=== PATIENT | female | born 1955 | race American Indian/Alaskan Native ===

== ENCOUNTER 2017-02-06 12:57 | Emergency (ER) | payer MEDICARE ==
[2017-02-06 13:29] VITALS: BP 148/95
--- NOTE | 2017-02-06 13:59 | Emergency Department Report ---
Entered by KUMAR ROWE, acting as scribe for ALE PANIAGUA NP. Chief Complaint: Medical Clearance Stated Complaint: NEEDS DIALYSIS - HPI History of Present Illness: 61 y/o female, nontoxic, NAD, well developed, presents to ED to make sure her dialysis port is functioning. She denies fever, chills, drainage, SOB, CP, DRAKE, dizziness, NVD, blurry vision. - Exam Vital Signs: Vital Signs 02/06/17 13:21 Temperature 98.2 F Pulse Rate 86 Respiratory 20 Rate Blood Pressure 148/95 O2 Sat by Pulse 97 Oximetry Physical Exam: GENERAL: The patient is a well-developed, well-nourished male in no apparent distress. Patient is alert and oriented x3. Patient poor historian LUNGS: Clear to auscultation. Non labor breathing. No intercostal retractions. HEART: Regular rate and rhythm without murmur, rubs or gallops. No reproducible MSE screening note: Focused history and physical exam performed. Due to findings the following was ordered: CBC, CMP ED Disposition for MSE Condition: Stable This documentation as recorded by the scribe,KUMAR ROWE,accurately reflects the service I personally performed and the decisions made by me,ALE PANIAGUA, MARIA DOLORES.
[2017-02-06 14:21] LABS: Basophils % (Auto) 0.8 % (0.0-1.8); Hematocrit 35.8 % (30.3-42.9); Hemoglobin 10.6 gm/dl (10.1-14.3); Mean Corpuscular HGB Conc 30 % (30-34); Mean Corpuscular Hemoglobin 26 pg (28-32); Mean Corpuscular Volume 89 fl (79-97); Platelet Count 199 K/mm3 (140-440); Red Blood Count 4.02 M/mm3 (3.65-5.03); Red Cell Distribution Width 20.8 % (13.2-15.2); White Blood Count 3.6 K/mm3 (4.5-11.0)
[2017-02-06 14:41] LABS: Albumin 3.7 g/dL (3.9-5); Albumin/Globulin Ratio 1.2 %; BUN/Creatinine Ratio 6.07; Bilirubin,Total 0.5 mg/dL (0.1-1.2); Calcium 9.8 mg/dL (8.4-10.2); Chloride 107.2 mmol/L (98-107); Potassium 5.8 mmol/L (3.6-5.0); Total Protein 6.8 g/dL (6.3-8.2)
--- NOTE | 2017-02-12 20:37 | ED Elopement Review ---
ED Pt Elopement review - Results review Lab results: Laboratory Tests 02/06/17 02/06/17 13:57 13:57 WBC 3.6 L RBC 4.02 Hgb 10.6 Hct 35.8 MCV 89 MCH 26 L MCHC 30 RDW 20.8 H Plt Count 199 Lymph % (Auto) 34.0 [place] % (Auto) 6.7 Eos % (Auto) 3.0 Baso % (Auto) 0.8 Lymph # 1.2 [place] # 0.2 Eos # 0.1 Baso # 0.0 Seg Neutrophils % 55.5 Seg Neutrophils # 2.0 Sodium 145 Potassium 5.8 H Chloride 107.2 H Carbon Dioxide 22 Anion Gap 22 BUN 48 H Creatinine 7.9 H Estimated GFR 5 BUN/Creatinine Ratio 6.07 Glucose 89 Calcium 9.8 Total Bilirubin 0.50 AST 12 ALT 7 Alkaline Phosphatase 108 Total Protein 6.8 Albumin 3.7 L Albumin/Globulin Ratio 1.2 - Call Back decision Pt Call Back Decision: Pt to F/U with PMD (abnormal lab values)
== END 2017-02-07 03:15 | disposition left against medical advice (07) ==
LOC: ED 12:57
DX: Z46.89 Encounter for fitting and adjustment of other specified devices (principal); Z53.21 Procedure and treatment not carried out due to patient leaving prior to being seen by health care provider
CPT/HCPCS: 36415; 80053; 85025; 93005; 93010

== ENCOUNTER 2019-08-05 17:15 | Inpatient (IN) | payer MEDICARE ==
[2019-08-05] MEDS ORDERED: SODIUM CHLORIDE 0.9% 250ML 250 ML IV ONE (18:35)
--- NOTE | 2019-08-05 18:48 | Emergency Department Report ---
HPI - General Chief Complaint: Extremity Problem,Nontraumatic Time Seen by Provider: 08/05/19 18:28 - HPI HPI: 64-year-old -Citizen Of [place] female presents to the emergency department via EMS from her [facility] facility with complaint of a malfunctioning right chest dialysis permacath. The patient apparently gets dialysis on Sunday, and Sunday and they were unable to do it today due to this clogged or malfunctioning dialysis port. 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 She also has a past medical history of hypertension, drug induced dyskinesia, dystonia, seizures, anemia, anxiety, hyperparathyroidism, schizophrenia, bipolar disorder. Patient has no physical complaints at this time. ED Past Medical Hx - Past Medical History Hx Renal Disease: Yes (renal failure, M, W, F) Hx Arthritis: Yes Hx Psychiatric Treatment: Yes (bipolar,schizophrenia,severe anxiety) Additional medical history: HD - Surgical History Additional Surgical History: hysterectomy, right chest wall permacath - Social History Smoking Status: Never Smoker - Medications Home Medications: Home Medications Medication Instructions Recorded Confirmed Last Taken Type clonazePAM [KlonoPIN] 0.5 mg PO QHS #14 tablet 05/22/19 Unknown Rx oxyCODONE /ACETAMINOPHEN [Percocet 1 tab PO Q6HR PRN #14 tablet 05/22/19 Unknown Rx 5/325] Divalproex ER [Depakote ER] 1,500 mg PO HS 05/29/19 05/29/19 Unknown History Divalproex ER [Depakote ER] 500 mg PO QAM 05/29/19 05/29/19 Unknown History LORazepam [Ativan] 1 mg PO BID 05/29/19 05/29/19 Unknown History Acetaminophen [Acetaminophen TAB] 650 mg PO Q4H PRN tablet 06/03/19 Unknown Rx Capsaicin 0.075% [Zostrix Hp 1 applic TP TID tube 06/03/19 Unknown Rx 0.075%] QUEtiapine [SEROquel] 200 mg PO QHS tablet 06/03/19 Unknown Rx ED Review of Systems ROS: Stated complaint: CLOGGED DIALYSIS PORT Other details as noted in HPI Comment: All other systems reviewed and negative Constitutional: denies: chills, fever Eyes: denies: eye pain, vision change Respiratory: denies: cough, shortness of breath Cardiovascular: denies: chest pain, edema Gastrointestinal: denies: abdominal pain, vomiting Musculoskeletal: denies: back pain, joint swelling Skin: denies: rash, lesions Neurological: denies: headache, weakness Physical Exam - Physical Exam Physical Exam: GENERAL: The patient is well-developed well-nourished. HENT: Normocephalic. Atraumatic. Patient has moist mucous membranes. EYES: Extraocular motions are intact. NECK: Supple. Trachea is midline. CHEST/LUNGS: Clear to auscultation. There is no respiratory distress noted. There is a dialysis catheter in the right chest wall. No surrounding erythema, purulent discharge or signs or symptoms of infection. HEART/CARDIOVASCULAR: Regular. There is no tachycardia. There is no murmur. ABDOMEN: Abdomen is soft, nontender. Patient has normal bowel sounds. There is no abdominal distention. SKIN: Skin is warm and dry. NEURO: The patient is awake, alert, and cooperative. Follows commands. Normal speech. MUSCULOSKELETAL: There is no tenderness or deformity. There is no evidence of acute injury. ED Course - Consultations Consultation #1: 08/06/19 00:03 I spoke to the patient's nephrology service and Dr. Hooper who has agreed to see the patient is a consult. He has recommended giving the patient a dose of vancomycin secondary to her hypotension in case there is some underlying infection. - Central Line Placement Right Femoral Consent Obtained: verbal consent, emergent situation Time Out Performed: Yes Patient Placed on Monitor/Pulse Ox: Yes MD Prep: mask, gown, gloves Central Line Prep: Chlorhexidine scrub Local Anesthesia Used: Lidocaine 1% Amount of Anesthesia Used (mls): 2 Ultrasound Used for Placement: Yes Central Line Lumen Inserted: triple Central Line Position: good blood return, all ports aspirated, flus, sutured in place with nyl Dressing Applied: Tegaderm, sterile gauze/tape Patient Tolerated Procedure: well Complications: none ED Medical Decision Making - Lab Data Result diagrams: 08/05/19 18:51 08/05/19 18:51 - Radiology Data Radiology results: image reviewed interpreted by me: Chest x-ray does not show any acute process. There are no pleural effusions, obvious pneumonia and there is no pneumothorax. - Medical Decision Making This patient was sent in by her [place] [facility] for a malfunctioning dialysis port in her right chest wall. No signs or symptoms of infection. Chest x-ray does not show any pleural effusions or any other acute process. However the patient presents with hypotension. She was given about 750 mL of IV fluid without any improvement and therefore a right femoral central line was placed. She was s tarted on the Levophed. Nephrology was contacted and consult at. The patient will be admitted to the ICU and was accepted for admission by the hospitalist, Dr. Stroud. - Differential Diagnosis sepsis, hypovolemia, pneumonia Critical Care Time: Yes Critical care time in (mins) excluding proc time.: 31 Critical care attestation.: If time is entered above; I have spent that time in minutes in the direct care of this critically ill patient, excluding procedure time. Critical care time was spent on this patient and doing her initial evaluation, multiple re- evaluations, ordering and interpretation of labs and imaging, discussion with the nephrology service. This does not include the time spent doing the central line procedure. Critical Care Time: 31 minutes ED Disposition Clinical Impression: ESRD (end stage renal disease) Hypotension Qualifiers: Hypotension type: unspecified hypotension type Qualified Code(s): I95.9 - Hypotension, unspecified Problem with dialysis access Qualifiers: Encounter type: initial encounter Qualified Code(s): T82.898A - Other specified complication of vascular prosthetic devices, implants and grafts, initial encounter Disposition: OP ADMIT IP TO THIS HOSP Is pt being admited?: Yes Condition: Serious Time of Disposition: 00:05
[2019-08-05 19:05] LABS: Eosinophils % (Auto) 0.2 % (0.0-4.3); Monocytes # (Auto) 0.6 K/mm3 (0.0-0.8); Monocytes % (Auto) 9.4 % (0.0-7.3)
[2019-08-05 19:11] LABS: Hematocrit 40.4 % (30.3-42.9); Hemoglobin 12.2 gm/dl (10.1-14.3); Mean Corpuscular HGB Conc 30 % (30-34); Mean Corpuscular Volume 94 fl (79-97)
[2019-08-05 19:12] LABS: Basophils % (Auto) 0.5 % (0.0-1.8); Lymphocytes # (Auto) 1.5 K/mm3 (1.2-5.4); Lymphocytes % (Auto) 23.2 % (13.4-35.0); Platelet Count 210 K/mm3 (140-440); Red Cell Distribution Width 20.7 % (13.2-15.2)
[2019-08-05 19:21] LABS: Albumin 3.3 g/dL (3.9-5); Calcium 10.4 mg/dL (8.4-10.2)
--- NOTE | 2019-08-05 19:30 | XRay Report ---
CHEST 1 VIEW 08/05/2019 6:40 PM INDICATION / CLINICAL INFORMATION: MAIN: hypotension Pt from [facility], pt was to receive dialysis today, port is clogged per staff a nd needs "cath exchange". COMPARISON: Chest x-ray 2018 FINDINGS: SUPPORT DEVICES: Right internal jugular dialysis catheter has tip in right atrium, unchanged HEART / MEDIASTINUM: No significant abnormality. LUNGS / PLEURA: No significant pulmonary or pleural abnormality. No pneumothorax. ADDITIONAL FINDINGS: No significant additional findings. IMPRESSION: 1. No acute findings. Signer Name: Jay Rosenberg MD Signed: 08/05/2019 7:25 PM Workstation Name: [id number]
[2019-08-05] MEDS ORDERED: SODIUM CHLORIDE 0.9% 500 ML 500 ML IV ONE (20:12)
[2019-08-05] MEDS ORDERED: VANCOMYCIN/NS 1 GM/250 ML 1 GM/250 ML BAG IV ONE (20:54)
--- NOTE | 2019-08-05 23:26 | History and Physical Report ---
History of Present Illness Date of examination: 08/05/19 History of present illness: 64-year-old oriented a history of end-stage renal disease on dialysis, hypertension, bipolar, schizophrenia was sent to the emergency room from dialysis because of nonfunctioning permacath. She was unable to do dialysis today, patient has no complaints. She is hypotensive emergency room, status post IV fluid bolus and vancomycin. Central line was placed and patient was started on levophed review Of Systems: Constitutional: no weight loss, fever, chills Ears, eyes, nose, mouth and throat: no nasal congestion, no nasal discharge, no sinus pressure, blurry vision, diplopia Neck: No neck pain or rigidity. Cardiovascular: No palpitations Respiratory: No cough, shortness of breath Gastrointestinal: No hematochezia, abdominal pain Genitourinary : no dysuria, frequency , hematuria Musculoskeletal: no muscle ache , joint pain Integumentary: no rash, no pruritis Neurological: no parathesias, focal weakness Endocrine: no cold or heat intolerance, no polyuria or polydipsia Hematologic/Lymphatic: no easy bruising, no easy bleeding, no gland swelling Allergic/Immunologic: no urticaria, no angioedema. PAST MEDICAL HISTORY: end-stage renal disease on dialysis, hypertension, bip olar, schizophrenia PAST SURGICAL HISTORY: Hysterectomy FAMILY HISTORY:hypertension, diabetes SOCIAL HISTORY: Denies tobacco, drugs, alcohol Medications and Allergies Allergies Allergy/AdvReac Type Severity Reaction Status Date / Time Penicillins Allergy Rash Verified 02/06/17 13:29 corn AdvReac Unknown Verified 05/14/19 15:01 Home Medications Medication Instructions Recorded Confirmed Last Taken Type clonazePAM [KlonoPIN] 0.5 mg PO QHS #14 tablet 05/22/19 08/06/19 Unknown Rx oxyCODONE /ACETAMINOPHEN [Percocet 1 tab PO Q6HR PRN #14 tablet 05/22/19 Unknown Rx 5/325] Divalproex ER [Depakote ER] 1,500 mg PO HS 05/29/19 08/06/19 Unknown History Divalproex ER [Depakote ER] 500 mg PO QAM 05/29/19 08/06/19 Unknown History LORazepam [Ativan] 1 mg PO BID 05/29/19 08/06/19 Unknown History Acetaminophen [Acetaminophen TAB] 650 mg PO Q4H PRN tablet 06/03/19 08/06/19 Unknown Rx Capsaicin 0.075% [Zostrix Hp 1 applic TP TID tube 06/03/19 Unknown Rx 0.075%] QUEtiapine [SEROquel] 200 mg PO QHS tablet 06/03/19 Unknown Rx Active Meds: Active Medications Norepinephrine 8 mg/ Sodium (Chloride) 250 mls @ 3.75 mls/hr IV TITR CONNOR; Protocol Exam - Physical Exam Narrative exam: General Apperance: The patient sitting in bed no acute distress HEENT: Normocephalic, atraumatic. Pupils equally round and reactive to light, extraocular movement intact, and no sclericterus or JVD or thyromegaly or nodule. Neck supple, no carotid bruit, mucous membranes moist, no exudate or erythema Heart: S1-S2, regular is rhythm Lungs: Clear to auscultation bilaterally, breathing comfortable Abdomen: Positive bowel sounds, soft, nontender, nondistended, no organomegaly Extremities: No edema cyanosis clubbing Skin: sacral decubitus, no rash, nodule, warm and dry Neuro:CN 2 -12 intact, motor/sensory intact, speech is fluent - Constitutional Vitals: Temp Pulse Resp BP Pulse Ox 98.2 F 68 12 96/43 96 08/05/19 21:11 08/05/19 21:11 08/05/19 21:11 08/05/19 21:11 08/05/19 21:11 Results - Labs CBC & Chem 7: 08/05/19 18:51 08/05/19 18:51 Labs: Abnormal lab results 08/05/19 08/05/19 Range/Units 18:51 18:51 RDW 20.7 H (13.2-15.2) % [place] % (Auto) 9.4 H (0.0-7.3) % Potassium 5.1 H (3.6-5.0) mmol/L BUN 65 H (7-17) mg/dL Creatinine 10.0 H (0.7-1.2) mg/dL Calcium 10.4 H (8.4-10.2) mg/dL ALT 5 L (7-56) units/L Albumin 3.3 L (3.9-5) g/dL - Imaging and Cardiology EKG: image reviewed Chest x-ray: report reviewed Assessment and Plan Assessment Malfunctional permacath Hypotensive, rule out sepsis End-stage renal disease on dialysis Bipolar Schizophrenia Plan Admit to medicine Renal was consulted to see the patient, continue levophed drip Start IV Levaquin, status post vancomycin, check cardiac enzymes DVT prophylaxis, consult critical care
[2019-08-06] MEDS: NORepinephrine 8 MG in SODIUM CHLORIDE 0.9% 250ML 242 ML IV SCH ×2 (00:10→06:45)
[2019-08-06] MEDS ORDERED: ONDANSETRON 4 MG/2 ML INJ IV PRN (00:20)
[2019-08-06] MEDS ORDERED: ACETAMINOPHEN 325 MG TAB PO PRN (00:20)
[2019-08-06 01:56] LABS: Creatine Kinase MB 2.8 ng/mL (0.0-4.0)
[2019-08-06 03:48] LABS: Chol/HDL Ratio 5.15 %
[2019-08-06] MEDS ORDERED: ACETAMINOPHEN 325 MG TAB ONE (05:48)
[2019-08-06 05:51] LABS: Basophils # (Auto) 0.1 K/mm3 (0.0-0.1); Basophils % (Auto) 0.4 % (0.0-1.8); Eosinophils # (Auto) 0.1 K/mm3 (0.0-0.4); Eosinophils % (Auto) 0.6 % (0.0-4.3); Lymphocytes # (Auto) 1.5 K/mm3 (1.2-5.4); Lymphocytes % (Auto) 10.9 % (13.4-35.0); Mean Corpuscular HGB Conc 31 % (30-34); Mean Corpuscular Volume 93 fl (79-97); Monocytes # (Auto) 1.3 K/mm3 (0.0-0.8); Monocytes % (Auto) 9.3 % (0.0-7.3); Red Blood Count 3.88 M/mm3 (3.65-5.03)
[2019-08-06 05:53] LABS: Hematocrit 36.2 % (30.3-42.9); Hemoglobin 11.1 gm/dl (10.1-14.3); Red Cell Distribution Width 20.8 % (13.2-15.2)
[2019-08-06 06:07] LABS: Calcium 9.8 mg/dL (8.4-10.2)
[2019-08-06 06:09] LABS: Creatine Kinase MB 3.4 ng/mL (0.0-4.0)
[2019-08-06 06:39] LABS: Platelet Count 226 K/mm3 (140-440)
[2019-08-06] MEDS ORDERED: ENOXAPARIN 30 MG/0.3 ML INJ SUB-Q ONE (09:14)
[2019-08-06] MEDS ORDERED: ONDANSETRON 4 MG/2 ML INJ ONE (09:17)
[2019-08-06] MEDS: ENOXAPARIN 30 MG/0.3 ML INJ SUB-Q SCH (09:30)
--- NOTE | 2019-08-06 14:34 | Progress Note ---
Assessment and Plan Assessment and plan: Malfunctional permacath Hypotensive, to rule out sepsis End-stage renal disease on dialysis Bipolar Schizophrenia Plan Admitted to Tele Nephrology consulted to see the patient, continue levophed drip Started on IV Levaquin, status post vancomycin, check cardiac enzymes Consult ID Consult Vasc Surgeon History Interval history: Patient sent in for malfunctioning permcath, found to be hypotensive Hospitalist Physical - Physical exam Narrative exam: Gen: Not in acute distress, lying in bed, HEENT: Normocephalic, atraumatic Neck: supple, no JVD Heart: S1 and S2 reg, no murmurs, rubs or gallop Lungs: Clear to auscultation bilaterally, Permacath right upper chest wall Abd: soft, non tender, non distended, normal BS, Ext: No edema, no clubbing, no cyanosis Neuro: Awake, alert, oriented X 3, no focal neurological signs - Constitutional Vitals: Temp Pulse Resp BP Pulse Ox 98.3 F 76 16 107/58 100 08/06/19 12:15 08/06/19 12:15 08/06/19 12:15 08/06/19 12:15 08/06/19 12:15 Results - Labs CBC & Chem 7: 08/07/19 05:13 08/07/19 05:13 Labs: Laboratory Last Values WBC 14.0 K/mm3 (4.5-11.0) H 08/06/19 05:42 RBC 3.88 M/mm3 (3.65-5.03) 08/06/19 05:42 Hgb 11.1 gm/dl (10.1-14.3) 08/06/19 05:42 Hct 36.2 % (30.3-42.9) 08/06/19 05:42 MCV 93 fl (79-97) 08/06/19 05:42 MCH 29 pg (28-32) 08/06/19 05:42 MCHC 31 % (30-34) 08/06/19 05:42 RDW 20.8 % (13.2-15.2) H 08/06/19 05:42 Plt Count 226 K/mm3 (140-440) 08/06/19 05:42 Lymph % (Auto) 10.9 % (13.4-35.0) L 08/06/19 05:42 [place] % (Auto) 9.3 % (0.0-7.3) H 08/06/19 05:42 Eos % (Auto) 0.6 % (0.0-4.3) 08/06/19 05:42 Baso % (Auto) 0.4 % (0.0-1.8) 08/06/19 05:42 Lymph # 1.5 K/mm3 (1.2-5.4) 08/06/19 05:42 [place] # 1.3 K/mm3 (0.0-0.8) H 08/06/19 05:42 Eos # 0.1 K/mm3 (0.0-0.4) 08/06/19 05:42 Baso # 0.1 K/mm3 (0.0-0.1) 08/06/19 05:42 Seg Neutrophils % 78.8 % (40.0-70.0) H 08/06/19 05:42 Seg Neutrophils # 11.0 K/mm3 (1.8-7.7) H 08/06/19 05:42 Sodium 139 mmol/L (137-145) 08/06/19 05:42 Potassium 4.1 mmol/L (3.6-5.0) 08/06/19 05:42 Chloride 99.9 mmol/L (98-107) 08/06/19 05:42 Carbon Dioxide 17 mmol/L (22-30) L 08/06/19 05:42 Anion Gap 26 mmol/L 08/06/19 05:42 BUN 65 mg/dL (7-17) H 08/06/19 05:42 Creatinine 9.9 mg/dL (0.7-1.2) H 08/06/19 05:42 Estimated GFR 5 ml/min 08/06/19 05:42 BUN/Creatinine Ratio 7 % 08/06/19 05:42 Glucose 158 mg/dL (65-100) H 08/06/19 05:42 Calcium 9.8 mg/dL (8.4-10.2) 08/06/19 05:42 Total Bilirubin 0.20 mg/dL (0.1-1.2) 08/05/19 18:51 AST 20 units/L (5-40) 08/05/19 18:51 ALT 5 units/L (7-56) L 08/05/19 18:51 Alkaline Phosphatase 62 units/L (35-129) 08/05/19 18:51 Total Creatine Kinase 25 units/L (30-135) L 08/06/19 05:42 CK-MB (CK-2) 3.4 ng/mL (0.0-4.0) 08/06/19 05:42 CK-MB (CK-2) Rel Index 13.6 (0-4) H 08/06/19 05:42 Troponin T 0.048 ng/mL (0.00-0.029) H 08/06/19 05:42 Total Protein 7.0 g/dL (6.3-8.2) 08/05/19 18:51 Albumin 3.3 g/dL (3.9-5) L 08/05/19 18:51 Albumin/Globulin Ratio 0.9 % 08/05/19 18:51 Triglycerides 204 mg/dL (2-149) H 08/06/19 01:08 Cholesterol 170 mg/dL (50-199) 08/06/19 01:08 LDL Cholesterol Direct 99 mg/dL (50-130) 08/06/19 01:08 HDL Cholesterol 33 mg/dL (40-59) L 08/06/19 01:08 Cholesterol/HDL Ratio 5.15 % 08/06/19 01:08 TSH 1.170 mlU/mL (0.270-4.200) 08/05/19 19:18 Active Medications - Current Medications Current Medications: Generic Name Dose Route Start Last Admin Trade Name Freq PRN Reason Stop Dose Admin Acetaminophen 650 mg 08/06/19 00:20 08/06/19 05:51 Tylenol PO 650 mg Q4H PRN Administration Pain MILD(1-3)/Fever >100.5/DRAKE Enoxaparin Sodium 30 mg 08/06/19 10:00 08/06/19 09:30 Enoxaparin SUB-Q 30 mg QDAY CONNOR Administration Norepinephrine 8 mg/ Sodium 250 mls @ 3.75 mls/hr 08/05/19 23:45 08/06/19 11:05 Chloride IV 6 mcg/min TITR CONNOR 11.25 mls/hr Titration Protocol 2 MCG/MIN Levofloxacin/Dextrose 250 mg in 50 mls @ 50 mls/hr 08/06/19 22:00 Levaquin 250mg/50ml IV Q24H [facility] Protocol Ondansetron HCl 4 mg 08/06/19 00:20 08/06/19 09:23 Zofran IV 4 mg Q8H PRN Administration Nausea And Vomiting Sodium Chloride 10 ml 08/06/19 10:00 08/06/19 10:23 Sodium Chloride Flush Syringe 10 Ml IV 10 ml BID CONNOR Administration Sodium Chloride 10 ml 08/06/19 00:20 08/06/19 05:40 Sodium Chloride Flush Syringe 10 Ml IV 10 ml PRN PRN Administration LINE FLUSH
[2019-08-06] MEDS ORDERED: ALTEPLASE 2 MG INJ IV ONE ×2 (14:41)
[2019-08-06] MEDS ORDERED: WATER FOR INJ Sterile (PF) 10 ML ONE (14:47)
--- NOTE | 2019-08-06 14:47 | Consultation ---
History of Present Illness - Reason for Consult end stage renal disease - History of Present Illness 64-year-old with medical history significant for hypertension, end-stage renal disease admitted with complaint of malfunctioning PermCath. Was started on norepinephrine since due to hypotension on arrival she denies any shortness of breath denies any orthopnea PND denies any fevers chills denies any nausea or vomiting denies any abdominal pain she has not been able to have dialysis Medications and Allergies Allergies Allergy/AdvReac Type Severity Reaction Status Date / Time Penicillins Allergy Rash Verified 02/06/17 13:29 corn AdvReac Unknown Verified 05/14/19 15:01 Home Medications Medication Instructions Recorded Confirmed Last Taken Type clonazePAM [KlonoPIN] 0.5 mg PO QHS #14 tablet 05/22/19 08/06/19 Unknown Rx oxyCODONE /ACETAMINOPHEN [Percocet 1 tab PO Q6HR PRN #14 tablet 05/22/19 Unknown Rx 5/325] Divalproex ER [Depakote ER] 1,500 mg PO HS 05/29/19 08/06/19 Unknown History Divalproex ER [Depakote ER] 500 mg PO QAM 05/29/19 08/06/19 Unknown History LORazepam [Ativan] 1 mg PO BID 05/29/19 08/06/19 Unknown History Acetaminophen [Acetaminophen TAB] 650 mg PO Q4H PRN tablet 06/03/19 08/06/19 Unknown Rx Capsaicin 0.075% [Zostrix Hp 1 applic TP TID tube 06/03/19 Unknown Rx 0.075%] QUEtiapine [SEROquel] 200 mg PO QHS tablet 06/03/19 Unknown Rx Active Meds: Active Medications Acetaminophen (Tylenol) 650 mg PO Q4H PRN PRN Reason: Pain MILD(1-3)/Fever >100.5/DRAKE Last Admin: 08/06/19 05:51 Dose: 650 mg Documented by: Enoxaparin Sodium (Enoxaparin) 30 mg SUB-Q QDAY CONNOR Last Admin: 08/06/19 09:30 Dose: 30 mg Documented by: Norepinephrine 8 mg/ Sodium (Chloride) 250 mls @ 3.75 mls/hr IV TITR CONNOR; Protocol Last Titration: 08/06/19 11:05 Dose: 6 mcg/min, 11.25 mls/hr Documented by: Levofloxacin/Dextrose (Levaquin 250mg/50ml) 250 mg in 50 mls @ 50 mls/hr IV Q24H CONNOR; Protocol Ondansetron HCl (Zofran) 4 mg IV Q8H PRN PRN Reason: Nausea And Vomiting Last Admin: 08/06/19 09:23 Dose: 4 mg Documented by: Sodium Chloride (Sodium Chloride Flush Syringe 10 Ml) 10 ml IV BID CONNOR Last Admin: 08/06/19 10:23 Dose: 10 ml Documented by: Sodium Chloride (Sodium Chloride Flush Syringe 10 Ml) 10 ml IV PRN PRN PRN Reason: LINE FLUSH Last Admin: 08/06/19 05:40 Dose: 10 ml Documented by: Review of Systems Constitutional: no weight loss, no weight gain Ears, nose, mouth and throat: no deferred, no ear pain, no ear discharge Breasts: no deferred, no normal Cardiovascular: no chest pain, no orthopnea, no dyspnea on exertion Respiratory: no cough, no cough with sputum Gastrointestinal: no abdominal pain, no nausea, no vomiting Musculoskeletal: no neck stiffness, no neck pain Integumentary: no deferred, no rash Neurological: no head injury, no transient paralysis Psychiatric: no anxiety, no memory loss Endocrine: no cold intolerance, no heat intolerance Exam - Vital Signs Vital signs: Vital Signs Temp Pulse Resp BP Pulse Ox 98.1 F 80 14 88/44 100 08/05/19 18:55 08/05/19 18:55 08/05/19 18:55 08/05/19 18:55 08/05/19 18:55 - General Appearance General appearance: well-developed, well-nourished EENT: ATNC, PERRL, mucous membranes moist Neck: Present: neck supple Respiratory: Decreased Breath Sounds Heart: regular, S1S2 Gastrointestinal: Present: normal, normoactive bowel sounds Integumentary: no rash Neurologic: alert and oriented x3, CN 3-12 intact Musculoskeletal: Present: other (no edema) Psychiatric: mood/affect appropriate Results - Lab Results 08/06/19 05:42 08/06/19 05:42 Most recent lab results Calcium 9.8 mg/dL (8.4-10.2) 08/06/19 05:42 Assessment and Plan - Patient Problems (1) ESRD (end stage renal disease) Current Visit: Yes Status: Acute Plan to address problem: ESRD Has malfunctioning PermCath We will attempt alteplase in line We'll discuss with vascular surgery also requires a graft (2) Hypotension Current Visit: Yes Status: Acute Qualifiers: Hypotension type: unspecified hypotension type Qualified Code(s): I95.9 - Hypotension, unspecified Plan to address problem: Hypotension Currently on Levophed We'll add midodrine (3) Anemia in chronic kidney disease Current Visit: No Status: Acute Plan to address problem: Mild anemia Hemoglobin 11 g/dl Secondary to chronic kidney disease Monitor CBC (4) Metabolic acidosis Current Visit: No Status: Acute Plan to address problem: Metabolic acidosis Secondary to chronic kidney disease
[2019-08-06 15:41] LABS: Hepatitis B Surface Antigen Non-Reactive (Negative); Hepatitis C Virus Antibody Non-Reactive (NonReactive)
[2019-08-06] MEDS: MIDODRINE 5 MG TAB PO SCH (18:03)
[2019-08-07 06:15] LABS: Hematocrit 27.3 % (30.3-42.9); Hemoglobin 8.5 gm/dl (10.1-14.3); Mean Corpuscular HGB Conc 31 % (30-34); Mean Corpuscular Volume 92 fl (79-97); Platelet Count 156 K/mm3 (140-440); Red Blood Count 2.95 M/mm3 (3.65-5.03)
[2019-08-07 06:20] LABS: Red Cell Distribution Width 21.1 % (13.2-15.2)
[2019-08-07 06:46] LABS: Calcium 8.9 mg/dL (8.4-10.2)
[2019-08-07] MEDS ORDERED: HEPARIN 10,000 UNITS/10 ML VIAL ONE (08:13)
[2019-08-07] MEDS ORDERED: HEPARIN/NS 5000 UNIT/500ML 500 ML IR ONE (08:13)
[2019-08-07] MEDS ORDERED: LIDOCAINE (2%) 20 MG/1 ML VIAL 20 ML MDV INFILTRATI ONE (08:13)
[2019-08-07] MEDS ORDERED: fentaNYL 100 MCG/2 ML INJ ONE (08:53)
[2019-08-07] MEDS ORDERED: MIDAZOLAM 2 MG/2 ML INJ ONE (08:53)
[2019-08-07] MEDS ORDERED: SODIUM CHLORIDE 0.9% 250ML 250 ML ONE (08:53)
--- NOTE | 2019-08-07 09:26 | Post Operative Note ---
Pre-op diagnosis: ESRD Post-op diagnosis: same Procedure: Right IJ Permcath Exchange with Fibrin Sheath Disruption Anesthesia: MAC, local Surgeon: MELINDA VILLANUEVA Estimated blood loss: minimal Pathology: none Condition: stable Disposition: floor
--- NOTE | 2019-08-07 09:50 | Operative Report ---
STAFF SURGEON: Dr. Edin Gamez. PREOPERATIVE DIAGNOSIS: End-stage renal disease. POSTOPERATIVE DIAGNOSIS: End-stage renal disease. PROCEDURE PERFORMED: 1. Right IJ PermCath exchange with fibrin sheath disruption. 2. Monitored conscious sedation. COMPLICATIONS: None. ESTIMATED BLOOD LOSS: Less than 10 mL. ANESTHESIA: Local MAC. INDICATIONS FOR PROCEDURE: This is a 64-year-old female with end-stage renal disease, on hemodialysis via right IJ Perm-A-Cath, who is currently hospitalized due to a malfunctioning PermCath that failed a TPA infusion; therefore, vascular consultation was obtained for evaluation and possible intervention. The patient was explained the risks, benefits, alternatives of the procedure, expressed understanding and wished to proceed. DESCRIPTION OF PROCEDURE: After appropriate consent was obtained, the patient was brought back to the shellfish processing laborer, placed on table in supine position. The right neck and chest were prepped and draped in the usual sterile fashion with ChloraPrep. Appropriate timeout was performed indicating correct patient, procedure and site of the procedure. We then began the intervention by freeing up the cuff of the existing PermCath with blunt dissection. This was then retracted several centimeters. Then, a diagnostic venogram was performed through the existing PermCath, which demonstrated the 5-Guamanian sheath on the tip of the catheter. A stiff J-wire was then placed through the catheter into the inferior vena cava. The catheter was removed and discarded. The wire was wiped down with 3 swabs of Betadine-soaked gauze and 3 swabs of saline-soaked gauze. We then proceeded to take a 12 mm x 4 cm balloon, placed it over the wire into the SVC and proceeded to perform balloon angioplasty of the fibrin sheath for an effective disruption. This was then taken down and removed. A new 19 cm straight PermCath was placed over the wire into the SVC. The wire was removed. Both lumens fernando blood appropriately, were flushed heparinized saline and appropriate amount of heparin was placed in each port. The catheter was then sutured in place with a 3-0 nylon. Appropriate dressing was placed. The patient tolerated the procedure well, emerged from the conscious sedation and was sent to recovery in stable condition. JOB# [id number] BERTA/VIVEK MORGAN
[2019-08-07] MEDS: MIDODRINE 5 MG TAB PO SCH ×4 (10:02→17:19)
[2019-08-07] MEDS: ENOXAPARIN 30 MG/0.3 ML INJ SUB-Q SCH ×2 (13:26→13:35)
--- NOTE | 2019-08-07 15:54 | Progress Note ---
Assessment and Plan - Patient Problems (1) ESRD (end stage renal disease) Current Visit: Yes Status: Acute Plan to address problem: ESRD on HD continue HDTTS. Has malfunctioning PermCath now s/p perm cath exchange Appreciate vascular surgery also requires a graft (2) Hypotension Current Visit: Yes Status: Acute Qualifiers: Hypotension type: unspecified hypotension type Qualified Code(s): I95.9 - Hypotension, unspecified Plan to address problem: Hypotension off pressors continue midodrine (3) Anemia in chronic kidney disease Current Visit: No Status: Acute Plan to address problem: Mild anemia Hemoglobin 11 g/dl Secondary to chronic kidney disease Monitor CBC (4) Metabolic acidosis Current Visit: No Status: Acute Plan to address problem: Metabolic acidosis Secondary to chronic kidney disease Subjective Interval history: 64-year-old with medical history significant for hypertension, end-stage renal disease admitted with complaint of malfunctioning PermCath. Was started on norepinephrine since due to hypotension on arrival she denies any shortness of breath denies any orthopnea PND denies any fevers chills denies any nausea or vomiting denies any abdominal pain she has not been able to have dialysis Patient seen today completed dialysis s/p perm cath exchange. Objective - Vital Signs Vital signs: Vital Signs - 12hr 08/07/19 08/07/19 08/07/19 04:02 07:45 09:30 Temperature 98.0 F 97.6 F Pulse Rate 71 65 58 L Pulse Rate [ From Monitor] Respiratory 18 16 Rate Blood Pressure 95/41 90/44 O2 Sat by Pulse 97 Oximetry 08/07/19 08/07/19 08/07/19 09:50 10:00 10:15 Temperature Pulse Rate 58 L 52 L 46 L Pulse Rate [ From Monitor] Respiratory Rate Blood Pressure 90/44 94/44 96/46 O2 Sat by Pulse Oximetry 08/07/19 08/07/19 08/07/19 10:30 10:45 11:00 Temperature Pulse Rate 46 L 49 L 41 L Pulse Rate [ From Monitor] Respiratory Rate Blood Pressure 97/46 102/47 90/39 O2 Sat by Pulse Oximetry 08/07/19 08/07/19 08/07/19 11:15 11:30 11:45 Temperature Pulse Rate 41 L 44 L 41 L Pulse Rate [ From Monitor] Respiratory Rate Blood Pressure 94/40 95/41 100/47 O2 Sat by Pulse Oximetry 08/07/19 08/07/19 08/07/19 12:00 12:15 12:30 Temperature Pulse Rate 49 L 42 L 46 L Pulse Rate [ From Monitor] Respiratory Rate Blood Pressure 93/36 90/40 101/43 O2 Sat by Pulse Oximetry 08/07/19 08/07/19 08/07/19 12:45 13:29 13:32 Temperature 97.4 F L Pulse Rate 50 L 50 L 52 L Pulse Rate [ From Monitor] Respiratory 16 Rate Blood Pressure 99/42 99/42 103/42 O2 Sat by Pulse Oximetry 08/07/19 14:17 Temperature Pulse Rate Pulse Rate [ 56 L From Monitor] Respiratory 18 Rate Blood Pressure O2 Sat by Pulse 97 Oximetry - General Appearance General appearance: well-developed, well-nourished EENT: ATNC, PERRL, mucous membranes moist Neck: no JVD Respiratory: Present: Clear to Ascultation Cardiology: regular, S1S2 Gastrointestinal: normal, normoactive bowel sounds Neurologic: CN 3-12 intact, other (awake and alert. ) Psychiatric: mood/affect appropriate - Lab 08/07/19 05:13 08/07/19 05:13 Most recent lab results Calcium 8.9 mg/dL (8.4-10.2) 08/07/19 05:13 - Imaging Chest x-ray: image reviewed (CXR reviewed no edema. ) Medications & Allergies - Medications Allergies/Adverse Reactions: Allergies Penicillins Allergy (Verified 02/06/17 13:29) Rash corn Adverse Reaction (Verified 05/14/19 15:01) Unknown Home Medications: Home Medications Medication Instructions Recorded Confirmed Last Taken Type clonazePAM [KlonoPIN] 0.5 mg PO QHS #14 tablet 05/22/19 08/06/19 Unknown Rx oxyCODONE /ACETAMINOPHEN [Percocet 1 tab PO Q6HR PRN #14 tablet 05/22/19 08/07/19 Unknown Rx 5/325] Divalproex ER [Depakote ER] 1,500 mg PO HS 05/29/19 08/06/19 Unknown History Divalproex ER [Depakote ER] 500 mg PO QAM 05/29/19 08/06/19 Unknown History LORazepam [Ativan] 1 mg PO BID 05/29/19 08/06/19 Unknown History Acetaminophen [Acetaminophen TAB] 650 mg PO Q4H PRN tablet 06/03/19 08/06/19 Unknown Rx Capsaicin 0.075% [Zostrix Hp 1 applic TP TID tube 06/03/19 08/07/19 Unknown Rx 0.075%] QUEtiapine [SEROquel] 200 mg PO QHS tablet 06/03/19 08/07/19 Unknown Rx Active Medications: Generic Name Dose Route Start Last Admin Trade Name Freq PRN Reason Stop Dose Admin Acetaminophen 650 mg 08/06/19 00:20 08/06/19 05:51 Tylenol PO 650 mg Q4H PRN Administration Pain MILD(1-3)/Fever >100.5/DRAKE Enoxaparin Sodium 30 mg 08/06/19 10:00 08/07/19 13:35 Enoxaparin SUB-Q Not Given QDAY [facility] Levofloxacin/Dextrose 250 mg in 50 mls @ 50 mls/hr 08/08/19 10:00 Levaquin 250mg/50ml IV Q48HR [facility] Protocol Midodrine 10 mg 08/06/19 16:00 08/07/19 13:32 Proamatine PO Not Given TID@0800,1200,1600 [facility] Ondansetron HCl 4 mg 08/06/19 00:20 08/06/19 09:23 Zofran IV 4 mg Q8H PRN Administration Nausea And Vomiting Sodium Chloride 10 ml 08/06/19 10:00 08/07/19 13:36 Sodium Chloride Flush Syringe 10 Ml IV 10 ml BID CONNOR Administration Sodium Chloride 10 ml 08/06/19 00:20 08/06/19 05:40 Sodium Chloride Flush Syringe 10 Ml IV 10 ml PRN PRN Administration LINE FLUSH
--- NOTE | 2019-08-07 16:02 | Progress Note ---
Subjective Date of service: 08/07/19 Interval history: patient able to undergo dialysis after permcath exchange without issue. patient no longer requiring levophed. spoke with patient's Farmworker Rice and would like us to take patient for extremity dialysis creation. will plan for left arm av graft insertion tomorrow. NPO p ELIAZAR. Objective - Constitutional Vitals: Vital Signs - 12hr 08/07/19 08/07/19 08/07/19 04:02 07:45 09:30 Temperature 98.0 F 97.6 F Pulse Rate 71 65 58 L Pulse Rate [ From Monitor] Respiratory 18 16 Rate Blood Pressure 95/41 90/44 O2 Sat by Pulse 97 Oximetry 08/07/19 08/07/19 08/07/19 09:50 10:00 10:15 Temperature Pulse Rate 58 L 52 L 46 L Pulse Rate [ From Monitor] Respiratory Rate Blood Pressure 90/44 94/44 96/46 O2 Sat by Pulse Oximetry 08/07/19 08/07/19 08/07/19 10:30 10:45 11:00 Temperature Pulse Rate 46 L 49 L 41 L Pulse Rate [ From Monitor] Respiratory Rate Blood Pressure 97/46 102/47 90/39 O2 Sat by Pulse Oximetry 08/07/19 08/07/19 08/07/19 11:15 11:30 11:45 Temperature Pulse Rate 41 L 44 L 41 L Pulse Rate [ From Monitor] Respiratory Rate Blood Pressure 94/40 95/41 100/47 O2 Sat by Pulse Oximetry 08/07/19 08/07/19 08/07/19 12:00 12:15 12:30 Temperature Pulse Rate 49 L 42 L 46 L Pulse Rate [ From Monitor] Respiratory Rate Blood Pressure 93/36 90/40 101/43 O2 Sat by Pulse Oximetry 08/07/19 08/07/19 08/07/19 12:45 13:29 13:32 Temperature 97.4 F L Pulse Rate 50 L 50 L 52 L Pulse Rate [ From Monitor] Respiratory 16 Rate Blood Pressure 99/42 99/42 103/42 O2 Sat by Pulse Oximetry 08/07/19 14:17 Temperature Pulse Rate Pulse Rate [ 56 L From Monitor] Respiratory 18 Rate Blood Pressure O2 Sat by Pulse 97 Oximetry - Labs CBC & Chem 7: 08/07/19 05:13 08/07/19 05:13 Labs: Abnormal lab results 08/07/19 08/07/19 Range/Units 05:13 05:13 WBC 3.5 L (4.5-11.0) K/mm3 RBC 2.95 L (3.65-5.03) M/mm3 Hgb 8.5 L (10.1-14.3) gm/dl Hct 27.3 L D (30.3-42.9) % RDW 21.1 H (13.2-15.2) % Carbon Dioxide 21 L (22-30) mmol/L BUN 38 H (7-17) mg/dL Creatinine 7.0 H (0.7-1.2) mg/dL Medications & Allergies - Medications Allergies/Adverse Reactions: Allergies Penicillins Allergy (Verified 02/06/17 13:29) Rash corn Adverse Reaction (Verified 05/14/19 15:01) Unknown Home Medications: Home Medications Medication Instructions Recorded Confirmed Last Taken Type clonazePAM [KlonoPIN] 0.5 mg PO QHS #14 tablet 05/22/19 08/06/19 Unknown Rx oxyCODONE /ACETAMINOPHEN [Percocet 1 tab PO Q6HR PRN #14 tablet 05/22/19 08/07/19 Unknown Rx 5/325] Divalproex ER [Depakote ER] 1,500 mg PO HS 05/29/19 08/06/19 Unknown History Divalproex ER [Depakote ER] 500 mg PO QAM 05/29/19 08/06/19 Unknown History LORazepam [Ativan] 1 mg PO BID 05/29/19 08/06/19 Unknown History Acetaminophen [Acetaminophen TAB] 650 mg PO Q4H PRN tablet 06/03/19 08/06/19 Unknown Rx Capsaicin 0.075% [Zostrix Hp 1 applic TP TID tube 06/03/19 08/07/19 Unknown Rx 0.075%] QUEtiapine [SEROquel] 200 mg PO QHS tablet 06/03/19 08/07/19 Unknown Rx Active Medications: Generic Name Dose Route Start Last Admin Trade Name Freq PRN Reason Stop Dose Admin Acetaminophen 650 mg 08/06/19 00:20 08/06/19 05:51 Tylenol PO 650 mg Q4H PRN Administration Pain MILD(1-3)/Fever >100.5/DRAKE Enoxaparin Sodium 30 mg 08/06/19 10:00 08/07/19 13:35 Enoxaparin SUB-Q Not Given QDAY [facility] Levofloxacin/Dextrose 250 mg in 50 mls @ 50 mls/hr 08/08/19 10:00 Levaquin 250mg/50ml IV Q48HR [facility] Protocol Midodrine 10 mg 08/06/19 16:00 08/07/19 13:32 Proamatine PO Not Given TID@0800,1200,1600 [facility] Ondansetron HCl 4 mg 08/06/19 00:20 08/06/19 09:23 Zofran IV 4 mg Q8H PRN Administration Nausea And Vomiting Sodium Chloride 10 ml 08/06/19 10:00 08/07/19 13:36 Sodium Chloride Flush Syringe 10 Ml IV 10 ml BID CONNOR Administration Sodium Chloride 10 ml 08/06/19 00:20 08/06/19 05:40 Sodium Chloride Flush Syringe 10 Ml IV 10 ml PRN PRN Administration LINE FLUSH
--- NOTE | 2019-08-07 16:15 | Consultation ---
History of Present Illness - Reason for Consult Consult date: 08/07/19 SIRS Requesting physician: LEANA MONDRAGON - History of Present Illness 64 y/o female with ESRD on HD, hypertension and schizophrenia admitted on due to a malfunctional HD access. She has a perm cath and was unable to dialyze today. She denies any fever, chills, N/V/D, cough or other respiratory symptoms. She reports she developed a sacral pressure irritation recently and chinchilla. In the ED, temp 98.1, HR 80, BP 88/44. WBC 6.6. CXR negative. Blood culture 08/05/2019 no growth so far. ID consulted for the management of SIRS r/o sepsis. Review of Systems: Bold if positive, otherwise negative General: fevers, chills, rigors HEENT: visual disturbance, diplopia, eye pain Respiratory: cough, sputum, hemoptysis, shortness of breath Cardiovascular: chest pain, syncope Gastrointestinal: nausea, vomiting, diarrhea, abdominal pain Genitourinary: dysuria, hematuria, flank pain Musculoskeletal: neck pain, back pain, joint pain, edema Neurologic: headaches, seizures Hematologic: easy bruising or bleeding Endocrine: night sweats, acute weight loss Skin: left thigh boil, erythema, tenderness Psychiatric: suicidal, homicidal ideation Medications and Allergies Allergies Allergy/AdvReac Type Severity Reaction Status Date / Time Penicillins Allergy Rash Verified 02/06/17 13:29 corn AdvReac Unknown Verified 05/14/19 15:01 Home Medications Medication Instructions Recorded Confirmed Last Taken Type clonazePAM [KlonoPIN] 0.5 mg PO QHS #14 tablet 05/22/19 08/06/19 Unknown Rx oxyCODONE /ACETAMINOPHEN [Percocet 1 tab PO Q6HR PRN #14 tablet 05/22/19 08/07/19 Unknown Rx 5/325] Divalproex ER [Depakote ER] 1,500 mg PO HS 05/29/19 08/06/19 Unknown History Divalproex ER [Depakote ER] 500 mg PO QAM 05/29/19 08/06/19 Unknown History LORazepam [Ativan] 1 mg PO BID 05/29/19 08/06/19 Unknown History Acetaminophen [Acetaminophen TAB] 650 mg PO Q4H PRN tablet 06/03/19 08/06/19 Unknown Rx Capsaicin 0.075% [Zostrix Hp 1 applic TP TID tube 06/03/19 08/07/19 Unknown Rx 0.075%] QUEtiapine [SEROquel] 200 mg PO QHS tablet 06/03/19 08/07/19 Unknown Rx Active Meds: Active Medications Acetaminophen (Tylenol) 650 mg PO Q4H PRN PRN Reason: Pain MILD(1-3)/Fever >100.5/DRAKE Last Admin: 08/06/19 05:51 Dose: 650 mg Documented by: Enoxaparin Sodium (Enoxaparin) 30 mg SUB-Q QDAY [facility] Last Admin: 08/07/19 13:35 Dose: Not Given Documented by: Levofloxacin/Dextrose (Levaquin 250mg/50ml) 250 mg in 50 mls @ 50 mls/hr IV Q48HR [facility]; Protocol Midodrine (Proamatine) 10 mg PO TID@0800,1200,1600 [facility] Last Admin: 08/07/19 13:32 Dose: Not Given Documented by: Ondansetron HCl (Zofran) 4 mg IV Q8H PRN PRN Reason: Nausea And Vomiting Last Admin: 08/06/19 09:23 Dose: 4 mg Documented by: Sodium Chloride (Sodium Chloride Flush Syringe 10 Ml) 10 ml IV BID [facility] Last Admin: 08/07/19 13:36 Dose: 10 ml Documented by: Sodium Chloride (Sodium Chloride Flush Syringe 10 Ml) 10 ml IV PRN PRN PRN Reason: LINE FLUSH Last Admin: 08/06/19 05:40 Dose: 10 ml Documented by: Physical Examination - Physical Exam Narrative exam: Constitutional: Alert, cooperative. No acute distress Head, Ears, Nose: Normocephalic, atraumatic. External ears, nose normal Eyes: Conjunctivae/corneas clear. No icterus. No ptosis. Neck: Supple, no meningeal signs Oral: dentition fair, no thrush Cardiovascular: S1, S2 normal. Respiratory: Good air entry, clear to auscultation bilaterally GI: Soft, non-tender Musculoskeletal: mild january leg edema Skin: +sacral decubitus stage I-II no grossly infected Hem/Lymphatic: No palpable cervical or supraclavicular nodes. No lymphangitis Psych: no agitated Neurological: Awake, oriented - Constitutional Vitals: Vital Signs Temp Pulse Resp BP Pulse Ox 97.4 F L 56 L 18 103/42 97 08/07/19 13:32 08/07/19 14:17 08/07/19 14:17 08/07/19 13:32 08/07/19 14:17 Temperature -Last 24 Hours Temperature 97.4 F Temperature 97.6 F Temperature 98.0 F Temperature 98 F Temperature 97.8 F Temperature 97.7 F Temperature 98.6 F Temperature 98.6 F Results - Labs CBC & Chem 7: 08/07/19 05:13 08/07/19 05:13 Labs: Abnormal lab results 08/07/19 08/07/19 Range/Units 05:13 05:13 WBC 3.5 L (4.5-11.0) K/mm3 RBC 2.95 L (3.65-5.03) M/mm3 Hgb 8.5 L (10.1-14.3) gm/dl Hct 27.3 L D (30.3-42.9) % RDW 21.1 H (13.2-15.2) % Carbon Dioxide 21 L (22-30) mmol/L BUN 38 H (7-17) mg/dL Creatinine 7.0 H (0.7-1.2) mg/dL Assessment and Plan Cultures: Blood culture 08/04/2019 no growth today Assessment: 64 y/o female with ESRD on HD, hypertension and schizophrenia admitted on due to a malfunctional HD access: 1) SIRS r/o sepsis: noted hypotension/shock on admission initially on pressors, wbc was normal then went up to 14K and then 3.5. BP is now better. Blood culture 08/05/2019 no growth so far. CXR negative. Perm cath was exchange noted fibrin sheath. No purulence. Sacral decubitus does not look infected. Recs: f/u blood culture wound care monitor off antibiotics Will follow. Jolynn Walker MD Infectious Diseases Executor Of [employer] [facility] M [phone] O [phone]
--- NOTE | 2019-08-07 20:28 | Progress Note ---
Assessment and Plan Assessment and plan: Malfunctional permacath Hypotensive, to rule out sepsis End-stage renal disease on dialysis Bipolar Schizophrenia Plan Admitted to [facility] Surgeon, did Permcath exchange today Nephrology consulted , following Was on Levophed, weaned off Started on IV Levaquin, status post vancomycin, Consult ID, I discussed with Dr. Landaverde Likely dc home in 1-2 days History Interval history: Patient sent in for malfunctioning permcath, found to be hypotensive Right IJ Permcath exchange Hospitalist Physical - Physical exam Narrative exam: Gen: Not in acute distress, lying in bed, HEENT: Normocephalic, atraumatic Neck: supple, no JVD. RIJ Permcath Heart: S1 and S2 reg, no murmurs, rubs or gallop Lungs: Clear to auscultation bilaterally, Abd: soft, non tender, non distended, normal BS, Ext: No edema, no clubbing, no cyanosis Neuro: Awake, alert, oriented X 3, no focal neurological signs - Constitutional Vitals: Temp Pulse Resp BP Pulse Ox 99.2 F 75 18 103/44 73 L 08/07/19 19:28 08/07/19 19:28 08/07/19 19:28 08/07/19 19:28 08/07/19 19:28 Results - Labs CBC & Chem 7: 08/07/19 05:13 08/07/19 05:13 Labs: Laboratory Last Values WBC 3.5 K/mm3 (4.5-11.0) L 08/07/19 05:13 RBC 2.95 M/mm3 (3.65-5.03) L 08/07/19 05:13 Hgb 8.5 gm/dl (10.1-14.3) L 08/07/19 05:13 Hct 27.3 % (30.3-42.9) L D 08/07/19 05:13 MCV 92 fl (79-97) 08/07/19 05:13 MCH 29 pg (28-32) 08/07/19 05:13 MCHC 31 % (30-34) 08/07/19 05:13 RDW 21.1 % (13.2-15.2) H 08/07/19 05:13 Plt Count 156 K/mm3 (140-440) 08/07/19 05:13 Lymph % (Auto) 10.9 % (13.4-35.0) L 08/06/19 05:42 [place] % (Auto) 9.3 % (0.0-7.3) H 08/06/19 05:42 Eos % (Auto) 0.6 % (0.0-4.3) 08/06/19 05:42 Baso % (Auto) 0.4 % (0.0-1.8) 08/06/19 05:42 Lymph # 1.5 K/mm3 (1.2-5.4) 08/06/19 05:42 [place] # 1.3 K/mm3 (0.0-0.8) H 08/06/19 05:42 Eos # 0.1 K/mm3 (0.0-0.4) 08/06/19 05:42 Baso # 0.1 K/mm3 (0.0-0.1) 08/06/19 05:42 Seg Neutrophils % 78.8 % (40.0-70.0) H 08/06/19 05:42 Seg Neutrophils # 11.0 K/mm3 (1.8-7.7) H 08/06/19 05:42 Sodium 141 mmol/L (137-145) 08/07/19 05:13 Potassium 3.9 mmol/L (3.6-5.0) 08/07/19 05:13 Chloride 102.6 mmol/L (98-107) 08/07/19 05:13 Carbon Dioxide 21 mmol/L (22-30) L 08/07/19 05:13 Anion Gap 21 mmol/L 08/07/19 05:13 BUN 38 mg/dL (7-17) H 08/07/19 05:13 Creatinine 7.0 mg/dL (0.7-1.2) H 08/07/19 05:13 Estimated GFR 7 ml/min 08/07/19 05:13 BUN/Creatinine Ratio 5 % 08/07/19 05:13 Glucose 84 mg/dL (65-100) 08/07/19 05:13 Calcium 8.9 mg/dL (8.4-10.2) 08/07/19 05:13 Total Bilirubin 0.20 mg/dL (0.1-1.2) 08/05/19 18:51 AST 20 units/L (5-40) 08/05/19 18:51 ALT 5 units/L (7-56) L 08/05/19 18:51 Alkaline Phosphatase 62 units/L (35-129) 08/05/19 18:51 Total Creatine Kinase 25 units/L (30-135) L 08/06/19 05:42 CK-MB (CK-2) 3.4 ng/mL (0.0-4.0) 08/06/19 05:42 CK-MB (CK-2) Rel Index 13.6 (0-4) H 08/06/19 05:42 Troponin T 0.048 ng/mL (0.00-0.029) H 08/06/19 05:42 Total Protein 7.0 g/dL (6.3-8.2) 08/05/19 18:51 Albumin 3.3 g/dL (3.9-5) L 08/05/19 18:51 Albumin/Globulin Ratio 0.9 % 08/05/19 18:51 Triglycerides 204 mg/dL (2-149) H 08/06/19 01:08 Cholesterol 170 mg/dL (50-199) 08/06/19 01:08 LDL Cholesterol Direct 99 mg/dL (50-130) 08/06/19 01:08 HDL Cholesterol 33 mg/dL (40-59) L 08/06/19 01:08 Cholesterol/HDL Ratio 5.15 % 08/06/19 01:08 TSH 1.170 mlU/mL (0.270-4.200) 08/05/19 19:18 Hepatitis A IgM Ab Non-reactive (NonReactive) 08/06/19 15:04 Hep Bs Antigen Non-reactive (Negative) 08/06/19 15:04 Hep B Core IgM Ab Non-reactive (NonReactive) 08/06/19 15:04 Hepatitis C Antibody Non-reactive (NonReactive) 08/06/19 15:04 Active Medications - Current Medications Current Medications: Generic Name Dose Route Start Last Admin Trade Name Freq PRN Reason Stop Dose Admin Acetaminophen 650 mg 08/06/19 00:20 08/06/19 05:51 Tylenol PO 650 mg Q4H PRN Administration Pain MILD(1-3)/Fever >100.5/DRAKE Enoxaparin Sodium 30 mg 08/06/19 10:00 08/07/19 13:35 Enoxaparin SUB-Q Not Given QDAY [facility] Levofloxacin/Dextrose 250 mg in 50 mls @ 50 mls/hr 08/08/19 10:00 Levaquin 250mg/50ml IV Q48HR [facility] Protocol Midodrine 10 mg 08/06/19 16:00 08/07/19 17:19 Proamatine PO Not Given TID@0800,1200,1600 [facility] Ondansetron HCl 4 mg 08/06/19 00:20 08/06/19 09:23 Zofran IV 4 mg Q8H PRN Administration Nausea And Vomiting Sodium Chloride 10 ml 08/06/19 10:00 08/07/19 13:36 Sodium Chloride Flush Syringe 10 Ml IV 10 ml BID [facility] Administration Sodium Chloride 10 ml 08/06/19 00:20 08/06/19 05:40 Sodium Chloride Flush Syringe 10 Ml IV 10 ml PRN PRN Administration LINE FLUSH Nutrition/Malnutrition Assess - Dietary Evaluation Nutrition/Malnutrition Findings: Nutrition Notes Start: 08/07/19 13:51 Freq: Status: Active Protocol: Document 08/07/19 13:51 MOO (Rec: 08/07/19 14:06 MOO [id number]) Co-Sign 08/07/19 13:51 KH Nutrition Notes Need for 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 Weight Status Appropriate Subjective/Other Information RD screen for skin risk assessment per RN. Kale score was 14. Pt seemed slightly confused. Pt stated her appetite was fair. She stated that she has been nauseous. 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 Explained how Josep works and pt denied it. Burn Absent Trauma Absent GI Symptoms Nausea Current % PO Negligible Minimum of two criteria No physical signs of malnutrition #1 Nutrition Diagnosis Increased nutrient needs ( specify in comment below) Comments: Protein Etiology Wound healing As Evidenced by Signs and Symptoms Left buttock skin tear Is patient on ventilator? No Is Patient Ambulatory and/or Out of Bed No REE-(Bullock-St. Jeor-confined to bed) 1391.496 Kcal/Kg value to use for calculation 25 Approximate Energy Requirements Using 1563 kcal/Kg Calculation Used for Recommendations Kcal/kg Additional Notes Protein: 75g/kg (>1.2g/kg) Fluid: 1ml/kcal Nutrition Intervention Change Diet Order: Continue current Add Supplement/Snack (indicate name/kcal Nepro daily /protein ) Provides kCal: 425 Provides Protein (gm) 19 Goal #1 Meet at least 80% of energy and protein needs via PO and ONS intake Goal #2 Wound healing Anticipated Discharge Needs: Renal diet Follow-Up By: 08/12/19 Additional Comments F/U for ONS and PO intake
[2019-08-08 06:25] LABS: Hematocrit 26.3 % (30.3-42.9); Hemoglobin 8.2 gm/dl (10.1-14.3); Mean Corpuscular HGB Conc 31 % (30-34); Mean Corpuscular Volume 92 fl (79-97); Platelet Count 138 K/mm3 (140-440); Red Blood Count 2.86 M/mm3 (3.65-5.03)
[2019-08-08 06:31] LABS: Red Cell Distribution Width 20.8 % (13.2-15.2)
[2019-08-08 06:55] LABS: Calcium 9.3 mg/dL (8.4-10.2)
[2019-08-08 07:32] VITALS: BP 99/47
[2019-08-08] MEDS ORDERED: PROTAMINE SULFATE 50 MG/5 ML INJ ONE (08:03)
[2019-08-08] MEDS ORDERED: SODIUM CHLORIDE 0.9% 250ML 0 ML ONE (08:03)
[2019-08-08] MEDS ORDERED: HEPARIN 10,000 UNITS/10 ML VIAL ONE (08:03)
[2019-08-08] MEDS ORDERED: GELATIN SPONGE SIZE 100 TP ONE (08:04)
[2019-08-08] MEDS ORDERED: THROMBIN (RECOMBINANT) 5,000 UNIT VIAL TP ONE (08:04)
[2019-08-08] MEDS: MIDODRINE 5 MG TAB PO SCH ×2 (09:19→13:27)
[2019-08-08] MEDS: ENOXAPARIN 30 MG/0.3 ML INJ SUB-Q SCH (09:20)
--- NOTE | 2019-08-08 11:07 | Discharge Summary ---
Providers - Providers Date of Admission: 08/05/19 23:24 Date of discharge: 08/08/19 Attending physician: FRANCO SORTO 08/06/19 10:30 Consult to Physician [CONS] Routine Comment: Consulting Provider: NEREYDA GONZÁLES Physician Instructions: Reason For Exam: ESRD-patient known to him-Notified group today. 08/06/19 14:46 Consult to Physician [CONS] Routine Comment: Consulting Provider: MICHEAL JEAN BAPTISTE Physician Instructions: Reason For Exam: Hypotension, sepsis 08/06/19 15:04 Consult to Physician [CONS] Routine Comment: Consulting Provider: MELINDA VILLANUEVA Physician Instructions: Reason For Exam: PERM CATH AND AV GRAFT PLACEMENT Primary care physician: PRESALES SENIOR SPECIALIST Hospitalization Condition: Serious Pertinent studies: CXR Hospital course: 64 y/o female with ESRD on HD, hypertension and schizophrenia admitted on due to a malfunctional HD access. She has a perm cath and was unable to dialyze. She was sent to ER for further Mx. vascular consulted and her permcath was exchanged. She was planned for AV fistulla placement before discharge. On the day of procedure patient declined the procedure. Her BP was low on admission required pressor, her Cx workup was negative. She was then discharged back to SNF in stable condition. Discharge diagnosis: Malfunctional permacath, s/pPermcath exchange - planned for AV fistula placement today but she refused before the procedure- outpt f/u with vascular Hypotensive, ruled out sepsis, blood cx negative - s/p levophed, resolved, off abx per ID End-stage renal disease on dialysis h/o Bipolar disorder and Schizophrenia - outpt f/u Disposition: DC/[place]-03 SNF [facility] CERT Time spent for discharge: 34 minutes Core Measure Documentation - Palliative Care Palliative Care/ Comfort Measures: Not Applicable - Core Measures Any of the following diagnoses?: none Exam - Physical Exam Narrative exam: Gen: Not in acute distress, lying in bed, HEENT: Normocephalic, atraumatic Neck: supple, no JVD. RIJ Permcath Heart: S1 and S2 reg, no murmurs, rubs or gallop Lungs: Clear to auscultation bilaterally, Abd: soft, non tender, non distended, normal BS, Ext: No edema, no clubbing, no cyanosis Neuro: Awake, alert, oriented X 3, no focal neurological signs - Constitutional Vitals: Temp Pulse Resp BP Pulse Ox 98.3 F 72 18 99/47 95 08/08/19 07:29 08/08/19 07:29 08/08/19 08:50 08/08/19 07:29 08/08/19 10:00 Plan Activity: advance as tolerated Weight Bearing Status: Non-Weight Bearing Diet: renal Additional Instructions: f/u at [facility] in one week Follow up with: PRIMARY CAREMD [Primary Care Provider] - 7 Days
--- NOTE | 2019-08-08 14:17 | Progress Note ---
Subjective Date of service: 08/08/19 Interval history: s/p permcath exchange no issues on dialysis attempted to take patient for graft insertion today but she refused surgery today and is asking to be taken to [place] concerned patient having psychotic break due to being off meds patient likely to benefit from psych eval and to re-evaluate for graft placement Objective - Constitutional Vitals: Vital Signs - 12hr 08/08/19 08/08/19 08/08/19 03:39 07:29 08:50 Temperature 98.0 F 98.3 F Pulse Rate 76 72 Respiratory 18 18 18 Rate Blood Pressure 123/39 99/47 O2 Sat by Pulse 97 100 97 Oximetry 08/08/19 10:00 Temperature Pulse Rate 71 Respiratory Rate Blood Pressure O2 Sat by Pulse 95 Oximetry - Labs CBC & Chem 7: 08/08/19 06:04 08/08/19 06:04 Labs: Abnormal lab results 08/08/19 08/08/19 Range/Units 06:04 06:04 WBC 3.7 L (4.5-11.0) K/mm3 RBC 2.86 L (3.65-5.03) M/mm3 Hgb 8.2 L (10.1-14.3) gm/dl Hct 26.3 L (30.3-42.9) % RDW 20.8 H (13.2-15.2) % Plt Count 138 L (140-440) K/mm3 Creatinine 4.6 H (0.7-1.2) mg/dL Medications & Allergies - Medications Allergies/Adverse Reactions: Allergies Penicillins Allergy (Verified 02/06/17 13:29) Rash corn Adverse Reaction (Verified 05/14/19 15:01) Unknown Home Medications: Home Medications Medication Instructions Recorded Confirmed Last Taken Type clonazePAM [KlonoPIN] 0.5 mg PO QHS #14 tablet 05/22/19 08/06/19 Unknown Rx Divalproex ER [Depakote ER] 1,500 mg PO HS 05/29/19 08/06/19 Unknown History Divalproex ER [Depakote ER] 500 mg PO QAM 05/29/19 08/06/19 Unknown History Acetaminophen [Acetaminophen TAB] 650 mg PO Q4H PRN tablet 06/03/19 08/06/19 Unknown Rx Capsaicin 0.075% [Zostrix Hp 1 applic TP TID tube 06/03/19 08/07/19 Unknown Rx 0.075%] QUEtiapine [SEROquel] 200 mg PO QHS tablet 06/03/19 08/07/19 Unknown Rx Midodrine [Proamatine] 10 mg PO TID@0800,1200,1600 #30 08/08/19 Unknown Rx tablet Active Medications: Generic Name Dose Route Start Last Admin Trade Name Freq PRN Reason Stop Dose Admin Acetaminophen 650 mg 08/06/19 00:20 08/06/19 05:51 Tylenol PO 650 mg Q4H PRN Administration Pain MILD(1-3)/Fever >100.5/DRAKE Enoxaparin Sodium 30 mg 08/06/19 10:00 08/08/19 09:20 Enoxaparin SUB-Q Not Given QDAY [facility] Midodrine 10 mg 08/06/19 16:00 08/08/19 13:27 Proamatine PO Not Given TID@0800,1200,1600 [facility] Ondansetron HCl 4 mg 08/06/19 00:20 08/06/19 09:23 Zofran IV 4 mg Q8H PRN Administration Nausea And Vomiting Sodium Chloride 10 ml 08/06/19 10:00 08/08/19 13:27 Sodium Chloride Flush Syringe 10 Ml IV Not Given BID [facility]NOR Sodium Chloride 10 ml 08/06/19 00:20 08/06/19 05:40 Sodium Chloride Flush Syringe 10 Ml IV 10 ml PRN PRN Administration LINE FLUSH
--- NOTE | 2019-08-08 15:30 | Progress Note ---
Assessment and Plan - Patient Problems (1) ESRD (end stage renal disease) Current Visit: Yes Status: Acute Plan to address problem: ESRD on HD continue HDTTS. Has malfunctioning PermCath now s/p perm cath exchange Appreciate vascular surgery also requires a graft Patient refusing all procedures has not received psych meds during his hospitalization (2) Hypotension Current Visit: Yes Status: Acute Qualifiers: Hypotension type: unspecified hypotension type Qualified Code(s): I95.9 - Hypotension, unspecified Plan to address problem: Hypotension off pressors continue midodrine (3) Anemia in chronic kidney disease Current Visit: No Status: Acute Plan to address problem: Mild anemia Hemoglobin 11 g/dl Secondary to chronic kidney disease Monitor CBC (4) Metabolic acidosis Current Visit: No Status: Acute Plan to address problem: Metabolic acidosis Secondary to chronic kidney disease Subjective Interval history: 64-year-old with medical history significant for hypertension, end-stage renal disease admitted with complaint of malfunctioning PermCath. Was started on norepinephrine since due to hypotension on arrival she denies any shortness of breath denies any orthopnea PND denies any fevers chills denies any nausea or vomiting denies any abdominal pain she has not been able to have dialysis Patient seen today Unfortunately she did not receive psychotropic medications during this hospitalization and this has affected her ability to make any reasonable decision Discussed with hospital physician patient psychotropic medications need to be started Per hospital team she is being discharged today Objective - Vital Signs Vital signs: Vital Signs - 12hr 08/08/19 08/08/19 08/08/19 03:39 07:29 08:50 Temperature 98.0 F 98.3 F Pulse Rate 76 72 Respiratory 18 18 18 Rate Blood Pressure 123/39 99/47 O2 Sat by Pulse 97 100 97 Oximetry 08/08/19 10:00 Temperature Pulse Rate 71 Respiratory Rate Blood Pressure O2 Sat by Pulse 95 Oximetry - General Appearance General appearance: well-developed, well-nourished EENT: ATNC, PERRL Neck: no JVD Respiratory: Present: Clear to Ascultation Cardiology: regular, S1S2 Gastrointestinal: normal, normoactive bowel sounds Integumentary: no rash Neurologic: no focal deficit, CN 3-12 intact Psychiatric: mood/affect appropriate - Lab 08/08/19 06:04 08/08/19 06:04 Most recent lab results Calcium 9.3 mg/dL (8.4-10.2) 08/08/19 06:04 - Imaging Chest x-ray: image reviewed (chest x-ray reviewed without edema) Medications & Allergies - Medications Allergies/Adverse Reactions: Allergies Penicillins Allergy (Verified 02/06/17 13:29) Rash corn Adverse Reaction (Verified 05/14/19 15:01) Unknown Home Medications: Home Medications Medication Instructions Recorded Confirmed Last Taken Type clonazePAM [KlonoPIN] 0.5 mg PO QHS #14 tablet 05/22/19 08/06/19 Unknown Rx Divalproex ER [Depakote ER] 1,500 mg PO HS 05/29/19 08/06/19 Unknown History Divalproex ER [Depakote ER] 500 mg PO QAM 05/29/19 08/06/19 Unknown History Acetaminophen [Acetaminophen TAB] 650 mg PO Q4H PRN tablet 06/03/19 08/06/19 Unknown Rx Capsaicin 0.075% [Zostrix Hp 1 applic TP TID tube 06/03/19 08/07/19 Unknown Rx 0.075%] QUEtiapine [SEROquel] 200 mg PO QHS tablet 06/03/19 08/07/19 Unknown Rx Midodrine [Proamatine] 10 mg PO TID@0800,1200,1600 #30 08/08/19 Unknown Rx tablet Active Medications: Generic Name Dose Route Start Last Admin Trade Name Freq PRN Reason Stop Dose Admin Acetaminophen 650 mg 08/06/19 00:20 08/06/19 05:51 Tylenol PO 650 mg Q4H PRN Administration Pain MILD(1-3)/Fever >100.5/DRAKE Enoxaparin Sodium 30 mg 08/06/19 10:00 08/08/19 09:20 Enoxaparin SUB-Q Not Given QDAY [facility] Midodrine 10 mg 08/06/19 16:00 08/08/19 13:27 Proamatine PO Not Given TID@0800,1200,1600 [facility] Ondansetron HCl 4 mg 08/06/19 00:20 08/06/19 09:23 Zofran IV 4 mg Q8H PRN Administration Nausea And Vomiting Sodium Chloride 10 ml 08/06/19 10:00 08/08/19 13:27 Sodium Chloride Flush Syringe 10 Ml IV Not Given BID CONNOR Sodium Chloride 10 ml 08/06/19 00:20 08/06/19 05:40 Sodium Chloride Flush Syringe 10 Ml IV 10 ml PRN PRN Administration LINE FLUSH
== END 2019-08-08 15:45 | DRG 314 ==
LOC: ED 17:15 → CC1 23:24 → 4A 08-06 20:40
PROVIDERS: ADMIT Internal Medicine; ATTEND Internal Medicine
PROC: 06HY33Z Insertion of Infusion Device into Lower Vein, Percutaneous Approach (ICD-10-PCS; 2019-08-05)
PROC: B54BZZA Ultrasonography of Right Lower Extremity Veins, Guidance (ICD-10-PCS; 2019-08-05)
PROC: 5A1D70Z Performance of Urinary Filtration, Intermittent, Less than 6 Hours Per Day (ICD-10-PCS; 2019-08-06)
PROC: 0JPT3XZ Removal of Tunneled Vascular Access Device from Trunk Subcutaneous Tissue and Fascia, Percutaneous Approach (ICD-10-PCS; principal; 2019-08-07)
PROC: 0JH63XZ Insertion of Tunneled Vascular Access Device into Chest Subcutaneous Tissue and Fascia, Percutaneous Approach (ICD-10-PCS; 2019-08-07)
PROC: 06PY33Z Removal of Infusion Device from Lower Vein, Percutaneous Approach (ICD-10-PCS; 2019-08-07)
PROC: 02HV33Z Insertion of Infusion Device into Superior Vena Cava, Percutaneous Approach (ICD-10-PCS; 2019-08-07)
PROC: 5A1D70Z Performance of Urinary Filtration, Intermittent, Less than 6 Hours Per Day (ICD-10-PCS; 2019-08-07)
DX: T82.41XA Breakdown (mechanical) of vascular dialysis catheter, initial encounter (principal); N18.6 End stage renal disease; E87.2 Acidosis; R65.10 Systemic inflammatory response syndrome (SIRS) of non-infectious origin without acute organ dysfunction; N25.81 Secondary hyperparathyroidism of renal origin; I95.9 Hypotension, unspecified; F31.9 Bipolar disorder, unspecified; Y83.8 Other surgical procedures as the cause of abnormal reaction of the patient, or of later complication, without mention of misadventure at the time of the procedure; D63.1 Anemia in chronic kidney disease; F20.9 Schizophrenia, unspecified; D64.9 Anemia, unspecified; F41.9 Anxiety disorder, unspecified; Z90.710 Acquired absence of both cervix and uterus; Z82.49 Family history of ischemic heart disease and other diseases of the circulatory system; Z83.3 Family history of diabetes mellitus; Z88.0 Allergy status to penicillin; Y92.128 Other place in nursing home as the place of occurrence of the external cause
CPT/HCPCS: 36415; 36581; 37248; 71045; 77001; 80048; 80053; 80061; 80074; 82550; 82553; 82962; 84443; 84484; 85025; 85027; 87040; 94760; G0378; A4649; C1725; C1750; J1644; J1650; J1956; J2250; J2405; J2720; J2997; J3010; J3370; J7040; J7050; Q9967

== ENCOUNTER 2019-09-07 12:16 | Inpatient (IN) | payer MEDICARE ==
[2019-09-07] MEDS ORDERED: SODIUM CHLORIDE 0.9% 1000 ML 1,000 ML ONE (12:32)
[2019-09-07] MEDS ORDERED: SODIUM CHLORIDE 0.9% 1000 ML IV SOLN IV ONE (13:02)
[2019-09-07] MEDS ORDERED: VANCOMYCIN 1,250 MG in SODIUM CHLORIDE 0.9% 500 ML 500 ML IV ONE (13:02)
[2019-09-07] MEDS ORDERED: ACETAMINOPHEN 650 MG RECT SUPP PR ONE (13:04)
[2019-09-07] MEDS ORDERED: ACETAMINOPHEN 325 MG RECT SUPP PR ONE (13:19)
[2019-09-07] MEDS ORDERED: VANCOMYCIN 1,250 MG in SODIUM CHLORIDE 0.9% 250ML 250 ML IV ONE (13:30)
--- NOTE | 2019-09-07 13:44 | XRay Report ---
CHEST 1 VIEW INDICATION: fever. COMPARISON: 08/05/2019. FINDINGS: Support devices: Right IJ dialysis catheter unchanged. Heart: Within normal limits. Lungs/Pleura: Linear density left base is likely atelectasis. Additional findings: None. IMPRESSION: Suspect left basilar atelectasis. Signer Name: Vitaliy Lozoya MD Signed: 09/07/2019 1:40 PM Workstation Name: [id number]
--- NOTE | 2019-09-07 13:45 | Emergency Department Report ---
ED Fever HPI - General Chief Complaint: Fever Stated Complaint: SEPTIC Time Seen by Provider: 09/07/19 12:32 Source: EMS, snf records, old records Exam Limitations: clinical condition, physical impairment - History of Present Illness Initial Comments: 64-year-old female with multiple chronic medical conditions including schizophrenia, bipolar, end-stage renal disease on dialysis Sunday, , Sunday, sacral decubitus ulcer, hypertension, drug induced dyskinesia, dystonia, seizures, anemia, anxiety,and hyperparathyroidism disorder presents with fever and hypotension from the snf. long-term reports an temperature of 106.7, BP of 70/50, respiratory rate 20, heart rate 98. Patient is unable to provide any detailed history of present illness able to follow some basic commands and answer some yes and no questions. Patient also name is otherwise not oriented to place or year. No pain reported. EMS EKG reveals a sinus tach at 140 rate. As per medical record review patient was recently admitted here in July for Sirs/sepsis. long-term reports that patient recently had a right sided chest wall dialysis catheter replaced. Market Research Consultant: Dr. Love ED Review of Systems ROS: Stated complaint: SEPTIC Other details as noted in HPI Comment: Unobtainable due to pts medical conditions ED Past Medical Hx - Past Medical History Previous Medical History?: Yes Hx Hypertension: Yes Hx Renal Disease: Yes Hx Arthritis: Yes Hx Seizures: Yes (DAILY MEDS) Hx Psychiatric Treatment: Yes (bipolar,schizophrenia,severe anxiety) Hx Dementia: Yes Hx HIV: No Additional medical history: HD - Surgical History Additional Surgical History: hysterectomy, right chest wall permacath - Social History Smoking Status: Unknown if ever smoked - Medications Home Medications: Home Medications Medication Instructions Recorded Confirmed Last Taken Type clonazePAM [KlonoPIN] 0.5 mg PO QHS #14 tablet 05/22/19 09/07/19 Unknown Rx Divalproex ER [Depakote ER] 1,500 mg PO HS 05/29/19 09/07/19 Unknown History Divalproex ER [Depakote ER] 500 mg PO QAM 05/29/19 09/07/19 Unknown History Acetaminophen [Acetaminophen TAB] 650 mg PO Q4H PRN tablet 06/03/19 09/07/19 Unknown Rx Calcium Acetate [Phoslo] 667 mg PO TID 08/20/19 09/07/19 Unknown History LORazepam [Ativan] 1 mg PO BID 08/20/19 09/07/19 Unknown History Memantine Xr [Namenda Xr] 5 mg PO DAILY 08/20/19 09/07/19 Unknown History Midodrine [Proamatine] 10 mg PO TID 08/20/19 09/07/19 Unknown History QUEtiapine [SEROquel] 400 mg PO QHS 08/20/19 09/07/19 Unknown History ED Physical Exam - General Limitations: Altered Mental Status - Other Other exam information: General: No acute distress Head: Atraumatic Eyes: normal appearance ENT: Dry mucous membranes Neck: Normal appearance, no midline tenderness Chest: Clear to auscultation bilaterally CV: Tachycardic regular rhythm Abdomen: Soft, normal bowel sounds, nontender, nondistended, no rebound or guarding Back: Normal inspection Extremity: Normal inspection infection, full range of motion Neuro: Lethargic but easily arousable oriented to self only, 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 Sensation grossly intact Psych: Appropriate behavior Skin: Sacral decubitus ulcer without obvious signs of infection ED Course Vital Signs 09/07/19 09/07/19 09/07/19 12:24 12:30 12:33 Temperature 101.9 F H Pulse Rate 116 H 113 H Respiratory 46 H 32 H Rate Blood Pressure 74/29 74/29 Blood Pressure [Right] O2 Sat by Pulse 92 99 99 Oximetry 09/07/19 09/07/19 09/07/19 12:46 13:00 13:16 Temperature Pulse Rate 115 H 118 H 109 H Respiratory 31 H 11 L 12 Rate Blood Pressure 74/29 74/41 74/41 Blood Pressure [Right] O2 Sat by Pulse 98 95 100 Oximetry 09/07/19 09/07/19 09/07/19 13:30 14:23 15:53 Temperature 99.1 F Pulse Rate 113 H 104 H 102 H Respiratory 11 L 26 H 15 Rate Blood Pressure 86/38 Blood Pressure 99/40 98/45 [Right] O2 Sat by Pulse 100 98 100 Oximetry - Consultations Consultation #1: 09/07/19 16:35 Dr Pino thurman informed, consult ordered - Central Line Placement Right Femoral Consent Obtained: verbal consent Time Out Performed: Yes Patient Placed on Monitor/Pulse Ox: Yes MD Prep: mask, gown, gloves, other Central Line Prep: Chlorhexidine scrub Local Anesthesia Used: Lidocaine 1% Amount of Anesthesia Used (mls): 5 Ultrasound Used for Placement: No Central Line Lumen Inserted: triple Bloods Obtained for Lab: Yes Central Line Position: good blood return, sutured in place with nyl Dressing Applied: Tegaderm Patient Tolerated Procedure: well Complications: none ED Medical Decision Making - Lab Data Result diagrams: 09/07/19 15:38 09/07/19 12:45 Lab Results 09/07/19 09/07/19 09/07/19 Range/Units 12:45 12:45 12:45 WBC (4.5-11.0) K/mm3 RBC (3.65-5.03) M/mm3 Hgb (10.1-14.3) gm/dl Hct (30.3-42.9) % MCV (79-97) fl MCH (28-32) pg MCHC (30-34) % RDW (13.2-15.2) % Plt Count (140-440) K/mm3 Lymph % (Auto) (13.4-35.0) % [place] % (Auto) (0.0-7.3) % Eos % (Auto) (0.0-4.3) % Baso % (Auto) (0.0-1.8) % Lymph # (1.2-5.4) K/mm3 [place] # (0.0-0.8) K/mm3 Eos # (0.0-0.4) K/mm3 Baso # (0.0-0.1) K/mm3 Seg Neutrophils % (40.0-70.0) % Seg Neutrophils # (1.8-7.7) K/mm3 APTT 28.0 (24.2-36.6) Sec. VBG pH (7.320-7.420) Sodium 139 (137-145) mmol/L Potassium 3.3 L (3.6-5.0) mmol/L Chloride 102.0 (98-107) mmol/L Carbon Dioxide 18 L (22-30) mmol/L Anion Gap 22 mmol/L BUN 25 H (7-17) mg/dL Creatinine 5.6 H (0.7-1.2) mg/dL Estimated GFR 9 ml/min BUN/Creatinine Ratio 4 % Glucose 129 H (65-100) mg/dL Lactic Acid 2.70 H* (0.7-2.0) mmol/L Calcium 8.8 (8.4-10.2) mg/dL Total Bilirubin 0.30 (0.1-1.2) mg/dL AST 27 (5-40) units/L ALT 16 (7-56) units/L Alkaline Phosphatase 90 (35-129) units/L Total Protein 5.1 L (6.3-8.2) g/dL Albumin 2.2 L (3.9-5) g/dL Albumin/Globulin Ratio 0.8 % Urine Color (Yellow) Urine Turbidity (Clear) Urine pH (5.0-7.0) Ur Specific [place] (1.003-1.030) Urine Protein (Negative) mg/dL Urine Glucose (UA) (Negative) mg/dL Urine Ketones (Negative) mg/dL Urine Blood (Negative) Urine Nitrite (Negative) Urine Bilirubin (Negative) Urine Urobilinogen (<2.0) mg/dL Ur Leukocyte Esterase (Negative) Urine WBC (Auto) (0.0-6.0) /HPF Urine RBC (Auto) (0.0-6.0) /HPF U Epithel Cells (Auto) (0-13.0) /HPF Urine Bacteria (Auto) (Negative) /HPF Urine WBC Clumps /HPF Urine Mucus /HPF 09/07/19 09/07/19 09/07/19 Range/Units 12:45 13:45 15:38 WBC 13.2 H (4.5-11.0) K/mm3 RBC 3.07 L (3.65-5.03) M/mm3 Hgb 8.6 L (10.1-14.3) gm/dl Hct 28.8 L (30.3-42.9) % MCV 94 (79-97) fl MCH 28 (28-32) pg MCHC 30 (30-34) % RDW 20.4 H (13.2-15.2) % Plt Count 219 (140-440) K/mm3 Lymph % (Auto) 3.3 L (13.4-35.0) % [place] % (Auto) 15.6 H (0.0-7.3) % Eos % (Auto) 0.0 (0.0-4.3) % Baso % (Auto) 0.3 (0.0-1.8) % Lymph # 0.4 L (1.2-5.4) K/mm3 [place] # 2.1 H (0.0-0.8) K/mm3 Eos # 0.0 (0.0-0.4) K/mm3 Baso # 0.0 (0.0-0.1) K/mm3 Seg Neutrophils % 80.8 H (40.0-70.0) % Seg Neutrophils # 10.7 H (1.8-7.7) K/mm3 APTT (24.2-36.6) Sec. VBG pH 7.333 (7.320-7.420) Sodium (137-145) mmol/L Potassium (3.6-5.0) mmol/L Chloride (98-107) mmol/L Carbon Dioxide (22-30) mmol/L Anion Gap mmol/L BUN (7-17) mg/dL Creatinine (0.7-1.2) mg/dL Estimated GFR ml/min BUN/Creatinine Ratio % Glucose (65-100) mg/dL Lactic Acid (0.7-2.0) mmol/L Calcium (8.4-10.2) mg/dL Total Bilirubin (0.1-1.2) mg/dL AST (5-40) units/L ALT (7-56) units/L Alkaline Phosphatase (35-129) units/L Total Protein (6.3-8.2) g/dL Albumin (3.9-5) g/dL Albumin/Globulin Ratio % Urine Color [place] (Yellow) Urine Turbidity Cloudy (Clear) Urine pH 5.0 (5.0-7.0) Ur Specific [place] 1.019 (1.003-1.030) Urine Protein >500 (Negative) mg/dL Urine Glucose (UA) Neg (Negative) mg/dL Urine Ketones Tr (Negative) mg/dL Urine Blood Sm (Negative) Urine Nitrite Neg (Negative) Urine Bilirubin Neg (Negative) Urine Urobilinogen 2.0 (<2.0) mg/dL Ur Leukocyte Esterase Mod (Negative) Urine WBC (Auto) > 182.0 H (0.0-6.0) /HPF Urine RBC (Auto) 10.0 (0.0-6.0) /HPF U Epithel Cells (Auto) 6.0 (0-13.0) /HPF Urine Bacteria (Auto) 1+ (Negative) /HPF Urine WBC Clumps 3+ /HPF Urine Mucus Few /HPF - EKG Data -: EKG Interpreted by Me EKG shows normal: sinus rhythm, ST-T waves (no stemi) Rate: tachycardia (111) - Radiology Data Radiology results: report reviewed (cxr: left basilar atelectasis) - Medical Decision Making Pt provided 30 mL per KG bolus of normal saline but bp remained labile with sbp fluctuating between the high 70s and 90s. Patient treated empirically with vancomycin and Aztreonam. Central line placed. Levophed ordered for a map greater than 65. HR has improved greatly with IVF and fever reduction. Additional 500ml of NS ordered. Lactic acid is improving with resuscitation - Differential Diagnosis uti, pneumonia, sepsis, Critical Care Time: Yes Critical care time in (mins) excluding proc time.: 35 Critical care attestation.: If time is entered above; I have spent that time in minutes in the direct care of this critically ill patient, excluding procedure time. ED Disposition Clinical Impression: Septic shock, ESRD (end stage renal disease) on dialysis, UTI (urinary tract infection), Sacral decubitus ulcer Disposition: 09 OP ADMIT IP TO THIS HOSP Is pt being admited?: Yes Condition: Stable Referrals: PRIMARY CARE, [Primary Care Provider] - 3-5 Days Time of Disposition: 17:08
[2019-09-07] MEDS ORDERED: AZTREONAM/NS 1 GM/50 ML 1 GM/50 ML VIAL IV ONE (14:00)
[2019-09-07] MEDS ORDERED: AZTREONAM/NS 1 GM/50 ML 1 GM/50 ML VIAL IV SCH (14:00)
[2019-09-07] MEDS ORDERED: VANCOMYCIN PHARMACY TO DOSE IV SCH (14:00)
[2019-09-07 14:15] LABS: Albumin 2.2 g/dL (3.9-5); Calcium 8.8 mg/dL (8.4-10.2)
[2019-09-07 14:21] LABS: Bacteria,Urine 1+ /HPF (Negative); Bilirubin,Urine NEG (Negative); Blood,Urine SM (Negative); Color,Urine Amber (Yellow); Mucus,Urine FEW /HPF
[2019-09-07 14:22] LABS: Protein,Urine >500 mg/dL (Negative); WBC,Urine > 182.0 /HPF (0.0-6.0)
[2019-09-07] MEDS ORDERED: SODIUM CHLORIDE 0.9% 500 ML 500 ML IV ONE (16:24)
[2019-09-07 16:25] LABS: Basophils % (Auto) 0.3 % (0.0-1.8); Lymphocytes # (Auto) 0.4 K/mm3 (1.2-5.4); Lymphocytes % (Auto) 3.3 % (13.4-35.0); Mean Corpuscular HGB Conc 30 % (30-34); Mean Corpuscular Volume 94 fl (79-97); Monocytes # (Auto) 2.1 K/mm3 (0.0-0.8); Monocytes % (Auto) 15.6 % (0.0-7.3); Platelet Count 219 K/mm3 (140-440); Red Blood Count 3.07 M/mm3 (3.65-5.03)
[2019-09-07 16:26] LABS: Hematocrit 28.8 % (30.3-42.9); Hemoglobin 8.6 gm/dl (10.1-14.3); Red Cell Distribution Width 20.4 % (13.2-15.2)
[2019-09-07] MEDS: NORepinephrine/NS 4 MG-250 ML 4 MG/250 ML BAG IV SCH (17:20)
--- NOTE | 2019-09-07 18:20 | History and Physical Report ---
History of Present Illness Date of examination: 09/07/19 Date of admission: 09/07/19 17:09 Chief complaint: Fever and low blood pressure of 1 day duration History of present illness: 64-year-old female with multiple medical problems presents with high temperature of 101.9 and low blood pressure from the detention. Patient also has altered mental status. Lethargic. Patient has end-stage renal disease with dialysis on Sunday, hypertension, drug-induced dyskinesia and dystonia, seizures, anxiety and hyperparathyroidism. In the emergency room patient blood pressure was ranging from 70/50 to 90/60. Central line was placed for possible use of pressors. Source of infection is urine which shows WBCs more than 182. Patient has a heart rate of 140. Patient also has tremors in both hands at rest Medical medical records reviewed. Patient was recently admitted for sepsis and discharged in July 2019. Patient is alert and responsive but lethargic Loan Officer is Dr. Love Past Medical History Previous Medical History?: Yes Hypertension: Yes Renal Disease: Yes Arthritis: Yes Seizures: Yes (DAILY MEDS) Psychiatric Treatment: Yes (bipolar,schizophrenia,severe anxiety) Dementia: Yes Additional medical history: HD Surgical History Additional Surgical History: hysterectomy, right chest wall permacath Social History Smoking Status: Unknown if ever smoked Family History Htn Medications Home Medications: Home Medications Medication Instructions Recorded Confirmed Last Taken Type clonazePAM [KlonoPIN] 0.5 mg PO QHS #14 tablet 05/22/19 09/07/19 Unknown Rx Divalproex ER [Depakote ER] 1,500 mg PO HS 05/29/19 09/07/19 Unknown History Divalproex ER [Depakote ER] 500 mg PO QAM 05/29/19 09/07/19 Unknown History Acetaminophen [Acetaminophen TAB] 650 mg PO Q4H PRN tablet 06/03/19 09/07/19 Unknown Rx Calcium Acetate [Phoslo] 667 mg PO TID 08/20/19 09/07/19 Unknown History LORazepam [Ativan] 1 mg PO BID 08/20/19 09/07/19 Unknown History Memantine Xr [Namenda Xr] 5 mg PO DAILY 08/20/19 09/07/19 Unknown History Midodrine [Proamatine] 10 mg PO TID 08/20/19 09/07/19 Unknown History QUEtiapine [SEROquel] 400 mg PO QHS 08/20/19 09/07/19 Unknown History Review of Systems ROS: Stated complaint: SEPTIC Other details as noted in HPI Comment: Unobtainable due to pts medical conditions Medications and Allergies Allergies Allergy/AdvReac Type Severity Reaction Status Date / Time Penicillins Allergy Rash Verified 02/06/17 13:29 corn AdvReac Unknown Verified 05/14/19 15:01 Home Medications Medication Instructions Recorded Confirmed Last Taken Type clonazePAM [KlonoPIN] 0.5 mg PO QHS #14 tablet 05/22/19 09/07/19 Unknown Rx Divalproex ER [Depakote ER] 1,500 mg PO HS 05/29/19 09/07/19 Unknown History Divalproex ER [Depakote ER] 500 mg PO QAM 05/29/19 09/07/19 Unknown History Acetaminophen [Acetaminophen TAB] 650 mg PO Q4H PRN tablet 06/03/19 09/07/19 Unknown Rx Calcium Acetate [Phoslo] 667 mg PO TID 08/20/19 09/07/19 Unknown History LORazepam [Ativan] 1 mg PO BID 08/20/19 09/07/19 Unknown History Memantine Xr [Namenda Xr] 5 mg PO DAILY 08/20/19 09/07/19 Unknown History Midodrine [Proamatine] 10 mg PO TID 08/20/19 09/07/19 Unknown History QUEtiapine [SEROquel] 400 mg PO QHS 08/20/19 09/07/19 Unknown History Active Meds: Active Medications Aztreonam 500 mg/ Sodium (Chloride) 50 mls @ 50 mls/30 min IV Q8H [facility] Norepinephrine (Levophed Drip 4 Mg/Ns 250 Ml) 4 mg in 250 mls @ 7.5 mls/hr IV TITR CONNOR; Protocol Exam - Constitutional Vitals: Temp Pulse Resp BP Pulse Ox 99.1 F 96 H 14 78/41 96 09/07/19 15:53 09/07/19 17:00 09/07/19 17:00 09/07/19 17:00 09/07/19 17:00 General appearance: Present: no acute distress, well-nourished - EENT Eyes: Present: PERRL ENT: hearing intact, clear oral mucosa - Neck Neck: Present: supple, normal ROM - Respiratory Respiratory effort: normal Respiratory: bilateral: CTA - Cardiovascular Heart rate: 70 Rhythm: regular Heart Sounds: Present: S1 & S2. Absent: rub, click - Extremities Extremities: no ischemia, pulses intact, pulses symmetrical, No edema, abnormal (Decub ulcer) Peripheral Pulses: within normal limits - Abdominal General gastrointestinal: Present: soft, non-tender, non-distended, normal bowel sounds Female genitourinary: Present: normal - Integumentary Integumentary: Present: clear, warm, dry - Musculoskeletal Musculoskeletal: strength equal bilaterally, generalized weakness - Psychiatric Psychiatric: appropriate mood/affect, intact judgment & insight - Neurologic Neurologic: CNII-XII intact, moves all extremities - Allied Health Allied health notes reviewed: nursing, case management Results - Labs CBC & Chem 7: 09/08/19 04:00 09/08/19 04:00 Labs: Laboratory Last Values WBC 13.2 K/mm3 (4.5-11.0) H 09/07/19 15:38 RBC 3.07 M/mm3 (3.65-5.03) L 09/07/19 15:38 Hgb 8.6 gm/dl (10.1-14.3) L 09/07/19 15:38 Hct 28.8 % (30.3-42.9) L 09/07/19 15:38 MCV 94 fl (79-97) 09/07/19 15:38 MCH 28 pg (28-32) 09/07/19 15:38 MCHC 30 % (30-34) 09/07/19 15:38 RDW 20.4 % (13.2-15.2) H 09/07/19 15:38 Plt Count 219 K/mm3 (140-440) 09/07/19 15:38 Lymph % (Auto) 3.3 % (13.4-35.0) L 09/07/19 15:38 [place] % (Auto) 15.6 % (0.0-7.3) H 09/07/19 15:38 Eos % (Auto) 0.0 % (0.0-4.3) 09/07/19 15:38 Baso % (Auto) 0.3 % (0.0-1.8) 09/07/19 15:38 Lymph # 0.4 K/mm3 (1.2-5.4) L 09/07/19 15:38 [place] # 2.1 K/mm3 (0.0-0.8) H 09/07/19 15:38 Eos # 0.0 K/mm3 (0.0-0.4) 09/07/19 15:38 Baso # 0.0 K/mm3 (0.0-0.1) 09/07/19 15:38 Seg Neutrophils % 80.8 % (40.0-70.0) H 09/07/19 15:38 Seg Neutrophils # 10.7 K/mm3 (1.8-7.7) H 09/07/19 15:38 APTT 28.0 Sec. (24.2-36.6) 09/07/19 12:45 VBG pH 7.333 (7.320-7.420) 09/07/19 12:45 Sodium 139 mmol/L (137-145) 09/07/19 12:45 Potassium 3.3 mmol/L (3.6-5.0) L 09/07/19 12:45 Chloride 102.0 mmol/L (98-107) 09/07/19 12:45 Carbon Dioxide 18 mmol/L (22-30) L 09/07/19 12:45 Anion Gap 22 mmol/L 09/07/19 12:45 BUN 25 mg/dL (7-17) H 09/07/19 12:45 Creatinine 5.6 mg/dL (0.7-1.2) H 09/07/19 12:45 Estimated GFR 9 ml/min 09/07/19 12:45 BUN/Creatinine Ratio 4 % 09/07/19 12:45 Glucose 129 mg/dL (65-100) H 09/07/19 12:45 Lactic Acid 1.30 mmol/L (0.7-2.0) 09/07/19 17:03 Calcium 8.8 mg/dL (8.4-10.2) 09/07/19 12:45 Total Bilirubin 0.30 mg/dL (0.1-1.2) 09/07/19 12:45 AST 27 units/L (5-40) 09/07/19 12:45 ALT 16 units/L (7-56) 09/07/19 12:45 Alkaline Phosphatase 90 units/L (35-129) 09/07/19 12:45 Total Protein 5.1 g/dL (6.3-8.2) L 09/07/19 12:45 Albumin 2.2 g/dL (3.9-5) L 09/07/19 12:45 Albumin/Globulin Ratio 0.8 % 09/07/19 12:45 Urine Color Sarah (Yellow) 09/07/19 13:45 Urine Turbidity Cloudy (Clear) 09/07/19 13:45 Urine pH 5.0 (5.0-7.0) 09/07/19 13:45 Ur Specific [place] 1.019 (1.003-1.030) 09/07/19 13:45 Urine Protein >500 mg/dL (Negative) 09/07/19 13:45 Urine Glucose (UA) Neg mg/dL (Negative) 09/07/19 13:45 Urine Ketones Tr mg/dL (Negative) 09/07/19 13:45 Urine Blood Sm (Negative) 09/07/19 13:45 Urine Nitrite Neg (Negative) 09/07/19 13:45 Urine Bilirubin Neg (Negative) 09/07/19 13:45 Urine Urobilinogen 2.0 mg/dL (<2.0) 09/07/19 13:45 Ur Leukocyte Esterase Mod (Negative) 09/07/19 13:45 Urine WBC (Auto) > 182.0 /HPF (0.0-6.0) H 09/07/19 13:45 Urine RBC (Auto) 10.0 /HPF (0.0-6.0) 09/07/19 13:45 U Epithel Cells (Auto) 6.0 /HPF (0-13.0) 09/07/19 13:45 Urine Bacteria (Auto) 1+ /HPF (Negative) 09/07/19 13:45 Urine WBC Clumps 3+ /HPF 09/07/19 13:45 Urine Mucus Few /HPF 09/07/19 13:45 Short CBC 09/07/19 Range/Units 15:38 WBC 13.2 H (4.5-11.0) K/mm3 Hgb 8.6 L (10.1-14.3) gm/dl Hct 28.8 L (30.3-42.9) % Plt Count 219 (140-440) K/mm3 BMP 09/07/19 12:45 Sodium 139 Potassium 3.3 L Chloride 102.0 Carbon Dioxide 18 L BUN 25 H Creatinine 5.6 H Glucose 129 H Calcium 8.8 Liver Function 09/07/19 Range/Units 12:45 Total Bilirubin 0.30 (0.1-1.2) mg/dL AST 27 (5-40) units/L ALT 16 (7-56) units/L Alkaline Phosphatase 90 (35-129) units/L Albumin 2.2 L (3.9-5) g/dL Urine 09/07/19 Range/Units 13:45 Urine Color Sarah (Yellow) Urine pH 5.0 (5.0-7.0) Ur Specific [place] 1.019 (1.003-1.030) Urine Protein >500 (Negative) mg/dL Urine Glucose (UA) Neg (Negative) mg/dL - Imaging and Cardiology EKG: report reviewed (Sinus tachycardia, heart rate of 111, left anterior fascicular block.) Assessment and Plan Assessment and plan: Critical care time 40 minutes Advance Directives: Yes (Full code) VTE prophylaxis?: Chemical Plan of care discussed with patient/family: Yes - Patient Problems (1) Septic shock Current Visit: Yes Status: Acute Plan to address problem: Patient is in septic shock Secondary to urinary tract infection Patient initiated on IV cefepime and vancomycin pending cultures Was given aztreonam in the ER. Patient has penicillin allergy but there should not be be much cross-reactivity with severe cefepime (2) Acute encephalopathy Current Visit: Yes Status: Acute Plan to address problem: Sec to sepsis Uremia and UTi (3) ESRD (end stage renal disease) on dialysis Current Visit: Yes Status: Chronic Plan to address problem: Nephrology consulted (4) UTI (urinary tract infection) Current Visit: Yes Status: Acute Qualifiers: Urinary tract infection type: acute cystitis Plan to address problem: IV cefepime for now (5) Hypotension Current Visit: No Status: Acute Qualifiers: Hypotension type: unspecified hypotension type Qualified Code(s): I95.9 - Hypotension, unspecified Plan to address problem: IV fluids and pressors if necessary (6) Sacral decubitus ulcer Current Visit: Yes Status: Chronic Plan to address problem: Wound care consult requested (7) Seizure disorder Current Visit: Yes Status: Acute Plan to address problem: Continue Depakote Check Depakote level (8) Tremors of nervous system Current Visit: Yes Status: Chronic Plan to address problem: Possible Parkinson's Neurology consulted (9) Schizophrenia Current Visit: Yes Status: Chronic Qualifiers: Schizophrenia type: unspecified Qualified Code(s): F20.9 - Schizophrenia, unspecified Plan to address problem: On Seroquel. Continue Seroquel (10) DVT prophylaxis Current Visit: Yes Status: Acute Plan to address problem: On heparin and GI prophylaxis
[2019-09-07] MEDS ORDERED: ACETAMINOPHEN 325 MG TAB PO PRN ×2 (18:42→18:44)
[2019-09-07] MEDS ORDERED: ONDANSETRON 4 MG/2 ML INJ IV PRN (18:44)
[2019-09-07] MEDS ORDERED: HYDROmorphone 1 MG/1 ML INJ IV PRN (18:44)
[2019-09-07] MEDS: CEFEPIME/NS 1 GM/100 ML 1 GM/100 ML BAG IV SCH (20:19)
[2019-09-07] MEDS ORDERED: AZTREONAM 500 MG in SODIUM CHLORIDE 0.9% 50 ML IV SCH (21:30)
[2019-09-08] MEDS ORDERED: FAMOTIDINE 20 MG TAB ONE (01:04)
[2019-09-08] MEDS ORDERED: DIVALPROEX ER 500 MG TAB PO ONE (01:04)
[2019-09-08] MEDS ORDERED: QUEtiapine 200 MG TAB ONE (01:05)
[2019-09-08] MEDS ORDERED: HEPARIN 5,000 UNIT/1 ML VIAL ONE (01:05)
[2019-09-08] MEDS ORDERED: LORazepam 1 MG TAB ONE (01:06)
[2019-09-08] MEDS ORDERED: NORepinephrine/NS 4 MG-250 ML 4 MG/250 ML BAG IV ONE ×2 (01:08→07:39)
[2019-09-08] MEDS: CALCIUM ACETATE 667 MG CAP PO SCH ×4 (01:22→20:13)
[2019-09-08] MEDS: MIDODRINE 5 MG TAB PO SCH ×4 (01:23→20:12)
[2019-09-08] MEDS: LORazepam 1 MG TAB PO SCH ×3 (01:23→21:14)
[2019-09-08] MEDS: HEPARIN 5,000 UNIT/1 ML VIAL SUB-Q SCH ×3 (01:24→21:14)
[2019-09-08] MEDS: QUEtiapine 200 MG TAB PO SCH ×2 (01:24→21:14)
[2019-09-08] MEDS: FAMOTIDINE 10 MG TAB PO SCH ×2 (01:24→13:41)
[2019-09-08] MEDS: DIVALPROEX ER 500 MG TAB PO SCH ×3 (01:24→21:17)
[2019-09-08 04:34] LABS: Basophils % (Auto) 0.3 % (0.0-1.8); Eosinophils % (Auto) 0.2 % (0.0-4.3); Hematocrit 25.5 % (30.3-42.9); Hemoglobin 8.1 gm/dl (10.1-14.3); Lymphocytes # (Auto) 0.6 K/mm3 (1.2-5.4); Lymphocytes % (Auto) 5.2 % (13.4-35.0); Mean Corpuscular HGB Conc 32 % (30-34); Mean Corpuscular Volume 91 fl (79-97); Monocytes # (Auto) 0.8 K/mm3 (0.0-0.8); Monocytes % (Auto) 7.2 % (0.0-7.3); Platelet Count 234 K/mm3 (140-440); Red Blood Count 2.79 M/mm3 (3.65-5.03)
[2019-09-08 04:39] LABS: Red Cell Distribution Width 20.4 % (13.2-15.2)
[2019-09-08 04:58] LABS: Albumin 2.4 g/dL (3.9-5); Calcium 8.9 mg/dL (8.4-10.2)
[2019-09-08] MEDS ORDERED: HYDROmorphone 1 MG/1 ML INJ ONE (06:17)
[2019-09-08] MEDS: NORepinephrine/NS 4 MG-250 ML 4 MG/250 ML BAG IV SCH ×4 (07:17→23:39)
[2019-09-08] MEDS: CEFEPIME/NS 1 GM/100 ML 1 GM/100 ML BAG IV SCH ×2 (08:11→20:14)
--- NOTE | 2019-09-08 09:46 | Progress Note ---
Assessment and Plan Assessment and plan: Patient is a 64 yo woman with a history of ESRD on HD TTS, Schizoaffective, bipolar disorder, hypertension, seizure disorder and AOCD who presents to [facility] ED with fevers, AMS and low blood pressure. She was admitted to ICU for septic shock from UTI requiring iv Levophed gtt. Septic Shock: treat the UTI, consult ID, follow cultures, try to wean off Levophed, carefully with IVF due to ESRD patient causing fluid overload UTI with sepsis: treat with IV abx, follow urine cultures if sent Acute metabolic encephalopathy, poa due to the above ESRD on HD TTS: consult nephrology Sacral decubitus ulcer: Wound care consult requested Seizure disorder: follow up on Depakote level, she has a history of toxicity Schizoaffective/bipolar: consider mental health consult once she wakes up more DVT prophylaxis On heparin and GI prophylaxis full code Disposition: continue inpatient care, icu care, try to wean off Vasopressors. CCT 36 minutes History Interval history: Patient was seen and examined. Follow-up on current diagnosis uti sepsis. Overnight uneventful. Patient denies any chest pain, shortness breath, nausea/vomiting or severe headaches. Imaging, nursing note, chart, labs and old chart reviewed. Discussed with patient. Hospitalist Physical - Physical exam Narrative exam: Gen: ill appearing, lethargic, difficult to arouse but she will make grimacing faces to stimuli HEENT: NCAT, EOMI, PERRL, OP Clear Neck: supple, no adenopathy, no thyromegaly, no JVD CVS/Heart: Regular tachycardia, normal S1S2, pulses present bilaterally Chest/Lungs: CTA B, Symmetrical chest expansion, good air entry bilaterally GI/Abdomen: soft, NTND, good bowel sounds, no guarding or rebound /Bladder: no suprapubic tenderness, no CVA or paraspinal tenderness Extermity/Skin: no c/c/e, no obvious rash MSK: FROM x 4 Neuro: CN 2-12 grossly intact, no new focal deficits Psych: calm - Constitutional Vitals: Temp Pulse Resp BP Pulse Ox 99.4 F 107 H 11 L 81/36 100 09/07/19 18:59 09/08/19 07:00 09/08/19 07:00 09/08/19 07:00 09/08/19 07:00 General appearance: Present: no acute distress, well-nourished Results - Labs CBC & Chem 7: 09/08/19 04:00 09/08/19 04:00 Labs: Laboratory Last Values WBC 10.9 K/mm3 (4.5-11.0) 09/08/19 04:00 RBC 2.79 M/mm3 (3.65-5.03) L 09/08/19 04:00 Hgb 8.1 gm/dl (10.1-14.3) L 09/08/19 04:00 Hct 25.5 % (30.3-42.9) L 09/08/19 04:00 MCV 91 fl (79-97) 09/08/19 04:00 MCH 29 pg (28-32) 09/08/19 04:00 MCHC 32 % (30-34) 09/08/19 04:00 RDW 20.4 % (13.2-15.2) H 09/08/19 04:00 Plt Count 234 K/mm3 (140-440) 09/08/19 04:00 Lymph % (Auto) 5.2 % (13.4-35.0) L 09/08/19 04:00 [place] % (Auto) 7.2 % (0.0-7.3) 09/08/19 04:00 Eos % (Auto) 0.2 % (0.0-4.3) 09/08/19 04:00 Baso % (Auto) 0.3 % (0.0-1.8) 09/08/19 04:00 Lymph # 0.6 K/mm3 (1.2-5.4) L 09/08/19 04:00 [place] # 0.8 K/mm3 (0.0-0.8) 09/08/19 04:00 Eos # 0.0 K/mm3 (0.0-0.4) 09/08/19 04:00 Baso # 0.0 K/mm3 (0.0-0.1) 09/08/19 04:00 Seg Neutrophils % 87.1 % (40.0-70.0) H 09/08/19 04:00 Seg Neutrophils # 9.5 K/mm3 (1.8-7.7) H 09/08/19 04:00 APTT 28.0 Sec. (24.2-36.6) 09/07/19 12:45 VBG pH 7.333 (7.320-7.420) 09/07/19 12:45 Sodium 142 mmol/L (137-145) 09/08/19 04:00 Potassium 3.6 mmol/L (3.6-5.0) 09/08/19 04:00 Chloride 109.1 mmol/L (98-107) H 09/08/19 04:00 Carbon Dioxide 15 mmol/L (22-30) L 09/08/19 04:00 Anion Gap 22 mmol/L 09/08/19 04:00 BUN 33 mg/dL (7-17) H 09/08/19 04:00 Creatinine 5.5 mg/dL (0.7-1.2) H 09/08/19 04:00 Estimated GFR 9 ml/min 09/08/19 04:00 BUN/Creatinine Ratio 6 % 09/08/19 04:00 Glucose 137 mg/dL (65-100) H 09/08/19 04:00 Hemoglobin A1c 5.3 % (4-6) 09/07/19 20:10 Lactic Acid 1.30 mmol/L (0.7-2.0) 09/07/19 17:03 Calcium 8.9 mg/dL (8.4-10.2) 09/08/19 04:00 Total Bilirubin 0.30 mg/dL (0.1-1.2) 09/08/19 04:00 AST 24 units/L (5-40) 09/08/19 04:00 ALT 18 units/L (7-56) 09/08/19 04:00 Alkaline Phosphatase 96 units/L (35-129) 09/08/19 04:00 Total Protein 5.6 g/dL (6.3-8.2) L 09/08/19 04:00 Albumin 2.4 g/dL (3.9-5) L 09/08/19 04:00 Albumin/Globulin Ratio 0.8 % 09/08/19 04:00 Urine Color Sarah (Yellow) 09/07/19 13:45 Urine Turbidity Cloudy (Clear) 09/07/19 13:45 Urine pH 5.0 (5.0-7.0) 09/07/19 13:45 Ur Specific [place] 1.019 (1.003-1.030) 09/07/19 13:45 Urine Protein >500 mg/dL (Negative) 09/07/19 13:45 Urine Glucose (UA) Neg mg/dL (Negative) 09/07/19 13:45 Urine Ketones Tr mg/dL (Negative) 09/07/19 13:45 Urine Blood Sm (Negative) 09/07/19 13:45 Urine Nitrite Neg (Negative) 09/07/19 13:45 Urine Bilirubin Neg (Negative) 09/07/19 13:45 Urine Urobilinogen 2.0 mg/dL (<2.0) 09/07/19 13:45 Ur Leukocyte Esterase Mod (Negative) 09/07/19 13:45 Urine WBC (Auto) > 182.0 /HPF (0.0-6.0) H 09/07/19 13:45 Urine RBC (Auto) 10.0 /HPF (0.0-6.0) 09/07/19 13:45 U Epithel Cells (Auto) 6.0 /HPF (0-13.0) 09/07/19 13:45 Urine Bacteria (Auto) 1+ /HPF (Negative) 09/07/19 13:45 Urine WBC Clumps 3+ /HPF 09/07/19 13:45 Urine Mucus Few /HPF 09/07/19 13:45 Valproic Acid < 2.8 ug/mL (50-100) L 09/07/19 20:10 Active Medications - Current Medications Current Medications: Generic Name Dose Route Start Last Admin Trade Name Freq PRN Reason Stop Dose Admin Acetaminophen 650 mg 09/07/19 18:42 Tylenol PO Q4H PRN Pain MILD(1-3)/Fever >100.5/DRAKE Calcium Acetate 667 mg 09/07/19 20:00 09/08/19 01:22 Phoslo PO Not Given TID CONNOR Divalproex Sodium 500 mg 09/08/19 10:00 Depakote Er PO QAM CONNOR Divalproex Sodium 1,500 mg 09/07/19 22:00 09/08/19 01:24 Depakote Er PO 1,500 mg HS CONNOR Administration Famotidine 10 mg 09/07/19 22:00 09/08/19 01:24 Pepcid PO 10 mg DAILY CONNOR Administration Heparin Sodium (Porcine) 5,000 unit 09/07/19 22:00 09/08/19 01:24 Heparin SUB-Q 5,000 unit Q12HR CONNOR Administration Hydromorphone HCl 0.25 mg 09/07/19 18:44 09/08/19 06:15 Dilaudid IV 0.25 mg Q3H PRN Administration Pain, Moderate (4-6) Norepinephrine 4 mg in 250 mls @ 7.5 mls/hr 09/07/19 18:00 09/08/19 07:19 Levophed Drip 4 Mg/Ns 250 Ml IV 14 mcg/min TITR CONNOR 52.5 mls/hr Titration Protocol 2 MCG/MIN Cefepime HCl 1 gm in 100 mls @ 200 mls/hr 09/07/19 20:00 09/08/19 08:11 Cefepime/Ns 1 Gm/100 Ml IV 200 mls/hr Q24H [facility]NOR Administration Protocol Lorazepam 1 mg 09/07/19 22:00 09/08/19 01:23 Ativan PO 1 mg BID CONNOR Administration Memantine 5 mg 09/08/19 10:00 Memantine PO DAILY [facility] Midodrine 10 mg 09/07/19 20:00 09/08/19 01:23 Proamatine PO Not Given TID CONNOR Ondansetron HCl 4 mg 09/07/19 18:44 Zofran IV Q8H PRN Nausea And Vomiting Quetiapine Fumarate 400 mg 09/07/19 22:00 09/08/19 01:24 Seroquel PO 400 mg QHS [facility]NOR Administration Sodium Chloride 10 ml 09/07/19 22:00 09/08/19 01:24 Sodium Chloride Flush Syringe 10 Ml IV 10 ml BID [facility]NOR Administration Sodium Chloride 10 ml 09/07/19 18:44 Sodium Chloride Flush Syringe 10 Ml IV PRN PRN LINE FLUSH
[2019-09-08] MEDS ORDERED: MEMANTINE 5 MG PO SCH (10:00)
--- NOTE | 2019-09-08 12:31 | Consultation ---
History of Present Illness - Reason for Consult Consult date: 09/08/19 end stage renal disease - History of Present Illness This is a 64 yea old female with ESRD and other medical problems who presents with fevers, hypotension, and altered mental status. She usually dialyzes on Sunday at [facility]. Last treatment appears to have been on 09/06/19. She was noted to be altered and brought in to ED, where she was found to have blood pressure ranging from 70/50 to 90/60, tachycardic to 140, and high leukocytosis. At time of consult, she is more alert but remains a little altered and cannot provide more history. Past History Past Medical History: ESRD, hypertension Past Surgical History: No surgical history Social history: no significant social history Family history: no significant family history Medications and Allergies Allergies Allergy/AdvReac Type Severity Reaction Status Date / Time Penicillins Allergy Rash Verified 02/06/17 13:29 corn AdvReac Unknown Verified 05/14/19 15:01 Home Medications Medication Instructions Recorded Confirmed Last Taken Type clonazePAM [KlonoPIN] 0.5 mg PO QHS #14 tablet 05/22/19 09/07/19 Unknown Rx Divalproex ER [Depakote ER] 1,500 mg PO HS 05/29/19 09/07/19 Unknown History Divalproex ER [Depakote ER] 500 mg PO QAM 05/29/19 09/07/19 Unknown History Acetaminophen [Acetaminophen TAB] 650 mg PO Q4H PRN tablet 06/03/19 09/07/19 Unknown Rx Calcium Acetate [Phoslo] 667 mg PO TID 08/20/19 09/07/19 Unknown History LORazepam [Ativan] 1 mg PO BID 08/20/19 09/07/19 Unknown History Memantine Xr [Namenda Xr] 5 mg PO DAILY 08/20/19 09/07/19 Unknown History Midodrine [Proamatine] 10 mg PO TID 08/20/19 09/07/19 Unknown History QUEtiapine [SEROquel] 400 mg PO QHS 08/20/19 09/07/19 Unknown History Active Meds: Active Medications Acetaminophen (Tylenol) 650 mg PO Q4H PRN PRN Reason: Pain MILD(1-3)/Fever >100.5/DRAKE Calcium Acetate (Phoslo) 667 mg PO TID [facility] Last Admin: 09/08/19 01:22 Dose: Not Given Documented by: Divalproex Sodium (Depakote Er) 500 mg PO QAM [facility] Divalproex Sodium (Depakote Er) 1,500 mg PO HS [facility] Last Admin: 09/08/19 01:24 Dose: 1,500 mg Documented by: Famotidine (Pepcid) 10 mg PO DAILY [facility] Last Admin: 09/08/19 01:24 Dose: 10 mg Documented by: Heparin Sodium (Porcine) (Heparin) 5,000 unit SUB-Q Q12HR [facility] Last Admin: 09/08/19 01:24 Dose: 5,000 unit Documented by: Hydromorphone HCl (Dilaudid) 0.25 mg IV Q3H PRN PRN Reason: Pain, Moderate (4-6) Last Admin: 09/08/19 06:15 Dose: 0.25 mg Documented by: Norepinephrine (Levophed Drip 4 Mg/Ns 250 Ml) 4 mg in 250 mls @ 7.5 mls/hr IV TITR [facility]; Protocol Last Titration: 09/08/19 09:30 Dose: 16 mcg/min, 60 mls/hr Documented by: Cefepime HCl (Cefepime/Ns 1 Gm/100 Ml) 1 gm in 100 mls @ 200 mls/hr IV Q24H [facility]; Protocol Last Admin: 09/08/19 08:11 Dose: 200 mls/hr Documented by: Lorazepam (Ativan) 1 mg PO BID [facility] Last Admin: 09/08/19 01:23 Dose: 1 mg Documented by: Memantine (Memantine) 5 mg PO DAILY [facility] Midodrine (Proamatine) 10 mg PO TID [facility] Last Admin: 09/08/19 01:23 Dose: Not Given Documented by: Ondansetron HCl (Zofran) 4 mg IV Q8H PRN PRN Reason: Nausea And Vomiting Quetiapine Fumarate (Seroquel) 400 mg PO QHS [facility] Last Admin: 09/08/19 01:24 Dose: 400 mg Documented by: Sodium Chloride (Sodium Chloride Flush Syringe 10 Ml) 10 ml IV BID [facility] Last Admin: 09/08/19 01:24 Dose: 10 ml Documented by: Sodium Chloride (Sodium Chloride Flush Syringe 10 Ml) 10 ml IV PRN PRN PRN Reason: LINE FLUSH Review of Systems ROS unobtainable: due to mental status Exam - Vital Signs Vital signs: Vital Signs Pulse Ox 92 09/07/19 12:24 - Physical Exam Narrative exam: Gen: chronically frail appearing, lethargic, no acute distress HEENT: NCAT, EOMI Neck: supple, no adenopathy; RIJ CVC noted C/D/i CVS/Heart: Regular tachycardia, normal S1S2, pulses present bilaterally Chest/Lungs: CTAB GI/Abdomen: soft, NTND, good bowel sounds, no guarding or rebound Extermity/Skin: intact MSK: FROM x 4 Neuro: CN 2-12 grossly intact, no focal deficits, altered Psych: calm Results - Lab Results 09/08/19 04:00 09/08/19 04:00 Most recent lab results Calcium 8.9 mg/dL (8.4-10.2) 09/08/19 04:00 Assessment and Plan This is a 64 yo woman with a ESRD on HD who presents to [facility] ED with fevers, AMS, low blood pressure who was admitted to ICU for septic shock from UTI requiring Levophed gtt. # ESRD: will plan to continue HD // or prn if stable; no indication for HD today given lytes and volume - avoid nephrotoxins - renal diet - renally dose meds - daily labs # Acidosis: likely ESRD + lactic acidosis, will follow and provide renal r eplacement prn # Anemia: in setting of ESRD and acute illness; will continue ESAs with HD as indicated given hemoglobin <9 # Secondary Hyperparathyroidism: continue vitamin D analogs with HD, binders as indicated # Septic Shock/Hypotension: hold all home BP meds, vasopressors prn, antibiotics per primar. Limit UF with HD, will change dialysis settings to minimize hypotension. # Seizure disorder: depakote level low, no indication for removal with HD
[2019-09-08] MEDS ORDERED: HEPARIN 10,000 UNITS/10 ML VIAL IV PRN (12:32)
[2019-09-08] MEDS ORDERED: PARICALCITOL 2 MCG/1 ML INJ IV PRN (12:32)
[2019-09-08] MEDS ORDERED: SODIUM CHLORIDE 0.9% 100 ML IV PRN (12:32)
[2019-09-08 12:37] LABS: Hepatitis B Surface Antigen Non-Reactive (Negative); Hepatitis C Virus Antibody Non-Reactive (NonReactive)
[2019-09-08] MEDS: MEMANTINE 5 MG TAB PO SCH (13:41)
--- NOTE | 2019-09-09 00:17 | Consultation ---
History of Present Illness Consult date: 09/09/19 Requesting physician: ANA LAURA SANTANA Reason for consult: other (sepsis, SOB) History of present illness: 64 yo NH resident, transferred to ED for high fevers and hypotension. UA dirty in ED, now on Levophed and ABX. Patient awake, alert, and a poor historian. Denies SOB or chest pain. Denies other complaints. Permcath recently placed. Active Medications Acetaminophen (Tylenol) 650 mg PO Q4H PRN PRN Reason: Pain MILD(1-3)/Fever >100.5/DRAKE Calcium Acetate (Phoslo) 667 mg PO TID [facility] Last Admin: 09/09/19 08:29 Dose: 667 mg Documented by: Divalproex Sodium (Depakote Er) 500 mg PO QAM [facility] Last Admin: 09/08/19 13:40 Dose: Not Given Documented by: Divalproex Sodium (Depakote Er) 1,500 mg PO HS [facility] Last Admin: 09/08/19 21:17 Dose: 1,500 mg Documented by: Epoetin Lb (Procrit) 10,000 unit IV BIANCA PRN PRN Reason: hemodialysis Famotidine (Pepcid) 10 mg PO DAILY [facility] Last Admin: 09/08/19 13:41 Dose: Not Given Documented by: Heparin Sodium (Porcine) (Heparin) 5,000 unit SUB-Q Q12HR [facility] Last Admin: 09/08/19 21:14 Dose: 5,000 unit Documented by: Heparin Sodium (Porcine) (Heparin 10,000 Units/10 Ml) 3,000 unit IV BIANCA PRN PRN Reason: hemodialysis Hydromorphone HCl (Dilaudid) 0.25 mg IV Q3H PRN PRN Reason: Pain, Moderate (4-6) Last Admin: 09/08/19 06:15 Dose: 0.25 mg Documented by: Norepinephrine (Levophed Drip 4 Mg/Ns 250 Ml) 4 mg in 250 mls @ 7.5 mls/hr IV TITR [facility]; Protocol Last Admin: 09/09/19 08:30 Dose: 16 mcg/min, 60 mls/hr Documented by: Cefepime HCl (Cefepime/Ns 1 Gm/100 Ml) 1 gm in 100 mls @ 200 mls/hr IV Q24H [facility]; Protocol Last Admin: 09/08/19 20:14 Dose: 200 mls/hr Documented by: Sodium Chloride (Nacl 0.9%) 100 mls @ 999 mls/hr IV BIANCA PRN PRN Reason: Hypotension Lorazepam (Ativan) 1 mg PO BID [facility] Last Admin: 09/08/19 21:14 Dose: 1 mg Documented by: Memantine (Memantine) 5 mg PO DAILY [facility] Last Admin: 09/08/19 13:41 Dose: Not Given Documented by: Midodrine (Proamatine) 10 mg PO TID [facility] Last Admin: 09/09/19 08:29 Dose: 10 mg Documented by: Ondansetron HCl (Zofran) 4 mg IV Q8H PRN PRN Reason: Nausea And Vomiting Paricalcitol (Zemplar) 0.5 mcg IV BIANCA PRN PRN Reason: hemodialysis Quetiapine Fumarate (Seroquel) 400 mg PO QHS [facility] Last Admin: 09/08/19 21:14 Dose: 400 mg Documented by: Sodium Chloride (Sodium Chloride Flush Syringe 10 Ml) 10 ml IV BID [facility] Last Admin: 09/08/19 21:18 Dose: 10 ml Documented by: Sodium Chloride (Sodium Chloride Flush Syringe 10 Ml) 10 ml IV PRN PRN PRN Reason: LINE FLUSH Past History Past Medical History: ESRD, hypertension Past Surgical History: No surgical history Social history: no significant social history, full code. denies: smoking, alcohol abuse, prescription drug abuse, IV drug use Family history: no significant family history Medications and Allergies Allergies Allergy/AdvReac Type Severity Reaction Status Date / Time Penicillins Allergy Rash Verified 02/06/17 13:29 corn AdvReac Unknown Verified 05/14/19 15:01 Home Medications Medication Instructions Recorded Confirmed Last Taken Type clonazePAM [KlonoPIN] 0.5 mg PO QHS #14 tablet 05/22/19 09/07/19 Unknown Rx Divalproex ER [Depakote ER] 1,500 mg PO HS 05/29/19 09/07/19 Unknown History Divalproex ER [Depakote ER] 500 mg PO QAM 05/29/19 09/07/19 Unknown History Acetaminophen [Acetaminophen TAB] 650 mg PO Q4H PRN tablet 06/03/19 09/07/19 Unknown Rx Calcium Acetate [Phoslo] 667 mg PO TID 08/20/19 09/07/19 Unknown History LORazepam [Ativan] 1 mg PO BID 08/20/19 09/07/19 Unknown History Memantine Xr [Namenda Xr] 5 mg PO DAILY 08/20/19 09/07/19 Unknown History Midodrine [Proamatine] 10 mg PO TID 08/20/19 09/07/19 Unknown History QUEtiapine [SEROquel] 400 mg PO QHS 08/20/19 09/07/19 Unknown History Active Meds: Active Medications Acetaminophen (Tylenol) 650 mg PO Q4H PRN PRN Reason: Pain MILD(1-3)/Fever >100.5/DRAKE Calcium Acetate (Phoslo) 667 mg PO TID [facility] Last Admin: 09/08/19 20:13 Dose: 667 mg Documented by: Divalproex Sodium (Depakote Er) 500 mg PO QAM [facility] Last Admin: 09/08/19 13:40 Dose: Not Given Documented by: Divalproex Sodium (Depakote Er) 1,500 mg PO HS [facility] Last Admin: 09/08/19 21:17 Dose: 1,500 mg Documented by: Epoetin Lb (Procrit) 10,000 unit IV BIANCA PRN PRN Reason: hemodialysis Famotidine (Pepcid) 10 mg PO DAILY [facility] Last Admin: 09/08/19 13:41 Dose: Not Given Documented by: Heparin Sodium (Porcine) (Heparin) 5,000 unit SUB-Q Q12HR [facility] Last Admin: 09/08/19 21:14 Dose: 5,000 unit Documented by: Heparin Sodium (Porcine) (Heparin 10,000 Units/10 Ml) 3,000 unit IV BIANCA PRN PRN Reason: hemodialysis Hydromorphone HCl (Dilaudid) 0.25 mg IV Q3H PRN PRN Reason: Pain, Moderate (4-6) Last Admin: 09/08/19 06:15 Dose: 0.25 mg Documented by: Norepinephrine (Levophed Drip 4 Mg/Ns 250 Ml) 4 mg in 250 mls @ 7.5 mls/hr IV TITR [facility]; Protocol Last Titration: 09/09/19 00:00 Dose: 18 mcg/min, 67.5 mls/hr Documented by: Cefepime HCl (Cefepime/Ns 1 Gm/100 Ml) 1 gm in 100 mls @ 200 mls/hr IV Q24H [facility]; Protocol Last Admin: 09/08/19 20:14 Dose: 200 mls/hr Documented by: Sodium Chloride (Nacl 0.9%) 100 mls @ 999 mls/hr IV BIANCA PRN PRN Reason: Hypotension Lorazepam (Ativan) 1 mg PO BID [facility] Last Admin: 09/08/19 21:14 Dose: 1 mg Documented by: Memantine (Memantine) 5 mg PO DAILY [facility] Last Admin: 09/08/19 13:41 Dose: Not Given Documented by: Midodrine (Proamatine) 10 mg PO TID [facility] Last Admin: 09/08/19 20:12 Dose: 10 mg Documented by: Ondansetron HCl (Zofran) 4 mg IV Q8H PRN PRN Reason: Nausea And Vomiting Paricalcitol (Zemplar) 0.5 mcg IV BIANCA PRN PRN Reason: hemodialysis Quetiapine Fumarate (Seroquel) 400 mg PO QHS [facility] Last Admin: 09/08/19 21:14 Dose: 400 mg Documented by: Sodium Chloride (Sodium Chloride Flush Syringe 10 Ml) 10 ml IV BID [facility] Last Admin: 09/08/19 21:18 Dose: 10 ml Documented by: Sodium Chloride (Sodium Chloride Flush Syringe 10 Ml) 10 ml IV PRN PRN PRN Reason: LINE FLUSH Review of Systems All systems: negative Physical Examination Vital signs: Vital Signs Pulse Ox 92 09/07/19 12:24 Vital Signs - 24 hr 09/08/19 09/08/19 09/08/19 00:30 00:45 01:00 Temperature Pulse Rate 81 82 83 Respiratory 17 12 20 Rate Blood Pressure 98/57 91/52 106/53 Blood Pressure [Right] O2 Sat by Pulse 86 100 100 Oximetry 09/08/19 09/08/19 09/08/19 01:16 01:30 01:45 Temperature Pulse Rate 98 H 76 75 Respiratory 10 L 12 22 Rate Blood Pressure 105/44 97/49 87/48 Blood Pressure [Right] O2 Sat by Pulse 98 100 99 Oximetry 09/08/19 09/08/19 09/08/19 02:00 02:15 02:30 Temperature Pulse Rate 81 89 86 Respiratory 17 18 14 Rate Blood Pressure 102/49 103/53 96/55 Blood Pressure [Right] O2 Sat by Pulse 100 100 100 Oximetry 09/08/19 09/08/19 09/08/19 02:45 03:00 03:15 Temperature Pulse Rate 77 84 81 Respiratory 14 19 14 Rate Blood Pressure 100/54 98/54 106/57 Blood Pressure [Right] O2 Sat by Pulse 100 100 100 Oximetry 09/08/19 09/08/19 09/08/19 03:30 03:45 04:00 Temperature Pulse Rate 83 77 98 H Respiratory 16 14 9 L Rate Blood Pressure 111/41 102/51 112/52 Blood Pressure [Right] O2 Sat by Pulse 100 100 99 Oximetry 09/08/19 09/08/19 09/08/19 04:15 04:30 04:45 Temperature Pulse Rate 95 H 88 73 Respiratory 13 16 17 Rate Blood Pressure 95/46 100/50 102/53 Blood Pressure [Right] O2 Sat by Pulse 99 100 100 Oximetry 09/08/19 09/08/19 09/08/19 05:00 05:15 05:30 Temperature Pulse Rate 110 H 125 H 120 H Respiratory 12 11 L 12 Rate Blood Pressure 102/64 82/49 90/51 Blood Pressure [Right] O2 Sat by Pulse 98 97 97 Oximetry 09/08/19 09/08/19 09/08/19 05:45 06:00 06:15 Temperature Pulse Rate 117 H 116 H 114 H Respiratory 11 L 9 L 9 L Rate Blood Pressure 100/46 92/40 95/56 Blood Pressure [Right] O2 Sat by Pulse 98 99 98 Oximetry 09/08/19 09/08/19 09/08/19 06:30 06:45 07:00 Temperature Pulse Rate 116 H 108 H 107 H Respiratory 11 L 16 11 L Rate Blood Pressure 102/52 92/44 81/36 Blood Pressure [Right] O2 Sat by Pulse 100 100 100 Oximetry 09/08/19 09/08/19 09/08/19 07:30 08:00 08:30 Temperature Pulse Rate 97 H 90 89 Respiratory 14 16 14 Rate Blood Pressure 87/38 86/38 86/45 Blood Pressure [Right] O2 Sat by Pulse 100 100 100 Oximetry 09/08/19 09/08/19 09/08/19 09:00 09:30 10:30 Temperature Pulse Rate 88 90 93 H Respiratory 18 15 12 Rate Blood Pressure 96/49 108/55 115/60 Blood Pressure [Right] O2 Sat by Pulse 100 100 100 Oximetry 09/08/19 09/08/19 09/08/19 11:00 11:30 12:00 Temperature Pulse Rate 93 H 88 108 H Respiratory 14 17 14 Rate Blood Pressure 112/55 85/38 Blood Pressure [Right] O2 Sat by Pulse 100 100 94 Oximetry 09/08/19 09/08/19 09/08/19 12:29 14:00 16:00 Temperature 99.4 F Pulse Rate 88 Respiratory 17 14 13 Rate Blood Pressure Blood Pressure 105/41 [Right] O2 Sat by Pulse 100 94 100 Oximetry 09/08/19 09/08/19 09/08/19 18:00 20:00 20:53 Temperature Pulse Rate 88 Respiratory 13 13 Rate Blood Pressure Blood Pressure [Right] O2 Sat by Pulse 100 100 95 Oximetry 09/08/19 09/09/19 22:00 00:00 Temperature Pulse Rate 88 Respiratory 13 13 Rate Blood Pressure Blood Pressure [Right] O2 Sat by Pulse 100 100 Oximetry General appearance: alert, other (critically ill on pressors) Eyes: non-icteric ENT: oropharynx moist Neck: supple Effort: normal Ascultation: Bilateral: clear Cardiovascular: regular rate and rhythm (no mrg) Gastrointestinal: normoactive bowel sounds, soft, non-tender, non-distended, other (benign exam) Extremities: no cyanosis, no edema, pink and warm normal mental status, non-focal exam, pupils equal and round mood appropriate, affect normal Results - Laboratory Findings CBC and BMP: 09/08/19 04:00 09/08/19 04:00 Abnormal lab findings: Abnormal Labs 09/07/19 09/07/19 09/07/19 12:45 12:45 13:45 WBC RBC Hgb Hct RDW Lymph % (Auto) Maries % (Auto) Lymph # Maries # Seg Neutrophils % Seg Neutrophils # Potassium 3.3 L Chloride Carbon Dioxide 18 L BUN 25 H Creatinine 5.6 H Glucose 129 H Lactic Acid 2.70 H* Total Protein 5.1 L Albumin 2.2 L Urine WBC (Auto) > 182.0 H Valproic Acid 09/07/19 09/07/19 09/08/19 15:38 20:10 04:00 WBC 13.2 H RBC 3.07 L 2.79 L Hgb 8.6 L 8.1 L Hct 28.8 L 25.5 L RDW 20.4 H 20.4 H Lymph % (Auto) 3.3 L 5.2 L Maries % (Auto) 15.6 H Lymph # 0.4 L 0.6 L Maries # 2.1 H Seg Neutrophils % 80.8 H 87.1 H Seg Neutrophils # 10.7 H 9.5 H Potassium Chloride Carbon Dioxide BUN Creatinine Glucose Lactic Acid Total Protein Albumin Urine WBC (Auto) Valproic Acid < 2.8 L 09/08/19 04:00 WBC RBC Hgb Hct RDW Lymph % (Auto) Maries % (Auto) Lymph # Maries # Seg Neutrophils % Seg Neutrophils # Potassium Chloride 109.1 H Carbon Dioxide 15 L BUN 33 H Creatinine 5.5 H Glucose 137 H Lactic Acid Total Protein 5.6 L Albumin 2.4 L Urine WBC (Auto) Valproic Acid - Diagnostic Findings Chest x-ray: report reviewed, image reviewed (L basilar atelectasis) Assessment and Plan Imp: 1. Pyuria -> probable UTI 2. Severe sepsis with septic shock 3. ESRD 4. Lactic acidosis 5. Mild L basilar atelectasis Rec: 1. Wean pressors to keep MAP > 65; cont. Midodrine 2. Agree w/ Vanco/Cefipime; f/u blood cultures; send urine culture (d/w RN) 3. HD per renal 4. SubQ heparin 5. Further plans pending clinical course Plan of care reviewed w/ patient, she understands/agrees; no family present CCT 31 minutes
[2019-09-09] MEDS: NORepinephrine/NS 4 MG-250 ML 4 MG/250 ML BAG IV SCH ×3 (04:22→13:05)
[2019-09-09] MEDS: CALCIUM ACETATE 667 MG CAP PO SCH ×4 (08:29→20:56)
[2019-09-09] MEDS: MIDODRINE 5 MG TAB PO SCH ×4 (08:29→20:57)
[2019-09-09] MEDS: LORazepam 1 MG TAB PO SCH ×2 (10:07→21:02)
[2019-09-09] MEDS: FAMOTIDINE 10 MG TAB PO SCH (10:07)
[2019-09-09] MEDS: MEMANTINE 5 MG TAB PO SCH (10:07)
[2019-09-09] MEDS: HEPARIN 5,000 UNIT/1 ML VIAL SUB-Q SCH ×2 (10:08→21:04)
[2019-09-09] MEDS: DIVALPROEX ER 500 MG TAB PO SCH ×2 (10:08→21:03)
--- NOTE | 2019-09-09 10:43 | Progress Note ---
Assessment and Plan # ESRD: will plan to continue HD // or prn if stable - avoid nephrotoxins - renal diet - renally dose meds - daily labs # Acidosis: will follow and provide renal replacement prn # Anemia: in setting of ESRD and acute illness; will continue ESAs with HD as indicated given hemoglobin <9 # Secondary Hyperparathyroidism: continue vitamin D analogs with HD, binders as indicated # Septic Shock/Hypotension: vasopressors prn, antibiotics per primary. Limit UF with HD -continue midodrine tid # Seizure disorder: Subjective Date of service: 09/09/19 Principal diagnosis: esrd Interval history: resting well in bed today Objective - Exam Narrative Exam: Gen: chronically frail appearing, lethargic, no acute distress HEENT: NCAT, EOMI Neck: supple, no adenopathy; RIJ CVC noted C/D/i CVS/Heart: Regular tachycardia, normal S1S2, pulses present bilaterally Chest/Lungs: CTAB GI/Abdomen: soft, NTND, good bowel sounds, no guarding or rebound Extermity/Skin: intact MSK: FROM x 4 Neuro: CN 2-12 grossly intact, no focal deficits, altered Psych: calm - Vital Signs Vital signs: Vital Signs - 12hr 09/09/19 09/09/19 09/09/19 00:00 02:00 04:00 Temperature Pulse Rate 88 88 Respiratory 13 13 13 Rate Blood Pressure O2 Sat by Pulse 100 100 100 Oximetry 09/09/19 09/09/19 09/09/19 06:00 08:00 08:33 Temperature 97.7 F Pulse Rate Respiratory 13 Rate Blood Pressure O2 Sat by Pulse 100 97 Oximetry 09/09/19 09/09/19 09/09/19 08:40 09:00 09:15 Temperature 97.9 F Pulse Rate 96 H 96 H 102 H Respiratory 20 Rate Blood Pressure 116/68 116/68 122/59 O2 Sat by Pulse Oximetry 09/09/19 09/09/19 09/09/19 09:30 09:45 10:03 Temperature Pulse Rate 104 H 103 H 100 H Respiratory Rate Blood Pressure 114/50 103/70 100/70 O2 Sat by Pulse Oximetry - Lab 09/08/19 04:00 09/08/19 04:00 Most recent lab results Calcium 8.9 mg/dL (8.4-10.2) 09/08/19 04:00 Medications & Allergies - Medications Allergies/Adverse Reactions: Allergies Penicillins Allergy (Verified 02/06/17 13:29) Rash corn Adverse Reaction (Verified 05/14/19 15:01) Unknown Home Medications: Home Medications Medication Instructions Recorded Confirmed Last Taken Type clonazePAM [KlonoPIN] 0.5 mg PO QHS #14 tablet 05/22/19 09/07/19 Unknown Rx Divalproex ER [Depakote ER] 1,500 mg PO HS 05/29/19 09/07/19 Unknown History Divalproex ER [Depakote ER] 500 mg PO QAM 05/29/19 09/07/19 Unknown History Acetaminophen [Acetaminophen TAB] 650 mg PO Q4H PRN tablet 06/03/19 09/07/19 Unknown Rx Calcium Acetate [Phoslo] 667 mg PO TID 08/20/19 09/07/19 Unknown History LORazepam [Ativan] 1 mg PO BID 08/20/19 09/07/19 Unknown History Memantine Xr [Namenda Xr] 5 mg PO DAILY 08/20/19 09/07/19 Unknown History Midodrine [Proamatine] 10 mg PO TID 08/20/19 09/07/19 Unknown History QUEtiapine [SEROquel] 400 mg PO QHS 08/20/19 09/07/19 Unknown History Active Medications: Generic Name Dose Route Start Last Admin Trade Name Freq PRN Reason Stop Dose Admin Acetaminophen 650 mg 09/07/19 18:42 Tylenol PO Q4H PRN Pain MILD(1-3)/Fever >100.5/DRAKE Calcium Acetate 667 mg 09/07/19 20:00 09/09/19 08:29 Phoslo PO 667 mg TID [facility] Administration Divalproex Sodium 500 mg 09/08/19 10:00 09/09/19 10:08 Depakote Er PO 500 mg QAM [facility] Administration Divalproex Sodium 1,500 mg 09/07/19 22:00 09/08/19 21:17 Depakote Er PO 1,500 mg HS [facility] Administration Epoetin Lb 10,000 unit 09/08/19 12:32 Procrit IV BIANCA PRN hemodialysis Famotidine 10 mg 09/07/19 22:00 09/09/19 10:07 Pepcid PO 10 mg DAILY [facility] Administration Heparin Sodium (Porcine) 5,000 unit 09/07/19 22:00 09/09/19 10:08 Heparin SUB-Q 5,000 unit Q12HR [facility] Administration Heparin Sodium (Porcine) 3,000 unit 09/08/19 12:32 Heparin 10,000 Units/10 Ml IV BIANCA PRN hemodialysis Hydromorphone HCl 0.25 mg 09/07/19 18:44 09/08/19 06:15 Dilaudid IV 0.25 mg Q3H PRN Administration Pain, Moderate (4-6) Norepinephrine 4 mg in 250 mls @ 7.5 mls/hr 09/07/19 18:00 09/09/19 08:30 Levophed Drip 4 Mg/Ns 250 Ml IV 16 mcg/min TITR [facility] 60 mls/hr Administration Protocol 2 MCG/MIN Cefepime HCl 1 gm in 100 mls @ 200 mls/hr 09/07/19 20:00 09/08/19 20:14 Cefepime/Ns 1 Gm/100 Ml IV 200 mls/hr Q24H [facility] Administration Protocol Sodium Chloride 100 mls @ 999 mls/hr 09/08/19 12:32 Nacl 0.9% IV BIANCA PRN Hypotension Lorazepam 1 mg 09/07/19 22:00 09/09/19 10:07 Ativan PO 1 mg BID [facility] Administration Memantine 5 mg 09/08/19 10:00 09/09/19 10:07 Memantine PO 5 mg DAILY [facility] Administration Midodrine 10 mg 09/07/19 20:00 09/09/19 08:29 Proamatine PO 10 mg TID [facility] Administration Ondansetron HCl 4 mg 09/07/19 18:44 Zofran IV Q8H PRN Nausea And Vomiting Paricalcitol 0.5 mcg 09/08/19 12:32 Zemplar IV BIANCA PRN hemodialysis Quetiapine Fumarate 400 mg 09/07/19 22:00 09/08/19 21:14 Seroquel PO 400 mg QHS [facility] Administration Sodium Chloride 10 ml 09/07/19 22:00 09/08/19 21:18 Sodium Chloride Flush Syringe 10 Ml IV 10 ml BID [facility] Administration Sodium Chloride 10 ml 09/07/19 18:44 Sodium Chloride Flush Syringe 10 Ml IV PRN PRN LINE FLUSH
--- NOTE | 2019-09-09 12:07 | Progress Note ---
Assessment and Plan Critical care time 40 minutes - Patient Problems (1) Septic shock Current Visit: Yes Status: Acute Plan to address problem: Patient is in septic shock Secondary to urinary tract infection Patient initiated on IV cefepime and vancomycin pending cultures Was given aztreonam in the ER. Patient has penicillin allergy but there should not be be much cross-reactivity with cefepime IV vancomycin was initiated (2) Acute encephalopathy Current Visit: Yes Status: Acute Plan to address problem: Sec to sepsis Uremia and UTi Improved (3) ESRD (end stage renal disease) on dialysis Current Visit: Yes Status: Chronic Plan to address problem: Nephrology consulted (4) UTI (urinary tract infection) Current Visit: Yes Status: Acute Qualifiers: Urinary tract infection type: acute cystitis Plan to address problem: IV cefepime for now and vancomycin (5) Hypotension Current Visit: No Status: Acute Qualifiers: Hypotension type: unspecified hypotension type Qualified Code(s): I95.9 - Hypotension, unspecified Plan to address problem: IV fluids and pressors Still on pressors (6) Sacral decubitus ulcer Current Visit: Yes Status: Chronic Plan to address problem: Wound care consult requested (7) Seizure disorder Current Visit: Yes Status: Acute Plan to address problem: Continue Depakote Check Depakote level (8) Tremors of nervous system Current Visit: Yes Status: Chronic Plan to address problem: Possible Parkinson's Neurology consulted (9) Schizophrenia Current Visit: Yes Status: Chronic Qualifiers: Schizophrenia type: unspecified Qualified Code(s): F20.9 - Schizophrenia, unspecified Plan to address problem: On Seroquel. Continue Seroquel (10) DVT prophylaxis Current Visit: Yes Status: Acute Plan to address problem: On heparin and GI prophylaxis Subjective Date of service: 09/09/19 Principal diagnosis: Septic shock, ESRD, sacral decubitus ulcer Interval history: 64-year-old female with multiple medical problems presents with high temperature of 101.9 and low blood pressure from the fpc. Patient also has altered mental status. Lethargic. Patient has end-stage renal disease with dialysis on Sunday, hypertension, drug-induced dyskinesia and dystonia, seizures, anxiety and hyperparathyroidism. In the emergency room patient blood pressure was ranging from 70/50 to 90/60. Central line was placed for possible use of pressors. Source of infection is urine which shows WBCs more than 182. Patient has a heart rate of 140. Patient also has tremors in both hands at rest. Symptomatically better but still on pressors Objective - Constitutional Vitals: Vital Signs - 12hr 09/09/19 09/09/19 09/09/19 00:00 02:00 04:00 Temperature Pulse Rate 88 88 Respiratory 13 13 13 Rate Blood Pressure O2 Sat by Pulse 100 100 100 Oximetry 09/09/19 09/09/19 09/09/19 06:00 08:00 08:33 Temperature 97.7 F Pulse Rate Respiratory 13 Rate Blood Pressure O2 Sat by Pulse 100 97 Oximetry 09/09/19 09/09/19 09/09/19 08:40 09:00 09:15 Temperature 97.9 F Pulse Rate 96 H 96 H 102 H Respiratory 20 Rate Blood Pressure 116/68 116/68 122/59 O2 Sat by Pulse Oximetry 09/09/19 09/09/19 09/09/19 09:30 09:45 10:03 Temperature Pulse Rate 104 H 103 H 100 H Respiratory Rate Blood Pressure 114/50 103/70 100/70 O2 Sat by Pulse Oximetry 09/09/19 09/09/19 09/09/19 10:15 10:30 10:45 Temperature Pulse Rate 100 H 106 H 110 H Respiratory Rate Blood Pressure 99/69 99/71 108/49 O2 Sat by Pulse Oximetry 09/09/19 09/09/19 09/09/19 11:00 11:15 11:30 Temperature Pulse Rate 100 H 101 H 99 H Respiratory Rate Blood Pressure 118/75 119/54 126/52 O2 Sat by Pulse Oximetry 09/09/19 11:45 Temperature Pulse Rate 101 H Respiratory Rate Blood Pressure 134/49 O2 Sat by Pulse Oximetry General appearance: Present: no acute distress, well-nourished - EENT Eyes: PERRL, EOM intact ENT: hearing intact, clear oral mucosa Ears: bilateral: normal - Neck Neck: supple, normal ROM - Respiratory Respiratory effort: normal Respiratory: bilateral: CTA - Breasts Breasts: normal - Cardiovascular Rhythm: regular Heart Sounds: Present: S1 & S2. Absent: gallop, rub Extremities: pulses intact, No edema, normal color, Full ROM, abnormal (Sacral decubitus ulcer) - Gastrointestinal General gastrointestinal: Present: soft, non-tender, non-distended, normal bowel sounds - Genitourinary Female genitourinary: normal - Integumentary Integumentary: clear, warm, dry - Musculoskeletal Musculoskeletal: generalized weakness - Neurologic Neurologic: moves all extremities - Psychiatric Psychiatric: memory intact, appropriate mood/affect, intact judgment & insight - Labs CBC & Chem 7: 09/08/19 04:00 09/08/19 04:00
[2019-09-09] MEDS ORDERED: SODIUM CHLORIDE 0.9% 500 ML 500 ML IV ONE (13:34)
--- NOTE | 2019-09-09 13:37 | Progress Note ---
Assessment and Plan Septic from UTI 1. Continue broad spec abx therapy 2. Follow up cultures 3. Will give 500cc bolus today 4. Wean for MAPS >60, unsure of what baseline BP is but patient is on midodrine at home CCT 31 minutes. Subjective Date of service: 09/09/19 Principal diagnosis: esrd Interval history: Still on pressors but down to 6. Awake. Objective Vital Signs - 12hr 09/09/19 09/09/19 09/09/19 02:00 04:00 06:00 Temperature Pulse Rate 88 Respiratory 13 13 13 Rate Blood Pressure O2 Sat by Pulse 100 100 100 Oximetry 09/09/19 09/09/19 09/09/19 08:00 08:33 08:40 Temperature 97.7 F 97.9 F Pulse Rate 89 96 H Respiratory 16 20 Rate Blood Pressure 116/68 O2 Sat by Pulse 100 97 Oximetry 09/09/19 09/09/19 09/09/19 09:00 09:15 09:30 Temperature Pulse Rate 96 H 102 H 104 H Respiratory Rate Blood Pressure 116/68 122/59 114/50 O2 Sat by Pulse Oximetry 09/09/19 09/09/19 09/09/19 09:45 10:00 10:03 Temperature Pulse Rate 103 H 100 H Respiratory 25 H Rate Blood Pressure 103/70 100/70 O2 Sat by Pulse 96 Oximetry 09/09/19 09/09/19 09/09/19 10:15 10:30 10:45 Temperature Pulse Rate 100 H 106 H 110 H Respiratory Rate Blood Pressure 99/69 99/71 108/49 O2 Sat by Pulse Oximetry 09/09/19 09/09/19 09/09/19 11:00 11:15 11:30 Temperature Pulse Rate 100 H 101 H 99 H Respiratory Rate Blood Pressure 118/75 119/54 126/52 O2 Sat by Pulse Oximetry 09/09/19 09/09/19 09/09/19 11:45 12:00 12:39 Temperature 97.9 F 97.9 F Pulse Rate 101 H 93 H 97 H Respiratory 20 24 Rate Blood Pressure 134/49 102/72 102/72 O2 Sat by Pulse 97 Oximetry Constitutional: alert, other (critically ill on pressors) Eyes: non-icteric ENT: oropharynx moist Neck: supple Effort: normal Ascultation: Bilateral: clear Cardiovascular: regular rate and rhythm (no mrg) Gastrointestinal: normoactive bowel sounds, soft, non-tender, non-distended, other (benign exam) Extremities: no cyanosis, no edema, pink and warm Neurologic: normal mental status, non-focal exam, pupils equal and round Psychiatric: mood appropriate, affect normal CBC and BMP: 09/08/19 04:00 09/08/19 04:00 Abnormal lab findings: Abnormal Labs 09/07/19 09/07/19 09/07/19 12:45 12:45 13:45 WBC RBC Hgb Hct RDW Lymph % (Auto) [place] % (Auto) Lymph # [place] # Seg Neutrophils % Seg Neutrophils # Potassium 3.3 L Chloride Carbon Dioxide 18 L BUN 25 H Creatinine 5.6 H Glucose 129 H Lactic Acid 2.70 H* Total Protein 5.1 L Albumin 2.2 L Urine WBC (Auto) > 182.0 H Valproic Acid 09/07/19 09/07/19 09/08/19 15:38 20:10 04:00 WBC 13.2 H RBC 3.07 L 2.79 L Hgb 8.6 L 8.1 L Hct 28.8 L 25.5 L RDW 20.4 H 20.4 H Lymph % (Auto) 3.3 L 5.2 L [place] % (Auto) 15.6 H Lymph # 0.4 L 0.6 L [place] # 2.1 H Seg Neutrophils % 80.8 H 87.1 H Seg Neutrophils # 10.7 H 9.5 H Potassium Chloride Carbon Dioxide BUN Creatinine Glucose Lactic Acid Total Protein Albumin Urine WBC (Auto) Valproic Acid < 2.8 L 09/08/19 04:00 WBC RBC Hgb Hct RDW Lymph % (Auto) [place] % (Auto) Lymph # [place] # Seg Neutrophils % Seg Neutrophils # Potassium Chloride 109.1 H Carbon Dioxide 15 L BUN 33 H Creatinine 5.5 H Glucose 137 H Lactic Acid Total Protein 5.6 L Albumin 2.4 L Urine WBC (Auto) Valproic Acid
[2019-09-09] MEDS: CEFEPIME/NS 1 GM/100 ML 1 GM/100 ML BAG IV SCH (20:55)
[2019-09-09] MEDS: QUEtiapine 200 MG TAB PO SCH (21:02)
[2019-09-10] MEDS ORDERED: SODIUM CHLORIDE 0.9% 250ML 250 ML IV ONE (00:25)
[2019-09-10] MEDS: NORepinephrine/NS 4 MG-250 ML 4 MG/250 ML BAG IV SCH ×2 (05:05→12:55)
[2019-09-10] MEDS: CALCIUM ACETATE 667 MG CAP PO SCH ×3 (08:26→21:08)
[2019-09-10] MEDS: MIDODRINE 5 MG TAB PO SCH ×3 (08:26→21:08)
--- NOTE | 2019-09-10 10:04 | Progress Note ---
Assessment and Plan # ESRD: will plan to continue HD // or prn if stable - avoid nephrotoxins - renal diet - renally dose meds - daily labs # Acidosis: will follow and provide renal replacement prn # Anemia: in setting of ESRD and acute illness; will continue ESAs with HD as indicated given hemoglobin <9 # Secondary Hyperparathyroidism: continue vitamin D analogs with HD, binders as indicated # Septic Shock/Hypotension: vasopressors prn, antibiotics per primary. Limit UF with HD -continue midodrine tid # Seizure disorder: UTI Subjective Date of service: 09/10/19 Principal diagnosis: esrd Interval history: resting well in bed today Objective - Exam Narrative Exam: Gen: chronically frail appearing, lethargic, no acute distress HEENT: NCAT, EOMI Neck: supple, no adenopathy; RIJ CVC noted C/D/i CVS/Heart: Regular tachycardia, normal S1S2, pulses present bilaterally Chest/Lungs: CTAB GI/Abdomen: soft, NTND, good bowel sounds, no guarding or rebound Extermity/Skin: intact MSK: FROM x 4 Neuro: CN 2-12 grossly intact, no focal deficits, altered Psych: calm - Vital Signs Vital signs: Vital Signs - 12hr 09/10/19 09/10/19 09/10/19 00:00 04:00 08:00 Temperature 97.6 F 97.1 F L 97.9 F Pulse Rate 82 82 63 Pulse Rate [ 63 From Monitor] Respiratory 14 14 15 Rate O2 Sat by Pulse 95 95 92 Oximetry - Lab 09/08/19 04:00 09/08/19 04:00 Most recent lab results Calcium 8.9 mg/dL (8.4-10.2) 09/08/19 04:00 Medications & Allergies - Medications Allergies/Adverse Reactions: Allergies Penicillins Allergy (Verified 02/06/17 13:29) Rash corn Adverse Reaction (Verified 05/14/19 15:01) Unknown Home Medications: Home Medications Medication Instructions Recorded Confirmed Last Taken Type clonazePAM [KlonoPIN] 0.5 mg PO QHS #14 tablet 05/22/19 09/07/19 Unknown Rx Divalproex ER [Depakote ER] 1,500 mg PO HS 05/29/19 09/07/19 Unknown History Divalproex ER [Depakote ER] 500 mg PO QAM 05/29/19 09/07/19 Unknown History Acetaminophen [Acetaminophen TAB] 650 mg PO Q4H PRN tablet 06/03/19 09/07/19 Unknown Rx Calcium Acetate [Phoslo] 667 mg PO TID 08/20/19 09/07/19 Unknown History LORazepam [Ativan] 1 mg PO BID 08/20/19 09/07/19 Unknown History Memantine Xr [Namenda Xr] 5 mg PO DAILY 08/20/19 09/07/19 Unknown History Midodrine [Proamatine] 10 mg PO TID 08/20/19 09/07/19 Unknown History QUEtiapine [SEROquel] 400 mg PO QHS 08/20/19 09/07/19 Unknown History Active Medications: Generic Name Dose Route Start Last Admin Trade Name Freq PRN Reason Stop Dose Admin Acetaminophen 650 mg 09/07/19 18:42 Tylenol PO Q4H PRN Pain MILD(1-3)/Fever >100.5/DRAKE Calcium Acetate 667 mg 09/07/19 20:00 09/10/19 08:26 Phoslo PO 667 mg TID CONNOR Administration Divalproex Sodium 500 mg 09/08/19 10:00 09/09/19 10:08 Depakote Er PO 500 mg QAM CONNOR Administration Divalproex Sodium 1,500 mg 09/07/19 22:00 09/09/19 21:03 Depakote Er PO 1,500 mg HS CONNOR Administration Epoetin Lb 10,000 unit 09/08/19 12:32 Procrit IV BIANCA PRN hemodialysis Famotidine 10 mg 09/07/19 22:00 09/09/19 10:07 Pepcid PO 10 mg DAILY CONNOR Administration Heparin Sodium (Porcine) 5,000 unit 09/07/19 22:00 09/09/19 21:04 Heparin SUB-Q 5,000 unit Q12HR CONNOR Administration Heparin Sodium (Porcine) 3,000 unit 09/08/19 12:32 Heparin 10,000 Units/10 Ml IV BIANCA PRN hemodialysis Hydromorphone HCl 0.25 mg 09/07/19 18:44 09/08/19 06:15 Dilaudid IV 0.25 mg Q3H PRN Administration Pain, Moderate (4-6) Norepinephrine 4 mg in 250 mls @ 7.5 mls/hr 09/07/19 18:00 09/10/19 05:05 Levophed Drip 4 Mg/Ns 250 Ml IV 8 mcg/min TITR CONNOR 30 mls/hr Administration Protocol 2 MCG/MIN Cefepime HCl 1 gm in 100 mls @ 200 mls/hr 09/07/19 20:00 09/09/19 20:55 Cefepime/Ns 1 Gm/100 Ml IV 200 mls/hr Q24H CONNOR Administration Protocol Sodium Chloride 100 mls @ 999 mls/hr 09/08/19 12:32 Nacl 0.9% IV BIANCA PRN Hypotension Lorazepam 1 mg 09/07/19 22:00 09/09/19 21:02 Ativan PO 1 mg BID CONNOR Administration Memantine 5 mg 09/08/19 10:00 09/09/19 10:07 Memantine PO 5 mg DAILY CONNOR Administration Midodrine 10 mg 09/07/19 20:00 09/10/19 08:26 Proamatine PO 10 mg TID CONNOR Administration Ondansetron HCl 4 mg 09/07/19 18:44 Zofran IV Q8H PRN Nausea And Vomiting Paricalcitol 0.5 mcg 09/08/19 12:32 Zemplar IV BIANCA PRN hemodialysis Quetiapine Fumarate 400 mg 09/07/19 22:00 09/09/19 21:02 Seroquel PO 400 mg QHS CONNOR Administration Sodium Chloride 10 ml 09/07/19 22:00 09/09/19 21:04 Sodium Chloride Flush Syringe 10 Ml IV 10 ml BID CONNOR Administration Sodium Chloride 10 ml 09/07/19 18:44 Sodium Chloride Flush Syringe 10 Ml IV PRN PRN LINE FLUSH
[2019-09-10] MEDS: HEPARIN 5,000 UNIT/1 ML VIAL SUB-Q SCH ×2 (10:11→21:09)
[2019-09-10] MEDS: MEMANTINE 5 MG TAB PO SCH (10:11)
[2019-09-10] MEDS: LORazepam 1 MG TAB PO SCH ×2 (10:11→21:08)
[2019-09-10] MEDS: FAMOTIDINE 10 MG TAB PO SCH (10:11)
[2019-09-10] MEDS: DIVALPROEX ER 500 MG TAB PO SCH ×2 (10:11→21:09)
--- NOTE | 2019-09-10 10:48 | Progress Note ---
Assessment and Plan Critical care time 40 minutes - Patient Problems (1) Septic shock Current Visit: Yes Status: Acute Plan to address problem: Patient is in septic shock Secondary to urinary tract infection Patient initiated on IV cefepime and vancomycin pending cultures Was given aztreonam in the ER. Patient has penicillin allergy but there should not be be much cross-reactivity with cefepime IV vancomycin was initiated Continue pressors (2) Acute encephalopathy Current Visit: Yes Status: Acute Plan to address problem: Sec to sepsis Uremia and UTi Improved (3) ESRD (end stage renal disease) on dialysis Current Visit: Yes Status: Chronic Plan to address problem: Nephrology consulted Continue hemodialysis as per schedule Less ultrafiltration because of hyper tension (4) UTI (urinary tract infection) Current Visit: Yes Status: Acute Qualifiers: Urinary tract infection type: acute cystitis Plan to address problem: IV cefepime for now and vancomycin (5) Hypotension Current Visit: No Status: Acute Qualifiers: Hypotension type: unspecified hypotension type Qualified Code(s): I95.9 - Hypotension, unspecified Plan to address problem: IV fluids and pressors Still on pressors (6) Sacral decubitus ulcer Current Visit: Yes Status: Chronic Plan to address problem: Wound care consult requested (7) Seizure disorder Current Visit: Yes Status: Acute Plan to address problem: Continue Depakote Check Depakote level (8) Tremors of nervous system Current Visit: Yes Status: Chronic Plan to address problem: Possible Parkinson's Neurology consulted (9) Schizophrenia Current Visit: Yes Status: Chronic Qualifiers: Schizophrenia type: unspecified Qualified Code(s): F20.9 - Schizophrenia, unspecified Plan to address problem: On Seroquel. Continue Seroquel (10) DVT prophylaxis Current Visit: Yes Status: Acute Plan to address problem: On heparin and GI prophylaxis Subjective Date of service: 09/10/19 Principal diagnosis: Septic shock, ESRD, sacral decubitus ulcer Interval history: 64-year-old female with multiple medical problems presents with high temperature of 101.9 and low blood pressure from the care home. Patient also has altered mental status. Lethargic. Patient has end-stage renal disease with dialysis on Sunday, hypertension, drug-induced dyskinesia and dystonia, seizures, anxiety and hyperparathyroidism. In the emergency room patient blood pressure was ranging from 70/50 to 90/60. Central line was placed for possible use of pressors. Source of infection is urine which shows WBCs more than 182. Patient has a heart rate of 140. Patient also has tremors in both hands at rest. Symptomatically better but still on pressors Objective - Constitutional Vitals: Vital Signs - 12hr 09/10/19 09/10/19 09/10/19 00:00 04:00 08:00 Temperature 97.6 F 97.1 F L 97.9 F Pulse Rate 82 82 63 Pulse Rate [ 63 From Monitor] Respiratory 14 14 15 Rate O2 Sat by Pulse 95 95 92 Oximetry General appearance: Present: no acute distress, well-nourished - EENT Eyes: PERRL, EOM intact ENT: hearing intact, clear oral mucosa Ears: bilateral: normal - Neck Neck: supple, normal ROM - Respiratory Respiratory effort: normal Respiratory: bilateral: CTA - Breasts Breasts: normal - Cardiovascular Rhythm: regular Heart Sounds: Present: S1 & S2. Absent: gallop, rub Extremities: pulses intact, No edema, normal color, Full ROM Extremity abnormal: other (Sacral decubitus ulcers stage IV) - Gastrointestinal General gastrointestinal: Present: soft, non-tender, non-distended, normal bowel sounds Rectal Exam: deferred - Genitourinary Female genitourinary: normal - Integumentary Integumentary: clear, warm, dry - Musculoskeletal Musculoskeletal: strength equal bilaterally, generalized weakness - Neurologic Neurologic: moves all extremities - Psychiatric Psychiatric: memory intact, appropriate mood/affect, intact judgment & insight - Allied health notes Allied health notes reviewed: nursing, case management - Labs CBC & Chem 7: 09/08/19 04:00 09/08/19 04:00 Labs: Abnormal lab results 09/10/19 Range/Units 05:19 POC Glucose 163 H (70-105)
--- NOTE | 2019-09-10 15:32 | Progress Note ---
Assessment and Plan Septic from UTI Hypotension chronic versus related to sepsis Altered mental status possible metabolic encephalopathy vs ICU psychosis. 1. Continue broad spec abx therapy 2. Follow up cultures 3. May require Haldol if psychosis worsened total critical care time 31 minute 4. Wean for MAPS >60, unsure of what baseline BP is but patient is on midodrine at home total critical care time 31 minute Subjective Date of service: 09/10/19 Principal diagnosis: Septic shock, ESRD, sacral decubitus ulcer Interval history: Patient is confused and disoriented. Complain of being cold and some chills but does not have any fever. BP remains low still on levophed Objective Vital Signs - 12hr 09/10/19 09/10/19 09/10/19 03:41 03:51 04:00 Temperature 97.1 F L Pulse Rate 90 93 H 94 H Pulse Rate [ From Monitor] Respiratory 10 L 13 13 Rate Blood Pressure 101/53 109/62 89/46 O2 Sat by Pulse 83 L 86 90 Oximetry 09/10/19 09/10/19 09/10/19 04:11 04:21 04:30 Temperature Pulse Rate 87 99 H 86 Pulse Rate [ From Monitor] Respiratory 12 14 11 L Rate Blood Pressure 109/62 93/48 86/46 O2 Sat by Pulse 98 89 93 Oximetry 09/10/19 09/10/19 09/10/19 04:41 04:51 05:00 Temperature Pulse Rate 88 78 74 Pulse Rate [ From Monitor] Respiratory 14 11 L 13 Rate Blood Pressure 89/46 90/49 92/51 O2 Sat by Pulse 93 99 96 Oximetry 09/10/19 09/10/19 09/10/19 05:11 05:21 05:30 Temperature Pulse Rate 83 77 77 Pulse Rate [ From Monitor] Respiratory 14 9 L 10 L Rate Blood Pressure 92/51 98/53 111/50 O2 Sat by Pulse 89 89 98 Oximetry 09/10/19 09/10/19 09/10/19 05:41 05:51 06:00 Temperature Pulse Rate 71 73 74 Pulse Rate [ From Monitor] Respiratory 11 L 10 L 9 L Rate Blood Pressure 111/50 105/51 102/53 O2 Sat by Pulse 100 96 99 Oximetry 09/10/19 09/10/19 09/10/19 06:11 06:21 06:30 Temperature Pulse Rate 73 72 73 Pulse Rate [ From Monitor] Respiratory 9 L 8 L 12 Rate Blood Pressure 102/53 103/50 112/54 O2 Sat by Pulse 100 100 100 Oximetry 09/10/19 09/10/19 09/10/19 06:41 06:51 07:00 Temperature Pulse Rate 71 89 69 Pulse Rate [ From Monitor] Respiratory 11 L 18 11 L Rate Blood Pressure 112/54 111/49 118/43 O2 Sat by Pulse 100 98 100 Oximetry 09/10/19 09/10/19 09/10/19 07:11 07:21 07:30 Temperature Pulse Rate 70 77 67 Pulse Rate [ From Monitor] Respiratory 12 12 12 Rate Blood Pressure 118/43 100/49 106/44 O2 Sat by Pulse 100 100 100 Oximetry 09/10/19 09/10/19 09/10/19 07:41 07:51 08:00 Temperature 97.9 F Pulse Rate 66 71 67 Pulse Rate [ 63 From Monitor] Respiratory 13 12 13 Rate Blood Pressure 106/44 107/41 98/41 O2 Sat by Pulse 100 100 100 Oximetry 09/10/19 09/10/19 09/10/19 08:11 08:21 08:31 Temperature Pulse Rate 79 91 H 91 H Pulse Rate [ From Monitor] Respiratory 18 15 15 Rate Blood Pressure 98/41 88/48 79/55 O2 Sat by Pulse 100 100 97 Oximetry 09/10/19 09/10/19 09/10/19 08:41 08:51 09:01 Temperature Pulse Rate 90 84 79 Pulse Rate [ From Monitor] Respiratory 13 13 16 Rate Blood Pressure 79/55 96/54 106/38 O2 Sat by Pulse 87 97 100 Oximetry 09/10/19 09/10/19 09/10/19 09:11 09:21 09:31 Temperature Pulse Rate 79 69 88 Pulse Rate [ From Monitor] Respiratory 12 12 16 Rate Blood Pressure 106/38 100/41 93/46 O2 Sat by Pulse 99 100 91 Oximetry 09/10/19 09/10/19 09/10/19 09:41 09:51 10:00 Temperature Pulse Rate 75 68 66 Pulse Rate [ From Monitor] Respiratory 14 14 14 Rate Blood Pressure 93/46 100/44 88/39 O2 Sat by Pulse 96 100 100 Oximetry 09/10/19 09/10/19 09/10/19 10:11 10:21 10:30 Temperature Pulse Rate 92 H 91 H 88 Pulse Rate [ From Monitor] Respiratory 13 13 12 Rate Blood Pressure 102/36 91/66 93/61 O2 Sat by Pulse 97 94 Oximetry 09/10/19 09/10/19 09/10/19 10:41 10:51 11:00 Temperature Pulse Rate 81 76 71 Pulse Rate [ From Monitor] Respiratory 14 16 9 L Rate Blood Pressure 93/61 106/85 90/50 O2 Sat by Pulse 96 90 99 Oximetry 09/10/19 09/10/19 09/10/19 11:11 11:21 11:30 Temperature Pulse Rate 73 65 65 Pulse Rate [ From Monitor] Respiratory 11 L 13 16 Rate Blood Pressure 90/50 104/44 114/53 O2 Sat by Pulse 100 100 100 Oximetry 09/10/19 09/10/19 09/10/19 11:41 11:50 12:00 Temperature 97.9 F Pulse Rate 69 62 60 Pulse Rate [ 60 From Monitor] Respiratory 14 14 15 Rate Blood Pressure 114/53 91/41 93/42 O2 Sat by Pulse 100 100 100 Oximetry 09/10/19 09/10/19 09/10/19 12:11 12:21 12:30 Temperature Pulse Rate 63 60 59 L Pulse Rate [ From Monitor] Respiratory 15 13 14 Rate Blood Pressure 93/42 91/41 80/35 O2 Sat by Pulse 100 100 100 Oximetry 09/10/19 09/10/19 09/10/19 12:41 12:51 13:00 Temperature Pulse Rate 56 L 58 L 72 Pulse Rate [ From Monitor] Respiratory 14 15 16 Rate Blood Pressure 80/35 100/48 107/46 O2 Sat by Pulse 100 100 100 Oximetry 09/10/19 09/10/19 09/10/19 13:11 13:21 13:30 Temperature Pulse Rate 70 69 65 Pulse Rate [ From Monitor] Respiratory 11 L 10 L 10 L Rate Blood Pressure 107/46 114/60 112/71 O2 Sat by Pulse 100 98 100 Oximetry 09/10/19 09/10/19 09/10/19 13:41 13:51 14:00 Temperature Pulse Rate 62 62 63 Pulse Rate [ From Monitor] Respiratory 14 15 14 Rate Blood Pressure 112/71 126/54 120/53 O2 Sat by Pulse 100 100 100 Oximetry 09/10/19 09/10/19 09/10/19 14:11 14:21 14:31 Temperature Pulse Rate 63 83 84 Pulse Rate [ From Monitor] Respiratory 16 12 12 Rate Blood Pressure 120/53 124/64 113/56 O2 Sat by Pulse 100 100 100 Oximetry 09/10/19 09/10/19 14:41 14:51 Temperature Pulse Rate 72 96 H Pulse Rate [ From Monitor] Respiratory 14 12 Rate Blood Pressure 113/56 124/64 O2 Sat by Pulse 97 99 Oximetry Constitutional: alert, other (critically ill on pressors) Eyes: non-icteric ENT: oropharynx moist Neck: supple Effort: normal Ascultation: Bilateral: clear Cardiovascular: regular rate and rhythm (no mrg) Gastrointestinal: normoactive bowel sounds, soft, non-tender, non-distended, other (benign exam) Extremities: no cyanosis, no edema, pink and warm Neurologic: normal mental status, non-focal exam, pupils equal and round Psychiatric: mood appropriate, affect normal CBC and BMP: 09/08/19 04:00 09/08/19 04:00 Abnormal lab findings: Abnormal Labs 09/07/19 09/07/19 09/07/19 12:45 12:45 13:45 WBC RBC Hgb Hct RDW Lymph % (Auto) [place] % (Auto) Lymph # [place] # Seg Neutrophils % Seg Neutrophils # Potassium 3.3 L Chloride Carbon Dioxide 18 L BUN 25 H Creatinine 5.6 H Glucose 129 H POC Glucose Lactic Acid 2.70 H* Total Protein 5.1 L Albumin 2.2 L Urine WBC (Auto) > 182.0 H Valproic Acid 09/07/19 09/07/19 09/08/19 15:38 20:10 04:00 WBC 13.2 H RBC 3.07 L 2.79 L Hgb 8.6 L 8.1 L Hct 28.8 L 25.5 L RDW 20.4 H 20.4 H Lymph % (Auto) 3.3 L 5.2 L [place] % (Auto) 15.6 H Lymph # 0.4 L 0.6 L [place] # 2.1 H Seg Neutrophils % 80.8 H 87.1 H Seg Neutrophils # 10.7 H 9.5 H Potassium Chloride Carbon Dioxide BUN Creatinine Glucose POC Glucose Lactic Acid Total Protein Albumin Urine WBC (Auto) Valproic Acid < 2.8 L 09/08/19 09/10/19 04:00 05:19 WBC RBC Hgb Hct RDW Lymph % (Auto) [place] % (Auto) Lymph # [place] # Seg Neutrophils % Seg Neutrophils # Potassium Chloride 109.1 H Carbon Dioxide 15 L BUN 33 H Creatinine 5.5 H Glucose 137 H POC Glucose 163 H Lactic Acid Total Protein 5.6 L Albumin 2.4 L Urine WBC (Auto) Valproic Acid
[2019-09-10] MEDS: CEFEPIME/NS 1 GM/100 ML 1 GM/100 ML BAG IV SCH (21:07)
[2019-09-10] MEDS: QUEtiapine 200 MG TAB PO SCH (21:09)
[2019-09-11] MEDS: NORepinephrine/NS 4 MG-250 ML 4 MG/250 ML BAG IV SCH ×2 (00:08→07:26)
[2019-09-11 06:18] LABS: Basophils % (Auto) 0.8 % (0.0-1.8); Eosinophils # (Auto) 0.1 K/mm3 (0.0-0.4); Eosinophils % (Auto) 3.2 % (0.0-4.3); Hematocrit 23.5 % (30.3-42.9); Hemoglobin 7.4 gm/dl (10.1-14.3); Lymphocytes # (Auto) 1.3 K/mm3 (1.2-5.4); Lymphocytes % (Auto) 39.7 % (13.4-35.0); Mean Corpuscular HGB Conc 31 % (30-34); Mean Corpuscular Volume 89 fl (79-97); Monocytes # (Auto) 0.2 K/mm3 (0.0-0.8); Monocytes % (Auto) 6.9 % (0.0-7.3); Platelet Count 164 K/mm3 (140-440); Red Blood Count 2.63 M/mm3 (3.65-5.03)
[2019-09-11 06:41] LABS: Calcium 9.1 mg/dL (8.4-10.2)
[2019-09-11] MEDS: CALCIUM ACETATE 667 MG CAP PO SCH ×3 (07:28→19:29)
[2019-09-11] MEDS: MIDODRINE 5 MG TAB PO SCH ×3 (07:28→19:29)
[2019-09-11] MEDS: HEPARIN 5,000 UNIT/1 ML VIAL SUB-Q SCH ×2 (10:01→22:17)
[2019-09-11] MEDS: LORazepam 1 MG TAB PO SCH ×2 (10:02→22:16)
[2019-09-11] MEDS: FAMOTIDINE 10 MG TAB PO SCH (10:02)
[2019-09-11] MEDS: DIVALPROEX ER 500 MG TAB PO SCH ×2 (10:02→22:16)
[2019-09-11] MEDS: MEMANTINE 5 MG TAB PO SCH (10:02)
[2019-09-11] MEDS ORDERED: NORepinephrine/NS 4 MG-250 ML 4 MG/250 ML BAG IV SCH (13:21)
[2019-09-11] MEDS: EPOETIN ALFA 10,000 UNIT/1 ML INJ IV PRN (15:33)
--- NOTE | 2019-09-11 17:05 | Progress Note ---
Assessment and Plan - Patient Problems (1) ESRD (end stage renal disease) on dialysis Current Visit: Yes Status: Chronic Plan to address problem: esrd on dialysis continue HD TTS (2) Anemia in chronic kidney disease Current Visit: No Status: Acute Plan to address problem: moderate anemia Hb: 7.4g/dl continue epogen. (3) Hypotension Current Visit: No Status: Acute Qualifiers: Hypotension type: unspecified hypotension type Qualified Code(s): I95.9 - Hypotension, unspecified Plan to address problem: Hypotension Will increase midodrine to 15mg tid patient has chronically low blood pressures. wean off levophed , goal Map should be around 60 not greater as long as patient is asymptomatic. (4) Hypokalemia Current Visit: Yes Status: Acute Plan to address problem: Will use 3K bath Please do not aggressively replete potassium in this patient who is often non coperative and can refuse dialysis Avoid Iatrogenic Hyperkalemia! Subjective Principal diagnosis: Septic shock, ESRD, sacral decubitus ulcer Interval history: 64 year old with ESRD on hemodialysis on Sun sat at [facility] admitted with AMS and hypotension patient seen today, denies any orthopnea or PND. Denies any edema denies any fever or chills. still confused , agitated asking for clinical resource coordinator and telling everyone to leave her alone Objective - Vital Signs Vital signs: Vital Signs - 12hr 09/11/19 09/11/19 09/11/19 05:11 05:21 05:30 Temperature Pulse Rate 84 85 76 Pulse Rate [ From Monitor] Respiratory 13 14 15 Rate Blood Pressure 101/48 108/48 115/57 O2 Sat by Pulse 95 94 96 Oximetry O2 Sat by Pulse Oximetry [ Anterior Bilateral Throughout] 09/11/19 09/11/19 09/11/19 05:41 05:51 06:00 Temperature Pulse Rate 79 72 84 Pulse Rate [ From Monitor] Respiratory 20 9 L 14 Rate Blood Pressure 115/57 91/44 88/36 O2 Sat by Pulse 93 97 93 Oximetry O2 Sat by Pulse Oximetry [ Anterior Bilateral Throughout] 09/11/19 09/11/19 09/11/19 06:11 06:21 06:31 Temperature Pulse Rate 80 88 90 Pulse Rate [ From Monitor] Respiratory 15 19 19 Rate Blood Pressure 88/36 85/31 108/64 O2 Sat by Pulse 87 96 91 Oximetry O2 Sat by Pulse Oximetry [ Anterior Bilateral Throughout] 09/11/19 09/11/19 09/11/19 06:41 06:51 07:00 Temperature Pulse Rate 108 H 76 71 Pulse Rate [ From Monitor] Respiratory 18 16 14 Rate Blood Pressure 108/64 109/49 92/41 O2 Sat by Pulse 80 L 96 98 Oximetry O2 Sat by Pulse Oximetry [ Anterior Bilateral Throughout] 09/11/19 09/11/19 09/11/19 07:11 07:21 07:30 Temperature Pulse Rate 75 67 70 Pulse Rate [ From Monitor] Respiratory 18 16 17 Rate Blood Pressure 92/41 104/57 118/55 O2 Sat by Pulse 100 98 96 Oximetry O2 Sat by Pulse Oximetry [ Anterior Bilateral Throughout] 09/11/19 09/11/19 09/11/19 07:41 07:51 08:00 Temperature 97.5 F L Pulse Rate 69 72 68 Pulse Rate [ 72 From Monitor] Respiratory 10 L 16 16 Rate Blood Pressure 118/55 118/47 123/58 O2 Sat by Pulse 96 93 94 Oximetry O2 Sat by Pulse Oximetry [ Anterior Bilateral Throughout] 09/11/19 09/11/19 09/11/19 08:11 08:21 08:30 Temperature Pulse Rate 77 74 84 Pulse Rate [ From Monitor] Respiratory 12 18 15 Rate Blood Pressure 123/58 119/63 123/63 O2 Sat by Pulse 99 99 90 Oximetry O2 Sat by Pulse Oximetry [ Anterior Bilateral Throughout] 09/11/19 09/11/19 09/11/19 08:41 08:51 09:00 Temperature Pulse Rate 78 84 86 Pulse Rate [ From Monitor] Respiratory 18 18 16 Rate Blood Pressure 123/63 119/63 108/60 O2 Sat by Pulse 99 88 92 Oximetry O2 Sat by Pulse Oximetry [ Anterior Bilateral Throughout] 09/11/19 09/11/19 09/11/19 09:11 09:21 09:30 Temperature Pulse Rate 87 92 H 94 H Pulse Rate [ From Monitor] Respiratory 12 17 15 Rate Blood Pressure 108/60 104/42 111/45 O2 Sat by Pulse 88 96 91 Oximetry O2 Sat by Pulse Oximetry [ Anterior Bilateral Throughout] 09/11/19 09/11/19 09/11/19 09:41 09:51 10:00 Temperature Pulse Rate 88 74 71 Pulse Rate [ From Monitor] Respiratory 14 17 15 Rate Blood Pressure 111/45 93/41 100/45 O2 Sat by Pulse 98 100 97 Oximetry O2 Sat by Pulse Oximetry [ Anterior Bilateral Throughout] 09/11/19 09/11/19 09/11/19 10:11 10:21 10:30 Temperature Pulse Rate 90 82 74 Pulse Rate [ From Monitor] Respiratory 13 13 16 Rate Blood Pressure 100/45 108/44 104/44 O2 Sat by Pulse 93 94 97 Oximetry O2 Sat by Pulse Oximetry [ Anterior Bilateral Throughout] 09/11/19 09/11/19 09/11/19 10:41 10:51 11:00 Temperature Pulse Rate 72 67 67 Pulse Rate [ From Monitor] Respiratory 16 15 15 Rate Blood Pressure 104/44 93/42 85/39 O2 Sat by Pulse 99 100 100 Oximetry O2 Sat by Pulse Oximetry [ Anterior Bilateral Throughout] 09/11/19 09/11/19 09/11/19 11:11 11:21 11:30 Temperature Pulse Rate 66 82 71 Pulse Rate [ From Monitor] Respiratory 14 12 17 Rate Blood Pressure 85/39 86/38 107/51 O2 Sat by Pulse 100 96 93 Oximetry O2 Sat by Pulse Oximetry [ Anterior Bilateral Throughout] 09/11/19 09/11/19 09/11/19 11:41 11:51 12:00 Temperature 98.5 F Pulse Rate 67 65 66 Pulse Rate [ 67 From Monitor] Respiratory 28 H 16 33 H Rate Blood Pressure 107/51 110/49 108/49 O2 Sat by Pulse 99 98 100 Oximetry O2 Sat by Pulse Oximetry [ Anterior Bilateral Throughout] 09/11/19 09/11/19 09/11/19 12:11 12:21 12:30 Temperature Pulse Rate 65 63 62 Pulse Rate [ From Monitor] Respiratory 33 H 22 16 Rate Blood Pressure 108/49 105/47 107/47 O2 Sat by Pulse 100 100 100 Oximetry O2 Sat by Pulse Oximetry [ Anterior Bilateral Throughout] 09/11/19 09/11/19 09/11/19 12:41 12:51 13:00 Temperature 98.5 F Pulse Rate 62 74 69 Pulse Rate [ From Monitor] Respiratory 16 11 L 17 Rate Blood Pressure 107/47 103/50 107/61 O2 Sat by Pulse 100 100 Oximetry O2 Sat by Pulse 98 Oximetry [ Anterior Bilateral Throughout] 09/11/19 09/11/19 09/11/19 13:01 13:10 13:15 Temperature Pulse Rate 69 68 70 Pulse Rate [ From Monitor] Respiratory 17 17 Rate Blood Pressure 107/61 115/51 116/61 O2 Sat by Pulse 97 98 Oximetry O2 Sat by Pulse Oximetry [ Anterior Bilateral Throughout] 09/11/19 09/11/19 09/11/19 13:21 13:30 13:41 Temperature Pulse Rate 69 72 77 Pulse Rate [ From Monitor] Respiratory 15 14 14 Rate Blood Pressure 116/61 110/46 110/46 O2 Sat by Pulse 98 98 99 Oximetry O2 Sat by Pulse Oximetry [ Anterior Bilateral Throughout] 09/11/19 09/11/19 09/11/19 13:45 13:51 14:00 Temperature Pulse Rate 74 82 82 Pulse Rate [ From Monitor] Respiratory 17 18 Rate Blood Pressure 110/53 110/53 96/49 O2 Sat by Pulse 98 100 Oximetry O2 Sat by Pulse Oximetry [ Anterior Bilateral Throughout] 09/11/19 09/11/19 09/11/19 14:11 14:15 14:21 Temperature Pulse Rate 80 81 81 Pulse Rate [ From Monitor] Respiratory 16 14 Rate Blood Pressure 96/49 92/49 92/49 O2 Sat by Pulse 100 95 Oximetry O2 Sat by Pulse Oximetry [ Anterior Bilateral Throughout] 09/11/19 09/11/19 09/11/19 14:30 14:31 14:41 Temperature Pulse Rate 83 81 82 Pulse Rate [ From Monitor] Respiratory 12 17 Rate Blood Pressure 105/54 105/54 105/54 O2 Sat by Pulse 78 L 100 Oximetry O2 Sat by Pulse Oximetry [ Anterior Bilateral Throughout] 09/11/19 09/11/19 09/11/19 14:46 14:51 15:00 Temperature Pulse Rate 82 90 85 Pulse Rate [ From Monitor] Respiratory 11 L 15 Rate Blood Pressure 94/55 94/55 100/53 O2 Sat by Pulse 95 98 Oximetry O2 Sat by Pulse Oximetry [ Anterior Bilateral Throughout] 09/11/19 09/11/19 09/11/19 15:01 15:11 15:15 Temperature Pulse Rate 84 89 89 Pulse Rate [ From Monitor] Respiratory 13 Rate Blood Pressure 100/53 100/53 95/53 O2 Sat by Pulse 92 Oximetry O2 Sat by Pulse Oximetry [ Anterior Bilateral Throughout] 09/11/19 09/11/19 09/11/19 15:21 15:30 15:41 Temperature Pulse Rate 93 H 91 H 95 H Pulse Rate [ From Monitor] Respiratory 15 9 L 12 Rate Blood Pressure 95/53 91/55 91/55 O2 Sat by Pulse 97 95 Oximetry O2 Sat by Pulse Oximetry [ Anterior Bilateral Throughout] 09/11/19 09/11/19 09/11/19 15:45 15:50 16:00 Temperature Pulse Rate 91 H 93 H 96 H Pulse Rate [ From Monitor] Respiratory 10 L 12 Rate Blood Pressure 97/56 97/56 93/63 O2 Sat by Pulse 96 95 Oximetry O2 Sat by Pulse Oximetry [ Anterior Bilateral Throughout] 09/11/19 09/11/19 09/11/19 16:11 16:21 16:30 Temperature Pulse Rate 86 84 87 Pulse Rate [ From Monitor] Respiratory 10 L 10 L 11 L Rate Blood Pressure 93/63 99/57 99/50 O2 Sat by Pulse 97 93 93 Oximetry O2 Sat by Pulse Oximetry [ Anterior Bilateral Throughout] 09/11/19 16:41 Temperature Pulse Rate 87 Pulse Rate [ From Monitor] Respiratory 23 Rate Blood Pressure 99/50 O2 Sat by Pulse 84 Oximetry O2 Sat by Pulse Oximetry [ Anterior Bilateral Throughout] - General Appearance General appearance: well-developed, well-nourished EENT: ATNC, PERRL Neck: no JVD Respiratory: Present: Clear to Ascultation Cardiology: regular, S1S2 Gastrointestinal: normal, normoactive bowel sounds Integumentary: no rash Neurologic: no focal deficit, confused Psychiatric: agitated, paranoid ideation - Lab 09/11/19 06:00 09/11/19 06:00 Most recent lab results Calcium 9.1 mg/dL (8.4-10.2) 09/11/19 06:00 - Imaging Chest x-ray: image reviewed Medications & Allergies - Medications Allergies/Adverse Reactions: Allergies Penicillins Allergy (Verified 02/06/17 13:29) Rash corn Adverse Reaction (Verified 05/14/19 15:01) Unknown Home Medications: Home Medications Medication Instructions Recorded Confirmed Last Taken Type clonazePAM [KlonoPIN] 0.5 mg PO QHS #14 tablet 05/22/19 09/07/19 Unknown Rx Divalproex ER [Depakote ER] 1,500 mg PO HS 05/29/19 09/07/19 Unknown History Divalproex ER [Depakote ER] 500 mg PO QAM 05/29/19 09/07/19 Unknown History Acetaminophen [Acetaminophen TAB] 650 mg PO Q4H PRN tablet 06/03/19 09/07/19 Unknown Rx Calcium Acetate [Phoslo] 667 mg PO TID 08/20/19 09/07/19 Unknown History LORazepam [Ativan] 1 mg PO BID 08/20/19 09/07/19 Unknown History Memantine Xr [Namenda Xr] 5 mg PO DAILY 08/20/19 09/07/19 Unknown History Midodrine [Proamatine] 10 mg PO TID 08/20/19 09/07/19 Unknown History QUEtiapine [SEROquel] 400 mg PO QHS 08/20/19 09/07/19 Unknown History Active Medications: Generic Name Dose Route Start Last Admin Trade Name Preetq PRN Reason Stop Dose Admin Acetaminophen 650 mg 09/07/19 18:42 Tylenol PO Q4H PRN Pain MILD(1-3)/Fever >100.5/DRAKE Calcium Acetate 667 mg 09/07/19 20:00 09/11/19 07:28 Phoslo PO 667 mg TID [facility] Administration Divalproex Sodium 500 mg 09/08/19 10:00 09/11/19 10:02 Depakote Er PO 500 mg QAM [facility] Administration Divalproex Sodium 1,500 mg 09/07/19 22:00 09/10/19 21:09 Depakote Er PO 1,500 mg HS [facility] Administration Epoetin Lb 10,000 unit 09/08/19 12:32 09/11/19 15:33 Procrit IV 10,000 unit BIANCA PRN Administration hemodialysis Famotidine 10 mg 09/07/19 22:00 09/11/19 10:02 Pepcid PO 10 mg DAILY [facility] Administration Heparin Sodium (Porcine) 5,000 unit 09/07/19 22:00 09/11/19 10:01 Heparin SUB-Q 5,000 unit Q12HR [facility] Administration Heparin Sodium (Porcine) 3,000 unit 09/08/19 12:32 Heparin 10,000 Units/10 Ml IV BIANCA PRN hemodialysis Hydromorphone HCl 0.25 mg 09/07/19 18:44 09/08/19 06:15 Dilaudid IV 0.25 mg Q3H PRN Administration Pain, Moderate (4-6) Cefepime HCl 1 gm in 100 mls @ 200 mls/hr 12/22/19 20:00 09/10/19 21:07 Cefepime/Ns 1 Gm/100 Ml IV 200 mls/hr Q24H [facility] Administration Protocol Sodium Chloride 100 mls @ 999 mls/hr 09/08/19 12:32 Nacl 0.9% IV BIANCA PRN Hypotension Norepinephrine 4 mg in 250 mls @ 7.5 mls/hr 09/11/19 13:21 Levophed Drip 4 Mg/Ns 250 Ml IV TITR [facility] Protocol 2 MCG/MIN Lorazepam 1 mg 09/07/19 22:00 09/11/19 10:02 Ativan PO 1 mg BID [facility] Administration Memantine 5 mg 09/08/19 10:00 09/11/19 10:02 Memantine PO 5 mg DAILY [facility] Administration Midodrine 10 mg 09/07/19 20:00 09/11/19 07:28 Proamatine PO 10 mg TID [facility] Administration Ondansetron HCl 4 mg 09/07/19 18:44 Zofran IV Q8H PRN Nausea And Vomiting Paricalcitol 0.5 mcg 09/08/19 12:32 Zemplar IV BIANCA PRN hemodialysis Quetiapine Fumarate 400 mg 09/07/19 22:00 09/10/19 21:09 Seroquel PO 400 mg QHS [facility] Administration Sodium Chloride 10 ml 09/07/19 22:00 09/11/19 10:04 Sodium Chloride Flush Syringe 10 Ml IV 10 ml BID [facility] Administration Sodium Chloride 10 ml 09/07/19 18:44 09/11/19 10:03 Sodium Chloride Flush Syringe 10 Ml IV 10 ml PRN PRN Administration LINE FLUSH
[2019-09-11] MEDS: CEFEPIME/NS 1 GM/100 ML 1 GM/100 ML BAG IV SCH (19:29)
[2019-09-11] MEDS: QUEtiapine 200 MG TAB PO SCH (22:16)
--- NOTE | 2019-09-11 22:26 | Progress Note ---
Assessment and Plan Imp: 1. Pyuria -> probable UTI 2. Severe sepsis with septic shock 3. ESRD 4. Lactic acidosis 5. Mild L basilar atelectasis Rec: 1. Wean pressors to keep MAP > 65; cont. Midodrine; can tolerate MAP of 55 or > given chronic hypotension 2. Cultures negative; complete a course of Cefipime 3. HD per renal 4. SubQ heparin 5. Further plans pending clinical course 6. No PICC per renal 7. Complex decision-making Plan of care reviewed w/ patient, she understands/agrees; no family present Subjective Date of service: 09/11/19 Principal diagnosis: Septic shock, ESRD, sacral decubitus ulcer Interval history: No events. More alert and appropriate, calm. HD today. No SOB or pain. On low- dose Levophed as of around ~ noon when I saw her. Active Medications Acetaminophen (Tylenol) 650 mg PO Q4H PRN PRN Reason: Pain MILD(1-3)/Fever >100.5/DRAKE Calcium Acetate (Phoslo) 667 mg PO TID [facility] Last Admin: 09/11/19 19:29 Dose: 667 mg Documented by: Divalproex Sodium (Depakote Er) 500 mg PO QAM [facility] Last Admin: 09/11/19 10:02 Dose: 500 mg Documented by: Divalproex Sodium (Depakote Er) 1,500 mg PO HS [facility] Last Admin: 09/11/19 22:16 Dose: 1,500 mg Documented by: Epoetin Lb (Procrit) 10,000 unit IV BIANCA PRN PRN Reason: hemodialysis Last Admin: 09/11/19 15:33 Dose: 10,000 unit Documented by: Famotidine (Pepcid) 10 mg PO DAILY [facility] Last Admin: 09/11/19 10:02 Dose: 10 mg Documented by: Heparin Sodium (Porcine) (Heparin) 5,000 unit SUB-Q Q12HR [facility] Last Admin: 09/11/19 22:17 Dose: 5,000 unit Documented by: Heparin Sodium (Porcine) (Heparin 10,000 Units/10 Ml) 3,000 unit IV BIANCA PRN PRN Reason: hemodialysis Hydromorphone HCl (Dilaudid) 0.25 mg IV Q3H PRN PRN Reason: Pain, Moderate (4-6) Last Admin: 09/08/19 06:15 Dose: 0.25 mg Documented by: Cefepime HCl (Cefepime/Ns 1 Gm/100 Ml) 1 gm in 100 mls @ 200 mls/hr IV Q24H [facility]; Protocol Last Admin: 09/11/19 19:29 Dose: 200 mls/hr Documented by: Sodium Chloride (Nacl 0.9%) 100 mls @ 999 mls/hr IV BIANCA PRN PRN Reason: Hypotension Norepinephrine (Levophed Drip 4 Mg/Ns 250 Ml) 4 mg in 250 mls @ 7.5 mls/hr IV TITR [facility]; Protocol Last Titration: 09/11/19 19:00 Dose: 0 mcg/min, 0 mls/hr Documented by: Lorazepam (Ativan) 1 mg PO BID [facility] Last Admin: 09/11/19 22:16 Dose: 1 mg Documented by: Memantine (Memantine) 5 mg PO DAILY [facility] Last Admin: 09/11/19 10:02 Dose: 5 mg Documented by: Midodrine (Proamatine) 10 mg PO TID [facility] Last Admin: 09/11/19 19:29 Dose: 10 mg Documented by: Ondansetron HCl (Zofran) 4 mg IV Q8H PRN PRN Reason: Nausea And Vomiting Paricalcitol (Zemplar) 0.5 mcg IV BIANCA PRN PRN Reason: hemodialysis Quetiapine Fumarate (Seroquel) 400 mg PO QHS [facility] Last Admin: 09/11/19 22:16 Dose: 400 mg Documented by: Sodium Chloride (Sodium Chloride Flush Syringe 10 Ml) 10 ml IV BID [facility] Last Admin: 09/11/19 22:17 Dose: 10 ml Documented by: Sodium Chloride (Sodium Chloride Flush Syringe 10 Ml) 10 ml IV PRN PRN PRN Reason: LINE FLUSH Last Admin: 09/11/19 10:03 Dose: 10 ml Documented by: Objective Vital Signs - 12hr 09/11/19 09/11/19 09/11/19 10:30 10:41 10:51 Temperature Pulse Rate 74 72 67 Pulse Rate [ From Monitor] Respiratory 16 16 15 Rate Blood Pressure 104/44 104/44 93/42 O2 Sat by Pulse 97 99 100 Oximetry O2 Sat by Pulse Oximetry [ Anterior Bilateral Throughout] 09/11/19 09/11/19 09/11/19 11:00 11:11 11:21 Temperature Pulse Rate 67 66 82 Pulse Rate [ From Monitor] Respiratory 15 14 12 Rate Blood Pressure 85/39 85/39 86/38 O2 Sat by Pulse 100 100 96 Oximetry O2 Sat by Pulse Oximetry [ Anterior Bilateral Throughout] 09/11/19 09/11/19 09/11/19 11:30 11:41 11:51 Temperature Pulse Rate 71 67 65 Pulse Rate [ From Monitor] Respiratory 17 28 H 16 Rate Blood Pressure 107/51 107/51 110/49 O2 Sat by Pulse 93 99 98 Oximetry O2 Sat by Pulse Oximetry [ Anterior Bilateral Throughout] 09/11/19 09/11/19 09/11/19 12:00 12:11 12:21 Temperature 98.5 F Pulse Rate 66 65 63 Pulse Rate [ 67 From Monitor] Respiratory 33 H 33 H 22 Rate Blood Pressure 108/49 108/49 105/47 O2 Sat by Pulse 100 100 100 Oximetry O2 Sat by Pulse Oximetry [ Anterior Bilateral Throughout] 09/11/19 09/11/19 09/11/19 12:30 12:41 12:51 Temperature Pulse Rate 62 62 74 Pulse Rate [ From Monitor] Respiratory 16 16 11 L Rate Blood Pressure 107/47 107/47 103/50 O2 Sat by Pulse 100 100 100 Oximetry O2 Sat by Pulse Oximetry [ Anterior Bilateral Throughout] 09/11/19 09/11/19 09/11/19 13:00 13:01 13:10 Temperature 98.5 F Pulse Rate 69 69 68 Pulse Rate [ From Monitor] Respiratory 17 17 17 Rate Blood Pressure 107/61 107/61 115/51 O2 Sat by Pulse 97 98 Oximetry O2 Sat by Pulse 98 Oximetry [ Anterior Bilateral Throughout] 09/11/19 09/11/19 09/11/19 13:15 13:21 13:30 Temperature Pulse Rate 70 69 72 Pulse Rate [ From Monitor] Respiratory 15 14 Rate Blood Pressure 116/61 116/61 110/46 O2 Sat by Pulse 98 98 Oximetry O2 Sat by Pulse Oximetry [ Anterior Bilateral Throughout] 09/11/19 09/11/19 09/11/19 13:41 13:45 13:51 Temperature Pulse Rate 77 74 82 Pulse Rate [ From Monitor] Respiratory 14 17 Rate Blood Pressure 110/46 110/53 110/53 O2 Sat by Pulse 99 98 Oximetry O2 Sat by Pulse Oximetry [ Anterior Bilateral Throughout] 09/11/19 09/11/19 09/11/19 14:00 14:11 14:15 Temperature Pulse Rate 82 80 81 Pulse Rate [ From Monitor] Respiratory 18 16 Rate Blood Pressure 96/49 96/49 92/49 O2 Sat by Pulse 100 100 Oximetry O2 Sat by Pulse Oximetry [ Anterior Bilateral Throughout] 09/11/19 09/11/19 09/11/19 14:21 14:30 14:31 Temperature Pulse Rate 81 83 81 Pulse Rate [ From Monitor] Respiratory 14 12 Rate Blood Pressure 92/49 105/54 105/54 O2 Sat by Pulse 95 78 L Oximetry O2 Sat by Pulse Oximetry [ Anterior Bilateral Throughout] 09/11/19 09/11/19 09/11/19 14:41 14:46 14:51 Temperature Pulse Rate 82 82 90 Pulse Rate [ From Monitor] Respiratory 17 11 L Rate Blood Pressure 105/54 94/55 94/55 O2 Sat by Pulse 100 95 Oximetry O2 Sat by Pulse Oximetry [ Anterior Bilateral Throughout] 09/11/19 09/11/19 09/11/19 15:00 15:01 15:11 Temperature Pulse Rate 85 84 89 Pulse Rate [ From Monitor] Respiratory 15 13 Rate Blood Pressure 100/53 100/53 100/53 O2 Sat by Pulse 98 92 Oximetry O2 Sat by Pulse Oximetry [ Anterior Bilateral Throughout] 09/11/19 09/11/19 09/11/19 15:15 15:21 15:30 Temperature Pulse Rate 89 93 H 91 H Pulse Rate [ From Monitor] Respiratory 15 9 L Rate Blood Pressure 95/53 95/53 91/55 O2 Sat by Pulse 97 Oximetry O2 Sat by Pulse Oximetry [ Anterior Bilateral Throughout] 09/11/19 09/11/19 09/11/19 15:41 15:45 15:50 Temperature Pulse Rate 95 H 91 H 93 H Pulse Rate [ From Monitor] Respiratory 12 10 L Rate Blood Pressure 91/55 97/56 97/56 O2 Sat by Pulse 95 96 Oximetry O2 Sat by Pulse Oximetry [ Anterior Bilateral Throughout] 09/11/19 09/11/19 09/11/19 16:00 16:11 16:21 Temperature 98.7 F Pulse Rate 84 86 84 Pulse Rate [ 78 From Monitor] Respiratory 14 10 L 10 L Rate Blood Pressure 93/63 93/63 99/57 O2 Sat by Pulse 98 97 93 Oximetry O2 Sat by Pulse Oximetry [ Anterior Bilateral Throughout] 09/11/19 09/11/19 09/11/19 16:30 16:41 16:51 Temperature Pulse Rate 87 87 84 Pulse Rate [ From Monitor] Respiratory 11 L 23 13 Rate Blood Pressure 99/50 99/50 104/56 O2 Sat by Pulse 93 84 83 L Oximetry O2 Sat by Pulse Oximetry [ Anterior Bilateral Throughout] 09/11/19 09/11/19 09/11/19 17:00 17:11 17:21 Temperature Pulse Rate 90 91 H 94 H Pulse Rate [ From Monitor] Respiratory 15 14 12 Rate Blood Pressure 112/51 112/51 100/60 O2 Sat by Pulse 92 87 92 Oximetry O2 Sat by Pulse Oximetry [ Anterior Bilateral Throughout] 09/11/19 09/11/19 09/11/19 17:30 17:41 17:51 Temperature Pulse Rate 98 H 92 H 96 H Pulse Rate [ From Monitor] Respiratory 13 13 10 L Rate Blood Pressure 108/52 108/52 105/51 O2 Sat by Pulse 91 89 95 Oximetry O2 Sat by Pulse Oximetry [ Anterior Bilateral Throughout] 09/11/19 09/11/19 09/11/19 18:00 18:01 18:11 Temperature 98.7 F Pulse Rate 93 H 94 H Pulse Rate [ From Monitor] Respiratory 10 L 15 Rate Blood Pressure 120/97 108/52 O2 Sat by Pulse 95 90 Oximetry O2 Sat by Pulse Oximetry [ Anterior Bilateral Throughout] 09/11/19 09/11/19 09/11/19 18:21 18:30 18:41 Temperature Pulse Rate 95 H 87 85 Pulse Rate [ From Monitor] Respiratory 11 L 13 14 Rate Blood Pressure 110/57 104/55 120/97 O2 Sat by Pulse 99 99 99 Oximetry O2 Sat by Pulse Oximetry [ Anterior Bilateral Throughout] 09/11/19 09/11/19 09/11/19 18:51 19:01 19:11 Temperature Pulse Rate 79 83 83 Pulse Rate [ From Monitor] Respiratory 17 10 L 13 Rate Blood Pressure 98/47 93/46 93/46 O2 Sat by Pulse 100 94 96 Oximetry O2 Sat by Pulse Oximetry [ Anterior Bilateral Throughout] 09/11/19 09/11/19 09/11/19 19:21 19:30 19:41 Temperature Pulse Rate 83 84 80 Pulse Rate [ From Monitor] Respiratory 17 16 11 L Rate Blood Pressure 95/56 90/59 90/59 O2 Sat by Pulse 97 99 97 Oximetry O2 Sat by Pulse Oximetry [ Anterior Bilateral Throughout] 09/11/19 09/11/19 09/11/19 19:51 20:00 21:04 Temperature 98.3 F Pulse Rate 82 78 Pulse Rate [ 80 From Monitor] Respiratory 12 13 Rate Blood Pressure 100/36 109/47 O2 Sat by Pulse 97 97 100 Oximetry O2 Sat by Pulse Oximetry [ Anterior Bilateral Throughout] Constitutional: no acute distress, alert Eyes: non-icteric ENT: oropharynx moist Neck: supple Effort: normal Ascultation: Bilateral: clear Cardiovascular: regular rate and rhythm (no mrg) Gastrointestinal: normoactive bowel sounds, soft, non-tender, non-distended, other (benign exam) Extremities: no cyanosis, no edema, pink and warm Neurologic: normal mental status, non-focal exam, pupils equal and round Psychiatric: mood appropriate, affect normal CBC and BMP: 09/11/19 06:00 09/11/19 06:00 Abnormal lab findings: Abnormal Labs 09/07/19 09/07/19 09/07/19 12:45 12:45 13:45 WBC RBC Hgb Hct RDW Lymph % (Auto) Day % (Auto) Lymph # Day # Seg Neutrophils % Seg Neutrophils # Potassium 3.3 L Chloride Carbon Dioxide 18 L BUN 25 H Creatinine 5.6 H Glucose 129 H POC Glucose Lactic Acid 2.70 H* Total Protein 5.1 L Albumin 2.2 L Urine WBC (Auto) > 182.0 H Valproic Acid 09/07/19 09/07/19 09/08/19 15:38 20:10 04:00 WBC 13.2 H RBC 3.07 L 2.79 L Hgb 8.6 L 8.1 L Hct 28.8 L 25.5 L RDW 20.4 H 20.4 H Lymph % (Auto) 3.3 L 5.2 L Day % (Auto) 15.6 H Lymph # 0.4 L 0.6 L Day # 2.1 H Seg Neutrophils % 80.8 H 87.1 H Seg Neutrophils # 10.7 H 9.5 H Potassium Chloride Carbon Dioxide BUN Creatinine Glucose POC Glucose Lactic Acid Total Protein Albumin Urine WBC (Auto) Valproic Acid < 2.8 L 09/08/19 09/10/19 09/11/19 04:00 05:19 06:00 WBC 3.3 L RBC 2.63 L Hgb 7.4 L Hct 23.5 L RDW 20.0 H Lymph % (Auto) 39.7 H Day % (Auto) Lymph # Day # Seg Neutrophils % Seg Neutrophils # 1.6 L Potassium Chloride 109.1 H Carbon Dioxide 15 L BUN 33 H Creatinine 5.5 H Glucose 137 H POC Glucose 163 H Lactic Acid Total Protein 5.6 L Albumin 2.4 L Urine WBC (Auto) Valproic Acid 09/11/19 06:00 WBC RBC Hgb Hct RDW Lymph % (Auto) Day % (Auto) Lymph # Day # Seg Neutrophils % Seg Neutrophils # Potassium 3.3 L Chloride 109.7 H Carbon Dioxide 20 L BUN 28 H Creatinine 4.1 H Glucose 127 H POC Glucose Lactic Acid Total Protein Albumin Urine WBC (Auto) Valproic Acid Chest x-ray: report reviewed, image reviewed
[2019-09-12 05:37] LABS: Hematocrit 21.9 % (30.3-42.9); Mean Corpuscular HGB Conc 32 % (30-34); Mean Corpuscular Volume 89 fl (79-97); Platelet Count 120 K/mm3 (140-440); Red Blood Count 2.47 M/mm3 (3.65-5.03); Red Cell Distribution Width 19.7 % (13.2-15.2)
[2019-09-12 07:15] LABS: Total Cells Counted 100
[2019-09-12 07:16] LABS: Anisocytosis 2+; Basophils % (Manual) 0 % (0.0-1.8); Hypochromasia 1+; Macrocytosis 1+; Platelet Estimate Consistent w Auto; Target Cells 1+
--- NOTE | 2019-09-12 07:33 | Progress Note ---
Assessment and Plan Critical care time 40 minutes - Patient Problems (1) Septic shock Current Visit: Yes Status: Acute Plan to address problem: Patient is in septic shock Secondary to urinary tract infection Patient initiated on IV cefepime and vancomycin pending cultures Was given aztreonam in the ER. Patient has penicillin allergy but there should not be be much cross-reactivity with cefepime IV vancomycin was initiated Continue pressors (2) Acute encephalopathy Current Visit: Yes Status: Acute Plan to address problem: Sec to sepsis Uremia and UTi Improved (3) ESRD (end stage renal disease) on dialysis Current Visit: Yes Status: Chronic Plan to address problem: Nephrology consulted Continue hemodialysis as per schedule Less ultrafiltration because of hyper tension (4) UTI (urinary tract infection) Current Visit: Yes Status: Acute Qualifiers: Urinary tract infection type: acute cystitis Plan to address problem: IV cefepime for now and vancomycin (5) Hypotension Current Visit: No Status: Acute Qualifiers: Hypotension type: unspecified hypotension type Qualified Code(s): I95.9 - Hypotension, unspecified Plan to address problem: IV fluids and pressors Still on pressors (6) Sacral decubitus ulcer Current Visit: Yes Status: Chronic Plan to address problem: Wound care consult requested (7) Seizure disorder Current Visit: Yes Status: Acute Plan to address problem: Continue Depakote Check Depakote level (8) Tremors of nervous system Current Visit: Yes Status: Chronic Plan to address problem: Possible Parkinson's Neurology consulted (9) Schizophrenia Current Visit: Yes Status: Chronic Qualifiers: Schizophrenia type: unspecified Qualified Code(s): F20.9 - Schizophrenia, unspecified Plan to address problem: On Seroquel. Continue Seroquel (10) DVT prophylaxis Current Visit: Yes Status: Acute Plan to address problem: On heparin and GI prophylaxis Subjective Date of service: 09/11/19 Principal diagnosis: Septic shock, ESRD, sacral decubitus ulcer Interval history: 64-year-old female with multiple medical problems presents with high temperature of 101.9 and low blood pressure from the skilled nursing. Patient also has altered mental status. Lethargic. Patient has end-stage renal disease with dialysis on Sunday, hypertension, drug-induced dyskinesia and dystonia, seizures, anxiety and hyperparathyroidism. In the emergency room patient blood pressure was ranging from 70/50 to 90/60. Central line was placed for possible use of pressors. Source of infection is urine which shows WBCs more than 182. Patient has a heart rate of 140. Patient also has tremors in both hands at rest. Symptomatically better but still on pressors Objective - Constitutional Vitals: Vital Signs - 12hr 09/11/19 09/11/19 09/11/19 19:41 19:51 20:00 Temperature 98.3 F Pulse Rate 80 82 78 Pulse Rate [ 80 From Monitor] Respiratory 11 L 12 13 Rate Blood Pressure 90/59 100/36 109/47 O2 Sat by Pulse 97 97 97 Oximetry 09/11/19 09/11/19 09/11/19 20:11 20:21 20:30 Temperature Pulse Rate 80 75 77 Pulse Rate [ From Monitor] Respiratory 20 17 21 Rate Blood Pressure 95/56 116/41 111/39 O2 Sat by Pulse 100 99 99 Oximetry 09/11/19 09/11/19 09/11/19 20:41 20:51 21:01 Temperature Pulse Rate 72 68 67 Pulse Rate [ From Monitor] Respiratory 20 20 18 Rate Blood Pressure 111/39 103/37 84/35 O2 Sat by Pulse 100 100 100 Oximetry 09/11/19 09/11/19 09/11/19 21:04 21:11 21:21 Temperature Pulse Rate 69 68 Pulse Rate [ From Monitor] Respiratory 18 17 Rate Blood Pressure 103/37 74/35 O2 Sat by Pulse 100 100 100 Oximetry 09/11/19 09/11/19 09/11/19 21:31 21:41 21:51 Temperature Pulse Rate 80 75 74 Pulse Rate [ From Monitor] Respiratory 9 L 12 9 L Rate Blood Pressure 89/55 89/55 105/46 O2 Sat by Pulse 76 L 87 99 Oximetry 09/11/19 09/11/19 09/11/19 22:00 22:11 22:21 Temperature Pulse Rate 73 68 80 Pulse Rate [ From Monitor] Respiratory 18 19 14 Rate Blood Pressure 102/42 102/42 107/35 O2 Sat by Pulse 100 97 88 Oximetry 09/11/19 09/11/19 09/11/19 22:29 22:30 22:41 Temperature Pulse Rate 79 76 76 Pulse Rate [ From Monitor] Respiratory 14 15 14 Rate Blood Pressure 107/35 115/54 115/54 O2 Sat by Pulse 88 97 100 Oximetry 09/11/19 09/11/1909/11/19 22:51 23:00 23:11 Temperature Pulse Rate 81 87 100 H Pulse Rate [ From Monitor] Respiratory 10 L 21 12 Rate Blood Pressure 91/59 101/63 107/35 O2 Sat by Pulse 99 98 98 Oximetry 09/11/19 09/11/19 09/11/19 23:21 23:30 23:32 Temperature 98.3 F Pulse Rate 107 H 113 H Pulse Rate [ From Monitor] Respiratory 13 15 Rate Blood Pressure 97/55 104/50 O2 Sat by Pulse 97 97 Oximetry 09/11/19 09/11/19 09/12/19 23:41 23:51 00:00 Temperature Pulse Rate 128 H 130 H 111 H Pulse Rate [ 113 H From Monitor] Respiratory 16 14 20 Rate Blood Pressure 101/63 80/42 66/29 O2 Sat by Pulse 93 93 94 Oximetry 09/12/19 09/12/19 09/12/19 00:11 00:21 00:30 Temperature Pulse Rate 112 H 103 H 99 H Pulse Rate [ From Monitor] Respiratory 23 27 H 17 Rate Blood Pressure 66/29 71/31 84/33 O2 Sat by Pulse 96 98 99 Oximetry 09/12/19 09/12/19 09/12/19 00:41 00:51 01:00 Temperature Pulse Rate 94 H 90 88 Pulse Rate [ From Monitor] Respiratory 17 18 16 Rate Blood Pressure 84/33 87/41 83/39 O2 Sat by Pulse 100 100 100 Oximetry 09/12/19 09/12/19 09/12/19 01:11 01:21 01:30 Temperature Pulse Rate 83 81 84 Pulse Rate [ From Monitor] Respiratory 16 18 16 Rate Blood Pressure 83/39 93/38 84/36 O2 Sat by Pulse 100 100 100 Oximetry 09/12/19 09/12/19 09/12/19 01:41 01:51 02:00 Temperature Pulse Rate 83 85 75 Pulse Rate [ From Monitor] Respiratory 14 18 18 Rate Blood Pressure 84/36 87/39 88/37 O2 Sat by Pulse 100 100 100 Oximetry 09/12/19 09/12/19 09/12/19 02:11 02:21 02:30 Temperature Pulse Rate 76 77 78 Pulse Rate [ From Monitor] Respiratory 17 19 15 Rate Blood Pressure 88/37 87/38 90/41 O2 Sat by Pulse 100 100 100 Oximetry 09/12/19 09/12/1909/12/19 02:41 02:51 03:00 Temperature 97.7 F Pulse Rate 74 77 77 Pulse Rate [ From Monitor] Respiratory 17 14 16 Rate Blood Pressure 90/41 86/38 84/33 O2 Sat by Pulse 100 100 100 Oximetry 09/12/19 09/12/19 09/12/19 03:11 03:21 03:30 Temperature Pulse Rate 70 80 71 Pulse Rate [ From Monitor] Respiratory 17 21 15 Rate Blood Pressure 84/33 88/36 96/40 O2 Sat by Pulse 100 100 100 Oximetry 09/12/19 09/12/19 09/12/19 03:41 03:51 04:00 Temperature 97.7 F Pulse Rate 71 75 71 Pulse Rate [ 71 From Monitor] Respiratory 13 18 19 Rate Blood Pressure 96/40 77/34 86/35 O2 Sat by Pulse 100 100 100 Oximetry 09/12/19 09/12/19 09/12/19 04:11 04:21 04:30 Temperature Pulse Rate 72 77 67 Pulse Rate [ From Monitor] Respiratory 12 19 17 Rate Blood Pressure 86/35 85/31 93/41 O2 Sat by Pulse 100 100 100 Oximetry 09/12/19 09/12/19 09/12/19 04:41 04:51 05:00 Temperature Pulse Rate 67 72 83 Pulse Rate [ From Monitor] Respiratory 16 16 18 Rate Blood Pressure 93/41 92/43 106/34 O2 Sat by Pulse 100 100 100 Oximetry 09/12/19 09/12/19 09/12/19 05:11 05:21 05:30 Temperature Pulse Rate 77 78 71 Pulse Rate [ From Monitor] Respiratory 18 19 14 Rate Blood Pressure 106/34 106/34 87/35 O2 Sat by Pulse 100 100 100 Oximetry 09/12/19 09/12/19 09/12/19 05:41 05:51 06:00 Temperature Pulse Rate 68 68 70 Pulse Rate [ From Monitor] Respiratory 19 15 15 Rate Blood Pressure 87/35 87/35 99/49 O2 Sat by Pulse 100 100 100 Oximetry 09/12/19 09/12/19 09/12/19 06:10 06:21 06:30 Temperature Pulse Rate 67 68 68 Pulse Rate [ From Monitor] Respiratory 16 18 14 Rate Blood Pressure 99/49 99/49 109/37 O2 Sat by Pulse 100 100 100 Oximetry 09/12/19 09/12/19 09/12/19 06:41 06:51 07:00 Temperature Pulse Rate 68 67 69 Pulse Rate [ From Monitor] Respiratory 16 22 19 Rate Blood Pressure 109/37 109/37 119/38 O2 Sat by Pulse 100 100 100 Oximetry General appearance: Present: no acute distress, well-nourished - EENT Eyes: PERRL, EOM intact ENT: hearing intact, clear oral mucosa Ears: bilateral: normal - Neck Neck: supple, normal ROM - Respiratory Respiratory effort: normal Respiratory: bilateral: CTA - Breasts Breasts: normal - Cardiovascular Rhythm: regular Heart Sounds: Present: S1 & S2. Absent: gallop, rub Extremities: pulses intact, No edema, normal color, Full ROM - Gastrointestinal General gastrointestinal: Present: soft, non-tender, non-distended, normal bowel sounds - Genitourinary Female genitourinary: normal - Integumentary Integumentary: clear, warm, dry - Musculoskeletal Musculoskeletal: 1, strength equal bilaterally - Neurologic Neurologic: moves all extremities - Psychiatric Psychiatric: memory intact, appropriate mood/affect, intact judgment & insight - Labs CBC & Chem 7: 09/12/19 05:00 09/12/19 05:00 Labs: Abnormal lab results 09/12/19 09/12/19 Range/Units 05:00 05:00 WBC 3.4 L (4.5-11.0) K/mm3 RBC 2.47 L (3.65-5.03) M/mm3 Hgb 7.0 L (10.1-14.3) gm/dl Hct 21.9 L (30.3-42.9) % RDW 19.7 H (13.2-15.2) % Plt Count 120 L (140-440) K/mm3 Lymphocytes % (Manual) 36.0 H (13.4-35.0) % Nucleated RBC % 1.0 H (0.0-0.9) % Potassium 3.1 L (3.6-5.0) mmol/L Creatinine 2.8 H (0.7-1.2) mg/dL
[2019-09-12] MEDS ORDERED: SODIUM CHLORIDE 0.9% 500 ML 500 ML IV NR (09:00)
[2019-09-12] MEDS: CALCIUM ACETATE 667 MG CAP PO SCH ×3 (09:30→22:56)
[2019-09-12] MEDS: MIDODRINE 5 MG TAB PO SCH ×3 (09:30→22:56)
[2019-09-12] MEDS: HEPARIN 5,000 UNIT/1 ML VIAL SUB-Q SCH ×2 (09:42→21:08)
[2019-09-12] MEDS: DIVALPROEX ER 500 MG TAB PO SCH ×2 (09:43→22:37)
[2019-09-12] MEDS: LORazepam 1 MG TAB PO SCH ×2 (09:43→21:07)
[2019-09-12] MEDS: FAMOTIDINE 10 MG TAB PO SCH (09:43)
[2019-09-12] MEDS: MEMANTINE 5 MG TAB PO SCH (09:44)
--- NOTE | 2019-09-12 12:35 | Progress Note ---
Assessment and Plan Imp: 1. Pyuria -> probable UTI 2. Severe sepsis with septic shock 3. ESRD 4. Lactic acidosis 5. Mild L basilar atelectasis 6. Pancytopenia, ? due to antibiotics Rec: 1. Wean pressors to keep MAP > 65; cont. Midodrine; can tolerate MAP of 55 or > given chronic hypotension 2. Cultures negative; complete a course of Cefipime; consider ID eval. if persistent hypotension 3. HD per renal 4. SubQ heparin; monitor platelets 5. Further plans pending clinical course 6. No PICC per renal 7. Defer K correction/repletion to renal 8. Complex decision-making Plan of care reviewed w/ patient, she understands/agrees; no family present Subjective Date of service: 09/12/19 Principal diagnosis: Septic shock, ESRD, sacral decubitus ulcer Interval history: No events. More alert and appropriate, calm. Remains on 4mcg of Levophed. No complaints except toe hurts on L foot due to "ingrown toenail". Active Medications Acetaminophen (Tylenol) 650 mg PO Q4H PRN PRN Reason: Pain MILD(1-3)/Fever >100.5/DRAKE Calcium Acetate (Phoslo) 667 mg PO TID [facility] Last Admin: 09/12/19 09:30 Dose: 667 mg Documented by: Divalproex Sodium (Depakote Er) 500 mg PO QAM [facility] Last Admin: 09/12/19 09:43 Dose: 500 mg Documented by: Divalproex Sodium (Depakote Er) 1,500 mg PO HS [facility] Last Admin: 09/11/19 22:16 Dose: 1,500 mg Documented by: Epoetin Lb (Procrit) 10,000 unit IV BIANCA PRN PRN Reason: hemodialysis Last Admin: 09/11/19 15:33 Dose: 10,000 unit Documented by: Famotidine (Pepcid) 10 mg PO DAILY [facility] Last Admin: 09/12/19 09:43 Dose: 10 mg Documented by: Heparin Sodium (Porcine) (Heparin) 5,000 unit SUB-Q Q12HR [facility] Last Admin: 09/12/19 09:42 Dose: 5,000 unit Documented by: Heparin Sodium (Porcine) (Heparin 10,000 Units/10 Ml) 3,000 unit IV BIANCA PRN PRN Reason: hemodialysis Hydromorphone HCl (Dilaudid) 0.25 mg IV Q3H PRN PRN Reason: Pain, Moderate (4-6) Last Admin: 09/08/19 06:15 Dose: 0.25 mg Documented by: Cefepime HCl (Cefepime/Ns 1 Gm/100 Ml) 1 gm in 100 mls @ 200 mls/hr IV Q24H [facility]; Protocol Last Admin: 09/11/19 19:29 Dose: 200 mls/hr Documented by: Sodium Chloride (Nacl 0.9%) 100 mls @ 999 mls/hr IV BIANCA PRN PRN Reason: Hypotension Norepinephrine (Levophed Drip 4 Mg/Ns 250 Ml) 4 mg in 250 mls @ 7.5 mls/hr IV TITR [facility]; Protocol Last Titration: 09/12/19 03:06 Dose: 4 mcg/min, 15 mls/hr Documented by: Sodium Chloride (Nacl 0.9% 500 Ml) 500 mls @ 0 mls/hr IV ONCE NR Stop: 09/12/19 18:00 Lorazepam (Ativan) 1 mg PO BID [facility] Last Admin: 09/12/19 09:43 Dose: 1 mg Documented by: Memantine (Memantine) 5 mg PO DAILY [facility] Last Admin: 09/12/19 09:44 Dose: 5 mg Documented by: Midodrine (Proamatine) 10 mg PO TID [facility] Last Admin: 09/12/19 09:30 Dose: 10 mg Documented by: Ondansetron HCl (Zofran) 4 mg IV Q8H PRN PRN Reason: Nausea And Vomiting Paricalcitol (Zemplar) 0.5 mcg IV BIANCA PRN PRN Reason: hemodialysis Quetiapine Fumarate (Seroquel) 400 mg PO QHS [facility] Last Admin: 09/11/19 22:16 Dose: 400 mg Documented by: Sodium Chloride (Sodium Chloride Flush Syringe 10 Ml) 10 ml IV BID [facility] Last Admin: 09/12/19 09:44 Dose: 10 ml Documented by: Sodium Chloride (Sodium Chloride Flush Syringe 10 Ml) 10 ml IV PRN PRN PRN Reason: LINE FLUSH Last Admin: 09/11/19 10:03 Dose: 10 ml Documented by: Objective Vital Signs - 12hr 09/12/19 09/12/19 09/12/19 00:41 00:51 01:00 Temperature Pulse Rate 94 H 90 88 Pulse Rate [ From Monitor] Respiratory 17 18 16 Rate Blood Pressure 84/33 87/41 83/39 O2 Sat by Pulse 100 100 100 Oximetry 09/12/19 09/12/19 09/12/19 01:11 01:21 01:30 Temperature Pulse Rate 83 81 84 Pulse Rate [ From Monitor] Respiratory 16 18 16 Rate Blood Pressure 83/39 93/38 84/36 O2 Sat by Pulse 100 100 100 Oximetry 09/12/19 09/12/19 09/12/19 01:41 01:51 02:00 Temperature Pulse Rate 83 85 75 Pulse Rate [ From Monitor] Respiratory 14 18 18 Rate Blood Pressure 84/36 87/39 88/37 O2 Sat by Pulse 100 100 100 Oximetry 09/12/19 09/12/19 09/12/19 02:11 02:21 02:30 Temperature Pulse Rate 76 77 78 Pulse Rate [ From Monitor] Respiratory 17 19 15 Rate Blood Pressure 88/37 87/38 90/41 O2 Sat by Pulse 100 100 100 Oximetry 09/12/19 09/12/19 09/12/19 02:41 02:51 03:00 Temperature 97.7 F Pulse Rate 74 77 77 Pulse Rate [ From Monitor] Respiratory 17 14 16 Rate Blood Pressure 90/41 86/38 84/33 O2 Sat by Pulse 100 100 100 Oximetry 09/12/19 09/12/19 09/12/19 03:11 03:21 03:30 Temperature Pulse Rate 70 80 71 Pulse Rate [ From Monitor] Respiratory 17 21 15 Rate Blood Pressure 84/33 88/36 96/40 O2 Sat by Pulse 100 100 100 Oximetry 09/12/19 09/12/19 09/12/19 03:41 03:51 04:00 Temperature 97.7 F Pulse Rate 71 75 71 Pulse Rate [ 71 From Monitor] Respiratory 13 18 19 Rate Blood Pressure 96/40 77/34 86/35 O2 Sat by Pulse 100 100 100 Oximetry 09/12/19 09/12/19 09/12/19 04:11 04:21 04:30 Temperature Pulse Rate 72 77 67 Pulse Rate [ From Monitor] Respiratory 12 19 17 Rate Blood Pressure 86/35 85/31 93/41 O2 Sat by Pulse 100 100 100 Oximetry 09/12/19 09/12/19 09/12/19 04:41 04:51 05:00 Temperature Pulse Rate 67 72 83 Pulse Rate [ From Monitor] Respiratory 16 16 18 Rate Blood Pressure 93/41 92/43 106/34 O2 Sat by Pulse 100 100 100 Oximetry 09/12/19 09/12/19 09/12/19 05:11 05:21 05:30 Temperature Pulse Rate 77 78 71 Pulse Rate [ From Monitor] Respiratory 18 19 14 Rate Blood Pressure 106/34 106/34 87/35 O2 Sat by Pulse 100 100 100 Oximetry 09/12/19 09/12/19 09/12/19 05:41 05:51 06:00 Temperature Pulse Rate 68 68 70 Pulse Rate [ From Monitor] Respiratory 19 15 15 Rate Blood Pressure 87/35 87/35 99/49 O2 Sat by Pulse 100 100 100 Oximetry 09/12/19 09/12/19 09/12/19 06:10 06:21 06:30 Temperature Pulse Rate 67 68 68 Pulse Rate [ From Monitor] Respiratory 16 18 14 Rate Blood Pressure 99/49 99/49 109/37 O2 Sat by Pulse 100 100 100 Oximetry 09/12/19 09/12/19 09/12/19 06:41 06:51 07:00 Temperature Pulse Rate 68 67 69 Pulse Rate [ From Monitor] Respiratory 16 22 19 Rate Blood Pressure 109/37 109/37 119/38 O2 Sat by Pulse 100 100 100 Oximetry 09/12/19 09/12/19 09/12/19 07:11 07:20 07:30 Temperature Pulse Rate 67 87 76 Pulse Rate [ From Monitor] Respiratory 17 14 17 Rate Blood Pressure 119/38 104/41 100/41 O2 Sat by Pulse 100 100 100 Oximetry 09/12/19 09/12/19 09/12/19 07:41 07:50 08:00 Temperature 98.6 F Pulse Rate 76 72 69 Pulse Rate [ From Monitor] Respiratory 17 16 17 Rate Blood Pressure 100/41 96/38 98/46 O2 Sat by Pulse 100 100 100 Oximetry 09/12/19 09/12/19 09/12/19 08:10 08:15 08:21 Temperature Pulse Rate 73 70 Pulse Rate [ From Monitor] Respiratory 12 17 Rate Blood Pressure 98/46 85/37 O2 Sat by Pulse 100 100 100 Oximetry 09/12/19 09/12/19 09/12/19 08:30 08:41 08:51 Temperature Pulse Rate 65 81 74 Pulse Rate [ From Monitor] Respiratory 17 11 L 14 Rate Blood Pressure 90/38 90/38 97/52 O2 Sat by Pulse 100 100 97 Oximetry 09/12/19 09/12/19 09/12/19 09:00 09:11 09:21 Temperature Pulse Rate 82 73 71 Pulse Rate [ From Monitor] Respiratory 13 16 17 Rate Blood Pressure 100/45 100/45 94/40 O2 Sat by Pulse 100 99 100 Oximetry 09/12/19 09/12/19 09/12/19 09:30 09:36 09:41 Temperature Pulse Rate 83 92 H Pulse Rate [ From Monitor] Respiratory 16 23 Rate Blood Pressure 87/53 87/53 O2 Sat by Pulse 99 100 100 Oximetry 09/12/19 09/12/19 09/12/19 09:51 10:00 10:11 Temperature Pulse Rate 95 H 81 83 Pulse Rate [ From Monitor] Respiratory 13 12 13 Rate Blood Pressure 86/52 95/43 95/43 O2 Sat by Pulse 100 99 100 Oximetry 09/12/19 09/12/19 09/12/19 10:21 10:30 10:41 Temperature Pulse Rate 80 78 93 H Pulse Rate [ From Monitor] Respiratory 15 14 17 Rate Blood Pressure 95/43 101/38 101/38 O2 Sat by Pulse 100 100 100 Oximetry 09/12/19 09/12/19 09/12/19 10:51 11:00 11:11 Temperature Pulse Rate 80 74 79 Pulse Rate [ From Monitor] Respiratory 17 15 15 Rate Blood Pressure 101/38 84/54 84/54 O2 Sat by Pulse 100 100 100 Oximetry 09/12/19 09/12/19 09/12/19 11:21 11:30 11:41 Temperature Pulse Rate 70 81 73 Pulse Rate [ From Monitor] Respiratory 18 16 16 Rate Blood Pressure 84/54 98/56 98/56 O2 Sat by Pulse 100 100 100 Oximetry Constitutional: no acute distress, alert Eyes: non-icteric ENT: oropharynx moist Neck: supple Effort: normal Ascultation: Bilateral: clear Cardiovascular: regular rate and rhythm (no mrg) Gastrointestinal: normoactive bowel sounds, soft, non-tender, non-distended, oth er (benign exam) Extremities: no cyanosis, no edema, pink and warm, other (L foot examined -> warm without obvious rashes/cellulitis/lesions, etc.) Neurologic: normal mental status, non-focal exam, pupils equal and round Psychiatric: mood appropriate, affect normal CBC and BMP: 09/12/19 05:00 09/12/19 05:00 Abnormal lab findings: Abnormal Labs 09/07/19 09/07/19 09/07/19 12:45 12:45 13:45 WBC RBC Hgb Hct RDW Plt Count Lymph % (Auto) [place] % (Auto) Lymph # [place] # Seg Neutrophils % Lymphocytes % (Manual) Nucleated RBC % Seg Neutrophils # Potassium 3.3 L Chloride Carbon Dioxide 18 L BUN 25 H Creatinine 5.6 H Glucose 129 H POC Glucose Lactic Acid 2.70 H* Total Protein 5.1 L Albumin 2.2 L Urine WBC (Auto) > 182.0 H Valproic Acid Crossmatch 09/07/19 09/07/19 09/08/19 15:38 20:10 04:00 WBC 13.2 H RBC 3.07 L 2.79 L Hgb 8.6 L 8.1 L Hct 28.8 L 25.5 L RDW 20.4 H 20.4 H Plt Count Lymph % (Auto) 3.3 L 5.2 L [place] % (Auto) 15.6 H Lymph # 0.4 L 0.6 L [place] # 2.1 H Seg Neutrophils % 80.8 H 87.1 H Lymphocytes % (Manual) Nucleated RBC % Seg Neutrophils # 10.7 H 9.5 H Potassium Chloride Carbon Dioxide BUN Creatinine Glucose POC Glucose Lactic Acid Total Protein Albumin Urine WBC (Auto) Valproic Acid < 2.8 L Crossmatch 09/08/19 09/10/19 09/11/19 04:00 05:19 06:00 WBC 3.3 L RBC 2.63 L Hgb 7.4 L Hct 23.5 L RDW 20.0 H Plt Count Lymph % (Auto) 39.7 H [place] % (Auto) Lymph # [place] # Seg Neutrophils % Lymphocytes % (Manual) Nucleated RBC % Seg Neutrophils # 1.6 L Potassium Chloride 109.1 H Carbon Dioxide 15 L BUN 33 H Creatinine 5.5 H Glucose 137 H POC Glucose 163 H Lactic Acid Total Protein 5.6 L Albumin 2.4 L Urine WBC (Auto) Valproic Acid Crossmatch 09/11/19 09/12/19 09/12/19 06:00 05:00 05:00 WBC 3.4 L RBC 2.47 L Hgb 7.0 L Hct 21.9 L RDW 19.7 H Plt Count 120 L Lymph % (Auto) [place] % (Auto) Lymph # [place] # Seg Neutrophils % Lymphocytes % (Manual) 36.0 H Nucleated RBC % 1.0 H Seg Neutrophils # Potassium 3.3 L 3.1 L Chloride 109.7 H Carbon Dioxide 20 L BUN 28 H Creatinine 4.1 H 2.8 H Glucose 127 H POC Glucose Lactic Acid Total Protein Albumin Urine WBC (Auto) Valproic Acid Crossmatch 09/12/19 10:40 WBC RBC Hgb Hct RDW Plt Count Lymph % (Auto) [place] % (Auto) Lymph # [place] # Seg Neutrophils % Lymphocytes % (Manual) Nucleated RBC % Seg Neutrophils # Potassium Chloride Carbon Dioxide BUN Creatinine Glucose POC Glucose Lactic Acid Total Protein Albumin Urine WBC (Auto) Valproic Acid Crossmatch See Detail Chest x-ray: report reviewed, image reviewed
[2019-09-12] MEDS ORDERED: POTASSIUM CHLORIDE ER 20 MEQ TAB PO NR (13:30)
--- NOTE | 2019-09-12 17:44 | Progress Note ---
Assessment and Plan Critical care time 40 minutes - Patient Problems (1) Septic shock Current Visit: Yes Status: Acute Plan to address problem: Patient is in septic shock Secondary to urinary tract infection Patient initiated on IV cefepime and vancomycin pending cultures Was given aztreonam in the ER. Patient has penicillin allergy but there should not be be much cross-reactivity with cefepime IV vancomycin was initiated Continue pressors (2) Acute encephalopathy Current Visit: Yes Status: Acute Plan to address problem: Sec to sepsis Uremia and UTi Improved (3) ESRD (end stage renal disease) on dialysis Current Visit: Yes Status: Chronic Plan to address problem: Nephrology consulted Continue hemodialysis as per schedule Less ultrafiltration because of hyper tension (4) UTI (urinary tract infection) Current Visit: Yes Status: Acute Qualifiers: Urinary tract infection type: acute cystitis Plan to address problem: IV cefepime for now and vancomycin (5) Hypotension Current Visit: No Status: Acute Qualifiers: Hypotension type: unspecified hypotension type Qualified Code(s): I95.9 - Hypotension, unspecified Plan to address problem: IV fluids and pressors Still on pressors (6) Sacral decubitus ulcer Current Visit: Yes Status: Chronic Plan to address problem: Wound care consult requested (7) Seizure disorder Current Visit: Yes Status: Acute Plan to address problem: Continue Depakote Check Depakote level (8) Tremors of nervous system Current Visit: Yes Status: Chronic Plan to address problem: Possible Parkinson's Neurology consulted (9) Schizophrenia Current Visit: Yes Status: Chronic Qualifiers: Schizophrenia type: unspecified Qualified Code(s): F20.9 - Schizophrenia, unspecified Plan to address problem: On Seroquel. Continue Seroquel (10) DVT prophylaxis Current Visit: Yes Status: Acute Plan to address problem: On heparin and GI prophylaxis Subjective Date of service: 09/12/19 Principal diagnosis: Septic shock, ESRD, sacral decubitus ulcer Interval history: 64-year-old female with multiple medical problems presents with high temperature of 101.9 and low blood pressure from the custodial. Patient also has altered mental status. Lethargic. Patient has end-stage renal disease with dialysis on Sunday, hypertension, drug-induced dyskinesia and dystonia, seizures, anxiety and hyperparathyroidism. In the emergency room patient blood pressure was ranging from 70/50 to 90/60. Central line was placed for possible use of pressors. Source of infection is urine which shows WBCs more than 182. Patient has a heart rate of 140. Patient also has tremors in both hands at rest. Symptomatically better --off pressors Objective - Constitutional Vitals: Vital Signs - 12hr 09/12/19 09/12/19 09/12/19 05:51 06:00 06:10 Temperature Pulse Rate 68 70 67 Respiratory 15 15 16 Rate Blood Pressure 87/35 99/49 99/49 O2 Sat by Pulse 100 100 100 Oximetry 09/12/19 09/12/19 09/12/19 06:21 06:30 06:41 Temperature Pulse Rate 68 68 68 Respiratory 18 14 16 Rate Blood Pressure 99/49 109/37 109/37 O2 Sat by Pulse 100 100 100 Oximetry 09/12/19 09/12/19 09/12/19 06:51 07:00 07:11 Temperature Pulse Rate 67 69 67 Respiratory 22 19 17 Rate Blood Pressure 109/37 119/38 119/38 O2 Sat by Pulse 100 100 100 Oximetry 09/12/19 09/12/19 09/12/19 07:20 07:30 07:41 Temperature Pulse Rate 87 76 76 Respiratory 14 17 17 Rate Blood Pressure 104/41 100/41 100/41 O2 Sat by Pulse 100 100 100 Oximetry 09/12/19 09/12/19 09/12/19 07:50 08:00 08:10 Temperature 98.6 F Pulse Rate 72 69 73 Respiratory 16 17 12 Rate Blood Pressure 96/38 98/46 98/46 O2 Sat by Pulse 100 100 100 Oximetry 09/12/19 09/12/19 09/12/19 08:15 08:21 08:30 Temperature Pulse Rate 70 65 Respiratory 17 17 Rate Blood Pressure 85/37 90/38 O2 Sat by Pulse 100 100 100 Oximetry 09/12/19 09/12/19 09/12/19 08:41 08:51 09:00 Temperature Pulse Rate 81 74 82 Respiratory 11 L 14 13 Rate Blood Pressure 90/38 97/52 100/45 O2 Sat by Pulse 100 97 100 Oximetry 09/12/19 09/12/19 09/12/19 09:11 09:21 09:30 Temperature Pulse Rate 73 71 83 Respiratory 16 17 16 Rate Blood Pressure 100/45 94/40 87/53 O2 Sat by Pulse 99 100 99 Oximetry 09/12/19 09/12/19 09/12/19 09:36 09:41 09:51 Temperature Pulse Rate 92 H 95 H Respiratory 23 13 Rate Blood Pressure 87/53 86/52 O2 Sat by Pulse 100 100 100 Oximetry 09/12/19 09/12/19 09/12/19 10:00 10:11 10:21 Temperature Pulse Rate 81 83 80 Respiratory 12 13 15 Rate Blood Pressure 95/43 95/43 95/43 O2 Sat by Pulse 99 100 100 Oximetry 09/12/19 09/12/19 09/12/19 10:30 10:41 10:51 Temperature Pulse Rate 78 93 H 80 Respiratory 14 17 17 Rate Blood Pressure 101/38 101/38 101/38 O2 Sat by Pulse 100 100 100 Oximetry 09/12/19 09/12/19 09/12/19 11:00 11:11 11:21 Temperature Pulse Rate 74 79 70 Respiratory 15 15 18 Rate Blood Pressure 84/54 84/54 84/54 O2 Sat by Pulse 100 100 100 Oximetry 09/12/19 09/12/19 09/12/19 11:30 11:41 11:51 Temperature Pulse Rate 81 73 77 Respiratory 16 16 14 Rate Blood Pressure 98/56 98/56 98/56 O2 Sat by Pulse 100 100 100 Oximetry 09/12/19 09/12/19 09/12/19 12:00 12:11 12:21 Temperature 98.8 F Pulse Rate 68 78 89 Respiratory 19 15 19 Rate Blood Pressure 100/49 100/49 100/49 O2 Sat by Pulse 100 100 98 Oximetry 09/12/19 09/12/19 09/12/19 12:31 12:41 12:51 Temperature Pulse Rate 88 101 H 92 H Respiratory 12 20 11 L Rate Blood Pressure 110/59 110/59 110/59 O2 Sat by Pulse 85 97 100 Oximetry 09/12/19 09/12/19 09/12/19 13:00 13:11 13:21 Temperature Pulse Rate 88 84 76 Respiratory 10 L 10 L 19 Rate Blood Pressure 118/59 118/59 118/59 O2 Sat by Pulse 92 100 100 Oximetry 09/12/19 09/12/19 09/12/19 13:30 13:41 13:50 Temperature Pulse Rate 75 86 89 Respiratory 19 12 17 Rate Blood Pressure 117/54 97/54 97/54 O2 Sat by Pulse 100 100 99 Oximetry 09/12/19 09/12/19 09/12/19 14:00 14:05 14:11 Temperature 98.8 F Pulse Rate 82 87 82 Respiratory 19 17 19 Rate Blood Pressure 103/52 103/52 97/54 O2 Sat by Pulse 99 98 100 Oximetry 09/12/19 09/12/19 09/12/19 14:20 14:21 14:30 Temperature 98.5 F Pulse Rate 72 74 73 Respiratory 18 19 19 Rate Blood Pressure 95/48 97/54 103/52 O2 Sat by Pulse 100 98 100 Oximetry 09/12/19 09/12/19 09/12/19 14:41 14:50 14:51 Temperature 98.8 F Pulse Rate 73 74 81 Respiratory 18 14 14 Rate Blood Pressure 103/57 95/48 O2 Sat by Pulse 100 98 100 Oximetry 09/12/19 09/12/19 09/12/19 15:00 15:11 15:20 Temperature 98.7 F Pulse Rate 74 76 76 Respiratory 16 13 17 Rate Blood Pressure 103/57 103/57 112/55 O2 Sat by Pulse 56 L 81 L 100 Oximetry 09/12/19 09/12/19 09/12/19 15:21 15:30 15:41 Temperature Pulse Rate 72 103 H 70 Respiratory 15 19 18 Rate Blood Pressure 103/57 112/55 112/55 O2 Sat by Pulse 98 100 100 Oximetry 09/12/19 09/12/19 09/12/19 15:50 15:51 16:00 Temperature 98.4 F Pulse Rate 71 71 71 Respiratory 18 18 18 Rate Blood Pressure 88/44 112/55 88/44 O2 Sat by Pulse 98 100 100 Oximetry 09/12/19 09/12/19 09/12/19 16:11 16:21 16:31 Temperature Pulse Rate 71 77 73 Respiratory 18 13 20 Rate Blood Pressure 88/44 88/44 105/54 O2 Sat by Pulse 100 100 98 Oximetry 09/12/19 16:41 Temperature Pulse Rate 71 Respiratory 15 Rate Blood Pressure 105/54 O2 Sat by Pulse 100 Oximetry General appearance: Present: no acute distress, well-nourished - EENT Eyes: PERRL, EOM intact ENT: hearing intact, clear oral mucosa Ears: bilateral: normal - Neck Neck: supple, normal ROM - Respiratory Respiratory effort: normal Respiratory: bilateral: CTA - Breasts Breasts: normal - Cardiovascular Heart rate: 78 Rhythm: regular Heart Sounds: Present: S1 & S2. Absent: gallop, rub Extremities: pulses intact, No edema, normal color, Full ROM - Gastrointestinal General gastrointestinal: Present: soft, non-tender, non-distended, normal bowel sounds - Genitourinary Female genitourinary: normal - Integumentary Integumentary: clear, warm, dry - Musculoskeletal Musculoskeletal: 1, strength equal bilaterally - Neurologic Neurologic: moves all extremities - Psychiatric Psychiatric: memory intact, appropriate mood/affect, intact judgment & insight - Labs CBC & Chem 7: 09/12/19 05:00 09/12/19 05:00 Labs: Abnormal lab results 09/12/19 09/12/19 09/12/19 Range/Units 05:00 05:00 10:40 WBC 3.4 L (4.5-11.0) K/mm3 RBC 2.47 L (3.65-5.03) M/mm3 Hgb 7.0 L (10.1-14.3) gm/dl Hct 21.9 L (30.3-42.9) % RDW 19.7 H (13.2-15.2) % Plt Count 120 L (140-440) K/mm3 Lymphocytes % (Manual) 36.0 H (13.4-35.0) % Nucleated RBC % 1.0 H (0.0-0.9) % Potassium 3.1 L (3.6-5.0) mmol/L Creatinine 2.8 H (0.7-1.2) mg/dL Crossmatch See Detail
--- NOTE | 2019-09-12 17:58 | Progress Note ---
Assessment and Plan - Patient Problems (1) ESRD (end stage renal disease) on dialysis Current Visit: Yes Status: Chronic Plan to address problem: esrd on dialysis continue HD TTS (2) Anemia in chronic kidney disease Current Visit: No Status: Acute Plan to address problem: moderate anemia Hb: 7.4g/dl Status post blood transfusion continue epogen. (3) Hypotension Current Visit: No Status: Acute Qualifiers: Hypotension type: unspecified hypotension type Qualified Code(s): I95.9 - Hypotension, unspecified Plan to address problem: Hypotension Will increase midodrine to 15mg tid patient has chronically low blood pressures. wean off levophed , goal Map should be around 60 not greater as long as patient is asymptomatic. (4) Hypokalemia Current Visit: Yes Status: Acute Plan to address problem: Will use 4K bath Please do not aggressively replete potassium in this patient who is often non coperative and can refuse dialysis Avoid Iatrogenic Hyperkalemia! Subjective Principal diagnosis: Septic shock, ESRD, sacral decubitus ulcer Interval history: 64 year old with ESRD on hemodialysis on Sun sat at [facility] ad mitted with AMS and hypotension patient seen today, denies any orthopnea or PND. Denies any edema denies any fever or chills. Status post blood transfusion Objective - Vital Signs Vital signs: Vital Signs - 12hr 09/12/19 09/12/19 09/12/19 06:00 06:10 06:21 Temperature Pulse Rate 70 67 68 Respiratory 15 16 18 Rate Blood Pressure 99/49 99/49 99/49 O2 Sat by Pulse 100 100 100 Oximetry 09/12/19 09/12/19 09/12/19 06:30 06:41 06:51 Temperature Pulse Rate 68 68 67 Respiratory 14 16 22 Rate Blood Pressure 109/37 109/37 109/37 O2 Sat by Pulse 100 100 100 Oximetry 09/12/19 09/12/19 09/12/19 07:00 07:11 07:20 Temperature Pulse Rate 69 67 87 Respiratory 19 17 14 Rate Blood Pressure 119/38 119/38 104/41 O2 Sat by Pulse 100 100 100 Oximetry 09/12/19 09/12/19 09/12/19 07:30 07:41 07:50 Temperature Pulse Rate 76 76 72 Respiratory 17 17 16 Rate Blood Pressure 100/41 100/41 96/38 O2 Sat by Pulse 100 100 100 Oximetry 09/12/19 09/12/19 09/12/19 08:00 08:10 08:15 Temperature 98.6 F Pulse Rate 69 73 Respiratory 17 12 Rate Blood Pressure 98/46 98/46 O2 Sat by Pulse 100 100 100 Oximetry 09/12/19 09/12/19 09/12/19 08:21 08:30 08:41 Temperature Pulse Rate 70 65 81 Respiratory 17 17 11 L Rate Blood Pressure 85/37 90/38 90/38 O2 Sat by Pulse 100 100 100 Oximetry 09/12/19 09/12/19 09/12/19 08:51 09:00 09:11 Temperature Pulse Rate 74 82 73 Respiratory 14 13 16 Rate Blood Pressure 97/52 100/45 100/45 O2 Sat by Pulse 97 100 99 Oximetry 09/12/19 09/12/19 09/12/19 09:21 09:30 09:36 Temperature Pulse Rate 71 83 Respiratory 17 16 Rate Blood Pressure 94/40 87/53 O2 Sat by Pulse 100 99 100 Oximetry 09/12/19 09/12/19 09/12/19 09:41 09:51 10:00 Temperature Pulse Rate 92 H 95 H 81 Respiratory 23 13 12 Rate Blood Pressure 87/53 86/52 95/43 O2 Sat by Pulse 100 100 99 Oximetry 09/12/19 09/12/19 09/12/19 10:11 10:21 10:30 Temperature Pulse Rate 83 80 78 Respiratory 13 15 14 Rate Blood Pressure 95/43 95/43 101/38 O2 Sat by Pulse 100 100 100 Oximetry 09/12/19 09/12/19 09/12/19 10:41 10:51 11:00 Temperature Pulse Rate 93 H 80 74 Respiratory 17 17 15 Rate Blood Pressure 101/38 101/38 84/54 O2 Sat by Pulse 100 100 100 Oximetry 09/12/19 09/12/19 09/12/19 11:11 11:21 11:30 Temperature Pulse Rate 79 70 81 Respiratory 15 18 16 Rate Blood Pressure 84/54 84/54 98/56 O2 Sat by Pulse 100 100 100 Oximetry 09/12/19 09/12/19 09/12/19 11:41 11:51 12:00 Temperature 98.8 F Pulse Rate 73 77 68 Respiratory 16 14 19 Rate Blood Pressure 98/56 98/56 100/49 O2 Sat by Pulse 100 100 100 Oximetry 09/12/19 09/12/19 09/12/19 12:11 12:21 12:31 Temperature Pulse Rate 78 89 88 Respiratory 15 19 12 Rate Blood Pressure 100/49 100/49 110/59 O2 Sat by Pulse 100 98 85 Oximetry 09/12/19 09/12/19 09/12/19 12:41 12:51 13:00 Temperature Pulse Rate 101 H 92 H 88 Respiratory 20 11 L 10 L Rate Blood Pressure 110/59 110/59 118/59 O2 Sat by Pulse 97 100 92 Oximetry 09/12/19 09/12/19 09/12/19 13:11 13:21 13:30 Temperature Pulse Rate 84 76 75 Respiratory 10 L 19 19 Rate Blood Pressure 118/59 118/59 117/54 O2 Sat by Pulse 100 100 100 Oximetry 09/12/19 09/12/19 09/12/19 13:41 13:50 14:00 Temperature Pulse Rate 86 89 82 Respiratory 12 17 19 Rate Blood Pressure 97/54 97/54 103/52 O2 Sat by Pulse 100 99 99 Oximetry 09/12/19 09/12/19 09/12/19 14:05 14:11 14:20 Temperature 98.8 F 98.5 F Pulse Rate 87 82 72 Respiratory 17 19 18 Rate Blood Pressure 103/52 97/54 95/48 O2 Sat by Pulse 98 100 100 Oximetry 09/12/19 09/12/19 09/12/19 14:21 14:30 14:41 Temperature Pulse Rate 74 73 73 Respiratory 19 19 18 Rate Blood Pressure 97/54 103/52 O2 Sat by Pulse 98 100 100 Oximetry 09/12/19 09/12/19 09/12/19 14:50 14:51 15:00 Temperature 98.8 F Pulse Rate 74 81 74 Respiratory 14 14 16 Rate Blood Pressure 103/57 95/48 103/57 O2 Sat by Pulse 98 100 56 L Oximetry 09/12/19 09/12/19 09/12/19 15:11 15:20 15:21 Temperature 98.7 F Pulse Rate 76 76 72 Respiratory 13 17 15 Rate Blood Pressure 103/57 112/55 103/57 O2 Sat by Pulse 81 L 100 98 Oximetry 09/12/19 09/12/19 09/12/19 15:30 15:41 15:50 Temperature 98.4 F Pulse Rate 103 H 70 71 Respiratory 19 18 18 Rate Blood Pressure 112/55 112/55 88/44 O2 Sat by Pulse 100 100 98 Oximetry 09/12/19 09/12/19 09/12/19 15:51 16:00 16:11 Temperature Pulse Rate 71 71 71 Respiratory 18 18 18 Rate Blood Pressure 112/55 88/44 88/44 O2 Sat by Pulse 100 100 100 Oximetry 09/12/19 09/12/19 09/12/19 16:20 16:21 16:31 Temperature 99 F Pulse Rate 75 77 73 Respiratory 16 13 20 Rate Blood Pressure 101/47 88/44 105/54 O2 Sat by Pulse 100 100 98 Oximetry 09/12/19 16:41 Temperature Pulse Rate 71 Respiratory 15 Rate Blood Pressure 105/54 O2 Sat by Pulse 100 Oximetry - General Appearance General appearance: well-developed, well-nourished EENT: ATNC, PERRL Neck: no JVD Respiratory: Present: Clear to Ascultation Cardiology: regular, S1S2 Gastrointestinal: normal, normoactive bowel sounds Integumentary: no rash Neurologic: alert and oriented x3, CN 3-12 intact Psychiatric: mood/affect appropriate - Lab 09/12/19 05:00 09/12/19 05:00 Most recent lab results Calcium 9.0 mg/dL (8.4-10.2) 09/12/19 05:00 - Imaging Chest x-ray: image reviewed ('s) Medications & Allergies - Medications Allergies/Adverse Reactions: Allergies Penicillins Allergy (Verified 02/06/17 13:29) Rash corn Adverse Reaction (Verified 05/14/19 15:01) Unknown Home Medications: Home Medications Medication Instructions Recorded Confirmed Last Taken Type clonazePAM [KlonoPIN] 0.5 mg PO QHS #14 tablet 05/22/19 09/07/19 Unknown Rx Divalproex ER [Depakote ER] 1,500 mg PO HS 05/29/19 09/07/19 Unknown History Divalproex ER [Depakote ER] 500 mg PO QAM 05/29/19 09/07/19 Unknown History Acetaminophen [Acetaminophen TAB] 650 mg PO Q4H PRN tablet 06/03/19 09/07/19 Unknown Rx Calcium Acetate [Phoslo] 667 mg PO TID 08/20/19 09/07/19 Unknown History LORazepam [Ativan] 1 mg PO BID 08/20/19 09/07/19 Unknown History Memantine Xr [Namenda Xr] 5 mg PO DAILY 08/20/19 09/07/19 Unknown History Midodrine [Proamatine] 10 mg PO TID 08/20/19 09/07/19 Unknown History QUEtiapine [SEROquel] 400 mg PO QHS 08/20/19 09/07/19 Unknown History Active Medications: Generic Name Dose Route Start Last Admin Trade Name Bre PRN Reason Stop Dose Admin Acetaminophen 650 mg 09/07/19 18:42 Tylenol PO Q4H PRN Pain MILD(1-3)/Fever >100.5/DRAKE Calcium Acetate 667 mg 09/07/19 20:00 09/12/19 13:36 Phoslo PO 667 mg TID CONNOR Administration Divalproex Sodium 500 mg 09/08/19 10:00 09/12/19 09:43 Depakote Er PO 500 mg QAM CONNOR Administration Divalproex Sodium 1,500 mg 09/07/19 22:00 09/11/19 22:16 Depakote Er PO 1,500 mg HS CONNOR Administration Epoetin Lb 10,000 unit 09/08/19 12:32 09/11/19 15:33 Procrit IV 10,000 unit BIANCA PRN Administration hemodialysis Famotidine 10 mg 09/07/19 22:00 09/12/19 09:43 Pepcid PO 10 mg DAILY CONNOR Administration Heparin Sodium (Porcine) 5,000 unit 09/07/19 22:00 09/12/19 09:42 Heparin SUB-Q 5,000 unit Q12HR CONNOR Administration Heparin Sodium (Porcine) 3,000 unit 09/08/19 12:32 Heparin 10,000 Units/10 Ml IV BIANCA PRN hemodialysis Hydromorphone HCl 0.25 mg 09/07/19 18:44 09/08/19 06:15 Dilaudid IV 0.25 mg Q3H PRN Administration Pain, Moderate (4-6) Cefepime HCl 1 gm in 100 mls @ 200 mls/hr 09/07/19 20:00 09/11/19 19:29 Cefepime/Ns 1 Gm/100 Ml IV 200 mls/hr Q24H CONNOR Administration Protocol Sodium Chloride 100 mls @ 999 mls/hr 09/08/19 12:32 Nacl 0.9% IV BIANCA PRN Hypotension Norepinephrine 4 mg in 250 mls @ 7.5 mls/hr 09/11/19 13:21 09/12/19 14:00 Levophed Drip 4 Mg/Ns 250 Ml IV 0 mcg/min TITR CONNOR 0 mls/hr Titration Protocol 2 MCG/MIN Sodium Chloride 500 mls @ 0 mls/hr 09/12/19 09:00 Nacl 0.9% 500 Ml IV 09/12/19 18:00 ONCE NR As Directed Lorazepam 1 mg 09/07/19 22:00 09/12/19 09:43 Ativan PO 1 mg BID CONNOR Administration Memantine 5 mg 09/08/19 10:00 09/12/19 09:44 Memantine PO 5 mg DAILY CONNOR Administration Midodrine 10 mg 09/07/19 20:00 09/12/19 13:35 Proamatine PO 10 mg TID CONNOR Administration Ondansetron HCl 4 mg 09/07/19 18:44 Zofran IV Q8H PRN Nausea And Vomiting Paricalcitol 0.5 mcg 09/08/19 12:32 Zemplar IV BIANCA PRN hemodialysis Quetiapine Fumarate 400 mg 09/07/19 22:00 09/11/19 22:16 Seroquel PO 400 mg QHS CONNOR Administration Sodium Chloride 10 ml 09/07/19 22:00 09/12/19 09:44 Sodium Chloride Flush Syringe 10 Ml IV 10 ml BID CONNOR Administration Sodium Chloride 10 ml 09/07/19 18:44 09/11/19 10:03 Sodium Chloride Flush Syringe 10 Ml IV 10 ml PRN PRN Administration LINE FLUSH
[2019-09-12] MEDS: QUEtiapine 200 MG TAB PO SCH (22:00)
[2019-09-12] MEDS: CEFEPIME/NS 1 GM/100 ML 1 GM/100 ML BAG IV SCH (22:27)
[2019-09-13 07:00] LABS: Basophils % (Auto) 0.8 % (0.0-1.8); Eosinophils # (Auto) 0.1 K/mm3 (0.0-0.4); Eosinophils % (Auto) 3.1 % (0.0-4.3); Hematocrit 29.5 % (30.3-42.9); Hemoglobin 9.5 gm/dl (10.1-14.3); Lymphocytes # (Auto) 1.5 K/mm3 (1.2-5.4); Lymphocytes % (Auto) 37.9 % (13.4-35.0); Mean Corpuscular HGB Conc 32 % (30-34); Mean Corpuscular Volume 88 fl (79-97); Monocytes # (Auto) 0.3 K/mm3 (0.0-0.8); Monocytes % (Auto) 6.9 % (0.0-7.3); Platelet Count 144 K/mm3 (140-440); Red Blood Count 3.35 M/mm3 (3.65-5.03)
[2019-09-13 07:19] LABS: Calcium 9.4 mg/dL (8.4-10.2)
[2019-09-13] MEDS: MIDODRINE 5 MG TAB PO SCH ×4 (09:46→20:46)
[2019-09-13] MEDS: DIVALPROEX ER 500 MG TAB PO SCH ×2 (09:46→21:15)
[2019-09-13] MEDS: CALCIUM ACETATE 667 MG CAP PO SCH ×4 (09:46→21:15)
[2019-09-13] MEDS: MEMANTINE 5 MG TAB PO SCH (09:47)
[2019-09-13] MEDS: LORazepam 1 MG TAB PO SCH ×2 (09:47→21:15)
[2019-09-13] MEDS: HEPARIN 5,000 UNIT/1 ML VIAL SUB-Q SCH ×2 (09:47→21:15)
[2019-09-13] MEDS: FAMOTIDINE 10 MG TAB PO SCH (09:47)
[2019-09-13] MEDS: EPOETIN ALFA 10,000 UNIT/1 ML INJ IV PRN (13:15)
[2019-09-13] MEDS ORDERED: SODIUM CHLORIDE*PRIMING MACHINE ONLY FOR DIALYSIS MC ONE ×2 (13:28→23:25)
--- NOTE | 2019-09-13 14:14 | Progress Note ---
Assessment and Plan mp: 1. Pyuria -> probable UTI 2. Severe sepsis with septic shock 3. ESRD 4. Lactic acidosis 5. Mild L basilar atelectasis 6. Pancytopenia, ? due to antibiotics Rec: 1. Wean pressors to keep MAP > 65; cont. Midodrine; can tolerate MAP of 55 or > given chronic hypotension 2. Cultures negative; complete a course of Cefipime; consider ID eval. if persistent hypotension 3. HD per renal 4. SubQ heparin; monitor platelets 5. Further plans pending clinical course 6. No PICC per renal 7. Defer K correction/repletion to renal 8. Complex decision-making Subjective Date of service: 09/13/19 Principal diagnosis: Septic shock, ESRD, sacral decubitus ulcer Interval history: Patient on dialysis. Had no new complaints. No shortness of breath Objective Vital Signs - 12hr 09/13/19 09/13/19 09/13/19 08:17 09:00 10:20 Temperature 98.1 F 98.0 F Pulse Rate 79 94 H Respiratory 18 20 18 Rate Blood Pressure 102/54 109/54 O2 Sat by Pulse 95 95 Oximetry Constitutional: no acute distress, alert Eyes: non-icteric ENT: oropharynx moist Neck: supple Effort: normal Ascultation: Bilateral: clear Cardiovascular: regular rate and rhythm (no mrg) Gastrointestinal: normoactive bowel sounds, soft, non-tender, non-distended, other (benign exam) Extremities: no cyanosis, no edema, pink and warm, other (L foot examined -> warm without obvious rashes/cellulitis/lesions, etc.) Neurologic: normal mental status, non-focal exam, pupils equal and round Psychiatric: mood appropriate, affect normal CBC and BMP: 09/13/19 05:54 09/13/19 05:54 Abnormal lab findings: Abnormal Labs 09/07/19 09/07/19 09/07/19 12:45 12:45 13:45 WBC RBC Hgb Hct RDW Plt Count Lymph % (Auto) Wilkes % (Auto) Lymph # Wilkes # Seg Neutrophils % Lymphocytes % (Manual) Nucleated RBC % Seg Neutrophils # Potassium 3.3 L Chloride Carbon Dioxide 18 L BUN 25 H Creatinine 5.6 H Glucose 129 H POC Glucose Lactic Acid 2.70 H* Total Protein 5.1 L Albumin 2.2 L Urine WBC (Auto) > 182.0 H Valproic Acid Crossmatch 09/07/19 09/07/19 09/08/19 15:38 20:10 04:00 WBC 13.2 H RBC 3.07 L 2.79 L Hgb 8.6 L 8.1 L Hct 28.8 L 25.5 L RDW 20.4 H 20.4 H Plt Count Lymph % (Auto) 3.3 L 5.2 L Wilkes % (Auto) 15.6 H Lymph # 0.4 L 0.6 L Wilkes # 2.1 H Seg Neutrophils % 80.8 H 87.1 H Lymphocytes % (Manual) Nucleated RBC % Seg Neutrophils # 10.7 H 9.5 H Potassium Chloride Carbon Dioxide BUN Creatinine Glucose POC Glucose Lactic Acid Total Protein Albumin Urine WBC (Auto) Valproic Acid < 2.8 L Crossmatch 09/08/19 09/10/19 09/11/19 04:00 05:19 06:00 WBC 3.3 L RBC 2.63 L Hgb 7.4 L Hct 23.5 L RDW 20.0 H Plt Count Lymph % (Auto) 39.7 H Wilkes % (Auto) Lymph # Wilkes # Seg Neutrophils % Lymphocytes % (Manual) Nucleated RBC % Seg Neutrophils # 1.6 L Potassium Chloride 109.1 H Carbon Dioxide 15 L BUN 33 H Creatinine 5.5 H Glucose 137 H POC Glucose 163 H Lactic Acid Total Protein 5.6 L Albumin 2.4 L Urine WBC (Auto) Valproic Acid Crossmatch 09/11/19 09/12/19 09/12/19 06:00 05:00 05:00 WBC 3.4 L RBC 2.47 L Hgb 7.0 L Hct 21.9 L RDW 19.7 H Plt Count 120 L Lymph % (Auto) Wilkes % (Auto) Lymph # Wilkes # Seg Neutrophils % Lymphocytes % (Manual) 36.0 H Nucleated RBC % 1.0 H Seg Neutrophils # Potassium 3.3 L 3.1 L Chloride 109.7 H Carbon Dioxide 20 L BUN 28 H Creatinine 4.1 H 2.8 H Glucose 127 H POC Glucose Lactic Acid Total Protein Albumin Urine WBC (Auto) Valproic Acid Crossmatch 09/12/19 09/13/19 09/13/19 10:40 05:54 05:54 WBC 3.9 L RBC 3.35 L Hgb 9.5 L Hct 29.5 L D RDW 18.0 H Plt Count Lymph % (Auto) 37.9 H Wilkes % (Auto) Lymph # Wilkes # Seg Neutrophils % Lymphocytes % (Manual) Nucleated RBC % Seg Neutrophils # Potassium 3.5 L Chloride Carbon Dioxide 21 L BUN 24 H Creatinine 3.7 H Glucose POC Glucose Lactic Acid Total Protein Albumin Urine WBC (Auto) Valproic Acid Crossmatch See Detail
--- NOTE | 2019-09-13 17:06 | Progress Note ---
Assessment and Plan Critical care time 40 minutes - Patient Problems (1) Septic shock Current Visit: Yes Status: Acute Plan to address problem: Patient is in septic shock Secondary to urinary tract infection Patient initiated on IV cefepime and vancomycin pending cultures Was given aztreonam in the ER. Patient has penicillin allergy but there should not be be much cross-reactivity with cefepime IV vancomycin Off pressors (2) Acute encephalopathy Current Visit: Yes Status: Acute Plan to address problem: Sec to sepsis Uremia and UTi Improved (3) ESRD (end stage renal disease) on dialysis Current Visit: Yes Status: Chronic Plan to address problem: Nephrology consulted Continue hemodialysis as per schedule Less ultrafiltration because of hyper tension (4) UTI (urinary tract infection) Current Visit: Yes Status: Acute Qualifiers: Urinary tract infection type: acute cystitis Plan to address problem: IV cefepime for now and vancomycin (5) Hypotension Current Visit: No Status: Acute Qualifiers: Hypotension type: unspecified hypotension type Qualified Code(s): I95.9 - Hypotension, unspecified Plan to address problem: IV fluids and pressors Still on pressors (6) Sacral decubitus ulcer Current Visit: Yes Status: Chronic Plan to address problem: Wound care consult requested (7) Seizure disorder Current Visit: Yes Status: Acute Plan to address problem: Continue Depakote Check Depakote level (8) Tremors of nervous system Current Visit: Yes Status: Chronic Plan to address problem: Possible Parkinson's Neurology consulted (9) Schizophrenia Current Visit: Yes Status: Chronic Qualifiers: Schizophrenia type: unspecified Qualified Code(s): F20.9 - Schizophrenia, unspecified Plan to address problem: On Seroquel. Continue Seroquel (10) DVT prophylaxis Current Visit: Yes Status: Acute Plan to address problem: On heparin and GI prophylaxis Subjective Date of service: 09/13/19 Principal diagnosis: Septic shock, ESRD, sacral decubitus ulcer Interval history: 64-year-old female with multiple medical problems presents with high temperature of 101.9 and low blood pressure from the correction. Patient also has altered mental status. Lethargic. Patient has end-stage renal disease with dialysis on Sunday, hypertension, drug-induced dyskinesia and dystonia, seizures, anxiety and hyperparathyroidism. In the emergency room patient blood pressure was ranging from 70/50 to 90/60. Central line was placed for possible use of pressors. Source of infection is urine which shows WBCs more than 182. Patient has a h eart rate of 140. Patient also has tremors in both hands at rest. Symptomatically better --off pressors Objective - Constitutional Vitals: Vital Signs - 12hr 09/13/19 09/13/19 09/13/19 08:17 09:00 10:20 Temperature 98.1 F 98.0 F Pulse Rate 79 89 Respiratory 18 20 18 Rate Blood Pressure 102/54 110/48 O2 Sat by Pulse 95 95 Oximetry 09/13/19 09/13/19 09/13/19 10:30 10:45 11:00 Temperature Pulse Rate 82 81 80 Respiratory Rate Blood Pressure 112/53 104/56 110/56 O2 Sat by Pulse Oximetry 09/13/19 09/13/19 09/13/19 11:15 11:30 11:45 Temperature Pulse Rate 83 84 84 Respiratory Rate Blood Pressure 100/56 104/55 107/55 O2 Sat by Pulse Oximetry 09/13/19 09/13/19 09/13/19 12:00 12:15 12:30 Temperature Pulse Rate 90 90 93 H Respiratory Rate Blood Pressure 107/66 112/63 112/63 O2 Sat by Pulse Oximetry 09/13/19 09/13/19 09/13/19 12:45 13:00 13:20 Temperature Pulse Rate 89 80 82 Respiratory Rate Blood Pressure 110/80 100/54 110/56 O2 Sat by Pulse Oximetry 09/13/19 13:30 Temperature 98.5 F Pulse Rate 80 Respiratory 18 Rate Blood Pressure 112/60 O2 Sat by Pulse Oximetry General appearance: Present: no acute distress, well-nourished - EENT Eyes: PERRL, EOM intact ENT: hearing intact, clear oral mucosa Ears: bilateral: normal - Neck Neck: supple, normal ROM - Respiratory Respiratory effort: normal Respiratory: bilateral: CTA - Breasts Breasts: normal - Cardiovascular Rhythm: regular Heart Sounds: Present: S1 & S2. Absent: gallop, rub Extremities: pulses intact, No edema, normal color, Full ROM - Gastrointestinal General gastrointestinal: Present: soft, non-tender, non-distended, normal bowel sounds - Genitourinary Female genitourinary: normal - Integumentary Integumentary: clear, warm, dry - Musculoskeletal Musculoskeletal: 1, strength equal bilaterally - Neurologic Neurologic: moves all extremities - Psychiatric Psychiatric: memory intact, appropriate mood/affect, intact judgment & insight - Labs CBC & Chem 7: 09/13/19 05:54 09/13/19 05:54 Labs: Abnormal lab results 09/12/19 09/13/19 09/13/19 Range/Units 10:40 05:54 05:54 WBC 3.9 L (4.5-11.0) K/mm3 RBC 3.35 L (3.65-5.03) M/mm3 Hgb 9.5 L (10.1-14.3) gm/dl Hct 29.5 L D (30.3-42.9) % RDW 18.0 H (13.2-15.2) % Lymph % (Auto) 37.9 H (13.4-35.0) % Potassium 3.5 L (3.6-5.0) mmol/L Carbon Dioxide 21 L (22-30) mmol/L BUN 24 H (7-17) mg/dL Creatinine 3.7 H (0.7-1.2) mg/dL Crossmatch See Detail
--- NOTE | 2019-09-13 17:14 | Progress Note ---
Assessment and Plan - Patient Problems (1) ESRD (end stage renal disease) on dialysis Current Visit: Yes Status: Chronic Plan to address problem: esrd on dialysis continue HD TTS (2) Anemia in chronic kidney disease Current Visit: No Status: Acute Plan to address problem: moderate anemia Hb: 7.4g/dl Status post blood transfusion continue epogen. (3) Hypotension Current Visit: No Status: Acute Qualifiers: Hypotension type: unspecified hypotension type Qualified Code(s): I95.9 - Hypotension, unspecified Plan to address problem: Hypotension Continue midodrine to 15mg tid patient has chronically low blood pressures. wean off levophed , goal Map should be around 60 not greater as long as patient is asymptomatic. (4) Hypokalemia Current Visit: Yes Status: Acute Plan to address problem: Hyperkalemia improved Will use 4K bath Please do not aggressively replete potassium in this patient who is often non coperative and can refuse dialysis Avoid Iatrogenic Hyperkalemia! Subjective Principal diagnosis: Septic shock, ESRD, sacral decubitus ulcer Interval history: 64 year old with ESRD on hemodialysis on Sun sat at [facility] admitted with AMS and hypotension patient seen today, denies any orthopnea or PND. Patient completed dialysis Objective - Vital Signs Vital signs: Vital Signs - 12hr 09/13/19 09/13/19 09/13/19 08:17 09:00 10:20 Temperature 98.1 F 98.0 F Pulse Rate 79 89 Respiratory 18 20 18 Rate Blood Pressure 102/54 110/48 O2 Sat by Pulse 95 95 Oximetry 09/13/19 09/13/19 09/13/19 10:30 10:45 11:00 Temperature Pulse Rate 82 81 80 Respiratory Rate Blood Pressure 112/53 104/56 110/56 O2 Sat by Pulse Oximetry 09/13/19 09/13/19 09/13/19 11:15 11:30 11:45 Temperature Pulse Rate 83 84 84 Respiratory Rate Blood Pressure 100/56 104/55 107/55 O2 Sat by Pulse Oximetry 09/13/19 09/13/19 09/13/19 12:00 12:15 12:30 Temperature Pulse Rate 90 90 93 H Respiratory Rate Blood Pressure 107/66 112/63 112/63 O2 Sat by Pulse Oximetry 09/13/19 09/13/19 09/13/19 12:45 13:00 13:20 Temperature Pulse Rate 89 80 82 Respiratory Rate Blood Pressure 110/80 100/54 110/56 O2 Sat by Pulse Oximetry 09/13/19 13:30 Temperature 98.5 F Pulse Rate 80 Respiratory 18 Rate Blood Pressure 112/60 O2 Sat by Pulse Oximetry - General Appearance General appearance: well-developed, well-nourished EENT: ATNC, PERRL, mucous membranes moist Neck: no JVD Respiratory: Present: Clear to Ascultation Cardiology: regular, S1S2 Gastrointestinal: normal, normoactive bowel sounds Integumentary: no rash Neurologic: alert and oriented x3, CN 3-12 intact Psychiatric: mood/affect appropriate - Lab 09/13/19 05:54 09/13/19 05:54 Most recent lab results Calcium 9.4 mg/dL (8.4-10.2) 09/13/19 05:54 - Imaging Chest x-ray: image reviewed (reviewed chest x-ray) Medications & Allergies - Medications Allergies/Adverse Reactions: Allergies Penicillins Allergy (Verified 02/06/17 13:29) Rash corn Adverse Reaction (Verified 05/14/19 15:01) Unknown Home Medications: Home Medications Medication Instructions Recorded Confirmed Last Taken Type clonazePAM [KlonoPIN] 0.5 mg PO QHS #14 tablet 05/22/19 09/07/19 Unknown Rx Divalproex ER [Depakote ER] 1,500 mg PO HS 05/29/19 09/07/19 Unknown History Divalproex ER [Depakote ER] 500 mg PO QAM 05/29/19 09/07/19 Unknown History Acetaminophen [Acetaminophen TAB] 650 mg PO Q4H PRN tablet 06/03/19 09/07/19 Unknown Rx Calcium Acetate [Phoslo] 667 mg PO TID 08/20/19 09/07/19 Unknown History LORazepam [Ativan] 1 mg PO BID 08/20/19 09/07/19 Unknown History Memantine Xr [Namenda Xr] 5 mg PO DAILY 08/20/19 09/07/19 Unknown History Midodrine [Proamatine] 10 mg PO TID 08/20/19 09/07/19 Unknown History QUEtiapine [SEROquel] 400 mg PO QHS 08/20/19 09/07/19 Unknown History Active Medications: Generic Name Dose Route Start Last Admin Trade Name Freq PRN Reason Stop Dose Admin Acetaminophen 650 mg 09/07/19 18:42 Tylenol PO Q4H PRN Pain MILD(1-3)/Fever >100.5/DRAKE Calcium Acetate 667 mg 09/07/19 20:00 09/13/19 17:02 Phoslo PO 667 mg TID CONNOR Administration Divalproex Sodium 500 mg 09/08/19 10:00 09/13/19 09:46 Depakote Er PO 500 mg QAM CONNOR Administration Divalproex Sodium 1,500 mg 09/07/19 22:00 09/12/19 22:37 Depakote Er PO 1,500 mg HS CONNOR Administration Epoetin Lb 10,000 unit 09/08/19 12:32 09/13/19 13:15 Procrit IV 10,000 unit BIANCA PRN Administration hemodialysis Famotidine 10 mg 09/07/19 22:00 09/13/19 09:47 Pepcid PO 10 mg DAILY CONNOR Administration Heparin Sodium (Porcine) 5,000 unit 09/07/19 22:00 09/13/19 09:47 Heparin SUB-Q 5,000 unit Q12HR CONNOR Administration Heparin Sodium (Porcine) 3,000 unit 09/08/19 12:32 Heparin 10,000 Units/10 Ml IV BIANCA PRN hemodialysis Hydromorphone HCl 0.25 mg 09/07/19 18:44 09/08/19 06:15 Dilaudid IV 0.25 mg Q3H PRN Administration Pain, Moderate (4-6) Cefepime HCl 1 gm in 100 mls @ 200 mls/hr 09/07/19 20:00 09/12/19 22:27 Cefepime/Ns 1 Gm/100 Ml IV 200 mls/hr Q24H CONNOR Administration Protocol Sodium Chloride 100 mls @ 999 mls/hr 09/08/19 12:32 Nacl 0.9% IV BIANCA PRN Hypotension Norepinephrine 4 mg in 250 mls @ 7.5 mls/hr 09/11/19 13:21 09/12/19 14:00 Levophed Drip 4 Mg/Ns 250 Ml IV 0 mcg/min TITR CONNOR 0 mls/hr Titration Protocol 2 MCG/MIN Lorazepam 1 mg 09/07/19 22:00 09/13/19 09:47 Ativan PO 1 mg BID CONNOR Administration Memantine 5 mg 09/08/19 10:00 09/13/19 09:47 Memantine PO 5 mg DAILY CONNOR Administration Midodrine 10 mg 09/07/19 20:00 09/13/19 17:02 Proamatine PO 10 mg TID CONNOR Administration Ondansetron HCl 4 mg 09/07/19 18:44 Zofran IV Q8H PRN Nausea And Vomiting Paricalcitol 0.5 mcg 09/08/19 12:32 09/13/19 13:30 Zemplar IV 0.5 mcg BIANCA PRN Administration hemodialysis Quetiapine Fumarate 400 mg 09/07/19 22:00 09/12/19 22:00 Seroquel PO Not Given QHS CONNOR Sodium Chloride 10 ml 09/07/19 22:00 09/13/19 17:06 Sodium Chloride Flush Syringe 10 Ml IV 10 ml BID CONNOR Administration Sodium Chloride 10 ml 09/07/19 18:44 09/11/19 10:03 Sodium Chloride Flush Syringe 10 Ml IV 10 ml PRN PRN Administration LINE FLUSH
[2019-09-13] MEDS: QUEtiapine 200 MG TAB PO SCH (21:17)
[2019-09-14 08:15] LABS: Basophils % (Auto) 1.4 % (0.0-1.8); Eosinophils # (Auto) 0.1 K/mm3 (0.0-0.4); Eosinophils % (Auto) 1.9 % (0.0-4.3); Hematocrit 31.6 % (30.3-42.9); Hemoglobin 9.7 gm/dl (10.1-14.3); Lymphocytes # (Auto) 1.1 K/mm3 (1.2-5.4); Lymphocytes % (Auto) 40.4 % (13.4-35.0); Mean Corpuscular HGB Conc 31 % (30-34); Mean Corpuscular Volume 90 fl (79-97); Monocytes # (Auto) 0.3 K/mm3 (0.0-0.8); Platelet Count 155 K/mm3 (140-440); Red Cell Distribution Width 18.8 % (13.2-15.2)
[2019-09-14 08:37] LABS: Calcium 9.1 mg/dL (8.4-10.2)
--- NOTE | 2019-09-14 09:22 | Progress Note ---
Assessment and Plan Assessment and plan: --Septic shock Current Visit: Yes Status: Acute s/p septic shock Secondary to urinary tract infection Patient initiated on IV cefepime and vancomycin pending cultures Was given aztreonam in the ER. Patient has penicillin allergy but there should not be be much cross-reactivity with cefepime IV vancomycin Off pressors --Acute encephalopathy Current Visit: Yes Status: Acute Sec to sepsis Uremia and UTi Improved -- ESRD (end stage renal disease) on dialysis Current Visit: Yes Status: Chronic Nephrology consulted Continue hemodialysis as per schedule Less ultrafiltration because of hyper tension -- UTI (urinary tract infection) Current Visit: Yes Status: Acute IV cefepime for now and vancomycin -- Hypotension Current Visit: No Status: Acute IV fluids and pressors Still on pressors --Sacral decubitus ulcer Current Visit: Yes Status: Chronic Wound care consult requested -- Seizure disorder Current Visit: Yes Status: Acute Plan to address problem: Continue Depakote Check Depakote level -- Tremors of nervous system Current Visit: Yes Status: Chronic Possible Parkinson's Neurology consulted -- Schizophrenia Current Visit: Yes Status: Chronic On Seroquel. Continue Seroquel --DVT prophylaxis Current Visit: Yes Status: Acute On heparin and GI prophylaxis History Interval history: Patient seen and examined medical records reviewed Patient feels slightly better, no new complaints Vital signs noted Hospitalist Physical - Constitutional Vitals: Temp Pulse Resp BP Pulse Ox 98.1 F 73 18 113/50 97 09/14/19 02:56 09/14/19 02:56 09/14/19 02:56 09/14/19 02:56 09/14/19 02:56 General appearance: Present: no acute distress, well-nourished - EENT Eyes: Present: PERRL, EOM intact - Neck Neck: Present: supple, normal ROM - Respiratory Respiratory effort: normal Respiratory: bilateral: diminished, negative: rales, rhonchi, wheezing - Cardiovascular Rhythm: regular Heart Sounds: Present: S1 & S2 - Extremities Extremities: no ischemia, No edema - Abdominal General gastrointestinal: soft, non-tender, non-distended, normal bowel sounds - Integumentary Integumentary: Present: clear, warm - Psychiatric Psychiatric: appropriate mood/affect, cooperative - Neurologic Neurologic: CNII-XII intact, moves all extremities Results - Labs CBC & Chem 7: 09/14/19 07:17 09/14/19 07:17 Labs: Laboratory Last Values WBC 2.8 K/mm3 (4.5-11.0) L 09/14/19 07:17 RBC 3.50 M/mm3 (3.65-5.03) L 09/14/19 07:17 Hgb 9.7 gm/dl (10.1-14.3) L 09/14/19 07:17 Hct 31.6 % (30.3-42.9) 09/14/19 07:17 MCV 90 fl (79-97) 09/14/19 07:17 MCH 28 pg (28-32) 09/14/19 07:17 MCHC 31 % (30-34) 09/14/19 07:17 RDW 18.8 % (13.2-15.2) H 09/14/19 07:17 Plt Count 155 K/mm3 (140-440) 09/14/19 07:17 Lymph % (Auto) 40.4 % (13.4-35.0) H 09/14/19 07:17 [place] % (Auto) 11.0 % (0.0-7.3) H 09/14/19 07:17 Eos % (Auto) 1.9 % (0.0-4.3) 09/14/19 07:17 Baso % (Auto) 1.4 % (0.0-1.8) 09/14/19 07:17 Lymph # 1.1 K/mm3 (1.2-5.4) L 09/14/19 07:17 [place] # 0.3 K/mm3 (0.0-0.8) 09/14/19 07:17 Eos # 0.1 K/mm3 (0.0-0.4) 09/14/19 07:17 Baso # 0.0 K/mm3 (0.0-0.1) 09/14/19 07:17 Add Manual Diff Complete 09/12/19 05:00 Total Counted 100 09/12/19 05:00 Seg Neutrophils % 45.3 % (40.0-70.0) 09/14/19 07:17 Seg Neuts % (Manual) 54.0 % (40.0-70.0) 09/12/19 05:00 Band Neutrophils % 0 % 09/12/19 05:00 Lymphocytes % (Manual) 36.0 % (13.4-35.0) H 09/12/19 05:00 Reactive Lymphs % (Man) 1.0 % 09/12/19 05:00 Monocytes % (Manual) 6.0 % (0.0-7.3) 09/12/19 05:00 Eosinophils % (Manual) 2.0 % (0.0-4.3) 09/12/19 05:00 Basophils % (Manual) 0 % (0.0-1.8) 09/12/19 05:00 Metamyelocytes % 1.0 % 09/12/19 05:00 Myelocytes % 0 % 09/12/19 05:00 Promyelocytes % 0 % 09/12/19 05:00 Blast Cells % 0 % 09/12/19 05:00 Nucleated RBC % 1.0 % (0.0-0.9) H 09/12/19 05:00 Seg Neutrophils # 1.3 K/mm3 (1.8-7.7) L 09/14/19 07:17 Seg Neutrophils # Man 1.8 K/mm3 (1.8-7.7) 09/12/19 05:00 Band Neutrophils # 0.0 K/mm3 09/12/19 05:00 Lymphocytes # (Manual) 1.2 K/mm3 (1.2-5.4) 09/12/19 05:00 Abs React Lymphs (Man) 0.0 K/mm3 09/12/19 05:00 Monocytes # (Manual) 0.2 K/mm3 (0.0-0.8) 09/12/19 05:00 Eosinophils # (Manual) 0.1 K/mm3 (0.0-0.4) 09/12/19 05:00 Basophils # (Manual) 0.0 K/mm3 (0.0-0.1) 09/12/19 05:00 Metamyelocytes # 0.0 K/mm3 09/12/19 05:00 Myelocytes # 0.0 K/mm3 09/12/19 05:00 Promyelocytes # 0.0 K/mm3 09/12/19 05:00 Blast Cells # 0.0 K/mm3 09/12/19 05:00 WBC Morphology Not Reportable 09/12/19 05:00 Hypersegmented Neuts Not Reportable 09/12/19 05:00 Hyposegmented Neuts Not Reportable 09/12/19 05:00 Hypogranular Neuts Not Reportable 09/12/19 05:00 Smudge Cells Not Reportable 09/12/19 05:00 Toxic Granulation Not Reportable 09/12/19 05:00 Toxic Vacuolation Not Reportable 09/12/19 05:00 Dohle Bodies Not Reportable 09/12/19 05:00 Pelger-Huet Anomaly Not Reportable 09/12/19 05:00 Ubaldo Rods Not Reportable 09/12/19 05:00 Platelet Estimate Consistent w auto 09/12/19 05:00 Clumped Platelets Not Reportable 09/12/19 05:00 Plt Clumps, EDTA Not Reportable 09/12/19 05:00 Large Platelets Not Reportable 09/12/19 05:00 Giant Platelets Not Reportable 09/12/19 05:00 Platelet Satelliting Not Reportable 09/12/19 05:00 Plt Morphology Comment Not Reportable 09/12/19 05:00 RBC Morphology Not Reportable 09/12/19 05:00 Dimorphic RBCs Not Reportable 09/12/19 05:00 Polychromasia Not Reportable 09/12/19 05:00 Hypochromasia 1+ 09/12/19 05:00 Poikilocytosis Not Reportable 09/12/19 05:00 Anisocytosis 2+ 09/12/19 05:00 Microcytosis 1+ 09/12/19 05:00 Macrocytosis 1+ 09/12/19 05:00 Spherocytes Not Reportable 09/12/19 05:00 Pappenheimer Bodies Not Reportable 09/12/19 05:00 Sickle Cells Not Reportable 09/12/19 05:00 Target Cells 1+ 09/12/19 05:00 Tear Drop Cells Not Reportable 09/12/19 05:00 Ovalocytes Not Reportable 09/12/19 05:00 Helmet Cells Not Reportable 09/12/19 05:00 Rangel-Bel-Nor Bodies Not Reportable 09/12/19 05:00 [place] Rings Not Reportable 09/12/19 05:00 Sartell Cells Not Reportable 09/12/19 05:00 Bite Cells Not Reportable 09/12/19 05:00 Crenated Cell Not Reportable 09/12/19 05:00 Elliptocytes Not Reportable 09/12/19 05:00 Acanthocytes (Spur) Not Reportable 09/12/19 05:00 Rouleaux Not Reportable 09/12/19 05:00 Hemoglobin C Crystals Not Reportable 09/12/19 05:00 Schistocytes Not Reportable 09/12/19 05:00 Malaria parasites Not Reportable 09/12/19 05:00 Torrey Bodies Not Reportable 09/12/19 05:00 Hem Pathologist Commnt No 09/12/19 05:00 APTT 28.0 Sec. (24.2-36.6) 09/07/19 12:45 VBG pH 7.333 (7.320-7.420) 09/07/19 12:45 Sodium 141 mmol/L (137-145) 09/14/19 07:17 Potassium 3.9 mmol/L (3.6-5.0) 09/14/19 07:17 Chloride 106.2 mmol/L (98-107) 09/14/19 07:17 Carbon Dioxide 21 mmol/L (22-30) L 09/14/19 07:17 Anion Gap 18 mmol/L 09/14/19 07:17 BUN 18 mg/dL (7-17) H 09/14/19 07:17 Creatinine 2.9 mg/dL (0.7-1.2) H 09/14/19 07:17 Estimated GFR 20 ml/min 09/14/19 07:17 BUN/Creatinine Ratio 6 % 09/14/19 07:17 Glucose 75 mg/dL (65-100) 09/14/19 07:17 POC Glucose 163 (70-105) H 09/10/19 05:19 Hemoglobin A1c 5.3 % (4-6) 09/07/19 20:10 Lactic Acid 1.30 mmol/L (0.7-2.0) 09/07/19 17:03 Calcium 9.1 mg/dL (8.4-10.2) 09/14/19 07:17 Total Bilirubin 0.30 mg/dL (0.1-1.2) 09/08/19 04:00 AST 24 units/L (5-40) 09/08/19 04:00 ALT 18 units/L (7-56) 09/08/19 04:00 Alkaline Phosphatase 96 units/L (35-129) 09/08/19 04:00 Total Protein 5.6 g/dL (6.3-8.2) L 09/08/19 04:00 Albumin 2.4 g/dL (3.9-5) L 09/08/19 04:00 Albumin/Globulin Ratio 0.8 % 09/08/19 04:00 Urine Color Sarah (Yellow) 09/07/19 13:45 Urine Turbidity Cloudy (Clear) 09/07/19 13:45 Urine pH 5.0 (5.0-7.0) 09/07/19 13:45 Ur Specific [place] 1.019 (1.003-1.030) 09/07/19 13:45 Urine Protein >500 mg/dL (Negative) 09/07/19 13:45 Urine Glucose (UA) Neg mg/dL (Negative) 09/07/19 13:45 Urine Ketones Tr mg/dL (Negative) 09/07/19 13:45 Urine Blood Sm (Negative) 09/07/19 13:45 Urine Nitrite Neg (Negative) 09/07/19 13:45 Urine Bilirubin Neg (Negative) 09/07/19 13:45 Urine Urobilinogen 2.0 mg/dL (<2.0) 09/07/19 13:45 Ur Leukocyte Esterase Mod (Negative) 09/07/19 13:45 Urine WBC (Auto) > 182.0 /HPF (0.0-6.0) H 09/07/19 13:45 Urine RBC (Auto) 10.0 /HPF (0.0-6.0) 09/07/19 13:45 U Epithel Cells (Auto) 6.0 /HPF (0-13.0) 09/07/19 13:45 Urine Bacteria (Auto) 1+ /HPF (Negative) 09/07/19 13:45 Urine WBC Clumps 3+ /HPF 09/07/19 13:45 Urine Mucus Few /HPF 09/07/19 13:45 Random Vancomycin 10.5 ug/mL (0-40.0) 09/10/19 06:00 Valproic Acid < 2.8 ug/mL (50-100) L 09/07/19 20:10 Hepatitis A IgM Ab Non-reactive (NonReactive) 09/08/19 10:52 Hep Bs Antigen Non-reactive (Negative) 09/08/19 10:52 Hep B Core IgM Ab Non-reactive (NonReactive) 09/08/19 10:52 Hepatitis C Antibody Non-reactive (NonReactive) 09/08/19 10:52 Blood Type A POSITIVE 09/12/19 10:40 Antibody Screen Negative 09/12/19 10:40 Crossmatch See Detail 09/12/19 10:40 Active Medications - Current Medications Current Medications: Generic Name Dose Route Start Last Admin Trade Name Freq PRN Reason Stop Dose Admin Acetaminophen 650 mg 09/07/19 18:42 09/14/19 02:41 Tylenol PO 650 mg Q4H PRN Administration Pain MILD(1-3)/Fever >100.5/DRAKE Calcium Acetate 667 mg 09/14/19 09:00 Phoslo PO TIDWM CONNOR Divalproex Sodium 500 mg 09/08/19 10:00 09/13/19 09:46 Depakote Er PO 500 mg QAM CONNOR Administration Divalproex Sodium 1,500 mg 09/07/19 22:00 09/13/19 21:15 Depakote Er PO Not Given HS CONNOR Epoetin Lb 10,000 unit 09/08/19 12:32 09/13/19 13:15 Procrit IV 10,000 unit BIANCA PRN Administration hemodialysis Famotidine 10 mg 09/07/19 22:00 09/13/19 09:47 Pepcid PO 10 mg DAILY CONNOR Administration Heparin Sodium (Porcine) 5,000 unit 09/07/19 22:00 09/13/19 21:15 Heparin SUB-Q 5,000 unit Q12HR CONNOR Administration Heparin Sodium (Porcine) 3,000 unit 09/08/19 12:32 Heparin 10,000 Units/10 Ml IV BIANCA PRN hemodialysis Hydromorphone HCl 0.25 mg 09/07/19 18:44 09/08/19 06:15 Dilaudid IV 0.25 mg Q3H PRN Administration Pain, Moderate (4-6) Sodium Chloride 100 mls @ 999 mls/hr 09/08/19 12:32 Nacl 0.9% IV BIANCA PRN Hypotension Lorazepam 1 mg 09/07/19 22:00 09/13/19 21:15 Ativan PO Not Given BID CONNOR Memantine 5 mg 09/08/19 10:00 09/13/19 09:47 Memantine PO 5 mg DAILY CONNOR Administration Midodrine 10 mg 09/07/19 20:00 09/13/19 20:34 Proamatine PO Not Given TID CONNOR Ondansetron HCl 4 mg 09/07/19 18:44 Zofran IV Q8H PRN Nausea And Vomiting Paricalcitol 0.5 mcg 09/08/19 12:32 09/13/19 13:30 Zemplar IV 0.5 mcg BIANCA PRN Administration hemodialysis Quetiapine Fumarate 400 mg 09/07/19 22:00 09/13/19 21:17 Seroquel PO Not Given QHS CONNOR Sodium Chloride 10 ml 09/07/19 22:00 09/13/19 21:18 Sodium Chloride Flush Syringe 10 Ml IV 10 ml BID CONNOR Administration Sodium Chloride 10 ml 09/07/19 18:44 09/11/19 10:03 Sodium Chloride Flush Syringe 10 Ml IV 10 ml PRN PRN Administration LINE FLUSH Nutrition/Malnutrition Assess - Dietary Evaluation Nutrition/Malnutrition Findings: Nutrition Notes Start: 09/09/19 12:14 Freq: Status: Active Protocol: Document 09/11/19 11:39 LM (Rec: 09/11/19 11:47 LM [id number]) Nutrition Notes Initial or Follow up Reassessment Current Diagnosis CKD (stage V CKD) Other Pertinent Diagnosis on HD (T,T,S), sacral ulcer, HTN, dementia Current Diet Renal diet with Nepro Labs/Tests BUN 28 Cr 4.1 BG 127 Pertinent Medications levophed Phoslo Height 5 ft 5 in Weight 68 kg [place] Body Weight (kg) 56.81 BMI 24.9 Subjective/Other Information Pt did not eat her breakfast this AM. Pt stated that she does not have appetite. Pt stated she has been drinking Nepro. Will increase Nepro to TID. Percent of energy/protein needs met: 58%/46% Burn Absent Trauma Absent Minimum of two criteria No physical signs of malnutrition #1 Nutrition Diagnosis Inadequate energy intake Diagnosis Progress(for reassessment Continues documentation) Is patient on ventilator? No Is Patient Ambulatory and/or Out of Bed No REE-([place]-St. Jeor-confined to bed) 5006.182 Calculation Used for Recommendations [facility] Additional Notes Pro needs: >82g/day (>1.2g/kg) Fluid needs: 1-1.5 L/day or per MD Nutrition Intervention Change Diet Order: Continue renal diet Add Supplement/Snack (indicate name/kcal Nepro TID /protein ) Provides kCal: 1,275 Provides Protein (gm) 57 Goal #1 Pt to consume at least 80% of estimated protein and energy needs via PO and ONS intakes Anticipated Discharge Needs: Renal diet with ONS PRN Follow-Up By: 09/15/19 Additional Comments F/U for PO/ONS intakes
[2019-09-14] MEDS: LORazepam 1 MG TAB PO SCH ×2 (11:06→22:46)
[2019-09-14] MEDS: CALCIUM ACETATE 667 MG CAP PO SCH ×3 (11:06→17:29)
[2019-09-14] MEDS: FAMOTIDINE 10 MG TAB PO SCH (11:06)
[2019-09-14] MEDS: HEPARIN 5,000 UNIT/1 ML VIAL SUB-Q SCH ×2 (11:08→21:14)
[2019-09-14] MEDS: DIVALPROEX ER 500 MG TAB PO SCH ×3 (11:40→22:47)
[2019-09-14] MEDS: MEMANTINE 5 MG TAB PO SCH (11:40)
[2019-09-14] MEDS: MIDODRINE 5 MG TAB PO SCH ×3 (11:40→21:13)
--- NOTE | 2019-09-14 14:02 | Progress Note ---
Assessment and Plan mp: 1. Pyuria -> probable UTI 2. Severe sepsis with septic shock 3. ESRD 4. Lactic acidosis 5. Mild L basilar atelectasis 6. Bicytopenia, ? due to antibiotics Rec: 1. Wean pressors to keep MAP > 65; cont. Midodrine; can tolerate MAP of 55 or > given chronic hypotension 2. Cultures negative; complete a course of Cefipime; consider ID eval. if persistent hypotension 3. HD per renal 4. SubQ heparin; monitor platelets 5. Further plans pending clinical course 6. No PICC per renal 7. Defer K correction/repletion to renal 8. Complex decision-making Pulmonary conner stable will sign off thank you Subjective Date of service: 09/14/19 Principal diagnosis: Septic shock, ESRD, sacral decubitus ulcer Interval history: Patient sleeping no difficulty breathing Objective Vital Signs - 12hr 09/14/19 09/14/19 09/14/19 02:56 07:40 10:00 Temperature 98.1 F 97.5 F L Pulse Rate 73 78 Respiratory 18 18 Rate Blood Pressure 111/61 Blood Pressure 113/50 [Right] O2 Sat by Pulse 97 96 97 Oximetry Constitutional: no acute distress, alert Eyes: non-icteric ENT: oropharynx moist Neck: supple Effort: normal Ascultation: Bilateral: clear Cardiovascular: regular rate and rhythm (no mrg) Gastrointestinal: normoactive bowel sounds, soft, non-tender, non-distended, other (benign exam) Extremities: no cyanosis, no edema, pink and warm, other (L foot examined -> warm without obvious rashes/cellulitis/lesions, etc.) Neurologic: normal mental status, non-focal exam, pupils equal and round Psychiatric: mood appropriate, affect normal CBC and BMP: 09/14/19 07:17 09/14/19 07:17 Abnormal lab findings: Abnormal Labs 09/07/19 09/07/19 09/07/19 12:45 12:45 13:45 WBC RBC Hgb Hct RDW Plt Count Lymph % (Auto) Motley % (Auto) Lymph # Motley # Seg Neutrophils % Lymphocytes % (Manual) Nucleated RBC % Seg Neutrophils # Potassium 3.3 L Chloride Carbon Dioxide 18 L BUN 25 H Creatinine 5.6 H Glucose 129 H POC Glucose Lactic Acid 2.70 H* Total Protein 5.1 L Albumin 2.2 L Urine WBC (Auto) > 182.0 H Valproic Acid Crossmatch 09/07/19 09/07/19 09/08/19 15:38 20:10 04:00 WBC 13.2 H RBC 3.07 L 2.79 L Hgb 8.6 L 8.1 L Hct 28.8 L 25.5 L RDW 20.4 H 20.4 H Plt Count Lymph % (Auto) 3.3 L 5.2 L Motley % (Auto) 15.6 H Lymph # 0.4 L 0.6 L Motley # 2.1 H Seg Neutrophils % 80.8 H 87.1 H Lymphocytes % (Manual) Nucleated RBC % Seg Neutrophils # 10.7 H 9.5 H Potassium Chloride Carbon Dioxide BUN Creatinine Glucose POC Glucose Lactic Acid Total Protein Albumin Urine WBC (Auto) Valproic Acid < 2.8 L Crossmatch 09/08/19 09/10/19 09/11/19 04:00 05:19 06:00 WBC 3.3 L RBC 2.63 L Hgb 7.4 L Hct 23.5 L RDW 20.0 H Plt Count Lymph % (Auto) 39.7 H Motley % (Auto) Lymph # Motley # Seg Neutrophils % Lymphocytes % (Manual) Nucleated RBC % Seg Neutrophils # 1.6 L Potassium Chloride 109.1 H Carbon Dioxide 15 L BUN 33 H Creatinine 5.5 H Glucose 137 H POC Glucose 163 H Lactic Acid Total Protein 5.6 L Albumin 2.4 L Urine WBC (Auto) Valproic Acid Crossmatch 09/11/19 09/12/19 09/12/19 06:00 05:00 05:00 WBC 3.4 L RBC 2.47 L Hgb 7.0 L Hct 21.9 L RDW 19.7 H Plt Count 120 L Lymph % (Auto) Motley % (Auto) Lymph # Motley # Seg Neutrophils % Lymphocytes % (Manual) 36.0 H Nucleated RBC % 1.0 H Seg Neutrophils # Potassium 3.3 L 3.1 L Chloride 109.7 H Carbon Dioxide 20 L BUN 28 H Creatinine 4.1 H 2.8 H Glucose 127 H POC Glucose Lactic Acid Total Protein Albumin Urine WBC (Auto) Valproic Acid Crossmatch 09/12/19 09/13/19 09/13/19 10:40 05:54 05:54 WBC 3.9 L RBC 3.35 L Hgb 9.5 L Hct 29.5 L D RDW 18.0 H Plt Count Lymph % (Auto) 37.9 H Motley % (Auto) Lymph # Motley # Seg Neutrophils % Lymphocytes % (Manual) Nucleated RBC % Seg Neutrophils # Potassium 3.5 L Chloride Carbon Dioxide 21 L BUN 24 H Creatinine 3.7 H Glucose POC Glucose Lactic Acid Total Protein Albumin Urine WBC (Auto) Valproic Acid Crossmatch See Detail 09/14/19 09/14/19 07:17 07:17 WBC 2.8 L RBC 3.50 L Hgb 9.7 L Hct RDW 18.8 H Plt Count Lymph % (Auto) 40.4 H Motley % (Auto) 11.0 H Lymph # 1.1 L Motley # Seg Neutrophils % Lymphocytes % (Manual) Nucleated RBC % Seg Neutrophils # 1.3 L Potassium Chloride Carbon Dioxide 21 L BUN 18 H Creatinine 2.9 H Glucose POC Glucose Lactic Acid Total Protein Albumin Urine WBC (Auto) Valproic Acid Crossmatch
[2019-09-14] MEDS: QUEtiapine 200 MG TAB PO SCH (21:14)
[2019-09-15 05:58] LABS: Basophils % (Auto) 1.1 % (0.0-1.8); Eosinophils # (Auto) 0.1 K/mm3 (0.0-0.4); Eosinophils % (Auto) 1.7 % (0.0-4.3); Hemoglobin 10.3 gm/dl (10.1-14.3); Lymphocytes # (Auto) 1.2 K/mm3 (1.2-5.4); Lymphocytes % (Auto) 35.4 % (13.4-35.0); Mean Corpuscular HGB Conc 31 % (30-34); Mean Corpuscular Volume 91 fl (79-97); Monocytes # (Auto) 0.3 K/mm3 (0.0-0.8); Monocytes % (Auto) 8.7 % (0.0-7.3); Platelet Count 206 K/mm3 (140-440); Red Blood Count 3.61 M/mm3 (3.65-5.03); Red Cell Distribution Width 18.9 % (13.2-15.2)
[2019-09-15] MEDS: MIDODRINE 5 MG TAB PO SCH ×2 (07:53→13:36)
[2019-09-15] MEDS: CALCIUM ACETATE 667 MG CAP PO SCH ×2 (07:58→12:42)
[2019-09-15] MEDS: MEMANTINE 5 MG TAB PO SCH (09:41)
[2019-09-15] MEDS: DIVALPROEX ER 500 MG TAB PO SCH (09:41)
[2019-09-15] MEDS: HEPARIN 5,000 UNIT/1 ML VIAL SUB-Q SCH (09:41)
[2019-09-15] MEDS: FAMOTIDINE 10 MG TAB PO SCH (09:41)
[2019-09-15] MEDS: LORazepam 1 MG TAB PO SCH (09:41)
--- NOTE | 2019-09-15 09:50 | Progress Note ---
Assessment and Plan This is a 64 yo woman with a ESRD on HD who presents to [facility] ED with fevers, AMS, low blood pressure who was admitted to ICU for septic shock from UTI requiring Levophed gtt. # ESRD: will plan to continue HD // or prn if stable; no indication for HD today given lytes and volume, due for HD tomorrow - avoid nephrotoxins - renal diet - renally dose meds - daily labs # Acidosis: likely ESRD + lactic acidosis, will follow and provide renal replacement prn # Anemia: in setting of ESRD and acute illness; will continue ESAs with HD as indicated for hemoglobin <9; hemoglobin has now improved to 10.3 # Secondary Hyperparathyroidism: continue vitamin D analogs with HD, binders as indicated # Septic Shock/Hypotension: hold all home BP meds, antibiotics per primary. Continue midodrine. Limit UF with HD, will change dialysis settings to minimize hypotension. Subjective Date of service: 09/15/19 Principal diagnosis: Septic shock, ESRD, sacral decubitus ulcer Interval history: No acute events noted overnight. No concerns this AM- eating breakfast. Denies any recent issues with dialysis. Objective - Exam Narrative Exam: Gen: chronically frail appearing, tired appearing, no acute distress HEENT: NCAT, EOMI Neck: supple, RIJ CVC noted C/D/i CVS/Heart: Regular rate, normal S1S2, pulses present bilaterally Chest/Lungs: CTAB GI/Abdomen: soft, NTND, good bowel sounds, no guarding or rebound Extermity/Skin: intact MSK: FROM x 4 Neuro: CN 3-12 grossly intact, no focal deficits, little drowsy Psych: calm - Vital Signs Vital signs: Vital Signs - 12hr 09/15/19 09/15/19 02:02 07:23 Temperature 98.3 F 98.5 F Pulse Rate 80 82 Respiratory 18 20 Rate Blood Pressure 88/61 109/53 O2 Sat by Pulse 94 94 Oximetry - Lab 09/15/19 04:44 09/15/19 04:44 Most recent lab results Calcium 10.0 mg/dL (8.4-10.2) 09/15/19 04:44 Medications & Allergies - Medications Allergies/Adverse Reactions: Allergies Penicillins Allergy (Verified 02/06/17 13:29) Rash corn Adverse Reaction (Verified 05/14/19 15:01) Unknown Home Medications: Home Medications Medication Instructions Recorded Confirmed Last Taken Type clonazePAM [KlonoPIN] 0.5 mg PO QHS #14 tablet 05/22/19 09/07/19 Unknown Rx Divalproex ER [Depakote ER] 1,500 mg PO HS 05/29/19 09/07/19 Unknown History Divalproex ER [Depakote ER] 500 mg PO QAM 05/29/19 09/07/19 Unknown History Acetaminophen [Acetaminophen TAB] 650 mg PO Q4H PRN tablet 06/03/19 09/07/19 Unknown Rx Calcium Acetate [Phoslo] 667 mg PO TID 08/20/19 09/07/19 Unknown History LORazepam [Ativan] 1 mg PO BID 08/20/19 09/07/19 Unknown History Memantine Xr [Namenda Xr] 5 mg PO DAILY 08/20/19 09/07/19 Unknown History Midodrine [Proamatine] 10 mg PO TID 08/20/19 09/07/19 Unknown History QUEtiapine [SEROquel] 400 mg PO QHS 08/20/19 09/07/19 Unknown History Active Medications: Generic Name Dose Route Start Last Admin Trade Name Freq PRN Reason Stop Dose Admin Acetaminophen 650 mg 09/07/19 18:42 09/14/19 02:41 Tylenol PO 650 mg Q4H PRN Administration Pain MILD(1-3)/Fever >100.5/DRAKE Calcium Acetate 667 mg 09/14/19 09:00 09/15/19 07:58 Phoslo PO 667 mg TIDWM CONNOR Administration Divalproex Sodium 500 mg 09/08/19 10:00 09/14/19 11:40 Depakote Er PO 500 mg QAM CONNOR Administration Divalproex Sodium 1,500 mg 09/07/19 22:00 09/14/19 22:47 Depakote Er PO Not Given HS CONNOR Epoetin Lb 10,000 unit 09/08/19 12:32 09/13/19 13:15 Procrit IV 10,000 unit BIANCA PRN Administration hemodialysis Famotidine 10 mg 09/07/19 22:00 09/14/19 11:06 Pepcid PO 10 mg DAILY CONNOR Administration Heparin Sodium (Porcine) 5,000 unit 09/07/19 22:00 09/14/19 21:14 Heparin SUB-Q 5,000 unit Q12HR CONNOR Administration Heparin Sodium (Porcine) 3,000 unit 09/08/19 12:32 Heparin 10,000 Units/10 Ml IV BIANCA PRN hemodialysis Hydromorphone HCl 0.25 mg 09/07/19 18:44 09/08/19 06:15 Dilaudid IV 0.25 mg Q3H PRN Administration Pain, Moderate (4-6) Sodium Chloride 100 mls @ 999 mls/hr 09/08/19 12:32 Nacl 0.9% IV BIANCA PRN Hypotension Lorazepam 1 mg 09/07/19 22:00 09/14/19 22:46 Ativan PO Not Given BID CONNOR Memantine 5 mg 09/08/19 10:00 09/14/19 11:40 Memantine PO 5 mg DAILY CONNOR Administration Midodrine 10 mg 09/07/19 20:00 09/15/19 07:53 Proamatine PO 10 mg TID CONNOR Administration Ondansetron HCl 4 mg 09/07/19 18:44 Zofran IV Q8H PRN Nausea And Vomiting Paricalcitol 0.5 mcg 09/08/19 12:32 09/13/19 13:30 Zemplar IV 0.5 mcg BIANCA PRN Administration hemodialysis Quetiapine Fumarate 400 mg 09/07/19 22:00 09/14/19 21:14 Seroquel PO 400 mg QHS CONNOR Administration Sodium Chloride 10 ml 09/07/19 22:00 09/14/19 21:14 Sodium Chloride Flush Syringe 10 Ml IV 10 ml BID CONNOR Administration Sodium Chloride 10 ml 09/07/19 18:44 09/11/19 10:03 Sodium Chloride Flush Syringe 10 Ml IV 10 ml PRN PRN Administration LINE FLUSH
--- NOTE | 2019-09-15 13:36 | Discharge Summary ---
Providers - Providers Date of Admission: 09/07/19 17:09 Date of discharge: 09/15/19 Attending physician: TRACE ADDISON 09/07/19 16:35 Consult to Physician [CONS] Urgent Comment: Consulting Provider: LORENA ADORNO Physician Instructions: Reason For Exam: esrd, dialysis pt, sepsis 09/07/19 18:48 Consult to Wound/ET Nurse [CONS] Routine Reason For Exam: wound eval Primary care physician: RAILWAY EQUIPMENT OPERATOR Hospitalization Reason for admission: Fever and low blood pressure of 1 day duration Condition: Stable Hospital course: 64-year-old female with multiple medical problems presents with high temperature of 101.9 and low blood pressure from the care home. Patient also has altered mental status. Lethargic. Patient has end-stage renal disease with dialysis on Sunday, hypertension, drug-induced dyskinesia and dystonia, seizures, anxiety and hyperparathyroidism. In the emergency room patient blood pressure was ranging from 70/50 to 90/60. Central line was placed for possible use of pressors. Source of infection is urine which shows WBCs more than 182. Patient has a h eart rate of 140. Patient also has tremors in both hands at rest Medical medical records reviewed. Patient was recently admitted for sepsis and discharged in July 2019. Patient is alert and responsive but lethargic Purchasing Administrative Assistant is Dr. Love --Septic shock Current Visit: Yes Status: Acute s/p septic shock Secondary to urinary tract infection Patient received appropriate antibiotics Off pressors --Acute encephalopathy Current Visit: Yes Status: Acute Sec to sepsis Uremia and UTi Improved -- ESRD (end stage renal disease) on dialysis Current Visit: Yes Status: Chronic Nephrology consulted Continue hemodialysis as per schedule Less ultrafiltration because of hyper tension -- UTI (urinary tract infection) Current Visit: Yes Status: Acute IV cefepime for now and vancomycin -- Hypotension Current Visit: No Status: Acute IV fluids and pressors Still on pressors --Sacral decubitus ulcer Current Visit: Yes Status: Chronic Wound care consult requested -- Seizure disorder Current Visit: Yes Status: Acute Plan to address problem: Continue Depakote Check Depakote level -- Tremors of nervous system Current Visit: Yes Status: Chronic Possible Parkinson's Neurology consulted -- Schizophrenia Current Visit: Yes Status: Chronic On Seroquel. Continue Seroquel --DVT prophylaxis Current Visit: Yes Status: Acute On heparin and GI prophylaxis Disposition: DC/[place]-03 SN[facility] Time spent for discharge: 35 min Core Measure Documentation - Palliative Care Palliative Care/ Comfort Measures: Not Applicable - Core Measures Any of the following diagnoses?: none Exam - Constitutional Vitals: Temp Pulse Resp BP Pulse Ox 98.5 F 82 18 109/53 94 09/15/19 07:23 09/15/19 07:23 09/15/19 10:00 09/15/19 07:23 09/15/19 10:00 General appearance: Present: no acute distress, well-nourished - EENT Eyes: Present: PERRL, EOM intact - Neck Neck: Present: supple, normal ROM - Respiratory Respiratory effort: normal Respiratory: bilateral: diminished, negative: rales, rhonchi, wheezing - Cardiovascular Rhythm: regular Heart Sounds: Present: S1 & S2 - Extremities Extremities: no ischemia, No edema - Abdominal General gastrointestinal: Present: soft, non-tender, non-distended, normal bowel sounds - Integumentary Integumentary: Present: clear, warm - Musculoskeletal Musculoskeletal: generalized weakness - Psychiatric Psychiatric: other (Residual weakness) - Neurologic Neurologic: moves all extremities Plan Activity: advance as tolerated, fall precautions Diet: renal Additional Instructions: Follow hemodialysis/renal per schedule. Fall precautions Follow up with: PRIMARY CARE, [Primary Care Provider] - 3-5 Days MICHAEL FENG MD [Staff Physician] - 7 Days JOSE RAMON CHU MD [Staff Physician] - 7 Days
[2019-09-15 17:08] VITALS: BP 102/52
== END 2019-09-15 16:35 | DRG 871 ==
LOC: ED 12:16 → CC1 17:09 → 2B-ACE 09-12 20:58
PROVIDERS: ADMIT Internal Medicine; ATTEND Internal Medicine
PROC: 06HY33Z Insertion of Infusion Device into Lower Vein, Percutaneous Approach (ICD-10-PCS; 2019-09-07)
PROC: 5A1D70Z Performance of Urinary Filtration, Intermittent, Less than 6 Hours Per Day (ICD-10-PCS; 2019-09-09)
PROC: 5A1D70Z Performance of Urinary Filtration, Intermittent, Less than 6 Hours Per Day (ICD-10-PCS; 2019-09-11)
PROC: 30233N1 Transfusion of Nonautologous Red Blood Cells into Peripheral Vein, Percutaneous Approach (ICD-10-PCS; principal; 2019-09-12)
PROC: 5A1D70Z Performance of Urinary Filtration, Intermittent, Less than 6 Hours Per Day (ICD-10-PCS; 2019-09-13)
DX: A41.9 Sepsis, unspecified organism (principal); N18.6 End stage renal disease; R65.21 Severe sepsis with septic shock; G93.41 Metabolic encephalopathy; I12.0 Hypertensive chronic kidney disease with stage 5 chronic kidney disease or end stage renal disease; N25.81 Secondary hyperparathyroidism of renal origin; N30.00 Acute cystitis without hematuria; L89.159 Pressure ulcer of sacral region, unspecified stage; G40.909 Epilepsy, unspecified, not intractable, without status epilepticus; D63.1 Anemia in chronic kidney disease; F41.9 Anxiety disorder, unspecified; F03.90 Unspecified dementia, unspecified severity, without behavioral disturbance, psychotic disturbance, mood disturbance, and anxiety; E87.6 Hypokalemia; F20.9 Schizophrenia, unspecified; Z99.2 Dependence on renal dialysis; Z90.710 Acquired absence of both cervix and uterus; Z79.899 Other long term (current) drug therapy; Z82.49 Family history of ischemic heart disease and other diseases of the circulatory system; Z88.0 Allergy status to penicillin; Z88.8 Allergy status to other drugs, medicaments and biological substances
CPT/HCPCS: 36415; 71045; 80048; 80053; 80074; 80164; 80202; 81001; 82140; 82805; 82962; 83036; 85007; 85025; 85730; 86850; 86900; 86901; 86920; 87040; 87086; 87116; 93005; 93010; 94760; G0378; J0692; J0885; J1170; J1644; J2501; J3370; J7030; J7040; J7050; P9016

== ENCOUNTER 2019-10-06 06:51 | Day surgery (SDC) | payer MEDICARE ==
[2019-10-06] MEDS ORDERED: BACTERIOSTATIC SODIUM CHLORIDE 0.9% 30 ML VIAL INFILTRATI ONE (07:02)
[2019-10-06] MEDS ORDERED: CLINDAMYCIN 600 MG/50 mL 600 MG/50 ML BAG IV NR (07:20)
[2019-10-06] MEDS ORDERED: SODIUM CHLORIDE 0.9% 1000 ML 1,000 ML IV SCH (07:30)
[2019-10-06] MEDS ORDERED: SODIUM CHLORIDE 0.9% 1000 ML 1,000 ML ONE (07:44)
--- NOTE | 2019-10-06 07:58 | Anesthesia Consultation ---
Anesthesia Consult and Med Hx Date of service: 10/06/19 - Airway Anesthetic Teeth Evaluation: Good ROM Head & Neck: Adequate Mental/Hyoid Distance: Adequate Mallampati Class: Class II Intubation Access Assessment: Good - Pulmonary Exam CTA: Yes - Cardiac Exam Cardiac Exam: RRR - Pre-Operative Health Status ASA Pre-Surgery Classification: ASA3 Proposed Anesthetic Plan: General - Central Nervous System Hx Seizures: Yes (DAILY MEDS) Hx Psychiatric Problems: Yes - Endocrine Hx Renal Disease: Yes Hx End Stage Renal Disease: Yes - Hematic Hx Anemia: Yes - Other Systems Hx Cancer: Yes
--- NOTE | 2019-10-06 07:58 | Anesthesia Day of Surgery ---
Anesthesia Day of Surgery - Day of Surgery Patient Examined: Yes Patient H&P Reviewed: Yes Patient is NPO: Yes
[2019-10-06] MEDS ORDERED: HEPARIN 10,000 UNITS/10 ML VIAL ONE (08:03)
[2019-10-06] MEDS ORDERED: PROTAMINE SULFATE 50 MG/5 ML INJ ONE ×2 (08:04→10:40)
[2019-10-06] MEDS ORDERED: GELATIN SPONGE SIZE 100 TP ONE (08:04)
[2019-10-06] MEDS ORDERED: PAPAVERINE 60 MG/2 ML INJ SDV ONE (08:04)
[2019-10-06] MEDS ORDERED: THROMBIN (RECOMBINANT) 5,000 UNIT VIAL TP ONE ×2 (08:04→09:45)
[2019-10-06] MEDS ORDERED: SODIUM CHLORIDE 0.9% 250ML 250 ML ONE (08:05)
[2019-10-06] MEDS ORDERED: fentaNYL 100 MCG/2 ML INJ ONE (08:30)
[2019-10-06] MEDS ORDERED: LIDOCAINE MPF (2%) 20 MG/1 ML VIAL 5 ML ONE (08:30)
[2019-10-06] MEDS ORDERED: PROPOFOL 200 MG/20 ML VIAL IV ONE (08:31)
[2019-10-06 08:46] LABS: Calcium 10.4 mg/dL (8.4-10.2)
[2019-10-06] MEDS ORDERED: PHENYLEPHRINE/NS 1,000 MCG/10 ML SYRINGE (OR USE) IV ONE ×2 (09:23→10:42)
[2019-10-06] MEDS ORDERED: SODIUM CHLORIDE 0.9% 250 ML IVPB IV ONE (09:45)
[2019-10-06] MEDS ORDERED: HEPARIN 10,000 UNITS/10 ML VIAL IV ONE (09:45)
[2019-10-06] MEDS ORDERED: GELATIN SPONGE 12 X 7 TP ONE (09:45)
[2019-10-06] MEDS ORDERED: ONDANSETRON 4 MG/2 ML INJ ONE (10:42)
[2019-10-06] MEDS ORDERED: oxyCODONE /ACETAMINOPHEN 5-325MG TAB PO PRN (10:58)
--- NOTE | 2019-10-06 10:58 | Post Operative Note ---
Pre-op diagnosis: ESRD Post-op diagnosis: same Procedure: Left Arm AV Graft Insertion Anesthesia: GETA Surgeon: MELINDA VILLANUEVA Estimated blood loss: other (25ml) Pathology: none Condition: stable Disposition: PACU
--- NOTE | 2019-10-06 11:01 | Short Stay Summary ---
Short Stay Documentation Date of service: 10/06/19 - History H&P: obtained from office Past Medical History: ESRD - Allergies and Medications Current Medications: Allergies Penicillins Allergy (Verified 10/02/19 11:28) Rash corn Adverse Reaction (Verified 10/02/19 11:28) Unknown Home Medications Medication Instructions Recorded Confirmed Last Taken Type clonazePAM [KlonoPIN] 0.5 mg PO QHS #14 tablet 05/22/19 10/06/19 10/05/19 21:00 Rx Divalproex ER [Depakote ER] 1,500 mg PO HS 05/29/19 10/06/19 10/05/19 21:00 History Divalproex ER [Depakote ER] 500 mg PO QAM 05/29/19 10/06/19 10/05/19 08:00 History Acetaminophen [Acetaminophen TAB] 650 mg PO Q4H PRN tablet 06/03/19 10/02/19 Unknown Rx Calcium Acetate [Phoslo] 667 mg PO TID 08/20/19 10/06/19 10/05/19 21:00 History LORazepam [Ativan] 1 mg PO BID 08/20/19 10/06/19 10/05/19 21:00 History Memantine Xr [Namenda Xr] 5 mg PO DAILY 08/20/19 10/06/19 10/05/19 08:00 History Midodrine [Proamatine] 10 mg PO TID 08/20/19 10/06/19 10/05/19 21:00 History QUEtiapine [SEROquel] 400 mg PO QHS 08/20/19 10/06/19 10/05/19 21:00 History Famotidine [Pepcid] 10 mg PO DAILY tablet 09/15/19 10/06/19 10/05/19 08:00 Rx Active Medications Clindamycin HCl (Cleocin 600 Mg/50 Ml) 600 mg in 50 mls @ 100 mls/hr IV PREOP NR; Protocol Stop: 10/06/19 13:00 Sodium Chloride (Nacl 0.9% 1000 Ml) 1,000 mls @ 42 mls/hr IV DIRECT CONNOR Last Admin: 10/06/19 07:50 Dose: 42 mls/hr Documented by: Oxycodone/Acetaminophen (Percocet 5/325) 2 tab PO Q4H PRN PRN Reason: Pain, Moderate (4-6) - Physical exam General appearance: no acute distress Lungs: Normal air movement Heart: Regular rate Extremities: no ischemia - Hospital course Hospital course: the patient was taken to the operating room and had a left arm av graft insertion performed. please refer to the operative note concerning details of the procedure. the patient tolerated the procedure well and was discharged back to her facility in stable condition. - Disposition Condition at discharge: Stable Disposition: DC/TX-03 SN[facility] - Discharge Diagnoses (1) ESRD (end stage renal disease) on dialysis Status: Acute Short Stay Discharge Plan Follow up with: PRIMARY CAREMD [Primary Care Provider] - 7 Days
[2019-10-06] MEDS ORDERED: HYDROmorphone 1 MG/1 ML INJ ONE (11:18)
[2019-10-06] MEDS: HYDROmorphone 1 MG/1 ML INJ IV PRN ×2 (11:20→11:35)
--- NOTE | 2019-10-06 11:24 | Operative Report ---
STAFF SURGEON: Dr. Edin Gamez. PREOPERATIVE DIAGNOSIS: End-stage renal disease. POSTOPERATIVE DIAGNOSIS: End-stage renal disease. PROCEDURE PERFORMED: Left arm AV graft insertion. COMPLICATIONS: None. ESTIMATED BLOOD LOSS: 25 mL. ANESTHESIA: General. INDICATIONS FOR PROCEDURE: This is a 64-year-old female with end-stage renal disease, on hemodialysis via right IJ Perm-A-Cath in need of permanent dialysis access. The patient and the patient's family were explained the risks, benefits and alternatives of procedure, expressed understanding and wished to proceed. DESCRIPTION OF PROCEDURE: After appropriate consent was obtained, the patient was brought back to the operating room and placed on the operating table in supine position with left arm extended. The patient was given appropriate medication for general anesthesia, had LMA placed without difficulty. The left arm was prepped and draped in usual sterile fashion with ChloraPrep. Appropriate preoperative antibiotics were administered. Appropriate timeout was performed indicating correct patient, procedure, and site of the procedure. I then began the operation by making a longitudinal incision near the antecubital fossa. This was carried through the subcutaneous tissue with a combination of blunt dissection and electrocautery. Dissection was continued through the bicipital aponeurosis which allowed to expose the brachial artery, which was found to be suitable for arterial inflow. The brachial artery was then mobilized for appropriate distance both proximally and distally, then proceeded to make a transverse incision near the axilla. This was carried through the subcutaneous tissue with a combination of blunt dissection and electrocautery. Dissection was continued through the fascia overlying the axillary neurovascular bundle. Axillary vein was identified and found to be suitable for venous outflow. This was then mobilized for appropriate distance both proximally and distally. We then proceeded to create a subcutaneous tunnel bringing through a 4-7 mm Propaten graft. The patient was given 5000 units of unfractionated heparin. After appropriate timeout elapsed, the graft was appropriately spatulated. Vascular clamps were placed on the brachial artery, both proximally and distally. Longitudinal arteriotomy was made with an 11 blade and extended with Mcclure scissors. We then proceeded to perform an end-to-side anastomosis with a running 6-0 Prolene suture. Once complete, flow was established through the graft, we had a nice pulsatile flow and then proceeded to cut the graft to appropriate length and spatulated. Vascular clamps were placed on the axillary vein, both proximally and distally. Longitudinal venotomy was made with the 11 blade and extended with Mcclure scissors and then proceeded to perform an end-to-side anastomosis with a running 5-0 Prolene suture. Once complete flow was reestablished through the graft we had a nice palpable thrill, which was confirmed by Doppler. We then proceeded to look to obtain hemostasis along the suture line with hemostasis obtained with hemostatic agents. Once we were satisfied with hemostasis, we then proceeded to close the wounds with deep subcutaneous layer with interrupted 3-0 PDS. Skin was approximated with elsa. Appropriate dressing was placed. The patient tolerated the procedure well, emerged from the general anesthesia, the LMA removed and was sent to recovery in stable condition. All the sponges, instrument and needle counts were correct at completion of the operation. JOB# [id number] BERTA/[id number]
[2019-10-06] MEDS ORDERED: HEPARIN 10,000 UNIT/1 ML VIAL ONE (11:59)
[2019-10-06] MEDS ORDERED: HEPARIN 10,000 UNIT/1 ML VIAL IV PRN (12:03)
[2019-10-06 12:12] VITALS: BP 105/52
== END 2019-10-06 12:39 ==
LOC: OR 06:51
PROVIDERS: ATTEND Surgery Vascular Surgery
DX: N18.6 End stage renal disease (principal); G93.41 Metabolic encephalopathy; K21.9 Gastro-esophageal reflux disease without esophagitis; M19.90 Unspecified osteoarthritis, unspecified site; F31.9 Bipolar disorder, unspecified; F41.9 Anxiety disorder, unspecified; Z83.3 Family history of diabetes mellitus; Z98.890 Other specified postprocedural states; Z88.0 Allergy status to penicillin; Z88.8 Allergy status to other drugs, medicaments and biological substances; Z79.899 Other long term (current) drug therapy; Z90.710 Acquired absence of both cervix and uterus; Z85.3 Personal history of malignant neoplasm of breast; Z99.2 Dependence on renal dialysis; Z86.2 Personal history of diseases of the blood and blood-forming organs and certain disorders involving the immune mechanism
CPT/HCPCS: 36415; 36830; 80048; A4649; C1768; J1170; J1644; J2370; J2405; J2704; J2720; J3010; J7030; J7050; J2440

== ENCOUNTER 2020-07-01 13:59 | Emergency (ER) | payer MEDICARE ==
[2020-07-01 15:57] LABS: Albumin 4.1 g/dL (3.9-5); Calcium 10.3 mg/dL (8.4-10.2)
[2020-07-01 16:01] LABS: Basophils % (Auto) 0.5 % (0.0-1.8); Eosinophils # (Auto) 0.3 K/mm3 (0.0-0.4); Eosinophils % (Auto) 7.3 % (0.0-4.3); Hematocrit 29.5 % (30.3-42.9); Hemoglobin 9.5 gm/dl (10.1-14.3); Lymphocytes # (Auto) 1.1 K/mm3 (1.2-5.4); Mean Corpuscular HGB Conc 32 % (30-34); Mean Corpuscular Volume 77 fl (79-97); Monocytes # (Auto) 0.2 K/mm3 (0.0-0.8); Monocytes % (Auto) 4.7 % (0.0-7.3); Platelet Count 337 K/mm3 (140-440); Red Blood Count 3.81 M/mm3 (3.65-5.03); Red Cell Distribution Width 17.3 % (13.2-15.2)
--- NOTE | 2020-07-02 10:54 | Emergency Department Report ---
ED General Adult HPI - General Chief complaint: Medical Clearance Stated complaint: KIDNEY ABD PAINS Time Seen by Provider: 07/02/20 10:44 Source: patient, EMS Mode of arrival: Stretcher Limitations: No Limitations - History of Present Illness Initial comments: Patient is a 59-year-old Afro-Chinese female who is presenting with behavioral issue from her prison. Patient was [place] and got an argument with the nurse. She was cursing he was sent here for evaluation. Patient is now is calm and cooperative. States she has no current issues. Patient states that she was raised to stand up for herself. Patient did miss dialysis yesterday and the session before that. States she missed secondary to some arthritis pain. She is due for dialysis tomorrow. She has no shortness of breath nausea vomiting or diarrhea. - Related Data Home Medications Medication Instructions Recorded Confirmed Last Taken Divalproex ER [Depakote ER] 1,500 mg PO HS 05/29/19 03/29/20 03/28/20 20:00 Divalproex ER [Depakote ER] 500 mg PO QAM 05/29/19 03/29/20 03/29/20 09:40 LORazepam [Ativan] 1 mg PO BID 08/20/19 03/29/20 03/28/20 17:00 Memantine Xr [Namenda Xr] 5 mg PO DAILY 08/20/19 03/29/20 03/28/20 09:00 Midodrine [Proamatine] 10 mg PO TID 08/20/19 03/29/20 03/28/20 17:00 QUEtiapine [SEROquel] 400 mg PO QHS 08/20/19 03/29/20 03/28/20 20:00 Previous Rx's Medication Instructions Recorded Last Taken Type Acetaminophen [Acetaminophen TAB] 650 mg PO Q4H PRN tablet 06/03/19 Unknown Rx Pantoprazole [Protonix TAB] 40 mg PO BID tablet 10/12/19 03/28/20 17:00 Rx HYDROcodone/APAP 5-325 [[place] 1 each PO Q6H PRN #24 tablet 03/29/20 Unknown Rx 5-325 mg TAB] Allergies Allergy/AdvReac Type Severity Reaction Status Date / Time Penicillins Allergy Rash Verified 03/15/20 07:07 corn AdvReac Unknown Verified 03/15/20 07:07 ED Review of Systems ROS: Stated complaint: KIDNEY ABD PAINS Other details as noted in HPI Comment: All other systems reviewed and negative ED Past Medical Hx - Past Medical History Hx Hypertension: Yes Hx GERD: Yes Hx Renal Disease: Yes (ESRD) Hx Arthritis: Yes Hx Seizures: Yes Hx Psychiatric Treatment: Yes (bipolar,schizophrenia,severe anxiety) Hx Dementia: Yes Additional medical history: HD - Surgical History Additional Surgical History: hysterectomy, right chest wall permacath - Social History Smoking Status: Unknown if ever smoked - Medications Home Medications: Home Medications Medication Instructions Recorded Confirmed Last Taken Type Divalproex ER [Depakote ER] 1,500 mg PO HS 05/29/19 03/29/20 03/28/20 20:00 History Divalproex ER [Depakote ER] 500 mg PO QAM 05/29/19 03/29/20 03/29/20 09:40 History Acetaminophen [Acetaminophen TAB] 650 mg PO Q4H PRN tablet 06/03/19 03/15/20 Unknown Rx LORazepam [Ativan] 1 mg PO BID 08/20/19 03/29/20 03/28/20 17:00 History Memantine Xr [Namenda Xr] 5 mg PO DAILY 08/20/19 03/29/20 03/28/20 09:00 History Midodrine [Proamatine] 10 mg PO TID 08/20/19 03/29/20 03/28/20 17:00 History QUEtiapine [SEROquel] 400 mg PO QHS 08/20/19 03/29/20 03/28/20 20:00 History Pantoprazole [Protonix TAB] 40 mg PO BID tablet 10/12/19 03/29/20 03/28/20 17:00 Rx HYDROcodone/APAP 5-325 [[place] 1 each PO Q6H PRN #24 tablet 03/29/20 Unknown Rx 5-325 mg TAB] ED Physical Exam - General Limitations: No Limitations General appearance: alert, in no apparent distress - Head Head exam: Present: atraumatic, normocephalic - Eye Eye exam: Present: normal appearance - ENT ENT exam: Present: mucous membranes moist - Neck Neck exam: Present: normal inspection - Respiratory Respiratory exam: Present: normal lung sounds bilaterally. Absent: respiratory distress, wheezes, rales, rhonchi - Cardiovascular Cardiovascular Exam: Present: regular rate, normal rhythm. Absent: systolic murmur, diastolic murmur, rubs, gallop - GI/Abdominal GI/Abdominal exam: Present: soft, normal bowel sounds. Absent: distended, tenderness, guarding, rebound - Extremities Exam Extremities exam: Present: normal inspection - Back Exam Back exam: Present: normal inspection - Neurological Exam Neurological exam: Present: alert, oriented X3 - Psychiatric Psychiatric exam: Present: normal affect, normal mood - Skin Skin exam: Present: warm, dry, intact, normal color. Absent: rash ED Course Vital Signs 07/01/20 07/02/20 07/02/20 14:57 07:30 09:19 Temperature 97.9 F 98.5 F 97.7 F Pulse Rate 91 H 96 H 78 Respiratory 20 16 18 Rate Blood Pressure 107/60 Blood Pressure 142/84 137/77 [Right] O2 Sat by Pulse 96 96 95 Oximetry 07/02/20 09:20 Temperature Pulse Rate Respiratory 18 Rate Blood Pressure Blood Pressure [Right] O2 Sat by Pulse 95 Oximetry ED Medical Decision Making - Lab Data Result diagrams: 07/01/20 15:23 07/01/20 15:23 Lab Results 07/01/20 07/01/20 Range/Units 15:23 15:23 WBC 4.4 L (4.5-11.0) K/mm3 RBC 3.81 (3.65-5.03) M/mm3 Hgb 9.5 L (10.1-14.3) gm/dl Hct 29.5 L (30.3-42.9) % MCV 77 L (79-97) fl MCH 25 L (28-32) pg MCHC 32 (30-34) % RDW 17.3 H (13.2-15.2) % Plt Count 337 (140-440) K/mm3 Lymph % (Auto) 24.0 (13.4-35.0) % [place] % (Auto) 4.7 (0.0-7.3) % Eos % (Auto) 7.3 H (0.0-4.3) % Baso % (Auto) 0.5 (0.0-1.8) % Lymph # (Auto) 1.1 L (1.2-5.4) K/mm3 [place] # (Auto) 0.2 (0.0-0.8) K/mm3 Eos # (Auto) 0.3 (0.0-0.4) K/mm3 Baso # (Auto) 0.0 (0.0-0.1) K/mm3 Seg Neutrophils % 63.5 (40.0-70.0) % Seg Neutrophils # 2.8 (1.8-7.7) K/mm3 Sodium 141 (137-145) mmol/L Potassium 4.6 (3.6-5.0) mmol/L Chloride 102.8 (98-107) mmol/L Carbon Dioxide 22 (22-30) mmol/L Anion Gap 21 mmol/L BUN 83 H (7-17) mg/dL Creatinine 8.3 H (0.6-1.2) mg/dL Estimated GFR 6 ml/min BUN/Creatinine Ratio 10 % Glucose 147 H (65-100) mg/dL Calcium 10.3 H (8.4-10.2) mg/dL Total Bilirubin 0.30 (0.1-1.2) mg/dL AST 27 (5-40) units/L ALT 30 (7-56) units/L Alkaline Phosphatase 131 H (35-129) units/L Total Protein 7.6 (6.3-8.2) g/dL Albumin 4.1 (3.9-5) g/dL Albumin/Globulin Ratio 1.2 % - Medical Decision Making Patient's potassium is normal and she does not appear to be fluid overloaded. She is stable from a nephrology standpoint. She can do her normal dialysis tomorrow. As far as behavioral issues patient is appears fine at this time. Patient be discharged back to her prison. Critical care attestation.: If time is entered above; I have spent that time in minutes in the direct care of this critically ill patient, excluding procedure time. ED Disposition Clinical Impression: ESRD (end stage renal disease) on dialysis, Behavior concern in adult Disposition: DC-01 TO HOME OR SELFCARE Is pt being admited?: No Does the pt Need Aspirin: No Condition: Stable Referrals: PRIMARY CARE, [Primary Care Provider] - 3-5 Days Time of Disposition: 10:53
[2020-07-02 13:25] VITALS: BP 133/63
== END 2020-07-02 15:37 | disposition home or self-care (01) ==
LOC: ED 13:59
DX: I12.0 Hypertensive chronic kidney disease with stage 5 chronic kidney disease or end stage renal disease (principal); N18.6 End stage renal disease; F69 Unspecified disorder of adult personality and behavior; K21.9 Gastro-esophageal reflux disease without esophagitis; M19.91 Primary osteoarthritis, unspecified site; R56.9 Unspecified convulsions; F31.9 Bipolar disorder, unspecified; F03.90 Unspecified dementia, unspecified severity, without behavioral disturbance, psychotic disturbance, mood disturbance, and anxiety; Z90.710 Acquired absence of both cervix and uterus; Z98.890 Other specified postprocedural states; Z79.899 Other long term (current) drug therapy; Z88.0 Allergy status to penicillin; Z91.018 Allergy to other foods
CPT/HCPCS: 36415; 80053; 85025

== ENCOUNTER 2020-09-02 10:42 | Inpatient (IN) | payer MEDICARE ==
[2020-09-02] MEDS ORDERED: ACETAMINOPHEN 650 MG RECT SUPP PR STA (11:55)
[2020-09-02] MEDS ORDERED: SODIUM CHLORIDE 0.9% 500 ML 500 ML IV ONE ×2 (11:55→13:41)
--- NOTE | 2020-09-02 12:02 | Emergency Department Report ---
ED Altered Mental Status HPI - General Chief Complaint: Altered Mental Status Stated Complaint: AMS/GONZALEZ Time Seen by Provider: 09/02/20 11:52 Source: EMS Mode of arrival: Stretcher Limitations: Altered Mental Status - History of Present Illness Initial Comments: Patient is a 65-year-old female brought from [facility] for evaluation of altered mental status for unknown duration. Patient found to be febrile in route to hospital. Patient presents meeting sepsis criteria, consequently required my immediate attention. Patient history limited by patient condition. - Related Data Home Medications Medication Instructions Recorded Confirmed Last Taken Divalproex ER [Depakote ER] 1,500 mg PO HS 05/29/19 03/29/20 03/28/20 20:00 Divalproex ER [Depakote ER] 500 mg PO QAM 05/29/19 03/29/20 03/29/20 09:40 LORazepam [Ativan] 1 mg PO BID 08/20/19 03/29/20 03/28/20 17:00 Memantine Xr [Namenda Xr] 5 mg PO DAILY 08/20/19 03/29/20 03/28/20 09:00 Midodrine [Proamatine] 10 mg PO TID 08/20/19 03/29/20 03/28/20 17:00 QUEtiapine [SEROquel] 400 mg PO QHS 08/20/19 03/29/20 03/28/20 20:00 Previous Rx's Medication Instructions Recorded Last Taken Type Acetaminophen [Acetaminophen TAB] 650 mg PO Q4H PRN tablet 06/03/19 Unknown Rx Pantoprazole [Protonix TAB] 40 mg PO BID tablet 10/12/19 03/28/20 17:00 Rx HYDROcodone/APAP 5-325 [[place] 1 each PO Q6H PRN #24 tablet 03/29/20 Unknown Rx 5-325 mg TAB] Allergies Allergy/AdvReac Type Severity Reaction Status Date / Time Penicillins Allergy Rash Verified 03/15/20 07:07 corn AdvReac Unknown Verified 03/15/20 07:07 ED Review of Systems ROS: Stated complaint: AMS/GONZALEZ Other details as noted in HPI Comment: All other systems reviewed and negative ED Past Medical Hx - Past Medical History Hx Hypertension: Yes Hx GERD: Yes Hx Renal Disease: Yes (ESRD) Hx Arthritis: Yes Hx Seizures: Yes Hx Psychiatric Treatment: Yes (bipolar,schizophrenia,severe anxiety) Hx Dementia: Yes Additional medical history: HD - Surgical History Additional Surgical History: hysterectomy, right chest wall permacath - Social History Smoking Status: Unknown if ever smoked - Medications Home Medications: Home Medications Medication Instructions Recorded Confirmed Last Taken Type Divalproex ER [Depakote ER] 1,500 mg PO HS 05/29/19 03/29/20 03/28/20 20:00 History Divalproex ER [Depakote ER] 500 mg PO QAM 05/29/19 03/29/20 03/29/20 09:40 History Acetaminophen [Acetaminophen TAB] 650 mg PO Q4H PRN tablet 06/03/19 03/15/20 Unknown Rx LORazepam [Ativan] 1 mg PO BID 08/20/19 03/29/20 03/28/20 17:00 History Memantine Xr [Namenda Xr] 5 mg PO DAILY 08/20/19 03/29/20 03/28/20 09:00 History Midodrine [Proamatine] 10 mg PO TID 08/20/19 03/29/20 03/28/20 17:00 History QUEtiapine [SEROquel] 400 mg PO QHS 08/20/19 03/29/20 03/28/20 20:00 History Pantoprazole [Protonix TAB] 40 mg PO BID tablet 10/12/19 03/29/20 03/28/20 17:00 Rx HYDROcodone/APAP 5-325 [[place] 1 each PO Q6H PRN #24 tablet 03/29/20 Unknown Rx 5-325 mg TAB] ED Physical Exam - General Limitations: Altered Mental Status General appearance: alert, other (In moderate distress) - Head Head exam: Present: atraumatic, normocephalic - Eye Eye exam: Present: normal appearance - ENT ENT exam: Present: mucous membranes moist - Neck Neck exam: Present: normal inspection - Respiratory Respiratory exam: Present: normal lung sounds bilaterally. Absent: respiratory distress - Cardiovascular Cardiovascular Exam: Present: normal rhythm, tachycardia. Absent: systolic murmur, diastolic murmur, rubs, gallop - GI/Abdominal GI/Abdominal exam: Present: soft, normal bowel sounds - Extremities Exam Extremities exam: Present: other (Contractures of lower extremities) - Back Exam Back exam: Present: normal inspection - Neurological Exam Neurological exam: Present: altered, other (Somnolent) - Psychiatric Psychiatric exam: Present: other (Somnolent) - Skin Skin exam: Present: warm, dry, intact, normal color. Absent: rash ED Course Vital Signs 09/02/20 09/02/20 09/02/20 11:41 11:45 11:49 Temperature Pulse Rate 136 H 137 H Respiratory 24 22 Rate Blood Pressure 119/57 121/58 Blood Pressure [Right] O2 Sat by Pulse 99 100 99 Oximetry 09/02/20 09/02/20 09/02/20 12:00 12:04 12:24 Temperature 102.8 F H Pulse Rate 134 H 135 H Respiratory 29 H 24 22 Rate Blood Pressure 119/54 Blood Pressure 130/59 [Right] O2 Sat by Pulse 99 99 100 Oximetry - Reevaluation(s) Reevaluation #1: 09/02/20 14:05 Patient noted to be hypoxic on room air consistently below 90%, given O2 via nasal cannula. Patient treated with IV normal saline 1 L x 1, Tylenol per rectum. Patient treated with aztreonam for possible pneumonia on CXR. Following IV NS and Tylenol, patient more alert, remains mildly tachycardic, however, now able to give full history. - Lab Data Result diagrams: 09/02/20 12:42 09/02/20 12:42 Lab Results 09/02/20 09/02/20 09/02/20 Range/Units 12:25 12:42 12:42 RBC 3.61 L (3.65-5.03) M/mm3 Hgb 9.1 L (10.1-14.3) gm/dl Hct 29.4 L (30.3-42.9) % MCV 81 (79-97) fl MCH 25 L (28-32) pg MCHC 31 (30-34) % RDW 18.2 H (13.2-15.2) % Plt Count 158 (140-440) K/mm3 Lymph % (Auto) 13.9 (13.4-35.0) % [place] % (Auto) 9.1 H (0.0-7.3) % Eos % (Auto) 0.2 (0.0-4.3) % Baso % (Auto) 1.8 (0.0-1.8) % Lymph # (Auto) 0.6 L (1.2-5.4) K/mm3 [place] # (Auto) 0.4 (0.0-0.8) K/mm3 Eos # (Auto) 0.0 (0.0-0.4) K/mm3 Baso # (Auto) 0.1 (0.0-0.1) K/mm3 Add Manual Diff Complete Seg Neutrophils % 75.0 H (40.0-70.0) % Seg Neutrophils # 3.2 (1.8-7.7) K/mm3 PT 14.2 (12.2-14.9) Sec. INR 1.12 (0.87-1.13) VBG pH (7.320-7.420) Sodium (137-145) mmol/L Potassium (3.6-5.0) mmol/L Chloride (98-107) mmol/L Carbon Dioxide (22-30) mmol/L Anion Gap mmol/L BUN (7-17) mg/dL Creatinine (0.6-1.2) mg/dL Estimated GFR ml/min BUN/Creatinine Ratio % Glucose (65-100) mg/dL Lactic Acid (0.7-2.0) mmol/L Calcium (8.4-10.2) mg/dL Total Bilirubin (0.1-1.2) mg/dL AST (5-40) units/L ALT (7-56) units/L Alkaline Phosphatase (35-129) units/L Total Protein (6.3-8.2) g/dL Albumin (3.9-5) g/dL Albumin/Globulin Ratio % Urine Color Yellow (Yellow) Urine Turbidity Clear (Clear) Urine pH 7.0 (5.0-7.0) Ur Specific [place] 1.012 (1.003-1.030) Urine Protein 100 mg/dl (Negative) mg/dL Urine Glucose (UA) Neg (Negative) mg/dL Urine Ketones Tr (Negative) mg/dL Urine Blood Neg (Negative) Urine Nitrite Neg (Negative) Urine Bilirubin Neg (Negative) Urine Urobilinogen 2.0 (<2.0) mg/dL Ur Leukocyte Esterase Tr (Negative) Urine WBC (Auto) 7.0 H (0.0-6.0) /HPF Urine RBC (Auto) 1.0 (0.0-6.0) /HPF U Epithel Cells (Auto) 1.0 (0-13.0) /HPF Urine Mucus Few /HPF 09/02/20 09/02/20 09/02/20 Range/Units 12:42 12:42 12:42 RBC (3.65-5.03) M/mm3 Hgb (10.1-14.3) gm/dl Hct (30.3-42.9) % MCV (79-97) fl MCH (28-32) pg MCHC (30-34) % RDW (13.2-15.2) % Plt Count (140-440) K/mm3 Lymph % (Auto) (13.4-35.0) % [place] % (Auto) (0.0-7.3) % Eos % (Auto) (0.0-4.3) % Baso % (Auto) (0.0-1.8) % Lymph # (Auto) (1.2-5.4) K/mm3 [place] # (Auto) (0.0-0.8) K/mm3 Eos # (Auto) (0.0-0.4) K/mm3 Baso # (Auto) (0.0-0.1) K/mm3 Add Manual Diff Seg Neutrophils % (40.0-70.0) % Seg Neutrophils # (1.8-7.7) K/mm3 PT (12.2-14.9) Sec. INR (0.87-1.13) VBG pH 7.337 (7.320-7.420) Sodium 136 L (137-145) mmol/L Potassium 4.9 (3.6-5.0) mmol/L Chloride 101.6 (98-107) mmol/L Carbon Dioxide 17 L (22-30) mmol/L Anion Gap 22 mmol/L BUN 60 H (7-17) mg/dL Creatinine 6.4 H (0.6-1.2) mg/dL Estimated GFR 8 ml/min BUN/Creatinine Ratio 9 % Glucose 101 H (65-100) mg/dL Lactic Acid 1.80 (0.7-2.0) mmol/L Calcium 9.7 (8.4-10.2) mg/dL Total Bilirubin 0.40 (0.1-1.2) mg/dL AST 227 H (5-40) units/L ALT 114 H (7-56) units/L Alkaline Phosphatase 300 H (35-129) units/L Total Protein 7.1 (6.3-8.2) g/dL Albumin 2.6 L (3.9-5) g/dL Albumin/Globulin Ratio 0.6 % Urine Color (Yellow) Urine Turbidity (Clear) Urine pH (5.0-7.0) Ur Specific [place] (1.003-1.030) Urine Protein (Negative) mg/dL Urine Glucose (UA) (Negative) mg/dL Urine Ketones (Negative) mg/dL Urine Blood (Negative) Urine Nitrite (Negative) Urine Bilirubin (Negative) Urine Urobilinogen (<2.0) mg/dL Ur Leukocyte Esterase (Negative) Urine WBC (Auto) (0.0-6.0) /HPF Urine RBC (Auto) (0.0-6.0) /HPF U Epithel Cells (Auto) (0-13.0) /HPF Urine Mucus /HPF Vital Signs 09/02/20 09/02/20 09/02/20 11:41 11:45 11:49 Temperature Pulse Rate 136 H 137 H Respiratory 24 22 Rate Blood Pressure 119/57 121/58 Blood Pressure [Right] O2 Sat by Pulse 99 100 99 Oximetry 09/02/20 09/02/20 09/02/20 12:00 12:04 12:24 Temperature 102.8 F H Pulse Rate 134 H 135 H Respiratory 29 H 24 22 Rate Blood Pressure 119/54 Blood Pressure 130/59 [Right] O2 Sat by Pulse 99 99 100 Oximetry - EKG Data -: EKG Interpreted by Me (Sinus tachycardia 133, no ST-T changes, normal QRS as read by me) - Radiology Data Radiology results: report reviewed LLL atelectasis per radiology Critical Care Time: Yes Critical care time in (mins) excluding proc time.: 35 Critical care attestation.: If time is entered above; I have spent that time in minutes in the direct care of this critically ill patient, excluding procedure time. ED Disposition Clinical Impression: Sepsis Disposition: DC- OP ADMIT IP TO THIS HOSP Is pt being admited?: Yes Condition: Stable
[2020-09-02] MEDS ORDERED: AZTREONAM/NS 1 GM/50 ML 1 GM/50 ML VIAL IV ONE (12:23)
[2020-09-02 12:48] LABS: Bilirubin,Urine NEG (Negative); Blood,Urine NEG (Negative); Color,Urine Yellow (Yellow); Mucus,Urine FEW /HPF
--- NOTE | 2020-09-02 13:15 | XRay Report ---
CHEST 1 VIEW INDICATION: possible Sepsis. COMPARISON: 01/27/2020 FINDINGS: Support devices: Right IJ permacath remains in good position. Heart: Within normal limits. Lungs/Pleura: No acute air space or interstitial disease. Minor left basilar atelectasis is noted. No evidence for pneumonia, pleural effusion or pneumothorax. Additional findings: None. IMPRESSION: No acute findings. Partial atelectasis in the left lower lobe. Signer Name: Magen Silverio Jr, MD Signed: 09/02/2020 1:11 PM Workstation Name: [id number]
[2020-09-02 13:19] LABS: Albumin 2.6 g/dL (3.9-5); Calcium 9.7 mg/dL (8.4-10.2)
[2020-09-02 13:26] LABS: INR 1.12 (0.87-1.13)
[2020-09-02 13:35] LABS: Hematocrit 29.4 % (30.3-42.9); Hemoglobin 9.1 gm/dl (10.1-14.3); Mean Corpuscular HGB Conc 31 % (30-34); Mean Corpuscular Volume 81 fl (79-97); Platelet Count 158 K/mm3 (140-440); Red Blood Count 3.61 M/mm3 (3.65-5.03); Red Cell Distribution Width 18.2 % (13.2-15.2)
[2020-09-02 13:36] LABS: Basophils % (Auto) 1.8 % (0.0-1.8); Eosinophils % (Auto) 0.2 % (0.0-4.3); Lymphocytes % (Auto) 13.9 % (13.4-35.0); Monocytes % (Auto) 9.1 % (0.0-7.3)
[2020-09-02 13:37] LABS: Basophils # (Auto) 0.1 K/mm3 (0.0-0.1); Lymphocytes # (Auto) 0.6 K/mm3 (1.2-5.4); Monocytes # (Auto) 0.4 K/mm3 (0.0-0.8)
[2020-09-02] MEDS ORDERED: dexAMETHasone 20 MG/5 ML VIAL IV ONE (13:58)
[2020-09-02 16:56] LABS: C-Reactive Protein 32.8 mg/dL (0.00-1.30)
[2020-09-02] MEDS ORDERED: ACETAMINOPHEN 325 MG TAB PO PRN ×2 (19:55→19:59)
[2020-09-02] MEDS ORDERED: HYDROcodone/ACETAMINOPHEN 5-325 MG TAB PO PRN (19:55)
[2020-09-02] MEDS ORDERED: ONDANSETRON 4 MG/2 ML INJ IV PRN (19:59)
[2020-09-02] MEDS ORDERED: HYDROmorphone 1 MG/1 ML INJ IV PRN (19:59)
[2020-09-02] MEDS ORDERED: MEMANTINE 7 MG PO SCH (20:00)
[2020-09-02] MEDS ORDERED: HEPARIN 10,000 UNITS/10 ML VIAL IV ONE (20:23)
[2020-09-02] MEDS ORDERED: HEPARIN 10,000 UNITS/10 ML VIAL IV PRN (20:23)
--- NOTE | 2020-09-02 20:30 | History and Physical Report ---
<HOLLY BARROW - Last Filed: 09/02/20 20:32> History of Present Illness Date of examination: 09/02/20 Date of admission: 09/02/20 14:03 Chief complaint: AMS, fever, GONZALEZ History of present illness: 65-year-old female who is a resident of [facility] with history of end-stage renal disease on dialysis, hypertension, bipolar, anxiety, schizophrenia, and GERD who presents to [facility] ED via EMS with complaints of altered mental status, and difficulty breathing. Patient is unable to provide history. History is provided by medical report and review of records. Per shelter staff patient's mentation was altered and displayed difficulty breathing and so she was sent to the ED for further evaluation and treatment. While in the ED patient was noted to be febrile with T-max 102.8, and hypoxic on room air. At the time of my examination patient is resting comfortably in bed. She is unable to answer questions with occasional incoherent mumbling of words. Past History Past Medical History: diabetes, ESRD, GERD, hypertension, other (Bipolar, schizophrenia, dysphagia, cognitive communication deficit, anxiety, chronic anemia, seizures, generalized weakness ) Past Surgical History: hysterectomy, Other (Right chest permacath, SHAYY AV fistula ) Social history: other (shelter resident ([facility])) Family history: no significant family history Medications and Allergies Allergies Allergy/AdvReac Type Severity Reaction Status Date / Time Penicillins Allergy Rash Verified 03/15/20 07:07 corn AdvReac Unknown Verified 03/15/20 07:07 Home Medications Medication Instructions Recorded Confirmed Last Taken Type Acetaminophen [Acetaminophen TAB] 650 mg PO Q4H PRN tablet 06/03/19 09/02/20 09/02/20 Rx LORazepam [Ativan] 1 mg PO BID 08/20/19 09/02/20 03/28/20 17:00 History Memantine Xr [Namenda Xr] 5 mg PO DAILY 08/20/19 09/02/20 03/28/20 09:00 History Midodrine [Proamatine] 10 mg PO TID 08/20/19 09/02/20 03/28/20 17:00 History QUEtiapine [SEROquel] 400 mg PO BID 08/20/19 09/02/20 03/28/20 20:00 History Pantoprazole [Protonix TAB] 40 mg PO BID tablet 10/12/19 09/02/20 03/28/20 17:00 Rx HYDROcodone/APAP 5-325 [[place] 1 each PO Q6H PRN #24 tablet 03/29/20 09/02/20 Unknown Rx 5-325 mg TAB] Divalproex Sprinkle 1,500 mg PO QHS 09/02/20 09/02/20 Unknown History Divalproex Sprinkle [DepaKOTE 250 mg PO ONCE 09/02/20 09/02/20 Unknown History SPRINKLE] Sevelamer Carbonate [Renvela] 0.8 gram PO TIDWM 09/02/20 09/02/20 Unknown History VALPROIC ACID Liq [DepaKENE Liq] 500 mg PO DAILY 09/02/20 09/02/20 Unknown History Active Meds: Active Medications Acetaminophen (Acetaminophen 325 Mg Tab) 650 mg PO Q4H PRN PRN Reason: Pain MILD(1-3)/Fever >100.5/DRAKE Hydrocodone Bitart/Acetaminophen (Hydrocodone/Acetaminophen 5-325 Mg Tab) 1 each PO Q6H PRN PRN Reason: Pain, Moderate (4-6) Divalproex Sodium (Divalproex Sprinkle 125 Mg Cap) 250 mg PO QDAY@1700 [facility] Famotidine (Famotidine 10 Mg Tab) 10 mg PO BID [facility] Heparin Protocol (Heparin No Bolus) 1 each IV ONCE ONE Stop: 09/02/20 20:24 Heparin Sodium (Porcine) (Heparin 10,000 Units/10 Ml Vial) 2,400 unit 40 unit/kg (2400 unit) IV Q6H PRN PRN Reason: Anti-Xa Assay < 0.1 units/ml Hydromorphone HCl (Hydromorphone 1 Mg/1 Ml Inj) 0.5 mg IV Q3H PRN PRN Reason: Pain , Severe (7-10) Heparin Sodium/Sodium Chloride (Heparin/ 0.45% Nacl-25,000 Unit/500 Ml) 25,000 unit in 500 mls @ 18.371 mls/hr IV TITR [facility]; Protocol Lorazepam (Lorazepam 1 Mg Tab) 1 mg PO BID [facility] Memantine (Memantine 5 Mg Tab) 5 mg PO QDAY [facility] Midodrine (Midodrine 5 Mg Tab) 10 mg PO TID@0800,1200,1600 [facility] Ondansetron HCl (Ondansetron 4 Mg/2 Ml Inj) 4 mg IV Q8H PRN PRN Reason: Nausea And Vomiting Pantoprazole Sodium (Pantoprazole 40 Mg Tab) 40 mg PO BID [facility] Quetiapine Fumarate (Quetiapine 200 Mg Tab) 400 mg PO BID [facility] Sevelamer Carbonate (Sevelamer Carbonate 800 Mg Tab) 800 mg PO TIDWM [facility] Sodium Chloride (Sodium Chloride 0.9% 10 Ml Flush Syringe) 10 ml IV BID [facility] Sodium Chloride (Sodium Chloride 0.9% 10 Ml Flush Syringe) 10 ml IV PRN PRN PRN Reason: LINE FLUSH Valproic Acid (Valproic Acid 250 Mg/5 Ml Oral Liqd) 500 mg PO DAILY [facility] Valproic Acid (Valproic Acid 250 Mg/5 Ml Oral Liqd) 1,500 mg PO QHS [facility] Review of Systems ROS unobtainable: due to mental status Exam - Physical Exam Narrative exam: Physical exam General appearance: Present: No acute distress, awake, unable to determine orientation d/t AMS - EENT Eyes: Present: PERRL, EOM intact ENT: hearing intact, missing teeth - Neck Neck: Present: supple, normal ROM - Respiratory Respiratory effort: Non-labored Respiratory: diminished bases - Cardiovascular Heart rate: 133 (bpm) Rhythm: Sinus tachycardia Heart Sounds: Present: S1 & S2. Absent: rub, click - Extremities Extremities: no ischemia, pulses intact, SHAYY AV fistula, right chest permacath - Peripheral Assessment Peripheral Pulses: within normal limits - Abdominal General gastrointestinal: soft, non-tender, normal bowel sounds - Integumentary Integumentary: Present: warm, dry - Musculoskeletal Musculoskeletal: Able to move all extremities -Neurological Neurological: CN II-XII intact - Psychiatric Psychiatric: calm, flat affect - Constitutional Vitals: Temp Pulse Resp BP Pulse Ox 98.8 F 102 H 20 103/63 93 09/02/20 14:20 09/02/20 18:39 09/02/20 18:39 09/02/20 18:39 09/02/20 18:39 HEART Score - HEART Score EKG: Normal Age: > 65 Results - Labs CBC & Chem 7: 09/02/20 12:42 09/02/20 15:12 Labs: Laboratory Last Values RBC 3.61 M/mm3 (3.65-5.03) L 09/02/20 12:42 Hgb 9.1 gm/dl (10.1-14.3) L 09/02/20 12:42 Hct 29.4 % (30.3-42.9) L 09/02/20 12:42 MCV 81 fl (79-97) 09/02/20 12:42 MCH 25 pg (28-32) L 09/02/20 12:42 MCHC 31 % (30-34) 09/02/20 12:42 RDW 18.2 % (13.2-15.2) H 09/02/20 12:42 Plt Count 158 K/mm3 (140-440) 09/02/20 12:42 Lymph % (Auto) 13.9 % (13.4-35.0) 09/02/20 12:42 Liberty % (Auto) 9.1 % (0.0-7.3) H 09/02/20 12:42 Eos % (Auto) 0.2 % (0.0-4.3) 09/02/20 12:42 Baso % (Auto) 1.8 % (0.0-1.8) 09/02/20 12:42 Lymph # (Auto) 0.6 K/mm3 (1.2-5.4) L 09/02/20 12:42 Liberty # (Auto) 0.4 K/mm3 (0.0-0.8) 09/02/20 12:42 Eos # (Auto) 0.0 K/mm3 (0.0-0.4) 09/02/20 12:42 Baso # (Auto) 0.1 K/mm3 (0.0-0.1) 09/02/20 12:42 Add Manual Diff Complete 09/02/20 12:42 Seg Neutrophils % 75.0 % (40.0-70.0) H 09/02/20 12:42 Seg Neutrophils # 3.2 K/mm3 (1.8-7.7) 09/02/20 12:42 PT 14.2 Sec. (12.2-14.9) 09/02/20 12:42 INR 1.12 (0.87-1.13) 09/02/20 12:42 D-Dimer 2836.58 ng/mlDDU (0-234) H 09/02/20 15:12 VBG pH 7.337 (7.320-7.420) 09/02/20 12:42 Sodium 136 mmol/L (137-145) L 09/02/20 12:42 Potassium 4.9 mmol/L (3.6-5.0) 09/02/20 12:42 Chloride 101.6 mmol/L (98-107) 09/02/20 12:42 Carbon Dioxide 17 mmol/L (22-30) L 09/02/20 12:42 Anion Gap 22 mmol/L 09/02/20 12:42 BUN 60 mg/dL (7-17) H 09/02/20 12:42 Creatinine 6.4 mg/dL (0.6-1.2) H 09/02/20 12:42 Estimated GFR 8 ml/min 09/02/20 12:42 BUN/Creatinine Ratio 9 % 09/02/20 12:42 Glucose 98 mg/dL (65-100) 09/02/20 15:12 Lactic Acid 0.60 mmol/L (0.7-2.0) L 09/02/20 15:12 Calcium 9.7 mg/dL (8.4-10.2) 09/02/20 12:42 Ferritin 3094.0 ng/mL (10.0-200.0) H 09/02/20 15:12 Total Bilirubin 0.40 mg/dL (0.1-1.2) 09/02/20 12:42 AST 227 units/L (5-40) H 09/02/20 12:42 ALT 114 units/L (7-56) H 09/02/20 12:42 Alkaline Phosphatase 300 units/L (35-129) H 09/02/20 12:42 Lactate Dehydrogenase 209 units/L (91-180) H 09/02/20 15:12 C-Reactive Protein 32.80 mg/dL (0.00-1.30) H 09/02/20 15:12 Total Protein 7.1 g/dL (6.3-8.2) 09/02/20 12:42 Albumin 2.6 g/dL (3.9-5) L 09/02/20 12:42 Albumin/Globulin Ratio 0.6 % 09/02/20 12:42 Urine Color Yellow (Yellow) 09/02/20 12:25 Urine Turbidity Clear (Clear) 09/02/20 12:25 Urine pH 7.0 (5.0-7.0) 09/02/20 12:25 Ur Specific Gregory 1.012 (1.003-1.030) 09/02/20 12:25 Urine Protein 100 mg/dl mg/dL (Negative) 09/02/20 12:25 Urine Glucose (UA) Neg mg/dL (Negative) 09/02/20 12:25 Urine Ketones Tr mg/dL (Negative) 09/02/20 12:25 Urine Blood Neg (Negative) 09/02/20 12:25 Urine Nitrite Neg (Negative) 09/02/20 12:25 Urine Bilirubin Neg (Negative) 09/02/20 12:25 Urine Urobilinogen 2.0 mg/dL (<2.0) 09/02/20 12:25 Ur Leukocyte Esterase Tr (Negative) 09/02/20 12:25 Urine WBC (Auto) 7.0 /HPF (0.0-6.0) H 09/02/20 12:25 Urine RBC (Auto) 1.0 /HPF (0.0-6.0) 09/02/20 12:25 U Epithel Cells (Auto) 1.0 /HPF (0-13.0) 09/02/20 12:25 Urine Mucus Few /HPF 09/02/20 12:25 Microbiology: Microbiology 09/02/20 12:42 Peripheral/Venous Blood Culture - Preliminary Culture in Progress 09/02/20 12:42 Peripheral/Venous Blood Culture - Preliminary Culture in Progress - Imaging and Cardiology EKG: image reviewed Chest x-ray: report reviewed, image reviewed, other ( LLL atelectasis per radi ology report) Cleary/IV: IV Catheter Type [Right INT / Saline Lock Subclavian] Assessment and Plan Assessment and plan: 65-year-old female who is a resident of [facility] shelter with history of end-stage renal disease on dialysis, hypertension, bipolar, anxiety, schizophrenia, and GERD who presents to [facility] ED via EMS with complaints of altered mental status, and difficulty breathing. Patient was found to be febrile and tachycardic. Currently patient has been isolated for rule out of Covid 19 virus infection. Suspected COVID-19 virus infection -Hypoxic on RA with O2 sat 86% -ABG pending -Swabbed for COVID -Isolate SIRS -CXR shows LLL atelectasis -Tachycardic with heart rate 133 bpm -T-max 102.8 -Received 1 dose of IV abx in ED -UA shows urine WBC 7, urine culture pending -Will continue to workup hold antibiotics for now -Follow up on labs Hypoxia -No baseline home oxygen requirements -O2 sat 86% on RA -ABG pending -Supplemental O2 prn -Monitor saturation, wean as tolerated Elevated D-dimer -@ 2836.58 -V/Q scan pending -May consider CT Chest will need to coordinate with nephrology for HD schedule -Start on heparin gtt -Heparin protocol initiated ESRD on HD -Last dialyzed ??unknown -Avoid nephrotoxin agents -Renal dose all meds -Nephrology consulted Chronic Anemia -d/t renal failure -Hemoglobin on admission 9.1 -Stable -No s/s of active bleeding -Continue to monitor hemoglobin -Transfuse as needed for hgb <7.0 Transaminitis -Monitor -No documented history of liver disease -If no improvement may need to check hepatitis panel Bipolar -Continue home meds -Psych consult pending Schizophrenia -Continue home meds Anxiety -Continue home meds DVT PPX -On heparing gtt -On Protonix Advance Directives: No VTE prophylaxis?: Chemical <MITCHELL SAMSON S - Last Filed: 09/03/20 15:09> History of Present Illness Date of admission: 09/03/20 07:59 Medications and Allergies Active Meds: Active Medications Acetaminophen (Acetaminophen 325 Mg Tab) 650 mg PO Q4H PRN PRN Reason: Pain MILD(1-3)/Fever >100.5/DRAKE Hydrocodone Bitart/Acetaminophen (Hydrocodone/Acetaminophen 5-325 Mg Tab) 1 each PO Q6H PRN PRN Reason: Pain, Moderate (4-6) Divalproex Sodium (Divalproex Sprinkle 125 Mg Cap) 250 mg PO QDAY@1700 [facility] Divalproex Sodium (Divalproex Sprinkle 125 Mg Cap) 1,500 mg PO QHS [facility] Last Admin: 09/02/20 23:30 Dose: 1,500 mg Documented by: Famotidine (Famotidine 10 Mg Tab) 10 mg PO BID [facility] Last Admin: 09/02/20 23:30 Dose: 10 mg Documented by: Heparin Sodium (Porcine) (Heparin 10,000 Units/10 Ml Vial) 2,400 unit 40 unit/kg (2400 unit) IV Q6H PRN PRN Reason: Anti-Xa Assay < 0.1 units/ml Hydromorphone HCl (Hydromorphone 1 Mg/1 Ml Inj) 0.5 mg IV Q3H PRN PRN Reason: Pain , Severe (7-10) Heparin Sodium/Sodium Chloride (Heparin/ 0.45% Nacl-25,000 Unit/500 Ml) 25,000 unit in 500 mls @ 18 mls/hr IV TITR [facility]; Protocol Last Titration: 09/03/20 06:01 Dose: 839 units/hr, 16.78 mls/hr Documented by: Sodium Chloride (Nacl 0.9%) 100 mls @ 999 mls/hr IV BIANCA PRN PRN Reason: Hypotension Vancomycin HCl 1,250 mg/ (Sodium Chloride) 275 mls @ 166.667 mls/hr IV ONCE ONE Stop: 09/03/20 16:38 Lorazepam (Lorazepam 1 Mg Tab) 1 mg PO BID [facility] Last Admin: 09/02/20 23:27 Dose: 1 mg Documented by: Memantine (Memantine 5 Mg Tab) 5 mg PO QDAY [facility] Midodrine (Midodrine 5 Mg Tab) 10 mg PO TID@0800,1200,1600 [facility] Last Admin: 09/02/20 23:28 Dose: 10 mg Documented by: Ondansetron HCl (Ondansetron 4 Mg/2 Ml Inj) 4 mg IV Q8H PRN PRN Reason: Nausea And Vomiting Pantoprazole Sodium (Pantoprazole 40 Mg Tab) 40 mg PO BID [facility] Last Admin: 09/02/20 23:27 Dose: 40 mg Documented by: Quetiapine Fumarate (Quetiapine 200 Mg Tab) 400 mg PO BID [facility] Last Admin: 09/02/20 23:27 Dose: 400 mg Documented by: Sevelamer Carbonate (Sevelamer Carbonate 800 Mg Tab) 800 mg PO TIDWM [facility] Sodium Chloride (Sodium Chloride 0.9% 10 Ml Flush Syringe) 10 ml IV BID [facility] Last Admin: 09/02/20 23:31 Dose: 10 ml Documented by: Sodium Chloride (Sodium Chloride 0.9% 10 Ml Flush Syringe) 10 ml IV PRN PRN PRN Reason: LINE FLUSH Valproic Acid (Valproic Acid 250 Mg/5 Ml Oral Liqd) 500 mg PO DAILY [facility] Exam - Constitutional Vitals: Temp Pulse Resp BP Pulse Ox 98.8 F 94 H 18 107/56 95 09/02/20 14:20 09/03/20 03:00 09/03/20 03:00 09/03/20 03:00 09/03/20 03:00 Results - Labs CBC & Chem 7: 09/03/20 04:46 09/03/20 04:46 Labs: Laboratory Last Values WBC 4.2 K/mm3 (4.5-11.0) L 09/03/20 04:46 RBC 3.01 M/mm3 (3.65-5.03) L 09/03/20 04:46 Hgb 7.5 gm/dl (10.1-14.3) L 09/03/20 04:46 Hct 24.1 % (30.3-42.9) L 09/03/20 04:46 MCV 80 fl (79-97) 09/03/20 04:46 MCH 25 pg (28-32) L 09/03/20 04:46 MCHC 31 % (30-34) 09/03/20 04:46 RDW 18.4 % (13.2-15.2) H 09/03/20 04:46 Plt Count 160 K/mm3 (140-440) 09/03/20 04:46 Lymph % (Auto) 10.8 % (13.4-35.0) L 09/03/20 04:46 Liberty % (Auto) 5.3 % (0.0-7.3) 09/03/20 04:46 Eos % (Auto) 0.0 % (0.0-4.3) 09/03/20 04:46 Baso % (Auto) 0.3 % (0.0-1.8) 09/03/20 04:46 Lymph # (Auto) 0.5 K/mm3 (1.2-5.4) L 09/03/20 04:46 Liberty # (Auto) 0.2 K/mm3 (0.0-0.8) 09/03/20 04:46 Eos # (Auto) 0.0 K/mm3 (0.0-0.4) 09/03/20 04:46 Baso # (Auto) 0.0 K/mm3 (0.0-0.1) 09/03/20 04:46 Add Manual Diff Complete 09/02/20 12:42 Seg Neutrophils % 83.6 % (40.0-70.0) H 09/03/20 04:46 Seg Neutrophils # 3.5 K/mm3 (1.8-7.7) 09/03/20 04:46 PT 15.2 Sec. (12.2-14.9) H 09/02/20 20:58 INR 1.22 (0.87-1.13) H 09/02/20 20:58 APTT 34.5 Sec. (24.2-36.6) 09/02/20 20:58 D-Dimer 2836.58 ng/mlDDU (0-234) H 09/02/20 15:12 Heparin Anti-Xa Level 0.54 U.I./ml (0.3-0.7) 09/03/20 04:46 VBG pH 7.337 (7.320-7.420) 09/02/20 12:42 Sodium 142 mmol/L (137-145) 09/03/20 04:46 Potassium 5.4 mmol/L (3.6-5.0) H 09/03/20 04:46 Chloride 104.6 mmol/L (98-107) 09/03/20 04:46 Carbon Dioxide 17 mmol/L (22-30) L 09/03/20 04:46 Anion Gap 26 mmol/L 09/03/20 04:46 BUN 80 mg/dL (7-17) H 09/03/20 04:46 Creatinine 6.9 mg/dL (0.6-1.2) H 09/03/20 04:46 Estimated GFR 7 ml/min 09/03/20 04:46 BUN/Creatinine Ratio 12 % 09/03/20 04:46 Glucose 193 mg/dL (65-100) H 09/03/20 04:46 Hemoglobin A1c 5.3 % (4-6) 09/02/20 20:58 Lactic Acid 0.60 mmol/L (0.7-2.0) L 09/02/20 15:12 Calcium 9.8 mg/dL (8.4-10.2) 09/03/20 04:46 Ferritin 3094.0 ng/mL (10.0-200.0) H 09/02/20 15:12 Total Bilirubin 0.20 mg/dL (0.1-1.2) 09/03/20 04:46 AST 201 units/L (5-40) H 09/03/20 04:46 ALT 139 units/L (7-56) H 09/03/20 04:46 Alkaline Phosphatase 270 units/L (35-129) H 09/03/20 04:46 Lactate Dehydrogenase 209 units/L (91-180) H 09/02/20 15:12 C-Reactive Protein 32.80 mg/dL (0.00-1.30) H 09/02/20 15:12 Total Protein 6.1 g/dL (6.3-8.2) L 09/03/20 04:46 Albumin 2.9 g/dL (3.9-5) L 09/03/20 04:46 Albumin/Globulin Ratio 0.9 % 09/03/20 04:46 Procalcitonin 19.18 ng/mL (<0.15) 09/02/20 15:12 Urine Color Yellow (Yellow) 09/02/20 12:25 Urine Turbidity Clear (Clear) 09/02/20 12:25 Urine pH 7.0 (5.0-7.0) 09/02/20 12:25 Ur Specific Gregory 1.012 (1.003-1.030) 09/02/20 12:25 Urine Protein 100 mg/dl mg/dL (Negative) 09/02/20 12:25 Urine Glucose (UA) Neg mg/dL (Negative) 09/02/20 12:25 Urine Ketones Tr mg/dL (Negative) 09/02/20 12:25 Urine Blood Neg (Negative) 09/02/20 12:25 Urine Nitrite Neg (Negative) 09/02/20 12:25 Urine Bilirubin Neg (Negative) 09/02/20 12:25 Urine Urobilinogen 2.0 mg/dL (<2.0) 09/02/20 12:25 Ur Leukocyte Esterase Tr (Negative) 09/02/20 12:25 Urine WBC (Auto) 7.0 /HPF (0.0-6.0) H 09/02/20 12:25 Urine RBC (Auto) 1.0 /HPF (0.0-6.0) 09/02/20 12:25 U Epithel Cells (Auto) 1.0 /HPF (0-13.0) 09/02/20 12:25 Urine Mucus Few /HPF 09/02/20 12:25 Coronavirus (PCR) Negative (Negative) 09/03/20 10:00 Microbiology: Microbiology 09/02/20 12:42 Peripheral/Venous Blood Culture - Preliminary Staphylococcus Aureus 09/02/20 12:42 Peripheral/Venous Blood Culture - Preliminary Staphylococcus Aureus 09/02/20 12:25 Urine,Catheterized - Straight Catheter Urine Culture - Preliminary NO GROWTH AFTER 24 HOURS Cleary/IV: IV Catheter Type [Right INT / Saline Lock Subclavian] Assessment and Plan - Patient Problems (1) Transaminitis Current Visit: Yes Status: Acute Plan to address problem: Possibly sec to Covid
[2020-09-02 21:17] LABS: Hematocrit 25.1 % (30.3-42.9); Hemoglobin 7.6 gm/dl (10.1-14.3)
[2020-09-02 21:28] LABS: INR 1.22 (0.87-1.13)
[2020-09-02 21:29] LABS: Partial Thromboplastin Time 34.5 Sec. (24.2-36.6)
[2020-09-02] MEDS: HEPARIN/ 0.45% NACL DRIP 25,000 UNIT/500 ML BAG IV SCH (21:36)
[2020-09-02] MEDS ORDERED: VALPROIC ACID 250 MG/5 ML ORAL LIQD PO SCH (22:00)
[2020-09-02] MEDS ORDERED: DIVALPROEX PO SCH (22:00)
[2020-09-02] MEDS: LORazepam 1 MG TAB PO SCH (23:27)
[2020-09-02] MEDS: PANTOPRAZOLE 40 MG TAB PO SCH (23:27)
[2020-09-02] MEDS: QUEtiapine 200 MG TAB PO SCH (23:27)
[2020-09-02] MEDS: MIDODRINE 5 MG TAB PO SCH (23:28)
[2020-09-02] MEDS: DIVALPROEX SPRINKLE 125 MG CAP PO SCH (23:30)
[2020-09-02] MEDS: FAMOTIDINE 10 MG TAB PO SCH (23:30)
[2020-09-03 05:25] LABS: Hematocrit 24.1 % (30.3-42.9); Hemoglobin 7.5 gm/dl (10.1-14.3); Mean Corpuscular HGB Conc 31 % (30-34); Mean Corpuscular Volume 80 fl (79-97); Platelet Count 160 K/mm3 (140-440); Red Blood Count 3.01 M/mm3 (3.65-5.03); Red Cell Distribution Width 18.4 % (13.2-15.2)
[2020-09-03 05:28] LABS: Basophils % (Auto) 0.3 % (0.0-1.8); Lymphocytes # (Auto) 0.5 K/mm3 (1.2-5.4); Lymphocytes % (Auto) 10.8 % (13.4-35.0); Monocytes # (Auto) 0.2 K/mm3 (0.0-0.8); Monocytes % (Auto) 5.3 % (0.0-7.3)
[2020-09-03 06:03] LABS: Albumin 2.9 g/dL (3.9-5); Calcium 9.8 mg/dL (8.4-10.2)
--- NOTE | 2020-09-03 08:05 | Nuclear Medicine Report ---
NUCLEAR MEDICINE PERFUSION ONLY LUNG SCAN HISTORY: Hypoxia, elevated d-dimer, shortness of breath TECHNIQUE: 5.2 mCi of technetium 99m MAA was administered intravenously. Multiple perfusion images of the chest were obtained. COMPARISON: AP chest dated 09/02/2020 FINDINGS: The scintigraphic images demonstrate homogeneous distribution of the radiotracer throughout both lung s. No perfusion defect to suggest pulmonary embolus is detected. IMPRESSION: Low probability for pulmonary embolus. Signer Name: Magen Silverio Jr, MD Signed: 09/03/2020 8:01 AM Workstation Name: [id number]
[2020-09-03] MEDS ORDERED: dexAMETHasone 4 MG/ML VIAL IV SCH (10:00)
[2020-09-03] MEDS ORDERED: AZTREONAM 500 MG in SODIUM CHLORIDE 0.9% 50 ML IV ONE (11:51)
[2020-09-03] MEDS ORDERED: SODIUM CHLORIDE 0.9% 100 ML IV PRN (11:55)
--- NOTE | 2020-09-03 14:00 | Consultation ---
History of Present Illness - Reason for Consult Consult date: 09/03/20 end stage renal disease - History of Present Illness This is a 65-year-old woman, a half-way resident, with end-stage renal disease on dialysis, hypertension, psyciatric illness and GERD who presented with altered mental status, and shortness of breath. While in the ED patient was noted to be febrile with T-max 102.8, and hypoxic on room air. Nephrology was consulted for end-stage renal disease management. Review of system and physical exam deferred as patient is Covid PUI, keeping in mind the PPE conservation strategy and in order to prevent spread of infection. Emergency department and primary team review of system and physical exam reviewed. Past History Past Medical History: diabetes, ESRD, GERD, hypertension, other (Bipolar, schizophrenia, dysphagia, cognitive communication deficit, anxiety, chronic anemia, seizures, generalized weakness ) Past Surgical History: hysterectomy, Other (Right chest permacath, SHAYY AV fistula ) Social history: other (half-way resident ([facility])) Family history: no significant family history Medications and Allergies Allergies Allergy/AdvReac Type Severity Reaction Status Date / Time Penicillins Allergy Rash Verified 03/15/20 07:07 corn AdvReac Unknown Verified 03/15/20 07:07 Home Medications Medication Instructions Recorded Confirmed Last Taken Type Acetaminophen [Acetaminophen TAB] 650 mg PO Q4H PRN tablet 06/03/19 09/02/20 09/02/20 Rx LORazepam [Ativan] 1 mg PO BID 08/20/19 09/02/20 03/28/20 17:00 History Memantine Xr [Namenda Xr] 5 mg PO DAILY 08/20/19 09/02/20 03/28/20 09:00 History Midodrine [Proamatine] 10 mg PO TID 08/20/19 09/02/20 03/28/20 17:00 History QUEtiapine [SEROquel] 400 mg PO BID 08/20/19 09/02/20 03/28/20 20:00 History Pantoprazole [Protonix TAB] 40 mg PO BID tablet 10/12/19 09/02/20 03/28/20 17:00 Rx HYDROcodone/APAP 5-325 [[place] 1 each PO Q6H PRN #24 tablet 03/29/20 09/02/20 Unknown Rx 5-325 mg TAB] Divalproex Sprinkle 1,500 mg PO QHS 09/02/20 09/02/20 Unknown History Divalproex Sprinkle [DepaKOTE 250 mg PO ONCE 09/02/20 09/02/20 Unknown History SPRINKLE] Sevelamer Carbonate [Renvela] 0.8 gram PO TIDWM 09/02/20 09/02/20 Unknown History VALPROIC ACID Liq [DepaKENE Liq] 500 mg PO DAILY 09/02/20 09/02/20 Unknown History Active Meds: Active Medications Acetaminophen (Acetaminophen 325 Mg Tab) 650 mg PO Q4H PRN PRN Reason: Pain MILD(1-3)/Fever >100.5/DRAKE Hydrocodone Bitart/Acetaminophen (Hydrocodone/Acetaminophen 5-325 Mg Tab) 1 each PO Q6H PRN PRN Reason: Pain, Moderate (4-6) Dexamethasone (Dexamethasone 4 Mg/Ml Vial) 6 mg IV Q24HR [facility] Divalproex Sodium (Divalproex Sprinkle 125 Mg Cap) 250 mg PO QDAY@1700 [facility] Divalproex Sodium (Divalproex Sprinkle 125 Mg Cap) 1,500 mg PO QHS [facility] Last Admin: 09/02/20 23:30 Dose: 1,500 mg Documented by: Famotidine (Famotidine 10 Mg Tab) 10 mg PO BID [facility] Last Admin: 09/02/20 23:30 Dose: 10 mg Documented by: Heparin Sodium (Porcine) (Heparin 10,000 Units/10 Ml Vial) 2,400 unit 40 unit/kg (2400 unit) IV Q6H PRN PRN Reason: Anti-Xa Assay < 0.1 units/ml Hydromorphone HCl (Hydromorphone 1 Mg/1 Ml Inj) 0.5 mg IV Q3H PRN PRN Reason: Pain , Severe (7-10) Heparin Sodium/Sodium Chloride (Heparin/ 0.45% Nacl-25,000 Unit/500 Ml) 25,000 unit in 500 mls @ 18 mls/hr IV TITR [facility]; Protocol Last Titration: 09/03/20 06:01 Dose: 839 units/hr, 16.78 mls/hr Documented by: Aztreonam 500 mg/ Sodium (Chloride) 50 mls @ 50 mls/30 min IV Q12HR ONE; Protocol Stop: 09/03/20 12:20 Sodium Chloride (Nacl 0.9%) 100 mls @ 999 mls/hr IV BIANCA PRN PRN Reason: Hypotension Lorazepam (Lorazepam 1 Mg Tab) 1 mg PO BID [facility] Last Admin: 09/02/20 23:27 Dose: 1 mg Documented by: Memantine (Memantine 5 Mg Tab) 5 mg PO QDAY [facility] Midodrine (Midodrine 5 Mg Tab) 10 mg PO TID@0800,1200,1600 [facility] Last Admin: 09/02/20 23:28 Dose: 10 mg Documented by: Ondansetron HCl (Ondansetron 4 Mg/2 Ml Inj) 4 mg IV Q8H PRN PRN Reason: Nausea And Vomiting Pantoprazole Sodium (Pantoprazole 40 Mg Tab) 40 mg PO BID [facility] Last Admin: 09/02/20 23:27 Dose: 40 mg Documented by: Quetiapine Fumarate (Quetiapine 200 Mg Tab) 400 mg PO BID [facility] Last Admin: 09/02/20 23:27 Dose: 400 mg Documented by: Sevelamer Carbonate (Sevelamer Carbonate 800 Mg Tab) 800 mg PO TIDWM [facility] Sodium Chloride (Sodium Chloride 0.9% 10 Ml Flush Syringe) 10 ml IV BID [facility] Last Admin: 09/02/20 23:31 Dose: 10 ml Documented by: Sodium Chloride (Sodium Chloride 0.9% 10 Ml Flush Syringe) 10 ml IV PRN PRN PRN Reason: LINE FLUSH Valproic Acid (Valproic Acid 250 Mg/5 Ml Oral Liqd) 500 mg PO DAILY [facility] Exam - Vital Signs Vital signs: Vital Signs Pulse Ox 99 09/02/20 11:41 Results - Lab Results 09/03/20 04:46 09/03/20 04:46 Most recent lab results Calcium 9.8 mg/dL (8.4-10.2) 09/03/20 04:46 Assessment and Plan Assessment - End-stage renal disease on hemodialysis - Acute encephalopathy - Hyperkalemia - SIRS - Hypoxia - Acidosis - Chronic hypotension - Anemia of ESRD - Hyperparathyroidism - Hyperphosphatemia - Transaminitis - COVID PUI Recommendations - HD today for clearance - Continue Midrodrine with HD - Hold epogen during acute illness - Transfuse for hgb < 7 - Continue phosphorus binders - ESRD diet with 1.4 g/kg per day protein - Renally dose medication for creatinine clearance less than 15 cc/min
--- NOTE | 2020-09-03 14:18 | Progress Note ---
Assessment and Plan Assessment and plan: 65-year-old female who is a resident of [facility] with history of end-stage renal disease on dialysis, hypertension, bipolar, anxiety, schizophrenia, and GERD who presents to [facility] ED via EMS with complaints of altered mental status, and difficulty breathing. Patient is unable to provide history. History is provided by medical report and review of records. Per prison staff patient's mentation was altered and displayed difficulty breathing and so she was sent to the ED for further evaluation and treatment. While in the ED patient was noted to be febrile with T-max 102.8, and hypoxic on room air. Here patient had a blood culture. Started on IV antibiotics. Was placed on oxygen supplementation. Coronavirus test ordered and was negative. 09/03. Blood culture growing staph aureus. ID on board. Patient has a permacath on the right chest through which she gets hemodialysis. Vascular surgery consulted for removal of catheter. Echocardiogram ordered to rule out endocarditis Plan Sepsis -Blood culture showed staph pruritus -Source of infection likely permacath. Vascular surgery consulted for permacath removal -Continue IV antibiotics -ID consulted Staph bacteremia Continue antibiotics Blood culture repeat sent Transaminitis As result of ongoing systemic infection Continue to trend Acute metabolic encephalopathy -Resolved Elevated D-dimer V/Q showed probability of PE COVID-19 ruled out ESRD Hemodialysis as scheduled DVT prophylaxis Heparin products History Interval history: Patient seen and examined at bedside this morning Hospitalist Physical - Physical exam Narrative exam: VITAL SIGNS: Reviewed. GENERAL: Awake HEAD: No signs of head trauma. EYES: Pupils are equal. Extraocular motions intact. MOUTH: Oropharynx is normal. NECK: No adenopathy, no JVD. CHEST: Chest with diminished breath sounds bilaterally. No wheezes, rales, or rhonchi. CARDIAC: normal S1 and S2, without murmurs, gallops, or rubs. ABDOMEN: Soft, non tender and non distended. No rebound or guarding, and no masses palpated. Bowel Sounds normal. MUSCULOSKELETAL: Edema NEUROLOGIC EXAM: Alert and oriented x3. No focal neurologic deficits SKIN: No obvious lesions - Constitutional Vitals: Temp Pulse Resp BP Pulse Ox 98.8 F 94 H 18 107/56 95 09/02/20 14:20 09/03/20 03:00 09/03/20 03:00 09/03/20 03:00 09/03/20 03:00 HEART Score - HEART Score EKG: Normal Age: > 65 Results - Labs CBC & Chem 7: 09/04/20 05:19 09/03/20 04:46 Labs: Laboratory Last Values WBC 4.2 K/mm3 (4.5-11.0) L 09/03/20 04:46 RBC 3.01 M/mm3 (3.65-5.03) L 09/03/20 04:46 Hgb 7.5 gm/dl (10.1-14.3) L 09/03/20 04:46 Hct 24.1 % (30.3-42.9) L 09/03/20 04:46 MCV 80 fl (79-97) 09/03/20 04:46 MCH 25 pg (28-32) L 09/03/20 04:46 MCHC 31 % (30-34) 09/03/20 04:46 RDW 18.4 % (13.2-15.2) H 09/03/20 04:46 Plt Count 160 K/mm3 (140-440) 09/03/20 04:46 Lymph % (Auto) 10.8 % (13.4-35.0) L 09/03/20 04:46 [place] % (Auto) 5.3 % (0.0-7.3) 09/03/20 04:46 Eos % (Auto) 0.0 % (0.0-4.3) 09/03/20 04:46 Baso % (Auto) 0.3 % (0.0-1.8) 09/03/20 04:46 Lymph # (Auto) 0.5 K/mm3 (1.2-5.4) L 09/03/20 04:46 [place] # (Auto) 0.2 K/mm3 (0.0-0.8) 09/03/20 04:46 Eos # (Auto) 0.0 K/mm3 (0.0-0.4) 09/03/20 04:46 Baso # (Auto) 0.0 K/mm3 (0.0-0.1) 09/03/20 04:46 Add Manual Diff Complete 09/02/20 12:42 Seg Neutrophils % 83.6 % (40.0-70.0) H 09/03/20 04:46 Seg Neutrophils # 3.5 K/mm3 (1.8-7.7) 09/03/20 04:46 PT 15.2 Sec. (12.2-14.9) H 09/02/20 20:58 INR 1.22 (0.87-1.13) H 09/02/20 20:58 APTT 34.5 Sec. (24.2-36.6) 09/02/20 20:58 D-Dimer 2836.58 ng/mlDDU (0-234) H 09/02/20 15:12 Heparin Anti-Xa Level 0.54 U.I./ml (0.3-0.7) 09/03/20 04:46 VBG pH 7.337 (7.320-7.420) 09/02/20 12:42 Sodium 142 mmol/L (137-145) 09/03/20 04:46 Potassium 5.4 mmol/L (3.6-5.0) H 09/03/20 04:46 Chloride 104.6 mmol/L (98-107) 09/03/20 04:46 Carbon Dioxide 17 mmol/L (22-30) L 09/03/20 04:46 Anion Gap 26 mmol/L 09/03/20 04:46 BUN 80 mg/dL (7-17) H 09/03/20 04:46 Creatinine 6.9 mg/dL (0.6-1.2) H 09/03/20 04:46 Estimated GFR 7 ml/min 09/03/20 04:46 BUN/Creatinine Ratio 12 % 09/03/20 04:46 Glucose 193 mg/dL (65-100) H 09/03/20 04:46 Hemoglobin A1c 5.3 % (4-6) 09/02/20 20:58 Lactic Acid 0.60 mmol/L (0.7-2.0) L 09/02/20 15:12 Calcium 9.8 mg/dL (8.4-10.2) 09/03/20 04:46 Ferritin 3094.0 ng/mL (10.0-200.0) H 09/02/20 15:12 Total Bilirubin 0.20 mg/dL (0.1-1.2) 09/03/20 04:46 AST 201 units/L (5-40) H 09/03/20 04:46 ALT 139 units/L (7-56) H 09/03/20 04:46 Alkaline Phosphatase 270 units/L (35-129) H 09/03/20 04:46 Lactate Dehydrogenase 209 units/L (91-180) H 09/02/20 15:12 C-Reactive Protein 32.80 mg/dL (0.00-1.30) H 09/02/20 15:12 Total Protein 6.1 g/dL (6.3-8.2) L 09/03/20 04:46 Albumin 2.9 g/dL (3.9-5) L 09/03/20 04:46 Albumin/Globulin Ratio 0.9 % 09/03/20 04:46 Procalcitonin 19.18 ng/mL (<0.15) 09/02/20 15:12 Urine Color Yellow (Yellow) 09/02/20 12:25 Urine Turbidity Clear (Clear) 09/02/20 12:25 Urine pH 7.0 (5.0-7.0) 09/02/20 12:25 Ur Specific [place] 1.012 (1.003-1.030) 09/02/20 12:25 Urine Protein 100 mg/dl mg/dL (Negative) 09/02/20 12:25 Urine Glucose (UA) Neg mg/dL (Negative) 09/02/20 12:25 Urine Ketones Tr mg/dL (Negative) 09/02/20 12:25 Urine Blood Neg (Negative) 09/02/20 12:25 Urine Nitrite Neg (Negative) 09/02/20 12:25 Urine Bilirubin Neg (Negative) 09/02/20 12:25 Urine Urobilinogen 2.0 mg/dL (<2.0) 09/02/20 12:25 Ur Leukocyte Esterase Tr (Negative) 09/02/20 12:25 Urine WBC (Auto) 7.0 /HPF (0.0-6.0) H 09/02/20 12:25 Urine RBC (Auto) 1.0 /HPF (0.0-6.0) 09/02/20 12:25 U Epithel Cells (Auto) 1.0 /HPF (0-13.0) 09/02/20 12:25 Urine Mucus Few /HPF 09/02/20 12:25 Microbiology: Microbiology 09/02/20 12:42 Peripheral/Venous Blood Culture - Preliminary Staphylococcus Aureus 09/02/20 12:42 Peripheral/Venous Blood Culture - Preliminary Staphylococcus Aureus 09/02/20 12:25 Urine,Catheterized - Straight Catheter Urine Culture - Preliminary NO GROWTH AFTER 24 HOURS [place]/IV: IV Catheter Type [Right INT / Saline Lock Subclavian] Active Medications - Current Medications Current Medications: Generic Name Dose Route Start Last Admin Trade Name Freq PRN Reason Stop Dose Admin Acetaminophen 650 mg 09/02/20 19:55 Acetaminophen 325 Mg Tab PO Q4H PRN Pain MILD(1-3)/Fever >100.5/DRAKE Hydrocodone Bitart/Acetaminophen 1 each 09/02/20 19:55 Hydrocodone/Acetaminophen 5-325 Mg Tab PO Q6H PRN Pain, Moderate (4-6) Dexamethasone 6 mg 09/03/20 10:00 Dexamethasone 4 Mg/Ml Vial IV Q24HR CON[facility] Divalproex Sodium 250 mg 09/03/20 17:00 Divalproex Sprinkle 125 Mg Cap PO QDAY@1700 [facility] Divalproex Sodium 1,500 mg 09/02/20 22:00 09/02/20 23:30 Divalproex Sprinkle 125 Mg Cap PO 1,500 mg QHS [facility] Administration Famotidine 10 mg 09/02/20 22:00 09/02/20 23:30 Famotidine 10 Mg Tab PO 10 mg BID CONNOR Administration Heparin Sodium (Porcine) 2,400 unit 09/02/20 20:23 Heparin 10,000 Units/10 Ml Vial 40 unit/kg (2400 unit) IV Q6H PRN Anti-Xa Assay < 0.1 units/ml Hydromorphone HCl 0.5 mg 09/02/20 19:59 Hydromorphone 1 Mg/1 Ml Inj IV Q3H PRN Pain , Severe (7-10) Heparin Sodium/Sodium Chloride 25,000 unit in 500 mls @ 18 mls/hr 09/02/20 21:00 09/03/20 06:01 Heparin/ 0.45% Nacl-25,000 Unit/500 Ml IV 839 units/hr TITR [facility] 16.78 mls/hr Titration Protocol 900 UNITS/HR Sodium Chloride 100 mls @ 999 mls/hr 09/03/20 11:55 Nacl 0.9% IV BIANCA PRN Hypotension Vancomycin HCl 1,250 mg/ 275 mls @ 166.667 mls/hr 09/03/20 15:00 Sodium Chloride IV 09/03/20 16:38 ONCE ONE Lorazepam 1 mg 09/02/20 22:00 09/02/20 23:27 Lorazepam 1 Mg Tab PO 1 mg BID [facility] Administration Memantine 5 mg 09/03/20 10:00 Memantine 5 Mg Tab PO QDAY [facility] Midodrine 10 mg 09/02/20 20:00 09/02/20 23:28 Midodrine 5 Mg Tab PO 10 mg TID@0800,1200,1600 [facility] Administration Ondansetron HCl 4 mg 09/02/20 19:59 Ondansetron 4 Mg/2 Ml Inj IV Q8H PRN Nausea And Vomiting Pantoprazole Sodium 40 mg 09/02/20 22:00 09/02/20 23:27 Pantoprazole 40 Mg Tab PO 40 mg BID [facility] Administration Quetiapine Fumarate 400 mg 09/02/20 22:00 09/02/20 23:27 Quetiapine 200 Mg Tab PO 400 mg BID [facility] Administration Sevelamer Carbonate 800 mg 09/03/20 08:00 Sevelamer Carbonate 800 Mg Tab PO TIDWM [facility] Sodium Chloride 10 ml 09/02/20 22:00 09/02/20 23:31 Sodium Chloride 0.9% 10 Ml Flush Syringe IV 10 ml BID [facility] Administration Sodium Chloride 10 ml 09/02/20 19:59 Sodium Chloride 0.9% 10 Ml Flush Syringe IV PRN PRN LINE FLUSH Valproic Acid 500 mg 09/03/20 10:00 Valproic Acid 250 Mg/5 Ml Oral Liqd PO DAILY [facility]
[2020-09-03] MEDS ORDERED: VANCOMYCIN 1,250 MG in SODIUM CHLORIDE 0.9% 250ML 250 ML IV ONE (15:00)
[2020-09-03] MEDS ORDERED: VANCOMYCIN PHARMACY TO DOSE IV SCH (15:00)
--- NOTE | 2020-09-03 16:32 | Consultation ---
History of Present Illness - Reason for Consult Consult date: 09/03/20 Bacteremia Requesting physician: DONNIE MASCORRO - History of Present Illness 65 years old female with history of end-stage renal disease on hemodialysis, hypertension, schizophrenia, previous malfunctional HD access, PermCath exchange in 2019, admitted on 09/02/2020 secondary to altered mental status, confusion and shortness of breath. Patient is not the best historian. She is unable to p rovide history. On arrival, temperature 102.8, HR 130, RR 24, O2 sat 99, BP 118/57. Initial WBC 4.2. Hemoglobin 9.1. AST 227. ALT 114. CRP 32. Ferritin 3094. D-dimer 2886. Procalcitonin 19. Chest x-ray unremarkable. VQ scan low probability for PE. SARS-CoV-2 PCR negative. Blood cultures 09/02/2020 Staph aureus 2 out of 4 bottles. 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[employer])) Family history: no significant family history Medications and Allergies Allergies Allergy/AdvReac Type Severity Reaction Status Date / Time Penicillins Allergy Rash Verified 03/15/20 07:07 corn AdvReac Unknown Verified 03/15/20 07:07 Home Medications Medication Instructions Recorded Confirmed Last Taken Type Acetaminophen [Acetaminophen TAB] 650 mg PO Q4H PRN tablet 06/03/19 09/02/20 09/02/20 Rx LORazepam [Ativan] 1 mg PO BID 08/20/19 09/02/20 03/28/20 17:00 History Memantine Xr [Namenda Xr] 5 mg PO DAILY 08/20/19 09/02/20 03/28/20 09:00 History Midodrine [Proamatine] 10 mg PO TID 08/20/19 09/02/20 03/28/20 17:00 History QUEtiapine [SEROquel] 400 mg PO BID 08/20/19 09/02/20 03/28/20 20:00 History Pantoprazole [Protonix TAB] 40 mg PO BID tablet 10/12/19 09/02/20 03/28/20 17:00 Rx HYDROcodone/APAP 5-325 [[place] 1 each PO Q6H PRN #24 tablet 03/29/20 09/02/20 Unknown Rx 5-325 mg TAB] Divalproex Sprinkle 1,500 mg PO QHS 09/02/20 09/02/20 Unknown History Divalproex Sprinkle [DepaKOTE 250 mg PO ONCE 09/02/20 09/02/20 Unknown History SPRINKLE] Sevelamer Carbonate [Renvela] 0.8 gram PO TIDWM 09/02/20 09/02/20 Unknown History VALPROIC ACID Liq [DepaKENE Liq] 500 mg PO DAILY 09/02/20 09/02/20 Unknown History Active Meds: Active Medications Acetaminophen (Acetaminophen 325 Mg Tab) 650 mg PO Q4H PRN PRN Reason: Pain MILD(1-3)/Fever >100.5/DRAKE Hydrocodone Bitart/Acetaminophen (Hydrocodone/Acetaminophen 5-325 Mg Tab) 1 each PO Q6H PRN PRN Reason: Pain, Moderate (4-6) Divalproex Sodium (Divalproex Sprinkle 125 Mg Cap) 250 mg PO QDAY@1700 [facility] Divalproex Sodium (Divalproex Sprinkle 125 Mg Cap) 1,500 mg PO QHS [facility] Last Admin: 09/02/20 23:30 Dose: 1,500 mg Documented by: Famotidine (Famotidine 10 Mg Tab) 10 mg PO BID [facility] Last Admin: 09/02/20 23:30 Dose: 10 mg Documented by: Heparin Sodium (Porcine) (Heparin 10,000 Units/10 Ml Vial) 2,400 unit 40 unit/kg (2400 unit) IV Q6H PRN PRN Reason: Anti-Xa Assay < 0.1 units/ml Hydromorphone HCl (Hydromorphone 1 Mg/1 Ml Inj) 0.5 mg IV Q3H PRN PRN Reason: Pain , Severe (7-10) Heparin Sodium/Sodium Chloride (Heparin/ 0.45% Nacl-25,000 Unit/500 Ml) 25,000 unit in 500 mls @ 18 mls/hr IV TITR [facility]; Protocol Last Titration: 09/03/20 06:01 Dose: 839 units/hr, 16.78 mls/hr Documented by: Sodium Chloride (Nacl 0.9%) 100 mls @ 999 mls/hr IV BIANCA PRN PRN Reason: Hypotension Vancomycin HCl 1,250 mg/ (Sodium Chloride) 275 mls @ 166.667 mls/hr IV ONCE ONE Stop: 09/03/20 16:38 Lorazepam (Lorazepam 1 Mg Tab) 1 mg PO BID [facility] Last Admin: 09/02/20 23:27 Dose: 1 mg Documented by: Memantine (Memantine 5 Mg Tab) 5 mg PO QDAY [facility] Midodrine (Midodrine 5 Mg Tab) 10 mg PO TID@0800,1200,1600 [facility] Last Admin: 09/02/20 23:28 Dose: 10 mg Documented by: Ondansetron HCl (Ondansetron 4 Mg/2 Ml Inj) 4 mg IV Q8H PRN PRN Reason: Nausea And Vomiting Pantoprazole Sodium (Pantoprazole 40 Mg Tab) 40 mg PO BID [facility] Last Admin: 09/02/20 23:27 Dose: 40 mg Documented by: Quetiapine Fumarate (Quetiapine 200 Mg Tab) 400 mg PO BID [facility] Last Admin: 09/02/20 23:27 Dose: 400 mg Documented by: Sevelamer Carbonate (Sevelamer Carbonate 800 Mg Tab) 800 mg PO TIDWM [facility] Sodium Chloride (Sodium Chloride 0.9% 10 Ml Flush Syringe) 10 ml IV BID [facility] Last Admin: 09/02/20 23:31 Dose: 10 ml Documented by: Sodium Chloride (Sodium Chloride 0.9% 10 Ml Flush Syringe) 10 ml IV PRN PRN PRN Reason: LINE FLUSH Valproic Acid (Valproic Acid 250 Mg/5 Ml Oral Liqd) 500 mg PO DAILY [facility] Physical Examination - Physical Exam Narrative exam: General appearance: Alert in NAD agitated confused Eyes: anicteric sclerae, moist conjunctivae; no lid-lag; PERRLA HENT: Normocephalic, Atraumatic; normal external ears, nares open, oropharynx clear with moist mucous membranes and no oral thrush; normal hard and soft palate. Neck: supple, tracheal midline, no JVD Lungs: CTA, with normal respiratory effort and no intercostal retractions CV: RRR no murmur Abdomen: Soft, non-tender; no masses or hepatosplenomegaly Extremities: no edema, no cyanosis Skin: No rash. Psych: Agitated Neuro: Confused agitated moving all extremities - Constitutional Vitals: Vital Signs Temp Pulse Resp BP Pulse Ox 98.0 F 102 H 22 117/58 98 09/03/20 12:17 09/03/20 12:17 09/03/20 12:17 09/03/20 12:17 09/03/20 12:17 Temperature -Last 24 Hours Temperature 98.0 F Results - Labs CBC & Chem 7: 09/03/20 04:46 09/03/20 04:46 Labs: Abnormal lab results 09/02/20 09/02/20 09/02/20 Range/Units 15:12 15:12 15:12 WBC (4.5-11.0) K/mm3 RBC (3.65-5.03) M/mm3 Hgb (10.1-14.3) gm/dl Hct (30.3-42.9) % MCH (28-32) pg RDW (13.2-15.2) % Lymph % (Auto) (13.4-35.0) % Lymph # (Auto) (1.2-5.4) K/mm3 Seg Neutrophils % (40.0-70.0) % PT (12.2-14.9) Sec. INR (0.87-1.13) D-Dimer 2836.58 H (0-234) ng/mlDDU Heparin Anti-Xa Level (0.3-0.7) U.I./ml Potassium (3.6-5.0) mmol/L Carbon Dioxide (22-30) mmol/L BUN (7-17) mg/dL Creatinine (0.6-1.2) mg/dL Glucose (65-100) mg/dL Lactic Acid 0.60 L (0.7-2.0) mmol/L Ferritin (10.0-200.0) ng/mL AST (5-40) units/L ALT (7-56) units/L Alkaline Phosphatase (35-129) units/L Lactate Dehydrogenase 209 H (91-180) units/L C-Reactive Protein 32.80 H (0.00-1.30) mg/dL Total Protein (6.3-8.2) g/dL Albumin (3.9-5) g/dL 09/02/20 09/02/20 09/02/20 Range/Units 15:12 20:58 20:58 WBC (4.5-11.0) K/mm3 RBC (3.65-5.03) M/mm3 Hgb 7.6 L (10.1-14.3) gm/dl Hct 25.1 L (30.3-42.9) % MCH (28-32) pg RDW (13.2-15.2) % Lymph % (Auto) (13.4-35.0) % Lymph # (Auto) (1.2-5.4) K/mm3 Seg Neutrophils % (40.0-70.0) % PT 15.2 H (12.2-14.9) Sec. INR 1.22 H (0.87-1.13) D-Dimer (0-234) ng/mlDDU Heparin Anti-Xa Level (0.3-0.7) U.I./ml Potassium (3.6-5.0) mmol/L Carbon Dioxide (22-30) mmol/L BUN (7-17) mg/dL Creatinine (0.6-1.2) mg/dL Glucose (65-100) mg/dL Lactic Acid (0.7-2.0) mmol/L Ferritin 3094.0 H (10.0-200.0) ng/mL AST (5-40) units/L ALT (7-56) units/L Alkaline Phosphatase (35-129) units/L Lactate Dehydrogenase (91-180) units/L C-Reactive Protein (0.00-1.30) mg/dL Total Protein (6.3-8.2) g/dL Albumin (3.9-5) g/dL 09/03/20 09/03/20 09/03/20 Range/Units 04:46 04:46 15:31 WBC 4.2 L (4.5-11.0) K/mm3 RBC 3.01 L (3.65-5.03) M/mm3 Hgb 7.5 L (10.1-14.3) gm/dl Hct 24.1 L (30.3-42.9) % MCH 25 L (28-32) pg RDW 18.4 H (13.2-15.2) % Lymph % (Auto) 10.8 L (13.4-35.0) % Lymph # (Auto) 0.5 L (1.2-5.4) K/mm3 Seg Neutrophils % 83.6 H (40.0-70.0) % PT (12.2-14.9) Sec. INR (0.87-1.13) D-Dimer (0-234) ng/mlDDU Heparin Anti-Xa Level 0.14 L (0.3-0.7) U.I./ml Potassium 5.4 H (3.6-5.0) mmol/L Carbon Dioxide 17 L (22-30) mmol/L BUN 80 H (7-17) mg/dL Creatinine 6.9 H (0.6-1.2) mg/dL Glucose 193 H (65-100) mg/dL Lactic Acid (0.7-2.0) mmol/L Ferritin (10.0-200.0) ng/mL AST 201 H (5-40) units/L ALT 139 H (7-56) units/L Alkaline Phosphatase 270 H (35-129) units/L Lactate Dehydrogenase (91-180) units/L C-Reactive Protein (0.00-1.30) mg/dL Total Protein 6.1 L (6.3-8.2) g/dL Albumin 2.9 L (3.9-5) g/dL Assessment and Plan Cultures: Blood cultures 09/02/2020 Staph aureus 2 out of 4 bottles. Assessment: 65 years old female with history of end-stage renal disease on hemodialysis, hypertension, schizophrenia, previous malfunctional HD access, PermCath exchange in 2019, admitted on 09/02/2020 secondary to altered mental status, confusion and shortness of breath: #Severe sepsis: Present on admission with high fever, elevated LFTs, altered mental status; secondary to bacteremia, chest x-ray unremarkable. SARS-CoV-2 PCR negative. #Staph bacteremia: Likely secondary to PermCath infection. No obvious wounds. #End-stage renal disease: On hemodialysis via PermCath. #Transaminitis: Likely secondary to sepsis. #Elevated D-dimer: SARS-CoV-2 PCR negative. Likely reactive. VQ scan low probability for PE. #Acute encephalopathy: Likely secondary to sepsis/bacteremia Recommendations: -PermCath needs to be removed -Start vancomycin IV with PK consult -Recheck blood cultures tomorrow -Obtain transthoracic echocardiogram -Monitor LFTs -Hold off in place a new PermCath until blood cultures negative for [address] Cardenas rounding this weekend Will follow. Jolynn Walker MD Infectious Diseases [employer] In[employer] [facility] M [phone] [id number] [phone]
[2020-09-03 17:12] LABS: Hepatitis B Surface Antigen Non-Reactive (Negative); Hepatitis C Virus Antibody Non-Reactive (NonReactive)
[2020-09-03] MEDS: MIDODRINE 5 MG TAB PO SCH ×2 (20:21→20:22)
[2020-09-03] MEDS: SEVELAMER CARBONATE 800 MG TAB PO SCH (20:22)
[2020-09-03] MEDS: QUEtiapine 200 MG TAB PO SCH ×2 (20:22→23:33)
[2020-09-03] MEDS: VALPROIC ACID 250 MG/5 ML ORAL LIQD PO SCH (20:23)
[2020-09-03] MEDS: LORazepam 1 MG TAB PO SCH ×2 (20:23→23:33)
[2020-09-03] MEDS: PANTOPRAZOLE 40 MG TAB PO SCH ×2 (20:23→23:34)
[2020-09-03] MEDS: FAMOTIDINE 10 MG TAB PO SCH ×2 (20:23→23:43)
[2020-09-03] MEDS: MEMANTINE 5 MG TAB PO SCH (20:23)
[2020-09-03] MEDS: DIVALPROEX SPRINKLE 125 MG CAP PO SCH ×2 (23:33→23:38)
[2020-09-03] MEDS: HEPARIN/ 0.45% NACL DRIP 25,000 UNIT/500 ML BAG IV SCH (23:48)
[2020-09-04 06:28] LABS: Hemoglobin 7.1 gm/dl (10.1-14.3)
[2020-09-04] MEDS: MIDODRINE 5 MG TAB PO SCH ×4 (07:49→17:44)
[2020-09-04] MEDS: SEVELAMER CARBONATE 800 MG TAB PO SCH ×4 (07:50→17:44)
[2020-09-04] MEDS: DIVALPROEX SPRINKLE 125 MG CAP PO SCH (07:50)
[2020-09-04] MEDS: MEMANTINE 5 MG TAB PO SCH (09:56)
[2020-09-04] MEDS: FAMOTIDINE 10 MG TAB PO SCH (09:56)
[2020-09-04] MEDS: VALPROIC ACID 250 MG/5 ML ORAL LIQD PO SCH (09:56)
[2020-09-04] MEDS: LORazepam 1 MG TAB PO SCH ×2 (09:56→21:44)
[2020-09-04] MEDS: PANTOPRAZOLE 40 MG TAB PO SCH ×2 (09:56→21:44)
[2020-09-04] MEDS: QUEtiapine 200 MG TAB PO SCH ×2 (09:56→21:44)
--- NOTE | 2020-09-04 12:43 | Progress Note ---
Assessment and Plan Assessment and plan: 65-year-old female who is a resident of [facility] prison with history of end-stage renal disease on dialysis, hypertension, bipolar, anxiety, schizophrenia, and GERD who presents to [facility] ED via EMS with complaints of altered mental status, and difficulty breathing. Patient is unable to provide history. History is provided by medical report and review of records. Per prison staff patient's mentation was altered and displayed difficulty breathing and so she was sent to the ED for further evaluation and treatment. While in the ED patient was noted to be febrile with T-max 102.8, and hypoxic on room air. Here patient had a blood culture. Started on IV antibiotics. Was placed on oxygen supplementation. Coronavirus test ordered and was negative. 09/03. Blood culture growing staph aureus. ID on board. Patient has a permacath on the right chest through which she gets hemodialysis. Vascular surgery consulted for removal of catheter. Echocardiogram ordered to rule out endocarditis 09/04. More awake today. Has no complaints. Maintained on antibiotics. Echocardiogram pending. Vascular surgery consulted for removal of permacath. Plan Sepsis -Blood culture showed staph pruritus -Source of infection likely permacath. Vascular surgery consulted for permacath removal -Continue IV antibiotics -ID consulted Staph bacteremia Continue antibiotics Blood culture repeat sent Echocardiogram Transaminitis As result of ongoing systemic infection Continue to trend Acute metabolic encephalopathy -Resolved Elevated D-dimer V/Q showed probability of PE COVID-19 ruled out ESRD Hemodialysis as scheduled DVT prophylaxis Heparin products History Interval history: Patient seen and examined at bedside this morning Has no complaints Vascular surgery consulted for permacath removal Hospitalist Physical - Physical exam Narrative exam: VITAL SIGNS: Reviewed. GENERAL: Awake HEAD: No signs of head trauma. EYES: Pupils are equal. Extraocular motions intact. MOUTH: Oropharynx is normal. NECK: No adenopathy, no JVD. CHEST: Chest with diminished breath sounds bilaterally. No wheezes, rales, or rhonchi. CARDIAC: normal S1 and S2, without murmurs, gallops, or rubs. ABDOMEN: Soft, non tender and non distended. No rebound or guarding, and no masses palpated. Bowel Sounds normal. MUSCULOSKELETAL: Edema NEUROLOGIC EXAM: Alert and oriented x3. No focal neurologic deficits SKIN: No obvious lesions - Constitutional Vitals: Temp Pulse Resp BP Pulse Ox 97.8 F 97 H 18 89/45 97 09/04/20 04:37 09/04/20 04:37 09/04/20 04:37 09/04/20 04:37 09/04/20 04:37 HEART Score - HEART Score EKG: Normal Age: > 65 Results - Labs CBC & Chem 7: 09/04/20 05:19 09/03/20 04:46 Labs: Laboratory Last Values WBC 4.2 K/mm3 (4.5-11.0) L 09/03/20 04:46 RBC 3.01 M/mm3 (3.65-5.03) L 09/03/20 04:46 Hgb 7.1 gm/dl (10.1-14.3) L 09/04/20 05:19 Hct 22.0 % (30.3-42.9) L 09/04/20 05:19 MCV 80 fl (79-97) 09/03/20 04:46 MCH 25 pg (28-32) L 09/03/20 04:46 MCHC 31 % (30-34) 09/03/20 04:46 RDW 18.4 % (13.2-15.2) H 09/03/20 04:46 Plt Count 133 K/mm3 (140-440) L 09/04/20 05:19 Lymph % (Auto) 10.8 % (13.4-35.0) L 09/03/20 04:46 [place] % (Auto) 5.3 % (0.0-7.3) 09/03/20 04:46 Eos % (Auto) 0.0 % (0.0-4.3) 09/03/20 04:46 Baso % (Auto) 0.3 % (0.0-1.8) 09/03/20 04:46 Lymph # (Auto) 0.5 K/mm3 (1.2-5.4) L 09/03/20 04:46 [place] # (Auto) 0.2 K/mm3 (0.0-0.8) 09/03/20 04:46 Eos # (Auto) 0.0 K/mm3 (0.0-0.4) 09/03/20 04:46 Baso # (Auto) 0.0 K/mm3 (0.0-0.1) 09/03/20 04:46 Add Manual Diff Complete 09/02/20 12:42 Seg Neutrophils % 83.6 % (40.0-70.0) H 09/03/20 04:46 Seg Neutrophils # 3.5 K/mm3 (1.8-7.7) 09/03/20 04:46 PT 15.2 Sec. (12.2-14.9) H 09/02/20 20:58 INR 1.22 (0.87-1.13) H 09/02/20 20:58 APTT 34.5 Sec. (24.2-36.6) 09/02/20 20:58 D-Dimer 2836.58 ng/mlDDU (0-234) H 09/02/20 15:12 Heparin Anti-Xa Level 0.21 U.I./ml (0.3-0.7) L 09/04/20 07:56 VBG pH 7.337 (7.320-7.420) 09/02/20 12:42 Sodium 142 mmol/L (137-145) 09/03/20 04:46 Potassium 5.4 mmol/L (3.6-5.0) H 09/03/20 04:46 Chloride 104.6 mmol/L (98-107) 09/03/20 04:46 Carbon Dioxide 17 mmol/L (22-30) L 09/03/20 04:46 Anion Gap 26 mmol/L 09/03/20 04:46 BUN 80 mg/dL (7-17) H 09/03/20 04:46 Creatinine 6.9 mg/dL (0.6-1.2) H 09/03/20 04:46 Estimated GFR 7 ml/min 09/03/20 04:46 BUN/Creatinine Ratio 12 % 09/03/20 04:46 Glucose 193 mg/dL (65-100) H 09/03/20 04:46 Hemoglobin A1c 5.3 % (4-6) 09/02/20 20:58 Lactic Acid 0.60 mmol/L (0.7-2.0) L 09/02/20 15:12 Calcium 9.8 mg/dL (8.4-10.2) 09/03/20 04:46 Ferritin 3094.0 ng/mL (10.0-200.0) H 09/02/20 15:12 Total Bilirubin 0.20 mg/dL (0.1-1.2) 09/03/20 04:46 AST 201 units/L (5-40) H 09/03/20 04:46 ALT 139 units/L (7-56) H 09/03/20 04:46 Alkaline Phosphatase 270 units/L (35-129) H 09/03/20 04:46 Lactate Dehydrogenase 209 units/L (91-180) H 09/02/20 15:12 C-Reactive Protein 32.80 mg/dL (0.00-1.30) H 09/02/20 15:12 Total Protein 6.1 g/dL (6.3-8.2) L 09/03/20 04:46 Albumin 2.9 g/dL (3.9-5) L 09/03/20 04:46 Albumin/Globulin Ratio 0.9 % 09/03/20 04:46 Procalcitonin 19.18 ng/mL (<0.15) 09/02/20 15:12 Urine Color Yellow (Yellow) 09/02/20 12:25 Urine Turbidity Clear (Clear) 09/02/20 12:25 Urine pH 7.0 (5.0-7.0) 09/02/20 12:25 Ur Specific [place] 1.012 (1.003-1.030) 09/02/20 12:25 Urine Protein 100 mg/dl mg/dL (Negative) 09/02/20 12:25 Urine Glucose (UA) Neg mg/dL (Negative) 09/02/20 12:25 Urine Ketones Tr mg/dL (Negative) 09/02/20 12:25 Urine Blood Neg (Negative) 09/02/20 12:25 Urine Nitrite Neg (Negative) 09/02/20 12:25 Urine Bilirubin Neg (Negative) 09/02/20 12:25 Urine Urobilinogen 2.0 mg/dL (<2.0) 09/02/20 12:25 Ur Leukocyte Esterase Tr (Negative) 09/02/20 12:25 Urine WBC (Auto) 7.0 /HPF (0.0-6.0) H 09/02/20 12:25 Urine RBC (Auto) 1.0 /HPF (0.0-6.0) 09/02/20 12:25 U Epithel Cells (Auto) 1.0 /HPF (0-13.0) 09/02/20 12:25 Urine Mucus Few /HPF 09/02/20 12:25 Coronavirus (PCR) Negative (Negative) 09/03/20 10:00 Hepatitis A IgM Ab Non-reactive (NonReactive) 09/03/20 15:31 Hep Bs Antigen Non-reactive (Negative) 09/03/20 15:31 Hep B Core IgM Ab Non-reactive (NonReactive) 09/03/20 15:31 Hepatitis C Antibody Non-reactive (NonReactive) 09/03/20 15:31 Microbiology: Microbiology 09/02/20 12:42 Peripheral/Venous Blood Culture - Preliminary Staphylococcus Aureus 09/02/20 12:42 Peripheral/Venous Blood Culture - Preliminary Staphylococcus Aureus 09/02/20 12:25 Urine,Catheterized - Straight Catheter Urine Culture - Preliminary NO GROWTH AFTER 24 HOURS - Diagnostic Impressions Diagnostic Impressions: Echocardiogram 09/03/20 14:14 Transthoracic Echocardiogram Indication: R/O Endocarditis BP: 89/45 Conclusions *Global left ventricular systolic function is normal. *The estimated ejection fraction is 60-65%. *The left atrium is mildly dilated. *There is trace of mitral regurgitation. *There is mild aortic regurgitation. *There is trace tricuspid regurgitation. *The study quality is technically difficult. Findings Procedure Info: The study quality is technically difficult. Left Ventricle: The left ventricular chamber size is normal. There is no left ventricular hypertrophy. Global left ventricular systolic function is normal. The estimated ejection fraction is 60-65%. Left Atrium: The left atrium is mildly dilated. Right Ventricle: The right ventricular cavity size is normal. The right ventricular global systolic function is normal. Right Atrium: The right atrial cavity size is normal. Aortic Valve: The aortic valve is trileaflet. The aortic valve leaflets are mildly thickened. There is mild aortic regurgitation. There is no evidence of aortic stenosis. Mitral Valve: The mitral valve leaflets are moderately thickened. There is trace of mitral regurgitation. There is no evidence of mitral stenosis. Tricuspid Valve: There is trace tricuspid regurgitation. No pulmonary hypertension is noted. Pulmonic Valve: There is trace pulmonic regurgitation. Pericardium: There is no pericardial effusion. A pericardial fat pad is visualized. Aorta: There is no dilatation of the ascending aorta. There is no dilatation of the aortic root. Venous: The inferior vena cava is not visualized. Measurements Chambers 2D Name Value Normal Range IVSd (2D) 0.85 cm (0.6 - 1.1) LVPWd (2D) 0.85 cm (0.6 - 1.1) LVIDd (2D) 4.5 cm (3.7 - 5.6) LVIDs (2D) 3.12 cm (2 - 3.8) LV FS (2D) 30.78 % - EF Teichholz (2D) 58.5 % - Ao root diameter (2D) 2.66 cm (2 - 3.7) Volumes/Mass Name Value Normal Range LA ESV SP 4CH (A/L) 65.15 ml - LA ESV SP 2CH (A/L) 47.42 ml - LA ESV BP (A/L) 57.96 ml - LA ESV SP 4CH (MOD) 60.34 ml - LA ESV SP 2CH (MOD) 45.08 ml - LV EDV SP 4CH (MOD) 54.03 ml - LV ESV SP 4CH (MOD) 14.63 ml - EF SP 4CH (MOD) 72.93 % - LV EDV SP 2CH (MOD) 44.07 ml - LV ESV SP 2CH (MOD) 12.5 ml - EF SP 2CH (MOD) 71.63 % - LV EDV BP 48.54 ml - LV ESV BP 13.43 ml - BP EF (MOD) 72.33 % - Diastolic/Systolic Function Name Value Normal Range MV E-wave Vmax 0.7 m/sec - MV deceleration time 145.64 msec - MV A-wave Vmax 1 m/sec - MV E:A ratio 0.7 ratio - Aortic Valve Name Value Normal Range AV Vmax 1.13 m/sec - AV VTI 18 cm - AV peak gradient 5.15 mmHg - AV mean gradient 2.76 mmHg - LVOT diameter 2 cm - LVOT Vmax 1.12 m/sec - LVOT VTI 20.27 cm - LVOT peak gradient 5.02 mmHg - LVOT mean gradient 2.05 mmHg - SV LVOT 63.77 ml - ZAIRA (continuity Vmax) 3.11 cm2 - ZAIRA (continuity VTI) 3.54 cm2 - AR PHT 506.95 msec - AR peak gradient 29.25 mmHg - Tricuspid Valve Name Value Normal Range TV E-wave Vmax 0.65 m/sec - Pulmonic Valve/Qp:Qs Name Value Normal Range PV Vmax 0.81 m/sec - PV peak gradient 2.65 mmHg - RVOT Vmax 0.66 m/sec - RVOT VTI 11.49 cm - RVOT peak gradient 1.74 mmHg - PV acceleration time 114.18 msec - Cleary/IV: Voiding Method Incontinent IV Catheter Type [Right INT / Saline Lock Subclavian] Active Medications - Current Medications Current Medications: Generic Name Dose Route Start Last Admin Trade Name Freq PRN Reason Stop Dose Admin Acetaminophen 650 mg 09/02/20 19:55 09/03/20 23:53 Acetaminophen 325 Mg Tab PO 650 mg Q4H PRN Administration Pain MILD(1-3)/Fever >100.5/DRAKE Hydrocodone Bitart/Acetaminophen 1 each 09/02/20 19:55 Hydrocodone/Acetaminophen 5-325 Mg Tab PO Q6H PRN Pain, Moderate (4-6) Divalproex Sodium 250 mg 09/04/20 17:[address] 250 Mg Tab PO DAILY@1700 [facility] Divalproex Sodium 1,500 mg 09/04/20 22:[address] 500 Mg Tab PO QHS [facility] Famotidine 10 mg 09/02/20 22:00 09/04/20 09:56 Famotidine 10 Mg Tab PO 10 mg BID [facility] Administration Heparin Sodium (Porcine) 2,400 unit 09/02/20 20:23 Heparin 10,000 Units/10 Ml Vial 40 unit/kg (2400 unit) IV Q6H PRN Anti-Xa Assay < 0.1 units/ml Hydromorphone HCl 0.5 mg 09/02/20 19:59 Hydromorphone 1 Mg/1 Ml Inj IV Q3H PRN Pain , Severe (7-10) Sodium Chloride 100 mls @ 999 mls/hr 09/03/20 11:55 Nacl 0.9% IV BIANCA PRN Hypotension Lorazepam 1 mg 09/02/20 22:00 09/04/20 09:56 Lorazepam 1 Mg Tab PO 1 mg BID [facility] Administration Memantine 5 mg 09/03/20 10:00 09/04/20 09:56 Memantine 5 Mg Tab PO 5 mg QDAY [facility] Administration Midodrine 10 mg 09/02/20 20:00 09/04/20 08:13 Midodrine 5 Mg Tab PO 10 mg TID@0800,1200,1600 [facility] Administration Ondansetron HCl 4 mg 09/02/20 19:59 Ondansetron 4 Mg/2 Ml Inj IV Q8H PRN Nausea And Vomiting Pantoprazole Sodium 40 mg 09/02/20 22:00 09/04/20 09:56 Pantoprazole 40 Mg Tab PO 40 mg BID [facility] Administration Quetiapine Fumarate 400 mg 09/02/20 22:00 09/04/20 09:56 Quetiapine 200 Mg Tab PO 400 mg BID [facility] Administration Sevelamer Carbonate 800 mg 09/03/20 08:00 09/04/20 08:13 Sevelamer Carbonate 800 Mg Tab PO 800 mg TIDWM [facility] Administration Sodium Chloride 10 ml 09/02/20 22:00 09/04/20 09:57 Sodium Chloride 0.9% 10 Ml Flush Syringe IV 10 ml BID [facility] Administration Sodium Chloride 10 ml 09/02/20 19:59 Sodium Chloride 0.9% 10 Ml Flush Syringe IV PRN PRN LINE FLUSH Valproic Acid 500 mg 09/03/20 10:00 09/04/20 09:56 Valproic Acid 250 Mg/5 Ml Oral Liqd PO 500 mg DAILY [facility] Administration
--- NOTE | 2020-09-04 14:26 | Consultation ---
History of Present Illness - Reason for Consult Consult date: 09/04/20 Infected catheter Requesting physician: ODNNIE MASCORRO - History of Present Illness 65-year-old woman, a long-term resident, with end-stage renal disease on dialysis, hypertension, psyciatric illness and GERD who presented with altered mental status, and shortness of breath. While in the ED patient was noted to be febrile with T-max 102.8, and hypoxic on room air. Nephrology was consulted for end-stage renal disease management. Vascular consulted after blood cultures positive for staph aureus. Patient had drainage from the right internal jugular PermCath exit site and has pain along the catheter tract consistent with tunnel infection. Patient also has bacteremia. This site is not salvageable given the tunnel infection. Catheter removed at bedside. Past History Past Medical History: diabetes, ESRD, GERD, hypertension, other (Bipolar, schizophrenia, dysphagia, cognitive communication deficit, anxiety, chronic anemia, seizures, generalized weakness ) Past Surgical History: hysterectomy, Other (Right chest permacath, SHAYY AV fistula ) Social history: other (long-term resident ([place])) Family history: no significant family history Medications and Allergies Allergies Allergy/AdvReac Type Severity Reaction Status Date / Time Penicillins Allergy Rash Verified 03/15/20 07:07 corn AdvReac Unknown Verified 03/15/20 07:07 Home Medications Medication Instructions Recorded Confirmed Last Taken Type Acetaminophen [Acetaminophen TAB] 650 mg PO Q4H PRN tablet 06/03/19 09/02/20 09/02/20 Rx LORazepam [Ativan] 1 mg PO BID 08/20/19 09/02/20 03/28/20 17:00 History Memantine Xr [Namenda Xr] 5 mg PO DAILY 08/20/19 09/02/20 03/28/20 09:00 History Midodrine [Proamatine] 10 mg PO TID 08/20/19 09/02/20 03/28/20 17:00 History QUEtiapine [SEROquel] 400 mg PO BID 08/20/19 09/02/20 03/28/20 20:00 History Pantoprazole [Protonix TAB] 40 mg PO BID tablet 10/12/19 09/02/20 03/28/20 17:00 Rx HYDROcodone/APAP 5-325 [[place] 1 each PO Q6H PRN #24 tablet 03/29/20 09/02/20 Unknown Rx 5-325 mg TAB] Divalproex Sprinkle 1,500 mg PO QHS 09/02/20 09/02/20 Unknown History Divalproex Sprinkle [DepaKOTE 250 mg PO ONCE 09/02/20 09/02/20 Unknown History SPRINKLE] Sevelamer Carbonate [Renvela] 0.8 gram PO TIDWM 09/02/20 09/02/20 Unknown History VALPROIC ACID Liq [DepaKENE Liq] 500 mg PO DAILY 09/02/20 09/02/20 Unknown History Active Meds: Active Medications Acetaminophen (Acetaminophen 325 Mg Tab) 650 mg PO Q4H PRN PRN Reason: Pain MILD(1-3)/Fever >100.5/DRAKE Last Admin: 09/03/20 23:53 Dose: 650 mg Documented by: Hydrocodone Bitart/Acetaminophen (Hydrocodone/Acetaminophen 5-325 Mg Tab) 1 each PO Q6H PRN PRN Reason: Pain, Moderate (4-6) Divalproex Sodium (Divalproex Dr 250 Mg Tab) 250 mg PO DAILY@1700 [facility] Divalproex Sodium (Divalproex Dr 500 Mg Tab) 1,500 mg PO QHS [facility] Famotidine (Famotidine 10 Mg Tab) 10 mg PO BID [facility] Last Admin: 09/04/20 09:56 Dose: 10 mg Documented by: Heparin Sodium (Porcine) (Heparin 10,000 Units/10 Ml Vial) 2,400 unit 40 unit/kg (2400 unit) IV Q6H PRN PRN Reason: Anti-Xa Assay < 0.1 units/ml Hydromorphone HCl (Hydromorphone 1 Mg/1 Ml Inj) 0.5 mg IV Q3H PRN PRN Reason: Pain , Severe (7-10) Sodium Chloride (Nacl 0.9%) 100 mls @ 999 mls/hr IV BIANCA PRN PRN Reason: Hypotension Lorazepam (Lorazepam 1 Mg Tab) 1 mg PO BID [facility] Last Admin: 09/04/20 09:56 Dose: 1 mg Documented by: Memantine (Memantine 5 Mg Tab) 5 mg PO QDAY [facility] Last Admin: 09/04/20 09:56 Dose: 5 mg Documented by: Midodrine (Midodrine 5 Mg Tab) 10 mg PO TID@0800,1200,1600 [facility] Last Admin: 09/04/20 13:36 Dose: 10 mg Documented by: Ondansetron HCl (Ondansetron 4 Mg/2 Ml Inj) 4 mg IV Q8H PRN PRN Reason: Nausea And Vomiting Pantoprazole Sodium (Pantoprazole 40 Mg Tab) 40 mg PO BID [facility] Last Admin: 09/04/20 09:56 Dose: 40 mg Documented by: Quetiapine Fumarate (Quetiapine 200 Mg Tab) 400 mg PO BID [facility] Last Admin: 09/04/20 09:56 Dose: 400 mg Documented by: Sevelamer Carbonate (Sevelamer Carbonate 800 Mg Tab) 800 mg PO TIDWM [facility] Last Admin: 09/04/20 13:36 Dose: 800 mg Documented by: Sodium Chloride (Sodium Chloride 0.9% 10 Ml Flush Syringe) 10 ml IV BID [facility] Last Admin: 09/04/20 09:57 Dose: 10 ml Documented by: Sodium Chloride (Sodium Chloride 0.9% 10 Ml Flush Syringe) 10 ml IV PRN PRN PRN Reason: LINE FLUSH Valproic Acid (Valproic Acid 250 Mg/5 Ml Oral Liqd) 500 mg PO DAILY [facility] Last Admin: 09/04/20 09:56 Dose: 500 mg Documented by: Review of Systems ROS unobtainable: due to mental status Exam - Constitutional Vitals: Temp Pulse Resp BP Pulse Ox 97.4 F L 106 H 18 93/32 96 09/04/20 12:48 09/04/20 12:48 09/04/20 12:48 09/04/20 12:48 09/04/20 12:48 General appearance: Present: mild distress (Right neck pain) - EENT Eyes: Present: EOM intact ENT: hearing intact - Respiratory Respiratory effort: labored - Abdominal General gastrointestinal: Present: soft, non-tender - Psychiatric Psychiatric: no appropriate mood/affect, no intact judgment & insight, other (Confused) Results - Labs CBC & Chem 7: 09/04/20 05:19 09/03/20 04:46 Labs: Abnormal lab results 09/03/20 09/04/20 09/04/20 Range/Units 15:31 05:19 07:56 Hgb 7.1 L (10.1-14.3) gm/dl Hct 22.0 L (30.3-42.9) % Plt Count 133 L (140-440) K/mm3 Heparin Anti-Xa Level 0.14 L 0.21 L (0.3-0.7) U.I./ml Assessment and Plan 65-year-old female presents to the hospital with tunnel infection and bacteremia with right internal jugular PermCath drainage. Given tunnel infection and altered mental status and staph aureus bacteremia, catheters removed at bedside. Once patient afebrile for 48 hours, and blood cultures negative for 48 hours, new PermCath can be placed. New set of blood cultures ordered.
--- NOTE | 2020-09-04 14:26 | Operative Report ---
Operative Report Operative Report: EXAM: Tunneled catheter removal DATE: 09/04/2020 INDICATION: Bacteremia with tunnel infection of right internal jugular PermCath. MEDICATIONS: Please see nursing report for full details. CMM OPERATOR: LEONORA HINOJOSA MD CONTRAST: None PROCEDURE: The risks, benefits, and alternatives were discussed. The patient was positioned with the head towards the contralateral side. The tunneled catheter was prepped and draped in a sterile fashion. Heparin was withdrawn from both lumens. Using a hemostat, blunt dissection was performed and the cuff was extracted. The catheter was extracted and pressure was held at the venotomy and dermatotomy site until hemostasis was achieved. Sterile bandage was then applied. The patient tolerated the procedure without issue. FINDINGS: Successful removal of the tunneled catheter. IMPRESSION: Successful removal of the right internal jugular tunneled catheter.
--- NOTE | 2020-09-04 15:37 | Progress Note ---
Assessment and Plan Impression: * End stage renal disease * Sepsis * Catheter associated bacteremia --Blood cx: MRSA (Sep 02) --Permcath removal (Sep 04) * Acute encephalopathy * Anemia secondary to ESRD * Secondary hyperparathyroidism * Schizophrenia Plan: * Patient is s/p HD yesterday. No acute need for HD today * Resume HD pending reinsertion of permcath * Medical management of electrolytes * Abx per ID * Dose medications for renal function * Epogen TIW prn * Renal diet Subjective Date of service: 09/04/20 Interval history: Patient has no complaints today Objective - Vital Signs Vital signs: Vital Signs - 12hr 09/04/20 09/04/20 04:37 12:48 Temperature 97.8 F 97.4 F L Pulse Rate 97 H 106 H Respiratory 18 18 Rate Blood Pressure 89/45 93/32 O2 Sat by Pulse 97 96 Oximetry - General Appearance General appearance: well-developed, well-nourished EENT: ATNC Respiratory: Present: Clear to Ascultation Cardiology: regular, S1S2 Gastrointestinal: normal, no tenderness, no distended Integumentary: no rash, warm and dry Psychiatric: cooperative - Lab 09/04/20 05:19 09/03/20 04:46 Most recent lab results Calcium 9.8 mg/dL (8.4-10.2) 09/03/20 04:46 Medications & Allergies - Medications Allergies/Adverse Reactions: Allergies Penicillins Allergy (Verified 03/15/20 07:07) Rash corn Adverse Reaction (Verified 03/15/20 07:07) Unknown Home Medications: Home Medications Medication Instructions Recorded Confirmed Last Taken Type Acetaminophen [Acetaminophen TAB] 650 mg PO Q4H PRN tablet 06/03/19 09/02/20 09/02/20 Rx LORazepam [Ativan] 1 mg PO BID 08/20/19 09/02/20 03/28/20 17:00 History Memantine Xr [Namenda Xr] 5 mg PO DAILY 08/20/19 09/02/20 03/28/20 09:00 History Midodrine [Proamatine] 10 mg PO TID 08/20/19 09/02/20 03/28/20 17:00 History QUEtiapine [SEROquel] 400 mg PO BID 08/20/19 09/02/20 03/28/20 20:00 History Pantoprazole [Protonix TAB] 40 mg PO BID tablet 10/12/19 09/02/20 03/28/20 17:00 Rx HYDROcodone/APAP 5-325 [[place] 1 each PO Q6H PRN #24 tablet 03/29/20 09/02/20 Unknown Rx 5-325 mg TAB] Divalproex Sprinkle 1,500 mg PO QHS 09/02/20 09/02/20 Unknown History Divalproex Sprinkle [DepaKOTE 250 mg PO ONCE 09/02/20 09/02/20 Unknown History SPRINKLE] Sevelamer Carbonate [Renvela] 0.8 gram PO TIDWM 09/02/20 09/02/20 Unknown History VALPROIC ACID Liq [DepaKENE Liq] 500 mg PO DAILY 09/02/20 09/02/20 Unknown History Active Medications: Generic Name Dose Route Start Last Admin Trade Name Freq PRN Reason Stop Dose Admin Acetaminophen 650 mg 09/02/20 19:55 09/03/20 23:53 Acetaminophen 325 Mg Tab PO 650 mg Q4H PRN Administration Pain MILD(1-3)/Fever >100.5/DRAKE Hydrocodone Bitart/Acetaminophen 1 each 09/02/20 19:55 Hydrocodone/Acetaminophen 5-325 Mg Tab PO Q6H PRN Pain, Moderate (4-6) Divalproex Sodium 250 mg 09/04/20 17:[address] 250 Mg Tab PO DAILY@1700 [facility] Divalproex Sodium 1,500 mg 09/04/20 22:[address] 500 Mg Tab PO QHS [facility] Famotidine 10 mg 09/02/20 22:00 09/04/20 09:56 Famotidine 10 Mg Tab PO 10 mg BID [facility] Administration Heparin Sodium (Porcine) 2,400 unit 09/02/20 20:23 Heparin 10,000 Units/10 Ml Vial 40 unit/kg (2400 unit) IV Q6H PRN Anti-Xa Assay < 0.1 units/ml Hydromorphone HCl 0.5 mg 09/02/20 19:59 Hydromorphone 1 Mg/1 Ml Inj IV Q3H PRN Pain , Severe (7-10) Sodium Chloride 100 mls @ 999 mls/hr 09/03/20 11:55 Nacl 0.9% IV BIANCA PRN Hypotension Lorazepam 1 mg 09/02/20 22:00 09/04/20 09:56 Lorazepam 1 Mg Tab PO 1 mg BID [facility] Administration Memantine 5 mg 09/03/20 10:00 09/04/20 09:56 Memantine 5 Mg Tab PO 5 mg QDAY [facility] Administration Midodrine 10 mg 09/02/20 20:00 09/04/20 13:36 Midodrine 5 Mg Tab PO 10 mg TID@0800,1200,1600 [facility] Administration Ondansetron HCl 4 mg 09/02/20 19:59 Ondansetron 4 Mg/2 Ml Inj IV Q8H PRN Nausea And Vomiting Pantoprazole Sodium 40 mg 09/02/20 22:00 09/04/20 09:56 Pantoprazole 40 Mg Tab PO 40 mg BID [facility] Administration Quetiapine Fumarate 400 mg 09/02/20 22:00 09/04/20 09:56 Quetiapine 200 Mg Tab PO 400 mg BID [facility] Administration Sevelamer Carbonate 800 mg 09/03/20 08:00 09/04/20 13:36 Sevelamer Carbonate 800 Mg Tab PO 800 mg TIDWM [facility] Administration Sodium Chloride 10 ml 09/02/20 22:00 09/04/20 09:57 Sodium Chloride 0.9% 10 Ml Flush Syringe IV 10 ml BID [facility] Administration Sodium Chloride 10 ml 09/02/20 19:59 Sodium Chloride 0.9% 10 Ml Flush Syringe IV PRN PRN LINE FLUSH Valproic Acid 500 mg 09/03/20 10:00 09/04/20 09:56 Valproic Acid 250 Mg/5 Ml Oral Liqd PO 500 mg DAILY [facility] Administration
[2020-09-04] MEDS: DIVALPROEX DR 250 MG TAB PO SCH (17:44)
[2020-09-04] MEDS: DIVALPROEX DR 500 MG TAB PO SCH (21:44)
[2020-09-04] MEDS: SODIUM BICARBONATE 650 MG TAB PO SCH (21:44)
[2020-09-05] MEDS: SODIUM BICARBONATE 650 MG TAB PO SCH ×3 (08:59→20:14)
[2020-09-05] MEDS: SEVELAMER CARBONATE 800 MG TAB PO SCH ×3 (08:59→17:22)
[2020-09-05] MEDS: LORazepam 1 MG TAB PO SCH ×3 (09:00→22:14)
[2020-09-05] MEDS: MEMANTINE 5 MG TAB PO SCH (09:00)
[2020-09-05] MEDS: VALPROIC ACID 250 MG/5 ML ORAL LIQD PO SCH (09:00)
[2020-09-05] MEDS: PANTOPRAZOLE 40 MG TAB PO SCH ×2 (09:01→22:15)
[2020-09-05] MEDS: QUEtiapine 200 MG TAB PO SCH ×2 (09:17→22:14)
[2020-09-05] MEDS: MIDODRINE 5 MG TAB PO SCH ×3 (09:18→17:24)
--- NOTE | 2020-09-05 11:45 | Progress Note ---
Assessment and Plan Assessment and plan: 65-year-old female who is a resident of [facility] [place] skilled nursing with history of end-stage renal disease on dialysis, hypertension, bipolar, anxiety, schizophrenia, and GERD who presents to [facility] ED via EMS with complaints of altered mental status, and difficulty breathing. Patient is unable to provide history. History is provided by medical report and review of records. Per skilled nursing staff patient's mentation was altered and displayed difficulty breathing and so she was sent to the ED for further evaluation and treatment. While in the ED patient was noted to be febrile with T-max 102.8, and hypoxic on room air. Here patient had a blood culture. Started on IV antibiotics. Was placed on oxygen supplementation. Coronavirus test ordered and was negative. 09/03. Blood culture growing staph aureus. ID on board. Patient has a permacath on the right chest through which she gets hemodialysis. Vascular surgery consulted for removal of catheter. Echocardiogram ordered to rule out endocarditis 09/04. More awake today. Has no complaints. Maintained on antibiotics. Echocardiogram pending. Vascular surgery consulted for removal of permacath. 09/05. Febrile overnight. Catheter removed by vascular. On IV vancomycin. ID following. BC 09/04 remains NTD. Plan for placement of catheter per vascular and ID. Plan Sepsis -Blood culture showed staph aureus. -Repeat BC 09/04 - NTD -Source of infection likely permacath. Vascular surgery consulted for permacath removal and this has been removed. -Continue IV antibiotics -ID recs appreciated Staph bacteremia Continue antibiotics Blood culture repeat sent on 09/04. Echocardiogram pending. Transaminitis As result of ongoing systemic infection Continue to trend Acute metabolic encephalopathy -Resolved Elevated D-dimer V/Q showed probability of PE COVID-19 ruled out ESRD Hemodialysis as scheduled Plan for catheter placement is blood culture is negative for 48 hours. Vascular and nephrology on board. DVT prophylaxis Heparin products History Interval history: Patient seen and examined at bedside this morning Has no complaints Tunneled catheter removed. Febrile overnight Hospitalist Physical - Physical exam Narrative exam: VITAL SIGNS: Reviewed. GENERAL: Awake HEAD: No signs of head trauma. EYES: Pupils are equal. Extraocular motions intact. MOUTH: Oropharynx is normal. NECK: No adenopathy, no JVD. CHEST: Chest with diminished breath sounds bilaterally. No wheezes, rales, or rhonchi. CARDIAC: normal S1 and S2, without murmurs, gallops, or rubs. ABDOMEN: Soft, non tender and non distended. No rebound or guarding, and no masses palpated. Bowel Sounds normal. MUSCULOSKELETAL: Edema NEUROLOGIC EXAM: Alert and oriented x3. No focal neurologic deficits SKIN: No obvious lesions - Constitutional Vitals: Temp Pulse Resp BP Pulse Ox 97.6 F 107 H 20 102/52 95 09/05/20 04:02 09/05/20 04:37 09/05/20 04:02 09/05/20 04:47 09/05/20 10:00 HEART Score - HEART Score EKG: Normal Age: > 65 Results - Labs CBC & Chem 7: 09/04/20 05:19 09/03/20 04:46 Labs: Laboratory Last Values WBC 4.2 K/mm3 (4.5-11.0) L 09/03/20 04:46 RBC 3.01 M/mm3 (3.65-5.03) L 09/03/20 04:46 Hgb 7.1 gm/dl (10.1-14.3) L 09/04/20 05:19 Hct 22.0 % (30.3-42.9) L 09/04/20 05:19 MCV 80 fl (79-97) 09/03/20 04:46 MCH 25 pg (28-32) L 09/03/20 04:46 MCHC 31 % (30-34) 09/03/20 04:46 RDW 18.4 % (13.2-15.2) H 09/03/20 04:46 Plt Count 133 K/mm3 (140-440) L 09/04/20 05:19 Lymph % (Auto) 10.8 % (13.4-35.0) L 09/03/20 04:46 Hardy % (Auto) 5.3 % (0.0-7.3) 09/03/20 04:46 Eos % (Auto) 0.0 % (0.0-4.3) 09/03/20 04:46 Baso % (Auto) 0.3 % (0.0-1.8) 09/03/20 04:46 Lymph # (Auto) 0.5 K/mm3 (1.2-5.4) L 09/03/20 04:46 Hardy # (Auto) 0.2 K/mm3 (0.0-0.8) 09/03/20 04:46 Eos # (Auto) 0.0 K/mm3 (0.0-0.4) 09/03/20 04:46 Baso # (Auto) 0.0 K/mm3 (0.0-0.1) 09/03/20 04:46 Add Manual Diff Complete 09/02/20 12:42 Seg Neutrophils % 83.6 % (40.0-70.0) H 09/03/20 04:46 Seg Neutrophils # 3.5 K/mm3 (1.8-7.7) 09/03/20 04:46 PT 15.2 Sec. (12.2-14.9) H 09/02/20 20:58 INR 1.22 (0.87-1.13) H 09/02/20 20:58 APTT 34.5 Sec. (24.2-36.6) 09/02/20 20:58 D-Dimer 2836.58 ng/mlDDU (0-234) H 09/02/20 15:12 Heparin Anti-Xa Level 0.21 U.I./ml (0.3-0.7) L 09/04/20 07:56 VBG pH 7.337 (7.320-7.420) 09/02/20 12:42 Sodium 142 mmol/L (137-145) 09/03/20 04:46 Potassium 5.4 mmol/L (3.6-5.0) H 09/03/20 04:46 Chloride 104.6 mmol/L (98-107) 09/03/20 04:46 Carbon Dioxide 17 mmol/L (22-30) L 09/03/20 04:46 Anion Gap 26 mmol/L 09/03/20 04:46 BUN 80 mg/dL (7-17) H 09/03/20 04:46 Creatinine 6.9 mg/dL (0.6-1.2) H 09/03/20 04:46 Estimated GFR 7 ml/min 09/03/20 04:46 BUN/Creatinine Ratio 12 % 09/03/20 04:46 Glucose 193 mg/dL (65-100) H 09/03/20 04:46 Hemoglobin A1c 5.3 % (4-6) 09/02/20 20:58 Lactic Acid 0.60 mmol/L (0.7-2.0) L 09/02/20 15:12 Calcium 9.8 mg/dL (8.4-10.2) 09/03/20 04:46 Ferritin 3094.0 ng/mL (10.0-200.0) H 09/02/20 15:12 Total Bilirubin 0.20 mg/dL (0.1-1.2) 09/03/20 04:46 AST 201 units/L (5-40) H 09/03/20 04:46 ALT 139 units/L (7-56) H 09/03/20 04:46 Alkaline Phosphatase 270 units/L (35-129) H 09/03/20 04:46 Lactate Dehydrogenase 209 units/L (91-180) H 09/02/20 15:12 C-Reactive Protein 32.80 mg/dL (0.00-1.30) H 09/02/20 15:12 Total Protein 6.1 g/dL (6.3-8.2) L 09/03/20 04:46 Albumin 2.9 g/dL (3.9-5) L 09/03/20 04:46 Albumin/Globulin Ratio 0.9 % 09/03/20 04:46 Procalcitonin 19.18 ng/mL (<0.15) 09/02/20 15:12 Urine Color Yellow (Yellow) 09/02/20 12:25 Urine Turbidity Clear (Clear) 09/02/20 12:25 Urine pH 7.0 (5.0-7.0) 09/02/20 12:25 Ur Specific [place] 1.012 (1.003-1.030) 09/02/20 12:25 Urine Protein 100 mg/dl mg/dL (Negative) 09/02/20 12:25 Urine Glucose (UA) Neg mg/dL (Negative) 09/02/20 12:25 Urine Ketones Tr mg/dL (Negative) 09/02/20 12:25 Urine Blood Neg (Negative) 09/02/20 12:25 Urine Nitrite Neg (Negative) 09/02/20 12:25 Urine Bilirubin Neg (Negative) 09/02/20 12:25 Urine Urobilinogen 2.0 mg/dL (<2.0) 09/02/20 12:25 Ur Leukocyte Esterase Tr (Negative) 09/02/20 12:25 Urine WBC (Auto) 7.0 /HPF (0.0-6.0) H 09/02/20 12:25 Urine RBC (Auto) 1.0 /HPF (0.0-6.0) 09/02/20 12:25 U Epithel Cells (Auto) 1.0 /HPF (0-13.0) 09/02/20 12:25 Urine Mucus Few /HPF 09/02/20 12:25 Coronavirus (PCR) Negative (Negative) 09/03/20 10:00 Hepatitis A IgM Ab Non-reactive (NonReactive) 09/03/20 15:31 Hep Bs Antigen Non-reactive (Negative) 09/03/20 15:31 Hep B Core IgM Ab Non-reactive (NonReactive) 09/03/20 15:31 Hepatitis C Antibody Non-reactive (NonReactive) 09/03/20 15:31 Microbiology: Microbiology 09/04/20 14:51 Peripheral/Venous Blood Culture - Preliminary 09/04/20 14:51 Peripheral/Venous Blood Culture - Preliminary 09/02/20 12:25 Urine,Catheterized - Straight Catheter Urine Culture - Final NO GROWTH AFTER 48 HOURS 09/02/20 12:42 Peripheral/Venous Blood Culture - Preliminary Methicillin Resist S. Aureus 09/02/20 12:42 Peripheral/Venous Blood Culture - Preliminary Methicillin Resist S. Aureus - Diagnostic Impressions Diagnostic Impressions: Echocardiogram 09/03/20 14:14 Transthoracic Echocardiogram Indication: R/O Endocarditis BP: 89/45 Conclusions *Global left ventricular systolic function is normal. *The estimated ejection fraction is 60-65%. *The left atrium is mildly dilated. *There is trace of mitral regurgitation. *There is mild aortic regurgitation. *There is trace tricuspid regurgitation. *The study quality is technically difficult. Findings Procedure Info: The study quality is technically difficult. Left Ventricle: The left ventricular chamber size is normal. There is no left ventricular hypertrophy. Global left ventricular systolic function is normal. The estimated ejection fraction is 60-65%. Left Atrium: The left atrium is mildly dilated. Right Ventricle: The right ventricular cavity size is normal. The right ventricular global systolic function is normal. Right Atrium: The right atrial cavity size is normal. Aortic Valve: The aortic valve is trileaflet. The aortic valve leaflets are mildly thickened. There is mild aortic regurgitation. There is no evidence of aortic stenosis. Mitral Valve: The mitral valve leaflets are moderately thickened. There is trace of mitral regurgitation. There is no evidence of mitral stenosis. Tricuspid Valve: There is trace tricuspid regurgitation. No pulmonary hypertension is noted. Pulmonic Valve: There is trace pulmonic regurgitation. Pericardium: There is no pericardial effusion. A pericardial fat pad is visualized. Aorta: There is no dilatation of the ascending aorta. There is no dilatation of the aortic root. Venous: The inferior vena cava is not visualized. Measurements Chambers 2D Name Value Normal Range IVSd (2D) 0.85 cm (0.6 - 1.1) LVPWd (2D) 0.85 cm (0.6 - 1.1) LVIDd (2D) 4.5 cm (3.7 - 5.6) LVIDs (2D) 3.12 cm (2 - 3.8) LV FS (2D) 30.78 % - EF Teichholz (2D) 58.5 % - Ao root diameter (2D) 2.66 cm (2 - 3.7) Volumes/Mass Name Value Normal Range LA ESV SP 4CH (A/L) 65.15 ml - LA ESV SP 2CH (A/L) 47.42 ml - LA ESV BP (A/L) 57.96 ml - LA ESV SP 4CH (MOD) 60.34 ml - LA ESV SP 2CH (MOD) 45.08 ml - LV EDV SP 4CH (MOD) 54.03 ml - LV ESV SP 4CH (MOD) 14.63 ml - EF SP 4CH (MOD) 72.93 % - LV EDV SP 2CH (MOD) 44.07 ml - LV ESV SP 2CH (MOD) 12.5 ml - EF SP 2CH (MOD) 71.63 % - LV EDV BP 48.54 ml - LV ESV BP 13.43 ml - BP EF (MOD) 72.33 % - Diastolic/Systolic Function Name Value Normal Range MV E-wave Vmax 0.7 m/sec - MV deceleration time 145.64 msec - MV A-wave Vmax 1 m/sec - MV E:A ratio 0.7 ratio - Aortic Valve Name Value Normal Range AV Vmax 1.13 m/sec - AV VTI 18 cm - AV peak gradient 5.15 mmHg - AV mean gradient 2.76 mmHg - LVOT diameter 2 cm - LVOT Vmax 1.12 m/sec - LVOT VTI 20.27 cm - LVOT peak gradient 5.02 mmHg - LVOT mean gradient 2.05 mmHg - SV LVOT 63.77 ml - ZAIRA (continuity Vmax) 3.11 cm2 - ZAIRA (continuity VTI) 3.54 cm2 - AR PHT 506.95 msec - AR peak gradient 29.25 mmHg - Tricuspid Valve Name Value Normal Range TV E-wave Vmax 0.65 m/sec - Pulmonic Valve/Qp:Qs Name Value Normal Range PV Vmax 0.81 m/sec - PV peak gradient 2.65 mmHg - RVOT Vmax 0.66 m/sec - RVOT VTI 11.49 cm - RVOT peak gradient 1.74 mmHg - PV acceleration time 114.18 msec - Cleary/IV: Voiding Method Incontinent IV Catheter Type [Right VAS Cath Subclavian] Active Medications - Current Medications Current Medications: Generic Name Dose Route Start Last Admin Trade Name Freq PRN Reason Stop Dose Admin Acetaminophen 650 mg 09/02/20 19:55 09/03/20 23:53 Acetaminophen 325 Mg Tab PO 650 mg Q4H PRN Administration Pain MILD(1-3)/Fever >100.5/DRAKE Hydrocodone Bitart/Acetaminophen 1 each 09/02/20 19:55 Hydrocodone/Acetaminophen 5-325 Mg Tab PO Q6H PRN Pain, Moderate (4-6) Divalproex Sodium 250 mg 09/04/20 17:00 09/04/20 17:[address] 250 Mg Tab PO 250 mg DAILY@1700 CONNOR Administration Divalproex Sodium 1,500 mg 09/04/20 22:00 09/04/20 21:[address] 500 Mg Tab PO 1,500 mg QHS CONNOR Administration Heparin Sodium (Porcine) 2,400 unit 09/02/20 20:23 Heparin 10,000 Units/10 Ml Vial 40 unit/kg (2400 unit) IV Q6H PRN Anti-Xa Assay < 0.1 units/ml Hydromorphone HCl 0.5 mg 09/02/20 19:59 Hydromorphone 1 Mg/1 Ml Inj IV Q3H PRN Pain , Severe (7-10) Sodium Chloride 100 mls @ 999 mls/hr 09/03/20 11:55 Nacl 0.9% IV BIANCA PRN Hypotension Lorazepam 1 mg 09/02/20 22:00 09/05/20 09:00 Lorazepam 1 Mg Tab PO 1 mg BID CONNOR Administration Memantine 5 mg 09/03/20 10:00 09/05/20 09:00 Memantine 5 Mg Tab PO 5 mg QDAY CONNOR Administration Midodrine 10 mg 09/02/20 20:00 09/05/20 09:18 Midodrine 5 Mg Tab PO 10 mg TID@0800,1200,1600 CONNOR Administration Ondansetron HCl 4 mg 09/02/20 19:59 Ondansetron 4 Mg/2 Ml Inj IV Q8H PRN Nausea And Vomiting Pantoprazole Sodium 40 mg 09/02/20 22:00 09/05/20 09:01 Pantoprazole 40 Mg Tab PO 40 mg BID CONNOR Administration Quetiapine Fumarate 400 mg 09/02/20 22:00 09/05/20 09:17 Quetiapine 200 Mg Tab PO 400 mg BID CONNOR Administration Sevelamer Carbonate 800 mg 09/03/20 08:00 09/05/20 08:59 Sevelamer Carbonate 800 Mg Tab PO 800 mg TIDWM CONNOR Administration Sodium Bicarbonate 1,300 mg 09/04/20 20:00 09/05/20 08:59 Sodium Bicarbonate 650 Mg Tab PO 1,300 mg TID CONNOR Administration Sodium Chloride 10 ml 09/02/20 22:00 09/05/20 09:02 Sodium Chloride 0.9% 10 Ml Flush Syringe IV 10 ml BID CONNOR Administration Sodium Chloride 10 ml 09/02/20 19:59 Sodium Chloride 0.9% 10 Ml Flush Syringe IV PRN PRN LINE FLUSH Valproic Acid 500 mg 09/03/20 10:00 09/05/20 09:00 Valproic Acid 250 Mg/5 Ml Oral Liqd PO 500 mg DAILY CONNOR Administration
--- NOTE | 2020-09-05 12:29 | Progress Note ---
Assessment and Plan Impression: * End stage renal disease * Sepsis * Catheter associated bacteremia --Blood cx: MRSA (Sep 02), pending (Sep 04) --Permcath removal (Sep 04) * Acute encephalopathy * Anemia secondary to ESRD * Secondary hyperparathyroidism * Schizophrenia Plan: * Patient is s/p HD on Sunday. No acute need for HD today * Resume HD pending reinsertion of permcath * Surveillance cultures are pending * Abx per ID * Medical management of electrolytes * Dose medications for renal function * Epogen TIW prn * Renal diet Subjective Date of service: 09/05/20 Interval history: Patient remains afebrile for >24hours. She has no complaints today. Objective - Vital Signs Vital signs: Vital Signs - 12hr 09/05/20 09/05/20 09/05/20 04:02 04:37 04:47 Temperature 97.6 F Pulse Rate 108 H 107 H Respiratory 20 Rate Blood Pressure 81/43 Blood Pressure 102/52 [Right] O2 Sat by Pulse 94 95 Oximetry 09/05/20 10:00 Temperature Pulse Rate Respiratory Rate Blood Pressure Blood Pressure [Right] O2 Sat by Pulse 95 Oximetry - General Appearance General appearance: well-developed, well-nourished EENT: ATNC Respiratory: Present: Clear to Ascultation Cardiology: regular, S1S2 Gastrointestinal: normal, no tenderness, no distended Integumentary: no rash, warm and dry Neurologic: other (more alert today) Musculoskeletal: other (no edema) Psychiatric: cooperative - Lab 09/04/20 05:19 09/03/20 04:46 Most recent lab results Calcium 9.8 mg/dL (8.4-10.2) 09/03/20 04:46 Medications & Allergies - Medications Allergies/Adverse Reactions: Allergies Penicillins Allergy (Verified 03/15/20 07:07) Rash corn Adverse Reaction (Verified 03/15/20 07:07) Unknown Home Medications: Home Medications Medication Instructions Recorded Confirmed Last Taken Type Acetaminophen [Acetaminophen TAB] 650 mg PO Q4H PRN tablet 06/03/19 09/02/20 09/02/20 Rx LORazepam [Ativan] 1 mg PO BID 08/20/19 09/02/20 03/28/20 17:00 History Memantine Xr [Namenda Xr] 5 mg PO DAILY 12/04/19 12/17/20 07/12/20 09:00 History Midodrine [Proamatine] 10 mg PO TID 08/20/19 09/02/20 03/28/20 17:00 History QUEtiapine [SEROquel] 400 mg PO BID 08/20/19 09/02/20 03/28/20 20:00 History Pantoprazole [Protonix TAB] 40 mg PO BID tablet 10/12/19 09/02/20 03/28/20 17:00 Rx HYDROcodone/APAP 5-325 [[place] 1 each PO Q6H PRN #24 tablet 03/29/20 09/02/20 Unknown Rx 5-325 mg TAB] Divalproex Sprinkle 1,500 mg PO QHS 09/02/20 09/02/20 Unknown History Divalproex Sprinkle [DepaKOTE 250 mg PO ONCE 09/02/20 09/02/20 Unknown History SPRINKLE] Sevelamer Carbonate [Renvela] 0.8 gram PO TIDWM 09/02/20 09/02/20 Unknown History VALPROIC ACID Liq [DepaKENE Liq] 500 mg PO DAILY 09/02/20 09/02/20 Unknown History Active Medications: Generic Name Dose Route Start Last Admin Trade Name Freq PRN Reason Stop Dose Admin Acetaminophen 650 mg 09/02/20 19:55 09/03/20 23:53 Acetaminophen 325 Mg Tab PO 650 mg Q4H PRN Administration Pain MILD(1-3)/Fever >100.5/DRAKE Hydrocodone Bitart/Acetaminophen 1 each 09/02/20 19:55 Hydrocodone/Acetaminophen 5-325 Mg Tab PO Q6H PRN Pain, Moderate (4-6) Divalproex Sodium 250 mg 09/04/20 17:00 09/04/20 17:[address] 250 Mg Tab PO 250 mg DAILY@1700 [facility] Administration Divalproex Sodium 1,500 mg 09/04/20 22:00 09/04/20 21:[address] 500 Mg Tab PO 1,500 mg QHS CONNOR Administration Heparin Sodium (Porcine) 2,400 unit 09/02/20 20:23 Heparin 10,000 Units/10 Ml Vial 40 unit/kg (2400 unit) IV Q6H PRN Anti-Xa Assay < 0.1 units/ml Hydromorphone HCl 0.5 mg 09/02/20 19:59 Hydromorphone 1 Mg/1 Ml Inj IV Q3H PRN Pain , Severe (7-10) Sodium Chloride 100 mls @ 999 mls/hr 09/03/20 11:55 Nacl 0.9% IV BIANCA PRN Hypotension Lorazepam 1 mg 09/02/20 22:00 09/05/20 09:00 Lorazepam 1 Mg Tab PO 1 mg BID CONNOR Administration Memantine 5 mg 09/03/20 10:00 09/05/20 09:00 Memantine 5 Mg Tab PO 5 mg QDAY CONNOR Administration Midodrine 10 mg 09/02/20 20:00 09/05/20 12:20 Midodrine 5 Mg Tab PO Not Given TID@0800,1200,1600 [facility] Ondansetron HCl 4 mg 09/02/20 19:59 Ondansetron 4 Mg/2 Ml Inj IV Q8H PRN Nausea And Vomiting Pantoprazole Sodium 40 mg 09/02/20 22:00 09/05/20 09:01 Pantoprazole 40 Mg Tab PO 40 mg BID CONNOR Administration Quetiapine Fumarate 400 mg 09/02/20 22:00 09/05/20 09:17 Quetiapine 200 Mg Tab PO 400 mg BID CONNOR Administration Sevelamer Carbonate 800 mg 09/03/20 08:00 09/05/20 12:20 Sevelamer Carbonate 800 Mg Tab PO 800 mg TIDWM CONNOR Administration Sodium Bicarbonate 1,300 mg 09/04/20 20:00 09/05/20 08:59 Sodium Bicarbonate 650 Mg Tab PO 1,300 mg TID CONNOR Administration Sodium Chloride 10 ml 09/02/20 22:00 09/05/20 09:02 Sodium Chloride 0.9% 10 Ml Flush Syringe IV 10 ml BID CONNOR Administration Sodium Chloride 10 ml 09/02/20 19:59 Sodium Chloride 0.9% 10 Ml Flush Syringe IV PRN PRN LINE FLUSH Valproic Acid 500 mg 09/03/20 10:00 09/05/20 09:00 Valproic Acid 250 Mg/5 Ml Oral Liqd PO 500 mg DAILY CONNOR Administration
--- NOTE | 2020-09-05 13:55 | Event Note ---
Date: 09/05/20 NPO after MN except sips of water with meds. Plan for possible permcath tomorrow based on cultures.
--- NOTE | 2020-09-05 15:18 | Event Note ---
Date: 09/05/20 Blood cultures from 09/04/2020 have returned positive. Continue with IV vancomycin, repeat blood cultures ordered. Hold off on placing a new PermCath until blood cultures negative for 48 hours. If patient needs dialysis before that, a temporary dialysis catheter may need to be placed.
[2020-09-05 20:09] LABS: Albumin 2.8 g/dL (3.9-5); Calcium 9.3 mg/dL (8.4-10.2)
[2020-09-05] MEDS: DIVALPROEX DR 500 MG TAB PO SCH (22:14)
[2020-09-06 07:24] LABS: Hematocrit 21.6 % (30.3-42.9)
[2020-09-06 08:15] LABS: Albumin 2.4 g/dL (3.9-5); Calcium 9.6 mg/dL (8.4-10.2)
--- NOTE | 2020-09-06 09:16 | Progress Note ---
Assessment and Plan Assessment and plan: 65-year-old female who is a resident of [facility] fpc with history of end-stage renal disease on dialysis, hypertension, bipolar, anxiety, schizophrenia, and GERD who presents to [facility] ED via EMS with complaints of altered mental status, and difficulty breathing. Patient is unable to provide history. History is provided by medical report and review of records. Per fpc staff patient's mentation was altered and displayed difficulty breathing and so she was sent to the ED for further evaluation and treatment. While in the ED patient was noted to be febrile with T-max 102.8, and hypoxic on room air. Here patient had a blood culture. Started on IV antibiotics. Was placed on oxygen supplementation. Coronavirus test ordered and was negative. 09/03. Blood culture growing staph aureus. ID on board. Patient has a permacath on the right chest through which she gets hemodialysis. Vascular surgery consulted for removal of catheter. Echocardiogram ordered to rule out endocarditis 09/04. More awake today. Has no complaints. Maintained on antibiotics. Echocardiogram pending. Vascular surgery consulted for removal of permacath. 09/05. Febrile overnight. Catheter removed by vascular. On IV vancomycin. ID following. BC 09/04 remains NTD. Plan for placement of catheter per vascular and ID. 09/06: No fever in the last 24 hours. If remains afebrile by a.m. we will proceed with placement of permacath per vascular. Continue current management at this time. Plan Sepsis -Blood culture showed staph aureus. -Repeat BC 09/04 - NTD -Source of infection likely permacath. Vascular surgery consulted for permacath removal and this has been removed. -Continue IV antibiotics -ID recs appreciated Staph bacteremia Continue antibiotics Blood culture repeat sent on 09/04. Echocardiogram pending. Transaminitis As result of ongoing systemic infection Continue to trend Acute metabolic encephalopathy -Resolved Elevated D-dimer V/Q showed probability of PE COVID-19 ruled out ESRD Hemodialysis as scheduled Plan for catheter placement is blood culture is negative for 48 hours. Vascular and nephrology on board. DVT prophylaxis Heparin products History Interval history: Patient seen and examined no new complaints at this time. Hospitalist Physical - Physical exam Narrative exam: VITAL SIGNS: Reviewed. GENERAL: Awake HEAD: No signs of head trauma. EYES: Pupils are equal. Extraocular motions intact. MOUTH: Oropharynx is normal. NECK: No adenopathy, no JVD. CHEST: Chest with diminished breath sounds bilaterally. No wheezes, rales, or rhonchi. CARDIAC: normal S1 and S2, without murmurs, gallops, or rubs. ABDOMEN: Soft, non tender and non distended. No rebound or guarding, and no masses palpated. Bowel Sounds normal. MUSCULOSKELETAL: Edema NEUROLOGIC EXAM: Alert and oriented x3. No focal neurologic deficits SKIN: No obvious lesions - Constitutional Vitals: Temp Pulse Resp BP Pulse Ox 97.2 F L 109 H 24 89/45 97 09/06/20 04:18 09/06/20 04:18 09/06/20 04:18 09/06/20 04:18 09/06/20 04:18 General appearance: Present: mild distress (Right neck pain) HEART Score - HEART Score EKG: Normal Age: > 65 Results - Labs CBC & Chem 7: 09/06/20 06:24 09/06/20 06:24 Labs: Laboratory Last Values WBC 4.2 K/mm3 (4.5-11.0) L 09/03/20 04:46 RBC 3.01 M/mm3 (3.65-5.03) L 09/03/20 04:46 Hgb 7.0 gm/dl (10.1-14.3) L 09/06/20 06:24 Hct 21.6 % (30.3-42.9) L 09/06/20 06:24 MCV 80 fl (79-97) 09/03/20 04:46 MCH 25 pg (28-32) L 09/03/20 04:46 MCHC 31 % (30-34) 09/03/20 04:46 RDW 18.4 % (13.2-15.2) H 09/03/20 04:46 Plt Count 150 K/mm3 (140-440) 09/06/20 06:24 Lymph % (Auto) 10.8 % (13.4-35.0) L 09/03/20 04:46 [place] % (Auto) 5.3 % (0.0-7.3) 09/03/20 04:46 Eos % (Auto) 0.0 % (0.0-4.3) 09/03/20 04:46 Baso % (Auto) 0.3 % (0.0-1.8) 09/03/20 04:46 Lymph # (Auto) 0.5 K/mm3 (1.2-5.4) L 09/03/20 04:46 [place] # (Auto) 0.2 K/mm3 (0.0-0.8) 09/03/20 04:46 Eos # (Auto) 0.0 K/mm3 (0.0-0.4) 09/03/20 04:46 Baso # (Auto) 0.0 K/mm3 (0.0-0.1) 09/03/20 04:46 Add Manual Diff Complete 09/02/20 12:42 Seg Neutrophils % 83.6 % (40.0-70.0) H 09/03/20 04:46 Seg Neutrophils # 3.5 K/mm3 (1.8-7.7) 09/03/20 04:46 PT 15.2 Sec. (12.2-14.9) H 09/02/20 20:58 INR 1.22 (0.87-1.13) H 09/02/20 20:58 APTT 34.5 Sec. (24.2-36.6) 09/02/20 20:58 D-Dimer 2836.58 ng/mlDDU (0-234) H 09/02/20 15:12 Heparin Anti-Xa Level 0.21 U.I./ml (0.3-0.7) L 09/04/20 07:56 VBG pH 7.337 (7.320-7.420) 09/02/20 12:42 Sodium 142 mmol/L (137-145) 09/06/20 06:24 Potassium 4.1 mmol/L (3.6-5.0) 09/06/20 06:24 Chloride 103.9 mmol/L (98-107) 09/06/20 06:24 Carbon Dioxide 20 mmol/L (22-30) L 09/06/20 06:24 Anion Gap 22 mmol/L 09/06/20 06:24 BUN 86 mg/dL (7-17) H 09/06/20 06:24 Creatinine 7.2 mg/dL (0.6-1.2) H 09/06/20 06:24 Estimated GFR 7 ml/min 09/06/20 06:24 BUN/Creatinine Ratio 12 % 09/06/20 06:24 Glucose 121 mg/dL (65-100) H 09/06/20 06:24 Hemoglobin A1c 5.3 % (4-6) 09/02/20 20:58 Lactic Acid 0.60 mmol/L (0.7-2.0) L 09/02/20 15:12 Calcium 9.6 mg/dL (8.4-10.2) 09/06/20 06:24 Ferritin 3094.0 ng/mL (10.0-200.0) H 09/02/20 15:12 Total Bilirubin 0.30 mg/dL (0.1-1.2) 09/06/20 06:24 AST 32 units/L (5-40) 09/06/20 06:24 ALT 47 units/L (7-56) 09/06/20 06:24 Alkaline Phosphatase 222 units/L (35-129) H 09/06/20 06:24 Lactate Dehydrogenase 209 units/L (91-180) H 09/02/20 15:12 C-Reactive Protein 32.80 mg/dL (0.00-1.30) H 09/02/20 15:12 Total Protein 6.0 g/dL (6.3-8.2) L 09/06/20 06:24 Albumin 2.4 g/dL (3.9-5) L 09/06/20 06:24 Albumin/Globulin Ratio 0.7 % 09/06/20 06:24 Procalcitonin 19.18 ng/mL (<0.15) 09/02/20 15:12 Urine Color Yellow (Yellow) 09/02/20 12:25 Urine Turbidity Clear (Clear) 09/02/20 12:25 Urine pH 7.0 (5.0-7.0) 09/02/20 12:25 Ur Specific [place] 1.012 (1.003-1.030) 09/02/20 12:25 Urine Protein 100 mg/dl mg/dL (Negative) 09/02/20 12:25 Urine Glucose (UA) Neg mg/dL (Negative) 09/02/20 12:25 Urine Ketones Tr mg/dL (Negative) 09/02/20 12:25 Urine Blood Neg (Negative) 09/02/20 12:25 Urine Nitrite Neg (Negative) 09/02/20 12:25 Urine Bilirubin Neg (Negative) 09/02/20 12:25 Urine Urobilinogen 2.0 mg/dL (<2.0) 09/02/20 12:25 Ur Leukocyte Esterase Tr (Negative) 09/02/20 12:25 Urine WBC (Auto) 7.0 /HPF (0.0-6.0) H 09/02/20 12:25 Urine RBC (Auto) 1.0 /HPF (0.0-6.0) 09/02/20 12:25 U Epithel Cells (Auto) 1.0 /HPF (0-13.0) 09/02/20 12:25 Urine Mucus Few /HPF 09/02/20 12:25 Random Vancomycin 12.9 ug/mL (0-40.0) 09/05/20 18:11 Coronavirus (PCR) Negative (Negative) 09/03/20 10:00 Hepatitis A IgM Ab Non-reactive (NonReactive) 09/03/20 15:31 Hep Bs Antigen Non-reactive (Negative) 09/03/20 15:31 Hep B Core IgM Ab Non-reactive (NonReactive) 09/03/20 15:31 Hepatitis C Antibody Non-reactive (NonReactive) 09/03/20 15:31 Microbiology: Microbiology 09/05/20 18:11 Peripheral/Venous Blood Culture - Preliminary Culture in Progress 09/05/20 18:11 Peripheral/Venous Blood Culture - Preliminary Culture in Progress 09/04/20 14:51 Peripheral/Venous Blood Culture - Preliminary Staphylococcus Aureus 09/04/20 14:51 Peripheral/Venous Blood Culture - Preliminary Staphylococcus Aureus 09/02/20 12:42 Peripheral/Venous Blood Culture - Preliminary Methicillin Resist S. Aureus - Diagnostic Impressions Diagnostic Impressions: Echocardiogram 09/03/20 14:14 Transthoracic Echocardiogram Indication: R/O Endocarditis BP: 89/45 Conclusions *Global left ventricular systolic function is normal. *The estimated ejection fraction is 60-65%. *The left atrium is mildly dilated. *There is trace of mitral regurgitation. *There is mild aortic regurgitation. *There is trace tricuspid regurgitation. *The study quality is technically difficult. Findings Procedure Info: The study quality is technically difficult. Left Ventricle: The left ventricular chamber size is normal. There is no left ventricular hypertrophy. Global left ventricular systolic function is normal. The estimated ejection fraction is 60-65%. Left Atrium: The left atrium is mildly dilated. Right Ventricle: The right ventricular cavity size is normal. The right ventricular global systolic function is normal. Right Atrium: The right atrial cavity size is normal. Aortic Valve: The aortic valve is trileaflet. The aortic valve leaflets are mildly thickened. There is mild aortic regurgitation. There is no evidence of aortic stenosis. Mitral Valve: The mitral valve leaflets are moderately thickened. There is trace of mitral regurgitation. There is no evidence of mitral stenosis. Tricuspid Valve: There is trace tricuspid regurgitation. No pulmonary hypertension is noted. Pulmonic Valve: There is trace pulmonic regurgitation. Pericardium: There is no pericardial effusion. A pericardial fat pad is visualized. Aorta: There is no dilatation of the ascending aorta. There is no dilatation of the aortic root. Venous: The inferior vena cava is not visualized. Measurements Chambers 2D Name Value Normal Range IVSd (2D) 0.85 cm (0.6 - 1.1) LVPWd (2D) 0.85 cm (0.6 - 1.1) LVIDd (2D) 4.5 cm (3.7 - 5.6) LVIDs (2D) 3.12 cm (2 - 3.8) LV FS (2D) 30.78 % - EF Teichholz (2D) 58.5 % - Ao root diameter (2D) 2.66 cm (2 - 3.7) Volumes/Mass Name Value Normal Range LA ESV SP 4CH (A/L) 65.15 ml - LA ESV SP 2CH (A/L) 47.42 ml - LA ESV BP (A/L) 57.96 ml - LA ESV SP 4CH (MOD) 60.34 ml - LA ESV SP 2CH (MOD) 45.08 ml - LV EDV SP 4CH (MOD) 54.03 ml - LV ESV SP 4CH (MOD) 14.63 ml - EF SP 4CH (MOD) 72.93 % - LV EDV SP 2CH (MOD) 44.07 ml - LV ESV SP 2CH (MOD) 12.5 ml - EF SP 2CH (MOD) 71.63 % - LV EDV BP 48.54 ml - LV ESV BP 13.43 ml - BP EF (MOD) 72.33 % - Diastolic/Systolic Function Name Value Normal Range MV E-wave Vmax 0.7 m/sec - MV deceleration time 145.64 msec - MV A-wave Vmax 1 m/sec - MV E:A ratio 0.7 ratio - Aortic Valve Name Value Normal Range AV Vmax 1.13 m/sec - AV VTI 18 cm - AV peak gradient 5.15 mmHg - AV mean gradient 2.76 mmHg - LVOT diameter 2 cm - LVOT Vmax 1.12 m/sec - LVOT VTI 20.27 cm - LVOT peak gradient 5.02 mmHg - LVOT mean gradient 2.05 mmHg - SV LVOT 63.77 ml - ZAIRA (continuity Vmax) 3.11 cm2 - ZAIRA (continuity VTI) 3.54 cm2 - AR PHT 506.95 msec - AR peak gradient 29.25 mmHg - Tricuspid Valve Name Value Normal Range TV E-wave Vmax 0.65 m/sec - Pulmonic Valve/Qp:Qs Name Value Normal Range PV Vmax 0.81 m/sec - PV peak gradient 2.65 mmHg - RVOT Vmax 0.66 m/sec - RVOT VTI 11.49 cm - RVOT peak gradient 1.74 mmHg - PV acceleration time 114.18 msec - Cleary/IV: Voiding Method External Female Catheter IV Catheter Type [Right VAS Cath Subclavian] Active Medications - Current Medications Current Medications: Generic Name Dose Route Start Last Admin Trade Name Freq PRN Reason Stop Dose Admin Acetaminophen 650 mg 09/02/20 19:55 09/03/20 23:53 Acetaminophen 325 Mg Tab PO 650 mg Q4H PRN Administration Pain MILD(1-3)/Fever >100.5/DRAKE Hydrocodone Bitart/Acetaminophen 1 each 09/02/20 19:55 Hydrocodone/Acetaminophen 5-325 Mg Tab PO Q6H PRN Pain, Moderate (4-6) Divalproex Sodium 250 mg 09/04/20 17:00 09/04/20 17:[address] 250 Mg Tab PO 250 mg DAILY@1700 [facility] Administration Divalproex Sodium 1,500 mg 09/04/20 22:00 09/05/20 22:[address] 500 Mg Tab PO 1,500 mg QHS [facility] Administration Heparin Sodium (Porcine) 2,400 unit 09/02/20 20:23 Heparin 10,000 Units/10 Ml Vial 40 unit/kg (2400 unit) IV Q6H PRN Anti-Xa Assay < 0.1 units/ml Hydromorphone HCl 0.5 mg 09/02/20 19:59 Hydromorphone 1 Mg/1 Ml Inj IV Q3H PRN Pain , Severe (7-10) Sodium Chloride 100 mls @ 999 mls/hr 09/03/20 11:55 Nacl 0.9% IV BIANCA PRN Hypotension Lorazepam 1 mg 09/02/20 22:00 09/05/20 21:25 Lorazepam 1 Mg Tab PO Not Given BID [facility] Memantine 5 mg 09/03/20 10:00 09/05/20 09:00 Memantine 5 Mg Tab PO 5 mg QDAY [facility] Administration Midodrine 10 mg 09/02/20 20:00 09/05/20 17:24 Midodrine 5 Mg Tab PO 10 mg TID@0800,1200,1600 [facility] Administration Ondansetron HCl 4 mg 09/02/20 19:59 Ondansetron 4 Mg/2 Ml Inj IV Q8H PRN Nausea And Vomiting Pantoprazole Sodium 40 mg 09/02/20 22:00 09/05/20 22:15 Pantoprazole 40 Mg Tab PO 40 mg BID [facility] Administration Quetiapine Fumarate 400 mg 09/02/20 22:00 09/05/20 22:14 Quetiapine 200 Mg Tab PO 400 mg BID [facility] Administration Sevelamer Carbonate 800 mg 09/03/20 08:00 09/05/20 17:22 Sevelamer Carbonate 800 Mg Tab PO 800 mg TIDWM [facility] Administration Sodium Bicarbonate 1,300 mg 09/04/20 20:00 09/05/20 20:14 Sodium Bicarbonate 650 Mg Tab PO 1,300 mg TID [facility] Administration Sodium Chloride 10 ml 09/02/20 22:00 09/05/20 22:16 Sodium Chloride 0.9% 10 Ml Flush Syringe IV 10 ml BID [facility] Administration Sodium Chloride 10 ml 09/02/20 19:59 Sodium Chloride 0.9% 10 Ml Flush Syringe IV PRN PRN LINE FLUSH Valproic Acid 500 mg 09/03/20 10:00 09/05/20 09:00 Valproic Acid 250 Mg/5 Ml Oral Liqd PO 500 mg DAILY [facility] Administration
[2020-09-06] MEDS: MIDODRINE 5 MG TAB PO SCH ×3 (10:43→18:24)
[2020-09-06] MEDS: LORazepam 1 MG TAB PO SCH ×2 (10:44→21:30)
[2020-09-06] MEDS: QUEtiapine 200 MG TAB PO SCH ×2 (10:44→21:28)
[2020-09-06] MEDS: PANTOPRAZOLE 40 MG TAB PO SCH ×2 (10:44→21:29)
[2020-09-06] MEDS: SEVELAMER CARBONATE 800 MG TAB PO SCH ×3 (10:44→18:24)
[2020-09-06] MEDS: MEMANTINE 5 MG TAB PO SCH (10:44)
[2020-09-06] MEDS: SODIUM BICARBONATE 650 MG TAB PO SCH ×2 (10:44→13:22)
[2020-09-06] MEDS: VALPROIC ACID 250 MG/5 ML ORAL LIQD PO SCH (10:49)
[2020-09-06] MEDS ORDERED: MIDAZOLAM 2 MG/2 ML INJ ONE (11:34)
[2020-09-06] MEDS ORDERED: HEPARIN 10,000 UNITS/10 ML VIAL ONE (11:34)
[2020-09-06] MEDS ORDERED: HEPARIN/NS 5000 UNIT/500ML 500 ML IR ONE (11:34)
[2020-09-06] MEDS ORDERED: LIDOCAINE (2%) 20 MG/1 ML VIAL 20 ML MDV INFILTRATI ONE (11:35)
[2020-09-06] MEDS ORDERED: fentaNYL 100 MCG/2 ML INJ ONE (11:35)
[2020-09-06] MEDS ORDERED: SODIUM CHLORIDE 0.9% 250ML 250 ML ONE (11:41)
--- NOTE | 2020-09-06 12:44 | Event Note ---
Date: 09/06/20 Temporary dialysis catheter placed today. Once bacteremia clears, then can be converted to PermCath.
--- NOTE | 2020-09-06 12:44 | Operative Report ---
Operative Report Operative Report: EXAM: 1. Ultrasound-guided puncture of the left internal jugular vein 2. Fluoroscopic-guided placement of a left internal jugular nontunneled noncuffed hemodialysis catheter. 3. Selection of the IVC with an angled catheter from the left internal jugular vein. DATE: 09/06/2020 INDICATION: End-stage renal disease requiring requiring hemodialysis. MEDICATIONS: Please see nursing report for full details. DEVICES: 20 cm triple lumen hemodialysis catheter HUMAN [employer]OURCES TALENT MANAGER: LEONORA HINOJOSA MD CONTRAST: None PROCEDURE: The risks, benefits, and alternatives were discussed and informed consent was obtained. The patient was transported to the angiography suite in satisfactory/stable condition and was transported onto the angiography table. The patient's left internal jugular vein was assessed with ultrasound and determined to be patent prior to procedure. The patient was prepped and draped in a sterile fashion. The puncture site was anesthetized. The left internal jugular vein was patent on ultrasound. Under sonographic guidance, the left internal jugular vein was punctured with a 21-gauge micropuncture needle and a 0.018 inch wire was advanced through the needle. Needle was exchanged for transitional dilator. The inner dilator and wire was removed and a 0.035 inch wire was advanced through the transitional dilator into the inferior vena cava with the assistance of an angled catheter. Angled catheter was used to select the IVC. Over the 0.035 inch wire, serial dilatation was performed. The catheter was advanced over the wire and positioned centrally under fluoroscopic guidance. 2-0 nylon suture was used to secure the catheter. The dialysis lumens of the catheter was charged with 1000 units of heparin per mL of space. The central PICC portion of the catheter was charged with 10 units of heparin per mL of space. Sterile dressing and Biopatch applied. The patient was transferred from the angiography suite back to the floor in stable condition. FINDINGS: 1. Excellent flow was obtained through the dialysis catheter with 20 mL syringes. 2. The catheter tip is in the right atrium. IMPRESSION: 1. Successful sonographically and fluoroscopically guided placement of a left internal jugular nontunneled noncuffed hemodialysis catheter. 2. Selection of the IVC with an angled catheter.
--- NOTE | 2020-09-06 13:06 | Progress Note ---
Assessment and Plan Cultures: 09/02/2020 blood culture: MRSA 09/04/2020 blood culture: MRSA 09/05/2020 blood culture: In process Assessment: 65 years old female with history of end-stage renal disease on hemodialysis, hypertension, schizophrenia, previous malfunctional HD access, PermCath exchange in 2019, admitted on 09/02/2020 secondary to altered mental status, confusion and shortness of breath: #Severe sepsis: secondary to bacteremia, chest x-ray unremarkable. SARS-CoV-2 PCR negative. #MRSA bacteremia: Likely secondary to PermCath infection. No obvious wounds. PermCath was removed on 09/04/2020. TTE without obvious valvular vegetations. #End-stage renal disease: On hemodialysis. Renally dose antibiotics. #Transaminitis: Likely secondary to sepsis. #Elevated D-dimer: SARS-CoV-2 PCR negative. Likely reactive. VQ scan with low probability for PE. #Acute encephalopathy: Likely secondary to sepsis/bacteremia Recommendations: -Continue IV vancomycin, renally dosed -Follow-up blood cultures to ensure clearance -Got temporary dialysis catheter placed today, once blood cultures negative for 48 hours, okay to proceed with PermCath placement Gloria Cardenas MD, FACP [facility] O: [phone] F: [phone] Subjective Date of service: 09/06/20 Interval history: Sleepy following procedure. No fever. Got temporary HD catheter placed. Objective - Exam Narrative Exam: Physical Exam: Constitutional: Sleepy. No acute distress Head, Ears, Nose: Normocephalic, atraumatic. External ears, nose normal Eyes: Conjunctivae/corneas clear. No icterus. No ptosis. Neck: Supple, no meningeal signs. Left-sided dialysis catheter present Cardiovascular: S1, S2 normal. Respiratory: Good air entry, clear to auscultation bilaterally GI: Soft, non-tender; bowel sounds normal. No peritoneal signs Musculoskeletal: No pedal edema, no cyanosis. Skin: No rash or abscess Hem/Lymphatic: No palpable cervical or supraclavicular nodes. No lymphangitis Psych: Drowsy Neurological: Sleepy but easily awakened - Constitutional Vitals: Vital Signs Temp Pulse Resp BP Pulse Ox 97.9 F 80 20 134/80 96 09/06/20 12:24 09/06/20 12:24 09/06/20 12:24 09/06/20 12:24 09/06/20 12:24 Temperature -Last 24 Hours Temperature 97.9 F Temperature 97.2 F Temperature 97.2 F Temperature 97.3 F - Labs CBC & Chem 7: 09/06/20 06:24 09/06/20 06:24 Labs: Abnormal lab results 09/05/20 09/06/20 09/06/20 Range/Units 18:11 06:24 06:24 Hgb 7.0 L (10.1-14.3) gm/dl Hct 21.6 L (30.3-42.9) % Carbon Dioxide 17 L 20 L (22-30) mmol/L BUN 83 H 86 H (7-17) mg/dL Creatinine 7.0 H 7.2 H (0.6-1.2) mg/dL Glucose 138 H 121 H (65-100) mg/dL ALT 58 H (7-56) units/L Alkaline Phosphatase 250 H 222 H (35-129) units/L Total Protein 5.9 L 6.0 L (6.3-8.2) g/dL Albumin 2.8 L 2.4 L (3.9-5) g/dL
[2020-09-06] MEDS ORDERED: VANCOMYCIN/NS 1 GM/250 ML 1 GM/250 ML BAG IV ONE (20:00)
--- NOTE | 2020-09-06 20:22 | Progress Note ---
Assessment and Plan Impression: * End stage renal disease * Sepsis * Catheter associated bacteremia --Blood cx: MRSA --Permcath removal (Sep 04), s/p vasc-cath placement (09/06) * Acute encephalopathy * Anemia secondary to ESRD * Secondary hyperparathyroidism * Schizophrenia Plan: * Seen during dialysis today. Soft blood pressures and mild tachycardia noted. Decreased BFR and hold UF. * Patient is supposed to be on midodrine but was not given today, reason unclear * Continue midodrine daily * Permacath placement once cultures are negative for 48 hours * Abx per ID * Medical management of electrolytes * Dose medications for renal function * Epogen TIW prn * Renal diet Subjective Date of service: 09/06/20 Principal diagnosis: Bacteremia Interval history: Patient was seen for her renal issues Nursing, interdisciplinary and consult notes were reviewed Vitals, input and output, medications and labs were reviewed Patient was seen during dialysis. No complications noted noted except for soft blood pressures and mild tachycardia Objective - Exam Narrative Exam: Constitutional: No acute distress Head: Normocephalic/atraumatic Neck: Supple Lungs: Clear to auscultation bilaterally Cardiovascular: RRR, no M/R/G Abdomen: Soft, nontender, NABS Back, nontender Extremities: No edema, pulses within normal limits Skin: Intact, no rash Neuro: Alert - Vital Signs Vital signs: Vital Signs - 12hr 09/06/20 09/06/20 09/06/20 09:27 12:24 13:17 Temperature 97.9 F Pulse Rate 80 103 H Respiratory 20 Rate Blood Pressure 115/54 Blood Pressure 134/80 [Right] O2 Sat by Pulse 97 96 99 Oximetry 09/06/20 09/06/20 09/06/20 13:21 13:36 14:22 Temperature 97.6 F Pulse Rate 99 H 98 H Respiratory Rate Blood Pressure 100/51 101/53 Blood Pressure [Right] O2 Sat by Pulse 100 100 Oximetry 09/06/20 09/06/20 14:35 15:44 Temperature Pulse Rate 98 H 106 H Respiratory Rate Blood Pressure 103/48 115/60 Blood Pressure [Right] O2 Sat by Pulse 100 97 Oximetry - Lab 09/06/20 06:24 09/06/20 06:24 Most recent lab results Calcium 9.6 mg/dL (8.4-10.2) 09/06/20 06:24 Medications & Allergies - Medications Allergies/Adverse Reactions: Allergies Penicillins Allergy (Verified 03/15/20 07:07) Rash corn Adverse Reaction (Verified 03/15/20 07:07) Unknown Home Medications: Home Medications Medication Instructions Recorded Confirmed Last Taken Type Acetaminophen [Acetaminophen TAB] 650 mg PO Q4H PRN tablet 06/03/19 09/02/20 09/02/20 Rx LORazepam [Ativan] 1 mg PO BID 08/20/19 09/02/20 03/28/20 17:00 History Memantine Xr [Namenda Xr] 5 mg PO DAILY 08/20/19 09/02/20 03/28/20 09:00 History Midodrine [Proamatine] 10 mg PO TID 08/20/19 09/02/20 03/28/20 17:00 History QUEtiapine [SEROquel] 400 mg PO BID 08/20/19 09/02/20 03/28/20 20:00 History Pantoprazole [Protonix TAB] 40 mg PO BID tablet 10/12/19 09/02/20 03/28/20 17:00 Rx HYDROcodone/APAP 5-325 [[place] 1 each PO Q6H PRN #24 tablet 03/29/20 09/02/20 Unknown Rx 5-325 mg TAB] Divalproex Sprinkle 1,500 mg PO QHS 09/02/20 09/02/20 Unknown History Divalproex Sprinkle [DepaKOTE 250 mg PO ONCE 09/02/20 09/02/20 Unknown History SPRINKLE] Sevelamer Carbonate [Renvela] 0.8 gram PO TIDWM 09/02/20 09/02/20 Unknown History VALPROIC ACID Liq [DepaKENE Liq] 500 mg PO DAILY 09/02/20 09/02/20 Unknown History Active Medications: Generic Name Dose Route Start Last Admin Trade Name Freq PRN Reason Stop Dose Admin Acetaminophen 650 mg 09/02/20 19:55 09/03/20 23:53 Acetaminophen 325 Mg Tab PO 650 mg Q4H PRN Administration Pain MILD(1-3)/Fever >100.5/DRAKE Hydrocodone Bitart/Acetaminophen 1 each 09/02/20 19:55 Hydrocodone/Acetaminophen 5-325 Mg Tab PO Q6H PRN Pain, Moderate (4-6) Divalproex Sodium 250 mg 09/04/20 17:00 09/04/20 17:[address] 250 Mg Tab PO 250 mg DAILY@1700 [facility] Administration Divalproex Sodium 1,500 mg 09/04/20 22:00 09/05/20 22:[address] 500 Mg Tab PO 1,500 mg QHS [facility] Administration Heparin Sodium (Porcine) 2,400 unit 09/02/20 20:23 Heparin 10,000 Units/10 Ml Vial 40 unit/kg (2400 unit) IV Q6H PRN Anti-Xa Assay < 0.1 units/ml Hydromorphone HCl 0.5 mg 09/02/20 19:59 Hydromorphone 1 Mg/1 Ml Inj IV Q3H PRN Pain , Severe (7-10) Sodium Chloride 100 mls @ 999 mls/hr 09/03/20 11:55 Nacl 0.9% IV BIANCA PRN Hypotension Vancomycin HCl 1 gm in 250 mls @ 167.007 mls/hr 09/06/20 20:00 Vancomycin/Ns 1 Gm/250 Ml IV 09/06/20 21:29 ONCE ONE Lorazepam 1 mg 09/02/20 22:00 09/06/20 10:44 Lorazepam 1 Mg Tab PO Not Given BID [facility] Memantine 5 mg 09/03/20 10:00 09/06/20 10:44 Memantine 5 Mg Tab PO Not Given QDAY [facility] Midodrine 10 mg 09/02/20 20:00 09/06/20 18:24 Midodrine 5 Mg Tab PO Not Given TID@0800,1200,1600 [facility] Ondansetron HCl 4 mg 09/02/20 19:59 Ondansetron 4 Mg/2 Ml Inj IV Q8H PRN Nausea And Vomiting Pantoprazole Sodium 40 mg 09/02/20 22:00 09/06/20 10:44 Pantoprazole 40 Mg Tab PO Not Given BID [facility] Quetiapine Fumarate 400 mg 09/02/20 22:00 09/06/20 10:44 Quetiapine 200 Mg Tab PO Not Given BID [facility] Sevelamer Carbonate 800 mg 09/03/20 08:00 09/06/20 18:24 Sevelamer Carbonate 800 Mg Tab PO Not Given TIDWM [facility] Sodium Bicarbonate 1,300 mg 09/04/20 20:00 09/06/20 13:22 Sodium Bicarbonate 650 Mg Tab PO 1,300 mg TID [facility] Administration Sodium Chloride 10 ml 09/02/20 22:00 09/06/20 10:45 Sodium Chloride 0.9% 10 Ml Flush Syringe IV 10 ml BID [facility] Administration Sodium Chloride 10 ml 09/02/20 19:59 Sodium Chloride 0.9% 10 Ml Flush Syringe IV PRN PRN LINE FLUSH Sodium Polystyrene Sulfonate 15 gm 09/07/20 10:00 Sodium Polystyrene 15 Gm/60 Ml Oral Liqd PO QDAY [facility] Valproic Acid 500 mg 09/03/20 10:00 09/06/20 10:49 Valproic Acid 250 Mg/5 Ml Oral Liqd PO 500 mg DAILY [facility] Administration
[2020-09-06] MEDS: DIVALPROEX DR 500 MG TAB PO SCH (21:29)
[2020-09-07 08:07] LABS: Albumin 2.3 g/dL (3.9-5); Calcium 9.2 mg/dL (8.4-10.2)
--- NOTE | 2020-09-07 09:01 | Progress Note ---
Assessment and Plan Impression: * End stage renal disease * Sepsis * Catheter associated bacteremia --Blood cx: MRSA --Permcath removal (Sep 04), s/p vasc-cath placement (09/06) * Acute encephalopathy * Anemia secondary to ESRD * Secondary hyperparathyroidism * Schizophrenia Plan: * Plan for next session of hemodialysis tomorrow * Continue midodrine daily * Hold permacath placement as cultures resulted positive * Abx per ID * ID note/plan reviewed * Medical management of electrolytes * Dose medications for renal function * Epogen TIW prn * Renal diet Subjective Date of service: 09/07/20 Principal diagnosis: Bacteremia Interval history: Patient was seen for her renal issues Nursing, interdisciplinary and consult notes were reviewed Vitals, input and output, medications and labs were reviewed Repeat blood cultures positive Remains altered Objective - Exam Narrative Exam: Constitutional: No acute distress Head: Normocephalic/atraumatic Neck: Supple Lungs: Clear to auscultation bilaterally Cardiovascular: RRR, no M/R/G Abdomen: Soft, nontender, NABS Back, nontender Extremities: No edema, pulses within normal limits Skin: Intact, no rash Neuro: Somnolent - Vital Signs Vital signs: Vital Signs - 12hr 09/06/20 09/06/20 09/06/20 21:14 22:49 23:00 Temperature 102.0 F H 100 F H Pulse Rate 84 Respiratory 16 18 Rate Blood Pressure 101/36 Blood Pressure 102/45 [Right] O2 Sat by Pulse 98 96 Oximetry 09/06/20 09/07/20 23:30 06:17 Temperature 99.8 F H 97.6 F Pulse Rate 105 H Respiratory 20 Rate Blood Pressure 107/73 Blood Pressure [Right] O2 Sat by Pulse 96 Oximetry - Lab 09/06/20 06:24 09/07/20 06:46 Most recent lab results Calcium 9.2 mg/dL (8.4-10.2) 09/07/20 06:46 Medications & Allergies - Medications Allergies/Adverse Reactions: Allergies Penicillins Allergy (Verified 03/15/20 07:07) Rash corn Adverse Reaction (Verified 03/15/20 07:07) Unknown Home Medications: Home Medications Medication Instructions Recorded Confirmed Last Taken Type Acetaminophen [Acetaminophen TAB] 650 mg PO Q4H PRN tablet 06/03/19 09/02/20 09/02/20 Rx LORazepam [Ativan] 1 mg PO BID 08/20/19 09/02/20 03/28/20 17:00 History Memantine Xr [Namenda Xr] 5 mg PO DAILY 08/20/19 09/02/20 03/28/20 09:00 History Midodrine [Proamatine] 10 mg PO TID 08/20/19 09/02/20 03/28/20 17:00 History QUEtiapine [SEROquel] 400 mg PO BID 08/20/19 09/02/20 03/28/20 20:00 History Pantoprazole [Protonix TAB] 40 mg PO BID tablet 10/12/19 09/02/20 03/28/20 17:00 Rx HYDROcodone/APAP 5-325 [[place] 1 each PO Q6H PRN #24 tablet 03/29/20 09/02/20 Unknown Rx 5-325 mg TAB] Divalproex Sprinkle 1,500 mg PO QHS 09/02/20 09/02/20 Unknown History Divalproex Sprinkle [DepaKOTE 250 mg PO ONCE 09/02/20 09/02/20 Unknown History SPRINKLE] Sevelamer Carbonate [Renvela] 0.8 gram PO TIDWM 09/02/20 09/02/20 Unknown History VALPROIC ACID Liq [DepaKENE Liq] 500 mg PO DAILY 09/02/20 09/02/20 Unknown History Active Medications: Generic Name Dose Route Start Last Admin Trade Name Freq PRN Reason Stop Dose Admin Acetaminophen 650 mg 09/02/20 19:55 09/03/20 23:53 Acetaminophen 325 Mg Tab PO 650 mg Q4H PRN Administration Pain MILD(1-3)/Fever >100.5/DRAKE Hydrocodone Bitart/Acetaminophen 1 each 09/02/20 19:55 Hydrocodone/Acetaminophen 5-325 Mg Tab PO Q6H PRN Pain, Moderate (4-6) Divalproex Sodium 250 mg 09/04/20 17:00 09/04/20 17:[address] 250 Mg Tab PO 250 mg DAILY@1700 [facility] Administration Divalproex Sodium 1,500 mg 09/04/20 22:00 09/06/20 21:[address] 500 Mg Tab PO 1,500 mg QHS CONNOR Administration Heparin Sodium (Porcine) 2,400 unit 09/02/20 20:23 Heparin 10,000 Units/10 Ml Vial 40 unit/kg (2400 unit) IV Q6H PRN Anti-Xa Assay < 0.1 units/ml Hydromorphone HCl 0.5 mg 09/02/20 19:59 Hydromorphone 1 Mg/1 Ml Inj IV Q3H PRN Pain , Severe (7-10) Sodium Chloride 100 mls @ 999 mls/hr 09/03/20 11:55 Nacl 0.9% IV BIANCA PRN Hypotension Lorazepam 1 mg 09/02/20 22:00 09/06/20 21:30 Lorazepam 1 Mg Tab PO Not Given BID CONNOR Memantine 5 mg 09/03/20 10:00 09/06/20 10:44 Memantine 5 Mg Tab PO Not Given QDAY CONNOR Midodrine 10 mg 09/02/20 20:00 09/06/20 18:24 Midodrine 5 Mg Tab PO Not Given TID@0800,1200,1600 CON[facility] Ondansetron HCl 4 mg 09/02/20 19:59 Ondansetron 4 Mg/2 Ml Inj IV Q8H PRN Nausea And Vomiting Pantoprazole Sodium 40 mg 09/02/20 22:00 09/06/20 21:29 Pantoprazole 40 Mg Tab PO 40 mg BID CONNOR Administration Quetiapine Fumarate 400 mg 09/02/20 22:00 09/06/20 21:28 Quetiapine 200 Mg Tab PO 400 mg BID CONNOR Administration Sevelamer Carbonate 800 mg 09/03/20 08:00 09/06/20 18:24 Sevelamer Carbonate 800 Mg Tab PO Not Given TIDWM CONNOR Sodium Chloride 10 ml 09/02/20 22:00 09/06/20 21:29 Sodium Chloride 0.9% 10 Ml Flush Syringe IV 10 ml BID CONNOR Administration Sodium Chloride 10 ml 09/02/20 19:59 Sodium Chloride 0.9% 10 Ml Flush Syringe IV PRN PRN LINE FLUSH Valproic Acid 500 mg 09/03/20 10:00 09/06/20 10:49 Valproic Acid 250 Mg/5 Ml Oral Liqd PO 500 mg DAILY CONNOR Administration
[2020-09-07] MEDS: VALPROIC ACID 250 MG/5 ML ORAL LIQD PO SCH (09:12)
[2020-09-07] MEDS: MIDODRINE 5 MG TAB PO SCH ×3 (09:14→18:53)
[2020-09-07] MEDS: PANTOPRAZOLE 40 MG TAB PO SCH ×2 (09:15→21:53)
[2020-09-07] MEDS: LORazepam 1 MG TAB PO SCH ×2 (09:16→21:53)
[2020-09-07] MEDS: MEMANTINE 5 MG TAB PO SCH (09:18)
[2020-09-07] MEDS: QUEtiapine 200 MG TAB PO SCH ×2 (09:19→21:53)
[2020-09-07] MEDS: SEVELAMER CARBONATE 800 MG TAB PO SCH ×3 (09:19→18:53)
[2020-09-07] MEDS ORDERED: SODIUM POLYSTYRENE 15 GM/60 ML ORAL LIQD PO SCH (10:00)
--- NOTE | 2020-09-07 10:36 | Progress Note ---
Assessment and Plan Cultures: 09/02/2020 blood culture: MRSA 09/04/2020 blood culture: MRSA 09/05/2020 blood culture: GPC Assessment: 65 years old female with history of end-stage renal disease on hemodialysis, hypertension, schizophrenia, previous malfunctional HD access, PermCath exchange in 2019, admitted on 09/02/2020 secondary to altered mental status, confusion and shortness of breath: #Severe sepsis: secondary to bacteremia, chest x-ray unremarkable. SARS-CoV-2 PCR negative. #MRSA bacteremia: Likely secondary to PermCath infection. No obvious wounds. PermCath was removed on 09/04/2020. TTE without obvious valvular vegetations. #End-stage renal disease: On hemodialysis. Renally dose antibiotics. #Transaminitis: Likely secondary to sepsis. #Elevated D-dimer: SARS-CoV-2 PCR negative. Likely reactive. VQ scan with low probability for PE. #Acute encephalopathy: Likely secondary to sepsis/bacteremia Recommendations: -Blood cultures positive again, repeat ordered -consider JAYDEN -given encephalopathy, MRI brain without contrast ordered, rule out septic emboli to the brain -Continue IV vancomycin, renally dosed -need blood cultures negative for at least 48 hours before we can proceed with PermCath placement Gloria Cardenas MD, FACP [facility] O: [phone] F: [phone] Subjective Date of service: 09/07/20 Principal diagnosis: Bacteremia Interval history: Ongoing fevers. Blood cultures positive. Still encephalopathic per RN. Objective - Exam Narrative Exam: Physical Exam: Constitutional: Sleepy. No acute distress Head, Ears, Nose: Normocephalic, atraumatic. External ears, nose normal Eyes: Conjunctivae/corneas clear. No icterus. No ptosis. Neck: Supple, no meningeal signs. Left-sided dialysis catheter present Cardiovascular: S1, S2 normal. Respiratory: Good air entry, clear to auscultation bilaterally GI: Soft, non-tender; bowel sounds normal. No peritoneal signs Musculoskeletal: No pedal edema, no cyanosis. Skin: No rash or abscess Hem/Lymphatic: No palpable cervical or supraclavicular nodes. No lymphangitis Psych: Drowsy Neurological: Sleepy but easily awakened - Constitutional Vitals: Vital Signs Temp Pulse Resp BP Pulse Ox 97.6 F 105 H 20 107/73 96 12/22/20 06:17 09/07/20 06:17 09/07/20 06:17 09/07/20 06:17 09/07/20 06:17 Temperature -Last 24 Hours Temperature 97.6 F Temperature 99.8 F Temperature 100 F Temperature 102.0 F Temperature 99.9 F Temperature 98.2 F Temperature 98.3 F Temperature 97.6 F Temperature 97.9 F - Labs CBC & Chem 7: 09/06/20 06:24 09/07/20 06:46 Labs: Abnormal lab results 09/07/20 Range/Units 06:46 BUN 24 H (7-17) mg/dL Creatinine 3.3 H D (0.6-1.2) mg/dL Glucose 111 H (65-100) mg/dL Alkaline Phosphatase 210 H (35-129) units/L Total Protein 6.0 L (6.3-8.2) g/dL Albumin 2.3 L (3.9-5) g/dL
--- NOTE | 2020-09-07 11:17 | Progress Note ---
Assessment and Plan --Sepsis -Blood culture showed staph aureus. -Repeat BC 09/04 - NTD -Source of infection likely permacath. Vascular surgery consulted for permacath removal and this has been removed and replaced with temporary vascath . -Continue IV antibiotics -ID recs appreciated --Staph bacteremia/MRSA Continue antibiotics Blood culture repeat sent on 09/04, 09/05 and positive Resent Cx today Echocardiogram showed no vegetation need JAYDEN as blood cx persistently positive --Transaminitis As result of ongoing systemic infection Continue to trend --Acute metabolic encephalopathy -Resolved --Elevated D-dimer V/Q showed low probability of PE COVID-19 ruled out --ESRD Hemodialysis as scheduled Plan for catheter placement is blood culture is negative for 48 hours. Vascular and nephrology on board. --DVT prophylaxis Heparin products Brief History; 65-year-old female who is a resident of [facility] with history of end-stage renal disease on dialysis, hypertension, bipolar, anxiety, schizophrenia, and GERD who presents to [facility] ED via EMS with complaints of altered mental status, and difficulty breathing. Patient is unable to provide history. History is provided by medical report and review of records. Per long term staff patient's mentation was altered and displayed difficulty breathing and so she was sent to the ED for further evaluation and treatment. While in the ED patient was noted to be febrile with T-max 102.8, and hypoxic on room air. Here patient had a blood culture. Started on IV antibiotics. Was placed on oxygen supplementation. Coronavirus test ordered and was negative. 09/03. Blood culture growing staph aureus. ID on board. Patient has a permacath on the right chest through which she gets hemodialysis. Vascular surgery consulted for removal of catheter. Echocardiogram ordered to rule out endocarditis 09/04. More awake today. Has no complaints. Maintained on antibiotics. Echocardiogram pending. Vascular surgery consulted for removal of permacath. 09/05. Febrile overnight. Catheter removed by vascular. On IV vancomycin. ID following. BC 09/04 remains NTD. Plan for placement of catheter per vascular and ID. 09/06: No fever in the last 24 hours. If remains afebrile by a.m. we will proceed with placement of permacath per vascular. Continue current management at this time. 09/07: s/p perm cath placement yesterday. cont current Mx. -Blood cultures positive again, repeat ordered, ID recommended JAYDEN and given encephalopathy, MRI brain without contrast ordered, rule out septic emboli to the brain. will need abx set up with HD on discharge. CM consulted Subjective Date of service: 09/07/20 Principal diagnosis: Bacteremia Interval history: Patient seen and examined no acute issue o/n denies any SOB or chest pain Objective - Exam Narrative Exam: GENERAL: Awake HEAD: No signs of head trauma. EYES: Pupils are equal. Extraocular motions intact. MOUTH: Oropharynx is normal. NECK: No adenopathy, no JVD. CHEST: Chest with diminished breath sounds bilaterally. No wheezes, rales, or rhonchi. CARDIAC: normal S1 and S2, without murmurs, gallops, or rubs. ABDOMEN: Soft, non tender and non distended. No rebound or guarding, and no masses palpated. Bowel Sounds normal. MUSCULOSKELETAL: Edema NEUROLOGIC EXAM: Alert and oriented. No focal neurologic deficits SKIN: No obvious lesions - Constitutional Vitals: Vital Signs - 12hr 09/06/20 09/07/20 23:30 06:17 Temperature 99.8 F H 97.6 F Pulse Rate 105 H Respiratory 20 Rate Blood Pressure 107/73 O2 Sat by Pulse 96 Oximetry - Labs CBC & Chem 7: 09/10/20 04:17 09/09/20 05:45 Labs: Abnormal lab results 09/07/20 Range/Units 06:46 BUN 24 H (7-17) mg/dL Creatinine 3.3 H D (0.6-1.2) mg/dL Glucose 111 H (65-100) mg/dL Alkaline Phosphatase 210 H (35-129) units/L Total Protein 6.0 L (6.3-8.2) g/dL Albumin 2.3 L (3.9-5) g/dL HEART Score - HEART Score EKG: Normal Age: > 65
--- NOTE | 2020-09-07 15:56 | Magnetic Resonance Report ---
MR brain wo con INDICATION / CLINICAL INFORMATION: 65 years Female; bacteremia, encephalopathy, rule out septic emboli. TECHNIQUE: Multiplanar, multisequence MR images of the brain were obtained. COMPARISON: None available. FINDINGS: BRAIN / INTRACRANIAL CONTENTS: The motion degrades the image quality despite using a fast acquisition sequences. However, there are mild periventricular white matter changes most consistent with microva scular angiopathy. The diffusion imaging reveals no clear evidence of acute infarction. There is advanced cerebral atrophy for age which appears most notably involving temporal lobes at. Th ere is associated mild prominence of the ventricular system. No extra-axial fluid collections or sign ificant mass effect is identified. CRANIOCERVICAL JUNCTION: No significant abnormality. VASCULAR FLOW-VOIDS: No significant abnormality. ORBITS: No significant abnormality of visualized orbits. SINUSES / MASTOIDS: There is minimal mucosal thickening within the ethmoid air cells. ADDITIONAL FINDINGS: None. IMPRESSION: 1. The motion degrades the image quality. However, there is mild microvascular angiopathy without taylro dence of acute infarction. 2. There is advanced to cerebral atrophy for age as described. Signer Name: Janes Hancock MD Signed: 09/07/2020 3:52 PM Workstation Name: [id number]
[2020-09-07] MEDS: DIVALPROEX DR 250 MG TAB PO SCH ×2 (18:55→18:57)
[2020-09-07] MEDS: DIVALPROEX DR 500 MG TAB PO SCH (21:53)
[2020-09-08 06:07] LABS: Hemoglobin 6.2 gm/dl (10.1-14.3)
[2020-09-08 06:12] LABS: Hematocrit 19.8 % (30.3-42.9)
[2020-09-08 06:27] LABS: Albumin 2.1 g/dL (3.9-5); Calcium 9.4 mg/dL (8.4-10.2)
[2020-09-08] MEDS: LORazepam 1 MG TAB PO SCH ×2 (09:39→21:17)
[2020-09-08] MEDS: QUEtiapine 200 MG TAB PO SCH ×2 (09:39→21:17)
[2020-09-08] MEDS: MIDODRINE 5 MG TAB PO SCH ×3 (09:39→16:00)
[2020-09-08] MEDS: PANTOPRAZOLE 40 MG TAB PO SCH ×2 (09:39→21:17)
[2020-09-08] MEDS: VALPROIC ACID 250 MG/5 ML ORAL LIQD PO SCH (09:41)
[2020-09-08] MEDS: SEVELAMER CARBONATE 800 MG TAB PO SCH ×3 (09:41→17:00)
[2020-09-08] MEDS: MEMANTINE 5 MG TAB PO SCH (09:41)
[2020-09-08] MEDS ORDERED: SODIUM CHLORIDE 0.9% 500 ML 500 ML IV SCH (11:00)
[2020-09-08] MEDS ORDERED: LIDOCAINE MPF (2%) 20 MG/1 ML VIAL 5 ML ONE (13:27)
[2020-09-08] MEDS ORDERED: propofoL 200 MG/20 ML VIAL IV ONE (13:27)
--- NOTE | 2020-09-08 13:35 | Consultation ---
History of Present Illness Consult date: 09/08/20 Requesting physician: FRANCO SORTO Consult reason: other (yazmin) History of present illness: The pt is a 65 YO female with a past medical history of ESRD on HD, HTN, schizophrenia, previous malfunctional HD access, PermCath exchange in 2019. She is previously unknown to our practice. She was admitted on 09/02/2020 secondary to altered mental status, confusion and shortness of breath. She was subsequently diagnosed with severe sepsis, bacteremia likely secondary to PerCath infection (catheter removed on 09/04/2020). tte done 09/03/2020 showed EF 60-65%, LA mildly dilated, trace MR, mild AR, trace TR. Cardiology has been consulted for YAZMIN in setting of persistent bacteremia. Past History Past Medical History: diabetes, ESRD, GERD, hypertension, other (Bipolar, schizophrenia, dysphagia, cognitive communication deficit, anxiety, chronic anemia, seizures, generalized weakness ) Past Surgical History: hysterectomy, Other (Right chest permacath, SHAYY AV fistula ) Social history: other (group home resident ([facility])) Family history: no significant family history Medications and Allergies Allergies Allergy/AdvReac Type Severity Reaction Status Date / Time Penicillins Allergy Rash Verified 03/15/20 07:07 corn AdvReac Unknown Verified 03/15/20 07:07 Home Medications Medication Instructions Recorded Confirmed Last Taken Type Acetaminophen [Acetaminophen TAB] 650 mg PO Q4H PRN tablet 06/03/19 09/02/20 09/02/20 Rx LORazepam [Ativan] 1 mg PO BID 08/20/19 09/02/20 03/28/20 17:00 History Memantine Xr [Namenda Xr] 5 mg PO DAILY 08/20/19 09/02/20 03/28/20 09:00 History Midodrine [Proamatine] 10 mg PO TID 08/20/19 09/02/20 03/28/20 17:00 History QUEtiapine [SEROquel] 400 mg PO BID 08/20/19 09/02/20 03/28/20 20:00 History Pantoprazole [Protonix TAB] 40 mg PO BID tablet 10/12/19 09/02/20 03/28/20 17:00 Rx HYDROcodone/APAP 5-325 [[place] 1 each PO Q6H PRN #24 tablet 03/29/20 09/02/20 Un known Rx 5-325 mg TAB] Divalproex Sprinkle 1,500 mg PO QHS 09/02/20 09/02/20 Unknown History Divalproex Sprinkle [DepaKOTE 250 mg PO ONCE 09/02/20 09/02/20 Unknown History SPRINKLE] Sevelamer Carbonate [Renvela] 0.8 gram PO TIDWM 09/02/20 09/02/20 Unknown History VALPROIC ACID Liq [DepaKENE Liq] 500 mg PO DAILY 09/02/20 09/02/20 Unknown History Active Meds: Active Medications Acetaminophen (Acetaminophen 325 Mg Tab) 650 mg PO Q4H PRN PRN Reason: Pain MILD(1-3)/Fever >100.5/DRAKE Last Admin: 09/03/20 23:53 Dose: 650 mg Documented by: Hydrocodone Bitart/Acetaminophen (Hydrocodone/Acetaminophen 5-325 Mg Tab) 1 each PO Q6H PRN PRN Reason: Pain, Moderate (4-6) Divalproex Sodium (Divalproex Dr 250 Mg Tab) 250 mg PO DAILY@1700 [facility] Last Admin: 09/07/20 18:57 Dose: 250 mg Documented by: Divalproex Sodium (Divalproex Dr 500 Mg Tab) 1,500 mg PO QHS [facility] Last Admin: 09/07/20 21:53 Dose: 1,500 mg Documented by: Hydromorphone HCl (Hydromorphone 1 Mg/1 Ml Inj) 0.5 mg IV Q3H PRN PRN Reason: Pain , Severe (7-10) Sodium Chloride (Nacl 0.9%) 100 mls @ 999 mls/hr IV BIANCA PRN PRN Reason: Hypotension Sodium Chloride (Nacl 0.9% 500 Ml) 500 mls @ 0 mls/hr IV ONCE [facility] Stop: 09/08/20 18:00 Lorazepam (Lorazepam 1 Mg Tab) 1 mg PO BID [facility] Last Admin: 09/08/20 09:39 Dose: 1 mg Documented by: Memantine (Memantine 5 Mg Tab) 5 mg PO QDAY [facility] Last Admin: 09/08/20 09:41 Dose: 5 mg Documented by: Midodrine (Midodrine 5 Mg Tab) 10 mg PO TID@0800,1200,1600 [facility] Last Admin: 09/08/20 09:39 Dose: 10 mg Documented by: Ondansetron HCl (Ondansetron 4 Mg/2 Ml Inj) 4 mg IV Q8H PRN PRN Reason: Nausea And Vomiting Pantoprazole Sodium (Pantoprazole 40 Mg Tab) 40 mg PO BID [facility] Last Admin: 09/08/20 09:39 Dose: 40 mg Documented by: Quetiapine Fumarate (Quetiapine 200 Mg Tab) 400 mg PO BID [facility] Last Admin: 09/08/20 09:39 Dose: 400 mg Documented by: Sevelamer Carbonate (Sevelamer Carbonate 800 Mg Tab) 800 mg PO TIDWM [facility] Last Admin: 09/08/20 09:41 Dose: 800 mg Documented by: Sodium Chloride (Sodium Chloride 0.9% 10 Ml Flush Syringe) 10 ml IV BID [facility] Last Admin: 09/08/20 09:41 Dose: 10 ml Documented by: Sodium Chloride (Sodium Chloride 0.9% 10 Ml Flush Syringe) 10 ml IV PRN PRN PRN Reason: LINE FLUSH Valproic Acid (Valproic Acid 250 Mg/5 Ml Oral Liqd) 500 mg PO DAILY [facility] Last Admin: 09/08/20 09:41 Dose: 500 mg Documented by: Review of Systems ROS unobtainable: due to mental status (confused) Physical Examination Vital Signs Pulse Ox 99 09/02/20 11:41 General appearance: other (lethargic) HEENT: Positive: PERRL, Mucus Membranes Moist Cardiac: Positive: Reg Rate and Rhythm, S1/S2 Lungs: Positive: Decreased Breath Sounds Neuro: Positive: Other (lethargic ) Abdomen: Negative: Tender Skin: Negative: Rash Musculoskeletal: No Pain Extremities: Absent: edema Results 09/08/20 04:58 09/08/20 04:58 Cardiac Enzymes 09/08/20 Range/Units 04:58 AST 29 (5-40) units/L CBC 09/08/20 Range/Units 04:58 Hgb 6.2 L (10.1-14.3) gm/dl Hct 19.8 L* (30.3-42.9) % Plt Count 150 (140-440) K/mm3 Comprehensive Metabolic Panel 09/08/20 Range/Units 04:58 Sodium 140 (137-145) mmol/L Potassium 3.4 L (3.6-5.0) mmol/L Chloride 100.4 (98-107) mmol/L Carbon Dioxide 27 (22-30) mmol/L BUN 32 H (7-17) mg/dL Creatinine 4.5 H (0.6-1.2) mg/dL Glucose 93 (65-100) mg/dL Calcium 9.4 (8.4-10.2) mg/dL AST 29 (5-40) units/L ALT 28 (7-56) units/L Alkaline Phosphatase 176 H (35-129) units/L Total Protein 5.5 L (6.3-8.2) g/dL Albumin 2.1 L (3.9-5) g/dL - Imaging and Cardiology EKG: report reviewed, image reviewed EKG interpretations - Telemetry EKG Rhythm: Sinus Rhythm - EKG Sinus rhythms and dysrhythmias: sinus rhythm Assessment and Plan Cardiology consulted for YAZMIN. Due to pt's AMS, indications, potential risks and benefits of YAZMIN reviewed with pt's son via telephone and he agrees to proceed with YAZMIN today. Await findings. The patient has been seen in conjunction with Dr. Garcia who agrees with the a ssessment and plan of care. - Patient Problems (1) Sepsis Current Visit: Yes Status: Acute (2) Bacteremia Current Visit: Yes Status: Acute (3) ESRD (end stage renal disease) on dialysis Current Visit: Yes Status: Chronic (4) Transaminitis Current Visit: Yes Status: Acute (5) Altered mental status Current Visit: Yes Status: Acute (6) Anemia Current Visit: Yes Status: Acute (7) Schizophrenia Current Visit: Yes Status: Chronic Qualifiers: Schizophrenia type: unspecified Qualified Code(s): F20.9 - Schizophrenia, unspecified
--- NOTE | 2020-09-08 13:56 | Progress Note ---
Assessment and Plan Cultures: 09/02/2020 blood culture: MRSA 09/04/2020 blood culture: MRSA 09/05/2020 blood culture: MRSA 09/07/2020 blood culture: In process Assessment: 65 years old female with history of end-stage renal disease on hemodialysis, hypertension, schizophrenia, previous malfunctional HD access, PermCath exchange in 2019, admitted on 09/02/2020 secondary to altered mental status, confusion and shortness of breath: #Severe sepsis: secondary to bacteremia, chest x-ray unremarkable. SARS-CoV-2 PCR negative. #MRSA bacteremia: Likely secondary to PermCath infection. No obvious wounds. PermCath was removed on 09/04/2020. TTE without obvious valvular vegetations. #End-stage renal disease: On hemodialysis. Renally dose antibiotics. #Transaminitis: Likely secondary to sepsis. #Elevated D-dimer: SARS-CoV-2 PCR negative. Likely reactive. VQ scan with low probability for PE. #Acute encephalopathy: Likely secondary to sepsis. MRI brain, showed no acute infarction. Showed cerebral atrophy. Recommendations: -f/u JAYDEN and blood cultures -Continue IV vancomycin, renally dosed -need blood cultures negative for at least 48 hours before we can proceed with PermCath placement Gloria Cardenas MD, FACP [facility] O: [phone] F: [phone] Subjective Date of service: 09/08/20 Principal diagnosis: Bacteremia Interval history: No fever. Poor historian. Had MRI brain, showed no acute infarction. Showed cerebral atrophy Objective - Exam Narrative Exam: Physical Exam: Constitutional: Sleepy. No acute distress Head, Ears, Nose: Normocephalic, atraumatic. External ears, nose normal Eyes: Conjunctivae/corneas clear. No icterus. No ptosis. Neck: Supple, no meningeal signs. Left-sided dialysis catheter present Cardiovascular: S1, S2 normal. Respiratory: Good air entry, clear to auscultation bilaterally GI: Soft, non-tender; bowel sounds normal. No peritoneal signs Musculoskeletal: No pedal edema, no cyanosis. Skin: No rash or abscess Hem/Lymphatic: No palpable cervical or supraclavicular nodes. No lymphangitis Psych: Drowsy Neurological: Sleepy but easily awakened - Constitutional Vitals: Vital Signs Temp Pulse Resp BP Pulse Ox 98.6 F 95 H 17 110/48 96 09/08/20 05:23 09/08/20 05:23 09/08/20 05:23 09/08/20 05:23 09/08/20 05:23 Temperature -Last 24 Hours Temperature 98.6 F Temperature 99.4 F Temperature 99.0 F - Labs CBC & Chem 7: 09/08/20 04:58 09/08/20 04:58 Labs: Abnormal lab results 09/08/20 09/08/20 Range/Units 04:58 04:58 Hgb 6.2 L (10.1-14.3) gm/dl Hct 19.8 L* (30.3-42.9) % Potassium 3.4 L (3.6-5.0) mmol/L BUN 32 H (7-17) mg/dL Creatinine 4.5 H (0.6-1.2) mg/dL Alkaline Phosphatase 176 H (35-129) units/L Total Protein 5.5 L (6.3-8.2) g/dL Albumin 2.1 L (3.9-5) g/dL
[2020-09-08] MEDS ORDERED: BENZOCAINE 20% TOP SPRAY 0.5 ML UNIT DOSE MM NR (14:00)
[2020-09-08] MEDS ORDERED: SODIUM CHLORIDE 0.9% 1000 ML 1,000 ML IV SCH (14:00)
--- NOTE | 2020-09-08 15:06 | Progress Note ---
Assessment and Plan --Sepsis -Blood culture showed staph aureus. -Repeat BC 09/04 - NTD -Source of infection likely permacath. Vascular surgery consulted for permacath removal and this has been removed and replaced with vascath. -Continue IV antibiotics -ID recs appreciated --Staph bacteremia/MRSA Continue antibiotics Blood culture repeat sent on 09/04, 09/05 and positive Resent Cx today Echocardiogram showed no vegetation JAYDEN planned for today --Transaminitis As result of ongoing systemic infection Continue to trend --Acute metabolic encephalopathy -Resolved --Elevated D-dimer V/Q showed low probability of PE COVID-19 ruled out --ESRD Hemodialysis as scheduled Plan for catheter placement is blood culture is negative for 48 hours. Vascular and nephrology on board. --DVT prophylaxis Heparin products Brief History; 65-year-old female who is a resident of [facility] with history of end-stage renal disease on dialysis, hypertension, bipolar, anxiety, schizophrenia, and GERD who presents to [facility] ED via EMS with complaints of altered mental status, and difficulty breathing. Patient is unable to p rovide history. History is provided by medical report and review of records. Per jail staff patient's mentation was altered and displayed difficulty breathing and so she was sent to the ED for further evaluation and treatment. While in the ED patient was noted to be febrile with T-max 102.8, and hypoxic on room air. Here patient had a blood culture. Started on IV antibiotics. Was placed on oxygen supplementation. Coronavirus test ordered and was negative. 09/03. Blood culture growing staph aureus. ID on board. Patient has a permacath on the right chest through which she gets hemodialysis. Vascular surgery consulted for removal of catheter. Echocardiogram ordered to rule out endocarditis 09/04. More awake today. Has no complaints. Maintained on antibiotics. Echocardiogram pending. Vascular surgery consulted for removal of permacath. 09/05. Febrile overnight. Catheter removed by vascular. On IV vancomycin. ID following. BC 09/04 remains NTD. Plan for placement of catheter per vascular and ID. 09/06: No fever in the last 24 hours. If remains afebrile by a.m. we will proceed with placement of permacath per vascular. Continue current management at this time. 09/07: s/p perm cath placement yesterday. cont current Mx. -Blood cultures positive again, repeat ordered, ID recommended JAYDEN and given encephalopathy, MRI brain without contrast ordered, rule out septic emboli to the brain. will need abx set up with HD on discharge. CM consulted 09/08; MRI brain showed no acute process. f/u JAYDEN and repeat blood cultures, Continue IV vancomycin, renally dosed. need blood cultures negative for at least 48 hours before we can proceed with PermCath placement Subjective Date of service: 09/08/20 Principal diagnosis: Bacteremia Interval history: Patient seen and examined no acute issue o/n denies any SOB or chest pain s/p JAYDEN today MRI brain showed no acute changes Objective - Exam Narrative Exam: GENERAL: Awake HEAD: No signs of head trauma. EYES: Pupils are equal. Extraocular motions intact. MOUTH: Oropharynx is normal. NECK: No adenopathy, no JVD. CHEST: Chest with diminished breath sounds bilaterally. No wheezes, rales, or rhonchi. CARDIAC: normal S1 and S2, without murmurs, gallops, or rubs. ABDOMEN: Soft, non tender and non distended. No rebound or guarding, and no masses palpated. Bowel Sounds normal. MUSCULOSKELETAL: Edema NEUROLOGIC EXAM: Alert and oriented. No focal neurologic deficits SKIN: No obvious lesions - Constitutional Vitals: Vital Signs - 12hr 09/08/20 05:23 Temperature 98.6 F Pulse Rate 95 H Respiratory 17 Rate Blood Pressure 110/48 O2 Sat by Pulse 96 Oximetry - Labs CBC & Chem 7: 09/10/20 04:17 09/09/20 05:45 Labs: Abnormal lab results 09/08/20 09/08/20 Range/Units 04:58 04:58 Hgb 6.2 L (10.1-14.3) gm/dl Hct 19.8 L* (30.3-42.9) % Potassium 3.4 L (3.6-5.0) mmol/L BUN 32 H (7-17) mg/dL Creatinine 4.5 H (0.6-1.2) mg/dL Alkaline Phosphatase 176 H (35-129) units/L Total Protein 5.5 L (6.3-8.2) g/dL Albumin 2.1 L (3.9-5) g/dL HEART Score - HEART Score EKG: Normal Age: > 65
--- NOTE | 2020-09-08 15:26 | Anesthesia Consultation ---
Anesthesia Consult and Med Hx Date of service: 09/08/20 - Airway Anesthetic Teeth Evaluation: Poor ROM Head & Neck: Adequate Mental/Hyoid Distance: Inadequate Mallampati Class: Class III Intubation Access Assessment: Possibly Difficult - Pulmonary Exam CTA: Yes - Cardiac Exam Cardiac Exam: RRR - Pre-Operative Health Status ASA Pre-Surgery Classification: ASA3 Proposed Anesthetic Plan: MAC - Pulmonary SOB: Yes ( RA to 2L NC while inpatient) Hx Pneumonia: Yes (2/2 bacteremia. COVID neg this admission) - Cardiovascular System Hx Hypertension: Yes Hx Heart Attack/AMI: No Hx Cardia Arrhythmia: No - Central Nervous System Hx Seizures: Yes CVA: No Hx Psychiatric Problems: Yes (encephalopathy) - Gastrointestinal Hx Gastroesophageal Reflux Disease: Yes - Endocrine Hx End Stage Renal Disease: Yes (last HD today ) - Hematic Hx Anemia: Yes - Additional Comments Anesthesia Medical History Comments: Patient with bacteremia 2/2 infected perm cath. Scheduled for JAYDEN to evaluate for endocarditis. Anesthesia consent obtained from Raymundo Randolph (son).
--- NOTE | 2020-09-08 15:26 | Anesthesia Day of Surgery ---
Anesthesia Day of Surgery - Day of Surgery Patient Examined: Yes Patient H&P Reviewed: Yes Patient is NPO: Yes (last intake (apple sauce) 0800)
[2020-09-08] MEDS: DIVALPROEX DR 250 MG TAB PO SCH (17:00)
--- NOTE | 2020-09-08 18:26 | Progress Note ---
Assessment and Plan Impression: * End stage renal disease * Sepsis * Catheter associated bacteremia --Blood cx: MRSA --Permcath removal (Sep 04), s/p vasc-cath placement (09/06) * Acute encephalopathy * Anemia secondary to ESRD * Secondary hyperparathyroidism * Schizophrenia Plan: * Seen on hemodialysis today * Continue midodrine daily * Hold permacath placement as cultures resulted positive * Cardiology note reviewed and JAYDEN findings noted * Abx per ID * ID note/plan reviewed * Medical management of electrolytes * Dose medications for renal function * Epogen TIW prn * Renal diet Subjective Date of service: 09/08/20 Principal diagnosis: Bacteremia Interval history: Patient was seen for her renal issues Nursing, interdisciplinary and consult notes were reviewed Vitals, input and output, medications and labs were reviewed Seen during hemodialysis Tolerating without any complications Appears more alert today Objective - Exam Narrative Exam: Constitutional: No acute distress Head: Normocephalic/atraumatic Neck: Supple Lungs: Clear to auscultation bilaterally Cardiovascular: RRR, no M/R/G Abdomen: Soft, nontender, NABS Back, nontender Extremities: No edema, pulses within normal limits Skin: Intact, no rash Neuro: Awake and alert - Vital Signs Vital signs: Vital Signs - 12hr 09/08/20 09/08/20 09/08/20 14:40 15:05 15:20 Temperature [ 99.3 F Post-Procedure] Pulse Rate [ 102 H 104 H Post-Procedure] Pulse Rate [Pre 92 H -Procedure] Respiratory 15 24 Rate [Post- Procedure] Respiratory 18 Rate [Pre- Procedure] Blood Pressure 107/58 111/59 [Post-Procedure ] Blood Pressure 133/63 [Pre-Procedure] O2 Sat by Pulse Oximetry O2 Sat by Pulse 100 100 Oximetry [Post -Procedure] O2 Sat by Pulse 99 Oximetry [Pre- Procedure] 09/08/20 09/08/20 09/08/20 15:35 15:50 17:00 Temperature [ Post-Procedure] Pulse Rate [ 81 60 Post-Procedure] Pulse Rate [Pre -Procedure] Respiratory 22 22 Rate [Post- Procedure] Respiratory Rate [Pre- Procedure] Blood Pressure 116/57 112/60 [Post-Procedure ] Blood Pressure [Pre-Procedure] O2 Sat by Pulse 95 Oximetry O2 Sat by Pulse 100 97 Oximetry [Post -Procedure] O2 Sat by Pulse Oximetry [Pre- Procedure] - Lab 09/08/20 04:58 09/08/20 04:58 Most recent lab results Calcium 9.4 mg/dL (8.4-10.2) 09/08/20 04:58 Medications & Allergies - Medications Allergies/Adverse Reactions: Allergies Penicillins Allergy (Verified 03/15/20 07:07) Rash corn Adverse Reaction (Verified 03/15/20 07:07) Unknown Home Medications: Home Medications Medication Instructions Recorded Confirmed Last Taken Type Acetaminophen [Acetaminophen TAB] 650 mg PO Q4H PRN tablet 06/03/19 09/02/20 09/02/20 Rx LORazepam [Ativan] 1 mg PO BID 08/20/19 09/02/20 03/28/20 17:00 History Memantine Xr [Namenda Xr] 5 mg PO DAILY 08/20/19 09/02/20 03/28/20 09:00 History Midodrine [Proamatine] 10 mg PO TID 08/20/19 09/02/20 03/28/20 17:00 History QUEtiapine [SEROquel] 400 mg PO BID 08/20/19 09/02/20 03/28/20 20:00 History Pantoprazole [Protonix TAB] 40 mg PO BID tablet 10/12/19 09/02/20 03/28/20 17:00 Rx HYDROcodone/APAP 5-325 [[place] 1 each PO Q6H PRN #24 tablet 03/29/20 09/02/20 Unknown Rx 5-325 mg TAB] Divalproex Sprinkle 1,500 mg PO QHS 09/02/20 09/02/20 Unknown History Divalproex Sprinkle [DepaKOTE 250 mg PO ONCE 09/02/20 09/02/20 Unknown History SPRINKLE] Sevelamer Carbonate [Renvela] 0.8 gram PO TIDWM 09/02/20 09/02/20 Unknown History VALPROIC ACID Liq [DepaKENE Liq] 500 mg PO DAILY 09/02/20 09/02/20 Unknown History Active Medications: Generic Name Dose Route Start Last Admin Trade Name Freq PRN Reason Stop Dose Admin Acetaminophen 650 mg 09/02/20 19:55 09/03/20 23:53 Acetaminophen 325 Mg Tab PO 650 mg Q4H PRN Administration Pain MILD(1-3)/Fever >100.5/DRAKE Hydrocodone Bitart/Acetaminophen 1 each 09/02/20 19:55 Hydrocodone/Acetaminophen 5-325 Mg Tab PO Q6H PRN Pain, Moderate (4-6) Benzocaine 3 spray 09/08/20 14:00 09/08/20 14:40 Benzocaine 20% [place] 0.5 Ml Unit Dose MM 09/08/20 23:00 3 spray PREOP NR Administration Divalproex Sodium 250 mg 09/04/20 17:00 09/07/20 18:[address] 250 Mg Tab PO 250 mg DAILY@1700 CONNOR Administration Divalproex Sodium 1,500 mg 09/04/20 22:00 09/07/20 21:[address] 500 Mg Tab PO 1,500 mg QHS CONNOR Administration Hydromorphone HCl 0.5 mg 09/02/20 19:59 Hydromorphone 1 Mg/1 Ml Inj IV Q3H PRN Pain , Severe (7-10) Sodium Chloride 100 mls @ 999 mls/hr 09/03/20 11:55 Nacl 0.9% IV BIANCA PRN Hypotension Sodium Chloride 1,000 mls @ 42 mls/hr 09/08/20 14:00 Nacl 0.9% 1000 Ml IV 09/09/20 13:49 DIRECT CONNOR Vancomycin HCl 1 gm in 250 mls @ 167.007 mls/hr 09/08/20 22:00 Vancomycin/Ns 1 Gm/250 Ml IV 09/08/20 23:29 ONCE ONE Lorazepam 1 mg 09/02/20 22:00 09/08/20 09:39 Lorazepam 1 Mg Tab PO 1 mg BID CONNOR Administration Memantine 5 mg 09/03/20 10:00 09/08/20 09:41 Memantine 5 Mg Tab PO 5 mg QDAY CONNOR Administration Midodrine 10 mg 09/02/20 20:00 09/08/20 09:39 Midodrine 5 Mg Tab PO 10 mg TID@0800,1200,1600 CONNOR Administration Ondansetron HCl 4 mg 09/02/20 19:59 Ondansetron 4 Mg/2 Ml Inj IV Q8H PRN Nausea And Vomiting Pantoprazole Sodium 40 mg 09/02/20 22:00 09/08/20 09:39 Pantoprazole 40 Mg Tab PO 40 mg BID CONNOR Administration Quetiapine Fumarate 400 mg 09/02/20 22:00 09/08/20 09:39 Quetiapine 200 Mg Tab PO 400 mg BID CONNOR Administration Sevelamer Carbonate 800 mg 09/03/20 08:00 09/08/20 09:41 Sevelamer Carbonate 800 Mg Tab PO 800 mg TIDWM CONNOR Administration Sodium Chloride 10 ml 09/02/20 22:00 09/08/20 09:41 Sodium Chloride 0.9% 10 Ml Flush Syringe IV 10 ml BID CONNOR Administration Sodium Chloride 10 ml 09/02/20 19:59 Sodium Chloride 0.9% 10 Ml Flush Syringe IV PRN PRN LINE FLUSH Valproic Acid 500 mg 09/03/20 10:00 09/08/20 09:41 Valproic Acid 250 Mg/5 Ml Oral Liqd PO 500 mg DAILY CONNOR Administration
[2020-09-08] MEDS ORDERED: SODIUM CHLORIDE 0.9% 500 ML 500 ML ONE (20:58)
[2020-09-08] MEDS: DIVALPROEX DR 500 MG TAB PO SCH (21:16)
[2020-09-08] MEDS ORDERED: VANCOMYCIN/NS 1 GM/250 ML 1 GM/250 ML BAG IV ONE (22:00)
[2020-09-09 06:36] LABS: Albumin 2.3 g/dL (3.9-5); Calcium 9.1 mg/dL (8.4-10.2)
[2020-09-09] MEDS: SEVELAMER CARBONATE 800 MG TAB PO SCH ×3 (11:58→17:03)
[2020-09-09] MEDS: MIDODRINE 5 MG TAB PO SCH ×3 (11:59→17:02)
[2020-09-09] MEDS: MEMANTINE 5 MG TAB PO SCH (11:59)
[2020-09-09] MEDS: VALPROIC ACID 250 MG/5 ML ORAL LIQD PO SCH (12:00)
[2020-09-09] MEDS: PANTOPRAZOLE 40 MG TAB PO SCH ×2 (12:01→22:45)
[2020-09-09] MEDS: QUEtiapine 200 MG TAB PO SCH ×2 (12:01→22:45)
[2020-09-09] MEDS: LORazepam 1 MG TAB PO SCH ×2 (12:40→22:46)
[2020-09-09 14:04] LABS: Hemoglobin 8.2 gm/dl (10.1-14.3)
--- NOTE | 2020-09-09 14:45 | Progress Note ---
Assessment and Plan Cultures: 09/02/2020 blood culture: MRSA 09/04/2020 blood culture: MRSA 09/05/2020 blood culture: MRSA 09/07/2020 blood culture: no growth thus far Assessment: 65 years old female with history of end-stage renal disease on hemodialysis, hypertension, schizophrenia, previous malfunctional HD access, PermCath exchange in 2019, admitted on 09/02/2020 secondary to altered mental status, confusion and shortness of breath: #Severe sepsis: secondary to bacteremia, chest x-ray unremarkable. SARS-CoV-2 PCR negative. #MRSA bacteremia: Likely secondary to PermCath infection. No obvious wounds. PermCath was removed on 09/04/2020. TTE without obvious valvular vegetations. JAYDEN with normal lv size and function, no vegetation on mitral , aortic or tricuspid or pulmonary, but a echo density in right atrium close to eustachian valve, d/w cardiology. ?old thrombus from previous HD cath. Hence, will treat for 6 weeks from bacteremia clearance. MRI brain negative for septic emboli. #End-stage renal disease: On hemodialysis. Renally dose antibiotics. #Transaminitis: Likely secondary to sepsis. #Elevated D-dimer: SARS-CoV-2 PCR negative. Likely reactive. VQ scan with low probability for PE. #Acute encephalopathy: Likely secondary to sepsis. MRI brain, showed no acute infarction. Showed cerebral atrophy. Recommendations: -Continue IV vancomycin, renally dosed x 6 weeks ending 10/19/2020 -blood cultures are negative for ~ 48 hours, hence from ID standpoint we can proceed with PermCath placement -CM orders placed for abx at dialysis Gloria Cardenas MD, FACP [facility] ([facility]) O: [phone] F: [phone] Subjective Date of service: 09/09/20 Principal diagnosis: Bacteremia Interval history: No fever. Seems more awake today, answering basic questions, states she doesn't want to be bothered. Objective - Exam Narrative Exam: Physical Exam: Constitutional: more awake, responsive, No acute distress Head, Ears, Nose: Normocephalic, atraumatic. External ears, nose normal Eyes: Conjunctivae/corneas clear. No icterus. No ptosis. Neck: Supple, no meningeal signs. Left-sided dialysis catheter present Cardiovascular: S1, S2 normal. Respiratory: Good air entry, clear to auscultation bilaterally GI: Soft, non-tender; bowel sounds normal. No peritoneal signs Musculoskeletal: No pedal edema, no cyanosis. Skin: No rash or abscess Hem/Lymphatic: No palpable cervical or supraclavicular nodes. No lymphangitis Psych: no agitation Neurological: more awake, responsive - Constitutional Vitals: Vital Signs Temp Pulse Resp BP Pulse Ox 98.3 F 85 20 113/63 98 09/09/20 11:00 09/09/20 11:00 09/09/20 11:00 09/09/20 11:00 09/09/20 11:00 Temperature -Last 24 Hours Temperature [Post-Procedure] 99.3 F Temperature 98.3 F Temperature 98 F Temperature 99 F Temperature 99 F Temperature 98.9 F Temperature 98.2 F Temperature 98.2 F Temperature 97.8 F Temperature 98.3 F Temperature 97.8 F Temperature 97.8 F Temperature 97.1 F - Labs CBC & Chem 7: 09/09/20 13:47 09/09/20 05:45 Labs: Abnormal lab results 09/08/20 09/09/20 09/09/20 Range/Units 18:48 05:45 13:47 Hgb 8.2 L (10.1-14.3) gm/dl Hct 26.0 L D (30.3-42.9) % Potassium 3.3 L (3.6-5.0) mmol/L Carbon Dioxide 31 H (22-30) mmol/L Creatinine 3.1 H (0.6-1.2) mg/dL Alkaline Phosphatase 182 H (35-129) units/L Total Protein 5.7 L (6.3-8.2) g/dL Albumin 2.3 L (3.9-5) g/dL Crossmatch See Detail
--- NOTE | 2020-09-09 17:02 | Progress Note ---
Assessment and Plan Impression: * End stage renal disease * Sepsis * Catheter associated bacteremia --Blood cx: MRSA --Permcath removal (Sep 04), s/p vasc-cath placement (09/06) * Acute encephalopathy * Anemia secondary to ESRD * Secondary hyperparathyroidism * Schizophrenia Plan: * Plan for hemodialysis tomorrow * Continue midodrine daily * Ok for permacath placement as cultures resulted positive * Cardiology note reviewed and JAYDEN findings noted * Abx per ID * ID note/plan reviewed * Medical management of electrolytes * Dose medications for renal function * Epogen TIW prn * Renal diet Subjective Date of service: 09/09/20 Principal diagnosis: Bacteremia Interval history: Patient was seen for her renal issues Nursing, interdisciplinary and consult notes were reviewed Vitals, input and output, medications and labs were reviewed Awake, conversant Objective - Exam Narrative Exam: Constitutional: No acute distress Head: Normocephalic/atraumatic Neck: Supple Lungs: Clear to auscultation bilaterally Cardiovascular: RRR, no M/R/G Abdomen: Soft, nontender, NABS Back, nontender Extremities: No edema, pulses within normal limits Skin: Intact, no rash Neuro: Awake and alert - Vital Signs Vital signs: Vital Signs - 12hr 09/09/20 09/09/20 09/09/20 06:36 07:01 07:31 Temperature 98.3 F 98.2 F 98.2 F Pulse Rate 94 H 89 89 Respiratory 18 18 18 Rate Blood Pressure 84/43 101/54 101/54 O2 Sat by Pulse 94 94 Oximetry 09/09/20 09/09/20 09/09/20 08:01 08:29 08:31 Temperature 98.9 F 99 F Pulse Rate 84 87 Respiratory 18 18 Rate Blood Pressure 101/56 113/68 O2 Sat by Pulse 98 100 99 Oximetry 09/09/20 09/09/20 09/09/20 09:01 09:35 11:00 Temperature 99 F 98 F 98.3 F Pulse Rate 85 84 85 Respiratory 18 20 20 Rate Blood Pressure 107/55 94/48 113/63 O2 Sat by Pulse 99 100 98 Oximetry 09/09/20 15:04 Temperature Pulse Rate Respiratory Rate Blood Pressure O2 Sat by Pulse 98 Oximetry - Lab 09/09/20 13:47 09/09/20 05:45 Most recent lab results Calcium 9.1 mg/dL (8.4-10.2) 09/09/20 05:45 Medications & Allergies - Medications Allergies/Adverse Reactions: Allergies Penicillins Allergy (Verified 03/15/20 07:07) Rash corn Adverse Reaction (Verified 03/15/20 07:07) Unknown Home Medications: Home Medications Medication Instructions Recorded Confirmed Last Taken Type Acetaminophen [Acetaminophen TAB] 650 mg PO Q4H PRN tablet 06/03/19 09/02/20 09/02/20 Rx LORazepam [Ativan] 1 mg PO BID 08/20/19 09/02/20 03/28/20 17:00 History Memantine Xr [Namenda Xr] 5 mg PO DAILY 08/20/19 09/02/20 03/28/20 09:00 History Midodrine [Proamatine] 10 mg PO TID 08/20/19 09/02/20 03/28/20 17:00 History QUEtiapine [SEROquel] 400 mg PO BID 08/20/19 09/02/20 03/28/20 20:00 History Pantoprazole [Protonix TAB] 40 mg PO BID tablet 10/12/19 09/02/20 03/28/20 17:00 Rx HYDROcodone/APAP 5-325 [[place] 1 each PO Q6H PRN #24 tablet 03/29/20 09/02/20 Unknown Rx 5-325 mg TAB] Divalproex Sprinkle 1,500 mg PO QHS 09/02/20 09/02/20 Unknown History Divalproex Sprinkle [DepaKOTE 250 mg PO ONCE 09/02/20 09/02/20 Unknown History SPRINKLE] Sevelamer Carbonate [Renvela] 0.8 gram PO TIDWM 09/02/20 09/02/20 Unknown History VALPROIC ACID Liq [DepaKENE Liq] 500 mg PO DAILY 09/02/20 09/02/20 Unknown His tory Active Medications: Generic Name Dose Route Start Last Admin Trade Name Freq PRN Reason Stop Dose Admin Acetaminophen 650 mg 09/02/20 19:55 09/03/20 23:53 Acetaminophen 325 Mg Tab PO 650 mg Q4H PRN Administration Pain MILD(1-3)/Fever >100.5/DRAKE Hydrocodone Bitart/Acetaminophen 1 each 09/02/20 19:55 Hydrocodone/Acetaminophen 5-325 Mg Tab PO Q6H PRN Pain, Moderate (4-6) Divalproex Sodium 250 mg 09/04/20 17:00 09/08/20 17:[address] 250 Mg Tab PO Not Given DAILY@1700 [facility] Divalproex Sodium 1,500 mg 09/04/20 22:00 09/08/20 21:[address] 500 Mg Tab PO 1,500 mg QHS CONNOR Administration Hydromorphone HCl 0.5 mg 09/02/20 19:59 Hydromorphone 1 Mg/1 Ml Inj IV Q3H PRN Pain , Severe (7-10) Sodium Chloride 100 mls @ 999 mls/hr 09/03/20 11:55 Nacl 0.9% IV BIANCA PRN Hypotension Lorazepam 1 mg 09/02/20 22:00 09/09/20 12:40 Lorazepam 1 Mg Tab PO Not Given BID CONNOR Memantine 5 mg 09/03/20 10:00 09/09/20 11:59 Memantine 5 Mg Tab PO 5 mg QDAY [facility] Administration Midodrine 10 mg 09/02/20 20:00 09/09/20 12:39 Midodrine 5 Mg Tab PO Not Given TID@0800,1200,1600 [facility] Ondansetron HCl 4 mg 09/02/20 19:59 Ondansetron 4 Mg/2 Ml Inj IV Q8H PRN Nausea And Vomiting Pantoprazole Sodium 40 mg 09/02/20 22:00 09/09/20 12:01 Pantoprazole 40 Mg Tab PO 40 mg BID CONNOR Administration Quetiapine Fumarate 400 mg 09/02/20 22:00 09/09/20 12:01 Quetiapine 200 Mg Tab PO 400 mg BID CONNOR Administration Sevelamer Carbonate 800 mg 09/03/20 08:00 09/09/20 12:39 Sevelamer Carbonate 800 Mg Tab PO Not Given TIDWM CONNOR Sodium Chloride 10 ml 09/02/20 22:00 09/09/20 12:02 Sodium Chloride 0.9% 10 Ml Flush Syringe IV 10 ml BID CONNOR Administration Sodium Chloride 10 ml 09/02/20 19:59 Sodium Chloride 0.9% 10 Ml Flush Syringe IV PRN PRN LINE FLUSH Valproic Acid 500 mg 09/03/20 10:00 09/09/20 12:00 Valproic Acid 250 Mg/5 Ml Oral Liqd PO 500 mg DAILY CONNOR Administration
[2020-09-09] MEDS: DIVALPROEX DR 250 MG TAB PO SCH (17:03)
--- NOTE | 2020-09-09 17:35 | Progress Note ---
Assessment and Plan --Sepsis -Blood culture showed staph aureus. -Repeat BC 09/04 - NTD -Source of infection likely permacath. Vascular surgery consulted for permacath removal and this has been removed and replaced with vascath. -Continue IV antibiotics -ID recs appreciated --Staph bacteremia/MRSA Continue antibiotics Blood culture repeat sent on 09/04, 09/05 and positive Resent Cx on 09/07 2d Echocardiogram and JAYDEN showed no vegetation --Transaminitis As result of ongoing systemic infection Continue to trend --Acute metabolic encephalopathy -Resolved --Elevated D-dimer V/Q showed low probability of PE COVID-19 ruled out --ESRD Hemodialysis as scheduled Plan for catheter placement is blood culture is negative for 48 hours. Vascular and nephrology on board. --DVT prophylaxis Heparin products Brief History; 65-year-old female who is a resident of [facility] with history of end-stage renal disease on dialysis, hypertension, bipolar, anxiety, schizophrenia, and GERD who presents to [facility] ED via EMS with complaints of altered mental status, and difficulty breathing. Patient is unable to provide history. History is provided by medical report and review of records. Per fdc staff patient's mentation was altered and displayed difficulty breathing and so she was sent to the ED for further evaluation and treatment. While in the ED patient was noted to be febrile with T-max 102.8, and hypoxic on room air. Here patient had a blood culture. Started on IV antibiotics. Was placed on oxygen supplementation. Coronavirus test ordered and was negative. 09/03. Blood culture growing staph aureus. ID on board. Patient has a permacath on the right chest through which she gets hemodialysis. Vascular surgery consulted for removal of catheter. Echocardiogram ordered to rule out endocarditis 09/04. More awake today. Has no complaints. Maintained on antibiotics. Echocardiogram pending. Vascular surgery consulted for removal of permacath. 09/05. Febrile overnight. Catheter removed by vascular. On IV vancomycin. ID following. BC 09/04 remains NTD. Plan for placement of catheter per vascular and ID. 09/06: No fever in the last 24 hours. If remains afebrile by a.m. we will proceed with placement of permacath per vascular. Continue current management at this time. 09/07: s/p perm cath placement yesterday. cont current Mx. -Blood cultures positive again, repeat ordered, ID recommended JAYDEN and given encephalopathy, MRI brain without contrast ordered, rule out septic emboli to the brain. will need abx set up with HD on discharge. CM consulted 09/08; MRI brain showed no acute process. f/u JAYDEN and repeat blood cultures, Continue IV vancomycin, renally dosed. need blood cultures negative for at least 48 hours before we can proceed with PermCath placement 09/09: blood cultures are negative for ~ 48 hours, of for PermCath placement per ID. Continue IV vancomycin, renally dosed x 6 weeks ending 10/19/2020: CM notified. TTE without obvious valvular vegetations, but a echo density in right atrium close to eustachian valve, d/w cardiology. ?old thrombus from previous HD cath. Hence, planned to treat for 6 weeks from bacteremia clearance. Subjective Date of service: 09/09/20 Principal diagnosis: Bacteremia Interval history: Patient seen and examined no acute issue o/n denies any SOB or chest pain Objective - Exam Narrative Exam: GENERAL: Awake HEAD: No signs of head trauma. EYES: Pupils are equal. Extraocular motions intact. MOUTH: Oropharynx is normal. NECK: No adenopathy, no JVD. CHEST: Chest with diminished breath sounds bilaterally. No wheezes, rales, or rhonchi. CARDIAC: normal S1 and S2, without murmurs, gallops, or rubs. ABDOMEN: Soft, non tender and non distended. No rebound or guarding, and no masses palpated. Bowel Sounds normal. MUSCULOSKELETAL: Edema NEUROLOGIC EXAM: Alert and oriented. No focal neurologic deficits SKIN: No obvious lesions - Constitutional Vitals: Vital Signs - 12hr 09/09/20 09/09/20 09/09/20 06:36 07:01 07:31 Temperature 98.3 F 98.2 F 98.2 F Pulse Rate 94 H 89 89 Respiratory 18 18 18 Rate Blood Pressure 84/43 101/54 101/54 O2 Sat by Pulse 94 94 Oximetry 09/09/20 09/09/20 09/09/20 08:01 08:29 08:31 Temperature 98.9 F 99 F Pulse Rate 84 87 Respiratory 18 18 Rate Blood Pressure 101/56 113/68 O2 Sat by Pulse 98 100 99 Oximetry 09/09/20 09/09/20 09/09/20 09:01 09:35 11:00 Temperature 99 F 98 F 98.3 F Pulse Rate 85 84 85 Respiratory 18 20 20 Rate Blood Pressure 107/55 94/48 113/63 O2 Sat by Pulse 99 100 98 Oximetry 09/09/20 15:04 Temperature Pulse Rate Respiratory Rate Blood Pressure O2 Sat by Pulse 98 Oximetry - Labs CBC & Chem 7: 09/10/20 04:17 09/09/20 05:45 Labs: Abnormal lab results 09/08/20 09/09/20 09/09/20 Range/Units 18:48 05:45 13:47 Hgb 8.2 L (10.1-14.3) gm/dl Hct 26.0 L D (30.3-42.9) % Potassium 3.3 L (3.6-5.0) mmol/L Carbon Dioxide 31 H (22-30) mmol/L Creatinine 3.1 H (0.6-1.2) mg/dL Alkaline Phosphatase 182 H (35-129) units/L Total Protein 5.7 L (6.3-8.2) g/dL Albumin 2.3 L (3.9-5) g/dL Crossmatch See Detail HEART Score - HEART Score EKG: Normal Age: > 65
[2020-09-09] MEDS: DIVALPROEX DR 500 MG TAB PO SCH (22:45)
[2020-09-10 05:10] LABS: Hemoglobin 7.5 gm/dl (10.1-14.3)
[2020-09-10] MEDS: MIDODRINE 5 MG TAB PO SCH ×4 (08:46→17:55)
[2020-09-10] MEDS: SEVELAMER CARBONATE 800 MG TAB PO SCH ×4 (08:46→17:56)
[2020-09-10] MEDS: LORazepam 1 MG TAB PO SCH (09:35)
[2020-09-10] MEDS: MEMANTINE 5 MG TAB PO SCH (14:27)
[2020-09-10] MEDS: VALPROIC ACID 250 MG/5 ML ORAL LIQD PO SCH (14:27)
[2020-09-10] MEDS: PANTOPRAZOLE 40 MG TAB PO SCH (14:28)
[2020-09-10] MEDS: QUEtiapine 200 MG TAB PO SCH (14:28)
[2020-09-10] MEDS ORDERED: VANCOMYCIN/NS 1 GM/250 ML 1 GM/250 ML BAG IV ONE (16:00)
--- NOTE | 2020-09-10 16:37 | Progress Note ---
Assessment and Plan Impression: * End stage renal disease * Sepsis * Catheter associated bacteremia --Blood cx: MRSA --Permcath removal (Sep 04), s/p vasc-cath placement (09/06) * Acute encephalopathy * Anemia secondary to ESRD * Secondary hyperparathyroidism * Schizophrenia Plan: * Status post hemodialysis today, tolerated without any complications. * Continue midodrine daily * Ok for permacath placement as cultures resulted positive * Cardiology note reviewed and JAYDEN findings noted * Abx per ID * ID note/plan reviewed * Medical management of electrolytes * Dose medications for renal function * Epogen TIW prn * Renal diet Subjective Date of service: 09/10/20 Principal diagnosis: Bacteremia Interval history: Patient was seen for her renal issues Nursing, interdisciplinary and consult notes were reviewed Vitals, input and output, medications and labs were reviewed Tolerated dialysis today without any complications Objective - Exam Narrative Exam: Constitutional: No acute distress Head: Normocephalic/atraumatic Neck: Supple Lungs: Clear to auscultation bilaterally Cardiovascular: RRR, no M/R/G Abdomen: Soft, nontender, NABS Back, nontender Extremities: No edema, pulses within normal limits Skin: Intact, no rash Neuro: Awake and alert - Vital Signs Vital signs: Vital Signs - 12hr 09/10/20 09/10/20 04:37 10:00 Temperature 98.6 F Pulse Rate 87 Respiratory 20 18 Rate Blood Pressure 124/60 O2 Sat by Pulse 95 97 Oximetry - Lab 09/10/20 04:17 09/09/20 05:45 Most recent lab results Calcium 9.1 mg/dL (8.4-10.2) 09/09/20 05:45 Medications & Allergies - Medications Allergies/Adverse Reactions: Allergies Penicillins Allergy (Verified 03/15/20 07:07) Rash corn Adverse Reaction (Verified 03/15/20 07:07) Unknown Home Medications: Home Medications Medication Instructions Recorded Confirmed Last Taken Type Acetaminophen [Acetaminophen TAB] 650 mg PO Q4H PRN tablet 06/03/19 09/02/20 09/02/20 Rx LORazepam [Ativan] 1 mg PO BID 08/20/19 09/02/20 03/28/20 17:00 History Memantine Xr [Namenda Xr] 5 mg PO DAILY 08/20/19 09/02/20 03/28/20 09:00 History Midodrine [Proamatine] 10 mg PO TID 08/20/19 09/02/20 03/28/20 17:00 History QUEtiapine [SEROquel] 400 mg PO BID 08/20/19 09/02/20 03/28/20 20:00 History Pantoprazole [Protonix TAB] 40 mg PO BID tablet 10/12/19 09/02/20 03/28/20 17:00 Rx HYDROcodone/APAP 5-325 [Hatley 1 each PO Q6H PRN #24 tablet 03/29/20 09/02/20 Unknown Rx 5-325 mg TAB] Divalproex Sprinkle 1,500 mg PO QHS 09/02/20 09/02/20 Unknown History Divalproex Sprinkle [DepaKOTE 250 mg PO ONCE 09/02/20 09/02/20 Unknown History SPRINKLE] Sevelamer Carbonate [Renvela] 0.8 gram PO TIDWM 09/02/20 09/02/20 Unknown History VALPROIC ACID Liq [DepaKENE Liq] 500 mg PO DAILY 09/02/20 09/02/20 Unknown History Active Medications: Generic Name Dose Route Start Last Admin Trade Name Freq PRN Reason Stop Dose Admin Acetaminophen 650 mg 09/02/20 19:55 09/03/20 23:53 Acetaminophen 325 Mg Tab PO 650 mg Q4H PRN Administration Pain MILD(1-3)/Fever >100.5/DRAKE Hydrocodone Bitart/Acetaminophen 1 each 09/02/20 19:55 Hydrocodone/Acetaminophen 5-325 Mg Tab PO Q6H PRN Pain, Moderate (4-6) Divalproex Sodium 250 mg 09/04/20 17:00 09/09/20 17:[address] 250 Mg Tab PO 250 mg DAILY@1700 CONNOR Administration Divalproex Sodium 1,500 mg 09/04/20 22:00 09/09/20 22:[address] 500 Mg Tab PO 1,500 mg QHS CONNOR Administration Hydromorphone HCl 0.5 mg 09/02/20 19:59 Hydromorphone 1 Mg/1 Ml Inj IV Q3H PRN Pain , Severe (7-10) Sodium Chloride 100 mls @ 999 mls/hr 09/03/20 11:55 Nacl 0.9% IV BIANCA PRN Hypotension Vancomycin HCl 1 gm in 250 mls @ 166.667 mls/hr 09/10/20 16:00 Vancomycin/Ns 1 Gm/250 Ml IV 09/10/20 17:29 ONCE ONE Lorazepam 1 mg 09/02/20 22:00 09/10/20 09:35 Lorazepam 1 Mg Tab PO Not Given BID CONNOR Memantine 5 mg 09/03/20 10:00 09/10/20 14:27 Memantine 5 Mg Tab PO 5 mg QDAY CONNOR Administration Midodrine 10 mg 09/02/20 20:00 09/10/20 14:28 Midodrine 5 Mg Tab PO 10 mg TID@0800,1200,1600 CONNOR Administration Ondansetron HCl 4 mg 09/02/20 19:59 Ondansetron 4 Mg/2 Ml Inj IV Q8H PRN Nausea And Vomiting Pantoprazole Sodium 40 mg 09/02/20 22:00 09/10/20 14:28 Pantoprazole 40 Mg Tab PO 40 mg BID CONNOR Administration Quetiapine Fumarate 400 mg 09/02/20 22:00 09/10/20 14:28 Quetiapine 200 Mg Tab PO 400 mg BID CONNOR Administration Sevelamer Carbonate 800 mg 09/03/20 08:00 09/10/20 13:46 Sevelamer Carbonate 800 Mg Tab PO Not Given TIDWM CONNOR Sodium Chloride 10 ml 09/02/20 22:00 09/10/20 14:28 Sodium Chloride 0.9% 10 Ml Flush Syringe IV 10 ml BID CONNOR Administration Sodium Chloride 10 ml 09/02/20 19:59 Sodium Chloride 0.9% 10 Ml Flush Syringe IV PRN PRN LINE FLUSH Valproic Acid 500 mg 09/03/20 10:00 09/10/20 14:27 Valproic Acid 250 Mg/5 Ml Oral Liqd PO 500 mg DAILY CONNOR Administration
[2020-09-10] MEDS: DIVALPROEX DR 250 MG TAB PO SCH (17:55)
--- NOTE | 2020-09-10 22:12 | Progress Note ---
Assessment and Plan --Sepsis -Blood culture showed staph aureus. -Repeat BC 09/04 - NTD -Source of infection likely permacath. Vascular surgery consulted for permacath removal and this has been removed and replaced with vascath. -Continue IV antibiotics -ID recs appreciated --Staph bacteremia/MRSA Continue antibiotics Blood culture repeat sent on 09/04, 09/05 and positive Resent Cx on 09/07 - Cx neg so far neg 2d Echocardiogram and JAYDEN showed no vegetation --Transaminitis As result of ongoing systemic infection Continue to trend --Acute metabolic encephalopathy -Resolved --Elevated D-dimer V/Q showed low probability of PE COVID-19 ruled out --ESRD Hemodialysis as scheduled Plan for catheter placement is blood culture is negative for 48 hours. Vascular and nephrology on board. --DVT prophylaxis Heparin products Brief History; 65-year-old female who is a resident of [facility] with history of end-stage renal disease on dialysis, hypertension, bipolar, anxiety, schizophrenia, and GERD who presents to [facility] ED via EMS with complaints of altered mental status, and difficulty breathing. Patient is unable to provide history. History is provided by medical report and review of records. Per intermediate staff patient's mentation was altered and displayed difficulty breathing and so she was sent to the ED for further evaluation and treatment. While in the ED patient was noted to be febrile with T-max 102.8, and hypoxic on room air. Here patient had a blood culture. Started on IV antibiotics. Was placed on oxygen supplementation. Coronavirus test ordered and was negative. 09/03. Blood culture growing staph aureus. ID on board. Patient has a permacath on the right chest through which she gets hemodialysis. Vascular surgery consulted for removal of catheter. Echocardiogram ordered to rule out endocarditis 09/04. More awake today. Has no complaints. Maintained on antibiotics. Echocardiogram pending. Vascular surgery consulted for removal of permacath. 09/05. Febrile overnight. Catheter removed by vascular. On IV vancomycin. ID following. BC 09/04 remains NTD. Plan for placement of catheter per vascular and ID. 09/06: No fever in the last 24 hours. If remains afebrile by a.m. we will proceed with placement of permacath per vascular. Continue current management at this time. 09/07: s/p perm cath placement yesterday. cont current Mx. -Blood cultures positive again, repeat ordered, ID recommended JAYDEN and given encephalopathy, MRI brain without contrast ordered, rule out septic emboli to the brain. will need abx set up with HD on discharge. CM consulted 09/08; MRI brain showed no acute process. f/u JAYDEN and repeat blood cultures, Continue IV vancomycin, renally dosed. need blood cultures negative for at least 48 hours before we can proceed with PermCath placement 09/09: blood cultures are negative for ~ 48 hours, of for PermCath placement per ID. Continue IV vancomycin, renally dosed x 6 weeks ending 10/19/2020: CM notified. TTE without obvious valvular vegetations, but a echo density in right atrium close to eustachian valve, d/w cardiology. ?old thrombus from previous HD cath. Hence, planned to treat for 6 weeks from bacteremia clearance. 09/10: s/p HD today. blood cx neg for >48H. need to place perm cath. CM consulted for iv abx with HD. Subjective Date of service: 09/10/20 Principal diagnosis: Bacteremia Interval history: Patient seen and examined no acute issue o/n denies any SOB or chest pain Objective - Exam Narrative Exam: GENERAL: Awake HEAD: No signs of head trauma. EYES: Pupils are equal. Extraocular motions intact. MOUTH: Oropharynx is normal. NECK: No adenopathy, no JVD. CHEST: Chest with diminished breath sounds bilaterally. No wheezes, rales, or rhonchi. CARDIAC: normal S1 and S2, without murmurs, gallops, or rubs. ABDOMEN: Soft, non tender and non distended. No rebound or guarding, and no masses palpated. Bowel Sounds normal. MUSCULOSKELETAL: Edema NEUROLOGIC EXAM: Alert and oriented. No focal neurologic deficits SKIN: No obvious lesions - Constitutional Vitals: Vital Signs - 12hr 09/10/20 09/10/20 09/10/20 10:15 10:30 10:45 Temperature Pulse Rate 71 78 73 Respiratory Rate Blood Pressure 126/63 108/20 111/49 O2 Sat by Pulse Oximetry 09/10/20 09/10/20 09/10/20 11:00 11:15 11:30 Temperature Pulse Rate 83 84 74 Respiratory Rate Blood Pressure 155/58 123/60 117/55 O2 Sat by Pulse Oximetry 09/10/20 09/10/20 09/10/20 11:45 12:00 12:15 Temperature Pulse Rate 75 70 75 Respiratory Rate Blood Pressure 174/50 170/54 130/68 O2 Sat by Pulse Oximetry 09/10/20 09/10/20 09/10/20 12:30 12:45 13:00 Temperature Pulse Rate 67 91 H 72 Respiratory Rate Blood Pressure 150/24 158/78 127/18 O2 Sat by Pulse Oximetry 09/10/20 09/10/20 09/10/20 13:10 13:30 16:04 Temperature 98.6 F 99.1 F Pulse Rate 86 82 97 H Respiratory 18 20 Rate Blood Pressure 144/60 126/19 111/51 O2 Sat by Pulse 88 Oximetry 09/10/20 16:05 Temperature 99.1 F Pulse Rate 54 L Respiratory 20 Rate Blood Pressure O2 Sat by Pulse 98 Oximetry - Labs CBC & Chem 7: 09/10/20 04:17 09/09/20 05:45 Labs: Abnormal lab results 09/10/20 Range/Units 04:17 Hgb 7.5 L (10.1-14.3) gm/dl Hct 23.0 L (30.3-42.9) % HEART Score - HEART Score EKG: Normal Age: > 65
[2020-09-11] MEDS: PANTOPRAZOLE 40 MG TAB PO SCH ×3 (00:54→22:00)
[2020-09-11] MEDS: LORazepam 1 MG TAB PO SCH ×3 (00:54→22:00)
[2020-09-11] MEDS: QUEtiapine 200 MG TAB PO SCH ×3 (00:54→22:00)
[2020-09-11] MEDS: DIVALPROEX DR 500 MG TAB PO SCH ×2 (00:57→21:59)
[2020-09-11 07:26] LABS: Calcium 9.4 mg/dL (8.4-10.2)
[2020-09-11] MEDS: MEMANTINE 5 MG TAB PO SCH (11:11)
[2020-09-11] MEDS: MIDODRINE 5 MG TAB PO SCH ×3 (11:11→18:16)
[2020-09-11] MEDS: VALPROIC ACID 250 MG/5 ML ORAL LIQD PO SCH (11:11)
[2020-09-11] MEDS: SEVELAMER CARBONATE 800 MG TAB PO SCH ×3 (11:11→18:16)
[2020-09-11] MEDS: DIVALPROEX DR 250 MG TAB PO SCH (18:17)
--- NOTE | 2020-09-11 18:23 | Progress Note ---
Assessment and Plan --Sepsis -Blood culture showed staph aureus. -Repeat BC 09/04 - NTD -Source of infection likely permacath. Vascular surgery consulted for permacath removal and this has been removed and replaced with vascath. -Continue IV antibiotics -ID recs appreciated --Staph bacteremia/MRSA Continue antibiotics Blood culture repeat sent on 09/04, 09/05 and positive Resent Cx on 09/07 - Cx neg so far neg 2d Echocardiogram and JAYDEN showed no vegetation --Transaminitis As result of ongoing systemic infection Continue to trend --Acute metabolic encephalopathy -Resolved --Elevated D-dimer V/Q showed low probability of PE COVID-19 ruled out --ESRD Hemodialysis as scheduled Plan for catheter placement is blood culture is negative for 48 hours. Vascular and nephrology on board. --DVT prophylaxis Heparin products Brief History; 65-year-old female who is a resident of [facility] with history of end-stage renal disease on dialysis, hypertension, bipolar, anxiety, schizophrenia, and GERD who presents to [facility] ED via EMS with complaints of altered mental status, and difficulty breathing. Patient is unable to provide history. History is provided by medical report and review of records. Per group home staff patient's mentation was altered and displayed difficulty breathing and so she was sent to the ED for further evaluation and treatment. While in the ED patient was noted to be febrile with T-max 102.8, and hypoxic on room air. Here patient had a blood culture. Started on IV antibiotics. Was placed on oxygen supplementation. Coronavirus test ordered and was negative. 09/03. Blood culture growing staph aureus. ID on board. Patient has a permacath on the right chest through which she gets hemodialysis. Vascular surgery consulted for removal of catheter. Echocardiogram ordered to rule out endocarditis 09/04. More awake today. Has no complaints. Maintained on antibiotics. Echocardiogram pending. Vascular surgery consulted for removal of permacath. 09/05. Febrile overnight. Catheter removed by vascular. On IV vancomycin. ID following. BC 09/04 remains NTD. Plan for placement of catheter per vascular and ID. 09/06: No fever in the last 24 hours. If remains afebrile by a.m. we will proceed with placement of permacath per vascular. Continue current management at this time. 09/07: s/p perm cath placement yesterday. cont current Mx. -Blood cultures positive again, repeat ordered, ID recommended JAYDEN and given encephalopathy, MRI brain without contrast ordered, rule out septic emboli to the brain. will need abx set up with HD on discharge. CM consulted 09/08; MRI brain showed no acute process. f/u JAYDEN and repeat blood cultures, Continue IV vancomycin, renally dosed. need blood cultures negative for at least 48 hours before we can proceed with PermCath placement 09/09: blood cultures are negative for ~ 48 hours, of for PermCath placement per ID. Continue IV vancomycin, renally dosed x 6 weeks ending 10/19/2020: CM notified. TTE without obvious valvular vegetations, but a echo density in right atrium close to eustachian valve, d/w cardiology. ?old thrombus from previous HD cath. Hence, planned to treat for 6 weeks from bacteremia clearance. 09/10: s/p HD today. blood cx neg for >48H. need to place perm cath. CM consulted for iv abx with HD. 09/11: wait for perm cath placement for HD - reconsulted vascular. need iv abx with HD on discharge Subjective Date of service: 09/11/20 Principal diagnosis: Bacteremia Interval history: Patient seen and examined no acute issue o/n denies any SOB or chest pain Objective - Exam Narrative Exam: GENERAL: Awake appears generally weak HEAD: No signs of head trauma. EYES: Pupils are equal. Extraocular motions intact. MOUTH: Oropharynx is normal. NECK: No adenopathy, no JVD. CHEST: Chest with diminished breath sounds bilaterally. No wheezes, rales, or rhonchi. CARDIAC: normal S1 and S2, without murmurs, gallops, or rubs. ABDOMEN: Soft, non tender and non distended. No rebound or guarding, and no masses palpated. Bowel Sounds normal. MUSCULOSKELETAL: no Edema NEUROLOGIC EXAM: Alert and oriented. No focal neurologic deficits SKIN: No obvious lesions - Constitutional Vitals: Vital Signs - 12hr 09/11/20 09/11/20 10:00 13:19 Temperature 98.2 F Pulse Rate 86 Respiratory 19 Rate Blood Pressure 106/56 O2 Sat by Pulse 92 92 Oximetry - Labs CBC & Chem 7: 09/12/20 08:13 09/12/20 08:13 Labs: Abnormal lab results 09/11/20 Range/Units 05:38 BUN 18 H (7-17) mg/dL Creatinine 3.5 H (0.6-1.2) mg/dL HEART Score - HEART Score EKG: Normal Age: > 65
--- NOTE | 2020-09-11 20:04 | Progress Note ---
Assessment and Plan Impression: * End stage renal disease * Sepsis * Catheter associated bacteremia --Blood cx: MRSA --Permcath removal (Sep 04), s/p vasc-cath placement (09/06) * Acute encephalopathy * Anemia secondary to ESRD * Secondary hyperparathyroidism * Schizophrenia Plan: * Status post hemodialysis yesterday, tolerated without any complications. Continue MWF * Continue midodrine daily * Ok for permacath placement as cultures resulted positive * Cardiology note reviewed and JAYDEN findings noted * Abx per ID * ID note/plan reviewed * Medical management of electrolytes * Dose medications for renal function * Epogen TIW prn * Renal diet Subjective Date of service: 09/11/20 Principal diagnosis: Bacteremia Interval history: Patient was seen for her renal issues Nursing, interdisciplinary and consult notes were reviewed Vitals, input and output, medications and labs were reviewed Tolerated dialysis yesterday without any complications Objective - Exam Narrative Exam: Constitutional: No acute distress Head: Normocephalic/atraumatic Neck: Supple Lungs: Clear to auscultation bilaterally Cardiovascular: RRR, no M/R/G Abdomen: Soft, nontender, NABS Back, nontender Extremities: No edema, pulses within normal limits Skin: Intact, no rash Neuro: Awake and alert - Vital Signs Vital signs: Vital Signs - 12hr 09/11/20 09/11/20 09/11/20 10:00 13:19 18:39 Temperature 98.2 F 96.0 F L Pulse Rate 86 93 H Respiratory 19 19 Rate Blood Pressure 106/56 107/61 O2 Sat by Pulse 92 92 93 Oximetry - Lab 09/10/20 04:17 09/11/20 05:38 Most recent lab results Calcium 9.4 mg/dL (8.4-10.2) 09/11/20 05:38 Medications & Allergies - Medications Allergies/Adverse Reactions: Allergies Penicillins Allergy (Verified 03/15/20 07:07) Rash corn Adverse Reaction (Verified 03/15/20 07:07) Unknown Home Medications: Home Medications Medication Instructions Recorded Confirmed Last Taken Type Acetaminophen [Acetaminophen TAB] 650 mg PO Q4H PRN tablet 06/03/19 09/02/20 09/02/20 Rx LORazepam [Ativan] 1 mg PO BID 08/20/19 09/02/20 03/28/20 17:00 History Memantine Xr [Namenda Xr] 5 mg PO DAILY 08/20/19 09/02/20 03/28/20 09:00 History Midodrine [Proamatine] 10 mg PO TID 08/20/19 09/02/20 03/28/20 17:00 History QUEtiapine [SEROquel] 400 mg PO BID 08/20/19 09/02/20 03/28/20 20:00 History Pantoprazole [Protonix TAB] 40 mg PO BID tablet 10/12/19 09/02/20 03/28/20 17:00 Rx HYDROcodone/APAP 5-325 [[place] 1 each PO Q6H PRN #24 tablet 03/29/20 09/02/20 Unknown Rx 5-325 mg TAB] Divalproex Sprinkle 1,500 mg PO QHS 09/02/20 09/02/20 Unknown History Divalproex Sprinkle [DepaKOTE 250 mg PO ONCE 09/02/20 09/02/20 Unknown History SPRINKLE] Sevelamer Carbonate [Renvela] 0.8 gram PO TIDWM 09/02/20 09/02/20 Unknown History VALPROIC ACID Liq [DepaKENE Liq] 500 mg PO DAILY 09/02/20 09/02/20 Unknown History Active Medications: Generic Name Dose Route Start Last Admin Trade Name Freq PRN Reason Stop Dose Admin Acetaminophen 650 mg 09/02/20 19:55 09/03/20 23:53 Acetaminophen 325 Mg Tab PO 650 mg Q4H PRN Administration Pain MILD(1-3)/Fever >100.5/DRAKE Hydrocodone Bitart/Acetaminophen 1 each 09/02/20 19:55 Hydrocodone/Acetaminophen 5-325 Mg Tab PO Q6H PRN Pain, Moderate (4-6) Divalproex Sodium 250 mg 09/04/20 17:00 09/11/20 18:[address] 250 Mg Tab PO 250 mg DAILY@1700 CONNOR Administration Divalproex Sodium 1,500 mg 09/04/20 22:00 09/11/20 00:[address] 500 Mg Tab PO 1,500 mg QHS CONNOR Administration Hydromorphone HCl 0.5 mg 09/02/20 19:59 Hydromorphone 1 Mg/1 Ml Inj IV Q3H PRN Pain , Severe (7-10) Sodium Chloride 100 mls @ 999 mls/hr 09/03/20 11:55 Nacl 0.9% IV BIANCA PRN Hypotension Lorazepam 1 mg 09/02/20 22:00 09/11/20 11:11 Lorazepam 1 Mg Tab PO 1 mg BID CONNOR Administration Memantine 5 mg 09/03/20 10:00 09/11/20 11:11 Memantine 5 Mg Tab PO 5 mg QDAY CONNOR Administration Midodrine 10 mg 09/02/20 20:00 09/11/20 18:16 Midodrine 5 Mg Tab PO 10 mg TID@0800,1200,1600 CONNOR Administration Ondansetron HCl 4 mg 09/02/20 19:59 Ondansetron 4 Mg/2 Ml Inj IV Q8H PRN Nausea And Vomiting Pantoprazole Sodium 40 mg 09/02/20 22:00 09/11/20 11:12 Pantoprazole 40 Mg Tab PO 40 mg BID CONNOR Administration Quetiapine Fumarate 400 mg 09/02/20 22:00 09/11/20 11:12 Quetiapine 200 Mg Tab PO 400 mg BID CONNOR Administration Sevelamer Carbonate 800 mg 09/03/20 08:00 09/11/20 18:16 Sevelamer Carbonate 800 Mg Tab PO 800 mg TIDWM CONNOR Administration Sodium Chloride 10 ml 09/02/20 22:00 09/11/20 00:58 Sodium Chloride 0.9% 10 Ml Flush Syringe IV 10 ml BID CONNOR Administration Sodium Chloride 10 ml 09/02/20 19:59 Sodium Chloride 0.9% 10 Ml Flush Syringe IV PRN PRN LINE FLUSH Valproic Acid 500 mg 09/03/20 10:00 09/11/20 11:11 Valproic Acid 250 Mg/5 Ml Oral Liqd PO 500 mg DAILY CONNOR Administration
[2020-09-12] MEDS: LORazepam 1 MG TAB PO SCH ×3 (01:10→21:03)
[2020-09-12] MEDS: MIDODRINE 5 MG TAB PO SCH ×3 (09:04→18:00)
[2020-09-12] MEDS: SEVELAMER CARBONATE 800 MG TAB PO SCH ×3 (09:04→18:00)
[2020-09-12 09:14] LABS: Hematocrit 22.6 % (30.3-42.9); Hemoglobin 7.6 gm/dl (10.1-14.3); Mean Corpuscular HGB Conc 34 % (30-34); Mean Corpuscular Volume 83 fl (79-97); Platelet Count 278 K/mm3 (140-440); Red Blood Count 2.72 M/mm3 (3.65-5.03); Red Cell Distribution Width 18.5 % (13.2-15.2)
[2020-09-12 09:18] LABS: Calcium 8.9 mg/dL (8.4-10.2)
[2020-09-12 10:35] LABS: Total Cells Counted 100
[2020-09-12 10:36] LABS: Band Neutrophils # (Manual) 0.5 K/mm3; Hypochromasia 1+
[2020-09-12 10:37] LABS: Poikilocytosis 1+
--- NOTE | 2020-09-12 12:20 | Progress Note ---
Assessment and Plan --Sepsis -Blood culture showed staph aureus. -Repeat BC 09/04 - NTD -Source of infection likely permacath. Vascular surgery consulted for permacath removal and this has been removed and replaced with vascath. -Continue IV antibiotics -ID recs appreciated --Staph bacteremia/MRSA Continue antibiotics Blood culture repeat sent on 09/04, 09/05 and positive Resent Cx on 09/07 - Cx neg so far neg 2d Echocardiogram and JAYDEN showed no vegetation --Transaminitis As result of ongoing systemic infection Continue to trend --Acute metabolic encephalopathy -Resolved --Elevated D-dimer V/Q showed low probability of PE COVID-19 ruled out --ESRD Hemodialysis as scheduled Plan for catheter placement is blood culture is negative for 48 hours. Vascular and nephrology on board. --DVT prophylaxis Heparin products Brief History; 65-year-old female who is a resident of [facility] with history of end-stage renal disease on dialysis, hypertension, bipolar, anxiety, schizophrenia, and GERD who presents to [facility] ED via EMS with complaints of altered mental status, and difficulty breathing. Patient is unable to provide history. History is provided by medical report and review of records. Per custodial staff patient's mentation was altered and displayed difficulty breathing and so she was sent to the ED for further evaluation and treatment. While in the ED patient was noted to be febrile with T-max 102.8, and hypoxic on room air. Here patient had a blood culture. Started on IV antibiotics. Was placed on oxygen supplementation. Coronavirus test ordered and was negative. 09/03. Blood culture growing staph aureus. ID on board. Patient has a permacath on the right chest through which she gets hemodialysis. Vascular surgery consulted for removal of catheter. Echocardiogram ordered to rule out endocarditis 09/04. More awake today. Has no complaints. Maintained on antibiotics. Echocardiogram pending. Vascular surgery consulted for removal of permacath. 09/05. Febrile overnight. Catheter removed by vascular. On IV vancomycin. ID following. BC 09/04 remains NTD. Plan for placement of catheter per vascular and ID. 09/06: No fever in the last 24 hours. If remains afebrile by a.m. we will proceed with placement of permacath per vascular. Continue current management at this time. 09/07: s/p perm cath placement yesterday. cont current Mx. -Blood cultures positive again, repeat ordered, ID recommended JAYDEN and given encephalopathy, MRI brain without contrast ordered, rule out septic emboli to the brain. will need abx set up with HD on discharge. CM consulted 09/08; MRI brain showed no acute process. f/u JAYDEN and repeat blood cultures, Continue IV vancomycin, renally dosed. need blood cultures negative for at least 48 hours before we can proceed with PermCath placement 09/09: blood cultures are negative for ~ 48 hours, of for PermCath placement per ID. Continue IV vancomycin, renally dosed x 6 weeks ending 10/19/2020: CM notified. TTE without obvious valvular vegetations, but a echo density in right atrium close to eustachian valve, d/w cardiology. ?old thrombus from previous HD cath. Hence, planned to treat for 6 weeks from bacteremia clearance. 09/10: s/p HD today. blood cx neg for >48H. need to place perm cath. CM consulted for iv abx with HD. 09/11: wait for perm cath placement for HD - reconsulted vascular. need iv abx with HD on discharge 09/12: planned to place permcath tomorrow. check depakote level Subjective Date of service: 09/12/20 Principal diagnosis: Bacteremia Interval history: Patient seen and examined no acute issue o/n denies any SOB or chest pain Objective - Exam Narrative Exam: GENERAL: Awake appears generally weak HEAD: No signs of head trauma. EYES: Pupils are equal. Extraocular motions intact. MOUTH: Oropharynx is normal. NECK: No adenopathy, no JVD. CHEST: Chest with diminished breath sounds bilaterally. No wheezes, rales, or rhonchi. CARDIAC: normal S1 and S2, without murmurs, gallops, or rubs. ABDOMEN: Soft, non tender and non distended. No rebound or guarding, and no masses palpated. Bowel Sounds normal. MUSCULOSKELETAL: no Edema NEUROLOGIC EXAM: Alert and oriented. No focal neurologic deficits SKIN: No obvious lesions - Constitutional Vitals: Vital Signs - 12hr 09/12/20 04:41 Temperature 98.7 F Pulse Rate 89 Respiratory 18 Rate Blood Pressure 107/59 O2 Sat by Pulse 92 Oximetry - Labs CBC & Chem 7: 09/12/20 08:13 09/12/20 08:13 Labs: Abnormal lab results 1209/12/20 09/12/20 Range/Units 08:13 08:13 11:05 RBC 2.72 L (3.65-5.03) M/mm3 Hgb 7.6 L (10.1-14.3) gm/dl Hct 22.6 L (30.3-42.9) % RDW 18.5 H (13.2-15.2) % Seg Neuts % (Manual) 77.0 H (40.0-70.0) % Lymphocytes % (Manual) 13.0 L (13.4-35.0) % Lymphocytes # (Manual) 0.9 L (1.2-5.4) K/mm3 BUN 30 H (7-17) mg/dL Creatinine 4.5 H (0.6-1.2) mg/dL Vancomycin Trough 27.3 H (5.0-20.0) ug/mL HEART Score - HEART Score EKG: Normal Age: > 65
[2020-09-12] MEDS: PANTOPRAZOLE 40 MG TAB PO SCH ×2 (13:12→21:02)
[2020-09-12] MEDS: QUEtiapine 200 MG TAB PO SCH ×2 (13:12→21:02)
[2020-09-12] MEDS: MEMANTINE 5 MG TAB PO SCH (13:33)
[2020-09-12] MEDS: VALPROIC ACID 250 MG/5 ML ORAL LIQD PO SCH (13:34)
--- NOTE | 2020-09-12 20:44 | Progress Note ---
Assessment and Plan Impression: * End stage renal disease * Sepsis * Catheter associated bacteremia --Blood cx: MRSA --Permcath removal (Sep 04), s/p vasc-cath placement (09/06) * Acute encephalopathy * Anemia secondary to ESRD * Secondary hyperparathyroidism * Schizophrenia Plan: * Continue HD MWF * Continue midodrine daily * Ok for permacath placement as repeat cultures resulted positive * Cardiology note reviewed and JAYDEN findings noted * Abx per ID * ID note/plan reviewed * Medical management of electrolytes * Dose medications for renal function * Epogen TIW prn * Renal diet Subjective Date of service: 09/12/20 Principal diagnosis: Bacteremia Interval history: Patient was seen for her renal issues Nursing, interdisciplinary and consult notes were reviewed Vitals, input and output, medications and labs were reviewed Notes poor appetite today Objective - Exam Narrative Exam: Constitutional: No acute distress Head: Normocephalic/atraumatic Neck: Supple Lungs: Clear to auscultation bilaterally Cardiovascular: RRR, no M/R/G Abdomen: Soft, nontender, NABS Back, nontender Extremities: No edema, pulses within normal limits Skin: Intact, no rash Neuro: Awake and alert - Vital Signs Vital signs: Vital Signs - 12hr 09/12/20 09/12/20 12:30 16:25 Temperature 97.8 F 98 F Pulse Rate 83 91 H Respiratory 18 18 Rate Blood Pressure 87/56 109/55 [Right] - Lab 09/12/20 08:13 09/12/20 08:13 Most recent lab results Calcium 8.9 mg/dL (8.4-10.2) 09/12/20 08:13 Medications & Allergies - Medications Allergies/Adverse Reactions: Allergies Penicillins Allergy (Verified 03/15/20 07:07) Rash corn Adverse Reaction (Verified 03/15/20 07:07) Unknown Home Medications: Home Medications Medication Instructions Recorded Confirmed Last Taken Type Acetaminophen [Acetaminophen TAB] 650 mg PO Q4H PRN tablet 06/03/19 09/02/20 09/02/20 Rx LORazepam [Ativan] 1 mg PO BID 08/20/19 09/02/20 03/28/20 17:00 History Memantine Xr [Namenda Xr] 5 mg PO DAILY 08/20/19 09/02/20 03/28/20 09:00 History Midodrine [Proamatine] 10 mg PO TID 08/20/19 09/02/20 03/28/20 17:00 History QUEtiapine [SEROquel] 400 mg PO BID 08/20/19 09/02/20 03/28/20 20:00 History Pantoprazole [Protonix TAB] 40 mg PO BID tablet 10/12/19 09/02/20 03/28/20 17:00 Rx HYDROcodone/APAP 5-325 [[place] 1 each PO Q6H PRN #24 tablet 03/29/20 09/02/20 Unknown Rx 5-325 mg TAB] Divalproex Sprinkle 1,500 mg PO QHS 09/02/20 09/02/20 Unknown History Divalproex Sprinkle [DepaKOTE 250 mg PO ONCE 09/02/20 09/02/20 Unknown History SPRINKLE] Sevelamer Carbonate [Renvela] 0.8 gram PO TIDWM 09/02/20 09/02/20 Unknown History VALPROIC ACID Liq [DepaKENE Liq] 500 mg PO DAILY 09/02/20 09/02/20 Unknown History Active Medications: Generic Name Dose Route Start Last Admin Trade Name Freq PRN Reason Stop Dose Admin Acetaminophen 650 mg 09/02/20 19:55 09/03/20 23:53 Acetaminophen 325 Mg Tab PO 650 mg Q4H PRN Administration Pain MILD(1-3)/Fever >100.5/DRAKE Hydrocodone Bitart/Acetaminophen 1 each 09/02/20 19:55 Hydrocodone/Acetaminophen 5-325 Mg Tab PO Q6H PRN Pain, Moderate (4-6) Divalproex Sodium 250 mg 09/04/20 17:00 09/11/20 18:[address] 250 Mg Tab PO 250 mg DAILY@1700 CONNOR Administration Divalproex Sodium 1,500 mg 09/04/20 22:00 09/11/20 21:[address] 500 Mg Tab PO 1,500 mg QHS CONNOR Administration Hydromorphone HCl 0.5 mg 09/02/20 19:59 Hydromorphone 1 Mg/1 Ml Inj IV Q3H PRN Pain , Severe (7-10) Sodium Chloride 100 mls @ 999 mls/hr 09/03/20 11:55 Nacl 0.9% IV BIANCA PRN Hypotension Lorazepam 1 mg 09/02/20 22:00 09/12/20 13:12 Lorazepam 1 Mg Tab PO 1 mg BID CONNOR Administration Memantine 5 mg 09/03/20 10:00 09/12/20 13:33 Memantine 5 Mg Tab PO Not Given QDAY CONNOR Midodrine 10 mg 09/02/20 20:00 09/12/20 18:00 Midodrine 5 Mg Tab PO Not Given TID@0800,1200,1600 CONNOR Ondansetron HCl 4 mg 09/02/20 19:59 Ondansetron 4 Mg/2 Ml Inj IV Q8H PRN Nausea And Vomiting Pantoprazole Sodium 40 mg 09/02/20 22:00 09/12/20 13:12 Pantoprazole 40 Mg Tab PO 40 mg BID CONNOR Administration Quetiapine Fumarate 400 mg 09/02/20 22:00 09/12/20 13:12 Quetiapine 200 Mg Tab PO 400 mg BID CONNOR Administration Sevelamer Carbonate 800 mg 09/03/20 08:00 09/12/20 18:00 Sevelamer Carbonate 800 Mg Tab PO Not Given TIDWM CONNOR Sodium Chloride 10 ml 09/02/20 22:00 09/12/20 13:13 Sodium Chloride 0.9% 10 Ml Flush Syringe IV Not Given BID CONNOR Sodium Chloride 10 ml 09/02/20 19:59 Sodium Chloride 0.9% 10 Ml Flush Syringe IV PRN PRN LINE FLUSH Valproic Acid 500 mg 09/03/20 10:00 09/12/20 13:34 Valproic Acid 250 Mg/5 Ml Oral Liqd PO Not Given DAILY CONNOR
[2020-09-13] MEDS: MIDODRINE 5 MG TAB PO SCH ×3 (07:52→19:54)
[2020-09-13] MEDS: SEVELAMER CARBONATE 800 MG TAB PO SCH ×3 (07:53→19:54)
[2020-09-13] MEDS ORDERED: HEPARIN/NS 5000 UNIT/500ML 500 ML IR ONE (07:58)
[2020-09-13] MEDS ORDERED: SODIUM CHLORIDE 0.9% 250ML 250 ML ONE (07:58)
[2020-09-13] MEDS ORDERED: HEPARIN 10,000 UNITS/10 ML VIAL ONE (07:58)
[2020-09-13] MEDS: fentaNYL 100 MCG/2 ML INJ ONE ×3 (09:31→10:02)
[2020-09-13] MEDS: LIDOCAINE (2%) 20 MG/1 ML VIAL 20 ML MDV INFILTRATI ONE ×2 (09:32→10:00)
[2020-09-13] MEDS: MIDAZOLAM 2 MG/2 ML INJ ONE ×3 (09:32→10:02)
--- NOTE | 2020-09-13 10:51 | Progress Note ---
Assessment and Plan Impression: * End stage renal disease * Sepsis * Catheter associated bacteremia --Blood cx: MRSA --Permcath removal (Sep 04), s/p vasc-cath placement (09/06) * Acute encephalopathy * Anemia secondary to ESRD * Secondary hyperparathyroidism * Schizophrenia Plan: * Continue HD MWF * Continue midodrine daily * Ok for permacath placement today * Cardiology note reviewed and JAYDEN findings noted * Abx per ID * ID note/plan reviewed * Medical management of electrolytes * Dose medications for renal function * Epogen TIW prn * Renal diet * ok to dc home after hd with iv vanco at [facility], already arranged by myself Subjective Date of service: 09/13/20 Principal diagnosis: Bacteremia Interval history: resting in bed today Objective - Exam Narrative Exam: Constitutional: No acute distress Head: Normocephalic/atraumatic Neck: Supple Lungs: Clear to auscultation bilaterally Cardiovascular: RRR, no M/R/G Abdomen: Soft, nontender, NABS Back, nontender Extremities: No edema, pulses within normal limits Skin: Intact, no rash Neuro: Awake and alert - Vital Signs Vital signs: Vital Signs - 12hr 09/13/20 05:31 Temperature 98.5 F Pulse Rate 74 Respiratory 16 Rate Blood Pressure 100/54 O2 Sat by Pulse 93 Oximetry - Lab 09/12/20 08:13 09/12/20 08:13 Most recent lab results Calcium 8.9 mg/dL (8.4-10.2) 09/12/20 08:13 Medications & Allergies - Medications Allergies/Adverse Reactions: Allergies Penicillins Allergy (Verified 03/15/20 07:07) Rash corn Adverse Reaction (Verified 03/15/20 07:07) Unknown Home Medications: Home Medications Medication Instructions Recorded Confirmed Last Taken Type Acetaminophen [Acetaminophen TAB] 650 mg PO Q4H PRN tablet 06/03/19 09/02/20 09/02/20 Rx LORazepam [Ativan] 1 mg PO BID 08/20/19 09/02/20 03/28/20 17:00 History Memantine Xr [Namenda Xr] 5 mg PO DAILY 08/20/19 09/02/20 03/28/20 09:00 History Midodrine [Proamatine] 10 mg PO TID 08/20/19 09/02/20 03/28/20 17:00 History QUEtiapine [SEROquel] 400 mg PO BID 08/20/19 09/02/20 03/28/20 20:00 History Pantoprazole [Protonix TAB] 40 mg PO BID tablet 10/12/19 09/02/20 03/28/20 17:00 Rx HYDROcodone/APAP 5-325 [[place] 1 each PO Q6H PRN #24 tablet 03/29/20 09/02/20 Unknown Rx 5-325 mg TAB] Divalproex Sprinkle 1,500 mg PO QHS 09/02/20 09/02/20 Unknown History Divalproex Sprinkle [DepaKOTE 250 mg PO ONCE 09/02/20 09/02/20 Unknown History SPRINKLE] Sevelamer Carbonate [Renvela] 0.8 gram PO TIDWM 09/02/20 09/02/20 Unknown History VALPROIC ACID Liq [DepaKENE Liq] 500 mg PO DAILY 09/02/20 09/02/20 Unknown History Active Medications: Generic Name Dose Route Start Last Admin Trade Name Freq PRN Reason Stop Dose Admin Acetaminophen 650 mg 09/02/20 19:55 09/03/20 23:53 Acetaminophen 325 Mg Tab PO 650 mg Q4H PRN Administration Pain MILD(1-3)/Fever >100.5/DRAKE Hydrocodone Bitart/Acetaminophen 1 each 09/02/20 19:55 Hydrocodone/Acetaminophen 5-325 Mg Tab PO Q6H PRN Pain, Moderate (4-6) Divalproex Sodium 750 mg 09/13/20 22:[address] 250 Mg Tab PO BID CONNOR Hydromorphone HCl 0.5 mg 09/02/20 19:59 Hydromorphone 1 Mg/1 Ml Inj IV Q3H PRN Pain , Severe (7-10) Sodium Chloride 100 mls @ 999 mls/hr 09/03/20 11:55 Nacl 0.9% IV BIANCA PRN Hypotension Lorazepam 1 mg 09/02/20 22:00 09/12/20 21:03 Lorazepam 1 Mg Tab PO 1 mg BID CONNOR Administration Memantine 5 mg 09/03/20 10:00 09/12/20 13:33 Memantine 5 Mg Tab PO Not Given QDAY CONNOR Midodrine 10 mg 09/02/20 20:00 09/13/20 07:52 Midodrine 5 Mg Tab PO Not Given TID@0800,1200,1600 CONNOR Ondansetron HCl 4 mg 09/02/20 19:59 Ondansetron 4 Mg/2 Ml Inj IV Q8H PRN Nausea And Vomiting Pantoprazole Sodium 40 mg 09/02/20 22:00 09/12/20 21:02 Pantoprazole 40 Mg Tab PO 40 mg BID CONNOR Administration Quetiapine Fumarate 400 mg 09/02/20 22:00 09/12/20 21:02 Quetiapine 200 Mg Tab PO 400 mg BID CONNOR Administration Sevelamer Carbonate 800 mg 09/03/20 08:00 09/13/20 07:53 Sevelamer Carbonate 800 Mg Tab PO Not Given TIDWM CONNOR Sodium Chloride 10 ml 09/02/20 22:00 09/12/20 21:03 Sodium Chloride 0.9% 10 Ml Flush Syringe IV 10 ml BID CONNOR Administration Sodium Chloride 10 ml 09/02/20 19:59 Sodium Chloride 0.9% 10 Ml Flush Syringe IV PRN PRN LINE FLUSH
[2020-09-13] MEDS ORDERED: DIVALPROEX ER 500 MG TAB PO SCH (11:00)
--- NOTE | 2020-09-13 12:39 | Operative Report ---
Operative Report Operative Report: EXAM: 1. Fluoroscopic-guided placement of a left internal jugular tunneled cuffed hemodialysis catheter. DATE: 09/13/2020 INDICATION: End-stage renal disease requiring hemodialysis access. MEDICATIONS: Please see nursing report for full details. DEVICES: 23 cm tip to cuff dual lumen hemodialysis catheter, palindrome GETTERING FILAMENT MACHINE OPERATOR: LEONORA HINOJOSA MD CONTRAST: None PROCEDURE: The risks, benefits, and alternatives were discussed and informed consent was obtained. The patient was transported to the angiography suite in satisfactory/stable condition and was transported onto the angiography table. The patient was prepped and draped in a sterile fashion. The existing vascath was prepped and draped in a sterile fashion. Suture was cut. 0.035 inch wire was advanced through the Vas-Cath into right atrium which was not able to enter the IVC. Vas-Cath was removed. The wire was cleaned with ChloraPrep. Over the 0.035 inch wire, an 11 Wolof sheath was placed in an angled catheter with a 0.035 inch wire was then negotiated into the IVC. The IVC was selected. Then the left common and external iliac vein was selected. 0.035 inch Amplatz wire was then placed into the catheter and the angled catheter and sheath were removed. Serial dilatation was performed with ultimate placement of a peel-away sheath. Reverse tunneled PermCath was inserted to the peel-away sheath and positioned in the right atrium. Peel-away sheath removed. A suitable exit site was identified on the patient's chest inferior and lateral to the venotomy. The site was anesthetized with local anesthetic and the track was anesthetized. Dermatotomy was made. Reverse tunneler was then tunneled from dermatotomy to the venotomy site/catheter. The PermCath was attached to the tunneling device and reverse tunneled between the dermatotomy to the venotomy. The catheter was reassembled. 4-0 Vicryl suture was used to close the venotomy and Dermabond was then applied. 2-0 Ethilon suture was used to secure the catheter at the dermatotomy. The catheter was charged with heparin 1000 units/mL space. The patient was transferred from the angiography suite back to the floor in stable condition. FINDINGS: 1. Excellent flow was obtained through the dialysis catheter with 20 mL syringes. 2. The catheter tip is in the right atrium. IMPRESSION: 1. Fluoroscopic-guided placement of a left internal jugular tunneled cuffed hemodialysis catheter.
--- NOTE | 2020-09-13 13:15 | Discharge Summary ---
Providers - Providers Date of Admission: 09/03/20 07:59 Date of discharge: 09/13/20 Attending physician: FRANCO SORTO 09/02/20 19:59 Consult to Physician [CONS] Routine Comment: Consulting Provider: NEREYDA GONZÁLES Physician Instructions: Reason For Exam: ESRD 09/03/20 11:51 Consult to Physician [CONS] Routine Comment: Consulting Provider: MICHEAL JEAN BAPTISTE Physician Instructions: Reason For Exam: Bacteremia 09/03/20 17:08 Consult to Physician [CONS] Routine Comment: Consulting Provider: LEONORA HINOJOSA Physician Instructions: Reason For Exam: Permacath removal 09/09/20 14:47 Consult to Case Management [CONS] Routine Services Needed at Discharge: Other Notified:: cm notified Comment:: IV abx at dialysis center Additional Physician Instructions: [facility] O: [phone] F: [phone] OUTPATIENT PARENTERAL ANTIBIOTIC THERAPY (OPAT) ORDERS Diagnoses: MRSA bacteremia, HD catheter infection Antimicrobial administration: IV vancomycin 1 g post HD x 6 weeks ending 10/19/2020 Maintain vancomycin predialysis level between 10 to 20 mcg/mL Lab monitoring: - CBC with differential, Creatinine, ALT, AST, Vancomycin predialysis level once a week every Sunday/Sunday while on IV antibiotics. Please fax results to [phone] and call [phone] for critical lab results. MD [facility] 09/10/20 03:32 Speech Therapy Evaluation and Treat [CONS] Routine Reason For Exam: SWALLOWING EVALUATION 09/10/20 09:42 Consult to Physician [CONS] Routine Comment: Consulting Provider: LEONORA HINOJOSA Physician Instructions: Reason For Exam: permcath placement Primary care physician: GWEN PAL Hospitalization Condition: Stable Disposition: DC/[place]-03 [facility] Time spent for discharge: 34 minutes Exam - Constitutional Vitals: Temp Pulse Resp BP Pulse Ox 98.5 F 74 16 100/54 93 09/13/20 05:31 09/13/20 05:31 09/13/20 05:31 09/13/20 05:31 09/13/20 05:31 Plan Activity: fall precautions Weight Bearing Status: Non-Weight Bearing Diet: renal Wound: keep clean and dry Additional Instructions: Continue IV vancomycin, renally dosed x 6 weeks ending 10/19/2020 Follow up with: GWEN PAL MD [Primary Care Provider] - 7 Days
[2020-09-13] MEDS: LORazepam 1 MG TAB PO SCH ×2 (13:22→22:21)
[2020-09-13] MEDS: PANTOPRAZOLE 40 MG TAB PO SCH ×2 (13:27→22:22)
[2020-09-13] MEDS: QUEtiapine 200 MG TAB PO SCH ×2 (13:27→22:23)
--- NOTE | 2020-09-13 14:26 | Progress Note ---
Assessment and Plan --Sepsis -Blood culture showed staph aureus on 09/02, 09/04 and 09/05. -Repeat BC 09/07 - NTD -Source of infection likely permacath. Vascular surgery consulted for permacath removal and this has been removed and replaced with vascath. vascath now replaced with permcath today as blood cx now neg -Continue IV antibiotics -ID recs appreciated --Staph bacteremia/MRSA Continue antibiotics Blood culture sent on 09/02, 09/04, 09/05 and positive Resent Cx on 09/07 - Cx neg so far neg 2d Echocardiogram and JAYDEN showed no vegetation --Transaminitis As result of ongoing systemic infection Continue to trend --Acute metabolic encephalopathy -Resolved --Elevated D-dimer V/Q showed low probability of PE COVID-19 ruled out -- seizure disorder, cont depakote --ESRD Hemodialysis as scheduled Plan for catheter placement is blood culture is negative for 48 hours. Vascular and nephrology on board. --DVT prophylaxis Heparin products Brief History; 65-year-old female who is a resident of [facility] assisted with history of end-stage renal disease on dialysis, hypertension, bipolar, anxiety, schizophrenia, and GERD who presents to [facility] ED via EMS with complaints of altered mental status, and difficulty breathing. Patient is unable to provide history. History is provided by medical report and review of records. Per assisted staff patient's mentation was altered and displayed difficulty breathing and so she was sent to the ED for further evaluation and treatment. While in the ED patient was noted to be febrile with T-max 102.8, and hypoxic on room air. Here patient had a blood culture. Started on IV antibiotics. Was placed on oxygen supplementation. Coronavirus test ordered and was negative. 09/03. Blood culture growing staph aureus. ID on board. Patient has a permacath on the right chest through which she gets hemodialysis. Vascular surgery consulted for removal of catheter. Echocardiogram ordered to rule out endocarditis 09/04. More awake today. Has no complaints. Maintained on antibiotics. Echocardiogram pending. Vascular surgery consulted for removal of permacath. 09/05. Febrile overnight. Catheter removed by vascular. On IV vancomycin. ID following. BC 09/04 remains NTD. Plan for placement of catheter per vascular and ID. 09/06: No fever in the last 24 hours. If remains afebrile by a.m. we will proceed with placement of permacath per vascular. Continue current management at this time. 09/07: s/p perm cath placement yesterday. cont current Mx. -Blood cultures positive again, repeat ordered, ID recommended JAYDEN and given encephalopathy, MRI brain without contrast ordered, rule out septic emboli to the brain. will need abx set up with HD on discharge. CM consulted 09/08; MRI brain showed no acute process. f/u JAYDEN and repeat blood cultures, Con tinue IV vancomycin, renally dosed. need blood cultures negative for at least 48 hours before we can proceed with PermCath placement 09/09: blood cultures are negative for ~ 48 hours, of for PermCath placement per ID. Continue IV vancomycin, renally dosed x 6 weeks ending 10/19/2020: CM notified. TTE without obvious valvular vegetations, but a echo density in right atrium close to eustachian valve, d/w cardiology. ?old thrombus from previous HD cath. Hence, planned to treat for 6 weeks from bacteremia clearance. 09/10: s/p HD today. blood cx neg for >48H. need to place perm cath. CM consulted for iv abx with HD. 09/11: wait for perm cath placement for HD - reconsulted vascular. need iv abx with HD on discharge 09/12: planned to place permcath tomorrow. check depakote level 09/13: s/p permcath placed today. depakote level therapeutic. Continue IV vancomycin, renally dosed x 6 weeks ending 10/19/2020: need repeat JAYDEN in 4 weeks. plan to d/c SNF, need neg covid test - ordered Subjective Date of service: 09/13/20 Principal diagnosis: Bacteremia Interval history: Patient seen and examined no acute issue o/n denies any SOB or chest pain s/p permcath placed today Objective - Exam Narrative Exam: GENERAL: Awake appears generally weak HEAD: No signs of head trauma. EYES: Pupils are equal. Extraocular motions intact. MOUTH: Oropharynx is normal. NECK: No adenopathy, no JVD. CHEST: Chest with diminished breath sounds bilaterally. No wheezes, rales, or rhonchi. CARDIAC: normal S1 and S2, without murmurs, gallops, or rubs. ABDOMEN: Soft, non tender and non distended. No rebound or guarding, and no masses palpated. Bowel Sounds normal. MUSCULOSKELETAL: no Edema NEUROLOGIC EXAM: Alert and oriented. No focal neurologic deficits SKIN: No obvious lesions - Constitutional Vitals: Vital Signs - 12hr 09/13/20 09/13/20 09/13/20 05:31 11:05 14:17 Temperature 98.5 F 98.0 F 98.0 F Pulse Rate 74 91 H 91 H Respiratory 16 22 Rate Blood Pressure 100/54 Blood Pressure 124/76 124/76 [Right] O2 Sat by Pulse 93 97 Oximetry - Labs CBC & Chem 7: 09/12/20 08:13 09/12/20 08:13 HEART Score - HEART Score EKG: Normal Age: > 65
[2020-09-13] MEDS: MEMANTINE 5 MG TAB PO SCH (19:54)
[2020-09-13] MEDS ORDERED: DIVALPROEX DR 250 MG TAB PO SCH (22:00)
[2020-09-13] MEDS: DIVALPROEX DR 250 MG TAB PO SCH (22:22)
--- NOTE | 2020-09-14 08:07 | Progress Note ---
Assessment and Plan Assessment and plan: --Sepsis -Blood culture showed staph aureus on 09/02, 09/04 and 09/05. -Repeat BC 09/07 - NTD -Source of infection likely permacath. Vascular surgery consulted for permacath removal and this has been removed and replaced with vascath. vascath now replaced with permcath today as blood cx now neg -Continue IV antibiotics -ID recs appreciated --Staph bacteremia/MRSA Continue antibiotics Blood culture sent on 09/02, 09/04, 09/05 and positive Resent Cx on 09/07 - Cx neg so far neg 2d Echocardiogram and JAYDEN showed no vegetation --Transaminitis As result of ongoing systemic infection Continue to trend --Acute metabolic encephalopathy -Resolved --Elevated D-dimer V/Q showed low probability of PE COVID-19 ruled out -- seizure disorder, cont depakote --ESRD Hemodialysis as scheduled Plan for catheter placement is blood culture is negative for 48 hours. Vascular and nephrology on board. --DVT prophylaxis Heparin products Brief History; 65-year-old female who is a resident of [facility] jail with history of end-stage renal disease on dialysis, hypertension, bipolar, anxiety, schizophrenia, and GERD who presents to [facility] ED via EMS with complaints of altered mental status, and difficulty breathing. Patient is unable to provide history. History is provided by medical report and review of records. Per jail staff patient's mentation was altered and displayed difficulty breathing and so she was sent to the ED for further evaluation and treatment. While in the ED patient was noted to be febrile with T-max 102.8, and hypoxic on room air. Here patient had a blood culture. Started on IV antibiotics. Was placed on oxygen supplementation. Coronavirus test ordered and was negative. 09/03. Blood culture growing staph aureus. ID on board. Patient has a permacath on the right chest through which she gets hemodialysis. Vascular surgery consulted for removal of catheter. Echocardiogram ordered to rule out endocarditis 09/04. More awake today. Has no complaints. Maintained on antibiotics. Echocardiogram pending. Vascular surgery consulted for removal of permacath. 09/05. Febrile overnight. Catheter removed by vascular. On IV vancomycin. ID following. BC 09/04 remains NTD. Plan for placement of catheter per vascular and ID. 09/06: No fever in the last 24 hours. If remains afebrile by a.m. we will proceed with placement of permacath per vascular. Continue current management at this time. 09/07: s/p perm cath placement yesterday. cont current Mx. -Blood cultures positive again, repeat ordered, ID recommended JAYDEN and given encephalopathy, MRI brain without contrast ordered, rule out septic emboli to the brain. will need abx set up with HD on discharge. CM consulted 09/08; MRI brain showed no acute process. f/u JAYDEN and repeat blood cultures, Continue IV vancomycin, renally dosed. need blood cultures negative for at least 48 hours before we can proceed with PermCath placement 09/09: blood cultures are negative for ~ 48 hours, of for PermCath placement per ID. Continue IV vancomycin, renally dosed x 6 weeks ending 10/19/2020: CM notified. TTE without obvious valvular vegetations, but a echo density in right atrium close to eustachian valve, d/w cardiology. ?old thrombus from previous HD cath. Hence, planned to treat for 6 weeks from bacteremia clearance. 09/10: s/p HD today. blood cx neg for >48H. need to place perm cath. CM consulted for iv abx with HD. 09/11: wait for perm cath placement for HD - reconsulted vascular. need iv abx with HD on discharge 09/12: planned to place permcath tomorrow. check depakote level 09/13: s/p permcath placed today. depakote level therapeutic. Continue IV vancomycin, renally dosed x 6 weeks ending 10/19/2020: need repeat JAYDEN in 4 weeks. plan to d/c SNF, need neg covid test - ordered 09/14/2020; Covid test is negative and culture cultures management, need for SNF is arranged. History Interval history: Patient was seen and evaluated this morning Covid test is negative Patient said she is hungry and she wants to eat Hospitalist Physical - Physical exam Narrative exam: Not in cardiopulmonary distress. The patient appeared well nourished and normally developed. Vital signs as documented. Head exam is unremarkable. No scleral icterus . Neck is without jugular venous distension, thyromegaly, or carotid bruits. Lungs are clear to auscultation. Cardiac exam reveals regular rate and Rhythm. Abdominal exam reveals normal bowel sounds, nontender, no organomegaly. Extremities are nonedematous and both femoral and pedal pulses are normal. CAN STACKER: Alert and oriented 3. No focal weakness. - Constitutional Vitals: Temp Pulse Resp BP Pulse Ox 98.2 F 96 H 18 80/46 93 09/14/20 04:55 09/14/20 04:55 09/14/20 04:55 09/14/20 04:55 09/14/20 04:55 General appearance: Present: other (lethargic) HEART Score - HEART Score EKG: Normal Age: > 65 Results - Labs CBC & Chem 7: 09/12/20 08:13 09/12/20 08:13 Labs: Laboratory Last Values WBC 7.1 K/mm3 (4.5-11.0) 09/12/20 08:13 RBC 2.72 M/mm3 (3.65-5.03) L 09/12/20 08:13 Hgb 7.6 gm/dl (10.1-14.3) L 09/12/20 08:13 Hct 22.6 % (30.3-42.9) L 09/12/20 08:13 MCV 83 fl (79-97) 09/12/20 08:13 MCH 28 pg (28-32) 09/12/20 08:13 MCHC 34 % (30-34) 09/12/20 08:13 RDW 18.5 % (13.2-15.2) H 09/12/20 08:13 Plt Count 278 K/mm3 (140-440) 09/12/20 08:13 Lymph % (Auto) 10.8 % (13.4-35.0) L 09/03/20 04:46 [place]shaw % (Auto) 5.3 % (0.0-7.3) 09/03/20 04:46 Eos % (Auto) 0.0 % (0.0-4.3) 09/03/20 04:46 Baso % (Auto) 0.3 % (0.0-1.8) 09/03/20 04:46 Lymph # (Auto) 0.5 K/mm3 (1.2-5.4) L 09/03/20 04:46 Crenshaw # (Auto) 0.2 K/mm3 (0.0-0.8) 09/03/20 04:46 Eos # (Auto) 0.0 K/mm3 (0.0-0.4) 09/03/20 04:46 Baso # (Auto) 0.0 K/mm3 (0.0-0.1) 09/03/20 04:46 Add Manual Diff Complete 09/12/20 08:13 Total Counted 100 09/12/20 08:13 Seg Neutrophils % 83.6 % (40.0-70.0) H 09/03/20 04:46 Seg Neuts % (Manual) 77.0 % (40.0-70.0) H 09/12/20 08:13 Band Neutrophils % 7.0 % 09/12/20 08:13 Lymphocytes % (Manual) 13.0 % (13.4-35.0) L 09/12/20 08:13 Monocytes % (Manual) 3.0 % (0.0-7.3) 09/12/20 08:13 Nucleated RBC % Not Reportable 09/12/20 08:13 Seg Neutrophils # 3.5 K/mm3 (1.8-7.7) 09/03/20 04:46 Seg Neutrophils # Man 5.5 K/mm3 (1.8-7.7) 09/12/20 08:13 Band Neutrophils # 0.5 K/mm3 09/12/20 08:13 Lymphocytes # (Manual) 0.9 K/mm3 (1.2-5.4) L 09/12/20 08:13 Abs React Lymphs (Man) 0.0 K/mm3 09/12/20 08:13 Monocytes # (Manual) 0.2 K/mm3 (0.0-0.8) 09/12/20 08:13 Eosinophils # (Manual) 0.0 K/mm3 (0.0-0.4) 09/12/20 08:13 Basophils # (Manual) 0.0 K/mm3 (0.0-0.1) 09/12/20 08:13 Metamyelocytes # 0.0 K/mm3 09/12/20 08:13 Myelocytes # 0.0 K/mm3 09/12/20 08:13 Promyelocytes # 0.0 K/mm3 09/12/20 08:13 Blast Cells # 0.0 K/mm3 09/12/20 08:13 WBC Morphology Not Reportable 09/12/20 08:13 WBC Morphology TNR 09/12/20 08:13 Hypersegmented Neuts Not Reportable 09/12/20 08:13 Hyposegmented Neuts Not Reportable 09/12/20 08:13 Hypogranular Neuts Not Reportable 09/12/20 08:13 Smudge Cells Not Reportable 09/12/20 08:13 Toxic Granulation Not Reportable 09/12/20 08:13 Toxic Vacuolation Not Reportable 09/12/20 08:13 Dohle Bodies Not Reportable 09/12/20 08:13 Pelger-Huet Anomaly Not Reportable 09/12/20 08:13 Ubaldo Rods Not Reportable 09/12/20 08:13 Platelet Estimate Not Reportable 09/12/20 08:13 Clumped Platelets Not Reportable 09/12/20 08:13 Plt Clumps, EDTA Not Reportable 09/12/20 08:13 Large Platelets Not Reportable 09/12/20 08:13 Giant Platelets Not Reportable 09/12/20 08:13 Platelet Satelliting Not Reportable 09/12/20 08:13 Plt Morphology Comment Not Reportable 09/12/20 08:13 RBC Morphology Not Reportable 09/12/20 08:13 Dimorphic RBCs Not Reportable 09/12/20 08:13 Polychromasia Not Reportable 09/12/20 08:13 Hypochromasia 1+ 09/12/20 08:13 Poikilocytosis 1+ 09/12/20 08:13 Anisocytosis Not Reportable 09/12/20 08:13 Microcytosis Few 09/12/20 08:13 Macrocytosis Not Reportable 09/12/20 08:13 Spherocytes Not Reportable 09/12/20 08:13 Pappenheimer Bodies Not Reportable 09/12/20 08:13 Sickle Cells Not Reportable 09/12/20 08:13 Target Cells Not Reportable 09/12/20 08:13 Tear Drop Cells Not Reportable 09/12/20 08:13 Ovalocytes Not Reportable 09/12/20 08:13 Helmet Cells Not Reportable 09/12/20 08:13 Rangel-[place] Bodies Not Reportable 09/12/20 08:13 [place] Rings Not Reportable 09/12/20 08:13 Stacey Cells Not Reportable 09/12/20 08:13 Bite Cells Not Reportable 09/12/20 08:13 Crenated Cell Not Reportable 09/12/20 08:13 Elliptocytes Not Reportable 09/12/20 08:13 Acanthocytes (Spur) Not Reportable 09/12/20 08:13 Rouleaux Not Reportable 09/12/20 08:13 Hemoglobin C Crystals Not Reportable 09/12/20 08:13 Schistocytes Not Reportable 09/12/20 08:13 Malaria parasites Not Reportable 09/12/20 08:13 Torrey Bodies Not Reportable 09/12/20 08:13 Hem Pathologist Commnt No 09/12/20 08:13 PT 15.2 Sec. (12.2-14.9) H 09/02/20 20:58 INR 1.22 (0.87-1.13) H 09/02/20 20:58 APTT 34.5 Sec. (24.2-36.6) 09/02/20 20:58 D-Dimer 2836.58 ng/mlDDU (0-234) H 09/02/20 15:12 Heparin Anti-Xa Level 0.21 U.I./ml (0.3-0.7) L 09/04/20 07:56 VBG pH 7.337 (7.320-7.420) 09/02/20 12:42 Sodium 141 mmol/L (137-145) 09/12/20 08:13 Potassium 4.2 mmol/L (3.6-5.0) 09/12/20 08:13 Chloride 104.2 mmol/L (98-107) 09/12/20 08:13 Carbon Dioxide 29 mmol/L (22-30) 09/12/20 08:13 Anion Gap 12 mmol/L 09/12/20 08:13 BUN 30 mg/dL (7-17) H 09/12/20 08:13 Creatinine 4.5 mg/dL (0.6-1.2) H 09/12/20 08:13 Estimated GFR 12 ml/min 09/12/20 08:13 BUN/Creatinine Ratio 7 % 09/12/20 08:13 Glucose 93 mg/dL (65-100) 09/12/20 08:13 Hemoglobin A1c 5.3 % (4-6) 09/02/20 20:58 Lactic Acid 0.60 mmol/L (0.7-2.0) L 09/02/20 15:12 Calcium 8.9 mg/dL (8.4-10.2) 09/12/20 08:13 Ferritin 3094.0 ng/mL (10.0-200.0) H 09/02/20 15:12 Total Bilirubin 0.30 mg/dL (0.1-1.2) 09/09/20 05:45 AST 23 units/L (5-40) 09/09/20 05:45 ALT 22 units/L (7-56) 09/09/20 05:45 Alkaline Phosphatase 182 units/L (35-129) H 09/09/20 05:45 Lactate Dehydrogenase 209 units/L (91-180) H 09/02/20 15:12 C-Reactive Protein 32.80 mg/dL (0.00-1.30) H 09/02/20 15:12 Total Protein 5.7 g/dL (6.3-8.2) L 09/09/20 05:45 Albumin 2.3 g/dL (3.9-5) L 09/09/20 05:45 Albumin/Globulin Ratio 0.7 % 09/09/20 05:45 Procalcitonin 19.18 ng/mL (<0.15) 09/02/20 15:12 Urine Color Yellow (Yellow) 09/02/20 12:25 Urine Turbidity Clear (Clear) 09/02/20 12:25 Urine pH 7.0 (5.0-7.0) 09/02/20 12:25 Ur Specific [place] 1.012 (1.003-1.030) 09/02/20 12:25 Urine Protein 100 mg/dl mg/dL (Negative) 09/02/20 12:25 Urine Glucose (UA) Neg mg/dL (Negative) 09/02/20 12:25 Urine Ketones Tr mg/dL (Negative) 09/02/20 12:25 Urine Blood Neg (Negative) 09/02/20 12:25 Urine Nitrite Neg (Negative) 09/02/20 12:25 Urine Bilirubin Neg (Negative) 09/02/20 12:25 Urine Urobilinogen 2.0 mg/dL (<2.0) 09/02/20 12:25 Ur Leukocyte Esterase Tr (Negative) 09/02/20 12:25 Urine WBC (Auto) 7.0 /HPF (0.0-6.0) H 09/02/20 12:25 Urine RBC (Auto) 1.0 /HPF (0.0-6.0) 09/02/20 12:25 U Epithel Cells (Auto) 1.0 /HPF (0-13.0) 09/02/20 12:25 Urine Mucus Few /HPF 09/02/20 12:25 Vancomycin Trough 27.3 ug/mL (5.0-20.0) H 09/12/20 11:05 Random Vancomycin 19.7 ug/mL (0-40.0) 09/08/20 04:58 Valproic Acid 87.0 ug/mL (50-100) 09/12/20 11:05 Coronavirus (PCR) Negative (Negative) 09/03/20 10:00 Hepatitis A IgM Ab Non-reactive (NonReactive) 09/03/20 15:31 Hep Bs Antigen Non-reactive (Negative) 09/03/20 15:31 Hep B Core IgM Ab Non-reactive (NonReactive) 09/03/20 15:31 Hepatitis C Antibody Non-reactive (NonReactive) 09/03/20 15:31 Blood Type A POSITIVE 09/08/20 18:48 Antibody Screen Negative 09/08/20 18:48 Crossmatch See Detail 09/08/20 18:48 Microbiology: Microbiology 09/04/20 14:51 Peripheral/Venous Blood Culture - Final Methicillin Resist S. Aureus 09/04/20 14:51 Peripheral/Venous Blood Culture - Final Methicillin Resist S. Aureus Cleary/IV: Voiding Method Bedside Commode IV Catheter Type [Right Upper INT / Saline Lock arm] IV Catheter Type [Right Hand] INT / Saline Lock IV Catheter Type [Left Trialysis Internal Jugular] IV Catheter Type [Right VAS Cath Subclavian] Active Medications - Current Medications Current Medications: Generic Name Dose Route Start Last Admin Trade Name Freq PRN Reason Stop Dose Admin Acetaminophen 650 mg 09/02/20 19:55 09/03/20 23:53 Acetaminophen 325 Mg Tab PO 650 mg Q4H PRN Administration Pain MILD(1-3)/Fever >100.5/DRAKE Hydrocodone Bitart/Acetaminophen 1 each 09/02/20 19:55 Hydrocodone/Acetaminophen 5-325 Mg Tab PO Q6H PRN Pain, Moderate (4-6) Divalproex Sodium 750 mg 09/13/20 22:00 09/13/20 22:[address] 250 Mg Tab PO 750 mg BID CONNOR Administration Hydromorphone HCl 0.5 mg 09/02/20 19:59 Hydromorphone 1 Mg/1 Ml Inj IV Q3H PRN Pain , Severe (7-10) Sodium Chloride 100 mls @ 999 mls/hr 09/03/20 11:55 Nacl 0.9% IV BIANCA PRN Hypotension Lorazepam 1 mg 09/02/20 22:00 09/13/20 22:21 Lorazepam 1 Mg Tab PO 1 mg BID CONNOR Administration Memantine 5 mg 09/03/20 10:00 09/13/20 19:54 Memantine 5 Mg Tab PO Not Given QDAY CONNOR Midodrine 10 mg 09/02/20 20:00 09/13/20 19:54 Midodrine 5 Mg Tab PO Not Given TID@0800,1200,1600 [facility] Ondansetron HCl 4 mg 09/02/20 19:59 Ondansetron 4 Mg/2 Ml Inj IV Q8H PRN Nausea And Vomiting Pantoprazole Sodium 40 mg 09/02/20 22:00 09/13/20 22:22 Pantoprazole 40 Mg Tab PO 40 mg BID CONNOR Administration Quetiapine Fumarate 400 mg 09/02/20 22:00 09/13/20 22:23 Quetiapine 200 Mg Tab PO 400 mg BID CONNOR Administration Sevelamer Carbonate 800 mg 09/03/20 08:00 09/13/20 19:54 Sevelamer Carbonate 800 Mg Tab PO Not Given TIDWM CONNOR Sodium Chloride 10 ml 09/02/20 22:00 09/13/20 22:23 Sodium Chloride 0.9% 10 Ml Flush Syringe IV 10 ml BID CONNOR Administration Sodium Chloride 10 ml 09/02/20 19:59 Sodium Chloride 0.9% 10 Ml Flush Syringe IV PRN PRN LINE FLUSH Nutrition/Malnutrition Assess - Dietary Evaluation Nutrition/Malnutrition Findings: Nutrition Notes Start: 09/09/20 13:51 Freq: Status: Active Protocol: Document 09/13/20 12:04 SHILA (Rec: 09/13/20 12:08 NEALL [id number]) Nutrition Notes Initial or Follow up Reassessment Current Diagnosis CKD (stage V CKD),Sepsis Other Pertinent Diagnosis Line infection, acute encephalopathy, schizophrenia Current Diet NPO Labs/Tests Reviewed Pertinent Medications Reviewed Height 5 ft 2 in Weight 62.8 kg [place] Body Weight (kg) 50.00 BMI 25.3 Weight Status Appropriate Subjective/Other Information Pt scheduled for PermCath placement today. She remains confused and has only consumed 38% of two recorded meals. Burn Absent Trauma Absent Minimum of two criteria No #1 Nutrition Diagnosis Inadequate energy intake Diagnosis Progress(for reassessment Continues documentation) Is patient on ventilator? No Is Patient Ambulatory and/or Out of Bed No REE-([place]-St. Jeor-confined to bed) 1351.080 Calculation Used for Recommendations [place]-St Jeor Additional Notes Pro needs >1.2g/kg: >75g/day Fluid needs 1-1.5L/day Nutrition Intervention Change Diet Order: Resume Renal diet when medically feasible Goal #1 Resume PO diet to meet nutrient needs Follow-Up By: 09/14/20 Additional Comments F/U: diet advancement, order ONS
[2020-09-14] MEDS: LORazepam 1 MG TAB PO SCH (09:41)
[2020-09-14] MEDS: PANTOPRAZOLE 40 MG TAB PO SCH (09:41)
[2020-09-14] MEDS: SEVELAMER CARBONATE 800 MG TAB PO SCH ×3 (09:42→18:16)
[2020-09-14] MEDS: MEMANTINE 5 MG TAB PO SCH (09:42)
[2020-09-14] MEDS: DIVALPROEX DR 250 MG TAB PO SCH (09:42)
[2020-09-14] MEDS: MIDODRINE 5 MG TAB PO SCH ×3 (09:42→18:17)
[2020-09-14] MEDS: QUEtiapine 200 MG TAB PO SCH (09:46)
--- NOTE | 2020-09-14 12:14 | Progress Note ---
Assessment and Plan Impression: * End stage renal disease * Sepsis * Catheter associated bacteremia --Blood cx: MRSA --Permcath removal (Sep 04), s/p vasc-cath placement (09/06) * Acute encephalopathy * Anemia secondary to ESRD * Secondary hyperparathyroidism * Schizophrenia Plan: * Continue HD MWF * Continue midodrine daily * Ok for permacath placement today * Cardiology note reviewed and JAYDEN findings noted * Abx per ID * ID note/plan reviewed * Medical management of electrolytes * Dose medications for renal function * Epogen TIW prn * Renal diet * ok to dc home after hd with iv vanco at [facility], already arranged by myself Subjective Date of service: 09/14/20 Principal diagnosis: Bacteremia Interval history: resting in bed today Objective - Exam Narrative Exam: Constitutional: No acute distress Head: Normocephalic/atraumatic Neck: Supple Lungs: Clear to auscultation bilaterally Cardiovascular: RRR, no M/R/G Abdomen: Soft, nontender, NABS Back, nontender Extremities: No edema, pulses within normal limits Skin: Intact, no rash Neuro: Awake and alert - Vital Signs Vital signs: Vital Signs - 12hr 09/14/20 09/14/20 04:55 08:33 Temperature 98.2 F Pulse Rate 96 H Respiratory 18 Rate Blood Pressure 80/46 O2 Sat by Pulse 93 94 Oximetry - Lab 09/12/20 08:13 09/12/20 08:13 Most recent lab results Calcium 8.9 mg/dL (8.4-10.2) 09/12/20 08:13 Medications & Allergies - Medications Allergies/Adverse Reactions: Allergies Penicillins Allergy (Verified 03/15/20 07:07) Rash corn Adverse Reaction (Verified 03/15/20 07:07) Unknown Home Medications: Home Medications Medication Instructions Recorded Confirmed Last Taken Type Acetaminophen [Acetaminophen TAB] 650 mg PO Q4H PRN tablet 06/03/19 09/02/20 09/02/20 Rx LORazepam [Ativan] 1 mg PO BID 08/20/19 09/02/20 03/28/20 17:00 History Memantine Xr [Namenda Xr] 5 mg PO DAILY 08/20/19 09/02/20 03/28/20 09:00 History Midodrine [Proamatine] 10 mg PO TID 12/01/0309/02/20 03/28/20 17:00 History QUEtiapine [SEROquel] 400 mg PO BID 08/20/19 09/02/20 03/28/20 20:00 History Pantoprazole [Protonix TAB] 40 mg PO BID tablet 10/12/19 09/02/20 03/28/20 17:00 Rx HYDROcodone/APAP 5-325 [[place] 1 each PO Q6H PRN #24 tablet 03/29/20 09/02/20 Unknown Rx 5-325 mg TAB] Sevelamer Carbonate [Renvela] 0.8 gram PO TIDWM 09/02/20 09/02/[address] [Sarina Serrano] 750 mg PO BID tablet 09/13/20 Unknown Rx Active Medications: Generic Name Dose Route Start Last Admin Trade Name Freq PRN Reason Stop Dose Admin Acetaminophen 650 mg 09/02/20 19:55 09/03/20 23:53 Acetaminophen 325 Mg Tab PO 650 mg Q4H PRN Administration Pain MILD(1-3)/Fever >100.5/DRAKE Hydrocodone Bitart/Acetaminophen 1 each 09/02/20 19:55 09/14/20 09:52 Hydrocodone/Acetaminophen 5-325 Mg Tab PO 1 each Q6H PRN Administration Pain, Moderate (4-6) Divalproex Sodium 750 mg 09/13/20 22:00 09/14/20 09:[address] 250 Mg Tab PO 750 mg BID CONNOR Administration Hydromorphone HCl 0.5 mg 09/02/20 19:59 Hydromorphone 1 Mg/1 Ml Inj IV Q3H PRN Pain , Severe (7-10) Sodium Chloride 100 mls @ 999 mls/hr 09/03/20 11:55 Nacl 0.9% IV BIANCA PRN Hypotension Vancomycin HCl 750 mg/ Sodium 265 mls @ 166.667 mls/hr 09/15/20 20:00 Chloride IV [id number] CONNOR Lorazepam 1 mg 09/02/20 22:00 09/14/20 09:41 Lorazepam 1 Mg Tab PO 1 mg BID CONNOR Administration Memantine 5 mg 09/03/20 10:00 09/14/20 09:42 Memantine 5 Mg Tab PO 5 mg QDAY CONNOR Administration Midodrine 10 mg 09/02/20 20:00 09/14/20 09:42 Midodrine 5 Mg Tab PO 10 mg TID@0800,1200,1600 CONNOR Administration Ondansetron HCl 4 mg 09/02/20 19:59 Ondansetron 4 Mg/2 Ml Inj IV Q8H PRN Nausea And Vomiting Pantoprazole Sodium 40 mg 09/02/20 22:00 09/14/20 09:41 Pantoprazole 40 Mg Tab PO 40 mg BID CONNOR Administration Quetiapine Fumarate 400 mg 09/02/20 22:00 09/14/20 09:46 Quetiapine 200 Mg Tab PO 400 mg BID CONNOR Administration Sevelamer Carbonate 800 mg 09/03/20 08:00 09/14/20 09:42 Sevelamer Carbonate 800 Mg Tab PO 800 mg TIDWM CONNOR Administration Sodium Chloride 10 ml 09/02/20 22:00 09/14/20 09:43 Sodium Chloride 0.9% 10 Ml Flush Syringe IV 10 ml BID CONNOR Administration Sodium Chloride 10 ml 09/02/20 19:59 Sodium Chloride 0.9% 10 Ml Flush Syringe IV PRN PRN LINE FLUSH
[2020-09-14 17:50] VITALS: BP 75/45
--- NOTE | 2020-09-15 08:36 | Discharge Summary ---
Providers - Providers Date of Admission: 09/03/20 07:59 Date of discharge: 09/14/20 Attending physician: ALICIA SHAH MD 09/02/20 19:59 Consult to Physician [CONS] Routine Comment: Consulting Provider: NEREYDA GONZÁLES Physician Instructions: Reason For Exam: ESRD 09/03/20 11:51 Consult to Physician [CONS] Routine Comment: Consulting Provider: MICHEAL JEAN BAPTISTE Physician Instructions: Reason For Exam: Bacteremia 09/03/20 17:08 Consult to Physician [CONS] Routine Comment: Consulting Provider: LEONORA HINOJOSA Physician Instructions: Reason For Exam: Permacath removal 09/09/20 14:47 Consult to Case Management [CONS] Routine Services Needed at Discharge: Other Notified:: cm notified Comment:: IV abx at dialysis center Additional Physician Instructions: [facility] ([facility]) O: [phone] F: [phone] OUTPATIENT PARENTERAL ANTIBIOTIC THERAPY (OPAT) ORDERS Diagnoses: MRSA bacteremia, HD catheter infection Antimicrobial administration: IV vancomycin 1 g post HD x 6 weeks ending 10/19/2020 Maintain vancomycin predialysis level between 10 to 20 mcg/mL Lab monitoring: - CBC with differential, Creatinine, ALT, AST, Vancomycin predialysis level once a week every Sunday/Sunday while on IV antibiotics. Please fax results to [phone] and call [phone] for critical lab results. MD [facility] 09/10/20 03:32 Speech Therapy Evaluation and Treat [CONS] Routine Reason For Exam: SWALLOWING EVALUATION 09/10/20 09:42 Consult to Physician [CONS] Routine Comment: Consulting Provider: LEONORA IHNOJOSA Physician Instructions: Reason For Exam: permcath placement Primary care physician: GWEN PAL Hospitalization Reason for admission: Sepsis, MRSA bacteremia, altered mental status Condition: Stable Hospital course: 65-year-old female who is a resident of [facility] senior living with history of end-stage renal disease on dialysis, hypertension, bipolar, anxiety, emelyn izophrenia, and GERD who presents to [facility] ED via EMS with complaints of altered mental status, and difficulty breathing. Patient is unable to provide history. History is provided by medical report and review of records. Per senior living staff patient's mentation was altered and displayed difficulty breathing and so she was sent to the ED for further evaluation and treatment. While in the ED patient was noted to be febrile with T-max 102.8, and hypoxic on room air.At the time of my examination patient is resting comfortably in bed. She is unable to answer questions with occasional incoherent mumbling of words. Hospital course --Sepsis -Blood culture showed staph aureus on 09/02, 09/04 and 09/05. -Repeat BC 09/07 - NTD -Source of infection likely permacath. Vascular surgery consulted for permacath removal and this has been removed and replaced with vascath. vascath now replaced with permcath today as blood cx now neg -Continue IV antibiotics -ID recs appreciated --Staph bacteremia/MRSA Continue antibiotics Blood culture sent on 09/02, 09/04, 09/05 and positive Resent Cx on 09/07 - Cx neg so far neg 2d Echocardiogram and JAYDEN showed no vegetation --Transaminitis As result of ongoing systemic infection Continue to trend --Acute metabolic encephalopathy -Resolved --Elevated D-dimer V/Q showed low probability of PE COVID-19 ruled out -- seizure disorder, cont depakote --ESRD Hemodialysis as scheduled Plan for catheter placement is blood culture is negative for 48 hours. Vascular and nephrology on board. --DVT prophylaxis Heparin products 09/03. Blood culture growing staph aureus. ID on board. Patient has a permacath on the right chest through which she gets hemodialysis. Vascular surgery consulted for removal of catheter. Echocardiogram ordered to rule out endocarditis 09/04. More awake today. Has no complaints. Maintained on antibiotics. Echocardiogram pending. Vascular surgery consulted for removal of permacath. 09/05. Febrile overnight. Catheter removed by vascular. On IV vancomycin. ID following. BC 09/04 remains NTD. Plan for placement of catheter per vascular and ID. 09/06: No fever in the last 24 hours. If remains afebrile by a.m. we will proceed with placement of permacath per vascular. Continue current management at this time. 09/07: s/p perm cath placement yesterday. cont current Mx. -Blood cultures positive again, repeat ordered, ID recommended JAYDEN and given encephalopathy, MRI brain without contrast ordered, rule out septic emboli to the brain. will need abx set up with HD on discharge. CM consulted 09/08; MRI brain showed no acute process. f/u JAYDEN and repeat blood cultures, Continue IV vancomycin, renally dosed. need blood cultures negative for at least 48 hours before we can proceed with PermCath placement 09/09: blood cultures are negative for ~ 48 hours, of for PermCath placement per ID. Continue IV vancomycin, renally dosed x 6 weeks ending 10/19/2020: CM notified. TTE without obvious valvular vegetations, but a echo density in right atrium close to eustachian valve, d/w cardiology. ?old thrombus from previous HD cath. Hence, planned to treat for 6 weeks from bacteremia clearance. 09/10: s/p HD today. blood cx neg for >48H. need to place perm cath. CM consulted for iv abx with HD. 09/11: wait for perm cath placement for HD - reconsulted vascular. need iv abx with HD on discharge 09/12: planned to place permcath tomorrow. check depakote level 09/13: s/p permcath placed today. depakote level therapeutic. Continue IV vancomycin, renally dosed x 6 weeks ending 10/19/2020: need repeat JAYDEN in 4 weeks. plan to d/c SNF, need neg covid test - ordered 09/14/2020; Covid test is negative and case management arranged to SNF and discharged. ID arranged outpatient IV antibiotics. Patient is followed with nephrology. I will put ID follow-up in the office in 4 weeks order JAYDEN follow- up with results. Patient was hemodynamically stable at the time of discharge. Disposition: [id number]/[id number] SNF [facility] Time spent for discharge: 34 minutes - Discharge Diagnoses (1) Acute encephalopathy Status: Acute (2) Bacteremia Status: Acute (3) ESRD (end stage renal disease) on dialysis Status: Acute (4) Fever Status: Acute (5) Hypokalemia Status: Acute (6) Hypotension Status: Acute Qualifiers: Hypotension type: unspecified hypotension type Qualified Code(s): I95.9 - Hypotension, unspecified (7) Metabolic acidosis Status: Acute (8) Sepsis Status: Acute (9) Septic shock Status: Acute (10) Transaminitis Status: Acute (11) Uremic encephalopathy Status: Acute (12) Schizophrenia Status: Chronic Qualifiers: Schizophrenia type: unspecified Qualified Code(s): F20.9 - Schizophrenia, unspecified Core Measure Documentation - Palliative Care Palliative Care/ Comfort Measures: Not Applicable - Core Measures Any of the following diagnoses?: none Exam - Physical Exam Narrative exam: Not in cardiopulmonary distress. The patient appeared well nourished and normally developed. Vital signs as documented. Head exam is unremarkable. No scleral icterus . Neck is without jugular venous distension, thyromegaly, or carotid bruits. Lungs are clear to auscultation. Cardiac exam reveals regular rate and Rhythm. Abdominal exam reveals normal bowel sounds, nontender, no organomegaly. Extremities are nonedematous and both femoral and pedal pulses are normal. SET UP MECHANIC AUTOMATIC LINE: Alert and oriented 3. No focal weakness. - Constitutional Vitals: Temp Pulse Resp BP Pulse Ox 98.9 F 91 H 20 75/45 98 09/14/20 13:28 09/14/20 13:28 09/14/20 13:28 09/14/20 13:28 09/14/20 13:28 Plan Weight Bearing Status: Weight Bear as Tolerated Diet: renal Follow up with: GWEN PAL MD [Primary Care Provider] - 7 Days
[2020-09-15] MEDS ORDERED: VANCOMYCIN 750 MG in SODIUM CHLORIDE 0.9% 250ML 250 ML IV SCH (20:00)
== END 2020-09-14 18:55 | DRG 871 ==
LOC: ED 10:42 → 3A 14:03 → OBSVTOIN 09-03 07:59 → 3A 09-03 09:41
PROVIDERS: ADMIT Internal Medicine; ATTEND Internal Medicine
PROC: 0JPT3XZ Removal of Tunneled Vascular Access Device from Trunk Subcutaneous Tissue and Fascia, Percutaneous Approach (ICD-10-PCS; 2020-09-04)
PROC: 02H633Z Insertion of Infusion Device into Right Atrium, Percutaneous Approach (ICD-10-PCS; 2020-09-06)
PROC: B548ZZA Ultrasonography of Superior Vena Cava, Guidance (ICD-10-PCS; 2020-09-06)
PROC: B5181ZA Fluoroscopy of Superior Vena Cava using Low Osmolar Contrast, Guidance (ICD-10-PCS; 2020-09-06)
PROC: 5A1D70Z Performance of Urinary Filtration, Intermittent, Less than 6 Hours Per Day (ICD-10-PCS; principal; 2020-09-08)
PROC: 30233N1 Transfusion of Nonautologous Red Blood Cells into Peripheral Vein, Percutaneous Approach (ICD-10-PCS; 2020-09-09)
PROC: 5A1D70Z Performance of Urinary Filtration, Intermittent, Less than 6 Hours Per Day (ICD-10-PCS; 2020-09-10)
PROC: 5A1D70Z Performance of Urinary Filtration, Intermittent, Less than 6 Hours Per Day (ICD-10-PCS; 2020-09-13)
PROC: 02H633Z Insertion of Infusion Device into Right Atrium, Percutaneous Approach (ICD-10-PCS; 2020-09-13)
PROC: 0JH63XZ Insertion of Tunneled Vascular Access Device into Chest Subcutaneous Tissue and Fascia, Percutaneous Approach (ICD-10-PCS; 2020-09-13)
PROC: B5181ZA Fluoroscopy of Superior Vena Cava using Low Osmolar Contrast, Guidance (ICD-10-PCS; 2020-09-13)
DX: A41.02 Sepsis due to Methicillin resistant Staphylococcus aureus (principal); N18.6 End stage renal disease; G93.41 Metabolic encephalopathy; R65.21 Severe sepsis with septic shock; E87.2 Acidosis; N25.81 Secondary hyperparathyroidism of renal origin; T82.7XXA Infection and inflammatory reaction due to other cardiac and vascular devices, implants and grafts, initial encounter; Z88.0 Allergy status to penicillin; Z91.018 Allergy to other foods; K21.9 Gastro-esophageal reflux disease without esophagitis; M19.90 Unspecified osteoarthritis, unspecified site; F31.9 Bipolar disorder, unspecified; F20.9 Schizophrenia, unspecified; F41.9 Anxiety disorder, unspecified; Z99.2 Dependence on renal dialysis; F03.90 Unspecified dementia, unspecified severity, without behavioral disturbance, psychotic disturbance, mood disturbance, and anxiety; R79.1 Abnormal coagulation profile; R74.01 Elevation of levels of liver transaminase levels; E87.5 Hyperkalemia; I95.9 Hypotension, unspecified; D63.1 Anemia in chronic kidney disease; E83.39 Other disorders of phosphorus metabolism; Y84.1 Kidney dialysis as the cause of abnormal reaction of the patient, or of later complication, without mention of misadventure at the time of the procedure; G40.909 Epilepsy, unspecified, not intractable, without status epilepticus; E87.6 Hypokalemia; Z20.828 Contact with and (suspected) exposure to other viral communicable diseases
CPT/HCPCS: 36415; 36556; 36558; 70551; 71045; 77001; 78580; 80048; 80053; 80074; 80164; 80202; 81001; 82140; 82728; 82805; 82947; 83036; 83615; 84145; 85007; 85014; 85018; 85025; 85049; 85379; 85520; 85610; 85730; 86140; 86850; 86900; 86901; 86920; 87040; 87076; 87086; 87186; 90471; 93005; 93306; 93312; 93320; 93325; 94760; 96361; 96365; 96372; 96375; 96376; G0378; A9540; C1750; C1752; C1769; C1894; J1100; J1644; J2250; J2704; J3010; J3370; J7040; J7050; P9016; U0003

== ENCOUNTER 2021-01-15 18:37 | Inpatient (IN) | payer MEDICARE ==
--- NOTE | 2021-01-15 19:44 | Emergency Department Report ---
ED General Adult HPI - General Chief complaint: Medical Clearance Stated complaint: im fine PUI?: No Time Seen by Provider: 01/15/21 19:39 Source: patient, EMS ( EMS documentation not available at time of chart dictation ), RN notes reviewed Mode of arrival: Stretcher Limitations: Other (Patient is a poor historian) - History of Present Illness Initial comments: The patient was evaluated in the emergency department for symptoms described in the history of present illness. He/she was evaluated in the context of the global COVID-19 pandemic, which necessitated consideration that the patient might be at risk for infection with the virus that causes COVID-19. Institutional protocols and algorithms that pertain to the evaluation of patients at risk for COVID-19 are in a state of rapid change based on information released by regulatory bodies including the CDC and federal and state organizations. These policies and algorithms were followed during the patient's care in the emergency department. Please note that these policies, procedures and recommendations changed on a rapid basis. Primary CARE doctor: Dr. Luis Grider Nephrology: Dr. Louis Past medical history: End-stage renal disease on hemodialysis, Sunday, , Sunday. Last hemodialysis session today. Indwelling Vas-Cath, anemia, MRSA, type 2 diabetes, malnutrition, end-stage renal disease, schizophrenia, bipolar, dementia, GERD, anxiety, hyperparathyroidism. The patient is a 65-year-old female. She is reportedly sent to the emergency room by a local personal detention/detention/[facility] for acquisition of chest x-ray. It is unclear exactly why the chest x-ray is requested. It appears that she was started on Levaquin today. It is not known if she received Levaquin today. The patient herself complains of chronic discoloration to the dorsal aspect of her right foot. However, she denies headache, neck pain, chest pain, abdominal pain, shortness of breath, loss of taste and smell, she is also not homicidal or suicidal. She is not accompanied by friends or family at this time for collateral information or additional information. Contacted [facility], received verbal report from nursing team. They state that they sent the patient to the emergency room, because she was hypoxic to 78% on room air, and reports that an x-ray showed pneumonia, and thus sent the patient to the emergency room for evaluation Improves with: none Worsens with: none Associated Symptoms: denies other symptoms - Related Data Home Medications Medication Instructions Recorded Confirmed Last Taken LORazepam [Ativan] 1 mg PO BID 08/20/19 09/02/20 03/28/20 17:00 Memantine Xr [Namenda Xr] 5 mg PO DAILY 08/20/19 09/02/20 03/28/20 09:00 Midodrine [Proamatine] 10 mg PO TID 08/20/19 09/02/20 03/28/20 17:00 QUEtiapine [SEROquel] 400 mg PO BID 08/20/19 09/02/20 03/28/20 20:00 Sevelamer Carbonate [Renvela] 0.8 gram PO TIDWM 09/02/20 09/02/20 Unknown Previous Rx's Medication Instructions Recorded Last Taken Type Acetaminophen [Acetaminophen TAB] 650 mg PO Q4H PRN tablet 06/03/19 09/02/20 Rx Pantoprazole [Protonix TAB] 40 mg PO BID tablet 10/12/19 03/28/20 17:00 Rx HYDROcodone/APAP 5-325 [[place] 1 each PO Q6H PRN #24 tablet 03/29/20 Unknown Rx 5-325 mg TAB] Divalproex Dr [Depakote Dr] 750 mg PO BID tablet 09/13/20 Unknown Rx Allergies Allergy/AdvReac Type Severity Reaction Status Date / Time Penicillins Allergy Rash Verified 03/15/20 07:07 corn AdvReac Unknown Verified 03/15/20 07:07 ED Review of Systems ROS: Stated complaint: CAME FOR CHEST X RAY Other details as noted in HPI Constitutional: denies: fever Eyes: denies: eye discharge ENT: denies: epistaxis Respiratory: denies: cough Cardiovascular: denies: chest pain Gastrointestinal: denies: abdominal pain Genitourinary: denies: dysuria Skin: rash (Chronic rash of dorsal aspect of the right foot) Psychiatric: denies: homicidal thoughts, suicidal thoughts Hematological/Lymphatic: denies: easy bleeding ED Past Medical Hx - Past Medical History Hx Hypertension: Yes Hx Heart Attack/AMI: No Hx GERD: Yes Hx Renal Disease: Yes (ESRD) Hx Arthritis: Yes Hx Seizures: Yes Hx Psychiatric Treatment: Yes (bipolar,schizophrenia,severe anxiety) Hx Dementia: Yes Additional medical history: HD - Surgical History Additional Surgical History: hysterectomy, right chest wall permacath - Social History Smoking Status: Unknown if ever smoked - Medications Home Medications: Home Medications Medication Instructions Recorded Confirmed Last Taken Type Acetaminophen [Acetaminophen TAB] 650 mg PO Q4H PRN tablet 06/03/19 09/02/20 09/02/20 Rx LORazepam [Ativan] 1 mg PO BID 08/20/19 09/02/20 03/28/20 17:00 History Memantine Xr [Namenda Xr] 5 mg PO DAILY 08/20/19 09/02/20 03/28/20 09:00 History Midodrine [Proamatine] 10 mg PO TID 08/20/19 09/02/20 03/28/20 17:00 History QUEtiapine [SEROquel] 400 mg PO BID 08/20/19 09/02/20 03/28/20 20:00 History Pantoprazole [Protonix TAB] 40 mg PO BID tablet 10/12/19 09/02/20 03/28/20 17:00 Rx HYDROcodone/APAP 5-325 [[place] 1 each PO Q6H PRN #24 tablet 03/29/20 09/02/20 Unknown Rx 5-325 mg TAB] Sevelamer Carbonate [Renvela] 0.8 gram PO TIDWM 09/02/20 09/02/20 Unknown History Divalproex [Sarina Serrano] 750 mg PO BID tablet 09/13/20 Unknown Rx ED Physical Exam - General Limitations: Other (Patient disorganized and is somewhat of a poor historian) General appearance: alert, anxious, obese - Head Head exam: Present: atraumatic, normocephalic - Eye Eye exam: Present: normal appearance, EOMI. Absent: nystagmus - ENT ENT exam: Present: normal exam, normal orophraynx, mucous membranes moist, normal external ear exam - Neck Neck exam: Present: normal inspection, full ROM. Absent: tenderness, meningismus - Respiratory Respiratory exam: Present: rales, rhonchi (Rales noted in the left hemithorax), other (There is a left-sided vascular access catheter noted, without redness, pus or streaking). Absent: respiratory distress, stridor - Cardiovascular Cardiovascular Exam: Present: regular rate, normal rhythm, normal heart sounds. Absent: bradycardia, tachycardia, irregular rhythm, systolic murmur, diastolic murmur, rubs, gallop - GI/Abdominal GI/Abdominal exam: Present: soft. Absent: distended, tenderness, guarding, rebound, rigid, pulsatile mass - Extremities Exam Extremities exam: Present: normal inspection (Hyperpigmentation noted on the dorsal aspect of the right foot. It is nonblanching. It is nontender.), full ROM (There is a failed left upper extremity graft noted, without redness, pus or streaking), pedal edema (1+ edema on the bilateral lower extremities), other (2+ pulses noted in the bilateral upper and lower extremities. There is no palpable cord. negative Homans sign. Muscular compartments are soft. The pelvis is stable.) - Back Exam Back exam: Present: normal inspection, full ROM. Absent: tenderness, CVA tenderness (R), CVA tenderness (L), paraspinal tenderness, vertebral tenderness - Neurological Exam Neurological exam: Present: alert, other (No facial droop. Tongue midline. Extraocular movements intact bilaterally. Facial sensation intact to light touch in V1, V2, V3 distribution bilaterally. 5 and a 5 strength in 4 extremities. Sensation intact to light touch in 4 extremities.) - Psychiatric Psychiatric exam: Absent: homicidal ideation, suicidal ideation - Skin Skin exam: Present: warm, dry, intact, normal color. Absent: rash ED Course Vital Signs 01/15/21 01/15/21 01/15/21 19:30 19:45 20:15 Temperature 97.8 F Pulse Rate 99 H 96 H 98 H Respiratory 18 21 14 Rate Blood Pressure 114/62 114/62 Blood Pressure 107/66 [Left] O2 Sat by Pulse 98 98 98 Oximetry O2 Sat by Pulse Oximetry [ Digit-Finger] 01/15/21 01/15/21 01/15/21 20:30 20:45 21:00 Temperature Pulse Rate 105 H 94 H 95 H Respiratory 18 14 19 Rate Blood Pressure 104/78 113/78 117/78 Blood Pressure [Left] O2 Sat by Pulse 96 98 94 Oximetry O2 Sat by Pulse Oximetry [ Digit-Finger] 01/15/21 01/15/21 01/15/21 21:15 21:30 21:46 Temperature Pulse Rate 89 85 96 H Respiratory 20 20 13 Rate Blood Pressure 115/80 114/86 115/80 Blood Pressure [Left] O2 Sat by Pulse 99 99 97 Oximetry O2 Sat by Pulse Oximetry [ Digit-Finger] 01/15/21 01/15/21 01/15/21 22:00 22:01 22:15 Temperature Pulse Rate 86 84 Respiratory 16 20 Rate Blood Pressure 117/58 112/48 Blood Pressure [Left] O2 Sat by Pulse 98 100 Oximetry O2 Sat by Pulse 92 Oximetry [ Digit-Finger] 01/15/21 01/15/21 01/15/21 22:30 22:45 23:00 Temperature Pulse Rate 87 83 78 Respiratory 18 17 17 Rate Blood Pressure 122/40 116/68 113/59 Blood Pressure [Left] O2 Sat by Pulse 99 100 100 Oximetry O2 Sat by Pulse Oximetry [ Digit-Finger] 01/15/21 01/15/21 01/15/21 23:15 23:18 23:30 Temperature Pulse Rate 81 80 80 Respiratory 18 19 18 Rate Blood Pressure 114/52 114/52 126/51 Blood Pressure [Left] O2 Sat by Pulse 99 99 99 Oximetry O2 Sat by Pulse Oximetry [ Digit-Finger] 01/15/21 01/16/21 01/16/21 23:45 00:00 00:15 Temperature Pulse Rate 87 82 78 Respiratory 17 18 18 Rate Blood Pressure 125/86 124/55 130/49 Blood Pressure [Left] O2 Sat by Pulse 99 99 98 Oximetry O2 Sat by Pulse Oximetry [ Digit-Finger] 01/16/21 01/16/21 01/16/21 00:30 00:45 01:00 Temperature Pulse Rate 74 73 73 Respiratory 18 17 21 Rate Blood Pressure 135/51 111/69 115/65 Blood Pressure [Left] O2 Sat by Pulse 99 100 94 Oximetry O2 Sat by Pulse Oximetry [ Digit-Finger] 01/16/21 01/16/21 01/16/21 01:15 01:30 01:45 Temperature Pulse Rate 80 89 91 H Respiratory 19 13 20 Rate Blood Pressure 126/69 126/69 126/72 Blood Pressure [Left] O2 Sat by Pulse 98 98 97 Oximetry O2 Sat by Pulse Oximetry [ Digit-Finger] 01/16/21 01/16/21 01/16/21 02:00 02:15 02:30 Temperature Pulse Rate 92 H 93 H 87 Respiratory 15 15 11 L Rate Blood Pressure 117/60 120/58 113/64 Blood Pressure [Left] O2 Sat by Pulse 98 97 100 Oximetry O2 Sat by Pulse Oximetry [ Digit-Finger] 01/16/21 01/16/21 01/16/21 02:45 03:00 03:15 Temperature Pulse Rate 84 80 79 Respiratory 21 18 12 Rate Blood Pressure 107/62 107/75 117/52 Blood Pressure [Left] O2 Sat by Pulse 100 100 100 Oximetry O2 Sat by Pulse Oximetry [ Digit-Finger] 01/16/21 01/16/21 01/16/21 03:30 03:45 04:00 Temperature Pulse Rate 79 75 75 Respiratory 15 13 12 Rate Blood Pressure 111/51 106/52 115/54 Blood Pressure [Left] O2 Sat by Pulse 99 99 100 Oximetry O2 Sat by Pulse Oximetry [ Digit-Finger] 01/16/21 01/16/21 01/16/21 04:15 04:45 05:00 Temperature Pulse Rate 76 70 87 Respiratory 13 12 16 Rate Blood Pressure 125/47 108/53 108/53 Blood Pressure [Left] O2 Sat by Pulse 100 100 100 Oximetry O2 Sat by Pulse Oximetry [ Digit-Finger] 01/16/21 01/16/21 01/16/21 05:15 05:30 05:45 Temperature Pulse Rate 74 74 77 Respiratory 14 16 16 Rate Blood Pressure 109/59 114/57 121/64 Blood Pressure [Left] O2 Sat by Pulse 99 100 100 Oximetry O2 Sat by Pulse Oximetry [ Digit-Finger] 01/16/21 01/16/21 01/16/21 06:00 06:15 06:30 Temperature Pulse Rate 86 74 72 Respiratory 13 17 14 Rate Blood Pressure 118/67 116/66 113/56 Blood Pressure [Left] O2 Sat by Pulse 100 100 100 Oximetry O2 Sat by Pulse Oximetry [ Digit-Finger] 01/16/21 01/16/21 01/16/21 07:00 07:15 07:38 Temperature Pulse Rate 74 72 86 Respiratory 19 13 Rate Blood Pressure 108/69 113/62 113/62 Blood Pressure [Left] O2 Sat by Pulse 100 100 33 L Oximetry O2 Sat by Pulse Oximetry [ Digit-Finger] 01/16/21 01/16/21 01/16/21 07:45 08:00 08:15 Temperature Pulse Rate 75 75 73 Respiratory 12 9 L 13 Rate Blood Pressure 107/61 110/68 127/64 Blood Pressure [Left] O2 Sat by Pulse 100 96 99 Oximetry O2 Sat by Pulse Oximetry [ Digit-Finger] - Reevaluation(s) Reevaluation #1: 01/15/21 21:32 Differential diagnosis, including but not limited to: Pleural effusion, pneu monia, end-stage renal disease, COVID-19, end-stage renal disease on hemodialysis, electrolyte derangement Assessment and plan: 65-year-old female who was sent to the emergency room for hypoxia at her detention, saturating at 92% on room air here in this emergency room, with no acute complaints, found to have large left-sided pleural effusion. She denies physical pain to myself. She has chronic discoloration to the dorsal aspect of her right foot, without redness, pus, streaking, or eviden ce of compartment syndrome. Her EKG is nonspecific but she denies chest pain, elevated troponin is likely a type II troponin leak. It is unclear as to whether or not she received her antibiotics at her detention. She will therefore be given antibiotics here in the emergency room. She has had a history of MRSA in the past, so we will cover with Levaquin and vancomycin. We will also cover with steroids empirically. She will be placed on isolation, to rule out Covid. Courtesy consultation will be placed to infectious disease, and I will defer to the inpatient team to further follow this up. Have contacted nephrology on-call, Dr. Pringle. We have discussed the patient's history, physical, pertinent laboratory studies and imaging studies His group will follow in consultation. Courtesy consultation placed to infectious disease, we will defer to the inpatient team to further follow-up. Start supplemental oxygen. Hospital physician, Dr. Celeste Wayne to admit to [facility] 01/15/21 21:38 01/15/21 22:00 - Pulse Oximetry Interpretation Digit-Finger Initial Pulse Oximetry Readin O2 Sat by Pulse Oximetry: 92 Actions Taken: other (Placed on nasal cannula) ED Medical Decision Making - Lab Data Result diagrams: 01/16/21 04:56 01/16/21 04:56 Lab Results 01/15/21 Range/Units 20:19 WBC 4.7 (4.5-11.0) K/mm3 RBC 4.78 (3.65-5.03) M/mm3 Hgb 13.0 (10.1-14.3) gm/dl Hct 41.8 (30.3-42.9) % MCV 88 (79-97) fl MCH 27 L (28-32) pg MCHC 31 (30-34) % RDW 19.1 H (13.2-15.2) % Plt Count 201 (140-440) K/mm3 Lymph % (Auto) 25.3 (13.4-35.0) % [place] % (Auto) 8.6 H (0.0-7.3) % Eos % (Auto) 6.8 H (0.0-4.3) % Baso % (Auto) 1.3 (0.0-1.8) % Lymph # (Auto) 1.2 (1.2-5.4) K/mm3 [place] # (Auto) 0.4 (0.0-0.8) K/mm3 Eos # (Auto) 0.3 (0.0-0.4) K/mm3 Baso # (Auto) 0.1 (0.0-0.1) K/mm3 Seg Neutrophils % 58.0 (40.0-70.0) % Seg Neutrophils # 2.7 (1.8-7.7) K/mm3 Lab Results 01/15/21 01/15/21 01/15/21 Range/Units 20:19 20:19 20:19 WBC 4.7 (4.5-11.0) K/mm3 RBC 4.78 (3.65-5.03) M/mm3 Hgb 13.0 (10.1-14.3) gm/dl Hct 41.8 (30.3-42.9) % MCV 88 (79-97) fl MCH 27 L (28-32) pg MCHC 31 (30-34) % RDW 19.1 H (13.2-15.2) % Plt Count 201 (140-440) K/mm3 Lymph % (Auto) 25.3 (13.4-35.0) % [place] % (Auto) 8.6 H (0.0-7.3) % Eos % (Auto) 6.8 H (0.0-4.3) % Baso % (Auto) 1.3 (0.0-1.8) % Lymph # (Auto) 1.2 (1.2-5.4) K/mm3 [place] # (Auto) 0.4 (0.0-0.8) K/mm3 Eos # (Auto) 0.3 (0.0-0.4) K/mm3 Baso # (Auto) 0.1 (0.0-0.1) K/mm3 Seg Neutrophils % 58.0 (40.0-70.0) % Seg Neutrophils # 2.7 (1.8-7.7) K/mm3 PT 12.4 (12.2-14.9) Sec. INR 0.93 (0.87-1.13) Sodium 137 (137-145) mmol/L Potassium 3.8 (3.6-5.0) mmol/L Chloride 101.7 (98-107) mmol/L Carbon Dioxide 26 (22-30) mmol/L Anion Gap 13 mmol/L BUN 18 H (7-17) mg/dL Creatinine 2.3 H (0.6-1.2) mg/dL Estimated GFR 26 ml/min BUN/Creatinine Ratio 8 % Glucose 123 H (65-100) mg/dL Lactic Acid (0.7-2.0) mmol/L Calcium 9.2 (8.4-10.2) mg/dL Magnesium 2.00 (1.7-2.3) mg/dL Total Bilirubin 0.20 (0.1-1.2) mg/dL AST 15 (5-40) units/L ALT 8 (7-56) units/L Alkaline Phosphatase 106 (35-129) units/L Total Creatine Kinase (30-135) units/L Troponin T 0.069 H (0.00-0.029) ng/mL Total Protein 6.5 (6.3-8.2) g/dL Albumin 3.0 L (3.9-5) g/dL Albumin/Globulin Ratio 0.9 % Salicylates (2.8-20.0) mg/dL Acetaminophen (10.0-30.0) ug/mL Valproic Acid (50-100) ug/mL 01/15/21 01/15/21 01/15/21 Range/Units 20:19 20:19 20:32 WBC (4.5-11.0) K/mm3 RBC (3.65-5.03) M/mm3 Hgb (10.1-14.3) gm/dl Hct (30.3-42.9) % MCV (79-97) fl MCH (28-32) pg MCHC (30-34) % RDW (13.2-15.2) % Plt Count (140-440) K/mm3 Lymph % (Auto) (13.4-35.0) % [place] % (Auto) (0.0-7.3) % Eos % (Auto) (0.0-4.3) % Baso % (Auto) (0.0-1.8) % Lymph # (Auto) (1.2-5.4) K/mm3 [place] # (Auto) (0.0-0.8) K/mm3 Eos # (Auto) (0.0-0.4) K/mm3 Baso # (Auto) (0.0-0.1) K/mm3 Seg Neutrophils % (40.0-70.0) % Seg Neutrophils # (1.8-7.7) K/mm3 PT (12.2-14.9) Sec. INR (0.87-1.13) Sodium (137-145) mmol/L Potassium (3.6-5.0) mmol/L Chloride (98-107) mmol/L Carbon Dioxide (22-30) mmol/L Anion Gap mmol/L BUN (7-17) mg/dL Creatinine (0.6-1.2) mg/dL Estimated GFR ml/min BUN/Creatinine Ratio % Glucose (65-100) mg/dL Lactic Acid 1.60 (0.7-2.0) mmol/L Calcium (8.4-10.2) mg/dL Magnesium (1.7-2.3) mg/dL Total Bilirubin (0.1-1.2) mg/dL AST (5-40) units/L ALT (7-56) units/L Alkaline Phosphatase (35-129) units/L Total Creatine Kinase 24 L (30-135) units/L Troponin T (0.00-0.029) ng/mL Total Protein (6.3-8.2) g/dL Albumin (3.9-5) g/dL Albumin/Globulin Ratio % Salicylates < 0.3 L (2.8-20.0) mg/dL Acetaminophen (10.0-30.0) ug/mL Valproic Acid 41.8 L (50-100) ug/mL 01/15/21 Range/Units 20:32 WBC (4.5-11.0) K/mm3 RBC (3.65-5.03) M/mm3 Hgb (10.1-14.3) gm/dl Hct (30.3-42.9) % MCV (79-97) fl MCH (28-32) pg MCHC (30-34) % RDW (13.2-15.2) % Plt Count (140-440) K/mm3 Lymph % (Auto) (13.4-35.0) % [place] % (Auto) (0.0-7.3) % Eos % (Auto) (0.0-4.3) % Baso % (Auto) (0.0-1.8) % Lymph # (Auto) (1.2-5.4) K/mm3 [place] # (Auto) (0.0-0.8) K/mm3 Eos # (Auto) (0.0-0.4) K/mm3 Baso # (Auto) (0.0-0.1) K/mm3 Seg Neutrophils % (40.0-70.0) % Seg Neutrophils # (1.8-7.7) K/mm3 PT (12.2-14.9) Sec. INR (0.87-1.13) Sodium (137-145) mmol/L Potassium (3.6-5.0) mmol/L Chloride (98-107) mmol/L Carbon Dioxide (22-30) mmol/L Anion Gap mmol/L BUN (7-17) mg/dL Creatinine (0.6-1.2) mg/dL Estimated GFR ml/min BUN/Creatinine Ratio % Glucose (65-100) mg/dL Lactic Acid (0.7-2.0) mmol/L Calcium (8.4-10.2) mg/dL Magnesium (1.7-2.3) mg/dL Total Bilirubin (0.1-1.2) mg/dL AST (5-40) units/L ALT (7-56) units/L Alkaline Phosphatase (35-129) units/L Total Creatine Kinase (30-135) units/L Troponin T (0.00-0.029) ng/mL Total Protein (6.3-8.2) g/dL Albumin (3.9-5) g/dL Albumin/Globulin Ratio % Salicylates (2.8-20.0) mg/dL Acetaminophen 5.0 L (10.0-30.0) ug/mL Valproic Acid (50-100) ug/mL Lab Results 01/15/21 01/15/21 01/15/21 Range/Units 20:19 20:19 20:19 WBC 4.7 (4.5-11.0) K/mm3 RBC 4.78 (3.65-5.03) M/mm3 Hgb 13.0 (10.1-14.3) gm/dl Hct 41.8 (30.3-42.9) % MCV 88 (79-97) fl MCH 27 L (28-32) pg MCHC 31 (30-34) % RDW 19.1 H (13.2-15.2) % Plt Count 201 (140-440) K/mm3 Lymph % (Auto) 25.3 (13.4-35.0) % [place] % (Auto) 8.6 H (0.0-7.3) % Eos % (Auto) 6.8 H (0.0-4.3) % Baso % (Auto) 1.3 (0.0-1.8) % Lymph # (Auto) 1.2 (1.2-5.4) K/mm3 [place] # (Auto) 0.4 (0.0-0.8) K/mm3 Eos # (Auto) 0.3 (0.0-0.4) K/mm3 Baso # (Auto) 0.1 (0.0-0.1) K/mm3 Seg Neutrophils % 58.0 (40.0-70.0) % Seg Neutrophils # 2.7 (1.8-7.7) K/mm3 PT 12.4 (12.2-14.9) Sec. INR 0.93 (0.87-1.13) Sodium 137 (137-145) mmol/L Potassium 3.8 (3.6-5.0) mmol/L Chloride 101.7 (98-107) mmol/L Carbon Dioxide 26 (22-30) mmol/L Anion Gap 13 mmol/L BUN 18 H (7-17) mg/dL Creatinine 2.3 H (0.6-1.2) mg/dL Estimated GFR 26 ml/min BUN/Creatinine Ratio 8 % Glucose 123 H (65-100) mg/dL Lactic Acid (0.7-2.0) mmol/L Calcium 9.2 (8.4-10.2) mg/dL Magnesium 2.00 (1.7-2.3) mg/dL Total Bilirubin 0.20 (0.1-1.2) mg/dL AST 15 (5-40) units/L ALT 8 (7-56) units/L Alkaline Phosphatase 106 (35-129) units/L Total Creatine Kinase (30-135) units/L Troponin T 0.069 H (0.00-0.029) ng/mL Total Protein 6.5 (6.3-8.2) g/dL Albumin 3.0 L (3.9-5) g/dL Albumin/Globulin Ratio 0.9 % Salicylates (2.8-20.0) mg/dL Acetaminophen (10.0-30.0) ug/mL Valproic Acid (50-100) ug/mL 01/15/21 01/15/21 01/15/21 Range/Units 20:19 20:19 20:32 WBC (4.5-11.0) K/mm3 RBC (3.65-5.03) M/mm3 Hgb (10.1-14.3) gm/dl Hct (30.3-42.9) % MCV (79-97) fl MCH (28-32) pg MCHC (30-34) % RDW (13.2-15.2) % Plt Count (140-440) K/mm3 Lymph % (Auto) (13.4-35.0) % [place] % (Auto) (0.0-7.3) % Eos % (Auto) (0.0-4.3) % Baso % (Auto) (0.0-1.8) % Lymph # (Auto) (1.2-5.4) K/mm3 [place] # (Auto) (0.0-0.8) K/mm3 Eos # (Auto) (0.0-0.4) K/mm3 Baso # (Auto) (0.0-0.1) K/mm3 Seg Neutrophils % (40.0-70.0) % Seg Neutrophils # (1.8-7.7) K/mm3 PT (12.2-14.9) Sec. INR (0.87-1.13) Sodium (137-145) mmol/L Potassium (3.6-5.0) mmol/L Chloride (98-107) mmol/L Carbon Dioxide (22-30) mmol/L Anion Gap mmol/L BUN (7-17) mg/dL Creatinine (0.6-1.2) mg/dL Estimated GFR ml/min BUN/Creatinine Ratio % Glucose (65-100) mg/dL Lactic Acid 1.60 (0.7-2.0) mmol/L Calcium (8.4-10.2) mg/dL Magnesium (1.7-2.3) mg/dL Total Bilirubin (0.1-1.2) mg/dL AST (5-40) units/L ALT (7-56) units/L Alkaline Phosphatase (35-129) units/L Total Creatine Kinase 24 L (30-135) units/L Troponin T (0.00-0.029) ng/mL Total Protein (6.3-8.2) g/dL Albumin (3.9-5) g/dL Albumin/Globulin Ratio % Salicylates < 0.3 L (2.8-20.0) mg/dL Acetaminophen (10.0-30.0) ug/mL Valproic Acid 41.8 L (50-100) ug/mL 01/15/21 Range/Units 20:32 WBC (4.5-11.0) K/mm3 RBC (3.65-5.03) M/mm3 Hgb (10.1-14.3) gm/dl Hct (30.3-42.9) % MCV (79-97) fl MCH (28-32) pg MCHC (30-34) % RDW (13.2-15.2) % Plt Count (140-440) K/mm3 Lymph % (Auto) (13.4-35.0) % [place] % (Auto) (0.0-7.3) % Eos % (Auto) (0.0-4.3) % Baso % (Auto) (0.0-1.8) % Lymph # (Auto) (1.2-5.4) K/mm3 [place] # (Auto) (0.0-0.8) K/mm3 Eos # (Auto) (0.0-0.4) K/mm3 Baso # (Auto) (0.0-0.1) K/mm3 Seg Neutrophils % (40.0-70.0) % Seg Neutrophils # (1.8-7.7) K/mm3 PT (12.2-14.9) Sec. INR (0.87-1.13) Sodium (137-145) mmol/L Potassium (3.6-5.0) mmol/L Chloride (98-107) mmol/L Carbon Dioxide (22-30) mmol/L Anion Gap mmol/L BUN (7-17) mg/dL Creatinine (0.6-1.2) mg/dL Estimated GFR ml/min BUN/Creatinine Ratio % Glucose (65-100) mg/dL Lactic Acid (0.7-2.0) mmol/L Calcium (8.4-10.2) mg/dL Magnesium (1.7-2.3) mg/dL Total Bilirubin (0.1-1.2) mg/dL AST (5-40) units/L ALT (7-56) units/L Alkaline Phosphatase (35-129) units/L Total Creatine Kinase (30-135) units/L Troponin T (0.00-0.029) ng/mL Total Protein (6.3-8.2) g/dL Albumin (3.9-5) g/dL Albumin/Globulin Ratio % Salicylates (2.8-20.0) mg/dL Acetaminophen 5.0 L (10.0-30.0) ug/mL Valproic Acid (50-100) ug/mL Vital Signs 01/15/21 19:30 Temperature 97.8 F Pulse Rate 99 H Respiratory 18 Rate Blood Pressure 107/66 [Left] O2 Sat by Pulse 98 Oximetry - EKG Data -: EKG Interpreted by Me EKG shows normal: sinus rhythm Rate: normal - EKG Data Interpretation: unchanged when compared t 01/15/21 20:27 EKG interpreted at 20: 16 Sinus rhythm, 98 bpm. Normal axis, QTC 364 ms. Low voltage, abnormal EKG, not a STEMI. Compared to prior EKG from March 2020, low voltage appears to be new. - Radiology Data Radiology results: pending, report reviewed, image reviewed interpreted by me: [address] [address] XRay Report Signed Patient: LUIS M PATEL MR#: [id number] : 1955 Acct:[id number] Age/Sex: 65 / F ADM Date: 01/15/21 Loc: ED Attending Dr: Ordering Physician: LEANA SANCHEZ MD Date of Service: 01/15/21 Procedure(s): XR chest routine 2V Accession Number(s): [id number] cc: LEANA SANCHEZ MD Fluoro Time In Minutes: CHEST PA AND LATERAL VIEWS INDICATION: Dyspnea. COMPARISON: 09/02/2020 FINDINGS: Support devices: Right perm catheter has been removed, and a left perm catheter placed, with its tip projected over the right atrium. No pneumothorax Heart: Stable. Lungs/Pleura: There has now developed a small to moderate-sized left pleural effusion. Right lung remains clear. IMPRESSION: 1. Interval development of left pleural effusion, etiology of which is uncertain. Signer Name: Edgardo King MD Signed: 01/15/2021 8:30 PM Workstation Name: [id number] Transcribed By: TM Dictated By: Edgardo King MD Electronically Authenticated By: Edgardo King MD Signed Date/Time: 01/15/212029 DD/ 28 CHEST PA AND LATERAL VIEWS INDICATION: Dyspnea. COMPARISON: 09/02/2020 FINDINGS: Support devices: Right perm catheter has been removed, and a left perm catheter placed, with its tip projected over the right atrium. No pneumothorax Heart: Stable. Lungs/Pleura: There has now developed a small to moderate-sized left pleural effusion. Right lung remains clear. IMPRESSION: 1. Interval development of left pleural effusion, etiology of which is uncertain. Signer Name: Edgardo King MD Signed: 01/15/2021 7:30 PM Workstation Name: [id number] [address] [address] Cat Scan Report Signed Patient: LUIS M PATEL MR#: [id number] : 1955 Acct:[id number] Age/Sex: 65 / F ADM Date: 01/15/21 Loc: 3A A351-[address]: MITCHELL SAMSON MD Ordering Physician: LEANA SANCHEZ MD Date of Service: 01/15/21 Procedure(s): CT chest wo con Accession Number(s): [id number] cc: LEANA SANCHEZ MD CT CHEST WITHOUT CONTRAST INDICATION / CLINICAL INFORMATION: abnormal xr chest, pleural effusion, hypoxia. TECHNIQUE: Axial CT images were obtained through the chest without contrast. All CT scans at this location are performed using CT dose reduction for ALARA by means of automated exposure control. COMPARISON: None available. FINDINGS: There is a large left effusion. There is overlying atelectasis/infiltrate with dense opacity noted. Small increased density and opacity seen within the posterior aspect of the right lung since the right upper lung to the lower lung most significant in the right lower lung with atelectasis and smaller effusion noted. No pneumothorax is seen. Heart size appears normal. There are prominent paratracheal nodes largest measuring 1.3 cm. In the upper abdomen there is a left renal cyst measuring 3.3 cm. Degenerative changes seen throughout spine IMPRESSION: 1. Large left effusion. Small right effusion. 2. Increased densities in bilateral lungs suggest atelectasis however underlying infiltrate not excluded. 3. Mildly prominent mediastinal paratracheal nodes measuring up to 1.4 cm. 4. Left renal cyst. Signer Name: Sohial Hastings MD Signed: 01/16/2021 7:58 AM Workstation Name: [id number] Transcribed By: CW Dictated By: KENNEDI HASTINGS MD Electronically Authenticated By: KENNEDI HASTINGS MD Signed Date/Time: 01/16/21 0758 [id number]/ [id number] Critical care attestation.: If time is entered above; I have spent that time in minutes in the direct care of this critically ill patient, excluding procedure time. ED Disposition Clinical Impression: ESRD (end stage renal disease), Schizophrenia, Suspected 2019 novel coronavirus infection, Hypoxia, Pleural effusion Disposition: OP ADMIT IP TO THIS HOSP Is pt being admited?: Yes Does the pt Need Aspirin: No Condition: Good
--- NOTE | 2021-01-15 20:34 | XRay Report ---
CHEST PA AND LATERAL VIEWS INDICATION: Dyspnea. COMPARISON: 09/02/2020 FINDINGS: Support devices: Right perm catheter has been removed, and a left perm catheter placed, with its tip projected over the right atrium. No pneumothorax Heart: Stable. Lungs/Pleura: There has now developed a small to moderate-sized left pleural effusion. Right lung rem ains clear. IMPRESSION: 1. Interval development of left pleural effusion, etiology of which is uncertain. Signer Name: Edgardo King MD Signed: 01/15/2021 8:30 PM Workstation Name: [id number]
[2021-01-15 20:47] LABS: Basophils # (Auto) 0.1 K/mm3 (0.0-0.1); Basophils % (Auto) 1.3 % (0.0-1.8); Eosinophils # (Auto) 0.3 K/mm3 (0.0-0.4); Eosinophils % (Auto) 6.8 % (0.0-4.3); Hematocrit 41.8 % (30.3-42.9); Lymphocytes # (Auto) 1.2 K/mm3 (1.2-5.4); Lymphocytes % (Auto) 25.3 % (13.4-35.0); Mean Corpuscular HGB Conc 31 % (30-34); Mean Corpuscular Volume 88 fl (79-97); Monocytes # (Auto) 0.4 K/mm3 (0.0-0.8); Monocytes % (Auto) 8.6 % (0.0-7.3); Platelet Count 201 K/mm3 (140-440); Red Blood Count 4.78 M/mm3 (3.65-5.03); Red Cell Distribution Width 19.1 % (13.2-15.2)
[2021-01-15 20:58] LABS: INR 0.93 (0.87-1.13)
[2021-01-15 21:16] LABS: Calcium 9.2 mg/dL (8.4-10.2)
[2021-01-15] MEDS ORDERED: dexAMETHasone 4 MG/ML VIAL IV ONE (21:37)
[2021-01-15 21:40] LABS: Chol/HDL Ratio 4.5 %
[2021-01-15] MEDS ORDERED: VANCOMYCIN 1,500 MG in SODIUM CHLORIDE 0.9% 500 ML 500 ML IV ONE (22:15)
[2021-01-15] MEDS ORDERED: MORPHINE 2 MG/1 ML INJ IV PRN (22:49)
[2021-01-15] MEDS ORDERED: ACETAMINOPHEN 325 MG TAB PO PRN (22:49)
[2021-01-15] MEDS ORDERED: ONDANSETRON 4 MG/2 ML INJ IV PRN (22:49)
[2021-01-15] MEDS ORDERED: MAGNESIUM HYDROXIDE (MOM) ORAL LIQD UDC PO PRN (22:49)
[2021-01-15] MEDS ORDERED: DEXTROSE 50% IN WATER (25GM) 50 ML SYRINGE IV PRN (22:54)
--- NOTE | 2021-01-15 23:01 | History and Physical Report ---
History of Present Illness Date of examination: 01/15/21 Date of admission: 01/15/2021 Chief complaint: Abnormal Chest X-ray History of present illness: 65-year-old female with known history of hypertension, seizure disorder, end- stage renal disease on dialysis, schizophrenia and dementia resident of a [facility] sent to the emergency room today because of low oxygen saturation on room air. She was said to have had a chest x-ray which was suspicious for pneumonia and later sent to the emergency room for evaluation. Patient denies any fever or chills, no chest pain, no nausea vomiting, no abdominal pain. She however indicates that she has had some pain in the right foot with discoloration of the skin on the upper part of her right foot. She denies any trauma to the foot. Work-up in the emergency room today reveals interval development of left pleural effusion Patient is being admitted for possible pneumonia and pleural effusion. She has been placed on empiric IV antibiotics and IV steroid. Past History Past Medical History: arthritis, dialysis, ESRD, GERD, hypertension, seizures, other (Bipolar disorder,Dementia.) Past Surgical History: hysterectomy Social history: no significant social history Family history: no significant family history Medications and Allergies Allergies Allergy/AdvReac Type Severity Reaction Status Date / Time Penicillins Allergy Rash Verified 03/15/20 07:07 corn AdvReac Unknown Verified 03/15/20 07:07 Home Medications Medication Instructions Recorded Confirmed Last Taken Type Acetaminophen [Acetaminophen TAB] 650 mg PO Q4H PRN tablet 06/03/19 09/02/20 09/02/20 Rx LORazepam [Ativan] 1 mg PO BID 08/20/19 09/02/20 03/28/20 17:00 History Memantine Xr [Namenda Xr] 5 mg PO DAILY 08/20/19 09/02/20 03/28/20 09:00 History Midodrine [Proamatine] 10 mg PO TID 08/20/19 09/02/20 03/28/20 17:00 History QUEtiapine [SEROquel] 400 mg PO BID 08/20/19 09/02/20 03/28/20 20:00 History Pantoprazole [Protonix TAB] 40 mg PO BID tablet 10/12/19 09/02/20 03/28/20 17:00 Rx HYDROcodone/APAP 5-325 [[place] 1 each PO Q6H PRN #24 tablet 03/29/20 09/02/20 Unknown Rx 5-325 mg TAB] Sevelamer Carbonate [Renvela] 0.8 gram PO TIDWM 09/02/20 09/02/20 Unknown History Divalproex [Sarina Serrano] 750 mg PO BID tablet 09/13/20 Unknown Rx Active Meds: Active Medications Acetaminophen (Acetaminophen 325 Mg Tab) 650 mg PO Q4H PRN PRN Reason: Pain MILD(1-3)/Fever >100.5/DRAKE Dextrose (Dextrose 50% In Water (25gm) 50 Ml Syringe) 50 ml IV Q30MIN PRN; Protocol PRN Reason: Hypoglycemia Heparin Sodium (Porcine) (Heparin 5,000 Unit/1 Ml Vial) 5,000 unit SUB-Q Q8HR CONNOR Levofloxacin/Dextrose (Levaquin 750mg/150ml) 750 mg in 150 mls @ 100 mls/hr IV ONCE ONE; Protocol Stop: 01/15/21 22:58 Last Admin: 01/15/21 22:30 Dose: 100 mls/hr Documented by: Vancomycin HCl 1,500 mg/ (Sodium Chloride) 530 mls @ 333 mls/hr IV ONCE ONE; Protocol Stop: 01/15/21 23:50 Levofloxacin/Dextrose (Levaquin 750mg/150ml) 750 mg in 150 mls @ 100 mls/hr IV Q24H CONNOR; Protocol Insulin Human Lispro (Insulin Lispro 100 Unit/Ml) 0 unit SUB-Q ACHS CONNOR; Protocol Magnesium Hydroxide (Magnesium Hydroxide (Mom) Oral Liqd Udc) 30 ml PO Q4H PRN PRN Reason: Constipation Morphine Sulfate (Morphine 2 Mg/1 Ml Inj) 2 mg IV Q4H PRN PRN Reason: Pain, Moderate (4-6) Ondansetron HCl (Ondansetron 4 Mg/2 Ml Inj) 4 mg IV Q8H PRN PRN Reason: Nausea And Vomiting Sodium Chloride (Sodium Chloride 0.9% 10 Ml Flush Syringe) 10 ml IV BID CONNOR Sodium Chloride (Sodium Chloride 0.9% 10 Ml Flush Syringe) 10 ml IV PRN PRN PRN Reason: LINE FLUSH Review of Systems Constitutional: no fever, no chills Ears, nose, mouth and throat: no nasal congestion, no sore throat Cardiovascular: no chest pain, no palpitations Respiratory: no cough, no shortness of breath Gastrointestinal: no abdominal pain, no nausea, no vomiting, no diarrhea Genitourinary Female: no flank pain, no dysuria, no hematuria Musculoskeletal: no neck pain, no low back pain Integumentary: no rash, no pruritis Neurological: no headaches, no confusion Psychiatric: no anxiety, no depression Endocrine: no polyphagia, no polydipsia, no polyuria, no nocturia Exam - Constitutional Vitals: Temp Pulse Resp BP Pulse Ox 97.8 F 87 18 122/40 99 01/15/21 19:30 01/15/21 22:30 01/15/21 22:30 01/15/21 22:30 01/15/21 22:30 General appearance: Present: no acute distress, well-nourished - EENT Eyes: Present: PERRL, EOM intact, scleral icterus ENT: hearing intact, clear oral mucosa, dentition normal - Neck Neck: Present: supple, normal ROM - Respiratory Respiratory effort: normal Respiratory: bilateral: CTA - Cardiovascular Rhythm: regular Heart Sounds: Present: S1 & S2. Absent: gallop, systolic murmur, diastolic murmur, rub, click - Extremities Extremities: no ischemia, pulses intact, pulses symmetrical, No edema, normal temperature, normal color, Full ROM Peripheral Pulses: within normal limits - Abdominal General gastrointestinal: Present: soft, non-tender, non-distended, normal bowel sounds. Absent: mass - Integumentary Integumentary: Present: clear, warm, dry. Absent: rash - Musculoskeletal Musculoskeletal: strength equal bilaterally - Psychiatric Psychiatric: appropriate mood/affect, intact judgment & insight, memory intact, cooperative - Neurologic Neurologic: CNII-XII intact, no focal deficits, moves all extremities HEART Score - HEART Score Troponin: Troponin T 0.069 ng/mL (0.00-0.029) H 01/15/21 20:19 Results - Labs CBC & Chem 7: 01/16/21 04:56 01/16/21 04:56 Labs: Abnormal lab results 01/15/21 01/15/21 01/15/21 Range/Units 20:19 20:19 20:19 MCH 27 L (28-32) pg RDW 19.1 H (13.2-15.2) % [place] % (Auto) 8.6 H (0.0-7.3) % Eos % (Auto) 6.8 H (0.0-4.3) % BUN 18 H (7-17) mg/dL Creatinine 2.3 H (0.6-1.2) mg/dL Glucose 123 H (65-100) mg/dL Total Creatine Kinase 24 L (30-135) units/L Troponin T 0.069 H (0.00-0.029) ng/mL Albumin 3.0 L (3.9-5) g/dL Triglycerides 176 H (2-149) mg/dL Cholesterol 225 H (50-199) mg/dL LDL Cholesterol Direct 136 H (50-130) mg/dL Salicylates (2.8-20.0) mg/dL Acetaminophen (10.0-30.0) ug/mL Valproic Acid (50-100) ug/mL 01/15/21 01/15/21 Range/Units 20:32 20:32 MCH (28-32) pg RDW (13.2-15.2) % [place] % (Auto) (0.0-7.3) % Eos % (Auto) (0.0-4.3) % BUN (7-17) mg/dL Creatinine (0.6-1.2) mg/dL Glucose (65-100) mg/dL Total Creatine Kinase (30-135) units/L Troponin T (0.00-0.029) ng/mL Albumin (3.9-5) g/dL Triglycerides (2-149) mg/dL Cholesterol (50-199) mg/dL LDL Cholesterol Direct (50-130) mg/dL Salicylates < 0.3 L (2.8-20.0) mg/dL Acetaminophen 5.0 L (10.0-30.0) ug/mL Valproic Acid 41.8 L (50-100) ug/mL Assessment and Plan - Patient Problems (1) Suspected 2019 novel coronavirus infection Current Visit: Yes Status: Acute Plan to address problem: We will place on isolation precautions. Will await COVID-19 testing. Consult placed to infectious disease for evaluation. (2) ESRD (end stage renal disease) Current Visit: Yes Status: Acute Plan to address problem: Consult placed to nephrology for evaluation. (3) Hypoxia Current Visit: Yes Status: Acute Plan to address problem: Possibly secondary to underlying pneumonia and or pleural effusion. Patient placed on oxygen and will keep O2 saturation greater or equal to 94%. (4) DVT prophylaxis Current Visit: No Status: Acute Plan to address problem: Patient placed on subcutaneous heparin. (5) Full code status Current Visit: Yes Status: Acute Plan to address problem: Patient is full code.
[2021-01-16] MEDS: HEPARIN 5,000 UNIT/1 ML VIAL SUB-Q SCH ×3 (05:42→23:05)
[2021-01-16 06:11] LABS: Calcium 9.1 mg/dL (8.4-10.2)
[2021-01-16 06:23] LABS: Mean Corpuscular HGB Conc 30 % (30-34); Mean Corpuscular Volume 87 fl (79-97); Platelet Count 203 K/mm3 (140-440); Red Blood Count 4.48 M/mm3 (3.65-5.03); Red Cell Distribution Width 19.1 % (13.2-15.2)
[2021-01-16 06:28] LABS: Hematocrit 39.1 % (30.3-42.9); Hemoglobin 11.9 gm/dl (10.1-14.3)
[2021-01-16 06:30] LABS: INR 0.97 (0.87-1.13)
[2021-01-16 06:35] LABS: Basophils % (Auto) 1.1 % (0.0-1.8); Eosinophils % (Auto) 0.4 % (0.0-4.3); Lymphocytes # (Auto) 1.1 K/mm3 (1.2-5.4); Lymphocytes % (Auto) 30.6 % (13.4-35.0); Monocytes # (Auto) 0.1 K/mm3 (0.0-0.8); Monocytes % (Auto) 3.2 % (0.0-7.3)
[2021-01-16] MEDS: INSULIN LISPRO 100 UNIT/ML SUB-Q SCH ×4 (07:55→23:06)
[2021-01-16] MEDS ORDERED: VANCOMYCIN PHARMACY TO DOSE IV SCH (08:00)
--- NOTE | 2021-01-16 08:02 | Cat Scan Report ---
CT CHEST WITHOUT CONTRAST INDICATION / CLINICAL INFORMATION: abnormal xr chest, pleural effusion, hypoxia. TECHNIQUE: Axial CT images were obtained through the chest without contrast. All CT scans at this location are p erformed using CT dose reduction for ALARA by means of automated exposure control. COMPARISON: None available. FINDINGS: There is a large left effusion. There is overlying atelectasis/infiltrate with dense opacity noted. S [place] increased density and opacity seen within the posterior aspect of the right lung since the right upper lung to the lower lung most significant in the right lower lung with atelectasis and smaller e ffusion noted. No pneumothorax is seen. Heart size appears normal. There are prominent paratracheal n odes largest measuring 1.3 cm. In the upper abdomen there is a left renal cyst measuring 3.3 cm. Dege nerative changes seen throughout spine IMPRESSION: 1. Large left effusion. Small right effusion. 2. Increased densities in bilateral lungs suggest atelectasis however underlying infiltrate not exclu ded. 3. Mildly prominent mediastinal paratracheal nodes measuring up to 1.4 cm. 4. Left renal cyst. Signer Name: Sohail Hastings MD Signed: 01/16/2021 7:58 AM Workstation Name: [id number]
--- NOTE | 2021-01-16 09:55 | Consultation ---
History of Present Illness - Reason for Consult Consult date: 01/16/21 end stage renal disease Requesting physician: LEANA SANCHEZ - History of Present Illness Past medical history: End-stage renal disease on hemodialysis, Sunday, , Sunday. Last hemodialysis session today. Indwelling Vas-Cath, anemia, MRSA, type 2 diabetes, malnutrition, end-stage renal disease, schizophrenia, bipolar, dementia, GERD, anxiety, hyperparathyroidism. The patient is a 65-year-old female. She is reportedly sent to the emergency room by a local personal senior living/long term/[facility] for acquisition of chest x-ray. It is unclear exactly why the chest x-ray is requested. It appears that she was started on Levaquin today. It is not known if she received Levaquin today. The patient herself complains of chronic discoloration to the dorsal aspect of her right foot. However, she denies headache, neck pain, chest pain, abdominal pain, shortness of breath, loss of taste and smell, she is also not homicidal or suicidal. She is not accompanied by friends or family at this time for collateral information or additional information. Contacted [facility], received verbal report from nursing team. They state that they sent the patient to the emergency room, because she was hypoxic to 78% on room air, and reports that an x-ray showed pneumonia, and thus sent the patient to the emergency room for evaluation ROS: Stated complaint: CAME FOR CHEST X RAY Other details as noted in HPI Constitutional: denies: fever Eyes: denies: eye discharge ENT: denies: epistaxis Respiratory: denies: cough Cardiovascular: denies: chest pain Gastrointestinal: denies: abdominal pain Genitourinary: denies: dysuria Skin: rash (Chronic rash of dorsal aspect of the right foot) Psychiatric: denies: homicidal thoughts, suicidal thoughts Hematological/Lymphatic: denies: easy bleeding = - Past Medical History Hx Hypertension: Yes Hx Heart Attack/AMI: No Hx GERD: Yes Hx Renal Disease: Yes (ESRD) Hx Arthritis: Yes Hx Seizures: Yes Hx Psychiatric Treatment: Yes (bipolar,schizophrenia,severe anxiety) Hx Dementia: Yes Additional medical history: HD - Surgical History Additional Surgical History: hysterectomy, right chest wall permacath - Social History Smoking Status: Unknown if ever smoked - General Limitations: Other (Patient disorganized and is somewhat of a poor historian) General appearance: alert, anxious, obese - Head Head exam: Present: atraumatic, normocephalic - Eye Eye exam: Present: normal appearance, EOMI. Absent: nystagmus - ENT ENT exam: Present: normal exam, normal orophraynx, mucous membranes moist, normal external ear exam - Neck Neck exam: Present: normal inspection, full ROM. Absent: tenderness, meningismus - Respiratory Respiratory exam: Present: rales, rhonchi (Rales noted in the left hemithorax), other (There is a left-sided vascular access catheter noted, without redness, pus or streaking). Absent: respiratory distress, stridor - Cardiovascular Cardiovascular Exam: Present: regular rate, normal rhythm, normal heart sounds. Absent: bradycardia, tachycardia, irregular rhythm, systolic murmur, diastolic murmur, rubs, gallop - GI/Abdominal GI/Abdominal exam: Present: soft. Absent: distended, tenderness, guarding, rebound, rigid, pulsatile mass - Extremities Exam Extremities exam: Present: normal inspection (Hyperpigmentation noted on the dorsal aspect of the right foot. It is nonblanching. It is nontender.), full ROM (There is a failed left upper extremity graft noted, without redness, pus or streaking), pedal edema (1+ edema on the bilateral lower extremities), other (2+ pulses noted in the bilateral upper and lower extremities. There is no palpable cord. negative Homans sign. Muscular compartments are soft. The pelvis is stable.) - Back Exam Back exam: Present: normal inspection, full ROM. Absent: tenderness, CVA tenderness (R), CVA tenderness (L), paraspinal tenderness, vertebral tenderness - Neurological Exam Neurological exam: Present: alert, other (No facial droop. Tongue midline. Extraocular movements intact bilaterally. Facial sensation intact to light touch in V1, V2, V3 distribution bilaterally. 5 and a 5 strength in 4 extremities. Sensation intact to light touch in 4 extremities.) - Psychiatric Psychiatric exam: Absent: homicidal ideation, suicidal ideation - Skin Skin exam: Present: warm, dry, intact, normal color. Absent: rash Past History Past Medical History: arthritis, dialysis, ESRD, GERD, hypertension, seizures, other (Bipolar disorder,Dementia.) Past Surgical History: hysterectomy Social history: no significant social history Family history: no significant family history Medications and Allergies Allergies Allergy/AdvReac Type Severity Reaction Status Date / Time Penicillins Allergy Rash Verified 03/15/20 07:07 corn AdvReac Unknown Verified 03/15/20 07:07 Home Medications Medication Instructions Recorded Confirmed Last Taken Type Acetaminophen [Acetaminophen TAB] 650 mg PO Q4H PRN tablet 06/03/19 09/02/20 09/02/20 Rx LORazepam [Ativan] 1 mg PO BID 08/20/19 09/02/20 03/28/20 17:00 History Memantine Xr [Namenda Xr] 5 mg PO DAILY 08/20/19 09/02/20 03/28/20 09:00 History Midodrine [Proamatine] 10 mg PO TID 08/20/19 09/02/20 03/28/20 17:00 History QUEtiapine [SEROquel] 400 mg PO BID 08/20/19 09/02/20 03/28/20 20:00 History Pantoprazole [Protonix TAB] 40 mg PO BID tablet 10/12/19 09/02/20 03/28/20 17:00 Rx HYDROcodone/APAP 5-325 [[place] 1 each PO Q6H PRN #24 tablet 03/29/20 09/02/20 Unknown Rx 5-325 mg TAB] Sevelamer Carbonate [Renvela] 0.8 gram PO TIDWM 09/02/20 09/02/20 Unknown History Divalproex [Sarina Serrano] 750 mg PO BID tablet 09/13/20 Unknown Rx Active Meds: Active Medications Acetaminophen (Acetaminophen 325 Mg Tab) 650 mg PO Q4H PRN PRN Reason: Pain MILD(1-3)/Fever >100.5/DRAKE Dexamethasone (Dexamethasone 4 Mg/Ml Vial) 6 mg IV Q24HR CONNOR Dextrose (Dextrose 50% In Water (25gm) 50 Ml Syringe) 0 ml IV Q30MIN PRN; Protocol PRN Reason: Hypoglycemia Heparin Sodium (Porcine) (Heparin 5,000 Unit/1 Ml Vial) 5,000 unit SUB-Q Q8HR CONNOR Last Admin: 01/16/21 05:42 Dose: 5,000 unit Documented by: Levofloxacin/Dextrose (Levaquin 750mg/150ml) 750 mg in 150 mls @ 100 mls/hr IV Q48HR CONNOR; Protocol Levofloxacin/Dextrose (Levaquin 500mg/100ml) 500 mg in 100 mls @ 100 mls/hr IV Q48H [facility] Insulin Human Lispro (Insulin Lispro 100 Unit/Ml) 0 unit SUB-Q ACHS CONNOR; Protocol Last Admin: 01/16/21 07:55 Dose: Not Given Documented by: Magnesium Hydroxide (Magnesium Hydroxide (Mom) Oral Liqd Udc) 30 ml PO Q4H PRN PRN Reason: Constipation Morphine Sulfate (Morphine 2 Mg/1 Ml Inj) 2 mg IV Q4H PRN PRN Reason: Pain, Moderate (4-6) Ondansetron HCl (Ondansetron 4 Mg/2 Ml Inj) 4 mg IV Q8H PRN PRN Reason: Nausea And Vomiting Sodium Chloride (Sodium Chloride 0.9% 10 Ml Flush Syringe) 10 ml IV BID CONNOR Sodium Chloride (Sodium Chloride 0.9% 10 Ml Flush Syringe) 10 ml IV PRN PRN PRN Reason: LINE FLUSH Exam - Vital Signs Vital signs: Vital Signs Temp Pulse Resp BP Pulse Ox 97.8 F 99 H 18 107/66 98 01/15/21 19:30 01/15/21 19:30 01/15/21 19:30 01/15/21 19:30 01/15/21 19:30 Results - Lab Results 01/16/21 04:56 01/16/21 04:56 Most recent lab results Calcium 9.1 mg/dL (8.4-10.2) 01/16/21 04:56 Magnesium 2.00 mg/dL (1.7-2.3) 01/15/21 20:19 Assessment and Plan mpression: * End stage renal disease * COVID PUI * Hypoxia * Pleural Effusion--left>right * Anemia secondary to ESRD * Secondary hyperparathyroidism * Schizophrenia Plan: * Continue HD TTHSAT and prn * uf in am to assist in volume removal * Continue midodrine daily * Abx per primary team * uf as tolerated with HD * Medical management of electrolytes * Dose medications for renal function * Epogen TIW prn * Renal diet
[2021-01-16] MEDS ORDERED: dexAMETHasone 4 MG/ML VIAL IV SCH (10:00)
[2021-01-16] MEDS ORDERED: SODIUM CHLORIDE 0.9% 100 ML IV PRN (10:05)
[2021-01-16] MEDS: MIDODRINE 5 MG TAB PO SCH ×2 (11:41→15:52)
--- NOTE | 2021-01-16 13:15 | Progress Note ---
Assessment and Plan - Patient Problems (1) Suspected 2019 novel coronavirus infection Current Visit: Yes Status: Acute Plan to address problem: We will place on isolation precautions. Will await COVID-19 testing. Consult placed to infectious disease for evaluation. (2) ESRD (end stage renal disease) Current Visit: Yes Status: Acute Plan to address problem: Consult placed to nephrology for evaluation. (3) Hypoxia Current Visit: Yes Status: Acute Plan to address problem: Possibly secondary to underlying pneumonia and or pleural effusion. Patient placed on oxygen and will keep O2 saturation greater or equal to 94%. (4) DVT prophylaxis Current Visit: No Status: Acute Plan to address problem: Patient placed on subcutaneous heparin. (5) Full code status Current Visit: Yes Status: Acute Plan to address problem: Patient is full code. Subjective Date of service: 01/16/21 Interval history: 65-year-old female with known history of hypertension, seizure disorder, end- stage renal disease on dialysis, schizophrenia and dementia resident of a residential sent to the emergency room today because of low oxygen saturation on room air. She was said to have had a chest x-ray which was suspicious for pneumonia and later sent to the emergency room for evaluation. Patient denies any fever or chills, no chest pain, no nausea vomiting, no abdominal pain. She however indicates that she has had some pain in the right foot with discoloration of the skin on the upper part of her right foot. She denies any trauma to the foot. Work-up in the emergency room today reveals interval development of left pleural effusion Patient is being admitted for possible pneumonia and pleural effusion. She has been placed on empiric IV antibiotics and IV steroid. Objective - Constitutional Vitals: Vital Signs - 12hr 01/16/21 01/16/21 01/16/21 01:15 01:30 01:45 Pulse Rate 80 89 91 H Respiratory 19 13 20 Rate Blood Pressure 126/69 126/69 126/72 O2 Sat by Pulse 98 98 97 Oximetry 01/16/21 01/16/21 01/16/21 02:00 02:15 02:30 Pulse Rate 92 H 93 H 87 Respiratory 15 15 11 L Rate Blood Pressure 117/60 120/58 113/64 O2 Sat by Pulse 98 97 100 Oximetry 01/16/21 01/16/21 01/16/21 02:45 03:00 03:15 Pulse Rate 84 80 79 Respiratory 21 18 12 Rate Blood Pressure 107/62 107/75 117/52 O2 Sat by Pulse 100 100 100 Oximetry 01/16/21 01/16/21 01/16/21 03:30 03:45 04:00 Pulse Rate 79 75 75 Respiratory 15 13 12 Rate Blood Pressure 111/51 106/52 115/54 O2 Sat by Pulse 99 99 100 Oximetry 01/16/21 01/16/21 01/16/21 04:15 04:45 05:00 Pulse Rate 76 70 87 Respiratory 13 12 16 Rate Blood Pressure 125/47 108/53 108/53 O2 Sat by Pulse 100 100 100 Oximetry 01/16/21 01/16/21 01/16/21 05:15 05:30 05:45 Pulse Rate 74 74 77 Respiratory 14 16 16 Rate Blood Pressure 109/59 114/57 121/64 O2 Sat by Pulse 99 100 100 Oximetry 01/16/21 01/16/21 01/16/21 06:00 06:15 06:30 Pulse Rate 86 74 72 Respiratory 13 17 14 Rate Blood Pressure 118/67 116/66 113/56 O2 Sat by Pulse 100 100 100 Oximetry 01/16/21 01/16/21 01/16/21 07:00 07:15 07:38 Pulse Rate 74 72 86 Respiratory 19 13 Rate Blood Pressure 108/69 113/62 113/62 O2 Sat by Pulse 100 100 33 L Oximetry 01/16/21 01/16/21 01/16/21 07:45 08:00 08:15 Pulse Rate 75 75 73 Respiratory 12 9 L 13 Rate Blood Pressure 107/61 110/68 127/64 O2 Sat by Pulse 100 96 99 Oximetry 01/16/21 08:40 Pulse Rate Respiratory Rate Blood Pressure O2 Sat by Pulse 100 Oximetry General appearance: Present: no acute distress, well-nourished - EENT Eyes: PERRL, EOM intact ENT: hearing intact, clear oral mucosa Ears: bilateral: normal - Neck Neck: supple, normal ROM - Respiratory Respiratory effort: normal Respiratory: bilateral: CTA - Breasts Breasts: normal - Cardiovascular Heart rate: 78 Rhythm: regular Heart Sounds: Present: S1 & S2. Absent: gallop, rub Extremities: pulses intact, No edema, normal color, Full ROM - Gastrointestinal General gastrointestinal: Present: soft, non-tender, non-distended, normal bowel sounds - Genitourinary Female genitourinary: normal - Integumentary Integumentary: clear, warm, dry - Musculoskeletal Musculoskeletal: 1, strength equal bilaterally - Neurologic Neurologic: moves all extremities - Psychiatric Psychiatric: memory intact, appropriate mood/affect, intact judgment & insight - Labs CBC & Chem 7: 01/16/21 04:56 01/16/21 04:56 Labs: Abnormal lab results 01/15/21 01/15/21 01/15/21 Range/Units 20:19 20:19 20:19 WBC (4.5-11.0) K/mm3 MCH 27 L (28-32) pg RDW 19.1 H (13.2-15.2) % [place] % (Auto) 8.6 H (0.0-7.3) % Eos % (Auto) 6.8 H (0.0-4.3) % Lymph # (Auto) (1.2-5.4) K/mm3 Sodium (137-145) mmol/L BUN 18 H (7-17) mg/dL Creatinine 2.3 H (0.6-1.2) mg/dL Glucose 123 H (65-100) mg/dL Total Creatine Kinase 24 L (30-135) units/L Troponin T 0.069 H (0.00-0.029) ng/mL Albumin 3.0 L (3.9-5) g/dL Triglycerides 176 H (2-149) mg/dL Cholesterol 225 H (50-199) mg/dL LDL Cholesterol Direct 136 H (50-130) mg/dL Salicylates (2.8-20.0) mg/dL Acetaminophen (10.0-30.0) ug/mL Valproic Acid (50-100) ug/mL 01/15/21 01/15/21 01/16/21 Range/Units 20:32 20:32 04:56 WBC 3.7 L (4.5-11.0) K/mm3 MCH 27 L (28-32) pg RDW 19.1 H (13.2-15.2) % [place] % (Auto) (0.0-7.3) % Eos % (Auto) (0.0-4.3) % Lymph # (Auto) 1.1 L (1.2-5.4) K/mm3 Sodium (137-145) mmol/L BUN (7-17) mg/dL Creatinine (0.6-1.2) mg/dL Glucose (65-100) mg/dL Total Creatine Kinase (30-135) units/L Troponin T (0.00-0.029) ng/mL Albumin (3.9-5) g/dL Triglycerides (2-149) mg/dL Cholesterol (50-199) mg/dL LDL Cholesterol Direct (50-130) mg/dL Salicylates < 0.3 L (2.8-20.0) mg/dL Acetaminophen 5.0 L (10.0-30.0) ug/mL Valproic Acid 41.8 L (50-100) ug/mL 01/16/21 Range/Units 04:56 WBC (4.5-11.0) K/mm3 MCH (28-32) pg RDW (13.2-15.2) % [place] % (Auto) (0.0-7.3) % Eos % (Auto) (0.0-4.3) % Lymph # (Auto) (1.2-5.4) K/mm3 Sodium 136 L (137-145) mmol/L BUN 24 H (7-17) mg/dL Creatinine 2.8 H (0.6-1.2) mg/dL Glucose 108 H (65-100) mg/dL Total Creatine Kinase (30-135) units/L Troponin T (0.00-0.029) ng/mL Albumin (3.9-5) g/dL Triglycerides (2-149) mg/dL Cholesterol (50-199) mg/dL LDL Cholesterol Direct (50-130) mg/dL Salicylates (2.8-20.0) mg/dL Acetaminophen (10.0-30.0) ug/mL Valproic Acid (50-100) ug/mL HEART Score - HEART Score Troponin: Troponin T 0.069 ng/mL (0.00-0.029) H 01/15/21 20:19
--- NOTE | 2021-01-16 13:43 | Consultation ---
History of Present Illness - Reason for Consult Consult date: 01/16/21 COVID vs pneumonia Requesting physician: LEANA SANCHEZ - History of Present Illness 65-year-old female with history of hypertension, anemia, end-stage renal disease on hemodialysis, known to our service due to MRSA bacteremia in August 2020 secondary to PermCath infection; admitted [facility] 01[facility]15/2021 [facility]. Patient is not the best historian. On arrival, temp erature 97.8, HR 99, RR 18, BP 107/66, O2 sats 98%. Initial WBC 4.7. Blood culture on 01/15/2021 pending. Chest x-ray with left moderate pleural effusion. CT chest shows a large left-sided pleural effusion and bilateral pulmonary densities. Review of Systems: Unable to obtain, patient is not the best historian Past History Past Medical History: arthritis, dialysis, ESRD, GERD, hypertension, seizures, other (Bipolar disorder,Dementia.) Past Surgical History: hysterectomy Social history: no significant social history Family history: no significant family history Medications and Allergies Allergies Allergy/AdvReac Type Severity Reaction Status Date / Time Penicillins Allergy Rash Verified 03/15/20 07:07 corn AdvReac Unknown Verified 03/15/20 07:07 Home Medications Medication Instructions Recorded Confirmed Last Taken Type Acetaminophen [Acetaminophen TAB] 650 mg PO Q4H PRN tablet 06/03/19 09/02/20 09/02/20 Rx LORazepam [Ativan] 1 mg PO BID 08/20/19 09/02/20 03/28/20 17:00 History Memantine Xr [Namenda Xr] 5 mg PO DAILY 08/20/19 09/02/20 03/28/20 09:00 History Midodrine [Proamatine] 10 mg PO TID 08/20/19 09/02/20 03/28/20 17:00 History QUEtiapine [SEROquel] 400 mg PO BID 08/20/19 09/02/20 03/28/20 20:00 History Pantoprazole [Protonix TAB] 40 mg PO BID tablet 10/12/19 09/02/20 03/28/20 17:00 Rx HYDROcodone/APAP 5-325 [[place] 1 each PO Q6H PRN #24 tablet 03/29/20 09/02/20 Unknown Rx 5-325 mg TAB] Sevelamer Carbonate [Renvela] 0.8 gram PO TIDWM 09/02/20 09/02/20 Unknown History Divalproex [Sarina Serrano] 750 mg PO BID tablet 09/13/20 Unknown Rx Active Meds: Active Medications Acetaminophen (Acetaminophen 325 Mg Tab) 650 mg PO Q4H PRN PRN Reason: Pain MILD(1-3)/Fever >100.5/DRAKE Dexamethasone (Dexamethasone 4 Mg/Ml Vial) 6 mg IV Q24HR [facility] Last Admin: 01/16/21 11:41 Dose: 6 mg Documented by: Dextrose (Dextrose 50% In Water (25gm) 50 Ml Syringe) 0 ml IV Q30MIN PRN; Pr otocol PRN Reason: Hypoglycemia Heparin Sodium (Porcine) (Heparin 5,000 Unit/1 Ml Vial) 5,000 unit SUB-Q Q8HR [facility] Last Admin: 01/16/21 05:42 Dose: 5,000 unit Documented by: Levofloxacin/Dextrose (Levaquin 750mg/150ml) 750 mg in 150 mls @ 100 mls/hr IV Q48HR [facility]; Protocol Levofloxacin/Dextrose (Levaquin 500mg/100ml) 500 mg in 100 mls @ 100 mls/hr IV Q48H [facility] Sodium Chloride (Nacl 0.9%) 100 mls @ 999 mls/hr IV BIANCA PRN PRN Reason: Hypotension Insulin Human Lispro (Insulin Lispro 100 Unit/Ml) 0 unit SUB-Q ACHS [facility]; Protocol Last Admin: 01/16/21 11:56 Dose: Not Given Documented by: Midodrine (Midodrine 5 Mg Tab) 10 mg PO TID@0800,1200,1600 [facility] Last Admin: 01/16/21 11:41 Dose: 10 mg Documented by: Morphine Sulfate (Morphine 2 Mg/1 Ml Inj) 2 mg IV Q4H PRN PRN Reason: Pain, Moderate (4-6) Ondansetron HCl (Ondansetron 4 Mg/2 Ml Inj) 4 mg IV Q8H PRN PRN Reason: Nausea And Vomiting Sodium Chloride (Sodium Chloride 0.9% 10 Ml Flush Syringe) 10 ml IV BID [facility] Last Admin: 01/16/21 11:41 Dose: 10 ml Documented by: Sodium Chloride (Sodium Chloride 0.9% 10 Ml Flush Syringe) 10 ml IV PRN PRN PRN Reason: LINE FLUSH Physical Examination - Physical Exam Narrative exam: General appearance: Alert in no acute distress confused Eyes: anicteric sclerae, moist conjunctivae; no lid-lag; PERRLA HENT: Normocephalic, Atraumatic; normal external ears, nares open, oropharynx limited Neck: supple, tracheal midline, no JVD Lungs: Diminished breath sounds bilaterally CV: Tachycardic Abdomen: Soft, non-tender; no masses or hepatosplenomegaly Extremities: Bilateral atrophic lower extremities Skin: No rash. Psych: no agitated Neuro: Alert, confused - Constitutional Vitals: Vital Signs Temp Pulse Resp BP Pulse Ox 97.8 F 73 13 127/64 100 01/15/21 19:30 01/16/21 08:15 01/16/21 08:15 01/16/21 08:15 01/16/21 08:40 Temperature -Last 24 Hours Temperature 97.8 F Results - Labs CBC & Chem 7: 01/16/21 04:56 01/16/21 04:56 Labs: Abnormal lab results 01/15/21 01/15/21 01/15/21 Range/Units 20:19 20:19 20:19 WBC (4.5-11.0) K/mm3 MCH 27 L (28-32) pg RDW 19.1 H (13.2-15.2) % [place] % (Auto) 8.6 H (0.0-7.3) % Eos % (Auto) 6.8 H (0.0-4.3) % Lymph # (Auto) (1.2-5.4) K/mm3 Sodium (137-145) mmol/L BUN 18 H (7-17) mg/dL Creatinine 2.3 H (0.6-1.2) mg/dL Glucose 123 H (65-100) mg/dL Total Creatine Kinase 24 L (30-135) units/L Troponin T 0.069 H (0.00-0.029) ng/mL Albumin 3.0 L (3.9-5) g/dL Triglycerides 176 H (2-149) mg/dL Cholesterol 225 H (50-199) mg/dL LDL Cholesterol Direct 136 H (50-130) mg/dL Salicylates (2.8-20.0) mg/dL Acetaminophen (10.0-30.0) ug/mL Valproic Acid (50-100) ug/mL 01/15/21 01/15/21 01/16/21 Range/Units 20:32 20:32 04:56 WBC 3.7 L (4.5-11.0) K/mm3 MCH 27 L (28-32) pg RDW 19.1 H (13.2-15.2) % [place] % (Auto) (0.0-7.3) % Eos % (Auto) (0.0-4.3) % Lymph # (Auto) 1.1 L (1.2-5.4) K/mm3 Sodium (137-145) mmol/L BUN (7-17) mg/dL Creatinine (0.6-1.2) mg/dL Glucose (65-100) mg/dL Total Creatine Kinase (30-135) units/L Troponin T (0.00-0.029) ng/mL Albumin (3.9-5) g/dL Triglycerides (2-149) mg/dL Cholesterol (50-199) mg/dL LDL Cholesterol Direct (50-130) mg/dL Salicylates < 0.3 L (2.8-20.0) mg/dL Acetaminophen 5.0 L (10.0-30.0) ug/mL Valproic Acid 41.8 L (50-100) ug/mL 01/16/21 Range/Units 04:56 WBC (4.5-11.0) K/mm3 MCH (28-32) pg RDW (13.2-15.2) % [place] % (Auto) (0.0-7.3) % Eos % (Auto) (0.0-4.3) % Lymph # (Auto) (1.2-5.4) K/mm3 Sodium 136 L (137-145) mmol/L BUN 24 H (7-17) mg/dL Creatinine 2.8 H (0.6-1.2) mg/dL Glucose 108 H (65-100) mg/dL Total Creatine Kinase (30-135) units/L Troponin T (0.00-0.029) ng/mL Albumin (3.9-5) g/dL Triglycerides (2-149) mg/dL Cholesterol (50-199) mg/dL LDL Cholesterol Direct (50-130) mg/dL Salicylates (2.8-20.0) mg/dL Acetaminophen (10.0-30.0) ug/mL Valproic Acid (50-100) ug/mL Assessment and Plan Cultures: Blood culture on 01/15/2021 pending. Assessment: 65-year-old female with history of hypertension, anemia, end-stage renal disease on hemodialysis, known to our service due to MRSA bacteremia in August 2020 secondary to PermCath infection; admitted on 01/15/2021 [facility]: #SIRS: Present on admission with tachycardia, hypotension, likely secondary to large left-sided pleural effusion. #Large left-sided pleural effusion: Possibly secondary to volume overload. Less likely empyema. No obvious consolidation. #Transient hypoxia: [facility] patient currently on room air. Likely due to pleural effusion. Should rule out COVID-19 infection. #ESRD: On hemodialysis PermCath #History of MRSA bacteremia in August 2020 secondary to PermCath infection. Recommendations: -Pulmonary consult for pleural effusion evaluation, consider thoracentesis -Follow-up SARS-CoV-2 PCR, doubt COVID19 -SARS-CoV-2 PCR is positive, no indication for dexamethasone patient is not hypoxic at this time -Continue Levaquin renally adjusted for now, will probably stop soon -Follow-up blood cultures Will follow. Jolynn Walker MD Infectious Diseases [employer] [facility] M [phone] O [phone]
--- NOTE | 2021-01-16 15:08 | Consultation ---
History of Present Illness Consult date: 01/16/21 Reason for consult: hypoxemia History of present illness: 65-year-old female with known history of hypertension, seizure disorder, end- stage renal disease on dialysis, schizophrenia and dementia resident of a correction sent to the emergency room today because of low oxygen saturation on room air. She was said to have had a chest x-ray which was suspicious for pneumonia and later sent to the emergency room for evaluation. Patient denies any fever or chills, no chest pain, no nausea vomiting, no abdominal pain. She however indicates that she has had some pain in the right foot with discoloration of the skin on the upper part of her right foot. She denies any trauma to the foot. Work-up in the emergency room reveals interval development of left pleural effusion and hence this consultation Past History Past Medical History: arthritis, dialysis, ESRD, GERD, hypertension, seizures, other (Bipolar disorder,Dementia.) Past Surgical History: hysterectomy Social history: no significant social history Family history: no significant family history Medications and Allergies Allergies Allergy/AdvReac Type Severity Reaction Status Date / Time Penicillins Allergy Rash Verified 03/15/20 07:07 corn AdvReac Unknown Verified 03/15/20 07:07 Home Medications Medication Instructions Recorded Confirmed Last Taken Type Acetaminophen [Acetaminophen TAB] 650 mg PO Q4H PRN tablet 06/03/19 09/02/20 09/02/20 Rx LORazepam [Ativan] 1 mg PO BID 08/20/19 09/02/20 03/28/20 17:00 History Memantine Xr [Namenda Xr] 5 mg PO DAILY 08/20/19 09/02/20 03/28/20 09:00 History Midodrine [Proamatine] 10 mg PO TID 08/20/19 09/02/20 03/28/20 17:00 History QUEtiapine [SEROquel] 400 mg PO BID 08/20/19 09/02/20 03/28/20 20:00 History Pantoprazole [Protonix TAB] 40 mg PO BID tablet 10/12/19 09/02/20 03/28/20 17:00 Rx HYDROcodone/APAP 5-325 [[place] 1 each PO Q6H PRN #24 tablet 03/29/20 09/02/20 Unknown Rx 5-325 mg TAB] Sevelamer Carbonate [Renvela] 0.8 gram PO TIDWM 09/02/20 09/02/20 Unknown History Divalproex [Sarina Serrano] 750 mg PO BID tablet 09/13/20 Unknown Rx Active Meds: Active Medications Acetaminophen (Acetaminophen 325 Mg Tab) 650 mg PO Q4H PRN PRN Reason: Pain MILD(1-3)/Fever >100.5/DRAKE Dexamethasone (Dexamethasone 4 Mg/Ml Vial) 6 mg IV Q24HR [facility] Last Admin: 01/16/21 11:41 Dose: 6 mg Documented by: Dextrose (Dextrose 50% In Water (25gm) 50 Ml Syringe) 0 ml IV Q30MIN PRN; Protocol PRN Reason: Hypoglycemia Heparin Sodium (Porcine) (Heparin 5,000 Unit/1 Ml Vial) 5,000 unit SUB-Q Q8HR [facility] Last Admin: 01/16/21 05:42 Dose: 5,000 unit Documented by: Levofloxacin/Dextrose (Levaquin 750mg/150ml) 750 mg in 150 mls @ 100 mls/hr IV Q48HR [facility]; Protocol Levofloxacin/Dextrose (Levaquin 500mg/100ml) 500 mg in 100 mls @ 100 mls/hr IV Q48H [facility] Sodium Chloride (Nacl 0.9%) 100 mls @ 999 mls/hr IV BIANCA PRN PRN Reason: Hypotension Insulin Human Lispro (Insulin Lispro 100 Unit/Ml) 0 unit SUB-Q ACHS [facility]; Protocol Last Admin: 01/16/21 11:56 Dose: Not Given Documented by: Midodrine (Midodrine 5 Mg Tab) 10 mg PO TID@0800,1200,1600 [facility] Last Admin: 01/16/21 11:41 Dose: 10 mg Documented by: Morphine Sulfate (Morphine 2 Mg/1 Ml Inj) 2 mg IV Q4H PRN PRN Reason: Pain, Moderate (4-6) Ondansetron HCl (Ondansetron 4 Mg/2 Ml Inj) 4 mg IV Q8H PRN PRN Reason: Nausea And Vomiting Sodium Chloride (Sodium Chloride 0.9% 10 Ml Flush Syringe) 10 ml IV BID [facility] Last Admin: 01/16/21 11:41 Dose: 10 ml Documented by: Sodium Chloride (Sodium Chloride 0.9% 10 Ml Flush Syringe) 10 ml IV PRN PRN PRN Reason: LINE FLUSH Review of Systems All systems: negative Physical Examination Vital signs: Vital Signs Temp Pulse Resp BP Pulse Ox 97.8 F 99 H 18 107/66 98 01/15/21 19:30 01/15/21 19:30 01/15/21 19:30 01/15/21 19:30 01/15/21 19:30 General appearance: no acute distress, alert ENT: oropharynx moist Neck: supple, no JVD Effort: normal Ascultation: Left: diminished breath sounds (Left base) Percussion: Left: dull (Left base) Tactile fremitus: Left: diminished (Left base) Cardiovascular: regular rate and rhythm, other (Vas-Cath in left subclavian vein) Gastrointestinal: normoactive bowel sounds, non-tender Integumentary: normal Extremities: no cyanosis, no edema, pink and warm Gait: other (Not tested) normal mental status mood appropriate Results - Laboratory Findings CBC and BMP: 01/16/21 04:56 01/16/21 04:56 PT/INR, D-dimer PT 12.8 Sec. (12.2-14.9) 01/16/21 04:56 INR 0.97 (0.87-1.13) 01/16/21 04:56 Abnormal lab findings: Abnormal Labs 01/15/21 01/15/21 01/15/21 20:19 20:19 20:19 WBC MCH 27 L RDW 19.1 H [place] % (Auto) 8.6 H Eos % (Auto) 6.8 H Lymph # (Auto) Sodium BUN 18 H Creatinine 2.3 H Glucose 123 H Total Creatine Kinase 24 L Troponin T 0.069 H Albumin 3.0 L Triglycerides 176 H Cholesterol 225 H LDL Cholesterol Direct 136 H Salicylates Acetaminophen Valproic Acid 01/15/21 01/15/21 01/16/21 20:32 20:32 04:56 WBC 3.7 L MCH 27 L RDW 19.1 H [place] % (Auto) Eos % (Auto) Lymph # (Auto) 1.1 L Sodium BUN Creatinine Glucose Total Creatine Kinase Troponin T Albumin Triglycerides Cholesterol LDL Cholesterol Direct Salicylates < 0.3 L Acetaminophen 5.0 L Valproic Acid 41.8 L 01/16/21 04:56 WBC MCH RDW [place] % (Auto) Eos % (Auto) Lymph # (Auto) Sodium 136 L BUN 24 H Creatinine 2.8 H Glucose 108 H Total Creatine Kinase Troponin T Albumin Triglycerides Cholesterol LDL Cholesterol Direct Salicylates Acetaminophen Valproic Acid - Diagnostic Findings Chest x-ray: image reviewed (Moderate to large left pleural effusion) CT scan - chest: image reviewed (Large left pleural effusion) Assessment and Plan Impression: Large left pleural effusion likely related to renal failure Hypoxemia secondary to above End-stage renal disease on hemodialysis Hypertension. Recommendation: Will order left thoracentesis for tomorrow Dialysis as per renal
[2021-01-17] MEDS: HEPARIN 5,000 UNIT/1 ML VIAL SUB-Q SCH ×2 (05:11→15:26)
--- NOTE | 2021-01-17 09:26 | Progress Note ---
Assessment and Plan Impression: * End stage renal disease * COVID-19 PUI * Hypoxia * Pleural Effusion--left>right * Anemia secondary to ESRD * Secondary hyperparathyroidism * Schizophrenia Plan: * Continue HD TTHSAT and prn, plan for regular HD tomorrow * UF removal this AM given presence of pleural effusion to assist in volume removal * Continue midodrine daily * Abx per primary team, ID * UF as tolerated with HD * Medical management of electrolytes prn and with HD * Dose medications for renal function * Epogen TIW prn, not currently indicated * Renal diet Subjective Date of service: 01/17/21 Interval history: No acute issues noted from prior Objective - Exam Narrative Exam: Patient not directly examined due to COVID-19 rule out, need to limit PPE. Thorough chart review performed, with review of physical examination of primary team - Vital Signs Vital signs: Vital Signs - 12hr 01/16/21 01/17/21 22:01 05:43 Temperature 98.9 F 98.0 F Pulse Rate 81 83 Respiratory 18 18 Rate Blood Pressure 143/84 125/56 O2 Sat by Pulse 97 95 Oximetry - Lab 01/16/21 04:56 01/16/21 04:56 Most recent lab results Calcium 9.1 mg/dL (8.4-10.2) 01/16/21 04:56 Magnesium 2.00 mg/dL (1.7-2.3) 01/15/21 20:19 Medications & Allergies - Medications Allergies/Adverse Reactions: Allergies Penicillins Allergy (Verified 03/15/20 07:07) Rash corn Adverse Reaction (Verified 03/15/20 07:07) Unknown Home Medications: Home Medications Medication Instructions Recorded Confirmed Last Taken Type Acetaminophen [Acetaminophen TAB] 650 mg PO Q4H PRN tablet 06/03/19 09/02/20 09/02/20 Rx LORazepam [Ativan] 1 mg PO BID 08/20/19 09/02/20 03/28/20 17:00 History Memantine Xr [Namenda Xr] 5 mg PO DAILY 08/20/19 09/02/20 03/28/20 09:00 History Midodrine [Proamatine] 10 mg PO TID 08/20/19 09/02/20 03/28/20 17:00 History QUEtiapine [SEROquel] 400 mg PO BID 08/20/19 09/02/2020 20:00 History Pantoprazole [Protonix TAB] 40 mg PO BID tablet 10/12/19 09/02/20 03/28/20 17:00 Rx HYDROcodone/APAP 5-325 [[place] 1 each PO Q6H PRN #24 tablet 03/29/20 09/02/20 Unknown Rx 5-325 mg TAB] Sevelamer Carbonate [Renvela] 0.8 gram PO TIDWM 09/02/20 09/02/20 Unknown History Divalproex [Sarina Serrano] 750 mg PO BID tablet 09/13/20 Unknown Rx Active Medications: Generic Name Dose Route Start Last Admin Trade Name Freq PRN Reason Stop Dose Admin Acetaminophen 650 mg 01/15/21 22:49 Acetaminophen 325 Mg Tab PO Q4H PRN Pain MILD(1-3)/Fever >100.5/DRAKE Dexamethasone 6 mg 01/16/21 10:00 01/16/21 11:41 Dexamethasone 4 Mg/Ml Vial IV 6 mg Q24HR [facility] Administration Dextrose 0 ml 01/15/21 22:54 Dextrose 50% In Water (25gm) 50 Ml Syringe IV Q30MIN PRN Hypoglycemia Protocol Heparin Sodium (Porcine) 5,000 unit 01/16/21 06:00 01/17/21 05:11 Heparin 5,000 Unit/1 Ml Vial SUB-Q 5,000 unit Q8HR [facility] Administration Sodium Chloride 100 mls @ 999 mls/hr 01/16/21 10:05 Nacl 0.9% IV [facility] PRN Hypotension Levofloxacin/Dextrose 500 mg in 100 mls @ 100 mls/hr 01/17/21 18:00 Levaquin 500mg/100ml IV Q48H [facility] Insulin Human Lispro 0 unit 01/16/21 07:30 01/16/21 23:06 Insulin Lispro 100 Unit/Ml SUB-Q Not Given ACHS [facility] Protocol Midodrine 10 mg 01/16/21 12:00 01/16/21 15:52 Midodrine 5 Mg Tab PO 10 mg TID@0800,1200,1600 [facility] Administration Morphine Sulfate 2 mg 01/15/21 22:49 Morphine 2 Mg/1 Ml Inj IV Q4H PRN Pain, Moderate (4-6) Ondansetron HCl 4 mg 01/15/21 22:49 Ondansetron 4 Mg/2 Ml Inj IV Q8H PRN Nausea And Vomiting Sodium Chloride 10 ml 01/16/21 10:00 01/16/21 23:07 Sodium Chloride 0.9% 10 Ml Flush Syringe IV 10 ml BID [facility] Administration Sodium Chloride 10 ml 01/15/21 22:49 Sodium Chloride 0.9% 10 Ml Flush Syringe IV PRN PRN LINE FLUSH
--- NOTE | 2021-01-17 11:09 | Progress Note ---
Assessment and Plan Impression: Large left pleural effusion likely related to renal failure Hypoxemia secondary to above End-stage renal disease on hemodialysis Hypertension. Recommendation: Thoracentesis has been ordered. Dialysis as per renal Subjective Date of service: 01/17/21 Interval history: No significant change currently in dialysis Objective Vital Signs - 12hr 01/17/21 05:43 Temperature 98.0 F Pulse Rate 83 Respiratory 18 Rate Blood Pressure 125/56 O2 Sat by Pulse 95 Oximetry Constitutional: no acute distress, alert ENT: oropharynx moist Neck: supple, no JVD Effort: normal Ascultation: Left: diminished breath sounds (Left base) Percussion: Left: dull (Left base) Tactile fremitus: Left: diminished (Left base) Cardiovascular: regular rate and rhythm, other (Vas-Cath in left subclavian vein) Gastrointestinal: normoactive bowel sounds, non-tender Integumentary: normal Extremities: no cyanosis, no edema, pink and warm Neurologic: normal mental status Psychiatric: mood appropriate CBC and BMP: 01/16/21 04:56 01/16/21 04:56 ABG, PT/INR, D-dimer: PT/INR, D-dimer PT 12.8 Sec. (12.2-14.9) 01/16/21 04:56 INR 0.97 (0.87-1.13) 01/16/21 04:56 Abnormal lab findings: Abnormal Labs 01/15/21 01/15/21 01/15/21 20:19 20:19 20:19 WBC MCH 27 L RDW 19.1 H [place] % (Auto) 8.6 H Eos % (Auto) 6.8 H Lymph # (Auto) Sodium BUN 18 H Creatinine 2.3 H Glucose 123 H POC Glucose Total Creatine Kinase 24 L Troponin T 0.069 H Albumin 3.0 L Triglycerides 176 H Cholesterol 225 H LDL Cholesterol Direct 136 H Salicylates Acetaminophen Valproic Acid 01/15/21 01/15/21 01/16/21 20:32 20:32 04:56 WBC 3.7 L MCH 27 L RDW 19.1 H [place] % (Auto) Eos % (Auto) Lymph # (Auto) 1.1 L Sodium BUN Creatinine Glucose POC Glucose Total Creatine Kinase Troponin T Albumin Triglycerides Cholesterol LDL Cholesterol Direct Salicylates < 0.3 L Acetaminophen 5.0 L Valproic Acid 41.8 L 01/16/21 01/17/21 04:56 07:36 WBC MCH RDW [place] % (Auto) Eos % (Auto) Lymph # (Auto) Sodium 136 L BUN 24 H Creatinine 2.8 H Glucose 108 H POC Glucose 69 L Total Creatine Kinase Troponin T Albumin Triglycerides Cholesterol LDL Cholesterol Direct Salicylates Acetaminophen Valproic Acid
--- NOTE | 2021-01-17 11:29 | Progress Note ---
Assessment and Plan - Patient Problems (1) Suspected 2019 novel coronavirus infection Current Visit: Yes Status: Acute Plan to address problem: We will place on isolation precautions. Will await COVID-19 testing. Consult placed to infectious disease for evaluation. (2) ESRD (end stage renal disease) Current Visit: Yes Status: Acute Plan to address problem: Consult placed to nephrology for evaluation. (3) Hypoxia Current Visit: Yes Status: Acute Plan to address problem: Possibly secondary to underlying pneumonia and or pleural effusion. Patient placed on oxygen and will keep O2 saturation greater or equal to 94%. (4) DVT prophylaxis Current Visit: No Status: Acute Plan to address problem: Patient placed on subcutaneous heparin. (5) Full code status Current Visit: Yes Status: Acute Plan to address problem: Patient is full code. Subjective Date of service: 01/17/21 Interval history: 65-year-old female with known history of hypertension, seizure disorder, end- stage renal disease on dialysis, schizophrenia and dementia resident of a assisted sent to the emergency room today because of low oxygen saturation on room air. She was said to have had a chest x-ray which was suspicious for pneumonia and later sent to the emergency room for evaluation. Patient denies any fever or chills, no chest pain, no nausea vomiting, no abdominal pain. She however indicates that she has had some pain in the right foot with discoloration of the skin on the upper part of her right foot. She denies any trauma to the foot. Work-up in the emergency room today reveals interval development of left pleural effusion Patient is being admitted for possible pneumonia and pleural effusion. She has been placed on empiric IV antibiotics and IV steroid. Objective - Constitutional Vitals: Vital Signs - 12hr 01/17/21 01/17/21 05:43 11:28 Temperature 98.0 F Pulse Rate 83 Respiratory 18 Rate Blood Pressure 125/56 O2 Sat by Pulse 95 Oximetry O2 Sat by Pulse 92 Oximetry [ Digit-Finger] - Labs CBC & Chem 7: 01/16/21 04:56 01/16/21 04:56 Labs: Abnormal lab results 01/17/21 Range/Units 07:36 POC Glucose 69 L (70-105) mg/dL HEART Score - HEART Score Troponin: Troponin T 0.069 ng/mL (0.00-0.029) H 01/15/21 20:19
--- NOTE | 2021-01-17 12:37 | Progress Note ---
Assessment and Plan Cultures: Blood culture on 01/15/2021: no growth Assessment: 65-year-old female with history of hypertension, anemia, end-stage renal disease on hemodialysis, known to our service due to MRSA bacteremia in August 2020 secondary to PermCath infection; admitted on 01/15/2021 secondary to hypoxia found at the alf: #SIRS: Present on admission with tachycardia, hypotension, likely secondary to large left-sided pleural effusion. #Large left-sided pleural effusion: Possibly secondary to volume overload / renal failure. No obvious consolidation. #Transient hypoxia: Likely due to pleural effusion. Should rule out COVID-19 infection. #ESRD: On hemodialysis PermCath #History of MRSA bacteremia in August 2020 secondary to PermCath infection. Recommendations: -Follow-up COVID-19 PCR -Continue renally adjusted levofloxacin, D3 of 5 -Follow-up thoracentesis Gloria Cardenas MD, FACP [facility] ([facility]) O: [phone] F: [phone] Subjective Date of service: 01/17/21 Interval history: No fever. On supplemental oxygen. Objective - Exam Narrative Exam: Physical Exam (reviewed in chart to minimize risk of transmission) Constitutional: deferred Head, Ears, Nose: deferred Eyes: deferred Neck: deferred Oral: deferred Cardiovascular: deferred Respiratory: deferred GI: deferred Musculoskeletal: deferred Skin: deferred Hem/Lymphatic: deferred Psych: deferred Neurological: deferred - Constitutional Vitals: Vital Signs Temp Pulse Resp BP Pulse Ox 98.0 F 83 18 125/56 92 01/17/21 05:43 01/17/21 05:43 01/17/21 05:43 01/17/21 05:43 01/17/21 11:28 Temperature -Last 24 Hours Temperature 98.0 F Temperature 98.9 F Temperature 98.8 F Temperature 97.5 F Temperature 98.3 F - Labs CBC & Chem 7: 01/16/21 04:56 01/16/21 04:56 Labs: Abnormal lab results 01/17/21 Range/Units 07:36 POC Glucose 69 L (70-105) mg/dL
--- NOTE | 2021-01-17 14:45 | Procedure Note ---
Date of procedure: 01/17/21 Pre-op diagnosis: left pleural effusion Post-op diagnosis: same Procedure: US left thoracentesis Findings: moderate left pleural effusion Anesthesia: local Surgeon: MCKAY BROWNING Estimated blood loss: none Pathology: list (120cc) Specimen disposition: to lab Condition: stable Disposition: floor
[2021-01-17] MEDS: INSULIN LISPRO 100 UNIT/ML SUB-Q SCH ×2 (15:24→18:35)
[2021-01-17] MEDS: MIDODRINE 5 MG TAB PO SCH ×2 (15:25→17:11)
--- NOTE | 2021-01-17 16:22 | Ultrasound Report ---
Ultrasound-guided thoracentesis HISTORY: Left Pleural effusion. COMPARISON: CT chest 01/15/2021 PROCEDURE: The risks (including but not limited to bleeding, infection, and pneumothorax) and benefi ts were explained to the patient and informed consent was obtained. A time out procedure was perform ed. Ultrasound was used to evaluate the left pleural effusion and locate the optimal site for needle entr y. Once the skin was marked, the procedure site was prepped and draped in the usual sterile fashion and lidocaine was used for local anesthesia. A 5 Persian thoracentesis catheter was placed. The alyse ent was monitored closely throughout the procedure, and a total of 850 mL of clear yellow fluid was a spirated. Samples were sent to the lab for further evaluation per the primary clinicians orders. The patient tolerated the procedure well with no complications. A post-procedure chest x-ray was imm ediately ordered. IMPRESSION: Successful ultrasound-guided left thoracentesis. Signer Name: Magen Silverio Jr, MD Signed: 01/17/2021 4:17 PM Workstation Name: [id number]
[2021-01-17 16:50] LABS: Total Cells Counted 100 /mm3
--- NOTE | 2021-01-17 16:54 | Discharge Summary ---
Providers - Providers Date of Admission: 01/17/21 09:50 Date of discharge: 01/17/21 Attending physician: MITCHELL SAMSON 01/15/21 21:30 Consult to Physician [CONS] Urgent Comment: Dr. Montiel spoke with Dr. Pringle @ [id number] Consulting Provider: CHRIS GARDNER Physician Instructions: Reason For Exam: esrd 01/15/21 21:33 Consult to Physician [CONS] Urgent Comment: Consulting Provider: BORIS PEDRO Physician Instructions: Reason For Exam: hypoxia, pna vs covid 01/16/21 07:50 Consult to Physician [CONS] Urgent Comment: Consulting Provider: JOSE RAMON CHU Physician Instructions: Reason For Exam: Hypoxic resp. failure, R/O Covid-19 Pneumonia Hospitalization Condition: Good Disposition: DC-01 TO HOME OR SELFCARE Core Measure Documentation - Palliative Care Palliative Care/ Comfort Measures: Not Applicable - Core Measures Any of the following diagnoses?: none Exam - Constitutional Vitals: Temp Pulse Resp BP Pulse Ox 98.2 F 77 18 118/58 92 01/17/21 13:30 01/17/21 13:30 01/17/21 13:30 01/17/21 13:30 01/17/21 11:28 Plan Follow up with: PRIMARY CARE, [Referring] - 3-5 Days
[2021-01-17 18:58] VITALS: BP 108/47
[2021-01-17 19:04] LABS: Calcium 8.9 mg/dL (8.4-10.2)
[2021-01-17 19:17] LABS: Hemoglobin 12.7 gm/dl (10.1-14.3); Mean Corpuscular HGB Conc 31 % (30-34); Mean Corpuscular Volume 88 fl (79-97); Platelet Count 225 K/mm3 (140-440); Red Blood Count 4.68 M/mm3 (3.65-5.03); Red Cell Distribution Width 19.3 % (13.2-15.2)
[2021-01-17 19:19] LABS: Hepatitis B Surface Antigen Non-Reactive (Negative); Hepatitis C Virus Antibody Non-Reactive (NonReactive)
[2021-01-17 20:12] LABS: Total Cells Counted 100
[2021-01-17 20:13] LABS: RBC Morphology Normal
--- NOTE | 2021-01-18 12:51 | Electrocardiograph Report ---
[facility] Test Date: 2021-01-15 Test Time: 20:16:10 Pat Name: LUIS M PATEL Department: Room: A351 Gender: F Pain Medicine Physician: : [id number] Requested By: LEANA SANCHEZ Order Number: [id number] Reading MD: Gamaliel Molina Measurements Intervals [place] Rate: 98 P: 28 FL: 149 QRS: -3 QRSD: 84 T: 22 QT: 286 QTc: 364 Interpretive Statements Sinus rhythm Low voltage, extremity leads No previous ECG available for comparison Electronically Signed On 01-18-2021 12:51:01 EDT by Gamaliel Molina
== END 2021-01-17 19:15 | DRG 186 ==
LOC: ED 18:37 → 3A 22:02 → OBSVTOIN 01-17 09:50
PROVIDERS: ADMIT Internal Medicine Geriatric Medicine; ATTEND Internal Medicine
PROC: 5A1D70Z Performance of Urinary Filtration, Intermittent, Less than 6 Hours Per Day (ICD-10-PCS; principal; 2021-01-17)
PROC: 0W9B3ZZ Drainage of Left Pleural Cavity, Percutaneous Approach (ICD-10-PCS; 2021-01-17)
DX: J90 Pleural effusion, not elsewhere classified (principal); N18.6 End stage renal disease; I12.0 Hypertensive chronic kidney disease with stage 5 chronic kidney disease or end stage renal disease; R65.10 Systemic inflammatory response syndrome (SIRS) of non-infectious origin without acute organ dysfunction; N25.81 Secondary hyperparathyroidism of renal origin; Z20.822 Contact with and (suspected) exposure to COVID-19; R09.02 Hypoxemia; F20.9 Schizophrenia, unspecified; F03.90 Unspecified dementia, unspecified severity, without behavioral disturbance, psychotic disturbance, mood disturbance, and anxiety; M19.90 Unspecified osteoarthritis, unspecified site; E11.22 Type 2 diabetes mellitus with diabetic chronic kidney disease; F41.9 Anxiety disorder, unspecified; D63.1 Anemia in chronic kidney disease; K21.9 Gastro-esophageal reflux disease without esophagitis; R00.0 Tachycardia, unspecified; I95.9 Hypotension, unspecified; Z90.710 Acquired absence of both cervix and uterus; Z99.2 Dependence on renal dialysis; Z88.0 Allergy status to penicillin; Z79.899 Other long term (current) drug therapy
CPT/HCPCS: 32555; 36415; 71046; 71250; 80048; 80053; 80061; 80074; 80164; 80320; 82140; 82550; 82947; 82962; 83605; 83735; 84160; 84484; 85007; 85025; 85610; 87040; 87116; 89051; 93005; G0378; G0480; J1100; J1644; J1956; J2270; J3370; J7040; U0003

== ENCOUNTER 2021-02-26 12:11 | Emergency (ER) | payer MEDICARE ==
--- NOTE | 2021-02-26 12:52 | Emergency Department Report ---
ED General Adult HPI - General Chief complaint: Medical Clearance Stated complaint: i need a manicure PUI?: No Time Seen by Provider: 02/26/21 12:44 Source: patient, family, EMS (Verbal report received from emergency medical services. EMS documentation not available at time of chart dictation ), RN notes reviewed, old records reviewed Mode of arrival: Stretcher Limitations: Other (Dementia, disorganized behavior) - History of Present Illness Initial comments: The patient was evaluated in the emergency department for symptoms described in the history of present illness. He/she was evaluated in the context of the global COVID-19 pandemic, which necessitated consideration that the patient might be at risk for infection with the virus that causes COVID-19. Institutional protocols and algorithms that pertain to the evaluation of patients at risk for COVID-19 are in a state of rapid change based on information released by regulatory bodies including the CDC and federal and state organizations. These policies and algorithms were followed during the patient's care in the emergency department. Please note that these policies, procedures and recommendations changed on a rapid basis. The patient is a pleasant 65-year-old female. Her past medical history includes hypertension, anemia, end-stage renal disease on hemodialysis, left-sided permacath. She also has a history of pleural effusion. Her primary care doctor is Dr. Luis Grider. History primarily obtained by speaking to patient's son, who is also her medical decision-maker, Mr. Randolph, first name Raymundo; [phone] The patient is brought to the hospital by emergency medical services at the request of her son for hemodialysis. He believes her last hemodialysis session was this past . The patient was due for hemodialysis today, and appar ently refused. The patient's son is of the opinion that the patient does not have decision- making capacity, with ability to make rational decisions regarding her medical care. The patient tells me that her nails are long and that she needs a manicure. She complains of chronic arthritic pains. The patient is not homicidal or suicidal. The patient is a poor historian, disorganized, and therefore, has difficulty describing the qualitative nature of her symptoms, exacerbating factors, relieving factors or aggravating factors. EMS reports normal vital signs in the field. -: This morning Quality: other Consistency: other Improves with: other Worsens with: other - Related Data Home Medications Medication Instructions Recorded Confirmed Last Taken LORazepam [Ativan] 1 mg PO BID 08/20/19 02/26/21 03/28/20 17:00 Memantine Xr [Namenda Xr] 5 mg PO DAILY 08/20/19 02/26/21 03/28/20 09:00 Midodrine [Proamatine] 10 mg PO TID 08/20/19 02/26/21 03/28/20 17:00 QUEtiapine [SEROquel] 400 mg PO BID 08/20/19 02/26/21 03/28/20 20:00 Sevelamer Carbonate [Renvela] 0.8 gram PO TIDWM 09/02/20 02/26/21 Unknown Potassium Chloride [K-Dur] 10 meq PO DAILY 02/26/21 02/26/21 Unknown risperiDONE [RisperDAL] 0.5 mg PO BID 02/26/21 02/26/21 Unknown Previous Rx's Medication Instructions Recorded Last Taken Type Acetaminophen [Acetaminophen TAB] 650 mg PO Q4H PRN tablet 06/03/19 09/02/20 Rx Pantoprazole [Protonix TAB] 40 mg PO BID tablet 10/12/19 03/28/20 17:00 Rx HYDROcodone/APAP 5-325 [Lithia 1 each PO Q6H PRN #24 tablet 03/29/20 Unknown Rx 5-325 mg TAB] Divalproex Dr [Sarina Serrano] 750 mg PO BID tablet 09/13/20 Unknown Rx Allergies Allergy/AdvReac Type Severity Reaction Status Date / Time Penicillins Allergy Rash Verified 02/26/21 12:38 corn AdvReac Unknown Verified 02/26/21 12:38 ED Review of Systems ROS: Stated complaint: FAMILY REQUESTED/REFUSED DIALYSIS Other details as noted in HPI Comment: Unobtainable due to pts medical conditions (Patient is a poor histor mandeep, and disorganized) Constitutional: denies: fever Eyes: denies: eye discharge Respiratory: denies: cough, shortness of breath Cardiovascular: denies: chest pain Gastrointestinal: denies: abdominal pain Musculoskeletal: arthralgia, myalgia Neurological: weakness ED Past Medical Hx - Past Medical History Hx Hypertension: Yes Hx Heart Attack/AMI: No Hx GERD: Yes Hx Renal Disease: Yes (ESRD) Hx Arthritis: Yes Hx Seizures: Yes Hx Psychiatric Treatment: Yes (bipolar,schizophrenia,severe anxiety) Hx Dementia: Yes Additional medical history: HD - Surgical History Additional Surgical History: hysterectomy, right chest wall permacath - Social History Smoking Status: Unknown if ever smoked - Medications Home Medications: Home Medications Medication Instructions Recorded Confirmed Last Taken Type Acetaminophen [Acetaminophen TAB] 650 mg PO Q4H PRN tablet 06/03/19 02/26/21 09/02/20 Rx LORazepam [Ativan] 1 mg PO BID 08/20/19 02/26/21 03/28/20 17:00 History Memantine Xr [Namenda Xr] 5 mg PO DAILY 08/20/19 02/26/21 03/28/20 09:00 History Midodrine [Proamatine] 10 mg PO TID 08/20/19 02/26/21 03/28/20 17:00 History QUEtiapine [SEROquel] 400 mg PO BID 08/20/19 02/26/21 03/28/20 20:00 History Pantoprazole [Protonix TAB] 40 mg PO BID tablet 10/12/19 02/26/21 03/28/20 17:00 Rx HYDROcodone/APAP 5-325 [Lithia 1 each PO Q6H PRN #24 tablet 03/29/20 02/26/21 Unknown Rx 5-325 mg TAB] Sevelamer Carbonate [Renvela] 0.8 gram PO TIDWM 09/02/20 02/26/[address] [Depakote Dr] 750 mg PO BID tablet 09/13/20 02/26/21 Unknown Rx Potassium Chloride [K-Dur] 10 meq PO DAILY 02/26/21 02/26/21 Unknown History risperiDONE [RisperDAL] 0.5 mg PO BID 02/26/21 02/26/21 Unknown History ED Physical Exam - General Limitations: Other (Disorganized behavior. Dementia.) General appearance: in no apparent distress - Head Head exam: Present: atraumatic, normocephalic - Eye Eye exam: Present: normal appearance, EOMI. Absent: nystagmus - ENT ENT exam: Present: normal exam, normal orophraynx, mucous membranes moist, normal external ear exam - Neck Neck exam: Present: normal inspection, full ROM. Absent: tenderness, meningismus - Respiratory Respiratory exam: Present: normal lung sounds bilaterally. Absent: respiratory distress, wheezes, rales, rhonchi, stridor, decreased breath sounds - Cardiovascular Cardiovascular Exam: Present: regular rate, normal rhythm, normal heart sounds. Absent: bradycardia, tachycardia, irregular rhythm, systolic murmur, diastolic murmur, rubs, gallop - GI/Abdominal GI/Abdominal exam: Present: soft. Absent: distended, tenderness, guarding, rebound, rigid, pulsatile mass - Extremities Exam Extremities exam: Present: normal inspection, full ROM, other (2+ pulses noted in the bilateral upper and lower extremities. There is no long bony tenderness. The bilateral knees are minimally tender. Bilateral knee joint effusions noted. Hyperpigmentation noted to the dorsal aspect of the right foot). Absent: calf tenderness - Back Exam Back exam: Present: normal inspection. Absent: tenderness, CVA tenderness (R), CVA tenderness (L), paraspinal tenderness, vertebral tenderness - Neurological Exam Neurological exam: Present: alert (The patient is awake to name. The patient follows commands.), other (No facial droop. Tongue midline. Extraocular movements intact bilaterally. Facial sensation intact to light touch in V1, V2, V3 distribution bilaterally. 5 and a 5 strength in 4 extremities. Sensation intact to light touch in 4 extremities.) - Psychiatric Psychiatric exam: Present: anxious - Skin Skin exam: Present: warm, dry, intact, normal color. Absent: rash ED Course Vital Signs 02/26/21 02/26/21 12:51 13:52 Temperature 98.6 F Pulse Rate 82 78 Respiratory 16 14 Rate Blood Pressure 131/71 120/64 [Right] O2 Sat by Pulse 95 95 Oximetry - Reevaluation(s) Reevaluation #1: 02/26/21 13:04 Differential diagnosis, included but not limited to: Disorganized behavior, de mentia, azotemia, uremia, metabolic acidosis, hyperkalemia, pneumonia, Assessment and plan: 65-year-old female, with dementia, poor decision-making capacity, presenting to the ER essentially for medical clearance, essentially at the request of her son, for hemodialysis. The patient has been apparently refusing hemodialysis, and was thus referred to the emergency room. This patient is awake, protecting airway, moving 4 extremities. However, she does not have a lucid thought process, and does not exhibit decision-making capacity. I have discussed this with the patient's son, who is also his decision-maker. He has provided verbal consent for acquisition of necessary laboratory studies, and physical/chemical restraint if necessary for this patient. EKG, chest x-ray have been requested, in addition to laboratory studies. shelter has indicated that the patient does not make urine 02/26/21 15:04 Reassessed. Laboratory studies do not indicate the need for emergent hemodialysis at this time. Patient resting comfortably in stretcher, in no acute respiratory distress. Chest x-ray shows very small pleural effusion, but much improvement compared to prior. The patient is resting comfortably at this time, and she is not in any acute distress. The patient does not appear to have an emergent medical condition at this time which would necessitate admission and hospitalization. I called up her son at the listed phone number, no answer, left a voicemail for call back. We have also called up [facility], to inform them. Patient should follow-up in 24 to 48 hours for repeat basic metabolic panel. Defer to outpatient primary care doctor, primary care team to manage dementia, and behavioral issues. The patient has been pleasant, calm and cooperative while here in the emergency room, not violent, agitated or combative, and has not required physical or chemical sedation. 02/26/21 15:05 ED Medical Decision Making - Lab Data Result diagrams: 02/26/21 13:27 02/26/21 13:27 Vital Signs 02/26/21 12:51 Temperature 98.6 F Pulse Rate 82 Respiratory 16 Rate Blood Pressure 131/71 [Right] O2 Sat by Pulse 95 Oximetry Vital Signs 02/26/21 02/26/21 12:51 13:52 Temperature 98.6 F Pulse Rate 82 78 Respiratory 16 14 Rate Blood Pressure 131/71 120/64 [Right] O2 Sat by Pulse 95 95 Oximetry Lab Results 02/26/21 02/26/21 02/26/21 Range/Units 13:27 13:27 13:27 WBC 4.5 (4.5-11.0) K/mm3 RBC 4.62 (3.65-5.03) M/mm3 Hgb 11.9 (10.1-14.3) gm/dl Hct 38.6 (30.3-42.9) % MCV 84 (79-97) fl MCH 26 L (28-32) pg MCHC 31 (30-34) % RDW 21.7 H (13.2-15.2) % Plt Count 261 (140-440) K/mm3 Lymph % (Auto) 24.5 (13.4-35.0) % [place] % (Auto) 13.9 H (0.0-7.3) % Eos % (Auto) 8.0 H (0.0-4.3) % Baso % (Auto) 1.7 (0.0-1.8) % Lymph # (Auto) 1.1 L (1.2-5.4) K/mm3 [place] # (Auto) 0.6 (0.0-0.8) K/mm3 Eos # (Auto) 0.4 (0.0-0.4) K/mm3 Baso # (Auto) 0.1 (0.0-0.1) K/mm3 Seg Neutrophils % 51.9 (40.0-70.0) % Seg Neutrophils # 2.3 (1.8-7.7) K/mm3 PT (12.2-14.9) Sec. INR (0.87-1.13) Sodium 141 (137-145) mmol/L Potassium 4.8 (3.6-5.0) mmol/L Chloride 106.6 (98-107) mmol/L Carbon Dioxide 24 (22-30) mmol/L Anion Gap 15 mmol/L BUN 20 H (7-17) mg/dL Creatinine 3.7 H (0.6-1.2) mg/dL Estimated GFR 15 ml/min BUN/Creatinine Ratio 5 % Glucose 79 (65-100) mg/dL Calcium 9.4 (8.4-10.2) mg/dL Magnesium 2.30 (1.7-2.3) mg/dL Total Creatine Kinase 16 L (30-135) units/L NT-Pro-B Natriuret Pep (0-900) pg/mL Salicylates < 0.3 L (2.8-20.0) mg/dL Acetaminophen (10.0-30.0) ug/mL Plasma/Serum Alcohol (0-0.07) % 02/26/21 02/26/21 02/26/21 Range/Units 13:27 13:27 13:27 WBC (4.5-11.0) K/mm3 RBC (3.65-5.03) M/mm3 Hgb (10.1-14.3) gm/dl Hct (30.3-42.9) % MCV (79-97) fl MCH (28-32) pg MCHC (30-34) % RDW (13.2-15.2) % Plt Count (140-440) K/mm3 Lymph % (Auto) (13.4-35.0) % [place] % (Auto) (0.0-7.3) % Eos % (Auto) (0.0-4.3) % Baso % (Auto) (0.0-1.8) % Lymph # (Auto) (1.2-5.4) K/mm3 [place] # (Auto) (0.0-0.8) K/mm3 Eos # (Auto) (0.0-0.4) K/mm3 Baso # (Auto) (0.0-0.1) K/mm3 Seg Neutrophils % (40.0-70.0) % Seg Neutrophils # (1.8-7.7) K/mm3 PT 13.1 (12.2-14.9) Sec. INR 0.93 (0.87-1.13) Sodium (137-145) mmol/L Potassium (3.6-5.0) mmol/L Chloride (98-107) mmol/L Carbon Dioxide (22-30) mmol/L Anion Gap mmol/L BUN (7-17) mg/dL Creatinine (0.6-1.2) mg/dL Estimated GFR ml/min BUN/Creatinine Ratio % Glucose (65-100) mg/dL Calcium (8.4-10.2) mg/dL Magnesium (1.7-2.3) mg/dL Total Creatine Kinase (30-135) units/L NT-Pro-B Natriuret Pep (0-900) pg/mL Salicylates (2.8-20.0) mg/dL Acetaminophen 5.0 L (10.0-30.0) ug/mL Plasma/Serum Alcohol < 0.01 (0-0.07) % 02/26/21 Range/Units 13:27 WBC (4.5-11.0) K/mm3 RBC (3.65-5.03) M/mm3 Hgb (10.1-14.3) gm/dl Hct (30.3-42.9) % MCV (79-97) fl MCH (28-32) pg MCHC (30-34) % RDW (13.2-15.2) % Plt Count (140-440) K/mm3 Lymph % (Auto) (13.4-35.0) % [place] % (Auto) (0.0-7.3) % Eos % (Auto) (0.0-4.3) % Baso % (Auto) (0.0-1.8) % Lymph # (Auto) (1.2-5.4) K/mm3 [place] # (Auto) (0.0-0.8) K/mm3 Eos # (Auto) (0.0-0.4) K/mm3 Baso # (Auto) (0.0-0.1) K/mm3 Seg Neutrophils % (40.0-70.0) % Seg Neutrophils # (1.8-7.7) K/mm3 PT (12.2-14.9) Sec. INR (0.87-1.13) Sodium (137-145) mmol/L Potassium (3.6-5.0) mmol/L Chloride (98-107) mmol/L Carbon Dioxide (22-30) mmol/L Anion Gap mmol/L BUN (7-17) mg/dL Creatinine (0.6-1.2) mg/dL Estimated GFR ml/min BUN/Creatinine Ratio % Glucose (65-100) mg/dL Calcium (8.4-10.2) mg/dL Magnesium (1.7-2.3) mg/dL Total Creatine Kinase (30-135) units/L NT-Pro-B Natriuret Pep 6233 H (0-900) pg/mL Salicylates (2.8-20.0) mg/dL Acetaminophen (10.0-30.0) ug/mL Plasma/Serum Alcohol (0-0.07) % - EKG Data -: EKG Interpreted by Ms EKG shows normal: sinus rhythm Rate: normal - EKG Data 02/26/21 13:49 EKG interpreted at 13: 47 Sinus rhythm, appropriate P wave axis, rate 80 bpm, left axis deviation, low voltage, motion artifact, intervals within normal limits. This is an abnormal EKG. This is not a STEMI. - Radiology Data Radiology results: pending, report reviewed, image reviewed [facility] [address] [place] [address] XRay Report Signed Patient: LUIS M RANDOLPH MR#: [id number] : 1 Acct:[id number] Age/Sex: 65 / F ADM Date: 02/26/21 Loc: ED Attending Dr: Ordering Physician: LEANA SANCHEZ MD Date of Service: 02/26/21 Procedure(s): XR chest 1V ap Accession Number(s): [id number] cc: LEANA SANCHEZ MD Fluoro Time In Minutes: CHEST 1 VIEW 02/26/2021 1:11 PM INDICATION / CLINICAL INFORMATION: ESRD, history of pleural effusion. COMPARISON: 01/15/2021 FINDINGS: SUPPORT DEVICES: Stable, satisfactory device positioning. HEART / MEDIASTINUM: Stable. LUNGS / PLEURA: Small left pleural effusion with associated volume loss. Findings are improved when compared to 01/15/2021. Right lung is unchanged in appearance. No pneumothorax. ADDITIONAL FINDINGS: No significant additional findings. IMPRESSION: 1. Mild left pleural-parenchymal disease, improved when compared to 01/15/2021. Signer Name: Chaparrita Barkley MD Signed: 02/26/2021 1:47 PM Workstation Name: [id number] Transcribed By: Dictated By: CHAPARRITA BARKLEY III Electronically Authenticated By: CHAPARRITA BARKLEY III Signed Date/Time: 02/26/21 1347 DD/ 1346 Critical care attestation.: If time is entered above; I have spent that time in minutes in the direct care of this critically ill patient, excluding procedure time. ED Disposition Clinical Impression: ESRD (end stage renal disease) Disposition: DC/TX-70 ANOTHER TYPE HLTHCARE Is pt being admited?: No Does the pt Need Aspirin: No Condition: Good Instructions: Dialysis Additional Instructions: Please continue current outpatient medications. Please follow-up in 24 hours for repeat evaluation with your primary care doctor, and for repeat laboratory studies to assess basic metabolic panel. Patient was not found to have laboratory studies or physical exam findings that would require admission to the hospital for emergent hemodialysis. We do recommend that your primary care doctor or inspector production plastic parts contact the medical records department, to obtain copies of laboratory studies and radiology studies, to follow-up on nonemergent incidental abnormal findings. Please return to the emergency room right away with new pain, worsened pain, migration of pain, projectile vomiting, change in mental status, confusion, inability to tolerate liquid feeds, new, worsened or different symptoms not present on the initial emergency room evaluation. Referrals: ANDERSON BRYANT MD [Staff Physician] - 3-5 Days Time of Disposition: 15:07 (Discharge back to [facility])
--- NOTE | 2021-02-26 13:52 | XRay Report ---
CHEST 1 VIEW 02/26/2021 1:11 PM INDICATION / CLINICAL INFORMATION: ESRD, history of pleural effusion. COMPARISON: 01/15/2021 FINDINGS: SUPPORT DEVICES: Stable, satisfactory device positioning. HEART / MEDIASTINUM: Stable. LUNGS / PLEURA: Small left pleural effusion with associated volume loss. Findings are improved when c ompared to 01/15/2021. Right lung is unchanged in appearance. No pneumothorax. ADDITIONAL FINDINGS: No significant additional findings. IMPRESSION: 1. Mild left pleural-parenchymal disease, improved when compared to 01/15/2021. Signer Name: Forrest Barkley MD Signed: 02/26/2021 1:47 PM Workstation Name: [id number]
[2021-02-26 14:35] LABS: INR 0.93 (0.87-1.13)
[2021-02-26 14:37] LABS: Basophils # (Auto) 0.1 K/mm3 (0.0-0.1); Basophils % (Auto) 1.7 % (0.0-1.8); Eosinophils # (Auto) 0.4 K/mm3 (0.0-0.4); Hematocrit 38.6 % (30.3-42.9); Hemoglobin 11.9 gm/dl (10.1-14.3); Lymphocytes # (Auto) 1.1 K/mm3 (1.2-5.4); Lymphocytes % (Auto) 24.5 % (13.4-35.0); Mean Corpuscular HGB Conc 31 % (30-34); Mean Corpuscular Volume 84 fl (79-97); Monocytes # (Auto) 0.6 K/mm3 (0.0-0.8); Monocytes % (Auto) 13.9 % (0.0-7.3); Platelet Count 261 K/mm3 (140-440); Red Blood Count 4.62 M/mm3 (3.65-5.03); Red Cell Distribution Width 21.7 % (13.2-15.2)
[2021-02-26 14:46] LABS: Calcium 9.4 mg/dL (8.4-10.2)
[2021-02-26] MEDS ORDERED: ACETAMINOPHEN 325 MG TAB PO PRN (15:12)
[2021-02-26 16:57] VITALS: BP 120/59
[2021-02-26] MEDS ORDERED: SEVELAMER CARBONATE 800 MG TAB PO SCH (17:00)
[2021-02-26] MEDS ORDERED: MIDODRINE 5 MG TAB PO SCH (20:00)
[2021-02-26] MEDS ORDERED: DIVALPROEX DR 250 MG TAB PO SCH (22:00)
[2021-02-26] MEDS ORDERED: LORazepam 1 MG TAB PO SCH (22:00)
[2021-02-26] MEDS ORDERED: PANTOPRAZOLE 40 MG TAB PO SCH (22:00)
[2021-02-27] MEDS ORDERED: MEMANTINE 5 MG TAB PO SCH (10:00)
[2021-02-27] MEDS ORDERED: MEMANTINE 7 MG PO SCH (10:00)
--- NOTE | 2021-03-03 12:52 | Electrocardiograph Report ---
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
== END 2021-02-26 18:21 | disposition other institution (70) ==
LOC: ED 12:11
DX: I12.0 Hypertensive chronic kidney disease with stage 5 chronic kidney disease or end stage renal disease (principal); N18.6 End stage renal disease; K21.9 Gastro-esophageal reflux disease without esophagitis; M19.91 Primary osteoarthritis, unspecified site; R56.9 Unspecified convulsions; Z99.2 Dependence on renal dialysis; Z90.710 Acquired absence of both cervix and uterus; Z98.890 Other specified postprocedural states; Z79.899 Other long term (current) drug therapy; Z88.0 Allergy status to penicillin; Z91.018 Allergy to other foods
CPT/HCPCS: 36415; 71045; 80048; 80320; 82550; 83735; 83880; 85025; 85610; 93005; G0480

== ENCOUNTER 2021-03-17 19:42 | Inpatient (IN) | payer MEDICARE ==
--- NOTE | 2021-03-17 23:09 | Emergency Department Report ---
ED General Adult HPI - General Chief complaint: Medical Clearance Stated complaint: MISSED DIALYSIS PUI?: No Time Seen by Provider: 03/17/21 22:40 Source: patient, EMS Mode of arrival: Stretcher Limitations: Physical Limitation - History of Present Illness Initial comments: Patient is a 65-year-old female who presents emergency room with complaints of missed dialysis. Patient presents emergency room because she missed dialysis 2 times. Patient presents from [facility]. Patient states that her belt weaver is Dr. Love. Patient states Dr. Love wanted her to come to specifically this hospital. Patient denies pain. Patient denies chest pain shortness of breath. Patient denies fever and chills. Patient denies recent travel. Patient denies recent international travel. Patient denies exposure to the novel coronavirus. Patient denies sick contacts. Patient denies fever and chills. Patient denies cough. Patient denies diarrhea. Patient denies coming in contact with anybody with symptoms of the novel coronavirus. Patient is oriented x2. Patient is oriented to self and place. Patient is d isoriented to time. Patient answers questions appropriately. -: Sudden Severity scale (0 -10): 0 - Related Data Home Medications Medication Instructions Recorded Confirmed Last Taken LORazepam [Ativan] 1 mg PO BID 08/20/19 02/26/21 03/28/20 17:00 Memantine Xr [Namenda Xr] 5 mg PO DAILY 08/20/19 02/26/21 03/28/20 09:00 Midodrine [Proamatine] 10 mg PO TID 08/20/19 02/26/21 03/28/20 17:00 QUEtiapine [SEROquel] 400 mg PO BID 08/20/19 02/26/21 03/28/20 20:00 Sevelamer Carbonate [Renvela] 0.8 gram PO TIDWM 09/02/20 02/26/21 Unknown Potassium Chloride [K-Dur] 10 meq PO DAILY 02/26/21 02/26/21 Unknown risperiDONE [RisperDAL] 0.5 mg PO BID 02/26/21 02/26/21 Unknown Previous Rx's Medication Instructions Recorded Last Taken Type Acetaminophen [Acetaminophen TAB] 650 mg PO Q4H PRN tablet 06/03/19 09/02/20 Rx Pantoprazole [Protonix TAB] 40 mg PO BID tablet 10/12/19 03/28/20 17:00 Rx HYDROcodone/APAP 5-325 [[place] 1 each PO Q6H PRN #24 tablet 03/29/20 Unknown Rx 5-325 mg TAB] Divalproex [Sarina Serrano] 750 mg PO BID tablet 09/13/20 Unknown Rx Allergies Allergy/AdvReac Type Severity Reaction Status Date / Time Penicillins Allergy Rash Verified 02/26/21 12:38 corn AdvReac Unknown Verified 02/26/21 12:38 ED Review of Systems ROS: Stated complaint: MISSED DIALYSIS Other details as noted in HPI Constitutional: denies: chills, fever Eyes: denies: eye pain, eye discharge, vision change ENT: denies: ear pain, throat pain Respiratory: denies: cough, shortness of breath, wheezing Cardiovascular: denies: chest pain, palpitations Endocrine: no symptoms reported Gastrointestinal: denies: abdominal pain, nausea, diarrhea Genitourinary: denies: urgency, dysuria, discharge Musculoskeletal: denies: back pain, joint swelling, arthralgia Skin: denies: rash, lesions Neurological: denies: headache, weakness, paresthesias Psychiatric: denies: anxiety, depression Hematological/Lymphatic: denies: easy bleeding, easy bruising ED Past Medical Hx - Past Medical History Previous Medical History?: Yes Hx Hypertension: Yes Hx Heart Attack/AMI: No Hx GERD: Yes Hx Renal Disease: Yes (ESRD) Hx Arthritis: Yes Hx Seizures: Yes Hx Psychiatric Treatment: Yes (bipolar,schizophrenia,severe anxiety) Hx Dementia: Yes Additional medical history: HD - Surgical History Past Surgical History?: Yes Additional Surgical History: hysterectomy, right chest wall permacath - Family History Family history: no significant - Social History Smoking Status: Unknown if ever smoked Substance Use Type: None - Medications Home Medications: Home Medications Medication Instructions Recorded Confirmed Last Taken Type Acetaminophen [Acetaminophen TAB] 650 mg PO Q4H PRN tablet 06/03/19 02/26/21 09/02/20 Rx LORazepam [Ativan] 1 mg PO BID 08/20/19 02/26/21 03/28/20 17:00 History Memantine Xr [Namenda Xr] 5 mg PO DAILY 08/20/19 02/26/21 03/28/20 09:00 History Midodrine [Proamatine] 10 mg PO TID 08/20/19 02/26/21 03/28/20 17:00 History QUEtiapine [SEROquel] 400 mg PO BID 08/20/19 02/26/21 03/28/20 20:00 History Pantoprazole [Protonix TAB] 40 mg PO BID tablet 10/12/19 02/26/21 03/28/20 17:00 Rx HYDROcodone/APAP 5-325 [[place] 1 each PO Q6H PRN #24 tablet 03/29/20 02/26/21 Unknown Rx 5-325 mg TAB] Sevelamer Carbonate [Renvela] 0.8 gram PO TIDWM 09/02/20 02/26/[address] [Sarina Serrano] 750 mg PO BID tablet 09/13/20 02/26/21 Unknown Rx Potassium Chloride [K-Dur] 10 meq PO DAILY 02/26/21 02/26/21 Unknown History risperiDONE [RisperDAL] 0.5 mg PO BID 02/26/21 02/26/21 Unknown History ED Physical Exam - General Limitations: Physical Limitation General appearance: alert, in no apparent distress - Head Head exam: Present: atraumatic, normocephalic - Eye Eye exam: Present: normal appearance - ENT ENT exam: Present: mucous membranes moist - Neck Neck exam: Present: normal inspection - Respiratory Respiratory exam: Present: normal lung sounds bilaterally, other (Patient has a left chest Vas-Cath.). Absent: respiratory distress - Cardiovascular Cardiovascular Exam: Present: regular rate, normal rhythm. Absent: systolic murmur, diastolic murmur, rubs, gallop - GI/Abdominal GI/Abdominal exam: Present: soft, normal bowel sounds - Extremities Exam Extremities exam: Present: normal inspection - Back Exam Back exam: Present: normal inspection - Neurological Exam Neurological exam: Present: alert, altered (Alert and oriented x2.) - Psychiatric Psychiatric exam: Present: normal affect, normal mood - Skin Skin exam: Present: warm, dry, intact, normal color. Absent: rash ED Course Vital Signs 03/17/21 20:15 Temperature 98.8 F Pulse Rate 102 H Respiratory 19 Rate Blood Pressure 139/81 [Left] O2 Sat by Pulse 96 Oximetry - Reevaluation(s) Reevaluation #1: I discussed all results with patient. I discussed plan of care with patient. Patient agrees with plan of care and admission. Patient to be admitted to the hospitalist service. 03/18/21 00:13 - Consultations Consultation #1: I discussed the patient case with the on-call belt weaver for the patient's primary belt weaver, Dr. Louis. Dr. Louis recommends admission to observation and the patient will be dialyzed in the morning. 03/18/21 00:12 Consultation #2: Hospitalist consulted for admission. Hospitalist to admit patient. 03/18/21 00:13 ED Medical Decision Making - Lab Data Result diagrams: 03/17/21 23:12 03/17/21 23:12 - Medical Decision Making Patient is a 65-year-old female who presents emergency room for missed dialysis. [facility] was [facility] to have in hospital service she missed too many outpatient sessions. Patient belt weaver Dr. Love. I discussed the impression on-call with Dr. Love's team and they recommended admission to the hospital service and patient will be dialyzed in the morning. Patient had labs done which were consistent with end-stage renal disease. Patient had a normal potassium. Patient admitted to the hospital service for further evaluation treatment. Critical care time documented due to the multiple reassessments, prolonged time at the bedside, interpretation of diagnostics and labs and discussion with consultants.. - Differential Diagnosis Missed dialysis, needing dialysis, end-stage renal disease Critical Care Time: Yes Critical care time in (mins) excluding proc time.: 35 Critical care attestation.: If time is entered above; I have spent that time in minutes in the direct care of this critically ill patient, excluding procedure time. Critical Care Time: 35 minutes ED Disposition Clinical Impression: Missed dialysis, ESRD (end stage renal disease) Disposition: OP ADMIT IP TO THIS HOSP Is pt being admited?: Yes Does the pt Need Aspirin: No Condition: Critical Time of Disposition: 00:20
[2021-03-17 23:52] LABS: Hematocrit 38.7 % (30.3-42.9); Hemoglobin 11.9 gm/dl (10.1-14.3); Mean Corpuscular HGB Conc 31 % (30-34); Mean Corpuscular Volume 86 fl (79-97); Platelet Count 171 K/mm3 (140-440); Red Blood Count 4.53 M/mm3 (3.65-5.03)
[2021-03-17 23:55] LABS: Calcium 8.9 mg/dL (8.4-10.2)
[2021-03-18 01:04] LABS: Total Cells Counted 100
[2021-03-18 01:05] LABS: Anisocytosis 1+; Hypochromasia 1+; Ovalocytes Few; Poikilocytosis 1+; Tear Drop Cells Few
[2021-03-18 01:06] LABS: Platelet Estimate Consistent w Auto
[2021-03-18] MEDS ORDERED: ALBUTEROL 2.5 MG/3 ML NEBU IH PRN (01:27)
[2021-03-18] MEDS ORDERED: ACETAMINOPHEN 325 MG TAB PO PRN (01:27)
[2021-03-18] MEDS ORDERED: ONDANSETRON 4 MG/2 ML INJ IV PRN (01:27)
[2021-03-18] MEDS ORDERED: HYDROcodone/ACETAMINOPHEN 5-325 MG TAB PO PRN (01:29)
[2021-03-18] MEDS ORDERED: hydrALAZINE 20 MG/1 ML INJ IV PRN (01:31)
--- NOTE | 2021-03-18 01:37 | History and Physical Report ---
History of Present Illness Date of examination: 03/18/21 Date of admission: 03/18/21 Chief complaint: Missed hemodialysis History of present illness: 65-year-old female with history of end-stage renal disease on hemodialysis was brought to the emergency room because of missed dialysis 2 times. Patient presents from [facility]. Patient states that her drop wire hanger is Dr. Love. Patient states Dr. Love wanted her to come to specifically this hospital. Patient denies pain. Patient denies chest pain shortness of breath. Patient denies fever and chills. In the emergency room patient's BUN is 44 and creatinine 5.0 Past History Past Medical History: arthritis, ESRD, GERD, hypertension, seizures, other (Dementia schizophrenia) Medications and Allergies Allergies Allergy/AdvReac Type Severity Reaction Status Date / Time Penicillins Allergy Rash Verified 02/26/21 12:38 corn AdvReac Unknown Verified 02/26/21 12:38 Home Medications Medication Instructions Recorded Confirmed Last Taken Type Acetaminophen [Acetaminophen TAB] 650 mg PO Q4H PRN tablet 06/03/19 02/26/21 09/02/20 Rx LORazepam [Ativan] 1 mg PO BID 08/20/19 02/26/21 03/28/20 17:00 History Memantine Xr [Namenda Xr] 5 mg PO DAILY 08/20/19 02/26/21 03/28/20 09:00 History Midodrine [Proamatine] 10 mg PO TID 08/20/19 02/26/21 03/28/20 17:00 History QUEtiapine [SEROquel] 400 mg PO BID 08/20/19 02/26/21 03/28/20 20:00 History Pantoprazole [Protonix TAB] 40 mg PO BID tablet 10/12/19 02/26/21 03/28/20 17:00 Rx HYDROcodone/APAP 5-325 [[place] 1 each PO Q6H PRN #24 tablet 03/29/20 02/26/21 Unknown Rx 5-325 mg TAB] Sevelamer Carbonate [Renvela] 0.8 gram PO TIDWM 09/02/20 02/26/[address] [Depakote Dr] 750 mg PO BID tablet 09/13/20 02/26/21 Unknown Rx Potassium Chloride [K-Dur] 10 meq PO DAILY 02/26/21 02/26/21 Unknown History risperiDONE [RisperDAL] 0.5 mg PO BID 02/26/21 02/26/21 Unknown History Active Meds: Active Medications Acetaminophen (Acetaminophen 325 Mg Tab) 650 mg PO Q4H PRN PRN Reason: Pain MILD(1-3)/Fever >100.5/DRAKE Albuterol (Albuterol 2.5 Mg/3 Ml Nebu) 2.5 mg IH Q4HRT PRN PRN Reason: Shortness Of Breath Famotidine (Famotidine 20 Mg Tab) 20 mg PO BID [facility] Ondansetron HCl (Ondansetron 4 Mg/2 Ml Inj) 4 mg IV Q8H PRN PRN Reason: Nausea And Vomiting Sodium Chloride (Sodium Chloride 0.9% 10 Ml Flush Syringe) 10 ml IV BID [facility] Sodium Chloride (Sodium Chloride 0.9% 10 Ml Flush Syringe) 10 ml IV PRN PRN PRN Reason: LINE FLUSH Exam - Constitutional Vitals: Temp Pulse Resp BP Pulse Ox 98.8 F 102 H 18 139/81 96 03/17/21 20:15 03/17/21 20:15 03/18/21 00:58 03/17/21 20:15 03/17/21 20:15 General appearance: Present: no acute distress, well-nourished - EENT Eyes: Present: PERRL ENT: hearing intact, clear oral mucosa - Neck Neck: Present: supple, normal ROM - Respiratory Respiratory effort: normal Respiratory: bilateral: CTA - Cardiovascular Heart Sounds: Present: S1 & S2. Absent: rub, click - Extremities Extremities: pulses symmetrical, No edema Peripheral Pulses: within normal limits - Abdominal General gastrointestinal: Present: soft, non-tender, non-distended, normal bowel sounds Female genitourinary: Present: normal - Integumentary Integumentary: Present: clear, warm, dry - Musculoskeletal Musculoskeletal: gait normal, strength equal bilaterally - Psychiatric Psychiatric: appropriate mood/affect, intact judgment & insight - Neurologic Neurologic: CNII-XII intact, moves all extremities Results - Labs CBC & Chem 7: 03/17/21 23:12 03/17/21 23:12 Labs: Laboratory Last Values WBC 3.9 K/mm3 (4.5-11.0) L 03/17/21 23:12 RBC 4.53 M/mm3 (3.65-5.03) 03/17/21 23:12 Hgb 11.9 gm/dl (10.1-14.3) 03/17/21 23:12 Hct 38.7 % (30.3-42.9) 03/17/21 23:12 MCV 86 fl (79-97) 03/17/21 23:12 MCH 26 pg (28-32) L 03/17/21 23:12 MCHC 31 % (30-34) 03/17/21 23:12 RDW 22.0 % (13.2-15.2) H 03/17/21 23:12 Plt Count 171 K/mm3 (140-440) 03/17/21 23:12 Add Manual Diff Complete 03/17/21 23:12 Total Counted 100 03/17/21 23:12 Seg Neuts % (Manual) 32.0 % (40.0-70.0) L 03/17/21 23:12 Lymphocytes % (Manual) 49.0 % (13.4-35.0) H 03/17/21 23:12 Monocytes % (Manual) 5.0 % (0.0-7.3) 03/17/21 23:12 Eosinophils % (Manual) 12.0 % (0.0-4.3) H 03/17/21 23:12 Basophils % (Manual) 2.0 % (0.0-1.8) H 03/17/21 23:12 Nucleated RBC % Not Reportable 03/17/21 23:12 Seg Neutrophils # Man 1.2 K/mm3 (1.8-7.7) L 03/17/21 23:12 Band Neutrophils # 0.0 K/mm3 03/17/21 23:12 Lymphocytes # (Manual) 1.9 K/mm3 (1.2-5.4) 03/17/21 23:12 Abs React Lymphs (Man) 0.0 K/mm3 03/17/21 23:12 Monocytes # (Manual) 0.2 K/mm3 (0.0-0.8) 03/17/21 23:12 Eosinophils # (Manual) 0.5 K/mm3 (0.0-0.4) H 03/17/21 23:12 Basophils # (Manual) 0.1 K/mm3 (0.0-0.1) 03/17/21 23:12 Metamyelocytes # 0.0 K/mm3 03/17/21 23:12 Myelocytes # 0.0 K/mm3 03/17/21 23:12 Promyelocytes # 0.0 K/mm3 03/17/21 23:12 Blast Cells # 0.0 K/mm3 03/17/21 23:12 WBC Morphology Not Reportable 03/17/21 23:12 Hypersegmented Neuts Not Reportable 03/17/21 23:12 Hyposegmented Neuts Not Reportable 03/17/21 23:12 Hypogranular Neuts Not Reportable 03/17/21 23:12 Smudge Cells Not Reportable 03/17/21 23:12 Toxic Granulation Not Reportable 03/17/21 23:12 Toxic Vacuolation Not Reportable 03/17/21 23:12 Dohle Bodies Not Reportable 03/17/21 23:12 Pelger-Huet Anomaly Not Reportable 03/17/21 23:12 Ubaldo Rods Not Reportable 03/17/21 23:12 Platelet Estimate Consistent w auto 03/17/21 23:12 Clumped Platelets Not Reportable 03/17/21 23:12 Plt Clumps, EDTA Not Reportable 03/17/21 23:12 Large Platelets Not Reportable 03/17/21 23:12 Giant Platelets Not Reportable 03/17/21 23:12 Platelet Satelliting Not Reportable 03/17/21 23:12 Plt Morphology Comment Not Reportable 03/17/21 23:12 RBC Morphology Not Reportable 03/17/21 23:12 Dimorphic RBCs Not Reportable 03/17/21 23:12 Polychromasia Not Reportable 03/17/21 23:12 Hypochromasia 1+ 03/17/21 23:12 Poikilocytosis 1+ 03/17/21 23:12 Anisocytosis 1+ 03/17/21 23:12 Microcytosis Not Reportable 03/17/21 23:12 Macrocytosis Not Reportable 03/17/21 23:12 Spherocytes Not Reportable 03/17/21 23:12 Pappenheimer Bodies Not Reportable 03/17/21 23:12 Sickle Cells Not Reportable 03/17/21 23:12 Target Cells Not Reportable 03/17/21 23:12 Tear Drop Cells Few 03/17/21 23:12 Ovalocytes Few 03/17/21 23:12 Helmet Cells Not Reportable 03/17/21 23:12 Rangel-Tangier Bodies Not Reportable 03/17/21 23:12 [place] Rings Not Reportable 03/17/21 23:12 Stacey Cells Not Reportable 03/17/21 23:12 Bite Cells Not Reportable 03/17/21 23:12 Crenated Cell Not Reportable 03/17/21 23:12 Elliptocytes Few 03/17/21 23:12 Acanthocytes (Spur) Not Reportable 03/17/21 23:12 Rouleaux Not Reportable 03/17/21 23:12 Hemoglobin C Crystals Not Reportable 03/17/21 23:12 Schistocytes Not Reportable 03/17/21 23:12 Malaria parasites Not Reportable 03/17/21 23:12 Torrey Bodies Not Reportable 03/17/21 23:12 Hem Pathologist Commnt No 03/17/21 23:12 Sodium 139 mmol/L (137-145) 03/17/21 23:12 Potassium 4.5 mmol/L (3.6-5.0) 03/17/21 23:12 Chloride 105.5 mmol/L (98-107) 03/17/21 23:12 Carbon Dioxide 22 mmol/L (22-30) 03/17/21 23:12 Anion Gap 16 mmol/L 03/17/21 23:12 BUN 44 mg/dL (7-17) H 03/17/21 23:12 Creatinine 5.0 mg/dL (0.6-1.2) H 03/17/21 23:12 Estimated GFR 10 ml/min 03/17/21 23:12 BUN/Creatinine Ratio 9 % 03/17/21 23:12 Glucose 101 mg/dL (65-100) H 03/17/21 23:12 Calcium 8.9 mg/dL (8.4-10.2) 03/17/21 23:12 Total Bilirubin 0.30 mg/dL (0.1-1.2) 03/17/21 23:12 AST 13 units/L (5-40) 03/17/21 23:12 ALT 6 units/L (7-56) L 03/17/21 23:12 Alkaline Phosphatase 84 units/L (35-129) 03/17/21 23:12 Total Protein 6.0 g/dL (6.3-8.2) L 03/17/21 23:12 Albumin 3.0 g/dL (3.9-5) L 03/17/21 23:12 Albumin/Globulin Ratio 1.0 % 03/17/21 23:12 Assessment and Plan VTE prophylaxis?: Chemical Plan of care discussed with patient/family: Yes - Patient Problems (1) ESRD (end stage renal disease) on dialysis Status: Acute Plan to address problem: Admit the patient to the medical floor. Renal diet. Continue home medication. Will consult nephrology for dialysis in the morning. Repeat BMP in the morning (2) GERD (gastroesophageal reflux disease) Status: Acute Plan to address problem: Pepcid 20 mg p.o. twice daily. We will monitor the patient closely (3) Seizure Status: Acute Plan to address problem: Patient is on Depakote 750 mg p.o. twice daily. Seroquel 400 mg p.o. twice daily we will monitor the patient closely (4) Bipolar disorder Status: Acute Plan to address problem: Patient is on risperidone 0.5 mg p.o. twice daily and Seroquel 400 mg p.o. twice daily. Outpatient follow-up with psych (5) DVT prophylaxis Status: Acute Plan to address problem: Heparin 5000 units subcu every 8 hours for DVT prophylaxis. Pepcid 20 mg p.o. twice daily for GI prophylaxis. Patient is a full code
[2021-03-18] MEDS: HEPARIN 5,000 UNIT/1 ML VIAL SUB-Q SCH ×3 (05:37→22:30)
[2021-03-18] MEDS ORDERED: FAMOTIDINE 20 MG TAB PO SCH (10:00)
[2021-03-18] MEDS ORDERED: MEMANTINE 7 MG PO SCH (10:00)
[2021-03-18] MEDS ORDERED: NON-FORMULARY EACH (Risperidone [Risperdal] 0.5 MG Tablet) PO SCH (10:00)
[2021-03-18] MEDS: MIDODRINE 5 MG TAB PO SCH ×3 (11:38→18:27)
[2021-03-18] MEDS: risperiDONE 0.25 MG TAB PO SCH ×2 (11:39→22:28)
[2021-03-18] MEDS: DIVALPROEX DR 250 MG TAB PO SCH ×2 (11:39→22:27)
[2021-03-18] MEDS: LORazepam 1 MG TAB PO SCH ×2 (11:39→22:28)
[2021-03-18] MEDS: QUEtiapine 200 MG TAB PO SCH ×2 (11:39→22:28)
[2021-03-18] MEDS: FAMOTIDINE 10 MG TAB PO SCH ×2 (11:40→22:27)
[2021-03-18] MEDS: SEVELAMER CARBONATE 800 MG TAB PO SCH ×3 (11:40→18:27)
[2021-03-18] MEDS: MEMANTINE 5 MG TAB PO SCH (11:40)
--- NOTE | 2021-03-18 11:49 | Consultation ---
History of Present Illness - Reason for Consult Consult date: 03/18/21 Reason for consult: agitation - History of Present Psychiatric Illness Patient is a 65-year-old female who presents emergency room with complaints of missed dialysis. Patient presents emergency room because she missed dialysis 2 times. Patient presents from [facility] senior living. Patient states that her fermentation scientist is Dr. Love. Patient states Dr. Love wanted her to come to specifically this hospital. Patient denies pain. Patient denies chest pain shortness of breath. Patient denies fever and chills. Oksana Randolph is a 65y/o female patient who presented to the ER for missed dial ysis. During my evaluation of the patient she is slightly irritable. She is a poor historian. She initially says "I don't feel like talking. I'm tired of talking to people." She is a/o x 2. The patient says she has a history of bipolar and takes Depakote. She says "but I already sees Dr. Ervin at [facility] for my psych." She denies SI/HI. She states "never." She also denies hallucinations of any kind. She denies any illicit drug use. Psych History Diagnosis: Bipolar Admits: Denies Suicidal attempts: Denies Medications tried: Depakote REVIEW OF SYSTEMS Constitutional: Negative for weight loss ENT: Negative for stridor Respiratory: Negative for cough or hemoptysis All other systems reviewed and are negative MENTAL STATUS EXAMINATION General Appearance and Behavior: Age appropriate, dressed appropriately, irritable, and cooperative Cooperation: Participating Psychomotor Behavior: psychomotor normal Mood: "I'm fine" Affect and affective range: congruent with states mood Thought Process: goal directed Thought Content: None Speech: Normal volume, Regular rate and rhythm, Intellectual Functioning: Average Suicidal Ideation: Denies Homicidal Ideation: Denies Hallucinations: Denies Delusions: None elicited Impulse Control: Impaired Insight and Judgment: Limited insight and judgment, Memory: Impaired Attention: Undivided Orientation: Alert, oriented Assessment and Plan (1) Bipolar Disorder Treatment Plan Agree with prescribed meds Sitter: Defer to primary Medical: Per [facility] Disposition: Do not recommend acute psychiatric treatment Will sign off. Thank you for this consult Case staffed with Dr. Goodwin. Medications and Allergies Allergies Allergy/AdvReac Type Severity Reaction Status Date / Time Penicillins Allergy Rash Verified 02/26/21 12:38 corn AdvReac Unknown Verified 02/26/21 12:38 Home Medications Medication Instructions Recorded Confirmed Last Taken Type Acetaminophen [Acetaminophen TAB] 650 mg PO Q4H PRN tablet 06/03/19 02/26/21 09/02/20 Rx LORazepam [Ativan] 1 mg PO BID 08/20/19 02/26/21 03/28/20 17:00 History Memantine Xr [Namenda Xr] 5 mg PO DAILY 08/20/19 02/26/21 03/28/20 09:00 History Midodrine [Proamatine] 10 mg PO TID 08/20/19 02/26/21 03/28/20 17:00 History QUEtiapine [SEROquel] 400 mg PO BID 08/20/19 02/26/21 03/28/20 20:00 History Pantoprazole [Protonix TAB] 40 mg PO BID tablet 10/12/19 02/26/21 03/28/20 17:00 Rx HYDROcodone/APAP 5-325 [[place] 1 each PO Q6H PRN #24 tablet 03/29/20 02/26/21 Unknown Rx 5-325 mg TAB] Sevelamer Carbonate [Renvela] 0.8 gram PO TIDWM 09/02/20 02/26/21 Unknown His tory Divalproex [Sarina Serrano] 750 mg PO BID tablet 09/13/20 02/26/21 Unknown Rx Potassium Chloride [K-Dur] 10 meq PO DAILY 02/26/21 02/26/21 Unknown History risperiDONE [RisperDAL] 0.5 mg PO BID 02/26/21 02/26/21 Unknown History Active Meds: Active Medications Acetaminophen (Acetaminophen 325 Mg Tab) 650 mg PO Q4H PRN PRN Reason: Pain MILD(1-3)/Fever >100.5/DRAKE Hydrocodone Bitart/Acetaminophen (Hydrocodone/Acetaminophen 5-325 Mg Tab) 1 each PO Q6H PRN PRN Reason: Pain, Moderate (4-6) Albuterol (Albuterol 2.5 Mg/3 Ml Nebu) 2.5 mg IH Q4HRT PRN PRN Reason: Shortness Of Breath Divalproex Sodium (Divalproex Dr 250 Mg Tab) 750 mg PO BID [facility] Last Admin: 03/18/21 11:39 Dose: 750 mg Documented by: Famotidine (Famotidine 10 Mg Tab) 10 mg PO BID [facility] Last Admin: 03/18/21 11:40 Dose: 10 mg Documented by: Heparin Sodium (Porcine) (Heparin 5,000 Unit/1 Ml Vial) 5,000 unit SUB-Q Q8HR [facility] Last Admin: 03/18/21 05:37 Dose: Not Given Documented by: Hydralazine HCl (Hydralazine 20 Mg/1 Ml Inj) 10 mg IV Q6H PRN PRN Reason: Blood Pressure Lorazepam (Lorazepam 1 Mg Tab) 1 mg PO BID [facility] Last Admin: 03/18/21 11:39 Dose: 1 mg Documented by: Memantine (Memantine 5 Mg Tab) 5 mg PO QDAY [facility] Last Admin: 03/18/21 11:40 Dose: 5 mg Documented by: Midodrine (Midodrine 5 Mg Tab) 10 mg PO TID@0800,1400,1800 [facility] Last Admin: 03/18/21 11:38 Dose: 10 mg Documented by: Ondansetron HCl (Ondansetron 4 Mg/2 Ml Inj) 4 mg IV Q8H PRN PRN Reason: Nausea And Vomiting Quetiapine Fumarate (Quetiapine 200 Mg Tab) 400 mg PO BID [facility] Last Admin: 03/18/21 11:39 Dose: 400 mg Documented by: Risperidone (Risperidone 0.25 Mg Tab) 0.5 mg PO BID [facility] Last Admin: 03/18/21 11:39 Dose: 0.5 mg Documented by: Sevelamer Carbonate (Sevelamer Carbonate 800 Mg Tab) 800 mg PO TIDWM [facility] Last Admin: 03/18/21 11:40 Dose: 800 mg Documented by: Sodium Chloride (Sodium Chloride 0.9% 10 Ml Flush Syringe) 10 ml IV BID [facility] Last Admin: 03/18/21 11:40 Dose: 10 ml Documented by: Sodium Chloride (Sodium Chloride 0.9% 10 Ml Flush Syringe) 10 ml IV PRN PRN PRN Reason: LINE FLUSH Mental Status Exam - Vital signs Last Vital Signs Temp 98.6 F 03/18/21 07:45 Pulse 65 03/18/21 07:45 Resp 18 03/18/21 07:45 BP 145/63 03/18/21 07:45 Pulse Ox 98 03/18/21 07:45 Results Result Diagrams: 03/17/21 23:12 03/17/21 23:12 Abnormal lab results 03/17/21 03/17/21 Range/Units 23:12 23:12 WBC 3.9 L (4.5-11.0) K/mm3 MCH 26 L (28-32) pg RDW 22.0 H (13.2-15.2) % Seg Neuts % (Manual) 32.0 L (40.0-70.0) % Lymphocytes % (Manual) 49.0 H (13.4-35.0) % Eosinophils % (Manual) 12.0 H (0.0-4.3) % Basophils % (Manual) 2.0 H (0.0-1.8) % Seg Neutrophils # Man 1.2 L (1.8-7.7) K/mm3 Eosinophils # (Manual) 0.5 H (0.0-0.4) K/mm3 BUN 44 H (7-17) mg/dL Creatinine 5.0 H (0.6-1.2) mg/dL Glucose 101 H (65-100) mg/dL ALT 6 L (7-56) units/L Total Protein 6.0 L (6.3-8.2) g/dL Albumin 3.0 L (3.9-5) g/dL All other labs normal.
[2021-03-18] MEDS ORDERED: SODIUM CHLORIDE 0.9% 100 ML IV PRN (12:57)
--- NOTE | 2021-03-18 13:49 | Consultation ---
History of Present Illness - Reason for Consult Consult date: 03/18/21 end stage renal disease Requesting physician: AIDEN BUTTERFIELD - History of Present Illness 65-year-old female with history of end-stage renal disease on hemodialysis was brought to the emergency room because of missed dialysis 2 times. Patient presents from [facility]. Patient states that her systems protection technician is Dr. Love. Patient states Dr. Love wanted her to come to specifically this hospital. Patient denies pain. Patient denies chest pain shortness of breath. Patient denies fever and chills. Patient is somewhat confused at this time. Unable to get much information from her Past History Past Medical History: arthritis, ESRD, GERD, hypertension, seizures, other (Dementia schizophrenia) Medications and Allergies Allergies Allergy/AdvReac Type Severity Reaction Status Date / Time Penicillins Allergy Rash Verified 02/26/21 12:38 corn AdvReac Unknown Verified 02/26/21 12:38 Home Medications Medication Instructions Recorded Confirmed Last Taken Type Acetaminophen [Acetaminophen TAB] 650 mg PO Q4H PRN tablet 06/03/19 03/18/21 09/02/20 Rx LORazepam [Ativan] 1 mg PO BID 08/20/19 03/18/21 2 Days Ago History ~03/16/21 Memantine Xr [Namenda Xr] 5 mg PO DAILY 08/20/19 03/18/21 2 Days Ago History ~03/16/21 Midodrine [Proamatine] 10 mg PO TID 08/20/19 03/18/21 2 Days Ago History ~03/16/21 QUEtiapine [SEROquel] 400 mg PO BID 08/20/19 03/18/21 2 Days Ago History ~03/16/21 Pantoprazole [Protonix TAB] 40 mg PO BID tablet 10/12/19 03/18/21 2 Days Ago Rx ~03/16/21 Sevelamer Carbonate [Renvela] 0.8 gram PO TIDWM 09/02/20 03/18/21 2 Days Ago History ~03/16/[address] [Depakote Dr] 750 mg PO BID tablet 09/13/20 03/18/21 2 Days Ago Rx ~03/16/21 Potassium Chloride [K-Dur] 10 meq PO DAILY 02/26/21 03/18/21 2 Days Ago History ~03/16/21 risperiDONE [RisperDAL] 0.5 mg PO BID 02/26/21 03/18/21 2 Days Ago History ~03/16/21 Active Meds: Active Medications Acetaminophen (Acetaminophen 325 Mg Tab) 650 mg PO Q4H PRN PRN Reason: Pain MILD(1-3)/Fever >100.5/DRAKE Hydrocodone Bitart/Acetaminophen (Hydrocodone/Acetaminophen 5-325 Mg Tab) 1 each PO Q6H PRN PRN Reason: Pain, Moderate (4-6) Albuterol (Albuterol 2.5 Mg/3 Ml Nebu) 2.5 mg IH Q4HRT PRN PRN Reason: Shortness Of Breath Divalproex Sodium (Divalproex Dr 250 Mg Tab) 750 mg PO BID [facility] Last Admin: 03/18/21 11:39 Dose: 750 mg Documented by: Famotidine (Famotidine 10 Mg Tab) 10 mg PO BID [facility] Last Admin: 03/18/21 11:40 Dose: 10 mg Documented by: Heparin Sodium (Porcine) (Heparin 5,000 Unit/1 Ml Vial) 5,000 unit SUB-Q Q8HR [facility] Last Admin: 03/18/21 05:37 Dose: Not Given Documented by: Hydralazine HCl (Hydralazine 20 Mg/1 Ml Inj) 10 mg IV Q6H PRN PRN Reason: Blood Pressure Sodium Chloride (Nacl 0.9%) 100 mls @ 999 mls/hr IV BIANCA PRN PRN Reason: Hypotension Lorazepam (Lorazepam 1 Mg Tab) 1 mg PO BID [facility] Last Admin: 03/18/21 11:39 Dose: 1 mg Documented by: Memantine (Memantine 5 Mg Tab) 5 mg PO QDAY [facility] Last Admin: 03/18/21 11:40 Dose: 5 mg Documented by: Midodrine (Midodrine 5 Mg Tab) 10 mg PO TID@0800,1400,1800 [facility] Last Admin: 03/18/21 11:38 Dose: 10 mg Documented by: Ondansetron HCl (Ondansetron 4 Mg/2 Ml Inj) 4 mg IV Q8H PRN PRN Reason: Nausea And Vomiting Quetiapine Fumarate (Quetiapine 200 Mg Tab) 400 mg PO BID [facility] Last Admin: 03/18/21 11:39 Dose: 400 mg Documented by: Risperidone (Risperidone 0.25 Mg Tab) 0.5 mg PO BID [facility] Last Admin: 03/18/21 11:39 Dose: 0.5 mg Documented by: Sevelamer Carbonate (Sevelamer Carbonate 800 Mg Tab) 800 mg PO TIDWM [facility] Last Admin: 03/18/21 11:40 Dose: 800 mg Documented by: Sodium Chloride (Sodium Chloride 0.9% 10 Ml Flush Syringe) 10 ml IV BID [facility] Last Admin: 03/18/21 11:40 Dose: 10 ml Documented by: Sodium Chloride (Sodium Chloride 0.9% 10 Ml Flush Syringe) 10 ml IV PRN PRN PRN Reason: LINE FLUSH Review of Systems All systems: negative (Negative except as noted above) Exam - Vital Signs Vital signs: Vital Signs Temp Pulse Resp BP Pulse Ox 98.8 F 102 H 19 139/81 96 03/17/21 20:15 03/17/21 20:15 03/17/21 20:15 03/17/21 20:15 03/17/21 20:15 - General Appearance General appearance: well-developed, well-nourished, appears stated age EENT: PERRL, mucous membranes moist Neck: Present: neck supple, trachea midline, Other (Left IJ PermCath in place). Absent: JVD/HJR, Masses Respiratory: Clear to Ascultation Heart: regular, normal heart rate, S1S2, no murmurs Gastrointestinal: Present: normal, normoactive bowel sounds Integumentary: no rash, other (Trace edema) Results - Lab Results 03/17/21 23:12 03/17/21 23:12 Most recent lab results Calcium 8.9 mg/dL (8.4-10.2) 03/17/21 23:12 Assessment and Plan Impression * End-stage renal disease on maintenance hemodialysis * Hypertension * Dementia * Bipolar disorder Recommendations * Shall schedule patient for hemodialysis treatment for today * Keep her on MWF schedule for now * She undergoes hemodialysis at [facility] under our care * Adjust diet and meds for ESRD state * Epogen per protocol * Psychiatry consultation appreciated * Avoid nephrotoxins * Thank you very much for the consultation. Shall follow along with you
--- NOTE | 2021-03-18 14:21 | Event Note ---
Date: 03/18/21 Patient seen and examined, patient in the past 2 sessions, brought to [facility] for dialysis. Nephrology has been consulted, patient has Sunday schedule, will dialyze patient today. Agree with assessment and plan as outlined by admitting physician.
[2021-03-18 14:35] LABS: Hepatitis B Surface Antigen Non-Reactive (Negative); Hepatitis C Virus Antibody Non-Reactive (NonReactive)
[2021-03-19 05:54] LABS: Basophils % (Auto) 0.8 % (0.0-1.8); Eosinophils # (Auto) 0.3 K/mm3 (0.0-0.4); Eosinophils % (Auto) 8.2 % (0.0-4.3); Hematocrit 35.9 % (30.3-42.9); Hemoglobin 11.3 gm/dl (10.1-14.3); Lymphocytes # (Auto) 1.7 K/mm3 (1.2-5.4); Lymphocytes % (Auto) 46.1 % (13.4-35.0); Mean Corpuscular HGB Conc 32 % (30-34); Mean Corpuscular Volume 83 fl (79-97); Monocytes # (Auto) 0.3 K/mm3 (0.0-0.8); Platelet Count 129 K/mm3 (140-440); Red Blood Count 4.33 M/mm3 (3.65-5.03)
[2021-03-19 05:59] LABS: Red Cell Distribution Width 21.3 % (13.2-15.2)
[2021-03-19 06:20] LABS: Calcium 8.4 mg/dL (8.4-10.2)
[2021-03-19] MEDS: HEPARIN 5,000 UNIT/1 ML VIAL SUB-Q SCH ×3 (06:43→22:28)
--- NOTE | 2021-03-19 09:57 | Discharge Summary ---
Providers - Providers Date of Admission: 03/18/21 14:52 Date of discharge: 03/19/21 Attending physician: AIDEN BUTTERFIELD MD 03/18/21 00:13 Consult to Physician [CONS] Routine Comment: Dr. Salinas spoke with Dr. Gardner @ 0010 Consulting Provider: CHRIS GARDNER Physician Instructions: Reason For Exam: hd, esrd Primary care physician: [employer]ER Hospitalization Condition: Good Hospital course: 65-year-old -[place] female from [facility] intermediate who presented for dialysis. Patient underwent dialysis x1, nephrology stated patient can continue Sunday schedule. Spoke with son, agreeable to send patient back to intermediate. (1) ESRD (end stage renal disease) on dialysis Status: Acute Plan to address problem: Nephrology consulted Labs normalized for end-stage renal disease, continue Sunday schedule (2) GERD (gastroesophageal reflux disease) Status: Acute Plan to address problem: Pepcid 20 mg p.o. twice daily. (3) Seizure Status: Acute Plan to address problem: Patient is on Depakote 750 mg p.o. twice daily. Seroquel 400 mg p.o. twice daily we will monitor the patient closely No seizure reported (4) Bipolar disorder Status: Acute Plan to address problem: Patient is on risperidone 0.5 mg p.o. twice daily and Seroquel 400 mg p.o. twice daily. Psychiatry consulted, does not meet inpatient psychiatric criteria Continue with medication Disposition: DC/TX-70 ANOTHER TYPE HLTHCARE Final Discharge Diagnosis (Prints w/discharge instructions): End-stage renal disease. GERD. Seizure disorder. Bipolar disorder Time spent for discharge: 35 minutes Core Measure Documentation - Palliative Care Palliative Care/ Comfort Measures: Not Applicable - Core Measures Any of the following diagnoses?: none Exam - Physical Exam Narrative exam: General appearance: no acute distress, well-nourished EENT: PERRL, EOM intact, hearing intact, clear oral mucosa Neck: Present: supple, normal ROM Respiratory: bilateral CTA, negative: rales, rhonchi, wheezing Cardiovascular: Regular rate/rhythm, Normal S1 & S2. No gallop, rub, Permacath in left chest Extremities: no ischemia, No edema, normal temperature, normal color, Full ROM Abdominal: soft, no tenderness, non-distended, normal bowel sounds Integumentary: Present: clear, warm, dry no wounds, no erythema noted Psychiatric: appropriate mood/affect, poor judgment & insight Neurologic: CNII-XII intact, moves all extremities, no sensory or motor abnormalities - Constitutional Vitals: Temp Pulse Resp BP Pulse Ox 97.5 F L 98 H 18 107/58 95 03/19/21 07:23 03/19/21 07:23 03/19/21 07:23 03/19/21 07:23 03/19/21 08:18 Plan Activity: no restrictions Weight Bearing Status: Weight Bear as Tolerated Diet: renal Follow up with: PRIMARY CARE, [Primary Care Provider] - 7 Days
[2021-03-19] MEDS: FAMOTIDINE 10 MG TAB PO SCH ×2 (10:46→21:54)
[2021-03-19] MEDS: QUEtiapine 200 MG TAB PO SCH ×2 (10:46→21:54)
[2021-03-19] MEDS: MEMANTINE 5 MG TAB PO SCH (10:46)
[2021-03-19] MEDS: LORazepam 1 MG TAB PO SCH ×2 (10:47→21:54)
[2021-03-19] MEDS: risperiDONE 0.25 MG TAB PO SCH ×2 (10:47→21:54)
[2021-03-19] MEDS: DIVALPROEX DR 250 MG TAB PO SCH ×2 (10:47→21:54)
[2021-03-19] MEDS: SEVELAMER CARBONATE 800 MG TAB PO SCH ×3 (10:47→17:50)
[2021-03-19] MEDS: MIDODRINE 5 MG TAB PO SCH ×3 (10:47→17:50)
--- NOTE | 2021-03-19 11:43 | Progress Note ---
Assessment and Plan Impression * End-stage renal disease on maintenance hemodialysis * Hypertension * Dementia * Bipolar disorder Recommendations * Uneventful hemodialysis yesterday * Keep her on MWF schedule for now * She undergoes hemodialysis at [facility] under our care * Adjust diet and meds for ESRD state * Epogen per protocol * Psychiatry consultation appreciated * Avoid nephrotoxins * No objection to discharge from renal standpoint Subjective Date of service: 03/19/21 Interval history: Patient is comfortable today. Denies any shortness of breath. No nausea or vomiting. Objective - Vital Signs Vital signs: Vital Signs - 12hr 03/19/21 03/19/21 03/19/21 03:40 07:23 08:18 Temperature 98.3 F 97.5 F L Pulse Rate 97 H 98 H Respiratory 16 18 Rate Blood Pressure 107/64 107/58 O2 Sat by Pulse 96 92 95 Oximetry - General Appearance General appearance: well-developed, well-nourished, appears stated age EENT: PERRL, mucous membranes moist Neck: no JVD, no thyromegaly, no carotid bruit, supple, other (Left IJ PermCath in place) Respiratory: Present: Clear to Ascultation Cardiology: regular, normal heart rate, S1S2, no murmurs Gastrointestinal: normal, normoactive bowel sounds - Lab 03/19/21 04:30 03/19/21 04:30 Most recent lab results Calcium 8.4 mg/dL (8.4-10.2) 03/19/21 04:30 Medications & Allergies - Medications Allergies/Adverse Reactions: Allergies Penicillins Allergy (Verified 02/26/21 12:38) Rash corn Adverse Reaction (Verified 02/26/21 12:38) Unknown Home Medications: Home Medications Medication Instructions Recorded Confirmed Last Taken Type Acetaminophen [Acetaminophen TAB] 650 mg PO Q4H PRN tablet 06/03/19 03/18/21 09/02/20 Rx LORazepam [Ativan] 1 mg PO BID 08/20/19 03/18/21 2 Days Ago History ~03/16/21 Memantine Xr [Namenda Xr] 5 mg PO DAILY 08/20/19 03/18/21 2 Days Ago History ~03/16/21 Midodrine [Proamatine] 10 mg PO TID 08/20/19 03/18/21 2 Days Ago History ~03/16/21 QUEtiapine [SEROquel] 400 mg PO BID 08/20/19 03/18/21 2 Days Ago History ~03/16/21 Pantoprazole [Protonix TAB] 40 mg PO BID tablet 10/12/19 03/18/21 2 Days Ago Rx ~03/16/21 Sevelamer Carbonate [Renvela] 0.8 gram PO TIDWM 09/02/20 03/18/21 2 Days Ago History ~03/16/[address] [Sarina Serrano] 750 mg PO BID tablet 09/13/20 03/18/21 2 Days Ago Rx ~03/16/21 Potassium Chloride [K-Dur] 10 meq PO DAILY 02/26/21 03/18/21 2 Days Ago History ~03/16/21 risperiDONE [RisperDAL] 0.5 mg PO BID 02/26/21 03/18/21 2 Days Ago History ~03/16/21 Active Medications: Generic Name Dose Route Start Last Admin Trade Name Freq PRN Reason Stop Dose Admin Acetaminophen 650 mg 03/18/21 01:27 Acetaminophen 325 Mg Tab PO Q4H PRN Pain MILD(1-3)/Fever >100.5/DRAKE Hydrocodone Bitart/Acetaminophen 1 each 03/18/21 01:29 Hydrocodone/Acetaminophen 5-325 Mg Tab PO Q6H PRN Pain, Moderate (4-6) Albuterol 2.5 mg 03/18/21 01:27 Albuterol 2.5 Mg/3 Ml Nebu IH Q4HRT PRN Shortness Of Breath Divalproex Sodium 750 mg 03/18/21 10:00 03/19/21 10:[address] 250 Mg Tab PO 750 mg BID [facility] Administration Famotidine 10 mg 03/18/21 10:00 03/19/21 10:46 Famotidine 10 Mg Tab PO 10 mg BID [facility] Administration Heparin Sodium (Porcine) 5,000 unit 03/18/21 06:00 03/19/21 06:43 Heparin 5,000 Unit/1 Ml Vial SUB-Q Not Given Q8HR [facility] Hydralazine HCl 10 mg 03/18/21 01:31 Hydralazine 20 Mg/1 Ml Inj IV Q6H PRN SBP >/=160;DBP >/=100 Sodium Chloride 100 mls @ 999 mls/hr 03/18/21 12:57 Nacl 0.9% IV BIANCA PRN Hypotension Lorazepam 1 mg 03/18/21 10:00 03/19/21 10:47 Lorazepam 1 Mg Tab PO 1 mg BID [facility] Administration Memantine 5 mg 03/18/21 10:00 03/19/21 10:46 Memantine 5 Mg Tab PO 5 mg QDAY [facility] Administration Midodrine 10 mg 03/18/21 08:00 03/19/21 10:47 Midodrine 5 Mg Tab PO 10 mg TID@0800,1400,1800 [facility] Administration Ondansetron HCl 4 mg 03/18/21 01:27 Ondansetron 4 Mg/2 Ml Inj IV Q8H PRN Nausea And Vomiting Quetiapine Fumarate 400 mg 03/18/21 10:00 03/19/21 10:46 Quetiapine 200 Mg Tab PO 400 mg BID [facility] Administration Risperidone 0.5 mg 03/18/21 10:00 03/19/21 10:47 Risperidone 0.25 Mg Tab PO 0.5 mg BID [facility] Administration Sevelamer Carbonate 800 mg 03/18/21 08:00 03/19/21 10:47 Sevelamer Carbonate 800 Mg Tab PO 800 mg TIDWM [facility] Administration Sodium Chloride 10 ml 03/18/21 10:00 03/19/21 10:47 Sodium Chloride 0.9% 10 Ml Flush Syringe IV 10 ml BID [facility] Administration Sodium Chloride 10 ml 03/18/21 01:27 Sodium Chloride 0.9% 10 Ml Flush Syringe IV PRN PRN LINE FLUSH
[2021-03-20] MEDS: HEPARIN 5,000 UNIT/1 ML VIAL SUB-Q SCH (05:39)
[2021-03-20] MEDS: MIDODRINE 5 MG TAB PO SCH (09:58)
[2021-03-20] MEDS: QUEtiapine 200 MG TAB PO SCH (09:58)
[2021-03-20] MEDS: LORazepam 1 MG TAB PO SCH (09:58)
[2021-03-20] MEDS: DIVALPROEX DR 250 MG TAB PO SCH (09:58)
[2021-03-20] MEDS: risperiDONE 0.25 MG TAB PO SCH (09:58)
[2021-03-20] MEDS: SEVELAMER CARBONATE 800 MG TAB PO SCH (09:59)
[2021-03-20] MEDS: MEMANTINE 5 MG TAB PO SCH (09:59)
[2021-03-20] MEDS: FAMOTIDINE 10 MG TAB PO SCH (09:59)
[2021-03-20 10:06] VITALS: BP 117/57
--- NOTE | 2021-03-20 11:09 | Discharge Summary ---
Providers - Providers Date of Admission: 03/18/21 14:52 Date of discharge: 03/20/21 Attending physician: AIDEN BUTTERFIELD MD 03/18/21 00:13 Consult to Physician [CONS] Routine Comment: Dr. Salinas spoke with Dr. Gardner @ 0010 Consulting Provider: CHRIS GARDNER Physician Instructions: Reason For Exam: hd, esrd Primary care physician: MEDICAL CLAIMS REPRESENTATIVE Hospitalization Condition: Good Hospital course: 65-year-old -[place] female from [facility] snf who presented for dialysis. Patient underwent dialysis x1, nephrology stated patient can continue Sunday schedule. Spoke with son, agreeable to send patient back to snf. (1) ESRD (end stage renal disease) on dialysis Status: Acute Plan to address problem: Nephrology consulted Labs normalized for end-stage renal disease, continue Sunday schedule (2) GERD (gastroesophageal reflux disease) Status: Acute Plan to address problem: Pepcid 20 mg p.o. twice daily. (3) Seizure Status: Acute Plan to address problem: Patient is on Depakote 750 mg p.o. twice daily. Seroquel 400 mg p.o. twice daily we will monitor the patient closely No seizure reported (4) Bipolar disorder Status: Acute Plan to address problem: Patient is on risperidone 0.5 mg p.o. twice daily and Seroquel 400 mg p.o. twice daily. Psychiatry consulted, does not meet inpatient psychiatric criteria Continue with medication Disposition: DC/TX-70 ANOTHER TYPE HLTHCARE Final Discharge Diagnosis (Prints w/discharge instructions): End-stage renal disease. GERD. Seizure disorder. Bipolar disorder Time spent for discharge: 35 minutes Disposition: DC/TX-70 ANOTHER TYPE HLTHCARE Final Discharge Diagnosis (Prints w/discharge instructions): End-stage renal disease. GERD. Seizure disorder. Bipolar disorder Core Measure Documentation - Palliative Care Palliative Care/ Comfort Measures: Not Applicable - Core Measures Any of the following diagnoses?: none Exam - Physical Exam Narrative exam: General appearance: no acute distress, well-nourished EENT: PERRL, EOM intact, hearing intact, clear oral mucosa Neck: Present: supple, normal ROM Respiratory: bilateral CTA, negative: rales, rhonchi, wheezing Cardiovascular: Regular rate/rhythm, Normal S1 & S2. No gallop, rub, Permacath in left chest Extremities: no ischemia, No edema, normal temperature, normal color, Full ROM Abdominal: soft, no tenderness, non-distended, normal bowel sounds Integumentary: Present: clear, warm, dry no wounds, no erythema noted Psychiatric: appropriate mood/affect, poor judgment & insight Neurologic: CNII-XII intact, moves all extremities, no sensory or motor abnormalities - Constitutional Vitals: Temp Pulse Resp BP Pulse Ox 98.1 F 89 18 117/57 95 03/20/21 08:41 03/20/21 08:41 03/20/21 08:41 03/20/21 08:41 03/20/21 09:23 Plan Follow up with: PRIMARY CARE, [Primary Care Provider] - 7 Days
--- NOTE | 2021-03-20 12:24 | Progress Note ---
Assessment and Plan Impression * End-stage renal disease on maintenance hemodialysis * Hypertension * Dementia * Bipolar disorder Recommendations * Uneventful hemodialysis on Sunday * Keep her on MWF schedule for now * She undergoes hemodialysis at [facility] under our care * Adjust diet and meds for ESRD state * Epogen per protocol * Psychiatry consultation appreciated * Avoid nephrotoxins * No objection to discharge from renal standpoint Subjective Date of service: 03/20/21 Interval history: Patient is comfortable today. Denies any shortness of breath. No nausea or vomiting. Objective - Vital Signs Vital signs: Vital Signs - 12hr 03/20/21 03/20/21 03/20/21 03:00 08:41 09:23 Temperature 98.0 F 98.1 F Pulse Rate 87 89 Respiratory 16 18 Rate Blood Pressure 116/56 117/57 O2 Sat by Pulse 95 96 95 Oximetry - General Appearance General appearance: well-developed, well-nourished, appears stated age EENT: ATNC Neck: no JVD, other (Left IJ PermCath in place) Respiratory: Present: Clear to Ascultation Cardiology: regular, normal heart rate Gastrointestinal: normal, normoactive bowel sounds Integumentary: other (No edema) - Lab 03/19/21 04:30 03/19/21 04:30 Most recent lab results Calcium 8.4 mg/dL (8.4-10.2) 03/19/21 04:30 Medications & Allergies - Medications Allergies/Adverse Reactions: Allergies Penicillins Allergy (Verified 02/26/21 12:38) Rash corn Adverse Reaction (Verified 02/26/21 12:38) Unknown Home Medications: Home Medications Medication Instructions Recorded Confirmed Last Taken Type Acetaminophen [Acetaminophen TAB] 650 mg PO Q4H PRN tablet 06/03/19 03/18/21 09/02/20 Rx LORazepam [Ativan] 1 mg PO BID 08/20/19 03/18/21 2 Days Ago History ~03/16/21 Memantine Xr [Namenda Xr] 5 mg PO DAILY 08/20/19 03/18/21 2 Days Ago History ~03/16/21 Midodrine [Proamatine] 10 mg PO TID 08/20/19 03/18/21 2 Days Ago History ~03/16/21 QUEtiapine [SEROquel] 400 mg PO BID 08/20/19 03/18/21 2 Days Ago History ~03/16/21 Pantoprazole [Protonix TAB] 40 mg PO BID tablet 10/12/19 03/18/21 2 Days Ago Rx ~03/16/21 Sevelamer Carbonate [Renvela] 0.8 gram PO TIDWM 09/02/20 03/18/21 2 Days Ago History ~03/16/[address] [Depakote Dr] 750 mg PO BID tablet 09/13/20 03/18/21 2 Days Ago Rx ~03/16/21 Potassium Chloride [K-Dur] 10 meq PO DAILY 02/26/21 03/18/21 2 Days Ago History ~03/16/21 risperiDONE [RisperDAL] 0.5 mg PO BID 02/26/21 03/18/21 2 Days Ago History ~03/16/21 Active Medications: Generic Name Dose Route Start Last Admin Trade Name Freq PRN Reason Stop Dose Admin Acetaminophen 650 mg 03/18/21 01:27 Acetaminophen 325 Mg Tab PO Q4H PRN Pain MILD(1-3)/Fever >100.5/DRAKE Hydrocodone Bitart/Acetaminophen 1 each 03/18/21 01:29 Hydrocodone/Acetaminophen 5-325 Mg Tab PO Q6H PRN Pain, Moderate (4-6) Albuterol 2.5 mg 03/18/21 01:27 Albuterol 2.5 Mg/3 Ml Nebu IH Q4HRT PRN Shortness Of Breath Divalproex Sodium 750 mg 03/18/21 10:00 03/20/21 09:[address] 250 Mg Tab PO 750 mg BID [facility] Administration Famotidine 10 mg 03/18/21 10:00 03/20/21 09:59 Famotidine 10 Mg Tab PO 10 mg BID [facility] Administration Heparin Sodium (Porcine) 5,000 unit 03/18/21 06:00 03/20/21 05:39 Heparin 5,000 Unit/1 Ml Vial SUB-Q Not Given Q8HR [facility] Hydralazine HCl 10 mg 03/18/21 01:31 Hydralazine 20 Mg/1 Ml Inj IV Q6H PRN SBP >/=160;DBP >/=100 Sodium Chloride 100 mls @ 999 mls/hr 03/18/21 12:57 Nacl 0.9% IV BIANCA PRN Hypotension Lorazepam 1 mg 03/18/21 10:00 03/20/21 09:58 Lorazepam 1 Mg Tab PO 1 mg BID [facility] Administration Memantine 5 mg 03/18/21 10:00 03/20/21 09:59 Memantine 5 Mg Tab PO 5 mg QDAY [facility] Administration Midodrine 10 mg 03/18/21 08:00 03/20/21 09:58 Midodrine 5 Mg Tab PO 10 mg TID@0800,1400,1800 [facility] Administration Ondansetron HCl 4 mg 03/18/21 01:27 Ondansetron 4 Mg/2 Ml Inj IV Q8H PRN Nausea And Vomiting Quetiapine Fumarate 400 mg 03/18/21 10:00 03/20/21 09:58 Quetiapine 200 Mg Tab PO 400 mg BID [facility] Administration Risperidone 0.5 mg 03/18/21 10:00 03/20/21 09:58 Risperidone 0.25 Mg Tab PO 0.5 mg BID [facility] Administration Sevelamer Carbonate 800 mg 03/18/21 08:00 03/20/21 09:59 Sevelamer Carbonate 800 Mg Tab PO 800 mg TIDWM [facility] Administration Sodium Chloride 10 ml 03/18/21 10:00 03/20/21 09:59 Sodium Chloride 0.9% 10 Ml Flush Syringe IV 10 ml BID [facility] Administration Sodium Chloride 10 ml 03/18/21 01:27 Sodium Chloride 0.9% 10 Ml Flush Syringe IV PRN PRN LINE FLUSH
== END 2021-03-20 18:19 | DRG 682 ==
LOC: ED 19:42 → 4A 03-18 00:18 → OBSVTOIN 03-18 14:52
PROVIDERS: ADMIT Hospitalist; ATTEND Family Medicine
PROC: 5A1D70Z Performance of Urinary Filtration, Intermittent, Less than 6 Hours Per Day (ICD-10-PCS; principal; 2021-03-18)
DX: I12.0 Hypertensive chronic kidney disease with stage 5 chronic kidney disease or end stage renal disease (principal); N18.6 End stage renal disease; F41.9 Anxiety disorder, unspecified; F20.9 Schizophrenia, unspecified; F31.9 Bipolar disorder, unspecified; M19.90 Unspecified osteoarthritis, unspecified site; R56.9 Unspecified convulsions; F03.90 Unspecified dementia, unspecified severity, without behavioral disturbance, psychotic disturbance, mood disturbance, and anxiety; K21.9 Gastro-esophageal reflux disease without esophagitis; Z20.822 Contact with and (suspected) exposure to COVID-19; Z79.899 Other long term (current) drug therapy; Z79.891 Long term (current) use of opiate analgesic; Z79.01 Long term (current) use of anticoagulants; Z88.0 Allergy status to penicillin; Z91.018 Allergy to other foods; Z90.710 Acquired absence of both cervix and uterus; Z99.2 Dependence on renal dialysis; Z91.15 Patient's noncompliance with renal dialysis
CPT/HCPCS: 36415; 80048; 80053; 80074; 85007; 85025; G0378; U0003

== ENCOUNTER 2021-05-18 05:59 | Day surgery (SDC) | payer MEDICARE ==
[2021-05-18] MEDS ORDERED: MIDAZOLAM 2 MG/2 ML INJ IV NR (06:00)
[2021-05-18] MEDS ORDERED: fentaNYL 100 MCG/2 ML INJ IV PRN ×2 (06:00→11:59)
[2021-05-18] MEDS ORDERED: SODIUM CHLORIDE 0.9% 1000 ML 1,000 ML IV SCH (06:00)
[2021-05-18] MEDS ORDERED: LIDOCAINE MPF (2%) 20 MG/1 ML VIAL 5 ML ONE (07:14)
[2021-05-18] MEDS ORDERED: fentaNYL 100 MCG/2 ML INJ ONE (07:15)
[2021-05-18] MEDS ORDERED: MIDAZOLAM 2 MG/2 ML INJ ONE (07:15)
[2021-05-18] MEDS ORDERED: propofoL 200 MG/20 ML VIAL IV ONE ×3 (07:16)
[2021-05-18] MEDS ORDERED: ePHEDrine SULFATE 50 MG/1 ML INJ ONE ×2 (07:20→09:31)
[2021-05-18] MEDS ORDERED: HEPARIN 10,000 UNITS/10 ML VIAL ONE (07:37)
[2021-05-18] MEDS ORDERED: BUPIVACAINE/PF (0.5%) 5 MG/1 ML 30 ML VIAL INFILTRATI ONE ×2 (07:37→09:59)
[2021-05-18] MEDS ORDERED: SODIUM CHLORIDE 0.9% 250ML 250 ML ONE (07:38)
[2021-05-18] MEDS ORDERED: SODIUM CHLORIDE 0.9% 500 ML 500 ML ONE (07:38)
[2021-05-18] MEDS ORDERED: rifAMPin 600 MG VIAL ONE (07:39)
[2021-05-18 07:41] LABS: Hematocrit 33.8 % (30.3-42.9); Hemoglobin 10.8 gm/dl (10.1-14.3); Mean Corpuscular HGB Conc 32 % (30-34); Mean Corpuscular Volume 82 fl (79-97); Platelet Count 146 K/mm3 (140-440); Red Blood Count 4.15 M/mm3 (3.65-5.03); Red Cell Distribution Width 17.1 % (13.2-15.2)
--- NOTE | 2021-05-18 07:48 | Anesthesia Consultation ---
Anesthesia Consult and Med Hx Date of service: 05/18/21 - Airway Anesthetic Teeth Evaluation: Poor ROM Head & Neck: Adequate Mental/Hyoid Distance: Adequate Mallampati Class: Class IV (unclear if limited mouth opening 2/2 effort) Intubation Access Assessment: Possibly Difficult (previous LMA 4) - Pre-Operative Health Status ASA Pre-Surgery Classification: ASA3 Proposed Anesthetic Plan: MAC Nerve Block: supraclavicular - Pulmonary Hx Respiratory Symptoms: No - Cardiovascular System Hx Hypertension: Yes Hx Heart Attack/AMI: No (normal LV function on JAYDEN 08/2020) Hx Percutaneous Transluminal Coronary Angioplasty (PTCA): No Hx Cardia Arrhythmia: No - Central Nervous System Hx Seizures: Yes (hx seiures in chart and AEDs on med list but patient and son deny) CVA: No Hx Psychiatric Problems: Yes (dementia) - Gastrointestinal Hx Gastroesophageal Reflux Disease: Yes - Endocrine Hx End Stage Renal Disease: Yes (last HD 05/17/21) Hx Liver Disease: No Hx Insulin Dependent Diabetes: No Hx Non-Insulin Dependent Diabetes: No (noted in chart but patient denies. No DM meds on list.) Hx Thyroid Disease: No - Hematic Hx Anemia: Yes - Other Systems Hx Obesity: No - Additional Comments Anesthesia Medical History Comments: Per son, no hx anesthetic complications. Will give usual morning doses depakote and midodrine in preop.
--- NOTE | 2021-05-18 07:49 | Anesthesia Day of Surgery ---
Anesthesia Day of Surgery - Day of Surgery Patient Examined: Yes Patient H&P Reviewed: Yes Patient is NPO: Yes
[2021-05-18] MEDS ORDERED: DIVALPROEX DR 500 MG TAB PO ONE (07:50)
[2021-05-18] MEDS ORDERED: BUPIVACAINE/PF (0.25%) 2.5 MG/ML 30 ML VIAL INFILTRATI ONE (07:59)
[2021-05-18] MEDS ORDERED: DIVALPROEX DR 500 MG TAB PO SCH (08:00)
[2021-05-18] MEDS ORDERED: DIVALPROEX DR 250 MG TAB PO SCH (08:00)
[2021-05-18] MEDS ORDERED: DEXTROSE 50% IN WATER (25GM) 50 ML SYRINGE IV SCH (08:00)
[2021-05-18] MEDS ORDERED: MIDODRINE 5 MG TAB PO SCH (08:00)
[2021-05-18 08:13] LABS: Calcium 9.7 mg/dL (8.4-10.2)
--- NOTE | 2021-05-18 09:04 | Short Stay Summary ---
Short Stay Documentation Date of service: 05/18/21 Narrative H&P: The patient is a 65-year-old female with a history of end-stage renal disease who has had a previous creation of a left arm arteriovenous graft. The graft failed requiring placement of a left internal jugular permacath. She is in need of creation of long-term access. She had a vein mapping and during the vein mapping it was discovered that she has a pseudoaneurysm of the arterial anastomosis of her previous arteriovenous graft. It was also discovered that she has small arteries so she will require creation of the right arm loop graft followed by repair of her left arm brachial artery pseudoaneurysm during a separate operation. I have discussed this with the patient as well as her son who expressed understanding and agreed to proceed. - History Past Medical History: dialysis, ESRD, GERD, hypertension, hyperlipidemia, seizures, other (Dementia) Past Surgical History: Other (Creation of left arm arteriovenous graft, permacath insertion) - Allergies and Medications Current Medications: Allergies buspirone [From BuSpar] Allergy (Verified 04/28/21 15:16) Unknown Penicillins Allergy (Verified 02/26/21 12:38) Rash corn Adverse Reaction (Verified 02/26/21 12:38) Unknown Home Medications Medication Instructions Recorded Confirmed Last Taken Type Acetaminophen [Acetaminophen TAB] 650 mg PO Q4H PRN tablet 06/03/19 04/29/21 09/02/20 Rx LORazepam [Ativan] 1 mg PO DAILY 08/20/19 04/29/21 2 Days Ago History ~03/16/21 Memantine Xr [Namenda Xr] 5 mg PO DAILY 08/20/19 04/29/21 2 Days Ago History ~03/16/21 Midodrine [Proamatine] 10 mg PO TID 08/20/19 04/29/21 2 Days Ago History ~03/16/21 QUEtiapine [SEROquel] 400 mg PO BID 08/20/19 04/29/21 2 Days Ago History ~03/16/21 Sevelamer Carbonate [Renvela] 0.8 gram PO TIDWM 09/02/20 04/29/21 2 Days Ago History ~03/16/21 Divalproex [Depamanda Serrano] 750 mg PO BID tablet 09/13/20 04/29/21 2 Days Ago Rx ~03/16/21 Potassium Chloride [K-Dur] 10 meq PO DAILY 02/26/21 04/29/21 2 Days Ago History ~03/16/21 risperiDONE [RisperDAL] 0.5 mg PO BID 02/26/21 04/29/21 2 Days Ago History ~03/16/21 Pantoprazole [Protonix TAB] 40 mg PO DAILY 04/29/21 04/29/21 Unknown History Active Medications Dextrose (Dextrose 50% In Water (25gm) 50 Ml Syringe) 25 ml IV ONCE CONNOR; Protocol Stop: 05/18/21 17:00 Divalproex Sodium (Divalproex Dr 250 Mg Tab) 250 mg PO ONCE CONNOR Stop: 05/18/21 17:00 Divalproex Sodium (Divalproex Dr 500 Mg Tab) 500 mg PO ONCE CONNOR Stop: 05/18/21 11:00 Fentanyl (Fentanyl 100 Mcg/2 Ml Inj) 100 mcg IV ONCE PRN PRN Reason: sedation for nerve block Clindamycin HCl (Cleocin 900 Mg/50 Ml) 900 mg in 50 mls @ 100 mls/hr IV PREOP NR; Protocol Stop: 05/18/21 23:59 Sodium Chloride (Nacl 0.9% 1000 Ml) 1,000 mls @ 42 mls/hr IV DIRECT CONNOR Stop: 05/18/21 23:59 Midazolam HCl (Midazolam 2 Mg/2 Ml Inj) 2 mg IV PREOP NR Stop: 05/18/21 23:00 Midodrine (Midodrine 5 Mg Tab) 10 mg PO ONCE CONNOR Stop: 05/18/21 11:00 - Physical exam General appearance: no acute distress Lungs: Clear to auscultation Heart: Regular rate Gastrointestinal: normal Female Genitourinary: deferred Rectal Exam: deferred Extremities: abnormal (Palpable pulsatile mass near left antecubital crease) - Brief post op/procedure progress note Date of procedure: 05/18/21 Pre-op diagnosis: End-Stage Renal Disease Post-op diagnosis: same Procedure: Creation of Right Axillary Artery to Right Axillary Vein Arteriovenous Loop Graft With 5 mm Bovine Artegraft Anesthesia: GETA Findings: Palpable thrill in right arm AV graft and palpable radial pulse at the completion of the case. Surgeon: GWEN BRUCE Estimated blood loss: minimal Pathology: none Condition: stable - Disposition Condition at discharge: Good Disposition: 03 RETIREMENT FACILITY Short Stay Discharge Plan Activity: other (No heavy lifting with right arm for 2 weeks.) Wound: other (Okay to wash the right arm wounds with soap and water but do not soak in water for 2 weeks.) Follow up with: GWEN BRUCE MD [Staff Physician] - 14 Days Prescriptions: HYDROcodone/APAP 5-325 [[place] 5/325] 1 each PO Q4HR PRN #30 tablet PRN Reason: Pain
[2021-05-18] MEDS ORDERED: ONDANSETRON 4 MG/2 ML INJ ONE (09:30)
[2021-05-18] MEDS ORDERED: PHENYLEPHRINE/NS 1,000 MCG/10 ML SYRINGE (OR USE) IV ONE (09:30)
[2021-05-18] MEDS ORDERED: dexAMETHasone 20 MG/5 ML VIAL ONE (09:30)
[2021-05-18] MEDS ORDERED: HEPARIN 10,000 UNITS/10 ML VIAL IR ONE (09:59)
[2021-05-18] MEDS ORDERED: SODIUM CHLORIDE 0.9% 500 ML IVPB IRRIGATION ONE (10:00)
[2021-05-18] MEDS ORDERED: SODIUM CHLORIDE 0.9% 250 ML IVPB IR ONE (10:01)
[2021-05-18] MEDS ORDERED: rifAMPin 600 MG VIAL IV ONE (10:01)
[2021-05-18] MEDS ORDERED: SODIUM CHLORIDE 0.9% IRR 1,500 ML BOTTLE IR ONE (10:02)
--- NOTE | 2021-05-18 11:16 | Operative Report ---
Operative Report Operative Report: Date of Procedure: 05/18/2021 Pre-operative Diagnosis: End-Stage Renal Disease Post-operative Diagnosis: Same Procedure(s): 1. Creation of Right Axillary Artery to Right Axillary Vein Arteriovenous Loop Graft with 5 mm Bovine Artegraft Surgeon: Luis Caraballo M.D. [employer]: None Anesthesia: Gen. Endotracheal Anesthesia EBL: Minimal Counts: Correct Complications: None Condition: Stable Findings: Palpable thrill in right arm AV graft and palpable radial pulse at the completion of the case. Specimen: None Indication: The patient is a 65-year-old female with history of end-stage renal disease who has a failed left arm AV graft. She is in need of long-term dialysis access and requires creation of a right arm AV access. She was given the risk, benefits, and alternative procedures and consented to the procedure. Description of Procedure: The patient was brought to the operating room and laid in supine position. After general endotracheal anesthesia was achieved the right arm was prepped and draped in normal sterile fashion. A longitudinal incision was graded on the medial aspect of the arm and carried down to the axillary vein using sharp dissection. This was dissected out circumferentially and then my attention was turned to the axillary artery. The axillary artery was dissected circumferentially and controlled with 2 vessel loops. I then used a Oxana-Wick tunneler to create a tunnel and pulled the 5 mm Bovine Artegraft through the tunnel. A counterincision was created in the mid arm to assist with pulling the graft through the tunnel. I then put the vessel loops on tension to control flow in the axillary artery and created an arteriotomy using 11 blade and Mcclure scissors. I then created an end-to-side anastomosis using a 6-0 Prolene in running fashion. After completing the anastomosis and released the vessel loops allow flow into the graft which had excellent flow and then I reclamped the graft near the arterial anastomosis. I then cut the venous portion of the graft to length and beveled and then controlled the axillary vein with a Satinsky clamp. I created a anatomy using 11 blade Mcclure scissors and the greater end-to-side anastomosis using a 6-0 Prolene in running fashion. Prior to completing the anastomosis as well as the vein as well as the arterial inflow of the graft and then reclamped the graft vein and flushed venotomy with heparinized saline. I then completed the anastomosis and removed all clamps allow flow into the graft was an excellent thrill. Hemostasis was achieved with a combination of clot and direct pressure. Once hemostasis was achieved both issues were anesthetized with Marcaine and then closed in 2 layers using a 3-0 Vicryl in a running fashion the deep dermal layer and a 4-0 Monocryl in running fashion subcuticular and then dressed with Dermabond. The patient tolerated the procedure well. All sponge, needle, and instrument counts were correct. The patient was taken to recovery in stable condition.
[2021-05-18] MEDS ORDERED: ONDANSETRON 4 MG/2 ML INJ IV PRN (11:59)
[2021-05-18] MEDS ORDERED: HEPARIN 10,000 UNIT/1 ML VIAL IV ONE (13:25)
--- NOTE | 2021-05-18 13:53 | Post Anesthesia Evaluation ---
- Post Anesthesia Evaluation Patient Participated: Yes Airway Patent: Yes Stable Respiratory Function: Yes Nausea/Vomiting: No Temp > 96.8F: Yes Pain Manageable: Yes Adequeate Hydration: Yes Anesthesia Complications: No
[2021-05-18 14:25] VITALS: BP 140/72
== END 2021-05-18 14:20 ==
LOC: OR 05:59
PROVIDERS: ATTEND Surgery Vascular Surgery
DX: I12.0 Hypertensive chronic kidney disease with stage 5 chronic kidney disease or end stage renal disease (principal); N18.6 End stage renal disease; K21.9 Gastro-esophageal reflux disease without esophagitis; E87.2 Acidosis; F41.9 Anxiety disorder, unspecified; F32.9 Major depressive disorder, single episode, unspecified; Z90.710 Acquired absence of both cervix and uterus; Z98.890 Other specified postprocedural states; Z79.899 Other long term (current) drug therapy; Z88.0 Allergy status to penicillin; Z88.8 Allergy status to other drugs, medicaments and biological substances
CPT/HCPCS: 36415; 36830; 80048; 82962; 85027; C1768; J1100; J1644; J2250; J2370; J2405; J2704; J3010; J3490; J7030; J7040; J7050

== ENCOUNTER 2021-06-01 09:05 | Day surgery (SDC) | payer MEDICARE ==
[~2021-06-01 09:05] MED LIST: BUPIVACAINE/PF (0.5%) 5 MG/1 ML 30 ML VIAL INFILTRATI ONE; HEPARIN 10,000 UNITS/10 ML VIAL ONE; LIDOCAINE (1%) 10 MG/1 ML VIAL 20 ML MDV ONE; SODIUM CHLORIDE 0.9% 1000 ML 1,000 ML IV SCH; SODIUM CHLORIDE 0.9% 250ML 250 ML ONE; SODIUM CHLORIDE 0.9% 500 ML 500 ML ONE; SODIUM CHLORIDE P/F VIAL 10 ML 0 ML ONE; rifAMPin 600 MG VIAL ONE
--- NOTE | 2021-06-01 09:47 | Anesthesia Consultation ---
Anesthesia Consult and Med Hx Date of service: 06/01/21 - Airway Anesthetic Teeth Evaluation: Poor (denies loose teeth) ROM Head & Neck: Adequate Mental/Hyoid Distance: Adequate Mallampati Class: Class IV Intubation Access Assessment: Possibly Difficult (poor mouth opening on exam but report of difficult airway in multiple previous anesthetic records) - Pre-Operative Health Status ASA Pre-Surgery Classification: ASA3 Proposed Anesthetic Plan: General - Pulmonary Hx Respiratory Symptoms: No - Cardiovascular System Hx Hypertension: Yes (prior hx) Hx Heart Attack/AMI: No Hx Percutaneous Transluminal Coronary Angioplasty (PTCA): No Hx Cardia Arrhythmia: No - Central Nervous System Hx Seizures: Yes (received depakote this morning) CVA: No Hx Psychiatric Problems: Yes (dementia) - Gastrointestinal Hx Gastroesophageal Reflux Disease: Yes - Endocrine Hx End Stage Renal Disease: Yes (regular HD via permcath) Hx Liver Disease: No Hx Insulin Dependent Diabetes: No Hx Non-Insulin Dependent Diabetes: No Hx Thyroid Disease: No - Hematic Hx Anemia: Yes - Other Systems Hx Obesity: No - Additional Comments Anesthesia Medical History Comments: No hx anesthetic complications. Patient had vascular access placement surgery on 05/18/21 under [facility] without complications. Son/POA was present for that procedure and gave consent for surgery and anesthesia at that time. He has also previously given consent for surgical procedure planned for today. However, he is not present today and has been unreachable via telephone despite multiple attempts. Ms. Randolph is alert however she is not sure why she is here today. Although she does not sign her own consents, she recalls the anesthetic plan from her last surgery and is agreeable to receive general anesthesia again today.
--- NOTE | 2021-06-01 09:49 | Anesthesia Day of Surgery ---
Anesthesia Day of Surgery - Day of Surgery Patient Examined: Yes Patient H&P Reviewed: Yes Patient is NPO: Yes
[2021-06-01 10:14] LABS: Hematocrit 27.2 % (30.3-42.9); Hemoglobin 8.8 gm/dl (10.1-14.3); Mean Corpuscular HGB Conc 32 % (30-34); Mean Corpuscular Volume 83 fl (79-97); Platelet Count 285 K/mm3 (140-440); Red Blood Count 3.29 M/mm3 (3.65-5.03); Red Cell Distribution Width 16.2 % (13.2-15.2)
[2021-06-01 10:27] LABS: Calcium 9.8 mg/dL (8.4-10.2)
[2021-06-01] MEDS ORDERED: propofoL 200 MG/20 ML VIAL IV ONE (10:28)
[2021-06-01] MEDS ORDERED: fentaNYL 100 MCG/2 ML INJ ONE (10:28)
--- NOTE | 2021-06-01 10:49 | Short Stay Summary ---
Short Stay Documentation Date of service: 06/01/21 Narrative H&P: The patient is a 65-year-old female with a history of end-stage renal disease who had a previous creation of a left brachial artery to axillary vein arteriovenous graft. The graft has thrombosed however she has developed a pseudoaneurysm of the brachial anastomosis. It is unlikely that this is due to infection as it appeared that this was iatrogenic and created during a fistulogram with angioplasty of the anastomosis. Given the size of the aneurysm and the risk of embolic phenomenon she is in need of ligation of the brachial artery with a bypass using saphenous vein. Her son was given the risk, benefits, and alternative procedures and consented to the procedure. - History Past Medical History: anemia, diabetes, dialysis, ESRD, hypertension, seizures, other (Bipolar disorder, schizophrenia, dysphagia) Past Surgical History: hysterectomy, Other (Creation of a left brachial artery to axillary vein arteriovenous graft, creation of a right axillary artery to axillary vein loop graft, permacath insertion) Social history: no significant social history, other (Lives in a skilled nursing) - Allergies and Medications Current Medications: Allergies buspirone [From BuSpar] Allergy (Verified 04/28/21 15:16) Unknown Penicillins Allergy (Verified 02/26/21 12:38) Rash corn Adverse Reaction (Verified 02/26/21 12:38) Unknown Home Medications Medication Instructions Recorded Confirmed Last Taken Type Acetaminophen [Acetaminophen TAB] 650 mg PO Q4H PRN tablet 06/03/19 05/18/21 05/31/21 Rx LORazepam [Ativan] 1 mg PO DAILY 08/20/19 06/01/21 06/01/21 06:00 History Memantine Xr [Namenda Xr] 5 mg PO DAILY 08/20/19 05/18/21 05/31/21 History Midodrine [Proamatine] 10 mg PO TID 08/20/19 05/18/21 05/31/21 History QUEtiapine [SEROquel] 400 mg PO BID 08/20/19 05/18/21 05/31/21 History Sevelamer Carbonate [Renvela] 0.8 gram PO TIDWM 09/02/20 05/18/21 05/31/21 History Divalproex [Sarina Serrano] 750 mg PO BID tablet 09/13/20 06/01/21 06/01/21 06:00 Rx Potassium Chloride [K-Dur] 10 meq PO DAILY 02/26/21 05/18/21 05/31/21 History risperiDONE [RisperDAL] 0.5 mg PO BID 02/26/21 05/18/21 05/31/21 History Pantoprazole [Protonix TAB] 40 mg PO DAILY 04/29/21 05/18/21 05/31/21 History HYDROcodone/APAP 5-325 [[place] 1 each PO Q4HR PRN #30 tablet 05/18/21 Unknown Rx 5/325] Active Medications Clindamycin HCl (Cleocin 900 Mg/50 Ml) 900 mg in 50 mls @ 100 mls/hr IV PREOP NR; Protocol Stop: 06/01/21 20:00 Sodium Chloride (Nacl 0.9% 1000 Ml) 1,000 mls @ 42 mls/hr IV DIRECT CONNOR Stop: 06/01/21 23:59 Last Admin: 06/01/21 09:49 Dose: 42 mls/hr Documented by: - Physical exam General appearance: no acute distress Lungs: Normal air movement Breasts: deferred Heart: Regular rate Gastrointestinal: normal Rectal Exam: deferred Extremities: no ischemia, abnormal (Right arm AV graft has a palpable thrill and both incisions are clean, dry, and intact, left arm with prominent brachial pulse, left arm AV graft without pulse or thrill) - Brief post op/procedure progress note Date of procedure: 06/01/21 Pre-op diagnosis: Left Brachial Artery Pseudoaneurysm Post-op diagnosis: same Procedure: Excision of Left Brachial Artery Pseudoaneurysm with Ligation of the Brachial Artery And Repair with Interposition Left Reverse Great Saphenous Vein Graft Anesthesia: GETA Surgeon: GWEN BRUCE Estimated blood loss: 50-100ml Pathology: list (Left brachial artery pseudoaneurysm was sent to pathology) Condition: stable - Disposition Condition at discharge: Good Disposition: 01 HOME / SELF CARE / HOMELESS Short Stay Discharge Plan Activity: other (No heavy lifting with left arm for 2 weeks.) Wound: open to air, keep clean and dry, per your surgeon's advice (Please see cannulation orders page), other (Okay to wash the left leg and left arm wounds with soap and water but do not soak in water for 2 weeks.) Follow up with: GWEN BRUCE MD [Staff Physician] - 14 Days Prescriptions: Clopidogrel [Plavix] 75 mg PO QDAY #90 tablet
[2021-06-01] MEDS ORDERED: LIDOCAINE PF 100 MG/5 ML (CARDIAC SYRINGE) IV ONE (11:00)
[2021-06-01] MEDS ORDERED: HEPARIN 10,000 UNITS/10 ML VIAL IV ONE (11:54)
[2021-06-01] MEDS ORDERED: SODIUM CHLORIDE 0.9% IRR 1,500 ML BOTTLE IR ONE (12:50)
[2021-06-01] MEDS ORDERED: SODIUM CHLORIDE 0.9% IRR 500 ML BOTTLE IR ONE (12:50)
[2021-06-01] MEDS ORDERED: ONDANSETRON 4 MG/2 ML INJ ONE (13:55)
[2021-06-01] MEDS ORDERED: ROCURONIUM 50 MG/5 ML INJ IV ONE (14:27)
[2021-06-01] MEDS ORDERED: PHENYLEPHRINE/NS 1,000 MCG/10 ML SYRINGE (OR USE) IV ONE (14:30)
--- NOTE | 2021-06-01 14:50 | Operative Report ---
Operative Report Operative Report: Date of Procedure: 06/01/2021 Pre-operative Diagnosis: Left Brachial Artery Pseudoaneurysm Post-operative Diagnosis: Same Procedure(s): 1. Excision of Left Brachial Artery Pseudoaneurysm with Ligation of the Brachial Artery And Repair with Interposition Left Reverse Great Saphenous Vein Graft Surgeon: Luis Caraballo M.D. Abrasive Band Winder: None Anesthesia: General Endotracheal Anesthesia EBL: 100 mL Counts: Correct Complications: None Condition: Stable Findings: No evidence of infection and there was a palpable pulse distal to the distal anastomosis at the completion of the case. Specimen: Left brachial artery pseudoaneurysm was sent to pathology. Indication: The patient is a 65-year-old female with history of end-stage renal disease who had a previous creation of a left brachial artery to left axillary vein arteriovenous graft. She developed a pseudoaneurysm after a previous fistulogram with angioplasty of the arterial anastomosis. The pseudoaneurysm has continued to enlarge and there is evidence of thrombus within the pseudoaneurysm and risk of distal emboli. She is in need of ligation of the artery with repair with a vein graft due to the size of the artery and difficulty with vein patch repair. Her son has been given the risk, benefits, and alternative procedures and consented to the procedure. Description of Procedure: The patient was brought to the operating room and laid in supine position. After a timeout was performed her left arm and left leg were prepped and draped in normal sterile fashion. A longitudinal incision was created on the medial aspect of the arm and carried down to the proximal brachial artery by sharp dissection. The artery was dissected circumferentially and controlled the vessel loop. A longitudinal incision was then created just below the antecubital crease and carried down to the distal brachial artery and the bifurcation of the radial artery and ulnar artery were identified. At that time identified that the patient had a brachiocephalic arteriovenous fistula created in the anastomosis was created just proximal to the bifurcation. I decided to dissect the artery more proximal to this anastomosis so I connected the 2 incisions using a 10 blade which would also allow me to dissect the pseudoaneurysm. I dissected out the brachial artery at the level of the antecubital crease and controlled this with a vessel loop. I measured the length required for the bypass and then made a longitudinal incision in the proximal left thigh and carried this down to the cephalic vein using sharp dissection. I dissected the vein circumferentially suture-ligated and divided all side branches. Once I had adequate length I ligated the vein at the proximal and distal and and transected the vein. I prepped the vein on the back table by clamping the outflow into the vein and then infusing heparinized saline gently into the vein to identify any areas of leak. All areas of leak were oversewn with 6-0 Prolene in interrupted fashion. Once all leaks were adequately treated I prepared for the bypass. I systemically heparinized the patient with 3000 as of heparin IV and then clamped the proximal brachial artery. I ligated the vein distal to the clamp and then divided the vein. I beveled the inflow portion of the artery and then beveled the saphenous vein. I created an end-to-end anastomosis using two 6-0 Prolene's in running fashion. I then clamped the saphenous vein and removed the clamp from the brachial artery to ensure there was hemostasis. I then clamped the brachial artery just distal to my planned distal anastomosis and ligated the artery proximal to the anastomosis. I transected the artery and then dissected along the artery until I was able to dissect the pseudoaneurysm free. I continued to dissect along the pseudoaneurysm until I identified the normal portion of the artery and then ligated this and transected the artery as well as the portion of the graft that was connected to the pseudoaneurysm and passed this off as a specimen. I then cut the graft to length and beveled the distal end of the artery as well as the graft and created an end-to-end anastomosis using two 6-0 Prolene's in running fashion. Prior to completing the anastomosis I flashed the graft as well as the artery and reclamped both and then flushed the anastomosis with heparinized saline. I then completed the anastomosis and released all clamps allowing flow into the the brachial artery which had a palpable pulse distal to the graft. Hemostasis within the leg wound was achieved with cautery and direct pressure. Hemostasis within the arm wound was achieved with a combination of cautery, manual pressure, quick clot, and Lorna. Once hemostasis was achieved the wounds were anesthetized with a combination of 0.5% Marcaine and 1% lidocaine. The wounds were then closed in 2 layers using 3-0 Vicryl in running fashion the deep dermal layer and 4-0 Monocryl in running fashion in the subcuticular layer and then dressed with Dermabond. The patient tolerated the procedure well. All sponge, needle, and instrument counts were correct. The patient was taken to the recovery area in stable condition.
[2021-06-01] MEDS ORDERED: HEPARIN 10,000 UNIT/1 ML VIAL IV PRN (14:56)
[2021-06-01] MEDS ORDERED: CLOPIDOGREL 300 MG TAB PO ONE (15:00)
[2021-06-01] MEDS ORDERED: ALBUMIN HUMAN 5% (25 GM/500 ML) INJ IV ONE (15:08)
[2021-06-01] MEDS ORDERED: ALBUMIN HUMAN 25% (25 GM/100 ML) INJ IV ONE (16:00)
[2021-06-01] MEDS ORDERED: HEPARIN 10,000 UNIT/1 ML VIAL IV SCH (16:00)
[2021-06-01] MEDS ORDERED: LIDOCAINE 5% 1 EACH PATCH TD SCH (16:00)
[2021-06-01] MEDS ORDERED: MIDODRINE 5 MG TAB PO ONE (18:06)
[2021-06-01 18:12] VITALS: BP 93/42
== END 2021-06-01 17:45 | disposition home or self-care (01) ==
LOC: OR 09:05
PROVIDERS: ATTEND Surgery Vascular Surgery
DX: I12.0 Hypertensive chronic kidney disease with stage 5 chronic kidney disease or end stage renal disease (principal); N18.6 End stage renal disease; K21.9 Gastro-esophageal reflux disease without esophagitis; M19.90 Unspecified osteoarthritis, unspecified site; F41.9 Anxiety disorder, unspecified; F32.9 Major depressive disorder, single episode, unspecified; Z79.899 Other long term (current) drug therapy; Z98.890 Other specified postprocedural states; Z88.0 Allergy status to penicillin; Z88.8 Allergy status to other drugs, medicaments and biological substances
CPT/HCPCS: 36415; 36830; 80048; 82962; 85027; 86850; 86900; 86901; 88304; J1644; J2001; J2370; J2405; J2704; J3010; J7030; J7040; J7050; P9045; P9047; J3490

== ENCOUNTER 2021-06-09 12:40 | Inpatient (IN) | payer MEDICARE ==
[2021-06-09] MEDS ORDERED: SODIUM CHLORIDE 0.9% 500 ML 500 ML IV ONE (13:01)
--- NOTE | 2021-06-09 13:57 | XRay Report ---
Left knee-3 views INDICATION: knee pain. COMPARISON: None. IMPRESSION: No acute osseous abnormality. Soft tissues are normal. Normal alignment. No significa nt DJD. Signer Name: Dillon Mcfadden MD Signed: 06/09/2021 1:53 PM Workstation Name: [id number]
--- NOTE | 2021-06-09 13:57 | XRay Report ---
CHEST - 1 VIEW INDICATION: possible Sepsis COMPARISON: 02/26/2021 FINDINGS: SUPPORT DEVICES: Stable support device positioning. HEART: Stable cardiomediastinal silhouette. LUNGS/PLEURA: Small left-sided pleural effusion with underlying streaky bibasilar predominant airspa ce disease. No pneumothorax. ADDITIONAL FINDINGS: Left subclavian/axillary vascular stent noted. IMPRESSION: Lung findings as above. Signer Name: Dillon Mcfadden MD Signed: 06/09/2021 1:52 PM Workstation Name: [id number]
--- NOTE | 2021-06-09 14:13 | Emergency Department Report ---
HPI - General Chief Complaint: Fall Time Seen by Provider: 06/09/21 12:49 - HPI HPI: Room 1 Patient is a 65-year-old female present with a chief complaint of left arm swelling. The patient has surgical incision on left arm which included "excision of left brachial artery pseudoaneurysm with ligation of the brachial artery and repair with interposition of left reverse great saphenous vein graft" on 06/01/[address] Caraballo. Patient has a functioning Vas-Cath in the left chest last received dialysis 06/04/2021. The dialysis nurse reports there were conflicting stories on why the patient did not come to dialysis 2 days ago as she normally goes every Sunday. Dialysis nurse states when the patient arrived today she noticed that her left upper extremity was swollen (this is the first time she seen her since the procedure) and she was concerned that the arm was infected. There is no history of fever at hemodialysis. She states the patient has a history of dementia was at her baseline mentally. The patient complains of pain in both upper extremities. History is was obtained from dialysis nurse at [phone]. The dialysis nurse also mentioned the patient was complaining of left knee pain ED Past Medical Hx - Past Medical History Hx Hypertension: Yes (prior hx) Hx Diabetes: Yes Hx GERD: Yes Hx Arthritis: Yes (ARTHROPATHY) Hx Seizures: Yes (received depakote this morning) Hx Psychiatric Treatment: Yes (bipolar,schizophrenia,severe anxiety) Hx Dementia: Yes (LEWY BODIES) Additional medical history: HD - Surgical History Additional Surgical History: hysterectomy, right chest wall permacath - Family History Family history: no significant - Social History Smoking Status: Never Smoker Substance Use Type: None - Medications Home Medications: Home Medications Medication Instructions Recorded Confirmed Last Taken Type Acetaminophen [Acetaminophen TAB] 650 mg PO Q4H PRN tablet 06/03/19 06/09/21 05/31/21 Rx LORazepam [Ativan] 1 mg PO DAILY 08/20/19 06/09/21 06/01/21 06:00 History Memantine Xr [Namenda Xr] 5 mg PO DAILY 08/20/19 06/09/21 05/31/21 History Midodrine [Proamatine] 10 mg PO TID 08/20/19 06/09/21 05/31/21 History QUEtiapine [SEROquel] 400 mg PO BID 08/20/19 06/09/21 05/31/21 History Sevelamer Carbonate [Renvela] 0.8 gram PO TIDWM 09/02/20 06/09/21 05/31/[address] [Depakote Dr] 750 mg PO BID tablet 09/13/20 06/09/21 06/01/21 06:00 Rx Potassium Chloride [K-Dur] 10 meq PO DAILY 02/26/21 06/09/21 05/31/21 History risperiDONE [RisperDAL] 0.5 mg PO BID 02/26/21 06/09/21 05/31/21 History Pantoprazole [Protonix TAB] 40 mg PO DAILY 04/29/21 06/09/21 05/31/21 History HYDROcodone/APAP 5-325 [[place] 1 each PO Q4HR PRN #30 tablet 05/18/21 06/09/21 Unknown Rx 5-325 mg TAB] Clopidogrel [Plavix] 75 mg PO QDAY #90 tablet 06/01/21 06/09/21 Unknown Rx ED Review of Systems ROS: Stated complaint: SEPIC Other details as noted in HPI Constitutional: denies: fever Respiratory: no symptoms reported Endocrine: no symptoms reported Physical Exam - Physical Exam Vital Signs: Vital Signs 06/09/21 06/09/21 06/09/21 12:46 12:51 13:48 Temperature 97.7 F 97.7 F Pulse Rate 75 Respiratory 17 18 Rate Blood Pressure 131/58 [Right] O2 Sat by Pulse 99 95 Oximetry Physical Exam: GENERAL: The patient is well-developed well-nourished female lying on stretcher not appearing to be in acute distress. [] HEENT: Normocephalic. Atraumatic. Extraocular motions are intact. Patient has moist mucous membranes. NECK: Supple. Trachea midline CHEST/LUNGS: Clear to auscultation. There is no respiratory distress noted. HEART/CARDIOVASCULAR: Regular. There is no tachycardia. There is no gallop rub or murmur. ABDOMEN: Abdomen is soft, nontender. Patient has normal bowel sounds. There is no abdominal distention. SKIN: There is swelling to bilateral upper extremities surgical sites. Surgical sites are very tender to palpation. Possible evidence of dried discharge on left upper extremity surgical site. No definite rubor appreciated. No active drainage seen. NEURO: The patient is awake, alert, and oriented. The patient is cooperative. The patient has no focal neurologic deficits. The patient has normal speech. GCS 15 MUSCULOSKELETAL: There is no tenderness or deformity. There is no limitation range of motion. There is no evidence of acute injury. ED Course Vital Signs 06/09/21 06/09/21 06/09/21 12:46 12:51 13:48 Temperature 97.7 F 97.7 F Pulse Rate 75 Respiratory 17 18 Rate Blood Pressure 131/58 [Right] O2 Sat by Pulse 99 95 Oximetry - Reevaluation(s) Reevaluation #1: 06/09/21 18:21 Patient states she does not wish to receive a blood transfusion because she was told by her physician that she should not - Consultations Consultation #1: 06/09/21 14:09 Case discussed with vascular surgery nurse-we will contact Dr. Sharif to have him come evaluate patient. 06/09/21 14:26 Case discussed briefly with vascular surgeon Dr. Trevizo- recommends arterial venous duplex of the left upper extremity. Consultation #2: 06/09/21 16:06 Nephrology paged 06/09/21 16:[address] Louis- treat medically for now will arrange for hemodialysis. Okay to administer Kayexalate 45 g ED Medical Decision Making - Lab Data Result diagrams: 06/09/21 17:29 06/09/21 13:53 Laboratory Tests 06/09/21 06/09/21 06/09/21 13:53 17:10 17:29 WBC 5.2 RBC 2.19 L Hgb 6.1 L Hct 19.0 L* MCV 87 MCH 28 MCHC 32 RDW 20.1 H Plt Count 322 Lymph % (Auto) 26.8 [place] % (Auto) 8.1 H Eos % (Auto) 12.6 H Baso % (Auto) 1.0 Lymph # (Auto) 1.4 [place] # (Auto) 0.4 Eos # (Auto) 0.6 H Baso # (Auto) 0.0 Seg Neutrophils % 51.5 Seg Neutrophils # 2.7 PT INR VBG pH Sodium 138 Potassium 5.7 H Chloride 107.2 H Carbon Dioxide 17 L Anion Gap 20 BUN 52 H Creatinine 6.2 H Estimated GFR 8 BUN/Creatinine Ratio 8 Glucose 146 H POC Glucose 90 Lactic Acid Calcium 8.8 Total Bilirubin 0.20 AST 11 ALT < 5 L Alkaline Phosphatase 81 Total Protein 6.2 L Albumin 3.2 L Albumin/Globulin Ratio 1.1 06/09/21 06/09/21 06/09/21 17:29 17:29 17:29 WBC RBC Hgb Hct MCV MCH MCHC RDW Plt Count Lymph % (Auto) [place] % (Auto) Eos % (Auto) Baso % (Auto) Lymph # (Auto) [place] # (Auto) Eos # (Auto) Baso # (Auto) Seg Neutrophils % Seg Neutrophils # PT 13.0 INR 0.92 VBG pH 7.276 L Sodium Potassium Chloride Carbon Dioxide Anion Gap BUN Creatinine Estimated GFR BUN/Creatinine Ratio Glucose POC Glucose Lactic Acid 0.90 Calcium Total Bilirubin AST ALT Alkaline Phosphatase Total Protein Albumin Albumin/Globulin Ratio - Radiology Data Radiology results: pending (Left upper extremity arterial and venous duplex), report reviewed (Chest x-ray, knee x-ray), image reviewed (Chest x-ray, knee x- ray) interpreted by me: Chest x-ray-left lower lobe atelectasis. No pneumothorax Left knee x-ray-no acute fracture [facility] [address] [place] [address] XRay Report Signed Patient: LUIS M PATEL MR#: [id number] : 1955 Acct:[id number] Age/Sex: 65 / F ADM Date: 06/09/21 Loc: ED Attending Dr: Ordering Physician: HERSON MCKOY MD Date of Service: 06/09/21 Proc edure(s): XR chest 1V ap Accession Number(s): [id number] cc: HERSON MCKOY MD Fluoro Time In Minutes: CHEST - 1 VIEW INDICATION: possible Sepsis COMPARISON: 02/26/2021 FINDINGS: SUPPORT DEVICES: Stable support device positioning. HEART: Stable cardiomediastinal silhouette. LUNGS/PLEURA: Small left-sided pleural effusion with underlying streaky bibasilar predominant airspace disease. No pneumothorax. ADDITIONAL FINDINGS: Left subclavian/axillary vascular stent noted. IMPRESSION: Lung findings as above. Signer Name: Dillon Mcfadden MD Signed: 06/09/2021 1:52 PM Workstation Name: [id number] Transcribed By: BRYANT Dictated By: Dillon Mcfadden MD Electronically Authenticated By: Dillon Mcfadden MD Signed Date/Time: 06/09/21 135 DD/ 51 TD/TT: Print Cancel [facility] [address] [place] [address] XRay Report Signed Patient: LUIS M PATEL MR#: [id number] : 1955 Acct:[id number] Age/Sex: 65 / F ADM Date: 06/09/21 Loc: ED Attending Dr: Ordering Physician: HERSON MCKOY MD Date of Service: 06/09/21 Procedure(s): XR knee 3V LT Accession Number(s): [id number] cc: HERSON MCKOY MD Fluoro Time In Minutes: Left knee-3 views INDICATION: knee pain. COMPARISON: None. IMPRESSION: No acute osseous abnormality. Soft tissues are normal. Normal alignment. No significant DJD. Signer Name: Dillon Mcfadden MD Signed: 06/09/2021 1:53 PM Workstation Name: [id number] Transcribed By: BRYANT Dictated By: Dillon Mcfadden MD Electronically Authenticated By: Dillon Mcfadden MD Signed Date/Time: 06/09/211352 DD/ 51 TD/TT: Print Cancel - Differential Diagnosis Postop pain, postop infection, hyperkalemia Critical care attestation.: If time is entered above; I have spent that time in minutes in the direct care of this critically ill patient, excluding procedure time. ED Disposition Clinical Impression: ESRD (end stage renal disease), Hyperkalemia, Postoperative pain, Anemia Disposition: ADMITTED INPATIENT Is pt being admited?: Yes Does the pt Need Aspirin: No Condition: Fair Referrals: PRIMARY CARE, [Primary Care Provider] - 3-5 Days Time of Disposition: 19:07 (Hospitalist notified (Dr. Barakat))
[2021-06-09 14:35] LABS: Albumin 3.2 g/dL (3.9-5); Blood Urea Nitrogen 52 mg/dL (7-17); Calcium 8.8 mg/dL (8.4-10.2); Hemolysis Index 38
[2021-06-09 14:54] LABS: Alanine Aminotransferase < 5 units/L (7-56); BUN/Creatinine Ratio 8
[2021-06-09] MEDS ORDERED: CALCIUM GLUCONATE 1,000 MG in SODIUM CHLORIDE 0.9% 100 ML IV ONE (16:30)
[2021-06-09] MEDS ORDERED: SODIUM POLYSTYRENE 15 GM/60 ML ORAL LIQD PO ONE (16:34)
[2021-06-09] MEDS ORDERED: DEXTROSE 50% IN WATER (25GM) 50 ML SYRINGE IV ONE (16:36)
[2021-06-09] MEDS ORDERED: INSULIN REGULAR, HUMAN 100 UNITS/1 ML IV ONE (16:36)
[2021-06-09] MEDS ORDERED: SODIUM CHLORIDE 0.9% 100 ML IV PRN ×2 (16:40→17:05)
[2021-06-09 17:38] LABS: Eosinophils # (Auto) 0.6 K/mm3 (0.0-0.4); Eosinophils % (Auto) 12.6 % (0.0-4.3); Hemoglobin 6.1 gm/dl (10.1-14.3); Lymphocytes # (Auto) 1.4 K/mm3 (1.2-5.4); Lymphocytes % (Auto) 26.8 % (13.4-35.0); Mean Corpuscular HGB Conc 32 % (30-34); Mean Corpuscular Volume 87 fl (79-97); Monocytes # (Auto) 0.4 K/mm3 (0.0-0.8); Monocytes % (Auto) 8.1 % (0.0-7.3); Platelet Count 322 K/mm3 (140-440); Red Blood Count 2.19 M/mm3 (3.65-5.03)
[2021-06-09 17:47] LABS: INR 0.92 (0.87-1.13)
[2021-06-09 18:09] LABS: Red Cell Distribution Width 20.1 % (13.2-15.2)
[2021-06-09] MEDS: SODIUM BICARBONATE 650 MG TAB PO SCH (20:33)
--- NOTE | 2021-06-09 21:43 | History and Physical Report ---
History of Present Illness Date of examination: 06/09/21 Date of admission: 06/09/21 19:08 Chief complaint: Left upper extremity swelling after AV access creation History of present illness: 65-year-old female comes in with left upper extremity swelling. Patient had excision of left brachial artery pseudoaneurysm with ligation of the brachial artery and repair with interposition of left reverse graft great saphenous vein graft on 06/01/2021. Patient also had a Vas-Cath placed on the left side of the chest. Patient did not go to dialysis on Sunday. As per the dialysis nurse left upper extremity was swollen and she was concerned that the arm was infected. No history of fever. Left upper extremity is not warm to touch. Patient has mild dementia. No fever or chills. Some pain present in the left upper extremity. No chest pain no shortness of breath. No exacerbating or relieving factors. - Past Medical History --Hypertension: Yes (prior hx) --Diabetes: Yes --GERD: Yes --Arthritis: Yes (ARTHROPATHY) --Seizures: Yes (received depakote this morning) --Psychiatric Treatment: Yes (bipolar,schizophrenia,severe anxiety) --Dementia: Yes (LEWY BODIES) --Additional medical history: HD - Surgical History --Additional Surgical History: hysterectomy, right chest wall permacath - Family History --Family history: no significant - Social History --Smoking Status: Never Smoker --Substance Use Type: None Review of Systems ROS: Constitutional no weight loss or weight gain no fever or chills HEENT no sore throat no post nasal drip no diplopia Neck no neck stiffness no lymph gland enlargement Chest and lungs no shortness of breath cough or wheezing CVS no chest pain no diaphoresis no palpitations GI no nausea no vomiting no diarrhea Genitourinary system no dysuria no flank pain Musculoskeletal system left upper extremity swollen and warm to touch, pulses well felt [employer] no syncope no seizures Skin no rash no itching Psychiatric no depression no homicidal or suicidal tendencies Hematologic no lymphedema or bruising Endocrine no polydipsia no polyuria no cold intolerance no heat intolerance Medications and Allergies Allergies Allergy/AdvReac Type Severity Reaction Status Date / Time buspirone [From BuSpar] Allergy Unknown Verified 04/28/21 15:16 Penicillins Allergy Rash Verified 02/26/21 12:38 corn AdvReac Unknown Verified 02/26/21 12:38 Home Medications Medication Instructions Recorded Confirmed Last Taken Type Acetaminophen [Acetaminophen TAB] 650 mg PO Q4H PRN tablet 06/03/19 06/09/21 05/31/21 Rx LORazepam [Ativan] 1 mg PO DAILY 08/20/19 06/09/21 06/01/21 06:00 History Memantine Xr [Namenda Xr] 5 mg PO DAILY 08/20/19 06/09/21 05/31/21 History Midodrine [Proamatine] 10 mg PO TID 08/20/19 06/09/21 05/31/21 History QUEtiapine [SEROquel] 400 mg PO BID 08/20/19 06/09/21 05/31/21 History Sevelamer Carbonate [Renvela] 0.8 gram PO TIDWM 09/02/20 06/09/21 05/31/[address] [Depakote Dr] 750 mg PO BID tablet 09/13/20 06/09/21 06/01/21 06:00 Rx Potassium Chloride [K-Dur] 10 meq PO DAILY 02/26/21 06/09/21 05/31/21 History risperiDONE [RisperDAL] 0.5 mg PO BID 02/26/21 06/09/21 05/31/21 History Pantoprazole [Protonix TAB] 40 mg PO DAILY 04/29/21 06/09/21 05/31/21 History HYDROcodone/APAP 5-325 [[place] 1 each PO Q4HR PRN #30 tablet 05/18/21 06/09/21 Unknown Rx 5-325 mg TAB] Clopidogrel [Plavix] 75 mg PO QDAY #90 tablet 06/01/21 06/09/21 Unknown Rx Active Meds: Active Medications Sodium Chloride (Nacl 0.9%) 100 mls @ 999 mls/hr IV BIANCA PRN PRN Reason: Hypotension Sodium Chloride (Nacl 0.9%) 100 mls @ 999 mls/hr IV BIANCA PRN PRN Reason: Hypotension Sodium Bicarbonate (Sodium Bicarbonate 650 Mg Tab) 1,300 mg PO TID [facility] Last Admin: 06/09/21 20:33 Dose: 1,300 mg Documented by: Exam - Constitutional Vitals: Temp Pulse Resp BP Pulse Ox 97.7 F 79 10 L 153/81 96 06/09/21 12:51 06/09/21 20:45 06/09/21 20:45 06/09/21 20:45 06/09/21 20:52 General appearance: Present: no acute distress, well-nourished - EENT Eyes: Present: PERRL ENT: hearing intact, clear oral mucosa - Neck Neck: Present: supple, normal ROM - Respiratory Respiratory effort: normal Respiratory: bilateral: CTA - Cardiovascular Heart rate: 78 Rhythm: regular Heart Sounds: Present: S1 & S2. Absent: rub, click - Extremities Extremities: pulses symmetrical, No edema, abnormal (Left upper extremity swollen, no signs of cellulitis, pulses well felt) Peripheral Pulses: within normal limits - Abdominal General gastrointestinal: Present: soft, non-tender, non-distended, normal bowel sounds Female genitourinary: Present: normal - Integumentary Integumentary: Present: clear, warm, dry - Musculoskeletal Musculoskeletal: gait normal, strength equal bilaterally - Psychiatric Psychiatric: appropriate mood/affect, intact judgment & insight - Neurologic Neurologic: CNII-XII intact, moves all extremities HEART Score - HEART Score History: Slightly suspicious Results - Labs CBC & Chem 7: 06/09/21 17:29 06/09/21 13:53 Labs: Laboratory Last Values WBC 5.2 K/mm3 (4.5-11.0) 06/09/21 17:29 RBC 2.19 M/mm3 (3.65-5.03) L 06/09/21 17:29 Hgb 6.1 gm/dl (10.1-14.3) L 06/09/21 17:29 Hct 19.0 % (30.3-42.9) L* 06/09/21 17:29 MCV 87 fl (79-97) 06/09/21 17:29 MCH 28 pg (28-32) 06/09/21 17:29 MCHC 32 % (30-34) 06/09/21 17:29 RDW 20.1 % (13.2-15.2) H 06/09/21 17:29 Plt Count 322 K/mm3 (140-440) 06/09/21 17:29 Lymph % (Auto) 26.8 % (13.4-35.0) 06/09/21 17:29 [place] % (Auto) 8.1 % (0.0-7.3) H 06/09/21 17:29 Eos % (Auto) 12.6 % (0.0-4.3) H 06/09/21 17:29 Baso % (Auto) 1.0 % (0.0-1.8) 06/09/21 17:29 Lymph # (Auto) 1.4 K/mm3 (1.2-5.4) 06/09/21 17: [place] # (Auto) 0.4 K/mm3 (0.0-0.8) 06/09/21 17: Eos # (Auto) 0.6 K/mm3 (0.0-0.4) H 06/09/21 17: Baso # (Auto) 0.0 K/mm3 (0.0-0.1) 06/09/21 17: Seg Neutrophils % 51.5 % (40.0-70.0) 06/09/21 17: Seg Neutrophils # 2.7 K/mm3 (1.8-7.7) 06/09/21 17:29 PT 13.0 Sec. (12.2-14.9) 06/09/21 17: INR 0.92 (0.87-1.13) 06/09/21 17:29 VBG pH 7.276 (7.320-7.420) L 06/09/21 17:29 Sodium 138 mmol/L (137-145) 06/09/21 13:53 Potassium 5.7 mmol/L (3.6-5.0) H 06/09/21 13:53 Chloride 107.2 mmol/L (98-107) H 06/09/21 13:53 Carbon Dioxide 17 mmol/L (22-30) L 06/09/21 13:53 Anion Gap 20 mmol/L 06/09/21 13:53 BUN 52 mg/dL (7-17) H 06/09/21 13:53 Creatinine 6.2 mg/dL (0.6-1.2) H 06/09/21 13:53 Estimated GFR 8 ml/min 06/09/21 13:53 BUN/Creatinine Ratio 8 % 06/09/21 13:53 Glucose 146 mg/dL (65-100) H 06/09/21 13:53 POC Glucose 90 mg/dL (70-105) 06/09/21 17:10 Lactic Acid 0.90 mmol/L (0.7-2.0) 06/09/21 17:29 Calcium 8.8 mg/dL (8.4-10.2) 06/09/21 13:53 Total Bilirubin 0.20 mg/dL (0.1-1.2) 06/09/21 13:53 AST 11 units/L (5-40) 06/09/21 13:53 ALT < 5 units/L (7-56) L 06/09/21 13:53 Alkaline Phosphatase 81 units/L (35-129) 06/09/21 13:53 Total Protein 6.2 g/dL (6.3-8.2) L 06/09/21 13:53 Albumin 3.2 g/dL (3.9-5) L 06/09/21 13:53 Albumin/Globulin Ratio 1.1 % 06/09/21 13:53 Microbiology: Microbiology 06/09/21 13:53 Peripheral/Venous Blood Culture - Preliminary Culture in Progress 06/09/21 13:53 Peripheral/Venous Blood Culture - Preliminary Culture in Progress - Imaging and Cardiology Chest x-ray: report reviewed Imaging and Cardiology: Chest x-ray Small left-sided pleural effusion with underlying streaky bibasilar predominant airspace disease Left subclavian/axillary vascular stent noted Left knee x-ray No acute findings Assessment and Plan Advance Directives: Yes (Full code) VTE prophylaxis?: Chemical Plan of care discussed with patient/family: Yes - Patient Problems (1) Dialysis AV fistula malfunction Current Visit: Yes Status: Acute Qualifiers: Encounter type: initial encounter Qualified Code(s): T82.590A - Other m echanical complication of surgically created arteriovenous fistula, initial encounter Plan to address problem: Patient had recent surgery on May 2015 Postop left arm swollen Patient had pseudoaneurysm of the brachial artery removed Continues to have swelling of the left upper extremity and pain No signs of infection Patient started on empiric Unasyn but may discontinue in the next 24 to 48 hours (2) Symptomatic anemia Current Visit: Yes Status: Acute Plan to address problem: Transfuse 1 unit of packed red blood cells Possible perioperative blood loss (3) ESRD (end stage renal disease) on dialysis Current Visit: No Status: Chronic Plan to address problem: Continue hemodialysis Nephrology consulted (4) Hypotension Current Visit: Yes Status: Chronic Qualifiers: Hypotension type: unspecified hypotension type Qualified Code(s): I95.9 - Hypotension, unspecified Plan to address problem: Patient on midodrine (5) T2DM (type 2 diabetes mellitus) Current Visit: Yes Status: Chronic Qualifiers: Diabetes mellitus fdc insulin use: unspecified 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
[2021-06-09 23:34] LABS: Bilirubin,Urine NEG (Negative); Blood,Urine NEG (Negative); Color,Urine Yellow (Yellow); Mucus,Urine FEW /HPF; Urobilinogen,Urine < 2.0 mg/dL (<2.0)
[2021-06-10] MEDS ORDERED: ACETAMINOPHEN 325 MG TAB PO PRN ×2 (00:09→00:12)
[2021-06-10] MEDS ORDERED: LORazepam 1 MG TAB PO PRN (00:09)
[2021-06-10] MEDS ORDERED: ONDANSETRON 4 MG/2 ML INJ IV PRN (00:12)
[2021-06-10] MEDS ORDERED: HYDROmorphone 1 MG/1 ML INJ IV PRN (00:12)
[2021-06-10] MEDS ORDERED: METOCLOPRAMIDE 10 MG/2 ML INJ IV PRN ×2 (00:12→00:30)
[2021-06-10] MEDS ORDERED: oxyCODONE /ACETAMINOPHEN 5-325MG TAB PO PRN (00:12)
[2021-06-10] MEDS ORDERED: AMPICILLIN/SULBACTA 1.5GM/50ML 1.5 GM/50 ML BAG IV SCH (01:00)
[2021-06-10 06:31] LABS: Hemoglobin 6.2 gm/dl (10.1-14.3); Mean Corpuscular HGB Conc 32 % (30-34); Mean Corpuscular Volume 87 fl (79-97); Platelet Count 272 K/mm3 (140-440); Red Blood Count 2.27 M/mm3 (3.65-5.03)
[2021-06-10 06:38] LABS: Hematocrit 19.6 % (30.3-42.9); Red Cell Distribution Width 20.6 % (13.2-15.2)
[2021-06-10 06:41] LABS: Hepatitis C Virus Antibody Non-Reactive (NonReactive)
[2021-06-10 06:45] LABS: Hepatitis B Surface Antigen Nonreactive (Negative)
[2021-06-10] MEDS ORDERED: SODIUM CHLORIDE 0.9% 500 ML 500 ML IV NR (08:00)
--- NOTE | 2021-06-10 08:49 | Electrocardiograph Report ---
[facility] Test Date: 2021-06-09 Test Time: 16:00:13 Pat Name: LUIS M PATEL Department: Room: [place] [address] Gender: F Brewer Helper: MARLEN : 1955 Requested By: HERSON MCKOY Order Number: [id number] Reading MD: Jose Garcia Measurements Intervals [place] Rate: 78 P: 42 TN: 156 QRS: 22 QRSD: 105 T: 11 QT: 430 QTc: 489 Interpretive Statements Sinus rhythm baseline artifact Compared to ECG 02/26/2021 13:47:25 T-wave abnormality no longer present Electronically Signed On 06-10-2021 8:49:18 EDT by Jose Garcia
[2021-06-10] MEDS: SODIUM BICARBONATE 650 MG TAB PO SCH ×2 (09:03→13:54)
[2021-06-10] MEDS: SEVELAMER CARBONATE 800 MG TAB PO SCH ×3 (09:03→17:14)
[2021-06-10] MEDS: MIDODRINE 5 MG TAB PO SCH ×2 (09:03→13:54)
[2021-06-10 09:13] LABS: Blood Urea Nitrogen 58 mg/dL (7-17); Calcium 8.9 mg/dL (8.4-10.2); Hemolysis Index 243
[2021-06-10 09:18] LABS: BUN/Creatinine Ratio 10
[2021-06-10] MEDS: MEMANTINE 5 MG TAB PO SCH (09:44)
[2021-06-10] MEDS: DIVALPROEX DR 250 MG TAB PO SCH (09:44)
[2021-06-10] MEDS: PANTOPRAZOLE 40 MG TAB PO SCH (09:45)
[2021-06-10] MEDS: risperiDONE 0.25 MG TAB PO SCH (09:45)
[2021-06-10] MEDS: CLOPIDOGREL 75 MG TAB PO SCH (09:45)
[2021-06-10] MEDS ORDERED: NON-FORMULARY EACH (Risperidone [Risperdal] 0.5 MG Tablet) PO SCH (10:00)
[2021-06-10] MEDS ORDERED: POTASSIUM CHLORIDE ER 10 MEQ TAB PO SCH (10:00)
[2021-06-10] MEDS ORDERED: FAMOTIDINE 10 MG TAB PO SCH (10:00)
[2021-06-10] MEDS ORDERED: MEMANTINE 7 MG PO SCH (10:00)
--- NOTE | 2021-06-10 13:31 | Progress Note ---
Assessment and Plan Assessment and plan: #Dialysis AV fistula malfunction #ESRD on dialysis #Possible surgical site infection - recent surgical procedure May 2015 with residual swelling of postoperative swelling - recent pseudoaneurysm of brachial artery removed; however, patient continues to have LUE pain and swelling - s/p Doppler of LUE to assess for possible abscess or hematoma - Continue Unasyn while pending Doppler read. If vitals remain stable and Dopplers negative for abscess and/or hematoma, Unasyn can be discontinued tomorrow. -Nephrology consulted. Appreciate recs. Patient refused dialysis #Hypotension -Blood pressure has resolved after administration of on midodrine #Symptomatic anemia -Hemoglobin 6.2 (baseline unknown -Likely secondary to anemia of chronic disease -Patient refuses transfusion of blood; however patient lacks capacity to make such decisions. Hemodialysis is being held due to the lack of emergent need and concern for patient physically removing dialysis access in an attempt to stop transfusion. Need for transfusion will be assessed on a daily basis. There is no mention of patient being a Oriental orthodox within the chart, and patient does not admit to herself being a Oriental orthodox. #Insulin-dependent type 2 diabetes mellitus -Pending hemoglobin A1c -We will monitor with SSI until patient requires basal insulin #Seizure disorder #Bipolar disorder (type unknown) #Schizophrenia -Patient records reveal Depakote administration at home. We will continue same regimen -Patient endorses being diagnosed with bipolar disorder and schizophrenia; however, no medications have been identified. Concern is that patient has been off of psychiatric medications for an extended period of time. -Consult placed for geriatric psych; pending recs -Current psychiatric state is affecting medical management. Patient will be monitored closely to ensure appropriate management can be administered in a timely fashion. #DVT prophylaxis -Continue subcutaneous heparin 5000 units every 8 Disposition Plan: Pending [facility]azmin-Psych consult. History Interval history: No acute events overnight. Hospitalist Physical - Constitutional Vitals: Temp Pulse Resp BP Pulse Ox 97.7 F 89 16 143/75 97 06/09/21 12:51 06/10/21 13:07 06/10/21 13:07 06/10/21 13:07 06/10/21 13:07 General appearance: Present: mild distress, well-nourished - EENT Eyes: Present: PERRL, EOM intact ENT: hearing intact, clear oral mucosa, dentition normal - Neck Neck: Present: supple, normal ROM Details: EJ in left neck - Respiratory Respiratory effort: normal - Cardiovascular Rhythm: regular Heart Sounds: Present: S1 & S2 - Extremities Extremities: pulses intact, pulses symmetrical, No edema, normal temperature Extremity abnormal: ulceration (Please refer to description listed below), tend erness (Tenderness on bilateral) Peripheral Pulses: within normal limits - Abdominal General gastrointestinal: soft, non-tender, non-distended, normal bowel sounds - Integumentary Integumentary: Present: clear (Incision along the medial upper extremities extending from axilla to mid upper arm with intact stitches. Significant tenderness and dried blood along the incision. Left incision associated with moderate edema and erythema with crusting of skin.), warm, dry - Psychiatric Psychiatric: agitated (Extremely combative and yelling) - Neurologic Neurologic: CNII-XII intact, moves all extremities, other (Alert and oriented x2 (unable to give correct year)) - Allied Health Allied health notes reviewed: nursing HEART Score - HEART Score History: Slightly suspicious EKG: Non-specific Age: > 65 Risk factors: 1-2 risk factors - Critical Actions Critical Actions: 0-3 pts:0.9-1.7%risk of adverse cardiac event.Candidate for discharge Results - Labs CBC & Chem 7: 06/10/21 05:53 06/10/21 08:48 Labs: Laboratory Last Values WBC 5.8 K/mm3 (4.5-11.0) 06/10/21 05:53 RBC 2.27 M/mm3 (3.65-5.03) L 06/10/21 05:53 Hgb 6.2 gm/dl (10.1-14.3) L 06/10/21 05:53 Hct 19.6 % (30.3-42.9) L* 06/10/21 05:53 MCV 87 fl (79-97) 06/10/21 05:53 MCH 27 pg (28-32) L 06/10/21 05:53 MCHC 32 % (30-34) 06/10/21 05:53 RDW 20.6 % (13.2-15.2) H 06/10/21 05:53 Plt Count 272 K/mm3 (140-440) 06/10/21 05:53 Lymph % (Auto) 26.8 % (13.4-35.0) 06/09/21 17:29 [place] % (Auto) 8.1 % (0.0-7.3) H 06/09/21 17:29 Eos % (Auto) 12.6 % (0.0-4.3) H 06/09/21 17:29 Baso % (Auto) 1.0 % (0.0-1.8) 06/09/21 17:29 Lymph # (Auto) 1.4 K/mm3 (1.2-5.4) 06/09/21 17:29 [place] # (Auto) 0.4 K/mm3 (0.0-0.8) 06/09/21 17: Eos # (Auto) 0.6 K/mm3 (0.0-0.4) H 06/09/21 17:29 Baso # (Auto) 0.0 K/mm3 (0.0-0.1) 06/09/21 17: Seg Neutrophils % 51.5 % (40.0-70.0) 06/09/21 17: Seg Neutrophils # 2.7 K/mm3 (1.8-7.7) 06/09/21 17:29 PT 13.0 Sec. (12.2-14.9) 06/09/21 17: INR 0.92 (0.87-1.13) 06/09/21 17:29 VBG pH 7.276 (7.320-7.420) L 06/09/21 17:29 Sodium 137 mmol/L (137-145) 06/10/21 08:48 Potassium TNR 06/10/21 08:48 Chloride 108.4 mmol/L (98-107) H 06/10/21 08:48 Carbon Dioxide 17 mmol/L (22-30) L 06/10/21 08:48 Anion Gap 20 mmol/L 06/10/21 08:48 BUN 58 mg/dL (7-17) H 06/10/21 08:48 Creatinine 5.9 mg/dL (0.6-1.2) H 06/10/21 08:48 Estimated GFR 9 ml/min 06/10/21 08:48 BUN/Creatinine Ratio 10 % 06/10/21 08:48 Glucose 85 mg/dL (65-100) 06/10/21 08:48 POC Glucose 90 mg/dL (70-105) 06/09/21 17:10 Lactic Acid 0.90 mmol/L (0.7-2.0) 06/09/21 17:29 Calcium 8.9 mg/dL (8.4-10.2) 06/10/21 08:48 Total Bilirubin 0.20 mg/dL (0.1-1.2) 06/09/21 13:53 AST 11 units/L (5-40) 06/09/21 13:53 ALT < 5 units/L (7-56) L 06/09/21 13:53 Alkaline Phosphatase 81 units/L (35-129) 06/09/21 13:53 Total Protein 6.2 g/dL (6.3-8.2) L 06/09/21 13:53 Albumin 3.2 g/dL (3.9-5) L 06/09/21 13:53 Albumin/Globulin Ratio 1.1 % 06/09/21 13:53 Urine Color Yellow (Yellow) 06/09/21 17:33 Urine Turbidity Clear (Clear) 06/09/21 17:33 Urine pH 5.0 (5.0-7.0) 06/09/21 17:33 Ur Specific [place] 1.012 (1.003-1.030) 06/09/21 17:33 Urine Protein 30 mg/dl mg/dL (Negative) 06/09/21 17:33 Urine Glucose (UA) Neg mg/dL (Negative) 06/09/21 17:33 Urine Ketones Neg mg/dL (Negative) 06/09/21 17:33 Urine Blood Neg (Negative) 06/09/21 17:33 Urine Nitrite Neg (Negative) 06/09/21 17:33 Urine Bilirubin Neg (Negative) 06/09/21 17:33 Urine Urobilinogen < 2.0 mg/dL (<2.0) 06/09/21 17:33 Ur Leukocyte Esterase Neg (Negative) 06/09/21 17:33 Urine WBC (Auto) 3.0 /HPF (0.0-6.0) 06/09/21 17:33 Urine RBC (Auto) 2.0 /HPF (0.0-6.0) 06/09/21 17:33 Urine Mucus Few /HPF 06/09/21 17:33 Hepatitis A IgM Ab Non-reactive (NonReactive) 06/10/21 05:53 Hep Bs Antigen Nonreactive (Negative) 06/10/21 05:53 Hep B Core IgM Ab Non-reactive (NonReactive) 06/10/21 05:53 Hepatitis C Antibody Non-reactive (NonReactive) 06/10/21 05:53 Blood Type A POSITIVE 06/10/21 08:48 Antibody Screen Negative 06/10/21 08:48 Crossmatch See Detail 06/10/21 07:30 Microbiology: Microbiology 06/09/21 13:53 Peripheral/Venous Blood Culture - Preliminary Culture in Progress 06/09/21 13:53 Peripheral/Venous Blood Culture - Preliminary Culture in Progress Active Medications - Current Medications Current Medications: Generic Name Dose Route Start Last Admin Trade Name Freq PRN Reason Stop Dose Admin Acetaminophen 650 mg 06/10/21 00:09 Acetaminophen 325 Mg Tab PO Q4H PRN Pain MILD(1-3)/Fever >100.5/DRAKE Clopidogrel Bisulfate 75 mg 06/10/21 10:00 06/10/21 09:45 Clopidogrel 75 Mg Tab PO Not Given QDAY CONNOR Divalproex Sodium 750 mg 06/10/21 10:00 06/10/21 09:[address] 250 Mg Tab PO Not Given BID CONNOR Hydromorphone HCl 0.5 mg 06/10/21 00:12 Hydromorphone 1 Mg/1 Ml Inj IV Q3H PRN Pain , Severe (7-10) Sodium Chloride 100 mls @ 999 mls/hr 06/09/21 16:40 Nacl 0.9% IV BIANCA PRN Hypotension Levofloxacin/Dextrose 500 mg in 100 mls @ 100 mls/hr 06/10/21 01:00 06/10/21 01:09 Levaquin 500mg/100ml IV 100 mls/hr Q48H CONNOR Administration Sodium Chloride 500 mls @ 0 mls/hr 06/10/21 08:00 06/10/21 07:33 Nacl 0.9% 500 Ml IV 06/10/21 20:00 Not Given ONCE@0800 NR As Directed Lorazepam 1 mg 06/10/21 00:09 Lorazepam 1 Mg Tab PO Q8H PRN Anxiety Memantine 5 mg 06/10/21 10:00 06/10/21 09:44 Memantine 5 Mg Tab PO Not Given DAILY [facility] Metoclopramide HCl 2.5 mg 06/10/21 00:30 Metoclopramide 10 Mg/2 Ml Inj IV Q6H PRN Nausea And Vomiting Midodrine 10 mg 06/10/21 08:00 06/10/21 09:03 Midodrine 5 Mg Tab PO Not Given TID CONNOR Ondansetron HCl 4 mg 06/10/21 00:12 Ondansetron 4 Mg/2 Ml Inj IV Q8H PRN Nausea And Vomiting Oxycodone/Acetaminophen 1 tab 06/10/21 00:12 Oxycodone /Acetaminophen 5-325mg Tab PO Q6H PRN Pain, Moderate (4-6) Pantoprazole Sodium 40 mg 06/10/21 10:00 06/10/21 09:45 Pantoprazole 40 Mg Tab PO Not Given DAILY [facility] Risperidone 0.5 mg 06/10/21 10:00 06/10/21 09:45 Risperidone 0.25 Mg Tab PO Not Given BID CONNOR Sevelamer Carbonate 800 mg 06/10/21 08:00 06/10/21 11:35 Sevelamer Carbonate 800 Mg Tab PO Not Given TIDWM [facility] Sodium Bicarbonate 1,300 mg 06/09/21 20:00 06/10/21 09:03 Sodium Bicarbonate 650 Mg Tab PO Not Given TID CONNOR Sodium Chloride 10 ml 06/10/21 10:00 06/10/21 09:46 Sodium Chloride 0.9% 10 Ml Flush Syringe IV 10 ml BID CONNOR Administration Sodium Chloride 10 ml 06/10/21 00:12 Sodium Chloride 0.9% 10 Ml Flush Syringe IV PRN PRN LINE FLUSH
--- NOTE | 2021-06-10 16:40 | Consultation ---
History of Present Illness - Reason for Consult Consult date: 06/10/21 end stage renal disease - History of Present Illness This is a 65-year-old woman with end-stage renal disease on hemodialysis, bipolar disorder who presented with left upper extremity swelling. She had her access intervened on 06/01 and since then has been expressing pain and swelling and she presented today for evaluation. She was subsequently admitted for further workup. Nephrology was consulted for ESRD management. Patient is currently agitated and not willing to cooperate and provide much history. Medications and Allergies Allergies Allergy/AdvReac Type Severity Reaction Status Date / Time buspirone [From BuSpar] Allergy Unknown Verified 04/28/21 15:16 Penicillins Allergy Rash Verified 02/26/21 12:38 corn AdvReac Unknown Verified 02/26/21 12:38 Home Medications Medication Instructions Recorded Confirmed Last Taken Type Acetaminophen [Acetaminophen TAB] 650 mg PO Q4H PRN tablet 06/03/19 06/09/21 05/31/21 Rx LORazepam [Ativan] 1 mg PO DAILY 08/20/19 06/09/21 06/01/21 06:00 History Memantine Xr [Namenda Xr] 5 mg PO DAILY 08/20/19 06/09/21 05/31/21 History Midodrine [Proamatine] 10 mg PO TID 08/20/19 06/09/21 05/31/21 History QUEtiapine [SEROquel] 400 mg PO BID 08/20/19 06/09/21 05/31/21 History Sevelamer Carbonate [Renvela] 0.8 gram PO TIDWM 09/02/20 06/09/21 05/31/21 History Divalproex [Sarina Serrano] 750 mg PO BID tablet 09/13/20 06/09/21 06/01/21 06:00 Rx Potassium Chloride [K-Dur] 10 meq PO DAILY 02/26/21 06/09/21 05/31/21 History risperiDONE [RisperDAL] 0.5 mg PO BID 02/26/21 06/09/21 05/31/21 History Pantoprazole [Protonix TAB] 40 mg PO DAILY 04/29/21 06/09/21 05/31/21 History HYDROcodone/APAP 5-325 [[place] 1 each PO Q4HR PRN #30 tablet 05/18/21 06/09/21 Unknown Rx 5-325 mg TAB] Clopidogrel [Plavix] 75 mg PO QDAY #90 tablet 06/01/21 06/09/21 Unknown Rx Active Meds: Active Medications Acetaminophen (Acetaminophen 325 Mg Tab) 650 mg PO Q4H PRN PRN Reason: Pain MILD(1-3)/Fever >100.5/DRAKE Clopidogrel Bisulfate (Clopidogrel 75 Mg Tab) 75 mg PO QDAY [facility] Last Admin: 06/10/21 09:45 Dose: Not Given Documented by: Divalproex Sodium (Divalproex Dr 250 Mg Tab) 750 mg PO BID [facility] Last Admin: 06/10/21 09:44 Dose: Not Given Documented by: Hydromorphone HCl (Hydromorphone 1 Mg/1 Ml Inj) 0.5 mg IV Q3H PRN PRN Reason: Pain , Severe (7-10) Sodium Chloride (Nacl 0.9%) 100 mls @ 999 mls/hr IV BIANCA PRN PRN Reason: Hypotension Levofloxacin/Dextrose (Levaquin 500mg/100ml) 500 mg in 100 mls @ 100 mls/hr IV Q48H [facility] Last Admin: 06/10/21 01:09 Dose: 100 mls/hr Documented by: Sodium Chloride (Nacl 0.9% 500 Ml) 500 mls @ 0 mls/hr IV ONCE@0800 NR Stop: 06/10/21 20:00 Last Admin: 06/10/21 07:33 Dose: Not Given Documented by: Lorazepam (Lorazepam 1 Mg Tab) 1 mg PO Q8H PRN PRN Reason: Anxiety Memantine (Memantine 5 Mg Tab) 5 mg PO DAILY [facility] Last Admin: 06/10/21 09:44 Dose: Not Given Documented by: Metoclopramide HCl (Metoclopramide 10 Mg/2 Ml Inj) 2.5 mg IV Q6H PRN PRN Reason: Nausea And Vomiting Midodrine (Midodrine 5 Mg Tab) 10 mg PO TID [facility] Last Admin: 06/10/21 13:54 Dose: Not Given Documented by: Ondansetron HCl (Ondansetron 4 Mg/2 Ml Inj) 4 mg IV Q8H PRN PRN Reason: Nausea And Vomiting Oxycodone/Acetaminophen (Oxycodone /Acetaminophen 5-325mg Tab) 1 tab PO Q6H PRN PRN Reason: Pain, Moderate (4-6) Pantoprazole Sodium (Pantoprazole 40 Mg Tab) 40 mg PO DAILY [facility] Last Admin: 06/10/21 09:45 Dose: Not Given Documented by: Risperidone (Risperidone 0.25 Mg Tab) 0.5 mg PO BID [facility] Last Admin: 06/10/21 09:45 Dose: Not Given Documented by: Sevelamer Carbonate (Sevelamer Carbonate 800 Mg Tab) 800 mg PO TIDWM [facility] Last Admin: 06/10/21 11:35 Dose: Not Given Documented by: Sodium Bicarbonate (Sodium Bicarbonate 650 Mg Tab) 1,300 mg PO TID [facility] Last Admin: 06/10/21 13:54 Dose: Not Given Documented by: Sodium Chloride (Sodium Chloride 0.9% 10 Ml Flush Syringe) 10 ml IV BID [facility] Last Admin: 06/10/21 09:46 Dose: 10 ml Documented by: Sodium Chloride (Sodium Chloride 0.9% 10 Ml Flush Syringe) 10 ml IV PRN PRN PRN Reason: LINE FLUSH Review of Systems ROS unobtainable: due to mental status Exam - Vital Signs Vital signs: Vital Signs Temp Pulse Resp BP Pulse Ox 97.7 F 75 17 131/58 99 06/09/21 12:46 06/09/21 12:46 06/09/21 12:46 06/09/21 12:46 06/09/21 12:46 - Physical Exam Narrative exam: General: No acute distress HEENT: Oral mucosa moist Neck: Supple, no JVD Chest: Clear to auscultation bilaterally Heart: RRR, S1 and S2, no pericardial rub Abdomen: Soft, nontender, no renal bruit Extremity: No peripheral cyanosis, edema Neurological: Alert, awake Dermatology: No skin rash Psych: Belligerent Musculoskeletal: No joint effusion Results - Lab Results 06/10/21 05:53 06/10/21 08:48 Most recent lab results Calcium 8.9 mg/dL (8.4-10.2) 06/10/21 08:48 Assessment and Plan Assessment - End-stage renal disease on hemodialysis - Hypertension - Anemia of ESRD - Hyperparathyroidism - Hyperphosphatemia Recommendations - Patient is belligerent and it is difficult to converse with her. Despite adequate counseling she is refusing HD and other medications. She was advised that hyperkalemia can result in cardiac arrest but she continues to refuse HD at this time. In addition, when a patient is agitated cannot proceed with HD as sudden movements can cause dislodgement of needles during HD causing excessive bleed. - Plan on HD once patient is cooperative and agreeable - Recommend psych consult and ethic committe review - Continue home antihypertensives - Transfuse for hgb < 7 - Epogen with HD - Continue phosphorus binders - ESRD diet with 1.4 g/kg per day protein - Renally dose medication for creatinine clearance less than 15 cc/min
[2021-06-10] MEDS: SODIUM POLYSTYRENE 15 GM/60 ML ORAL LIQD PO SCH (17:14)
[2021-06-10 20:43] LABS: Band Neutrophils # (Manual) 0.1 K/mm3; Hypochromasia 2+; Platelet Estimate Consistent w Auto; Total Cells Counted 100
[2021-06-11] MEDS: MIDODRINE 5 MG TAB PO SCH ×4 (00:47→22:53)
[2021-06-11] MEDS: SODIUM BICARBONATE 650 MG TAB PO SCH ×4 (00:47→22:51)
[2021-06-11] MEDS: DIVALPROEX DR 250 MG TAB PO SCH ×3 (00:48→22:52)
[2021-06-11] MEDS: risperiDONE 0.25 MG TAB PO SCH ×3 (00:49→22:52)
[2021-06-11 08:43] LABS: Basophils % (Auto) 0.9 % (0.0-1.8); Eosinophils # (Auto) 0.3 K/mm3 (0.0-0.4); Eosinophils % (Auto) 7.6 % (0.0-4.3); Lymphocytes # (Auto) 0.9 K/mm3 (1.2-5.4); Lymphocytes % (Auto) 20.8 % (13.4-35.0); Mean Corpuscular HGB Conc 31 % (30-34); Mean Corpuscular Volume 88 fl (79-97); Monocytes # (Auto) 0.5 K/mm3 (0.0-0.8); Monocytes % (Auto) 12.9 % (0.0-7.3); Platelet Count 269 K/mm3 (140-440); Red Blood Count 2.05 M/mm3 (3.65-5.03)
[2021-06-11 08:45] LABS: Hemoglobin 5.6 gm/dl (10.1-14.3)
[2021-06-11 08:46] LABS: Red Cell Distribution Width 20.6 % (13.2-15.2)
[2021-06-11] MEDS ORDERED: SODIUM CHLORIDE 0.9% 500 ML 500 ML IV ONE (09:08)
[2021-06-11] MEDS ORDERED: SODIUM CHLORIDE 0.9% 250ML 250 ML ONE (09:57)
[2021-06-11] MEDS: SODIUM POLYSTYRENE 15 GM/60 ML ORAL LIQD PO SCH (11:04)
[2021-06-11] MEDS: SEVELAMER CARBONATE 800 MG TAB PO SCH ×3 (11:04→17:46)
[2021-06-11] MEDS ORDERED: SODIUM CHLORIDE 0.9% 100 ML IV PRN (11:52)
[2021-06-11] MEDS: PANTOPRAZOLE 40 MG TAB PO SCH (14:29)
[2021-06-11] MEDS: CLOPIDOGREL 75 MG TAB PO SCH (14:29)
--- NOTE | 2021-06-11 14:38 | Progress Note ---
Assessment and Plan Assessment and plan: #Dialysis AV fistula malfunction #ESRD on dialysis #Possible surgical site infection - recent surgical procedure May 2015 with residual swelling of postoperative swelling - recent pseudoaneurysm of brachial artery removed; however, patient continues to have LUE pain and swelling - s/p Doppler of LUE to assess for possible abscess or hematoma - Continue Unasyn while pending Doppler read. If vitals remain stable and Dopplers negative for abscess and/or hematoma, Unasyn can be discontinued. Still pending read from a Doppler -Nephrology consulted. Appreciate recs. Patient accepted dialysis this morning. #Hypotension-resolved -Blood pressure has resolved after administration of on midodrine #Symptomatic anemia -Hemoglobin 6.2 (baseline unknown)-->5.6. -Likely secondary to anemia of chronic disease -Patient requested transfusion this morning. Patient transfused a total of 2 units PRBC with hemodialysis this morning #Insulin-dependent type 2 diabetes mellitus -Pending hemoglobin A1c -We will monitor with SSI until patient requires basal insulin #Seizure disorder #Bipolar disorder (type unknown) #Schizophrenia -Patient records reveal Depakote administration at home. We will continue same regimen -Patient endorses being diagnosed with bipolar disorder and schizophrenia; however, no medications have been identified. Concern is that patient has been off of psychiatric medications for an extended period of time. -Consult placed for geriatric psych; pending recs -Current psychiatric state is affecting medical management. #DVT prophylaxis -Continue subcutaneous heparin 5000 units every 8 hours Disposition Plan: Pending Yazmin-Psych consult. Disposition Plan: Continue medical manner History Interval history: No acute events overnight Hospitalist Physical - Constitutional Vitals: Temp Pulse Resp BP Pulse Ox 97.7 F 80 18 133/58 100 06/11/21 10:57 06/11/21 10:57 06/11/21 10:57 06/11/21 10:57 06/11/21 10:57 General appearance: Present: mild distress, well-nourished - EENT Eyes: Present: PERRL, EOM intact ENT: hearing intact, clear oral mucosa, dentition normal - Neck Neck: Present: supple, normal ROM - Respiratory Respiratory effort: normal - Cardiovascular Rhythm: regular Heart Sounds: Present: S1 & S2 Peripheral Pulses: within normal limits - Abdominal General gastrointestinal: soft, non-tender, non-distended, normal bowel sounds - Psychiatric Psychiatric: appropriate mood/affect, cooperative - Neurologic Neurologic: CNII-XII intact, moves all extremities - Allied Health Allied health notes reviewed: nursing HEART Score - HEART Score EKG: Non-specific Age: > 65 Risk factors: 1-2 risk factors - Critical Actions Critical Actions: 0-3 pts:0.9-1.7%risk of adverse cardiac event.Candidate for discharge Results - Labs CBC & Chem 7: 06/11/21 06:24 06/10/21 08:48 Labs: Laboratory Last Values WBC 4.2 K/mm3 (4.5-11.0) L 06/11/21 06:24 RBC 2.05 M/mm3 (3.65-5.03) L 06/11/21 06:24 Hgb 5.6 gm/dl (10.1-14.3) L* 06/11/21 06:24 Hct 18.0 % (30.3-42.9) L* 06/11/21 06:24 MCV 88 fl (79-97) 06/11/21 06:24 MCH 27 pg (28-32) L 06/11/21 06:24 MCHC 31 % (30-34) 06/11/21 06:24 RDW 20.6 % (13.2-15.2) H 06/11/21 06:24 Plt Count 269 K/mm3 (140-440) 06/11/21 06:24 Lymph % (Auto) 20.8 % (13.4-35.0) 06/11/21 06:24 [place] % (Auto) 12.9 % (0.0-7.3) H 06/11/21 06:24 Eos % (Auto) 7.6 % (0.0-4.3) H 06/11/21 06:24 Baso % (Auto) 0.9 % (0.0-1.8) 06/11/21 06:24 Lymph # (Auto) 0.9 K/mm3 (1.2-5.4) L 06/11/21 06:24 [place] # (Auto) 0.5 K/mm3 (0.0-0.8) 06/11/21 06:24 Eos # (Auto) 0.3 K/mm3 (0.0-0.4) 06/11/21 06:24 Baso # (Auto) 0.0 K/mm3 (0.0-0.1) 06/11/21 06:24 Add Manual Diff Complete 06/10/21 05:53 Total Counted 100 06/10/21 05:53 Seg Neutrophils % 57.8 % (40.0-70.0) 06/11/21 06:24 Seg Neuts % (Manual) 66.0 % (40.0-70.0) 06/10/21 05:53 Band Neutrophils % 1.0 % 06/10/21 05:53 Lymphocytes % (Manual) 13.0 % (13.4-35.0) L 06/10/21 05:53 Monocytes % (Manual) 17.0 % (0.0-7.3) H 06/10/21 05:53 Eosinophils % (Manual) 3.0 % (0.0-4.3) 06/10/21 05:53 Nucleated RBC % Not Reportable 06/10/21 05:53 Seg Neutrophils # 2.4 K/mm3 (1.8-7.7) 06/11/21 06:24 Seg Neutrophils # Man 3.8 K/mm3 (1.8-7.7) 06/10/21 05:53 Band Neutrophils # 0.1 K/mm3 06/10/21 05:53 Lymphocytes # (Manual) 0.8 K/mm3 (1.2-5.4) L 06/10/21 05:53 Abs React Lymphs (Man) 0.0 K/mm3 06/10/21 05:53 Monocytes # (Manual) 1.0 K/mm3 (0.0-0.8) H 06/10/21 05:53 Eosinophils # (Manual) 0.2 K/mm3 (0.0-0.4) 06/10/21 05:53 Basophils # (Manual) 0.0 K/mm3 (0.0-0.1) 06/10/21 05:53 Metamyelocytes # 0.0 K/mm3 06/10/21 05:53 Myelocytes # 0.0 K/mm3 06/10/21 05:53 Promyelocytes # 0.0 K/mm3 06/10/21 05:53 Blast Cells # 0.0 K/mm3 06/10/21 05:53 WBC Morphology Not Reportable 06/10/21 05:53 Hypersegmented Neuts Not Reportable 06/10/21 05:53 Hyposegmented Neuts Not Reportable 06/10/21 05:53 Hypogranular Neuts Not Reportable 06/10/21 05:53 Smudge Cells Not Reportable 06/10/21 05:53 Toxic Granulation Not Reportable 06/10/21 05:53 Toxic Vacuolation Not Reportable 06/10/21 05:53 Dohle Bodies Not Reportable 06/10/21 05:53 Pelger-Huet Anomaly Not Reportable 06/10/21 05:53 Ubaldo Rods Not Reportable 06/10/21 05:53 Platelet Estimate Consistent w auto 06/10/21 05:53 Clumped Platelets Not Reportable 06/10/21 05:53 Plt Clumps, EDTA Not Reportable 06/10/21 05:53 Large Platelets Not Reportable 06/10/21 05:53 Giant Platelets Not Reportable 06/10/21 05:53 Platelet Satelliting Not Reportable 06/10/21 05:53 Plt Morphology Comment Not Reportable 06/10/21 05:53 RBC Morphology Not Reportable 06/10/21 05:53 Dimorphic RBCs Not Reportable 06/10/21 05:53 Polychromasia Not Reportable 06/10/21 05:53 Hypochromasia 2+ 06/10/21 05:53 Poikilocytosis Not Reportable 06/10/21 05:53 Anisocytosis Not Reportable 06/10/21 05:53 Microcytosis Not Reportable 06/10/21 05:53 Macrocytosis Not Reportable 06/10/21 05:53 Spherocytes Not Reportable 06/10/21 05:53 Pappenheimer Bodies Not Reportable 06/10/21 05:53 Sickle Cells Not Reportable 06/10/21 05:53 Target Cells Not Reportable 06/10/21 05:53 Tear Drop Cells Not Reportable 06/10/21 05:53 Ovalocytes Not Reportable 06/10/21 05:53 Helmet Cells Not Reportable 06/10/21 05:53 [place] Bodies Not Reportable 06/10/21 05:53 [place] Rings Not Reportable 06/10/21 05:53 [place] Cells Not Reportable 06/10/21 05:53 Bite Cells Not Reportable 06/10/21 05:53 Crenated Cell Not Reportable 06/10/21 05:53 Elliptocytes Not Reportable 06/10/21 05:53 Acanthocytes (Spur) Not Reportable 06/10/21 05:53 Rouleaux Not Reportable 06/10/21 05:53 Hemoglobin C Crystals Not Reportable 06/10/21 05:53 Schistocytes Not Reportable 06/10/21 05:53 Malaria parasites Not Reportable 06/10/21 05:53 [place] Bodies Not Reportable 06/10/21 05:53 Hem Pathologist Commnt No 06/10/21 05:53 PT 13.0 Sec. (12.2-14.9) 06/09/21 17:29 INR 0.92 (0.87-1.13) 06/09/21 17:29 VBG pH 7.276 (7.320-7.420) L 06/09/21 17:29 Sodium 137 mmol/L (137-145) 06/10/21 08:48 Potassium TNR 06/10/21 08:48 Chloride 108.4 mmol/L (98-107) H 06/10/21 08:48 Carbon Dioxide 17 mmol/L (22-30) L 06/10/21 08:48 Anion Gap 20 mmol/L 06/10/21 08:48 BUN 58 mg/dL (7-17) H 06/10/21 08:48 Creatinine 5.9 mg/dL (0.6-1.2) H 06/10/21 08:48 Estimated GFR 9 ml/min 06/10/21 08:48 BUN/Creatinine Ratio 10 % 06/10/21 08:48 Glucose 85 mg/dL (65-100) 06/10/21 08:48 POC Glucose 90 mg/dL (70-105) 06/09/21 17:10 Hemoglobin A1c 4.9 % (4-6) 06/11/21 06:24 Lactic Acid 0.90 mmol/L (0.7-2.0) 06/09/21 17:29 Calcium 8.9 mg/dL (8.4-10.2) 06/10/21 08:48 Total Bilirubin 0.20 mg/dL (0.1-1.2) 06/09/21 13:53 AST 11 units/L (5-40) 06/09/21 13:53 ALT < 5 units/L (7-56) L 06/09/21 13:53 Alkaline Phosphatase 81 units/L (35-129) 06/09/21 13:53 Total Protein 6.2 g/dL (6.3-8.2) L 06/09/21 13:53 Albumin 3.2 g/dL (3.9-5) L 06/09/21 13:53 Albumin/Globulin Ratio 1.1 % 06/09/21 13:53 Urine Color Yellow (Yellow) 06/09/21 17:33 Urine Turbidity Clear (Clear) 06/09/21 17:33 Urine pH 5.0 (5.0-7.0) 06/09/21 17:33 Ur Specific [place] 1.012 (1.003-1.030) 06/09/21 17:33 Urine Protein 30 mg/dl mg/dL (Negative) 06/09/21 17:33 Urine Glucose (UA) Neg mg/dL (Negative) 06/09/21 17:33 Urine Ketones Neg mg/dL (Negative) 06/09/21 17:33 Urine Blood Neg (Negative) 06/09/21 17:33 Urine Nitrite Neg (Negative) 06/09/21 17:33 Urine Bilirubin Neg (Negative) 06/09/21 17:33 Urine Urobilinogen < 2.0 mg/dL (<2.0) 06/09/21 17:33 Ur Leukocyte Esterase Neg (Negative) 06/09/21 17:33 Urine WBC (Auto) 3.0 /HPF (0.0-6.0) 06/09/21 17:33 Urine RBC (Auto) 2.0 /HPF (0.0-6.0) 06/09/21 17:33 Urine Mucus Few /HPF 06/09/21 17:33 Hepatitis A IgM Ab Non-reactive (NonReactive) 06/10/21 05:53 Hep Bs Antigen Nonreactive (Negative) 06/10/21 05:53 Hep B Core IgM Ab Non-reactive (NonReactive) 06/10/21 05:53 Hepatitis C Antibody Non-reactive (NonReactive) 06/10/21 05:53 Blood Type A POSITIVE 06/10/21 08:48 Antibody Screen Negative 06/10/21 08:48 Crossmatch See Detail 06/10/21 08:48 Microbiology: Microbiology 06/09/21 13:53 Peripheral/Venous Blood Culture - Preliminary NO GROWTH AFTER 48 HOURS 06/09/21 13:53 Peripheral/Venous Blood Culture - Preliminary NO GROWTH AFTER 48 HOURS 06/09/21 Unknown Urine,[place] Urine Culture - Preliminary NO GROWTH AFTER 24 HOURS Active Medications - Current Medications Current Medications: Generic Name Dose Route Start Last Admin Trade Name Freq PRN Reason Stop Dose Admin Acetaminophen 650 mg 06/10/21 00:09 Acetaminophen 325 Mg Tab PO Q4H PRN Pain MILD(1-3)/Fever >100.5/DRAKE Clopidogrel Bisulfate 75 mg 06/10/21 10:00 06/11/21 14:29 Clopidogrel 75 Mg Tab PO 75 mg QDAY CONNOR Administration Divalproex Sodium 750 mg 06/10/21 10:00 06/11/21 14:[address] 250 Mg Tab PO 750 mg BID CONNOR Administration Hydromorphone HCl 0.5 mg 06/10/21 00:12 Hydromorphone 1 Mg/1 Ml Inj IV Q3H PRN Pain , Severe (7-10) Sodium Chloride 100 mls @ 999 mls/hr 06/09/21 16:40 Nacl 0.9% IV BIANCA PRN Hypotension Levofloxacin/Dextrose 500 mg in 100 mls @ 100 mls/hr 06/10/21 01:00 06/10/21 01:09 Levaquin 500mg/100ml IV 100 mls/hr Q48H CONNOR Administration Sodium Chloride 100 mls @ 999 mls/hr 06/11/21 11:52 Nacl 0.9% IV BIANCA PRN Hypotension Lorazepam 1 mg 06/10/21 00:09 Lorazepam 1 Mg Tab PO Q8H PRN Anxiety Memantine 5 mg 06/10/21 10:00 06/10/21 09:44 Memantine 5 Mg Tab PO Not Given DAILY CONNOR Metoclopramide HCl 2.5 mg 06/10/21 00:30 Metoclopramide 10 Mg/2 Ml Inj IV Q6H PRN Nausea And Vomiting Midodrine 10 mg 06/10/21 08:00 06/11/21 14:28 Midodrine 5 Mg Tab PO 10 mg TID CONNOR Administration Ondansetron HCl 4 mg 06/10/21 00:12 Ondansetron 4 Mg/2 Ml Inj IV Q8H PRN Nausea And Vomiting Oxycodone/Acetaminophen 1 tab 06/10/21 00:12 Oxycodone /Acetaminophen 5-325mg Tab PO Q6H PRN Pain, Moderate (4-6) Pantoprazole Sodium 40 mg 06/10/21 10:00 06/11/21 14:29 Pantoprazole 40 Mg Tab PO 40 mg DAILY CONNOR Administration Risperidone 0.5 mg 06/10/21 10:00 06/11/21 14:29 Risperidone 0.25 Mg Tab PO 0.5 mg BID CONNOR Administration Sevelamer Carbonate 800 mg 06/10/21 08:00 06/11/21 14:28 Sevelamer Carbonate 800 Mg Tab PO 800 mg TIDWM CONNOR Administration Sodium Bicarbonate 1,300 mg 06/09/21 20:00 06/11/21 14:28 Sodium Bicarbonate 650 Mg Tab PO 1,300 mg TID CONNOR Administration Sodium Chloride 10 ml 06/10/21 10:00 06/11/21 14:29 Sodium Chloride 0.9% 10 Ml Flush Syringe IV 10 ml BID CONNOR Administration Sodium Chloride 10 ml 06/10/21 00:12 Sodium Chloride 0.9% 10 Ml Flush Syringe IV PRN PRN LINE FLUSH Sodium Polystyrene Sulfonate 15 gm 06/10/21 17:00 06/11/21 11:04 Sodium Polystyrene 15 Gm/60 Ml Oral Liqd PO Not Given QDAY CONNOR Nutrition/Malnutrition Assess - Dietary Evaluation Nutrition/Malnutrition Findings: Nutrition Notes Start: 06/11/21 10:50 Freq: Status: Active Protocol: Document 06/11/21 10:50 CW (Rec: 06/11/21 11:01 [id number]) Nutrition Notes Current Diagnosis CKD (stage V CKD),Hypertension Other Pertinent Diagnosis anemia, on HD, GERD, Dementia, schizophernia, bipolar Current Diet Renal Labs/Tests BUN 58 Cr 5.9 HgbA1c 4.9 Pertinent Medications reviewed Height 5 ft 5 in Weight 74.843 kg [place] Body Weight (kg) 56.81 BMI 27.4 Weight change and time frame Weight fluctuating x 5 months within UBW range, likely related to fluid status Subjective/Other Information RN screen for skin risk. [place] score 13. Pt consumed 25% of meals this morning and refused previous meals. Pt currently unavailable d/t being in HD. Burn Absent Trauma Absent Current % PO Negligible Minimum of two criteria No Reduced [place] Sk[place] Strength Measurably Reduced (severe) #2 Nutrition Diagnosis Increased nutrient needs ( specify in comment below) Comments: protein Etiology renal insufficency As Evidenced by Signs and Symptoms pt on HD #1 Nutrition Diagnosis Inadequate energy intake As Evidenced by Signs and Symptoms pt refusal of meals Is patient on ventilator? No Is Patient Ambulatory and/or Out of Bed No REE-([facility]-confined to bed) [phone] Calculation Used for Recommendations [facility] Additional Notes protein needs: >90 (>1.2g/kgBW ) Fluid needs: 1000 - 1500 ml/ day or per MD Nutrition Intervention Change Diet Order: Continue current diet Add Supplement/Snack (indicate name/kcal Nepro BID /protein ) Provides kCal: 850 Provides Protein (gm) 38 Goal #1 Meet at least 75% of EER via PO Anticipated Discharge Needs: Renal diet Follow-Up By: 06/13/21 Additional Comments F/U intakes, ONS tolerance, nutritional interview - Attestation Statement I have reviewed and agreed w/ Malnutrition eval & tx plan: Yes
[2021-06-11] MEDS: MEMANTINE 5 MG TAB PO SCH (17:46)
--- NOTE | 2021-06-11 18:35 | Progress Note ---
Assessment and Plan Assessment - End-stage renal disease on hemodialysis - Hypertension - Anemia of ESRD - Hyperparathyroidism - Hyperphosphatemia Recommendations - Patient agreeable to HD today - Continue HD TTS - Assess daily for needs for additional sessions - Continue home antihypertensives - Transfuse for hgb < 7 - Epogen with HD - Continue phosphorus binders - ESRD diet with 1.4 g/kg per day protein - Renally dose medication for creatinine clearance less than 15 cc/min Subjective Date of service: 06/11/21 Principal diagnosis: UE infection Interval history: Patient was seen for her renal issues Nursing, interdisciplinary and consult notes were reviewed Vitals, input and output, medications and labs were reviewed Agreed to dialysis this morning Objective - Exam Narrative Exam: General: No acute distress HEENT: Oral mucosa moist Neck: Supple, no JVD Chest: Clear to auscultation bilaterally Heart: RRR, S1 and S2, no pericardial rub Abdomen: Soft, nontender, no renal bruit Extremity: No peripheral cyanosis, edema Neurological: Alert, awake Dermatology: No skin rash Psych: Calm, cooperative Musculoskeletal: No joint effusion - Vital Signs Vital signs: Vital Signs - 12hr 06/11/21 06/11/21 06/11/21 06:40 06:50 06:51 Temperature Pulse Rate 92 H 91 H Respiratory 30 H 22 Rate Blood Pressure 130/107 130/107 O2 Sat by Pulse 100 100 100 Oximetry O2 Sat by Pulse Oximetry [ Throughout] 06/11/21 06/11/21 06/11/21 07:01 07:10 07:21 Temperature Pulse Rate 92 H 96 H 110 H Respiratory 22 21 20 Rate Blood Pressure 142/63 162/112 162/112 O2 Sat by Pulse 100 100 100 Oximetry O2 Sat by Pulse Oximetry [ Throughout] 06/11/21 06/11/21 06/11/21 07:31 07:41 07:51 Temperature Pulse Rate 94 H 94 H 93 H Respiratory 23 25 H 23 Rate Blood Pressure 127/50 127/50 111/67 O2 Sat by Pulse 100 100 100 Oximetry O2 Sat by Pulse Oximetry [ Throughout] 06/11/21 06/11/21 06/11/21 08:01 08:10 08:37 Temperature Pulse Rate 93 H 93 H 92 H Respiratory 26 H 23 22 Rate Blood Pressure 127/64 127/64 92/37 O2 Sat by Pulse 100 100 100 Oximetry O2 Sat by Pulse Oximetry [ Throughout] 06/11/21 06/11/21 06/11/21 08:41 08:51 09:10 Temperature 98.2 F Pulse Rate 93 H 93 H 81 Respiratory 24 26 H 20 Rate Blood Pressure 92/37 107/31 134/65 O2 Sat by Pulse 100 100 Oximetry O2 Sat by Pulse 100 Oximetry [ Throughout] 06/11/21 06/11/21 06/11/21 09:15 09:30 09:45 Temperature Pulse Rate 81 83 86 Respiratory Rate Blood Pressure 134/65 126/65 133/64 O2 Sat by Pulse Oximetry O2 Sat by Pulse Oximetry [ Throughout] 06/11/21 06/11/21 06/11/21 10:00 10:12 10:15 Temperature 977 F H Pulse Rate 81 82 80 Respiratory 18 Rate Blood Pressure 120/60 122/62 122/62 O2 Sat by Pulse 100 Oximetry O2 Sat by Pulse Oximetry [ Throughout] 06/11/21 06/11/21 06/11/21 10:27 10:30 10:45 Temperature 97.7 F Pulse Rate 80 80 76 Respiratory 18 Rate Blood Pressure 122/60 122/60 125/64 O2 Sat by Pulse 100 Oximetry O2 Sat by Pulse Oximetry [ Throughout] 06/11/21 06/11/21 06/11/21 10:57 11:00 11:15 Temperature 97.7 F Pulse Rate 80 80 76 Respiratory 18 Rate Blood Pressure 133/58 133/58 119/64 O2 Sat by Pulse 100 Oximetry O2 Sat by Pulse Oximetry [ Throughout] 06/11/21 06/11/21 06/11/21 11:30 11:45 12:00 Temperature 97.7 F Pulse Rate 76 74 75 Respiratory 18 Rate Blood Pressure 114/60 123/57 122/63 O2 Sat by Pulse 100 Oximetry O2 Sat by Pulse Oximetry [ Throughout] 06/11/21 06/11/21 06/11/21 12:15 12:30 12:33 Temperature 97.7 F Pulse Rate 75 74 75 Respiratory 18 Rate Blood Pressure 123/65 124/65 124/65 O2 Sat by Pulse 100 Oximetry O2 Sat by Pulse Oximetry [ Throughout] 06/11/21 06/11/21 06/11/21 12:45 12:50 13:00 Temperature 97.7 F 98.2 F Pulse Rate 72 72 72 Respiratory 18 18 Rate Blood Pressure 133/60 133/60 133/60 O2 Sat by Pulse 100 Oximetry O2 Sat by Pulse 100 Oximetry [ Throughout] 06/11/21 06/11/21 15:00 18:18 Temperature Pulse Rate 78 Respiratory 20 Rate Blood Pressure O2 Sat by Pulse 94 Oximetry O2 Sat by Pulse Oximetry [ Throughout] - Lab 06/11/21 06:24 06/10/21 08:48 Most recent lab results Calcium 8.9 mg/dL (8.4-10.2) 06/10/21 08:48 Medications & Allergies - Medications Allergies/Adverse Reactions: Allergies buspirone [From BuSpar] Allergy (Verified 04/28/21 15:16) Unknown Penicillins Allergy (Verified 02/26/21 12:38) Rash corn Adverse Reaction (Verified 02/26/21 12:38) Unknown Home Medications: Home Medications Medication Instructions Recorded Confirmed Last Taken Type Acetaminophen [Acetaminophen TAB] 650 mg PO Q4H PRN tablet 06/03/19 06/09/21 05/31/21 Rx LORazepam [Ativan] 1 mg PO DAILY 08/20/19 06/09/21 06/01/21 06:00 History Memantine Xr [Namenda Xr] 5 mg PO DAILY 08/20/19 06/09/21 05/31/21 History Midodrine [Proamatine] 10 mg PO TID 08/20/19 06/09/21 05/31/21 History QUEtiapine [SEROquel] 400 mg PO BID 08/20/19 06/09/21 05/31/21 History Sevelamer Carbonate [Renvela] 0.8 gram PO TIDWM 09/02/20 06/09/21 05/31/21 History Divalproex [Sarina Serrano] 750 mg PO BID tablet 09/13/20 06/09/21 06/01/21 06: 00 Rx Potassium Chloride [K-Dur] 10 meq PO DAILY 02/26/21 06/09/21 05/31/21 History risperiDONE [RisperDAL] 0.5 mg PO BID 02/26/21 06/09/21 05/31/21 History Pantoprazole [Protonix TAB] 40 mg PO DAILY 04/29/21 06/09/21 05/31/21 History HYDROcodone/APAP 5-325 [[place] 1 each PO Q4HR PRN #30 tablet 05/18/21 06/09/21 Unknown Rx 5-325 mg TAB] Clopidogrel [Plavix] 75 mg PO QDAY #90 tablet 06/01/21 06/09/21 Unknown Rx Active Medications: Generic Name Dose Route Start Last Admin Trade Name Freq PRN Reason Stop Dose Admin Acetaminophen 650 mg 06/10/21 00:09 Acetaminophen 325 Mg Tab PO Q4H PRN Pain MILD(1-3)/Fever >100.5/DRAKE Clopidogrel Bisulfate 75 mg 06/10/21 10:00 06/11/21 14:29 Clopidogrel 75 Mg Tab PO 75 mg QDAY CONNOR Administration Divalproex Sodium 750 mg 06/10/21 10:00 06/11/21 14:[address] 250 Mg Tab PO 750 mg BID CONNOR Administration Hydromorphone HCl 0.5 mg 06/10/21 00:12 Hydromorphone 1 Mg/1 Ml Inj IV Q3H PRN Pain , Severe (7-10) Sodium Chloride 100 mls @ 999 mls/hr 06/09/21 16:40 Nacl 0.9% IV BIANCA PRN Hypotension Levofloxacin/Dextrose 500 mg in 100 mls @ 100 mls/hr 06/10/21 01:00 06/10/21 01:09 Levaquin 500mg/100ml IV 100 mls/hr Q48H CONNOR Administration Sodium Chloride 100 mls @ 999 mls/hr 06/11/21 11:52 Nacl 0.9% IV BIANCA PRN Hypotension Lorazepam 1 mg 06/10/21 00:09 Lorazepam 1 Mg Tab PO Q8H PRN Anxiety Memantine 5 mg 06/10/21 10:00 06/11/21 17:46 Memantine 5 Mg Tab PO Not Given DAILY CONNOR Metoclopramide HCl 2.5 mg 06/10/21 00:30 Metoclopramide 10 Mg/2 Ml Inj IV Q6H PRN Nausea And Vomiting Midodrine 10 mg 06/10/21 08:00 06/11/21 14:28 Midodrine 5 Mg Tab PO 10 mg TID CONNOR Administration Ondansetron HCl 4 mg 06/10/21 00:12 Ondansetron 4 Mg/2 Ml Inj IV Q8H PRN Nausea And Vomiting Oxycodone/Acetaminophen 1 tab 06/10/21 00:12 Oxycodone /Acetaminophen 5-325mg Tab PO Q6H PRN Pain, Moderate (4-6) Pantoprazole Sodium 40 mg 06/10/21 10:00 06/11/21 14:29 Pantoprazole 40 Mg Tab PO 40 mg DAILY CONNOR Administration Risperidone 0.5 mg 06/10/21 10:00 06/11/21 14:29 Risperidone 0.25 Mg Tab PO 0.5 mg BID CONNOR Administration Sevelamer Carbonate 800 mg 06/10/21 08:00 06/11/21 17:46 Sevelamer Carbonate 800 Mg Tab PO Not Given TIDWM CONNOR Sodium Bicarbonate 1,300 mg 06/09/21 20:00 06/11/21 14:28 Sodium Bicarbonate 650 Mg Tab PO 1,300 mg TID CONNOR Administration Sodium Chloride 10 ml 06/10/21 10:00 06/11/21 14:29 Sodium Chloride 0.9% 10 Ml Flush Syringe IV 10 ml BID CONNOR Administration Sodium Chloride 10 ml 06/10/21 00:12 Sodium Chloride 0.9% 10 Ml Flush Syringe IV PRN PRN LINE FLUSH Sodium Polystyrene Sulfonate 15 gm 06/10/21 17:00 06/11/21 11:04 Sodium Polystyrene 15 Gm/60 Ml Oral Liqd PO Not Given QDAY CONNOR
[2021-06-11 23:49] LABS: Calcium 8.6 mg/dL (8.4-10.2)
[2021-06-12 05:59] LABS: Basophils % (Auto) 0.4 % (0.0-1.8); Eosinophils # (Auto) 0.2 K/mm3 (0.0-0.4); Eosinophils % (Auto) 3.6 % (0.0-4.3); Hematocrit 28.6 % (30.3-42.9); Hemoglobin 9.5 gm/dl (10.1-14.3); Lymphocytes # (Auto) 2.2 K/mm3 (1.2-5.4); Lymphocytes % (Auto) 39.1 % (13.4-35.0); Mean Corpuscular HGB Conc 33 % (30-34); Mean Corpuscular Volume 87 fl (79-97); Monocytes # (Auto) 0.8 K/mm3 (0.0-0.8); Monocytes % (Auto) 14.2 % (0.0-7.3); Platelet Count 210 K/mm3 (140-440); Red Blood Count 3.31 M/mm3 (3.65-5.03); Red Cell Distribution Width 17.8 % (13.2-15.2)
[2021-06-12 06:11] LABS: Calcium 9.1 mg/dL (8.4-10.2)
[2021-06-12] MEDS: MIDODRINE 5 MG TAB PO SCH ×3 (09:28→22:14)
[2021-06-12] MEDS: SODIUM BICARBONATE 650 MG TAB PO SCH ×3 (09:28→22:14)
[2021-06-12] MEDS: SEVELAMER CARBONATE 800 MG TAB PO SCH ×3 (09:28→17:09)
[2021-06-12] MEDS: risperiDONE 0.25 MG TAB PO SCH ×2 (09:28→22:14)
[2021-06-12] MEDS: PANTOPRAZOLE 40 MG TAB PO SCH (09:28)
[2021-06-12] MEDS: CLOPIDOGREL 75 MG TAB PO SCH (09:29)
[2021-06-12] MEDS: MEMANTINE 5 MG TAB PO SCH (09:29)
[2021-06-12] MEDS: DIVALPROEX DR 250 MG TAB PO SCH ×2 (09:29→22:14)
[2021-06-12] MEDS: SODIUM POLYSTYRENE 15 GM/60 ML ORAL LIQD PO SCH (09:30)
--- NOTE | 2021-06-12 11:01 | Consultation ---
History of Present Illness - Reason for Consult Consult date: 06/12/21 Reason for consult: hx of schizophrenia - History of Present Psychiatric Illness Per ER Note: Patient is a 65-year-old female present with a chief complaint of left arm swelling. The patient has surgical incision on left arm which included "excision of left brachial artery pseudoaneurysm with ligation of the brachial artery and repair with interposition of left reverse great saphenous vein graft" on 06/01/[address] Caraballo. Patient has a functioning Vas-Cath in the left chest last received dialysis 06/04/2021. The dialysis nurse reports there were conflicting stories on why the patient did not come to dialysis 2 days ago as she normally goes every Sunday. Dialysis nurse states when the patient arrived today she noticed that her left upper extremity was swollen (this is the first time she seen her since the procedure) and she was c oncerned that the arm was infected. There is no history of fever at hemodialysis. She states the patient has a history of dementia was at her baseline mentally. The patient complains of pain in both upper extremities. History is was obtained from dialysis nurse at [phone]. The dialysis nurse also mentioned the patient was complaining of left knee pain Oksana Randolph is a 65y/o female patient I seen today. The patient is a/o x 3. She was slightly confused when asking who was the [place] President. She is calm, cooperative and pleasant. The patient is polite. She says she was admitted because she had surgery on her arms. The patient is a dialysis patient. She says she has a history of bipolar and schizophrenia. She could not remember all of her meds but states she takes depakote. She says she currently resides in a transitional home but is getting ready to move in with her sons. She also mentions something about [facility] and states she doesn't know if they will accept her back. She says she was seeing Dr. Wharton as a psychiatrist at one point. The patient says she's compliant with her medications. She denies SI/HI or ever feeling like this. She also denies hallucinations of any kind. The patient says she feels mentally stable and alert. PAST PSYCHIATRIC HISTORY Diagnoses: bipolar, schizoaffective Suicide attempts or Self-harm behavior: Denies Prior psychiatric hospitalizations: Denies Substance Abuse history: Denies Previous psychiatric medications tried: Depakote Outpatient treatment: Yes PAST MEDICAL HISTORY: ESRD, dialysis Family Psychiatric History: None reported or documented SOCIAL HISTORY Marital Status: Living Arrangements: Transitional home Employment Status: Retired Access to guns/weapons: None reported Education: History of Abuse: None reported Legal History: Yes REVIEW OF SYSTEMS Constitutional: Negative for weight loss ENT: Negative for stridor Respiratory: Negative for cough or hemoptysis All other systems reviewed and are negative MENTAL STATUS EXAMINATION General Appearance and Behavior: Age appropriate, good hygiene, wearing appropriate clothes, good eye contact, calm, polite, pleasant Cooperation: Participating/engaged Psychomotor Behavior: Psychomotor normal Mood: stable Affect and affective range: Congruent with mood Thought Process: goal directed Thought Content: optimistic Speech: Normal rate, volume and rhythm Suicidal Ideation: Denies Homicidal Ideation: Denies Impulse Control: Normal Insight and Judgment: Limited insight and judgment Memory: Normal Attention: Normal Orientation: Alert, oriented Assessment and Plan (1) Hx Bipolar Disorder (2) Hx of schizophrenia Treatment Plan Agree with current home meds Sitter: defer to primary Medical: per primary Disposition: Do not recommend acute psychiatric inpatient treatment Will sign off. Thanks Case staffed with Dr. Goodwin. Medications and Allergies Allergies Allergy/AdvReac Type Severity Reaction Status Date / Time buspirone [From BuSpar] Allergy Unknown Verified 04/28/21 15:16 Penicillins Allergy Rash Verified 02/26/21 12:38 corn AdvReac Unknown Verified 02/26/21 12:38 Home Medications Medication Instructions Recorded Confirmed Last Taken Type Acetaminophen [Acetaminophen TAB] 650 mg PO Q4H PRN tablet 06/03/19 06/09/21 05/31/21 Rx LORazepam [Ativan] 1 mg PO DAILY 08/20/19 06/09/21 06/01/21 06:00 History Memantine Xr [Namenda Xr] 5 mg PO DAILY 08/20/19 06/09/21 05/31/21 History Midodrine [Proamatine] 10 mg PO TID 08/20/19 06/09/21 05/31/21 History QUEtiapine [SEROquel] 400 mg PO BID 08/20/19 06/09/21 05/31/21 History Sevelamer Carbonate [Renvela] 0.8 gram PO TIDWM 09/02/20 06/09/21 05/31/[address] [Depakote Dr] 750 mg PO BID tablet 09/13/20 06/09/21 06/01/21 06:00 Rx Potassium Chloride [K-Dur] 10 meq PO DAILY 02/26/21 06/09/21 05/31/21 History risperiDONE [RisperDAL] 0.5 mg PO BID 02/26/21 06/09/21 05/31/21 History Pantoprazole [Protonix TAB] 40 mg PO DAILY 04/29/21 06/09/21 05/31/21 History HYDROcodone/APAP 5-325 [[place] 1 each PO Q4HR PRN #30 tablet 05/18/21 06/09/21 Unknown Rx 5-325 mg TAB] Clopidogrel [Plavix] 75 mg PO QDAY #90 tablet 06/01/21 06/09/21 Unknown Rx Active Meds: Active Medications Acetaminophen (Acetaminophen 325 Mg Tab) 650 mg PO Q4H PRN PRN Reason: Pain MILD(1-3)/Fever >100.5/DRAKE Clopidogrel Bisulfate (Clopidogrel 75 Mg Tab) 75 mg PO QDAY [facility] [place] Last Admin: 06/12/21 09:29 Dose: 75 mg Documented by: Divalproex Sodium (Divalproex Dr 250 Mg Tab) 750 mg PO BID [facility] [place] Last Admin: 06/12/21 09:29 Dose: 750 mg Documented by: Hydromorphone HCl (Hydromorphone 1 Mg/1 Ml Inj) 0.5 mg IV Q3H PRN PRN Reason: Pain , Severe (7-10) Sodium Chloride (Nacl 0.9%) 100 mls @ 999 mls/hr IV BIANCA PRN PRN Reason: Hypotension Levofloxacin/Dextrose (Levaquin 500mg/100ml) 500 mg in 100 mls @ 100 mls/hr IV Q48H [facility] [place] Last Admin: 06/12/21 00:33 Dose: 100 mls/hr Documented by: Sodium Chloride (Nacl 0.9%) 100 mls @ 999 mls/hr IV BIANCA PRN PRN Reason: Hypotension Lorazepam (Lorazepam 1 Mg Tab) 1 mg PO Q8H PRN PRN Reason: Anxiety Memantine (Memantine 5 Mg Tab) 5 mg PO DAILY [facility] [place] Last Admin: 06/12/21 09:29 Dose: 5 mg Documented by: Metoclopramide HCl (Metoclopramide 10 Mg/2 Ml Inj) 2.5 mg IV Q6H PRN PRN Reason: Nausea And Vomiting Midodrine (Midodrine 5 Mg Tab) 10 mg PO TID [facility] [place] Last Admin: 06/12/21 09:28 Dose: 10 mg Documented by: Ondansetron HCl (Ondansetron 4 Mg/2 Ml Inj) 4 mg IV Q8H PRN PRN Reason: Nausea And Vomiting Oxycodone/Acetaminophen (Oxycodone /Acetaminophen 5-325mg Tab) 1 tab PO Q6H PRN PRN Reason: Pain, Moderate (4-6) Pantoprazole Sodium (Pantoprazole 40 Mg Tab) 40 mg PO DAILY [facility] [place] Last Admin: 06/12/21 09:28 Dose: 40 mg Documented by: Risperidone (Risperidone 0.25 Mg Tab) 0.5 mg PO BID [facility] [place] Last Admin: 06/12/21 09:28 Dose: 0.5 mg Documented by: Sevelamer Carbonate (Sevelamer Carbonate 800 Mg Tab) 800 mg PO TIDWM [facility] [place] Last Admin: 06/12/21 09:28 Dose: 800 mg Documented by: Sodium Bicarbonate (Sodium Bicarbonate 650 Mg Tab) 1,300 mg PO TID [facility] [place] Last Admin: 06/12/21 09:28 Dose: 1,300 mg Documented by: Sodium Chloride (Sodium Chloride 0.9% 10 Ml Flush Syringe) 10 ml IV BID [facility] [place] Last Admin: 06/12/21 09:29 Dose: 10 ml Documented by: Sodium Chloride (Sodium Chloride 0.9% 10 Ml Flush Syringe) 10 ml IV PRN PRN PRN Reason: LINE FLUSH Sodium Polystyrene Sulfonate (Sodium Polystyrene 15 Gm/60 Ml Oral Liqd) 15 gm PO QDAY [facility] [place] Last Admin: 06/12/21 09:30 Dose: 15 gm Documented by: Mental Status Exam - Vital signs Last Vital Signs Temp 97.3 F L 06/12/21 08:39 Pulse 94 H 06/12/21 08:39 Resp 20 06/12/21 08:39 BP 125/56 06/12/21 08:39 Pulse Ox 99 06/12/21 08:39 Results Result Diagrams: 06/12/21 05:38 06/12/21 05:38 Abnormal lab results 06/10/21 06/10/21 06/11/21 Range/Units 07:30 08:48 23:03 RBC (3.65-5.03) M/mm3 Hgb (10.1-14.3) gm/dl Hct (30.3-42.9) % RDW (13.2-15.2) % Lymph % (Auto) (13.4-35.0) % Schle[place] % (Auto) (0.0-7.3) % BUN 21 H (7-17) mg/dL Creatinine 2.9 H D (0.6-1.2) mg/dL Glucose (65-100) mg/dL Phosphorus 2.30 L (2.5-4.5) mg/dL ALT 6 L (7-56) units/L Albumin 3.0 L (3.9-5) g/dL Crossmatch See Detail See Detail 06/12/21 06/12/21 Range/Units 05:38 05:38 RBC 3.31 L (3.65-5.03) M/mm3 Hgb 9.5 L D (10.1-14.3) gm/dl Hct 28.6 L D (30.3-42.9) % RDW 17.8 H (13.2-15.2) % Lymph % (Auto) 39.1 H (13.4-35.0) % Schleicher % (Auto) 14.2 H (0.0-7.3) % BUN 22 H (7-17) mg/dL Creatinine 3.0 H (0.6-1.2) mg/dL Glucose 64 L (65-100) mg/dL Phosphorus (2.5-4.5) mg/dL ALT (7-56) units/L Albumin (3.9-5) g/dL Crossmatch All other labs normal.
--- NOTE | 2021-06-12 12:16 | Progress Note ---
Assessment and Plan Patient with hematoma of left arm after excision of left brachial pseudoaneurysm with proximal brachial artery to distal brachial artery bypass with reversed saphenous vein graft. I have reviewed the ultrasound and there is the fluid collection appears to be a hematoma. Although the graft was not identified, there is mutliphasic flow in the radial artery and the patient has a palpable radial pulse, which would not be possible if the graft was occluded. Recommend elevating the left arm daily as well as warm compresses to the left arm 2-3 time per day for 20-30 minutes at a time to help soften the hematoma as well as for comfort. The patient can be discharged from a vascular surgery standpoint. She should contact the office for a follow up in 1-2 weeks for a wound check as well as giving orders to access her right arm arteriovenous graft for dialysis so that her left chest permacath can be removed. Subjective Date of service: 06/12/21 Principal diagnosis: UE infection Interval history: Patient with complaints of left arm pain. No additional complaints. Objective - Constitutional Vitals: Vital Signs - 12hr 06/12/21 06/12/21 06/12/21 06:29 08:39 11:46 Temperature 98.2 F 97.3 F L 98.3 F Pulse Rate 93 H 94 H 74 Respiratory 18 20 20 Rate Blood Pressure 125/56 108/51 Blood Pressure 122/61 [Right] O2 Sat by Pulse 96 99 100 Oximetry General appearance: Present: no acute distress Extremities: pulses intact (palpable left radial pulse), abnormal (hematoma at left arm incision, incision intact without erythema or other signs of infection, ecchymosis in left forearm) - Labs CBC & Chem 7: 06/12/21 05:38 06/12/21 05:38 Labs: Abnormal lab results 06/10/21 06/10/21 06/11/21 Range/Units 07:30 08:48 23:03 RBC (3.65-5.03) M/mm3 Hgb (10.1-14.3) gm/dl Hct (30.3-42.9) % RDW (13.2-15.2) % Lymph % (Auto) (13.4-35.0) % Alexander % (Auto) (0.0-7.3) % BUN 21 H (7-17) mg/dL Creatinine 2.9 H D (0.6-1.2) mg/dL Glucose (65-100) mg/dL Phosphorus 2.30 L (2.5-4.5) mg/dL ALT 6 L (7-56) units/L Albumin 3.0 L (3.9-5) g/dL Crossmatch See Detail See Detail 06/12/21 06/12/21 Range/Units 05:38 05:38 RBC 3.31 L (3.65-5.03) M/mm3 Hgb 9.5 L D (10.1-14.3) gm/dl Hct 28.6 L D (30.3-42.9) % RDW 17.8 H (13.2-15.2) % Lymph % (Auto) 39.1 H (13.4-35.0) % Alexander % (Auto) 14.2 H (0.0-7.3) % BUN 22 H (7-17) mg/dL Creatinine 3.0 H (0.6-1.2) mg/dL Glucose 64 L (65-100) mg/dL Phosphorus (2.5-4.5) mg/dL ALT (7-56) units/L Albumin (3.9-5) g/dL Crossmatch Medications & Allergies - Medications Allergies/Adverse Reactions: Allergies buspirone [From BuSpar] Allergy (Verified 04/28/21 15:16) Unknown Penicillins Allergy (Verified 02/26/21 12:38) Rash corn Adverse Reaction (Verified 02/26/21 12:38) Unknown Home Medications: Home Medications Medication Instructions Recorded Confirmed Last Taken Type Acetaminophen [Acetaminophen TAB] 650 mg PO Q4H PRN tablet 06/03/19 06/09/21 05/31/21 Rx LORazepam [Ativan] 1 mg PO DAILY 08/20/19 06/09/21 06/01/21 06:00 History Memantine Xr [Namenda Xr] 5 mg PO DAILY 08/20/19 06/09/21 05/31/21 History Midodrine [Proamatine] 10 mg PO TID 08/20/19 06/09/21 05/31/21 History QUEtiapine [SEROquel] 400 mg PO BID 08/20/19 06/09/21 05/31/21 History Sevelamer Carbonate [Renvela] 0.8 gram PO TIDWM 09/02/20 06/09/21 05/31/[address] [Sarina Serrano] 750 mg PO BID tablet 09/13/20 06/09/21 06/01/21 06:00 Rx Potassium Chloride [K-Dur] 10 meq PO DAILY 02/26/21 06/09/21 05/31/21 History risperiDONE [RisperDAL] 0.5 mg PO BID 02/26/21 06/09/21 05/31/21 History Pantoprazole [Protonix TAB] 40 mg PO DAILY 04/29/21 06/09/21 05/31/21 History HYDROcodone/APAP 5-325 [[place] 1 each PO Q4HR PRN #30 tablet 05/18/21 06/09/21 Unknown Rx 5-325 mg TAB] Clopidogrel [Plavix] 75 mg PO QDAY #90 tablet 06/01/21 06/09/21 Unknown Rx Active Medications: Generic Name Dose Route Start Last Admin Trade Name Preetq PRN Reason Stop Dose Admin Acetaminophen 650 mg 06/10/21 00:09 Acetaminophen 325 Mg Tab PO Q4H PRN Pain MILD(1-3)/Fever >100.5/DRAKE Clopidogrel Bisulfate 75 mg 06/10/21 10:00 06/12/21 09:29 Clopidogrel 75 Mg Tab PO 75 mg QDAY [facility] Administration Divalproex Sodium 750 mg 06/10/21 10:00 06/12/21 09:[address] 250 Mg Tab PO 750 mg BID [facility] Administration Hydromorphone HCl 0.5 mg 06/10/21 00:12 Hydromorphone 1 Mg/1 Ml Inj IV Q3H PRN Pain , Severe (7-10) Sodium Chloride 100 mls @ 999 mls/hr 06/09/21 16:40 Nacl 0.9% IV BIANCA PRN Hypotension Levofloxacin/Dextrose 500 mg in 100 mls @ 100 mls/hr 06/10/21 01:00 06/12/21 00:33 Levaquin 500mg/100ml IV 100 mls/hr Q48H [facility] Administration Sodium Chloride 100 mls @ 999 mls/hr 06/11/21 11:52 Nacl 0.9% IV BIANCA PRN Hypotension Lorazepam 1 mg 06/10/21 00:09 Lorazepam 1 Mg Tab PO Q8H PRN Anxiety Memantine 5 mg 06/10/21 10:00 06/12/21 09:29 Memantine 5 Mg Tab PO 5 mg DAILY [facility] Administration Metoclopramide HCl 2.5 mg 06/10/21 00:30 Metoclopramide 10 Mg/2 Ml Inj IV Q6H PRN Nausea And Vomiting Midodrine 10 mg 06/10/21 08:00 06/12/21 09:28 Midodrine 5 Mg Tab PO 10 mg TID [facility] Administration Ondansetron HCl 4 mg 06/10/21 00:12 Ondansetron 4 Mg/2 Ml Inj IV Q8H PRN Nausea And Vomiting Oxycodone/Acetaminophen 1 tab 06/10/21 00:12 Oxycodone /Acetaminophen 5-325mg Tab PO Q6H PRN Pain, Moderate (4-6) Pantoprazole Sodium 40 mg 06/10/21 10:00 06/12/21 09:28 Pantoprazole 40 Mg Tab PO 40 mg DAILY [facility] Administration Risperidone 0.5 mg 06/10/21 10:00 06/12/21 09:28 Risperidone 0.25 Mg Tab PO 0.5 mg BID [facility] Administration Sevelamer Carbonate 800 mg 06/10/21 08:00 06/12/21 09:28 Sevelamer Carbonate 800 Mg Tab PO 800 mg TIDWM [facility] Administration Sodium Bicarbonate 1,300 mg 06/09/21 20:00 06/12/21 09:28 Sodium Bicarbonate 650 Mg Tab PO 1,300 mg TID [facility] Administration Sodium Chloride 10 ml 06/10/21 10:00 06/12/21 09:29 Sodium Chloride 0.9% 10 Ml Flush Syringe IV 10 ml BID [facility] Administration Sodium Chloride 10 ml 06/10/21 00:12 Sodium Chloride 0.9% 10 Ml Flush Syringe IV PRN PRN LINE FLUSH Sodium Polystyrene Sulfonate 15 gm 06/10/21 17:00 06/12/21 09:30 Sodium Polystyrene 15 Gm/60 Ml Oral Liqd PO 15 gm QDAY [facility] Administration HEART Score - HEART Score EKG: Non-specific Age: > 65 Risk factors: 1-2 risk factors - Critical Actions Critical Actions: 0-3 pts:0.9-1.7%risk of adverse cardiac event.Candidate for discharge
--- NOTE | 2021-06-12 15:33 | Progress Note ---
Assessment and Plan Assessment and plan: #Dialysis AV fistula malfunction #ESRD on dialysis #Possible surgical site infection-resolved - recent surgical procedure May 2015 with residual swelling of postoperative swelling - recent pseudoaneurysm of brachial artery removed; however, patient continues to have LUE pain and swelling - s/p Doppler of LUE to assess for possible abscess or hematoma -Discontinuing Unasyn. Vascular surgery evaluated patient and endorses no clinical sign of infection. Patient can be seen in vascular clinic in 1 to 2 weeks. -Nephrology consulted. Appreciate recs. Status post hemodialysis on 06/11/2021 #Hypotension-resolved -Blood pressure has resolved after administration of on midodrine #Symptomatic anemia-resolved -Hemoglobin 6.2 (baseline unknown)-->5.6-->9.5 -Likely secondary to anemia of chronic disease -Patient requested transfusion on 06/11/2021. Patient transfused a total of 2 units PRBC with hemodialysis on 06/11/2021 #Insulin-dependent type 2 diabetes mellitus -Pending hemoglobin A1c -We will monitor with SSI until patient requires basal insulin #Seizure disorder #Bipolar disorder (type unknown) #Schizophrenia -Patient records reveal Depakote administration at home. We will continue same regimen -Patient endorses being diagnosed with bipolar disorder and schizophrenia; however, no medications have been identified. Concern is that patient has been off of psychiatric medications for an extended period of time. -Consult placed for geriatric psych; appreciate recs. Currently cooperative and psychiatry has signed off. #DVT prophylaxis -Continue subcutaneous heparin 5000 units every 8 hours #Discharge planning -Patient is cleared medically and ready for discharge. -Patient will be returning back to [facility] and rehab given the fact that she requires total care and does not ambulate. The patient's son (Raymundo) is a truck driver helper and would not be able to provide her the adequate care at this point in time. He also requested the patient return back to [facility] and rehab. -Planning for return to [facility] and rehab on 06/13/2021. Ordering coron avirus PCR to be performed in the morning. Disposition Plan: Pending discharge to [facility] and rehab tomorrow Total Time Spent with Patient (Minutes): 35 History Interval history: No acute events overnight. Hospitalist Physical - Constitutional Vitals: Temp Pulse Resp BP Pulse Ox 98.3 F 74 20 108/51 100 06/12/21 11:46 06/12/21 11:46 06/12/21 11:46 06/12/21 11:46 06/12/21 11:46 General appearance: Present: no acute distress - EENT Eyes: Present: PERRL, EOM intact ENT: hearing intact, clear oral mucosa, dentition normal - Neck Neck: Present: supple, normal ROM, other (Vas-Cath in left upper chest. Clean site without purulence or sign of infection) - Respiratory Respiratory effort: normal - Cardiovascular Rhythm: regular Heart Sounds: Present: S1 & S2 - Extremities Extremities: no ischemia, pulses intact, pulses symmetrical, normal temperature, normal color Extremity abnormal: edema (Mild edema and erythema of medial left upper extremity at site of incision), erythema, tenderness (Bilateral tenderness at medial upper arm at site of incision. Appropriate tenderness given recent operation.) Peripheral Pulses: within normal limits - Abdominal General gastrointestinal: soft, non-tender, non-distended, normal bowel sounds - Integumentary Integumentary: Present: warm, dry - Psychiatric Psychiatric: appropriate mood/affect, intact judgment & insight, memory intact, cooperative - Neurologic Neurologic: CNII-XII intact, moves all extremities - Allied Health Allied health notes reviewed: nursing HEART Score - HEART Score EKG: Non-specific Age: > 65 Risk factors: 1-2 risk factors - Critical Actions Critical Actions: 0-3 pts:0.9-1.7%risk of adverse cardiac event.Candidate for discharge Results - Labs CBC & Chem 7: 06/12/21 05:38 06/12/21 05:38 Labs: Laboratory Last Values WBC 5.7 K/mm3 (4.5-11.0) 06/12/21 05:38 RBC 3.31 M/mm3 (3.65-5.03) L 06/12/21 05:38 Hgb 9.5 gm/dl (10.1-14.3) L D 06/12/21 05:38 Hct 28.6 % (30.3-42.9) L D 06/12/21 05:38 MCV 87 fl (79-97) 06/12/21 05:38 MCH 29 pg (28-32) 06/12/21 05:38 MCHC 33 % (30-34) 06/12/21 05:38 RDW 17.8 % (13.2-15.2) H 06/12/21 05:38 Plt Count 210 K/mm3 (140-440) 06/12/21 05:38 Lymph % (Auto) 39.1 % (13.4-35.0) H 06/12/21 05:38 [place] % (Auto) 14.2 % (0.0-7.3) H 06/12/21 05:38 Eos % (Auto) 3.6 % (0.0-4.3) 06/12/21 05:38 Baso % (Auto) 0.4 % (0.0-1.8) 06/12/21 05:38 Lymph # (Auto) 2.2 K/mm3 (1.2-5.4) 06/12/21 05:38 [place] # (Auto) 0.8 K/mm3 (0.0-0.8) 06/12/21 05:38 Eos # (Auto) 0.2 K/mm3 (0.0-0.4) 06/12/21 05:38 Baso # (Auto) 0.0 K/mm3 (0.0-0.1) 06/12/21 05:38 Add Manual Diff Complete 06/10/21 05:53 Total Counted 100 06/10/21 05:53 Seg Neutrophils % 42.7 % (40.0-70.0) 06/12/21 05:38 Seg Neuts % (Manual) 66.0 % (40.0-70.0) 06/10/21 05:53 Band Neutrophils % 1.0 % 06/10/21 05:53 Lymphocytes % (Manual) 13.0 % (13.4-35.0) L 06/10/21 05:53 Monocytes % (Manual) 17.0 % (0.0-7.3) H 06/10/21 05:53 Eosinophils % (Manual) 3.0 % (0.0-4.3) 06/10/21 05:53 Nucleated RBC % Not Reportable 06/10/21 05:53 Seg Neutrophils # 2.4 K/mm3 (1.8-7.7) 06/12/21 05:38 Seg Neutrophils # Man 3.8 K/mm3 (1.8-7.7) 06/10/21 05:53 Band Neutrophils # 0.1 K/mm3 06/10/21 05:53 Lymphocytes # (Manual) 0.8 K/mm3 (1.2-5.4) L 06/10/21 05:53 Abs React Lymphs (Man) 0.0 K/mm3 06/10/21 05:53 Monocytes # (Manual) 1.0 K/mm3 (0.0-0.8) H 06/10/21 05:53 Eosinophils # (Manual) 0.2 K/mm3 (0.0-0.4) 06/10/21 05:53 Basophils # (Manual) 0.0 K/mm3 (0.0-0.1) 06/10/21 05:53 Metamyelocytes # 0.0 K/mm3 06/10/21 05:53 Myelocytes # 0.0 K/mm3 06/10/21 05:53 Promyelocytes # 0.0 K/mm3 06/10/21 05:53 Blast Cells # 0.0 K/mm3 06/10/21 05:53 WBC Morphology Not Reportable 06/10/21 05:53 Hypersegmented Neuts Not Reportable 06/10/21 05:53 Hyposegmented Neuts Not Reportable 06/10/21 05:53 Hypogranular Neuts Not Reportable 06/10/21 05:53 Smudge Cells Not Reportable 06/10/21 05:53 Toxic Granulation Not Reportable 06/10/21 05:53 Toxic Vacuolation Not Reportable 06/10/21 05:53 Dohle Bodies Not Reportable 06/10/21 05:53 Pelger-Huet Anomaly Not Reportable 06/10/21 05:53 Ubaldo Rods Not Reportable 06/10/21 05:53 Platelet Estimate Consistent w auto 06/10/21 05:53 Clumped Platelets Not Reportable 06/10/21 05:53 Plt Clumps, EDTA Not Reportable 06/10/21 05:53 Large Platelets Not Reportable 06/10/21 05:53 Giant Platelets Not Reportable 06/10/21 05:53 Platelet Satelliting Not Reportable 06/10/21 05:53 Plt Morphology Comment Not Reportable 06/10/21 05:53 RBC Morphology Not Reportable 06/10/21 05:53 Dimorphic RBCs Not Reportable 06/10/21 05:53 Polychromasia Not Reportable 06/10/21 05:53 Hypochromasia 2+ 06/10/21 05:53 Poikilocytosis Not Reportable 06/10/21 05:53 Anisocytosis Not Reportable 06/10/21 05:53 Microcytosis Not Reportable 06/10/21 05:53 Macrocytosis Not Reportable 06/10/21 05:53 Spherocytes Not Reportable 06/10/21 05:53 Pappenheimer Bodies Not Reportable 06/10/21 05:53 Sickle Cells Not Reportable 06/10/21 05:53 Target Cells Not Reportable 06/10/21 05:53 Tear Drop Cells Not Reportable 06/10/21 05:53 Ovalocytes Not Reportable 06/10/21 05:53 Helmet Cells Not Reportable 06/10/21 05:53 Rangel-Ranshaw Bodies Not Reportable 06/10/21 05:53 [place] Rings Not Reportable 06/10/21 05:53 Stacey Cells Not Reportable 06/10/21 05:53 Bite Cells Not Reportable 06/10/21 05:53 Crenated Cell Not Reportable 06/10/21 05:53 Elliptocytes Not Reportable 06/10/21 05:53 Acanthocytes (Spur) Not Reportable 06/10/21 05:53 Rouleaux Not Reportable 06/10/21 05:53 Hemoglobin C Crystals Not Reportable 06/10/21 05:53 Schistocytes Not Reportable 06/10/21 05:53 Malaria parasites Not Reportable 06/10/21 05:53 Torrey Bodies Not Reportable 06/10/21 05:53 Hem Pathologist Commnt No 06/10/21 05:53 PT 13.0 Sec. (12.2-14.9) 06/09/21 17:29 INR 0.92 (0.87-1.13) 06/09/21 17:29 VBG pH 7.276 (7.320-7.420) L 06/09/21 17:29 Sodium 144 mmol/L (137-145) 06/12/21 05:38 Potassium 3.8 mmol/L (3.6-5.0) 06/12/21 05:38 Chloride 103.3 mmol/L (98-107) 06/12/21 05:38 Carbon Dioxide 30 mmol/L (22-30) 06/12/21 05:38 Anion Gap 15 mmol/L 06/12/21 05:38 BUN 22 mg/dL (7-17) H 06/12/21 05:38 Creatinine 3.0 mg/dL (0.6-1.2) H 06/12/21 05:38 Estimated GFR 19 ml/min 06/12/21 05:38 BUN/Creatinine Ratio 7 % 06/12/21 05:38 Glucose 64 mg/dL (65-100) L 06/12/21 05:38 POC Glucose 90 mg/dL (70-105) 06/09/21 17:10 Hemoglobin A1c 4.9 % (4-6) 06/11/21 06:24 Lactic Acid 0.90 mmol/L (0.7-2.0) 06/09/21 17:29 Calcium 9.1 mg/dL (8.4-10.2) 06/12/21 05:38 Phosphorus 2.50 mg/dL (2.5-4.5) 06/12/21 05:38 Magnesium 2.00 mg/dL (1.7-2.3) 06/12/21 05:38 Total Bilirubin 0.30 mg/dL (0.1-1.2) 06/11/21 23:03 AST 8 units/L (5-40) 06/11/21 23:03 ALT 6 units/L (7-56) L 06/11/21 23:03 Alkaline Phosphatase 79 units/L (35-129) 06/11/21 23:03 Total Protein 6.4 g/dL (6.3-8.2) 06/11/21 23:03 Albumin 3.0 g/dL (3.9-5) L 06/11/21 23:03 Albumin/Globulin Ratio 0.9 % 06/11/21 23:03 Urine Color Yellow (Yellow) 06/09/21 17:33 Urine Turbidity Clear (Clear) 06/09/21 17:33 Urine pH 5.0 (5.0-7.0) 06/09/21 17:33 Ur Specific [place] 1.012 (1.003-1.030) 06/09/21 17:33 Urine Protein 30 mg/dl mg/dL (Negative) 06/09/21 17:33 Urine Glucose (UA) Neg mg/dL (Negative) 06/09/21 17:33 Urine Ketones Neg mg/dL (Negative) 06/09/21 17:33 Urine Blood Neg (Negative) 06/09/21 17:33 Urine Nitrite Neg (Negative) 06/09/21 17:33 Urine Bilirubin Neg (Negative) 06/09/21 17:33 Urine Urobilinogen < 2.0 mg/dL (<2.0) 06/09/21 17:33 Ur Leukocyte Esterase Neg (Negative) 06/09/21 17:33 Urine WBC (Auto) 3.0 /HPF (0.0-6.0) 06/09/21 17:33 Urine RBC (Auto) 2.0 /HPF (0.0-6.0) 06/09/21 17:33 Urine Mucus Few /HPF 06/09/21 17:33 Hepatitis A IgM Ab Non-reactive (NonReactive) 06/10/21 05:53 Hep Bs Antigen Nonreactive (Negative) 06/10/21 05:53 Hep B Core IgM Ab Non-reactive (NonReactive) 06/10/21 05:53 Hepatitis C Antibody Non-reactive (NonReactive) 06/10/21 05:53 Blood Type A POSITIVE 06/10/21 08:48 Antibody Screen Negative 06/10/21 08:48 Crossmatch See Detail 06/10/21 08:48 Microbiology: Microbiology 06/09/21 13:53 Peripheral/Venous Blood Culture - Preliminary NO GROWTH AFTER 72 HOURS 06/09/21 13:53 Peripheral/Venous Blood Culture - Preliminary NO GROWTH AFTER 72 HOURS 06/09/21 Unknown Urine,[place] Urine Culture - Final NO GROWTH AFTER 48 HOURS [place]/IV: Voiding Method External Female Catheter Active Medications - Current Medications Current Medications: Generic Name Dose Route Start Last Admin Trade Name Freq PRN Reason Stop Dose Admin Acetaminophen 650 mg 06/10/21 00:09 Acetaminophen 325 Mg Tab PO Q4H PRN Pain MILD(1-3)/Fever >100.5/DRAKE Clopidogrel Bisulfate 75 mg 06/10/21 10:00 06/12/21 09:29 Clopidogrel 75 Mg Tab PO 75 mg QDAY CONNOR Administration Divalproex Sodium 750 mg 06/10/21 10:00 06/12/21 09:[address] 250 Mg Tab PO 750 mg BID CONNOR Administration Hydromorphone HCl 0.5 mg 06/10/21 00:12 Hydromorphone 1 Mg/1 Ml Inj IV Q3H PRN Pain , Severe (7-10) Sodium Chloride 100 mls @ 999 mls/hr 06/09/21 16:40 Nacl 0.9% IV BIANCA PRN Hypotension Levofloxacin/Dextrose 500 mg in 100 mls @ 100 mls/hr 06/10/21 01:00 06/12/21 00:33 Levaquin 500mg/100ml IV 100 mls/hr Q48H CONNOR Administration Sodium Chloride 100 mls @ 999 mls/hr 06/11/21 11:52 Nacl 0.9% IV BIANCA PRN Hypotension Lorazepam 1 mg 06/10/21 00:09 Lorazepam 1 Mg Tab PO Q8H PRN Anxiety Memantine 5 mg 06/10/21 10:00 06/12/21 09:29 Memantine 5 Mg Tab PO 5 mg DAILY CONNOR Administration Metoclopramide HCl 2.5 mg 06/10/21 00:30 Metoclopramide 10 Mg/2 Ml Inj IV Q6H PRN Nausea And Vomiting Midodrine 10 mg 06/10/21 08:00 06/12/21 13:53 Midodrine 5 Mg Tab PO Not Given TID CONNOR Ondansetron HCl 4 mg 06/10/21 00:12 Ondansetron 4 Mg/2 Ml Inj IV Q8H PRN Nausea And Vomiting Oxycodone/Acetaminophen 1 tab 06/10/21 00:12 Oxycodone /Acetaminophen 5-325mg Tab PO Q6H PRN Pain, Moderate (4-6) Pantoprazole Sodium 40 mg 06/10/21 10:00 06/12/21 09:28 Pantoprazole 40 Mg Tab PO 40 mg DAILY CONNOR Administration Risperidone 0.5 mg 06/10/21 10:00 06/12/21 09:28 Risperidone 0.25 Mg Tab PO 0.5 mg BID CONNOR Administration Sevelamer Carbonate 800 mg 06/10/21 08:00 06/12/21 13:53 Sevelamer Carbonate 800 Mg Tab PO Not Given TIDWM CONNOR Sodium Bicarbonate 1,300 mg 06/09/21 20:00 06/12/21 13:53 Sodium Bicarbonate 650 Mg Tab PO Not Given TID CONNOR Sodium Chloride 10 ml 06/10/21 10:00 06/12/21 09:29 Sodium Chloride 0.9% 10 Ml Flush Syringe IV 10 ml BID CONNOR Administration Sodium Chloride 10 ml 06/10/21 00:12 Sodium Chloride 0.9% 10 Ml Flush Syringe IV PRN PRN LINE FLUSH Sodium Polystyrene Sulfonate 15 gm 06/10/21 17:00 06/12/21 09:30 Sodium Polystyrene 15 Gm/60 Ml Oral Liqd PO 15 gm QDAY CONNOR Administration Nutrition/Malnutrition Assess - Dietary Evaluation Nutrition/Malnutrition Findings: Nutrition Notes Start: 06/11/21 10:50 Freq: Status: Active Protocol: Document 06/11/21 10:50 CW (Rec: 06/11/21 11:01 CW [id number]) Nutrition Notes Current Diagnosis CKD (stage V CKD),Hypertension Other Pertinent Diagnosis anemia, on HD, GERD, Dementia, schizophernia, bipolar Current Diet Renal Labs/Tests BUN 58 Cr 5.9 HgbA1c 4.9 Pertinent Medications reviewed Height 5 ft 5 in Weight 74.843 kg [place] Body Weight (kg) 56.81 BMI 27.4 Weight change and time frame Weight fluctuating x 5 months within UBW range, likely related to fluid status Subjective/Other Information RN screen for skin risk. Kale score 13. Pt consumed 25% of meals this morning and refused previous meals. Pt currently unavailable d/t being in HD. Burn Absent Trauma Absent Current % PO Negligible Minimum of two criteria No Reduced Mis Manager Strength Measurably Reduced (severe) #2 Nutrition Diagnosis Increased nutrient needs ( specify in comment below) Comments: protein Etiology renal insufficency As Evidenced by Signs and Symptoms pt on HD #1 Nutrition Diagnosis Inadequate energy intake As Evidenced by Signs and Symptoms pt refusal of meals Is patient on ventilator? No Is Patient Ambulatory and/or Out of Bed No REE-([facility]-confined to bed) [phone] Calculation Used for Recommendations [facility] Additional Notes protein needs: >90 (>1.2g/kgBW ) Fluid needs: 1000 - 1500 ml/ day or per MD Nutrition Intervention Change Diet Order: Continue current diet Add Supplement/Snack (indicate name/kcal Nepro BID /protein ) Provides kCal: 850 Provides Protein (gm) 38 Goal #1 Meet at least 75% of EER via PO Anticipated Discharge Needs: Renal diet Follow-Up By: 06/13/21 Additional Comments F/U intakes, ONS tolerance, nutritional interview - Attestation Statement I have reviewed and agreed w/ Malnutrition eval & tx plan: Yes
--- NOTE | 2021-06-12 17:19 | Progress Note ---
Assessment and Plan Assessment - End-stage renal disease on hemodialysis - Hypertension - Anemia of ESRD - Hyperparathyroidism - Hyperphosphatemia - LUE swelling Recommendations - Continue HD TTS - Assess daily for needs for additional sessions - Continue home antihypertensives - Transfuse for hgb < 7 - Epogen with HD - Continue phosphorus binders - ESRD diet with 1.4 g/kg per day protein - Renally dose medication for creatinine clearance less than 15 cc/min - Needs to be evaluated by vascular within 2 weeks of discharge to assess appropriateness for resuming graft access and removal of permcath Subjective Date of service: 06/12/21 Principal diagnosis: Graft malfunction Interval history: Patient was seen for her renal issues Nursing, interdisciplinary and consult notes were reviewed Vitals, input and output, medications and labs were reviewed In a pleasant mood this morning Objective - Exam Narrative Exam: General: No acute distress HEENT: Oral mucosa moist Neck: Supple, no JVD Chest: Clear to auscultation bilaterally Heart: RRR, S1 and S2, no pericardial rub Abdomen: Soft, nontender, no renal bruit Extremity: No peripheral cyanosis, edema Neurological: Alert, awake Dermatology: No skin rash Psych: Calm, cooperative Musculoskeletal: No joint effusion - Vital Signs Vital signs: Vital Signs - 12hr 06/12/21 06/12/21 06/12/21 06:29 08:39 08:50 Temperature 98.2 F 97.3 F L Pulse Rate 93 H 94 H 89 Pulse Rate [ From Monitor] Respiratory 18 20 Rate Blood Pressure 125/56 Blood Pressure 122/61 [Right] O2 Sat by Pulse 96 99 Oximetry 06/12/21 06/12/21 09:00 11:46 Temperature 98.3 F Pulse Rate 74 Pulse Rate [ 89 From Monitor] Respiratory 20 20 Rate Blood Pressure 108/51 Blood Pressure [Right] O2 Sat by Pulse 94 100 Oximetry - Lab 06/12/21 05:38 06/12/21 05:38 Most recent lab results Calcium 9.1 mg/dL (8.4-10.2) 06/12/21 05:38 Phosphorus 2.50 mg/dL (2.5-4.5) 06/12/21 05:38 Magnesium 2.00 mg/dL (1.7-2.3) 06/12/21 05:38 Medications & Allergies - Medications Allergies/Adverse Reactions: Allergies buspirone [From BuSpar] Allergy (Verified 04/28/21 15:16) Unknown Penicillins Allergy (Verified 02/26/21 12:38) Rash corn Adverse Reaction (Verified 02/26/21 12:38) Unknown Home Medications: Home Medications Medication Instructions Recorded Confirmed Last Taken Type Acetaminophen [Acetaminophen TAB] 650 mg PO Q4H PRN tablet 06/03/19 06/09/21 05/31/21 Rx LORazepam [Ativan] 1 mg PO DAILY 08/20/19 06/09/21 06/01/21 06:00 History Memantine Xr [Namenda Xr] 5 mg PO DAILY 08/20/19 06/09/21 05/31/21 History Midodrine [Proamatine] 10 mg PO TID 08/20/19 06/09/21 05/31/21 History QUEtiapine [SEROquel] 400 mg PO BID 08/20/19 06/09/21 05/31/21 History Sevelamer Carbonate [Renvela] 0.8 gram PO TIDWM 09/02/20 06/09/21 05/31/21 History Divalproex [Depakote Dr] 750 mg PO BID tablet 09/13/20 06/09/21 06/01/21 06:00 Rx Potassium Chloride [K-Dur] 10 meq PO DAILY 02/26/21 06/09/21 05/31/21 History risperiDONE [RisperDAL] 0.5 mg PO BID 02/26/21 06/09/21 05/31/21 History Pantoprazole [Protonix TAB] 40 mg PO DAILY 04/29/21 06/09/21 05/31/21 History HYDROcodone/APAP 5-325 [[place] 1 each PO Q4HR PRN #30 tablet 05/18/21 06/09/21 Unknown Rx 5-325 mg TAB] Clopidogrel [Plavix] 75 mg PO QDAY #90 tablet 06/01/21 06/09/21 Unknown Rx Active Medications: Generic Name Dose Route Start Last Admin Trade Name Freq PRN Reason Stop Dose Admin Acetaminophen 650 mg 06/10/21 00:09 Acetaminophen 325 Mg Tab PO Q4H PRN Pain MILD(1-3)/Fever >100.5/DRAKE Clopidogrel Bisulfate 75 mg 06/10/21 10:00 06/12/21 09:29 Clopidogrel 75 Mg Tab PO 75 mg QDAY CONNOR Administration Divalproex Sodium 750 mg 06/10/21 10:00 06/12/21 09:[address] 250 Mg Tab PO 750 mg BID CONNOR Administration Hydromorphone HCl 0.5 mg 06/10/21 00:12 Hydromorphone 1 Mg/1 Ml Inj IV Q3H PRN Pain , Severe (7-10) Sodium Chloride 100 mls @ 999 mls/hr 06/09/21 16:40 Nacl 0.9% IV BIANCA PRN Hypotension Levofloxacin/Dextrose 500 mg in 100 mls @ 100 mls/hr 06/10/21 01:00 06/12/21 00:33 Levaquin 500mg/100ml IV 100 mls/hr Q48H CONNOR Administration Sodium Chloride 100 mls @ 999 mls/hr 06/11/21 11:52 Nacl 0.9% IV BIANCA PRN Hypotension Lorazepam 1 mg 06/10/21 00:09 Lorazepam 1 Mg Tab PO Q8H PRN Anxiety Memantine 5 mg 06/10/21 10:00 06/12/21 09:29 Memantine 5 Mg Tab PO 5 mg DAILY CONNOR Administration Metoclopramide HCl 2.5 mg 06/10/21 00:30 Metoclopramide 10 Mg/2 Ml Inj IV Q6H PRN Nausea And Vomiting Midodrine 10 mg 06/10/21 08:00 06/12/21 13:53 Midodrine 5 Mg Tab PO Not Given TID CONNOR Ondansetron HCl 4 mg 06/10/21 00:12 Ondansetron 4 Mg/2 Ml Inj IV Q8H PRN Nausea And Vomiting Oxycodone/Acetaminophen 1 tab 06/10/21 00:12 Oxycodone /Acetaminophen 5-325mg Tab PO Q6H PRN Pain, Moderate (4-6) Pantoprazole Sodium 40 mg 06/10/21 10:00 06/12/21 09:28 Pantoprazole 40 Mg Tab PO 40 mg DAILY CONNOR Administration Risperidone 0.5 mg 06/10/21 10:00 06/12/21 09:28 Risperidone 0.25 Mg Tab PO 0.5 mg BID CONNOR Administration Sevelamer Carbonate 800 mg 06/10/21 08:00 06/12/21 17:09 Sevelamer Carbonate 800 Mg Tab PO Not Given TIDWM CONNOR Sodium Bicarbonate 1,300 mg 06/09/21 20:00 06/12/21 13:53 Sodium Bicarbonate 650 Mg Tab PO Not Given TID CONNOR Sodium Chloride 10 ml 06/10/21 10:00 06/12/21 09:29 Sodium Chloride 0.9% 10 Ml Flush Syringe IV 10 ml BID CONNOR Administration Sodium Chloride 10 ml 06/10/21 00:12 Sodium Chloride 0.9% 10 Ml Flush Syringe IV PRN PRN LINE FLUSH Sodium Polystyrene Sulfonate 15 gm 06/10/21 17:00 06/12/21 09:30 Sodium Polystyrene 15 Gm/60 Ml Oral Liqd PO 15 gm QDAY CONNOR Administration
[2021-06-13 06:24] LABS: Basophils # (Auto) 0.1 K/mm3 (0.0-0.1); Basophils % (Auto) 1.1 % (0.0-1.8); Eosinophils # (Auto) 0.2 K/mm3 (0.0-0.4); Eosinophils % (Auto) 4.1 % (0.0-4.3); Hemoglobin 9.1 gm/dl (10.1-14.3); Lymphocytes # (Auto) 1.6 K/mm3 (1.2-5.4); Lymphocytes % (Auto) 29.9 % (13.4-35.0); Mean Corpuscular HGB Conc 33 % (30-34); Mean Corpuscular Volume 86 fl (79-97); Monocytes # (Auto) 0.7 K/mm3 (0.0-0.8); Monocytes % (Auto) 12.3 % (0.0-7.3); Platelet Count 184 K/mm3 (140-440); Red Blood Count 3.25 M/mm3 (3.65-5.03); Red Cell Distribution Width 17.7 % (13.2-15.2)
[2021-06-13 06:42] LABS: Calcium 9.6 mg/dL (8.4-10.2)
--- NOTE | 2021-06-13 09:34 | Vascular Lab Report ---
VL ARTERIAL DUPLEX UE LT INDICATION / CLINICAL INFORMATION: Recent bypass. Left arm pain/swelling COMPARISON: None available. FINDINGS: The study is technically difficult due to patient positioning, swelling and pain. Only a limited exam ination could be performed. There is a 6.1 cm ovoid hypoechoic solid or complex cystic mass in the left mid upper arm. No interna l blood flow is seen on Doppler exam and the findings are probably related to hematoma. There is a biphasic arterial waveform in the left radial artery. The left ulnar artery is not visuali zed. The left brachial interposition graft is not seen. Signer Name: Forrest Patel MD Signed: 06/09/2021 8:31 PM Workstation Name: [id number]
--- NOTE | 2021-06-13 10:39 | Progress Note ---
Subjective Date of service: 06/13/21 Principal diagnosis: Graft malfunction Interval history: Assessment - End-stage renal disease on hemodialysis - Hypertension - Anemia of ESRD - Hyperparathyroidism - Hyperphosphatemia - LUE swelling Recommendations - Continue HD TTS - Assess daily for needs for additional sessions - Continue home antihypertensives - Transfuse for hgb < 7 - Epogen with HD - Continue phosphorus binders - ESRD diet with 1.4 g/kg per day protein - Renally dose medication for creatinine clearance less than 15 cc/min - Needs to be evaluated by vascular within 2 weeks of discharge to assess appropriateness for resuming graft access and removal of permcath Subjective Principal diagnosis: Graft malfunction Interval history: Patient was seen for her renal issues Nursing, interdisciplinary and consult notes were reviewed Vitals, input and output, medications and labs were reviewed Objective - Exam Narrative Exam: General: No acute distress HEENT: Oral mucosa moist Neck: Supple, no JVD Chest: Clear to auscultation bilaterally Heart: RRR, S1 and S2, no pericardial rub Abdomen: Soft, nontender, no renal bruit Extremity: No peripheral cyanosis, edema Neurological: Alert, awake Dermatology: No skin rash Psych: Calm, cooperative Objective - Vital Signs Vital signs: Vital Signs - 12hr 06/12/21 06/13/21 06/13/21 23:00 00:10 03:24 Temperature 98.4 F 97.4 F L Pulse Rate 82 62 Respiratory 16 18 Rate Blood Pressure 126/63 120/59 O2 Sat by Pulse 79 L 94 63 L Oximetry 06/13/21 03:25 Temperature Pulse Rate Respiratory Rate Blood Pressure O2 Sat by Pulse 96 Oximetry - Lab 06/13/21 06:08 06/13/21 06:08 Most recent lab results Calcium 9.6 mg/dL (8.4-10.2) 06/13/21 06:08 Phosphorus 3.40 mg/dL (2.5-4.5) D 06/13/21 06:08 Magnesium 2.00 mg/dL (1.7-2.3) 06/13/21 06:08 Medications & Allergies - Medications Allergies/Adverse Reactions: Allergies buspirone [From BuSpar] Allergy (Verified 04/28/21 15:16) Unknown Penicillins Allergy (Verified 02/26/21 12:38) Rash corn Adverse Reaction (Verified 02/26/21 12:38) Unknown Home Medications: Home Medications Medication Instructions Recorded Confirmed Last Taken Type LORazepam [Ativan] 1 mg PO DAILY 08/20/19 06/09/21 06/01/21 06:00 History Memantine Xr [Namenda Xr] 5 mg PO DAILY 08/20/19 06/09/21 05/31/21 History Midodrine [Proamatine] 10 mg PO TID 08/20/19 06/09/21 05/31/21 History QUEtiapine [SEROquel] 400 mg PO BID 08/20/19 06/09/21 05/31/21 History Sevelamer Carbonate [Renvela] 0.8 gram PO TIDWM 09/02/20 06/09/21 05/31/[address] [Sarina Serrano] 750 mg PO BID tablet 09/13/20 06/09/21 06/01/21 06:00 Rx risperiDONE [RisperDAL] 0.5 mg PO BID 02/26/21 06/09/21 05/31/21 History Pantoprazole [Protonix TAB] 40 mg PO DAILY 04/29/21 06/09/21 05/31/21 History HYDROcodone/APAP 5-325 [[place] 1 each PO Q4HR PRN #30 tablet 05/18/21 06/09/21 Unknown Rx 5-325 mg TAB] Clopidogrel [Plavix] 75 mg PO QDAY #90 tablet 06/01/21 06/09/21 Unknown Rx Active Medications: Generic Name Dose Route Start Last Admin Trade Name Bre PRN Reason Stop Dose Admin Acetaminophen 650 mg 06/10/21 00:09 Acetaminophen 325 Mg Tab PO Q4H PRN Pain MILD(1-3)/Fever >100.5/DRAKE Clopidogrel Bisulfate 75 mg 06/10/21 10:00 06/12/21 09:29 Clopidogrel 75 Mg Tab PO 75 mg QDAY CONNOR Administration Divalproex Sodium 750 mg 06/10/21 10:00 06/12/21 22:[address] 250 Mg Tab PO Not Given BID CONNOR Hydromorphone HCl 0.5 mg 06/10/21 00:12 Hydromorphone 1 Mg/1 Ml Inj IV Q3H PRN Pain , Severe (7-10) Sodium Chloride 100 mls @ 999 mls/hr 06/09/21 16:40 Nacl 0.9% IV BIANCA PRN Hypotension Sodium Chloride 100 mls @ 999 mls/hr 06/11/21 11:52 Nacl 0.9% IV BIANCA PRN Hypotension Lorazepam 1 mg 06/10/21 00:09 Lorazepam 1 Mg Tab PO Q8H PRN Anxiety Memantine 5 mg 06/10/21 10:00 06/12/21 09:29 Memantine 5 Mg Tab PO 5 mg DAILY CONNOR Administration Metoclopramide HCl 2.5 mg 06/10/21 00:30 Metoclopramide 10 Mg/2 Ml Inj IV Q6H PRN Nausea And Vomiting Midodrine 10 mg 06/10/21 08:00 06/12/21 22:14 Midodrine 5 Mg Tab PO Not Given TID CONNOR Ondansetron HCl 4 mg 06/10/21 00:12 Ondansetron 4 Mg/2 Ml Inj IV Q8H PRN Nausea And Vomiting Oxycodone/Acetaminophen 1 tab 06/10/21 00:12 Oxycodone /Acetaminophen 5-325mg Tab PO Q6H PRN Pain, Moderate (4-6) Pantoprazole Sodium 40 mg 06/10/21 10:00 06/12/21 09:28 Pantoprazole 40 Mg Tab PO 40 mg DAILY CONNOR Administration Risperidone 0.5 mg 06/10/21 10:00 06/12/21 22:14 Risperidone 0.25 Mg Tab PO Not Given BID CONNOR Sevelamer Carbonate 800 mg 06/10/21 08:00 06/12/21 17:09 Sevelamer Carbonate 800 Mg Tab PO Not Given TIDWM CONNOR Sodium Bicarbonate 1,300 mg 06/09/21 20:00 06/12/21 22:14 Sodium Bicarbonate 650 Mg Tab PO Not Given TID CONNOR Sodium Chloride 10 ml 06/10/21 10:00 06/12/21 09:29 Sodium Chloride 0.9% 10 Ml Flush Syringe IV 10 ml BID CONNOR Administration Sodium Chloride 10 ml 06/10/21 00:12 Sodium Chloride 0.9% 10 Ml Flush Syringe IV PRN PRN LINE FLUSH Sodium Polystyrene Sulfonate 15 gm 06/10/21 17:00 06/12/21 09:30 Sodium Polystyrene 15 Gm/60 Ml Oral Liqd PO 15 gm QDAY CONNOR Administration
[2021-06-13] MEDS: SEVELAMER CARBONATE 800 MG TAB PO SCH ×3 (11:13→18:00)
[2021-06-13] MEDS: MIDODRINE 5 MG TAB PO SCH ×3 (11:13→23:02)
[2021-06-13] MEDS: SODIUM BICARBONATE 650 MG TAB PO SCH ×3 (11:15→20:12)
[2021-06-13] MEDS: CLOPIDOGREL 75 MG TAB PO SCH (11:15)
[2021-06-13] MEDS: MEMANTINE 5 MG TAB PO SCH (11:15)
[2021-06-13] MEDS: PANTOPRAZOLE 40 MG TAB PO SCH (11:15)
[2021-06-13] MEDS: DIVALPROEX DR 250 MG TAB PO SCH ×2 (11:15→23:07)
[2021-06-13] MEDS: SODIUM POLYSTYRENE 15 GM/60 ML ORAL LIQD PO SCH (11:15)
[2021-06-13] MEDS: risperiDONE 0.25 MG TAB PO SCH ×2 (11:16→23:02)
--- NOTE | 2021-06-13 12:44 | Progress Note ---
Assessment and Plan Assessment and plan: #Dialysis AV fistula malfunction-resolved #ESRD on dialysis #Possible surgical site infection-resolved - recent surgical procedure May 2015 with residual swelling of postope rative swelling - recent pseudoaneurysm of brachial artery removed; however, patient continues to have LUE pain and swelling - s/p Doppler of LUE to assess for possible abscess or hematoma -Discontinuing Unasyn. Vascular surgery evaluated patient and endorses no clinical sign of infection. Patient can be seen in vascular clinic in 1 to 2 weeks. -Nephrology consulted. Appreciate recs. Status post hemodialysis on 06/11/2021 #Hypotension-resolved -Blood pressure has resolved after administration of on midodrine #Symptomatic anemia-resolved -Hemoglobin 6.2 (baseline unknown)-->5.6-->9.5 -Likely secondary to anemia of chronic disease -Patient requested transfusion on 06/11/2021. Patient transfused a total of 2 units PRBC with hemodialysis on 06/11/2021 #Insulin-dependent type 2 diabetes mellitus-stable -Pending hemoglobin A1c -We will monitor with SSI until patient requires basal insulin #Seizure disorder-stable #Bipolar disorder (type unknown)-stable #Schizophrenia-stable -Patient records reveal Depakote administration at home. We will continue same regimen -Patient endorses being diagnosed with bipolar disorder and schizophrenia; however, no medications have been identified. Concern is that patient has been off of psychiatric medications for an extended period of time. -Consult placed for geriatric psych; appreciate recs. Currently cooperative and psychiatry has signed off. #DVT prophylaxis -Continue subcutaneous heparin 5000 units every 8 hours #Discharge planning -Patient is cleared medically and ready for discharge. -Patient will be returning back to [facility] and rehab given the fact that she requires total care and does not ambulate. The patient's son (Raymundo) is a heavy duty truck mechanic and would not be able to provide her the adequate care at this point in time. He also requested the patient return back to [facility] and rehab. -Planning for return to [facility] and rehab on 06/13/2021. Ordering coronavirus PCR to be performed in the morning. Disposition Plan: Pending discharge to [facility] rehab as soon as today Disposition Plan: Pending discharge to rehab Total Time Spent with Patient (Minutes): 25 History Interval history: No acute events overnight Hospitalist Physical - Constitutional Vitals: Temp Pulse Resp BP Pulse Ox 97.4 F L 62 18 120/59 96 06/13/21 03:24 06/13/21 03:24 06/13/21 03:24 06/13/21 03:24 06/13/21 03:25 General appearance: Present: no acute distress - EENT Eyes: Present: PERRL, EOM intact ENT: hearing intact, clear oral mucosa, dentition normal - Neck Neck: Present: supple, normal ROM - Respiratory Respiratory effort: normal - Cardiovascular Rhythm: regular Heart Sounds: Present: S1 & S2 - Extremities Extremities: no ischemia, pulses intact, pulses symmetrical, normal temperature Extremity abnormal: edema (Edema of left upper arm at site of aneurysm repair with clean, mildly tender, incision site without dehiscence, purulence, or ischemia present) Peripheral Pulses: within normal limits - Abdominal General gastrointestinal: soft, non-tender, non-distended, normal bowel sounds - Integumentary Integumentary: Present: warm, dry, normal turgor - Psychiatric Psychiatric: appropriate mood/affect, intact judgment & insight, cooperative - Neurologic Neurologic: CNII-XII intact, moves all extremities - Allied Health Allied health notes reviewed: nursing HEART Score - HEART Score EKG: Non-specific Age: > 65 Risk factors: 1-2 risk factors - Critical Actions Critical Actions: 0-3 pts:0.9-1.7%risk of adverse cardiac event.Candidate for discharge Results - Labs CBC & Chem 7: 06/13/21 06:08 06/13/21 06:08 Labs: Laboratory Last Values WBC 5.4 K/mm3 (4.5-11.0) 06/13/21 06:08 RBC 3.25 M/mm3 (3.65-5.03) L 06/13/21 06:08 Hgb 9.1 gm/dl (10.1-14.3) L 06/13/21 06:08 Hct 28.0 % (30.3-42.9) L 06/13/21 06:08 MCV 86 fl (79-97) 06/13/21 06:08 MCH 28 pg (28-32) 06/13/21 06:08 MCHC 33 % (30-34) 06/13/21 06:08 RDW 17.7 % (13.2-15.2) H 06/13/21 06:08 Plt Count 184 K/mm3 (140-440) 06/13/21 06:08 Lymph % (Auto) 29.9 % (13.4-35.0) 06/13/21 06:08 [place] % (Auto) 12.3 % (0.0-7.3) H 06/13/21 06:08 Eos % (Auto) 4.1 % (0.0-4.3) 06/13/21 06:08 Baso % (Auto) 1.1 % (0.0-1.8) 06/13/21 06:08 Lymph # (Auto) 1.6 K/mm3 (1.2-5.4) 06/13/21 06:08 [place] # (Auto) 0.7 K/mm3 (0.0-0.8) 06/13/21 06:08 Eos # (Auto) 0.2 K/mm3 (0.0-0.4) 06/13/21 06:08 Baso # (Auto) 0.1 K/mm3 (0.0-0.1) 06/13/21 06:08 Add Manual Diff Complete 06/10/21 05:53 Total Counted 100 06/10/21 05:53 Seg Neutrophils % 52.6 % (40.0-70.0) 06/13/21 06:08 Seg Neuts % (Manual) 66.0 % (40.0-70.0) 06/10/21 05:53 Band Neutrophils % 1.0 % 06/10/21 05:53 Lymphocytes % (Manual) 13.0 % (13.4-35.0) L 06/10/21 05:53 Monocytes % (Manual) 17.0 % (0.0-7.3) H 06/10/21 05:53 Eosinophils % (Manual) 3.0 % (0.0-4.3) 06/10/21 05:53 Nucleated RBC % Not Reportable 06/10/21 05:53 Seg Neutrophils # 2.8 K/mm3 (1.8-7.7) 06/13/21 06:08 Seg Neutrophils # Man 3.8 K/mm3 (1.8-7.7) 06/10/21 05:53 Band Neutrophils # 0.1 K/mm3 06/10/21 05:53 Lymphocytes # (Manual) 0.8 K/mm3 (1.2-5.4) L 06/10/21 05:53 Abs React Lymphs (Man) 0.0 K/mm3 06/10/21 05:53 Monocytes # (Manual) 1.0 K/mm3 (0.0-0.8) H 06/10/21 05:53 Eosinophils # (Manual) 0.2 K/mm3 (0.0-0.4) 06/10/21 05:53 Basophils # (Manual) 0.0 K/mm3 (0.0-0.1) 06/10/21 05:53 Metamyelocytes # 0.0 K/mm3 06/10/21 05:53 Myelocytes # 0.0 K/mm3 06/10/21 05:53 Promyelocytes # 0.0 K/mm3 06/10/21 05:53 Blast Cells # 0.0 K/mm3 06/10/21 05:53 WBC Morphology Not Reportable 06/10/21 05:53 Hypersegmented Neuts Not Reportable 06/10/21 05:53 Hyposegmented Neuts Not Reportable 06/10/21 05:53 Hypogranular Neuts Not Reportable 06/10/21 05:53 Smudge Cells Not Reportable 06/10/21 05:53 Toxic Granulation Not Reportable 06/10/21 05:53 Toxic Vacuolation Not Reportable 06/10/21 05:53 Dohle Bodies Not Reportable 06/10/21 05:53 Pelger-Huet Anomaly Not Reportable 06/10/21 05:53 Ubaldo Rods Not Reportable 06/10/21 05:53 Platelet Estimate Consistent w auto 06/10/21 05:53 Clumped Platelets Not Reportable 06/10/21 05:53 Plt Clumps, EDTA Not Reportable 06/10/21 05:53 Large Platelets Not Reportable 06/10/21 05:53 Giant Platelets Not Reportable 06/10/21 05:53 Platelet Satelliting Not Reportable 06/10/21 05:53 Plt Morphology Comment Not Reportable 06/10/21 05:53 RBC Morphology Not Reportable 06/10/21 05:53 Dimorphic RBCs Not Reportable 06/10/21 05:53 Polychromasia Not Reportable 06/10/21 05:53 Hypochromasia 2+ 06/10/21 05:53 Poikilocytosis Not Reportable 06/10/21 05:53 Anisocytosis Not Reportable 06/10/21 05:53 Microcytosis Not Reportable 06/10/21 05:53 Macrocytosis Not Reportable 06/10/21 05:53 Spherocytes Not Reportable 06/10/21 05:53 Pappenheimer Bodies Not Reportable 06/10/21 05:53 Sickle Cells Not Reportable 06/10/21 05:53 Target Cells Not Reportable 06/10/21 05:53 Tear Drop Cells Not Reportable 06/10/21 05:53 Ovalocytes Not Reportable 06/10/21 05:53 Helmet Cells Not Reportable 06/10/21 05:53 [place] Bodies Not Reportable 06/10/21 05:53 [place] Rings Not Reportable 06/10/21 05:53 [place] Cells Not Reportable 06/10/21 05:53 Bite Cells Not Reportable 06/10/21 05:53 Crenated Cell Not Reportable 06/10/21 05:53 Elliptocytes Not Reportable 06/10/21 05:53 Acanthocytes (Spur) Not Reportable 06/10/21 05:53 Rouleaux Not Reportable 06/10/21 05:53 Hemoglobin C Crystals Not Reportable 06/10/21 05:53 Schistocytes Not Reportable 06/10/21 05:53 Malaria parasites Not Reportable 06/10/21 05:53 [place] Bodies Not Reportable 06/10/21 05:53 Hem Pathologist Commnt No 06/10/21 05:53 PT 13.0 Sec. (12.2-14.9) 06/09/21 17:29 INR 0.92 (0.87-1.13) 06/09/21 17:29 VBG pH 7.276 (7.320-7.420) L 06/09/21 17:29 Sodium 143 mmol/L (137-145) 06/13/21 06:08 Potassium 3.6 mmol/L (3.6-5.0) 06/13/21 06:08 Chloride 102.6 mmol/L (98-107) 06/13/21 06:08 Carbon Dioxide 31 mmol/L (22-30) H 06/13/21 06:08 Anion Gap 13 mmol/L 06/13/21 06:08 BUN 32 mg/dL (7-17) H 06/13/21 06:08 Creatinine 4.1 mg/dL (0.6-1.2) H 06/13/21 06:08 Estimated GFR 13 ml/min 06/13/21 06:08 BUN/Creatinine Ratio 8 % 06/13/21 06:08 Glucose 89 mg/dL (65-100) 06/13/21 06:08 POC Glucose 90 mg/dL (70-105) 06/09/21 17:10 Hemoglobin A1c 4.9 % (4-6) 06/11/21 06:24 Lactic Acid 0.90 mmol/L (0.7-2.0) 06/09/21 17:29 Calcium 9.6 mg/dL (8.4-10.2) 06/13/21 06:08 Phosphorus 3.40 mg/dL (2.5-4.5) D 06/13/21 06:08 Magnesium 2.00 mg/dL (1.7-2.3) 06/13/21 06:08 Total Bilirubin 0.30 mg/dL (0.1-1.2) 06/11/21 23:03 AST 8 units/L (5-40) 06/11/21 23:03 ALT 6 units/L (7-56) L 06/11/21 23:03 Alkaline Phosphatase 79 units/L (35-129) 06/11/21 23:03 Total Protein 6.4 g/dL (6.3-8.2) 06/11/21 23:03 Albumin 3.0 g/dL (3.9-5) L 06/11/21 23:03 Albumin/Globulin Ratio 0.9 % 06/11/21 23:03 Urine Color Yellow (Yellow) 06/09/21 17:33 Urine Turbidity Clear (Clear) 06/09/21 17:33 Urine pH 5.0 (5.0-7.0) 06/09/21 17:33 Ur Specific [place] 1.012 (1.003-1.030) 06/09/21 17:33 Urine Protein 30 mg/dl mg/dL (Negative) 06/09/21 17:33 Urine Glucose (UA) Neg mg/dL (Negative) 06/09/21 17:33 Urine Ketones Neg mg/dL (Negative) 06/09/21 17:33 Urine Blood Neg (Negative) 06/09/21 17:33 Urine Nitrite Neg (Negative) 06/09/21 17:33 Urine Bilirubin Neg (Negative) 06/09/21 17:33 Urine Urobilinogen < 2.0 mg/dL (<2.0) 06/09/21 17:33 Ur Leukocyte Esterase Neg (Negative) 06/09/21 17:33 Urine WBC (Auto) 3.0 /HPF (0.0-6.0) 06/09/21 17:33 Urine RBC (Auto) 2.0 /HPF (0.0-6.0) 06/09/21 17:33 Urine Mucus Few /HPF 06/09/21 17:33 Hepatitis A IgM Ab Non-reactive (NonReactive) 06/10/21 05:53 Hep Bs Antigen Nonreactive (Negative) 06/10/21 05:53 Hep B Core IgM Ab Non-reactive (NonReactive) 06/10/21 05:53 Hepatitis C Antibody Non-reactive (NonReactive) 06/10/21 05:53 Blood Type A POSITIVE 06/10/21 08:48 Antibody Screen Negative 06/10/21 08:48 Crossmatch See Detail 06/10/21 08:48 Microbiology: Microbiology 06/09/21 13:53 Peripheral/Venous Blood Culture - Preliminary NO GROWTH AFTER 72 HOURS 06/09/21 13:53 Peripheral/Venous Blood Culture - Preliminary NO GROWTH AFTER 72 HOURS 06/09/21 Unknown Urine,[place] Urine Culture - Final NO GROWTH AFTER 48 HOURS [place]/IV: Voiding Method External Female Catheter Active Medications - Current Medications Current Medications: Generic Name Dose Route Start Last Admin Trade Name Freq PRN Reason Stop Dose Admin Acetaminophen 650 mg 06/10/21 00:09 Acetaminophen 325 Mg Tab PO Q4H PRN Pain MILD(1-3)/Fever >100.5/DRAKE Clopidogrel Bisulfate 75 mg 06/10/21 10:00 06/13/21 11:15 Clopidogrel 75 Mg Tab PO Not Given QDAY CONNOR Divalproex Sodium 750 mg 06/10/21 10:00 06/13/21 11:[address] 250 Mg Tab PO Not Given BID CONNOR Hydromorphone HCl 0.5 mg 06/10/21 00:12 Hydromorphone 1 Mg/1 Ml Inj IV Q3H PRN Pain , Severe (7-10) Sodium Chloride 100 mls @ 999 mls/hr 06/09/21 16:40 Nacl 0.9% IV BIANCA PRN Hypotension Sodium Chloride 100 mls @ 999 mls/hr 06/11/21 11:52 Nacl 0.9% IV BIANCA PRN Hypotension Lorazepam 1 mg 06/10/21 00:09 Lorazepam 1 Mg Tab PO Q8H PRN Anxiety Memantine 5 mg 06/10/21 10:00 06/13/21 11:15 Memantine 5 Mg Tab PO Not Given DAILY CONNOR Metoclopramide HCl 2.5 mg 06/10/21 00:30 Metoclopramide 10 Mg/2 Ml Inj IV Q6H PRN Nausea And Vomiting Midodrine 10 mg 06/10/21 08:00 06/13/21 11:13 Midodrine 5 Mg Tab PO Not Given TID CONNOR Ondansetron HCl 4 mg 06/10/21 00:12 Ondansetron 4 Mg/2 Ml Inj IV Q8H PRN Nausea And Vomiting Oxycodone/Acetaminophen 1 tab 06/10/21 00:12 Oxycodone /Acetaminophen 5-325mg Tab PO Q6H PRN Pain, Moderate (4-6) Pantoprazole Sodium 40 mg 06/10/21 10:00 06/13/21 11:15 Pantoprazole 40 Mg Tab PO Not Given DAILY CONNOR Risperidone 0.5 mg 06/10/21 10:00 06/13/21 11:16 Risperidone 0.25 Mg Tab PO Not Given BID CONNOR Sevelamer Carbonate 800 mg 06/10/21 08:00 06/13/21 11:13 Sevelamer Carbonate 800 Mg Tab PO Not Given TIDWM CONNOR Sodium Bicarbonate 1,300 mg 06/09/21 20:00 06/13/21 11:15 Sodium Bicarbonate 650 Mg Tab PO Not Given TID CONNOR Sodium Chloride 10 ml 06/10/21 10:00 06/13/21 11:12 Sodium Chloride 0.9% 10 Ml Flush Syringe IV Not Given BID CONNOR Sodium Chloride 10 ml 06/10/21 00:12 Sodium Chloride 0.9% 10 Ml Flush Syringe IV PRN PRN LINE FLUSH Nutrition/Malnutrition Assess - Dietary Evaluation Nutrition/Malnutrition Findings: Nutrition Notes Start: 06/11/21 10:50 Freq: Status: Active Protocol: Document 06/11/21 10:50 CW (Rec: 06/11/21 11:01 CW [id number]) Nutrition Notes Current Diagnosis CKD (stage V CKD),Hypertension Other Pertinent Diagnosis anemia, on HD, GERD, Dementia, schizophernia, bipolar Current Diet Renal Labs/Tests BUN 58 Cr 5.9 HgbA1c 4.9 Pertinent Medications reviewed Height 5 ft 5 in Weight 74.843 kg [place] Body Weight (kg) 56.81 BMI 27.4 Weight change and time frame Weight fluctuating x 5 months within UBW range, likely related to fluid status Subjective/Other Information RN screen for skin risk. Kale score 13. Pt consumed 25% of meals this morning and refused previous meals. Pt currently unavailable d/t being in HD. Burn Absent Trauma Absent Current % PO Negligible Minimum of two criteria No Reduced Dietetic Aide Strength Measurably Reduced (severe) #2 Nutrition Diagnosis Increased nutrient needs ( specify in comment below) Comments: protein Etiology renal insufficency As Evidenced by Signs and Symptoms pt on HD #1 Nutrition Diagnosis Inadequate energy intake As Evidenced by Signs and Symptoms pt refusal of meals Is patient on ventilator? No Is Patient Ambulatory and/or Out of Bed No REE-(Hurley-St. Jeor-confined to bed) 1552.596 Calculation Used for Recommendations Hurley-St or Additional Notes protein needs: >90 (>1.2g/kgBW ) Fluid needs: 1000 - 1500 ml/ day or per MD Nutrition Intervention Change Diet Order: Continue current diet Add Supplement/Snack (indicate name/kcal Nepro BID /protein ) Provides kCal: 850 Provides Protein (gm) 38 Goal #1 Meet at least 75% of EER via PO Anticipated Discharge Needs: Renal diet Follow-Up By: 06/13/21 Additional Comments F/U intakes, ONS tolerance, nutritional interview - Attestation Statement I have reviewed and agreed w/ Malnutrition eval & tx plan: Yes
--- NOTE | 2021-06-13 14:07 | Progress Note ---
Assessment and Plan 65-year-old end-stage renal disease demented female status post interposition graft of the disrupted brachial artery. Patient is demented making care quite complicated. Her dementia and agitation is likely why she developed a hematoma of her left arm. Recommend applying Betadine to the incision line. Follow-up with Dr. Caraballo in 1 to 2 weeks. Subjective Date of service: 06/13/21 Principal diagnosis: Graft malfunction Interval history: Demented, telling me about how she was involved with [employer] and her work life, told sonographers earlier today that she was going to have the Gravity Meter Operator tommy them because she did not want to have an ultrasound performed, and told me she has plans to go out with her son today for lunch and that is why she is not going to eat the rest of her food. Palpable left radial pulse. Bruising is from hematoma of the left forearm and upper arm. Patient is moving her arms wildly and immediately postoperative did the same which is why she has a left arm hematoma. Recommend applying Betadine to the incision line to prevent infection. Objective - Constitutional Vitals: Vital Signs - 12hr 06/13/21 06/13/21 06/13/21 03:24 03:25 11:43 Temperature 97.4 F L 98.3 F Pulse Rate 62 87 Respiratory 18 20 Rate Blood Pressure 120/59 112/63 O2 Sat by Pulse 63 L 96 96 Oximetry General appearance: Present: other (Demented, wide movements with her arms) - EENT Eyes: EOM intact ENT: hearing intact - Respiratory Respiratory effort: normal Extremities: pulses intact (Left upper extremity), abnormal (see subjective) Extremity abnormal: edema (1-2+ edema of the left upper extremity) - Psychiatric Psychiatric: agitated (Demented) - Labs CBC & Chem 7: 06/13/21 06:08 06/13/21 06:08 Labs: Abnormal lab results 06/13/21 06/13/21 Range/Units 06:08 06:08 RBC 3.25 L (3.65-5.03) M/mm3 Hgb 9.1 L (10.1-14.3) gm/dl Hct 28.0 L (30.3-42.9) % RDW 17.7 H (13.2-15.2) % [place] % (Auto) 12.3 H (0.0-7.3) % Carbon Dioxide 31 H (22-30) mmol/L BUN 32 H (7-17) mg/dL Creatinine 4.1 H (0.6-1.2) mg/dL Medications & Allergies - Medications Allergies/Adverse Reactions: Allergies buspirone [From BuSpar] Allergy (Verified 04/28/21 15:16) Unknown Penicillins Allergy (Verified 02/26/21 12:38) Rash corn Adverse Reaction (Verified 02/26/21 12:38) Unknown Home Medications: Home Medications Medication Instructions Recorded Confirmed Last Taken Type LORazepam [Ativan] 1 mg PO DAILY 08/20/19 06/09/21 06/01/21 06:00 History Memantine Xr [Namenda Xr] 5 mg PO DAILY 08/20/19 06/09/21 05/31/21 History Midodrine [Proamatine] 10 mg PO TID 08/20/19 06/09/21 05/31/21 History QUEtiapine [SEROquel] 400 mg PO BID 08/20/19 06/09/21 05/31/21 History Sevelamer Carbonate [Renvela] 0.8 gram PO TIDWM 09/02/20 06/09/21 05/31/[address] [Sarina Serrano] 750 mg PO BID tablet 09/13/20 06/09/21 06/01/21 06:00 Rx risperiDONE [RisperDAL] 0.5 mg PO BID 02/26/21 06/09/21 05/31/21 History Pantoprazole [Protonix TAB] 40 mg PO DAILY 04/29/21 06/09/21 05/31/21 History HYDROcodone/APAP 5-325 [[place] 1 each PO Q4HR PRN #30 tablet 05/18/21 06/09/21 Unknown Rx 5-325 mg TAB] Clopidogrel [Plavix] 75 mg PO QDAY #90 tablet 06/01/21 06/09/21 Unknown Rx Active Medications: Generic Name Dose Route Start Last Admin Trade Name Freq PRN Reason Stop Dose Admin Acetaminophen 650 mg 06/10/21 00:09 Acetaminophen 325 Mg Tab PO Q4H PRN Pain MILD(1-3)/Fever >100.5/DRAKE Clopidogrel Bisulfate 75 mg 06/10/21 10:00 06/13/21 11:15 Clopidogrel 75 Mg Tab PO Not Given QDAY CONNOR Divalproex Sodium 750 mg 06/10/21 10:00 06/13/21 11:[address] 250 Mg Tab PO Not Given BID CONNOR Hydromorphone HCl 0.5 mg 06/10/21 00:12 Hydromorphone 1 Mg/1 Ml Inj IV Q3H PRN Pain , Severe (7-10) Sodium Chloride 100 mls @ 999 mls/hr 06/09/21 16:40 Nacl 0.9% IV BIANCA PRN Hypotension Sodium Chloride 100 mls @ 999 mls/hr 06/11/21 11:52 Nacl 0.9% IV BIANCA PRN Hypotension Lorazepam 1 mg 06/10/21 00:09 Lorazepam 1 Mg Tab PO Q8H PRN Anxiety Memantine 5 mg 06/10/21 10:00 06/13/21 11:15 Memantine 5 Mg Tab PO Not Given DAILY [facility] Metoclopramide HCl 2.5 mg 06/10/21 00:30 Metoclopramide 10 Mg/2 Ml Inj IV Q6H PRN Nausea And Vomiting Midodrine 10 mg 06/10/21 08:00 06/13/21 11:13 Midodrine 5 Mg Tab PO Not Given TID [facility] Ondansetron HCl 4 mg 06/10/21 00:12 Ondansetron 4 Mg/2 Ml Inj IV Q8H PRN Nausea And Vomiting Oxycodone/Acetaminophen 1 tab 06/10/21 00:12 Oxycodone /Acetaminophen 5-325mg Tab PO Q6H PRN Pain, Moderate (4-6) Pantoprazole Sodium 40 mg 06/10/21 10:00 06/13/21 11:15 Pantoprazole 40 Mg Tab PO Not Given DAILY [facility] Risperidone 0.5 mg 06/10/21 10:00 06/13/21 11:16 Risperidone 0.25 Mg Tab PO Not Given BID CONNOR Sevelamer Carbonate 800 mg 06/10/21 08:00 06/13/21 11:13 Sevelamer Carbonate 800 Mg Tab PO Not Given TIDWM [facility]NOR Sodium Bicarbonate 1,300 mg 06/09/21 20:00 06/13/21 11:15 Sodium Bicarbonate 650 Mg Tab PO Not Given TID [facility]NOR Sodium Chloride 10 ml 06/10/21 10:00 06/13/21 11:12 Sodium Chloride 0.9% 10 Ml Flush Syringe IV Not Given BID CONNOR Sodium Chloride 10 ml 06/10/21 00:12 Sodium Chloride 0.9% 10 Ml Flush Syringe IV PRN PRN LINE FLUSH HEART Score - HEART Score EKG: Non-specific Age: > 65 Risk factors: 1-2 risk factors - Critical Actions Critical Actions: 0-3 pts:0.9-1.7%risk of adverse cardiac event.Candidate for discharge
[2021-06-13 23:39] VITALS: BP 106/64
[2021-06-14 05:21] LABS: Calcium 9.5 mg/dL (8.4-10.2)
--- NOTE | 2021-06-14 16:04 | Discharge Summary ---
Providers - Providers Date of Admission: 06/09/21 19:08 Date of discharge: 06/14/21 Attending physician: MIGUEL BOLAND MD 06/09/21 14:07 Consult to Physician [CONS] Urgent Comment: Consulting Provider: LEONORA SOTOMAYOR Physician Instructions: Reason For Exam: Postop evaluation/left arm pain 06/09/21 16:56 Consult to Physician [CONS] Urgent Comment: Consulting Provider: CHRIS GARDNER Physician Instructions: Reason For Exam: Hyperkalemia, needs dialysis 06/10/21 11:33 Consult Geriatric-Psych [CONS] Routine Consulting Provider: Reason For Exam: Schizophrenia and bipolar +/- dementia 06/11/21 07:26 Consult to Ethics Committee [CONS] Urgent Reason For Exam: Psych patient declining HD + blood transfusion. Primary care physician: PARA PROFESSIONAL Hospitalization Condition: Fair Hospital course: 55-year-old female who presented with left upper extremity swelling after AV fistula creation on 06/01. She was admitted for symptomatic anemia and AV fistula malfunction. She was started on empiric antibiotics. Patient was dialyzed by nephrology. Psychiatry was consulted for history of schizophrenia and bipolar disorder. She was transfused 1 unit of packed cells for symptomatic anemia. She refused various studies including ultrasound of her left upper extremity. She was discharged back to [facility] facility in stable condition. Disposition: 03 ALF FACILITY Final Discharge Diagnosis (Prints w/discharge instructions): AV fistula mal function. Acute on chronic anemia. Sepsis. Hypotension Time spent for discharge: 10 minutes Core Measure Documentation - Palliative Care Palliative Care/ Comfort Measures: Not Applicable - Core Measures Any of the following diagnoses?: none Exam - Physical Exam Narrative exam: GENERAL: Well-developed well-nourished. Lying in bed in no acute distress. CHEST/LUNGS: CTAB on room air HEART/CARDIOVASCULAR: RRR. No murmur, rubs or gallops appreciated. ABDOMEN: +BS. NT/ND. NEURO: No focal motor deficit. MUSCULOSKELETAL: No joint effusion EXTREMITIES:Left upper extremity edema at site of aneurysm repair, clean dry with drainage - Constitutional Vitals: Temp Pulse Resp BP Pulse Ox 98.2 F 97 H 18 106/64 94 06/13/21 23:04 06/13/21 23:04 06/13/21 23:04 06/13/21 23:04 06/14/21 00:00 Plan Health Concerns: Return to emergency room if you experience high fevers, chills, chest pain/chest pressure, worsening shortness of breath, confusion, extreme weakness, or bleeding or purulent drainage from surgical site. Assessment: Patient will be discharged to rehab. Do not discharge until Covid results are back. Follow up with: PRIMARY MD SONYA [Primary Care Provider] - 3-5 Days GWEN BRUCE MD [Staff Physician] - 14 Days
== END 2021-06-14 09:00 | DRG 314 ==
LOC: ED 12:40 → 4A 19:08
PROVIDERS: ADMIT Internal Medicine; ATTEND Student in an Organized Health Care Education/Training Program
PROC: 30233N1 Transfusion of Nonautologous Red Blood Cells into Peripheral Vein, Percutaneous Approach (ICD-10-PCS; principal; 2021-06-11)
PROC: 5A1D70Z Performance of Urinary Filtration, Intermittent, Less than 6 Hours Per Day (ICD-10-PCS; 2021-06-11)
DX: T82.590A Other mechanical complication of surgically created arteriovenous fistula, initial encounter (principal); N18.6 End stage renal disease; A41.9 Sepsis, unspecified organism; L03.114 Cellulitis of left upper limb; I12.0 Hypertensive chronic kidney disease with stage 5 chronic kidney disease or end stage renal disease; L76.31 Postprocedural hematoma of skin and subcutaneous tissue following a dermatologic procedure; T82.898A Other specified complication of vascular prosthetic devices, implants and grafts, initial encounter; E87.5 Hyperkalemia; Z20.822 Contact with and (suspected) exposure to COVID-19; E11.22 Type 2 diabetes mellitus with diabetic chronic kidney disease; K21.9 Gastro-esophageal reflux disease without esophagitis; M19.90 Unspecified osteoarthritis, unspecified site; F03.90 Unspecified dementia, unspecified severity, without behavioral disturbance, psychotic disturbance, mood disturbance, and anxiety; F31.9 Bipolar disorder, unspecified; F20.9 Schizophrenia, unspecified; F41.9 Anxiety disorder, unspecified; G40.909 Epilepsy, unspecified, not intractable, without status epilepticus; D63.1 Anemia in chronic kidney disease; E21.3 Hyperparathyroidism, unspecified; Z99.2 Dependence on renal dialysis; Y83.2 Surgical operation with anastomosis, bypass or graft as the cause of abnormal reaction of the patient, or of later complication, without mention of misadventure at the time of the procedure; Z90.710 Acquired absence of both cervix and uterus; Z88.8 Allergy status to other drugs, medicaments and biological substances; Z88.0 Allergy status to penicillin; Z91.018 Allergy to other foods; Y92.89 Other specified places as the place of occurrence of the external cause; Z79.4 Long term (current) use of insulin
CPT/HCPCS: 36415; 71045; 80048; 80053; 80074; 81001; 82140; 82805; 82962; 83036; 83735; 84100; 85007; 85025; 85610; 86850; 86900; 86901; 86920; 87040; 87086; 93005; G0378; J0610; J1815; J1956; J7040; J7050; P9016; U0003

== ENCOUNTER 2022-04-18 12:15 | Emergency (ER) | payer MEDICARE ==
--- NOTE | 2022-04-18 14:12 | XRay Report ---
CHEST 1 VIEW 04/18/2022 12:55 PM INDICATION / CLINICAL INFORMATION: Altered Mental Status. COMPARISON: 02/28/2022 FINDINGS: SUPPORT DEVICES: None. HEART / MEDIASTINUM: Unchanged LUNGS / PLEURA: There is a small left pleural effusion. There is increased perihilar parenchymal opac ity and compared to the prior study. No pneumothorax. ADDITIONAL FINDINGS: Vascular stents are noted in the left upper arm/axilla. IMPRESSION: 1. There is increased parenchymal opacity in left perihilar location. There is pleural disease on the left which appears unchanged. Signer Name: Joel Escamilla MD Signed: 04/18/2022 2:08 PM Workstation Name: [id number]
[2022-04-18 14:45] LABS: INR 0.93 (0.87-1.13)
[2022-04-18 15:30] LABS: Chol/HDL Ratio 3.26 %
[2022-04-18] MEDS ORDERED: SODIUM CHLORIDE 0.9% 1000 ML 500 ML IV ONE (15:36)
[2022-04-18 16:20] LABS: Amphetamine Screen,Urine Negative; Benzodiazepines Screen,Urine Negative; Cannabinoid Screen,Urine Negative; Cocaine Screen,Urine Negative; Methadone Screen,Urine Negative; Opiate Screen,Urine Negative
[2022-04-18 16:50] LABS: Color,Urine Yellow (Yellow)
[2022-04-18 16:51] LABS: Bilirubin,Urine Negative (Negative); Blood,Urine Negative (Negative)
[2022-04-18 16:53] LABS: Calcium Oxalate Crystals,Urine 1+
[2022-04-18 16:54] LABS: Bacteria,Urine 1+ /HPF (Negative); Hyaline Casts,Urine 1+ /LPF; Renal Epithelial Cells,Urine 5 /LPF
[2022-04-18 16:55] LABS: RBC,Urine < 1.0 /HPF (0.0-6.0)
--- NOTE | 2022-04-18 17:25 | Emergency Department Report ---
ED General Adult HPI - General Chief complaint: Altered Mental Status Stated complaint: ALTERED MENTAL STATUS PUI?: No Time Seen by Provider: 04/18/22 13:43 Source: EMS Mode of arrival: Stretcher Limitations: Altered Mental Status, Physical Limitation - History of Present Illness Initial comments: weakness altered mental status from ursing home for few days , pt is on dialsyis, wasn;t not able to get dilaysis today cos of weakness, no fever. no head injuryno localsed weakness -: Gradual, days(s) Radiation: non-radiation Severity scale (0 -10): 0 Associated Symptoms: denies: denies other symptoms, confusion, chest pain Treatments Prior to Arrival: none - Related Data Home Medications Medication Instructions Recorded Confirmed Last Taken Sevelamer Carbonate [Renvela] 0.8 gram PO TIDWM 09/02/20 02/02/22 05/31/21 Previous Rx's Medication Instructions Recorded Last Taken Type HYDROcodone/APAP 5-325 [[place] 1 each PO Q4HR PRN #30 tablet 05/18/21 Unknown Rx 5-325 mg TAB] ALBUTEROL NEB's [Proventil 0.083% 2.5 mg IH Q3HRT PRN #1 nebu 03/03/22 Unknown Rx NEBS] Clopidogrel [Plavix] 75 mg PO QDAY #90 tablet 03/03/[address] [Depakocrow Dr] 750 mg PO BID #60 tablet 03/03/22 Unknown Rx LORazepam [Ativan] 1 mg PO DAILY #30 tab 03/03/22 Unknown Rx Memantine Xr [Namenda Xr] 5 mg PO DAILY #30 cap 03/03/22 Unknown Rx Midodrine [Proamatine] 10 mg PO TID #90 tab 03/03/22 Unknown Rx Pantoprazole [Protonix TAB] 40 mg PO DAILY #30 tab 03/03/22 Unknown Rx QUEtiapine [SEROquel] 400 mg PO BID #60 tab 03/03/22 Unknown Rx risperiDONE [RisperDAL] 0.5 mg PO BID #60 tab 03/03/22 Unknown Rx Allergies Allergy/AdvReac Type Severity Reaction Status Date / Time buspirone [From BuSpar] Allergy Unknown Verified 04/18/22 12:22 Penicillins Allergy Rash Verified 04/18/22 12:22 corn AdvReac Unknown Verified 04/18/22 12:22 ED Review of Systems ROS: Stated complaint: ALTERED MENTAL STATUS Other details as noted in HPI Comment: Unobtainable due to pts medical conditions ED Past Medical Hx - Past Medical History Previous Medical History?: Yes Hx Hypertension: Yes Hx Heart Attack/AMI: No (normal LV function on JAYDEN 08/2020) Hx Diabetes: Yes Hx GERD: Yes Hx Liver Disease: No Hx Arthritis: Yes (ARTHROPATHY) Hx Seizures: Yes Hx Psychiatric Treatment: Yes (bipolar,schizophrenia,severe anxiety) Hx Dementia: Yes Additional medical history: HD - Surgical History Additional Surgical History: hysterectomy, right chest wall permacath - Social History Smoking Status: Never Smoker - Medications Home Medications: Home Medications Medication Instructions Recorded Confirmed Last Taken Type Sevelamer Carbonate [Renvela] 0.8 gram PO TIDWM 09/02/20 02/02/22 05/31/21 History HYDROcodone/APAP 5-325 [[place] 1 each PO Q4HR PRN #30 tablet 05/18/21 02/02/22 Unknown Rx 5-325 mg TAB] ALBUTEROL NEB's [Proventil 0.083% 2.5 mg IH Q3HRT PRN #1 nebu 03/03/22 Unknown Rx NEBS] Clopidogrel [Plavix] 75 mg PO QDAY #90 tablet 03/03/[address] [Depamanda Dr] 750 mg PO BID #60 tablet 03/03/22 Unknown Rx LORazepam [Ativan] 1 mg PO DAILY #30 tab 03/03/22 Unknown Rx Memantine Xr [Namenda Xr] 5 mg PO DAILY #30 cap 03/03/22 Unknown Rx Midodrine [Proamatine] 10 mg PO TID #90 tab 03/03/22 Unknown Rx Pantoprazole [Protonix TAB] 40 mg PO DAILY #30 tab 03/03/22 Unknown Rx QUEtiapine [SEROquel] 400 mg PO BID #60 tab 03/03/22 Unknown Rx risperiDONE [RisperDAL] 0.5 mg PO BID #60 tab 03/03/22 Unknown Rx ED Physical Exam - General Limitations: Altered Mental Status, Physical Limitation General appearance: alert, other (weak) - Head Head exam: Present: atraumatic, normocephalic - Eye Eye exam: Present: normal appearance - ENT ENT exam: Present: mucous membranes moist - Neck Neck exam: Present: normal inspection - Respiratory Respiratory exam: Present: normal lung sounds bilaterally. Absent: respiratory distress - Cardiovascular Cardiovascular Exam: Present: regular rate, normal rhythm. Absent: systolic murmur, diastolic murmur, rubs, gallop - GI/Abdominal GI/Abdominal exam: Present: soft, normal bowel sounds - Extremities Exam Extremities exam: Present: normal inspection - Back Exam Back exam: Present: normal inspection - Neurological Exam Neurological exam: Present: alert - Skin Skin exam: Present: normal color. Absent: rash ED Course Vital Signs 04/18/22 04/18/22 04/18/22 12:17 12:41 12:48 Temperature Pulse Rate 118 H 114 H Respiratory 21 Rate Blood Pressure Blood Pressure 70/40 [Left] O2 Sat by Pulse 95 96 Oximetry 04/18/22 04/18/22 04/18/22 12:50 12:52 12:54 Temperature Pulse Rate 111 H 113 H 118 H Respiratory 31 H 18 19 Rate Blood Pressure Blood Pressure [Left] O2 Sat by Pulse 96 95 96 Oximetry 04/18/22 04/18/22 04/18/22 12:56 12:58 13:00 Temperature Pulse Rate 115 H 114 H 113 H Respiratory 19 16 27 H Rate Blood Pressure 102/45 Blood Pressure [Left] O2 Sat by Pulse 89 92 94 Oximetry 04/18/22 04/18/22 04/18/22 13:02 13:04 13:06 Temperature Pulse Rate 110 H 108 H 107 H Respiratory 36 H 27 H 27 H Rate Blood Pressure 102/45 102/45 102/45 Blood Pressure [Left] O2 Sat by Pulse 93 91 89 Oximetry 04/18/22 04/18/22 04/18/22 13:08 13:10 13:12 Temperature Pulse Rate 105 H 104 H 104 H Respiratory 30 H 29 H 29 H Rate Blood Pressure 102/45 102/45 102/45 Blood Pressure [Left] O2 Sat by Pulse 88 88 90 Oximetry 04/18/22 04/18/22 04/18/22 13:14 13:16 13:18 Temperature Pulse Rate 104 H 105 H 104 H Respiratory 31 H 33 H 29 H Rate Blood Pressure 102/45 92/36 92/36 Blood Pressure [Left] O2 Sat by Pulse 92 91 93 Oximetry 04/18/22 04/18/22 04/18/22 13:20 13:22 13:24 Temperature Pulse Rate 104 H 102 H 103 H Respiratory 30 H 29 H 31 H Rate Blood Pressure 92/36 92/36 92/36 Blood Pressure [Left] O2 Sat by Pulse 91 94 94 Oximetry 04/18/22 04/18/22 04/18/22 13:26 13:27 13:28 Temperature 98.3 F Pulse Rate 102 H 104 H Respiratory 29 H 22 Rate Blood Pressure 92/36 92/36 Blood Pressure [Left] O2 Sat by Pulse 95 94 Oximetry 04/18/22 04/18/22 04/18/22 13:30 13:32 13:34 Temperature Pulse Rate 105 H 105 H 102 H Respiratory 29 H 29 H 27 H Rate Blood Pressure 101/44 101/44 101/44 Blood Pressure [Left] O2 Sat by Pulse 88 96 92 Oximetry 04/18/22 04/18/22 04/18/22 13:36 13:38 13:40 Temperature Pulse Rate 102 H 101 H 102 H Respiratory 26 H 29 H 26 H Rate Blood Pressure 101/44 101/44 101/44 Blood Pressure [Left] O2 Sat by Pulse 90 93 96 Oximetry 04/18/22 04/18/22 04/18/22 13:42 13:44 13:46 Temperature Pulse Rate 104 H 104 H 103 H Respiratory 29 H 29 H 30 H Rate Blood Pressure 101/44 101/44 97/43 Blood Pressure [Left] O2 Sat by Pulse 96 96 95 Oximetry 04/18/22 04/18/22 04/18/22 13:48 13:50 13:52 Temperature Pulse Rate 104 H 104 H 111 H Respiratory 30 H 36 H 20 Rate Blood Pressure 97/43 97/43 97/43 Blood Pressure [Left] O2 Sat by Pulse 96 96 98 Oximetry 04/18/22 04/18/22 04/18/22 13:54 13:56 13:58 Temperature Pulse Rate 110 H 110 H 114 H Respiratory 18 16 16 Rate Blood Pressure 97/43 97/43 97/43 Blood Pressure [Left] O2 Sat by Pulse 92 96 84 Oximetry 04/18/22 04/18/22 04/18/22 14:00 14:02 14:04 Temperature Pulse Rate 116 H 111 H 107 H Respiratory 11 L 19 18 Rate Blood Pressure 112/68 112/68 112/68 Blood Pressure [Left] O2 Sat by Pulse 71 L 83 L 92 Oximetry 04/18/22 04/18/22 04/18/22 14:06 14:08 14:10 Temperature Pulse Rate 102 H 102 H 107 H Respiratory 25 H 28 H 24 Rate Blood Pressure 112/68 112/68 112/68 Blood Pressure [Left] O2 Sat by Pulse 86 84 99 Oximetry 04/18/22 04/18/22 04/18/22 14:12 14:14 14:16 Temperature Pulse Rate 114 H 116 H 113 H Respiratory 31 H 20 16 Rate Blood Pressure 112/68 112/68 112/68 Blood Pressure [Left] O2 Sat by Pulse 98 86 97 Oximetry 04/18/22 04/18/22 04/18/22 14:18 14:20 14:22 Temperature Pulse Rate 112 H 112 H 112 H Respiratory 13 15 14 Rate Blood Pressure 112/68 112/68 112/68 Blood Pressure [Left] O2 Sat by Pulse 96 94 95 Oximetry 04/18/22 04/18/22 04/18/22 14:24 14:26 14:28 Temperature Pulse Rate 111 H 108 H 112 H Respiratory 16 26 H 14 Rate Blood Pressure 112/68 112/68 112/68 Blood Pressure [Left] O2 Sat by Pulse 96 96 Oximetry 04/18/22 04/18/22 04/18/22 14:30 14:32 14:34 Temperature Pulse Rate 115 H 111 H 109 H Respiratory 12 10 L 15 Rate Blood Pressure 100/40 100/40 100/40 Blood Pressure [Left] O2 Sat by Pulse 90 97 Oximetry 04/18/22 04/18/22 04/18/22 14:36 14:38 14:40 Temperature Pulse Rate 109 H 108 H 107 H Respiratory 13 15 22 Rate Blood Pressure 100/40 100/40 100/40 Blood Pressure [Left] O2 Sat by Pulse 97 84 93 Oximetry 04/18/22 04/18/22 04/18/22 14:42 14:44 14:46 Temperature Pulse Rate 108 H 108 H 107 H Respiratory 20 26 H 21 Rate Blood Pressure 100/40 100/40 101/51 Blood Pressure [Left] O2 Sat by Pulse 100 99 95 Oximetry 04/18/22 04/18/22 04/18/22 14:48 14:50 14:52 Temperature Pulse Rate 108 H 107 H 106 H Respiratory 24 15 19 Rate Blood Pressure 101/51 101/51 101/51 Blood Pressure [Left] O2 Sat by Pulse 93 96 91 Oximetry 04/18/22 04/18/22 04/18/22 14:54 14:56 14:58 Temperature Pulse Rate 106 H 105 H 104 H Respiratory 14 15 15 Rate Blood Pressure 101/51 101/51 101/51 Blood Pressure [Left] O2 Sat by Pulse 95 97 92 Oximetry 04/18/22 04/18/22 04/18/22 15:00 15:02 15:04 Temperature Pulse Rate 105 H 106 H 106 H Respiratory 19 18 21 Rate Blood Pressure 101/51 92/57 92/57 Blood Pressure [Left] O2 Sat by Pulse 93 96 95 Oximetry 04/18/22 04/18/22 04/18/22 15:06 15:08 15:10 Temperature Pulse Rate 106 H 105 H 104 H Respiratory 20 19 17 Rate Blood Pressure 92/57 92/57 92/57 Blood Pressure [Left] O2 Sat by Pulse 93 92 93 Oximetry 04/18/22 04/18/22 04/18/22 15:12 15:14 15:16 Temperature Pulse Rate 104 H 104 H 103 H Respiratory 22 18 14 Rate Blood Pressure 92/57 92/57 100/48 Blood Pressure [Left] O2 Sat by Pulse 95 94 95 Oximetry 04/18/22 04/18/22 04/18/22 15:18 15:20 15:22 Temperature Pulse Rate 102 H 102 H 101 H Respiratory 22 22 19 Rate Blood Pressure 100/48 100/48 100/48 Blood Pressure [Left] O2 Sat by Pulse 93 94 100 Oximetry 04/18/22 04/18/22 04/18/22 15:24 15:26 15:28 Temperature Pulse Rate 102 H 104 H 104 H Respiratory 18 27 H 20 Rate Blood Pressure 100/48 100/48 100/48 Blood Pressure [Left] O2 Sat by Pulse 99 100 97 Oximetry 04/18/22 04/18/22 04/18/22 15:30 15:32 15:34 Temperature Pulse Rate 104 H 104 H 103 H Respiratory 22 15 15 Rate Blood Pressure 87/46 87/46 87/45 Blood Pressure [Left] O2 Sat by Pulse 94 97 97 Oximetry 04/18/22 04/18/22 04/18/22 15:36 15:38 15:40 Temperature Pulse Rate 101 H 99 H 101 H Respiratory 23 24 24 Rate Blood Pressure 87/45 87/45 87/45 Blood Pressure [Left] O2 Sat by Pulse 99 99 98 Oximetry 04/18/22 04/18/22 04/18/22 15:42 15:44 15:46 Temperature Pulse Rate 99 H 100 H 99 H Respiratory 19 21 22 Rate Blood Pressure 87/45 87/45 84/43 Blood Pressure [Left] O2 Sat by Pulse 97 97 97 Oximetry 04/18/22 04/18/22 04/18/22 15:48 15:50 15:52 Temperature Pulse Rate 99 H 101 H 100 H Respiratory 22 17 21 Rate Blood Pressure 84/43 84/43 84/43 Blood Pressure [Left] O2 Sat by Pulse 97 97 97 Oximetry 04/18/22 04/18/22 04/18/22 15:54 15:56 15:58 Temperature Pulse Rate 102 H 103 H 101 H Respiratory 22 11 L 20 Rate Blood Pressure 84/43 84/43 84/43 Blood Pressure [Left] O2 Sat by Pulse 97 97 97 Oximetry 04/18/22 04/18/22 04/18/22 16:00 16:02 16:04 Temperature Pulse Rate 102 H 102 H 99 H Respiratory 17 14 22 Rate Blood Pressure 93/46 93/46 93/46 Blood Pressure [Left] O2 Sat by Pulse 98 97 97 Oximetry 04/18/22 04/18/22 04/18/22 16:06 16:08 16:10 Temperature Pulse Rate 98 H 97 H 99 H Respiratory 21 24 26 H Rate Blood Pressure 93/46 93/46 93/46 Blood Pressure [Left] O2 Sat by Pulse 98 97 96 Oximetry ED Medical Decision Making - Lab Data Result diagrams: 04/18/22 14:23 - EKG Data EKG shows normal: sinus rhythm Rate: tachycardia - EKG Data Interpretation: nonspecific ST-T wave idris - Radiology Data Radiology results: report reviewed, image reviewed - Medical Decision Making work up unremarkable , showed CKD and elevated trop, x ray clear fluids given and BP imrpoved Critical care attestation.: If time is entered above; I have spent that time in minutes in the direct care of this critically ill patient, excluding procedure time. ED Disposition Clinical Impression: ESRD (end stage renal disease), Altered mental status, Hypotension, ESRD (end stage renal disease) on dialysis Disposition: 01 HOME / SELF CARE / HOMELESS Is pt being admited?: No Does the pt Need Aspirin: No Condition: Stable Instructions: Dialysis, Hypotension Referrals: VIRGINIE HARO MD [Primary Care Provider] - 3-5 Days
[2022-04-18 18:37] VITALS: BP 91/50
[2022-04-18 18:58] LABS: Hematocrit 25.9 % (30.3-42.9); Hemoglobin 8.1 gm/dl (10.1-14.3); Mean Corpuscular HGB Conc 32 % (30-34); Mean Corpuscular Volume 90 fl (79-97); Platelet Count 228 K/mm3 (140-440); Red Blood Count 2.89 M/mm3 (3.65-5.03); Red Cell Distribution Width 16.9 % (13.2-15.2)
[2022-04-18 18:59] LABS: Basophils % (Auto) 1.7 % (0.0-1.8); Lymphocytes % (Auto) 15.1 % (13.4-35.0)
[2022-04-18 19:00] LABS: Basophils # (Auto) 0.2 K/mm3 (0.0-0.1); Eosinophils # (Auto) 0.1 K/mm3 (0.0-0.4); Lymphocytes # (Auto) 1.5 K/mm3 (1.2-5.4); Monocytes # (Auto) 1.6 K/mm3 (0.0-0.8)
--- NOTE | 2022-04-20 18:16 | Electrocardiograph Report ---
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
== END 2022-04-18 17:22 | disposition home or self-care (01) ==
LOC: ED 12:15
DX: I12.0 Hypertensive chronic kidney disease with stage 5 chronic kidney disease or end stage renal disease (principal); E11.22 Type 2 diabetes mellitus with diabetic chronic kidney disease; N18.6 End stage renal disease; M19.90 Unspecified osteoarthritis, unspecified site; F31.9 Bipolar disorder, unspecified; F20.9 Schizophrenia, unspecified; F41.9 Anxiety disorder, unspecified; I95.9 Hypotension, unspecified; Z99.2 Dependence on renal dialysis; Z88.0 Allergy status to penicillin; Z91.018 Allergy to other foods; Z88.8 Allergy status to other drugs, medicaments and biological substances; Z79.899 Other long term (current) drug therapy
CPT/HCPCS: 36415; 71045; 80053; 80061; 80307; 81001; 82140; 82550; 84484; 85025; 85610; 93005; 99284; J7030; 80320; G0480

== ENCOUNTER 2022-04-19 03:58 | Inpatient (IN) | payer MEDICARE ==
[2022-04-19] MEDS ORDERED: SODIUM CHLORIDE 0.9% 250ML 250 ML IV ONE ×2 (04:24→06:01)
--- NOTE | 2022-04-19 04:43 | Emergency Department Report ---
<JUAQUIN PALACIO - Last Filed: 04/19/22 05:58> ED Altered Mental Status HPI - General Stated Complaint: AMS Time Seen by Provider: 04/19/22 04:17 Source: patient, EMS, old records reviewed Mode of arrival: Stretcher Limitations: Altered Mental Status, Physical Limitation - History of Present Illness Initial Comments: 66-year-old female past medical history of hypertension, GERD, seizure disorder, vascular dementia, ESRD on hemodialysis (TTS), osteoarthritis, bipolar disorder, schizophrenia, anxiety disorder, and limited mobility presents from [facility] with alteration mental status. Patient apparently was seen here yesterday for the same by another ED provider. As per medical chart review patient had alteration in mental status and weakness for several days and did not receive dialysis yesterday due to her symptoms. Patient presented with mild hypotension that improved with IV fluids and had labs and chest x-ray was subsequently discharged back to the [facility] yesterday evening. EMS reports that nurse noted that patient had a room air saturation in the 70s with continued diminished mental status and therefore was sent to the hospital for reevaluation. Apparently at her baseline she is "more lively" than she is to day. Accu-Chek reported to be 97. Patient is oriented to self and place but cannot express why she is here today or provide detailed history of present illness. - Related Data Home Medications Medication Instructions Recorded Confirmed Last Taken Sevelamer Carbonate [Renvela] 0.8 gram PO TIDWM 09/02/20 02/02/22 05/31/21 Previous Rx's Medication Instructions Recorded Last Taken Type HYDROcodone/APAP 5-325 [[place] 1 each PO Q4HR PRN #30 tablet 05/18/21 Unknown Rx 5-325 mg TAB] ALBUTEROL NEB's [Proventil 0.083% 2.5 mg IH Q3HRT PRN #1 nebu 03/03/22 Unknown Rx NEBS] Clopidogrel [Plavix] 75 mg PO QDAY #90 tablet 03/03/22 Unknown Rx Divalproex [Sarina Serrano] 750 mg PO BID #60 tablet 03/03/22 Unknown Rx LORazepam [Ativan] 1 mg PO DAILY #30 tab 03/03/22 Unknown Rx Memantine Xr [Namenda Xr] 5 mg PO DAILY #30 cap 03/03/22 Unknown Rx Midodrine [Proamatine] 10 mg PO TID #90 tab 03/03/22 Unknown Rx Pantoprazole [Protonix TAB] 40 mg PO DAILY #30 tab 03/03/22 Unknown Rx QUEtiapine [SEROquel] 400 mg PO BID #60 tab 03/03/22 Unknown Rx risperiDONE [RisperDAL] 0.5 mg PO BID #60 tab 03/03/22 Unknown Rx Allergies Allergy/AdvReac Type Severity Reaction Status Date / Time buspirone [From BuSpar] Allergy Unknown Verified 04/18/22 12:22 Penicillins Allergy Rash Verified 04/18/22 12:22 corn AdvReac Unknown Verified 04/18/22 12:22 ED Review of Systems Comment: Unobtainable due to pts medical conditions ED Past Medical Hx - Past Medical History Hx Hypertension: Yes Hx Heart Attack/AMI: No (normal LV function on JAYDEN 08/2020) Hx Diabetes: Yes Hx GERD: Yes Hx Liver Disease: No Hx Arthritis: Yes (ARTHROPATHY) Hx Seizures: Yes Hx Psychiatric Treatment: Yes (bipolar,schizophrenia,severe anxiety) Hx Dementia: Yes Additional medical history: HD - Surgical History Additional Surgical History: hysterectomy, right chest wall permacath - Social History Smoking Status: Never Smoker - Medications Home Medications: Home Medications Medication Instructions Recorded Confirmed Last Taken Type Sevelamer Carbonate [Renvela] 0.8 gram PO TIDWM 09/02/20 02/02/22 05/31/21 History HYDROcodone/APAP 5-325 [[place] 1 each PO Q4HR PRN #30 tablet 05/18/21 02/02/22 Unknown Rx 5-325 mg TAB] ALBUTEROL NEB's [Proventil 0.083% 2.5 mg IH Q3HRT PRN #1 nebu 03/03/22 Unknown Rx NEBS] Clopidogrel [Plavix] 75 mg PO QDAY #90 tablet 03/03/22 Unknown Rx Divalproex [Sarina Serrano] 750 mg PO BID #60 tablet 03/03/22 Unknown Rx LORazepam [Ativan] 1 mg PO DAILY #30 tab 03/03/22 Unknown Rx Memantine Xr [Namenda Xr] 5 mg PO DAILY #30 cap 03/03/22 Unknown Rx Midodrine [Proamatine] 10 mg PO TID #90 tab 03/03/22 Unknown Rx Pantoprazole [Protonix TAB] 40 mg PO DAILY #30 tab 03/03/22 Unknown Rx QUEtiapine [SEROquel] 400 mg PO BID #60 tab 03/03/22 Unknown Rx risperiDONE [RisperDAL] 0.5 mg PO BID #60 tab 03/03/22 Unknown Rx ED Physical Exam - Other Other exam information: General: No acute distress Head: Atraumatic Eyes: normal appearance ENT: Dry mucous Neck: Normal appearance Chest: Clear to auscultation bilaterally CV: Regular rate and rhythm, right arm dialysis access Abdomen: Soft, normal bowel sounds, nontender, nondistended, no rebound or guarding Extremity: Normal inspection, full range of motion Neuro: Lethargic, answer some questions. Oriented to self and place but not to year. Mild tremor noted to left upper and lower extremity with movement. 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 5/5 right hand gin pole operator. Equal foot dorsiflexion. ED Course - Reevaluation(s) Reevaluation #1: 04/19/22 04:45 Initial room air saturation 93% - Lab Data Result diagrams: 04/19/22 04:53 04/19/22 04:53 - EKG Data -: EKG Interpreted by Me (Low voltage EKG) EKG shows normal: sinus rhythm, ST-T waves (No STEMI) Rate: normal When compared to previous EKG there are: no significant change - Radiology Data Radiology results: report reviewed CT HEAD WITHOUT CONTRAST INDICATION / CLINICAL INFORMATION: decreased mental status. TECHNIQUE: All CT scans at this location are performed using CT dose reduction for ALARA by means of automated exposure control. COMPARISON: CT head without contrast from 02/28/2022. FINDINGS: BRAIN PARENCHYMA: No acute intracranial hemorrhage. No evidence of recent infarct. No mass effect or midline shift. There is similar generalized atrophy. Probable mild chronic microvascular ischemic changes are again seen. VENTRICULAR SYSTEM/EXTRA-AXIAL SPACES: Ventricles are normal for age. No extra- axial fluid collection. ORBITS: Normal as visualized. SKELETAL SYSTEM/SOFT TISSUES: Normal bones and soft tissues. PARANASAL SINUSES/MASTOID AIR CELLS: No significant abnormality. ADDITIONAL FINDINGS: None. IMPRESSION: 1. No acute intracranial abnormality. No significant interval changes. - Medical Decision Making Patient was sent back to the ER for continued diminished mental status. No signs of hypoxia during ED stay. Patient does have mild hypotension and received IV fluids. Sepsis protocol initiated. CT head unremarkable. Critical Care Time: No ED Disposition Clinical Impression: Elevated troponin, Uremic encephalopathy, Altered mental status, Hypotension, ESRD (end stage renal disease) on dialysis Disposition: ADMITTED INPATIENT Condition: Fair <KEKE GARRISON - Last Filed: 04/19/22 09:27> ED Altered Mental Status HPI - General PUI?: No ED Review of Systems ROS: Stated complaint: AMS Other details as noted in HPI ED Course Vital Signs 04/19/22 04/19/22 04/19/22 04:36 04:46 05:00 Pulse Rate 106 H 103 H 85 Respiratory 19 14 13 Rate Blood Pressure 84/41 O2 Sat by Pulse 94 93 94 Oximetry 04/19/22 04/19/22 04/19/22 05:15 05:30 05:45 Pulse Rate 85 82 85 Respiratory 18 19 20 Rate Blood Pressure 90/50 90/50 84/46 O2 Sat by Pulse 93 92 94 Oximetry 04/19/22 04/19/22 04/19/22 06:00 06:15 06:30 Pulse Rate 86 86 87 Respiratory 21 23 19 Rate Blood Pressure 88/49 81/45 78/44 O2 Sat by Pulse 95 95 96 Oximetry 04/19/22 04/19/22 04/19/22 06:45 07:00 07:15 Pulse Rate 85 83 82 Respiratory 21 20 20 Rate Blood Pressure 93/49 82/46 91/55 O2 Sat by Pulse 96 96 93 Oximetry 04/19/22 07:30 Pulse Rate 80 Respiratory 18 Rate Blood Pressure 87/50 O2 Sat by Pulse 92 Oximetry - Lab Data Result diagrams: 04/19/22 04:53 04/19/22 04:53 Lab Results 04/19/22 04/19/22 04/19/22 Range/Units 04:53 04:53 04:53 WBC 5.2 (4.5-11.0) K/mm3 RBC 3.06 L (3.65-5.03) M/mm3 Hgb 8.6 L (10.1-14.3) gm/dl Hct 28.0 L (30.3-42.9) % MCV 91 (79-97) fl MCH 28 (28-32) pg MCHC 31 (30-34) % RDW 16.3 H (13.2-15.2) % Plt Count 321 (140-440) K/mm3 Lymph % (Auto) 27.3 (13.4-35.0) % Cotton % (Auto) 11.3 H (0.0-7.3) % Eos % (Auto) 3.2 (0.0-4.3) % Baso % (Auto) 0.6 (0.0-1.8) % Lymph # (Auto) 1.4 (1.2-5.4) K/mm3 Cotton # (Auto) 0.6 (0.0-0.8) K/mm3 Eos # (Auto) 0.2 (0.0-0.4) K/mm3 Baso # (Auto) 0.0 (0.0-0.1) K/mm3 Seg Neutrophils % 57.6 (40.0-70.0) % Seg Neutrophils # 3.0 (1.8-7.7) K/mm3 Sodium 142 (137-145) mmol/L Potassium 5.1 H (3.6-5.0) mmol/L Chloride 98.8 (98-107) mmol/L Carbon Dioxide 21 L (22-30) mmol/L Anion Gap 27 mmol/L BUN 94 H (7-17) mg/dL Creatinine 6.3 H (0.6-1.2) mg/dL Estimated GFR 8 ml/min BUN/Creatinine Ratio 15 % Glucose 80 (65-100) mg/dL Lactic Acid 1.30 (0.7-2.0) mmol/L Calcium 9.9 (8.4-10.2) mg/dL Total Bilirubin 0.50 (0.1-1.2) mg/dL AST 15 (5-40) units/L ALT 8 (7-56) units/L Alkaline Phosphatase 112 (35-129) units/L Ammonia (25-60) umol/L Troponin T 0.415 H* (0.00-0.029) ng/mL Total Protein 7.5 (6.3-8.2) g/dL Albumin 2.7 L (3.9-5) g/dL Albumin/Globulin Ratio 0.6 % TSH (0.270-4.200) mlU/mL Free T4 (0.76-1.46) ng/dL 04/19/22 04/19/22 04/19/22 Range/Units 04:53 04:53 07:14 WBC (4.5-11.0) K/mm3 RBC (3.65-5.03) M/mm3 Hgb (10.1-14.3) gm/dl Hct (30.3-42.9) % MCV (79-97) fl MCH (28-32) pg MCHC (30-34) % RDW (13.2-15.2) % Plt Count (140-440) K/mm3 Lymph % (Auto) (13.4-35.0) % Cotton % (Auto) (0.0-7.3) % Eos % (Auto) (0.0-4.3) % Baso % (Auto) (0.0-1.8) % Lymph # (Auto) (1.2-5.4) K/mm3 Cotton # (Auto) (0.0-0.8) K/mm3 Eos # (Auto) (0.0-0.4) K/mm3 Baso # (Auto) (0.0-0.1) K/mm3 Seg Neutrophils % (40.0-70.0) % Seg Neutrophils # (1.8-7.7) K/mm3 Sodium (137-145) mmol/L Potassium (3.6-5.0) mmol/L Chloride (98-107) mmol/L Carbon Dioxide (22-30) mmol/L Anion Gap mmol/L BUN (7-17) mg/dL Creatinine (0.6-1.2) mg/dL Estimated GFR ml/min BUN/Creatinine Ratio % Glucose (65-100) mg/dL Lactic Acid 1.60 (0.7-2.0) mmol/L Calcium (8.4-10.2) mg/dL Total Bilirubin (0.1-1.2) mg/dL AST (5-40) units/L ALT (7-56) units/L Alkaline Phosphatase (35-129) units/L Ammonia 25.0 (25-60) umol/L Troponin T (0.00-0.029) ng/mL Total Protein (6.3-8.2) g/dL Albumin (3.9-5) g/dL Albumin/Globulin Ratio % TSH 1.700 (0.270-4.200) mlU/mL Free T4 0.28 L (0.76-1.46) ng/dL - Medical Decision Making spoke with dr Pringle nephrology on calll for dr lira , , we will admit patient to hospitalist then dialyze her when she is vitally stable awaiting admission, pt developped SVT HR of 190, adenosine 6,12 tried with no effects pt was cardioverted using 100KJ once and converted back to sinus with concious sedation Critical care attestation.: If time is entered above; I have spent that time in minutes in the direct care of this critically ill patient, excluding procedure time. ED Disposition Is pt being admited?: Yes Does the pt Need Aspirin: No
[2022-04-19 05:31] LABS: Basophils % (Auto) 0.6 % (0.0-1.8); Eosinophils # (Auto) 0.2 K/mm3 (0.0-0.4); Eosinophils % (Auto) 3.2 % (0.0-4.3); Hemoglobin 8.6 gm/dl (10.1-14.3); Lymphocytes # (Auto) 1.4 K/mm3 (1.2-5.4); Lymphocytes % (Auto) 27.3 % (13.4-35.0); Mean Corpuscular HGB Conc 31 % (30-34); Mean Corpuscular Volume 91 fl (79-97); Monocytes # (Auto) 0.6 K/mm3 (0.0-0.8); Monocytes % (Auto) 11.3 % (0.0-7.3); Platelet Count 321 K/mm3 (140-440); Red Blood Count 3.06 M/mm3 (3.65-5.03); Red Cell Distribution Width 16.3 % (13.2-15.2)
--- NOTE | 2022-04-19 05:42 | Cat Scan Report ---
CT HEAD WITHOUT CONTRAST INDICATION / CLINICAL INFORMATION: decreased mental status. TECHNIQUE: All CT scans at this location are performed using CT dose reduction for ALARA by means of automated exposure control. COMPARISON: CT head without contrast from 02/28/2022. FINDINGS: BRAIN PARENCHYMA: No acute intracranial hemorrhage. No evidence of recent infarct. No mass effect or midline shift. There is similar generalized atrophy. Probable mild chronic microvascular ischemic idris nges are again seen. VENTRICULAR SYSTEM/EXTRA-AXIAL SPACES: Ventricles are normal for age. No extra-axial fluid collection . ORBITS: Normal as visualized. SKELETAL SYSTEM/SOFT TISSUES: Normal bones and soft tissues. PARANASAL SINUSES/MASTOID AIR CELLS: No significant abnormality. ADDITIONAL FINDINGS: None. IMPRESSION: 1. No acute intracranial abnormality. No significant interval changes. Signer Name: Brandon Brid MD Signed: 04/19/2022 5:37 AM Workstation Name: [id number]
[2022-04-19 05:45] LABS: Albumin 2.7 g/dL (3.9-5); Calcium 9.9 mg/dL (8.4-10.2)
[2022-04-19 05:55] LABS: Free T4 (Free Thyroxine) 0.28 ng/dL (0.76-1.46)
[2022-04-19] MEDS ORDERED: ADENOSINE 6 MG/2 ML INJ ONE (09:09)
[2022-04-19] MEDS ORDERED: SODIUM CHLORIDE 0.9% 1000 ML 1,000 ML ONE (09:11)
[2022-04-19] MEDS ORDERED: ETOMIDATE 20 MG/10 ML INJ IV ONE ×2 (09:17→09:33)
[2022-04-19] MEDS ORDERED: NORepinephrine/NS 8 MG-250 ML 8 MG/250 ML INFUS..BTL IV ONE (09:21)
[2022-04-19] MEDS ORDERED: ADENOSINE 6 MG/2 ML INJ IV ONE ×2 (09:31)
[2022-04-19] MEDS ORDERED: SODIUM CHLORIDE 0.9% 500 ML 500 ML IV ONE (09:31)
--- NOTE | 2022-04-19 09:54 | History and Physical Report ---
History of Present Illness Date of examination: 04/19/22 Date of admission: 04/19/22 Chief complaint: SVT History of present illness: Patient is a 66-year-old female medical history of hypertension, GERD, seizure disorder, vascular dementia, ESRD on hemodialysis (TTS), osteoarthritis, bipolar disorder, schizophrenia, anxiety disorder, and limited mobility currently a resident of [facility] and presented with altered mental status. Patient was initially seen here in the ED the day prior and was discharged but documentation on the chart as patient is currently with altered mental status and unable to provide information shows that the patient was refused by the facility stating that she had been combative and has missed several days of dialysis as a result of behavioral disturbance. On presentation patient was noted to be hypotensive more than normal and was noted with room air oxygen saturation in the 70s and unfortunately went into SVT in the 150s requiring cardiac shock being delivered under conscious sedation. And you are being recommended or requested for admission. Patient remains very lethargic and sedated although easily arousable unable to provide information. Review of her charts from prior shows that her systolic blood pressure runs in the 80s and she is on midodrine outpatient. She is however not on home oxygen. She is currently in the ED on pressors and again unfortunately unable to provide any information. She is oriented to self and place per documentation prior to defibrillation. During one of her last hospitalization she was recommended to have a cholecystectomy which does not appear that he was done at the time. She does not endorse any abdominal pain at this time. During that last admission also she had acute hypoxic respiratory failure but was weaned down to room air prior to discharge Past History Past Medical History: arthritis, diabetes, hypertension, liver disease, renal failure, other (bipolar,schizophrenia,severe anxiet) Past Surgical History: hysterectomy, Other (Right upper extremity fistula for dialysis) Social history: full code, other (Lives in long term). denies: smoking, alcohol abuse, prescription drug abuse Family history: no significant family history Medications and Allergies Allergies Allergy/AdvReac Type Severity Reaction Status Date / Time buspirone [From BuSpar] Allergy Unknown Verified 04/18/22 12:22 Penicillins Allergy Rash Verified 04/18/22 12:22 corn AdvReac Unknown Verified 04/18/22 12:22 Home Medications Medication Instructions Recorded Confirmed Last Taken Type Sevelamer Carbonate [Renvela] 0.8 gram PO TIDWM 09/02/20 02/02/22 05/31/21 History HYDROcodone/APAP 5-325 [[place] 1 each PO Q4HR PRN #30 tablet 05/18/21 02/02/22 Unknown Rx 5-325 mg TAB] ALBUTEROL NEB's [Proventil 0.083% 2.5 mg IH Q3HRT PRN #1 nebu 03/03/22 Unknown Rx NEBS] Clopidogrel [Plavix] 75 mg PO QDAY #90 tablet 03/03/[address] [Depakote Dr] 750 mg PO BID #60 tablet 03/03/22 Unknown Rx LORazepam [Ativan] 1 mg PO DAILY #30 tab 03/03/22 Unknown Rx Memantine Xr [Namenda Xr] 5 mg PO DAILY #30 cap 03/03/22 Unknown Rx Midodrine [Proamatine] 10 mg PO TID #90 tab 03/03/22 Unknown Rx Pantoprazole [Protonix TAB] 40 mg PO DAILY #30 tab 03/03/22 Unknown Rx QUEtiapine [SEROquel] 400 mg PO BID #60 tab 03/03/22 Unknown Rx risperiDONE [RisperDAL] 0.5 mg PO BID #60 tab 03/03/22 Unknown Rx Active Meds: Active Medications Albuterol (Albuterol 2.5 Mg/3 Ml Nebu) 2.5 mg IH Q3HRT PRN PRN Reason: Shortness Of Breath Clopidogrel Bisulfate (Clopidogrel 75 Mg Tab) 75 mg PO QDAY CONNOR Divalproex Sodium (Divalproex Dr 250 Mg Tab) 750 mg PO BID CONNOR Sodium Chloride (Nacl 0.9% 500 Ml) 500 mls @ 999 mls/hr IV ONCE ONE Stop: 04/19/22 10:01 Last Admin: 04/19/22 09:33 Dose: 999 mls/hr NORepinephrine/NS 8 MG-250 ML (Norepinephrine/Ns 8 Mg-250 Ml (Double Conc)) 8 mg in 250 mls @ 3.75 mls/hr IV TITRATE CONNOR; Protocol Lorazepam (Lorazepam 1 Mg Tab) 1 mg PO DAILY CONNOR Midodrine (Midodrine 5 Mg Tab) 10 mg PO TID CONNOR Miscellaneous Medication (Memantine Xr) 5 mg PO DAILY CONNOR Miscellaneous Medication (Risperidone [Risperdal]) 0.5 mg PO BID CONNOR Pantoprazole Sodium (Pantoprazole 40 Mg Tab) 40 mg PO DAILY CONNOR Quetiapine Fumarate (Quetiapine 200 Mg Tab) 400 mg PO BID CONNOR Sevelamer Carbonate (Sevelamer Carbonate 800 Mg Tab) 800 mg PO TIDWM CONNOR Review of Systems ROS unobtainable: due to mental status Exam - Physical Exam Narrative exam: VITAL SIGNS: Reviewed. GENERAL: The patient appears normally developed, sedated, Vital signs as documented. HEAD: No signs of head trauma. EYES: Pupils are equal. Extraocular motions intact. EARS: Hearing grossly intact. MOUTH: Oropharynx is normal. NECK: No adenopathy, no JVD. CHEST: Chest with clear breath sounds bilaterally. No wheezes, rales, or rhonchi. CARDIAC: Regular rate and rhythm. S1 and S2, without murmurs, gallops, or rubs. VASCULAR: Right upper ext av graft. No Edema. Peripheral pulses normal and equal in all extremities. ABDOMEN: Soft, non tender and non distended. No rebound or guarding, and no masses palpated. Bowel Sounds normal. MUSCULOSKELETAL: Good range of motion of all major joints. Extremities without clubbing, cyanosis or edema. NEUROLOGIC EXAM: sedated PSYCHIATRIC: sedated SKIN: detail exam as documented in skin assessment - Constitutional Vitals: Temp Pulse Resp BP Pulse Ox 80 18 87/50 92 04/19/22 07:30 04/19/22 07:30 04/19/22 07:30 04/19/22 07:30 HEART Score - HEART Score Troponin: Troponin T 0.415 ng/mL (0.00-0.029) H* 04/19/22 04:53 Results - Labs CBC & Chem 7: 04/19/22 04:53 04/19/22 04:53 Labs: Laboratory Last Values WBC 5.2 K/mm3 (4.5-11.0) 04/19/22 04:53 RBC 3.06 M/mm3 (3.65-5.03) L 04/19/22 04:53 Hgb 8.6 gm/dl (10.1-14.3) L 04/19/22 04:53 Hct 28.0 % (30.3-42.9) L 04/19/22 04:53 MCV 91 fl (79-97) 04/19/22 04:53 MCH 28 pg (28-32) 04/19/22 04:53 MCHC 31 % (30-34) 04/19/22 04:53 RDW 16.3 % (13.2-15.2) H 04/19/22 04:53 Plt Count 321 K/mm3 (140-440) 04/19/22 04:53 Lymph % (Auto) 27.3 % (13.4-35.0) 04/19/22 04:53 [place] % (Auto) 11.3 % (0.0-7.3) H 04/19/22 04:53 Eos % (Auto) 3.2 % (0.0-4.3) 04/19/22 04:53 Baso % (Auto) 0.6 % (0.0-1.8) 04/19/22 04:53 Lymph # (Auto) 1.4 K/mm3 (1.2-5.4) 04/19/22 04:53 [place] # (Auto) 0.6 K/mm3 (0.0-0.8) 04/19/22 04:53 Eos # (Auto) 0.2 K/mm3 (0.0-0.4) 04/19/22 04:53 Baso # (Auto) 0.0 K/mm3 (0.0-0.1) 04/19/22 04:53 Seg Neutrophils % 57.6 % (40.0-70.0) 04/19/22 04:53 Seg Neutrophils # 3.0 K/mm3 (1.8-7.7) 04/19/22 04:53 Sodium 142 mmol/L (137-145) 04/19/22 04:53 Potassium 5.1 mmol/L (3.6-5.0) H 04/19/22 04:53 Chloride 98.8 mmol/L (98-107) 04/19/22 04:53 Carbon Dioxide 21 mmol/L (22-30) L 04/19/22 04:53 Anion Gap 27 mmol/L 04/19/22 04:53 BUN 94 mg/dL (7-17) H 04/19/22 04:53 Creatinine 6.3 mg/dL (0.6-1.2) H 04/19/22 04:53 Estimated GFR 8 ml/min 04/19/22 04:53 BUN/Creatinine Ratio 15 % 04/19/22 04:53 Glucose 80 mg/dL (65-100) 04/19/22 04:53 Lactic Acid 1.60 mmol/L (0.7-2.0) 04/19/22 07:14 Calcium 9.9 mg/dL (8.4-10.2) 04/19/22 04:53 Total Bilirubin 0.50 mg/dL (0.1-1.2) 04/19/22 04:53 AST 15 units/L (5-40) 04/19/22 04:53 ALT 8 units/L (7-56) 04/19/22 04:53 Alkaline Phosphatase 112 units/L (35-129) 04/19/22 04:53 Ammonia 25.0 umol/L (25-60) 04/19/22 04:53 Troponin T 0.415 ng/mL (0.00-0.029) H* 04/19/22 04:53 Total Protein 7.5 g/dL (6.3-8.2) 04/19/22 04:53 Albumin 2.7 g/dL (3.9-5) L 04/19/22 04:53 Albumin/Globulin Ratio 0.6 % 04/19/22 04:53 TSH 1.700 mlU/mL (0.270-4.200) 04/19/22 04:53 Free T4 0.28 ng/dL (0.76-1.46) L 04/19/22 04:53 Microbiology: Microbiology 04/19/22 04:53 Peripheral/Venous Blood Culture - Preliminary Culture in Progress 04/19/22 05:43 Peripheral/Venous Blood Culture - Preliminary Culture in Progress - Imaging and Cardiology CT Scan - head: other (No acute pathology noted) Assessment and Plan Assessment and plan: Patient is a 66-year-old female medical history of hypertension, GERD, seizure disorder, vascular dementia, ESRD on hemodialysis (TTS), osteoarthritis, bipolar disorder, schizophrenia, anxiety disorder, and limited mobility currently a resident of [facility] and presented with altered mental status. Patient was initially seen here in the ED the day prior and was discharged but documentation on the chart as patient is currently with altered mental status and unable to provide information shows that the patient was refused by the facility stating that she had been combative and has missed several days of dialysis as a result of behavioral disturbance. On presentation patient was noted to be hypotensive more than normal and was noted with room air oxygen saturation in the 70s and unfortunately went into SVT in the 150s requiring cardiac shock being delivered under conscious sedation. And you are being recommended or requested for admission. Patient remains very lethargic and sedated although easily arousable unable to provide information. Review of her charts from prior shows that her systolic blood pressure runs in the 80s and she is on midodrine outpatient. She is however not on home oxygen. She is currently in the ED on pressors and again unfortunately unable to provide any information. She is oriented to self and place per documentation prior to defibrillation. During one of her last hospitalization she was recommended to have a cholecystectomy which does not appear that he was done at the time. She does not endorse any abdominal pain at this time. During that last admission also she had acute hypoxic respiratory failure but was weaned down to room air prior to discharge Acute hypoxic respiratory failure, Acute on Chronic Hypotension Acute on Chronic Metabolic Encephalopathy Possible Shock Syndrome SVT Elevated troponin, Bipolar disorder, Schizophrenia, Hyperkalemia ESRD on hemodialysis, Anemia of chronic disease, Type 2 NSTEMI GERD Subclinical Hypothyroidism Moderate protein caloric malnutrition PLAN Admit to ICU Spa Coordinator Consult Assistant Hall Director consult Cardiology consult Will defer to milieu therapist about Echo Replace electrolytes Psych Consult for medication management Patient was started on Pressors in the ED, will wean off as tolerated keeping MAP >65. Resume Midodrine Advance Care planning 35 mins. The high probability of a clinically significant, sudden or life threatening deterioration of the [MULTIPLE SYSTEM] system(s) required my full and direct attention, intervention and personal management. The aggregate critical care time was [90] minutes. This time is in addition to time spent performing reported procedures but includes the following: [X] Data Review and interpretation [X] Patient assessment and monitoring of vital signs [X] Documentation [X] Medication orders and management Advance Directives: Yes Plan of care discussed with patient/family: Yes
[2022-04-19] MEDS ORDERED: METOCLOPRAMIDE 10 MG/2 ML INJ IV PRN (09:55)
[2022-04-19] MEDS ORDERED: NALOXONE 0.4 MG/1 ML INJ IV PRN (09:55)
[2022-04-19] MEDS ORDERED: ACETAMINOPHEN 325 MG TAB PO PRN (09:55)
[2022-04-19] MEDS ORDERED: MORPHINE 2 MG/1 ML INJ IV PRN (09:55)
[2022-04-19] MEDS ORDERED: ALBUTEROL 2.5 MG/3 ML NEBU IH PRN (11:16)
--- NOTE | 2022-04-19 11:57 | Progress Note ---
Subjective Date of service: 04/19/22 Interval history: Impression: * End stage renal disease * Syncope * Hypotension * Anemia secondary to ESRD * Secondary hyperparathyroidism Plan: * HD today - UF as tolerated * Will continue TTS schedule * Dose medications for renal function * Avoid potential nephrotoxins * Epogen TIW prn * Renal/HD diet Subjective Principal diagnosis: Syncope Interval history: Patient has no complaints Objective - General Appearance General appearance: well-developed, well-nourished EENT: ATNC Cardiology: regular, S1S2 Gastrointestinal: normal Integumentary: warm and dry Psychiatric: cooperative Objective - Vital Signs Vital signs: Vital Signs - 12hr 04/19/22 04/19/22 04/19/22 04:36 04:46 05:00 Pulse Rate 106 H 103 H 85 Respiratory 19 14 13 Rate Blood Pressure 84/41 O2 Sat by Pulse 94 93 94 Oximetry 04/19/22 04/19/22 04/19/22 05:15 05:30 05:45 Pulse Rate 85 82 85 Respiratory 18 19 20 Rate Blood Pressure 90/50 90/50 84/46 O2 Sat by Pulse 93 92 94 Oximetry 04/19/22 04/19/22 04/19/22 06:00 06:15 06:30 Pulse Rate 86 86 87 Respiratory 21 23 19 Rate Blood Pressure 88/49 81/45 78/44 O2 Sat by Pulse 95 95 96 Oximetry 04/19/22 04/19/22 04/19/22 06:45 07:00 07:15 Pulse Rate 85 83 82 Respiratory 21 20 20 Rate Blood Pressure 93/49 82/46 91/55 O2 Sat by Pulse 96 96 93 Oximetry 04/19/22 04/19/22 04/19/22 07:30 07:45 08:00 Pulse Rate 80 82 81 Respiratory 18 19 18 Rate Blood Pressure 87/50 81/48 84/45 O2 Sat by Pulse 92 95 95 Oximetry 04/19/22 04/19/22 04/19/22 08:15 08:30 08:45 Pulse Rate 84 125 H 142 H Respiratory 20 20 18 Rate Blood Pressure 94/58 89/50 74/53 O2 Sat by Pulse 95 96 95 Oximetry 04/19/22 04/19/22 04/19/22 09:00 09:16 09:30 Pulse Rate 155 H 144 H 104 H Respiratory 21 14 21 Rate Blood Pressure 74/53 82/47 68/37 O2 Sat by Pulse 95 93 100 Oximetry 04/19/22 04/19/22 04/19/22 09:45 10:00 10:15 Pulse Rate 97 H 99 H 93 H Respiratory 19 18 18 Rate Blood Pressure 89/47 92/55 88/46 O2 Sat by Pulse 100 100 100 Oximetry 04/19/22 04/19/22 04/19/22 10:30 10:45 11:00 Pulse Rate 91 H 98 H 93 H Respiratory 17 19 21 Rate Blood Pressure 94/47 109/51 105/60 O2 Sat by Pulse 100 100 100 Oximetry 04/19/22 11:16 Pulse Rate 90 Respiratory 18 Rate Blood Pressure 113/79 O2 Sat by Pulse 100 Oximetry - Lab 04/19/22 04:53 04/19/22 04:53 Most recent lab results Calcium 9.9 mg/dL (8.4-10.2) 04/19/22 04:53 Medications & Allergies - Medications Allergies/Adverse Reactions: Allergies buspirone [From BuSpar] Allergy (Verified 04/18/22 12:22) Unknown Penicillins Allergy (Verified 04/18/22 12:22) Rash corn Adverse Reaction (Verified 04/18/22 12:22) Unknown Home Medications: Home Medications Medication Instructions Recorded Confirmed Last Taken Type Sevelamer Carbonate [Renvela] 0.8 gram PO TIDWM 09/02/20 02/02/22 05/31/21 History HYDROcodone/APAP 5-325 [[facility] 1 each PO Q4HR PRN #30 tablet 05/18/21 02/02/22 Unknown Rx 5-325 mg TAB] ALBUTEROL NEB's [Proventil 0.083% 2.5 mg IH Q3HRT PRN #1 nebu 03/03/22 Unknown Rx NEBS] Clopidogrel [Plavix] 75 mg PO QDAY #90 tablet 03/03/22 Unknown Rx Divalproex [Sarina Serrano] 750 mg PO BID #60 tablet 03/03/22 Unknown Rx LORazepam [Ativan] 1 mg PO DAILY #30 tab 03/03/22 Unknown Rx Memantine Xr [Namenda Xr] 5 mg PO DAILY #30 cap 03/03/22 Unknown Rx Midodrine [Proamatine] 10 mg PO TID #90 tab 03/03/22 Unknown Rx Pantoprazole [Protonix TAB] 40 mg PO DAILY #30 tab 03/03/22 Unknown Rx QUEtiapine [SEROquel] 400 mg PO BID #60 tab 03/03/22 Unknown Rx risperiDONE [RisperDAL] 0.5 mg PO BID #60 tab 03/03/22 Unknown Rx Active Medications: Generic Name Dose Route Start Last Admin Trade Name Freq PRN Reason Stop Dose Admin Acetaminophen 650 mg 04/19/22 09:55 Acetaminophen 325 Mg Tab PO Q6H PRN Pain MILD(1-3)/Fever >100.5/DRAKE Albuterol 2.5 mg 04/19/22 11:16 Albuterol 2.5 Mg/3 Ml Nebu IH Q3HRT PRN Shortness Of Breath Albuterol/Ipratropium 1 ampul 04/19/22 14:00 Ipratropium/Albuterol Sulfate 3 Ml Ampul.Neb IH Q6HRT [facility] Clopidogrel Bisulfate 75 mg 04/19/22 12:00 Clopidogrel 75 Mg Tab PO QDAY [facility] Divalproex Sodium 750 mg 04/19/22 12:[address] 250 Mg Tab PO BID [facility] Heparin Sodium (Porcine) 5,000 unit 04/19/22 14:00 Heparin 5,000 Unit/1 Ml Vial SUB-Q Q8HR [facility] NORepinephrine/NS 8 MG-250 ML 8 mg in 250 mls @ 3.75 mls/hr 04/19/22 09:00 Norepinephrine/Ns 8 Mg-250 Ml (Double Conc) IV TITRATE [facility] Protocol 2 MCG/MIN Lorazepam 1 mg 04/19/22 12:00 Lorazepam 1 Mg Tab PO DAILY [facility] Metoclopramide HCl 5 mg 04/19/22 09:55 Metoclopramide 10 Mg/2 Ml Inj IV Q6H PRN Nausea And Vomiting Midodrine 10 mg 04/19/22 14:00 Midodrine 10 Mg Tab PO TID [facility] Miscellaneous Medication 5 mg 04/19/22 10:00 Memantine Xr PO DAILY [facility] Morphine Sulfate 2 mg 04/19/22 09:55 Morphine 2 Mg/1 Ml Inj IV Q4H PRN Pain, Moderate (4-6) Naloxone HCl 0.1 mg 04/19/22 09:55 Naloxone 0.4 Mg/1 Ml Inj IV Q2MIN PRN Res Rate </= 8 or 02 SAT < 92% Pantoprazole Sodium 40 mg 04/19/22 12:00 Pantoprazole 40 Mg Tab PO QDAC [facility] Quetiapine Fumarate 400 mg 04/19/22 12:00 Quetiapine 200 Mg Tab PO BID [facility] Risperidone 0.5 mg 04/19/22 12:00 Risperidone 1 Mg Tab PO BID [facility] Senna 8.6 mg 04/19/22 12:00 Sennosides 8.6 Mg Tab PO BID [facility] Sevelamer Carbonate 800 mg 04/19/22 12:00 Sevelamer Carbonate 800 Mg Tab PO TIDWM [facility] Sodium Chloride 10 ml 04/19/22 12:00 Sodium Chloride 0.9% 10 Ml Flush Syringe IV BID [facility] Sodium Chloride 10 ml 04/19/22 11:19 Sodium Chloride 0.9% 10 Ml Flush Syringe IV PRN PRN LINE FLUSH
[2022-04-19] MEDS: NORepinephrine/NS 8 MG-250 ML 8 MG/250 ML INFUS..BTL IV SCH (12:00)
--- NOTE | 2022-04-19 12:21 | Consultation ---
History of Present Illness Consult date: 04/19/22 Requesting physician: MELINDA BOWEN Reason for consult: other (Hypotesnion, SVT, ESRD) History of present illness: Patient is a 66-year-old female medical history of hypertension, GERD, seizure disorder, vascular dementia, ESRD on hemodialysis (TTS), osteoarthritis, bipolar disorder, schizophrenia, anxiety disorder, and limited mobility currently a resident of [facility] ([place]) and presented with altered mental status. On presentation patient was noted to be hypotensive and in SVT in the 150s requiring cardiac shock being delivered under conscious sedation. She is currently in the ED on pressors and a critical care consult was placed. Thank you. As per medical chart review patient had alteration in mental status and weakness for several days and did not receive dialysis yesterday due to her symptoms. Patient presented with mild hypotension that improved with IV fluids and had labs and chest x-ray was subsequently discharged back to the assisted yesterday evening. EMS reports that nurse noted that patient had a room air saturation in the 70s with continued diminished mental status and therefore was sent to the hospital for reevaluation. Apparently at her baseline she is "more lively" than she is today. Accu-Chek reported to be 97. Patient is oriented to self and place but cannot express why she is here today or provide detailed history of present illness. Patient seen and examined in the ED Vitals, labs, medications, chart and imaging reviewed. She is on Norepinphrine for vasopressor support and 3L oxygen via NC Medications and Allergies Allergies Allergy/AdvReac Type Severity Reaction Status Date / Time buspirone [From BuSpar] Allergy Unknown Verified 04/18/22 12:22 Penicillins Allergy Rash Verified 04/18/22 12:22 corn AdvReac Unknown Verified 04/18/22 12:22 Home Medications Medication Instructions Recorded Confirmed Last Taken Type Sevelamer Carbonate [Renvela] 0.8 gram PO TIDWM 09/02/20 02/02/22 05/31/21 History HYDROcodone/APAP 5-325 [[place] 1 each PO Q4HR PRN #30 tablet 05/18/21 02/02/22 Unknown Rx 5-325 mg TAB] ALBUTEROL NEB's [Proventil 0.083% 2.5 mg IH Q3HRT PRN #1 nebu 03/03/22 Unknown Rx NEBS] Clopidogrel [Plavix] 75 mg PO QDAY #90 tablet 03/03/[address] [Depakote Dr] 750 mg PO BID #60 tablet 03/03/22 Unknown Rx LORazepam [Ativan] 1 mg PO DAILY #30 tab 03/03/22 Unknown Rx Memantine Xr [Namenda Xr] 5 mg PO DAILY #30 cap 03/03/22 Unknown Rx Midodrine [Proamatine] 10 mg PO TID #90 tab 03/03/22 Unknown Rx Pantoprazole [Protonix TAB] 40 mg PO DAILY #30 tab 03/03/22 Unknown Rx QUEtiapine [SEROquel] 400 mg PO BID #60 tab 03/03/22 Unknown Rx risperiDONE [RisperDAL] 0.5 mg PO BID #60 tab 03/03/22 Unknown Rx Active Meds: Active Medications Acetaminophen (Acetaminophen 325 Mg Tab) 650 mg PO Q6H PRN PRN Reason: Pain MILD(1-3)/Fever >100.5/DRAKE Albuterol (Albuterol 2.5 Mg/3 Ml Nebu) 2.5 mg IH Q3HRT PRN PRN Reason: Shortness Of Breath Albuterol/Ipratropium (Ipratropium/Albuterol Sulfate 3 Ml Ampul.Neb) 1 ampul IH Q6HRT [facility] Clopidogrel Bisulfate (Clopidogrel 75 Mg Tab) 75 mg PO QDAY [facility] Divalproex Sodium (Divalproex Dr 250 Mg Tab) 750 mg PO BID [facility] Heparin Sodium (Porcine) (Heparin 5,000 Unit/1 Ml Vial) 5,000 unit SUB-Q Q8HR [facility] NORepinephrine/NS 8 MG-250 ML (Norepinephrine/Ns 8 Mg-250 Ml (Double Conc)) 8 mg in 250 mls @ 3.75 mls/hr IV TITRATE [facility]; Protocol Lorazepam (Lorazepam 1 Mg Tab) 1 mg PO DAILY [facility] Metoclopramide HCl (Metoclopramide 10 Mg/2 Ml Inj) 5 mg IV Q6H PRN PRN Reason: Nausea And Vomiting Midodrine (Midodrine 10 Mg Tab) 10 mg PO TID [facility] Miscellaneous Medication (Memantine Xr) 5 mg PO DAILY [facility] Morphine Sulfate (Morphine 2 Mg/1 Ml Inj) 2 mg IV Q4H PRN PRN Reason: Pain, Moderate (4-6) Naloxone HCl (Naloxone 0.4 Mg/1 Ml Inj) 0.1 mg IV Q2MIN PRN PRN Reason: Res Rate </= 8 or 02 SAT < 92% Pantoprazole Sodium (Pantoprazole 40 Mg Tab) 40 mg PO QDAC [facility] Quetiapine Fumarate (Quetiapine 200 Mg Tab) 400 mg PO BID [facility] Risperidone (Risperidone 1 Mg Tab) 0.5 mg PO BID [facility] Senna (Sennosides 8.6 Mg Tab) 8.6 mg PO BID [facility] Sevelamer Carbonate (Sevelamer Carbonate 800 Mg Tab) 800 mg PO TIDWM [facility] Sodium Chloride (Sodium Chloride 0.9% 10 Ml Flush Syringe) 10 ml IV BID [facility] Sodium Chloride (Sodium Chloride 0.9% 10 Ml Flush Syringe) 10 ml IV PRN PRN PRN Reason: LINE FLUSH Review of Systems ROS unobtainable: due to mental status Physical Examination Vital signs: Vital Signs Pulse Resp Pulse Ox 106 H 19 94 04/19/22 04:36 04/19/22 04:36 04/19/22 04:36 General appearance: lethargic, appears uncomfortable, other (chronically ill looking) Eyes: non-icteric ENT: oropharynx dry Neck: supple, no lymphadenopathy, no JVD Effort: mildly labored Ascultation: Bilateral: diminished breath sounds Cardiovascular: other (tachycardia,S1,S2) Gastrointestinal: normoactive bowel sounds, soft, non-tender Extremities: no cyanosis, no edema, pulses normal, cool, other (RUExt graft) non-focal exam (moves all extreemites), pupils equal and round other (unable to assess secondary to mental status) Results - Laboratory Findings CBC and BMP: 04/20/22 05:30 04/20/22 05:30 Abnormal lab findings: Abnormal Labs 04/19/22 04/19/22 04/19/22 04:53 04:53 04:53 RBC 3.06 L Hgb 8.6 L Hct 28.0 L RDW 16.3 H [place] % (Auto) 11.3 H Potassium 5.1 H Carbon Dioxide 21 L BUN 94 H Creatinine 6.3 H Troponin T 0.415 H* Albumin 2.7 L Free T4 0.28 L - Diagnostic Findings Additional studies: CT Head- no acute changes Assessment and Plan Acute on Chronic Hypotension Acute on Chronic Metabolic Encephalopathy SVT Elevated troponin, possibly demand ischemia Bipolar disorder/Schizophrenia, Hyperkalemia ESRD on hemodialysis, Anemia of chronic disease -wean vasopressor support for MAP>65 -Resume home midodrine, prior to administering her any oral medication- get bedside swallow evaluation to ensure she is not aspirating -Titrate supplemental oxygen to keep SpO2 90-92% -Serial troponins, EKG- this appears to be demand ischemia -Supportive HD per Renal service -Get cultures, r/o infection as a reason for her hypotension -Monitor temperature curve and WCC trend -Resume home medications as clinically indicated -Supportive HD - avoid nephrotoxins, dose all medications for GFR/CrCL - void benzodiazepines, reduce the possibility of delirium -Maintain sleep-wake cycle -Mobility, off loading, frequent turning per facility protocol to prevent pressure ulcers - prn analgesia per pain score - VTE prophylaxis - Monitor hemodynamics closely -Nutrition support to be addressed -Supportive trasnfusions as clinically indicated t keep HgB >7g/dL CONDITION: CRITICAL PROGNOSIS: GUARDED CODE STATUS: FULL CODE The high probability of a clinically significant, sudden or life threatening deterioration of the multiple systems required my full and direct attention, intervention and personal management. The aggregate critical care time was [35] minutes. This time is in addition to time spent performing reported procedures but includes the following: [X] Data Review and interpretation [X] Patient assessment and monitoring of vital signs [X] Documentation [X] Medication orders and management
--- NOTE | 2022-04-19 12:27 | Consultation ---
History of Present Illness Consult reason: other (SVT) History of present illness: Patient is a 66-year-old female with a past medical history of end-stage renal disease on hemodialysis, hypertension, seizure disorder, bipolar disorder, schizophrenia, anxiety, limited mobility, and vascular dementia who presented to the ED from [facility] with report of altered mental status for several days. History is taken from documentation and discussion with staff due to mental status. Per Per documentation patient has had AMS and weakness for several days per documentation patient has had AMS and weakness for several days and has not received dialysis due to her symptoms. Patient was found to have O2 sats in the 70s on room air by EMS. Per conversation with staff patient was to get hemodialysis however was held due to patient having low BPs. Patient was receiving fluids and apparently went into SVT. Patient given adenosine x2 and cardioverted with return to normal sinus rhythm. Patient also found to have elevated troponin. Of note Patient was brought to the ED yesterday for similar complaints however patient was given IV fluids and discharged home. Patient also has chronically low BP uses midodrine as an outpatient. Patient has been seen by our practice during previous admissions however has not followed up as an outpatient. Cardiology was consulted for SVT Past History Past Medical History: ESRD, hypertension, other (See HPI) Past Surgical History: hysterectomy Family history: other (unable to obtain due to mental status) Medications and Allergies Allergies Allergy/AdvReac Type Severity Reaction Status Date / Time buspirone [From BuSpar] Allergy Unknown Verified 04/18/22 12:22 Penicillins Allergy Rash Verified 04/18/22 12:22 corn AdvReac Unknown Verified 04/18/22 12:22 Home Medications Medication Instructions Recorded Confirmed Last Taken Type Sevelamer Carbonate [Renvela] 0.8 gram PO TIDWM 09/02/20 02/02/22 05/31/21 History HYDROcodone/APAP 5-325 [[place] 1 each PO Q4HR PRN #30 tablet 05/18/21 02/02/22 Unknown Rx 5-325 mg TAB] ALBUTEROL NEB's [Proventil 0.083% 2.5 mg IH Q3HRT PRN #1 nebu 03/03/22 Unknown Rx NEBS] Clopidogrel [Plavix] 75 mg PO QDAY #90 tablet 03/03/22 Unknown Rx Divalproex [Depakote Dr] 750 mg PO BID #60 tablet 03/03/22 Unknown Rx LORazepam [Ativan] 1 mg PO DAILY #30 tab 03/03/22 Unknown Rx Memantine Xr [Namenda Xr] 5 mg PO DAILY #30 cap 03/03/22 Unknown Rx Midodrine [Proamatine] 10 mg PO TID #90 tab 03/03/22 Unknown Rx Pantoprazole [Protonix TAB] 40 mg PO DAILY #30 tab 03/03/22 Unknown Rx QUEtiapine [SEROquel] 400 mg PO BID #60 tab 03/03/22 Unknown Rx risperiDONE [RisperDAL] 0.5 mg PO BID #60 tab 03/03/22 Unknown Rx Active Meds: Active Medications Acetaminophen (Acetaminophen 325 Mg Tab) 650 mg PO Q6H PRN PRN Reason: Pain MILD(1-3)/Fever >100.5/DRAKE Albuterol (Albuterol 2.5 Mg/3 Ml Nebu) 2.5 mg IH Q3HRT PRN PRN Reason: Shortness Of Breath Albuterol/Ipratropium (Ipratropium/Albuterol Sulfate 3 Ml Ampul.Neb) 1 ampul IH Q6HRT [facility] Clopidogrel Bisulfate (Clopidogrel 75 Mg Tab) 75 mg PO QDAY [facility] Divalproex Sodium (Divalproex Dr 250 Mg Tab) 750 mg PO BID [facility] Heparin Sodium (Porcine) (Heparin 5,000 Unit/1 Ml Vial) 5,000 unit SUB-Q Q8HR [facility] NORepinephrine/NS 8 MG-250 ML (Norepinephrine/Ns 8 Mg-250 Ml (Double Conc)) 8 mg in 250 mls @ 3.75 mls/hr IV TITRATE [facility]; Protocol Lorazepam (Lorazepam 1 Mg Tab) 1 mg PO DAILY [facility] Metoclopramide HCl (Metoclopramide 10 Mg/2 Ml Inj) 5 mg IV Q6H PRN PRN Reason: Nausea And Vomiting Midodrine (Midodrine 10 Mg Tab) 10 mg PO TID [facility] Miscellaneous Medication (Memantine Xr) 5 mg PO DAILY [facility] Morphine Sulfate (Morphine 2 Mg/1 Ml Inj) 2 mg IV Q4H PRN PRN Reason: Pain, Moderate (4-6) Naloxone HCl (Naloxone 0.4 Mg/1 Ml Inj) 0.1 mg IV Q2MIN PRN PRN Reason: Res Rate </= 8 or 02 SAT < 92% Pantoprazole Sodium (Pantoprazole 40 Mg Tab) 40 mg PO QDAC [facility] Quetiapine Fumarate (Quetiapine 200 Mg Tab) 400 mg PO BID [facility] Risperidone (Risperidone 1 Mg Tab) 0.5 mg PO BID [facility] Senna (Sennosides 8.6 Mg Tab) 8.6 mg PO BID [facility] Sevelamer Carbonate (Sevelamer Carbonate 800 Mg Tab) 800 mg PO TIDWM [facility] Sodium Chloride (Sodium Chloride 0.9% 10 Ml Flush Syringe) 10 ml IV BID [facility] Sodium Chloride (Sodium Chloride 0.9% 10 Ml Flush Syringe) 10 ml IV PRN PRN PRN Reason: LINE FLUSH Review of Systems ROS unobtainable: due to mental status Physical Examination Vital Signs Pulse Resp Pulse Ox 106 H 19 94 04/19/22 04:36 04/19/22 04:36 04/19/22 04:36 General appearance: other (AMS) HEENT: Positive: Mucus Membranes Dry Neck: Positive: trachea midline Cardiac: Positive: Reg Rate and Rhythm Lungs: Positive: Normal Breath Sounds Neuro: Positive: Other (unable to assess) Abdomen: Positive: Soft Skin: Negative: Rash, Suspicious Lesions, Ulceration Extremities: Present: upper extr. pulses, Cool Results 04/19/22 04:53 04/19/22 04:53 Cardiac Enzymes 04/19/22 04/19/22 04/19/22 Range/Units 04:53 04:53 04:53 WBC 5.2 (4.5-11.0) K/mm3 RBC 3.06 L (3.65-5.03) M/mm3 Hgb 8.6 L (10.1-14.3) gm/dl Hct 28.0 L (30.3-42.9) % MCV 91 (79-97) fl MCH 28 (28-32) pg MCHC 31 (30-34) % RDW 16.3 H (13.2-15.2) % Plt Count 321 (140-440) K/mm3 Lymph % (Auto) 27.3 (13.4-35.0) % [place] % (Auto) 11.3 H (0.0-7.3) % Eos % (Auto) 3.2 (0.0-4.3) % Baso % (Auto) 0.6 (0.0-1.8) % Lymph # (Auto) 1.4 (1.2-5.4) K/mm3 [place] # (Auto) 0.6 (0.0-0.8) K/mm3 Eos # (Auto) 0.2 (0.0-0.4) K/mm3 Baso # (Auto) 0.0 (0.0-0.1) K/mm3 Seg Neutrophils % 57.6 (40.0-70.0) % Seg Neutrophils # 3.0 (1.8-7.7) K/mm3 Sodium 142 (137-145) mmol/L Potassium 5.1 H (3.6-5.0) mmol/L Chloride 98.8 (98-107) mmol/L Carbon Dioxide 21 L (22-30) mmol/L Anion Gap 27 mmol/L BUN 94 H (7-17) mg/dL Creatinine 6.3 H (0.6-1.2) mg/dL Estimated GFR 8 ml/min BUN/Creatinine Ratio 15 % Glucose 80 (65-100) mg/dL Lactic Acid 1.30 (0.7-2.0) mmol/L Calcium 9.9 (8.4-10.2) mg/dL Total Bilirubin 0.50 (0.1-1.2) mg/dL AST 15 (5-40) units/L ALT 8 (7-56) units/L Alkaline Phosphatase 112 (35-129) units/L Ammonia (25-60) umol/L Troponin T 0.415 H* (0.00-0.029) ng/mL Total Protein 7.5 (6.3-8.2) g/dL Albumin 2.7 L (3.9-5) g/dL Albumin/Globulin Ratio 0.6 % TSH (0.270-4.200) mlU/mL Free T4 (0.76-1.46) ng/dL 04/19/22 04/19/22 04/19/22 Range/Units 04:53 04:53 07:14 WBC (4.5-11.0) K/mm3 RBC (3.65-5.03) M/mm3 Hgb (10.1-14.3) gm/dl Hct (30.3-42.9) % MCV (79-97) fl MCH (28-32) pg MCHC (30-34) % RDW (13.2-15.2) % Plt Count (140-440) K/mm3 Lymph % (Auto) (13.4-35.0) % [place] % (Auto) (0.0-7.3) % Eos % (Auto) (0.0-4.3) % Baso % (Auto) (0.0-1.8) % Lymph # (Auto) (1.2-5.4) K/mm3 [place] # (Auto) (0.0-0.8) K/mm3 Eos # (Auto) (0.0-0.4) K/mm3 Baso # (Auto) (0.0-0.1) K/mm3 Seg Neutrophils % (40.0-70.0) % Seg Neutrophils # (1.8-7.7) K/mm3 Sodium (137-145) mmol/L Potassium (3.6-5.0) mmol/L Chloride (98-107) mmol/L Carbon Dioxide (22-30) mmol/L Anion Gap mmol/L BUN (7-17) mg/dL Creatinine (0.6-1.2) mg/dL Estimated GFR ml/min BUN/Creatinine Ratio % Glucose (65-100) mg/dL Lactic Acid 1.60 (0.7-2.0) mmol/L Calcium (8.4-10.2) mg/dL Total Bilirubin (0.1-1.2) mg/dL AST (5-40) units/L ALT (7-56) units/L Alkaline Phosphatase (35-129) units/L Ammonia 25.0 (25-60) umol/L Troponin T (0.00-0.029) ng/mL Total Protein (6.3-8.2) g/dL Albumin (3.9-5) g/dL Albumin/Globulin Ratio % TSH 1.700 (0.270-4.200) mlU/mL Free T4 0.28 L (0.76-1.46) ng/dL CBC 04/19/22 Range/Units 04:53 WBC 5.2 (4.5-11.0) K/mm3 RBC 3.06 L (3.65-5.03) M/mm3 Hgb 8.6 L (10.1-14.3) gm/dl Hct 28.0 L (30.3-42.9) % Plt Count 321 (140-440) K/mm3 Lymph # (Auto) 1.4 (1.2-5.4) K/mm3 [place] # (Auto) 0.6 (0.0-0.8) K/mm3 Eos # (Auto) 0.2 (0.0-0.4) K/mm3 Baso # (Auto) 0.0 (0.0-0.1) K/mm3 Comprehensive Metabolic Panel 04/19/22 Range/Units 04:53 Sodium 142 (137-145) mmol/L Potassium 5.1 H (3.6-5.0) mmol/L Chloride 98.8 (98-107) mmol/L Carbon Dioxide 21 L (22-30) mmol/L BUN 94 H (7-17) mg/dL Creatinine 6.3 H (0.6-1.2) mg/dL Glucose 80 (65-100) mg/dL Calcium 9.9 (8.4-10.2) mg/dL AST 15 (5-40) units/L ALT 8 (7-56) units/L Alkaline Phosphatase 112 (35-129) units/L Total Protein 7.5 (6.3-8.2) g/dL Albumin 2.7 L (3.9-5) g/dL - Imaging and Cardiology Echo: report reviewed EKG interpretations - Telemetry EKG Rhythm: Sinus Tachycardia - EKG Sinus rhythms and dysrhythmias: sinus tachycardia Assessment and Plan Patient is a 66-year-old female with a past medical history of end-stage renal disease on hemodialysis, hypertension, seizure disorder, bipolar disorder, schizophrenia, anxiety, limited mobility, and vascular dementia who presented to the ED from [facility] with report of altered mental status for several days AMS End-stage renal disease on hemodialysis-nephrology following SVT Hypotension-currently on pressors Schizophrenia Vascular dementia Bipolar disorder Hypotension Echo 01/31/2022-EF 60 to 65%. Doppler flow pattern suggests impaired LV relaxation. Right ventricle systolic function is normal trace aortic regurgitation. Trace mitral regurgitation. Plan: EKG shows sinus tach 106 nonspecific T abnormalities. No acute ischemic changes Troponins noted to be elevated but have downtrended Suspect NSTEMI type II in setting of end-stage renal disease with missed hemodialysis and following cardioversion Patient currently on Lipitor and Plavix Due to patient's mental status and comorbidities currently recommend conservative management No MARGOTH, ARB, beta-hernan due to hypotension and currently requiring pressors Recieved call lated in the [facility] that patient went into afib wwith RVR. will initiate amio bolus and gtt Initiate heparin gtt for anticoagulation with close monitoring of H&H Defer volume management to nephrology due to patient renal function Continue to monitor Patient seen in conjunction with Dr. Dumont who agrees with this plan of care 30 minutes of critical care time spent in care and coordination of patient - Patient Problems (1) Altered mental status Current Visit: Yes Status: Acute (2) Elevated troponin Current Visit: Yes Status: Acute (3) Uremic encephalopathy Current Visit: Yes Status: Acute (4) ESRD (end stage renal disease) on dialysis Current Visit: Yes Status: Chronic (5) Hypotension Current Visit: Yes Status: Chronic Qualifiers: (6) Schizophrenia Current Visit: Yes Status: Chronic Qualifiers: (7) Acute encephalopathy Current Visit: No Status: Acute (8) Bipolar disorder Current Visit: No Status: Acute (9) Cerebral atherosclerosis Current Visit: No Status: Acute
--- NOTE | 2022-04-19 12:35 | Consultation ---
History of Present Illness - Reason for Consult end stage renal disease - History of Present Illness 66-year-old female past medical history of hypertension, GERD, seizure disorder, vascular dementia, ESRD on hemodialysis (TTS), osteoarthritis, bipolar disorder, schizophrenia, anxiety disorder, and limited mobility presents from [facility] with alteration mental status. Patient apparently was seen here yesterday for the same by another ED provider. As per medical chart review patient had alteration in mental status and weakness for several days and did not receive dialysis yesterday due to her symptoms. Patient presented with mild hypotension that improved with IV fluids and had labs and chest x-ray was subsequently discharged back to the shelter yesterday evening. EMS reports that nurse noted that patient had a room air saturation in the 70s with continued diminished mental status and therefore was sent to the hospital for reevaluation. Apparently at her baseline she is "more lively" than she is today. Accu-Chek reported to be 97. Patient is oriented to self and place but cannot express why she is here today or provide detailed history of present illness. Comment: Unobtainable due to pts medical conditions - Past Medical History Hx Hypertension: Yes Hx Heart Attack/AMI: No (normal LV function on JAYDEN 08/2020) Hx Diabetes: Yes Hx GERD: Yes Hx Liver Disease: No Hx Arthritis: Yes (ARTHROPATHY) Hx Seizures: Yes Hx Psychiatric Treatment: Yes (bipolar,schizophrenia,severe anxiety) Hx Dementia: Yes Additional medical history: HD - Surgical History Additional Surgical History: hysterectomy, right chest wall permacath - Social History Smoking Status: Never Smoker Past History Past Medical History: ESRD, hypertension, other (See HPI) Past Surgical History: hysterectomy Family history: other (unable to obtain due to mental status) Medications and Allergies Allergies Allergy/AdvReac Type Severity Reaction Status Date / Time buspirone [From BuSpar] Allergy Unknown Verified 04/18/22 12:22 Penicillins Allergy Rash Verified 04/18/22 12:22 corn AdvReac Unknown Verified 04/18/22 12:22 Home Medications Medication Instructions Recorded Confirmed Last Taken Type Sevelamer Carbonate [Renvela] 0.8 gram PO TIDWM 09/02/20 02/02/22 05/31/21 History HYDROcodone/APAP 5-325 [[place] 1 each PO Q4HR PRN #30 tablet 05/18/21 02/02/22 Unknown Rx 5-325 mg TAB] ALBUTEROL NEB's [Proventil 0.083% 2.5 mg IH Q3HRT PRN #1 nebu 03/03/22 Unknown Rx NEBS] Clopidogrel [Plavix] 75 mg PO QDAY #90 tablet 03/03/[address] [Depakote Dr] 750 mg PO BID #60 tablet 03/03/22 Unknown Rx LORazepam [Ativan] 1 mg PO DAILY #30 tab 03/03/22 Unknown Rx Memantine Xr [Namenda Xr] 5 mg PO DAILY #30 cap 03/03/22 Unknown Rx Midodrine [Proamatine] 10 mg PO TID #90 tab 03/03/22 Unknown Rx Pantoprazole [Protonix TAB] 40 mg PO DAILY #30 tab 03/03/22 Unknown Rx QUEtiapine [SEROquel] 400 mg PO BID #60 tab 03/03/22 Unknown Rx risperiDONE [RisperDAL] 0.5 mg PO BID #60 tab 03/03/22 Unknown Rx Active Meds: Active Medications Acetaminophen (Acetaminophen 325 Mg Tab) 650 mg PO Q6H PRN PRN Reason: Pain MILD(1-3)/Fever >100.5/DRAKE Albuterol (Albuterol 2.5 Mg/3 Ml Nebu) 2.5 mg IH Q3HRT PRN PRN Reason: Shortness Of Breath Albuterol/Ipratropium (Ipratropium/Albuterol Sulfate 3 Ml Ampul.Neb) 1 ampul IH Q6HRT [facility] Clopidogrel Bisulfate (Clopidogrel 75 Mg Tab) 75 mg PO QDAY [facility] Divalproex Sodium (Divalproex Dr 250 Mg Tab) 750 mg PO BID [facility] Heparin Sodium (Porcine) (Heparin 5,000 Unit/1 Ml Vial) 5,000 unit SUB-Q Q8HR [facility] NORepinephrine/NS 8 MG-250 ML (Norepinephrine/Ns 8 Mg-250 Ml (Double Conc)) 8 mg in 250 mls @ 3.75 mls/hr IV TITRATE [facility]; Protocol Lorazepam (Lorazepam 1 Mg Tab) 1 mg PO DAILY [facility] Metoclopramide HCl (Metoclopramide 10 Mg/2 Ml Inj) 5 mg IV Q6H PRN PRN Reason: Nausea And Vomiting Midodrine (Midodrine 10 Mg Tab) 10 mg PO TID [facility] Miscellaneous Medication (Memantine Xr) 5 mg PO DAILY [facility] Morphine Sulfate (Morphine 2 Mg/1 Ml Inj) 2 mg IV Q4H PRN PRN Reason: Pain, Moderate (4-6) Naloxone HCl (Naloxone 0.4 Mg/1 Ml Inj) 0.1 mg IV Q2MIN PRN PRN Reason: Res Rate </= 8 or 02 SAT < 92% Pantoprazole Sodium (Pantoprazole 40 Mg Tab) 40 mg PO QDAC [facility] Quetiapine Fumarate (Quetiapine 200 Mg Tab) 400 mg PO BID [facility] Risperidone (Risperidone 1 Mg Tab) 0.5 mg PO BID [facility] Senna (Sennosides 8.6 Mg Tab) 8.6 mg PO BID [facility] Sevelamer Carbonate (Sevelamer Carbonate 800 Mg Tab) 800 mg PO TIDWM [facility] Sodium Chloride (Sodium Chloride 0.9% 10 Ml Flush Syringe) 10 ml IV BID [facility] Sodium Chloride (Sodium Chloride 0.9% 10 Ml Flush Syringe) 10 ml IV PRN PRN PRN Reason: LINE FLUSH Exam - Vital Signs Vital signs: Vital Signs Pulse Resp Pulse Ox 106 H 19 94 04/19/22 04:36 04/19/22 04:36 04/19/22 04:36 - Physical Exam Narrative exam: General: No acute distress Head: Atraumatic Eyes: normal appearance ENT: Dry mucous Neck: Normal appearance Chest: Clear to auscultation bilaterally CV: Regular rate and rhythm, right arm dialysis access Abdomen: Soft, normal bowel sounds, nontender, nondistended, no rebound or guarding Extremity: Normal inspection, full range of motion Neuro: Lethargic, answer some questions. Oriented to self and place but not to year. Mild tremor noted to left upper and lower extremity with movement. 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 5/5 right hand stucco mason. Equal foot dorsiflexion. Results - Lab Results 04/19/22 04:53 04/19/22 04:53 Most recent lab results Calcium 9.9 mg/dL (8.4-10.2) 04/19/22 04:53 Assessment and Plan Impression: * End stage renal disease * AMS * SIRS * Hypotension * Anemia secondary to ESRD * Secondary hyperparathyroidism Plan: * Will continue TTS schedule if hemodynamically stable * Dose medications for renal function * cards notes reviewed * add midodrine if ok with cards * keep MAP>65, vasopressors prn * Avoid potential nephrotoxins * Epogen TIW prn * Renal/HD diet
[2022-04-19] MEDS ORDERED: SODIUM POLYSTYRENE 15 GM/60 ML ORAL LIQD PO SCH (13:00)
[2022-04-19] MEDS ORDERED: HEPARIN 5,000 UNIT/1 ML VIAL SUB-Q SCH (14:00)
[2022-04-19] MEDS: MIDODRINE 10 MG TAB PO SCH ×2 (14:30→21:04)
--- NOTE | 2022-04-19 14:45 | Procedure Note ---
Date of procedure: 04/19/22 Pre-op diagnosis: COVID-19 positive test (U07.1, COVID-19) with Acute Respiratory Failure Post-op diagnosis: same Procedure: Right femoral vein triple-lumen catheter placement under ultrasound guidance The patient was prepped and draped in the usual sterile fashion. Informed consent was obtained. A timeout was taken with the patient and nurse at bedside to verify the correct patient, correct procedure, and correct operative site. Local anesthesia obtained with 1% lidocaine. The Seldinger technique was utilized under ultrasound guidance to introduce a seeker needle into the right femoral vein under ultrasound guidance without difficulty. A guidewire was then advanced via the seeker needle into the right femoral vein and the seeker needle subsequently removed over the guidewire. A scalpel was used to incise the skin at the insertion site. A dilator was then passed over the guidewire into the right femoral vein and subsequently removed. A preflush triple-lumen catheter was then advanced over the guidewire into the right right femoral vein and the guidewire subsequently removed. All 3 ports flush and drawl with ease. 3-0 silk suture was utilized to secure the triple-lumen catheter in place. A Biopatch was placed at the insertion site. A sterile dressing was utilized to cover the triple-lumen catheter. Estimated blood loss minimal. Complications none. Specimens none. Anesthesia: local Surgeon: LYN MARCIAL Estimated blood loss: minimal Pathology: none Condition: critical Disposition: ICU
[2022-04-19] MEDS: risperiDONE 1 MG TAB PO SCH ×2 (15:38→21:50)
[2022-04-19] MEDS: DIVALPROEX DR 250 MG TAB PO SCH ×2 (15:38→21:51)
[2022-04-19] MEDS: SENNOSIDES 8.6 MG TAB PO SCH (15:39)
[2022-04-19] MEDS: PANTOPRAZOLE 40 MG TAB PO SCH (15:39)
[2022-04-19] MEDS: CLOPIDOGREL 75 MG TAB PO SCH (15:39)
[2022-04-19] MEDS: QUEtiapine 200 MG TAB PO SCH ×2 (15:39→21:51)
[2022-04-19] MEDS: LORazepam 1 MG TAB PO SCH (15:39)
[2022-04-19] MEDS: SEVELAMER CARBONATE 800 MG TAB PO SCH ×2 (15:40→17:57)
--- NOTE | 2022-04-19 16:02 | Consultation ---
History of Present Illness - Reason for Consult Consult date: 04/19/22 Reason for consult: hx of schizophrenia - History of Present Psychiatric Illness HPI: 66-year-old female past medical history of hypertension, GERD, seizure disorder, vascular dementia, ESRD on hemodialysis (TTS), osteoarthritis, bipolar disorder, schizophrenia, anxiety disorder, and limited mobility presents from [facility] with alteration mental status. Patient apparently was seen here yesterday for the same by another ED provider. As per medical chart review patient had alteration in mental status and weakness for several days and did not receive dialysis yesterday due to her symptoms. Patient presented with mild hypotension that improved with IV fluids and had labs and chest x-ray was subsequently discharged back to the long term yesterday evening. EMS reports that nurse noted that patient had a room air saturation in the 70s with continued diminished mental status and therefore was sent to the hospital for reevaluation. Apparently at her baseline she is "more lively" than she is today. Accu-Chek reported to be 97. Patient is oriented to self and place but cannot express why she is here today or provide detailed history of present. The patient was seen today. She is lying in bed awake. She has poor insight. She is calm, cooperative and pleasant. She is confused. She does know who she is and that she is in the hospital. But she doesn't remember why she was brought. The patient says she lives in a local long term. She denies any major psych history outside of depression, but it is documented that the patient has a history of schizophrenia and bipolar. The patient denies being suicidal or having any thoughts of and dying. She also denies any homicidal thoughts or hallucinations. She denies any illicit drug use. PAST PSYCHIATRIC HISTORY: Could not obtain PAST MEDICAL HISTORY: None reported Family Psychiatric History: None reported or documented SOCIAL HISTORY could not adequately obtain REVIEW OF SYSTEMS Constitutional: Negative for weight loss ENT: Negative for stridor Respiratory: Negative for cough or hemoptysis All other systems reviewed and are negative MENTAL STATUS EXAMINATION General Appearance and Behavior: Age appropriate, good hygiene, wearing amanda ropriate clothes, calm, cooperative, pleasant Cooperation: cooperative Psychomotor Behavior: Normal Mood: okay Affect and affective range: congruent Thought Process: circumstantial Thought Content: Denies Speech: Normal tone and pace Suicidal Ideation: Denies Homicidal Ideation: Denies Hallucination: Denies Impulse Control: Normal Insight and Judgment: limited insight and poor judgment Memory: Poor Attention: Attentive Orientation: confused Diagnoses: (1) Hx of Schizophrenia Treatment Plan: Agree with continuation of home meds MEDICAL: Per primary team DELIRIUM PRECAUTIONS: Please re-orient patient frequently, keep lights on during the day, and minimize benzodiazepines and opiates as these medications could worsen patient's confusion. 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 Thanks. Thank you for the consult. Please contact with any questions and/or concerns. Case staffed with Dr. Goodiwn Medications and Allergies Allergies Allergy/AdvReac Type Severity Reaction Status Date / Time buspirone [From BuSpar] Allergy Unknown Verified 04/18/22 12: Penicillins Allergy Rash Verified 04/18/22 12: corn AdvReac Unknown Verified 04/18/22 12:22 Home Medications Medication Instructions Recorded Confirmed Last Taken Type Sevelamer Carbonate [Renvela] 0.8 gram PO TIDWM 09/02/20 02/02/22 05/31/21 History HYDROcodone/APAP 5-325 [[place] 1 each PO Q4HR PRN #30 tablet 05/18/21 02/02/22 Unknown Rx 5-325 mg TAB] ALBUTEROL NEB's [Proventil 0.083% 2.5 mg IH Q3HRT PRN #1 nebu 03/03/22 Unknown Rx NEBS] Clopidogrel [Plavix] 75 mg PO QDAY #90 tablet 03/03/22 Unknown Rx Divalproex [Sarina Serrano] 750 mg PO BID #60 tablet 03/03/22 Unknown Rx LORazepam [Ativan] 1 mg PO DAILY #30 tab 03/03/22 Unknown Rx Memantine Xr [Namenda Xr] 5 mg PO DAILY #30 cap 03/03/22 Unknown Rx Midodrine [Proamatine] 10 mg PO TID #90 tab 03/03/22 Unknown Rx Pantoprazole [Protonix TAB] 40 mg PO DAILY #30 tab 03/03/22 Unknown Rx QUEtiapine [SEROquel] 400 mg PO BID #60 tab 03/03/22 Unknown Rx risperiDONE [RisperDAL] 0.5 mg PO BID #60 tab 03/03/22 Unknown Rx Active Meds: Active Medications Acetaminophen (Acetaminophen 325 Mg Tab) 650 mg PO Q6H PRN PRN Reason: Pain MILD(1-3)/Fever >100.5/DRAKE Albuterol (Albuterol 2.5 Mg/3 Ml Nebu) 2.5 mg IH Q3HRT PRN PRN Reason: Shortness Of Breath Albuterol/Ipratropium (Ipratropium/Albuterol Sulfate 3 Ml Ampul.Neb) 1 ampul IH Q6HRT [facility] Clopidogrel Bisulfate (Clopidogrel 75 Mg Tab) 75 mg PO QDAY [facility] Divalproex Sodium (Divalproex Dr 250 Mg Tab) 750 mg PO BID [facility] Heparin Sodium (Porcine) (Heparin 5,000 Unit/1 Ml Vial) 5,000 unit SUB-Q Q8HR [facility] NORepinephrine/NS 8 MG-250 ML (Norepinephrine/Ns 8 Mg-250 Ml (Double Conc)) 8 mg in 250 mls @ 3.75 mls/hr IV TITRATE [facility]; Protocol Lorazepam (Lorazepam 1 Mg Tab) 1 mg PO DAILY [facility] Metoclopramide HCl (Metoclopramide 10 Mg/2 Ml Inj) 5 mg IV Q6H PRN PRN Reason: Nausea And Vomiting Midodrine (Midodrine 10 Mg Tab) 10 mg PO TID [facility] Miscellaneous Medication (Memantine Xr) 5 mg PO DAILY [facility] Morphine Sulfate (Morphine 2 Mg/1 Ml Inj) 2 mg IV Q4H PRN PRN Reason: Pain, Moderate (4-6) Naloxone HCl (Naloxone 0.4 Mg/1 Ml Inj) 0.1 mg IV Q2MIN PRN PRN Reason: Res Rate </= 8 or 02 SAT < 92% Pantoprazole Sodium (Pantoprazole 40 Mg Tab) 40 mg PO QDAC [facility] Quetiapine Fumarate (Quetiapine 200 Mg Tab) 400 mg PO BID [facility] Risperidone (Risperidone 1 Mg Tab) 0.5 mg PO BID [facility] Senna (Sennosides 8.6 Mg Tab) 8.6 mg PO BID [facility] Sevelamer Carbonate (Sevelamer Carbonate 800 Mg Tab) 800 mg PO TIDWM [facility] Sodium Chloride (Sodium Chloride 0.9% 10 Ml Flush Syringe) 10 ml IV BID [facility] Sodium Chloride (Sodium Chloride 0.9% 10 Ml Flush Syringe) 10 ml IV PRN PRN PRN Reason: LINE FLUSH Sodium Polystyrene Sulfonate (Sodium Polystyrene 15 Gm/60 Ml Oral Liqd) 30 gm PO ONCE@1300 [facility] Stop: 04/19/22 17:00 Mental Status Exam - Vital signs Last Vital Signs Temp Pulse 80 04/19/22 11:50 Resp 14 04/19/22 11:50 BP 98/36 04/19/22 11:50 Pulse Ox 100 04/19/22 11:50 Results Result Diagrams: 04/19/22 04:53 04/19/22 04:53 Abnormal lab results 04/19/22 04/19/22 04/19/22 Range/Units 04:53 04:53 04:53 RBC 3.06 L (3.65-5.03) M/mm3 Hgb 8.6 L (10.1-14.3) gm/dl Hct 28.0 L (30.3-42.9) % RDW 16.3 H (13.2-15.2) % [place] % (Auto) 11.3 H (0.0-7.3) % Potassium 5.1 H (3.6-5.0) mmol/L Carbon Dioxide 21 L (22-30) mmol/L BUN 94 H (7-17) mg/dL Creatinine 6.3 H (0.6-1.2) mg/dL Troponin T 0.415 H* (0.00-0.029) ng/mL Albumin 2.7 L (3.9-5) g/dL Free T4 0.28 L (0.76-1.46) ng/dL All other labs normal.
[2022-04-19] MEDS: IPRATROPIUM/ALBUTEROL SULFATE 3 ML AMPUL.NEB IH SCH ×2 (16:11→21:00)
[2022-04-19] MEDS ORDERED: HEPARIN 10,000 UNITS/10 ML VIAL IV PRN (16:58)
[2022-04-19] MEDS: AMIODARONE 900 MG in DEXTROSE 5% IN WATER 482 ML IV SCH (17:37)
[2022-04-19 17:57] LABS: Hepatitis B Surface Antigen Non-Reactive (Negative); Hepatitis C Virus Antibody Non-Reactive (NonReactive)
[2022-04-19] MEDS: HEPARIN/ 0.45% NACL DRIP 25,000 UNIT/500 ML BAG IV SCH (17:58)
[2022-04-19] MEDS ORDERED: HEPARIN 10,000 UNITS/10 ML VIAL IV ONE (18:00)
[2022-04-19] MEDS ORDERED: AMIODARONE 150 MG in DEXTROSE 5% IN WATER 97 ML IV ONE (18:00)
[2022-04-19 20:01] LABS: Hematocrit 27.8 % (30.3-42.9); Hemoglobin 8.5 gm/dl (10.1-14.3)
[2022-04-19 20:10] LABS: INR 1.28 (0.87-1.13)
[2022-04-19 20:16] LABS: Partial Thromboplastin Time 199.1 Sec. (24.2-36.6)
[2022-04-20] MEDS: SENNOSIDES 8.6 MG TAB PO SCH ×2 (01:26→09:50)
[2022-04-20] MEDS: IPRATROPIUM/ALBUTEROL SULFATE 3 ML AMPUL.NEB IH SCH ×5 (04:58→20:30)
[2022-04-20] MEDS: NORepinephrine/NS 8 MG-250 ML 8 MG/250 ML INFUS..BTL IV SCH ×2 (05:38→20:12)
[2022-04-20 05:41] LABS: Basophils % (Auto) 1.2 % (0.0-1.8); Eosinophils # (Auto) 0.2 K/mm3 (0.0-0.4); Eosinophils % (Auto) 3.8 % (0.0-4.3); Hematocrit 27.1 % (30.3-42.9); Hemoglobin 8.2 gm/dl (10.1-14.3); Lymphocytes # (Auto) 1.1 K/mm3 (1.2-5.4); Lymphocytes % (Auto) 26.7 % (13.4-35.0); Mean Corpuscular HGB Conc 30 % (30-34); Mean Corpuscular Volume 91 fl (79-97); Monocytes # (Auto) 0.6 K/mm3 (0.0-0.8); Monocytes % (Auto) 15.2 % (0.0-7.3); Platelet Count 314 K/mm3 (140-440); Red Blood Count 2.97 M/mm3 (3.65-5.03)
[2022-04-20 06:08] LABS: Albumin 2.4 g/dL (3.9-5); Calcium 9.3 mg/dL (8.4-10.2)
[2022-04-20] MEDS: MIDODRINE 10 MG TAB PO SCH (09:00)
[2022-04-20] MEDS: SEVELAMER CARBONATE 800 MG TAB PO SCH ×3 (09:50→18:07)
[2022-04-20] MEDS: QUEtiapine 200 MG TAB PO SCH (09:50)
[2022-04-20] MEDS: DIVALPROEX DR 250 MG TAB PO SCH (09:50)
[2022-04-20] MEDS: CLOPIDOGREL 75 MG TAB PO SCH (09:50)
[2022-04-20] MEDS: LORazepam 1 MG TAB PO SCH (09:50)
[2022-04-20] MEDS: risperiDONE 1 MG TAB PO SCH (09:50)
--- NOTE | 2022-04-20 11:09 | Progress Note ---
Assessment and Plan Acute hypoxemic respiratory failure, Acute on Chronic Hypotension Acute on Chronic Metabolic Encephalopathy Possible Shock Syndrome SVT Elevated troponin, Bipolar disorder, Schizophrenia, Hyperkalemia ESRD on hemodialysis, Anemia of chronic disease, Type 2 NSTEMI GERD Subclinical Hypothyroidism Moderate protein caloric malnutrition - continue Midodrine but increase to 15 mg p.o. tid for BP support - wean Levophed for target MAP > 65 mmHg - continue accuchecks with glycemic control per SSI (While critically ill target blood glucose of 140-180 mg/dL; avoid hypoglycemia) - continue supplemental oxygen for target O2 sat's > 90% acutely - aspiration precautions - prn bronchodilators with pulmonary hygiene per RT - avoid nephrotoxins, renally dose all medications - continue to avoid benzodiazepine's, reduce the possibility of delirium - AB's per ID rec's - prn analgesia per pain score - Maintenance of sleep-wake cycle, avoid delirium - G.I. & VTE prophylaxis - PT/OT/ROM exercises - continue mobility protocols for pressure ulcer prophylaxis - Monitor hemodynamics closely - continue other care per attending / other consultants - discharge planning ongoing concurrently .... Re-evaluate in am & prn CONDITION: CRITICAL PROGNOSIS: GUARDED CODE STATUS: FULL CODE The high probability of a clinically significant, sudden or life-threatening deterioration of the [respiratory, cardiovascular, renal & neurologic] system(s) required my full and direct attention, intervention and personal management. The aggregate critical care time was [34] minutes without overlap. Time includes spent on; [x] Data Review and interpretation [x] Patient assessment and monitoring of vital signs [x] Documentation [x] Medication orders and management Subjective Date of service: 04/20/22 Principal diagnosis: AHRF; Shock; AMS; SVT; NSTEMI; ESRD; Protein calorie malnutrition Interval history: Patient is seen today for: Acute hypoxemic respiratory failure; Shock / Hypotension; AMS; SVT; NSTEMI; Schizophrenia; ESRD on Dialysis; Moderate protein caloric malnutrition Seen and examined at bedside; 24hour events reviewed; nursing and respiratory care staff consulted; no adverse overnight events reported to me; resting in bed; remains on Levophed drip; complains of a sore throat and cough; no N/V/F/C Objective Vital Signs - 12hr 04/19/22 04/19/22 04/19/22 23:16 23:22 23:30 Temperature Pulse Rate 124 H 73 131 H Pulse Rate [ Anterior] Pulse Rate [ From Monitor] Respiratory 18 17 16 Rate Respiratory Rate [Anterior] Blood Pressure 105/69 105/69 97/68 O2 Sat by Pulse Oximetry 04/19/22 04/19/22 04/20/22 23:45 23:50 00:00 Temperature 97.6 F Pulse Rate 75 74 121 H Pulse Rate [ Anterior] Pulse Rate [ 134 H From Monitor] Respiratory 20 14 Rate Respiratory Rate [Anterior] Blood Pressure 94/56 94/56 O2 Sat by Pulse 93 Oximetry 04/20/22 04/20/22 04/20/22 00:16 00:30 00:46 Temperature Pulse Rate 136 H 121 H 87 Pulse Rate [ Anterior] Pulse Rate [ From Monitor] Respiratory 19 15 17 Rate Respiratory Rate [Anterior] Blood Pressure 88/55 93/57 86/53 O2 Sat by Pulse Oximetry 04/20/22 04/20/22 04/20/22 01:00 01:15 01:30 Temperature Pulse Rate 119 H 120 H 117 H Pulse Rate [ Anterior] Pulse Rate [ From Monitor] Respiratory 19 17 18 Rate Respiratory Rate [Anterior] Blood Pressure 98/58 89/53 93/60 O2 Sat by Pulse 100 Oximetry 04/20/22 04/20/22 04/20/22 01:45 02:00 02:15 Temperature Pulse Rate 122 H 119 H 121 H Pulse Rate [ 116 H Anterior] Pulse Rate [ From Monitor] Respiratory 19 19 21 Rate Respiratory 21 Rate [Anterior] Blood Pressure 95/61 97/52 99/52 O2 Sat by Pulse 100 100 100 Oximetry 04/20/22 04/20/22 04/20/22 02:30 02:45 03:00 Temperature Pulse Rate 119 H 120 H 115 H Pulse Rate [ Anterior] Pulse Rate [ From Monitor] Respiratory 19 20 20 Rate Respiratory Rate [Anterior] Blood Pressure 99/52 90/63 95/55 O2 Sat by Pulse 100 100 100 Oximetry 04/20/22 04/20/22 04/20/22 03:15 03:30 03:45 Temperature Pulse Rate 75 81 125 H Pulse Rate [ Anterior] Pulse Rate [ From Monitor] Respiratory 16 19 14 Rate Respiratory Rate [Anterior] Blood Pressure 96/51 86/44 94/52 O2 Sat by Pulse 99 99 100 Oximetry 04/20/22 04/20/22 04/20/22 03:59 04:00 04:15 Temperature 97.7 F Pulse Rate 123 H 120 H Pulse Rate [ Anterior] Pulse Rate [ 134 H From Monitor] Respiratory 19 19 Rate Respiratory Rate [Anterior] Blood Pressure 97/62 99/56 O2 Sat by Pulse 100 100 100 Oximetry 04/20/22 04/20/22 04/20/22 04:30 04:45 05:00 Temperature Pulse Rate 115 H 116 H 128 H Pulse Rate [ Anterior] Pulse Rate [ From Monitor] Respiratory 16 22 21 Rate Respiratory Rate [Anterior] Blood Pressure 97/62 108/63 110/57 O2 Sat by Pulse 100 100 100 Oximetry 04/20/22 04/20/22 04/20/22 05:16 05:30 05:45 Temperature Pulse Rate 125 H 135 H 78 Pulse Rate [ Anterior] Pulse Rate [ From Monitor] Respiratory 20 20 20 Rate Respiratory Rate [Anterior] Blood Pressure 101/44 101/44 85/49 O2 Sat by Pulse 100 96 100 Oximetry 04/20/22 04/20/22 04/20/22 06:00 06:15 06:30 Temperature Pulse Rate 121 H 130 H 124 H Pulse Rate [ Anterior] Pulse Rate [ From Monitor] Respiratory 15 24 16 Rate Respiratory Rate [Anterior] Blood Pressure 85/49 89/53 89/55 O2 Sat by Pulse 100 92 99 Oximetry 04/20/22 04/20/22 04/20/22 06:45 07:00 07:16 Temperature Pulse Rate 118 H 124 H 117 H Pulse Rate [ Anterior] Pulse Rate [ From Monitor] Respiratory 20 17 18 Rate Respiratory Rate [Anterior] Blood Pressure 91/55 91/55 81/52 O2 Sat by Pulse 97 96 99 Oximetry 04/20/22 04/20/22 04/20/22 07:30 07:46 08:00 Temperature Pulse Rate 120 H 119 H 120 H Pulse Rate [ Anterior] Pulse Rate [ From Monitor] Respiratory 14 18 19 Rate Respiratory Rate [Anterior] Blood Pressure 83/53 86/52 85/46 O2 Sat by Pulse 99 100 100 Oximetry 04/20/22 04/20/22 04/20/22 08:16 08:21 08:22 Temperature Pulse Rate 119 H Pulse Rate [ 115 H Anterior] Pulse Rate [ From Monitor] Respiratory 18 Rate Respiratory 20 Rate [Anterior] Blood Pressure 91/56 O2 Sat by Pulse 100 99 Oximetry 04/20/22 04/20/22 04/20/22 08:30 08:45 09:00 Temperature Pulse Rate 120 H 123 H 121 H Pulse Rate [ Anterior] Pulse Rate [ From Monitor] Respiratory 21 20 21 Rate Respiratory Rate [Anterior] Blood Pressure 91/56 87/55 92/51 O2 Sat by Pulse 100 100 98 Oximetry 04/20/22 04/20/22 04/20/22 09:15 09:30 09:45 Temperature Pulse Rate 122 H 132 H 124 H Pulse Rate [ Anterior] Pulse Rate [ From Monitor] Respiratory 21 16 17 Rate Respiratory Rate [Anterior] Blood Pressure 89/54 90/51 85/52 O2 Sat by Pulse 97 96 96 Oximetry 04/20/22 10:00 Temperature Pulse Rate 123 H Pulse Rate [ Anterior] Pulse Rate [ From Monitor] Respiratory 22 Rate Respiratory Rate [Anterior] Blood Pressure 89/60 O2 Sat by Pulse 95 Oximetry Constitutional: no acute distress Eyes: non-icteric ENT: oropharynx moist Neck: supple, no lymphadenopathy, no JVD Effort: mildly labored Ascultation: Bilateral: clear Percussion: Bilateral: not dull Cardiovascular: regular rate and rhythm Gastrointestinal: normoactive bowel sounds, soft, non-tender, non-distended Integumentary: normal Extremities: no cyanosis, no edema, pulses normal, no ischemia or petechiae Neurologic: non-focal exam (grossly), pupils equal and round, CN II-XII normal, motor strength normal and Psychiatric: mood appropriate, affect normal CBC and BMP: 04/20/22 05:30 04/20/22 05:30 ABG, PT/INR, D-dimer: PT/INR, D-dimer PT 17.9 Sec. (12.2-14.9) H 04/19/22 19:40 INR 1.28 (0.87-1.13) H 04/19/22 19:40 Abnormal lab findings: Abnormal Labs 04/19/22 04/19/22 04/19/22 04:53 04:53 04:53 WBC RBC 3.06 L Hgb 8.6 L Hct 28.0 L RDW 16.3 H [place] % (Auto) 11.3 H Lymph # (Auto) PT INR APTT Potassium 5.1 H Carbon Dioxide 21 L BUN 94 H Creatinine 6.3 H Glucose Troponin T 0.415 H* Albumin 2.7 L Free T4 0.28 L 04/19/22 04/19/22 04/20/22 19:40 19:40 05:30 WBC 4.1 L RBC 2.97 L Hgb 8.5 L 8.2 L Hct 27.8 L 27.1 L RDW 17.0 H [place] % (Auto) 15.2 H Lymph # (Auto) 1.1 L PT 17.9 H INR 1.28 H APTT 199.1 H* Potassium Carbon Dioxide BUN Creatinine Glucose Troponin T Albumin Free T4 04/20/22 05:30 WBC RBC Hgb Hct RDW [place] % (Auto) Lymph # (Auto) PT INR APTT Potassium Carbon Dioxide 21 L BUN 95 H Creatinine 6.6 H Glucose 139 H Troponin T Albumin 2.4 L Free T4 Allied health notes reviewed: nursing
--- NOTE | 2022-04-20 11:27 | Progress Note ---
<COLLETTE HANNA - Last Filed: 04/20/22 18:18> Assessment and Plan Assessment and plan: This is a 66-year-old female with known past medical history of HTN, GERD, Seizure disorder, vascular dementia, ESRD on HD(TTS), OA, bipolar disorder, schizophrenia, anxiety disorder, and limited mobility admitted for Acute hypxic respiratory, hypotension, and SVT s/p X2 doses adenosine and cardioversion. Hospital Course to Date: 04/20: Patient went into Afib with RVR overnight, now on amiodarone gtt per c cuate. Patient remains in AFib with RVR this am, HR in the 120-140s. BP marginal on Levophed gtt, currently not a candidate for BB. Midodrine increased to 15mg TID. 2D Echo pending. On heparin gtt per protocol. No HD today per nephro due to hypotension and tachycardia. Assessement and Plan #Atrial Fibrillation with RVR #Supraventricular Tachycardia s/p Cardioversion #Acute on Chronic Hypotension #NSTEMI Type 2 - Presented with AMS, Tachycardia, and hypotension requiring pressors - was found in SVT in the ED s/p unsuccessful X2 doses of adenosine then ca rdioversion. - Patient initially converted to SR post cardioversion, then went into afib RVR in the ICU - Elevated troponin most likely related to ESRD - Cardiology consulted, appreciate recommendations - patient is now on amiodarone gtt per cardio - Remains in Afib RVR, HR in the 120-140s with marginal BP on Levophed gtt - Per patient's son, patient is hypotensive at baseline - Home Midodrine increased to 15mg TID - 2D Echo pending - on Lipitor and Plavix - Not a candidate for MARGOTH, ARB, and BB due to hypotension - Continue blood pressure monitor per protocol - Titrate pressors for MAP goal of 65 - On heparin gtt per protocol - CCM also following #Acute Hypoxic Respiratory Failure - Presented with low SPO2, in the 70s on RA - probably related to above - Patient currently stable on 2L NC, no respiratory distress noted - Rate control per cardiology - Continue O2 supplementation and wean as tolerated - Continue SPO2 monitoring for SPO2 goal above 92% #Acute Metabolic Encephalopathy #H/o Vascular Dementia #Severe Anxiety #Bipolar Disorder & Schizophrenia - Presented with AMS, probably due to above - Mentation approved- Drowsy but AAO, following commands - Resume home meds - PRN Analgesia for pain control - Maintenance of sleep-wake cycle - Mental Health/Psych on consult #End-Stage Renal Disease(ESRD) on HD - Nephrology on consult, appreciated recommendation - No HD today pe Nephro due to hypotension and tachycardia - Strict intake and output - Avoid nephrotoxic medications; Renally dose medications - Monitor and replace electrolytes as needed #Anemia of Chronic Disease - most likely secondary to ESRD - H&H stable, no s/s of any active bleeding - Epogen with HD per Nephro - Continue to trend H&H - Transfuse for hgb less than 7 #H/o Seizure Disorder - Resume home meds #Moderate Protein Caloric Malnutrition - Patient noted with poor dentition, diet switched to pureed - Encourage PO intake and nutrition supplement - Nutrition consulted #GI/DVT Prophylaxis - PPI- Protonix - Heparin gtt - SCDs to bilateral lower extremities while in bed The high probability of a clinically significant, sudden or life threatening deterioration of the [multiple] system(s) required my full and direct attention, intervention and personal management. The aggregate critical care time was [60] minutes. This time is in addition to time spent performing reported procedures but includes the following: [x] Data Review and interpretation [x] Patient assessment and monitoring of vital signs [x] Documentation [x] Medication orders and management Disposition Plan: ICU Total Time Spent with Patient (Minutes): 60 History Interval history: Patient seen and examined at the bedside. Drowsy but AAO, following commands, on 2L NC. Denied any pain nor any discomfort at this time. Patient is in Afib with RVR on the monitor, HR in the 120-140s, on amiodarone gtt per Cardio. BP is marginal on Levophed gtt. Also on heparin gtt per protocol. GUERRERO overnight Hospitalist Physical - Constitutional Vitals: Temp Pulse Resp BP Pulse Ox 97.7 F 134 H 25 H 89/53 96 04/20/22 03:59 04/20/22 11:15 04/20/22 11:15 04/20/22 11:15 04/20/22 11:15 General appearance: Present: no acute distress, well-nourished, obese, other - EENT Eyes: Present: PERRL ENT: hearing intact, poor dentition - Neck Neck: Present: normal ROM - Respiratory Respiratory effort: normal Respiratory: bilateral: diminished - Cardiovascular Rhythm: irregularly irregular Heart Sounds: Present: S1 & S2 - Extremities Extremities: no ischemia, pulses intact, pulses symmetrical Extremity abnormal: edema - Peripheral Assessment Generalized Edema Type: Non-pitting Edema Degree: 2+ Capillary Refill: < 3 seconds Skin Temperature: Warm Peripheral Pulses: within normal limits - Abdominal General gastrointestinal: soft, non-distended, normal bowel sounds - Integumentary Integumentary: Present: warm, dry - Psychiatric Psychiatric: appropriate mood/affect, cooperative, other (Drowsy) - Neurologic Neurologic: moves all extremities, other (Drowsy) - Allied Health Allied health notes reviewed: nursing, case management HEART Score - HEART Score Troponin: Troponin T 0.415 ng/mL (0.00-0.029) H* 04/19/22 04:53 Results - Labs CBC & Chem 7: 04/20/22 05:30 04/20/22 05:30 Labs: Laboratory Last Values WBC 4.1 K/mm3 (4.5-11.0) L 04/20/22 05:30 RBC 2.97 M/mm3 (3.65-5.03) L 04/20/22 05:30 Hgb 8.2 gm/dl (10.1-14.3) L 04/20/22 05:30 Hct 27.1 % (30.3-42.9) L 04/20/22 05:30 MCV 91 fl (79-97) 04/20/22 05:30 MCH 28 pg (28-32) 04/20/22 05:30 MCHC 30 % (30-34) 04/20/22 05:30 RDW 17.0 % (13.2-15.2) H 04/20/22 05:30 Plt Count 314 K/mm3 (140-440) 04/20/22 05:30 Lymph % (Auto) 26.7 % (13.4-35.0) 04/20/22 05:30 [place] % (Auto) 15.2 % (0.0-7.3) H 04/20/22 05:30 Eos % (Auto) 3.8 % (0.0-4.3) 04/20/22 05:30 Baso % (Auto) 1.2 % (0.0-1.8) 04/20/22 05:30 Lymph # (Auto) 1.1 K/mm3 (1.2-5.4) L 04/20/22 05:30 [place] # (Auto) 0.6 K/mm3 (0.0-0.8) 04/20/22 05:30 Eos # (Auto) 0.2 K/mm3 (0.0-0.4) 04/20/22 05:30 Baso # (Auto) 0.0 K/mm3 (0.0-0.1) 04/20/22 05:30 Seg Neutrophils % 53.1 % (40.0-70.0) 04/20/22 05:30 Seg Neutrophils # 2.2 K/mm3 (1.8-7.7) 04/20/22 05:30 PT 17.9 Sec. (12.2-14.9) H 04/19/22 19:40 INR 1.28 (0.87-1.13) H 04/19/22 19:40 APTT 199.1 Sec. (24.2-36.6) H* 04/19/22 19:40 Heparin Anti-Xa Level 0.33 U.I./ml (0.3-0.7) 04/20/22 00:09 Sodium 140 mmol/L (137-145) 04/20/22 05:30 Potassium 4.7 mmol/L (3.6-5.0) 04/20/22 05:30 Chloride 100.2 mmol/L (98-107) 04/20/22 05:30 Carbon Dioxide 21 mmol/L (22-30) L 04/20/22 05:30 Anion Gap 24 mmol/L 04/20/22 05:30 BUN 95 mg/dL (7-17) H 04/20/22 05:30 Creatinine 6.6 mg/dL (0.6-1.2) H 04/20/22 05:30 Estimated GFR 8 ml/min 04/20/22 05:30 BUN/Creatinine Ratio 14 % 04/20/22 05:30 Glucose 139 mg/dL (65-100) H 04/20/22 05:30 Lactic Acid 1.60 mmol/L (0.7-2.0) 04/19/22 07:14 Calcium 9.3 mg/dL (8.4-10.2) 04/20/22 05:30 Total Bilirubin 0.30 mg/dL (0.1-1.2) 04/20/22 05:30 AST 11 units/L (5-40) 04/20/22 05:30 ALT 7 units/L (7-56) 04/20/22 05:30 Alkaline Phosphatase 101 units/L (35-129) 04/20/22 05:30 Ammonia 25.0 umol/L (25-60) 04/19/22 04:53 Troponin T 0.415 ng/mL (0.00-0.029) H* 04/19/22 04:53 Total Protein 6.4 g/dL (6.3-8.2) 04/20/22 05:30 Albumin 2.4 g/dL (3.9-5) L 04/20/22 05:30 Albumin/Globulin Ratio 0.6 % 04/20/22 05:30 TSH 1.700 mlU/mL (0.270-4.200) 04/19/22 04:53 Free T4 0.28 ng/dL (0.76-1.46) L 04/19/22 04:53 Hepatitis A IgM Ab Non-reactive (NonReactive) 04/19/22 04:53 Hep Bs Antigen Non-reactive (Negative) 04/19/22 04:53 Hep B Core IgM Ab Non-reactive (NonReactive) 04/19/22 04:53 Hepatitis C Antibody Non-reactive (NonReactive) 04/19/22 04:53 Microbiology: Microbiology 04/19/22 04:53 Peripheral/Venous Blood Culture - Preliminary NO GROWTH AFTER 24 HOURS 04/19/22 05:43 Peripheral/Venous Blood Culture - Preliminary NO GROWTH AFTER 24 HOURS Cleary/IV: Voiding Method Incontinent Active Medications - Current Medications Current Medications: Generic Name Dose Route Start Last Admin Trade Name Freq PRN Reason Stop Dose Admin Acetaminophen 650 mg 04/19/22 09:55 Acetaminophen 325 Mg Tab PO Q6H PRN Pain MILD(1-3)/Fever >100.5/DRAKE Albuterol 2.5 mg 04/19/22 11:16 Albuterol 2.5 Mg/3 Ml Nebu IH Q3HRT PRN Shortness Of Breath Albuterol/Ipratropium 1 ampul 04/19/22 14:00 04/20/22 08:22 Ipratropium/Albuterol Sulfate 3 Ml Ampul.Neb IH 1 ampul Q6HRT CONNOR Administration Clopidogrel Bisulfate 75 mg 04/19/22 12:00 04/19/22 15:39 Clopidogrel 75 Mg Tab PO 75 mg QDAY CONNOR Administration Divalproex Sodium 750 mg 04/19/22 12:00 04/19/22 21:[address] 250 Mg Tab PO 750 mg BID CONNOR Administration NORepinephrine/NS 8 MG-250 ML 8 mg in 250 mls @ 3.75 mls/hr 04/19/22 09:00 04/20/22 08:00 Norepinephrine/Ns 8 Mg-250 Ml (Double Conc) IV 8 mcg/min TITRATE CONNOR 15 mls/hr Titration Protocol 2 MCG/MIN Heparin Sodium/Sodium Chloride 25,000 unit in 500 mls @ 15 mls/hr 04/19/22 18:00 04/20/22 01:32 Heparin/ 0.45% Nacl-25,000 Unit/500 Ml IV 750 units/hr TITR CONNOR 15 mls/hr Titration Protocol 750 UNITS/HR Amiodarone HCl 900 mg/ 500 mls @ 33.333 mls/hr 04/19/22 18:00 04/20/22 01:28 Dextrose IV 0.5 mg/min DIRECT CONNOR 16.667 mls/hr Infusion Protocol 1 MG/MIN Amiodarone HCl 75 mg/ Dextrose 98.5 mls @ 600 mls/hr 04/20/22 11:01 IV 04/20/22 11:10 ONCE ONE Lorazepam 1 mg 04/19/22 12:00 04/19/22 15:39 Lorazepam 1 Mg Tab PO 1 mg DAILY CONNOR Administration Metoclopramide HCl 5 mg 04/19/22 09:55 Metoclopramide 10 Mg/2 Ml Inj IV Q6H PRN Nausea And Vomiting Midodrine 10 mg 04/19/22 14:00 04/19/22 21:04 Midodrine 10 Mg Tab PO 10 mg TID CONNOR Administration Miscellaneous Medication 5 mg 04/19/22 10:00 Memantine Xr PO DAILY [facility] Morphine Sulfate 2 mg 04/19/22 09:55 04/19/22 14:30 Morphine 2 Mg/1 Ml Inj IV 2 mg Q4H PRN Administration Pain, Moderate (4-6) Naloxone HCl 0.1 mg 04/19/22 09:55 Naloxone 0.4 Mg/1 Ml Inj IV Q2MIN PRN Res Rate </= 8 or 02 SAT < 92% Pantoprazole Sodium 40 mg 04/19/22 12:00 04/19/22 15:39 Pantoprazole 40 Mg Tab PO 40 mg QDAC CONNOR Administration Quetiapine Fumarate 400 mg 04/19/22 12:00 04/19/22 21:51 Quetiapine 200 Mg Tab PO 400 mg BID CONNOR Administration Risperidone 0.5 mg 04/19/22 12:00 04/19/22 21:50 Risperidone 1 Mg Tab PO 0.5 mg BID CONNOR Administration Senna 8.6 mg 04/19/22 12:00 04/20/22 01:26 Sennosides 8.6 Mg Tab PO Not Given BID CONNOR Sevelamer Carbonate 800 mg 04/19/22 12:00 04/19/22 17:57 Sevelamer Carbonate 800 Mg Tab PO 800 mg TIDWM CONNOR Administration Sodium Chloride 10 ml 04/19/22 12:00 04/20/22 01:27 Sodium Chloride 0.9% 10 Ml Flush Syringe IV 10 ml BID CONNOR Administration Sodium Chloride 10 ml 04/19/22 11:19 Sodium Chloride 0.9% 10 Ml Flush Syringe IV PRN PRN LINE FLUSH Nutrition/Malnutrition Assess - Dietary Evaluation Nutrition/Malnutrition Findings: Nutrition Notes Start: 04/19/22 17:39 Freq: Status: Active Protocol: Document 04/19/22 17:39 MIRIAN (Rec: 04/19/22 17:59 MIRIAN [id number]) Nutrition Notes Need for Assessment generated from: MD Order Initial or Follow up Assessment Current Diagnosis CKD (stage V CKD),Hypertension ,Respiratory Failure, Malnutrition Other Pertinent Diagnosis Metabolic Encephalopathy, ESRD +HD, COVID-19, Anemia, NSTEMI II, ... Current Diet Renal Diet (since L 04/19). Labs/Tests 04/19: K 5.1, CO2 21, BUN 94, Crea 6.3. Pertinent Medications 04/19: Nutritionally unremarkable. Height 5 ft 2 in Weight 54.431 kg [place] Body Weight (kg) 50.00 BMI 21.9 Weight change and time frame None provided at admission. Weight Status Appropriate Subjective/Other Information RD consult for malnutrition assessment. No reports available on Pt's PO intake of meals at the time , will assess at F/U. Pt is on Nasal Cannula, O2 saturation @ 100%, according to Physical Assessment History notes. Pt has missing teeth, according to Physical Assessment History notes. Pt has limited mobility, according to History & Physical notes. Procedure on 04/19: R-FV triple-lumen HD Catheter placemnt, well tolerated, according to Procedure notes. Pt presents a healing sacral wound, intact and no further signs of concern for skin risk at the time, according to Physical Assessment History notes. Pt shows no signs of concern for malnutrition at the time with the information available on chert, will reassess at F/ U. Percent of energy/protein needs met: Prescribed Renal Diet provides for energy/protein needs (2, 072 Kcal/77 g) during LOS. Burn Absent Trauma Absent GI Symptoms None Food Allergy Yes Skin Integrity/Comment Healing Sacral wound, intact. #1 Nutrition Diagnosis No nutrition diagnosis at this time Is patient on ventilator? No Is Patient Ambulatory and/or Out of Bed No REE-([facility]-confined to bed) 1244.856 Calculation Used for Recommendations [facility] Additional Notes Protein: >1.2 g/Kg ABW; >65 g/ day. Fluids: 1 ml/Kcal, or as per MD. Nutrition Intervention Change Diet Order: Continue Renal Diet as tolerated. Follow-Up By: 04/26/22 Additional Comments Continue monitoring food tolerance, %PO intake of meals , and BM. <MELINDA BOWEN - Last Filed: 04/21/22 07:50> Assessment and Plan Assessment and plan: I saw and evaluated the patient. I agree with the findings and the plan of care as documented in the Nurse Practitioner's~note, with the following corrections and additions. Hospitalist Physical - Constitutional Vitals: Temp Pulse Resp BP Pulse Ox 97.6 F 76 16 83/53 100 04/21/22 03:27 04/21/22 07:33 04/21/22 07:33 04/21/22 06:30 04/21/22 07:37 HEART Score - HEART Score Troponin: Troponin T 0.415 ng/mL (0.00-0.029) H* 04/19/22 04:53 Results - Labs CBC & Chem 7: 04/21/22 04:00 04/21/22 04:00 Labs: Laboratory Last Values WBC 5.1 K/mm3 (4.5-11.0) 04/21/22 04:00 RBC 2.74 M/mm3 (3.65-5.03) L 04/21/22 04:00 Hgb 7.7 gm/dl (10.1-14.3) L 04/21/22 04:00 Hct 24.7 % (30.3-42.9) L 04/21/22 04:00 MCV 90 fl (79-97) 04/21/22 04:00 MCH 28 pg (28-32) 04/21/22 04:00 MCHC 31 % (30-34) 04/21/22 04:00 RDW 16.6 % (13.2-15.2) H 04/21/22 04:00 Plt Count 334 K/mm3 (140-440) 04/21/22 04:00 Lymph % (Auto) 26.7 % (13.4-35.0) 04/20/22 05:30 [place] % (Auto) 15.2 % (0.0-7.3) H 04/20/22 05:30 Eos % (Auto) 3.8 % (0.0-4.3) 04/20/22 05:30 Baso % (Auto) 1.2 % (0.0-1.8) 04/20/22 05:30 Lymph # (Auto) 1.1 K/mm3 (1.2-5.4) L 04/20/22 05:30 [place] # (Auto) 0.6 K/mm3 (0.0-0.8) 04/20/22 05:30 Eos # (Auto) 0.2 K/mm3 (0.0-0.4) 04/20/22 05:30 Baso # (Auto) 0.0 K/mm3 (0.0-0.1) 04/20/22 05:30 Seg Neutrophils % 53.1 % (40.0-70.0) 04/20/22 05:30 Seg Neutrophils # 2.2 K/mm3 (1.8-7.7) 04/20/22 05:30 PT 17.9 Sec. (12.2-14.9) H 04/19/22 19:40 INR 1.28 (0.87-1.13) H 04/19/22 19:40 APTT 199.1 Sec. (24.2-36.6) H* 04/19/22 19:40 Heparin Anti-Xa Level 0.17 U.I./ml (0.3-0.7) L 04/21/22 00:29 Sodium 133 mmol/L (137-145) L 04/21/22 04:00 Potassium 4.7 mmol/L (3.6-5.0) 04/21/22 04:00 Chloride 98.5 mmol/L (98-107) 04/21/22 04:00 Carbon Dioxide 20 mmol/L (22-30) L 04/21/22 04:00 Anion Gap 19 mmol/L 04/21/22 04:00 BUN 89 mg/dL (7-17) H 04/21/22 04:00 Creatinine 6.6 mg/dL (0.6-1.2) H 04/21/22 04:00 Estimated GFR 8 ml/min 04/21/22 04:00 BUN/Creatinine Ratio 13 % 04/21/22 04:00 Glucose 131 mg/dL (65-100) H 04/21/22 04:00 Lactic Acid 1.60 mmol/L (0.7-2.0) 04/19/22 07:14 Calcium 9.1 mg/dL (8.4-10.2) 04/21/22 04:00 Phosphorus 6.40 mg/dL (2.5-4.5) H 04/21/22 04:00 Magnesium 2.50 mg/dL (1.7-2.3) H 04/21/22 04:00 Total Bilirubin 0.30 mg/dL (0.1-1.2) 04/20/22 05:30 AST 11 units/L (5-40) 04/20/22 05:30 ALT 7 units/L (7-56) 04/20/22 05:30 Alkaline Phosphatase 101 units/L (35-129) 04/20/22 05:30 Ammonia 25.0 umol/L (25-60) 04/19/22 04:53 Troponin T 0.415 ng/mL (0.00-0.029) H* 04/19/22 04:53 Total Protein 6.4 g/dL (6.3-8.2) 04/20/22 05:30 Albumin 2.4 g/dL (3.9-5) L 04/20/22 05:30 Albumin/Globulin Ratio 0.6 % 04/20/22 05:30 TSH 1.700 mlU/mL (0.270-4.200) 04/19/22 04:53 Free T4 0.28 ng/dL (0.76-1.46) L 04/19/22 04:53 Hepatitis A IgM Ab Non-reactive (NonReactive) 04/19/22 04:53 Hep Bs Antigen Non-reactive (Negative) 04/19/22 04:53 Hep B Core IgM Ab Non-reactive (NonReactive) 04/19/22 04:53 Hepatitis C Antibody Non-reactive (NonReactive) 04/19/22 04:53 Microbiology: Microbiology 04/19/22 05:43 Peripheral/Venous Blood Culture - Preliminary NO GROWTH AFTER 48 HOURS 04/19/22 04:53 Peripheral/Venous Blood Culture - Preliminary NO GROWTH AFTER 48 HOURS Cleary/IV: Voiding Method Incontinent Active Medications - Current Medications Current Medications: Generic Name Dose Route Start Last Admin Trade Name Freq PRN Reason Stop Dose Admin Acetaminophen 650 mg 04/19/22 09:55 Acetaminophen 325 Mg Tab PO Q6H PRN Pain MILD(1-3)/Fever >100.5/DRAKE Albuterol 2.5 mg 04/21/22 07:39 Albuterol 2.5 Mg/3 Ml Nebu IH Q3HRT PRN Shortness Of Breath Albuterol/Ipratropium 1 ampul 04/21/22 14:00 Ipratropium/Albuterol Sulfate 3 Ml Ampul.Neb IH TIDRT CONNOR Clopidogrel Bisulfate 75 mg 04/19/22 12:00 04/20/22 09:50 Clopidogrel 75 Mg Tab PO 75 mg QDAY CONNOR Administration Divalproex Sodium 750 mg 04/20/22 22:00 04/21/22 00:[address] 250 Mg Tab PO Not Given BID CONNOR NORepinephrine/NS 8 MG-250 ML 8 mg in 250 mls @ 3.75 mls/hr 04/19/22 09:00 04/21/22 06:05 Norepinephrine/Ns 8 Mg-250 Ml (Double Conc) IV 10 mcg/min TITRATE CONNOR 18.75 mls/hr Titration Protocol 2 MCG/MIN Heparin Sodium/Sodium Chloride 25,000 unit in 500 mls @ 15 mls/hr 04/19/22 18:00 04/21/22 03:11 Heparin/ 0.45% Nacl-25,000 Unit/500 Ml IV 750 units/hr TITR CONNOR 15 mls/hr Administration Protocol 750 UNITS/HR Amiodarone HCl 900 mg/ 500 mls @ 33.333 mls/hr 04/19/22 18:00 04/20/22 20:19 Dextrose IV 0.5 mg/min DIRECT CONNOR 16.667 mls/hr Infusion Protocol 1 MG/MIN Lorazepam 1 mg 04/19/22 12:00 04/20/22 09:50 Lorazepam 1 Mg Tab PO 1 mg DAILY CONNOR Administration Metoclopramide HCl 5 mg 04/19/22 09:55 Metoclopramide 10 Mg/2 Ml Inj IV Q6H PRN Nausea And Vomiting Midodrine 15 mg 04/20/22 13:00 04/20/22 18:07 Midodrine 5 Mg Tab PO 15 mg 0800,1300,1800 CONNOR Administration Miscellaneous Medication 5 mg 04/19/22 10:00 Memantine Xr PO DAILY [facility] Morphine Sulfate 2 mg 04/19/22 09:55 04/19/22 14:30 Morphine 2 Mg/1 Ml Inj IV 2 mg Q4H PRN Administration Pain, Moderate (4-6) Naloxone HCl 0.1 mg 04/19/22 09:55 Naloxone 0.4 Mg/1 Ml Inj IV Q2MIN PRN Res Rate </= 8 or 02 SAT < 92% Pantoprazole Sodium 40 mg 04/19/22 12:00 04/20/22 12:04 Pantoprazole 40 Mg Tab PO 40 mg QDAC CONNOR Administration Quetiapine Fumarate 400 mg 04/19/22 12:00 04/21/22 00:54 Quetiapine 200 Mg Tab PO Not Given BID CONNOR Risperidone 0.5 mg 04/19/22 12:00 04/21/22 00:53 Risperidone 1 Mg Tab PO Not Given BID CONNOR Senna 8.6 mg 04/19/22 12:00 04/21/22 00:53 Sennosides 8.6 Mg Tab PO Not Given BID CONNOR Sevelamer Carbonate 800 mg 04/19/22 12:00 04/20/22 18:07 Sevelamer Carbonate 800 Mg Tab PO 800 mg TIDWM CONNOR Administration Sodium Chloride 10 ml 04/19/22 12:00 04/21/22 00:54 Sodium Chloride 0.9% 10 Ml Flush Syringe IV 10 ml BID CONNOR Administration Sodium Chloride 10 ml 04/19/22 11:19 Sodium Chloride 0.9% 10 Ml Flush Syringe IV PRN PRN LINE FLUSH Nutrition/Malnutrition Assess - Dietary Evaluation Nutrition/Malnutrition Findings: Nutrition Notes Start: 04/19/22 17:39 Freq: Status: Active Protocol: Document 04/19/22 17:39 MIRIAN (Rec: 04/19/22 17:59 MIRIAN [id number]) Nutrition Notes Need for Assessment generated from: MD Order Initial or Follow up Assessment Current Diagnosis CKD (stage V CKD),Hypertension ,Respiratory Failure, Malnutrition Other Pertinent Diagnosis Metabolic Encephalopathy, ESRD +HD, COVID-19, Anemia, NSTEMI II, ... Current Diet Renal Diet (since L 04/19). Labs/Tests 04/19: K 5.1, CO2 21, BUN 94, Crea 6.3. Pertinent Medications 04/19: Nutritionally unremarkable. Height 5 ft 2 in Weight 54.431 kg [place] Body Weight (kg) 50.00 BMI 21.9 Weight change and time frame None provided at admission. Weight Status Appropriate Subjective/Other Information RD consult for malnutrition assessment. No reports available on Pt's PO intake of meals at the time , will assess at F/U. Pt is on Nasal Cannula, O2 saturation @ 100%, according to Physical Assessment History notes. Pt has missing teeth, according to Physical Assessment History notes. Pt has limited mobility, according to History & Physical notes. Procedure on 04/19: R-FV triple-lumen HD Catheter placemnt, well tolerated, according to Procedure notes. Pt presents a healing sacral wound, intact and no further signs of concern for skin risk at the time, according to Physical Assessment History notes. Pt shows no signs of concern for malnutrition at the time with the information available on chert, will reassess at F/ U. Percent of energy/protein needs met: Prescribed Renal Diet provides for energy/protein needs (2, 072 Kcal/77 g) during LOS. Burn Absent Trauma Absent GI Symptoms None Food Allergy Yes Skin Integrity/Comment Healing Sacral wound, intact. #1 Nutrition Diagnosis No nutrition diagnosis at this time Is patient on ventilator? No Is Patient Ambulatory and/or Out of Bed No REE-([place]-confined to bed) 1244.856 Calculation Used for Recommendations [place] Additional Notes Protein: >1.2 g/Kg ABW; >65 g/ day. Fluids: 1 ml/Kcal, or as per MD. Nutrition Intervention Change Diet Order: Continue Renal Diet as tolerated. Follow-Up By: 04/26/22 Additional Comments Continue monitoring food tolerance, %PO intake of meals , and BM.
[2022-04-20] MEDS ORDERED: MIDODRINE 10 MG TAB PO SCH (11:58)
[2022-04-20] MEDS: PANTOPRAZOLE 40 MG TAB PO SCH (12:04)
--- NOTE | 2022-04-20 12:07 | Progress Note ---
Assessment and Plan Impression: * End stage renal disease * AMS * SVT s/p cardioversion * SIRS * Hypotension * Anemia secondary to ESRD * Secondary hyperparathyroidism Plan: * Will continue TTS schedule if hemodynamically stable, she is hypotensive and and tachycardic today, will hold HD today * Dose medications for renal function * cards notes reviewed * add midodrine if ok with cards * keep MAP>65, vasopressors prn * Avoid potential nephrotoxins * Epogen TIW prn * Renal/HD diet Subjective Date of service: 04/20/22 Principal diagnosis: AHRF; Shock; AMS; SVT; NSTEMI; ESRD; Protein calorie malnutrition Interval history: resting in bed events noted labs and chart reviewed Objective - Exam Narrative Exam: General: No acute distress Head: Atraumatic Eyes: normal appearance ENT: Dry mucous Neck: Normal appearance Chest: Clear to auscultation bilaterally CV: Regular rate and rhythm, right arm dialysis access Abdomen: Soft, normal bowel sounds, nontender, nondistended, no rebound or guarding Extremity: Normal inspection, full range of motion Neuro: Lethargic, answer some questions. Oriented to self and place but not to year. Mild tremor noted to left upper and lower extremity with movement. Limit ed left hand press set up with limited ability to flex fingers of left hand. 5/5 right hand press set up. Equal foot dorsiflexion. - Vital Signs Vital signs: Vital Signs - 12hr 04/20/22 04/20/22 04/20/22 00:16 00:30 00:46 Temperature Pulse Rate 136 H 121 H 87 Pulse Rate [ Anterior] Pulse Rate [ From Monitor] Respiratory 19 15 17 Rate Respiratory Rate [Anterior] Blood Pressure 88/55 93/57 86/53 O2 Sat by Pulse Oximetry 04/20/22 04/20/22 04/20/22 01:00 01:15 01:30 Temperature Pulse Rate 119 H 120 H 117 H Pulse Rate [ Anterior] Pulse Rate [ From Monitor] Respiratory 19 17 18 Rate Respiratory Rate [Anterior] Blood Pressure 98/58 89/53 93/60 O2 Sat by Pulse 100 Oximetry 04/20/22 04/20/22 04/20/22 01:45 02:00 02:15 Temperature Pulse Rate 122 H 119 H 121 H Pulse Rate [ 116 H Anterior] Pulse Rate [ From Monitor] Respiratory 19 19 21 Rate Respiratory 21 Rate [Anterior] Blood Pressure 95/61 97/52 99/52 O2 Sat by Pulse 100 100 100 Oximetry 04/20/22 04/20/22 04/20/22 02:30 02:45 03:00 Temperature Pulse Rate 119 H 120 H 115 H Pulse Rate [ Anterior] Pulse Rate [ From Monitor] Respiratory 19 20 20 Rate Respiratory Rate [Anterior] Blood Pressure 99/52 90/63 95/55 O2 Sat by Pulse 100 100 100 Oximetry 04/20/22 04/20/22 04/20/22 03:15 03:30 03:45 Temperature Pulse Rate 75 81 125 H Pulse Rate [ Anterior] Pulse Rate [ From Monitor] Respiratory 16 19 14 Rate Respiratory Rate [Anterior] Blood Pressure 96/51 86/44 94/52 O2 Sat by Pulse 99 99 100 Oximetry 04/20/22 04/20/22 04/20/22 03:59 04:00 04:15 Temperature 97.7 F Pulse Rate 123 H 120 H Pulse Rate [ Anterior] Pulse Rate [ 134 H From Monitor] Respiratory 19 19 Rate Respiratory Rate [Anterior] Blood Pressure 97/62 99/56 O2 Sat by Pulse 100 100 100 Oximetry 04/20/22 04/20/22 04/20/22 04:30 04:45 05:00 Temperature Pulse Rate 115 H 116 H 128 H Pulse Rate [ Anterior] Pulse Rate [ From Monitor] Respiratory 16 22 21 Rate Respiratory Rate [Anterior] Blood Pressure 97/62 108/63 110/57 O2 Sat by Pulse 100 100 100 Oximetry 04/20/22 04/20/22 04/20/22 05:16 05:30 05:45 Temperature Pulse Rate 125 H 135 H 78 Pulse Rate [ Anterior] Pulse Rate [ From Monitor] Respiratory 20 20 20 Rate Respiratory Rate [Anterior] Blood Pressure 101/44 101/44 85/49 O2 Sat by Pulse 100 96 100 Oximetry 04/20/22 04/20/22 04/20/22 06:00 06:15 06:30 Temperature Pulse Rate 121 H 130 H 124 H Pulse Rate [ Anterior] Pulse Rate [ From Monitor] Respiratory 15 24 16 Rate Respiratory Rate [Anterior] Blood Pressure 85/49 89/53 89/55 O2 Sat by Pulse 100 92 99 Oximetry 04/20/22 04/20/22 04/20/22 06:45 07:00 07:16 Temperature Pulse Rate 118 H 124 H 117 H Pulse Rate [ Anterior] Pulse Rate [ From Monitor] Respiratory 20 17 18 Rate Respiratory Rate [Anterior] Blood Pressure 91/55 91/55 81/52 O2 Sat by Pulse 97 96 99 Oximetry 04/20/22 04/20/22 04/20/22 07:30 07:46 08:00 Temperature Pulse Rate 120 H 119 H 120 H Pulse Rate [ Anterior] Pulse Rate [ 120 H From Monitor] Respiratory 14 18 19 Rate Respiratory Rate [Anterior] Blood Pressure 83/53 86/52 85/46 O2 Sat by Pulse 99 100 100 Oximetry 04/20/22 04/20/22 04/20/22 08:16 08:21 08:22 Temperature Pulse Rate 119 H Pulse Rate [ 115 H Anterior] Pulse Rate [ From Monitor] Respiratory 18 Rate Respiratory 20 Rate [Anterior] Blood Pressure 91/56 O2 Sat by Pulse 100 99 Oximetry 04/20/22 04/20/22 04/20/22 08:30 08:45 09:00 Temperature Pulse Rate 120 H 123 H 121 H Pulse Rate [ Anterior] Pulse Rate [ From Monitor] Respiratory 21 20 21 Rate Respiratory Rate [Anterior] Blood Pressure 91/56 87/55 92/51 O2 Sat by Pulse 100 100 98 Oximetry 04/20/22 04/20/22 04/20/22 09:15 09:30 09:45 Temperature Pulse Rate 122 H 132 H 124 H Pulse Rate [ Anterior] Pulse Rate [ From Monitor] Respiratory 21 16 17 Rate Respiratory Rate [Anterior] Blood Pressure 89/54 90/51 85/52 O2 Sat by Pulse 97 96 96 Oximetry 04/20/22 04/20/22 04/20/22 10:00 10:16 10:30 Temperature Pulse Rate 123 H 123 H 123 H Pulse Rate [ Anterior] Pulse Rate [ From Monitor] Respiratory 22 18 21 Rate Respiratory Rate [Anterior] Blood Pressure 89/60 86/50 81/55 O2 Sat by Pulse 95 96 98 Oximetry 04/20/22 04/20/22 04/20/22 10:46 11:00 11:15 Temperature Pulse Rate 136 H 120 H 134 H Pulse Rate [ Anterior] Pulse Rate [ From Monitor] Respiratory 25 H 23 25 H Rate Respiratory Rate [Anterior] Blood Pressure 87/49 90/46 89/53 O2 Sat by Pulse 99 97 96 Oximetry - Lab 04/20/22 05:30 04/20/22 05:30 Most recent lab results Calcium 9.3 mg/dL (8.4-10.2) 08/04/22 05:30 Medications & Allergies - Medications Allergies/Adverse Reactions: Allergies buspirone [From BuSpar] Allergy (Verified 04/18/22 12:22) Unknown Penicillins Allergy (Verified 04/18/22 12:22) Rash corn Adverse Reaction (Verified 04/18/22 12:22) Unknown Home Medications: Home Medications Medication Instructions Recorded Confirmed Last Taken Type Sevelamer Carbonate [Renvela] 0.8 gram PO TIDWM 09/02/20 02/02/22 05/31/21 History HYDROcodone/APAP 5-325 [[place] 1 each PO Q4HR PRN #30 tablet 05/18/21 02/02/22 Unknown Rx 5-325 mg TAB] ALBUTEROL NEB's [Proventil 0.083% 2.5 mg IH Q3HRT PRN #1 nebu 03/03/22 Unknown Rx NEBS] Clopidogrel [Plavix] 75 mg PO QDAY #90 tablet 03/03/22 Unknown Rx Divalproex [Sarina Serrano] 750 mg PO BID #60 tablet 03/03/22 Unknown Rx LORazepam [Ativan] 1 mg PO DAILY #30 tab 03/03/22 Unknown Rx Memantine Xr [Namenda Xr] 5 mg PO DAILY #30 cap 03/03/22 Unknown Rx Midodrine [Proamatine] 10 mg PO TID #90 tab 03/03/22 Unknown Rx Pantoprazole [Protonix TAB] 40 mg PO DAILY #30 tab 03/03/22 Unknown Rx QUEtiapine [SEROquel] 400 mg PO BID #60 tab 03/03/22 Unknown Rx risperiDONE [RisperDAL] 0.5 mg PO BID #60 tab 03/03/22 Unknown Rx Active Medications: Generic Name Dose Route Start Last Admin Trade Name Freq PRN Reason Stop Dose Admin Acetaminophen 650 mg 04/19/22 09:55 Acetaminophen 325 Mg Tab PO Q6H PRN Pain MILD(1-3)/Fever >100.5/DRAKE Albuterol 2.5 mg 04/19/22 11:16 Albuterol 2.5 Mg/3 Ml Nebu IH Q3HRT PRN Shortness Of Breath Albuterol/Ipratropium 1 ampul 04/19/22 14:00 04/20/22 08:22 Ipratropium/Albuterol Sulfate 3 Ml Ampul.Neb IH 1 ampul Q6HRT CONNOR Administration Clopidogrel Bisulfate 75 mg 04/19/22 12:00 04/19/22 15:39 Clopidogrel 75 Mg Tab PO 75 mg QDAY CONNOR Administration Divalproex Sodium 750 mg 04/19/22 12:00 04/19/22 21:[address] 250 Mg Tab PO 750 mg BID CONONR Administration NORepinephrine/NS 8 MG-250 ML 8 mg in 250 mls @ 3.75 mls/hr 04/19/22 09:00 04/20/22 08:00 Norepinephrine/Ns 8 Mg-250 Ml (Double Conc) IV 8 mcg/min TITRATE CONNOR 15 mls/hr Titration Protocol 2 MCG/MIN Heparin Sodium/Sodium Chloride 25,000 unit in 500 mls @ 15 mls/hr 04/19/22 18:00 04/20/22 01:32 Heparin/ 0.45% Nacl-25,000 Unit/500 Ml IV 750 units/hr TITR CONNOR 15 mls/hr Titration Protocol 750 UNITS/HR Amiodarone HCl 900 mg/ 500 mls @ 33.333 mls/hr 04/19/22 18:00 04/20/22 01:28 Dextrose IV 0.5 mg/min DIRECT CONNOR 16.667 mls/hr Infusion Protocol 1 MG/MIN Amiodarone HCl 75 mg/ Dextrose 98.5 mls @ 600 mls/hr 04/20/22 11:01 IV 04/20/22 11:10 ONCE ONE Lorazepam 1 mg 04/19/22 12:00 04/19/22 15:39 Lorazepam 1 Mg Tab PO 1 mg DAILY [facility] Administration Metoclopramide HCl 5 mg 04/19/22 09:55 Metoclopramide 10 Mg/2 Ml Inj IV Q6H PRN Nausea And Vomiting Midodrine 15 mg 04/20/22 11:58 Midodrine 10 Mg Tab PO TID [facility] Miscellaneous Medication 5 mg 04/19/22 10:00 Memantine Xr PO DAILY [facility] Morphine Sulfate 2 mg 04/19/22 09:55 04/19/22 14:30 Morphine 2 Mg/1 Ml Inj IV 2 mg Q4H PRN Administration Pain, Moderate (4-6) Naloxone HCl 0.1 mg 04/19/22 09:55 Naloxone 0.4 Mg/1 Ml Inj IV Q2MIN PRN Res Rate </= 8 or 02 SAT < 92% Pantoprazole Sodium 40 mg 04/19/22 12:00 04/19/22 15:39 Pantoprazole 40 Mg Tab PO 40 mg QDAC CONNOR Administration Quetiapine Fumarate 400 mg 04/19/22 12:00 04/19/22 21:51 Quetiapine 200 Mg Tab PO 400 mg BID CONNOR Administration Risperidone 0.5 mg 04/19/22 12:00 04/19/22 21:50 Risperidone 1 Mg Tab PO 0.5 mg BID CONNOR Administration Senna 8.6 mg 04/19/22 12:00 04/20/22 01:26 Sennosides 8.6 Mg Tab PO Not Given BID CONNOR Sevelamer Carbonate 800 mg 04/19/22 12:00 04/19/22 17:57 Sevelamer Carbonate 800 Mg Tab PO 800 mg TIDWM CONNOR Administration Sodium Chloride 10 ml 04/19/22 12:00 04/20/22 01:27 Sodium Chloride 0.9% 10 Ml Flush Syringe IV 10 ml BID CONNOR Administration Sodium Chloride 10 ml 04/19/22 11:19 Sodium Chloride 0.9% 10 Ml Flush Syringe IV PRN PRN LINE FLUSH
--- NOTE | 2022-04-20 12:22 | Progress Note ---
Assessment and Plan Patient is a 66-year-old female with a past medical history of end-stage renal disease on hemodialysis, hypertension, seizure disorder, bipolar disorder, schizophrenia, anxiety, limited mobility, and vascular dementia who presented to the ED from [facility] half-way with report of altered mental status for several days AMS End-stage renal disease on hemodialysis-nephrology following SVT Hypotension-currently on pressors Schizophrenia Vascular dementia Bipolar disorder Hypotension Echo 01/31/2022-EF 60 to 65%. Doppler flow pattern suggests impaired LV relaxation. Right ventricle systolic function is normal trace aortic regurgitation. Trace mitral regurgitation. Plan: Telemetry reviewed patient remains in A. fib with RVR. Initiate half bolus of amiodarone and continue amiodarone drip Anticoagulation with heparin drip Troponins noted to be elevated but have downtrended Suspect NSTEMI type II in setting of end-stage renal disease with missed hemodialysis and following cardioversion Patient currently on Lipitor and Plavix Due to patient's mental status and comorbidities recommend conservative management No MARGOTH, ARB, beta-hernan due to hypotension and currently requiring pressors Agree with midodrine Defer volume management to nephrology due to patient renal function Continue to monitor Patient seen in conjunction with Dr. Dumont who agrees with this plan of care 30 minutes of critical care time spent in care and coordination of patient - Patient Problems (1) Altered mental status Current Visit: Yes Status: Acute (2) Elevated troponin Current Visit: Yes Status: Acute (3) Uremic encephalopathy Current Visit: Yes Status: Acute (4) ESRD (end stage renal disease) on dialysis Current Visit: Yes Status: Chronic (5) Hypotension Current Visit: Yes Status: Chronic Qualifiers: (6) Schizophrenia Current Visit: Yes Status: Chronic Qualifiers: (7) Acute encephalopathy Current Visit: No Status: Acute (8) Bipolar disorder Current Visit: No Status: Acute (9) Cerebral atherosclerosis Current Visit: No Status: Acute Subjective Date of service: 04/20/22 Principal diagnosis: AHRF; Shock; AMS; SVT; NSTEMI; ESRD; Protein calorie malnutrition Interval history: Patient resting in bed in no acute distress. Patient appears with altered mental status A. fib 120s to 130 Objective Vital Signs Temp Pulse Pulse Pulse Resp Resp BP 04/20/22 11:15 134 H 25 H 89/53 04/20/22 11:00 120 H 23 90/46 04/20/22 10:46 136 H 25 H 87/49 04/20/22 10:30 123 H 21 81/55 04/20/22 10:16 123 H 18 86/50 04/20/22 10:00 123 H 22 89/60 04/20/22 09:45 124 H 17 85/52 04/20/22 09:30 132 H 16 90/51 04/20/22 09:15 122 H 21 89/54 04/20/22 09:00 121 H 21 92/51 04/20/22 08:45 123 H 20 87/55 04/20/22 08:30 120 H 21 91/56 04/20/22 08:22 115 H 20 04/20/22 08:21 04/20/22 08:16 119 H 18 91/56 04/20/22 08:00 120 H 120 H 19 85/46 04/20/22 07:46 119 H 18 86/52 04/20/22 07:30 120 H 14 83/53 04/20/22 07:16 117 H 18 81/52 04/20/22 07:00 124 H 17 91/55 04/20/22 06:45 118 H 20 91/55 04/20/22 06:30 124 H 16 89/55 04/20/22 06:15 130 H 24 89/53 04/20/22 06:00 121 H 15 85/49 04/20/22 05:45 78 20 85/49 04/20/22 05:30 135 H 20 101/44 04/20/22 05:16 125 H 20 101/44 04/20/22 05:00 128 H 21 110/57 04/20/22 04:45 116 H 22 108/63 04/20/22 04:30 115 H 16 97/62 04/20/22 04:15 120 H 19 99/56 04/20/22 04:00 123 H 134 H 19 97/62 04/20/22 03:59 97.7 F 04/20/22 03:45 125 H 14 94/52 04/20/22 03:30 81 19 86/44 04/20/22 03:15 75 16 96/51 04/20/22 03:00 115 H 20 95/55 04/20/22 02:45 120 H 20 90/63 04/20/22 02:30 119 H 19 99/52 04/20/22 02:15 121 H 21 99/52 04/20/22 02:00 119 H 116 H 19 21 97/52 04/20/22 01:45 122 H 19 95/61 04/20/22 01:30 117 H 18 93/60 04/20/22 01:15 120 H 17 89/53 04/20/22 01:00 119 H 19 98/58 04/20/22 00:46 87 17 86/53 04/20/22 00:30 121 H 15 93/57 04/20/22 00:16 136 H 19 88/55 04/20/22 00:00 97.6 F 121 H 134 H 14 94/56 04/19/22 23:50 74 04/19/22 23:45 75 20 94/56 04/19/22 23:30 131 H 16 97/68 04/19/22 23:22 73 17 105/69 04/19/22 23:16 124 H 18 105/69 04/19/22 23:05 126 H 15 103/58 04/19/22 23:00 127 H 15 103/58 04/19/22 22:57 129 H 12 92/62 04/19/22 22:45 127 H 13 92/62 04/19/22 22:30 144 H 18 87/48 04/19/22 22:15 122 H 16 91/45 04/19/22 22:00 147 H 18 96/57 04/19/22 21:45 128 H 15 96/57 04/19/22 21:30 148 H 17 94/55 04/19/22 21:17 94/55 04/19/22 21:09 04/19/22 21:07 118 H 18 04/19/22 21:00 132 H 16 91/65 04/19/22 20:45 126 H 14 102/57 04/19/22 20:30 115 H 17 110/68 04/19/22 20:15 120 H 16 110/68 04/19/22 20:00 97.4 F L 125 H 134 H 14 99/56 04/19/22 19:45 121 H 19 99/56 04/19/22 19:30 127 H 17 94/53 04/19/22 19:20 129 H 14 94/53 04/19/22 19:10 154 H 16 95/56 08/03/22 19:00 128 H 14 96/48 04/19/22 18:50 122 H 15 96/48 04/19/22 18:40 124 H 15 85/50 04/19/22 18:30 129 H 17 81/54 04/19/22 18:20 135 H 19 81/54 04/19/22 18:10 124 H 18 74/46 04/19/22 18:00 111 H 17 72/42 04/19/22 17:50 117 H 17 78/48 04/19/22 17:40 153 H 16 83/43 04/19/22 17:30 139 H 14 83/43 04/19/22 17:20 145 H 15 04/19/22 17:10 153 H 17 83/48 04/19/22 17:00 156 H 15 98/58 04/19/22 16:50 155 H 15 98/58 04/19/22 16:40 153 H 19 96/50 04/19/22 16:30 121 H 13 100/52 04/19/22 16:20 132 H 14 100/52 04/19/22 16:12 121 H 22 04/19/22 16:10 153 H 11 L 97/60 04/19/22 16:00 123 H 123 H 15 114/61 04/19/22 15:50 76 12 114/61 04/19/22 15:40 139 H 13 105/63 04/19/22 15:30 79 17 96/41 04/19/22 15:20 77 12 96/41 04/19/22 15:10 68 11 L 98/51 04/19/22 15:00 74 12 98/51 04/19/22 14:50 73 14 101/47 04/19/22 14:40 78 11 L 110/41 04/19/22 14:30 79 16 102/50 04/19/22 14:20 79 13 102/50 04/19/22 14:10 81 14 110/53 04/19/22 14:00 74 14 110/53 04/19/22 13:50 78 18 112/50 04/19/22 13:40 76 17 106/63 04/19/22 13:30 75 17 106/63 04/19/22 13:20 76 14 92/55 04/19/22 13:10 81 11 L 100/41 0803/22 13:00 77 16 100/41 04/19/22 12:50 82 10 L 100/41 04/19/22 12:40 89 17 106/27 04/19/22 12:30 99 H 11 L 04/19/22 12:24 98 H 14 104/43 Pulse Ox 04/20/22 11:15 96 04/20/22 11:00 97 04/20/22 10:46 99 04/20/22 10:30 98 04/20/22 10:16 96 04/20/22 10:00 95 04/20/22 09:45 96 04/20/22 09:30 96 04/20/22 09:15 97 04/20/22 09:00 98 04/20/22 08:45 100 04/20/22 08:30 100 04/20/22 08:22 04/20/22 08:21 99 04/20/22 08:16 100 04/20/22 08:00 100 04/20/22 07:46 100 04/20/22 07:30 99 04/20/22 07:16 99 04/20/22 07:00 96 04/20/22 06:45 97 04/20/22 06:30 99 04/20/22 06:15 92 04/20/22 06:00 100 04/20/22 05:45 100 04/20/22 05:30 96 04/20/22 05:16 100 04/20/22 05:00 100 04/20/22 04:45 100 04/20/22 04:30 100 04/20/22 04:15 100 04/20/22 04:00 100 04/20/22 03:59 100 04/20/22 03:45 100 04/20/22 03:30 99 04/20/22 03:15 99 04/20/22 03:00 100 04/20/22 02:45 100 04/20/22 02:30 100 04/20/22 02:15 100 04/20/22 02:00 100 04/20/22 01:45 100 04/20/22 01:30 100 04/20/22 01:15 04/20/22 01:00 04/20/22 00:46 04/20/22 00:30 04/20/22 00:16 04/20/22 00:00 93 04/19/22 23:50 04/19/22 23:45 04/19/22 23:30 04/19/22 23:22 04/19/22 23:16 04/19/22 23:05 04/19/22 23:00 04/19/22 22:57 04/19/22 22:45 04/19/22 22:30 04/19/22 22:15 04/19/22 22:00 04/19/22 21:45 04/19/22 21:30 04/19/22 21:17 04/19/22 21:09 93 04/19/22 21:07 04/19/22 21:00 04/19/22 20:45 04/19/22 20:30 04/19/22 20:15 04/19/22 20:00 93 04/19/22 19:45 04/19/22 19:30 97 04/19/22 19:20 04/19/22 19:10 04/19/22 19:00 04/19/22 18:50 04/19/22 18:40 04/19/22 18:30 04/19/22 18:20 04/19/22 18:10 04/19/22 18:00 04/19/22 17:50 04/19/22 17:40 04/19/22 17:30 04/19/22 17:20 04/19/22 17:10 04/19/22 17:00 04/19/22 16:50 04/19/22 16:40 04/19/22 16:30 04/19/22 16:20 04/19/22 16:12 04/19/22 16:10 04/19/22 16:00 100 04/19/22 15:50 04/19/22 15:40 04/19/22 15:30 04/19/22 15:20 04/19/22 15:10 100 04/19/22 15:00 100 04/19/22 14:50 100 04/19/22 14:40 100 04/19/22 14:30 100 04/19/22 14:20 100 04/19/22 14:10 100 04/19/22 14:00 100 04/19/22 13:50 100 08/03/22 13:40 04/19/22 13:30 04/19/22 13:20 100 04/19/22 13:10 100 04/19/22 13:00 04/19/22 12:50 04/19/22 12:40 98 04/19/22 12:30 97 04/19/22 12:24 - Physical Examination General: No Apparent Distress HEENT: Positive: Mucus Membranes Dry Neck: Positive: trachea midline Cardiac: Positive: irregularly irregular, Tachycardia Lungs: Positive: Normal Breath Sounds Neuro: Positive: Other (unable to assess) Abdomen: Positive: Soft Skin: Negative: Rash, Suspicious Lesions, Ulceration Extremities: Present: upper extr. pulses, Cool - Labs and Meds Cardiac Enzymes 04/20/22 Range/Units 05:30 AST 11 (5-40) units/L Coagulation 04/19/22 Range/Units 19:40 PT 17.9 H (12.2-14.9) Sec. INR 1.28 H (0.87-1.13) APTT 199.1 H* (24.2-36.6) Sec. CBC 04/19/22 04/20/22 Range/Units 19:40 05:30 WBC 4.1 L (4.5-11.0) K/mm3 RBC 2.97 L (3.65-5.03) M/mm3 Hgb 8.5 L 8.2 L (10.1-14.3) gm/dl Hct 27.8 L 27.1 L (30.3-42.9) % Plt Count 376 314 (140-440) K/mm3 Lymph # (Auto) 1.1 L (1.2-5.4) K/mm3 [place] # (Auto) 0.6 (0.0-0.8) K/mm3 Eos # (Auto) 0.2 (0.0-0.4) K/mm3 Baso # (Auto) 0.0 (0.0-0.1) K/mm3 Comprehensive Metabolic Panel 04/20/22 Range/Units 05:30 Sodium 140 (137-145) mmol/L Potassium 4.7 (3.6-5.0) mmol/L Chloride 100.2 (98-107) mmol/L Carbon Dioxide 21 L (22-30) mmol/L BUN 95 H (7-17) mg/dL Creatinine 6.6 H (0.6-1.2) mg/dL Glucose 139 H (65-100) mg/dL Calcium 9.3 (8.4-10.2) mg/dL AST 11 (5-40) units/L ALT 7 (7-56) units/L Alkaline Phosphatase 101 (35-129) units/L Total Protein 6.4 (6.3-8.2) g/dL Albumin 2.4 L (3.9-5) g/dL - Imaging and Cardiology Echo: report reviewed - Telemetry EKG Rhythm: Atrial Fibrillation - EKG Supraventricular dysrhythmia: atrial fibrillation
[2022-04-20] MEDS ORDERED: AMIODARONE 75 MG in DEXTROSE 5% IN WATER 97 ML IV ONE (12:30)
[2022-04-20] MEDS: MIDODRINE 5 MG TAB PO SCH ×2 (12:41→18:07)
[2022-04-20] MEDS: AMIODARONE 900 MG in DEXTROSE 5% IN WATER 482 ML IV SCH (15:25)
--- NOTE | 2022-04-20 18:22 | Electrocardiograph Report ---
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
--- NOTE | 2022-04-20 18:27 | Electrocardiograph Report ---
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
--- NOTE | 2022-04-20 18:28 | Electrocardiograph Report ---
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
[2022-04-20] MEDS ORDERED: DIVALPROEX DR 250 MG TAB PO SCH (22:00)
[2022-04-20] MEDS ORDERED: DIVALPROEX DR 500 MG TAB PO SCH (22:00)
[2022-04-21] MEDS: DIVALPROEX DR 250 MG TAB PO SCH ×3 (00:53→23:23)
[2022-04-21] MEDS: SENNOSIDES 8.6 MG TAB PO SCH ×3 (00:53→23:29)
[2022-04-21] MEDS: risperiDONE 1 MG TAB PO SCH ×3 (00:53→23:29)
[2022-04-21] MEDS: QUEtiapine 200 MG TAB PO SCH ×3 (00:54→23:30)
[2022-04-21] MEDS: HEPARIN/ 0.45% NACL DRIP 25,000 UNIT/500 ML BAG IV SCH (03:11)
[2022-04-21 04:09] LABS: Hematocrit 24.7 % (30.3-42.9); Hemoglobin 7.7 gm/dl (10.1-14.3); Mean Corpuscular HGB Conc 31 % (30-34); Mean Corpuscular Volume 90 fl (79-97); Platelet Count 334 K/mm3 (140-440); Red Blood Count 2.74 M/mm3 (3.65-5.03); Red Cell Distribution Width 16.6 % (13.2-15.2)
[2022-04-21] MEDS: IPRATROPIUM/ALBUTEROL SULFATE 3 ML AMPUL.NEB IH SCH ×4 (04:17→20:37)
[2022-04-21 04:44] LABS: Calcium 9.1 mg/dL (8.4-10.2)
[2022-04-21] MEDS: PANTOPRAZOLE 40 MG TAB PO SCH (07:51)
[2022-04-21] MEDS ORDERED: ALBUTEROL 2.5 MG/3 ML NEBU IH PRN (08:30)
[2022-04-21] MEDS: MIDODRINE 5 MG TAB PO SCH ×3 (08:52→17:46)
[2022-04-21] MEDS: SEVELAMER CARBONATE 800 MG TAB PO SCH ×3 (08:52→17:26)
[2022-04-21] MEDS: NORepinephrine/NS 8 MG-250 ML 8 MG/250 ML INFUS..BTL IV SCH (10:20)
--- NOTE | 2022-04-21 11:49 | Progress Note ---
<COLLETTE HANNA - Last Filed: 04/21/22 19:19> Assessment and Plan Assessment and plan: This is a 66-year-old female with known past medical history of HTN, GERD, Seizure disorder, vascular dementia, ESRD on HD(TTS), OA, bipolar disorder, schizophrenia, anxiety disorder, and limited mobility admitted for Acute hypxic respiratory, hypotension, and SVT s/p X2 doses adenosine and cardioversion. Hospital Course to Date: 04/20: Patient went into Afib with RVR overnight, now on amiodarone gtt per yan culelo. Patient remains in AFib with RVR this am, HR in the 120-140s. BP marginal on Levophed gtt, currently not a candidate for BB. Midodrine increased to 15mg TID. 2D Echo pending. On heparin gtt per protocol. No HD today per nephro due to hypotension and tachycardia. 04/21: Converted to SR this am, remains on Amiodarone and heparin. Awaiting cardio final recommendations. Still on Levophed gtt for low BP, given patient history of chronic hypotension, Wean pressor for MAP goal of 60s. Patient is pocketing foods, currently NPO, awaiting speech eval and treat. Assessement and Plan #Atrial Fibrillation with RVR #Supraventricular Tachycardia s/p Cardioversion #Acute on Chronic Hypotension #NSTEMI Type 2 - Presented with AMS, Tachycardia, and hypotension requiring pressors - was found in SVT in the ED s/p unsuccessful X2 doses of adenosine then cardioversion. - Patient initially converted to SR post cardioversion, then went into afib RVR in the ICU - Elevated troponin most likely related to ESRD - Cardiology consulted, appreciate recommendations - Converted to SR this am, HR in the 70-80s - Patient remains on Amiodarone and heparin gtts per cardio - Per patient's son, patient is hypotensive at baseline - Continue blood pressure monitor per protocol - Titrate pressors for MAP goal of 60 - Continue Midodrine TID - Not a candidate for MARGOTH, ARB, and BB due to hypotension - 2D Echo EF 60-65% - on Lipitor and Plavix - CCM also following #Acute Hypoxic Respiratory Failure - Presented with low SPO2, in the 70s on RA - probably related to above - Patient currently stable on 2L NC, no respiratory distress noted - Rate control per cardiology - Continue O2 supplementation and wean as tolerated - Continue SPO2 monitoring for SPO2 goal above 92% #Acute Metabolic Encephalopathy #H/o Vascular Dementia #Severe Anxiety #Bipolar Disorder & Schizophrenia - Presented with AMS, probably due to above - Mentation approved- Drowsy but AAO, following commands - Resume home meds - PRN Analgesia for pain control - Maintenance of sleep-wake cycle - Mental Health/Psych on consult #End-Stage Renal Disease(ESRD) on HD - Nephrology on consult, appreciated recommendation - No HD yesterday per Nephro due to hypotension and tachycardia - Strict intake and output - Avoid nephrotoxic medications; Renally dose medications - Monitor and replace electrolytes as needed #Anemia of Chronic Disease - most likely secondary to ESRD - H&H stable, no s/s of any active bleeding - Epogen with HD per Nephro - Continue to trend H&H - Transfuse for hgb less than 7 #H/o Seizure Disorder - Resume home meds #Moderate Protein Caloric Malnutrition - Patient noted with poor dentition, diet switched to pureed - Encourage PO intake and nutrition supplement - Nutrition consulted #GI/DVT Prophylaxis - PPI- Protonix - Heparin gtt - SCDs to bilateral lower extremities while in bed The high probability of a clinically significant, sudden or life threatening deterioration of the [multiple] system(s) required my full and direct attention, intervention and personal management. The aggregate critical care time was [60] minutes. This time is in addition to time spent performing reported procedures but includes the following: [x] Data Review and interpretation [x] Patient assessment and monitoring of vital signs [x] Documentation [x] Medication orders and management Disposition Plan: ICU Total Time Spent with Patient (Minutes): 60 History Interval history: Patient seen and examined at the bedside. Drowsy but AAO, following commands, on 3L NC. Denied any pain nor any discomfort at this time. Patient converted to SR this am, remains on amiodarone and heparin gtt. Patient pocketing foods overnight, pending speech eval and treat. Hospitalist Physical - Physical exam Narrative exam: General appearance: Present: no acute distress, well-nourished, obese - EENT Eyes: Present: PERRL ENT: hearing intact, poor dentition - Neck Neck: Present: normal ROM - Respiratory Respiratory effort: normal Respiratory: bilateral: diminished - Cardiovascular Rhythm: irregularly irregular Heart Sounds: Present: S1 & S2 - Extremities Extremities: no ischemia, pulses intact, pulses symmetrical Extremity abnormal: edema - Peripheral Assessment Generalized Edema Type: Non-pitting Edema Degree: 2+ Capillary Refill: < 3 seconds Skin Temperature: Warm Peripheral Pulses: within normal limits - Abdominal General gastrointestinal: soft, non-distended, normal bowel sounds - Integumentary Integumentary: Present: warm, dry - Psychiatric Psychiatric: appropriate mood/affect, cooperative, other (Drowsy) - Neurologic Neurologic: moves all extremities, other (Drowsy) - Allied Health Allied health notes reviewed: nursing, case management - Constitutional Vitals: Temp Pulse Resp BP Pulse Ox 97.6 F 70 17 95/49 100 04/21/22 03:27 04/21/22 09:45 04/21/22 09:45 04/21/22 09:45 04/21/22 09:45 HEART Score - HEART Score Troponin: Troponin T 0.415 ng/mL (0.00-0.029) H* 04/19/22 04:53 Results - Labs CBC & Chem 7: 04/21/22 04:00 04/21/22 04:00 Labs: Laboratory Last Values WBC 5.1 K/mm3 (4.5-11.0) 04/21/22 04:00 RBC 2.74 M/mm3 (3.65-5.03) L 04/21/22 04:00 Hgb 7.7 gm/dl (10.1-14.3) L 04/21/22 04:00 Hct 24.7 % (30.3-42.9) L 04/21/22 04:00 MCV 90 fl (79-97) 04/21/22 04:00 MCH 28 pg (28-32) 04/21/22 04:00 MCHC 31 % (30-34) 04/21/22 04:00 RDW 16.6 % (13.2-15.2) H 04/21/22 04:00 Plt Count 334 K/mm3 (140-440) 04/21/22 04:00 Lymph % (Auto) 26.7 % (13.4-35.0) 04/20/22 05:30 [place] % (Auto) 15.2 % (0.0-7.3) H 04/20/22 05:30 Eos % (Auto) 3.8 % (0.0-4.3) 04/20/22 05:30 Baso % (Auto) 1.2 % (0.0-1.8) 04/20/22 05:30 Lymph # (Auto) 1.1 K/mm3 (1.2-5.4) L 04/20/22 05:30 [place] # (Auto) 0.6 K/mm3 (0.0-0.8) 04/20/22 05:30 Eos # (Auto) 0.2 K/mm3 (0.0-0.4) 04/20/22 05:30 Baso # (Auto) 0.0 K/mm3 (0.0-0.1) 04/20/22 05:30 Seg Neutrophils % 53.1 % (40.0-70.0) 04/20/22 05:30 Seg Neutrophils # 2.2 K/mm3 (1.8-7.7) 04/20/22 05:30 PT 17.9 Sec. (12.2-14.9) H 04/19/22 19:40 INR 1.28 (0.87-1.13) H 04/19/22 19:40 APTT 199.1 Sec. (24.2-36.6) H* 04/19/22 19:40 Heparin Anti-Xa Level 0.17 U.I./ml (0.3-0.7) L 04/21/22 00:29 Sodium 133 mmol/L (137-145) L 04/21/22 04:00 Potassium 4.7 mmol/L (3.6-5.0) 04/21/22 04:00 Chloride 98.5 mmol/L (98-107) 04/21/22 04:00 Carbon Dioxide 20 mmol/L (22-30) L 04/21/22 04:00 Anion Gap 19 mmol/L 04/21/22 04:00 BUN 89 mg/dL (7-17) H 04/21/22 04:00 Creatinine 6.6 mg/dL (0.6-1.2) H 04/21/22 04:00 Estimated GFR 8 ml/min 04/21/22 04:00 BUN/Creatinine Ratio 13 % 04/21/22 04:00 Glucose 131 mg/dL (65-100) H 04/21/22 04:00 Lactic Acid 1.60 mmol/L (0.7-2.0) 04/19/22 07:14 Calcium 9.1 mg/dL (8.4-10.2) 04/21/22 04:00 Phosphorus 6.40 mg/dL (2.5-4.5) H 04/21/22 04:00 Magnesium 2.50 mg/dL (1.7-2.3) H 04/21/22 04:00 Total Bilirubin 0.30 mg/dL (0.1-1.2) 04/20/22 05:30 AST 11 units/L (5-40) 04/20/22 05:30 ALT 7 units/L (7-56) 04/20/22 05:30 Alkaline Phosphatase 101 units/L (35-129) 04/20/22 05:30 Ammonia 25.0 umol/L (25-60) 04/19/22 04:53 Troponin T 0.415 ng/mL (0.00-0.029) H* 04/19/22 04:53 Total Protein 6.4 g/dL (6.3-8.2) 04/20/22 05:30 Albumin 2.4 g/dL (3.9-5) L 04/20/22 05:30 Albumin/Globulin Ratio 0.6 % 04/20/22 05:30 TSH 1.700 mlU/mL (0.270-4.200) 04/19/22 04:53 Free T4 0.28 ng/dL (0.76-1.46) L 04/19/22 04:53 Hepatitis A IgM Ab Non-reactive (NonReactive) 04/19/22 04:53 Hep Bs Antigen Non-reactive (Negative) 04/19/22 04:53 Hep B Core IgM Ab Non-reactive (NonReactive) 04/19/22 04:53 Hepatitis C Antibody Non-reactive (NonReactive) 04/19/22 04:53 Microbiology: Microbiology 04/19/22 05:43 Peripheral/Venous Blood Culture - Preliminary NO GROWTH AFTER 48 HOURS 04/19/22 04:53 Peripheral/Venous Blood Culture - Preliminary NO GROWTH AFTER 48 HOURS Cleary/IV: Voiding Method Incontinent Active Medications - Current Medications Current Medications: Generic Name Dose Route Start Last Admin Trade Name Freq PRN Reason Stop Dose Admin Acetaminophen 650 mg 04/19/22 09:55 Acetaminophen 325 Mg Tab PO Q6H PRN Pain MILD(1-3)/Fever >100.5/DRAKE Albuterol 2.5 mg 04/21/22 08:30 Albuterol 2.5 Mg/3 Ml Nebu IH Q3HRT PRN Shortness Of Breath Albuterol/Ipratropium 1 ampul 04/21/22 14:00 Ipratropium/Albuterol Sulfate 3 Ml Ampul.Neb IH TIDRT CONNOR Clopidogrel Bisulfate 75 mg 04/19/22 12:00 04/20/22 09:50 Clopidogrel 75 Mg Tab PO 75 mg QDAY CONNOR Administration Divalproex Sodium 750 mg 04/20/22 22:00 04/21/22 00:[address] 250 Mg Tab PO Not Given BID CONNOR NORepinephrine/NS 8 MG-250 ML 8 mg in 250 mls @ 3.75 mls/hr 04/19/22 09:00 04/21/22 10:20 Norepinephrine/Ns 8 Mg-250 Ml (Double Conc) IV 8 mcg/min TITRATE CONNOR 15 mls/hr Administration Protocol 2 MCG/MIN Heparin Sodium/Sodium Chloride 25,000 unit in 500 mls @ 15 mls/hr 04/19/22 18:00 04/21/22 03:11 Heparin/ 0.45% Nacl-25,000 Unit/500 Ml IV 750 units/hr TITR CONNOR 15 mls/hr Administration Protocol 750 UNITS/HR Amiodarone HCl 900 mg/ 500 mls @ 33.333 mls/hr 04/19/22 18:00 04/20/22 20:19 Dextrose IV 0.5 mg/min DIRECT CONNOR 16.667 mls/hr Infusion Protocol 1 MG/MIN Lorazepam 1 mg 04/19/22 12:00 04/20/22 09:50 Lorazepam 1 Mg Tab PO 1 mg DAILY [facility] Administration Metoclopramide HCl 5 mg 04/19/22 09:55 Metoclopramide 10 Mg/2 Ml Inj IV Q6H PRN Nausea And Vomiting Midodrine 15 mg 04/20/22 13:00 04/21/22 08:52 Midodrine 5 Mg Tab PO Not Given 0800,1300,1800 [facility] Miscellaneous Medication 5 mg 04/19/22 10:00 Memantine Xr PO DAILY [facility] Morphine Sulfate 2 mg 04/19/22 09:55 04/19/22 14:30 Morphine 2 Mg/1 Ml Inj IV 2 mg Q4H PRN Administration Pain, Moderate (4-6) Naloxone HCl 0.1 mg 04/19/22 09:55 Naloxone 0.4 Mg/1 Ml Inj IV Q2MIN PRN Res Rate </= 8 or 02 SAT < 92% Pantoprazole Sodium 40 mg 04/19/22 12:00 04/21/22 07:51 Pantoprazole 40 Mg Tab PO Not Given QDAC CONNOR Quetiapine Fumarate 400 mg 04/19/22 12:00 04/21/22 00:54 Quetiapine 200 Mg Tab PO Not Given BID CONNOR Risperidone 0.5 mg 04/19/22 12:00 04/21/22 00:53 Risperidone 1 Mg Tab PO Not Given BID CONNOR Senna 8.6 mg 04/19/22 12:00 04/21/22 00:53 Sennosides 8.6 Mg Tab PO Not Given BID CONNOR Sevelamer Carbonate 800 mg 04/19/22 12:00 04/21/22 08:52 Sevelamer Carbonate 800 Mg Tab PO Not Given TIDWM CONNOR Sodium Chloride 10 ml 04/19/22 12:00 04/21/22 00:54 Sodium Chloride 0.9% 10 Ml Flush Syringe IV 10 ml BID CONNOR Administration Sodium Chloride 10 ml 04/19/22 11:19 Sodium Chloride 0.9% 10 Ml Flush Syringe IV PRN PRN LINE FLUSH Nutrition/Malnutrition Assess - Dietary Evaluation Nutrition/Malnutrition Findings: Nutrition Notes Start: 04/19/22 17:39 Freq: Status: Active Protocol: Document 04/19/22 17:39 MIRIAN (Rec: 04/19/22 17:59 MIRIAN [id number]) Nutrition Notes Need for Assessment generated from: MD Order Initial or Follow up Assessment Current Diagnosis CKD (stage V CKD),Hypertension ,Respiratory Failure, Malnutrition Other Pertinent Diagnosis Metabolic Encephalopathy, ESRD +HD, COVID-19, Anemia, NSTEMI II, ... Current Diet Renal Diet (since L 04/19). Labs/Tests 04/19: K 5.1, CO2 21, BUN 94, Crea 6.3. Pertinent Medications 04/19: Nutritionally unremarkable. Height 5 ft 2 in Weight 54.431 kg [place] Body Weight (kg) 50.00 BMI 21.9 Weight change and time frame None provided at admission. Weight Status Appropriate Subjective/Other Information RD consult for malnutrition assessment. No reports available on Pt's PO intake of meals at the time , will assess at F/U. Pt is on Nasal Cannula, O2 saturation @ 100%, according to Physical Assessment History notes. Pt has missing teeth, according to Physical Assessment History notes. Pt has limited mobility, according to History & Physical notes. Procedure on 04/19: R-FV triple-lumen HD Catheter placemnt, well tolerated, according to Procedure notes. Pt presents a healing sacral wound, intact and no further signs of concern for skin risk at the time, according to Physical Assessment History notes. Pt shows no signs of concern for malnutrition at the time with the information available on chert, will reassess at F/ U. Percent of energy/protein needs met: Prescribed Renal Diet provides for energy/protein needs (2, 072 Kcal/77 g) during LOS. Burn Absent Trauma Absent GI Symptoms None Food Allergy Yes Skin Integrity/Comment Healing Sacral wound, intact. #1 Nutrition Diagnosis No nutrition diagnosis at this time Is patient on ventilator? No Is Patient Ambulatory and/or Out of Bed No REE-(Organ-St. Jeor-confined to bed) 1244.856 Calculation Used for Recommendations Organ-St or Additional Notes Protein: >1.2 g/Kg ABW; >65 g/ day. Fluids: 1 ml/Kcal, or as per MD. Nutrition Intervention Change Diet Order: Continue Renal Diet as tolerated. Follow-Up By: 04/26/22 Additional Comments Continue monitoring food tolerance, %PO intake of meals , and BM. <MELINDA BOWEN - Last Filed: 04/22/22 07:27> Assessment and Plan Assessment and plan: I saw and evaluated the patient. I agree with the findings and the plan of care as documented in the Nurse Practitioner's~note, with the following corrections and additions. Hospitalist Physical - Constitutional Vitals: Temp Pulse Resp BP Pulse Ox 96.1 F L 73 21 94/43 100 04/22/22 04:00 04/22/22 07:00 04/22/22 07:00 04/22/22 07:00 04/22/22 07:00 HEART Score - HEART Score Troponin: Troponin T 0.415 ng/mL (0.00-0.029) H* 04/19/22 04:53 Results - Labs CBC & Chem 7: 04/21/22 04:00 04/22/22 03:45 Labs: Laboratory Last Values WBC 5.1 K/mm3 (4.5-11.0) 04/21/22 04:00 RBC 2.74 M/mm3 (3.65-5.03) L 04/21/22 04:00 Hgb 7.7 gm/dl (10.1-14.3) L 04/21/22 04:00 Hct 24.7 % (30.3-42.9) L 04/21/22 04:00 MCV 90 fl (79-97) 04/21/22 04:00 MCH 28 pg (28-32) 04/21/22 04:00 MCHC 31 % (30-34) 04/21/22 04:00 RDW 16.6 % (13.2-15.2) H 04/21/22 04:00 Plt Count 334 K/mm3 (140-440) 04/21/22 04:00 Lymph % (Auto) 26.7 % (13.4-35.0) 04/20/22 05:30 [place] % (Auto) 15.2 % (0.0-7.3) H 04/20/22 05:30 Eos % (Auto) 3.8 % (0.0-4.3) 04/20/22 05:30 Baso % (Auto) 1.2 % (0.0-1.8) 04/20/22 05:30 Lymph # (Auto) 1.1 K/mm3 (1.2-5.4) L 04/20/22 05:30 [place] # (Auto) 0.6 K/mm3 (0.0-0.8) 04/20/22 05:30 Eos # (Auto) 0.2 K/mm3 (0.0-0.4) 04/20/22 05:30 Baso # (Auto) 0.0 K/mm3 (0.0-0.1) 04/20/22 05:30 Seg Neutrophils % 53.1 % (40.0-70.0) 04/20/22 05:30 Seg Neutrophils # 2.2 K/mm3 (1.8-7.7) 04/20/22 05:30 PT 17.9 Sec. (12.2-14.9) H 04/19/22 19:40 INR 1.28 (0.87-1.13) H 04/19/22 19:40 APTT 199.1 Sec. (24.2-36.6) H* 04/19/22 19:40 Heparin Anti-Xa Level < 0.10 U.I./ml (0.3-0.7) L 04/22/22 03:45 Sodium 136 mmol/L (137-145) L 04/22/22 03:45 Potassium 4.4 mmol/L (3.6-5.0) 04/22/22 03:45 Chloride 99.6 mmol/L (98-107) 04/22/22 03:45 Carbon Dioxide 18 mmol/L (22-30) L 04/22/22 03:45 Anion Gap 23 mmol/L 04/22/22 03:45 BUN 90 mg/dL (7-17) H 04/22/22 03:45 Creatinine 6.3 mg/dL (0.6-1.2) H 04/22/22 03:45 Estimated GFR 8 ml/min 04/22/22 03:45 BUN/Creatinine Ratio 14 % 04/22/22 03:45 Glucose 121 mg/dL (65-100) H 04/22/22 03:45 Lactic Acid 1.60 mmol/L (0.7-2.0) 04/19/22 07:14 Calcium 9.1 mg/dL (8.4-10.2) 04/22/22 03:45 Phosphorus 6.50 mg/dL (2.5-4.5) H 04/22/22 03:45 Magnesium 2.30 mg/dL (1.7-2.3) 04/22/22 03:45 Total Bilirubin 0.30 mg/dL (0.1-1.2) 04/20/22 05:30 AST 11 units/L (5-40) 04/20/22 05:30 ALT 7 units/L (7-56) 04/20/22 05:30 Alkaline Phosphatase 101 units/L (35-129) 04/20/22 05:30 Ammonia 25.0 umol/L (25-60) 04/19/22 04:53 Troponin T 0.415 ng/mL (0.00-0.029) H* 04/19/22 04:53 Total Protein 6.4 g/dL (6.3-8.2) 04/20/22 05:30 Albumin 2.4 g/dL (3.9-5) L 04/20/22 05:30 Albumin/Globulin Ratio 0.6 % 04/20/22 05:30 TSH 1.700 mlU/mL (0.270-4.200) 04/19/22 04:53 Free T4 0.28 ng/dL (0.76-1.46) L 04/19/22 04:53 Hepatitis A IgM Ab Non-reactive (NonReactive) 04/19/22 04:53 Hep Bs Antigen Non-reactive (Negative) 04/19/22 04:53 Hep B Core IgM Ab Non-reactive (NonReactive) 04/19/22 04:53 Hepatitis C Antibody Non-reactive (NonReactive) 04/19/22 04:53 Microbiology: Microbiology 04/19/22 04:53 Peripheral/Venous Blood Culture - Preliminary NO GROWTH AFTER 72 HOURS 04/19/22 05:43 Peripheral/Venous Blood Culture - Preliminary NO GROWTH AFTER 72 HOURS Cleary/IV: Voiding Method Incontinent Active Medications - Current Medications Current Medications: Generic Name Dose Route Start Last Admin Trade Name Freq PRN Reason Stop Dose Admin Acetaminophen 650 mg 04/19/22 09:55 Acetaminophen 325 Mg Tab PO Q6H PRN Pain MILD(1-3)/Fever >100.5/DRAKE Albumin Human 25 gm 04/21/22 13:00 Albumin Human 25% (25 Gm/100 Ml) Inj IV BIANCA PRN Hypotension Albuterol 2.5 mg 04/21/22 08:30 Albuterol 2.5 Mg/3 Ml Nebu IH Q3HRT PRN Shortness Of Breath Albuterol/Ipratropium 1 ampul 04/21/22 14:00 04/21/22 20:37 Ipratropium/Albuterol Sulfate 3 Ml Ampul.Neb IH 1 ampul TIDRT CONNOR Administration Clopidogrel Bisulfate 75 mg 04/19/22 12:00 04/21/22 12:04 Clopidogrel 75 Mg Tab PO Not Given QDAY CONNOR Divalproex Sodium 750 mg 04/20/22 22:00 04/21/22 23:[address] 250 Mg Tab PO 750 mg BID CONNOR Administration Epoetin Lb-epbx 10,000 unit 04/21/22 13:00 Epoetin Lb-Epbx 10,000 Unit/1 Ml Vial IV BIANCA PRN hemodialysis NORepinephrine/NS 8 MG-250 ML 8 mg in 250 mls @ 3.75 mls/hr 04/19/22 09:00 04/22/22 03:24 Norepinephrine/Ns 8 Mg-250 Ml (Double Conc) IV 8 mcg/min TITRATE CONNOR 15 mls/hr Administration Protocol 2 MCG/MIN Heparin Sodium/Sodium Chloride 25,000 unit in 500 mls @ 15 mls/hr 04/19/22 18:00 04/22/22 06:33 Heparin/ 0.45% Nacl-25,000 Unit/500 Ml IV 850 units/hr TITR CONNOR 17 mls/hr Titration Protocol 750 UNITS/HR Sodium Chloride 100 mls @ 999 mls/hr 04/21/22 13:02 Nacl 0.9% IV BIANCA PRN Hypotension Lorazepam 1 mg 04/19/22 12:00 04/21/22 12:05 Lorazepam 1 Mg Tab PO Not Given DAILY CONNOR Metoclopramide HCl 5 mg 04/19/22 09:55 Metoclopramide 10 Mg/2 Ml Inj IV Q6H PRN Nausea And Vomiting Midodrine 15 mg 04/20/22 13:00 04/21/22 17:46 Midodrine 5 Mg Tab PO 15 mg 0800,1300,1800 [facility] Administration Miscellaneous Medication 5 mg 04/19/22 10:00 Memantine Xr PO DAILY [facility] Morphine Sulfate 2 mg 04/19/22 09:55 04/19/22 14:30 Morphine 2 Mg/1 Ml Inj IV 2 mg Q4H PRN Administration Pain, Moderate (4-6) Naloxone HCl 0.1 mg 04/19/22 09:55 Naloxone 0.4 Mg/1 Ml Inj IV Q2MIN PRN Res Rate </= 8 or 02 SAT < 92% Pantoprazole Sodium 40 mg 04/19/22 12:00 04/21/22 07:51 Pantoprazole 40 Mg Tab PO Not Given QDAC CONNOR Quetiapine Fumarate 400 mg 04/19/22 12:00 04/21/22 23:30 Quetiapine 200 Mg Tab PO 400 mg BID CONNOR Administration Risperidone 0.5 mg 04/19/22 12:00 04/21/22 23:29 Risperidone 1 Mg Tab PO 0.5 mg BID CONNOR Administration Senna 8.6 mg 04/19/22 12:00 04/21/22 23:29 Sennosides 8.6 Mg Tab PO 8.6 mg BID CONNOR Administration Sevelamer Carbonate 800 mg 04/19/22 12:00 04/21/22 17:26 Sevelamer Carbonate 800 Mg Tab PO Not Given TIDWM CONNOR Sodium Chloride 10 ml 04/19/22 12:00 04/22/22 00:55 Sodium Chloride 0.9% 10 Ml Flush Syringe IV 10 ml BID CONNOR Administration Sodium Chloride 10 ml 04/19/22 11:19 Sodium Chloride 0.9% 10 Ml Flush Syringe IV PRN PRN LINE FLUSH Nutrition/Malnutrition Assess - Dietary Evaluation Nutrition/Malnutrition Findings: Nutrition Notes Start: 04/19/22 17:39 Freq: Status: Active Protocol: Document 04/19/22 17:39 MIRIAN (Rec: 04/19/22 17:59 MIRIAN [id number]) Nutrition Notes Need for Assessment generated from: MD Order Initial or Follow up Assessment Current Diagnosis CKD (stage V CKD),Hypertension ,Respiratory Failure, Malnutrition Other Pertinent Diagnosis Metabolic Encephalopathy, ESRD +HD, COVID-19, Anemia, NSTEMI II, ... Current Diet Renal Diet (since L 04/19). Labs/Tests 04/19: K 5.1, CO2 21, BUN 94, Crea 6.3. Pertinent Medications 04/19: Nutritionally unremarkable. Height 5 ft 2 in Weight 54.431 kg [place] Body Weight (kg) 50.00 BMI 21.9 Weight change and time frame None provided at admission. Weight Status Appropriate Subjective/Other Information RD consult for malnutrition assessment. No reports available on Pt's PO intake of meals at the time , will assess at F/U. Pt is on Nasal Cannula, O2 saturation @ 100%, according to Physical Assessment History notes. Pt has missing teeth, according to Physical Assessment History notes. Pt has limited mobility, according to History & Physical notes. Procedure on 04/19: R-FV triple-lumen HD Catheter placemnt, well tolerated, according to Procedure notes. Pt presents a healing sacral wound, intact and no further signs of concern for skin risk at the time, according to Physical Assessment History notes. Pt shows no signs of concern for malnutrition at the time with the information available on chert, will reassess at F/ U. Percent of energy/protein needs met: Prescribed Renal Diet provides for energy/protein needs (2, 072 Kcal/77 g) during LOS. Burn Absent Trauma Absent GI Symptoms None Food Allergy Yes Skin Integrity/Comment Healing Sacral wound, intact. #1 Nutrition Diagnosis No nutrition diagnosis at this time Is patient on ventilator? No Is Patient Ambulatory and/or Out of Bed No REE-(Organ-St. Jeor-confined to bed) 1244.856 [facility]culation [facility] Additional Notes Protein: >1.2 g/Kg ABW; >65 g/ day. Fluids: 1 ml/Kcal, or as per MD. Nutrition Intervention Change Diet Order: Continue Renal Diet as tolerated. Follow-Up By: 04/26/22 Additional Comments Continue monitoring food tolerance, %PO intake of meals , and BM.
--- NOTE | 2022-04-21 11:53 | Progress Note ---
Assessment and Plan Acute hypoxemic respiratory failure, Acute on Chronic Hypotension Acute on Chronic Metabolic Encephalopathy Possible Shock Syndrome SVT Elevated troponin, Bipolar disorder, Schizophrenia, Hyperkalemia ESRD on hemodialysis, Anemia of chronic disease, Type 2 NSTEMI GERD Subclinical Hypothyroidism Moderate protein caloric malnutrition - NPO till swallow evaluation done - continue Midodrine but at 15 mg p.o. tid for BP support - wean Levophed for target MAP > 65 mmHg - continue care as below otherwise; - continue accuchecks with glycemic control per SSI (While critically ill target blood glucose of 140-180 mg/dL; avoid hypoglycemia) - continue supplemental oxygen for target O2 sat's > 90% acutely - aspiration precautions - prn bronchodilators with pulmonary hygiene per RT - avoid nephrotoxins, renally dose all medications - continue to avoid benzodiazepine's, reduce the possibility of delirium - AB's per ID rec's - prn analgesia per pain score - Maintenance of sleep-wake cycle, avoid delirium - G.I. & VTE prophylaxis - PT/OT/ROM exercises - continue mobility protocols for pressure ulcer prophylaxis - Monitor hemodynamics closely - continue other care per attending / other consultants - discharge planning ongoing concurrently .... Re-evaluate in am & prn CONDITION: CRITICAL PROGNOSIS: GUARDED CODE STATUS: FULL CODE The high probability of a clinically significant, sudden or life-threatening deterioration of the [respiratory, cardiovascular, renal & neurologic] system(s) required my full and direct attention, intervention and personal management. The aggregate critical care time was [32] minutes without overlap. Time includes spent on; [x] Data Review and interpretation [x] Patient assessment and monitoring of vital signs [x] Documentation [x] Medication orders and management Subjective Date of service: 04/21/22 Principal diagnosis: AHRF; Shock; AMS; SVT; NSTEMI; ESRD; Protein calorie malnutrition Interval history: Patient is seen today for: Acute hypoxemic respiratory failure; Shock / Hypotension; AMS; SVT; NSTEMI; Schizophrenia; ESRD on Dialysis; Moderate protein caloric malnutrition Seen and examined at bedside; 24hour events reviewed; nursing and respiratory care staff consulted; no adverse overnight events reported to me; resting in bed; remains on Levophed drip; denies acute chest pains or palpitations; awaiting swallow evaluation; no N/V/F/C Objective Vital Signs - 12hr 04/21/22 04/21/22 04/21/22 00:00 00:15 00:31 Temperature Pulse Rate 142 H 133 H 148 H Pulse Rate [ Anterior] Pulse Rate [ 142 H From Monitor] Respiratory 20 20 13 Rate Respiratory Rate [Anterior] Blood Pressure 87/57 96/52 96/52 O2 Sat by Pulse 98 99 97 Oximetry 04/21/22 04/21/22 04/21/22 00:45 01:00 01:15 Temperature Pulse Rate 132 H 128 H 126 H Pulse Rate [ Anterior] Pulse Rate [ From Monitor] Respiratory 23 21 20 Rate Respiratory Rate [Anterior] Blood Pressure 97/58 91/56 92/63 O2 Sat by Pulse 99 100 100 Oximetry 04/21/22 04/21/22 04/21/22 01:31 01:45 02:01 Temperature Pulse Rate 132 H 133 H 149 H Pulse Rate [ Anterior] Pulse Rate [ From Monitor] Respiratory 21 27 H 14 Rate Respiratory Rate [Anterior] Blood Pressure 95/65 95/65 98/52 O2 Sat by Pulse 100 100 98 Oximetry 04/21/22 04/21/22 04/21/22 02:15 02:31 02:45 Temperature Pulse Rate 130 H 124 H 134 H Pulse Rate [ Anterior] Pulse Rate [ From Monitor] Respiratory 21 22 21 Rate Respiratory Rate [Anterior] Blood Pressure 103/54 103/61 104/69 O2 Sat by Pulse 100 100 100 Oximetry 04/21/22 04/21/22 04/21/22 03:00 03:15 03:27 Temperature 97.6 F Pulse Rate 128 H 130 H Pulse Rate [ Anterior] Pulse Rate [ From Monitor] Respiratory 19 26 H Rate Respiratory Rate [Anterior] Blood Pressure 107/64 98/57 O2 Sat by Pulse 100 100 Oximetry 04/21/22 04/21/22 04/21/22 03:30 03:45 04:00 Temperature Pulse Rate 80 76 82 Pulse Rate [ Anterior] Pulse Rate [ 80 From Monitor] Respiratory 23 24 24 Rate Respiratory Rate [Anterior] Blood Pressure 105/56 96/54 88/45 O2 Sat by Pulse 98 99 98 Oximetry 04/21/22 04/21/22 04/21/22 04:15 04:18 04:30 Temperature Pulse Rate 93 H 79 Pulse Rate [ 80 Anterior] Pulse Rate [ From Monitor] Respiratory 13 16 Rate Respiratory 19 Rate [Anterior] Blood Pressure 94/49 98/54 O2 Sat by Pulse 97 99 Oximetry 04/21/22 04/21/22 04/21/22 04:45 05:00 05:15 Temperature Pulse Rate 77 77 75 Pulse Rate [ Anterior] Pulse Rate [ From Monitor] Respiratory 21 15 14 Rate Respiratory Rate [Anterior] Blood Pressure 96/50 100/59 95/50 O2 Sat by Pulse 99 100 100 Oximetry 04/21/22 04/21/22 04/21/22 05:30 05:45 06:00 Temperature Pulse Rate 75 76 75 Pulse Rate [ Anterior] Pulse Rate [ From Monitor] Respiratory 19 17 18 Rate Respiratory Rate [Anterior] Blood Pressure 92/42 106/28 90/44 O2 Sat by Pulse 100 100 100 Oximetry 04/21/22 04/21/22 04/21/22 06:15 06:17 06:30 Temperature Pulse Rate 76 75 Pulse Rate [ Anterior] Pulse Rate [ From Monitor] Respiratory 19 16 Rate Respiratory Rate [Anterior] Blood Pressure 91/53 83/53 O2 Sat by Pulse 100 98 100 Oximetry 04/21/22 04/21/22 04/21/22 06:45 07:00 07:15 Temperature Pulse Rate 75 74 75 Pulse Rate [ Anterior] Pulse Rate [ From Monitor] Respiratory 11 L 19 20 Rate Respiratory Rate [Anterior] Blood Pressure 84/54 93/59 95/52 O2 Sat by Pulse 100 100 100 Oximetry 04/21/22 04/21/22 04/21/22 07:31 07:32 07:33 Temperature Pulse Rate 74 Pulse Rate [ 76 Anterior] Pulse Rate [ From Monitor] Respiratory 18 Rate Respiratory 16 Rate [Anterior] Blood Pressure 99/42 O2 Sat by Pulse 100 100 Oximetry 04/21/22 04/21/22 04/21/22 07:37 07:45 08:00 Temperature Pulse Rate 74 Pulse Rate [ Anterior] Pulse Rate [ 76 From Monitor] Respiratory 22 22 Rate Respiratory Rate [Anterior] Blood Pressure 94/53 O2 Sat by Pulse 100 100 100 Oximetry 04/21/22 04/21/22 04/21/22 08:01 08:15 08:30 Temperature Pulse Rate 76 75 75 Pulse Rate [ Anterior] Pulse Rate [ From Monitor] Respiratory 22 18 20 Rate Respiratory Rate [Anterior] Blood Pressure 92/49 88/56 96/50 O2 Sat by Pulse 100 100 100 Oximetry 04/21/22 04/21/22 04/21/22 08:45 09:00 09:15 Temperature Pulse Rate 76 76 76 Pulse Rate [ Anterior] Pulse Rate [ From Monitor] Respiratory 16 14 17 Rate Respiratory Rate [Anterior] Blood Pressure 96/50 95/48 99/53 O2 Sat by Pulse 100 99 100 Oximetry 04/21/22 04/21/22 09:30 09:45 Temperature Pulse Rate 71 70 Pulse Rate [ Anterior] Pulse Rate [ From Monitor] Respiratory 18 17 Rate Respiratory Rate [Anterior] Blood Pressure 93/46 95/49 O2 Sat by Pulse 100 100 Oximetry Constitutional: no acute distress Eyes: non-icteric ENT: oropharynx moist Neck: supple, no lymphadenopathy, no JVD Effort: mildly labored Ascultation: Bilateral: clear, diminished breath sounds Percussion: Bilateral: not dull Cardiovascular: regular rate and rhythm Gastrointestinal: normoactive bowel sounds, soft, non-tender, non-distended Integumentary: normal Extremities: no cyanosis, no edema, pulses normal, no ischemia or petechiae Neurologic: non-focal exam (grossly), pupils equal and round, CN II-XII normal, motor strength normal and Psychiatric: mood appropriate, affect normal CBC and BMP: 04/24/22 04:00 04/24/22 04:00 ABG, PT/INR, D-dimer: PT/INR, D-dimer PT 17.9 Sec. (12.2-14.9) H 04/19/22 19:40 INR 1.28 (0.87-1.13) H 04/19/22 19:40 Abnormal lab findings: Abnormal Labs 04/19/22 04/19/22 04/19/22 04:53 04:53 04:53 WBC RBC 3.06 L Hgb 8.6 L Hct 28.0 L RDW 16.3 H [place] % (Auto) 11.3 H Lymph # (Auto) PT INR APTT Heparin Anti-Xa Level Sodium Potassium 5.1 H Carbon Dioxide 21 L BUN 94 H Creatinine 6.3 H Glucose Phosphorus Magnesium Troponin T 0.415 H* Albumin 2.7 L Free T4 0.28 L 04/19/22 04/19/22 04/20/22 19:40 19:40 05:30 WBC 4.1 L RBC 2.97 L Hgb 8.5 L 8.2 L Hct 27.8 L 27.1 L RDW 17.0 H [place] % (Auto) 15.2 H Lymph # (Auto) 1.1 L PT 17.9 H INR 1.28 H APTT 199.1 H* Heparin Anti-Xa Level Sodium Potassium Carbon Dioxide BUN Creatinine Glucose Phosphorus Magnesium Troponin T Albumin Free T4 04/20/22 04/20/22 04/21/22 05:30 18:23 00:29 WBC RBC Hgb Hct RDW [place] % (Auto) Lymph # (Auto) PT INR APTT Heparin Anti-Xa Level 0.17 L Sodium Potassium Carbon Dioxide 21 L BUN 95 H Creatinine 6.6 H Glucose 139 H Phosphorus Magnesium 2.60 H Troponin T Albumin 2.4 L Free T4 04/21/22 04/21/22 04:00 04:00 WBC RBC 2.74 L Hgb 7.7 L Hct 24.7 L RDW 16.6 H [place] % (Auto) Lymph # (Auto) PT INR APTT Heparin Anti-Xa Level Sodium 133 L Potassium Carbon Dioxide 20 L BUN 89 H Creatinine 6.6 H Glucose 131 H Phosphorus 6.40 H Magnesium 2.50 H Troponin T Albumin Free T4 Allied health notes reviewed: nursing
[2022-04-21] MEDS: CLOPIDOGREL 75 MG TAB PO SCH (12:04)
[2022-04-21] MEDS: LORazepam 1 MG TAB PO SCH (12:05)
--- NOTE | 2022-04-21 12:44 | Progress Note ---
Assessment and Plan Impression: * End stage renal disease * AMS * SVT s/p cardioversion * SIRS * NSTEMI * Hypotension * Anemia secondary to ESRD * Secondary hyperparathyroidism Plan: * Will continue hemodialysis schedule if hemodynamically stable, she is hypotensive and today, but improved, attempt hd, no uf * Dose medications for renal function * cards notes reviewed * added midodrine, cards following * keep MAP>65, vasopressors prn * Avoid potential nephrotoxins * Epogen TIW prn * Renal/HD diet Subjective Date of service: 04/28/22 Principal diagnosis: AHRF; Shock; AMS; SVT; NSTEMI; ESRD; Protein calorie malnutrition Interval history: resting in bed events noted labs and chart reviewed Objective - Exam Narrative Exam: General: No acute distress Head: Atraumatic Eyes: normal appearance ENT: Dry mucous Neck: Normal appearance Chest: Clear to auscultation bilaterally CV: Regular rate and rhythm, right arm dialysis access Abdomen: Soft, normal bowel sounds, nontender, nondistended, no rebound or guard ing Extremity: Normal inspection, full range of motion Neuro: Lethargic, answer some questions. Oriented to self and place but not to year. Mild tremor noted to left upper and lower extremity with movement. 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 Equal foot dorsiflexion. - Vital Signs Vital signs: Vital Signs - 12hr 04/21/22 04/21/22 04/21/22 00:45 01:00 01:15 Temperature Pulse Rate 132 H 128 H 126 H Pulse Rate [ Anterior] Pulse Rate [ From Monitor] Respiratory 23 21 20 Rate Respiratory Rate [Anterior] Blood Pressure 97/58 91/56 92/63 O2 Sat by Pulse 99 100 100 Oximetry 04/21/22 04/21/22 04/21/22 01:31 01:45 02:01 Temperature Pulse Rate 132 H 133 H 149 H Pulse Rate [ Anterior] Pulse Rate [ From Monitor] Respiratory 21 27 H 14 Rate Respiratory Rate [Anterior] Blood Pressure 95/65 95/65 98/52 O2 Sat by Pulse 100 100 98 Oximetry 04/21/22 04/21/22 04/21/22 02:15 02:31 02:45 Temperature Pulse Rate 130 H 124 H 134 H Pulse Rate [ Anterior] Pulse Rate [ From Monitor] Respiratory 21 22 21 Rate Respiratory Rate [Anterior] Blood Pressure 103/54 103/61 104/69 O2 Sat by Pulse 100 100 100 Oximetry 04/21/22 04/21/22 04/21/22 03:00 03:15 03:27 Temperature 97.6 F Pulse Rate 128 H 130 H Pulse Rate [ Anterior] Pulse Rate [ From Monitor] Respiratory 19 26 H Rate Respiratory Rate [Anterior] Blood Pressure 107/64 98/57 O2 Sat by Pulse 100 100 Oximetry 04/21/22 04/21/22 04/21/22 03:30 03:45 04:00 Temperature Pulse Rate 80 76 82 Pulse Rate [ Anterior] Pulse Rate [ 80 From Monitor] Respiratory 23 24 24 Rate Respiratory Rate [Anterior] Blood Pressure 105/56 96/54 88/45 O2 Sat by Pulse 98 99 98 Oximetry 04/21/22 04/21/22 04/21/22 04:15 04:18 04:30 Temperature Pulse Rate 93 H 79 Pulse Rate [ 80 Anterior] Pulse Rate [ From Monitor] Respiratory 13 16 Rate Respiratory 19 Rate [Anterior] Blood Pressure 94/49 98/54 O2 Sat by Pulse 97 99 Oximetry 04/21/22 04/21/22 04/21/22 04:45 05:00 05:15 Temperature Pulse Rate 77 77 75 Pulse Rate [ Anterior] Pulse Rate [ From Monitor] Respiratory 21 15 14 Rate Respiratory Rate [Anterior] Blood Pressure 96/50 100/59 95/50 O2 Sat by Pulse 99 100 100 Oximetry 04/21/22 04/21/22 04/21/22 05:30 05:45 06:00 Temperature Pulse Rate 75 76 75 Pulse Rate [ Anterior] Pulse Rate [ From Monitor] Respiratory 19 17 18 Rate Respiratory Rate [Anterior] Blood Pressure 92/42 106/28 90/44 O2 Sat by Pulse 100 100 100 Oximetry 04/21/22 04/21/22 04/21/22 06:15 06:17 06:30 Temperature Pulse Rate 76 75 Pulse Rate [ Anterior] Pulse Rate [ From Monitor] Respiratory 19 16 Rate Respiratory Rate [Anterior] Blood Pressure 91/53 83/53 O2 Sat by Pulse 100 98 100 Oximetry 04/21/22 04/21/22 04/21/22 06:45 07:00 07:15 Temperature Pulse Rate 75 74 75 Pulse Rate [ Anterior] Pulse Rate [ From Monitor] Respiratory 11 L 19 20 Rate Respiratory Rate [Anterior] Blood Pressure 84/54 93/59 95/52 O2 Sat by Pulse 100 100 100 Oximetry 04/21/22 04/21/22 04/21/22 07:31 07:32 07:33 Temperature Pulse Rate 74 Pulse Rate [ 76 Anterior] Pulse Rate [ From Monitor] Respiratory 18 Rate Respiratory 16 Rate [Anterior] Blood Pressure 99/42 O2 Sat by Pulse 100 100 Oximetry 04/21/22 04/21/22 04/21/22 07:37 07:45 08:00 Temperature Pulse Rate 74 Pulse Rate [ Anterior] Pulse Rate [ 76 From Monitor] Respiratory 22 22 Rate Respiratory Rate [Anterior] Blood Pressure 94/53 O2 Sat by Pulse 100 100 100 Oximetry 04/21/22 04/21/22 04/21/22 08:01 08:15 08:30 Temperature Pulse Rate 76 75 75 Pulse Rate [ Anterior] Pulse Rate [ From Monitor] Respiratory 22 18 20 Rate Respiratory Rate [Anterior] Blood Pressure 92/49 88/56 96/50 O2 Sat by Pulse 100 100 100 Oximetry 04/21/22 04/21/22 04/21/22 08:45 09:00 09:15 Temperature Pulse Rate 76 76 76 Pulse Rate [ Anterior] Pulse Rate [ From Monitor] Respiratory 16 14 17 Rate Respiratory Rate [Anterior] Blood Pressure 96/50 95/48 99/53 O2 Sat by Pulse 100 99 100 Oximetry 04/21/22 04/21/22 04/21/22 09:30 09:45 10:00 Temperature Pulse Rate 71 70 70 Pulse Rate [ Anterior] Pulse Rate [ From Monitor] Respiratory 18 17 20 Rate Respiratory Rate [Anterior] Blood Pressure 93/46 95/49 103/54 O2 Sat by Pulse 100 100 100 Oximetry 04/21/22 04/21/22 04/21/22 10:15 10:30 10:45 Temperature Pulse Rate 72 73 73 Pulse Rate [ Anterior] Pulse Rate [ From Monitor] Respiratory 19 17 15 Rate Respiratory Rate [Anterior] Blood Pressure 93/44 87/45 79/42 O2 Sat by Pulse 100 100 100 Oximetry 04/21/22 04/21/22 04/21/22 11:00 11:15 11:30 Temperature Pulse Rate 69 68 68 Pulse Rate [ Anterior] Pulse Rate [ From Monitor] Respiratory 16 17 17 Rate Respiratory Rate [Anterior] Blood Pressure 84/45 89/47 89/47 O2 Sat by Pulse 100 100 100 Oximetry 04/21/22 04/21/22 11:45 12:00 Temperature Pulse Rate 67 68 Pulse Rate [ Anterior] Pulse Rate [ From Monitor] Respiratory 17 13 Rate Respiratory Rate [Anterior] Blood Pressure 93/45 95/47 O2 Sat by Pulse 100 100 Oximetry - Lab 04/21/22 04:00 04/21/22 04:00 Most recent lab results Calcium 9.1 mg/dL (8.4-10.2) 04/21/22 04:00 Phosphorus 6.40 mg/dL (2.5-4.5) H 04/21/22 04:00 Magnesium 2.50 mg/dL (1.7-2.3) H 04/21/22 04:00 Medications & Allergies - Medications Allergies/Adverse Reactions: Allergies buspirone [From BuSpar] Allergy (Verified 04/18/22 12:22) Unknown Penicillins Allergy (Verified 04/18/22 12:22) Rash corn Adverse Reaction (Verified 04/18/22 12:22) Unknown Home Medications: Home Medications Medication Instructions Recorded Confirmed Last Taken Type Sevelamer Carbonate [Renvela] 0.8 gram PO TIDWM 09/02/20 02/02/22 05/31/21 History HYDROcodone/APAP 5-325 [Pegram 1 each PO Q4HR PRN #30 tablet 05/18/21 02/02/22 U nknown Rx 5-325 mg TAB] ALBUTEROL NEB's [Proventil 0.083% 2.5 mg IH Q3HRT PRN #1 nebu 03/03/22 Unknown Rx NEBS] Clopidogrel [Plavix] 75 mg PO QDAY #90 tablet 03/03/22 Unknown Rx Divalproex [Sarina Serrano] 750 mg PO BID #60 tablet 03/03/22 Unknown Rx LORazepam [Ativan] 1 mg PO DAILY #30 tab 03/03/22 Unknown Rx Memantine Xr [Namenda Xr] 5 mg PO DAILY #30 cap 03/03/22 Unknown Rx Midodrine [Proamatine] 10 mg PO TID #90 tab 03/03/22 Unknown Rx Pantoprazole [Protonix TAB] 40 mg PO DAILY #30 tab 03/03/22 Unknown Rx QUEtiapine [SEROquel] 400 mg PO BID #60 tab 03/03/22 Unknown Rx risperiDONE [RisperDAL] 0.5 mg PO BID #60 tab 03/03/22 Unknown Rx Active Medications: Generic Name Dose Route Start Last Admin Trade Name Freq PRN Reason Stop Dose Admin Acetaminophen 650 mg 04/19/22 09:55 Acetaminophen 325 Mg Tab PO Q6H PRN Pain MILD(1-3)/Fever >100.5/DRAKE Albuterol 2.5 mg 04/21/22 08:30 Albuterol 2.5 Mg/3 Ml Nebu IH Q3HRT PRN Shortness Of Breath Albuterol/Ipratropium 1 ampul 04/21/22 14:00 Ipratropium/Albuterol Sulfate 3 Ml Ampul.Neb IH TIDRT [facility] Clopidogrel Bisulfate 75 mg 04/19/22 12:00 04/21/22 12:04 Clopidogrel 75 Mg Tab PO Not Given QDAY [facility] Divalproex Sodium 750 mg 04/20/22 22:00 04/21/22 12:[address] 250 Mg Tab PO Not Given BID [facility] NORepinephrine/NS 8 MG-250 ML 8 mg in 250 mls @ 3.75 mls/hr 04/19/22 09:00 04/21/22 12:13 Norepinephrine/Ns 8 Mg-250 Ml (Double Conc) IV 6 mcg/min TITRATE [facility] 11.25 mls/hr Titration Protocol 2 MCG/MIN Heparin Sodium/Sodium Chloride 25,000 unit in 500 mls @ 15 mls/hr 04/19/22 18:00 04/21/22 03:11 Heparin/ 0.45% Nacl-25,000 Unit/500 Ml IV 750 units/hr TITR [facility] 15 mls/hr Administration Protocol 750 UNITS/HR Lorazepam 1 mg 04/19/22 12:00 04/21/22 12:05 Lorazepam 1 Mg Tab PO Not Given DAILY [facility] Metoclopramide HCl 5 mg 04/19/22 09:55 Metoclopramide 10 Mg/2 Ml Inj IV Q6H PRN Nausea And Vomiting Midodrine 15 mg 04/20/22 13:00 04/21/22 08:52 Midodrine 5 Mg Tab PO Not Given 0800,1300,1800 [facility] Miscellaneous Medication 5 mg 04/19/22 10:00 Memantine Xr PO DAILY [facility] Morphine Sulfate 2 mg 04/19/22 09:55 04/19/22 14:30 Morphine 2 Mg/1 Ml Inj IV 2 mg Q4H PRN Administration Pain, Moderate (4-6) Naloxone HCl 0.1 mg 04/19/22 09:55 Naloxone 0.4 Mg/1 Ml Inj IV Q2MIN PRN Res Rate </= 8 or 02 SAT < 92% Pantoprazole Sodium 40 mg 04/19/22 12:00 04/21/22 07:51 Pantoprazole 40 Mg Tab PO Not Given QDAC [facility] Quetiapine Fumarate 400 mg 04/19/22 12:00 04/21/22 12:04 Quetiapine 200 Mg Tab PO Not Given BID [facility] Risperidone 0.5 mg 04/19/22 12:00 04/21/22 12:04 Risperidone 1 Mg Tab PO Not Given BID [facility] Senna 8.6 mg 04/19/22 12:00 04/21/22 12:04 Sennosides 8.6 Mg Tab PO Not Given BID [facility] Sevelamer Carbonate 800 mg 04/19/22 12:00 04/21/22 08:52 Sevelamer Carbonate 800 Mg Tab PO Not Given TIDWM [facility] Sodium Chloride 10 ml 04/19/22 12:00 04/21/22 00:54 Sodium Chloride 0.9% 10 Ml Flush Syringe IV 10 ml BID [facility] Administration Sodium Chloride 10 ml 04/19/22 11:19 Sodium Chloride 0.9% 10 Ml Flush Syringe IV PRN PRN LINE FLUSH
[2022-04-21] MEDS ORDERED: EPOETIN ALFA-EPBX 10,000 UNIT/1 ML VIAL IV PRN (13:00)
[2022-04-21] MEDS ORDERED: ALBUMIN HUMAN 25% (25 GM/100 ML) INJ IV PRN (13:00)
[2022-04-21] MEDS ORDERED: SODIUM CHLORIDE 0.9% 100 ML IV PRN (13:02)
--- NOTE | 2022-04-21 13:43 | Progress Note ---
Assessment and Plan Patient is a 66-year-old female with a past medical history of end-stage renal disease on hemodialysis, hypertension, seizure disorder, bipolar disorder, schizophrenia, anxiety, limited mobility, and vascular dementia who presented to the ED from [facility] with report of altered mental status for several days AMS End-stage renal disease on hemodialysis-nephrology following SVT Hypotension -currently on pressors Schizophrenia Vascular dementia Bipolar disorder Hypotension Echo 01/31/2022-EF 60 to 65%. Doppler flow pattern suggests impaired LV relaxation. Right ventricle systolic function is normal trace aortic regurgitation. Trace mitral regurgitation. Plan: Telemetry reviewed converted to sinus rhythm overnight Will stop amiodarone drip at this time Will continue anticoagulation with heparin drip Troponins noted to be elevated but have downtrended Suspect NSTEMI type II in setting of end-stage renal disease with missed hemodialysis and following cardioversion Patient currently on Lipitor and Plavix Due to patient's mental status and comorbidities recommend conservative management No MARGOTH, ARB, beta-hernan due to hypotension and currently requiring pressors Patient currently in sinus rhythm and has history of hypotension. Suspect hypotension is not of cardiac origin Agree with midodrine Defer volume management to nephrology due to patient renal function Continue to monitor Patient seen in conjunction with Dr. Dumont who agrees with this plan of care 30 minutes of critical care time spent in care and coordination of patient - Patient Problems (1) Altered mental status Current Visit: Yes Status: Acute (2) Elevated troponin Current Visit: Yes Status: Acute (3) Uremic encephalopathy Current Visit: Yes Status: Acute (4) ESRD (end stage renal disease) on dialysis Current Visit: Yes Status: Chronic (5) Hypotension Current Visit: Yes Status: Chronic Qualifiers: (6) Schizophrenia Current Visit: Yes Status: Chronic Qualifiers: (7) Acute encephalopathy Current Visit: No Status: Acute (8) Bipolar disorder Current Visit: No Status: Acute (9) Cerebral atherosclerosis Current Visit: No Status: Acute Subjective Date of service: 04/21/22 Principal diagnosis: AHRF; Shock; AMS; SVT; NSTEMI; ESRD; Protein calorie malnutrition Interval history: Patient resting in bed in no acute distress. Patient remains with altered mental status Patient converted to normal sinus rhythm overnight rate currently sinus 70s Objective Vital Signs Temp Pulse Pulse Pulse Resp Resp BP 04/21/22 13:15 69 18 89/48 08/05/22 13:00 69 18 93/48 08/05 12:45 74 22 87/51 08/05 12:31 74 19 92/48 05 12:15 77 13 99/54 04/21/22 12:00 68 13 95/47 04/21/22 11:45 67 17 93/45 04/21/22 11:30 68 17 89/47 05 11:15 68 17 89/47 /05 11:00 69 16 84/45 05 10:45 73 15 79/42 08/0522 10:30 73 17 87/45 /05 10:15 72 19 93/44 05 10:00 70 20 103/54 05 09:45 70 17 95/49 04/21/22 09:30 71 18 93/46 04/21/22 09:15 76 17 99/53 04/21/22 09:00 76 14 95/48 04/21/22 08:45 76 16 96/50 05 08:30 75 20 96/50 05 08:15 75 18 88/56 04/21/22 08:01 76 22 92/49 04/21/22 08:00 76 22 04/21/22 07:45 74 22 94/53 04/21/22 07:37 04/21/22 07:33 76 16 04/21/22 07:32 04/21/22 07:31 74 18 99/42 05 07:15 75 20 95/52 05 07:00 74 19 93/59 05 06:45 75 11 L 84/54 05 06:30 75 16 83/53 05 06:17 05 06:15 76 19 91/53 05 06:00 75 18 90/44 080522 05:45 76 17 106/28 05 05:30 75 19 92/42 0522 05:15 75 14 95/50 05 05:00 77 15 100/59 080522 04:45 77 21 96/50 080522 04:30 79 16 98/54 05/22 04:18 80 19 08/05/22 04:15 93 H 13 94/49 04/21/22 04:00 82 80 24 88/45 04/21/22 03:45 76 24 96/54 04/21/22 03:30 80 23 105/56 04/21/22 03:27 97.6 F 04/21/22 03:15 130 H 26 H 98/57 04/21/22 03:00 128 H 19 107/64 04/21/22 02:45 134 H 21 104/69 04/21/22 02:31 124 H 22 103/61 04/21/22 02:15 130 H 21 103/54 04/21/22 02:01 149 H 14 98/52 04/21/22 01:45 133 H 27 H 95/65 04/21/22 01:31 132 H 21 95/65 04/21/22 01:15 126 H 20 92/63 04/21/22 01:00 128 H 21 91/56 04/21/22 00:45 132 H 23 97/58 04/21/22 00:31 148 H 13 96/52 04/21/22 00:15 133 H 20 96/52 04/21/22 00:00 142 H 142 H 20 87/57 04/20/22 23:45 141 H 21 93/58 04/20/22 23:42 98.4 F 04/20/22 23:30 140 H 23 103/64 04/20/22 23:15 135 H 24 102/66 04/20/22 23:01 131 H 36 H 96/55 04/20/22 22:45 138 H 24 107/42 04/20/22 22:30 139 H 24 95/65 04/20/22 22:15 132 H 25 H 98/48 04/20/22 22:00 137 H 20 107/42 04/20/22 21:45 134 H 24 97/49 04/20/22 21:30 141 H 22 96/58 04/20/22 21:15 143 H 23 93/57 04/20/22 21:00 147 H 24 99/63 04/20/22 20:45 137 H 22 90/66 04/20/22 20:36 04/20/22 20:31 150 H 12 100/65 04/20/22 20:15 147 H 16 101/70 04/20/22 20:00 137 H 121 H 24 101/70 04/20/22 19:45 148 H 22 93/60 04/20/22 19:36 98.8 F 04/20/22 19:31 135 H 24 93/61 04/20/22 19:15 144 H 28 H 95/59 04/20/22 19:01 149 H 26 H 88/48 04/20/22 18:45 146 H 26 H 94/46 04/20/22 18:41 149 H 27 H 94/46 04/20/22 18:30 145 H 20 94/46 04/20/22 18:15 135 H 24 89/56 04/20/22 18:00 150 H 25 H 101/75 04/20/22 17:45 149 H 25 H 91/43 04/20/22 17:31 143 H 23 83/54 04/20/22 17:16 132 H 26 H 93/59 04/20/22 17:00 142 H 28 H 93/58 04/20/22 16:45 136 H 25 H 88/56 04/20/22 16:30 132 H 18 93/58 04/20/22 16:16 133 H 25 H 88/56 04/20/22 16:00 138 H 138 H 21 88/56 04/20/22 15:45 143 H 29 H 95/56 04/20/22 15:30 149 H 22 93/56 04/20/22 15:16 133 H 25 H 86/53 04/20/22 15:00 131 H 20 86/49 04/20/22 14:46 134 H 25 H 86/49 04/20/22 14:30 123 H 24 79/55 04/20/22 14:16 136 H 22 79/55 04/20/22 14:00 124 H 24 85/44 04/20/22 13:46 137 H 22 88/47 Pulse Ox 04/21/22 13:15 100 04/21/22 13:00 100 04/21/22 12:45 99 04/21/22 12:31 100 04/21/22 12:15 99 04/21/22 12:00 100 04/21/22 11:45 100 04/21/22 11:30 100 04/21/22 11:15 100 04/21/22 11:00 100 04/21/22 10:45 100 04/21/22 10:30 100 04/21/22 10:15 100 04/21/22 10:00 100 04/21/22 09:45 100 04/21/22 09:30 100 04/21/22 09:15 100 04/21/22 09:00 99 04/21/22 08:45 100 04/21/22 08:30 100 04/21/22 08:15 100 04/21/22 08:01 100 04/21/22 08:00 100 04/21/22 07:45 100 04/21/22 07:37 100 04/21/22 07:33 04/21/22 07:32 100 04/21/22 07:31 100 04/21/22 07:15 100 04/21/22 07:00 100 04/21/22 06:45 100 04/21/22 06:30 100 04/21/22 06:17 98 04/21/22 06:15 100 04/21/22 06:00 100 04/21/22 05:45 100 04/21/22 05:30 100 04/21/22 05:15 100 04/21/22 05:00 100 04/21/22 04:45 99 04/21/22 04:30 99 04/21/22 04:18 04/21/22 04:15 97 04/21/22 04:00 98 04/21/22 03:45 99 04/21/22 03:30 98 04/21/22 03:27 04/21/22 03:15 100 04/21/22 03:00 100 04/21/22 02:45 100 04/21/22 02:31 100 04/21/22 02:15 100 04/21/22 02:01 98 04/21/22 01:45 100 04/21/22 01:31 100 04/21/22 01:15 100 04/21/22 01:00 100 04/21/22 00:45 99 04/21/22 00:31 97 04/21/22 00:15 99 04/21/22 00:00 98 04/20/22 23:45 100 04/20/22 23:42 08 23:30 100 04/20/22 23:15 100 04/20/22 23:01 99 04/20/22 22:45 100 04/20/22 22:30 100 04/20/22 22:15 100 04/20/22 22:00 99 04/20/22 21:45 98 04/20/22 21:30 99 04/20/22 21:15 99 04/20/22 21:00 98 04/20/22 20:45 97 04/20/22 20:36 100 04/20/22 20:31 100 04/20/22 20:15 99 04/20/22 20:00 80 L 04/20/22 19:45 79 L 04/20/22 19:36 04/20/22 19:31 89 04/20/22 19:15 91 04/20/22 19:01 95 04/20/22 18:45 97 04/20/22 18:41 98 04/20/22 18:30 100 04/20/22 18:15 83 L 04/20/22 18:00 86 04/20/22 17:45 87 04/20/22 17:31 89 04/20/22 17:16 87 04/20/22 17:00 90 04/20/22 16:45 90 04/20/22 16:30 89 04/20/22 16:16 89 04/20/22 16:00 89 04/20/22 15:45 89 04/20/22 15:30 89 04/20/22 15:16 90 04/20/22 15:00 82 L 04/20/22 14:46 90 04/20/22 14:30 88 04/20/22 14:16 89 04/20/22 14:00 89 04/20/22 13:46 89 - Physical Examination General: No Apparent Distress HEENT: Positive: Mucus Membranes Dry Neck: Positive: trachea midline Cardiac: Positive: Reg Rate and Rhythm Lungs: Positive: Normal Breath Sounds Neuro: Positive: Other (unable to assess) Abdomen: Positive: Soft Skin: Negative: Rash, Suspicious Lesions, Ulceration Extremities: Present: upper extr. pulses, Cool - Labs and Meds CBC 04/21/22 Range/Units 04:00 WBC 5.1 (4.5-11.0) K/mm3 RBC 2.74 L (3.65-5.03) M/mm3 Hgb 7.7 L (10.1-14.3) gm/dl Hct 24.7 L (30.3-42.9) % Plt Count 334 (140-440) K/mm3 Comprehensive Metabolic Panel 04/21/22 Range/Units 04:00 Sodium 133 L (137-145) mmol/L Potassium 4.7 (3.6-5.0) mmol/L Chloride 98.5 (98-107) mmol/L Carbon Dioxide 20 L (22-30) mmol/L BUN 89 H (7-17) mg/dL Creatinine 6.6 H (0.6-1.2) mg/dL Glucose 131 H (65-100) mg/dL Calcium 9.1 (8.4-10.2) mg/dL - Imaging and Cardiology Echo: report reviewed - Telemetry EKG Rhythm: Sinus Rhythm - EKG Sinus rhythms and dysrhythmias: sinus tachycardia - Allied health notes Allied health notes reviewed: nursing
[2022-04-22] MEDS: NORepinephrine/NS 8 MG-250 ML 8 MG/250 ML INFUS..BTL IV SCH ×2 (03:24→20:24)
[2022-04-22 04:18] LABS: Calcium 9.1 mg/dL (8.4-10.2)
--- NOTE | 2022-04-22 07:22 | Progress Note ---
Assessment and Plan Patient is a 66-year-old female medical history of hypertension, GERD, seizure disorder, vascular dementia, ESRD on hemodialysis (TTS), osteoarthritis, bipolar disorder, schizophrenia, anxiety disorder, Liver disease and limited mobility currently a resident of [facility] and presented with altered mental status. Patient was initially seen here in the ED the day prior and was discharged but documentation on the chart as patient is currently with altered mental status and unable to provide information shows that the patient was refused by the facility stating that she had been combative and has missed several days of dialysis as a result of behavioral disturbance. On presentation patient was noted to be hypotensive more than normal and was noted with room air oxygen saturation in the 70s and unfortunately went into SVT in the 150s requiring cardiac shock being delivered under conscious sedation. Patient remains very lethargic and sedated although easily arousable unable to provide information. Review of her charts from prior shows that her systolic blood pressure runs in the 80s and she is on midodrine outpatient. She is however not on home oxygen. She is currently in the ED on pressors and again unfortunately unable to provide any information. She is oriented to self and place per documentation prior to defibrillation. During one of her last hospitalization she was recommended to have a cholecystectomy which does not appear that was done at the time. She does not endorse any abdominal pain at this time. During that last admission also she had acute hypoxic respiratory failure but was weaned down to room air prior to discharge Patients past surgical history Hysterectomy and right upper extrmity Fistula. According to the chart, no hstory of smoking, alcohol or drug abuse. Patient awake, weak. On room air and O2 saturation running 96%. No acute respiratory distress. Patient afebrile. No leukocytosis. Blood pressure 105/57 , Pulse 92 , respirations 12. Patient HGB 04/21/22 7.7. Continue Monitor HGB, If HGB drops below 7.0. Recommend blood transfusion. Chest xray 04/22/22 reported New moderate right and trace left pleural effusions with minimal streaky airspace disease in the right midlung. Recommend ultrasound of chest. Patient is on I/V Heparin, I/V Norepinephrine, Albuterol/atrovent aerosol treatments, Protonix. I spent critical care time of 40 minutes reviewing the chart, examine the patient, review chest xray, lab results, talking to the nursing staff and work up plan of treatment in this critically ill patient with multiple medical problems. - Patient Problems (1) Acute respiratory failure with hypoxia Current Visit: No Status: Acute Plan to address problem: Improved. Patient presently on room air. O2 saturation 96%. Albuterol/atrovent aerosol treatments q 6 hours. (2) Altered mental status Current Visit: Yes Status: Acute Plan to address problem: Likely from metabolic encephalopathy and senile dementia. Management as per primary care and neurology. (3) Uremic encephalopathy Current Visit: Yes Status: Acute Plan to address problem: Patient missed dialysis. Patient back on dialysis. (4) ESRD (end stage renal disease) on dialysis Current Visit: Yes Status: Chronic Plan to address problem: Patient is on dialysis. Management as per Nephrology. (5) Hypotension Current Visit: Yes Status: Chronic Qualifiers: Plan to address problem: Patient is on Nor epinephrine. (6) Bipolar disorder Current Visit: No Status: Acute Plan to address problem: Recommend to consult psychiatry. Management as per primary care and Psychiatry. (7) GERD (gastroesophageal reflux disease) Current Visit: No Status: Acute Plan to address problem: Patient is on Protonix. (8) Hypertension Current Visit: No Status: Acute Qualifiers: Plan to address problem: Management as per primary care. (9) Seizure disorder Current Visit: No Status: Chronic Plan to address problem: Management as per primary care and neurology. 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 (11) Pleural effusion Current Visit: No Status: Acute Plan to address problem: Chest xray reported bilateral pleural effusions, Moderate on the right, small effusion on the left. Obtaining ultrasound of chest. Subjective Date of service: 04/22/22 Principal diagnosis: AHRF; Shock; AMS; SVT; NSTEMI; ESRD; Protein calorie malnutrition Interval history: Patient is a 66-year-old female medical history of hypertension, GERD, seizure disorder, vascular dementia, ESRD on hemodialysis (TTS), osteoarthritis, bipolar disorder, schizophrenia, anxiety disorder, Liver disease and limited mobility currently a resident of [facility] and presented with altered mental status. Patient was initially seen here in the ED the day prior and was discharged but documentation on the chart as patient is currently with altered mental status and unable to provide information shows that the patient was refused by the facility stating that she had been combative and has missed several days of dialysis as a result of behavioral disturbance. On presentation patient was noted to be hypotensive more than normal and was noted with room air oxygen saturation in the 70s and unfortunately went into SVT in the 150s requiring cardiac shock being delivered under conscious sedation. Patient remains very lethargic and sedated although easily arousable unable to provide information. Review of her charts from prior shows that her systolic blood pressure runs in the 80s and she is on midodrine outpatient. She is however not on home oxygen. She is currently in the ED on pressors and again unfortunately unable to provide any information. She is oriented to self and place per documentation prior to defibrillation. During one of her last hospitalization she was recommended to have a cholecystectomy which does not appear that was done at the time. She does not endorse any abdominal pain at this time. During that last admission also she had acute hypoxic respiratory failure but was weaned down to room air prior to discharge Patients past surgical history Hysterectomy and right upper extrmity Fistula. According to the chart, no hstory of smoking, alcohol or drug abuse. Patient awake, weak. On room air and O2 saturation running 96%. No acute respiratory distress. Patient afebrile. No leukocytosis. Blood pressure 105/57 , Pulse 92 , respirations 12. Patient HGB 04/21/22 7.7. Continue Monitor HGB, If HGB drops below 7.0. Recommend blood transfusion. Chest xray 04/22/22 reported New moderate right and trace left pleural effusions with minimal streaky airspace disease in the right midlung. Recommend ultrasound of chest. Patient is on I/V Heparin, I/V Norepinephrine, Albuterol/atrovent aerosol treatments, Protonix Objective Vital Signs - 12hr 04/21/22 04/21/22 04/21/22 19:30 19:45 20:00 Temperature 98.2 F Pulse Rate 85 66 Pulse Rate [ 78 Anterior] Pulse Rate [ 88 From Monitor] Respiratory 17 20 18 Rate Respiratory 16 Rate [Anterior] Blood Pressure 118/52 110/42 O2 Sat by Pulse 99 98 100 Oximetry 04/21/22 04/21/22 04/21/22 20:01 20:15 20:31 Temperature Pulse Rate 64 65 67 Pulse Rate [ Anterior] Pulse Rate [ From Monitor] Respiratory 18 16 13 Rate Respiratory Rate [Anterior] Blood Pressure 102/36 103/44 96/42 O2 Sat by Pulse 100 100 99 Oximetry 04/21/22 04/21/22 04/21/22 20:37 20:45 21:00 Temperature Pulse Rate 84 80 Pulse Rate [ Anterior] Pulse Rate [ From Monitor] Respiratory 11 L 14 Rate Respiratory Rate [Anterior] Blood Pressure 96/42 103/46 O2 Sat by Pulse 100 100 99 Oximetry 04/21/22 04/21/22 04/21/22 21:11 21:15 21:30 Temperature Pulse Rate 77 72 68 Pulse Rate [ Anterior] Pulse Rate [ From Monitor] Respiratory 15 16 17 Rate Respiratory Rate [Anterior] Blood Pressure 96/42 94/47 103/40 O2 Sat by Pulse 99 98 99 Oximetry 04/21/22 04/21/22 04/21/22 21:45 22:00 22:01 Temperature Pulse Rate 68 88 77 Pulse Rate [ Anterior] Pulse Rate [ From Monitor] Respiratory 18 16 Rate Respiratory Rate [Anterior] Blood Pressure 113/47 102/43 O2 Sat by Pulse 99 100 Oximetry 04/21/22 04/21/22 04/21/22 22:15 22:30 22:45 Temperature Pulse Rate 70 69 68 Pulse Rate [ Anterior] Pulse Rate [ From Monitor] Respiratory 15 15 17 Rate Respiratory Rate [Anterior] Blood Pressure 105/48 102/42 100/45 O2 Sat by Pulse 100 99 100 Oximetry 04/21/22 04/21/22 04/21/22 23:00 23:15 23:30 Temperature Pulse Rate 67 68 85 Pulse Rate [ Anterior] Pulse Rate [ From Monitor] Respiratory 14 18 12 Rate Respiratory Rate [Anterior] Blood Pressure 102/45 98/41 103/44 O2 Sat by Pulse 99 100 99 Oximetry 04/21/22 04/22/22 04/22/22 23:45 00:00 00:15 Temperature 98.9 F Pulse Rate 100 H 89 94 H Pulse Rate [ Anterior] Pulse Rate [ 89 From Monitor] Respiratory 11 L 13 13 Rate Respiratory Rate [Anterior] Blood Pressure 101/36 94/34 100/44 O2 Sat by Pulse 97 98 99 Oximetry 04/22/22 04/22/22 04/22/22 00:30 00:45 01:00 Temperature Pulse Rate 102 H 89 88 Pulse Rate [ Anterior] Pulse Rate [ From Monitor] Respiratory 19 14 12 Rate Respiratory Rate [Anterior] Blood Pressure 89/52 96/49 98/50 O2 Sat by Pulse 98 100 97 Oximetry 04/22/22 04/22/22 04/22/22 01:15 01:30 01:45 Temperature Pulse Rate 83 81 78 Pulse Rate [ Anterior] Pulse Rate [ From Monitor] Respiratory 16 16 16 Rate Respiratory Rate [Anterior] Blood Pressure 105/46 88/49 88/56 O2 Sat by Pulse 96 100 100 Oximetry 04/22/22 04/22/22 04/22/22 02:00 02:15 02:30 Temperature Pulse Rate 75 83 75 Pulse Rate [ Anterior] Pulse Rate [ From Monitor] Respiratory 16 17 17 Rate Respiratory Rate [Anterior] Blood Pressure 78/51 92/44 93/48 O2 Sat by Pulse 100 100 100 Oximetry 04/22/22 04/22/22 04/22/22 02:45 03:00 03:15 Temperature Pulse Rate 77 71 75 Pulse Rate [ Anterior] Pulse Rate [ From Monitor] Respiratory 15 20 16 Rate Respiratory Rate [Anterior] Blood Pressure 96/47 99/48 88/42 O2 Sat by Pulse 100 100 100 Oximetry 04/22/22 04/22/22 04/22/22 03:30 03:45 04:00 Temperature 96.1 F L Pulse Rate 73 72 72 Pulse Rate [ Anterior] Pulse Rate [ 89 From Monitor] Respiratory 17 16 16 Rate Respiratory Rate [Anterior] Blood Pressure 82/46 100/49 91/37 O2 Sat by Pulse 100 100 100 Oximetry 04/22/22 04/22/22 04/22/22 04:15 04:30 04:45 Temperature Pulse Rate 71 69 71 Pulse Rate [ Anterior] Pulse Rate [ From Monitor] Respiratory 17 16 18 Rate Respiratory Rate [Anterior] Blood Pressure 81/34 87/43 98/47 O2 Sat by Pulse 100 100 100 Oximetry 04/22/22 04/22/22 04/22/22 05:00 05:15 05:30 Temperature Pulse Rate 73 74 74 Pulse Rate [ Anterior] Pulse Rate [ From Monitor] Respiratory 17 16 18 Rate Respiratory Rate [Anterior] Blood Pressure 92/50 83/47 82/41 O2 Sat by Pulse 100 99 100 Oximetry 04/22/22 04/22/22 04/22/22 05:45 06:00 06:15 Temperature Pulse Rate 71 67 68 Pulse Rate [ Anterior] Pulse Rate [ From Monitor] Respiratory 15 16 16 Rate Respiratory Rate [Anterior] Blood Pressure 85/39 84/40 79/43 O2 Sat by Pulse 100 100 100 Oximetry 04/22/22 04/22/22 04/22/22 06:30 06:45 07:00 Temperature Pulse Rate 65 66 73 Pulse Rate [ Anterior] Pulse Rate [ From Monitor] Respiratory 16 22 21 Rate Respiratory Rate [Anterior] Blood Pressure 88/42 85/46 94/43 O2 Sat by Pulse 100 100 100 Oximetry Constitutional: no acute distress, alert, other (undernourished,) Eyes: non-icteric ENT: oropharynx moist Neck: supple, no lymphadenopathy, no JVD Effort: mildly labored Ascultation: Bilateral: diminished breath sounds Percussion: Bilateral: not dull Cardiovascular: regular rate and rhythm Gastrointestinal: normoactive bowel sounds, soft, non-tender, non-distended Integumentary: normal Extremities: no cyanosis, no edema, pulses normal, no ischemia or petechiae Neurologic: non-focal exam (grossly), pupils equal and round, CN II-XII normal, motor strength normal and Psychiatric: mood appropriate, affect normal CBC and BMP: 04/21/22 04:00 04/22/22 03:45 ABG, PT/INR, D-dimer: PT/INR, D-dimer PT 17.9 Sec. (12.2-14.9) H 04/19/22 19:40 INR 1.28 (0.87-1.13) H 04/19/22 19:40 Abnormal lab findings: Abnormal Labs 04/19/22 04/19/22 04/19/22 04:53 04:53 04:53 WBC RBC 3.06 L Hgb 8.6 L Hct 28.0 L RDW 16.3 H Rabun % (Auto) 11.3 H Lymph # (Auto) PT INR APTT Heparin Anti-Xa Level Sodium Potassium 5.1 H Carbon Dioxide 21 L BUN 94 H Creatinine 6.3 H Glucose Phosphorus Magnesium Troponin T 0.415 H* Albumin 2.7 L Free T4 0.28 L 04/19/22 04/19/22 04/20/22 19:40 19:40 05:30 WBC 4.1 L RBC 2.97 L Hgb 8.5 L 8.2 L Hct 27.8 L 27.1 L RDW 17.0 H Rabun % (Auto) 15.2 H Lymph # (Auto) 1.1 L PT 17.9 H INR 1.28 H APTT 199.1 H* Heparin Anti-Xa Level Sodium Potassium Carbon Dioxide BUN Creatinine Glucose Phosphorus Magnesium Troponin T Albumin Free T4 04/20/22 04/20/22 04/21/22 05:30 18:23 00:29 WBC RBC Hgb Hct RDW Rabun % (Auto) Lymph # (Auto) PT INR APTT Heparin Anti-Xa Level 0.17 L Sodium Potassium Carbon Dioxide 21 L BUN 95 H Creatinine 6.6 H Glucose 139 H Phosphorus Magnesium 2.60 H Troponin T Albumin 2.4 L Free T4 04/21/22 04/21/22 04/22/22 04:00 04:00 03:45 WBC RBC 2.74 L Hgb 7.7 L Hct 24.7 L RDW 16.6 H Rabun % (Auto) Lymph # (Auto) PT INR APTT Heparin Anti-Xa Level < 0.10 L Sodium 133 L Potassium Carbon Dioxide 20 L BUN 89 H Creatinine 6.6 H Glucose 131 H Phosphorus 6.40 H Magnesium 2.50 H Troponin T Albumin Free T4 04/22/22 03:45 WBC RBC Hgb Hct RDW Rabun % (Auto) Lymph # (Auto) PT INR APTT Heparin Anti-Xa Level Sodium 136 L Potassium Carbon Dioxide 18 L BUN 90 H Creatinine 6.3 H Glucose 121 H Phosphorus 6.50 H Magnesium Troponin T Albumin Free T4 Chest x-ray: report reviewed, image reviewed Additional Studies: CHEST 1 VIEW 04/22/22 INDICATION: possible aspiration. COMPARISON: 04/18/2022 FINDINGS: SUPPORT DEVICES: None. HEART: Within normal limits. LUNGS/PLEURA: New moderate right and trace left pleural effusions with minimal streaky airspace disease in the right midlung. ADDITIONAL FINDINGS: None. IMPRESSION: 1. Worsened exam as above. Allied health notes reviewed: nursing
[2022-04-22] MEDS: IPRATROPIUM/ALBUTEROL SULFATE 3 ML AMPUL.NEB IH SCH ×3 (08:03→20:57)
[2022-04-22] MEDS ORDERED: SODIUM CHLORIDE 0.9% 100 ML IV PRN (09:12)
[2022-04-22] MEDS: PANTOPRAZOLE 40 MG TAB PO SCH (09:29)
[2022-04-22] MEDS: MIDODRINE 5 MG TAB PO SCH ×3 (09:29→18:21)
--- NOTE | 2022-04-22 10:12 | Progress Note ---
Assessment and Plan If any recurrent tachyarrhythmias, may restart IV Amiodarone drip. Otherwise continue conservative cardiac management as previously outlined. Ischemic evaluation deferred due to mental status. Pt seen in conjunction with Dr. Mojica, who agrees with the assessment and plan of care. - Patient Problems (1) Altered mental status Current Visit: Yes Status: Acute (2) SVT (supraventricular tachycardia) Current Visit: Yes Status: Acute (3) Atrial fibrillation with RVR Current Visit: Yes Status: Acute (4) Type 2 myocardial infarction Current Visit: Yes Status: Acute (5) Hypotension Current Visit: Yes Status: Chronic Qualifiers: Qualified Code(s): I95.9 - Hypotension, unspecified (6) ESRD (end stage renal disease) on dialysis Current Visit: Yes Status: Chronic (7) Schizophrenia Current Visit: Yes Status: Chronic (8) Seizure disorder Current Visit: Yes Status: Chronic (9) Cerebral atherosclerosis Current Visit: Yes Status: Chronic (10) Vascular dementia Current Visit: Yes Status: Chronic Subjective Date of service: 04/22/22 Principal diagnosis: SVT Interval history: No events overnight. Remains in SR 70-80s with PACs on tele, mild sinus tach in the 100-110s range with agitation. Pt noted to be pocketing meds in mouth, refusing to swallow meds and refusing NGT. Attempts being made by RN at bedside. Cleared for pureed diet by Speech Therapy. Remains on Levo gtt @ 6mcg/min this AM (not consistently taking Midodrine). Objective Vital Signs Temp Pulse Pulse Pulse Resp Resp BP 04/22/22 10:01 120 H 15 126/76 04/22/22 09:45 104 H 18 98/57 04/22/22 09:30 94 H 15 102/60 04/22/22 09:15 85 18 88/65 04/22/22 09:00 72 18 84/42 04/22/22 08:45 75 17 88/45 04/22/22 08:30 78 22 95/51 04/22/22 08:15 76 22 104/52 04/22/22 08:04 04/22/22 08:03 90 16 04/22/22 08:00 77 18 96/51 04/22/22 07:45 90 10 L 95/47 04/22/22 07:38 90 18 04/22/22 07:30 91 H 21 90/48 04/22/22 07:28 97.7 F 04/22/22 07:15 68 18 97/44 04/22/22 07:00 73 21 94/43 04/22/22 06:45 66 22 85/46 04/22/22 06:30 65 16 88/42 04/22/22 06:15 68 16 79/43 04/22/22 06:00 67 16 84/40 04/22/22 05:45 71 15 85/39 04/22/22 05:30 74 18 82/41 04/22/22 05:15 74 16 83/47 04/22/22 05:00 73 17 92/50 04/22/22 04:45 71 18 98/47 04/22/22 04:30 69 16 87/43 04/22/22 04:15 71 17 81/34 04/22/22 04:00 96.1 F L 72 89 16 91/37 04/22/22 03:45 72 16 100/49 04/22/22 03:30 73 17 82/46 04/22/22 03:15 75 16 88/42 04/22/22 03:00 71 20 99/48 04/22/22 02:45 77 15 96/47 04/22/22 02:30 75 17 93/48 04/22/22 02:15 83 17 92/44 04/22/22 02:00 75 16 78/51 04/22/22 01:45 78 16 88/56 04/22/22 01:30 81 16 88/49 04/22/22 01:15 83 16 105/46 04/22/22 01:00 88 12 98/50 04/22/22 00:45 89 14 96/49 04/22/22 00:30 102 H 19 89/52 04/22/22 00:15 94 H 13 100/44 04/22/22 00:00 98.9 F 89 89 13 94/34 04/21/22 23:45 100 H 11 L 101/36 04/21/22 23:30 85 12 103/44 04/21/22 23:15 68 18 98/41 04/21/22 23:00 67 14 102/45 04/21/22 22:45 68 17 100/45 08/05/22 22:30 69 15 102/42 04/21/22 22:15 70 15 105/48 04/21/22 22:01 77 16 102/43 04/21/22 22:00 88 04/21/22 21:45 68 18 113/47 04/21/22 21:30 68 17 103/40 04/21/22 21:15 72 16 94/47 04/21/22 21:11 77 15 96/42 04/21/22 21:00 80 14 103/46 04/21/22 20:45 84 11 L 96/42 04/21/22 20:37 04/21/22 20:31 67 13 96/42 04/21/22 20:15 65 16 103/44 04/21/22 20:01 64 18 102/36 04/21/22 20:00 98.2 F 78 88 18 16 04/21/22 19:45 66 20 110/42 04/21/22 19:30 85 17 118/52 04/21/22 19:15 76 18 107/52 04/21/22 19:00 69 17 97/43 04/21/22 18:45 56 L 15 94/34 04/21/22 18:30 58 L 16 101/37 04/21/22 18:15 61 18 107/42 04/21/22 18:00 71 21 105/42 04/21/22 17:45 66 19 104/44 04/21/22 17:30 69 26 H 105/50 04/21/22 17:15 62 19 105/41 04/21/22 17:00 59 L 19 100/42 04/21/22 16:45 63 22 104/38 04/21/22 16:40 97.6 F 04/21/22 16:31 62 20 102/42 04/21/22 16:15 56 L 17 84/39 04/21/22 16:14 58 L 17 04/21/22 16:00 62 16 77/37 04/21/22 15:45 63 17 83/39 04/21/22 15:31 73 24 88/43 04/21/22 15:15 65 17 81/42 04/21/22 15:01 82 19 92/56 04/21/22 14:45 72 20 92/44 04/21/22 14:30 72 20 92/44 04/21/22 14:15 78 16 96/54 04/21/22 14:00 70 18 92/45 04/21/22 13:45 72 21 83/49 04/21/22 13:30 76 15 93/55 04/21/22 13:15 69 18 89/48 04/21/22 13:00 69 18 93/48 04/21/22 12:45 74 22 87/51 04/21/22 12:31 74 19 92/48 04/21/22 12:15 77 13 99/54 04/21/22 12:00 68 78 21 95/47 04/21/22 11:45 67 17 93/45 04/21/22 11:30 68 17 89/47 04/21/22 11:15 68 17 89/47 04/21/22 11:00 69 16 84/45 04/21/22 10:45 73 15 79/42 04/21/22 10:30 73 17 87/45 04/21/22 10:15 72 19 93/44 - Physical Examination General: No Apparent Distress HEENT: Positive: Normocephaly, Mucus Membranes Dry Neck: Positive: trachea midline. Negative: JVD/HJR Cardiac: Positive: Reg Rate and Rhythm Lungs: Positive: Normal Breath Sounds Neuro: Positive: Other (unable to assess) Abdomen: Positive: Soft Skin: Negative: Rash Extremities: Present: upper extr. pulses, Cool. Absent: edema - Labs and Meds Comprehensive Metabolic Panel 04/22/22 Range/Units 03:45 Sodium 136 L (137-145) mmol/L Potassium 4.4 (3.6-5.0) mmol/L Chloride 99.6 (98-107) mmol/L Carbon Dioxide 18 L (22-30) mmol/L BUN 90 H (7-17) mg/dL Creatinine 6.3 H (0.6-1.2) mg/dL Glucose 121 H (65-100) mg/dL Calcium 9.1 (8.4-10.2) mg/dL - Imaging and Cardiology EKG: report reviewed, image reviewed Echo: report reviewed (TTE 01/31/2022 - EF 60 to 65%. Doppler flow pattern suggests impaired LV relaxation. Right ventricle systolic function is normal. Trace aortic regurgitation. Trace mitral regurgitation.) - Telemetry EKG Rhythm: Sinus Rhythm - EKG Sinus rhythms and dysrhythmias: sinus tachycardia Repolarization changes or abnormalities: nonspecific abnormality, ST segment, and/or T wave - Allied health notes Allied health notes reviewed: nursing
--- NOTE | 2022-04-22 10:25 | XRay Report ---
CHEST 1 VIEW INDICATION: possible aspiration. COMPARISON: 04/18/2022 FINDINGS: SUPPORT DEVICES: None. HEART: Within normal limits. LUNGS/PLEURA: New moderate right and trace left pleural effusions with minimal streaky airspace disea se in the right midlung. ADDITIONAL FINDINGS: None. IMPRESSION: 1. Worsened exam as above. Signer Name: Dillon Mcfadden MD Signed: 04/22/2022 10:21 AM Workstation Name: [id number]
--- NOTE | 2022-04-22 10:43 | Progress Note ---
<COLLETTE HANNA - Last Filed: 04/22/22 19:04> Assessment and Plan Assessment and plan: This is a 66-year-old female with known past medical history of HTN, GERD, Seizure disorder, vascular dementia, ESRD on HD(TTS), OA, bipolar disorder, schizophrenia, anxiety disorder, and limited mobility admitted for Acute hypxic respiratory, hypotension, and SVT s/p X2 doses adenosine and cardioversion. Hospital Course to Date: 04/20: Patient went into Afib with RVR overnight, now on amiodarone gtt per yan cuello. Patient remains in AFib with RVR this am, HR in the 120-140s. BP marginal on Levophed gtt, currently not a candidate for BB. Midodrine increased to 15mg TID. 2D Echo pending. On heparin gtt per protocol. No HD today per nephro due to hypotension and tachycardia. 04/21: Converted to SR this am, remains on Amiodarone and heparin. Awaiting cardio final recommendations. Still on Levophed gtt for low BP, given patient history of chronic hypotension, Wean pressor for MAP goal of 60s. Patient is pocketing foods, currently NPO, awaiting speech eval and treat. 04/22: Patient passed speech swallow eval yesterday, however, patient is refusing PO intakes including meds. Will insert DHT for nutrition and meds administration. Patient remains in SR this am, amiodaron gtt transitioned to PO per cardio. Patient remains on heparin and Levophed gtt. Patient has not received PO midrodrine for 24hrs, resume meds once DHT is inserted. Keep femoral CVC for another 24hrs, anticipating will be able to wean off pressor once patient receive midodrine. Will reassess in the morning. No HD overnight, unable to cannulate AVF, plan to attempt again today per Nephro. Possible IR/Vascular surgery consult if unsuccessful again today. Assessement and Plan #Atrial Fibrillation with RVR #Supraventricular Tachycardia s/p Cardioversion #Acute on Chronic Hypotension #NSTEMI Type 2 - Presented with AMS, Tachycardia, and hypotension requiring pressors - was found in SVT in the ED s/p unsuccessful X2 doses of adenosine then cardioversion. - Patient initially converted to SR post cardioversion, then went into afib RVR in the ICU - Elevated troponin most likely related to ESRD - Cardiology consulted, appreciate recommendations - Converted to SR this am, HR in the 70-80s - Amio gtt transitioned to PO per Cardio - Per patient's son, patient is hypotensive at baseline - Patient remains on Levophed gtt, howere patient has been refusing PO meds, has not received PO midrodrine - Insert DHT and continue Midodrine TID - Continue blood pressure monitor per protocol - Titrate pressors for MAP goal of 60 - Not a candidate for MARGOTH, ARB, and BB due to hypotension - 2D Echo EF 60-65% - on Lipitor and Plavix - CCM also following #Acute Hypoxic Respiratory Failure - Presented with low SPO2, in the 70s on RA - probably related to above - Patient currently stable on 2L NC, no respiratory distress noted - Rate control per cardiology - Continue O2 supplementation and wean as tolerated - Continue SPO2 monitoring for SPO2 goal above 92% #Acute Metabolic Encephalopathy #H/o Vascular Dementia #Severe Anxiety #Bipolar Disorder & Schizophrenia - Presented with AMS, probably due to above - More awake and alert today, but confused - Resume home meds - PRN Analgesia for pain control - Maintenance of sleep-wake cycle - Mental Health/Psych on consult #End-Stage Renal Disease(ESRD) on HD - Nephrology on consult, appreciated recommendation - No HD yesterday per Nephro due to hypotension and tachycardia - Strict intake and output - Avoid nephrotoxic medications; Renally dose medications - Monitor and replace electrolytes as needed #Anemia of Chronic Disease - most likely secondary to ESRD - H&H stable, no s/s of any active bleeding - Epogen with HD per Nephro - Continue to trend H&H - Transfuse for hgb less than 7 #H/o Seizure Disorder - Resume home meds #Moderate Protein Caloric Malnutrition - Patient noted with poor dentition, diet switched to pureed - Encourage PO intake and nutrition supplement - Nutrition consulted #GI/DVT Prophylaxis - PPI- Protonix - Heparin gtt - SCDs to bilateral lower extremities while in bed #Advance Care Planning - Disease education data, care plan, diagnoses, and prognosis were discussed with patient's son at the bedside. Patient is a FULL code. Patient acknowledged understanding and agreed with current care plan. The high probability of a clinically significant, sudden or life threatening deterioration of the [multiple] system(s) required my full and direct attention, intervention and personal management. The aggregate critical care time was [60] minutes. This time is in addition to time spent performing reported procedures but includes the following: [x] Data Review and interpretation [x] Patient assessment and monitoring of vital signs [x] Documentation [x] Medication orders and management Disposition Plan: ICU Total Time Spent with Patient (Minutes): 60 History Interval history: Patient seen and examined at the bedside. More awake and alert this am, but confused. Pass speech swallow wval, however, patient is refusing PO intakes including meds. Patient remains on Heparin and Levophed gtts. Patient has not received PO midodrine for over 24hrs. HD aborted overnight, RN was unable to access AVF. Plan to attempt again today. Hospitalist Physical - Physical exam Narrative exam: General appearance: Present: no acute distress, well-nourished, obese - EENT Eyes: Present: PERRL ENT: hearing intact, poor dentition - Neck Neck: Present: normal ROM - Respiratory Respiratory effort: normal Respiratory: bilateral: diminished - Cardiovascular Rhythm: irregularly irregular Heart Sounds: Present: S1 & S2 - Extremities Extremities: no ischemia, pulses intact, pulses symmetrical Extremity abnormal: edema - Peripheral Assessment Generalized Edema Type: Non-pitting Edema Degree: 2+ Capillary Refill: < 3 seconds Skin Temperature: Warm Peripheral Pulses: within normal limits - Abdominal General gastrointestinal: soft, non-distended, normal bowel sounds - Integumentary Integumentary: Present: warm, dry - Psychiatric Psychiatric: appropriate mood/affect, cooperative, other (Awake and alert, but confused) - Neurologic Neurologic: moves all extremities, other (Awake and alert, but confused) - Allied Health Allied health notes reviewed: nursing, case management - Constitutional Vitals: Temp Pulse Resp BP Pulse Ox 97.7 F 120 H 15 126/76 93 04/22/22 07:28 04/22/22 10:01 04/22/22 10:01 04/22/22 10:01 04/22/22 10:01 HEART Score - HEART Score Troponin: Troponin T 0.415 ng/mL (0.00-0.029) H* 04/19/22 04:53 Results - Labs CBC & Chem 7: 04/21/22 04:00 04/22/22 03:45 Labs: Laboratory Last Values WBC 5.1 K/mm3 (4.5-11.0) 04/21/22 04:00 RBC 2.74 M/mm3 (3.65-5.03) L 04/21/22 04:00 Hgb 7.7 gm/dl (10.1-14.3) L 04/21/22 04:00 Hct 24.7 % (30.3-42.9) L 04/21/22 04:00 MCV 90 fl (79-97) 04/21/22 04:00 MCH 28 pg (28-32) 04/21/22 04:00 MCHC 31 % (30-34) 04/21/22 04:00 RDW 16.6 % (13.2-15.2) H 04/21/22 04:00 Plt Count 334 K/mm3 (140-440) 04/21/22 04:00 Lymph % (Auto) 26.7 % (13.4-35.0) 04/20/22 05:30 [place] % (Auto) 15.2 % (0.0-7.3) H 04/20/22 05:30 Eos % (Auto) 3.8 % (0.0-4.3) 04/20/22 05:30 Baso % (Auto) 1.2 % (0.0-1.8) 04/20/22 05:30 Lymph # (Auto) 1.1 K/mm3 (1.2-5.4) L 04/20/22 05:30 [place] # (Auto) 0.6 K/mm3 (0.0-0.8) 04/20/22 05:30 Eos # (Auto) 0.2 K/mm3 (0.0-0.4) 04/20/22 05:30 Baso # (Auto) 0.0 K/mm3 (0.0-0.1) 04/20/22 05:30 Seg Neutrophils % 53.1 % (40.0-70.0) 04/20/22 05:30 Seg Neutrophils # 2.2 K/mm3 (1.8-7.7) 04/20/22 05:30 PT 17.9 Sec. (12.2-14.9) H 04/19/22 19:40 INR 1.28 (0.87-1.13) H 04/19/22 19:40 APTT 199.1 Sec. (24.2-36.6) H* 04/19/22 19:40 Heparin Anti-Xa Level < 0.10 U.I./ml (0.3-0.7) L 04/22/22 03:45 Sodium 136 mmol/L (137-145) L 04/22/22 03:45 Potassium 4.4 mmol/L (3.6-5.0) 04/22/22 03:45 Chloride 99.6 mmol/L (98-107) 04/22/22 03:45 Carbon Dioxide 18 mmol/L (22-30) L 04/22/22 03:45 Anion Gap 23 mmol/L 04/22/22 03:45 BUN 90 mg/dL (7-17) H 04/22/22 03:45 Creatinine 6.3 mg/dL (0.6-1.2) H 04/22/22 03:45 Estimated GFR 8 ml/min 04/22/22 03:45 BUN/Creatinine Ratio 14 % 04/22/22 03:45 Glucose 121 mg/dL (65-100) H 04/22/22 03:45 Lactic Acid 1.60 mmol/L (0.7-2.0) 04/19/22 07:14 Calcium 9.1 mg/dL (8.4-10.2) 04/22/22 03:45 Phosphorus 6.50 mg/dL (2.5-4.5) H 04/22/22 03:45 Magnesium 2.30 mg/dL (1.7-2.3) 04/22/22 03:45 Total Bilirubin 0.30 mg/dL (0.1-1.2) 04/20/22 05:30 AST 11 units/L (5-40) 04/20/22 05:30 ALT 7 units/L (7-56) 04/20/22 05:30 Alkaline Phosphatase 101 units/L (35-129) 04/20/22 05:30 Ammonia 25.0 umol/L (25-60) 04/19/22 04:53 Troponin T 0.415 ng/mL (0.00-0.029) H* 04/19/22 04:53 Total Protein 6.4 g/dL (6.3-8.2) 04/20/22 05:30 Albumin 2.4 g/dL (3.9-5) L 04/20/22 05:30 Albumin/Globulin Ratio 0.6 % 04/20/22 05:30 TSH 1.700 mlU/mL (0.270-4.200) 04/19/22 04:53 Free T4 0.28 ng/dL (0.76-1.46) L 04/19/22 04:53 Hepatitis A IgM Ab Non-reactive (NonReactive) 04/19/22 04:53 Hep Bs Antigen Non-reactive (Negative) 04/19/22 04:53 Hep B Core IgM Ab Non-reactive (NonReactive) 04/19/22 04:53 Hepatitis C Antibody Non-reactive (NonReactive) 04/19/22 04:53 Microbiology: Microbiology 04/19/22 04:53 Peripheral/Venous Blood Culture - Preliminary NO GROWTH AFTER 72 HOURS 04/19/22 05:43 Peripheral/Venous Blood Culture - Preliminary NO GROWTH AFTER 72 HOURS Cleary/IV: Voiding Method Incontinent Active Medications - Current Medications Current Medications: Generic Name Dose Route Start Last Admin Trade Name Freq PRN Reason Stop Dose Admin Acetaminophen 650 mg 04/19/22 09:55 Acetaminophen 325 Mg Tab PO Q6H PRN Pain MILD(1-3)/Fever >100.5/DRAKE Albumin Human 25 gm 04/21/22 13:00 Albumin Human 25% (25 Gm/100 Ml) Inj IV BIANCA PRN Hypotension Albuterol 2.5 mg 04/21/22 08:30 Albuterol 2.5 Mg/3 Ml Nebu IH Q3HRT PRN Shortness Of Breath Albuterol/Ipratropium 1 ampul 04/21/22 14:00 04/22/22 08:03 Ipratropium/Albuterol Sulfate 3 Ml Ampul.Neb IH 1 ampul TIDRT CONNOR Administration Clopidogrel Bisulfate 75 mg 04/19/22 12:00 04/21/22 12:04 Clopidogrel 75 Mg Tab PO Not Given QDAY CONNOR Divalproex Sodium 750 mg 04/20/22 22:00 04/21/22 23:[address] 250 Mg Tab PO 750 mg BID CONNOR Administration Epoetin Lb-epbx 10,000 unit 04/21/22 13:00 Epoetin Lb-Epbx 10,000 Unit/1 Ml Vial IV BIANCA PRN hemodialysis NORepinephrine/NS 8 MG-250 ML 8 mg in 250 mls @ 3.75 mls/hr 04/19/22 09:00 04/22/22 09:52 Norepinephrine/Ns 8 Mg-250 Ml (Double Conc) IV 6 mcg/min TITRATE CONNOR 11.25 mls/hr Titration Protocol 2 MCG/MIN Heparin Sodium/Sodium Chloride 25,000 unit in 500 mls @ 15 mls/hr 04/19/22 18:00 04/22/22 06:33 Heparin/ 0.45% Nacl-25,000 Unit/500 Ml IV 850 units/hr TITR CONNOR 17 mls/hr Titration Protocol 750 UNITS/HR Sodium Chloride 100 mls @ 999 mls/hr 04/21/22 13:02 Nacl 0.9% IV BIANCA PRN Hypotension Sodium Chloride 100 mls @ 999 mls/hr 04/22/22 09:12 Nacl 0.9% IV BIANCA PRN Hypotension Lorazepam 1 mg 04/19/22 12:00 04/21/22 12:05 Lorazepam 1 Mg Tab PO Not Given DAILY [facility] Metoclopramide HCl 5 mg 04/19/22 09:55 Metoclopramide 10 Mg/2 Ml Inj IV Q6H PRN Nausea And Vomiting Midodrine 15 mg 04/20/22 13:00 04/22/22 09:29 Midodrine 5 Mg Tab PO 15 mg 0800,1300,1800 [facility] Administration Miscellaneous Medication 5 mg 04/19/22 10:00 Memantine Xr PO DAILY [facility] Morphine Sulfate 2 mg 04/19/22 09:55 04/19/22 14:30 Morphine 2 Mg/1 Ml Inj IV 2 mg Q4H PRN Administration Pain, Moderate (4-6) Naloxone HCl 0.1 mg 04/19/22 09:55 Naloxone 0.4 Mg/1 Ml Inj IV Q2MIN PRN Res Rate </= 8 or 02 SAT < 92% Pantoprazole Sodium 40 mg 04/19/22 12:00 04/22/22 09:29 Pantoprazole 40 Mg Tab PO 40 mg QDAC CONNOR Administration Quetiapine Fumarate 400 mg 04/19/22 12:00 04/21/22 23:30 Quetiapine 200 Mg Tab PO 400 mg BID CONNOR Administration Risperidone 0.5 mg 04/19/22 12:00 04/21/22 23:29 Risperidone 1 Mg Tab PO 0.5 mg BID CONNOR Administration Senna 8.6 mg 04/19/22 12:00 04/21/22 23:29 Sennosides 8.6 Mg Tab PO 8.6 mg BID CONNOR Administration Sevelamer Carbonate 800 mg 04/19/22 12:00 04/21/22 17:26 Sevelamer Carbonate 800 Mg Tab PO Not Given TIDWM CONNOR Sodium Chloride 10 ml 04/19/22 12:00 04/22/22 00:55 Sodium Chloride 0.9% 10 Ml Flush Syringe IV 10 ml BID CONNOR Administration Sodium Chloride 10 ml 04/19/22 11:19 Sodium Chloride 0.9% 10 Ml Flush Syringe IV PRN PRN LINE FLUSH Nutrition/Malnutrition Assess - Dietary Evaluation Nutrition/Malnutrition Findings: Nutrition Notes Start: 04/19/22 17:39 Freq: Status: Active Protocol: Document 04/19/22 17:39 MIRIAN (Rec: 04/19/22 17:59 MIRIAN [id number]) Nutrition Notes Need for Assessment generated from: MD Order Initial or Follow up Assessment Current Diagnosis CKD (stage V CKD),Hypertension ,Respiratory Failure, Malnutrition Other Pertinent Diagnosis Metabolic Encephalopathy, ESRD +HD, COVID-19, Anemia, NSTEMI II, ... Current Diet Renal Diet (since L 04/19). Labs/Tests 04/19: K 5.1, CO2 21, BUN 94, Crea 6.3. Pertinent Medications 04/19: Nutritionally unremarkable. Height 5 ft 2 in Weight 54.431 kg [place] Body Weight (kg) 50.00 BMI 21.9 Weight change and time frame None provided at admission. Weight Status Appropriate Subjective/Other Information RD consult for malnutrition assessment. No reports available on Pt's PO intake of meals at the time , will assess at F/U. Pt is on Nasal Cannula, O2 saturation @ 100%, according to Physical Assessment History notes. Pt has missing teeth, according to Physical Assessment History notes. Pt has limited mobility, according to History & Physical notes. Procedure on 04/19: R-FV triple-lumen HD Catheter placemnt, well tolerated, according to Procedure notes. Pt presents a healing sacral wound, intact and no further signs of concern for skin risk at the time, according to Physical Assessment History notes. Pt shows no signs of concern for malnutrition at the time with the information available on chert, will reassess at F/ U. Percent of energy/protein needs met: Prescribed Renal Diet provides for energy/protein needs (2, 072 Kcal/77 g) during LOS. Burn Absent Trauma Absent GI Symptoms None Food Allergy Yes Skin Integrity/Comment Healing Sacral wound, intact. #1 Nutrition Diagnosis No nutrition diagnosis at this time Is patient on ventilator? No Is Patient Ambulatory and/or Out of Bed No REE-([facility] Jeor-confined to bed) 1244.856 Calculation Used for Recommendations [facility] Additional Notes Protein: >1.2 g/Kg ABW; >65 g/ day. Fluids: 1 ml/Kcal, or as per MD. Nutrition Intervention Change Diet Order: Continue Renal Diet as tolerated. Follow-Up By: 04/26/22 Additional Comments Continue monitoring food tolerance, %PO intake of meals , and BM. <MELINDA BOWEN E - Last Filed: 04/23/22 07:13> Assessment and Plan Assessment and plan: I saw and evaluated the patient. I agree with the findings and the plan of care as documented in the Nurse Practitioner's~note, with the following corrections and additions. Hospitalist Physical - Constitutional Vitals: Temp Pulse Resp BP Pulse Ox 98.3 F 95 H 22 103/42 95 04/23/22 04:00 04/23/22 07:00 04/23/22 07:00 04/23/22 07:00 04/23/22 07:00 HEART Score - HEART Score Troponin: Troponin T 0.415 ng/mL (0.00-0.029) H* 04/19/22 04:53 Results - Labs CBC & Chem 7: 04/23/22 04:10 04/23/22 04:10 Labs: Laboratory Last Values WBC 5.1 K/mm3 (4.5-11.0) 04/21/22 04:00 RBC 2.74 M/mm3 (3.65-5.03) L 04/21/22 04:00 Hgb 7.3 gm/dl (10.1-14.3) L 04/23/22 04:10 Hct 23.3 % (30.3-42.9) L 04/23/22 04:10 MCV 90 fl (79-97) 04/21/22 04:00 MCH 28 pg (28-32) 04/21/22 04:00 MCHC 31 % (30-34) 04/21/22 04:00 RDW 16.6 % (13.2-15.2) H 04/21/22 04:00 Plt Count 291 K/mm3 (140-440) 04/23/22 04:10 Lymph % (Auto) 26.7 % (13.4-35.0) 04/20/22 05:30 [place] % (Auto) 15.2 % (0.0-7.3) H 04/20/22 05:30 Eos % (Auto) 3.8 % (0.0-4.3) 04/20/22 05:30 Baso % (Auto) 1.2 % (0.0-1.8) 04/20/22 05:30 Lymph # (Auto) 1.1 K/mm3 (1.2-5.4) L 04/20/22 05:30 [place] # (Auto) 0.6 K/mm3 (0.0-0.8) 04/20/22 05:30 Eos # (Auto) 0.2 K/mm3 (0.0-0.4) 04/20/22 05:30 Baso # (Auto) 0.0 K/mm3 (0.0-0.1) 04/20/22 05:30 Seg Neutrophils % 53.1 % (40.0-70.0) 04/20/22 05:30 Seg Neutrophils # 2.2 K/mm3 (1.8-7.7) 04/20/22 05:30 PT 17.9 Sec. (12.2-14.9) H 04/19/22 19:40 INR 1.28 (0.87-1.13) H 04/19/22 19:40 APTT 199.1 Sec. (24.2-36.6) H* 04/19/22 19:40 Heparin Anti-Xa Level 0.14 U.I./ml (0.3-0.7) L 04/23/22 02:17 Sodium 139 mmol/L (137-145) 04/23/22 04:10 Potassium 3.7 mmol/L (3.6-5.0) 04/23/22 04:10 Chloride 102.0 mmol/L (98-107) 04/23/22 04:10 Carbon Dioxide 23 mmol/L (22-30) 04/23/22 04:10 Anion Gap 18 mmol/L 04/23/22 04:10 BUN 36 mg/dL (7-17) H 04/23/22 04:10 Creatinine 3.4 mg/dL (0.6-1.2) H 04/23/22 04:10 Estimated GFR 16 ml/min 04/23/22 04:10 BUN/Creatinine Ratio 11 % 04/23/22 04:10 Glucose 131 mg/dL (65-100) H 04/23/22 04:10 POC Glucose 141 mg/dL (70-105) H 04/23/22 06:09 Lactic Acid 1.60 mmol/L (0.7-2.0) 04/19/22 07:14 Calcium 8.6 mg/dL (8.4-10.2) 04/23/22 04:10 Phosphorus 3.10 mg/dL (2.5-4.5) D 04/23/22 04:10 Magnesium 1.90 mg/dL (1.7-2.3) 04/23/22 04:10 Total Bilirubin 0.30 mg/dL (0.1-1.2) 04/20/22 05:30 AST 11 units/L (5-40) 04/20/22 05:30 ALT 7 units/L (7-56) 04/20/22 05:30 Alkaline Phosphatase 101 units/L (35-129) 04/20/22 05:30 Ammonia 25.0 umol/L (25-60) 04/19/22 04:53 Troponin T 0.415 ng/mL (0.00-0.029) H* 04/19/22 04:53 Total Protein 6.4 g/dL (6.3-8.2) 04/20/22 05:30 Albumin 2.4 g/dL (3.9-5) L 04/20/22 05:30 Albumin/Globulin Ratio 0.6 % 04/20/22 05:30 TSH 1.700 mlU/mL (0.270-4.200) 04/19/22 04:53 Free T4 0.28 ng/dL (0.76-1.46) L 04/19/22 04:53 Hepatitis A IgM Ab Non-reactive (NonReactive) 04/19/22 04:53 Hep Bs Antigen Non-reactive (Negative) 04/19/22 04:53 Hep B Core IgM Ab Non-reactive (NonReactive) 04/19/22 04:53 Hepatitis C Antibody Non-reactive (NonReactive) 04/19/22 04:53 Microbiology: Microbiology 04/19/22 04:53 Peripheral/Venous Blood Culture - Preliminary NO GROWTH AFTER 72 HOURS 04/19/22 05:43 Peripheral/Venous Blood Culture - Preliminary NO GROWTH AFTER 72 HOURS Cleary/IV: Voiding Method Incontinent Active Medications - Current Medications Current Medications: Generic Name Dose Route Start Last Admin Trade Name Freq PRN Reason Stop Dose Admin Acetaminophen 650 mg 04/22/22 20:12 Acetaminophen 325 Mg/10.15 Ml Oral Liqd Unit Dose PO Q6H PRN Pain MILD(1-3)/Fever >100.5/DRAKE Albumin Human 25 gm 04/21/22 13:00 04/22/22 16:31 Albumin Human 25% (25 Gm/100 Ml) Inj IV 25 gm BIANCA PRN Administration Hypotension Albuterol 2.5 mg 04/21/22 08:30 Albuterol 2.5 Mg/3 Ml Nebu IH Q3HRT PRN Shortness Of Breath Albuterol/Ipratropium 1 ampul 04/21/22 14:00 04/22/22 20:57 Ipratropium/Albuterol Sulfate 3 Ml Ampul.Neb IH Not Given TIDRT CONNOR Clopidogrel Bisulfate 75 mg 04/23/22 10:00 Clopidogrel 75 Mg Tab FEEDTUBE QDAY CONNOR Epoetin Lb-epbx 10,000 unit 04/21/22 13:00 04/22/22 18:57 Epoetin Lb-Epbx 10,000 Unit/1 Ml Vial IV 10,000 unit BIANCA PRN Administration hemodialysis NORepinephrine/NS 8 MG-250 ML 8 mg in 250 mls @ 3.75 mls/hr 04/19/22 09:00 04/23/22 05:20 Norepinephrine/Ns 8 Mg-250 Ml (Double Conc) IV 12 mcg/min TITRATE CONNOR 22.5 mls/hr Titration Protocol 2 MCG/MIN Heparin Sodium/Sodium Chloride 25,000 unit in 500 mls @ 15 mls/hr 04/19/22 18:00 04/23/22 02:42 Heparin/ 0.45% Nacl-25,000 Unit/500 Ml IV 850 units/hr TITR CONNOR 17 mls/hr Titration Protocol 750 UNITS/HR Sodium Chloride 100 mls @ 999 mls/hr 04/21/22 13:02 Nacl 0.9% IV BIANCA PRN Hypotension Sodium Chloride 100 mls @ 999 mls/hr 04/22/22 09:12 Nacl 0.9% IV BIANCA PRN Hypotension Lansoprazole 30 mg 04/23/22 10:00 Lansoprazole 30 Mg Solutab FEEDTUBE QDAY CONNOR Lorazepam 0.5 mg 04/22/22 19:07 Lorazepam 0.5 Mg Tab PO QDAY PRN Anxiety Metoclopramide HCl 5 mg 04/19/22 09:55 Metoclopramide 10 Mg/2 Ml Inj IV Q6H PRN Nausea And Vomiting Midodrine 15 mg 04/20/22 13:00 04/22/22 18:21 Midodrine 5 Mg Tab PO 15 mg 0800,1300,1800 CONNOR Administration Miscellaneous Medication 5 mg 04/19/22 10:00 Memantine Xr PO DAILY CONNOR Naloxone HCl 0.1 mg 04/19/22 09:55 Naloxone 0.4 Mg/1 Ml Inj IV Q2MIN PRN Res Rate </= 8 or 02 SAT < 92% Quetiapine Fumarate 200 mg 04/22/22 19:07 04/22/22 21:08 Quetiapine 200 Mg Tab PO 200 mg BID CONNOR Administration Risperidone 0.5 mg 04/19/22 12:00 04/22/22 21:08 Risperidone 1 Mg Tab PO 0.5 mg BID CONNOR Administration Senna 8.6 mg 04/22/22 22:00 04/22/22 21:08 Sennosides 8.6 Mg Tab FEEDTUBE 8.6 mg BID CONNOR Administration Sevelamer Carbonate 800 mg 04/19/22 12:00 04/22/22 17:25 Sevelamer Carbonate 800 Mg Tab PO Not Given TIDWM CONNOR Sodium Chloride 10 ml 04/19/22 12:00 04/22/22 21:09 Sodium Chloride 0.9% 10 Ml Flush Syringe IV 10 ml BID CONNOR Administration Sodium Chloride 10 ml 04/19/22 11:19 Sodium Chloride 0.9% 10 Ml Flush Syringe IV PRN PRN LINE FLUSH Valproic Acid 750 mg 04/22/22 22:00 04/22/22 21:08 Valproic Acid 250 Mg/5 Ml Oral Liqd FEEDTUBE 750 mg BID CONNOR Administration Nutrition/Malnutrition Assess - Dietary Evaluation Nutrition/Malnutrition Findings: Nutrition Notes Start: 04/19/22 17:39 Freq: Status: Active Protocol: Document 04/22/22 11:04 TW (Rec: 04/22/22 11:32 TW [id number]) Nutrition Notes Need for Assessment generated from: MD Order Initial or Follow up Reassessment Current Diagnosis CKD (stage V CKD),Hypertension ,Respiratory Failure Other Pertinent Diagnosis GERD, Vascula Dementia, Seizures, Hypotension Current Diet Renal Diet Labs/Tests BUN 90, Creatinine 6.3, Phosphorus 6.5 Pertinent Medications Levophed, Renvela Height 5 ft 2 in Weight 54.43 kg [place] Body Weight (kg) 50.00 BMI 21.9 Weight Status Appropriate Subjective/Other Information RD consult for TF. Pt pocketing food per Speech Therapist. Burn Absent Trauma Absent #1 Nutrition Diagnosis Inadequate oral intake Etiology altered mental status As Evidenced by Signs and Symptoms Pt. refusing and pocketing food Is patient on ventilator? No Is Patient Ambulatory and/or Out of Bed No REE-(Mccormick-St. Jeor-confined to bed) [phone] Calculation Used for Recommendations Mccormick-St Jeor Additional Notes Protein: 65 g/day (1.2g/kg) Fluid: 1-1.5 L/day Nutrition Intervention Change Diet Order: d/c renal diet Nutrition Support: Nepro @ 30 ml/hr with 130 ml free water flush q4h Kcal 1,296 Protein (gm) 58 Carbohydrates (gm) 116 Fat (gm) 58 Fluid (mL) 523 Fiber (gm) 9 Goal #1 TF tolerance Goal #2 TF to meet at least 75% nutrition needs Follow-Up By: 04/24/22 Additional Comments F/U new TF, pressor support
--- NOTE | 2022-04-22 11:02 | XRay Report ---
ABDOMEN 2 VIEW(S) INDICATION / CLINICAL INFORMATION: s/p dht. COMPARISON: Chest x-ray from earlier today FINDINGS: TUBES / LINES: Dobbhoff tube tip is in the proximal to mid stomach and should be advanced another 10 cm into the duodenum. Right femoral line is in place with tip overlying the SI joint. BOWEL GAS PATTERN: Moderate colonic stool burden may be seen with constipation. No obstruction. FREE AIR / EXTRALUMINAL GAS: None seen. ADDITIONAL FINDINGS: No significant additional findings. IMPRESSION: 1. Support devices as above. Signer Name: Dillon Mcfadden MD Signed: 04/22/2022 10:58 AM Workstation Name: [id number]
--- NOTE | 2022-04-22 11:45 | Progress Note ---
Assessment and Plan Impression: * End stage renal disease * AMS * SVT s/p cardioversion * SIRS * NSTEMI * Hypotension * Anemia secondary to ESRD * Secondary hyperparathyroidism Plan: * Will continue hemodialysis prn schedule if hemodynamically stable, attempt hd today no uf, unable to cannulate yesterday, may need IR/Vasc consultation * Dose medications for renal function * cards notes reviewed * added midodrine, cards following * keep MAP>65, vasopressors prn * Avoid potential nephrotoxins * Epogen TIW prn * Renal/HD diet Subjective Date of service: 04/22/22 Principal diagnosis: SVT Interval history: resting in bed events noted labs and chart reviewed Objective - Exam Narrative Exam: General: No acute distress Head: Atraumatic Eyes: normal appearance ENT: Dry mucous Neck: Normal appearance Chest: Clear to auscultation bilaterally CV: Regular rate and rhythm, right arm dialysis access Abdomen: Soft, normal bowel sounds, nontender, nondistended, no rebound or guarding Extremity: Normal inspection, full range of motion Neuro: Lethargic, answer some questions. Oriented to self and place but not to year. Mild tremor noted to left upper and lower extremity with movement. Limited left hand crusher tender with limited ability to flex fingers of left hand. 5/5 right hand crusher tender. Equal foot dorsiflexion. - Vital Signs Vital signs: Vital Signs - 12hr 04/21/22 04/22/22 04/22/22 23:45 00:00 00:15 Temperature 98.9 F Pulse Rate 100 H 89 94 H Pulse Rate [ Anterior] Pulse Rate [ 89 From Monitor] Respiratory 11 L 13 13 Rate Respiratory Rate [Anterior] Blood Pressure 101/36 94/34 100/44 O2 Sat by Pulse 97 98 99 Oximetry 04/22/22 04/22/22 04/22/22 00:30 00:45 01:00 Temperature Pulse Rate 102 H 89 88 Pulse Rate [ Anterior] Pulse Rate [ From Monitor] Respiratory 19 14 12 Rate Respiratory Rate [Anterior] Blood Pressure 89/52 96/49 98/50 O2 Sat by Pulse 98 100 97 Oximetry 04/22/22 04/22/22 04/22/22 01:15 01:30 01:45 Temperature Pulse Rate 83 81 78 Pulse Rate [ Anterior] Pulse Rate [ From Monitor] Respiratory 16 16 16 Rate Respiratory Rate [Anterior] Blood Pressure 105/46 88/49 88/56 O2 Sat by Pulse 96 100 100 Oximetry 04/22/22 04/22/22 04/22/22 02:00 02:15 02:30 Temperature Pulse Rate 75 83 75 Pulse Rate [ Anterior] Pulse Rate [ From Monitor] Respiratory 16 17 17 Rate Respiratory Rate [Anterior] Blood Pressure 78/51 92/44 93/48 O2 Sat by Pulse 100 100 100 Oximetry 04/22/22 04/22/22 04/22/22 02:45 03:00 03:15 Temperature Pulse Rate 77 71 75 Pulse Rate [ Anterior] Pulse Rate [ From Monitor] Respiratory 15 20 16 Rate Respiratory Rate [Anterior] Blood Pressure 96/47 99/48 88/42 O2 Sat by Pulse 100 100 100 Oximetry 04/22/22 04/22/22 04/22/22 03:30 03:45 04:00 Temperature 96.1 F L Pulse Rate 73 72 72 Pulse Rate [ Anterior] Pulse Rate [ 89 From Monitor] Respiratory 17 16 16 Rate Respiratory Rate [Anterior] Blood Pressure 82/46 100/49 91/37 O2 Sat by Pulse 100 100 100 Oximetry 04/22/22 04/22/22 04/22/22 04:15 04:30 04:45 Temperature Pulse Rate 71 69 71 Pulse Rate [ Anterior] Pulse Rate [ From Monitor] Respiratory 17 16 18 Rate Respiratory Rate [Anterior] Blood Pressure 81/34 87/43 98/47 O2 Sat by Pulse 100 100 100 Oximetry 04/22/22 04/22/22 04/22/22 05:00 05:15 05:30 Temperature Pulse Rate 73 74 74 Pulse Rate [ Anterior] Pulse Rate [ From Monitor] Respiratory 17 16 18 Rate Respiratory Rate [Anterior] Blood Pressure 92/50 83/47 82/41 O2 Sat by Pulse 100 99 100 Oximetry 04/22/22 04/22/22 04/22/22 05:45 06:00 06:15 Temperature Pulse Rate 71 67 68 Pulse Rate [ Anterior] Pulse Rate [ From Monitor] Respiratory 15 16 16 Rate Respiratory Rate [Anterior] Blood Pressure 85/39 84/40 79/43 O2 Sat by Pulse 100 100 100 Oximetry 04/22/22 04/22/22 04/22/22 06:30 06:45 07:00 Temperature Pulse Rate 65 66 73 Pulse Rate [ Anterior] Pulse Rate [ From Monitor] Respiratory 16 22 21 Rate Respiratory Rate [Anterior] Blood Pressure 88/42 85/46 94/43 O2 Sat by Pulse 100 100 100 Oximetry 04/22/22 04/22/22 04/22/22 07:15 07:28 07:30 Temperature 97.7 F Pulse Rate 68 91 H Pulse Rate [ Anterior] Pulse Rate [ From Monitor] Respiratory 18 21 Rate Respiratory Rate [Anterior] Blood Pressure 97/44 90/48 O2 Sat by Pulse 100 98 Oximetry 04/22/22 04/22/22 04/22/22 07:38 07:45 08:00 Temperature Pulse Rate 90 77 Pulse Rate [ Anterior] Pulse Rate [ 90 From Monitor] Respiratory 18 10 L 18 Rate Respiratory Rate [Anterior] Blood Pressure 95/47 96/51 O2 Sat by Pulse 98 98 98 Oximetry 04/22/22 04/22/22 04/22/22 08:03 08:04 08:15 Temperature Pulse Rate 76 Pulse Rate [ 90 Anterior] Pulse Rate [ From Monitor] Respiratory 22 Rate Respiratory 16 Rate [Anterior] Blood Pressure 104/52 O2 Sat by Pulse 100 99 Oximetry 04/22/22 04/22/22 04/22/22 08:30 08:45 09:00 Temperature Pulse Rate 78 75 72 Pulse Rate [ Anterior] Pulse Rate [ From Monitor] Respiratory 22 17 18 Rate Respiratory Rate [Anterior] Blood Pressure 95/51 88/45 84/42 O2 Sat by Pulse 96 95 95 Oximetry 04/22/22 04/22/22 04/22/22 09:15 09:30 09:45 Temperature Pulse Rate 85 94 H 104 H Pulse Rate [ Anterior] Pulse Rate [ From Monitor] Respiratory 18 15 18 Rate Respiratory Rate [Anterior] Blood Pressure 88/65 102/60 98/57 O2 Sat by Pulse 95 95 93 Oximetry 04/22/22 04/22/22 04/22/22 10:01 10:15 10:31 Temperature Pulse Rate 120 H 98 H 104 H Pulse Rate [ Anterior] Pulse Rate [ From Monitor] Respiratory 15 11 L 15 Rate Respiratory Rate [Anterior] Blood Pressure 126/76 105/56 114/62 O2 Sat by Pulse 93 94 93 Oximetry 04/22/22 04/22/22 04/22/22 10:45 11:00 11:15 Temperature Pulse Rate 96 H 92 H 113 H Pulse Rate [ Anterior] Pulse Rate [ From Monitor] Respiratory 12 12 16 Rate Respiratory Rate [Anterior] Blood Pressure 111/60 105/57 130/74 O2 Sat by Pulse 96 96 94 Oximetry 04/22/22 11:28 Temperature Pulse Rate 96 H Pulse Rate [ Anterior] Pulse Rate [ From Monitor] Respiratory Rate Respiratory Rate [Anterior] Blood Pressure O2 Sat by Pulse Oximetry - Lab 04/21/22 04:00 04/22/22 03:45 Most recent lab results Calcium 9.1 mg/dL (8.4-10.2) 04/22/22 03:45 Phosphorus 6.50 mg/dL (2.5-4.5) H 04/22/22 03:45 Magnesium 2.30 mg/dL (1.7-2.3) 04/22/22 03:45 Medications & Allergies - Medications Allergies/Adverse Reactions: Allergies buspirone [From BuSpar] Allergy (Verified 04/18/22 12:22) Unknown Penicillins Allergy (Verified 04/18/22 12:22) Rash corn Adverse Reaction (Verified 04/18/22 12:22) Unknown Home Medications: Home Medications Medication Instructions Recorded Confirmed Last Taken Type Sevelamer Carbonate [Renvela] 0.8 gram PO TIDWM 09/02/20 02/02/22 05/31/21 History HYDROcodone/APAP 5-325 [Nixon 1 each PO Q4HR PRN #30 tablet 05/18/21 02/02/22 Unknown Rx 5-325 mg TAB] ALBUTEROL NEB's [Proventil 0.083% 2.5 mg IH Q3HRT PRN #1 nebu 03/03/22 Unknown Rx NEBS] Clopidogrel [Plavix] 75 mg PO QDAY #90 tablet 03/03/22 Unknown Rx Divalproex [Sarina Serrano] 750 mg PO BID #60 tablet 03/03/22 Unknown Rx LORazepam [Ativan] 1 mg PO DAILY #30 tab 03/03/22 Unknown Rx Memantine Xr [Namenda Xr] 5 mg PO DAILY #30 cap 03/03/22 Unknown Rx Midodrine [Proamatine] 10 mg PO TID #90 tab 03/03/22 Unknown Rx Pantoprazole [Protonix TAB] 40 mg PO DAILY #30 tab 03/03/22 Unknown Rx QUEtiapine [SEROquel] 400 mg PO BID #60 tab 03/03/22 Unknown Rx risperiDONE [RisperDAL] 0.5 mg PO BID #60 tab 03/03/22 Unknown Rx Active Medications: Generic Name Dose Route Start Last Admin Trade Name Freq PRN Reason Stop Dose Admin Acetaminophen 650 mg 04/19/22 09:55 Acetaminophen 325 Mg Tab PO Q6H PRN Pain MILD(1-3)/Fever >100.5/DRAKE Albumin Human 25 gm 04/21/22 13:00 Albumin Human 25% (25 Gm/100 Ml) Inj IV BIANCA PRN Hypotension Albuterol 2.5 mg 04/21/22 08:30 Albuterol 2.5 Mg/3 Ml Nebu IH Q3HRT PRN Shortness Of Breath Albuterol/Ipratropium 1 ampul 04/21/22 14:00 04/22/22 08:03 Ipratropium/Albuterol Sulfate 3 Ml Ampul.Neb IH 1 ampul TIDRT CONNOR Administration Clopidogrel Bisulfate 75 mg 04/19/22 12:00 04/21/22 12:04 Clopidogrel 75 Mg Tab PO Not Given QDAY CONNOR Divalproex Sodium 750 mg 04/20/22 22:00 04/21/22 23:[address] 250 Mg Tab PO 750 mg BID CONNOR Administration Epoetin Lb-epbx 10,000 unit 04/21/22 13:00 Epoetin Lb-Epbx 10,000 Unit/1 Ml Vial IV BIANCA PRN hemodialysis NORepinephrine/NS 8 MG-250 ML 8 mg in 250 mls @ 3.75 mls/hr 04/19/22 09:00 04/22/22 11:20 Norepinephrine/Ns 8 Mg-250 Ml (Double Conc) IV 4 mcg/min TITRATE CONNOR 7.5 mls/hr Titration Protocol 2 MCG/MIN Heparin Sodium/Sodium Chloride 25,000 unit in 500 mls @ 15 mls/hr 04/19/22 18:00 04/22/22 06:33 Heparin/ 0.45% Nacl-25,000 Unit/500 Ml IV 850 units/hr TITR CONNOR 17 mls/hr Titration Protocol 750 UNITS/HR Sodium Chloride 100 mls @ 999 mls/hr 04/21/22 13:02 Nacl 0.9% IV BIANCA PRN Hypotension Sodium Chloride 100 mls @ 999 mls/hr 04/22/22 09:12 Nacl 0.9% IV BIANCA PRN Hypotension Lorazepam 1 mg 04/19/22 12:00 04/21/22 12:05 Lorazepam 1 Mg Tab PO Not Given DAILY CONNOR Metoclopramide HCl 5 mg 04/19/22 09:55 Metoclopramide 10 Mg/2 Ml Inj IV Q6H PRN Nausea And Vomiting Midodrine 15 mg 04/20/22 13:00 04/22/22 09:29 Midodrine 5 Mg Tab PO 15 mg 0800,1300,1800 CONNOR Administration Miscellaneous Medication 5 mg 04/19/22 10:00 Memantine Xr PO DAILY CONNOR Morphine Sulfate 2 mg 04/19/22 09:55 04/19/22 14:30 Morphine 2 Mg/1 Ml Inj IV 2 mg Q4H PRN Administration Pain, Moderate (4-6) Naloxone HCl 0.1 mg 04/19/22 09:55 Naloxone 0.4 Mg/1 Ml Inj IV Q2MIN PRN Res Rate </= 8 or 02 SAT < 92% Pantoprazole Sodium 40 mg 04/19/22 12:00 04/22/22 09:29 Pantoprazole 40 Mg Tab PO 40 mg QDAC CONNOR Administration Quetiapine Fumarate 400 mg 04/19/22 12:00 04/21/22 23:30 Quetiapine 200 Mg Tab PO 400 mg BID CONNOR Administration Risperidone 0.5 mg 04/19/22 12:00 04/21/22 23:29 Risperidone 1 Mg Tab PO 0.5 mg BID CONNOR Administration Senna 8.6 mg 04/19/22 12:00 04/21/22 23:29 Sennosides 8.6 Mg Tab PO 8.6 mg BID CONNOR Administration Sevelamer Carbonate 800 mg 04/19/22 12:00 04/21/22 17:26 Sevelamer Carbonate 800 Mg Tab PO Not Given TIDWM CONNOR Sodium Chloride 10 ml 04/19/22 12:00 04/22/22 00:55 Sodium Chloride 0.9% 10 Ml Flush Syringe IV 10 ml BID CONNOR Administration Sodium Chloride 10 ml 04/19/22 11:19 Sodium Chloride 0.9% 10 Ml Flush Syringe IV PRN PRN LINE FLUSH
[2022-04-22] MEDS: QUEtiapine 200 MG TAB PO SCH (11:54)
[2022-04-22] MEDS: SEVELAMER CARBONATE 800 MG TAB PO SCH ×2 (11:54→17:25)
[2022-04-22] MEDS: LORazepam 1 MG TAB PO SCH (11:55)
[2022-04-22] MEDS: SENNOSIDES 8.6 MG TAB PO SCH (11:55)
[2022-04-22] MEDS: CLOPIDOGREL 75 MG TAB PO SCH (11:55)
[2022-04-22] MEDS: risperiDONE 1 MG TAB PO SCH ×2 (11:55→21:08)
[2022-04-22] MEDS: DIVALPROEX DR 250 MG TAB PO SCH (11:56)
[2022-04-22] MEDS: HEPARIN/ 0.45% NACL DRIP 25,000 UNIT/500 ML BAG IV SCH (12:08)
[2022-04-22] MEDS ORDERED: LORazepam 0.5 MG TAB PO PRN (19:07)
[2022-04-22] MEDS ORDERED: QUEtiapine 200 MG TAB PO SCH (19:07)
[2022-04-22] MEDS: VALPROIC ACID 250 MG/5 ML ORAL LIQD FEEDTUBE SCH (21:08)
[2022-04-22] MEDS ORDERED: SENNOSIDES 8.6 MG TAB FEEDTUBE SCH (22:00)
[2022-04-23 04:39] LABS: Hematocrit 23.3 % (30.3-42.9); Hemoglobin 7.3 gm/dl (10.1-14.3)
[2022-04-23 04:43] LABS: Calcium 8.6 mg/dL (8.4-10.2)
[2022-04-23] MEDS ORDERED: PANTOPRAZOLE 40 MG TAB PO SCH (07:30)
[2022-04-23] MEDS: IPRATROPIUM/ALBUTEROL SULFATE 3 ML AMPUL.NEB IH SCH ×2 (07:40→17:31)
[2022-04-23] MEDS: MIDODRINE 5 MG TAB PO SCH ×3 (08:14→17:51)
[2022-04-23] MEDS: NORepinephrine/NS 8 MG-250 ML 8 MG/250 ML INFUS..BTL IV SCH (08:15)
[2022-04-23] MEDS: SEVELAMER CARBONATE 800 MG TAB PO SCH ×3 (09:31→17:13)
[2022-04-23] MEDS: VALPROIC ACID 250 MG/5 ML ORAL LIQD FEEDTUBE SCH ×2 (10:46→21:04)
[2022-04-23] MEDS: SENNOSIDES 8.6 MG TAB FEEDTUBE SCH ×2 (10:46→21:05)
[2022-04-23] MEDS: LANSOPRAZOLE 30 MG SOLUTAB FEEDTUBE SCH (10:46)
[2022-04-23] MEDS: risperiDONE 1 MG TAB PO SCH ×2 (10:46→21:04)
[2022-04-23] MEDS: CLOPIDOGREL 75 MG TAB FEEDTUBE SCH (10:46)
--- NOTE | 2022-04-23 11:42 | Progress Note ---
Assessment and Plan Patient is a 66-year-old female medical history of hypertension, GERD, seizure disorder, vascular dementia, ESRD on hemodialysis (TTS), osteoarthritis, bipolar disorder, schizophrenia, anxiety disorder, Liver disease and limited mobility currently a resident of [facility] and presented with altered mental status. Patient was initially seen here in the ED the day prior and was discharged but documentation on the chart as patient is currently with altered mental status and unable to provide information shows that the patient was refused by the facility stating that she had been combative and has missed several days of dialysis as a result of behavioral disturbance. On presentation patient was noted to be hypotensive more than normal and was noted with room air oxygen saturation in the 70s and unfortunately went into SVT in the 150s requiring cardiac shock being delivered under conscious sedation. Patient remains very lethargic and sedated although easily arousable unable to provide information. Review of her charts from prior shows that her systolic blood pressure runs in the 80s and she is on midodrine outpatient. She is however not on home oxygen. She is currently in the ED on pressors and again unfortunately unable to provide any information. She is oriented to self and place per documentation prior to defibrillation. During one of her last hospitalization she was recommended to have a cholecystectomy which does not appear that was done at the time. She does not endorse any abdominal pain at this time. During that last admission also she had acute hypoxic respiratory failure but was weaned down to room air prior to discharge Patients past surgical history Hysterectomy and right upper extrmity Fistula. According to the chart, no hstory of smoking, alcohol or drug abuse. Patient awake, Resting On room air and O2 saturation running 96%. No acute respiratory distress. Patient afebrile. No leukocytosis. Blood pressure 108/60 , Pulse 100, respirations 26. Patient HGB 04/23/22 7.3. Continue Monitor HGB, If HGB drops below 7.0. Recommend blood transfusion. Chest xray 04/22/22 reported New moderate right and trace left pleural effusions with minimal streaky airspace disease in the right midlung. Recommend ultrasound of chest. Patient is on I/V Heparin, I/V Norepinephrine, Albuterol/atrovent aerosol treatments, Protonix I spent critical care time of 35 minutes reviewing the chart, examine the patient, review chest xray, lab results, talking to the nursing staff and work up plan of treatment in this critically ill patient with multiple medical problems. - Patient Problems (1) Acute respiratory failure with hypoxia Current Visit: No Status: Acute Plan to address problem: Improved. Patient presently on room air. O2 saturation 96%. Albuterol/atrovent aerosol treatments q 6 hours. (2) Altered mental status Current Visit: Yes Status: Acute Plan to address problem: Likely from metabolic encephalopathy and senile dementia. Management as per primary care and neurology. (3) Uremic encephalopathy Current Visit: Yes Status: Acute Plan to address problem: Patient missed dialysis. Patient back on dialysis. (4) ESRD (end stage renal disease) on dialysis Current Visit: Yes Status: Chronic Plan to address problem: Patient is on dialysis. Management as per Nephrology. (5) Hypotension Current Visit: Yes Status: Chronic Qualifiers: Plan to address problem: Patient is on Nor epinephrine. (6) Bipolar disorder Current Visit: No Status: Acute Plan to address problem: Recommend to consult psychiatry. Management as per primary care and Psychiatry. (7) GERD (gastroesophageal reflux disease) Current Visit: No Status: Acute Plan to address problem: Patient is on Protonix. (8) Seizure disorder Current Visit: No Status: Chronic Plan to address problem: Management as per primary care and neurology. (9) T2DM (type 2 diabetes mellitus) Current Visit: No Status: Chronic Qualifiers: Diabetes mellitus prison insulin use: unspecified prison insulin use status Plan to address problem: Management as per primary care. (10) Pleural effusion Current Visit: No Status: Acute Plan to address problem: Chest xray reported bilateral pleural effusions, Moderate on the right, small effusion on the left. Obtaining ultrasound of chest. Subjective Date of service: 04/23/22 Principal diagnosis: AHRF; Shock; AMS; SVT; NSTEMI; ESRD; Protein calorie malnutrition Interval history: Patient is a 66-year-old female medical history of hypertension, GERD, seizure disorder, vascular dementia, ESRD on hemodialysis (TTS), osteoarthritis, bipolar disorder, schizophrenia, anxiety disorder, Liver disease and limited mobility currently a resident of [facility] and presented with altered mental status. Patient was initially seen here in the ED the day prior and was discharged but documentation on the chart as patient is currently with altered mental status and unable to provide information shows that the patient was refused by the facility stating that she had been combative and has missed several days of dialysis as a result of behavioral disturbance. On presentation patient was noted to be hypotensive more than normal and was noted with room air oxygen saturation in the 70s and unfortunately went into SVT in the 150s requiring cardiac shock being delivered under conscious sedation. Patient remains very lethargic and sedated although easily arousable unable to provide information. Review of her charts from prior shows that her systolic blood pressure runs in the 80s and she is on midodrine outpatient. She is however not on home oxygen. She is currently in the ED on pressors and again unfortunately unable to provide any information. She is oriented to self and place per documentation prior to defibrillation. During one of her last hospitalization she was recommended to have a cholecystectomy which does not appear that was done at the time. She does not endorse any abdominal pain at this time. During that last admission also she had acute hypoxic respiratory failure but was weaned down to room air prior to discharge Patients past surgical history Hysterectomy and right upper extrmity Fistula. According to the chart, no hstory of smoking, alcohol or drug abuse. Patient awake, Resting On room air and O2 saturation running 96%. No acute respiratory distress. Patient afebrile. No leukocytosis. Blood pressure 108/60 , Pulse 100, respirations 26. Patient HGB 04/23/22 7.3. Continue Monitor HGB, If HGB drops below 7.0. Recommend blood transfusion. Chest xray 04/22/22 reported New moderate right and trace left pleural effusions with minimal streaky airspace disease in the right midlung. Recommend ultrasound of chest. Patient is on I/V Heparin, I/V Norepinephrine, Albuterol/atrovent aerosol treatments, Protonix Objective Vital Signs - 12hr 04/22/22 04/23/22 04/23/22 23:45 00:00 00:15 Temperature Pulse Rate 81 74 73 Pulse Rate [ Anterior Bilateral Throughout] Pulse Rate [ 74 From Monitor] Respiratory 19 20 22 Rate Respiratory Rate [Anterior Bilateral Throughout] Blood Pressure 106/53 112/53 113/51 O2 Sat by Pulse 98 98 99 Oximetry 04/23/22 04/23/22 04/23/22 00:30 00:45 01:00 Temperature Pulse Rate 73 76 73 Pulse Rate [ Anterior Bilateral Throughout] Pulse Rate [ From Monitor] Respiratory 19 22 21 Rate Respiratory Rate [Anterior Bilateral Throughout] Blood Pressure 118/59 104/50 113/53 O2 Sat by Pulse 98 97 97 Oximetry 04/23/22 04/23/22 04/23/22 01:15 01:30 01:45 Temperature Pulse Rate 75 96 H 83 Pulse Rate [ Anterior Bilateral Throughout] Pulse Rate [ From Monitor] Respiratory 22 22 22 Rate Respiratory Rate [Anterior Bilateral Throughout] Blood Pressure 105/47 94/55 106/49 O2 Sat by Pulse 97 98 98 Oximetry 04/23/22 04/23/22 04/23/22 02:00 02:15 02:30 Temperature Pulse Rate 77 91 H 77 Pulse Rate [ Anterior Bilateral Throughout] Pulse Rate [ From Monitor] Respiratory 20 27 H 20 Rate Respiratory Rate [Anterior Bilateral Throughout] Blood Pressure 111/42 109/44 108/47 O2 Sat by Pulse 96 95 97 Oximetry 04/23/22 04/23/22 04/23/22 02:45 03:00 03:16 Temperature Pulse Rate 81 78 95 H Pulse Rate [ Anterior Bilateral Throughout] Pulse Rate [ From Monitor] Respiratory 21 21 25 H Rate Respiratory Rate [Anterior Bilateral Throughout] Blood Pressure 117/49 115/40 O2 Sat by Pulse 96 96 98 Oximetry 04/23/22 04/23/22 04/23/22 03:30 03:45 04:00 Temperature 98.3 F Pulse Rate 78 83 81 Pulse Rate [ Anterior Bilateral Throughout] Pulse Rate [ 72 From Monitor] Respiratory 20 21 20 Rate Respiratory Rate [Anterior Bilateral Throughout] Blood Pressure 114/46 113/47 111/58 O2 Sat by Pulse 97 96 100 Oximetry 04/23/22 04/23/22 04/23/22 04:15 04:30 04:45 Temperature Pulse Rate 94 H 92 H 103 H Pulse Rate [ Anterior Bilateral Throughout] Pulse Rate [ From Monitor] Respiratory 23 21 15 Rate Respiratory Rate [Anterior Bilateral Throughout] Blood Pressure 111/58 114/49 114/49 O2 Sat by Pulse 95 96 93 Oximetry 04/23/22 04/23/22 04/23/22 05:00 05:15 05:30 Temperature Pulse Rate 105 H 86 78 Pulse Rate [ Anterior Bilateral Throughout] Pulse Rate [ From Monitor] Respiratory 15 22 22 Rate Respiratory Rate [Anterior Bilateral Throughout] Blood Pressure 67/36 102/49 112/46 O2 Sat by Pulse 93 96 97 Oximetry 04/23/22 04/23/22 04/23/22 05:45 06:00 06:15 Temperature Pulse Rate 79 82 97 H Pulse Rate [ Anterior Bilateral Throughout] Pulse Rate [ From Monitor] Respiratory 22 18 24 Rate Respiratory Rate [Anterior Bilateral Throughout] Blood Pressure 121/48 113/54 110/44 O2 Sat by Pulse 97 96 95 Oximetry 04/23/22 04/23/22 04/23/22 06:30 06:45 07:00 Temperature Pulse Rate 83 94 H 95 H Pulse Rate [ Anterior Bilateral Throughout] Pulse Rate [ From Monitor] Respiratory 24 19 22 Rate Respiratory Rate [Anterior Bilateral Throughout] Blood Pressure 115/37 106/40 103/42 O2 Sat by Pulse 94 94 95 Oximetry 04/23/22 04/23/22 04/23/22 07:15 07:30 07:41 Temperature Pulse Rate 95 H 99 H Pulse Rate [ 101 H Anterior Bilateral Throughout] Pulse Rate [ From Monitor] Respiratory 20 13 Rate Respiratory 15 Rate [Anterior Bilateral Throughout] Blood Pressure 105/49 110/52 O2 Sat by Pulse 95 95 Oximetry 04/23/22 04/23/22 04/23/22 07:45 08:00 08:03 Temperature Pulse Rate 97 H 101 H Pulse Rate [ Anterior Bilateral Throughout] Pulse Rate [ 99 H From Monitor] Respiratory 16 11 L 21 Rate Respiratory Rate [Anterior Bilateral Throughout] Blood Pressure 110/47 101/43 O2 Sat by Pulse 100 100 100 Oximetry 04/23/22 04/23/22 04/23/22 08:07 08:15 08:30 Temperature 99.6 F Pulse Rate 97 H 102 H Pulse Rate [ Anterior Bilateral Throughout] Pulse Rate [ From Monitor] Respiratory 21 21 Rate Respiratory Rate [Anterior Bilateral Throughout] Blood Pressure 91/42 89/42 O2 Sat by Pulse 100 94 Oximetry 04/23/22 04/23/22 04/23/22 08:45 09:00 09:15 Temperature Pulse Rate 107 H 98 H 96 H Pulse Rate [ Anterior Bilateral Throughout] Pulse Rate [ From Monitor] Respiratory 15 19 19 Rate Respiratory Rate [Anterior Bilateral Throughout] Blood Pressure 99/51 99/48 102/51 O2 Sat by Pulse 93 95 95 Oximetry Constitutional: no acute distress, alert Eyes: non-icteric ENT: oropharynx moist Neck: supple, no lymphadenopathy, no JVD Effort: mildly labored Ascultation: Bilateral: diminished breath sounds Percussion: Bilateral: not dull Cardiovascular: regular rate and rhythm Gastrointestinal: normoactive bowel sounds, soft, non-tender, non-distended Integumentary: normal Extremities: no cyanosis, no edema, pulses normal, no ischemia or petechiae Neurologic: non-focal exam (grossly), pupils equal and round, CN II-XII normal, motor strength normal and Psychiatric: mood appropriate, affect normal CBC and BMP: 04/24/22 04:00 04/24/22 04:00 ABG, PT/INR, D-dimer: PT/INR, D-dimer PT 17.9 Sec. (12.2-14.9) H 04/19/22 19:40 INR 1.28 (0.87-1.13) H 04/19/22 19:40 Abnormal lab findings: Abnormal Labs 04/19/22 04/19/22 04/19/22 04:53 04:53 04:53 WBC RBC 3.06 L Hgb 8.6 L Hct 28.0 L RDW 16.3 H Camp % (Auto) 11.3 H Lymph # (Auto) PT INR APTT Heparin Anti-Xa Level Sodium Potassium 5.1 H Carbon Dioxide 21 L BUN 94 H Creatinine 6.3 H Glucose POC Glucose Phosphorus Magnesium Troponin T 0.415 H* Albumin 2.7 L Free T4 0.28 L 04/19/22 04/19/22 04/20/22 19:40 19:40 05:30 WBC 4.1 L RBC 2.97 L Hgb 8.5 L 8.2 L Hct 27.8 L 27.1 L RDW 17.0 H Camp % (Auto) 15.2 H Lymph # (Auto) 1.1 L PT 17.9 H INR 1.28 H APTT 199.1 H* Heparin Anti-Xa Level Sodium Potassium Carbon Dioxide BUN Creatinine Glucose POC Glucose Phosphorus Magnesium Troponin T Albumin Free T4 04/20/22 04/20/22 04/21/22 05:30 18:23 00:29 WBC RBC Hgb Hct RDW [place] % (Auto) Lymph # (Auto) PT INR APTT Heparin Anti-Xa Level 0.17 L Sodium Potassium Carbon Dioxide 21 L BUN 95 H Creatinine 6.6 H Glucose 139 H POC Glucose Phosphorus Magnesium 2.60 H Troponin T Albumin 2.4 L Free T4 04/21/22 04/21/22 04/22/22 04:00 04:00 03:45 WBC RBC 2.74 L Hgb 7.7 L Hct 24.7 L RDW 16.6 H Camp % (Auto) Lymph # (Auto) PT INR APTT Heparin Anti-Xa Level < 0.10 L Sodium 133 L Potassium Carbon Dioxide 20 L BUN 89 H Creatinine 6.6 H Glucose 131 H POC Glucose Phosphorus 6.40 H Magnesium 2.50 H Troponin T Albumin Free T4 04/22/22 04/22/22 04/22/22 03:45 12:13 14:30 WBC RBC Hgb Hct RDW [place] % (Auto) Lymph # (Auto) PT INR APTT Heparin Anti-Xa Level 0.11 L 0.11 L Sodium 136 L Potassium Carbon Dioxide 18 L BUN 90 H Creatinine 6.3 H Glucose 121 H POC Glucose Phosphorus 6.50 H Magnesium Troponin T Albumin Free T4 04/22/22 04/23/22 04/23/22 23:08 02:17 04:10 WBC RBC Hgb 7.3 L Hct 23.3 L RDW [place] % (Auto) Lymph # (Auto) PT INR APTT Heparin Anti-Xa Level 0.14 L Sodium Potassium Carbon Dioxide BUN Creatinine Glucose POC Glucose 153 H Phosphorus Magnesium Troponin T Albumin Free T4 04/23/22 04/23/22 04:10 06:09 WBC RBC Hgb Hct RDW [place] % (Auto) Lymph # (Auto) PT INR APTT Heparin Anti-Xa Level Sodium Potassium Carbon Dioxide BUN 36 H Creatinine 3.4 H Glucose 131 H POC Glucose 141 H Phosphorus Magnesium Troponin T Albumin Free T4 Allied health notes reviewed: nursing
--- NOTE | 2022-04-23 13:44 | Progress Note ---
<COLLETTE HANNA - Last Filed: 04/23/22 19:19> Assessment and Plan Assessment and plan: This is a 66-year-old female with known past medical history of HTN, GERD, Seizure disorder, vascular dementia, ESRD on HD(TTS), OA, bipolar disorder, schizophrenia, anxiety disorder, and limited mobility admitted for Acute hypxic respiratory, hypotension, and SVT s/p X2 doses adenosine and cardioversion. Hospital Course to Date: 04/20: Patient went into Afib with RVR overnight, now on amiodarone gtt per yan cuello. Patient remains in AFib with RVR this am, HR in the 120-140s. BP marginal on Levophed gtt, currently not a candidate for BB. Midodrine increased to 15mg TID. 2D Echo pending. On heparin gtt per protocol. No HD today per nephro due to hypotension and tachycardia. 04/21: Converted to SR this am, remains on Amiodarone and heparin. Awaiting cardio final recommendations. Still on Levophed gtt for low BP, given patient history of chronic hypotension, Wean pressor for MAP goal of 60s. Patient is pocketing foods, currently NPO, awaiting speech eval and treat. 04/22: Patient passed speech swallow eval yesterday, however, patient is refusing PO intakes including meds. Will insert DHT for nutrition and meds administration. Patient remains in SR this am, amiodaron gtt transitioned to PO per cardio. Patient remains on heparin and Levophed gtt. Patient has not received PO midrodrine for 24hrs, resume meds once DHT is inserted. Keep femoral CVC for another 24hrs, anticipating will be able to wean off pressor once patient receive midodrine. Will reassess in the morning. No HD overnight, unable to cannulate AVF, plan to attempt again today per Nephro. Possible IR/Vascular surgery consult if unsuccessful again today. 04/23: Mentation a lot better this am. DHT was inserted, meds resumed and TF initiated. Levophed gtt increased overnight due to worsen hypotension, suspected it is due to sedative agents. Seroquel decreased to 200mg BID and scheduled ativan switched to PRN. Continue midodrine TID and wean off levophed gtt for MAP goal of 60. Patient tolerated HD yesterday, continue iHD per Nephrology. CCM recommendations noted, Chest US ordered for pleural effusion. Assessement and Plan #Atrial Fibrillation with RVR #Supraventricular Tachycardia s/p Cardioversion #Acute on Chronic Hypotension #NSTEMI Type 2 - Presented with AMS, Tachycardia, and hypotension requiring pressors - was found in SVT in the ED s/p unsuccessful X2 doses of adenosine then cardioversion. - Patient initially converted to SR post cardioversion, then went into afib RVR in the ICU - Elevated troponin most likely related to ESRD - Cardiology consulted, appreciate recommendations - Converted to SR this am, HR in the 70-80s - Amio gtt transitioned to PO per Cardio - Per patient's son, patient is hypotensive at baseline - Patient remains on Levophed gtt, howere patient has been refusing PO meds, has not received PO midrodrine - Insert DHT and continue Midodrine TID - Continue blood pressure monitor per protocol - Titrate pressors for MAP goal of 60 - Not a candidate for MARGOTH, ARB, and BB due to hypotension - 2D Echo EF 60-65% - on Lipitor and Plavix - CCM also following #Acute Hypoxic Respiratory Failure #Moderate Pleural Effusion - Presented with low SPO2, in the 70s on RA - probably related to above - Patient currently stable on 2L NC, no respiratory distress noted - Rate control per cardiology - Continue O2 supplementation and wean as tolerated - Continue SPO2 monitoring for SPO2 goal above 92% - Chest US ordered #Acute Metabolic Encephalopathy #H/o Vascular Dementia #Severe Anxiety #Bipolar Disorder & Schizophrenia - Presented with AMS, probably due to above - More awake and alert today, but confused - Resume home meds - Seroquel reduced to 200mg BID and ativan switched to PRN - PRN Analgesia for pain control - Maintenance of sleep-wake cycle - Mental Health/Psych on consult #End-Stage Renal Disease(ESRD) on HD - Nephrology on consult, appreciated recommendation - No HD yesterday per Nephro due to hypotension and tachycardia - Strict intake and output - Avoid nephrotoxic medications; Renally dose medications - Monitor and replace electrolytes as needed #Anemia of Chronic Disease - most likely secondary to ESRD - H&H stable, no s/s of any active bleeding - Epogen with HD per Nephro - Continue to trend H&H - Transfuse for hgb less than 7 #H/o Seizure Disorder - Resume home meds #Moderate Protein Caloric Malnutrition - Patient noted with poor dentition, diet switched to pureed - Encourage PO intake and nutrition supplement - Nutrition consulted #GI/DVT Prophylaxis - PPI- Protonix - Heparin gtt - SCDs to bilateral lower extremities while in bed #Advance Care Planning - Disease education data, care plan, diagnoses, and prognosis were discussed with patient's son at the bedside. Patient is a FULL code. Patient acknowledged understanding and agreed with current care plan. The high probability of a clinically significant, sudden or life threatening deterioration of the [multiple] system(s) required my full and direct attention, intervention and personal management. The aggregate critical care time was [60] minutes. This time is in addition to time spent performing reported procedures but includes the following: [x] Data Review and interpretation [x] Patient assessment and monitoring of vital signs [x] Documentation [x] Medication orders and management Disposition Plan: ICU Total Time Spent with Patient (Minutes): 60 History Interval history: Patient seen and examined at the bedside. Awake and pleasant this am, following simple commands. Remains on 2L NC, denied any pain nor any discomfort at this time. Tolerated HD yesterday. Remains on Levophed. GUERRERO overnight Hospitalist Physical - Physical exam Narrative exam: General appearance: Present: no acute distress, well-nourished, obese - EENT Eyes: Present: PERRL ENT: hearing intact, poor dentition - Neck Neck: Present: normal ROM - Respiratory Respiratory effort: normal Respiratory: bilateral: diminished - Cardiovascular Rhythm: irregularly irregular Heart Sounds: Present: S1 & S2 - Extremities Extremities: no ischemia, pulses intact, pulses symmetrical Extremity abnormal: edema - Peripheral Assessment Generalized Edema Type: Non-pitting Edema Degree: 2+ Capillary Refill: < 3 seconds Skin Temperature: Warm Peripheral Pulses: within normal limits - Abdominal General gastrointestinal: soft, non-distended, normal bowel sounds - Integumentary Integumentary: Present: warm, dry - Psychiatric Psychiatric: appropriate mood/affect, cooperative, other (Awake and alert) - Neurologic Neurologic: moves all extremities, other (Awake and alert) - Allied Health Allied health notes reviewed: nursing, case management - Constitutional Vitals: Temp Pulse Resp BP Pulse Ox 99.6 F 96 H 19 102/51 95 04/23/22 08:07 04/23/22 09:15 04/23/22 09:15 04/23/22 09:15 04/23/22 09:15 HEART Score - HEART Score Troponin: Troponin T 0.415 ng/mL (0.00-0.029) H* 04/19/22 04:53 Results - Labs CBC & Chem 7: 04/23/22 04:10 04/23/22 04:10 Labs: Laboratory Last Values WBC 5.1 K/mm3 (4.5-11.0) 04/21/22 04:00 RBC 2.74 M/mm3 (3.65-5.03) L 04/21/22 04:00 Hgb 7.3 gm/dl (10.1-14.3) L 04/23/22 04:10 Hct 23.3 % (30.3-42.9) L 04/23/22 04:10 MCV 90 fl (79-97) 04/21/22 04:00 MCH 28 pg (28-32) 04/21/22 04:00 MCHC 31 % (30-34) 04/21/22 04:00 RDW 16.6 % (13.2-15.2) H 04/21/22 04:00 Plt Count 291 K/mm3 (140-440) 04/23/22 04:10 Lymph % (Auto) 26.7 % (13.4-35.0) 04/20/22 05:30 [place] % (Auto) 15.2 % (0.0-7.3) H 04/20/22 05:30 Eos % (Auto) 3.8 % (0.0-4.3) 04/20/22 05:30 Baso % (Auto) 1.2 % (0.0-1.8) 04/20/22 05:30 Lymph # (Auto) 1.1 K/mm3 (1.2-5.4) L 04/20/22 05:30 [place] # (Auto) 0.6 K/mm3 (0.0-0.8) 04/20/22 05:30 Eos # (Auto) 0.2 K/mm3 (0.0-0.4) 04/20/22 05:30 Baso # (Auto) 0.0 K/mm3 (0.0-0.1) 04/20/22 05:30 Seg Neutrophils % 53.1 % (40.0-70.0) 04/20/22 05:30 Seg Neutrophils # 2.2 K/mm3 (1.8-7.7) 04/20/22 05:30 PT 17.9 Sec. (12.2-14.9) H 04/19/22 19:40 INR 1.28 (0.87-1.13) H 04/19/22 19:40 APTT 199.1 Sec. (24.2-36.6) H* 04/19/22 19:40 Heparin Anti-Xa Level 0.14 U.I./ml (0.3-0.7) L 04/23/22 02:17 Sodium 139 mmol/L (137-145) 04/23/22 04:10 Potassium 3.7 mmol/L (3.6-5.0) 04/23/22 04:10 Chloride 102.0 mmol/L (98-107) 04/23/22 04:10 Carbon Dioxide 23 mmol/L (22-30) 04/23/22 04:10 Anion Gap 18 mmol/L 04/23/22 04:10 BUN 36 mg/dL (7-17) H 04/23/22 04:10 Creatinine 3.4 mg/dL (0.6-1.2) H 04/23/22 04:10 Estimated GFR 16 ml/min 04/23/22 04:10 BUN/Creatinine Ratio 11 % 04/23/22 04:10 Glucose 131 mg/dL (65-100) H 04/23/22 04:10 POC Glucose 141 mg/dL (70-105) H 04/23/22 06:09 Lactic Acid 1.60 mmol/L (0.7-2.0) 04/19/22 07:14 Calcium 8.6 mg/dL (8.4-10.2) 04/23/22 04:10 Phosphorus 3.10 mg/dL (2.5-4.5) D 04/23/22 04:10 Magnesium 1.90 mg/dL (1.7-2.3) 04/23/22 04:10 Total Bilirubin 0.30 mg/dL (0.1-1.2) 04/20/22 05:30 AST 11 units/L (5-40) 04/20/22 05:30 ALT 7 units/L (7-56) 04/20/22 05:30 Alkaline Phosphatase 101 units/L (35-129) 04/20/22 05:30 Ammonia 25.0 umol/L (25-60) 04/19/22 04:53 Troponin T 0.415 ng/mL (0.00-0.029) H* 04/19/22 04:53 Total Protein 6.4 g/dL (6.3-8.2) 04/20/22 05:30 Albumin 2.4 g/dL (3.9-5) L 04/20/22 05:30 Albumin/Globulin Ratio 0.6 % 04/20/22 05:30 TSH 1.700 mlU/mL (0.270-4.200) 04/19/22 04:53 Free T4 0.28 ng/dL (0.76-1.46) L 04/19/22 04:53 Hepatitis A IgM Ab Non-reactive (NonReactive) 04/19/22 04:53 Hep Bs Antigen Non-reactive (Negative) 04/19/22 04:53 Hep B Core IgM Ab Non-reactive (NonReactive) 04/19/22 04:53 Hepatitis C Antibody Non-reactive (NonReactive) 04/19/22 04:53 Microbiology: Microbiology 04/19/22 04:53 Peripheral/Venous Blood Culture - Preliminary NO GROWTH AFTER 4 DAYS 04/19/22 05:43 Peripheral/Venous Blood Culture - Preliminary NO GROWTH AFTER 4 DAYS Cleary/IV: Voiding Method Incontinent Active Medications - Current Medications Current Medications: Generic Name Dose Route Start Last Admin Trade Name Freq PRN Reason Stop Dose Admin Acetaminophen 650 mg 04/22/22 20:12 Acetaminophen 325 Mg/10.15 Ml Oral Liqd Unit Dose PO Q6H PRN Pain MILD(1-3)/Fever >100.5/DRAKE Albumin Human 25 gm 04/21/22 13:00 04/22/22 16:31 Albumin Human 25% (25 Gm/100 Ml) Inj IV 25 gm BIANCA PRN Administration Hypotension Albuterol 2.5 mg 04/21/22 08:30 Albuterol 2.5 Mg/3 Ml Nebu IH Q3HRT PRN Shortness Of Breath Albuterol/Ipratropium 1 ampul 04/21/22 14:00 04/23/22 07:40 Ipratropium/Albuterol Sulfate 3 Ml Ampul.Neb IH 1 ampul TIDRT CONNOR Administration Clopidogrel Bisulfate 75 mg 04/23/22 10:00 04/23/22 10:46 Clopidogrel 75 Mg Tab FEEDTUBE 75 mg QDAY CONNOR Administration Epoetin Lb-epbx 20,000 unit 04/23/22 12:00 Epoetin Lb-Epbx 20,000 Unit/1 Ml Vial IV BIANCA PRN HEMODIALYSIS NORepinephrine/NS 8 MG-250 ML 8 mg in 250 mls @ 3.75 mls/hr 04/19/22 09:00 04/23/22 12:10 Norepinephrine/Ns 8 Mg-250 Ml (Double Conc) IV 0 mcg/min TITRATE CONNOR 0 mls/hr Titration Protocol 2 MCG/MIN Heparin Sodium/Sodium Chloride 25,000 unit in 500 mls @ 15 mls/hr 04/19/22 18:00 04/23/22 02:42 Heparin/ 0.45% Nacl-25,000 Unit/500 Ml IV 850 units/hr TITR CONNOR 17 mls/hr Titration Protocol 750 UNITS/HR Sodium Chloride 100 mls @ 999 mls/hr 04/21/22 13:02 Nacl 0.9% IV BIANCA PRN Hypotension Sodium Chloride 100 mls @ 999 mls/hr 04/22/22 09:12 Nacl 0.9% IV BIANCA PRN Hypotension Lansoprazole 30 mg 04/23/22 10:00 04/23/22 10:46 Lansoprazole 30 Mg Solutab FEEDTUBE 30 mg QDAY CONNOR Administration Lorazepam 0.5 mg 04/22/22 19:07 Lorazepam 0.5 Mg Tab PO QDAY PRN Anxiety Metoclopramide HCl 5 mg 04/19/22 09:55 Metoclopramide 10 Mg/2 Ml Inj IV Q6H PRN Nausea And Vomiting Midodrine 15 mg 04/20/22 13:00 04/23/22 13:01 Midodrine 5 Mg Tab PO 15 mg 0800,1300,1800 CONNOR Administration Miscellaneous Medication 5 mg 04/19/22 10:00 Memantine Xr PO DAILY CONNOR Naloxone HCl 0.1 mg 04/19/22 09:55 Naloxone 0.4 Mg/1 Ml Inj IV Q2MIN PRN Res Rate </= 8 or 02 SAT < 92% Quetiapine Fumarate 200 mg 04/23/22 22:00 Quetiapine 200 Mg Tab PO BID CONNOR Risperidone 0.5 mg 04/19/22 12:00 04/23/22 10:46 Risperidone 1 Mg Tab PO 0.5 mg BID CONNOR Administration Senna 17.2 mg 04/23/22 10:00 04/23/22 10:46 Sennosides 8.6 Mg Tab FEEDTUBE 17.2 mg BID CONNOR Administration Sevelamer Carbonate 800 mg 04/19/22 12:00 04/23/22 13:01 Sevelamer Carbonate 800 Mg Tab PO Not Given TIDWM CONNOR Sodium Chloride 10 ml 04/19/22 12:00 04/23/22 10:47 Sodium Chloride 0.9% 10 Ml Flush Syringe IV 10 ml BID CONNOR Administration Sodium Chloride 10 ml 04/19/22 11:19 Sodium Chloride 0.9% 10 Ml Flush Syringe IV PRN PRN LINE FLUSH Valproic Acid 750 mg 04/22/22 22:00 04/23/22 10:46 Valproic Acid 250 Mg/5 Ml Oral Liqd FEEDTUBE 750 mg BID CONNOR Administration Nutrition/Malnutrition Assess - Dietary Evaluation Nutrition/Malnutrition Findings: Nutrition Notes Start: 04/19/22 17:39 Freq: Status: Active Protocol: Document 04/22/22 11:04 TW (Rec: 04/22/22 11:32 TW [id number]) Nutrition Notes Need for Assessment generated from: MD Order Initial or Follow up Reassessment Current Diagnosis CKD (stage V CKD),Hypertension ,Respiratory Failure Other Pertinent Diagnosis GERD, Vascula Dementia, Seizures, Hypotension Current Diet Renal Diet Labs/Tests BUN 90, Creatinine 6.3, Phosphorus 6.5 Pertinent Medications Levophed, Renvela Height 5 ft 2 in Weight 54.43 kg Edwards Body Weight (kg) 50.00 BMI 21.9 Weight Status Appropriate Subjective/Other Information RD consult for TF. Pt pocketing food per Speech Therapist. Burn Absent Trauma Absent #1 Nutrition Diagnosis Inadequate oral intake Etiology altered mental status As Evidenced by Signs and Symptoms Pt. refusing and pocketing food Is patient on ventilator? No Is Patient Ambulatory and/or Out of Bed No REE-([facility]-confined to bed) [phone] Calculation Used for Recommendations [facility] Additional Notes Protein: 65 g/day (1.2g/kg) Fluid: 1-1.5 L/day Nutrition Intervention Change Diet Order: d/c renal diet Nutrition Support: Nepro @ 30 ml/hr with 130 ml free water flush q4h Kcal 1,296 Protein (gm) 58 Carbohydrates (gm) 116 Fat (gm) 58 Fluid (mL) 523 Fiber (gm) 9 Goal #1 TF tolerance Goal #2 TF to meet at least 75% nutrition needs Follow-Up By: 04/24/22 Additional Comments F/U new TF, pressor support <MELINDA BOWEN - Last Filed: 04/24/22 07:26> Assessment and Plan Assessment and plan: I saw and evaluated the patient. I agree with the findings and the plan of care as documented in the Nurse Practitioner's~note, with the following corrections and additions. Hospitalist Physical - Constitutional Vitals: Temp Pulse Resp BP Pulse Ox 99 F 77 24 125/53 91 04/24/22 04:00 04/24/22 07:00 04/24/22 07:00 04/24/22 07:00 04/24/22 07:00 HEART Score - HEART Score Troponin: Troponin T 0.415 ng/mL (0.00-0.029) H* 04/19/22 04:53 Results - Labs CBC & Chem 7: 04/24/22 04:00 04/24/22 04:00 Labs: Laboratory Last Values WBC 5.8 K/mm3 (4.5-11.0) 04/24/22 04:00 RBC 2.48 M/mm3 (3.65-5.03) L 04/24/22 04:00 Hgb 7.1 gm/dl (10.1-14.3) L 04/24/22 04:00 Hct 22.6 % (30.3-42.9) L 04/24/22 04:00 MCV 91 fl (79-97) 04/24/22 04:00 MCH 29 pg (28-32) 04/24/22 04:00 MCHC 32 % (30-34) 04/24/22 04:00 RDW 16.9 % (13.2-15.2) H 04/24/22 04:00 Plt Count 331 K/mm3 (140-440) 04/24/22 04:00 Lymph % (Auto) 26.7 % (13.4-35.0) 04/20/22 05:30 [place] % (Auto) 15.2 % (0.0-7.3) H 04/20/22 05:30 Eos % (Auto) 3.8 % (0.0-4.3) 04/20/22 05:30 Baso % (Auto) 1.2 % (0.0-1.8) 04/20/22 05:30 Lymph # (Auto) 1.1 K/mm3 (1.2-5.4) L 04/20/22 05:30 [place] # (Auto) 0.6 K/mm3 (0.0-0.8) 04/20/22 05:30 Eos # (Auto) 0.2 K/mm3 (0.0-0.4) 04/20/22 05:30 Baso # (Auto) 0.0 K/mm3 (0.0-0.1) 04/20/22 05:30 Seg Neutrophils % 53.1 % (40.0-70.0) 04/20/22 05:30 Seg Neutrophils # 2.2 K/mm3 (1.8-7.7) 04/20/22 05:30 PT 17.9 Sec. (12.2-14.9) H 04/19/22 19:40 INR 1.28 (0.87-1.13) H 04/19/22 19:40 APTT 199.1 Sec. (24.2-36.6) H* 04/19/22 19:40 Heparin Anti-Xa Level 0.12 U.I./ml (0.3-0.7) L 04/24/22 02:10 Sodium 134 mmol/L (137-145) L 04/24/22 04:00 Potassium 3.6 mmol/L (3.6-5.0) 04/24/22 04:00 Chloride 98.0 mmol/L (98-107) 04/24/22 04:00 Carbon Dioxide 24 mmol/L (22-30) 04/24/22 04:00 Anion Gap 16 mmol/L 04/24/22 04:00 BUN 42 mg/dL (7-17) H 04/24/22 04:00 Creatinine 3.9 mg/dL (0.6-1.2) H 04/24/22 04:00 Estimated GFR 14 ml/min 04/24/22 04:00 BUN/Creatinine Ratio 11 % 04/24/22 04:00 Glucose 141 mg/dL (65-100) H 04/24/22 04:00 POC Glucose 142 mg/dL (70-105) H 04/24/22 05:03 Lactic Acid 1.60 mmol/L (0.7-2.0) 04/19/22 07:14 Calcium 9.1 mg/dL (8.4-10.2) 04/24/22 04:00 Phosphorus 2.50 mg/dL (2.5-4.5) 04/24/22 04:00 Magnesium 1.80 mg/dL (1.7-2.3) 04/24/22 04:00 Total Bilirubin 0.30 mg/dL (0.1-1.2) 04/20/22 05:30 AST 11 units/L (5-40) 04/20/22 05:30 ALT 7 units/L (7-56) 04/20/22 05:30 Alkaline Phosphatase 101 units/L (35-129) 04/20/22 05:30 Ammonia 25.0 umol/L (25-60) 04/19/22 04:53 Troponin T 0.415 ng/mL (0.00-0.029) H* 04/19/22 04:53 Total Protein 6.4 g/dL (6.3-8.2) 04/20/22 05:30 Albumin 2.4 g/dL (3.9-5) L 04/20/22 05:30 Albumin/Globulin Ratio 0.6 % 04/20/22 05:30 TSH 1.700 mlU/mL (0.270-4.200) 04/19/22 04:53 Free T4 0.28 ng/dL (0.76-1.46) L 04/19/22 04:53 Hepatitis A IgM Ab Non-reactive (NonReactive) 04/19/22 04:53 Hep Bs Antigen Non-reactive (Negative) 04/19/22 04:53 Hep B Core IgM Ab Non-reactive (NonReactive) 04/19/22 04:53 Hepatitis C Antibody Non-reactive (NonReactive) 04/19/22 04:53 Microbiology: Microbiology 04/19/22 04:53 Peripheral/Venous Blood Culture - Final NO GROWTH AFTER 5 DAYS 04/19/22 05:43 Peripheral/Venous Blood Culture - Final NO GROWTH AFTER 5 DAYS Cleary/IV: Voiding Method Incontinent Active Medications - Current Medications Current Medications: Generic Name Dose Route Start Last Admin Trade Name Freq PRN Reason Stop Dose Admin Acetaminophen 650 mg 04/22/22 20:12 Acetaminophen 325 Mg/10.15 Ml Oral Liqd Unit Dose PO Q6H PRN Pain MILD(1-3)/Fever >100.5/DRAKE Albumin Human 25 gm 04/21/22 13:00 04/22/22 16:31 Albumin Human 25% (25 Gm/100 Ml) Inj IV 25 gm BIANCA PRN Administration Hypotension Albuterol 2.5 mg 04/21/22 08:30 Albuterol 2.5 Mg/3 Ml Nebu IH Q3HRT PRN Shortness Of Breath Albuterol/Ipratropium 1 ampul 04/21/22 14:00 04/24/22 03:18 Ipratropium/Albuterol Sulfate 3 Ml Ampul.Neb IH Not Given TIDRT [facility] Clopidogrel Bisulfate 75 mg 04/23/22 10:00 04/23/22 10:46 Clopidogrel 75 Mg Tab FEEDTUBE 75 mg QDAY CONNOR Administration Epoetin Lb-epbx 20,000 unit 04/23/22 12:00 Epoetin Lb-Epbx 20,000 Unit/1 Ml Vial IV BIANCA PRN HEMODIALYSIS NORepinephrine/NS 8 MG-250 ML 8 mg in 250 mls @ 3.75 mls/hr 04/19/22 09:00 04/24/22 07:15 Norepinephrine/Ns 8 Mg-250 Ml (Double Conc) IV 6 mcg/min TITRATE CONNOR 11.25 mls/hr Titration Protocol 2 MCG/MIN Heparin Sodium/Sodium Chloride 25,000 unit in 500 mls @ 15 mls/hr 04/19/22 18:00 04/24/22 02:38 Heparin/ 0.45% Nacl-25,000 Unit/500 Ml IV 900 units/hr TITR CONNOR 18 mls/hr Titration Protocol 750 UNITS/HR Sodium Chloride 100 mls @ 999 mls/hr 04/21/22 13:02 Nacl 0.9% IV BIANCA PRN Hypotension Sodium Chloride 100 mls @ 999 mls/hr 04/22/22 09:12 Nacl 0.9% IV BIANCA PRN Hypotension Lansoprazole 30 mg 04/23/22 10:00 04/23/22 10:46 Lansoprazole 30 Mg Solutab FEEDTUBE 30 mg QDAY CONNOR Administration Lorazepam 0.5 mg 04/22/22 19:07 Lorazepam 0.5 Mg Tab PO QDAY PRN Anxiety Metoclopramide HCl 5 mg 04/19/22 09:55 Metoclopramide 10 Mg/2 Ml Inj IV Q6H PRN Nausea And Vomiting Midodrine 15 mg 04/20/22 13:00 04/23/22 17:51 Midodrine 5 Mg Tab PO 15 mg 0800,1300,1800 CONNOR Administration Miscellaneous Medication 5 mg 04/19/22 10:00 Memantine Xr PO DAILY CONNOR Naloxone HCl 0.1 mg 04/19/22 09:55 Naloxone 0.4 Mg/1 Ml Inj IV Q2MIN PRN Res Rate </= 8 or 02 SAT < 92% Quetiapine Fumarate 200 mg 04/23/22 22:00 04/23/22 21:05 Quetiapine 200 Mg Tab PO 200 mg BID CONNOR Administration Risperidone 0.5 mg 04/19/22 12:00 04/23/22 21:04 Risperidone 1 Mg Tab PO 0.5 mg BID CONNOR Administration Senna 17.2 mg 04/23/22 10:00 04/23/22 21:05 Sennosides 8.6 Mg Tab FEEDTUBE Not Given BID CONNOR Sevelamer Carbonate 800 mg 04/19/22 12:00 04/23/22 17:13 Sevelamer Carbonate 800 Mg Tab PO Not Given TIDWM CONNOR Sodium Chloride 10 ml 04/19/22 12:00 04/23/22 21:05 Sodium Chloride 0.9% 10 Ml Flush Syringe IV 10 ml BID CONNOR Administration Sodium Chloride 10 ml 04/19/22 11:19 Sodium Chloride 0.9% 10 Ml Flush Syringe IV PRN PRN LINE FLUSH Valproic Acid 750 mg 04/22/22 22:00 04/23/22 21:04 Valproic Acid 250 Mg/5 Ml Oral Liqd FEEDTUBE 750 mg BID CONNOR Administration Nutrition/Malnutrition Assess - Dietary Evaluation Nutrition/Malnutrition Findings: Nutrition Notes Start: 04/19/22 17:39 Freq: Status: Active Protocol: Document 04/22/22 11:04 TW (Rec: 04/22/22 11:32 TW [id number]) Nutrition Notes Need for Assessment generated from: MD Order Initial or Follow up Reassessment Current Diagnosis CKD (stage V CKD),Hypertension ,Respiratory Failure Other Pertinent Diagnosis GERD, Vascula Dementia, Seizures, Hypotension Current Diet Renal Diet Labs/Tests BUN 90, Creatinine 6.3, Phosphorus 6.5 Pertinent Medications Levophed, Renvela Height 5 ft 2 in Weight 54.43 kg Edwards Body Weight (kg) 50.00 BMI 21.9 Weight Status Appropriate Subjective/Other Information RD consult for TF. Pt pocketing food per Speech Therapist. Burn Absent Trauma Absent #1 Nutrition Diagnosis Inadequate oral intake Etiology altered mental status As Evidenced by Signs and Symptoms Pt. refusing and pocketing food Is patient on ventilator? No Is Patient Ambulatory and/or Out of Bed No REE-([facility]-confined to bed) [phone] Calculation Used for Recommendations [facility] Additional Notes Protein: 65 g/day (1.2g/kg) Fluid: 1-1.5 L/day Nutrition Intervention Change Diet Order: d/c renal diet Nutrition Support: Nepro @ 30 ml/hr with 130 ml free water flush q4h Kcal 1,296 Protein (gm) 58 Carbohydrates (gm) 116 Fat (gm) 58 Fluid (mL) 523 Fiber (gm) 9 Goal #1 TF tolerance Goal #2 TF to meet at least 75% nutrition needs Follow-Up By: 04/24/22 Additional Comments F/U new TF, pressor support
--- NOTE | 2022-04-23 15:46 | Progress Note ---
Assessment and Plan If any recurrent tachyarrhythmias, may restart IV Amiodarone drip. Otherwise continue conservative cardiac management as previously outlined. Ischemic evaluation deferred due to mental status. Volume mgmt via HD. Possible thora for R pleural effusion. Pt seen in conjunction with Dr. Mojica, who agrees with the assessment and plan of care. - Patient Problems (1) Altered mental status Current Visit: Yes Status: Acute (2) SVT (supraventricular tachycardia) Current Visit: Yes Status: Acute (3) Atrial fibrillation with RVR Current Visit: Yes Status: Acute (4) Type 2 myocardial infarction Current Visit: Yes Status: Acute (5) Hypotension Current Visit: Yes Status: Chronic Qualifiers: Qualified Code(s): I95.9 - Hypotension, unspecified (6) Anemia Current Visit: Yes Status: Acute (7) ESRD (end stage renal disease) on dialysis Current Visit: Yes Status: Chronic (8) Schizophrenia Current Visit: Yes Status: Chronic (9) Seizure disorder Current Visit: Yes Status: Chronic (10) Cerebral atherosclerosis Current Visit: Yes Status: Chronic (11) Vascular dementia Current Visit: Yes Status: Chronic Subjective Date of service: 04/23/22 Principal diagnosis: SVT Interval history: Mental status improving. Weaned off pressors briefly but may need to restart. Maintaining SR 90s on tele. Objective Vital Signs Temp Pulse Pulse Pulse Resp Resp BP 04/23/22 15:00 94 H 24 89/60 04/23/22 14:45 97 H 21 87/50 04/23/22 14:30 87 22 87/50 04/23/22 14:15 86 23 111/48 04/23/22 14:00 87 23 111/48 04/23/22 13:47 98.0 F 04/23/22 13:45 94 H 25 H 105/56 04/23/22 13:30 94 H 26 H 103/50 04/23/22 13:15 102 H 18 93/44 04/23/22 13:00 88 22 93/44 04/23/22 12:45 92 H 23 89/51 04/23/22 12:30 99 H 26 H 100/53 04/23/22 12:15 101 H 92 H 20 95/55 04/23/22 12:00 100 H 26 H 108/60 04/23/22 11:45 101 H 15 99/54 04/23/22 11:30 87 23 108/48 04/23/22 11:15 83 20 105/51 04/23/22 11:00 87 21 106/51 04/23/22 10:45 85 20 117/55 04/23/22 10:30 81 19 114/57 04/23/22 10:15 88 16 118/57 04/23/22 10:00 88 19 112/57 04/23/22 09:45 89 22 110/54 04/23/22 09:30 93 H 18 110/50 04/23/22 09:15 96 H 19 102/51 04/23/22 09:00 98 H 19 99/48 04/23/22 08:45 107 H 15 99/51 04/23/22 08:30 102 H 21 89/42 04/23/22 08:15 97 H 21 91/42 04/23/22 08:07 99.6 F 04/23/22 08:03 99 H 21 04/23/22 08:00 101 H 11 L 101/43 04/23/22 07:45 97 H 16 110/47 04/23/22 07:41 101 H 15 04/23/22 07:30 99 H 13 110/52 04/23/22 07:15 95 H 20 105/49 04/23/22 07:00 95 H 22 103/42 04/23/22 06:45 94 H 19 106/40 04/23/22 06:30 83 24 115/37 04/23/22 06:15 97 H 24 110/44 04/23/22 06:00 82 18 113/54 04/23/22 05:45 79 22 121/48 04/23/22 05:30 78 22 112/46 04/23/22 05:15 86 22 102/49 04/23/22 05:00 105 H 15 67/36 04/23/22 04:45 103 H 15 114/49 04/23/22 04:30 92 H 21 114/49 04/23/22 04:15 94 H 23 111/58 04/23/22 04:00 98.3 F 81 72 20 111/58 04/23/22 03:45 83 21 113/47 04/23/22 03:30 78 20 114/46 04/23/22 03:16 95 H 25 H 04/23/22 03:00 78 21 115/40 04/23/22 02:45 81 21 117/49 04/23/22 02:30 77 20 108/47 04/23/22 02:15 91 H 27 H 109/44 04/23/22 02:00 77 20 111/42 04/23/22 01:45 83 22 106/49 04/23/22 01:30 96 H 22 94/55 04/23/22 01:15 75 22 105/47 04/23/22 01:00 73 21 113/53 04/23/22 00:45 76 22 104/50 04/23/22 00:30 73 19 118/59 04/23/22 00:15 73 22 113/51 04/23/22 00:00 74 74 20 112/53 04/22/22 23:45 81 19 106/53 04/22/22 23:30 78 21 109/48 04/22/22 23:15 86 21 100/52 04/22/22 23:13 96.6 F L 88 24 111/49 04/22/22 23:00 74 19 111/49 04/22/22 22:45 81 21 107/51 04/22/22 22:30 88 21 104/49 04/22/22 22:15 88 22 113/53 04/22/22 22:00 89 22 111/51 04/22/22 21:45 92 H 23 106/55 04/22/22 21:30 97 H 22 84/41 04/22/22 21:15 75 19 114/45 04/22/22 21:00 72 42 H 110/52 04/22/22 20:56 04/22/22 20:45 68 19 87/41 04/22/22 20:30 84 22 87/41 04/22/22 20:15 132 H 21 88/40 04/22/22 20:00 127 H 67 22 86/43 04/22/22 19:45 121 H 18 94/50 04/22/22 19:43 96.3 F L 04/22/22 19:30 125 H 24 120/55 04/22/22 19:15 62 20 115/52 04/22/22 19:01 67 19 110/45 04/22/22 18:45 88 25 H 90/42 04/22/22 18:30 100 H 18 86/52 04/22/22 18:15 101 H 15 89/58 04/22/22 18:00 97.5 F L 73 22 112/55 04/22/22 17:45 81 21 94/47 04/22/22 17:30 82 20 98/48 04/22/22 17:15 88 21 89/46 04/22/22 17:00 89 23 111/54 04/22/22 16:47 97.8 F 04/22/22 16:45 80 25 H 111/50 04/22/22 16:30 95 H 27 H 107/55 04/22/22 16:25 78 21 04/22/22 16:15 88 22 96/50 04/22/22 16:00 88 22 91/50 Pulse Ox Pulse Ox 04/23/22 15:00 95 04/23/22 14:45 96 04/23/22 14:30 95 04/23/22 14:15 95 04/23/22 14:00 96 04/23/22 13:47 04/23/22 13:45 96 04/23/22 13:30 96 04/23/22 13:15 96 04/23/22 13:00 96 04/23/22 12:45 96 04/23/22 12:30 96 04/23/22 12:15 96 04/23/22 12:00 95 04/23/22 11:45 96 04/23/22 11:30 96 04/23/22 11:15 97 04/23/22 11:00 97 04/23/22 10:45 96 04/23/22 10:30 96 04/23/22 10:15 96 04/23/22 10:00 95 04/23/22 09:45 95 04/23/22 09:30 97 04/23/22 09:15 95 04/23/22 09:00 95 04/23/22 08:45 93 04/23/22 08:30 94 04/23/22 08:15 100 04/23/22 08:07 04/23/22 08:03 100 04/23/22 08:00 100 04/23/22 07:45 100 04/23/22 07:41 04/23/22 07:30 95 04/23/22 07:15 95 04/23/22 07:00 95 04/23/22 06:45 94 04/23/22 06:30 94 04/23/22 06:15 95 04/23/22 06:00 96 04/23/22 05:45 97 04/23/22 05:30 97 04/23/22 05:15 96 04/23/22 05:00 93 04/23/22 04:45 93 04/23/22 04:30 96 04/23/22 04:15 95 04/23/22 04:00 100 04/23/22 03:45 96 04/23/22 03:30 97 04/23/22 03:16 98 04/23/22 03:00 96 04/23/22 02:45 96 04/23/22 02:30 97 04/23/22 02:15 95 04/23/22 02:00 96 04/23/22 01:45 98 04/23/22 01:30 98 04/23/22 01:15 97 04/23/22 01:00 97 04/23/22 00:45 97 04/23/22 00:30 98 04/23/22 00:15 99 04/23/22 00:00 98 04/22/22 23:45 98 04/22/22 23:30 97 04/22/22 23:15 99 04/22/22 23:13 99 04/22/22 23:00 97 04/22/22 22:45 97 04/22/22 22:30 96 04/22/22 22:15 97 04/22/22 22:00 97 04/22/22 21:45 98 04/22/22 21:30 96 04/22/22 21:15 98 04/22/22 21:00 98 04/22/22 20:56 98 04/22/22 20:45 99 04/22/22 20:30 98 04/22/22 20:15 98 04/22/22 20:00 98 04/22/22 19:45 99 04/22/22 19:43 04/22/22 19:30 99 04/22/22 19:15 100 04/22/22 19:01 100 04/22/22 18:45 98 04/22/22 18:30 96 04/22/22 18:15 99 04/22/22 18:00 100 100 04/22/22 17:45 100 04/22/22 17:30 100 04/22/22 17:15 100 04/22/22 17:00 100 04/22/22 16:47 04/22/22 16:45 100 04/22/22 16:30 97 04/22/22 16:25 98 04/22/22 16:15 98 04/22/22 16:00 98 - Physical Examination General: No Apparent Distress HEENT: Positive: Normocephaly, Mucus Membranes Dry Neck: Positive: trachea midline. Negative: JVD/HJR Cardiac: Positive: Reg Rate and Rhythm, S1/S2 Lungs: Positive: Decreased Breath Sounds (bases) Neuro: Positive: Other (unable to assess) Abdomen: Positive: Soft Skin: Negative: Rash Extremities: Present: upper extr. pulses, Cool. Absent: edema - Labs and Meds CBC 04/23/22 Range/Units 04:10 Hgb 7.3 L (10.1-14.3) gm/dl Hct 23.3 L (30.3-42.9) % Plt Count 291 (140-440) K/mm3 Comprehensive Metabolic Panel 04/23/22 Range/Units 04:10 Sodium 139 (137-145) mmol/L Potassium 3.7 (3.6-5.0) mmol/L Chloride 102.0 (98-107) mmol/L Carbon Dioxide 23 (22-30) mmol/L BUN 36 H (7-17) mg/dL Creatinine 3.4 H (0.6-1.2) mg/dL Glucose 131 H (65-100) mg/dL Calcium 8.6 (8.4-10.2) mg/dL - Imaging and Cardiology EKG: report reviewed, image reviewed Echo: report reviewed (TTE 01/31/2022 - EF 60 to 65%. Doppler flow pattern suggests impaired LV relaxation. Right ventricle systolic function is normal. Trace aortic regurgitation. Trace mitral regurgitation.) - Telemetry EKG Rhythm: Sinus Rhythm - EKG Sinus rhythms and dysrhythmias: sinus tachycardia Repolarization changes or abnormalities: nonspecific abnormality, ST segment, and/or T wave - Allied health notes Allied health notes reviewed: nursing
[2022-04-23] MEDS: HEPARIN/ 0.45% NACL DRIP 25,000 UNIT/500 ML BAG IV SCH ×2 (17:51→21:04)
[2022-04-23] MEDS: QUEtiapine 200 MG TAB PO SCH (21:05)
[2022-04-24] MEDS: IPRATROPIUM/ALBUTEROL SULFATE 3 ML AMPUL.NEB IH SCH ×4 (03:18→20:40)
[2022-04-24 04:28] LABS: Hematocrit 22.6 % (30.3-42.9); Hemoglobin 7.1 gm/dl (10.1-14.3); Mean Corpuscular HGB Conc 32 % (30-34); Mean Corpuscular Volume 91 fl (79-97); Platelet Count 331 K/mm3 (140-440); Red Blood Count 2.48 M/mm3 (3.65-5.03); Red Cell Distribution Width 16.9 % (13.2-15.2)
[2022-04-24 04:43] LABS: Calcium 9.1 mg/dL (8.4-10.2)
[2022-04-24] MEDS: SEVELAMER CARBONATE 800 MG TAB PO SCH ×3 (08:50→17:16)
[2022-04-24] MEDS: MIDODRINE 5 MG TAB PO SCH ×3 (08:50→17:16)
[2022-04-24] MEDS: CLOPIDOGREL 75 MG TAB FEEDTUBE SCH (09:03)
[2022-04-24] MEDS: SENNOSIDES 8.6 MG TAB FEEDTUBE SCH ×2 (09:03→21:10)
[2022-04-24] MEDS: VALPROIC ACID 250 MG/5 ML ORAL LIQD FEEDTUBE SCH ×2 (09:03→21:08)
[2022-04-24] MEDS: QUEtiapine 200 MG TAB PO SCH ×2 (09:03→21:09)
[2022-04-24] MEDS: LANSOPRAZOLE 30 MG SOLUTAB FEEDTUBE SCH (09:03)
[2022-04-24] MEDS: risperiDONE 1 MG TAB PO SCH ×2 (09:07→21:09)
[2022-04-24] MEDS: ACETAMINOPHEN 325 MG/10.15 ML ORAL LIQD UNIT DOSE PO PRN ×2 (09:27→17:55)
[2022-04-24] MEDS ORDERED: MEMANTINE 5 MG TAB FEEDTUBE SCH (10:00)
--- NOTE | 2022-04-24 10:01 | Progress Note ---
Assessment and Plan Impression: * End stage renal disease * AMS * SVT s/p cardioversion * SIRS * NSTEMI * Hypotension * Anemia secondary to ESRD * Secondary hyperparathyroidism Plan: * Will continue hemodialysis prn, last 04/22- plan to continue // if hemodynamically stable * Hold UF removal given soft BP- adjust salt baths and temp prn as well * No need for HD today per labs, clinical assessment * Dose medications for renal function * cardiology/pulmonary notes reviewed, appreciated * continue midodrine given soft BP * keep MAP>65, vasopressors prn * Avoid potential nephrotoxins * Epogen TIW prn * Renal/HD diet * Continue binders prn Subjective Date of service: 04/24/22 Principal diagnosis: AHRF; Shock; AMS; SVT; NSTEMI; ESRD; Protein calorie malnutrition Interval history: Seen in ICU, remains on pressor support (Levophed). Denies any concerning symptoms Objective - Exam Narrative Exam: General: No acute distress Head: NC/AT Eyes: normal appearance Neck: Normal appearance Chest: Clear to auscultation bilaterally CV: Regular rate and rhythm, right arm dialysis access Abdomen: Soft, normal bowel sounds, nontender, nondistended Neuro: alert, oriented, no focal deficits - Vital Signs Vital signs: Vital Signs - 12hr 04/23/22 04/23/22 04/23/22 22:15 22:30 22:45 Temperature Pulse Rate 77 81 81 Pulse Rate [ Anterior Bilateral Throughout] Pulse Rate [ From Monitor] Respiratory 22 22 23 Rate Respiratory Rate [Anterior Bilateral Throughout] Blood Pressure 98/48 98/48 O2 Sat by Pulse 97 96 95 Oximetry 04/23/22 04/23/22 04/23/22 23:00 23:13 23:15 Temperature Pulse Rate 86 80 82 Pulse Rate [ Anterior Bilateral Throughout] Pulse Rate [ From Monitor] Respiratory 23 22 22 Rate Respiratory Rate [Anterior Bilateral Throughout] Blood Pressure 98/53 98/53 98/53 O2 Sat by Pulse 95 96 96 Oximetry 04/23/22 04/23/22 04/24/22 23:30 23:45 00:00 Temperature 98.3 F Pulse Rate 93 H 83 83 Pulse Rate [ Anterior Bilateral Throughout] Pulse Rate [ 95 H From Monitor] Respiratory 18 24 46 H Rate Respiratory Rate [Anterior Bilateral Throughout] Blood Pressure 105/57 105/57 91/41 O2 Sat by Pulse 94 96 96 Oximetry 08/08/22 08/08/22 08/08/22 00:15 00:30 00:45 Temperature Pulse Rate 78 71 72 Pulse Rate [ Anterior Bilateral Throughout] Pulse Rate [ From Monitor] Respiratory 44 H 22 21 Rate Respiratory Rate [Anterior Bilateral Throughout] Blood Pressure 84/42 98/39 107/44 O2 Sat by Pulse 97 98 98 Oximetry 04/24/22 04/24/22 04/24/22 01:00 01:15 01:30 Temperature Pulse Rate 73 84 82 Pulse Rate [ Anterior Bilateral Throughout] Pulse Rate [ From Monitor] Respiratory 47 H 28 H 25 H Rate Respiratory Rate [Anterior Bilateral Throughout] Blood Pressure 105/48 111/52 103/45 O2 Sat by Pulse 96 97 95 Oximetry 04/24/22 04/24/22 04/24/22 01:45 02:00 02:15 Temperature Pulse Rate 77 74 96 H Pulse Rate [ Anterior Bilateral Throughout] Pulse Rate [ From Monitor] Respiratory 25 H 23 22 Rate Respiratory Rate [Anterior Bilateral Throughout] Blood Pressure 95/41 90/40 107/60 O2 Sat by Pulse 91 92 92 Oximetry 04/24/22 04/24/22 04/24/22 02:30 02:45 03:00 Temperature Pulse Rate 92 H 90 92 H Pulse Rate [ Anterior Bilateral Throughout] Pulse Rate [ From Monitor] Respiratory 25 H 25 H 16 Rate Respiratory Rate [Anterior Bilateral Throughout] Blood Pressure 110/56 114/54 114/56 O2 Sat by Pulse 95 94 96 Oximetry 04/24/22 04/24/22 04/24/22 03:15 03:30 03:45 Temperature Pulse Rate 88 76 74 Pulse Rate [ Anterior Bilateral Throughout] Pulse Rate [ From Monitor] Respiratory 24 22 23 Rate Respiratory Rate [Anterior Bilateral Throughout] Blood Pressure 115/54 103/51 110/48 O2 Sat by Pulse 96 96 96 Oximetry 04/24/22 04/24/22 04/24/22 04:00 04:15 04:31 Temperature 99 F Pulse Rate 76 86 91 H Pulse Rate [ Anterior Bilateral Throughout] Pulse Rate [ 96 H From Monitor] Respiratory 23 23 21 Rate Respiratory Rate [Anterior Bilateral Throughout] Blood Pressure 100/45 119/56 113/47 O2 Sat by Pulse 96 90 97 Oximetry 04/24/22 04/24/22 04/24/22 04:45 05:00 05:15 Temperature Pulse Rate 83 78 93 H Pulse Rate [ Anterior Bilateral Throughout] Pulse Rate [ From Monitor] Respiratory 25 H 24 20 Rate Respiratory Rate [Anterior Bilateral Throughout] Blood Pressure 114/53 102/45 91/55 O2 Sat by Pulse 95 95 95 Oximetry 04/24/22 04/24/22 04/24/22 05:30 05:45 06:00 Temperature Pulse Rate 90 94 H 89 Pulse Rate [ Anterior Bilateral Throughout] Pulse Rate [ From Monitor] Respiratory 11 L 18 21 Rate Respiratory Rate [Anterior Bilateral Throughout] Blood Pressure 111/58 118/59 110/58 O2 Sat by Pulse 96 95 96 Oximetry 04/24/22 04/24/22 04/24/22 06:15 06:30 06:45 Temperature Pulse Rate 91 H 72 72 Pulse Rate [ Anterior Bilateral Throughout] Pulse Rate [ From Monitor] Respiratory 17 23 24 Rate Respiratory Rate [Anterior Bilateral Throughout] Blood Pressure 112/63 112/52 115/56 O2 Sat by Pulse 95 96 95 Oximetry 04/24/22 04/24/22 04/24/22 07:00 07:34 09:27 Temperature Pulse Rate 77 Pulse Rate [ 94 H Anterior Bilateral Throughout] Pulse Rate [ From Monitor] Respiratory 24 23 Rate Respiratory 18 Rate [Anterior Bilateral Throughout] Blood Pressure 125/53 O2 Sat by Pulse 91 Oximetry - Lab 04/24/22 04:00 04/24/22 04:00 Most recent lab results Calcium 9.1 mg/dL (8.4-10.2) 04/24/22 04:00 Phosphorus 2.50 mg/dL (2.5-4.5) 04/24/22 04:00 Magnesium 1.80 mg/dL (1.7-2.3) 04/24/22 04:00 Medications & Allergies - Medications Allergies/Adverse Reactions: Allergies buspirone [From BuSpar] Allergy (Verified 04/18/22 12:22) Unknown Penicillins Allergy (Verified 04/18/22 12:22) Rash corn Adverse Reaction (Verified 04/18/22 12:22) Unknown Home Medications: Home Medications Medication Instructions Recorded Confirmed Last Taken Type Sevelamer Carbonate [Renvela] 0.8 gram PO TIDWM 09/02/20 02/02/22 05/31/21 History HYDROcodone/APAP 5-325 [Baxter 1 each PO Q4HR PRN #30 tablet 05/18/21 02/02/22 Unknown Rx 5-325 mg TAB] ALBUTEROL NEB's [Proventil 0.083% 2.5 mg IH Q3HRT PRN #1 nebu 03/03/22 Unknown Rx NEBS] Clopidogrel [Plavix] 75 mg PO QDAY #90 tablet 03/03/[address] [Depakote Dr] 750 mg PO BID #60 tablet 03/03/22 Unknown Rx LORazepam [Ativan] 1 mg PO DAILY #30 tab 03/03/22 Unknown Rx Memantine Xr [Namenda Xr] 5 mg PO DAILY #30 cap 03/03/22 Unknown Rx Midodrine [Proamatine] 10 mg PO TID #90 tab 03/03/22 Unknown Rx Pantoprazole [Protonix TAB] 40 mg PO DAILY #30 tab 03/03/22 Unknown Rx QUEtiapine [SEROquel] 400 mg PO BID #60 tab 03/03/22 Unknown Rx risperiDONE [RisperDAL] 0.5 mg PO BID #60 tab 03/03/22 Unknown Rx Active Medications: Generic Name Dose Route Start Last Admin Trade Name Freq PRN Reason Stop Dose Admin Acetaminophen 650 mg 04/22/22 20:12 04/24/22 09:27 Acetaminophen 325 Mg/10.15 Ml Oral Liqd Unit Dose PO 650 mg Q6H PRN Administration Pain MILD(1-3)/Fever >100.5/DRAKE Albumin Human 25 gm 04/21/22 13:00 04/22/22 16:31 Albumin Human 25% (25 Gm/100 Ml) Inj IV 25 gm BIANCA PRN Administration Hypotension Albuterol 2.5 mg 04/21/22 08:30 Albuterol 2.5 Mg/3 Ml Nebu IH Q3HRT PRN Shortness Of Breath Albuterol/Ipratropium 1 ampul 04/21/22 14:00 04/24/22 07:31 Ipratropium/Albuterol Sulfate 3 Ml Ampul.Neb IH 1 ampul TIDRT CONNOR Administration Clopidogrel Bisulfate 75 mg 04/23/22 10:00 04/24/22 09:03 Clopidogrel 75 Mg Tab FEEDTUBE 75 mg QDAY CONNOR Administration Epoetin Lb-epbx 20,000 unit 04/23/22 12:00 Epoetin Lb-Epbx 20,000 Unit/1 Ml Vial IV BIANCA PRN HEMODIALYSIS NORepinephrine/NS 8 MG-250 ML 8 mg in 250 mls @ 3.75 mls/hr 04/19/22 09:00 04/24/22 09:30 Norepinephrine/Ns 8 Mg-250 Ml (Double Conc) IV 4 mcg/min TITRATE CONNOR 7.5 mls/hr Titration Protocol 2 MCG/MIN Heparin Sodium/Sodium Chloride 25,000 unit in 500 mls @ 15 mls/hr 04/19/22 18:00 04/24/22 02:38 Heparin/ 0.45% Nacl-25,000 Unit/500 Ml IV 900 units/hr TITR CONNOR 18 mls/hr Titration Protocol 750 UNITS/HR Sodium Chloride 100 mls @ 999 mls/hr 04/22/22 09:12 Nacl 0.9% IV BIANCA PRN Hypotension Lansoprazole 30 mg 04/23/22 10:00 04/24/22 09:03 Lansoprazole 30 Mg Solutab FEEDTUBE 30 mg QDAY CONNOR Administration Lorazepam 0.5 mg 04/22/22 19:07 Lorazepam 0.5 Mg Tab PO QDAY PRN Anxiety Memantine 5 mg 04/24/22 10:00 Memantine 10 Mg Tab FEEDTUBE 04/24/22 22:01 BID CONNOR Memantine 5 mg 04/25/22 10:00 Memantine 5 Mg Tab FEEDTUBE BID CONNOR Metoclopramide HCl 5 mg 04/19/22 09:55 Metoclopramide 10 Mg/2 Ml Inj IV Q6H PRN Nausea And Vomiting Midodrine 15 mg 04/20/22 13:00 04/24/22 08:50 Midodrine 5 Mg Tab PO 15 mg 0800,1300,1800 CONNOR Administration Naloxone HCl 0.1 mg 04/19/22 09:55 Naloxone 0.4 Mg/1 Ml Inj IV Q2MIN PRN Res Rate </= 8 or 02 SAT < 92% Quetiapine Fumarate 200 mg 04/23/22 22:00 04/24/22 09:03 Quetiapine 200 Mg Tab PO 200 mg BID CONNOR Administration Risperidone 0.5 mg 04/19/22 12:00 04/24/22 09:07 Risperidone 1 Mg Tab PO 0.5 mg BID CONNOR Administration Senna 17.2 mg 04/23/22 10:00 04/24/22 09:03 Sennosides 8.6 Mg Tab FEEDTUBE 17.2 mg BID CONNOR Administration Sevelamer Carbonate 800 mg 04/19/22 12:00 04/24/22 08:50 Sevelamer Carbonate 800 Mg Tab PO 800 mg TIDWM CONNOR Administration Sodium Chloride 10 ml 04/19/22 12:00 04/24/22 09:08 Sodium Chloride 0.9% 10 Ml Flush Syringe IV 10 ml BID CONNOR Administration Sodium Chloride 10 ml 04/19/22 11:19 Sodium Chloride 0.9% 10 Ml Flush Syringe IV PRN PRN LINE FLUSH Valproic Acid 750 mg 04/22/22 22:00 04/24/22 09:03 Valproic Acid 250 Mg/5 Ml Oral Liqd FEEDTUBE 750 mg BID CONNOR Administration
[2022-04-24] MEDS: MEMANTINE 10 MG TAB FEEDTUBE SCH ×2 (10:08→21:08)
--- NOTE | 2022-04-24 12:18 | Progress Note ---
Assessment and Plan Acute hypoxemic respiratory failure, Acute on Chronic Hypotension Acute on Chronic Metabolic Encephalopathy Possible Shock Syndrome SVT Elevated troponin, Bipolar disorder, Schizophrenia, Hyperkalemia ESRD on hemodialysis, Anemia of chronic disease, Type 2 NSTEMI GERD Subclinical Hypothyroidism Moderate protein caloric malnutrition - continue enteral nutrition at goal rate as tolerated - she may need a PEG (states she was having swallowing difficulties pre- admission) - RN to stop Levophed - target MAP >/= 60 mmHg and follow clinically - Albumin 25 gms of 25% solution prn MAP < 60 mmHg - continue HD/UF per nephrology prescription for toxin and volume clearance - continue Midodrine but at 15 mg p.o. tid for BP support - wean Levophed for target MAP > 65 mmHg - continue care as below otherwise; - continue accuchecks with glycemic control per SSI (While critically ill target blood glucose of 140-180 mg/dL; avoid hypoglycemia) - continue supplemental oxygen for target O2 sat's > 90% acutely - aspiration precautions - prn bronchodilators with pulmonary hygiene per RT - avoid nephrotoxins, renally dose all medications - continue to avoid benzodiazepine's, reduce the possibility of delirium - AB's per ID rec's - prn analgesia per pain score - Maintenance of sleep-wake cycle, avoid delirium - G.I. & VTE prophylaxis - PT/OT/ROM exercises - continue mobility protocols for pressure ulcer prophylaxis - Monitor hemodynamics closely - continue other care per attending / other consultants - discharge planning ongoing concurrently .... Re-evaluate in am & prn CONDITION: CRITICAL PROGNOSIS: GUARDED CODE STATUS: FULL CODE The high probability of a clinically significant, sudden or life-threatening deterioration of the [respiratory, cardiovascular, renal & neurologic] system(s) required my full and direct attention, intervention and personal management. The aggregate critical care time was [35] minutes without overlap. Time includes spent on; [x] Data Review and interpretation [x] Patient assessment and monitoring of vital signs [x] Documentation [x] Medication orders and management Subjective Date of service: 04/24/22 Principal diagnosis: AHRF; Shock; AMS; SVT; NSTEMI; ESRD; Protein calorie malnutrition Interval history: Patient is seen today for: Acute hypoxemic respiratory failure; Shock / Hypotension; AMS; SVT; NSTEMI; Schizophrenia; ESRD on Dialysis; Moderate protein caloric malnutrition Seen and examined at bedside; 24hour events reviewed; nursing and respiratory care staff consulted; no adverse overnight events reported to me; resting in bed; remains on Levophed drip but at 2 artem's/min; she denies chest pains or SOB; she is alert and oriented; no N/V/F/C; failed [employer] evaluation and now on tube feeds Objective Vital Signs - 12hr 04/24/22 04/24/22 04/24/22 00:30 00:45 01:00 Temperature Pulse Rate 71 72 73 Pulse Rate [ Anterior Bilateral Throughout] Pulse Rate [ From Monitor] Respiratory 22 21 47 H Rate Respiratory Rate [Anterior Bilateral Throughout] Blood Pressure 98/39 107/44 105/48 O2 Sat by Pulse 98 98 96 Oximetry 04/24/22 04/24/22 04/24/22 01:15 01:30 01:45 Temperature Pulse Rate 84 82 77 Pulse Rate [ Anterior Bilateral Throughout] Pulse Rate [ From Monitor] Respiratory 28 H 25 H 25 H Rate Respiratory Rate [Anterior Bilateral Throughout] Blood Pressure 111/52 103/45 95/41 O2 Sat by Pulse 97 95 91 Oximetry 04/24/22 04/24/22 04/24/22 02:00 02:15 02:30 Temperature Pulse Rate 74 96 H 92 H Pulse Rate [ Anterior Bilateral Throughout] Pulse Rate [ From Monitor] Respiratory 23 22 25 H Rate Respiratory Rate [Anterior Bilateral Throughout] Blood Pressure 90/40 107/60 110/56 O2 Sat by Pulse 92 92 95 Oximetry 04/24/22 04/24/22 04/24/22 02:45 03:00 03:15 Temperature Pulse Rate 90 92 H 88 Pulse Rate [ Anterior Bilateral Throughout] Pulse Rate [ From Monitor] Respiratory 25 H 16 24 Rate Respiratory Rate [Anterior Bilateral Throughout] Blood Pressure 114/54 114/56 115/54 O2 Sat by Pulse 94 96 96 Oximetry 04/24/22 04/24/22 04/24/22 03:30 03:45 04:00 Temperature 99 F Pulse Rate 76 74 76 Pulse Rate [ Anterior Bilateral Throughout] Pulse Rate [ 96 H From Monitor] Respiratory 22 23 23 Rate Respiratory Rate [Anterior Bilateral Throughout] Blood Pressure 103/51 110/48 100/45 O2 Sat by Pulse 96 96 96 Oximetry 04/24/22 04/24/22 04/24/22 04:15 04:31 04:45 Temperature Pulse Rate 86 91 H 83 Pulse Rate [ Anterior Bilateral Throughout] Pulse Rate [ From Monitor] Respiratory 23 21 25 H Rate Respiratory Rate [Anterior Bilateral Throughout] Blood Pressure 119/56 113/47 114/53 O2 Sat by Pulse 90 97 95 Oximetry 04/24/22 04/24/22 04/24/22 05:00 05:15 05:30 Temperature Pulse Rate 78 93 H 90 Pulse Rate [ Anterior Bilateral Throughout] Pulse Rate [ From Monitor] Respiratory 24 20 11 L Rate Respiratory Rate [Anterior Bilateral Throughout] Blood Pressure 102/45 91/55 111/58 O2 Sat by Pulse 95 95 96 Oximetry 04/24/22 04/24/22 04/24/22 05:45 06:00 06:15 Temperature Pulse Rate 94 H 89 91 H Pulse Rate [ Anterior Bilateral Throughout] Pulse Rate [ From Monitor] Respiratory 18 21 17 Rate Respiratory Rate [Anterior Bilateral Throughout] Blood Pressure 118/59 110/58 112/63 O2 Sat by Pulse 95 96 95 Oximetry 04/24/22 04/24/22 04/24/22 06:30 06:45 07:00 Temperature Pulse Rate 72 72 77 Pulse Rate [ Anterior Bilateral Throughout] Pulse Rate [ From Monitor] Respiratory 23 24 24 Rate Respiratory Rate [Anterior Bilateral Throughout] Blood Pressure 112/52 115/56 125/53 O2 Sat by Pulse 96 95 91 Oximetry 04/24/22 04/24/22 04/24/22 07:15 07:30 07:34 Temperature Pulse Rate 101 H 96 H Pulse Rate [ 94 H Anterior Bilateral Throughout] Pulse Rate [ From Monitor] Respiratory 14 18 Rate Respiratory 18 Rate [Anterior Bilateral Throughout] Blood Pressure 112/57 105/55 O2 Sat by Pulse 95 100 Oximetry 04/24/22 04/24/22 04/24/22 07:45 08:00 08:15 Temperature 99.2 F Pulse Rate 95 H 98 H 96 H Pulse Rate [ Anterior Bilateral Throughout] Pulse Rate [ 92 H From Monitor] Respiratory 16 20 23 Rate Respiratory Rate [Anterior Bilateral Throughout] Blood Pressure 99/45 94/52 101/55 O2 Sat by Pulse 96 95 95 Oximetry 04/24/22 04/24/22 04/24/22 08:30 08:45 09:00 Temperature Pulse Rate 92 H 95 H 93 H Pulse Rate [ Anterior Bilateral Throughout] Pulse Rate [ From Monitor] Respiratory 17 18 20 Rate Respiratory Rate [Anterior Bilateral Throughout] Blood Pressure 103/49 104/56 104/52 O2 Sat by Pulse 95 96 96 Oximetry 04/24/22 04/24/22 04/24/22 09:15 09:27 09:30 Temperature Pulse Rate 94 H 98 H Pulse Rate [ Anterior Bilateral Throughout] Pulse Rate [ From Monitor] Respiratory 14 23 19 Rate Respiratory Rate [Anterior Bilateral Throughout] Blood Pressure 104/52 105/54 O2 Sat by Pulse 94 94 Oximetry 04/24/22 04/24/22 04/24/22 09:45 10:00 10:15 Temperature Pulse Rate 90 92 H 96 H Pulse Rate [ Anterior Bilateral Throughout] Pulse Rate [ From Monitor] Respiratory 24 22 22 Rate Respiratory Rate [Anterior Bilateral Throughout] Blood Pressure 118/51 100/55 103/54 O2 Sat by Pulse 96 96 92 Oximetry 04/24/22 10:30 Temperature Pulse Rate 97 H Pulse Rate [ Anterior Bilateral Throughout] Pulse Rate [ From Monitor] Respiratory 24 Rate Respiratory Rate [Anterior Bilateral Throughout] Blood Pressure 108/53 O2 Sat by Pulse 97 Oximetry Constitutional: no acute distress Eyes: non-icteric ENT: oropharynx moist Neck: supple, no lymphadenopathy, no JVD Effort: normal Ascultation: Bilateral: clear, diminished breath sounds Percussion: Bilateral: not dull Cardiovascular: regular rate and rhythm Gastrointestinal: normoactive bowel sounds, soft, non-tender, non-distended Integumentary: normal Extremities: no cyanosis, no edema, pulses normal, no ischemia or petechiae Neurologic: non-focal exam (grossly), pupils equal and round, CN II-XII normal, motor strength normal and Psychiatric: mood appropriate, affect normal CBC and BMP: 04/24/22 04:00 04/24/22 04:00 ABG, PT/INR, D-dimer: PT/INR, D-dimer PT 17.9 Sec. (12.2-14.9) H 04/19/22 19:40 INR 1.28 (0.87-1.13) H 04/19/22 19:40 Abnormal lab findings: Abnormal Labs 04/19/22 04/19/22 04/19/22 04:53 04:53 04:53 WBC RBC 3.06 L Hgb 8.6 L Hct 28.0 L RDW 16.3 H Crane % (Auto) 11.3 H Lymph # (Auto) PT INR APTT Heparin Anti-Xa Level Sodium Potassium 5.1 H Carbon Dioxide 21 L BUN 94 H Creatinine 6.3 H Glucose POC Glucose Phosphorus Magnesium Troponin T 0.415 H* Albumin 2.7 L Free T4 0.28 L 04/19/22 04/19/22 04/20/22 19:40 19:40 05:30 WBC 4.1 L RBC 2.97 L Hgb 8.5 L 8.2 L Hct 27.8 L 27.1 L RDW 17.0 H Crane % (Auto) 15.2 H Lymph # (Auto) 1.1 L PT 17.9 H INR 1.28 H APTT 199.1 H* Heparin Anti-Xa Level Sodium Potassium Carbon Dioxide BUN Creatinine Glucose POC Glucose Phosphorus Magnesium Troponin T Albumin Free T4 04/20/22 04/20/22 04/21/22 05:30 18:23 00:29 WBC RBC Hgb Hct RDW Crane % (Auto) Lymph # (Auto) PT INR APTT Heparin Anti-Xa Level 0.17 L Sodium Potassium Carbon Dioxide 21 L BUN 95 H Creatinine 6.6 H Glucose 139 H POC Glucose Phosphorus Magnesium 2.60 H Troponin T Albumin 2.4 L Free T4 04/21/22 04/21/22 04/22/22 04:00 04:00 03:45 WBC RBC 2.74 L Hgb 7.7 L Hct 24.7 L RDW 16.6 H Crane % (Auto) Lymph # (Auto) PT INR APTT Heparin Anti-Xa Level < 0.10 L Sodium 133 L Potassium Carbon Dioxide 20 L BUN 89 H Creatinine 6.6 H Glucose 131 H POC Glucose Phosphorus 6.40 H Magnesium 2.50 H Troponin T Albumin Free T4 04/22/22 04/22/22 04/22/22 03:45 12:13 14:30 WBC RBC Hgb Hct RDW Crane % (Auto) Lymph # (Auto) PT INR APTT Heparin Anti-Xa Level 0.11 L 0.11 L Sodium 136 L Potassium Carbon Dioxide 18 L BUN 90 H Creatinine 6.3 H Glucose 121 H POC Glucose Phosphorus 6.50 H Magnesium Troponin T Albumin Free T4 04/22/22 04/23/22 04/23/22 23:08 02:17 04:10 WBC RBC Hgb 7.3 L Hct 23.3 L RDW Crane % (Auto) Lymph # (Auto) PT INR APTT Heparin Anti-Xa Level 0.14 L Sodium Potassium Carbon Dioxide BUN Creatinine Glucose POC Glucose 153 H Phosphorus Magnesium Troponin T Albumin Free T4 04/23/22 04/23/22 04/23/22 04:10 06:09 23:22 WBC RBC Hgb Hct RDW Crane % (Auto) Lymph # (Auto) PT INR APTT Heparin Anti-Xa Level Sodium Potassium Carbon Dioxide BUN 36 H Creatinine 3.4 H Glucose 131 H POC Glucose 141 H 114 H Phosphorus Magnesium Troponin T Albumin Free T4 04/24/22 04/24/22 04/24/22 02:10 04:00 04:00 WBC RBC 2.48 L Hgb 7.1 L Hct 22.6 L RDW 16.9 H Crane % (Auto) Lymph # (Auto) PT INR APTT Heparin Anti-Xa Level 0.12 L Sodium 134 L Potassium Carbon Dioxide BUN 42 H Creatinine 3.9 H Glucose 141 H POC Glucose Phosphorus Magnesium Troponin T Albumin Free T4 04/24/22 04/24/22 04/24/22 05:03 10:20 11:24 WBC RBC Hgb Hct RDW Crane % (Auto) Lymph # (Auto) PT INR APTT Heparin Anti-Xa Level < 0.10 L Sodium Potassium Carbon Dioxide BUN Creatinine Glucose POC Glucose 142 H 144 H Phosphorus Magnesium Troponin T Albumin Free T4 Allied health notes reviewed: nursing
--- NOTE | 2022-04-24 13:37 | Progress Note ---
Assessment and Plan Patient is a 66-year-old female with a past medical history of end-stage renal disease on hemodialysis, hypertension, seizure disorder, bipolar disorder, schizophrenia, anxiety, limited mobility, and vascular dementia who presented to the ED from [facility] with report of altered mental status for several days AMS End-stage renal disease on hemodialysis-nephrology following SVT Hypotension -currently on pressors Schizophrenia Vascular dementia Bipolar disorder Hypotension Echo 01/31/2022-EF 60 to 65%. Doppler flow pattern suggests impaired LV relaxation. Right ventricle systolic function is normal trace aortic regurgitation. Trace mitral regurgitation. Plan: Telemetry reviewed patient remains in sinus rhythm Patient's hemoglobin noted to drop will stop anticoagulation with heparin at this and continue to monitor H&H closely Due to patient's mental status and comorbidities recommend conservative management No MARGOTH, ARB, beta-hernan due to hypotension and currently requiring pressors. Wean pressors as tolerated Patient currently in sinus rhythm and has history of hypotension. Suspect hypotension is not of cardiac origin Agree with midodrine Defer volume management to nephrology due to patient renal function Pt seen in conjunction with Dr. Mojica, who agrees with the assessment and plan of care. - Patient Problems (1) Altered mental status Current Visit: Yes Status: Acute (2) Elevated troponin Current Visit: Yes Status: Acute (3) Uremic encephalopathy Current Visit: Yes Status: Acute (4) ESRD (end stage renal disease) on dialysis Current Visit: Yes Status: Chronic (5) Hypotension Current Visit: Yes Status: Chronic Qualifiers: (6) Schizophrenia Current Visit: Yes Status: Chronic Qualifiers: (7) Acute encephalopathy Current Visit: No Status: Acute (8) Bipolar disorder Current Visit: No Status: Acute (9) Cerebral atherosclerosis Current Visit: Yes Status: Chronic (10) Atrial fibrillation with RVR Current Visit: Yes Status: Acute (11) SVT (supraventricular tachycardia) Current Visit: Yes Status: Acute (12) Type 2 myocardial infarction Current Visit: Yes Status: Acute Subjective Date of service: 04/24/22 Principal diagnosis: AHRF; Shock; AMS; SVT; NSTEMI; ESRD; Protein calorie malnutrition Interval history: Patient resting in bed in no acute distress. Patients mental status seems imporved Patient in sinus rhythm 80s to 90s Objective Vital Signs Temp Pulse Pulse Pulse Resp Resp BP 04/24/22 10:30 97 H 24 108/53 04/24/22 10:27 15 04/24/22 10:15 96 H 22 103/54 04/24/22 10:00 92 H 22 100/55 04/24/22 09:45 90 24 118/51 04/24/22 09:30 98 H 19 105/54 04/24/22 09:27 23 04/24/22 09:15 94 H 14 104/52 04/24/22 09:00 93 H 20 104/52 04/24/22 08:45 95 H 18 104/56 04/24/22 08:30 92 H 17 103/49 04/24/22 08:15 96 H 23 101/55 04/24/22 08:00 99.2 F 98 H 92 H 20 94/52 04/24/22 07:45 95 H 16 99/45 04/24/22 07:34 94 H 18 04/24/22 07:30 96 H 18 105/55 04/24/22 07:15 101 H 14 112/57 04/24/22 07:00 77 24 125/53 04/24/22 06:45 72 24 115/56 04/24/22 06:30 72 23 112/52 04/24/22 06:15 91 H 17 112/63 04/24/22 06:00 89 21 110/58 04/24/22 05:45 94 H 18 118/59 04/24/22 05:30 90 11 L 111/58 04/24/22 05:15 93 H 20 91/55 04/24/22 05:00 78 24 102/45 04/24/22 04:45 83 25 H 114/53 04/24/22 04:31 91 H 21 113/47 04/24/22 04:15 86 23 119/56 04/24/22 04:00 99 F 76 96 H 23 100/45 04/24/22 03:45 74 23 110/48 04/24/22 03:30 76 22 103/51 04/24/22 03:15 88 24 115/54 04/24/22 03:00 92 H 16 114/56 04/24/22 02:45 90 25 H 114/54 04/24/22 02:30 92 H 25 H 110/56 04/24/22 02:15 96 H 22 107/60 04/24/22 02:00 74 23 90/40 04/24/22 01:45 77 25 H 95/41 04/24/22 01:30 82 25 H 103/45 04/24/22 01:15 84 28 H 111/52 04/24/22 01:00 73 47 H 105/48 04/24/22 00:45 72 21 107/44 04/24/22 00:30 71 22 98/39 04/24/22 00:15 78 44 H 84/42 04/24/22 00:00 98.3 F 83 95 H 46 H 91/41 04/23/22 23:45 83 24 105/57 04/23/22 23:30 93 H 18 105/57 04/23/22 23:15 82 22 98/53 04/23/22 23:13 80 22 98/53 04/23/22 23:00 86 23 98/53 04/23/22 22:45 81 23 98/48 04/23/22 22:30 81 22 98/48 04/23/22 22:15 77 22 04/23/22 22:00 77 23 84/42 04/23/22 21:45 94 H 18 84/42 04/23/22 21:30 79 19 88/42 04/23/22 21:15 79 24 106/51 04/23/22 21:00 84 26 H 106/51 04/23/22 20:45 97 H 20 101/47 04/23/22 20:30 89 25 H 101/47 04/23/22 20:15 89 22 95/49 04/23/22 20:00 89 19 95/49 04/23/22 19:45 89 23 107/53 04/23/22 19:30 91 H 22 107/53 04/23/22 19:29 93 H 20 04/23/22 19:17 99.1 F 04/23/22 19:15 94 H 25 H 103/43 04/23/22 19:00 91 H 19 103/43 04/23/22 18:45 89 21 107/50 04/23/22 18:30 90 21 107/50 04/23/22 18:15 98 H 22 99/53 04/23/22 18:00 93 H 24 90/41 04/23/22 17:45 86 22 90/41 04/23/22 17:31 85 24 90/41 04/23/22 17:15 90 18 93/49 04/23/22 17:00 88 17 93/49 04/23/22 16:45 88 20 93/50 04/23/22 16:40 99.4 F 04/23/22 16:30 95 H 90 12 93/50 04/23/22 16:15 89 19 97/51 04/23/22 16:00 90 21 97/51 04/23/22 15:45 84 21 90/46 04/23/22 15:30 85 23 90/46 04/23/22 15:15 92 H 25 H 89/60 04/23/22 15:00 94 H 24 89/60 04/23/22 14:45 97 H 21 87/50 04/23/22 14:30 87 22 87/50 04/23/22 14:15 86 23 111/48 04/23/22 14:00 87 23 111/48 04/23/22 13:47 98.0 F 04/23/22 13:45 94 H 25 H 105/56 Pulse Ox 04/24/22 10:30 97 04/24/22 10:27 04/24/22 10:15 92 04/24/22 10:00 97 04/24/22 09:45 96 04/24/22 09:30 94 04/24/22 09:27 04/24/22 09:15 94 04/24/22 09:00 96 04/24/22 08:45 96 04/24/22 08:30 95 04/24/22 08:15 95 04/24/22 08:00 95 04/24/22 07:45 96 04/24/22 07:34 04/24/22 07:30 100 04/24/22 07:15 95 04/24/22 07:00 91 04/24/22 06:45 95 04/24/22 06:30 96 04/24/22 06:15 95 04/24/22 06:00 96 04/24/22 05:45 95 04/24/22 05:30 96 04/24/22 05:15 95 04/24/22 05:00 95 04/24/22 04:45 95 04/24/22 04:31 97 04/24/22 04:15 90 04/24/22 04:00 96 04/24/22 03:45 96 04/24/22 03:30 96 04/24/22 03:15 96 04/24/22 03:00 96 04/24/22 02:45 94 04/24/22 02:30 95 04/24/22 02:15 92 04/24/22 02:00 92 04/24/22 01:45 91 04/24/22 01:30 95 04/24/22 01:15 97 04/24/22 01:00 96 04/24/22 00:45 98 04/24/22 00:30 98 04/24/22 00:15 97 04/24/22 00:00 96 04/23/22 23:45 96 04/23/22 23:30 94 04/23/22 23:15 96 04/23/22 23:13 96 04/23/22 23:00 95 04/23/22 22:45 95 04/23/22 22:30 96 04/23/22 22:15 97 04/23/22 22:00 99 04/23/22 21:45 99 04/23/22 21:30 96 04/23/22 21:15 97 04/23/22 21:00 94 04/23/22 20:45 94 04/23/22 20:30 96 04/23/22 20:15 96 04/23/22 20:00 98 04/23/22 19:45 96 04/23/22 19:30 96 04/23/22 19:29 97 04/23/22 19:17 04/23/22 19:15 98 04/23/22 19:00 97 04/23/22 18:45 97 04/23/22 18:30 97 04/23/22 18:15 96 04/23/22 18:00 92 04/23/22 17:45 93 04/23/22 17:31 93 04/23/22 17:15 97 04/23/22 17:00 96 04/23/22 16:45 98 04/23/22 16:40 04/23/22 16:30 96 04/23/22 16:15 98 04/23/22 16:00 96 04/23/22 15:45 96 04/23/22 15:30 95 04/23/22 15:15 94 04/23/22 15:00 95 04/23/22 14:45 96 04/23/22 14:30 95 04/23/22 14:15 95 04/23/22 14:00 96 04/23/22 13:47 04/23/22 13:45 96 - Physical Examination General: No Apparent Distress HEENT: Positive: Normocephaly, Mucus Membranes Dry Neck: Positive: trachea midline. Negative: JVD/HJR Cardiac: Positive: Reg Rate and Rhythm Lungs: Positive: Normal Breath Sounds Neuro: Positive: Other (unable to assess) Abdomen: Positive: Soft Skin: Negative: Rash Extremities: Present: upper extr. pulses, Cool. Absent: edema - Labs and Meds CBC 04/24/22 Range/Units 04:00 WBC 5.8 (4.5-11.0) K/mm3 RBC 2.48 L (3.65-5.03) M/mm3 Hgb 7.1 L (10.1-14.3) gm/dl Hct 22.6 L (30.3-42.9) % Plt Count 331 (140-440) K/mm3 Comprehensive Metabolic Panel 04/24/22 Range/Units 04:00 Sodium 134 L (137-145) mmol/L Potassium 3.6 (3.6-5.0) mmol/L Chloride 98.0 (98-107) mmol/L Carbon Dioxide 24 (22-30) mmol/L BUN 42 H (7-17) mg/dL Creatinine 3.9 H (0.6-1.2) mg/dL Glucose 141 H (65-100) mg/dL Calcium 9.1 (8.4-10.2) mg/dL - Imaging and Cardiology EKG: report reviewed, image reviewed Echo: report reviewed (TTE 01/31/2022 - EF 60 to 65%. Doppler flow pattern suggests impaired LV relaxation. Right ventricle systolic function is normal. Trace aortic regurgitation. Trace mitral regurgitation.) - Telemetry EKG Rhythm: Sinus Rhythm - EKG Sinus rhythms and dysrhythmias: sinus tachycardia Repolarization changes or abnormalities: nonspecific abnormality, ST segment, and/or T wave - Allied health notes Allied health notes reviewed: nursing
--- NOTE | 2022-04-24 16:51 | Ultrasound Report ---
US chest INDICATION / CLINICAL INFORMATION: Moderate Right Pleural Effusion. COMPARISON: Chest radiograph 04/22/2022. TECHNIQUE: Limited grayscale imaging of the chest to evaluate pleural effusion. FINDINGS: Moderate pleural effusions are visualized bilaterally measuring approximately 207 mL on the left and 244 mL on the right. IMPRESSION: 1. Bilateral pleural effusions, right greater than left. Scribed by: Gwendolyn Chambers RDMS, JAG, ALEXANDRA Scribed: 04/24/2022 1:32 PM I have reviewed the images, agree with this report, and edited this report as needed. Signer Name: Forrest Aguilar MD Signed: 04/24/2022 4:47 PM Workstation Name: [id number]
--- NOTE | 2022-04-24 17:12 | Progress Note ---
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, SVT Neuro: h/o vascular dementia, schizophrenia, bipolar, anxiety disorder -Continue home Seroquel -As needed Ativan -Reorientation as needed -Maintain sleep-wake cycle -aspiration/seizure precautions -As needed analgesia -Continue home memantine, Seroquel, respiratory, valproic acid -CT head showed no acute intracranial normalities, no significant interval changes -psych consulted, appreciate recommendations Cardiac: SVT s/p cardioversion, chronic hypotension, NSTEMI type II -Cardiology consulted, appreciate recommendations -Blood pressure monitoring per protocol -Vasopressor support with Levophed -MAP goal 60 -Continue home midodrine -Echo 01/31/2022-EF 60 to 65%. Doppler flow pattern suggests impaired LV relaxation. Right ventricle systolic function is normal trace aortic regurgitation. Trace mitral regurgitation. -Echocardiogram pending -Lipitor, Plavix Respiratory: Acute hypoxic respiratory failure -CCM consulted, appreciate recommendations -Chest ultrasound shows bilateral pleural effusions, right greater than left -Supplemental oxygen as needed -Pulmonary hygiene -SPO2 monitor per protocol GI: Moderate protein calorie malnutrition -24 hours +875 -PPI -Renal diet -BR: Senokot : ESRD on HD, hyperkalemia -Nephrology consulted, appreciate recommendations -HD per nephrology -Strict intake and output -Renally dose medications -Avoid nephrotoxic medications -Epogen 3 times daily -Trend BMP ID: NAD -f/u blood culture -04/19 blood cultures x2 NGTD -Monitor WBC and temperature curve Endo: NAD -Avoid hypoglycemia Heme: Anemia of chronic disease -Trend CBC -Transfuse hemoglobin less than 7 -Epogen 3 times daily -SCDs to BLE while in bed The high probability of a clinically significant, sudden or life threatening deterioration of the [multiple] system(s) required my full and direct attention, intervention and personal management. The aggregate critical care time was [60] minutes. This time is in addition to time spent performing reported procedures but includes the following: [x] Data Review and interpretation [x] Patient assessment and monitoring of vital signs [x] Documentation [x] Medication orders and management Disposition Plan: icu Total Time Spent with Patient (Minutes): 60 History Interval history: This is a 66-year-old female with HTN, GERD, seizure disorder, vascular dementia, ESRD on HD (TTS), OA, chronic hypotension, bipolar, schizophrenia, anxiety examined mobility with a resident of [facility] present to the emergency department on 04/19 with altered mental status and for being combative causing her to miss several days of hemodialysis. On presentation patient was found to be more hypertensive than usual and on room air with oxygen saturations in the 90s and she subsequently went into SVT into the 150s requiring cardioversion under conscious sedation. Patient was admitted to the hospital service with acute hypoxic respiratory failure, acute on chronic hypotension, acute on chronic metabolic encephalopathy, SVT, hyperkalemia, NSTEMI type II to the ICU with consults to CCM, nephrology cardiology and psych. Hospital Course to Date: 04/20: Patient went into Afib with RVR overnight, now on amiodarone gtt per cardio. Patient remains in AFib with RVR this am, HR in the 120-140s. BP marginal on Levophed gtt, currently not a candidate for BB. Midodrine increased to 15mg TID. 2D Echo pending. On heparin gtt per protocol. No HD today per nephro due to hypotension and tachycardia. 04/21: Converted to SR this am, remains on Amiodarone and heparin. Awaiting cardio final recommendations. Still on Levophed gtt for low BP, given patient history of chronic hypotension, Wean pressor for MAP goal of 60s. Patient is pocketing foods, currently NPO, awaiting speech eval and treat. 04/22: Patient passed speech swallow eval yesterday, however, patient is refusing PO intakes including meds. Will insert DHT for nutrition and meds administration. Patient remains in SR this am, amiodaron gtt transitioned to PO per cardio. Patient remains on heparin and Levophed gtt. Patient has not received PO midrodrine for 24hrs, resume meds once DHT is inserted. Keep femoral CVC for another 24hrs, anticipating will be able to wean off pressor once patient receive midodrine. Will reassess in the morning. No HD overnight, unable to cannulate AVF, plan to attempt again today per Nephro. Possible IR/Vascular surgery consult if unsuccessful again today. 04/23: Mentation a lot better this am. DHT was inserted, meds resumed and TF initiated. Levophed gtt increased overnight due to worsen hypotension, suspected it is due to sedative agents. Seroquel decreased to 200mg BID and scheduled ativan switched to PRN. Continue midodrine TID and wean off levophed gtt for MAP goal of 60. Patient tolerated HD yesterday, continue iHD per Nephrology. CCM recommendations noted, Chest US ordered for pleural effusion. 04/24: RN instructed to wean Levophed off, goal MAP of 60. Heparin drip stopped due to decreasing hemoglobin. Hospitalist Physical - Constitutional Vitals: Temp Pulse Resp BP Pulse Ox 99.2 F 101 H 18 109/65 97 04/24/22 08:00 04/24/22 16:53 04/24/22 16:53 04/24/22 15:01 04/24/22 16:53 General appearance: Present: well-nourished, obese, other HEART Score - HEART Score Troponin: Troponin T 0.415 ng/mL (0.00-0.029) H* 04/19/22 04:53 Results - Labs CBC & Chem 7: 04/24/22 04:00 04/24/22 04:00 Labs: Laboratory Last Values WBC 5.8 K/mm3 (4.5-11.0) 04/24/22 04:00 RBC 2.48 M/mm3 (3.65-5.03) L 04/24/22 04:00 Hgb 7.1 gm/dl (10.1-14.3) L 04/24/22 04:00 Hct 22.6 % (30.3-42.9) L 04/24/22 04:00 MCV 91 fl (79-97) 04/24/22 04:00 MCH 29 pg (28-32) 04/24/22 04:00 MCHC 32 % (30-34) 04/24/22 04:00 RDW 16.9 % (13.2-15.2) H 04/24/22 04:00 Plt Count 331 K/mm3 (140-440) 04/24/22 04:00 Lymph % (Auto) 26.7 % (13.4-35.0) 04/20/22 05:30 Spalding % (Auto) 15.2 % (0.0-7.3) H 04/20/22 05:30 Eos % (Auto) 3.8 % (0.0-4.3) 04/20/22 05:30 Baso % (Auto) 1.2 % (0.0-1.8) 04/20/22 05:30 Lymph # (Auto) 1.1 K/mm3 (1.2-5.4) L 04/20/22 05:30 Spalding # (Auto) 0.6 K/mm3 (0.0-0.8) 04/20/22 05:30 Eos # (Auto) 0.2 K/mm3 (0.0-0.4) 04/20/22 05:30 Baso # (Auto) 0.0 K/mm3 (0.0-0.1) 04/20/22 05:30 Seg Neutrophils % 53.1 % (40.0-70.0) 04/20/22 05:30 Seg Neutrophils # 2.2 K/mm3 (1.8-7.7) 04/20/22 05:30 PT 17.9 Sec. (12.2-14.9) H 04/19/22 19:40 INR 1.28 (0.87-1.13) H 04/19/22 19:40 APTT 199.1 Sec. (24.2-36.6) H* 04/19/22 19:40 Heparin Anti-Xa Level < 0.10 U.I./ml (0.3-0.7) L 04/24/22 10:20 Sodium 134 mmol/L (137-145) L 04/24/22 04:00 Potassium 3.6 mmol/L (3.6-5.0) 04/24/22 04:00 Chloride 98.0 mmol/L (98-107) 04/24/22 04:00 Carbon Dioxide 24 mmol/L (22-30) 04/24/22 04:00 Anion Gap 16 mmol/L 04/24/22 04:00 BUN 42 mg/dL (7-17) H 04/24/22 04:00 Creatinine 3.9 mg/dL (0.6-1.2) H 04/24/22 04:00 Estimated GFR 14 ml/min 04/24/22 04:00 BUN/Creatinine Ratio 11 % 04/24/22 04:00 Glucose 141 mg/dL (65-100) H 04/24/22 04:00 POC Glucose 144 mg/dL (70-105) H 04/24/22 11:24 Lactic Acid 1.60 mmol/L (0.7-2.0) 04/19/22 07:14 Calcium 9.1 mg/dL (8.4-10.2) 04/24/22 04:00 Phosphorus 2.50 mg/dL (2.5-4.5) 04/24/22 04:00 Magnesium 1.80 mg/dL (1.7-2.3) 04/24/22 04:00 Total Bilirubin 0.30 mg/dL (0.1-1.2) 04/20/22 05:30 AST 11 units/L (5-40) 04/20/22 05:30 ALT 7 units/L (7-56) 04/20/22 05:30 Alkaline Phosphatase 101 units/L (35-129) 04/20/22 05:30 Ammonia 25.0 umol/L (25-60) 04/19/22 04:53 Troponin T 0.415 ng/mL (0.00-0.029) H* 04/19/22 04:53 Total Protein 6.4 g/dL (6.3-8.2) 04/20/22 05:30 Albumin 2.4 g/dL (3.9-5) L 04/20/22 05:30 Albumin/Globulin Ratio 0.6 % 04/20/22 05:30 TSH 1.700 mlU/mL (0.270-4.200) 04/19/22 04:53 Free T4 0.28 ng/dL (0.76-1.46) L 04/19/22 04:53 Hepatitis A IgM Ab Non-reactive (NonReactive) 04/19/22 04:53 Hep Bs Antigen Non-reactive (Negative) 04/19/22 04:53 Hep B Core IgM Ab Non-reactive (NonReactive) 04/19/22 04:53 Hepatitis C Antibody Non-reactive (NonReactive) 04/19/22 04:53 Microbiology: Microbiology 04/19/22 04:53 Peripheral/Venous Blood Culture - Final NO GROWTH AFTER 5 DAYS 04/19/22 05:43 Peripheral/Venous Blood Culture - Final NO GROWTH AFTER 5 DAYS Cleary/IV: Voiding Method Incontinent Active Medications - Current Medications Current Medications: Generic Name Dose Route Start Last Admin Trade Name Freq PRN Reason Stop Dose Admin Acetaminophen 650 mg 04/22/22 20:12 04/24/22 09:27 Acetaminophen 325 Mg/10.15 Ml Oral Liqd Unit Dose PO 650 mg Q6H PRN Administration Pain MILD(1-3)/Fever >100.5/DRAKE Albumin Human 25 gm 04/21/22 13:00 04/22/22 16:31 Albumin Human 25% (25 Gm/100 Ml) Inj IV 25 gm BIANCA PRN Administration Hypotension Albuterol 2.5 mg 04/21/22 08:30 04/24/22 16:51 Albuterol 2.5 Mg/3 Ml Nebu IH 2.5 mg Q3HRT PRN Administration Shortness Of Breath Albuterol/Ipratropium 1 ampul 04/21/22 14:00 04/24/22 16:51 Ipratropium/Albuterol Sulfate 3 Ml Ampul.Neb IH 1 ampul TIDRT CONNOR Administration Clopidogrel Bisulfate 75 mg 04/23/22 10:00 04/24/22 09:03 Clopidogrel 75 Mg Tab FEEDTUBE 75 mg QDAY CONNOR Administration Epoetin Lb-epbx 20,000 unit 04/23/22 12:00 Epoetin Lb-Epbx 20,000 Unit/1 Ml Vial IV BIANCA PRN HEMODIALYSIS NORepinephrine/NS 8 MG-250 ML 8 mg in 250 mls @ 3.75 mls/hr 04/19/22 09:00 04/24/22 12:45 Norepinephrine/Ns 8 Mg-250 Ml (Double Conc) IV 0 mcg/min TITRATE CONNOR 0 mls/hr Titration Protocol 2 MCG/MIN Sodium Chloride 100 mls @ 999 mls/hr 04/22/22 09:12 Nacl 0.9% IV BIANCA PRN Hypotension Lansoprazole 30 mg 04/23/22 10:00 04/24/22 09:03 Lansoprazole 30 Mg Solutab FEEDTUBE 30 mg QDAY CONNOR Administration Lorazepam 0.5 mg 04/22/22 19:07 Lorazepam 0.5 Mg Tab PO QDAY PRN Anxiety Memantine 5 mg 04/24/22 10:00 04/24/22 10:08 Memantine 10 Mg Tab FEEDTUBE 04/24/22 22:01 5 mg BID CONNOR Administration Memantine 5 mg 04/25/22 10:00 Memantine 5 Mg Tab FEEDTUBE BID CONNOR Metoclopramide HCl 5 mg 04/19/22 09:55 Metoclopramide 10 Mg/2 Ml Inj IV Q6H PRN Nausea And Vomiting Midodrine 15 mg 04/20/22 13:00 04/24/22 12:33 Midodrine 5 Mg Tab PO 15 mg 0800,1300,1800 CONNOR Administration Naloxone HCl 0.1 mg 04/19/22 09:55 Naloxone 0.4 Mg/1 Ml Inj IV Q2MIN PRN Res Rate </= 8 or 02 SAT < 92% Quetiapine Fumarate 200 mg 04/23/22 22:00 04/24/22 09:03 Quetiapine 200 Mg Tab PO 200 mg BID CONNOR Administration Risperidone 0.5 mg 04/19/22 12:00 04/24/22 09:07 Risperidone 1 Mg Tab PO 0.5 mg BID CONNOR Administration Senna 17.2 mg 04/23/22 10:00 04/24/22 09:03 Sennosides 8.6 Mg Tab FEEDTUBE 17.2 mg BID CONNOR Administration Sevelamer Carbonate 800 mg 04/19/22 12:00 04/24/22 12:33 Sevelamer Carbonate 800 Mg Tab PO 800 mg TIDWM CONNOR Administration Sodium Chloride 10 ml 04/19/22 12:00 04/24/22 09:08 Sodium Chloride 0.9% 10 Ml Flush Syringe IV 10 ml BID CONNOR Administration Sodium Chloride 10 ml 04/19/22 11:19 Sodium Chloride 0.9% 10 Ml Flush Syringe IV PRN PRN LINE FLUSH Valproic Acid 750 mg 04/22/22 22:00 04/24/22 09:03 Valproic Acid 250 Mg/5 Ml Oral Liqd FEEDTUBE 750 mg BID CONNOR Administration Nutrition/Malnutrition Assess - Dietary Evaluation Nutrition/Malnutrition Findings: Nutrition Notes Start: 04/19/22 17:39 Freq: Status: Active Protocol: Document 04/24/22 14:13 MIRIAN (Rec: 04/24/22 14:54 MIRIAN [id number]) Nutrition Notes Initial or Follow up Reassessment Current Diagnosis CKD (stage V CKD),Hypertension ,Malnutrition Other Pertinent Diagnosis Metabolic Encephalopathy, ESRD +HD, Anemia, NSTEMI II, Hypotension, SIRS,... Current Diet Nepro w/CARBSTEADY @ 30 ml/hr (since D 04/22). Labs/Tests 04/24: Na 134, BUN 42, Crea 3. 9, Glu 141. Pertinent Medications 04/24: Renvela, others nutritionally unremarkable. Height 5 ft 2 in Weight 54.43 kg Julian Body Weight (kg) 50.00 BMI 21.9 Intake Prior to Admission Good Weight change and time frame Pt denies having loss body weight [employer]. No body weight change reported in 5 days. Weight Status Appropriate Subjective/Other Information RD consult for TF tolerance/ continuation assessment. TF continues as prescribed, No further information available at the time. VEGETABLE PACKER notes on 04/21/22 13:28: Swallowing function has been assessed. Patient holds the bolus in the oral cavity for an extended period of time prior to initiating a swallow. This is attributed to her diminished mental acuity. Recommend a pureed diet with thins. However, intake must be monitored closely to ensure she eats a sufficient amount to maintain adequate nutritional support. Will continue to follow to determine if the diet may be upgraded pending her mental status. - END OF NOTE. Pt is on Room Air, O2 saturation @ 95%, according to Physical Assessment History notes. Percent of energy/protein needs met: Prescribed Nepro w/CARBSTEADY @ 30 ml/hr provides for energy /protein needs (1,269 Kcal/58 g) during LOS, 102% Kcal; 89% AA. GI Symptoms None Food Allergy Yes Skin Integrity/Comment Healing Sacral wound, intact. Current % PO Other Minimum of two criteria No Fluid Accumulation N/A Reduced I[employer] Programmer Strength N/A (non-severe) Protein-Calorie Malnutrition N\A #1 Nutrition Diagnosis Inadequate oral intake Comments: VEGETABLE PACKER notes on 04/21/22 13:28: Swallowing function has been assessed. Patient holds the bolus in the oral cavity for an extended period of time prior to initiating a swallow. This is attributed to her diminished mental acuity. Recommend a pureed diet with thins. However, intake must be monitored closely to ensure she eats a sufficient amount to maintain adequate nutritional support. Will continue to follow to determine if the diet may be upgraded pending her mental status. - END OF NOTE. Diagnosis Progress(for reassessment Continues documentation) Is patient on ventilator? No Is Patient Ambulatory and/or Out of Bed No [facility] [phone] Calculation Used for Recommendations [facility] Additional Notes Protein: >1.2 g/Kg ABW; >65 g/ day. Fluids: 1-1.5 L/day, or as per MD. Nutrition Intervention Nutrition Support: Continue Nepro w/CARBSTEADY @ 30 ml/hr. Flush: 130 ml water Q 4 hr, or as per MD. Kcal 1,269 Protein (gm) 58 Carbohydrates (gm) 116 Fat (gm) 58 Fluid (mL) 523 Fiber (gm) 9 % RDI: 102% Kcal; 89% AA. Goal #1 Provide at least 75% of energy /protein needs through Enteral Feeding during LOS. Follow-Up By: 05/01/22 Additional Comments Continue monitoring TF tolerance, vasopressors, and BM. <MELINDA BOWEN - Last Filed: 04/25/22 11:48> Assessment and Plan Assessment and plan: I saw and evaluated the patient. I agree with the findings and the plan of care as documented in the Nurse Practitioner's~note, with the following corrections and additions. Hospitalist Physical - Constitutional Vitals: Temp Pulse Resp BP Pulse Ox 98.9 F 110 H 24 99/54 92 04/25/22 08:00 04/25/22 11:00 04/25/22 11:00 04/25/22 11:00 04/25/22 11:00 HEART Score - HEART Score Troponin: Troponin T 0.415 ng/mL (0.00-0.029) H* 04/19/22 04:53 Results - Labs CBC & Chem 7: 04/25/22 04:11 04/25/22 04:11 Labs: Laboratory Last Values WBC 4.4 K/mm3 (4.5-11.0) L 04/25/22 04:11 RBC 2.38 M/mm3 (3.65-5.03) L 04/25/22 04:11 Hgb 6.7 gm/dl (10.1-14.3) L 04/25/22 04:11 Hct 21.7 % (30.3-42.9) L 04/25/22 04:11 MCV 92 fl (79-97) 04/25/22 04:11 MCH 28 pg (28-32) 04/25/22 04:11 MCHC 31 % (30-34) 04/25/22 04:11 RDW 17.2 % (13.2-15.2) H 04/25/22 04:11 Plt Count 262 K/mm3 (140-440) 04/25/22 04:11 Lymph % (Auto) 26.7 % (13.4-35.0) 04/20/22 05:30 [place]al[place] % (Auto) 15.2 % (0.0-7.3) H 04/20/22 05:30 Eos % (Auto) 3.8 % (0.0-4.3) 04/20/22 05:30 Baso % (Auto) 1.2 % (0.0-1.8) 04/20/22 05:30 Lymph # (Auto) 1.1 K/mm3 (1.2-5.4) L 04/20/22 05:30 [place] # (Auto) 0.6 K/mm3 (0.0-0.8) 04/20/22 05:30 Eos # (Auto) 0.2 K/mm3 (0.0-0.4) 04/20/22 05:30 Baso # (Auto) 0.0 K/mm3 (0.0-0.1) 04/20/22 05:30 Seg Neutrophils % 53.1 % (40.0-70.0) 04/20/22 05:30 Seg Neutrophils # 2.2 K/mm3 (1.8-7.7) 04/20/22 05:30 PT 17.9 Sec. (12.2-14.9) H 04/19/22 19:40 INR 1.28 (0.87-1.13) H 04/19/22 19:40 APTT 199.1 Sec. (24.2-36.6) H* 04/19/22 19:40 Heparin Anti-Xa Level < 0.10 U.I./ml (0.3-0.7) L 04/24/22 10:20 Sodium 134 mmol/L (137-145) L 04/25/22 04:11 Potassium 3.9 mmol/L (3.6-5.0) 04/25/22 04:11 Chloride 97.1 mmol/L (98-107) L 04/25/22 04:11 Carbon Dioxide 23 mmol/L (22-30) 04/25/22 04:11 Anion Gap 18 mmol/L 04/25/22 04:11 BUN 47 mg/dL (7-17) H 04/25/22 04:11 Creatinine 4.3 mg/dL (0.6-1.2) H 04/25/22 04:11 Estimated GFR 12 ml/min 04/25/22 04:11 BUN/Creatinine Ratio 11 % 04/25/22 04:11 Glucose 106 mg/dL (65-100) H 04/25/22 04:11 POC Glucose 137 mg/dL (70-105) H 04/25/22 06:01 Lactic Acid 1.60 mmol/L (0.7-2.0) 04/19/22 07:14 Calcium 9.3 mg/dL (8.4-10.2) 04/25/22 04:11 Phosphorus 2.50 mg/dL (2.5-4.5) 04/24/22 04:00 Magnesium 1.80 mg/dL (1.7-2.3) 04/24/22 04:00 Total Bilirubin 0.30 mg/dL (0.1-1.2) 04/20/22 05:30 AST 11 units/L (5-40) 04/20/22 05:30 ALT 7 units/L (7-56) 04/20/22 05:30 Alkaline Phosphatase 101 units/L (35-129) 04/20/22 05:30 Ammonia 25.0 umol/L (25-60) 04/19/22 04:53 Troponin T 0.415 ng/mL (0.00-0.029) H* 04/19/22 04:53 Total Protein 6.4 g/dL (6.3-8.2) 04/20/22 05:30 Albumin 2.4 g/dL (3.9-5) L 04/20/22 05:30 Albumin/Globulin Ratio 0.6 % 04/20/22 05:30 TSH 1.700 mlU/mL (0.270-4.200) 04/19/22 04:53 Free T4 0.28 ng/dL (0.76-1.46) L 04/19/22 04:53 Hepatitis A IgM Ab Non-reactive (NonReactive) 04/19/22 04:53 Hep Bs Antigen Non-reactive (Negative) 04/19/22 04:53 Hep B Core IgM Ab Non-reactive (NonReactive) 04/19/22 04:53 Hepatitis C Antibody Non-reactive (NonReactive) 04/19/22 04:53 Cleary/IV: Voiding Method Incontinent Active Medications - Current Medications Current Medications: Generic Name Dose Route Start Last Admin Trade Name Freq PRN Reason Stop Dose Admin Acetaminophen 650 mg 04/22/22 20:12 04/24/22 17:55 Acetaminophen 325 Mg/10.15 Ml Oral Liqd Unit Dose PO 650 mg Q6H PRN Administration Pain MILD(1-3)/Fever >100.5/DRAKE Albumin Human 25 gm 04/21/22 13:00 04/22/22 16:31 Albumin Human 25% (25 Gm/100 Ml) Inj IV 25 gm BIANCA PRN Administration Hypotension Albuterol 2.5 mg 04/21/22 08:30 04/24/22 16:51 Albuterol 2.5 Mg/3 Ml Nebu IH 2.5 mg Q3HRT PRN Administration Shortness Of Breath Albuterol/Ipratropium 1 ampul 04/21/22 14:00 04/25/22 08:51 Ipratropium/Albuterol Sulfate 3 Ml Ampul.Neb IH 1 ampul TIDRT CONNOR Administration Clopidogrel Bisulfate 75 mg 04/23/22 10:00 04/25/22 09:43 Clopidogrel 75 Mg Tab FEEDTUBE 75 mg QDAY CONNOR Administration Epoetin Lb-epbx 20,000 unit 04/23/22 12:00 Epoetin Lb-Epbx 20,000 Unit/1 Ml Vial IV BIANCA PRN HEMODIALYSIS NORepinephrine/NS 8 MG-250 ML 8 mg in 250 mls @ 3.75 mls/hr 04/19/22 09:00 04/24/22 12:45 Norepinephrine/Ns 8 Mg-250 Ml (Double Conc) IV 0 mcg/min TITRATE CONNOR 0 mls/hr Titration Protocol 2 MCG/MIN Sodium Chloride 100 mls @ 999 mls/hr 04/22/22 09:12 Nacl 0.9% IV BIANCA PRN Hypotension Sodium Chloride 500 mls @ 0 mls/hr 04/25/22 10:00 Nacl 0.9% 500 Ml IV 04/25/22 23:59 ONCE NR As Directed Lansoprazole 30 mg 04/23/22 10:00 04/25/22 09:43 Lansoprazole 30 Mg Solutab FEEDTUBE 30 mg QDAY CONNOR Administration Lorazepam 0.5 mg 04/25/22 09:59 Lorazepam 0.5 Mg Tab FEEDTUBE QDAY PRN Anxiety Memantine 5 mg 04/25/22 10:00 Memantine 5 Mg Tab FEEDTUBE BID CONNOR Metoclopramide HCl 5 mg 04/19/22 09:55 Metoclopramide 10 Mg/2 Ml Inj IV Q6H PRN Nausea And Vomiting Midodrine 15 mg 04/25/22 10:00 04/25/22 10:50 Midodrine 5 Mg Tab FEEDTUBE Not Given 0800,1300,1800 CONNOR Naloxone HCl 0.1 mg 04/19/22 09:55 Naloxone 0.4 Mg/1 Ml Inj IV Q2MIN PRN Res Rate </= 8 or 02 SAT < 92% Quetiapine Fumarate 200 mg 04/25/22 22:00 Quetiapine 200 Mg Tab FEEDTUBE QHS CONNOR Quetiapine Fumarate 100 mg 04/26/22 10:00 Quetiapine 100 Mg Tab FEEDTUBE QAM CONNOR Risperidone 0.5 mg 04/25/22 11:00 04/25/22 11:29 Risperidone 1 Mg Tab FEEDTUBE Not Given BID CONNOR Senna 17.2 mg 04/23/22 10:00 04/25/22 09:43 Sennosides 8.6 Mg Tab FEEDTUBE 17.2 mg BID CONNOR Administration Sevelamer Carbonate 800 mg 04/19/22 12:00 04/25/22 08:55 Sevelamer Carbonate 800 Mg Tab PO 800 mg TIDWM CONNOR Administration Sodium Chloride 10 ml 04/19/22 12:00 04/25/22 09:43 Sodium Chloride 0.9% 10 Ml Flush Syringe IV 10 ml BID CONNOR Administration Sodium Chloride 10 ml 04/19/22 11:19 Sodium Chloride 0.9% 10 Ml Flush Syringe IV PRN PRN LINE FLUSH Valproic Acid 750 mg 04/22/22 22:00 04/25/22 09:43 Valproic Acid 250 Mg/5 Ml Oral Liqd FEEDTUBE 750 mg BID CONNOR Administration Nutrition/Malnutrition Assess - Dietary Evaluation Nutrition/Malnutrition Findings: Nutrition Notes Start: 04/19/22 17:39 Freq: Status: Active Protocol: Document 04/24/22 14:13 MIRIAN (Rec: 04/24/22 14:54 MIRIAN [id number]) Nutrition Notes Initial or Follow up Reassessment Current Diagnosis CKD (stage V CKD),Hypertension ,Malnutrition Other Pertinent Diagnosis Metabolic Encephalopathy, ESRD +HD, Anemia, NSTEMI II, Hypotension, SIRS,... Current Diet Nepro w/CARBSTEADY @ 30 ml/hr (since D 04/22). Labs/Tests 04/24: Na 134, BUN 42, Crea 3. 9, Glu 141. Pertinent Medications 04/24: Renvela, others nutritionally unremarkable. Height 5 ft 2 in Weight 54.43 kg Julian Body Weight (kg) 50.00 BMI 21.9 Intake Prior to Admission Good Weight change and time frame Pt denies having loss body weight [employer]. No body weight change reported in 5 days. Weight Status Appropriate Subjective/Other Information RD consult for TF tolerance/ continuation assessment. TF continues as prescribed, No further information available at the time. VEGETABLE PACKER notes on 04/21/22 13:28: Swallowing function has been assessed. Patient holds the bolus in the oral cavity for an extended period of time prior to initiating a swallow. This is attributed to her diminished mental acuity. Recommend a pureed diet with thins. However, intake must be monitored closely to ensure she eats a sufficient amount to maintain adequate nutritional support. Will continue to follow to determine if the diet may be upgraded pending her mental status. - END OF NOTE. Pt is on Room Air, O2 saturation @ 95%, according to Physical Assessment History notes. Percent of energy/protein needs met: Prescribed Nepro w/CARBSTEADY @ 30 ml/hr provides for energy /protein needs (1,269 Kcal/58 g) during LOS, 102% Kcal; 89% AA. GI Symptoms None Food Allergy Yes Skin Integrity/Comment Healing Sacral wound, intact. Current % PO Other Minimum of two criteria No Fluid Accumulation N/A Reduced [employer] Programmer Strength N/A (non-severe) Protein-Calorie Malnutrition N\A #1 Nutrition Diagnosis Inadequate oral intake Comments: VEGETABLE PACKER notes on 04/21/22 13:28: Swallowing function has been assessed. Patient holds the bolus in the oral cavity for an extended period of time prior to initiating a swallow. This is attributed to her diminished mental acuity. Recommend a pureed diet with thins. However, intake must be monitored closely to ensure she eats a sufficient amount to maintain adequate nutritional support. Will continue to follow to determine if the diet may be upgraded pending her mental status. - END OF NOTE. Diagnosis Progress(for reassessment Continues documentation) Is patient on ventilator? No Is Patient Ambulatory and/or Out of Bed No REE-([facility]-confined to bed) [phone] Calculation Used for Recommendations [facility] Additional Notes Protein: >1.2 g/Kg ABW; >65 g/ day. Fluids: 1-1.5 L/day, or as per MD. Nutrition Intervention Nutrition Support: Continue Nepro w/CARBSTEADY @ 30 ml/hr. Flush: 130 ml water Q 4 hr, or as per MD. Kcal 1,269 Protein (gm) 58 Carbohydrates (gm) 116 Fat (gm) 58 Fluid (mL) 523 Fiber (gm) 9 % RDI: 102% Kcal; 89% AA. Goal #1 Provide at least 75% of energy /protein needs through Enteral Feeding during LOS. Follow-Up By: 05/01/22 Additional Comments Continue monitoring TF tolerance, vasopressors, and BM.
[2022-04-25 04:30] LABS: Hematocrit 21.7 % (30.3-42.9); Hemoglobin 6.7 gm/dl (10.1-14.3); Mean Corpuscular HGB Conc 31 % (30-34); Mean Corpuscular Volume 92 fl (79-97); Platelet Count 262 K/mm3 (140-440); Red Blood Count 2.38 M/mm3 (3.65-5.03); Red Cell Distribution Width 17.2 % (13.2-15.2)
[2022-04-25 04:53] LABS: Calcium 9.3 mg/dL (8.4-10.2)
[2022-04-25] MEDS: IPRATROPIUM/ALBUTEROL SULFATE 3 ML AMPUL.NEB IH SCH ×3 (08:51→20:08)
[2022-04-25] MEDS: SEVELAMER CARBONATE 800 MG TAB PO SCH ×3 (08:55→18:00)
[2022-04-25] MEDS: MIDODRINE 5 MG TAB PO SCH (08:55)
[2022-04-25] MEDS: SENNOSIDES 8.6 MG TAB FEEDTUBE SCH ×2 (09:43→21:50)
[2022-04-25] MEDS: QUEtiapine 200 MG TAB PO SCH (09:43)
[2022-04-25] MEDS: VALPROIC ACID 250 MG/5 ML ORAL LIQD FEEDTUBE SCH ×2 (09:43→21:50)
[2022-04-25] MEDS: LANSOPRAZOLE 30 MG SOLUTAB FEEDTUBE SCH (09:43)
[2022-04-25] MEDS: risperiDONE 1 MG TAB PO SCH (09:43)
[2022-04-25] MEDS: CLOPIDOGREL 75 MG TAB FEEDTUBE SCH (09:43)
[2022-04-25] MEDS ORDERED: LORazepam 0.5 MG TAB FEEDTUBE PRN (09:59)
[2022-04-25] MEDS ORDERED: SODIUM CHLORIDE 0.9% 500 ML 500 ML IV NR (10:00)
[2022-04-25] MEDS: MIDODRINE 5 MG TAB FEEDTUBE SCH ×3 (10:50→18:17)
[2022-04-25] MEDS: MEMANTINE 5 MG TAB FEEDTUBE SCH ×2 (10:55→21:50)
[2022-04-25] MEDS: risperiDONE 1 MG TAB FEEDTUBE SCH ×2 (11:29→21:50)
--- NOTE | 2022-04-25 11:43 | Progress Note ---
Assessment and Plan Acute hypoxemic respiratory failure, Acute on Chronic Hypotension Acute on Chronic Metabolic Encephalopathy Possible Shock Syndrome SVT Elevated troponin, Bipolar disorder, Schizophrenia, Hyperkalemia ESRD on hemodialysis, Anemia of chronic disease, Type 2 NSTEMI GERD Subclinical Hypothyroidism Moderate protein caloric malnutrition - per [employer] she is cleared for a pureed diet but she may not be able to meet her caloric needs - continue enteral nutrition at goal rate as tolerated - she may need a PEG (if she does not meet caloric needs) - prn Levophed for target MAP >/= 60 mmHg and follow clinically - Albumin 25 gms of 25% solution prn MAP < 60 mmHg - continue HD/UF per nephrology prescription for toxin and volume clearance - continue Midodrine but at 15 mg p.o. tid for BP support (increase to 20 mg po tid if she becomes hypotensive during dialysis) - continue care as below otherwise; - continue accuchecks with glycemic control per SSI (While critically ill target blood glucose of 140-180 mg/dL; avoid hypoglycemia) - continue supplemental oxygen for target O2 sat's > 90% acutely - aspiration precautions - prn bronchodilators with pulmonary hygiene per RT - avoid nephrotoxins, renally dose all medications - continue to avoid benzodiazepine's, reduce the possibility of delirium - AB's per ID rec's - prn analgesia per pain score - Maintenance of sleep-wake cycle, avoid delirium - G.I. & VTE prophylaxis - PT/OT/ROM exercises - continue mobility protocols for pressure ulcer prophylaxis - Monitor hemodynamics closely - continue other care per attending / other consultants - discharge planning ongoing concurrently .... Re-evaluate in am & prn CONDITION: CRITICAL PROGNOSIS: GUARDED CODE STATUS: FULL CODE The high probability of a clinically significant, sudden or life-threatening d eterioration of the [respiratory, cardiovascular, renal & neurologic] system(s) required my full and direct attention, intervention and personal management. The aggregate critical care time was [32] minutes without overlap. Time includes spent on; [x] Data Review and interpretation [x] Patient assessment and monitoring of vital signs [x] Documentation [x] Medication orders and management Subjective Date of service: 04/25/22 Principal diagnosis: AHRF; Shock; AMS; SVT; NSTEMI; ESRD; Protein calorie malnutrition Interval history: Patient is seen today for: Acute hypoxemic respiratory failure; Shock / Hypotension; AMS; SVT; NSTEMI; Schizophrenia; ESRD on Dialysis; Moderate protein caloric malnutrition Seen and examined at bedside; 24hour events reviewed; nursing and respiratory care staff consulted; no adverse overnight events reported to me; resting in bed; remains off Levophed but for Hemodialysis today and will see if she needs during procedure; denies chest pains or acute SOB; No N/V/F/C; serum Hb 6.7 Objective Vital Signs - 12hr 04/24/22 04/24/22 04/25/22 23:45 23:47 00:00 Temperature 99.2 F Pulse Rate 98 H 95 H 101 H Pulse Rate [ Anterior Bilateral Throughout] Pulse Rate [ 100 H From Monitor] Respiratory 25 H 24 24 Rate Respiratory Rate [Anterior Bilateral Throughout] Blood Pressure 95/50 95/50 99/59 O2 Sat by Pulse 93 93 93 Oximetry 04/25/22 04/25/22 04/25/22 00:15 01:00 01:15 Temperature Pulse Rate 103 H 94 H 93 H Pulse Rate [ Anterior Bilateral Throughout] Pulse Rate [ From Monitor] Respiratory 25 H 23 23 Rate Respiratory Rate [Anterior Bilateral Throughout] Blood Pressure 93/63 85/38 96/42 O2 Sat by Pulse 94 93 94 Oximetry 04/25/22 04/25/22 04/25/22 01:30 01:45 02:00 Temperature Pulse Rate 98 H 99 H 98 H Pulse Rate [ Anterior Bilateral Throughout] Pulse Rate [ From Monitor] Respiratory 29 H 28 H 23 Rate Respiratory Rate [Anterior Bilateral Throughout] Blood Pressure 107/57 101/50 106/52 O2 Sat by Pulse 93 94 93 Oximetry 04/25/22 04/25/22 04/25/22 03:00 03:45 04:00 Temperature 99.2 F Pulse Rate 98 H 88 94 H Pulse Rate [ Anterior Bilateral Throughout] Pulse Rate [ 86 From Monitor] Respiratory 25 H 24 28 H Rate Respiratory Rate [Anterior Bilateral Throughout] Blood Pressure 99/49 91/41 107/57 O2 Sat by Pulse 94 93 94 Oximetry 04/25/22 04/25/22 04/25/22 04:15 04:30 04:45 Temperature Pulse Rate 98 H 96 H 96 H Pulse Rate [ Anterior Bilateral Throughout] Pulse Rate [ From Monitor] Respiratory 22 24 21 Rate Respiratory Rate [Anterior Bilateral Throughout] Blood Pressure 114/47 100/53 100/49 O2 Sat by Pulse 94 93 93 Oximetry 04/25/22 04/25/22 04/25/22 05:01 05:15 05:30 Temperature Pulse Rate 97 H 96 H 90 Pulse Rate [ Anterior Bilateral Throughout] Pulse Rate [ From Monitor] Respiratory 15 27 H 22 Rate Respiratory Rate [Anterior Bilateral Throughout] Blood Pressure 97/50 99/54 93/46 O2 Sat by Pulse 94 93 93 Oximetry 04/25/22 04/25/22 04/25/22 05:45 06:00 06:15 Temperature Pulse Rate 93 H 97 H 96 H Pulse Rate [ Anterior Bilateral Throughout] Pulse Rate [ From Monitor] Respiratory 24 20 26 H Rate Respiratory Rate [Anterior Bilateral Throughout] Blood Pressure 100/45 105/55 104/54 O2 Sat by Pulse 94 93 92 Oximetry 04/25/22 04/25/22 04/25/22 06:30 06:45 07:00 Temperature Pulse Rate 86 92 H 96 H Pulse Rate [ Anterior Bilateral Throughout] Pulse Rate [ From Monitor] Respiratory 21 27 H 24 Rate Respiratory Rate [Anterior Bilateral Throughout] Blood Pressure 97/46 97/46 100/52 O2 Sat by Pulse 94 96 93 Oximetry 04/25/22 04/25/22 04/25/22 07:15 07:30 07:45 Temperature Pulse Rate 99 H 96 H 98 H Pulse Rate [ Anterior Bilateral Throughout] Pulse Rate [ From Monitor] Respiratory 26 H 29 H 25 H Rate Respiratory Rate [Anterior Bilateral Throughout] Blood Pressure 97/71 106/52 103/61 O2 Sat by Pulse 93 92 94 Oximetry 04/25/22 04/25/22 04/25/22 08:00 08:15 08:30 Temperature 98.9 F Pulse Rate 97 H 98 H 95 H Pulse Rate [ Anterior Bilateral Throughout] Pulse Rate [ 97 H From Monitor] Respiratory 27 H 31 H 28 H Rate Respiratory Rate [Anterior Bilateral Throughout] Blood Pressure 106/52 109/55 90/54 O2 Sat by Pulse 93 94 93 Oximetry 04/25/22 04/25/22 04/25/22 08:45 08:51 09:00 Temperature Pulse Rate 93 H 91 H Pulse Rate [ 92 H Anterior Bilateral Throughout] Pulse Rate [ From Monitor] Respiratory 24 24 Rate Respiratory 18 Rate [Anterior Bilateral Throughout] Blood Pressure 100/55 100/58 O2 Sat by Pulse 94 100 Oximetry 04/25/22 04/25/22 04/25/22 09:15 09:30 09:45 Temperature Pulse Rate 107 H 105 H 105 H Pulse Rate [ Anterior Bilateral Throughout] Pulse Rate [ From Monitor] Respiratory 28 H 18 20 Rate Respiratory Rate [Anterior Bilateral Throughout] Blood Pressure 97/58 117/63 105/60 O2 Sat by Pulse 91 91 90 Oximetry 04/25/22 04/25/22 04/25/22 09:59 10:00 10:15 Temperature Pulse Rate 103 H 105 H Pulse Rate [ Anterior Bilateral Throughout] Pulse Rate [ From Monitor] Respiratory 29 H 27 H Rate Respiratory Rate [Anterior Bilateral Throughout] Blood Pressure 112/51 102/53 O2 Sat by Pulse 99 92 91 Oximetry 04/25/22 04/25/22 04/25/22 10:30 10:45 11:00 Temperature Pulse Rate 102 H 106 H 110 H Pulse Rate [ Anterior Bilateral Throughout] Pulse Rate [ From Monitor] Respiratory 28 H 26 H 24 Rate Respiratory Rate [Anterior Bilateral Throughout] Blood Pressure 109/42 103/52 99/54 O2 Sat by Pulse 93 91 92 Oximetry Constitutional: no acute distress Eyes: non-icteric ENT: oropharynx moist Neck: supple, no lymphadenopathy, no JVD Effort: normal Ascultation: Bilateral: clear, rhonchi (scant posterior basilar ) Percussion: Bilateral: not dull Cardiovascular: regular rate and rhythm Gastrointestinal: normoactive bowel sounds, soft, non-tender, non-distended Integumentary: normal Extremities: no cyanosis, no edema, pulses normal, no ischemia or petechiae Neurologic: non-focal exam (grossly), pupils equal and round, CN II-XII normal, motor strength normal and Psychiatric: mood appropriate, affect normal CBC and BMP: 04/25/22 04:11 04/25/22 04:11 ABG, PT/INR, D-dimer: PT/INR, D-dimer PT 17.9 Sec. (12.2-14.9) H 04/19/22 19:40 INR 1.28 (0.87-1.13) H 04/19/22 19:40 Abnormal lab findings: Abnormal Labs 04/19/22 04/19/22 04/19/22 04:53 04:53 04:53 WBC RBC 3.06 L Hgb 8.6 L Hct 28.0 L RDW 16.3 H [place] % (Auto) 11.3 H Lymph # (Auto) PT INR APTT Heparin Anti-Xa Level Sodium Potassium 5.1 H Chloride Carbon Dioxide 21 L BUN 94 H Creatinine 6.3 H Glucose POC Glucose Phosphorus Magnesium Troponin T 0.415 H* Albumin 2.7 L Free T4 0.28 L 04/19/22 04/19/22 04/20/22 19:40 19:40 05:30 WBC 4.1 L RBC 2.97 L Hgb 8.5 L 8.2 L Hct 27.8 L 27.1 L RDW 17.0 H [place] % (Auto) 15.2 H Lymph # (Auto) 1.1 L PT 17.9 H INR 1.28 H APTT 199.1 H* Heparin Anti-Xa Level Sodium Potassium Chloride Carbon Dioxide BUN Creatinine Glucose POC Glucose Phosphorus Magnesium Troponin T Albumin Free T4 04/20/22 04/20/22 04/21/22 05:30 18:23 00:29 WBC RBC Hgb Hct RDW [place] % (Auto) Lymph # (Auto) PT INR APTT Heparin Anti-Xa Level 0.17 L Sodium Potassium Chloride Carbon Dioxide 21 L BUN 95 H Creatinine 6.6 H Glucose 139 H POC Glucose Phosphorus Magnesium 2.60 H Troponin T Albumin 2.4 L Free T4 04/21/22 04/21/22 04/22/22 04:00 04:00 03:45 WBC RBC 2.74 L Hgb 7.7 L Hct 24.7 L RDW 16.6 H [place] % (Auto) Lymph # (Auto) PT INR APTT Heparin Anti-Xa Level < 0.10 L Sodium 133 L Potassium Chloride Carbon Dioxide 20 L BUN 89 H Creatinine 6.6 H Glucose 131 H POC Glucose Phosphorus 6.40 H Magnesium 2.50 H Troponin T Albumin Free T4 04/22/22 04/22/22 04/22/22 03:45 12:13 14:30 WBC RBC Hgb Hct RDW [place] % (Auto) Lymph # (Auto) PT INR APTT Heparin Anti-Xa Level 0.11 L 0.11 L Sodium 136 L Potassium Chloride Carbon Dioxide 18 L BUN 90 H Creatinine 6.3 H Glucose 121 H POC Glucose Phosphorus 6.50 H Magnesium Troponin T Albumin Free T4 04/22/22 04/23/22 04/23/22 23:08 02:17 04:10 WBC RBC Hgb 7.3 L Hct 23.3 L RDW [place] % (Auto) Lymph # (Auto) PT INR APTT Heparin Anti-Xa Level 0.14 L Sodium Potassium Chloride Carbon Dioxide BUN Creatinine Glucose POC Glucose 153 H Phosphorus Magnesium Troponin T Albumin Free T4 04/23/22 04/23/22 04/23/22 04:10 06:09 23:22 WBC RBC Hgb Hct RDW [place] % (Auto) Lymph # (Auto) PT INR APTT Heparin Anti-Xa Level Sodium Potassium Chloride Carbon Dioxide BUN 36 H Creatinine 3.4 H Glucose 131 H POC Glucose 141 H 114 H Phosphorus Magnesium Troponin T Albumin Free T4 04/24/22 04/24/22 04/24/22 02:10 04:00 04:00 WBC RBC 2.48 L Hgb 7.1 L Hct 22.6 L RDW 16.9 H [place] % (Auto) Lymph # (Auto) PT INR APTT Heparin Anti-Xa Level 0.12 L Sodium 134 L Potassium Chloride Carbon Dioxide BUN 42 H Creatinine 3.9 H Glucose 141 H POC Glucose Phosphorus Magnesium Troponin T Albumin Free T4 04/24/22 04/24/22 04/24/22 05:03 10:20 11:24 WBC RBC Hgb Hct RDW [place] % (Auto) Lymph # (Auto) PT INR APTT Heparin Anti-Xa Level < 0.10 L Sodium Potassium Chloride Carbon Dioxide BUN Creatinine Glucose POC Glucose 142 H 144 H Phosphorus Magnesium Troponin T Albumin Free T4 04/25/22 04/25/22 04/25/22 00:15 04:11 04:11 WBC 4.4 L RBC 2.38 L Hgb 6.7 L Hct 21.7 L RDW 17.2 H [place] % (Auto) Lymph # (Auto) PT INR APTT Heparin Anti-Xa Level Sodium 134 L Potassium Chloride 97.1 L Carbon Dioxide BUN 47 H Creatinine 4.3 H Glucose 106 H POC Glucose 136 H Phosphorus Magnesium Troponin T Albumin Free T4 04/25/22 06:01 WBC RBC Hgb Hct RDW [place] % (Auto) Lymph # (Auto) PT INR APTT Heparin Anti-Xa Level Sodium Potassium Chloride Carbon Dioxide BUN Creatinine Glucose POC Glucose 137 H Phosphorus Magnesium Troponin T Albumin Free T4 Allied health notes reviewed: nursing
--- NOTE | 2022-04-25 12:42 | Progress Note ---
Assessment and Plan Impression: * End stage renal disease * AMS * SVT s/p cardioversion * SIRS * NSTEMI * Hypotension * Anemia secondary to ESRD * Secondary hyperparathyroidism Plan: * Will continue hemodialysis prn, last 04/22- plan to continue // if hemodynamically stable, plan for HD today for toxin clearance * Minimal UF removal given soft BP- adjust salt baths and temp prn as well- will attempt gentle UF as lungs are coarse * Dose medications for renal function * cardiology/pulmonary notes reviewed, appreciated * continue midodrine given soft BP * keep MAP>65, vasopressors prn * Avoid potential nephrotoxins * Epogen TIW prn * Renal/HD diet * Continue binders prn Subjective Date of service: 04/25/22 Principal diagnosis: AHRF; Shock; AMS; SVT; NSTEMI; ESRD; Protein calorie malnutrition Interval history: Seen in ICU, off pressor support (Levophed). Denies any concerning symptoms Objective - Exam Narrative Exam: General: No acute distress Head: NC/AT Eyes: normal appearance Neck: Normal appearance Chest: coarse lung sounds CV: Regular rate and rhythm, right arm dialysis access Abdomen: Soft, normal bowel sounds, nontender, nondistended Neuro: alert, oriented, no focal deficits - Vital Signs Vital signs: Vital Signs - 12hr 04/25/22 04/25/22 04/25/22 01:00 01:15 01:30 Temperature Pulse Rate 94 H 93 H 98 H Pulse Rate [ Anterior Bilateral Throughout] Pulse Rate [ From Monitor] Respiratory 23 23 29 H Rate Respiratory Rate [Anterior Bilateral Throughout] Blood Pressure 85/38 96/42 107/57 O2 Sat by Pulse 93 94 93 Oximetry 04/25/22 04/25/22 04/25/22 01:45 02:00 03:00 Temperature Pulse Rate 99 H 98 H 98 H Pulse Rate [ Anterior Bilateral Throughout] Pulse Rate [ From Monitor] Respiratory 28 H 23 25 H Rate Respiratory Rate [Anterior Bilateral Throughout] Blood Pressure 101/50 106/52 99/49 O2 Sat by Pulse 94 93 94 Oximetry 04/25/22 04/25/22 04/25/22 03:45 04:00 04:15 Temperature 99.2 F Pulse Rate 88 94 H 98 H Pulse Rate [ Anterior Bilateral Throughout] Pulse Rate [ 86 From Monitor] Respiratory 24 28 H 22 Rate Respiratory Rate [Anterior Bilateral Throughout] Blood Pressure 91/41 107/57 114/47 O2 Sat by Pulse 93 94 94 Oximetry 04/25/22 04/25/22 04/25/22 04:30 04:45 05:01 Temperature Pulse Rate 96 H 96 H 97 H Pulse Rate [ Anterior Bilateral Throughout] Pulse Rate [ From Monitor] Respiratory 24 21 15 Rate Respiratory Rate [Anterior Bilateral Throughout] Blood Pressure 100/53 100/49 97/50 O2 Sat by Pulse 93 93 94 Oximetry 04/25/22 04/25/22 04/25/22 05:15 05:30 05:45 Temperature Pulse Rate 96 H 90 93 H Pulse Rate [ Anterior Bilateral Throughout] Pulse Rate [ From Monitor] Respiratory 27 H 22 24 Rate Respiratory Rate [Anterior Bilateral Throughout] Blood Pressure 99/54 93/46 100/45 O2 Sat by Pulse 93 93 94 Oximetry 04/25/22 04/25/22 04/25/22 06:00 06:15 06:30 Temperature Pulse Rate 97 H 96 H 86 Pulse Rate [ Anterior Bilateral Throughout] Pulse Rate [ From Monitor] Respiratory 20 26 H 21 Rate Respiratory Rate [Anterior Bilateral Throughout] Blood Pressure 105/55 104/54 97/46 O2 Sat by Pulse 93 92 94 Oximetry 04/25/22 04/25/22 04/25/22 06:45 07:00 07:15 Temperature Pulse Rate 92 H 96 H 99 H Pulse Rate [ Anterior Bilateral Throughout] Pulse Rate [ From Monitor] Respiratory 27 H 24 26 H Rate Respiratory Rate [Anterior Bilateral Throughout] Blood Pressure 97/46 100/52 97/71 O2 Sat by Pulse 96 93 93 Oximetry 04/25/22 04/25/22 04/25/22 07:30 07:45 08:00 Temperature 98.9 F Pulse Rate 96 H 98 H 97 H Pulse Rate [ Anterior Bilateral Throughout] Pulse Rate [ 97 H From Monitor] Respiratory 29 H 25 H 27 H Rate Respiratory Rate [Anterior Bilateral Throughout] Blood Pressure 106/52 103/61 106/52 O2 Sat by Pulse 92 94 93 Oximetry 04/25/22 04/25/22 04/25/22 08:15 08:30 08:45 Temperature Pulse Rate 98 H 95 H 93 H Pulse Rate [ Anterior Bilateral Throughout] Pulse Rate [ From Monitor] Respiratory 31 H 28 H 24 Rate Respiratory Rate [Anterior Bilateral Throughout] Blood Pressure 109/55 90/54 100/55 O2 Sat by Pulse 94 93 94 Oximetry 04/25/22 04/25/22 04/25/22 08:51 09:00 09:15 Temperature Pulse Rate 91 H 107 H Pulse Rate [ 92 H Anterior Bilateral Throughout] Pulse Rate [ From Monitor] Respiratory 24 28 H Rate Respiratory 18 Rate [Anterior Bilateral Throughout] Blood Pressure 100/58 97/58 O2 Sat by Pulse 100 91 Oximetry 04/25/22 04/25/22 04/25/22 09:30 09:45 09:59 Temperature Pulse Rate 105 H 105 H Pulse Rate [ Anterior Bilateral Throughout] Pulse Rate [ From Monitor] Respiratory 18 20 Rate Respiratory Rate [Anterior Bilateral Throughout] Blood Pressure 117/63 105/60 O2 Sat by Pulse 91 90 99 Oximetry 04/25/22 04/25/22 04/25/22 10:00 10:15 10:30 Temperature Pulse Rate 103 H 105 H 102 H Pulse Rate [ Anterior Bilateral Throughout] Pulse Rate [ From Monitor] Respiratory 29 H 27 H 28 H Rate Respiratory Rate [Anterior Bilateral Throughout] Blood Pressure 112/51 102/53 109/42 O2 Sat by Pulse 92 91 93 Oximetry 04/25/22 04/25/22 10:45 11:00 Temperature Pulse Rate 106 H 110 H Pulse Rate [ Anterior Bilateral Throughout] Pulse Rate [ From Monitor] Respiratory 26 H 24 Rate Respiratory Rate [Anterior Bilateral Throughout] Blood Pressure 103/52 99/54 O2 Sat by Pulse 91 92 Oximetry - Lab 04/25/22 04:11 04/25/22 04:11 Most recent lab results Calcium 9.3 mg/dL (8.4-10.2) 04/25/22 04:11 Phosphorus 2.50 mg/dL (2.5-4.5) 04/24/22 04:00 Magnesium 1.80 mg/dL (1.7-2.3) 04/24/22 04:00 Medications & Allergies - Medications Allergies/Adverse Reactions: Allergies buspirone [From BuSpar] Allergy (Verified 04/18/22 12:22) Unknown Penicillins Allergy (Verified 04/18/22 12:22) Rash corn Adverse Reaction (Verified 04/18/22 12:22) Unknown Home Medications: Home Medications Medication Instructions Recorded Confirmed Last Taken Type Sevelamer Carbonate [Renvela] 0.8 gram PO TIDWM 09/02/20 02/02/22 05/31/21 History HYDROcodone/APAP 5-325 [[place] 1 each PO Q4HR PRN #30 tablet 05/18/21 02/02/22 Unknown Rx 5-325 mg TAB] ALBUTEROL NEB's [Proventil 0.083% 2.5 mg IH Q3HRT PRN #1 nebu 03/03/22 Unknown Rx NEBS] Clopidogrel [Plavix] 75 mg PO QDAY #90 tablet 03/03/[address] [Depakote Dr] 750 mg PO BID #60 tablet 03/03/22 Unknown Rx LORazepam [Ativan] 1 mg PO DAILY #30 tab 03/03/22 Unknown Rx Memantine Xr [Namenda Xr] 5 mg PO DAILY #30 cap 03/03/22 Unknown Rx Midodrine [Proamatine] 10 mg PO TID #90 tab 03/03/22 Unknown Rx Pantoprazole [Protonix TAB] 40 mg PO DAILY #30 tab 03/03/22 Unknown Rx QUEtiapine [SEROquel] 400 mg PO BID #60 tab 03/03/22 Unknown Rx risperiDONE [RisperDAL] 0.5 mg PO BID #60 tab 03/03/22 Unknown Rx Active Medications: Generic Name Dose Route Start Last Admin Trade Name Freq PRN Reason Stop Dose Admin Acetaminophen 650 mg 04/22/22 20:12 04/24/22 17:55 Acetaminophen 325 Mg/10.15 Ml Oral Liqd Unit Dose PO 650 mg Q6H PRN Administration Pain MILD(1-3)/Fever >100.5/DRAKE Albumin Human 25 gm 04/21/22 13:00 04/22/22 16:31 Albumin Human 25% (25 Gm/100 Ml) Inj IV 25 gm BIANCA PRN Administration Hypotension Albuterol 2.5 mg 04/21/22 08:30 04/24/22 16:51 Albuterol 2.5 Mg/3 Ml Nebu IH 2.5 mg Q3HRT PRN Administration Shortness Of Breath Albuterol/Ipratropium 1 ampul 04/21/22 14:00 04/25/22 08:51 Ipratropium/Albuterol Sulfate 3 Ml Ampul.Neb IH 1 ampul TIDRT CONNOR Administration Clopidogrel Bisulfate 75 mg 04/23/22 10:00 04/25/22 09:43 Clopidogrel 75 Mg Tab FEEDTUBE 75 mg QDAY CONNOR Administration Epoetin Lb-epbx 20,000 unit 04/23/22 12:00 Epoetin Lb-Epbx 20,000 Unit/1 Ml Vial IV BIANCA PRN HEMODIALYSIS NORepinephrine/NS 8 MG-250 ML 8 mg in 250 mls @ 3.75 mls/hr 04/19/22 09:00 04/24/22 12:45 Norepinephrine/Ns 8 Mg-250 Ml (Double Conc) IV 0 mcg/min TITRATE CONNOR 0 mls/hr Titration Protocol 2 MCG/MIN Sodium Chloride 100 mls @ 999 mls/hr 04/22/22 09:12 Nacl 0.9% IV BIANCA PRN Hypotension Sodium Chloride 500 mls @ 0 mls/hr 04/25/22 10:00 Nacl 0.9% 500 Ml IV 04/25/22 23:59 ONCE NR As Directed Lansoprazole 30 mg 04/23/22 10:00 04/25/22 09:43 Lansoprazole 30 Mg Solutab FEEDTUBE 30 mg QDAY CONNOR Administration Lorazepam 0.5 mg 04/25/22 09:59 Lorazepam 0.5 Mg Tab FEEDTUBE QDAY PRN Anxiety Memantine 5 mg 04/25/22 10:00 Memantine 5 Mg Tab FEEDTUBE BID CONNOR Metoclopramide HCl 5 mg 04/19/22 09:55 Metoclopramide 10 Mg/2 Ml Inj IV Q6H PRN Nausea And Vomiting Midodrine 15 mg 04/25/22 10:00 04/25/22 10:50 Midodrine 5 Mg Tab FEEDTUBE Not Given 0800,1300,1800 CONNOR Naloxone HCl 0.1 mg 04/19/22 09:55 Naloxone 0.4 Mg/1 Ml Inj IV Q2MIN PRN Res Rate </= 8 or 02 SAT < 92% Quetiapine Fumarate 200 mg 04/25/22 22:00 Quetiapine 200 Mg Tab FEEDTUBE QHS CONNOR Quetiapine Fumarate 100 mg 04/26/22 10:00 Quetiapine 100 Mg Tab FEEDTUBE QAM CONNOR Risperidone 0.5 mg 04/25/22 11:00 04/25/22 11:29 Risperidone 1 Mg Tab FEEDTUBE Not Given BID CONNOR Senna 17.2 mg 04/23/22 10:00 04/25/22 09:43 Sennosides 8.6 Mg Tab FEEDTUBE 17.2 mg BID CONNOR Administration Sevelamer Carbonate 800 mg 04/19/22 12:00 04/25/22 08:55 Sevelamer Carbonate 800 Mg Tab PO 800 mg TIDWM CONNOR Administration Sodium Chloride 10 ml 04/19/22 12:00 04/25/22 09:43 Sodium Chloride 0.9% 10 Ml Flush Syringe IV 10 ml BID CONNOR Administration Sodium Chloride 10 ml 04/19/22 11:19 Sodium Chloride 0.9% 10 Ml Flush Syringe IV PRN PRN LINE FLUSH Valproic Acid 750 mg 04/22/22 22:00 04/25/22 09:43 Valproic Acid 250 Mg/5 Ml Oral Liqd FEEDTUBE 750 mg BID CONNOR Administration
--- NOTE | 2022-04-25 14:05 | Progress Note ---
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, SVT Neuro: h/o vascular dementia, schizophrenia, bipolar, anxiety disorder -Continue home Seroquel at reduced dose -As needed Ativan -Reorientation as needed -Maintain sleep-wake cycle -As needed analgesia -Continue home memantine, Seroquel, respiradol, valproic acid -CT head showed no acute intracranial abnormalities, no significant interval changes -psych consulted, appreciate recommendations Cardiac: SVT s/p cardioversion, chronic hypotension, NSTEMI type II -Cardiology consulted, appreciate recommendations -Blood pressure monitoring per protocol -s/p vasopressor support with Levophed -MAP goal 60 -Continue home midodrine -Echo 01/31/2022-EF 60 to 65%. Doppler flow pattern suggests impaired LV relax ation. Right ventricle systolic function is normal trace aortic regurgitation. Trace mitral regurgitation. -Lipitor, Plavix Respiratory: Acute hypoxic respiratory failure -CCM consulted, appreciate recommendations -Chest ultrasound shows bilateral pleural effusions, right greater than left -Supplemental oxygen as needed -Pulmonary hygiene -SPO2 monitor per protocol GI: Moderate protein calorie malnutrition -24 hours +1428 mL -PPI -Renal diet -BR: Senokot : ESRD on HD, hyperkalemia -Nephrology consulted, appreciate recommendations -HD per nephrology -Strict intake and output -Renally dose medications -Avoid nephrotoxic medications -Epogen 3 times daily -Trend BMP ID: NAD -f/u blood culture -04/19 blood cultures x2 NGTD -Monitor WBC and temperature curve Endo: NAD -Avoid hypoglycemia Heme: Anemia of chronic disease -Trend CBC -Transfuse hemoglobin less than 7 -hgb 6.7 -1 unit prbc with HD today -Epogen 3 times daily -SCDs to BLE while in bed The high probability of a clinically significant, sudden or life threatening deterioration of the [multiple] system(s) required my full and direct attention, intervention and personal management. The aggregate critical care time was [60] minutes. This time is in addition to time spent performing reported procedures but includes the following: [x] Data Review and interpretation [x] Patient assessment and monitoring of vital signs [x] Documentation [x] Medication orders and management Disposition Plan: icu Total Time Spent with Patient (Minutes): 60 History Interval history: This is a 66-year-old female with HTN, GERD, seizure disorder, vascular dementia, ESRD on HD (TTS), OA, chronic hypotension, bipolar, schizophrenia, anxiety examined mobility with a resident of [facility] present to the emergency department on 04/19 with altered mental status and for being c ombative causing her to miss several days of hemodialysis. On presentation patient was found to be more hypertensive than usual and on room air with oxygen saturations in the 90s and she subsequently went into SVT into the 150s requiring cardioversion under conscious sedation. Patient was admitted to the hospital service with acute hypoxic respiratory failure, acute on chronic hypotension, acute on chronic metabolic encephalopathy, SVT, hyperkalemia, NSTEMI type II to the ICU with consults to CCM, nephrology cardiology and psych. Hospital Course to Date: 04/20: Patient went into Afib with RVR overnight, now on amiodarone gtt per cardio. Patient remains in AFib with RVR this am, HR in the 120-140s. BP marginal on Levophed gtt, currently not a candidate for BB. Midodrine increased to 15mg TID. 2D Echo pending. On heparin gtt per protocol. No HD today per nephro due to hypotension and tachycardia. 04/21: Converted to SR this am, remains on Amiodarone and heparin. Awaiting cardio final recommendations. Still on Levophed gtt for low BP, given patient history of chronic hypotension, Wean pressor for MAP goal of 60s. Patient is pocketing foods, currently NPO, awaiting speech eval and treat. 04/22: Patient passed speech swallow eval yesterday, however, patient is refusing PO intakes including meds. Will insert DHT for nutrition and meds administration. Patient remains in SR this am, amiodaron gtt transitioned to PO per cardio. Patient remains on heparin and Levophed gtt. Patient has not received PO midrodrine for 24hrs, resume meds once DHT is inserted. Keep femoral CVC for another 24hrs, anticipating will be able to wean off pressor once patient receive midodrine. Will reassess in the morning. No HD overnight, unable to cannulate AVF, plan to attempt again today per Nephro. Possible IR/Vascular surgery consult if unsuccessful again today. 04/23: Mentation a lot better this am. DHT was inserted, meds resumed and TF initiated. Levophed gtt increased overnight due to worsen hypotension, suspected it is due to sedative agents. Seroquel decreased to 200mg BID and scheduled ativan switched to PRN. Continue midodrine TID and wean off levophed gtt for MAP goal of 60. Patient tolerated HD yesterday, continue iHD per Nephrology. CCM recommendations noted, Chest US ordered for pleural effusion. 04/24: RN instructed to wean Levophed off, goal MAP of 60. Heparin drip stopped due to decreasing hemoglobin. 04/25: ST had cleared the patient for pured diet which will be started today, hemodialysis planned for today, patient was to be anemic and will receive 1 unit PRBC with HD. We will increase midodrine to 20 mg 3 times daily if patient becomes hypotensive during dialysis. Per CCM. Decrease in seroqoul but will increase if needed Hospitalist Physical - Constitutional Vitals: Temp Pulse Resp BP Pulse Ox 98.9 F 110 H 24 99/54 92 04/25/22 08:00 04/25/22 11:00 04/25/22 11:00 04/25/22 11:00 04/25/22 11:00 General appearance: Present: no acute distress, well-nourished - EENT Eyes: Present: PERRL, EOM intact ENT: hearing intact - Neck Neck: Present: normal ROM - Respiratory Respiratory effort: normal Respiratory: bilateral: CTA - Cardiovascular Rhythm: regular Heart Sounds: Present: S1 & S2. Absent: systolic murmur, diastolic murmur - Extremities Extremities: no ischemia, pulses intact, pulses symmetrical, No edema, normal temperature, normal color Peripheral Pulses: within normal limits - Abdominal General gastrointestinal: soft, non-tender, non-distended, normal bowel sounds - Integumentary Integumentary: Present: warm, dry - Psychiatric Psychiatric: appropriate mood/affect, cooperative - Neurologic Neurologic: CNII-XII intact, no focal deficits, moves all extremities - Allied Health Allied health notes reviewed: nursing, social work HEART Score - HEART Score Troponin: Troponin T 0.415 ng/mL (0.00-0.029) H* 04/19/22 04:53 Results - Labs CBC & Chem 7: 04/25/22 04:11 04/25/22 04:11 Labs: Laboratory Last Values WBC 4.4 K/mm3 (4.5-11.0) L 04/25/22 04:11 RBC 2.38 M/mm3 (3.65-5.03) L 04/25/22 04:11 Hgb 6.7 gm/dl (10.1-14.3) L 04/25/22 04:11 Hct 21.7 % (30.3-42.9) L 04/25/22 04:11 MCV 92 fl (79-97) 04/25/22 04:11 MCH 28 pg (28-32) 04/25/22 04:11 MCHC 31 % (30-34) 04/25/22 04:11 RDW 17.2 % (13.2-15.2) H 04/25/22 04:11 Plt Count 262 K/mm3 (140-440) 04/25/22 04:11 Lymph % (Auto) 26.7 % (13.4-35.0) 04/20/22 05:30 Potter % (Auto) 15.2 % (0.0-7.3) H 04/20/22 05:30 Eos % (Auto) 3.8 % (0.0-4.3) 04/20/22 05:30 Baso % (Auto) 1.2 % (0.0-1.8) 04/20/22 05:30 Lymph # (Auto) 1.1 K/mm3 (1.2-5.4) L 04/20/22 05:30 Potter # (Auto) 0.6 K/mm3 (0.0-0.8) 04/20/22 05:30 Eos # (Auto) 0.2 K/mm3 (0.0-0.4) 04/20/22 05:30 Baso # (Auto) 0.0 K/mm3 (0.0-0.1) 04/20/22 05:30 Seg Neutrophils % 53.1 % (40.0-70.0) 04/20/22 05:30 Seg Neutrophils # 2.2 K/mm3 (1.8-7.7) 04/20/22 05:30 PT 17.9 Sec. (12.2-14.9) H 04/19/22 19:40 INR 1.28 (0.87-1.13) H 04/19/22 19:40 APTT 199.1 Sec. (24.2-36.6) H* 04/19/22 19:40 Heparin Anti-Xa Level < 0.10 U.I./ml (0.3-0.7) L 04/24/22 10:20 Sodium 134 mmol/L (137-145) L 04/25/22 04:11 Potassium 3.9 mmol/L (3.6-5.0) 04/25/22 04:11 Chloride 97.1 mmol/L (98-107) L 04/25/22 04:11 Carbon Dioxide 23 mmol/L (22-30) 04/25/22 04:11 Anion Gap 18 mmol/L 04/25/22 04:11 BUN 47 mg/dL (7-17) H 04/25/22 04:11 Creatinine 4.3 mg/dL (0.6-1.2) H 04/25/22 04:11 Estimated GFR 12 ml/min 04/25/22 04:11 BUN/Creatinine Ratio 11 % 04/25/22 04:11 Glucose 106 mg/dL (65-100) H 04/25/22 04:11 POC Glucose 137 mg/dL (70-105) H 04/25/22 06:01 Lactic Acid 1.60 mmol/L (0.7-2.0) 04/19/22 07:14 Calcium 9.3 mg/dL (8.4-10.2) 04/25/22 04:11 Phosphorus 2.50 mg/dL (2.5-4.5) 04/24/22 04:00 Magnesium 1.80 mg/dL (1.7-2.3) 04/24/22 04:00 Total Bilirubin 0.30 mg/dL (0.1-1.2) 04/20/22 05:30 AST 11 units/L (5-40) 04/20/22 05:30 ALT 7 units/L (7-56) 04/20/22 05:30 Alkaline Phosphatase 101 units/L (35-129) 04/20/22 05:30 Ammonia 25.0 umol/L (25-60) 04/19/22 04:53 Troponin T 0.415 ng/mL (0.00-0.029) H* 04/19/22 04:53 Total Protein 6.4 g/dL (6.3-8.2) 04/20/22 05:30 Albumin 2.4 g/dL (3.9-5) L 04/20/22 05:30 Albumin/Globulin Ratio 0.6 % 04/20/22 05:30 TSH 1.700 mlU/mL (0.270-4.200) 04/19/22 04:53 Free T4 0.28 ng/dL (0.76-1.46) L 04/19/22 04:53 Hepatitis A IgM Ab Non-reactive (NonReactive) 04/19/22 04:53 Hep Bs Antigen Non-reactive (Negative) 04/19/22 04:53 Hep B Core IgM Ab Non-reactive (NonReactive) 04/19/22 04:53 Hepatitis C Antibody Non-reactive (NonReactive) 04/19/22 04:53 Cleary/IV: Voiding Method Incontinent Active Medications - Current Medications Current Medications: Generic Name Dose Route Start Last Admin Trade Name Freq PRN Reason Stop Dose Admin Acetaminophen 650 mg 04/22/22 20:12 04/24/22 17:55 Acetaminophen 325 Mg/10.15 Ml Oral Liqd Unit Dose PO 650 mg Q6H PRN Administration Pain MILD(1-3)/Fever >100.5/DRAKE Albumin Human 25 gm 04/21/22 13:00 04/22/22 16:31 Albumin Human 25% (25 Gm/100 Ml) Inj IV 25 gm BIANCA PRN Administration Hypotension Albuterol 2.5 mg 04/21/22 08:30 04/24/22 16:51 Albuterol 2.5 Mg/3 Ml Nebu IH 2.5 mg Q3HRT PRN Administration Shortness Of Breath Albuterol/Ipratropium 1 ampul 04/21/22 14:00 04/25/22 08:51 Ipratropium/Albuterol Sulfate 3 Ml Ampul.Neb IH 1 ampul TIDRT CONNOR Administration Clopidogrel Bisulfate 75 mg 04/23/22 10:00 04/25/22 09:43 Clopidogrel 75 Mg Tab FEEDTUBE 75 mg QDAY CONNOR Administration Epoetin Lb-epbx 20,000 unit 04/23/22 12:00 Epoetin Lb-Epbx 20,000 Unit/1 Ml Vial IV BIANCA PRN HEMODIALYSIS NORepinephrine/NS 8 MG-250 ML 8 mg in 250 mls @ 3.75 mls/hr 04/19/22 09:00 04/24/22 12:45 Norepinephrine/Ns 8 Mg-250 Ml (Double Conc) IV 0 mcg/min TITRATE CONNOR 0 mls/hr Titration Protocol 2 MCG/MIN Sodium Chloride 100 mls @ 999 mls/hr 04/22/22 09:12 Nacl 0.9% IV BIANCA PRN Hypotension Sodium Chloride 500 mls @ 0 mls/hr 04/25/22 10:00 Nacl 0.9% 500 Ml IV 04/25/22 23:59 ONCE NR As Directed Lansoprazole 30 mg 04/23/22 10:00 04/25/22 09:43 Lansoprazole 30 Mg Solutab FEEDTUBE 30 mg QDAY CONNOR Administration Lorazepam 0.5 mg 04/25/22 09:59 Lorazepam 0.5 Mg Tab FEEDTUBE QDAY PRN Anxiety Memantine 5 mg 04/25/22 10:00 Memantine 5 Mg Tab FEEDTUBE BID CONNOR Metoclopramide HCl 5 mg 04/19/22 09:55 Metoclopramide 10 Mg/2 Ml Inj IV Q6H PRN Nausea And Vomiting Midodrine 15 mg 04/25/22 10:00 04/25/22 10:50 Midodrine 5 Mg Tab FEEDTUBE Not Given 0800,1300,1800 CONNOR Naloxone HCl 0.1 mg 04/19/22 09:55 Naloxone 0.4 Mg/1 Ml Inj IV Q2MIN PRN Res Rate </= 8 or 02 SAT < 92% Quetiapine Fumarate 200 mg 04/25/22 22:00 Quetiapine 200 Mg Tab FEEDTUBE QHS CONNOR Quetiapine Fumarate 100 mg 04/26/22 10:00 Quetiapine 100 Mg Tab FEEDTUBE QAM CONNOR Risperidone 0.5 mg 04/25/22 11:00 04/25/22 11:29 Risperidone 1 Mg Tab FEEDTUBE Not Given BID CONNOR Senna 17.2 mg 04/23/22 10:00 04/25/22 09:43 Sennosides 8.6 Mg Tab FEEDTUBE 17.2 mg BID CONNOR Administration Sevelamer Carbonate 800 mg 04/19/22 12:00 04/25/22 08:55 Sevelamer Carbonate 800 Mg Tab PO 800 mg TIDWM CONNOR Administration Sodium Chloride 10 ml 04/19/22 12:00 04/25/22 09:43 Sodium Chloride 0.9% 10 Ml Flush Syringe IV 10 ml BID CONNOR Administration Sodium Chloride 10 ml 04/19/22 11:19 Sodium Chloride 0.9% 10 Ml Flush Syringe IV PRN PRN LINE FLUSH Valproic Acid 750 mg 04/22/22 22:00 04/25/22 09:43 Valproic Acid 250 Mg/5 Ml Oral Liqd FEEDTUBE 750 mg BID CONNOR Administration Nutrition/Malnutrition Assess - Dietary Evaluation Nutrition/Malnutrition Findings: Nutrition Notes Start: 04/19/22 17:39 Freq: Status: Active Protocol: Document 04/24/22 14:13 MIRIAN (Rec: 04/24/22 14:54 MIRIAN [id number]) Nutrition Notes Initial or Follow up Reassessment Current Diagnosis CKD (stage V CKD),Hypertension ,Malnutrition Other Pertinent Diagnosis Metabolic Encephalopathy, ESRD +HD, Anemia, NSTEMI II, Hypotension, SIRS,... Current Diet Nepro w/CARBSTEADY @ 30 ml/hr (since D 04/22). Labs/Tests 04/24: Na 134, BUN 42, Crea 3. 9, Glu 141. Pertinent Medications 04/24: Renvela, others nutritionally unremarkable. 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 No body weight change reported in 5 days. Weight Status Appropriate Subjective/Other Information RD consult for TF tolerance/ continuation assessment. TF continues as prescribed, No further information available at the time. SHOT FIREMAN notes on 04/21/22 13:28: Swallowing function has been assessed. Patient holds the bolus in the oral cavity for an extended period of time prior to initiating a swallow. This is attributed to her diminished mental acuity. Recommend a pureed diet with thins. However, intake must be monitored closely to ensure she eats a sufficient amount to maintain adequate nutritional support. Will continue to follow to determine if the diet may be upgraded pending her mental status. - END OF NOTE. Pt is on Room Air, O2 saturation @ 95%, according to Physical Assessment History notes. Percent of energy/protein needs met: Prescribed Nepro w/CARBSTEADY @ 30 ml/hr provides for energy /protein needs (1,269 Kcal/58 g) during LOS, 102% Kcal; 89% AA. GI Symptoms None Food Allergy Yes Skin Integrity/Comment Healing Sacral wound, intact. 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 Patient holds the bolus in the oral cavity for an extended period of time prior to initiating a swallow. This is attributed to her diminished mental acuity. Recommend a pureed diet with thins. However, intake must be monitored closely to ensure she eats a sufficient amount to maintain adequate nutritional support. Will continue to follow to determine if the diet may be upgraded pending her mental status. - END OF NOTE. Diagnosis Progress(for reassessment Continues documentation) Is patient on ventilator? No Is Patient Ambulatory and/or Out of Bed No REE-([place]or-confined to bed) [phone] [facility] Additional Notes Protein: >1.2 g/Kg ABW; >65 g/ day. Fluids: 1-1.5 L/day, or as per MD. Nutrition Intervention Nutrition Support: Continue Nepro w/CARBSTEADY @ 30 ml/hr. Flush: 130 ml water Q 4 hr, or as per MD. Kcal 1,269 Protein (gm) 58 Carbohydrates (gm) 116 Fat (gm) 58 Fluid (mL) 523 Fiber (gm) 9 % RDI: 102% Kcal; 89% AA. Goal #1 Provide at least 75% of energy /protein needs through Enteral Feeding during LOS. Follow-Up By: 05/01/22 Additional Comments Continue monitoring TF tolerance, vasopressors, and BM. <AMAURY KIM - Last Filed: 05/08/22 11:43> History Interval history: I saw and evaluated the patient. I agree with the findings and the plan of care as documented in the Nurse Practitioner's~note, with the following corrections and additions. Hospitalist Physical - Constitutional Vitals: Temp Pulse Resp BP Pulse Ox 97.8 F 104 H 12 114/44 99 05/08/22 07:16 05/08/22 11:15 05/08/22 11:15 05/08/22 11:15 05/08/22 11:15 HEART Score - HEART Score Troponin: Troponin T 0.415 ng/mL (0.00-0.029) H* 04/19/22 04:53 Results - Labs CBC & Chem 7: 05/08/22 04:06 05/08/22 04:06 Labs: Laboratory Last Values WBC 6.6 K/mm3 (4.5-11.0) 05/08/22 04:06 RBC 2.87 M/mm3 (3.65-5.03) L 05/08/22 04:06 Hgb 8.2 gm/dl (10.1-14.3) L 05/08/22 04:06 Hct 25.8 % (30.3-42.9) L 05/08/22 04:06 MCV 90 fl (79-97) 05/08/22 04:06 MCH 29 pg (28-32) 05/08/22 04:06 MCHC 32 % (30-34) 05/08/22 04:06 RDW 16.2 % (13.2-15.2) H 05/08/22 04:06 Plt Count 118 K/mm3 (140-440) L 05/08/22 04:06 Lymph % (Auto) 26.7 % (13.4-35.0) 04/20/22 05:30 Potter % (Auto) 15.2 % (0.0-7.3) H 04/20/22 05:30 Eos % (Auto) 3.8 % (0.0-4.3) 04/20/22 05:30 Baso % (Auto) 1.2 % (0.0-1.8) 04/20/22 05:30 Lymph # (Auto) 1.1 K/mm3 (1.2-5.4) L 04/20/22 05:30 Potter # (Auto) 0.6 K/mm3 (0.0-0.8) 04/20/22 05:30 Eos # (Auto) 0.2 K/mm3 (0.0-0.4) 04/20/22 05:30 Baso # (Auto) 0.0 K/mm3 (0.0-0.1) 04/20/22 05:30 Add Manual Diff Complete 05/05/22 04:20 Total Counted 100 05/05/22 04:20 Seg Neutrophils % 53.1 % (40.0-70.0) 04/20/22 05:30 Seg Neuts % (Manual) 86.0 % (40.0-70.0) H 05/05/22 04:20 Band Neutrophils % 3.0 % 05/05/22 04:20 Lymphocytes % (Manual) 4.0 % (13.4-35.0) L 05/05/22 04:20 Reactive Lymphs % (Man) 0 % 05/05/22 04:20 Monocytes % (Manual) 6.0 % (0.0-7.3) 05/05/22 04:20 Eosinophils % (Manual) 1.0 % (0.0-4.3) 05/05/22 04:20 Basophils % (Manual) 0 % (0.0-1.8) 05/05/22 04:20 Metamyelocytes % 0 % 05/05/22 04:20 Myelocytes % 0 % 05/05/22 04:20 Promyelocytes % 0 % 05/05/22 04:20 Blast Cells % 0 % 05/05/22 04:20 Nucleated RBC % 1.0 % (0.0-0.9) H 05/05/22 04:20 Seg Neutrophils # 2.2 K/mm3 (1.8-7.7) 04/20/22 05:30 Seg Neutrophils # Man 11.0 K/mm3 (1.8-7.7) H 05/05/22 04:20 Band Neutrophils # 0.4 K/mm3 05/05/22 04:20 Lymphocytes # (Manual) 0.5 K/mm3 (1.2-5.4) L 05/05/22 04:20 Abs React Lymphs (Man) 0.0 K/mm3 05/05/22 04:20 Monocytes # (Manual) 0.8 K/mm3 (0.0-0.8) 05/05/22 04:20 Eosinophils # (Manual) 0.1 K/mm3 (0.0-0.4) 05/05/22 04:20 Basophils # (Manual) 0.0 K/mm3 (0.0-0.1) 05/05/22 04:20 Metamyelocytes # 0.0 K/mm3 05/05/22 04:20 Myelocytes # 0.0 K/mm3 05/05/22 04:20 Promyelocytes # 0.0 K/mm3 05/05/22 04:20 Blast Cells # 0.0 K/mm3 05/05/22 04:20 WBC Morphology Not Reportable 05/05/22 04:20 Hypersegmented Neuts Not Reportable 05/05/22 04:20 Hyposegmented Neuts Not Reportable 05/05/22 04:20 Hypogranular Neuts Not Reportable 05/05/22 04:20 Smudge Cells Not Reportable 05/05/22 04:20 Toxic Granulation Not Reportable 05/05/22 04:20 Toxic Vacuolation Not Reportable 05/05/22 04:20 Dohle Bodies Not Reportable 05/05/22 04:20 Pelger-Huet Anomaly Not Reportable 05/05/22 04:20 Ubaldo Rods Not Reportable 05/05/22 04:20 Platelet Estimate Consistent w auto 05/05/22 04:20 Clumped Platelets Not Reportable 05/05/22 04:20 Plt Clumps, EDTA Not Reportable 05/05/22 04:20 Large Platelets Not Reportable 05/05/22 04:20 Giant Platelets Not Reportable 05/05/22 04:20 Platelet Satelliting Not Reportable 05/05/22 04:20 Plt Morphology Comment Not Reportable 05/05/22 04:20 RBC Morphology Not Reportable 05/05/22 04:20 Dimorphic RBCs Not Reportable 05/05/22 04:20 Polychromasia Not Reportable 05/05/22 04:20 Hypochromasia 2+ 05/05/22 04:20 Poikilocytosis Not Reportable 05/05/22 04:20 Anisocytosis 1+ 05/05/22 04:20 Microcytosis Not Reportable 05/05/22 04:20 Macrocytosis Not Reportable 05/05/22 04:20 Spherocytes Not Reportable 05/05/22 04:20 Pappenheimer Bodies Not Reportable 05/05/22 04:20 Sickle Cells Not Reportable 05/05/22 04:20 Target Cells Not Reportable 05/05/22 04:20 Tear Drop Cells Not Reportable 05/05/22 04:20 Ovalocytes Not Reportable 05/05/22 04:20 Helmet Cells Not Reportable 05/05/22 04:20 [place] Bodies Not Reportable 05/05/22 04:20 [place] Rings Not Reportable 05/05/22 04:20 [place] Cells Not Reportable 05/05/22 04:20 Bite Cells Not Reportable 05/05/22 04:20 Crenated Cell Not Reportable 05/05/22 04:20 Elliptocytes Not Reportable 05/05/22 04:20 Acanthocytes (Spur) Not Reportable 05/05/22 04:20 Rouleaux Not Reportable 05/05/22 04:20 Hemoglobin C Crystals Not Reportable 05/05/22 04:20 Schistocytes Not Reportable 05/05/22 04:20 Malaria parasites Not Reportable 05/05/22 04:20 Torrey Bodies Not Reportable 05/05/22 04:20 Hem Pathologist Commnt No 05/05/22 04:20 PT 17.6 Sec. (12.2-14.9) H 05/04/22 04:26 INR 1.29 (0.87-1.13) H 05/04/22 04:26 APTT 39.4 Sec. (24.2-36.6) H 05/03/22 04:24 Heparin Anti-Xa Level < 0.10 U.I./ml (0.3-0.7) L 04/24/22 10:20 ABG pH 7.482 pH Units (7.350-7.450) H 05/08/22 04:40 ABG pCO2 35.2 mm Hg 05/08/22 04:40 ABG pO2 103.9 mm Hg (80.0-90.0) H 05/08/22 04:40 ABG HCO3 25.8 mmol/L (20.0-26.0) 05/08/22 04:40 ABG O2 Saturation 98.0 % (95.0-99.0) 05/08/22 04:40 ABG O2 Content 11.1 (0.0-44) 05/08/22 04:40 ABG Base Excess 2.3 mmol/L (-2.0-3.0) 05/08/22 04:40 ABG Hemoglobin 8.1 gm/dl (12.0-16.0) L 05/08/22 04:40 ABG Carboxyhemoglobin 1.8 % (0.0-5.0) 05/08/22 04:40 ABG Methemoglobin 0.2 % (0.0-1.5) 05/08/22 04:40 Oxyhemoglobin 96.0 % (95.0-99.0) 05/08/22 04:40 FiO2 30 % 05/08/22 04:40 Sodium 132 mmol/L (137-145) L 05/08/22 04:06 Potassium 3.3 mmol/L (3.6-5.0) L 05/08/22 04:06 Chloride 93.2 mmol/L (98-107) L 05/08/22 04:06 Carbon Dioxide 28 mmol/L (22-30) 05/08/22 04:06 Anion Gap 14 mmol/L 05/08/22 04:06 BUN 36 mg/dL (7-17) H 05/08/22 04:06 Creatinine 2.9 mg/dL (0.6-1.2) H 05/08/22 04:06 Estimated GFR 20 ml/min 05/08/22 04:06 BUN/Creatinine Ratio 12 % 05/08/22 04:06 Glucose 145 mg/dL (65-100) H 05/08/22 04:06 POC Glucose 123 mg/dL (70-105) H 05/07/22 23:23 Lactic Acid 1.60 mmol/L (0.7-2.0) 04/19/22 07:14 Calcium 8.9 mg/dL (8.4-10.2) 05/08/22 04:06 Phosphorus 2.00 mg/dL (2.5-4.5) L D 05/08/22 04:06 Magnesium 1.80 mg/dL (1.7-2.3) 05/08/22 04:06 Total Bilirubin 0.30 mg/dL (0.1-1.2) 04/20/22 05:30 AST 11 units/L (5-40) 04/20/22 05:30 ALT 7 units/L (7-56) 04/20/22 05:30 Alkaline Phosphatase 101 units/L (35-129) 04/20/22 05:30 Ammonia 25.0 umol/L (25-60) 04/19/22 04:53 Troponin T 0.415 ng/mL (0.00-0.029) H* 04/19/22 04:53 Total Protein 6.4 g/dL (6.3-8.2) 04/20/22 05:30 Albumin 2.4 g/dL (3.9-5) L 04/20/22 05:30 Albumin/Globulin Ratio 0.6 % 04/20/22 05:30 Procalcitonin 42.42 ng/mL (<0.15) 05/05/22 04:20 TSH 1.700 mlU/mL (0.270-4.200) 04/19/22 04:53 Free T4 0.28 ng/dL (0.76-1.46) L 04/19/22 04:53 Total Cortisol 24.4 mcg/dL () 04/27/22 04:45 Random Vancomycin 9.6 ug/mL (0-40.0) 05/07/22 04:15 Coronavirus (PCR) Negative (Negative) 05/03/22 11:30 Hepatitis A IgM Ab Non-reactive (NonReactive) 04/19/22 04:53 Hep Bs Antigen Non-reactive (Negative) 04/19/22 04:53 Hep B Core IgM Ab Non-reactive (NonReactive) 04/19/22 04:53 Hepatitis C Antibody Non-reactive (NonReactive) 04/19/22 04:53 Blood Type A POSITIVE 05/04/22 05:30 Antibody Screen Negative 05/04/22 05:30 Crossmatch See Detail 05/04/22 05:30 Microbiology: Microbiology 05/04/22 16:30 Peripheral/Venous Blood Culture - Preliminary NO GROWTH AFTER 72 HOURS 05/03/22 10:30 Bronchial Washings - Right Lower Lobe Respiratory Culture - Final Methicillin Resist S. Aureus 05/04/22 16:30 Peripheral/Venous Blood Culture - Preliminary Coag Negative Staphylococcus Cleary/IV: Voiding Method Incontinent Active Medications - Current Medications Current Medications: Generic Name Dose Route Start Last Admin Trade Name Freq PRN Reason Stop Dose Admin Acetaminophen 650 mg 04/22/22 20:12 05/03/22 23:41 Acetaminophen 325 Mg/10.15 Ml Oral Liqd Unit Dose PO 650 mg Q6H PRN Administration Pain MILD(1-3)/Fever >100.5/DRAKE Acetylcysteine 200 mg 05/05/22 14:00 05/08/22 09:15 Acetylcysteine 20% 200 Mg/1 Ml *For Inhalation Use* INHALATION 05/10/22 13:59 200 mg TID CONNOR Administration Albumin Human 25 gm 04/21/22 13:00 04/22/22 16:31 Albumin Human 25% (25 Gm/100 Ml) Inj IV 25 gm BIANCA PRN Administration Hypotension Albuterol 2.5 mg 04/21/22 08:30 04/24/22 16:51 Albuterol 2.5 Mg/3 Ml Nebu IH 2.5 mg Q3HRT PRN Administration Shortness Of Breath Albuterol/Ipratropium 1 ampul 04/21/22 14:00 05/08/22 09:15 Ipratropium/Albuterol Sulfate 3 Ml Ampul.Neb IH 1 ampul TIDRT CONNOR Administration Docusate Sodium 100 mg 05/01/22 22:00 05/08/22 11:27 Docusate Sodium 100 Mg/10 Ml Oral Liqd FEEDTUBE Not Given BID CONNOR Epoetin Lb-epbx 20,000 unit 04/23/22 12:00 05/06/22 19:23 Epoetin Lb-Epbx 20,000 Unit/1 Ml Vial IV 20,000 unit BIANCA PRN Administration HEMODIALYSIS Fentanyl 50 mcg 05/03/22 10:29 05/05/22 12:23 Fentanyl 100 Mcg/2 Ml Inj IV 25 mcg Q10MIN PRN Administration ANALGESIA Sodium Chloride 100 mls @ 999 mls/hr 04/22/22 09:12 Nacl 0.9% IV BIANCA PRN Hypotension Fentanyl Citrate 2,000 mcg in 100 mls @ 2.722 mls/hr 05/03/22 11:00 Fentanyl Drip Premix IV TITR CONNOR Protocol 1 MCG/KG/HR NORepinephrine/NS 8 MG-250 ML 8 mg in 250 mls @ 3.75 mls/hr 05/03/22 13:15 05/06/22 10:06 Norepinephrine/Ns 8 Mg-250 Ml (Double Conc) IV 0 mcg/min TITRATE CONNOR 0 mls/hr Titration Protocol 2 MCG/MIN Vasopressin 20 unit/ Sodium 101 mls @ 9.09 mls/hr 05/04/22 00:30 05/06/22 11:21 Chloride IV 0 units/min TITR CONNOR 0 mls/hr Infusion 0.03 UNITS/MIN Cefepime HCl 1 gm in 100 mls @ 200 mls/hr 05/04/22 18:00 05/07/22 17:11 Cefepime/Ns 1 Gm/100 Ml IV 200 mls/hr QPM CONNOR Administration Protocol Lansoprazole 30 mg 04/23/22 10:00 05/08/22 10:59 Lansoprazole 30 Mg Solutab FEEDTUBE 30 mg QDAY CONNOR Administration Lorazepam 0.5 mg 04/25/22 09:59 Lorazepam 0.5 Mg Tab FEEDTUBE QDAY PRN Anxiety Memantine 5 mg 04/25/22 10:00 05/08/22 10:57 Memantine 5 Mg Tab FEEDTUBE 5 mg BID CONNOR Administration Metoclopramide HCl 5 mg 04/19/22 09:55 Metoclopramide 10 Mg/2 Ml Inj IV Q6H PRN Nausea And Vomiting Midodrine 20 mg 04/26/22 14:00 05/08/22 10:59 Midodrine 10 Mg Tab FEEDTUBE 20 mg TID CONNOR Administration Naloxone HCl 0.1 mg 04/19/22 09:55 Naloxone 0.4 Mg/1 Ml Inj IV Q2MIN PRN Res Rate </= 8 or 02 SAT < 92% Polyethylene Glycol 17 gm 05/03/22 10:00 05/08/22 11:27 Polyethylene Glycol 3350 17 Gm Powder FEEDTUBE Not Given QDAY CONNOR Risperidone 0.5 mg 04/25/22 11:00 05/08/22 11:00 Risperidone 1 Mg Tab FEEDTUBE 0.5 mg BID CONNOR Administration Scopolamine 1 each 05/02/22 10:00 05/08/22 11:01 Scopolamine Transdermal Patch 72 Hr TD 1 each Q3D CONNOR Administration Senna 17.2 mg 04/23/22 10:00 05/08/22 11:27 Sennosides 8.6 Mg Tab FEEDTUBE Not Given BID CONNOR Sodium Chloride 10 ml 04/19/22 12:00 05/08/22 11:00 Sodium Chloride 0.9% 10 Ml Flush Syringe IV 10 ml BID CONNOR Administration Sodium Chloride 10 ml 04/19/22 11:19 Sodium Chloride 0.9% 10 Ml Flush Syringe IV PRN PRN LINE FLUSH Sodium Phosphate 250 mg 05/08/22 10:00 05/08/22 10:57 K-Phos Neutral 250 Mg Tab FEEDTUBE 05/09/22 09:59 250 mg QID CONNOR Administration Valproic Acid 750 mg 04/22/22 22:00 05/08/22 10:59 Valproic Acid 250 Mg/5 Ml Oral Liqd FEEDTUBE 750 mg BID CONNOR Administration Nutrition/Malnutrition Assess - Dietary Evaluation Nutrition/Malnutrition Findings: Nutrition Notes Start: 04/19/22 17:39 Freq: Status: Active Protocol: Document 05/05/22 14:44 SHILA (Rec: 05/05/22 14:55 SHILA [id number]) Nutrition Notes Initial or Follow up Reassessment Current Diagnosis CKD (stage V CKD),Sepsis, Respiratory Failure Other Pertinent Diagnosis Neurogenic dysphagia, metabolic encephalopathy, vascular dementia Current Diet No diet order in chart Labs/Tests Na 130 K 3.3 BUN 24 Cr 2.3 BG 163 Phos 1.5 Pertinent Medications Colace, Senokot, Miralax, Levophed gtt, Vasopressin gtt Height 5 ft 2 in Weight 54.43 kg [place] Body Weight (kg) 50.00 BMI 21.9 Weight Status Appropriate Subjective/Other Information PEG placed yesterday. Pt remains on vent and HD support . Observed Nepro infusing at 30ml/hr. No BM documented today. Bronchoscopy performed today. Percent of energy/protein needs met: 104% energy 90% pro Burn Absent Trauma Absent #1 Nutrition Diagnosis Inadequate oral intake, Swallowing difficulty Diagnosis Progress(for reassessment Continues documentation) Is patient on ventilator? Yes Is Patient Ambulatory and/or Out of Bed No REE-([facility]-confined to bed) [phone] Calculation Used for Recommendations [facility] Additional Notes Pro needs >1.2g/kg: >65g/day Fluid needs 1-1.5L/day Nutrition Intervention Nutrition Support: Continue Nepro at 30ml/hr with 130ml water flush q4h. Kcal 1,296 Protein (gm) 58 Carbohydrates (gm) 116 Fat (gm) 69 Fluid (mL) 523 Fiber (gm) 9 Goal #1 TF tolerance Goal #2 TF to meet at least 75% energy and pro needs Follow-Up By: 05/12/22 Additional Comments F/U: stable TF, vent status, wt, BM
--- NOTE | 2022-04-25 15:12 | Progress Note ---
Assessment and Plan Patient is a 66-year-old female with a past medical history of end-stage renal disease on hemodialysis, hypertension, seizure disorder, bipolar disorder, schizophrenia, anxiety, limited mobility, and vascular dementia who presented to the ED from [facility] assisted with report of altered mental status for several days AMS End-stage renal disease on hemodialysis-nephrology following SVT Hypotension Schizophrenia Vascular dementia Bipolar disorder Hypotension Echo 01/31/2022-EF 60 to 65%. Doppler flow pattern suggests impaired LV relaxation. Right ventricle systolic function is normal trace aortic regurgitation. Trace mitral regurgitation. Plan: Telemetry reviewed patient remains in sinus to sinus tach Due to anemia requiring PRBC transfusion will continue to hold anticoagulation Due to patient's mental status and comorbidities recommend conservative management No MARGOTH, ARB, beta-hernan due to hypotension Patient currently in sinus rhythm and has history of hypotension. Suspect hypotension is not of cardiac origin Agree with midodrine Defer volume management to nephrology due to patient renal function Pt seen in conjunction with Dr. Mojica, who agrees with the assessment and plan of care. - Patient Problems (1) Altered mental status Current Visit: Yes Status: Acute (2) Elevated troponin Current Visit: Yes Status: Acute (3) Uremic encephalopathy Current Visit: Yes Status: Acute (4) ESRD (end stage renal disease) on dialysis Current Visit: Yes Status: Chronic (5) Hypotension Current Visit: Yes Status: Chronic Qualifiers: (6) Schizophrenia Current Visit: Yes Status: Chronic Qualifiers: (7) Acute encephalopathy Current Visit: No Status: Acute (8) Bipolar disorder Current Visit: No Status: Acute (9) Cerebral atherosclerosis Current Visit: Yes Status: Chronic (10) Atrial fibrillation with RVR Current Visit: Yes Status: Acute (11) SVT (supraventricular tachycardia) Current Visit: Yes Status: Acute (12) Type 2 myocardial infarction Current Visit: Yes Status: Acute Subjective Date of service: 04/25/22 Principal diagnosis: AHRF; Shock; AMS; SVT; NSTEMI; ESRD; Protein calorie malnutrition Interval history: Patient resting in bed in no acute distress. Patients no longer on pressors Patient in sinus rhythm 90s to 100s Objective Vital Signs Temp Pulse Pulse Pulse Resp Resp BP 04/25/22 14:50 87 18 04/25/22 14:45 102 H 30 H 107/56 04/25/22 14:30 104 H 32 H 104/62 04/25/22 14:15 104 H 28 H 102/51 04/25/22 14:00 103 H 32 H 102/51 04/25/22 13:45 104 H 31 H 105/54 04/25/22 13:30 100 H 30 H 96/48 04/25/22 13:15 97 H 29 H 93/46 04/25/22 13:00 104 H 34 H 106/55 04/25/22 12:45 103 H 25 H 88/62 04/25/22 12:30 107 H 32 H 105/55 04/25/22 12:15 102 H 28 H 89/46 04/25/22 12:00 99.1 F 102 H 36 H 105/55 04/25/22 11:45 103 H 28 H 95/46 04/25/22 11:30 103 H 27 H 103/46 04/25/22 11:15 103 H 22 109/52 04/25/22 11:00 110 H 24 99/54 04/25/22 10:45 106 H 26 H 103/52 04/25/22 10:30 102 H 28 H 109/42 04/25/22 10:15 105 H 27 H 102/53 04/25/22 10:00 103 H 29 H 112/51 04/25/22 09:59 04/25/22 09:45 105 H 20 105/60 04/25/22 09:30 105 H 18 117/63 04/25/22 09:15 107 H 28 H 97/58 04/25/22 09:00 91 H 24 100/58 04/25/22 08:51 92 H 18 04/25/22 08:45 93 H 24 100/55 04/25/22 08:30 95 H 28 H 90/54 04/25/22 08:15 98 H 31 H 109/55 04/25/22 08:00 98.9 F 97 H 97 H 27 H 106/52 04/25/22 07:45 98 H 25 H 103/61 04/25/22 07:30 96 H 29 H 106/52 04/25/22 07:15 99 H 26 H 97/71 04/25/22 07:00 96 H 24 100/52 04/25/22 06:45 92 H 27 H 97/46 04/25/22 06:30 86 21 97/46 04/25/22 06:15 96 H 26 H 104/54 04/25/22 06:00 97 H 20 105/55 04/25/22 05:45 93 H 24 100/45 04/25/22 05:30 90 22 93/46 04/25/22 05:15 96 H 27 H 99/54 04/25/22 05:01 97 H 15 97/50 04/25/22 04:45 96 H 21 100/49 04/25/22 04:30 96 H 24 100/53 04/25/22 04:15 98 H 22 114/47 04/25/22 04:00 99.2 F 94 H 86 28 H 107/57 04/25/22 03:45 88 24 91/41 04/25/22 03:00 98 H 25 H 99/49 04/25/22 02:00 98 H 23 106/52 04/25/22 01:45 99 H 28 H 101/50 04/25/22 01:30 98 H 29 H 107/57 04/25/22 01:15 93 H 23 96/42 04/25/22 01:00 94 H 23 85/38 04/25/22 00:15 103 H 25 H 93/63 04/25/22 00:00 99.2 F 101 H 100 H 24 99/59 04/24/22 23:47 95 H 24 95/50 04/24/22 23:45 98 H 25 H 95/50 04/24/22 23:00 96 H 23 91/46 04/24/22 22:45 94 H 22 88/44 04/24/22 22:30 89 24 106/58 04/24/22 22:15 85 22 110/54 04/24/22 22:00 87 20 102/50 04/24/22 21:45 96 H 22 100/58 04/24/22 21:30 98 H 25 H 105/61 04/24/22 21:15 93 H 24 115/59 04/24/22 21:00 89 22 105/55 04/24/22 20:45 91 H 21 108/57 04/24/22 20:43 04/24/22 20:41 92 H 20 04/24/22 20:30 81 19 88/42 04/24/22 20:15 80 19 94/45 04/24/22 20:01 86 22 101/40 04/24/22 20:00 98.6 F 78 19 04/24/22 19:45 78 20 118/58 04/24/22 19:31 81 22 101/43 04/24/22 19:15 80 19 94/43 04/24/22 19:00 77 19 101/51 04/24/22 18:45 89 22 104/55 04/24/22 18:30 92 H 17 124/58 04/24/22 18:15 98 H 24 115/75 04/24/22 18:00 100 H 21 115/75 04/24/22 17:55 17 04/24/22 17:45 89 24 107/53 04/24/22 17:31 109 H 22 117/57 04/24/22 17:15 90 24 104/50 04/24/22 17:00 102 H 18 110/71 04/24/22 16:53 101 H 18 04/24/22 16:45 90 21 111/52 04/24/22 16:30 90 24 107/54 04/24/22 16:15 88 22 116/64 04/24/22 16:00 98.3 F 76 18 102/47 04/24/22 15:45 85 22 105/56 04/24/22 15:30 80 21 96/51 04/24/22 15:15 86 21 100/53 Pulse Ox 04/25/22 14:50 04/25/22 14:45 93 04/25/22 14:30 93 04/25/22 14:15 92 04/25/22 14:00 93 04/25/22 13:45 94 04/25/22 13:30 94 04/25/22 13:15 93 04/25/22 13:00 94 04/25/22 12:45 95 04/25/22 12:30 93 04/25/22 12:15 94 04/25/22 12:00 91 04/25/22 11:45 94 04/25/22 11:30 93 04/25/22 11:15 94 04/25/22 11:00 92 04/25/22 10:45 91 04/25/22 10:30 93 04/25/22 10:15 91 04/25/22 10:00 92 04/25/22 09:59 99 04/25/22 09:45 90 04/25/22 09:30 91 04/25/22 09:15 91 04/25/22 09:00 100 04/25/22 08:51 04/25/22 08:45 94 04/25/22 08:30 93 04/25/22 08:15 94 04/25/22 08:00 93 04/25/22 07:45 94 04/25/22 07:30 92 04/25/22 07:15 93 04/25/22 07:00 93 04/25/22 06:45 96 04/25/22 06:30 94 04/25/22 06:15 92 04/25/22 06:00 93 04/25/22 05:45 94 04/25/22 05:30 93 04/25/22 05:15 93 04/25/22 05:01 94 04/25/22 04:45 93 04/25/22 04:30 93 04/25/22 04:15 94 04/25/22 04:00 94 04/25/22 03:45 93 04/25/22 03:00 94 04/25/22 02:00 93 04/25/22 01:45 94 04/25/22 01:30 93 04/25/22 01:15 94 04/25/22 01:00 93 04/25/22 00:15 94 04/25/22 00:00 93 04/24/22 23:47 93 04/24/22 23:45 93 04/24/22 23:00 93 04/24/22 22:45 93 04/24/22 22:30 93 04/24/22 22:15 94 04/24/22 22:00 93 04/24/22 21:45 93 04/24/22 21:30 93 04/24/22 21:15 91 04/24/22 21:00 94 04/24/22 20:45 100 04/24/22 20:43 96 04/24/22 20:41 04/24/22 20:30 94 04/24/22 20:15 94 04/24/22 20:01 95 04/24/22 20:00 98 04/24/22 19:45 97 04/24/22 19:31 97 04/24/22 19:15 95 04/24/22 19:00 97 04/24/22 18:45 97 04/24/22 18:30 91 04/24/22 18:15 94 04/24/22 18:00 90 04/24/22 17:55 04/24/22 17:45 94 04/24/22 17:31 91 04/24/22 17:15 93 04/24/22 17:00 93 04/24/22 16:53 97 04/24/22 16:45 93 04/24/22 16:30 94 04/24/22 16:15 96 04/24/22 16:00 95 04/24/22 15:45 95 04/24/22 15:30 94 04/24/22 15:15 94 - Physical Examination General: No Apparent Distress HEENT: Positive: Normocephaly, Mucus Membranes Dry Neck: Positive: trachea midline. Negative: JVD/HJR Cardiac: Positive: Reg Rate and Rhythm Lungs: Positive: Rales Neuro: Positive: Other (unable to assess) Abdomen: Positive: Soft Skin: Negative: Rash Extremities: Present: upper extr. pulses, Cool. Absent: edema - Labs and Meds CBC 04/25/22 Range/Units 04:11 WBC 4.4 L (4.5-11.0) K/mm3 RBC 2.38 L (3.65-5.03) M/mm3 Hgb 6.7 L (10.1-14.3) gm/dl Hct 21.7 L (30.3-42.9) % Plt Count 262 (140-440) K/mm3 Comprehensive Metabolic Panel 04/25/22 Range/Units 04:11 Sodium 134 L (137-145) mmol/L Potassium 3.9 (3.6-5.0) mmol/L Chloride 97.1 L (98-107) mmol/L Carbon Dioxide 23 (22-30) mmol/L BUN 47 H (7-17) mg/dL Creatinine 4.3 H (0.6-1.2) mg/dL Glucose 106 H (65-100) mg/dL Calcium 9.3 (8.4-10.2) mg/dL - Imaging and Cardiology EKG: report reviewed, image reviewed Echo: report reviewed (TTE 01/31/2022 - EF 60 to 65%. Doppler flow pattern suggests impaired LV relaxation. Right ventricle systolic function is normal. Trace aortic regurgitation. Trace mitral regurgitation.) - Telemetry EKG Rhythm: Sinus Rhythm - EKG Sinus rhythms and dysrhythmias: sinus tachycardia Repolarization changes or abnormalities: nonspecific abnormality, ST segment, and/or T wave - Allied health notes Allied health notes reviewed: nursing
[2022-04-25] MEDS: EPOETIN ALFA-EPBX 20,000 UNIT/1 ML VIAL IV PRN (20:00)
[2022-04-25] MEDS: QUEtiapine 200 MG TAB FEEDTUBE SCH (21:50)
[2022-04-25 23:20] LABS: Hematocrit 28.1 % (30.3-42.9); Hemoglobin 8.8 gm/dl (10.1-14.3)
[2022-04-26 04:38] LABS: Hematocrit 25.4 % (30.3-42.9); Mean Corpuscular HGB Conc 32 % (30-34); Mean Corpuscular Volume 90 fl (79-97); Platelet Count 211 K/mm3 (140-440); Red Blood Count 2.81 M/mm3 (3.65-5.03); Red Cell Distribution Width 16.2 % (13.2-15.2)
[2022-04-26] MEDS: MIDODRINE 5 MG TAB FEEDTUBE SCH ×2 (08:02→18:49)
[2022-04-26] MEDS: SEVELAMER CARBONATE 800 MG TAB PO SCH (08:03)
[2022-04-26] MEDS: IPRATROPIUM/ALBUTEROL SULFATE 3 ML AMPUL.NEB IH SCH ×3 (08:56→20:10)
--- NOTE | 2022-04-26 09:14 | Progress Note ---
Assessment and Plan Impression: * End stage renal disease * AMS * SVT s/p cardioversion * SIRS * NSTEMI * Hypotension * Anemia secondary to ESRD * Secondary hyperparathyroidism Plan: * Will continue hemodialysis prn, last 04/22- plan to continue // if hemodynamically stable, s/p yesterday, no need for HD today per clinical assessment * Minimal UF removal given soft BP- adjust salt baths and temp prn * Dose medications for renal function * cardiology/pulmonary notes reviewed, appreciated * continue midodrine given soft BP * keep MAP>65, vasopressors prn * Avoid potential nephrotoxins * Epogen TIW prn * Renal/HD diet * Continue binders prn Subjective Date of service: 04/26/22 Principal diagnosis: AHRF; Shock; AMS; SVT; NSTEMI; ESRD; Protein calorie malnutrition Interval history: Seen in ICU, off pressor support (Levophed). Denies any concerning symptoms, resting in bed. HD yesterday without noted issues. Objective - Exam Narrative Exam: General: No acute distress Head: NC/AT Eyes: normal appearance Neck: Normal appearance Chest: coarse lung sounds CV: Regular rate and rhythm, right arm dialysis access Abdomen: Soft, normal bowel sounds, nontender, nondistended Neuro: alert, oriented, no focal deficits - Vital Signs Vital signs: Vital Signs - 12hr 04/25/22 04/25/22 04/25/22 21:15 21:30 21:45 Temperature Pulse Rate 108 H 108 H 112 H Pulse Rate [ Anterior Bilateral Throughout] Pulse Rate [ From Monitor] Respiratory 30 H 22 30 H Rate Respiratory Rate [Anterior Bilateral Throughout] Blood Pressure 110/56 115/50 114/69 O2 Sat by Pulse 96 94 94 Oximetry O2 Sat by Pulse Oximetry [ Anterior Bilateral Throughout] 04/25/22 04/25/22 04/25/22 21:48 21:50 22:00 Temperature 98.7 F Pulse Rate 114 H 115 H Pulse Rate [ Anterior Bilateral Throughout] Pulse Rate [ From Monitor] Respiratory 32 H 21 Rate Respiratory Rate [Anterior Bilateral Throughout] Blood Pressure 114/69 120/63 O2 Sat by Pulse 96 93 Oximetry O2 Sat by Pulse 98 Oximetry [ Anterior Bilateral Throughout] 04/25/22 04/25/22 04/25/22 22:15 22:31 22:37 Temperature Pulse Rate 114 H 127 H 113 H Pulse Rate [ Anterior Bilateral Throughout] Pulse Rate [ From Monitor] Respiratory 28 H 22 26 H Rate Respiratory Rate [Anterior Bilateral Throughout] Blood Pressure 110/56 114/90 114/90 O2 Sat by Pulse 94 95 99 Oximetry O2 Sat by Pulse Oximetry [ Anterior Bilateral Throughout] 04/25/22 04/25/22 04/25/22 22:45 23:00 23:15 Temperature Pulse Rate 118 H 115 H 113 H Pulse Rate [ Anterior Bilateral Throughout] Pulse Rate [ From Monitor] Respiratory 21 27 H 24 Rate Respiratory Rate [Anterior Bilateral Throughout] Blood Pressure 114/90 104/54 108/51 O2 Sat by Pulse 99 99 99 Oximetry O2 Sat by Pulse Oximetry [ Anterior Bilateral Throughout] 04/25/22 04/25/22 04/26/22 23:30 23:45 00:00 Temperature 99.2 F Pulse Rate 112 H 112 H 111 H Pulse Rate [ Anterior Bilateral Throughout] Pulse Rate [ 110 H From Monitor] Respiratory 29 H 26 H 26 H Rate Respiratory Rate [Anterior Bilateral Throughout] Blood Pressure 111/61 108/54 120/54 O2 Sat by Pulse 100 100 100 Oximetry O2 Sat by Pulse Oximetry [ Anterior Bilateral Throughout] 04/26/22 04/26/22 04/26/22 00:15 00:30 00:45 Temperature Pulse Rate 116 H 111 H 114 H Pulse Rate [ Anterior Bilateral Throughout] Pulse Rate [ From Monitor] Respiratory 32 H 26 H 27 H Rate Respiratory Rate [Anterior Bilateral Throughout] Blood Pressure 124/67 107/43 129/62 O2 Sat by Pulse 99 100 99 Oximetry O2 Sat by Pulse Oximetry [ Anterior Bilateral Throughout] 04/26/22 04/26/22 04/26/22 01:00 01:15 01:30 Temperature Pulse Rate 106 H 107 H 108 H Pulse Rate [ Anterior Bilateral Throughout] Pulse Rate [ From Monitor] Respiratory 26 H 26 H 31 H Rate Respiratory Rate [Anterior Bilateral Throughout] Blood Pressure 105/53 104/53 114/63 O2 Sat by Pulse 100 100 99 Oximetry O2 Sat by Pulse Oximetry [ Anterior Bilateral Throughout] 04/26/22 04/26/22 04/26/22 01:45 02:00 02:15 Temperature Pulse Rate 113 H 114 H 110 H Pulse Rate [ Anterior Bilateral Throughout] Pulse Rate [ From Monitor] Respiratory 31 H 27 H 29 H Rate Respiratory Rate [Anterior Bilateral Throughout] Blood Pressure 121/67 118/66 107/60 O2 Sat by Pulse 99 98 99 Oximetry O2 Sat by Pulse Oximetry [ Anterior Bilateral Throughout] 04/26/22 04/26/22 04/26/22 02:30 02:45 03:00 Temperature Pulse Rate 113 H 114 H 114 H Pulse Rate [ Anterior Bilateral Throughout] Pulse Rate [ From Monitor] Respiratory 27 H 31 H 32 H Rate Respiratory Rate [Anterior Bilateral Throughout] Blood Pressure 119/70 110/66 115/73 O2 Sat by Pulse 98 97 97 Oximetry O2 Sat by Pulse Oximetry [ Anterior Bilateral Throughout] 04/26/22 04/26/22 04/26/22 03:15 03:31 03:45 Temperature Pulse Rate 104 H 105 H 100 H Pulse Rate [ Anterior Bilateral Throughout] Pulse Rate [ From Monitor] Respiratory 24 25 H 26 H Rate Respiratory Rate [Anterior Bilateral Throughout] Blood Pressure 96/53 109/55 96/57 O2 Sat by Pulse 96 99 99 Oximetry O2 Sat by Pulse Oximetry [ Anterior Bilateral Throughout] 04/26/22 04/26/22 04/26/22 04:00 04:15 04:30 Temperature 99.2 F Pulse Rate 102 H 110 H 106 H Pulse Rate [ Anterior Bilateral Throughout] Pulse Rate [ 105 H From Monitor] Respiratory 25 H 20 26 H Rate Respiratory Rate [Anterior Bilateral Throughout] Blood Pressure 104/56 119/67 95/66 O2 Sat by Pulse 99 99 99 Oximetry O2 Sat by Pulse Oximetry [ Anterior Bilateral Throughout] 04/26/22 04/26/22 04/26/22 04:45 05:00 05:15 Temperature Pulse Rate 98 H 98 H 99 H Pulse Rate [ Anterior Bilateral Throughout] Pulse Rate [ From Monitor] Respiratory 22 24 25 H Rate Respiratory Rate [Anterior Bilateral Throughout] Blood Pressure 104/59 102/54 94/52 O2 Sat by Pulse 100 98 99 Oximetry O2 Sat by Pulse Oximetry [ Anterior Bilateral Throughout] 04/26/22 04/26/22 04/26/22 05:30 05:45 06:00 Temperature Pulse Rate 98 H 107 H 99 H Pulse Rate [ Anterior Bilateral Throughout] Pulse Rate [ From Monitor] Respiratory 25 H 22 22 Rate Respiratory Rate [Anterior Bilateral Throughout] Blood Pressure 102/50 109/61 99/47 O2 Sat by Pulse 98 99 100 Oximetry O2 Sat by Pulse Oximetry [ Anterior Bilateral Throughout] 04/26/22 04/26/22 04/26/22 06:15 06:30 06:45 Temperature Pulse Rate 99 H 97 H 99 H Pulse Rate [ Anterior Bilateral Throughout] Pulse Rate [ From Monitor] Respiratory 20 25 H 22 Rate Respiratory Rate [Anterior Bilateral Throughout] Blood Pressure 96/45 103/52 92/45 O2 Sat by Pulse 100 94 94 Oximetry O2 Sat by Pulse Oximetry [ Anterior Bilateral Throughout] 04/26/22 04/26/22 04/26/22 07:00 07:15 07:30 Temperature Pulse Rate 101 H 100 H 111 H Pulse Rate [ Anterior Bilateral Throughout] Pulse Rate [ From Monitor] Respiratory 29 H 23 29 H Rate Respiratory Rate [Anterior Bilateral Throughout] Blood Pressure 91/51 95/49 106/52 O2 Sat by Pulse 95 94 92 Oximetry O2 Sat by Pulse Oximetry [ Anterior Bilateral Throughout] 04/26/22 04/26/22 04/26/22 07:45 08:00 08:15 Temperature Pulse Rate 100 H 100 H 109 H Pulse Rate [ Anterior Bilateral Throughout] Pulse Rate [ From Monitor] Respiratory 24 23 28 H Rate Respiratory Rate [Anterior Bilateral Throughout] Blood Pressure 94/44 94/54 100/49 O2 Sat by Pulse 95 95 94 Oximetry O2 Sat by Pulse Oximetry [ Anterior Bilateral Throughout] 04/26/22 04/26/22 04/26/22 08:20 08:26 08:56 Temperature 97.5 F L Pulse Rate Pulse Rate [ 104 H Anterior Bilateral Throughout] Pulse Rate [ 109 H From Monitor] Respiratory 28 H Rate Respiratory 20 Rate [Anterior Bilateral Throughout] Blood Pressure O2 Sat by Pulse 100 Oximetry O2 Sat by Pulse Oximetry [ Anterior Bilateral Throughout] 04/26/22 08:57 Temperature Pulse Rate Pulse Rate [ Anterior Bilateral Throughout] Pulse Rate [ From Monitor] Respiratory Rate Respiratory Rate [Anterior Bilateral Throughout] Blood Pressure O2 Sat by Pulse 94 Oximetry O2 Sat by Pulse Oximetry [ Anterior Bilateral Throughout] - Lab 04/26/22 04:20 04/25/22 04:11 Most recent lab results Calcium 9.3 mg/dL (8.4-10.2) 04/25/22 04:11 Phosphorus 2.50 mg/dL (2.5-4.5) 04/24/22 04:00 Magnesium 1.80 mg/dL (1.7-2.3) 04/24/22 04:00 Medications & Allergies - Medications Allergies/Adverse Reactions: Allergies buspirone [From BuSpar] Allergy (Verified 04/18/22 12:22) Unknown Penicillins Allergy (Verified 04/18/22 12:22) Rash corn Adverse Reaction (Verified 04/18/22 12:22) Unknown Home Medications: Home Medications Medication Instructions Recorded Confirmed Last Taken Type Sevelamer Carbonate [Renvela] 0.8 gram PO TIDWM 09/02/20 02/02/22 05/31/21 Hist ory HYDROcodone/APAP 5-325 [[place] 1 each PO Q4HR PRN #30 tablet 05/18/21 02/02/22 Unknown Rx 5-325 mg TAB] ALBUTEROL NEB's [Proventil 0.083% 2.5 mg IH Q3HRT PRN #1 nebu 03/03/22 Unknown Rx NEBS] Clopidogrel [Plavix] 75 mg PO QDAY #90 tablet 03/03/[address] [Depakote Dr] 750 mg PO BID #60 tablet 03/03/22 Unknown Rx LORazepam [Ativan] 1 mg PO DAILY #30 tab 03/03/22 Unknown Rx Memantine Xr [Namenda Xr] 5 mg PO DAILY #30 cap 03/03/22 Unknown Rx Midodrine [Proamatine] 10 mg PO TID #90 tab 03/03/22 Unknown Rx Pantoprazole [Protonix TAB] 40 mg PO DAILY #30 tab 03/03/22 Unknown Rx QUEtiapine [SEROquel] 400 mg PO BID #60 tab 03/03/22 Unknown Rx risperiDONE [RisperDAL] 0.5 mg PO BID #60 tab 03/03/22 Unknown Rx Active Medications: Generic Name Dose Route Start Last Admin Trade Name Freq PRN Reason Stop Dose Admin Acetaminophen 650 mg 04/22/22 20:12 04/24/22 17:55 Acetaminophen 325 Mg/10.15 Ml Oral Liqd Unit Dose PO 650 mg Q6H PRN Administration Pain MILD(1-3)/Fever >100.5/DRAKE Albumin Human 25 gm 04/21/22 13:00 04/22/22 16:31 Albumin Human 25% (25 Gm/100 Ml) Inj IV 25 gm BIANCA PRN Administration Hypotension Albuterol 2.5 mg 04/21/22 08:30 04/24/22 16:51 Albuterol 2.5 Mg/3 Ml Nebu IH 2.5 mg Q3HRT PRN Administration Shortness Of Breath Albuterol/Ipratropium 1 ampul 04/21/22 14:00 04/26/22 08:56 Ipratropium/Albuterol Sulfate 3 Ml Ampul.Neb IH 1 ampul TIDRT CONNOR Administration Clopidogrel Bisulfate 75 mg 04/23/22 10:00 04/25/22 09:43 Clopidogrel 75 Mg Tab FEEDTUBE 75 mg QDAY CONNOR Administration Epoetin Lb-epbx 20,000 unit 04/23/22 12:00 04/25/22 20:00 Epoetin Lb-Epbx 20,000 Unit/1 Ml Vial IV 20,000 unit BIANCA PRN Administration HEMODIALYSIS NORepinephrine/NS 8 MG-250 ML 8 mg in 250 mls @ 3.75 mls/hr 04/19/22 09:00 04/24/22 12:45 Norepinephrine/Ns 8 Mg-250 Ml (Double Conc) IV 0 mcg/min TITRATE CONNOR 0 mls/hr Titration Protocol 2 MCG/MIN Sodium Chloride 100 mls @ 999 mls/hr 04/22/22 09:12 Nacl 0.9% IV BIANCA PRN Hypotension Lansoprazole 30 mg 04/23/22 10:00 04/25/22 09:43 Lansoprazole 30 Mg Solutab FEEDTUBE 30 mg QDAY CONNOR Administration Lorazepam 0.5 mg 04/25/22 09:59 Lorazepam 0.5 Mg Tab FEEDTUBE QDAY PRN Anxiety Memantine 5 mg 04/25/22 10:00 04/25/22 21:50 Memantine 5 Mg Tab FEEDTUBE 5 mg BID CONNOR Administration Metoclopramide HCl 5 mg 04/19/22 09:55 Metoclopramide 10 Mg/2 Ml Inj IV Q6H PRN Nausea And Vomiting Midodrine 15 mg 04/25/22 10:00 04/26/22 08:02 Midodrine 5 Mg Tab FEEDTUBE 15 mg 0800,1300,1800 CONNOR Administration Naloxone HCl 0.1 mg 04/19/22 09:55 Naloxone 0.4 Mg/1 Ml Inj IV Q2MIN PRN Res Rate </= 8 or 02 SAT < 92% Quetiapine Fumarate 200 mg 04/25/22 22:00 04/25/22 21:50 Quetiapine 200 Mg Tab FEEDTUBE 200 mg QHS CONNOR Administration Quetiapine Fumarate 100 mg 04/26/22 10:00 Quetiapine 100 Mg Tab FEEDTUBE QAM CONNOR Risperidone 0.5 mg 04/25/22 11:00 04/25/22 21:50 Risperidone 1 Mg Tab FEEDTUBE 0.5 mg BID CONNOR Administration Senna 17.2 mg 04/23/22 10:00 04/25/22 21:50 Sennosides 8.6 Mg Tab FEEDTUBE 17.2 mg BID CONNOR Administration Sevelamer Carbonate 800 mg 04/19/22 12:00 04/26/22 08:03 Sevelamer Carbonate 800 Mg Tab PO Not Given TIDWM CONNOR Sodium Chloride 10 ml 04/19/22 12:00 04/25/22 21:50 Sodium Chloride 0.9% 10 Ml Flush Syringe IV 10 ml BID CONNOR Administration Sodium Chloride 10 ml 04/19/22 11:19 Sodium Chloride 0.9% 10 Ml Flush Syringe IV PRN PRN LINE FLUSH Valproic Acid 750 mg 04/22/22 22:00 04/25/22 21:50 Valproic Acid 250 Mg/5 Ml Oral Liqd FEEDTUBE 750 mg BID CONNOR Administration
[2022-04-26] MEDS: QUEtiapine 100 MG TAB FEEDTUBE SCH (10:57)
[2022-04-26] MEDS: risperiDONE 1 MG TAB FEEDTUBE SCH ×2 (10:57→21:03)
[2022-04-26] MEDS: VALPROIC ACID 250 MG/5 ML ORAL LIQD FEEDTUBE SCH ×2 (10:57→21:03)
[2022-04-26] MEDS: CLOPIDOGREL 75 MG TAB FEEDTUBE SCH (10:57)
[2022-04-26] MEDS: SENNOSIDES 8.6 MG TAB FEEDTUBE SCH ×2 (10:57→21:03)
[2022-04-26] MEDS: LANSOPRAZOLE 30 MG SOLUTAB FEEDTUBE SCH (10:57)
[2022-04-26] MEDS: MEMANTINE 5 MG TAB FEEDTUBE SCH ×2 (12:22→21:03)
[2022-04-26] MEDS: MIDODRINE 10 MG TAB FEEDTUBE SCH ×2 (13:19→19:55)
--- NOTE | 2022-04-26 13:39 | Progress Note ---
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, SVT Neuro: h/o vascular dementia, schizophrenia, bipolar, anxiety disorder -Continue home Seroquel at reduced dose -As needed Ativan -Reorientation as needed -Maintain sleep-wake cycle -As needed analgesia -Continue home memantine, respiradol, valproic acid -CT head showed no acute intracranial abnormalities, no significant interval idris nges -psych consulted, appreciate recommendations Cardiac: SVT s/p cardioversion, chronic hypotension, NSTEMI type II -Cardiology consulted, appreciate recommendations -Blood pressure monitoring per protocol -s/p vasopressor support with Levophed -MAP goal 60 -Continue home midodrine -Echo 01/31/2022-EF 60 to 65%. Doppler flow pattern suggests impaired LV relaxation. Right ventricle systolic function is normal trace aortic regurgitation. Trace mitral regurgitation. -Lipitor, Plavix Respiratory: Acute hypoxic respiratory failure -CCM consulted, appreciate recommendations -Chest ultrasound shows bilateral pleural effusions, right greater than left -Supplemental oxygen as needed -Pulmonary hygiene -SPO2 monitor per protocol GI: Moderate protein calorie malnutrition -24 hours +1565 mL -PPI -Renal diet, pureed -TF -GI consulted for PEG tube placement -BR: Senokot : ESRD on HD, hyperkalemia -Nephrology consulted, appreciate recommendations -HD per nephrology -HD 05/05 with no fluid removal -Monitor intake and output -Renally dose medications -Avoid nephrotoxic medications -Epogen 3 times daily -Trend BMP ID: NAD -f/u blood culture -04/19 blood cultures x2 NGTD -Monitor WBC and temperature curve Endo: NAD -Avoid hypoglycemia Heme: Anemia of chronic disease -Trend CBC -Transfuse hemoglobin less than 7 -s/p 1 unit PRBC -Epogen 3 times daily -SCDs to BLE while in bed The high probability of a clinically significant, sudden or life threatening deterioration of the [multiple] system(s) required my full and direct attention, intervention and personal management. The aggregate critical care time was [60] minutes. This time is in addition to time spent performing reported procedures but includes the following: [x] Data Review and interpretation [x] Patient assessment and monitoring of vital signs [x] Documentation [x] Medication orders and management Disposition Plan: icu Total Time Spent with Patient (Minutes): 60 History Interval history: This is a 66-year-old female with HTN, GERD, seizure disorder, vascular dementia, ESRD on HD (TTS), OA, chronic hypotension, bipolar, schizophrenia, an xiety examined mobility with a resident of [facility] present to the emergency department on 04/19 with altered mental status and for being combative causing her to miss several days of hemodialysis. On presentation patient was found to be more hypertensive than usual and on room air with oxygen saturations in the 90s and she subsequently went into SVT into the 150s requiring cardioversion under conscious sedation. Patient was admitted to the hospital service with acute hypoxic respiratory failure, acute on chronic hypotension, acute on chronic metabolic encephalopathy, SVT, hyperkalemia, NSTEMI type II to the ICU with consults to CCM, nephrology cardiology and psych. Hospital Course to Date: 04/20: Patient went into Afib with RVR overnight, now on amiodarone gtt per cardio. Patient remains in AFib with RVR this am, HR in the 120-140s. BP marginal on Levophed gtt, currently not a candidate for BB. Midodrine increased to 15mg TID. 2D Echo pending. On heparin gtt per protocol. No HD today per nephro due to hypotension and tachycardia. 04/21: Converted to SR this am, remains on Amiodarone and heparin. Awaiting cardio final recommendations. Still on Levophed gtt for low BP, given patient history of chronic hypotension, Wean pressor for MAP goal of 60s. Patient is pocketing foods, currently NPO, awaiting speech eval and treat. 04/22: Patient passed speech swallow eval yesterday, however, patient is refusing PO intakes including meds. Will insert DHT for nutrition and meds administration. Patient remains in SR this am, amiodaron gtt transitioned to PO per cardio. Patient remains on heparin and Levophed gtt. Patient has not received PO midrodrine for 24hrs, resume meds once DHT is inserted. Keep femoral CVC for another 24hrs, anticipating will be able to wean off pressor once patient receive midodrine. Will reassess in the morning. No HD overnight, unable to cannulate AVF, plan to attempt again today per Nephro. Possible IR/Vascular surgery consult if unsuccessful again today. 04/23: Mentation a lot better this am. DHT was inserted, meds resumed and TF initiated. Levophed gtt increased overnight due to worsen hypotension, suspected it is due to sedative agents. Seroquel decreased to 200mg BID and scheduled ativan switched to PRN. Continue midodrine TID and wean off levophed gtt for MAP goal of 60. Patient tolerated HD yesterday, continue iHD per Nephrology. CCM recommendations noted, Chest US ordered for pleural effusion. 04/24: RN instructed to wean Levophed off, goal MAP of 60. Heparin drip stopped due to decreasing hemoglobin. 04/25: ST had cleared the patient for pured diet which will be started today, hemodialysis planned for today, patient was to be anemic and will receive 1 unit PRBC with HD. We will increase midodrine to 20 mg 3 times daily if patient becomes hypotensive during dialysis. Per CCM. Decrease in seroqoul but will increase if needed 04/26: Patient agreeable to PEG, GI consulted for placement. Femoral line removed Hospitalist Physical - Constitutional Vitals: Temp Pulse Resp BP Pulse Ox 97.5 F L 109 H 26 H 96/47 100 04/26/22 08:26 04/26/22 12:03 04/26/22 12:03 04/26/22 12:00 04/26/22 12:03 General appearance: Present: no acute distress, well-nourished - EENT Eyes: Present: PERRL, EOM intact ENT: dentition normal - Neck Neck: Present: normal ROM - Respiratory Respiratory effort: normal Respiratory: bilateral: CTA, diminished - Cardiovascular Rhythm: regular Heart Sounds: Present: S1 & S2. Absent: systolic murmur, diastolic murmur - Extremities Extremities: no ischemia, pulses intact, pulses symmetrical, normal temperature, normal color Extremity abnormal: edema Peripheral Pulses: within normal limits - Abdominal General gastrointestinal: soft, non-tender, non-distended, normal bowel sounds - Integumentary Integumentary: Present: warm, dry - Psychiatric Psychiatric: cooperative - Neurologic Neurologic: CNII-XII intact, no focal deficits, moves all extremities - Allied Health Allied health notes reviewed: nursing, social work HEART Score - HEART Score Troponin: Troponin T 0.415 ng/mL (0.00-0.029) H* 04/19/22 04:53 Results - Labs CBC & Chem 7: 04/26/22 04:20 04/25/22 04:11 Labs: Laboratory Last Values WBC 7.0 K/mm3 (4.5-11.0) 04/26/22 04:20 RBC 2.81 M/mm3 (3.65-5.03) L 04/26/22 04:20 Hgb 8.0 gm/dl (10.1-14.3) L 04/26/22 04:20 Hct 25.4 % (30.3-42.9) L 04/26/22 04:20 MCV 90 fl (79-97) 04/26/22 04:20 MCH 29 pg (28-32) 04/26/22 04:20 MCHC 32 % (30-34) 04/26/22 04:20 RDW 16.2 % (13.2-15.2) H 04/26/22 04:20 Plt Count 211 K/mm3 (140-440) 04/26/22 04:20 Lymph % (Auto) 26.7 % (13.4-35.0) 04/20/22 05:30 Warren % (Auto) 15.2 % (0.0-7.3) H 04/20/22 05:30 Eos % (Auto) 3.8 % (0.0-4.3) 04/20/22 05:30 Baso % (Auto) 1.2 % (0.0-1.8) 04/20/22 05:30 Lymph # (Auto) 1.1 K/mm3 (1.2-5.4) L 04/20/22 05:30 Warren # (Auto) 0.6 K/mm3 (0.0-0.8) 04/20/22 05:30 Eos # (Auto) 0.2 K/mm3 (0.0-0.4) 04/20/22 05:30 Baso # (Auto) 0.0 K/mm3 (0.0-0.1) 04/20/22 05:30 Seg Neutrophils % 53.1 % (40.0-70.0) 04/20/22 05:30 Seg Neutrophils # 2.2 K/mm3 (1.8-7.7) 04/20/22 05:30 PT 17.9 Sec. (12.2-14.9) H 04/19/22 19:40 INR 1.28 (0.87-1.13) H 04/19/22 19:40 APTT 199.1 Sec. (24.2-36.6) H* 04/19/22 19:40 Heparin Anti-Xa Level < 0.10 U.I./ml (0.3-0.7) L 04/24/22 10:20 Sodium 134 mmol/L (137-145) L 04/25/22 04:11 Potassium 3.9 mmol/L (3.6-5.0) 04/25/22 04:11 Chloride 97.1 mmol/L (98-107) L 04/25/22 04:11 Carbon Dioxide 23 mmol/L (22-30) 04/25/22 04:11 Anion Gap 18 mmol/L 04/25/22 04:11 BUN 47 mg/dL (7-17) H 04/25/22 04:11 Creatinine 4.3 mg/dL (0.6-1.2) H 04/25/22 04:11 Estimated GFR 12 ml/min 04/25/22 04:11 BUN/Creatinine Ratio 11 % 04/25/22 04:11 Glucose 106 mg/dL (65-100) H 04/25/22 04:11 POC Glucose 137 mg/dL (70-105) H 04/25/22 06:01 Lactic Acid 1.60 mmol/L (0.7-2.0) 04/19/22 07:14 Calcium 9.3 mg/dL (8.4-10.2) 04/25/22 04:11 Phosphorus 2.50 mg/dL (2.5-4.5) 04/24/22 04:00 Magnesium 1.80 mg/dL (1.7-2.3) 04/24/22 04:00 Total Bilirubin 0.30 mg/dL (0.1-1.2) 04/20/22 05:30 AST 11 units/L (5-40) 04/20/22 05:30 ALT 7 units/L (7-56) 04/20/22 05:30 Alkaline Phosphatase 101 units/L (35-129) 04/20/22 05:30 Ammonia 25.0 umol/L (25-60) 04/19/22 04:53 Troponin T 0.415 ng/mL (0.00-0.029) H* 04/19/22 04:53 Total Protein 6.4 g/dL (6.3-8.2) 04/20/22 05:30 Albumin 2.4 g/dL (3.9-5) L 04/20/22 05:30 Albumin/Globulin Ratio 0.6 % 04/20/22 05:30 TSH 1.700 mlU/mL (0.270-4.200) 04/19/22 04:53 Free T4 0.28 ng/dL (0.76-1.46) L 04/19/22 04:53 Hepatitis A IgM Ab Non-reactive (NonReactive) 04/19/22 04:53 Hep Bs Antigen Non-reactive (Negative) 04/19/22 04:53 Hep B Core IgM Ab Non-reactive (NonReactive) 04/19/22 04:53 Hepatitis C Antibody Non-reactive (NonReactive) 04/19/22 04:53 Blood Type A POSITIVE 04/25/22 15:30 Antibody Screen Negative 04/25/22 15:30 Crossmatch See Detail 04/25/22 15:30 Cleary/IV: Voiding Method External Female Catheter Active Medications - Current Medications Current Medications: Generic Name Dose Route Start Last Admin Trade Name Freq PRN Reason Stop Dose Admin Acetaminophen 650 mg 04/22/22 20:12 04/24/22 17:55 Acetaminophen 325 Mg/10.15 Ml Oral Liqd Unit Dose PO 650 mg Q6H PRN Administration Pain MILD(1-3)/Fever >100.5/DRAKE Albumin Human 25 gm 04/21/22 13:00 04/22/22 16:31 Albumin Human 25% (25 Gm/100 Ml) Inj IV 25 gm BIANCA PRN Administration Hypotension Albuterol 2.5 mg 04/21/22 08:30 04/24/22 16:51 Albuterol 2.5 Mg/3 Ml Nebu IH 2.5 mg Q3HRT PRN Administration Shortness Of Breath Albuterol/Ipratropium 1 ampul 04/21/22 14:00 04/26/22 08:56 Ipratropium/Albuterol Sulfate 3 Ml Ampul.Neb IH 1 ampul TIDRT CONNOR Administration Clopidogrel Bisulfate 75 mg 04/23/22 10:00 04/26/22 10:57 Clopidogrel 75 Mg Tab FEEDTUBE 75 mg QDAY CONNOR Administration Epoetin Lb-epbx 20,000 unit 04/23/22 12:00 04/25/22 20:00 Epoetin Lb-Epbx 20,000 Unit/1 Ml Vial IV 20,000 unit BIANCA PRN Administration HEMODIALYSIS NORepinephrine/NS 8 MG-250 ML 8 mg in 250 mls @ 3.75 mls/hr 04/19/22 09:00 04/24/22 12:45 Norepinephrine/Ns 8 Mg-250 Ml (Double Conc) IV 0 mcg/min TITRATE CONNOR 0 mls/hr Titration Protocol 2 MCG/MIN Sodium Chloride 100 mls @ 999 mls/hr 04/22/22 09:12 Nacl 0.9% IV BIANCA PRN Hypotension Lansoprazole 30 mg 04/23/22 10:00 04/26/22 10:57 Lansoprazole 30 Mg Solutab FEEDTUBE 30 mg QDAY CONNOR Administration Lorazepam 0.5 mg 04/25/22 09:59 Lorazepam 0.5 Mg Tab FEEDTUBE QDAY PRN Anxiety Memantine 5 mg 04/25/22 10:00 04/26/22 12:22 Memantine 5 Mg Tab FEEDTUBE 5 mg BID CONNOR Administration Metoclopramide HCl 5 mg 04/19/22 09:55 Metoclopramide 10 Mg/2 Ml Inj IV Q6H PRN Nausea And Vomiting Midodrine 20 mg 04/26/22 14:00 04/26/22 13:19 Midodrine 10 Mg Tab FEEDTUBE 20 mg TID CONNOR Administration Naloxone HCl 0.1 mg 04/19/22 09:55 Naloxone 0.4 Mg/1 Ml Inj IV Q2MIN PRN Res Rate </= 8 or 02 SAT < 92% Quetiapine Fumarate 200 mg 04/25/22 22:00 04/25/22 21:50 Quetiapine 200 Mg Tab FEEDTUBE 200 mg QHS CONNOR Administration Quetiapine Fumarate 100 mg 04/26/22 10:00 04/26/22 10:57 Quetiapine 100 Mg Tab FEEDTUBE 100 mg QAM CONNOR Administration Risperidone 0.5 mg 04/25/22 11:00 04/26/22 10:57 Risperidone 1 Mg Tab FEEDTUBE 0.5 mg BID CONNOR Administration Senna 17.2 mg 04/23/22 10:00 04/26/22 10:57 Sennosides 8.6 Mg Tab FEEDTUBE 17.2 mg BID CONNOR Administration Sodium Chloride 10 ml 04/19/22 12:00 04/26/22 10:57 Sodium Chloride 0.9% 10 Ml Flush Syringe IV 10 ml BID CONNOR Administration Sodium Chloride 10 ml 04/19/22 11:19 Sodium Chloride 0.9% 10 Ml Flush Syringe IV PRN PRN LINE FLUSH Valproic Acid 750 mg 04/22/22 22:00 04/26/22 10:57 Valproic Acid 250 Mg/5 Ml Oral Liqd FEEDTUBE 750 mg BID CONNOR Administration Nutrition/Malnutrition Assess - Dietary Evaluation Nutrition/Malnutrition Findings: Nutrition Notes Start: 04/19/22 17:39 Freq: Status: Active Protocol: Document 04/24/22 14:13 MIRIAN (Rec: 04/24/22 14:54 MIRIAN [id number]) Nutrition Notes Initial or Follow up Reassessment Current Diagnosis CKD (stage V CKD),Hypertension ,Malnutrition Other Pertinent Diagnosis Metabolic Encephalopathy, ESRD +HD, Anemia, NSTEMI II, Hypotension, SIRS,... Current Diet Nepro w/CARBSTEADY @ 30 ml/hr (since D 04/22). Labs/Tests 04/24: Na 134, BUN 42, Crea 3. 9, Glu 141. Pertinent Medications 04/24: Renvela, others nutritionally unremarkable. Height 5 ft 2 in Weight 54.43 kg Gordon Body Weight (kg) 50.00 BMI 21.9 Intake Prior to Admission Good Weight change and time frame Pt denies having loss body weight [employer]. No body weight change reported in 5 days. Weight Status Appropriate Subjective/Other Information RD consult for TF tolerance/ continuation assessment. TF continues as prescribed, No further information available at the time. STORAGE CONSULTANT notes on 04/21/22 13:28: Swallowing function has been assessed. Patient holds the bolus in the oral cavity for an extended period of time prior to initiating a swallow. This is attributed to her diminished mental acuity. Recommend a pureed diet with thins. However, intake must be monitored closely to ensure she eats a sufficient amount to maintain adequate nutritional support. Will continue to follow to determine if the diet may be upgraded pending her mental status. - END OF NOTE. Pt is on Room Air, O2 saturation @ 95%, according to Physical Assessment History notes. Percent of energy/protein needs met: Prescribed Nepro w/CARBSTEADY @ 30 ml/hr provides for energy /protein needs (1,269 Kcal/58 g) during LOS, 102% Kcal; 89% AA. GI Symptoms None Food Allergy Yes Skin Integrity/Comment Healing Sacral wound, intact. Current % PO Other Minimum of two criteria No Fluid Accumulation N/A Reduced Custom Bow Maker Strength N/A (non-severe) Protein-Calorie Malnutrition N\A #1 Nutrition Diagnosis Inadequate oral intake Comments: STORAGE CONSULTANT notes on 04/21/22 13:28: Swallowing function has been assessed. Patient holds the bolus in the oral cavity for an extended period of time prior to initiating a swallow. This is attributed to her diminished mental acuity. Recommend a pureed diet with thins. However, intake must be monitored closely to ensure she eats a sufficient amount to maintain adequate nutritional support. Will continue to follow to determine if the diet may be upgraded pending her mental status. - END OF NOTE. Diagnosis Progress(for reassessment Continues documentation) Is patient on ventilator? No Is Patient Ambulatory and/or Out of Bed No REE-([facility]-confined to bed) [phone] Calculation Used for Recommendations [facility] Additional Notes Protein: >1.2 g/Kg ABW; >65 g/ day. Fluids: 1-1.5 L/day, or as per MD. Nutrition Intervention Nutrition Support: Continue Nepro w/CARBSTEADY @ 30 ml/hr. Flush: 130 ml water Q 4 hr, or as per MD. Kcal 1,269 Protein (gm) 58 Carbohydrates (gm) 116 Fat (gm) 58 Fluid (mL) 523 Fiber (gm) 9 % RDI: 102% Kcal; 89% AA. Goal #1 Provide at least 75% of energy /protein needs through Enteral Feeding during LOS. Follow-Up By: 05/01/22 Additional Comments Continue monitoring TF tolerance, vasopressors, and BM. <AMAURY KIM - Last Filed: 05/08/22 11:40> History Interval history: I saw and evaluated the patient. I agree with the findings and the plan of care as documented in the Nurse Practitioner's~note, with the following corrections and additions. Hospitalist Physical - Constitutional Vitals: Temp Pulse Resp BP Pulse Ox 97.8 F 104 H 12 114/44 99 05/08/22 07:16 05/08/22 11:15 05/08/22 11:15 05/08/22 11:15 05/08/22 11:15 HEART Score - HEART Score Troponin: Troponin T 0.415 ng/mL (0.00-0.029) H* 04/19/22 04:53 Results - Labs CBC & Chem 7: 05/08/22 04:06 05/08/22 04:06 Labs: Laboratory Last Values WBC 6.6 K/mm3 (4.5-11.0) 05/08/22 04:06 RBC 2.87 M/mm3 (3.65-5.03) L 05/08/22 04:06 Hgb 8.2 gm/dl (10.1-14.3) L 05/08/22 04:06 Hct 25.8 % (30.3-42.9) L 05/08/22 04:06 MCV 90 fl (79-97) 05/08/22 04:06 MCH 29 pg (28-32) 05/08/22 04:06 MCHC 32 % (30-34) 05/08/22 04:06 RDW 16.2 % (13.2-15.2) H 05/08/22 04:06 Plt Count 118 K/mm3 (140-440) L 05/08/22 04:06 Lymph % (Auto) 26.7 % (13.4-35.0) 04/20/22 05:30 Warren % (Auto) 15.2 % (0.0-7.3) H 04/20/22 05:30 Eos % (Auto) 3.8 % (0.0-4.3) 04/20/22 05:30 Baso % (Auto) 1.2 % (0.0-1.8) 04/20/22 05:30 Lymph # (Auto) 1.1 K/mm3 (1.2-5.4) L 04/20/22 05:30 Warren # (Auto) 0.6 K/mm3 (0.0-0.8) 04/20/22 05:30 Eos # (Auto) 0.2 K/mm3 (0.0-0.4) 04/20/22 05:30 Baso # (Auto) 0.0 K/mm3 (0.0-0.1) 04/20/22 05:30 Add Manual Diff Complete 05/05/22 04:20 Total Counted 100 05/05/22 04:20 Seg Neutrophils % 53.1 % (40.0-70.0) 04/20/22 05:30 Seg Neuts % (Manual) 86.0 % (40.0-70.0) H 05/05/22 04:20 Band Neutrophils % 3.0 % 05/05/22 04:20 Lymphocytes % (Manual) 4.0 % (13.4-35.0) L 05/05/22 04:20 Reactive Lymphs % (Man) 0 % 05/05/22 04:20 Monocytes % (Manual) 6.0 % (0.0-7.3) 05/05/22 04:20 Eosinophils % (Manual) 1.0 % (0.0-4.3) 05/05/22 04:20 Basophils % (Manual) 0 % (0.0-1.8) 05/05/22 04:20 Metamyelocytes % 0 % 05/05/22 04:20 Myelocytes % 0 % 05/05/22 04:20 Promyelocytes % 0 % 05/05/22 04:20 Blast Cells % 0 % 05/05/22 04:20 Nucleated RBC % 1.0 % (0.0-0.9) H 05/05/22 04:20 Seg Neutrophils # 2.2 K/mm3 (1.8-7.7) 04/20/22 05:30 Seg Neutrophils # Man 11.0 K/mm3 (1.8-7.7) H 05/05/22 04:20 Band Neutrophils # 0.4 K/mm3 05/05/22 04:20 Lymphocytes # (Manual) 0.5 K/mm3 (1.2-5.4) L 05/05/22 04:20 Abs React Lymphs (Man) 0.0 K/mm3 05/05/22 04:20 Monocytes # (Manual) 0.8 K/mm3 (0.0-0.8) 05/05/22 04:20 Eosinophils # (Manual) 0.1 K/mm3 (0.0-0.4) 05/05/22 04:20 Basophils # (Manual) 0.0 K/mm3 (0.0-0.1) 05/05/22 04:20 Metamyelocytes # 0.0 K/mm3 05/05/22 04:20 Myelocytes # 0.0 K/mm3 05/05/22 04:20 Promyelocytes # 0.0 K/mm3 05/05/22 04:20 Blast Cells # 0.0 K/mm3 05/05/22 04:20 WBC Morphology Not Reportable 05/05/22 04:20 Hypersegmented Neuts Not Reportable 05/05/22 04:20 Hyposegmented Neuts Not Reportable 05/05/22 04:20 Hypogranular Neuts Not Reportable 05/05/22 04:20 Smudge Cells Not Reportable 05/05/22 04:20 Toxic Granulation Not Reportable 05/05/22 04:20 Toxic Vacuolation Not Reportable 05/05/22 04:20 Dohle Bodies Not Reportable 05/05/22 04:20 Pelger-Huet Anomaly Not Reportable 05/05/22 04:20 Ubaldo Rods Not Reportable 05/05/22 04:20 Platelet Estimate Consistent w auto 05/05/22 04:20 Clumped Platelets Not Reportable 05/05/22 04:20 Plt Clumps, EDTA Not Reportable 05/05/22 04:20 Large Platelets Not Reportable 05/05/22 04:20 Giant Platelets Not Reportable 05/05/22 04:20 Platelet Satelliting Not Reportable 05/05/22 04:20 Plt Morphology Comment Not Reportable 05/05/22 04:20 RBC Morphology Not Reportable 05/05/22 04:20 Dimorphic RBCs Not Reportable 05/05/22 04:20 Polychromasia Not Reportable 05/05/22 04:20 Hypochromasia 2+ 05/05/22 04:20 Poikilocytosis Not Reportable 05/05/22 04:20 Anisocytosis 1+ 05/05/22 04:20 Microcytosis Not Reportable 05/05/22 04:20 Macrocytosis Not Reportable 05/05/22 04:20 Spherocytes Not Reportable 05/05/22 04:20 Pappenheimer Bodies Not Reportable 05/05/22 04:20 Sickle Cells Not Reportable 05/05/22 04:20 Target Cells Not Reportable 05/05/22 04:20 Tear Drop Cells Not Reportable 05/05/22 04:20 Ovalocytes Not Reportable 05/05/22 04:20 Helmet Cells Not Reportable 05/05/22 04:20 Rangel-[place] Bodies Not Reportable 05/05/22 04:20 [place] Rings Not Reportable 05/05/22 04:20 [place] Cells Not Reportable 05/05/22 04:20 Bite Cells Not Reportable 05/05/22 04:20 Crenated Cell Not Reportable 05/05/22 04:20 Elliptocytes Not Reportable 05/05/22 04:20 Acanthocytes (Spur) Not Reportable 05/05/22 04:20 Rouleaux Not Reportable 05/05/22 04:20 Hemoglobin C Crystals Not Reportable 05/05/22 04:20 Schistocytes Not Reportable 05/05/22 04:20 Malaria parasites Not Reportable 05/05/22 04:20 Torrey Bodies Not Reportable 05/05/22 04:20 Hem Pathologist Commnt No 05/05/22 04:20 PT 17.6 Sec. (12.2-14.9) H 05/04/22 04:26 INR 1.29 (0.87-1.13) H 05/04/22 04:26 APTT 39.4 Sec. (24.2-36.6) H 05/03/22 04:24 Heparin Anti-Xa Level < 0.10 U.I./ml (0.3-0.7) L 04/24/22 10:20 ABG pH 7.482 pH Units (7.350-7.450) H 05/08/22 04:40 ABG pCO2 35.2 mm Hg 05/08/22 04:40 ABG pO2 103.9 mm Hg (80.0-90.0) H 05/08/22 04:40 ABG HCO3 25.8 mmol/L (20.0-26.0) 05/08/22 04:40 ABG O2 Saturation 98.0 % (95.0-99.0) 05/08/22 04:40 ABG O2 Content 11.1 (0.0-44) 05/08/22 04:40 ABG Base Excess 2.3 mmol/L (-2.0-3.0) 05/08/22 04:40 ABG Hemoglobin 8.1 gm/dl (12.0-16.0) L 05/08/22 04:40 ABG Carboxyhemoglobin 1.8 % (0.0-5.0) 05/08/22 04:40 ABG Methemoglobin 0.2 % (0.0-1.5) 05/08/22 04:40 Oxyhemoglobin 96.0 % (95.0-99.0) 05/08/22 04:40 FiO2 30 % 05/08/22 04:40 Sodium 132 mmol/L (137-145) L 05/08/22 04:06 Potassium 3.3 mmol/L (3.6-5.0) L 05/08/22 04:06 Chloride 93.2 mmol/L (98-107) L 05/08/22 04:06 Carbon Dioxide 28 mmol/L (22-30) 05/08/22 04:06 Anion Gap 14 mmol/L 05/08/22 04:06 BUN 36 mg/dL (7-17) H 05/08/22 04:06 Creatinine 2.9 mg/dL (0.6-1.2) H 05/08/22 04:06 Estimated GFR 20 ml/min 05/08/22 04:06 BUN/Creatinine Ratio 12 % 05/08/22 04:06 Glucose 145 mg/dL (65-100) H 05/08/22 04:06 POC Glucose 123 mg/dL (70-105) H 05/07/22 23:23 Lactic Acid 1.60 mmol/L (0.7-2.0) 04/19/22 07:14 Calcium 8.9 mg/dL (8.4-10.2) 05/08/22 04:06 Phosphorus 2.00 mg/dL (2.5-4.5) L D 05/08/22 04:06 Magnesium 1.80 mg/dL (1.7-2.3) 05/08/22 04:06 Total Bilirubin 0.30 mg/dL (0.1-1.2) 04/20/22 05:30 AST 11 units/L (5-40) 04/20/22 05:30 ALT 7 units/L (7-56) 04/20/22 05:30 Alkaline Phosphatase 101 units/L (35-129) 04/20/22 05:30 Ammonia 25.0 umol/L (25-60) 04/19/22 04:53 Troponin T 0.415 ng/mL (0.00-0.029) H* 04/19/22 04:53 Total Protein 6.4 g/dL (6.3-8.2) 04/20/22 05:30 Albumin 2.4 g/dL (3.9-5) L 04/20/22 05:30 Albumin/Globulin Ratio 0.6 % 04/20/22 05:30 Procalcitonin 42.42 ng/mL (<0.15) 05/05/22 04:20 TSH 1.700 mlU/mL (0.270-4.200) 04/19/22 04:53 Free T4 0.28 ng/dL (0.76-1.46) L 04/19/22 04:53 Total Cortisol 24.4 mcg/dL () 04/27/22 04:45 Random Vancomycin 9.6 ug/mL (0-40.0) 05/07/22 04:15 Coronavirus (PCR) Negative (Negative) 05/03/22 11:30 Hepatitis A IgM Ab Non-reactive (NonReactive) 04/19/22 04:53 Hep Bs Antigen Non-reactive (Negative) 04/19/22 04:53 Hep B Core IgM Ab Non-reactive (NonReactive) 04/19/22 04:53 Hepatitis C Antibody Non-reactive (NonReactive) 04/19/22 04:53 Blood Type A POSITIVE 05/04/22 05:30 Antibody Screen Negative 05/04/22 05:30 Crossmatch See Detail 05/04/22 05:30 Microbiology: Microbiology 05/04/22 16:30 Peripheral/Venous Blood Culture - Preliminary NO GROWTH AFTER 72 HOURS 05/03/22 10:30 Bronchial Washings - Right Lower Lobe Respiratory Culture - Final Methicillin Resist S. Aureus 05/04/22 16:30 Peripheral/Venous Blood Culture - Preliminary Coag Negative Staphylococcus Cleary/IV: Voiding Method Incontinent Active Medications - Current Medications Current Medications: Generic Name Dose Route Start Last Admin Trade Name Freq PRN Reason Stop Dose Admin Acetaminophen 650 mg 04/22/22 20:12 05/03/22 23:41 Acetaminophen 325 Mg/10.15 Ml Oral Liqd Unit Dose PO 650 mg Q6H PRN Administration Pain MILD(1-3)/Fever >100.5/DRAKE Acetylcysteine 200 mg 05/05/22 14:00 05/08/22 09:15 Acetylcysteine 20% 200 Mg/1 Ml *For Inhalation Use* INHALATION 05/10/22 13:59 200 mg TID CONNOR Administration Albumin Human 25 gm 04/21/22 13:00 04/22/22 16:31 Albumin Human 25% (25 Gm/100 Ml) Inj IV 25 gm BIANCA PRN Administration Hypotension Albuterol 2.5 mg 04/21/22 08:30 04/24/22 16:51 Albuterol 2.5 Mg/3 Ml Nebu IH 2.5 mg Q3HRT PRN Administration Shortness Of Breath Albuterol/Ipratropium 1 ampul 04/21/22 14:00 05/08/22 09:15 Ipratropium/Albuterol Sulfate 3 Ml Ampul.Neb IH 1 ampul TIDRT CONNOR Administration Docusate Sodium 100 mg 05/01/22 22:00 05/08/22 11:27 Docusate Sodium 100 Mg/10 Ml Oral Liqd FEEDTUBE Not Given BID [facility] Epoetin Lb-epbx 20,000 unit 04/23/22 12:00 05/06/22 19:23 Epoetin Lb-Epbx 20,000 Unit/1 Ml Vial IV 20,000 unit BIANCA PRN Administration HEMODIALYSIS Fentanyl 50 mcg 05/03/22 10:29 05/05/22 12:23 Fentanyl 100 Mcg/2 Ml Inj IV 25 mcg Q10MIN PRN Administration ANALGESIA Sodium Chloride 100 mls @ 999 mls/hr 04/22/22 09:12 Nacl 0.9% IV BIANCA PRN Hypotension Fentanyl Citrate 2,000 mcg in 100 mls @ 2.722 mls/hr 05/03/22 11:00 Fentanyl Drip Premix IV TITR CONNOR Protocol 1 MCG/KG/HR NORepinephrine/NS 8 MG-250 ML 8 mg in 250 mls @ 3.75 mls/hr 05/03/22 13:15 05/06/22 10:06 Norepinephrine/Ns 8 Mg-250 Ml (Double Conc) IV 0 mcg/min TITRATE CONNOR 0 mls/hr Titration Protocol 2 MCG/MIN Vasopressin 20 unit/ Sodium 101 mls @ 9.09 mls/hr 05/04/22 00:30 05/06/22 11:21 Chloride IV 0 units/min TITR CONNOR 0 mls/hr Infusion 0.03 UNITS/MIN Cefepime HCl 1 gm in 100 mls @ 200 mls/hr 05/04/22 18:00 05/07/22 17:11 Cefepime/Ns 1 Gm/100 Ml IV 200 mls/hr QPM CONNOR Administration Protocol Lansoprazole 30 mg 04/23/22 10:00 05/08/22 10:59 Lansoprazole 30 Mg Solutab FEEDTUBE 30 mg QDAY [facility] Administration Lorazepam 0.5 mg 04/25/22 09:59 Lorazepam 0.5 Mg Tab FEEDTUBE QDAY PRN Anxiety Memantine 5 mg 04/25/22 10:00 05/08/22 10:57 Memantine 5 Mg Tab FEEDTUBE 5 mg BID [facility] Administration Metoclopramide HCl 5 mg 04/19/22 09:55 Metoclopramide 10 Mg/2 Ml Inj IV Q6H PRN Nausea And Vomiting Midodrine 20 mg 04/26/22 14:00 05/08/22 10:59 Midodrine 10 Mg Tab FEEDTUBE 20 mg TID [facility] Administration Naloxone HCl 0.1 mg 04/19/22 09:55 Naloxone 0.4 Mg/1 Ml Inj IV Q2MIN PRN Res Rate </= 8 or 02 SAT < 92% Polyethylene Glycol 17 gm 05/03/22 10:00 05/08/22 11:27 Polyethylene Glycol 3350 17 Gm Powder FEEDTUBE Not Given QDAY CONNOR Risperidone 0.5 mg 04/25/22 11:00 05/08/22 11:00 Risperidone 1 Mg Tab FEEDTUBE 0.5 mg BID CON[facility] Administration Scopolamine 1 each 05/02/22 10:00 05/08/22 11:01 Scopolamine Transdermal Patch 72 Hr TD 1 each Q3D [facility] Administration Senna 17.2 mg 04/23/22 10:00 05/08/22 11:27 Sennosides 8.6 Mg Tab FEEDTUBE Not Given BID CONNOR Sodium Chloride 10 ml 04/19/22 12:00 05/08/22 11:00 Sodium Chloride 0.9% 10 Ml Flush Syringe IV 10 ml BID CONNOR Administration Sodium Chloride 10 ml 04/19/22 11:19 Sodium Chloride 0.9% 10 Ml Flush Syringe IV PRN PRN LINE FLUSH Sodium Phosphate 250 mg 05/08/22 10:00 05/08/22 10:57 K-Phos Neutral 250 Mg Tab FEEDTUBE 05/09/22 09:59 250 mg QID [facility] Administration Valproic Acid 750 mg 04/22/22 22:00 05/08/22 10:59 Valproic Acid 250 Mg/5 Ml Oral Liqd FEEDTUBE 750 mg BID CONNOR Administration Nutrition/Malnutrition Assess - Dietary Evaluation Nutrition/Malnutrition Findings: Nutrition Notes Start: 04/19/22 17:39 Freq: Status: Active Protocol: Document 05/05/22 14:44 SHILA (Rec: 05/05/22 14:55 NHALL [id number]) Nutrition Notes Initial or Follow up Reassessment Current Diagnosis CKD (stage V CKD),Sepsis, Respiratory Failure Other Pertinent Diagnosis Neurogenic dysphagia, metabolic encephalopathy, vascular dementia Current Diet No diet order in chart Labs/Tests Na 130 K 3.3 BUN 24 Cr 2.3 BG 163 Phos 1.5 Pertinent Medications Colace, Senokot, Miralax, Levophed gtt, Vasopressin gtt Height 5 ft 2 in Weight 54.43 kg Gordon Body Weight (kg) 50.00 BMI 21.9 Weight Status Appropriate Subjective/Other Information PEG placed yesterday. Pt remains on vent and HD support . Observed Nepro infusing at 30ml/hr. No BM documented today. Bronchoscopy performed today. Percent of energy/protein needs met: 104% energy 90% pro Burn Absent Trauma Absent #1 Nutrition Diagnosis Inadequate oral intake, Swallowing difficulty Diagnosis Progress(for reassessment Continues documentation) Is patient on ventilator? Yes Is Patient Ambulatory and/or Out of Bed No REE-([facility]-confined to bed) [phone] Calculation Used for Recommendations [facility] Additional Notes Pro needs >1.2g/kg: >65g/day Fluid needs 1-1.5L/day Nutrition Intervention Nutrition Support: Continue Nepro at 30ml/hr with 130ml water flush q4h. Kcal 1,296 Protein (gm) 58 Carbohydrates (gm) 116 Fat (gm) 69 Fluid (mL) 523 Fiber (gm) 9 Goal #1 TF tolerance Goal #2 TF to meet at least 75% energy and pro needs Follow-Up By: 05/12/22 Additional Comments F/U: stable TF, vent status, wt, BM
--- NOTE | 2022-04-26 13:42 | Progress Note ---
Assessment and Plan Acute hypoxemic respiratory failure, Acute on Chronic Hypotension Acute on Chronic Metabolic Encephalopathy Possible Shock Syndrome SVT Elevated troponin, Bipolar disorder, Schizophrenia, Hyperkalemia ESRD on hemodialysis, Anemia of chronic disease, Type 2 NSTEMI GERD Subclinical Hypothyroidism Moderate protein caloric malnutrition - continue enteral nutrition at goal rate as tolerated - GI consult for PEG - increased Midodrine to 20 mg po q8h - femoral CVL discontinued - prn Levophed for target MAP >/= 60 mmHg and follow clinically - Albumin 25 gms of 25% solution prn MAP < 60 mmHg - continue HD/UF per nephrology prescription for toxin and volume clearance - continue care as below otherwise; - continue accuchecks with glycemic control per SSI (While critically ill target blood glucose of 140-180 mg/dL; avoid hypoglycemia) - continue supplemental oxygen for target O2 sat's > 90% acutely - aspiration precautions - prn bronchodilators with pulmonary hygiene per RT - avoid nephrotoxins, renally dose all medications - continue to avoid benzodiazepine's, reduce the possibility of delirium - AB's per ID rec's - prn analgesia per pain score - Maintenance of sleep-wake cycle, avoid delirium - G.I. & VTE prophylaxis - PT/OT/ROM exercises - continue mobility protocols for pressure ulcer prophylaxis - Monitor hemodynamics closely - continue other care per attending / other consultants - discharge planning ongoing concurrently .... Re-evaluate in am & prn CONDITION: CRITICAL PROGNOSIS: GUARDED CODE STATUS: FULL CODE The high probability of a clinically significant, sudden or life-threatening deterioration of the [respiratory, cardiovascular, renal & neurologic] system(s) required my full and direct attention, intervention and personal management. The aggregate critical care time was [33] minutes without overlap. Time includes spent on; [x] Data Review and interpretation [x] Patient assessment and monitoring of vital signs [x] Documentation [x] Medication orders and management Subjective Date of service: 04/26/22 Principal diagnosis: AHRF; Shock; AMS; SVT; NSTEMI; ESRD; Protein calorie malnutrition Interval history: Patient is seen today for: Acute hypoxemic respiratory failure; Shock / Hypotension; AMS; SVT; NSTEMI; Schizophrenia; ESRD on Dialysis; Moderate protein caloric malnutrition Seen and examined at bedside; 24hour events reviewed; nursing and respiratory care staff consulted; no adverse overnight events reported to me; resting in bed; remains off Levophed but MAP's in 50's intermittently; failed [employer] re- evaluation and will likely need a PEG tube; denies chest pains or increased SOB; no N/V/F/C Objective Vital Signs - 12hr 04/26/22 04/26/22 04/26/22 01:45 02:00 02:15 Temperature Pulse Rate 113 H 114 H 110 H Pulse Rate [ Anterior Bilateral Throughout] Pulse Rate [ From Monitor] Respiratory 31 H 27 H 29 H Rate Respiratory Rate [Anterior Bilateral Throughout] Blood Pressure 121/67 118/66 107/60 O2 Sat by Pulse 99 98 99 Oximetry 04/26/22 04/26/22 04/26/22 02:30 02:45 03:00 Temperature Pulse Rate 113 H 114 H 114 H Pulse Rate [ Anterior Bilateral Throughout] Pulse Rate [ From Monitor] Respiratory 27 H 31 H 32 H Rate Respiratory Rate [Anterior Bilateral Throughout] Blood Pressure 119/70 110/66 115/73 O2 Sat by Pulse 98 97 97 Oximetry 04/26/22 04/26/22 04/26/22 03:15 03:31 03:45 Temperature Pulse Rate 104 H 105 H 100 H Pulse Rate [ Anterior Bilateral Throughout] Pulse Rate [ From Monitor] Respiratory 24 25 H 26 H Rate Respiratory Rate [Anterior Bilateral Throughout] Blood Pressure 96/53 109/55 96/57 O2 Sat by Pulse 96 99 99 Oximetry 04/26/22 04/26/22 04/26/22 04:00 04:15 04:30 Temperature 99.2 F Pulse Rate 102 H 110 H 106 H Pulse Rate [ Anterior Bilateral Throughout] Pulse Rate [ 105 H From Monitor] Respiratory 25 H 20 26 H Rate Respiratory Rate [Anterior Bilateral Throughout] Blood Pressure 104/56 119/67 95/66 O2 Sat by Pulse 99 99 99 Oximetry 04/26/22 04/26/22 04/26/22 04:45 05:00 05:15 Temperature Pulse Rate 98 H 98 H 99 H Pulse Rate [ Anterior Bilateral Throughout] Pulse Rate [ From Monitor] Respiratory 22 24 25 H Rate Respiratory Rate [Anterior Bilateral Throughout] Blood Pressure 104/59 102/54 94/52 O2 Sat by Pulse 100 98 99 Oximetry 04/26/22 04/26/22 04/26/22 05:30 05:45 06:00 Temperature Pulse Rate 98 H 107 H 99 H Pulse Rate [ Anterior Bilateral Throughout] Pulse Rate [ From Monitor] Respiratory 25 H 22 22 Rate Respiratory Rate [Anterior Bilateral Throughout] Blood Pressure 102/50 109/61 99/47 O2 Sat by Pulse 98 99 100 Oximetry 04/26/22 04/26/22 04/26/22 06:15 06:30 06:45 Temperature Pulse Rate 99 H 97 H 99 H Pulse Rate [ Anterior Bilateral Throughout] Pulse Rate [ From Monitor] Respiratory 20 25 H 22 Rate Respiratory Rate [Anterior Bilateral Throughout] Blood Pressure 96/45 103/52 92/45 O2 Sat by Pulse 100 94 94 Oximetry 04/26/22 04/26/22 04/26/22 07:00 07:15 07:30 Temperature Pulse Rate 101 H 100 H 111 H Pulse Rate [ Anterior Bilateral Throughout] Pulse Rate [ From Monitor] Respiratory 29 H 23 29 H Rate Respiratory Rate [Anterior Bilateral Throughout] Blood Pressure 91/51 95/49 106/52 O2 Sat by Pulse 95 94 92 Oximetry 04/26/22 04/26/22 04/26/22 07:45 08:00 08:15 Temperature Pulse Rate 100 H 100 H 109 H Pulse Rate [ Anterior Bilateral Throughout] Pulse Rate [ From Monitor] Respiratory 24 23 28 H Rate Respiratory Rate [Anterior Bilateral Throughout] Blood Pressure 94/44 94/54 100/49 O2 Sat by Pulse 95 95 94 Oximetry 04/26/22 04/26/22 04/26/22 08:20 08:26 08:31 Temperature 97.5 F L Pulse Rate 114 H Pulse Rate [ Anterior Bilateral Throughout] Pulse Rate [ 109 H From Monitor] Respiratory 28 H 20 Rate Respiratory Rate [Anterior Bilateral Throughout] Blood Pressure 79/61 O2 Sat by Pulse 100 92 Oximetry 04/26/22 04/26/22 04/26/22 08:45 08:56 08:57 Temperature Pulse Rate 109 H Pulse Rate [ 104 H Anterior Bilateral Throughout] Pulse Rate [ From Monitor] Respiratory 30 H Rate Respiratory 20 Rate [Anterior Bilateral Throughout] Blood Pressure 79/61 O2 Sat by Pulse 94 94 Oximetry 04/26/22 04/26/22 04/26/22 09:01 09:15 09:31 Temperature Pulse Rate 101 H 100 H 102 H Pulse Rate [ Anterior Bilateral Throughout] Pulse Rate [ From Monitor] Respiratory 23 23 22 Rate Respiratory Rate [Anterior Bilateral Throughout] Blood Pressure 101/38 101/38 110/35 O2 Sat by Pulse 100 100 100 Oximetry 04/26/22 04/26/22 04/26/22 09:45 10:00 10:01 Temperature Pulse Rate 118 H 109 H 112 H Pulse Rate [ Anterior Bilateral Throughout] Pulse Rate [ From Monitor] Respiratory 27 H 32 H Rate Respiratory Rate [Anterior Bilateral Throughout] Blood Pressure 101/38 101/48 O2 Sat by Pulse 93 92 Oximetry 04/26/22 04/26/22 04/26/22 10:15 10:30 10:45 Temperature Pulse Rate 107 H 110 H 109 H Pulse Rate [ Anterior Bilateral Throughout] Pulse Rate [ From Monitor] Respiratory 27 H 24 20 Rate Respiratory Rate [Anterior Bilateral Throughout] Blood Pressure 101/48 96/64 96/64 O2 Sat by Pulse 94 93 97 Oximetry 04/26/22 04/26/22 04/26/22 11:00 11:15 11:31 Temperature Pulse Rate 100 H 108 H 104 H Pulse Rate [ Anterior Bilateral Throughout] Pulse Rate [ From Monitor] Respiratory 22 28 H 27 H Rate Respiratory Rate [Anterior Bilateral Throughout] Blood Pressure 93/46 93/46 98/48 O2 Sat by Pulse 100 99 99 Oximetry 04/26/22 04/26/22 04/26/22 11:45 12:00 12:03 Temperature Pulse Rate 103 H 109 H Pulse Rate [ Anterior Bilateral Throughout] Pulse Rate [ 109 H From Monitor] Respiratory 21 25 H 26 H Rate Respiratory Rate [Anterior Bilateral Throughout] Blood Pressure 98/48 96/47 O2 Sat by Pulse 100 98 100 Oximetry Constitutional: no acute distress Eyes: non-icteric ENT: oropharynx moist Neck: supple, no lymphadenopathy, no JVD Effort: normal Ascultation: Bilateral: diminished breath sounds, rhonchi Percussion: Bilateral: not dull Cardiovascular: regular rate and rhythm Gastrointestinal: normoactive bowel sounds, soft, non-tender, non-distended Integumentary: normal Extremities: no cyanosis, no edema, pulses normal, no ischemia or petechiae Neurologic: non-focal exam (grossly), pupils equal and round, CN II-XII normal, motor strength normal and Psychiatric: mood appropriate, affect normal CBC and BMP: 04/26/22 04:20 04/25/22 04:11 ABG, PT/INR, D-dimer: PT/INR, D-dimer PT 17.9 Sec. (12.2-14.9) H 04/19/22 19:40 INR 1.28 (0.87-1.13) H 04/19/22 19:40 Abnormal lab findings: Abnormal Labs 04/19/22 04/19/22 04/19/22 04:53 04:53 04:53 WBC RBC 3.06 L Hgb 8.6 L Hct 28.0 L RDW 16.3 H [place] % (Auto) 11.3 H Lymph # (Auto) PT INR APTT Heparin Anti-Xa Level Sodium Potassium 5.1 H Chloride Carbon Dioxide 21 L BUN 94 H Creatinine 6.3 H Glucose POC Glucose Phosphorus Magnesium Troponin T 0.415 H* Albumin 2.7 L Free T4 0.28 L Crossmatch 04/19/22 04/19/22 04/20/22 19:40 19:40 05:30 WBC 4.1 L RBC 2.97 L Hgb 8.5 L 8.2 L Hct 27.8 L 27.1 L RDW 17.0 H [place] % (Auto) 15.2 H Lymph # (Auto) 1.1 L PT 17.9 H INR 1.28 H APTT 199.1 H* Heparin Anti-Xa Level Sodium Potassium Chloride Carbon Dioxide BUN Creatinine Glucose POC Glucose Phosphorus Magnesium Troponin T Albumin Free T4 Crossmatch 04/20/22 04/20/22 04/21/22 05:30 18:23 00:29 WBC RBC Hgb Hct RDW [place] % (Auto) Lymph # (Auto) PT INR APTT Heparin Anti-Xa Level 0.17 L Sodium Potassium Chloride Carbon Dioxide 21 L BUN 95 H Creatinine 6.6 H Glucose 139 H POC Glucose Phosphorus Magnesium 2.60 H Troponin T Albumin 2.4 L Free T4 Crossmatch 04/21/22 04/21/22 04/22/22 04:00 04:00 03:45 WBC RBC 2.74 L Hgb 7.7 L Hct 24.7 L RDW 16.6 H [place] % (Auto) Lymph # (Auto) PT INR APTT Heparin Anti-Xa Level < 0.10 L Sodium 133 L Potassium Chloride Carbon Dioxide 20 L BUN 89 H Creatinine 6.6 H Glucose 131 H POC Glucose Phosphorus 6.40 H Magnesium 2.50 H Troponin T Albumin Free T4 Crossmatch 04/22/22 04/22/22 04/22/22 03:45 12:13 14:30 WBC RBC Hgb Hct RDW [place] % (Auto) Lymph # (Auto) PT INR APTT Heparin Anti-Xa Level 0.11 L 0.11 L Sodium 136 L Potassium Chloride Carbon Dioxide 18 L BUN 90 H Creatinine 6.3 H Glucose 121 H POC Glucose Phosphorus 6.50 H Magnesium Troponin T Albumin Free T4 Crossmatch 04/22/22 04/23/22 04/23/22 23:08 02:17 04:10 WBC RBC Hgb 7.3 L Hct 23.3 L RDW [place] % (Auto) Lymph # (Auto) PT INR APTT Heparin Anti-Xa Level 0.14 L Sodium Potassium Chloride Carbon Dioxide BUN Creatinine Glucose POC Glucose 153 H Phosphorus Magnesium Troponin T Albumin Free T4 Crossmatch 04/23/22 04/23/22 04/23/22 04:10 06:09 23:22 WBC RBC Hgb Hct RDW [place] % (Auto) Lymph # (Auto) PT INR APTT Heparin Anti-Xa Level Sodium Potassium Chloride Carbon Dioxide BUN 36 H Creatinine 3.4 H Glucose 131 H POC Glucose 141 H 114 H Phosphorus Magnesium Troponin T Albumin Free T4 Crossmatch 04/24/22 04/24/22 04/24/22 02:10 04:00 04:00 WBC RBC 2.48 L Hgb 7.1 L Hct 22.6 L RDW 16.9 H [place] % (Auto) Lymph # (Auto) PT INR APTT Heparin Anti-Xa Level 0.12 L Sodium 134 L Potassium Chloride Carbon Dioxide BUN 42 H Creatinine 3.9 H Glucose 141 H POC Glucose Phosphorus Magnesium Troponin T Albumin Free T4 Crossmatch 04/24/22 04/24/22 04/24/22 05:03 10:20 11:24 WBC RBC Hgb Hct RDW [place] % (Auto) Lymph # (Auto) PT INR APTT Heparin Anti-Xa Level < 0.10 L Sodium Potassium Chloride Carbon Dioxide BUN Creatinine Glucose POC Glucose 142 H 144 H Phosphorus Magnesium Troponin T Albumin Free T4 Crossmatch 04/25/22 04/25/22 04/25/22 00:15 04:11 04:11 WBC 4.4 L RBC 2.38 L Hgb 6.7 L Hct 21.7 L RDW 17.2 H [place] % (Auto) Lymph # (Auto) PT INR APTT Heparin Anti-Xa Level Sodium 134 L Potassium Chloride 97.1 L Carbon Dioxide BUN 47 H Creatinine 4.3 H Glucose 106 H POC Glucose 136 H Phosphorus Magnesium Troponin T Albumin Free T4 Crossmatch 04/25/22 04/25/22 04/25/22 06:01 15:30 22:44 WBC RBC Hgb 8.8 L Hct 28.1 L D RDW [place] % (Auto) Lymph # (Auto) PT INR APTT Heparin Anti-Xa Level Sodium Potassium Chloride Carbon Dioxide BUN Creatinine Glucose POC Glucose 137 H Phosphorus Magnesium Troponin T Albumin Free T4 Crossmatch See Detail 04/26/22 04:20 WBC RBC 2.81 L Hgb 8.0 L Hct 25.4 L RDW 16.2 H [place] % (Auto) Lymph # (Auto) PT INR APTT Heparin Anti-Xa Level Sodium Potassium Chloride Carbon Dioxide BUN Creatinine Glucose POC Glucose Phosphorus Magnesium Troponin T Albumin Free T4 Crossmatch Allied health notes reviewed: nursing
--- NOTE | 2022-04-26 15:12 | Progress Note ---
Assessment and Plan Patient is a 66-year-old female with a past medical history of end-stage renal disease on hemodialysis, hypertension, seizure disorder, bipolar disorder, schizophrenia, anxiety, limited mobility, and vascular dementia who presented to the ED from [facility] with report of altered mental status for several days AMS End-stage renal disease on hemodialysis-nephrology following SVT Hypotension Schizophrenia Vascular dementia Bipolar disorder Hypotension Echo 01/31/2022-EF 60 to 65%. Doppler flow pattern suggests impaired LV relaxation. Right ventricle systolic function is normal trace aortic regurgitation. Trace mitral regurgitation. Plan: Telemetry reviewed patient remains in sinus to sinus tach Due to anemia requiring PRBC transfusion will continue to hold anticoagulation Due to patient's mental status and comorbidities recommend conservative management No MARGOTH, ARB, beta-hernan due to hypotension Patient currently in sinus rhythm and has history of hypotension. Suspect hypotension is not of cardiac origin Agree with midodrine Defer volume management to nephrology due to patient renal function Pt seen in conjunction with Dr. Mojica, who agrees with the assessment and plan of care. - Patient Problems (1) Altered mental status Current Visit: Yes Status: Acute (2) Elevated troponin Current Visit: Yes Status: Acute (3) Uremic encephalopathy Current Visit: Yes Status: Acute (4) ESRD (end stage renal disease) on dialysis Current Visit: Yes Status: Chronic (5) Hypotension Current Visit: Yes Status: Chronic Qualifiers: (6) Schizophrenia Current Visit: Yes Status: Chronic Qualifiers: (7) Acute encephalopathy Current Visit: No Status: Acute (8) Bipolar disorder Current Visit: No Status: Acute (9) Cerebral atherosclerosis Current Visit: Yes Status: Chronic (10) Atrial fibrillation with RVR Current Visit: Yes Status: Acute (11) SVT (supraventricular tachycardia) Current Visit: Yes Status: Acute (12) Type 2 myocardial infarction Current Visit: Yes Status: Acute Subjective Date of service: 04/26/22 Principal diagnosis: AHRF; Shock; AMS; SVT; NSTEMI; ESRD; Protein calorie malnutrition Interval history: Patient resting in bed in no acute distress. Patient appears more lethargic this AM Patient in sinus rhythm 100s-110s Objective Vital Signs Temp Pulse Pulse Pulse Resp Resp BP 04/26/22 12:03 109 H 26 H 04/26/22 12:00 109 H 25 H 96/47 04/26/22 11:45 103 H 21 98/48 04/26/22 11:31 104 H 27 H 98/48 04/26/22 11:15 108 H 28 H 93/46 04/26/22 11:00 100 H 22 93/46 04/26/22 10:45 109 H 20 96/64 04/26/22 10:30 110 H 24 96/64 04/26/22 10:15 107 H 27 H 101/48 04/26/22 10:01 112 H 32 H 101/48 04/26/22 10:00 109 H 04/26/22 09:45 118 H 27 H 101/38 04/26/22 09:31 102 H 22 110/35 04/26/22 09:15 100 H 23 101/38 04/26/22 09:01 101 H 23 101/38 04/26/22 08:57 04/26/22 08:56 104 H 20 04/26/22 08:45 109 H 30 H 79/61 04/26/22 08:31 114 H 20 79/61 04/26/22 08:26 97.5 F L 04/26/22 08:20 109 H 28 H 04/26/22 08:15 109 H 28 H 100/49 04/26/22 08:00 100 H 23 94/54 04/26/22 07:45 100 H 24 94/44 04/26/22 07:30 111 H 29 H 106/52 04/26/22 07:15 100 H 23 95/49 04/26/22 07:00 101 H 29 H 91/51 04/26/22 06:45 99 H 22 92/45 04/26/22 06:30 97 H 25 H 103/52 04/26/22 06:15 99 H 20 96/45 04/26/22 06:00 99 H 22 99/47 04/26/22 05:45 107 H 22 109/61 04/26/22 05:30 98 H 25 H 102/50 04/26/22 05:15 99 H 25 H 94/52 04/26/22 05:00 98 H 24 102/54 04/26/22 04:45 98 H 22 104/59 04/26/22 04:30 106 H 26 H 95/66 04/26/22 04:15 110 H 20 119/67 04/26/22 04:00 99.2 F 102 H 105 H 25 H 104/56 04/26/22 03:45 100 H 26 H 96/57 04/26/22 03:31 105 H 25 H 109/55 04/26/22 03:15 104 H 24 96/53 04/26/22 03:00 114 H 32 H 115/73 04/26/22 02:45 114 H 31 H 110/66 04/26/22 02:30 113 H 27 H 119/70 04/26/22 02:15 110 H 29 H 107/60 04/26/22 02:00 114 H 27 H 118/66 04/26/22 01:45 113 H 31 H 121/67 04/26/22 01:30 108 H 31 H 114/63 04/26/22 01:15 107 H 26 H 104/53 04/26/22 01:00 106 H 26 H 105/53 04/26/22 00:45 114 H 27 H 129/62 04/26/22 00:30 111 H 26 H 107/43 04/26/22 00:15 116 H 32 H 124/67 04/26/22 00:00 99.2 F 111 H 110 H 26 H 120/54 04/25/22 23:45 112 H 26 H 108/54 04/25/22 23:30 112 H 29 H 111/61 04/25/22 23:15 113 H 24 108/51 04/25/22 23:00 115 H 27 H 104/54 04/25/22 22:45 118 H 21 114/90 04/25/22 22:37 113 H 26 H 114/90 04/25/22 22:31 127 H 22 114/90 04/25/22 22:15 114 H 28 H 110/56 04/25/22 22:00 115 H 21 120/63 04/25/22 21:50 04/25/22 21:48 98.7 F 114 H 32 H 114/69 04/25/22 21:45 112 H 30 H 114/69 04/25/22 21:30 108 H 22 115/50 04/25/22 21:15 108 H 30 H 110/56 04/25/22 21:00 107 H 37 H 125/68 04/25/22 20:45 111 H 32 H 115/59 04/25/22 20:30 103 H 27 H 115/59 04/25/22 20:15 104 H 28 H 130/61 04/25/22 20:08 103 H 26 H 04/25/22 20:00 99.6 F 109 H 111 H 29 H 130/61 04/25/22 19:45 101 H 29 H 108/62 04/25/22 19:30 98 H 29 H 113/65 04/25/22 19:15 99 H 25 H 117/59 04/25/22 19:00 105 H 26 H 122/65 04/25/22 18:50 98.7 F 106 H 28 H 125/59 04/25/22 18:45 107 H 34 H 125/59 04/25/22 18:30 106 H 26 H 109/61 04/25/22 18:15 109 H 29 H 114/58 04/25/22 18:10 99.2 F 110 H 23 111/54 04/25/22 18:00 113 H 30 H 111/54 04/25/22 17:55 99 F 109 H 24 119/74 04/25/22 17:45 116 H 27 H 119/74 04/25/22 17:30 111 H 16 124/61 04/25/22 17:15 107 H 24 105/57 04/25/22 17:00 110 H 22 120/67 04/25/22 16:45 107 H 29 H 111/55 04/25/22 16:30 109 H 26 H 116/51 04/25/22 16:15 111 H 24 125/58 04/25/22 16:00 99 F 110 H 110 H 24 113/47 04/25/22 15:45 109 H 23 125/62 04/25/22 15:31 109 H 42 H 107/56 04/25/22 15:15 103 H 26 H 109/50 Pulse Ox Pulse Ox 04/26/22 12:03 100 04/26/22 12:00 98 04/26/22 11:45 100 04/26/22 11:31 99 04/26/22 11:15 99 04/26/22 11:00 100 04/26/22 10:45 97 04/26/22 10:30 93 04/26/22 10:15 94 04/26/22 10:01 92 04/26/22 10:00 04/26/22 09:45 93 04/26/22 09:31 100 04/26/22 09:15 100 04/26/22 09:01 100 04/26/22 08:57 94 04/26/22 08:56 04/26/22 08:45 94 04/26/22 08:31 92 04/26/22 08:26 04/26/22 08:20 100 04/26/22 08:15 94 04/26/22 08:00 95 04/26/22 07:45 95 04/26/22 07:30 92 04/26/22 07:15 94 04/26/22 07:00 95 04/26/22 06:45 94 04/26/22 06:30 94 04/26/22 06:15 100 04/26/22 06:00 100 04/26/22 05:45 99 04/26/22 05:30 98 04/26/22 05:15 99 04/26/22 05:00 98 04/26/22 04:45 100 04/26/22 04:30 99 04/26/22 04:15 99 04/26/22 04:00 99 04/26/22 03:45 99 04/26/22 03:31 99 04/26/22 03:15 96 04/26/22 03:00 97 04/26/22 02:45 97 04/26/22 02:30 98 04/26/22 02:15 99 04/26/22 02:00 98 04/26/22 01:45 99 04/26/22 01:30 99 04/26/22 01:15 100 04/26/22 01:00 100 04/26/22 00:45 99 04/26/22 00:30 100 04/26/22 00:15 99 04/26/22 00:00 100 04/25/22 23:45 100 04/25/22 23:30 100 04/25/22 23:15 99 04/25/22 23:00 99 04/25/22 22:45 99 04/25/22 22:37 99 04/25/22 22:31 95 04/25/22 22:15 94 04/25/22 22:00 93 04/25/22 21:50 96 04/25/22 21:48 98 04/25/22 21:45 94 04/25/22 21:30 94 04/25/22 21:15 96 04/25/22 21:00 94 04/25/22 20:45 94 04/25/22 20:30 100 04/25/22 20:15 100 04/25/22 20:08 04/25/22 20:00 97 04/25/22 19:45 97 04/25/22 19:30 97 04/25/22 19:15 96 04/25/22 19:00 94 04/25/22 18:50 98 04/25/22 18:45 94 04/25/22 18:30 95 04/25/22 18:15 92 04/25/22 18:10 95 04/25/22 18:00 93 04/25/22 17:55 94 04/25/22 17:45 93 04/25/22 17:30 93 04/25/22 17:15 92 04/25/22 17:00 93 04/25/22 16:45 94 04/25/22 16:30 90 04/25/22 16:15 93 04/25/22 16:00 92 04/25/22 15:45 92 04/25/22 15:31 89 04/25/22 15:15 100 - Physical Examination General: No Apparent Distress HEENT: Positive: Normocephaly, Mucus Membranes Dry Neck: Positive: trachea midline. Negative: JVD/HJR Cardiac: Positive: Regular Rhythm, Tachycardia Lungs: Positive: Rales Neuro: Positive: Other (unable to assess) Abdomen: Positive: Soft Skin: Negative: Rash Extremities: Present: upper extr. pulses, Cool. Absent: edema - Labs and Meds CBC 04/25/22 04/26/22 Range/Units 22:44 04:20 WBC 7.0 (4.5-11.0) K/mm3 RBC 2.81 L (3.65-5.03) M/mm3 Hgb 8.8 L 8.0 L (10.1-14.3) gm/dl Hct 28.1 L D 25.4 L (30.3-42.9) % Plt Count 211 (140-440) K/mm3 - Imaging and Cardiology EKG: report reviewed, image reviewed Echo: report reviewed (TTE 01/31/2022 - EF 60 to 65%. Doppler flow pattern suggests impaired LV relaxation. Right ventricle systolic function is normal. Trace aortic regurgitation. Trace mitral regurgitation.) - Telemetry EKG Rhythm: Sinus Tachycardia - EKG Sinus rhythms and dysrhythmias: sinus tachycardia Repolarization changes or abnormalities: nonspecific abnormality, ST segment, and/or T wave - Allied health notes Allied health notes reviewed: nursing
[2022-04-26] MEDS: QUEtiapine 200 MG TAB FEEDTUBE SCH (21:03)
--- NOTE | 2022-04-27 02:17 | Consultation ---
DATE OF CONSULTATION: 04/26/2022 REFERRING PHYSICIAN: Jimmy Pinto M.D. INDICATION: 1. Weight loss. 2. Feeding tube placement. HISTORY OF PRESENT ILLNESS: The patient is a 66-year-old female with a history of hypertension, seizure disorder, vascular dementia as well as ____ dialysis. The patient also has a history of bipolar and schizophrenia. The patient presented from our clinic, being combative. The patient subsequently was admitted and treated for acute respiratory failure as well as shock. The patient has been stabilized. The patient has had poor p.o. intake and is now being seen by GI for possible PEG tube placement. The patient denies any other specific complaints at this time. PAST MEDICAL HISTORY: 1. Hypertension. 2. Seizure disorder. 3. Dementia. 4. End-stage renal disease. 5. Bipolar disorder. 6. Schizophrenia. MEDICATIONS: Reviewed and updated in chart. ALLERGIES: PENICILLIN AND BUSPIRONE. SOCIAL HISTORY: No alcohol, tobacco. FAMILY HISTORY: Negative for colon cancer. REVIEW OF SYSTEMS: GENERAL: Some weakness. HEENT: Denies visual complaints or tinnitus. PULMONARY: Rhonchi. CARDIOVASCULAR: Regular rate and rhythm. ABDOMEN: Soft. SKIN: No obvious rashes. LABORATORY DATA: Pertinent for white count of 7, hemoglobin and hematocrit of 8 and 25.4, platelet count of 211. Chem-7: Sodium of 134, potassium 3.9, chloride 97, CO2 of 23, BUN and creatinine 47 and 4.3. ASSESSMENT: A 66-year-old female with multiple medical problems, now being seen by GI for possible PEG tube placement. The patient with multiple active medical issues, but will require long-term nutrition support. PLAN: 1. We will review the chart. 3. Await clearance from Cardiology and other consultants. 4. Consider PEG tube, may be as early as 04/28/2022 if cleared by Cardiology and other consultants. 5. We will follow. TID: [id number] RECEIPT: [id number] CAB/PUN
[2022-04-27 05:08] LABS: Hematocrit 29.1 % (30.3-42.9); Mean Corpuscular HGB Conc 31 % (30-34); Mean Corpuscular Volume 93 fl (79-97); Platelet Count 235 K/mm3 (140-440); Red Blood Count 3.13 M/mm3 (3.65-5.03); Red Cell Distribution Width 17.4 % (13.2-15.2)
[2022-04-27 05:48] LABS: Calcium 9.7 mg/dL (8.4-10.2)
--- NOTE | 2022-04-27 09:15 | Progress Note ---
Assessment and Plan This is a 66-year-old female with HTN, GERD, seizure disorder, vascular dementia, ESRD on HD, chronic hypertension, bipolar, schizophrenia, anxiety admitted with acute hypoxic respiratory failure, acute on chronic hypotension, acute on chronic metabolic encephalopathy and SVT Acute on Chronic Hypotension Acute on Chronic Metabolic Encephalopathy SVT Elevated troponin, possibly demand ischemia Bipolar disorder/Schizophrenia, Hyperkalemia ESRD on hemodialysis, Anemia of chronic disease Get RUExt USS r/o DVT Midodrine increased to 20mg yesterday Get cortisol level to r/o adrenal insufficiency -Vasopressor support to keep MAP>60 as needed -Titrate supplemental oxygen to keep SpO2 90-92% -Supportive HD per Renal service -Monitor temperature curve and WCC trend -Supportive HD - avoid nephrotoxins, dose all medications for GFR/CrCL - avoid benzodiazepines, reduce the possibility of delirium -Maintain sleep-wake cycle -Mobility, off loading, frequent turning per facility protocol to prevent pressure ulcers -prn analgesia per pain score - VTE prophylaxis - Monitor hemodynamics closely -Nutrition support- SBFT in nares, patient is to get PEG placement -Supportive transfusions as clinically indicated t keep HgB >7g/dL CONDITION: CRITICAL PROGNOSIS: GUARDED CODE STATUS: FULL CODE The high probability of a clinically significant, sudden or life threatening deterioration of the multiple systems required my full and direct attention, intervention and personal management. The aggregate critical care time was [35] minutes. 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 and will likely need a PEG tube; denies chest pains or increased SOB; no N/V/F/C- mumbling, no fevers Objective Vital Signs - 12hr 04/26/22 04/26/22 04/26/22 21:31 21:45 22:00 Temperature Pulse Rate 96 H 99 H 100 H Pulse Rate [ From Monitor] Respiratory 24 25 H 24 Rate Blood Pressure 95/54 95/54 99/53 O2 Sat by Pulse 96 97 96 Oximetry 04/26/22 04/26/22 04/26/22 22:15 22:30 22:45 Temperature Pulse Rate 100 H 104 H 101 H Pulse Rate [ From Monitor] Respiratory 23 26 H 24 Rate Blood Pressure 99/53 95/51 95/51 O2 Sat by Pulse 97 96 97 Oximetry 04/26/22 04/26/22 04/26/22 23:00 23:15 23:30 Temperature Pulse Rate 101 H 102 H 101 H Pulse Rate [ From Monitor] Respiratory 23 27 H 26 H Rate Blood Pressure 97/56 97/56 93/52 O2 Sat by Pulse 96 97 97 Oximetry 04/26/22 04/26/22 04/27/22 23:41 23:45 00:00 Temperature 98.3 F Pulse Rate 105 H 105 H 102 H Pulse Rate [ 102 H From Monitor] Respiratory 27 H 28 H 28 H Rate Blood Pressure 93/52 93/52 97/53 O2 Sat by Pulse 96 96 97 Oximetry 04/27/22 04/27/22 04/27/22 00:15 00:30 00:45 Temperature Pulse Rate 100 H 101 H 102 H Pulse Rate [ From Monitor] Respiratory 24 27 H 29 H Rate Blood Pressure 97/53 94/48 94/48 O2 Sat by Pulse 96 96 97 Oximetry 04/27/22 04/27/22 04/27/22 01:01 01:15 01:30 Temperature Pulse Rate 103 H 101 H 99 H Pulse Rate [ From Monitor] Respiratory 27 H 26 H 24 Rate Blood Pressure 101/52 101/52 94/48 O2 Sat by Pulse 97 97 97 Oximetry 04/27/22 04/27/22 04/27/22 01:45 02:01 02:15 Temperature Pulse Rate 100 H 105 H 104 H Pulse Rate [ From Monitor] Respiratory 20 27 H 35 H Rate Blood Pressure 94/48 113/61 113/61 O2 Sat by Pulse 99 97 95 Oximetry 04/27/22 04/27/22 04/27/22 02:30 02:45 03:01 Temperature Pulse Rate 115 H 109 H 102 H Pulse Rate [ From Monitor] Respiratory 14 25 H 24 Rate Blood Pressure 120/71 120/71 85/36 O2 Sat by Pulse 95 97 99 Oximetry 04/27/22 04/27/22 04/27/22 03:15 03:30 03:45 Temperature Pulse Rate 107 H 103 H 102 H Pulse Rate [ From Monitor] Respiratory 21 24 22 Rate Blood Pressure 95/41 87/40 87/40 O2 Sat by Pulse 95 96 96 Oximetry 04/27/22 04/27/22 04/27/22 04:00 04:15 04:30 Temperature 99.0 F Pulse Rate 101 H 110 H 115 H Pulse Rate [ 101 H From Monitor] Respiratory 28 H 23 17 Rate Blood Pressure 83/43 83/43 104/68 O2 Sat by Pulse 99 96 93 Oximetry 04/27/22 04/27/22 04/27/22 04:45 05:00 05:15 Temperature Pulse Rate 108 H 104 H 104 H Pulse Rate [ From Monitor] Respiratory 29 H 20 26 H Rate Blood Pressure 104/68 90/47 90/47 O2 Sat by Pulse 95 96 97 Oximetry 04/27/22 04/27/22 04/27/22 05:30 06:00 06:30 Temperature Pulse Rate 110 H 100 H 99 H Pulse Rate [ From Monitor] Respiratory 27 H 25 H 29 H Rate Blood Pressure 86/43 84/40 86/39 O2 Sat by Pulse 97 99 98 Oximetry 04/27/22 04/27/22 04/27/22 07:00 07:30 08:00 Temperature Pulse Rate 111 H 104 H 109 H Pulse Rate [ From Monitor] Respiratory 39 H 27 H 25 H Rate Blood Pressure 94/49 87/52 96/51 O2 Sat by Pulse 91 94 92 Oximetry 04/27/22 08:15 Temperature Pulse Rate Pulse Rate [ From Monitor] Respiratory 24 Rate Blood Pressure O2 Sat by Pulse 95 Oximetry Constitutional: no acute distress, other (mumbling on and off) Eyes: non-icteric ENT: oropharynx moist, other (Small bowel feeding tube in nares) Neck: supple, no lymphadenopathy, no JVD Effort: normal Ascultation: Bilateral: clear, diminished breath sounds, rhonchi Percussion: Bilateral: not dull Cardiovascular: regular rate and rhythm, other (S1,S2) Gastrointestinal: normoactive bowel sounds, soft, non-tender, non-distended Integumentary: normal Extremities: no cyanosis, pulses normal, no ischemia or petechiae, edema (RUExt edema) Neurologic: non-focal exam (grossly), pupils equal and round, CN II-XII normal, motor strength normal and CBC and BMP: 04/27/22 04:45 04/27/22 04:45 ABG, PT/INR, D-dimer: PT/INR, D-dimer PT 17.9 Sec. (12.2-14.9) H 04/19/22 19:40 INR 1.28 (0.87-1.13) H 04/19/22 19:40 Abnormal lab findings: Abnormal Labs 04/19/22 04/19/22 04/19/22 04:53 04:53 04:53 WBC RBC 3.06 L Hgb 8.6 L Hct 28.0 L RDW 16.3 H [place] % (Auto) 11.3 H Lymph # (Auto) PT INR APTT Heparin Anti-Xa Level Sodium Potassium 5.1 H Chloride Carbon Dioxide 21 L BUN 94 H Creatinine 6.3 H Glucose POC Glucose Phosphorus Magnesium Troponin T 0.415 H* Albumin 2.7 L Free T4 0.28 L Crossmatch 04/19/22 04/19/22 04/20/22 19:40 19:40 05:30 WBC 4.1 L RBC 2.97 L Hgb 8.5 L 8.2 L Hct 27.8 L 27.1 L RDW 17.0 H [place] % (Auto) 15.2 H Lymph # (Auto) 1.1 L PT 17.9 H INR 1.28 H APTT 199.1 H* Heparin Anti-Xa Level Sodium Potassium Chloride Carbon Dioxide BUN Creatinine Glucose POC Glucose Phosphorus Magnesium Troponin T Albumin Free T4 Crossmatch 04/20/22 04/20/22 04/21/22 05:30 18:23 00:29 WBC RBC Hgb Hct RDW [place] % (Auto) Lymph # (Auto) PT INR APTT Heparin Anti-Xa Level 0.17 L Sodium Potassium Chloride Carbon Dioxide 21 L BUN 95 H Creatinine 6.6 H Glucose 139 H POC Glucose Phosphorus Magnesium 2.60 H Troponin T Albumin 2.4 L Free T4 Crossmatch 04/21/22 04/21/22 04/22/22 04:00 04:00 03:45 WBC RBC 2.74 L Hgb 7.7 L Hct 24.7 L RDW 16.6 H [place] % (Auto) Lymph # (Auto) PT INR APTT Heparin Anti-Xa Level < 0.10 L Sodium 133 L Potassium Chloride Carbon Dioxide 20 L BUN 89 H Creatinine 6.6 H Glucose 131 H POC Glucose Phosphorus 6.40 H Magnesium 2.50 H Troponin T Albumin Free T4 Crossmatch 04/22/22 04/22/22 04/22/22 03:45 12:13 14:30 WBC RBC Hgb Hct RDW [place] % (Auto) Lymph # (Auto) PT INR APTT Heparin Anti-Xa Level 0.11 L 0.11 L Sodium 136 L Potassium Chloride Carbon Dioxide 18 L BUN 90 H Creatinine 6.3 H Glucose 121 H POC Glucose Phosphorus 6.50 H Magnesium Troponin T Albumin Free T4 Crossmatch 04/22/22 04/23/22 04/23/22 23:08 02:17 04:10 WBC RBC Hgb 7.3 L Hct 23.3 L RDW [place] % (Auto) Lymph # (Auto) PT INR APTT Heparin Anti-Xa Level 0.14 L Sodium Potassium Chloride Carbon Dioxide BUN Creatinine Glucose POC Glucose 153 H Phosphorus Magnesium Troponin T Albumin Free T4 Crossmatch 04/23/22 04/23/22 04/23/22 04:10 06:09 23:22 WBC RBC Hgb Hct RDW [place] % (Auto) Lymph # (Auto) PT INR APTT Heparin Anti-Xa Level Sodium Potassium Chloride Carbon Dioxide BUN 36 H Creatinine 3.4 H Glucose 131 H POC Glucose 141 H 114 H Phosphorus Magnesium Troponin T Albumin Free T4 Crossmatch 04/24/22 04/24/22 04/24/22 02:10 04:00 04:00 WBC RBC 2.48 L Hgb 7.1 L Hct 22.6 L RDW 16.9 H [place] % (Auto) Lymph # (Auto) PT INR APTT Heparin Anti-Xa Level 0.12 L Sodium 134 L Potassium Chloride Carbon Dioxide BUN 42 H Creatinine 3.9 H Glucose 141 H POC Glucose Phosphorus Magnesium Troponin T Albumin Free T4 Crossmatch 04/24/22 04/24/22 04/24/22 05:03 10:20 11:24 WBC RBC Hgb Hct RDW [place] % (Auto) Lymph # (Auto) PT INR APTT Heparin Anti-Xa Level < 0.10 L Sodium Potassium Chloride Carbon Dioxide BUN Creatinine Glucose POC Glucose 142 H 144 H Phosphorus Magnesium Troponin T Albumin Free T4 Crossmatch 04/25/22 04/25/22 04/25/22 00:15 04:11 04:11 WBC 4.4 L RBC 2.38 L Hgb 6.7 L Hct 21.7 L RDW 17.2 H [place] % (Auto) Lymph # (Auto) PT INR APTT Heparin Anti-Xa Level Sodium 134 L Potassium Chloride 97.1 L Carbon Dioxide BUN 47 H Creatinine 4.3 H Glucose 106 H POC Glucose 136 H Phosphorus Magnesium Troponin T Albumin Free T4 Crossmatch 04/25/22 04/25/22 04/25/22 06:01 15:30 22:44 WBC RBC Hgb 8.8 L Hct 28.1 L D RDW [place] % (Auto) Lymph # (Auto) PT INR APTT Heparin Anti-Xa Level Sodium Potassium Chloride Carbon Dioxide BUN Creatinine Glucose POC Glucose 137 H Phosphorus Magnesium Troponin T Albumin Free T4 Crossmatch See Detail 04/26/22 04/27/22 04/27/22 04:20 04:45 04:45 WBC RBC 2.81 L 3.13 L Hgb 8.0 L 9.0 L Hct 25.4 L 29.1 L RDW 16.2 H 17.4 H [place] % (Auto) Lymph # (Auto) PT INR APTT Heparin Anti-Xa Level Sodium 131 L Potassium Chloride 93.5 L Carbon Dioxide BUN 44 H Creatinine 3.9 H Glucose 135 H POC Glucose Phosphorus Magnesium Troponin T Albumin Free T4 Crossmatch Allied health notes reviewed: nursing
--- NOTE | 2022-04-27 09:16 | Progress Note ---
Assessment and Plan Impression: * End stage renal disease * AMS * SVT s/p cardioversion * SIRS * NSTEMI * Hypotension * Anemia secondary to ESRD * Secondary hyperparathyroidism Plan: * Will continue hemodialysis prn, last 04/25- plan to continue // if hemodynamically stable, plan today * Note plans for potential PEG placement * Minimal UF removal given soft BP- adjust salt baths and temp prn * Dose medications for renal function * cardiology/pulmonary notes reviewed, appreciated * continue midodrine given soft BP * keep MAP>65, vasopressors prn * Avoid potential nephrotoxins * Epogen TIW prn * Renal/HD diet * Continue binders prn Subjective Date of service: 04/27/22 Principal diagnosis: AHRF; Shock; AMS; SVT; NSTEMI; ESRD; Protein calorie malnutrition Interval history: Seen in ICU, off pressor support (Levophed). Denies any concerning symptoms, resting in bed. Objective - Exam Narrative Exam: General: No acute distress Head: NC/AT Eyes: normal appearance Neck: Normal appearance Chest: coarse lung sounds CV: Regular rate and rhythm, right arm dialysis access Abdomen: Soft, normal bowel sounds, nontender, nondistended Neuro: alert, oriented, no focal deficits - Vital Signs Vital signs: Vital Signs - 12hr 04/26/22 04/26/22 04/26/22 21:15 21:31 21:45 Temperature Pulse Rate 96 H 96 H 99 H Pulse Rate [ From Monitor] Respiratory 25 H 24 25 H Rate Blood Pressure 94/60 95/54 95/54 O2 Sat by Pulse 96 96 97 Oximetry 04/26/22 04/26/22 04/26/22 22:00 22:15 22:30 Temperature Pulse Rate 100 H 100 H 104 H Pulse Rate [ From Monitor] Respiratory 24 23 26 H Rate Blood Pressure 99/53 99/53 95/51 O2 Sat by Pulse 96 97 96 Oximetry 04/26/22 04/26/22 04/26/22 22:45 23:00 23:15 Temperature Pulse Rate 101 H 101 H 102 H Pulse Rate [ From Monitor] Respiratory 24 23 27 H Rate Blood Pressure 95/51 97/56 97/56 O2 Sat by Pulse 97 96 97 Oximetry 04/26/22 04/26/22 04/26/22 23:30 23:41 23:45 Temperature Pulse Rate 101 H 105 H 105 H Pulse Rate [ From Monitor] Respiratory 26 H 27 H 28 H Rate Blood Pressure 93/52 93/52 93/52 O2 Sat by Pulse 97 96 96 Oximetry 04/27/22 04/27/22 04/27/22 00:00 00:15 00:30 Temperature 98.3 F Pulse Rate 102 H 100 H 101 H Pulse Rate [ 102 H From Monitor] Respiratory 28 H 24 27 H Rate Blood Pressure 97/53 97/53 94/48 O2 Sat by Pulse 97 96 96 Oximetry 04/27/22 04/27/22 04/27/22 00:45 01:01 01:15 Temperature Pulse Rate 102 H 103 H 101 H Pulse Rate [ From Monitor] Respiratory 29 H 27 H 26 H Rate Blood Pressure 94/48 101/52 101/52 O2 Sat by Pulse 97 97 97 Oximetry 04/27/22 04/27/22 04/27/22 01:30 01:45 02:01 Temperature Pulse Rate 99 H 100 H 105 H Pulse Rate [ From Monitor] Respiratory 24 20 27 H Rate Blood Pressure 94/48 94/48 113/61 O2 Sat by Pulse 97 99 97 Oximetry 04/27/22 04/27/22 04/27/22 02:15 02:30 02:45 Temperature Pulse Rate 104 H 115 H 109 H Pulse Rate [ From Monitor] Respiratory 35 H 14 25 H Rate Blood Pressure 113/61 120/71 120/71 O2 Sat by Pulse 95 95 97 Oximetry 04/27/22 04/27/22 04/27/22 03:01 03:15 03:30 Temperature Pulse Rate 102 H 107 H 103 H Pulse Rate [ From Monitor] Respiratory 24 21 24 Rate Blood Pressure 85/36 95/41 87/40 O2 Sat by Pulse 99 95 96 Oximetry 04/27/22 04/27/22 04/27/22 03:45 04:00 04:15 Temperature 99.0 F Pulse Rate 102 H 101 H 110 H Pulse Rate [ 101 H From Monitor] Respiratory 22 28 H 23 Rate Blood Pressure 87/40 83/43 83/43 O2 Sat by Pulse 96 99 96 Oximetry 04/27/22 04/27/22 04/27/22 04:30 04:45 05:00 Temperature Pulse Rate 115 H 108 H 104 H Pulse Rate [ From Monitor] Respiratory 17 29 H 20 Rate Blood Pressure 104/68 104/68 90/47 O2 Sat by Pulse 93 95 96 Oximetry 04/27/22 04/27/22 04/27/22 05:15 05:30 06:00 Temperature Pulse Rate 104 H 110 H 100 H Pulse Rate [ From Monitor] Respiratory 26 H 27 H 25 H Rate Blood Pressure 90/47 86/43 84/40 O2 Sat by Pulse 97 97 99 Oximetry 04/27/22 04/27/22 04/27/22 06:30 07:00 07:30 Temperature Pulse Rate 99 H 111 H 104 H Pulse Rate [ From Monitor] Respiratory 29 H 39 H 27 H Rate Blood Pressure 86/39 94/49 87/52 O2 Sat by Pulse 98 91 94 Oximetry 04/27/22 04/27/22 08:00 08:15 Temperature Pulse Rate 109 H Pulse Rate [ From Monitor] Respiratory 25 H 24 Rate Blood Pressure 96/51 O2 Sat by Pulse 92 95 Oximetry - Lab 04/27/22 04:45 04/27/22 04:45 Most recent lab results Calcium 9.7 mg/dL (8.4-10.2) 04/27/22 04:45 Phosphorus 2.50 mg/dL (2.5-4.5) 04/24/22 04:00 Magnesium 1.80 mg/dL (1.7-2.3) 04/24/22 04:00 Medications & Allergies - Medications Allergies/Adverse Reactions: Allergies buspirone [From BuSpar] Allergy (Verified 04/18/22 12:22) Unknown Penicillins Allergy (Verified 04/18/22 12:22) Rash corn Adverse Reaction (Verified 04/18/22 12:22) Unknown Home Medications: Home Medications Medication Instructions Recorded Confirmed Last Taken Type Sevelamer Carbonate [Renvela] 0.8 gram PO TIDWM 09/02/20 02/02/22 05/31/21 History HYDROcodone/APAP 5-325 [[place] 1 each PO Q4HR PRN #30 tablet 05/18/21 02/02/22 Unknown Rx 5-325 mg TAB] ALBUTEROL NEB's [Proventil 0.083% 2.5 mg IH Q3HRT PRN #1 nebu 03/03/22 Unknown Rx NEBS] Clopidogrel [Plavix] 75 mg PO QDAY #90 tablet 03/03/22 Unknown Rx Divalproex [Sarina Serrano] 750 mg PO BID #60 tablet 03/03/22 Unknown Rx LORazepam [Ativan] 1 mg PO DAILY #30 tab 03/03/22 Unknown Rx Memantine Xr [Namenda Xr] 5 mg PO DAILY #30 cap 03/03/22 Unknown Rx Midodrine [Proamatine] 10 mg PO TID #90 tab 03/03/22 Unknown Rx Pantoprazole [Protonix TAB] 40 mg PO DAILY #30 tab 03/03/22 Unknown Rx QUEtiapine [SEROquel] 400 mg PO BID #60 tab 03/03/22 Unknown Rx risperiDONE [RisperDAL] 0.5 mg PO BID #60 tab 03/03/22 Unknown Rx Active Medications: Generic Name Dose Route Start Last Admin Trade Name Freq PRN Reason Stop Dose Admin Acetaminophen 650 mg 04/22/22 20:12 04/24/22 17:55 Acetaminophen 325 Mg/10.15 Ml Oral Liqd Unit Dose PO 650 mg Q6H PRN Administration Pain MILD(1-3)/Fever >100.5/DRAKE Albumin Human 25 gm 04/21/22 13:00 04/22/22 16:31 Albumin Human 25% (25 Gm/100 Ml) Inj IV 25 gm BIANCA PRN Administration Hypotension Albuterol 2.5 mg 04/21/22 08:30 04/24/22 16:51 Albuterol 2.5 Mg/3 Ml Nebu IH 2.5 mg Q3HRT PRN Administration Shortness Of Breath Albuterol/Ipratropium 1 ampul 04/21/22 14:00 04/26/22 20:10 Ipratropium/Albuterol Sulfate 3 Ml Ampul.Neb IH 1 ampul TIDRT CONNOR Administration Clopidogrel Bisulfate 75 mg 04/23/22 10:00 04/26/22 10:57 Clopidogrel 75 Mg Tab FEEDTUBE 75 mg QDAY CONNOR Administration Epoetin Lb-epbx 20,000 unit 04/23/22 12:00 04/25/22 20:00 Epoetin Lb-Epbx 20,000 Unit/1 Ml Vial IV 20,000 unit BIANCA PRN Administration HEMODIALYSIS NORepinephrine/NS 8 MG-250 ML 8 mg in 250 mls @ 3.75 mls/hr 04/19/22 09:00 04/24/22 12:45 Norepinephrine/Ns 8 Mg-250 Ml (Double Conc) IV 0 mcg/min TITRATE CONNOR 0 mls/hr Titration Protocol 2 MCG/MIN Sodium Chloride 100 mls @ 999 mls/hr 04/22/22 09:12 Nacl 0.9% IV BIANCA PRN Hypotension Lansoprazole 30 mg 04/23/22 10:00 04/26/22 10:57 Lansoprazole 30 Mg Solutab FEEDTUBE 30 mg QDAY CONNOR Administration Lorazepam 0.5 mg 04/25/22 09:59 Lorazepam 0.5 Mg Tab FEEDTUBE QDAY PRN Anxiety Memantine 5 mg 04/25/22 10:00 04/26/22 21:03 Memantine 5 Mg Tab FEEDTUBE 5 mg BID CONNOR Administration Metoclopramide HCl 5 mg 04/19/22 09:55 Metoclopramide 10 Mg/2 Ml Inj IV Q6H PRN Nausea And Vomiting Midodrine 20 mg 04/26/22 14:00 04/26/22 19:55 Midodrine 10 Mg Tab FEEDTUBE 20 mg TID CONNOR Administration Naloxone HCl 0.1 mg 04/19/22 09:55 Naloxone 0.4 Mg/1 Ml Inj IV Q2MIN PRN Res Rate </= 8 or 02 SAT < 92% Quetiapine Fumarate 200 mg 04/25/22 22:00 04/26/22 21:03 Quetiapine 200 Mg Tab FEEDTUBE 200 mg QHS CONNOR Administration Quetiapine Fumarate 100 mg 04/26/22 10:00 04/26/22 10:57 Quetiapine 100 Mg Tab FEEDTUBE 100 mg QAM CONNOR Administration Risperidone 0.5 mg 04/25/22 11:00 04/26/22 21:03 Risperidone 1 Mg Tab FEEDTUBE 0.5 mg BID CONNOR Administration Senna 17.2 mg 04/23/22 10:00 04/26/22 21:03 Sennosides 8.6 Mg Tab FEEDTUBE 17.2 mg BID CONNOR Administration Sodium Chloride 10 ml 04/19/22 12:00 04/26/22 21:03 Sodium Chloride 0.9% 10 Ml Flush Syringe IV 10 ml BID CONNOR Administration Sodium Chloride 10 ml 04/19/22 11:19 Sodium Chloride 0.9% 10 Ml Flush Syringe IV PRN PRN LINE FLUSH Valproic Acid 750 mg 04/22/22 22:00 04/26/22 21:03 Valproic Acid 250 Mg/5 Ml Oral Liqd FEEDTUBE 750 mg BID CONNOR Administration
[2022-04-27] MEDS: IPRATROPIUM/ALBUTEROL SULFATE 3 ML AMPUL.NEB IH SCH ×3 (09:35→20:26)
[2022-04-27] MEDS: MEMANTINE 5 MG TAB FEEDTUBE SCH ×2 (09:40→21:50)
[2022-04-27] MEDS: MIDODRINE 10 MG TAB FEEDTUBE SCH ×3 (09:40→21:49)
[2022-04-27] MEDS: LANSOPRAZOLE 30 MG SOLUTAB FEEDTUBE SCH (09:41)
[2022-04-27] MEDS: VALPROIC ACID 250 MG/5 ML ORAL LIQD FEEDTUBE SCH ×2 (09:41→21:49)
[2022-04-27] MEDS: CLOPIDOGREL 75 MG TAB FEEDTUBE SCH (09:41)
[2022-04-27] MEDS: QUEtiapine 100 MG TAB FEEDTUBE SCH (09:41)
[2022-04-27] MEDS: risperiDONE 1 MG TAB FEEDTUBE SCH ×2 (09:41→21:49)
[2022-04-27] MEDS: SENNOSIDES 8.6 MG TAB FEEDTUBE SCH ×2 (09:50→21:49)
--- NOTE | 2022-04-27 13:07 | Gastroenterology Progress Note ---
Assessment and Plan 1. gi: No GI issues overnight - Sppech note reviewed, recommend peg - will need cardiac clearance - possible peg in am if ok with consultants - will follow Subjective Date of service: 04/27/22 Principal diagnosis: AHRF; Shock; AMS; SVT; NSTEMI; ESRD; Protein calorie malnutrition Interval history: - no GI issues overnight Objective - Constitutional Vitals: Temp Pulse Resp BP Pulse Ox 98.7 F 106 H 26 H 75/38 98 04/27/22 08:00 04/27/22 11:00 04/27/22 11:58 04/27/22 11:00 04/27/22 11:58 General appearance: no acute distress - EENT Eyes: PERRL - Respiratory Respiratory: bilateral: CTA - Cardiovascular Rhythm: regular Heart Sounds: Present: S1 & S2 - Gastrointestinal General gastrointestinal: Present: soft, non-tender, non-distended - Labs CBC & Chem 7: 04/27/22 04:45 04/27/22 04:45 Labs: Laboratory Results - last 24 hr 04/27/22 04/27/22 04:45 04:45 WBC 10.0 RBC 3.13 L Hgb 9.0 L Hct 29.1 L MCV 93 MCH 29 MCHC 31 RDW 17.4 H Plt Count 235 Sodium 131 L Potassium 4.1 Chloride 93.5 L Carbon Dioxide 26 Anion Gap 16 BUN 44 H Creatinine 3.9 H Estimated GFR 14 BUN/Creatinine Ratio 11 Glucose 135 H Calcium 9.7
--- NOTE | 2022-04-27 13:52 | Progress Note ---
Assessment and Plan Patient is a 66-year-old female with a past medical history of end-stage renal disease on hemodialysis, hypertension, seizure disorder, bipolar disorder, schizophrenia, anxiety, limited mobility, and vascular dementia who presented to the ED from [facility] with report of altered mental status for several days AMS End-stage renal disease on hemodialysis-nephrology following SVT Hypotension Schizophrenia Vascular dementia Bipolar disorder Hypotension Echo 01/31/2022-EF 60 to 65%. Doppler flow pattern suggests impaired LV relaxation. Right ventricle systolic function is normal trace aortic regurgitation. Trace mitral regurgitation. Plan: Telemetry reviewed patient remains in sinus to sinus tach Due to anemia requiring PRBC transfusion will continue to hold anticoagulation Due to patient's mental status and comorbidities recommend conservative management No MARGOTH, ARB, beta-hernan due to hypotension Patient currently in sinus rhythm and has history of hypotension. Suspect hypotension is not of cardiac origin Agree with midodrine Defer volume management to nephrology due to patient renal function Per documentation and discussion with staff patient is pending placement of PEG Pt is a non-modifiable risk CV pt awaiting intervention for PEG. RCRI class is IV (3 points, 15% risk of MACE). In the absence however of ischemic cardiac symptoms or acutely decompensated HF, there are no contraindications to intervention at this time from a CV standpoint. Pt seen in conjunction with Dr. Garcia, who agrees with the assessment and plan of care. - Patient Problems (1) Altered mental status Current Visit: Yes Status: Acute (2) Elevated troponin Current Visit: Yes Status: Acute (3) Uremic encephalopathy Current Visit: Yes Status: Acute (4) ESRD (end stage renal disease) on dialysis Current Visit: Yes Status: Chronic (5) Hypotension Current Visit: Yes Status: Chronic Qualifiers: (6) Schizophrenia Current Visit: Yes Status: Chronic Qualifiers: (7) Acute encephalopathy Current Visit: No Status: Acute (8) Bipolar disorder Current Visit: No Status: Acute (9) Cerebral atherosclerosis Current Visit: Yes Status: Chronic (10) Atrial fibrillation with RVR Current Visit: Yes Status: Acute (11) SVT (supraventricular tachycardia) Current Visit: Yes Status: Acute (12) Type 2 myocardial infarction Current Visit: Yes Status: Acute Subjective Date of service: 04/27/22 Principal diagnosis: AHRF; Shock; AMS; SVT; NSTEMI; ESRD; Protein calorie malnutrition Interval history: Patient resting in bed in no acute distress. Patient in sinus rhythm 110s-120s Objective Vital Signs Temp Pulse Pulse Pulse Resp Resp BP 04/27/22 11:58 26 H 04/27/22 11:00 106 H 38 H 75/38 04/27/22 10:30 121 H 37 H 99/39 04/27/22 10:00 115 H 18 79/56 04/27/22 09:31 105 H 29 H 81/39 04/27/22 09:01 112 H 30 H 102/36 04/27/22 08:30 105 H 29 H 85/39 04/27/22 08:15 24 04/27/22 08:00 98.7 F 109 H 104 H 25 H 22 96/51 04/27/22 07:30 104 H 27 H 87/52 04/27/22 07:00 111 H 39 H 94/49 04/27/22 06:30 99 H 29 H 86/39 04/27/22 06:00 100 H 25 H 84/40 04/27/22 05:30 110 H 27 H 86/43 04/27/22 05:15 104 H 26 H 90/47 04/27/22 05:00 104 H 20 90/47 04/27/22 04:45 108 H 29 H 104/68 04/27/22 04:30 115 H 17 104/68 04/27/22 04:15 110 H 23 83/43 04/27/22 04:00 99.0 F 101 H 101 H 28 H 83/43 04/27/22 03:45 102 H 22 87/40 04/27/22 03:30 103 H 24 87/40 04/27/22 03:15 107 H 21 95/41 04/27/22 03:01 102 H 24 85/36 04/27/22 02:45 109 H 25 H 120/71 04/27/22 02:30 115 H 14 120/71 04/27/22 02:15 104 H 35 H 113/61 04/27/22 02:01 105 H 27 H 113/61 04/27/22 01:45 100 H 20 94/48 04/27/22 01:30 99 H 24 94/48 04/27/22 01:15 101 H 26 H 101/52 04/27/22 01:01 103 H 27 H 101/52 04/27/22 00:45 102 H 29 H 94/48 04/27/22 00:30 101 H 27 H 94/48 04/27/22 00:15 100 H 24 97/53 04/27/22 00:00 98.3 F 102 H 102 H 28 H 97/53 04/26/22 23:45 105 H 28 H 93/52 04/26/22 23:41 105 H 27 H 93/52 04/26/22 23:30 101 H 26 H 93/52 04/26/22 23:15 102 H 27 H 97/56 04/26/22 23:00 101 H 23 97/56 04/26/22 22:45 101 H 24 95/51 04/26/22 22:30 104 H 26 H 95/51 04/26/22 22:15 100 H 23 99/53 04/26/22 22:00 100 H 24 99/53 04/26/22 21:45 99 H 25 H 95/54 04/26/22 21:31 96 H 24 95/54 04/26/22 21:15 96 H 25 H 94/60 04/26/22 21:00 103 H 27 H 94/60 04/26/22 20:45 99 H 25 H 104/56 04/26/22 20:30 97 H 25 H 104/56 04/26/22 20:15 99 H 20 107/51 04/26/22 20:00 98.2 F 94 H 101 H 97 H 22 21 99/48 04/26/22 19:46 97 H 25 H 107/51 04/26/22 19:31 103 H 27 H 107/51 04/26/22 19:15 103 H 13 103/51 04/26/22 19:00 99 H 21 86/44 04/26/22 18:45 100 H 26 H 106/61 04/26/22 18:31 103 H 20 106/61 04/26/22 18:15 99 H 30 H 81/39 04/26/22 18:00 97 H 22 74/35 04/26/22 17:45 95 H 22 96/41 04/26/22 17:30 95 H 20 90/41 04/26/22 17:15 95 H 20 95/48 04/26/22 17:00 96 H 20 77/35 04/26/22 16:45 94 H 23 93/44 04/26/22 16:39 98 H 18 04/26/22 16:30 94 H 21 93/44 04/26/22 16:15 107 H 26 H 95/49 04/26/22 16:01 101 H 22 95/49 04/26/22 15:55 98.2 F 98 H 26 H 04/26/22 15:45 100 H 28 H 95/49 04/26/22 15:30 93 H 21 95/49 04/26/22 15:15 97 H 26 H 97/50 04/26/22 15:00 94 H 22 97/50 04/26/22 14:45 97 H 25 H 104/63 04/26/22 14:30 101 H 28 H 104/63 04/26/22 14:15 95 H 22 94/52 04/26/22 14:00 95 H 21 94/52 Pulse Ox 04/27/22 11:58 98 04/27/22 11:00 96 04/27/22 10:30 100 04/27/22 10:00 96 04/27/22 09:31 99 04/27/22 09:01 91 04/27/22 08:30 93 04/27/22 08:15 95 04/27/22 08:00 92 04/27/22 07:30 94 04/27/22 07:00 91 04/27/22 06:30 98 04/27/22 06:00 99 04/27/22 05:30 97 04/27/22 05:15 97 04/27/22 05:00 96 04/27/22 04:45 95 04/27/22 04:30 93 04/27/22 04:15 96 04/27/22 04:00 99 04/27/22 03:45 96 04/27/22 03:30 96 04/27/22 03:15 95 04/27/22 03:01 99 04/27/22 02:45 97 04/27/22 02:30 95 04/27/22 02:15 95 04/27/22 02:01 97 04/27/22 01:45 99 04/27/22 01:30 97 04/27/22 01:15 97 04/27/22 01:01 97 04/27/22 00:45 97 04/27/22 00:30 96 04/27/22 00:15 96 04/27/22 00:00 97 04/26/22 23:45 96 04/26/22 23:41 96 04/26/22 23:30 97 04/26/22 23:15 97 04/26/22 23:00 96 04/26/22 22:45 97 04/26/22 22:30 96 04/26/22 22:15 97 04/26/22 22:00 96 04/26/22 21:45 97 04/26/22 21:31 96 04/26/22 21:15 96 04/26/22 21:00 97 04/26/22 20:45 99 04/26/22 20:30 100 04/26/22 20:15 100 04/26/22 20:00 99 04/26/22 19:46 99 04/26/22 19:31 98 04/26/22 19:15 94 04/26/22 19:00 93 04/26/22 18:45 93 04/26/22 18:31 92 04/26/22 18:15 93 04/26/22 18:00 94 04/26/22 17:45 94 04/26/22 17:30 95 04/26/22 17:15 100 04/26/22 17:00 100 04/26/22 16:45 100 04/26/22 16:39 04/26/22 16:30 99 04/26/22 16:15 96 04/26/22 16:01 92 04/26/22 15:55 92 04/26/22 15:45 92 04/26/22 15:30 100 04/26/22 15:15 100 04/26/22 15:00 100 04/26/22 14:45 100 04/26/22 14:30 100 04/26/22 14:15 100 04/26/22 14:00 100 - Physical Examination General: No Apparent Distress HEENT: Positive: Normocephaly, Mucus Membranes Dry Neck: Positive: trachea midline. Negative: JVD/HJR Cardiac: Positive: Regular Rhythm, Tachycardia Neuro: Positive: Other (unable to assess) Abdomen: Positive: Soft Skin: Negative: Rash Extremities: Present: upper extr. pulses, Cool. Absent: edema - Labs and Meds CBC 04/27/22 Range/Units 04:45 WBC 10.0 (4.5-11.0) K/mm3 RBC 3.13 L (3.65-5.03) M/mm3 Hgb 9.0 L (10.1-14.3) gm/dl Hct 29.1 L (30.3-42.9) % Plt Count 235 (140-440) K/mm3 Comprehensive Metabolic Panel 04/27/22 Range/Units 04:45 Sodium 131 L (137-145) mmol/L Potassium 4.1 (3.6-5.0) mmol/L Chloride 93.5 L (98-107) mmol/L Carbon Dioxide 26 (22-30) mmol/L BUN 44 H (7-17) mg/dL Creatinine 3.9 H (0.6-1.2) mg/dL Glucose 135 H (65-100) mg/dL Calcium 9.7 (8.4-10.2) mg/dL - Imaging and Cardiology EKG: report reviewed, image reviewed Echo: report reviewed (TTE 01/31/2022 - EF 60 to 65%. Doppler flow pattern suggests impaired LV relaxation. Right ventricle systolic function is normal. Trace aortic regurgitation. Trace mitral regurgitation.) - Telemetry EKG Rhythm: Sinus Tachycardia - EKG Sinus rhythms and dysrhythmias: sinus tachycardia Repolarization changes or abnormalities: nonspecific abnormality, ST segment, and/or T wave - Allied health notes Allied health notes reviewed: nursing
[2022-04-27] MEDS ORDERED: PHENYLEPHRINE 100 MG in SODIUM CHLORIDE 0.9% 90 ML IV SCH (14:00)
[2022-04-27] MEDS: NORepinephrine/NS 8 MG-250 ML 8 MG/250 ML INFUS..BTL IV SCH (14:30)
--- NOTE | 2022-04-27 14:52 | Progress Note ---
<NONALORRAINE WintersSue - Last Filed: 04/27/22 14:52> Assessment and Plan Assessment and plan: This is a 66-year-old female with HTN, GERD, seizure disorder, vascular dementia, ESRD on HD, chronic hypertension, bipolar, schizophrenia, anxiety admitted with acute hypoxic respiratory failure, acute on chronic hypotension, acute on chronic metabolic encephalopathy and SVT Neuro: h/o vascular dementia, schizophrenia, bipolar, anxiety disorder -Continue home Seroquel at reduced dose -As needed Ativan -Reorientation as needed -Maintain sleep-wake cycle -As needed analgesia -Continue home memantine, respiradol, valproic acid -CT head showed no acute intracranial abnormalities, no significant interval changes -psych consulted, appreciate recommendations Cardiac: SVT s/p cardioversion, chronic hypotension, NSTEMI type II -Cardiology consulted, appreciate recommendations -Blood pressure monitoring per protocol -s/p vasopressor support with Levophed -MAP goal 60 -Restarted on levpophed 04/27 -Midodrine increased to 20mg TID -Echo 01/31/2022-EF 60 to 65%. Doppler flow pattern suggests impaired LV relaxation. Right ventricle systolic function is normal trace aortic re gurgitation. Trace mitral regurgitation. -Lipitor, Plavix Respiratory: Acute hypoxic respiratory failure -CCM consulted, appreciate recommendations -Chest ultrasound shows bilateral pleural effusions, right greater than left -Supplemental oxygen as needed -Pulmonary hygiene -SPO2 monitor per protocol GI: Moderate protein calorie malnutrition -24 hours +190 mL -PPI -TF -GI consulted for PEG tube placement -BR: Senokot : ESRD on HD -Nephrology consulted, appreciate recommendations -HD per nephrology -HD 05/05 with no fluid removal -Monitor intake and output -Renally dose medications -Avoid nephrotoxic medications -Epogen 3 times daily -Trend BMP ID: NAD -f/u blood culture -04/19 blood cultures x2 NGTD -Monitor WBC and temperature curve Endo: NAD -Avoid hypoglycemia Heme: Anemia of chronic disease -Trend CBC -Transfuse hemoglobin less than 7 -s/p 1 unit PRBC -Epogen 3 times daily -SCDs to BLE while in bed The high probability of a clinically significant, sudden or life threatening deterioration of the [multiple] system(s) required my full and direct attention, intervention and personal management. The aggregate critical care time was [60] minutes. This time is in addition to time spent performing reported procedures but includes the following: [x] Data Review and interpretation [x] Patient assessment and monitoring of vital signs [x] Documentation [x] Medication orders and management Disposition Plan: icu Total Time Spent with Patient (Minutes): 60 History Interval history: This is a 66-year-old female with HTN, GERD, seizure disorder, vascular dementia, ESRD on HD (TTS), OA, chronic hypotension, bipolar, schizophrenia, anxiety examined mobility with a resident of [facility] present to the emergency department on 04/19 with altered mental status and for being combative causing her to miss several days of hemodialysis. On presentation patient was found to be more hypertensive than usual and on room air with oxygen saturations in the 90s and she subsequently went into SVT into the 150s requiring cardioversion under conscious sedation. Patient was admitted to the hospital service with acute hypoxic respiratory failure, acute on chronic hypotension, acute on chronic metabolic encephalopathy, SVT, hyperkalemia, NSTEMI type II to the ICU with consults to CCM, nephrology cardiology and psych. Hospital Course to Date: 04/20: Patient went into Afib with RVR overnight, now on amiodarone gtt per cardio. Patient remains in AFib with RVR this am, HR in the 120-140s. BP dakota inal on Levophed gtt, currently not a candidate for BB. Midodrine increased to 15mg TID. 2D Echo pending. On heparin gtt per protocol. No HD today per nephro due to hypotension and tachycardia. 04/21: Converted to SR this am, remains on Amiodarone and heparin. Awaiting cardio final recommendations. Still on Levophed gtt for low BP, given patient history of chronic hypotension, Wean pressor for MAP goal of 60s. Patient is pocketing foods, currently NPO, awaiting speech eval and treat. 04/22: Patient passed speech swallow eval yesterday, however, patient is refusing PO intakes including meds. Will insert DHT for nutrition and meds administration. Patient remains in SR this am, amiodaron gtt transitioned to PO per cardio. Patient remains on heparin and Levophed gtt. Patient has not received PO midrodrine for 24hrs, resume meds once DHT is inserted. Keep femoral CVC for another 24hrs, anticipating will be able to wean off pressor once patient receive midodrine. Will reassess in the morning. No HD overnight, unable to cannulate AVF, plan to attempt again today per Nephro. Possible IR/Vascular surgery consult if unsuccessful again today. 04/23: Mentation a lot better this am. DHT was inserted, meds resumed and TF initiated. Levophed gtt increased overnight due to worsen hypotension, suspected it is due to sedative agents. Seroquel decreased to 200mg BID and scheduled ativan switched to PRN. Continue midodrine TID and wean off levophed gtt for MAP goal of 60. Patient tolerated HD yesterday, continue iHD per Nephrology. CCM recommendations noted, Chest US ordered for pleural effusion. 04/24: RN instructed to wean Levophed off, goal MAP of 60. Heparin drip stopped due to decreasing hemoglobin. 04/25: ST had cleared the patient for pured diet which will be started today, hemodialysis planned for today, patient was to be anemic and will receive 1 unit PRBC with HD. We will increase midodrine to 20 mg 3 times daily if patient becomes hypotensive during dialysis. Per CCM. Decrease in seroqoul but will increase if needed 04/26: Patient agreeable to PEG, GI consulted for placement. Femoral line removed 04/27: No acute events reported overnight, patient has been cardiac cleared for PEG tube placement. Possible PEG in the a.m. This afternoon attempted to place IJ CVL which was unsuccessful and Dr. Mcguire ultimately placed femoral CVL for the initiation of Levophed. HD scheduled for today. Hospitalist Physical - Constitutional Vitals: Temp Pulse Resp BP Pulse Ox 98.7 F 106 H 26 H 75/38 98 04/27/22 08:00 04/27/22 11:00 04/27/22 11:58 04/27/22 11:00 04/27/22 11:58 General appearance: Present: no acute distress, well-nourished - EENT Eyes: Present: EOM intact ENT: poor dentition - Neck Neck: Present: normal ROM - Respiratory Respiratory effort: normal Respiratory: bilateral: diminished, rhonchi - Cardiovascular Rhythm: regular Heart Sounds: Present: S1 & S2. Absent: systolic murmur, diastolic murmur - Extremities Extremities: no ischemia, pulses intact, pulses symmetrical Extremity abnormal: edema Peripheral Pulses: within normal limits - Abdominal General gastrointestinal: soft, non-tender, normal bowel sounds - Integumentary Integumentary: Present: warm, dry - Psychiatric Psychiatric: other - Neurologic Neurologic: other (intact cough/gag, able to answer questions this AM) - Allied Health Allied health notes reviewed: nursing, RT, social work HEART Score - HEART Score Troponin: Troponin T 0.415 ng/mL (0.00-0.029) H* 04/19/22 04:53 Results - Labs CBC & Chem 7: 04/27/22 04:45 04/27/22 04:45 Labs: Laboratory Last Values WBC 10.0 K/mm3 (4.5-11.0) 04/27/22 04:45 RBC 3.13 M/mm3 (3.65-5.03) L 04/27/22 04:45 Hgb 9.0 gm/dl (10.1-14.3) L 04/27/22 04:45 Hct 29.1 % (30.3-42.9) L 04/27/22 04:45 MCV 93 fl (79-97) 04/27/22 04:45 MCH 29 pg (28-32) 04/27/22 04:45 MCHC 31 % (30-34) 04/27/22 04:45 RDW 17.4 % (13.2-15.2) H 04/27/22 04:45 Plt Count 235 K/mm3 (140-440) 04/27/22 04:45 Lymph % (Auto) 26.7 % (13.4-35.0) 04/20/22 05:30 Imperial % (Auto) 15.2 % (0.0-7.3) H 04/20/22 05:30 Eos % (Auto) 3.8 % (0.0-4.3) 04/20/22 05:30 Baso % (Auto) 1.2 % (0.0-1.8) 04/20/22 05:30 Lymph # (Auto) 1.1 K/mm3 (1.2-5.4) L 04/20/22 05:30 Imperial # (Auto) 0.6 K/mm3 (0.0-0.8) 04/20/22 05:30 Eos # (Auto) 0.2 K/mm3 (0.0-0.4) 04/20/22 05:30 Baso # (Auto) 0.0 K/mm3 (0.0-0.1) 04/20/22 05:30 Seg Neutrophils % 53.1 % (40.0-70.0) 04/20/22 05:30 Seg Neutrophils # 2.2 K/mm3 (1.8-7.7) 04/20/22 05:30 PT 17.9 Sec. (12.2-14.9) H 04/19/22 19:40 INR 1.28 (0.87-1.13) H 04/19/22 19:40 APTT 199.1 Sec. (24.2-36.6) H* 04/19/22 19:40 Heparin Anti-Xa Level < 0.10 U.I./ml (0.3-0.7) L 04/24/22 10:20 Sodium 131 mmol/L (137-145) L 04/27/22 04:45 Potassium 4.1 mmol/L (3.6-5.0) 04/27/22 04:45 Chloride 93.5 mmol/L (98-107) L 04/27/22 04:45 Carbon Dioxide 26 mmol/L (22-30) 04/27/22 04:45 Anion Gap 16 mmol/L 04/27/22 04:45 BUN 44 mg/dL (7-17) H 04/27/22 04:45 Creatinine 3.9 mg/dL (0.6-1.2) H 04/27/22 04:45 Estimated GFR 14 ml/min 04/27/22 04:45 BUN/Creatinine Ratio 11 % 04/27/22 04:45 Glucose 135 mg/dL (65-100) H 04/27/22 04:45 POC Glucose 137 mg/dL (70-105) H 04/25/22 06:01 Lactic Acid 1.60 mmol/L (0.7-2.0) 04/19/22 07:14 Calcium 9.7 mg/dL (8.4-10.2) 04/27/22 04:45 Phosphorus 2.50 mg/dL (2.5-4.5) 04/24/22 04:00 Magnesium 1.80 mg/dL (1.7-2.3) 04/24/22 04:00 Total Bilirubin 0.30 mg/dL (0.1-1.2) 04/20/22 05:30 AST 11 units/L (5-40) 04/20/22 05:30 ALT 7 units/L (7-56) 04/20/22 05:30 Alkaline Phosphatase 101 units/L (35-129) 04/20/22 05:30 Ammonia 25.0 umol/L (25-60) 04/19/22 04:53 Troponin T 0.415 ng/mL (0.00-0.029) H* 04/19/22 04:53 Total Protein 6.4 g/dL (6.3-8.2) 04/20/22 05:30 Albumin 2.4 g/dL (3.9-5) L 04/20/22 05:30 Albumin/Globulin Ratio 0.6 % 04/20/22 05:30 TSH 1.700 mlU/mL (0.270-4.200) 04/19/22 04:53 Free T4 0.28 ng/dL (0.76-1.46) L 04/19/22 04:53 Hepatitis A IgM Ab Non-reactive (NonReactive) 04/19/22 04:53 Hep Bs Antigen Non-reactive (Negative) 04/19/22 04:53 Hep B Core IgM Ab Non-reactive (NonReactive) 04/19/22 04:53 Hepatitis C Antibody Non-reactive (NonReactive) 04/19/22 04:53 Blood Type A POSITIVE 04/25/22 15:30 Antibody Screen Negative 04/25/22 15:30 Crossmatch See Detail 04/25/22 15:30 Cleary/IV: Voiding Method External Female Catheter Active Medications - Current Medications Current Medications: Generic Name Dose Route Start Last Admin Trade Name Freq PRN Reason Stop Dose Admin Acetaminophen 650 mg 04/22/22 20:12 04/24/22 17:55 Acetaminophen 325 Mg/10.15 Ml Oral Liqd Unit Dose PO 650 mg Q6H PRN Administration Pain MILD(1-3)/Fever >100.5/DRAKE Albumin Human 25 gm 04/21/22 13:00 04/22/22 16:31 Albumin Human 25% (25 Gm/100 Ml) Inj IV 25 gm BIANCA PRN Administration Hypotension Albuterol 2.5 mg 04/21/22 08:30 04/24/22 16:51 Albuterol 2.5 Mg/3 Ml Nebu IH 2.5 mg Q3HRT PRN Administration Shortness Of Breath Albuterol/Ipratropium 1 ampul 04/21/22 14:00 04/27/22 09:35 Ipratropium/Albuterol Sulfate 3 Ml Ampul.Neb IH 1 ampul TIDRT CONNOR Administration Clopidogrel Bisulfate 75 mg 04/23/22 10:00 04/27/22 09:41 Clopidogrel 75 Mg Tab FEEDTUBE 75 mg QDAY CONNOR Administration Epoetin Lb-epbx 20,000 unit 04/23/22 12:00 04/25/22 20:00 Epoetin Lb-Epbx 20,000 Unit/1 Ml Vial IV 20,000 unit BIANCA PRN Administration HEMODIALYSIS NORepinephrine/NS 8 MG-250 ML 8 mg in 250 mls @ 3.75 mls/hr 04/19/22 09:00 04/24/22 12:45 Norepinephrine/Ns 8 Mg-250 Ml (Double Conc) IV 0 mcg/min TITRATE CONNOR 0 mls/hr Titration Protocol 2 MCG/MIN Sodium Chloride 100 mls @ 999 mls/hr 04/22/22 09:12 Nacl 0.9% IV BIANCA PRN Hypotension Phenylephrine HCl 100 mg/ 100 mls @ 3 mls/hr 04/27/22 14:00 Sodium Chloride IV TITR CONNOR Protocol 50 MCG/MIN Lansoprazole 30 mg 04/23/22 10:00 04/27/22 09:41 Lansoprazole 30 Mg Solutab FEEDTUBE 30 mg QDAY CONNOR Administration Lorazepam 0.5 mg 04/25/22 09:59 Lorazepam 0.5 Mg Tab FEEDTUBE QDAY PRN Anxiety Memantine 5 mg 04/25/22 10:00 04/27/22 09:40 Memantine 5 Mg Tab FEEDTUBE 5 mg BID CONNOR Administration Metoclopramide HCl 5 mg 04/19/22 09:55 Metoclopramide 10 Mg/2 Ml Inj IV Q6H PRN Nausea And Vomiting Midodrine 20 mg 04/26/22 14:00 04/27/22 13:17 Midodrine 10 Mg Tab FEEDTUBE 20 mg TID CONNOR Administration Naloxone HCl 0.1 mg 04/19/22 09:55 Naloxone 0.4 Mg/1 Ml Inj IV Q2MIN PRN Res Rate </= 8 or 02 SAT < 92% Quetiapine Fumarate 200 mg 04/25/22 22:00 04/26/22 21:03 Quetiapine 200 Mg Tab FEEDTUBE 200 mg QHS CONNOR Administration Quetiapine Fumarate 100 mg 04/26/22 10:00 04/27/22 09:41 Quetiapine 100 Mg Tab FEEDTUBE 100 mg QAM CONNOR Administration Risperidone 0.5 mg 04/25/22 11:00 04/27/22 09:41 Risperidone 1 Mg Tab FEEDTUBE 0.5 mg BID CONNOR Administration Senna 17.2 mg 04/23/22 10:00 04/27/22 09:50 Sennosides 8.6 Mg Tab FEEDTUBE 17.2 mg BID CONNOR Administration Sodium Chloride 10 ml 04/19/22 12:00 04/27/22 09:48 Sodium Chloride 0.9% 10 Ml Flush Syringe IV 10 ml BID CONNOR Administration Sodium Chloride 10 ml 04/19/22 11:19 Sodium Chloride 0.9% 10 Ml Flush Syringe IV PRN PRN LINE FLUSH Valproic Acid 750 mg 04/22/22 22:00 04/27/22 09:41 Valproic Acid 250 Mg/5 Ml Oral Liqd FEEDTUBE 750 mg BID CONNOR Administration Nutrition/Malnutrition Assess - Dietary Evaluation Nutrition/Malnutrition Findings: Nutrition Notes Start: 04/19/22 17:39 Freq: Status: Active Protocol: Document 04/24/22 14:13 MIRIAN (Rec: 04/24/22 14:54 MIRIAN [id number]) Nutrition Notes Initial or Follow up Reassessment Current Diagnosis CKD (stage V CKD),Hypertension ,Malnutrition Other Pertinent Diagnosis Metabolic Encephalopathy, ESRD +HD, Anemia, NSTEMI II, Hypotension, SIRS,... Current Diet Nepro w/CARBSTEADY @ 30 ml/hr (since D 04/22). Labs/Tests 04/24: Na 134, BUN 42, Crea 3. 9, Glu 141. Pertinent Medications 04/24: Renvela, others nutritionally unremarkable. 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 No body weight change reported in 5 days. Weight Status Appropriate Subjective/Other Information RD consult for TF tolerance/ continuation assessment. TF continues as prescribed, No further information available at the time. TRAVELING CONSTRUCTION SUPERINTENDENT notes on 04/21/22 13:28: Swallowing function has been assessed. Patient holds the bolus in the oral cavity for an extended period of time prior to initiating a swallow. This is attributed to her diminished mental acuity. Recommend a pureed diet with thins. However, intake must be monitored closely to ensure she eats a sufficient amount to maintain adequate nutritional support. Will continue to follow to determine if the diet may be upgraded pending her mental status. - END OF NOTE. Pt is on Room Air, O2 saturation @ 95%, according to Physical Assessment History notes. Percent of energy/protein needs met: Prescribed Nepro w/CARBSTEADY @ 30 ml/hr provides for energy /protein needs (1,269 Kcal/58 g) during LOS, 102% Kcal; 89% AA. GI Symptoms None Food Allergy Yes Skin Integrity/Comment Healing Sacral wound, intact. 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 Patient holds the bolus in the oral cavity for an extended period of time prior to initiating a swallow. This is attributed to her diminished mental acuity. Recommend a pureed diet with thins. However, intake must be monitored closely to ensure she eats a sufficient amount to maintain adequate nutritional support. Will continue to follow to determine if the diet may be upgraded pending her mental status. - END OF NOTE. Diagnosis Progress(for reassessment Continues documentation) Is patient on ventilator? No Is Patient Ambulatory and/or Out of Bed No [facility] [phone] Calculation Used for Recommendations [facility] Additional Notes Protein: >1.2 g/Kg ABW; >65 g/ day. Fluids: 1-1.5 L/day, or as per MD. Nutrition Intervention Nutrition Support: Continue Nepro w/CARBSTEADY @ 30 ml/hr. Flush: 130 ml water Q 4 hr, or as per MD. Kcal 1,269 Protein (gm) 58 Carbohydrates (gm) 116 Fat (gm) 58 Fluid (mL) 523 Fiber (gm) 9 % RDI: 102% Kcal; 89% AA. Goal #1 Provide at least 75% of energy /protein needs through Enteral Feeding during LOS. Follow-Up By: 05/01/22 Additional Comments Continue monitoring TF tolerance, vasopressors, and BM. <AMAURY KIM - Last Filed: 05/08/22 11:38> History Interval history: I saw and evaluated the patient. I agree with the findings and the plan of care as documented in the Nurse Practitioner's~note, with the following corrections and additions. Hospitalist Physical - Constitutional Vitals: Temp Pulse Resp BP Pulse Ox 97.8 F 104 H 12 114/44 99 05/08/22 07:16 05/08/22 11:15 05/08/22 11:15 05/08/22 11:15 05/08/22 11:15 HEART Score - HEART Score Troponin: Troponin T 0.415 ng/mL (0.00-0.029) H* 04/19/22 04:53 Results - Labs CBC & Chem 7: 05/08/22 04:06 05/08/22 04:06 Labs: Laboratory Last Values WBC 6.6 K/mm3 (4.5-11.0) 05/08/22 04:06 RBC 2.87 M/mm3 (3.65-5.03) L 05/08/22 04:06 Hgb 8.2 gm/dl (10.1-14.3) L 05/08/22 04:06 Hct 25.8 % (30.3-42.9) L 05/08/22 04:06 MCV 90 fl (79-97) 05/08/22 04:06 MCH 29 pg (28-32) 05/08/22 04:06 MCHC 32 % (30-34) 05/08/22 04:06 RDW 16.2 % (13.2-15.2) H 05/08/22 04:06 Plt Count 118 K/mm3 (140-440) L 05/08/22 04:06 Lymph % (Auto) 26.7 % (13.4-35.0) 04/20/22 05:30 Imperial % (Auto) 15.2 % (0.0-7.3) H 04/20/22 05:30 Eos % (Auto) 3.8 % (0.0-4.3) 04/20/22 05:30 Baso % (Auto) 1.2 % (0.0-1.8) 04/20/22 05:30 Lymph # (Auto) 1.1 K/mm3 (1.2-5.4) L 04/20/22 05:30 Imperial # (Auto) 0.6 K/mm3 (0.0-0.8) 04/20/22 05:30 Eos # (Auto) 0.2 K/mm3 (0.0-0.4) 04/20/22 05:30 Baso # (Auto) 0.0 K/mm3 (0.0-0.1) 04/20/22 05:30 Add Manual Diff Complete 05/05/22 04:20 Total Counted 100 05/05/22 04:20 Seg Neutrophils % 53.1 % (40.0-70.0) 04/20/22 05:30 Seg Neuts % (Manual) 86.0 % (40.0-70.0) H 05/05/22 04:20 Band Neutrophils % 3.0 % 05/05/22 04:20 Lymphocytes % (Manual) 4.0 % (13.4-35.0) L 05/05/22 04:20 Reactive Lymphs % (Man) 0 % 05/05/22 04:20 Monocytes % (Manual) 6.0 % (0.0-7.3) 05/05/22 04:20 Eosinophils % (Manual) 1.0 % (0.0-4.3) 05/05/22 04:20 Basophils % (Manual) 0 % (0.0-1.8) 05/05/22 04:20 Metamyelocytes % 0 % 05/05/22 04:20 Myelocytes % 0 % 05/05/22 04:20 Promyelocytes % 0 % 05/05/22 04:20 Blast Cells % 0 % 05/05/22 04:20 Nucleated RBC % 1.0 % (0.0-0.9) H 05/05/22 04:20 Seg Neutrophils # 2.2 K/mm3 (1.8-7.7) 04/20/22 05:30 Seg Neutrophils # Man 11.0 K/mm3 (1.8-7.7) H 05/05/22 04:20 Band Neutrophils # 0.4 K/mm3 05/05/22 04:20 Lymphocytes # (Manual) 0.5 K/mm3 (1.2-5.4) L 05/05/22 04:20 Abs React Lymphs (Man) 0.0 K/mm3 05/05/22 04:20 Monocytes # (Manual) 0.8 K/mm3 (0.0-0.8) 05/05/22 04:20 Eosinophils # (Manual) 0.1 K/mm3 (0.0-0.4) 05/05/22 04:20 Basophils # (Manual) 0.0 K/mm3 (0.0-0.1) 05/05/22 04:20 Metamyelocytes # 0.0 K/mm3 05/05/22 04:20 Myelocytes # 0.0 K/mm3 05/05/22 04:20 Promyelocytes # 0.0 K/mm3 05/05/22 04:20 Blast Cells # 0.0 K/mm3 05/05/22 04:20 WBC Morphology Not Reportable 05/05/22 04:20 Hypersegmented Neuts Not Reportable 05/05/22 04:20 Hyposegmented Neuts Not Reportable 05/05/22 04:20 Hypogranular Neuts Not Reportable 05/05/22 04:20 Smudge Cells Not Reportable 05/05/22 04:20 Toxic Granulation Not Reportable 05/05/22 04:20 Toxic Vacuolation Not Reportable 05/05/22 04:20 Dohle Bodies Not Reportable 05/05/22 04:20 Pelger-Huet Anomaly Not Reportable 05/05/22 04:20 Ubaldo Rods Not Reportable 05/05/22 04:20 Platelet Estimate Consistent w auto 05/05/22 04:20 Clumped Platelets Not Reportable 05/05/22 04:20 Plt Clumps, EDTA Not Reportable 05/05/22 04:20 Large Platelets Not Reportable 05/05/22 04:20 Giant Platelets Not Reportable 05/05/22 04:20 Platelet Satelliting Not Reportable 05/05/22 04:20 Plt Morphology Comment Not Reportable 05/05/22 04:20 RBC Morphology Not Reportable 05/05/22 04:20 Dimorphic RBCs Not Reportable 05/05/22 04:20 Polychromasia Not Reportable 05/05/22 04:20 Hypochromasia 2+ 05/05/22 04:20 Poikilocytosis Not Reportable 05/05/22 04:20 Anisocytosis 1+ 05/05/22 04:20 Microcytosis Not Reportable 05/05/22 04:20 Macrocytosis Not Reportable 05/05/22 04:20 Spherocytes Not Reportable 05/05/22 04:20 Pappenheimer Bodies Not Reportable 05/05/22 04:20 Sickle Cells Not Reportable 05/05/22 04:20 Target Cells Not Reportable 05/05/22 04:20 Tear Drop Cells Not Reportable 05/05/22 04:20 Ovalocytes Not Reportable 05/05/22 04:20 Helmet Cells Not Reportable 05/05/22 04:20 Rangel[place] Bodies Not Reportable 05/05/22 04:20 [place] Rings Not Reportable 05/05/22 04:20 Stacey Cells Not Reportable 05/05/22 04:20 Bite Cells Not Reportable 05/05/22 04:20 Crenated Cell Not Reportable 05/05/22 04:20 Elliptocytes Not Reportable 05/05/22 04:20 Acanthocytes (Spur) Not Reportable 05/05/22 04:20 Rouleaux Not Reportable 05/05/22 04:20 Hemoglobin C Crystals Not Reportable 05/05/22 04:20 Schistocytes Not Reportable 05/05/22 04:20 Malaria parasites Not Reportable 05/05/22 04:20 Torrey Bodies Not Reportable 05/05/22 04:20 Hem Pathologist Commnt No 05/05/22 04:20 PT 17.6 Sec. (12.2-14.9) H 05/04/22 04:26 INR 1.29 (0.87-1.13) H 05/04/22 04:26 APTT 39.4 Sec. (24.2-36.6) H 05/03/22 04:24 Heparin Anti-Xa Level < 0.10 U.I./ml (0.3-0.7) L 04/24/22 10:20 ABG pH 7.482 pH Units (7.350-7.450) H 05/08/22 04:40 ABG pCO2 35.2 mm Hg 05/08/22 04:40 ABG pO2 103.9 mm Hg (80.0-90.0) H 05/08/22 04:40 ABG HCO3 25.8 mmol/L (20.0-26.0) 05/08/22 04:40 ABG O2 Saturation 98.0 % (95.0-99.0) 05/08/22 04:40 ABG O2 Content 11.1 (0.0-44) 05/08/22 04:40 ABG Base Excess 2.3 mmol/L (-2.0-3.0) 05/08/22 04:40 ABG Hemoglobin 8.1 gm/dl (12.0-16.0) L 05/08/22 04:40 ABG Carboxyhemoglobin 1.8 % (0.0-5.0) 05/08/22 04:40 ABG Methemoglobin 0.2 % (0.0-1.5) 05/08/22 04:40 Oxyhemoglobin 96.0 % (95.0-99.0) 05/08/22 04:40 FiO2 30 % 05/08/22 04:40 Sodium 132 mmol/L (137-145) L 05/08/22 04:06 Potassium 3.3 mmol/L (3.6-5.0) L 05/08/22 04:06 Chloride 93.2 mmol/L (98-107) L 05/08/22 04:06 Carbon Dioxide 28 mmol/L (22-30) 05/08/22 04:06 Anion Gap 14 mmol/L 05/08/22 04:06 BUN 36 mg/dL (7-17) H 05/08/22 04:06 Creatinine 2.9 mg/dL (0.6-1.2) H 05/08/22 04:06 Estimated GFR 20 ml/min 05/08/22 04:06 BUN/Creatinine Ratio 12 % 05/08/22 04:06 Glucose 145 mg/dL (65-100) H 05/08/22 04:06 POC Glucose 123 mg/dL (70-105) H 05/07/22 23:23 Lactic Acid 1.60 mmol/L (0.7-2.0) 04/19/22 07:14 Calcium 8.9 mg/dL (8.4-10.2) 05/08/22 04:06 Phosphorus 2.00 mg/dL (2.5-4.5) L D 05/08/22 04:06 Magnesium 1.80 mg/dL (1.7-2.3) 05/08/22 04:06 Total Bilirubin 0.30 mg/dL (0.1-1.2) 04/20/22 05:30 AST 11 units/L (5-40) 04/20/22 05:30 ALT 7 units/L (7-56) 04/20/22 05:30 Alkaline Phosphatase 101 units/L (35-129) 04/20/22 05:30 Ammonia 25.0 umol/L (25-60) 04/19/22 04:53 Troponin T 0.415 ng/mL (0.00-0.029) H* 04/19/22 04:53 Total Protein 6.4 g/dL (6.3-8.2) 04/20/22 05:30 Albumin 2.4 g/dL (3.9-5) L 04/20/22 05:30 Albumin/Globulin Ratio 0.6 % 04/20/22 05:30 Procalcitonin 42.42 ng/mL (<0.15) 05/05/22 04:20 TSH 1.700 mlU/mL (0.270-4.200) 04/19/22 04:53 Free T4 0.28 ng/dL (0.76-1.46) L 04/19/22 04:53 Total Cortisol 24.4 mcg/dL () 04/27/22 04:45 Random Vancomycin 9.6 ug/mL (0-40.0) 05/07/22 04:15 Coronavirus (PCR) Negative (Negative) 05/03/22 11:30 Hepatitis A IgM Ab Non-reactive (NonReactive) 04/19/22 04:53 Hep Bs Antigen Non-reactive (Negative) 04/19/22 04:53 Hep B Core IgM Ab Non-reactive (NonReactive) 04/19/22 04:53 Hepatitis C Antibody Non-reactive (NonReactive) 04/19/22 04:53 Blood Type A POSITIVE 05/04/22 05:30 Antibody Screen Negative 05/04/22 05:30 Crossmatch See Detail 05/04/22 05:30 Microbiology: Microbiology 05/04/22 16:30 Peripheral/Venous Blood Culture - Preliminary NO GROWTH AFTER 72 HOURS 05/03/22 10:30 Bronchial Washings - Right Lower Lobe Respiratory Culture - Final Methicillin Resist S. Aureus 05/04/22 16:30 Peripheral/Venous Blood Culture - Preliminary Coag Negative Staphylococcus Cleary/IV: Voiding Method Incontinent Active Medications - Current Medications Current Medications: Generic Name Dose Route Start Last Admin Trade Name Freq PRN Reason Stop Dose Admin Acetaminophen 650 mg 04/22/22 20:12 05/03/22 23:41 Acetaminophen 325 Mg/10.15 Ml Oral Liqd Unit Dose PO 650 mg Q6H PRN Administration Pain MILD(1-3)/Fever >100.5/DRAKE Acetylcysteine 200 mg 05/05/22 14:00 05/08/22 09:15 Acetylcysteine 20% 200 Mg/1 Ml *For Inhalation Use* INHALATION 05/10/22 13:59 200 mg TID CONNOR Administration Albumin Human 25 gm 04/21/22 13:00 04/22/22 16:31 Albumin Human 25% (25 Gm/100 Ml) Inj IV 25 gm BIANCA PRN Administration Hypotension Albuterol 2.5 mg 04/21/22 08:30 04/24/22 16:51 Albuterol 2.5 Mg/3 Ml Nebu IH 2.5 mg Q3HRT PRN Administration Shortness Of Breath Albuterol/Ipratropium 1 ampul 04/21/22 14:00 05/08/22 09:15 Ipratropium/Albuterol Sulfate 3 Ml Ampul.Neb IH 1 ampul TIDRT CONNOR Administration Docusate Sodium 100 mg 05/01/22 22:00 05/08/22 11:27 Docusate Sodium 100 Mg/10 Ml Oral Liqd FEEDTUBE Not Given BID CONNOR Epoetin Lb-epbx 20,000 unit 04/23/22 12:00 05/06/22 19:23 Epoetin Lb-Epbx 20,000 Unit/1 Ml Vial IV 20,000 unit BIANCA PRN Administration HEMODIALYSIS Fentanyl 50 mcg 05/03/22 10:29 05/05/22 12:23 Fentanyl 100 Mcg/2 Ml Inj IV 25 mcg Q10MIN PRN Administration ANALGESIA Sodium Chloride 100 mls @ 999 mls/hr 04/22/22 09:12 Nacl 0.9% IV BIANCA PRN Hypotension Fentanyl Citrate 2,000 mcg in 100 mls @ 2.722 mls/hr 05/03/22 11:00 Fentanyl Drip Premix IV TITR CONNOR Protocol 1 MCG/KG/HR NORepinephrine/NS 8 MG-250 ML 8 mg in 250 mls @ 3.75 mls/hr 05/03/22 13:15 05/06/22 10:06 Norepinephrine/Ns 8 Mg-250 Ml (Double Conc) IV 0 mcg/min TITRATE CONNOR 0 mls/hr Titration Protocol 2 MCG/MIN Vasopressin 20 unit/ Sodium 101 mls @ 9.09 mls/hr 05/04/22 00:30 05/06/22 11:21 Chloride IV 0 units/min TITR CONNOR 0 mls/hr Infusion 0.03 UNITS/MIN Cefepime HCl 1 gm in 100 mls @ 200 mls/hr 05/04/22 18:00 05/07/22 17:11 Cefepime/Ns 1 Gm/100 Ml IV 200 mls/hr QPM CONNOR Administration Protocol Lansoprazole 30 mg 04/23/22 10:00 05/08/22 10:59 Lansoprazole 30 Mg Solutab FEEDTUBE 30 mg QDAY CONNOR Administration Lorazepam 0.5 mg 04/25/22 09:59 Lorazepam 0.5 Mg Tab FEEDTUBE QDAY PRN Anxiety Memantine 5 mg 04/25/22 10:00 05/08/22 10:57 Memantine 5 Mg Tab FEEDTUBE 5 mg BID CONNOR Administration Metoclopramide HCl 5 mg 04/19/22 09:55 Metoclopramide 10 Mg/2 Ml Inj IV Q6H PRN Nausea And Vomiting Midodrine 20 mg 04/26/22 14:00 05/08/22 10:59 Midodrine 10 Mg Tab FEEDTUBE 20 mg TID CONNOR Administration Naloxone HCl 0.1 mg 04/19/22 09:55 Naloxone 0.4 Mg/1 Ml Inj IV Q2MIN PRN Res Rate </= 8 or 02 SAT < 92% Polyethylene Glycol 17 gm 05/03/22 10:00 05/08/22 11:27 Polyethylene Glycol 3350 17 Gm Powder FEEDTUBE Not Given QDAY CONNOR Risperidone 0.5 mg 04/25/22 11:00 05/08/22 11:00 Risperidone 1 Mg Tab FEEDTUBE 0.5 mg BID CONNOR Administration Scopolamine 1 each 05/02/22 10:00 05/08/22 11:01 Scopolamine Transdermal Patch 72 Hr TD 1 each Q3D CONNOR Administration Senna 17.2 mg 04/23/22 10:00 05/08/22 11:27 Sennosides 8.6 Mg Tab FEEDTUBE Not Given BID CONNOR Sodium Chloride 10 ml 04/19/22 12:00 05/08/22 11:00 Sodium Chloride 0.9% 10 Ml Flush Syringe IV 10 ml BID CONNOR Administration Sodium Chloride 10 ml 04/19/22 11:19 Sodium Chloride 0.9% 10 Ml Flush Syringe IV PRN PRN LINE FLUSH Sodium Phosphate 250 mg 05/08/22 10:00 05/08/22 10:57 K-Phos Neutral 250 Mg Tab FEEDTUBE 05/09/22 09:59 250 mg QID CONNOR Administration Valproic Acid 750 mg 04/22/22 22:00 05/08/22 10:59 Valproic Acid 250 Mg/5 Ml Oral Liqd FEEDTUBE 750 mg BID CONNOR Administration Nutrition/Malnutrition Assess - Dietary Evaluation Nutrition/Malnutrition Findings: Nutrition Notes Start: 04/19/22 17:39 Freq: Status: Active Protocol: Document 05/05/22 14:44 SHILA (Rec: 05/05/22 14:55 SHILA [id number]) Nutrition Notes Initial or Follow up Reassessment Current Diagnosis CKD (stage V CKD),Sepsis, Respiratory Failure Other Pertinent Diagnosis Neurogenic dysphagia, metabolic encephalopathy, vascular dementia Current Diet No diet order in chart Labs/Tests Na 130 K 3.3 BUN 24 Cr 2.3 BG 163 Phos 1.5 Pertinent Medications Colace, Senokot, Miralax, Levophed gtt, Vasopressin gtt Height 5 ft 2 in Weight 54.43 kg [place] Body Weight (kg) 50.00 BMI 21.9 Weight Status Appropriate Subjective/Other Information PEG placed yesterday. Pt remains on vent and HD support . Observed Nepro infusing at 30ml/hr. No BM documented today. Bronchoscopy performed today. Percent of energy/protein needs met: 104% energy 90% pro Burn Absent Trauma Absent #1 Nutrition Diagnosis Inadequate oral intake, Swallowing difficulty Diagnosis Progress(for reassessment Continues documentation) Is patient on ventilator? Yes Is Patient Ambulatory and/or Out of Bed No REE-([facility] Jeor-confined to bed) [phone] Calculation Used for Recommendations [facility] Additional Notes Pro needs >1.2g/kg: >65g/day Fluid needs 1-1.5L/day Nutrition Intervention Nutrition Support: Continue Nepro at 30ml/hr with 130ml water flush q4h. Kcal 1,296 Protein (gm) 58 Carbohydrates (gm) 116 Fat (gm) 69 Fluid (mL) 523 Fiber (gm) 9 Goal #1 TF tolerance Goal #2 TF to meet at least 75% energy and pro needs Follow-Up By: 05/12/22 Additional Comments F/U: stable TF, vent status, wt, BM
--- NOTE | 2022-04-27 15:13 | XRay Report ---
CHEST 1 VIEW INDICATION: r/o pneumothorax. COMPARISON: 5 days prior FINDINGS: Support devices: Esophagogastric tube extends below the diaphragm, below the edge of the image. Heart: Stable. Lungs/Pleura: Pleural effusions and pulmonary opacities persist. No pneumothorax. IMPRESSION: 1. No significant change. Signer Name: Steve Alfaro MD Signed: 04/27/2022 3:08 PM Workstation Name: [email or web address]
--- NOTE | 2022-04-27 15:58 | Event Note ---
Date: 04/27/22 Spoke with TRAFFIC LIEUTENANT, as I am not following this patient, in regards to need for IV access. Right IJ was attempted but unsuccessful. Used US to look at left IJ, sluggish blood flow but visible and appeared to be a reasonable target. Unfortunately, after multiple attempts, unable to thread the wire so aborted. Given the current low blood pressure and critical state of patient, elected to place line in right femoral vein, once again using ultrasound guidance and seldinger technique, successful placement of triple lumen catheter with good return of blood from all three ports as well as easy flushing. Sutured in and biopatch placed. Given multiple sticks from the neck, ordered CXR of chest, no PTX seen on either side.
[2022-04-27] MEDS ORDERED: PHYTONADIONE 10 MG/1 ML (ADULT ONLY)*INJECTION SUB-Q ONE (17:49)
[2022-04-27] MEDS: QUEtiapine 200 MG TAB FEEDTUBE SCH (21:50)
[2022-04-28] MEDS: NORepinephrine/NS 8 MG-250 ML 8 MG/250 ML INFUS..BTL IV SCH ×3 (00:16→19:37)
[2022-04-28] MEDS: IPRATROPIUM/ALBUTEROL SULFATE 3 ML AMPUL.NEB IH SCH ×3 (07:41→20:24)
[2022-04-28] MEDS ORDERED: SODIUM CHLORIDE 0.9% 500 ML 500 ML IV SCH (08:00)
[2022-04-28] MEDS: MIDODRINE 10 MG TAB FEEDTUBE SCH ×3 (08:28→23:08)
--- NOTE | 2022-04-28 09:53 | Progress Note ---
Assessment and Plan This is a 66-year-old female with HTN, GERD, seizure disorder, vascular dementia, ESRD on HD, chronic hypertension, bipolar, schizophrenia, anxiety admitted with acute hypoxic respiratory failure, acute on chronic hypotension, acute on chronic metabolic encephalopathy and SVT Acute on Chronic Hypotension Acute on Chronic Metabolic Encephalopathy SVT Elevated troponin, possibly demand ischemia Bipolar disorder/Schizophrenia, Hyperkalemia ESRD on hemodialysis, Anemia of chronic disease Get RUExt USS r/o DVT- for today Get cortisol level to r/o adrenal insufficiency- pending results Start Fludrocortisone Titrate Norepinephrine to keep MAP>60 -Titrate supplemental oxygen to keep SpO2 90-92% -Supportive HD per Renal service -Monitor temperature curve and WCC trend -Supportive HD - avoid nephrotoxins, dose all medications for GFR/CrCL - avoid benzodiazepines, reduce the possibility of delirium -Maintain sleep-wake cycle -Mobility, off loading, frequent turning per facility protocol to prevent pressu re ulcers -prn analgesia per pain score - VTE prophylaxis - Monitor hemodynamics closely -Nutrition support- SBFT in nares, patient is to get PEG placement -Supportive transfusions as clinically indicated t keep HgB >7g/dL CONDITION: CRITICAL PROGNOSIS: GUARDED CODE STATUS: FULL CODE The high probability of a clinically significant, sudden or life threatening deterioration of the multiple systems required my full and direct attention, intervention and personal management. The aggregate critical care time was [35] minutes. This time is in addition to time spent performing reported procedures but includes the following: [X] Data Review and interpretation [X] Patient assessment and monitoring of vital signs [X] Documentation [X] Medication orders and management Subjective Date of service: 04/28/22 Principal diagnosis: AHRF; Shock; AMS; SVT; NSTEMI; ESRD; Protein calorie malnutrition Interval history: Seen and examined at bedside; 24hour events reviewed; nursing and respiratory care staff consulted; no adverse overnight events reported to me; resting in bed;on Levophed at 14mcg, scheduled fro PEG placement today. RUExt US pending. Right femoral CVL for vasopressor support. Denies chest pains or increased SOB; no N/V/F/C On supplemental oxygen at 2L Objective Vital Signs - 12hr 04/27/22 04/27/22 04/27/22 22:00 22:30 23:00 Temperature Pulse Rate 120 H 129 H 123 H Pulse Rate [ Anterior Bilateral Throughout] Pulse Rate [ From Monitor] Respiratory 24 17 17 Rate Respiratory Rate [Anterior Bilateral Throughout] Blood Pressure 106/58 87/57 105/55 O2 Sat by Pulse 97 95 98 Oximetry 04/27/22 04/28/22 04/28/22 23:30 00:00 00:30 Temperature 97.6 F Pulse Rate 119 H 109 H 113 H Pulse Rate [ Anterior Bilateral Throughout] Pulse Rate [ 111 H From Monitor] Respiratory 23 25 H 27 H Rate Respiratory Rate [Anterior Bilateral Throughout] Blood Pressure 115/56 112/54 122/65 O2 Sat by Pulse 99 100 98 Oximetry 04/28/22 04/28/22 04/28/22 01:00 01:30 02:00 Temperature Pulse Rate 111 H 100 H 97 H Pulse Rate [ Anterior Bilateral Throughout] Pulse Rate [ From Monitor] Respiratory 24 24 24 Rate Respiratory Rate [Anterior Bilateral Throughout] Blood Pressure 102/66 112/56 105/54 O2 Sat by Pulse 99 100 100 Oximetry 04/28/22 04/28/22 04/28/22 02:31 03:00 03:30 Temperature Pulse Rate 96 H 94 H 93 H Pulse Rate [ Anterior Bilateral Throughout] Pulse Rate [ From Monitor] Respiratory 22 23 22 Rate Respiratory Rate [Anterior Bilateral Throughout] Blood Pressure 98/57 100/51 114/54 O2 Sat by Pulse 100 100 100 Oximetry 04/28/22 04/28/22 04/28/22 04:00 04:30 05:00 Temperature 98.8 F Pulse Rate 90 92 H 93 H Pulse Rate [ Anterior Bilateral Throughout] Pulse Rate [ 98 H From Monitor] Respiratory 21 25 H 21 Rate Respiratory Rate [Anterior Bilateral Throughout] Blood Pressure 103/53 109/55 99/51 O2 Sat by Pulse 100 100 100 Oximetry 04/28/22 04/28/22 04/28/22 05:30 06:00 06:31 Temperature Pulse Rate 100 H 98 H 102 H Pulse Rate [ Anterior Bilateral Throughout] Pulse Rate [ From Monitor] Respiratory 20 26 H 14 Rate Respiratory Rate [Anterior Bilateral Throughout] Blood Pressure 94/57 116/61 115/64 O2 Sat by Pulse 100 99 97 Oximetry 04/28/22 04/28/22 04/28/22 07:00 07:30 07:41 Temperature Pulse Rate 96 H 102 H Pulse Rate [ 101 H Anterior Bilateral Throughout] Pulse Rate [ From Monitor] Respiratory 17 22 Rate Respiratory 18 Rate [Anterior Bilateral Throughout] Blood Pressure 106/53 110/67 O2 Sat by Pulse 100 100 100 Oximetry 04/28/22 04/28/22 04/28/22 08:00 08:31 09:00 Temperature 97.9 F Pulse Rate 99 H 97 H 111 H Pulse Rate [ Anterior Bilateral Throughout] Pulse Rate [ 98 H From Monitor] Respiratory 21 21 25 H Rate Respiratory Rate [Anterior Bilateral Throughout] Blood Pressure 92/56 96/52 115/65 O2 Sat by Pulse 100 100 95 Oximetry Constitutional: no acute distress, other (mumbling on and off) Eyes: non-icteric ENT: oropharynx moist, other (Small bowel feeding tube in nares) Neck: supple, no lymphadenopathy, no JVD Effort: normal Ascultation: Bilateral: clear, diminished breath sounds, rhonchi Percussion: Bilateral: not dull Cardiovascular: regular rate and rhythm, other (S1,S2) Gastrointestinal: normoactive bowel sounds, soft, non-tender, non-distended Integumentary: normal Extremities: no cyanosis, pulses normal, no ischemia or petechiae, edema (RUExt edema), other (Right femoral CVL) Neurologic: non-focal exam (grossly), pupils equal and round, CN II-XII normal, motor strength normal and Psychiatric: mood appropriate, affect normal CBC and BMP: 04/27/22 04:45 04/27/22 04:45 ABG, PT/INR, D-dimer: PT/INR, D-dimer PT 17.9 Sec. (12.2-14.9) H 04/19/22 19:40 INR 1.28 (0.87-1.13) H 04/19/22 19:40 Abnormal lab findings: Abnormal Labs 04/19/22 04/19/22 04/19/22 04:53 04:53 04:53 WBC RBC 3.06 L Hgb 8.6 L Hct 28.0 L RDW 16.3 H [place] % (Auto) 11.3 H Lymph # (Auto) PT INR APTT Heparin Anti-Xa Level Sodium Potassium 5.1 H Chloride Carbon Dioxide 21 L BUN 94 H Creatinine 6.3 H Glucose POC Glucose Phosphorus Magnesium Troponin T 0.415 H* Albumin 2.7 L Free T4 0.28 L Crossmatch 04/19/22 04/19/22 04/20/22 19:40 19:40 05:30 WBC 4.1 L RBC 2.97 L Hgb 8.5 L 8.2 L Hct 27.8 L 27.1 L RDW 17.0 H [place] % (Auto) 15.2 H Lymph # (Auto) 1.1 L PT 17.9 H INR 1.28 H APTT 199.1 H* Heparin Anti-Xa Level Sodium Potassium Chloride Carbon Dioxide BUN Creatinine Glucose POC Glucose Phosphorus Magnesium Troponin T Albumin Free T4 Crossmatch 04/20/22 04/20/22 04/21/22 05:30 18:23 00:29 WBC RBC Hgb Hct RDW [place] % (Auto) Lymph # (Auto) PT INR APTT Heparin Anti-Xa Level 0.17 L Sodium Potassium Chloride Carbon Dioxide 21 L BUN 95 H Creatinine 6.6 H Glucose 139 H POC Glucose Phosphorus Magnesium 2.60 H Troponin T Albumin 2.4 L Free T4 Crossmatch 04/21/22 04/21/22 04/22/22 04:00 04:00 03:45 WBC RBC 2.74 L Hgb 7.7 L Hct 24.7 L RDW 16.6 H [place] % (Auto) Lymph # (Auto) PT INR APTT Heparin Anti-Xa Level < 0.10 L Sodium 133 L Potassium Chloride Carbon Dioxide 20 L BUN 89 H Creatinine 6.6 H Glucose 131 H POC Glucose Phosphorus 6.40 H Magnesium 2.50 H Troponin T Albumin Free T4 Crossmatch 04/22/22 04/22/22 04/22/22 03:45 12:13 14:30 WBC RBC Hgb Hct RDW [place] % (Auto) Lymph # (Auto) PT INR APTT Heparin Anti-Xa Level 0.11 L 0.11 L Sodium 136 L Potassium Chloride Carbon Dioxide 18 L BUN 90 H Creatinine 6.3 H Glucose 121 H POC Glucose Phosphorus 6.50 H Magnesium Troponin T Albumin Free T4 Crossmatch 04/22/22 04/23/22 04/23/22 23:08 02:17 04:10 WBC RBC Hgb 7.3 L Hct 23.3 L RDW [place] % (Auto) Lymph # (Auto) PT INR APTT Heparin Anti-Xa Level 0.14 L Sodium Potassium Chloride Carbon Dioxide BUN Creatinine Glucose POC Glucose 153 H Phosphorus Magnesium Troponin T Albumin Free T4 Crossmatch 04/23/22 04/23/22 04/23/22 04:10 06:09 23:22 WBC RBC Hgb Hct RDW [place] % (Auto) Lymph # (Auto) PT INR APTT Heparin Anti-Xa Level Sodium Potassium Chloride Carbon Dioxide BUN 36 H Creatinine 3.4 H Glucose 131 H POC Glucose 141 H 114 H Phosphorus Magnesium Troponin T Albumin Free T4 Crossmatch 04/24/22 04/24/22 04/24/22 02:10 04:00 04:00 WBC RBC 2.48 L Hgb 7.1 L Hct 22.6 L RDW 16.9 H [place] % (Auto) Lymph # (Auto) PT INR APTT Heparin Anti-Xa Level 0.12 L Sodium 134 L Potassium Chloride Carbon Dioxide BUN 42 H Creatinine 3.9 H Glucose 141 H POC Glucose Phosphorus Magnesium Troponin T Albumin Free T4 Crossmatch 04/24/22 04/24/22 04/24/22 05:03 10:20 11:24 WBC RBC Hgb Hct RDW [place] % (Auto) Lymph # (Auto) PT INR APTT Heparin Anti-Xa Level < 0.10 L Sodium Potassium Chloride Carbon Dioxide BUN Creatinine Glucose POC Glucose 142 H 144 H Phosphorus Magnesium Troponin T Albumin Free T4 Crossmatch 04/25/22 04/25/22 04/25/22 00:15 04:11 04:11 WBC 4.4 L RBC 2.38 L Hgb 6.7 L Hct 21.7 L RDW 17.2 H [place] % (Auto) Lymph # (Auto) PT INR APTT Heparin Anti-Xa Level Sodium 134 L Potassium Chloride 97.1 L Carbon Dioxide BUN 47 H Creatinine 4.3 H Glucose 106 H POC Glucose 136 H Phosphorus Magnesium Troponin T Albumin Free T4 Crossmatch 04/25/22 04/25/22 04/25/22 06:01 15:30 22:44 WBC RBC Hgb 8.8 L Hct 28.1 L D RDW [place] % (Auto) Lymph # (Auto) PT INR APTT Heparin Anti-Xa Level Sodium Potassium Chloride Carbon Dioxide BUN Creatinine Glucose POC Glucose 137 H Phosphorus Magnesium Troponin T Albumin Free T4 Crossmatch See Detail 04/26/22 04/27/22 04/27/22 04:20 04:45 04:45 WBC RBC 2.81 L 3.13 L Hgb 8.0 L 9.0 L Hct 25.4 L 29.1 L RDW 16.2 H 17.4 H [place] % (Auto) Lymph # (Auto) PT INR APTT Heparin Anti-Xa Level Sodium 131 L Potassium Chloride 93.5 L Carbon Dioxide BUN 44 H Creatinine 3.9 H Glucose 135 H POC Glucose Phosphorus Magnesium Troponin T Albumin Free T4 Crossmatch 04/27/22 04/28/22 23:38 05:26 WBC RBC Hgb Hct RDW [place] % (Auto) Lymph # (Auto) PT INR APTT Heparin Anti-Xa Level Sodium Potassium Chloride Carbon Dioxide BUN Creatinine Glucose POC Glucose 229 H 169 H Phosphorus Magnesium Troponin T Albumin Free T4 Crossmatch Allied health notes reviewed: nursing
--- NOTE | 2022-04-28 10:26 | Vascular Lab Report ---
DUPLEX DOPPLER UPPER EXTREMITY VENOUS, RIGHT INDICATION / CLINICAL INFORMATION: swelling. TECHNIQUE: Duplex doppler imaging was performed through the veins of the right upper extremity using venous compression and other maneuvers. COMPARISON: None available. FINDINGS: RIGHT INTERNAL JUGULAR VEIN: Occluded. RIGHT SUBCLAVIAN VEIN: Negative. RIGHT AXILLARY VEIN: Negative. RIGHT BRACHIAL VEIN: Negative. RIGHT FOREARM VEINS: Negative. RIGHT BASILIC VEIN (SUPERFICIAL): Negative. ADDITIONAL FINDINGS: None. IMPRESSION: 1. Left IJ is occluded. The vein is attenuated/small suggesting this occlusion may be chronic. 2. Otherwise, no sonographic evidence of DVT within the right upper extremity. Signer Name: Steve Alfaro MD Signed: 04/28/2022 10:21 AM Workstation Name: [id number]
[2022-04-28] MEDS: LANSOPRAZOLE 30 MG SOLUTAB FEEDTUBE SCH (10:45)
[2022-04-28] MEDS: MEMANTINE 5 MG TAB FEEDTUBE SCH ×2 (10:45→23:07)
[2022-04-28] MEDS: QUEtiapine 100 MG TAB FEEDTUBE SCH (10:46)
[2022-04-28] MEDS: POLYETHYLENE GLYCOL 3350 17 GM POWDER PO SCH (10:46)
[2022-04-28] MEDS: SENNOSIDES 8.6 MG TAB FEEDTUBE SCH ×2 (10:46→23:08)
[2022-04-28] MEDS: risperiDONE 1 MG TAB FEEDTUBE SCH ×2 (10:46→23:07)
[2022-04-28] MEDS: FLUDROCORTISONE 0.1 MG TAB PO SCH (10:47)
[2022-04-28] MEDS: VALPROIC ACID 250 MG/5 ML ORAL LIQD FEEDTUBE SCH (10:52)
[2022-04-28] MEDS ORDERED: SODIUM CHLORIDE 0.9% 500 ML 500 ML ONE (11:08)
--- NOTE | 2022-04-28 12:40 | Gastroenterology Progress Note ---
Assessment and Plan 1. GI: pt discussed w/ Anaramos, given low BP and on Levophed procedure deferred - continue current management per consultants - when stable can recall for possible PEG placement Subjective Date of service: 04/28/22 Principal diagnosis: AHRF; Shock; AMS; SVT; NSTEMI; ESRD; Protein calorie malnutrition Interval history: - no GI issues overnight. Pt on Levophed with low BP Objective - Constitutional Vitals: Temp Pulse Resp BP Pulse Ox 98 F 98 H 19 88/49 100 04/28/22 12:00 04/28/22 12:00 04/28/22 12:00 04/28/22 12:00 04/28/22 12:00 General appearance: no acute distress - EENT Eyes: PERRL - Respiratory Respiratory: bilateral: CTA - Cardiovascular Rhythm: regular Heart Sounds: Present: S1 & S2 - Gastrointestinal General gastrointestinal: Present: soft, non-tender, non-distended - Labs CBC & Chem 7: 04/27/22 04:45 04/27/22 04:45 Labs: Laboratory Results - last 24 hr 04/27/22 04/28/22 04/28/22 23:38 05:26 12:31 POC Glucose 229 H 169 H 132 H
--- NOTE | 2022-04-28 12:42 | Consultation ---
History of Present Illness - Reason for Consult Consult date: 04/28/22 Right Internal Jugular Thrombus Requesting physician: LORRAINE CASTELLANO - History of Present Illness The patient is a 66-year-old female with history of end-stage renal disease who is on hemodialysis through a right arm arteriovenous graft. She was brought to the hospital secondary to mental status changes associated with weakness and hypotension. She was admitted to the intensive care unit where she was initially on pressure support however this has been weaned off. She also had SVT which was converted with adenosine. She was started on a Heparin gtt for the SVT however it was stopped secondary to acute blood loss anemia, without an identified source. She was noted to have right upper extremity swelling and a right IJ thrombus was noted. Unable to get any additional history from the patient, secondary to mental status changes, so the history was obtained from the hospital records. Past History Past Medical History: arrhythmia (SVT), dialysis, DVT, ESRD, hypertension, other (See HPI) Past Surgical History: hysterectomy, Other (creation of left arm AVG, repair of left brachial artery pseudoaneurysm with reversed interposition saphenous vein graft, creation of right axillary artery to axillary vein AVG, multiple permacaths) Social history: full code, other (Lives in intermediate). denies: smoking, alcohol abuse, prescription drug abuse Family history: other (unable to obtain due to mental status) Medications and Allergies Allergies Allergy/AdvReac Type Severity Reaction Status Date / Time buspirone [From BuSpar] Allergy Unknown Verified 04/18/22 12:22 Penicillins Allergy Rash Verified 04/18/22 12:22 corn AdvReac Unknown Verified 04/18/22 12:22 Home Medications Medication Instructions Recorded Confirmed Last Taken Type Sevelamer Carbonate [Renvela] 0.8 gram PO TIDWM 09/02/20 02/02/22 05/31/21 History HYDROcodone/APAP 5-325 [Axtell 1 each PO Q4HR PRN #30 tablet 05/18/21 02/02/22 Unknown Rx 5-325 mg TAB] ALBUTEROL NEB's [Proventil 0.083% 2.5 mg IH Q3HRT PRN #1 nebu 03/03/22 Unknown Rx NEBS] Clopidogrel [Plavix] 75 mg PO QDAY #90 tablet 03/03/22 Unknown Rx Divalproex [Sarina Serrano] 750 mg PO BID #60 tablet 03/03/22 Unknown Rx LORazepam [Ativan] 1 mg PO DAILY #30 tab 03/03/22 Unknown Rx Memantine Xr [Namenda Xr] 5 mg PO DAILY #30 cap 03/03/22 Unknown Rx Midodrine [Proamatine] 10 mg PO TID #90 tab 03/03/22 Unknown Rx Pantoprazole [Protonix TAB] 40 mg PO DAILY #30 tab 03/03/22 Unknown Rx QUEtiapine [SEROquel] 400 mg PO BID #60 tab 03/03/22 Unknown Rx risperiDONE [RisperDAL] 0.5 mg PO BID #60 tab 03/03/22 Unknown Rx Active Meds: Active Medications Acetaminophen (Acetaminophen 325 Mg/10.15 Ml Oral Liqd Unit Dose) 650 mg PO Q6H PRN PRN Reason: Pain MILD(1-3)/Fever >100.5/DRAKE Last Admin: 04/24/22 17:55 Dose: 650 mg Albumin Human (Albumin Human 25% (25 Gm/100 Ml) Inj) 25 gm IV BIANCA PRN PRN Reason: Hypotension Last Admin: 04/22/22 16:31 Dose: 25 gm Albuterol (Albuterol 2.5 Mg/3 Ml Nebu) 2.5 mg IH Q3HRT PRN PRN Reason: Shortness Of Breath Last Admin: 04/24/22 16:51 Dose: 2.5 mg Albuterol/Ipratropium (Ipratropium/Albuterol Sulfate 3 Ml Ampul.Neb) 1 ampul IH TIDRT [facility] Last Admin: 04/28/22 07:41 Dose: 1 ampul Epoetin Lb-epbx (Epoetin Lb-Epbx 20,000 Unit/1 Ml Vial) 20,000 unit IV BIANCA PRN PRN Reason: HEMODIALYSIS Last Admin: 04/25/22 20:00 Dose: 20,000 unit Fludrocortisone Acetate (Fludrocortisone 0.1 Mg Tab) 0.05 mg PO QDAY [facility] Stop: 05/01/22 10:01 Last Admin: 04/28/22 10:47 Dose: 0.05 mg NORepinephrine/NS 8 MG-250 ML (Norepinephrine/Ns 8 Mg-250 Ml (Double Conc)) 8 mg in 250 mls @ 3.75 mls/hr IV TITRATE [facility]; Protocol Last Titration: 04/28/22 11:05 Dose: Infused Sodium Chloride (Nacl 0.9%) 100 mls @ 999 mls/hr IV BIANCA PRN PRN Reason: Hypotension Phenylephrine HCl 100 mg/ (Sodium Chloride) 100 mls @ 3 mls/hr IV TITR [facility]; Protocol Lansoprazole (Lansoprazole 30 Mg Solutab) 30 mg FEEDTUBE QDAY [facility] Last Admin: 04/28/22 10:45 Dose: 30 mg Lorazepam (Lorazepam 0.5 Mg Tab) 0.5 mg FEEDTUBE QDAY PRN PRN Reason: Anxiety Memantine (Memantine 5 Mg Tab) 5 mg FEEDTUBE BID [facility] Last Admin: 04/28/22 10:45 Dose: 5 mg Metoclopramide HCl (Metoclopramide 10 Mg/2 Ml Inj) 5 mg IV Q6H PRN PRN Reason: Nausea And Vomiting Midodrine (Midodrine 10 Mg Tab) 20 mg FEEDTUBE TID [facility] Last Admin: 04/28/22 08:28 Dose: 20 mg Naloxone HCl (Naloxone 0.4 Mg/1 Ml Inj) 0.1 mg IV Q2MIN PRN PRN Reason: Res Rate </= 8 or 02 SAT < 92% Polyethylene Glycol (Polyethylene Glycol 3350 17 Gm Powder) 17 gm PO QDAY [facility] Last Admin: 04/28/22 10:46 Dose: 17 gm Quetiapine Fumarate (Quetiapine 200 Mg Tab) 200 mg FEEDTUBE QHS [facility] Last Admin: 04/27/22 21:50 Dose: 200 mg Quetiapine Fumarate (Quetiapine 100 Mg Tab) 100 mg FEEDTUBE QAM [facility] Last Admin: 04/28/22 10:46 Dose: 100 mg Risperidone (Risperidone 1 Mg Tab) 0.5 mg FEEDTUBE BID [facility] Last Admin: 04/28/22 10:46 Dose: 0.5 mg Senna (Sennosides 8.6 Mg Tab) 17.2 mg FEEDTUBE BID [facility] Last Admin: 04/28/22 10:46 Dose: 17.2 mg Sodium Chloride (Sodium Chloride 0.9% 10 Ml Flush Syringe) 10 ml IV BID [facility] Last Admin: 04/28/22 11:04 Dose: 10 ml Sodium Chloride (Sodium Chloride 0.9% 10 Ml Flush Syringe) 10 ml IV PRN PRN PRN Reason: LINE FLUSH Valproic Acid (Valproic Acid 250 Mg/5 Ml Oral Liqd) 750 mg FEEDTUBE BID [facility] Last Admin: 04/28/22 10:52 Dose: 750 mg Review of Systems ROS unobtainable: due to mental status Exam - Constitutional Vitals: Temp Pulse Resp BP Pulse Ox 98 F 98 H 19 88/49 100 04/28/22 12:00 04/28/22 12:00 04/28/22 12:00 04/28/22 12:00 04/28/22 12:00 General appearance: Present: no acute distress - EENT ENT: other (dobbhoff in place) - Respiratory Respiratory effort: normal - Cardiovascular Rhythm: regular - Extremities Extremity abnormal: other (right arm AVG with slight pulsatility, no pseudoaneurym formation, left arm edema) - Abdominal General gastrointestinal: Present: soft Results - Labs CBC & Chem 7: 04/27/22 04:45 04/27/22 04:45 Labs: Abnormal lab results 04/27/22 04/28/22 04/28/22 Range/Units 23:38 05:26 12:31 POC Glucose 229 H 169 H 132 H (70-105) mg/dL - Imaging and Cardiology Venous US: image reviewed Assessment and Plan The patient is a 66-year-old female with end-stage renal disease who is on hemodialysis through a right axillary BX revealing arteriovenous loop graft. She was noted to have swelling of the right upper extremity and a venous duplex demonstrated an atretic right internal jugular vein with thrombus. 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 The patient's right arm arteriovenous graft has slight pulsatility, consistent with a venous outflow stenosis which is the most likely cause for her right arm swelling. The patient is in need of a diagnostic fistulogram with possible intervention. This will resolve her right arm swelling. The patient is schedu led for PEG tube placement today so this will likely be performed next week if the patient remains in the hospital in a stable condition.
[2022-04-28 13:55] LABS: Hematocrit 22.1 % (30.3-42.9); Hemoglobin 6.9 gm/dl (10.1-14.3); Mean Corpuscular HGB Conc 31 % (30-34); Mean Corpuscular Volume 92 fl (79-97); Platelet Count 219 K/mm3 (140-440); Red Cell Distribution Width 17.2 % (13.2-15.2)
--- NOTE | 2022-04-28 14:02 | Progress Note ---
Assessment and Plan Patient is a 66-year-old female with a past medical history of end-stage renal disease on hemodialysis, hypertension, seizure disorder, bipolar disorder, schizophrenia, anxiety, limited mobility, and vascular dementia who presented to the ED from [facility] detention with report of altered mental status for several days AMS End-stage renal disease on hemodialysis-nephrology following SVT Hypotension Schizophrenia Vascular dementia Bipolar disorder Hypotension Echo 01/31/2022-EF 60 to 65%. Doppler flow pattern suggests impaired LV relaxation. Right ventricle systolic function is normal trace aortic regurgitation. Trace mitral regurgitation. Plan: Patient found to have right IJ thrombus. Vascualr following Telemetry reviewed patient remains in sinus to sinus tach Due to anemia requiring PRBC transfusion will continue to hold anticoagulation Due to patient's mental status and comorbidities recommend conservative management No MARGOTH, ARB, beta-hernan due to hypotension Patient currently in sinus rhythm and has history of hypotension and has been restarted on pressors. Suspect hypotension is not of cardiac origin Agree with midodrine Defer volume management to nephrology due to patient renal function Per documentation and discussion with staff patient is pending placement of PEG Pt is a non-modifiable risk CV pt awaiting intervention for PEG. RCRI class is IV (3 points, 15% risk of MACE). In the absence however of ischemic cardiac symptoms or acutely decompensated HF, there are no contraindications to intervention at this time from a CV standpoint. Will see as needed over weekend Pt seen in conjunction with Dr. Garcia, who agrees with the assessment and plan of care. - Patient Problems (1) Altered mental status Current Visit: Yes Status: Acute (2) Elevated troponin Current Visit: Yes Status: Acute (3) Uremic encephalopathy Current Visit: Yes Status: Acute (4) ESRD (end stage renal disease) on dialysis Current Visit: Yes Status: Chronic (5) Hypotension Current Visit: Yes Status: Chronic Qualifiers: (6) Schizophrenia Current Visit: Yes Status: Chronic Qualifiers: (7) Acute encephalopathy Current Visit: No Status: Acute (8) Bipolar disorder Current Visit: No Status: Acute (9) Cerebral atherosclerosis Current Visit: Yes Status: Chronic (10) Atrial fibrillation with RVR Current Visit: Yes Status: Acute (11) SVT (supraventricular tachycardia) Current Visit: Yes Status: Acute (12) Type 2 myocardial infarction Current Visit: Yes Status: Acute Subjective Date of service: 04/28/22 Principal diagnosis: AHRF; Shock; AMS; SVT; NSTEMI; ESRD; Protein calorie malnutrition Interval history: Patient resting in bed in no acute distress. Remains with altered mental statuss Patient in sinus rhythm 100s-110s Objective Vital Signs Temp Pulse Pulse Pulse Resp Resp BP 04/28/22 13:36 85 22 04/28/22 13:01 89 21 87/45 04/28/22 12:30 95 H 21 96/45 04/28/22 12:00 98 F 98 H 98 H 22 88/49 04/28/22 11:30 110 H 21 96/51 04/28/22 11:00 84 22 94/43 04/28/22 10:30 83 19 108/55 04/28/22 10:00 90 22 92/48 04/28/22 09:30 100 H 32 H 114/61 04/28/22 09:00 111 H 25 H 115/65 04/28/22 08:31 97 H 21 96/52 04/28/22 08:00 97.9 F 99 H 98 H 21 92/56 04/28/22 07:41 101 H 18 04/28/22 07:30 102 H 22 110/67 04/28/22 07:00 96 H 17 106/53 04/28/22 06:31 102 H 14 115/64 04/28/22 06:00 98 H 26 H 116/61 04/28/22 05:30 100 H 20 94/57 04/28/22 05:00 93 H 21 99/51 04/28/22 04:30 92 H 25 H 109/55 04/28/22 04:00 98.8 F 90 98 H 21 103/53 04/28/22 03:30 93 H 22 114/54 04/28/22 03:00 94 H 23 100/51 04/28/22 02:31 96 H 22 98/57 04/28/22 02:00 97 H 24 105/54 04/28/22 01:30 100 H 24 112/56 04/28/22 01:00 111 H 24 102/66 04/28/22 00:30 113 H 27 H 122/65 04/28/22 00:00 97.6 F 109 H 111 H 25 H 112/54 04/27/22 23:30 119 H 23 115/56 08/11/22 23:00 123 H 17 105/55 04/27/22 22:30 129 H 17 87/57 04/27/22 22:00 120 H 24 106/58 04/27/22 21:30 114 H 25 H 110/53 04/27/22 21:12 04/27/22 21:00 111 H 24 109/59 04/27/22 20:30 109 H 30 H 112/49 04/27/22 20:29 111 H 25 H 04/27/22 20:00 97.5 F L 105 H 109 H 25 H 91/44 04/27/22 19:30 103 H 26 H 95/56 04/27/22 19:21 107 H 37 H 93/52 04/27/22 19:00 108 H 31 H 104/62 04/27/22 18:50 97.1 F L 108 H 28 H 115/42 04/27/22 18:30 103 H 28 H 118/52 04/27/22 18:22 107 H 27 H 118/52 04/27/22 18:20 104 H 98/50 04/27/22 18:15 105 H 118/52 04/27/22 18:00 109 H 27 H 118/51 04/27/22 17:45 109 H 118/51 04/27/22 17:31 107 H 113/54 04/27/22 17:30 107 H 22 119/60 04/27/22 17:15 110 H 119/60 04/27/22 17:00 111 H 26 H 93/52 04/27/22 16:45 110 H 93/52 04/27/22 16:31 112 H 27 H 92/65 04/27/22 16:30 109 H 92/65 04/27/22 16:15 113 H 89/62 04/27/22 16:10 24 04/27/22 16:00 99 F 113 H 27 H 106/52 04/27/22 15:45 112 H 96/48 04/27/22 15:30 109 H 28 H 93/37 04/27/22 15:20 107 H 101/58 04/27/22 15:00 97.1 F L 120 H 14 101/58 04/27/22 14:30 115 H 31 H 79/44 Pulse Ox Pulse Ox 04/28/22 13:36 04/28/22 13:01 98 04/28/22 12:30 100 04/28/22 12:00 98 04/28/22 11:30 96 04/28/22 11:00 99 04/28/22 10:30 100 04/28/22 10:00 100 04/28/22 09:30 97 04/28/22 09:00 95 04/28/22 08:31 100 04/28/22 08:00 100 04/28/22 07:41 100 04/28/22 07:30 100 04/28/22 07:00 100 04/28/22 06:31 97 04/28/22 06:00 99 04/28/22 05:30 100 04/28/22 05:00 100 04/28/22 04:30 100 04/28/22 04:00 100 04/28/22 03:30 100 04/28/22 03:00 100 04/28/22 02:31 100 04/28/22 02:00 100 04/28/22 01:30 100 04/28/22 01:00 99 04/28/22 00:30 98 04/28/22 00:00 100 04/27/22 23:30 99 04/27/22 23:00 98 04/27/22 22:30 95 04/27/22 22:00 97 04/27/22 21:30 96 04/27/22 21:12 98 04/27/22 21:00 97 04/27/22 20:30 100 04/27/22 20:29 04/27/22 20:00 100 04/27/22 19:30 100 04/27/22 19:21 99 04/27/22 19:00 100 04/27/22 18:50 100 04/27/22 18:30 100 04/27/22 18:22 100 04/27/22 18:20 04/27/22 18:15 04/27/22 18:00 100 04/27/22 17:45 04/27/22 17:31 04/27/22 17:30 100 04/27/22 17:15 04/27/22 17:00 100 04/27/22 16:45 04/27/22 16:31 100 04/27/22 16:30 04/27/22 16:15 04/27/22 16:10 96 04/27/22 16:00 100 04/27/22 15:45 04/27/22 15:30 100 04/27/22 15:20 04/27/22 15:00 98 100 04/27/22 14:30 97 - Physical Examination General: No Apparent Distress HEENT: Positive: Normocephaly, Mucus Membranes Dry Neck: Positive: trachea midline. Negative: JVD/HJR Cardiac: Positive: Regular Rhythm, Tachycardia Lungs: Positive: Rales Neuro: Positive: Other (unable to assess) Abdomen: Positive: Soft Skin: Negative: Rash Extremities: Present: edema (RUE) - Labs and Meds CBC 04/28/22 Range/Units 07:54 WBC 11.1 H (4.5-11.0) K/mm3 RBC 2.40 L (3.65-5.03) M/mm3 Hgb 6.9 L (10.1-14.3) gm/dl Hct 22.1 L D (30.3-42.9) % Plt Count 219 (140-440) K/mm3 - Imaging and Cardiology EKG: report reviewed, image reviewed Echo: report reviewed (TTE 01/31/2022 - EF 60 to 65%. Doppler flow pattern suggests impaired LV relaxation. Right ventricle systolic function is normal. Trace aortic regurgitation. Trace mitral regurgitation.) - Telemetry EKG Rhythm: Sinus Tachycardia - EKG Sinus rhythms and dysrhythmias: sinus tachycardia Repolarization changes or abnormalities: nonspecific abnormality, ST segment, and/or T wave - Allied health notes Allied health notes reviewed: nursing
[2022-04-28] MEDS ORDERED: SODIUM CHLORIDE 0.9% 500 ML 500 ML IV ONE (14:03)
--- NOTE | 2022-04-28 14:15 | Progress Note ---
<NONALORRAINE VianeySue - Last Filed: 04/28/22 14:12> Assessment and Plan Assessment and plan: This is a 66-year-old female with HTN, GERD, seizure disorder, vascular dementia, ESRD on HD, chronic hypertension, bipolar, schizophrenia, anxiety admitted with acute hypoxic respiratory failure, acute on chronic hypotension, acute on chronic metabolic encephalopathy and SVT Neuro: h/o vascular dementia, schizophrenia, bipolar, anxiety disorder -Continue home Seroquel at reduced dose -As needed Ativan -Reorientation as needed -Maintain sleep-wake cycle -As needed analgesia -Continue home memantine, respiradol, valproic acid -CT head showed no acute intracranial abnormalities, no significant interval changes -Psych consulted, appreciate recommendations Cardiac: SVT s/p cardioversion, chronic hypotension, NSTEMI type II -Cardiology consulted, appreciate recommendations -Blood pressure monitoring per protocol -vasopressor support with Levophed -MAP goal 60 -Midodrine 20mg TID -Echo 01/31/2022-EF 60 to 65%. Doppler flow pattern suggests impaired LV relaxation. Right ventricle systolic function is normal trace aortic regurgitation. Trace mitral regurgitation. -Lipitor, Plavix Respiratory: Acute hypoxic respiratory failure -[facility] consulted, appreciate recommendations -Chest ultrasound shows bilateral pleural effusions, right greater than left -Supplemental oxygen as needed -Pulmonary hygiene -SPO2 monitor per protocol GI: Moderate protein calorie malnutrition -24 hours + 929 mL -PPI -TF -GI consulted for PEG tube placement -BR: Senokot : ESRD on HD -Nephrology consulted, appreciate recommendations -HD per nephrology -Monitor intake and output -Renally dose medications -Avoid nephrotoxic medications -Epogen 3 times daily -Trend BMP ID: NAD -f/u blood culture -04/19 blood cultures x2 NGTD -Monitor WBC and temperature curve Endo: NAD -Avoid hypoglycemia Heme: Anemia of chronic disease, RIJ thrombus -Vascular surgery consulted, appreciate recommendations -Trend CBC -Transfuse hemoglobin less than 7 -Hemoglobin 6.9 -Transfuse 1 unit PRBC -s/p 1 unit PRBC -Epogen 3 times daily -SCDs to BLE while in bed The high probability of a clinically significant, sudden or life threatening deterioration of the [multiple] system(s) required my full and direct attention, intervention and personal management. The aggregate critical care time was [60] minutes. This time is in addition to time spent performing reported procedures but includes the following: [x] Data Review and interpretation [x] Patient assessment and monitoring of vital signs [x] Documentation [x] Medication orders and management Disposition Plan: icu Total Time Spent with Patient (Minutes): 60 History Interval history: This is a 66-year-old female with HTN, GERD, seizure disorder, vascular dementia, ESRD on HD (TTS), OA, chronic hypotension, bipolar, schizophrenia, anxiety examined mobility with a resident of [facility] present to the emergency department on 04/19 with altered mental status and for being combative causing her to miss several days of hemodialysis. On presentation patient was found to be more hypertensive than usual and on room air with oxygen saturations in the 90s and she subsequently went into SVT into the 150s requiring cardioversion under conscious sedation. Patient was admitted to the hospital service with acute hypoxic respiratory failure, acute on chronic hypotension, acute on chronic metabolic encephalopathy, SVT, hyperkalemia, NSTEMI type II to the ICU with consults to CCM, nephrology cardiology and psych. Hospital Course to Date: 04/20: Patient went into Afib with RVR overnight, now on amiodarone gtt per cardio. Patient remains in AFib with RVR this am, HR in the 120-140s. BP marginal on Levophed gtt, currently not a candidate for BB. Midodrine increased to 15mg TID. 2D Echo pending. On heparin gtt per protocol. No HD today per nephro due to hypotension and tachycardia. 04/21: Converted to SR this am, remains on Amiodarone and heparin. Awaiting cardio final recommendations. Still on Levophed gtt for low BP, given patient history of chronic hypotension, Wean pressor for MAP goal of 60s. Patient is pocketing foods, currently NPO, awaiting speech eval and treat. 04/22: Patient passed speech swallow eval yesterday, however, patient is refusing PO intakes including meds. Will insert DHT for nutrition and meds administration. Patient remains in SR this am, amiodaron gtt transitioned to PO per cardio. Patient remains on heparin and Levophed gtt. Patient has not received PO midrodrine for 24hrs, resume meds once DHT is inserted. Keep femoral CVC for another 24hrs, anticipating will be able to wean off pressor once patient receive midodrine. Will reassess in the morning. No HD overnight, unable to cannulate AVF, plan to attempt again today per Nephro. Possible IR/Vascular surgery consult if unsuccessful again today. 04/23: Mentation a lot better this am. DHT was inserted, meds resumed and TF initiated. Levophed gtt increased overnight due to worsen hypotension, suspected it is due to sedative agents. Seroquel decreased to 200mg BID and scheduled ativan switched to PRN. Continue midodrine TID and wean off levophed gtt for MAP goal of 60. Patient tolerated HD yesterday, continue iHD per Nephrology. [facility] recommendations noted, Chest US ordered for pleural effusion. 04/24: RN instructed to wean Levophed off, goal MAP of 60. Heparin drip stopped due to decreasing hemoglobin. 04/25: ST had cleared the patient for pured diet which will be started today, hemodialysis planned for today, patient was to be anemic and will receive 1 unit PRBC with HD. We will increase midodrine to 20 mg 3 times daily if patient becomes hypotensive during dialysis. Per CCM. Decrease in seroqoul but will increase if needed 04/26: Patient agreeable to PEG, GI consulted for placement. Femoral line removed 04/27: No acute events reported overnight, patient has been cardiac cleared for PEG tube placement. Possible PEG in the a.m. This afternoon attempted to place IJ CVL which was unsuccessful and Dr. Mcguire ultimately placed femoral CVL for the initiation of Levophed. HD scheduled for today. 04/28: Patient initially started on Levophed yesterday and she received a femoral CVL. 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 Vascular surgery was consulted. Patient also noted to be anemic and received 1 unit PRBC today. Hospitalist Physical - Constitutional Vitals: Temp Pulse Resp BP Pulse Ox 98 F 85 22 87/45 98 04/28/22 12:00 04/28/22 13:36 04/28/22 13:36 04/28/22 13:01 04/28/22 13:01 General appearance: Present: no acute distress - EENT Eyes: Present: PERRL, EOM intact ENT: poor dentition - Neck Neck: Present: normal ROM - Respiratory Respiratory effort: normal Respiratory: bilateral: diminished - Cardiovascular Rhythm: regular Heart Sounds: Present: S1 & S2. Absent: systolic murmur, diastolic murmur - Extremities Extremities: no ischemia, pulses intact, pulses symmetrical Extremity abnormal: edema Peripheral Pulses: within normal limits - Abdominal General gastrointestinal: soft, non-tender, non-distended, normal bowel sounds - Integumentary Integumentary: Present: warm, dry - Psychiatric Psychiatric: cooperative - Neurologic Neurologic: CNII-XII intact, no focal deficits, moves all extremities - Allied Health Allied health notes reviewed: nursing, RT, social work HEART Score - HEART Score Troponin: Troponin T 0.415 ng/mL (0.00-0.029) H* 04/19/22 04:53 Results - Labs CBC & Chem 7: 04/28/22 07:54 04/27/22 04:45 Labs: Laboratory Last Values WBC 11.1 K/mm3 (4.5-11.0) H 04/28/22 07:54 RBC 2.40 M/mm3 (3.65-5.03) L 04/28/22 07:54 Hgb 6.9 gm/dl (10.1-14.3) L 04/28/22 07:54 Hct 22.1 % (30.3-42.9) L D 04/28/22 07:54 MCV 92 fl (79-97) 04/28/22 07:54 MCH 29 pg (28-32) 04/28/22 07:54 MCHC 31 % (30-34) 04/28/22 07:54 RDW 17.2 % (13.2-15.2) H 04/28/22 07:54 Plt Count 219 K/mm3 (140-440) 04/28/22 07:54 Lymph % (Auto) 26.7 % (13.4-35.0) 04/20/22 05:30 [place] % (Auto) 15.2 % (0.0-7.3) H 04/20/22 05:30 Eos % (Auto) 3.8 % (0.0-4.3) 04/20/22 05:30 Baso % (Auto) 1.2 % (0.0-1.8) 04/20/22 05:30 Lymph # (Auto) 1.1 K/mm3 (1.2-5.4) L 04/20/22 05:30 [place] # (Auto) 0.6 K/mm3 (0.0-0.8) 04/20/22 05:30 Eos # (Auto) 0.2 K/mm3 (0.0-0.4) 04/20/22 05:30 Baso # (Auto) 0.0 K/mm3 (0.0-0.1) 04/20/22 05:30 Seg Neutrophils % 53.1 % (40.0-70.0) 04/20/22 05:30 Seg Neutrophils # 2.2 K/mm3 (1.8-7.7) 04/20/22 05:30 PT 17.9 Sec. (12.2-14.9) H 04/19/22 19:40 INR 1.28 (0.87-1.13) H 04/19/22 19:40 APTT 199.1 Sec. (24.2-36.6) H* 04/19/22 19:40 Heparin Anti-Xa Level < 0.10 U.I./ml (0.3-0.7) L 04/24/22 10:20 Sodium 131 mmol/L (137-145) L 04/27/22 04:45 Potassium 4.1 mmol/L (3.6-5.0) 04/27/22 04:45 Chloride 93.5 mmol/L (98-107) L 04/27/22 04:45 Carbon Dioxide 26 mmol/L (22-30) 04/27/22 04:45 Anion Gap 16 mmol/L 04/27/22 04:45 BUN 44 mg/dL (7-17) H 04/27/22 04:45 Creatinine 3.9 mg/dL (0.6-1.2) H 04/27/22 04:45 Estimated GFR 14 ml/min 04/27/22 04:45 BUN/Creatinine Ratio 11 % 04/27/22 04:45 Glucose 135 mg/dL (65-100) H 04/27/22 04:45 POC Glucose 132 mg/dL (70-105) H 04/28/22 12:31 Lactic Acid 1.60 mmol/L (0.7-2.0) 04/19/22 07:14 Calcium 9.7 mg/dL (8.4-10.2) 04/27/22 04:45 Phosphorus 2.50 mg/dL (2.5-4.5) 04/24/22 04:00 Magnesium 1.80 mg/dL (1.7-2.3) 04/24/22 04:00 Total Bilirubin 0.30 mg/dL (0.1-1.2) 04/20/22 05:30 AST 11 units/L (5-40) 04/20/22 05:30 ALT 7 units/L (7-56) 04/20/22 05:30 Alkaline Phosphatase 101 units/L (35-129) 04/20/22 05:30 Ammonia 25.0 umol/L (25-60) 04/19/22 04:53 Troponin T 0.415 ng/mL (0.00-0.029) H* 04/19/22 04:53 Total Protein 6.4 g/dL (6.3-8.2) 04/20/22 05:30 Albumin 2.4 g/dL (3.9-5) L 04/20/22 05:30 Albumin/Globulin Ratio 0.6 % 04/20/22 05:30 TSH 1.700 mlU/mL (0.270-4.200) 04/19/22 04:53 Free T4 0.28 ng/dL (0.76-1.46) L 04/19/22 04:53 Hepatitis A IgM Ab Non-reactive (NonReactive) 04/19/22 04:53 Hep Bs Antigen Non-reactive (Negative) 04/19/22 04:53 Hep B Core IgM Ab Non-reactive (NonReactive) 04/19/22 04:53 Hepatitis C Antibody Non-reactive (NonReactive) 04/19/22 04:53 Blood Type A POSITIVE 04/25/22 15:30 Antibody Screen Negative 04/25/22 15:30 Crossmatch See Detail 04/25/22 15:30 Cleary/IV: Voiding Method External Female Catheter Active Medications - Current Medications Current Medications: Generic Name Dose Route Start Last Admin Trade Name Freq PRN Reason Stop Dose Admin Acetaminophen 650 mg 04/22/22 20:12 04/24/22 17:55 Acetaminophen 325 Mg/10.15 Ml Oral Liqd Unit Dose PO 650 mg Q6H PRN Administration Pain MILD(1-3)/Fever >100.5/DRAKE Albumin Human 25 gm 04/21/22 13:00 04/22/22 16:31 Albumin Human 25% (25 Gm/100 Ml) Inj IV 25 gm BIANCA PRN Administration Hypotension Albuterol 2.5 mg 04/21/22 08:30 04/24/22 16:51 Albuterol 2.5 Mg/3 Ml Nebu IH 2.5 mg Q3HRT PRN Administration Shortness Of Breath Albuterol/Ipratropium 1 ampul 04/21/22 14:00 04/28/22 13:36 Ipratropium/Albuterol Sulfate 3 Ml Ampul.Neb IH 1 ampul TIDRT CONNOR Administration Epoetin Lb-epbx 20,000 unit 04/23/22 12:00 04/25/22 20:00 Epoetin Lb-Epbx 20,000 Unit/1 Ml Vial IV 20,000 unit BIANCA PRN Administration HEMODIALYSIS Fludrocortisone Acetate 0.05 mg 04/28/22 10:00 04/28/22 10:47 Fludrocortisone 0.1 Mg Tab PO 05/01/22 10:01 0.05 mg QDAY CONNOR Administration NORepinephrine/NS 8 MG-250 ML 8 mg in 250 mls @ 3.75 mls/hr 04/19/22 09:00 04/28/22 11:05 Norepinephrine/Ns 8 Mg-250 Ml (Double Conc) IV Infused TITRATE CONNOR Titration Protocol 2 MCG/MIN Sodium Chloride 100 mls @ 999 mls/hr 04/22/22 09:12 Nacl 0.9% IV BIANCA PRN Hypotension Phenylephrine HCl 100 mg/ 100 mls @ 3 mls/hr 04/27/22 14:00 Sodium Chloride IV TITR CONNOR Protocol 50 MCG/MIN Sodium Chloride 500 mls @ 0 mls/hr 04/28/22 14:03 Nacl 0.9% 500 Ml IV 04/28/22 14:04 ONCE ONE As Directed Lansoprazole 30 mg 04/23/22 10:00 04/28/22 10:45 Lansoprazole 30 Mg Solutab FEEDTUBE 30 mg QDAY CONNOR Administration Lorazepam 0.5 mg 04/25/22 09:59 Lorazepam 0.5 Mg Tab FEEDTUBE QDAY PRN Anxiety Memantine 5 mg 04/25/22 10:00 04/28/22 10:45 Memantine 5 Mg Tab FEEDTUBE 5 mg BID CONNOR Administration Metoclopramide HCl 5 mg 04/19/22 09:55 Metoclopramide 10 Mg/2 Ml Inj IV Q6H PRN Nausea And Vomiting Midodrine 20 mg 04/26/22 14:00 04/28/22 08:28 Midodrine 10 Mg Tab FEEDTUBE 20 mg TID CONNOR Administration Naloxone HCl 0.1 mg 04/19/22 09:55 Naloxone 0.4 Mg/1 Ml Inj IV Q2MIN PRN Res Rate </= 8 or 02 SAT < 92% Polyethylene Glycol 17 gm 04/28/22 10:00 04/28/22 10:46 Polyethylene Glycol 3350 17 Gm Powder PO 17 gm QDAY CONNOR Administration Quetiapine Fumarate 200 mg 04/25/22 22:00 04/27/22 21:50 Quetiapine 200 Mg Tab FEEDTUBE 200 mg QHS CONNOR Administration Quetiapine Fumarate 100 mg 04/26/22 10:00 04/28/22 10:46 Quetiapine 100 Mg Tab FEEDTUBE 100 mg QAM CONNOR Administration Risperidone 0.5 mg 04/25/22 11:00 04/28/22 10:46 Risperidone 1 Mg Tab FEEDTUBE 0.5 mg BID CONNOR Administration Senna 17.2 mg 04/23/22 10:00 04/28/22 10:46 Sennosides 8.6 Mg Tab FEEDTUBE 17.2 mg BID CONNOR Administration Sodium Chloride 10 ml 04/19/22 12:00 04/28/22 11:04 Sodium Chloride 0.9% 10 Ml Flush Syringe IV 10 ml BID CONNOR Administration Sodium Chloride 10 ml 04/19/22 11:19 Sodium Chloride 0.9% 10 Ml Flush Syringe IV PRN PRN LINE FLUSH Valproic Acid 750 mg 04/22/22 22:00 04/28/22 10:52 Valproic Acid 250 Mg/5 Ml Oral Liqd FEEDTUBE 750 mg BID CONNOR Administration Nutrition/Malnutrition Assess - Dietary Evaluation Nutrition/Malnutrition Findings: Nutrition Notes Start: 04/19/22 17:39 Freq: Status: Active Protocol: Document 04/24/22 14:13 MIRIAN (Rec: 04/24/22 14:54 MIRIAN [id number]) Nutrition Notes Initial or Follow up Reassessment Current Diagnosis CKD (stage V CKD),Hypertension ,Malnutrition Other Pertinent Diagnosis Metabolic Encephalopathy, ESRD +HD, Anemia, NSTEMI II, Hypotension, SIRS,... Current Diet Nepro w/CARBSTEADY @ 30 ml/hr (since D 04/22). Labs/Tests 04/24: Na 134, BUN 42, Crea 3. 9, Glu 141. Pertinent Medications 04/24: Renvela, others nutritionally unremarkable. 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 No body weight change reported in 5 days. Weight Status Appropriate Subjective/Other Information RD consult for TF tolerance/ continuation assessment. TF continues as prescribed, No further information available at the time. FASHION ADVISER notes on 04/21/22 13:28: Swallowing function has been assessed. Patient holds the bolus in the oral cavity for an extended period of time prior to initiating a swallow. This is attributed to her diminished mental acuity. Recommend a pureed diet with thins. However, intake must be monitored closely to ensure she eats a sufficient amount to maintain adequate nutritional support. Will continue to follow to determine if the diet may be upgraded pending her mental status. - END OF NOTE. Pt is on Room Air, O2 saturation @ 95%, according to Physical Assessment History notes. Percent of energy/protein needs met: Prescribed Nepro w/CARBSTEADY @ 30 ml/hr provides for energy /protein needs (1,269 Kcal/58 g) during LOS, 102% Kcal; 89% AA. GI Symptoms None Food Allergy Yes Skin Integrity/Comment Healing Sacral wound, intact. 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 Patient holds the bolus in the oral cavity for an extended period of time prior to initiating a swallow. This is attributed to her diminished mental acuity. Recommend a pureed diet with thins. However, intake must be monitored closely to ensure she eats a sufficient amount to maintain adequate nutritional support. Will continue to follow to determine if the diet may be upgraded pending her mental status. - END OF NOTE. Diagnosis Progress(for reassessment Continues documentation) Is patient on ventilator? No Is Patient Ambulatory and/or Out of Bed No [facility] [phone] Calculation Used for Recommendations [facility] Additional Notes Protein: >1.2 g/Kg ABW; >65 g/ day. Fluids: 1-1.5 L/day, or as per MD. Nutrition Intervention Nutrition Support: Continue Nepro w/CARBSTEADY @ 30 ml/hr. Flush: 130 ml water Q 4 hr, or as per MD. Kcal 1,269 Protein (gm) 58 Carbohydrates (gm) 116 Fat (gm) 58 Fluid (mL) 523 Fiber (gm) 9 % RDI: 102% Kcal; 89% AA. Goal #1 Provide at least 75% of energy /protein needs through Enteral Feeding during LOS. Follow-Up By: 05/01/22 Additional Comments Continue monitoring TF tolerance, vasopressors, and BM. <AMAURY KIM - Last Filed: 05/08/22 11:35> History Interval history: I saw and evaluated the patient. I agree with the findings and the plan of care as documented in the Nurse Practitioner's~note, with the following corrections and additions. Hospitalist Physical - Constitutional Vitals: Temp Pulse Resp BP Pulse Ox 97.8 F 104 H 12 114/44 99 05/08/22 07:16 05/08/22 11:15 05/08/22 11:15 05/08/22 11:15 05/08/22 11:15 HEART Score - HEART Score Troponin: Troponin T 0.415 ng/mL (0.00-0.029) H* 04/19/22 04:53 Results - Labs CBC & Chem 7: 05/08/22 04:06 05/08/22 04:06 Labs: Laboratory Last Values WBC 6.6 K/mm3 (4.5-11.0) 05/08/22 04:06 RBC 2.87 M/mm3 (3.65-5.03) L 05/08/22 04:06 Hgb 8.2 gm/dl (10.1-14.3) L 05/08/22 04:06 Hct 25.8 % (30.3-42.9) L 05/08/22 04:06 MCV 90 fl (79-97) 05/08/22 04:06 MCH 29 pg (28-32) 05/08/22 04:06 MCHC 32 % (30-34) 05/08/22 04:06 RDW 16.2 % (13.2-15.2) H 05/08/22 04:06 Plt Count 118 K/mm3 (140-440) L 05/08/22 04:06 Lymph % (Auto) 26.7 % (13.4-35.0) 04/20/22 05:30 [place] % (Auto) 15.2 % (0.0-7.3) H 04/20/22 05:30 Eos % (Auto) 3.8 % (0.0-4.3) 04/20/22 05:30 Baso % (Auto) 1.2 % (0.0-1.8) 04/20/22 05:30 Lymph # (Auto) 1.1 K/mm3 (1.2-5.4) L 04/20/22 05:30 [place] # (Auto) 0.6 K/mm3 (0.0-0.8) 04/20/22 05:30 Eos # (Auto) 0.2 K/mm3 (0.0-0.4) 04/20/22 05:30 Baso # (Auto) 0.0 K/mm3 (0.0-0.1) 04/20/22 05:30 Add Manual Diff Complete 05/05/22 04:20 Total Counted 100 05/05/22 04:20 Seg Neutrophils % 53.1 % (40.0-70.0) 04/20/22 05:30 Seg Neuts % (Manual) 86.0 % (40.0-70.0) H 05/05/22 04:20 Band Neutrophils % 3.0 % 05/05/22 04:20 Lymphocytes % (Manual) 4.0 % (13.4-35.0) L 05/05/22 04:20 Reactive Lymphs % (Man) 0 % 05/05/22 04:20 Monocytes % (Manual) 6.0 % (0.0-7.3) 05/05/22 04:20 Eosinophils % (Manual) 1.0 % (0.0-4.3) 05/05/22 04:20 Basophils % (Manual) 0 % (0.0-1.8) 05/05/22 04:20 Metamyelocytes % 0 % 05/05/22 04:20 Myelocytes % 0 % 05/05/22 04:20 Promyelocytes % 0 % 05/05/22 04:20 Blast Cells % 0 % 05/05/22 04:20 Nucleated RBC % 1.0 % (0.0-0.9) H 05/05/22 04:20 Seg Neutrophils # 2.2 K/mm3 (1.8-7.7) 04/20/22 05:30 Seg Neutrophils # Man 11.0 K/mm3 (1.8-7.7) H 05/05/22 04:20 Band Neutrophils # 0.4 K/mm3 05/05/22 04:20 Lymphocytes # (Manual) 0.5 K/mm3 (1.2-5.4) L 05/05/22 04:20 Abs React Lymphs (Man) 0.0 K/mm3 05/05/22 04:20 Monocytes # (Manual) 0.8 K/mm3 (0.0-0.8) 05/05/22 04:20 Eosinophils # (Manual) 0.1 K/mm3 (0.0-0.4) 05/05/22 04:20 Basophils # (Manual) 0.0 K/mm3 (0.0-0.1) 05/05/22 04:20 Metamyelocytes # 0.0 K/mm3 05/05/22 04:20 Myelocytes # 0.0 K/mm3 05/05/22 04:20 Promyelocytes # 0.0 K/mm3 05/05/22 04:20 Blast Cells # 0.0 K/mm3 05/05/22 04:20 WBC Morphology Not Reportable 05/05/22 04:20 Hypersegmented Neuts Not Reportable 05/05/22 04:20 Hyposegmented Neuts Not Reportable 05/05/22 04:20 Hypogranular Neuts Not Reportable 05/05/22 04:20 Smudge Cells Not Reportable 05/05/22 04:20 Toxic Granulation Not Reportable 05/05/22 04:20 Toxic Vacuolation Not Reportable 05/05/22 04:20 Dohle Bodies Not Reportable 05/05/22 04:20 Pel[place]-Huet Anomaly Not Reportable 05/05/22 04:20 Ubaldo Rods Not Reportable 05/05/22 04:20 Platelet Estimate Consistent w auto 05/05/22 04:20 Clumped Platelets Not Reportable 05/05/22 04:20 Plt Clumps, EDTA Not Reportable 05/05/22 04:20 Large Platelets Not Reportable 05/05/22 04:20 Giant Platelets Not Reportable 05/05/22 04:20 Platelet Satelliting Not Reportable 05/05/22 04:20 Plt Morphology Comment Not Reportable 05/05/22 04:20 RBC Morphology Not Reportable 05/05/22 04:20 Dimorphic RBCs Not Reportable 05/05/22 04:20 Polychromasia Not Reportable 05/05/22 04:20 Hypochromasia 2+ 05/05/22 04:20 Poikilocytosis Not Reportable 05/05/22 04:20 Anisocytosis 1+ 05/05/22 04:20 Microcytosis Not Reportable 05/05/22 04:20 Macrocytosis Not Reportable 05/05/22 04:20 Spherocytes Not Reportable 05/05/22 04:20 Pappenheimer Bodies Not Reportable 05/05/22 04:20 Sickle Cells Not Reportable 05/05/22 04:20 Target Cells Not Reportable 05/05/22 04:20 Tear Drop Cells Not Reportable 05/05/22 04:20 Ovalocytes Not Reportable 05/05/22 04:20 Helmet Cells Not Reportable 05/05/22 04:20 [place] Bodies Not Reportable 05/05/22 04:20 [place] Rings Not Reportable 05/05/22 04:20 [place] Cells Not Reportable 05/05/22 04:20 Bite Cells Not Reportable 05/05/22 04:20 Crenated Cell Not Reportable 05/05/22 04:20 Elliptocytes Not Reportable 05/05/22 04:20 Acanthocytes (Spur) Not Reportable 05/05/22 04:20 Rouleaux Not Reportable 05/05/22 04:20 Hemoglobin C Crystals Not Reportable 05/05/22 04:20 Schistocytes Not Reportable 05/05/22 04:20 Malaria parasites Not Reportable 05/05/22 04:20 [place] Bodies Not Reportable 05/05/22 04:20 Hem Pathologist Commnt No 05/05/22 04:20 PT 17.6 Sec. (12.2-14.9) H 05/04/22 04:26 INR 1.29 (0.87-1.13) H 05/04/22 04:26 APTT 39.4 Sec. (24.2-36.6) H 05/03/22 04:24 Heparin Anti-Xa Level < 0.10 U.I./ml (0.3-0.7) L 04/24/22 10:20 ABG pH 7.482 pH Units (7.350-7.450) H 05/08/22 04:40 ABG pCO2 35.2 mm Hg 05/08/22 04:40 ABG pO2 103.9 mm Hg (80.0-90.0) H 05/08/22 04:40 ABG HCO3 25.8 mmol/L (20.0-26.0) 05/08/22 04:40 ABG O2 Saturation 98.0 % (95.0-99.0) 05/08/22 04:40 ABG O2 Content 11.1 (0.0-44) 05/08/22 04:40 ABG Base Excess 2.3 mmol/L (-2.0-3.0) 05/08/22 04:40 ABG Hemoglobin 8.1 gm/dl (12.0-16.0) L 05/08/22 04:40 ABG Carboxyhemoglobin 1.8 % (0.0-5.0) 05/08/22 04:40 ABG Methemoglobin 0.2 % (0.0-1.5) 05/08/22 04:40 Oxyhemoglobin 96.0 % (95.0-99.0) 05/08/22 04:40 FiO2 30 % 05/08/22 04:40 Sodium 132 mmol/L (137-145) L 05/08/22 04:06 Potassium 3.3 mmol/L (3.6-5.0) L 05/08/22 04:06 Chloride 93.2 mmol/L (98-107) L 05/08/22 04:06 Carbon Dioxide 28 mmol/L (22-30) 05/08/22 04:06 Anion Gap 14 mmol/L 05/08/22 04:06 BUN 36 mg/dL (7-17) H 05/08/22 04:06 Creatinine 2.9 mg/dL (0.6-1.2) H 05/08/22 04:06 Estimated GFR 20 ml/min 05/08/22 04:06 BUN/Creatinine Ratio 12 % 05/08/22 04:06 Glucose 145 mg/dL (65-100) H 05/08/22 04:06 POC Glucose 123 mg/dL (70-105) H 05/07/22 23:23 Lactic Acid 1.60 mmol/L (0.7-2.0) 04/19/22 07:14 Calcium 8.9 mg/dL (8.4-10.2) 05/08/22 04:06 Phosphorus 2.00 mg/dL (2.5-4.5) L D 05/08/22 04:06 Magnesium 1.80 mg/dL (1.7-2.3) 05/08/22 04:06 Total Bilirubin 0.30 mg/dL (0.1-1.2) 04/20/22 05:30 AST 11 units/L (5-40) 04/20/22 05:30 ALT 7 units/L (7-56) 04/20/22 05:30 Alkaline Phosphatase 101 units/L (35-129) 04/20/22 05:30 Ammonia 25.0 umol/L (25-60) 04/19/22 04:53 Troponin T 0.415 ng/mL (0.00-0.029) H* 04/19/22 04:53 Total Protein 6.4 g/dL (6.3-8.2) 04/20/22 05:30 Albumin 2.4 g/dL (3.9-5) L 04/20/22 05:30 Albumin/Globulin Ratio 0.6 % 04/20/22 05:30 Procalcitonin 42.42 ng/mL (<0.15) 05/05/22 04:20 TSH 1.700 mlU/mL (0.270-4.200) 04/19/22 04:53 Free T4 0.28 ng/dL (0.76-1.46) L 04/19/22 04:53 Total Cortisol 24.4 mcg/dL () 04/27/22 04:45 Random Vancomycin 9.6 ug/mL (0-40.0) 05/07/22 04:15 Coronavirus (PCR) Negative (Negative) 05/03/22 11:30 Hepatitis A IgM Ab Non-reactive (NonReactive) 04/19/22 04:53 Hep Bs Antigen Non-reactive (Negative) 04/19/22 04:53 Hep B Core IgM Ab Non-reactive (NonReactive) 04/19/22 04:53 Hepatitis C Antibody Non-reactive (NonReactive) 04/19/22 04:53 Blood Type A POSITIVE 05/04/22 05:30 Antibody Screen Negative 05/04/22 05:30 Crossmatch See Detail 05/04/22 05:30 Microbiology: Microbiology 05/04/22 16:30 Peripheral/Venous Blood Culture - Preliminary NO GROWTH AFTER 72 HOURS 05/03/22 10:30 Bronchial Washings - Right Lower Lobe Respiratory Culture - Final Methicillin Resist S. Aureus 05/04/22 16:30 Peripheral/Venous Blood Culture - Preliminary Coag Negative Staphylococcus Cleary/IV: Voiding Method Incontinent Active Medications - Current Medications Current Medications: Generic Name Dose Route Start Last Admin Trade Name Freq PRN Reason Stop Dose Admin Acetaminophen 650 mg 04/22/22 20:12 05/03/22 23:41 Acetaminophen 325 Mg/10.15 Ml Oral Liqd Unit Dose PO 650 mg Q6H PRN Administration Pain MILD(1-3)/Fever >100.5/DRAKE Acetylcysteine 200 mg 05/05/22 14:00 05/08/22 09:15 Acetylcysteine 20% 200 Mg/1 Ml *For Inhalation Use* INHALATION 05/10/22 13:59 200 mg TID CONNOR Administration Albumin Human 25 gm 04/21/22 13:00 04/22/22 16:31 Albumin Human 25% (25 Gm/100 Ml) Inj IV 25 gm BIANCA PRN Administration Hypotension Albuterol 2.5 mg 04/21/22 08:30 04/24/22 16:51 Albuterol 2.5 Mg/3 Ml Nebu IH 2.5 mg Q3HRT PRN Administration Shortness Of Breath Albuterol/Ipratropium 1 ampul 04/21/22 14:00 05/08/22 09:15 Ipratropium/Albuterol Sulfate 3 Ml Ampul.Neb IH 1 ampul TIDRT CONNOR Administration Docusate Sodium 100 mg 05/01/22 22:00 05/08/22 11:27 Docusate Sodium 100 Mg/10 Ml Oral Liqd FEEDTUBE Not Given BID CONNOR Epoetin Lb-epbx 20,000 unit 04/23/22 12:00 05/06/22 19:23 Epoetin Lb-Epbx 20,000 Unit/1 Ml Vial IV 20,000 unit BIANCA PRN Administration HEMODIALYSIS Fentanyl 50 mcg 05/03/22 10:29 05/05/22 12:23 Fentanyl 100 Mcg/2 Ml Inj IV 25 mcg Q10MIN PRN Administration ANALGESIA Sodium Chloride 100 mls @ 999 mls/hr 04/22/22 09:12 Nacl 0.9% IV BIANCA PRN Hypotension Fentanyl Citrate 2,000 mcg in 100 mls @ 2.722 mls/hr 05/03/22 11:00 Fentanyl Drip Premix IV TITR CONNOR Protocol 1 MCG/KG/HR NORepinephrine/NS 8 MG-250 ML 8 mg in 250 mls @ 3.75 mls/hr 05/03/22 13:15 05/06/22 10:06 Norepinephrine/Ns 8 Mg-250 Ml (Double Conc) IV 0 mcg/min TITRATE CONNOR 0 mls/hr Titration Protocol 2 MCG/MIN Vasopressin 20 unit/ Sodium 101 mls @ 9.09 mls/hr 05/04/22 00:30 05/06/22 11:21 Chloride IV 0 units/min TITR CONNOR 0 mls/hr Infusion 0.03 UNITS/MIN Cefepime HCl 1 gm in 100 mls @ 200 mls/hr 05/04/22 18:00 05/07/22 17:11 Cefepime/Ns 1 Gm/100 Ml IV 200 mls/hr QPM CONNOR Administration Protocol Lansoprazole 30 mg 04/23/22 10:00 05/08/22 10:59 Lansoprazole 30 Mg Solutab FEEDTUBE 30 mg QDAY CONNOR Administration Lorazepam 0.5 mg 04/25/22 09:59 Lorazepam 0.5 Mg Tab FEEDTUBE QDAY PRN Anxiety Memantine 5 mg 04/25/22 10:00 05/08/22 10:57 Memantine 5 Mg Tab FEEDTUBE 5 mg BID CONNOR Administration Metoclopramide HCl 5 mg 04/19/22 09:55 Metoclopramide 10 Mg/2 Ml Inj IV Q6H PRN Nausea And Vomiting Midodrine 20 mg 04/26/22 14:00 05/08/22 10:59 Midodrine 10 Mg Tab FEEDTUBE 20 mg TID CONNOR Administration Naloxone HCl 0.1 mg 04/19/22 09:55 Naloxone 0.4 Mg/1 Ml Inj IV Q2MIN PRN Res Rate </= 8 or 02 SAT < 92% Polyethylene Glycol 17 gm 05/03/22 10:00 05/08/22 11:27 Polyethylene Glycol 3350 17 Gm Powder FEEDTUBE Not Given QDAY OCNNOR Risperidone 0.5 mg 04/25/22 11:00 05/08/22 11:00 Risperidone 1 Mg Tab FEEDTUBE 0.5 mg BID CONNOR Administration Scopolamine 1 each 05/02/22 10:00 05/08/22 11:01 Scopolamine Transdermal Patch 72 Hr TD 1 each Q3D CONNOR Administration Senna 17.2 mg 04/23/22 10:00 05/08/22 11:27 Sennosides 8.6 Mg Tab FEEDTUBE Not Given BID CONNOR Sodium Chloride 10 ml 04/19/22 12:00 05/08/22 11:00 Sodium Chloride 0.9% 10 Ml Flush Syringe IV 10 ml BID CONNOR Administration Sodium Chloride 10 ml 04/19/22 11:19 Sodium Chloride 0.9% 10 Ml Flush Syringe IV PRN PRN LINE FLUSH Sodium Phosphate 250 mg 05/08/22 10:00 05/08/22 10:57 K-Phos Neutral 250 Mg Tab FEEDTUBE 05/09/22 09:59 250 mg QID CONNOR Administration Valproic Acid 750 mg 04/22/22 22:00 05/08/22 10:59 Valproic Acid 250 Mg/5 Ml Oral Liqd FEEDTUBE 750 mg BID CONNOR Administration Nutrition/Malnutrition Assess - Dietary Evaluation Nutrition/Malnutrition Findings: Nutrition Notes Start: 04/19/22 17:39 Freq: Status: Active Protocol: Document 05/05/22 14:44 SHILA (Rec: 05/05/22 14:55 SHILA [id number]) Nutrition Notes Initial or Follow up Reassessment Current Diagnosis CKD (stage V CKD),Sepsis, Respiratory Failure Other Pertinent Diagnosis Neurogenic dysphagia, metabolic encephalopathy, vascular dementia Current Diet No diet order in chart Labs/Tests Na 130 K 3.3 BUN 24 Cr 2.3 BG 163 Phos 1.5 Pertinent Medications Colace, Senokot, Miralax, Levophed gtt, Vasopressin gtt Height 5 ft 2 in Weight 54.43 kg [place] Body Weight (kg) 50.00 BMI 21.9 Weight Status Appropriate Subjective/Other Information PEG placed yesterday. Pt remains on vent and HD support . Observed Nepro infusing at 30ml/hr. No BM documented today. Bronchoscopy performed today. Percent of energy/protein needs met: 104% energy 90% pro Burn Absent Trauma Absent #1 Nutrition Diagnosis Inadequate oral intake, Swallowing difficulty Diagnosis Progress(for reassessment Continues documentation) Is patient on ventilator? Yes Is Patient Ambulatory and/or Out of Bed No REE-([facility]-confined to bed) [phone] Calculation Used for Recommendations [facility] Additional Notes Pro needs >1.2g/kg: >65g/day Fluid needs 1-1.5L/day Nutrition Intervention Nutrition Support: Continue Nepro at 30ml/hr with 130ml water flush q4h. Kcal 1,296 Protein (gm) 58 Carbohydrates (gm) 116 Fat (gm) 69 Fluid (mL) 523 Fiber (gm) 9 Goal #1 TF tolerance Goal #2 TF to meet at least 75% energy and pro needs Follow-Up By: 05/12/22 Additional Comments F/U: stable TF, vent status, wt, BM
--- NOTE | 2022-04-28 16:24 | Progress Note ---
Assessment and Plan Impression: * End stage renal disease * AMS * SVT s/p cardioversion * SIRS * NSTEMI * Hypotension * Anemia secondary to ESRD * Secondary hyperparathyroidism * IJ thrombus Plan: * Will continue hemodialysis prn, last 04/27- plan to continue // if hemodynamically stable * Note plans for potential PEG placement * Minimal UF removal given soft BP- adjust salt baths and temp prn * Dose medications for renal function * cardiology/pulmonary notes reviewed, appreciated * appreciate vascular regarding AVG * continue midodrine given soft BP * keep MAP>65, vasopressors prn * Avoid potential nephrotoxins * Epogen TIW prn * Renal/HD diet * Continue binders prn Subjective Date of service: 04/28/22 Principal diagnosis: AHRF; Shock; AMS; SVT; NSTEMI; ESRD; Protein calorie malnutrition Interval history: Seen in ICU, back on pressor support (Levophed). Resting in bed. Objective - Exam Narrative Exam: General: No acute distress Head: NC/AT Eyes: normal appearance Neck: Normal appearance Chest: coarse lung sounds CV: Regular rate and rhythm, right arm dialysis access Abdomen: Soft, normal bowel sounds, nontender, nondistended Neuro: alert, oriented, no focal deficits - Vital Signs Vital signs: Vital Signs - 12hr 04/28/22 04/28/22 04/28/22 04:30 05:00 05:30 Temperature Pulse Rate 92 H 93 H 100 H Pulse Rate [ Anterior Bilateral Throughout] Pulse Rate [ From Monitor] Respiratory 25 H 21 20 Rate Respiratory Rate [Anterior Bilateral Throughout] Blood Pressure 109/55 99/51 94/57 O2 Sat by Pulse 100 100 100 Oximetry 04/28/22 04/28/22 04/28/22 06:00 06:31 07:00 Temperature Pulse Rate 98 H 102 H 96 H Pulse Rate [ Anterior Bilateral Throughout] Pulse Rate [ From Monitor] Respiratory 26 H 14 17 Rate Respiratory Rate [Anterior Bilateral Throughout] Blood Pressure 116/61 115/64 106/53 O2 Sat by Pulse 99 97 100 Oximetry 04/28/22 04/28/22 04/28/22 07:30 07:41 08:00 Temperature 97.9 F Pulse Rate 102 H 99 H Pulse Rate [ 101 H Anterior Bilateral Throughout] Pulse Rate [ 98 H From Monitor] Respiratory 22 21 Rate Respiratory 18 Rate [Anterior Bilateral Throughout] Blood Pressure 110/67 92/56 O2 Sat by Pulse 100 100 100 Oximetry 04/28/22 04/28/22 04/28/22 08:31 09:00 09:30 Temperature Pulse Rate 97 H 111 H 100 H Pulse Rate [ Anterior Bilateral Throughout] Pulse Rate [ From Monitor] Respiratory 21 25 H 32 H Rate Respiratory Rate [Anterior Bilateral Throughout] Blood Pressure 96/52 115/65 114/61 O2 Sat by Pulse 100 95 97 Oximetry 04/28/22 04/28/22 04/28/22 10:00 10:30 11:00 Temperature Pulse Rate 90 83 84 Pulse Rate [ Anterior Bilateral Throughout] Pulse Rate [ From Monitor] Respiratory 22 19 22 Rate Respiratory Rate [Anterior Bilateral Throughout] Blood Pressure 92/48 108/55 94/43 O2 Sat by Pulse 100 100 99 Oximetry 04/28/22 04/28/22 04/28/22 11:30 12:00 12:30 Temperature 98 F Pulse Rate 110 H 98 H 95 H Pulse Rate [ Anterior Bilateral Throughout] Pulse Rate [ 98 H From Monitor] Respiratory 21 22 21 Rate Respiratory Rate [Anterior Bilateral Throughout] Blood Pressure 96/51 88/49 96/45 O2 Sat by Pulse 96 98 100 Oximetry 04/28/22 04/28/22 04/28/22 13:01 13:30 13:36 Temperature Pulse Rate 89 84 Pulse Rate [ 85 Anterior Bilateral Throughout] Pulse Rate [ From Monitor] Respiratory 21 20 Rate Respiratory 22 Rate [Anterior Bilateral Throughout] Blood Pressure 87/45 79/47 O2 Sat by Pulse 98 100 Oximetry 04/28/22 04/28/22 04/28/22 14:00 14:30 15:00 Temperature Pulse Rate 100 H 93 H 90 Pulse Rate [ Anterior Bilateral Throughout] Pulse Rate [ From Monitor] Respiratory 27 H 22 20 Rate Respiratory Rate [Anterior Bilateral Throughout] Blood Pressure 118/55 94/45 94/50 O2 Sat by Pulse 96 99 100 Oximetry 04/28/22 04/28/22 04/28/22 15:11 15:21 15:30 Temperature Pulse Rate 90 90 91 H Pulse Rate [ Anterior Bilateral Throughout] Pulse Rate [ From Monitor] Respiratory 20 21 20 Rate Respiratory Rate [Anterior Bilateral Throughout] Blood Pressure 94/50 103/51 100/55 O2 Sat by Pulse 100 100 99 Oximetry - Lab 04/28/22 07:54 04/27/22 04:45 Most recent lab results Calcium 9.7 mg/dL (8.4-10.2) 04/27/22 04:45 Phosphorus 2.50 mg/dL (2.5-4.5) 04/24/22 04:00 Magnesium 1.80 mg/dL (1.7-2.3) 04/24/22 04:00 Medications & Allergies - Medications Allergies/Adverse Reactions: Allergies buspirone [From BuSpar] Allergy (Verified 04/18/22 12:22) Unknown Penicillins Allergy (Verified 04/18/22 12:22) Rash corn Adverse Reaction (Verified 04/18/22 12:22) Unknown Home Medications: Home Medications Medication Instructions Recorded Confirmed Last Taken Type Sevelamer Carbonate [Renvela] 0.8 gram PO TIDWM 09/02/20 02/02/22 05/31/21 History HYDROcodone/APAP 5-325 [Shirley 1 each PO Q4HR PRN #30 tablet 05/18/21 02/02/22 U nknown Rx 5-325 mg TAB] ALBUTEROL NEB's [Proventil 0.083% 2.5 mg IH Q3HRT PRN #1 nebu 03/03/22 Unknown Rx NEBS] Clopidogrel [Plavix] 75 mg PO QDAY #90 tablet 03/03/22 Unknown Rx Divalproex [Sarina Serrano] 750 mg PO BID #60 tablet 03/03/22 Unknown Rx LORazepam [Ativan] 1 mg PO DAILY #30 tab 03/03/22 Unknown Rx Memantine Xr [Namenda Xr] 5 mg PO DAILY #30 cap 03/03/22 Unknown Rx Midodrine [Proamatine] 10 mg PO TID #90 tab 03/03/22 Unknown Rx Pantoprazole [Protonix TAB] 40 mg PO DAILY #30 tab 03/03/22 Unknown Rx QUEtiapine [SEROquel] 400 mg PO BID #60 tab 03/03/22 Unknown Rx risperiDONE [RisperDAL] 0.5 mg PO BID #60 tab 03/03/22 Unknown Rx Active Medications: Generic Name Dose Route Start Last Admin Trade Name Freq PRN Reason Stop Dose Admin Acetaminophen 650 mg 04/22/22 20:12 04/24/22 17:55 Acetaminophen 325 Mg/10.15 Ml Oral Liqd Unit Dose PO 650 mg Q6H PRN Administration Pain MILD(1-3)/Fever >100.5/DRAKE Albumin Human 25 gm 04/21/22 13:00 04/22/22 16:31 Albumin Human 25% (25 Gm/100 Ml) Inj IV 25 gm BIANCA PRN Administration Hypotension Albuterol 2.5 mg 04/21/22 08:30 04/24/22 16:51 Albuterol 2.5 Mg/3 Ml Nebu IH 2.5 mg Q3HRT PRN Administration Shortness Of Breath Albuterol/Ipratropium 1 ampul 04/21/22 14:00 04/28/22 13:36 Ipratropium/Albuterol Sulfate 3 Ml Ampul.Neb IH 1 ampul TIDRT CONNOR Administration Epoetin Lb-epbx 20,000 unit 04/23/22 12:00 04/25/22 20:00 Epoetin Lb-Epbx 20,000 Unit/1 Ml Vial IV 20,000 unit BIANCA PRN Administration HEMODIALYSIS Fludrocortisone Acetate 0.05 mg 04/28/22 10:00 04/28/22 10:47 Fludrocortisone 0.1 Mg Tab PO 05/01/22 10:01 0.05 mg QDAY CONNOR Administration NORepinephrine/NS 8 MG-250 ML 8 mg in 250 mls @ 3.75 mls/hr 04/19/22 09:00 04/28/22 11:05 Norepinephrine/Ns 8 Mg-250 Ml (Double Conc) IV Infused TITRATE CONNOR Titration Protocol 2 MCG/MIN Sodium Chloride 100 mls @ 999 mls/hr 04/22/22 09:12 Nacl 0.9% IV BIANCA PRN Hypotension Phenylephrine HCl 100 mg/ 100 mls @ 3 mls/hr 04/27/22 14:00 Sodium Chloride IV TITR CONNOR Protocol 50 MCG/MIN Lansoprazole 30 mg 04/23/22 10:00 04/28/22 10:45 Lansoprazole 30 Mg Solutab FEEDTUBE 30 mg QDAY CONNOR Administration Lorazepam 0.5 mg 04/25/22 09:59 Lorazepam 0.5 Mg Tab FEEDTUBE QDAY PRN Anxiety Memantine 5 mg 04/25/22 10:00 04/28/22 10:45 Memantine 5 Mg Tab FEEDTUBE 5 mg BID CONNOR Administration Metoclopramide HCl 5 mg 04/19/22 09:55 Metoclopramide 10 Mg/2 Ml Inj IV Q6H PRN Nausea And Vomiting Midodrine 20 mg 04/26/22 14:00 04/28/22 14:26 Midodrine 10 Mg Tab FEEDTUBE 20 mg TID CONNOR Administration Naloxone HCl 0.1 mg 04/19/22 09:55 Naloxone 0.4 Mg/1 Ml Inj IV Q2MIN PRN Res Rate </= 8 or 02 SAT < 92% Polyethylene Glycol 17 gm 04/28/22 10:00 04/28/22 10:46 Polyethylene Glycol 3350 17 Gm Powder PO 17 gm QDAY CONNOR Administration Quetiapine Fumarate 200 mg 04/25/22 22:00 04/27/22 21:50 Quetiapine 200 Mg Tab FEEDTUBE 200 mg QHS CONNOR Administration Quetiapine Fumarate 100 mg 04/26/22 10:00 04/28/22 10:46 Quetiapine 100 Mg Tab FEEDTUBE 100 mg QAM CONNOR Administration Risperidone 0.5 mg 04/25/22 11:00 04/28/22 10:46 Risperidone 1 Mg Tab FEEDTUBE 0.5 mg BID CONNOR Administration Senna 17.2 mg 04/23/22 10:00 04/28/22 10:46 Sennosides 8.6 Mg Tab FEEDTUBE 17.2 mg BID CONNOR Administration Sodium Chloride 10 ml 04/19/22 12:00 04/28/22 11:04 Sodium Chloride 0.9% 10 Ml Flush Syringe IV 10 ml BID CONNOR Administration Sodium Chloride 10 ml 04/19/22 11:19 Sodium Chloride 0.9% 10 Ml Flush Syringe IV PRN PRN LINE FLUSH Valproic Acid 750 mg 04/22/22 22:00 04/28/22 10:52 Valproic Acid 250 Mg/5 Ml Oral Liqd FEEDTUBE 750 mg BID CONNOR Administration
[2022-04-28] MEDS: QUEtiapine 200 MG TAB FEEDTUBE SCH (23:08)
[2022-04-29] MEDS: NORepinephrine/NS 8 MG-250 ML 8 MG/250 ML INFUS..BTL IV SCH (04:45)
[2022-04-29] MEDS: MIDODRINE 10 MG TAB FEEDTUBE SCH ×3 (08:06→19:50)
[2022-04-29] MEDS: IPRATROPIUM/ALBUTEROL SULFATE 3 ML AMPUL.NEB IH SCH ×3 (08:34→20:50)
[2022-04-29] MEDS: QUEtiapine 100 MG TAB FEEDTUBE SCH (09:36)
[2022-04-29] MEDS: VALPROIC ACID 250 MG/5 ML ORAL LIQD FEEDTUBE SCH ×2 (09:36→23:39)
[2022-04-29] MEDS: LANSOPRAZOLE 30 MG SOLUTAB FEEDTUBE SCH (09:36)
[2022-04-29] MEDS: POLYETHYLENE GLYCOL 3350 17 GM POWDER PO SCH (09:36)
[2022-04-29] MEDS: risperiDONE 1 MG TAB FEEDTUBE SCH ×2 (09:36→23:39)
[2022-04-29] MEDS: SENNOSIDES 8.6 MG TAB FEEDTUBE SCH ×2 (09:36→23:38)
[2022-04-29] MEDS: FLUDROCORTISONE 0.1 MG TAB PO SCH (09:37)
[2022-04-29] MEDS: MEMANTINE 5 MG TAB FEEDTUBE SCH ×2 (09:38→23:40)
[2022-04-29] MEDS: ACETAMINOPHEN 325 MG/10.15 ML ORAL LIQD UNIT DOSE PO PRN (09:43)
[2022-04-29 12:08] LABS: Hematocrit 26.2 % (30.3-42.9); Hemoglobin 8.6 gm/dl (10.1-14.3); Mean Corpuscular HGB Conc 33 % (30-34); Mean Corpuscular Volume 89 fl (79-97); Platelet Count 187 K/mm3 (140-440); Red Blood Count 2.93 M/mm3 (3.65-5.03); Red Cell Distribution Width 16.8 % (13.2-15.2)
--- NOTE | 2022-04-29 13:36 | Progress Note ---
Assessment and Plan Acute hypoxemic respiratory failure, Acute on Chronic Hypotension Acute on Chronic Metabolic Encephalopathy Possible Shock Syndrome SVT Elevated troponin, Bipolar disorder, Schizophrenia, Hyperkalemia ESRD on hemodialysis, Anemia of chronic disease, Type 2 NSTEMI GERD Subclinical Hypothyroidism Moderate protein caloric malnutrition - continue Fludrocortisone - resume Levophed for target MAP > 60 mmHg - continue enteral nutrition at goal rate as tolerated - awaiting PEG - continue Midodrine at 20 mg po q8h - femoral CVL replaced as no other viable site for access - Albumin 25 gms of 25% solution prn MAP < 60 mmHg - continue HD/UF per nephrology prescription for toxin and volume clearance - continue care as below otherwise; - continue accuchecks with glycemic control per SSI (While critically ill target blood glucose of 140-180 mg/dL; avoid hypoglycemia) - continue supplemental oxygen for target O2 sat's > 90% acutely - aspiration precautions - prn bronchodilators with pulmonary hygiene per RT - avoid nephrotoxins, renally dose all medications - continue to avoid benzodiazepine's, reduce the possibility of delirium - AB's per ID rec's - prn analgesia per pain score - Maintenance of sleep-wake cycle, avoid delirium - G.I. & VTE prophylaxis - PT/OT/ROM exercises - continue mobility protocols for pressure ulcer prophylaxis - Monitor hemodynamics closely - continue other care per attending / other consultants - discharge planning ongoing concurrently .... Re-evaluate in am & prn CONDITION: CRITICAL PROGNOSIS: GUARDED CODE STATUS: FULL CODE The high probability of a clinically significant, sudden or life-threatening deterioration of the [respiratory, cardiovascular, renal & neurologic] system(s) required my full and direct attention, intervention and personal management. The aggregate critical care time was [35] minutes without overlap. Time includes spent on; [x] Data Review and interpretation [x] Patient assessment and monitoring of vital signs [x] Documentation [x] Medication orders and management Subjective Date of service: 04/29/22 Principal diagnosis: AHRF; Shock; AMS; SVT; NSTEMI; ESRD; Protein calorie malnutrition Interval history: Patient is seen today for: Acute hypoxemic respiratory failure; Shock / Hypotension; AMS; SVT; NSTEMI; Schizophrenia; ESRD on Dialysis; Moderate protein caloric malnutrition Seen and examined at bedside; 24hour events reviewed; nursing and respiratory care staff consulted; no adverse overnight events reported to me; resting in bed; Levophed held at 11 am but MAP's trending lower now; started on Fludrocortisone and await AM Cortisol level; remains on tube feeds; somnolent to lethargic at times; denies chesty pain; no N/V/F/C Objective Vital Signs - 12hr 04/29/22 04/29/22 04/29/22 02:00 02:30 03:00 Temperature Pulse Rate 102 H 103 H 106 H Pulse Rate [ Anterior Bilateral Throughout] Pulse Rate [ From Monitor] Respiratory 21 27 H 25 H Rate Respiratory Rate [Anterior Bilateral Throughout] Blood Pressure 101/59 114/61 133/67 O2 Sat by Pulse 99 97 98 Oximetry 04/29/22 04/29/22 04/29/22 03:30 04:00 04:30 Temperature 97.2 F L Pulse Rate 105 H 115 H 105 H Pulse Rate [ Anterior Bilateral Throughout] Pulse Rate [ 102 H From Monitor] Respiratory 25 H 13 47 H Rate Respiratory Rate [Anterior Bilateral Throughout] Blood Pressure 113/73 115/75 104/53 O2 Sat by Pulse 97 94 97 Oximetry 04/29/22 04/29/22 04/29/22 05:00 05:30 06:00 Temperature Pulse Rate 114 H 113 H 107 H Pulse Rate [ Anterior Bilateral Throughout] Pulse Rate [ From Monitor] Respiratory 20 25 H 22 Rate Respiratory Rate [Anterior Bilateral Throughout] Blood Pressure 115/63 117/61 105/49 O2 Sat by Pulse 95 97 99 Oximetry 04/29/22 04/29/22 04/29/22 06:30 07:00 07:30 Temperature Pulse Rate 114 H 116 H 108 H Pulse Rate [ Anterior Bilateral Throughout] Pulse Rate [ From Monitor] Respiratory 24 32 H 40 H Rate Respiratory Rate [Anterior Bilateral Throughout] Blood Pressure 109/76 119/59 103/58 O2 Sat by Pulse 92 94 98 Oximetry 04/29/22 04/29/22 04/29/22 07:45 08:00 08:15 Temperature 99.4 F Pulse Rate 114 H 116 H 121 H Pulse Rate [ Anterior Bilateral Throughout] Pulse Rate [ 115 H From Monitor] Respiratory 28 H 19 15 Rate Respiratory Rate [Anterior Bilateral Throughout] Blood Pressure 120/72 102/58 102/58 O2 Sat by Pulse 96 97 95 Oximetry 04/29/22 04/29/22 04/29/22 08:31 08:34 08:37 Temperature Pulse Rate 129 H Pulse Rate [ 127 H Anterior Bilateral Throughout] Pulse Rate [ From Monitor] Respiratory 34 H Rate Respiratory 20 Rate [Anterior Bilateral Throughout] Blood Pressure 132/84 O2 Sat by Pulse 93 95 Oximetry 04/29/22 04/29/22 04/29/22 08:45 09:00 09:15 Temperature Pulse Rate 115 H 119 H 115 H Pulse Rate [ Anterior Bilateral Throughout] Pulse Rate [ From Monitor] Respiratory 35 H 30 H 28 H Rate Respiratory Rate [Anterior Bilateral Throughout] Blood Pressure 111/67 105/68 119/55 O2 Sat by Pulse 100 95 98 Oximetry 04/29/22 04/29/22 04/29/22 09:30 09:43 09:45 Temperature Pulse Rate 119 H 120 H Pulse Rate [ Anterior Bilateral Throughout] Pulse Rate [ From Monitor] Respiratory 33 H 26 H 29 H Rate Respiratory Rate [Anterior Bilateral Throughout] Blood Pressure 114/70 109/59 O2 Sat by Pulse 95 97 Oximetry 04/29/22 04/29/22 04/29/22 10:00 10:15 10:30 Temperature Pulse Rate 117 H 116 H 115 H Pulse Rate [ Anterior Bilateral Throughout] Pulse Rate [ From Monitor] Respiratory 29 H 30 H 28 H Rate Respiratory Rate [Anterior Bilateral Throughout] Blood Pressure 104/58 101/54 98/52 O2 Sat by Pulse 97 95 97 Oximetry 04/29/22 04/29/22 04/29/22 10:43 10:45 11:00 Temperature Pulse Rate 117 H 120 H Pulse Rate [ Anterior Bilateral Throughout] Pulse Rate [ From Monitor] Respiratory 25 H 27 H 26 H Rate Respiratory Rate [Anterior Bilateral Throughout] Blood Pressure 110/55 109/62 O2 Sat by Pulse 97 95 Oximetry 04/29/22 04/29/22 04/29/22 11:15 11:30 11:45 Temperature Pulse Rate 116 H 115 H 113 H Pulse Rate [ Anterior Bilateral Throughout] Pulse Rate [ From Monitor] Respiratory 26 H 27 H 26 H Rate Respiratory Rate [Anterior Bilateral Throughout] Blood Pressure 104/58 100/46 94/42 O2 Sat by Pulse 96 95 96 Oximetry 04/29/22 04/29/22 04/29/22 12:00 12:15 12:30 Temperature 98.2 F Pulse Rate 113 H 115 H 115 H Pulse Rate [ Anterior Bilateral Throughout] Pulse Rate [ From Monitor] Respiratory 27 H 30 H 20 Rate Respiratory Rate [Anterior Bilateral Throughout] Blood Pressure 95/48 90/50 102/54 O2 Sat by Pulse 92 96 95 Oximetry 04/29/22 04/29/22 04/29/22 12:45 13:00 13:15 Temperature Pulse Rate 111 H 109 H 113 H Pulse Rate [ Anterior Bilateral Throughout] Pulse Rate [ From Monitor] Respiratory 27 H 28 H 31 H Rate Respiratory Rate [Anterior Bilateral Throughout] Blood Pressure 89/49 94/49 99/51 O2 Sat by Pulse 91 96 96 Oximetry 04/29/22 13:30 Temperature Pulse Rate 112 H Pulse Rate [ Anterior Bilateral Throughout] Pulse Rate [ From Monitor] Respiratory 32 H Rate Respiratory Rate [Anterior Bilateral Throughout] Blood Pressure 97/58 O2 Sat by Pulse 94 Oximetry Constitutional: no acute distress Eyes: non-icteric ENT: oropharynx moist Neck: supple, no lymphadenopathy, no JVD Effort: normal Ascultation: Bilateral: diminished breath sounds, rhonchi (scant) Percussion: Bilateral: not dull Cardiovascular: regular rate and rhythm Gastrointestinal: normoactive bowel sounds, soft, non-tender, non-distended Integumentary: normal Extremities: no cyanosis, no edema, pulses normal, no ischemia or petechiae Neurologic: non-focal exam (grossly), pupils equal and round, CN II-XII normal, motor strength normal and Psychiatric: other (flat affect) CBC and BMP: 04/29/22 10:54 04/29/22 10:54 ABG, PT/INR, D-dimer: PT/INR, D-dimer PT 17.9 Sec. (12.2-14.9) H 04/19/22 19:40 INR 1.28 (0.87-1.13) H 04/19/22 19:40 Abnormal lab findings: Abnormal Labs 04/19/22 04/19/22 04/19/22 04:53 04:53 04:53 WBC RBC 3.06 L Hgb 8.6 L Hct 28.0 L RDW 16.3 H Marshall % (Auto) 11.3 H Lymph # (Auto) PT INR APTT Heparin Anti-Xa Level Sodium Potassium 5.1 H Chloride Carbon Dioxide 21 L BUN 94 H Creatinine 6.3 H Glucose POC Glucose Phosphorus Magnesium Troponin T 0.415 H* Albumin 2.7 L Free T4 0.28 L Crossmatch 08/12/0604/19/22 04/20/22 19:40 19:40 05:30 WBC 4.1 L RBC 2.97 L Hgb 8.5 L 8.2 L Hct 27.8 L 27.1 L RDW 17.0 H Marshall % (Auto) 15.2 H Lymph # (Auto) 1.1 L PT 17.9 H INR 1.28 H APTT 199.1 H* Heparin Anti-Xa Level Sodium Potassium Chloride Carbon Dioxide BUN Creatinine Glucose POC Glucose Phosphorus Magnesium Troponin T Albumin Free T4 Crossmatch 04/20/22 04/20/22 04/21/22 05:30 18:23 00:29 WBC RBC Hgb Hct RDW Marshall % (Auto) Lymph # (Auto) PT INR APTT Heparin Anti-Xa Level 0.17 L Sodium Potassium Chloride Carbon Dioxide 21 L BUN 95 H Creatinine 6.6 H Glucose 139 H POC Glucose Phosphorus Magnesium 2.60 H Troponin T Albumin 2.4 L Free T4 Crossmatch 04/21/22 04/21/22 04/22/22 04:00 04:00 03:45 WBC RBC 2.74 L Hgb 7.7 L Hct 24.7 L RDW 16.6 H Marshall % (Auto) Lymph # (Auto) PT INR APTT Heparin Anti-Xa Level < 0.10 L Sodium 133 L Potassium Chloride Carbon Dioxide 20 L BUN 89 H Creatinine 6.6 H Glucose 131 H POC Glucose Phosphorus 6.40 H Magnesium 2.50 H Troponin T Albumin Free T4 Crossmatch 04/22/22 04/22/22 04/22/22 03:45 12:13 14:30 WBC RBC Hgb Hct RDW Marshall % (Auto) Lymph # (Auto) PT INR APTT Heparin Anti-Xa Level 0.11 L 0.11 L Sodium 136 L Potassium Chloride Carbon Dioxide 18 L BUN 90 H Creatinine 6.3 H Glucose 121 H POC Glucose Phosphorus 6.50 H Magnesium Troponin T Albumin Free T4 Crossmatch 04/22/22 04/23/22 04/23/22 23:08 02:17 04:10 WBC RBC Hgb 7.3 L Hct 23.3 L RDW Marshall % (Auto) Lymph # (Auto) PT INR APTT Heparin Anti-Xa Level 0.14 L Sodium Potassium Chloride Carbon Dioxide BUN Creatinine Glucose POC Glucose 153 H Phosphorus Magnesium Troponin T Albumin Free T4 Crossmatch 08/04/0704/23/22 04/23/22 04:10 06:09 23:22 WBC RBC Hgb Hct RDW Marshall % (Auto) Lymph # (Auto) PT INR APTT Heparin Anti-Xa Level Sodium Potassium Chloride Carbon Dioxide BUN 36 H Creatinine 3.4 H Glucose 131 H POC Glucose 141 H 114 H Phosphorus Magnesium Troponin T Albumin Free T4 Crossmatch 04/24/22 04/24/22 04/24/22 02:10 04:00 04:00 WBC RBC 2.48 L Hgb 7.1 L Hct 22.6 L RDW 16.9 H Marshall % (Auto) Lymph # (Auto) PT INR APTT Heparin Anti-Xa Level 0.12 L Sodium 134 L Potassium Chloride Carbon Dioxide BUN 42 H Creatinine 3.9 H Glucose 141 H POC Glucose Phosphorus Magnesium Troponin T Albumin Free T4 Crossmatch 04/24/22 04/24/22 04/24/22 05:03 10:20 11:24 WBC RBC Hgb Hct RDW Marshall % (Auto) Lymph # (Auto) PT INR APTT Heparin Anti-Xa Level < 0.10 L Sodium Potassium Chloride Carbon Dioxide BUN Creatinine Glucose POC Glucose 142 H 144 H Phosphorus Magnesium Troponin T Albumin Free T4 Crossmatch 04/25/22 04/25/22 04/25/22 00:15 04:11 04:11 WBC 4.4 L RBC 2.38 L Hgb 6.7 L Hct 21.7 L RDW 17.2 H Marshall % (Auto) Lymph # (Auto) PT INR APTT Heparin Anti-Xa Level Sodium 134 L Potassium Chloride 97.1 L Carbon Dioxide BUN 47 H Creatinine 4.3 H Glucose 106 H POC Glucose 136 H Phosphorus Magnesium Troponin T Albumin Free T4 Crossmatch 04/25/22 04/25/22 04/25/22 06:01 15:30 22:44 WBC RBC Hgb 8.8 L Hct 28.1 L D RDW Marshall % (Auto) Lymph # (Auto) PT INR APTT Heparin Anti-Xa Level Sodium Potassium Chloride Carbon Dioxide BUN Creatinine Glucose POC Glucose 137 H Phosphorus Magnesium Troponin T Albumin Free T4 Crossmatch See Detail 04/26/22 04/27/22 04/27/22 04:20 04:45 04:45 WBC RBC 2.81 L 3.13 L Hgb 8.0 L 9.0 L Hct 25.4 L 29.1 L RDW 16.2 H 17.4 H Marshall % (Auto) Lymph # (Auto) PT INR APTT Heparin Anti-Xa Level Sodium 131 L Potassium Chloride 93.5 L Carbon Dioxide BUN 44 H Creatinine 3.9 H Glucose 135 H POC Glucose Phosphorus Magnesium Troponin T Albumin Free T4 Crossmatch 04/27/22 04/28/22 04/28/22 23:38 05:26 07:54 WBC 11.1 H RBC 2.40 L Hgb 6.9 L Hct 22.1 L D RDW 17.2 H Marshall % (Auto) Lymph # (Auto) PT INR APTT Heparin Anti-Xa Level Sodium Potassium Chloride Carbon Dioxide BUN Creatinine Glucose POC Glucose 229 H 169 H Phosphorus Magnesium Troponin T Albumin Free T4 Crossmatch 04/28/22 04/28/22 04/29/22 12:31 17:54 00:49 WBC RBC Hgb Hct RDW Marshall % (Auto) Lymph # (Auto) PT INR APTT Heparin Anti-Xa Level Sodium Potassium Chloride Carbon Dioxide BUN Creatinine Glucose POC Glucose 132 H 138 H 189 H Phosphorus Magnesium Troponin T Albumin Free T4 Crossmatch 04/29/22 04/29/22 04/29/22 06:42 10:54 10:54 WBC 11.8 H RBC 2.93 L Hgb 8.6 L Hct 26.2 L RDW 16.8 H Marshall % (Auto) Lymph # (Auto) PT INR APTT Heparin Anti-Xa Level Sodium 129 L Potassium Chloride 91.5 L Carbon Dioxide BUN 46 H Creatinine 3.1 H Glucose 180 H POC Glucose 196 H Phosphorus Magnesium Troponin T Albumin Free T4 Crossmatch 04/29/22 12:03 WBC RBC Hgb Hct RDW Marshall % (Auto) Lymph # (Auto) PT INR APTT Heparin Anti-Xa Level Sodium Potassium Chloride Carbon Dioxide BUN Creatinine Glucose POC Glucose 169 H Phosphorus Magnesium Troponin T Albumin Free T4 Crossmatch Prior PFT's, U/S of legs: other (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
--- NOTE | 2022-04-29 13:50 | Progress Note ---
<NONALORRAINESue - Last Filed: 04/29/22 18:01> Assessment and Plan Assessment and plan: This is a 66-year-old female with HTN, GERD, seizure disorder, vascular dementia, ESRD on HD, chronic hypertension, bipolar, schizophrenia, anxiety admitted with acute hypoxic respiratory failure, acute on chronic hypotension, acute on chronic metabolic encephalopathy and SVT Neuro: h/o vascular dementia, schizophrenia, bipolar, anxiety disorder -Continue home Seroquel at reduced dose -As needed Ativan -Reorientation as needed -Maintain sleep-wake cycle -As needed analgesia -Continue home memantine, respiradol, valproic acid -CT head showed no acute intracranial abnormalities, no significant interval changes -Psych consulted, appreciate recommendations Cardiac: SVT s/p cardioversion, chronic hypotension, NSTEMI type II -Cardiology consulted, appreciate recommendations -Blood pressure monitoring per protocol -vasopressor support with Levophed -MAP goal 60 -OFF this am -Midodrine 20mg TID -Echo 01/31/2022-EF 60 to 65%. Doppler flow pattern suggests impaired LV rela xation. Right ventricle systolic function is normal trace aortic regurgitation. Trace mitral regurgitation. -Lipitor, Plavix Respiratory: Acute hypoxic respiratory failure -CCM consulted, appreciate recommendations -Chest ultrasound shows bilateral pleural effusions, right greater than left -Supplemental oxygen as needed -Pulmonary hygiene -SPO2 monitor per protocol GI: Moderate protein calorie malnutrition -24 hours + 1741 mL -PPI -TF -GI consulted for PEG tube placement -BR: Senokot : ESRD on HD -Nephrology consulted, appreciate recommendations -HD per nephrology -Monitor intake and output -Renally dose medications -Avoid nephrotoxic medications -Epogen 3 times daily -Trend BMP ID: NAD -f/u blood culture -04/19 blood cultures x2 NGTD -Monitor WBC and temperature curve Endo: NAD -Avoid hypoglycemia Heme: Anemia of chronic disease, RIJ thrombus -Vascular surgery consulted, appreciate recommendations -no need for heparin gtt per vascular surgery -Trend CBC -Transfuse hemoglobin less than 7 -s/p 2 unit PRBC -Epogen 3 times daily -SCDs to BLE while in bed The high probability of a clinically significant, sudden or life threatening deterioration of the [multiple] system(s) required my full and direct attention, intervention and personal management. The aggregate critical care time was [60] minutes. This time is in addition to time spent performing reported procedures but includes the following: [x] Data Review and interpretation [x] Patient assessment and monitoring of vital signs [x] Documentation [x] Medication orders and management Disposition Plan: icu Total Time Spent with Patient (Minutes): 60 History Interval history: This is a 66-year-old female with HTN, GERD, seizure disorder, vascular dementia, ESRD on HD (TTS), OA, chronic hypotension, bipolar, schizophrenia, anxiety examined mobility with a resident of [facility] present to the emergency department on 04/19 with altered mental status and for being combative causing her to miss several days of hemodialysis. On presentation patient was found to be more hypertensive than usual and on room air with oxygen saturations in the 90s and she subsequently went into SVT into the 150s requiring cardioversion under conscious sedation. Patient was admitted to the hospital service with acute hypoxic respiratory failure, acute on chronic hypo tension, acute on chronic metabolic encephalopathy, SVT, hyperkalemia, NSTEMI type II to the ICU with consults to CCM, nephrology cardiology and psych. Hospital Course to Date: 04/20: Patient went into Afib with RVR overnight, now on amiodarone gtt per cardio. Patient remains in AFib with RVR this am, HR in the 120-140s. BP marginal on Levophed gtt, currently not a candidate for BB. Midodrine increased to 15mg TID. 2D Echo pending. On heparin gtt per protocol. No HD today per nephro due to hypotension and tachycardia. 04/21: Converted to SR this am, remains on Amiodarone and heparin. Awaiting cardio final recommendations. Still on Levophed gtt for low BP, given patient history of chronic hypotension, Wean pressor for MAP goal of 60s. Patient is pocketing foods, currently NPO, awaiting speech eval and treat. 04/22: Patient passed speech swallow eval yesterday, however, patient is refusing PO intakes including meds. Will insert DHT for nutrition and meds administra tion. Patient remains in SR this am, amiodaron gtt transitioned to PO per cardio. Patient remains on heparin and Levophed gtt. Patient has not received PO midrodrine for 24hrs, resume meds once DHT is inserted. Keep femoral CVC for another 24hrs, anticipating will be able to wean off pressor once patient receive midodrine. Will reassess in the morning. No HD overnight, unable to cannulate AVF, plan to attempt again today per Nephro. Possible IR/Vascular surgery consult if unsuccessful again today. 04/23: Mentation a lot better this am. DHT was inserted, meds resumed and TF initiated. Levophed gtt increased overnight due to worsen hypotension, suspected it is due to sedative agents. Seroquel decreased to 200mg BID and scheduled ativan switched to PRN. Continue midodrine TID and wean off levophed gtt for MAP goal of 60. Patient tolerated HD yesterday, continue iHD per Nephrology. CCM recommendations noted, Chest US ordered for pleural effusion. 04/24: RN instructed to wean Levophed off, goal MAP of 60. Heparin drip stopped due to decreasing hemoglobin. 04/25: had cleared the patient for pured diet which will be started today, hemodialysis planned for today, patient was to be anemic and will receive 1 unit PRBC with HD. We will increase midodrine to 20 mg 3 times daily if patient becomes hypotensive during dialysis. Per CCM. Decrease in seroqoul but will increase if needed 04/26: Patient agreeable to PEG, GI consulted for placement. Femoral line removed 04/27: No acute events reported overnight, patient has been cardiac cleared for PEG tube placement. Possible PEG in the a.m. This afternoon attempted to place IJ CVL which was unsuccessful and Dr. Mcguire ultimately placed femoral CVL for the initiation of Levophed. HD scheduled for today. 04/28: Patient initially started on Levophed yesterday and she received a femoral CVL. 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 Vascular surgery was consulted. Patient also noted to be anemic and received 1 unit PRBC today. 04/29: Possible hemodialysis today, patient was able to be weaned off of Levophed today. Hemoglobin responded well to 1 unit PRBC. Awaiting trach/PEG placement. Patient will not need to be started on heparin drip per vascular surgery. No acute events reported overnight. Hospitalist Physical - Constitutional Vitals: Temp Pulse Resp BP Pulse Ox 98.2 F 112 H 32 H 97/58 94 04/29/22 12:00 04/29/22 13:30 04/29/22 13:30 04/29/22 13:30 04/29/22 13:30 General appearance: Present: no acute distress - EENT Eyes: Present: PERRL, EOM intact ENT: clear oral mucosa - Neck Neck: Present: normal ROM - Respiratory Respiratory effort: normal Respiratory: bilateral: diminished - Cardiovascular Rhythm: regular Heart Sounds: Present: S1 & S2. Absent: systolic murmur, diastolic murmur - Extremities Extremities: no ischemia, pulses intact, pulses symmetrical, normal temperature, normal color Extremity abnormal: edema Peripheral Pulses: within normal limits - Abdominal General gastrointestinal: soft, non-tender, normal bowel sounds - Integumentary Integumentary: Present: warm, dry - Psychiatric Psychiatric: appropriate mood/affect - Neurologic Neurologic: no focal deficits, moves all extremities - Allied Health Allied health notes reviewed: nursing HEART Score - HEART Score Troponin: Troponin T 0.415 ng/mL (0.00-0.029) H* 04/19/22 04:53 Results - Labs CBC & Chem 7: 04/29/22 10:54 04/29/22 10:54 Labs: Laboratory Last Values WBC 11.8 K/mm3 (4.5-11.0) H 04/29/22 10:54 RBC 2.93 M/mm3 (3.65-5.03) L 04/29/22 10:54 Hgb 8.6 gm/dl (10.1-14.3) L 04/29/22 10:54 Hct 26.2 % (30.3-42.9) L 04/29/22 10:54 MCV 89 fl (79-97) 04/29/22 10:54 MCH 29 pg (28-32) 04/29/22 10:54 MCHC 33 % (30-34) 04/29/22 10:54 RDW 16.8 % (13.2-15.2) H 04/29/22 10:54 Plt Count 187 K/mm3 (140-440) 04/29/22 10:54 Lymph % (Auto) 26.7 % (13.4-35.0) 04/20/22 05:30 [place] % (Auto) 15.2 % (0.0-7.3) H 04/20/22 05:30 Eos % (Auto) 3.8 % (0.0-4.3) 04/20/22 05:30 Baso % (Auto) 1.2 % (0.0-1.8) 04/20/22 05:30 Lymph # (Auto) 1.1 K/mm3 (1.2-5.4) L 04/20/22 05:30 [place] # (Auto) 0.6 K/mm3 (0.0-0.8) 04/20/22 05:30 Eos # (Auto) 0.2 K/mm3 (0.0-0.4) 04/20/22 05:30 Baso # (Auto) 0.0 K/mm3 (0.0-0.1) 04/20/22 05:30 Seg Neutrophils % 53.1 % (40.0-70.0) 04/20/22 05:30 Seg Neutrophils # 2.2 K/mm3 (1.8-7.7) 04/20/22 05:30 PT 17.9 Sec. (12.2-14.9) H 04/19/22 19:40 INR 1.28 (0.87-1.13) H 04/19/22 19:40 APTT 199.1 Sec. (24.2-36.6) H* 04/19/22 19:40 Heparin Anti-Xa Level < 0.10 U.I./ml (0.3-0.7) L 04/24/22 10:20 Sodium 129 mmol/L (137-145) L 04/29/22 10:54 Potassium 3.8 mmol/L (3.6-5.0) 04/29/22 10:54 Chloride 91.5 mmol/L (98-107) L 04/29/22 10:54 Carbon Dioxide 26 mmol/L (22-30) 04/29/22 10:54 Anion Gap 15 mmol/L 04/29/22 10:54 BUN 46 mg/dL (7-17) H 04/29/22 10:54 Creatinine 3.1 mg/dL (0.6-1.2) H 04/29/22 10:54 Estimated GFR 18 ml/min 04/29/22 10:54 BUN/Creatinine Ratio 15 % 04/29/22 10:54 Glucose 180 mg/dL (65-100) H 04/29/22 10:54 POC Glucose 169 mg/dL (70-105) H 04/29/22 12:03 Lactic Acid 1.60 mmol/L (0.7-2.0) 04/19/22 07:14 Calcium 9.0 mg/dL (8.4-10.2) 04/29/22 10:54 Phosphorus 2.50 mg/dL (2.5-4.5) 04/24/22 04:00 Magnesium 1.80 mg/dL (1.7-2.3) 04/24/22 04:00 Total Bilirubin 0.30 mg/dL (0.1-1.2) 04/20/22 05:30 AST 11 units/L (5-40) 04/20/22 05:30 ALT 7 units/L (7-56) 04/20/22 05:30 Alkaline Phosphatase 101 units/L (35-129) 04/20/22 05:30 Ammonia 25.0 umol/L (25-60) 04/19/22 04:53 Troponin T 0.415 ng/mL (0.00-0.029) H* 04/19/22 04:53 Total Protein 6.4 g/dL (6.3-8.2) 04/20/22 05:30 Albumin 2.4 g/dL (3.9-5) L 04/20/22 05:30 Albumin/Globulin Ratio 0.6 % 04/20/22 05:30 TSH 1.700 mlU/mL (0.270-4.200) 04/19/22 04:53 Free T4 0.28 ng/dL (0.76-1.46) L 04/19/22 04:53 Hepatitis A IgM Ab Non-reactive (NonReactive) 04/19/22 04:53 Hep Bs Antigen Non-reactive (Negative) 04/19/22 04:53 Hep B Core IgM Ab Non-reactive (NonReactive) 04/19/22 04:53 Hepatitis C Antibody Non-reactive (NonReactive) 04/19/22 04:53 Blood Type A POSITIVE 04/25/22 15:30 Antibody Screen Negative 04/25/22 15:30 Crossmatch See Detail 04/25/22 15:30 Cleary/IV: Voiding Method Incontinent Active Medications - Current Medications Current Medications: Generic Name Dose Route Start Last Admin Trade Name Freq PRN Reason Stop Dose Admin Acetaminophen 650 mg 04/22/22 20:12 04/29/22 09:43 Acetaminophen 325 Mg/10.15 Ml Oral Liqd Unit Dose PO 650 mg Q6H PRN Administration Pain MILD(1-3)/Fever >100.5/DRAKE Albumin Human 25 gm 04/21/22 13:00 04/22/22 16:31 Albumin Human 25% (25 Gm/100 Ml) Inj IV 25 gm BIANCA PRN Administration Hypotension Albuterol 2.5 mg 04/21/22 08:30 04/24/22 16:51 Albuterol 2.5 Mg/3 Ml Nebu IH 2.5 mg Q3HRT PRN Administration Shortness Of Breath Albuterol/Ipratropium 1 ampul 04/21/22 14:00 04/29/22 08:34 Ipratropium/Albuterol Sulfate 3 Ml Ampul.Neb IH 1 ampul TIDRT CONNOR Administration Epoetin Lb-epbx 20,000 unit 04/23/22 12:00 04/25/22 20:00 Epoetin Lb-Epbx 20,000 Unit/1 Ml Vial IV 20,000 unit BIANCA PRN Administration HEMODIALYSIS Fludrocortisone Acetate 0.05 mg 04/28/22 10:00 04/29/22 09:37 Fludrocortisone 0.1 Mg Tab PO 05/01/22 10:01 0.05 mg QDAY CONNOR Administration NORepinephrine/NS 8 MG-250 ML 8 mg in 250 mls @ 3.75 mls/hr 04/19/22 09:00 04/29/22 09:30 Norepinephrine/Ns 8 Mg-250 Ml (Double Conc) IV 2 mcg/min TITRATE CONNOR 3.75 mls/hr Titration Protocol 2 MCG/MIN Sodium Chloride 100 mls @ 999 mls/hr 04/22/22 09:12 Nacl 0.9% IV BIANCA PRN Hypotension Phenylephrine HCl 100 mg/ 100 mls @ 3 mls/hr 04/27/22 14:00 Sodium Chloride IV TITR CONNOR Protocol 50 MCG/MIN Lansoprazole 30 mg 04/23/22 10:00 04/29/22 09:36 Lansoprazole 30 Mg Solutab FEEDTUBE 30 mg QDAY CONNOR Administration Lorazepam 0.5 mg 04/25/22 09:59 Lorazepam 0.5 Mg Tab FEEDTUBE QDAY PRN Anxiety Memantine 5 mg 04/25/22 10:00 04/29/22 09:38 Memantine 5 Mg Tab FEEDTUBE 5 mg BID CONNOR Administration Metoclopramide HCl 5 mg 04/19/22 09:55 Metoclopramide 10 Mg/2 Ml Inj IV Q6H PRN Nausea And Vomiting Midodrine 20 mg 04/26/22 14:00 04/29/22 08:06 Midodrine 10 Mg Tab FEEDTUBE 20 mg TID CONNOR Administration Naloxone HCl 0.1 mg 04/19/22 09:55 Naloxone 0.4 Mg/1 Ml Inj IV Q2MIN PRN Res Rate </= 8 or 02 SAT < 92% Polyethylene Glycol 17 gm 04/28/22 10:00 04/29/22 09:36 Polyethylene Glycol 3350 17 Gm Powder PO 17 gm QDAY CONNOR Administration Quetiapine Fumarate 200 mg 04/25/22 22:00 04/28/22 23:08 Quetiapine 200 Mg Tab FEEDTUBE 200 mg QHS CONNOR Administration Quetiapine Fumarate 100 mg 04/26/22 10:00 04/29/22 09:36 Quetiapine 100 Mg Tab FEEDTUBE 100 mg QAM CONNOR Administration Risperidone 0.5 mg 04/25/22 11:00 04/29/22 09:36 Risperidone 1 Mg Tab FEEDTUBE 0.5 mg BID CONNOR Administration Senna 17.2 mg 04/23/22 10:00 04/29/22 09:36 Sennosides 8.6 Mg Tab FEEDTUBE 17.2 mg BID CONNOR Administration Sodium Chloride 10 ml 04/19/22 12:00 04/29/22 09:38 Sodium Chloride 0.9% 10 Ml Flush Syringe IV 10 ml BID CONNOR Administration Sodium Chloride 10 ml 04/19/22 11:19 Sodium Chloride 0.9% 10 Ml Flush Syringe IV PRN PRN LINE FLUSH Valproic Acid 750 mg 04/22/22 22:00 04/29/22 09:36 Valproic Acid 250 Mg/5 Ml Oral Liqd FEEDTUBE 750 mg BID CONNOR Administration Nutrition/Malnutrition Assess - Dietary Evaluation Nutrition/Malnutrition Findings: Nutrition Notes Start: 04/19/22 17:39 Freq: Status: Active Protocol: Document 04/24/22 14:13 MIRIAN (Rec: 04/24/22 14:54 MIRIAN [id number]) Nutrition Notes Initial or Follow up Reassessment Current Diagnosis CKD (stage V CKD),Hypertension ,Malnutrition Other Pertinent Diagnosis Metabolic Encephalopathy, ESRD +HD, Anemia, NSTEMI II, Hypotension, SIRS,... Current Diet Nepro w/CARBSTEADY @ 30 ml/hr (since D 04/22). Labs/Tests 04/24: Na 134, BUN 42, Crea 3. 9, Glu 141. Pertinent Medications 04/24: Renvela, others nutritionally unremarkable. 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 No body weight change reported in 5 days. Weight Status Appropriate Subjective/Other Information RD consult for TF tolerance/ continuation assessment. TF continues as prescribed, No further information available at the time. WILDLAND FIREFIGHTER notes on 04/21/22 13:28: Swallowing function has been assessed. Patient holds the bolus in the oral cavity for an extended period of time prior to initiating a swallow. This is attributed to her diminished mental acuity. Recommend a pureed diet with thins. However, intake must be monitored closely to ensure she eats a sufficient amount to maintain adequate nutritional support. Will continue to follow to determine if the diet may be upgraded pending her mental status. - END OF NOTE. Pt is on Room Air, O2 saturation @ 95%, according to Physical Assessment History notes. Percent of energy/protein needs met: Prescribed Nepro w/CARBSTEADY @ 30 ml/hr provides for energy /protein needs (1,269 Kcal/58 g) during LOS, 102% Kcal; 89% AA. GI Symptoms None Food Allergy Yes Skin Integrity/Comment Healing Sacral wound, intact. Current % PO Other Minimum of two criteria No Fluid Accumulation N/A Reduced Wrist Liner Strength N/A (non-severe) Protein-Calorie Malnutrition N\A #1 Nutrition Diagnosis Inadequate oral intake Comments: WILDLAND FIREFIGHTER notes on 04/21/22 13:28: Swallowing function has been assessed. Patient holds the bolus in the oral cavity for an extended period of time prior to initiating a swallow. This is attributed to her diminished mental acuity. Recommend a pureed diet with thins. However, intake must be monitored closely to ensure she eats a sufficient amount to maintain adequate nutritional support. Will continue to follow to determine if the diet may be upgraded pending her mental status. - END OF NOTE. Diagnosis Progress(for reassessment Continues documentation) Is patient on ventilator? No Is Patient Ambulatory and/or Out of Bed No REE-([facility]-confined to bed) [phone] Calculation Used for Recommendations [facility] Additional Notes Protein: >1.2 g/Kg ABW; >65 g/ day. Fluids: 1-1.5 L/day, or as per MD. Nutrition Intervention Nutrition Support: Continue Nepro w/CARBSTEADY @ 30 ml/hr. Flush: 130 ml water Q 4 hr, or as per MD. Kcal 1,269 Protein (gm) 58 Carbohydrates (gm) 116 Fat (gm) 58 Fluid (mL) 523 Fiber (gm) 9 % RDI: 102% Kcal; 89% AA. Goal #1 Provide at least 75% of energy /protein needs through Enteral Feeding during LOS. Follow-Up By: 05/01/22 Additional Comments Continue monitoring TF tolerance, vasopressors, and BM. <AMAURY KIM - Last Filed: 05/08/22 11:31> History Interval history: I saw and evaluated the patient. I agree with the findings and the plan of care as documented in the Nurse Practitioner's~note, with the following corrections and additions. Hospitalist Physical - Constitutional Vitals: Temp Pulse Resp BP Pulse Ox 97.8 F 104 H 12 114/44 99 05/08/22 07:16 05/08/22 11:15 05/08/22 11:15 05/08/22 11:15 05/08/22 11:15 HEART Score - HEART Score Troponin: Troponin T 0.415 ng/mL (0.00-0.029) H* 04/19/22 04:53 Results - Labs CBC & Chem 7: 05/08/22 04:06 05/08/22 04:06 Labs: Laboratory Last Values WBC 6.6 K/mm3 (4.5-11.0) 05/08/22 04:06 RBC 2.87 M/mm3 (3.65-5.03) L 05/08/22 04:06 Hgb 8.2 gm/dl (10.1-14.3) L 05/08/22 04:06 Hct 25.8 % (30.3-42.9) L 05/08/22 04:06 MCV 90 fl (79-97) 05/08/22 04:06 MCH 29 pg (28-32) 05/08/22 04:06 MCHC 32 % (30-34) 05/08/22 04:06 RDW 16.2 % (13.2-15.2) H 05/08/22 04:06 Plt Count 118 K/mm3 (140-440) L 05/08/22 04:06 Lymph % (Auto) 26.7 % (13.4-35.0) 04/20/22 05:30 [place] % (Auto) 15.2 % (0.0-7.3) H 04/20/22 05:30 Eos % (Auto) 3.8 % (0.0-4.3) 04/20/22 05:30 Baso % (Auto) 1.2 % (0.0-1.8) 04/20/22 05:30 Lymph # (Auto) 1.1 K/mm3 (1.2-5.4) L 04/20/22 05:30 [place] # (Auto) 0.6 K/mm3 (0.0-0.8) 04/20/22 05:30 Eos # (Auto) 0.2 K/mm3 (0.0-0.4) 04/20/22 05:30 Baso # (Auto) 0.0 K/mm3 (0.0-0.1) 04/20/22 05:30 Add Manual Diff Complete 05/05/22 04:20 Total Counted 100 05/05/22 04:20 Seg Neutrophils % 53.1 % (40.0-70.0) 04/20/22 05:30 Seg Neuts % (Manual) 86.0 % (40.0-70.0) H 05/05/22 04:20 Band Neutrophils % 3.0 % 05/05/22 04:20 Lymphocytes % (Manual) 4.0 % (13.4-35.0) L 05/05/22 04:20 Reactive Lymphs % (Man) 0 % 05/05/22 04:20 Monocytes % (Manual) 6.0 % (0.0-7.3) 05/05/22 04:20 Eosinophils % (Manual) 1.0 % (0.0-4.3) 05/05/22 04:20 Basophils % (Manual) 0 % (0.0-1.8) 05/05/22 04:20 Metamyelocytes % 0 % 05/05/22 04:20 Myelocytes % 0 % 05/05/22 04:20 Promyelocytes % 0 % 05/05/22 04:20 Blast Cells % 0 % 05/05/22 04:20 Nucleated RBC % 1.0 % (0.0-0.9) H 05/05/22 04:20 Seg Neutrophils # 2.2 K/mm3 (1.8-7.7) 04/20/22 05:30 Seg Neutrophils # Man 11.0 K/mm3 (1.8-7.7) H 05/05/22 04:20 Band Neutrophils # 0.4 K/mm3 05/05/22 04:20 Lymphocytes # (Manual) 0.5 K/mm3 (1.2-5.4) L 05/05/22 04:20 Abs React Lymphs (Man) 0.0 K/mm3 05/05/22 04:20 Monocytes # (Manual) 0.8 K/mm3 (0.0-0.8) 05/05/22 04:20 Eosinophils # (Manual) 0.1 K/mm3 (0.0-0.4) 05/05/22 04:20 Basophils # (Manual) 0.0 K/mm3 (0.0-0.1) 05/05/22 04:20 Metamyelocytes # 0.0 K/mm3 05/05/22 04:20 Myelocytes # 0.0 K/mm3 05/05/22 04:20 Promyelocytes # 0.0 K/mm3 05/05/22 04:20 Blast Cells # 0.0 K/mm3 05/05/22 04:20 WBC Morphology Not Reportable 05/05/22 04:20 Hypersegmented Neuts Not Reportable 05/05/22 04:20 Hyposegmented Neuts Not Reportable 05/05/22 04:20 Hypogranular Neuts Not Reportable 05/05/22 04:20 Smudge Cells Not Reportable 05/05/22 04:20 Toxic Granulation Not Reportable 05/05/22 04:20 Toxic Vacuolation Not Reportable 05/05/22 04:20 Dohle Bodies Not Reportable 05/05/22 04:20 Pelger-Huet Anomaly Not Reportable 05/05/22 04:20 Ubaldo Rods Not Reportable 05/05/22 04:20 Platelet Estimate Consistent w auto 05/05/22 04:20 Clumped Platelets Not Reportable 05/05/22 04:20 Plt Clumps, EDTA Not Reportable 05/05/22 04:20 Large Platelets Not Reportable 05/05/22 04:20 Giant Platelets Not Reportable 05/05/22 04:20 Platelet Satelliting Not Reportable 05/05/22 04:20 Plt Morphology Comment Not Reportable 05/05/22 04:20 RBC Morphology Not Reportable 05/05/22 04:20 Dimorphic RBCs Not Reportable 05/05/22 04:20 Polychromasia Not Reportable 05/05/22 04:20 Hypochromasia 2+ 05/05/22 04:20 Poikilocytosis Not Reportable 05/05/22 04:20 Anisocytosis 1+ 05/05/22 04:20 Microcytosis Not Reportable 05/05/22 04:20 Macrocytosis Not Reportable 05/05/22 04:20 Spherocytes Not Reportable 05/05/22 04:20 Pappenheimer Bodies Not Reportable 05/05/22 04:20 Sickle Cells Not Reportable 05/05/22 04:20 Target Cells Not Reportable 05/05/22 04:20 Tear Drop Cells Not Reportable 05/05/22 04:20 Ovalocytes Not Reportable 05/05/22 04:20 Helmet Cells Not Reportable 05/05/22 04:20 Rangel-Phenix Bodies Not Reportable 05/05/22 04:20 [place] Rings Not Reportable 05/05/22 04:20 Stacey Cells Not Reportable 05/05/22 04:20 Bite Cells Not Reportable 05/05/22 04:20 Crenated Cell Not Reportable 05/05/22 04:20 Elliptocytes Not Reportable 05/05/22 04:20 Acanthocytes (Spur) Not Reportable 05/05/22 04:20 Rouleaux Not Reportable 05/05/22 04:20 Hemoglobin C Crystals Not Reportable 05/05/22 04:20 Schistocytes Not Reportable 05/05/22 04:20 Malaria parasites Not Reportable 05/05/22 04:20 [place]rey Bodies Not Reportable 05/05/22 04:20 Hem Pathologist Commnt No 05/05/22 04:20 PT 17.6 Sec. (12.2-14.9) H 05/04/22 04:26 INR 1.29 (0.87-1.13) H 05/04/22 04:26 APTT 39.4 Sec. (24.2-36.6) H 05/03/22 04:24 Heparin Anti-Xa Level < 0.10 U.I./ml (0.3-0.7) L 04/24/22 10:20 ABG pH 7.482 pH Units (7.350-7.450) H 05/08/22 04:40 ABG pCO2 35.2 mm Hg 05/08/22 04:40 ABG pO2 103.9 mm Hg (80.0-90.0) H 05/08/22 04:40 ABG HCO3 25.8 mmol/L (20.0-26.0) 05/08/22 04:40 ABG O2 Saturation 98.0 % (95.0-99.0) 05/08/22 04:40 ABG O2 Content 11.1 (0.0-44) 05/08/22 04:40 ABG Base Excess 2.3 mmol/L (-2.0-3.0) 05/08/22 04:40 ABG Hemoglobin 8.1 gm/dl (12.0-16.0) L 05/08/22 04:40 ABG Carboxyhemoglobin 1.8 % (0.0-5.0) 05/08/22 04:40 ABG Methemoglobin 0.2 % (0.0-1.5) 05/08/22 04:40 Oxyhemoglobin 96.0 % (95.0-99.0) 05/08/22 04:40 FiO2 30 % 05/08/22 04:40 Sodium 132 mmol/L (137-145) L 05/08/22 04:06 Potassium 3.3 mmol/L (3.6-5.0) L 05/08/22 04:06 Chloride 93.2 mmol/L (98-107) L 05/08/22 04:06 Carbon Dioxide 28 mmol/L (22-30) 05/08/22 04:06 Anion Gap 14 mmol/L 05/08/22 04:06 BUN 36 mg/dL (7-17) H 05/08/22 04:06 Creatinine 2.9 mg/dL (0.6-1.2) H 05/08/22 04:06 Estimated GFR 20 ml/min 05/08/22 04:06 BUN/Creatinine Ratio 12 % 05/08/22 04:06 Glucose 145 mg/dL (65-100) H 05/08/22 04:06 POC Glucose 123 mg/dL (70-105) H 05/07/22 23:23 Lactic Acid 1.60 mmol/L (0.7-2.0) 04/19/22 07:14 Calcium 8.9 mg/dL (8.4-10.2) 05/08/22 04:06 Phosphorus 2.00 mg/dL (2.5-4.5) L D 05/08/22 04:06 Magnesium 1.80 mg/dL (1.7-2.3) 05/08/22 04:06 Total Bilirubin 0.30 mg/dL (0.1-1.2) 04/20/22 05:30 AST 11 units/L (5-40) 04/20/22 05:30 ALT 7 units/L (7-56) 04/20/22 05:30 Alkaline Phosphatase 101 units/L (35-129) 04/20/22 05:30 Ammonia 25.0 umol/L (25-60) 04/19/22 04:53 Troponin T 0.415 ng/mL (0.00-0.029) H* 04/19/22 04:53 Total Protein 6.4 g/dL (6.3-8.2) 04/20/22 05:30 Albumin 2.4 g/dL (3.9-5) L 04/20/22 05:30 Albumin/Globulin Ratio 0.6 % 04/20/22 05:30 Procalcitonin 42.42 ng/mL (<0.15) 05/05/22 04:20 TSH 1.700 mlU/mL (0.270-4.200) 04/19/22 04:53 Free T4 0.28 ng/dL (0.76-1.46) L 04/19/22 04:53 Total Cortisol 24.4 mcg/dL () 04/27/22 04:45 Random Vancomycin 9.6 ug/mL (0-40.0) 05/07/22 04:15 Coronavirus (PCR) Negative (Negative) 05/03/22 11:30 Hepatitis A IgM Ab Non-reactive (NonReactive) 04/19/22 04:53 Hep Bs Antigen Non-reactive (Negative) 04/19/22 04:53 Hep B Core IgM Ab Non-reactive (NonReactive) 04/19/22 04:53 Hepatitis C Antibody Non-reactive (NonReactive) 04/19/22 04:53 Blood Type A POSITIVE 05/04/22 05:30 Antibody Screen Negative 05/04/22 05:30 Crossmatch See Detail 05/04/22 05:30 Microbiology: Microbiology 05/04/22 16:30 Peripheral/Venous Blood Culture - Preliminary NO GROWTH AFTER 72 HOURS 05/03/22 10:30 Bronchial Washings - Right Lower Lobe Respiratory Culture - Final Methicillin Resist S. Aureus 05/04/22 16:30 Peripheral/Venous Blood Culture - Preliminary Coag Negative Staphylococcus Cleary/IV: Voiding Method Incontinent Active Medications - Current Medications Current Medications: Generic Name Dose Route Start Last Admin Trade Name Freq PRN Reason Stop Dose Admin Acetaminophen 650 mg 04/22/22 20:12 05/03/22 23:41 Acetaminophen 325 Mg/10.15 Ml Oral Liqd Unit Dose PO 650 mg Q6H PRN Administration Pain MILD(1-3)/Fever >100.5/DRAKE Acetylcysteine 200 mg 05/05/22 14:00 05/08/22 09:15 Acetylcysteine 20% 200 Mg/1 Ml *For Inhalation Use* INHALATION 05/10/22 13:59 200 mg TID CONNOR Administration Albumin Human 25 gm 04/21/22 13:00 04/22/22 16:31 Albumin Human 25% (25 Gm/100 Ml) Inj IV 25 gm BIANCA PRN Administration Hypotension Albuterol 2.5 mg 04/21/22 08:30 04/24/22 16:51 Albuterol 2.5 Mg/3 Ml Nebu IH 2.5 mg Q3HRT PRN Administration Shortness Of Breath Albuterol/Ipratropium 1 ampul 04/21/22 14:00 05/08/22 09:15 Ipratropium/Albuterol Sulfate 3 Ml Ampul.Neb IH 1 ampul TIDRT CONNOR Administration Docusate Sodium 100 mg 05/01/22 22:00 05/08/22 11:27 Docusate Sodium 100 Mg/10 Ml Oral Liqd FEEDTUBE Not Given BID CONNOR Epoetin Lb-epbx 20,000 unit 04/23/22 12:00 05/06/22 19:23 Epoetin Lb-Epbx 20,000 Unit/1 Ml Vial IV 20,000 unit BIANCA PRN Administration HEMODIALYSIS Fentanyl 50 mcg 05/03/22 10:29 05/05/22 12:23 Fentanyl 100 Mcg/2 Ml Inj IV 25 mcg Q10MIN PRN Administration ANALGESIA Sodium Chloride 100 mls @ 999 mls/hr 04/22/22 09:12 Nacl 0.9% IV BIANCA PRN Hypotension Fentanyl Citrate 2,000 mcg in 100 mls @ 2.722 mls/hr 05/03/22 11:00 Fentanyl Drip Premix IV TITR CONNOR Protocol 1 MCG/KG/HR NORepinephrine/NS 8 MG-250 ML 8 mg in 250 mls @ 3.75 mls/hr 05/03/22 13:15 05/06/22 10:06 Norepinephrine/Ns 8 Mg-250 Ml (Double Conc) IV 0 mcg/min TITRATE CONNOR 0 mls/hr Titration Protocol 2 MCG/MIN Vasopressin 20 unit/ Sodium 101 mls @ 9.09 mls/hr 05/04/22 00:30 05/06/22 11:21 Chloride IV 0 units/min TITR CONNOR 0 mls/hr Infusion 0.03 UNITS/MIN Cefepime HCl 1 gm in 100 mls @ 200 mls/hr 05/04/22 18:00 05/07/22 17:11 Cefepime/Ns 1 Gm/100 Ml IV 200 mls/hr QPM CONNOR Administration Protocol Lansoprazole 30 mg 04/23/22 10:00 05/08/22 10:59 Lansoprazole 30 Mg Solutab FEEDTUBE 30 mg QDAY CONNOR Administration Lorazepam 0.5 mg 04/25/22 09:59 Lorazepam 0.5 Mg Tab FEEDTUBE QDAY PRN Anxiety Memantine 5 mg 04/25/22 10:00 05/08/22 10:57 Memantine 5 Mg Tab FEEDTUBE 5 mg BID CONNOR Administration Metoclopramide HCl 5 mg 04/19/22 09:55 Metoclopramide 10 Mg/2 Ml Inj IV Q6H PRN Nausea And Vomiting Midodrine 20 mg 04/26/22 14:00 05/08/22 10:59 Midodrine 10 Mg Tab FEEDTUBE 20 mg TID CONNOR Administration Naloxone HCl 0.1 mg 04/19/22 09:55 Naloxone 0.4 Mg/1 Ml Inj IV Q2MIN PRN Res Rate </= 8 or 02 SAT < 92% Polyethylene Glycol 17 gm 05/03/22 10:00 05/08/22 11:27 Polyethylene Glycol 3350 17 Gm Powder FEEDTUBE Not Given QDAY CONNOR Risperidone 0.5 mg 04/25/22 11:00 05/08/22 11:00 Risperidone 1 Mg Tab FEEDTUBE 0.5 mg BID CONNOR Administration Scopolamine 1 each 05/02/22 10:00 05/08/22 11:01 Scopolamine Transdermal Patch 72 Hr TD 1 each Q3D CONNOR Administration Senna 17.2 mg 04/23/22 10:00 05/08/22 11:27 Sennosides 8.6 Mg Tab FEEDTUBE Not Given BID CONNOR Sodium Chloride 10 ml 04/19/22 12:00 05/08/22 11:00 Sodium Chloride 0.9% 10 Ml Flush Syringe IV 10 ml BID CONNOR Administration Sodium Chloride 10 ml 04/19/22 11:19 Sodium Chloride 0.9% 10 Ml Flush Syringe IV PRN PRN LINE FLUSH Sodium Phosphate 250 mg 05/08/22 10:00 05/08/22 10:57 K-Phos Neutral 250 Mg Tab FEEDTUBE 05/09/22 09:59 250 mg QID CONNOR Administration Valproic Acid 750 mg 04/22/22 22:00 05/08/22 10:59 Valproic Acid 250 Mg/5 Ml Oral Liqd FEEDTUBE 750 mg BID CONNOR Administration Nutrition/Malnutrition Assess - Dietary Evaluation Nutrition/Malnutrition Findings: Nutrition Notes Start: 04/19/22 17:39 Freq: Status: Active Protocol: Document 05/05/22 14:44 NHALL (Rec: 05/05/22 14:55 NHALL [id number]) Nutrition Notes Initial or Follow up Reassessment Current Diagnosis CKD (stage V CKD),Sepsis, Respiratory Failure Other Pertinent Diagnosis Neurogenic dysphagia, metabolic encephalopathy, vascular dementia Current Diet No diet order in chart Labs/Tests Na 130 K 3.3 BUN 24 Cr 2.3 BG 163 Phos 1.5 Pertinent Medications Colace, Senokot, Miralax, Levophed gtt, Vasopressin gtt Height 5 ft 2 in Weight 54.43 kg Keavy Body Weight (kg) 50.00 BMI 21.9 Weight Status Appropriate Subjective/Other Information PEG placed yesterday. Pt remains on vent and HD support . Observed Nepro infusing at 30ml/hr. No BM documented today. Bronchoscopy performed today. Percent of energy/protein needs met: 104% energy 90% pro Burn Absent Trauma Absent #1 Nutrition Diagnosis Inadequate oral intake, Swallowing difficulty Diagnosis Progress(for reassessment Continues documentation) Is patient on ventilator? Yes Is Patient Ambulatory and/or Out of Bed No REE-([facility]-confined to bed) [phone] Calculation Used for Recommendations [facility] Additional Notes Pro needs >1.2g/kg: >65g/day Fluid needs 1-1.5L/day Nutrition Intervention Nutrition Support: Continue Nepro at 30ml/hr with 130ml water flush q4h. Kcal 1,296 Protein (gm) 58 Carbohydrates (gm) 116 Fat (gm) 69 Fluid (mL) 523 Fiber (gm) 9 Goal #1 TF tolerance Goal #2 TF to meet at least 75% energy and pro needs Follow-Up By: 05/12/22 Additional Comments F/U: stable TF, vent status, wt, BM
--- NOTE | 2022-04-29 14:31 | Progress Note ---
Assessment and Plan Impression: * End stage renal disease * AMS * SVT s/p cardioversion * SIRS * NSTEMI * Hypotension * Anemia secondary to ESRD * Secondary hyperparathyroidism * IJ thrombus Plan: * Will continue hemodialysis prn, last 04/27- plan to continue // if hemodynamically stable, attempt today * Note plans for potential PEG placement * Minimal UF removal given soft BP- adjust salt baths and temp prn, note sodium 129 * Dose medications for renal function * cardiology/pulmonary notes reviewed, appreciated * appreciate vascular regarding AVG * continue midodrine given soft BP * keep MAP>65, vasopressors prn * Avoid potential nephrotoxins * Epogen TIW prn * Renal/HD diet * Continue binders prn Subjective Date of service: 04/29/22 Principal diagnosis: AHRF; Shock; AMS; SVT; NSTEMI; ESRD; Protein calorie malnutrition Interval history: Seen in ICU, remains on pressor support (Levophed). Resting in bed, lethargic Objective - Exam Narrative Exam: General: No acute distress Head: NC/AT Eyes: normal appearance Neck: Normal appearance Chest: coarse lung sounds CV: Regular rate and rhythm, right arm dialysis access Abdomen: Soft, normal bowel sounds, nontender, nondistended Neuro: alert, oriented, no focal deficits - Vital Signs Vital signs: Vital Signs - 12hr 04/29/22 04/29/22 04/29/22 03:00 03:30 04:00 Temperature 97.2 F L Pulse Rate 106 H 105 H 115 H Pulse Rate [ Anterior Bilateral Throughout] Pulse Rate [ 102 H From Monitor] Respiratory 25 H 25 H 13 Rate Respiratory Rate [Anterior Bilateral Throughout] Blood Pressure 133/67 113/73 115/75 O2 Sat by Pulse 98 97 94 Oximetry 04/29/22 04/29/22 04/29/22 04:30 05:00 05:30 Temperature Pulse Rate 105 H 114 H 113 H Pulse Rate [ Anterior Bilateral Throughout] Pulse Rate [ From Monitor] Respiratory 47 H 20 25 H Rate Respiratory Rate [Anterior Bilateral Throughout] Blood Pressure 104/53 115/63 117/61 O2 Sat by Pulse 97 95 97 Oximetry 04/29/22 04/29/22 04/29/22 06:00 06:30 07:00 Temperature Pulse Rate 107 H 114 H 116 H Pulse Rate [ Anterior Bilateral Throughout] Pulse Rate [ From Monitor] Respiratory 22 24 32 H Rate Respiratory Rate [Anterior Bilateral Throughout] Blood Pressure 105/49 109/76 119/59 O2 Sat by Pulse 99 92 94 Oximetry 04/29/22 04/29/22 04/29/22 07:30 07:45 08:00 Temperature 99.4 F Pulse Rate 108 H 114 H 116 H Pulse Rate [ Anterior Bilateral Throughout] Pulse Rate [ 115 H From Monitor] Respiratory 40 H 28 H 19 Rate Respiratory Rate [Anterior Bilateral Throughout] Blood Pressure 103/58 120/72 102/58 O2 Sat by Pulse 98 96 97 Oximetry 04/29/22 04/29/22 04/29/22 08:15 08:31 08:34 Temperature Pulse Rate 121 H 129 H Pulse Rate [ 127 H Anterior Bilateral Throughout] Pulse Rate [ From Monitor] Respiratory 15 34 H Rate Respiratory 20 Rate [Anterior Bilateral Throughout] Blood Pressure 102/58 132/84 O2 Sat by Pulse 95 93 Oximetry 04/29/22 04/29/22 04/29/22 08:37 08:45 09:00 Temperature Pulse Rate 115 H 119 H Pulse Rate [ Anterior Bilateral Throughout] Pulse Rate [ From Monitor] Respiratory 35 H 30 H Rate Respiratory Rate [Anterior Bilateral Throughout] Blood Pressure 111/67 105/68 O2 Sat by Pulse 95 100 95 Oximetry 04/29/22 04/29/22 04/29/22 09:15 09:30 09:43 Temperature Pulse Rate 115 H 119 H Pulse Rate [ Anterior Bilateral Throughout] Pulse Rate [ From Monitor] Respiratory 28 H 33 H 26 H Rate Respiratory Rate [Anterior Bilateral Throughout] Blood Pressure 119/55 114/70 O2 Sat by Pulse 98 95 Oximetry 04/29/22 04/29/22 04/29/22 09:45 10:00 10:15 Temperature Pulse Rate 120 H 117 H 116 H Pulse Rate [ Anterior Bilateral Throughout] Pulse Rate [ From Monitor] Respiratory 29 H 29 H 30 H Rate Respiratory Rate [Anterior Bilateral Throughout] Blood Pressure 109/59 104/58 101/54 O2 Sat by Pulse 97 97 95 Oximetry 04/29/22 04/29/22 04/29/22 10:30 10:43 10:45 Temperature Pulse Rate 115 H 117 H Pulse Rate [ Anterior Bilateral Throughout] Pulse Rate [ From Monitor] Respiratory 28 H 25 H 27 H Rate Respiratory Rate [Anterior Bilateral Throughout] Blood Pressure 98/52 110/55 O2 Sat by Pulse 97 97 Oximetry 0804/29/22 04/29/22 11:00 11:15 11:30 Temperature Pulse Rate 120 H 116 H 115 H Pulse Rate [ Anterior Bilateral Throughout] Pulse Rate [ From Monitor] Respiratory 26 H 26 H 27 H Rate Respiratory Rate [Anterior Bilateral Throughout] Blood Pressure 109/62 104/58 100/46 O2 Sat by Pulse 95 96 95 Oximetry 04/29/22 04/29/22 04/29/22 11:45 12:00 12:15 Temperature 98.2 F Pulse Rate 113 H 113 H 115 H Pulse Rate [ Anterior Bilateral Throughout] Pulse Rate [ 114 H From Monitor] Respiratory 26 H 27 H 30 H Rate Respiratory Rate [Anterior Bilateral Throughout] Blood Pressure 94/42 95/48 90/50 O2 Sat by Pulse 96 92 96 Oximetry 04/29/22 04/29/22 04/29/22 12:30 12:45 13:00 Temperature Pulse Rate 115 H 111 H 109 H Pulse Rate [ Anterior Bilateral Throughout] Pulse Rate [ From Monitor] Respiratory 20 27 H 28 H Rate Respiratory Rate [Anterior Bilateral Throughout] Blood Pressure 102/54 89/49 94/49 O2 Sat by Pulse 95 91 96 Oximetry 04/29/22 04/29/22 04/29/22 13:15 13:30 14:07 Temperature Pulse Rate 113 H 112 H Pulse Rate [ 110 H Anterior Bilateral Throughout] Pulse Rate [ From Monitor] Respiratory 31 H 32 H Rate Respiratory 20 Rate [Anterior Bilateral Throughout] Blood Pressure 99/51 97/58 O2 Sat by Pulse 96 94 Oximetry - Lab 04/29/22 10:54 04/29/22 10:54 Most recent lab results Calcium 9.0 mg/dL (8.4-10.2) 04/29/22 10:54 Phosphorus 2.50 mg/dL (2.5-4.5) 04/24/22 04:00 Magnesium 1.80 mg/dL (1.7-2.3) 04/24/22 04:00 Medications & Allergies - Medications Allergies/Adverse Reactions: Allergies buspirone [From BuSpar] Allergy (Verified 04/18/22 12:22) Unknown Penicillins Allergy (Verified 04/18/22 12:22) Rash corn Adverse Reaction (Verified 04/18/22 12:22) Unknown Home Medications: Home Medications Medication Instructions Recorded Confirmed Last Taken Type Sevelamer Carbonate [Renvela] 0.8 gram PO TIDWM 09/02/20 02/02/22 05/31/21 History HYDROcodone/APAP 5-325 [[place] 1 each PO Q4HR PRN #30 tablet 05/18/21 02/02/22 Unknown Rx 5-325 mg TAB] ALBUTEROL NEB's [Proventil 0.083% 2.5 mg IH Q3HRT PRN #1 nebu 03/03/22 Unknown Rx NEBS] Clopidogrel [Plavix] 75 mg PO QDAY #90 tablet 03/03/[address] [Depakote Dr] 750 mg PO BID #60 tablet 03/03/22 Unknown Rx LORazepam [Ativan] 1 mg PO DAILY #30 tab 03/03/22 Unknown Rx Memantine Xr [Namenda Xr] 5 mg PO DAILY #30 cap 03/03/22 Unknown Rx Midodrine [Proamatine] 10 mg PO TID #90 tab 03/03/22 Unknown Rx Pantoprazole [Protonix TAB] 40 mg PO DAILY #30 tab 03/03/22 Unknown Rx QUEtiapine [SEROquel] 400 mg PO BID #60 tab 03/03/22 Unknown Rx risperiDONE [RisperDAL] 0.5 mg PO BID #60 tab 03/03/22 Unknown Rx Active Medications: Generic Name Dose Route Start Last Admin Trade Name Freq PRN Reason Stop Dose Admin Acetaminophen 650 mg 04/22/22 20:12 04/29/22 09:43 Acetaminophen 325 Mg/10.15 Ml Oral Liqd Unit Dose PO 650 mg Q6H PRN Administration Pain MILD(1-3)/Fever >100.5/DRAKE Albumin Human 25 gm 04/21/22 13:00 04/22/22 16:31 Albumin Human 25% (25 Gm/100 Ml) Inj IV 25 gm BIANCA PRN Administration Hypotension Albuterol 2.5 mg 04/21/22 08:30 04/24/22 16:51 Albuterol 2.5 Mg/3 Ml Nebu IH 2.5 mg Q3HRT PRN Administration Shortness Of Breath Albuterol/Ipratropium 1 ampul 04/21/22 14:00 04/29/22 14:07 Ipratropium/Albuterol Sulfate 3 Ml Ampul.Neb IH 1 ampul TIDRT CONNOR Administration Epoetin Lb-epbx 20,000 unit 04/23/22 12:00 04/25/22 20:00 Epoetin Lb-Epbx 20,000 Unit/1 Ml Vial IV 20,000 unit BIANCA PRN Administration HEMODIALYSIS Fludrocortisone Acetate 0.05 mg 04/28/22 10:00 04/29/22 09:37 Fludrocortisone 0.1 Mg Tab PO 05/01/22 10:01 0.05 mg QDAY CONNOR Administration NORepinephrine/NS 8 MG-250 ML 8 mg in 250 mls @ 3.75 mls/hr 04/19/22 09:00 04/29/22 09:30 Norepinephrine/Ns 8 Mg-250 Ml (Double Conc) IV 2 mcg/min TITRATE CONNOR 3.75 mls/hr Titration Protocol 2 MCG/MIN Sodium Chloride 100 mls @ 999 mls/hr 04/22/22 09:12 Nacl 0.9% IV BIANCA PRN Hypotension Phenylephrine HCl 100 mg/ 100 mls @ 3 mls/hr 04/27/22 14:00 Sodium Chloride IV TITR CONNOR Protocol 50 MCG/MIN Lansoprazole 30 mg 04/23/22 10:00 04/29/22 09:36 Lansoprazole 30 Mg Solutab FEEDTUBE 30 mg QDAY CONNOR Administration Lorazepam 0.5 mg 04/25/22 09:59 Lorazepam 0.5 Mg Tab FEEDTUBE QDAY PRN Anxiety Memantine 5 mg 04/25/22 10:00 04/29/22 09:38 Memantine 5 Mg Tab FEEDTUBE 5 mg BID CONNOR Administration Metoclopramide HCl 5 mg 04/19/22 09:55 Metoclopramide 10 Mg/2 Ml Inj IV Q6H PRN Nausea And Vomiting Midodrine 20 mg 04/26/22 14:00 04/29/22 08:06 Midodrine 10 Mg Tab FEEDTUBE 20 mg TID CONNOR Administration Naloxone HCl 0.1 mg 04/19/22 09:55 Naloxone 0.4 Mg/1 Ml Inj IV Q2MIN PRN Res Rate </= 8 or 02 SAT < 92% Polyethylene Glycol 17 gm 04/28/22 10:00 04/29/22 09:36 Polyethylene Glycol 3350 17 Gm Powder PO 17 gm QDAY CONNOR Administration Quetiapine Fumarate 200 mg 04/25/22 22:00 04/28/22 23:08 Quetiapine 200 Mg Tab FEEDTUBE 200 mg QHS CONNOR Administration Quetiapine Fumarate 100 mg 04/26/22 10:00 04/29/22 09:36 Quetiapine 100 Mg Tab FEEDTUBE 100 mg QAM CONNOR Administration Risperidone 0.5 mg 04/25/22 11:00 04/29/22 09:36 Risperidone 1 Mg Tab FEEDTUBE 0.5 mg BID CONNOR Administration Senna 17.2 mg 04/23/22 10:00 04/29/22 09:36 Sennosides 8.6 Mg Tab FEEDTUBE 17.2 mg BID CONNOR Administration Sodium Chloride 10 ml 04/19/22 12:00 04/29/22 09:38 Sodium Chloride 0.9% 10 Ml Flush Syringe IV 10 ml BID CONNOR Administration Sodium Chloride 10 ml 04/19/22 11:19 Sodium Chloride 0.9% 10 Ml Flush Syringe IV PRN PRN LINE FLUSH Valproic Acid 750 mg 04/22/22 22:00 04/29/22 09:36 Valproic Acid 250 Mg/5 Ml Oral Liqd FEEDTUBE 750 mg BID CONNOR Administration
[2022-04-29] MEDS: QUEtiapine 200 MG TAB FEEDTUBE SCH (23:39)
[2022-04-30] MEDS: IPRATROPIUM/ALBUTEROL SULFATE 3 ML AMPUL.NEB IH SCH ×3 (08:06→19:47)
[2022-04-30] MEDS: MIDODRINE 10 MG TAB FEEDTUBE SCH ×3 (08:25→21:29)
[2022-04-30] MEDS: QUEtiapine 100 MG TAB FEEDTUBE SCH (09:38)
[2022-04-30] MEDS: POLYETHYLENE GLYCOL 3350 17 GM POWDER PO SCH (09:38)
[2022-04-30] MEDS: SENNOSIDES 8.6 MG TAB FEEDTUBE SCH ×2 (09:38→21:42)
[2022-04-30] MEDS: LANSOPRAZOLE 30 MG SOLUTAB FEEDTUBE SCH (09:38)
[2022-04-30] MEDS: risperiDONE 1 MG TAB FEEDTUBE SCH ×2 (09:38→21:28)
[2022-04-30] MEDS: VALPROIC ACID 250 MG/5 ML ORAL LIQD FEEDTUBE SCH ×2 (09:38→21:29)
[2022-04-30] MEDS: FLUDROCORTISONE 0.1 MG TAB PO SCH (10:10)
[2022-04-30] MEDS: MEMANTINE 5 MG TAB FEEDTUBE SCH ×2 (10:10→21:28)
--- NOTE | 2022-04-30 12:41 | Progress Note ---
<NONALORRAINE - Last Filed: 04/30/22 12:35> Assessment and Plan Assessment and plan: This is a 66-year-old female with HTN, GERD, seizure disorder, vascular dementia, ESRD on HD, chronic hypertension, bipolar, schizophrenia, anxiety admitted with acute hypoxic respiratory failure, acute on chronic hypotension, acute on chronic metabolic encephalopathy and SVT Neuro: h/o vascular dementia, schizophrenia, bipolar, anxiety disorder -Continue home Seroquel at reduced dose -As needed Ativan -Reorientation as needed -Maintain sleep-wake cycle -As needed analgesia -Continue home memantine, respiradol, valproic acid -CT head showed no acute intracranial abnormalities, no significant interval changes -Psych consulted, appreciate recommendations Cardiac: SVT s/p cardioversion, chronic hypotension, NSTEMI type II -Cardiology consulted, appreciate recommendations -Blood pressure monitoring per protocol -s/p vasopressor support with Levophed -f/u cortisol -Fludrocortisone for 4 doses -Midodrine 20mg TID -Echo 01/31/2022-EF 60 to 65%. Doppler flow pattern suggests impaired LV relaxation. Right ventricle systolic function is normal trace aortic regurgitation. Trace mitral regurgitation. -Lipitor, Plavix Respiratory: Acute hypoxic respiratory failure -CCM consulted, appreciate recommendations -Chest ultrasound shows bilateral pleural effusions, right greater than left -Supplemental oxygen as needed -Pulmonary hygiene -SPO2 monitor per protocol GI: Moderate protein calorie malnutrition -24 hours + 1768 mL -PPI -TF -GI consulted for PEG tube placement -BR: Senokot : ESRD on HD -Nephrology consulted, appreciate recommendations -HD per nephrology (TThSat) -Monitor intake and output -Renally dose medications -Avoid nephrotoxic medications -Epogen 3 times daily -Trend BMP ID: NAD -f/u blood culture -04/19 blood cultures x2 NGTD -Monitor WBC and temperature curve Endo: NAD -Avoid hypoglycemia Heme: Anemia of chronic disease, RIJ thrombus (chronic), leukocytosis -Vascular surgery consulted, appreciate recommendations -no need for heparin gtt per vascular surgery -Trend CBC -Transfuse hemoglobin less than 7 -s/p 2 unit PRBC -Epogen 3 times daily -SCDs to BLE while in bed The high probability of a clinically significant, sudden or life threatening deterioration of the [multiple] system(s) required my full and direct attention, intervention and personal management. The aggregate critical care time was [60] minutes. This time is in addition to time spent performing reported procedures but includes the following: [x] Data Review and interpretation [x] Patient assessment and monitoring of vital signs [x] Documentation [x] Medication orders and management Disposition Plan: icu Total Time Spent with Patient (Minutes): 60 History Interval history: This is a 66-year-old female with HTN, GERD, seizure disorder, vascular dementia, ESRD on HD (TTS), OA, chronic hypotension, bipolar, schizophrenia, anxiety examined mobility with a resident of [facility] present to the emergency department on 04/19 with altered mental status and for being combative causing her to miss several days of hemodialysis. On presentation patient was found to be more hypertensive than usual and on room air with oxygen saturations in the 90s and she subsequently went into SVT into the 150s requi ring cardioversion under conscious sedation. Patient was admitted to the hospital service with acute hypoxic respiratory failure, acute on chronic hypotension, acute on chronic metabolic encephalopathy, SVT, hyperkalemia, NSTEMI type II to the ICU with consults to [facility], nephrology cardiology and psych. Hospital Course to Date: 04/20: Patient went into Afib with RVR overnight, now on amiodarone gtt per cardio. Patient remains in AFib with RVR this am, HR in the 120-140s. BP marginal on Levophed gtt, currently not a candidate for BB. Midodrine increased to 15mg TID. 2D Echo pending. On heparin gtt per protocol. No HD today per nephro due to hypotension and tachycardia. 04/21: Converted to SR this am, remains on Amiodarone and heparin. Awaiting cardio final recommendations. Still on Levophed gtt for low BP, given patient history of chronic hypotension, Wean pressor for MAP goal of 60s. Patient is pocketing foods, currently NPO, awaiting speech eval and treat. 04/22: Patient passed speech swallow eval yesterday, however, patient is refusing PO intakes including meds. Will insert DHT for nutrition and meds administration. Patient remains in SR this am, amiodaron gtt transitioned to PO per cardio. Patient remains on heparin and Levophed gtt. Patient has not recei kiara PO midrodrine for 24hrs, resume meds once DHT is inserted. Keep femoral CVC for another 24hrs, anticipating will be able to wean off pressor once patient receive midodrine. Will reassess in the morning. No HD overnight, unable to cannulate AVF, plan to attempt again today per Nephro. Possible IR/Vascular surgery consult if unsuccessful again today. 04/23: Mentation a lot better this am. DHT was inserted, meds resumed and TF initiated. Levophed gtt increased overnight due to worsen hypotension, suspected it is due to sedative agents. Seroquel decreased to 200mg BID and scheduled ativan switched to PRN. Continue midodrine TID and wean off levophed gtt for MAP goal of 60. Patient tolerated HD yesterday, continue iHD per Nephrology. CCM recommendations noted, Chest US ordered for pleural effusion. 04/24: RN instructed to wean Levophed off, goal MAP of 60. Heparin drip stopped due to decreasing hemoglobin. 04/25: ST had cleared the patient for pured diet which will be started today, hem odialysis planned for today, patient was to be anemic and will receive 1 unit PRBC with HD. We will increase midodrine to 20 mg 3 times daily if patient becomes hypotensive during dialysis. Per CCM. Decrease in seroqoul but will increase if needed 04/26: Patient agreeable to PEG, GI consulted for placement. Femoral line removed 04/27: No acute events reported overnight, patient has been cardiac cleared for PEG tube placement. Possible PEG in the a.m. This afternoon attempted to place IJ CVL which was unsuccessful and Dr. Mcguire ultimately placed femoral CVL for the initiation of Levophed. HD scheduled for today. 04/28: Patient initially started on Levophed yesterday and she received a femoral CVL. 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 Vascular surgery was consulted. Patient also noted to be anemic and received 1 unit PRBC today. 04/29: Possible hemodialysis today, patient was able to be weaned off of Levophed today. Hemoglobin responded well to 1 unit PRBC. Awaiting trach/PEG placem ent. Patient will not need to be started on heparin drip per vascular surgery. No acute events reported overnight. 04/30: HD yesterday without removal of fluids, patient needs NT suctioning. Updated son today. Hospitalist Physical - Constitutional Vitals: Temp Pulse Resp BP Pulse Ox 99.6 F 111 H 33 H 113/52 97 04/30/22 08:00 04/30/22 09:15 04/30/22 09:15 04/30/22 09:15 04/30/22 09:15 General appearance: Present: no acute distress - EENT Eyes: Present: PERRL, EOM intact ENT: hearing intact - Neck Neck: Present: normal ROM - Respiratory Respiratory effort: normal Respiratory: bilateral: rhonchi - Cardiovascular Rhythm: regular Heart Sounds: Present: S1 & S2. Absent: systolic murmur, diastolic murmur - Extremities Extremities: no ischemia, pulses intact, pulses symmetrical Extremity abnormal: edema Peripheral Pulses: within normal limits - Abdominal General gastrointestinal: soft, non-tender, non-distended, normal bowel sounds - Integumentary Integumentary: Present: warm, dry - Psychiatric Psychiatric: cooperative - Neurologic Neurologic: moves all extremities - Allied Health Allied health notes reviewed: nursing, RT HEART Score - HEART Score Troponin: Troponin T 0.415 ng/mL (0.00-0.029) H* 04/19/22 04:53 Results - Labs CBC & Chem 7: 04/29/22 10:54 04/29/22 10:54 Labs: Laboratory Last Values WBC 11.8 K/mm3 (4.5-11.0) H 04/29/22 10:54 RBC 2.93 M/mm3 (3.65-5.03) L 04/29/22 10:54 Hgb 8.6 gm/dl (10.1-14.3) L 04/29/22 10:54 Hct 26.2 % (30.3-42.9) L 04/29/22 10:54 MCV 89 fl (79-97) 04/29/22 10:54 MCH 29 pg (28-32) 04/29/22 10:54 MCHC 33 % (30-34) 04/29/22 10:54 RDW 16.8 % (13.2-15.2) H 04/29/22 10:54 Plt Count 187 K/mm3 (140-440) 04/29/22 10:54 Lymph % (Auto) 26.7 % (13.4-35.0) 04/20/22 05:30 [place] % (Auto) 15.2 % (0.0-7.3) H 04/20/22 05:30 Eos % (Auto) 3.8 % (0.0-4.3) 04/20/22 05:30 Baso % (Auto) 1.2 % (0.0-1.8) 04/20/22 05:30 Lymph # (Auto) 1.1 K/mm3 (1.2-5.4) L 04/20/22 05:30 [place] # (Auto) 0.6 K/mm3 (0.0-0.8) 04/20/22 05:30 Eos # (Auto) 0.2 K/mm3 (0.0-0.4) 04/20/22 05:30 Baso # (Auto) 0.0 K/mm3 (0.0-0.1) 04/20/22 05:30 Seg Neutrophils % 53.1 % (40.0-70.0) 04/20/22 05:30 Seg Neutrophils # 2.2 K/mm3 (1.8-7.7) 04/20/22 05:30 PT 17.9 Sec. (12.2-14.9) H 04/19/22 19:40 INR 1.28 (0.87-1.13) H 04/19/22 19:40 APTT 199.1 Sec. (24.2-36.6) H* 04/19/22 19:40 Heparin Anti-Xa Level < 0.10 U.I./ml (0.3-0.7) L 04/24/22 10:20 Sodium 129 mmol/L (137-145) L 04/29/22 10:54 Potassium 3.8 mmol/L (3.6-5.0) 04/29/22 10:54 Chloride 91.5 mmol/L (98-107) L 04/29/22 10:54 Carbon Dioxide 26 mmol/L (22-30) 04/29/22 10:54 Anion Gap 15 mmol/L 04/29/22 10:54 BUN 46 mg/dL (7-17) H 04/29/22 10:54 Creatinine 3.1 mg/dL (0.6-1.2) H 04/29/22 10:54 Estimated GFR 18 ml/min 04/29/22 10:54 BUN/Creatinine Ratio 15 % 04/29/22 10:54 Glucose 180 mg/dL (65-100) H 04/29/22 10:54 POC Glucose 159 mg/dL (70-105) H 04/30/22 11:28 Lactic Acid 1.60 mmol/L (0.7-2.0) 04/19/22 07:14 Calcium 9.0 mg/dL (8.4-10.2) 04/29/22 10:54 Phosphorus 2.50 mg/dL (2.5-4.5) 04/24/22 04:00 Magnesium 1.80 mg/dL (1.7-2.3) 04/24/22 04:00 Total Bilirubin 0.30 mg/dL (0.1-1.2) 04/20/22 05:30 AST 11 units/L (5-40) 04/20/22 05:30 ALT 7 units/L (7-56) 04/20/22 05:30 Alkaline Phosphatase 101 units/L (35-129) 04/20/22 05:30 Ammonia 25.0 umol/L (25-60) 04/19/22 04:53 Troponin T 0.415 ng/mL (0.00-0.029) H* 04/19/22 04:53 Total Protein 6.4 g/dL (6.3-8.2) 04/20/22 05:30 Albumin 2.4 g/dL (3.9-5) L 04/20/22 05:30 Albumin/Globulin Ratio 0.6 % 04/20/22 05:30 TSH 1.700 mlU/mL (0.270-4.200) 04/19/22 04:53 Free T4 0.28 ng/dL (0.76-1.46) L 04/19/22 04:53 Total Cortisol 24.4 mcg/dL () 04/27/22 04:45 Hepatitis A IgM Ab Non-reactive (NonReactive) 04/19/22 04:53 Hep Bs Antigen Non-reactive (Negative) 04/19/22 04:53 Hep B Core IgM Ab Non-reactive (NonReactive) 04/19/22 04:53 Hepatitis C Antibody Non-reactive (NonReactive) 04/19/22 04:53 Blood Type A POSITIVE 04/25/22 15:30 Antibody Screen Negative 04/25/22 15:30 Crossmatch See Detail 04/25/22 15:30 Cleary/IV: Voiding Method Incontinent Active Medications - Current Medications Current Medications: Generic Name Dose Route Start Last Admin Trade Name Freq PRN Reason Stop Dose Admin Acetaminophen 650 mg 04/22/22 20:12 04/29/22 09:43 Acetaminophen 325 Mg/10.15 Ml Oral Liqd Unit Dose PO 650 mg Q6H PRN Administration Pain MILD(1-3)/Fever >100.5/DRAKE Albumin Human 25 gm 04/21/22 13:00 04/22/22 16:31 Albumin Human 25% (25 Gm/100 Ml) Inj IV 25 gm BIANCA PRN Administration Hypotension Albuterol 2.5 mg 04/21/22 08:30 04/24/22 16:51 Albuterol 2.5 Mg/3 Ml Nebu IH 2.5 mg Q3HRT PRN Administration Shortness Of Breath Albuterol/Ipratropium 1 ampul 04/21/22 14:00 04/30/22 08:06 Ipratropium/Albuterol Sulfate 3 Ml Ampul.Neb IH 1 ampul TIDRT CONNOR Administration Epoetin Lb-epbx 20,000 unit 04/23/22 12:00 04/25/22 20:00 Epoetin Lb-Epbx 20,000 Unit/1 Ml Vial IV 20,000 unit BIANCA PRN Administration HEMODIALYSIS Fludrocortisone Acetate 0.05 mg 04/28/22 10:00 04/29/22 09:37 Fludrocortisone 0.1 Mg Tab PO 05/01/22 10:01 0.05 mg QDAY CONNOR Administration NORepinephrine/NS 8 MG-250 ML 8 mg in 250 mls @ 3.75 mls/hr 04/19/22 09:00 04/29/22 09:30 Norepinephrine/Ns 8 Mg-250 Ml (Double Conc) IV 2 mcg/min TITRATE CONNOR 3.75 mls/hr Titration Protocol 2 MCG/MIN Sodium Chloride 100 mls @ 999 mls/hr 04/22/22 09:12 Nacl 0.9% IV BIANCA PRN Hypotension Phenylephrine HCl 100 mg/ 100 mls @ 3 mls/hr 04/27/22 14:00 Sodium Chloride IV TITR CONNOR Protocol 50 MCG/MIN Lansoprazole 30 mg 04/23/22 10:00 04/30/22 09:38 Lansoprazole 30 Mg Solutab FEEDTUBE 30 mg QDAY CONNOR Administration Lorazepam 0.5 mg 04/25/22 09:59 Lorazepam 0.5 Mg Tab FEEDTUBE QDAY PRN Anxiety Memantine 5 mg 04/25/22 10:00 04/29/22 23:40 Memantine 5 Mg Tab FEEDTUBE 5 mg BID CONNOR Administration Metoclopramide HCl 5 mg 04/19/22 09:55 Metoclopramide 10 Mg/2 Ml Inj IV Q6H PRN Nausea And Vomiting Midodrine 20 mg 04/26/22 14:00 04/30/22 08:25 Midodrine 10 Mg Tab FEEDTUBE 20 mg TID CONNOR Administration Naloxone HCl 0.1 mg 04/19/22 09:55 Naloxone 0.4 Mg/1 Ml Inj IV Q2MIN PRN Res Rate </= 8 or 02 SAT < 92% Polyethylene Glycol 17 gm 04/28/22 10:00 04/30/22 09:38 Polyethylene Glycol 3350 17 Gm Powder PO 17 gm QDAY CONNOR Administration Quetiapine Fumarate 200 mg 04/25/22 22:00 04/29/22 23:39 Quetiapine 200 Mg Tab FEEDTUBE 200 mg QHS CONNOR Administration Quetiapine Fumarate 100 mg 04/26/22 10:00 04/30/22 09:38 Quetiapine 100 Mg Tab FEEDTUBE 100 mg QAM CONNOR Administration Risperidone 0.5 mg 04/25/22 11:00 04/30/22 09:38 Risperidone 1 Mg Tab FEEDTUBE 0.5 mg BID CONNOR Administration Senna 17.2 mg 04/23/22 10:00 04/30/22 09:38 Sennosides 8.6 Mg Tab FEEDTUBE 17.2 mg BID CONNOR Administration Sodium Chloride 10 ml 04/19/22 12:00 04/30/22 09:39 Sodium Chloride 0.9% 10 Ml Flush Syringe IV 10 ml BID CONNOR Administration Sodium Chloride 10 ml 04/19/22 11:19 Sodium Chloride 0.9% 10 Ml Flush Syringe IV PRN PRN LINE FLUSH Valproic Acid 750 mg 04/22/22 22:00 04/30/22 09:38 Valproic Acid 250 Mg/5 Ml Oral Liqd FEEDTUBE 750 mg BID CONNOR Administration Nutrition/Malnutrition Assess - Dietary Evaluation Nutrition/Malnutrition Findings: Nutrition Notes Start: 04/19/22 17 :39 Freq: Status: Active Protocol: Document 04/24/22 14:13 MIRIAN (Rec: 04/24/22 14:54 MIRIAN [id number]) Nutrition Notes Initial or Follow up Reassessment Current Diagnosis CKD (stage V CKD),Hypertension ,Malnutrition Other Pertinent Diagnosis Metabolic Encephalopathy, ESRD +HD, Anemia, NSTEMI II, Hypotension, SIRS,... Current Diet Nepro w/CARBSTEADY @ 30 ml/hr (since D 04/22). Labs/Tests 04/24: Na 134, BUN 42, Crea 3. 9, Glu 141. Pertinent Medications 04/24: Renvela, others nutritionally unremarkable. 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 No body weight change reported in 5 days. Weight Status Appropriate Subjective/Other Information RD consult for TF tolerance/ continuation assessment. TF continues as prescribed, No further information available at the time. ENDS BREAKAGE CLERK notes on 04/21/22 13:28: Swallowing function has been assessed. Patient holds the bolus in the oral cavity for an extended period of time prior to initiating a swallow. This is attributed to her diminished mental acuity. Recommend a pureed diet with thins. However, intake must be monitored closely to ensure she eats a sufficient amount to maintain adequate nutritional support. Will continue to follow to determine if the diet may be upgraded pending her mental status. - END OF NOTE. Pt is on Room Air, O2 saturation @ 95%, according to Physical Assessment History notes. Percent of energy/protein needs met: Prescribed Nepro w/CARBSTEADY @ 30 ml/hr provides for energy /protein needs (1,269 Kcal/58 g) during LOS, 102% Kcal; 89% AA. GI Symptoms None Food Allergy Yes Skin Integrity/Comment Healing Sacral wound, intact. 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 Patient holds the bolus in the oral cavity for an extended period of time prior to initiating a swallow. This is attributed to her diminished mental acuity. Recommend a pureed diet with thins. However, intake must be monitored closely to ensure she eats a sufficient amount to maintain adequate nutritional support. Will continue to follow to determine if the diet may be upgraded pending her mental status. - END OF NOTE. Diagnosis Progress(for reassessment Continues documentation) Is patient on ventilator? No Is Patient Ambulatory and/or Out of Bed No REE-([facility] Jeor-confined to bed) [phone] Calculation Used for Recommendations [facility] Additional Notes Protein: >1.2 g/Kg ABW; >65 g/ day. Fluids: 1-1.5 L/day, or as per MD. Nutrition Intervention Nutrition Support: Continue Nepro w/CARBSTEADY @ 30 ml/hr. Flush: 130 ml water Q 4 hr, or as per MD. Kcal 1,269 Protein (gm) 58 Carbohydrates (gm) 116 Fat (gm) 58 Fluid (mL) 523 Fiber (gm) 9 % RDI: 102% Kcal; 89% AA. Goal #1 Provide at least 75% of energy /protein needs through Enteral Feeding during LOS. Follow-Up By: 05/01/22 Additional Comments Continue monitoring TF tolerance, vasopressors, and BM. <AMAURY KIM - Last Filed: 05/08/22 11:27> History Interval history: I saw and evaluated the patient. I agree with the findings and the plan of care as documented in the Nurse Practitioner's~note, with the following corrections and additions. Hospitalist Physical - Constitutional Vitals: Temp Pulse Resp BP Pulse Ox 97.8 F 104 H 12 114/44 99 05/08/22 07:16 05/08/22 11:15 05/08/22 11:15 05/08/22 11:15 05/08/22 11:15 HEART Score - HEART Score Troponin: Troponin T 0.415 ng/mL (0.00-0.029) H* 04/19/22 04:53 Results - Labs CBC & Chem 7: 05/08/22 04:06 05/08/22 04:06 Labs: Laboratory Last Values WBC 6.6 K/mm3 (4.5-11.0) 05/08/22 04:06 RBC 2.87 M/mm3 (3.65-5.03) L 05/08/22 04:06 Hgb 8.2 gm/dl (10.1-14.3) L 05/08/22 04:06 Hct 25.8 % (30.3-42.9) L 05/08/22 04:06 MCV 90 fl (79-97) 05/08/22 04:06 MCH 29 pg (28-32) 05/08/22 04:06 MCHC 32 % (30-34) 05/08/22 04:06 RDW 16.2 % (13.2-15.2) H 05/08/22 04:06 Plt Count 118 K/mm3 (140-440) L 05/08/22 04:06 Lymph % (Auto) 26.7 % (13.4-35.0) 04/20/22 05:30 [place] % (Auto) 15.2 % (0.0-7.3) H 04/20/22 05:30 Eos % (Auto) 3.8 % (0.0-4.3) 04/20/22 05:30 Baso % (Auto) 1.2 % (0.0-1.8) 04/20/22 05:30 Lymph # (Auto) 1.1 K/mm3 (1.2-5.4) L 04/20/22 05:30 [place] # (Auto) 0.6 K/mm3 (0.0-0.8) 04/20/22 05:30 Eos # (Auto) 0.2 K/mm3 (0.0-0.4) 04/20/22 05:30 Baso # (Auto) 0.0 K/mm3 (0.0-0.1) 04/20/22 05:30 Add Manual Diff Complete 05/05/22 04:20 Total Counted 100 05/05/22 04:20 Seg Neutrophils % 53.1 % (40.0-70.0) 04/20/22 05:30 Seg Neuts % (Manual) 86.0 % (40.0-70.0) H 05/05/22 04:20 Band Neutrophils % 3.0 % 05/05/22 04:20 Lymphocytes % (Manual) 4.0 % (13.4-35.0) L 05/05/22 04:20 Reactive Lymphs % (Man) 0 % 05/05/22 04:20 Monocytes % (Manual) 6.0 % (0.0-7.3) 05/05/22 04:20 Eosinophils % (Manual) 1.0 % (0.0-4.3) 05/05/22 04:20 Basophils % (Manual) 0 % (0.0-1.8) 05/05/22 04:20 Metamyelocytes % 0 % 05/05/22 04:20 Myelocytes % 0 % 05/05/22 04:20 Promyelocytes % 0 % 05/05/22 04:20 Blast Cells % 0 % 05/05/22 04:20 Nucleated RBC % 1.0 % (0.0-0.9) H 05/05/22 04:20 Seg Neutrophils # 2.2 K/mm3 (1.8-7.7) 04/20/22 05:30 Seg Neutrophils # Man 11.0 K/mm3 (1.8-7.7) H 05/05/22 04:20 Band Neutrophils # 0.4 K/mm3 05/05/22 04:20 Lymphocytes # (Manual) 0.5 K/mm3 (1.2-5.4) L 05/05/22 04:20 Abs React Lymphs (Man) 0.0 K/mm3 05/05/22 04:20 Monocytes # (Manual) 0.8 K/mm3 (0.0-0.8) 05/05/22 04:20 Eosinophils # (Manual) 0.1 K/mm3 (0.0-0.4) 05/05/22 04:20 Basophils # (Manual) 0.0 K/mm3 (0.0-0.1) 05/05/22 04:20 Metamyelocytes # 0.0 K/mm3 05/05/22 04:20 Myelocytes # 0.0 K/mm3 05/05/22 04:20 Promyelocytes # 0.0 K/mm3 05/05/22 04:20 Blast Cells # 0.0 K/mm3 05/05/22 04:20 WBC Morphology Not Reportable 05/05/22 04:20 Hypersegmented Neuts Not Reportable 05/05/22 04:20 Hyposegmented Neuts Not Reportable 05/05/22 04:20 Hypogranular Neuts Not Reportable 05/05/22 04:20 Smudge Cells Not Reportable 05/05/22 04:20 Toxic Granulation Not Reportable 05/05/22 04:20 Toxic Vacuolation Not Reportable 05/05/22 04:20 Dohle Bodies Not Reportable 05/05/22 04:20 Pelger-Huet Anomaly Not Reportable 05/05/22 04:20 Ubaldo Rods Not Reportable 05/05/22 04:20 Platelet Estimate Consistent w auto 05/05/22 04:20 Clumped Platelets Not Reportable 05/05/22 04:20 Plt Clumps, EDTA Not Reportable 05/05/22 04:20 Large Platelets Not Reportable 05/05/22 04:20 Giant Platelets Not Reportable 05/05/22 04:20 Platelet Satelliting Not Reportable 05/05/22 04:20 Plt Morphology Comment Not Reportable 05/05/22 04:20 RBC Morphology Not Reportable 05/05/22 04:20 Dimorphic RBCs Not Reportable 05/05/22 04:20 Polychromasia Not Reportable 05/05/22 04:20 Hypochromasia 2+ 05/05/22 04:20 Poikilocytosis Not Reportable 05/05/22 04:20 Anisocytosis 1+ 05/05/22 04:20 Microcytosis Not Reportable 05/05/22 04:20 Macrocytosis Not Reportable 05/05/22 04:20 Spherocytes Not Reportable 05/05/22 04:20 Pappenheimer Bodies Not Reportable 05/05/22 04:20 Sickle Cells Not Reportable 05/05/22 04:20 Target Cells Not Reportable 05/05/22 04:20 Tear Drop Cells Not Reportable 05/05/22 04:20 Ovalocytes Not Reportable 05/05/22 04:20 Helmet Cells Not Reportable 05/05/22 04:20 [place] Bodies Not Reportable 05/05/22 04:20 [place] Rings Not Reportable 05/05/22 04:20 [place] Cells Not Reportable 05/05/22 04:20 Bite Cells Not Reportable 05/05/22 04:20 Crenated Cell Not Reportable 05/05/22 04:20 Elliptocytes Not Reportable 05/05/22 04:20 Acanthocytes (Spur) Not Reportable 05/05/22 04:20 Rouleaux Not Reportable 05/05/22 04:20 Hemoglobin C Crystals Not Reportable 05/05/22 04:20 Schistocytes Not Reportable 05/05/22 04:20 Malaria parasites Not Reportable 05/05/22 04:20 [place] Bodies Not Reportable 05/05/22 04:20 Hem Pathologist Commnt No 05/05/22 04:20 PT 17.6 Sec. (12.2-14.9) H 05/04/22 04:26 INR 1.29 (0.87-1.13) H 05/04/22 04:26 APTT 39.4 Sec. (24.2-36.6) H 05/03/22 04:24 Heparin Anti-Xa Level < 0.10 U.I./ml (0.3-0.7) L 04/24/22 10:20 ABG pH 7.482 pH Units (7.350-7.450) H 05/08/22 04:40 ABG pCO2 35.2 mm Hg 05/08/22 04:40 ABG pO2 103.9 mm Hg (80.0-90.0) H 05/08/22 04:40 ABG HCO3 25.8 mmol/L (20.0-26.0) 05/08/22 04:40 ABG O2 Saturation 98.0 % (95.0-99.0) 05/08/22 04:40 ABG O2 Content 11.1 (0.0-44) 05/08/22 04:40 ABG Base Excess 2.3 mmol/L (-2.0-3.0) 05/08/22 04:40 ABG Hemoglobin 8.1 gm/dl (12.0-16.0) L 05/08/22 04:40 ABG Carboxyhemoglobin 1.8 % (0.0-5.0) 05/08/22 04:40 ABG Methemoglobin 0.2 % (0.0-1.5) 05/08/22 04:40 Oxyhemoglobin 96.0 % (95.0-99.0) 05/08/22 04:40 FiO2 30 % 05/08/22 04:40 Sodium 132 mmol/L (137-145) L 05/08/22 04:06 Potassium 3.3 mmol/L (3.6-5.0) L 05/08/22 04:06 Chloride 93.2 mmol/L (98-107) L 05/08/22 04:06 Carbon Dioxide 28 mmol/L (22-30) 05/08/22 04:06 Anion Gap 14 mmol/L 05/08/22 04:06 BUN 36 mg/dL (7-17) H 05/08/22 04:06 Creatinine 2.9 mg/dL (0.6-1.2) H 05/08/22 04:06 Estimated GFR 20 ml/min 05/08/22 04:06 BUN/Creatinine Ratio 12 % 05/08/22 04:06 Glucose 145 mg/dL (65-100) H 05/08/22 04:06 POC Glucose 123 mg/dL (70-105) H 05/07/22 23:23 Lactic Acid 1.60 mmol/L (0.7-2.0) 04/19/22 07:14 Calcium 8.9 mg/dL (8.4-10.2) 05/08/22 04:06 Phosphorus 2.00 mg/dL (2.5-4.5) L D 05/08/22 04:06 Magnesium 1.80 mg/dL (1.7-2.3) 05/08/22 04:06 Total Bilirubin 0.30 mg/dL (0.1-1.2) 04/20/22 05:30 AST 11 units/L (5-40) 04/20/22 05:30 ALT 7 units/L (7-56) 04/20/22 05:30 Alkaline Phosphatase 101 units/L (35-129) 04/20/22 05:30 Ammonia 25.0 umol/L (25-60) 04/19/22 04:53 Troponin T 0.415 ng/mL (0.00-0.029) H* 04/19/22 04:53 Total Protein 6.4 g/dL (6.3-8.2) 04/20/22 05:30 Albumin 2.4 g/dL (3.9-5) L 04/20/22 05:30 Albumin/Globulin Ratio 0.6 % 04/20/22 05:30 Procalcitonin 42.42 ng/mL (<0.15) 05/05/22 04:20 TSH 1.700 mlU/mL (0.270-4.200) 04/19/22 04:53 Free T4 0.28 ng/dL (0.76-1.46) L 04/19/22 04:53 Total Cortisol 24.4 mcg/dL () 04/27/22 04:45 Random Vancomycin 9.6 ug/mL (0-40.0) 05/07/22 04:15 Coronavirus (PCR) Negative (Negative) 05/03/22 11:30 Hepatitis A IgM Ab Non-reactive (NonReactive) 04/19/22 04:53 Hep Bs Antigen Non-reactive (Negative) 04/19/22 04:53 Hep B Core IgM Ab Non-reactive (NonReactive) 04/19/22 04:53 Hepatitis C Antibody Non-reactive (NonReactive) 04/19/22 04:53 Blood Type A POSITIVE 05/04/22 05:30 Antibody Screen Negative 05/04/22 05:30 Crossmatch See Detail 05/04/22 05:30 Microbiology: Microbiology 05/04/22 16:30 Peripheral/Venous Blood Culture - Preliminary NO GROWTH AFTER 72 HOURS 05/03/22 10:30 Bronchial Washings - Right Lower Lobe Respiratory Culture - Final Methicillin Resist S. Aureus 05/04/22 16:30 Peripheral/Venous Blood Culture - Preliminary Coag Negative Staphylococcus Cleary/IV: Voiding Method Incontinent Active Medications - Current Medications Current Medications: Generic Name Dose Route Start Last Admin Trade Name Freq PRN Reason Stop Dose Admin Acetaminophen 650 mg 04/22/22 20:12 05/03/22 23:41 Acetaminophen 325 Mg/10.15 Ml Oral Liqd Unit Dose PO 650 mg Q6H PRN Administration Pain MILD(1-3)/Fever >100.5/DRAKE Acetylcysteine 200 mg 05/05/22 14:00 05/08/22 09:15 Acetylcysteine 20% 200 Mg/1 Ml *For Inhalation Use* INHALATION 05/10/22 13:59 200 mg TID CONNOR Administration Albumin Human 25 gm 04/21/22 13:00 04/22/22 16:31 Albumin Human 25% (25 Gm/100 Ml) Inj IV 25 gm BIANCA PRN Administration Hypotension Albuterol 2.5 mg 04/21/22 08:30 04/24/22 16:51 Albuterol 2.5 Mg/3 Ml Nebu IH 2.5 mg Q3HRT PRN Administration Shortness Of Breath Albuterol/Ipratropium 1 ampul 04/21/22 14:00 05/08/22 09:15 Ipratropium/Albuterol Sulfate 3 Ml Ampul.Neb IH 1 ampul TIDRT CONNOR Administration Docusate Sodium 100 mg 05/01/22 22:00 05/07/22 21:01 Docusate Sodium 100 Mg/10 Ml Oral Liqd FEEDTUBE Not Given BID CONNOR Epoetin Lb-epbx 20,000 unit 04/23/22 12:00 05/06/22 19:23 Epoetin Lb-Epbx 20,000 Unit/1 Ml Vial IV 20,000 unit BIANCA PRN Administration HEMODIALYSIS Fentanyl 50 mcg 05/03/22 10:29 05/05/22 12:23 Fentanyl 100 Mcg/2 Ml Inj IV 25 mcg Q10MIN PRN Administration ANALGESIA Sodium Chloride 100 mls @ 999 mls/hr 04/22/22 09:12 Nacl 0.9% IV BIANCA PRN Hypotension Fentanyl Citrate 2,000 mcg in 100 mls @ 2.722 mls/hr 05/03/22 11:00 Fentanyl Drip Premix IV TITR CONNOR Protocol 1 MCG/KG/HR NORepinephrine/NS 8 MG-250 ML 8 mg in 250 mls @ 3.75 mls/hr 05/03/22 13:15 05/06/22 10:06 Norepinephrine/Ns 8 Mg-250 Ml (Double Conc) IV 0 mcg/min TITRATE CONNOR 0 mls/hr Titration Protocol 2 MCG/MIN Vasopressin 20 unit/ Sodium 101 mls @ 9.09 mls/hr 05/04/22 00:30 05/06/22 11:21 Chloride IV 0 units/min TITR CONNOR 0 mls/hr Infusion 0.03 UNITS/MIN Cefepime HCl 1 gm in 100 mls @ 200 mls/hr 05/04/22 18:00 05/07/22 17:11 Cefepime/Ns 1 Gm/100 Ml IV 200 mls/hr QPM CONNOR Administration Protocol Lansoprazole 30 mg 04/23/22 10:00 05/08/22 10:59 Lansoprazole 30 Mg Solutab FEEDTUBE 30 mg QDAY CONNOR Administration Lorazepam 0.5 mg 04/25/22 09:59 Lorazepam 0.5 Mg Tab FEEDTUBE QDAY PRN Anxiety Memantine 5 mg 04/25/22 10:00 05/08/22 10:57 Memantine 5 Mg Tab FEEDTUBE 5 mg BID CONNOR Administration Metoclopramide HCl 5 mg 04/19/22 09:55 Metoclopramide 10 Mg/2 Ml Inj IV Q6H PRN Nausea And Vomiting Midodrine 20 mg 04/26/22 14:00 05/08/22 10:59 Midodrine 10 Mg Tab FEEDTUBE 20 mg TID CONNOR Administration Naloxone HCl 0.1 mg 04/19/22 09:55 Naloxone 0.4 Mg/1 Ml Inj IV Q2MIN PRN Res Rate </= 8 or 02 SAT < 92% Polyethylene Glycol 17 gm 05/03/22 10:00 05/07/22 09:43 Polyethylene Glycol 3350 17 Gm Powder FEEDTUBE 17 gm QDAY CONNOR Administration Risperidone 0.5 mg 04/25/22 11:00 05/08/22 11:00 Risperidone 1 Mg Tab FEEDTUBE 0.5 mg BID CONNOR Administration Scopolamine 1 each 05/02/22 10:00 05/08/22 11:01 Scopolamine Transdermal Patch 72 Hr TD 1 each Q3D CONNOR Administration Senna 17.2 mg 04/23/22 10:00 05/07/22 21:01 Sennosides 8.6 Mg Tab FEEDTUBE Not Given BID CONNOR Sodium Chloride 10 ml 04/19/22 12:00 05/08/22 11:00 Sodium Chloride 0.9% 10 Ml Flush Syringe IV 10 ml BID CONNOR Administration Sodium Chloride 10 ml 04/19/22 11:19 Sodium Chloride 0.9% 10 Ml Flush Syringe IV PRN PRN LINE FLUSH Sodium Phosphate 250 mg 05/08/22 10:00 05/08/22 10:57 K-Phos Neutral 250 Mg Tab FEEDTUBE 05/09/22 09:59 250 mg QID CONNOR Administration Valproic Acid 750 mg 04/22/22 22:00 05/08/22 10:59 Valproic Acid 250 Mg/5 Ml Oral Liqd FEEDTUBE 750 mg BID CONNOR Administration Nutrition/Malnutrition Assess - Dietary Evaluation Nutrition/Malnutrition Findings: Nutrition Notes Start: 04/19/22 17:39 Freq: Status: Active Protocol: Document 05/05/22 14:44 SHILA (Rec: 05/05/22 14:55 SHILA [id number]) Nutrition Notes Initial or Follow up Reassessment Current Diagnosis CKD (stage V CKD),Sepsis, Respiratory Failure Other Pertinent Diagnosis Neurogenic dysphagia, metabolic encephalopathy, vascular dementia Current Diet No diet order in chart Labs/Tests Na 130 K 3.3 BUN 24 Cr 2.3 BG 163 Phos 1.5 Pertinent Medications Colace, Senokot, Miralax, Levophed gtt, Vasopressin gtt Height 5 ft 2 in Weight 54.43 kg [place] Body Weight (kg) 50.00 BMI 21.9 Weight Status Appropriate Subjective/Other Information PEG placed yesterday. Pt remains on vent and HD support . Observed Nepro infusing at 30ml/hr. No BM documented today. Bronchoscopy performed today. Percent of energy/protein needs met: 104% energy 90% pro Burn Absent Trauma Absent #1 Nutrition Diagnosis Inadequate oral intake, Swallowing difficulty Diagnosis Progress(for reassessment Continues documentation) Is patient on ventilator? Yes Is Patient Ambulatory and/or Out of Bed No REE-([place]-confined to bed) [phone] Calculation Used for Recommendations [facility] Additional Notes Pro needs >1.2g/kg: >65g/day Fluid needs 1-1.5L/day Nutrition Intervention Nutrition Support: Continue Nepro at 30ml/hr with 130ml water flush q4h. Kcal 1,296 Protein (gm) 58 Carbohydrates (gm) 116 Fat (gm) 69 Fluid (mL) 523 Fiber (gm) 9 Goal #1 TF tolerance Goal #2 TF to meet at least 75% energy and pro needs Follow-Up By: 05/12/22 Additional Comments F/U: stable TF, vent status, wt, BM
--- NOTE | 2022-04-30 14:30 | Progress Note ---
Assessment and Plan Acute hypoxemic respiratory failure, Acute on Chronic Hypotension Acute on Chronic Metabolic Encephalopathy Possible Shock Syndrome SVT Elevated troponin, Bipolar disorder, Schizophrenia, Hyperkalemia ESRD on hemodialysis, Anemia of chronic disease, Type 2 NSTEMI GERD Subclinical Hypothyroidism Moderate protein caloric malnutrition - oral suction done at bedside; NT suction ordered - HOB >/= 40 degrees - prn BIPAP - repeat CXR in am re: pleural effusions +/- thoracentesis - goals of care discussion appropriate as she is slowly dwindling - hopefully oxygenates better post next UF session - LTAC evaluation is appropriate - continue care as below otherwise; - prn Levophed for target MAP > 60 mmHg - continue enteral nutrition at goal rate as tolerated - awaiting PEG - continue Midodrine at 20 mg po q8h - femoral CVL replaced as no other viable site for access - Albumin 25 gms of 25% solution prn MAP < 60 mmHg - continue HD/UF per nephrology prescription for toxin and volume clearance - continue Fludrocortisone - continue accuchecks with glycemic control per SSI (While critically ill target blood glucose of 140-180 mg/dL; avoid hypoglycemia) - continue supplemental oxygen for target O2 sat's > 90% acutely - aspiration precautions - prn bronchodilators with pulmonary hygiene per RT - avoid nephrotoxins, renally dose all medications - continue to avoid benzodiazepine's, reduce the possibility of delirium - AB's per ID rec's - prn analgesia per pain score - Maintenance of sleep-wake cycle, avoid delirium - G.I. & VTE prophylaxis - PT/OT/ROM exercises - continue mobility protocols for pressure ulcer prophylaxis - Monitor hemodynamics closely - continue other care per attending / other consultants - discharge planning ongoing concurrently .... Re-evaluate in am & prn CONDITION: CRITICAL PROGNOSIS: GUARDED CODE STATUS: FULL CODE The high probability of a clinically significant, sudden or life-threatening deterioration of the [respiratory, cardiovascular, renal & neurologic] system(s) required my full and direct attention, intervention and personal management. The aggregate critical care time was [34] minutes without overlap. Time includes spent on; [x] Data Review and interpretation [x] Patient assessment and monitoring of vital signs [x] Documentation [x] Medication orders and management Subjective Date of service: 04/30/22 Principal diagnosis: AHRF; Shock; AMS; SVT; NSTEMI; ESRD; Protein calorie malnutrition Interval history: Patient is seen today for: Acute hypoxemic respiratory failure; Shock / Hypotension; AMS; SVT; NSTEMI; Schizophrenia; ESRD on Dialysis; Moderate protein caloric malnutrition Seen and examined at bedside; 24hour events reviewed; nursing and respiratory care staff consulted; no adverse overnight events reported to me; resting in bed; remains off Levophed since yesterday but MAP's soft; some gurgling sounds noted but no N/V reported; somnolent to lethargic; afebrile Objective Vital Signs - 12hr 04/30/22 04/30/22 04/30/22 02:30 02:45 03:00 Temperature Pulse Rate 132 H 131 H 128 H Pulse Rate [ Anterior Bilateral Throughout] Pulse Rate [ From Monitor] Respiratory 32 H 29 H 22 Rate Respiratory Rate [Anterior Bilateral Throughout] Blood Pressure 116/44 100/47 102/45 O2 Sat by Pulse 94 95 95 Oximetry 04/30/22 04/30/22 04/30/22 03:15 03:30 03:45 Temperature Pulse Rate 127 H 127 H 125 H Pulse Rate [ Anterior Bilateral Throughout] Pulse Rate [ From Monitor] Respiratory 25 H 29 H 30 H Rate Respiratory Rate [Anterior Bilateral Throughout] Blood Pressure 88/39 89/40 85/39 O2 Sat by Pulse 96 95 96 Oximetry 04/30/22 04/30/22 04/30/22 04:00 04:16 04:30 Temperature 99.2 F Pulse Rate 125 H 124 H 124 H Pulse Rate [ Anterior Bilateral Throughout] Pulse Rate [ From Monitor] Respiratory 35 H 36 H 32 H Rate Respiratory Rate [Anterior Bilateral Throughout] Blood Pressure 85/39 89/47 97/52 O2 Sat by Pulse 96 93 94 Oximetry 04/30/22 04/30/22 04/30/22 04:45 05:00 05:16 Temperature Pulse Rate 125 H 121 H 122 H Pulse Rate [ Anterior Bilateral Throughout] Pulse Rate [ From Monitor] Respiratory 26 H 19 30 H Rate Respiratory Rate [Anterior Bilateral Throughout] Blood Pressure 95/55 95/55 102/48 O2 Sat by Pulse 95 95 94 Oximetry 04/30/22 04/30/22 04/30/22 05:30 05:45 06:00 Temperature Pulse Rate 124 H 126 H 120 H Pulse Rate [ Anterior Bilateral Throughout] Pulse Rate [ From Monitor] Respiratory 21 32 H 32 H Rate Respiratory Rate [Anterior Bilateral Throughout] Blood Pressure 102/48 72/46 97/46 O2 Sat by Pulse 94 86 96 Oximetry 04/30/22 04/30/22 04/30/22 06:15 06:30 06:45 Temperature Pulse Rate 115 H 113 H 113 H Pulse Rate [ Anterior Bilateral Throughout] Pulse Rate [ From Monitor] Respiratory 25 H 27 H 26 H Rate Respiratory Rate [Anterior Bilateral Throughout] Blood Pressure 101/52 93/39 97/49 O2 Sat by Pulse 91 92 92 Oximetry 04/30/22 04/30/22 04/30/22 07:00 07:15 07:30 Temperature 99.6 F Pulse Rate 112 H 110 H 112 H Pulse Rate [ Anterior Bilateral Throughout] Pulse Rate [ From Monitor] Respiratory 27 H 28 H 29 H Rate Respiratory Rate [Anterior Bilateral Throughout] Blood Pressure 90/49 94/49 104/48 O2 Sat by Pulse 92 94 93 Oximetry 04/30/22 04/30/22 04/30/22 07:45 08:00 08:06 Temperature 99.6 F Pulse Rate 115 H 115 H Pulse Rate [ 114 H Anterior Bilateral Throughout] Pulse Rate [ 115 H From Monitor] Respiratory 25 H 27 H Rate Respiratory 18 Rate [Anterior Bilateral Throughout] Blood Pressure 102/52 102/52 O2 Sat by Pulse 98 97 Oximetry 04/30/22 04/30/22 04/30/22 08:09 08:16 08:30 Temperature Pulse Rate 111 H 109 H Pulse Rate [ Anterior Bilateral Throughout] Pulse Rate [ From Monitor] Respiratory 26 H 26 H Rate Respiratory Rate [Anterior Bilateral Throughout] Blood Pressure 84/56 97/47 O2 Sat by Pulse 96 100 94 Oximetry 04/30/22 04/30/22 04/30/22 08:45 09:00 09:15 Temperature Pulse Rate 108 H 110 H 111 H Pulse Rate [ Anterior Bilateral Throughout] Pulse Rate [ From Monitor] Respiratory 27 H 29 H 33 H Rate Respiratory Rate [Anterior Bilateral Throughout] Blood Pressure 92/41 99/57 113/52 O2 Sat by Pulse 92 93 97 Oximetry 04/30/22 04/30/22 04/30/22 09:30 09:45 10:00 Temperature Pulse Rate 113 H 114 H 111 H Pulse Rate [ Anterior Bilateral Throughout] Pulse Rate [ From Monitor] Respiratory 25 H 33 H 29 H Rate Respiratory Rate [Anterior Bilateral Throughout] Blood Pressure 113/75 114/41 104/51 O2 Sat by Pulse 96 96 98 Oximetry 04/30/22 04/30/22 04/30/22 10:15 10:30 10:45 Temperature Pulse Rate 108 H 109 H 109 H Pulse Rate [ Anterior Bilateral Throughout] Pulse Rate [ From Monitor] Respiratory 28 H 33 H 36 H Rate Respiratory Rate [Anterior Bilateral Throughout] Blood Pressure 96/48 93/51 103/58 O2 Sat by Pulse 91 90 89 Oximetry 04/30/22 04/30/22 04/30/22 11:00 11:15 11:30 Temperature Pulse Rate 110 H 111 H 109 H Pulse Rate [ Anterior Bilateral Throughout] Pulse Rate [ From Monitor] Respiratory 31 H 34 H 33 H Rate Respiratory Rate [Anterior Bilateral Throughout] Blood Pressure 103/58 115/54 97/52 O2 Sat by Pulse 90 88 88 Oximetry 04/30/22 04/30/22 04/30/22 11:45 12:00 12:15 Temperature Pulse Rate 108 H 111 H 112 H Pulse Rate [ Anterior Bilateral Throughout] Pulse Rate [ From Monitor] Respiratory 29 H 37 H 35 H Rate Respiratory Rate [Anterior Bilateral Throughout] Blood Pressure 92/52 99/57 103/61 O2 Sat by Pulse 88 91 96 Oximetry 04/30/22 04/30/22 04/30/22 12:30 12:38 12:45 Temperature 97.6 F Pulse Rate 113 H 109 H Pulse Rate [ Anterior Bilateral Throughout] Pulse Rate [ From Monitor] Respiratory 41 H 26 H Rate Respiratory Rate [Anterior Bilateral Throughout] Blood Pressure 110/55 92/40 O2 Sat by Pulse 87 95 Oximetry 04/30/22 04/30/22 04/30/22 13:00 13:15 13:30 Temperature Pulse Rate 111 H 111 H 111 H Pulse Rate [ Anterior Bilateral Throughout] Pulse Rate [ From Monitor] Respiratory 36 H 39 H 29 H Rate Respiratory Rate [Anterior Bilateral Throughout] Blood Pressure 102/48 97/57 102/56 O2 Sat by Pulse 97 93 95 Oximetry 04/30/22 04/30/22 04/30/22 13:45 13:58 14:00 Temperature Pulse Rate 113 H 113 H Pulse Rate [ 114 H Anterior Bilateral Throughout] Pulse Rate [ From Monitor] Respiratory 35 H 37 H Rate Respiratory 25 H Rate [Anterior Bilateral Throughout] Blood Pressure 104/63 98/52 O2 Sat by Pulse 95 94 Oximetry 04/30/22 14:15 Temperature Pulse Rate 118 H Pulse Rate [ Anterior Bilateral Throughout] Pulse Rate [ From Monitor] Respiratory 34 H Rate Respiratory Rate [Anterior Bilateral Throughout] Blood Pressure 103/61 O2 Sat by Pulse 99 Oximetry Constitutional: appears uncomfortable, other (eldely female with mildly increased respiratory effort at rest) Eyes: non-icteric ENT: oropharynx moist, oropharyngeal exudate pre (clear frothy) Neck: supple, no lymphadenopathy, no JVD Effort: mildly labored Ascultation: Bilateral: diminished breath sounds, rhonchi, other (referred upper airway sounds) Percussion: Bilateral: not dull Cardiovascular: regular rate and rhythm Gastrointestinal: normoactive bowel sounds, soft, non-tender, non-distended Integumentary: normal Extremities: no cyanosis, no edema, pulses normal, no ischemia or petechiae Neurologic: non-focal exam (grossly), pupils equal and round, CN II-XII normal, motor strength normal and Psychiatric: other (flat affect) CBC and BMP: 04/29/22 10:54 04/29/22 10:54 ABG, PT/INR, D-dimer: PT/INR, D-dimer PT 17.9 Sec. (12.2-14.9) H 04/19/22 19:40 INR 1.28 (0.87-1.13) H 04/19/22 19:40 Abnormal lab findings: Abnormal Labs 04/19/22 04/19/22 04/19/22 04:53 04:53 04:53 WBC RBC 3.06 L Hgb 8.6 L Hct 28.0 L RDW 16.3 H [place] % (Auto) 11.3 H Lymph # (Auto) PT INR APTT Heparin Anti-Xa Level Sodium Potassium 5.1 H Chloride Carbon Dioxide 21 L BUN 94 H Creatinine 6.3 H Glucose POC Glucose Phosphorus Magnesium Troponin T 0.415 H* Albumin 2.7 L Free T4 0.28 L Crossmatch 04/19/22 04/19/22 04/20/22 19:40 19:40 05:30 WBC 4.1 L RBC 2.97 L Hgb 8.5 L 8.2 L Hct 27.8 L 27.1 L RDW 17.0 H [place] % (Auto) 15.2 H Lymph # (Auto) 1.1 L PT 17.9 H INR 1.28 H APTT 199.1 H* Heparin Anti-Xa Level Sodium Potassium Chloride Carbon Dioxide BUN Creatinine Glucose POC Glucose Phosphorus Magnesium Troponin T Albumin Free T4 Crossmatch 04/20/22 04/20/22 04/21/22 05:30 18:23 00:29 WBC RBC Hgb Hct RDW [place] % (Auto) Lymph # (Auto) PT INR APTT Heparin Anti-Xa Level 0.17 L Sodium Potassium Chloride Carbon Dioxide 21 L BUN 95 H Creatinine 6.6 H Glucose 139 H POC Glucose Phosphorus Magnesium 2.60 H Troponin T Albumin 2.4 L Free T4 Crossmatch 04/21/22 04/21/22 04/22/22 04:00 04:00 03:45 WBC RBC 2.74 L Hgb 7.7 L Hct 24.7 L RDW 16.6 H [place] % (Auto) Lymph # (Auto) PT INR APTT Heparin Anti-Xa Level < 0.10 L Sodium 133 L Potassium Chloride Carbon Dioxide 20 L BUN 89 H Creatinine 6.6 H Glucose 131 H POC Glucose Phosphorus 6.40 H Magnesium 2.50 H Troponin T Albumin Free T4 Crossmatch 04/22/22 04/22/22 04/22/22 03:45 12:13 14:30 WBC RBC Hgb Hct RDW [place] % (Auto) Lymph # (Auto) PT INR APTT Heparin Anti-Xa Level 0.11 L 0.11 L Sodium 136 L Potassium Chloride Carbon Dioxide 18 L BUN 90 H Creatinine 6.3 H Glucose 121 H POC Glucose Phosphorus 6.50 H Magnesium Troponin T Albumin Free T4 Crossmatch 04/22/22 04/23/22 04/23/22 23:08 02:17 04:10 WBC RBC Hgb 7.3 L Hct 23.3 L RDW [place] % (Auto) Lymph # (Auto) PT INR APTT Heparin Anti-Xa Level 0.14 L Sodium Potassium Chloride Carbon Dioxide BUN Creatinine Glucose POC Glucose 153 H Phosphorus Magnesium Troponin T Albumin Free T4 Crossmatch 04/23/22 04/23/22 04/23/22 04:10 06:09 23:22 WBC RBC Hgb Hct RDW [place] % (Auto) Lymph # (Auto) PT INR APTT Heparin Anti-Xa Level Sodium Potassium Chloride Carbon Dioxide BUN 36 H Creatinine 3.4 H Glucose 131 H POC Glucose 141 H 114 H Phosphorus Magnesium Troponin T Albumin Free T4 Crossmatch 04/24/22 04/24/22 04/24/22 02:10 04:00 04:00 WBC RBC 2.48 L Hgb 7.1 L Hct 22.6 L RDW 16.9 H [place] % (Auto) Lymph # (Auto) PT INR APTT Heparin Anti-Xa Level 0.12 L Sodium 134 L Potassium Chloride Carbon Dioxide BUN 42 H Creatinine 3.9 H Glucose 141 H POC Glucose Phosphorus Magnesium Troponin T Albumin Free T4 Crossmatch 04/24/22 04/24/22 04/24/22 05:03 10:20 11:24 WBC RBC Hgb Hct RDW [place] % (Auto) Lymph # (Auto) PT INR APTT Heparin Anti-Xa Level < 0.10 L Sodium Potassium Chloride Carbon Dioxide BUN Creatinine Glucose POC Glucose 142 H 144 H Phosphorus Magnesium Troponin T Albumin Free T4 Crossmatch 04/25/22 04/25/22 04/25/22 00:15 04:11 04:11 WBC 4.4 L RBC 2.38 L Hgb 6.7 L Hct 21.7 L RDW 17.2 H [place] % (Auto) Lymph # (Auto) PT INR APTT Heparin Anti-Xa Level Sodium 134 L Potassium Chloride 97.1 L Carbon Dioxide BUN 47 H Creatinine 4.3 H Glucose 106 H POC Glucose 136 H Phosphorus Magnesium Troponin T Albumin Free T4 Crossmatch 04/25/22 04/25/22 04/25/22 06:01 15:30 22:44 WBC RBC Hgb 8.8 L Hct 28.1 L D RDW [place] % (Auto) Lymph # (Auto) PT INR APTT Heparin Anti-Xa Level Sodium Potassium Chloride Carbon Dioxide BUN Creatinine Glucose POC Glucose 137 H Phosphorus Magnesium Troponin T Albumin Free T4 Crossmatch See Detail 04/26/22 04/27/22 04/27/22 04:20 04:45 04:45 WBC RBC 2.81 L 3.13 L Hgb 8.0 L 9.0 L Hct 25.4 L 29.1 L RDW 16.2 H 17.4 H [place] % (Auto) Lymph # (Auto) PT INR APTT Heparin Anti-Xa Level Sodium 131 L Potassium Chloride 93.5 L Carbon Dioxide BUN 44 H Creatinine 3.9 H Glucose 135 H POC Glucose Phosphorus Magnesium Troponin T Albumin Free T4 Crossmatch 04/27/22 04/28/22 04/28/22 23:38 05:26 07:54 WBC 11.1 H RBC 2.40 L Hgb 6.9 L Hct 22.1 L D RDW 17.2 H [place] % (Auto) Lymph # (Auto) PT INR APTT Heparin Anti-Xa Level Sodium Potassium Chloride Carbon Dioxide BUN Creatinine Glucose POC Glucose 229 H 169 H Phosphorus Magnesium Troponin T Albumin Free T4 Crossmatch 04/28/22 04/28/22 04/29/22 12:31 17:54 00:49 WBC RBC Hgb Hct RDW [place] % (Auto) Lymph # (Auto) PT INR APTT Heparin Anti-Xa Level Sodium Potassium Chloride Carbon Dioxide BUN Creatinine Glucose POC Glucose 132 H 138 H 189 H Phosphorus Magnesium Troponin T Albumin Free T4 Crossmatch 04/29/22 04/29/22 04/29/22 06:42 10:54 10:54 WBC 11.8 H RBC 2.93 L Hgb 8.6 L Hct 26.2 L RDW 16.8 H [place] % (Auto) Lymph # (Auto) PT INR APTT Heparin Anti-Xa Level Sodium 129 L Potassium Chloride 91.5 L Carbon Dioxide BUN 46 H Creatinine 3.1 H Glucose 180 H POC Glucose 196 H Phosphorus Magnesium Troponin T Albumin Free T4 Crossmatch 04/29/22 04/29/22 04/30/22 12:03 23:32 05:57 WBC RBC Hgb Hct RDW [place] % (Auto) Lymph # (Auto) PT INR APTT Heparin Anti-Xa Level Sodium Potassium Chloride Carbon Dioxide BUN Creatinine Glucose POC Glucose 169 H 170 H 151 H Phosphorus Magnesium Troponin T Albumin Free T4 Crossmatch 04/30/22 11:28 WBC RBC Hgb Hct RDW [place] % (Auto) Lymph # (Auto) PT INR APTT Heparin Anti-Xa Level Sodium Potassium Chloride Carbon Dioxide BUN Creatinine Glucose POC Glucose 159 H Phosphorus Magnesium Troponin T Albumin Free T4 Crossmatch Allied health notes reviewed: nursing
--- NOTE | 2022-04-30 15:34 | Progress Note ---
Assessment and Plan Impression: * End stage renal disease * AMS * SVT s/p cardioversion * SIRS * NSTEMI * Hypotension * Anemia secondary to ESRD * Secondary hyperparathyroidism * IJ thrombus Plan: * Will continue hemodialysis prn, last 04/29- plan to continue // if hemodynamically stable * Note plans for potential PEG placement * Minimal UF removal given soft BP- adjust salt baths and temp prn, note sodium 129 * Dose medications for renal function * cardiology/pulmonary notes reviewed, appreciated * appreciate vascular regarding AVG * continue midodrine given soft BP * keep MAP>65, vasopressors prn * Avoid potential nephrotoxins * Epogen TIW prn * Renal/HD diet * Continue binders prn Subjective Date of service: 04/30/22 Principal diagnosis: AHRF; Shock; AMS; SVT; NSTEMI; ESRD; Protein calorie maln utrition Interval history: Seen in ICU, off pressor support (Levophed). Resting in bed, lethargic Objective - Exam Narrative Exam: General: No acute distress Head: NC/AT Eyes: normal appearance Neck: Normal appearance Chest: coarse lung sounds CV: Regular rate and rhythm, right arm dialysis access Abdomen: Soft, normal bowel sounds, nontender, nondistended Neuro: alert, oriented, no focal deficits - Vital Signs Vital signs: Vital Signs - 12hr 04/30/22 04/30/22 04/30/22 03:45 04:00 04:16 Temperature 99.2 F Pulse Rate 125 H 125 H 124 H Pulse Rate [ Anterior Bilateral Throughout] Pulse Rate [ From Monitor] Respiratory 30 H 35 H 36 H Rate Respiratory Rate [Anterior Bilateral Throughout] Blood Pressure 85/39 85/39 89/47 O2 Sat by Pulse 96 96 93 Oximetry 04/30/22 04/30/22 04/30/22 04:30 04:45 05:00 Temperature Pulse Rate 124 H 125 H 121 H Pulse Rate [ Anterior Bilateral Throughout] Pulse Rate [ From Monitor] Respiratory 32 H 26 H 19 Rate Respiratory Rate [Anterior Bilateral Throughout] Blood Pressure 97/52 95/55 95/55 O2 Sat by Pulse 94 95 95 Oximetry 04/30/22 04/30/22 04/30/22 05:16 05:30 05:45 Temperature Pulse Rate 122 H 124 H 126 H Pulse Rate [ Anterior Bilateral Throughout] Pulse Rate [ From Monitor] Respiratory 30 H 21 32 H Rate Respiratory Rate [Anterior Bilateral Throughout] Blood Pressure 102/48 102/48 72/46 O2 Sat by Pulse 94 94 86 Oximetry 04/30/22 04/30/22 04/30/22 06:00 06:15 06:30 Temperature Pulse Rate 120 H 115 H 113 H Pulse Rate [ Anterior Bilateral Throughout] Pulse Rate [ From Monitor] Respiratory 32 H 25 H 27 H Rate Respiratory Rate [Anterior Bilateral Throughout] Blood Pressure 97/46 101/52 93/39 O2 Sat by Pulse 96 91 92 Oximetry 04/30/22 04/30/22 04/30/22 06:45 07:00 07:15 Temperature Pulse Rate 113 H 112 H 110 H Pulse Rate [ Anterior Bilateral Throughout] Pulse Rate [ From Monitor] Respiratory 26 H 27 H 28 H Rate Respiratory Rate [Anterior Bilateral Throughout] Blood Pressure 97/49 90/49 94/49 O2 Sat by Pulse 92 92 94 Oximetry 04/30/22 04/30/22 04/30/22 07:30 07:45 08:00 Temperature 99.6 F 99.6 F Pulse Rate 112 H 115 H 115 H Pulse Rate [ Anterior Bilateral Throughout] Pulse Rate [ From Monitor] Respiratory 29 H 25 H 27 H Rate Respiratory Rate [Anterior Bilateral Throughout] Blood Pressure 104/48 102/52 102/52 O2 Sat by Pulse 93 98 98 Oximetry 04/30/22 04/30/22 04/30/22 08:03 08:06 08:09 Temperature Pulse Rate 115 H Pulse Rate [ 114 H Anterior Bilateral Throughout] Pulse Rate [ 115 H From Monitor] Respiratory 27 H Rate Respiratory 18 Rate [Anterior Bilateral Throughout] Blood Pressure O2 Sat by Pulse 97 96 Oximetry 04/30/22 04/30/22 04/30/22 08:16 08:30 08:45 Temperature Pulse Rate 111 H 109 H 108 H Pulse Rate [ Anterior Bilateral Throughout] Pulse Rate [ From Monitor] Respiratory 26 H 26 H 27 H Rate Respiratory Rate [Anterior Bilateral Throughout] Blood Pressure 84/56 97/47 92/41 O2 Sat by Pulse 100 94 92 Oximetry 04/30/22 04/30/22 04/30/22 09:00 09:15 09:30 Temperature Pulse Rate 110 H 111 H 113 H Pulse Rate [ Anterior Bilateral Throughout] Pulse Rate [ From Monitor] Respiratory 29 H 33 H 25 H Rate Respiratory Rate [Anterior Bilateral Throughout] Blood Pressure 99/57 113/52 113/75 O2 Sat by Pulse 93 97 96 Oximetry 04/30/22 04/30/22 04/30/22 09:45 10:00 10:15 Temperature Pulse Rate 114 H 111 H 108 H Pulse Rate [ Anterior Bilateral Throughout] Pulse Rate [ From Monitor] Respiratory 33 H 29 H 28 H Rate Respiratory Rate [Anterior Bilateral Throughout] Blood Pressure 114/41 104/51 96/48 O2 Sat by Pulse 96 98 91 Oximetry 04/30/22 04/30/22 04/30/22 10:30 10:45 11:00 Temperature Pulse Rate 109 H 109 H 110 H Pulse Rate [ Anterior Bilateral Throughout] Pulse Rate [ From Monitor] Respiratory 33 H 36 H 31 H Rate Respiratory Rate [Anterior Bilateral Throughout] Blood Pressure 93/51 103/58 103/58 O2 Sat by Pulse 90 89 90 Oximetry 04/30/22 04/30/22 04/30/22 11:15 11:30 11:45 Temperature Pulse Rate 111 H 109 H 108 H Pulse Rate [ Anterior Bilateral Throughout] Pulse Rate [ From Monitor] Respiratory 34 H 33 H 29 H Rate Respiratory Rate [Anterior Bilateral Throughout] Blood Pressure 115/54 97/52 92/52 O2 Sat by Pulse 88 88 88 Oximetry 04/30/22 04/30/22 04/30/22 12:00 12:11 12:15 Temperature Pulse Rate 111 H 112 H 112 H Pulse Rate [ Anterior Bilateral Throughout] Pulse Rate [ 112 H From Monitor] Respiratory 37 H 32 H 35 H Rate Respiratory Rate [Anterior Bilateral Throughout] Blood Pressure 99/57 103/61 O2 Sat by Pulse 91 96 96 Oximetry 04/30/22 04/30/22 04/30/22 12:30 12:38 12:45 Temperature 97.6 F Pulse Rate 113 H 109 H Pulse Rate [ Anterior Bilateral Throughout] Pulse Rate [ From Monitor] Respiratory 41 H 26 H Rate Respiratory Rate [Anterior Bilateral Throughout] Blood Pressure 110/55 92/40 O2 Sat by Pulse 87 95 Oximetry 04/30/22 04/30/22 04/30/22 13:00 13:15 13:30 Temperature Pulse Rate 111 H 111 H 111 H Pulse Rate [ Anterior Bilateral Throughout] Pulse Rate [ From Monitor] Respiratory 36 H 39 H 29 H Rate Respiratory Rate [Anterior Bilateral Throughout] Blood Pressure 102/48 97/57 102/56 O2 Sat by Pulse 97 93 95 Oximetry 04/30/22 04/30/22 04/30/22 13:45 13:58 14:00 Temperature Pulse Rate 113 H 113 H Pulse Rate [ 114 H Anterior Bilateral Throughout] Pulse Rate [ From Monitor] Respiratory 35 H 37 H Rate Respiratory 25 H Rate [Anterior Bilateral Throughout] Blood Pressure 104/63 98/52 O2 Sat by Pulse 95 94 Oximetry 04/30/22 14:15 Temperature Pulse Rate 118 H Pulse Rate [ Anterior Bilateral Throughout] Pulse Rate [ From Monitor] Respiratory 34 H Rate Respiratory Rate [Anterior Bilateral Throughout] Blood Pressure 103/61 O2 Sat by Pulse 99 Oximetry - Lab 04/29/22 10:54 04/29/22 10:54 Most recent lab results Calcium 9.0 mg/dL (8.4-10.2) 04/29/22 10:54 Phosphorus 2.50 mg/dL (2.5-4.5) 04/24/22 04:00 Magnesium 1.80 mg/dL (1.7-2.3) 04/24/22 04:00 Medications & Allergies - Medications Allergies/Adverse Reactions: Allergies buspirone [From BuSpar] Allergy (Verified 04/18/22 12:22) Unknown Penicillins Allergy (Verified 04/18/22 12:22) Rash corn Adverse Reaction (Verified 04/18/22 12:22) Unknown Home Medications: Home Medications Medication Instructions Recorded Confirmed Last Taken Type Sevelamer Carbonate [Renvela] 0.8 gram PO TIDWM 09/02/20 02/02/22 05/31/21 History HYDROcodone/APAP 5-325 [[place] 1 each PO Q4HR PRN #30 tablet 05/18/21 02/02/22 Unknown Rx 5-325 mg TAB] ALBUTEROL NEB's [Proventil 0.083% 2.5 mg IH Q3HRT PRN #1 nebu 03/03/22 Unknown Rx NEBS] Clopidogrel [Plavix] 75 mg PO QDAY #90 tablet 03/03/22 Unknown Rx Divalproex [Sarina Serrano] 750 mg PO BID #60 tablet 03/03/22 Unknown Rx LORazepam [Ativan] 1 mg PO DAILY #30 tab 03/03/22 Unknown Rx Memantine Xr [Namenda Xr] 5 mg PO DAILY #30 cap 03/03/22 Unknown Rx Midodrine [Proamatine] 10 mg PO TID #90 tab 03/03/22 Unknown Rx Pantoprazole [Protonix TAB] 40 mg PO DAILY #30 tab 03/03/22 Unknown Rx QUEtiapine [SEROquel] 400 mg PO BID #60 tab 03/03/22 Unknown Rx risperiDONE [RisperDAL] 0.5 mg PO BID #60 tab 03/03/22 Unknown Rx Active Medications: Generic Name Dose Route Start Last Admin Trade Name Freq PRN Reason Stop Dose Admin Acetaminophen 650 mg 04/22/22 20:12 04/29/22 09:43 Acetaminophen 325 Mg/10.15 Ml Oral Liqd Unit Dose PO 650 mg Q6H PRN Administration Pain MILD(1-3)/Fever >100.5/DRAKE Albumin Human 25 gm 04/21/22 13:00 04/22/22 16:31 Albumin Human 25% (25 Gm/100 Ml) Inj IV 25 gm BIANCA PRN Administration Hypotension Albuterol 2.5 mg 04/21/22 08:30 04/24/22 16:51 Albuterol 2.5 Mg/3 Ml Nebu IH 2.5 mg Q3HRT PRN Administration Shortness Of Breath Albuterol/Ipratropium 1 ampul 04/21/22 14:00 04/30/22 13:57 Ipratropium/Albuterol Sulfate 3 Ml Ampul.Neb IH 1 ampul TIDRT CONNOR Administration Epoetin Lb-epbx 20,000 unit 04/23/22 12:00 04/25/22 20:00 Epoetin Lb-Epbx 20,000 Unit/1 Ml Vial IV 20,000 unit BIANCA PRN Administration HEMODIALYSIS Fludrocortisone Acetate 0.05 mg 04/28/22 10:00 04/30/22 10:10 Fludrocortisone 0.1 Mg Tab PO 05/01/22 10:01 0.05 mg QDAY CONNOR Administration NORepinephrine/NS 8 MG-250 ML 8 mg in 250 mls @ 3.75 mls/hr 04/19/22 09:00 04/29/22 09:30 Norepinephrine/Ns 8 Mg-250 Ml (Double Conc) IV 2 mcg/min TITRATE CONNOR 3.75 mls/hr Titration Protocol 2 MCG/MIN Sodium Chloride 100 mls @ 999 mls/hr 04/22/22 09:12 Nacl 0.9% IV BIANCA PRN Hypotension Phenylephrine HCl 100 mg/ 100 mls @ 3 mls/hr 04/27/22 14:00 Sodium Chloride IV TITR CONNOR Protocol 50 MCG/MIN Lansoprazole 30 mg 04/23/22 10:00 04/30/22 09:38 Lansoprazole 30 Mg Solutab FEEDTUBE 30 mg QDAY CONNOR Administration Lorazepam 0.5 mg 04/25/22 09:59 Lorazepam 0.5 Mg Tab FEEDTUBE QDAY PRN Anxiety Memantine 5 mg 04/25/22 10:00 04/30/22 10:10 Memantine 5 Mg Tab FEEDTUBE 5 mg BID CONNOR Administration Metoclopramide HCl 5 mg 04/19/22 09:55 Metoclopramide 10 Mg/2 Ml Inj IV Q6H PRN Nausea And Vomiting Midodrine 20 mg 04/26/22 14:00 04/30/22 14:50 Midodrine 10 Mg Tab FEEDTUBE 20 mg TID CONNOR Administration Naloxone HCl 0.1 mg 04/19/22 09:55 Naloxone 0.4 Mg/1 Ml Inj IV Q2MIN PRN Res Rate </= 8 or 02 SAT < 92% Polyethylene Glycol 17 gm 04/28/22 10:00 04/30/22 09:38 Polyethylene Glycol 3350 17 Gm Powder PO 17 gm QDAY CONNOR Administration Quetiapine Fumarate 200 mg 04/25/22 22:00 04/29/22 23:39 Quetiapine 200 Mg Tab FEEDTUBE 200 mg QHS CONNOR Administration Quetiapine Fumarate 100 mg 04/26/22 10:00 04/30/22 09:38 Quetiapine 100 Mg Tab FEEDTUBE 100 mg QAM CONNOR Administration Risperidone 0.5 mg 04/25/22 11:00 04/30/22 09:38 Risperidone 1 Mg Tab FEEDTUBE 0.5 mg BID CONNOR Administration Senna 17.2 mg 04/23/22 10:00 04/30/22 09:38 Sennosides 8.6 Mg Tab FEEDTUBE 17.2 mg BID CONNOR Administration Sodium Chloride 10 ml 04/19/22 12:00 04/30/22 09:39 Sodium Chloride 0.9% 10 Ml Flush Syringe IV 10 ml BID CONNOR Administration Sodium Chloride 10 ml 04/19/22 11:19 Sodium Chloride 0.9% 10 Ml Flush Syringe IV PRN PRN LINE FLUSH Valproic Acid 750 mg 04/22/22 22:00 04/30/22 09:38 Valproic Acid 250 Mg/5 Ml Oral Liqd FEEDTUBE 750 mg BID CONNOR Administration
[2022-04-30] MEDS: QUEtiapine 200 MG TAB FEEDTUBE SCH (21:28)
[2022-05-01 05:33] LABS: Hematocrit 26.7 % (30.3-42.9); Hemoglobin 8.4 gm/dl (10.1-14.3); Mean Corpuscular HGB Conc 31 % (30-34); Mean Corpuscular Volume 91 fl (79-97); Platelet Count 194 K/mm3 (140-440); Red Blood Count 2.92 M/mm3 (3.65-5.03); Red Cell Distribution Width 16.6 % (13.2-15.2)
[2022-05-01] MEDS: NORepinephrine/NS 8 MG-250 ML 8 MG/250 ML INFUS..BTL IV SCH (06:02)
[2022-05-01] MEDS: MIDODRINE 10 MG TAB FEEDTUBE SCH ×4 (08:16→21:32)
[2022-05-01] MEDS: IPRATROPIUM/ALBUTEROL SULFATE 3 ML AMPUL.NEB IH SCH ×3 (08:42→23:22)
--- NOTE | 2022-05-01 08:46 | Progress Note ---
Assessment and Plan Patient will need a fistulogram at some point in time to decrease the swelling in her right arm. Currently able to successfully receive dialysis. Patient also awaiting placement of gastrostomy tube. We will plan on fistulogram when patient is more stable hopefully sometime later this week. 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 Patient nonverbal. Significant amount of gurgling, unable to clear respiratory secretions. Patient successfully underwent dialysis on Sunday through her right upper arm fistula. Objective - Constitutional Vitals: Vital Signs - 12hr 04/30/22 04/30/22 04/30/22 21:00 22:00 22:59 Temperature Pulse Rate 124 H 119 H 117 H Respiratory 15 33 H 30 H Rate Blood Pressure 118/65 107/45 93/54 O2 Sat by Pulse 95 94 96 Oximetry 04/30/22 04/30/22 04/30/22 23:00 23:10 23:48 Temperature 100.5 F H Pulse Rate 117 H 118 H Respiratory 29 H 33 H Rate Blood Pressure 93/54 O2 Sat by Pulse 96 94 Oximetry 04/30/22 05/01/22 05/01/22 23:58 00:00 01:00 Temperature Pulse Rate 116 H 116 H Respiratory 21 34 H Rate Blood Pressure 92/50 91/49 O2 Sat by Pulse 88 93 95 Oximetry 05/01/22 05/01/22 05/01/22 02:00 02:45 03:00 Temperature Pulse Rate 114 H 112 H 109 H Respiratory 30 H 26 H 26 H Rate Blood Pressure 95/52 95/47 71/35 O2 Sat by Pulse 95 97 97 Oximetry 05/01/22 05/01/22 05/01/22 03:16 03:30 03:39 Temperature 98.9 F Pulse Rate 116 H 112 H Respiratory 27 H 30 H Rate Blood Pressure 112/63 103/54 O2 Sat by Pulse 96 99 Oximetry 05/01/22 05/01/22 05/01/22 03:45 04:00 04:15 Temperature Pulse Rate 111 H 122 H Respiratory 22 35 H 24 Rate Blood Pressure 93/48 75/38 122/73 O2 Sat by Pulse 99 100 97 Oximetry 05/01/22 05/01/2205/01/22 04:30 04:46 05:00 Temperature Pulse Rate 120 H 121 H 125 H Respiratory 28 H 36 H 17 Rate Blood Pressure 127/75 75/38 137/74 O2 Sat by Pulse 96 95 96 Oximetry 05/01/22 05/01/22 05/01/22 05:16 05:30 05:46 Temperature Pulse Rate 125 H 125 H 117 H Respiratory 15 13 26 H Rate Blood Pressure 144/81 141/64 103/47 O2 Sat by Pulse 97 95 97 Oximetry 05/01/22 05/01/22 06:00 07:26 Temperature 98.1 F Pulse Rate 111 H Respiratory 22 Rate Blood Pressure 89/35 O2 Sat by Pulse 95 Oximetry General appearance: Present: mild distress Extremity abnormal: edema (Right arm) - Labs CBC & Chem 7: 05/01/22 04:00 04/29/22 10:54 Labs: Abnormal lab results 04/30/22 04/30/22 04/30/22 Range/Units 11:28 16:39 23:22 RBC (3.65-5.03) M/mm3 Hgb (10.1-14.3) gm/dl Hct (30.3-42.9) % RDW (13.2-15.2) % POC Glucose 159 H 147 H 170 H (70-105) mg/dL 05/01/22 05/01/22 Range/Units 04:00 05:34 RBC 2.92 L (3.65-5.03) M/mm3 Hgb 8.4 L (10.1-14.3) gm/dl Hct 26.7 L (30.3-42.9) % RDW 16.6 H (13.2-15.2) % POC Glucose 140 H (70-105) mg/dL Medications & Allergies - Medications Allergies/Adverse Reactions: Allergies buspirone [From BuSpar] Allergy (Verified 04/18/22 12:22) Unknown Penicillins Allergy (Verified 04/18/22 12:22) Rash corn Adverse Reaction (Verified 04/18/22 12:22) Unknown Home Medications: Home Medications Medication Instructions Recorded Confirmed Last Taken Type Sevelamer Carbonate [Renvela] 0.8 gram PO TIDWM 09/02/20 02/02/22 05/31/21 History HYDROcodone/APAP 5-325 [[place] 1 each PO Q4HR PRN #30 tablet 05/18/21 02/02/22 Unknown Rx 5-325 mg TAB] ALBUTEROL NEB's [Proventil 0.083% 2.5 mg IH Q3HRT PRN #1 nebu 03/03/22 Unknown Rx NEBS] Clopidogrel [Plavix] 75 mg PO QDAY #90 tablet 03/03/[address] [Depakote Dr] 750 mg PO BID #60 tablet 03/03/22 Unknown Rx LORazepam [Ativan] 1 mg PO DAILY #30 tab 03/03/22 Unknown Rx Memantine Xr [Namenda Xr] 5 mg PO DAILY #30 cap 03/03/22 Unknown Rx Midodrine [Proamatine] 10 mg PO TID #90 tab 03/03/22 Unknown Rx Pantoprazole [Protonix TAB] 40 mg PO DAILY #30 tab 03/03/22 Unknown Rx QUEtiapine [SEROquel] 400 mg PO BID #60 tab 03/03/22 Unknown Rx risperiDONE [RisperDAL] 0.5 mg PO BID #60 tab 03/03/22 Unknown Rx Active Medications: Generic Name Dose Route Start Last Admin Trade Name Freq PRN Reason Stop Dose Admin Acetaminophen 650 mg 04/22/22 20:12 04/29/22 09:43 Acetaminophen 325 Mg/10.15 Ml Oral Liqd Unit Dose PO 650 mg Q6H PRN Administration Pain MILD(1-3)/Fever >100.5/DRAKE Albumin Human 25 gm 04/21/22 13:00 04/22/22 16:31 Albumin Human 25% (25 Gm/100 Ml) Inj IV 25 gm BIANCA PRN Administration Hypotension Albuterol 2.5 mg 04/21/22 08:30 04/24/22 16:51 Albuterol 2.5 Mg/3 Ml Nebu IH 2.5 mg Q3HRT PRN Administration Shortness Of Breath Albuterol/Ipratropium 1 ampul 04/21/22 14:00 04/30/22 19:47 Ipratropium/Albuterol Sulfate 3 Ml Ampul.Neb IH 1 ampul TIDRT CONNOR Administration Epoetin Lb-epbx 20,000 unit 04/23/22 12:00 04/25/22 20:00 Epoetin Lb-Epbx 20,000 Unit/1 Ml Vial IV 20,000 unit BIANCA PRN Administration HEMODIALYSIS Fludrocortisone Acetate 0.05 mg 04/28/22 10:00 04/30/22 10:10 Fludrocortisone 0.1 Mg Tab PO 05/01/22 10:01 0.05 mg QDAY CONNOR Administration NORepinephrine/NS 8 MG-250 ML 8 mg in 250 mls @ 3.75 mls/hr 04/19/22 09:00 05/01/22 06:02 Norepinephrine/Ns 8 Mg-250 Ml (Double Conc) IV 2 mcg/min TITRATE CONNOR 3.75 mls/hr Administration Protocol 2 MCG/MIN Sodium Chloride 100 mls @ 999 mls/hr 04/22/22 09:12 Nacl 0.9% IV BIANCA PRN Hypotension Phenylephrine HCl 100 mg/ 100 mls @ 3 mls/hr 04/27/22 14:00 Sodium Chloride IV TITR CONNOR Protocol 50 MCG/MIN Lansoprazole 30 mg 04/23/22 10:00 04/30/22 09:38 Lansoprazole 30 Mg Solutab FEEDTUBE 30 mg QDAY CONNOR Administration Lorazepam 0.5 mg 04/25/22 09:59 Lorazepam 0.5 Mg Tab FEEDTUBE QDAY PRN Anxiety Memantine 5 mg 04/25/22 10:00 04/30/22 21:28 Memantine 5 Mg Tab FEEDTUBE 5 mg BID CONNOR Administration Metoclopramide HCl 5 mg 04/19/22 09:55 Metoclopramide 10 Mg/2 Ml Inj IV Q6H PRN Nausea And Vomiting Midodrine 20 mg 04/26/22 14:00 05/01/22 08:16 Midodrine 10 Mg Tab FEEDTUBE 20 mg TID CONNOR Administration Naloxone HCl 0.1 mg 04/19/22 09:55 Naloxone 0.4 Mg/1 Ml Inj IV Q2MIN PRN Res Rate </= 8 or 02 SAT < 92% Polyethylene Glycol 17 gm 04/28/22 10:00 04/30/22 09:38 Polyethylene Glycol 3350 17 Gm Powder PO 17 gm QDAY CONNOR Administration Quetiapine Fumarate 200 mg 04/25/22 22:00 04/30/22 21:28 Quetiapine 200 Mg Tab FEEDTUBE 200 mg QHS CONNOR Administration Quetiapine Fumarate 100 mg 05/02/22 10:00 Quetiapine 100 Mg Tab FEEDTUBE QAM CONNOR Risperidone 0.5 mg 04/25/22 11:00 04/30/22 21:28 Risperidone 1 Mg Tab FEEDTUBE 0.5 mg BID CONNOR Administration Senna 17.2 mg 04/23/22 10:00 04/30/22 21:42 Sennosides 8.6 Mg Tab FEEDTUBE Not Given BID CONNOR Sodium Chloride 10 ml 04/19/22 12:00 04/30/22 21:42 Sodium Chloride 0.9% 10 Ml Flush Syringe IV 10 ml BID CONNOR Administration Sodium Chloride 10 ml 04/19/22 11:19 Sodium Chloride 0.9% 10 Ml Flush Syringe IV PRN PRN LINE FLUSH Valproic Acid 750 mg 04/22/22 22:00 04/30/22 21:29 Valproic Acid 250 Mg/5 Ml Oral Liqd FEEDTUBE 750 mg BID CONNOR Administration HEART Score - HEART Score Troponin: Troponin T 0.415 ng/mL (0.00-0.029) H* 04/19/22 04:53
[2022-05-01] MEDS: POLYETHYLENE GLYCOL 3350 17 GM POWDER PO SCH (09:49)
[2022-05-01] MEDS: VALPROIC ACID 250 MG/5 ML ORAL LIQD FEEDTUBE SCH ×2 (09:50→21:30)
[2022-05-01] MEDS: MEMANTINE 5 MG TAB FEEDTUBE SCH ×2 (09:50→21:32)
[2022-05-01] MEDS: risperiDONE 1 MG TAB FEEDTUBE SCH ×2 (09:50→21:31)
[2022-05-01] MEDS: FLUDROCORTISONE 0.1 MG TAB PO SCH (09:50)
[2022-05-01] MEDS: LANSOPRAZOLE 30 MG SOLUTAB FEEDTUBE SCH (09:51)
[2022-05-01] MEDS: SENNOSIDES 8.6 MG TAB FEEDTUBE SCH ×2 (09:51→21:31)
--- NOTE | 2022-05-01 10:42 | Progress Note ---
Assessment and Plan Patient is a 66-year-old female with a past medical history of end-stage renal disease on hemodialysis, hypertension, seizure disorder, bipolar disorder, schizophrenia, anxiety, limited mobility, and vascular dementia who presented to the ED from [facility] with report of altered mental status for several days AMS End-stage renal disease on hemodialysis-nephrology following SVT Hypotension Schizophrenia Vascular dementia Bipolar disorder Hypotension Echo 01/31/2022-EF 60 to 65%. Doppler flow pattern suggests impaired LV relaxation. Right ventricle systolic function is normal trace aortic regurgitation. Trace mitral regurgitation. Plan: Patient found to have right IJ thrombus. Vascualr following Telemetry reviewed patient remains in sinus tach Due to anemia requiring PRBC transfusion will continue to hold anticoagulation Due to patient's mental status and comorbidities recommend conservative management No MARGOTH, ARB, beta-hernan due to hypotension Patient currently in sinus rhythm and has history of hypotension and has been restarted on pressors. Suspect hypotension is not of cardiac origin Agree with midodrine Defer volume management to nephrology due to patient renal function Per documentation and discussion with staff patient is pending placement of PEG Pt is a non-modifiable risk CV pt awaiting intervention for PEG. RCRI class is IV (3 points, 15% risk of MACE). In the absence however of ischemic cardiac symptoms or acutely decompensated HF, there are no contraindications to intervention at this time from a CV standpoint. Will see as needed Pt seen in conjunction with Dr. Garcia, who agrees with the assessment and plan of care. - Patient Problems (1) Altered mental status Current Visit: Yes Status: Acute (2) Elevated troponin Current Visit: Yes Status: Acute (3) Uremic encephalopathy Current Visit: Yes Status: Acute (4) ESRD (end stage renal disease) on dialysis Current Visit: Yes Status: Chronic (5) Hypotension Current Visit: Yes Status: Chronic Qualifiers: (6) Schizophrenia Current Visit: Yes Status: Chronic Qualifiers: (7) Acute encephalopathy Current Visit: No Status: Acute (8) Bipolar disorder Current Visit: No Status: Acute (9) Cerebral atherosclerosis Current Visit: Yes Status: Chronic (10) Atrial fibrillation with RVR Current Visit: Yes Status: Acute (11) SVT (supraventricular tachycardia) Current Visit: Yes Status: Acute (12) Type 2 myocardial infarction Current Visit: Yes Status: Acute Subjective Date of service: 05/01/22 Principal diagnosis: AHRF; Shock; AMS; SVT; NSTEMI; ESRD; Protein calorie malnutrition Interval history: Patient resting in bed in no acute distress. Remains with altered mental status. Patient awaiting PEG placement Patient in sinus tach 110s Objective Vital Signs Temp Pulse Pulse Pulse Resp Resp BP 05/01/22 07:26 98.1 F 05/01/22 06:00 111 H 22 89/35 05/01/22 05:46 117 H 26 H 103/47 05/01/22 05:30 125 H 13 141/64 05/01/22 05:16 125 H 15 144/81 05/01/22 05:00 125 H 17 137/74 05/01/22 04:46 121 H 36 H 75/38 05/01/22 04:30 120 H 28 H 127/75 05/01/22 04:15 24 122/73 05/01/22 04:00 122 H 35 H 75/38 05/01/22 03:45 111 H 22 93/48 05/01/22 03:39 98.9 F 05/01/22 03:30 112 H 30 H 103/54 05/01/22 03:16 116 H 27 H 112/63 05/01/22 03:00 109 H 26 H 71/35 05/01/22 02:45 112 H 26 H 95/47 05/01/22 02:00 114 H 30 H 95/52 05/01/22 01:00 116 H 34 H 91/49 05/01/22 00:00 116 H 21 92/50 04/30/22 23:58 04/30/22 23:48 100.5 F H 04/30/22 23:10 118 H 33 H 04/30/22 23:00 117 H 29 H 93/54 04/30/22 22:59 117 H 30 H 93/54 04/30/22 22:00 119 H 33 H 107/45 04/30/22 21:00 124 H 15 118/65 04/30/22 20:00 115 H 34 H 113/72 04/30/22 19:48 119 H 29 H 04/30/22 19:47 04/30/22 19:45 99.3 F 04/30/22 19:00 114 H 28 H 154/82 04/30/22 18:00 108 H 33 H 98/59 04/30/22 17:46 108 H 31 H 98/59 04/30/22 17:43 97.9 F 04/30/22 17:30 106 H 31 H 98/61 04/30/22 17:15 107 H 31 H 106/55 04/30/22 17:00 108 H 30 H 92/51 04/30/22 16:45 113 H 41 H 102/54 04/30/22 16:30 109 H 28 H 91/48 04/30/22 16:15 112 H 37 H 103/63 04/30/22 16:09 111 H 111 H 29 H 04/30/22 16:00 113 H 37 H 106/57 04/30/22 15:45 115 H 38 H 110/71 04/30/22 15:30 111 H 35 H 100/52 04/30/22 15:15 114 H 32 H 107/50 04/30/22 15:00 111 H 32 H 93/47 04/30/22 14:46 115 H 35 H 100/54 04/30/22 14:30 117 H 33 H 100/60 04/30/22 14:15 118 H 34 H 103/61 04/30/22 14:00 113 H 37 H 98/52 04/30/22 13:58 114 H 25 H 04/30/22 13:45 113 H 35 H 104/63 04/30/22 13:30 111 H 29 H 102/56 04/30/22 13:15 111 H 39 H 97/57 04/30/22 13:00 111 H 36 H 102/48 04/30/22 12:45 109 H 26 H 92/40 04/30/22 12:38 97.6 F 04/30/22 12:30 113 H 41 H 110/55 04/30/22 12:15 112 H 35 H 103/61 04/30/22 12:11 112 H 112 H 32 H 04/30/22 12:00 111 H 37 H 99/57 04/30/22 11:45 108 H 29 H 92/52 04/30/22 11:30 109 H 33 H 97/52 04/30/22 11:15 111 H 34 H 115/54 04/30/22 11:00 110 H 31 H 103/58 04/30/22 10:45 109 H 36 H 103/58 Pulse Ox 05/01/22 07:26 05/01/22 06:00 95 05/01/22 05:46 97 05/01/22 05:30 95 05/01/22 05:16 97 05/01/22 05:00 96 05/01/22 04:46 95 05/01/22 04:30 96 05/01/22 04:15 97 05/01/22 04:00 100 05/01/22 03:45 99 05/01/22 03:39 05/01/22 03:30 99 05/01/22 03:16 96 05/01/22 03:00 97 05/01/22 02:45 97 05/01/22 02:00 95 05/01/22 01:00 95 05/01/22 00:00 93 04/30/22 23:58 88 04/30/22 23:48 04/30/22 23:10 94 04/30/22 23:00 96 04/30/22 22:59 96 04/30/22 22:00 94 04/30/22 21:00 95 04/30/22 20:00 100 04/30/22 19:48 04/30/22 19:47 96 04/30/22 19:45 04/30/22 19:00 96 04/30/22 18:00 98 04/30/22 17:46 95 04/30/22 17:43 04/30/22 17:30 97 04/30/22 17:15 97 04/30/22 17:00 98 04/30/22 16:45 97 04/30/22 16:30 98 04/30/22 16:15 92 04/30/22 16:09 97 04/30/22 16:00 96 04/30/22 15:45 94 04/30/22 15:30 89 04/30/22 15:15 93 04/30/22 15:00 92 04/30/22 14:46 93 04/30/22 14:30 93 04/30/22 14:15 99 04/30/22 14:00 94 04/30/22 13:58 04/30/22 13:45 95 04/30/22 13:30 95 04/30/22 13:15 93 04/30/22 13:00 97 04/30/22 12:45 95 04/30/22 12:38 04/30/22 12:30 87 04/30/22 12:15 96 04/30/22 12:11 96 04/30/22 12:00 91 04/30/22 11:45 88 04/30/22 11:30 88 04/30/22 11:15 88 04/30/22 11:00 90 04/30/22 10:45 89 - Physical Examination General: No Apparent Distress HEENT: Positive: Normocephaly, Mucus Membranes Dry Neck: Positive: trachea midline. Negative: JVD/HJR Cardiac: Positive: Regular Rhythm, Tachycardia Lungs: Positive: Rales Neuro: Positive: Other (unable to assess) Abdomen: Positive: Soft Skin: Negative: Rash Extremities: Present: edema (RUE) - Labs and Meds CBC 05/01/22 Range/Units 04:00 WBC 11.0 (4.5-11.0) K/mm3 RBC 2.92 L (3.65-5.03) M/mm3 Hgb 8.4 L (10.1-14.3) gm/dl Hct 26.7 L (30.3-42.9) % Plt Count 194 (140-440) K/mm3 - Imaging and Cardiology EKG: report reviewed, image reviewed Echo: report reviewed (TTE 01/31/2022 - EF 60 to 65%. Doppler flow pattern suggests impaired LV relaxation. Right ventricle systolic function is normal. Trace aortic regurgitation. Trace mitral regurgitation.) - Telemetry EKG Rhythm: Sinus Tachycardia - EKG Sinus rhythms and dysrhythmias: sinus tachycardia Repolarization changes or abnormalities: nonspecific abnormality, ST segment, and/or T wave - Allied health notes Allied health notes reviewed: nursing
--- NOTE | 2022-05-01 10:47 | Progress Note ---
Assessment and Plan Impression: * End stage renal disease * Acute hypoxic respiratory failure * AMS * SVT s/p cardioversion * SIRS * NSTEMI * Hypotension * Anemia secondary to ESRD * Secondary hyperparathyroidism * IJ thrombus Plan: * Will continue hemodialysis prn, last 04/29- plan to continue // if hemodynamically stable * Note plans for potential PEG placement * Minimal UF removal given soft BP- adjust salt baths and temp prn * Dose medications for renal function * cardiology/pulmonary notes reviewed, appreciated * appreciate vascular regarding AVG * continue midodrine given soft BP * keep MAP>65, vasopressors prn * Avoid potential nephrotoxins * Epogen TIW prn * Renal/HD diet * Continue binders prn Subjective Date of service: 05/01/22 Principal diagnosis: AHRF; Shock; AMS; SVT; NSTEMI; ESRD; Protein calorie malnutrition Interval history: Seen in ICU. On high flow. Objective - Exam Narrative Exam: General: No acute distress Head: NC/AT Eyes: normal appearance Neck: Normal appearance Chest: coarse lung sounds CV: Regular rate and rhythm, right arm dialysis access Abdomen: Soft, normal bowel sounds, nontender, nondistended Neuro: alert, oriented, no focal deficits - Vital Signs Vital signs: Vital Signs - 12hr 04/30/22 04/30/22 04/30/22 22:59 23:00 23:10 Temperature Pulse Rate 117 H 117 H 118 H Respiratory 30 H 29 H 33 H Rate Blood Pressure 93/54 93/54 O2 Sat by Pulse 96 96 94 Oximetry 04/30/22 04/30/22 05/01/22 23:48 23:58 00:00 Temperature 100.5 F H Pulse Rate 116 H Respiratory 21 Rate Blood Pressure 92/50 O2 Sat by Pulse 88 93 Oximetry 05/01/22 05/01/22 05/01/22 01:00 02:00 02:45 Temperature Pulse Rate 116 H 114 H 112 H Respiratory 34 H 30 H 26 H Rate Blood Pressure 91/49 95/52 95/47 O2 Sat by Pulse 95 95 97 Oximetry 05/01/22 05/01/22 05/01/22 03:00 03:16 03:30 Temperature Pulse Rate 109 H 116 H 112 H Respiratory 26 H 27 H 30 H Rate Blood Pressure 71/35 112/63 103/54 O2 Sat by Pulse 97 96 99 Oximetry 05/01/22 05/01/22 05/01/22 03:39 03:45 04:00 Temperature 98.9 F Pulse Rate 111 H 122 H Respiratory 22 35 H Rate Blood Pressure 93/48 75/38 O2 Sat by Pulse 99 100 Oximetry 05/01/22 05/01/22 05/01/22 04:15 04:30 04:46 Temperature Pulse Rate 120 H 121 H Respiratory 24 28 H 36 H Rate Blood Pressure 122/73 127/75 75/38 O2 Sat by Pulse 97 96 95 Oximetry 05/01/22 05/01/22 05/01/22 05:00 05:16 05:30 Temperature Pulse Rate 125 H 125 H 125 H Respiratory 17 15 13 Rate Blood Pressure 137/74 144/81 141/64 O2 Sat by Pulse 96 97 95 Oximetry 05/01/22 05/01/22 05/01/22 05:46 06:00 07:26 Temperature 98.1 F Pulse Rate 117 H 111 H Respiratory 26 H 22 Rate Blood Pressure 103/47 89/35 O2 Sat by Pulse 97 95 Oximetry - Lab 05/01/22 04:00 04/29/22 10:54 Most recent lab results Calcium 9.0 mg/dL (8.4-10.2) 04/29/22 10:54 Phosphorus 2.50 mg/dL (2.5-4.5) 04/24/22 04:00 Magnesium 1.80 mg/dL (1.7-2.3) 04/24/22 04:00 Medications & Allergies - Medications Allergies/Adverse Reactions: Allergies buspirone [From BuSpar] Allergy (Verified 04/18/22 12:22) Unknown Penicillins Allergy (Verified 04/18/22 12:22) Rash corn Adverse Reaction (Verified 04/18/22 12:22) Unknown Home Medications: Home Medications Medication Instructions Recorded Confirmed Last Taken Type Sevelamer Carbonate [Renvela] 0.8 gram PO TIDWM 09/02/20 02/02/22 05/31/21 History HYDROcodone/APAP 5-325 [Dolliver 1 each PO Q4HR PRN #30 tablet 05/18/21 02/02/22 Unknown Rx 5-325 mg TAB] ALBUTEROL NEB's [Proventil 0.083% 2.5 mg IH Q3HRT PRN #1 nebu 03/03/22 Unknown Rx NEBS] Clopidogrel [Plavix] 75 mg PO QDAY #90 tablet 03/03/[address] [Sarina Serrano] 750 mg PO BID #60 tablet 03/03/22 Unknown Rx LORazepam [Ativan] 1 mg PO DAILY #30 tab 03/03/22 Unknown Rx Memantine Xr [Namenda Xr] 5 mg PO DAILY #30 cap 03/03/22 Unknown Rx Midodrine [Proamatine] 10 mg PO TID #90 tab 03/03/22 Unknown Rx Pantoprazole [Protonix TAB] 40 mg PO DAILY #30 tab 03/03/22 Unknown Rx QUEtiapine [SEROquel] 400 mg PO BID #60 tab 03/03/22 Unknown Rx risperiDONE [RisperDAL] 0.5 mg PO BID #60 tab 03/03/22 Unknown Rx Active Medications: Generic Name Dose Route Start Last Admin Trade Name Freq PRN Reason Stop Dose Admin Acetaminophen 650 mg 04/22/22 20:12 04/29/22 09:43 Acetaminophen 325 Mg/10.15 Ml Oral Liqd Unit Dose PO 650 mg Q6H PRN Administration Pain MILD(1-3)/Fever >100.5/DRAKE Albumin Human 25 gm 04/21/22 13:00 04/22/22 16:31 Albumin Human 25% (25 Gm/100 Ml) Inj IV 25 gm BIANCA PRN Administration Hypotension Albuterol 2.5 mg 04/21/22 08:30 04/24/22 16:51 Albuterol 2.5 Mg/3 Ml Nebu IH 2.5 mg Q3HRT PRN Administration Shortness Of Breath Albuterol/Ipratropium 1 ampul 04/21/22 14:00 04/30/22 19:47 Ipratropium/Albuterol Sulfate 3 Ml Ampul.Neb IH 1 ampul TIDRT CONNOR Administration Epoetin Lb-epbx 20,000 unit 04/23/22 12:00 04/25/22 20:00 Epoetin Lb-Epbx 20,000 Unit/1 Ml Vial IV 20,000 unit BIANCA PRN Administration HEMODIALYSIS NORepinephrine/NS 8 MG-250 ML 8 mg in 250 mls @ 3.75 mls/hr 04/19/22 09:00 05/01/22 06:02 Norepinephrine/Ns 8 Mg-250 Ml (Double Conc) IV 2 mcg/min TITRATE CONNOR 3.75 mls/hr Administration Protocol 2 MCG/MIN Sodium Chloride 100 mls @ 999 mls/hr 04/22/22 09:12 Nacl 0.9% IV BIANCA PRN Hypotension Phenylephrine HCl 100 mg/ 100 mls @ 3 mls/hr 04/27/22 14:00 Sodium Chloride IV TITR CONNOR Protocol 50 MCG/MIN Lansoprazole 30 mg 04/23/22 10:00 05/01/22 09:51 Lansoprazole 30 Mg Solutab FEEDTUBE 30 mg QDAY CONNOR Administration Lorazepam 0.5 mg 04/25/22 09:59 Lorazepam 0.5 Mg Tab FEEDTUBE QDAY PRN Anxiety Memantine 5 mg 04/25/22 10:00 05/01/22 09:50 Memantine 5 Mg Tab FEEDTUBE 5 mg BID CONNOR Administration Metoclopramide HCl 5 mg 04/19/22 09:55 Metoclopramide 10 Mg/2 Ml Inj IV Q6H PRN Nausea And Vomiting Midodrine 20 mg 04/26/22 14:00 05/01/22 08:16 Midodrine 10 Mg Tab FEEDTUBE 20 mg TID CONNOR Administration Naloxone HCl 0.1 mg 04/19/22 09:55 Naloxone 0.4 Mg/1 Ml Inj IV Q2MIN PRN Res Rate </= 8 or 02 SAT < 92% Polyethylene Glycol 17 gm 04/28/22 10:00 05/01/22 09:49 Polyethylene Glycol 3350 17 Gm Powder PO 17 gm QDAY CONNOR Administration Risperidone 0.5 mg 04/25/22 11:00 05/01/22 09:50 Risperidone 1 Mg Tab FEEDTUBE 0.5 mg BID CONNOR Administration Senna 17.2 mg 04/23/22 10:00 05/01/22 09:51 Sennosides 8.6 Mg Tab FEEDTUBE 17.2 mg BID CONNOR Administration Sodium Chloride 10 ml 04/19/22 12:00 05/01/22 09:52 Sodium Chloride 0.9% 10 Ml Flush Syringe IV 10 ml BID CONNOR Administration Sodium Chloride 10 ml 04/19/22 11:19 Sodium Chloride 0.9% 10 Ml Flush Syringe IV PRN PRN LINE FLUSH Valproic Acid 750 mg 04/22/22 22:00 05/01/22 09:50 Valproic Acid 250 Mg/5 Ml Oral Liqd FEEDTUBE 750 mg BID CONNOR Administration
--- NOTE | 2022-05-01 10:48 | Progress Note ---
Assessment and Plan This is a 66-year-old female with HTN, GERD, seizure disorder, vascular dementia, ESRD on HD, chronic hypertension, bipolar, schizophrenia, anxiety admitted with acute hypoxic respiratory failure, acute on chronic hypotension, acute on chronic metabolic encephalopathy and SVT Acute on Chronic Hypotension Acute on Chronic Metabolic Encephalopathy SVT Elevated troponin, possibly demand ischemia Bipolar disorder/Schizophrenia, Hyperkalemia ESRD on hemodialysis, Anemia of chronic disease RIJ DVT Get CXR, for worsening respiratory status Vapotherm, high flow oxygen therapy- avoid BIPAP, high aspiration risk Secretion management Stop Seroquel, hypotension appears to be sedation related. Hopefully blood pressure will improve to allow for fluid removal during HD s/p 2 units PRBC, therapeutic heparin on hold. Hold off on VTE prophylaxis dosing of heparin for the next 48 hours PEG pending Discussed in IDT, family to be updated re change of clinical status Patient if she does not improve with Vapotherm, may need intubation with MVS -Titrate supplemental oxygen to keep SpO2 90-92% -Supportive HD per Renal service -Monitor temperature curve and WCC trend - avoid nephrotoxins, dose all medications for GFR/CrCL - avoid benzodiazepines, reduce the possibility of delirium -Maintain sleep-wake cycle -Mobility, off loading, frequent turning per facility protocol to prevent pressu re ulcers -prn analgesia per pain score - VTE prophylaxis-SCDs - Monitor hemodynamics closely -Nutrition support- SBFT in nares, patient is to get PEG placement -Supportive transfusions as clinically indicated t keep HgB >7g/dL CONDITION: CRITICAL PROGNOSIS: GUARDED CODE STATUS: FULL CODE The high probability of a clinically significant, sudden or life threatening deterioration of the multiple systems required my full and direct attention, intervention and personal management. The aggregate critical care time was [35] minutes. This time is in addition to time spent performing reported procedures but includes the following: [X] Data Review and interpretation [X] Patient assessment and monitoring of vital signs [X] Documentation [X] Medication orders and management Subjective Date of service: 05/01/22 Principal diagnosis: AHRF; Shock; AMS; SVT; NSTEMI; ESRD; Protein calorie malnutrition Interval history: Seen and examined at bedside; 24hour events reviewed; nursing and respiratory care staff consulted; no adverse overnight events reported to me; resting in bed;on Levophed at 2mcg, No fevers, no vomiting, no diarrhea Right femoral CVL for vasopressor support. Upper airway sounds unable to clear secretions, lethargic. Objective Vital Signs - 12hr 04/30/22 04/30/22 04/30/22 22:59 23:00 23:10 Temperature Pulse Rate 117 H 117 H 118 H Respiratory 30 H 29 H 33 H Rate Blood Pressure 93/54 93/54 O2 Sat by Pulse 96 96 94 Oximetry 04/30/22 04/30/22 05/01/22 23:48 23:58 00:00 Temperature 100.5 F H Pulse Rate 116 H Respiratory 21 Rate Blood Pressure 92/50 O2 Sat by Pulse 88 93 Oximetry 05/01/22 05/01/22 05/01/22 01:00 02:00 02:45 Temperature Pulse Rate 116 H 114 H 112 H Respiratory 34 H 30 H 26 H Rate Blood Pressure 91/49 95/52 95/47 O2 Sat by Pulse 95 95 97 Oximetry 05/01/22 05/01/22 05/01/22 03:00 03:16 03:30 Temperature Pulse Rate 109 H 116 H 112 H Respiratory 26 H 27 H 30 H Rate Blood Pressure 71/35 112/63 103/54 O2 Sat by Pulse 97 96 99 Oximetry 05/01/22 05/01/22 05/01/22 03:39 03:45 04:00 Temperature 98.9 F Pulse Rate 111 H 122 H Respiratory 22 35 H Rate Blood Pressure 93/48 75/38 O2 Sat by Pulse 99 100 Oximetry 05/01/22 05/01/22 05/01/22 04:15 04:30 04:46 Temperature Pulse Rate 120 H 121 H Respiratory 24 28 H 36 H Rate Blood Pressure 122/73 127/75 75/38 O2 Sat by Pulse 97 96 95 Oximetry 05/01/22 05/01/22 05/01/22 05:00 05:16 05:30 Temperature Pulse Rate 125 H 125 H 125 H Respiratory 17 15 13 Rate Blood Pressure 137/74 144/81 141/64 O2 Sat by Pulse 96 97 95 Oximetry 05/01/22 05/01/22 05/01/22 05:46 06:00 07:26 Temperature 98.1 F Pulse Rate 117 H 111 H Respiratory 26 H 22 Rate Blood Pressure 103/47 89/35 O2 Sat by Pulse 97 95 Oximetry Constitutional: lethargic, appears uncomfortable, other (eldely female with mildly increased respiratory effort at rest) Eyes: non-icteric ENT: oropharynx moist, oropharyngeal exudate pre (clear frothy) Neck: supple, no lymphadenopathy, no JVD Effort: mildly labored Ascultation: Bilateral: clear, diminished breath sounds, rhonchi, other (referred upper airway sounds) Percussion: Bilateral: not dull Cardiovascular: regular rate and rhythm, other (S1,S2) Gastrointestinal: normoactive bowel sounds, soft, non-tender, non-distended Integumentary: normal Extremities: no cyanosis, no edema, pulses normal, no ischemia or petechiae Neurologic: non-focal exam (grossly), pupils equal and round, other (lethargic, moaning and groaning) Psychiatric: other (flat affect) CBC and BMP: 05/02/22 05:54 05/02/22 05:54 ABG, PT/INR, D-dimer: PT/INR, D-dimer PT 17.9 Sec. (12.2-14.9) H 04/19/22 19:40 INR 1.28 (0.87-1.13) H 04/19/22 19:40 Abnormal lab findings: Abnormal Labs 04/19/22 04/19/22 04/19/22 04:53 04:53 04:53 WBC RBC 3.06 L Hgb 8.6 L Hct 28.0 L RDW 16.3 H Rhea % (Auto) 11.3 H Lymph # (Auto) PT INR APTT Heparin Anti-Xa Level Sodium Potassium 5.1 H Chloride Carbon Dioxide 21 L BUN 94 H Creatinine 6.3 H Glucose POC Glucose Phosphorus Magnesium Troponin T 0.415 H* Albumin 2.7 L Free T4 0.28 L Crossmatch 04/19/22 04/19/22 04/20/22 19:40 19:40 05:30 WBC 4.1 L RBC 2.97 L Hgb 8.5 L 8.2 L Hct 27.8 L 27.1 L RDW 17.0 H Rhea % (Auto) 15.2 H Lymph # (Auto) 1.1 L PT 17.9 H INR 1.28 H APTT 199.1 H* Heparin Anti-Xa Level Sodium Potassium Chloride Carbon Dioxide BUN Creatinine Glucose POC Glucose Phosphorus Magnesium Troponin T Albumin Free T4 Crossmatch 04/20/22 04/20/22 04/21/22 05:30 18:23 00:29 WBC RBC Hgb Hct RDW Rhea % (Auto) Lymph # (Auto) PT INR APTT Heparin Anti-Xa Level 0.17 L Sodium Potassium Chloride Carbon Dioxide 21 L BUN 95 H Creatinine 6.6 H Glucose 139 H POC Glucose Phosphorus Magnesium 2.60 H Troponin T Albumin 2.4 L Free T4 Crossmatch 04/21/22 04/21/22 04/22/22 04:00 04:00 03:45 WBC RBC 2.74 L Hgb 7.7 L Hct 24.7 L RDW 16.6 H Rhea % (Auto) Lymph # (Auto) PT INR APTT Heparin Anti-Xa Level < 0.10 L Sodium 133 L Potassium Chloride Carbon Dioxide 20 L BUN 89 H Creatinine 6.6 H Glucose 131 H POC Glucose Phosphorus 6.40 H Magnesium 2.50 H Troponin T Albumin Free T4 Crossmatch 04/22/22 04/22/22 04/22/22 03:45 12:13 14:30 WBC RBC Hgb Hct RDW Rhea % (Auto) Lymph # (Auto) PT INR APTT Heparin Anti-Xa Level 0.11 L 0.11 L Sodium 136 L Potassium Chloride Carbon Dioxide 18 L BUN 90 H Creatinine 6.3 H Glucose 121 H POC Glucose Phosphorus 6.50 H Magnesium Troponin T Albumin Free T4 Crossmatch 04/22/22 04/23/22 04/23/22 23:08 02:17 04:10 WBC RBC Hgb 7.3 L Hct 23.3 L RDW Rhea % (Auto) Lymph # (Auto) PT INR APTT Heparin Anti-Xa Level 0.14 L Sodium Potassium Chloride Carbon Dioxide BUN Creatinine Glucose POC Glucose 153 H Phosphorus Magnesium Troponin T Albumin Free T4 Crossmatch 04/23/22 04/23/22 04/23/22 04:10 06:09 23:22 WBC RBC Hgb Hct RDW Rhea % (Auto) Lymph # (Auto) PT INR APTT Heparin Anti-Xa Level Sodium Potassium Chloride Carbon Dioxide BUN 36 H Creatinine 3.4 H Glucose 131 H POC Glucose 141 H 114 H Phosphorus Magnesium Troponin T Albumin Free T4 Crossmatch 04/24/22 04/24/22 04/24/22 02:10 04:00 04:00 WBC RBC 2.48 L Hgb 7.1 L Hct 22.6 L RDW 16.9 H Rhea % (Auto) Lymph # (Auto) PT INR APTT Heparin Anti-Xa Level 0.12 L Sodium 134 L Potassium Chloride Carbon Dioxide BUN 42 H Creatinine 3.9 H Glucose 141 H POC Glucose Phosphorus Magnesium Troponin T Albumin Free T4 Crossmatch 04/24/22 04/24/22 04/24/22 05:03 10:20 11:24 WBC RBC Hgb Hct RDW Rhea % (Auto) Lymph # (Auto) PT INR APTT Heparin Anti-Xa Level < 0.10 L Sodium Potassium Chloride Carbon Dioxide BUN Creatinine Glucose POC Glucose 142 H 144 H Phosphorus Magnesium Troponin T Albumin Free T4 Crossmatch 04/25/22 04/25/22 04/25/22 00:15 04:11 04:11 WBC 4.4 L RBC 2.38 L Hgb 6.7 L Hct 21.7 L RDW 17.2 H Rhea % (Auto) Lymph # (Auto) PT INR APTT Heparin Anti-Xa Level Sodium 134 L Potassium Chloride 97.1 L Carbon Dioxide BUN 47 H Creatinine 4.3 H Glucose 106 H POC Glucose 136 H Phosphorus Magnesium Troponin T Albumin Free T4 Crossmatch 04/25/22 04/25/22 04/25/22 06:01 15:30 22:44 WBC RBC Hgb 8.8 L Hct 28.1 L D RDW Rhea % (Auto) Lymph # (Auto) PT INR APTT Heparin Anti-Xa Level Sodium Potassium Chloride Carbon Dioxide BUN Creatinine Glucose POC Glucose 137 H Phosphorus Magnesium Troponin T Albumin Free T4 Crossmatch See Detail 04/26/22 04/27/22 04/27/22 04:20 04:45 04:45 WBC RBC 2.81 L 3.13 L Hgb 8.0 L 9.0 L Hct 25.4 L 29.1 L RDW 16.2 H 17.4 H Rhea % (Auto) Lymph # (Auto) PT INR APTT Heparin Anti-Xa Level Sodium 131 L Potassium Chloride 93.5 L Carbon Dioxide BUN 44 H Creatinine 3.9 H Glucose 135 H POC Glucose Phosphorus Magnesium Troponin T Albumin Free T4 Crossmatch 04/27/22 04/28/22 04/28/22 23:38 05:26 07:54 WBC 11.1 H RBC 2.40 L Hgb 6.9 L Hct 22.1 L D RDW 17.2 H Rhea % (Auto) Lymph # (Auto) PT INR APTT Heparin Anti-Xa Level Sodium Potassium Chloride Carbon Dioxide BUN Creatinine Glucose POC Glucose 229 H 169 H Phosphorus Magnesium Troponin T Albumin Free T4 Crossmatch 04/28/22 04/28/22 04/29/22 12:31 17:54 00:49 WBC RBC Hgb Hct RDW Rhea % (Auto) Lymph # (Auto) PT INR APTT Heparin Anti-Xa Level Sodium Potassium Chloride Carbon Dioxide BUN Creatinine Glucose POC Glucose 132 H 138 H 189 H Phosphorus Magnesium Troponin T Albumin Free T4 Crossmatch 04/29/22 04/29/22 04/29/22 06:42 10:54 10:54 WBC 11.8 H RBC 2.93 L Hgb 8.6 L Hct 26.2 L RDW 16.8 H Rhea % (Auto) Lymph # (Auto) PT INR APTT Heparin Anti-Xa Level Sodium 129 L Potassium Chloride 91.5 L Carbon Dioxide BUN 46 H Creatinine 3.1 H Glucose 180 H POC Glucose 196 H Phosphorus Magnesium Troponin T Albumin Free T4 Crossmatch 04/29/22 04/29/22 04/30/22 12:03 23:32 05:57 WBC RBC Hgb Hct RDW Rhea % (Auto) Lymph # (Auto) PT INR APTT Heparin Anti-Xa Level Sodium Potassium Chloride Carbon Dioxide BUN Creatinine Glucose POC Glucose 169 H 170 H 151 H Phosphorus Magnesium Troponin T Albumin Free T4 Crossmatch 04/30/22 04/30/22 04/30/22 11:28 16:39 23:22 WBC RBC Hgb Hct RDW Rhea % (Auto) Lymph # (Auto) PT INR APTT Heparin Anti-Xa Level Sodium Potassium Chloride Carbon Dioxide BUN Creatinine Glucose POC Glucose 159 H 147 H 170 H Phosphorus Magnesium Troponin T Albumin Free T4 Crossmatch 05/01/22 05/01/22 04:00 05:34 WBC RBC 2.92 L Hgb 8.4 L Hct 26.7 L RDW 16.6 H Rhea % (Auto) Lymph # (Auto) PT INR APTT Heparin Anti-Xa Level Sodium Potassium Chloride Carbon Dioxide BUN Creatinine Glucose POC Glucose 140 H Phosphorus Magnesium Troponin T Albumin Free T4 Crossmatch Allied health notes reviewed: nursing
--- NOTE | 2022-05-01 11:20 | XRay Report ---
CHEST 1 VIEW 05/01/2022 10:13 AM INDICATION / CLINICAL INFORMATION: resp joel;ure, pleural effusion. COMPARISON: 04/27/2022 FINDINGS: SUPPORT DEVICES: GI tube terminates in the mid stomach HEART / MEDIASTINUM: Mild cardiomegaly LUNGS / PLEURA: Mild pulmonary venous congestion, moderate right pleural effusion and trace left pleu ral effusion are identified. Atelectatic changes are noted in both lower lung zones. No pneumothorax. ADDITIONAL FINDINGS: No significant additional findings. IMPRESSION: 1. Mild CHF. No overwhelming change since 1121. Signer Name: Magen Silverio Jr, MD Signed: 05/01/2022 11:16 AM Workstation Name: [id number]
--- NOTE | 2022-05-01 13:14 | Progress Note ---
<COLLETTE HANNA - Last Filed: 05/02/22 23:08> Assessment and Plan Assessment and plan: This is a 66-year-old female with known past medical history of HTN, GERD, Seizure disorder, vascular dementia, ESRD on HD(TTS), OA, bipolar disorder, schizophrenia, anxiety disorder, and limited mobility admitted for Acute hypxic respiratory, hypotension, and SVT s/p X2 doses adenosine and cardioversion. Hospital Course to Date: 04/20: Patient went into Afib with RVR overnight, now on amiodarone gtt per yan cuello. Patient remains in AFib with RVR this am, HR in the 120-140s. BP marginal on Levophed gtt, currently not a candidate for BB. Midodrine increased to 15mg TID. 2D Echo pending. On heparin gtt per protocol. No HD today per nephro due to hypotension and tachycardia. 04/21: Converted to SR this am, remains on Amiodarone and heparin. Awaiting cardio final recommendations. Still on Levophed gtt for low BP, given patient history of chronic hypotension, Wean pressor for MAP goal of 60s. Patient is pocketing foods, currently NPO, awaiting speech eval and treat. 04/22: Patient passed speech swallow eval yesterday, however, patient is refusing PO intakes including meds. Will insert DHT for nutrition and meds administration. Patient remains in SR this am, amiodaron gtt transitioned to PO per cardio. Patient remains on heparin and Levophed gtt. Patient has not received PO midrodrine for 24hrs, resume meds once DHT is inserted. Keep femoral CVC for another 24hrs, anticipating will be able to wean off pressor once patient receive midodrine. Will reassess in the morning. No HD overnight, unable to cannulate AVF, plan to attempt again today per Nephro. Possible IR/Vascular surgery consult if unsuccessful again today. 04/23: Mentation a lot better this am. DHT was inserted, meds resumed and TF initiated. Levophed gtt increased overnight due to worsen hypotension, suspected it is due to sedative agents. Seroquel decreased to 200mg BID and scheduled ativan switched to PRN. Continue midodrine TID and wean off levophed gtt for MAP goal of 60. Patient tolerated HD yesterday, continue iHD per Nephrology. CCM recommendations noted, Chest US ordered for pleural effusion. 04/24: RN instructed to wean Levophed off, goal MAP of 60. Heparin drip stopped due to decreasing hemoglobin. 04/25: had cleared the patient for pured diet which will be started today, hemodialysis planned for today, patient was to be anemic and will receive 1 unit PRBC with HD. We will increase midodrine to 20 mg 3 times daily if patient becomes hypotensive during dialysis. Per CCM. Decrease in seroqoul but will increase if needed 04/26: Patient agreeable to PEG, GI consulted for placement. Femoral line removed 04/27: No acute events reported overnight, patient has been cardiac cleared for PEG tube placement. Possible PEG in the a.m. This afternoon attempted to place IJ CVL which was unsuccessful and Dr. Mcguire ultimately placed femoral CVL for the initiation of Levophed. HD scheduled for today. 04/28: Patient initially started on Levophed yesterday and she received a femoral CVL. 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 Vascular surgery was consulted. Patient also noted to be anemic and received 1 unit PRBC today. 04/29: Possible hemodialysis today, patient was able to be weaned off of Levophed today. Hemoglobin responded well to 1 unit PRBC. Awaiting trach/PEG placement. Patient will not need to be started on heparin drip per vascular surgery. No acute events reported overnight. 04/30: HD yesterday without removal of fluids, patient needs NT suctioning. Updated son today. 05/01: Patient with increase mucous production and is unable to fully clear her airway, Rhonchi auscultated throughout her lungs this am. SPO2 at 90 to 94% on 3L NC. D/W CCM, patient is high risk for aspiration will placed patient on heated HF at 40L for now instead of Bipap. Nasal bleeding also noted, mostly due to NT suctioning. Refrain from NT suctioning for now due to bleeding, only oral suctioning. PO seroquel held this amP atient is AAO, appropriate, and following commands. Levophed gtt weaned off, patient remains hemodynamically stable. Will discuss Nephro for possible fluid removal tonight or early tomorrow. Very low threshold for intubation. Patient's condition and plan of care, including possible intubation, thoroughly discussed with patient's son-Raymundo Randolph at . Patient's son verbalized understanding of the info provided and agreed with intubation if necessary. Assessement and Plan #Atrial Fibrillation with RVR #Supraventricular Tachycardia s/p Cardioversion #Acute on Chronic Hypotension #NSTEMI Type 2 - Presented with AMS, Tachycardia, and hypotension requiring pressors - was found in SVT in the ED s/p unsuccessful X2 doses of adenosine then cardioversion. - Patient initially converted to SR post cardioversion, then went into afib RVR in the ICU - Elevated troponin most likely related to ESRD - Cardiology consulted, appreciate recommendations - s/p Amio gtt now on PO per Cardio - Levophed gtt weaned off this am - Continue Midodrine TID - Continue blood pressure monitor per protocol - Titrate pressors for MAP goal of 60 - Not a candidate for MARGOTH, ARB, and BB due to hypotension - 2D Echo EF 60-65% - on Lipitor and Plavix - CCM also following #Acute Hypoxic Respiratory Failure #Moderate Pleural Effusion - with worsening respiratory status this am - Patient with increase mucous production and is unable to fully clear her airway - Rhonchi auscultated throughout her lungs this am. SPO2 at 90 to 94% on 3L NC. - D/W CCM, patient is high risk for aspiration will placed patient on heated HF at 40L for now instead of Bipap. - With mild nasal bleeding today. Refrain from NT suctioning for now due to bleeding, Oral suctioning only - Continue O2 supplementation and wean as tolerated - Continue SPO2 monitoring for SPO2 goal above 92% - Low threshold for intubion - Stat ABG pending #Acute Metabolic Encephalopathy #H/o Vascular Dementia #Severe Anxiety #Bipolar Disorder & Schizophrenia - Presented with AMS, probably due to above - More AAO, appropriate, following commands - Continue home meds - Seroquel held due to increase sedation - PRN Analgesia for pain control - Maintenance of sleep-wake cycle - Mental Health/Psych on consult #End-Stage Renal Disease(ESRD) on HD - Nephrology on consult, appreciated recommendation - HD on 04/29 without removal of fluids - Patient now with worsening respiratory status, c/f worsening fluid overload - Will discuss Nephro for possible fluid removal tonight or early tomorrow - Strict intake and output - Avoid nephrotoxic medications; Renally dose medications - Monitor and replace electrolytes as needed #Anemia of Chronic Disease #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 Plan for possible vascular intervention sometimes this week - AC on hold due to worsen anemia #H/o Seizure Disorder - Resume home meds #Dysphagia #Moderate Protein Caloric Malnutrition - Failed speech swallow- they recommended PEG-Tube - GI consulted, appreciate recommendation - Plan for PEG-Tube placed on Sunday - On enteral nutrition - Nutrition consulted #GI/DVT Prophylaxis - PPI- Protonix - SCDs to bilateral lower extremities while in bed #Advance Care Planning - Disease education data, care plan, diagnoses, and prognosis were discussed with patient's son at the bedside. Patient is a FULL code. Patient acknowledged understanding and agreed with current care plan. The high probability of a clinically significant, sudden or life threatening deterioration of the [multiple] system(s) required my full and direct attention, intervention and personal management. The aggregate critical care time was [90] minutes. This time is in addition to time spent performing reported procedures but includes the following: [x] Data Review and interpretation [x] Patient assessment and monitoring of vital signs [x] Documentation [x] Medication orders and management Disposition Plan: ICU Total Time Spent with Patient (Minutes): 90 History Interval history: Patient seen and examined at the bedside. AAO, appropriate,a nd following commands. However, appears to be in mild respiratory distress. Patient with increase mucous production and is unable to fully clear her airway, Rhonchi auscultated throughout her lungs this am. SPO2 at 90 to 94% on 3L NC. Nasal ble eding also noted, mostly due to NT suctioning. Off pressors this am, VSS. Hospitalist Physical - Physical exam Narrative exam: General appearance: Present: mild distress, well-nourished, obese - EENT Eyes: Present: PERRL ENT: hearing intact, poor dentition - Neck Neck: Present: normal ROM - Respiratory Respiratory effort: normal Respiratory: bilateral: diminished - Cardiovascular Rhythm: irregularly irregular Heart Sounds: Present: S1 & S2 - Extremities Extremities: no ischemia, pulses intact, pulses symmetrical Extremity abnormal: edema - Peripheral Assessment Generalized Edema Type: pitting Edema Degree: 2+ Capillary Refill: < 3 seconds Skin Temperature: Warm Peripheral Pulses: within normal limits Right Upper Extremity Edema Type: pitting Edema Degree: 3+ Capillary Refill: < 3 seconds Skin Temperature: Warm Peripheral Pulses: within normal limits - Abdominal General gastrointestinal: soft, non-distended, normal bowel sounds - Integumentary Integumentary: Present: warm, dry - Psychiatric Psychiatric: appropriate mood/affect, cooperative, other (Awake and alert) - Neurologic Neurologic: moves all extremities, other (Awake and alert) - Allied Health Allied health notes reviewed: nursing, case management - Constitutional Vitals: Temp Pulse Resp BP Pulse Ox 98.6 F 108 H 22 108/43 96 05/01/22 12:00 05/01/22 12:15 05/01/22 12:15 05/01/22 12:15 05/01/22 12:15 HEART Score - HEART Score Troponin: Troponin T 0.415 ng/mL (0.00-0.029) H* 04/19/22 04:53 Results - Labs CBC & Chem 7: 05/02/22 05:54 05/02/22 05:54 Labs: Laboratory Last Values WBC 11.0 K/mm3 (4.5-11.0) 05/01/22 04:00 RBC 2.92 M/mm3 (3.65-5.03) L 05/01/22 04:00 Hgb 8.4 gm/dl (10.1-14.3) L 05/01/22 04:00 Hct 26.7 % (30.3-42.9) L 05/01/22 04:00 MCV 91 fl (79-97) 05/01/22 04:00 MCH 29 pg (28-32) 05/01/22 04:00 MCHC 31 % (30-34) 05/01/22 04:00 RDW 16.6 % (13.2-15.2) H 05/01/22 04:00 Plt Count 194 K/mm3 (140-440) 05/01/22 04:00 Lymph % (Auto) 26.7 % (13.4-35.0) 04/20/22 05:30 Clarke % (Auto) 15.2 % (0.0-7.3) H 04/20/22 05:30 Eos % (Auto) 3.8 % (0.0-4.3) 04/20/22 05:30 Baso % (Auto) 1.2 % (0.0-1.8) 04/20/22 05:30 Lymph # (Auto) 1.1 K/mm3 (1.2-5.4) L 04/20/22 05:30 Clarke # (Auto) 0.6 K/mm3 (0.0-0.8) 04/20/22 05:30 Eos # (Auto) 0.2 K/mm3 (0.0-0.4) 04/20/22 05:30 Baso # (Auto) 0.0 K/mm3 (0.0-0.1) 04/20/22 05:30 Seg Neutrophils % 53.1 % (40.0-70.0) 04/20/22 05:30 Seg Neutrophils # 2.2 K/mm3 (1.8-7.7) 04/20/22 05:30 PT 17.9 Sec. (12.2-14.9) H 04/19/22 19:40 INR 1.28 (0.87-1.13) H 04/19/22 19:40 APTT 199.1 Sec. (24.2-36.6) H* 04/19/22 19:40 Heparin Anti-Xa Level < 0.10 U.I./ml (0.3-0.7) L 04/24/22 10:20 Sodium 129 mmol/L (137-145) L 04/29/22 10:54 Potassium 3.8 mmol/L (3.6-5.0) 04/29/22 10:54 Chloride 91.5 mmol/L (98-107) L 04/29/22 10:54 Carbon Dioxide 26 mmol/L (22-30) 04/29/22 10:54 Anion Gap 15 mmol/L 04/29/22 10:54 BUN 46 mg/dL (7-17) H 04/29/22 10:54 Creatinine 3.1 mg/dL (0.6-1.2) H 04/29/22 10:54 Estimated GFR 18 ml/min 04/29/22 10:54 BUN/Creatinine Ratio 15 % 04/29/22 10:54 Glucose 180 mg/dL (65-100) H 04/29/22 10:54 POC Glucose 140 mg/dL (70-105) H 05/01/22 05:34 Lactic Acid 1.60 mmol/L (0.7-2.0) 04/19/22 07:14 Calcium 9.0 mg/dL (8.4-10.2) 04/29/22 10:54 Phosphorus 2.50 mg/dL (2.5-4.5) 04/24/22 04:00 Magnesium 1.80 mg/dL (1.7-2.3) 04/24/22 04:00 Total Bilirubin 0.30 mg/dL (0.1-1.2) 04/20/22 05:30 AST 11 units/L (5-40) 04/20/22 05:30 ALT 7 units/L (7-56) 04/20/22 05:30 Alkaline Phosphatase 101 units/L (35-129) 04/20/22 05:30 Ammonia 25.0 umol/L (25-60) 04/19/22 04:53 Troponin T 0.415 ng/mL (0.00-0.029) H* 04/19/22 04:53 Total Protein 6.4 g/dL (6.3-8.2) 04/20/22 05:30 Albumin 2.4 g/dL (3.9-5) L 04/20/22 05:30 Albumin/Globulin Ratio 0.6 % 04/20/22 05:30 TSH 1.700 mlU/mL (0.270-4.200) 04/19/22 04:53 Free T4 0.28 ng/dL (0.76-1.46) L 04/19/22 04:53 Total Cortisol 24.4 mcg/dL () 04/27/22 04:45 Hepatitis A IgM Ab Non-reactive (NonReactive) 04/19/22 04:53 Hep Bs Antigen Non-reactive (Negative) 04/19/22 04:53 Hep B Core IgM Ab Non-reactive (NonReactive) 04/19/22 04:53 Hepatitis C Antibody Non-reactive (NonReactive) 04/19/22 04:53 Blood Type A POSITIVE 04/25/22 15:30 Antibody Screen Negative 04/25/22 15:30 Crossmatch See Detail 04/25/22 15:30 Cleary/IV: Voiding Method External Female Catheter Active Medications - Current Medications Current Medications: Generic Name Dose Route Start Last Admin Trade Name Freq PRN Reason Stop Dose Admin Acetaminophen 650 mg 04/22/22 20:12 04/29/22 09:43 Acetaminophen 325 Mg/10.15 Ml Oral Liqd Unit Dose PO 650 mg Q6H PRN Administration Pain MILD(1-3)/Fever >100.5/DRAKE Albumin Human 25 gm 04/21/22 13:00 04/22/22 16:31 Albumin Human 25% (25 Gm/100 Ml) Inj IV 25 gm BIANCA PRN Administration Hypotension Albuterol 2.5 mg 04/21/22 08:30 04/24/22 16:51 Albuterol 2.5 Mg/3 Ml Nebu IH 2.5 mg Q3HRT PRN Administration Shortness Of Breath Albuterol/Ipratropium 1 ampul 04/21/22 14:00 04/30/22 19:47 Ipratropium/Albuterol Sulfate 3 Ml Ampul.Neb IH 1 ampul TIDRT CONNOR Administration Epoetin Lb-epbx 20,000 unit 04/23/22 12:00 04/25/22 20:00 Epoetin Lb-Epbx 20,000 Unit/1 Ml Vial IV 20,000 unit BIANCA PRN Administration HEMODIALYSIS NORepinephrine/NS 8 MG-250 ML 8 mg in 250 mls @ 3.75 mls/hr 04/19/22 09:00 05/01/22 12:45 Norepinephrine/Ns 8 Mg-250 Ml (Double Conc) IV 0 mcg/min TITRATE CONNOR 0 mls/hr Titration Protocol 2 MCG/MIN Sodium Chloride 100 mls @ 999 mls/hr 04/22/22 09:12 Nacl 0.9% IV BIANCA PRN Hypotension Phenylephrine HCl 100 mg/ 100 mls @ 3 mls/hr 04/27/22 14:00 Sodium Chloride IV TITR CONNOR Protocol 50 MCG/MIN Lansoprazole 30 mg 04/23/22 10:00 05/01/22 09:51 Lansoprazole 30 Mg Solutab FEEDTUBE 30 mg QDAY CONNOR Administration Lorazepam 0.5 mg 04/25/22 09:59 Lorazepam 0.5 Mg Tab FEEDTUBE QDAY PRN Anxiety Memantine 5 mg 04/25/22 10:00 05/01/22 09:50 Memantine 5 Mg Tab FEEDTUBE 5 mg BID CONNOR Administration Metoclopramide HCl 5 mg 04/19/22 09:55 Metoclopramide 10 Mg/2 Ml Inj IV Q6H PRN Nausea And Vomiting Midodrine 20 mg 04/26/22 14:00 05/01/22 08:16 Midodrine 10 Mg Tab FEEDTUBE 20 mg TID CONNOR Administration Naloxone HCl 0.1 mg 04/19/22 09:55 Naloxone 0.4 Mg/1 Ml Inj IV Q2MIN PRN Res Rate </= 8 or 02 SAT < 92% Polyethylene Glycol 17 gm 04/28/22 10:00 05/01/22 09:49 Polyethylene Glycol 3350 17 Gm Powder PO 17 gm QDAY CONNOR Administration Risperidone 0.5 mg 04/25/22 11:00 05/01/22 09:50 Risperidone 1 Mg Tab FEEDTUBE 0.5 mg BID CONNOR Administration Senna 17.2 mg 04/23/22 10:00 05/01/22 09:51 Sennosides 8.6 Mg Tab FEEDTUBE 17.2 mg BID CONNOR Administration Sodium Chloride 10 ml 04/19/22 12:00 05/01/22 09:52 Sodium Chloride 0.9% 10 Ml Flush Syringe IV 10 ml BID CONNOR Administration Sodium Chloride 10 ml 04/19/22 11:19 Sodium Chloride 0.9% 10 Ml Flush Syringe IV PRN PRN LINE FLUSH Valproic Acid 750 mg 04/22/22 22:00 05/01/22 09:50 Valproic Acid 250 Mg/5 Ml Oral Liqd FEEDTUBE 750 mg BID CONNOR Administration Nutrition/Malnutrition Assess - Dietary Evaluation Nutrition/Malnutrition Findings: Nutrition Notes Start: 04/19/22 17:39 Freq: Status: Active Protocol: Document 05/01/22 12:29 MIRIAN (Rec: 05/01/22 13:08 MIRIAN [email or web address]) Nutrition Notes Initial or Follow up Reassessment Current Diagnosis CKD (stage V CKD),Hypertension ,Respiratory Failure, Malnutrition Other Pertinent Diagnosis Metabolic Encephalopathy, ESRD +HD, Anemia, NSTEMI II, SIRS, Dysphagia... Current Diet NPO (since 04/28 07:18). Labs/Tests 05/01: Na 129, Cl 91.5, BUN 46 , Crea 3.1, Glu 180. Pertinent Medications 05/01: Nutritionally unremarkable. Height 5 ft 2 in Weight 54.43 kg [place] Body Weight (kg) 50.00 BMI 21.9 Weight change and time frame No body weight change reported in 12 days. Weight Status Appropriate Subjective/Other Information RD consult for routine F/U on TF tolerance/continuation. TF is on Hold, Pt has been on NPO for 3 days. Pt was scheduled for PEG-tube placement on 04/28; however, today Pt is still waiting for procedure, apparently has been rescheduled for 05/03. I spoke with RN over the phone and will ask MD if TF can be resumed mean while; will check later again. Pt is on Nasal Cannula, O2 saturation @ 94%, according to Physical Assessment History notes. Pt has missing teeth and caries, according to Physical Assessment History notes. Pt presents bilateral-UE pitting edema 3+, according to Physical Assessment History notes. Percent of energy/protein needs met: Pt currently on NPO. Prescribed Nepro w/CARBSTEADY @ 30 ml/hr provides for energy /protein needs (1,269 Kcal/58 g) during LOS, 102% Kcal; 89% AA. Burn Absent Trauma Absent GI Symptoms None Difficulty In Swallowing,Chewing Food Allergy Yes Skin Integrity/Comment Healing Sacral wound, intact. Current % PO Other Minimum of two criteria No Fluid Accumulation N/A Reduced Developmental Therapist Strength N/A (non-severe) Protein-Calorie Malnutrition N\A #1 Nutrition Diagnosis Swallowing difficulty Diagnosis Progress(for reassessment Continues documentation) Is patient on ventilator? No Is Patient Ambulatory and/or Out of Bed No REE-([facility]-confined to bed) [phone] Calculation Used for Recommendations [facility] Additional Notes Protein: >1.2 g/Kg ABW; >65 g/ day. Fluids: 1-1.5 L/day, or as per MD. Nutrition Intervention Nutrition Support: On Hold. Goal #1 Provide at least 75% of energy /protein needs through Enteral Feeding during LOS. Follow-Up By: 05/03/22 Additional Comments Continue monitoring TF tolerance, PEG-tube placement, and BM. <AMAURY KIM - Last Filed: 05/08/22 11:23> History Interval history: I saw and evaluated the patient. I agree with the findings and the plan of care as documented in the Nurse Practitioner's~note, with the following corrections and additions. Hospitalist Physical - Constitutional Vitals: Temp Pulse Resp BP Pulse Ox 97.8 F 106 H 12 113/60 97 05/08/22 07:16 05/08/22 09:01 05/08/22 09:01 05/08/22 09:01 05/08/22 09:01 HEART Score - HEART Score Troponin: Troponin T 0.415 ng/mL (0.00-0.029) H* 04/19/22 04:53 Results - Labs CBC & Chem 7: 05/08/22 04:06 05/08/22 04:06 Labs: Laboratory Last Values WBC 6.6 K/mm3 (4.5-11.0) 05/08/22 04:06 RBC 2.87 M/mm3 (3.65-5.03) L 05/08/22 04:06 Hgb 8.2 gm/dl (10.1-14.3) L 05/08/22 04:06 Hct 25.8 % (30.3-42.9) L 05/08/22 04:06 MCV 90 fl (79-97) 05/08/22 04:06 MCH 29 pg (28-32) 05/08/22 04:06 MCHC 32 % (30-34) 05/08/22 04:06 RDW 16.2 % (13.2-15.2) H 05/08/22 04:06 Plt Count 118 K/mm3 (140-440) L 05/08/22 04:06 Lymph % (Auto) 26.7 % (13.4-35.0) 04/20/22 05:30 Clarke % (Auto) 15.2 % (0.0-7.3) H 04/20/22 05:30 Eos % (Auto) 3.8 % (0.0-4.3) 04/20/22 05:30 Baso % (Auto) 1.2 % (0.0-1.8) 04/20/22 05:30 Lymph # (Auto) 1.1 K/mm3 (1.2-5.4) L 04/20/22 05:30 Clarke # (Auto) 0.6 K/mm3 (0.0-0.8) 04/20/22 05:30 Eos # (Auto) 0.2 K/mm3 (0.0-0.4) 04/20/22 05:30 Baso # (Auto) 0.0 K/mm3 (0.0-0.1) 04/20/22 05:30 Add Manual Diff Complete 05/05/22 04:20 Total Counted 100 05/05/22 04:20 Seg Neutrophils % 53.1 % (40.0-70.0) 04/20/22 05:30 Seg Neuts % (Manual) 86.0 % (40.0-70.0) H 05/05/22 04:20 Band Neutrophils % 3.0 % 05/05/22 04:20 Lymphocytes % (Manual) 4.0 % (13.4-35.0) L 05/05/22 04:20 Reactive Lymphs % (Man) 0 % 05/05/22 04:20 Monocytes % (Manual) 6.0 % (0.0-7.3) 05/05/22 04:20 Eosinophils % (Manual) 1.0 % (0.0-4.3) 05/05/22 04:20 Basophils % (Manual) 0 % (0.0-1.8) 05/05/22 04:20 Metamyelocytes % 0 % 05/05/22 04:20 Myelocytes % 0 % 05/05/22 04:20 Promyelocytes % 0 % 05/05/22 04:20 Blast Cells % 0 % 05/05/22 04:20 Nucleated RBC % 1.0 % (0.0-0.9) H 05/05/22 04:20 Seg Neutrophils # 2.2 K/mm3 (1.8-7.7) 04/20/22 05:30 Seg Neutrophils # Man 11.0 K/mm3 (1.8-7.7) H 05/05/22 04:20 Band Neutrophils # 0.4 K/mm3 05/05/22 04:20 Lymphocytes # (Manual) 0.5 K/mm3 (1.2-5.4) L 05/05/22 04:20 Abs React Lymphs (Man) 0.0 K/mm3 05/05/22 04:20 Monocytes # (Manual) 0.8 K/mm3 (0.0-0.8) 05/05/22 04:20 Eosinophils # (Manual) 0.1 K/mm3 (0.0-0.4) 05/05/22 04:20 Basophils # (Manual) 0.0 K/mm3 (0.0-0.1) 05/05/22 04:20 Metamyelocytes # 0.0 K/mm3 05/05/22 04:20 Myelocytes # 0.0 K/mm3 05/05/22 04:20 Promyelocytes # 0.0 K/mm3 05/05/22 04:20 Blast Cells # 0.0 K/mm3 05/05/22 04:20 WBC Morphology Not Reportable 05/05/22 04:20 Hypersegmented Neuts Not Reportable 05/05/22 04:20 Hyposegmented Neuts Not Reportable 05/05/22 04:20 Hypogranular Neuts Not Reportable 05/05/22 04:20 Smudge Cells Not Reportable 05/05/22 04:20 Toxic Granulation Not Reportable 05/05/22 04:20 Toxic Vacuolation Not Reportable 05/05/22 04:20 Dohle Bodies Not Reportable 05/05/22 04:20 Pelger-Huet Anomaly Not Reportable 05/05/22 04:20 Ubaldo Rods Not Reportable 05/05/22 04:20 Platelet Estimate Consistent w auto 05/05/22 04:20 Clumped Platelets Not Reportable 05/05/22 04:20 Plt Clumps, EDTA Not Reportable 05/05/22 04:20 Large Platelets Not Reportable 05/05/22 04:20 Giant Platelets Not Reportable 05/05/22 04:20 Platelet Satelliting Not Reportable 05/05/22 04:20 Plt Morphology Comment Not Reportable 05/05/22 04:20 RBC Morphology Not Reportable 05/05/22 04:20 Dimorphic RBCs Not Reportable 05/05/22 04:20 Polychromasia Not Reportable 05/05/22 04:20 Hypochromasia 2+ 05/05/22 04:20 Poikilocytosis Not Reportable 05/05/22 04:20 Anisocytosis 1+ 08/19/22 04:20 Microcytosis Not Reportable 05/05/22 04:20 Macrocytosis Not Reportable 05/05/22 04:20 Spherocytes Not Reportable 05/05/22 04:20 Pappenheimer Bodies Not Reportable 05/05/22 04:20 Sickle Cells Not Reportable 05/05/22 04:20 Target Cells Not Reportable 05/05/22 04:20 Tear Drop Cells Not Reportable 05/05/22 04:20 Ovalocytes Not Reportable 05/05/22 04:20 Helmet Cells Not Reportable 05/05/22 04:20 [place] Bodies Not Reportable 05/05/22 04:20 [place] Rings Not Reportable 05/05/22 04:20 [place] Cells Not Reportable 05/05/22 04:20 Bite Cells Not Reportable 05/05/22 04:20 Crenated Cell Not Reportable 05/05/22 04:20 Elliptocytes Not Reportable 05/05/22 04:20 Acanthocytes (Spur) Not Reportable 05/05/22 04:20 Rouleaux Not Reportable 05/05/22 04:20 Hemoglobin C Crystals Not Reportable 05/05/22 04:20 Schistocytes Not Reportable 05/05/22 04:20 Malaria parasites Not Reportable 05/05/22 04:20 [place]rey Bodies Not Reportable 05/05/22 04:20 Hem Pathologist Commnt No 05/05/22 04:20 PT 17.6 Sec. (12.2-14.9) H 05/04/22 04:26 INR 1.29 (0.87-1.13) H 05/04/22 04:26 APTT 39.4 Sec. (24.2-36.6) H 05/03/22 04:24 Heparin Anti-Xa Level < 0.10 U.I./ml (0.3-0.7) L 04/24/22 10:20 ABG pH 7.482 pH Units (7.350-7.450) H 05/08/22 04:40 ABG pCO2 35.2 mm Hg 05/08/22 04:40 ABG pO2 103.9 mm Hg (80.0-90.0) H 05/08/22 04:40 ABG HCO3 25.8 mmol/L (20.0-26.0) 05/08/22 04:40 ABG O2 Saturation 98.0 % (95.0-99.0) 05/08/22 04:40 ABG O2 Content 11.1 (0.0-44) 05/08/22 04:40 ABG Base Excess 2.3 mmol/L (-2.0-3.0) 05/08/22 04:40 ABG Hemoglobin 8.1 gm/dl (12.0-16.0) L 05/08/22 04:40 ABG Carboxyhemoglobin 1.8 % (0.0-5.0) 05/08/22 04:40 ABG Methemoglobin 0.2 % (0.0-1.5) 05/08/22 04:40 Oxyhemoglobin 96.0 % (95.0-99.0) 05/08/22 04:40 FiO2 30 % 05/08/22 04:40 Sodium 132 mmol/L (137-145) L 05/08/22 04:06 Potassium 3.3 mmol/L (3.6-5.0) L 05/08/22 04:06 Chloride 93.2 mmol/L (98-107) L 05/08/22 04:06 Carbon Dioxide 28 mmol/L (22-30) 05/08/22 04:06 Anion Gap 14 mmol/L 05/08/22 04:06 BUN 36 mg/dL (7-17) H 05/08/22 04:06 Creatinine 2.9 mg/dL (0.6-1.2) H 05/08/22 04:06 Estimated GFR 20 ml/min 05/08/22 04:06 BUN/Creatinine Ratio 12 % 05/08/22 04:06 Glucose 145 mg/dL (65-100) H 05/08/22 04:06 POC Glucose 123 mg/dL (70-105) H 05/07/22 23:23 Lactic Acid 1.60 mmol/L (0.7-2.0) 04/19/22 07:14 Calcium 8.9 mg/dL (8.4-10.2) 05/08/22 04:06 Phosphorus 2.00 mg/dL (2.5-4.5) L D 05/08/22 04:06 Magnesium 1.80 mg/dL (1.7-2.3) 05/08/22 04:06 Total Bilirubin 0.30 mg/dL (0.1-1.2) 04/20/22 05:30 AST 11 units/L (5-40) 04/20/22 05:30 ALT 7 units/L (7-56) 04/20/22 05:30 Alkaline Phosphatase 101 units/L (35-129) 04/20/22 05:30 Ammonia 25.0 umol/L (25-60) 04/19/22 04:53 Troponin T 0.415 ng/mL (0.00-0.029) H* 04/19/22 04:53 Total Protein 6.4 g/dL (6.3-8.2) 04/20/22 05:30 Albumin 2.4 g/dL (3.9-5) L 04/20/22 05:30 Albumin/Globulin Ratio 0.6 % 04/20/22 05:30 Procalcitonin 42.42 ng/mL (<0.15) 05/05/22 04:20 TSH 1.700 mlU/mL (0.270-4.200) 04/19/22 04:53 Free T4 0.28 ng/dL (0.76-1.46) L 04/19/22 04:53 Total Cortisol 24.4 mcg/dL () 04/27/22 04:45 Random Vancomycin 9.6 ug/mL (0-40.0) 05/07/22 04:15 Coronavirus (PCR) Negative (Negative) 05/03/22 11:30 Hepatitis A IgM Ab Non-reactive (NonReactive) 04/19/22 04:53 Hep Bs Antigen Non-reactive (Negative) 04/19/22 04:53 Hep B Core IgM Ab Non-reactive (NonReactive) 04/19/22 04:53 Hepatitis C Antibody Non-reactive (NonReactive) 04/19/22 04:53 Blood Type A POSITIVE 05/04/22 05:30 Antibody Screen Negative 05/04/22 05:30 Crossmatch See Detail 05/04/22 05:30 Microbiology: Microbiology 05/04/22 16:30 Peripheral/Venous Blood Culture - Preliminary NO GROWTH AFTER 72 HOURS 05/03/22 10:30 Bronchial Washings - Right Lower Lobe Respiratory Culture - Final Methicillin Resist S. Aureus 05/04/22 16:30 Peripheral/Venous Blood Culture - Preliminary Coag Negative Staphylococcus Claery/IV: Voiding Method Incontinent Active Medications - Current Medications Current Medications: Generic Name Dose Route Start Last Admin Trade Name Freq PRN Reason Stop Dose Admin Acetaminophen 650 mg 04/22/22 20:12 05/03/22 23:41 Acetaminophen 325 Mg/10.15 Ml Oral Liqd Unit Dose PO 650 mg Q6H PRN Administration Pain MILD(1-3)/Fever >100.5/DRAKE Acetylcysteine 200 mg 05/05/22 14:00 05/08/22 09:15 Acetylcysteine 20% 200 Mg/1 Ml *For Inhalation Use* INHALATION 05/10/22 13:59 200 mg TID CONNOR Administration Albumin Human 25 gm 04/21/22 13:00 04/22/22 16:31 Albumin Human 25% (25 Gm/100 Ml) Inj IV 25 gm BIANCA PRN Administration Hypotension Albuterol 2.5 mg 04/21/22 08:30 04/24/22 16:51 Albuterol 2.5 Mg/3 Ml Nebu IH 2.5 mg Q3HRT PRN Administration Shortness Of Breath Albuterol/Ipratropium 1 ampul 04/21/22 14:00 05/08/22 09:15 Ipratropium/Albuterol Sulfate 3 Ml Ampul.Neb IH 1 ampul TIDRT CONNOR Administration Docusate Sodium 100 mg 05/01/22 22:00 05/07/22 21:01 Docusate Sodium 100 Mg/10 Ml Oral Liqd FEEDTUBE Not Given BID [facility] Epoetin Lb-epbx 20,000 unit 04/23/22 12:00 05/06/22 19:23 Epoetin Lb-Epbx 20,000 Unit/1 Ml Vial IV 20,000 unit BIANCA PRN Administration HEMODIALYSIS Fentanyl 50 mcg 05/03/22 10:29 05/05/22 12:23 Fentanyl 100 Mcg/2 Ml Inj IV 25 mcg Q10MIN PRN Administration ANALGESIA Sodium Chloride 100 mls @ 999 mls/hr 04/22/22 09:12 Nacl 0.9% IV BIANCA PRN Hypotension Fentanyl Citrate 2,000 mcg in 100 mls @ 2.722 mls/hr 05/03/22 11:00 Fentanyl Drip Premix IV TITR CONNOR Protocol 1 MCG/KG/HR NORepinephrine/NS 8 MG-250 ML 8 mg in 250 mls @ 3.75 mls/hr 05/03/22 13:15 05/06/22 10:06 Norepinephrine/Ns 8 Mg-250 Ml (Double Conc) IV 0 mcg/min TITRATE CONNOR 0 mls/hr Titration Protocol 2 MCG/MIN Vasopressin 20 unit/ Sodium 101 mls @ 9.09 mls/hr 05/04/22 00:30 05/06/22 11:21 Chloride IV 0 units/min TITR CONNOR 0 mls/hr Infusion 0.03 UNITS/MIN Cefepime HCl 1 gm in 100 mls @ 200 mls/hr 05/04/22 18:00 05/07/22 17:11 Cefepime/Ns 1 Gm/100 Ml IV 200 mls/hr QPM CONNOR Administration Protocol Lansoprazole 30 mg 04/23/22 10:00 05/08/22 10:59 Lansoprazole 30 Mg Solutab FEEDTUBE 30 mg QDAY CONNOR Administration Lorazepam 0.5 mg 04/25/22 09:59 Lorazepam 0.5 Mg Tab FEEDTUBE QDAY PRN Anxiety Memantine 5 mg 04/25/22 10:00 05/08/22 10:57 Memantine 5 Mg Tab FEEDTUBE 5 mg BID CONNOR Administration Metoclopramide HCl 5 mg 04/19/22 09:55 Metoclopramide 10 Mg/2 Ml Inj IV Q6H PRN Nausea And Vomiting Midodrine 20 mg 04/26/22 14:00 05/08/22 10:59 Midodrine 10 Mg Tab FEEDTUBE 20 mg TID CONNOR Administration Naloxone HCl 0.1 mg 04/19/22 09:55 Naloxone 0.4 Mg/1 Ml Inj IV Q2MIN PRN Res Rate </= 8 or 02 SAT < 92% Polyethylene Glycol 17 gm 05/03/22 10:00 05/07/22 09:43 Polyethylene Glycol 3350 17 Gm Powder FEEDTUBE 17 gm QDAY CONNOR Administration Risperidone 0.5 mg 04/25/22 11:00 05/08/22 11:00 Risperidone 1 Mg Tab FEEDTUBE 0.5 mg BID CONNOR Administration Scopolamine 1 each 05/02/22 10:00 05/05/22 09:45 Scopolamine Transdermal Patch 72 Hr TD 1 each Q3D CONNOR Administration Senna 17.2 mg 04/23/22 10:00 05/07/22 21:01 Sennosides 8.6 Mg Tab FEEDTUBE Not Given BID CONNOR Sodium Chloride 10 ml 04/19/22 12:00 05/08/22 11:00 Sodium Chloride 0.9% 10 Ml Flush Syringe IV 10 ml BID CONNOR Administration Sodium Chloride 10 ml 04/19/22 11:19 Sodium Chloride 0.9% 10 Ml Flush Syringe IV PRN PRN LINE FLUSH Sodium Phosphate 250 mg 05/08/22 10:00 05/08/22 10:57 K-Phos Neutral 250 Mg Tab FEEDTUBE 05/09/22 09:59 250 mg QID CONNOR Administration Valproic Acid 750 mg 04/22/22 22:00 05/08/22 10:59 Valproic Acid 250 Mg/5 Ml Oral Liqd FEEDTUBE 750 mg BID CONNOR Administration Nutrition/Malnutrition Assess - Dietary Evaluation Nutrition/Malnutrition Findings: Nutrition Notes Start: 04/19/22 17:39 Freq: Status: Active Protocol: Document 05/05/22 14:44 SHILA (Rec: 05/05/22 14:55 [facility] [id number]) Nutrition Notes Initial or Follow up Reassessment Current Diagnosis CKD (stage V CKD),Sepsis, Respiratory Failure Other Pertinent Diagnosis Neurogenic dysphagia, metabolic encephalopathy, vascular dementia Current Diet No diet order in chart Labs/Tests Na 130 K 3.3 BUN 24 Cr 2.3 BG 163 Phos 1.5 Pertinent Medications Colace, Senokot, Miralax, Levophed gtt, Vasopressin gtt Height 5 ft 2 in Weight 54.43 kg [place] Body Weight (kg) 50.00 BMI 21.9 Weight Status Appropriate Subjective/Other Information PEG placed yesterday. Pt remains on vent and HD support . Observed Nepro infusing at 30ml/hr. No BM documented today. Bronchoscopy performed today. Percent of energy/protein needs met: 104% energy 90% pro Burn Absent Trauma Absent #1 Nutrition Diagnosis Inadequate oral intake, Swallowing difficulty Diagnosis Progress(for reassessment Continues documentation) Is patient on ventilator? Yes Is Patient Ambulatory and/or Out of Bed No REE-([facility]-confined to bed) [phone] Calculation Used for Recommendations [facility] Additional Notes Pro needs >1.2g/kg: >65g/day Fluid needs 1-1.5L/day Nutrition Intervention Nutrition Support: Continue Nepro at 30ml/hr with 130ml water flush q4h. Kcal 1,296 Protein (gm) 58 Carbohydrates (gm) 116 Fat (gm) 69 Fluid (mL) 523 Fiber (gm) 9 Goal #1 TF tolerance Goal #2 TF to meet at least 75% energy and pro needs Follow-Up By: 05/12/22 Additional Comments F/U: stable TF, vent status, wt, BM
--- NOTE | 2022-05-01 13:18 | Gastroenterology Progress Note ---
Assessment and Plan - Patient Problems (1) Neurogenic dysphagia Current Visit: Yes Status: Acute Plan to address problem: - The patient appears stable for a PEG tube at present if no change in condition after HD tomorrow (will plan PEG Wed). - Continue tube feeds for now. Subjective Date of service: 05/01/22 Principal diagnosis: Neurogenic Dysphagia Interval history: We were reconsulted for a possible PEG tube. This was not done last week due to hypotension and hypoxia. The patient is on minimal pressors at present, and tolerating HD (due tomorrow). No issues with tube feeds. Objective - Constitutional Vitals: Temp Pulse Resp BP Pulse Ox 98.6 F 108 H 22 108/43 96 05/01/22 12:00 05/01/22 12:15 05/01/22 12:15 05/01/22 12:15 05/01/22 12:15 General appearance: no acute distress - EENT ENT: other (Dobhoff present) - Respiratory Respiratory effort: normal Respiratory: bilateral: CTA - Cardiovascular Rhythm: irregularly irregular Heart Sounds: Present: S1 & S2 - Gastrointestinal General gastrointestinal: Present: soft, non-tender, non-distended - Labs CBC & Chem 7: 05/01/22 04:00 04/29/22 10:54 Labs: Laboratory Results - last 24 hr 04/30/22 04/30/22 05/01/22 16:39 23:22 04:00 WBC 11.0 RBC 2.92 L Hgb 8.4 L Hct 26.7 L MCV 91 MCH 29 MCHC 31 RDW 16.6 H Plt Count 194 POC Glucose 147 H 170 H 05/01/22 05:34 WBC RBC Hgb Hct MCV MCH MCHC RDW Plt Count POC Glucose 140 H
[2022-05-01] MEDS ORDERED: SCOPOLAMINE TRANSDERMAL PATCH 72 HR TD ONE (15:01)
[2022-05-01] MEDS ORDERED: OXYMETAZOLINE 0.05% NASAL SPRAY NS PRN (15:05)
[2022-05-01] MEDS ORDERED: SCOPOLAMINE TRANSDERMAL PATCH 72 HR TD SCH (15:07)
[2022-05-01 15:46] LABS: ABG Base Excess 2.2 mmol/L (-2.0-3.0); ABG HCO3 27.8 mmol/L (20.0-26.0); ABG PCO2 46.9 mm Hg; ABG PH 7.391 pH Units (7.350-7.450); ABG PO2 74.2 mm Hg (80.0-90.0)
[2022-05-01 15:53] LABS: ABG Methemoglobin 0.4 % (0.0-1.5); ABG Oxygen Saturation 96.9 % (95.0-99.0)
[2022-05-01] MEDS ORDERED: GLYCOPYRROLATE 0.4 MG/2 ML INJ IV SCH (16:00)
[2022-05-01] MEDS: DOCUSATE SODIUM 100 MG/10 ML ORAL LIQD FEEDTUBE SCH (21:30)
[2022-05-02 06:45] LABS: Hematocrit 25.9 % (30.3-42.9); Hemoglobin 8.3 gm/dl (10.1-14.3); Mean Corpuscular HGB Conc 32 % (30-34); Mean Corpuscular Volume 91 fl (79-97); Platelet Count 180 K/mm3 (140-440); Red Blood Count 2.85 M/mm3 (3.65-5.03); Red Cell Distribution Width 16.5 % (13.2-15.2)
[2022-05-02 07:33] LABS: Calcium 9.5 mg/dL (8.4-10.2)
[2022-05-02] MEDS: IPRATROPIUM/ALBUTEROL SULFATE 3 ML AMPUL.NEB IH SCH ×3 (08:34→21:08)
[2022-05-02 08:43] LABS: Calcium 9.6 mg/dL (8.4-10.2)
[2022-05-02] MEDS: MIDODRINE 10 MG TAB FEEDTUBE SCH ×3 (08:43→21:19)
--- NOTE | 2022-05-02 08:44 | Progress Note ---
Assessment and Plan Acute hypoxemic respiratory failure on High flow oxygen therapy s/p Bronchoscopy Acute on Chronic Hypotension- possibly secondary to sepsis Acute on Chronic Metabolic Encephalopathy Possible Shock Syndrome SVT Elevated troponin Bipolar disorder Schizophrenia, Hyperkalemia ESRD on hemodialysis Anemia of chronic disease, Type 2 NSTEMI GERD Subclinical Hypothyroidism Moderate protein caloric malnutrition -Titrate supplemental oxygen to keep SpO2 90-92% -CXR, ABG as clinically indicated - Aspiration precautions, HOB >40 - continue bronchodilators with pulmonary hygiene per RT - wean per pulmonary driven protocols otherwise - enteral nutrition at goal rate as tolerated - femoral CVL replaced as no other viable site for access - Albumin 25 gms of 25% solution prn with dialysis - continue HD/UF per nephrology prescription for toxin and volume clearance - continue accuchecks with glycemic control per SSI (While critically ill target blood glucose of 140-180 mg/dL; avoid hypoglycemia) - avoid nephrotoxins, renally dose all medications - continue to avoid benzodiazepines, reduce the possibility of delirium - prn analgesia per CPOT score - Maintenance of sleep-wake cycle, avoid delirium - Stress ulcer (Lansoprazole) - mobility protocol, off loading and frequent turning per facility protocol to prevent pressure ulcers - Monitor hemodynamics closely - continue other care per attending / other consultants CONDITION: CRITICAL PROGNOSIS: GUARDED CODE STATUS: FULL CODE The high probability of a clinically significant, sudden or life-threatening deterioration of the [respiratory, cardiovascular, renal & neurologic] system(s) required my full and direct attention, intervention and personal management. The aggregate critical care time was [35] minutes without overlap. Time includes spent on; [x] Data Review and interpretation [x] Patient assessment and monitoring of vital signs [x] Documentation [x] Medication orders and management Subjective Date of service: 05/02/22 Principal diagnosis: AHRF; Shock; AMS; SVT; NSTEMI; ESRD; Protein calorie malnutrition Interval history: Seen and examined at bedside; 24hour events reviewed; nursing and respiratory care staff consulted; no adverse overnight events reported to me; resting in bed;off vasopressors; No fevers, no vomiting, no diarrhea Right femoral CVL for access Upper airway sounds unable to clear secretions, lethargic. Remains on HHFL at 40% and 40L, mentation is unchanged. HD at the bedside, plan for possible UF Plan for possible PEG-tube placement by GI tomorrow, NPO after MN. Possible fistulogram for RIJ thrombus on or sunday per Vascular Surgery. Objective Vital Signs - 12hr 05/01/22 05/01/22 05/01/22 20:45 21:00 21:15 Temperature Pulse Rate 101 H 101 H 102 H Respiratory 20 20 20 Rate Respiratory Rate [ generalized] Blood Pressure 153/74 128/62 127/60 O2 Sat by Pulse 97 97 97 Oximetry 05/01/22 05/01/22 05/01/22 21:30 21:45 22:00 Temperature Pulse Rate 103 H 106 H 102 H Respiratory 18 20 19 Rate Respiratory Rate [ generalized] Blood Pressure 117/71 176/84 103/61 O2 Sat by Pulse 98 92 95 Oximetry 05/01/22 05/01/22 05/01/22 22:15 22:30 22:46 Temperature Pulse Rate 99 H 98 H 112 H Respiratory 19 17 19 Rate Respiratory Rate [ generalized] Blood Pressure 110/57 87/43 104/56 O2 Sat by Pulse 97 97 93 Oximetry 05/01/22 05/01/22 05/01/22 23:00 23:05 23:15 Temperature Pulse Rate 106 H 99 H Respiratory 16 18 18 Rate Respiratory 24 Rate [ generalized] Blood Pressure 143/61 109/49 O2 Sat by Pulse 95 98 98 Oximetry 05/01/22 05/01/22 05/01/22 23:20 23:23 23:30 Temperature 97.6 F Pulse Rate 99 H Respiratory 20 Rate Respiratory Rate [ generalized] Blood Pressure 116/44 O2 Sat by Pulse 97 98 Oximetry 05/01/22 05/02/22 05/02/22 23:45 00:00 00:04 Temperature Pulse Rate 101 H 103 H 100 H Respiratory 21 16 18 Rate Respiratory Rate [ generalized] Blood Pressure 161/64 146/71 146/71 O2 Sat by Pulse 97 94 95 Oximetry 05/02/22 05/02/22 05/02/22 00:15 00:30 00:45 Temperature Pulse Rate 104 H 101 H 103 H Respiratory 19 18 20 Rate Respiratory Rate [ generalized] Blood Pressure 130/64 151/60 161/59 O2 Sat by Pulse 97 96 92 Oximetry 05/02/22 05/02/22 05/02/22 01:00 01:15 01:30 Temperature Pulse Rate 102 H 101 H 98 H Respiratory 19 24 18 Rate Respiratory Rate [ generalized] Blood Pressure 137/59 164/64 132/53 O2 Sat by Pulse 95 95 96 Oximetry 05/02/22 05/02/22 05/02/22 01:45 02:00 02:15 Temperature Pulse Rate 102 H 104 H 107 H Respiratory 17 24 19 Rate Respiratory Rate [ generalized] Blood Pressure 150/70 168/78 164/62 O2 Sat by Pulse 96 96 95 Oximetry 05/02/22 05/02/22 05/02/22 02:30 02:34 02:45 Temperature Pulse Rate 114 H 114 H 115 H Respiratory 21 18 17 Rate Respiratory Rate [ generalized] Blood Pressure 170/83 178/88 O2 Sat by Pulse 94 98 94 Oximetry 05/02/22 05/02/22 05/02/22 03:00 03:15 03:30 Temperature 98.0 F Pulse Rate 112 H 113 H 112 H Respiratory 19 20 22 Rate Respiratory Rate [ generalized] Blood Pressure 145/85 156/73 160/73 O2 Sat by Pulse 94 95 95 Oximetry 05/02/22 05/02/22 05/02/22 03:45 04:00 04:15 Temperature Pulse Rate 112 H 113 H 113 H Respiratory 24 24 22 Rate Respiratory Rate [ generalized] Blood Pressure 142/77 129/67 138/69 O2 Sat by Pulse 95 94 93 Oximetry 05/02/22 05/02/22 05/02/22 04:25 04:30 04:45 Temperature Pulse Rate 114 H 110 H Respiratory 24 27 H Rate Respiratory Rate [ generalized] Blood Pressure 149/79 120/64 O2 Sat by Pulse 94 93 93 Oximetry 05/02/22 05/02/22 05/02/22 05:00 05:15 05:27 Temperature Pulse Rate 113 H 111 H 111 H Respiratory 22 24 Rate Respiratory Rate [ generalized] Blood Pressure 124/73 149/77 O2 Sat by Pulse 93 94 98 Oximetry 05/02/22 05/02/22 05/02/22 05:30 05:45 06:00 Temperature Pulse Rate 108 H 108 H 112 H Respiratory 22 28 H 29 H Rate Respiratory Rate [ generalized] Blood Pressure 117/59 128/72 147/76 O2 Sat by Pulse 95 96 94 Oximetry 05/02/22 05/02/22 05/02/22 06:16 06:30 06:36 Temperature Pulse Rate 115 H 106 H Respiratory 21 22 Rate Respiratory Rate [ generalized] Blood Pressure 155/75 118/54 O2 Sat by Pulse 94 96 98 Oximetry 05/02/22 07:21 Temperature 99.8 F H Pulse Rate Respiratory Rate Respiratory Rate [ generalized] Blood Pressure O2 Sat by Pulse Oximetry Constitutional: lethargic, appears uncomfortable, other (eldely female with mildly increased respiratory effort at rest) Eyes: non-icteric ENT: oropharynx moist, oropharyngeal exudate pre (clear frothy) Neck: supple, no lymphadenopathy, no JVD Effort: mildly labored Ascultation: Bilateral: clear, diminished breath sounds, rhonchi, other (referred upper airway sounds) Percussion: Bilateral: not dull Cardiovascular: regular rate and rhythm, other (S1,S2) Gastrointestinal: normoactive bowel sounds, soft, non-tender, non-distended Integumentary: normal Extremities: no cyanosis, no edema, pulses normal, no ischemia or petechiae Neurologic: non-focal exam (grossly), pupils equal and round, other (lethargic, moaning and groaning) Psychiatric: other (flat affect) CBC and BMP: 05/09/22 04:25 05/09/22 04:25 ABG, PT/INR, D-dimer: ABG ABG pH 7.391 pH Units (7.350-7.450) 05/01/22 15:23 ABG pCO2 46.9 mm Hg 05/01/22 15:23 ABG pO2 74.2 mm Hg (80.0-90.0) L 05/01/22 15:23 ABG O2 Saturation 96.9 % (95.0-99.0) 05/01/22 15:23 PT/INR, D-dimer PT 17.9 Sec. (12.2-14.9) H 04/19/22 19:40 INR 1.28 (0.87-1.13) H 04/19/22 19:40 Abnormal lab findings: Abnormal Labs 04/19/22 04/19/22 04/19/22 04:53 04:53 04:53 WBC RBC 3.06 L Hgb 8.6 L Hct 28.0 L RDW 16.3 H [place] % (Auto) 11.3 H Lymph # (Auto) PT INR APTT Heparin Anti-Xa Level ABG pO2 ABG HCO3 ABG Hemoglobin Oxyhemoglobin Sodium Potassium 5.1 H Chloride Carbon Dioxide 21 L BUN 94 H Creatinine 6.3 H Glucose POC Glucose Phosphorus Magnesium Troponin T 0.415 H* Albumin 2.7 L Free T4 0.28 L Crossmatch 04/19/22 04/19/22 04/20/22 19:40 19:40 05:30 WBC 4.1 L RBC 2.97 L Hgb 8.5 L 8.2 L Hct 27.8 L 27.1 L RDW 17.0 H [place] % (Auto) 15.2 H Lymph # (Auto) 1.1 L PT 17.9 H INR 1.28 H APTT 199.1 H* Heparin Anti-Xa Level ABG pO2 ABG HCO3 ABG Hemoglobin Oxyhemoglobin Sodium Potassium Chloride Carbon Dioxide BUN Creatinine Glucose POC Glucose Phosphorus Magnesium Troponin T Albumin Free T4 Crossmatch 04/20/22 04/20/22 04/21/22 05:30 18:23 00:29 WBC RBC Hgb Hct RDW [place] % (Auto) Lymph # (Auto) PT INR APTT Heparin Anti-Xa Level 0.17 L ABG pO2 ABG HCO3 ABG Hemoglobin Oxyhemoglobin Sodium Potassium Chloride Carbon Dioxide 21 L BUN 95 H Creatinine 6.6 H Glucose 139 H POC Glucose Phosphorus Magnesium 2.60 H Troponin T Albumin 2.4 L Free T4 Crossmatch 04/21/22 04/21/22 04/22/22 04:00 04:00 03:45 WBC RBC 2.74 L Hgb 7.7 L Hct 24.7 L RDW 16.6 H [place] % (Auto) Lymph # (Auto) PT INR APTT Heparin Anti-Xa Level < 0.10 L ABG pO2 ABG HCO3 ABG Hemoglobin Oxyhemoglobin Sodium 133 L Potassium Chloride Carbon Dioxide 20 L BUN 89 H Creatinine 6.6 H Glucose 131 H POC Glucose Phosphorus 6.40 H Magnesium 2.50 H Troponin T Albumin Free T4 Crossmatch 04/22/22 04/22/22 04/22/22 03:45 12:13 14:30 WBC RBC Hgb Hct RDW [place] % (Auto) Lymph # (Auto) PT INR APTT Heparin Anti-Xa Level 0.11 L 0.11 L ABG pO2 ABG HCO3 ABG Hemoglobin Oxyhemoglobin Sodium 136 L Potassium Chloride Carbon Dioxide 18 L BUN 90 H Creatinine 6.3 H Glucose 121 H POC Glucose Phosphorus 6.50 H Magnesium Troponin T Albumin Free T4 Crossmatch 04/22/22 04/23/22 04/23/22 23:08 02:17 04:10 WBC RBC Hgb 7.3 L Hct 23.3 L RDW [place] % (Auto) Lymph # (Auto) PT INR APTT Heparin Anti-Xa Level 0.14 L ABG pO2 ABG HCO3 ABG Hemoglobin Oxyhemoglobin Sodium Potassium Chloride Carbon Dioxide BUN Creatinine Glucose POC Glucose 153 H Phosphorus Magnesium Troponin T Albumin Free T4 Crossmatch 04/23/22 04/23/22 04/23/22 04:10 06:09 23:22 WBC RBC Hgb Hct RDW [place] % (Auto) Lymph # (Auto) PT INR APTT Heparin Anti-Xa Level ABG pO2 ABG HCO3 ABG Hemoglobin Oxyhemoglobin Sodium Potassium Chloride Carbon Dioxide BUN 36 H Creatinine 3.4 H Glucose 131 H POC Glucose 141 H 114 H Phosphorus Magnesium Troponin T Albumin Free T4 Crossmatch 04/24/22 04/24/22 04/24/22 02:10 04:00 04:00 WBC RBC 2.48 L Hgb 7.1 L Hct 22.6 L RDW 16.9 H [place] % (Auto) Lymph # (Auto) PT INR APTT Heparin Anti-Xa Level 0.12 L ABG pO2 ABG HCO3 ABG Hemoglobin Oxyhemoglobin Sodium 134 L Potassium Chloride Carbon Dioxide BUN 42 H Creatinine 3.9 H Glucose 141 H POC Glucose Phosphorus Magnesium Troponin T Albumin Free T4 Crossmatch 04/24/22 04/24/22 04/24/22 05:03 10:20 11:24 WBC RBC Hgb Hct RDW [place] % (Auto) Lymph # (Auto) PT INR APTT Heparin Anti-Xa Level < 0.10 L ABG pO2 ABG HCO3 ABG Hemoglobin Oxyhemoglobin Sodium Potassium Chloride Carbon Dioxide BUN Creatinine Glucose POC Glucose 142 H 144 H Phosphorus Magnesium Troponin T Albumin Free T4 Crossmatch 04/25/22 04/25/22 04/25/22 00:15 04:11 04:11 WBC 4.4 L RBC 2.38 L Hgb 6.7 L Hct 21.7 L RDW 17.2 H [place] % (Auto) Lymph # (Auto) PT INR APTT Heparin Anti-Xa Level ABG pO2 ABG HCO3 ABG Hemoglobin Oxyhemoglobin Sodium 134 L Potassium Chloride 97.1 L Carbon Dioxide BUN 47 H Creatinine 4.3 H Glucose 106 H POC Glucose 136 H Phosphorus Magnesium Troponin T Albumin Free T4 Crossmatch 04/25/22 04/25/22 04/25/22 06:01 15:30 22:44 WBC RBC Hgb 8.8 L Hct 28.1 L D RDW [place] % (Auto) Lymph # (Auto) PT INR APTT Heparin Anti-Xa Level ABG pO2 ABG HCO3 ABG Hemoglobin Oxyhemoglobin Sodium Potassium Chloride Carbon Dioxide BUN Creatinine Glucose POC Glucose 137 H Phosphorus Magnesium Troponin T Albumin Free T4 Crossmatch See Detail 04/26/22 04/27/22 04/27/22 04:20 04:45 04:45 WBC RBC 2.81 L 3.13 L Hgb 8.0 L 9.0 L Hct 25.4 L 29.1 L RDW 16.2 H 17.4 H [place] % (Auto) Lymph # (Auto) PT INR APTT Heparin Anti-Xa Level ABG pO2 ABG HCO3 ABG Hemoglobin Oxyhemoglobin Sodium 131 L Potassium Chloride 93.5 L Carbon Dioxide BUN 44 H Creatinine 3.9 H Glucose 135 H POC Glucose Phosphorus Magnesium Troponin T Albumin Free T4 Crossmatch 04/27/22 04/28/22 04/28/22 23:38 05:26 07:54 WBC 11.1 H RBC 2.40 L Hgb 6.9 L Hct 22.1 L D RDW 17.2 H [place] % (Auto) Lymph # (Auto) PT INR APTT Heparin Anti-Xa Level ABG pO2 ABG HCO3 ABG Hemoglobin Oxyhemoglobin Sodium Potassium Chloride Carbon Dioxide BUN Creatinine Glucose POC Glucose 229 H 169 H Phosphorus Magnesium Troponin T Albumin Free T4 Crossmatch 04/28/22 04/28/22 04/29/22 12:31 17:54 00:49 WBC RBC Hgb Hct RDW [place] % (Auto) Lymph # (Auto) PT INR APTT Heparin Anti-Xa Level ABG pO2 ABG HCO3 ABG Hemoglobin Oxyhemoglobin Sodium Potassium Chloride Carbon Dioxide BUN Creatinine Glucose POC Glucose 132 H 138 H 189 H Phosphorus Magnesium Troponin T Albumin Free T4 Crossmatch 04/29/22 04/29/22 04/29/22 06:42 10:54 10:54 WBC 11.8 H RBC 2.93 L Hgb 8.6 L Hct 26.2 L RDW 16.8 H [place] % (Auto) Lymph # (Auto) PT INR APTT Heparin Anti-Xa Level ABG pO2 ABG HCO3 ABG Hemoglobin Oxyhemoglobin Sodium 129 L Potassium Chloride 91.5 L Carbon Dioxide BUN 46 H Creatinine 3.1 H Glucose 180 H POC Glucose 196 H Phosphorus Magnesium Troponin T Albumin Free T4 Crossmatch 04/29/22 04/29/22 04/30/22 12:03 23:32 05:57 WBC RBC Hgb Hct RDW [place] % (Auto) Lymph # (Auto) PT INR APTT Heparin Anti-Xa Level ABG pO2 ABG HCO3 ABG Hemoglobin Oxyhemoglobin Sodium Potassium Chloride Carbon Dioxide BUN Creatinine Glucose POC Glucose 169 H 170 H 151 H Phosphorus Magnesium Troponin T Albumin Free T4 Crossmatch 04/30/22 04/30/22 04/30/22 11:28 16:39 23:22 WBC RBC Hgb Hct RDW [place] % (Auto) Lymph # (Auto) PT INR APTT Heparin Anti-Xa Level ABG pO2 ABG HCO3 ABG Hemoglobin Oxyhemoglobin Sodium Potassium Chloride Carbon Dioxide BUN Creatinine Glucose POC Glucose 159 H 147 H 170 H Phosphorus Magnesium Troponin T Albumin Free T4 Crossmatch 05/01/22 05/01/22 05/01/22 04:00 05:34 15:23 WBC RBC 2.92 L Hgb 8.4 L Hct 26.7 L RDW 16.6 H [place] % (Auto) Lymph # (Auto) PT INR APTT Heparin Anti-Xa Level ABG pO2 74.2 L ABG HCO3 27.8 H ABG Hemoglobin 8.7 L Oxyhemoglobin 94.5 L Sodium Potassium Chloride Carbon Dioxide BUN Creatinine Glucose POC Glucose 140 H Phosphorus Magnesium Troponin T Albumin Free T4 Crossmatch 05/02/22 05/02/22 05/02/22 05:54 05:54 05:54 WBC RBC 2.85 L Hgb 8.3 L Hct 25.9 L RDW 16.5 H [place] % (Auto) Lymph # (Auto) PT INR APTT Heparin Anti-Xa Level ABG pO2 ABG HCO3 ABG Hemoglobin Oxyhemoglobin Sodium 130 L 128 L Potassium Chloride 90.9 L 90.0 L Carbon Dioxide BUN 49 H 49 H Creatinine 3.7 H Glucose 191 H 184 H POC Glucose Phosphorus Magnesium Troponin T Albumin Free T4 Crossmatch Chest x-ray: image reviewed Allied health notes reviewed: RT
[2022-05-02] MEDS: SENNOSIDES 8.6 MG TAB FEEDTUBE SCH ×2 (09:49→21:15)
[2022-05-02] MEDS: SCOPOLAMINE TRANSDERMAL PATCH 72 HR TD SCH (09:50)
[2022-05-02] MEDS: risperiDONE 1 MG TAB FEEDTUBE SCH ×2 (09:51→21:20)
[2022-05-02] MEDS: MEMANTINE 5 MG TAB FEEDTUBE SCH ×2 (09:51→21:20)
[2022-05-02] MEDS: POLYETHYLENE GLYCOL 3350 17 GM POWDER PO SCH (09:51)
[2022-05-02] MEDS ORDERED: QUEtiapine 100 MG TAB FEEDTUBE SCH (10:00)
--- NOTE | 2022-05-02 10:10 | Event Note ---
Date: 05/02/22 Will consider fistulogram on or sunday. Plan for PEG on sunday.
[2022-05-02] MEDS: LANSOPRAZOLE 30 MG SOLUTAB FEEDTUBE SCH (10:11)
[2022-05-02] MEDS: VALPROIC ACID 250 MG/5 ML ORAL LIQD FEEDTUBE SCH ×2 (10:11→21:23)
[2022-05-02] MEDS: DOCUSATE SODIUM 100 MG/10 ML ORAL LIQD FEEDTUBE SCH ×2 (10:11→21:15)
[2022-05-02] MEDS: EPOETIN ALFA-EPBX 20,000 UNIT/1 ML VIAL IV PRN (12:30)
--- NOTE | 2022-05-02 13:04 | Progress Note ---
<COLLETTE HANNA - Last Filed: 05/02/22 23:18> Assessment and Plan Assessment and plan: This is a 66-year-old female with known past medical history of HTN, GERD, Seizure disorder, vascular dementia, ESRD on HD(TTS), OA, bipolar disorder, schizophrenia, anxiety disorder, and limited mobility admitted for Acute hypxic respiratory, hypotension, and SVT s/p X2 doses adenosine and cardioversion. Hospital Course to Date: 04/20: Patient went into Afib with RVR overnight, now on amiodarone gtt per yan cuello. Patient remains in AFib with RVR this am, HR in the 120-140s. BP marginal on Levophed gtt, currently not a candidate for BB. Midodrine increased to 15mg TID. 2D Echo pending. On heparin gtt per protocol. No HD today per nephro due to hypotension and tachycardia. 04/21: Converted to SR this am, remains on Amiodarone and heparin. Awaiting cardio final recommendations. Still on Levophed gtt for low BP, given patient history of chronic hypotension, Wean pressor for MAP goal of 60s. Patient is pocketing foods, currently NPO, awaiting speech eval and treat. 04/22: Patient passed speech swallow eval yesterday, however, patient is refusing PO intakes including meds. Will insert DHT for nutrition and meds administration. Patient remains in SR this am, amiodaron gtt transitioned to PO per cardio. Patient remains on heparin and Levophed gtt. Patient has not received PO midrodrine for 24hrs, resume meds once DHT is inserted. Keep femoral CVC for another 24hrs, anticipating will be able to wean off pressor once patient receive midodrine. Will reassess in the morning. No HD overnight, unable to cannulate AVF, plan to attempt again today per Nephro. Possible IR/Vascular surgery consult if unsuccessful again today. 04/23: Mentation a lot better this am. DHT was inserted, meds resumed and TF initiated. Levophed gtt increased overnight due to worsen hypotension, suspected it is due to sedative agents. Seroquel decreased to 200mg BID and scheduled ativan switched to PRN. Continue midodrine TID and wean off levophed gtt for MAP goal of 60. Patient tolerated HD yesterday, continue iHD per Nephrology. CCM recommendations noted, Chest US ordered for pleural effusion. 04/24: RN instructed to wean Levophed off, goal MAP of 60. Heparin drip stopped due to decreasing hemoglobin. 04/25: had cleared the patient for pured diet which will be started today, hemodialysis planned for today, patient was to be anemic and will receive 1 unit PRBC with HD. We will increase midodrine to 20 mg 3 times daily if patient becomes hypotensive during dialysis. Per CCM. Decrease in seroqoul but will increase if needed 04/26: Patient agreeable to PEG, GI consulted for placement. Femoral line removed 04/27: No acute events reported overnight, patient has been cardiac cleared for PEG tube placement. Possible PEG in the a.m. This afternoon attempted to place IJ CVL which was unsuccessful and Dr. Mcguire ultimately placed femoral CVL for the initiation of Levophed. HD scheduled for today. 04/28: Patient initially started on Levophed yesterday and she received a femoral CVL. 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 Vascular surgery was consulted. Patient also noted to be anemic and received 1 unit PRBC today. 04/29: Possible hemodialysis today, patient was able to be weaned off of Levophed today. Hemoglobin responded well to 1 unit PRBC. Awaiting trach/PEG placement. Patient will not need to be started on heparin drip per vascular surgery. No acute events reported overnight. 04/30: HD yesterday without removal of fluids, patient needs NT suctioning. Updated son today. 05/01: Patient with increase mucous production and is unable to fully clear her airway, Rhonchi auscultated throughout her lungs this am. SPO2 at 90 to 94% on 3L NC. D/W CCM, patient is high risk for aspiration will placed patient on heated HF at 40L for now instead of Bipap. Nasal bleeding also noted, mostly due to NT suctioning. Refrain from NT suctioning for now due to bleeding, only oral suctioning. PO seroquel held this amP atient is AAO, appropriate, and following commands. Levophed gtt weaned off, patient remains hemodynamically stable. Will discuss Nephro for possible fluid removal tonight or early tomorrow. Very low threshold for intubation. Patient's condition and plan of care, including possible intubation, thoroughly discussed with patient's son-Raymundo Randolph at . Patient's son verbalized understanding of the info provided and agreed with intubation if necessary. 05/02: Remains on HHFL at 40% and 40L, mentation is unchanged. HD at the bedside, plan for possible UF with fluid removal today. Continue O2 supplementation and wean as tolerated, for SPO2 above 92%. Repeat CXR in the am. Patient vital signs remains stable, still off pressors. Plan for possible PEG-tube placement by GI tomorrow, NPO after MN. Possible fistulogram for RIJ thrombus on or sunday per Vascular Surgery. Assessement and Plan #Atrial Fibrillation with RVR #Supraventricular Tachycardia s/p Cardioversion #Acute on Chronic Hypotension #NSTEMI Type 2 - Presented with AMS, Tachycardia, and hypotension requiring pressors - was found in SVT in the ED s/p unsuccessful X2 doses of adenosine then cardioversion. - Patient initially converted to SR post cardioversion, then went into afib RVR in the ICU - Elevated troponin most likely related to ESRD - Cardiology consulted, appreciate recommendations - s/p Amio gtt now on PO per Cardio - Levophed gtt weaned off this am - Continue Midodrine TID - Continue blood pressure monitor per protocol - Titrate pressors for MAP goal of 60 - Not a candidate for MARGOTH, ARB, and BB due to hypotension - 2D Echo EF 60-65% - on Lipitor and Plavix - CCM also following #Acute Hypoxic Respiratory Failure #Moderate Pleural Effusion - with worsening respiratory status this am - Patient with increase mucous production and is unable to fully clear her airway - Rhonchi auscultated throughout her lungs this am. SPO2 at 90 to 94% on 3L NC. - D/W CCM, patient is high risk for aspiration will placed patient on heated HF at 40L for now instead of Bipap. - With mild nasal bleeding today. Refrain from NT suctioning for now due to bleeding, Oral suctioning only - Continue O2 supplementation and wean as tolerated - Continue SPO2 monitoring for SPO2 goal above 92% - Low threshold for intubion #Acute Metabolic Encephalopathy #H/o Vascular Dementia #Severe Anxiety #Bipolar Disorder & Schizophrenia - Presented with AMS, probably due to above - More AAO, appropriate, following commands - Continue home meds - Seroquel held due to increase sedation - PRN Analgesia for pain control - Maintenance of sleep-wake cycle - Mental Health/Psych on consult #End-Stage Renal Disease(ESRD) on HD - Nephrology on consult, appreciated recommendation - HD on 04/29 without removal of fluids - Patient now with worsening respiratory status, c/f worsening fluid overload - Will discuss Nephro for possible fluid removal tonight or early tomorrow - Strict intake and output - Avoid nephrotoxic medications; Renally dose medications - Monitor and replace electrolytes as needed #Anemia of Chronic Disease #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 Plan for possible vascular intervention sometimes this week - AC on hold due to worsen anemia #H/o Seizure Disorder - Resume home meds #Dysphagia #Moderate Protein Caloric Malnutrition - Failed speech swallow- they recommended PEG-Tube - GI consulted, appreciate recommendation - Plan for PEG-Tube placed on Sunday - On enteral nutrition - Nutrition consulted #GI/DVT Prophylaxis - PPI- Protonix - SCDs to bilateral lower extremities while in bed #Advance Care Planning - Disease education data, care plan, diagnoses, and prognosis were discussed with patient's son at the bedside. Patient is a FULL code. Patient acknowledged understanding and agreed with current care plan. The high probability of a clinically significant, sudden or life threatening deterioration of the [multiple] system(s) required my full and direct attention, intervention and personal management. The aggregate critical care time was [60] minutes. This time is in addition to time spent performing reported procedures but includes the following: [x] Data Review and interpretation [x] Patient assessment and monitoring of vital signs [x] Documentation [x] Medication orders and management Disposition Plan: ICU Total Time Spent with Patient (Minutes): 60 History Interval history: Patient seen and examined at the bedside. Remains AAO this am. Still on heated HF at 40% and 40L. Remains off pressors. HD at the bedside. GUERRERO overnight Hospitalist Physical - Physical exam Narrative exam: General appearance: Present: mild distress, well-nourished, obese - EENT Eyes: Present: PERRL ENT: hearing intact, poor dentition - Neck Neck: Present: normal ROM - Respiratory Respiratory effort: normal Respiratory: bilateral: diminished - Cardiovascular Rhythm: irregularly irregular Heart Sounds: Present: S1 & S2 - Extremities Extremities: no ischemia, pulses intact, pulses symmetrical Extremity abnormal: edema - Peripheral Assessment Generalized Edema Type: pitting Edema Degree: 2+ Capillary Refill: < 3 seconds Skin Temperature: Warm Peripheral Pulses: within normal limits Right Upper Extremity Edema Type: pitting Edema Degree: 3+ Capillary Refill: < 3 seconds Skin Temperature: Warm Peripheral Pulses: within normal limits - Abdominal General gastrointestinal: soft, non-distended, normal bowel sounds - Integumentary Integumentary: Present: warm, dry - Psychiatric Psychiatric: appropriate mood/affect, cooperative, other (Awake and alert) - Neurologic Neurologic: moves all extremities, other (Awake and alert) - Allied Health Allied health notes reviewed: nursing, case management - Constitutional Vitals: Temp Pulse Resp BP Pulse Ox 99.3 F 114 H 24 129/61 96 05/02/22 12:02 05/02/22 12:15 05/02/22 12:00 05/02/22 12:15 05/02/22 12:00 HEART Score - HEART Score Troponin: Troponin T 0.415 ng/mL (0.00-0.029) H* 04/19/22 04:53 Results - Labs CBC & Chem 7: 05/02/22 05:54 05/02/22 05:54 Labs: Laboratory Last Values WBC 8.7 K/mm3 (4.5-11.0) 05/02/22 05:54 RBC 2.85 M/mm3 (3.65-5.03) L 05/02/22 05:54 Hgb 8.3 gm/dl (10.1-14.3) L 05/02/22 05:54 Hct 25.9 % (30.3-42.9) L 05/02/22 05:54 MCV 91 fl (79-97) 05/02/22 05:54 MCH 29 pg (28-32) 05/02/22 05:54 MCHC 32 % (30-34) 05/02/22 05:54 RDW 16.5 % (13.2-15.2) H 05/02/22 05:54 Plt Count 180 K/mm3 (140-440) 05/02/22 05:54 Lymph % (Auto) 26.7 % (13.4-35.0) 04/20/22 05:30 Island % (Auto) 15.2 % (0.0-7.3) H 04/20/22 05:30 Eos % (Auto) 3.8 % (0.0-4.3) 04/20/22 05:30 Baso % (Auto) 1.2 % (0.0-1.8) 04/20/22 05:30 Lymph # (Auto) 1.1 K/mm3 (1.2-5.4) L 04/20/22 05:30 Island # (Auto) 0.6 K/mm3 (0.0-0.8) 04/20/22 05:30 Eos # (Auto) 0.2 K/mm3 (0.0-0.4) 04/20/22 05:30 Baso # (Auto) 0.0 K/mm3 (0.0-0.1) 04/20/22 05:30 Seg Neutrophils % 53.1 % (40.0-70.0) 04/20/22 05:30 Seg Neutrophils # 2.2 K/mm3 (1.8-7.7) 04/20/22 05:30 PT 17.9 Sec. (12.2-14.9) H 04/19/22 19:40 INR 1.28 (0.87-1.13) H 04/19/22 19:40 APTT 199.1 Sec. (24.2-36.6) H* 04/19/22 19:40 Heparin Anti-Xa Level < 0.10 U.I./ml (0.3-0.7) L 04/24/22 10:20 ABG pH 7.391 pH Units (7.350-7.450) 05/01/22 15:23 ABG pCO2 46.9 mm Hg 05/01/22 15:23 ABG pO2 74.2 mm Hg (80.0-90.0) L 05/01/22 15: ABG HCO3 27.8 mmol/L (20.0-26.0) H 05/01/22 15:23 ABG O2 Saturation 96.9 % (95.0-99.0) 05/01/22 15: ABG O2 Content 20.0 (0.0-44) 05/01/22 15: ABG Base Excess 2.2 mmol/L (-2.0-3.0) 05/01/22 15: ABG Hemoglobin 8.7 gm/dl (12.0-16.0) L 05/01/22 15: ABG Carboxyhemoglobin 2.1 % (0.0-5.0) 05/01/22: ABG Methemoglobin 0.4 % (0.0-1.5) 05/01/22: Oxyhemoglobin 94.5 % (95.0-99.0) L 05/01/22 15: FiO2 40 % 05/01/22 15: Sodium 128 mmol/L (137-145) L 05/02/22 05:54 Sodium 130 mmol/L (137-145) L 05/02/22 05:54 Potassium 3.9 mmol/L (3.6-5.0) 05/02/22 05:54 Potassium 4.0 mmol/L (3.6-5.0) 05/02/22 05:54 Chloride 90.0 mmol/L (98-107) L 05/02/22 05:54 Chloride 90.9 mmol/L (98-107) L 05/02/22 05:54 Carbon Dioxide 25 mmol/L (22-30) 05/02/22 05:54 Carbon Dioxide 26 mmol/L (22-30) 05/02/22 05:54 Anion Gap 17 mmol/L 05/02/22 05:54 Anion Gap 17 mmol/L 05/02/22 05:54 BUN 49 mg/dL (7-17) H 05/02/22 05:54 BUN 49 mg/dL (7-17) H 05/02/22 05:54 Creatinine 3.7 mg/dL (0.6-1.2) H 05/02/22 05:54 Creatinine 3.8 mg/dL (0.6-1.2) H 05/02/22 05:54 Estimated GFR 14 ml/min 05/02/22 05:54 Estimated GFR 15 ml/min 05/02/22 05:54 BUN/Creatinine Ratio 13 % 05/02/22 05:54 BUN/Creatinine Ratio 13 % 05/02/22 05:54 Glucose 184 mg/dL (65-100) H 05/02/22 05:54 Glucose 191 mg/dL (65-100) H 05/02/22 05:54 POC Glucose 140 mg/dL (70-105) H 05/01/22 05:34 Lactic Acid 1.60 mmol/L (0.7-2.0) 04/19/22 07:14 Calcium 9.5 mg/dL (8.4-10.2) 05/02/22 05:54 Calcium 9.6 mg/dL (8.4-10.2) 05/02/22 05:54 Phosphorus 2.50 mg/dL (2.5-4.5) 04/24/22 04:00 Magnesium 1.80 mg/dL (1.7-2.3) 04/24/22 04:00 Total Bilirubin 0.30 mg/dL (0.1-1.2) 04/20/22 05:30 AST 11 units/L (5-40) 04/20/22 05:30 ALT 7 units/L (7-56) 04/20/22 05:30 Alkaline Phosphatase 101 units/L (35-129) 04/20/22 05:30 Ammonia 25.0 umol/L (25-60) 04/19/22 04:53 Troponin T 0.415 ng/mL (0.00-0.029) H* 04/19/22 04:53 Total Protein 6.4 g/dL (6.3-8.2) 04/20/22 05:30 Albumin 2.4 g/dL (3.9-5) L 04/20/22 05:30 Albumin/Globulin Ratio 0.6 % 04/20/22 05:30 TSH 1.700 mlU/mL (0.270-4.200) 04/19/22 04:53 Free T4 0.28 ng/dL (0.76-1.46) L 04/19/22 04:53 Total Cortisol 24.4 mcg/dL () 04/27/22 04:45 Hepatitis A IgM Ab Non-reactive (NonReactive) 04/19/22 04:53 Hep Bs Antigen Non-reactive (Negative) 04/19/22 04:53 Hep B Core IgM Ab Non-reactive (NonReactive) 04/19/22 04:53 Hepatitis C Antibody Non-reactive (NonReactive) 04/19/22 04:53 Blood Type A POSITIVE 04/25/22 15:30 Antibody Screen Negative 04/25/22 15:30 Crossmatch See Detail 04/25/22 15:30 Cleary/IV: Voiding Method Incontinent Active Medications - Current Medications Current Medications: Generic Name Dose Route Start Last Admin Trade Name Freq PRN Reason Stop Dose Admin Acetaminophen 650 mg 04/22/22 20:12 04/29/22 09:43 Acetaminophen 325 Mg/10.15 Ml Oral Liqd Unit Dose PO 650 mg Q6H PRN Administration Pain MILD(1-3)/Fever >100.5/DRAKE Albumin Human 25 gm 04/21/22 13:00 04/22/22 16:31 Albumin Human 25% (25 Gm/100 Ml) Inj IV 25 gm BIANCA PRN Administration Hypotension Albuterol 2.5 mg 04/21/22 08:30 04/24/22 16:51 Albuterol 2.5 Mg/3 Ml Nebu IH 2.5 mg Q3HRT PRN Administration Shortness Of Breath Albuterol/Ipratropium 1 ampul 04/21/22 14:00 05/02/22 08:34 Ipratropium/Albuterol Sulfate 3 Ml Ampul.Neb IH 1 ampul TIDRT CONNOR Administration Docusate Sodium 100 mg 05/01/22 22:00 05/02/22 10:11 Docusate Sodium 100 Mg/10 Ml Oral Liqd FEEDTUBE 100 mg BID CONNOR Administration Epoetin Lb-epbx 20,000 unit 04/23/22 12:00 04/25/22 20:00 Epoetin Lb-Epbx 20,000 Unit/1 Ml Vial IV 20,000 unit BIANCA PRN Administration HEMODIALYSIS Sodium Chloride 100 mls @ 999 mls/hr 04/22/22 09:12 Nacl 0.9% IV BIANCA PRN Hypotension Lansoprazole 30 mg 04/23/22 10:00 05/02/22 10:11 Lansoprazole 30 Mg Solutab FEEDTUBE 30 mg QDAY CONNOR Administration Lorazepam 0.5 mg 04/25/22 09:59 Lorazepam 0.5 Mg Tab FEEDTUBE QDAY PRN Anxiety Memantine 5 mg 04/25/22 10:00 05/02/22 09:51 Memantine 5 Mg Tab FEEDTUBE 5 mg BID CONNOR Administration Metoclopramide HCl 5 mg 04/19/22 09:55 Metoclopramide 10 Mg/2 Ml Inj IV Q6H PRN Nausea And Vomiting Midodrine 20 mg 04/26/22 14:00 05/02/22 08:43 Midodrine 10 Mg Tab FEEDTUBE 20 mg TID CONNOR Administration Naloxone HCl 0.1 mg 04/19/22 09:55 Naloxone 0.4 Mg/1 Ml Inj IV Q2MIN PRN Res Rate </= 8 or 02 SAT < 92% Oxymetazoline HCl 2 spray 05/01/22 15:05 Oxymetazoline 0.05% Nasal [place] NS 05/04/22 15:04 Q12H PRN Nasal Congestion Polyethylene Glycol 17 gm 04/28/22 10:00 05/02/22 09:51 Polyethylene Glycol 3350 17 Gm Powder PO 17 gm QDAY CONNOR Administration Risperidone 0.5 mg 04/25/22 11:00 05/02/22 09:51 Risperidone 1 Mg Tab FEEDTUBE 0.5 mg BID CONNOR Administration Scopolamine 1 each 05/02/22 10:00 05/02/22 09:50 Scopolamine Transdermal Patch 72 Hr TD 1 each Q3D CONNOR Administration Senna 17.2 mg 04/23/22 10:00 05/02/22 09:49 Sennosides 8.6 Mg Tab FEEDTUBE 17.2 mg BID CONNOR Administration Sodium Chloride 10 ml 04/19/22 12:00 05/02/22 09:52 Sodium Chloride 0.9% 10 Ml Flush Syringe IV 10 ml BID CONNOR Administration Sodium Chloride 10 ml 04/19/22 11:19 Sodium Chloride 0.9% 10 Ml Flush Syringe IV PRN PRN LINE FLUSH Valproic Acid 750 mg 04/22/22 22:00 05/02/22 10:11 Valproic Acid 250 Mg/5 Ml Oral Liqd FEEDTUBE 750 mg BID CONNOR Administration Nutrition/Malnutrition Assess - Dietary Evaluation Nutrition/Malnutrition Findings: Nutrition Notes Start: 04/19/22 17:39 Freq: Status: Active Protocol: Document 05/01/22 12:29 MIRIAN (Rec: 05/01/22 13:08 MIRIAN [id number]) Nutrition Notes Initial or Follow up Reassessment Current Diagnosis CKD (stage V CKD),Hypertension ,Respiratory Failure, Malnutrition Other Pertinent Diagnosis Metabolic Encephalopathy, ESRD +HD, Anemia, NSTEMI II, SIRS, Dysphagia... Current Diet NPO (since 04/28 07:18), TF- Nepro w/CARBSTEADY @ 30 ml/hr (from D 05/01). Labs/Tests 05/01: Na 129, Cl 91.5, BUN 46 , Crea 3.1, Glu 180. Pertinent Medications 05/01: Nutritionally unremarkable. Height 5 ft 2 in Weight 54.43 kg [place] Body Weight (kg) 50.00 BMI 21.9 Weight change and time frame No body weight change reported in 12 days. Weight Status Appropriate Subjective/Other Information RD consult for routine F/U on TF tolerance/continuation. TF is on Hold, Pt has been on NPO for 3 days. Pt was scheduled for PEG-tube placement on 04/28; however, today Pt is still waiting for procedure, apparently has been rescheduled for 05/03. I spoke with RN over the phone and will ask MD if TF can be resumed mean while; will check later again. ---13:17, TF order received, I will place it on the chart. Pt is on Nasal Cannula, O2 saturation @ 94%, according to Physical Assessment History notes. Pt has missing teeth and caries, according to Physical Assessment History notes. Pt presents bilateral-UE pitting edema 3+, according to Physical Assessment History notes. Percent of energy/protein needs met: Pt currently on NPO. Prescribed TF-Nepro w/ CARBSTEADY @ 30 ml/hr provides for energy/protein needs (1, 269 Kcal/58 g) during LOS, 102 % Kcal; 89% AA. Burn Absent Trauma Absent GI Symptoms None Difficulty In Swallowing,Chewing Food Allergy Yes Skin Integrity/Comment Healing Sacral wound, intact. Current % PO Other Minimum of two criteria No Fluid Accumulation N/A Reduced Director Of Informatics Strength N/A (non-severe) Protein-Calorie Malnutrition N\A #1 Nutrition Diagnosis Swallowing difficulty Diagnosis Progress(for reassessment Continues documentation) Is patient on ventilator? No Is Patient Ambulatory and/or Out of Bed No REE-([facility] [place]-confined to bed) [phone] Calculation Used for Recommendations [facility] Additional Notes Protein: >1.2 g/Kg ABW; >65 g/ day. Fluids: 1-1.5 L/day, or as per MD. Nutrition Intervention Nutrition Support: Resume Nepro w/CARBSTEADY @ 30 ml/hr. Flush: 130 ml water Q 4 hr, or as per MD. Kcal 1,269 Protein (gm) 58 Carbohydrates (gm) 116 Fat (gm) 58 Fluid (mL) 523 Fiber (gm) 9 % RDI: 102% Kcal; 89% AA. Goal #1 Provide at least 75% of energy /protein needs through Enteral Feeding during LOS. Follow-Up By: 05/03/22 Additional Comments Continue monitoring TF tolerance, PEG-tube placement, and BM. <MELINDA BOWEN - Last Filed: 05/03/22 07:41> Assessment and Plan Assessment and plan: I saw and evaluated the patient. I agree with the findings and the plan of care as documented in the Nurse Practitioner's~note, with the following corrections and additions. Hospitalist Physical - Constitutional Vitals: Temp Pulse Resp BP Pulse Ox 97.9 F 113 H 14 134/57 95 05/03/22 04:45 05/03/22 06:45 05/03/22 06:45 05/03/22 06:45 05/03/22 06:45 HEART Score - HEART Score Troponin: Troponin T 0.415 ng/mL (0.00-0.029) H* 04/19/22 04:53 Results - Labs CBC & Chem 7: 05/03/22 04:24 05/03/22 04:24 Labs: Laboratory Last Values WBC 7.9 K/mm3 (4.5-11.0) 05/03/22 04:24 RBC 2.71 M/mm3 (3.65-5.03) L 05/03/22 04:24 Hgb 7.8 gm/dl (10.1-14.3) L 05/03/22 04:24 Hct 24.8 % (30.3-42.9) L 05/03/22 04:24 MCV 91 fl (79-97) 05/03/22 04:24 MCH 29 pg (28-32) 05/03/22 04:24 MCHC 31 % (30-34) 05/03/22 04:24 RDW 16.6 % (13.2-15.2) H 05/03/22 04:24 Plt Count 160 K/mm3 (140-440) 05/03/22 04:24 Lymph % (Auto) 26.7 % (13.4-35.0) 04/20/22 05:30 Island % (Auto) 15.2 % (0.0-7.3) H 04/20/22 05:30 Eos % (Auto) 3.8 % (0.0-4.3) 04/20/22 05:30 Baso % (Auto) 1.2 % (0.0-1.8) 04/20/22 05:30 Lymph # (Auto) 1.1 K/mm3 (1.2-5.4) L 04/20/22 05:30 Island # (Auto) 0.6 K/mm3 (0.0-0.8) 04/20/22 05:30 Eos # (Auto) 0.2 K/mm3 (0.0-0.4) 04/20/22 05:30 Baso # (Auto) 0.0 K/mm3 (0.0-0.1) 04/20/22 05:30 Seg Neutrophils % 53.1 % (40.0-70.0) 04/20/22 05:30 Seg Neutrophils # 2.2 K/mm3 (1.8-7.7) 04/20/22 05:30 PT 13.8 Sec. (12.2-14.9) 05/03/22 04:24 INR 0.96 (0.87-1.13) 05/03/22 04:24 APTT 39.4 Sec. (24.2-36.6) H 05/03/22 04:24 Heparin Anti-Xa Level < 0.10 U.I./ml (0.3-0.7) L 04/24/22 10:20 ABG pH 7.434 pH Units (7.350-7.450) 05/02/22 14:15 ABG pCO2 44.4 mm Hg 05/02/22 14:15 ABG pO2 84.3 mm Hg (80.0-90.0) 05/02/22 14:15 ABG HCO3 29.1 mmol/L (20.0-26.0) H 05/02/22 14:15 ABG O2 Saturation 97.0 % (95.0-99.0) 05/02/22 14:15 ABG O2 Content 11.4 (0.0-44) 05/02/22 14:15 ABG Base Excess 4.3 mmol/L (-2.0-3.0) H 05/02/22 14:15 ABG Hemoglobin 8.4 gm/dl (12.0-16.0) L 05/02/22 14:15 ABG Carboxyhemoglobin 1.8 % (0.0-5.0) 05/02/22 14:15 ABG Methemoglobin 0.5 % (0.0-1.5) 05/02/22 14:15 Oxyhemoglobin 94.8 % (95.0-99.0) L 05/02/22 14:15 FiO2 100 % 05/02/22 14:15 Sodium 132 mmol/L (137-145) L 05/03/22 04:24 Potassium 3.7 mmol/L (3.6-5.0) 05/03/22 04:24 Chloride 93.0 mmol/L (98-107) L 05/03/22 04:24 Carbon Dioxide 26 mmol/L (22-30) 05/03/22 04:24 Anion Gap 17 mmol/L 05/03/22 04:24 BUN 31 mg/dL (7-17) H 05/03/22 04:24 Creatinine 2.8 mg/dL (0.6-1.2) H 05/03/22 04:24 Estimated GFR 20 ml/min 05/03/22 04:24 BUN/Creatinine Ratio 11 % 05/03/22 04:24 Glucose 119 mg/dL (65-100) H 05/03/22 04:24 POC Glucose 140 mg/dL (70-105) H 05/01/22 05:34 Lactic Acid 1.60 mmol/L (0.7-2.0) 04/19/22 07:14 Calcium 9.3 mg/dL (8.4-10.2) 05/03/22 04:24 Phosphorus 2.10 mg/dL (2.5-4.5) L 05/03/22 04:24 Magnesium 2.20 mg/dL (1.7-2.3) 05/03/22 04:24 Total Bilirubin 0.30 mg/dL (0.1-1.2) 04/20/22 05:30 AST 11 units/L (5-40) 04/20/22 05:30 ALT 7 units/L (7-56) 04/20/22 05:30 Alkaline Phosphatase 101 units/L (35-129) 04/20/22 05:30 Ammonia 25.0 umol/L (25-60) 04/19/22 04:53 Troponin T 0.415 ng/mL (0.00-0.029) H* 04/19/22 04:53 Total Protein 6.4 g/dL (6.3-8.2) 04/20/22 05:30 Albumin 2.4 g/dL (3.9-5) L 04/20/22 05:30 Albumin/Globulin Ratio 0.6 % 04/20/22 05:30 TSH 1.700 mlU/mL (0.270-4.200) 04/19/22 04:53 Free T4 0.28 ng/dL (0.76-1.46) L 04/19/22 04:53 Total Cortisol 24.4 mcg/dL () 04/27/22 04:45 Hepatitis A IgM Ab Non-reactive (NonReactive) 04/19/22 04:53 Hep Bs Antigen Non-reactive (Negative) 04/19/22 04:53 Hep B Core IgM Ab Non-reactive (NonReactive) 04/19/22 04:53 Hepatitis C Antibody Non-reactive (NonReactive) 04/19/22 04:53 Blood Type A POSITIVE 04/25/22 15:30 Antibody Screen Negative 04/25/22 15:30 Crossmatch See Detail 04/25/22 15:30 Cleary/IV: Voiding Method Incontinent Active Medications - Current Medications Current Medications: Generic Name Dose Route Start Last Admin Trade Name Freq PRN Reason Stop Dose Admin Acetaminophen 650 mg 04/22/22 20:12 04/29/22 09:43 Acetaminophen 325 Mg/10.15 Ml Oral Liqd Unit Dose PO 650 mg Q6H PRN Administration Pain MILD(1-3)/Fever >100.5/DRAKE Albumin Human 25 gm 04/21/22 13:00 04/22/22 16:31 Albumin Human 25% (25 Gm/100 Ml) Inj IV 25 gm BIANCA PRN Administration Hypotension Albuterol 2.5 mg 04/21/22 08:30 04/24/22 16:51 Albuterol 2.5 Mg/3 Ml Nebu IH 2.5 mg Q3HRT PRN Administration Shortness Of Breath Albuterol/Ipratropium 1 ampul 04/21/22 14:00 05/02/22 21:08 Ipratropium/Albuterol Sulfate 3 Ml Ampul.Neb IH 1 ampul TIDRT CONNOR Administration Docusate Sodium 100 mg 05/01/22 22:00 05/02/22 21:15 Docusate Sodium 100 Mg/10 Ml Oral Liqd FEEDTUBE Not Given BID CONNOR Epoetin Lb-epbx 20,000 unit 04/23/22 12:00 05/02/22 12:30 Epoetin Lb-Epbx 20,000 Unit/1 Ml Vial IV 20,000 unit BIANCA PRN Administration HEMODIALYSIS Sodium Chloride 100 mls @ 999 mls/hr 04/22/22 09:12 Nacl 0.9% IV BIANCA PRN Hypotension Lansoprazole 30 mg 04/23/22 10:00 05/02/22 10:11 Lansoprazole 30 Mg Solutab FEEDTUBE 30 mg QDAY CONNOR Administration Lorazepam 0.5 mg 04/25/22 09:59 Lorazepam 0.5 Mg Tab FEEDTUBE QDAY PRN Anxiety Memantine 5 mg 04/25/22 10:00 05/02/22 21:20 Memantine 5 Mg Tab FEEDTUBE 5 mg BID CONNOR Administration Metoclopramide HCl 5 mg 04/19/22 09:55 Metoclopramide 10 Mg/2 Ml Inj IV Q6H PRN Nausea And Vomiting Midodrine 20 mg 04/26/22 14:00 05/02/22 21:19 Midodrine 10 Mg Tab FEEDTUBE 20 mg TID CONNOR Administration Naloxone HCl 0.1 mg 04/19/22 09:55 Naloxone 0.4 Mg/1 Ml Inj IV Q2MIN PRN Res Rate </= 8 or 02 SAT < 92% Oxymetazoline HCl 2 spray 05/01/22 15:05 Oxymetazoline 0.05% Nasal [place] NS 05/04/22 15:04 Q12H PRN Nasal Congestion Polyethylene Glycol 17 gm 04/28/22 10:00 05/02/22 09:51 Polyethylene Glycol 3350 17 Gm Powder PO 17 gm QDAY CONNOR Administration Risperidone 0.5 mg 04/25/22 11:00 05/02/22 21:20 Risperidone 1 Mg Tab FEEDTUBE 0.5 mg BID CONNOR Administration Scopolamine 1 each 05/02/22 10:00 05/02/22 09:50 Scopolamine Transdermal Patch 72 Hr TD 1 each Q3D CONNOR Administration Senna 17.2 mg 04/23/22 10:00 05/02/22 21:15 Sennosides 8.6 Mg Tab FEEDTUBE Not Given BID CONNOR Sodium Chloride 10 ml 04/19/22 12:00 05/02/22 21:24 Sodium Chloride 0.9% 10 Ml Flush Syringe IV 10 ml BID CONNOR Administration Sodium Chloride 10 ml 04/19/22 11:19 Sodium Chloride 0.9% 10 Ml Flush Syringe IV PRN PRN LINE FLUSH Valproic Acid 750 mg 04/22/22 22:00 05/02/22 21:23 Valproic Acid 250 Mg/5 Ml Oral Liqd FEEDTUBE 750 mg BID CONNOR Administration Nutrition/Malnutrition Assess - Dietary Evaluation Nutrition/Malnutrition Findings: Nutrition Notes Start: 04/19/22 17:39 Freq: Status: Active Protocol: Document 05/01/22 12:29 MIRIAN (Rec: 05/01/22 13:08 MIRIAN [email or web address]) Nutrition Notes Initial or Follow up Reassessment Current Diagnosis CKD (stage V CKD),Hypertension ,Respiratory Failure, Malnutrition Other Pertinent Diagnosis Metabolic Encephalopathy, ESRD +HD, Anemia, NSTEMI II, SIRS, Dysphagia... Current Diet NPO (since 04/28 07:18), TF- Nepro w/CARBSTEADY @ 30 ml/hr (from D 05/01). Labs/Tests 05/01: Na 129, Cl 91.5, BUN 46 , Crea 3.1, Glu 180. Pertinent Medications 05/01: Nutritionally unremarkable. Height 5 ft 2 in Weight 54.43 kg [place] Body Weight (kg) 50.00 BMI 21.9 Weight change and time frame No body weight change reported in 12 days. Weight Status Appropriate Subjective/Other Information RD consult for routine F/U on TF tolerance/continuation. TF is on Hold, Pt has been on NPO for 3 days. Pt was scheduled for PEG-tube placement on 04/28; however, today Pt is still waiting for procedure, apparently has been rescheduled for 05/03. I spoke with RN over the phone and will ask MD if TF can be resumed mean while; will check later again. ---13:17, TF order received, I will place it on the chart. Pt is on Nasal Cannula, O2 saturation @ 94%, according to Physical Assessment History notes. Pt has missing teeth and caries, according to Physical Assessment History notes. Pt presents bilateral-UE pitting edema 3+, according to Physical Assessment History notes. Percent of energy/protein needs met: Pt currently on NPO. Prescribed TF-Nepro w/ CARBSTEADY @ 30 ml/hr provides for energy/protein needs (1, 269 Kcal/58 g) during LOS, 102 % Kcal; 89% AA. Burn Absent Trauma Absent GI Symptoms None Difficulty In Swallowing,Chewing Food Allergy Yes Skin Integrity/Comment Healing Sacral wound, intact. Current % PO Other Minimum of two criteria No Fluid Accumulation N/A Reduced Director Of Informatics Strength N/A (non-severe) Protein-Calorie Malnutrition N\A #1 Nutrition Diagnosis Swallowing difficulty Diagnosis Progress(for reassessment Continues documentation) Is patient on ventilator? No Is Patient Ambulatory and/or Out of Bed No REE-([facility]-confined to bed) [phone] Calculation Used for Recommendations [facility] Additional Notes Protein: >1.2 g/Kg ABW; >65 g/ day. Fluids: 1-1.5 L/day, or as per MD. Nutrition Intervention Nutrition Support: Resume Nepro w/CARBSTEADY @ 30 ml/hr. Flush: 130 ml water Q 4 hr, or as per MD. Kcal 1,269 Protein (gm) 58 Carbohydrates (gm) 116 Fat (gm) 58 Fluid (mL) 523 Fiber (gm) 9 % RDI: 102% Kcal; 89% AA. Goal #1 Provide at least 75% of energy /protein needs through Enteral Feeding during LOS. Follow-Up By: 05/03/22 Additional Comments Continue monitoring TF tolerance, PEG-tube placement, and BM.
[2022-05-02 14:36] LABS: ABG Base Excess 4.3 mmol/L (-2.0-3.0); ABG HCO3 29.1 mmol/L (20.0-26.0); ABG Methemoglobin 0.5 % (0.0-1.5); ABG PCO2 44.4 mm Hg; ABG PH 7.434 pH Units (7.350-7.450); ABG PO2 84.3 mm Hg (80.0-90.0)
--- NOTE | 2022-05-02 16:43 | Event Note ---
Date: 05/02/22 Episodes of desaturations, however ABG is appropriate. Patient seen this afternoon, hemodynamics appropriate Protecting her airway at this time. UF 500ml No acute indication for endotracheal intubation. Continue to monitor closely.
--- NOTE | 2022-05-02 18:36 | Gastroenterology Progress Note ---
Assessment and Plan - Patient Problems (1) Neurogenic dysphagia Current Visit: Yes Status: Acute Plan to address problem: - The patient appears stable for a PEG tube at present if no change in condition (will plan PEG Wed). - Continue tube feeds for now. Subjective Date of service: 05/02/22 Principal diagnosis: Neurogenic Dysphagia Interval history: The patient remains stable; she tolerated HD today and has weaned off pressors. She has had intermittent desats but remains off O2 other than NC. She has tolerated tube feeds via NC. Objective - Constitutional Vitals: Temp Pulse Resp BP Pulse Ox 98.2 F 110 H 25 H 144/65 98 05/02/22 17:02 05/02/22 15:47 05/02/22 15:47 05/02/22 13:30 05/02/22 15:49 General appearance: no acute distress - Respiratory Respiratory effort: labored (Mildly) Respiratory: bilateral: CTA (On O2) - Cardiovascular Rhythm: regular Heart Sounds: Present: S1 & S2 - Gastrointestinal General gastrointestinal: Present: soft, non-tender, non-distended - Labs CBC & Chem 7: 05/02/22 05:54 05/02/22 05:54 Labs: Laboratory Results - last 24 hr 05/02/22 05/02/22 05/02/22 05:54 05:54 05:54 WBC 8.7 RBC 2.85 L Hgb 8.3 L Hct 25.9 L MCV 91 MCH 29 MCHC 32 RDW 16.5 H Plt Count 180 ABG pH ABG pCO2 ABG pO2 ABG HCO3 ABG O2 Saturation ABG O2 Content ABG Base Excess ABG Hemoglobin ABG Carboxyhemoglobin ABG Methemoglobin Oxyhemoglobin FiO2 Sodium 130 L 128 L Potassium 3.9 4.0 Chloride 90.9 L 90.0 L Carbon Dioxide 26 25 Anion Gap 17 17 BUN 49 H 49 H Creatinine 3.7 H 3.8 H Estimated GFR 15 14 BUN/Creatinine Ratio 13 13 Glucose 191 H 184 H Calcium 9.5 9.6 05/02/22 14:15 WBC RBC Hgb Hct MCV MCH MCHC RDW Plt Count ABG pH 7.434 ABG pCO2 44.4 ABG pO2 84.3 ABG HCO3 29.1 H ABG O2 Saturation 97.0 ABG O2 Content 11.4 ABG Base Excess 4.3 H ABG Hemoglobin 8.4 L ABG Carboxyhemoglobin 1.8 ABG Methemoglobin 0.5 Oxyhemoglobin 94.8 L FiO2 100 Sodium Potassium Chloride Carbon Dioxide Anion Gap BUN Creatinine Estimated GFR BUN/Creatinine Ratio Glucose Calcium
--- NOTE | 2022-05-02 20:41 | Progress Note ---
Assessment and Plan Impression: * End stage renal disease * Acute hypoxic respiratory failure * AMS * SVT s/p cardioversion * SIRS * NSTEMI * Hypotension * Anemia secondary to ESRD * Secondary hyperparathyroidism * IJ thrombus Plan: * Will continue hemodialysis prn, last 04/29- plan to continue // provided patient is hemodynamically stable * Minimal UF removal given soft BP- adjust salt baths and temp prn * Dose medications for renal function * cardiology/pulmonary notes reviewed, appreciated * appreciate vascular regarding AVG * continue midodrine given soft BP * keep MAP>65, vasopressors prn * Avoid potential nephrotoxins * Epogen TIW prn * Renal/HD diet * Continue binders prn Subjective Date of service: 05/02/22 Principal diagnosis: Neurogenic Dysphagia Interval history: Seen in ICU. Remains on high flow. Objective - Exam Narrative Exam: General: No acute distress Head: NC/AT Eyes: normal appearance Neck: Normal appearance Chest: coarse lung sounds CV: Regular rate and rhythm, right arm dialysis access Abdomen: Soft, normal bowel sounds, nontender, nondistended Neuro: alert, oriented, no focal deficits - Vital Signs Vital signs: Vital Signs - 12hr 05/02/22 05/02/22 05/02/22 09:00 09:30 09:31 Temperature 99.5 F Pulse Rate 106 H 108 H 106 H Pulse Rate [ Anterior Bilateral Throughout] Pulse Rate [ From Monitor] Respiratory 22 22 Rate Respiratory Rate [Anterior Bilateral Throughout] Respiratory Rate [ generalized] Blood Pressure 112/53 122/60 119/54 O2 Sat by Pulse 97 94 Oximetry O2 Sat by Pulse 93 Oximetry [ Anterior Bilateral Throughout] 05/02/22 05/02/22 05/02/22 09:45 10:00 10:15 Temperature Pulse Rate 109 H 114 H 110 H Pulse Rate [ Anterior Bilateral Throughout] Pulse Rate [ From Monitor] Respiratory 19 Rate Respiratory Rate [Anterior Bilateral Throughout] Respiratory 25 H Rate [ generalized] Blood Pressure 127/57 127/67 117/58 O2 Sat by Pulse 95 Oximetry O2 Sat by Pulse Oximetry [ Anterior Bilateral Throughout] 05/02/22 05/02/22 05/02/22 10:30 10:45 11:00 Temperature Pulse Rate 111 H 109 H 112 H Pulse Rate [ Anterior Bilateral Throughout] Pulse Rate [ From Monitor] Respiratory 27 H 22 Rate Respiratory Rate [Anterior Bilateral Throughout] Respiratory Rate [ generalized] Blood Pressure 112/53 104/61 117/58 O2 Sat by Pulse 96 96 Oximetry O2 Sat by Pulse Oximetry [ Anterior Bilateral Throughout] 05/02/22 05/02/22 05/02/22 11:15 11:30 11:45 Temperature Pulse Rate 110 H 110 H 113 H Pulse Rate [ Anterior Bilateral Throughout] Pulse Rate [ From Monitor] Respiratory 26 H Rate Respiratory Rate [Anterior Bilateral Throughout] Respiratory Rate [ generalized] Blood Pressure 134/56 141/61 138/65 O2 Sat by Pulse 97 Oximetry O2 Sat by Pulse Oximetry [ Anterior Bilateral Throughout] 05/02/22 05/02/22 05/02/22 12:00 12:02 12:15 Temperature 99.3 F Pulse Rate 114 H 114 H Pulse Rate [ Anterior Bilateral Throughout] Pulse Rate [ 116 H From Monitor] Respiratory 14 Rate Respiratory Rate [Anterior Bilateral Throughout] Respiratory Rate [ generalized] Blood Pressure 138/65 129/61 O2 Sat by Pulse 97 Oximetry O2 Sat by Pulse Oximetry [ Anterior Bilateral Throughout] 05/02/22 05/02/22 05/02/22 12:30 12:31 13:00 Temperature 99.3 F Pulse Rate 116 H 116 H 114 H Pulse Rate [ Anterior Bilateral Throughout] Pulse Rate [ From Monitor] Respiratory 21 29 H Rate Respiratory Rate [Anterior Bilateral Throughout] Respiratory Rate [ generalized] Blood Pressure 116/53 116/53 146/58 O2 Sat by Pulse 98 90 Oximetry O2 Sat by Pulse 90 Oximetry [ Anterior Bilateral Throughout] 05/02/22 05/02/22 05/02/22 13:30 14:00 14:15 Temperature Pulse Rate 116 H 112 H 112 H Pulse Rate [ Anterior Bilateral Throughout] Pulse Rate [ From Monitor] Respiratory 34 H 26 H 22 Rate Respiratory Rate [Anterior Bilateral Throughout] Respiratory Rate [ generalized] Blood Pressure 144/65 117/62 128/52 O2 Sat by Pulse 84 98 99 Oximetry O2 Sat by Pulse Oximetry [ Anterior Bilateral Throughout] 05/02/22 05/02/22 05/02/22 14:30 14:45 15:00 Temperature Pulse Rate 121 H 113 H 114 H Pulse Rate [ Anterior Bilateral Throughout] Pulse Rate [ From Monitor] Respiratory 18 20 24 Rate Respiratory Rate [Anterior Bilateral Throughout] Respiratory Rate [ generalized] Blood Pressure 146/81 145/67 140/65 O2 Sat by Pulse 91 100 99 Oximetry O2 Sat by Pulse Oximetry [ Anterior Bilateral Throughout] 05/02/22 05/02/22 05/02/22 15:15 15:30 15:45 Temperature Pulse Rate 112 H 111 H 110 H Pulse Rate [ Anterior Bilateral Throughout] Pulse Rate [ From Monitor] Respiratory 25 H 26 H 29 H Rate Respiratory Rate [Anterior Bilateral Throughout] Respiratory Rate [ generalized] Blood Pressure 111/63 133/61 117/66 O2 Sat by Pulse 98 95 97 Oximetry O2 Sat by Pulse Oximetry [ Anterior Bilateral Throughout] 05/02/22 05/02/22 05/02/22 15:47 15:49 16:00 Temperature Pulse Rate 108 H Pulse Rate [ 110 H Anterior Bilateral Throughout] Pulse Rate [ 114 H From Monitor] Respiratory 25 H Rate Respiratory 25 H Rate [Anterior Bilateral Throughout] Respiratory Rate [ generalized] Blood Pressure 127/57 O2 Sat by Pulse 98 98 Oximetry O2 Sat by Pulse Oximetry [ Anterior Bilateral Throughout] 05/02/22 05/02/22 05/02/22 16:15 16:30 16:45 Temperature Pulse Rate 105 H 107 H 108 H Pulse Rate [ Anterior Bilateral Throughout] Pulse Rate [ From Monitor] Respiratory 24 34 H 35 H Rate Respiratory Rate [Anterior Bilateral Throughout] Respiratory Rate [ generalized] Blood Pressure 129/58 108/59 114/57 O2 Sat by Pulse 98 98 99 Oximetry O2 Sat by Pulse Oximetry [ Anterior Bilateral Throughout] 05/02/22 05/02/22 05/02/22 17:00 17:02 17:15 Temperature 98.2 F Pulse Rate 115 H 110 H Pulse Rate [ Anterior Bilateral Throughout] Pulse Rate [ From Monitor] Respiratory 36 H 18 Rate Respiratory Rate [Anterior Bilateral Throughout] Respiratory Rate [ generalized] Blood Pressure 118/57 121/70 O2 Sat by Pulse 97 92 Oximetry O2 Sat by Pulse Oximetry [ Anterior Bilateral Throughout] 05/02/22 05/02/22 05/02/22 17:30 17:45 18:00 Temperature Pulse Rate 109 H 107 H 113 H Pulse Rate [ Anterior Bilateral Throughout] Pulse Rate [ From Monitor] Respiratory 35 H 35 H 15 Rate Respiratory Rate [Anterior Bilateral Throughout] Respiratory Rate [ generalized] Blood Pressure 117/56 127/53 126/69 O2 Sat by Pulse 96 99 90 Oximetry O2 Sat by Pulse Oximetry [ Anterior Bilateral Throughout] 05/02/22 05/02/22 05/02/22 18:15 18:30 18:45 Temperature Pulse Rate 111 H 112 H 111 H Pulse Rate [ Anterior Bilateral Throughout] Pulse Rate [ From Monitor] Respiratory 22 29 H 19 Rate Respiratory Rate [Anterior Bilateral Throughout] Respiratory Rate [ generalized] Blood Pressure 111/41 118/57 105/57 O2 Sat by Pulse 94 96 94 Oximetry O2 Sat by Pulse Oximetry [ Anterior Bilateral Throughout] 05/02/22 19:00 Temperature Pulse Rate 115 H Pulse Rate [ Anterior Bilateral Throughout] Pulse Rate [ From Monitor] Respiratory 28 H Rate Respiratory Rate [Anterior Bilateral Throughout] Respiratory Rate [ generalized] Blood Pressure 140/72 O2 Sat by Pulse 89 Oximetry O2 Sat by Pulse Oximetry [ Anterior Bilateral Throughout] - Lab 05/02/22 05:54 05/02/22 05:54 Most recent lab results ABG pH 7.434 pH Units (7.350-7.450) 05/02/22 14:15 ABG pCO2 44.4 mm Hg 05/02/22 14:15 ABG pO2 84.3 mm Hg (80.0-90.0) 05/02/22 14:15 ABG HCO3 29.1 mmol/L (20.0-26.0) H 05/02/22 14:15 ABG O2 Saturation 97.0 % (95.0-99.0) 05/02/22 14:15 Calcium 9.5 mg/dL (8.4-10.2) 05/02/22 05:54 Calcium 9.6 mg/dL (8.4-10.2) 05/02/22 05:54 Phosphorus 2.50 mg/dL (2.5-4.5) 04/24/22 04:00 Magnesium 1.80 mg/dL (1.7-2.3) 04/24/22 04:00 Medications & Allergies - Medications Allergies/Adverse Reactions: Allergies buspirone [From BuSpar] Allergy (Verified 04/18/22 12:22) Unknown Penicillins Allergy (Verified 04/18/22 12:22) Rash corn Adverse Reaction (Verified 04/18/22 12:22) Unknown Home Medications: Home Medications Medication Instructions Recorded Confirmed Last Taken Type Sevelamer Carbonate [Renvela] 0.8 gram PO TIDWM 09/02/20 02/02/22 05/31/21 His tory HYDROcodone/APAP 5-325 [[place] 1 each PO Q4HR PRN #30 tablet 05/18/21 02/02/22 Unknown Rx 5-325 mg TAB] ALBUTEROL NEB's [Proventil 0.083% 2.5 mg IH Q3HRT PRN #1 nebu 03/03/22 Unknown Rx NEBS] Clopidogrel [Plavix] 75 mg PO QDAY #90 tablet 03/03/[address] [Depakote Dr] 750 mg PO BID #60 tablet 03/03/22 Unknown Rx LORazepam [Ativan] 1 mg PO DAILY #30 tab 03/03/22 Unknown Rx Memantine Xr [Namenda Xr] 5 mg PO DAILY #30 cap 03/03/22 Unknown Rx Midodrine [Proamatine] 10 mg PO TID #90 tab 03/03/22 Unknown Rx Pantoprazole [Protonix TAB] 40 mg PO DAILY #30 tab 03/03/22 Unknown Rx QUEtiapine [SEROquel] 400 mg PO BID #60 tab 03/03/22 Unknown Rx risperiDONE [RisperDAL] 0.5 mg PO BID #60 tab 03/03/22 Unknown Rx Active Medications: Generic Name Dose Route Start Last Admin Trade Name Freq PRN Reason Stop Dose Admin Acetaminophen 650 mg 04/22/22 20:12 04/29/22 09:43 Acetaminophen 325 Mg/10.15 Ml Oral Liqd Unit Dose PO 650 mg Q6H PRN Administration Pain MILD(1-3)/Fever >100.5/DRAKE Albumin Human 25 gm 04/21/22 13:00 04/22/22 16:31 Albumin Human 25% (25 Gm/100 Ml) Inj IV 25 gm BIANCA PRN Administration Hypotension Albuterol 2.5 mg 04/21/22 08:30 04/24/22 16:51 Albuterol 2.5 Mg/3 Ml Nebu IH 2.5 mg Q3HRT PRN Administration Shortness Of Breath Albuterol/Ipratropium 1 ampul 04/21/22 14:00 05/02/22 15:47 Ipratropium/Albuterol Sulfate 3 Ml Ampul.Neb IH 1 ampul TIDRT CONNOR Administration Docusate Sodium 100 mg 05/01/22 22:00 05/02/22 10:11 Docusate Sodium 100 Mg/10 Ml Oral Liqd FEEDTUBE 100 mg BID CONNOR Administration Epoetin Lb-epbx 20,000 unit 04/23/22 12:00 05/02/22 12:30 Epoetin Lb-Epbx 20,000 Unit/1 Ml Vial IV 20,000 unit BIANCA PRN Administration HEMODIALYSIS Sodium Chloride 100 mls @ 999 mls/hr 04/22/22 09:12 Nacl 0.9% IV BIANCA PRN Hypotension Lansoprazole 30 mg 04/23/22 10:00 05/02/22 10:11 Lansoprazole 30 Mg Solutab FEEDTUBE 30 mg QDAY CONNOR Administration Lorazepam 0.5 mg 04/25/22 09:59 Lorazepam 0.5 Mg Tab FEEDTUBE QDAY PRN Anxiety Memantine 5 mg 04/25/22 10:00 05/02/22 09:51 Memantine 5 Mg Tab FEEDTUBE 5 mg BID CONNOR Administration Metoclopramide HCl 5 mg 04/19/22 09:55 Metoclopramide 10 Mg/2 Ml Inj IV Q6H PRN Nausea And Vomiting Midodrine 20 mg 04/26/22 14:00 05/02/22 14:54 Midodrine 10 Mg Tab FEEDTUBE 20 mg TID CONNOR Administration Naloxone HCl 0.1 mg 04/19/22 09:55 Naloxone 0.4 Mg/1 Ml Inj IV Q2MIN PRN Res Rate </= 8 or 02 SAT < 92% Oxymetazoline HCl 2 spray 05/01/22 15:05 Oxymetazoline 0.05% Nasal [place] NS 05/04/22 15:04 Q12H PRN Nasal Congestion Polyethylene Glycol 17 gm 04/28/22 10:00 05/02/22 09:51 Polyethylene Glycol 3350 17 Gm Powder PO 17 gm QDAY CONNOR Administration Risperidone 0.5 mg 04/25/22 11:00 05/02/22 09:51 Risperidone 1 Mg Tab FEEDTUBE 0.5 mg BID CONNOR Administration Scopolamine 1 each 05/02/22 10:00 05/02/22 09:50 Scopolamine Transdermal Patch 72 Hr TD 1 each Q3D CONNOR Administration Senna 17.2 mg 04/23/22 10:00 05/02/22 09:49 Sennosides 8.6 Mg Tab FEEDTUBE 17.2 mg BID CONNOR Administration Sodium Chloride 10 ml 04/19/22 12:00 05/02/22 09:52 Sodium Chloride 0.9% 10 Ml Flush Syringe IV 10 ml BID CONNOR Administration Sodium Chloride 10 ml 04/19/22 11:19 Sodium Chloride 0.9% 10 Ml Flush Syringe IV PRN PRN LINE FLUSH Valproic Acid 750 mg 04/22/22 22:00 05/02/22 10:11 Valproic Acid 250 Mg/5 Ml Oral Liqd FEEDTUBE 750 mg BID CONNOR Administration
--- NOTE | 2022-05-03 04:48 | XRay Report ---
CHEST 1 VIEW 05/03/2022 3:37 AM INDICATION / CLINICAL INFORMATION: follow up respiratory failure. COMPARISON: 05/01/2022 FINDINGS: Complete opacification of the right lung new since prior examination. Left mid and lower lung opacity with left effusion persists. Tube extends within the stomach. Signer Name: Sohail Hastings MD Signed: 05/03/2022 4:44 AM Workstation Name: [id number]
[2022-05-03 05:24] LABS: Hematocrit 24.8 % (30.3-42.9); Hemoglobin 7.8 gm/dl (10.1-14.3); Mean Corpuscular HGB Conc 31 % (30-34); Mean Corpuscular Volume 91 fl (79-97); Platelet Count 160 K/mm3 (140-440); Red Blood Count 2.71 M/mm3 (3.65-5.03); Red Cell Distribution Width 16.6 % (13.2-15.2)
[2022-05-03 05:31] LABS: INR 0.96 (0.87-1.13)
[2022-05-03 05:32] LABS: Partial Thromboplastin Time 39.4 Sec. (24.2-36.6)
[2022-05-03 05:45] LABS: Calcium 9.3 mg/dL (8.4-10.2)
[2022-05-03] MEDS: IPRATROPIUM/ALBUTEROL SULFATE 3 ML AMPUL.NEB IH SCH ×3 (08:20→20:58)
[2022-05-03] MEDS: MIDODRINE 10 MG TAB FEEDTUBE SCH ×3 (08:31→21:14)
[2022-05-03] MEDS ORDERED: WATER FOR IRRIG STERILE 1,000 ML BOTTLE ONE (08:34)
[2022-05-03] MEDS ORDERED: WATER FOR IRRIG STERILE 250 ML BOTTLE IR ONE (08:34)
[2022-05-03] MEDS: NORepinephrine/NS 8 MG-250 ML 8 MG/250 ML INFUS..BTL IV SCH ×2 (10:00→21:48)
[2022-05-03] MEDS ORDERED: ROCURONIUM 50 MG/5 ML INJ IV ONE (10:00)
[2022-05-03] MEDS ORDERED: ACETYLCYSTEINE 20% 200 MG/1 ML *FOR INHALATION USE INHALATION SCH (10:00)
[2022-05-03] MEDS ORDERED: ETOMIDATE 20 MG/10 ML INJ IV ONE (10:00)
[2022-05-03] MEDS ORDERED: SODIUM CHLORIDE IRRI 1000 ML 1,000 ML IR ONE (10:11)
[2022-05-03] MEDS: risperiDONE 1 MG TAB FEEDTUBE SCH ×2 (10:12→21:13)
[2022-05-03] MEDS: DOCUSATE SODIUM 100 MG/10 ML ORAL LIQD FEEDTUBE SCH ×2 (10:13→21:13)
[2022-05-03] MEDS: MEMANTINE 5 MG TAB FEEDTUBE SCH ×2 (10:13→21:14)
[2022-05-03] MEDS: SENNOSIDES 8.6 MG TAB FEEDTUBE SCH ×2 (10:14→21:13)
[2022-05-03] MEDS: POLYETHYLENE GLYCOL 3350 17 GM POWDER FEEDTUBE SCH (10:14)
[2022-05-03] MEDS: LANSOPRAZOLE 30 MG SOLUTAB FEEDTUBE SCH (10:15)
[2022-05-03] MEDS: VALPROIC ACID 250 MG/5 ML ORAL LIQD FEEDTUBE SCH ×2 (10:20→21:13)
[2022-05-03] MEDS ORDERED: SODIUM CHLORIDE 0.9% IRR 1,000 ML BOTTLE IR ONE (10:30)
--- NOTE | 2022-05-03 10:56 | Progress Note ---
Assessment and Plan Acute hypoxemic respiratory failure on High flow oxygen therapy Atelectasis with mediastinal shift Acute on Chronic Hypotension- possibly secondary to sepsis Acute on Chronic Metabolic Encephalopathy Possible Shock Syndrome SVT Elevated troponin Bipolar disorder Schizophrenia, Hyperkalemia ESRD on hemodialysis Anemia of chronic disease, Type 2 NSTEMI GERD Subclinical Hypothyroidism Moderate protein caloric malnutrition Plan to intubate and bronch -Titrate supplemental oxygen to keep SpO2 90-92% -CXR, ABG as clinically indicated - Aspiration precautions, HOB >40 - continue bronchodilators with pulmonary hygiene per RT - wean per pulmonary driven protocols otherwise - enteral nutrition at goal rate as tolerated - femoral CVL replaced as no other viable site for access - Albumin 25 gms of 25% solution prn with dialysis - continue HD/UF per nephrology prescription for toxin and volume clearance - continue accuchecks with glycemic control per SSI (While critically ill target blood glucose of 140-180 mg/dL; avoid hypoglycemia) - avoid nephrotoxins, renally dose all medications - continue to avoid benzodiazepines, reduce the possibility of delirium - prn analgesia per CPOT score - Maintenance of sleep-wake cycle, avoid delirium - Stress ulcer (Lansoprazole) - mobility protocol, off loading and frequent turning per facility protocol to prevent pressure ulcers - Monitor hemodynamics closely - continue other care per attending / other consultants CONDITION: CRITICAL PROGNOSIS: GUARDED CODE STATUS: FULL CODE The high probability of a clinically significant, sudden or life-threatening deterioration of the [respiratory, cardiovascular, renal & neurologic] system(s) required my full and direct attention, intervention and personal management. The aggregate critical care time was [35] minutes without overlap. Time includes spent on; [x] Data Review and interpretation [x] Patient assessment and monitoring of vital signs [x] Documentation [x] Medication orders and management Subjective Date of service: 05/03/22 Principal diagnosis: Neurogenic Dysphagia Interval history: Seen and examined at bedside; 24hour events reviewed; nursing and respiratory care staff consulted; no adverse overnight events reported to me; resting in bed;off vasopressors; No fevers, no vomiting, no diarrhea Right femoral CVL for access Upper airway sounds unable to clear secretions, lethargic. Remains on HHFL at 100% and 40L, mentation is unchanged. CXR shows right hemiopacification Objective Vital Signs - 12hr 05/02/22 05/02/22 05/02/22 23:00 23:02 23:15 Temperature Pulse Rate 113 H 114 H 115 H Pulse Rate [ Anterior Bilateral Throughout] Pulse Rate [ From Monitor] Respiratory 28 H 29 H 37 H Rate Respiratory Rate [Anterior Bilateral Throughout] Respiratory Rate [ generalized] Blood Pressure 111/61 111/61 123/59 O2 Sat by Pulse 92 91 91 Oximetry 05/02/22 05/02/22 05/03/22 23:30 23:45 00:00 Temperature 98.0 F Pulse Rate 113 H 114 H 114 H Pulse Rate [ Anterior Bilateral Throughout] Pulse Rate [ 115 H From Monitor] Respiratory 30 H 30 H 25 H Rate Respiratory Rate [Anterior Bilateral Throughout] Respiratory Rate [ generalized] Blood Pressure 116/63 135/57 140/58 O2 Sat by Pulse 92 93 92 Oximetry 05/03/22 05/03/22 05/03/22 00:15 00:30 00:45 Temperature Pulse Rate 114 H 114 H 115 H Pulse Rate [ Anterior Bilateral Throughout] Pulse Rate [ From Monitor] Respiratory 32 H 35 H 28 H Rate Respiratory Rate [Anterior Bilateral Throughout] Respiratory Rate [ generalized] Blood Pressure 122/62 118/63 141/63 O2 Sat by Pulse 92 92 94 Oximetry 05/03/22 05/03/22 05/03/22 01:00 01:15 01:30 Temperature Pulse Rate 114 H 115 H 117 H Pulse Rate [ Anterior Bilateral Throughout] Pulse Rate [ From Monitor] Respiratory 32 H 32 H 22 Rate Respiratory Rate [Anterior Bilateral Throughout] Respiratory Rate [ generalized] Blood Pressure 131/62 133/61 120/63 O2 Sat by Pulse 95 91 91 Oximetry 05/03/22 05/03/22 05/03/22 01:45 01:50 02:00 Temperature Pulse Rate 118 H 115 H 115 H Pulse Rate [ Anterior Bilateral Throughout] Pulse Rate [ 117 H From Monitor] Respiratory 29 H 32 H 31 H Rate Respiratory Rate [Anterior Bilateral Throughout] Respiratory Rate [ generalized] Blood Pressure 120/53 120/49 O2 Sat by Pulse 91 92 97 Oximetry 05/03/22 05/03/22 05/03/22 02:15 02:30 02:45 Temperature Pulse Rate 117 H 116 H 116 H Pulse Rate [ Anterior Bilateral Throughout] Pulse Rate [ From Monitor] Respiratory 30 H 24 24 Rate Respiratory Rate [Anterior Bilateral Throughout] Respiratory Rate [ generalized] Blood Pressure 118/52 123/55 122/51 O2 Sat by Pulse 92 92 93 Oximetry 05/03/22 05/03/22 05/03/22 03:00 03:15 03:30 Temperature Pulse Rate 117 H 117 H 116 H Pulse Rate [ Anterior Bilateral Throughout] Pulse Rate [ From Monitor] Respiratory 29 H 24 16 Rate Respiratory Rate [Anterior Bilateral Throughout] Respiratory Rate [ generalized] Blood Pressure 120/53 125/52 136/66 O2 Sat by Pulse 93 93 94 Oximetry 05/03/22 05/03/22 05/03/22 03:45 04:00 04:15 Temperature Pulse Rate 116 H 113 H 112 H Pulse Rate [ Anterior Bilateral Throughout] Pulse Rate [ From Monitor] Respiratory 28 H 29 H 22 Rate Respiratory Rate [Anterior Bilateral Throughout] Respiratory Rate [ generalized] Blood Pressure 130/65 116/55 116/59 O2 Sat by Pulse 93 97 98 Oximetry 05/03/22 05/03/22 05/03/22 04:30 04:45 05:00 Temperature 97.9 F Pulse Rate 113 H 116 H 112 H Pulse Rate [ Anterior Bilateral Throughout] Pulse Rate [ From Monitor] Respiratory 28 H 29 H 31 H Rate Respiratory Rate [Anterior Bilateral Throughout] Respiratory Rate [ generalized] Blood Pressure 113/53 137/68 112/54 O2 Sat by Pulse 95 95 96 Oximetry 05/03/22 05/03/22 05/03/22 05:15 05:30 05:45 Temperature Pulse Rate 110 H 109 H 109 H Pulse Rate [ Anterior Bilateral Throughout] Pulse Rate [ From Monitor] Respiratory 29 H 30 H 30 H Rate Respiratory Rate [Anterior Bilateral Throughout] Respiratory Rate [ generalized] Blood Pressure 110/58 110/56 113/58 O2 Sat by Pulse 97 97 96 Oximetry 05/03/22 05/03/22 05/03/22 06:00 06:15 06:30 Temperature Pulse Rate 111 H 119 H 115 H Pulse Rate [ Anterior Bilateral Throughout] Pulse Rate [ From Monitor] Respiratory 28 H 12 21 Rate Respiratory Rate [Anterior Bilateral Throughout] Respiratory Rate [ generalized] Blood Pressure 128/61 149/70 132/62 O2 Sat by Pulse 97 94 92 Oximetry 05/03/22 05/03/22 05/03/22 06:45 07:00 07:15 Temperature Pulse Rate 113 H 114 H 116 H Pulse Rate [ Anterior Bilateral Throughout] Pulse Rate [ From Monitor] Respiratory 14 14 30 H Rate Respiratory Rate [Anterior Bilateral Throughout] Respiratory Rate [ generalized] Blood Pressure 134/57 142/70 156/77 O2 Sat by Pulse 95 93 90 Oximetry 05/03/22 05/03/22 05/03/22 07:30 07:45 08:00 Temperature 99.8 F H Pulse Rate 117 H 115 H 110 H Pulse Rate [ Anterior Bilateral Throughout] Pulse Rate [ 115 H From Monitor] Respiratory 18 16 30 H Rate Respiratory Rate [Anterior Bilateral Throughout] Respiratory Rate [ generalized] Blood Pressure 146/75 131/72 119/53 O2 Sat by Pulse 87 87 96 Oximetry 05/03/22 05/03/22 05/03/22 08:15 08:20 08:30 Temperature Pulse Rate 109 H 110 H Pulse Rate [ 110 H Anterior Bilateral Throughout] Pulse Rate [ From Monitor] Respiratory 32 H 35 H Rate Respiratory 21 Rate [Anterior Bilateral Throughout] Respiratory Rate [ generalized] Blood Pressure 110/49 106/49 O2 Sat by Pulse 95 97 Oximetry 05/03/22 05/03/22 05/03/22 08:45 09:00 09:15 Temperature Pulse Rate 111 H 106 H 108 H Pulse Rate [ Anterior Bilateral Throughout] Pulse Rate [ From Monitor] Respiratory 25 H 32 H 30 H Rate Respiratory Rate [Anterior Bilateral Throughout] Respiratory Rate [ generalized] Blood Pressure 128/63 98/43 120/61 O2 Sat by Pulse 95 97 94 Oximetry 05/03/22 05/03/22 09:30 09:38 Temperature Pulse Rate 107 H Pulse Rate [ Anterior Bilateral Throughout] Pulse Rate [ From Monitor] Respiratory 26 H Rate Respiratory Rate [Anterior Bilateral Throughout] Respiratory 22 Rate [ generalized] Blood Pressure 129/67 O2 Sat by Pulse 93 Oximetry Constitutional: lethargic, appears uncomfortable, other (eldely female with mildly increased respiratory effort at rest) Eyes: non-icteric ENT: oropharynx moist, oropharyngeal exudate pre (clear frothy) Neck: supple, no lymphadenopathy, no JVD Effort: mildly labored Ascultation: Bilateral: clear, diminished breath sounds, rhonchi, other (ref erred upper airway sounds) Percussion: Bilateral: not dull Cardiovascular: regular rate and rhythm, other (S1,S2) Gastrointestinal: normoactive bowel sounds, soft, non-tender, non-distended Integumentary: normal Extremities: no cyanosis, no edema, pulses normal, no ischemia or petechiae Neurologic: non-focal exam (grossly), pupils equal and round, other (lethargic, moaning and groaning) Psychiatric: other (flat affect) CBC and BMP: 05/09/22 04:25 05/09/22 04:25 ABG, PT/INR, D-dimer: ABG ABG pH 7.434 pH Units (7.350-7.450) 05/02/22 14:15 ABG pCO2 44.4 mm Hg 05/02/22 14:15 ABG pO2 84.3 mm Hg (80.0-90.0) 05/02/22 14:15 ABG O2 Saturation 97.0 % (95.0-99.0) 05/02/22 14:15 PT/INR, D-dimer PT 13.8 Sec. (12.2-14.9) 05/03/22 04:24 INR 0.96 (0.87-1.13) 05/03/22 04:24 Abnormal lab findings: Abnormal Labs 04/19/22 04/19/22 04/19/22 04:53 04:53 04:53 WBC RBC 3.06 L Hgb 8.6 L Hct 28.0 L RDW 16.3 H [place] % (Auto) 11.3 H Lymph # (Auto) PT INR APTT Heparin Anti-Xa Level ABG pO2 ABG HCO3 ABG Base Excess ABG Hemoglobin Oxyhemoglobin Sodium Potassium 5.1 H Chloride Carbon Dioxide 21 L BUN 94 H Creatinine 6.3 H Glucose POC Glucose Phosphorus Magnesium Troponin T 0.415 H* Albumin 2.7 L Free T4 0.28 L Crossmatch 04/19/22 04/19/22 04/20/22 19:40 19:40 05:30 WBC 4.1 L RBC 2.97 L Hgb 8.5 L 8.2 L Hct 27.8 L 27.1 L RDW 17.0 H [place] % (Auto) 15.2 H Lymph # (Auto) 1.1 L PT 17.9 H INR 1.28 H APTT 199.1 H* Heparin Anti-Xa Level ABG pO2 ABG HCO3 ABG Base Excess ABG Hemoglobin Oxyhemoglobin Sodium Potassium Chloride Carbon Dioxide BUN Creatinine Glucose POC Glucose Phosphorus Magnesium Troponin T Albumin Free T4 Crossmatch 04/20/22 04/20/22 04/21/22 05:30 18:23 00:29 WBC RBC Hgb Hct RDW [place] % (Auto) Lymph # (Auto) PT INR APTT Heparin Anti-Xa Level 0.17 L ABG pO2 ABG HCO3 ABG Base Excess ABG Hemoglobin Oxyhemoglobin Sodium Potassium Chloride Carbon Dioxide 21 L BUN 95 H Creatinine 6.6 H Glucose 139 H POC Glucose Phosphorus Magnesium 2.60 H Troponin T Albumin 2.4 L Free T4 Crossmatch 04/21/22 04/21/22 04/22/22 04:00 04:00 03:45 WBC RBC 2.74 L Hgb 7.7 L Hct 24.7 L RDW 16.6 H [place] % (Auto) Lymph # (Auto) PT INR APTT Heparin Anti-Xa Level < 0.10 L ABG pO2 ABG HCO3 ABG Base Excess ABG Hemoglobin Oxyhemoglobin Sodium 133 L Potassium Chloride Carbon Dioxide 20 L BUN 89 H Creatinine 6.6 H Glucose 131 H POC Glucose Phosphorus 6.40 H Magnesium 2.50 H Troponin T Albumin Free T4 Crossmatch 04/22/22 04/22/22 04/22/22 03:45 12:13 14:30 WBC RBC Hgb Hct RDW [place] % (Auto) Lymph # (Auto) PT INR APTT Heparin Anti-Xa Level 0.11 L 0.11 L ABG pO2 ABG HCO3 ABG Base Excess ABG Hemoglobin Oxyhemoglobin Sodium 136 L Potassium Chloride Carbon Dioxide 18 L BUN 90 H Creatinine 6.3 H Glucose 121 H POC Glucose Phosphorus 6.50 H Magnesium Troponin T Albumin Free T4 Crossmatch 04/22/22 04/23/22 04/23/22 23:08 02:17 04:10 WBC RBC Hgb 7.3 L Hct 23.3 L RDW [place] % (Auto) Lymph # (Auto) PT INR APTT Heparin Anti-Xa Level 0.14 L ABG pO2 ABG HCO3 ABG Base Excess ABG Hemoglobin Oxyhemoglobin Sodium Potassium Chloride Carbon Dioxide BUN Creatinine Glucose POC Glucose 153 H Phosphorus Magnesium Troponin T Albumin Free T4 Crossmatch 04/23/22 04/23/22 04/23/22 04:10 06:09 23:22 WBC RBC Hgb Hct RDW [place] % (Auto) Lymph # (Auto) PT INR APTT Heparin Anti-Xa Level ABG pO2 ABG HCO3 ABG Base Excess ABG Hemoglobin Oxyhemoglobin Sodium Potassium Chloride Carbon Dioxide BUN 36 H Creatinine 3.4 H Glucose 131 H POC Glucose 141 H 114 H Phosphorus Magnesium Troponin T Albumin Free T4 Crossmatch 04/24/22 04/24/22 04/24/22 02:10 04:00 04:00 WBC RBC 2.48 L Hgb 7.1 L Hct 22.6 L RDW 16.9 H [place] % (Auto) Lymph # (Auto) PT INR APTT Heparin Anti-Xa Level 0.12 L ABG pO2 ABG HCO3 ABG Base Excess ABG Hemoglobin Oxyhemoglobin Sodium 134 L Potassium Chloride Carbon Dioxide BUN 42 H Creatinine 3.9 H Glucose 141 H POC Glucose Phosphorus Magnesium Troponin T Albumin Free T4 Crossmatch 04/24/22 04/24/22 04/24/22 05:03 10:20 11:24 WBC RBC Hgb Hct RDW [place] % (Auto) Lymph # (Auto) PT INR APTT Heparin Anti-Xa Level < 0.10 L ABG pO2 ABG HCO3 ABG Base Excess ABG Hemoglobin Oxyhemoglobin Sodium Potassium Chloride Carbon Dioxide BUN Creatinine Glucose POC Glucose 142 H 144 H Phosphorus Magnesium Troponin T Albumin Free T4 Crossmatch 04/25/22 04/25/22 04/25/22 00:15 04:11 04:11 WBC 4.4 L RBC 2.38 L Hgb 6.7 L Hct 21.7 L RDW 17.2 H [place] % (Auto) Lymph # (Auto) PT INR APTT Heparin Anti-Xa Level ABG pO2 ABG HCO3 ABG Base Excess ABG Hemoglobin Oxyhemoglobin Sodium 134 L Potassium Chloride 97.1 L Carbon Dioxide BUN 47 H Creatinine 4.3 H Glucose 106 H POC Glucose 136 H Phosphorus Magnesium Troponin T Albumin Free T4 Crossmatch 04/25/22 04/25/22 04/25/22 06:01 15:30 22:44 WBC RBC Hgb 8.8 L Hct 28.1 L D RDW [place] % (Auto) Lymph # (Auto) PT INR APTT Heparin Anti-Xa Level ABG pO2 ABG HCO3 ABG Base Excess ABG Hemoglobin Oxyhemoglobin Sodium Potassium Chloride Carbon Dioxide BUN Creatinine Glucose POC Glucose 137 H Phosphorus Magnesium Troponin T Albumin Free T4 Crossmatch See Detail 04/26/22 04/27/22 04/27/22 04:20 04:45 04:45 WBC RBC 2.81 L 3.13 L Hgb 8.0 L 9.0 L Hct 25.4 L 29.1 L RDW 16.2 H 17.4 H [place] % (Auto) Lymph # (Auto) PT INR APTT Heparin Anti-Xa Level ABG pO2 ABG HCO3 ABG Base Excess ABG Hemoglobin Oxyhemoglobin Sodium 131 L Potassium Chloride 93.5 L Carbon Dioxide BUN 44 H Creatinine 3.9 H Glucose 135 H POC Glucose Phosphorus Magnesium Troponin T Albumin Free T4 Crossmatch 04/27/22 04/28/22 04/28/22 23:38 05:26 07:54 WBC 11.1 H RBC 2.40 L Hgb 6.9 L Hct 22.1 L D RDW 17.2 H [place] % (Auto) Lymph # (Auto) PT INR APTT Heparin Anti-Xa Level ABG pO2 ABG HCO3 ABG Base Excess ABG Hemoglobin Oxyhemoglobin Sodium Potassium Chloride Carbon Dioxide BUN Creatinine Glucose POC Glucose 229 H 169 H Phosphorus Magnesium Troponin T Albumin Free T4 Crossmatch 04/28/22 04/28/22 04/29/22 12:31 17:54 00:49 WBC RBC Hgb Hct RDW [place] % (Auto) Lymph # (Auto) PT INR APTT Heparin Anti-Xa Level ABG pO2 ABG HCO3 ABG Base Excess ABG Hemoglobin Oxyhemoglobin Sodium Potassium Chloride Carbon Dioxide BUN Creatinine Glucose POC Glucose 132 H 138 H 189 H Phosphorus Magnesium Troponin T Albumin Free T4 Crossmatch 04/29/22 04/29/22 04/29/22 06:42 10:54 10:54 WBC 11.8 H RBC 2.93 L Hgb 8.6 L Hct 26.2 L RDW 16.8 H [place] % (Auto) Lymph # (Auto) PT INR APTT Heparin Anti-Xa Level ABG pO2 ABG HCO3 ABG Base Excess ABG Hemoglobin Oxyhemoglobin Sodium 129 L Potassium Chloride 91.5 L Carbon Dioxide BUN 46 H Creatinine 3.1 H Glucose 180 H POC Glucose 196 H Phosphorus Magnesium Troponin T Albumin Free T4 Crossmatch 04/29/22 04/29/22 04/30/22 12:03 23:32 05:57 WBC RBC Hgb Hct RDW [place] % (Auto) Lymph # (Auto) PT INR APTT Heparin Anti-Xa Level ABG pO2 ABG HCO3 ABG Base Excess ABG Hemoglobin Oxyhemoglobin Sodium Potassium Chloride Carbon Dioxide BUN Creatinine Glucose POC Glucose 169 H 170 H 151 H Phosphorus Magnesium Troponin T Albumin Free T4 Crossmatch 04/30/22 04/30/22 04/30/22 11:28 16:39 23:22 WBC RBC Hgb Hct RDW [place] % (Auto) Lymph # (Auto) PT INR APTT Heparin Anti-Xa Level ABG pO2 ABG HCO3 ABG Base Excess ABG Hemoglobin Oxyhemoglobin Sodium Potassium Chloride Carbon Dioxide BUN Creatinine Glucose POC Glucose 159 H 147 H 170 H Phosphorus Magnesium Troponin T Albumin Free T4 Crossmatch 05/01/22 05/01/22 05/01/22 04:00 05:34 15:23 WBC RBC 2.92 L Hgb 8.4 L Hct 26.7 L RDW 16.6 H [place] % (Auto) Lymph # (Auto) PT INR APTT Heparin Anti-Xa Level ABG pO2 74.2 L ABG HCO3 27.8 H ABG Base Excess ABG Hemoglobin 8.7 L Oxyhemoglobin 94.5 L Sodium Potassium Chloride Carbon Dioxide BUN Creatinine Glucose POC Glucose 140 H Phosphorus Magnesium Troponin T Albumin Free T4 Crossmatch 05/02/22 05/02/22 05/02/22 05:54 05:54 05:54 WBC RBC 2.85 L Hgb 8.3 L Hct 25.9 L RDW 16.5 H [place] % (Auto) Lymph # (Auto) PT INR APTT Heparin Anti-Xa Level ABG pO2 ABG HCO3 ABG Base Excess ABG Hemoglobin Oxyhemoglobin Sodium 130 L 128 L Potassium Chloride 90.9 L 90.0 L Carbon Dioxide BUN 49 H 49 H Creatinine 3.7 H 3.8 H Glucose 191 H 184 H POC Glucose Phosphorus Magnesium Troponin T Albumin Free T4 Crossmatch 05/02/22 05/03/22 05/03/22 14:15 04:24 04:24 WBC RBC 2.71 L Hgb 7.8 L Hct 24.8 L RDW 16.6 H [place] % (Auto) Lymph # (Auto) PT INR APTT 39.4 H Heparin Anti-Xa Level ABG pO2 ABG HCO3 29.1 H ABG Base Excess 4.3 H ABG Hemoglobin 8.4 L Oxyhemoglobin 94.8 L Sodium Potassium Chloride Carbon Dioxide BUN Creatinine Glucose POC Glucose Phosphorus Magnesium Troponin T Albumin Free T4 Crossmatch 05/03/22 04:24 WBC RBC Hgb Hct RDW [place] % (Auto) Lymph # (Auto) PT INR APTT Heparin Anti-Xa Level ABG pO2 ABG HCO3 ABG Base Excess ABG Hemoglobin Oxyhemoglobin Sodium 132 L Potassium Chloride 93.0 L Carbon Dioxide BUN 31 H Creatinine 2.8 H Glucose 119 H POC Glucose Phosphorus 2.10 L Magnesium Troponin T Albumin Free T4 Crossmatch Chest x-ray: image reviewed Allied health notes reviewed: RT
--- NOTE | 2022-05-03 10:57 | Procedure Note ---
Date of procedure: 05/03/22 Pre-op diagnosis: Resp failure, right lung atelectasis with mediastinal shift Post-op diagnosis: same Procedure: Endotracheal intubation -RSI IV Etomidate 20mg x1. Rocuronium 50mg Using glidescope a size 7.5 tube was placed wihtout difficulty. Copious posterior pharyngeal secretions. One attempt, secured at the lip at 22cm. Good air entry bilaterally, with god color change. Position will be confirmed with bronchoscopy Anesthesia: other (RSI) Surgeon: QUINTON HALE Estimated blood loss: none Pathology: none Condition: critical Disposition: ICU
--- NOTE | 2022-05-03 10:57 | Procedure Note ---
Date of procedure: 05/03/22 Pre-op diagnosis: Right lung atelectasis with medioastinal shift, acute hypoxemic resp failur Post-op diagnosis: same Procedure: Fiberoptic bronchoscopy, airway inspection and therapeutic suctioning Previously intubated. Time out and universal precautions addressed. Patient pre-oxygenated to 100%, elbow connector placed. Bronchoscope inserted through ETT Mucous pug competed occluded the right main stem bronchus. Therapeutic suctioning with saline and diluted mucomyst with good results. Bronchial washings obtained from the right lung. Anesthesia: MAC Estimated blood loss: none Specimen disposition: to lab Condition: critical Disposition: ICU
--- NOTE | 2022-05-03 10:57 | Gastroenterology Progress Note ---
Assessment and Plan - Patient Problems (1) Neurogenic dysphagia Current Visit: Yes Status: Acute Plan to address problem: - We will defer PEG for now; plan tomorrow morning if continues stable on vent. - OK to give tube feeds today, and NPO after midnight. Subjective Date of service: 05/03/22 Principal diagnosis: Neurogenic Dysphagia Interval history: The patient was intubated and bronch done for mucus plugging this AM. She has been relatively stable since then. She has been tolerating tube feeds up until this point. Objective - Constitutional Vitals: Temp Pulse Resp BP Pulse Ox 99.8 F H 107 H 22 129/67 93 05/03/22 08:00 05/03/22 09:30 05/03/22 09:38 05/03/22 09:30 05/03/22 09:30 General appearance: no acute distress, other (Now intubated/sedated) - Respiratory Respiratory effort: normal Respiratory: bilateral: CTA (Vent) - Cardiovascular Rhythm: regular Heart Sounds: Present: S1 & S2 - Gastrointestinal General gastrointestinal: Present: soft, non-tender, non-distended - Labs CBC & Chem 7: 05/03/22 04:24 05/03/22 04:24 Labs: Laboratory Results - last 24 hr 05/02/22 05/03/22 05/03/22 14:15 04:24 04:24 WBC 7.9 RBC 2.71 L Hgb 7.8 L Hct 24.8 L MCV 91 MCH 29 MCHC 31 RDW 16.6 H Plt Count 160 PT 13.8 INR 0.96 APTT 39.4 H ABG pH 7.434 ABG pCO2 44.4 ABG pO2 84.3 ABG HCO3 29.1 H ABG O2 Saturation 97.0 ABG O2 Content 11.4 ABG Base Excess 4.3 H ABG Hemoglobin 8.4 L ABG Carboxyhemoglobin 1.8 ABG Methemoglobin 0.5 Oxyhemoglobin 94.8 L FiO2 100 Sodium Potassium Chloride Carbon Dioxide Anion Gap BUN Creatinine Estimated GFR BUN/Creatinine Ratio Glucose Calcium Phosphorus Magnesium 05/03/22 04:24 WBC RBC Hgb Hct MCV MCH MCHC RDW Plt Count PT INR APTT ABG pH ABG pCO2 ABG pO2 ABG HCO3 ABG O2 Saturation ABG O2 Content ABG Base Excess ABG Hemoglobin ABG Carboxyhemoglobin ABG Methemoglobin Oxyhemoglobin FiO2 Sodium 132 L Potassium 3.7 Chloride 93.0 L Carbon Dioxide 26 Anion Gap 17 BUN 31 H Creatinine 2.8 H Estimated GFR 20 BUN/Creatinine Ratio 11 Glucose 119 H Calcium 9.3 Phosphorus 2.10 L Magnesium 2.20
[2022-05-03] MEDS ORDERED: fentaNYL DRIP Premix 2,000 MCG/100 ML BAG IV SCH (11:00)
--- NOTE | 2022-05-03 11:26 | XRay Report ---
XR chest 1V ap INDICATION / CLINICAL INFORMATION: intubation. COMPARISON: Radiograph from earlier same day. FINDINGS: SUPPORT DEVICES: Endotracheal tube terminates appropriately over the midtrachea. Enteric catheter det alexandru separately. HEART /PULMONARY VASCULATURE: Heart size is nonenlarged. LUNGS / PLEURA: Significant improvement in previously complete opacification of the right hemithorax. Small bilateral pleural effusions appear improved from 05/01/2022 exam. Patchy bibasilar airspace opa cities remain. No pneumothorax. IMPRESSION: 1. Satisfactory position of endotracheal tube. 2. Improved opacification of the right hemithorax. Signer Name: Harris Stiles MD Signed: 05/03/2022 11:21 AM Workstation Name: [email or web address]
--- NOTE | 2022-05-03 11:29 | XRay Report ---
ABDOMEN 1 VIEW INDICATION / CLINICAL INFORMATION: feeding tube placement.. COMPARISON: KUB from 04/22/2022. FINDINGS: TUBES / LINES: An esophagogastric tube terminates appropriately over the gastric antrum. Unchanged ri ght common femoral CVL. BOWEL GAS PATTERN: There is generalized mild gaseous distention of the small bowel and colon. FREE AIR / EXTRALUMINAL GAS: None seen. ADDITIONAL FINDINGS: No significant additional findings. IMPRESSION: Satisfactory positioning of the esophagogastric tube with a nonspecific, nonobstructive bowel gas pat tern, possibly representing an ileus. Signer Name: Brandon Bird MD Signed: 05/03/2022 11:24 AM Workstation Name: [email or web address]
--- NOTE | 2022-05-03 14:19 | Anesthesia Consultation ---
Anesthesia Consult and Med Hx Date of service: 05/03/22 - Airway Anesthetic Teeth Evaluation: Poor (missing teeth) ROM Head & Neck: Adequate Mental/Hyoid Distance: Adequate Mallampati Class: Class III Intubation Access Assessment: Possibly Difficult - Pre-Operative Health Status ASA Pre-Surgery Classification: ASA4 Proposed Anesthetic Plan: MAC - Pulmonary Hx Respiratory Symptoms: Yes (respiratory failure, intubated) SOB: Yes - Cardiovascular System Hx Hypertension: Yes Hx Heart Attack/AMI: No (Type 2 NH) Hx Percutaneous Transluminal Coronary Angioplasty (PTCA): No Hx Cardia Arrhythmia: Yes (a-fib, SVT) - Central Nervous System Hx Seizures: Yes CVA: No Hx Psychiatric Problems: Yes (bipolar disorder, schizophrenia,vascular dementia, metabolic encephalopathy) - Gastrointestinal Hx Gastroesophageal Reflux Disease: Yes (neurogenic dysphagea) - Endocrine Hx End Stage Renal Disease: Yes (on dyalysis) Hx Liver Disease: No Hx Insulin Dependent Diabetes: No Hx Non-Insulin Dependent Diabetes: No Hx Thyroid Disease: No - Hematic Hx Anemia: Yes - Other Systems Hx Cancer: Yes Hx Obesity: No
--- NOTE | 2022-05-03 14:19 | Progress Note ---
<COLLETTE HANNA - Last Filed: 05/03/22 18:10> Assessment and Plan Assessment and plan: This is a 66-year-old female with known past medical history of HTN, GERD, Seizure disorder, vascular dementia, ESRD on HD(TTS), OA, bipolar disorder, schizophrenia, anxiety disorder, and limited mobility admitted for Acute hypxic respiratory, hypotension, and SVT s/p X2 doses adenosine and cardioversion. Hospital Course to Date: 04/20: Patient went into Afib with RVR overnight, now on amiodarone gtt per yan cuello. Patient remains in AFib with RVR this am, HR in the 120-140s. BP marginal on Levophed gtt, currently not a candidate for BB. Midodrine increased to 15mg TID. 2D Echo pending. On heparin gtt per protocol. No HD today per nephro due to hypotension and tachycardia. 04/21: Converted to SR this am, remains on Amiodarone and heparin. Awaiting cardio final recommendations. Still on Levophed gtt for low BP, given patient history of chronic hypotension, Wean pressor for MAP goal of 60s. Patient is pocketing foods, currently NPO, awaiting speech eval and treat. 04/22: Patient passed speech swallow eval yesterday, however, patient is refusing PO intakes including meds. Will insert DHT for nutrition and meds administration. Patient remains in SR this am, amiodaron gtt transitioned to PO per cardio. Patient remains on heparin and Levophed gtt. Patient has not received PO midrodrine for 24hrs, resume meds once DHT is inserted. Keep femoral CVC for another 24hrs, anticipating will be able to wean off pressor once patient receive midodrine. Will reassess in the morning. No HD overnight, unable to cannulate AVF, plan to attempt again today per Nephro. Possible IR/Vascular surgery consult if unsuccessful again today. 04/23: Mentation a lot better this am. DHT was inserted, meds resumed and TF initiated. Levophed gtt increased overnight due to worsen hypotension, suspected it is due to sedative agents. Seroquel decreased to 200mg BID and scheduled ativan switched to PRN. Continue midodrine TID and wean off levophed gtt for MAP goal of 60. Patient tolerated HD yesterday, continue iHD per Nephrology. CCM recommendations noted, Chest US ordered for pleural effusion. 04/24: RN instructed to wean Levophed off, goal MAP of 60. Heparin drip stopped due to decreasing hemoglobin. 04/25: had cleared the patient for pured diet which will be started today, hemodialysis planned for today, patient was to be anemic and will receive 1 unit PRBC with HD. We will increase midodrine to 20 mg 3 times daily if patient becomes hypotensive during dialysis. Per CCM. Decrease in seroqoul but will increase if needed 04/26: Patient agreeable to PEG, GI consulted for placement. Femoral line removed 04/27: No acute events reported overnight, patient has been cardiac cleared for PEG tube placement. Possible PEG in the a.m. This afternoon attempted to place IJ CVL which was unsuccessful and Dr. Mcguire ultimately placed femoral CVL for the initiation of Levophed. HD scheduled for today. 04/28: Patient initially started on Levophed yesterday and she received a femoral CVL. 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 Vascular surgery was consulted. Patient also noted to be anemic and received 1 unit PRBC today. 04/29: Possible hemodialysis today, patient was able to be weaned off of Levophed today. Hemoglobin responded well to 1 unit PRBC. Awaiting trach/PEG placement. Patient will not need to be started on heparin drip per vascular surgery. No acute events reported overnight. 04/30: HD yesterday without removal of fluids, patient needs NT suctioning. Updated son today. 05/01: Patient with increase mucous production and is unable to fully clear her airway, Rhonchi auscultated throughout her lungs this am. SPO2 at 90 to 94% on 3L NC. D/W CCM, patient is high risk for aspiration will placed patient on heated HF at 40L for now instead of Bipap. Nasal bleeding also noted, mostly due to NT suctioning. Refrain from NT suctioning for now due to bleeding, only oral suctioning. PO seroquel held this amP atient is AAO, appropriate, and following commands. Levophed gtt weaned off, patient remains hemodynamically stable. Will discuss Nephro for possible fluid removal tonight or early tomorrow. Very low threshold for intubation. Patient's condition and plan of care, including possible intubation, thoroughly discussed with patient's son-Raymundo Randolph at . Patient's son verbalized understanding of the info provided and agreed with intubation if necessary. 05/02: Remains on HHFL at 40% and 40L, mentation is unchanged. HD at the bedside, plan for possible UF with fluid removal today. Continue O2 supplementation and wean as tolerated, for SPO2 above 92%. Repeat CXR in the am. Patient vital signs remains stable, still off pressors. Plan for possible PEG-tube placement by GI tomorrow, NPO after MN. Possible fistulogram for RIJ thrombus on or sunday per Vascular Surgery. 05/03: Complete white-out of right side from this am CXR, probable mucus plug. S/p intubation and bronch at the bedside by [facility]. Patient remains sedated and required short duration of Levophed gtt during the procedure. Pressor was wean off, VSS. Plan for CPT and mucomyst Q12hrs. Repeat CXR in the am. PEG-Tube placement postpone for possibly tomorrow if patient remains stable. Possible fistulogram for RIJ thrombus on or Sunday per Vascular Surgery. Assessement and Plan #Atrial Fibrillation with RVR #Supraventricular Tachycardia s/p Cardioversion #Acute on Chronic Hypotension #NSTEMI Type 2 - Presented with AMS, Tachycardia, and hypotension requiring pressors - was found in SVT in the ED s/p unsuccessful X2 doses of adenosine then cardioversion. - Patient initially converted to SR post cardioversion, then went into afib RVR in the ICU - Elevated troponin most likely related to ESRD - Cardiology consulted, appreciate recommendations - s/p Amio gtt now on PO per Cardio - Patient remains in SR - Levophed gtt weaned off - Continue Midodrine TID - Continue blood pressure monitor per protocol - Titrate pressors for MAP goal of 60 - Not a candidate for MARGOTH, ARB, and BB due to hypotension - 2D Echo EF 60-65% - on Lipitor and Plavix - CCM also following #Acute Hypoxic Respiratory Failure #Moderate Pleural Effusion - with worsening respiratory status this am - Complete white-out of right side from this am CXR, probable mucus plug - 05/01 s/p Intubation and bronch at the bedside by CCM - Vent setting: PRVC-100%,10,20,450 - Post intubation ABG pending - [facility] consulted, appreciate recommendations - Plan for CPT at least 4 to 6 times a day, and Mucomyst q12hrs - VAP bundle addressed - Aspiration precaution HOB above 30 - Daily SBT and SAT trials as tolerated - Daily ABG and CXR - Continue SPO2 monitoring for SPO2 goal above 92% #Acute Metabolic Encephalopathy #H/o Vascular Dementia #Severe Anxiety #Bipolar Disorder & Schizophrenia - Presented with AMS, probably due to above - s/p intubated, now sedated post procedure - Now continue sedation gtt warranted at this time - Continue home meds - PRN Analgesia for pain control/vent synchrony - Maintenance of sleep-wake cycle - Mental Health/Psych on consult #End-Stage Renal Disease(ESRD) on HD - Nephrology on consult, appreciated recommendation - HD yesterday, 500cc removed - Continue iHD per Nephro - Strict intake and output - Avoid nephrotoxic medications; Renally dose medications - Monitor and replace electrolytes as needed #Anemia of Chronic Disease #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 Plan for possible vascular intervention sometimes this week - AC on hold due to worsen anemia #H/o Seizure Disorder - Resume home meds #Dysphagia #Moderate Protein Caloric Malnutrition - Failed speech swallow- they recommended PEG-Tube - GI consulted, appreciate recommendation - Plan for PEG-Tube placed on Sunday - On enteral nutrition - Nutrition consulted #GI/DVT Prophylaxis - PPI- Protonix - SCDs to bilateral lower extremities while in bed #Advance Care Planning - Disease education data, care plan, diagnoses, and prognosis were discussed with patient's son at the bedside. Patient is a FULL code. Patient acknowledged understanding and agreed with current care plan. The high probability of a clinically significant, sudden or life threatening deterioration of the [multiple] system(s) required my full and direct attention, intervention and personal management. The aggregate critical care time was [60] minutes. This time is in addition to time spent performing reported procedures but includes the following: [x] Data Review and interpretation [x] Patient assessment and monitoring of vital signs [x] Documentation [x] Medication orders and management Disposition Plan: ICU Total Time Spent with Patient (Minutes): 60 History Interval history: Patient seen and examined at the bedside. Complete White-out of right side from this am CXR, s/p Intubation and bronch at the bedside. Patient remains sedated and required short duration of Levophed gtt during the procedure. Levophed gtt is off now, VSS. Hospitalist Physical - Physical exam Narrative exam: General appearance: Present: No acute distress, well-nourished, obese, Other (Intubated and sedated) - EENT Eyes: Present: PERRL ENT: hearing intact, poor dentition - Neck Neck: Present: normal ROM - Respiratory Respiratory effort: normal Respiratory: bilateral: diminished - Cardiovascular Rhythm: irregularly irregular Heart Sounds: Present: S1 & S2 - Extremities Extremities: no ischemia, pulses intact, pulses symmetrical Extremity abnormal: edema - Peripheral Assessment Generalized Edema Type: pitting Edema Degree: 2+ Capillary Refill: < 3 seconds Skin Temperature: Warm Peripheral Pulses: within normal limits Right Upper Extremity Edema Type: pitting Edema Degree: 3+ Capillary Refill: < 3 seconds Skin Temperature: Warm Peripheral Pulses: within normal limits - Abdominal General gastrointestinal: soft, non-distended, normal bowel sounds - Integumentary Integumentary: Present: warm, dry - Psychiatric Psychiatric: appropriate mood/affect, cooperative, other (Intubated and sedated) - Neurologic Neurologic: moves all extremities, other (Intubated and sedated) - Allied Health Allied health notes reviewed: nursing, case management - Constitutional Vitals: Temp Pulse Resp BP Pulse Ox 99.8 F H 114 H 20 96/48 100 05/03/22 08:00 05/03/22 13:00 05/03/22 13:00 05/03/22 13:00 05/03/22 13:00 HEART Score - HEART Score Troponin: Troponin T 0.415 ng/mL (0.00-0.029) H* 04/19/22 04:53 Results - Labs CBC & Chem 7: 05/03/22 04:24 05/03/22 04:24 Labs: Laboratory Last Values WBC 7.9 K/mm3 (4.5-11.0) 05/03/22 04:24 RBC 2.71 M/mm3 (3.65-5.03) L 05/03/22 04:24 Hgb 7.8 gm/dl (10.1-14.3) L 05/03/22 04:24 Hct 24.8 % (30.3-42.9) L 05/03/22 04:24 MCV 91 fl (79-97) 05/03/22 04:24 MCH 29 pg (28-32) 05/03/22 04:24 MCHC 31 % (30-34) 05/03/22 04:24 RDW 16.6 % (13.2-15.2) H 05/03/22 04:24 Plt Count 160 K/mm3 (140-440) 05/03/22 04:24 Lymph % (Auto) 26.7 % (13.4-35.0) 04/20/22 05:30 [place] % (Auto) 15.2 % (0.0-7.3) H 04/20/22 05:30 Eos % (Auto) 3.8 % (0.0-4.3) 04/20/22 05:30 Baso % (Auto) 1.2 % (0.0-1.8) 04/20/22 05:30 Lymph # (Auto) 1.1 K/mm3 (1.2-5.4) L 04/20/22 05:30 [place] # (Auto) 0.6 K/mm3 (0.0-0.8) 04/20/22 05:30 Eos # (Auto) 0.2 K/mm3 (0.0-0.4) 04/20/22 05:30 Baso # (Auto) 0.0 K/mm3 (0.0-0.1) 04/20/22 05:30 Seg Neutrophils % 53.1 % (40.0-70.0) 04/20/22 05:30 Seg Neutrophils # 2.2 K/mm3 (1.8-7.7) 04/20/22 05:30 PT 13.8 Sec. (12.2-14.9) 05/03/22 04:24 INR 0.96 (0.87-1.13) 05/03/22 04:24 APTT 39.4 Sec. (24.2-36.6) H 05/03/22 04:24 Heparin Anti-Xa Level < 0.10 U.I./ml (0.3-0.7) L 04/24/22 10:20 ABG pH 7.434 pH Units (7.350-7.450) 05/02/22 14:15 ABG pCO2 44.4 mm Hg 05/02/22 14:15 ABG pO2 84.3 mm Hg (80.0-90.0) 05/02/22 14:15 ABG HCO3 29.1 mmol/L (20.0-26.0) H 05/02/22 14:15 ABG O2 Saturation 97.0 % (95.0-99.0) 05/02/22 14:15 ABG O2 Content 11.4 (0.0-44) 05/02/22 14:15 ABG Base Excess 4.3 mmol/L (-2.0-3.0) H 05/02/22 14:15 ABG Hemoglobin 8.4 gm/dl (12.0-16.0) L 05/02/22 14:15 ABG Carboxyhemoglobin 1.8 % (0.0-5.0) 05/02/22 14:15 ABG Methemoglobin 0.5 % (0.0-1.5) 05/02/22 14:15 Oxyhemoglobin 94.8 % (95.0-99.0) L 05/02/22 14:15 FiO2 100 % 05/02/22 14:15 Sodium 132 mmol/L (137-145) L 05/03/22 04:24 Potassium 3.7 mmol/L (3.6-5.0) 05/03/22 04:24 Chloride 93.0 mmol/L (98-107) L 05/03/22 04:24 Carbon Dioxide 26 mmol/L (22-30) 05/03/22 04:24 Anion Gap 17 mmol/L 05/03/22 04:24 BUN 31 mg/dL (7-17) H 05/03/22 04:24 Creatinine 2.8 mg/dL (0.6-1.2) H 05/03/22 04:24 Estimated GFR 20 ml/min 05/03/22 04:24 BUN/Creatinine Ratio 11 % 05/03/22 04:24 Glucose 119 mg/dL (65-100) H 05/03/22 04:24 POC Glucose 140 mg/dL (70-105) H 05/01/22 05:34 Lactic Acid 1.60 mmol/L (0.7-2.0) 04/19/22 07:14 Calcium 9.3 mg/dL (8.4-10.2) 05/03/22 04:24 Phosphorus 2.10 mg/dL (2.5-4.5) L 05/03/22 04:24 Magnesium 2.20 mg/dL (1.7-2.3) 05/03/22 04:24 Total Bilirubin 0.30 mg/dL (0.1-1.2) 04/20/22 05:30 AST 11 units/L (5-40) 04/20/22 05:30 ALT 7 units/L (7-56) 04/20/22 05:30 Alkaline Phosphatase 101 units/L (35-129) 04/20/22 05:30 Ammonia 25.0 umol/L (25-60) 04/19/22 04:53 Troponin T 0.415 ng/mL (0.00-0.029) H* 04/19/22 04:53 Total Protein 6.4 g/dL (6.3-8.2) 04/20/22 05:30 Albumin 2.4 g/dL (3.9-5) L 04/20/22 05:30 Albumin/Globulin Ratio 0.6 % 04/20/22 05:30 TSH 1.700 mlU/mL (0.270-4.200) 04/19/22 04:53 Free T4 0.28 ng/dL (0.76-1.46) L 04/19/22 04:53 Total Cortisol 24.4 mcg/dL () 04/27/22 04:45 Hepatitis A IgM Ab Non-reactive (NonReactive) 04/19/22 04:53 Hep Bs Antigen Non-reactive (Negative) 04/19/22 04:53 Hep B Core IgM Ab Non-reactive (NonReactive) 04/19/22 04:53 Hepatitis C Antibody Non-reactive (NonReactive) 04/19/22 04:53 Blood Type A POSITIVE 04/25/22 15:30 Antibody Screen Negative 04/25/22 15:30 Crossmatch See Detail 04/25/22 15:30 Cleary/IV: Voiding Method Incontinent Active Medications - Current Medications Current Medications: Generic Name Dose Route Start Last Admin Trade Name Freq PRN Reason Stop Dose Admin Acetaminophen 650 mg 04/22/22 20:12 04/29/22 09:43 Acetaminophen 325 Mg/10.15 Ml Oral Liqd Unit Dose PO 650 mg Q6H PRN Administration Pain MILD(1-3)/Fever >100.5/DRAKE Acetylcysteine 200 mg 05/03/22 10:00 05/03/22 10:20 Acetylcysteine 20% 200 Mg/1 Ml *For Inhalation Use* INHALATION 200 mg Q12HRT CONNOR Administration Albumin Human 25 gm 04/21/22 13:00 04/22/22 16:31 Albumin Human 25% (25 Gm/100 Ml) Inj IV 25 gm BIANCA PRN Administration Hypotension Albuterol 2.5 mg 04/21/22 08:30 04/24/22 16:51 Albuterol 2.5 Mg/3 Ml Nebu IH 2.5 mg Q3HRT PRN Administration Shortness Of Breath Albuterol/Ipratropium 1 ampul 04/21/22 14:00 05/03/22 08:20 Ipratropium/Albuterol Sulfate 3 Ml Ampul.Neb IH 1 ampul TIDRT CONNOR Administration Docusate Sodium 100 mg 05/01/22 22:00 05/03/22 10:13 Docusate Sodium 100 Mg/10 Ml Oral Liqd FEEDTUBE Not Given BID [facility] Epoetin Lb-epbx 20,000 unit 04/23/22 12:00 05/02/22 12:30 Epoetin Lb-Epbx 20,000 Unit/1 Ml Vial IV 20,000 unit BIANCA PRN Administration HEMODIALYSIS Fentanyl 50 mcg 05/03/22 10:29 Fentanyl 100 Mcg/2 Ml Inj IV Q10MIN PRN ANALGESIA Sodium Chloride 100 mls @ 999 mls/hr 04/22/22 09:12 Nacl 0.9% IV BIANCA PRN Hypotension Fentanyl Citrate 2,000 mcg in 100 mls @ 2.722 mls/hr 05/03/22 11:00 Fentanyl Drip Premix IV TITR CONNOR Protocol 1 MCG/KG/HR NORepinephrine/NS 8 MG-250 ML 8 mg in 250 mls @ 3.75 mls/hr 05/03/22 13:15 05/03/22 13:31 Norepinephrine/Ns 8 Mg-250 Ml (Double Conc) IV 4 mcg/min TITRATE CONNOR 7.5 mls/hr Titration Protocol 2 MCG/MIN Lansoprazole 30 mg 04/23/22 10:00 05/03/22 10:15 Lansoprazole 30 Mg Solutab FEEDTUBE 30 mg QDAY CONNOR Administration Lorazepam 0.5 mg 04/25/22 09:59 Lorazepam 0.5 Mg Tab FEEDTUBE QDAY PRN Anxiety Memantine 5 mg 04/25/22 10:00 05/03/22 10:13 Memantine 5 Mg Tab FEEDTUBE 5 mg BID CONNOR Administration Metoclopramide HCl 5 mg 04/19/22 09:55 Metoclopramide 10 Mg/2 Ml Inj IV Q6H PRN Nausea And Vomiting Midodrine 20 mg 04/26/22 14:00 05/03/22 13:21 Midodrine 10 Mg Tab FEEDTUBE 20 mg TID CONNOR Administration Naloxone HCl 0.1 mg 04/19/22 09:55 Naloxone 0.4 Mg/1 Ml Inj IV Q2MIN PRN Res Rate </= 8 or 02 SAT < 92% Oxymetazoline HCl 2 spray 05/01/22 15:05 Oxymetazoline 0.05% Nasal [place] NS 05/04/22 15:04 Q12H PRN Nasal Congestion Polyethylene Glycol 17 gm 05/03/22 10:00 05/03/22 10:14 Polyethylene Glycol 3350 17 Gm Powder FEEDTUBE Not Given QDAY CONNOR Risperidone 0.5 mg 04/25/22 11:00 05/03/22 10:12 Risperidone 1 Mg Tab FEEDTUBE 0.5 mg BID CONNOR Administration Scopolamine 1 each 05/02/22 10:00 05/02/22 09:50 Scopolamine Transdermal Patch 72 Hr TD 1 each Q3D CONNOR Administration Senna 17.2 mg 04/23/22 10:00 05/03/22 10:14 Sennosides 8.6 Mg Tab FEEDTUBE Not Given BID CONNOR Sodium Chloride 10 ml 04/19/22 12:00 05/03/22 10:13 Sodium Chloride 0.9% 10 Ml Flush Syringe IV 10 ml BID CONNOR Administration Sodium Chloride 10 ml 04/19/22 11:19 Sodium Chloride 0.9% 10 Ml Flush Syringe IV PRN PRN LINE FLUSH Valproic Acid 750 mg 04/22/22 22:00 05/03/22 10:20 Valproic Acid 250 Mg/5 Ml Oral Liqd FEEDTUBE 750 mg BID CONNOR Administration Nutrition/Malnutrition Assess - Dietary Evaluation Nutrition/Malnutrition Findings: Nutrition Notes Start: 04/19/22 17:39 Freq: Status: Active Protocol: Document 05/03/22 11:10 MIRIAN (Rec: 05/03/22 11:27 MIRIAN [id number]) Nutrition Notes Initial or Follow up Brief Note Current Diagnosis CKD (stage V CKD),Hypertension ,Respiratory Failure, Malnutrition Other Pertinent Diagnosis Metabolic Encephalopathy, ESRD +HD, Anemia, NSTEMI II, SIRS, Dysphagia... Current Diet NPO (since 05/03 00:01). Height 5 ft 2 in Weight 54.43 kg [place] Body Weight (kg) 50.00 BMI 21.9 Weight change and time frame No body weight change reported in 2 weeks. Weight Status Appropriate Subjective/Other Information RD consult for routine F/U on TF tolerance/continuation assessment. Pt continues on NPO. Pt has been intubated few minutes ago, PEG placement has been deferred for 05/04 if Pt remains stable on the vent, according to Gastroenterology notes. TF will be resumed today and Pt will be NPO from 05/04 00: 01, according to Gastroenterology notes. Percent of energy/protein needs met: Pt temporarily on NPO. Prescribed TF-Nepro w/ CARBSTEADY @ 30 ml/hr provides for energy/protein needs (1, 269 Kcal/58 g) during LOS, 102 % Kcal; 89% AA. #1 Nutrition Diagnosis Swallowing difficulty Diagnosis Progress(for reassessment Continues documentation) Is patient on ventilator? No Is Patient Ambulatory and/or Out of Bed No REE-([facility]-confined to bed) [phone] Calculation Used for Recommendations [facility] Additional Notes Protein: >1.2 g/Kg ABW; >65 g/ day. Fluids: 1-1.5 L/day, or as per MD. Nutrition Intervention Nutrition Support: Resume Nepro w/CARBSTEADY @ 30 ml/hr. Flush: 130 ml water Q 4 hr, or as per MD. Kcal 1,269 Protein (gm) 58 Carbohydrates (gm) 116 Fat (gm) 58 Fluid (mL) 523 Fiber (gm) 9 % RDI: 102% Kcal; 89% AA. Goal #1 Provide at least 75% of energy /protein needs through Enteral Feeding during LOS. Follow-Up By: 05/05/22 Additional Comments Continue monitoring TF tolerance, PEG-tube placement, and BM. <MELINDA BOWEN - Last Filed: 05/04/22 07:21> Assessment and Plan Assessment and plan: I saw and evaluated the patient. I agree with the findings and the plan of care as documented in the Nurse Practitioner's~note, with the following corrections a nd additions. Hospitalist Physical - Constitutional Vitals: Temp Pulse Resp BP Pulse Ox 98.8 F 88 15 100/45 100 05/04/22 04:00 05/04/22 06:00 05/04/22 06:00 05/04/22 06:00 05/04/22 06:00 HEART Score - HEART Score Troponin: Troponin T 0.415 ng/mL (0.00-0.029) H* 04/19/22 04:53 Results - Labs CBC & Chem 7: 05/04/22 04:26 05/04/22 04:26 Labs: Laboratory Last Values WBC 16.0 K/mm3 (4.5-11.0) H 05/04/22 04:26 RBC 2.39 M/mm3 (3.65-5.03) L 05/04/22 04:26 Hgb 6.9 gm/dl (10.1-14.3) L 05/04/22 04:26 Hct 21.4 % (30.3-42.9) L 05/04/22 04:26 MCV 90 fl (79-97) 05/04/22 04:26 MCH 29 pg (28-32) 05/04/22 04:26 MCHC 32 % (30-34) 05/04/22 04:26 RDW 15.8 % (13.2-15.2) H 05/04/22 04:26 Plt Count 197 K/mm3 (140-440) 05/04/22 04:26 Lymph % (Auto) 26.7 % (13.4-35.0) 04/20/22 05:30 [place] % (Auto) 15.2 % (0.0-7.3) H 04/20/22 05:30 Eos % (Auto) 3.8 % (0.0-4.3) 04/20/22 05:30 Baso % (Auto) 1.2 % (0.0-1.8) 04/20/22 05:30 Lymph # (Auto) 1.1 K/mm3 (1.2-5.4) L 04/20/22 05:30 [place] # (Auto) 0.6 K/mm3 (0.0-0.8) 04/20/22 05:30 Eos # (Auto) 0.2 K/mm3 (0.0-0.4) 04/20/22 05:30 Baso # (Auto) 0.0 K/mm3 (0.0-0.1) 04/20/22 05:30 Seg Neutrophils % 53.1 % (40.0-70.0) 04/20/22 05:30 Seg Neutrophils # 2.2 K/mm3 (1.8-7.7) 04/20/22 05:30 PT 17.6 Sec. (12.2-14.9) H 05/04/22 04:26 INR 1.29 (0.87-1.13) H 05/04/22 04:26 APTT 39.4 Sec. (24.2-36.6) H 05/03/22 04:24 Heparin Anti-Xa Level < 0.10 U.I./ml (0.3-0.7) L 04/24/22 10:20 ABG pH 7.547 pH Units (7.350-7.450) H 05/04/22 05:40 ABG pCO2 32.0 mm Hg 05/04/22 05:40 ABG pO2 141.7 mm Hg (80.0-90.0) H 05/04/22 05:40 ABG HCO3 27.2 mmol/L (20.0-26.0) H 05/04/22 05:40 ABG O2 Saturation 99.0 % (95.0-99.0) 05/04/22 05:40 ABG O2 Content 21.2 (0.0-44) 05/04/22 05:40 ABG Base Excess 5.3 mmol/L (-2.0-3.0) H 05/04/22 05:40 ABG Hemoglobin 6.9 gm/dl (12.0-16.0) L 05/04/22 05:40 ABG Carboxyhemoglobin 1.3 % (0.0-5.0) 05/04/22 05:40 ABG Methemoglobin 0.5 % (0.0-1.5) 05/04/22 05:40 Oxyhemoglobin 97.1 % (95.0-99.0) 05/04/22 05:40 FiO2 60 % 05/04/22 05:40 Sodium 133 mmol/L (137-145) L 05/04/22 04:26 Potassium 3.6 mmol/L (3.6-5.0) 05/04/22 04:26 Chloride 94.8 mmol/L (98-107) L 05/04/22 04:26 Carbon Dioxide 28 mmol/L (22-30) 05/04/22 04:26 Anion Gap 14 mmol/L 05/04/22 04:26 BUN 34 mg/dL (7-17) H 05/04/22 04:26 Creatinine 3.5 mg/dL (0.6-1.2) H 05/04/22 04:26 Estimated GFR 16 ml/min 05/04/22 04:26 BUN/Creatinine Ratio 10 % 05/04/22 04:26 Glucose 175 mg/dL (65-100) H 05/04/22 04:26 POC Glucose 177 mg/dL (70-105) H 05/04/22 05:41 Lactic Acid 1.60 mmol/L (0.7-2.0) 04/19/22 07:14 Calcium 9.1 mg/dL (8.4-10.2) 05/04/22 04:26 Phosphorus 2.10 mg/dL (2.5-4.5) L 05/03/22 04:24 Magnesium 2.20 mg/dL (1.7-2.3) 05/03/22 04:24 Total Bilirubin 0.30 mg/dL (0.1-1.2) 04/20/22 05:30 AST 11 units/L (5-40) 04/20/22 05:30 ALT 7 units/L (7-56) 04/20/22 05:30 Alkaline Phosphatase 101 units/L (35-129) 04/20/22 05:30 Ammonia 25.0 umol/L (25-60) 04/19/22 04:53 Troponin T 0.415 ng/mL (0.00-0.029) H* 04/19/22 04:53 Total Protein 6.4 g/dL (6.3-8.2) 04/20/22 05:30 Albumin 2.4 g/dL (3.9-5) L 04/20/22 05:30 Albumin/Globulin Ratio 0.6 % 04/20/22 05:30 TSH 1.700 mlU/mL (0.270-4.200) 04/19/22 04:53 Free T4 0.28 ng/dL (0.76-1.46) L 04/19/22 04:53 Total Cortisol 24.4 mcg/dL () 04/27/22 04:45 Coronavirus (PCR) Negative (Negative) 05/03/22 11:30 Hepatitis A IgM Ab Non-reactive (NonReactive) 04/19/22 04:53 Hep Bs Antigen Non-reactive (Negative) 04/19/22 04:53 Hep B Core IgM Ab Non-reactive (NonReactive) 04/19/22 04:53 Hepatitis C Antibody Non-reactive (NonReactive) 04/19/22 04:53 Blood Type A POSITIVE 05/04/22 05:30 Antibody Screen Negative 05/04/22 05:30 Crossmatch See Detail 05/04/22 05:30 Microbiology: Microbiology 05/03/22 10:30 Bronchial Washings - Right Lower Lobe Respiratory Culture - Preliminary Cleary/IV: Voiding Method Incontinent Active Medications - Current Medications Current Medications: Generic Name Dose Route Start Last Admin Trade Name Freq PRN Reason Stop Dose Admin Acetaminophen 650 mg 04/22/22 20:12 05/03/22 23:41 Acetaminophen 325 Mg/10.15 Ml Oral Liqd Unit Dose PO 650 mg Q6H PRN Administration Pain MILD(1-3)/Fever >100.5/DRAKE Acetylcysteine 100 mg 05/03/22 20:00 05/03/22 20:56 Acetylcysteine 10% 100 Mg/1 Ml *For Inhalation Use* INHALATION Not Given Q12HRT CONNOR Albumin Human 25 gm 04/21/22 13:00 08/06/22 16:31 Albumin Human 25% (25 Gm/100 Ml) Inj IV 25 gm BIANCA PRN Administration Hypotension Albuterol 2.5 mg 04/21/22 08:30 04/24/22 16:51 Albuterol 2.5 Mg/3 Ml Nebu IH 2.5 mg Q3HRT PRN Administration Shortness Of Breath Albuterol/Ipratropium 1 ampul 04/21/22 14:00 05/03/22 20:58 Ipratropium/Albuterol Sulfate 3 Ml Ampul.Neb IH 1 ampul TIDRT CONNOR Administration Bisacodyl 10 mg 05/04/22 10:00 Bisacodyl 10 Mg Rect Supp OK 05/06/22 09:59 QDAY CONNOR Docusate Sodium 100 mg 05/01/22 22:00 05/03/22 21:13 Docusate Sodium 100 Mg/10 Ml Oral Liqd FEEDTUBE 100 mg BID CONNOR Administration Epoetin Lb-epbx 20,000 unit 04/23/22 12:00 05/02/22 12:30 Epoetin Lb-Epbx 20,000 Unit/1 Ml Vial IV 20,000 unit BIANCA PRN Administration HEMODIALYSIS Fentanyl 50 mcg 05/03/22 10:29 Fentanyl 100 Mcg/2 Ml Inj IV Q10MIN PRN ANALGESIA Sodium Chloride 100 mls @ 999 mls/hr 04/22/22 09:12 Nacl 0.9% IV BIANCA PRN Hypotension Fentanyl Citrate 2,000 mcg in 100 mls @ 2.722 mls/hr 05/03/22 11:00 Fentanyl Drip Premix IV TITR CONNOR Protocol 1 MCG/KG/HR NORepinephrine/NS 8 MG-250 ML 8 mg in 250 mls @ 3.75 mls/hr 05/03/22 13:15 05/04/22 03:54 Norepinephrine/Ns 8 Mg-250 Ml (Double Conc) IV 18 mcg/min TITRATE CONNOR 33.75 mls/hr Titration Protocol 2 MCG/MIN Vasopressin 20 unit/ Sodium 101 mls @ 9.09 mls/hr 05/04/22 00:30 05/04/22 00:39 Chloride IV 0.03 units/min TITR CONNOR 9.09 mls/hr Administration 0.03 UNITS/MIN Lansoprazole 30 mg 04/23/22 10:00 05/03/22 10:15 Lansoprazole 30 Mg Solutab FEEDTUBE 30 mg QDAY CONNOR Administration Lorazepam 0.5 mg 04/25/22 09:59 Lorazepam 0.5 Mg Tab FEEDTUBE QDAY PRN Anxiety Memantine 5 mg 04/25/22 10:00 05/03/22 21:14 Memantine 5 Mg Tab FEEDTUBE 5 mg BID CONNOR Administration Metoclopramide HCl 5 mg 04/19/22 09:55 Metoclopramide 10 Mg/2 Ml Inj IV Q6H PRN Nausea And Vomiting Midodrine 20 mg 04/26/22 14:00 05/03/22 21:14 Midodrine 10 Mg Tab FEEDTUBE 20 mg TID CONNOR Administration Naloxone HCl 0.1 mg 04/19/22 09:55 Naloxone 0.4 Mg/1 Ml Inj IV Q2MIN PRN Res Rate </= 8 or 02 SAT < 92% Oxymetazoline HCl 2 spray 05/01/22 15:05 Oxymetazoline 0.05% Nasal [place] NS 05/04/22 15:04 Q12H PRN Nasal Congestion Polyethylene Glycol 17 gm 05/03/22 10:00 05/03/22 10:14 Polyethylene Glycol 3350 17 Gm Powder FEEDTUBE Not Given QDAY CONNOR Risperidone 0.5 mg 04/25/22 11:00 05/03/22 21:13 Risperidone 1 Mg Tab FEEDTUBE 0.5 mg BID CONNOR Administration Scopolamine 1 each 05/02/22 10:00 05/02/22 09:50 Scopolamine Transdermal Patch 72 Hr TD 1 each Q3D CONNOR Administration Senna 17.2 mg 04/23/22 10:00 05/03/22 21:13 Sennosides 8.6 Mg Tab FEEDTUBE 17.2 mg BID CONNOR Administration Sodium Chloride 10 ml 04/19/22 12:00 05/03/22 21:20 Sodium Chloride 0.9% 10 Ml Flush Syringe IV 10 ml BID CONNOR Administration Sodium Chloride 10 ml 04/19/22 11:19 Sodium Chloride 0.9% 10 Ml Flush Syringe IV PRN PRN LINE FLUSH Valproic Acid 750 mg 04/22/22 22:00 05/03/22 21:13 Valproic Acid 250 Mg/5 Ml Oral Liqd FEEDTUBE 750 mg BID CONNOR Administration Nutrition/Malnutrition Assess - Dietary Evaluation Nutrition/Malnutrition Findings: Nutrition Notes Start: 04/19/22 17:39 Freq: Status: Active Protocol: Document 05/03/22 11:10 MIRIAN (Rec: 05/03/22 11:27 MIRIAN [id number]) Nutrition Notes Initial or Follow up Brief Note Current Diagnosis CKD (stage V CKD),Hypertension ,Respiratory Failure, Malnutrition Other Pertinent Diagnosis Metabolic Encephalopathy, ESRD +HD, Anemia, NSTEMI II, SIRS, Dysphagia... Current Diet NPO (since 05/03 00:01). Height 5 ft 2 in Weight 54.43 kg [place] Body Weight (kg) 50.00 BMI 21.9 Weight change and time frame No body weight change reported in 2 weeks. Weight Status Appropriate Subjective/Other Information RD consult for routine F/U on TF tolerance/continuation assessment. Pt continues on NPO. Pt has been intubated few minutes ago, PEG placement has been deferred for 05/04 if Pt remains stable on the vent, according to Gastroenterology notes. TF will be resumed today and Pt will be NPO from 05/04 00: 01, according to Gastroenterology notes. Percent of energy/protein needs met: Pt temporarily on NPO. Prescribed TF-Nepro w/ CARBSTEADY @ 30 ml/hr provides for energy/protein needs (1, 269 Kcal/58 g) during LOS, 102 % Kcal; 89% AA. #1 Nutrition Diagnosis Swallowing difficulty Diagnosis Progress(for reassessment Continues documentation) Is patient on ventilator? No Is Patient Ambulatory and/or Out of Bed No REE-([facility]-confined to bed) [phone] Calculation Used for Recommendations [facility] Additional Notes Protein: >1.2 g/Kg ABW; >65 g/ day. Fluids: 1-1.5 L/day, or as per MD. Nutrition Intervention Nutrition Support: Resume Nepro w/CARBSTEADY @ 30 ml/hr. Flush: 130 ml water Q 4 hr, or as per MD. Kcal 1,269 Protein (gm) 58 Carbohydrates (gm) 116 Fat (gm) 58 Fluid (mL) 523 Fiber (gm) 9 % RDI: 102% Kcal; 89% AA. Goal #1 Provide at least 75% of energy /protein needs through Enteral Feeding during LOS. Follow-Up By: 05/05/22 Additional Comments Continue monitoring TF tolerance, PEG-tube placement, and BM.
[2022-05-03 15:41] LABS: ABG HCO3 26.4 mmol/L (20.0-26.0); ABG Methemoglobin 0.3 % (0.0-1.5); ABG PH 7.577 pH Units (7.350-7.450); ABG PO2 140.4 mm Hg (80.0-90.0)
--- NOTE | 2022-05-03 19:31 | Progress Note ---
Assessment and Plan Impression: * End stage renal disease * Acute hypoxic respiratory failure * AMS * SVT s/p cardioversion * SIRS * NSTEMI * Hypotension * Anemia secondary to ESRD * Secondary hyperparathyroidism * IJ thrombus Plan: * Will continue hemodialysis // provided patient is hemodynamically stable * Minimal UF removal given soft BP- adjust salt baths and temp prn * Dose medications for renal function * cardiology/pulmonary notes reviewed, appreciated * appreciate vascular regarding AVG * continue midodrine given soft BP * keep MAP>65, vasopressors prn * Avoid potential nephrotoxins * Epogen TIW prn * Renal/HD diet * Continue binders prn Subjective Date of service: 05/03/22 Principal diagnosis: Neurogenic Dysphagia Interval history: Seen in ICU. Now intubated. Objective - Exam Narrative Exam: General: No acute distress Head: NC/AT Eyes: normal appearance Neck: Normal appearance Chest: Intubated CV: Regular rate and rhythm, right arm dialysis access Abdomen: Soft, normal bowel sounds, nontender, nondistended Neuro: alert, oriented, no focal deficits - Vital Signs Vital signs: Vital Signs - 12hr 05/03/22 05/03/22 05/03/22 07:30 07:45 08:00 Temperature 99.8 F H Pulse Rate 117 H 115 H 110 H Pulse Rate [ Anterior Bilateral Throughout] Pulse Rate [ 115 H From Monitor] Respiratory 18 16 30 H Rate Respiratory Rate [Anterior Bilateral Throughout] Respiratory Rate [ generalized] Blood Pressure 146/75 131/72 119/53 O2 Sat by Pulse 87 87 96 Oximetry 05/03/22 05/03/22 05/03/22 08:15 08:20 08:30 Temperature Pulse Rate 109 H 110 H Pulse Rate [ 110 H Anterior Bilateral Throughout] Pulse Rate [ From Monitor] Respiratory 32 H 35 H Rate Respiratory 21 Rate [Anterior Bilateral Throughout] Respiratory Rate [ generalized] Blood Pressure 110/49 106/49 O2 Sat by Pulse 95 97 Oximetry 05/03/22 05/03/22 05/03/22 08:45 09:00 09:15 Temperature Pulse Rate 111 H 106 H 108 H Pulse Rate [ Anterior Bilateral Throughout] Pulse Rate [ From Monitor] Respiratory 25 H 32 H 30 H Rate Respiratory Rate [Anterior Bilateral Throughout] Respiratory Rate [ generalized] Blood Pressure 128/63 98/43 120/61 O2 Sat by Pulse 95 97 94 Oximetry 05/03/22 05/03/2205/03/22 09:30 09:38 09:45 Temperature Pulse Rate 107 H 106 H Pulse Rate [ Anterior Bilateral Throughout] Pulse Rate [ From Monitor] Respiratory 26 H 35 H Rate Respiratory Rate [Anterior Bilateral Throughout] Respiratory 22 Rate [ generalized] Blood Pressure 129/67 119/52 O2 Sat by Pulse 93 95 Oximetry 05/03/22 05/03/22 05/03/22 10:00 10:15 10:30 Temperature Pulse Rate 89 110 H 118 H Pulse Rate [ Anterior Bilateral Throughout] Pulse Rate [ From Monitor] Respiratory 28 H 12 20 Rate Respiratory Rate [Anterior Bilateral Throughout] Respiratory Rate [ generalized] Blood Pressure 68/25 186/79 119/55 O2 Sat by Pulse 100 100 100 Oximetry 05/03/22 05/03/22 05/03/22 10:45 11:00 11:15 Temperature Pulse Rate 117 H 116 H 115 H Pulse Rate [ Anterior Bilateral Throughout] Pulse Rate [ From Monitor] Respiratory 20 20 20 Rate Respiratory Rate [Anterior Bilateral Throughout] Respiratory Rate [ generalized] Blood Pressure 141/78 124/58 115/61 O2 Sat by Pulse 100 100 100 Oximetry 05/03/22 05/03/22 05/03/22 11:30 11:45 12:00 Temperature 99.6 F Pulse Rate 115 H 114 H 115 H Pulse Rate [ Anterior Bilateral Throughout] Pulse Rate [ 114 H From Monitor] Respiratory 19 20 20 Rate Respiratory Rate [Anterior Bilateral Throughout] Respiratory Rate [ generalized] Blood Pressure 113/59 112/59 88/35 O2 Sat by Pulse 100 100 100 Oximetry 05/03/22 05/03/22 05/03/22 12:15 12:30 12:38 Temperature Pulse Rate 112 H 112 H Pulse Rate [ Anterior Bilateral Throughout] Pulse Rate [ From Monitor] Respiratory 20 20 Rate Respiratory Rate [Anterior Bilateral Throughout] Respiratory Rate [ generalized] Blood Pressure 85/36 87/35 O2 Sat by Pulse 100 100 100 Oximetry 05/03/22 05/03/22 05/03/22 12:45 13:00 13:15 Temperature Pulse Rate 114 H 114 H 116 H Pulse Rate [ Anterior Bilateral Throughout] Pulse Rate [ From Monitor] Respiratory 20 20 20 Rate Respiratory Rate [Anterior Bilateral Throughout] Respiratory Rate [ generalized] Blood Pressure 77/44 96/48 105/53 O2 Sat by Pulse 100 100 100 Oximetry 05/03/22 05/03/22 05/03/22 13:30 13:45 14:00 Temperature Pulse Rate 116 H 115 H 115 H Pulse Rate [ Anterior Bilateral Throughout] Pulse Rate [ From Monitor] Respiratory 19 21 20 Rate Respiratory Rate [Anterior Bilateral Throughout] Respiratory Rate [ generalized] Blood Pressure 104/53 89/38 98/40 O2 Sat by Pulse 100 100 100 Oximetry 05/03/22 05/03/22 05/03/22 14:15 14:30 14:45 Temperature Pulse Rate 112 H 111 H 111 H Pulse Rate [ Anterior Bilateral Throughout] Pulse Rate [ From Monitor] Respiratory 20 20 20 Rate Respiratory Rate [Anterior Bilateral Throughout] Respiratory Rate [ generalized] Blood Pressure 93/51 92/53 90/45 O2 Sat by Pulse 100 100 100 Oximetry 05/03/22 05/03/22 05/03/22 15:00 15:16 15:30 Temperature Pulse Rate 112 H 115 H 114 H Pulse Rate [ Anterior Bilateral Throughout] Pulse Rate [ From Monitor] Respiratory 20 20 20 Rate Respiratory Rate [Anterior Bilateral Throughout] Respiratory Rate [ generalized] Blood Pressure 100/45 175/139 92/42 O2 Sat by Pulse 100 100 100 Oximetry 05/03/22 05/03/22 05/03/22 15:45 16:00 16:12 Temperature 100.4 F H Pulse Rate 115 H 115 H Pulse Rate [ 117 H Anterior Bilateral Throughout] Pulse Rate [ 117 H From Monitor] Respiratory 20 20 Rate Respiratory 14 Rate [Anterior Bilateral Throughout] Respiratory Rate [ generalized] Blood Pressure 113/52 121/42 O2 Sat by Pulse 100 100 100 Oximetry 05/03/22 05/03/22 05/03/22 16:15 16:30 16:45 Temperature Pulse Rate 115 H 119 H 119 H Pulse Rate [ Anterior Bilateral Throughout] Pulse Rate [ From Monitor] Respiratory 14 14 14 Rate Respiratory Rate [Anterior Bilateral Throughout] Respiratory Rate [ generalized] Blood Pressure 117/54 95/41 92/48 O2 Sat by Pulse 100 100 98 Oximetry 05/03/22 05/03/22 17:00 17:15 Temperature Pulse Rate 118 H 116 H Pulse Rate [ Anterior Bilateral Throughout] Pulse Rate [ From Monitor] Respiratory 16 14 Rate Respiratory Rate [Anterior Bilateral Throughout] Respiratory Rate [ generalized] Blood Pressure 92/48 110/47 O2 Sat by Pulse 100 100 Oximetry - Lab 05/03/22 04:24 05/03/22 04:24 Most recent lab results ABG pH 7.577 pH Units (7.350-7.450) H 05/03/22 15:17 ABG pCO2 29.0 mm Hg 05/03/22 15:17 ABG pO2 140.4 mm Hg (80.0-90.0) H 05/03/22 15:17 ABG HCO3 26.4 mmol/L (20.0-26.0) H 05/03/22 15:17 ABG O2 Saturation 99.0 % (95.0-99.0) 05/03/22 15:17 Calcium 9.3 mg/dL (8.4-10.2) 05/03/22 04:24 Phosphorus 2.10 mg/dL (2.5-4.5) L 05/03/22 04:24 Magnesium 2.20 mg/dL (1.7-2.3) 05/03/22 04:24 Medications & Allergies - Medications Allergies/Adverse Reactions: Allergies buspirone [From BuSpar] Allergy (Verified 04/18/22 12:22) Unknown Penicillins Allergy (Verified 04/18/22 12:22) Rash corn Adverse Reaction (Verified 04/18/22 12:22) Unknown Home Medications: Home Medications Medication Instructions Recorded Confirmed Last Taken Type Sevelamer Carbonate [Renvela] 0.8 gram PO TIDWM 09/02/20 02/02/22 05/31/21 History HYDROcodone/APAP 5-325 [Clarence 1 each PO Q4HR PRN #30 tablet 05/18/21 02/02/22 U nknown Rx 5-325 mg TAB] ALBUTEROL NEB's [Proventil 0.083% 2.5 mg IH Q3HRT PRN #1 nebu 03/03/22 Unknown Rx NEBS] Clopidogrel [Plavix] 75 mg PO QDAY #90 tablet 03/03/22 Unknown Rx Divalproex [Sarina Serrano] 750 mg PO BID #60 tablet 03/03/22 Unknown Rx LORazepam [Ativan] 1 mg PO DAILY #30 tab 03/03/22 Unknown Rx Memantine Xr [Namenda Xr] 5 mg PO DAILY #30 cap 03/03/22 Unknown Rx Midodrine [Proamatine] 10 mg PO TID #90 tab 03/03/22 Unknown Rx Pantoprazole [Protonix TAB] 40 mg PO DAILY #30 tab 03/03/22 Unknown Rx QUEtiapine [SEROquel] 400 mg PO BID #60 tab 03/03/22 Unknown Rx risperiDONE [RisperDAL] 0.5 mg PO BID #60 tab 03/03/22 Unknown Rx Active Medications: Generic Name Dose Route Start Last Admin Trade Name Freq PRN Reason Stop Dose Admin Acetaminophen 650 mg 04/22/22 20:12 04/29/22 09:43 Acetaminophen 325 Mg/10.15 Ml Oral Liqd Unit Dose PO 650 mg Q6H PRN Administration Pain MILD(1-3)/Fever >100.5/DRAKE Acetylcysteine 100 mg 05/03/22 20:00 Acetylcysteine 10% 100 Mg/1 Ml *For Inhalation Use* INHALATION Q12HRT CONNOR Albumin Human 25 gm 04/21/22 13:00 04/22/22 16:31 Albumin Human 25% (25 Gm/100 Ml) Inj IV 25 gm BIANCA PRN Administration Hypotension Albuterol 2.5 mg 04/21/22 08:30 04/24/22 16:51 Albuterol 2.5 Mg/3 Ml Nebu IH 2.5 mg Q3HRT PRN Administration Shortness Of Breath Albuterol/Ipratropium 1 ampul 04/21/22 14:00 05/03/22 16:12 Ipratropium/Albuterol Sulfate 3 Ml Ampul.Neb IH 1 ampul TIDRT CONNOR Administration Bisacodyl 10 mg 05/03/22 15:00 05/03/22 15:02 Bisacodyl 10 Mg Rect Supp MD 05/03/22 23:59 10 mg ONCE CONNOR Administration Bisacodyl 10 mg 05/04/22 10:00 Bisacodyl 10 Mg Rect Supp MD 05/06/22 09:59 QDAY CONNOR Docusate Sodium 100 mg 05/01/22 22:00 05/03/22 10:13 Docusate Sodium 100 Mg/10 Ml Oral Liqd FEEDTUBE Not Given BID CONNOR Epoetin Lb-epbx 20,000 unit 04/23/22 12:00 05/02/22 12:30 Epoetin Lb-Epbx 20,000 Unit/1 Ml Vial IV 20,000 unit BIANCA PRN Administration HEMODIALYSIS Fentanyl 50 mcg 05/03/22 10:29 Fentanyl 100 Mcg/2 Ml Inj IV Q10MIN PRN ANALGESIA Sodium Chloride 100 mls @ 999 mls/hr 04/22/22 09:12 Nacl 0.9% IV BIANCA PRN Hypotension Fentanyl Citrate 2,000 mcg in 100 mls @ 2.722 mls/hr 05/03/22 11:00 Fentanyl Drip Premix IV TITR CONNOR Protocol 1 MCG/KG/HR NORepinephrine/NS 8 MG-250 ML 8 mg in 250 mls @ 3.75 mls/hr 05/03/22 13:15 05/03/22 17:00 Norepinephrine/Ns 8 Mg-250 Ml (Double Conc) IV 10 mcg/min TITRATE CONNOR 18.75 mls/hr Titration Protocol 2 MCG/MIN Lansoprazole 30 mg 04/23/22 10:00 05/03/22 10:15 Lansoprazole 30 Mg Solutab FEEDTUBE 30 mg QDAY CONNOR Administration Lorazepam 0.5 mg 04/25/22 09:59 Lorazepam 0.5 Mg Tab FEEDTUBE QDAY PRN Anxiety Memantine 5 mg 04/25/22 10:00 05/03/22 10:13 Memantine 5 Mg Tab FEEDTUBE 5 mg BID CONNOR Administration Metoclopramide HCl 5 mg 04/19/22 09:55 Metoclopramide 10 Mg/2 Ml Inj IV Q6H PRN Nausea And Vomiting Midodrine 20 mg 04/26/22 14:00 05/03/22 13:21 Midodrine 10 Mg Tab FEEDTUBE 20 mg TID CONNOR Administration Naloxone HCl 0.1 mg 04/19/22 09:55 Naloxone 0.4 Mg/1 Ml Inj IV Q2MIN PRN Res Rate </= 8 or 02 SAT < 92% Oxymetazoline HCl 2 spray 05/01/22 15:05 Oxymetazoline 0.05% Nasal [place] NS 05/04/22 15:04 Q12H PRN Nasal Congestion Polyethylene Glycol 17 gm 05/03/22 10:00 05/03/22 10:14 Polyethylene Glycol 3350 17 Gm Powder FEEDTUBE Not Given QDAY CONNOR Risperidone 0.5 mg 04/25/22 11:00 05/03/22 10:12 Risperidone 1 Mg Tab FEEDTUBE 0.5 mg BID CONNOR Administration Scopolamine 1 each 05/02/22 10:00 05/02/22 09:50 Scopolamine Transdermal Patch 72 Hr TD 1 each Q3D CONNOR Administration Senna 17.2 mg 04/23/22 10:00 05/03/22 10:14 Sennosides 8.6 Mg Tab FEEDTUBE Not Given BID CONNOR Sodium Chloride 10 ml 04/19/22 12:00 05/03/22 10:13 Sodium Chloride 0.9% 10 Ml Flush Syringe IV 10 ml BID CONNOR Administration Sodium Chloride 10 ml 04/19/22 11:19 Sodium Chloride 0.9% 10 Ml Flush Syringe IV PRN PRN LINE FLUSH Valproic Acid 750 mg 04/22/22 22:00 05/03/22 10:20 Valproic Acid 250 Mg/5 Ml Oral Liqd FEEDTUBE 750 mg BID CONNOR Administration
[2022-05-03] MEDS: ACETYLCYSTEINE 10% 100 MG/1 ML *FOR INHALATION USE INHALATION SCH (20:56)
[2022-05-03] MEDS: ACETAMINOPHEN 325 MG/10.15 ML ORAL LIQD UNIT DOSE PO PRN (23:41)
[2022-05-04] MEDS: VASOPRESSIN 20 UNIT in SODIUM CHLORIDE 0.9% 100 ML IV SCH ×3 (00:39→21:07)
[2022-05-04] MEDS: NORepinephrine/NS 8 MG-250 ML 8 MG/250 ML INFUS..BTL IV SCH ×2 (03:32→13:15)
[2022-05-04 05:07] LABS: Hematocrit 21.4 % (30.3-42.9); Hemoglobin 6.9 gm/dl (10.1-14.3); Mean Corpuscular HGB Conc 32 % (30-34); Mean Corpuscular Volume 90 fl (79-97); Platelet Count 197 K/mm3 (140-440); Red Blood Count 2.39 M/mm3 (3.65-5.03); Red Cell Distribution Width 15.8 % (13.2-15.2)
[2022-05-04 05:13] LABS: INR 1.29 (0.87-1.13)
[2022-05-04 05:36] LABS: Calcium 9.1 mg/dL (8.4-10.2)
[2022-05-04 05:59] LABS: ABG Base Excess 5.3 mmol/L (-2.0-3.0); ABG HCO3 27.2 mmol/L (20.0-26.0); ABG PH 7.547 pH Units (7.350-7.450); ABG PO2 141.7 mm Hg (80.0-90.0)
[2022-05-04] MEDS ORDERED: SODIUM CHLORIDE 0.9% 500 ML 500 ML IV ONE (06:07)
[2022-05-04 06:08] LABS: ABG Methemoglobin 0.5 % (0.0-1.5)
[2022-05-04] MEDS ORDERED: propofoL 200 MG/20 ML VIAL IV ONE (07:37)
[2022-05-04] MEDS ORDERED: LIDOCAINE MPF (2%) 20 MG/1 ML VIAL 5 ML ONE (07:37)
[2022-05-04] MEDS ORDERED: ceFAZolin/Water 2 GM/20 ML 2 GM/20 ML SYRINGE IV ONE (07:37)
[2022-05-04] MEDS: ACETYLCYSTEINE 10% 100 MG/1 ML *FOR INHALATION USE INHALATION SCH ×2 (07:41→19:53)
[2022-05-04] MEDS: IPRATROPIUM/ALBUTEROL SULFATE 3 ML AMPUL.NEB IH SCH ×3 (07:42→19:53)
[2022-05-04] MEDS: MIDODRINE 10 MG TAB FEEDTUBE SCH ×3 (08:00→21:09)
--- NOTE | 2022-05-04 08:37 | Anesthesia Day of Surgery ---
Anesthesia Day of Surgery - Day of Surgery Patient Examined: Yes Patient H&P Reviewed: Yes Patient is NPO: Yes
--- NOTE | 2022-05-04 08:37 | Post Operative Note ---
Pre-op diagnosis: Neurogenic Dysphagia Post-op diagnosis: other (Same, s/p PEG) Findings: 1. Normal UGI -PEG placed 3 cm below LSB - Bumper at 3.5cm Procedure: EGD with PEG placement Anesthesia: MAC Surgeon: ESAU SMITH Estimated blood loss: minimal Pathology: none Specimen disposition: other (N/A) Condition: stable Disposition: ICU (Recs: 1. Patient may use PEG in 4 hours for feeds/meds. 2. Will loosen in 24 hours. 3. OK to resume all blood thinners including DVT PPY or daily ASA.)
--- NOTE | 2022-05-04 09:21 | XRay Report ---
CHEST 1 VIEW 05/04/2022 8:41 AM INDICATION / CLINICAL INFORMATION: follow up respiratory failure. COMPARISON: One view of the chest from 05/03/2022. FINDINGS: SUPPORT DEVICES: Unchanged positioning of the ET tube. HEART / MEDIASTINUM: Stable. LUNGS / PLEURA: Left pleural-parenchymal opacities are slightly improved. Right pleural-parenchymal o pacities have worsened. No pneumothorax. ADDITIONAL FINDINGS: Stents are again seen along the left shoulder/axilla. IMPRESSION: Evolving bilateral pleural parenchymal opacities as above without other significant interval changes. Signer Name: Brandon Bird MD Signed: 05/04/2022 9:16 AM Workstation Name: [id number]
--- NOTE | 2022-05-04 09:36 | Operative Report ---
DATE OF SURGERY: 05/04/2022 PROCEDURE PERFORMED: Esophagogastroduodenoscopy with percutaneous gastrostomy tube insertion. PREOPERATIVE DIAGNOSIS: Neurogenic dysphagia. POSTOPERATIVE DIAGNOSES: Neurogenic dysphagia. ENDOSCOPIST: Abdulaziz Bravo M.D. INSTRUMENT: The Olympus video endoscope. MEDICATIONS: MAC anesthesia by anesthesia services. COMPLICATIONS: No apparent complications. ESTIMATED BLOOD LOSS: Minimal. SPECIMENS: None. IMPLANTS: 20-British pull-type Cook gastrostomy tube placed in the stomach during this procedure. ASSISTANTS: None. CONDITION AT COMPLETION: Stable. TECHNIQUE: The patient's son was informed of the risks and benefits of the procedure. He gave phone consent to proceed. The patient was unable to provide consent due to recent intubation as well as underlying neurologic disease. After consent was obtained, the patient was placed in the supine position. The above sedative medications were given. Her vital signs remained stable throughout the procedure. The instrument was advanced from the mouth to the second portion of the duodenum under direct visualization and was slowly withdrawn into the stomach. There was a good red light reflex and the indentation in an area 3 cm below the left sternal border. This area was sterilely draped and prepped. Local anesthesia was provided by dilute lidocaine, there was no aspiration of air bubbles in the hub of the syringe until entry of the needle into the lumen of the stomach. We then placed a 20-British pull-type gastrostomy tube over a guidewire in the usual fashion. The bumper was fixed at 3.5 cm and the procedure was terminated. FINDINGS: 1. Normal duodenum, stomach, and esophagus. A. A 20-British gastrostomy tube placed 3 cm below the left sternal border. B. The bumper was fixed at 3.5 cm. RECOMMENDATIONS: 1. The patient may use the gastrostomy tube in 4 hours for feedings and medications. 2. We will loosen the bumper in 24 hours. 3. Okay to resume all blood thinners including DVT prophylaxis or daily aspirin. TID: [id number] RECEIPT: [id number] CHRISTOPHER/SHAUN
[2022-05-04] MEDS ORDERED: ceFAZolin/Water 2 GM/20 ML 2 GM/20 ML SYRINGE IV SCH (10:00)
--- NOTE | 2022-05-04 11:04 | Post Anesthesia Evaluation ---
- Post Anesthesia Evaluation Patient Participated: No Airway Patent: Yes Stable Respiratory Function: Yes Nausea/Vomiting: No Temp > 96.8F: Yes Pain Manageable: Yes Adequeate Hydration: Yes Anesthesia Complications: No Patient on Ventilator: Yes
--- NOTE | 2022-05-04 11:16 | Progress Note ---
<COLLETTE HANNA - Last Filed: 05/04/22 18:29> Assessment and Plan Assessment and plan: This is a 66-year-old female with known past medical history of HTN, GERD, Seizure disorder, vascular dementia, ESRD on HD(TTS), OA, bipolar disorder, schizophrenia, anxiety disorder, and limited mobility admitted for Acute hypxic respiratory, hypotension, and SVT s/p X2 doses adenosine and cardioversion. Hospital Course to Date: 04/20: Patient went into Afib with RVR overnight, now on amiodarone gtt per yan cuello. Patient remains in AFib with RVR this am, HR in the 120-140s. BP marginal on Levophed gtt, currently not a candidate for BB. Midodrine increased to 15mg TID. 2D Echo pending. On heparin gtt per protocol. No HD today per nephro due to hypotension and tachycardia. 04/21: Converted to SR this am, remains on Amiodarone and heparin. Awaiting cardio final recommendations. Still on Levophed gtt for low BP, given patient history of chronic hypotension, Wean pressor for MAP goal of 60s. Patient is pocketing foods, currently NPO, awaiting speech eval and treat. 04/22: Patient passed speech swallow eval yesterday, however, patient is refusing PO intakes including meds. Will insert DHT for nutrition and meds administration. Patient remains in SR this am, amiodaron gtt transitioned to PO per cardio. Patient remains on heparin and Levophed gtt. Patient has not received PO midrodrine for 24hrs, resume meds once DHT is inserted. Keep femoral CVC for another 24hrs, anticipating will be able to wean off pressor once patient receive midodrine. Will reassess in the morning. No HD overnight, unable to cannulate AVF, plan to attempt again today per Nephro. Possible IR/Vascular surgery consult if unsuccessful again today. 04/23: Mentation a lot better this am. DHT was inserted, meds resumed and TF initiated. Levophed gtt increased overnight due to worsen hypotension, suspected it is due to sedative agents. Seroquel decreased to 200mg BID and scheduled ativan switched to PRN. Continue midodrine TID and wean off levophed gtt for MAP goal of 60. Patient tolerated HD yesterday, continue iHD per Nephrology. CCM recommendations noted, Chest US ordered for pleural effusion. 04/24: RN instructed to wean Levophed off, goal MAP of 60. Heparin drip stopped due to decreasing hemoglobin. 04/25: had cleared the patient for pured diet which will be started today, hemodialysis planned for today, patient was to be anemic and will receive 1 unit PRBC with HD. We will increase midodrine to 20 mg 3 times daily if patient becomes hypotensive during dialysis. Per CCM. Decrease in seroqoul but will increase if needed 04/26: Patient agreeable to PEG, GI consulted for placement. Femoral line removed 04/27: No acute events reported overnight, patient has been cardiac cleared for PEG tube placement. Possible PEG in the a.m. This afternoon attempted to place IJ CVL which was unsuccessful and Dr. Mcguire ultimately placed femoral CVL for the initiation of Levophed. HD scheduled for today. 04/28: Patient initially started on Levophed yesterday and she received a femoral CVL. 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 Vascular surgery was consulted. Patient also noted to be anemic and received 1 unit PRBC today. 04/29: Possible hemodialysis today, patient was able to be weaned off of Levophed today. Hemoglobin responded well to 1 unit PRBC. Awaiting trach/PEG placement. Patient will not need to be started on heparin drip per vascular surgery. No acute events reported overnight. 04/30: HD yesterday without removal of fluids, patient needs NT suctioning. Updated son today. 05/01: Patient with increase mucous production and is unable to fully clear her airway, Rhonchi auscultated throughout her lungs this am. SPO2 at 90 to 94% on 3L NC. D/W CCM, patient is high risk for aspiration will placed patient on heated HF at 40L for now instead of Bipap. Nasal bleeding also noted, mostly due to NT suctioning. Refrain from NT suctioning for now due to bleeding, only oral suctioning. PO seroquel held this amP atient is AAO, appropriate, and following commands. Levophed gtt weaned off, patient remains hemodynamically stable. Will discuss Nephro for possible fluid removal tonight or early tomorrow. Very low threshold for intubation. Patient's condition and plan of care, including possible intubation, thoroughly discussed with patient's son-Raymundo Randolph at . Patient's son verbalized understanding of the info provided and agreed with intubation if necessary. 05/02: Remains on HHFL at 40% and 40L, mentation is unchanged. HD at the bedside, plan for possible UF with fluid removal today. Continue O2 supplementation and wean as tolerated, for SPO2 above 92%. Repeat CXR in the am. Patient vital signs remains stable, still off pressors. Plan for possible PEG-tube placement by GI tomorrow, NPO after MN. Possible fistulogram for RIJ thrombus on or sunday per Vascular Surgery. 05/03: Complete white-out of right side from this am CXR, probable mucus plug. S/p intubation and bronch at the bedside by [facility]. Patient remains sedated and required short duration of Levophed gtt during the procedure. Pressor was wean off, VSS. Plan for CPT and mucomyst Q12hrs. Repeat CXR in the am. PEG-Tube placement postpone for possibly tomorrow if patient remains stable. Possible fistulogram for RIJ thrombus on or Sunday per Vascular Surgery. 05/04: Remains on the vent, easily arousable. High fevers overnight with spike in leukocytosis, now on 2 pressors. [facility] d/w ID, recommendations to repeat blood cultures and empiric IV abx- Cefepine and Vanco. low H&H this am, no s/s of any active bleeding, 1units of PRBCs during iHD today. S/p PEG-tube placement at this bedside this am by GI, no complications noted. Resume TF once clear by GI. Assessement and Plan #C/F Sepsis #Atrial Fibrillation with RVR #Supraventricular Tachycardia s/p Cardioversion #Acute on Chronic Hypotension #NSTEMI Type 2 - Presented with AMS, Tachycardia, and hypotension requiring pressors - was found in SVT in the ED s/p unsuccessful X2 doses of adenosine then cardioversion. - Patient initially converted to SR post cardioversion, then went into afib RVR in the ICU - Elevated troponin most likely related to ESRD - Cardiology consulted, appreciate recommendations - s/p Amio gtt now on PO per Cardio. Patient remains in SR - On 2 pressors this am, with fevers and leukocytosis - Continue Midodrine TID - Continue blood pressure monitor per protocol - Titrate pressors for MAP goal of 60 - Not a candidate for MARGOTH, ARB, and BB due to hypotension - 2D Echo EF 60-65% - on Lipitor and Plavix - CCM also following #Acute Hypoxic Respiratory Failure #Moderate Pleural Effusion - with worsening respiratory status this am - Complete white-out of right side from this am CXR, probable mucus plug - 05/01 s/p Intubation and bronch at the bedside by CCM - Vent setting: PRVC-100%,10,20,450 - This am ABG noted - CCM consulted, appreciate recommendations - Plan for CPT at least 4 to 6 times a day, and Mucomyst q12hrs - VAP bundle addressed - Aspiration precaution HOB above 30 - Daily SBT and SAT trials as tolerated - Daily ABG and CXR - Continue SPO2 monitoring for SPO2 goal above 92% #Acute Metabolic Encephalopathy #H/o Vascular Dementia #Severe Anxiety #Bipolar Disorder & Schizophrenia - Presented with AMS, probably due to above - s/p intubation, arousable, not on any sedations - Now continue sedation gtt warranted at this time - Continue home meds - PRN Analgesia for pain control/vent synchrony - Maintenance of sleep-wake cycle - Mental Health/Psych on consult #End-Stage Renal Disease(ESRD) on HD - Nephrology on consult, appreciated recommendations - Continue iHD per Nephro - Strict intake and output - Avoid nephrotoxic medications; Renally dose medications - Monitor and replace electrolytes as needed #Anemia of Chronic Disease #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 Plan for possible vascular intervention sometimes this week - AC on hold due to worsen anemia #H/o Seizure Disorder - Resume home meds #Dysphagia #Moderate Protein Caloric Malnutrition - Failed speech swallow- they recommended PEG-Tube - GI consulted, appreciate recommendation - 05/04 s/p PEG-tube placement at this bedside this am by GI - Resume TF once cleared by GI - Nutrition consulted #GI/DVT Prophylaxis - PPI- Protonix - SCDs to bilateral lower extremities while in bed #Advance Care Planning - Disease education data, care plan, diagnoses, and prognosis were discussed with patient's son at the bedside. Patient is a FULL code. Patient acknowledged understanding and agreed with current care plan. The high probability of a clinically significant, sudden or life threatening deterioration of the [multiple] system(s) required my full and direct attention, intervention and personal management. The aggregate critical care time was [60] minutes. This time is in addition to time spent performing reported procedures but includes the following: [x] Data Review and interpretation [x] Patient assessment and monitoring of vital signs [x] Documentation [x] Medication orders and management Disposition Plan: ICU Total Time Spent with Patient (Minutes): 60 History Interval history: Patient seen and examined at the bedside. Remains on the vent, lethargic but easily arousable, not on any sedation. Febrile overnight and now on 2 pressors. S/p PEG-TUbe placement this morning. Hospitalist Physical - Physical exam Narrative exam: General appearance: Present: No acute distress, well-nourished, obese, Other (Intubated, not on any sedation. Drowsy but easily arousable) - EENT Eyes: Present: PERRL ENT: hearing intact, poor dentition - Neck Neck: Present: normal ROM - Respiratory Respiratory effort: normal Respiratory: bilateral: diminished - Cardiovascular Rhythm: irregularly irregular Heart Sounds: Present: S1 & S2 - Extremities Extremities: no ischemia, pulses intact, pulses symmetrical Extremity abnormal: edema - Peripheral Assessment Generalized Edema Type: pitting Edema Degree: 2+ Capillary Refill: < 3 seconds Skin Temperature: Warm Peripheral Pulses: within normal limits Right Upper Extremity Edema Type: pitting Edema Degree: 3+ Capillary Refill: < 3 seconds Skin Temperature: Warm Peripheral Pulses: within normal limits - Abdominal General gastrointestinal: soft, non-distended, normal bowel sounds - Integumentary Integumentary: Present: warm, dry - Psychiatric Psychiatric: appropriate mood/affect, cooperative, other (Intubated, not on any sedation. Drowsy but easily arousable) - Neurologic Neurologic: moves all extremities, other (Intubated, not on any sedation. Drowsy but easily arousable) - Allied Health Allied health notes reviewed: nursing, case management - Constitutional Vitals: Temp Pulse Resp BP Pulse Ox 99.0 F 81 14 125/48 100 05/04/22 11:00 05/04/22 11:00 05/04/22 11:00 05/04/22 11:00 05/04/22 11:00 HEART Score - HEART Score Troponin: Troponin T 0.415 ng/mL (0.00-0.029) H* 04/19/22 04:53 Results - Labs CBC & Chem 7: 05/04/22 04:26 05/04/22 04:26 Labs: Laboratory Last Values WBC 16.0 K/mm3 (4.5-11.0) H 05/04/22 04:26 RBC 2.39 M/mm3 (3.65-5.03) L 05/04/22 04:26 Hgb 6.9 gm/dl (10.1-14.3) L 05/04/22 04:26 Hct 21.4 % (30.3-42.9) L 05/04/22 04:26 MCV 90 fl (79-97) 05/04/22 04:26 MCH 29 pg (28-32) 05/04/22 04:26 MCHC 32 % (30-34) 05/04/22 04:26 RDW 15.8 % (13.2-15.2) H 05/04/22 04:26 Plt Count 197 K/mm3 (140-440) 05/04/22 04:26 Lymph % (Auto) 26.7 % (13.4-35.0) 04/20/22 05:30 [place] % (Auto) 15.2 % (0.0-7.3) H 04/20/22 05:30 Eos % (Auto) 3.8 % (0.0-4.3) 04/20/22 05:30 Baso % (Auto) 1.2 % (0.0-1.8) 04/20/22 05:30 Lymph # (Auto) 1.1 K/mm3 (1.2-5.4) L 04/20/22 05:30 [place] # (Auto) 0.6 K/mm3 (0.0-0.8) 04/20/22 05:30 Eos # (Auto) 0.2 K/mm3 (0.0-0.4) 04/20/22 05:30 Baso # (Auto) 0.0 K/mm3 (0.0-0.1) 04/20/22 05:30 Seg Neutrophils % 53.1 % (40.0-70.0) 04/20/22 05:30 Seg Neutrophils # 2.2 K/mm3 (1.8-7.7) 04/20/22 05:30 PT 17.6 Sec. (12.2-14.9) H 05/04/22 04:26 INR 1.29 (0.87-1.13) H 05/04/22 04:26 APTT 39.4 Sec. (24.2-36.6) H 05/03/22 04:24 Heparin Anti-Xa Level < 0.10 U.I./ml (0.3-0.7) L 04/24/22 10:20 ABG pH 7.547 pH Units (7.350-7.450) H 05/04/22 05:40 ABG pCO2 32.0 mm Hg 05/04/22 05:40 ABG pO2 141.7 mm Hg (80.0-90.0) H 05/04/22 05:40 ABG HCO3 27.2 mmol/L (20.0-26.0) H 05/04/22 05:40 ABG O2 Saturation 99.0 % (95.0-99.0) 05/04/22 05:40 ABG O2 Content 21.2 (0.0-44) 05/04/22 05:40 ABG Base Excess 5.3 mmol/L (-2.0-3.0) H 05/04/22 05:40 ABG Hemoglobin 6.9 gm/dl (12.0-16.0) L 05/04/22 05:40 ABG Carboxyhemoglobin 1.3 % (0.0-5.0) 05/04/22 05:40 ABG Methemoglobin 0.5 % (0.0-1.5) 05/04/22 05:40 Oxyhemoglobin 97.1 % (95.0-99.0) 05/04/22 05:40 FiO2 60 % 05/04/22 05:40 Sodium 133 mmol/L (137-145) L 05/04/22 04:26 Potassium 3.6 mmol/L (3.6-5.0) 05/04/22 04:26 Chloride 94.8 mmol/L (98-107) L 05/04/22 04:26 Carbon Dioxide 28 mmol/L (22-30) 05/04/22 04:26 Anion Gap 14 mmol/L 05/04/22 04:26 BUN 34 mg/dL (7-17) H 05/04/22 04:26 Creatinine 3.5 mg/dL (0.6-1.2) H 05/04/22 04:26 Estimated GFR 16 ml/min 05/04/22 04:26 BUN/Creatinine Ratio 10 % 05/04/22 04:26 Glucose 175 mg/dL (65-100) H 05/04/22 04:26 POC Glucose 177 mg/dL (70-105) H 05/04/22 05:41 Lactic Acid 1.60 mmol/L (0.7-2.0) 04/19/22 07:14 Calcium 9.1 mg/dL (8.4-10.2) 05/04/22 04:26 Phosphorus 2.10 mg/dL (2.5-4.5) L 05/03/22 04:24 Magnesium 2.20 mg/dL (1.7-2.3) 05/03/22 04:24 Total Bilirubin 0.30 mg/dL (0.1-1.2) 04/20/22 05:30 AST 11 units/L (5-40) 04/20/22 05:30 ALT 7 units/L (7-56) 04/20/22 05:30 Alkaline Phosphatase 101 units/L (35-129) 04/20/22 05:30 Ammonia 25.0 umol/L (25-60) 04/19/22 04:53 Troponin T 0.415 ng/mL (0.00-0.029) H* 04/19/22 04:53 Total Protein 6.4 g/dL (6.3-8.2) 04/20/22 05:30 Albumin 2.4 g/dL (3.9-5) L 04/20/22 05:30 Albumin/Globulin Ratio 0.6 % 04/20/22 05:30 TSH 1.700 mlU/mL (0.270-4.200) 04/19/22 04:53 Free T4 0.28 ng/dL (0.76-1.46) L 04/19/22 04:53 Total Cortisol 24.4 mcg/dL () 04/27/22 04:45 Coronavirus (PCR) Negative (Negative) 05/03/22 11:30 Hepatitis A IgM Ab Non-reactive (NonReactive) 04/19/22 04:53 Hep Bs Antigen Non-reactive (Negative) 04/19/22 04:53 Hep B Core IgM Ab Non-reactive (NonReactive) 04/19/22 04:53 Hepatitis C Antibody Non-reactive (NonReactive) 04/19/22 04:53 Blood Type A POSITIVE 05/04/22 05:30 Antibody Screen Negative 05/04/22 05:30 Crossmatch See Detail 05/04/22 05:30 Microbiology: Microbiology 05/03/22 10:30 Bronchial Washings - Right Lower Lobe Respiratory Culture - Preliminary [place]/IV: Voiding Method Incontinent Active Medications - Current Medications Current Medications: Generic Name Dose Route Start Last Admin Trade Name Freq PRN Reason Stop Dose Admin Acetaminophen 650 mg 04/22/22 20:12 05/03/22 23:41 Acetaminophen 325 Mg/10.15 Ml Oral Liqd Unit Dose PO 650 mg Q6H PRN Administration Pain MILD(1-3)/Fever >100.5/DRAKE Acetylcysteine 100 mg 05/03/22 20:00 05/04/22 07:41 Acetylcysteine 10% 100 Mg/1 Ml *For Inhalation Use* INHALATION Not Given Q12HRT CONNOR Albumin Human 25 gm 04/21/22 13:00 04/22/22 16:31 Albumin Human 25% (25 Gm/100 Ml) Inj IV 25 gm BIANCA PRN Administration Hypotension Albuterol 2.5 mg 04/21/22 08:30 04/24/22 16:51 Albuterol 2.5 Mg/3 Ml Nebu IH 2.5 mg Q3HRT PRN Administration Shortness Of Breath Albuterol/Ipratropium 1 ampul 04/21/22 14:00 05/03/22 20:58 Ipratropium/Albuterol Sulfate 3 Ml Ampul.Neb IH 1 ampul TIDRT CONNOR Administration Bisacodyl 10 mg 05/04/22 10:00 Bisacodyl 10 Mg Rect Supp TN 05/06/22 09:59 QDAY CONNOR Docusate Sodium 100 mg 05/01/22 22:00 05/03/22 21:13 Docusate Sodium 100 Mg/10 Ml Oral Liqd FEEDTUBE 100 mg BID CONNOR Administration Epoetin Lb-epbx 20,000 unit 04/23/22 12:00 05/02/22 12:30 Epoetin Lb-Epbx 20,000 Unit/1 Ml Vial IV 20,000 unit BIANCA PRN Administration HEMODIALYSIS Fentanyl 50 mcg 05/03/22 10:29 Fentanyl 100 Mcg/2 Ml Inj IV Q10MIN PRN ANALGESIA Sodium Chloride 100 mls @ 999 mls/hr 04/22/22 09:12 Nacl 0.9% IV BIANCA PRN Hypotension Fentanyl Citrate 2,000 mcg in 100 mls @ 2.722 mls/hr 05/03/22 11:00 Fentanyl Drip Premix IV TITR CONNOR Protocol 1 MCG/KG/HR NORepinephrine/NS 8 MG-250 ML 8 mg in 250 mls @ 3.75 mls/hr 05/03/22 13:15 05/04/22 10:15 Norepinephrine/Ns 8 Mg-250 Ml (Double Conc) IV 10 mcg/min TITRATE CONNOR 18.75 mls/hr Titration Protocol 2 MCG/MIN Vasopressin 20 unit/ Sodium 101 mls @ 9.09 mls/hr 05/04/22 00:30 05/04/22 10:12 Chloride IV 0.03 units/min TITR CONNOR 9.09 mls/hr Administration 0.03 UNITS/MIN Lansoprazole 30 mg 04/23/22 10:00 05/03/22 10:15 Lansoprazole 30 Mg Solutab FEEDTUBE 30 mg QDAY CONNOR Administration Lorazepam 0.5 mg 04/25/22 09:59 Lorazepam 0.5 Mg Tab FEEDTUBE QDAY PRN Anxiety Memantine 5 mg 04/25/22 10:00 05/03/22 21:14 Memantine 5 Mg Tab FEEDTUBE 5 mg BID CONNOR Administration Metoclopramide HCl 5 mg 04/19/22 09:55 Metoclopramide 10 Mg/2 Ml Inj IV Q6H PRN Nausea And Vomiting Midodrine 20 mg 04/26/22 14:00 05/04/22 08:00 Midodrine 10 Mg Tab FEEDTUBE Not Given TID CONNOR Naloxone HCl 0.1 mg 04/19/22 09:55 Naloxone 0.4 Mg/1 Ml Inj IV Q2MIN PRN Res Rate </= 8 or 02 SAT < 92% Oxymetazoline HCl 2 spray 05/01/22 15:05 Oxymetazoline 0.05% Nasal [place] 05/04/22 15:04 Q12H PRN Nasal Congestion Polyethylene Glycol 17 gm 05/03/22 10:00 05/03/22 10:14 Polyethylene Glycol 3350 17 Gm Powder FEEDTUBE Not Given QDAY CONNOR Risperidone 0.5 mg 04/25/22 11:00 05/03/22 21:13 Risperidone 1 Mg Tab FEEDTUBE 0.5 mg BID CONNOR Administration Scopolamine 1 each 05/02/22 10:00 05/02/22 09:50 Scopolamine Transdermal Patch 72 Hr TD 1 each Q3D CONNOR Administration Senna 17.2 mg 04/23/22 10:00 05/03/22 21:13 Sennosides 8.6 Mg Tab FEEDTUBE 17.2 mg BID CONNOR Administration Sodium Chloride 10 ml 04/19/22 12:00 05/03/22 21:20 Sodium Chloride 0.9% 10 Ml Flush Syringe IV 10 ml BID CONNOR Administration Sodium Chloride 10 ml 04/19/22 11:19 Sodium Chloride 0.9% 10 Ml Flush Syringe IV PRN PRN LINE FLUSH Valproic Acid 750 mg 04/22/22 22:00 05/03/22 21:13 Valproic Acid 250 Mg/5 Ml Oral Liqd FEEDTUBE 750 mg BID CONNOR Administration Nutrition/Malnutrition Assess - Dietary Evaluation Nutrition/Malnutrition Findings: Nutrition Notes Start: 04/19/22 17:39 Freq: Status: Active Protocol: Document 05/03/22 11:10 MIRIAN (Rec: 05/03/22 11:27 MIRIAN [id number]) Nutrition Notes Initial or Follow up Brief Note Current Diagnosis CKD (stage V CKD),Hypertension ,Respiratory Failure, Malnutrition Other Pertinent Diagnosis Metabolic Encephalopathy, ESRD +HD, Anemia, NSTEMI II, SIRS, Dysphagia... Current Diet NPO (since 05/03 00:01). Height 5 ft 2 in Weight 54.43 kg [place] Body Weight (kg) 50.00 BMI 21.9 Weight change and time frame No body weight change reported in 2 weeks. Weight Status Appropriate Subjective/Other Information RD consult for routine F/U on TF tolerance/continuation assessment. Pt continues on NPO. Pt has been intubated few minutes ago, PEG placement has been deferred for 05/04 if Pt remains stable on the vent, according to Gastroenterology notes. TF will be resumed today and Pt will be NPO from 05/04 00: 01, according to Gastroenterology notes. Percent of energy/protein needs met: Pt temporarily on NPO. Prescribed TF-Nepro w/ CARBSTEADY @ 30 ml/hr provides for energy/protein needs (1, 269 Kcal/58 g) during LOS, 102 % Kcal; 89% AA. #1 Nutrition Diagnosis Swallowing difficulty Diagnosis Progress(for reassessment Continues documentation) Is patient on ventilator? No Is Patient Ambulatory and/or Out of Bed No REE-([place]-confined to bed) [phone] Calculation Used for Recommendations [facility] Additional Notes Protein: >1.2 g/Kg ABW; >65 g/ day. Fluids: 1-1.5 L/day, or as per MD. Nutrition Intervention Nutrition Support: Resume Nepro w/CARBSTEADY @ 30 ml/hr. Flush: 130 ml water Q 4 hr, or as per MD. Kcal 1,269 Protein (gm) 58 Carbohydrates (gm) 116 Fat (gm) 58 Fluid (mL) 523 Fiber (gm) 9 % RDI: 102% Kcal; 89% AA. Goal #1 Provide at least 75% of energy /protein needs through Enteral Feeding during LOS. Follow-Up By: 05/05/22 Additional Comments Continue monitoring TF tolerance, PEG-tube placement, and BM. <MELINDA BOWEN - Last Filed: 05/04/22 20:11> Assessment and Plan Assessment and plan: I saw and evaluated the patient. I agree with the findings and the plan of care as documented in the Nurse Practitioner's~note, with the following corrections and additions. Hospitalist Physical - Constitutional Vitals: Temp Pulse Resp BP Pulse Ox 100.5 F H 88 14 103/40 100 05/04/22 19:32 05/04/22 19:59 05/04/22 19:59 05/04/22 19:53 05/04/22 19:53 HEART Score - HEART Score Troponin: Troponin T 0.415 ng/mL (0.00-0.029) H* 04/19/22 04:53 Results - Labs CBC & Chem 7: 05/04/22 04:26 05/04/22 04:26 Labs: Laboratory Last Values WBC 16.0 K/mm3 (4.5-11.0) H 05/04/22 04:26 RBC 2.39 M/mm3 (3.65-5.03) L 05/04/22 04:26 Hgb 6.9 gm/dl (10.1-14.3) L 05/04/22 04:26 Hct 21.4 % (30.3-42.9) L 05/04/22 04:26 MCV 90 fl (79-97) 05/04/22 04:26 MCH 29 pg (28-32) 05/04/22 04:26 MCHC 32 % (30-34) 05/04/22 04:26 RDW 15.8 % (13.2-15.2) H 05/04/22 04:26 Plt Count 197 K/mm3 (140-440) 05/04/22 04:26 Lymph % (Auto) 26.7 % (13.4-35.0) 04/20/22 05:30 [place] % (Auto) 15.2 % (0.0-7.3) H 04/20/22 05:30 Eos % (Auto) 3.8 % (0.0-4.3) 04/20/22 05:30 Baso % (Auto) 1.2 % (0.0-1.8) 04/20/22 05:30 Lymph # (Auto) 1.1 K/mm3 (1.2-5.4) L 04/20/22 05:30 [place] # (Auto) 0.6 K/mm3 (0.0-0.8) 04/20/22 05:30 Eos # (Auto) 0.2 K/mm3 (0.0-0.4) 04/20/22 05:30 Baso # (Auto) 0.0 K/mm3 (0.0-0.1) 04/20/22 05:30 Seg Neutrophils % 53.1 % (40.0-70.0) 04/20/22 05:30 Seg Neutrophils # 2.2 K/mm3 (1.8-7.7) 04/20/22 05:30 PT 17.6 Sec. (12.2-14.9) H 05/04/22 04:26 INR 1.29 (0.87-1.13) H 05/04/22 04:26 APTT 39.4 Sec. (24.2-36.6) H 05/03/22 04:24 Heparin Anti-Xa Level < 0.10 U.I./ml (0.3-0.7) L 04/24/22 10:20 ABG pH 7.547 pH Units (7.350-7.450) H 05/04/22 05:40 ABG pCO2 32.0 mm Hg 05/04/22 05:40 ABG pO2 141.7 mm Hg (80.0-90.0) H 05/04/22 05:40 ABG HCO3 27.2 mmol/L (20.0-26.0) H 05/04/22 05:40 ABG O2 Saturation 99.0 % (95.0-99.0) 05/04/22 05:40 ABG O2 Content 21.2 (0.0-44) 05/04/22 05:40 ABG Base Excess 5.3 mmol/L (-2.0-3.0) H 05/04/22 05:40 ABG Hemoglobin 6.9 gm/dl (12.0-16.0) L 05/04/22 05:40 ABG Carboxyhemoglobin 1.3 % (0.0-5.0) 05/04/22 05:40 ABG Methemoglobin 0.5 % (0.0-1.5) 05/04/22 05:40 Oxyhemoglobin 97.1 % (95.0-99.0) 05/04/22 05:40 FiO2 60 % 05/04/22 05:40 Sodium 133 mmol/L (137-145) L 05/04/22 04:26 Potassium 3.6 mmol/L (3.6-5.0) 05/04/22 04:26 Chloride 94.8 mmol/L (98-107) L 05/04/22 04:26 Carbon Dioxide 28 mmol/L (22-30) 05/04/22 04:26 Anion Gap 14 mmol/L 05/04/22 04:26 BUN 34 mg/dL (7-17) H 05/04/22 04:26 Creatinine 3.5 mg/dL (0.6-1.2) H 05/04/22 04:26 Estimated GFR 16 ml/min 05/04/22 04:26 BUN/Creatinine Ratio 10 % 05/04/22 04:26 Glucose 175 mg/dL (65-100) H 05/04/22 04:26 POC Glucose 143 mg/dL (70-105) H 05/04/22 18:10 Lactic Acid 1.60 mmol/L (0.7-2.0) 04/19/22 07:14 Calcium 9.1 mg/dL (8.4-10.2) 05/04/22 04:26 Phosphorus 2.10 mg/dL (2.5-4.5) L 05/03/22 04:24 Magnesium 2.20 mg/dL (1.7-2.3) 05/03/22 04:24 Total Bilirubin 0.30 mg/dL (0.1-1.2) 04/20/22 05:30 AST 11 units/L (5-40) 04/20/22 05:30 ALT 7 units/L (7-56) 04/20/22 05:30 Alkaline Phosphatase 101 units/L (35-129) 04/20/22 05:30 Ammonia 25.0 umol/L (25-60) 04/19/22 04:53 Troponin T 0.415 ng/mL (0.00-0.029) H* 04/19/22 04:53 Total Protein 6.4 g/dL (6.3-8.2) 04/20/22 05:30 Albumin 2.4 g/dL (3.9-5) L 04/20/22 05:30 Albumin/Globulin Ratio 0.6 % 04/20/22 05:30 TSH 1.700 mlU/mL (0.270-4.200) 04/19/22 04:53 Free T4 0.28 ng/dL (0.76-1.46) L 04/19/22 04:53 Total Cortisol 24.4 mcg/dL () 04/27/22 04:45 Coronavirus (PCR) Negative (Negative) 05/03/22 11:30 Hepatitis A IgM Ab Non-reactive (NonReactive) 04/19/22 04:53 Hep Bs Antigen Non-reactive (Negative) 04/19/22 04:53 Hep B Core IgM Ab Non-reactive (NonReactive) 04/19/22 04:53 Hepatitis C Antibody Non-reactive (NonReactive) 04/19/22 04:53 Blood Type A POSITIVE 05/04/22 05:30 Antibody Screen Negative 05/04/22 05:30 Crossmatch See Detail 05/04/22 05:30 Microbiology: Microbiology 05/03/22 10:30 Bronchial Washings - Right Lower Lobe Respiratory Culture - Preliminary Staphylococcus Aureus Cleary/IV: Voiding Method Incontinent Active Medications - Current Medications Current Medications: Generic Name Dose Route Start Last Admin Trade Name Freq PRN Reason Stop Dose Admin Acetaminophen 650 mg 04/22/22 20:12 05/03/22 23:41 Acetaminophen 325 Mg/10.15 Ml Oral Liqd Unit Dose PO 650 mg Q6H PRN Administration Pain MILD(1-3)/Fever >100.5/DRAKE Acetylcysteine 100 mg 05/03/22 20:00 05/04/22 19:53 Acetylcysteine 10% 100 Mg/1 Ml *For Inhalation Use* INHALATION 100 mg Q12HRT CONNOR Administration Albumin Human 25 gm 04/21/22 13:00 04/22/22 16:31 Albumin Human 25% (25 Gm/100 Ml) Inj IV 25 gm BIANCA PRN Administration Hypotension Albuterol 2.5 mg 04/21/22 08:30 04/24/22 16:51 Albuterol 2.5 Mg/3 Ml Nebu IH 2.5 mg Q3HRT PRN Administration Shortness Of Breath Albuterol/Ipratropium 1 ampul 04/21/22 14:00 05/04/22 19:53 Ipratropium/Albuterol Sulfate 3 Ml Ampul.Neb IH 1 ampul TIDRT CONNOR Administration Bisacodyl 10 mg 05/04/22 10:00 05/04/22 10:15 Bisacodyl 10 Mg Rect Supp TN 05/06/22 09:59 10 mg QDAY CONNOR Administration Docusate Sodium 100 mg 05/01/22 22:00 05/04/22 13:35 Docusate Sodium 100 Mg/10 Ml Oral Liqd FEEDTUBE 100 mg BID CONNOR Administration Epoetin Lb-epbx 20,000 unit 04/23/22 12:00 05/04/22 13:19 Epoetin Lb-Epbx 20,000 Unit/1 Ml Vial IV 20,000 unit BIANCA PRN Administration HEMODIALYSIS Fentanyl 50 mcg 05/03/22 10:29 05/04/22 16:14 Fentanyl 100 Mcg/2 Ml Inj IV 50 mcg Q10MIN PRN Administration ANALGESIA Sodium Chloride 100 mls @ 999 mls/hr 04/22/22 09:12 Nacl 0.9% IV BIANCA PRN Hypotension Fentanyl Citrate 2,000 mcg in 100 mls @ 2.722 mls/hr 05/03/22 11:00 Fentanyl Drip Premix IV TITR CONNOR Protocol 1 MCG/KG/HR NORepinephrine/NS 8 MG-250 ML 8 mg in 250 mls @ 3.75 mls/hr 05/03/22 13:15 05/04/22 19:19 Norepinephrine/Ns 8 Mg-250 Ml (Double Conc) IV 10 mcg/min TITRATE CONNOR 18.75 mls/hr Titration Protocol 2 MCG/MIN Vasopressin 20 unit/ Sodium 101 mls @ 9.09 mls/hr 05/04/22 00:30 05/04/22 19:19 Chloride IV 0.03 units/min TITR CONNOR 9.09 mls/hr Infusion 0.03 UNITS/MIN Cefepime HCl 1 gm in 100 mls @ 200 mls/hr 05/04/22 18:00 05/04/22 19:19 Cefepime/Ns 1 Gm/100 Ml IV Infused QPM CONNOR Infusion Protocol Vancomycin HCl 1 gm in 250 mls @ 167.007 mls/hr 05/04/22 22:00 Vancomycin/Ns 1 Gm/250 Ml IV 05/05/22 02:00 ONCE@2200 CONNOR Lansoprazole 30 mg 04/23/22 10:00 05/04/22 13:29 Lansoprazole 30 Mg Solutab FEEDTUBE 30 mg QDAY CONNOR Administration Lorazepam 0.5 mg 04/25/22 09:59 Lorazepam 0.5 Mg Tab FEEDTUBE QDAY PRN Anxiety Memantine 5 mg 04/25/22 10:00 05/04/22 13:29 Memantine 5 Mg Tab FEEDTUBE 5 mg BID CONNOR Administration Metoclopramide HCl 5 mg 04/19/22 09:55 Metoclopramide 10 Mg/2 Ml Inj IV Q6H PRN Nausea And Vomiting Midodrine 20 mg 04/26/22 14:00 05/04/22 13:28 Midodrine 10 Mg Tab FEEDTUBE 20 mg TID CONNOR Administration Naloxone HCl 0.1 mg 04/19/22 09:55 Naloxone 0.4 Mg/1 Ml Inj IV Q2MIN PRN Res Rate </= 8 or 02 SAT < 92% Polyethylene Glycol 17 gm 05/03/22 10:00 05/04/22 13:30 Polyethylene Glycol 3350 17 Gm Powder FEEDTUBE 17 gm QDAY CONNOR Administration Risperidone 0.5 mg 04/25/22 11:00 05/04/22 13:29 Risperidone 1 Mg Tab FEEDTUBE 0.5 mg BID CONNOR Administration Scopolamine 1 each 05/02/22 10:00 05/02/22 09:50 Scopolamine Transdermal Patch 72 Hr TD 1 each Q3D CONNOR Administration Senna 17.2 mg 04/23/22 10:00 05/04/22 13:29 Sennosides 8.6 Mg Tab FEEDTUBE 17.2 mg BID CONNOR Administration Sodium Chloride 10 ml 04/19/22 12:00 05/04/22 10:15 Sodium Chloride 0.9% 10 Ml Flush Syringe IV 10 ml BID CONNOR Administration Sodium Chloride 10 ml 04/19/22 11:19 Sodium Chloride 0.9% 10 Ml Flush Syringe IV PRN PRN LINE FLUSH Valproic Acid 750 mg 04/22/22 22:00 05/04/22 13:35 Valproic Acid 250 Mg/5 Ml Oral Liqd FEEDTUBE 750 mg BID CONNOR Administration Nutrition/Malnutrition Assess - Dietary Evaluation Nutrition/Malnutrition Findings: Nutrition Notes Start: 04/19/22 17:39 Freq: Status: Active Protocol: Document 05/03/22 11:10 MIRIAN (Rec: 05/03/22 11:27 MIRIAN [id number]) Nutrition Notes Initial or Follow up Brief Note Current Diagnosis CKD (stage V CKD),Hypertension ,Respiratory Failure, Malnutrition Other Pertinent Diagnosis Metabolic Encephalopathy, ESRD +HD, Anemia, NSTEMI II, SIRS, Dysphagia... Current Diet NPO (since 05/03 00:01). Height 5 ft 2 in Weight 54.43 kg [place] Body Weight (kg) 50.00 BMI 21.9 Weight change and time frame No body weight change reported in 2 weeks. Weight Status Appropriate Subjective/Other Information RD consult for routine F/U on TF tolerance/continuation assessment. Pt continues on NPO. Pt has been intubated few minutes ago, PEG placement has been deferred for 05/04 if Pt remains stable on the vent, according to Gastroenterology notes. TF will be resumed today and Pt will be NPO from 05/04 00: 01, according to Gastroenterology notes. Percent of energy/protein needs met: Pt temporarily on NPO. Prescribed TF-Nepro w/ CARBSTEADY @ 30 ml/hr provides for energy/protein needs (1, 269 Kcal/58 g) during LOS, 102 % Kcal; 89% AA. #1 Nutrition Diagnosis Swallowing difficulty Diagnosis Progress(for reassessment Continues documentation) Is patient on ventilator? No Is Patient Ambulatory and/or Out of Bed No REE-([place]-[facility] [facility]-confined to bed) [phone] Calculation Used for Recommendations [facility] Additional Notes Protein: >1.2 g/Kg ABW; >65 g/ day. Fluids: 1-1.5 L/day, or as per MD. Nutrition Intervention Nutrition Support: Resume Nepro w/CARBSTEADY @ 30 ml/hr. Flush: 130 ml water Q 4 hr, or as per MD. Kcal 1,269 Protein (gm) 58 Carbohydrates (gm) 116 Fat (gm) 58 Fluid (mL) 523 Fiber (gm) 9 % RDI: 102% Kcal; 89% AA. Goal #1 Provide at least 75% of energy /protein needs through Enteral Feeding during LOS. Follow-Up By: 05/05/22 Additional Comments Continue monitoring TF tolerance, PEG-tube placement, and BM.
--- NOTE | 2022-05-04 12:27 | Progress Note ---
Assessment and Plan Acute hypoxemic respiratory failure, Acute on Chronic Hypotension Acute on Chronic Metabolic Encephalopathy Possible Shock Syndrome SVT Elevated troponin, Bipolar disorder, Schizophrenia, Hyperkalemia ESRD on hemodialysis, Anemia of chronic disease, Type 2 NSTEMI GERD Subclinical Hypothyroidism Moderate protein caloric malnutrition - S/P PEG today - begin empiric Vancomycin and Cefepime for HAP / Aspiration Pneumonia - ID consult - send blood cultures for fever > 101F - wean Levophed for target MAP > 65 mmHg while septic - may ultimately need a tracheostomy if AMS is persistent - LTAC evaluation is appropriate - continue care as below otherwise; - continue Daily SAT and SBT assessment as tolerated - sedation prn for target RASS 0 to -1 - VAP bundle addressed - continue lung protective strategies - continue bronchodilators with pulmonary hygiene per RT - wean per pulmonary driven protocols otherwise - enteral nutrition at goal rate as tolerated - continue Midodrine for BP support - femoral CVL replaced as no other viable site for access - Albumin 25 gms of 25% solution prn with dialysis - continue HD/UF per nephrology prescription for toxin and volume clearance - continue accuchecks with glycemic control per SSI (While critically ill target blood glucose of 140-180 mg/dL; avoid hypoglycemia) - continue supplemental oxygen for target O2 sat's > 90% acutely - avoid nephrotoxins, renally dose all medications - continue to avoid benzodiazepine's, reduce the possibility of delirium - prn analgesia per CPOT score - Maintenance of sleep-wake cycle, avoid delirium - G.I. & VTE prophylaxis - PT/OT/ROM exercises - continue mobility protocols for pressure ulcer prophylaxis - Monitor hemodynamics closely - continue other care per attending / other consultants - discharge planning ongoing concurrently .... Re-evaluate in am & prn CONDITION: CRITICAL PROGNOSIS: GUARDED CODE STATUS: FULL CODE The high probability of a clinically significant, sudden or life-threatening deterioration of the [respiratory, cardiovascular, renal & neurologic] system(s) required my full and direct attention, intervention and personal management. The aggregate critical care time was [34] minutes without overlap. Time includes spent on; [x] Data Review and interpretation [x] Patient assessment and monitoring of vital signs [x] Documentation [x] Medication orders and management Subjective Date of service: 05/04/22 Principal diagnosis: AHRF; Shock; AMS; SVT; NSTEMI; ESRD; Protein calorie malnutrition Interval history: Patient is seen today for: Acute hypoxemic respiratory failure; Shock / Hypotension; AMS; SVT; NSTEMI; Schizophrenia; ESRD on Dialysis; Moderate protein caloric malnutrition Seen and examined at bedside; 24hour events reviewed; nursing and respiratory c are staff consulted; no adverse overnight events reported to me; resting in bed; back on Levophed now at 8 artem's/min; now intubated; dialysis ongoing and targeting 1500 ml's UF; has been running fevers up t0 > 101F; remains lethargic; no emesis or overt aspiration; for PEG today Objective Vital Signs - 12hr 05/04/22 05/04/22 05/04/22 00:30 00:45 01:00 Temperature Pulse Rate 102 H 94 H 84 Pulse Rate [ Anterior Bilateral Throughout] Pulse Rate [ From Monitor] Respiratory 14 14 14 Rate Respiratory Rate [Anterior Bilateral Throughout] Blood Pressure 80/21 89/24 84/24 O2 Sat by Pulse 100 100 100 Oximetry O2 Sat by Pulse Oximetry [ Anterior Bilateral Throughout] 05/04/22 05/04/22 05/04/22 01:15 01:30 01:45 Temperature Pulse Rate 85 89 99 H Pulse Rate [ Anterior Bilateral Throughout] Pulse Rate [ From Monitor] Respiratory 14 14 14 Rate Respiratory Rate [Anterior Bilateral Throughout] Blood Pressure 106/46 105/47 106/53 O2 Sat by Pulse 100 100 100 Oximetry O2 Sat by Pulse Oximetry [ Anterior Bilateral Throughout] 05/04/22 05/04/22 05/04/22 02:00 02:15 02:30 Temperature Pulse Rate 100 H 96 H Pulse Rate [ Anterior Bilateral Throughout] Pulse Rate [ From Monitor] Respiratory 14 14 Rate Respiratory Rate [Anterior Bilateral Throughout] Blood Pressure 105/52 104/52 104/52 O2 Sat by Pulse 100 100 100 Oximetry O2 Sat by Pulse Oximetry [ Anterior Bilateral Throughout] 05/04/22 05/04/22 05/04/22 02:45 03:00 03:16 Temperature Pulse Rate 103 H 97 H 109 H Pulse Rate [ Anterior Bilateral Throughout] Pulse Rate [ From Monitor] Respiratory 14 14 18 Rate Respiratory Rate [Anterior Bilateral Throughout] Blood Pressure 114/54 106/50 107/69 O2 Sat by Pulse 100 100 100 Oximetry O2 Sat by Pulse Oximetry [ Anterior Bilateral Throughout] 05/04/22 05/04/22 05/04/22 03:30 03:45 04:00 Temperature 98.8 F Pulse Rate 102 H 93 H 94 H Pulse Rate [ Anterior Bilateral Throughout] Pulse Rate [ From Monitor] Respiratory 15 14 14 Rate Respiratory Rate [Anterior Bilateral Throughout] Blood Pressure 118/61 118/51 109/49 O2 Sat by Pulse 100 100 100 Oximetry O2 Sat by Pulse Oximetry [ Anterior Bilateral Throughout] 05/04/22 05/04/22 05/04/22 04:15 04:30 04:45 Temperature Pulse Rate 87 85 84 Pulse Rate [ Anterior Bilateral Throughout] Pulse Rate [ From Monitor] Respiratory 14 14 14 Rate Respiratory Rate [Anterior Bilateral Throughout] Blood Pressure 112/49 100/48 105/54 O2 Sat by Pulse 100 100 100 Oximetry O2 Sat by Pulse Oximetry [ Anterior Bilateral Throughout] 05/04/22 05/04/22 05/04/22 05:00 05:15 05:30 Temperature Pulse Rate 81 85 88 Pulse Rate [ Anterior Bilateral Throughout] Pulse Rate [ From Monitor] Respiratory 14 14 14 Rate Respiratory Rate [Anterior Bilateral Throughout] Blood Pressure 118/52 116/56 116/56 O2 Sat by Pulse 100 100 100 Oximetry O2 Sat by Pulse Oximetry [ Anterior Bilateral Throughout] 05/04/22 05/04/22 05/04/22 05:42 05:45 06:00 Temperature Pulse Rate 85 86 88 Pulse Rate [ Anterior Bilateral Throughout] Pulse Rate [ From Monitor] Respiratory 14 15 Rate Respiratory Rate [Anterior Bilateral Throughout] Blood Pressure 75/48 119/59 100/45 O2 Sat by Pulse 100 100 100 Oximetry O2 Sat by Pulse Oximetry [ Anterior Bilateral Throughout] 05/04/22 05/04/22 05/04/22 06:15 06:20 06:26 Temperature Pulse Rate 92 H 89 96 H Pulse Rate [ Anterior Bilateral Throughout] Pulse Rate [ From Monitor] Respiratory 18 11 L 18 Rate Respiratory Rate [Anterior Bilateral Throughout] Blood Pressure 118/51 118/51 118/51 O2 Sat by Pulse 100 100 100 Oximetry O2 Sat by Pulse Oximetry [ Anterior Bilateral Throughout] 05/04/22 05/04/22 05/04/22 06:30 06:36 06:40 Temperature Pulse Rate 86 86 82 Pulse Rate [ Anterior Bilateral Throughout] Pulse Rate [ From Monitor] Respiratory 14 14 14 Rate Respiratory Rate [Anterior Bilateral Throughout] Blood Pressure 115/43 115/43 118/51 O2 Sat by Pulse 100 100 100 Oximetry O2 Sat by Pulse Oximetry [ Anterior Bilateral Throughout] 05/04/22 05/04/22 05/04/22 06:45 06:50 06:56 Temperature Pulse Rate 82 80 81 Pulse Rate [ Anterior Bilateral Throughout] Pulse Rate [ From Monitor] Respiratory 14 14 14 Rate Respiratory Rate [Anterior Bilateral Throughout] Blood Pressure 116/46 116/46 116/46 O2 Sat by Pulse 100 100 100 Oximetry O2 Sat by Pulse Oximetry [ Anterior Bilateral Throughout] 05/04/22 05/04/22 05/04/22 07:00 07:06 07:10 Temperature Pulse Rate 82 81 82 Pulse Rate [ Anterior Bilateral Throughout] Pulse Rate [ From Monitor] Respiratory 14 14 14 Rate Respiratory Rate [Anterior Bilateral Throughout] Blood Pressure 112/39 112/39 115/43 O2 Sat by Pulse 100 100 100 Oximetry O2 Sat by Pulse Oximetry [ Anterior Bilateral Throughout] 05/04/22 05/04/22 05/04/22 07:15 07:20 07:26 Temperature Pulse Rate 80 84 83 Pulse Rate [ Anterior Bilateral Throughout] Pulse Rate [ From Monitor] Respiratory 14 14 14 Rate Respiratory Rate [Anterior Bilateral Throughout] Blood Pressure 114/46 114/46 114/46 O2 Sat by Pulse 100 100 100 Oximetry O2 Sat by Pulse Oximetry [ Anterior Bilateral Throughout] 05/04/22 05/04/22 05/04/22 07:30 07:36 07:40 Temperature Pulse Rate 84 81 84 Pulse Rate [ Anterior Bilateral Throughout] Pulse Rate [ From Monitor] Respiratory 14 14 14 Rate Respiratory Rate [Anterior Bilateral Throughout] Blood Pressure 118/44 118/44 114/46 O2 Sat by Pulse 100 100 100 Oximetry O2 Sat by Pulse Oximetry [ Anterior Bilateral Throughout] 05/04/22 05/04/22 05/04/22 07:42 07:46 07:50 Temperature 98.8 F Pulse Rate 86 93 H 92 H Pulse Rate [ 84 Anterior Bilateral Throughout] Pulse Rate [ From Monitor] Respiratory 12 14 Rate Respiratory 14 Rate [Anterior Bilateral Throughout] Blood Pressure 118/44 107/46 107/46 O2 Sat by Pulse 100 100 100 Oximetry O2 Sat by Pulse Oximetry [ Anterior Bilateral Throughout] 05/04/22 05/04/22 05/04/22 07:56 08:00 08:06 Temperature 98.8 F Pulse Rate 86 87 88 Pulse Rate [ Anterior Bilateral Throughout] Pulse Rate [ 83 From Monitor] Respiratory 14 14 14 Rate Respiratory Rate [Anterior Bilateral Throughout] Blood Pressure 107/46 117/48 117/48 O2 Sat by Pulse 100 100 100 Oximetry O2 Sat by Pulse Oximetry [ Anterior Bilateral Throughout] 05/04/22 05/04/22 05/04/22 08:10 08:16 08:20 Temperature Pulse Rate 87 97 H 94 H Pulse Rate [ Anterior Bilateral Throughout] Pulse Rate [ From Monitor] Respiratory 14 14 14 Rate Respiratory Rate [Anterior Bilateral Throughout] Blood Pressure 117/48 112/56 112/54 O2 Sat by Pulse 100 100 100 Oximetry O2 Sat by Pulse Oximetry [ Anterior Bilateral Throughout] 05/04/22 05/04/22 05/04/22 08:25 08:26 08:30 Temperature 98.6 F Pulse Rate 87 86 86 Pulse Rate [ Anterior Bilateral Throughout] Pulse Rate [ From Monitor] Respiratory 14 17 14 Rate Respiratory Rate [Anterior Bilateral Throughout] Blood Pressure 113/51 113/51 121/53 O2 Sat by Pulse 100 100 100 Oximetry O2 Sat by Pulse Oximetry [ Anterior Bilateral Throughout] 05/04/22 05/04/22 05/04/22 08:35 08:40 08:45 Temperature Pulse Rate 85 85 82 Pulse Rate [ Anterior Bilateral Throughout] Pulse Rate [ From Monitor] Respiratory 14 14 14 Rate Respiratory Rate [Anterior Bilateral Throughout] Blood Pressure 112/36 116/39 125/42 O2 Sat by Pulse 100 100 100 Oximetry O2 Sat by Pulse Oximetry [ Anterior Bilateral Throughout] 05/04/22 05/04/22 05/04/22 08:50 09:45 10:15 Temperature 98.2 F Pulse Rate 86 83 82 Pulse Rate [ Anterior Bilateral Throughout] Pulse Rate [ From Monitor] Respiratory 14 15 Rate Respiratory Rate [Anterior Bilateral Throughout] Blood Pressure 121/39 126/43 138/45 O2 Sat by Pulse 100 Oximetry O2 Sat by Pulse 100 Oximetry [ Anterior Bilateral Throughout] 05/04/22 05/04/22 05/04/22 10:30 10:45 11:00 Temperature 98.2 F 98.2 F 99.0 F Pulse Rate 101 H 96 H 81 Pulse Rate [ Anterior Bilateral Throughout] Pulse Rate [ From Monitor] Respiratory 15 15 14 Rate Respiratory Rate [Anterior Bilateral Throughout] Blood Pressure 106/52 104/50 125/48 O2 Sat by Pulse 100 100 100 Oximetry O2 Sat by Pulse Oximetry [ Anterior Bilateral Throughout] 05/04/22 05/04/22 05/04/22 11:15 11:30 11:45 Temperature 99.1 F Pulse Rate 84 88 100 H Pulse Rate [ Anterior Bilateral Throughout] Pulse Rate [ From Monitor] Respiratory 14 Rate Respiratory Rate [Anterior Bilateral Throughout] Blood Pressure 119/39 106/53 113/59 O2 Sat by Pulse 100 Oximetry O2 Sat by Pulse Oximetry [ Anterior Bilateral Throughout] 05/04/22 05/04/22 12:00 12:15 Temperature Pulse Rate 99 H 91 H Pulse Rate [ Anterior Bilateral Throughout] Pulse Rate [ From Monitor] Respiratory Rate Respiratory Rate [Anterior Bilateral Throughout] Blood Pressure 132/76 98/47 O2 Sat by Pulse Oximetry O2 Sat by Pulse Oximetry [ Anterior Bilateral Throughout] Constitutional: appears uncomfortable, other (eldely female with mildly increased respiratory effort at rest on MVS) Eyes: non-icteric ENT: oropharynx moist, oropharyngeal exudate pre (mild) Neck: supple, no lymphadenopathy, no JVD Effort: mildly labored Ascultation: Bilateral: diminished breath sounds, rhonchi Percussion: Bilateral: not dull Cardiovascular: regular rate and rhythm, other (S1,S2) Gastrointestinal: normoactive bowel sounds, soft, non-tender, non-distended Integumentary: normal Extremities: no cyanosis, pulses normal, no ischemia or petechiae, edema (2+ bilaterally) Neurologic: non-focal exam (grossly), pupils equal and round, other (lethargic ) Psychiatric: other (flat affect) CBC and BMP: 05/04/22 04:26 05/04/22 04:26 ABG, PT/INR, D-dimer: ABG ABG pH 7.547 pH Units (7.350-7.450) H 05/04/22 05:40 ABG pCO2 32.0 mm Hg 05/04/22 05:40 ABG pO2 141.7 mm Hg (80.0-90.0) H 05/04/22 05:40 ABG O2 Saturation 99.0 % (95.0-99.0) 05/04/22 05:40 PT/INR, D-dimer PT 17.6 Sec. (12.2-14.9) H 05/04/22 04:26 INR 1.29 (0.87-1.13) H 05/04/22 04:26 Abnormal lab findings: Abnormal Labs 04/19/22 04/19/22 04/19/22 04:53 04:53 04:53 WBC RBC 3.06 L Hgb 8.6 L Hct 28.0 L RDW 16.3 H Elliott % (Auto) 11.3 H Lymph # (Auto) PT INR APTT Heparin Anti-Xa Level ABG pH ABG pO2 ABG HCO3 ABG Base Excess ABG Hemoglobin Oxyhemoglobin Sodium Potassium 5.1 H Chloride Carbon Dioxide 21 L BUN 94 H Creatinine 6.3 H Glucose POC Glucose Phosphorus Magnesium Troponin T 0.415 H* Albumin 2.7 L Free T4 0.28 L Crossmatch 04/19/22 04/19/22 04/20/22 19:40 19:40 05:30 WBC 4.1 L RBC 2.97 L Hgb 8.5 L 8.2 L Hct 27.8 L 27.1 L RDW 17.0 H Elliott % (Auto) 15.2 H Lymph # (Auto) 1.1 L PT 17.9 H INR 1.28 H APTT 199.1 H* Heparin Anti-Xa Level ABG pH ABG pO2 ABG HCO3 ABG Base Excess ABG Hemoglobin Oxyhemoglobin Sodium Potassium Chloride Carbon Dioxide BUN Creatinine Glucose POC Glucose Phosphorus Magnesium Troponin T Albumin Free T4 Crossmatch 04/20/22 04/20/22 04/21/22 05:30 18:23 00:29 WBC RBC Hgb Hct RDW Elliott % (Auto) Lymph # (Auto) PT INR APTT Heparin Anti-Xa Level 0.17 L ABG pH ABG pO2 ABG HCO3 ABG Base Excess ABG Hemoglobin Oxyhemoglobin Sodium Potassium Chloride Carbon Dioxide 21 L BUN 95 H Creatinine 6.6 H Glucose 139 H POC Glucose Phosphorus Magnesium 2.60 H Troponin T Albumin 2.4 L Free T4 Crossmatch 04/21/22 04/21/22 04/22/22 04:00 04:00 03:45 WBC RBC 2.74 L Hgb 7.7 L Hct 24.7 L RDW 16.6 H Elliott % (Auto) Lymph # (Auto) PT INR APTT Heparin Anti-Xa Level < 0.10 L ABG pH ABG pO2 ABG HCO3 ABG Base Excess ABG Hemoglobin Oxyhemoglobin Sodium 133 L Potassium Chloride Carbon Dioxide 20 L BUN 89 H Creatinine 6.6 H Glucose 131 H POC Glucose Phosphorus 6.40 H Magnesium 2.50 H Troponin T Albumin Free T4 Crossmatch 04/22/22 04/22/22 04/22/22 03:45 12:13 14:30 WBC RBC Hgb Hct RDW Elliott % (Auto) Lymph # (Auto) PT INR APTT Heparin Anti-Xa Level 0.11 L 0.11 L ABG pH ABG pO2 ABG HCO3 ABG Base Excess ABG Hemoglobin Oxyhemoglobin Sodium 136 L Potassium Chloride Carbon Dioxide 18 L BUN 90 H Creatinine 6.3 H Glucose 121 H POC Glucose Phosphorus 6.50 H Magnesium Troponin T Albumin Free T4 Crossmatch 04/22/22 04/23/22 04/23/22 23:08 02:17 04:10 WBC RBC Hgb 7.3 L Hct 23.3 L RDW Elliott % (Auto) Lymph # (Auto) PT INR APTT Heparin Anti-Xa Level 0.14 L ABG pH ABG pO2 ABG HCO3 ABG Base Excess ABG Hemoglobin Oxyhemoglobin Sodium Potassium Chloride Carbon Dioxide BUN Creatinine Glucose POC Glucose 153 H Phosphorus Magnesium Troponin T Albumin Free T4 Crossmatch 04/23/22 04/23/22 04/23/22 04:10 06:09 23:22 WBC RBC Hgb Hct RDW Elliott % (Auto) Lymph # (Auto) PT INR APTT Heparin Anti-Xa Level ABG pH ABG pO2 ABG HCO3 ABG Base Excess ABG Hemoglobin Oxyhemoglobin Sodium Potassium Chloride Carbon Dioxide BUN 36 H Creatinine 3.4 H Glucose 131 H POC Glucose 141 H 114 H Phosphorus Magnesium Troponin T Albumin Free T4 Crossmatch 04/24/22 04/24/22 04/24/22 02:10 04:00 04:00 WBC RBC 2.48 L Hgb 7.1 L Hct 22.6 L RDW 16.9 H Elliott % (Auto) Lymph # (Auto) PT INR APTT Heparin Anti-Xa Level 0.12 L ABG pH ABG pO2 ABG HCO3 ABG Base Excess ABG Hemoglobin Oxyhemoglobin Sodium 134 L Potassium Chloride Carbon Dioxide BUN 42 H Creatinine 3.9 H Glucose 141 H POC Glucose Phosphorus Magnesium Troponin T Albumin Free T4 Crossmatch 04/24/22 04/24/22 04/24/22 05:03 10:20 11:24 WBC RBC Hgb Hct RDW Elliott % (Auto) Lymph # (Auto) PT INR APTT Heparin Anti-Xa Level < 0.10 L ABG pH ABG pO2 ABG HCO3 ABG Base Excess ABG Hemoglobin Oxyhemoglobin Sodium Potassium Chloride Carbon Dioxide BUN Creatinine Glucose POC Glucose 142 H 144 H Phosphorus Magnesium Troponin T Albumin Free T4 Crossmatch 04/25/22 04/25/22 04/25/22 00:15 04:11 04:11 WBC 4.4 L RBC 2.38 L Hgb 6.7 L Hct 21.7 L RDW 17.2 H Elliott % (Auto) Lymph # (Auto) PT INR APTT Heparin Anti-Xa Level ABG pH ABG pO2 ABG HCO3 ABG Base Excess ABG Hemoglobin Oxyhemoglobin Sodium 134 L Potassium Chloride 97.1 L Carbon Dioxide BUN 47 H Creatinine 4.3 H Glucose 106 H POC Glucose 136 H Phosphorus Magnesium Troponin T Albumin Free T4 Crossmatch 04/25/22 04/25/22 04/25/22 06:01 15:30 22:44 WBC RBC Hgb 8.8 L Hct 28.1 L D RDW Elliott % (Auto) Lymph # (Auto) PT INR APTT Heparin Anti-Xa Level ABG pH ABG pO2 ABG HCO3 ABG Base Excess ABG Hemoglobin Oxyhemoglobin Sodium Potassium Chloride Carbon Dioxide BUN Creatinine Glucose POC Glucose 137 H Phosphorus Magnesium Troponin T Albumin Free T4 Crossmatch See Detail 04/26/22 04/27/22 04/27/22 04:20 04:45 04:45 WBC RBC 2.81 L 3.13 L Hgb 8.0 L 9.0 L Hct 25.4 L 29.1 L RDW 16.2 H 17.4 H Elliott % (Auto) Lymph # (Auto) PT INR APTT Heparin Anti-Xa Level ABG pH ABG pO2 ABG HCO3 ABG Base Excess ABG Hemoglobin Oxyhemoglobin Sodium 131 L Potassium Chloride 93.5 L Carbon Dioxide BUN 44 H Creatinine 3.9 H Glucose 135 H POC Glucose Phosphorus Magnesium Troponin T Albumin Free T4 Crossmatch 04/27/22 04/28/22 04/28/22 23:38 05:26 07:54 WBC 11.1 H RBC 2.40 L Hgb 6.9 L Hct 22.1 L D RDW 17.2 H Elliott % (Auto) Lymph # (Auto) PT INR APTT Heparin Anti-Xa Level ABG pH ABG pO2 ABG HCO3 ABG Base Excess ABG Hemoglobin Oxyhemoglobin Sodium Potassium Chloride Carbon Dioxide BUN Creatinine Glucose POC Glucose 229 H 169 H Phosphorus Magnesium Troponin T Albumin Free T4 Crossmatch 04/28/22 04/28/22 04/29/22 12:31 17:54 00:49 WBC RBC Hgb Hct RDW Elliott % (Auto) Lymph # (Auto) PT INR APTT Heparin Anti-Xa Level ABG pH ABG pO2 ABG HCO3 ABG Base Excess ABG Hemoglobin Oxyhemoglobin Sodium Potassium Chloride Carbon Dioxide BUN Creatinine Glucose POC Glucose 132 H 138 H 189 H Phosphorus Magnesium Troponin T Albumin Free T4 Crossmatch 04/29/22 04/29/22 04/29/22 06:42 10:54 10:54 WBC 11.8 H RBC 2.93 L Hgb 8.6 L Hct 26.2 L RDW 16.8 H Elliott % (Auto) Lymph # (Auto) PT INR APTT Heparin Anti-Xa Level ABG pH ABG pO2 ABG HCO3 ABG Base Excess ABG Hemoglobin Oxyhemoglobin Sodium 129 L Potassium Chloride 91.5 L Carbon Dioxide BUN 46 H Creatinine 3.1 H Glucose 180 H POC Glucose 196 H Phosphorus Magnesium Troponin T Albumin Free T4 Crossmatch 04/29/22 04/29/22 04/30/22 12:03 23:32 05:57 WBC RBC Hgb Hct RDW Elliott % (Auto) Lymph # (Auto) PT INR APTT Heparin Anti-Xa Level ABG pH ABG pO2 ABG HCO3 ABG Base Excess ABG Hemoglobin Oxyhemoglobin Sodium Potassium Chloride Carbon Dioxide BUN Creatinine Glucose POC Glucose 169 H 170 H 151 H Phosphorus Magnesium Troponin T Albumin Free T4 Crossmatch 04/30/22 04/30/22 04/30/22 11:28 16:39 23:22 WBC RBC Hgb Hct RDW Elliott % (Auto) Lymph # (Auto) PT INR APTT Heparin Anti-Xa Level ABG pH ABG pO2 ABG HCO3 ABG Base Excess ABG Hemoglobin Oxyhemoglobin Sodium Potassium Chloride Carbon Dioxide BUN Creatinine Glucose POC Glucose 159 H 147 H 170 H Phosphorus Magnesium Troponin T Albumin Free T4 Crossmatch 05/01/22 05/01/22 05/01/22 04:00 05:34 15:23 WBC RBC 2.92 L Hgb 8.4 L Hct 26.7 L RDW 16.6 H Elliott % (Auto) Lymph # (Auto) PT INR APTT Heparin Anti-Xa Level ABG pH ABG pO2 74.2 L ABG HCO3 27.8 H ABG Base Excess ABG Hemoglobin 8.7 L Oxyhemoglobin 94.5 L Sodium Potassium Chloride Carbon Dioxide BUN Creatinine Glucose POC Glucose 140 H Phosphorus Magnesium Troponin T Albumin Free T4 Crossmatch 05/02/22 05/02/22 05/02/22 05:54 05:54 05:54 WBC RBC 2.85 L Hgb 8.3 L Hct 25.9 L RDW 16.5 H Elliott % (Auto) Lymph # (Auto) PT INR APTT Heparin Anti-Xa Level ABG pH ABG pO2 ABG HCO3 ABG Base Excess ABG Hemoglobin Oxyhemoglobin Sodium 130 L 128 L Potassium Chloride 90.9 L 90.0 L Carbon Dioxide BUN 49 H 49 H Creatinine 3.7 H 3.8 H Glucose 191 H 184 H POC Glucose Phosphorus Magnesium Troponin T Albumin Free T4 Crossmatch 05/02/22 05/03/22 05/03/22 14:15 04:24 04:24 WBC RBC 2.71 L Hgb 7.8 L Hct 24.8 L RDW 16.6 H Elliott % (Auto) Lymph # (Auto) PT INR APTT 39.4 H Heparin Anti-Xa Level ABG pH ABG pO2 ABG HCO3 29.1 H ABG Base Excess 4.3 H ABG Hemoglobin 8.4 L Oxyhemoglobin 94.8 L Sodium Potassium Chloride Carbon Dioxide BUN Creatinine Glucose POC Glucose Phosphorus Magnesium Troponin T Albumin Free T4 Crossmatch 05/03/22 05/03/22 05/03/22 04:24 15:17 17:30 WBC RBC Hgb Hct RDW Elliott % (Auto) Lymph # (Auto) PT INR APTT Heparin Anti-Xa Level ABG pH 7.577 H ABG pO2 140.4 H ABG HCO3 26.4 H ABG Base Excess 4.0 H ABG Hemoglobin 5.4 L Oxyhemoglobin Sodium 132 L Potassium Chloride 93.0 L Carbon Dioxide BUN 31 H Creatinine 2.8 H Glucose 119 H POC Glucose 60 L Phosphorus 2.10 L Magnesium Troponin T Albumin Free T4 Crossmatch 05/03/22 05/04/22 05/04/22 23:33 04:26 04:26 WBC 16.0 H RBC 2.39 L Hgb 6.9 L Hct 21.4 L RDW 15.8 H Elliott % (Auto) Lymph # (Auto) PT INR APTT Heparin Anti-Xa Level ABG pH ABG pO2 ABG HCO3 ABG Base Excess ABG Hemoglobin Oxyhemoglobin Sodium 133 L Potassium Chloride 94.8 L Carbon Dioxide BUN 34 H Creatinine 3.5 H Glucose 175 H POC Glucose 106 H Phosphorus Magnesium Troponin T Albumin Free T4 Crossmatch 05/04/22 05/04/22 05/04/22 04:26 05:30 05:40 WBC RBC Hgb Hct RDW Elliott % (Auto) Lymph # (Auto) PT 17.6 H INR 1.29 H APTT Heparin Anti-Xa Level ABG pH 7.547 H ABG pO2 141.7 H ABG HCO3 27.2 H ABG Base Excess 5.3 H ABG Hemoglobin 6.9 L Oxyhemoglobin Sodium Potassium Chloride Carbon Dioxide BUN Creatinine Glucose POC Glucose Phosphorus Magnesium Troponin T Albumin Free T4 Crossmatch See Detail 05/04/22 05:41 WBC RBC Hgb Hct RDW Elliott % (Auto) Lymph # (Auto) PT INR APTT Heparin Anti-Xa Level ABG pH ABG pO2 ABG HCO3 ABG Base Excess ABG Hemoglobin Oxyhemoglobin Sodium Potassium Chloride Carbon Dioxide BUN Creatinine Glucose POC Glucose 177 H Phosphorus Magnesium Troponin T Albumin Free T4 Crossmatch Chest x-ray: image reviewed (bibasilar predominant infiltrates) Allied health notes reviewed: nursing
--- NOTE | 2022-05-04 13:17 | Progress Note ---
Assessment and Plan Impression: * End stage renal disease * Acute hypoxic respiratory failure * AMS * SVT s/p cardioversion * SIRS * NSTEMI * Hypotension * Anemia secondary to ESRD * Secondary hyperparathyroidism * IJ thrombus Plan: * Continue hemodialysis // provided patient is hemodynamically stable. BP within acceptable range today. Will attempt UF with next session if bp permits. * Dose medications for renal function * cardiology/pulmonary notes reviewed, appreciated * appreciate vascular regarding AVG * continue midodrine given soft BP * keep MAP>65, vasopressors prn * Avoid potential nephrotoxins * Epogen TIW prn * Renal/HD diet * Continue binders prn Subjective Date of service: 05/04/22 Principal diagnosis: AHRF; Shock; AMS; SVT; NSTEMI; ESRD; Protein calorie malnutrition Interval history: Seen in ICU. Remains intubated. Seen during HD. Objective - Exam Narrative Exam: General: Sedated. Intubated. Head: NC/AT Eyes: normal appearance Neck: Normal appearance Chest: Intubated CV: Regular rate and rhythm, right arm dialysis access Abdomen: Soft, normal bowel sounds, nontender, nondistended Neuro: Sedated - Vital Signs Vital signs: Vital Signs - 12hr 05/04/22 05/04/22 05/04/22 01:30 01:45 02:00 Temperature Pulse Rate 89 99 H 100 H Pulse Rate [ Anterior Bilateral Throughout] Pulse Rate [ From Monitor] Respiratory 14 14 14 Rate Respiratory Rate [Anterior Bilateral Throughout] Blood Pressure 105/47 106/53 105/52 O2 Sat by Pulse 100 100 100 Oximetry O2 Sat by Pulse Oximetry [ Anterior Bilateral Throughout] 05/04/22 05/04/22 05/04/22 02:15 02:30 02:45 Temperature Pulse Rate 96 H 103 H Pulse Rate [ Anterior Bilateral Throughout] Pulse Rate [ From Monitor] Respiratory 14 14 Rate Respiratory Rate [Anterior Bilateral Throughout] Blood Pressure 104/52 104/52 114/54 O2 Sat by Pulse 100 100 100 Oximetry O2 Sat by Pulse Oximetry [ Anterior Bilateral Throughout] 05/04/22 05/04/22 05/04/22 03:00 03:16 03:30 Temperature Pulse Rate 97 H 109 H 102 H Pulse Rate [ Anterior Bilateral Throughout] Pulse Rate [ From Monitor] Respiratory 14 18 15 Rate Respiratory Rate [Anterior Bilateral Throughout] Blood Pressure 106/50 107/69 118/61 O2 Sat by Pulse 100 100 100 Oximetry O2 Sat by Pulse Oximetry [ Anterior Bilateral Throughout] 05/04/22 05/04/22 05/04/22 03:45 04:00 04:15 Temperature 98.8 F Pulse Rate 93 H 94 H 87 Pulse Rate [ Anterior Bilateral Throughout] Pulse Rate [ From Monitor] Respiratory 14 14 14 Rate Respiratory Rate [Anterior Bilateral Throughout] Blood Pressure 118/51 109/49 112/49 O2 Sat by Pulse 100 100 100 Oximetry O2 Sat by Pulse Oximetry [ Anterior Bilateral Throughout] 05/04/22 05/04/22 05/04/22 04:30 04:45 05:00 Temperature Pulse Rate 85 84 81 Pulse Rate [ Anterior Bilateral Throughout] Pulse Rate [ From Monitor] Respiratory 14 14 14 Rate Respiratory Rate [Anterior Bilateral Throughout] Blood Pressure 100/48 105/54 118/52 O2 Sat by Pulse 100 100 100 Oximetry O2 Sat by Pulse Oximetry [ Anterior Bilateral Throughout] 05/04/22 05/04/22 05/04/22 05:15 05:30 05:42 Temperature Pulse Rate 85 88 85 Pulse Rate [ Anterior Bilateral Throughout] Pulse Rate [ From Monitor] Respiratory 14 14 Rate Respiratory Rate [Anterior Bilateral Throughout] Blood Pressure 116/56 116/56 75/48 O2 Sat by Pulse 100 100 100 Oximetry O2 Sat by Pulse Oximetry [ Anterior Bilateral Throughout] 05/04/22 05/04/22 05/04/22 05:45 06:00 06:15 Temperature Pulse Rate 86 88 92 H Pulse Rate [ Anterior Bilateral Throughout] Pulse Rate [ From Monitor] Respiratory 14 15 18 Rate Respiratory Rate [Anterior Bilateral Throughout] Blood Pressure 119/59 100/45 118/51 O2 Sat by Pulse 100 100 100 Oximetry O2 Sat by Pulse Oximetry [ Anterior Bilateral Throughout] 05/04/22 05/04/22 05/04/22 06:20 06:26 06:30 Temperature Pulse Rate 89 96 H 86 Pulse Rate [ Anterior Bilateral Throughout] Pulse Rate [ From Monitor] Respiratory 11 L 18 14 Rate Respiratory Rate [Anterior Bilateral Throughout] Blood Pressure 118/51 118/51 115/43 O2 Sat by Pulse 100 100 100 Oximetry O2 Sat by Pulse Oximetry [ Anterior Bilateral Throughout] 05/04/22 05/04/22 05/04/22 06:36 06:40 06:45 Temperature Pulse Rate 86 82 82 Pulse Rate [ Anterior Bilateral Throughout] Pulse Rate [ From Monitor] Respiratory 14 14 14 Rate Respiratory Rate [Anterior Bilateral Throughout] Blood Pressure 115/43 118/51 116/46 O2 Sat by Pulse 100 100 100 Oximetry O2 Sat by Pulse Oximetry [ Anterior Bilateral Throughout] 05/04/22 05/04/22 05/04/22 06:50 06:56 07:00 Temperature Pulse Rate 80 81 82 Pulse Rate [ Anterior Bilateral Throughout] Pulse Rate [ From Monitor] Respiratory 14 14 14 Rate Respiratory Rate [Anterior Bilateral Throughout] Blood Pressure 116/46 116/46 112/39 O2 Sat by Pulse 100 100 100 Oximetry O2 Sat by Pulse Oximetry [ Anterior Bilateral Throughout] 05/04/22 05/04/22 05/04/22 07:06 07:10 07:15 Temperature Pulse Rate 81 82 80 Pulse Rate [ Anterior Bilateral Throughout] Pulse Rate [ From Monitor] Respiratory 14 14 14 Rate Respiratory Rate [Anterior Bilateral Throughout] Blood Pressure 112/39 115/43 114/46 O2 Sat by Pulse 100 100 100 Oximetry O2 Sat by Pulse Oximetry [ Anterior Bilateral Throughout] 05/04/22 05/04/22 05/04/22 07:20 07:26 07:30 Temperature Pulse Rate 84 83 84 Pulse Rate [ Anterior Bilateral Throughout] Pulse Rate [ From Monitor] Respiratory 14 14 14 Rate Respiratory Rate [Anterior Bilateral Throughout] Blood Pressure 114/46 114/46 118/44 O2 Sat by Pulse 100 100 100 Oximetry O2 Sat by Pulse Oximetry [ Anterior Bilateral Throughout] 05/04/22 05/04/22 05/04/22 07:36 07:40 07:42 Temperature Pulse Rate 81 84 86 Pulse Rate [ Anterior Bilateral Throughout] Pulse Rate [ From Monitor] Respiratory 14 14 Rate Respiratory Rate [Anterior Bilateral Throughout] Blood Pressure 118/44 114/46 118/44 O2 Sat by Pulse 100 100 100 Oximetry O2 Sat by Pulse Oximetry [ Anterior Bilateral Throughout] 05/04/22 05/04/22 05/04/22 07:46 07:50 07:56 Temperature 98.8 F Pulse Rate 93 H 92 H 86 Pulse Rate [ 84 Anterior Bilateral Throughout] Pulse Rate [ From Monitor] Respiratory 12 14 14 Rate Respiratory 14 Rate [Anterior Bilateral Throughout] Blood Pressure 107/46 107/46 107/46 O2 Sat by Pulse 100 100 100 Oximetry O2 Sat by Pulse Oximetry [ Anterior Bilateral Throughout] 05/04/22 05/04/22 05/04/22 08:00 08:06 08:10 Temperature 98.8 F Pulse Rate 87 88 87 Pulse Rate [ Anterior Bilateral Throughout] Pulse Rate [ 83 From Monitor] Respiratory 14 14 14 Rate Respiratory Rate [Anterior Bilateral Throughout] Blood Pressure 117/48 117/48 117/48 O2 Sat by Pulse 100 100 100 Oximetry O2 Sat by Pulse Oximetry [ Anterior Bilateral Throughout] 05/04/22 05/04/22 05/04/22 08:16 08:20 08:25 Temperature Pulse Rate 97 H 94 H 87 Pulse Rate [ Anterior Bilateral Throughout] Pulse Rate [ From Monitor] Respiratory 14 14 14 Rate Respiratory Rate [Anterior Bilateral Throughout] Blood Pressure 112/56 112/54 113/51 O2 Sat by Pulse 100 100 100 Oximetry O2 Sat by Pulse Oximetry [ Anterior Bilateral Throughout] 05/04/22 05/04/22 05/04/22 08:26 08:30 08:35 Temperature 98.6 F Pulse Rate 86 86 85 Pulse Rate [ Anterior Bilateral Throughout] Pulse Rate [ From Monitor] Respiratory 17 14 14 Rate Respiratory Rate [Anterior Bilateral Throughout] Blood Pressure 113/51 121/53 112/36 O2 Sat by Pulse 100 100 100 Oximetry O2 Sat by Pulse Oximetry [ Anterior Bilateral Throughout] 05/04/22 05/04/22 05/04/22 08:40 08:45 08:50 Temperature Pulse Rate 85 82 86 Pulse Rate [ Anterior Bilateral Throughout] Pulse Rate [ From Monitor] Respiratory 14 14 14 Rate Respiratory Rate [Anterior Bilateral Throughout] Blood Pressure 116/39 125/42 121/39 O2 Sat by Pulse 100 100 100 Oximetry O2 Sat by Pulse Oximetry [ Anterior Bilateral Throughout] 05/04/22 05/04/22 05/04/22 09:00 09:15 09:30 Temperature Pulse Rate 88 87 86 Pulse Rate [ Anterior Bilateral Throughout] Pulse Rate [ From Monitor] Respiratory 14 14 14 Rate Respiratory Rate [Anterior Bilateral Throughout] Blood Pressure 117/46 123/40 115/41 O2 Sat by Pulse 100 100 100 Oximetry O2 Sat by Pulse Oximetry [ Anterior Bilateral Throughout] 05/04/22 05/04/22 05/04/22 09:45 10:00 10:15 Temperature 98.2 F Pulse Rate 85 84 82 Pulse Rate [ Anterior Bilateral Throughout] Pulse Rate [ From Monitor] Respiratory 14 14 Rate Respiratory Rate [Anterior Bilateral Throughout] Blood Pressure 126/43 141/39 138/45 O2 Sat by Pulse 100 100 Oximetry O2 Sat by Pulse 100 Oximetry [ Anterior Bilateral Throughout] 05/04/22 05/04/22 05/04/22 10:16 10:30 10:45 Temperature 98.2 F 98.2 F Pulse Rate 85 111 H 98 H Pulse Rate [ Anterior Bilateral Throughout] Pulse Rate [ From Monitor] Respiratory 14 14 14 Rate Respiratory Rate [Anterior Bilateral Throughout] Blood Pressure 138/45 138/45 104/50 O2 Sat by Pulse 100 98 100 Oximetry O2 Sat by Pulse Oximetry [ Anterior Bilateral Throughout] 05/04/22 05/04/22 05/04/22 11:00 11:15 11:30 Temperature 99.0 F 99.1 F Pulse Rate 81 86 90 Pulse Rate [ Anterior Bilateral Throughout] Pulse Rate [ From Monitor] Respiratory 14 14 14 Rate Respiratory Rate [Anterior Bilateral Throughout] Blood Pressure 125/48 119/39 106/53 O2 Sat by Pulse 100 100 100 Oximetry O2 Sat by Pulse Oximetry [ Anterior Bilateral Throughout] 05/04/22 05/04/22 05/04/22 11:45 11:46 12:00 Temperature Pulse Rate 100 H 98 H 106 H Pulse Rate [ Anterior Bilateral Throughout] Pulse Rate [ From Monitor] Respiratory 13 16 Rate Respiratory Rate [Anterior Bilateral Throughout] Blood Pressure 113/59 113/59 113/59 O2 Sat by Pulse 100 100 Oximetry O2 Sat by Pulse Oximetry [ Anterior Bilateral Throughout] 05/04/22 05/04/22 05/04/22 12:15 12:30 12:45 Temperature Pulse Rate 93 H 105 H 96 H Pulse Rate [ Anterior Bilateral Throughout] Pulse Rate [ From Monitor] Respiratory 14 14 14 Rate Respiratory Rate [Anterior Bilateral Throughout] Blood Pressure 98/47 132/76 102/46 O2 Sat by Pulse 100 100 100 Oximetry O2 Sat by Pulse Oximetry [ Anterior Bilateral Throughout] 05/04/22 13:00 Temperature Pulse Rate 92 H Pulse Rate [ Anterior Bilateral Throughout] Pulse Rate [ From Monitor] Respiratory Rate Respiratory Rate [Anterior Bilateral Throughout] Blood Pressure 111/57 O2 Sat by Pulse Oximetry O2 Sat by Pulse Oximetry [ Anterior Bilateral Throughout] - Lab 05/04/22 04:26 05/04/22 04:26 Most recent lab results ABG pH 7.547 pH Units (7.350-7.450) H 05/04/22 05:40 ABG pCO2 32.0 mm Hg 05/04/22 05:40 ABG pO2 141.7 mm Hg (80.0-90.0) H 05/04/22 05:40 ABG HCO3 27.2 mmol/L (20.0-26.0) H 05/04/22 05:40 ABG O2 Saturation 99.0 % (95.0-99.0) 05/04/22 05:40 Calcium 9.1 mg/dL (8.4-10.2) 05/04/22 04:26 Phosphorus 2.10 mg/dL (2.5-4.5) L 05/03/22 04:24 Magnesium 2.20 mg/dL (1.7-2.3) 05/03/22 04:24 Medications & Allergies - Medications Allergies/Adverse Reactions: Allergies buspirone [From BuSpar] Allergy (Verified 04/18/22 12:22) Unknown Penicillins Allergy (Verified 04/18/22 12:22) Rash corn Adverse Reaction (Verified 04/18/22 12:22) Unknown Home Medications: Home Medications Medication Instructions Recorded Confirmed Last Taken Type Sevelamer Carbonate [Renvela] 0.8 gram PO TIDWM 09/02/20 02/02/22 05/31/21 History HYDROcodone/APAP 5-325 [[place] 1 each PO Q4HR PRN #30 tablet 05/18/21 02/02/22 Unknown Rx 5-325 mg TAB] ALBUTEROL NEB's [Proventil 0.083% 2.5 mg IH Q3HRT PRN #1 nebu 03/03/22 Unknown Rx NEBS] Clopidogrel [Plavix] 75 mg PO QDAY #90 tablet 03/03/22 Unknown Rx Divalproex [Sarina Serrano] 750 mg PO BID #60 tablet 03/03/22 Unknown Rx LORazepam [Ativan] 1 mg PO DAILY #30 tab 03/03/22 Unknown Rx Memantine Xr [Namenda Xr] 5 mg PO DAILY #30 cap 03/03/22 Unknown Rx Midodrine [Proamatine] 10 mg PO TID #90 tab 03/03/22 Unknown Rx Pantoprazole [Protonix TAB] 40 mg PO DAILY #30 tab 03/03/22 Unknown Rx QUEtiapine [SEROquel] 400 mg PO BID #60 tab 03/03/22 Unknown Rx risperiDONE [RisperDAL] 0.5 mg PO BID #60 tab 03/03/22 Unknown Rx Active Medications: Generic Name Dose Route Start Last Admin Trade Name Freq PRN Reason Stop Dose Admin Acetaminophen 650 mg 04/22/22 20:12 05/03/22 23:41 Acetaminophen 325 Mg/10.15 Ml Oral Liqd Unit Dose PO 650 mg Q6H PRN Administration Pain MILD(1-3)/Fever >100.5/DRAKE Acetylcysteine 100 mg 05/03/22 20:00 05/04/22 07:41 Acetylcysteine 10% 100 Mg/1 Ml *For Inhalation Use* INHALATION Not Given Q12HRT CONNOR Albumin Human 25 gm 04/21/22 13:00 04/22/22 16:31 Albumin Human 25% (25 Gm/100 Ml) Inj IV 25 gm BIANCA PRN Administration Hypotension Albuterol 2.5 mg 04/21/22 08:30 04/24/22 16:51 Albuterol 2.5 Mg/3 Ml Nebu IH 2.5 mg Q3HRT PRN Administration Shortness Of Breath Albuterol/Ipratropium 1 ampul 04/21/22 14:00 05/04/22 07:42 Ipratropium/Albuterol Sulfate 3 Ml Ampul.Neb IH 1 ampul TIDRT CONNOR Administration Bisacodyl 10 mg 05/04/22 10:00 Bisacodyl 10 Mg Rect Supp MO 05/06/22 09:59 QDAY CONNOR Docusate Sodium 100 mg 05/01/22 22:00 05/03/22 21:13 Docusate Sodium 100 Mg/10 Ml Oral Liqd FEEDTUBE 100 mg BID CONNOR Administration Epoetin Lb-epbx 20,000 unit 04/23/22 12:00 05/02/22 12:30 Epoetin Lb-Epbx 20,000 Unit/1 Ml Vial IV 20,000 unit BIANCA PRN Administration HEMODIALYSIS Fentanyl 50 mcg 05/03/22 10:29 Fentanyl 100 Mcg/2 Ml Inj IV Q10MIN PRN ANALGESIA Sodium Chloride 100 mls @ 999 mls/hr 04/22/22 09:12 Nacl 0.9% IV BIANCA PRN Hypotension Fentanyl Citrate 2,000 mcg in 100 mls @ 2.722 mls/hr 05/03/22 11:00 Fentanyl Drip Premix IV TITR CONNOR Protocol 1 MCG/KG/HR NORepinephrine/NS 8 MG-250 ML 8 mg in 250 mls @ 3.75 mls/hr 05/03/22 13:15 05/04/22 10:15 Norepinephrine/Ns 8 Mg-250 Ml (Double Conc) IV 10 mcg/min TITRATE CONNOR 18.75 mls/hr Titration Protocol 2 MCG/MIN Vasopressin 20 unit/ Sodium 101 mls @ 9.09 mls/hr 05/04/22 00:30 05/04/22 10:12 Chloride IV 0.03 units/min TITR CONNOR 9.09 mls/hr Administration 0.03 UNITS/MIN Lansoprazole 30 mg 04/23/22 10:00 05/03/22 10:15 Lansoprazole 30 Mg Solutab FEEDTUBE 30 mg QDAY CONNOR Administration Lorazepam 0.5 mg 04/25/22 09:59 Lorazepam 0.5 Mg Tab FEEDTUBE QDAY PRN Anxiety Memantine 5 mg 04/25/22 10:00 05/03/22 21:14 Memantine 5 Mg Tab FEEDTUBE 5 mg BID CONNOR Administration Metoclopramide HCl 5 mg 04/19/22 09:55 Metoclopramide 10 Mg/2 Ml Inj IV Q6H PRN Nausea And Vomiting Midodrine 20 mg 04/26/22 14:00 05/04/22 08:00 Midodrine 10 Mg Tab FEEDTUBE Not Given TID CONNOR Naloxone HCl 0.1 mg 04/19/22 09:55 Naloxone 0.4 Mg/1 Ml Inj IV Q2MIN PRN Res Rate </= 8 or 02 SAT < 92% Oxymetazoline HCl 2 spray 05/01/22 15:05 Oxymetazoline 0.05% Nasal [place] NS 05/04/22 15:04 Q12H PRN Nasal Congestion Polyethylene Glycol 17 gm 05/03/22 10:00 05/03/22 10:14 Polyethylene Glycol 3350 17 Gm Powder FEEDTUBE Not Given QDAY CONNOR Risperidone 0.5 mg 04/25/22 11:00 05/03/22 21:13 Risperidone 1 Mg Tab FEEDTUBE 0.5 mg BID CONNOR Administration Scopolamine 1 each 05/02/22 10:00 05/02/22 09:50 Scopolamine Transdermal Patch 72 Hr TD 1 each Q3D CONNOR Administration Senna 17.2 mg 04/23/22 10:00 05/03/22 21:13 Sennosides 8.6 Mg Tab FEEDTUBE 17.2 mg BID CONNOR Administration Sodium Chloride 10 ml 04/19/22 12:00 05/03/22 21:20 Sodium Chloride 0.9% 10 Ml Flush Syringe IV 10 ml BID CONNOR Administration Sodium Chloride 10 ml 04/19/22 11:19 Sodium Chloride 0.9% 10 Ml Flush Syringe IV PRN PRN LINE FLUSH Valproic Acid 750 mg 04/22/22 22:00 05/03/22 21:13 Valproic Acid 250 Mg/5 Ml Oral Liqd FEEDTUBE 750 mg BID CONNOR Administration
[2022-05-04] MEDS: EPOETIN ALFA-EPBX 20,000 UNIT/1 ML VIAL IV PRN (13:19)
[2022-05-04] MEDS: LANSOPRAZOLE 30 MG SOLUTAB FEEDTUBE SCH (13:29)
[2022-05-04] MEDS: risperiDONE 1 MG TAB FEEDTUBE SCH ×2 (13:29→21:10)
[2022-05-04] MEDS: MEMANTINE 5 MG TAB FEEDTUBE SCH ×2 (13:29→21:10)
[2022-05-04] MEDS: SENNOSIDES 8.6 MG TAB FEEDTUBE SCH ×2 (13:29→21:09)
[2022-05-04] MEDS: POLYETHYLENE GLYCOL 3350 17 GM POWDER FEEDTUBE SCH (13:30)
--- NOTE | 2022-05-04 13:33 | Progress Note ---
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 Will plan on her fistulogram when the patient is more stable. Subjective Date of service: 05/04/22 Principal diagnosis: AHRF; Shock; AMS; SVT; NSTEMI; ESRD; Protein calorie malnutrition Interval history: Patient intubated, nonresponsive, receiving dialysis through right upper arm fistula. Objective - Constitutional Vitals: Vital Signs - 12hr 05/04/22 05/04/22 05/04/22 01:45 02:00 02:15 Temperature Pulse Rate 99 H 100 H 96 H Pulse Rate [ Anterior Bilateral Throughout] Pulse Rate [ From Monitor] Respiratory 14 14 14 Rate Respiratory Rate [Anterior Bilateral Throughout] Blood Pressure 106/53 105/52 104/52 O2 Sat by Pulse 100 100 100 Oximetry O2 Sat by Pulse Oximetry [ Anterior Bilateral Throughout] 05/04/22 05/04/22 05/04/22 02:30 02:45 03:00 Temperature Pulse Rate 103 H 97 H Pulse Rate [ Anterior Bilateral Throughout] Pulse Rate [ From Monitor] Respiratory 14 14 Rate Respiratory Rate [Anterior Bilateral Throughout] Blood Pressure 104/52 114/54 106/50 O2 Sat by Pulse 100 100 100 Oximetry O2 Sat by Pulse Oximetry [ Anterior Bilateral Throughout] 05/04/22 05/04/22 05/04/22 03:16 03:30 03:45 Temperature Pulse Rate 109 H 102 H 93 H Pulse Rate [ Anterior Bilateral Throughout] Pulse Rate [ From Monitor] Respiratory 18 15 14 Rate Respiratory Rate [Anterior Bilateral Throughout] Blood Pressure 107/69 118/61 118/51 O2 Sat by Pulse 100 100 100 Oximetry O2 Sat by Pulse Oximetry [ Anterior Bilateral Throughout] 05/04/22 05/04/22 05/04/22 04:00 04:15 04:30 Temperature 98.8 F Pulse Rate 94 H 87 85 Pulse Rate [ Anterior Bilateral Throughout] Pulse Rate [ From Monitor] Respiratory 14 14 14 Rate Respiratory Rate [Anterior Bilateral Throughout] Blood Pressure 109/49 112/49 100/48 O2 Sat by Pulse 100 100 100 Oximetry O2 Sat by Pulse Oximetry [ Anterior Bilateral Throughout] 05/04/22 05/04/22 05/04/22 04:45 05:00 05:15 Temperature Pulse Rate 84 81 85 Pulse Rate [ Anterior Bilateral Throughout] Pulse Rate [ From Monitor] Respiratory 14 14 14 Rate Respiratory Rate [Anterior Bilateral Throughout] Blood Pressure 105/54 118/52 116/56 O2 Sat by Pulse 100 100 100 Oximetry O2 Sat by Pulse Oximetry [ Anterior Bilateral Throughout] 05/04/22 05/04/22 05/04/22 05:30 05:42 05:45 Temperature Pulse Rate 88 85 86 Pulse Rate [ Anterior Bilateral Throughout] Pulse Rate [ From Monitor] Respiratory 14 14 Rate Respiratory Rate [Anterior Bilateral Throughout] Blood Pressure 116/56 75/48 119/59 O2 Sat by Pulse 100 100 100 Oximetry O2 Sat by Pulse Oximetry [ Anterior Bilateral Throughout] 05/04/22 05/04/22 05/04/22 06:00 06:15 06:20 Temperature Pulse Rate 88 92 H 89 Pulse Rate [ Anterior Bilateral Throughout] Pulse Rate [ From Monitor] Respiratory 15 18 11 L Rate Respiratory Rate [Anterior Bilateral Throughout] Blood Pressure 100/45 118/51 118/51 O2 Sat by Pulse 100 100 100 Oximetry O2 Sat by Pulse Oximetry [ Anterior Bilateral Throughout] 05/04/22 05/04/22 05/04/22 06:26 06:30 06:36 Temperature Pulse Rate 96 H 86 86 Pulse Rate [ Anterior Bilateral Throughout] Pulse Rate [ From Monitor] Respiratory 18 14 14 Rate Respiratory Rate [Anterior Bilateral Throughout] Blood Pressure 118/51 115/43 115/43 O2 Sat by Pulse 100 100 100 Oximetry O2 Sat by Pulse Oximetry [ Anterior Bilateral Throughout] 05/04/22 05/04/22 05/04/22 06:40 06:45 06:50 Temperature Pulse Rate 82 82 80 Pulse Rate [ Anterior Bilateral Throughout] Pulse Rate [ From Monitor] Respiratory 14 14 14 Rate Respiratory Rate [Anterior Bilateral Throughout] Blood Pressure 118/51 116/46 116/46 O2 Sat by Pulse 100 100 100 Oximetry O2 Sat by Pulse Oximetry [ Anterior Bilateral Throughout] 05/04/22 05/04/22 05/04/22 06:56 07:00 07:06 Temperature Pulse Rate 81 82 81 Pulse Rate [ Anterior Bilateral Throughout] Pulse Rate [ From Monitor] Respiratory 14 14 14 Rate Respiratory Rate [Anterior Bilateral Throughout] Blood Pressure 116/46 112/39 112/39 O2 Sat by Pulse 100 100 100 Oximetry O2 Sat by Pulse Oximetry [ Anterior Bilateral Throughout] 05/04/22 05/04/2222 07:10 07:15 07:20 Temperature Pulse Rate 82 80 84 Pulse Rate [ Anterior Bilateral Throughout] Pulse Rate [ From Monitor] Respiratory 14 14 14 Rate Respiratory Rate [Anterior Bilateral Throughout] Blood Pressure 115/43 114/46 114/46 O2 Sat by Pulse 100 100 100 Oximetry O2 Sat by Pulse Oximetry [ Anterior Bilateral Throughout] 05/04/22 05/04/22 05/04/22 07:26 07:30 07:36 Temperature Pulse Rate 83 84 81 Pulse Rate [ Anterior Bilateral Throughout] Pulse Rate [ From Monitor] Respiratory 14 14 14 Rate Respiratory Rate [Anterior Bilateral Throughout] Blood Pressure 114/46 118/44 118/44 O2 Sat by Pulse 100 100 100 Oximetry O2 Sat by Pulse Oximetry [ Anterior Bilateral Throughout] 05/04/22 05/04/22 05/04/22 07:40 07:42 07:46 Temperature Pulse Rate 84 86 93 H Pulse Rate [ Anterior Bilateral Throughout] Pulse Rate [ From Monitor] Respiratory 14 12 Rate Respiratory Rate [Anterior Bilateral Throughout] Blood Pressure 114/46 118/44 107/46 O2 Sat by Pulse 100 100 100 Oximetry O2 Sat by Pulse Oximetry [ Anterior Bilateral Throughout] 05/04/22 05/04/22 05/04/22 07:50 07:56 08:00 Temperature 98.8 F 98.8 F Pulse Rate 92 H 86 87 Pulse Rate [ 84 Anterior Bilateral Throughout] Pulse Rate [ 83 From Monitor] Respiratory 14 14 14 Rate Respiratory 14 Rate [Anterior Bilateral Throughout] Blood Pressure 107/46 107/46 117/48 O2 Sat by Pulse 100 100 100 Oximetry O2 Sat by Pulse Oximetry [ Anterior Bilateral Throughout] 05/04/22 05/04/22 05/04/22 08:06 08:10 08:16 Temperature Pulse Rate 88 87 97 H Pulse Rate [ Anterior Bilateral Throughout] Pulse Rate [ From Monitor] Respiratory 14 14 14 Rate Respiratory Rate [Anterior Bilateral Throughout] Blood Pressure 117/48 117/48 112/56 O2 Sat by Pulse 100 100 100 Oximetry O2 Sat by Pulse Oximetry [ Anterior Bilateral Throughout] 05/04/22 05/04/22 05/04/22 08:20 08:25 08:26 Temperature 98.6 F Pulse Rate 94 H 87 86 Pulse Rate [ Anterior Bilateral Throughout] Pulse Rate [ From Monitor] Respiratory 14 14 17 Rate Respiratory Rate [Anterior Bilateral Throughout] Blood Pressure 112/54 113/51 113/51 O2 Sat by Pulse 100 100 100 Oximetry O2 Sat by Pulse Oximetry [ Anterior Bilateral Throughout] 05/04/22 05/04/22 05/04/22 08:30 08:35 08:40 Temperature Pulse Rate 86 85 85 Pulse Rate [ Anterior Bilateral Throughout] Pulse Rate [ From Monitor] Respiratory 14 14 14 Rate Respiratory Rate [Anterior Bilateral Throughout] Blood Pressure 121/53 112/36 116/39 O2 Sat by Pulse 100 100 100 Oximetry O2 Sat by Pulse Oximetry [ Anterior Bilateral Throughout] 05/04/22 05/04/22 05/04/22 08:45 08:50 09:00 Temperature Pulse Rate 82 86 88 Pulse Rate [ Anterior Bilateral Throughout] Pulse Rate [ From Monitor] Respiratory 14 14 14 Rate Respiratory Rate [Anterior Bilateral Throughout] Blood Pressure 125/42 121/39 117/46 O2 Sat by Pulse 100 100 100 Oximetry O2 Sat by Pulse Oximetry [ Anterior Bilateral Throughout] 05/04/22 05/04/22 05/04/22 09:15 09:30 09:45 Temperature 98.2 F Pulse Rate 87 86 85 Pulse Rate [ Anterior Bilateral Throughout] Pulse Rate [ From Monitor] Respiratory 14 14 14 Rate Respiratory Rate [Anterior Bilateral Throughout] Blood Pressure 123/40 115/41 126/43 O2 Sat by Pulse 100 100 100 Oximetry O2 Sat by Pulse 100 Oximetry [ Anterior Bilateral Throughout] 05/04/22 05/04/22 05/04/22 10:00 10:15 10:16 Temperature Pulse Rate 84 82 85 Pulse Rate [ Anterior Bilateral Throughout] Pulse Rate [ From Monitor] Respiratory 14 14 Rate Respiratory Rate [Anterior Bilateral Throughout] Blood Pressure 141/39 138/45 138/45 O2 Sat by Pulse 100 100 Oximetry O2 Sat by Pulse Oximetry [ Anterior Bilateral Throughout] 05/04/22 05/04/22 05/04/22 10:30 10:45 11:00 Temperature 98.2 F 98.2 F 99.0 F Pulse Rate 111 H 98 H 81 Pulse Rate [ Anterior Bilateral Throughout] Pulse Rate [ From Monitor] Respiratory 14 14 14 Rate Respiratory Rate [Anterior Bilateral Throughout] Blood Pressure 138/45 104/50 125/48 O2 Sat by Pulse 98 100 100 Oximetry O2 Sat by Pulse Oximetry [ Anterior Bilateral Throughout] 05/04/22 05/04/22 05/04/22 11:15 11:30 11:45 Temperature 99.1 F Pulse Rate 86 90 100 H Pulse Rate [ Anterior Bilateral Throughout] Pulse Rate [ From Monitor] Respiratory 14 14 Rate Respiratory Rate [Anterior Bilateral Throughout] Blood Pressure 119/39 106/53 113/59 O2 Sat by Pulse 100 100 Oximetry O2 Sat by Pulse Oximetry [ Anterior Bilateral Throughout] 05/04/22 05/04/22 05/04/22 11:46 12:00 12:15 Temperature Pulse Rate 98 H 106 H 93 H Pulse Rate [ Anterior Bilateral Throughout] Pulse Rate [ From Monitor] Respiratory 13 16 14 Rate Respiratory Rate [Anterior Bilateral Throughout] Blood Pressure 113/59 113/59 98/47 O2 Sat by Pulse 100 100 100 Oximetry O2 Sat by Pulse Oximetry [ Anterior Bilateral Throughout] 05/04/22 05/04/22 05/04/22 12:30 12:45 13:00 Temperature Pulse Rate 105 H 96 H 92 H Pulse Rate [ Anterior Bilateral Throughout] Pulse Rate [ From Monitor] Respiratory 14 14 Rate Respiratory Rate [Anterior Bilateral Throughout] Blood Pressure 132/76 102/46 111/57 O2 Sat by Pulse 100 100 Oximetry O2 Sat by Pulse Oximetry [ Anterior Bilateral Throughout] 05/04/22 13:15 Temperature Pulse Rate 106 H Pulse Rate [ Anterior Bilateral Throughout] Pulse Rate [ From Monitor] Respiratory Rate Respiratory Rate [Anterior Bilateral Throughout] Blood Pressure 102/76 O2 Sat by Pulse Oximetry O2 Sat by Pulse Oximetry [ Anterior Bilateral Throughout] General appearance: Present: other (Nonresponsive on vent) - Labs CBC & Chem 7: 05/04/22 04:26 05/04/22 04:26 Labs: Abnormal lab results 05/03/22 05/03/22 05/03/22 Range/Units 15:17 17:30 23:33 WBC (4.5-11.0) K/mm3 RBC (3.65-5.03) M/mm3 Hgb (10.1-14.3) gm/dl Hct (30.3-42.9) % RDW (13.2-15.2) % PT (12.2-14.9) Sec. INR (0.87-1.13) ABG pH 7.577 H (7.350-7.450) pH Units ABG pO2 140.4 H (80.0-90.0) mm Hg ABG HCO3 26.4 H (20.0-26.0) mmol/L ABG Base Excess 4.0 H (-2.0-3.0) mmol/L ABG Hemoglobin 5.4 L (12.0-16.0) gm/dl Sodium (137-145) mmol/L Chloride (98-107) mmol/L BUN (7-17) mg/dL Creatinine (0.6-1.2) mg/dL Glucose (65-100) mg/dL POC Glucose 60 L 106 H (70-105) mg/dL Crossmatch 05/04/22 05/04/22 05/04/22 Range/Units 04:26 04:26 04:26 WBC 16.0 H (4.5-11.0) K/mm3 RBC 2.39 L (3.65-5.03) M/mm3 Hgb 6.9 L (10.1-14.3) gm/dl Hct 21.4 L (30.3-42.9) % RDW 15.8 H (13.2-15.2) % PT 17.6 H (12.2-14.9) Sec. INR 1.29 H (0.87-1.13) ABG pH (7.350-7.450) pH Units ABG pO2 (80.0-90.0) mm Hg ABG HCO3 (20.0-26.0) mmol/L ABG Base Excess (-2.0-3.0) mmol/L ABG Hemoglobin (12.0-16.0) gm/dl Sodium 133 L (137-145) mmol/L Chloride 94.8 L (98-107) mmol/L BUN 34 H (7-17) mg/dL Creatinine 3.5 H (0.6-1.2) mg/dL Glucose 175 H (65-100) mg/dL POC Glucose (70-105) mg/dL Crossmatch 05/04/22 05/04/22 05/04/22 Range/Units 05:30 05:40 05:41 WBC (4.5-11.0) K/mm3 RBC (3.65-5.03) M/mm3 Hgb (10.1-14.3) gm/dl Hct (30.3-42.9) % RDW (13.2-15.2) % PT (12.2-14.9) Sec. INR (0.87-1.13) ABG pH 7.547 H (7.350-7.450) pH Units ABG pO2 141.7 H (80.0-90.0) mm Hg ABG HCO3 27.2 H (20.0-26.0) mmol/L ABG Base Excess 5.3 H (-2.0-3.0) mmol/L ABG Hemoglobin 6.9 L (12.0-16.0) gm/dl Sodium (137-145) mmol/L Chloride (98-107) mmol/L BUN (7-17) mg/dL Creatinine (0.6-1.2) mg/dL Glucose (65-100) mg/dL POC Glucose 177 H (70-105) mg/dL Crossmatch See Detail 05/04/22 Range/Units 12:55 WBC (4.5-11.0) K/mm3 RBC (3.65-5.03) M/mm3 Hgb (10.1-14.3) gm/dl Hct (30.3-42.9) % RDW (13.2-15.2) % PT (12.2-14.9) Sec. INR (0.87-1.13) ABG pH (7.350-7.450) pH Units ABG pO2 (80.0-90.0) mm Hg ABG HCO3 (20.0-26.0) mmol/L ABG Base Excess (-2.0-3.0) mmol/L ABG Hemoglobin (12.0-16.0) gm/dl Sodium (137-145) mmol/L Chloride (98-107) mmol/L BUN (7-17) mg/dL Creatinine (0.6-1.2) mg/dL Glucose (65-100) mg/dL POC Glucose 141 H (70-105) mg/dL Crossmatch Medications & Allergies - Medications Allergies/Adverse Reactions: Allergies buspirone [From BuSpar] Allergy (Verified 04/18/22 12:22) Unknown Penicillins Allergy (Verified 04/18/22 12:22) Rash corn Adverse Reaction (Verified 04/18/22 12:22) Unknown Home Medications: Home Medications Medication Instructions Recorded Confirmed Last Taken Type Sevelamer Carbonate [Renvela] 0.8 gram PO TIDWM 09/02/20 02/02/22 05/31/21 History HYDROcodone/APAP 5-325 [[place] 1 each PO Q4HR PRN #30 tablet 05/18/21 02/02/22 Unknown Rx 5-325 mg TAB] ALBUTEROL NEB's [Proventil 0.083% 2.5 mg IH Q3HRT PRN #1 nebu 03/03/22 Unknown Rx NEBS] Clopidogrel [Plavix] 75 mg PO QDAY #90 tablet 03/03/[address] [Depakote Dr] 750 mg PO BID #60 tablet 03/03/22 Unknown Rx LORazepam [Ativan] 1 mg PO DAILY #30 tab 03/03/22 Unknown Rx Memantine Xr [Namenda Xr] 5 mg PO DAILY #30 cap 03/03/22 Unknown Rx Midodrine [Proamatine] 10 mg PO TID #90 tab 03/03/22 Unknown Rx Pantoprazole [Protonix TAB] 40 mg PO DAILY #30 tab 03/03/22 Unknown Rx QUEtiapine [SEROquel] 400 mg PO BID #60 tab 03/03/22 Unknown Rx risperiDONE [RisperDAL] 0.5 mg PO BID #60 tab 03/03/22 Unknown Rx Active Medications: Generic Name Dose Route Start Last Admin Trade Name Freq PRN Reason Stop Dose Admin Acetaminophen 650 mg 04/22/22 20:12 05/03/22 23:41 Acetaminophen 325 Mg/10.15 Ml Oral Liqd Unit Dose PO 650 mg Q6H PRN Administration Pain MILD(1-3)/Fever >100.5/DRAKE Acetylcysteine 100 mg 05/03/22 20:00 05/04/22 07:41 Acetylcysteine 10% 100 Mg/1 Ml *For Inhalation Use* INHALATION Not Given Q12HRT CONNOR Albumin Human 25 gm 04/21/22 13:00 04/22/22 16:31 Albumin Human 25% (25 Gm/100 Ml) Inj IV 25 gm BIANCA PRN Administration Hypotension Albuterol 2.5 mg 04/21/22 08:30 04/24/22 16:51 Albuterol 2.5 Mg/3 Ml Nebu IH 2.5 mg Q3HRT PRN Administration Shortness Of Breath Albuterol/Ipratropium 1 ampul 04/21/22 14:00 08/18/22 07:42 Ipratropium/Albuterol Sulfate 3 Ml Ampul.Neb IH 1 ampul TIDRT CONNOR Administration Bisacodyl 10 mg 05/04/22 10:00 05/04/22 10:15 Bisacodyl 10 Mg Rect Supp FL 05/06/22 09:59 10 mg QDAY CONNOR Administration Docusate Sodium 100 mg 05/01/22 22:00 05/03/22 21:13 Docusate Sodium 100 Mg/10 Ml Oral Liqd FEEDTUBE 100 mg BID CONNOR Administration Epoetin Lb-epbx 20,000 unit 04/23/22 12:00 05/04/22 13:19 Epoetin Lb-Epbx 20,000 Unit/1 Ml Vial IV 20,000 unit BIANCA PRN Administration HEMODIALYSIS Fentanyl 50 mcg 05/03/22 10:29 Fentanyl 100 Mcg/2 Ml Inj IV Q10MIN PRN ANALGESIA Sodium Chloride 100 mls @ 999 mls/hr 04/22/22 09:12 Nacl 0.9% IV BIANCA PRN Hypotension Fentanyl Citrate 2,000 mcg in 100 mls @ 2.722 mls/hr 05/03/22 11:00 Fentanyl Drip Premix IV TITR CONNOR Protocol 1 MCG/KG/HR NORepinephrine/NS 8 MG-250 ML 8 mg in 250 mls @ 3.75 mls/hr 05/03/22 13:15 05/04/22 13:15 Norepinephrine/Ns 8 Mg-250 Ml (Double Conc) IV 6 mcg/min TITRATE CONNOR 11.25 mls/hr Administration Protocol 2 MCG/MIN Vasopressin 20 unit/ Sodium 101 mls @ 9.09 mls/hr 05/04/22 00:30 05/04/22 10:12 Chloride IV 0.03 units/min TITR CONNOR 9.09 mls/hr Administration 0.03 UNITS/MIN Cefepime HCl 1 gm in 100 mls @ 200 mls/hr 05/04/22 18:00 Cefepime/Ns 1 Gm/100 Ml IV QPM [facility] Protocol Vancomycin HCl 1 gm in 250 mls @ 167.007 mls/hr 05/04/22 22:00 Vancomycin/Ns 1 Gm/250 Ml IV 05/05/22 02:00 ONCE@2200 [facility] Lansoprazole 30 mg 04/23/22 10:00 05/04/22 13:29 Lansoprazole 30 Mg Solutab FEEDTUBE 30 mg QDAY CONNOR Administration Lorazepam 0.5 mg 04/25/22 09:59 Lorazepam 0.5 Mg Tab FEEDTUBE QDAY PRN Anxiety Memantine 5 mg 04/25/22 10:00 05/04/22 13:29 Memantine 5 Mg Tab FEEDTUBE 5 mg BID CONNOR Administration Metoclopramide HCl 5 mg 04/19/22 09:55 Metoclopramide 10 Mg/2 Ml Inj IV Q6H PRN Nausea And Vomiting Midodrine 20 mg 04/26/22 14:00 05/04/22 13:28 Midodrine 10 Mg Tab FEEDTUBE 20 mg TID CONNOR Administration Naloxone HCl 0.1 mg 04/19/22 09:55 Naloxone 0.4 Mg/1 Ml Inj IV Q2MIN PRN Res Rate </= 8 or 02 SAT < 92% Oxymetazoline HCl 2 spray 05/01/22 15:05 Oxymetazoline 0.05% Nasal [place] NS 05/04/22 15:04 Q12H PRN Nasal Congestion Polyethylene Glycol 17 gm 05/03/22 10:00 05/04/22 13:30 Polyethylene Glycol 3350 17 Gm Powder FEEDTUBE 17 gm QDAY CONNOR Administration Risperidone 0.5 mg 04/25/22 11:00 05/04/22 13:29 Risperidone 1 Mg Tab FEEDTUBE 0.5 mg BID CONNOR Administration Scopolamine 1 each 05/02/22 10:00 05/02/22 09:50 Scopolamine Transdermal Patch 72 Hr TD 1 each Q3D CONNOR Administration Senna 17.2 mg 04/23/22 10:00 05/04/22 13:29 Sennosides 8.6 Mg Tab FEEDTUBE 17.2 mg BID CONNOR Administration Sodium Chloride 10 ml 04/19/22 12:00 05/04/22 10:15 Sodium Chloride 0.9% 10 Ml Flush Syringe IV 10 ml BID CONNOR Administration Sodium Chloride 10 ml 04/19/22 11:19 Sodium Chloride 0.9% 10 Ml Flush Syringe IV PRN PRN LINE FLUSH Valproic Acid 750 mg 04/22/22 22:00 05/03/22 21:13 Valproic Acid 250 Mg/5 Ml Oral Liqd FEEDTUBE 750 mg BID CONNOR Administration HEART Score - HEART Score Troponin: Troponin T 0.415 ng/mL (0.00-0.029) H* 04/19/22 04:53
[2022-05-04] MEDS: VALPROIC ACID 250 MG/5 ML ORAL LIQD FEEDTUBE SCH ×2 (13:35→21:09)
[2022-05-04] MEDS: DOCUSATE SODIUM 100 MG/10 ML ORAL LIQD FEEDTUBE SCH ×2 (13:35→21:09)
[2022-05-04] MEDS: fentaNYL 100 MCG/2 ML INJ IV PRN ×2 (16:14→22:57)
[2022-05-04] MEDS: CEFEPIME/NS 1 GM/100 ML 1 GM/100 ML BAG IV SCH (17:16)
[2022-05-04] MEDS ORDERED: VANCOMYCIN/NS 1 GM/250 ML 1 GM/250 ML BAG IV SCH (22:00)
[2022-05-04] MEDS ORDERED: VANCOMYCIN 1,000 MG in SODIUM CHLORIDE 0.9% 250ML 250 ML IV SCH (22:00)
[2022-05-05] MEDS: NORepinephrine/NS 8 MG-250 ML 8 MG/250 ML INFUS..BTL IV SCH ×2 (01:35→12:45)
[2022-05-05] MEDS ORDERED: WATER FOR INJ Sterile (PF) 10 ML ONE (02:51)
[2022-05-05] MEDS ORDERED: ALTEPLASE 2 MG INJ IV ONE (03:44)
[2022-05-05 04:52] LABS: Hematocrit 24.8 % (30.3-42.9); Mean Corpuscular HGB Conc 33 % (30-34); Mean Corpuscular Volume 88 fl (79-97); Platelet Count 156 K/mm3 (140-440); Red Blood Count 2.81 M/mm3 (3.65-5.03); Red Cell Distribution Width 16.8 % (13.2-15.2)
[2022-05-05 05:07] LABS: Calcium 8.9 mg/dL (8.4-10.2)
[2022-05-05] MEDS: fentaNYL 100 MCG/2 ML INJ IV PRN ×2 (05:29→12:23)
[2022-05-05 05:46] LABS: Band Neutrophils # (Manual) 0.4 K/mm3; Basophils % (Manual) 0 % (0.0-1.8); Total Cells Counted 100
[2022-05-05 05:47] LABS: Hypochromasia 2+
[2022-05-05 05:48] LABS: Anisocytosis 1+; Platelet Estimate Consistent w Auto
--- NOTE | 2022-05-05 06:46 | XRay Report ---
CHEST 1 VIEW 05/05/2022 5:38 AM INDICATION / CLINICAL INFORMATION: follow up respiratory failure. COMPARISON: 05/04/2022 FINDINGS: SUPPORT DEVICES: ET tube is 3.7 cm above the tena HEART / MEDIASTINUM: No significant abnormality. LUNGS / PLEURA: Diffuse bilateral pulmonary opacities right greater than left. Opacities have signifi cantly increased in the right lung since prior exam ADDITIONAL FINDINGS: No significant additional fi ndings. Signer Name: Sohail Hastings MD Signed: 05/05/2022 6:41 AM Workstation Name: [id number]
[2022-05-05] MEDS: IPRATROPIUM/ALBUTEROL SULFATE 3 ML AMPUL.NEB IH SCH ×3 (07:53→21:01)
[2022-05-05] MEDS: ACETYLCYSTEINE 10% 100 MG/1 ML *FOR INHALATION USE INHALATION SCH (07:54)
[2022-05-05] MEDS: VALPROIC ACID 250 MG/5 ML ORAL LIQD FEEDTUBE SCH ×2 (09:43→23:18)
[2022-05-05] MEDS: POLYETHYLENE GLYCOL 3350 17 GM POWDER FEEDTUBE SCH ×2 (09:44→09:55)
[2022-05-05] MEDS: MIDODRINE 10 MG TAB FEEDTUBE SCH ×3 (09:44→23:20)
[2022-05-05] MEDS: risperiDONE 1 MG TAB FEEDTUBE SCH ×2 (09:44→23:18)
[2022-05-05] MEDS: LANSOPRAZOLE 30 MG SOLUTAB FEEDTUBE SCH (09:44)
[2022-05-05] MEDS: SCOPOLAMINE TRANSDERMAL PATCH 72 HR TD SCH (09:45)
[2022-05-05] MEDS: SENNOSIDES 8.6 MG TAB FEEDTUBE SCH ×3 (09:45→23:19)
[2022-05-05] MEDS: VASOPRESSIN 20 UNIT in SODIUM CHLORIDE 0.9% 100 ML IV SCH (09:46)
[2022-05-05] MEDS: DOCUSATE SODIUM 100 MG/10 ML ORAL LIQD FEEDTUBE SCH ×2 (09:56→23:18)
[2022-05-05] MEDS: MEMANTINE 5 MG TAB FEEDTUBE SCH ×2 (09:57→23:19)
--- NOTE | 2022-05-05 10:19 | Progress Note ---
Assessment and Plan Acute hypoxemic respiratory failure, Acute on Chronic Hypotension Acute on Chronic Metabolic Encephalopathy Possible Shock Syndrome SVT Elevated troponin, Bipolar disorder, Schizophrenia, Hyperkalemia ESRD on hemodialysis, Anemia of chronic disease, Type 2 NSTEMI GERD Subclinical Hypothyroidism Moderate protein caloric malnutrition - stressed chest PT to RT - begin Mucomyst - will do a therapeutic bronchoscopy to clear larger airway secretions - continue empiric Vancomycin and Cefepime (de-escalate per ID recommendations) - wean Levophed for target MAP > 65 mmHg while septic - may ultimately need a tracheostomy if AMS is persistent - LTAC evaluation is appropriate - continue care as below otherwise; - continue Daily SAT and SBT assessment as tolerated - sedation prn for target RASS 0 to -1 - VAP bundle addressed - continue lung protective strategies - continue bronchodilators with pulmonary hygiene per RT - wean per pulmonary driven protocols otherwise - enteral nutrition at goal rate as tolerated - continue Midodrine for BP support - femoral CVL replaced as no other viable site for access - Albumin 25 gms of 25% solution prn with dialysis - continue HD/UF per nephrology prescription for toxin and volume clearance - continue accuchecks with glycemic control per SSI (While critically ill target blood glucose of 140-180 mg/dL; avoid hypoglycemia) - continue supplemental oxygen for target O2 sat's > 90% acutely - avoid nephrotoxins, renally dose all medications - continue to avoid benzodiazepine's, reduce the possibility of delirium - prn analgesia per CPOT score - Maintenance of sleep-wake cycle, avoid delirium - G.I. & VTE prophylaxis - PT/OT/ROM exercises - continue mobility protocols for pressure ulcer prophylaxis - Monitor hemodynamics closely - continue other care per attending / other consultants - discharge planning ongoing concurrently .... Re-evaluate in am & prn CONDITION: CRITICAL PROGNOSIS: GUARDED CODE STATUS: FULL CODE The high probability of a clinically significant, sudden or life-threatening deterioration of the [respiratory, cardiovascular, renal & neurologic] system(s) required my full and direct attention, intervention and personal management. The aggregate critical care time was [35] minutes without overlap. Time includes spent on; [x] Data Review and interpretation [x] Patient assessment and monitoring of vital signs [x] Documentation [x] Medication orders and management Subjective Date of service: 05/05/22 Principal diagnosis: AHRF; Shock; AMS; SVT; NSTEMI; ESRD; Protein calorie malnutrition Interval history: Patient is seen today for: Acute hypoxemic respiratory failure; Shock / Hypotension; AMS; SVT; NSTEMI; Schizophrenia; ESRD on Dialysis; Moderate protein caloric malnutrition Seen and examined at bedside; 24hour events reviewed; nursing and respiratory care staff consulted; no adverse overnight events reported to me; resting in bed; remains on MVS; remains on Levophed drip @ 10 artem's/min; CXR with increasing right lung infiltrates / atelectasis; secretions are moderate; no N/V/F/C Objective Vital Signs - 12hr 05/04/22 05/04/22 05/04/22 22:30 22:45 23:00 Temperature Pulse Rate 87 86 78 Pulse Rate [ Anterior Bilateral Throughout] Respiratory 14 15 14 Rate Respiratory Rate [Anterior Bilateral Throughout] Blood Pressure 87/38 113/61 113/61 O2 Sat by Pulse 99 98 99 Oximetry 05/04/22 05/04/22 05/04/22 23:15 23:30 23:33 Temperature Pulse Rate 75 75 73 Pulse Rate [ Anterior Bilateral Throughout] Respiratory 14 14 Rate Respiratory Rate [Anterior Bilateral Throughout] Blood Pressure 74/35 90/36 80/33 O2 Sat by Pulse 99 99 99 Oximetry 05/04/22 05/05/22 05/05/22 23:45 00:00 00:15 Temperature 99.8 F H Pulse Rate 76 79 77 Pulse Rate [ Anterior Bilateral Throughout] Respiratory 14 15 14 Rate Respiratory Rate [Anterior Bilateral Throughout] Blood Pressure 97/43 100/43 102/37 O2 Sat by Pulse 100 100 99 Oximetry 05/05/22 05/05/22 05/05/22 00:30 00:45 01:00 Temperature Pulse Rate 102 H 79 Pulse Rate [ Anterior Bilateral Throughout] Respiratory 14 Rate Respiratory Rate [Anterior Bilateral Throughout] Blood Pressure 98/44 128/63 110/46 O2 Sat by Pulse 99 99 100 Oximetry 05/05/22 05/05/22 05/05/22 01:15 01:30 01:45 Temperature Pulse Rate 76 75 76 Pulse Rate [ Anterior Bilateral Throughout] Respiratory 14 14 14 Rate Respiratory Rate [Anterior Bilateral Throughout] Blood Pressure 107/51 111/42 121/41 O2 Sat by Pulse 100 100 100 Oximetry 05/05/22 05/05/22 05/05/22 02:00 02:15 02:30 Temperature Pulse Rate 75 73 76 Pulse Rate [ Anterior Bilateral Throughout] Respiratory 14 14 14 Rate Respiratory Rate [Anterior Bilateral Throughout] Blood Pressure 104/42 107/49 115/49 O2 Sat by Pulse 100 100 100 Oximetry 05/05/22 05/05/22 05/05/22 02:45 03:01 03:15 Temperature Pulse Rate 75 91 H 96 H Pulse Rate [ Anterior Bilateral Throughout] Respiratory 14 14 14 Rate Respiratory Rate [Anterior Bilateral Throughout] Blood Pressure 122/44 92/36 92/36 O2 Sat by Pulse 100 99 98 Oximetry 05/05/22 05/05/22 05/05/22 03:21 03:30 03:45 Temperature 99 F Pulse Rate 77 74 Pulse Rate [ Anterior Bilateral Throughout] Respiratory 14 14 Rate Respiratory Rate [Anterior Bilateral Throughout] Blood Pressure 105/51 96/54 O2 Sat by Pulse 100 100 Oximetry 05/05/22 05/05/22 05/05/22 04:00 04:15 04:31 Temperature Pulse Rate 72 76 90 Pulse Rate [ Anterior Bilateral Throughout] Respiratory 14 14 14 Rate Respiratory Rate [Anterior Bilateral Throughout] Blood Pressure 114/35 111/41 118/43 O2 Sat by Pulse 100 100 98 Oximetry 05/05/22 05/05/22 05/05/22 04:45 04:59 05:01 Temperature Pulse Rate 73 97 H 94 H Pulse Rate [ Anterior Bilateral Throughout] Respiratory 14 15 Rate Respiratory Rate [Anterior Bilateral Throughout] Blood Pressure 106/39 106/39 106/39 O2 Sat by Pulse 100 98 97 Oximetry 05/05/22 05/05/22 05/05/22 05:15 05:30 05:45 Temperature Pulse Rate 78 88 70 Pulse Rate [ Anterior Bilateral Throughout] Respiratory 14 14 14 Rate Respiratory Rate [Anterior Bilateral Throughout] Blood Pressure 95/46 104/58 84/39 O2 Sat by Pulse 100 99 99 Oximetry 05/05/22 05/05/22 05/05/22 06:01 07:54 07:57 Temperature Pulse Rate 78 75 Pulse Rate [ 77 Anterior Bilateral Throughout] Respiratory 14 Rate Respiratory 15 Rate [Anterior Bilateral Throughout] Blood Pressure 95/40 106/40 O2 Sat by Pulse 99 100 Oximetry Constitutional: appears uncomfortable, other (eldely female with mildly increased respiratory effort at rest on MVS) Eyes: non-icteric ENT: oropharynx moist, oropharyngeal exudate pre (mild) Neck: supple, no lymphadenopathy, no JVD Effort: mildly labored Ascultation: Bilateral: diminished breath sounds, rales (R>L), other (referred upper airway sounds) Percussion: Bilateral: not dull Cardiovascular: regular rate and rhythm, other (S1,S2) Gastrointestinal: normoactive bowel sounds, soft, non-tender, non-distended, other (+ PEG) Integumentary: normal Extremities: no cyanosis, pulses normal, no ischemia or petechiae, edema (2+ bilaterally) Neurologic: non-focal exam (grossly), pupils equal and round, other (lethargic ) Psychiatric: anxious CBC and BMP: 05/05/22 04:20 05/05/22 04:20 ABG, PT/INR, D-dimer: ABG ABG pH 7.547 pH Units (7.350-7.450) H 05/04/22 05:40 ABG pCO2 32.0 mm Hg 05/04/22 05:40 ABG pO2 141.7 mm Hg (80.0-90.0) H 05/04/22 05:40 ABG O2 Saturation 99.0 % (95.0-99.0) 05/04/22 05:40 PT/INR, D-dimer PT 17.6 Sec. (12.2-14.9) H 05/04/22 04:26 INR 1.29 (0.87-1.13) H 05/04/22 04:26 Abnormal lab findings: Abnormal Labs 04/19/22 04/19/22 04/19/22 04:53 04:53 04:53 WBC RBC 3.06 L Hgb 8.6 L Hct 28.0 L RDW 16.3 H [place] % (Auto) 11.3 H Lymph # (Auto) Seg Neuts % (Manual) Lymphocytes % (Manual) Nucleated RBC % Seg Neutrophils # Man Lymphocytes # (Manual) PT INR APTT Heparin Anti-Xa Level ABG pH ABG pO2 ABG HCO3 ABG Base Excess ABG Hemoglobin Oxyhemoglobin Sodium Potassium 5.1 H Chloride Carbon Dioxide 21 L BUN 94 H Creatinine 6.3 H Glucose POC Glucose Phosphorus Magnesium Troponin T 0.415 H* Albumin 2.7 L Free T4 0.28 L Crossmatch 04/19/22 04/19/22 04/20/22 19:40 19:40 05:30 WBC 4.1 L RBC 2.97 L Hgb 8.5 L 8.2 L Hct 27.8 L 27.1 L RDW 17.0 H [place] % (Auto) 15.2 H Lymph # (Auto) 1.1 L Seg Neuts % (Manual) Lymphocytes % (Manual) Nucleated RBC % Seg Neutrophils # Man Lymphocytes # (Manual) PT 17.9 H INR 1.28 H APTT 199.1 H* Heparin Anti-Xa Level ABG pH ABG pO2 ABG HCO3 ABG Base Excess ABG Hemoglobin Oxyhemoglobin Sodium Potassium Chloride Carbon Dioxide BUN Creatinine Glucose POC Glucose Phosphorus Magnesium Troponin T Albumin Free T4 Crossmatch 04/20/22 04/20/22 04/21/22 05:30 18:23 00:29 WBC RBC Hgb Hct RDW [place] % (Auto) Lymph # (Auto) Seg Neuts % (Manual) Lymphocytes % (Manual) Nucleated RBC % Seg Neutrophils # Man Lymphocytes # (Manual) PT INR APTT Heparin Anti-Xa Level 0.17 L ABG pH ABG pO2 ABG HCO3 ABG Base Excess ABG Hemoglobin Oxyhemoglobin Sodium Potassium Chloride Carbon Dioxide 21 L BUN 95 H Creatinine 6.6 H Glucose 139 H POC Glucose Phosphorus Magnesium 2.60 H Troponin T Albumin 2.4 L Free T4 Crossmatch 04/21/22 04/21/22 04/22/22 04:00 04:00 03:45 WBC RBC 2.74 L Hgb 7.7 L Hct 24.7 L RDW 16.6 H [place] % (Auto) Lymph # (Auto) Seg Neuts % (Manual) Lymphocytes % (Manual) Nucleated RBC % Seg Neutrophils # Man Lymphocytes # (Manual) PT INR APTT Heparin Anti-Xa Level < 0.10 L ABG pH ABG pO2 ABG HCO3 ABG Base Excess ABG Hemoglobin Oxyhemoglobin Sodium 133 L Potassium Chloride Carbon Dioxide 20 L BUN 89 H Creatinine 6.6 H Glucose 131 H POC Glucose Phosphorus 6.40 H Magnesium 2.50 H Troponin T Albumin Free T4 Crossmatch 04/22/22 04/22/22 04/22/22 03:45 12:13 14:30 WBC RBC Hgb Hct RDW [place] % (Auto) Lymph # (Auto) Seg Neuts % (Manual) Lymphocytes % (Manual) Nucleated RBC % Seg Neutrophils # Man Lymphocytes # (Manual) PT INR APTT Heparin Anti-Xa Level 0.11 L 0.11 L ABG pH ABG pO2 ABG HCO3 ABG Base Excess ABG Hemoglobin Oxyhemoglobin Sodium 136 L Potassium Chloride Carbon Dioxide 18 L BUN 90 H Creatinine 6.3 H Glucose 121 H POC Glucose Phosphorus 6.50 H Magnesium Troponin T Albumin Free T4 Crossmatch 04/22/22 04/23/22 04/23/22 23:08 02:17 04:10 WBC RBC Hgb 7.3 L Hct 23.3 L RDW [place] % (Auto) Lymph # (Auto) Seg Neuts % (Manual) Lymphocytes % (Manual) Nucleated RBC % Seg Neutrophils # Man Lymphocytes # (Manual) PT INR APTT Heparin Anti-Xa Level 0.14 L ABG pH ABG pO2 ABG HCO3 ABG Base Excess ABG Hemoglobin Oxyhemoglobin Sodium Potassium Chloride Carbon Dioxide BUN Creatinine Glucose POC Glucose 153 H Phosphorus Magnesium Troponin T Albumin Free T4 Crossmatch 04/23/22 04/23/22 04/23/22 04:10 06:09 23:22 WBC RBC Hgb Hct RDW [place] % (Auto) Lymph # (Auto) Seg Neuts % (Manual) Lymphocytes % (Manual) Nucleated RBC % Seg Neutrophils # Man Lymphocytes # (Manual) PT INR APTT Heparin Anti-Xa Level ABG pH ABG pO2 ABG HCO3 ABG Base Excess ABG Hemoglobin Oxyhemoglobin Sodium Potassium Chloride Carbon Dioxide BUN 36 H Creatinine 3.4 H Glucose 131 H POC Glucose 141 H 114 H Phosphorus Magnesium Troponin T Albumin Free T4 Crossmatch 04/24/22 04/24/22 04/24/22 02:10 04:00 04:00 WBC RBC 2.48 L Hgb 7.1 L Hct 22.6 L RDW 16.9 H [place] % (Auto) Lymph # (Auto) Seg Neuts % (Manual) Lymphocytes % (Manual) Nucleated RBC % Seg Neutrophils # Man Lymphocytes # (Manual) PT INR APTT Heparin Anti-Xa Level 0.12 L ABG pH ABG pO2 ABG HCO3 ABG Base Excess ABG Hemoglobin Oxyhemoglobin Sodium 134 L Potassium Chloride Carbon Dioxide BUN 42 H Creatinine 3.9 H Glucose 141 H POC Glucose Phosphorus Magnesium Troponin T Albumin Free T4 Crossmatch 04/24/22 04/24/22 04/24/22 05:03 10:20 11:24 WBC RBC Hgb Hct RDW [place] % (Auto) Lymph # (Auto) Seg Neuts % (Manual) Lymphocytes % (Manual) Nucleated RBC % Seg Neutrophils # Man Lymphocytes # (Manual) PT INR APTT Heparin Anti-Xa Level < 0.10 L ABG pH ABG pO2 ABG HCO3 ABG Base Excess ABG Hemoglobin Oxyhemoglobin Sodium Potassium Chloride Carbon Dioxide BUN Creatinine Glucose POC Glucose 142 H 144 H Phosphorus Magnesium Troponin T Albumin Free T4 Crossmatch 04/25/22 04/25/22 04/25/22 00:15 04:11 04:11 WBC 4.4 L RBC 2.38 L Hgb 6.7 L Hct 21.7 L RDW 17.2 H [place] % (Auto) Lymph # (Auto) Seg Neuts % (Manual) Lymphocytes % (Manual) Nucleated RBC % Seg Neutrophils # Man Lymphocytes # (Manual) PT INR APTT Heparin Anti-Xa Level ABG pH ABG pO2 ABG HCO3 ABG Base Excess ABG Hemoglobin Oxyhemoglobin Sodium 134 L Potassium Chloride 97.1 L Carbon Dioxide BUN 47 H Creatinine 4.3 H Glucose 106 H POC Glucose 136 H Phosphorus Magnesium Troponin T Albumin Free T4 Crossmatch 04/25/22 04/25/22 04/25/22 06:01 15:30 22:44 WBC RBC Hgb 8.8 L Hct 28.1 L D RDW [place] % (Auto) Lymph # (Auto) Seg Neuts % (Manual) Lymphocytes % (Manual) Nucleated RBC % Seg Neutrophils # Man Lymphocytes # (Manual) PT INR APTT Heparin Anti-Xa Level ABG pH ABG pO2 ABG HCO3 ABG Base Excess ABG Hemoglobin Oxyhemoglobin Sodium Potassium Chloride Carbon Dioxide BUN Creatinine Glucose POC Glucose 137 H Phosphorus Magnesium Troponin T Albumin Free T4 Crossmatch See Detail 04/26/22 04/27/22 04/27/22 04:20 04:45 04:45 WBC RBC 2.81 L 3.13 L Hgb 8.0 L 9.0 L Hct 25.4 L 29.1 L RDW 16.2 H 17.4 H [place] % (Auto) Lymph # (Auto) Seg Neuts % (Manual) Lymphocytes % (Manual) Nucleated RBC % Seg Neutrophils # Man Lymphocytes # (Manual) PT INR APTT Heparin Anti-Xa Level ABG pH ABG pO2 ABG HCO3 ABG Base Excess ABG Hemoglobin Oxyhemoglobin Sodium 131 L Potassium Chloride 93.5 L Carbon Dioxide BUN 44 H Creatinine 3.9 H Glucose 135 H POC Glucose Phosphorus Magnesium Troponin T Albumin Free T4 Crossmatch 04/27/22 04/28/22 04/28/22 23:38 05:26 07:54 WBC 11.1 H RBC 2.40 L Hgb 6.9 L Hct 22.1 L D RDW 17.2 H [place] % (Auto) Lymph # (Auto) Seg Neuts % (Manual) Lymphocytes % (Manual) Nucleated RBC % Seg Neutrophils # Man Lymphocytes # (Manual) PT INR APTT Heparin Anti-Xa Level ABG pH ABG pO2 ABG HCO3 ABG Base Excess ABG Hemoglobin Oxyhemoglobin Sodium Potassium Chloride Carbon Dioxide BUN Creatinine Glucose POC Glucose 229 H 169 H Phosphorus Magnesium Troponin T Albumin Free T4 Crossmatch 04/28/22 04/28/22 04/29/22 12:31 17:54 00:49 WBC RBC Hgb Hct RDW [place] % (Auto) Lymph # (Auto) Seg Neuts % (Manual) Lymphocytes % (Manual) Nucleated RBC % Seg Neutrophils # Man Lymphocytes # (Manual) PT INR APTT Heparin Anti-Xa Level ABG pH ABG pO2 ABG HCO3 ABG Base Excess ABG Hemoglobin Oxyhemoglobin Sodium Potassium Chloride Carbon Dioxide BUN Creatinine Glucose POC Glucose 132 H 138 H 189 H Phosphorus Magnesium Troponin T Albumin Free T4 Crossmatch 04/29/22 04/29/22 04/29/22 06:42 10:54 10:54 WBC 11.8 H RBC 2.93 L Hgb 8.6 L Hct 26.2 L RDW 16.8 H [place] % (Auto) Lymph # (Auto) Seg Neuts % (Manual) Lymphocytes % (Manual) Nucleated RBC % Seg Neutrophils # Man Lymphocytes # (Manual) PT INR APTT Heparin Anti-Xa Level ABG pH ABG pO2 ABG HCO3 ABG Base Excess ABG Hemoglobin Oxyhemoglobin Sodium 129 L Potassium Chloride 91.5 L Carbon Dioxide BUN 46 H Creatinine 3.1 H Glucose 180 H POC Glucose 196 H Phosphorus Magnesium Troponin T Albumin Free T4 Crossmatch 04/29/22 04/29/22 04/30/22 12:03 23:32 05:57 WBC RBC Hgb Hct RDW [place] % (Auto) Lymph # (Auto) Seg Neuts % (Manual) Lymphocytes % (Manual) Nucleated RBC % Seg Neutrophils # Man Lymphocytes # (Manual) PT INR APTT Heparin Anti-Xa Level ABG pH ABG pO2 ABG HCO3 ABG Base Excess ABG Hemoglobin Oxyhemoglobin Sodium Potassium Chloride Carbon Dioxide BUN Creatinine Glucose POC Glucose 169 H 170 H 151 H Phosphorus Magnesium Troponin T Albumin Free T4 Crossmatch 04/30/22 04/30/22 04/30/22 11:28 16:39 23:22 WBC RBC Hgb Hct RDW [place] % (Auto) Lymph # (Auto) Seg [place]uts % (Manual) Lymphocytes % (Manual) Nucleated RBC % Seg Neutrophils # Man Lymphocytes # (Manual) PT INR APTT Heparin Anti-Xa Level ABG pH ABG pO2 ABG HCO3 ABG Base Excess ABG Hemoglobin Oxyhemoglobin Sodium Potassium Chloride Carbon Dioxide BUN Creatinine Glucose POC Glucose 159 H 147 H 170 H Phosphorus Magnesium Troponin T Albumin Free T4 Crossmatch 05/01/22 05/01/22 05/01/22 04:00 05:34 15:23 WBC RBC 2.92 L Hgb 8.4 L Hct 26.7 L RDW 16.6 H [place] % (Auto) Lymph # (Auto) Seg Neuts % (Manual) Lymphocytes % (Manual) Nucleated RBC % Seg Neutrophils # Man Lymphocytes # (Manual) PT INR APTT Heparin Anti-Xa Level ABG pH ABG pO2 74.2 L ABG HCO3 27.8 H ABG Base Excess ABG Hemoglobin 8.7 L Oxyhemoglobin 94.5 L Sodium Potassium Chloride Carbon Dioxide BUN Creatinine Glucose POC Glucose 140 H Phosphorus Magnesium Troponin T Albumin Free T4 Crossmatch 05/02/22 05/02/22 05/02/22 05:54 05:54 05:54 WBC RBC 2.85 L Hgb 8.3 L Hct 25.9 L RDW 16.5 H [place] % (Auto) Lymph # (Auto) Seg Neuts % (Manual) Lymphocytes % (Manual) Nucleated RBC % Seg Neutrophils # Man Lymphocytes # (Manual) PT INR APTT Heparin Anti-Xa Level ABG pH ABG pO2 ABG HCO3 ABG Base Excess ABG Hemoglobin Oxyhemoglobin Sodium 130 L 128 L Potassium Chloride 90.9 L 90.0 L Carbon Dioxide BUN 49 H 49 H Creatinine 3.7 H 3.8 H Glucose 191 H 184 H POC Glucose Phosphorus Magnesium Troponin T Albumin Free T4 Crossmatch 05/02/22 05/03/22 05/03/22 14:15 04:24 04:24 WBC RBC 2.71 L Hgb 7.8 L Hct 24.8 L RDW 16.6 H [place] % (Auto) Lymph # (Auto) Seg Neuts % (Manual) Lymphocytes % (Manual) Nucleated RBC % Seg Neutrophils # Man Lymphocytes # (Manual) PT INR APTT 39.4 H Heparin Anti-Xa Level ABG pH ABG pO2 ABG HCO3 29.1 H ABG Base Excess 4.3 H ABG Hemoglobin 8.4 L Oxyhemoglobin 94.8 L Sodium Potassium Chloride Carbon Dioxide BUN Creatinine Glucose POC Glucose Phosphorus Magnesium Troponin T Albumin Free T4 Crossmatch 05/03/22 05/03/22 05/03/22 04:24 15:17 17:30 WBC RBC Hgb Hct RDW [place] % (Auto) Lymph # (Auto) Seg Neuts % (Manual) Lymphocytes % (Manual) Nucleated RBC % Seg Neutrophils # Man Lymphocytes # (Manual) PT INR APTT Heparin Anti-Xa Level ABG pH 7.577 H ABG pO2 140.4 H ABG HCO3 26.4 H ABG Base Excess 4.0 H ABG Hemoglobin 5.4 L Oxyhemoglobin Sodium 132 L Potassium Chloride 93.0 L Carbon Dioxide BUN 31 H Creatinine 2.8 H Glucose 119 H POC Glucose 60 L Phosphorus 2.10 L Magnesium Troponin T Albumin Free T4 Crossmatch 05/03/22 05/04/22 05/04/22 23:33 04:26 04:26 WBC 16.0 H RBC 2.39 L Hgb 6.9 L Hct 21.4 L RDW 15.8 H [place] % (Auto) Lymph # (Auto) Seg Neuts % (Manual) Lymphocytes % (Manual) Nucleated RBC % Seg Neutrophils # Man Lymphocytes # (Manual) PT INR APTT Heparin Anti-Xa Level ABG pH ABG pO2 ABG HCO3 ABG Base Excess ABG Hemoglobin Oxyhemoglobin Sodium 133 L Potassium Chloride 94.8 L Carbon Dioxide BUN 34 H Creatinine 3.5 H Glucose 175 H POC Glucose 106 H Phosphorus Magnesium Troponin T Albumin Free T4 Crossmatch 05/04/22 05/04/22 05/04/22 04:26 05:30 05:40 WBC RBC Hgb Hct RDW [place] % (Auto) Lymph # (Auto) Seg Neuts % (Manual) Lymphocytes % (Manual) Nucleated RBC % Seg Neutrophils # Man Lymphocytes # (Manual) PT 17.6 H INR 1.29 H APTT Heparin Anti-Xa Level ABG pH 7.547 H ABG pO2 141.7 H ABG HCO3 27.2 H ABG Base Excess 5.3 H ABG Hemoglobin 6.9 L Oxyhemoglobin Sodium Potassium Chloride Carbon Dioxide BUN Creatinine Glucose POC Glucose Phosphorus Magnesium Troponin T Albumin Free T4 Crossmatch See Detail 05/04/22 05/04/22 05/04/22 05:41 12:55 18:10 WBC RBC Hgb Hct RDW [place] % (Auto) Lymph # (Auto) Seg Neuts % (Manual) Lymphocytes % (Manual) Nucleated RBC % Seg Neutrophils # Man Lymphocytes # (Manual) PT INR APTT Heparin Anti-Xa Level ABG pH ABG pO2 ABG HCO3 ABG Base Excess ABG Hemoglobin Oxyhemoglobin Sodium Potassium Chloride Carbon Dioxide BUN Creatinine Glucose POC Glucose 177 H 141 H 143 H Phosphorus Magnesium Troponin T Albumin Free T4 Crossmatch 05/05/22 05/05/22 05/05/22 00:05 04:20 04:20 WBC 12.8 H RBC 2.81 L Hgb 8.0 L Hct 24.8 L RDW 16.8 H [place] % (Auto) Lymph # (Auto) Seg Neuts % (Manual) 86.0 H Lymphocytes % (Manual) 4.0 L Nucleated RBC % 1.0 H Seg Neutrophils # Man 11.0 H Lymphocytes # (Manual) 0.5 L PT INR APTT Heparin Anti-Xa Level ABG pH ABG pO2 ABG HCO3 ABG Base Excess ABG Hemoglobin Oxyhemoglobin Sodium 130 L Potassium 3.3 L Chloride 94.0 L Carbon Dioxide BUN 24 H Creatinine 2.3 H Glucose 163 H POC Glucose 163 H Phosphorus 1.50 L Magnesium Troponin T Albumin Free T4 Crossmatch 05/05/22 05:18 WBC RBC Hgb Hct RDW [place] % (Auto) Lymph # (Auto) Seg Neuts % (Manual) Lymphocytes % (Manual) Nucleated RBC % Seg Neutrophils # Man Lymphocytes # (Manual) PT INR APTT Heparin Anti-Xa Level ABG pH ABG pO2 ABG HCO3 ABG Base Excess ABG Hemoglobin Oxyhemoglobin Sodium Potassium Chloride Carbon Dioxide BUN Creatinine Glucose POC Glucose 163 H Phosphorus Magnesium Troponin T Albumin Free T4 Crossmatch Chest x-ray: image reviewed (increasing right lung infiltrates) Allied health notes reviewed: nursing
[2022-05-05 11:16] LABS: ABG Base Excess 2.1 mmol/L (-2.0-3.0); ABG HCO3 27.4 mmol/L (20.0-26.0); ABG Methemoglobin 0.5 % (0.0-1.5); ABG Oxygen Saturation 97.2 % (95.0-99.0); ABG PCO2 45.8 mm Hg; ABG PH 7.395 pH Units (7.350-7.450); ABG PO2 91.7 mm Hg (80.0-90.0)
--- NOTE | 2022-05-05 11:51 | Consultation ---
History of Present Illness - Reason for Consult Consult date: 05/05/22 sepsis Requesting physician: COLLETTE HANNA - History of Present Illness The patient is a 66-year-old female with hypertension, GERD, seizure disorder, ESRD on HD, bipolar disorder, schizophrenia, anxiety was admitted on 04/19/2022 with altered mental status. Upon presentation, noted to be hypoxic, hypotensive, went into supraventricular tachycardia requiring cardioversion. Mentation was slowly improving, gradually was weaned off pressors. Due to inability to cannulate her AV fistula, got a Vas-Cath placed. Due to lack of access, she had a femoral line. On 05/03/2022, patient spiked a fever of 101 F. She was started on empiric antibiotics. Chest x-ray shows bilateral pneumonia, right worse than left. She is currently on 2 pressors. Review of Systems: Limited due to vent Past History Past Medical History: arrhythmia (SVT), dialysis, DVT, ESRD, hypertension, other (See HPI) Past Surgical History: hysterectomy, Other (creation of left arm AVG, repair of left brachial artery pseudoaneurysm with reversed interposition saphenous vein graft, creation of right axillary artery to axillary vein AVG, multiple permacaths) Social history: full code, other (Lives in senior living). denies: smoking, alcohol abuse, prescription drug abuse Family history: other (unable to obtain due to mental status) Medications and Allergies Allergies Allergy/AdvReac Type Severity Reaction Status Date / Time buspirone [From BuSpar] Allergy Unknown Verified 04/18/22 12:22 Penicillins Allergy Rash Verified 04/18/22 12:22 corn AdvReac Unknown Verified 04/18/22 12:22 Home Medications Medication Instructions Recorded Confirmed Last Taken Type Sevelamer Carbonate [Renvela] 0.8 gram PO TIDWM 09/02/20 02/02/22 05/31/21 History HYDROcodone/APAP 5-325 [[place] 1 each PO Q4HR PRN #30 tablet 05/18/21 02/02/22 Unknown Rx 5-325 mg TAB] ALBUTEROL NEB's [Proventil 0.083% 2.5 mg IH Q3HRT PRN #1 nebu 03/03/22 Unknown Rx NEBS] Clopidogrel [Plavix] 75 mg PO QDAY #90 tablet 03/03/[address] [Depakote Dr] 750 mg PO BID #60 tablet 03/03/22 Unknown Rx LORazepam [Ativan] 1 mg PO DAILY #30 tab 03/03/22 Unknown Rx Memantine Xr [Namenda Xr] 5 mg PO DAILY #30 cap 03/03/22 Unknown Rx Midodrine [Proamatine] 10 mg PO TID #90 tab 03/03/22 Unknown Rx Pantoprazole [Protonix TAB] 40 mg PO DAILY #30 tab 03/03/22 Unknown Rx QUEtiapine [SEROquel] 400 mg PO BID #60 tab 03/03/22 Unknown Rx risperiDONE [RisperDAL] 0.5 mg PO BID #60 tab 03/03/22 Unknown Rx Active Meds: Active Medications Acetaminophen (Acetaminophen 325 Mg/10.15 Ml Oral Liqd Unit Dose) 650 mg PO Q6H PRN PRN Reason: Pain MILD(1-3)/Fever >100.5/DRAKE Last Admin: 05/03/22 23:41 Dose: 650 mg Acetylcysteine (Acetylcysteine 10% 100 Mg/1 Ml *For Inhalation Use*) 100 mg INHALATION Q12HRT [facility] Last Admin: 05/05/22 07:54 Dose: Not Given Albumin Human (Albumin Human 25% (25 Gm/100 Ml) Inj) 25 gm IV BIANCA PRN PRN Reason: Hypotension Last Admin: 04/22/22 16:31 Dose: 25 gm Albuterol (Albuterol 2.5 Mg/3 Ml Nebu) 2.5 mg IH Q3HRT PRN PRN Reason: Shortness Of Breath Last Admin: 04/24/22 16:51 Dose: 2.5 mg Albuterol/Ipratropium (Ipratropium/Albuterol Sulfate 3 Ml Ampul.Neb) 1 ampul IH TIDRT [facility] Last Admin: 05/05/22 07:53 Dose: 1 ampul Bisacodyl (Bisacodyl 10 Mg Rect Supp) 10 mg ND QDAY [facility] Stop: 05/06/22 09:59 Last Admin: 05/05/22 09:44 Dose: Not Given Docusate Sodium (Docusate Sodium 100 Mg/10 Ml Oral Liqd) 100 mg FEEDTUBE BID [facility] Last Admin: 05/05/22 09:56 Dose: 100 mg Epoetin Lb-epbx (Epoetin Lb-Epbx 20,000 Unit/1 Ml Vial) 20,000 unit IV BIANCA PRN PRN Reason: HEMODIALYSIS Last Admin: 05/04/22 13:19 Dose: 20,000 unit Fentanyl (Fentanyl 100 Mcg/2 Ml Inj) 50 mcg IV Q10MIN PRN PRN Reason: ANALGESIA Last Admin: 05/05/22 05:29 Dose: 50 mcg Sodium Chloride (Nacl 0.9%) 100 mls @ 999 mls/hr IV BIANCA PRN PRN Reason: Hypotension Fentanyl Citrate (Fentanyl Drip Premix) 2,000 mcg in 100 mls @ 2.722 mls/hr IV TITR [facility]; Protocol NORepinephrine/NS 8 MG-250 ML (Norepinephrine/Ns 8 Mg-250 Ml (Double Conc)) 8 mg in 250 mls @ 3.75 mls/hr IV TITRATE [facility]; Protocol Last Titration: 05/05/22 10:26 Dose: 10 mcg/min, 18.75 mls/hr Vasopressin 20 unit/ Sodium (Chloride) 101 mls @ 9.09 mls/hr IV TITR [facility] Last Admin: 05/05/22 09:46 Dose: 0.03 units/min, 9.09 mls/hr Cefepime HCl (Cefepime/Ns 1 Gm/100 Ml) 1 gm in 100 mls @ 200 mls/hr IV QPM [facility]; Protocol Last Infusion: 05/04/22 19:19 Dose: Infused Lansoprazole (Lansoprazole 30 Mg Solutab) 30 mg FEEDTUBE QDAY [facility] Last Admin: 05/05/22 09:44 Dose: 30 mg Lorazepam (Lorazepam 0.5 Mg Tab) 0.5 mg FEEDTUBE QDAY PRN PRN Reason: Anxiety Memantine (Memantine 5 Mg Tab) 5 mg FEEDTUBE BID [facility] Last Admin: 05/05/22 09:57 Dose: 5 mg Metoclopramide HCl (Metoclopramide 10 Mg/2 Ml Inj) 5 mg IV Q6H PRN PRN Reason: Nausea And Vomiting Midodrine (Midodrine 10 Mg Tab) 20 mg FEEDTUBE TID [facility] Last Admin: 05/05/22 09:44 Dose: 20 mg Naloxone HCl (Naloxone 0.4 Mg/1 Ml Inj) 0.1 mg IV Q2MIN PRN PRN Reason: Res Rate </= 8 or 02 SAT < 92% Polyethylene Glycol (Polyethylene Glycol 3350 17 Gm Powder) 17 gm FEEDTUBE QDAY [facility] Last Admin: 05/05/22 09:55 Dose: 17 gm Risperidone (Risperidone 1 Mg Tab) 0.5 mg FEEDTUBE BID [facility] Last Admin: 05/05/22 09:44 Dose: 0.5 mg Scopolamine (Scopolamine Transdermal Patch 72 Hr) 1 each TD Q3D [facility] Last Admin: 05/05/22 09:45 Dose: 1 each Senna (Sennosides 8.6 Mg Tab) 17.2 mg FEEDTUBE BID [facility] Last Admin: 05/05/22 09:55 Dose: 17.2 mg Sodium Chloride (Sodium Chloride 0.9% 10 Ml Flush Syringe) 10 ml IV BID [facility] Last Admin: 05/05/22 09:45 Dose: 10 ml Sodium Chloride (Sodium Chloride 0.9% 10 Ml Flush Syringe) 10 ml IV PRN PRN PRN Reason: LINE FLUSH Valproic Acid (Valproic Acid 250 Mg/5 Ml Oral Liqd) 750 mg FEEDTUBE BID [facility] Last Admin: 05/05/22 09:43 Dose: 750 mg Physical Examination - Physical Exam Narrative exam: Physical Exam: Constitutional: sedated, intubated, on the vent Head, Ears, Nose: Normocephalic, atraumatic. External ears, nose normal Eyes: Conjunctivae/corneas clear. No icterus. No ptosis. Neck: intubated Oral: intubated Cardiovascular: S1, S2 + Respiratory: AE fair bilaterally and equal GI: Soft, bowel sounds hypo-, G-tube present Musculoskeletal: Edematous upper extremities. Right femoral line present Skin: No rash or abscess Hem/Lymphatic: No palpable cervical or supraclavicular nodes. No lymphangitis Psych: no agitation Neurological: sedated, intubated, on the vent, exam limited - Constitutional Vitals: Vital Signs Temp Pulse Resp BP Pulse Ox 99 F 105 H 15 100/40 100 05/05/22 08:00 05/05/22 11:25 05/05/22 11:00 05/05/22 11:25 05/05/22 11:25 Temperature -Last 24 Hours Temperature 99 F Temperature 99 F Temperature 99.8 F Temperature 100.5 F Temperature 98.8 F Temperature 99.0 F Temperature 98.0 F Results - Labs CBC & Chem 7: 05/05/22 04:20 05/05/22 04:20 Labs: Abnormal lab results 05/04/22 05/04/22 05/05/22 Range/Units 12:55 18:10 00:05 WBC (4.5-11.0) K/mm3 RBC (3.65-5.03) M/mm3 Hgb (10.1-14.3) gm/dl Hct (30.3-42.9) % RDW (13.2-15.2) % Seg Neuts % (Manual) (40.0-70.0) % Lymphocytes % (Manual) (13.4-35.0) % Nucleated RBC % (0.0-0.9) % Seg Neutrophils # Man (1.8-7.7) K/mm3 Lymphocytes # (Manual) (1.2-5.4) K/mm3 ABG pO2 (80.0-90.0) mm Hg ABG HCO3 (20.0-26.0) mmol/L ABG Hemoglobin (12.0-16.0) gm/dl Sodium (137-145) mmol/L Potassium (3.6-5.0) mmol/L Chloride (98-107) mmol/L BUN (7-17) mg/dL Creatinine (0.6-1.2) mg/dL Glucose (65-100) mg/dL POC Glucose 141 H 143 H 163 H (70-105) mg/dL Phosphorus (2.5-4.5) mg/dL 05/05/22 05/05/22 05/05/22 Range/Units 04:20 04:20 05:18 WBC 12.8 H (4.5-11.0) K/mm3 RBC 2.81 L (3.65-5.03) M/mm3 Hgb 8.0 L (10.1-14.3) gm/dl Hct 24.8 L (30.3-42.9) % RDW 16.8 H (13.2-15.2) % Seg Neuts % (Manual) 86.0 H (40.0-70.0) % Lymphocytes % (Manual) 4.0 L (13.4-35.0) % Nucleated RBC % 1.0 H (0.0-0.9) % Seg Neutrophils # Man 11.0 H (1.8-7.7) K/mm3 Lymphocytes # (Manual) 0.5 L (1.2-5.4) K/mm3 ABG pO2 (80.0-90.0) mm Hg ABG HCO3 (20.0-26.0) mmol/L ABG Hemoglobin (12.0-16.0) gm/dl Sodium 130 L (137-145) mmol/L Potassium 3.3 L (3.6-5.0) mmol/L Chloride 94.0 L (98-107) mmol/L BUN 24 H (7-17) mg/dL Creatinine 2.3 H (0.6-1.2) mg/dL Glucose 163 H (65-100) mg/dL POC Glucose 163 H (70-105) mg/dL Phosphorus 1.50 L (2.5-4.5) mg/dL 05/05/22 Range/Units 10:06 WBC (4.5-11.0) K/mm3 RBC (3.65-5.03) M/mm3 Hgb (10.1-14.3) gm/dl Hct (30.3-42.9) % RDW (13.2-15.2) % Seg Neuts % (Manual) (40.0-70.0) % Lymphocytes % (Manual) (13.4-35.0) % Nucleated RBC % (0.0-0.9) % Seg Neutrophils # Man (1.8-7.7) K/mm3 Lymphocytes # (Manual) (1.2-5.4) K/mm3 ABG pO2 91.7 H (80.0-90.0) mm Hg ABG HCO3 27.4 H (20.0-26.0) mmol/L ABG Hemoglobin 11.4 L (12.0-16.0) gm/dl Sodium (137-145) mmol/L Potassium (3.6-5.0) mmol/L Chloride (98-107) mmol/L BUN (7-17) mg/dL Creatinine (0.6-1.2) mg/dL Glucose (65-100) mg/dL POC Glucose (70-105) mg/dL Phosphorus (2.5-4.5) mg/dL - Imaging and Cardiology Chest x-ray: report reviewed, image reviewed (R sided pneumonia) Assessment and Plan Cultures: 04/19/2022 blood culture: No growth 05/03/2022 respiratory culture: Staph aureus 05/04/2022 blood culture: In process A/P: 66-year-old female with hypertension, GERD, seizure disorder, ESRD on HD, bipolar disorder, schizophrenia, anxiety was admitted on 04/19/2022 with altered mental status: #Septic shock: On 2 pressors. Remains on the vent. #Bilateral pneumonia: Right worse than left. Sputum growing Staph aureus. #ESRD on HD: Renally adjust antibiotics. #Acute hypoxic respiratory failure: On mechanical ventilation. #SVT s/p cardioversion Recs: -Continue cefepime, vancomycin, renally adjusted -Follow-up blood and sputum cultures Gloria Cardenas MD, FACP, [facility] O: [phone] F: [phone] C: [phone]
--- NOTE | 2022-05-05 11:54 | Progress Note ---
<COLLETTE HANNA - Last Filed: 05/05/22 18:55> Assessment and Plan Assessment and plan: This is a 66-year-old female with known past medical history of HTN, GERD, Seizure disorder, vascular dementia, ESRD on HD(TTS), OA, bipolar disorder, schizophrenia, anxiety disorder, and limited mobility admitted for Acute hypxic respiratory, hypotension, and SVT s/p X2 doses adenosine and cardioversion. Hospital Course to Date: 04/20: Patient went into Afib with RVR overnight, now on amiodarone gtt per yan cuello. Patient remains in AFib with RVR this am, HR in the 120-140s. BP marginal on Levophed gtt, currently not a candidate for BB. Midodrine increased to 15mg TID. 2D Echo pending. On heparin gtt per protocol. No HD today per nephro due to hypotension and tachycardia. 04/21: Converted to SR this am, remains on Amiodarone and heparin. Awaiting cardio final recommendations. Still on Levophed gtt for low BP, given patient history of chronic hypotension, Wean pressor for MAP goal of 60s. Patient is pocketing foods, currently NPO, awaiting speech eval and treat. 04/22: Patient passed speech swallow eval yesterday, however, patient is refusing PO intakes including meds. Will insert DHT for nutrition and meds administration. Patient remains in SR this am, amiodaron gtt transitioned to PO per cardio. Patient remains on heparin and Levophed gtt. Patient has not received PO midrodrine for 24hrs, resume meds once DHT is inserted. Keep femoral CVC for another 24hrs, anticipating will be able to wean off pressor once patient receive midodrine. Will reassess in the morning. No HD overnight, unable to cannulate AVF, plan to attempt again today per Nephro. Possible IR/Vascular surgery consult if unsuccessful again today. 04/23: Mentation a lot better this am. DHT was inserted, meds resumed and TF initiated. Levophed gtt increased overnight due to worsen hypotension, suspected it is due to sedative agents. Seroquel decreased to 200mg BID and scheduled ativan switched to PRN. Continue midodrine TID and wean off levophed gtt for MAP goal of 60. Patient tolerated HD yesterday, continue iHD per Nephrology. CCM recommendations noted, Chest US ordered for pleural effusion. 04/24: RN instructed to wean Levophed off, goal MAP of 60. Heparin drip stopped due to decreasing hemoglobin. 04/25: had cleared the patient for pured diet which will be started today, hemodialysis planned for today, patient was to be anemic and will receive 1 unit PRBC with HD. We will increase midodrine to 20 mg 3 times daily if patient becomes hypotensive during dialysis. Per CCM. Decrease in seroqoul but will increase if needed 04/26: Patient agreeable to PEG, GI consulted for placement. Femoral line removed 04/27: No acute events reported overnight, patient has been cardiac cleared for PEG tube placement. Possible PEG in the a.m. This afternoon attempted to place IJ CVL which was unsuccessful and Dr. Mcguire ultimately placed femoral CVL for the initiation of Levophed. HD scheduled for today. 04/28: Patient initially started on Levophed yesterday and she received a femoral CVL. 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 Vascular surgery was consulted. Patient also noted to be anemic and received 1 unit PRBC today. 04/29: Possible hemodialysis today, patient was able to be weaned off of Levophed today. Hemoglobin responded well to 1 unit PRBC. Awaiting trach/PEG placement. Patient will not need to be started on heparin drip per vascular surgery. No acute events reported overnight. 04/30: HD yesterday without removal of fluids, patient needs NT suctioning. Updated son today. 05/01: Patient with increase mucous production and is unable to fully clear her airway, Rhonchi auscultated throughout her lungs this am. SPO2 at 90 to 94% on 3L NC. D/W CCM, patient is high risk for aspiration will placed patient on heated HF at 40L for now instead of Bipap. Nasal bleeding also noted, mostly due to NT suctioning. Refrain from NT suctioning for now due to bleeding, only oral suctioning. PO seroquel held this amP atient is AAO, appropriate, and following commands. Levophed gtt weaned off, patient remains hemodynamically stable. Will discuss Nephro for possible fluid removal tonight or early tomorrow. Very low threshold for intubation. Patient's condition and plan of care, including possible intubation, thoroughly discussed with patient's son-Raymundo Randolph at . Patient's son verbalized understanding of the info provided and agreed with intubation if necessary. 05/02: Remains on HHFL at 40% and 40L, mentation is unchanged. HD at the bedside, plan for possible UF with fluid removal today. Continue O2 supplementation and wean as tolerated, for SPO2 above 92%. Repeat CXR in the am. Patient vital signs remains stable, still off pressors. Plan for possible PEG-tube placement by GI tomorrow, NPO after MN. Possible fistulogram for RIJ thrombus on or sunday per Vascular Surgery. 05/03: Complete white-out of right side from this am CXR, probable mucus plug. S/p intubation and bronch at the bedside by [facility]. Patient remains sedated and required short duration of Levophed gtt during the procedure. Pressor was wean off, VSS. Plan for CPT and mucomyst Q12hrs. Repeat CXR in the am. PEG-Tube placement postpone for possibly tomorrow if patient remains stable. Possible fistulogram for RIJ thrombus on or Sunday per Vascular Surgery. 05/04: Remains on the vent, easily arousable. High fevers overnight with spike in leukocytosis, now on 2 pressors. CCM d/w ID, recommendations to repeat blood cultures and empiric IV abx- Cefepine and Vanco. low H&H this am, no s/s of any active bleeding, 1units of PRBCs during iHD today. S/p PEG-tube placement at this bedside this am by GI, no complications noted. Resume TF once clear by GI. 05/05: Remains on low vent setting. This am CXR with increase opacities on the right side again today, s/p therapeutic bronch at the bedside today by [facility]. Repeat CXR in the am. Remains with low grade fevers and on 2 pressors. Bronchial wash with Staph A. and blood cultures pending. Continue current IV Abx per ID. Assessement and Plan #Atrial Fibrillation with RVR #Supraventricular Tachycardia s/p Cardioversion #Acute on Chronic Hypotension #NSTEMI Type 2 - Presented with AMS, Tachycardia, and hypotension requiring pressors - was found in SVT in the ED s/p unsuccessful X2 doses of adenosine then cardioversion. - Patient initially converted to SR post cardioversion, then went into afib RVR in the ICU - Elevated troponin most likely related to ESRD - Cardiology consulted, appreciate recommendations - s/p Amio gtt now on PO per Cardio. Patient remains in SR - On 2 pressors this am, with fevers and leukocytosis - Continue Midodrine TID - Continue blood pressure monitor per protocol - Titrate pressors for MAP goal of 60 - Not a candidate for MARGOTH, ARB, and BB due to hypotension - 2D Echo EF 60-65% - on Lipitor and Plavix - CCM also following #Septic Shock #Bilateral Pneumonia - With fevers, worsen leukocytosis, and now on 2 pressors - Imaging with bilateral opacities, Rt>Lt - Bronch wash with staph A., blood cultures pending - ID consulted, appreciated recommendation - Continue empiric IV Abx- Cefepine and Vanco - F/U on cultures - Daily CBC monitor #Acute Hypoxic Respiratory Failure #Moderate Pleural Effusion - with worsening respiratory status this am - Complete white-out of right side from this am CXR, probable mucus plug - 05/01 s/p Intubation and bronch at the bedside by [facility] - This am CXR with increase opacities on the right side again today - 05/05 s/p therapeutic bronch at the bedside today by [facility] - Vent setting: PRVC-35%,10,14,450 - This am ABG noted - CCM consulted, appreciate recommendations - Plan for CPT at least 4 to 6 times a day, and Mucomyst TID - VAP bundle addressed - Aspiration precaution HOB above 30 - Daily SBT and SAT trials as tolerated - Daily ABG and CXR - Continue SPO2 monitoring for SPO2 goal above 92% #Acute Metabolic Encephalopathy #H/o Vascular Dementia #Severe Anxiety #Bipolar Disorder & Schizophrenia - Presented with AMS, probably due to above - s/p intubation, arousable, not on any sedations - No continue sedation gtt warranted at this time - Continue home meds - PRN Analgesia for pain control/vent synchrony - Maintenance of sleep-wake cycle - Mental Health/Psych on consult #End-Stage Renal Disease(ESRD) on HD - Nephrology on consult, appreciated recommendations - Continue iHD per Nephro - Strict intake and output - Avoid nephrotoxic medications; Renally dose medications - Monitor and replace electrolytes as needed #Anemia of Chronic Disease #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 Plan for possible vascular intervention sometimes this week - AC on hold due to worsen anemia #H/o Seizure Disorder - Resume home meds #Dysphagia #Moderate Protein Caloric Malnutrition - Failed speech swallow- they recommended PEG-Tube - GI consulted, appreciate recommendation - 05/04 s/p PEG-tube placement at this bedside this am by GI - Resume TF once cleared by GI - Nutrition consulted #GI/DVT Prophylaxis - PPI- Protonix - SCDs to bilateral lower extremities while in bed #Advance Care Planning - Disease education data, care plan, diagnoses, and prognosis were discussed with patient's son at the bedside. Patient is a FULL code. Patient acknowledged understanding and agreed with current care plan. The high probability of a clinically significant, sudden or life threatening deterioration of the [multiple] system(s) required my full and direct attention, intervention and personal management. The aggregate critical care time was [60] minutes. This time is in addition to time spent performing reported procedures but includes the following: [x] Data Review and interpretation [x] Patient assessment and monitoring of vital signs [x] Documentation [x] Medication orders and management Disposition Plan: ICU Total Time Spent with Patient (Minutes): 60 History Interval history: Patient seen and examined at the bedside. Remains on the vent, s/p therapeutic bronch at the bedside by [facility]. Patient is lethargic but easily arousable, not on any sedation. Still with low grade fevers this am. Remains on 2 pressors. GUERRERO overnight Hospitalist Physical - Physical exam Narrative exam: General appearance: Present: No acute distress, well-nourished, obese, Other (Intubated, not on any sedation. Drowsy but easily arousable) - EENT Eyes: Present: PERRL ENT: hearing intact, poor dentition - Neck Neck: Present: normal ROM - Respiratory Respiratory effort: normal Respiratory: bilateral: diminished - Cardiovascular Rhythm: irregularly irregular Heart Sounds: Present: S1 & S2 - Extremities Extremities: no ischemia, pulses intact, pulses symmetrical Extremity abnormal: edema - Peripheral Assessment Generalized Edema Type: pitting Edema Degree: 2+ Capillary Refill: < 3 seconds Skin Temperature: Warm Peripheral Pulses: within normal limits Right Upper Extremity Edema Type: pitting Edema Degree: 3+ Capillary Refill: < 3 seconds Skin Temperature: Warm Peripheral Pulses: within normal limits - Abdominal General gastrointestinal: soft, non-distended, normal bowel sounds - Integumentary Integumentary: Present: warm, dry - Psychiatric Psychiatric: appropriate mood/affect, cooperative, other (Intubated, not on any sedation. Drowsy but easily arousable) - Neurologic Neurologic: moves all extremities, other (Intubated, not on any sedation. Drowsy but easily arousable) - Allied Health Allied health notes reviewed: nursing, case management - Constitutional Vitals: Temp Pulse Resp BP Pulse Ox 99 F 105 H 15 100/40 100 05/05/22 08:00 05/05/22 11:25 05/05/22 11:00 05/05/22 11:25 05/05/22 11:25 HEART Score - HEART Score Troponin: Troponin T 0.415 ng/mL (0.00-0.029) H* 04/19/22 04:53 Results - Labs CBC & Chem 7: 05/05/22 04:20 05/05/22 04:20 Labs: Laboratory Last Values WBC 12.8 K/mm3 (4.5-11.0) H 05/05/22 04:20 RBC 2.81 M/mm3 (3.65-5.03) L 05/05/22 04:20 Hgb 8.0 gm/dl (10.1-14.3) L 05/05/22 04:20 Hct 24.8 % (30.3-42.9) L 05/05/22 04:20 MCV 88 fl (79-97) 05/05/22 04:20 MCH 29 pg (28-32) 05/05/22 04:20 MCHC 33 % (30-34) 05/05/22 04:20 RDW 16.8 % (13.2-15.2) H 05/05/22 04:20 Plt Count 156 K/mm3 (140-440) 05/05/22 04:20 Lymph % (Auto) 26.7 % (13.4-35.0) 04/20/22 05:30 [place] % (Auto) 15.2 % (0.0-7.3) H 04/20/22 05:30 Eos % (Auto) 3.8 % (0.0-4.3) 04/20/22 05:30 Baso % (Auto) 1.2 % (0.0-1.8) 04/20/22 05:30 Lymph # (Auto) 1.1 K/mm3 (1.2-5.4) L 04/20/22 05:30 [place] # (Auto) 0.6 K/mm3 (0.0-0.8) 04/20/22 05:30 Eos # (Auto) 0.2 K/mm3 (0.0-0.4) 04/20/22 05:30 Baso # (Auto) 0.0 K/mm3 (0.0-0.1) 04/20/22 05:30 Add Manual Diff Complete 05/05/22 04:20 Total Counted 100 05/05/22 04:20 Seg Neutrophils % 53.1 % (40.0-70.0) 04/20/22 05:30 Seg Neuts % (Manual) 86.0 % (40.0-70.0) H 05/05/22 04:20 Band Neutrophils % 3.0 % 05/05/22 04:20 Lymphocytes % (Manual) 4.0 % (13.4-35.0) L 05/05/22 04:20 Reactive Lymphs % (Man) 0 % 05/05/22 04:20 Monocytes % (Manual) 6.0 % (0.0-7.3) 05/05/22 04:20 Eosinophils % (Manual) 1.0 % (0.0-4.3) 05/05/22 04:20 Basophils % (Manual) 0 % (0.0-1.8) 05/05/22 04:20 Metamyelocytes % 0 % 05/05/22 04:20 Myelocytes % 0 % 05/05/22 04:20 Promyelocytes % 0 % 05/05/22 04:20 Blast Cells % 0 % 05/05/22 04:20 Nucleated RBC % 1.0 % (0.0-0.9) H 05/05/22 04:20 Seg Neutrophils # 2.2 K/mm3 (1.8-7.7) 04/20/22 05:30 Seg Neutrophils # Man 11.0 K/mm3 (1.8-7.7) H 05/05/22 04:20 Band Neutrophils # 0.4 K/mm3 05/05/22 04:20 Lymphocytes # (Manual) 0.5 K/mm3 (1.2-5.4) L 05/05/22 04:20 Abs React Lymphs (Man) 0.0 K/mm3 05/05/22 04:20 Monocytes # (Manual) 0.8 K/mm3 (0.0-0.8) 05/05/22 04:20 Eosinophils # (Manual) 0.1 K/mm3 (0.0-0.4) 05/05/22 04:20 Basophils # (Manual) 0.0 K/mm3 (0.0-0.1) 05/05/22 04:20 Metamyelocytes # 0.0 K/mm3 05/05/22 04:20 Myelocytes # 0.0 K/mm3 05/05/22 04:20 Promyelocytes # 0.0 K/mm3 05/05/22 04:20 Blast Cells # 0.0 K/mm3 05/05/22 04:20 WBC Morphology Not Reportable 05/05/22 04:20 Hypersegmented Neuts Not Reportable 05/05/22 04:20 Hyposegmented Neuts Not Reportable 05/05/22 04:20 Hypogranular Neuts Not Reportable 05/05/22 04:20 Smudge Cells Not Reportable 05/05/22 04:20 Toxic Granulation Not Reportable 05/05/22 04:20 Toxic Vacuolation Not Reportable 05/05/22 04:20 Dohle Bodies Not Reportable 05/05/22 04:20 Pelger-Huet Anomaly Not Reportable 05/05/22 04:20 Ubaldo Rods Not Reportable 05/05/22 04:20 Platelet Estimate Consistent w auto 05/05/22 04:20 Clumped Platelets Not Reportable 05/05/22 04:20 Plt Clumps, EDTA Not Reportable 05/05/22 04:20 Large Platelets Not Reportable 05/05/22 04:20 Giant Platelets Not Reportable 05/05/22 04:20 Platelet Satelliting Not Reportable 05/05/22 04:20 Plt Morphology Comment Not Reportable 05/05/22 04:20 RBC Morphology Not Reportable 05/05/22 04:20 Dimorphic RBCs Not Reportable 05/05/22 04:20 Polychromasia Not Reportable 05/05/22 04:20 Hypochromasia 2+ 05/05/22 04:20 Poikilocytosis Not Reportable 05/05/22 04:20 Anisocytosis 1+ 05/05/22 04:20 Microcytosis Not Reportable 05/05/22 04:20 Macrocytosis Not Reportable 05/05/22 04:20 Spherocytes Not Reportable 05/05/22 04:20 Pappenheimer Bodies Not Reportable 05/05/22 04:20 Sickle Cells Not Reportable 05/05/22 04:20 Target Cells Not Reportable 05/05/22 04:20 Tear Drop Cells Not Reportable 05/05/22 04:20 Ovalocytes Not Reportable 05/05/22 04:20 Helmet Cells Not Reportable 05/05/22 04:20 [place] Bodies Not Reportable 05/05/22 04:20 [place] Rings Not Reportable 05/05/22 04:20 [place] Cells Not Reportable 05/05/22 04:20 Bite Cells Not Reportable 05/05/22 04:20 Crenated Cell Not Reportable 05/05/22 04:20 Elliptocytes Not Reportable 05/05/22 04:20 Acanthocytes (Spur) Not Reportable 05/05/22 04:20 Rouleaux Not Reportable 05/05/22 04:20 Hemoglobin C Crystals Not Reportable 05/05/22 04:20 Schistocytes Not Reportable 05/05/22 04:20 Malaria parasites Not Reportable 05/05/22 04:20 [place] Bodies Not Reportable 05/05/22 04:20 Hem Pathologist Commnt No 05/05/22 04:20 PT 17.6 Sec. (12.2-14.9) H 05/04/22 04:26 INR 1.29 (0.87-1.13) H 05/04/22 04:26 APTT 39.4 Sec. (24.2-36.6) H 05/03/22 04:24 Heparin Anti-Xa Level < 0.10 U.I./ml (0.3-0.7) L 04/24/22 10:20 ABG pH 7.395 pH Units (7.350-7.450) 05/05/22 10:06 ABG pCO2 45.8 mm Hg 05/05/22 10:06 ABG pO2 91.7 mm Hg (80.0-90.0) H 05/05/22 10:06 ABG HCO3 27.4 mmol/L (20.0-26.0) H 05/05/22 10:06 ABG O2 Saturation 97.2 % (95.0-99.0) 05/05/22 10:06 ABG O2 Content 15.4 (0.0-44) 05/05/22 10:06 ABG Base Excess 2.1 mmol/L (-2.0-3.0) 05/05/22 10:06 ABG Hemoglobin 11.4 gm/dl (12.0-16.0) L 05/05/22 10:06 ABG Carboxyhemoglobin 1.6 % (0.0-5.0) 05/05/22 10:06 ABG Methemoglobin 0.5 % (0.0-1.5) 05/05/22 10:06 Oxyhemoglobin 95.1 % (95.0-99.0) 05/05/22 10:06 FiO2 35 % 05/05/22 10:06 Sodium 130 mmol/L (137-145) L 05/05/22 04:20 Potassium 3.3 mmol/L (3.6-5.0) L 05/05/22 04:20 Chloride 94.0 mmol/L (98-107) L 05/05/22 04:20 Carbon Dioxide 26 mmol/L (22-30) 05/05/22 04:20 Anion Gap 13 mmol/L 05/05/22 04:20 BUN 24 mg/dL (7-17) H 05/05/22 04:20 Creatinine 2.3 mg/dL (0.6-1.2) H 05/05/22 04:20 Estimated GFR 26 ml/min 05/05/22 04:20 BUN/Creatinine Ratio 10 % 05/05/22 04:20 Glucose 163 mg/dL (65-100) H 05/05/22 04:20 POC Glucose 163 mg/dL (70-105) H 05/05/22 05:18 Lactic Acid 1.60 mmol/L (0.7-2.0) 04/19/22 07:14 Calcium 8.9 mg/dL (8.4-10.2) 05/05/22 04:20 Phosphorus 1.50 mg/dL (2.5-4.5) L 05/05/22 04:20 Magnesium 1.90 mg/dL (1.7-2.3) 05/05/22 04:20 Total Bilirubin 0.30 mg/dL (0.1-1.2) 04/20/22 05:30 AST 11 units/L (5-40) 04/20/22 05:30 ALT 7 units/L (7-56) 04/20/22 05:30 Alkaline Phosphatase 101 units/L (35-129) 04/20/22 05:30 Ammonia 25.0 umol/L (25-60) 04/19/22 04:53 Troponin T 0.415 ng/mL (0.00-0.029) H* 04/19/22 04:53 Total Protein 6.4 g/dL (6.3-8.2) 04/20/22 05:30 Albumin 2.4 g/dL (3.9-5) L 04/20/22 05:30 Albumin/Globulin Ratio 0.6 % 04/20/22 05:30 Procalcitonin 42.42 ng/mL (<0.15) 05/05/22 04:20 TSH 1.700 mlU/mL (0.270-4.200) 04/19/22 04:53 Free T4 0.28 ng/dL (0.76-1.46) L 04/19/22 04:53 Total Cortisol 24.4 mcg/dL () 04/27/22 04:45 Coronavirus (PCR) Negative (Negative) 05/03/22 11:30 Hepatitis A IgM Ab Non-reactive (NonReactive) 04/19/22 04:53 Hep Bs Antigen Non-reactive (Negative) 04/19/22 04:53 Hep B Core IgM Ab Non-reactive (NonReactive) 04/19/22 04:53 Hepatitis C Antibody Non-reactive (NonReactive) 04/19/22 04:53 Blood Type A POSITIVE 05/04/22 05:30 Antibody Screen Negative 05/04/22 05:30 Crossmatch See Detail 05/04/22 05:30 Microbiology: Microbiology 05/04/22 16:30 Peripheral/Venous Blood Culture - Preliminary Culture in Progress 05/04/22 16:30 Peripheral/Venous Blood Culture - Preliminary Culture in Progress 05/03/22 10:30 Bronchial Washings - Right Lower Lobe Respiratory Culture - Preliminary Staphylococcus Aureus Cleary/IV: Voiding Method Incontinent Active Medications - Current Medications Current Medications: Generic Name Dose Route Start Last Admin Trade Name Freq PRN Reason Stop Dose Admin Acetaminophen 650 mg 04/22/22 20:12 05/03/22 23:41 Acetaminophen 325 Mg/10.15 Ml Oral Liqd Unit Dose PO 650 mg Q6H PRN Administration Pain MILD(1-3)/Fever >100.5/DRAKE Acetylcysteine 100 mg 05/03/22 20:00 05/05/22 07:54 Acetylcysteine 10% 100 Mg/1 Ml *For Inhalation Use* INHALATION Not Given Q12HRT CONNOR Albumin Human 25 gm 04/21/22 13:00 04/22/22 16:31 Albumin Human 25% (25 Gm/100 Ml) Inj IV 25 gm BIANCA PRN Administration Hypotension Albuterol 2.5 mg 04/21/22 08:30 04/24/22 16:51 Albuterol 2.5 Mg/3 Ml Nebu IH 2.5 mg Q3HRT PRN Administration Shortness Of Breath Albuterol/Ipratropium 1 ampul 04/21/22 14:00 05/05/22 07:53 Ipratropium/Albuterol Sulfate 3 Ml Ampul.Neb IH 1 ampul TIDRT CONNOR Administration Bisacodyl 10 mg 05/04/22 10:00 05/05/22 09:44 Bisacodyl 10 Mg Rect Supp NC 05/06/22 09:59 Not Given QDAY CONNOR Docusate Sodium 100 mg 05/01/22 22:00 05/05/22 09:56 Docusate Sodium 100 Mg/10 Ml Oral Liqd FEEDTUBE 100 mg BID CONNOR Administration Epoetin Lb-epbx 20,000 unit 04/23/22 12:00 05/04/22 13:19 Epoetin Lb-Epbx 20,000 Unit/1 Ml Vial IV 20,000 unit BIANCA PRN Administration HEMODIALYSIS Fentanyl 50 mcg 05/03/22 10:29 05/05/22 05:29 Fentanyl 100 Mcg/2 Ml Inj IV 50 mcg Q10MIN PRN Administration ANALGESIA Sodium Chloride 100 mls @ 999 mls/hr 04/22/22 09:12 Nacl 0.9% IV BIANCA PRN Hypotension Fentanyl Citrate 2,000 mcg in 100 mls @ 2.722 mls/hr 05/03/22 11:00 Fentanyl Drip Premix IV TITR CONNOR Protocol 1 MCG/KG/HR NORepinephrine/NS 8 MG-250 ML 8 mg in 250 mls @ 3.75 mls/hr 05/03/22 13:15 05/05/22 10:26 Norepinephrine/Ns 8 Mg-250 Ml (Double Conc) IV 10 mcg/min TITRATE CONNOR 18.75 mls/hr Titration Protocol 2 MCG/MIN Vasopressin 20 unit/ Sodium 101 mls @ 9.09 mls/hr 05/04/22 00:30 05/05/22 09:46 Chloride IV 0.03 units/min TITR CONNOR 9.09 mls/hr Administration 0.03 UNITS/MIN Cefepime HCl 1 gm in 100 mls @ 200 mls/hr 05/04/22 18:00 05/04/22 19:19 Cefepime/Ns 1 Gm/100 Ml IV Infused QPM CONNOR Infusion Protocol Lansoprazole 30 mg 04/23/22 10:00 05/05/22 09:44 Lansoprazole 30 Mg Solutab FEEDTUBE 30 mg QDAY CONNOR Administration Lorazepam 0.5 mg 04/25/22 09:59 Lorazepam 0.5 Mg Tab FEEDTUBE QDAY PRN Anxiety Memantine 5 mg 04/25/22 10:00 05/05/22 09:57 Memantine 5 Mg Tab FEEDTUBE 5 mg BID CONNOR Administration Metoclopramide HCl 5 mg 04/19/22 09:55 Metoclopramide 10 Mg/2 Ml Inj IV Q6H PRN Nausea And Vomiting Midodrine 20 mg 04/26/22 14:00 05/05/22 09:44 Midodrine 10 Mg Tab FEEDTUBE 20 mg TID CONNOR Administration Naloxone HCl 0.1 mg 04/19/22 09:55 Naloxone 0.4 Mg/1 Ml Inj IV Q2MIN PRN Res Rate </= 8 or 02 SAT < 92% Polyethylene Glycol 17 gm 05/03/22 10:00 05/05/22 09:55 Polyethylene Glycol 3350 17 Gm Powder FEEDTUBE 17 gm QDAY CONNOR Administration Risperidone 0.5 mg 04/25/22 11:00 05/05/22 09:44 Risperidone 1 Mg Tab FEEDTUBE 0.5 mg BID CONNOR Administration Scopolamine 1 each 05/02/22 10:00 05/05/22 09:45 Scopolamine Transdermal Patch 72 Hr TD 1 each Q3D CONNOR Administration Senna 17.2 mg 04/23/22 10:00 05/05/22 09:55 Sennosides 8.6 Mg Tab FEEDTUBE 17.2 mg BID CONNOR Administration Sodium Chloride 10 ml 04/19/22 12:00 05/05/22 09:45 Sodium Chloride 0.9% 10 Ml Flush Syringe IV 10 ml BID CONNOR Administration Sodium Chloride 10 ml 04/19/22 11:19 Sodium Chloride 0.9% 10 Ml Flush Syringe IV PRN PRN LINE FLUSH Valproic Acid 750 mg 04/22/22 22:00 05/05/22 09:43 Valproic Acid 250 Mg/5 Ml Oral Liqd FEEDTUBE 750 mg BID CONNOR Administration Nutrition/Malnutrition Assess - Dietary Evaluation Nutrition/Malnutrition Findings: Nutrition Notes Start: 04/19/22 1 7:39 Freq: Status: Active Protocol: Document 05/03/22 11:10 MIRIAN (Rec: 05/03/22 11:27 MIRIAN [id number]) Nutrition Notes Initial or Follow up Brief Note Current Diagnosis CKD (stage V CKD),Hypertension ,Respiratory Failure, Malnutrition Other Pertinent Diagnosis Metabolic Encephalopathy, ESRD +HD, Anemia, NSTEMI II, SIRS, Dysphagia... Current Diet NPO (since 05/03 00:01). Height 5 ft 2 in Weight 54.43 kg [place] Body Weight (kg) 50.00 BMI 21.9 Weight change and time frame No body weight change reported in 2 weeks. Weight Status Appropriate Subjective/Other Information RD consult for routine F/U on TF tolerance/continuation assessment. Pt continues on NPO. Pt has been intubated few minutes ago, PEG placement has been deferred for 05/04 if Pt remains stable on the vent, according to Gastroenterology notes. TF will be resumed today and Pt will be NPO from 05/04 00: 01, according to Gastroenterology notes. Percent of energy/protein needs met: Pt temporarily on NPO. Prescribed TF-Nepro w/ CARBSTEADY @ 30 ml/hr provides for energy/protein needs (1, 269 Kcal/58 g) during LOS, 102 % Kcal; 89% AA. #1 Nutrition Diagnosis Swallowing difficulty Diagnosis Progress(for reassessment Continues documentation) Is patient on ventilator? No Is Patient Ambulatory and/or Out of Bed No REE-([facility]-confined to bed) [phone] Calculation Used for Recommendations [facility] Additional Notes Protein: >1.2 g/Kg ABW; >65 g/ day. Fluids: 1-1.5 L/day, or as per MD. Nutrition Intervention Nutrition Support: Resume Nepro w/CARBSTEADY @ 30 ml/hr. Flush: 130 ml water Q 4 hr, or as per MD. Kcal 1,269 Protein (gm) 58 Carbohydrates (gm) 116 Fat (gm) 58 Fluid (mL) 523 Fiber (gm) 9 % RDI: 102% Kcal; 89% AA. Goal #1 Provide at least 75% of energy /protein needs through Enteral Feeding during LOS. Follow-Up By: 05/05/22 Additional Comments Continue monitoring TF tolerance, PEG-tube placement, and BM. <MELINDA BOWEN - Last Filed: 05/06/22 07:38> Assessment and Plan Assessment and plan: I saw and evaluated the patient. I agree with the findings and the plan of care as documented in the Nurse Practitioner's~note, with the following corrections and additions. Hospitalist Physical - Constitutional Vitals: Temp Pulse Resp BP Pulse Ox 98.3 F 64 14 119/57 100 05/06/22 03:08 05/06/22 06:00 05/06/22 06:00 05/06/22 06:00 05/06/22 06:00 HEART Score - HEART Score Troponin: Troponin T 0.415 ng/mL (0.00-0.029) H* 04/19/22 04:53 Results - Labs CBC & Chem 7: 05/06/22 05:02 05/06/22 05:02 Labs: Laboratory Last Values WBC 9.6 K/mm3 (4.5-11.0) 05/06/22 05:02 RBC 2.78 M/mm3 (3.65-5.03) L 05/06/22 05:02 Hgb 7.9 gm/dl (10.1-14.3) L 05/06/22 05:02 Hct 25.1 % (30.3-42.9) L 05/06/22 05:02 MCV 90 fl (79-97) 05/06/22 05:02 MCH 28 pg (28-32) 05/06/22 05:02 MCHC 32 % (30-34) 05/06/22 05:02 RDW 16.7 % (13.2-15.2) H 05/06/22 05:02 Plt Count 119 K/mm3 (140-440) L 05/06/22 05:02 Lymph % (Auto) 26.7 % (13.4-35.0) 04/20/22 05:30 [place] % (Auto) 15.2 % (0.0-7.3) H 04/20/22 05:30 Eos % (Auto) 3.8 % (0.0-4.3) 04/20/22 05:30 Baso % (Auto) 1.2 % (0.0-1.8) 04/20/22 05:30 Lymph # (Auto) 1.1 K/mm3 (1.2-5.4) L 04/20/22 05:30 [place] # (Auto) 0.6 K/mm3 (0.0-0.8) 04/20/22 05:30 Eos # (Auto) 0.2 K/mm3 (0.0-0.4) 04/20/22 05:30 Baso # (Auto) 0.0 K/mm3 (0.0-0.1) 04/20/22 05:30 Add Manual Diff Complete 05/05/22 04:20 Total Counted 100 05/05/22 04:20 Seg Neutrophils % 53.1 % (40.0-70.0) 04/20/22 05:30 Seg Neuts % (Manual) 86.0 % (40.0-70.0) H 05/05/22 04:20 Band Neutrophils % 3.0 % 05/05/22 04:20 Lymphocytes % (Manual) 4.0 % (13.4-35.0) L 05/05/22 04:20 Reactive Lymphs % (Man) 0 % 05/05/22 04:20 Monocytes % (Manual) 6.0 % (0.0-7.3) 05/05/22 04:20 Eosinophils % (Manual) 1.0 % (0.0-4.3) 05/05/22 04:20 Basophils % (Manual) 0 % (0.0-1.8) 05/05/22 04:20 Metamyelocytes % 0 % 05/05/22 04:20 Myelocytes % 0 % 05/05/22 04:20 Promyelocytes % 0 % 05/05/22 04:20 Blast Cells % 0 % 05/05/22 04:20 Nucleated RBC % 1.0 % (0.0-0.9) H 05/05/22 04:20 Seg Neutrophils # 2.2 K/mm3 (1.8-7.7) 04/20/22 05:30 Seg Neutrophils # Man 11.0 K/mm3 (1.8-7.7) H 05/05/22 04:20 Band Neutrophils # 0.4 K/mm3 05/05/22 04:20 Lymphocytes # (Manual) 0.5 K/mm3 (1.2-5.4) L 05/05/22 04:20 Abs React Lymphs (Man) 0.0 K/mm3 05/05/22 04:20 Monocytes # (Manual) 0.8 K/mm3 (0.0-0.8) 05/05/22 04:20 Eosinophils # (Manual) 0.1 K/mm3 (0.0-0.4) 05/05/22 04:20 Basophils # (Manual) 0.0 K/mm3 (0.0-0.1) 05/05/22 04:20 Metamyelocytes # 0.0 K/mm3 05/05/22 04:20 Myelocytes # 0.0 K/mm3 05/05/22 04:20 Promyelocytes # 0.0 K/mm3 05/05/22 04:20 Blast Cells # 0.0 K/mm3 05/05/22 04:20 WBC Morphology Not Reportable 05/05/22 04:20 Hypersegmented Neuts Not Reportable 05/05/22 04:20 Hyposegmented Neuts Not Reportable 05/05/22 04:20 Hypogranular Neuts Not Reportable 05/05/22 04:20 Smudge Cells Not Reportable 05/05/22 04:20 Toxic Granulation Not Reportable 05/05/22 04:20 Toxic Vacuolation Not Reportable 05/05/22 04:20 Dohle Bodies Not Reportable 05/05/22 04:20 Pelger-Huet Anomaly Not Reportable 05/05/22 04:20 Ubaldo Rods Not Reportable 05/05/22 04:20 Platelet Estimate Consistent w auto 05/05/22 04:20 Clumped Platelets Not Reportable 05/05/22 04:20 Plt Clumps, EDTA Not Reportable 05/05/22 04:20 Large Platelets Not Reportable 05/05/22 04:20 Giant Platelets Not Reportable 05/05/22 04:20 Platelet Satelliting Not Reportable 05/05/22 04:20 Plt Morphology Comment Not Reportable 05/05/22 04:20 RBC Morphology Not Reportable 05/05/22 04:20 Dimorphic RBCs Not Reportable 05/05/22 04:20 Polychromasia Not Reportable 05/05/22 04:20 Hypochromasia 2+ 05/05/22 04:20 Poikilocytosis Not Reportable 05/05/22 04:20 Anisocytosis 1+ 05/05/22 04:20 Microcytosis Not Reportable 05/05/22 04:20 Macrocytosis Not Reportable 05/05/22 04:20 Spherocytes Not Reportable 05/05/22 04:20 Pappenheimer Bodies Not Reportable 05/05/22 04:20 Sickle Cells Not Reportable 05/05/22 04:20 Target Cells Not Reportable 05/05/22 04:20 Tear Drop Cells Not Reportable 05/05/22 04:20 Ovalocytes Not Reportable 05/05/22 04:20 Helmet Cells Not Reportable 05/05/22 04:20 [place] Bodies Not Reportable 05/05/22 04:20 [place] Rings Not Reportable 05/05/22 04:20 [place] Cells Not Reportable 05/05/22 04:20 Bite Cells Not Reportable 05/05/22 04:20 Crenated Cell Not Reportable 05/05/22 04:20 Elliptocytes Not Reportable 05/05/22 04:20 Acanthocytes (Spur) Not Reportable 05/05/22 04:20 Rouleaux Not Reportable 05/05/22 04:20 Hemoglobin C Crystals Not Reportable 05/05/22 04:20 Schistocytes Not Reportable 05/05/22 04:20 Malaria parasites Not Reportable 05/05/22 04:20 [place] Bodies Not Reportable 05/05/22 04:20 Hem Pathologist Commnt No 05/05/22 04:20 PT 17.6 Sec. (12.2-14.9) H 05/04/22 04:26 INR 1.29 (0.87-1.13) H 05/04/22 04:26 APTT 39.4 Sec. (24.2-36.6) H 05/03/22 04:24 Heparin Anti-Xa Level < 0.10 U.I./ml (0.3-0.7) L 04/24/22 10:20 ABG pH 7.417 pH Units (7.350-7.450) 05/06/22 04:45 ABG pCO2 41.1 mm Hg 05/06/22 04:45 ABG pO2 112.7 mm Hg (80.0-90.0) H 05/06/22 04:45 ABG HCO3 25.9 mmol/L (20.0-26.0) 05/06/22 04:45 ABG O2 Saturation 98.1 % (95.0-99.0) 05/06/22 04:45 ABG O2 Content 10.8 (0.0-44) 05/06/22 04:45 ABG Base Excess 1.2 mmol/L (-2.0-3.0) 05/06/22 04:45 ABG Hemoglobin 7.8 gm/dl (12.0-16.0) L 05/06/22 04:45 ABG Carboxyhemoglobin 1.6 % (0.0-5.0) 05/06/22 04:45 ABG Methemoglobin 0.5 % (0.0-1.5) 05/06/22 04:45 Oxyhemoglobin 96.1 % (95.0-99.0) 05/06/22 04:45 FiO2 40 % 05/06/22 04:45 Sodium 135 mmol/L (137-145) L 05/06/22 05:02 Potassium 3.3 mmol/L (3.6-5.0) L 05/06/22 05:02 Chloride 97.9 mmol/L (98-107) L 05/06/22 05:02 Carbon Dioxide 24 mmol/L (22-30) 05/06/22 05:02 Anion Gap 16 mmol/L 05/06/22 05:02 BUN 30 mg/dL (7-17) H 05/06/22 05:02 Creatinine 2.7 mg/dL (0.6-1.2) H 05/06/22 05:02 Estimated GFR 21 ml/min 05/06/22 05:02 BUN/Creatinine Ratio 11 % 05/06/22 05:02 Glucose 148 mg/dL (65-100) H 05/06/22 05:02 POC Glucose 146 mg/dL (70-105) H 05/06/22 04:59 Lactic Acid 1.60 mmol/L (0.7-2.0) 04/19/22 07:14 Calcium 9.1 mg/dL (8.4-10.2) 05/06/22 05:02 Phosphorus 1.50 mg/dL (2.5-4.5) L 05/06/22 05:02 Magnesium 1.90 mg/dL (1.7-2.3) 05/06/22 05:02 Total Bilirubin 0.30 mg/dL (0.1-1.2) 04/20/22 05:30 AST 11 units/L (5-40) 04/20/22 05:30 ALT 7 units/L (7-56) 04/20/22 05:30 Alkaline Phosphatase 101 units/L (35-129) 04/20/22 05:30 Ammonia 25.0 umol/L (25-60) 04/19/22 04:53 Troponin T 0.415 ng/mL (0.00-0.029) H* 04/19/22 04:53 Total Protein 6.4 g/dL (6.3-8.2) 04/20/22 05:30 Albumin 2.4 g/dL (3.9-5) L 04/20/22 05:30 Albumin/Globulin Ratio 0.6 % 04/20/22 05:30 Procalcitonin 42.42 ng/mL (<0.15) 05/05/22 04:20 TSH 1.700 mlU/mL (0.270-4.200) 04/19/22 04:53 Free T4 0.28 ng/dL (0.76-1.46) L 04/19/22 04:53 Total Cortisol 24.4 mcg/dL () 04/27/22 04:45 Coronavirus (PCR) Negative (Negative) 05/03/22 11:30 Hepatitis A IgM Ab Non-reactive (NonReactive) 04/19/22 04:53 Hep Bs Antigen Non-reactive (Negative) 04/19/22 04:53 Hep B Core IgM Ab Non-reactive (NonReactive) 04/19/22 04:53 Hepatitis C Antibody Non-reactive (NonReactive) 04/19/22 04:53 Blood Type A POSITIVE 05/04/22 05:30 Antibody Screen Negative 05/04/22 05:30 Crossmatch See Detail 05/04/22 05:30 Microbiology: Microbiology 05/04/22 16:30 Peripheral/Venous Blood Culture - Preliminary NO GROWTH AFTER 24 HOURS 05/04/22 16:30 Peripheral/Venous Blood Culture - Preliminary NO GROWTH AFTER 24 HOURS [place]/IV: Voiding Method Incontinent Active Medications - Current Medications Current Medications: Generic Name Dose Route Start Last Admin Trade Name Freq PRN Reason Stop Dose Admin Acetaminophen 650 mg 04/22/22 20:12 05/03/22 23:41 Acetaminophen 325 Mg/10.15 Ml Oral Liqd Unit Dose PO 650 mg Q6H PRN Administration Pain MILD(1-3)/Fever >100.5/DRAKE Acetylcysteine 200 mg 05/05/22 14:00 05/05/22 21:02 Acetylcysteine 20% 200 Mg/1 Ml *For Inhalation Use* INHALATION 05/10/22 13:59 Not Given TID CONNOR Albumin Human 25 gm 04/21/22 13:00 04/22/22 16:31 Albumin Human 25% (25 Gm/100 Ml) Inj IV 25 gm BIANCA PRN Administration Hypotension Albuterol 2.5 mg 04/21/22 08:30 04/24/22 16:51 Albuterol 2.5 Mg/3 Ml Nebu IH 2.5 mg Q3HRT PRN Administration Shortness Of Breath Albuterol/Ipratropium 1 ampul 04/21/22 14:00 05/05/22 21:01 Ipratropium/Albuterol Sulfate 3 Ml Ampul.Neb IH 1 ampul TIDRT CONNOR Administration Bisacodyl 10 mg 05/04/22 10:00 05/05/22 09:44 Bisacodyl 10 Mg Rect Supp NC 05/06/22 09:59 Not Given QDAY CONNOR Docusate Sodium 100 mg 05/01/22 22:00 05/05/22 23:18 Docusate Sodium 100 Mg/10 Ml Oral Liqd FEEDTUBE 100 mg BID CONNOR Administration Epoetin Lb-epbx 20,000 unit 04/23/22 12:00 05/04/22 13:19 Epoetin Lb-Epbx 20,000 Unit/1 Ml Vial IV 20,000 unit BIANCA PRN Administration HEMODIALYSIS Fentanyl 50 mcg 05/03/22 10:29 05/05/22 12:23 Fentanyl 100 Mcg/2 Ml Inj IV 25 mcg Q10MIN PRN Administration ANALGESIA Sodium Chloride 100 mls @ 999 mls/hr 04/22/22 09:12 Nacl 0.9% IV BIANCA PRN Hypotension Fentanyl Citrate 2,000 mcg in 100 mls @ 2.722 mls/hr 05/03/22 11:00 Fentanyl Drip Premix IV TITR CONNOR Protocol 1 MCG/KG/HR NORepinephrine/NS 8 MG-250 ML 8 mg in 250 mls @ 3.75 mls/hr 05/03/22 13:15 05/06/22 06:25 Norepinephrine/Ns 8 Mg-250 Ml (Double Conc) IV 4 mcg/min TITRATE CONNOR 7.5 mls/hr Titration Protocol 2 MCG/MIN Vasopressin 20 unit/ Sodium 101 mls @ 9.09 mls/hr 05/04/22 00:30 05/06/22 07:32 Chloride IV 0.03 units/min TITR CONNOR 9.09 mls/hr Administration 0.03 UNITS/MIN Cefepime HCl 1 gm in 100 mls @ 200 mls/hr 05/04/22 18:00 05/05/22 17:37 Cefepime/Ns 1 Gm/100 Ml IV 200 mls/hr QPM CONNOR Administration Protocol Lansoprazole 30 mg 04/23/22 10:00 05/05/22 09:44 Lansoprazole 30 Mg Solutab FEEDTUBE 30 mg QDAY CONNOR Administration Lorazepam 0.5 mg 04/25/22 09:59 Lorazepam 0.5 Mg Tab FEEDTUBE QDAY PRN Anxiety Memantine 5 mg 04/25/22 10:00 05/05/22 23:19 Memantine 5 Mg Tab FEEDTUBE 5 mg BID CONNOR Administration Metoclopramide HCl 5 mg 04/19/22 09:55 Metoclopramide 10 Mg/2 Ml Inj IV Q6H PRN Nausea And Vomiting Midodrine 20 mg 04/26/22 14:00 05/05/22 23:20 Midodrine 10 Mg Tab FEEDTUBE 20 mg TID CONNOR Administration Naloxone HCl 0.1 mg 04/19/22 09:55 Naloxone 0.4 Mg/1 Ml Inj IV Q2MIN PRN Res Rate </= 8 or 02 SAT < 92% Polyethylene Glycol 17 gm 05/03/22 10:00 05/05/22 09:55 Polyethylene Glycol 3350 17 Gm Powder FEEDTUBE 17 gm QDAY CONNOR Administration Risperidone 0.5 mg 04/25/22 11:00 05/05/22 23:18 Risperidone 1 Mg Tab FEEDTUBE 0.5 mg BID CONNOR Administration Scopolamine 1 each 05/02/22 10:00 05/05/22 09:45 Scopolamine Transdermal Patch 72 Hr TD 1 each Q3D CONNOR Administration Senna 17.2 mg 04/23/22 10:00 05/05/22 23:19 Sennosides 8.6 Mg Tab FEEDTUBE 17.2 mg BID CONNOR Administration Sodium Chloride 10 ml 04/19/22 12:00 05/05/22 09:45 Sodium Chloride 0.9% 10 Ml Flush Syringe IV 10 ml BID CONNOR Administration Sodium Chloride 10 ml 04/19/22 11:19 Sodium Chloride 0.9% 10 Ml Flush Syringe IV PRN PRN LINE FLUSH Valproic Acid 750 mg 04/22/22 22:00 05/05/22 23:18 Valproic Acid 250 Mg/5 Ml Oral Liqd FEEDTUBE 750 mg BID CONNOR Administration Nutrition/Malnutrition Assess - Dietary Evaluation Nutrition/Malnutrition Findings: Nutrition Notes Start: 04/19/22 17:39 Freq: Status: Active Protocol: Document 05/05/22 14:44 NHALL (Rec: 05/05/22 14:55 NHALL [id number]) Nutrition Notes Initial or Follow up Reassessment Current Diagnosis CKD (stage V CKD),Sepsis, Respiratory Failure Other Pertinent Diagnosis Neurogenic dysphagia, metabolic encephalopathy, vascular dementia Current Diet No diet order in chart Labs/Tests Na 130 K 3.3 BUN 24 Cr 2.3 BG 163 Phos 1.5 Pertinent Medications Colace, Senokot, Miralax, Levophed gtt, Vasopressin gtt Height 5 ft 2 in Weight 54.43 kg [place] Body Weight (kg) 50.00 BMI 21.9 Weight Status Appropriate Subjective/Other Information PEG placed yesterday. Pt remains on vent and HD support . Observed Nepro infusing at 30ml/hr. No BM documented today. Bronchoscopy performed today. Percent of energy/protein needs met: 104% energy 90% pro Burn Absent Trauma Absent #1 Nutrition Diagnosis Inadequate oral intake, Swallowing difficulty Diagnosis Progress(for reassessment Continues documentation) Is patient on ventilator? Yes Is Patient Ambulatory and/or Out of Bed No REE-([facility]-confined to bed) 1244.844 Calculation Used for Recommendations [facility] Additional Notes Pro needs >1.2g/kg: >65g/day Fluid needs 1-1.5L/day Nutrition Intervention Nutrition Support: Continue Nepro at 30ml/hr with 130ml water flush q4h. Kcal 1,296 Protein (gm) 58 Carbohydrates (gm) 116 Fat (gm) 69 Fluid (mL) 523 Fiber (gm) 9 Goal #1 TF tolerance Goal #2 TF to meet at least 75% energy and pro needs Follow-Up By: 05/12/22 Additional Comments F/U: stable TF, vent status, wt, BM
[2022-05-05] MEDS ORDERED: SODIUM CHLORIDE 0.9% IRR 1,000 ML BOTTLE IR ONE (11:56)
[2022-05-05] MEDS ORDERED: LIDOCAINE (1%) 10 MG/1 ML VIAL 20 ML MDV INFILTRATI NR (12:00)
--- NOTE | 2022-05-05 12:27 | Procedure Note ---
Date of procedure: 05/05/22 Pre-op diagnosis: Right lung partial atelectasis Post-op diagnosis: same Procedure: FIBEROPTIC BRONCHOSCOPY WITH AIRWAY LAVAGE (Full dictation # [id number]) Please see dictated notes for full details
[2022-05-05] MEDS ORDERED: ACETYLCYSTEINE 10% 100 MG/1 ML *FOR INHALATION USE INHALATION SCH (14:00)
[2022-05-05] MEDS: ACETYLCYSTEINE 20% 200 MG/1 ML *FOR INHALATION USE INHALATION SCH ×2 (14:09→21:02)
--- NOTE | 2022-05-05 16:32 | Operative Report ---
DATE OF SURGERY: 05/05/2022 PULMONARY PROCEDURE NOTE PROCEDURE: Fiberoptic bronchoscopy with lavage of the airways. INDICATIONS: Partial right lung atelectasis. CONSENT: Informed and witnessed obtained from her son, Raymundo Randolph, who was called at #[phone]. COMPLICATIONS: No immediate procedural complications. DESCRIPTION OF PROCEDURE: After informed and witnessed consent, fiberoptic bronchoscope was passed through the Bodai valve and directed into the distal trachea. From the tip of the endotracheal tube, I could see some thick mucoid secretions around the orifice to the right main-stem bronchus. Topical lidocaine 3 mL of 1% was applied at the tena. Fiberoptic bronchoscope was then directed to the secretions around the area of the right mainstem and suctioned out of the airway. There were minimal secretions also in the opening to the right upper lobe airway as well as the right middle lobe and basilar segments; however, there was no complete occlusion of the airway. After I cleared out the secretions, the fiberoptic bronchoscope was directed to the left lung. A quick survey in the superior areas did reveal edematous looking mucosa and really in the whole airway. There was minimal bleeding noticed during the inspection of the left bronchial tree, but there were no secretions and so I did not advance into the basilar segments for fear of causing further bleeding. Fiberoptic bronchoscope was then pulled up to the opening of the left main-stem and observed for about a minute to ensure that there was no gross bleeding going on. So, a quick secondary survey was then done of the right main-stem bronchus. The fiberoptic bronchoscope was then pulled out of the airway through the Bodai valve. The patient tolerated the procedure well. No immediate procedural complications. RECOMMENDATIONS: 1. Continue chest physiotherapy. 2. Mucomyst will be ordered 3 times daily for about 5 days to help clear the secretions. 3. We will continue other aspiration precautions. TID: [id number] RECEIPT: [id number] CHELSI/AIDE
[2022-05-05] MEDS: CEFEPIME/NS 1 GM/100 ML 1 GM/100 ML BAG IV SCH (17:37)
--- NOTE | 2022-05-05 17:52 | Gastroenterology Progress Note ---
Assessment and Plan - Patient Problems (1) Neurogenic dysphagia Current Visit: Yes Status: Acute Plan to address problem: - EGD/PEG 05/04 without obvious complication, and loosened today. - We will sign off; please call if needed. Subjective Date of service: 05/05/22 Principal diagnosis: Neurogenic dysphagia Interval history: The PEG tube has been functioning well overnight, and no significant bleeding has been noted. She has had no N/V nor blood in her stools. Objective - Constitutional Vitals: Temp Pulse Resp BP Pulse Ox 98.9 F 76 14 104/59 100 05/05/22 12:00 05/05/22 16:33 05/05/22 15:45 05/05/22 16:33 05/05/22 16:33 General appearance: no acute distress - Respiratory Respiratory effort: normal Respiratory: bilateral: CTA (Vent) - Cardiovascular Rhythm: regular Heart Sounds: Present: S1 & S2 - Gastrointestinal General gastrointestinal: Present: soft, non-tender, non-distended, other (PEG tube bumper loosened to 4.5cm from 3.5cm; no bleeding noted) - Labs CBC & Chem 7: 05/05/22 04:20 05/05/22 04:20 Labs: Laboratory Results - last 24 hr 05/04/22 05/05/22 05/05/22 18:10 00:05 04:20 WBC 12.8 H RBC 2.81 L Hgb 8.0 L Hct 24.8 L MCV 88 MCH 29 MCHC 33 RDW 16.8 H Plt Count 156 Add Manual Diff Complete Total Counted 100 Seg Neuts % (Manual) 86.0 H Band Neutrophils % 3.0 Lymphocytes % (Manual) 4.0 L Reactive Lymphs % (Man) 0 Monocytes % (Manual) 6.0 Eosinophils % (Manual) 1.0 Basophils % (Manual) 0 Metamyelocytes % 0 Myelocytes % 0 Promyelocytes % 0 Blast Cells % 0 Nucleated RBC % 1.0 H Seg Neutrophils # Man 11.0 H Band Neutrophils # 0.4 Lymphocytes # (Manual) 0.5 L Abs React Lymphs (Man) 0.0 Monocytes # (Manual) 0.8 Eosinophils # (Manual) 0.1 Basophils # (Manual) 0.0 Metamyelocytes # 0.0 Myelocytes # 0.0 Promyelocytes # 0.0 Blast Cells # 0.0 WBC Morphology Not Reportable Hypersegmented Neuts Not Reportable Hyposegmented Neuts Not Reportable Hypogranular Neuts Not Reportable Smudge Cells Not Reportable Toxic Granulation Not Reportable Toxic Vacuolation Not Reportable Dohle Bodies Not Reportable Pelger-Huet Anomaly Not Reportable Ubaldo Rods Not Reportable Platelet Estimate Consistent w auto Clumped Platelets Not Reportable Plt Clumps, EDTA Not Reportable Large Platelets Not Reportable Giant Platelets Not Reportable Platelet Satelliting Not Reportable Plt Morphology Comment Not Reportable RBC Morphology Not Reportable Dimorphic RBCs Not Reportable Polychromasia Not Reportable Hypochromasia 2+ Poikilocytosis Not Reportable Anisocytosis 1+ Microcytosis Not Reportable Macrocytosis Not Reportable Spherocytes Not Reportable Pappenheimer Bodies Not Reportable Sickle Cells Not Reportable Target Cells Not Reportable Tear Drop Cells Not Reportable Ovalocytes Not Reportable Helmet Cells Not Reportable [place]angel-[place] Bodies Not Reportable [place] Rings Not Reportable [place] Cells Not Reportable Bite Cells Not Reportable Crenated Cell Not Reportable Elliptocytes Not Reportable Acanthocytes (Spur) Not Reportable Rouleaux Not Reportable Hemoglobin C Crystals Not Reportable Schistocytes Not Reportable Malaria parasites Not Reportable [place] Bodies Not Reportable Hem Pathologist Commnt No ABG pH ABG pCO2 ABG pO2 ABG HCO3 ABG O2 Saturation ABG O2 Content ABG Base Excess ABG Hemoglobin ABG Carboxyhemoglobin ABG Methemoglobin Oxyhemoglobin FiO2 Sodium Potassium Chloride Carbon Dioxide Anion Gap BUN Creatinine Estimated GFR BUN/Creatinine Ratio Glucose POC Glucose 143 H 163 H Calcium Phosphorus Magnesium Procalcitonin 05/05/22 05/05/22 05/05/22 04:20 04:20 05:18 WBC RBC Hgb Hct MCV MCH MCHC RDW Plt Count Add Manual Diff Total Counted Seg Neuts % (Manual) Band Neutrophils % Lymphocytes % (Manual) Reactive Lymphs % (Man) Monocytes % (Manual) Eosinophils % (Manual) Basophils % (Manual) Metamyelocytes % Myelocytes % Promyelocytes % Blast Cells % Nucleated RBC % Seg Neutrophils # Man Band Neutrophils # Lymphocytes # (Manual) Abs React Lymphs (Man) Monocytes # (Manual) Eosinophils # (Manual) Basophils # (Manual) Metamyelocytes # Myelocytes # Promyelocytes # Blast Cells # WBC Morphology Hypersegmented Neuts Hyposegmented Neuts Hypogranular Neuts Smudge Cells Toxic Granulation Toxic Vacuolation Dohle Bodies Pelger-Huet Anomaly Ubaldo Rods Platelet Estimate Clumped Platelets Plt Clumps, EDTA Large Platelets Giant Platelets Platelet Satelliting Plt Morphology Comment RBC Morphology Dimorphic RBCs Polychromasia Hypochromasia Poikilocytosis Anisocytosis Microcytosis Macrocytosis Spherocytes Pappenheimer Bodies Sickle Cells Target Cells Tear Drop Cells Ovalocytes Helmet Cells [place]angel-[place] Bodies [place] Rings Stacey Cells Bite Cells Crenated Cell Elliptocytes Acanthocytes (Spur) Rouleaux Hemoglobin C Crystals Schistocytes Malaria parasites [place] Bodies Hem Pathologist Commnt ABG pH ABG pCO2 ABG pO2 ABG HCO3 ABG O2 Saturation ABG O2 Content ABG Base Excess ABG Hemoglobin ABG Carboxyhemoglobin ABG Methemoglobin Oxyhemoglobin FiO2 Sodium 130 L Potassium 3.3 L Chloride 94.0 L Carbon Dioxide 26 Anion Gap 13 BUN 24 H Creatinine 2.3 H Estimated GFR 26 BUN/Creatinine Ratio 10 Glucose 163 H POC Glucose 163 H Calcium 8.9 Phosphorus 1.50 L Magnesium 1.90 Procalcitonin 42.42 05/05/22 05/05/22 05/05/22 10:06 12:11 16:29 WBC RBC Hgb Hct MCV MCH MCHC RDW Plt Count Add Manual Diff Total Counted Seg Neuts % (Manual) Band Neutrophils % Lymphocytes % (Manual) Reactive Lymphs % (Man) Monocytes % (Manual) Eosinophils % (Manual) Basophils % (Manual) Metamyelocytes % Myelocytes % Promyelocytes % Blast Cells % Nucleated RBC % Seg Neutrophils # Man Band Neutrophils # Lymphocytes # (Manual) Abs React Lymphs (Man) Monocytes # (Manual) Eosinophils # (Manual) Basophils # (Manual) Metamyelocytes # Myelocytes # Promyelocytes # Blast Cells # WBC Morphology Hypersegmented Neuts Hyposegmented Neuts Hypogranular Neuts Smudge Cells Toxic Granulation Toxic Vacuolation Dohle Bodies Pelger-Huet Anomaly Ubaldo Rods Platelet Estimate Clumped Platelets Plt Clumps, EDTA Large Platelets Giant Platelets Platelet Satelliting Plt Morphology Comment RBC Morphology Dimorphic RBCs Polychromasia Hypochromasia Poikilocytosis Anisocytosis Microcytosis Macrocytosis Spherocytes Pappenheimer Bodies Sickle Cells Target Cells Tear Drop Cells Ovalocytes Helmet Cells [place]angel-[place] Bodies [place] Rings Stacey Cells Bite Cells Crenated Cell Elliptocytes Acanthocytes (Spur) Rouleaux Hemoglobin C Crystals Schistocytes Malaria parasites [place] Bodies Hem Pathologist Commnt ABG pH 7.395 ABG pCO2 45.8 ABG pO2 91.7 H ABG HCO3 27.4 H ABG O2 Saturation 97.2 ABG O2 Content 15.4 ABG Base Excess 2.1 ABG Hemoglobin 11.4 L ABG Carboxyhemoglobin 1.6 ABG Methemoglobin 0.5 Oxyhemoglobin 95.1 FiO2 35 Sodium Potassium Chloride Carbon Dioxide Anion Gap BUN Creatinine Estimated GFR BUN/Creatinine Ratio Glucose POC Glucose 186 H 170 H Calcium Phosphorus Magnesium Procalcitonin
--- NOTE | 2022-05-05 19:00 | Progress Note ---
Assessment and Plan Impression: * End stage renal disease * Acute hypoxic respiratory failure * AMS * SVT s/p cardioversion * SIRS * NSTEMI * Shock * Anemia secondary to ESRD * Secondary hyperparathyroidism * IJ thrombus Plan: * Continue hemodialysis // provided patient is hemodynamically stable. * Vasopressors prn to maintaina MAP > 65 * Dose medications for renal function * cardiology/pulmonary notes reviewed, appreciated * appreciate vascular regarding AVG * continue midodrine given soft BP * keep MAP>65, vasopressors prn * Avoid potential nephrotoxins * Epogen TIW prn * Renal/HD diet * Continue binders prn * Thank you for involving us in the care of this patient. We will follow along and make recommendation from renal standpoint. Total critical care time 32 minutes. Patient is critically ill and prognosis is guarded. Subjective Date of service: 05/05/22 Principal diagnosis: Neurogenic dysphagia Interval history: Seen in ICU. Remains intubated. On vasopressors. Objective - Exam Narrative Exam: General: Sedated. Intubated. Head: NC/AT Eyes: normal appearance Neck: Normal appearance Chest: Intubated CV: Regular rate and rhythm, right arm dialysis access Abdomen: Soft, normal bowel sounds, nontender, nondistended Neuro: Sedated - Vital Signs Vital signs: Vital Signs - 12hr 05/05/22 05/05/22 05/05/22 07:00 07:15 07:30 Temperature Pulse Rate 84 76 74 Pulse Rate [ Anterior Bilateral Throughout] Respiratory 14 14 14 Rate Respiratory Rate [Anterior Bilateral Throughout] Blood Pressure 111/47 103/46 118/56 O2 Sat by Pulse 100 100 100 Oximetry 05/05/22 05/05/22 05/05/22 07:45 07:54 07:57 Temperature Pulse Rate 73 75 Pulse Rate [ 77 Anterior Bilateral Throughout] Respiratory 15 Rate Respiratory 15 Rate [Anterior Bilateral Throughout] Blood Pressure 106/40 106/40 O2 Sat by Pulse 100 100 Oximetry 05/05/22 05/05/22 05/05/22 08:00 08:15 08:30 Temperature 99 F Pulse Rate 76 92 H 80 Pulse Rate [ Anterior Bilateral Throughout] Respiratory 14 15 13 Rate Respiratory Rate [Anterior Bilateral Throughout] Blood Pressure 102/45 102/45 105/45 O2 Sat by Pulse 99 97 100 Oximetry 05/05/22 05/05/22 05/05/22 08:45 09:00 09:15 Temperature Pulse Rate 80 78 94 H Pulse Rate [ Anterior Bilateral Throughout] Respiratory 14 15 16 Rate Respiratory Rate [Anterior Bilateral Throughout] Blood Pressure 102/50 108/47 123/58 O2 Sat by Pulse 99 100 96 Oximetry 05/05/22 05/05/22 05/05/22 09:30 09:45 10:01 Temperature Pulse Rate 97 H 91 H 94 H Pulse Rate [ Anterior Bilateral Throughout] Respiratory 22 15 14 Rate Respiratory Rate [Anterior Bilateral Throughout] Blood Pressure 128/62 112/55 104/42 O2 Sat by Pulse 96 97 99 Oximetry 05/05/22 05/05/22 05/05/22 10:15 10:31 10:45 Temperature Pulse Rate 84 104 H 97 H Pulse Rate [ Anterior Bilateral Throughout] Respiratory 14 13 16 Rate Respiratory Rate [Anterior Bilateral Throughout] Blood Pressure 107/48 130/64 122/54 O2 Sat by Pulse 99 94 95 Oximetry 05/05/22 05/05/22 05/05/22 11:00 11:15 11:25 Temperature Pulse Rate 89 75 105 H Pulse Rate [ Anterior Bilateral Throughout] Respiratory 15 14 Rate Respiratory Rate [Anterior Bilateral Throughout] Blood Pressure 109/63 100/40 100/40 O2 Sat by Pulse 97 99 100 Oximetry 05/05/22 05/05/22 05/05/22 11:30 11:45 12:00 Temperature 98.9 F Pulse Rate 98 H 81 77 Pulse Rate [ Anterior Bilateral Throughout] Respiratory 16 14 Rate Respiratory Rate [Anterior Bilateral Throughout] Blood Pressure 117/65 89/44 O2 Sat by Pulse 98 99 100 Oximetry 05/05/22 05/05/22 05/05/22 12:01 12:15 12:30 Temperature Pulse Rate 79 73 93 H Pulse Rate [ Anterior Bilateral Throughout] Respiratory 14 14 15 Rate Respiratory Rate [Anterior Bilateral Throughout] Blood Pressure 103/49 101/57 117/60 O2 Sat by Pulse 100 99 96 Oximetry 05/05/22 05/05/22 05/05/22 12:45 13:00 13:15 Temperature Pulse Rate 107 H 85 78 Pulse Rate [ Anterior Bilateral Throughout] Respiratory 16 14 14 Rate Respiratory Rate [Anterior Bilateral Throughout] Blood Pressure 117/78 103/44 98/43 O2 Sat by Pulse 96 99 100 Oximetry 05/05/22 05/05/22 05/05/22 13:30 13:45 14:01 Temperature Pulse Rate 77 72 73 Pulse Rate [ Anterior Bilateral Throughout] Respiratory 14 14 14 Rate Respiratory Rate [Anterior Bilateral Throughout] Blood Pressure 93/42 95/39 94/42 O2 Sat by Pulse 100 100 100 Oximetry 05/05/22 05/05/22 05/05/22 14:15 14:16 14:30 Temperature Pulse Rate 95 H 80 Pulse Rate [ 99 H Anterior Bilateral Throughout] Respiratory 13 14 Rate Respiratory 16 Rate [Anterior Bilateral Throughout] Blood Pressure 106/55 108/52 O2 Sat by Pulse 100 100 Oximetry 05/05/22 05/05/22 05/05/22 14:45 15:00 15:15 Temperature Pulse Rate 86 77 83 Pulse Rate [ Anterior Bilateral Throughout] Respiratory 17 14 14 Rate Respiratory Rate [Anterior Bilateral Throughout] Blood Pressure 97/59 112/52 117/60 O2 Sat by Pulse 100 100 100 Oximetry 05/05/22 05/05/22 05/05/22 15:30 15:45 16:00 Temperature 98.9 F Pulse Rate 72 69 69 Pulse Rate [ Anterior Bilateral Throughout] Respiratory 14 14 14 Rate Respiratory Rate [Anterior Bilateral Throughout] Blood Pressure 101/46 107/49 120/45 O2 Sat by Pulse 100 100 100 Oximetry 05/05/22 05/05/22 05/05/22 16:16 16:30 16:33 Temperature Pulse Rate 69 82 76 Pulse Rate [ Anterior Bilateral Throughout] Respiratory 14 Rate Respiratory Rate [Anterior Bilateral Throughout] Blood Pressure 110/43 104/59 104/59 O2 Sat by Pulse 100 100 100 Oximetry 05/05/22 05/05/22 05/05/22 16:46 17:00 17:15 Temperature Pulse Rate 76 74 74 Pulse Rate [ Anterior Bilateral Throughout] Respiratory 16 14 14 Rate Respiratory Rate [Anterior Bilateral Throughout] Blood Pressure 106/47 116/44 123/46 O2 Sat by Pulse 100 100 100 Oximetry 05/05/22 05/05/22 05/05/22 17:30 17:45 18:00 Temperature Pulse Rate 74 71 71 Pulse Rate [ Anterior Bilateral Throughout] Respiratory 17 14 14 Rate Respiratory Rate [Anterior Bilateral Throughout] Blood Pressure 111/37 123/51 117/37 O2 Sat by Pulse 100 100 100 Oximetry - Lab 05/05/22 04:20 05/05/22 04:20 Most recent lab results ABG pH 7.395 pH Units (7.350-7.450) 05/05/22 10:06 ABG pCO2 45.8 mm Hg 05/05/22 10:06 ABG pO2 91.7 mm Hg (80.0-90.0) H 05/05/22 10:06 ABG HCO3 27.4 mmol/L (20.0-26.0) H 05/05/22 10:06 ABG O2 Saturation 97.2 % (95.0-99.0) 05/05/22 10:06 Calcium 8.9 mg/dL (8.4-10.2) 05/05/22 04:20 Phosphorus 1.50 mg/dL (2.5-4.5) L 05/05/22 04:20 Magnesium 1.90 mg/dL (1.7-2.3) 05/05/22 04:20 Medications & Allergies - Medications Allergies/Adverse Reactions: Allergies buspirone [From BuSpar] Allergy (Verified 04/18/22 12:22) Unknown Penicillins Allergy (Verified 04/18/22 12:22) Rash corn Adverse Reaction (Verified 04/18/22 12:22) Unknown Home Medications: Home Medications Medication Instructions Recorded Confirmed Last Taken Type Sevelamer Carbonate [Renvela] 0.8 gram PO TIDWM 09/02/20 02/02/22 05/31/21 History HYDROcodone/APAP 5-325 [Mason 1 each PO Q4HR PRN #30 tablet 05/18/21 02/02/22 Unknown Rx 5-325 mg TAB] ALBUTEROL NEB's [Proventil 0.083% 2.5 mg IH Q3HRT PRN #1 nebu 03/03/22 Unknown Rx NEBS] Clopidogrel [Plavix] 75 mg PO QDAY #90 tablet 03/03/22 Unknown Rx Divalproex [Sarina Serrano] 750 mg PO BID #60 tablet 03/03/22 Unknown Rx LORazepam [Ativan] 1 mg PO DAILY #30 tab 03/03/22 Unknown Rx Memantine Xr [Namenda Xr] 5 mg PO DAILY #30 cap 03/03/22 Unknown Rx Midodrine [Proamatine] 10 mg PO TID #90 tab 03/03/22 Unknown Rx Pantoprazole [Protonix TAB] 40 mg PO DAILY #30 tab 03/03/22 Unknown Rx QUEtiapine [SEROquel] 400 mg PO BID #60 tab 03/03/22 Unknown Rx risperiDONE [RisperDAL] 0.5 mg PO BID #60 tab 03/03/22 Unknown Rx Active Medications: Generic Name Dose Route Start Last Admin Trade Name Freq PRN Reason Stop Dose Admin Acetaminophen 650 mg 04/22/22 20:12 05/03/22 23:41 Acetaminophen 325 Mg/10.15 Ml Oral Liqd Unit Dose PO 650 mg Q6H PRN Administration Pain MILD(1-3)/Fever >100.5/DRAKE Acetylcysteine 200 mg 05/05/22 14:00 05/05/22 14:09 Acetylcysteine 20% 200 Mg/1 Ml *For Inhalation Use* INHALATION 05/10/22 13:59 200 mg TID CONNOR Administration Albumin Human 25 gm 04/21/22 13:00 04/22/22 16:31 Albumin Human 25% (25 Gm/100 Ml) Inj IV 25 gm BIANCA PRN Administration Hypotension Albuterol 2.5 mg 04/21/22 08:30 04/24/22 16:51 Albuterol 2.5 Mg/3 Ml Nebu IH 2.5 mg Q3HRT PRN Administration Shortness Of Breath Albuterol/Ipratropium 1 ampul 04/21/22 14:00 05/05/22 14:09 Ipratropium/Albuterol Sulfate 3 Ml Ampul.Neb IH 1 ampul TIDRT CONNOR Administration Bisacodyl 10 mg 05/04/22 10:00 05/05/22 09:44 Bisacodyl 10 Mg Rect Supp MS 05/06/22 09:59 Not Given QDAY CONNOR Docusate Sodium 100 mg 05/01/22 22:00 05/05/22 09:56 Docusate Sodium 100 Mg/10 Ml Oral Liqd FEEDTUBE 100 mg BID CONNOR Administration Epoetin Lb-epbx 20,000 unit 04/23/22 12:00 05/04/22 13:19 Epoetin Lb-Epbx 20,000 Unit/1 Ml Vial IV 20,000 unit BIANCA PRN Administration HEMODIALYSIS Fentanyl 50 mcg 05/03/22 10:29 05/05/22 12:23 Fentanyl 100 Mcg/2 Ml Inj IV 25 mcg Q10MIN PRN Administration ANALGESIA Sodium Chloride 100 mls @ 999 mls/hr 04/22/22 09:12 Nacl 0.9% IV BIANCA PRN Hypotension Fentanyl Citrate 2,000 mcg in 100 mls @ 2.722 mls/hr 05/03/22 11:00 Fentanyl Drip Premix IV TITR CONNOR Protocol 1 MCG/KG/HR NORepinephrine/NS 8 MG-250 ML 8 mg in 250 mls @ 3.75 mls/hr 05/03/22 13:15 05/05/22 18:45 Norepinephrine/Ns 8 Mg-250 Ml (Double Conc) IV 8 mcg/min TITRATE CONNOR 15 mls/hr Titration Protocol 2 MCG/MIN Vasopressin 20 unit/ Sodium 101 mls @ 9.09 mls/hr 05/04/22 00:30 05/05/22 09:46 Chloride IV 0.03 units/min TITR CONNOR 9.09 mls/hr Administration 0.03 UNITS/MIN Cefepime HCl 1 gm in 100 mls @ 200 mls/hr 05/04/22 18:00 05/05/22 17:37 Cefepime/Ns 1 Gm/100 Ml IV 200 mls/hr QPM CONNOR Administration Protocol Lansoprazole 30 mg 04/23/22 10:00 05/05/22 09:44 Lansoprazole 30 Mg Solutab FEEDTUBE 30 mg QDAY CONNOR Administration Lidocaine 10 ml 05/05/22 12:00 05/05/22 12:46 Lidocaine (1%) 10 Mg/1 Ml Vial 20 Ml Mdv INFILTRATI 05/05/22 20:00 10 ml PREOP NR Administration Lorazepam 0.5 mg 04/25/22 09:59 Lorazepam 0.5 Mg Tab FEEDTUBE QDAY PRN Anxiety Memantine 5 mg 04/25/22 10:00 05/05/22 09:57 Memantine 5 Mg Tab FEEDTUBE 5 mg BID CONNOR Administration Metoclopramide HCl 5 mg 04/19/22 09:55 Metoclopramide 10 Mg/2 Ml Inj IV Q6H PRN Nausea And Vomiting Midodrine 20 mg 04/26/22 14:00 05/05/22 15:00 Midodrine 10 Mg Tab FEEDTUBE 20 mg TID CONNOR Administration Naloxone HCl 0.1 mg 04/19/22 09:55 Naloxone 0.4 Mg/1 Ml Inj IV Q2MIN PRN Res Rate </= 8 or 02 SAT < 92% Polyethylene Glycol 17 gm 05/03/22 10:00 05/05/22 09:55 Polyethylene Glycol 3350 17 Gm Powder FEEDTUBE 17 gm QDAY CONNOR Administration Risperidone 0.5 mg 04/25/22 11:00 05/05/22 09:44 Risperidone 1 Mg Tab FEEDTUBE 0.5 mg BID CONNOR Administration Scopolamine 1 each 05/02/22 10:00 05/05/22 09:45 Scopolamine Transdermal Patch 72 Hr TD 1 each Q3D CONNOR Administration Senna 17.2 mg 04/23/22 10:00 05/05/22 09:55 Sennosides 8.6 Mg Tab FEEDTUBE 17.2 mg BID CONNOR Administration Sodium Chloride 10 ml 04/19/22 12:00 05/05/22 09:45 Sodium Chloride 0.9% 10 Ml Flush Syringe IV 10 ml BID CONNOR Administration Sodium Chloride 10 ml 04/19/22 11:19 Sodium Chloride 0.9% 10 Ml Flush Syringe IV PRN PRN LINE FLUSH Valproic Acid 750 mg 04/22/22 22:00 05/05/22 09:43 Valproic Acid 250 Mg/5 Ml Oral Liqd FEEDTUBE 750 mg BID CONNOR Administration
[2022-05-06] MEDS: NORepinephrine/NS 8 MG-250 ML 8 MG/250 ML INFUS..BTL IV SCH (02:26)
[2022-05-06 05:08] LABS: Hematocrit 25.1 % (30.3-42.9); Hemoglobin 7.9 gm/dl (10.1-14.3); Mean Corpuscular HGB Conc 32 % (30-34); Mean Corpuscular Volume 90 fl (79-97); Platelet Count 119 K/mm3 (140-440); Red Blood Count 2.78 M/mm3 (3.65-5.03); Red Cell Distribution Width 16.7 % (13.2-15.2)
[2022-05-06 05:17] LABS: ABG Base Excess 1.2 mmol/L (-2.0-3.0); ABG HCO3 25.9 mmol/L (20.0-26.0); ABG Methemoglobin 0.5 % (0.0-1.5); ABG Oxygen Saturation 98.1 % (95.0-99.0); ABG PCO2 41.1 mm Hg; ABG PH 7.417 pH Units (7.350-7.450); ABG PO2 112.7 mm Hg (80.0-90.0)
[2022-05-06 05:30] LABS: Calcium 9.1 mg/dL (8.4-10.2)
[2022-05-06] MEDS: VASOPRESSIN 20 UNIT in SODIUM CHLORIDE 0.9% 100 ML IV SCH (07:32)
[2022-05-06] MEDS: MIDODRINE 10 MG TAB FEEDTUBE SCH ×3 (08:24→22:49)
[2022-05-06] MEDS: ACETYLCYSTEINE 20% 200 MG/1 ML *FOR INHALATION USE INHALATION SCH ×3 (08:42→21:21)
[2022-05-06] MEDS: IPRATROPIUM/ALBUTEROL SULFATE 3 ML AMPUL.NEB IH SCH ×3 (08:42→21:21)
[2022-05-06] MEDS: SENNOSIDES 8.6 MG TAB FEEDTUBE SCH ×2 (09:32→22:49)
[2022-05-06] MEDS: LANSOPRAZOLE 30 MG SOLUTAB FEEDTUBE SCH (09:32)
[2022-05-06] MEDS: POLYETHYLENE GLYCOL 3350 17 GM POWDER FEEDTUBE SCH (09:32)
[2022-05-06] MEDS: VALPROIC ACID 250 MG/5 ML ORAL LIQD FEEDTUBE SCH ×2 (09:32→22:49)
[2022-05-06] MEDS: MEMANTINE 5 MG TAB FEEDTUBE SCH ×2 (09:33→22:49)
[2022-05-06] MEDS: DOCUSATE SODIUM 100 MG/10 ML ORAL LIQD FEEDTUBE SCH ×2 (09:33→22:48)
[2022-05-06] MEDS: risperiDONE 1 MG TAB FEEDTUBE SCH ×2 (09:34→22:48)
--- NOTE | 2022-05-06 09:36 | XRay Report ---
CHEST 1 VIEW 05/06/2022 8:19 AM INDICATION / CLINICAL INFORMATION: follow up respiratory failure. COMPARISON: 05/05/2022 FINDINGS: SUPPORT DEVICES: Unchanged. HEART / MEDIASTINUM: Stable. LUNGS / PLEURA: Improving opacities in the right lung. Similar loculated right pleural effusion. Trac e left pleural effusion with similar left basilar opacities. No pneumothorax. ADDITIONAL FINDINGS: No significant additional findings. IMPRESSION: 1. Improving right lung opacities with similar loculated right pleural effusion. 2. Unchanged streaky opacities in the left lung base with trace effusion. Signer Name: Buddy Rosado MD Signed: 05/06/2022 9:31 AM Workstation Name: [id number]
[2022-05-06] MEDS ORDERED: K-PHOS NEUTRAL 250 MG TAB FEEDTUBE SCH (10:00)
[2022-05-06] MEDS ORDERED: POTASSIUM CHLORIDE 20 MEQ 20 MEQ/100 ML BAG IV ONE (10:00)
[2022-05-06] MEDS ORDERED: VANCOMYCIN PHARMACY TO DOSE IV SCH (11:00)
--- NOTE | 2022-05-06 11:00 | Progress Note ---
Assessment and Plan Acute hypoxemic respiratory failure on MVS s/p Bronchoscopy Acute on Chronic Hypotension- possibly secondary to sepsis Acute on Chronic Metabolic Encephalopathy Possible Shock Syndrome SVT Elevated troponin Bipolar disorder Schizophrenia, Hyperkalemia ESRD on hemodialysis Anemia of chronic disease, Type 2 NSTEMI GERD Subclinical Hypothyroidism Moderate protein caloric malnutrition -Wean vasopressor support to keep MAP>65 -Titrate supplemental oxygen to keep SpO2 90-925, decrease PEEP to 8 -CXR, ABG as clinically indicated - continue Daily assessment for readiness to wean. - sedation prn for target RASS 0 to -1 - VAP bundle addressed, aspiration precautions, HOB >40 - continue lung protective strategies - continue bronchodilators with pulmonary hygiene per RT -Chest PT, bronchodilators and mucolytics. -On Cefepime and Vancomycin, follow bronchial washings respiratory culture. Adjust antibiotics/de-escalate based on clinical response and culture data ID following - wean per pulmonary driven protocols otherwise - enteral nutrition at goal rate as tolerated - continue Midodrine for BP support - femoral CVL replaced as no other viable site for access - Albumin 25 gms of 25% solution prn with dialysis - continue HD/UF per nephrology prescription for toxin and volume clearance - continue accuchecks with glycemic control per SSI (While critically ill target blood glucose of 140-180 mg/dL; avoid hypoglycemia) - avoid nephrotoxins, renally dose all medications - continue to avoid benzodiazepines, reduce the possibility of delirium - prn analgesia per CPOT score - Maintenance of sleep-wake cycle, avoid delirium - Stress ulcer and VTE prophylaxis (Lansoprazole) - mobility protocol, off loading and frequent turning per facility protocol to prevent pressure ulcers - Monitor hemodynamics closely - continue other care per attending / other consultants CONDITION: CRITICAL PROGNOSIS: GUARDED CODE STATUS: FULL CODE The high probability of a clinically significant, sudden or life-threatening deterioration of the [respiratory, cardiovascular, renal & neurologic] system(s) required my full and direct attention, intervention and personal management. The aggregate critical care time was [35] minutes without overlap. Time includes spent on; [x] Data Review and interpretation [x] Patient assessment and monitoring of vital signs [x] Documentation [x] Medication orders and management Subjective Date of service: 05/06/22 Principal diagnosis: Neurogenic dysphagia Interval history: Seen and examined at bedside; 24hour events reviewed; nursing and respiratory care staff consulted; no adverse overnight events reported to me; resting in bed; resting in bed; remains on MVS; remains on Levophed infusion; CXR improved aeration but persitent right lung infiltrates; no vomiting fever, or chills; Right femoral CVL for vasopressor support. HD today Objective Vital Signs - 12hr 05/05/22 05/05/22 05/05/22 23:16 23:30 23:45 Temperature Pulse Rate 64 66 63 Pulse Rate [ Anterior Bilateral Throughout] Pulse Rate [ Bilateral Dorsalis Pedis] Pulse Rate [ From Monitor] Pulse Rate [ Left Dorsalis Pedis] Pulse Rate [ Left Radial] Pulse Rate [ Right Dorsalis Pedis] Pulse Rate [ Right Radial] Respiratory 14 14 14 Rate Respiratory Rate [Anterior Bilateral Throughout] Blood Pressure 113/42 113/42 128/43 O2 Sat by Pulse 100 100 100 Oximetry 05/06/22 05/06/22 05/06/22 00:00 00:15 00:30 Temperature 97.5 F L Pulse Rate 64 67 61 Pulse Rate [ Anterior Bilateral Throughout] Pulse Rate [ Bilateral Dorsalis Pedis] Pulse Rate [ From Monitor] Pulse Rate [ Left Dorsalis Pedis] Pulse Rate [ Left Radial] Pulse Rate [ Right Dorsalis Pedis] Pulse Rate [ Right Radial] Respiratory 14 14 14 Rate Respiratory Rate [Anterior Bilateral Throughout] Blood Pressure 127/36 120/36 113/35 O2 Sat by Pulse 100 100 100 Oximetry 05/06/22 05/06/22 05/06/22 00:45 01:00 01:16 Temperature Pulse Rate 65 65 62 Pulse Rate [ Anterior Bilateral Throughout] Pulse Rate [ Bilateral Dorsalis Pedis] Pulse Rate [ From Monitor] Pulse Rate [ Left Dorsalis Pedis] Pulse Rate [ Left Radial] Pulse Rate [ Right Dorsalis Pedis] Pulse Rate [ Right Radial] Respiratory 13 16 13 Rate Respiratory Rate [Anterior Bilateral Throughout] Blood Pressure 103/40 123/42 128/51 O2 Sat by Pulse 100 100 100 Oximetry 05/06/22 05/06/22 05/06/22 01:30 01:45 02:00 Temperature Pulse Rate 77 63 65 Pulse Rate [ Anterior Bilateral Throughout] Pulse Rate [ Bilateral Dorsalis Pedis] Pulse Rate [ From Monitor] Pulse Rate [ Left Dorsalis Pedis] Pulse Rate [ Left Radial] Pulse Rate [ Right Dorsalis Pedis] Pulse Rate [ Right Radial] Respiratory 14 14 14 Rate Respiratory Rate [Anterior Bilateral Throughout] Blood Pressure 128/51 117/38 132/44 O2 Sat by Pulse 99 100 100 Oximetry 05/06/22 05/06/22 05/06/22 02:16 02:30 02:45 Temperature Pulse Rate 115 H 93 H 99 H Pulse Rate [ Anterior Bilateral Throughout] Pulse Rate [ Bilateral Dorsalis Pedis] Pulse Rate [ From Monitor] Pulse Rate [ Left Dorsalis Pedis] Pulse Rate [ Left Radial] Pulse Rate [ Right Dorsalis Pedis] Pulse Rate [ Right Radial] Respiratory 17 14 14 Rate Respiratory Rate [Anterior Bilateral Throughout] Blood Pressure 134/112 126/75 143/65 O2 Sat by Pulse 93 99 99 Oximetry 05/06/22 05/06/22 05/06/22 03:00 03:08 03:15 Temperature 98.3 F Pulse Rate 79 81 Pulse Rate [ Anterior Bilateral Throughout] Pulse Rate [ Bilateral Dorsalis Pedis] Pulse Rate [ From Monitor] Pulse Rate [ Left Dorsalis Pedis] Pulse Rate [ Left Radial] Pulse Rate [ Right Dorsalis Pedis] Pulse Rate [ Right Radial] Respiratory 14 13 Rate Respiratory Rate [Anterior Bilateral Throughout] Blood Pressure 143/65 119/59 O2 Sat by Pulse 99 100 Oximetry 05/06/22 05/06/22 05/06/22 03:30 03:45 04:00 Temperature Pulse Rate 65 65 62 Pulse Rate [ Anterior Bilateral Throughout] Pulse Rate [ Bilateral Dorsalis Pedis] Pulse Rate [ From Monitor] Pulse Rate [ Left Dorsalis Pedis] Pulse Rate [ Left Radial] Pulse Rate [ Right Dorsalis Pedis] Pulse Rate [ Right Radial] Respiratory 14 14 14 Rate Respiratory Rate [Anterior Bilateral Throughout] Blood Pressure 121/50 130/50 127/47 O2 Sat by Pulse 100 100 100 Oximetry 05/06/22 05/06/22 05/06/22 04:15 04:30 04:45 Temperature Pulse Rate 61 68 82 Pulse Rate [ Anterior Bilateral Throughout] Pulse Rate [ Bilateral Dorsalis Pedis] Pulse Rate [ From Monitor] Pulse Rate [ Left Dorsalis Pedis] Pulse Rate [ Left Radial] Pulse Rate [ Right Dorsalis Pedis] Pulse Rate [ Right Radial] Respiratory 15 14 14 Rate Respiratory Rate [Anterior Bilateral Throughout] Blood Pressure 125/38 123/40 113/42 O2 Sat by Pulse 100 100 100 Oximetry 05/06/22 05/06/22 05/06/22 05:00 05:15 05:30 Temperature Pulse Rate 73 64 64 Pulse Rate [ Anterior Bilateral Throughout] Pulse Rate [ Bilateral Dorsalis Pedis] Pulse Rate [ From Monitor] Pulse Rate [ Left Dorsalis Pedis] Pulse Rate [ Left Radial] Pulse Rate [ Right Dorsalis Pedis] Pulse Rate [ Right Radial] Respiratory 14 14 14 Rate Respiratory Rate [Anterior Bilateral Throughout] Blood Pressure 120/49 123/46 125/40 O2 Sat by Pulse 100 100 100 Oximetry 05/06/22 05/06/22 05/06/22 05:45 06:00 06:15 Temperature Pulse Rate 67 64 78 Pulse Rate [ Anterior Bilateral Throughout] Pulse Rate [ Bilateral Dorsalis Pedis] Pulse Rate [ From Monitor] Pulse Rate [ Left Dorsalis Pedis] Pulse Rate [ Left Radial] Pulse Rate [ Right Dorsalis Pedis] Pulse Rate [ Right Radial] Respiratory 13 14 13 Rate Respiratory Rate [Anterior Bilateral Throughout] Blood Pressure 126/40 119/57 130/52 O2 Sat by Pulse 100 100 100 Oximetry 05/06/22 05/06/22 05/06/22 06:30 06:46 07:00 Temperature Pulse Rate 99 H 117 H 91 H Pulse Rate [ Anterior Bilateral Throughout] Pulse Rate [ Bilateral Dorsalis Pedis] Pulse Rate [ From Monitor] Pulse Rate [ Left Dorsalis Pedis] Pulse Rate [ Left Radial] Pulse Rate [ Right Dorsalis Pedis] Pulse Rate [ Right Radial] Respiratory 13 16 14 Rate Respiratory Rate [Anterior Bilateral Throughout] Blood Pressure 132/55 136/90 136/90 O2 Sat by Pulse 99 96 100 Oximetry 05/06/22 05/06/22 05/06/22 07:15 07:30 07:46 Temperature 97.8 F Pulse Rate 83 78 85 Pulse Rate [ Anterior Bilateral Throughout] Pulse Rate [ 82 Bilateral Dorsalis Pedis] Pulse Rate [ 85 From Monitor] Pulse Rate [ 82 Left Dorsalis Pedis] Pulse Rate [ 77 Left Radial] Pulse Rate [ 82 Right Dorsalis Pedis] Pulse Rate [ 80 Right Radial] Respiratory 14 14 10 L Rate Respiratory Rate [Anterior Bilateral Throughout] Blood Pressure 113/50 106/50 130/52 O2 Sat by Pulse 100 100 100 Oximetry 05/06/22 05/06/22 05/06/22 08:00 08:15 08:30 Temperature Pulse Rate 85 69 80 Pulse Rate [ Anterior Bilateral Throughout] Pulse Rate [ Bilateral Dorsalis Pedis] Pulse Rate [ From Monitor] Pulse Rate [ Left Dorsalis Pedis] Pulse Rate [ Left Radial] Pulse Rate [ Right Dorsalis Pedis] Pulse Rate [ Right Radial] Respiratory 14 14 13 Rate Respiratory Rate [Anterior Bilateral Throughout] Blood Pressure 130/52 141/48 125/66 O2 Sat by Pulse 100 100 100 Oximetry 05/06/22 05/06/22 08:35 08:42 Temperature Pulse Rate 68 Pulse Rate [ 70 Anterior Bilateral Throughout] Pulse Rate [ Bilateral Dorsalis Pedis] Pulse Rate [ From Monitor] Pulse Rate [ Left Dorsalis Pedis] Pulse Rate [ Left Radial] Pulse Rate [ Right Dorsalis Pedis] Pulse Rate [ Right Radial] Respiratory Rate Respiratory 14 Rate [Anterior Bilateral Throughout] Blood Pressure 125/66 O2 Sat by Pulse 100 Oximetry Constitutional: no acute distress, other (eldely female with mildly increased respiratory effort at rest on MVS) Eyes: non-icteric ENT: oropharynx moist, oropharyngeal exudate pre (mild) Neck: supple, no lymphadenopathy, no JVD Effort: mildly labored Ascultation: Bilateral: clear, diminished breath sounds, rales (R>L), rhonchi Percussion: Bilateral: not dull Cardiovascular: regular rate and rhythm, other (S1,S2) Gastrointestinal: normoactive bowel sounds, soft, non-tender, non-distended, other (+ PEG) Integumentary: normal Extremities: no cyanosis, pulses normal, no ischemia or petechiae, edema (2+ january aterally) Neurologic: non-focal exam (grossly), pupils equal and round, other (lethargic ) CBC and BMP: 05/07/22 04:15 05/07/22 04:15 ABG, PT/INR, D-dimer: ABG ABG pH 7.417 pH Units (7.350-7.450) 05/06/22 04:45 ABG pCO2 41.1 mm Hg 05/06/22 04:45 ABG pO2 112.7 mm Hg (80.0-90.0) H 05/06/22 04:45 ABG O2 Saturation 98.1 % (95.0-99.0) 05/06/22 04:45 PT/INR, D-dimer PT 17.6 Sec. (12.2-14.9) H 05/04/22 04:26 INR 1.29 (0.87-1.13) H 05/04/22 04:26 Abnormal lab findings: Abnormal Labs 04/19/22 04/19/22 04/19/22 04:53 04:53 04:53 WBC RBC 3.06 L Hgb 8.6 L Hct 28.0 L RDW 16.3 H Plt Count [place] % (Auto) 11.3 H Lymph # (Auto) Seg Neuts % (Manual) Lymphocytes % (Manual) Nucleated RBC % Seg Neutrophils # Man Lymphocytes # (Manual) PT INR APTT Heparin Anti-Xa Level ABG pH ABG pO2 ABG HCO3 ABG Base Excess ABG Hemoglobin Oxyhemoglobin Sodium Potassium 5.1 H Chloride Carbon Dioxide 21 L BUN 94 H Creatinine 6.3 H Glucose POC Glucose Phosphorus Magnesium Troponin T 0.415 H* Albumin 2.7 L Free T4 0.28 L Crossmatch 04/19/22 04/19/22 04/20/22 19:40 19:40 05:30 WBC 4.1 L RBC 2.97 L Hgb 8.5 L 8.2 L Hct 27.8 L 27.1 L RDW 17.0 H Plt Count [place] % (Auto) 15.2 H Lymph # (Auto) 1.1 L Seg Neuts % (Manual) Lymphocytes % (Manual) Nucleated RBC % Seg Neutrophils # Man Lymphocytes # (Manual) PT 17.9 H INR 1.28 H APTT 199.1 H* Heparin Anti-Xa Level ABG pH ABG pO2 ABG HCO3 ABG Base Excess ABG Hemoglobin Oxyhemoglobin Sodium Potassium Chloride Carbon Dioxide BUN Creatinine Glucose POC Glucose Phosphorus Magnesium Troponin T Albumin Free T4 Crossmatch 04/20/22 04/20/22 04/21/22 05:30 18:23 00:29 WBC RBC Hgb Hct RDW Plt Count [place] % (Auto) Lymph # (Auto) Seg Neuts % (Manual) Lymphocytes % (Manual) Nucleated RBC % Seg Neutrophils # Man Lymphocytes # (Manual) PT INR APTT Heparin Anti-Xa Level 0.17 L ABG pH ABG pO2 ABG HCO3 ABG Base Excess ABG Hemoglobin Oxyhemoglobin Sodium Potassium Chloride Carbon Dioxide 21 L BUN 95 H Creatinine 6.6 H Glucose 139 H POC Glucose Phosphorus Magnesium 2.60 H Troponin T Albumin 2.4 L Free T4 Crossmatch 04/21/22 04/21/22 04/22/22 04:00 04:00 03:45 WBC RBC 2.74 L Hgb 7.7 L Hct 24.7 L RDW 16.6 H Plt Count [place] % (Auto) Lymph # (Auto) Seg Neuts % (Manual) Lymphocytes % (Manual) Nucleated RBC % Seg Neutrophils # Man Lymphocytes # (Manual) PT INR APTT Heparin Anti-Xa Level < 0.10 L ABG pH ABG pO2 ABG HCO3 ABG Base Excess ABG Hemoglobin Oxyhemoglobin Sodium 133 L Potassium Chloride Carbon Dioxide 20 L BUN 89 H Creatinine 6.6 H Glucose 131 H POC Glucose Phosphorus 6.40 H Magnesium 2.50 H Troponin T Albumin Free T4 Crossmatch 04/22/22 04/22/22 04/22/22 03:45 12:13 14:30 WBC RBC Hgb Hct RDW Plt Count [place] % (Auto) Lymph # (Auto) Seg Neuts % (Manual) Lymphocytes % (Manual) Nucleated RBC % Seg Neutrophils # Man Lymphocytes # (Manual) PT INR APTT Heparin Anti-Xa Level 0.11 L 0.11 L ABG pH ABG pO2 ABG HCO3 ABG Base Excess ABG Hemoglobin Oxyhemoglobin Sodium 136 L Potassium Chloride Carbon Dioxide 18 L BUN 90 H Creatinine 6.3 H Glucose 121 H POC Glucose Phosphorus 6.50 H Magnesium Troponin T Albumin Free T4 Crossmatch 04/22/22 04/23/22 04/23/22 23:08 02:17 04:10 WBC RBC Hgb 7.3 L Hct 23.3 L RDW Plt Count [place] % (Auto) Lymph # (Auto) Seg Neuts % (Manual) Lymphocytes % (Manual) Nucleated RBC % Seg Neutrophils # Man Lymphocytes # (Manual) PT INR APTT Heparin Anti-Xa Level 0.14 L ABG pH ABG pO2 ABG HCO3 ABG Base Excess ABG Hemoglobin Oxyhemoglobin Sodium Potassium Chloride Carbon Dioxide BUN Creatinine Glucose POC Glucose 153 H Phosphorus Magnesium Troponin T Albumin Free T4 Crossmatch 04/23/22 04/23/22 04/23/22 04:10 06:09 23:22 WBC RBC Hgb Hct RDW Plt Count [place] % (Auto) Lymph # (Auto) Seg Neuts % (Manual) Lymphocytes % (Manual) Nucleated RBC % Seg Neutrophils # Man Lymphocytes # (Manual) PT INR APTT Heparin Anti-Xa Level ABG pH ABG pO2 ABG HCO3 ABG Base Excess ABG Hemoglobin Oxyhemoglobin Sodium Potassium Chloride Carbon Dioxide BUN 36 H Creatinine 3.4 H Glucose 131 H POC Glucose 141 H 114 H Phosphorus Magnesium Troponin T Albumin Free T4 Crossmatch 04/24/22 04/24/22 04/24/22 02:10 04:00 04:00 WBC RBC 2.48 L Hgb 7.1 L Hct 22.6 L RDW 16.9 H Plt Count [place] % (Auto) Lymph # (Auto) Seg Neuts % (Manual) Lymphocytes % (Manual) Nucleated RBC % Seg Neutrophils # Man Lymphocytes # (Manual) PT INR APTT Heparin Anti-Xa Level 0.12 L ABG pH ABG pO2 ABG HCO3 ABG Base Excess ABG Hemoglobin Oxyhemoglobin Sodium 134 L Potassium Chloride Carbon Dioxide BUN 42 H Creatinine 3.9 H Glucose 141 H POC Glucose Phosphorus Magnesium Troponin T Albumin Free T4 Crossmatch 04/24/22 04/24/22 04/24/22 05:03 10:20 11:24 WBC RBC Hgb Hct RDW Plt Count [place] % (Auto) Lymph # (Auto) Seg Neuts % (Manual) Lymphocytes % (Manual) Nucleated RBC % Seg Neutrophils # Man Lymphocytes # (Manual) PT INR APTT Heparin Anti-Xa Level < 0.10 L ABG pH ABG pO2 ABG HCO3 ABG Base Excess ABG Hemoglobin Oxyhemoglobin Sodium Potassium Chloride Carbon Dioxide BUN Creatinine Glucose POC Glucose 142 H 144 H Phosphorus Magnesium Troponin T Albumin Free T4 Crossmatch 04/25/22 04/25/22 04/25/22 00:15 04:11 04:11 WBC 4.4 L RBC 2.38 L Hgb 6.7 L Hct 21.7 L RDW 17.2 H Plt Count [place] % (Auto) Lymph # (Auto) Seg Neuts % (Manual) Lymphocytes % (Manual) Nucleated RBC % Seg Neutrophils # Man Lymphocytes # (Manual) PT INR APTT Heparin Anti-Xa Level ABG pH ABG pO2 ABG HCO3 ABG Base Excess ABG Hemoglobin Oxyhemoglobin Sodium 134 L Potassium Chloride 97.1 L Carbon Dioxide BUN 47 H Creatinine 4.3 H Glucose 106 H POC Glucose 136 H Phosphorus Magnesium Troponin T Albumin Free T4 Crossmatch 04/25/22 04/25/22 04/25/22 06:01 15:30 22:44 WBC RBC Hgb 8.8 L Hct 28.1 L D RDW Plt Count [place] % (Auto) Lymph # (Auto) Seg Neuts % (Manual) Lymphocytes % (Manual) Nucleated RBC % Seg Neutrophils # Man Lymphocytes # (Manual) PT INR APTT Heparin Anti-Xa Level ABG pH ABG pO2 ABG HCO3 ABG Base Excess ABG Hemoglobin Oxyhemoglobin Sodium Potassium Chloride Carbon Dioxide BUN Creatinine Glucose POC Glucose 137 H Phosphorus Magnesium Troponin T Albumin Free T4 Crossmatch See Detail 04/26/22 04/27/22 04/27/22 04:20 04:45 04:45 WBC RBC 2.81 L 3.13 L Hgb 8.0 L 9.0 L Hct 25.4 L 29.1 L RDW 16.2 H 17.4 H Plt Count [place] % (Auto) Lymph # (Auto) Seg Neuts % (Manual) Lymphocytes % (Manual) Nucleated RBC % Seg Neutrophils # Man Lymphocytes # (Manual) PT INR APTT Heparin Anti-Xa Level ABG pH ABG pO2 ABG HCO3 ABG Base Excess ABG Hemoglobin Oxyhemoglobin Sodium 131 L Potassium Chloride 93.5 L Carbon Dioxide BUN 44 H Creatinine 3.9 H Glucose 135 H POC Glucose Phosphorus Magnesium Troponin T Albumin Free T4 Crossmatch 04/27/22 04/28/22 04/28/22 23:38 05:26 07:54 WBC 11.1 H RBC 2.40 L Hgb 6.9 L Hct 22.1 L D RDW 17.2 H Plt Count [place] % (Auto) Lymph # (Auto) Seg Neuts % (Manual) Lymphocytes % (Manual) Nucleated RBC % Seg Neutrophils # Man Lymphocytes # (Manual) PT INR APTT Heparin Anti-Xa Level ABG pH ABG pO2 ABG HCO3 ABG Base Excess ABG Hemoglobin Oxyhemoglobin Sodium Potassium Chloride Carbon Dioxide BUN Creatinine Glucose POC Glucose 229 H 169 H Phosphorus Magnesium Troponin T Albumin Free T4 Crossmatch 04/28/22 04/28/22 04/29/22 12:31 17:54 00:49 WBC RBC Hgb Hct RDW Plt Count [place] % (Auto) Lymph # (Auto) Seg Neuts % (Manual) Lymphocytes % (Manual) Nucleated RBC % Seg Neutrophils # Man Lymphocytes # (Manual) PT INR APTT Heparin Anti-Xa Level ABG pH ABG pO2 ABG HCO3 ABG Base Excess ABG Hemoglobin Oxyhemoglobin Sodium Potassium Chloride Carbon Dioxide BUN Creatinine Glucose POC Glucose 132 H 138 H 189 H Phosphorus Magnesium Troponin T Albumin Free T4 Crossmatch 0804/29/22 04/29/22 06:42 10:54 10:54 WBC 11.8 H RBC 2.93 L Hgb 8.6 L Hct 26.2 L RDW 16.8 H Plt Count [place] % (Auto) Lymph # (Auto) Seg Neuts % (Manual) Lymphocytes % (Manual) Nucleated RBC % Seg Neutrophils # Man Lymphocytes # (Manual) PT INR APTT Heparin Anti-Xa Level ABG pH ABG pO2 ABG HCO3 ABG Base Excess ABG Hemoglobin Oxyhemoglobin Sodium 129 L Potassium Chloride 91.5 L Carbon Dioxide BUN 46 H Creatinine 3.1 H Glucose 180 H POC Glucose 196 H Phosphorus Magnesium Troponin T Albumin Free T4 Crossmatch 04/29/22 04/29/22 04/30/22 12:03 23:32 05:57 WBC RBC Hgb Hct RDW Plt Count [place] % (Auto) Lymph # (Auto) Seg Neuts % (Manual) Lymphocytes % (Manual) Nucleated RBC % Seg Neutrophils # Man Lymphocytes # (Manual) PT INR APTT Heparin Anti-Xa Level ABG pH ABG pO2 ABG HCO3 ABG Base Excess ABG Hemoglobin Oxyhemoglobin Sodium Potassium Chloride Carbon Dioxide BUN Creatinine Glucose POC Glucose 169 H 170 H 151 H Phosphorus Magnesium Troponin T Albumin Free T4 Crossmatch 04/30/22 04/30/22 04/30/22 11:28 16:39 23:22 WBC RBC Hgb Hct RDW Plt Count [place] % (Auto) Lymph # (Auto) Seg Neuts % (Manual) Lymphocytes % (Manual) Nucleated RBC % Seg Neutrophils # Man Lymphocytes # (Manual) PT INR APTT Heparin Anti-Xa Level ABG pH ABG pO2 ABG HCO3 ABG Base Excess ABG Hemoglobin Oxyhemoglobin Sodium Potassium Chloride Carbon Dioxide BUN Creatinine Glucose POC Glucose 159 H 147 H 170 H Phosphorus Magnesium Troponin T Albumin Free T4 Crossmatch 05/01/22 05/01/22 05/01/22 04:00 05:34 15:23 WBC RBC 2.92 L Hgb 8.4 L Hct 26.7 L RDW 16.6 H Plt Count [place] % (Auto) Lymph # (Auto) Seg Neuts % (Manual) Lymphocytes % (Manual) Nucleated RBC % Seg Neutrophils # Man Lymphocytes # (Manual) PT INR APTT Heparin Anti-Xa Level ABG pH ABG pO2 74.2 L ABG HCO3 27.8 H ABG Base Excess ABG Hemoglobin 8.7 L Oxyhemoglobin 94.5 L Sodium Potassium Chloride Carbon Dioxide BUN Creatinine Glucose POC Glucose 140 H Phosphorus Magnesium Troponin T Albumin Free T4 Crossmatch 05/02/22 05/02/22 05/02/22 05:54 05:54 05:54 WBC RBC 2.85 L Hgb 8.3 L Hct 25.9 L RDW 16.5 H Plt Count [place] % (Auto) Lymph # (Auto) Seg Neuts % (Manual) Lymphocytes % (Manual) Nucleated RBC % Seg Neutrophils # Man Lymphocytes # (Manual) PT INR APTT Heparin Anti-Xa Level ABG pH ABG pO2 ABG HCO3 ABG Base Excess ABG Hemoglobin Oxyhemoglobin Sodium 130 L 128 L Potassium Chloride 90.9 L 90.0 L Carbon Dioxide BUN 49 H 49 H Creatinine 3.7 H 3.8 H Glucose 191 H 184 H POC Glucose Phosphorus Magnesium Troponin T Albumin Free T4 Crossmatch 05/02/22 05/03/22 05/03/22 14:15 04:24 04:24 WBC RBC 2.71 L Hgb 7.8 L Hct 24.8 L RDW 16.6 H Plt Count [place] % (Auto) Lymph # (Auto) Seg Neuts % (Manual) Lymphocytes % (Manual) Nucleated RBC % Seg Neutrophils # Man Lymphocytes # (Manual) PT INR APTT 39.4 H Heparin Anti-Xa Level ABG pH ABG pO2 ABG HCO3 29.1 H ABG Base Excess 4.3 H ABG Hemoglobin 8.4 L Oxyhemoglobin 94.8 L Sodium Potassium Chloride Carbon Dioxide BUN Creatinine Glucose POC Glucose Phosphorus Magnesium Troponin T Albumin Free T4 Crossmatch 05/03/22 05/03/22 05/03/22 04:24 15:17 17:30 WBC RBC Hgb Hct RDW Plt Count [place] % (Auto) Lymph # (Auto) Seg Neuts % (Manual) Lymphocytes % (Manual) Nucleated RBC % Seg Neutrophils # Man Lymphocytes # (Manual) PT INR APTT Heparin Anti-Xa Level ABG pH 7.577 H ABG pO2 140.4 H ABG HCO3 26.4 H ABG Base Excess 4.0 H ABG Hemoglobin 5.4 L Oxyhemoglobin Sodium 132 L Potassium Chloride 93.0 L Carbon Dioxide BUN 31 H Creatinine 2.8 H Glucose 119 H POC Glucose 60 L Phosphorus 2.10 L Magnesium Troponin T Albumin Free T4 Crossmatch 05/03/22 05/04/22 05/04/22 23:33 04:26 04:26 WBC 16.0 H RBC 2.39 L Hgb 6.9 L Hct 21.4 L RDW 15.8 H Plt Count [place] % (Auto) Lymph # (Auto) Seg Neuts % (Manual) Lymphocytes % (Manual) Nucleated RBC % Seg Neutrophils # Man Lymphocytes # (Manual) PT INR APTT Heparin Anti-Xa Level ABG pH ABG pO2 ABG HCO3 ABG Base Excess ABG Hemoglobin Oxyhemoglobin Sodium 133 L Potassium Chloride 94.8 L Carbon Dioxide BUN 34 H Creatinine 3.5 H Glucose 175 H POC Glucose 106 H Phosphorus Magnesium Troponin T Albumin Free T4 Crossmatch 05/04/22 05/04/22 05/04/22 04:26 05:30 05:40 WBC RBC Hgb Hct RDW Plt Count [place] % (Auto) Lymph # (Auto) Seg Neuts % (Manual) Lymphocytes % (Manual) Nucleated RBC % Seg Neutrophils # Man Lymphocytes # (Manual) PT 17.6 H INR 1.29 H APTT Heparin Anti-Xa Level ABG pH 7.547 H ABG pO2 141.7 H ABG HCO3 27.2 H ABG Base Excess 5.3 H ABG Hemoglobin 6.9 L Oxyhemoglobin Sodium Potassium Chloride Carbon Dioxide BUN Creatinine Glucose POC Glucose Phosphorus Magnesium Troponin T Albumin Free T4 Crossmatch See Detail 05/04/22 05/04/22 05/04/22 05:41 12:55 18:10 WBC RBC Hgb Hct RDW Plt Count [place] % (Auto) Lymph # (Auto) Seg Neuts % (Manual) Lymphocytes % (Manual) Nucleated RBC % Seg Neutrophils # Man Lymphocytes # (Manual) PT INR APTT Heparin Anti-Xa Level ABG pH ABG pO2 ABG HCO3 ABG Base Excess ABG Hemoglobin Oxyhemoglobin Sodium Potassium Chloride Carbon Dioxide BUN Creatinine Glucose POC Glucose 177 H 141 H 143 H Phosphorus Magnesium Troponin T Albumin Free T4 Crossmatch 05/05/22 05/05/22 05/05/22 00:05 04:20 04:20 WBC 12.8 H RBC 2.81 L Hgb 8.0 L Hct 24.8 L RDW 16.8 H Plt Count [place] % (Auto) Lymph # (Auto) Seg Neuts % (Manual) 86.0 H Lymphocytes % (Manual) 4.0 L Nucleated RBC % 1.0 H Seg Neutrophils # Man 11.0 H Lymphocytes # (Manual) 0.5 L PT INR APTT Heparin Anti-Xa Level ABG pH ABG pO2 ABG HCO3 ABG Base Excess ABG Hemoglobin Oxyhemoglobin Sodium 130 L Potassium 3.3 L Chloride 94.0 L Carbon Dioxide BUN 24 H Creatinine 2.3 H Glucose 163 H POC Glucose 163 H Phosphorus 1.50 L Magnesium Troponin T Albumin Free T4 Crossmatch 05/05/22 05/05/22 05/05/22 05:18 10:06 12:11 WBC RBC Hgb Hct RDW Plt Count [place] % (Auto) Lymph # (Auto) Seg Neuts % (Manual) Lymphocytes % (Manual) Nucleated RBC % Seg Neutrophils # Man Lymphocytes # (Manual) PT INR APTT Heparin Anti-Xa Level ABG pH ABG pO2 91.7 H ABG HCO3 27.4 H ABG Base Excess ABG Hemoglobin 11.4 L Oxyhemoglobin Sodium Potassium Chloride Carbon Dioxide BUN Creatinine Glucose POC Glucose 163 H 186 H Phosphorus Magnesium Troponin T Albumin Free T4 Crossmatch 05/05/22 05/06/22 05/06/22 16:29 04:45 04:59 WBC RBC Hgb Hct RDW Plt Count [place] % (Auto) Lymph # (Auto) Seg Neuts % (Manual) Lymphocytes % (Manual) Nucleated RBC % Seg Neutrophils # Man Lymphocytes # (Manual) PT INR APTT Heparin Anti-Xa Level ABG pH ABG pO2 112.7 H ABG HCO3 ABG Base Excess ABG Hemoglobin 7.8 L Oxyhemoglobin Sodium Potassium Chloride Carbon Dioxide BUN Creatinine Glucose POC Glucose 170 H 146 H Phosphorus Magnesium Troponin T Albumin Free T4 Crossmatch 05/06/22 05/06/22 05:02 05:02 WBC RBC 2.78 L Hgb 7.9 L Hct 25.1 L RDW 16.7 H Plt Count 119 L [place] % (Auto) Lymph # (Auto) Seg Neuts % (Manual) Lymphocytes % (Manual) Nucleated RBC % Seg Neutrophils # Man Lymphocytes # (Manual) PT INR APTT Heparin Anti-Xa Level ABG pH ABG pO2 ABG HCO3 ABG Base Excess ABG Hemoglobin Oxyhemoglobin Sodium 135 L Potassium 3.3 L Chloride 97.9 L Carbon Dioxide BUN 30 H Creatinine 2.7 H Glucose 148 H POC Glucose Phosphorus 1.50 L Magnesium Troponin T Albumin Free T4 Crossmatch Chest x-ray: image reviewed Allied health notes reviewed: RT
--- NOTE | 2022-05-06 11:23 | Progress Note ---
<COLLETTE HANNA - Last Filed: 05/06/22 16:53> Assessment and Plan Assessment and plan: This is a 66-year-old female with known past medical history of HTN, GERD, Seizure disorder, vascular dementia, ESRD on HD(TTS), OA, bipolar disorder, schizophrenia, anxiety disorder, and limited mobility admitted for Acute hypxic respiratory, hypotension, and SVT s/p X2 doses adenosine and cardioversion. Hospital Course to Date: 04/20: Patient went into Afib with RVR overnight, now on amiodarone gtt per yan cuello. Patient remains in AFib with RVR this am, HR in the 120-140s. BP marginal on Levophed gtt, currently not a candidate for BB. Midodrine increased to 15mg TID. 2D Echo pending. On heparin gtt per protocol. No HD today per nephro due to hypotension and tachycardia. 04/21: Converted to SR this am, remains on Amiodarone and heparin. Awaiting cardio final recommendations. Still on Levophed gtt for low BP, given patient history of chronic hypotension, Wean pressor for MAP goal of 60s. Patient is pocketing foods, currently NPO, awaiting speech eval and treat. 04/22: Patient passed speech swallow eval yesterday, however, patient is refusing PO intakes including meds. Will insert DHT for nutrition and meds administration. Patient remains in SR this am, amiodaron gtt transitioned to PO per cardio. Patient remains on heparin and Levophed gtt. Patient has not received PO midrodrine for 24hrs, resume meds once DHT is inserted. Keep femoral CVC for another 24hrs, anticipating will be able to wean off pressor once patient receive midodrine. Will reassess in the morning. No HD overnight, unable to cannulate AVF, plan to attempt again today per Nephro. Possible IR/Vascular surgery consult if unsuccessful again today. 04/23: Mentation a lot better this am. DHT was inserted, meds resumed and TF initiated. Levophed gtt increased overnight due to worsen hypotension, suspected it is due to sedative agents. Seroquel decreased to 200mg BID and scheduled ativan switched to PRN. Continue midodrine TID and wean off levophed gtt for MAP goal of 60. Patient tolerated HD yesterday, continue iHD per Nephrology. CCM recommendations noted, Chest US ordered for pleural effusion. 04/24: RN instructed to wean Levophed off, goal MAP of 60. Heparin drip stopped due to decreasing hemoglobin. 04/25: had cleared the patient for pured diet which will be started today, hemodialysis planned for today, patient was to be anemic and will receive 1 unit PRBC with HD. We will increase midodrine to 20 mg 3 times daily if patient becomes hypotensive during dialysis. Per CCM. Decrease in seroqoul but will increase if needed 04/26: Patient agreeable to PEG, GI consulted for placement. Femoral line removed 04/27: No acute events reported overnight, patient has been cardiac cleared for PEG tube placement. Possible PEG in the a.m. This afternoon attempted to place IJ CVL which was unsuccessful and Dr. Mcguire ultimately placed femoral CVL for the initiation of Levophed. HD scheduled for today. 04/28: Patient initially started on Levophed yesterday and she received a femoral CVL. 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 Vascular surgery was consulted. Patient also noted to be anemic and received 1 unit PRBC today. 04/29: Possible hemodialysis today, patient was able to be weaned off of Levophed today. Hemoglobin responded well to 1 unit PRBC. Awaiting trach/PEG placement. Patient will not need to be started on heparin drip per vascular surgery. No acute events reported overnight. 04/30: HD yesterday without removal of fluids, patient needs NT suctioning. Updated son today. 05/01: Patient with increase mucous production and is unable to fully clear her airway, Rhonchi auscultated throughout her lungs this am. SPO2 at 90 to 94% on 3L NC. D/W CCM, patient is high risk for aspiration will placed patient on heated HF at 40L for now instead of Bipap. Nasal bleeding also noted, mostly due to NT suctioning. Refrain from NT suctioning for now due to bleeding, only oral suctioning. PO seroquel held this amP atient is AAO, appropriate, and following commands. Levophed gtt weaned off, patient remains hemodynamically stable. Will discuss Nephro for possible fluid removal tonight or early tomorrow. Very low threshold for intubation. Patient's condition and plan of care, including possible intubation, thoroughly discussed with patient's son-Raymundo Randolph at . Patient's son verbalized understanding of the info provided and agreed with intubation if necessary. 05/02: Remains on HHFL at 40% and 40L, mentation is unchanged. HD at the bedside, plan for possible UF with fluid removal today. Continue O2 supplementation and wean as tolerated, for SPO2 above 92%. Repeat CXR in the am. Patient vital signs remains stable, still off pressors. Plan for possible PEG-tube placement by GI tomorrow, NPO after MN. Possible fistulogram for RIJ thrombus on or sunday per Vascular Surgery. 05/03: Complete white-out of right side from this am CXR, probable mucus plug. S/p intubation and bronch at the bedside by [facility]. Patient remains sedated and required short duration of Levophed gtt during the procedure. Pressor was wean off, VSS. Plan for CPT and mucomyst Q12hrs. Repeat CXR in the am. PEG-Tube placement postpone for possibly tomorrow if patient remains stable. Possible fistulogram for RIJ thrombus on or Sunday per Vascular Surgery. 05/04: Remains on the vent, easily arousable. High fevers overnight with spike in leukocytosis, now on 2 pressors. [facility] d/w ID, recommendations to repeat blood cultures and empiric IV abx- Cefepine and Vanco. low H&H this am, no s/s of any active bleeding, 1units of PRBCs during iHD today. S/p PEG-tube placement at this bedside this am by , no complications noted. Resume TF once clear by GI. 05/05: Remains on low vent setting. This am CXR with increase opacities on the right side again today, s/p therapeutic bronch at the bedside today by [facility]. Repeat CXR in the am. Remains with low grade fevers and on 2 pressors. Bronchial wash with Staph A. and blood cultures pending. Continue current IV Abx per ID. 05/06: Stable on the vent this am. Only on low dose pressors, MAP above 65. CXR with some improvement, peep dropped to 8 per CCM. Continue CPT and Mucomyst TID. If patient remains stable overnight, possible PSV trial in the am. Fevers and leukocytosis improved. Continue current IV Abx per ID. Continue iHD per Nephro Assessement and Plan #Atrial Fibrillation with RVR #Supraventricular Tachycardia s/p Cardioversion #Acute on Chronic Hypotension #NSTEMI Type 2 - Presented with AMS, Tachycardia, and hypotension requiring pressors - was found in SVT in the ED s/p unsuccessful X2 doses of adenosine then cardioversion. - Patient initially converted to SR post cardioversion, then went into afib RVR in the ICU - Elevated troponin most likely related to ESRD - Cardiology consulted, appreciate recommendations - s/p Amio gtt now on PO per Cardio. Patient remains in SR - On 2 pressors this am, with fevers and leukocytosis - Continue Midodrine TID - Continue blood pressure monitor per protocol - Titrate pressors for MAP goal of 60 - Not a candidate for MARGOTH, ARB, and BB due to hypotension - 2D Echo EF 60-65% - on Lipitor and Plavix - CCM also following #Septic Shock #Bilateral Pneumonia - With fevers, worsen leukocytosis, and now on 2 pressors - Imaging with bilateral opacities, Rt>Lt - Bronch wash with staph A., blood cultures pending - ID consulted, appreciated recommendation - Continue empiric IV Abx- Cefepine and Vanco - F/U on cultures - Daily CBC monitor #Acute Hypoxic Respiratory Failure #Moderate Pleural Effusion - with worsening respiratory status this am - Complete white-out of right side from this am CXR, probable mucus plug - 05/01 s/p Intubation and bronch at the bedside by [facility] - This am CXR with increase opacities on the right side again today - 05/05 s/p therapeutic bronch at the bedside today by [facility] - Vent setting: PRVC-40%,8,14,450 - This am ABG noted - CCM consulted, appreciate recommendations - Plan for CPT at least 4 to 6 times a day, and Mucomyst TID - VAP bundle addressed - Aspiration precaution HOB above 30 - Daily SBT and SAT trials as tolerated - Daily ABG and CXR - Continue SPO2 monitoring for SPO2 goal above 92% #Acute Metabolic Encephalopathy #H/o Vascular Dementia #Severe Anxiety #Bipolar Disorder & Schizophrenia - Presented with AMS, probably due to above - s/p intubation, arousable, not on any sedations - No continue sedation gtt warranted at this time - Continue home meds - PRN Analgesia for pain control/vent synchrony - Maintenance of sleep-wake cycle - Mental Health/Psych on consult #End-Stage Renal Disease(ESRD) on HD - Nephrology on consult, appreciated recommendations - Continue iHD per Nephro - Strict intake and output - Avoid nephrotoxic medications; Renally dose medications - Monitor and replace electrolytes as needed #Anemia of Chronic Disease #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 Plan for possible vascular intervention sometimes this week - AC on hold due to worsen anemia #H/o Seizure Disorder - Resume home meds #Dysphagia #Moderate Protein Caloric Malnutrition - Failed speech swallow- they recommended PEG-Tube - GI consulted, appreciate recommendation - 05/04 s/p PEG-tube placement at this bedside this am by GI - Resume TF once cleared by GI - Nutrition consulted #GI/DVT Prophylaxis - PPI- Protonix - SCDs to bilateral lower extremities while in bed #Advance Care Planning - Disease education data, care plan, diagnoses, and prognosis were discussed wi th patient's son at the bedside. Patient is a FULL code. Patient acknowledged understanding and agreed with current care plan. The high probability of a clinically significant, sudden or life threatening deterioration of the [multiple] system(s) required my full and direct attention, intervention and personal management. The aggregate critical care time was [60] minutes. This time is in addition to time spent performing reported procedures but includes the following: [x] Data Review and interpretation [x] Patient assessment and monitoring of vital signs [x] Documentation [x] Medication orders and management Disposition Plan: ICU Total Time Spent with Patient (Minutes): 60 History Interval history: Patient seen and examined at the bedside. Remains stable on the vent. Awake and alert, following simple commands. Not on any sedation. Only on vaso this am, Levophed gtt is off. GUERRERO overnight Hospitalist Physical - Physical exam Narrative exam: General appearance: Present: No acute distress, well-nourished, obese, Other (Intubated, not on any sedation) - EENT Eyes: Present: PERRL ENT: hearing intact, poor dentition - Neck Neck: Present: normal ROM - Respiratory Respiratory effort: normal Respiratory: bilateral: diminished - Cardiovascular Rhythm: irregularly irregular Heart Sounds: Present: S1 & S2 - Extremities Extremities: no ischemia, pulses intact, pulses symmetrical Extremity abnormal: edema - Peripheral Assessment Generalized Edema Type: pitting Edema Degree: 2+ Capillary Refill: < 3 seconds Skin Temperature: Warm Peripheral Pulses: within normal limits Right Upper Extremity Edema Type: pitting Edema Degree: 3+ Capillary Refill: < 3 seconds Skin Temperature: Warm Peripheral Pulses: within normal limits - Abdominal General gastrointestinal: soft, non-distended, normal bowel sounds - Integumentary Integumentary: Present: warm, dry - Psychiatric Psychiatric: appropriate mood/affect, cooperative, other (Intubated, not on any sedation. Awake and alert, following commands) - Neurologic Neurologic: moves all extremities, other (Intubated, not on any sedation. Awake and alert, following commands) - Allied Health Allied health notes reviewed: nursing, case management - Constitutional Vitals: Temp Pulse Resp BP Pulse Ox 97.8 F 70 14 125/66 100 05/06/22 07:30 05/06/22 08:42 05/06/22 08:42 05/06/22 08:35 05/06/22 08:35 HEART Score - HEART Score Troponin: Troponin T 0.415 ng/mL (0.00-0.029) H* 04/19/22 04:53 Results - Labs CBC & Chem 7: 05/06/22 05:02 05/06/22 05:02 Labs: Laboratory Last Values WBC 9.6 K/mm3 (4.5-11.0) 05/06/22 05:02 RBC 2.78 M/mm3 (3.65-5.03) L 05/06/22 05:02 Hgb 7.9 gm/dl (10.1-14.3) L 05/06/22 05:02 Hct 25.1 % (30.3-42.9) L 05/06/22 05:02 MCV 90 fl (79-97) 05/06/22 05:02 MCH 28 pg (28-32) 05/06/22 05:02 MCHC 32 % (30-34) 05/06/22 05:02 RDW 16.7 % (13.2-15.2) H 05/06/22 05:02 Plt Count 119 K/mm3 (140-440) L 05/06/22 05:02 Lymph % (Auto) 26.7 % (13.4-35.0) 04/20/22 05:30 Stoddard % (Auto) 15.2 % (0.0-7.3) H 04/20/22 05:30 Eos % (Auto) 3.8 % (0.0-4.3) 04/20/22 05:30 Baso % (Auto) 1.2 % (0.0-1.8) 04/20/22 05:30 Lymph # (Auto) 1.1 K/mm3 (1.2-5.4) L 04/20/22 05:30 Stoddard # (Auto) 0.6 K/mm3 (0.0-0.8) 04/20/22 05:30 Eos # (Auto) 0.2 K/mm3 (0.0-0.4) 04/20/22 05:30 Baso # (Auto) 0.0 K/mm3 (0.0-0.1) 04/20/22 05:30 Add Manual Diff Complete 05/05/22 04:20 Total Counted 100 05/05/22 04:20 Seg Neutrophils % 53.1 % (40.0-70.0) 04/20/22 05:30 Seg Neuts % (Manual) 86.0 % (40.0-70.0) H 05/05/22 04:20 Band Neutrophils % 3.0 % 05/05/22 04:20 Lymphocytes % (Manual) 4.0 % (13.4-35.0) L 05/05/22 04:20 Reactive Lymphs % (Man) 0 % 05/05/22 04:20 Monocytes % (Manual) 6.0 % (0.0-7.3) 05/05/22 04:20 Eosinophils % (Manual) 1.0 % (0.0-4.3) 05/05/22 04:20 Basophils % (Manual) 0 % (0.0-1.8) 05/05/22 04:20 Metamyelocytes % 0 % 05/05/22 04:20 Myelocytes % 0 % 05/05/22 04:20 Promyelocytes % 0 % 05/05/22 04:20 Blast Cells % 0 % 05/05/22 04:20 Nucleated RBC % 1.0 % (0.0-0.9) H 05/05/22 04:20 Seg Neutrophils # 2.2 K/mm3 (1.8-7.7) 04/20/22 05:30 Seg Neutrophils # Man 11.0 K/mm3 (1.8-7.7) H 05/05/22 04:20 Band Neutrophils # 0.4 K/mm3 05/05/22 04:20 Lymphocytes # (Manual) 0.5 K/mm3 (1.2-5.4) L 05/05/22 04:20 Abs React Lymphs (Man) 0.0 K/mm3 05/05/22 04:20 Monocytes # (Manual) 0.8 K/mm3 (0.0-0.8) 05/05/22 04:20 Eosinophils # (Manual) 0.1 K/mm3 (0.0-0.4) 05/05/22 04:20 Basophils # (Manual) 0.0 K/mm3 (0.0-0.1) 05/05/22 04:20 Metamyelocytes # 0.0 K/mm3 05/05/22 04:20 Myelocytes # 0.0 K/mm3 05/05/22 04:20 Promyelocytes # 0.0 K/mm3 05/05/22 04:20 Blast Cells # 0.0 K/mm3 05/05/22 04:20 WBC Morphology Not Reportable 05/05/22 04:20 Hypersegmented Neuts Not Reportable 05/05/22 04:20 Hyposegmented Neuts Not Reportable 05/05/22 04:20 Hypogranular Neuts Not Reportable 05/05/22 04:20 Smudge Cells Not Reportable 05/05/22 04:20 Toxic Granulation Not Reportable 05/05/22 04:20 Toxic Vacuolation Not Reportable 05/05/22 04:20 Dohle Bodies Not Reportable 05/05/22 04:20 Pelger-Huet Anomaly Not Reportable 05/05/22 04:20 Ubaldo Rods Not Reportable 05/05/22 04:20 Platelet Estimate Consistent w auto 05/05/22 04:20 Clumped Platelets Not Reportable 05/05/22 04:20 Plt Clumps, EDTA Not Reportable 05/05/22 04:20 Large Platelets Not Reportable 05/05/22 04:20 Giant Platelets Not Reportable 05/05/22 04:20 Platelet Satelliting Not Reportable 05/05/22 04:20 Plt Morphology Comment Not Reportable 05/05/22 04:20 RBC Morphology Not Reportable 05/05/22 04:20 Dimorphic RBCs Not Reportable 05/05/22 04:20 Polychromasia Not Reportable 05/05/22 04:20 Hypochromasia 2+ 05/05/22 04:20 Poikilocytosis Not Reportable 05/05/22 04:20 Anisocytosis 1+ 05/05/22 04:20 Microcytosis Not Reportable 05/05/22 04:20 Macrocytosis Not Reportable 05/05/22 04:20 Spherocytes Not Reportable 05/05/22 04:20 Pappenheimer Bodies Not Reportable 05/05/22 04:20 Sickle Cells Not Reportable 05/05/22 04:20 Target Cells Not Reportable 05/05/22 04:20 Tear Drop Cells Not Reportable 05/05/22 04:20 Ovalocytes Not Reportable 05/05/22 04:20 Helmet Cells Not Reportable 05/05/22 04:20 Rangel-Ramireno Bodies Not Reportable 05/05/22 04:20 Ponderosa Rings Not Reportable 05/05/22 04:20 [place] Cells Not Reportable 05/05/22 04:20 Bite Cells Not Reportable 05/05/22 04:20 Crenated Cell Not Reportable 05/05/22 04:20 Elliptocytes Not Reportable 05/05/22 04:20 Acanthocytes (Spur) Not Reportable 05/05/22 04:20 Rouleaux Not Reportable 05/05/22 04:20 Hemoglobin C Crystals Not Reportable 05/05/22 04:20 Schistocytes Not Reportable 05/05/22 04:20 Malaria parasites Not Reportable 05/05/22 04:20 Torrey Bodies Not Reportable 05/05/22 04:20 Hem Pathologist Commnt No 05/05/22 04:20 PT 17.6 Sec. (12.2-14.9) H 05/04/22 04:26 INR 1.29 (0.87-1.13) H 05/04/22 04:26 APTT 39.4 Sec. (24.2-36.6) H 05/03/22 04:24 Heparin Anti-Xa Level < 0.10 U.I./ml (0.3-0.7) L 04/24/22 10:20 ABG pH 7.417 pH Units (7.350-7.450) 05/06/22 04:45 ABG pCO2 41.1 mm Hg 05/06/22 04:45 ABG pO2 112.7 mm Hg (80.0-90.0) H 05/06/22 04:45 ABG HCO3 25.9 mmol/L (20.0-26.0) 05/06/22 04:45 ABG O2 Saturation 98.1 % (95.0-99.0) 05/06/22 04:45 ABG O2 Content 10.8 (0.0-44) 05/06/22 04:45 ABG Base Excess 1.2 mmol/L (-2.0-3.0) 05/06/22 04:45 ABG Hemoglobin 7.8 gm/dl (12.0-16.0) L 05/06/22 04:45 ABG Carboxyhemoglobin 1.6 % (0.0-5.0) 05/06/22 04:45 ABG Methemoglobin 0.5 % (0.0-1.5) 05/06/22 04:45 Oxyhemoglobin 96.1 % (95.0-99.0) 05/06/22 04:45 FiO2 40 % 05/06/22 04:45 Sodium 135 mmol/L (137-145) L 05/06/22 05:02 Potassium 3.3 mmol/L (3.6-5.0) L 05/06/22 05:02 Chloride 97.9 mmol/L (98-107) L 05/06/22 05:02 Carbon Dioxide 24 mmol/L (22-30) 05/06/22 05:02 Anion Gap 16 mmol/L 05/06/22 05:02 BUN 30 mg/dL (7-17) H 05/06/22 05:02 Creatinine 2.7 mg/dL (0.6-1.2) H 05/06/22 05:02 Estimated GFR 21 ml/min 05/06/22 05:02 BUN/Creatinine Ratio 11 % 05/06/22 05:02 Glucose 148 mg/dL (65-100) H 05/06/22 05:02 POC Glucose 146 mg/dL (70-105) H 05/06/22 04:59 Lactic Acid 1.60 mmol/L (0.7-2.0) 04/19/22 07:14 Calcium 9.1 mg/dL (8.4-10.2) 05/06/22 05:02 Phosphorus 1.50 mg/dL (2.5-4.5) L 05/06/22 05:02 Magnesium 1.90 mg/dL (1.7-2.3) 05/06/22 05:02 Total Bilirubin 0.30 mg/dL (0.1-1.2) 04/20/22 05:30 AST 11 units/L (5-40) 04/20/22 05:30 ALT 7 units/L (7-56) 04/20/22 05:30 Alkaline Phosphatase 101 units/L (35-129) 04/20/22 05:30 Ammonia 25.0 umol/L (25-60) 04/19/22 04:53 Troponin T 0.415 ng/mL (0.00-0.029) H* 04/19/22 04:53 Total Protein 6.4 g/dL (6.3-8.2) 04/20/22 05:30 Albumin 2.4 g/dL (3.9-5) L 04/20/22 05:30 Albumin/Globulin Ratio 0.6 % 04/20/22 05:30 Procalcitonin 42.42 ng/mL (<0.15) 05/05/22 04:20 TSH 1.700 mlU/mL (0.270-4.200) 04/19/22 04:53 Free T4 0.28 ng/dL (0.76-1.46) L 04/19/22 04:53 Total Cortisol 24.4 mcg/dL () 04/27/22 04:45 Coronavirus (PCR) Negative (Negative) 05/03/22 11:30 Hepatitis A IgM Ab Non-reactive (NonReactive) 04/19/22 04:53 Hep Bs Antigen Non-reactive (Negative) 04/19/22 04:53 Hep B Core IgM Ab Non-reactive (NonReactive) 04/19/22 04:53 Hepatitis C Antibody Non-reactive (NonReactive) 04/19/22 04:53 Blood Type A POSITIVE 05/04/22 05:30 Antibody Screen Negative 05/04/22 05:30 Crossmatch See Detail 05/04/22 05:30 Microbiology: Microbiology 05/04/22 16:30 Peripheral/Venous Blood Culture - Preliminary NO GROWTH AFTER 24 HOURS 05/04/22 16:30 Peripheral/Venous Blood Culture - Preliminary NO GROWTH AFTER 24 HOURS Cleary/IV: Voiding Method Incontinent Active Medications - Current Medications Current Medications: Generic Name Dose Route Start Last Admin Trade Name Freq PRN Reason Stop Dose Admin Acetaminophen 650 mg 04/22/22 20:12 05/03/22 23:41 Acetaminophen 325 Mg/10.15 Ml Oral Liqd Unit Dose PO 650 mg Q6H PRN Administration Pain MILD(1-3)/Fever >100.5/DRAKE Acetylcysteine 200 mg 05/05/22 14:00 05/06/22 08:42 Acetylcysteine 20% 200 Mg/1 Ml *For Inhalation Use* INHALATION 05/10/22 13:59 200 mg TID CONNOR Administration Albumin Human 25 gm 04/21/22 13:00 04/22/22 16:31 Albumin Human 25% (25 Gm/100 Ml) Inj IV 25 gm BIANCA PRN Administration Hypotension Albuterol 2.5 mg 04/21/22 08:30 04/24/22 16:51 Albuterol 2.5 Mg/3 Ml Nebu IH 2.5 mg Q3HRT PRN Administration Shortness Of Breath Albuterol/Ipratropium 1 ampul 04/21/22 14:00 05/06/22 08:42 Ipratropium/Albuterol Sulfate 3 Ml Ampul.Neb IH 1 ampul TIDRT CONNOR Administration Docusate Sodium 100 mg 05/01/22 22:00 05/06/22 09:33 Docusate Sodium 100 Mg/10 Ml Oral Liqd FEEDTUBE 100 mg BID CONNOR Administration Epoetin Lb-epbx 20,000 unit 04/23/22 12:00 05/04/22 13:19 Epoetin Lb-Epbx 20,000 Unit/1 Ml Vial IV 20,000 unit BIANCA PRN Administration HEMODIALYSIS Fentanyl 50 mcg 05/03/22 10:29 05/05/22 12:23 Fentanyl 100 Mcg/2 Ml Inj IV 25 mcg Q10MIN PRN Administration ANALGESIA Sodium Chloride 100 mls @ 999 mls/hr 04/22/22 09:12 Nacl 0.9% IV BIANCA PRN Hypotension Fentanyl Citrate 2,000 mcg in 100 mls @ 2.722 mls/hr 05/03/22 11:00 Fentanyl Drip Premix IV TITR CONNOR Protocol 1 MCG/KG/HR NORepinephrine/NS 8 MG-250 ML 8 mg in 250 mls @ 3.75 mls/hr 05/03/22 13:15 05/06/22 10:06 Norepinephrine/Ns 8 Mg-250 Ml (Double Conc) IV 0 mcg/min TITRATE CONNOR 0 mls/hr Titration Protocol 2 MCG/MIN Vasopressin 20 unit/ Sodium 101 mls @ 9.09 mls/hr 05/04/22 00:30 05/06/22 11:21 Chloride IV 0 units/min TITR CONNOR 0 mls/hr Infusion 0.03 UNITS/MIN Cefepime HCl 1 gm in 100 mls @ 200 mls/hr 05/04/22 18:00 05/05/22 17:37 Cefepime/Ns 1 Gm/100 Ml IV 200 mls/hr QPM CONNOR Administration Protocol Lansoprazole 30 mg 04/23/22 10:00 05/06/22 09:32 Lansoprazole 30 Mg Solutab FEEDTUBE 30 mg QDAY CONNOR Administration Lorazepam 0.5 mg 04/25/22 09:59 Lorazepam 0.5 Mg Tab FEEDTUBE QDAY PRN Anxiety Memantine 5 mg 04/25/22 10:00 05/06/22 09:33 Memantine 5 Mg Tab FEEDTUBE 5 mg BID CONNOR Administration Metoclopramide HCl 5 mg 04/19/22 09:55 Metoclopramide 10 Mg/2 Ml Inj IV Q6H PRN Nausea And Vomiting Midodrine 20 mg 04/26/22 14:00 05/06/22 08:24 Midodrine 10 Mg Tab FEEDTUBE 20 mg TID CONNOR Administration Naloxone HCl 0.1 mg 04/19/22 09:55 Naloxone 0.4 Mg/1 Ml Inj IV Q2MIN PRN Res Rate </= 8 or 02 SAT < 92% Polyethylene Glycol 17 gm 05/03/22 10:00 05/06/22 09:32 Polyethylene Glycol 3350 17 Gm Powder FEEDTUBE 17 gm QDAY CONNOR Administration Risperidone 0.5 mg 04/25/22 11:00 05/06/22 09:34 Risperidone 1 Mg Tab FEEDTUBE 0.5 mg BID CONNOR Administration Scopolamine 1 each 05/02/22 10:00 05/05/22 09:45 Scopolamine Transdermal Patch 72 Hr TD 1 each Q3D CONNOR Administration Senna 17.2 mg 04/23/22 10:00 05/06/22 09:32 Sennosides 8.6 Mg Tab FEEDTUBE 17.2 mg BID CONNOR Administration Sodium Chloride 10 ml 04/19/22 12:00 05/06/22 09:33 Sodium Chloride 0.9% 10 Ml Flush Syringe IV 10 ml BID CONNOR Administration Sodium Chloride 10 ml 04/19/22 11:19 Sodium Chloride 0.9% 10 Ml Flush Syringe IV PRN PRN LINE FLUSH Sodium Phosphate 250 mg 05/06/22 10:00 05/06/22 09:53 K-Phos Neutral 250 Mg Tab FEEDTUBE 05/06/22 18:01 250 mg QID CONNOR Administration Valproic Acid 750 mg 04/22/22 22:00 05/06/22 09:32 Valproic Acid 250 Mg/5 Ml Oral Liqd FEEDTUBE 750 mg BID CONNOR Administration Nutrition/Malnutrition Assess - Dietary Evaluation Nutrition/Malnutrition Findings: Nutrition Notes Start: 04/19/22 17:39 Freq: Status: Active Protocol: Document 05/05/22 14:44 SHILA (Rec: 05/05/22 14:55 SHILA [id number]) Nutrition Notes Initial or Follow up Reassessment Current Diagnosis CKD (stage V CKD),Sepsis, Respiratory Failure Other Pertinent Diagnosis Neurogenic dysphagia, metabolic encephalopathy, vascular dementia Current Diet No diet order in chart Labs/Tests Na 130 K 3.3 BUN 24 Cr 2.3 BG 163 Phos 1.5 Pertinent Medications Colace, Senokot, Miralax, Levophed gtt, Vasopressin gtt Height 5 ft 2 in Weight 54.43 kg [place] Body Weight (kg) 50.00 BMI 21.9 Weight Status Appropriate Subjective/Other Information PEG placed yesterday. Pt remains on vent and HD support . Observed Nepro infusing at 30ml/hr. No BM documented today. Bronchoscopy performed today. Percent of energy/protein needs met: 104% energy 90% pro Burn Absent Trauma Absent #1 Nutrition Diagnosis Inadequate oral intake, Swallowing difficulty Diagnosis Progress(for reassessment Continues documentation) Is patient on ventilator? Yes Is Patient Ambulatory and/or Out of Bed No REE-([facility]-confined to bed) [phone] Calculation Used for Recommendations [facility] Additional Notes Pro needs >1.2g/kg: >65g/day Fluid needs 1-1.5L/day Nutrition Intervention Nutrition Support: Continue Nepro at 30ml/hr with 130ml water flush q4h. Kcal 1,296 Protein (gm) 58 Carbohydrates (gm) 116 Fat (gm) 69 Fluid (mL) 523 Fiber (gm) 9 Goal #1 TF tolerance Goal #2 TF to meet at least 75% energy and pro needs Follow-Up By: 05/12/22 Additional Comments F/U: stable TF, vent status, wt, BM <MELINDA BOWEN - Last Filed: 05/07/22 07:21> Assessment and Plan Assessment and plan: I saw and evaluated the patient. I agree with the findings and the plan of care as documented in the Nurse Practitioner's~note, with the following corrections and additions. Hospitalist Physical - Constitutional Vitals: Temp Pulse Resp BP Pulse Ox 98.3 F 106 H 18 134/66 97 05/07/22 07:19 05/07/22 06:30 05/07/22 06:30 05/07/22 06:30 05/07/22 06:30 HEART Score - HEART Score Troponin: Troponin T 0.415 ng/mL (0.00-0.029) H* 04/19/22 04:53 Results - Labs CBC & Chem 7: 05/07/22 04:15 05/07/22 04:15 Labs: Laboratory Last Values WBC 7.5 K/mm3 (4.5-11.0) 05/07/22 04:15 RBC 2.95 M/mm3 (3.65-5.03) L 05/07/22 04:15 Hgb 8.4 gm/dl (10.1-14.3) L 05/07/22 04:15 Hct 26.7 % (30.3-42.9) L 05/07/22 04:15 MCV 91 fl (79-97) 05/07/22 04:15 MCH 28 pg (28-32) 05/07/22 04:15 MCHC 31 % (30-34) 05/07/22 04:15 RDW 16.7 % (13.2-15.2) H 05/07/22 04:15 Plt Count 112 K/mm3 (140-440) L 05/07/22 04:15 Lymph % (Auto) 26.7 % (13.4-35.0) 04/20/22 05:30 Stoddard % (Auto) 15.2 % (0.0-7.3) H 04/20/22 05:30 Eos % (Auto) 3.8 % (0.0-4.3) 04/20/22 05:30 Baso % (Auto) 1.2 % (0.0-1.8) 04/20/22 05:30 Lymph # (Auto) 1.1 K/mm3 (1.2-5.4) L 04/20/22 05:30 Stoddard # (Auto) 0.6 K/mm3 (0.0-0.8) 04/20/22 05:30 Eos # (Auto) 0.2 K/mm3 (0.0-0.4) 04/20/22 05:30 Baso # (Auto) 0.0 K/mm3 (0.0-0.1) 04/20/22 05:30 Add Manual Diff Complete 05/05/22 04:20 Total Counted 100 05/05/22 04:20 Seg Neutrophils % 53.1 % (40.0-70.0) 04/20/22 05:30 Seg Neuts % (Manual) 86.0 % (40.0-70.0) H 05/05/22 04:20 Band Neutrophils % 3.0 % 05/05/22 04:20 Lymphocytes % (Manual) 4.0 % (13.4-35.0) L 05/05/22 04:20 Reactive Lymphs % (Man) 0 % 05/05/22 04:20 Monocytes % (Manual) 6.0 % (0.0-7.3) 05/05/22 04:20 Eosinophils % (Manual) 1.0 % (0.0-4.3) 05/05/22 04:20 Basophils % (Manual) 0 % (0.0-1.8) 05/05/22 04:20 Metamyelocytes % 0 % 05/05/22 04:20 Myelocytes % 0 % 05/05/22 04:20 Promyelocytes % 0 % 05/05/22 04:20 Blast Cells % 0 % 05/05/22 04:20 Nucleated RBC % 1.0 % (0.0-0.9) H 05/05/22 04:20 Seg Neutrophils # 2.2 K/mm3 (1.8-7.7) 04/20/22 05:30 Seg Neutrophils # Man 11.0 K/mm3 (1.8-7.7) H 05/05/22 04:20 Band Neutrophils # 0.4 K/mm3 05/05/22 04:20 Lymphocytes # (Manual) 0.5 K/mm3 (1.2-5.4) L 05/05/22 04:20 Abs React Lymphs (Man) 0.0 K/mm3 05/05/22 04:20 Monocytes # (Manual) 0.8 K/mm3 (0.0-0.8) 05/05/22 04:20 Eosinophils # (Manual) 0.1 K/mm3 (0.0-0.4) 05/05/22 04:20 Basophils # (Manual) 0.0 K/mm3 (0.0-0.1) 05/05/22 04:20 Metamyelocytes # 0.0 K/mm3 05/05/22 04:20 Myelocytes # 0.0 K/mm3 05/05/22 04:20 Promyelocytes # 0.0 K/mm3 05/05/22 04:20 Blast Cells # 0.0 K/mm3 05/05/22 04:20 WBC Morphology Not Reportable 05/05/22 04:20 Hypersegmented Neuts Not Reportable 05/05/22 04:20 Hyposegmented Neuts Not Reportable 05/05/22 04:20 Hypogranular Neuts Not Reportable 05/05/22 04:20 Smudge Cells Not Reportable 05/05/22 04:20 Toxic Granulation Not Reportable 05/05/22 04:20 Toxic Vacuolation Not Reportable 05/05/22 04:20 Dohle Bodies Not Reportable 05/05/22 04:20 Pelger-Huet Anomaly Not Reportable 05/05/22 04:20 Ubaldo Rods Not Reportable 05/05/22 04:20 Platelet Estimate Consistent w auto 05/05/22 04:20 Clumped Platelets Not Reportable 05/05/22 04:20 Plt Clumps, EDTA Not Reportable 05/05/22 04:20 Large Platelets Not Reportable 05/05/22 04:20 Giant Platelets Not Reportable 05/05/22 04:20 Platelet Satelliting Not Reportable 05/05/22 04:20 Plt Morphology Comment Not Reportable 05/05/22 04:20 RBC Morphology Not Reportable 05/05/22 04:20 Dimorphic RBCs Not Reportable 05/05/22 04:20 Polychromasia Not Reportable 05/05/22 04:20 Hypochromasia 2+ 05/05/22 04:20 Poikilocytosis Not Reportable 05/05/22 04:20 Anisocytosis 1+ 05/05/22 04:20 Microcytosis Not Reportable 05/05/22 04:20 Macrocytosis Not Reportable 05/05/22 04:20 Spherocytes Not Reportable 05/05/22 04:20 Pappenheimer Bodies Not Reportable 05/05/22 04:20 Sickle Cells Not Reportable 05/05/22 04:20 Target Cells Not Reportable 05/05/22 04:20 Tear Drop Cells Not Reportable 05/05/22 04:20 Ovalocytes Not Reportable 05/05/22 04:20 Helmet Cells Not Reportable 05/05/22 04:20 Rangel-Ramireno Bodies Not Reportable 05/05/22 04:20 [place] Rings Not Reportable 05/05/22 04:20 [place] Cells Not Reportable 05/05/22 04:20 Bite Cells Not Reportable 05/05/22 04:20 Crenated Cell Not Reportable 05/05/22 04:20 Elliptocytes Not Reportable 05/05/22 04:20 Acanthocytes (Spur) Not Reportable 05/05/22 04:20 Rouleaux Not Reportable 05/05/22 04:20 Hemoglobin C Crystals Not Reportable 05/05/22 04:20 Schistocytes Not Reportable 05/05/22 04:20 Malaria parasites Not Reportable 05/05/22 04:20 Torrey Bodies Not Reportable 05/05/22 04:20 Hem Pathologist Commnt No 05/05/22 04:20 PT 17.6 Sec. (12.2-14.9) H 05/04/22 04:26 INR 1.29 (0.87-1.13) H 05/04/22 04:26 APTT 39.4 Sec. (24.2-36.6) H 05/03/22 04:24 Heparin Anti-Xa Level < 0.10 U.I./ml (0.3-0.7) L 04/24/22 10:20 ABG pH 7.417 pH Units (7.350-7.450) 05/06/22 04:45 ABG pCO2 41.1 mm Hg 05/06/22 04:45 ABG pO2 112.7 mm Hg (80.0-90.0) H 05/06/22 04:45 ABG HCO3 25.9 mmol/L (20.0-26.0) 05/06/22 04:45 ABG O2 Saturation 98.1 % (95.0-99.0) 05/06/22 04:45 ABG O2 Content 10.8 (0.0-44) 05/06/22 04:45 ABG Base Excess 1.2 mmol/L (-2.0-3.0) 05/06/22 04:45 ABG Hemoglobin 7.8 gm/dl (12.0-16.0) L 05/06/22 04:45 ABG Carboxyhemoglobin 1.6 % (0.0-5.0) 05/06/22 04:45 ABG Methemoglobin 0.5 % (0.0-1.5) 05/06/22 04:45 Oxyhemoglobin 96.1 % (95.0-99.0) 05/06/22 04:45 FiO2 40 % 05/06/22 04:45 Sodium 131 mmol/L (137-145) L 05/07/22 04:15 Potassium 3.4 mmol/L (3.6-5.0) L 05/07/22 04:15 Chloride 95.3 mmol/L (98-107) L 05/07/22 04:15 Carbon Dioxide 28 mmol/L (22-30) 05/07/22 04:15 Anion Gap 11 mmol/L 05/07/22 04:15 BUN 28 mg/dL (7-17) H 05/07/22 04:15 Creatinine 2.5 mg/dL (0.6-1.2) H 05/07/22 04:15 Estimated GFR 23 ml/min 05/07/22 04:15 BUN/Creatinine Ratio 11 % 05/07/22 04:15 Glucose 140 mg/dL (65-100) H 05/07/22 04:15 POC Glucose 145 mg/dL (70-105) H 05/06/22 23:34 Lactic Acid 1.60 mmol/L (0.7-2.0) 04/19/22 07:14 Calcium 8.9 mg/dL (8.4-10.2) 05/07/22 04:15 Phosphorus 1.20 mg/dL (2.5-4.5) L 05/07/22 04:15 Magnesium 1.70 mg/dL (1.7-2.3) 05/07/22 04:15 Total Bilirubin 0.30 mg/dL (0.1-1.2) 04/20/22 05:30 AST 11 units/L (5-40) 04/20/22 05:30 ALT 7 units/L (7-56) 04/20/22 05:30 Alkaline Phosphatase 101 units/L (35-129) 04/20/22 05:30 Ammonia 25.0 umol/L (25-60) 04/19/22 04:53 Troponin T 0.415 ng/mL (0.00-0.029) H* 04/19/22 04:53 Total Protein 6.4 g/dL (6.3-8.2) 04/20/22 05:30 Albumin 2.4 g/dL (3.9-5) L 04/20/22 05:30 Albumin/Globulin Ratio 0.6 % 04/20/22 05:30 Procalcitonin 42.42 ng/mL (<0.15) 05/05/22 04:20 TSH 1.700 mlU/mL (0.270-4.200) 04/19/22 04:53 Free T4 0.28 ng/dL (0.76-1.46) L 04/19/22 04:53 Total Cortisol 24.4 mcg/dL () 04/27/22 04:45 Random Vancomycin 9.6 ug/mL (0-40.0) 05/07/22 04:15 Coronavirus (PCR) Negative (Negative) 05/03/22 11:30 Hepatitis A IgM Ab Non-reactive (NonReactive) 04/19/22 04:53 Hep Bs Antigen Non-reactive (Negative) 04/19/22 04:53 Hep B Core IgM Ab Non-reactive (NonReactive) 04/19/22 04:53 Hepatitis C Antibody Non-reactive (NonReactive) 04/19/22 04:53 Blood Type A POSITIVE 05/04/22 05:30 Antibody Screen Negative 05/04/22 05:30 Crossmatch See Detail 05/04/22 05:30 Microbiology: Microbiology 05/04/22 16:30 Peripheral/Venous Blood Culture - Preliminary 05/04/22 16:30 Peripheral/Venous Blood Culture - Preliminary NO GROWTH AFTER 48 HOURS Cleary/IV: Voiding Method Incontinent Active Medications - Current Medications Current Medications: Generic Name Dose Route Start Last Admin Trade Name Freq PRN Reason Stop Dose Admin Acetaminophen 650 mg 04/22/22 20:12 05/03/22 23:41 Acetaminophen 325 Mg/10.15 Ml Oral Liqd Unit Dose PO 650 mg Q6H PRN Administration Pain MILD(1-3)/Fever >100.5/DRAKE Acetylcysteine 200 mg 05/05/22 14:00 05/06/22 21:21 Acetylcysteine 20% 200 Mg/1 Ml *For Inhalation Use* INHALATION 05/10/22 13:59 200 mg TID CONNOR Administration Albumin Human 25 gm 04/21/22 13:00 04/22/22 16:31 Albumin Human 25% (25 Gm/100 Ml) Inj IV 25 gm BIANCA PRN Administration Hypotension Albuterol 2.5 mg 04/21/22 08:30 04/24/22 16:51 Albuterol 2.5 Mg/3 Ml Nebu IH 2.5 mg Q3HRT PRN Administration Shortness Of Breath Albuterol/Ipratropium 1 ampul 04/21/22 14:00 05/06/22 21:21 Ipratropium/Albuterol Sulfate 3 Ml Ampul.Neb IH 1 ampul TIDRT CONNOR Administration Docusate Sodium 100 mg 05/01/22 22:00 05/06/22 22:48 Docusate Sodium 100 Mg/10 Ml Oral Liqd FEEDTUBE 100 mg BID CONNOR Administration Epoetin Lb-epbx 20,000 unit 04/23/22 12:00 05/06/22 19:23 Epoetin Lb-Epbx 20,000 Unit/1 Ml Vial IV 20,000 unit BIANCA PRN Administration HEMODIALYSIS Fentanyl 50 mcg 05/03/22 10:29 05/05/22 12:23 Fentanyl 100 Mcg/2 Ml Inj IV 25 mcg Q10MIN PRN Administration ANALGESIA Sodium Chloride 100 mls @ 999 mls/hr 04/22/22 09:12 Nacl 0.9% IV BIANCA PRN Hypotension Fentanyl Citrate 2,000 mcg in 100 mls @ 2.722 mls/hr 05/03/22 11:00 Fentanyl Drip Premix IV TITR CONNOR Protocol 1 MCG/KG/HR NORepinephrine/NS 8 MG-250 ML 8 mg in 250 mls @ 3.75 mls/hr 05/03/22 13:15 05/06/22 10:06 Norepinephrine/Ns 8 Mg-250 Ml (Double Conc) IV 0 mcg/min TITRATE CONNOR 0 mls/hr Titration Protocol 2 MCG/MIN Vasopressin 20 unit/ Sodium 101 mls @ 9.09 mls/hr 05/04/22 00:30 05/06/22 11:21 Chloride IV 0 units/min TITR CONNOR 0 mls/hr Infusion 0.03 UNITS/MIN Cefepime HCl 1 gm in 100 mls @ 200 mls/hr 05/04/22 18:00 05/05/22 17:37 Cefepime/Ns 1 Gm/100 Ml IV 200 mls/hr QPM CONNOR Administration Protocol Lansoprazole 30 mg 04/23/22 10:00 05/06/22 09:32 Lansoprazole 30 Mg Solutab FEEDTUBE 30 mg QDAY CONNOR Administration Lorazepam 0.5 mg 04/25/22 09:59 Lorazepam 0.5 Mg Tab FEEDTUBE QDAY PRN Anxiety Memantine 5 mg 04/25/22 10:00 05/06/22 22:49 Memantine 5 Mg Tab FEEDTUBE 5 mg BID CONNOR Administration Metoclopramide HCl 5 mg 04/19/22 09:55 Metoclopramide 10 Mg/2 Ml Inj IV Q6H PRN Nausea And Vomiting Midodrine 20 mg 04/26/22 14:00 05/06/22 22:49 Midodrine 10 Mg Tab FEEDTUBE 20 mg TID CONNOR Administration Naloxone HCl 0.1 mg 04/19/22 09:55 Naloxone 0.4 Mg/1 Ml Inj IV Q2MIN PRN Res Rate </= 8 or 02 SAT < 92% Polyethylene Glycol 17 gm 05/03/22 10:00 05/06/22 09:32 Polyethylene Glycol 3350 17 Gm Powder FEEDTUBE 17 gm QDAY CONNOR Administration Risperidone 0.5 mg 04/25/22 11:00 05/06/22 22:48 Risperidone 1 Mg Tab FEEDTUBE 0.5 mg BID CONNOR Administration Scopolamine 1 each 05/02/22 10:00 05/05/22 09:45 Scopolamine Transdermal Patch 72 Hr TD 1 each Q3D CONNOR Administration Senna 17.2 mg 04/23/22 10:00 05/06/22 22:49 Sennosides 8.6 Mg Tab FEEDTUBE 17.2 mg BID CONNOR Administration Sodium Chloride 10 ml 04/19/22 12:00 05/06/22 09:33 Sodium Chloride 0.9% 10 Ml Flush Syringe IV 10 ml BID CONNOR Administration Sodium Chloride 10 ml 04/19/22 11:19 Sodium Chloride 0.9% 10 Ml Flush Syringe IV PRN PRN LINE FLUSH Valproic Acid 750 mg 04/22/22 22:00 05/06/22 22:49 Valproic Acid 250 Mg/5 Ml Oral Liqd FEEDTUBE 750 mg BID CONNOR Administration Nutrition/Malnutrition Assess - Dietary Evaluation Nutrition/Malnutrition Findings: Nutrition Notes Start: 04/19/22 17:39 Freq: Status: Active Protocol: Document 05/05/22 14:44 SHILA (Rec: 05/05/22 14:55 SHILA [id number]) Nutrition Notes Initial or Follow up Reassessment Current Diagnosis CKD (stage V CKD),Sepsis, Respiratory Failure Other Pertinent Diagnosis Neurogenic dysphagia, metabolic encephalopathy, vascular dementia Current Diet No diet order in chart Labs/Tests Na 130 K 3.3 BUN 24 Cr 2.3 BG 163 Phos 1.5 Pertinent Medications Colace, Senokot, Miralax, Levophed gtt, Vasopressin gtt Height 5 ft 2 in Weight 54.43 kg Card[place] Body Weight (kg) 50.00 BMI 21.9 Weight Status Appropriate Subjective/Other Information PEG placed yesterday. Pt remains on vent and HD support . Observed Nepro infusing at 30ml/hr. No BM documented today. Bronchoscopy performed today. Percent of energy/protein needs met: 104% energy 90% pro Burn Absent Trauma Absent #1 Nutrition Diagnosis Inadequate oral intake, Swallowing difficulty Diagnosis Progress(for reassessment Continues documentation) Is patient on ventilator? Yes Is Patient Ambulatory and/or Out of Bed No REE-([facility]-confined to bed) [phone] Calculation Used for Recommendations [facility] Additional Notes Pro needs >1.2g/kg: >65g/day Fluid needs 1-1.5L/day Nutrition Intervention Nutrition Support: Continue Nepro at 30ml/hr with 130ml water flush q4h. Kcal 1,296 Protein (gm) 58 Carbohydrates (gm) 116 Fat (gm) 69 Fluid (mL) 523 Fiber (gm) 9 Goal #1 TF tolerance Goal #2 TF to meet at least 75% energy and pro needs Follow-Up By: 05/12/22 Additional Comments F/U: stable TF, vent status, wt, BM
[2022-05-06] MEDS: CEFEPIME/NS 1 GM/100 ML 1 GM/100 ML BAG IV SCH (18:11)
[2022-05-06] MEDS: EPOETIN ALFA-EPBX 20,000 UNIT/1 ML VIAL IV PRN (19:23)
--- NOTE | 2022-05-06 22:23 | Progress Note ---
Assessment and Plan Impression: * End stage renal disease * Acute hypoxic respiratory failure * AMS * SVT s/p cardioversion * SIRS * NSTEMI * Shock * Anemia secondary to ESRD * Secondary hyperparathyroidism * IJ thrombus Plan: * Continue hemodialysis // provided patient is hemodynamically stable. * Assess daily for needs for additional sessions * Vasopressors prn to maintaina MAP > 65 * Dose medications for renal function * cardiology/pulmonary notes reviewed, appreciated * appreciate vascular regarding AVG * continue midodrine given soft BP * keep MAP>65, vasopressors prn * Avoid potential nephrotoxins * Epogen TIW prn * Renal/HD diet * Continue binders prn * Thank you for involving us in the care of this patient. We will follow along and make recommendation from renal standpoint. Patient is critically ill and prognosis is guarded. Subjective Date of service: 05/06/22 Principal diagnosis: Neurogenic dysphagia Interval history: Seen in ICU. Remains intubated. On vasopressors but with decreased dosing. Objective - Exam Narrative Exam: General: Sedated. Intubated. Head: NC/AT Eyes: normal appearance Neck: Normal appearance Chest: Intubated CV: Regular rate and rhythm, right arm dialysis access Abdomen: Soft, normal bowel sounds, nontender, nondistended Neuro: Sedated - Vital Signs Vital signs: Vital Signs - 12hr 05/06/22 05/06/22 05/06/22 10:30 10:45 11:00 Temperature Pulse Rate 79 64 65 Pulse Rate [ Anterior Bilateral Throughout] Pulse Rate [ Bilateral Dorsalis Pedis] Pulse Rate [ From Monitor] Respiratory 14 14 14 Rate Respiratory Rate [Anterior Bilateral Throughout] Blood Pressure 143/54 132/54 132/54 Blood Pressure [Left] O2 Sat by Pulse 100 100 100 Oximetry O2 Sat by Pulse Oximetry [ Anterior Bilateral Throughout] 05/06/22 05/06/22 05/06/22 11:15 11:30 11:45 Temperature Pulse Rate 64 70 85 Pulse Rate [ Anterior Bilateral Throughout] Pulse Rate [ Bilateral Dorsalis Pedis] Pulse Rate [ From Monitor] Respiratory 14 14 14 Rate Respiratory Rate [Anterior Bilateral Throughout] Blood Pressure 126/43 124/53 125/56 Blood Pressure [Left] O2 Sat by Pulse 100 100 100 Oximetry O2 Sat by Pulse Oximetry [ Anterior Bilateral Throughout] 05/06/22 05/06/22 05/06/22 12:00 12:15 12:30 Temperature 98 F Pulse Rate 94 H 99 H 101 H Pulse Rate [ Anterior Bilateral Throughout] Pulse Rate [ 94 H Bilateral Dorsalis Pedis] Pulse Rate [ 94 H From Monitor] Respiratory 18 15 13 Rate Respiratory Rate [Anterior Bilateral Throughout] Blood Pressure 114/60 115/62 132/73 Blood Pressure [Left] O2 Sat by Pulse 100 100 98 Oximetry O2 Sat by Pulse Oximetry [ Anterior Bilateral Throughout] 05/06/22 05/06/22 05/06/22 12:46 13:00 13:15 Temperature Pulse Rate 110 H 101 H 91 H Pulse Rate [ Anterior Bilateral Throughout] Pulse Rate [ Bilateral Dorsalis Pedis] Pulse Rate [ From Monitor] Respiratory 16 14 14 Rate Respiratory Rate [Anterior Bilateral Throughout] Blood Pressure 138/84 133/63 110/48 Blood Pressure [Left] O2 Sat by Pulse 98 98 99 Oximetry O2 Sat by Pulse Oximetry [ Anterior Bilateral Throughout] 05/06/22 05/06/22 05/06/22 13:30 13:45 14:00 Temperature Pulse Rate 86 90 86 Pulse Rate [ Anterior Bilateral Throughout] Pulse Rate [ Bilateral Dorsalis Pedis] Pulse Rate [ From Monitor] Respiratory 14 14 14 Rate Respiratory Rate [Anterior Bilateral Throughout] Blood Pressure 108/54 116/63 108/56 Blood Pressure [Left] O2 Sat by Pulse 99 98 99 Oximetry O2 Sat by Pulse Oximetry [ Anterior Bilateral Throughout] 05/06/22 05/06/22 05/06/22 14:15 14:30 14:43 Temperature Pulse Rate 85 79 Pulse Rate [ 84 Anterior Bilateral Throughout] Pulse Rate [ Bilateral Dorsalis Pedis] Pulse Rate [ From Monitor] Respiratory 14 14 Rate Respiratory 14 Rate [Anterior Bilateral Throughout] Blood Pressure 105/54 111/53 Blood Pressure [Left] O2 Sat by Pulse 100 100 Oximetry O2 Sat by Pulse Oximetry [ Anterior Bilateral Throughout] 05/06/22 05/06/22 05/06/22 15:00 15:15 15:30 Temperature Pulse Rate 87 84 87 Pulse Rate [ Anterior Bilateral Throughout] Pulse Rate [ Bilateral Dorsalis Pedis] Pulse Rate [ From Monitor] Respiratory 14 14 13 Rate Respiratory Rate [Anterior Bilateral Throughout] Blood Pressure Blood Pressure 123/60 114/56 111/53 [Left] O2 Sat by Pulse 100 100 100 Oximetry O2 Sat by Pulse Oximetry [ Anterior Bilateral Throughout] 05/06/22 05/06/22 05/06/22 15:45 16:00 16:15 Temperature 98.8 F Pulse Rate 84 86 90 Pulse Rate [ Anterior Bilateral Throughout] Pulse Rate [ 91 H Bilateral Dorsalis Pedis] Pulse Rate [ 91 H From Monitor] Respiratory 14 14 14 Rate Respiratory Rate [Anterior Bilateral Throughout] Blood Pressure 132/68 Blood Pressure 116/53 110/55 [Left] O2 Sat by Pulse 100 100 100 Oximetry O2 Sat by Pulse Oximetry [ Anterior Bilateral Throughout] 05/06/22 05/06/22 05/06/22 16:30 16:40 16:45 Temperature Pulse Rate 90 91 H 88 Pulse Rate [ Anterior Bilateral Throughout] Pulse Rate [ Bilateral Dorsalis Pedis] Pulse Rate [ From Monitor] Respiratory 13 14 13 Rate Respiratory Rate [Anterior Bilateral Throughout] Blood Pressure 111/53 Blood Pressure 119/56 105/55 [Left] O2 Sat by Pulse 100 100 100 Oximetry O2 Sat by Pulse Oximetry [ Anterior Bilateral Throughout] 05/06/22 05/06/22 05/06/22 17:00 17:15 17:30 Temperature Pulse Rate 85 88 87 Pulse Rate [ Anterior Bilateral Throughout] Pulse Rate [ Bilateral Dorsalis Pedis] Pulse Rate [ From Monitor] Respiratory 14 14 13 Rate Respiratory Rate [Anterior Bilateral Throughout] Blood Pressure Blood Pressure 115/55 113/60 110/56 [Left] O2 Sat by Pulse 100 100 100 Oximetry O2 Sat by Pulse Oximetry [ Anterior Bilateral Throughout] 05/06/22 05/06/22 05/06/22 17:45 18:00 18:15 Temperature 97.8 F Pulse Rate 89 103 H 95 H Pulse Rate [ Anterior Bilateral Throughout] Pulse Rate [ Bilateral Dorsalis Pedis] Pulse Rate [ From Monitor] Respiratory 20 14 Rate Respiratory Rate [Anterior Bilateral Throughout] Blood Pressure 119/55 132/69 132/70 Blood Pressure 119/55 132/69 [Left] O2 Sat by Pulse 100 98 Oximetry O2 Sat by Pulse 99 Oximetry [ Anterior Bilateral Throughout] 05/06/22 05/06/22 05/06/22 18:30 18:45 19:00 Temperature Pulse Rate 105 H 108 H 99 H Pulse Rate [ Anterior Bilateral Throughout] Pulse Rate [ Bilateral Dorsalis Pedis] Pulse Rate [ From Monitor] Respiratory Rate Respiratory Rate [Anterior Bilateral Throughout] Blood Pressure 139/95 150/75 127/69 Blood Pressure [Left] O2 Sat by Pulse Oximetry O2 Sat by Pulse Oximetry [ Anterior Bilateral Throughout] 05/06/22 05/06/22 05/06/22 19:15 19:30 19:45 Temperature Pulse Rate 106 H 99 H 95 H Pulse Rate [ Anterior Bilateral Throughout] Pulse Rate [ Bilateral Dorsalis Pedis] Pulse Rate [ From Monitor] Respiratory Rate Respiratory Rate [Anterior Bilateral Throughout] Blood Pressure 120/64 120/69 128/59 Blood Pressure [Left] O2 Sat by Pulse Oximetry O2 Sat by Pulse Oximetry [ Anterior Bilateral Throughout] 05/06/22 05/06/22 05/06/22 20:00 20:15 20:30 Temperature Pulse Rate 97 H 99 H 100 H Pulse Rate [ 96 H Anterior Bilateral Throughout] Pulse Rate [ Bilateral Dorsalis Pedis] Pulse Rate [ From Monitor] Respiratory Rate Respiratory 14 Rate [Anterior Bilateral Throughout] Blood Pressure 127/61 115/66 127/70 Blood Pressure [Left] O2 Sat by Pulse 96 Oximetry O2 Sat by Pulse Oximetry [ Anterior Bilateral Throughout] 05/06/22 05/06/22 20:45 20:50 Temperature 98.8 F Pulse Rate 94 H 94 H Pulse Rate [ Anterior Bilateral Throughout] Pulse Rate [ Bilateral Dorsalis Pedis] Pulse Rate [ From Monitor] Respiratory 15 Rate Respiratory Rate [Anterior Bilateral Throughout] Blood Pressure 135/58 140/62 Blood Pressure [Left] O2 Sat by Pulse Oximetry O2 Sat by Pulse 100 Oximetry [ Anterior Bilateral Throughout] - Lab 05/06/22 05:02 05/06/22 05:02 Most recent lab results ABG pH 7.417 pH Units (7.350-7.450) 05/06/22 04:45 ABG pCO2 41.1 mm Hg 05/06/22 04:45 ABG pO2 112.7 mm Hg (80.0-90.0) H 05/06/22 04:45 ABG HCO3 25.9 mmol/L (20.0-26.0) 05/06/22 04:45 ABG O2 Saturation 98.1 % (95.0-99.0) 05/06/22 04:45 Calcium 9.1 mg/dL (8.4-10.2) 05/06/22 05:02 Phosphorus 1.50 mg/dL (2.5-4.5) L 05/06/22 05:02 Magnesium 1.90 mg/dL (1.7-2.3) 05/06/22 05:02 Medications & Allergies - Medications Allergies/Adverse Reactions: Allergies buspirone [From BuSpar] Allergy (Verified 04/18/22 12:22) Unknown Penicillins Allergy (Verified 04/18/22 12:22) Rash corn Adverse Reaction (Verified 04/18/22 12:22) Unknown Home Medications: Home Medications Medication Instructions Recorded Confirmed Last Taken Type Sevelamer Carbonate [Renvela] 0.8 gram PO TIDWM 09/02/20 02/02/22 05/31/21 History HYDROcodone/APAP 5-325 [[place] 1 each PO Q4HR PRN #30 tablet 05/18/21 02/02/22 Unknown Rx 5-325 mg TAB] ALBUTEROL NEB's [Proventil 0.083% 2.5 mg IH Q3HRT PRN #1 nebu 03/03/22 Unknown Rx NEBS] Clopidogrel [Plavix] 75 mg PO QDAY #90 tablet 03/03/[address] [Depamanda Dr] 750 mg PO BID #60 tablet 03/03/22 Unknown Rx LORazepam [Ativan] 1 mg PO DAILY #30 tab 03/03/22 Unknown Rx Memantine Xr [Namenda Xr] 5 mg PO DAILY #30 cap 03/03/22 Unknown Rx Midodrine [Proamatine] 10 mg PO TID #90 tab 03/03/22 Unknown Rx Pantoprazole [Protonix TAB] 40 mg PO DAILY #30 tab 03/03/22 Unknown Rx QUEtiapine [SEROquel] 400 mg PO BID #60 tab 03/03/22 Unknown Rx risperiDONE [RisperDAL] 0.5 mg PO BID #60 tab 03/03/22 Unknown Rx Active Medications: Generic Name Dose Route Start Last Admin Trade Name Freq PRN Reason Stop Dose Admin Acetaminophen 650 mg 04/22/22 20:12 05/03/22 23:41 Acetaminophen 325 Mg/10.15 Ml Oral Liqd Unit Dose PO 650 mg Q6H PRN Administration Pain MILD(1-3)/Fever >100.5/DRAKE Acetylcysteine 200 mg 05/05/22 14:00 05/06/22 21:21 Acetylcysteine 20% 200 Mg/1 Ml *For Inhalation Use* INHALATION 05/10/22 13:59 200 mg TID CONNOR Administration Albumin Human 25 gm 04/21/22 13:00 04/22/22 16:31 Albumin Human 25% (25 Gm/100 Ml) Inj IV 25 gm BIANCA PRN Administration Hypotension Albuterol 2.5 mg 04/21/22 08:30 04/24/22 16:51 Albuterol 2.5 Mg/3 Ml Nebu IH 2.5 mg Q3HRT PRN Administration Shortness Of Breath Albuterol/Ipratropium 1 ampul 04/21/22 14:00 05/06/22 21:21 Ipratropium/Albuterol Sulfate 3 Ml Ampul.Neb IH 1 ampul TIDRT CONNOR Administration Docusate Sodium 100 mg 05/01/22 22:00 05/06/22 09:33 Docusate Sodium 100 Mg/10 Ml Oral Liqd FEEDTUBE 100 mg BID CONNOR Administration Epoetin Lb-epbx 20,000 unit 04/23/22 12:00 05/06/22 19:23 Epoetin Lb-Epbx 20,000 Unit/1 Ml Vial IV 20,000 unit BIANCA PRN Administration HEMODIALYSIS Fentanyl 50 mcg 05/03/22 10:29 05/05/22 12:23 Fentanyl 100 Mcg/2 Ml Inj IV 25 mcg Q10MIN PRN Administration ANALGESIA Sodium Chloride 100 mls @ 999 mls/hr 04/22/22 09:12 Nacl 0.9% IV BIANCA PRN Hypotension Fentanyl Citrate 2,000 mcg in 100 mls @ 2.722 mls/hr 05/03/22 11:00 Fentanyl Drip Premix IV TITR CONNOR Protocol 1 MCG/KG/HR NORepinephrine/NS 8 MG-250 ML 8 mg in 250 mls @ 3.75 mls/hr 05/03/22 13:15 05/06/22 10:06 Norepinephrine/Ns 8 Mg-250 Ml (Double Conc) IV 0 mcg/min TITRATE CONNOR 0 mls/hr Titration Protocol 2 MCG/MIN Vasopressin 20 unit/ Sodium 101 mls @ 9.09 mls/hr 05/04/22 00:30 05/06/22 11:21 Chloride IV 0 units/min TITR CONNOR 0 mls/hr Infusion 0.03 UNITS/MIN Cefepime HCl 1 gm in 100 mls @ 200 mls/hr 05/04/22 18:00 05/05/22 17:37 Cefepime/Ns 1 Gm/100 Ml IV 200 mls/hr QPM CONNOR Administration Protocol Lansoprazole 30 mg 04/23/22 10:00 05/06/22 09:32 Lansoprazole 30 Mg Solutab FEEDTUBE 30 mg QDAY CONNOR Administration Lorazepam 0.5 mg 04/25/22 09:59 Lorazepam 0.5 Mg Tab FEEDTUBE QDAY PRN Anxiety Memantine 5 mg 04/25/22 10:00 05/06/22 09:33 Memantine 5 Mg Tab FEEDTUBE 5 mg BID CONNOR Administration Metoclopramide HCl 5 mg 04/19/22 09:55 Metoclopramide 10 Mg/2 Ml Inj IV Q6H PRN Nausea And Vomiting Midodrine 20 mg 04/26/22 14:00 05/06/22 13:10 Midodrine 10 Mg Tab FEEDTUBE 20 mg TID CONNOR Administration Naloxone HCl 0.1 mg 04/19/22 09:55 Naloxone 0.4 Mg/1 Ml Inj IV Q2MIN PRN Res Rate </= 8 or 02 SAT < 92% Polyethylene Glycol 17 gm 05/03/22 10:00 05/06/22 09:32 Polyethylene Glycol 3350 17 Gm Powder FEEDTUBE 17 gm QDAY CONNOR Administration Risperidone 0.5 mg 04/25/22 11:00 05/06/22 09:34 Risperidone 1 Mg Tab FEEDTUBE 0.5 mg BID CONNOR Administration Scopolamine 1 each 05/02/22 10:00 05/05/22 09:45 Scopolamine Transdermal Patch 72 Hr TD 1 each Q3D CONNOR Administration Senna 17.2 mg 04/23/22 10:00 05/06/22 09:32 Sennosides 8.6 Mg Tab FEEDTUBE 17.2 mg BID CONNOR Administration Sodium Chloride 10 ml 04/19/22 12:00 05/06/22 09:33 Sodium Chloride 0.9% 10 Ml Flush Syringe IV 10 ml BID CONNOR Administration Sodium Chloride 10 ml 04/19/22 11:19 Sodium Chloride 0.9% 10 Ml Flush Syringe IV PRN PRN LINE FLUSH Valproic Acid 750 mg 04/22/22 22:00 05/06/22 09:32 Valproic Acid 250 Mg/5 Ml Oral Liqd FEEDTUBE 750 mg BID CONNOR Administration
--- NOTE | 2022-05-07 03:12 | XRay Report ---
CHEST 1 VIEW INDICATION / CLINICAL INFORMATION: follow up respiratory failure. COMPARISON: Chest x-ray 05/06/2022 FINDINGS: SUPPORT DEVICES: Endotracheal tube is in satisfactory position. HEART / MEDIASTINUM: Stable interval appearance of the cardiomediastinal silhouette. LUNGS / PLEURA: Bilateral lung opacities demonstrate no significant interval change. Small dependent bilateral pleural effusions appear stable. BONES: No significant osseous abnormality. ADDITIONAL FINDINGS: No significant additional findings. IMPRESSION: 1. Stable positioning of endotracheal tube. No adverse interval change in bilateral lower lung opacit ies or small dependent pleural effusions. Signer Name: Darshan Mancilla II, MD Signed: 05/07/2022 3:07 AM Workstation Name: [id number]
[2022-05-07 05:13] LABS: Hematocrit 26.7 % (30.3-42.9); Hemoglobin 8.4 gm/dl (10.1-14.3); Mean Corpuscular HGB Conc 31 % (30-34); Mean Corpuscular Volume 91 fl (79-97); Platelet Count 112 K/mm3 (140-440); Red Blood Count 2.95 M/mm3 (3.65-5.03); Red Cell Distribution Width 16.7 % (13.2-15.2)
[2022-05-07 06:06] LABS: Calcium 8.9 mg/dL (8.4-10.2)
[2022-05-07] MEDS: MIDODRINE 10 MG TAB FEEDTUBE SCH ×5 (08:11→21:03)
[2022-05-07] MEDS: ACETYLCYSTEINE 20% 200 MG/1 ML *FOR INHALATION USE INHALATION SCH ×3 (08:14→20:56)
[2022-05-07] MEDS: IPRATROPIUM/ALBUTEROL SULFATE 3 ML AMPUL.NEB IH SCH ×3 (08:14→20:56)
[2022-05-07] MEDS ORDERED: POTASSIUM CHLORIDE 20 MEQ PACKET FEEDTUBE ONE (09:00)
[2022-05-07] MEDS: risperiDONE 1 MG TAB FEEDTUBE SCH ×2 (09:43→21:05)
[2022-05-07] MEDS: LANSOPRAZOLE 30 MG SOLUTAB FEEDTUBE SCH (09:43)
[2022-05-07] MEDS: DOCUSATE SODIUM 100 MG/10 ML ORAL LIQD FEEDTUBE SCH ×2 (09:43→21:01)
[2022-05-07] MEDS: K-PHOS NEUTRAL 250 MG TAB PO SCH ×4 (09:43→21:04)
[2022-05-07] MEDS: VALPROIC ACID 250 MG/5 ML ORAL LIQD FEEDTUBE SCH ×2 (09:43→21:04)
[2022-05-07] MEDS: POLYETHYLENE GLYCOL 3350 17 GM POWDER FEEDTUBE SCH (09:43)
[2022-05-07] MEDS: SENNOSIDES 8.6 MG TAB FEEDTUBE SCH ×2 (09:43→21:01)
--- NOTE | 2022-05-07 09:52 | Progress Note ---
<COLLETTE HANNA - Last Filed: 05/07/22 16:09> Assessment and Plan Assessment and plan: This is a 66-year-old female with known past medical history of HTN, GERD, Seizure disorder, vascular dementia, ESRD on HD(TTS), OA, bipolar disorder, schizophrenia, anxiety disorder, and limited mobility admitted for Acute hypxic respiratory, hypotension, and SVT s/p X2 doses adenosine and cardioversion. Hospital Course to Date: 04/20: Patient went into Afib with RVR overnight, now on amiodarone gtt per yan cuello. Patient remains in AFib with RVR this am, HR in the 120-140s. BP marginal on Levophed gtt, currently not a candidate for BB. Midodrine increased to 15mg TID. 2D Echo pending. On heparin gtt per protocol. No HD today per nephro due to hypotension and tachycardia. 04/21: Converted to SR this am, remains on Amiodarone and heparin. Awaiting cardio final recommendations. Still on Levophed gtt for low BP, given patient history of chronic hypotension, Wean pressor for MAP goal of 60s. Patient is pocketing foods, currently NPO, awaiting speech eval and treat. 04/22: Patient passed speech swallow eval yesterday, however, patient is refusing PO intakes including meds. Will insert DHT for nutrition and meds administration. Patient remains in SR this am, amiodaron gtt transitioned to PO per cardio. Patient remains on heparin and Levophed gtt. Patient has not received PO midrodrine for 24hrs, resume meds once DHT is inserted. Keep femoral CVC for another 24hrs, anticipating will be able to wean off pressor once patient receive midodrine. Will reassess in the morning. No HD overnight, unable to cannulate AVF, plan to attempt again today per Nephro. Possible IR/Vascular surgery consult if unsuccessful again today. 04/23: Mentation a lot better this am. DHT was inserted, meds resumed and TF initiated. Levophed gtt increased overnight due to worsen hypotension, suspected it is due to sedative agents. Seroquel decreased to 200mg BID and scheduled ativan switched to PRN. Continue midodrine TID and wean off levophed gtt for MAP goal of 60. Patient tolerated HD yesterday, continue iHD per Nephrology. CCM recommendations noted, Chest US ordered for pleural effusion. 04/24: RN instructed to wean Levophed off, goal MAP of 60. Heparin drip stopped due to decreasing hemoglobin. 04/25: had cleared the patient for pured diet which will be started today, hemodialysis planned for today, patient was to be anemic and will receive 1 unit PRBC with HD. We will increase midodrine to 20 mg 3 times daily if patient becomes hypotensive during dialysis. Per CCM. Decrease in seroqoul but will increase if needed 04/26: Patient agreeable to PEG, GI consulted for placement. Femoral line removed 04/27: No acute events reported overnight, patient has been cardiac cleared for PEG tube placement. Possible PEG in the a.m. This afternoon attempted to place IJ CVL which was unsuccessful and Dr. Mcguire ultimately placed femoral CVL for the initiation of Levophed. HD scheduled for today. 04/28: Patient initially started on Levophed yesterday and she received a femoral CVL. 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 Vascular surgery was consulted. Patient also noted to be anemic and received 1 unit PRBC today. 04/29: Possible hemodialysis today, patient was able to be weaned off of Levophed today. Hemoglobin responded well to 1 unit PRBC. Awaiting trach/PEG placement. Patient will not need to be started on heparin drip per vascular surgery. No acute events reported overnight. 04/30: HD yesterday without removal of fluids, patient needs NT suctioning. Updated son today. 05/01: Patient with increase mucous production and is unable to fully clear her airway, Rhonchi auscultated throughout her lungs this am. SPO2 at 90 to 94% on 3L NC. D/W CCM, patient is high risk for aspiration will placed patient on heated HF at 40L for now instead of Bipap. Nasal bleeding also noted, mostly due to NT suctioning. Refrain from NT suctioning for now due to bleeding, only oral suctioning. PO seroquel held this amP atient is AAO, appropriate, and following commands. Levophed gtt weaned off, patient remains hemodynamically stable. Will discuss Nephro for possible fluid removal tonight or early tomorrow. Very low threshold for intubation. Patient's condition and plan of care, including possible intubation, thoroughly discussed with patient's son-Raymundo Randolph at . Patient's son verbalized understanding of the info provided and agreed with intubation if necessary. 05/02: Remains on HHFL at 40% and 40L, mentation is unchanged. HD at the bedside, plan for possible UF with fluid removal today. Continue O2 supplementation and wean as tolerated, for SPO2 above 92%. Repeat CXR in the am. Patient vital signs remains stable, still off pressors. Plan for possible PEG-tube placement by GI tomorrow, NPO after MN. Possible fistulogram for RIJ thrombus on or sunday per Vascular Surgery. 05/03: Complete white-out of right side from this am CXR, probable mucus plug. S/p intubation and bronch at the bedside by [facility]. Patient remains sedated and required short duration of Levophed gtt during the procedure. Pressor was wean off, VSS. Plan for CPT and mucomyst Q12hrs. Repeat CXR in the am. PEG-Tube placement postpone for possibly tomorrow if patient remains stable. Possible fistulogram for RIJ thrombus on or Sunday per Vascular Surgery. 05/04: Remains on the vent, easily arousable. High fevers overnight with spike in leukocytosis, now on [address] [facility] d/w ID, recommendations to repeat blood cultures and empiric IV abx- Cefepine and Vanco. low H&H this am, no s/s of any active bleeding, 1units of PRBCs during iHD today. S/p PEG-tube placement at this bedside this am by , no complications noted. Resume TF once clear by GI. 05/05: Remains on low vent setting. This am CXR with increase opacities on the right side again today, s/p therapeutic bronch at the bedside today by [facility]. Repeat CXR in the am. Remains with low grade fevers and on 2 pressors. Bronchial wash with Staph A. and blood cultures pending. Continue current IV Abx per ID. 05/06: Stable on the vent this am. Only on low dose pressors, MAP above 65. CXR with some improvement, peep dropped to 8 per CCM. Continue CPT and Mucomyst TID. If patient remains stable overnight, possible PSV trial in the am. Fevers and leukocytosis improved. Continue current IV Abx per ID. Continue iHD per Nephro 05/07: Remains stable on the vent, afebrile and off pressors this am VSS. This am CXR reviewed, increased opacities on the right side. Patient remains on low vent settings. Further management per CCM, continue CPT and Mucomyst TID. Bronch wash with MRSA, blood cultures pending. Continue current IV Abx per ID. Assessement and Plan #Atrial Fibrillation with RVR #Supraventricular Tachycardia s/p Cardioversion #Acute on Chronic Hypotension #NSTEMI Type 2 - Presented with AMS, Tachycardia, and hypotension requiring pressors - was found in SVT in the ED s/p unsuccessful X2 doses of adenosine then cardioversion. - Patient initially converted to SR post cardioversion, then went into afib RVR in the ICU - Elevated troponin most likely related to ESRD - Cardiology consulted, appreciate recommendations - s/p Amio gtt now on PO per Cardio. Patient remains in SR - On 2 pressors this am, with fevers and leukocytosis - Continue Midodrine TID - Continue blood pressure monitor per protocol - Titrate pressors for MAP goal of 60 - Not a candidate for MARGOTH, ARB, and BB due to hypotension - 2D Echo EF 60-65% - on Lipitor and Plavix - CCM also following #Septic Shock #Bilateral Pneumonia - With fevers, worsen leukocytosis, and now on 2 pressors - Imaging with bilateral opacities, Rt>Lt - Bronch wash with MRSA, blood cultures pending - ID consulted, appreciated recommendation - Continue empiric IV Abx- Cefepine and Vanco - F/U on cultures - Daily CBC monitor #Acute Hypoxic Respiratory Failure #Moderate Pleural Effusion - with worsening respiratory status this am - Complete white-out of right side from this am CXR, probable mucus plug - 05/01 s/p Intubation and bronch at the bedside by [facility] - This am CXR with increase opacities on the right side again today - 05/05 s/p therapeutic bronch at the bedside today by [facility] - Vent setting: PRVC-30%,6,14,450 - This am ABG noted - CCM consulted, appreciate recommendations - Plan for CPT at least 4 to 6 times a day, and Mucomyst TID - VAP bundle addressed - Aspiration precaution HOB above 30 - Daily SBT and SAT trials as tolerated - Daily ABG and CXR - Continue SPO2 monitoring for SPO2 goal above 92% #Acute Metabolic Encephalopathy #H/o Vascular Dementia #Severe Anxiety #Bipolar Disorder & Schizophrenia - Presented with AMS, probably due to above - s/p intubation, arousable, not on any sedations - No continue sedation gtt warranted at this time - Continue home meds - PRN Analgesia for pain control/vent synchrony - Maintenance of sleep-wake cycle - Mental Health/Psych on consult #End-Stage Renal Disease(ESRD) on HD - Nephrology on consult, appreciated recommendations - Continue iHD per Nephro - Strict intake and output - Avoid nephrotoxic medications; Renally dose medications - Monitor and replace electrolytes as needed #Anemia of Chronic Disease #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 Plan for possible vascular intervention sometimes this week - AC on hold due to worsen anemia #H/o Seizure Disorder - Resume home meds #Dysphagia #Moderate Protein Caloric Malnutrition - Failed speech swallow- they recommended PEG-Tube - GI consulted, appreciate recommendation - 05/04 s/p PEG-tube placement at this bedside this am by GI - Resume TF once cleared by GI - Nutrition consulted #GI/DVT Prophylaxis - PPI- Protonix - SCDs to bilateral lower extremities while in bed #Advance Care Planning - Disease education data, care plan, diagnoses, and prognosis were discussed with patient's son at the bedside. Patient is a FULL code. Patient acknowledged understanding and agreed with current care plan. The high probability of a clinically significant, sudden or life threatening deterioration of the [multiple] system(s) required my full and direct attention, intervention and personal management. The aggregate critical care time was [60] minutes. This time is in addition to time spent performing reported procedures but includes the following: [x] Data Review and interpretation [x] Patient assessment and monitoring of vital signs [x] Documentation [x] Medication orders and management Disposition Plan: ICU Total Time Spent with Patient (Minutes): 60 History Interval history: Patient seen and examined at the bedside. Remains stable on the vent. Awake and alert, following simple commands. Not on any sedation. off pressors this am. GUERRERO overnight Hospitalist Physical - Physical exam Narrative exam: General appearance: Present: No acute distress, well-nourished, obese, Other (Intubated, not on any sedation) - EENT Eyes: Present: PERRL ENT: hearing intact, poor dentition - Neck Neck: Present: normal ROM - Respiratory Respiratory effort: normal Respiratory: bilateral: diminished - Cardiovascular Rhythm: irregularly irregular Heart Sounds: Present: S1 & S2 - Extremities Extremities: no ischemia, pulses intact, pulses symmetrical Extremity abnormal: edema - Peripheral Assessment Generalized Edema Type: pitting Edema Degree: 2+ Capillary Refill: < 3 seconds Skin Temperature: Warm Peripheral Pulses: within normal limits Right Upper Extremity Edema Type: pitting Edema Degree: 3+ Capillary Refill: < 3 seconds Skin Temperature: Warm Peripheral Pulses: within normal limits - Abdominal General gastrointestinal: soft, non-distended, normal bowel sounds - Integumentary Integumentary: Present: warm, dry - Psychiatric Psychiatric: appropriate mood/affect, cooperative, other (Intubated, not on any sedation. Awake and alert, following commands) - Neurologic Neurologic: moves all extremities, other (Intubated, not on any sedation. Awake and alert, following commands) - Allied Health Allied health notes reviewed: nursing, case management - Constitutional Vitals: Temp Pulse Resp BP Pulse Ox 100.1 F H 114 H 17 161/83 93 05/07/22 08:00 05/07/22 08:15 05/07/22 08:15 05/07/22 08:15 05/07/22 08:15 HEART Score - HEART Score Troponin: Troponin T 0.415 ng/mL (0.00-0.029) H* 04/19/22 04:53 Results - Labs CBC & Chem 7: 05/07/22 04:15 05/07/22 04:15 Labs: Laboratory Last Values WBC 7.5 K/mm3 (4.5-11.0) 05/07/22 04:15 RBC 2.95 M/mm3 (3.65-5.03) L 05/07/22 04:15 Hgb 8.4 gm/dl (10.1-14.3) L 05/07/22 04:15 Hct 26.7 % (30.3-42.9) L 05/07/22 04:15 MCV 91 fl (79-97) 05/07/22 04:15 MCH 28 pg (28-32) 05/07/22 04:15 MCHC 31 % (30-34) 05/07/22 04:15 RDW 16.7 % (13.2-15.2) H 05/07/22 04:15 Plt Count 112 K/mm3 (140-440) L 05/07/22 04:15 Lymph % (Auto) 26.7 % (13.4-35.0) 04/20/22 05:30 [place] % (Auto) 15.2 % (0.0-7.3) H 04/20/22 05:30 Eos % (Auto) 3.8 % (0.0-4.3) 04/20/22 05:30 Baso % (Auto) 1.2 % (0.0-1.8) 04/20/22 05:30 Lymph # (Auto) 1.1 K/mm3 (1.2-5.4) L 04/20/22 05:30 [place] # (Auto) 0.6 K/mm3 (0.0-0.8) 04/20/22 05:30 Eos # (Auto) 0.2 K/mm3 (0.0-0.4) 04/20/22 05:30 Baso # (Auto) 0.0 K/mm3 (0.0-0.1) 04/20/22 05:30 Add Manual Diff Complete 05/05/22 04:20 Total Counted 100 05/05/22 04:20 Seg Neutrophils % 53.1 % (40.0-70.0) 04/20/22 05:30 Seg Neuts % (Manual) 86.0 % (40.0-70.0) H 05/05/22 04:20 Band Neutrophils % 3.0 % 05/05/22 04:20 Lymphocytes % (Manual) 4.0 % (13.4-35.0) L 05/05/22 04:20 Reactive Lymphs % (Man) 0 % 05/05/22 04:20 Monocytes % (Manual) 6.0 % (0.0-7.3) 05/05/22 04:20 Eosinophils % (Manual) 1.0 % (0.0-4.3) 05/05/22 04:20 Basophils % (Manual) 0 % (0.0-1.8) 05/05/22 04:20 Metamyelocytes % 0 % 05/05/22 04:20 Myelocytes % 0 % 05/05/22 04:20 Promyelocytes % 0 % 05/05/22 04:20 Blast Cells % 0 % 05/05/22 04:20 Nucleated RBC % 1.0 % (0.0-0.9) H 05/05/22 04:20 Seg Neutrophils # 2.2 K/mm3 (1.8-7.7) 04/20/22 05:30 Seg Neutrophils # Man 11.0 K/mm3 (1.8-7.7) H 05/05/22 04:20 Band Neutrophils # 0.4 K/mm3 05/05/22 04:20 Lymphocytes # (Manual) 0.5 K/mm3 (1.2-5.4) L 05/05/22 04:20 Abs React Lymphs (Man) 0.0 K/mm3 05/05/22 04:20 Monocytes # (Manual) 0.8 K/mm3 (0.0-0.8) 05/05/22 04:20 Eosinophils # (Manual) 0.1 K/mm3 (0.0-0.4) 05/05/22 04:20 Basophils # (Manual) 0.0 K/mm3 (0.0-0.1) 05/05/22 04:20 Metamyelocytes # 0.0 K/mm3 05/05/22 04:20 Myelocytes # 0.0 K/mm3 05/05/22 04:20 Promyelocytes # 0.0 K/mm3 05/05/22 04:20 Blast Cells # 0.0 K/mm3 05/05/22 04:20 WBC Morphology Not Reportable 05/05/22 04:20 Hypersegmented Neuts Not Reportable 05/05/22 04:20 Hyposegmented Neuts Not Reportable 05/05/22 04:20 Hypogranular Neuts Not Reportable 05/05/22 04:20 Smudge Cells Not Reportable 05/05/22 04:20 Toxic Granulation Not Reportable 05/05/22 04:20 Toxic Vacuolation Not Reportable 05/05/22 04:20 Dohle Bodies Not Reportable 05/05/22 04:20 Pelger-Huet Anomaly Not Reportable 05/05/22 04:20 Ubaldo Rods Not Reportable 05/05/22 04:20 Platelet Estimate Consistent w auto 05/05/22 04:20 Clumped Platelets Not Reportable 05/05/22 04:20 Plt Clumps, EDTA Not Reportable 05/05/22 04:20 Large Platelets Not Reportable 05/05/22 04:20 Giant Platelets Not Reportable 05/05/22 04:20 Platelet Satelliting Not Reportable 05/05/22 04:20 Plt Morphology Comment Not Reportable 05/05/22 04:20 RBC Morphology Not Reportable 05/05/22 04:20 Dimorphic RBCs Not Reportable 05/05/22 04:20 Polychromasia Not Reportable 05/05/22 04:20 Hypochromasia 2+ 05/05/22 04:20 Poikilocytosis Not Reportable 05/05/22 04:20 Anisocytosis 1+ 05/05/22 04:20 Microcytosis Not Reportable 05/05/22 04:20 Macrocytosis Not Reportable 05/05/22 04:20 Spherocytes Not Reportable 05/05/22 04:20 Pappenheimer Bodies Not Reportable 05/05/22 04:20 Sickle Cells Not Reportable 05/05/22 04:20 Target Cells Not Reportable 05/05/22 04:20 Tear Drop Cells Not Reportable 05/05/22 04:20 Ovalocytes Not Reportable 05/05/22 04:20 Helmet Cells Not Reportable 05/05/22 04:20 Rangel-[place] Bodies Not Reportable 05/05/22 04:20 [place] Rings Not Reportable 05/05/22 04:20 [place] Cells Not Reportable 05/05/22 04:20 Bite Cells Not Reportable 05/05/22 04:20 Crenated Cell Not Reportable 05/05/22 04:20 Elliptocytes Not Reportable 05/05/22 04:20 Acanthocytes (Spur) Not Reportable 05/05/22 04:20 Rouleaux Not Reportable 05/05/22 04:20 Hemoglobin C Crystals Not Reportable 05/05/22 04:20 Schistocytes Not Reportable 05/05/22 04:20 Malaria parasites Not Reportable 05/05/22 04:20 Torrey Bodies Not Reportable 05/05/22 04:20 Hem Pathologist Commnt No 05/05/22 04:20 PT 17.6 Sec. (12.2-14.9) H 05/04/22 04:26 INR 1.29 (0.87-1.13) H 05/04/22 04:26 APTT 39.4 Sec. (24.2-36.6) H 05/03/22 04:24 Heparin Anti-Xa Level < 0.10 U.I./ml (0.3-0.7) L 04/24/22 10:20 ABG pH 7.417 pH Units (7.350-7.450) 05/06/22 04:45 ABG pCO2 41.1 mm Hg 05/06/22 04:45 ABG pO2 112.7 mm Hg (80.0-90.0) H 05/06/22 04:45 ABG HCO3 25.9 mmol/L (20.0-26.0) 05/06/22 04:45 ABG O2 Saturation 98.1 % (95.0-99.0) 05/06/22 04:45 ABG O2 Content 10.8 (0.0-44) 05/06/22 04:45 ABG Base Excess 1.2 mmol/L (-2.0-3.0) 05/06/22 04:45 ABG Hemoglobin 7.8 gm/dl (12.0-16.0) L 05/06/22 04:45 ABG Carboxyhemoglobin 1.6 % (0.0-5.0) 05/06/22 04:45 ABG Methemoglobin 0.5 % (0.0-1.5) 05/06/22 04:45 Oxyhemoglobin 96.1 % (95.0-99.0) 05/06/22 04:45 FiO2 40 % 05/06/22 04:45 Sodium 131 mmol/L (137-145) L 05/07/22 04:15 Potassium 3.4 mmol/L (3.6-5.0) L 05/07/22 04:15 Chloride 95.3 mmol/L (98-107) L 05/07/22 04:15 Carbon Dioxide 28 mmol/L (22-30) 05/07/22 04:15 Anion Gap 11 mmol/L 05/07/22 04:15 BUN 28 mg/dL (7-17) H 05/07/22 04:15 Creatinine 2.5 mg/dL (0.6-1.2) H 05/07/22 04:15 Estimated GFR 23 ml/min 05/07/22 04:15 BUN/Creatinine Ratio 11 % 05/07/22 04:15 Glucose 140 mg/dL (65-100) H 05/07/22 04:15 POC Glucose 136 mg/dL (70-105) H 05/07/22 05:26 Lactic Acid 1.60 mmol/L (0.7-2.0) 04/19/22 07:14 Calcium 8.9 mg/dL (8.4-10.2) 05/07/22 04:15 Phosphorus 1.20 mg/dL (2.5-4.5) L 05/07/22 04:15 Magnesium 1.70 mg/dL (1.7-2.3) 05/07/22 04:15 Total Bilirubin 0.30 mg/dL (0.1-1.2) 04/20/22 05:30 AST 11 units/L (5-40) 04/20/22 05:30 ALT 7 units/L (7-56) 04/20/22 05:30 Alkaline Phosphatase 101 units/L (35-129) 04/20/22 05:30 Ammonia 25.0 umol/L (25-60) 04/19/22 04:53 Troponin T 0.415 ng/mL (0.00-0.029) H* 04/19/22 04:53 Total Protein 6.4 g/dL (6.3-8.2) 04/20/22 05:30 Albumin 2.4 g/dL (3.9-5) L 04/20/22 05:30 Albumin/Globulin Ratio 0.6 % 04/20/22 05:30 Procalcitonin 42.42 ng/mL (<0.15) 05/05/22 04:20 TSH 1.700 mlU/mL (0.270-4.200) 04/19/22 04:53 Free T4 0.28 ng/dL (0.76-1.46) L 04/19/22 04:53 Total Cortisol 24.4 mcg/dL () 04/27/22 04:45 Random Vancomycin 9.6 ug/mL (0-40.0) 05/07/22 04:15 Coronavirus (PCR) Negative (Negative) 05/03/22 11:30 Hepatitis A IgM Ab Non-reactive (NonReactive) 04/19/22 04:53 Hep Bs Antigen Non-reactive (Negative) 04/19/22 04:53 Hep B Core IgM Ab Non-reactive (NonReactive) 04/19/22 04:53 Hepatitis C Antibody Non-reactive (NonReactive) 04/19/22 04:53 Blood Type A POSITIVE 05/04/22 05:30 Antibody Screen Negative 05/04/22 05:30 Crossmatch See Detail 05/04/22 05:30 Microbiology: Microbiology 05/04/22 16:30 Peripheral/Venous Blood Culture - Preliminary 05/04/22 16:30 Peripheral/Venous Blood Culture - Preliminary NO GROWTH AFTER 48 HOURS Cleary/IV: Voiding Method Incontinent Active Medications - Current Medications Current Medications: Generic Name Dose Route Start Last Admin Trade Name Freq PRN Reason Stop Dose Admin Acetaminophen 650 mg 04/22/22 20:12 05/03/22 23:41 Acetaminophen 325 Mg/10.15 Ml Oral Liqd Unit Dose PO 650 mg Q6H PRN Administration Pain MILD(1-3)/Fever >100.5/DRAKE Acetylcysteine 200 mg 05/05/22 14:00 05/07/22 08:14 Acetylcysteine 20% 200 Mg/1 Ml *For Inhalation Use* INHALATION 05/10/22 13:59 200 mg TID CONNOR Administration Albumin Human 25 gm 04/21/22 13:00 04/22/22 16:31 Albumin Human 25% (25 Gm/100 Ml) Inj IV 25 gm BIANCA PRN Administration Hypotension Albuterol 2.5 mg 04/21/22 08:30 04/24/22 16:51 Albuterol 2.5 Mg/3 Ml Nebu IH 2.5 mg Q3HRT PRN Administration Shortness Of Breath Albuterol/Ipratropium 1 ampul 04/21/22 14:00 05/07/22 08:14 Ipratropium/Albuterol Sulfate 3 Ml Ampul.Neb IH 1 ampul TIDRT CONNOR Administration Docusate Sodium 100 mg 05/01/22 22:00 05/07/22 09:43 Docusate Sodium 100 Mg/10 Ml Oral Liqd FEEDTUBE 100 mg BID CONNOR Administration Epoetin Lb-epbx 20,000 unit 04/23/22 12:00 05/06/22 19:23 Epoetin Lb-Epbx 20,000 Unit/1 Ml Vial IV 20,000 unit BIANCA PRN Administration HEMODIALYSIS Fentanyl 50 mcg 05/03/22 10:29 05/05/22 12:23 Fentanyl 100 Mcg/2 Ml Inj IV 25 mcg Q10MIN PRN Administration ANALGESIA Sodium Chloride 100 mls @ 999 mls/hr 04/22/22 09:12 Nacl 0.9% IV BIANCA PRN Hypotension Fentanyl Citrate 2,000 mcg in 100 mls @ 2.722 mls/hr 05/03/22 11:00 Fentanyl Drip Premix IV TITR CONNOR Protocol 1 MCG/KG/HR NORepinephrine/NS 8 MG-250 ML 8 mg in 250 mls @ 3.75 mls/hr 05/03/22 13:15 05/06/22 10:06 Norepinephrine/Ns 8 Mg-250 Ml (Double Conc) IV 0 mcg/min TITRATE CONNOR 0 mls/hr Titration Protocol 2 MCG/MIN Vasopressin 20 unit/ Sodium 101 mls @ 9.09 mls/hr 05/04/22 00:30 05/06/22 11:21 Chloride IV 0 units/min TITR CONNOR 0 mls/hr Infusion 0.03 UNITS/MIN Cefepime HCl 1 gm in 100 mls @ 200 mls/hr 05/04/22 18:00 05/05/22 17:37 Cefepime/Ns 1 Gm/100 Ml IV 200 mls/hr QPM CONNOR Administration Protocol Lansoprazole 30 mg 04/23/22 10:00 05/07/22 09:43 Lansoprazole 30 Mg Solutab FEEDTUBE 30 mg QDAY CONNOR Administration Lorazepam 0.5 mg 04/25/22 09:59 Lorazepam 0.5 Mg Tab FEEDTUBE QDAY PRN Anxiety Memantine 5 mg 04/25/22 10:00 05/06/22 22:49 Memantine 5 Mg Tab FEEDTUBE 5 mg BID CONNOR Administration Metoclopramide HCl 5 mg 04/19/22 09:55 Metoclopramide 10 Mg/2 Ml Inj IV Q6H PRN Nausea And Vomiting Midodrine 20 mg 04/26/22 14:00 05/07/22 08:13 Midodrine 10 Mg Tab FEEDTUBE 20 mg TID CONNOR Administration Naloxone HCl 0.1 mg 04/19/22 09:55 Naloxone 0.4 Mg/1 Ml Inj IV Q2MIN PRN Res Rate </= 8 or 02 SAT < 92% Polyethylene Glycol 17 gm 05/03/22 10:00 05/07/22 09:43 Polyethylene Glycol 3350 17 Gm Powder FEEDTUBE 17 gm QDAY CONNOR Administration Risperidone 0.5 mg 04/25/22 11:00 05/07/22 09:43 Risperidone 1 Mg Tab FEEDTUBE 0.5 mg BID CONNOR Administration Scopolamine 1 each 05/02/22 10:00 05/05/22 09:45 Scopolamine Transdermal Patch 72 Hr TD 1 each Q3D CONNOR Administration Senna 17.2 mg 04/23/22 10:00 05/07/22 09:43 Sennosides 8.6 Mg Tab FEEDTUBE 17.2 mg BID CONNOR Administration Sodium Chloride 10 ml 04/19/22 12:00 05/07/22 09:43 Sodium Chloride 0.9% 10 Ml Flush Syringe IV 10 ml BID CONNOR Administration Sodium Chloride 10 ml 04/19/22 11:19 Sodium Chloride 0.9% 10 Ml Flush Syringe IV PRN PRN LINE FLUSH Sodium Phosphate 250 mg 05/07/22 10:00 05/07/22 09:43 K-Phos Neutral 250 Mg Tab PO 05/07/22 22:01 250 mg QID CONNOR Administration Valproic Acid 750 mg 04/22/22 22:00 05/07/22 09:43 Valproic Acid 250 Mg/5 Ml Oral Liqd FEEDTUBE 750 mg BID CONNOR Administration Nutrition/Malnutrition Assess - Dietary Evaluation Nutrition/Malnutrition Findings: Nutrition Notes Start: 04/19/22 17:39 Freq: Status: Active Protocol: Document 05/05/22 14:44 NHALL (Rec: 05/05/22 14:55 NHALL [id number]) Nutrition Notes Initial or Follow up Reassessment Current Diagnosis CKD (stage V CKD),Sepsis, Respiratory Failure Other Pertinent Diagnosis Neurogenic dysphagia, metabolic encephalopathy, vascular dementia Current Diet No diet order in chart Labs/Tests Na 130 K 3.3 BUN 24 Cr 2.3 BG 163 Phos 1.5 Pertinent Medications Colace, Senokot, Miralax, Levophed gtt, Vasopressin gtt Height 5 ft 2 in Weight 54.43 kg [place] Body Weight (kg) 50.00 BMI 21.9 Weight Status Appropriate Subjective/Other Information PEG placed yesterday. Pt remains on vent and HD support . Observed Nepro infusing at 30ml/hr. No BM documented today. Bronchoscopy performed today. Percent of energy/protein needs met: 104% energy 90% pro Burn Absent Trauma Absent #1 Nutrition Diagnosis Inadequate oral intake, Swallowing difficulty Diagnosis Progress(for reassessment Continues documentation) Is patient on ventilator? Yes Is Patient Ambulatory and/or Out of Bed No REE-([facility]-confined to bed) [phone] Calculation Used for Recommendations [facility] Additional Notes Pro needs >1.2g/kg: >65g/day Fluid needs 1-1.5L/day Nutrition Intervention Nutrition Support: Continue Nepro at 30ml/hr with 130ml water flush q4h. Kcal 1,296 Protein (gm) 58 Carbohydrates (gm) 116 Fat (gm) 69 Fluid (mL) 523 Fiber (gm) 9 Goal #1 TF tolerance Goal #2 TF to meet at least 75% energy and pro needs Follow-Up By: 05/12/22 Additional Comments F/U: stable TF, vent status, wt, BM <MELINDA BOWEN - Last Filed: 05/07/22 21:16> Assessment and Plan Assessment and plan: I saw and evaluated the patient. I agree with the findings and the plan of care as documented in the Nurse Practitioner's~note, with the following corrections and additions. Hospitalist Physical - Constitutional Vitals: Temp Pulse Resp BP Pulse Ox 98.2 F 103 H 25 H 112/58 95 05/07/22 20:43 05/07/22 20:14 05/07/22 20:00 05/07/22 20:00 05/07/22 20:00 HEART Score - HEART Score Troponin: Troponin T 0.415 ng/mL (0.00-0.029) H* 04/19/22 04:53 Results - Labs CBC & Chem 7: 05/07/22 04:15 05/07/22 04:15 Labs: Laboratory Last Values WBC 7.5 K/mm3 (4.5-11.0) 05/07/22 04:15 RBC 2.95 M/mm3 (3.65-5.03) L 05/07/22 04:15 Hgb 8.4 gm/dl (10.1-14.3) L 05/07/22 04:15 Hct 26.7 % (30.3-42.9) L 05/07/22 04:15 MCV 91 fl (79-97) 05/07/22 04:15 MCH 28 pg (28-32) 05/07/22 04:15 MCHC 31 % (30-34) 05/07/22 04:15 RDW 16.7 % (13.2-15.2) H 05/07/22 04:15 Plt Count 112 K/mm3 (140-440) L 05/07/22 04:15 Lymph % (Auto) 26.7 % (13.4-35.0) 04/20/22 05:30 [place] % (Auto) 15.2 % (0.0-7.3) H 04/20/22 05:30 Eos % (Auto) 3.8 % (0.0-4.3) 04/20/22 05:30 Baso % (Auto) 1.2 % (0.0-1.8) 04/20/22 05:30 Lymph # (Auto) 1.1 K/mm3 (1.2-5.4) L 04/20/22 05:30 [place] # (Auto) 0.6 K/mm3 (0.0-0.8) 04/20/22 05:30 Eos # (Auto) 0.2 K/mm3 (0.0-0.4) 04/20/22 05:30 Baso # (Auto) 0.0 K/mm3 (0.0-0.1) 04/20/22 05:30 Add Manual Diff Complete 05/05/22 04:20 Total Counted 100 05/05/22 04:20 Seg Neutrophils % 53.1 % (40.0-70.0) 04/20/22 05:30 Seg Neuts % (Manual) 86.0 % (40.0-70.0) H 05/05/22 04:20 Band Neutrophils % 3.0 % 05/05/22 04:20 Lymphocytes % (Manual) 4.0 % (13.4-35.0) L 05/05/22 04:20 Reactive Lymphs % (Man) 0 % 05/05/22 04:20 Monocytes % (Manual) 6.0 % (0.0-7.3) 05/05/22 04:20 Eosinophils % (Manual) 1.0 % (0.0-4.3) 05/05/22 04:20 Basophils % (Manual) 0 % (0.0-1.8) 05/05/22 04:20 Metamyelocytes % 0 % 05/05/22 04:20 Myelocytes % 0 % 05/05/22 04:20 Promyelocytes % 0 % 05/05/22 04:20 Blast Cells % 0 % 05/05/22 04:20 Nucleated RBC % 1.0 % (0.0-0.9) H 05/05/22 04:20 Seg Neutrophils # 2.2 K/mm3 (1.8-7.7) 04/20/22 05:30 Seg Neutrophils # Man 11.0 K/mm3 (1.8-7.7) H 05/05/22 04:20 Band Neutrophils # 0.4 K/mm3 05/05/22 04:20 Lymphocytes # (Manual) 0.5 K/mm3 (1.2-5.4) L 05/05/22 04:20 Abs React Lymphs (Man) 0.0 K/mm3 05/05/22 04:20 Monocytes # (Manual) 0.8 K/mm3 (0.0-0.8) 05/05/22 04:20 Eosinophils # (Manual) 0.1 K/mm3 (0.0-0.4) 05/05/22 04:20 Basophils # (Manual) 0.0 K/mm3 (0.0-0.1) 05/05/22 04:20 Metamyelocytes # 0.0 K/mm3 05/05/22 04:20 Myelocytes # 0.0 K/mm3 05/05/22 04:20 Promyelocytes # 0.0 K/mm3 05/05/22 04:20 Blast Cells # 0.0 K/mm3 05/05/22 04:20 WBC Morphology Not Reportable 05/05/22 04:20 Hypersegmented Neuts Not Reportable 05/05/22 04:20 Hyposegmented Neuts Not Reportable 05/05/22 04:20 Hypogranular Neuts Not Reportable 05/05/22 04:20 Smudge Cells Not Reportable 05/05/22 04:20 Toxic Granulation Not Reportable 05/05/22 04:20 Toxic Vacuolation Not Reportable 05/05/22 04:20 Dohle Bodies Not Reportable 05/05/22 04:20 Pelger-Huet Anomaly Not Reportable 05/05/22 04:20 Ubaldo Rods Not Reportable 05/05/22 04:20 Platelet Estimate Consistent w auto 05/05/22 04:20 Clumped Platelets Not Reportable 05/05/22 04:20 Plt Clumps, EDTA Not Reportable 05/05/22 04:20 Large Platelets Not Reportable 05/05/22 04:20 Giant Platelets Not Reportable 05/05/22 04:20 Platelet Satelliting Not Reportable 05/05/22 04:20 Plt Morphology Comment Not Reportable 05/05/22 04:20 RBC Morphology Not Reportable 05/05/22 04:20 Dimorphic RBCs Not Reportable 05/05/22 04:20 Polychromasia Not Reportable 05/05/22 04:20 Hypochromasia 2+ 05/05/22 04:20 Poikilocytosis Not Reportable 05/05/22 04:20 Anisocytosis 1+ 05/05/22 04:20 Microcytosis Not Reportable 05/05/22 04:20 Macrocytosis Not Reportable 05/05/22 04:20 Spherocytes Not Reportable 05/05/22 04:20 Pappenheimer Bodies Not Reportable 05/05/22 04:20 Sickle Cells Not Reportable 05/05/22 04:20 Target Cells Not Reportable 05/05/22 04:20 Tear Drop Cells Not Reportable 05/05/22 04:20 Ovalocytes Not Reportable 05/05/22 04:20 Helmet Cells Not Reportable 05/05/22 04:20 Rangel-G[place] Bodies Not Reportable 05/05/22 04:20 [place] Rings Not Reportable 05/05/22 04:20 Stacey Cells Not Reportable 05/05/22 04:20 Bite Cells Not Reportable 05/05/22 04:20 Crenated Cell Not Reportable 05/05/22 04:20 Elliptocytes Not Reportable 05/05/22 04:20 Acanthocytes (Spur) Not Reportable 05/05/22 04:20 Rouleaux Not Reportable 05/05/22 04:20 Hemoglobin C Crystals Not Reportable 05/05/22 04:20 Schistocytes Not Reportable 05/05/22 04:20 Malaria parasites Not Reportable 05/05/22 04:20 Torrey Bodies Not Reportable 05/05/22 04:20 Hem Pathologist Commnt No 05/05/22 04:20 PT 17.6 Sec. (12.2-14.9) H 05/04/22 04:26 INR 1.29 (0.87-1.13) H 05/04/22 04:26 APTT 39.4 Sec. (24.2-36.6) H 05/03/22 04:24 Heparin Anti-Xa Level < 0.10 U.I./ml (0.3-0.7) L 04/24/22 10:20 ABG pH 7.417 pH Units (7.350-7.450) 05/06/22 04:45 ABG pCO2 41.1 mm Hg 05/06/22 04:45 ABG pO2 112.7 mm Hg (80.0-90.0) H 05/06/22 04:45 ABG HCO3 25.9 mmol/L (20.0-26.0) 05/06/22 04:45 ABG O2 Saturation 98.1 % (95.0-99.0) 05/06/22 04:45 ABG O2 Content 10.8 (0.0-44) 05/06/22 04:45 ABG Base Excess 1.2 mmol/L (-2.0-3.0) 05/06/22 04:45 ABG Hemoglobin 7.8 gm/dl (12.0-16.0) L 05/06/22 04:45 ABG Carboxyhemoglobin 1.6 % (0.0-5.0) 05/06/22 04:45 ABG Methemoglobin 0.5 % (0.0-1.5) 05/06/22 04:45 Oxyhemoglobin 96.1 % (95.0-99.0) 05/06/22 04:45 FiO2 40 % 05/06/22 04:45 Sodium 131 mmol/L (137-145) L 05/07/22 04:15 Potassium 3.4 mmol/L (3.6-5.0) L 05/07/22 04:15 Chloride 95.3 mmol/L (98-107) L 05/07/22 04:15 Carbon Dioxide 28 mmol/L (22-30) 05/07/22 04:15 Anion Gap 11 mmol/L 05/07/22 04:15 BUN 28 mg/dL (7-17) H 05/07/22 04:15 Creatinine 2.5 mg/dL (0.6-1.2) H 05/07/22 04:15 Estimated GFR 23 ml/min 05/07/22 04:15 BUN/Creatinine Ratio 11 % 05/07/22 04:15 Glucose 140 mg/dL (65-100) H 05/07/22 04:15 POC Glucose 136 mg/dL (70-105) H 05/07/22 11:08 Lactic Acid 1.60 mmol/L (0.7-2.0) 04/19/22 07:14 Calcium 8.9 mg/dL (8.4-10.2) 05/07/22 04:15 Phosphorus 1.20 mg/dL (2.5-4.5) L 05/07/22 04:15 Magnesium 1.70 mg/dL (1.7-2.3) 05/07/22 04:15 Total Bilirubin 0.30 mg/dL (0.1-1.2) 04/20/22 05:30 AST 11 units/L (5-40) 04/20/22 05:30 ALT 7 units/L (7-56) 04/20/22 05:30 Alkaline Phosphatase 101 units/L (35-129) 04/20/22 05:30 Ammonia 25.0 umol/L (25-60) 04/19/22 04:53 Troponin T 0.415 ng/mL (0.00-0.029) H* 04/19/22 04:53 Total Protein 6.4 g/dL (6.3-8.2) 04/20/22 05:30 Albumin 2.4 g/dL (3.9-5) L 04/20/22 05:30 Albumin/Globulin Ratio 0.6 % 04/20/22 05:30 Procalcitonin 42.42 ng/mL (<0.15) 05/05/22 04:20 TSH 1.700 mlU/mL (0.270-4.200) 04/19/22 04:53 Free T4 0.28 ng/dL (0.76-1.46) L 04/19/22 04:53 Total Cortisol 24.4 mcg/dL () 04/27/22 04:45 Random Vancomycin 9.6 ug/mL (0-40.0) 05/07/22 04:15 Coronavirus (PCR) Negative (Negative) 05/03/22 11:30 Hepatitis A IgM Ab Non-reactive (NonReactive) 04/19/22 04:53 Hep Bs Antigen Non-reactive (Negative) 04/19/22 04:53 Hep B Core IgM Ab Non-reactive (NonReactive) 04/19/22 04:53 Hepatitis C Antibody Non-reactive (NonReactive) 04/19/22 04:53 Blood Type A POSITIVE 05/04/22 05:30 Antibody Screen Negative 05/04/22 05:30 Crossmatch See Detail 05/04/22 05:30 Microbiology: Microbiology 05/03/22 10:30 Bronchial Washings - Right Lower Lobe Respiratory Culture - Final Methicillin Resist S. Aureus 05/04/22 16:30 Peripheral/Venous Blood Culture - Preliminary Coag Negative Staphylococcus 05/04/22 16:30 Peripheral/Venous Blood Culture - Preliminary NO GROWTH AFTER 48 HOURS Cleary/IV: Voiding Method Incontinent Active Medications - Current Medications Current Medications: Generic Name Dose Route Start Last Admin Trade Name Freq PRN Reason Stop Dose Admin Acetaminophen 650 mg 04/22/22 20:12 05/03/22 23:41 Acetaminophen 325 Mg/10.15 Ml Oral Liqd Unit Dose PO 650 mg Q6H PRN Administration Pain MILD(1-3)/Fever >100.5/DRAKE Acetylcysteine 200 mg 05/05/22 14:00 05/07/22 20:56 Acetylcysteine 20% 200 Mg/1 Ml *For Inhalation Use* INHALATION 05/10/22 13:59 200 mg TID CONNOR Administration Albumin Human 25 gm 04/21/22 13:00 04/22/22 16:31 Albumin Human 25% (25 Gm/100 Ml) Inj IV 25 gm BIANCA PRN Administration Hypotension Albuterol 2.5 mg 04/21/22 08:30 04/24/22 16:51 Albuterol 2.5 Mg/3 Ml Nebu IH 2.5 mg Q3HRT PRN Administration Shortness Of Breath Albuterol/Ipratropium 1 ampul 04/21/22 14:00 05/07/22 20:56 Ipratropium/Albuterol Sulfate 3 Ml Ampul.Neb IH 1 ampul TIDRT CONNOR Administration Docusate Sodium 100 mg 05/01/22 22:00 05/07/22 21:01 Docusate Sodium 100 Mg/10 Ml Oral Liqd FEEDTUBE Not Given BID CONNOR Epoetin Lb-epbx 20,000 unit 04/23/22 12:00 05/06/22 19:23 Epoetin Lb-Epbx 20,000 Unit/1 Ml Vial IV 20,000 unit BIANCA PRN Administration HEMODIALYSIS Fentanyl 50 mcg 05/03/22 10:29 05/05/22 12:23 Fentanyl 100 Mcg/2 Ml Inj IV 25 mcg Q10MIN PRN Administration ANALGESIA Sodium Chloride 100 mls @ 999 mls/hr 04/22/22 09:12 Nacl 0.9% IV BIANCA PRN Hypotension Fentanyl Citrate 2,000 mcg in 100 mls @ 2.722 mls/hr 05/03/22 11:00 Fentanyl Drip Premix IV TITR CONNOR Protocol 1 MCG/KG/HR NORepinephrine/NS 8 MG-250 ML 8 mg in 250 mls @ 3.75 mls/hr 05/03/22 13:15 05/06/22 10:06 Norepinephrine/Ns 8 Mg-250 Ml (Double Conc) IV 0 mcg/min TITRATE CONNOR 0 mls/hr Titration Protocol 2 MCG/MIN Vasopressin 20 unit/ Sodium 101 mls @ 9.09 mls/hr 05/04/22 00:30 05/06/22 11:21 Chloride IV 0 units/min TITR CONNOR 0 mls/hr Infusion 0.03 UNITS/MIN Cefepime HCl 1 gm in 100 mls @ 200 mls/hr 05/04/22 18:00 05/07/22 17:11 Cefepime/Ns 1 Gm/100 Ml IV 200 mls/hr QPM CONNOR Administration Protocol Lansoprazole 30 mg 04/23/22 10:00 05/07/22 09:43 Lansoprazole 30 Mg Solutab FEEDTUBE 30 mg QDAY CONNOR Administration Lorazepam 0.5 mg 04/25/22 09:59 Lorazepam 0.5 Mg Tab FEEDTUBE QDAY PRN Anxiety Memantine 5 mg 04/25/22 10:00 05/07/22 21:04 Memantine 5 Mg Tab FEEDTUBE 5 mg BID CONNOR Administration Metoclopramide HCl 5 mg 04/19/22 09:55 Metoclopramide 10 Mg/2 Ml Inj IV Q6H PRN Nausea And Vomiting Midodrine 20 mg 04/26/22 14:00 05/07/22 21:03 Midodrine 10 Mg Tab FEEDTUBE 20 mg TID CONNOR Administration Naloxone HCl 0.1 mg 04/19/22 09:55 Naloxone 0.4 Mg/1 Ml Inj IV Q2MIN PRN Res Rate </= 8 or 02 SAT < 92% Polyethylene Glycol 17 gm 05/03/22 10:00 05/07/22 09:43 Polyethylene Glycol 3350 17 Gm Powder FEEDTUBE 17 gm QDAY CONNOR Administration Risperidone 0.5 mg 04/25/22 11:00 05/07/22 21:05 Risperidone 1 Mg Tab FEEDTUBE 0.5 mg BID CONNOR Administration Scopolamine 1 each 05/02/22 10:00 05/05/22 09:45 Scopolamine Transdermal Patch 72 Hr TD 1 each Q3D CONNOR Administration Senna 17.2 mg 04/23/22 10:00 05/07/22 21:01 Sennosides 8.6 Mg Tab FEEDTUBE Not Given BID CONNOR Sodium Chloride 10 ml 04/19/22 12:00 05/07/22 21:05 Sodium Chloride 0.9% 10 Ml Flush Syringe IV 10 ml BID CONNOR Administration Sodium Chloride 10 ml 04/19/22 11:19 Sodium Chloride 0.9% 10 Ml Flush Syringe IV PRN PRN LINE FLUSH Sodium Phosphate 250 mg 05/07/22 10:00 05/07/22 21:04 K-Phos Neutral 250 Mg Tab PO 05/07/22 22:01 250 mg QID CONNOR Administration Valproic Acid 750 mg 04/22/22 22:00 05/07/22 21:04 Valproic Acid 250 Mg/5 Ml Oral Liqd FEEDTUBE 750 mg BID CONNOR Administration Nutrition/Malnutrition Assess - Dietary Evaluation Nutrition/Malnutrition Findings: Nutrition Notes Start: 04/19/22 17:39 Freq: Status: Active Protocol: Document 05/05/22 14:44 SHILA (Rec: 05/05/22 14:55 SHILA [id number]) Nutrition Notes Initial or Follow up Reassessment Current Diagnosis CKD (stage V CKD),Sepsis, Respiratory Failure Other Pertinent Diagnosis Neurogenic dysphagia, metabolic encephalopathy, vascular dementia Current Diet No diet order in chart Labs/Tests Na 130 K 3.3 BUN 24 Cr 2.3 BG 163 Phos 1.5 Pertinent Medications Colace, Senokot, Miralax, Levophed gtt, Vasopressin gtt Height 5 ft 2 in Weight 54.43 kg [place] Body Weight (kg) 50.00 BMI 21.9 Weight Status Appropriate Subjective/Other Information PEG placed yesterday. Pt remains on vent and HD support . Observed Nepro infusing at 30ml/hr. No BM documented today. Bronchoscopy performed today. Percent of energy/protein needs met: 104% energy 90% pro Burn Absent Trauma Absent #1 Nutrition Diagnosis Inadequate oral intake, Swallowing difficulty Diagnosis Progress(for reassessment Continues documentation) Is patient on ventilator? Yes Is Patient Ambulatory and/or Out of Bed No REE-([facility]-confined to bed) 1244.844 Calculation Used for Recommendations [facility] Additional Notes Pro needs >1.2g/kg: >65g/day Fluid needs 1-1.5L/day Nutrition Intervention Nutrition Support: Continue Nepro at 30ml/hr with 130ml water flush q4h. Kcal 1,296 Protein (gm) 58 Carbohydrates (gm) 116 Fat (gm) 69 Fluid (mL) 523 Fiber (gm) 9 Goal #1 TF tolerance Goal #2 TF to meet at least 75% energy and pro needs Follow-Up By: 05/12/22 Additional Comments F/U: stable TF, vent status, wt, BM
[2022-05-07] MEDS ORDERED: VANCOMYCIN 750 MG in SODIUM CHLORIDE 0.9% 250ML 250 ML IV ONE (10:30)
[2022-05-07] MEDS: MEMANTINE 5 MG TAB FEEDTUBE SCH ×2 (10:41→21:04)
--- NOTE | 2022-05-07 13:31 | Progress Note ---
Assessment and Plan Acute hypoxemic respiratory failure on MVS s/p Bronchoscopy Acute on Chronic Hypotension- possibly secondary to sepsis Acute on Chronic Metabolic Encephalopathy Possible Shock Syndrome SVT Elevated troponin Bipolar disorder Schizophrenia, Hyperkalemia ESRD on hemodialysis Anemia of chronic disease, Type 2 NSTEMI GERD Subclinical Hypothyroidism Moderate protein caloric malnutrition -SBT today- Psupp- titrate pressure support to generte tidal volumes >300 -Decrease Midodrine to 15mg TID -VTE prophylaxis- on hold secondary to anemia requiring supportive blood transfusions. May re-challenge at a later date -Optimize UF prior to liberation from MVS -Discussed care plan with the son at the bedside answered all his questions- I discussed the possibility of tracheosotomy if she is unable to be liberated from MVS in a timely manner -Titrate supplemental oxygen to keep SpO2 90-92% -CXR, ABG as clinically indicated - sedation prn for target RASS 0 to -1 - VAP bundle addressed, aspiration precautions, HOB >40 - continue lung protective strategies - continue bronchodilators with pulmonary hygiene per RT -Chest PT, bronchodilators and mucolytics. -On Cefepime and Vancomycin, bronchial washings respiratory culture positive MRSA Adjust antibiotics/de-escalate based on clinical response and culture data- stop Cefepime ID following - wean per pulmonary driven protocols otherwise - enteral nutrition at goal rate as tolerated - femoral CVL replaced as no other viable site for access - Albumin 25 gms of 25% solution prn with dialysis - continue HD/UF per nephrology prescription for toxin and volume clearance - continue accuchecks with glycemic control per SSI (While critically ill target blood glucose of 140-180 mg/dL; avoid hypoglycemia) - avoid nephrotoxins, renally dose all medications - continue to avoid benzodiazepines, reduce the possibility of delirium - prn analgesia per CPOT score - Maintenance of sleep-wake cycle, avoid delirium - Stress ulcer (Lansoprazole) - mobility protocol, off loading and frequent turning per facility protocol to prevent pressure ulcers - Monitor hemodynamics closely - continue other care per attending / other consultants CONDITION: CRITICAL PROGNOSIS: GUARDED CODE STATUS: FULL CODE The high probability of a clinically significant, sudden or life-threatening deterioration of the [respiratory, cardiovascular, renal & neurologic] system(s) required my full and direct attention, intervention and personal management. The aggregate critical care time was [35] minutes without overlap. Time includes spent on; [x] Data Review and interpretation [x] Patient assessment and monitoring of vital signs [x] Documentation [x] Medication orders and management Subjective Date of service: 05/07/22 Principal diagnosis: Neurogenic dysphagia Interval history: Seen and examined at bedside; 24hour events reviewed; nursing and respiratory care staff consulted; no adverse overnight events reported to me; resting in bed; resting in bed; remains on MVS; off Levophed infusion; CXR improved aeration but persistent right lung infiltrates; no vomiting fever, or chills; Right femoral CVL for vasopressor support. Hypertensive today Son is visiting at the bedside Bronchial washings positive fro mRSA Objective Vital Signs - 12hr 05/07/22 05/07/22 05/07/22 01:49 02:00 02:15 Temperature Pulse Rate 104 H 101 H 101 H Pulse Rate [ Anterior Bilateral Throughout] Pulse Rate [ Bilateral Dorsalis Pedis] Pulse Rate [ From Monitor] Pulse Rate [ Left Dorsalis Pedis] Pulse Rate [ Left Radial] Pulse Rate [ Right Dorsalis Pedis] Pulse Rate [ Right Radial] Respiratory 15 15 15 Rate Respiratory Rate [Anterior Bilateral Throughout] Blood Pressure 116/65 116/65 108/52 O2 Sat by Pulse 97 96 96 Oximetry 05/07/22 05/07/22 05/07/22 02:30 02:45 03:00 Temperature Pulse Rate 105 H 106 H 106 H Pulse Rate [ Anterior Bilateral Throughout] Pulse Rate [ Bilateral Dorsalis Pedis] Pulse Rate [ From Monitor] Pulse Rate [ Left Dorsalis Pedis] Pulse Rate [ Left Radial] Pulse Rate [ Right Dorsalis Pedis] Pulse Rate [ Right Radial] Respiratory 16 16 15 Rate Respiratory Rate [Anterior Bilateral Throughout] Blood Pressure 108/52 140/65 140/65 O2 Sat by Pulse 96 96 95 Oximetry 05/07/22 05/07/22 05/07/22 03:16 03:30 03:45 Temperature Pulse Rate 101 H 103 H 105 H Pulse Rate [ Anterior Bilateral Throughout] Pulse Rate [ Bilateral Dorsalis Pedis] Pulse Rate [ From Monitor] Pulse Rate [ Left Dorsalis Pedis] Pulse Rate [ Left Radial] Pulse Rate [ Right Dorsalis Pedis] Pulse Rate [ Right Radial] Respiratory 14 14 14 Rate Respiratory Rate [Anterior Bilateral Throughout] Blood Pressure 111/54 94/42 112/75 O2 Sat by Pulse 97 97 97 Oximetry 05/07/22 05/07/22 05/07/22 04:00 04:15 04:30 Temperature 98.8 F Pulse Rate 102 H 101 H 99 H Pulse Rate [ Anterior Bilateral Throughout] Pulse Rate [ Bilateral Dorsalis Pedis] Pulse Rate [ 99 H From Monitor] Pulse Rate [ Left Dorsalis Pedis] Pulse Rate [ Left Radial] Pulse Rate [ Right Dorsalis Pedis] Pulse Rate [ Right Radial] Respiratory 14 16 14 Rate Respiratory Rate [Anterior Bilateral Throughout] Blood Pressure 112/75 117/59 117/59 O2 Sat by Pulse 97 97 97 Oximetry 05/07/22 05/07/22 05/07/22 04:46 05:00 05:15 Temperature Pulse Rate 104 H 108 H 110 H Pulse Rate [ Anterior Bilateral Throughout] Pulse Rate [ Bilateral Dorsalis Pedis] Pulse Rate [ From Monitor] Pulse Rate [ Left Dorsalis Pedis] Pulse Rate [ Left Radial] Pulse Rate [ Right Dorsalis Pedis] Pulse Rate [ Right Radial] Respiratory 15 13 16 Rate Respiratory Rate [Anterior Bilateral Throughout] Blood Pressure 98/48 125/59 148/72 O2 Sat by Pulse 97 95 96 Oximetry 05/07/22 05/07/22 05/07/22 05:30 05:45 06:00 Temperature Pulse Rate 108 H 108 H 107 H Pulse Rate [ Anterior Bilateral Throughout] Pulse Rate [ Bilateral Dorsalis Pedis] Pulse Rate [ From Monitor] Pulse Rate [ Left Dorsalis Pedis] Pulse Rate [ Left Radial] Pulse Rate [ Right Dorsalis Pedis] Pulse Rate [ Right Radial] Respiratory 14 14 15 Rate Respiratory Rate [Anterior Bilateral Throughout] Blood Pressure 148/72 107/51 109/56 O2 Sat by Pulse 96 97 97 Oximetry 05/07/22 05/07/22 05/07/22 06:15 06:30 06:45 Temperature Pulse Rate 107 H 106 H 108 H Pulse Rate [ Anterior Bilateral Throughout] Pulse Rate [ Bilateral Dorsalis Pedis] Pulse Rate [ From Monitor] Pulse Rate [ Left Dorsalis Pedis] Pulse Rate [ Left Radial] Pulse Rate [ Right Dorsalis Pedis] Pulse Rate [ Right Radial] Respiratory 15 18 15 Rate Respiratory Rate [Anterior Bilateral Throughout] Blood Pressure 134/63 134/66 144/67 O2 Sat by Pulse 96 97 96 Oximetry 05/07/22 05/07/22 05/07/22 07:00 07:15 07:19 Temperature 98.3 F Pulse Rate 104 H 104 H Pulse Rate [ Anterior Bilateral Throughout] Pulse Rate [ Bilateral Dorsalis Pedis] Pulse Rate [ From Monitor] Pulse Rate [ Left Dorsalis Pedis] Pulse Rate [ Left Radial] Pulse Rate [ Right Dorsalis Pedis] Pulse Rate [ Right Radial] Respiratory 14 14 Rate Respiratory Rate [Anterior Bilateral Throughout] Blood Pressure 109/53 114/57 O2 Sat by Pulse 97 97 Oximetry 05/07/22 05/07/22 05/07/22 07:30 07:45 08:00 Temperature 100.1 F H Pulse Rate 101 H 104 H 118 H Pulse Rate [ Anterior Bilateral Throughout] Pulse Rate [ 108 H Bilateral Dorsalis Pedis] Pulse Rate [ 109 H From Monitor] Pulse Rate [ 108 H Left Dorsalis Pedis] Pulse Rate [ 110 H Left Radial] Pulse Rate [ 108 H Right Dorsalis Pedis] Pulse Rate [ 110 H Right Radial] Respiratory 14 14 18 Rate Respiratory Rate [Anterior Bilateral Throughout] Blood Pressure 99/51 160/70 178/67 O2 Sat by Pulse 96 97 90 Oximetry 05/07/22 05/07/22 05/07/22 08:06 08:15 08:30 Temperature Pulse Rate 110 H 112 H 113 H Pulse Rate [ 114 H Anterior Bilateral Throughout] Pulse Rate [ Bilateral Dorsalis Pedis] Pulse Rate [ From Monitor] Pulse Rate [ Left Dorsalis Pedis] Pulse Rate [ Left Radial] Pulse Rate [ Right Dorsalis Pedis] Pulse Rate [ Right Radial] Respiratory 16 15 Rate Respiratory 17 Rate [Anterior Bilateral Throughout] Blood Pressure 178/67 161/83 147/70 O2 Sat by Pulse 96 93 97 Oximetry 05/07/22 05/07/22 05/07/22 08:45 09:00 09:15 Temperature Pulse Rate 110 H 109 H 110 H Pulse Rate [ Anterior Bilateral Throughout] Pulse Rate [ Bilateral Dorsalis Pedis] Pulse Rate [ From Monitor] Pulse Rate [ Left Dorsalis Pedis] Pulse Rate [ Left Radial] Pulse Rate [ Right Dorsalis Pedis] Pulse Rate [ Right Radial] Respiratory 19 15 17 Rate Respiratory Rate [Anterior Bilateral Throughout] Blood Pressure 140/65 136/66 151/67 O2 Sat by Pulse 97 95 94 Oximetry 05/07/22 05/07/22 05/07/22 09:30 09:45 10:01 Temperature Pulse Rate 112 H 112 H 109 H Pulse Rate [ Anterior Bilateral Throughout] Pulse Rate [ Bilateral Dorsalis Pedis] Pulse Rate [ From Monitor] Pulse Rate [ Left Dorsalis Pedis] Pulse Rate [ Left Radial] Pulse Rate [ Right Dorsalis Pedis] Pulse Rate [ Right Radial] Respiratory 23 14 18 Rate Respiratory Rate [Anterior Bilateral Throughout] Blood Pressure 136/73 151/59 150/85 O2 Sat by Pulse 93 93 96 Oximetry 05/07/22 05/07/22 05/07/22 10:15 10:30 10:45 Temperature Pulse Rate 112 H 110 H 117 H Pulse Rate [ Anterior Bilateral Throughout] Pulse Rate [ Bilateral Dorsalis Pedis] Pulse Rate [ From Monitor] Pulse Rate [ Left Dorsalis Pedis] Pulse Rate [ Left Radial] Pulse Rate [ Right Dorsalis Pedis] Pulse Rate [ Right Radial] Respiratory 22 17 17 Rate Respiratory Rate [Anterior Bilateral Throughout] Blood Pressure 132/63 133/64 133/64 O2 Sat by Pulse 95 96 92 Oximetry 05/07/22 05/07/22 05/07/22 11:00 11:15 11:31 Temperature Pulse Rate 104 H 103 H 102 H Pulse Rate [ Anterior Bilateral Throughout] Pulse Rate [ Bilateral Dorsalis Pedis] Pulse Rate [ From Monitor] Pulse Rate [ Left Dorsalis Pedis] Pulse Rate [ Left Radial] Pulse Rate [ Right Dorsalis Pedis] Pulse Rate [ Right Radial] Respiratory 12 32 H 19 Rate Respiratory Rate [Anterior Bilateral Throughout] Blood Pressure 128/62 134/65 137/39 O2 Sat by Pulse 96 96 94 Oximetry 05/07/22 05/07/22 05/07/22 11:37 11:45 12:00 Temperature 98.5 F 99.3 F Pulse Rate 102 H 103 H Pulse Rate [ Anterior Bilateral Throughout] Pulse Rate [ 102 H Bilateral Dorsalis Pedis] Pulse Rate [ 103 H From Monitor] Pulse Rate [ Left Dorsalis Pedis] Pulse Rate [ Left Radial] Pulse Rate [ Right Dorsalis Pedis] Pulse Rate [ Right Radial] Respiratory 20 14 Rate Respiratory Rate [Anterior Bilateral Throughout] Blood Pressure 141/57 158/82 O2 Sat by Pulse 97 96 Oximetry 05/07/22 05/07/22 05/07/22 12:01 12:15 12:43 Temperature Pulse Rate 104 H 107 H 114 H Pulse Rate [ Anterior Bilateral Throughout] Pulse Rate [ Bilateral Dorsalis Pedis] Pulse Rate [ From Monitor] Pulse Rate [ Left Dorsalis Pedis] Pulse Rate [ Left Radial] Pulse Rate [ Right Dorsalis Pedis] Pulse Rate [ Right Radial] Respiratory 18 17 21 Rate Respiratory Rate [Anterior Bilateral Throughout] Blood Pressure 131/56 156/68 132/55 O2 Sat by Pulse 96 95 94 Oximetry Constitutional: no acute distress, alert, other (eldely female with mildly increased respiratory effort at rest on MVS) Eyes: non-icteric ENT: oropharynx moist, oropharyngeal exudate pre (mild) Neck: supple, no lymphadenopathy, no JVD Effort: mildly labored Ascultation: Bilateral: clear, diminished breath sounds, rales (R>L), rhonchi, other (referred upper airway sounds) Percussion: Bilateral: not dull Cardiovascular: regular rate and rhythm, other (S1,S2) Gastrointestinal: normoactive bowel sounds, soft, non-tender, non-distended, other (+ PEG) Integumentary: normal Extremities: no cyanosis, pulses normal, no ischemia or petechiae, edema (2+ bilateral upper extremities) Neurologic: normal mental status, non-focal exam (grossly), pupils equal and round, other (appropriate non verbal responses to questions) Psychiatric: anxious CBC and BMP: 05/07/22 04:15 05/07/22 04:15 ABG, PT/INR, D-dimer: ABG ABG pH 7.417 pH Units (7.350-7.450) 05/06/22 04:45 ABG pCO2 41.1 mm Hg 05/06/22 04:45 ABG pO2 112.7 mm Hg (80.0-90.0) H 05/06/22 04:45 ABG O2 Saturation 98.1 % (95.0-99.0) 05/06/22 04:45 PT/INR, D-dimer PT 17.6 Sec. (12.2-14.9) H 05/04/22 04:26 INR 1.29 (0.87-1.13) H 05/04/22 04:26 Abnormal lab findings: Abnormal Labs 04/19/22 04/19/22 04/19/22 04:53 04:53 04:53 WBC RBC 3.06 L Hgb 8.6 L Hct 28.0 L RDW 16.3 H Plt Count [place] % (Auto) 11.3 H Lymph # (Auto) Seg Neuts % (Manual) Lymphocytes % (Manual) Nucleated RBC % Seg Neutrophils # Man Lymphocytes # (Manual) PT INR APTT Heparin Anti-Xa Level ABG pH ABG pO2 ABG HCO3 ABG Base Excess ABG Hemoglobin Oxyhemoglobin Sodium Potassium 5.1 H Chloride Carbon Dioxide 21 L BUN 94 H Creatinine 6.3 H Glucose POC Glucose Phosphorus Magnesium Troponin T 0.415 H* Albumin 2.7 L Free T4 0.28 L Crossmatch 04/19/22 04/19/22 04/20/22 19:40 19:40 05:30 WBC 4.1 L RBC 2.97 L Hgb 8.5 L 8.2 L Hct 27.8 L 27.1 L RDW 17.0 H Plt Count [place] % (Auto) 15.2 H Lymph # (Auto) 1.1 L Seg Neuts % (Manual) Lymphocytes % (Manual) Nucleated RBC % Seg Neutrophils # Man Lymphocytes # (Manual) PT 17.9 H INR 1.28 H APTT 199.1 H* Heparin Anti-Xa Level ABG pH ABG pO2 ABG HCO3 ABG Base Excess ABG Hemoglobin Oxyhemoglobin Sodium Potassium Chloride Carbon Dioxide BUN Creatinine Glucose POC Glucose Phosphorus Magnesium Troponin T Albumin Free T4 Crossmatch 04/20/22 04/20/22 04/21/22 05:30 18:23 00:29 WBC RBC Hgb Hct RDW Plt Count [place] % (Auto) Lymph # (Auto) Seg Neuts % (Manual) Lymphocytes % (Manual) Nucleated RBC % Seg Neutrophils # Man Lymphocytes # (Manual) PT INR APTT Heparin Anti-Xa Level 0.17 L ABG pH ABG pO2 ABG HCO3 ABG Base Excess ABG Hemoglobin Oxyhemoglobin Sodium Potassium Chloride Carbon Dioxide 21 L BUN 95 H Creatinine 6.6 H Glucose 139 H POC Glucose Phosphorus Magnesium 2.60 H Troponin T Albumin 2.4 L Free T4 Crossmatch 04/21/22 04/21/22 04/22/22 04:00 04:00 03:45 WBC RBC 2.74 L Hgb 7.7 L Hct 24.7 L RDW 16.6 H Plt Count [place] % (Auto) Lymph # (Auto) Seg Neuts % (Manual) Lymphocytes % (Manual) Nucleated RBC % Seg Neutrophils # Man Lymphocytes # (Manual) PT INR APTT Heparin Anti-Xa Level < 0.10 L ABG pH ABG pO2 ABG HCO3 ABG Base Excess ABG Hemoglobin Oxyhemoglobin Sodium 133 L Potassium Chloride Carbon Dioxide 20 L BUN 89 H Creatinine 6.6 H Glucose 131 H POC Glucose Phosphorus 6.40 H Magnesium 2.50 H Troponin T Albumin Free T4 Crossmatch 04/22/22 04/22/22 04/22/22 03:45 12:13 14:30 WBC RBC Hgb Hct RDW Plt Count [place] % (Auto) Lymph # (Auto) Seg Neuts % (Manual) Lymphocytes % (Manual) Nucleated RBC % Seg Neutrophils # Man Lymphocytes # (Manual) PT INR APTT Heparin Anti-Xa Level 0.11 L 0.11 L ABG pH ABG pO2 ABG HCO3 ABG Base Excess ABG Hemoglobin Oxyhemoglobin Sodium 136 L Potassium Chloride Carbon Dioxide 18 L BUN 90 H Creatinine 6.3 H Glucose 121 H POC Glucose Phosphorus 6.50 H Magnesium Troponin T Albumin Free T4 Crossmatch 04/22/22 04/23/22 04/23/22 23:08 02:17 04:10 WBC RBC Hgb 7.3 L Hct 23.3 L RDW Plt Count [place] % (Auto) Lymph # (Auto) Seg Neuts % (Manual) Lymphocytes % (Manual) Nucleated RBC % Seg Neutrophils # Man Lymphocytes # (Manual) PT INR APTT Heparin Anti-Xa Level 0.14 L ABG pH ABG pO2 ABG HCO3 ABG Base Excess ABG Hemoglobin Oxyhemoglobin Sodium Potassium Chloride Carbon Dioxide BUN Creatinine Glucose POC Glucose 153 H Phosphorus Magnesium Troponin T Albumin Free T4 Crossmatch 04/23/22 04/23/22 04/23/22 04:10 06:09 23:22 WBC RBC Hgb Hct RDW Plt Count [place] % (Auto) Lymph # (Auto) Seg Neuts % (Manual) Lymphocytes % (Manual) Nucleated RBC % Seg Neutrophils # Man Lymphocytes # (Manual) PT INR APTT Heparin Anti-Xa Level ABG pH ABG pO2 ABG HCO3 ABG Base Excess ABG Hemoglobin Oxyhemoglobin Sodium Potassium Chloride Carbon Dioxide BUN 36 H Creatinine 3.4 H Glucose 131 H POC Glucose 141 H 114 H Phosphorus Magnesium Troponin T Albumin Free T4 Crossmatch 04/24/22 04/24/22 04/24/22 02:10 04:00 04:00 WBC RBC 2.48 L Hgb 7.1 L Hct 22.6 L RDW 16.9 H Plt Count [place] % (Auto) Lymph # (Auto) Seg Neuts % (Manual) Lymphocytes % (Manual) Nucleated RBC % Seg Neutrophils # Man Lymphocytes # (Manual) PT INR APTT Heparin Anti-Xa Level 0.12 L ABG pH ABG pO2 ABG HCO3 ABG Base Excess ABG Hemoglobin Oxyhemoglobin Sodium 134 L Potassium Chloride Carbon Dioxide BUN 42 H Creatinine 3.9 H Glucose 141 H POC Glucose Phosphorus Magnesium Troponin T Albumin Free T4 Crossmatch 04/24/22 04/24/22 04/24/22 05:03 10:20 11:24 WBC RBC Hgb Hct RDW Plt Count [place] % (Auto) Lymph # (Auto) Seg Neuts % (Manual) Lymphocytes % (Manual) Nucleated RBC % Seg Neutrophils # Man Lymphocytes # (Manual) PT INR APTT Heparin Anti-Xa Level < 0.10 L ABG pH ABG pO2 ABG HCO3 ABG Base Excess ABG Hemoglobin Oxyhemoglobin Sodium Potassium Chloride Carbon Dioxide BUN Creatinine Glucose POC Glucose 142 H 144 H Phosphorus Magnesium Troponin T Albumin Free T4 Crossmatch 04/25/22 04/25/22 04/25/22 00:15 04:11 04:11 WBC 4.4 L RBC 2.38 L Hgb 6.7 L Hct 21.7 L RDW 17.2 H Plt Count [place] % (Auto) Lymph # (Auto) Seg Neuts % (Manual) Lymphocytes % (Manual) Nucleated RBC % Seg Neutrophils # Man Lymphocytes # (Manual) PT INR APTT Heparin Anti-Xa Level ABG pH ABG pO2 ABG HCO3 ABG Base Excess ABG Hemoglobin Oxyhemoglobin Sodium 134 L Potassium Chloride 97.1 L Carbon Dioxide BUN 47 H Creatinine 4.3 H Glucose 106 H POC Glucose 136 H Phosphorus Magnesium Troponin T Albumin Free T4 Crossmatch 04/25/22 04/25/22 04/25/22 06:01 15:30 22:44 WBC RBC Hgb 8.8 L Hct 28.1 L D RDW Plt Count [place] % (Auto) Lymph # (Auto) Seg Neuts % (Manual) Lymphocytes % (Manual) Nucleated RBC % Seg Neutrophils # Man Lymphocytes # (Manual) PT INR APTT Heparin Anti-Xa Level ABG pH ABG pO2 ABG HCO3 ABG Base Excess ABG Hemoglobin Oxyhemoglobin Sodium Potassium Chloride Carbon Dioxide BUN Creatinine Glucose POC Glucose 137 H Phosphorus Magnesium Troponin T Albumin Free T4 Crossmatch See Detail 04/26/22 04/27/22 04/27/22 04:20 04:45 04:45 WBC RBC 2.81 L 3.13 L Hgb 8.0 L 9.0 L Hct 25.4 L 29.1 L RDW 16.2 H 17.4 H Plt Count [place] % (Auto) Lymph # (Auto) Seg Neuts % (Manual) Lymphocytes % (Manual) Nucleated RBC % Seg Neutrophils # Man Lymphocytes # (Manual) PT INR APTT Heparin Anti-Xa Level ABG pH ABG pO2 ABG HCO3 ABG Base Excess ABG Hemoglobin Oxyhemoglobin Sodium 131 L Potassium Chloride 93.5 L Carbon Dioxide BUN 44 H Creatinine 3.9 H Glucose 135 H POC Glucose Phosphorus Magnesium Troponin T Albumin Free T4 Crossmatch 04/27/22 04/28/22 04/28/22 23:38 05:26 07:54 WBC 11.1 H RBC 2.40 L Hgb 6.9 L Hct 22.1 L D RDW 17.2 H Plt Count [place] % (Auto) Lymph # (Auto) Seg Neuts % (Manual) Lymphocytes % (Manual) Nucleated RBC % Seg Neutrophils # Man Lymphocytes # (Manual) PT INR APTT Heparin Anti-Xa Level ABG pH ABG pO2 ABG HCO3 ABG Base Excess ABG Hemoglobin Oxyhemoglobin Sodium Potassium Chloride Carbon Dioxide BUN Creatinine Glucose POC Glucose 229 H 169 H Phosphorus Magnesium Troponin T Albumin Free T4 Crossmatch 04/28/22 04/28/22 04/29/22 12:31 17:54 00:49 WBC RBC Hgb Hct RDW Plt Count [place] % (Auto) Lymph # (Auto) Seg Neuts % (Manual) Lymphocytes % (Manual) Nucleated RBC % Seg Neutrophils # Man Lymphocytes # (Manual) PT INR APTT Heparin Anti-Xa Level ABG pH ABG pO2 ABG HCO3 ABG Base Excess ABG Hemoglobin Oxyhemoglobin Sodium Potassium Chloride Carbon Dioxide BUN Creatinine Glucose POC Glucose 132 H 138 H 189 H Phosphorus Magnesium Troponin T Albumin Free T4 Crossmatch 04/29/22 04/29/22 04/29/22 06:42 10:54 10:54 WBC 11.8 H RBC 2.93 L Hgb 8.6 L Hct 26.2 L RDW 16.8 H Plt Count [place] % (Auto) Lymph # (Auto) Seg Neuts % (Manual) Lymphocytes % (Manual) Nucleated RBC % Seg Neutrophils # Man Lymphocytes # (Manual) PT INR APTT Heparin Anti-Xa Level ABG pH ABG pO2 ABG HCO3 ABG Base Excess ABG Hemoglobin Oxyhemoglobin Sodium 129 L Potassium Chloride 91.5 L Carbon Dioxide BUN 46 H Creatinine 3.1 H Glucose 180 H POC Glucose 196 H Phosphorus Magnesium Troponin T Albumin Free T4 Crossmatch 04/29/22 04/29/22 04/30/22 12:03 23:32 05:57 WBC RBC Hgb Hct RDW Plt Count [place] % (Auto) Lymph # (Auto) Seg Neuts % (Manual) Lymphocytes % (Manual) Nucleated RBC % Seg Neutrophils # Man Lymphocytes # (Manual) PT INR APTT Heparin Anti-Xa Level ABG pH ABG pO2 ABG HCO3 ABG Base Excess ABG Hemoglobin Oxyhemoglobin Sodium Potassium Chloride Carbon Dioxide BUN Creatinine Glucose POC Glucose 169 H 170 H 151 H Phosphorus Magnesium Troponin T Albumin Free T4 Crossmatch 04/30/22 04/30/22 04/30/22 11:28 16:39 23:22 WBC RBC Hgb Hct RDW Plt Count [place] % (Auto) Lymph # (Auto) Seg Neuts % (Manual) Lymphocytes % (Manual) Nucleated RBC % Seg Neutrophils # Man Lymphocytes # (Manual) PT INR APTT Heparin Anti-Xa Level ABG pH ABG pO2 ABG HCO3 ABG Base Excess ABG Hemoglobin Oxyhemoglobin Sodium Potassium Chloride Carbon Dioxide BUN Creatinine Glucose POC Glucose 159 H 147 H 170 H Phosphorus Magnesium Troponin T Albumin Free T4 Crossmatch 05/01/22 05/01/22 05/01/22 04:00 05:34 15:23 WBC RBC 2.92 L Hgb 8.4 L Hct 26.7 L RDW 16.6 H Plt Count [place] % (Auto) Lymph # (Auto) Seg Neuts % (Manual) Lymphocytes % (Manual) Nucleated RBC % Seg Neutrophils # Man Lymphocytes # (Manual) PT INR APTT Heparin Anti-Xa Level ABG pH ABG pO2 74.2 L ABG HCO3 27.8 H ABG Base Excess ABG Hemoglobin 8.7 L Oxyhemoglobin 94.5 L Sodium Potassium Chloride Carbon Dioxide BUN Creatinine Glucose POC Glucose 140 H Phosphorus Magnesium Troponin T Albumin Free T4 Crossmatch 05/02/22 05/02/22 05/02/22 05:54 05:54 05:54 WBC RBC 2.85 L Hgb 8.3 L Hct 25.9 L RDW 16.5 H Plt Count [place] % (Auto) Lymph # (Auto) Seg Neuts % (Manual) Lymphocytes % (Manual) Nucleated RBC % Seg Neutrophils # Man Lymphocytes # (Manual) PT INR APTT Heparin Anti-Xa Level ABG pH ABG pO2 ABG HCO3 ABG Base Excess ABG Hemoglobin Oxyhemoglobin Sodium 130 L 128 L Potassium Chloride 90.9 L 90.0 L Carbon Dioxide BUN 49 H 49 H Creatinine 3.7 H 3.8 H Glucose 191 H 184 H POC Glucose Phosphorus Magnesium Troponin T Albumin Free T4 Crossmatch 05/02/22 05/03/22 05/03/22 14:15 04:24 04:24 WBC RBC 2.71 L Hgb 7.8 L Hct 24.8 L RDW 16.6 H Plt Count [place] % (Auto) Lymph # (Auto) Seg Neuts % (Manual) Lymphocytes % (Manual) Nucleated RBC % Seg Neutrophils # Man Lymphocytes # (Manual) PT INR APTT 39.4 H Heparin Anti-Xa Level ABG pH ABG pO2 ABG HCO3 29.1 H ABG Base Excess 4.3 H ABG Hemoglobin 8.4 L Oxyhemoglobin 94.8 L Sodium Potassium Chloride Carbon Dioxide BUN Creatinine Glucose POC Glucose Phosphorus Magnesium Troponin T Albumin Free T4 Crossmatch 05/03/22 05/03/22 05/03/22 04:24 15:17 17:30 WBC RBC Hgb Hct RDW Plt Count [place] % (Auto) Lymph # (Auto) Seg Neuts % (Manual) Lymphocytes % (Manual) Nucleated RBC % Seg Neutrophils # Man Lymphocytes # (Manual) PT INR APTT Heparin Anti-Xa Level ABG pH 7.577 H ABG pO2 140.4 H ABG HCO3 26.4 H ABG Base Excess 4.0 H ABG Hemoglobin 5.4 L Oxyhemoglobin Sodium 132 L Potassium Chloride 93.0 L Carbon Dioxide BUN 31 H Creatinine 2.8 H Glucose 119 H POC Glucose 60 L Phosphorus 2.10 L Magnesium Troponin T Albumin Free T4 Crossmatch 05/03/22 05/04/22 05/04/22 23:33 04:26 04:26 WBC 16.0 H RBC 2.39 L Hgb 6.9 L Hct 21.4 L RDW 15.8 H Plt Count [place] % (Auto) Lymph # (Auto) Seg Neuts % (Manual) Lymphocytes % (Manual) Nucleated RBC % Seg Neutrophils # Man Lymphocytes # (Manual) PT INR APTT Heparin Anti-Xa Level ABG pH ABG pO2 ABG HCO3 ABG Base Excess ABG Hemoglobin Oxyhemoglobin Sodium 133 L Potassium Chloride 94.8 L Carbon Dioxide BUN 34 H Creatinine 3.5 H Glucose 175 H POC Glucose 106 H Phosphorus Magnesium Troponin T Albumin Free T4 Crossmatch 05/04/22 05/04/22 05/04/22 04:26 05:30 05:40 WBC RBC Hgb Hct RDW Plt Count [place] % (Auto) Lymph # (Auto) Seg Neuts % (Manual) Lymphocytes % (Manual) Nucleated RBC % Seg Neutrophils # Man Lymphocytes # (Manual) PT 17.6 H INR 1.29 H APTT Heparin Anti-Xa Level ABG pH 7.547 H ABG pO2 141.7 H ABG HCO3 27.2 H ABG Base Excess 5.3 H ABG Hemoglobin 6.9 L Oxyhemoglobin Sodium Potassium Chloride Carbon Dioxide BUN Creatinine Glucose POC Glucose Phosphorus Magnesium Troponin T Albumin Free T4 Crossmatch See Detail 05/04/22 05/04/22 05/04/22 05:41 12:55 18:10 WBC RBC Hgb Hct RDW Plt Count [place] % (Auto) Lymph # (Auto) Seg Neuts % (Manual) Lymphocytes % (Manual) Nucleated RBC % Seg Neutrophils # Man Lymphocytes # (Manual) PT INR APTT Heparin Anti-Xa Level ABG pH ABG pO2 ABG HCO3 ABG Base Excess ABG Hemoglobin Oxyhemoglobin Sodium Potassium Chloride Carbon Dioxide BUN Creatinine Glucose POC Glucose 177 H 141 H 143 H Phosphorus Magnesium Troponin T Albumin Free T4 Crossmatch 05/05/22 05/05/22 05/05/22 00:05 04:20 04:20 WBC 12.8 H RBC 2.81 L Hgb 8.0 L Hct 24.8 L RDW 16.8 H Plt Count [place] % (Auto) Lymph # (Auto) Seg Neuts % (Manual) 86.0 H Lymphocytes % (Manual) 4.0 L Nucleated RBC % 1.0 H Seg Neutrophils # Man 11.0 H Lymphocytes # (Manual) 0.5 L PT INR APTT Heparin Anti-Xa Level ABG pH ABG pO2 ABG HCO3 ABG Base Excess ABG Hemoglobin Oxyhemoglobin Sodium 130 L Potassium 3.3 L Chloride 94.0 L Carbon Dioxide BUN 24 H Creatinine 2.3 H Glucose 163 H POC Glucose 163 H Phosphorus 1.50 L Magnesium Troponin T Albumin Free T4 Crossmatch 05/05/22 05/05/22 05/05/22 05:18 10:06 12:11 WBC RBC Hgb Hct RDW Plt Count [place] % (Auto) Lymph # (Auto) Seg Neuts % (Manual) Lymphocytes % (Manual) Nucleated RBC % Seg Neutrophils # Man Lymphocytes # (Manual) PT INR APTT Heparin Anti-Xa Level ABG pH ABG pO2 91.7 H ABG HCO3 27.4 H ABG Base Excess ABG Hemoglobin 11.4 L Oxyhemoglobin Sodium Potassium Chloride Carbon Dioxide BUN Creatinine Glucose POC Glucose 163 H 186 H Phosphorus Magnesium Troponin T Albumin Free T4 Crossmatch 05/05/22 05/06/22 05/06/22 16:29 04:45 04:59 WBC RBC Hgb Hct RDW Plt Count [place] % (Auto) Lymph # (Auto) Seg Neuts % (Manual) Lymphocytes % (Manual) Nucleated RBC % Seg Neutrophils # Man Lymphocytes # (Manual) PT INR APTT Heparin Anti-Xa Level ABG pH ABG pO2 112.7 H ABG HCO3 ABG Base Excess ABG Hemoglobin 7.8 L Oxyhemoglobin Sodium Potassium Chloride Carbon Dioxide BUN Creatinine Glucose POC Glucose 170 H 146 H Phosphorus Magnesium Troponin T Albumin Free T4 Crossmatch 05/06/22 05/06/22 05/06/22 05:02 05:02 11:34 WBC RBC 2.78 L Hgb 7.9 L Hct 25.1 L RDW 16.7 H Plt Count 119 L [place] % (Auto) Lymph # (Auto) Seg Neuts % (Manual) Lymphocytes % (Manual) Nucleated RBC % Seg Neutrophils # Man Lymphocytes # (Manual) PT INR APTT Heparin Anti-Xa Level ABG pH ABG pO2 ABG HCO3 ABG Base Excess ABG Hemoglobin Oxyhemoglobin Sodium 135 L Potassium 3.3 L Chloride 97.9 L Carbon Dioxide BUN 30 H Creatinine 2.7 H Glucose 148 H POC Glucose 130 H Phosphorus 1.50 L Magnesium Troponin T Albumin Free T4 Crossmatch 05/06/22 05/06/22 05/07/22 16:48 23:34 04:15 WBC RBC 2.95 L Hgb 8.4 L Hct 26.7 L RDW 16.7 H Plt Count 112 L [place] % (Auto) Lymph # (Auto) Seg Neuts % (Manual) Lymphocytes % (Manual) Nucleated RBC % Seg Neutrophils # Man Lymphocytes # (Manual) PT INR APTT Heparin Anti-Xa Level ABG pH ABG pO2 ABG HCO3 ABG Base Excess ABG Hemoglobin Oxyhemoglobin Sodium Potassium Chloride Carbon Dioxide BUN Creatinine Glucose POC Glucose 121 H 145 H Phosphorus Magnesium Troponin T Albumin Free T4 Crossmatch 05/07/22 05/07/22 04:15 05:26 WBC RBC Hgb Hct RDW Plt Count [place] % (Auto) Lymph # (Auto) Seg Neuts % (Manual) Lymphocytes % (Manual) Nucleated RBC % Seg Neutrophils # Man Lymphocytes # (Manual) PT INR APTT Heparin Anti-Xa Level ABG pH ABG pO2 ABG HCO3 ABG Base Excess ABG Hemoglobin Oxyhemoglobin Sodium 131 L Potassium 3.4 L Chloride 95.3 L Carbon Dioxide BUN 28 H Creatinine 2.5 H Glucose 140 H POC Glucose 136 H Phosphorus 1.20 L Magnesium Troponin T Albumin Free T4 Crossmatch Chest x-ray: image reviewed Allied health notes reviewed: RT
[2022-05-07] MEDS: CEFEPIME/NS 1 GM/100 ML 1 GM/100 ML BAG IV SCH ×2 (16:52→17:11)
--- NOTE | 2022-05-07 19:01 | Progress Note ---
Assessment and Plan Impression: * End stage renal disease * Acute hypoxic respiratory failure * AMS * SVT s/p cardioversion * SIRS * NSTEMI * Shock * Anemia secondary to ESRD * Secondary hyperparathyroidism * IJ thrombus Plan: * Continue hemodialysis // provided patient is hemodynamically stable. * Assess daily for needs for additional sessions * Recommend removal of femoral central line, discussed with nurse at bedside * Vasopressors prn to maintain MAP > 65 * Dose medications for renal function * cardiology/pulmonary notes reviewed, appreciated * appreciate vascular regarding AVG * continue midodrine given soft BP * keep MAP>65, vasopressors prn * Avoid potential nephrotoxins * Epogen TIW prn * Renal/HD diet * Continue binders prn * Thank you for involving us in the care of this patient. We will follow along and make recommendation from renal standpoint. Patient is critically ill and prognosis is guarded. Subjective Date of service: 05/07/22 Principal diagnosis: Neurogenic dysphagia Interval history: Seen in ICU. Remains intubated. On vasopressors. Objective - Exam Narrative Exam: General: Sedated. Intubated. Head: NC/AT Eyes: normal appearance Neck: Normal appearance Chest: Intubated CV: Regular rate and rhythm, right arm dialysis access Abdomen: Soft, normal bowel sounds, nontender, nondistended Neuro: Sedated - Vital Signs Vital signs: Vital Signs - 12hr 05/07/22 05/07/22 05/07/22 07:00 07:15 07:19 Temperature 98.3 F Pulse Rate 104 H 104 H Pulse Rate [ Anterior Bilateral Throughout] Pulse Rate [ Bilateral Dorsalis Pedis] Pulse Rate [ From Monitor] Pulse Rate [ Left Dorsalis Pedis] Pulse Rate [ Left Radial] Pulse Rate [ Right Dorsalis Pedis] Pulse Rate [ Right Radial] Respiratory 14 14 Rate Respiratory Rate [Anterior Bilateral Throughout] Blood Pressure 109/53 114/57 O2 Sat by Pulse 97 97 Oximetry 05/07/22 05/07/22 05/07/22 07:30 07:45 08:00 Temperature 100.1 F H Pulse Rate 101 H 104 H 118 H Pulse Rate [ Anterior Bilateral Throughout] Pulse Rate [ 108 H Bilateral Dorsalis Pedis] Pulse Rate [ 109 H From Monitor] Pulse Rate [ 108 H Left Dorsalis Pedis] Pulse Rate [ 110 H Left Radial] Pulse Rate [ 108 H Right Dorsalis Pedis] Pulse Rate [ 110 H Right Radial] Respiratory 14 14 18 Rate Respiratory Rate [Anterior Bilateral Throughout] Blood Pressure 99/51 160/70 178/67 O2 Sat by Pulse 96 97 90 Oximetry 05/07/22 05/07/22 05/07/22 08:06 08:15 08:30 Temperature Pulse Rate 110 H 112 H 113 H Pulse Rate [ 105 H Anterior Bilateral Throughout] Pulse Rate [ Bilateral Dorsalis Pedis] Pulse Rate [ From Monitor] Pulse Rate [ Left Dorsalis Pedis] Pulse Rate [ Left Radial] Pulse Rate [ Right Dorsalis Pedis] Pulse Rate [ Right Radial] Respiratory 16 15 Rate Respiratory 16 Rate [Anterior Bilateral Throughout] Blood Pressure 178/67 161/83 147/70 O2 Sat by Pulse 96 93 97 Oximetry 05/07/22 05/07/22 05/07/22 08:45 09:00 09:15 Temperature Pulse Rate 110 H 109 H 110 H Pulse Rate [ Anterior Bilateral Throughout] Pulse Rate [ Bilateral Dorsalis Pedis] Pulse Rate [ From Monitor] Pulse Rate [ Left Dorsalis Pedis] Pulse Rate [ Left Radial] Pulse Rate [ Right Dorsalis Pedis] Pulse Rate [ Right Radial] Respiratory 19 15 17 Rate Respiratory Rate [Anterior Bilateral Throughout] Blood Pressure 140/65 136/66 151/67 O2 Sat by Pulse 97 95 94 Oximetry 05/07/22 05/07/22 05/07/22 09:30 09:45 10:01 Temperature Pulse Rate 112 H 112 H 109 H Pulse Rate [ Anterior Bilateral Throughout] Pulse Rate [ Bilateral Dorsalis Pedis] Pulse Rate [ From Monitor] Pulse Rate [ Left Dorsalis Pedis] Pulse Rate [ Left Radial] Pulse Rate [ Right Dorsalis Pedis] Pulse Rate [ Right Radial] Respiratory 23 14 18 Rate Respiratory Rate [Anterior Bilateral Throughout] Blood Pressure 136/73 151/59 150/85 O2 Sat by Pulse 93 93 96 Oximetry 05/07/22 05/07/22 05/07/22 10:15 10:30 10:45 Temperature Pulse Rate 112 H 110 H 117 H Pulse Rate [ Anterior Bilateral Throughout] Pulse Rate [ Bilateral Dorsalis Pedis] Pulse Rate [ From Monitor] Pulse Rate [ Left Dorsalis Pedis] Pulse Rate [ Left Radial] Pulse Rate [ Right Dorsalis Pedis] Pulse Rate [ Right Radial] Respiratory 22 17 17 Rate Respiratory Rate [Anterior Bilateral Throughout] Blood Pressure 132/63 133/64 133/64 O2 Sat by Pulse 95 96 92 Oximetry 08/21/22 08/21/22 08/21/22 11:00 11:15 11:31 Temperature Pulse Rate 104 H 103 H 102 H Pulse Rate [ Anterior Bilateral Throughout] Pulse Rate [ Bilateral Dorsalis Pedis] Pulse Rate [ From Monitor] Pulse Rate [ Left Dorsalis Pedis] Pulse Rate [ Left Radial] Pulse Rate [ Right Dorsalis Pedis] Pulse Rate [ Right Radial] Respiratory 12 32 H 19 Rate Respiratory Rate [Anterior Bilateral Throughout] Blood Pressure 128/62 134/65 137/39 O2 Sat by Pulse 96 96 94 Oximetry 05/07/22 05/07/22 05/07/22 11:37 11:45 12:00 Temperature 98.5 F 99.3 F Pulse Rate 102 H 103 H Pulse Rate [ Anterior Bilateral Throughout] Pulse Rate [ 102 H Bilateral Dorsalis Pedis] Pulse Rate [ 103 H From Monitor] Pulse Rate [ Left Dorsalis Pedis] Pulse Rate [ Left Radial] Pulse Rate [ Right Dorsalis Pedis] Pulse Rate [ Right Radial] Respiratory 20 14 Rate Respiratory Rate [Anterior Bilateral Throughout] Blood Pressure 141/57 158/82 O2 Sat by Pulse 97 96 Oximetry 05/07/22 05/07/22 05/07/22 12:01 12:15 12:30 Temperature Pulse Rate 104 H 107 H 103 H Pulse Rate [ Anterior Bilateral Throughout] Pulse Rate [ Bilateral Dorsalis Pedis] Pulse Rate [ From Monitor] Pulse Rate [ Left Dorsalis Pedis] Pulse Rate [ Left Radial] Pulse Rate [ Right Dorsalis Pedis] Pulse Rate [ Right Radial] Respiratory 18 17 13 Rate Respiratory Rate [Anterior Bilateral Throughout] Blood Pressure 131/56 156/68 132/55 O2 Sat by Pulse 96 95 96 Oximetry 05/07/22 05/07/22 05/07/22 12:43 12:45 13:01 Temperature Pulse Rate 114 H 112 H 115 H Pulse Rate [ Anterior Bilateral Throughout] Pulse Rate [ Bilateral Dorsalis Pedis] Pulse Rate [ From Monitor] Pulse Rate [ Left Dorsalis Pedis] Pulse Rate [ Left Radial] Pulse Rate [ Right Dorsalis Pedis] Pulse Rate [ Right Radial] Respiratory 21 14 26 H Rate Respiratory Rate [Anterior Bilateral Throughout] Blood Pressure 132/55 159/89 158/82 O2 Sat by Pulse 94 94 93 Oximetry 05/07/22 05/07/22 05/07/22 13:15 13:30 13:45 Temperature Pulse Rate 119 H 115 H 114 H Pulse Rate [ Anterior Bilateral Throughout] Pulse Rate [ Bilateral Dorsalis Pedis] Pulse Rate [ From Monitor] Pulse Rate [ Left Dorsalis Pedis] Pulse Rate [ Left Radial] Pulse Rate [ Right Dorsalis Pedis] Pulse Rate [ Right Radial] Respiratory 21 24 14 Rate Respiratory Rate [Anterior Bilateral Throughout] Blood Pressure 161/81 133/73 151/76 O2 Sat by Pulse 92 92 90 Oximetry 05/07/22 05/07/22 05/07/22 14:00 14:15 14:30 Temperature Pulse Rate 111 H 112 H 114 H Pulse Rate [ Anterior Bilateral Throughout] Pulse Rate [ Bilateral Dorsalis Pedis] Pulse Rate [ From Monitor] Pulse Rate [ Left Dorsalis Pedis] Pulse Rate [ Left Radial] Pulse Rate [ Right Dorsalis Pedis] Pulse Rate [ Right Radial] Respiratory 27 H 19 29 H Rate Respiratory Rate [Anterior Bilateral Throughout] Blood Pressure 148/67 152/74 173/69 O2 Sat by Pulse 93 92 94 Oximetry 05/07/22 05/07/22 05/07/22 14:35 14:45 15:00 Temperature Pulse Rate 113 H 115 H Pulse Rate [ 112 H Anterior Bilateral Throughout] Pulse Rate [ Bilateral Dorsalis Pedis] Pulse Rate [ From Monitor] Pulse Rate [ Left Dorsalis Pedis] Pulse Rate [ Left Radial] Pulse Rate [ Right Dorsalis Pedis] Pulse Rate [ Right Radial] Respiratory 20 20 Rate Respiratory 25 H Rate [Anterior Bilateral Throughout] Blood Pressure 139/51 158/69 O2 Sat by Pulse 95 94 Oximetry 05/07/22 05/07/22 05/07/22 15:15 15:30 15:45 Temperature Pulse Rate 110 H 107 H 107 H Pulse Rate [ Anterior Bilateral Throughout] Pulse Rate [ Bilateral Dorsalis Pedis] Pulse Rate [ From Monitor] Pulse Rate [ Left Dorsalis Pedis] Pulse Rate [ Left Radial] Pulse Rate [ Right Dorsalis Pedis] Pulse Rate [ Right Radial] Respiratory 25 H 24 22 Rate Respiratory Rate [Anterior Bilateral Throughout] Blood Pressure 137/55 157/72 157/66 O2 Sat by Pulse 93 94 93 Oximetry 05/07/22 05/07/22 05/07/22 16:00 16:15 16:20 Temperature 98.5 F Pulse Rate 106 H 105 H 111 H Pulse Rate [ Anterior Bilateral Throughout] Pulse Rate [ 106 H Bilateral Dorsalis Pedis] Pulse Rate [ 106 H From Monitor] Pulse Rate [ Left Dorsalis Pedis] Pulse Rate [ Left Radial] Pulse Rate [ Right Dorsalis Pedis] Pulse Rate [ Right Radial] Respiratory 25 H 28 H Rate Respiratory Rate [Anterior Bilateral Throughout] Blood Pressure 168/68 147/62 147/62 O2 Sat by Pulse 95 93 94 Oximetry 05/07/22 05/07/22 16:30 18:15 Temperature 98.0 F Pulse Rate 110 H Pulse Rate [ Anterior Bilateral Throughout] Pulse Rate [ Bilateral Dorsalis Pedis] Pulse Rate [ From Monitor] Pulse Rate [ Left Dorsalis Pedis] Pulse Rate [ Left Radial] Pulse Rate [ Right Dorsalis Pedis] Pulse Rate [ Right Radial] Respiratory 24 Rate Respiratory Rate [Anterior Bilateral Throughout] Blood Pressure 131/71 O2 Sat by Pulse 95 Oximetry - Lab 05/07/22 04:15 05/07/22 04:15 Most recent lab results ABG pH 7.417 pH Units (7.350-7.450) 05/06/22 04:45 ABG pCO2 41.1 mm Hg 05/06/22 04:45 ABG pO2 112.7 mm Hg (80.0-90.0) H 05/06/22 04:45 ABG HCO3 25.9 mmol/L (20.0-26.0) 05/06/22 04:45 ABG O2 Saturation 98.1 % (95.0-99.0) 05/06/22 04:45 Calcium 8.9 mg/dL (8.4-10.2) 05/07/22 04:15 Phosphorus 1.20 mg/dL (2.5-4.5) L 05/07/22 04:15 Magnesium 1.70 mg/dL (1.7-2.3) 05/07/22 04:15 Medications & Allergies - Medications Allergies/Adverse Reactions: Allergies buspirone [From BuSpar] Allergy (Verified 04/18/22 12:22) Unknown Penicillins Allergy (Verified 04/18/22 12:22) Rash corn Adverse Reaction (Verified 04/18/22 12:22) Unknown Home Medications: Home Medications Medication Instructions Recorded Confirmed Last Taken Type Sevelamer Carbonate [Renvela] 0.8 gram PO TIDWM 09/02/20 02/02/22 05/31/21 History HYDROcodone/APAP 5-325 [[place] 1 each PO Q4HR PRN #30 tablet 05/18/21 02/02/22 Unknown Rx 5-325 mg TAB] ALBUTEROL NEB's [Proventil 0.083% 2.5 mg IH Q3HRT PRN #1 nebu 03/03/22 Unknown Rx NEBS] Clopidogrel [Plavix] 75 mg PO QDAY #90 tablet 03/03/[address] [Depakote Dr] 750 mg PO BID #60 tablet 03/03/22 Unknown Rx LORazepam [Ativan] 1 mg PO DAILY #30 tab 03/03/22 Unknown Rx Memantine Xr [Namenda Xr] 5 mg PO DAILY #30 cap 03/03/22 Unknown Rx Midodrine [Proamatine] 10 mg PO TID #90 tab 03/03/22 Unknown Rx Pantoprazole [Protonix TAB] 40 mg PO DAILY #30 tab 03/03/22 Unknown Rx QUEtiapine [SEROquel] 400 mg PO BID #60 tab 03/03/22 Unknown Rx risperiDONE [RisperDAL] 0.5 mg PO BID #60 tab 03/03/22 Unknown Rx Active Medications: Generic Name Dose Route Start Last Admin Trade Name Freq PRN Reason Stop Dose Admin Acetaminophen 650 mg 04/22/22 20:12 05/03/22 23:41 Acetaminophen 325 Mg/10.15 Ml Oral Liqd Unit Dose PO 650 mg Q6H PRN Administration Pain MILD(1-3)/Fever >100.5/DRAKE Acetylcysteine 200 mg 05/05/22 14:00 05/07/22 14:35 Acetylcysteine 20% 200 Mg/1 Ml *For Inhalation Use* INHALATION 05/10/22 13:59 200 mg TID CONNOR Administration Albumin Human 25 gm 04/21/22 13:00 04/22/22 16:31 Albumin Human 25% (25 Gm/100 Ml) Inj IV 25 gm BIANCA PRN Administration Hypotension Albuterol 2.5 mg 04/21/22 08:30 04/24/22 16:51 Albuterol 2.5 Mg/3 Ml Nebu IH 2.5 mg Q3HRT PRN Administration Shortness Of Breath Albuterol/Ipratropium 1 ampul 04/21/22 14:00 05/07/22 14:35 Ipratropium/Albuterol Sulfate 3 Ml Ampul.Neb IH 1 ampul TIDRT CONNOR Administration Docusate Sodium 100 mg 05/01/22 22:00 05/07/22 09:43 Docusate Sodium 100 Mg/10 Ml Oral Liqd FEEDTUBE 100 mg BID CONNOR Administration Epoetin Lb-epbx 20,000 unit 04/23/22 12:00 05/06/22 19:23 Epoetin Lb-Epbx 20,000 Unit/1 Ml Vial IV 20,000 unit BIANCA PRN Administration HEMODIALYSIS Fentanyl 50 mcg 05/03/22 10:29 05/05/22 12:23 Fentanyl 100 Mcg/2 Ml Inj IV 25 mcg Q10MIN PRN Administration ANALGESIA Sodium Chloride 100 mls @ 999 mls/hr 04/22/22 09:12 Nacl 0.9% IV BIANCA PRN Hypotension Fentanyl Citrate 2,000 mcg in 100 mls @ 2.722 mls/hr 05/03/22 11:00 Fentanyl Drip Premix IV TITR CONNOR Protocol 1 MCG/KG/HR NORepinephrine/NS 8 MG-250 ML 8 mg in 250 mls @ 3.75 mls/hr 05/03/22 13:15 05/06/22 10:06 Norepinephrine/Ns 8 Mg-250 Ml (Double Conc) IV 0 mcg/min TITRATE CONNOR 0 mls/hr Titration Protocol 2 MCG/MIN Vasopressin 20 unit/ Sodium 101 mls @ 9.09 mls/hr 05/04/22 00:30 05/06/22 11:21 Chloride IV 0 units/min TITR CONNOR 0 mls/hr Infusion 0.03 UNITS/MIN Cefepime HCl 1 gm in 100 mls @ 200 mls/hr 05/04/22 18:00 05/07/22 17:11 Cefepime/Ns 1 Gm/100 Ml IV 200 mls/hr QPM CONNOR Administration Protocol Lansoprazole 30 mg 04/23/22 10:00 05/07/22 09:43 Lansoprazole 30 Mg Solutab FEEDTUBE 30 mg QDAY CONNOR Administration Lorazepam 0.5 mg 04/25/22 09:59 Lorazepam 0.5 Mg Tab FEEDTUBE QDAY PRN Anxiety Memantine 5 mg 04/25/22 10:00 05/07/22 10:41 Memantine 5 Mg Tab FEEDTUBE 5 mg BID CONNOR Administration Metoclopramide HCl 5 mg 04/19/22 09:55 Metoclopramide 10 Mg/2 Ml Inj IV Q6H PRN Nausea And Vomiting Midodrine 20 mg 04/26/22 14:00 05/07/22 14:00 Midodrine 10 Mg Tab FEEDTUBE Not Given TID CONNOR Naloxone HCl 0.1 mg 04/19/22 09:55 Naloxone 0.4 Mg/1 Ml Inj IV Q2MIN PRN Res Rate </= 8 or 02 SAT < 92% Polyethylene Glycol 17 gm 05/03/22 10:00 05/07/22 09:43 Polyethylene Glycol 3350 17 Gm Powder FEEDTUBE 17 gm QDAY CONNOR Administration Risperidone 0.5 mg 04/25/22 11:00 05/07/22 09:43 Risperidone 1 Mg Tab FEEDTUBE 0.5 mg BID CONNOR Administration Scopolamine 1 each 05/02/22 10:00 05/05/22 09:45 Scopolamine Transdermal Patch 72 Hr TD 1 each Q3D CONNOR Administration Senna 17.2 mg 04/23/22 10:00 05/07/22 09:43 Sennosides 8.6 Mg Tab FEEDTUBE 17.2 mg BID CONNOR Administration Sodium Chloride 10 ml 04/19/22 12:00 05/07/22 16:52 Sodium Chloride 0.9% 10 Ml Flush Syringe IV Not Given BID CONNOR Sodium Chloride 10 ml 04/19/22 11:19 Sodium Chloride 0.9% 10 Ml Flush Syringe IV PRN PRN LINE FLUSH Sodium Phosphate 250 mg 05/07/22 10:00 05/07/22 18:03 K-Phos Neutral 250 Mg Tab PO 05/07/22 22:01 250 mg QID CONNOR Administration Valproic Acid 750 mg 04/22/22 22:00 05/07/22 09:43 Valproic Acid 250 Mg/5 Ml Oral Liqd FEEDTUBE 750 mg BID CONNOR Administration
--- NOTE | 2022-05-08 04:07 | XRay Report ---
CHEST 1 VIEW INDICATION / CLINICAL INFORMATION: follow up respiratory failure. COMPARISON: Chest x-ray 05/07/2022 FINDINGS: SUPPORT DEVICES: Stable, satisfactory device positioning. HEART / MEDIASTINUM: Heart size is within normal limits. Mediastinal contour demonstrates no signific ant abnormality. LUNGS / PLEURA: Small right pleural effusion stable. Bilateral mid and lower lung opacities remain mo re prevalent on the right, stable. Blunting left costophrenic angle minimally improved. BONES: No significant osseous abnormality. ADDITIONAL FINDINGS: No significant additional findings. IMPRESSION: 1. Stable small right pleural effusion. 2. Minimal interval change in bilateral lung opacities. Signer Name: Darshan Mancilla II, MD Signed: 05/08/2022 4:02 AM Workstation Name: [id number]
[2022-05-08 04:59] LABS: Hematocrit 25.8 % (30.3-42.9); Hemoglobin 8.2 gm/dl (10.1-14.3); Mean Corpuscular HGB Conc 32 % (30-34); Mean Corpuscular Volume 90 fl (79-97); Platelet Count 118 K/mm3 (140-440); Red Blood Count 2.87 M/mm3 (3.65-5.03); Red Cell Distribution Width 16.2 % (13.2-15.2)
[2022-05-08 05:29] LABS: Calcium 8.9 mg/dL (8.4-10.2)
[2022-05-08 05:44] LABS: ABG Base Excess 2.3 mmol/L (-2.0-3.0); ABG HCO3 25.8 mmol/L (20.0-26.0); ABG Methemoglobin 0.2 % (0.0-1.5); ABG PCO2 35.2 mm Hg; ABG PH 7.482 pH Units (7.350-7.450); ABG PO2 103.9 mm Hg (80.0-90.0)
[2022-05-08] MEDS: ACETYLCYSTEINE 20% 200 MG/1 ML *FOR INHALATION USE INHALATION SCH ×3 (09:15→19:30)
[2022-05-08] MEDS: IPRATROPIUM/ALBUTEROL SULFATE 3 ML AMPUL.NEB IH SCH ×3 (09:15→19:30)
--- NOTE | 2022-05-08 09:46 | Progress Note ---
Assessment and Plan Impression: * End stage renal disease * AMS * SVT s/p cardioversion * IJ thrombus * NSTEMI * SIRS * Hypotension * Anemia secondary to ESRD * Secondary hyperparathyroidism Plan: * No acute need for HD today * Continue HD TTS schedule * UF as tolerated * Midodrine TID * Maintain MAP>65, vasopressors prn * Avoid potential nephrotoxins * Epogen TIW prn * Nutrition via PEG * Dose medications for renal function Subjective Date of service: 05/08/22 Principal diagnosis: Neurogenic dysphagia Interval history: No acute events overnight. Objective - Vital Signs Vital signs: Vital Signs - 12hr 05/07/22 05/07/22 05/07/22 22:01 22:13 22:15 Temperature Pulse Rate 101 H 98 H 96 H Pulse Rate [ From Monitor] Respiratory 14 14 14 Rate Blood Pressure 111/44 111/44 131/50 O2 Sat by Pulse 96 98 97 Oximetry 05/07/22 05/07/22 05/07/22 22:30 22:45 23:00 Temperature Pulse Rate 96 H 95 H 92 H Pulse Rate [ From Monitor] Respiratory 14 14 14 Rate Blood Pressure 146/44 103/45 92/44 O2 Sat by Pulse 98 98 99 Oximetry 05/07/22 05/07/22 05/07/22 23:15 23:30 23:45 Temperature Pulse Rate 104 H 95 H 95 H Pulse Rate [ From Monitor] Respiratory 15 14 14 Rate Blood Pressure 135/59 118/48 123/43 O2 Sat by Pulse 97 99 99 Oximetry 05/08/22 05/08/22 05/08/22 00:00 00:09 00:15 Temperature 99 F Pulse Rate 96 H 96 H 101 H Pulse Rate [ From Monitor] Respiratory 15 17 Rate Blood Pressure 128/54 146/50 O2 Sat by Pulse 98 96 Oximetry 05/08/22 05/08/22 05/08/22 00:30 00:45 01:00 Temperature Pulse Rate 98 H 96 H 98 H Pulse Rate [ From Monitor] Respiratory 14 14 14 Rate Blood Pressure 119/46 128/54 118/46 O2 Sat by Pulse 99 99 98 Oximetry 05/08/22 05/08/22 05/08/22 01:15 01:30 01:45 Temperature Pulse Rate 97 H 95 H 95 H Pulse Rate [ From Monitor] Respiratory 14 14 14 Rate Blood Pressure 121/47 134/56 119/56 O2 Sat by Pulse 99 98 97 Oximetry 05/08/22 05/08/22 05/08/22 02:00 02:15 02:31 Temperature Pulse Rate 93 H 95 H 94 H Pulse Rate [ From Monitor] Respiratory 14 14 17 Rate Blood Pressure 124/43 121/44 130/46 O2 Sat by Pulse 98 98 97 Oximetry 05/08/22 05/08/22 05/08/22 02:45 03:01 03:15 Temperature Pulse Rate 94 H 102 H 107 H Pulse Rate [ From Monitor] Respiratory 14 18 15 Rate Blood Pressure 122/45 133/49 125/54 O2 Sat by Pulse 97 98 96 Oximetry 05/08/22 05/08/22 05/08/22 03:28 03:30 03:33 Temperature 99.4 F Pulse Rate 108 H 110 H Pulse Rate [ From Monitor] Respiratory 18 Rate Blood Pressure 133/62 O2 Sat by Pulse 95 97 Oximetry 05/08/22 05/08/22 05/08/22 03:45 04:00 04:15 Temperature Pulse Rate 113 H 109 H 110 H Pulse Rate [ From Monitor] Respiratory 18 14 16 Rate Blood Pressure 137/53 132/57 124/62 O2 Sat by Pulse 95 96 96 Oximetry 05/08/22 05/08/22 05/08/22 04:30 04:45 05:00 Temperature Pulse Rate 105 H 106 H 102 H Pulse Rate [ From Monitor] Respiratory 14 15 14 Rate Blood Pressure 122/52 117/58 106/52 O2 Sat by Pulse 96 97 98 Oximetry 05/08/22 05/08/22 05/08/22 05:15 05:30 05:45 Temperature Pulse Rate 108 H 107 H 102 H Pulse Rate [ From Monitor] Respiratory 14 15 14 Rate Blood Pressure 119/59 119/59 98/54 O2 Sat by Pulse 96 99 99 Oximetry 05/08/22 05/08/22 05/08/22 06:00 06:15 06:30 Temperature Pulse Rate 99 H 94 H 96 H Pulse Rate [ From Monitor] Respiratory 14 14 14 Rate Blood Pressure 99/45 117/63 110/50 O2 Sat by Pulse 100 99 99 Oximetry 05/08/22 05/08/22 05/08/22 06:45 07:00 07:15 Temperature Pulse Rate 95 H 97 H 90 Pulse Rate [ From Monitor] Respiratory 14 14 14 Rate Blood Pressure 104/43 94/52 99/48 O2 Sat by Pulse 100 100 100 Oximetry 05/08/22 05/08/22 05/08/22 07:16 07:30 07:45 Temperature 97.8 F Pulse Rate 94 H 100 H Pulse Rate [ From Monitor] Respiratory 14 14 Rate Blood Pressure 107/50 114/83 O2 Sat by Pulse 99 99 Oximetry 05/08/22 05/08/22 05/08/22 07:56 07:58 08:01 Temperature Pulse Rate 101 H 103 H Pulse Rate [ 103 H From Monitor] Respiratory 13 Rate Blood Pressure 109/56 O2 Sat by Pulse 98 98 Oximetry 05/08/22 05/08/22 05/08/22 08:15 08:30 08:45 Temperature Pulse Rate 104 H 106 H 107 H Pulse Rate [ From Monitor] Respiratory 13 12 17 Rate Blood Pressure 101/65 103/77 124/59 O2 Sat by Pulse 98 98 97 Oximetry 05/08/22 09:01 Temperature Pulse Rate 106 H Pulse Rate [ From Monitor] Respiratory 12 Rate Blood Pressure 113/60 O2 Sat by Pulse 97 Oximetry - General Appearance General appearance: well-developed, well-nourished, intubated EENT: other (ETT in place) Respiratory: Present: Other (coarse breath sounds) Cardiology: regular, S1S2 Gastrointestinal: no distended Integumentary: warm and dry Neurologic: other (alert, awake) Musculoskeletal: other (bilateral upper extremity edema) Psychiatric: cooperative - Lab 05/09/22 04:25 05/09/22 04:25 Most recent lab results ABG pH 7.482 pH Units (7.350-7.450) H 05/08/22 04:40 ABG pCO2 35.2 mm Hg 05/08/22 04:40 ABG pO2 103.9 mm Hg (80.0-90.0) H 05/08/22 04:40 ABG HCO3 25.8 mmol/L (20.0-26.0) 05/08/22 04:40 ABG O2 Saturation 98.0 % (95.0-99.0) 05/08/22 04:40 Calcium 8.9 mg/dL (8.4-10.2) 05/08/22 04:06 Phosphorus 2.00 mg/dL (2.5-4.5) L D 05/08/22 04:06 Magnesium 1.80 mg/dL (1.7-2.3) 05/08/22 04:06 Medications & Allergies - Medications Allergies/Adverse Reactions: Allergies buspirone [From BuSpar] Allergy (Verified 04/18/22 12:22) Unknown Penicillins Allergy (Verified 04/18/22 12:22) Rash corn Adverse Reaction (Verified 04/18/22 12:22) Unknown Home Medications: Home Medications Medication Instructions Recorded Confirmed Last Taken Type Sevelamer Carbonate [Renvela] 0.8 gram PO TIDWM 09/02/20 02/02/22 05/31/21 History HYDROcodone/APAP 5-325 [[place] 1 each PO Q4HR PRN #30 tablet 05/18/21 02/02/22 Unknown Rx 5-325 mg TAB] ALBUTEROL NEB's [Proventil 0.083% 2.5 mg IH Q3HRT PRN #1 nebu 03/03/22 Unknown Rx NEBS] Clopidogrel [Plavix] 75 mg PO QDAY #90 tablet 03/03/22 Unknown Rx Divalproex [Sarina Serrano] 750 mg PO BID #60 tablet 03/03/22 Unknown Rx LORazepam [Ativan] 1 mg PO DAILY #30 tab 03/03/22 Unknown Rx Memantine Xr [Namenda Xr] 5 mg PO DAILY #30 cap 03/03/22 Unknown Rx Midodrine [Proamatine] 10 mg PO TID #90 tab 03/03/22 Unknown Rx Pantoprazole [Protonix TAB] 40 mg PO DAILY #30 tab 03/03/22 Unknown Rx QUEtiapine [SEROquel] 400 mg PO BID #60 tab 03/03/22 Unknown Rx risperiDONE [RisperDAL] 0.5 mg PO BID #60 tab 03/03/22 Unknown Rx Active Medications: Generic Name Dose Route Start Last Admin Trade Name Freq PRN Reason Stop Dose Admin Acetaminophen 650 mg 04/22/22 20:12 05/03/22 23:41 Acetaminophen 325 Mg/10.15 Ml Oral Liqd Unit Dose PO 650 mg Q6H PRN Administration Pain MILD(1-3)/Fever >100.5/DRAKE Acetylcysteine 200 mg 05/05/22 14:00 05/08/22 09:15 Acetylcysteine 20% 200 Mg/1 Ml *For Inhalation Use* INHALATION 05/10/22 13:59 200 mg TID CONNOR Administration Albumin Human 25 gm 04/21/22 13:00 04/22/22 16:31 Albumin Human 25% (25 Gm/100 Ml) Inj IV 25 gm BIANCA PRN Administration Hypotension Albuterol 2.5 mg 04/21/22 08:30 04/24/22 16:51 Albuterol 2.5 Mg/3 Ml Nebu IH 2.5 mg Q3HRT PRN Administration Shortness Of Breath Albuterol/Ipratropium 1 ampul 04/21/22 14:00 05/08/22 09:15 Ipratropium/Albuterol Sulfate 3 Ml Ampul.Neb IH 1 ampul TIDRT CONNOR Administration Docusate Sodium 100 mg 05/01/22 22:00 05/07/22 21:01 Docusate Sodium 100 Mg/10 Ml Oral Liqd FEEDTUBE Not Given BID CONNOR Epoetin Bl-epbx 20,000 unit 04/23/22 12:00 05/06/22 19:23 Epoetin Lb-Epbx 20,000 Unit/1 Ml Vial IV 20,000 unit BIANCA PRN Administration HEMODIALYSIS Fentanyl 50 mcg 05/03/22 10:29 05/05/22 12:23 Fentanyl 100 Mcg/2 Ml Inj IV 25 mcg Q10MIN PRN Administration ANALGESIA Sodium Chloride 100 mls @ 999 mls/hr 04/22/22 09:12 Nacl 0.9% IV BIANCA PRN Hypotension Fentanyl Citrate 2,000 mcg in 100 mls @ 2.722 mls/hr 05/03/22 11:00 Fentanyl Drip Premix IV TITR CONNOR Protocol 1 MCG/KG/HR NORepinephrine/NS 8 MG-250 ML 8 mg in 250 mls @ 3.75 mls/hr 05/03/22 13:15 05/06/22 10:06 Norepinephrine/Ns 8 Mg-250 Ml (Double Conc) IV 0 mcg/min TITRATE CONNOR 0 mls/hr Titration Protocol 2 MCG/MIN Vasopressin 20 unit/ Sodium 101 mls @ 9.09 mls/hr 05/04/22 00:30 05/06/22 11:21 Chloride IV 0 units/min TITR CONNOR 0 mls/hr Infusion 0.03 UNITS/MIN Cefepime HCl 1 gm in 100 mls @ 200 mls/hr 05/04/22 18:00 05/07/22 17:11 Cefepime/Ns 1 Gm/100 Ml IV 200 mls/hr QPM CONNOR Administration Protocol Lansoprazole 30 mg 04/23/22 10:00 05/07/22 09:43 Lansoprazole 30 Mg Solutab FEEDTUBE 30 mg QDAY CONNOR Administration Lorazepam 0.5 mg 04/25/22 09:59 Lorazepam 0.5 Mg Tab FEEDTUBE QDAY PRN Anxiety Memantine 5 mg 04/25/22 10:00 05/07/22 21:04 Memantine 5 Mg Tab FEEDTUBE 5 mg BID CONNOR Administration Metoclopramide HCl 5 mg 04/19/22 09:55 Metoclopramide 10 Mg/2 Ml Inj IV Q6H PRN Nausea And Vomiting Midodrine 20 mg 04/26/22 14:00 05/07/22 21:03 Midodrine 10 Mg Tab FEEDTUBE 20 mg TID CONNOR Administration Naloxone HCl 0.1 mg 04/19/22 09:55 Naloxone 0.4 Mg/1 Ml Inj IV Q2MIN PRN Res Rate </= 8 or 02 SAT < 92% Polyethylene Glycol 17 gm 05/03/22 10:00 05/07/22 09:43 Polyethylene Glycol 3350 17 Gm Powder FEEDTUBE 17 gm QDAY CONNOR Administration Risperidone 0.5 mg 04/25/22 11:00 05/07/22 21:05 Risperidone 1 Mg Tab FEEDTUBE 0.5 mg BID CONNOR Administration Scopolamine 1 each 05/02/22 10:00 05/05/22 09:45 Scopolamine Transdermal Patch 72 Hr TD 1 each Q3D CONNOR Administration Senna 17.2 mg 04/23/22 10:00 05/07/22 21:01 Sennosides 8.6 Mg Tab FEEDTUBE Not Given BID CONNOR Sodium Chloride 10 ml 04/19/22 12:00 05/07/22 21:05 Sodium Chloride 0.9% 10 Ml Flush Syringe IV 10 ml BID CONNOR Administration Sodium Chloride 10 ml 04/19/22 11:19 Sodium Chloride 0.9% 10 Ml Flush Syringe IV PRN PRN LINE FLUSH Sodium Phosphate 250 mg 05/08/22 10:00 K-Phos Neutral 250 Mg Tab FEEDTUBE 05/09/22 09:59 QID CONNOR Valproic Acid 750 mg 04/22/22 22:00 05/07/22 21:04 Valproic Acid 250 Mg/5 Ml Oral Liqd FEEDTUBE 750 mg BID CONNOR Administration
[2022-05-08] MEDS: K-PHOS NEUTRAL 250 MG TAB PO SCH (10:55)
[2022-05-08] MEDS: MEMANTINE 5 MG TAB FEEDTUBE SCH ×2 (10:57→20:59)
[2022-05-08] MEDS: K-PHOS NEUTRAL 250 MG TAB FEEDTUBE SCH ×4 (10:57→20:59)
[2022-05-08] MEDS: MIDODRINE 10 MG TAB FEEDTUBE SCH ×3 (10:59→20:58)
[2022-05-08] MEDS: VALPROIC ACID 250 MG/5 ML ORAL LIQD FEEDTUBE SCH ×2 (10:59→20:59)
[2022-05-08] MEDS: LANSOPRAZOLE 30 MG SOLUTAB FEEDTUBE SCH (10:59)
[2022-05-08] MEDS: risperiDONE 1 MG TAB FEEDTUBE SCH ×2 (11:00→20:59)
[2022-05-08] MEDS: SCOPOLAMINE TRANSDERMAL PATCH 72 HR TD SCH (11:01)
[2022-05-08] MEDS: SENNOSIDES 8.6 MG TAB FEEDTUBE SCH ×2 (11:27→20:59)
[2022-05-08] MEDS: DOCUSATE SODIUM 100 MG/10 ML ORAL LIQD FEEDTUBE SCH ×2 (11:27→20:59)
[2022-05-08] MEDS: POLYETHYLENE GLYCOL 3350 17 GM POWDER FEEDTUBE SCH (11:27)
--- NOTE | 2022-05-08 11:29 | Progress Note ---
Assessment and Plan Acute hypoxemic respiratory failure, Acute on Chronic Hypotension Acute on Chronic Metabolic Encephalopathy Possible Shock Syndrome SVT Elevated troponin, Bipolar disorder, Schizophrenia, Hyperkalemia ESRD on hemodialysis, Anemia of chronic disease, Type 2 NSTEMI GERD Subclinical Hypothyroidism Moderate protein caloric malnutrition - KCL 20 meq p.o. X 1 - LTAC evaluation - get CT chest to bettter evaluate for atelectasis / consolidation / effusions and address - RT to reduce set rate to 12/min and begin SBT (P-supp of 18 tolerated) - ABG at 9 pm tonight - continue chest PT by RT - complete Mucomyst course - continue Vancomycin (de-escalate per ID recommendations) - prn Levophed for target MAP > 65 mmHg while septic - may ultimately need a tracheostomy if fails weaning trials - LTAC evaluation is appropriate - continue care as below otherwise; - continue Daily SAT and SBT assessment as tolerated - sedation prn for target RASS 0 to -1 - VAP bundle addressed - continue lung protective strategies - continue bronchodilators with pulmonary hygiene per RT - wean per pulmonary driven protocols otherwise - enteral nutrition at goal rate as tolerated - continue Midodrine for BP support - femoral CVL in place as no other viable site for access - Albumin 25 gms of 25% solution prn with dialysis - continue HD/UF per nephrology prescription for toxin and volume clearance - continue accuchecks with glycemic control per SSI (While critically ill target blood glucose of 140-180 mg/dL; avoid hypoglycemia) - continue supplemental oxygen for target O2 sat's > 90% acutely - avoid nephrotoxins, renally dose all medications - continue to avoid benzodiazepine's, reduce the possibility of delirium - prn analgesia per CPOT score - Maintenance of sleep-wake cycle, avoid delirium - G.I. & VTE prophylaxis - PT/OT/ROM exercises - continue mobility protocols for pressure ulcer prophylaxis - Monitor hemodynamics closely - continue other care per attending / other consultants - discharge planning ongoing concurrently .... Re-evaluate in am & prn CONDITION: CRITICAL PROGNOSIS: GUARDED CODE STATUS: FULL CODE The high probability of a clinically significant, sudden or life-threatening deterioration of the [respiratory, cardiovascular, renal & neurologic] system(s) required my full and direct attention, intervention and personal management. The aggregate critical care time was [33] minutes without overlap. Time includes spent on; [x] Data Review and interpretation [x] Patient assessment and monitoring of vital signs [x] Documentation [x] Medication orders and management Subjective Date of service: 05/08/22 Principal diagnosis: AHRF; Shock; AMS; SVT; NSTEMI; ESRD; Protein calorie malnutrition Interval history: Patient is seen today for: Acute hypoxemic respiratory failure; Shock / Hypotension; AMS; SVT; NSTEMI; Schizophrenia; ESRD on Dialysis; Moderate protein caloric malnutrition Seen and examined at bedside; 24hour events reviewed; nursing and respiratory care staff consulted; no adverse overnight events reported to me; resting in bed; remains on MVS but off vasopressors X > 48 hours; denies acute chest pain; No N/V/F/C; on Vancomycin for MRSA pneumonia / Sepsis Objective Vital Signs - 12hr 05/07/22 05/07/22 05/08/22 23:30 23:45 00:00 Temperature 99 F Pulse Rate 95 H 95 H 96 H Pulse Rate [ Anterior Bilateral Throughout] Pulse Rate [ From Monitor] Respiratory 14 14 15 Rate Respiratory Rate [Anterior Bilateral Throughout] Blood Pressure 118/48 123/43 128/54 O2 Sat by Pulse 99 99 98 Oximetry 05/08/22 05/08/22 05/08/22 00:09 00:15 00:30 Temperature Pulse Rate 96 H 101 H 98 H Pulse Rate [ Anterior Bilateral Throughout] Pulse Rate [ From Monitor] Respiratory 17 14 Rate Respiratory Rate [Anterior Bilateral Throughout] Blood Pressure 146/50 119/46 O2 Sat by Pulse 96 99 Oximetry 05/08/22 05/08/22 05/08/22 00:45 01:00 01:15 Temperature Pulse Rate 96 H 98 H 97 H Pulse Rate [ Anterior Bilateral Throughout] Pulse Rate [ From Monitor] Respiratory 14 14 14 Rate Respiratory Rate [Anterior Bilateral Throughout] Blood Pressure 128/54 118/46 121/47 O2 Sat by Pulse 99 98 99 Oximetry 05/08/22 05/08/22 05/08/22 01:30 01:45 02:00 Temperature Pulse Rate 95 H 95 H 93 H Pulse Rate [ Anterior Bilateral Throughout] Pulse Rate [ From Monitor] Respiratory 14 14 14 Rate Respiratory Rate [Anterior Bilateral Throughout] Blood Pressure 134/56 119/56 124/43 O2 Sat by Pulse 98 97 98 Oximetry 05/08/22 05/08/22 05/08/22 02:15 02:31 02:45 Temperature Pulse Rate 95 H 94 H 94 H Pulse Rate [ Anterior Bilateral Throughout] Pulse Rate [ From Monitor] Respiratory 14 17 14 Rate Respiratory Rate [Anterior Bilateral Throughout] Blood Pressure 121/44 130/46 122/45 O2 Sat by Pulse 98 97 97 Oximetry 05/08/22 05/08/22 05/08/22 03:01 03:15 03:28 Temperature Pulse Rate 102 H 107 H 108 H Pulse Rate [ Anterior Bilateral Throughout] Pulse Rate [ From Monitor] Respiratory 18 15 Rate Respiratory Rate [Anterior Bilateral Throughout] Blood Pressure 133/49 125/54 O2 Sat by Pulse 98 96 95 Oximetry 05/08/22 05/08/22 05/08/22 03:30 03:33 03:45 Temperature 99.4 F Pulse Rate 110 H 113 H Pulse Rate [ Anterior Bilateral Throughout] Pulse Rate [ From Monitor] Respiratory 18 18 Rate Respiratory Rate [Anterior Bilateral Throughout] Blood Pressure 133/62 137/53 O2 Sat by Pulse 97 95 Oximetry 05/08/22 05/08/22 05/08/22 04:00 04:15 04:30 Temperature Pulse Rate 109 H 110 H 105 H Pulse Rate [ Anterior Bilateral Throughout] Pulse Rate [ From Monitor] Respiratory 14 16 14 Rate Respiratory Rate [Anterior Bilateral Throughout] Blood Pressure 132/57 124/62 122/52 O2 Sat by Pulse 96 96 96 Oximetry 05/08/22 05/08/22 05/08/22 04:45 05:00 05:15 Temperature Pulse Rate 106 H 102 H 108 H Pulse Rate [ Anterior Bilateral Throughout] Pulse Rate [ From Monitor] Respiratory 15 14 14 Rate Respiratory Rate [Anterior Bilateral Throughout] Blood Pressure 117/58 106/52 119/59 O2 Sat by Pulse 97 98 96 Oximetry 05/08/22 05/08/22 05/08/22 05:30 05:45 06:00 Temperature Pulse Rate 107 H 102 H 99 H Pulse Rate [ Anterior Bilateral Throughout] Pulse Rate [ From Monitor] Respiratory 15 14 14 Rate Respiratory Rate [Anterior Bilateral Throughout] Blood Pressure 119/59 98/54 99/45 O2 Sat by Pulse 99 99 100 Oximetry 05/08/22 05/08/22 05/08/22 06:15 06:30 06:45 Temperature Pulse Rate 94 H 96 H 95 H Pulse Rate [ Anterior Bilateral Throughout] Pulse Rate [ From Monitor] Respiratory 14 14 14 Rate Respiratory Rate [Anterior Bilateral Throughout] Blood Pressure 117/63 110/50 104/43 O2 Sat by Pulse 99 99 100 Oximetry 05/08/22 05/08/22 05/08/22 07:00 07:15 07:16 Temperature 97.8 F Pulse Rate 97 H 90 Pulse Rate [ Anterior Bilateral Throughout] Pulse Rate [ From Monitor] Respiratory 14 14 Rate Respiratory Rate [Anterior Bilateral Throughout] Blood Pressure 94/52 99/48 O2 Sat by Pulse 100 100 Oximetry 05/08/22 05/08/22 05/08/22 07:30 07:45 07:56 Temperature Pulse Rate 94 H 100 H 101 H Pulse Rate [ Anterior Bilateral Throughout] Pulse Rate [ From Monitor] Respiratory 14 14 Rate Respiratory Rate [Anterior Bilateral Throughout] Blood Pressure 107/50 114/83 O2 Sat by Pulse 99 99 Oximetry 05/08/22 05/08/22 05/08/22 07:58 08:01 08:15 Temperature Pulse Rate 103 H 104 H Pulse Rate [ Anterior Bilateral Throughout] Pulse Rate [ 103 H From Monitor] Respiratory 13 13 Rate Respiratory Rate [Anterior Bilateral Throughout] Blood Pressure 109/56 101/65 O2 Sat by Pulse 98 98 98 Oximetry 05/08/22 05/08/22 05/08/22 08:30 08:45 09:00 Temperature Pulse Rate 106 H 107 H 102 H Pulse Rate [ 108 H Anterior Bilateral Throughout] Pulse Rate [ From Monitor] Respiratory 12 17 Rate Respiratory 16 Rate [Anterior Bilateral Throughout] Blood Pressure 103/77 124/59 110/50 O2 Sat by Pulse 98 97 97 Oximetry 05/08/22 05/08/22 05/08/22 09:01 09:15 09:31 Temperature Pulse Rate 106 H 102 H 103 H Pulse Rate [ Anterior Bilateral Throughout] Pulse Rate [ From Monitor] Respiratory 12 13 19 Rate Respiratory Rate [Anterior Bilateral Throughout] Blood Pressure 113/60 110/50 119/59 O2 Sat by Pulse 97 97 99 Oximetry 05/08/22 05/08/22 05/08/22 09:45 10:01 10:15 Temperature Pulse Rate 101 H 101 H 103 H Pulse Rate [ Anterior Bilateral Throughout] Pulse Rate [ From Monitor] Respiratory 14 11 L 11 L Rate Respiratory Rate [Anterior Bilateral Throughout] Blood Pressure 126/45 123/54 121/52 O2 Sat by Pulse 98 98 97 Oximetry 05/08/22 05/08/22 05/08/22 10:30 10:45 11:00 Temperature Pulse Rate 102 H 101 H 103 H Pulse Rate [ Anterior Bilateral Throughout] Pulse Rate [ From Monitor] Respiratory 15 11 L 11 L Rate Respiratory Rate [Anterior Bilateral Throughout] Blood Pressure 117/61 126/57 138/57 O2 Sat by Pulse 98 97 97 Oximetry 05/08/22 11:15 Temperature Pulse Rate 104 H Pulse Rate [ Anterior Bilateral Throughout] Pulse Rate [ From Monitor] Respiratory 12 Rate Respiratory Rate [Anterior Bilateral Throughout] Blood Pressure 114/44 O2 Sat by Pulse 99 Oximetry Constitutional: no acute distress, alert, other (eldely female with mildly increased respiratory effort at rest on MVS) Eyes: non-icteric ENT: oropharynx moist, other (ETT 24 cm LAURA) Neck: supple, no lymphadenopathy, no JVD Effort: mildly labored Ascultation: Bilateral: diminished breath sounds, rales, other (referred upper airway sounds) Percussion: Bilateral: not dull Cardiovascular: regular rate and rhythm, other (S1,S2) Gastrointestinal: normoactive bowel sounds, soft, non-tender, non-distended, other (+ PEG) Integumentary: normal Extremities: no cyanosis, pulses normal, no ischemia or petechiae, edema (1+ bilaterally) Neurologic: normal mental status, non-focal exam (grossly), pupils equal and round, other (appropriate non verbal responses to questions) Psychiatric: mood appropriate, affect normal CBC and BMP: 05/08/22 04:06 05/08/22 04:06 ABG, PT/INR, D-dimer: ABG ABG pH 7.482 pH Units (7.350-7.450) H 05/08/22 04:40 ABG pCO2 35.2 mm Hg 05/08/22 04:40 ABG pO2 103.9 mm Hg (80.0-90.0) H 05/08/22 04:40 ABG O2 Saturation 98.0 % (95.0-99.0) 05/08/22 04:40 PT/INR, D-dimer PT 17.6 Sec. (12.2-14.9) H 05/04/22 04:26 INR 1.29 (0.87-1.13) H 05/04/22 04:26 Abnormal lab findings: Abnormal Labs 04/19/22 04/19/22 04/19/22 04:53 04:53 04:53 WBC RBC 3.06 L Hgb 8.6 L Hct 28.0 L RDW 16.3 H Plt Count [place] % (Auto) 11.3 H Lymph # (Auto) Seg Neuts % (Manual) Lymphocytes % (Manual) Nucleated RBC % Seg Neutrophils # Man Lymphocytes # (Manual) PT INR APTT Heparin Anti-Xa Level ABG pH ABG pO2 ABG HCO3 ABG Base Excess ABG Hemoglobin Oxyhemoglobin Sodium Potassium 5.1 H Chloride Carbon Dioxide 21 L BUN 94 H Creatinine 6.3 H Glucose POC Glucose Phosphorus Magnesium Troponin T 0.415 H* Albumin 2.7 L Free T4 0.28 L Crossmatch 04/19/22 04/19/22 04/20/22 19:40 19:40 05:30 WBC 4.1 L RBC 2.97 L Hgb 8.5 L 8.2 L Hct 27.8 L 27.1 L RDW 17.0 H Plt Count [place] % (Auto) 15.2 H Lymph # (Auto) 1.1 L Seg Neuts % (Manual) Lymphocytes % (Manual) Nucleated RBC % Seg Neutrophils # Man Lymphocytes # (Manual) PT 17.9 H INR 1.28 H APTT 199.1 H* Heparin Anti-Xa Level ABG pH ABG pO2 ABG HCO3 ABG Base Excess ABG Hemoglobin Oxyhemoglobin Sodium Potassium Chloride Carbon Dioxide BUN Creatinine Glucose POC Glucose Phosphorus Magnesium Troponin T Albumin Free T4 Crossmatch 04/20/22 04/20/22 04/21/22 05:30 18:23 00:29 WBC RBC Hgb Hct RDW Plt Count [place] % (Auto) Lymph # (Auto) Seg Neuts % (Manual) Lymphocytes % (Manual) Nucleated RBC % Seg Neutrophils # Man Lymphocytes # (Manual) PT INR APTT Heparin Anti-Xa Level 0.17 L ABG pH ABG pO2 ABG HCO3 ABG Base Excess ABG Hemoglobin Oxyhemoglobin Sodium Potassium Chloride Carbon Dioxide 21 L BUN 95 H Creatinine 6.6 H Glucose 139 H POC Glucose Phosphorus Magnesium 2.60 H Troponin T Albumin 2.4 L Free T4 Crossmatch 04/21/22 04/21/22 04/22/22 04:00 04:00 03:45 WBC RBC 2.74 L Hgb 7.7 L Hct 24.7 L RDW 16.6 H Plt Count [place] % (Auto) Lymph # (Auto) Seg Neuts % (Manual) Lymphocytes % (Manual) Nucleated RBC % Seg Neutrophils # Man Lymphocytes # (Manual) PT INR APTT Heparin Anti-Xa Level < 0.10 L ABG pH ABG pO2 ABG HCO3 ABG Base Excess ABG Hemoglobin Oxyhemoglobin Sodium 133 L Potassium Chloride Carbon Dioxide 20 L BUN 89 H Creatinine 6.6 H Glucose 131 H POC Glucose Phosphorus 6.40 H Magnesium 2.50 H Troponin T Albumin Free T4 Crossmatch 04/22/22 04/22/22 04/22/22 03:45 12:13 14:30 WBC RBC Hgb Hct RDW Plt Count [place] % (Auto) Lymph # (Auto) Seg Neuts % (Manual) Lymphocytes % (Manual) Nucleated RBC % Seg Neutrophils # Man Lymphocytes # (Manual) PT INR APTT Heparin Anti-Xa Level 0.11 L 0.11 L ABG pH ABG pO2 ABG HCO3 ABG Base Excess ABG Hemoglobin Oxyhemoglobin Sodium 136 L Potassium Chloride Carbon Dioxide 18 L BUN 90 H Creatinine 6.3 H Glucose 121 H POC Glucose Phosphorus 6.50 H Magnesium Troponin T Albumin Free T4 Crossmatch 04/22/22 04/23/22 04/23/22 23:08 02:17 04:10 WBC RBC Hgb 7.3 L Hct 23.3 L RDW Plt Count [place] % (Auto) Lymph # (Auto) Seg Neuts % (Manual) Lymphocytes % (Manual) Nucleated RBC % Seg Neutrophils # Man Lymphocytes # (Manual) PT INR APTT Heparin Anti-Xa Level 0.14 L ABG pH ABG pO2 ABG HCO3 ABG Base Excess ABG Hemoglobin Oxyhemoglobin Sodium Potassium Chloride Carbon Dioxide BUN Creatinine Glucose POC Glucose 153 H Phosphorus Magnesium Troponin T Albumin Free T4 Crossmatch 04/23/22 04/23/22 04/23/22 04:10 06:09 23:22 WBC RBC Hgb Hct RDW Plt Count [place] % (Auto) Lymph # (Auto) Seg Neuts % (Manual) Lymphocytes % (Manual) Nucleated RBC % Seg Neutrophils # Man Lymphocytes # (Manual) PT INR APTT Heparin Anti-Xa Level ABG pH ABG pO2 ABG HCO3 ABG Base Excess ABG Hemoglobin Oxyhemoglobin Sodium Potassium Chloride Carbon Dioxide BUN 36 H Creatinine 3.4 H Glucose 131 H POC Glucose 141 H 114 H Phosphorus Magnesium Troponin T Albumin Free T4 Crossmatch 04/24/22 04/24/22 04/24/22 02:10 04:00 04:00 WBC RBC 2.48 L Hgb 7.1 L Hct 22.6 L RDW 16.9 H Plt Count [place] % (Auto) Lymph # (Auto) Seg Neuts % (Manual) Lymphocytes % (Manual) Nucleated RBC % Seg Neutrophils # Man Lymphocytes # (Manual) PT INR APTT Heparin Anti-Xa Level 0.12 L ABG pH ABG pO2 ABG HCO3 ABG Base Excess ABG Hemoglobin Oxyhemoglobin Sodium 134 L Potassium Chloride Carbon Dioxide BUN 42 H Creatinine 3.9 H Glucose 141 H POC Glucose Phosphorus Magnesium Troponin T Albumin Free T4 Crossmatch 04/24/22 04/24/22 04/24/22 05:03 10:20 11:24 WBC RBC Hgb Hct RDW Plt Count [place] % (Auto) Lymph # (Auto) Seg Neuts % (Manual) Lymphocytes % (Manual) Nucleated RBC % Seg Neutrophils # Man Lymphocytes # (Manual) PT INR APTT Heparin Anti-Xa Level < 0.10 L ABG pH ABG pO2 ABG HCO3 ABG Base Excess ABG Hemoglobin Oxyhemoglobin Sodium Potassium Chloride Carbon Dioxide BUN Creatinine Glucose POC Glucose 142 H 144 H Phosphorus Magnesium Troponin T Albumin Free T4 Crossmatch 04/25/22 04/25/22 04/25/22 00:15 04:11 04:11 WBC 4.4 L RBC 2.38 L Hgb 6.7 L Hct 21.7 L RDW 17.2 H Plt Count [place] % (Auto) Lymph # (Auto) Seg Neuts % (Manual) Lymphocytes % (Manual) Nucleated RBC % Seg Neutrophils # Man Lymphocytes # (Manual) PT INR APTT Heparin Anti-Xa Level ABG pH ABG pO2 ABG HCO3 ABG Base Excess ABG Hemoglobin Oxyhemoglobin Sodium 134 L Potassium Chloride 97.1 L Carbon Dioxide BUN 47 H Creatinine 4.3 H Glucose 106 H POC Glucose 136 H Phosphorus Magnesium Troponin T Albumin Free T4 Crossmatch 04/25/22 04/25/22 04/25/22 06:01 15:30 22:44 WBC RBC Hgb 8.8 L Hct 28.1 L D RDW Plt Count [place] % (Auto) Lymph # (Auto) Seg Neuts % (Manual) Lymphocytes % (Manual) Nucleated RBC % Seg Neutrophils # Man Lymphocytes # (Manual) PT INR APTT Heparin Anti-Xa Level ABG pH ABG pO2 ABG HCO3 ABG Base Excess ABG Hemoglobin Oxyhemoglobin Sodium Potassium Chloride Carbon Dioxide BUN Creatinine Glucose POC Glucose 137 H Phosphorus Magnesium Troponin T Albumin Free T4 Crossmatch See Detail 04/26/22 04/27/22 04/27/22 04:20 04:45 04:45 WBC RBC 2.81 L 3.13 L Hgb 8.0 L 9.0 L Hct 25.4 L 29.1 L RDW 16.2 H 17.4 H Plt Count [place] % (Auto) Lymph # (Auto) Seg Neuts % (Manual) Lymphocytes % (Manual) Nucleated RBC % Seg Neutrophils # Man Lymphocytes # (Manual) PT INR APTT Heparin Anti-Xa Level ABG pH ABG pO2 ABG HCO3 ABG Base Excess ABG Hemoglobin Oxyhemoglobin Sodium 131 L Potassium Chloride 93.5 L Carbon Dioxide BUN 44 H Creatinine 3.9 H Glucose 135 H POC Glucose Phosphorus Magnesium Troponin T Albumin Free T4 Crossmatch 04/27/22 04/28/22 04/28/22 23:38 05:26 07:54 WBC 11.1 H RBC 2.40 L Hgb 6.9 L Hct 22.1 L D RDW 17.2 H Plt Count [place] % (Auto) Lymph # (Auto) Seg Neuts % (Manual) Lymphocytes % (Manual) Nucleated RBC % Seg Neutrophils # Man Lymphocytes # (Manual) PT INR APTT Heparin Anti-Xa Level ABG pH ABG pO2 ABG HCO3 ABG Base Excess ABG Hemoglobin Oxyhemoglobin Sodium Potassium Chloride Carbon Dioxide BUN Creatinine Glucose POC Glucose 229 H 169 H Phosphorus Magnesium Troponin T Albumin Free T4 Crossmatch 04/28/22 04/28/22 04/29/22 12:31 17:54 00:49 WBC RBC Hgb Hct RDW Plt Count [place] % (Auto) Lymph # (Auto) Seg Neuts % (Manual) Lymphocytes % (Manual) Nucleated RBC % Seg Neutrophils # Man Lymphocytes # (Manual) PT INR APTT Heparin Anti-Xa Level ABG pH ABG pO2 ABG HCO3 ABG Base Excess ABG Hemoglobin Oxyhemoglobin Sodium Potassium Chloride Carbon Dioxide BUN Creatinine Glucose POC Glucose 132 H 138 H 189 H Phosphorus Magnesium Troponin T Albumin Free T4 Crossmatch 04/29/22 04/29/22 04/29/22 06:42 10:54 10:54 WBC 11.8 H RBC 2.93 L Hgb 8.6 L Hct 26.2 L RDW 16.8 H Plt Count [place] % (Auto) Lymph # (Auto) Seg Neuts % (Manual) Lymphocytes % (Manual) Nucleated RBC % Seg Neutrophils # Man Lymphocytes # (Manual) PT INR APTT Heparin Anti-Xa Level ABG pH ABG pO2 ABG HCO3 ABG Base Excess ABG Hemoglobin Oxyhemoglobin Sodium 129 L Potassium Chloride 91.5 L Carbon Dioxide BUN 46 H Creatinine 3.1 H Glucose 180 H POC Glucose 196 H Phosphorus Magnesium Troponin T Albumin Free T4 Crossmatch 04/29/22 04/29/22 04/30/22 12:03 23:32 05:57 WBC RBC Hgb Hct RDW Plt Count [place] % (Auto) Lymph # (Auto) Seg Neuts % (Manual) Lymphocytes % (Manual) Nucleated RBC % Seg Neutrophils # Man Lymphocytes # (Manual) PT INR APTT Heparin Anti-Xa Level ABG pH ABG pO2 ABG HCO3 ABG Base Excess ABG Hemoglobin Oxyhemoglobin Sodium Potassium Chloride Carbon Dioxide BUN Creatinine Glucose POC Glucose 169 H 170 H 151 H Phosphorus Magnesium Troponin T Albumin Free T4 Crossmatch 04/30/22 04/30/22 04/30/22 11:28 16:39 23:22 WBC RBC Hgb Hct RDW Plt Count [place] % (Auto) Lymph # (Auto) Seg Neuts % (Manual) Lymphocytes % (Manual) Nucleated RBC % Seg Neutrophils # Man Lymphocytes # (Manual) PT INR APTT Heparin Anti-Xa Level ABG pH ABG pO2 ABG HCO3 ABG Base Excess ABG Hemoglobin Oxyhemoglobin Sodium Potassium Chloride Carbon Dioxide BUN Creatinine Glucose POC Glucose 159 H 147 H 170 H Phosphorus Magnesium Troponin T Albumin Free T4 Crossmatch 05/01/22 05/01/22 05/01/22 04:00 05:34 15:23 WBC RBC 2.92 L Hgb 8.4 L Hct 26.7 L RDW 16.6 H Plt Count [place] % (Auto) Lymph # (Auto) Seg Neuts % (Manual) Lymphocytes % (Manual) Nucleated RBC % Seg Neutrophils # Man Lymphocytes # (Manual) PT INR APTT Heparin Anti-Xa Level ABG pH ABG pO2 74.2 L ABG HCO3 27.8 H ABG Base Excess ABG Hemoglobin 8.7 L Oxyhemoglobin 94.5 L Sodium Potassium Chloride Carbon Dioxide BUN Creatinine Glucose POC Glucose 140 H Phosphorus Magnesium Troponin T Albumin Free T4 Crossmatch 05/02/22 05/02/2222 05:54 05:54 05:54 WBC RBC 2.85 L Hgb 8.3 L Hct 25.9 L RDW 16.5 H Plt Count [place] % (Auto) Lymph # (Auto) Seg Neuts % (Manual) Lymphocytes % (Manual) Nucleated RBC % Seg Neutrophils # Man Lymphocytes # (Manual) PT INR APTT Heparin Anti-Xa Level ABG pH ABG pO2 ABG HCO3 ABG Base Excess ABG Hemoglobin Oxyhemoglobin Sodium 130 L 128 L Potassium Chloride 90.9 L 90.0 L Carbon Dioxide BUN 49 H 49 H Creatinine 3.7 H 3.8 H Glucose 191 H 184 H POC Glucose Phosphorus Magnesium Troponin T Albumin Free T4 Crossmatch 05/02/22 05/03/22 05/03/22 14:15 04:24 04:24 WBC RBC 2.71 L Hgb 7.8 L Hct 24.8 L RDW 16.6 H Plt Count [place] % (Auto) Lymph # (Auto) Seg Neuts % (Manual) Lymphocytes % (Manual) Nucleated RBC % Seg Neutrophils # Man Lymphocytes # (Manual) PT INR APTT 39.4 H Heparin Anti-Xa Level ABG pH ABG pO2 ABG HCO3 29.1 H ABG Base Excess 4.3 H ABG Hemoglobin 8.4 L Oxyhemoglobin 94.8 L Sodium Potassium Chloride Carbon Dioxide BUN Creatinine Glucose POC Glucose Phosphorus Magnesium Troponin T Albumin Free T4 Crossmatch 05/03/22 05/03/22 05/03/22 04:24 15:17 17:30 WBC RBC Hgb Hct RDW Plt Count [place] % (Auto) Lymph # (Auto) Seg Neuts % (Manual) Lymphocytes % (Manual) Nucleated RBC % Seg Neutrophils # Man Lymphocytes # (Manual) PT INR APTT Heparin Anti-Xa Level ABG pH 7.577 H ABG pO2 140.4 H ABG HCO3 26.4 H ABG Base Excess 4.0 H ABG Hemoglobin 5.4 L Oxyhemoglobin Sodium 132 L Potassium Chloride 93.0 L Carbon Dioxide BUN 31 H Creatinine 2.8 H Glucose 119 H POC Glucose 60 L Phosphorus 2.10 L Magnesium Troponin T Albumin Free T4 Crossmatch 05/03/22 05/04/22 05/04/22 23:33 04:26 04:26 WBC 16.0 H RBC 2.39 L Hgb 6.9 L Hct 21.4 L RDW 15.8 H Plt Count [place] % (Auto) Lymph # (Auto) Seg Neuts % (Manual) Lymphocytes % (Manual) Nucleated RBC % Seg Neutrophils # Man Lymphocytes # (Manual) PT INR APTT Heparin Anti-Xa Level ABG pH ABG pO2 ABG HCO3 ABG Base Excess ABG Hemoglobin Oxyhemoglobin Sodium 133 L Potassium Chloride 94.8 L Carbon Dioxide BUN 34 H Creatinine 3.5 H Glucose 175 H POC Glucose 106 H Phosphorus Magnesium Troponin T Albumin Free T4 Crossmatch 05/04/22 05/04/22 05/04/22 04:26 05:30 05:40 WBC RBC Hgb Hct RDW Plt Count [place] % (Auto) Lymph # (Auto) Seg Neuts % (Manual) Lymphocytes % (Manual) Nucleated RBC % Seg Neutrophils # Man Lymphocytes # (Manual) PT 17.6 H INR 1.29 H APTT Heparin Anti-Xa Level ABG pH 7.547 H ABG pO2 141.7 H ABG HCO3 27.2 H ABG Base Excess 5.3 H ABG Hemoglobin 6.9 L Oxyhemoglobin Sodium Potassium Chloride Carbon Dioxide BUN Creatinine Glucose POC Glucose Phosphorus Magnesium Troponin T Albumin Free T4 Crossmatch See Detail 05/04/22 05/04/22 05/04/22 05:41 12:55 18:10 WBC RBC Hgb Hct RDW Plt Count [place] % (Auto) Lymph # (Auto) Seg Neuts % (Manual) Lymphocytes % (Manual) Nucleated RBC % Seg Neutrophils # Man Lymphocytes # (Manual) PT INR APTT Heparin Anti-Xa Level ABG pH ABG pO2 ABG HCO3 ABG Base Excess ABG Hemoglobin Oxyhemoglobin Sodium Potassium Chloride Carbon Dioxide BUN Creatinine Glucose POC Glucose 177 H 141 H 143 H Phosphorus Magnesium Troponin T Albumin Free T4 Crossmatch 05/05/22 05/05/22 05/05/22 00:05 04:20 04:20 WBC 12.8 H RBC 2.81 L Hgb 8.0 L Hct 24.8 L RDW 16.8 H Plt Count [place] % (Auto) Lymph # (Auto) Seg Neuts % (Manual) 86.0 H Lymphocytes % (Manual) 4.0 L Nucleated RBC % 1.0 H Seg Neutrophils # Man 11.0 H Lymphocytes # (Manual) 0.5 L PT INR APTT Heparin Anti-Xa Level ABG pH ABG pO2 ABG HCO3 ABG Base Excess ABG Hemoglobin Oxyhemoglobin Sodium 130 L Potassium 3.3 L Chloride 94.0 L Carbon Dioxide BUN 24 H Creatinine 2.3 H Glucose 163 H POC Glucose 163 H Phosphorus 1.50 L Magnesium Troponin T Albumin Free T4 Crossmatch 05/05/22 05/05/22 05/05/22 05:18 10:06 12:11 WBC RBC Hgb Hct RDW Plt Count [place] % (Auto) Lymph # (Auto) Seg Neuts % (Manual) Lymphocytes % (Manual) Nucleated RBC % Seg Neutrophils # Man Lymphocytes # (Manual) PT INR APTT Heparin Anti-Xa Level ABG pH ABG pO2 91.7 H ABG HCO3 27.4 H ABG Base Excess ABG Hemoglobin 11.4 L Oxyhemoglobin Sodium Potassium Chloride Carbon Dioxide BUN Creatinine Glucose POC Glucose 163 H 186 H Phosphorus Magnesium Troponin T Albumin Free T4 Crossmatch 05/05/22 05/06/22 05/06/22 16:29 04:45 04:59 WBC RBC Hgb Hct RDW Plt Count [place] % (Auto) Lymph # (Auto) Seg Neuts % (Manual) Lymphocytes % (Manual) Nucleated RBC % Seg Neutrophils # Man Lymphocytes # (Manual) PT INR APTT Heparin Anti-Xa Level ABG pH ABG pO2 112.7 H ABG HCO3 ABG Base Excess ABG Hemoglobin 7.8 L Oxyhemoglobin Sodium Potassium Chloride Carbon Dioxide BUN Creatinine Glucose POC Glucose 170 H 146 H Phosphorus Magnesium Troponin T Albumin Free T4 Crossmatch 05/06/22 05/06/22 05/06/22 05:02 05:02 11:34 WBC RBC 2.78 L Hgb 7.9 L Hct 25.1 L RDW 16.7 H Plt Count 119 L [place] % (Auto) Lymph # (Auto) Seg Neuts % (Manual) Lymphocytes % (Manual) Nucleated RBC % Seg Neutrophils # Man Lymphocytes # (Manual) PT INR APTT Heparin Anti-Xa Level ABG pH ABG pO2 ABG HCO3 ABG Base Excess ABG Hemoglobin Oxyhemoglobin Sodium 135 L Potassium 3.3 L Chloride 97.9 L Carbon Dioxide BUN 30 H Creatinine 2.7 H Glucose 148 H POC Glucose 130 H Phosphorus 1.50 L Magnesium Troponin T Albumin Free T4 Crossmatch 05/06/22 05/06/22 05/07/22 16:48 23:34 04:15 WBC RBC 2.95 L Hgb 8.4 L Hct 26.7 L RDW 16.7 H Plt Count 112 L [place] % (Auto) Lymph # (Auto) Seg Neuts % (Manual) Lymphocytes % (Manual) Nucleated RBC % Seg Neutrophils # Man Lymphocytes # (Manual) PT INR APTT Heparin Anti-Xa Level ABG pH ABG pO2 ABG HCO3 ABG Base Excess ABG Hemoglobin Oxyhemoglobin Sodium Potassium Chloride Carbon Dioxide BUN Creatinine Glucose POC Glucose 121 H 145 H Phosphorus Magnesium Troponin T Albumin Free T4 Crossmatch 05/07/22 05/07/22 05/07/22 04:15 05:26 11:08 WBC RBC Hgb Hct RDW Plt Count [place] % (Auto) Lymph # (Auto) Seg Neuts % (Manual) Lymphocytes % (Manual) Nucleated RBC % Seg Neutrophils # Man Lymphocytes # (Manual) PT INR APTT Heparin Anti-Xa Level ABG pH ABG pO2 ABG HCO3 ABG Base Excess ABG Hemoglobin Oxyhemoglobin Sodium 131 L Potassium 3.4 L Chloride 95.3 L Carbon Dioxide BUN 28 H Creatinine 2.5 H Glucose 140 H POC Glucose 136 H 136 H Phosphorus 1.20 L Magnesium Troponin T Albumin Free T4 Crossmatch 05/07/22 05/07/22 05/08/22 17:26 23:23 04:06 WBC RBC 2.87 L Hgb 8.2 L Hct 25.8 L RDW 16.2 H Plt Count 118 L [place] % (Auto) Lymph # (Auto) Seg Neuts % (Manual) Lymphocytes % (Manual) Nucleated RBC % Seg Neutrophils # Man Lymphocytes # (Manual) PT INR APTT Heparin Anti-Xa Level ABG pH ABG pO2 ABG HCO3 ABG Base Excess ABG Hemoglobin Oxyhemoglobin Sodium Potassium Chloride Carbon Dioxide BUN Creatinine Glucose POC Glucose 135 H 123 H Phosphorus Magnesium Troponin T Albumin Free T4 Crossmatch 05/08/22 05/08/22 04:06 04:40 WBC RBC Hgb Hct RDW Plt Count [place] % (Auto) Lymph # (Auto) Seg Neuts % (Manual) Lymphocytes % (Manual) Nucleated RBC % Seg Neutrophils # Man Lymphocytes # (Manual) PT INR APTT Heparin Anti-Xa Level ABG pH 7.482 H ABG pO2 103.9 H ABG HCO3 ABG Base Excess ABG Hemoglobin 8.1 L Oxyhemoglobin Sodium 132 L Potassium 3.3 L Chloride 93.2 L Carbon Dioxide BUN 36 H Creatinine 2.9 H Glucose 145 H POC Glucose Phosphorus 2.00 L D Magnesium Troponin T Albumin Free T4 Crossmatch Chest x-ray: image reviewed (persistent but improved RLL patchy atelectasis / infiltartes) Allied health notes reviewed: nursing
--- NOTE | 2022-05-08 15:32 | Progress Note ---
<NONALORRAINE VianeySue - Last Filed: 05/08/22 15:23> Assessment and Plan Assessment and plan: This is a 66-year-old female with HTN, GERD, seizure disorder, vascular dementia, ESRD on HD, chronic hypertension, bipolar, schizophrenia, anxiety admitted with acute hypoxic respiratory failure, acute on chronic hypotension, acute on chronic metabolic encephalopathy and SVT Neuro: h/o vascular dementia, schizophrenia, bipolar, anxiety disorder -Continue home Seroquel at reduced dose -As needed Ativan -Reorientation as needed -Maintain sleep-wake cycle -As needed analgesia -Continue home memantine, respiradol, valproic acid -CT head showed no acute intracranial abnormalities, no significant interval changes -Psych consulted, appreciate recommendations Cardiac: SVT s/p cardioversion, chronic hypotension, NSTEMI type II -Cardiology consulted, appreciate recommendations -Blood pressure monitoring per protocol -s/p vasopressor support with Levophed -Cortisol 24.4 -s/p Fludrocortisone for 4 doses -Midodrine 20mg TID -Echo 01/31/2022-EF 60 to 65%. Doppler flow pattern suggests impaired LV relaxation. Right ventricle systolic function is normal trace aortic regurgitat ion. Trace mitral regurgitation. -Lipitor, Plavix Respiratory: Acute hypoxic respiratory failure -CCM consulted, appreciate recommendations -Chest ultrasound showed bilateral pleural effusions, right greater than left -05/05 s/p therapeutic bronch at the bedside -Intubated 05/01 for bronch with 7.5 oett at 22 at the lips -ABG abg and CXR noted -AM vent settings: AC Rate 14, TV 450, Peep 6, FiO2 30% -See RT notes for titration -Pulmonary hygiene -SPO2 monitor per protocol GI: Moderate protein calorie malnutrition, dysphagia s/p PEG -GI consulted -s/p peg 05/04 -24 hours + 1768 mL -PPI -TF -BR: Senokot : ESRD on HD, hypophosphatemia, hypokalemia -Nephrology consulted, appreciate recommendations -HD per nephrology (TThSat) -Monitor intake and output -Renally dose medications -Avoid nephrotoxic medications -Epogen 3 times daily -Trend BMP -Replete with K-Phos ID: Septic Shock, MRSA PNA -ID consulted, appreciate recommendations -f/u blood culture -04/19 blood cultures x2 NGTD, bronch wash with MRSA -ABX therapy with cefepime, vanco -Monitor WBC and temperature curve Endo: NAD -Avoid hypoglycemia Heme: Anemia of chronic disease, RIJ thrombus (chronic), leukocytosis -Vascular surgery consulted, appreciate recommendations -no need for heparin gtt per vascular surgery -Trend CBC -Transfuse hemoglobin less than 7 -s/p 3 unit PRBC -Epogen 3 times daily -SCDs to BLE while in bed The high probability of a clinically significant, sudden or life threatening deterioration of the [multiple] system(s) required my full and direct attention, intervention and personal management. The aggregate critical care time was [60] minutes. This time is in addition to time spent performing reported procedures but includes the following: [x] Data Review and interpretation [x] Patient assessment and monitoring of vital signs [x] Documentation [x] Medication orders and management Disposition Plan: icu Total Time Spent with Patient (Minutes): 60 History Interval history: This is a 66-year-old female with HTN, GERD, seizure disorder, vascular dementia, ESRD on HD (TTS), OA, chronic hypotension, bipolar, schizophrenia, anxiety examined mobility with a resident of [facility] present to the emergency department on 04/19 with altered mental status and for being combative causing her to miss several days of hemodialysis. On presentation patient was found to be more hypertensive than usual and on room air with oxygen saturations in the 90s and she subsequently went into SVT into the 150s requiring cardioversion under conscious sedation. Patient was admitted to the hospital service with acute hypoxic respiratory failure, acute on chronic hypotension, acute on chronic metabolic encephalopathy, SVT, hyperkalemia, NSTEMI type II to the ICU with consults to [facility], nephrology cardiology and psych. Hospital Course to Date: 04/20: Patient went into Afib with RVR overnight, now on amiodarone gtt per car jane. Patient remains in AFib with RVR this am, HR in the 120-140s. BP marginal on Levophed gtt, currently not a candidate for BB. Midodrine increased to 15mg TID. 2D Echo pending. On heparin gtt per protocol. No HD today per nephro due to hypotension and tachycardia. 04/21: Converted to SR this am, remains on Amiodarone and heparin. Awaiting cardio final recommendations. Still on Levophed gtt for low BP, given patient history of chronic hypotension, Wean pressor for MAP goal of 60s. Patient is pocketing foods, currently NPO, awaiting speech eval and treat. 04/22: Patient passed speech swallow eval yesterday, however, patient is refusing PO intakes including meds. Will insert DHT for nutrition and meds administration. Patient remains in SR this am, amiodaron gtt transitioned to PO per cardio. Patient remains on heparin and Levophed gtt. Patient has not received PO midrodrine for 24hrs, resume meds once DHT is inserted. Keep femoral CVC for another 24hrs, anticipating will be able to wean off pressor once patient receive midodrine. Will reassess in the morning. No HD overnight, unable to cannulate AVF, plan to attempt again today per Nephro. Possible IR/Vascular surgery consult if unsuccessful again today. 04/23: Mentation a lot better this am. DHT was inserted, meds resumed and TF in itiated. Levophed gtt increased overnight due to worsen hypotension, suspected it is due to sedative agents. Seroquel decreased to 200mg BID and scheduled ativan switched to PRN. Continue midodrine TID and wean off levophed gtt for MAP goal of 60. Patient tolerated HD yesterday, continue iHD per Nephrology. CCM recommendations noted, Chest US ordered for pleural effusion. 04/24: RN instructed to wean Levophed off, goal MAP of 60. Heparin drip stopped due to decreasing hemoglobin. 04/25: ST had cleared the patient for pured diet which will be started today, hemodialysis planned for today, patient was to be anemic and will receive 1 unit PRBC with HD. We will increase midodrine to 20 mg 3 times daily if patient becomes hypotensive during dialysis. Per CCM. Decrease in seroqoul but will in crease if needed 04/26: Patient agreeable to PEG, GI consulted for placement. Femoral line removed 04/27: No acute events reported overnight, patient has been cardiac cleared for PEG tube placement. Possible PEG in the a.m. This afternoon attempted to place IJ CVL which was unsuccessful and Dr. Mcguier ultimately placed femoral CVL for the initiation of Levophed. HD scheduled for today. 04/28: Patient initially started on Levophed yesterday and she received a femoral CVL. 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 Vascular surgery was consulted. Patient also noted to be anemic and received 1 unit PRBC today. 04/29: Possible hemodialysis today, patient was able to be weaned off of Levophed today. Hemoglobin responded well to 1 unit PRBC. Awaiting trach/PEG placement. Patient will not need to be started on heparin drip per vascular surgery. No acute events reported overnight. 04/30: HD yesterday without removal of fluids, patient needs NT suctioning. Updated son today. 05/01: Patient with increase mucous production and is unable to fully clear her airway, Rhonchi auscultated throughout her lungs this am. SPO2 at 90 to 94% on 3L NC. D/W CCM, patient is high risk for aspiration will placed patient on heated HF at 40L for now instead of Bipap. Nasal bleeding also noted, mostly due to NT suctioning. Refrain from NT suctioning for now due to bleeding, only oral suctioning. PO seroquel held this amP atient is AAO, appropriate, and following commands. Levophed gtt weaned off, patient remains hemodynamically stable. Will discuss Nephro for possible fluid removal tonight or early tomorrow. Very low threshold for intubation. Patient's condition and plan of care, including poss ible intubation, thoroughly discussed with patient's son-Raymundo Randolph at . Patient's son verbalized understanding of the info provided and agreed with intubation if necessary. 05/02: Remains on HHFL at 40% and 40L, mentation is unchanged. HD at the bedside, plan for possible UF with fluid removal today. Continue O2 supplementation and wean as tolerated, for SPO2 above 92%. Repeat CXR in the am. Patient vital signs remains stable, still off pressors. Plan for possible PEG-tube placement by GI tomorrow, NPO after MN. Possible fistulogram for RIJ thrombus on or sunday per Vascular Surgery. 05/03: Complete white-out of right side from this am CXR, probable mucus plug. S/ p intubation and bronch at the bedside by [facility]. Patient remains sedated and required short duration of Levophed gtt during the procedure. Pressor was wean off, VSS. Plan for CPT and mucomyst Q12hrs. Repeat CXR in the am. PEG-Tube placement postpone for possibly tomorrow if patient remains stable. Possible fistulogram for RIJ thrombus on or Sunday per Vascular Surgery. 05/04: Remains on the vent, easily arousable. High fevers overnight with spike in leukocytosis, now on 2 pressors. [facility] d/w ID, recommendations to repeat blood cultures and empiric IV abx- Cefepine and Vanco. low H&H this am, no s/s of any active bleeding, 1units of PRBCs during iHD today. S/p PEG-tube placement at this bedside this am by GI, no complications noted. Resume TF once clear by GI. 05/05: Remains on low vent setting. This am CXR with increase opacities on the right side again today, s/p therapeutic bronch at the bedside today by [facility]. Repeat CXR in the am. Remains with low grade fevers and on 2 pressors. Bronchial wash with Staph A. and blood cultures pending. Continue current IV Abx per ID. 05/06: Stable on the vent this am. Only on low dose pressors, MAP above 65. CXR with some improvement, peep dropped to 8 per [facility]. Continue CPT and Mucomyst TID. If patient remains stable overnight, possible PSV trial in the am. Fevers and leukocytosis improved. Continue current IV Abx per ID. Continue iHD per Nephro 05/07: Remains stable on the vent, afebrile and off pressors this am VSS. This am CXR reviewed, increased opacities on the right side. Patient remains on low vent settings. Further management per [facility], continue CPT and Mucomyst TID. Bronch wash with MRSA, blood cultures pending. Continue current IV Abx per ID. 05/08: We will replete potassium, [facility] would like a CT chest tube but evaluate atelectasis/consolidation/effusions. LTAC evaluation Hospitalist Physical - Constitutional Vitals: Temp Pulse Resp BP Pulse Ox 98.4 F 102 H 14 132/68 98 05/08/22 12:04 05/08/22 15:15 05/08/22 15:15 05/08/22 15:15 05/08/22 15:15 General appearance: Present: no acute distress, other (Nonresponsive on vent) - EENT Eyes: Present: PERRL, EOM intact ENT: dentition normal - Neck Neck: Present: normal ROM - Respiratory Respiratory effort: normal Respiratory: bilateral: diminished - Cardiovascular Rhythm: regular Heart Sounds: Present: S1 & S2. Absent: systolic murmur, diastolic murmur - Extremities Extremities: no ischemia, pulses intact, pulses symmetrical, normal color Extremity abnormal: edema, pulses diminished Peripheral Pulses: within normal limits - Abdominal General gastrointestinal: soft, non-tender, non-distended, normal bowel sounds - Integumentary Integumentary: Present: warm, dry - Psychiatric Psychiatric: cooperative - Neurologic Neurologic: CNII-XII intact, no focal deficits, moves all extremities - Allied Health Allied health notes reviewed: nursing, social work HEART Score - HEART Score Troponin: Troponin T 0.415 ng/mL (0.00-0.029) H* 04/19/22 04:53 Results - Labs CBC & Chem 7: 05/08/22 04:06 05/08/22 04:06 Labs: Laboratory Last Values WBC 6.6 K/mm3 (4.5-11.0) 05/08/22 04:06 RBC 2.87 M/mm3 (3.65-5.03) L 05/08/22 04:06 Hgb 8.2 gm/dl (10.1-14.3) L 05/08/22 04:06 Hct 25.8 % (30.3-42.9) L 05/08/22 04:06 MCV 90 fl (79-97) 05/08/22 04:06 MCH 29 pg (28-32) 05/08/22 04:06 MCHC 32 % (30-34) 05/08/22 04:06 RDW 16.2 % (13.2-15.2) H 05/08/22 04:06 Plt Count 118 K/mm3 (140-440) L 05/08/22 04:06 Lymph % (Auto) 26.7 % (13.4-35.0) 04/20/22 05:30 Gila % (Auto) 15.2 % (0.0-7.3) H 04/20/22 05:30 Eos % (Auto) 3.8 % (0.0-4.3) 04/20/22 05:30 Baso % (Auto) 1.2 % (0.0-1.8) 04/20/22 05:30 Lymph # (Auto) 1.1 K/mm3 (1.2-5.4) L 04/20/22 05:30 Gila # (Auto) 0.6 K/mm3 (0.0-0.8) 04/20/22 05:30 Eos # (Auto) 0.2 K/mm3 (0.0-0.4) 04/20/22 05:30 Baso # (Auto) 0.0 K/mm3 (0.0-0.1) 04/20/22 05:30 Add Manual Diff Complete 05/05/22 04:20 Total Counted 100 05/05/22 04:20 Seg Neutrophils % 53.1 % (40.0-70.0) 04/20/22 05:30 Seg Neuts % (Manual) 86.0 % (40.0-70.0) H 05/05/22 04:20 Band Neutrophils % 3.0 % 05/05/22 04:20 Lymphocytes % (Manual) 4.0 % (13.4-35.0) L 05/05/22 04:20 Reactive Lymphs % (Man) 0 % 05/05/22 04:20 Monocytes % (Manual) 6.0 % (0.0-7.3) 05/05/22 04:20 Eosinophils % (Manual) 1.0 % (0.0-4.3) 05/05/22 04:20 Basophils % (Manual) 0 % (0.0-1.8) 05/05/22 04:20 Metamyelocytes % 0 % 05/05/22 04:20 Myelocytes % 0 % 05/05/22 04:20 Promyelocytes % 0 % 05/05/22 04:20 Blast Cells % 0 % 05/05/22 04:20 Nucleated RBC % 1.0 % (0.0-0.9) H 05/05/22 04:20 Seg Neutrophils # 2.2 K/mm3 (1.8-7.7) 04/20/22 05:30 Seg Neutrophils # Man 11.0 K/mm3 (1.8-7.7) H 05/05/22 04:20 Band Neutrophils # 0.4 K/mm3 05/05/22 04:20 Lymphocytes # (Manual) 0.5 K/mm3 (1.2-5.4) L 05/05/22 04:20 Abs React Lymphs (Man) 0.0 K/mm3 05/05/22 04:20 Monocytes # (Manual) 0.8 K/mm3 (0.0-0.8) 05/05/22 04:20 Eosinophils # (Manual) 0.1 K/mm3 (0.0-0.4) 05/05/22 04:20 Basophils # (Manual) 0.0 K/mm3 (0.0-0.1) 05/05/22 04:20 Metamyelocytes # 0.0 K/mm3 05/05/22 04:20 Myelocytes # 0.0 K/mm3 05/05/22 04:20 Promyelocytes # 0.0 K/mm3 05/05/22 04:20 Blast Cells # 0.0 K/mm3 05/05/22 04:20 WBC Morphology Not Reportable 05/05/22 04:20 Hypersegmented Neuts Not Reportable 05/05/22 04:20 Hyposegmented Neuts Not Reportable 05/05/22 04:20 Hypogranular Neuts Not Reportable 05/05/22 04:20 Smudge Cells Not Reportable 05/05/22 04:20 Toxic Granulation Not Reportable 05/05/22 04:20 Toxic Vacuolation Not Reportable 05/05/22 04:20 Dohle Bodies Not Reportable 05/05/22 04:20 Pelger-Huet Anomaly Not Reportable 05/05/22 04:20 Ubaldo Rods Not Reportable 05/05/22 04:20 Platelet Estimate Consistent w auto 05/05/22 04:20 Clumped Platelets Not Reportable 05/05/22 04:20 Plt Clumps, EDTA Not Reportable 05/05/22 04:20 Large Platelets Not Reportable 05/05/22 04:20 Giant Platelets Not Reportable 05/05/22 04:20 Platelet Satelliting Not Reportable 05/05/22 04:20 Plt Morphology Comment Not Reportable 05/05/22 04:20 RBC Morphology Not Reportable 05/05/22 04:20 Dimorphic RBCs Not Reportable 05/05/22 04:20 Polychromasia Not Reportable 05/05/22 04:20 Hypochromasia 2+ 05/05/22 04:20 Poikilocytosis Not Reportable 05/05/22 04:20 Anisocytosis 1+ 05/05/22 04:20 Microcytosis Not Reportable 05/05/22 04:20 Macrocytosis Not Reportable 05/05/22 04:20 Spherocytes Not Reportable 05/05/22 04:20 Pappenheimer Bodies Not Reportable 05/05/22 04:20 Sickle Cells Not Reportable 05/05/22 04:20 Target Cells Not Reportable 05/05/22 04:20 Tear Drop Cells Not Reportable 05/05/22 04:20 Ovalocytes Not Reportable 05/05/22 04:20 Helmet Cells Not Reportable 05/05/22 04:20 Rangel-Ebony Bodies Not Reportable 05/05/22 04:20 Chauncey Rings Not Reportable 05/05/22 04:20 [place] Cells Not Reportable 05/05/22 04:20 Bite Cells Not Reportable 05/05/22 04:20 Crenated Cell Not Reportable 05/05/22 04:20 Elliptocytes Not Reportable 05/05/22 04:20 Acanthocytes (Spur) Not Reportable 05/05/22 04:20 Rouleaux Not Reportable 05/05/22 04:20 Hemoglobin C Crystals Not Reportable 05/05/22 04:20 Schistocytes Not Reportable 05/05/22 04:20 Malaria parasites Not Reportable 05/05/22 04:20 Torrey Bodies Not Reportable 05/05/22 04:20 Hem Pathologist Commnt No 05/05/22 04:20 PT 17.6 Sec. (12.2-14.9) H 05/04/22 04:26 INR 1.29 (0.87-1.13) H 05/04/22 04:26 APTT 39.4 Sec. (24.2-36.6) H 05/03/22 04:24 Heparin Anti-Xa Level < 0.10 U.I./ml (0.3-0.7) L 04/24/22 10:20 ABG pH 7.482 pH Units (7.350-7.450) H 05/08/22 04:40 ABG pCO2 35.2 mm Hg 05/08/22 04:40 ABG pO2 103.9 mm Hg (80.0-90.0) H 05/08/22 04:40 ABG HCO3 25.8 mmol/L (20.0-26.0) 05/08/22 04:40 ABG O2 Saturation 98.0 % (95.0-99.0) 05/08/22 04:40 ABG O2 Content 11.1 (0.0-44) 05/08/22 04:40 ABG Base Excess 2.3 mmol/L (-2.0-3.0) 05/08/22 04:40 ABG Hemoglobin 8.1 gm/dl (12.0-16.0) L 05/08/22 04:40 ABG Carboxyhemoglobin 1.8 % (0.0-5.0) 05/08/22 04:40 ABG Methemoglobin 0.2 % (0.0-1.5) 05/08/22 04:40 Oxyhemoglobin 96.0 % (95.0-99.0) 05/08/22 04:40 FiO2 30 % 05/08/22 04:40 Sodium 132 mmol/L (137-145) L 05/08/22 04:06 Potassium 3.3 mmol/L (3.6-5.0) L 05/08/22 04:06 Chloride 93.2 mmol/L (98-107) L 05/08/22 04:06 Carbon Dioxide 28 mmol/L (22-30) 05/08/22 04:06 Anion Gap 14 mmol/L 05/08/22 04:06 BUN 36 mg/dL (7-17) H 05/08/22 04:06 Creatinine 2.9 mg/dL (0.6-1.2) H 05/08/22 04:06 Estimated GFR 20 ml/min 05/08/22 04:06 BUN/Creatinine Ratio 12 % 05/08/22 04:06 Glucose 145 mg/dL (65-100) H 05/08/22 04:06 POC Glucose 123 mg/dL (70-105) H 05/07/22 23:23 Lactic Acid 1.60 mmol/L (0.7-2.0) 04/19/22 07:14 Calcium 8.9 mg/dL (8.4-10.2) 05/08/22 04:06 Phosphorus 2.00 mg/dL (2.5-4.5) L D 05/08/22 04:06 Magnesium 1.80 mg/dL (1.7-2.3) 05/08/22 04:06 Total Bilirubin 0.30 mg/dL (0.1-1.2) 04/20/22 05:30 AST 11 units/L (5-40) 04/20/22 05:30 ALT 7 units/L (7-56) 04/20/22 05:30 Alkaline Phosphatase 101 units/L (35-129) 04/20/22 05:30 Ammonia 25.0 umol/L (25-60) 04/19/22 04:53 Troponin T 0.415 ng/mL (0.00-0.029) H* 04/19/22 04:53 Total Protein 6.4 g/dL (6.3-8.2) 04/20/22 05:30 Albumin 2.4 g/dL (3.9-5) L 04/20/22 05:30 Albumin/Globulin Ratio 0.6 % 04/20/22 05:30 Procalcitonin 42.42 ng/mL (<0.15) 05/05/22 04:20 TSH 1.700 mlU/mL (0.270-4.200) 04/19/22 04:53 Free T4 0.28 ng/dL (0.76-1.46) L 04/19/22 04:53 Total Cortisol 24.4 mcg/dL () 04/27/22 04:45 Random Vancomycin 9.6 ug/mL (0-40.0) 05/07/22 04:15 Coronavirus (PCR) Negative (Negative) 05/03/22 11:30 Hepatitis A IgM Ab Non-reactive (NonReactive) 04/19/22 04:53 Hep Bs Antigen Non-reactive (Negative) 04/19/22 04:53 Hep B Core IgM Ab Non-reactive (NonReactive) 04/19/22 04:53 Hepatitis C Antibody Non-reactive (NonReactive) 04/19/22 04:53 Blood Type A POSITIVE 05/04/22 05:30 Antibody Screen Negative 05/04/22 05:30 Crossmatch See Detail 05/04/22 05:30 Microbiology: Microbiology 05/04/22 16:30 Peripheral/Venous Blood Culture - Preliminary NO GROWTH AFTER 72 HOURS 05/03/22 10:30 Bronchial Washings - Right Lower Lobe Respiratory Culture - Final Methicillin Resist S. Aureus 05/04/22 16:30 Peripheral/Venous Blood Culture - Preliminary Coag Negative Staphylococcus Cleary/IV: Voiding Method Incontinent Active Medications - Current Medications Current Medications: Generic Name Dose Route Start Last Admin Trade Name Freq PRN Reason Stop Dose Admin Acetaminophen 650 mg 04/22/22 20:12 05/03/22 23:41 Acetaminophen 325 Mg/10.15 Ml Oral Liqd Unit Dose PO 650 mg Q6H PRN Administration Pain MILD(1-3)/Fever >100.5/DRAKE Acetylcysteine 200 mg 05/05/22 14:00 05/08/22 13:26 Acetylcysteine 20% 200 Mg/1 Ml *For Inhalation Use* INHALATION 05/10/22 13:59 200 mg TID CONNOR Administration Albumin Human 25 gm 04/21/22 13:00 04/22/22 16:31 Albumin Human 25% (25 Gm/100 Ml) Inj IV 25 gm BIANCA PRN Administration Hypotension Albuterol 2.5 mg 04/21/22 08:30 04/24/22 16:51 Albuterol 2.5 Mg/3 Ml Nebu IH 2.5 mg Q3HRT PRN Administration Shortness Of Breath Albuterol/Ipratropium 1 ampul 04/21/22 14:00 05/08/22 13:26 Ipratropium/Albuterol Sulfate 3 Ml Ampul.Neb IH 1 ampul TIDRT CONNOR Administration Docusate Sodium 100 mg 05/01/22 22:00 05/08/22 11:27 Docusate Sodium 100 Mg/10 Ml Oral Liqd FEEDTUBE Not Given BID [facility] Epoetin Lb-epbx 20,000 unit 04/23/22 12:00 05/06/22 19:23 Epoetin Lb-Epbx 20,000 Unit/1 Ml Vial IV 20,000 unit BIANCA PRN Administration HEMODIALYSIS Fentanyl 50 mcg 05/03/22 10:29 05/05/22 12:23 Fentanyl 100 Mcg/2 Ml Inj IV 25 mcg Q10MIN PRN Administration ANALGESIA Sodium Chloride 100 mls @ 999 mls/hr 04/22/22 09:12 Nacl 0.9% IV BIANCA PRN Hypotension Fentanyl Citrate 2,000 mcg in 100 mls @ 2.722 mls/hr 05/03/22 11:00 Fentanyl Drip Premix IV TITR CONNOR Protocol 1 MCG/KG/HR NORepinephrine/NS 8 MG-250 ML 8 mg in 250 mls @ 3.75 mls/hr 05/03/22 13:15 05/06/22 10:06 Norepinephrine/Ns 8 Mg-250 Ml (Double Conc) IV 0 mcg/min TITRATE CONNOR 0 mls/hr Titration Protocol 2 MCG/MIN Vasopressin 20 unit/ Sodium 101 mls @ 9.09 mls/hr 05/04/22 00:30 05/06/22 11:21 Chloride IV 0 units/min TITR CONNOR 0 mls/hr Infusion 0.03 UNITS/MIN Cefepime HCl 1 gm in 100 mls @ 200 mls/hr 05/04/22 18:00 05/07/22 17:11 Cefepime/Ns 1 Gm/100 Ml IV 200 mls/hr QPM CONNOR Administration Protocol Lansoprazole 30 mg 04/23/22 10:00 05/08/22 10:59 Lansoprazole 30 Mg Solutab FEEDTUBE 30 mg QDAY CONNOR Administration Lorazepam 0.5 mg 04/25/22 09:59 Lorazepam 0.5 Mg Tab FEEDTUBE QDAY PRN Anxiety Memantine 5 mg 04/25/22 10:00 05/08/22 10:57 Memantine 5 Mg Tab FEEDTUBE 5 mg BID CONNOR Administration Metoclopramide HCl 5 mg 04/19/22 09:55 Metoclopramide 10 Mg/2 Ml Inj IV Q6H PRN Nausea And Vomiting Midodrine 20 mg 04/26/22 14:00 05/08/22 14:10 Midodrine 10 Mg Tab FEEDTUBE 20 mg TID CONNOR Administration Naloxone HCl 0.1 mg 04/19/22 09:55 Naloxone 0.4 Mg/1 Ml Inj IV Q2MIN PRN Res Rate </= 8 or 02 SAT < 92% Polyethylene Glycol 17 gm 05/03/22 10:00 05/08/22 11:27 Polyethylene Glycol 3350 17 Gm Powder FEEDTUBE Not Given QDAY CONNOR Risperidone 0.5 mg 04/25/22 11:00 05/08/22 11:00 Risperidone 1 Mg Tab FEEDTUBE 0.5 mg BID CONNOR Administration Scopolamine 1 each 05/02/22 10:00 05/08/22 11:01 Scopolamine Transdermal Patch 72 Hr TD 1 each Q3D CONNOR Administration Senna 17.2 mg 04/23/22 10:00 05/08/22 11:27 Sennosides 8.6 Mg Tab FEEDTUBE Not Given BID CONNOR Sodium Chloride 10 ml 04/19/22 12:00 05/08/22 11:00 Sodium Chloride 0.9% 10 Ml Flush Syringe IV 10 ml BID CONNOR Administration Sodium Chloride 10 ml 04/19/22 11:19 Sodium Chloride 0.9% 10 Ml Flush Syringe IV PRN PRN LINE FLUSH Sodium Phosphate 250 mg 05/08/22 10:00 05/08/22 14:11 K-Phos Neutral 250 Mg Tab FEEDTUBE 05/09/22 09:59 250 mg QID CONNOR Administration Valproic Acid 750 mg 04/22/22 22:00 05/08/22 10:59 Valproic Acid 250 Mg/5 Ml Oral Liqd FEEDTUBE 750 mg BID CONNOR Administration Nutrition/Malnutrition Assess - Dietary Evaluation Nutrition/Malnutrition Findings: Nutrition Notes Start: 04/19/22 17:39 Freq: Status: Active Protocol: Document 05/05/22 14:44 SHILA (Rec: 05/05/22 14:55 [facility] [id number]) Nutrition Notes Initial or Follow up Reassessment Current Diagnosis CKD (stage V CKD),Sepsis, Respiratory Failure Other Pertinent Diagnosis Neurogenic dysphagia, metabolic encephalopathy, vascular dementia Current Diet No diet order in chart Labs/Tests Na 130 K 3.3 BUN 24 Cr 2.3 BG 163 Phos 1.5 Pertinent Medications Colace, Senokot, Miralax, Levophed gtt, Vasopressin gtt Height 5 ft 2 in Weight 54.43 kg [place] Body Weight (kg) 50.00 BMI 21.9 Weight Status Appropriate Subjective/Other Information PEG placed yesterday. Pt remains on vent and HD support . Observed Nepro infusing at 30ml/hr. No BM documented today. Bronchoscopy performed today. Percent of energy/protein needs met: 104% energy 90% pro Burn Absent Trauma Absent #1 Nutrition Diagnosis Inadequate oral intake, Swallowing difficulty Diagnosis Progress(for reassessment Continues documentation) Is patient on ventilator? Yes Is Patient Ambulatory and/or Out of Bed No [facility] [phone] Calculation Used for Recommendations Denise Dick Additional Notes Pro needs >1.2g/kg: >65g/day Fluid needs 1-1.5L/day Nutrition Intervention Nutrition Support: Continue Nepro at 30ml/hr with 130ml water flush q4h. Kcal 1,296 Protein (gm) 58 Carbohydrates (gm) 116 Fat (gm) 69 Fluid (mL) 523 Fiber (gm) 9 Goal #1 TF tolerance Goal #2 TF to meet at least 75% energy and pro needs Follow-Up By: 05/12/22 Additional Comments F/U: stable TF, vent status, wt, BM <MELINDA BOWEN - Last Filed: 05/08/22 19:11> Assessment and Plan Assessment and plan: I saw and evaluated the patient. I agree with the findings and the plan of care as documented in the Nurse Practitioner's~note, with the following corrections and additions. Hospitalist Physical - Constitutional Vitals: Temp Pulse Resp BP Pulse Ox 99.2 F 95 H 14 131/53 97 05/08/22 16:39 05/08/22 19:07 05/08/22 19:00 05/08/22 19:00 05/08/22 19:07 HEART Score - HEART Score Troponin: Troponin T 0.415 ng/mL (0.00-0.029) H* 04/19/22 04:53 Results - Labs CBC & Chem 7: 05/08/22 04:06 05/08/22 04:06 Labs: Laboratory Last Values WBC 6.6 K/mm3 (4.5-11.0) 05/08/22 04:06 RBC 2.87 M/mm3 (3.65-5.03) L 05/08/22 04:06 Hgb 8.2 gm/dl (10.1-14.3) L 05/08/22 04:06 Hct 25.8 % (30.3-42.9) L 05/08/22 04:06 MCV 90 fl (79-97) 05/08/22 04:06 MCH 29 pg (28-32) 05/08/22 04:06 MCHC 32 % (30-34) 05/08/22 04:06 RDW 16.2 % (13.2-15.2) H 05/08/22 04:06 Plt Count 118 K/mm3 (140-440) L 05/08/22 04:06 Lymph % (Auto) 26.7 % (13.4-35.0) 04/20/22 05:30 Gila % (Auto) 15.2 % (0.0-7.3) H 04/20/22 05:30 Eos % (Auto) 3.8 % (0.0-4.3) 04/20/22 05:30 Baso % (Auto) 1.2 % (0.0-1.8) 04/20/22 05:30 Lymph # (Auto) 1.1 K/mm3 (1.2-5.4) L 04/20/22 05:30 Gila # (Auto) 0.6 K/mm3 (0.0-0.8) 04/20/22 05:30 Eos # (Auto) 0.2 K/mm3 (0.0-0.4) 04/20/22 05:30 Baso # (Auto) 0.0 K/mm3 (0.0-0.1) 04/20/22 05:30 Add Manual Diff Complete 05/05/22 04:20 Total Counted 100 05/05/22 04:20 Seg Neutrophils % 53.1 % (40.0-70.0) 04/20/22 05:30 Seg Neuts % (Manual) 86.0 % (40.0-70.0) H 05/05/22 04:20 Band Neutrophils % 3.0 % 05/05/22 04:20 Lymphocytes % (Manual) 4.0 % (13.4-35.0) L 05/05/22 04:20 Reactive Lymphs % (Man) 0 % 05/05/22 04:20 Monocytes % (Manual) 6.0 % (0.0-7.3) 05/05/22 04:20 Eosinophils % (Manual) 1.0 % (0.0-4.3) 05/05/22 04:20 Basophils % (Manual) 0 % (0.0-1.8) 05/05/22 04:20 Metamyelocytes % 0 % 05/05/22 04:20 Myelocytes % 0 % 05/05/22 04:20 Promyelocytes % 0 % 05/05/22 04:20 Blast Cells % 0 % 05/05/22 04:20 Nucleated RBC % 1.0 % (0.0-0.9) H 05/05/22 04:20 Seg Neutrophils # 2.2 K/mm3 (1.8-7.7) 04/20/22 05:30 Seg Neutrophils # Man 11.0 K/mm3 (1.8-7.7) H 05/05/22 04:20 Band Neutrophils # 0.4 K/mm3 05/05/22 04:20 Lymphocytes # (Manual) 0.5 K/mm3 (1.2-5.4) L 05/05/22 04:20 Abs React Lymphs (Man) 0.0 K/mm3 05/05/22 04:20 Monocytes # (Manual) 0.8 K/mm3 (0.0-0.8) 05/05/22 04:20 Eosinophils # (Manual) 0.1 K/mm3 (0.0-0.4) 05/05/22 04:20 Basophils # (Manual) 0.0 K/mm3 (0.0-0.1) 05/05/22 04:20 Metamyelocytes # 0.0 K/mm3 05/05/22 04:20 Myelocytes # 0.0 K/mm3 05/05/22 04:20 Promyelocytes # 0.0 K/mm3 05/05/22 04:20 Blast Cells # 0.0 K/mm3 05/05/22 04:20 WBC Morphology Not Reportable 05/05/22 04:20 Hypersegmented Neuts Not Reportable 05/05/22 04:20 Hyposegmented Neuts Not Reportable 05/05/22 04:20 Hypogranular Neuts Not Reportable 05/05/22 04:20 Smudge Cells Not Reportable 05/05/22 04:20 Toxic Granulation Not Reportable 05/05/22 04:20 Toxic Vacuolation Not Reportable 05/05/22 04:20 Dohle Bodies Not Reportable 05/05/22 04:20 Pelger-Huet Anomaly Not Reportable 05/05/22 04:20 Ubaldo Rods Not Reportable 05/05/22 04:20 Platelet Estimate Consistent w auto 05/05/22 04:20 Clumped Platelets Not Reportable 05/05/22 04:20 Plt Clumps, EDTA Not Reportable 05/05/22 04:20 Large Platelets Not Reportable 05/05/22 04:20 Giant Platelets Not Reportable 05/05/22 04:20 Platelet Satelliting Not Reportable 05/05/22 04:20 Plt Morphology Comment Not Reportable 05/05/22 04:20 RBC Morphology Not Reportable 05/05/22 04:20 Dimorphic RBCs Not Reportable 05/05/22 04:20 Polychromasia Not Reportable 05/05/22 04:20 Hypochromasia 2+ 05/05/22 04:20 Poikilocytosis Not Reportable 05/05/22 04:20 Anisocytosis 1+ 05/05/22 04:20 Microcytosis Not Reportable 05/05/22 04:20 Macrocytosis Not Reportable 05/05/22 04:20 Spherocytes Not Reportable 05/05/22 04:20 Pappenheimer Bodies Not Reportable 05/05/22 04:20 Sickle Cells Not Reportable 05/05/22 04:20 Target Cells Not Reportable 05/05/22 04:20 Tear Drop Cells Not Reportable 05/05/22 04:20 Ovalocytes Not Reportable 05/05/22 04:20 Helmet Cells Not Reportable 05/05/22 04:20 Rangel-Ebony Bodies Not Reportable 05/05/22 04:20 Chauncey Rings Not Reportable 05/05/22 04:20 Stacey Cells Not Reportable 05/05/22 04:20 Bite Cells Not Reportable 05/05/22 04:20 Crenated Cell Not Reportable 05/05/22 04:20 Elliptocytes Not Reportable 05/05/22 04:20 Acanthocytes (Spur) Not Reportable 05/05/22 04:20 Rouleaux Not Reportable 05/05/22 04:20 Hemoglobin C Crystals Not Reportable 05/05/22 04:20 Schistocytes Not Reportable 05/05/22 04:20 Malaria parasites Not Reportable 05/05/22 04:20 Torrey Bodies Not Reportable 05/05/22 04:20 Hem Pathologist Commnt No 05/05/22 04:20 PT 17.6 Sec. (12.2-14.9) H 05/04/22 04:26 INR 1.29 (0.87-1.13) H 05/04/22 04:26 APTT 39.4 Sec. (24.2-36.6) H 05/03/22 04:24 Heparin Anti-Xa Level < 0.10 U.I./ml (0.3-0.7) L 04/24/22 10:20 ABG pH 7.482 pH Units (7.350-7.450) H 05/08/22 04:40 ABG pCO2 35.2 mm Hg 05/08/22 04:40 ABG pO2 103.9 mm Hg (80.0-90.0) H 05/08/22 04:40 ABG HCO3 25.8 mmol/L (20.0-26.0) 05/08/22 04:40 ABG O2 Saturation 98.0 % (95.0-99.0) 05/08/22 04:40 ABG O2 Content 11.1 (0.0-44) 05/08/22 04:40 ABG Base Excess 2.3 mmol/L (-2.0-3.0) 05/08/22 04:40 ABG Hemoglobin 8.1 gm/dl (12.0-16.0) L 05/08/22 04:40 ABG Carboxyhemoglobin 1.8 % (0.0-5.0) 05/08/22 04:40 ABG Methemoglobin 0.2 % (0.0-1.5) 05/08/22 04:40 Oxyhemoglobin 96.0 % (95.0-99.0) 05/08/22 04:40 FiO2 30 % 05/08/22 04:40 Sodium 132 mmol/L (137-145) L 05/08/22 04:06 Potassium 3.3 mmol/L (3.6-5.0) L 05/08/22 04:06 Chloride 93.2 mmol/L (98-107) L 05/08/22 04:06 Carbon Dioxide 28 mmol/L (22-30) 05/08/22 04:06 Anion Gap 14 mmol/L 05/08/22 04:06 BUN 36 mg/dL (7-17) H 05/08/22 04:06 Creatinine 2.9 mg/dL (0.6-1.2) H 05/08/22 04:06 Estimated GFR 20 ml/min 05/08/22 04:06 BUN/Creatinine Ratio 12 % 05/08/22 04:06 Glucose 145 mg/dL (65-100) H 05/08/22 04:06 POC Glucose 134 mg/dL (70-105) H 05/08/22 16:11 Lactic Acid 1.60 mmol/L (0.7-2.0) 04/19/22 07:14 Calcium 8.9 mg/dL (8.4-10.2) 05/08/22 04:06 Phosphorus 2.00 mg/dL (2.5-4.5) L D 05/08/22 04:06 Magnesium 1.80 mg/dL (1.7-2.3) 05/08/22 04:06 Total Bilirubin 0.30 mg/dL (0.1-1.2) 04/20/22 05:30 AST 11 units/L (5-40) 04/20/22 05:30 ALT 7 units/L (7-56) 04/20/22 05:30 Alkaline Phosphatase 101 units/L (35-129) 04/20/22 05:30 Ammonia 25.0 umol/L (25-60) 04/19/22 04:53 Troponin T 0.415 ng/mL (0.00-0.029) H* 04/19/22 04:53 Total Protein 6.4 g/dL (6.3-8.2) 04/20/22 05:30 Albumin 2.4 g/dL (3.9-5) L 04/20/22 05:30 Albumin/Globulin Ratio 0.6 % 04/20/22 05:30 Procalcitonin 42.42 ng/mL (<0.15) 05/05/22 04:20 TSH 1.700 mlU/mL (0.270-4.200) 04/19/22 04:53 Free T4 0.28 ng/dL (0.76-1.46) L 04/19/22 04:53 Total Cortisol 24.4 mcg/dL () 04/27/22 04:45 Random Vancomycin 9.6 ug/mL (0-40.0) 05/07/22 04:15 Coronavirus (PCR) Negative (Negative) 05/03/22 11:30 Hepatitis A IgM Ab Non-reactive (NonReactive) 04/19/22 04:53 Hep Bs Antigen Non-reactive (Negative) 04/19/22 04:53 Hep B Core IgM Ab Non-reactive (NonReactive) 04/19/22 04:53 Hepatitis C Antibody Non-reactive (NonReactive) 04/19/22 04:53 Blood Type A POSITIVE 05/04/22 05:30 Antibody Screen Negative 05/04/22 05:30 Crossmatch See Detail 05/04/22 05:30 Microbiology: Microbiology 05/04/22 16:30 Peripheral/Venous Blood Culture - Preliminary NO GROWTH AFTER 72 HOURS Cleary/IV: Voiding Method Incontinent Active Medications - Current Medications Current Medications: Generic Name Dose Route Start Last Admin Trade Name Freq PRN Reason Stop Dose Admin Acetaminophen 650 mg 04/22/22 20:12 05/03/22 23:41 Acetaminophen 325 Mg/10.15 Ml Oral Liqd Unit Dose PO 650 mg Q6H PRN Administration Pain MILD(1-3)/Fever >100.5/DRAKE Acetylcysteine 200 mg 05/05/22 14:00 05/08/22 13:26 Acetylcysteine 20% 200 Mg/1 Ml *For Inhalation Use* INHALATION 05/10/22 13:59 200 mg TID CONNOR Administration Albumin Human 25 gm 04/21/22 13:00 04/22/22 16:31 Albumin Human 25% (25 Gm/100 Ml) Inj IV 25 gm BIANCA PRN Administration Hypotension Albuterol 2.5 mg 04/21/22 08:30 04/24/22 16:51 Albuterol 2.5 Mg/3 Ml Nebu IH 2.5 mg Q3HRT PRN Administration Shortness Of Breath Albuterol/Ipratropium 1 ampul 04/21/22 14:00 05/08/22 13:26 Ipratropium/Albuterol Sulfate 3 Ml Ampul.Neb IH 1 ampul TIDRT CONNOR Administration Docusate Sodium 100 mg 05/01/22 22:00 05/08/22 11:27 Docusate Sodium 100 Mg/10 Ml Oral Liqd FEEDTUBE Not Given BID CONNOR Epoetin Lb-epbx 20,000 unit 04/23/22 12:00 05/06/22 19:23 Epoetin Lb-Epbx 20,000 Unit/1 Ml Vial IV 20,000 unit BIANCA PRN Administration HEMODIALYSIS Fentanyl 50 mcg 05/03/22 10:29 05/05/22 12:23 Fentanyl 100 Mcg/2 Ml Inj IV 25 mcg Q10MIN PRN Administration ANALGESIA Sodium Chloride 100 mls @ 999 mls/hr 04/22/22 09:12 Nacl 0.9% IV BIANCA PRN Hypotension Fentanyl Citrate 2,000 mcg in 100 mls @ 2.722 mls/hr 05/03/22 11:00 Fentanyl Drip Premix IV TITR CONNOR Protocol 1 MCG/KG/HR NORepinephrine/NS 8 MG-250 ML 8 mg in 250 mls @ 3.75 mls/hr 05/03/22 13:15 05/06/22 10:06 Norepinephrine/Ns 8 Mg-250 Ml (Double Conc) IV 0 mcg/min TITRATE CONNOR 0 mls/hr Titration Protocol 2 MCG/MIN Vasopressin 20 unit/ Sodium 101 mls @ 9.09 mls/hr 05/04/22 00:30 05/06/22 11:21 Chloride IV 0 units/min TITR CONNOR 0 mls/hr Infusion 0.03 UNITS/MIN Cefepime HCl 1 gm in 100 mls @ 200 mls/hr 05/04/22 18:00 05/08/22 17:36 Cefepime/Ns 1 Gm/100 Ml IV 100 mls/hr QPM CONNOR Administration Protocol Lansoprazole 30 mg 04/23/22 10:00 05/08/22 10:59 Lansoprazole 30 Mg Solutab FEEDTUBE 30 mg QDAY CONNOR Administration Lorazepam 0.5 mg 04/25/22 09:59 Lorazepam 0.5 Mg Tab FEEDTUBE QDAY PRN Anxiety Memantine 5 mg 04/25/22 10:00 05/08/22 10:57 Memantine 5 Mg Tab FEEDTUBE 5 mg BID CONNOR Administration Metoclopramide HCl 5 mg 04/19/22 09:55 Metoclopramide 10 Mg/2 Ml Inj IV Q6H PRN Nausea And Vomiting Midodrine 20 mg 04/26/22 14:00 05/08/22 14:10 Midodrine 10 Mg Tab FEEDTUBE 20 mg TID CONNOR Administration Naloxone HCl 0.1 mg 04/19/22 09:55 Naloxone 0.4 Mg/1 Ml Inj IV Q2MIN PRN Res Rate </= 8 or 02 SAT < 92% Polyethylene Glycol 17 gm 05/03/22 10:00 05/08/22 11:27 Polyethylene Glycol 3350 17 Gm Powder FEEDTUBE Not Given QDAY CONNOR Risperidone 0.5 mg 04/25/22 11:00 05/08/22 11:00 Risperidone 1 Mg Tab FEEDTUBE 0.5 mg BID CONNOR Administration Scopolamine 1 each 05/02/22 10:00 05/08/22 11:01 Scopolamine Transdermal Patch 72 Hr TD 1 each Q3D CONNOR Administration Senna 17.2 mg 04/23/22 10:00 05/08/22 11:27 Sennosides 8.6 Mg Tab FEEDTUBE Not Given BID CONNOR Sodium Chloride 10 ml 04/19/22 12:00 05/08/22 11:00 Sodium Chloride 0.9% 10 Ml Flush Syringe IV 10 ml BID CONNOR Administration Sodium Chloride 10 ml 04/19/22 11:19 Sodium Chloride 0.9% 10 Ml Flush Syringe IV PRN PRN LINE FLUSH Sodium Phosphate 250 mg 05/08/22 10:00 05/08/22 17:37 K-Phos Neutral 250 Mg Tab FEEDTUBE 05/09/22 09:59 250 mg QID CONNOR Administration Valproic Acid 750 mg 04/22/22 22:00 05/08/22 10:59 Valproic Acid 250 Mg/5 Ml Oral Liqd FEEDTUBE 750 mg BID CONNOR Administration Nutrition/Malnutrition Assess - Dietary Evaluation Nutrition/Malnutrition Findings: Nutrition Notes Start: 04/19/22 17:39 Freq: Status: Active Protocol: Document 05/05/22 14:44 WVALL (Rec: 05/05/22 14:55 WVALL [id number]) Nutrition Notes Initial or Follow up Reassessment Current Diagnosis CKD (stage V CKD),Sepsis, Respiratory Failure Other Pertinent Diagnosis Neurogenic dysphagia, metabolic encephalopathy, vascular dementia Current Diet No diet order in chart Labs/Tests Na 130 K 3.3 BUN 24 Cr 2.3 BG 163 Phos 1.5 Pertinent Medications Colace, Senokot, Miralax, Levophed gtt, Vasopressin gtt Height 5 ft 2 in Weight 54.43 kg [place] Body Weight (kg) 50.00 BMI 21.9 Weight Status Appropriate Subjective/Other Information PEG placed yesterday. Pt remains on vent and HD support . Observed Nepro infusing at 30ml/hr. No BM documented today. Bronchoscopy performed today. Percent of energy/protein needs met: 104% energy 90% pro Burn Absent Trauma Absent #1 Nutrition Diagnosis Inadequate oral intake, Swallowing difficulty Diagnosis Progress(for reassessment Continues documentation) Is patient on ventilator? Yes Is Patient Ambulatory and/or Out of Bed No REE-([facility]-confined to bed) [phone] Calculation Used for Recommendations [facility] Additional Notes Pro needs >1.2g/kg: >65g/day Fluid needs 1-1.5L/day Nutrition Intervention Nutrition Support: Continue Nepro at 30ml/hr with 130ml water flush q4h. Kcal 1,296 Protein (gm) 58 Carbohydrates (gm) 116 Fat (gm) 69 Fluid (mL) 523 Fiber (gm) 9 Goal #1 TF tolerance Goal #2 TF to meet at least 75% energy and pro needs Follow-Up By: 05/12/22 Additional Comments F/U: stable TF, vent status, wt, BM
[2022-05-08] MEDS: CEFEPIME/NS 1 GM/100 ML 1 GM/100 ML BAG IV SCH (17:36)
[2022-05-08 22:34] LABS: ABG Base Excess 2.3 mmol/L (-2.0-3.0); ABG Methemoglobin 0.5 % (0.0-1.5); ABG Oxygen Saturation 95.7 % (95.0-99.0); ABG PCO2 42.4 mm Hg; ABG PH 7.421 pH Units (7.350-7.450); ABG PO2 68.8 mm Hg (80.0-90.0)
--- NOTE | 2022-05-09 01:52 | XRay Report ---
CHEST 1 VIEW INDICATION / CLINICAL INFORMATION: follow up respiratory failure. COMPARISON: Chest x-ray 05/08/2022 FINDINGS: SUPPORT DEVICES: Endotracheal tube is in satisfactory position tip approximately 4 cm above the princess a. HEART / MEDIASTINUM: Heart size appears within normal limits. LUNGS / PLEURA: Opacities in the left mid and lower lung unchanged. Additional opacities lower right lung are stable. Right-sided pleural effusion slightly larger. BONES: No significant osseous abnormality. ADDITIONAL FINDINGS: No significant additional findings. IMPRESSION: 1. Right pleural effusion has slightly increased in size. 2. Bilateral lung opacities are unchanged. Signer Name: Darshan Mancilla II, MD Signed: 05/09/2022 1:47 AM Workstation Name: [id number]
[2022-05-09 05:03] LABS: Hematocrit 25.7 % (30.3-42.9); Mean Corpuscular HGB Conc 31 % (30-34); Mean Corpuscular Volume 90 fl (79-97); Platelet Count 101 K/mm3 (140-440); Red Blood Count 2.86 M/mm3 (3.65-5.03); Red Cell Distribution Width 16.2 % (13.2-15.2)
[2022-05-09 05:08] LABS: Calcium 8.7 mg/dL (8.4-10.2)
[2022-05-09] MEDS: ACETYLCYSTEINE 20% 200 MG/1 ML *FOR INHALATION USE INHALATION SCH ×3 (08:00→20:37)
[2022-05-09] MEDS: IPRATROPIUM/ALBUTEROL SULFATE 3 ML AMPUL.NEB IH SCH ×3 (08:00→20:37)
[2022-05-09] MEDS: MIDODRINE 10 MG TAB FEEDTUBE SCH ×3 (08:25→20:40)
--- NOTE | 2022-05-09 09:14 | Progress Note ---
Assessment and Plan Impression: * End stage renal disease * AMS * SVT s/p cardioversion * IJ thrombus * NSTEMI * SIRS * Hypotension * Anemia secondary to ESRD * Secondary hyperparathyroidism Plan: * HD today following CT w/ contrast * Continue HD TTS schedule * UF as tolerated * Midodrine TID * Maintain MAP>65, vasopressors prn * Avoid potential nephrotoxins * Epogen TIW prn * Nutrition via PEG * Dose medications for renal function Subjective Date of service: 05/09/22 Principal diagnosis: Neurogenic dysphagia Interval history: No acute events overnight. Objective - Vital Signs Vital signs: Vital Signs - 12hr 05/08/22 05/08/22 05/08/22 21:15 21:30 21:45 Temperature Pulse Rate 103 H 96 H 96 H Pulse Rate [ From Monitor] Respiratory 26 H 37 H 27 H Rate Blood Pressure 150/65 118/47 107/44 O2 Sat by Pulse 95 97 98 Oximetry 05/08/22 05/08/22 05/08/22 22:00 22:15 22:30 Temperature Pulse Rate 98 H 98 H 99 H Pulse Rate [ From Monitor] Respiratory 36 H 32 H 37 H Rate Blood Pressure 123/47 128/53 95/55 O2 Sat by Pulse 97 97 98 Oximetry 05/08/22 05/08/22 05/08/22 22:45 23:00 23:15 Temperature Pulse Rate 97 H 101 H 96 H Pulse Rate [ From Monitor] Respiratory 37 H 32 H 28 H Rate Blood Pressure 117/50 142/56 121/51 O2 Sat by Pulse 97 97 98 Oximetry 05/08/22 05/08/22 05/08/22 23:17 23:30 23:35 Temperature 98.8 F Pulse Rate 97 H 98 H Pulse Rate [ From Monitor] Respiratory 36 H 37 H Rate Blood Pressure 121/51 139/48 O2 Sat by Pulse 99 97 Oximetry 05/08/22 05/08/22 05/08/22 23:36 23:45 23:59 Temperature Pulse Rate 97 H 99 H 103 H Pulse Rate [ From Monitor] Respiratory 37 H 4 L Rate Blood Pressure 121/50 109/40 O2 Sat by Pulse 97 98 96 Oximetry 05/09/22 05/09/22 05/09/22 00:00 00:15 00:30 Temperature Pulse Rate 96 H 102 H 99 H Pulse Rate [ From Monitor] Respiratory 14 15 17 Rate Blood Pressure 109/40 102/42 112/48 O2 Sat by Pulse 98 98 98 Oximetry 05/09/22 05/09/22 05/09/22 00:45 01:00 01:15 Temperature Pulse Rate 94 H 96 H 101 H Pulse Rate [ From Monitor] Respiratory 17 15 15 Rate Blood Pressure 95/44 103/49 101/55 O2 Sat by Pulse 99 98 99 Oximetry 05/09/22 05/09/22 05/09/22 01:30 01:45 02:00 Temperature Pulse Rate 95 H 96 H 97 H Pulse Rate [ From Monitor] Respiratory 16 16 17 Rate Blood Pressure 103/44 102/47 102/47 O2 Sat by Pulse 100 99 100 Oximetry 05/09/22 05/09/22 05/09/22 02:15 02:30 02:45 Temperature Pulse Rate 96 H 99 H 100 H Pulse Rate [ From Monitor] Respiratory 17 15 18 Rate Blood Pressure 110/45 113/50 127/53 O2 Sat by Pulse 99 99 98 Oximetry 05/09/22 05/09/22 05/09/22 03:01 03:15 03:30 Temperature Pulse Rate 102 H 98 H 101 H Pulse Rate [ From Monitor] Respiratory 18 16 17 Rate Blood Pressure 128/51 120/45 108/50 O2 Sat by Pulse 98 99 98 Oximetry 05/09/22 05/09/22 05/09/22 03:34 03:45 03:55 Temperature 99 F Pulse Rate 102 H 96 H 101 H Pulse Rate [ From Monitor] Respiratory 16 7 L Rate Blood Pressure 109/45 115/49 O2 Sat by Pulse 97 98 97 Oximetry 05/09/22 05/09/22 05/09/22 04:00 04:15 04:30 Temperature Pulse Rate 99 H 102 H 97 H Pulse Rate [ From Monitor] Respiratory 18 22 16 Rate Blood Pressure 111/54 107/62 115/49 O2 Sat by Pulse 97 97 97 Oximetry 05/09/22 05/09/22 05/09/22 04:45 05:00 05:15 Temperature Pulse Rate 103 H 100 H 104 H Pulse Rate [ From Monitor] Respiratory 19 17 24 Rate Blood Pressure 114/67 127/38 127/38 O2 Sat by Pulse 97 97 97 Oximetry 05/09/22 05/09/22 05/09/22 05:30 05:45 06:00 Temperature Pulse Rate 100 H 99 H 101 H Pulse Rate [ From Monitor] Respiratory 21 18 20 Rate Blood Pressure 121/49 130/57 138/66 O2 Sat by Pulse 98 97 97 Oximetry 05/09/22 05/09/22 05/09/22 06:15 06:30 06:45 Temperature Pulse Rate 95 H 99 H 105 H Pulse Rate [ From Monitor] Respiratory 15 18 23 Rate Blood Pressure 111/45 132/64 130/67 O2 Sat by Pulse 98 96 97 Oximetry 05/09/22 05/09/22 05/09/22 07:00 07:07 07:15 Temperature 97.5 F L Pulse Rate 104 H 103 H Pulse Rate [ From Monitor] Respiratory 21 18 Rate Blood Pressure 137/61 127/67 O2 Sat by Pulse 97 100 97 Oximetry 05/09/22 05/09/22 05/09/22 07:30 07:40 07:45 Temperature Pulse Rate 103 H 104 H Pulse Rate [ 103 H From Monitor] Respiratory 17 15 16 Rate Blood Pressure 120/60 128/62 O2 Sat by Pulse 97 97 97 Oximetry 05/09/22 05/09/22 07:46 08:00 Temperature Pulse Rate 103 H 102 H Pulse Rate [ From Monitor] Respiratory 15 Rate Blood Pressure 124/62 O2 Sat by Pulse 98 Oximetry - General Appearance General appearance: well-developed, well-nourished, intubated EENT: ATNC, other (ETT in place) Respiratory: Present: Other (coarse breath sounds) Cardiology: regular, S1S2 Gastrointestinal: no tenderness, no distended Integumentary: warm and dry Neurologic: other (awake, alert) Musculoskeletal: other (+ edema upper/lower extremities) - Lab 05/09/22 04:25 05/09/22 04:25 Most recent lab results ABG pH 7.421 pH Units (7.350-7.450) 05/08/22 21:00 ABG pCO2 42.4 mm Hg 05/08/22 21:00 ABG pO2 68.8 mm Hg (80.0-90.0) L 05/08/22 21:00 ABG HCO3 27.0 mmol/L (20.0-26.0) H 05/08/22 21:00 ABG O2 Saturation 95.7 % (95.0-99.0) 05/08/22 21:00 Calcium 8.7 mg/dL (8.4-10.2) 05/09/22 04:25 Phosphorus 3.00 mg/dL (2.5-4.5) D 05/09/22 04:25 Magnesium 1.80 mg/dL (1.7-2.3) 05/09/22 04:25 Medications & Allergies - Medications Allergies/Adverse Reactions: Allergies buspirone [From BuSpar] Allergy (Verified 04/18/22 12:22) Unknown Penicillins Allergy (Verified 04/18/22 12:22) Rash corn Adverse Reaction (Verified 04/18/22 12:22) Unknown Home Medications: Home Medications Medication Instructions Recorded Confirmed Last Taken Type Sevelamer Carbonate [Renvela] 0.8 gram PO TIDWM 09/02/20 02/02/22 05/31/21 History HYDROcodone/APAP 5-325 [[place] 1 each PO Q4HR PRN #30 tablet 05/18/21 02/02/22 Unknown Rx 5-325 mg TAB] ALBUTEROL NEB's [Proventil 0.083% 2.5 mg IH Q3HRT PRN #1 nebu 03/03/22 Unknown Rx NEBS] Clopidogrel [Plavix] 75 mg PO QDAY #90 tablet 03/03/[address] [Sarina Serrano] 750 mg PO BID #60 tablet 03/03/22 Unknown Rx LORazepam [Ativan] 1 mg PO DAILY #30 tab 03/03/22 Unknown Rx Memantine Xr [Namenda Xr] 5 mg PO DAILY #30 cap 03/03/22 Unknown Rx Midodrine [Proamatine] 10 mg PO TID #90 tab 03/03/22 Unknown Rx Pantoprazole [Protonix TAB] 40 mg PO DAILY #30 tab 03/03/22 Unknown Rx QUEtiapine [SEROquel] 400 mg PO BID #60 tab 03/03/22 Unknown Rx risperiDONE [RisperDAL] 0.5 mg PO BID #60 tab 03/03/22 Unknown Rx Active Medications: Generic Name Dose Route Start Last Admin Trade Name Freq PRN Reason Stop Dose Admin Acetaminophen 650 mg 04/22/22 20:12 05/03/22 23:41 Acetaminophen 325 Mg/10.15 Ml Oral Liqd Unit Dose PO 650 mg Q6H PRN Administration Pain MILD(1-3)/Fever >100.5/DRAKE Acetylcysteine 200 mg 08/19/22 14:00 05/08/22 19:30 Acetylcysteine 20% 200 Mg/1 Ml *For Inhalation Use* INHALATION 05/10/22 13:59 200 mg TID CONNOR Administration Albumin Human 25 gm 04/21/22 13:00 04/22/22 16:31 Albumin Human 25% (25 Gm/100 Ml) Inj IV 25 gm BIANCA PRN Administration Hypotension Albuterol 2.5 mg 04/21/22 08:30 04/24/22 16:51 Albuterol 2.5 Mg/3 Ml Nebu IH 2.5 mg Q3HRT PRN Administration Shortness Of Breath Albuterol/Ipratropium 1 ampul 04/21/22 14:00 05/08/22 19:30 Ipratropium/Albuterol Sulfate 3 Ml Ampul.Neb IH 1 ampul TIDRT CONNOR Administration Docusate Sodium 100 mg 05/01/22 22:00 05/08/22 20:59 Docusate Sodium 100 Mg/10 Ml Oral Liqd FEEDTUBE Not Given BID [facility] Epoetin Lb-epbx 20,000 unit 04/23/22 12:00 05/06/22 19:23 Epoetin Lb-Epbx 20,000 Unit/1 Ml Vial IV 20,000 unit BIANCA PRN Administration HEMODIALYSIS Fentanyl 50 mcg 05/03/22 10:29 05/05/22 12:23 Fentanyl 100 Mcg/2 Ml Inj IV 25 mcg Q10MIN PRN Administration ANALGESIA Sodium Chloride 100 mls @ 999 mls/hr 04/22/22 09:12 Nacl 0.9% IV BIANCA PRN Hypotension Fentanyl Citrate 2,000 mcg in 100 mls @ 2.722 mls/hr 05/03/22 11:00 Fentanyl Drip Premix IV TITR CONNOR Protocol 1 MCG/KG/HR NORepinephrine/NS 8 MG-250 ML 8 mg in 250 mls @ 3.75 mls/hr 05/03/22 13:15 05/06/22 10:06 Norepinephrine/Ns 8 Mg-250 Ml (Double Conc) IV 0 mcg/min TITRATE CONNOR 0 mls/hr Titration Protocol 2 MCG/MIN Vasopressin 20 unit/ Sodium 101 mls @ 9.09 mls/hr 05/04/22 00:30 05/06/22 11:21 Chloride IV 0 units/min TITR CONNOR 0 mls/hr Infusion 0.03 UNITS/MIN Lansoprazole 30 mg 04/23/22 10:00 05/08/22 10:59 Lansoprazole 30 Mg Solutab FEEDTUBE 30 mg QDAY CONNOR Administration Lorazepam 0.5 mg 04/25/22 09:59 Lorazepam 0.5 Mg Tab FEEDTUBE QDAY PRN Anxiety Memantine 5 mg 04/25/22 10:00 05/08/22 20:59 Memantine 5 Mg Tab FEEDTUBE 5 mg BID CONNOR Administration Metoclopramide HCl 5 mg 04/19/22 09:55 Metoclopramide 10 Mg/2 Ml Inj IV Q6H PRN Nausea And Vomiting Midodrine 20 mg 04/26/22 14:00 05/09/22 08:25 Midodrine 10 Mg Tab FEEDTUBE 20 mg TID CONNOR Administration Naloxone HCl 0.1 mg 04/19/22 09:55 Naloxone 0.4 Mg/1 Ml Inj IV Q2MIN PRN Res Rate </= 8 or 02 SAT < 92% Polyethylene Glycol 17 gm 05/03/22 10:00 05/08/22 11:27 Polyethylene Glycol 3350 17 Gm Powder FEEDTUBE Not Given QDAY CONNOR Risperidone 0.5 mg 04/25/22 11:00 05/08/22 20:59 Risperidone 1 Mg Tab FEEDTUBE 0.5 mg BID CONNOR Administration Scopolamine 1 each 05/02/22 10:00 05/08/22 11:01 Scopolamine Transdermal Patch 72 Hr TD 1 each Q3D CONNOR Administration Senna 17.2 mg 04/23/22 10:00 05/08/22 20:59 Sennosides 8.6 Mg Tab FEEDTUBE Not Given BID CONNOR Sodium Chloride 10 ml 04/19/22 12:00 05/08/22 20:59 Sodium Chloride 0.9% 10 Ml Flush Syringe IV 10 ml BID CONNOR Administration Sodium Chloride 10 ml 04/19/22 11:19 Sodium Chloride 0.9% 10 Ml Flush Syringe IV PRN PRN LINE FLUSH Sodium Phosphate 250 mg 05/08/22 10:00 05/08/22 20:59 K-Phos Neutral 250 Mg Tab FEEDTUBE 05/09/22 09:59 250 mg QID CONNOR Administration Valproic Acid 750 mg 04/22/22 22:00 05/08/22 20:59 Valproic Acid 250 Mg/5 Ml Oral Liqd FEEDTUBE 750 mg BID CONNOR Administration
[2022-05-09] MEDS: risperiDONE 1 MG TAB FEEDTUBE SCH ×2 (09:26→21:26)
[2022-05-09] MEDS: LANSOPRAZOLE 30 MG SOLUTAB FEEDTUBE SCH (09:26)
[2022-05-09] MEDS: VALPROIC ACID 250 MG/5 ML ORAL LIQD FEEDTUBE SCH ×2 (09:26→21:26)
[2022-05-09] MEDS: MEMANTINE 5 MG TAB FEEDTUBE SCH ×2 (09:26→21:26)
[2022-05-09] MEDS: POLYETHYLENE GLYCOL 3350 17 GM POWDER FEEDTUBE SCH (09:40)
[2022-05-09] MEDS: DOCUSATE SODIUM 100 MG/10 ML ORAL LIQD FEEDTUBE SCH ×2 (09:40→21:26)
[2022-05-09] MEDS: SENNOSIDES 8.6 MG TAB FEEDTUBE SCH ×2 (09:40→21:26)
--- NOTE | 2022-05-09 11:56 | Cat Scan Report ---
CTA CHEST WITH CONTRAST INDICATION / CLINICAL INFORMATION: Hypoxemic Respiratory Failure; MRSA Pneumonia. TECHNIQUE: Axial CT images were obtained through the chest after injection of 100 mL Omnipaque 350 IV contrast. 3 plane MIP and/or 3D reconstructions were produced. All CT scans at this location are per formed using CT dose reduction for ALARA by means of automated exposure control. COMPARISON: CT dated 01/26/21 FINDINGS: PULMONARY EMBOLUS: None. THORACIC AORTA: No significant abnormality. HEART: No significant abnormality. CORONARY ARTERY CALCIFICATION: Absent -- None. MEDIASTINUM / PAT: No significant abnormality. PLEURA: Large right and moderate-sized left pleural effusions. No pneumothorax. LUNGS: Passive atelectasis of the lower lungs. Patchy groundglass opacities in the upper lobes. Endot brandon tube in expected position. ADDITIONAL FINDINGS: Moderate body wall edema. Patent right upper arm AV graft. UPPER ABDOMEN: No acute findings. SKELETAL STRUCTURES: No significant osseous abnormality. IMPRESSION: 1. No CT evidence for pulmonary embolism. 2. Large right and moderate-sized left pleural effusions with moderate body wall edema. 3. Groundglass pulmonary opacities in the upper lobes likely representing atypical pneumonia. Signer Name: Dominique Courtney MD Signed: 05/09/2022 11:52 AM Workstation Name: [id number]
--- NOTE | 2022-05-09 12:57 | Progress Note ---
Assessment and Plan Assessment and plan: This is a 66-year-old female with HTN, GERD, seizure disorder, vascular dementia, ESRD on HD, chronic hypertension, bipolar, schizophrenia, anxiety admitted with acute hypoxic respiratory failure, acute on chronic hypotension, acute on chronic metabolic encephalopathy and SVT Neuro: h/o vascular dementia, schizophrenia, bipolar, anxiety disorder -Continue home Seroquel at reduced dose -As needed Ativan -Reorientation as needed -Maintain sleep-wake cycle -As needed analgesia -Continue home memantine, respiradol, valproic acid -CT head showed no acute intracranial abnormalities, no significant interval changes -Psych consulted, appreciate recommendations Cardiac: SVT s/p cardioversion, chronic hypotension, NSTEMI type II -Cardiology consulted, appreciate recommendations -Blood pressure monitoring per protocol -s/p vasopressor support with Levophed -Cortisol 24.4 -s/p Fludrocortisone for 4 doses -Midodrine 20mg TID -Echo 01/31/2022-EF 60 to 65%. Doppler flow pattern suggests impaired LV relaxation. Right ventricle systolic function is normal trace aortic regurgitation. Trace mitral regurgitation. -Lipitor, Plavix Respiratory: Acute hypoxic respiratory failure -CCM consulted, appreciate recommendations -Chest ultrasound showed bilateral pleural effusions, right greater than left -05/05 s/p therapeutic bronch at the bedside -Intubated 05/01 for bronch with 7.5 oett at 22 at the lips -ABG abg and CXR noted -AM vent settings: AC Rate 14, TV 450, Peep 6, FiO2 30% -See RT notes for titration -Pulmonary hygiene -SPO2 monitor per protocol -CTA chest with contrast shows large right and moderate-sized left pleural effusions with moderate body wall edema, groundglass pulmonary opacities in the upper lobes likely representing atypical pneumonia, no CT evidence of pulmonary embolism. -Chest US pending GI: Moderate protein calorie malnutrition, dysphagia s/p PEG -GI consulted -s/p peg 05/04 -24 hours + 1454 mL -PPI -TF -BR: Senokot : ESRD on HD, hypophosphatemia, hypokalemia -Nephrology consulted, appreciate recommendations -HD per nephrology (TThSat) -Monitor intake and output -Renally dose medications -Avoid nephrotoxic medications -Epogen 3 times daily -Trend BMP ID: Septic Shock, MRSA PNA -ID consulted, appreciate recommendations -f/u blood culture -04/19 blood cultures x2 NGTD, bronch wash with MRSA -ABX therapy with vanco -Monitor WBC and temperature curve Endo: NAD -Avoid hypoglycemia Heme: Anemia of chronic disease, RIJ thrombus (chronic), leukocytosis -Vascular surgery consulted, appreciate recommendations -no need for heparin gtt per vascular surgery -Trend CBC -Transfuse hemoglobin less than 7 -s/p 3 unit PRBC -Epogen 3 times daily -SCDs to BLE while in bed The high probability of a clinically significant, sudden or life threatening deterioration of the [multiple] system(s) required my full and direct attention, intervention and personal management. The aggregate critical care time was [60] minutes. This time is in addition to time spent performing reported procedures but includes the following: [x] Data Review and interpretation [x] Patient assessment and monitoring of vital signs [x] Documentation [x] Medication orders and management Disposition Plan: icu Total Time Spent with Patient (Minutes): 60 History Interval history: This is a 66-year-old female with HTN, GERD, seizure disorder, vascular dementia, ESRD on HD (TTS), OA, chronic hypotension, bipolar, schizophrenia, anxiety examined mobility with a resident of [facility] present to the emergency department on 04/19 with altered mental status and for being combative causing her to miss several days of hemodialysis. On presentation patient was found to be more hypertensive than usual and on room air with oxygen saturations in the 90s and she subsequently went into SVT into the 150s requiring cardioversion under conscious sedation. Patient was admitted to the hospital service with acute hypoxic respiratory failure, acute on chronic hypotension, acute on chronic metabolic encephalopathy, SVT, hyperkalemia, NSTEMI type II to the ICU with consults to CCM, nephrology cardiology and psych. Hospital Course to Date: 04/20: Patient went into Afib with RVR overnight, now on amiodarone gtt per cardio. Patient remains in AFib with RVR this am, HR in the 120-140s. BP marginal on Levophed gtt, currently not a candidate for BB. Midodrine increased to 15mg TID. 2D Echo pending. On heparin gtt per protocol. No HD today per nephro due to hypotension and tachycardia. 04/21: Converted to SR this am, remains on Amiodarone and heparin. Awaiting cardio final recommendations. Still on Levophed gtt for low BP, given patient history of chronic hypotension, Wean pressor for MAP goal of 60s. Patient is pocketing foods, currently NPO, awaiting speech eval and treat. 04/22: Patient passed speech swallow eval yesterday, however, patient is refusing PO intakes including meds. Will insert DHT for nutrition and meds administration. Patient remains in SR this am, amiodaron gtt transitioned to PO per cardio. Patient remains on heparin and Levophed gtt. Patient has not received PO midrodrine for 24hrs, resume meds once DHT is inserted. Keep femoral CVC for another 24hrs, anticipating will be able to wean off pressor once patient receive midodrine. Will reassess in the morning. No HD overnight, unable to cannulate AVF, plan to attempt again today per Nephro. Possible IR/Vascular surgery consult if unsuccessful again today. 04/23: Mentation a lot better this am. DHT was inserted, meds resumed and TF initiated. Levophed gtt increased overnight due to worsen hypotension, suspected it is due to sedative agents. Seroquel decreased to 200mg BID and scheduled ativan switched to PRN. Continue midodrine TID and wean off levophed gtt for MAP goal of 60. Patient tolerated HD yesterday, continue iHD per Nephrology. CCM recommendations noted, Chest US ordered for pleural effusion. 04/24: RN instructed to wean Levophed off, goal MAP of 60. Heparin drip stopped due to decreasing hemoglobin. 04/25: ST had cleared the patient for pured diet which will be started today, hemodialysis planned for today, patient was to be anemic and will receive 1 unit PRBC with HD. We will increase midodrine to 20 mg 3 times daily if patient becomes hypotensive during dialysis. Per CCM. Decrease in seroqoul but will increase if needed 04/26: Patient agreeable to PEG, GI consulted for placement. Femoral line removed 04/27: No acute events reported overnight, patient has been cardiac cleared for PEG tube placement. Possible PEG in the a.m. This afternoon attempted to place IJ CVL which was unsuccessful and Dr. Mcguire ultimately placed femoral CVL for the initiation of Levophed. HD scheduled for today. 04/28: Patient initially started on Levophed yesterday and she received a femoral CVL. 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 Vascular surgery was consulted. Patient also noted to be anemic and received 1 unit PRBC today. 04/29: Possible hemodialysis today, patient was able to be weaned off of Levophed today. Hemoglobin responded well to 1 unit PRBC. Awaiting trach/PEG placement. Patient will not need to be started on heparin drip per vascular surg curry. No acute events reported overnight. 04/30: HD yesterday without removal of fluids, patient needs NT suctioning. Updated son today. 05/01: Patient with increase mucous production and is unable to fully clear her airway, Rhonchi auscultated throughout her lungs this am. SPO2 at 90 to 94% on 3L NC. D/W CCM, patient is high risk for aspiration will placed patient on heated HF at 40L for now instead of Bipap. Nasal bleeding also noted, mostly due to NT suctioning. Refrain from NT suctioning for now due to bleeding, only oral suctioning. PO seroquel held this amP atient is AAO, appropriate, and following commands. Levophed gtt weaned off, patient remains hemodynamically stable. Will discuss Nephro for possible fluid removal tonight or early tomorrow. Very low threshold for intubation. Patient's condition and plan of care, including possible intubation, thoroughly discussed with patient's son-Raymundo Randolph at . Patient's son verbalized understanding of the info provided and agreed with intubation if necessary. 05/02: Remains on HHFL at 40% and 40L, mentation is unchanged. HD at the bedside, plan for possible UF with fluid removal today. Continue O2 supplementation and wean as tolerated, for SPO2 above 92%. Repeat CXR in the am. Patient vital signs remains stable, still off pressors. Plan for possible PEG-tube placement by GI tomorrow, NPO after MN. Possible fistulogram for RIJ thrombus on or sunday per Vascular Surgery. 05/03: Complete white-out of right side from this am CXR, probable mucus plug. S/p intubation and bronch at the bedside by [facility]. Patient remains sedated and required short duration of Levophed gtt during the procedure. Pressor was wean off, VSS. Plan for CPT and mucomyst Q12hrs. Repeat CXR in the am. PEG-Tube placement postpone for possibly tomorrow if patient remains stable. Possible fistulogram for RIJ thrombus on or Sunday per Vascular Surgery. 05/04: Remains on the vent, easily arousable. High fevers overnight with spike in leukocytosis, now on 2 pressors. [facility] d/w ID, recommendations to repeat blood cultures and empiric IV abx- Cefepine and Vanco. low H&H this am, no s/s of any active bleeding, 1units of PRBCs during iHD today. S/p PEG-tube placement at this bedside this am by GI, no complications noted. Resume TF once clear by GI. 05/05: Remains on low vent setting. This am CXR with increase opacities on the right side again today, s/p therapeutic bronch at the bedside today by [facility]. Repeat CXR in the am. Remains with low grade fevers and on 2 pressors. Bronchial wash with Staph A. and blood cultures pending. Continue current IV Abx per ID. 05/06: Stable on the vent this am. Only on low dose pressors, MAP above 65. CXR with some improvement, peep dropped to 8 per [facility]. Continue CPT and Mucomyst TID. If patient remains stable overnight, possible PSV trial in the am. Fevers and leukocytosis improved. Continue current IV Abx per ID. Continue iHD per Nephro 05/07: Remains stable on the vent, afebrile and off pressors this am VSS. This am CXR reviewed, increased opacities on the right side. Patient remains on low vent settings. Further management per [facility], continue CPT and Mucomyst TID. Bronch wash with MRSA, blood cultures pending. Continue current IV Abx per ID. 05/08: We will replete potassium, [facility] would like a CTA chest but evaluate atelectasis/consolidation/effusions. LTAC evaluation 05/09: HD today, CTA chest completed. CPAP yesterday but rested on AC overnight. Hospitalist Physical - Constitutional Vitals: Temp Pulse Resp BP Pulse Ox 98.0 F 96 H 15 121/52 100 05/09/22 11:36 05/09/22 11:45 05/09/22 11:15 05/09/22 11:45 05/09/22 11:15 General appearance: Present: no acute distress, other (intubated) - EENT Eyes: Present: PERRL, EOM intact ENT: hearing intact, clear oral mucosa - Neck Neck: Present: normal ROM - Respiratory Respiratory effort: normal Respiratory: bilateral: diminished - Cardiovascular Rhythm: regular Heart Sounds: Present: S1 & S2. Absent: systolic murmur, diastolic murmur - Extremities Extremities: no ischemia, pulses intact, pulses symmetrical Extremity abnormal: edema Peripheral Pulses: within normal limits - Abdominal General gastrointestinal: soft, non-tender, non-distended, normal bowel sounds - Integumentary Integumentary: Present: warm, dry - Psychiatric Psychiatric: cooperative - Neurologic Neurologic: CNII-XII intact, moves all extremities - Allied Health Allied health notes reviewed: nursing, RT, social work HEART Score - HEART Score Troponin: Troponin T 0.415 ng/mL (0.00-0.029) H* 04/19/22 04:53 Results - Labs CBC & Chem 7: 05/09/22 04:25 05/09/22 04:25 Labs: Laboratory Last Values WBC 6.3 K/mm3 (4.5-11.0) 05/09/22 04:25 RBC 2.86 M/mm3 (3.65-5.03) L 05/09/22 04:25 Hgb 8.0 gm/dl (10.1-14.3) L 05/09/22 04:25 Hct 25.7 % (30.3-42.9) L 05/09/22 04:25 MCV 90 fl (79-97) 05/09/22 04:25 MCH 28 pg (28-32) 05/09/22 04:25 MCHC 31 % (30-34) 05/09/22 04:25 RDW 16.2 % (13.2-15.2) H 05/09/22 04:25 Plt Count 101 K/mm3 (140-440) L 05/09/22 04:25 Lymph % (Auto) 26.7 % (13.4-35.0) 04/20/22 05:30 [place] % (Auto) 15.2 % (0.0-7.3) H 04/20/22 05:30 Eos % (Auto) 3.8 % (0.0-4.3) 04/20/22 05:30 Baso % (Auto) 1.2 % (0.0-1.8) 04/20/22 05:30 Lymph # (Auto) 1.1 K/mm3 (1.2-5.4) L 04/20/22 05:30 [place] # (Auto) 0.6 K/mm3 (0.0-0.8) 04/20/22 05:30 Eos # (Auto) 0.2 K/mm3 (0.0-0.4) 04/20/22 05:30 Baso # (Auto) 0.0 K/mm3 (0.0-0.1) 04/20/22 05:30 Add Manual Diff Complete 05/05/22 04:20 Total Counted 100 05/05/22 04:20 Seg Neutrophils % 53.1 % (40.0-70.0) 04/20/22 05:30 Seg Neuts % (Manual) 86.0 % (40.0-70.0) H 05/05/22 04:20 Band Neutrophils % 3.0 % 05/05/22 04:20 Lymphocytes % (Manual) 4.0 % (13.4-35.0) L 05/05/22 04:20 Reactive Lymphs % (Man) 0 % 05/05/22 04:20 Monocytes % (Manual) 6.0 % (0.0-7.3) 05/05/22 04:20 Eosinophils % (Manual) 1.0 % (0.0-4.3) 05/05/22 04:20 Basophils % (Manual) 0 % (0.0-1.8) 05/05/22 04:20 Metamyelocytes % 0 % 05/05/22 04:20 Myelocytes % 0 % 05/05/22 04:20 Promyelocytes % 0 % 05/05/22 04:20 Blast Cells % 0 % 05/05/22 04:20 Nucleated RBC % 1.0 % (0.0-0.9) H 05/05/22 04:20 Seg Neutrophils # 2.2 K/mm3 (1.8-7.7) 04/20/22 05:30 Seg Neutrophils # Man 11.0 K/mm3 (1.8-7.7) H 05/05/22 04:20 Band Neutrophils # 0.4 K/mm3 05/05/22 04:20 Lymphocytes # (Manual) 0.5 K/mm3 (1.2-5.4) L 05/05/22 04:20 Abs React Lymphs (Man) 0.0 K/mm3 05/05/22 04:20 Monocytes # (Manual) 0.8 K/mm3 (0.0-0.8) 05/05/22 04:20 Eosinophils # (Manual) 0.1 K/mm3 (0.0-0.4) 05/05/22 04:20 Basophils # (Manual) 0.0 K/mm3 (0.0-0.1) 05/05/22 04:20 Metamyelocytes # 0.0 K/mm3 05/05/22 04:20 Myelocytes # 0.0 K/mm3 05/05/22 04:20 Promyelocytes # 0.0 K/mm3 05/05/22 04:20 Blast Cells # 0.0 K/mm3 05/05/22 04:20 WBC Morphology Not Reportable 05/05/22 04:20 Hypersegmented Neuts Not Reportable 05/05/22 04:20 Hyposegmented Neuts Not Reportable 05/05/22 04:20 Hypogranular Neuts Not Reportable 05/05/22 04:20 Smudge Cells Not Reportable 05/05/22 04:20 Toxic Granulation Not Reportable 05/05/22 04:20 Toxic Vacuolation Not Reportable 05/05/22 04:20 Dohle Bodies Not Reportable 05/05/22 04:20 Pelger-Huet Anomaly Not Reportable 05/05/22 04:20 Ubaldo Rods Not Reportable 05/05/22 04:20 Platelet Estimate Consistent w auto 05/05/22 04:20 Clumped Platelets Not Reportable 05/05/22 04:20 Plt Clumps, EDTA Not Reportable 05/05/22 04:20 Large Platelets Not Reportable 05/05/22 04:20 Giant Platelets Not Reportable 05/05/22 04:20 Platelet Satelliting Not Reportable 05/05/22 04:20 Plt Morphology Comment Not Reportable 05/05/22 04:20 RBC Morphology Not Reportable 05/05/22 04:20 Dimorphic RBCs Not Reportable 05/05/22 04:20 Polychromasia Not Reportable 05/05/22 04:20 Hypochromasia 2+ 05/05/22 04:20 Poikilocytosis Not Reportable 05/05/22 04:20 Anisocytosis 1+ 05/05/22 04:20 Microcytosis Not Reportable 05/05/22 04:20 Macrocytosis Not Reportable 05/05/22 04:20 Spherocytes Not Reportable 05/05/22 04:20 Pappenheimer Bodies Not Reportable 05/05/22 04:20 Sickle Cells Not Reportable 05/05/22 04:20 Target Cells Not Reportable 05/05/22 04:20 Tear Drop Cells Not Reportable 05/05/22 04:20 Ovalocytes Not Reportable 05/05/22 04:20 Helmet Cells Not Reportable 05/05/22 04:20 [place] Bodies Not Reportable 05/05/22 04:20 Morning Sun Rings Not Reportable 05/05/22 04:20 [place] Cells Not Reportable 05/05/22 04:20 Bite Cells Not Reportable 05/05/22 04:20 Crenated Cell Not Reportable 05/05/22 04:20 Elliptocytes Not Reportable 05/05/22 04:20 Acanthocytes (Spur) Not Reportable 05/05/22 04:20 Rouleaux Not Reportable 05/05/22 04:20 Hemoglobin C Crystals Not Reportable 05/05/22 04:20 Schistocytes Not Reportable 05/05/22 04:20 Malaria parasites Not Reportable 05/05/22 04:20 [place]rey Bodies Not Reportable 05/05/22 04:20 Hem Pathologist Commnt No 05/05/22 04:20 PT 17.6 Sec. (12.2-14.9) H 05/04/22 04:26 INR 1.29 (0.87-1.13) H 05/04/22 04:26 APTT 39.4 Sec. (24.2-36.6) H 05/03/22 04:24 Heparin Anti-Xa Level < 0.10 U.I./ml (0.3-0.7) L 04/24/22 10:20 ABG pH 7.421 pH Units (7.350-7.450) 05/08/22 21:00 ABG pCO2 42.4 mm Hg 05/08/22 21:00 ABG pO2 68.8 mm Hg (80.0-90.0) L 05/08/22 21:00 ABG HCO3 27.0 mmol/L (20.0-26.0) H 05/08/22 21:00 ABG O2 Saturation 95.7 % (95.0-99.0) 05/08/22 21:00 ABG O2 Content 11.1 (0.0-44) 05/08/22 21:00 ABG Base Excess 2.3 mmol/L (-2.0-3.0) 05/08/22 21:00 ABG Hemoglobin 8.4 gm/dl (12.0-16.0) L 05/08/22 21:00 ABG Carboxyhemoglobin 1.8 % (0.0-5.0) 05/08/22 21:00 ABG Methemoglobin 0.5 % (0.0-1.5) 05/08/22 21:00 Oxyhemoglobin 93.4 % (95.0-99.0) L 05/08/22 21:00 FiO2 30 % 05/08/22 21:00 Sodium 132 mmol/L (137-145) L 05/09/22 04:25 Potassium 3.5 mmol/L (3.6-5.0) L 05/09/22 04:25 Chloride 93.7 mmol/L (98-107) L 05/09/22 04:25 Carbon Dioxide 25 mmol/L (22-30) 05/09/22 04:25 Anion Gap 17 mmol/L 05/09/22 04:25 BUN 42 mg/dL (7-17) H 05/09/22 04:25 Creatinine 3.0 mg/dL (0.6-1.2) H 05/09/22 04:25 Estimated GFR 19 ml/min 05/09/22 04:25 BUN/Creatinine Ratio 14 % 05/09/22 04:25 Glucose 145 mg/dL (65-100) H 05/09/22 04:25 POC Glucose 142 mg/dL (70-105) H 05/08/22 23:46 Lactic Acid 1.60 mmol/L (0.7-2.0) 04/19/22 07:14 Calcium 8.7 mg/dL (8.4-10.2) 05/09/22 04:25 Phosphorus 3.00 mg/dL (2.5-4.5) D 05/09/22 04:25 Magnesium 1.80 mg/dL (1.7-2.3) 05/09/22 04:25 Total Bilirubin 0.30 mg/dL (0.1-1.2) 04/20/22 05:30 AST 11 units/L (5-40) 04/20/22 05:30 ALT 7 units/L (7-56) 04/20/22 05:30 Alkaline Phosphatase 101 units/L (35-129) 04/20/22 05:30 Ammonia 25.0 umol/L (25-60) 04/19/22 04:53 Troponin T 0.415 ng/mL (0.00-0.029) H* 04/19/22 04:53 Total Protein 6.4 g/dL (6.3-8.2) 04/20/22 05:30 Albumin 2.4 g/dL (3.9-5) L 04/20/22 05:30 Albumin/Globulin Ratio 0.6 % 04/20/22 05:30 Procalcitonin 42.42 ng/mL (<0.15) 05/05/22 04:20 TSH 1.700 mlU/mL (0.270-4.200) 04/19/22 04:53 Free T4 0.28 ng/dL (0.76-1.46) L 04/19/22 04:53 Total Cortisol 24.4 mcg/dL () 04/27/22 04:45 Random Vancomycin 9.6 ug/mL (0-40.0) 05/07/22 04:15 Coronavirus (PCR) Negative (Negative) 05/03/22 11:30 Hepatitis A IgM Ab Non-reactive (NonReactive) 04/19/22 04:53 Hep Bs Antigen Non-reactive (Negative) 04/19/22 04:53 Hep B Core IgM Ab Non-reactive (NonReactive) 04/19/22 04:53 Hepatitis C Antibody Non-reactive (NonReactive) 04/19/22 04:53 Blood Type A POSITIVE 05/04/22 05:30 Antibody Screen Negative 05/04/22 05:30 Crossmatch See Detail 05/04/22 05:30 Microbiology: Microbiology 05/04/22 16:30 Peripheral/Venous Blood Culture - Preliminary NO GROWTH AFTER 4 DAYS Cleary/IV: Voiding Method Diaper Active Medications - Current Medications Current Medications: Generic Name Dose Route Start Last Admin Trade Name Freq PRN Reason Stop Dose Admin Acetaminophen 650 mg 04/22/22 20:12 05/03/22 23:41 Acetaminophen 325 Mg/10.15 Ml Oral Liqd Unit Dose PO 650 mg Q6H PRN Administration Pain MILD(1-3)/Fever >100.5/DRAKE Acetylcysteine 200 mg 05/05/22 14:00 05/09/22 08:00 Acetylcysteine 20% 200 Mg/1 Ml *For Inhalation Use* INHALATION 05/10/22 13 :59 200 mg TID CONNOR Administration Albumin Human 25 gm 04/21/22 13:00 04/22/22 16:31 Albumin Human 25% (25 Gm/100 Ml) Inj IV 25 gm BIANCA PRN Administration Hypotension Albuterol 2.5 mg 04/21/22 08:30 04/24/22 16:51 Albuterol 2.5 Mg/3 Ml Nebu IH 2.5 mg Q3HRT PRN Administration Shortness Of Breath Albuterol/Ipratropium 1 ampul 04/21/22 14:00 05/09/22 08:00 Ipratropium/Albuterol Sulfate 3 Ml Ampul.Neb IH 1 ampul TIDRT CONNOR Administration Docusate Sodium 100 mg 05/01/22 22:00 05/09/22 09:40 Docusate Sodium 100 Mg/10 Ml Oral Liqd FEEDTUBE Not Given BID [facility] Epoetin Lb-epbx 20,000 unit 04/23/22 12:00 05/06/22 19:23 Epoetin Lb-Epbx 20,000 Unit/1 Ml Vial IV 20,000 unit BIANCA PRN Administration HEMODIALYSIS Fentanyl 50 mcg 05/03/22 10:29 05/05/22 12:23 Fentanyl 100 Mcg/2 Ml Inj IV 25 mcg Q10MIN PRN Administration ANALGESIA Sodium Chloride 100 mls @ 999 mls/hr 04/22/22 09:12 Nacl 0.9% IV BIANCA PRN Hypotension Fentanyl Citrate 2,000 mcg in 100 mls @ 2.722 mls/hr 05/03/22 11:00 Fentanyl Drip Premix IV TITR CONNOR Protocol 1 MCG/KG/HR NORepinephrine/NS 8 MG-250 ML 8 mg in 250 mls @ 3.75 mls/hr 05/03/22 13:15 05/06/22 10:06 Norepinephrine/Ns 8 Mg-250 Ml (Double Conc) IV 0 mcg/min TITRATE CONNOR 0 mls/hr Titration Protocol 2 MCG/MIN Vasopressin 20 unit/ Sodium 101 mls @ 9.09 mls/hr 05/04/22 00:30 05/06/22 11:21 Chloride IV 0 units/min TITR CONNOR 0 mls/hr Infusion 0.03 UNITS/MIN Vancomycin HCl 750 mg/ Sodium 265 mls @ 166.667 mls/hr 05/09/22 22:00 Chloride IV TuThSa CONNOR Lansoprazole 30 mg 04/23/22 10:00 05/09/22 09:26 Lansoprazole 30 Mg Solutab FEEDTUBE 30 mg QDAY CONNOR Administration Lorazepam 0.5 mg 04/25/22 09:59 Lorazepam 0.5 Mg Tab FEEDTUBE QDAY PRN Anxiety Memantine 5 mg 04/25/22 10:00 05/09/22 09:26 Memantine 5 Mg Tab FEEDTUBE 5 mg BID CONNOR Administration Metoclopramide HCl 5 mg 04/19/22 09:55 Metoclopramide 10 Mg/2 Ml Inj IV Q6H PRN Nausea And Vomiting Midodrine 20 mg 04/26/22 14:00 05/09/22 08:25 Midodrine 10 Mg Tab FEEDTUBE 20 mg TID CONNOR Administration Naloxone HCl 0.1 mg 04/19/22 09:55 Naloxone 0.4 Mg/1 Ml Inj IV Q2MIN PRN Res Rate </= 8 or 02 SAT < 92% Polyethylene Glycol 17 gm 05/03/22 10:00 05/09/22 09:40 Polyethylene Glycol 3350 17 Gm Powder FEEDTUBE Not Given QDAY CONNOR Risperidone 0.5 mg 04/25/22 11:00 05/09/22 09:26 Risperidone 1 Mg Tab FEEDTUBE 0.5 mg BID CONNOR Administration Scopolamine 1 each 05/02/22 10:00 05/08/22 11:01 Scopolamine Transdermal Patch 72 Hr TD 1 each Q3D CONNOR Administration Senna 17.2 mg 04/23/22 10:00 05/09/22 09:40 Sennosides 8.6 Mg Tab FEEDTUBE Not Given BID CONNOR Sodium Chloride 10 ml 04/19/22 12:00 05/08/22 20:59 Sodium Chloride 0.9% 10 Ml Flush Syringe IV 10 ml BID CONNOR Administration Sodium Chloride 10 ml 04/19/22 11:19 Sodium Chloride 0.9% 10 Ml Flush Syringe IV PRN PRN LINE FLUSH Valproic Acid 750 mg 04/22/22 22:00 05/09/22 09:26 Valproic Acid 250 Mg/5 Ml Oral Liqd FEEDTUBE 750 mg BID CONNOR Administration Nutrition/Malnutrition Assess - Dietary Evaluation Nutrition/Malnutrition Findings: Nutrition Notes Start: 04/19/22 17:39 Freq: Status: Active Protocol: Document 05/05/22 14:44 SHILA (Rec: 05/05/22 14:55 SHILA [id number]) Nutrition Notes Initial or Follow up Reassessment Current Diagnosis CKD (stage V CKD),Sepsis, Respiratory Failure Other Pertinent Diagnosis Neurogenic dysphagia, metabolic encephalopathy, vascular dementia Current Diet No diet order in chart Labs/Tests Na 130 K 3.3 BUN 24 Cr 2.3 BG 163 Phos 1.5 Pertinent Medications Colace, Senokot, Miralax, Levophed gtt, Vasopressin gtt Height 5 ft 2 in Weight 54.43 kg [place] Body Weight (kg) 50.00 BMI 21.9 Weight Status Appropriate Subjective/Other Information PEG placed yesterday. Pt remains on vent and HD support . Observed Nepro infusing at 30ml/hr. No BM documented today. Bronchoscopy performed today. Percent of energy/protein needs met: 104% energy 90% pro Burn Absent Trauma Absent #1 Nutrition Diagnosis Inadequate oral intake, Swallowing difficulty Diagnosis Progress(for reassessment Continues documentation) Is patient on ventilator? Yes Is Patient Ambulatory and/or Out of Bed No REE-([facility]-confined to bed) [phone] Calculation Used for Recommendations [facility] Additional Notes Pro needs >1.2g/kg: >65g/day Fluid needs 1-1.5L/day Nutrition Intervention Nutrition Support: Continue Nepro at 30ml/hr with 130ml water flush q4h. Kcal 1,296 Protein (gm) 58 Carbohydrates (gm) 116 Fat (gm) 69 Fluid (mL) 523 Fiber (gm) 9 Goal #1 TF tolerance Goal #2 TF to meet at least 75% energy and pro needs Follow-Up By: 05/12/22 Additional Comments F/U: stable TF, vent status, wt, BM
--- NOTE | 2022-05-09 12:58 | Progress Note ---
Assessment and Plan Acute hypoxemic respiratory failure, Acute on Chronic Hypotension Acute on Chronic Metabolic Encephalopathy Possible Shock Syndrome SVT Elevated troponin, Bipolar disorder, Schizophrenia, Hyperkalemia ESRD on hemodialysis, Anemia of chronic disease, Type 2 NSTEMI GERD Subclinical Hypothyroidism Moderate protein caloric malnutrition - thoracentesis of right pleural effusion - resume SBT's in am - LTAC transfer post thoracentesis - continue chest PT by RT - complete Mucomyst course - continue Vancomycin (de-escalate per ID recommendations) - prn Levophed for target MAP > 65 mmHg while septic - continue care as below otherwise; - continue Daily SAT and SBT assessment as tolerated - sedation prn for target RASS 0 to -1 - VAP bundle addressed - continue lung protective strategies - continue bronchodilators with pulmonary hygiene per RT - wean per pulmonary driven protocols otherwise - enteral nutrition at goal rate as tolerated - continue Midodrine for BP support - femoral CVL in place as no other viable site for access - Albumin 25 gms of 25% solution prn with dialysis - continue HD/UF per nephrology prescription for toxin and volume clearance - continue accuchecks with glycemic control per SSI (While critically ill target blood glucose of 140-180 mg/dL; avoid hypoglycemia) - continue supplemental oxygen for target O2 sat's > 90% acutely - avoid nephrotoxins, renally dose all medications - continue to avoid benzodiazepine's, reduce the possibility of delirium - prn analgesia per CPOT score - Maintenance of sleep-wake cycle, avoid delirium - G.I. & VTE prophylaxis - PT/OT/ROM exercises - continue mobility protocols for pressure ulcer prophylaxis - Monitor hemodynamics closely - continue other care per attending / other consultants - discharge planning ongoing concurrently .... Re-evaluate in am & prn CONDITION: CRITICAL PROGNOSIS: GUARDED CODE STATUS: FULL CODE The high probability of a clinically significant, sudden or life-threatening deterioration of the [respiratory, cardiovascular, renal & neurologic] system(s) required my full and direct attention, intervention and personal management. The aggregate critical care time was [32] minutes without overlap. Time includes spent on; [x] Data Review and interpretation [x] Patient assessment and monitoring of vital signs [x] Documentation [x] Medication orders and management Subjective Date of service: 05/09/22 Principal diagnosis: AHRF; Shock; AMS; SVT; NSTEMI; ESRD; Protein calorie malnutrition Interval history: Patient is seen today for: Acute hypoxemic respiratory failure; Shock / Hypotension; AMS; SVT; NSTEMI; Schizophrenia; ESRD on Dialysis; Moderate protein caloric malnutrition Seen and examined at bedside; 24hour events reviewed; nursing and respiratory care staff consulted; no adverse overnight events reported to me; resting in bed; remains on MVS; tenuously tolerating SBT and back on full MVS; Dialysis ongoing; no emesis or overt aspiration; afebrile Objective Vital Signs - 12hr 05/09/22 05/09/22 05/09/22 01:00 01:15 01:30 Temperature Pulse Rate 96 H 101 H 95 H Pulse Rate [ Anterior Bilateral Throughout] Pulse Rate [ From Monitor] Respiratory 15 15 16 Rate Respiratory Rate [Anterior Bilateral Throughout] Blood Pressure 103/49 101/55 103/44 O2 Sat by Pulse 98 99 100 Oximetry O2 Sat by Pulse Oximetry [ Anterior Bilateral Throughout] 05/09/22 05/09/22 05/09/22 01:45 02:00 02:15 Temperature Pulse Rate 96 H 97 H 96 H Pulse Rate [ Anterior Bilateral Throughout] Pulse Rate [ From Monitor] Respiratory 16 17 17 Rate Respiratory Rate [Anterior Bilateral Throughout] Blood Pressure 102/47 102/47 110/45 O2 Sat by Pulse 99 100 99 Oximetry O2 Sat by Pulse Oximetry [ Anterior Bilateral Throughout] 05/09/22 05/09/22 05/09/22 02:30 02:45 03:01 Temperature Pulse Rate 99 H 100 H 102 H Pulse Rate [ Anterior Bilateral Throughout] Pulse Rate [ From Monitor] Respiratory 15 18 18 Rate Respiratory Rate [Anterior Bilateral Throughout] Blood Pressure 113/50 127/53 128/51 O2 Sat by Pulse 99 98 98 Oximetry O2 Sat by Pulse Oximetry [ Anterior Bilateral Throughout] 05/09/22 05/09/22 05/09/22 03:15 03:30 03:34 Temperature 99 F Pulse Rate 98 H 101 H 102 H Pulse Rate [ Anterior Bilateral Throughout] Pulse Rate [ From Monitor] Respiratory 16 17 Rate Respiratory Rate [Anterior Bilateral Throughout] Blood Pressure 120/45 108/50 O2 Sat by Pulse 99 98 97 Oximetry O2 Sat by Pulse Oximetry [ Anterior Bilateral Throughout] 05/09/22 05/09/22 05/09/22 03:45 03:55 04:00 Temperature Pulse Rate 96 H 101 H 99 H Pulse Rate [ Anterior Bilateral Throughout] Pulse Rate [ From Monitor] Respiratory 16 7 L 18 Rate Respiratory Rate [Anterior Bilateral Throughout] Blood Pressure 109/45 115/49 111/54 O2 Sat by Pulse 98 97 97 Oximetry O2 Sat by Pulse Oximetry [ Anterior Bilateral Throughout] 05/09/22 05/09/22 05/09/22 04:15 04:30 04:45 Temperature Pulse Rate 102 H 97 H 103 H Pulse Rate [ Anterior Bilateral Throughout] Pulse Rate [ From Monitor] Respiratory 22 16 19 Rate Respiratory Rate [Anterior Bilateral Throughout] Blood Pressure 107/62 115/49 114/67 O2 Sat by Pulse 97 97 97 Oximetry O2 Sat by Pulse Oximetry [ Anterior Bilateral Throughout] 05/09/22 05/09/22 05/09/22 05:00 05:15 05:30 Temperature Pulse Rate 100 H 104 H 100 H Pulse Rate [ Anterior Bilateral Throughout] Pulse Rate [ From Monitor] Respiratory 17 24 21 Rate Respiratory Rate [Anterior Bilateral Throughout] Blood Pressure 127/38 127/38 121/49 O2 Sat by Pulse 97 97 98 Oximetry O2 Sat by Pulse Oximetry [ Anterior Bilateral Throughout] 05/09/22 05/09/22 05/09/22 05:45 06:00 06:15 Temperature Pulse Rate 99 H 101 H 95 H Pulse Rate [ Anterior Bilateral Throughout] Pulse Rate [ From Monitor] Respiratory 18 20 15 Rate Respiratory Rate [Anterior Bilateral Throughout] Blood Pressure 130/57 138/66 111/45 O2 Sat by Pulse 97 97 98 Oximetry O2 Sat by Pulse Oximetry [ Anterior Bilateral Throughout] 05/09/22 05/09/22 05/09/22 06:30 06:45 07:00 Temperature Pulse Rate 99 H 105 H 104 H Pulse Rate [ Anterior Bilateral Throughout] Pulse Rate [ From Monitor] Respiratory 18 23 21 Rate Respiratory Rate [Anterior Bilateral Throughout] Blood Pressure 132/64 130/67 137/61 O2 Sat by Pulse 96 97 97 Oximetry O2 Sat by Pulse Oximetry [ Anterior Bilateral Throughout] 05/09/22 05/09/22 05/09/22 07:07 07:15 07:30 Temperature 97.5 F L Pulse Rate 103 H 103 H Pulse Rate [ Anterior Bilateral Throughout] Pulse Rate [ From Monitor] Respiratory 18 17 Rate Respiratory Rate [Anterior Bilateral Throughout] Blood Pressure 127/67 120/60 O2 Sat by Pulse 100 97 97 Oximetry O2 Sat by Pulse Oximetry [ Anterior Bilateral Throughout] 05/09/22 05/09/22 05/09/22 07:40 07:45 07:46 Temperature Pulse Rate 104 H 103 H Pulse Rate [ Anterior Bilateral Throughout] Pulse Rate [ 103 H From Monitor] Respiratory 15 16 Rate Respiratory Rate [Anterior Bilateral Throughout] Blood Pressure 128/62 O2 Sat by Pulse 97 97 Oximetry O2 Sat by Pulse Oximetry [ Anterior Bilateral Throughout] 05/09/22 05/09/22 05/09/22 08:00 08:15 08:30 Temperature Pulse Rate 95 H 97 H 97 H Pulse Rate [ 100 H Anterior Bilateral Throughout] Pulse Rate [ From Monitor] Respiratory 15 14 14 Rate Respiratory 15 Rate [Anterior Bilateral Throughout] Blood Pressure 118/53 118/53 109/59 O2 Sat by Pulse 99 99 99 Oximetry O2 Sat by Pulse Oximetry [ Anterior Bilateral Throughout] 05/09/22 05/09/22 05/09/22 08:45 09:00 09:15 Temperature Pulse Rate 104 H 103 H 95 H Pulse Rate [ Anterior Bilateral Throughout] Pulse Rate [ From Monitor] Respiratory 14 15 14 Rate Respiratory Rate [Anterior Bilateral Throughout] Blood Pressure 136/76 122/59 136/52 O2 Sat by Pulse 100 99 98 Oximetry O2 Sat by Pulse Oximetry [ Anterior Bilateral Throughout] 05/09/22 05/09/22 05/09/22 09:30 09:45 10:28 Temperature Pulse Rate 96 H 96 H 93 H Pulse Rate [ Anterior Bilateral Throughout] Pulse Rate [ From Monitor] Respiratory 14 18 14 Rate Respiratory Rate [Anterior Bilateral Throughout] Blood Pressure 136/52 122/48 122/48 O2 Sat by Pulse 99 99 99 Oximetry O2 Sat by Pulse Oximetry [ Anterior Bilateral Throughout] 05/09/22 05/09/22 05/09/22 10:30 10:45 11:00 Temperature Pulse Rate 88 97 H 93 H Pulse Rate [ Anterior Bilateral Throughout] Pulse Rate [ From Monitor] Respiratory 13 15 15 Rate Respiratory Rate [Anterior Bilateral Throughout] Blood Pressure 143/40 133/55 119/50 O2 Sat by Pulse 100 98 100 Oximetry O2 Sat by Pulse Oximetry [ Anterior Bilateral Throughout] 05/09/22 05/09/22 05/09/22 11:15 11:27 11:30 Temperature 98.0 F Pulse Rate 95 H 93 H 93 H Pulse Rate [ Anterior Bilateral Throughout] Pulse Rate [ From Monitor] Respiratory 15 16 Rate Respiratory Rate [Anterior Bilateral Throughout] Blood Pressure 121/46 117/48 105/48 O2 Sat by Pulse 99 100 Oximetry O2 Sat by Pulse 100 Oximetry [ Anterior Bilateral Throughout] 05/09/22 05/09/22 05/09/22 11:36 11:45 12:00 Temperature 98.0 F Pulse Rate 96 H 99 H Pulse Rate [ Anterior Bilateral Throughout] Pulse Rate [ 105 H From Monitor] Respiratory 17 17 Rate Respiratory Rate [Anterior Bilateral Throughout] Blood Pressure 121/52 119/44 O2 Sat by Pulse 99 100 Oximetry O2 Sat by Pulse Oximetry [ Anterior Bilateral Throughout] 05/09/22 05/09/22 05/09/22 12:15 12:30 12:45 Temperature Pulse Rate 100 H 97 H 98 H Pulse Rate [ Anterior Bilateral Throughout] Pulse Rate [ From Monitor] Respiratory 15 17 15 Rate Respiratory Rate [Anterior Bilateral Throughout] Blood Pressure 125/46 116/41 113/42 O2 Sat by Pulse 100 100 100 Oximetry O2 Sat by Pulse Oximetry [ Anterior Bilateral Throughout] Constitutional: no acute distress, alert, other (eldely female with mildly increased respiratory effort at rest on MVS) Eyes: non-icteric ENT: oropharynx moist, other (ETT 24 cm LAURA) Neck: supple, no lymphadenopathy, no JVD Effort: mildly labored Ascultation: Bilateral: diminished breath sounds (bases R>L), rhonchi, other (referred upper airway sounds) Percussion: Bilateral: not dull Cardiovascular: regular rate and rhythm, other (S1,S2) Gastrointestinal: normoactive bowel sounds, soft, non-tender, non-distended, other (+ PEG) Integumentary: normal Extremities: no cyanosis, pulses normal, no ischemia or petechiae, edema (1+ bilaterally) Neurologic: normal mental status, non-focal exam (grossly), pupils equal and round, other (appropriate non verbal responses to questions) Psychiatric: other (sedate) CBC and BMP: 05/09/22 04:25 05/09/22 04:25 ABG, PT/INR, D-dimer: ABG ABG pH 7.421 pH Units (7.350-7.450) 05/08/22 21:00 ABG pCO2 42.4 mm Hg 05/08/22 21:00 ABG pO2 68.8 mm Hg (80.0-90.0) L 05/08/22 21:00 ABG O2 Saturation 95.7 % (95.0-99.0) 05/08/22 21:00 PT/INR, D-dimer PT 17.6 Sec. (12.2-14.9) H 05/04/22 04:26 INR 1.29 (0.87-1.13) H 05/04/22 04:26 Abnormal lab findings: Abnormal Labs 04/19/22 04/19/22 04/19/22 04:53 04:53 04:53 WBC RBC 3.06 L Hgb 8.6 L Hct 28.0 L RDW 16.3 H Plt Count [place] % (Auto) 11.3 H Lymph # (Auto) Seg Neuts % (Manual) Lymphocytes % (Manual) Nucleated RBC % Seg Neutrophils # Man Lymphocytes # (Manual) PT INR APTT Heparin Anti-Xa Level ABG pH ABG pO2 ABG HCO3 ABG Base Excess ABG Hemoglobin Oxyhemoglobin Sodium Potassium 5.1 H Chloride Carbon Dioxide 21 L BUN 94 H Creatinine 6.3 H Glucose POC Glucose Phosphorus Magnesium Troponin T 0.415 H* Albumin 2.7 L Free T4 0.28 L Crossmatch 04/19/22 04/19/22 04/20/22 19:40 19:40 05:30 WBC 4.1 L RBC 2.97 L Hgb 8.5 L 8.2 L Hct 27.8 L 27.1 L RDW 17.0 H Plt Count [place] % (Auto) 15.2 H Lymph # (Auto) 1.1 L Seg Neuts % (Manual) Lymphocytes % (Manual) Nucleated RBC % Seg Neutrophils # Man Lymphocytes # (Manual) PT 17.9 H INR 1.28 H APTT 199.1 H* Heparin Anti-Xa Level ABG pH ABG pO2 ABG HCO3 ABG Base Excess ABG Hemoglobin Oxyhemoglobin Sodium Potassium Chloride Carbon Dioxide BUN Creatinine Glucose POC Glucose Phosphorus Magnesium Troponin T Albumin Free T4 Crossmatch 04/20/22 04/20/22 04/21/22 05:30 18:23 00:29 WBC RBC Hgb Hct RDW Plt Count [place] % (Auto) Lymph # (Auto) Seg Neuts % (Manual) Lymphocytes % (Manual) Nucleated RBC % Seg Neutrophils # Man Lymphocytes # (Manual) PT INR APTT Heparin Anti-Xa Level 0.17 L ABG pH ABG pO2 ABG HCO3 ABG Base Excess ABG Hemoglobin Oxyhemoglobin Sodium Potassium Chloride Carbon Dioxide 21 L BUN 95 H Creatinine 6.6 H Glucose 139 H POC Glucose Phosphorus Magnesium 2.60 H Troponin T Albumin 2.4 L Free T4 Crossmatch 04/21/22 04/21/22 04/22/22 04:00 04:00 03:45 WBC RBC 2.74 L Hgb 7.7 L Hct 24.7 L RDW 16.6 H Plt Count [place] % (Auto) Lymph # (Auto) Seg Neuts % (Manual) Lymphocytes % (Manual) Nucleated RBC % Seg Neutrophils # Man Lymphocytes # (Manual) PT INR APTT Heparin Anti-Xa Level < 0.10 L ABG pH ABG pO2 ABG HCO3 ABG Base Excess ABG Hemoglobin Oxyhemoglobin Sodium 133 L Potassium Chloride Carbon Dioxide 20 L BUN 89 H Creatinine 6.6 H Glucose 131 H POC Glucose Phosphorus 6.40 H Magnesium 2.50 H Troponin T Albumin Free T4 Crossmatch 04/22/22 04/22/22 04/22/22 03:45 12:13 14:30 WBC RBC Hgb Hct RDW Plt Count [place] % (Auto) Lymph # (Auto) Seg Neuts % (Manual) Lymphocytes % (Manual) Nucleated RBC % Seg Neutrophils # Man Lymphocytes # (Manual) PT INR APTT Heparin Anti-Xa Level 0.11 L 0.11 L ABG pH ABG pO2 ABG HCO3 ABG Base Excess ABG Hemoglobin Oxyhemoglobin Sodium 136 L Potassium Chloride Carbon Dioxide 18 L BUN 90 H Creatinine 6.3 H Glucose 121 H POC Glucose Phosphorus 6.50 H Magnesium Troponin T Albumin Free T4 Crossmatch 04/22/22 04/23/22 04/23/22 23:08 02:17 04:10 WBC RBC Hgb 7.3 L Hct 23.3 L RDW Plt Count [place] % (Auto) Lymph # (Auto) Seg Neuts % (Manual) Lymphocytes % (Manual) Nucleated RBC % Seg Neutrophils # Man Lymphocytes # (Manual) PT INR APTT Heparin Anti-Xa Level 0.14 L ABG pH ABG pO2 ABG HCO3 ABG Base Excess ABG Hemoglobin Oxyhemoglobin Sodium Potassium Chloride Carbon Dioxide BUN Creatinine Glucose POC Glucose 153 H Phosphorus Magnesium Troponin T Albumin Free T4 Crossmatch 04/23/22 04/23/22 04/23/22 04:10 06:09 23:22 WBC RBC Hgb Hct RDW Plt Count [place] % (Auto) Lymph # (Auto) Seg Neuts % (Manual) Lymphocytes % (Manual) Nucleated RBC % Seg Neutrophils # Man Lymphocytes # (Manual) PT INR APTT Heparin Anti-Xa Level ABG pH ABG pO2 ABG HCO3 ABG Base Excess ABG Hemoglobin Oxyhemoglobin Sodium Potassium Chloride Carbon Dioxide BUN 36 H Creatinine 3.4 H Glucose 131 H POC Glucose 141 H 114 H Phosphorus Magnesium Troponin T Albumin Free T4 Crossmatch 04/24/22 04/24/22 04/24/22 02:10 04:00 04:00 WBC RBC 2.48 L Hgb 7.1 L Hct 22.6 L RDW 16.9 H Plt Count [place] % (Auto) Lymph # (Auto) Seg Neuts % (Manual) Lymphocytes % (Manual) Nucleated RBC % Seg Neutrophils # Man Lymphocytes # (Manual) PT INR APTT Heparin Anti-Xa Level 0.12 L ABG pH ABG pO2 ABG HCO3 ABG Base Excess ABG Hemoglobin Oxyhemoglobin Sodium 134 L Potassium Chloride Carbon Dioxide BUN 42 H Creatinine 3.9 H Glucose 141 H POC Glucose Phosphorus Magnesium Troponin T Albumin Free T4 Crossmatch 04/24/22 04/24/22 04/24/22 05:03 10:20 11:24 WBC RBC Hgb Hct RDW Plt Count [place] % (Auto) Lymph # (Auto) Seg Neuts % (Manual) Lymphocytes % (Manual) Nucleated RBC % Seg Neutrophils # Man Lymphocytes # (Manual) PT INR APTT Heparin Anti-Xa Level < 0.10 L ABG pH ABG pO2 ABG HCO3 ABG Base Excess ABG Hemoglobin Oxyhemoglobin Sodium Potassium Chloride Carbon Dioxide BUN Creatinine Glucose POC Glucose 142 H 144 H Phosphorus Magnesium Troponin T Albumin Free T4 Crossmatch 04/25/22 04/25/22 04/25/22 00:15 04:11 04:11 WBC 4.4 L RBC 2.38 L Hgb 6.7 L Hct 21.7 L RDW 17.2 H Plt Count [place] % (Auto) Lymph # (Auto) Seg Neuts % (Manual) Lymphocytes % (Manual) Nucleated RBC % Seg Neutrophils # Man Lymphocytes # (Manual) PT INR APTT Heparin Anti-Xa Level ABG pH ABG pO2 ABG HCO3 ABG Base Excess ABG Hemoglobin Oxyhemoglobin Sodium 134 L Potassium Chloride 97.1 L Carbon Dioxide BUN 47 H Creatinine 4.3 H Glucose 106 H POC Glucose 136 H Phosphorus Magnesium Troponin T Albumin Free T4 Crossmatch 04/25/22 04/25/22 04/25/22 06:01 15:30 22:44 WBC RBC Hgb 8.8 L Hct 28.1 L D RDW Plt Count [place] % (Auto) Lymph # (Auto) Seg Neuts % (Manual) Lymphocytes % (Manual) Nucleated RBC % Seg Neutrophils # Man Lymphocytes # (Manual) PT INR APTT Heparin Anti-Xa Level ABG pH ABG pO2 ABG HCO3 ABG Base Excess ABG Hemoglobin Oxyhemoglobin Sodium Potassium Chloride Carbon Dioxide BUN Creatinine Glucose POC Glucose 137 H Phosphorus Magnesium Troponin T Albumin Free T4 Crossmatch See Detail 04/26/22 04/27/22 04/27/22 04:20 04:45 04:45 WBC RBC 2.81 L 3.13 L Hgb 8.0 L 9.0 L Hct 25.4 L 29.1 L RDW 16.2 H 17.4 H Plt Count [place] % (Auto) Lymph # (Auto) Seg Neuts % (Manual) Lymphocytes % (Manual) Nucleated RBC % Seg Neutrophils # Man Lymphocytes # (Manual) PT INR APTT Heparin Anti-Xa Level ABG pH ABG pO2 ABG HCO3 ABG Base Excess ABG Hemoglobin Oxyhemoglobin Sodium 131 L Potassium Chloride 93.5 L Carbon Dioxide BUN 44 H Creatinine 3.9 H Glucose 135 H POC Glucose Phosphorus Magnesium Troponin T Albumin Free T4 Crossmatch 04/27/22 04/28/22 04/28/22 23:38 05:26 07:54 WBC 11.1 H RBC 2.40 L Hgb 6.9 L Hct 22.1 L D RDW 17.2 H Plt Count [place] % (Auto) Lymph # (Auto) Seg Neuts % (Manual) Lymphocytes % (Manual) Nucleated RBC % Seg Neutrophils # Man Lymphocytes # (Manual) PT INR APTT Heparin Anti-Xa Level ABG pH ABG pO2 ABG HCO3 ABG Base Excess ABG Hemoglobin Oxyhemoglobin Sodium Potassium Chloride Carbon Dioxide BUN Creatinine Glucose POC Glucose 229 H 169 H Phosphorus Magnesium Troponin T Albumin Free T4 Crossmatch 04/28/22 04/28/22 04/29/22 12:31 17:54 00:49 WBC RBC Hgb Hct RDW Plt Count [place] % (Auto) Lymph # (Auto) Seg Neuts % (Manual) Lymphocytes % (Manual) Nucleated RBC % Seg Neutrophils # Man Lymphocytes # (Manual) PT INR APTT Heparin Anti-Xa Level ABG pH ABG pO2 ABG HCO3 ABG Base Excess ABG Hemoglobin Oxyhemoglobin Sodium Potassium Chloride Carbon Dioxide BUN Creatinine Glucose POC Glucose 132 H 138 H 189 H Phosphorus Magnesium Troponin T Albumin Free T4 Crossmatch 04/29/22 04/29/22 04/29/22 06:42 10:54 10:54 WBC 11.8 H RBC 2.93 L Hgb 8.6 L Hct 26.2 L RDW 16.8 H Plt Count [place] % (Auto) Lymph # (Auto) Seg Neuts % (Manual) Lymphocytes % (Manual) Nucleated RBC % Seg Neutrophils # Man Lymphocytes # (Manual) PT INR APTT Heparin Anti-Xa Level ABG pH ABG pO2 ABG HCO3 ABG Base Excess ABG Hemoglobin Oxyhemoglobin Sodium 129 L Potassium Chloride 91.5 L Carbon Dioxide BUN 46 H Creatinine 3.1 H Glucose 180 H POC Glucose 196 H Phosphorus Magnesium Troponin T Albumin Free T4 Crossmatch 04/29/22 04/29/22 04/30/22 12:03 23:32 05:57 WBC RBC Hgb Hct RDW Plt Count [place] % (Auto) Lymph # (Auto) Seg Neuts % (Manual) Lymphocytes % (Manual) Nucleated RBC % Seg Neutrophils # Man Lymphocytes # (Manual) PT INR APTT Heparin Anti-Xa Level ABG pH ABG pO2 ABG HCO3 ABG Base Excess ABG Hemoglobin Oxyhemoglobin Sodium Potassium Chloride Carbon Dioxide BUN Creatinine Glucose POC Glucose 169 H 170 H 151 H Phosphorus Magnesium Troponin T Albumin Free T4 Crossmatch 04/30/22 04/30/22 04/30/22 11:28 16:39 23:22 WBC RBC Hgb Hct RDW Plt Count [place] % (Auto) Lymph # (Auto) Seg Neuts % (Manual) Lymphocytes % (Manual) Nucleated RBC % Seg Neutrophils # Man Lymphocytes # (Manual) PT INR APTT Heparin Anti-Xa Level ABG pH ABG pO2 ABG HCO3 ABG Base Excess ABG Hemoglobin Oxyhemoglobin Sodium Potassium Chloride Carbon Dioxide BUN Creatinine Glucose POC Glucose 159 H 147 H 170 H Phosphorus Magnesium Troponin T Albumin Free T4 Crossmatch 05/01/22 05/01/22 05/01/22 04:00 05:34 15:23 WBC RBC 2.92 L Hgb 8.4 L Hct 26.7 L RDW 16.6 H Plt Count [place] % (Auto) Lymph # (Auto) Seg Neuts % (Manual) Lymphocytes % (Manual) Nucleated RBC % Seg Neutrophils # Man Lymphocytes # (Manual) PT INR APTT Heparin Anti-Xa Level ABG pH ABG pO2 74.2 L ABG HCO3 27.8 H ABG Base Excess ABG Hemoglobin 8.7 L Oxyhemoglobin 94.5 L Sodium Potassium Chloride Carbon Dioxide BUN Creatinine Glucose POC Glucose 140 H Phosphorus Magnesium Troponin T Albumin Free T4 Crossmatch 05/02/22 05/02/22 05/02/22 05:54 05:54 05:54 WBC RBC 2.85 L Hgb 8.3 L Hct 25.9 L RDW 16.5 H Plt Count [place] % (Auto) Lymph # (Auto) Seg Neuts % (Manual) Lymphocytes % (Manual) Nucleated RBC % Seg Neutrophils # Man Lymphocytes # (Manual) PT INR APTT Heparin Anti-Xa Level ABG pH ABG pO2 ABG HCO3 ABG Base Excess ABG Hemoglobin Oxyhemoglobin Sodium 130 L 128 L Potassium Chloride 90.9 L 90.0 L Carbon Dioxide BUN 49 H 49 H Creatinine 3.7 H 3.8 H Glucose 191 H 184 H POC Glucose Phosphorus Magnesium Troponin T Albumin Free T4 Crossmatch 05/02/22 05/03/22 05/03/22 14:15 04:24 04:24 WBC RBC 2.71 L Hgb 7.8 L Hct 24.8 L RDW 16.6 H Plt Count [place] % (Auto) Lymph # (Auto) Seg Neuts % (Manual) Lymphocytes % (Manual) Nucleated RBC % Seg Neutrophils # Man Lymphocytes # (Manual) PT INR APTT 39.4 H Heparin Anti-Xa Level ABG pH ABG pO2 ABG HCO3 29.1 H ABG Base Excess 4.3 H ABG Hemoglobin 8.4 L Oxyhemoglobin 94.8 L Sodium Potassium Chloride Carbon Dioxide BUN Creatinine Glucose POC Glucose Phosphorus Magnesium Troponin T Albumin Free T4 Crossmatch 05/03/22 05/03/22 05/03/22 04:24 15:17 17:30 WBC RBC Hgb Hct RDW Plt Count [place] % (Auto) Lymph # (Auto) Seg Neuts % (Manual) Lymphocytes % (Manual) Nucleated RBC % Seg Neutrophils # Man Lymphocytes # (Manual) PT INR APTT Heparin Anti-Xa Level ABG pH 7.577 H ABG pO2 140.4 H ABG HCO3 26.4 H ABG Base Excess 4.0 H ABG Hemoglobin 5.4 L Oxyhemoglobin Sodium 132 L Potassium Chloride 93.0 L Carbon Dioxide BUN 31 H Creatinine 2.8 H Glucose 119 H POC Glucose 60 L Phosphorus 2.10 L Magnesium Troponin T Albumin Free T4 Crossmatch 05/03/22 05/04/22 05/04/22 23:33 04:26 04:26 WBC 16.0 H RBC 2.39 L Hgb 6.9 L Hct 21.4 L RDW 15.8 H Plt Count [place] % (Auto) Lymph # (Auto) Seg Neuts % (Manual) Lymphocytes % (Manual) Nucleated RBC % Seg Neutrophils # Man Lymphocytes # (Manual) PT INR APTT Heparin Anti-Xa Level ABG pH ABG pO2 ABG HCO3 ABG Base Excess ABG Hemoglobin Oxyhemoglobin Sodium 133 L Potassium Chloride 94.8 L Carbon Dioxide BUN 34 H Creatinine 3.5 H Glucose 175 H POC Glucose 106 H Phosphorus Magnesium Troponin T Albumin Free T4 Crossmatch 05/04/22 05/04/22 05/04/22 04:26 05:30 05:40 WBC RBC Hgb Hct RDW Plt Count [place] % (Auto) Lymph # (Auto) Seg Neuts % (Manual) Lymphocytes % (Manual) Nucleated RBC % Seg Neutrophils # Man Lymphocytes # (Manual) PT 17.6 H INR 1.29 H APTT Heparin Anti-Xa Level ABG pH 7.547 H ABG pO2 141.7 H ABG HCO3 27.2 H ABG Base Excess 5.3 H ABG Hemoglobin 6.9 L Oxyhemoglobin Sodium Potassium Chloride Carbon Dioxide BUN Creatinine Glucose POC Glucose Phosphorus Magnesium Troponin T Albumin Free T4 Crossmatch See Detail 05/04/22 05/04/22 05/04/22 05:41 12:55 18:10 WBC RBC Hgb Hct RDW Plt Count [place] % (Auto) Lymph # (Auto) Seg Neuts % (Manual) Lymphocytes % (Manual) Nucleated RBC % Seg Neutrophils # Man Lymphocytes # (Manual) PT INR APTT Heparin Anti-Xa Level ABG pH ABG pO2 ABG HCO3 ABG Base Excess ABG Hemoglobin Oxyhemoglobin Sodium Potassium Chloride Carbon Dioxide BUN Creatinine Glucose POC Glucose 177 H 141 H 143 H Phosphorus Magnesium Troponin T Albumin Free T4 Crossmatch 08/19/22 08/19/22 08/19/22 00:05 04:20 04:20 WBC 12.8 H RBC 2.81 L Hgb 8.0 L Hct 24.8 L RDW 16.8 H Plt Count [place] % (Auto) Lymph # (Auto) Seg Neuts % (Manual) 86.0 H Lymphocytes % (Manual) 4.0 L Nucleated RBC % 1.0 H Seg Neutrophils # Man 11.0 H Lymphocytes # (Manual) 0.5 L PT INR APTT Heparin Anti-Xa Level ABG pH ABG pO2 ABG HCO3 ABG Base Excess ABG Hemoglobin Oxyhemoglobin Sodium 130 L Potassium 3.3 L Chloride 94.0 L Carbon Dioxide BUN 24 H Creatinine 2.3 H Glucose 163 H POC Glucose 163 H Phosphorus 1.50 L Magnesium Troponin T Albumin Free T4 Crossmatch 05/05/22 05/05/22 05/05/22 05:18 10:06 12:11 WBC RBC Hgb Hct RDW Plt Count [place] % (Auto) Lymph # (Auto) Seg Neuts % (Manual) Lymphocytes % (Manual) Nucleated RBC % Seg Neutrophils # Man Lymphocytes # (Manual) PT INR APTT Heparin Anti-Xa Level ABG pH ABG pO2 91.7 H ABG HCO3 27.4 H ABG Base Excess ABG Hemoglobin 11.4 L Oxyhemoglobin Sodium Potassium Chloride Carbon Dioxide BUN Creatinine Glucose POC Glucose 163 H 186 H Phosphorus Magnesium Troponin T Albumin Free T4 Crossmatch 05/05/22 05/06/22 05/06/22 16:29 04:45 04:59 WBC RBC Hgb Hct RDW Plt Count [place] % (Auto) Lymph # (Auto) Seg Neuts % (Manual) Lymphocytes % (Manual) Nucleated RBC % Seg Neutrophils # Man Lymphocytes # (Manual) PT INR APTT Heparin Anti-Xa Level ABG pH ABG pO2 112.7 H ABG HCO3 ABG Base Excess ABG Hemoglobin 7.8 L Oxyhemoglobin Sodium Potassium Chloride Carbon Dioxide BUN Creatinine Glucose POC Glucose 170 H 146 H Phosphorus Magnesium Troponin T Albumin Free T4 Crossmatch 05/06/22 05/06/22 05/06/22 05:02 05:02 11:34 WBC RBC 2.78 L Hgb 7.9 L Hct 25.1 L RDW 16.7 H Plt Count 119 L [place] % (Auto) Lymph # (Auto) Seg Neuts % (Manual) Lymphocytes % (Manual) Nucleated RBC % Seg Neutrophils # Man Lymphocytes # (Manual) PT INR APTT Heparin Anti-Xa Level ABG pH ABG pO2 ABG HCO3 ABG Base Excess ABG Hemoglobin Oxyhemoglobin Sodium 135 L Potassium 3.3 L Chloride 97.9 L Carbon Dioxide BUN 30 H Creatinine 2.7 H Glucose 148 H POC Glucose 130 H Phosphorus 1.50 L Magnesium Troponin T Albumin Free T4 Crossmatch 05/06/22 05/06/22 05/07/22 16:48 23:34 04:15 WBC RBC 2.95 L Hgb 8.4 L Hct 26.7 L RDW 16.7 H Plt Count 112 L [place] % (Auto) Lymph # (Auto) Seg Neuts % (Manual) Lymphocytes % (Manual) Nucleated RBC % Seg Neutrophils # Man Lymphocytes # (Manual) PT INR APTT Heparin Anti-Xa Level ABG pH ABG pO2 ABG HCO3 ABG Base Excess ABG Hemoglobin Oxyhemoglobin Sodium Potassium Chloride Carbon Dioxide BUN Creatinine Glucose POC Glucose 121 H 145 H Phosphorus Magnesium Troponin T Albumin Free T4 Crossmatch 05/07/22 05/07/22 05/07/22 04:15 05:26 11:08 WBC RBC Hgb Hct RDW Plt Count [place] % (Auto) Lymph # (Auto) Seg Neuts % (Manual) Lymphocytes % (Manual) Nucleated RBC % Seg Neutrophils # Man Lymphocytes # (Manual) PT INR APTT Heparin Anti-Xa Level ABG pH ABG pO2 ABG HCO3 ABG Base Excess ABG Hemoglobin Oxyhemoglobin Sodium 131 L Potassium 3.4 L Chloride 95.3 L Carbon Dioxide BUN 28 H Creatinine 2.5 H Glucose 140 H POC Glucose 136 H 136 H Phosphorus 1.20 L Magnesium Troponin T Albumin Free T4 Crossmatch 05/07/22 05/07/22 05/08/22 17:26 23:23 04:06 WBC RBC 2.87 L Hgb 8.2 L Hct 25.8 L RDW 16.2 H Plt Count 118 L [place] % (Auto) Lymph # (Auto) Seg Neuts % (Manual) Lymphocytes % (Manual) Nucleated RBC % Seg Neutrophils # Man Lymphocytes # (Manual) PT INR APTT Heparin Anti-Xa Level ABG pH ABG pO2 ABG HCO3 ABG Base Excess ABG Hemoglobin Oxyhemoglobin Sodium Potassium Chloride Carbon Dioxide BUN Creatinine Glucose POC Glucose 135 H 123 H Phosphorus Magnesium Troponin T Albumin Free T4 Crossmatch 05/08/22 05/08/22 05/08/22 04:06 04:40 11:31 WBC RBC Hgb Hct RDW Plt Count [place] % (Auto) Lymph # (Auto) Seg Neuts % (Manual) Lymphocytes % (Manual) Nucleated RBC % Seg Neutrophils # Man Lymphocytes # (Manual) PT INR APTT Heparin Anti-Xa Level ABG pH 7.482 H ABG pO2 103.9 H ABG HCO3 ABG Base Excess ABG Hemoglobin 8.1 L Oxyhemoglobin Sodium 132 L Potassium 3.3 L Chloride 93.2 L Carbon Dioxide BUN 36 H Creatinine 2.9 H Glucose 145 H POC Glucose 138 H Phosphorus 2.00 L D Magnesium Troponin T Albumin Free T4 Crossmatch 05/08/22 05/08/22 05/08/22 16:11 21:00 23:46 WBC RBC Hgb Hct RDW Plt Count [place] % (Auto) Lymph # (Auto) Seg Neuts % (Manual) Lymphocytes % (Manual) Nucleated RBC % Seg Neutrophils # Man Lymphocytes # (Manual) PT INR APTT Heparin Anti-Xa Level ABG pH ABG pO2 68.8 L ABG HCO3 27.0 H ABG Base Excess ABG Hemoglobin 8.4 L Oxyhemoglobin 93.4 L Sodium Potassium Chloride Carbon Dioxide BUN Creatinine Glucose POC Glucose 134 H 142 H Phosphorus Magnesium Troponin T Albumin Free T4 Crossmatch 05/09/22 05/09/22 04:25 04:25 WBC RBC 2.86 L Hgb 8.0 L Hct 25.7 L RDW 16.2 H Plt Count 101 L [place] % (Auto) Lymph # (Auto) Seg Neuts % (Manual) Lymphocytes % (Manual) Nucleated RBC % Seg Neutrophils # Man Lymphocytes # (Manual) PT INR APTT Heparin Anti-Xa Level ABG pH ABG pO2 ABG HCO3 ABG Base Excess ABG Hemoglobin Oxyhemoglobin Sodium 132 L Potassium 3.5 L Chloride 93.7 L Carbon Dioxide BUN 42 H Creatinine 3.0 H Glucose 145 H POC Glucose Phosphorus Magnesium Troponin T Albumin Free T4 Crossmatch CT scan - chest: image reviewed (large right pleural effusion > left) Allied health notes reviewed: nursing
--- NOTE | 2022-05-09 13:59 | Discharge Summary ---
Providers - Providers Date of Admission: 04/19/22 09:55 Date of discharge: 05/10/22 Attending physician: AMAURY KIM MD 04/19/22 09:51 Consult to Mental Health [CONS] Routine Reason For Exam: BIPOLAR WITH BEHAVIORAL DISTURBANCE Consult to Physician [CONS] Routine Comment: Consulting Provider: LORENA ADORNO Physician Instructions: Reason For Exam: ESRD Consult to Physician [CONS] Routine Comment: Consulting Provider: MICHELLE MADDOX Physician Instructions: Reason For Exam: SVT 04/19/22 09:55 Consult to Dietitian/Nutrition [CONS] Routine Physician Instructions: Reason For Exam: Reason for Consult: Malnutrition Consult to Physician [CONS] Routine Comment: Consulting Provider: QUINTON HALE Physician Instructions: Reason For Exam: SHOCK/SVT 04/19/22 09:59 Consult to Case Management [CONS] Routine Services Needed at Discharge: Hoop Expander Notified:: NO Additional Physician Instructions: PLACEMENT 04/21/22 10:37 Speech Therapy Evaluation and Treat [CONS] Urgent Reason For Exam: speech eval 04/22/22 10:41 Consult to Dietitian/Nutrition [CONS] Routine Physician Instructions: Reason For Exam: Reason for Consult: Write/Manage Tube Feeding 04/26/22 12:10 Consult to Physician [CONS] Routine Comment: called office/ ashwin Consulting Provider: JOSH CABAN Physician Instructions: Reason For Exam: peg tube placement 04/28/22 09:35 Consult to Physician [CONS] Routine Comment: Consulting Provider: LEONORA SOTOMAYOR Physician Instructions: Reason For Exam: RIJ thrombus 05/01/22 13:17 Consult to Dietitian/Nutrition [CONS] Routine Physician Instructions: Reason For Exam: Reason for Consult: Write/Manage Tube Feeding 05/04/22 13:14 Consult to Physician [CONS] Routine Comment: Consulting Provider: GUI ANTONIO Physician Instructions: Reason For Exam: Sepsis Primary care physician: INDER BAEZ Hospitalization Condition: Fair Hospital course: Assessment and Plan Assessment and plan: This is a 66-year-old female with HTN, GERD, seizure disorder, vascular dementia, ESRD on HD, chronic hypertension, bipolar, schizophrenia, anxiety admitted with acute hypoxic respiratory failure, acute on chronic hypotension, acute on chronic metabolic encephalopathy and SVT Neuro: h/o vascular dementia, schizophrenia, bipolar, anxiety disorder -Continue home Seroquel at reduced dose -As needed Ativan -Reorientation as needed -Maintain sleep-wake cycle -As needed analgesia -Continue home memantine, respiradol, valproic acid -CT head showed no acute intracranial abnormalities, no significant interval changes -Psych consulted, appreciate recommendations Cardiac: SVT s/p cardioversion, chronic hypotension, NSTEMI type II -Cardiology consulted, appreciate recommendations -Blood pressure monitoring per protocol -s/p vasopressor support with Levophed -Cortisol 24.4 -s/p Fludrocortisone for 4 doses -Midodrine 20mg TID -Echo 01/31/2022-EF 60 to 65%. Doppler flow pattern suggests impaired LV relaxation. Right ventricle systolic function is normal trace aortic regurgitation. Trace mitral regurgitation. -Lipitor, Plavix Respiratory: Acute hypoxic respiratory failure -CCM consulted, appreciate recommendations -Chest ultrasound showed bilateral pleural effusions, right greater than left -05/05 s/p therapeutic bronch at the bedside -Intubated 05/01 for bronch with 7.5 oett at 22 at the lips -ABG abg and CXR noted -AM vent settings: AC Rate 14, TV 450, Peep 6, FiO2 30% -See RT notes for titration -Pulmonary hygiene -SPO2 monitor per protocol -CTA chest with contrast shows large right and moderate-sized left pleural ef fusions with moderate body wall edema, groundglass pulmonary opacities in the upper lobes likely representing atypical pneumonia, no CT evidence of pulmonary embolism. -Chest US pending GI: Moderate protein calorie malnutrition, dysphagia s/p PEG -GI consulted -s/p peg 05/04 -24 hours + 1454 mL -PPI -TF -BR: Senokot : ESRD on HD, hypophosphatemia, hypokalemia -Nephrology consulted, appreciate recommendations -HD per nephrology (TThSat) -Monitor intake and output -Renally dose medications -Avoid nephrotoxic medications -Epogen 3 times daily -Trend BMP ID: Septic Shock, MRSA PNA -ID consulted, appreciate recommendations -f/u blood culture -04/19 blood cultures x2 NGTD, bronch wash with MRSA -ABX therapy with vanco -Monitor WBC and temperature curve Endo: NAD -Avoid hypoglycemia Heme: Anemia of chronic disease, RIJ thrombus (chronic), leukocytosis -Vascular surgery consulted, appreciate recommendations -no need for heparin gtt per vascular surgery -Trend CBC -Transfuse hemoglobin less than 7 -s/p 3 unit PRBC -Epogen 3 times daily -SCDs to BLE while in bed The high probability of a clinically significant, sudden or life threatening deterioration of the [multiple] system(s) required my full and direct attention, intervention and personal management. The aggregate critical care time was [60] minutes. This time is in addition to time spent performing reported procedures but includes the following: [x] Data Review and interpretation [x] Patient assessment and monitoring of vital signs [x] Documentation [x] Medication orders and management Disposition Plan: icu Total Time Spent with Patient (Minutes): 60 History Interval history: This is a 66-year-old female with HTN, GERD, seizure disorder, vascular dementia, ESRD on HD (TTS), OA, chronic hypotension, bipolar, schizophrenia, anxiety examined mobility with a resident of [facility] senior living present to the emergency department on 04/19 with altered mental status and for being combative causing her to miss several days of hemodialysis. On presentation patient was found to be more hypertensive than usual and on room air with oxygen saturations in the 90s and she subsequently went into SVT into the 150s requiring cardioversion under conscious sedation. Patient was admitted to the hospital service with acute hypoxic respiratory failure, acute on chronic hypotension, acute on chronic metabolic encephalopathy, SVT, hyperkalemia, NSTEMI type II to the ICU with consults to [facility], nephrology cardiology and psych. Hospital Course to Date: 04/20: Patient went into Afib with RVR overnight, now on amiodarone gtt per cardio. Patient remains in AFib with RVR this am, HR in the 120-140s. BP marginal on Levophed gtt, currently not a candidate for BB. Midodrine increased to 15mg TID. 2D Echo pending. On heparin gtt per protocol. No HD today per nephro due to hypotension and tachycardia. 04/21: Converted to SR this am, remains on Amiodarone and heparin. Awaiting cardio final recommendations. Still on Levophed gtt for low BP, given patient history of chronic hypotension, Wean pressor for MAP goal of 60s. Patient is pocketing foods, currently NPO, awaiting speech eval and treat. 04/22: Patient passed speech swallow eval yesterday, however, patient is refusing PO intakes including meds. Will insert DHT for nutrition and meds administration. Patient remains in SR this am, amiodaron gtt transitioned to PO per cardio. Patient remains on heparin and Levophed gtt. Patient has not received PO midrodrine for 24hrs, resume meds once DHT is inserted. Keep femoral CVC for another 24hrs, anticipating will be able to wean off pressor once patient receive midodrine. Will reassess in the morning. No HD overnight, unable to cannulate AVF, plan to attempt again today per Nephro. Possible IR/Vascular surgery consult if unsuccessful again today. 04/23: Mentation a lot better this am. DHT was inserted, meds resumed and TF initiated. Levophed gtt increased overnight due to worsen hypotension, suspected it is due to sedative agents. Seroquel decreased to 200mg BID and scheduled ativan switched to PRN. Continue midodrine TID and wean off levophed gtt for MAP goal of 60. Patient tolerated HD yesterday, continue iHD per Nephrology. CCM recommendations noted, Chest US ordered for pleural effusion. 04/24: RN instructed to wean Levophed off, goal MAP of 60. Heparin drip stopped due to decreasing hemoglobin. 04/25: ST had cleared the patient for pured diet which will be started today, hemodialysis planned for today, patient was to be anemic and will receive 1 unit PRBC with HD. We will increase midodrine to 20 mg 3 times daily if patient becomes hypotensive during dialysis. Per CCM. Decrease in seroqoul but will increase if needed 04/26: Patient agreeable to PEG, GI consulted for placement. Femoral line removed 04/27: No acute events reported overnight, patient has been cardiac cleared for PEG tube placement. Possible PEG in the a.m. This afternoon attempted to place IJ CVL which was unsuccessful and Dr. Mcguire ultimately placed femoral CVL for the initiation of Levophed. HD scheduled for today. 04/28: Patient initially started on Levophed yesterday and she received a femoral CVL. 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 Vascular surgery was consulted. Patient also noted to be anemic and received 1 unit PRBC today. 04/29: Possible hemodialysis today, patient was able to be weaned off of Levophed today. Hemoglobin responded well to 1 unit PRBC. Awaiting trach/PEG placement. Patient will not need to be started on heparin drip per vascular surgery. No acute events reported overnight. 04/30: HD yesterday without removal of fluids, patient needs NT suctioning. Updated son today. 05/01: Patient with increase mucous production and is unable to fully clear her airway, Rhonchi auscultated throughout her lungs this am. SPO2 at 90 to 94% on 3L NC. D/W CCM, patient is high risk for aspiration will placed patient on heated HF at 40L for now instead of Bipap. Nasal bleeding also noted, mostly due to NT suctioning. Refrain from NT suctioning for now due to bleeding, only oral suctioning. PO seroquel held this amP atient is AAO, appropriate, and following commands. Levophed gtt weaned off, patient remains hemodynamically stable. Will discuss Nephro for possible fluid removal tonight or early tomorrow. Very low threshold for intubation. Patient's condition and plan of care, including possible intubation, thoroughly discussed with patient's son-Raymundo Randolph at . Patient's son verbalized understanding of the info provided and agreed with intubation if necessary. 05/02: Remains on HHFL at 40% and 40L, mentation is unchanged. HD at the bedside, plan for possible UF with fluid removal today. Continue O2 supplementation and wean as tolerated, for SPO2 above 92%. Repeat CXR in the am. Patient vital signs remains stable, still off pressors. Plan for possible PEG-tube placement by GI tomorrow, NPO after MN. Possible fistulogram for RIJ thrombus on or sunday per Vascular Surgery. 05/03: Complete white-out of right side from this am CXR, probable mucus plug. S/p intubation and bronch at the bedside by [facility]. Patient remains sedated and required short duration of Levophed gtt during the procedure. Pressor was wean off, VSS. Plan for CPT and mucomyst Q12hrs. Repeat CXR in the am. PEG-Tube placement postpone for possibly tomorrow if patient remains stable. Possible fistulogram for RIJ thrombus on or Sunday per Vascular Surgery. 05/04: Remains on the vent, easily arousable. High fevers overnight with spike in leukocytosis, now on 2 pressors. [facility] d/w ID, recommendations to repeat blood cultures and empiric IV abx- Cefepine and Vanco. low H&H this am, no s/s of any active bleeding, 1units of PRBCs during iHD today. S/p PEG-tube placement at this bedside this am by GI, no complications noted. Resume TF once clear by GI. 05/05: Remains on low vent setting. This am CXR with increase opacities on the ri ght side again today, s/p therapeutic bronch at the bedside today by [facility]. Repeat CXR in the am. Remains with low grade fevers and on 2 pressors. Bronchial wash with Staph A. and blood cultures pending. Continue current IV Abx per ID. 05/06: Stable on the vent this am. Only on low dose pressors, MAP above 65. CXR with some improvement, peep dropped to 8 per [facility]. Continue CPT and Mucomyst TID. If patient remains stable overnight, possible PSV trial in the am. Fevers and leukocytosis improved. Continue current IV Abx per ID. Continue iHD per Nephro 05/07: Remains stable on the vent, afebrile and off pressors this am VSS. This am CXR reviewed, increased opacities on the right side. Patient remains on low vent settings. Further management per [facility], continue CPT and Mucomyst TID. Bronch wash with MRSA, blood cultures pending. Continue current IV Abx per ID. 05/08: We will replete potassium, [facility] would like a CTA chest but evaluate atelectasis/consolidation/effusions. LTAC evaluation 05/09: HD today, CTA chest completed. CPAP yesterday but rested on AC overnight. Patient had thoracentesis today with removal of 1L pleural fluid. Discharge was delayed but she will be discharged to LTAC today. Follow up with nephrology, psychology, pulmonary and infectious disease for ongoing care. Disposition: 30 STILL A PATIENT Exam - Constitutional Vitals: Temp Pulse Resp BP Pulse Ox 98.0 F 104 H 15 118/46 100 05/09/22 11:36 05/09/22 13:30 05/09/22 13:15 05/09/22 13:30 05/09/22 13:15 Plan Follow up with: INDER BAEZ MD [Primary Care Provider] - 7 Days
[2022-05-09] MEDS: EPOETIN ALFA-EPBX 20,000 UNIT/1 ML VIAL IV PRN (14:58)
[2022-05-09] MEDS ORDERED: ALBUMIN HUMAN 25% (25 GM/100 ML) INJ IV ONE (15:16)
--- NOTE | 2022-05-09 15:34 | Procedure Note ---
Date of procedure: 05/09/22 Pre-op diagnosis: right pleural effusion Post-op diagnosis: same Procedure: US thoracentesis, right Findings: moderate right pleural efffusion Anesthesia: local Surgeon: MCKAY BROWNING Estimated blood loss: none Pathology: list (120cc) Specimen disposition: to lab Condition: stable Disposition: floor
--- NOTE | 2022-05-09 16:12 | Ultrasound Report ---
ULTRASOUND-GUIDED THORACENTESIS HISTORY: large right pleural effusion. COMPARISON: CTA chest performed earlier today PROCEDURE: The risks (including but not limited to bleeding, infection, and pneumothorax) and benefi ts were explained to the patient and informed consent was obtained. A time out procedure was perform ed. Ultrasound was used to evaluate the right pleural effusion and locate the optimal site for needle ent ry. Once the skin was marked, the procedure site was prepped and draped in the usual sterile fashion and lidocaine was used for local anesthesia. A 5-Slovak thoracentesis catheter was placed. The pat ient was monitored closely throughout the procedure, and a total of 1000 mL of clear yellow fluid was aspirated. Samples were sent to the lab for further evaluation per the primary clinicians orders. The patient tolerated the procedure well with no complications. A post-procedure chest x-ray was imm ediately ordered. IMPRESSION: Successful ultrasound-guided right thoracentesis. Signer Name: Magen Silverio Jr, MD Signed: 05/09/2022 4:08 PM Workstation Name: [id number]
--- NOTE | 2022-05-09 16:35 | XRay Report ---
XR chest 1V ap INDICATION / CLINICAL INFORMATION: recent thora, right pl eff. COMPARISON: CTA from same day. FINDINGS: SUPPORT DEVICES: Endotracheal tube terminates in the midtrachea. HEART /PULMONARY VASCULATURE: Unchanged. LUNGS / PLEURA: Significant improvement in right pleural effusion status post thoracentesis. Small le ft pleural effusion remains with basilar predominant airspace opacities. No discrete pneumothorax. IMPRESSION: Significant improvement in right pleural effusion status post thoracentesis. No discrete pneumothorax . Signer Name: Harris Stiles MD Signed: 05/09/2022 4:31 PM Workstation Name: [email or web address]
--- NOTE | 2022-05-09 17:18 | Progress Note ---
Assessment and Plan Cultures: 04/21/2022 blood culture: No growth 04/21/2022 tracheal aspirate culture: Usual respiratory wyatt 04/22/2022 urine culture: No growth 04/30/2022 blood culture: No growth 04/30/2022 urine culture: No growth 05/02/2022 sputum culture: In process 05/02/2022 urine culture: No growth 05/03/2022 COVID-19 PCR: Positive A/P: 63-year-old male with obesity, hypertension, diabetes, atrial fibrillation was admitted to the hospital on 04/21/2022 with out of hospital cardiac arrest/V. fib arrest with ROSC. He was severely acidotic, placed on pressors, intubated, on mechanical ventilation: #Severe sepsis: Ruled out bacteremia, catheter associated UTI so far. COVID-19 positive. #COVID-19: #S/p [id number] cardiac arrest/V. fib arrest, cardiogenic shock, non- ischemic cardiomyopathy #CINDY: Renally adjust antibiotics. Creatinine gradually better. #Aspiration pneumonia #Acute hypoxic respiratory failure: On mechanical ventilation. #Acute urinary retention: Has Cleary catheter in place. #Elevated LFTs: RUQ ultrasound showed fatty liver. Recs: -continue steroids for COVID-19 -Completed Remdesivir -given fevers and possibility of bacterial infection, not a candidate for Actemra -Continue empiric IV cefepime plan 8 days. Guero Templeton MD [facility] O: [phone] F: [phone] Subjective Date of service: 05/09/22 Principal diagnosis: AHRF; Shock; AMS; SVT; NSTEMI; ESRD; Protein calorie malnutrition Interval history: Afebrile, normal white count now. Imaging personally reviewed: Chest CTA: No pulmonary embolism. Bilateral pleural effusions. Objective - Exam Narrative Exam: Physical Exam: Constitutional: Alert, cooperative. No acute distress Head, Ears, Nose: Normocephalic, atraumatic. External ears, nose normal Eyes: Conjunctivae/corneas clear. No icterus. No ptosis. Neck: Supple, no meningeal signs Oral: dentition fair, no thrush Cardiovascular: S1, S2 normal. Respiratory: Good air entry, clear to auscultation bilaterally GI: Soft, non-tender; bowel sounds normal. No peritoneal signs. Musculoskeletal: No pedal edema, no cyanosis. Skin: No rash or abscess Hem/Lymphatic: No palpable cervical or supraclavicular nodes. No lymphangitis Psych: Mood ok. Affect normal Neurological: Awake, alert, oriented. No gross abnormality - Constitutional Vitals: Vital Signs Temp Pulse Resp BP Pulse Ox 97.9 F 101 H 19 118/47 100 05/09/22 16:52 05/09/22 17:00 05/09/22 17:00 05/09/22 17:00 05/09/22 17:00 Temperature -Last 24 Hours Temperature 97.9 F Temperature 98.0 F Temperature 98.0 F Temperature 98.0 F Temperature 97.5 F Temperature 99 F Temperature 98.8 F Temperature 98.6 F - Labs CBC & Chem 7: 05/09/22 04:25 05/09/22 04:25 Labs: Abnormal lab results 05/08/22 05/08/22 05/08/22 Range/Units 11:31 16:11 21:00 RBC (3.65-5.03) M/mm3 Hgb (10.1-14.3) gm/dl Hct (30.3-42.9) % RDW (13.2-15.2) % Plt Count (140-440) K/mm3 ABG pO2 68.8 L (80.0-90.0) mm Hg ABG HCO3 27.0 H (20.0-26.0) mmol/L ABG Hemoglobin 8.4 L (12.0-16.0) gm/dl Oxyhemoglobin 93.4 L (95.0-99.0) % Sodium (137-145) mmol/L Potassium (3.6-5.0) mmol/L Chloride (98-107) mmol/L BUN (7-17) mg/dL Creatinine (0.6-1.2) mg/dL Glucose (65-100) mg/dL POC Glucose 138 H 134 H (70-105) mg/dL 05/08/22 05/09/22 05/09/22 Range/Units 23:46 04:25 04:25 RBC 2.86 L (3.65-5.03) M/mm3 Hgb 8.0 L (10.1-14.3) gm/dl Hct 25.7 L (30.3-42.9) % RDW 16.2 H (13.2-15.2) % Plt Count 101 L (140-440) K/mm3 ABG pO2 (80.0-90.0) mm Hg ABG HCO3 (20.0-26.0) mmol/L ABG Hemoglobin (12.0-16.0) gm/dl Oxyhemoglobin (95.0-99.0) % Sodium 132 L (137-145) mmol/L Potassium 3.5 L (3.6-5.0) mmol/L Chloride 93.7 L (98-107) mmol/L BUN 42 H (7-17) mg/dL Creatinine 3.0 H (0.6-1.2) mg/dL Glucose 145 H (65-100) mg/dL POC Glucose 142 H (70-105) mg/dL
[2022-05-09 20:11] LABS: Total Cells Counted 100 /mm3
[2022-05-09] MEDS: VANCOMYCIN 750 MG in SODIUM CHLORIDE 0.9% 250ML 250 ML IV SCH (21:27)
--- NOTE | 2022-05-10 03:13 | XRay Report ---
CHEST 1 VIEW INDICATION / CLINICAL INFORMATION: follow up respiratory failure. COMPARISON: Chest x-ray 05/09/2022 FINDINGS: SUPPORT DEVICES: Endotracheal tube satisfactory position 5 cm above tena. Underpenetrated study. HEART / MEDIASTINUM: Stable interval appearance of the cardiomediastinal silhouette. LUNGS / PLEURA: Bilateral lung opacities demonstrate no significant interval change. Nodular density left mid chest unchanged. BONES: No significant osseous abnormality. ADDITIONAL FINDINGS: No significant additional findings. IMPRESSION: 1. No adverse interval change in the chest given the difference in technique. Nodular density possibl y calcified left midlung is stable. Satisfactory positioning of endotracheal tube. Signer Name: Darshan Mancilla II, MD Signed: 05/10/2022 3:09 AM Workstation Name: [id number]
[2022-05-10] MEDS: ACETYLCYSTEINE 20% 200 MG/1 ML *FOR INHALATION USE INHALATION SCH (09:00)
[2022-05-10] MEDS: IPRATROPIUM/ALBUTEROL SULFATE 3 ML AMPUL.NEB IH SCH ×3 (09:00→19:34)
[2022-05-10] MEDS: LANSOPRAZOLE 30 MG SOLUTAB FEEDTUBE SCH (09:40)
[2022-05-10] MEDS: MIDODRINE 10 MG TAB FEEDTUBE SCH ×3 (09:41→20:40)
[2022-05-10] MEDS: risperiDONE 1 MG TAB FEEDTUBE SCH ×2 (09:41→21:48)
[2022-05-10] MEDS: MEMANTINE 5 MG TAB FEEDTUBE SCH ×2 (09:41→21:48)
[2022-05-10] MEDS: VALPROIC ACID 250 MG/5 ML ORAL LIQD FEEDTUBE SCH ×2 (09:43→21:48)
[2022-05-10] MEDS: POLYETHYLENE GLYCOL 3350 17 GM POWDER FEEDTUBE SCH (09:44)
[2022-05-10] MEDS: DOCUSATE SODIUM 100 MG/10 ML ORAL LIQD FEEDTUBE SCH ×2 (09:44→21:48)
--- NOTE | 2022-05-10 09:55 | Progress Note ---
Assessment and Plan Impression: * End stage renal disease * AMS * SVT s/p cardioversion * IJ thrombus * NSTEMI * SIRS * Hypotension * Anemia secondary to ESRD * Secondary hyperparathyroidism Plan: * Continue HD TTS schedule * UF as tolerated * Midodrine TID * Maintain MAP>65, vasopressors prn * Avoid potential nephrotoxins * Epogen TIW prn * Nutrition via PEG * Dose medications for renal function Subjective Date of service: 05/10/22 Principal diagnosis: Neurogenic dysphagia Interval history: No acute events overnight. Objective - Vital Signs Vital signs: Vital Signs - 12hr 05/09/22 05/09/22 05/09/22 22:00 22:15 22:30 Temperature Pulse Rate 100 H 100 H 101 H Pulse Rate [ Anterior Bilateral Throughout] Pulse Rate [ From Monitor] Respiratory 15 15 15 Rate Respiratory Rate [Anterior Bilateral Throughout] Blood Pressure 107/33 98/42 121/37 O2 Sat by Pulse 100 100 100 Oximetry 05/09/22 05/09/22 05/09/22 22:45 23:00 23:15 Temperature Pulse Rate 104 H 107 H 103 H Pulse Rate [ Anterior Bilateral Throughout] Pulse Rate [ From Monitor] Respiratory 14 15 14 Rate Respiratory Rate [Anterior Bilateral Throughout] Blood Pressure 113/42 126/32 114/33 O2 Sat by Pulse 99 100 100 Oximetry 05/09/22 05/09/22 05/09/22 23:26 23:30 23:36 Temperature Pulse Rate 102 H 103 H 97 H Pulse Rate [ Anterior Bilateral Throughout] Pulse Rate [ From Monitor] Respiratory 14 13 14 Rate Respiratory Rate [Anterior Bilateral Throughout] Blood Pressure 114/33 99/40 114/33 O2 Sat by Pulse 100 100 100 Oximetry 05/09/22 05/10/22 05/10/22 23:45 00:00 00:15 Temperature 98.9 F Pulse Rate 98 H 102 H 107 H Pulse Rate [ Anterior Bilateral Throughout] Pulse Rate [ 102 H From Monitor] Respiratory 14 16 14 Rate Respiratory Rate [Anterior Bilateral Throughout] Blood Pressure 108/36 100/32 115/50 O2 Sat by Pulse 100 100 99 Oximetry 05/10/22 05/10/22 05/10/22 00:30 00:45 01:00 Temperature Pulse Rate 107 H 101 H 100 H Pulse Rate [ Anterior Bilateral Throughout] Pulse Rate [ From Monitor] Respiratory 14 14 14 Rate Respiratory Rate [Anterior Bilateral Throughout] Blood Pressure 111/51 103/37 104/35 O2 Sat by Pulse 98 99 99 Oximetry 05/10/22 05/10/22 05/10/22 01:15 01:30 01:45 Temperature Pulse Rate 99 H 107 H 109 H Pulse Rate [ Anterior Bilateral Throughout] Pulse Rate [ From Monitor] Respiratory 14 20 17 Rate Respiratory Rate [Anterior Bilateral Throughout] Blood Pressure 99/29 121/48 129/56 O2 Sat by Pulse 99 99 98 Oximetry 05/10/22 05/10/22 05/10/22 02:00 02:15 02:30 Temperature Pulse Rate 104 H 99 H 99 H Pulse Rate [ Anterior Bilateral Throughout] Pulse Rate [ From Monitor] Respiratory 16 14 14 Rate Respiratory Rate [Anterior Bilateral Throughout] Blood Pressure 115/51 100/38 95/38 O2 Sat by Pulse 98 99 99 Oximetry 05/10/22 05/10/22 05/10/22 02:45 03:00 03:16 Temperature Pulse Rate 105 H 109 H 110 H Pulse Rate [ Anterior Bilateral Throughout] Pulse Rate [ From Monitor] Respiratory 14 18 14 Rate Respiratory Rate [Anterior Bilateral Throughout] Blood Pressure 118/55 117/58 120/44 O2 Sat by Pulse 100 98 97 Oximetry 05/10/22 05/10/22 05/10/22 03:30 03:45 04:00 Temperature 99.1 F Pulse Rate 109 H 107 H 105 H Pulse Rate [ Anterior Bilateral Throughout] Pulse Rate [ 105 H From Monitor] Respiratory 15 15 3 L Rate Respiratory Rate [Anterior Bilateral Throughout] Blood Pressure 126/63 113/53 114/59 O2 Sat by Pulse 97 99 99 Oximetry 05/10/22 05/10/22 05/10/22 04:16 04:30 04:45 Temperature Pulse Rate 107 H 106 H 109 H Pulse Rate [ Anterior Bilateral Throughout] Pulse Rate [ From Monitor] Respiratory 14 18 17 Rate Respiratory Rate [Anterior Bilateral Throughout] Blood Pressure 105/45 117/50 117/55 O2 Sat by Pulse 99 99 98 Oximetry 05/10/22 05/10/22 05/10/22 05:00 05:15 05:30 Temperature Pulse Rate 108 H 104 H 103 H Pulse Rate [ Anterior Bilateral Throughout] Pulse Rate [ From Monitor] Respiratory 19 14 16 Rate Respiratory Rate [Anterior Bilateral Throughout] Blood Pressure 114/59 118/53 100/46 O2 Sat by Pulse 98 99 99 Oximetry 05/10/22 05/10/22 05/10/22 05:45 06:00 06:16 Temperature Pulse Rate 99 H 99 H 106 H Pulse Rate [ Anterior Bilateral Throughout] Pulse Rate [ From Monitor] Respiratory 15 15 15 Rate Respiratory Rate [Anterior Bilateral Throughout] Blood Pressure 97/47 96/50 105/58 O2 Sat by Pulse 99 100 98 Oximetry 05/10/22 05/10/22 05/10/22 06:30 06:45 07:00 Temperature Pulse Rate 106 H 103 H 99 H Pulse Rate [ Anterior Bilateral Throughout] Pulse Rate [ From Monitor] Respiratory 17 16 14 Rate Respiratory Rate [Anterior Bilateral Throughout] Blood Pressure 110/64 104/54 96/48 O2 Sat by Pulse 99 97 99 Oximetry 05/10/22 05/10/22 05/10/22 07:15 07:30 07:45 Temperature Pulse Rate 98 H 96 H 101 H Pulse Rate [ Anterior Bilateral Throughout] Pulse Rate [ From Monitor] Respiratory 14 15 16 Rate Respiratory Rate [Anterior Bilateral Throughout] Blood Pressure 95/48 90/48 112/53 O2 Sat by Pulse 100 100 100 Oximetry 05/10/22 05/10/22 05/10/22 08:00 08:10 08:15 Temperature 98.7 F Pulse Rate 94 H 107 H Pulse Rate [ Anterior Bilateral Throughout] Pulse Rate [ From Monitor] Respiratory 14 22 Rate Respiratory Rate [Anterior Bilateral Throughout] Blood Pressure 104/47 120/47 O2 Sat by Pulse 100 100 100 Oximetry 05/10/22 05/10/22 05/10/22 08:17 08:30 09:00 Temperature Pulse Rate 101 H 106 H Pulse Rate [ 102 H Anterior Bilateral Throughout] Pulse Rate [ From Monitor] Respiratory 18 Rate Respiratory 20 Rate [Anterior Bilateral Throughout] Blood Pressure 120/47 119/85 O2 Sat by Pulse 100 100 Oximetry - General Appearance General appearance: well-developed, well-nourished EENT: ATNC Cardiology: regular, S1S2 Gastrointestinal: normal, no tenderness, no distended Integumentary: warm and dry Psychiatric: cooperative - Lab 05/14/22 05:36 05/13/22 04:00 Most recent lab results ABG pH 7.421 pH Units (7.350-7.450) 05/08/22 21:00 ABG pCO2 42.4 mm Hg 05/08/22 21:00 ABG pO2 68.8 mm Hg (80.0-90.0) L 05/08/22 21:00 ABG HCO3 27.0 mmol/L (20.0-26.0) H 05/08/22 21:00 ABG O2 Saturation 95.7 % (95.0-99.0) 05/08/22 21:00 Calcium 8.7 mg/dL (8.4-10.2) 05/09/22 04:25 Phosphorus 3.00 mg/dL (2.5-4.5) D 05/09/22 04:25 Magnesium 1.80 mg/dL (1.7-2.3) 05/09/22 04:25 Medications & Allergies - Medications Allergies/Adverse Reactions: Allergies buspirone [From BuSpar] Allergy (Verified 04/18/22 12:22) Unknown Penicillins Allergy (Verified 04/18/22 12:22) Rash corn Adverse Reaction (Verified 04/18/22 12:22) Unknown Home Medications: Home Medications Medication Instructions Recorded Confirmed Last Taken Type Sevelamer Carbonate [Renvela] 0.8 gram PO TIDWM 09/02/20 02/02/22 05/31/21 History HYDROcodone/APAP 5-325 [Como 1 each PO Q4HR PRN #30 tablet 05/18/21 02/02/22 Unknown Rx 5-325 mg TAB] ALBUTEROL NEB's [Proventil 0.083% 2.5 mg IH Q3HRT PRN #1 nebu 03/03/22 Unknown Rx NEBS] Clopidogrel [Plavix] 75 mg PO QDAY #90 tablet 03/03/22 Unknown Rx Divalproex [Sarina Serrano] 750 mg PO BID #60 tablet 03/03/22 Unknown Rx LORazepam [Ativan] 1 mg PO DAILY #30 tab 03/03/22 Unknown Rx Memantine Xr [Namenda Xr] 5 mg PO DAILY #30 cap 03/03/22 Unknown Rx Midodrine [Proamatine] 10 mg PO TID #90 tab 03/03/22 Unknown Rx Pantoprazole [Protonix TAB] 40 mg PO DAILY #30 tab 03/03/22 Unknown Rx QUEtiapine [SEROquel] 400 mg PO BID #60 tab 03/03/22 Unknown Rx risperiDONE [RisperDAL] 0.5 mg PO BID #60 tab 03/03/22 Unknown Rx Active Medications: Generic Name Dose Route Start Last Admin Trade Name Freq PRN Reason Stop Dose Admin Acetaminophen 650 mg 04/22/22 20:12 05/03/22 23:41 Acetaminophen 325 Mg/10.15 Ml Oral Liqd Unit Dose PO 650 mg Q6H PRN Administration Pain MILD(1-3)/Fever >100.5/DRAKE Acetylcysteine 200 mg 05/05/22 14:00 05/10/22 09:00 Acetylcysteine 20% 200 Mg/1 Ml *For Inhalation Use* INHALATION 05/10/22 13:59 200 mg TID CONNOR Administration Albumin Human 25 gm 04/21/22 13:00 04/22/22 16:31 Albumin Human 25% (25 Gm/100 Ml) Inj IV 25 gm BIANCA PRN Administration Hypotension Albuterol 2.5 mg 04/21/22 08:30 04/24/22 16:51 Albuterol 2.5 Mg/3 Ml Nebu IH 2.5 mg Q3HRT PRN Administration Shortness Of Breath Albuterol/Ipratropium 1 ampul 04/21/22 14:00 05/10/22 09:00 Ipratropium/Albuterol Sulfate 3 Ml Ampul.Neb IH 1 ampul TIDRT CONNOR Administration Docusate Sodium 100 mg 05/01/22 22:00 05/10/22 09:44 Docusate Sodium 100 Mg/10 Ml Oral Liqd FEEDTUBE Not Given BID [facility] Epoetin Lb-epbx 20,000 unit 04/23/22 12:00 05/09/22 14:58 Epoetin Lb-Epbx 20,000 Unit/1 Ml Vial IV 20,000 unit BIANCA PRN Administration HEMODIALYSIS Fentanyl 50 mcg 05/03/22 10:29 05/05/22 12:23 Fentanyl 100 Mcg/2 Ml Inj IV 25 mcg Q10MIN PRN Administration ANALGESIA Sodium Chloride 100 mls @ 999 mls/hr 04/22/22 09:12 Nacl 0.9% IV BIANCA PRN Hypotension Fentanyl Citrate 2,000 mcg in 100 mls @ 2.722 mls/hr 05/03/22 11:00 Fentanyl Drip Premix IV TITR CONNOR Protocol 1 MCG/KG/HR NORepinephrine/NS 8 MG-250 ML 8 mg in 250 mls @ 3.75 mls/hr 05/03/22 13:15 05/06/22 10:06 Norepinephrine/Ns 8 Mg-250 Ml (Double Conc) IV 0 mcg/min TITRATE CONNOR 0 mls/hr Titration Protocol 2 MCG/MIN Vasopressin 20 unit/ Sodium 101 mls @ 9.09 mls/hr 05/04/22 00:30 05/06/22 11:21 Chloride IV 0 units/min TITR CONNOR 0 mls/hr Infusion 0.03 UNITS/MIN Vancomycin HCl 750 mg/ Sodium 265 mls @ 166.667 mls/hr 05/09/22 22:00 05/09/22 21:27 Chloride IV 166.667 mls/hr TuThSa CONNOR Administration Lansoprazole 30 mg 04/23/22 10:00 05/10/22 09:40 Lansoprazole 30 Mg Solutab FEEDTUBE 30 mg QDAY CONNOR Administration Lorazepam 0.5 mg 04/25/22 09:59 Lorazepam 0.5 Mg Tab FEEDTUBE QDAY PRN Anxiety Memantine 5 mg 04/25/22 10:00 05/10/22 09:41 Memantine 5 Mg Tab FEEDTUBE 5 mg BID CONNOR Administration Metoclopramide HCl 5 mg 04/19/22 09:55 Metoclopramide 10 Mg/2 Ml Inj IV Q6H PRN Nausea And Vomiting Midodrine 20 mg 04/26/22 14:00 05/10/22 09:41 Midodrine 10 Mg Tab FEEDTUBE 20 mg TID CONNOR Administration Naloxone HCl 0.1 mg 04/19/22 09:55 Naloxone 0.4 Mg/1 Ml Inj IV Q2MIN PRN Res Rate </= 8 or 02 SAT < 92% Polyethylene Glycol 17 gm 05/03/22 10:00 05/10/22 09:44 Polyethylene Glycol 3350 17 Gm Powder FEEDTUBE Not Given QDAY CONNOR Risperidone 0.5 mg 04/25/22 11:00 05/10/22 09:41 Risperidone 1 Mg Tab FEEDTUBE 0.5 mg BID CONNOR Administration Scopolamine 1 each 05/02/22 10:00 05/08/22 11:01 Scopolamine Transdermal Patch 72 Hr TD 1 each Q3D CONNOR Administration Senna 17.2 mg 04/23/22 10:00 05/09/22 21:26 Sennosides 8.6 Mg Tab FEEDTUBE Not Given BID CONNOR Sodium Chloride 10 ml 04/19/22 12:00 05/10/22 09:46 Sodium Chloride 0.9% 10 Ml Flush Syringe IV 10 ml BID CONNOR Administration Sodium Chloride 10 ml 04/19/22 11:19 Sodium Chloride 0.9% 10 Ml Flush Syringe IV PRN PRN LINE FLUSH Valproic Acid 750 mg 04/22/22 22:00 05/10/22 09:43 Valproic Acid 250 Mg/5 Ml Oral Liqd FEEDTUBE 750 mg BID CONNOR Administration
[2022-05-10] MEDS: SENNOSIDES 8.6 MG TAB FEEDTUBE SCH ×2 (13:12→21:48)
--- NOTE | 2022-05-10 13:48 | Progress Note ---
Assessment and Plan Acute hypoxemic respiratory failure, Acute on Chronic Hypotension Acute on Chronic Metabolic Encephalopathy Possible Shock Syndrome SVT Elevated troponin, Bipolar disorder, Schizophrenia, Hyperkalemia ESRD on hemodialysis, Anemia of chronic disease, Type 2 NSTEMI GERD Subclinical Hypothyroidism Moderate protein caloric malnutrition - placed on SBT via PSV with p-supp @ 20 cm H2O - follow pleural fluid studies - LTAC transfer today tentatively - continue chest PT by RT - prn Levophed for target MAP > 65 mmHg - continue care as below otherwise; - continue Daily SAT and SBT assessment as tolerated - sedation prn for target RASS 0 to -1 - VAP bundle addressed - continue lung protective strategies - continue bronchodilators with pulmonary hygiene per RT - wean per pulmonary driven protocols otherwise - enteral nutrition at goal rate as tolerated - continue Midodrine for BP support - AB's per ID rec's (Vancomycin) - Albumin 25 gms of 25% solution prn with dialysis - continue HD/UF per nephrology prescription for toxin and volume clearance - continue accuchecks with glycemic control per SSI (While critically ill target blood glucose of 140-180 mg/dL; avoid hypoglycemia) - continue supplemental oxygen for target O2 sat's > 90% acutely - avoid nephrotoxins, renally dose all medications - continue to avoid benzodiazepine's, reduce the possibility of delirium - prn analgesia per CPOT score - Maintenance of sleep-wake cycle, avoid delirium - G.I. & VTE prophylaxis - PT/OT/ROM exercises - continue mobility protocols for pressure ulcer prophylaxis - Monitor hemodynamics closely - continue other care per attending / other consultants - discharge planning ongoing concurrently .... Re-evaluate in am & prn CONDITION: CRITICAL PROGNOSIS: GUARDED CODE STATUS: FULL CODE The high probability of a clinically significant, sudden or life-threatening deterioration of the [respiratory, cardiovascular, renal & neurologic] system(s) required my full and direct attention, intervention and personal management. The aggregate critical care time was [34] minutes without overlap. Time includes spent on; [x] Data Review and interpretation [x] Patient assessment and monitoring of vital signs [x] Documentation [x] Medication orders and management Subjective Date of service: 05/10/22 Principal diagnosis: Neurogenic dysphagia Interval history: Patient is seen today for: Acute hypoxemic respiratory failure; Shock / Hypotension; AMS; SVT; NSTEMI; Schizophrenia; ESRD on Dialysis; Moderate protein caloric malnutrition Seen and examined at bedside; 24hour events reviewed; nursing and respiratory care staff consulted; no adverse overnight events reported to me; resting in bed; remains on MVS; s/p thoracentesis and 1 liter pulled yesterday; not weaned yet today; denies N/V/F/C Objective Vital Signs - 12hr 05/10/22 05/10/22 05/10/22 01:45 02:00 02:15 Temperature Pulse Rate 109 H 104 H 99 H Pulse Rate [ Anterior Bilateral Throughout] Pulse Rate [ From Monitor] Respiratory 17 16 14 Rate Respiratory Rate [Anterior Bilateral Throughout] Blood Pressure 129/56 115/51 100/38 O2 Sat by Pulse 98 98 99 Oximetry 05/10/22 05/10/22 05/10/22 02:30 02:45 03:00 Temperature Pulse Rate 99 H 105 H 109 H Pulse Rate [ Anterior Bilateral Throughout] Pulse Rate [ From Monitor] Respiratory 14 14 18 Rate Respiratory Rate [Anterior Bilateral Throughout] Blood Pressure 95/38 118/55 117/58 O2 Sat by Pulse 99 100 98 Oximetry 05/10/22 05/10/22 05/10/22 03:16 03:30 03:45 Temperature Pulse Rate 110 H 109 H 107 H Pulse Rate [ Anterior Bilateral Throughout] Pulse Rate [ From Monitor] Respiratory 14 15 15 Rate Respiratory Rate [Anterior Bilateral Throughout] Blood Pressure 120/44 126/63 113/53 O2 Sat by Pulse 97 97 99 Oximetry 05/10/22 05/10/22 05/10/22 04:00 04:16 04:30 Temperature 99.1 F Pulse Rate 105 H 107 H 106 H Pulse Rate [ Anterior Bilateral Throughout] Pulse Rate [ 105 H From Monitor] Respiratory 3 L 14 18 Rate Respiratory Rate [Anterior Bilateral Throughout] Blood Pressure 114/59 105/45 117/50 O2 Sat by Pulse 99 99 99 Oximetry 05/10/22 05/10/22 05/10/22 04:45 05:00 05:15 Temperature Pulse Rate 109 H 108 H 104 H Pulse Rate [ Anterior Bilateral Throughout] Pulse Rate [ From Monitor] Respiratory 17 19 14 Rate Respiratory Rate [Anterior Bilateral Throughout] Blood Pressure 117/55 114/59 118/53 O2 Sat by Pulse 98 98 99 Oximetry 05/10/22 05/10/22 05/10/22 05:30 05:45 06:00 Temperature Pulse Rate 103 H 99 H 99 H Pulse Rate [ Anterior Bilateral Throughout] Pulse Rate [ From Monitor] Respiratory 16 15 15 Rate Respiratory Rate [Anterior Bilateral Throughout] Blood Pressure 100/46 97/47 96/50 O2 Sat by Pulse 99 99 100 Oximetry 05/10/22 05/10/22 05/10/22 06:16 06:30 06:45 Temperature Pulse Rate 106 H 106 H 103 H Pulse Rate [ Anterior Bilateral Throughout] Pulse Rate [ From Monitor] Respiratory 15 17 16 Rate Respiratory Rate [Anterior Bilateral Throughout] Blood Pressure 105/58 110/64 104/54 O2 Sat by Pulse 98 99 97 Oximetry 05/10/22 05/10/22 05/10/22 07:00 07:15 07:30 Temperature Pulse Rate 99 H 98 H 96 H Pulse Rate [ Anterior Bilateral Throughout] Pulse Rate [ From Monitor] Respiratory 14 14 15 Rate Respiratory Rate [Anterior Bilateral Throughout] Blood Pressure 96/48 95/48 90/48 O2 Sat by Pulse 99 100 100 Oximetry 05/10/22 05/10/22 05/10/22 07:45 08:00 08:10 Temperature 98.7 F Pulse Rate 101 H 94 H Pulse Rate [ Anterior Bilateral Throughout] Pulse Rate [ From Monitor] Respiratory 16 14 Rate Respiratory Rate [Anterior Bilateral Throughout] Blood Pressure 112/53 104/47 O2 Sat by Pulse 100 100 100 Oximetry 05/10/22 05/10/22 05/10/22 08:15 08:17 08:30 Temperature Pulse Rate 107 H 101 H 106 H Pulse Rate [ Anterior Bilateral Throughout] Pulse Rate [ From Monitor] Respiratory 22 18 Rate Respiratory Rate [Anterior Bilateral Throughout] Blood Pressure 120/47 120/47 119/85 O2 Sat by Pulse 100 100 100 Oximetry 05/10/22 05/10/22 05/10/22 09:00 12:54 13:20 Temperature Pulse Rate 109 H 100 H Pulse Rate [ 102 H Anterior Bilateral Throughout] Pulse Rate [ From Monitor] Respiratory 25 H Rate Respiratory 20 Rate [Anterior Bilateral Throughout] Blood Pressure 112/58 107/41 O2 Sat by Pulse 99 100 Oximetry Constitutional: no acute distress, asleep, other (eldely female with mildly increased respiratory effort at rest on MVS) Eyes: non-icteric ENT: oropharynx moist, other (ETT 24 cm LAURA) Neck: supple, no lymphadenopathy, no JVD Effort: mildly labored Ascultation: Bilateral: diminished breath sounds (bases ), rhonchi (scant), other (referred upper airway sounds) Percussion: Bilateral: not dull Cardiovascular: regular rate and rhythm, other (S1,S2) Gastrointestinal: normoactive bowel sounds, soft, non-tender, non-distended, oth er (+ PEG) Integumentary: normal Extremities: no cyanosis, pulses normal, no ischemia or petechiae, edema (1+ bilaterally) Neurologic: normal mental status, non-focal exam (grossly), pupils equal and round, other (appropriate non verbal responses to questions) Psychiatric: mood appropriate, affect normal CBC and BMP: 05/09/22 04:25 05/09/22 04:25 ABG, PT/INR, D-dimer: ABG ABG pH 7.421 pH Units (7.350-7.450) 05/08/22 21:00 ABG pCO2 42.4 mm Hg 05/08/22 21:00 ABG pO2 68.8 mm Hg (80.0-90.0) L 05/08/22 21:00 ABG O2 Saturation 95.7 % (95.0-99.0) 05/08/22 21:00 PT/INR, D-dimer PT 17.6 Sec. (12.2-14.9) H 05/04/22 04:26 INR 1.29 (0.87-1.13) H 05/04/22 04:26 Abnormal lab findings: Abnormal Labs 04/19/22 04/19/22 04/19/22 04:53 04:53 04:53 WBC RBC 3.06 L Hgb 8.6 L Hct 28.0 L RDW 16.3 H Plt Count [place] % (Auto) 11.3 H Lymph # (Auto) Seg Neuts % (Manual) Lymphocytes % (Manual) Nucleated RBC % Seg Neutrophils # Man Lymphocytes # (Manual) PT INR APTT Heparin Anti-Xa Level ABG pH ABG pO2 ABG HCO3 ABG Base Excess ABG Hemoglobin Oxyhemoglobin Sodium Potassium 5.1 H Chloride Carbon Dioxide 21 L BUN 94 H Creatinine 6.3 H Glucose POC Glucose Phosphorus Magnesium Troponin T 0.415 H* Albumin 2.7 L Free T4 0.28 L Crossmatch 04/19/22 04/19/22 04/20/22 19:40 19:40 05:30 WBC 4.1 L RBC 2.97 L Hgb 8.5 L 8.2 L Hct 27.8 L 27.1 L RDW 17.0 H Plt Count [place] % (Auto) 15.2 H Lymph # (Auto) 1.1 L Seg Neuts % (Manual) Lymphocytes % (Manual) Nucleated RBC % Seg Neutrophils # Man Lymphocytes # (Manual) PT 17.9 H INR 1.28 H APTT 199.1 H* Heparin Anti-Xa Level ABG pH ABG pO2 ABG HCO3 ABG Base Excess ABG Hemoglobin Oxyhemoglobin Sodium Potassium Chloride Carbon Dioxide BUN Creatinine Glucose POC Glucose Phosphorus Magnesium Troponin T Albumin Free T4 Crossmatch 04/20/22 04/20/22 04/21/22 05:30 18:23 00:29 WBC RBC Hgb Hct RDW Plt Count [place] % (Auto) Lymph # (Auto) Seg Neuts % (Manual) Lymphocytes % (Manual) Nucleated RBC % Seg Neutrophils # Man Lymphocytes # (Manual) PT INR APTT Heparin Anti-Xa Level 0.17 L ABG pH ABG pO2 ABG HCO3 ABG Base Excess ABG Hemoglobin Oxyhemoglobin Sodium Potassium Chloride Carbon Dioxide 21 L BUN 95 H Creatinine 6.6 H Glucose 139 H POC Glucose Phosphorus Magnesium 2.60 H Troponin T Albumin 2.4 L Free T4 Crossmatch 04/21/22 04/21/22 04/22/22 04:00 04:00 03:45 WBC RBC 2.74 L Hgb 7.7 L Hct 24.7 L RDW 16.6 H Plt Count [place] % (Auto) Lymph # (Auto) Seg Neuts % (Manual) Lymphocytes % (Manual) Nucleated RBC % Seg Neutrophils # Man Lymphocytes # (Manual) PT INR APTT Heparin Anti-Xa Level < 0.10 L ABG pH ABG pO2 ABG HCO3 ABG Base Excess ABG Hemoglobin Oxyhemoglobin Sodium 133 L Potassium Chloride Carbon Dioxide 20 L BUN 89 H Creatinine 6.6 H Glucose 131 H POC Glucose Phosphorus 6.40 H Magnesium 2.50 H Troponin T Albumin Free T4 Crossmatch 04/22/22 04/22/22 04/22/22 03:45 12:13 14:30 WBC RBC Hgb Hct RDW Plt Count [place] % (Auto) Lymph # (Auto) Seg Neuts % (Manual) Lymphocytes % (Manual) Nucleated RBC % Seg Neutrophils # Man Lymphocytes # (Manual) PT INR APTT Heparin Anti-Xa Level 0.11 L 0.11 L ABG pH ABG pO2 ABG HCO3 ABG Base Excess ABG Hemoglobin Oxyhemoglobin Sodium 136 L Potassium Chloride Carbon Dioxide 18 L BUN 90 H Creatinine 6.3 H Glucose 121 H POC Glucose Phosphorus 6.50 H Magnesium Troponin T Albumin Free T4 Crossmatch 04/22/22 04/23/22 04/23/22 23:08 02:17 04:10 WBC RBC Hgb 7.3 L Hct 23.3 L RDW Plt Count [place] % (Auto) Lymph # (Auto) Seg Neuts % (Manual) Lymphocytes % (Manual) Nucleated RBC % Seg Neutrophils # Man Lymphocytes # (Manual) PT INR APTT Heparin Anti-Xa Level 0.14 L ABG pH ABG pO2 ABG HCO3 ABG Base Excess ABG Hemoglobin Oxyhemoglobin Sodium Potassium Chloride Carbon Dioxide BUN Creatinine Glucose POC Glucose 153 H Phosphorus Magnesium Troponin T Albumin Free T4 Crossmatch 04/23/22 04/23/22 04/23/22 04:10 06:09 23:22 WBC RBC Hgb Hct RDW Plt Count [place] % (Auto) Lymph # (Auto) Seg Neuts % (Manual) Lymphocytes % (Manual) Nucleated RBC % Seg Neutrophils # Man Lymphocytes # (Manual) PT INR APTT Heparin Anti-Xa Level ABG pH ABG pO2 ABG HCO3 ABG Base Excess ABG Hemoglobin Oxyhemoglobin Sodium Potassium Chloride Carbon Dioxide BUN 36 H Creatinine 3.4 H Glucose 131 H POC Glucose 141 H 114 H Phosphorus Magnesium Troponin T Albumin Free T4 Crossmatch 04/24/22 04/24/22 04/24/22 02:10 04:00 04:00 WBC RBC 2.48 L Hgb 7.1 L Hct 22.6 L RDW 16.9 H Plt Count [place] % (Auto) Lymph # (Auto) Seg Neuts % (Manual) Lymphocytes % (Manual) Nucleated RBC % Seg Neutrophils # Man Lymphocytes # (Manual) PT INR APTT Heparin Anti-Xa Level 0.12 L ABG pH ABG pO2 ABG HCO3 ABG Base Excess ABG Hemoglobin Oxyhemoglobin Sodium 134 L Potassium Chloride Carbon Dioxide BUN 42 H Creatinine 3.9 H Glucose 141 H POC Glucose Phosphorus Magnesium Troponin T Albumin Free T4 Crossmatch 04/24/22 04/24/22 04/24/22 05:03 10:20 11:24 WBC RBC Hgb Hct RDW Plt Count [place] % (Auto) Lymph # (Auto) Seg Neuts % (Manual) Lymphocytes % (Manual) Nucleated RBC % Seg Neutrophils # Man Lymphocytes # (Manual) PT INR APTT Heparin Anti-Xa Level < 0.10 L ABG pH ABG pO2 ABG HCO3 ABG Base Excess ABG Hemoglobin Oxyhemoglobin Sodium Potassium Chloride Carbon Dioxide BUN Creatinine Glucose POC Glucose 142 H 144 H Phosphorus Magnesium Troponin T Albumin Free T4 Crossmatch 04/25/22 04/25/22 04/25/22 00:15 04:11 04:11 WBC 4.4 L RBC 2.38 L Hgb 6.7 L Hct 21.7 L RDW 17.2 H Plt Count [place] % (Auto) Lymph # (Auto) Seg Neuts % (Manual) Lymphocytes % (Manual) Nucleated RBC % Seg Neutrophils # Man Lymphocytes # (Manual) PT INR APTT Heparin Anti-Xa Level ABG pH ABG pO2 ABG HCO3 ABG Base Excess ABG Hemoglobin Oxyhemoglobin Sodium 134 L Potassium Chloride 97.1 L Carbon Dioxide BUN 47 H Creatinine 4.3 H Glucose 106 H POC Glucose 136 H Phosphorus Magnesium Troponin T Albumin Free T4 Crossmatch 04/25/22 04/25/22 04/25/22 06:01 15:30 22:44 WBC RBC Hgb 8.8 L Hct 28.1 L D RDW Plt Count [place] % (Auto) Lymph # (Auto) Seg Neuts % (Manual) Lymphocytes % (Manual) Nucleated RBC % Seg Neutrophils # Man Lymphocytes # (Manual) PT INR APTT Heparin Anti-Xa Level ABG pH ABG pO2 ABG HCO3 ABG Base Excess ABG Hemoglobin Oxyhemoglobin Sodium Potassium Chloride Carbon Dioxide BUN Creatinine Glucose POC Glucose 137 H Phosphorus Magnesium Troponin T Albumin Free T4 Crossmatch See Detail 04/26/22 04/27/22 04/27/22 04:20 04:45 04:45 WBC RBC 2.81 L 3.13 L Hgb 8.0 L 9.0 L Hct 25.4 L 29.1 L RDW 16.2 H 17.4 H Plt Count [place] % (Auto) Lymph # (Auto) Seg Neuts % (Manual) Lymphocytes % (Manual) Nucleated RBC % Seg Neutrophils # Man Lymphocytes # (Manual) PT INR APTT Heparin Anti-Xa Level ABG pH ABG pO2 ABG HCO3 ABG Base Excess ABG Hemoglobin Oxyhemoglobin Sodium 131 L Potassium Chloride 93.5 L Carbon Dioxide BUN 44 H Creatinine 3.9 H Glucose 135 H POC Glucose Phosphorus Magnesium Troponin T Albumin Free T4 Crossmatch 04/27/22 04/28/22 04/28/22 23:38 05:26 07:54 WBC 11.1 H RBC 2.40 L Hgb 6.9 L Hct 22.1 L D RDW 17.2 H Plt Count [place] % (Auto) Lymph # (Auto) Seg Neuts % (Manual) Lymphocytes % (Manual) Nucleated RBC % Seg Neutrophils # Man Lymphocytes # (Manual) PT INR APTT Heparin Anti-Xa Level ABG pH ABG pO2 ABG HCO3 ABG Base Excess ABG Hemoglobin Oxyhemoglobin Sodium Potassium Chloride Carbon Dioxide BUN Creatinine Glucose POC Glucose 229 H 169 H Phosphorus Magnesium Troponin T Albumin Free T4 Crossmatch 04/28/22 04/28/22 04/29/22 12:31 17:54 00:49 WBC RBC Hgb Hct RDW Plt Count [place] % (Auto) Lymph # (Auto) Seg Neuts % (Manual) Lymphocytes % (Manual) Nucleated RBC % Seg Neutrophils # Man Lymphocytes # (Manual) PT INR APTT Heparin Anti-Xa Level ABG pH ABG pO2 ABG HCO3 ABG Base Excess ABG Hemoglobin Oxyhemoglobin Sodium Potassium Chloride Carbon Dioxide BUN Creatinine Glucose POC Glucose 132 H 138 H 189 H Phosphorus Magnesium Troponin T Albumin Free T4 Crossmatch 04/29/22 04/29/22 04/29/22 06:42 10:54 10:54 WBC 11.8 H RBC 2.93 L Hgb 8.6 L Hct 26.2 L RDW 16.8 H Plt Count [place] % (Auto) Lymph # (Auto) Seg Neuts % (Manual) Lymphocytes % (Manual) Nucleated RBC % Seg Neutrophils # Man Lymphocytes # (Manual) PT INR APTT Heparin Anti-Xa Level ABG pH ABG pO2 ABG HCO3 ABG Base Excess ABG Hemoglobin Oxyhemoglobin Sodium 129 L Potassium Chloride 91.5 L Carbon Dioxide BUN 46 H Creatinine 3.1 H Glucose 180 H POC Glucose 196 H Phosphorus Magnesium Troponin T Albumin Free T4 Crossmatch 04/29/22 04/29/22 04/30/22 12:03 23:32 05:57 WBC RBC Hgb Hct RDW Plt Count [place] % (Auto) Lymph # (Auto) Seg Neuts % (Manual) Lymphocytes % (Manual) Nucleated RBC % Seg Neutrophils # Man Lymphocytes # (Manual) PT INR APTT Heparin Anti-Xa Level ABG pH ABG pO2 ABG HCO3 ABG Base Excess ABG Hemoglobin Oxyhemoglobin Sodium Potassium Chloride Carbon Dioxide BUN Creatinine Glucose POC Glucose 169 H 170 H 151 H Phosphorus Magnesium Troponin T Albumin Free T4 Crossmatch 04/30/22 04/30/22 04/30/22 11:28 16:39 23:22 WBC RBC Hgb Hct RDW Plt Count [place] % (Auto) Lymph # (Auto) Seg Neuts % (Manual) Lymphocytes % (Manual) Nucleated RBC % Seg Neutrophils # Man Lymphocytes # (Manual) PT INR APTT Heparin Anti-Xa Level ABG pH ABG pO2 ABG HCO3 ABG Base Excess ABG Hemoglobin Oxyhemoglobin Sodium Potassium Chloride Carbon Dioxide BUN Creatinine Glucose POC Glucose 159 H 147 H 170 H Phosphorus Magnesium Troponin T Albumin Free T4 Crossmatch 05/01/22 05/01/22 05/01/22 04:00 05:34 15:23 WBC RBC 2.92 L Hgb 8.4 L Hct 26.7 L RDW 16.6 H Plt Count [place] % (Auto) Lymph # (Auto) Seg Neuts % (Manual) Lymphocytes % (Manual) Nucleated RBC % Seg Neutrophils # Man Lymphocytes # (Manual) PT INR APTT Heparin Anti-Xa Level ABG pH ABG pO2 74.2 L ABG HCO3 27.8 H ABG Base Excess ABG Hemoglobin 8.7 L Oxyhemoglobin 94.5 L Sodium Potassium Chloride Carbon Dioxide BUN Creatinine Glucose POC Glucose 140 H Phosphorus Magnesium Troponin T Albumin Free T4 Crossmatch 05/02/22 05/02/22 05/02/22 05:54 05:54 05:54 WBC RBC 2.85 L Hgb 8.3 L Hct 25.9 L RDW 16.5 H Plt Count [place] % (Auto) Lymph # (Auto) Seg Neuts % (Manual) Lymphocytes % (Manual) Nucleated RBC % Seg Neutrophils # Man Lymphocytes # (Manual) PT INR APTT Heparin Anti-Xa Level ABG pH ABG pO2 ABG HCO3 ABG Base Excess ABG Hemoglobin Oxyhemoglobin Sodium 130 L 128 L Potassium Chloride 90.9 L 90.0 L Carbon Dioxide BUN 49 H 49 H Creatinine 3.7 H 3.8 H Glucose 191 H 184 H POC Glucose Phosphorus Magnesium Troponin T Albumin Free T4 Crossmatch 05/02/22 05/03/22 05/03/22 14:15 04:24 04:24 WBC RBC 2.71 L Hgb 7.8 L Hct 24.8 L RDW 16.6 H Plt Count [place] % (Auto) Lymph # (Auto) Seg Neuts % (Manual) Lymphocytes % (Manual) Nucleated RBC % Seg Neutrophils # Man Lymphocytes # (Manual) PT INR APTT 39.4 H Heparin Anti-Xa Level ABG pH ABG pO2 ABG HCO3 29.1 H ABG Base Excess 4.3 H ABG Hemoglobin 8.4 L Oxyhemoglobin 94.8 L Sodium Potassium Chloride Carbon Dioxide BUN Creatinine Glucose POC Glucose Phosphorus Magnesium Troponin T Albumin Free T4 Crossmatch 05/03/22 05/03/22 05/03/22 04:24 15:17 17:30 WBC RBC Hgb Hct RDW Plt Count [place] % (Auto) Lymph # (Auto) Seg Neuts % (Manual) Lymphocytes % (Manual) Nucleated RBC % Seg Neutrophils # Man Lymphocytes # (Manual) PT INR APTT Heparin Anti-Xa Level ABG pH 7.577 H ABG pO2 140.4 H ABG HCO3 26.4 H ABG Base Excess 4.0 H ABG Hemoglobin 5.4 L Oxyhemoglobin Sodium 132 L Potassium Chloride 93.0 L Carbon Dioxide BUN 31 H Creatinine 2.8 H Glucose 119 H POC Glucose 60 L Phosphorus 2.10 L Magnesium Troponin T Albumin Free T4 Crossmatch 05/03/22 05/04/22 05/04/22 23:33 04:26 04:26 WBC 16.0 H RBC 2.39 L Hgb 6.9 L Hct 21.4 L RDW 15.8 H Plt Count [place] % (Auto) Lymph # (Auto) Seg Neuts % (Manual) Lymphocytes % (Manual) Nucleated RBC % Seg Neutrophils # Man Lymphocytes # (Manual) PT INR APTT Heparin Anti-Xa Level ABG pH ABG pO2 ABG HCO3 ABG Base Excess ABG Hemoglobin Oxyhemoglobin Sodium 133 L Potassium Chloride 94.8 L Carbon Dioxide BUN 34 H Creatinine 3.5 H Glucose 175 H POC Glucose 106 H Phosphorus Magnesium Troponin T Albumin Free T4 Crossmatch 05/04/22 05/04/22 05/04/22 04:26 05:30 05:40 WBC RBC Hgb Hct RDW Plt Count [place] % (Auto) Lymph # (Auto) Seg Neuts % (Manual) Lymphocytes % (Manual) Nucleated RBC % Seg Neutrophils # Man Lymphocytes # (Manual) PT 17.6 H INR 1.29 H APTT Heparin Anti-Xa Level ABG pH 7.547 H ABG pO2 141.7 H ABG HCO3 27.2 H ABG Base Excess 5.3 H ABG Hemoglobin 6.9 L Oxyhemoglobin Sodium Potassium Chloride Carbon Dioxide BUN Creatinine Glucose POC Glucose Phosphorus Magnesium Troponin T Albumin Free T4 Crossmatch See Detail 05/04/22 05/04/22 05/04/22 05:41 12:55 18:10 WBC RBC Hgb Hct RDW Plt Count [place] % (Auto) Lymph # (Auto) Seg Neuts % (Manual) Lymphocytes % (Manual) Nucleated RBC % Seg Neutrophils # Man Lymphocytes # (Manual) PT INR APTT Heparin Anti-Xa Level ABG pH ABG pO2 ABG HCO3 ABG Base Excess ABG Hemoglobin Oxyhemoglobin Sodium Potassium Chloride Carbon Dioxide BUN Creatinine Glucose POC Glucose 177 H 141 H 143 H Phosphorus Magnesium Troponin T Albumin Free T4 Crossmatch 05/05/22 05/05/22 05/05/22 00:05 04:20 04:20 WBC 12.8 H RBC 2.81 L Hgb 8.0 L Hct 24.8 L RDW 16.8 H Plt Count [place] % (Auto) Lymph # (Auto) Seg Neuts % (Manual) 86.0 H Lymphocytes % (Manual) 4.0 L Nucleated RBC % 1.0 H Seg Neutrophils # Man 11.0 H Lymphocytes # (Manual) 0.5 L PT INR APTT Heparin Anti-Xa Level ABG pH ABG pO2 ABG HCO3 ABG Base Excess ABG Hemoglobin Oxyhemoglobin Sodium 130 L Potassium 3.3 L Chloride 94.0 L Carbon Dioxide BUN 24 H Creatinine 2.3 H Glucose 163 H POC Glucose 163 H Phosphorus 1.50 L Magnesium Troponin T Albumin Free T4 Crossmatch 05/05/22 05/05/22 05/05/22 05:18 10:06 12:11 WBC RBC Hgb Hct RDW Plt Count [place] % (Auto) Lymph # (Auto) Seg Neuts % (Manual) Lymphocytes % (Manual) Nucleated RBC % Seg Neutrophils # Man Lymphocytes # (Manual) PT INR APTT Heparin Anti-Xa Level ABG pH ABG pO2 91.7 H ABG HCO3 27.4 H ABG Base Excess ABG Hemoglobin 11.4 L Oxyhemoglobin Sodium Potassium Chloride Carbon Dioxide BUN Creatinine Glucose POC Glucose 163 H 186 H Phosphorus Magnesium Troponin T Albumin Free T4 Crossmatch 05/05/22 05/06/22 05/06/22 16:29 04:45 04:59 WBC RBC Hgb Hct RDW Plt Count [place] % (Auto) Lymph # (Auto) Seg Neuts % (Manual) Lymphocytes % (Manual) Nucleated RBC % Seg Neutrophils # Man Lymphocytes # (Manual) PT INR APTT Heparin Anti-Xa Level ABG pH ABG pO2 112.7 H ABG HCO3 ABG Base Excess ABG Hemoglobin 7.8 L Oxyhemoglobin Sodium Potassium Chloride Carbon Dioxide BUN Creatinine Glucose POC Glucose 170 H 146 H Phosphorus Magnesium Troponin T Albumin Free T4 Crossmatch 05/06/22 05/06/22 05/06/22 05:02 05:02 11:34 WBC RBC 2.78 L Hgb 7.9 L Hct 25.1 L RDW 16.7 H Plt Count 119 L [place] % (Auto) Lymph # (Auto) Seg Neuts % (Manual) Lymphocytes % (Manual) Nucleated RBC % Seg Neutrophils # Man Lymphocytes # (Manual) PT INR APTT Heparin Anti-Xa Level ABG pH ABG pO2 ABG HCO3 ABG Base Excess ABG Hemoglobin Oxyhemoglobin Sodium 135 L Potassium 3.3 L Chloride 97.9 L Carbon Dioxide BUN 30 H Creatinine 2.7 H Glucose 148 H POC Glucose 130 H Phosphorus 1.50 L Magnesium Troponin T Albumin Free T4 Crossmatch 05/06/22 05/06/22 05/07/22 16:48 23:34 04:15 WBC RBC 2.95 L Hgb 8.4 L Hct 26.7 L RDW 16.7 H Plt Count 112 L [place] % (Auto) Lymph # (Auto) Seg Neuts % (Manual) Lymphocytes % (Manual) Nucleated RBC % Seg Neutrophils # Man Lymphocytes # (Manual) PT INR APTT Heparin Anti-Xa Level ABG pH ABG pO2 ABG HCO3 ABG Base Excess ABG Hemoglobin Oxyhemoglobin Sodium Potassium Chloride Carbon Dioxide BUN Creatinine Glucose POC Glucose 121 H 145 H Phosphorus Magnesium Troponin T Albumin Free T4 Crossmatch 05/07/22 05/07/22 05/07/22 04:15 05:26 11:08 WBC RBC Hgb Hct RDW Plt Count [place] % (Auto) Lymph # (Auto) Seg Neuts % (Manual) Lymphocytes % (Manual) Nucleated RBC % Seg Neutrophils # Man Lymphocytes # (Manual) PT INR APTT Heparin Anti-Xa Level ABG pH ABG pO2 ABG HCO3 ABG Base Excess ABG Hemoglobin Oxyhemoglobin Sodium 131 L Potassium 3.4 L Chloride 95.3 L Carbon Dioxide BUN 28 H Creatinine 2.5 H Glucose 140 H POC Glucose 136 H 136 H Phosphorus 1.20 L Magnesium Troponin T Albumin Free T4 Crossmatch 05/07/22 05/07/22 05/08/22 17:26 23:23 04:06 WBC RBC 2.87 L Hgb 8.2 L Hct 25.8 L RDW 16.2 H Plt Count 118 L [place] % (Auto) Lymph # (Auto) Seg Neuts % (Manual) Lymphocytes % (Manual) Nucleated RBC % Seg Neutrophils # Man Lymphocytes # (Manual) PT INR APTT Heparin Anti-Xa Level ABG pH ABG pO2 ABG HCO3 ABG Base Excess ABG Hemoglobin Oxyhemoglobin Sodium Potassium Chloride Carbon Dioxide BUN Creatinine Glucose POC Glucose 135 H 123 H Phosphorus Magnesium Troponin T Albumin Free T4 Crossmatch 05/08/22 05/08/22 05/08/22 04:06 04:40 11:31 WBC RBC Hgb Hct RDW Plt Count [place] % (Auto) Lymph # (Auto) Seg Neuts % (Manual) Lymphocytes % (Manual) Nucleated RBC % Seg Neutrophils # Man Lymphocytes # (Manual) PT INR APTT Heparin Anti-Xa Level ABG pH 7.482 H ABG pO2 103.9 H ABG HCO3 ABG Base Excess ABG Hemoglobin 8.1 L Oxyhemoglobin Sodium 132 L Potassium 3.3 L Chloride 93.2 L Carbon Dioxide BUN 36 H Creatinine 2.9 H Glucose 145 H POC Glucose 138 H Phosphorus 2.00 L D Magnesium Troponin T Albumin Free T4 Crossmatch 05/08/22 05/08/22 05/08/22 16:11 21:00 23:46 WBC RBC Hgb Hct RDW Plt Count [place] % (Auto) Lymph # (Auto) Seg Neuts % (Manual) Lymphocytes % (Manual) Nucleated RBC % Seg Neutrophils # Man Lymphocytes # (Manual) PT INR APTT Heparin Anti-Xa Level ABG pH ABG pO2 68.8 L ABG HCO3 27.0 H ABG Base Excess ABG Hemoglobin 8.4 L Oxyhemoglobin 93.4 L Sodium Potassium Chloride Carbon Dioxide BUN Creatinine Glucose POC Glucose 134 H 142 H Phosphorus Magnesium Troponin T Albumin Free T4 Crossmatch 05/09/22 05/09/22 05/09/22 04:25 04:25 11:29 WBC RBC 2.86 L Hgb 8.0 L Hct 25.7 L RDW 16.2 H Plt Count 101 L Steele % (Auto) Lymph # (Auto) Seg Neuts % (Manual) Lymphocytes % (Manual) Nucleated RBC % Seg Neutrophils # Man Lymphocytes # (Manual) PT INR APTT Heparin Anti-Xa Level ABG pH ABG pO2 ABG HCO3 ABG Base Excess ABG Hemoglobin Oxyhemoglobin Sodium 132 L Potassium 3.5 L Chloride 93.7 L Carbon Dioxide BUN 42 H Creatinine 3.0 H Glucose 145 H POC Glucose 180 H Phosphorus Magnesium Troponin T Albumin Free T4 Crossmatch 05/09/22 05/10/22 16:19 05:55 WBC RBC Hgb Hct RDW Plt Count Steele % (Auto) Lymph # (Auto) Seg Neuts % (Manual) Lymphocytes % (Manual) Nucleated RBC % Seg Neutrophils # Man Lymphocytes # (Manual) PT INR APTT Heparin Anti-Xa Level ABG pH ABG pO2 ABG HCO3 ABG Base Excess ABG Hemoglobin Oxyhemoglobin Sodium Potassium Chloride Carbon Dioxide BUN Creatinine Glucose POC Glucose 143 H 164 H Phosphorus Magnesium Troponin T Albumin Free T4 Crossmatch Chest x-ray: image reviewed (marked improvement in lung volumes on right without pneumothorax) Allied health notes reviewed: nursing
--- NOTE | 2022-05-10 17:09 | Progress Note ---
<NONALORRAINE WintersSue - Last Filed: 05/10/22 17:10> Assessment and Plan Assessment and plan: This is a 66-year-old female with HTN, GERD, seizure disorder, vascular dementia, ESRD on HD, chronic hypertension, bipolar, schizophrenia, anxiety admitted with acute hypoxic respiratory failure, acute on chronic hypotension, acute on chronic metabolic encephalopathy and SVT Neuro: h/o vascular dementia, schizophrenia, bipolar, anxiety disorder -Continue home Seroquel at reduced dose -As needed Ativan -Reorientation as needed -Maintain sleep-wake cycle -As needed analgesia -Continue home memantine, respiradol, valproic acid -CT head showed no acute intracranial abnormalities, no significant interval changes -Psych consulted, appreciate recommendations Cardiac: SVT s/p cardioversion, chronic hypotension, NSTEMI type II -Cardiology consulted, appreciate recommendations -Blood pressure monitoring per protocol -s/p vasopressor support with Levophed -Cortisol 24.4 -s/p Fludrocortisone for 4 doses -Midodrine 20mg TID -Echo 01/31/2022-EF 60 to 65%. Doppler flow pattern suggests impaired LV relaxation. Right ventricle systolic function is normal trace aortic regurgitat ion. Trace mitral regurgitation. -Lipitor, Plavix Respiratory: Acute hypoxic respiratory failure -CCM consulted, appreciate recommendations -Chest ultrasound showed bilateral pleural effusions, right greater than left -05/05 s/p therapeutic bronch at the bedside -Intubated 05/01 for bronch with 7.5 oett at 22 at the lips -ABG abg and CXR noted -AM vent settings: AC Rate 14, TV 450, Peep 6, FiO2 30% -See RT notes for titration -Pulmonary hygiene -SPO2 monitor per protocol -CTA chest with contrast shows large right and moderate-sized left pleural effusions with moderate body wall edema, groundglass pulmonary opacities in the upper lobes likely representing atypical pneumonia, no CT evidence of pulmonary embolism. -Chest US pending GI: Moderate protein calorie malnutrition, dysphagia s/p PEG -GI consulted -s/p peg 05/04 -24 hours + 1454 mL -PPI -TF -BR: Senokot : ESRD on HD, hypophosphatemia, hypokalemia -Nephrology consulted, appreciate recommendations -HD per nephrology (TThSat) -Monitor intake and output -Renally dose medications -Avoid nephrotoxic medications -Epogen 3 times daily -Trend BMP ID: Septic Shock (unable to determine status), MRSA PNA -ID consulted, appreciate recommendations -f/u blood culture -04/19 blood cultures x2 NGTD, bronch wash with MRSA -ABX therapy with vanco -Monitor WBC and temperature curve Endo: NAD -Avoid hypoglycemia Heme: Anemia of chronic disease, RIJ thrombus (chronic), leukocytosis -Vascular surgery consulted, appreciate recommendations -no need for heparin gtt per vascular surgery -Trend CBC -Transfuse hemoglobin less than 7 -s/p 3 unit PRBC -Epogen 3 times daily -SCDs to BLE while in bed The high probability of a clinically significant, sudden or life threatening deterioration of the [multiple] system(s) required my full and direct attention, intervention and personal management. The aggregate critical care time was [60] minutes. This time is in addition to time spent performing reported procedures but includes the following: [x] Data Review and interpretation [x] Patient assessment and monitoring of vital signs [x] Documentation [x] Medication orders and management Disposition Plan: icu Total Time Spent with Patient (Minutes): 60 History Interval history: This is a 66-year-old female with HTN, GERD, seizure disorder, vascular dementia, ESRD on HD (TTS), OA, chronic hypotension, bipolar, schizophrenia, anxiety examined mobility with a resident of [facility] present to the emergency department on 04/19 with altered mental status and for being combati ve causing her to miss several days of hemodialysis. On presentation patient was found to be more hypertensive than usual and on room air with oxygen saturations in the 90s and she subsequently went into SVT into the 150s requiring cardioversion under conscious sedation. Patient was admitted to the hospital service with acute hypoxic respiratory failure, acute on chronic hypotension, acute on chronic metabolic encephalopathy, SVT, hyperkalemia, NSTEMI type II to the ICU with consults to CCM, nephrology cardiology and psych. Hospital Course to Date: 04/20: Patient went into Afib with RVR overnight, now on amiodarone gtt per cardio. Patient remains in AFib with RVR this am, HR in the 120-140s. BP marginal on Levophed gtt, currently not a candidate for BB. Midodrine increased to 15mg TID. 2D Echo pending. On heparin gtt per protocol. No HD today per nephro due to hypotension and tachycardia. 04/21: Converted to SR this am, remains on Amiodarone and heparin. Awaiting cardio final recommendations. Still on Levophed gtt for low BP, given patient history of chronic hypotension, Wean pressor for MAP goal of 60s. Patient is pocketing foods, currently NPO, awaiting speech eval and treat. 04/22: Patient passed speech swallow eval yesterday, however, patient is refusing PO intakes including meds. Will insert DHT for nutrition and meds administration. Patient remains in SR this am, amiodaron gtt transitioned to PO per cardio. Patient remains on heparin and Levophed gtt. Patient has not received PO midrodrine for 24hrs, resume meds once DHT is inserted. Keep femoral CVC for another 24hrs, anticipating will be able to wean off pressor once patient receive midodrine. Will reassess in the morning. No HD overnight, unable to cannulate AVF, plan to attempt again today per Nephro. Possible IR/Vascular surgery consult if unsuccessful again today. 04/23: Mentation a lot better this am. DHT was inserted, meds resumed and TF initiated. Levophed gtt increased overnight due to worsen hypotension, suspected it is due to sedative agents. Seroquel decreased to 200mg BID and scheduled ativan switched to PRN. Continue midodrine TID and wean off levophed gtt for MAP goal of 60. Patient tolerated HD yesterday, continue iHD per Nephrology. CCM recommendations noted, Chest US ordered for pleural effusion. 04/24: RN instructed to wean Levophed off, goal MAP of 60. Heparin drip stopped due to decreasing hemoglobin. 04/25: ST had cleared the patient for pured diet which will be started today, hemodialysis planned for today, patient was to be anemic and will receive 1 unit PRBC with HD. We will increase midodrine to 20 mg 3 times daily if patient becomes hypotensive during dialysis. Per CCM. Decrease in seroqoul but will increase if needed 04/26: Patient agreeable to PEG, GI consulted for placement. Femoral line removed 04/27: No acute events reported overnight, patient has been cardiac cleared for PEG tube placement. Possible PEG in the a.m. This afternoon attempted to place IJ CVL which was unsuccessful and Dr. Mcguire ultimately placed femoral CVL for the initiation of Levophed. HD scheduled for today. 04/28: Patient initially started on Levophed yesterday and she received a femoral CVL. 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 Vascular surgery was consulted. Patient also noted to be anemic and received 1 unit PRBC today. 04/29: Possible hemodialysis today, patient was able to be weaned off of Levophed today. Hemoglobin responded well to 1 unit PRBC. Awaiting trach/PEG placement. Patient will not need to be started on heparin drip per vascular cano rgery. No acute events reported overnight. 04/30: HD yesterday without removal of fluids, patient needs NT suctioning. Updated son today. 05/01: Patient with increase mucous production and is unable to fully clear her airway, Rhonchi auscultated throughout her lungs this am. SPO2 at 90 to 94% on 3 L NC. D/W CCM, patient is high risk for aspiration will placed patient on heated HF at 40L for now instead of Bipap. Nasal bleeding also noted, mostly due to NT suctioning. Refrain from NT suctioning for now due to bleeding, only oral suctioning. PO seroquel held this amP atient is AAO, appropriate, and following commands. Levophed gtt weaned off, patient remains hemodynamically stable. Will discuss Nephro for possible fluid removal tonight or early tomorrow. Very low threshold for intubation. Patient's condition and plan of care, including possible intubation, thoroughly discussed with patient's son-Raymundo Randolph at . Patient's son verbalized understanding of the info provided and agreed with intubation if necessary. 05/02: Remains on HHFL at 40% and 40L, mentation is unchanged. HD at the bedside, plan for possible UF with fluid removal today. Continue O2 supplementation and wean as tolerated, for SPO2 above 92%. Repeat CXR in the am. Patient vital signs remains stable, still off pressors. Plan for possible PEG-tube placement by GI tomorrow, NPO after MN. Possible fistulogram for RIJ thrombus on or sunday per Vascular Surgery. 05/03: Complete white-out of right side from this am CXR, probable mucus plug. S/p intubation and bronch at the bedside by CCM. Patient remains sedated and required short duration of Levophed gtt during the procedure. Pressor was wean off, VSS. Plan for CPT and mucomyst Q12hrs. Repeat CXR in the am. PEG-Tube placement postpone for possibly tomorrow if patient remains stable. Possible fistulogram for RIJ thrombus on or Sunday per Vascular Surgery. 05/04: Remains on the vent, easily arousable. High fevers overnight with spike in leukocytosis, now on 2 pressors. CCM d/w ID, recommendations to repeat blood cultures and empiric IV abx- Cefepine and Vanco. low H&H this am, no s/s of any active bleeding, 1units of PRBCs during iHD today. S/p PEG-tube placement at this bedside this am by GI, no complications noted. Resume TF once clear by GI. 05/05: Remains on low vent setting. This am CXR with increase opacities on the right side again today, s/p therapeutic bronch at the bedside today by CCM. Repeat CXR in the am. Remains with low grade fevers and on 2 pressors. Bronchial wash with Staph A. and blood cultures pending. Continue current IV Abx per ID. 05/06: Stable on the vent this am. Only on low dose pressors, MAP above 65. CXR with some improvement, peep dropped to 8 per CCM. Continue CPT and Mucomyst TID. If patient remains stable overnight, possible PSV trial in the am. Fevers and leukocytosis improved. Continue current IV Abx per ID. Continue iHD per Nephro 05/07: Remains stable on the vent, afebrile and off pressors this am VSS. This am CXR reviewed, increased opacities on the right side. Patient remains on low vent settings. Further management per CCM, continue CPT and Mucomyst TID. Bronch wash with MRSA, blood cultures pending. Continue current IV Abx per ID. 05/08: We will replete potassium, CCM would like a CTA chest but evaluate atelectasis/consolidation/effusions. LTAC evaluation 05/09: HD today, CTA chest completed. CPAP yesterday but rested on AC overnight. 05/10: Patient discharge will be delayed till tomorrow due to bed unavailability at LTAC facility, no acute distress overnight. Patient placed on PSV but failed. Hospitalist Physical - Constitutional Vitals: Temp Pulse Resp BP Pulse Ox 99 F 100 H 14 117/41 100 05/10/22 12:00 05/10/22 14:32 05/10/22 14:32 05/10/22 14:00 05/10/22 14:20 General appearance: Present: no acute distress, other (intubated) - EENT Eyes: Present: PERRL, EOM intact ENT: dentition normal - Neck Neck: Present: normal ROM - Respiratory Respiratory effort: normal Respiratory: bilateral: diminished, rhonchi - Cardiovascular Rhythm: regular Heart Sounds: Present: S1 & S2. Absent: systolic murmur, diastolic murmur - Extremities Extremities: no ischemia, pulses intact, pulses symmetrical, normal temperature, normal color Extremity abnormal: edema Peripheral Pulses: within normal limits - Abdominal General gastrointestinal: soft, non-tender, non-distended, normal bowel sounds - Integumentary Integumentary: Present: warm, dry - Psychiatric Psychiatric: cooperative - Neurologic Neurologic: moves all extremities - Allied Health Allied health notes reviewed: nursing, RT, social work HEART Score - HEART Score Troponin: Troponin T 0.415 ng/mL (0.00-0.029) H* 04/19/22 04:53 Results - Labs CBC & Chem 7: 05/09/22 04:25 05/09/22 04:25 Labs: Laboratory Last Values WBC 6.3 K/mm3 (4.5-11.0) 05/09/22 04:25 RBC 2.86 M/mm3 (3.65-5.03) L 05/09/22 04:25 Hgb 8.0 gm/dl (10.1-14.3) L 05/09/22 04:25 Hct 25.7 % (30.3-42.9) L 05/09/22 04:25 MCV 90 fl (79-97) 05/09/22 04:25 MCH 28 pg (28-32) 05/09/22 04:25 MCHC 31 % (30-34) 05/09/22 04:25 RDW 16.2 % (13.2-15.2) H 05/09/22 04:25 Plt Count 101 K/mm3 (140-440) L 05/09/22 04:25 Lymph % (Auto) 26.7 % (13.4-35.0) 04/20/22 05:30 Rabun % (Auto) 15.2 % (0.0-7.3) H 04/20/22 05:30 Eos % (Auto) 3.8 % (0.0-4.3) 04/20/22 05:30 Baso % (Auto) 1.2 % (0.0-1.8) 04/20/22 05:30 Lymph # (Auto) 1.1 K/mm3 (1.2-5.4) L 04/20/22 05:30 Rabun # (Auto) 0.6 K/mm3 (0.0-0.8) 04/20/22 05:30 Eos # (Auto) 0.2 K/mm3 (0.0-0.4) 04/20/22 05:30 Baso # (Auto) 0.0 K/mm3 (0.0-0.1) 04/20/22 05:30 Add Manual Diff Complete 05/05/22 04:20 Total Counted 100 05/05/22 04:20 Seg Neutrophils % 53.1 % (40.0-70.0) 04/20/22 05:30 Seg Neuts % (Manual) 86.0 % (40.0-70.0) H 05/05/22 04:20 Band Neutrophils % 3.0 % 05/05/22 04:20 Lymphocytes % (Manual) 4.0 % (13.4-35.0) L 05/05/22 04:20 Reactive Lymphs % (Man) 0 % 05/05/22 04:20 Monocytes % (Manual) 6.0 % (0.0-7.3) 05/05/22 04:20 Eosinophils % (Manual) 1.0 % (0.0-4.3) 05/05/22 04:20 Basophils % (Manual) 0 % (0.0-1.8) 05/05/22 04:20 Metamyelocytes % 0 % 05/05/22 04:20 Myelocytes % 0 % 05/05/22 04:20 Promyelocytes % 0 % 05/05/22 04:20 Blast Cells % 0 % 05/05/22 04:20 Nucleated RBC % 1.0 % (0.0-0.9) H 05/05/22 04:20 Seg Neutrophils # 2.2 K/mm3 (1.8-7.7) 04/20/22 05:30 Seg Neutrophils # Man 11.0 K/mm3 (1.8-7.7) H 05/05/22 04:20 Band Neutrophils # 0.4 K/mm3 05/05/22 04:20 Lymphocytes # (Manual) 0.5 K/mm3 (1.2-5.4) L 05/05/22 04:20 Abs React Lymphs (Man) 0.0 K/mm3 05/05/22 04:20 Monocytes # (Manual) 0.8 K/mm3 (0.0-0.8) 05/05/22 04:20 Eosinophils # (Manual) 0.1 K/mm3 (0.0-0.4) 05/05/22 04:20 Basophils # (Manual) 0.0 K/mm3 (0.0-0.1) 05/05/22 04:20 Metamyelocytes # 0.0 K/mm3 05/05/22 04:20 Myelocytes # 0.0 K/mm3 05/05/22 04:20 Promyelocytes # 0.0 K/mm3 05/05/22 04:20 Blast Cells # 0.0 K/mm3 05/05/22 04:20 WBC Morphology Not Reportable 05/05/22 04:20 Hypersegmented Neuts Not Reportable 05/05/22 04:20 Hyposegmented Neuts Not Reportable 05/05/22 04:20 Hypogranular Neuts Not Reportable 05/05/22 04:20 Smudge Cells Not Reportable 05/05/22 04:20 Toxic Granulation Not Reportable 05/05/22 04:20 Toxic Vacuolation Not Reportable 05/05/22 04:20 Dohle Bodies Not Reportable 05/05/22 04:20 Pelger-Huet Anomaly Not Reportable 05/05/22 04:20 Ubaldo Rods Not Reportable 05/05/22 04:20 Platelet Estimate Consistent w auto 05/05/22 04:20 Clumped Platelets Not Reportable 05/05/22 04:20 Plt Clumps, EDTA Not Reportable 05/05/22 04:20 Large Platelets Not Reportable 05/05/22 04:20 Giant Platelets Not Reportable 05/05/22 04:20 Platelet Satelliting Not Reportable 05/05/22 04:20 Plt Morphology Comment Not Reportable 05/05/22 04:20 RBC Morphology Not Reportable 05/05/22 04:20 Dimorphic RBCs Not Reportable 05/05/22 04:20 Polychromasia Not Reportable 05/05/22 04:20 Hypochromasia 2+ 05/05/22 04:20 Poikilocytosis Not Reportable 05/05/22 04:20 Anisocytosis 1+ 05/05/22 04:20 Microcytosis Not Reportable 05/05/22 04:20 Macrocytosis Not Reportable 05/05/22 04:20 Spherocytes Not Reportable 05/05/22 04:20 Pappenheimer Bodies Not Reportable 05/05/22 04:20 Sickle Cells Not Reportable 05/05/22 04:20 Target Cells Not Reportable 05/05/22 04:20 Tear Drop Cells Not Reportable 05/05/22 04:20 Ovalocytes Not Reportable 05/05/22 04:20 Helmet Cells Not Reportable 05/05/22 04:20 Rangel-Tracy Bodies Not Reportable 05/05/22 04:20 [place] Rings Not Reportable 05/05/22 04:20 [place] Cells Not Reportable 05/05/22 04:20 Bite Cells Not Reportable 05/05/22 04:20 Crenated Cell Not Reportable 05/05/22 04:20 Elliptocytes Not Reportable 05/05/22 04:20 Acanthocytes (Spur) Not Reportable 05/05/22 04:20 Rouleaux Not Reportable 05/05/22 04:20 Hemoglobin C Crystals Not Reportable 05/05/22 04:20 Schistocytes Not Reportable 05/05/22 04:20 Malaria parasites Not Reportable 05/05/22 04:20 Torrey Bodies Not Reportable 05/05/22 04:20 Hem Pathologist Commnt No 05/05/22 04:20 PT 17.6 Sec. (12.2-14.9) H 05/04/22 04:26 INR 1.29 (0.87-1.13) H 05/04/22 04:26 APTT 39.4 Sec. (24.2-36.6) H 05/03/22 04:24 Heparin Anti-Xa Level < 0.10 U.I./ml (0.3-0.7) L 04/24/22 10:20 ABG pH 7.421 pH Units (7.350-7.450) 05/08/22 21:00 ABG pCO2 42.4 mm Hg 05/08/22 21:00 ABG pO2 68.8 mm Hg (80.0-90.0) L 05/08/22 21:00 ABG HCO3 27.0 mmol/L (20.0-26.0) H 05/08/22 21:00 ABG O2 Saturation 95.7 % (95.0-99.0) 05/08/22 21:00 ABG O2 Content 11.1 (0.0-44) 05/08/22 21:00 ABG Base Excess 2.3 mmol/L (-2.0-3.0) 05/08/22 21:00 ABG Hemoglobin 8.4 gm/dl (12.0-16.0) L 05/08/22 21:00 ABG Carboxyhemoglobin 1.8 % (0.0-5.0) 05/08/22 21:00 ABG Methemoglobin 0.5 % (0.0-1.5) 05/08/22 21:00 Oxyhemoglobin 93.4 % (95.0-99.0) L 05/08/22 21:00 FiO2 30 % 05/08/22 21:00 Sodium 132 mmol/L (137-145) L 05/09/22 04:25 Potassium 3.5 mmol/L (3.6-5.0) L 05/09/22 04:25 Chloride 93.7 mmol/L (98-107) L 05/09/22 04:25 Carbon Dioxide 25 mmol/L (22-30) 05/09/22 04:25 Anion Gap 17 mmol/L 05/09/22 04:25 BUN 42 mg/dL (7-17) H 05/09/22 04:25 Creatinine 3.0 mg/dL (0.6-1.2) H 05/09/22 04:25 Estimated GFR 19 ml/min 05/09/22 04:25 BUN/Creatinine Ratio 14 % 05/09/22 04:25 Glucose 145 mg/dL (65-100) H 05/09/22 04:25 POC Glucose 130 mg/dL (70-105) H 05/10/22 16:37 Lactic Acid 1.60 mmol/L (0.7-2.0) 04/19/22 07:14 Calcium 8.7 mg/dL (8.4-10.2) 05/09/22 04:25 Phosphorus 3.00 mg/dL (2.5-4.5) D 05/09/22 04:25 Magnesium 1.80 mg/dL (1.7-2.3) 05/09/22 04:25 Total Bilirubin 0.30 mg/dL (0.1-1.2) 04/20/22 05:30 AST 11 units/L (5-40) 04/20/22 05:30 ALT 7 units/L (7-56) 04/20/22 05:30 Alkaline Phosphatase 101 units/L (35-129) 04/20/22 05:30 Ammonia 25.0 umol/L (25-60) 04/19/22 04:53 Lactate Dehydrogenase 142 units/L (91-180) 05/09/22 04:25 Troponin T 0.415 ng/mL (0.00-0.029) H* 04/19/22 04:53 Total Protein 6.4 g/dL (6.3-8.2) 04/20/22 05:30 Albumin 2.4 g/dL (3.9-5) L 04/20/22 05:30 Albumin/Globulin Ratio 0.6 % 04/20/22 05:30 Procalcitonin 42.42 ng/mL (<0.15) 05/05/22 04:20 TSH 1.700 mlU/mL (0.270-4.200) 04/19/22 04:53 Free T4 0.28 ng/dL (0.76-1.46) L 04/19/22 04:53 Total Cortisol 24.4 mcg/dL () 04/27/22 04:45 Fluid Type Pleural 05/09/22 Unknown Fluid Color Yellow 05/09/22 Unknown Fluid Appearance Clear 05/09/22 Unknown Fluid WBC 21 /mm3 05/09/22 Unknown Fluid RBC 12 /mm3 05/09/22 Unknown Fluid Seg Neutrophils 60.0 % 05/09/22 Unknown Fluid Lymphocytes 11.0 % 05/09/22 Unknown Fluid Monocytes 29.0 % 05/09/22 Unknown Random Vancomycin 9.6 ug/mL (0-40.0) 05/07/22 04:15 Coronavirus (PCR) Negative (Negative) 05/03/22 11:30 Hepatitis A IgM Ab Non-reactive (NonReactive) 04/19/22 04:53 Hep Bs Antigen Non-reactive (Negative) 04/19/22 04:53 Hep B Core IgM Ab Non-reactive (NonReactive) 04/19/22 04:53 Hepatitis C Antibody Non-reactive (NonReactive) 04/19/22 04:53 Blood Type A POSITIVE 05/04/22 05:30 Antibody Screen Negative 05/04/22 05:30 Crossmatch See Detail 05/04/22 05:30 Microbiology: Microbiology 05/04/22 16:30 Peripheral/Venous Blood Culture - Final NO GROWTH AFTER 5 DAYS Cleary/IV: Voiding Method Diaper Active Medications - Current Medications Current Medications: Generic Name Dose Route Start Last Admin Trade Name Freq PRN Reason Stop Dose Admin Acetaminophen 650 mg 04/22/22 20:12 05/03/22 23:41 Acetaminophen 325 Mg/10.15 Ml Oral Liqd Unit Dose PO 650 mg Q6H PRN Administration Pain MILD(1-3)/Fever >100.5/DRAKE Albumin Human 25 gm 04/21/22 13:00 04/22/22 16:31 Albumin Human 25% (25 Gm/100 Ml) Inj IV 25 gm BIANCA PRN Administration Hypotension Albuterol 2.5 mg 04/21/22 08:30 04/24/22 16:51 Albuterol 2.5 Mg/3 Ml Nebu IH 2.5 mg Q3HRT PRN Administration Shortness Of Breath Albuterol/Ipratropium 1 ampul 04/21/22 14:00 05/10/22 14:32 Ipratropium/Albuterol Sulfate 3 Ml Ampul.Neb IH 1 ampul TIDRT CONNOR Administration Docusate Sodium 100 mg 05/01/22 22:00 05/10/22 09:44 Docusate Sodium 100 Mg/10 Ml Oral Liqd FEEDTUBE Not Given BID CONNOR Epoetin Lb-epbx 20,000 unit 04/23/22 12:00 05/09/22 14:58 Epoetin Lb-Epbx 20,000 Unit/1 Ml Vial IV 20,000 unit BIANCA PRN Administration HEMODIALYSIS Fentanyl 50 mcg 05/03/22 10:29 05/05/22 12:23 Fentanyl 100 Mcg/2 Ml Inj IV 25 mcg Q10MIN PRN Administration ANALGESIA Sodium Chloride 100 mls @ 999 mls/hr 04/22/22 09:12 Nacl 0.9% IV BIANCA PRN Hypotension Fentanyl Citrate 2,000 mcg in 100 mls @ 2.722 mls/hr 05/03/22 11:00 Fentanyl Drip Premix IV TITR CONNOR Protocol 1 MCG/KG/HR NORepinephrine/NS 8 MG-250 ML 8 mg in 250 mls @ 3.75 mls/hr 05/03/22 13:15 05/06/22 10:06 Norepinephrine/Ns 8 Mg-250 Ml (Double Conc) IV 0 mcg/min TITRATE CONNOR 0 mls/hr Titration Protocol 2 MCG/MIN Vasopressin 20 unit/ Sodium 101 mls @ 9.09 mls/hr 05/04/22 00:30 05/06/22 11:21 Chloride IV 0 units/min TITR CONNOR 0 mls/hr Infusion 0.03 UNITS/MIN Vancomycin HCl 750 mg/ Sodium 265 mls @ 166.667 mls/hr 05/09/22 22:00 05/09/22 21:27 Chloride IV 166.667 mls/hr TuThSa CONNOR Administration Lansoprazole 30 mg 04/23/22 10:00 05/10/22 09:40 Lansoprazole 30 Mg Solutab FEEDTUBE 30 mg QDAY CONNOR Administration Lorazepam 0.5 mg 04/25/22 09:59 Lorazepam 0.5 Mg Tab FEEDTUBE QDAY PRN Anxiety Memantine 5 mg 04/25/22 10:00 05/10/22 09:41 Memantine 5 Mg Tab FEEDTUBE 5 mg BID CONNOR Administration Metoclopramide HCl 5 mg 04/19/22 09:55 Metoclopramide 10 Mg/2 Ml Inj IV Q6H PRN Nausea And Vomiting Midodrine 20 mg 04/26/22 14:00 05/10/22 13:12 Midodrine 10 Mg Tab FEEDTUBE 20 mg TID CONNOR Administration Naloxone HCl 0.1 mg 04/19/22 09:55 Naloxone 0.4 Mg/1 Ml Inj IV Q2MIN PRN Res Rate </= 8 or 02 SAT < 92% Polyethylene Glycol 17 gm 05/03/22 10:00 05/10/22 09:44 Polyethylene Glycol 3350 17 Gm Powder FEEDTUBE Not Given QDAY CONNOR Risperidone 0.5 mg 04/25/22 11:00 05/10/22 09:41 Risperidone 1 Mg Tab FEEDTUBE 0.5 mg BID CONNOR Administration Scopolamine 1 each 05/02/22 10:00 05/08/22 11:01 Scopolamine Transdermal Patch 72 Hr TD 1 each Q3D CONNOR Administration Senna 17.2 mg 04/23/22 10:00 05/10/22 13:12 Sennosides 8.6 Mg Tab FEEDTUBE Not Given BID CONNOR Sodium Chloride 10 ml 04/19/22 12:00 05/10/22 09:46 Sodium Chloride 0.9% 10 Ml Flush Syringe IV 10 ml BID CONNOR Administration Sodium Chloride 10 ml 04/19/22 11:19 Sodium Chloride 0.9% 10 Ml Flush Syringe IV PRN PRN LINE FLUSH Valproic Acid 750 mg 04/22/22 22:00 05/10/22 09:43 Valproic Acid 250 Mg/5 Ml Oral Liqd FEEDTUBE 750 mg BID CONNOR Administration Nutrition/Malnutrition Assess - Dietary Evaluation Nutrition/Malnutrition Findings: Nutrition Notes Start: 04/19/22 17:39 Freq: Status: Active Protocol: Document 05/05/22 14:44 [facility] (Rec: 05/05/22 14:55 [facility] [id number]) Nutrition Notes Initial or Follow up Reassessment Current Diagnosis CKD (stage V CKD),Sepsis, Respiratory Failure Other Pertinent Diagnosis Neurogenic dysphagia, metabolic encephalopathy, vascular dementia Current Diet No diet order in chart Labs/Tests Na 130 K 3.3 BUN 24 Cr 2.3 BG 163 Phos 1.5 Pertinent Medications Colace, Senokot, Miralax, Levophed gtt, Vasopressin gtt Height 5 ft 2 in Weight 54.43 kg [place] Body Weight (kg) 50.00 BMI 21.9 Weight Status Appropriate Subjective/Other Information PEG placed yesterday. Pt remains on vent and HD support . Observed Nepro infusing at 30ml/hr. No BM documented today. Bronchoscopy performed today. Percent of energy/protein needs met: 104% energy 90% pro Burn Absent Trauma Absent #1 Nutrition Diagnosis Inadequate oral intake, Swallowing difficulty Diagnosis Progress(for reassessment Continues documentation) Is patient on ventilator? Yes Is Patient Ambulatory and/or Out of Bed No [facility] 0521.84 Calculation Used for Recommendations [facility] Additional Notes Pro needs >1.2g/kg: >65g/day Fluid needs 1-1.5L/day Nutrition Intervention Nutrition Support: Continue Nepro at 30ml/hr with 130ml water flush q4h. Kcal 1,296 Protein (gm) 58 Carbohydrates (gm) 116 Fat (gm) 69 Fluid (mL) 523 Fiber (gm) 9 Goal #1 TF tolerance Goal #2 TF to meet at least 75% energy and pro needs Follow-Up By: 05/12/22 Additional Comments F/U: stable TF, vent status, wt, BM <AMAURY KIM - Last Filed: 05/12/22 14:30> History Interval history: I saw and evaluated the patient. Discussed with the nurse practitioner and agree with their findings and plan as documented in this note. Hospitalist Physical - Constitutional Vitals: Temp Pulse Resp BP Pulse Ox 99.2 F 85 14 123/52 100 05/12/22 11:38 05/12/22 14:01 05/12/22 14:01 05/12/22 14:01 05/12/22 14:01 HEART Score - HEART Score Troponin: Troponin T 0.415 ng/mL (0.00-0.029) H* 04/19/22 04:53 Results - Labs CBC & Chem 7: 05/12/22 04:11 05/12/22 06:00 Labs: Laboratory Last Values WBC 18.0 K/mm3 (4.5-11.0) H 05/12/22 04:11 RBC 2.56 M/mm3 (3.65-5.03) L 05/12/22 04:11 Hgb 7.2 gm/dl (10.1-14.3) L 05/12/22 04:11 Hct 23.2 % (30.3-42.9) L 05/12/22 04:11 MCV 90 fl (79-97) 05/12/22 04:11 MCH 28 pg (28-32) 05/12/22 04:11 MCHC 31 % (30-34) 05/12/22 04:11 RDW 16.4 % (13.2-15.2) H 05/12/22 04:11 Plt Count 196 K/mm3 (140-440) 05/12/22 04:11 Lymph % (Auto) 7.8 % (13.4-35.0) L 05/12/22 04:11 Rabun % (Auto) 14.2 % (0.0-7.3) H 05/12/22 04:11 Eos % (Auto) 0.5 % (0.0-4.3) 05/12/22 04:11 Baso % (Auto) 0.4 % (0.0-1.8) 05/12/22 04:11 Lymph # (Auto) 1.4 K/mm3 (1.2-5.4) 05/12/22 04:11 Rabun # (Auto) 2.5 K/mm3 (0.0-0.8) H 05/12/22 04:11 Eos # (Auto) 0.1 K/mm3 (0.0-0.4) 05/12/22 04:11 Baso # (Auto) 0.1 K/mm3 (0.0-0.1) 05/12/22 04:11 Add Manual Diff Complete 05/05/22 04:20 Total Counted 100 05/05/22 04:20 Seg Neutrophils % 77.1 % (40.0-70.0) H 05/12/22 04:11 Seg Neuts % (Manual) 86.0 % (40.0-70.0) H 05/05/22 04:20 Band Neutrophils % 3.0 % 05/05/22 04:20 Lymphocytes % (Manual) 4.0 % (13.4-35.0) L 05/05/22 04:20 Reactive Lymphs % (Man) 0 % 05/05/22 04:20 Monocytes % (Manual) 6.0 % (0.0-7.3) 05/05/22 04:20 Eosinophils % (Manual) 1.0 % (0.0-4.3) 05/05/22 04:20 Basophils % (Manual) 0 % (0.0-1.8) 05/05/22 04:20 Metamyelocytes % 0 % 05/05/22 04:20 Myelocytes % 0 % 08/19/22 04:20 Promyelocytes % 0 % 05/05/22 04:20 Blast Cells % 0 % 05/05/22 04:20 Nucleated RBC % 1.0 % (0.0-0.9) H 05/05/22 04:20 Seg Neutrophils # 13.9 K/mm3 (1.8-7.7) H 05/12/22 04:11 Seg Neutrophils # Man 11.0 K/mm3 (1.8-7.7) H 05/05/22 04:20 Band Neutrophils # 0.4 K/mm3 05/05/22 04:20 Lymphocytes # (Manual) 0.5 K/mm3 (1.2-5.4) L 05/05/22 04:20 Abs React Lymphs (Man) 0.0 K/mm3 05/05/22 04:20 Monocytes # (Manual) 0.8 K/mm3 (0.0-0.8) 05/05/22 04:20 Eosinophils # (Manual) 0.1 K/mm3 (0.0-0.4) 05/05/22 04:20 Basophils # (Manual) 0.0 K/mm3 (0.0-0.1) 05/05/22 04:20 Metamyelocytes # 0.0 K/mm3 05/05/22 04:20 Myelocytes # 0.0 K/mm3 05/05/22 04:20 Promyelocytes # 0.0 K/mm3 05/05/22 04:20 Blast Cells # 0.0 K/mm3 05/05/22 04:20 WBC Morphology Not Reportable 05/05/22 04:20 Hypersegmented Neuts Not Reportable 05/05/22 04:20 Hyposegmented Neuts Not Reportable 05/05/22 04:20 Hypogranular Neuts Not Reportable 05/05/22 04:20 Smudge Cells Not Reportable 05/05/22 04:20 Toxic Granulation Not Reportable 05/05/22 04:20 Toxic Vacuolation Not Reportable 05/05/22 04:20 Dohle Bodies Not Reportable 05/05/22 04:20 Pelger-Huet Anomaly Not Reportable 05/05/22 04:20 Ubaldo Rods Not Reportable 05/05/22 04:20 Platelet Estimate Consistent w auto 05/05/22 04:20 Clumped Platelets Not Reportable 05/05/22 04:20 Plt Clumps, EDTA Not Reportable 05/05/22 04:20 Large Platelets Not Reportable 05/05/22 04:20 Giant Platelets Not Reportable 05/05/22 04:20 Platelet Satelliting Not Reportable 05/05/22 04:20 Plt Morphology Comment Not Reportable 05/05/22 04:20 RBC Morphology Not Reportable 05/05/22 04:20 Dimorphic RBCs Not Reportable 05/05/22 04:20 Polychromasia Not Reportable 05/05/22 04:20 Hypochromasia 2+ 05/05/22 04:20 Poikilocytosis Not Reportable 05/05/22 04:20 Anisocytosis 1+ 05/05/22 04:20 Microcytosis Not Reportable 05/05/22 04:20 Macrocytosis Not Reportable 05/05/22 04:20 Spherocytes Not Reportable 05/05/22 04:20 Pappenheimer Bodies Not Reportable 05/05/22 04:20 Sickle Cells Not Reportable 05/05/22 04:20 Target Cells Not Reportable 05/05/22 04:20 Tear Drop Cells Not Reportable 05/05/22 04:20 Ovalocytes Not Reportable 05/05/22 04:20 Helmet Cells Not Reportable 05/05/22 04:20 Rangel-Tracy Bodies Not Reportable 05/05/22 04:20 [place] Rings Not Reportable 05/05/22 04:20 [place] Cells Not Reportable 05/05/22 04:20 Bite Cells Not Reportable 05/05/22 04:20 Crenated Cell Not Reportable 05/05/22 04:20 Elliptocytes Not Reportable 05/05/22 04:20 Acanthocytes (Spur) Not Reportable 05/05/22 04:20 Rouleaux Not Reportable 05/05/22 04:20 Hemoglobin C Crystals Not Reportable 05/05/22 04:20 Schistocytes Not Reportable 05/05/22 04:20 Malaria parasites Not Reportable 05/05/22 04:20 Torrey Bodies Not Reportable 05/05/22 04:20 Hem Pathologist Commnt No 05/05/22 04:20 PT 15.4 Sec. (12.2-14.9) H 05/12/22 04:11 INR 1.09 (0.87-1.13) 05/12/22 04:11 APTT 39.4 Sec. (24.2-36.6) H 05/03/22 04:24 Heparin Anti-Xa Level < 0.10 U.I./ml (0.3-0.7) L 04/24/22 10:20 ABG pH 7.421 pH Units (7.350-7.450) 05/08/22 21:00 ABG pCO2 42.4 mm Hg 05/08/22 21:00 ABG pO2 68.8 mm Hg (80.0-90.0) L 05/08/22 21:00 ABG HCO3 27.0 mmol/L (20.0-26.0) H 05/08/22 21:00 ABG O2 Saturation 95.7 % (95.0-99.0) 05/08/22 21:00 ABG O2 Content 11.1 (0.0-44) 05/08/22 21:00 ABG Base Excess 2.3 mmol/L (-2.0-3.0) 05/08/22 21:00 ABG Hemoglobin 8.4 gm/dl (12.0-16.0) L 05/08/22 21:00 ABG Carboxyhemoglobin 1.8 % (0.0-5.0) 05/08/22 21:00 ABG Methemoglobin 0.5 % (0.0-1.5) 05/08/22 21:00 Oxyhemoglobin 93.4 % (95.0-99.0) L 05/08/22 21:00 FiO2 30 % 05/08/22 21:00 Sodium 133 mmol/L (137-145) L 05/12/22 06:00 Potassium 4.2 mmol/L (3.6-5.0) 05/12/22 06:00 Chloride 94.1 mmol/L (98-107) L 05/12/22 06:00 Carbon Dioxide 27 mmol/L (22-30) 05/12/22 06:00 Anion Gap 16 mmol/L 05/12/22 06:00 BUN 29 mg/dL (7-17) H 05/12/22 06:00 Creatinine 2.4 mg/dL (0.6-1.2) H 05/12/22 06:00 Estimated GFR 24 ml/min 05/12/22 06:00 BUN/Creatinine Ratio 12 % 05/12/22 06:00 Glucose 145 mg/dL (65-100) H 05/12/22 06:00 POC Glucose 122 mg/dL (70-105) H 05/12/22 05:03 Lactic Acid 1.60 mmol/L (0.7-2.0) 04/19/22 07:14 Calcium 8.7 mg/dL (8.4-10.2) 05/12/22 06:00 Phosphorus 3.00 mg/dL (2.5-4.5) D 05/09/22 04:25 Magnesium 1.80 mg/dL (1.7-2.3) 05/09/22 04:25 Total Bilirubin 0.30 mg/dL (0.1-1.2) 05/12/22 06:00 AST 24 units/L (5-40) 05/12/22 06:00 ALT 7 units/L (7-56) 05/12/22 06:00 Alkaline Phosphatase 332 units/L (35-129) H 05/12/22 06:00 Ammonia 25.0 umol/L (25-60) 04/19/22 04:53 Lactate Dehydrogenase 142 units/L (91-180) 05/09/22 04:25 Troponin T 0.415 ng/mL (0.00-0.029) H* 04/19/22 04:53 Total Protein 4.8 g/dL (6.3-8.2) L 05/12/22 06:00 Albumin 2.0 g/dL (3.9-5) L 05/12/22 06:00 Albumin/Globulin Ratio 0.7 % 05/12/22 06:00 Procalcitonin 42.42 ng/mL (<0.15) 05/05/22 04:20 TSH 1.700 mlU/mL (0.270-4.200) 04/19/22 04:53 Free T4 0.28 ng/dL (0.76-1.46) L 04/19/22 04:53 Total Cortisol 24.4 mcg/dL () 04/27/22 04:45 Fluid Type Pleural 05/09/22 Unknown Fluid Color Yellow 05/09/22 Unknown Fluid Appearance Clear 05/09/22 Unknown Fluid WBC 21 /mm3 05/09/22 Unknown Fluid RBC 12 /mm3 05/09/22 Unknown Fluid Seg Neutrophils 60.0 % 05/09/22 Unknown Fluid Lymphocytes 11.0 % 05/09/22 Unknown Fluid Monocytes 29.0 % 05/09/22 Unknown Random Vancomycin 20.0 ug/mL (0-40.0) 05/11/22 03:56 Coronavirus (PCR) Negative (Negative) 05/03/22 11:30 Hepatitis A IgM Ab Non-reactive (NonReactive) 04/19/22 04:53 Hep Bs Antigen Non-reactive (Negative) 04/19/22 04:53 Hep B Core IgM Ab Non-reactive (NonReactive) 04/19/22 04:53 Hepatitis C Antibody Non-reactive (NonReactive) 04/19/22 04:53 Blood Type A POSITIVE 05/12/22 06:07 Antibody Screen Negative 05/12/22 06:07 Crossmatch See Detail 05/12/22 06:07 Microbiology: Microbiology 05/09/22 Unknown Other (Please Specify:) - Pleura Body Fluid Culture - Preliminary Cleary/IV: Voiding Method Diaper Active Medications - Current Medications Current Medications: Generic Name Dose Route Start Last Admin Trade Name Freq PRN Reason Stop Dose Admin Acetaminophen 650 mg 04/22/22 20:12 05/12/22 09:39 Acetaminophen 325 Mg/10.15 Ml Oral Liqd Unit Dose PO 650 mg Q6H PRN Administration Pain MILD(1-3)/Fever >100.5/DRAKE Albumin Human 25 gm 04/21/22 13:00 04/22/22 16:31 Albumin Human 25% (25 Gm/100 Ml) Inj IV 25 gm BIANCA PRN Administration Hypotension Albuterol 2.5 mg 04/21/22 08:30 04/24/22 16:51 Albuterol 2.5 Mg/3 Ml Nebu IH 2.5 mg Q3HRT PRN Administration Shortness Of Breath Albuterol/Ipratropium 1 ampul 04/21/22 14:00 05/12/22 14:25 Ipratropium/Albuterol Sulfate 3 Ml Ampul.Neb IH 1 ampul TIDRT CONNOR Administration Docusate Sodium 100 mg 05/01/22 22:00 05/12/22 09:25 Docusate Sodium 100 Mg/10 Ml Oral Liqd FEEDTUBE Not Given BID CONNOR Epoetin Lb-epbx 20,000 unit 04/23/22 12:00 05/09/22 14:58 Epoetin Lb-Epbx 20,000 Unit/1 Ml Vial IV 20,000 unit BIANCA PRN Administration HEMODIALYSIS Fentanyl 50 mcg 05/03/22 10:29 05/05/22 12:23 Fentanyl 100 Mcg/2 Ml Inj IV 25 mcg Q10MIN PRN Administration ANALGESIA Sodium Chloride 100 mls @ 999 mls/hr 04/22/22 09:12 Nacl 0.9% IV BIANCA PRN Hypotension Fentanyl Citrate 2,000 mcg in 100 mls @ 2.722 mls/hr 05/03/22 11:00 Fentanyl Drip Premix IV TITR CONNOR Protocol 1 MCG/KG/HR Vasopressin 20 unit/ Sodium 101 mls @ 9.09 mls/hr 05/04/22 00:30 05/06/22 11:21 Chloride IV 0 units/min TITR CONNOR 0 mls/hr Infusion 0.03 UNITS/MIN Vancomycin HCl 750 mg/ Sodium 265 mls @ 166.667 mls/hr 05/09/22 22:00 05/12/22 00:34 Chloride IV 05/13/22 21:59 166.667 mls/hr TuThSa CONNOR Administration NORepinephrine/NS 8 MG-250 ML 8 mg in 250 mls @ 3.75 mls/hr 05/11/22 21:23 05/12/22 12:21 Norepinephrine/Ns 8 Mg-250 Ml (Double Conc) IV 10 mcg/min TITRATE CONNOR 18.75 mls/hr Administration Protocol 2 MCG/MIN Cefepime HCl 1 gm in 100 mls @ 200 mls/hr 05/12/22 18:00 Cefepime/Ns 1 Gm/100 Ml IV 05/14/22 18:29 Q24H CONNOR Protocol Lansoprazole 30 mg 04/23/22 10:00 05/12/22 09:35 Lansoprazole 30 Mg Solutab FEEDTUBE 30 mg QDAY CONNOR Administration Lorazepam 0.5 mg 04/25/22 09:59 Lorazepam 0.5 Mg Tab FEEDTUBE QDAY PRN Anxiety Memantine 5 mg 04/25/22 10:00 05/12/22 09:36 Memantine 5 Mg Tab FEEDTUBE 5 mg BID CONNOR Administration Metoclopramide HCl 5 mg 04/19/22 09:55 Metoclopramide 10 Mg/2 Ml Inj IV Q6H PRN Nausea And Vomiting Midodrine 20 mg 04/26/22 14:00 05/12/22 13:46 Midodrine 10 Mg Tab FEEDTUBE 20 mg TID CONNOR Administration Naloxone HCl 0.1 mg 04/19/22 09:55 Naloxone 0.4 Mg/1 Ml Inj IV Q2MIN PRN Res Rate </= 8 or 02 SAT < 92% Polyethylene Glycol 17 gm 05/03/22 10:00 05/12/22 09:25 Polyethylene Glycol 3350 17 Gm Powder FEEDTUBE Not Given QDAY CONNOR Risperidone 0.5 mg 04/25/22 11:00 05/12/22 09:35 Risperidone 1 Mg Tab FEEDTUBE 0.5 mg BID CONNOR Administration Scopolamine 1 each 05/02/22 10:00 05/11/22 09:13 Scopolamine Transdermal Patch 72 Hr TD 1 each Q3D CONNOR Administration Senna 17.2 mg 04/23/22 10:00 05/12/22 09:26 Sennosides 8.6 Mg Tab FEEDTUBE Not Given BID CONNOR Sodium Chloride 10 ml 04/19/22 12:00 05/12/22 09:35 Sodium Chloride 0.9% 10 Ml Flush Syringe IV 10 ml BID CONNOR Administration Sodium Chloride 10 ml 04/19/22 11:19 Sodium Chloride 0.9% 10 Ml Flush Syringe IV PRN PRN LINE FLUSH Valproic Acid 750 mg 04/22/22 22:00 05/12/22 09:36 Valproic Acid 250 Mg/5 Ml Oral Liqd FEEDTUBE 750 mg BID CONNOR Administration Nutrition/Malnutrition Assess - Dietary Evaluation Nutrition/Malnutrition Findings: Nutrition Notes Start: 04/19/22 17:39 Freq: Status: Active Protocol: Document 05/05/22 14:44 SHILA (Rec: 05/05/22 14:55 SHILA [id number]) Nutrition Notes Initial or Follow up Reassessment Current Diagnosis CKD (stage V CKD),Sepsis, Respiratory Failure Other Pertinent Diagnosis Neurogenic dysphagia, metabolic encephalopathy, vascular dementia Current Diet No diet order in chart Labs/Tests Na 130 K 3.3 BUN 24 Cr 2.3 BG 163 Phos 1.5 Pertinent Medications Colace, Senokot, Miralax, Levophed gtt, Vasopressin gtt Height 5 ft 2 in Weight 54.43 kg [place] Body Weight (kg) 50.00 BMI 21.9 Weight Status Appropriate Subjective/Other Information PEG placed yesterday. Pt remains on vent and HD support . Observed Nepro infusing at 30ml/hr. No BM documented today. Bronchoscopy performed today. Percent of energy/protein needs met: 104% energy 90% pro Burn Absent Trauma Absent #1 Nutrition Diagnosis Inadequate oral intake, Swallowing difficulty Diagnosis Progress(for reassessment Continues documentation) Is patient on ventilator? Yes Is Patient Ambulatory and/or Out of Bed No REE-([facility]-confined to bed) [phone] Calculation Used for Recommendations [facility] Additional Notes Pro needs >1.2g/kg: >65g/day Fluid needs 1-1.5L/day Nutrition Intervention Nutrition Support: Continue Nepro at 30ml/hr with 130ml water flush q4h. Kcal 1,296 Protein (gm) 58 Carbohydrates (gm) 116 Fat (gm) 69 Fluid (mL) 523 Fiber (gm) 9 Goal #1 TF tolerance Goal #2 TF to meet at least 75% energy and pro needs Follow-Up By: 05/12/22 Additional Comments F/U: stable TF, vent status, wt, BM
--- NOTE | 2022-05-10 19:17 | Progress Note ---
Assessment and Plan Cultures: 04/21/2022 blood culture: No growth 04/21/2022 tracheal aspirate culture: Usual respiratory wyatt 04/22/2022 urine culture: No growth 04/30/2022 blood culture: No growth 04/30/2022 urine culture: No growth 05/02/2022 sputum culture: MRSA 05/02/2022 urine culture: No growth 05/03/2022 COVID-19 PCR: Positive A/P: 63-year-old male with obesity, hypertension, diabetes, atrial fibrillation was admitted to the hospital on 04/21/2022 with out of hospital cardiac arrest/V. fib arrest with ROSC. He was severely acidotic, placed on pressors, intubated, on mechanical ventilation: #Severe sepsis: Ruled out bacteremia, catheter associated UTI so far. COVID-19 positive. #COVID-19: #S/p [id number] cardiac arrest/V. 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 Creatinine gradually better. #Aspiration pneumonia #Acute hypoxic respiratory failure: On mechanical ventilation. #Acute urinary retention: Has Cleary catheter in place. #Elevated LFTs: RUQ ultrasound showed fatty liver. Recs: -continue steroids for COVID-19. Complete 10 days. -Completed Remdesivir -given fevers and possibility of bacterial infection, not a candidate for Actemra -Continue empiric IV cefepime plan 8 days. -Complete 10 days vancomycin for MRSA in sputum Guero Templeton MD [facility] ([facility]) O: [phone] F: [phone] Subjective Date of service: 05/10/22 Principal diagnosis: Neurogenic dysphagia Interval history: Afebrile, normal white count. No acute change. Objective - Exam Narrative Exam: Physical Exam: Constitutional: Alert, cooperative. No acute distress Head, Ears, Nose: Normocephalic, atraumatic. External ears, nose normal Eyes: Conjunctivae/corneas clear. No icterus. No ptosis. Neck: Supple, no meningeal signs Oral: dentition fair, no thrush Cardiovascular: S1, S2 normal. Respiratory: Good air entry, clear to auscultation bilaterally GI: Soft, non-tender; bowel sounds normal. No peritoneal signs. Musculoskeletal: No pedal edema, no cyanosis. Skin: No rash or abscess Hem/Lymphatic: No palpable cervical or supraclavicular nodes. No lymphangitis Psych: Mood ok. Affect normal Neurological: Awake, alert, oriented. No gross abnormality - Constitutional Vitals: Vital Signs Temp Pulse Resp BP Pulse Ox 99.5 F 105 H 13 125/50 100 05/10/22 16:00 05/10/22 18:00 05/10/22 18:00 05/10/22 18:00 05/10/22 18:00 Temperature -Last 24 Hours Temperature 99.5 F Temperature 99 F Temperature 98.7 F Temperature 99.1 F Temperature 98.9 F Temperature 99 F - Labs CBC & Chem 7: 05/09/22 04:25 05/09/22 04:25 Labs: Abnormal lab results 05/10/22 05/10/22 Range/Units 05:55 16:37 POC Glucose 164 H 130 H (70-105) mg/dL
[2022-05-11] MEDS: IPRATROPIUM/ALBUTEROL SULFATE 3 ML AMPUL.NEB IH SCH ×3 (08:38→20:11)
[2022-05-11] MEDS: VALPROIC ACID 250 MG/5 ML ORAL LIQD FEEDTUBE SCH ×2 (09:11→21:13)
[2022-05-11] MEDS: MIDODRINE 10 MG TAB FEEDTUBE SCH ×3 (09:11→21:10)
[2022-05-11] MEDS: risperiDONE 1 MG TAB FEEDTUBE SCH ×2 (09:12→21:13)
[2022-05-11] MEDS: MEMANTINE 5 MG TAB FEEDTUBE SCH ×2 (09:12→21:13)
[2022-05-11] MEDS: LANSOPRAZOLE 30 MG SOLUTAB FEEDTUBE SCH (09:12)
[2022-05-11] MEDS: SCOPOLAMINE TRANSDERMAL PATCH 72 HR TD SCH (09:13)
[2022-05-11] MEDS: DOCUSATE SODIUM 100 MG/10 ML ORAL LIQD FEEDTUBE SCH ×2 (09:28→22:00)
[2022-05-11] MEDS: SENNOSIDES 8.6 MG TAB FEEDTUBE SCH ×2 (09:28→22:00)
[2022-05-11] MEDS: POLYETHYLENE GLYCOL 3350 17 GM POWDER FEEDTUBE SCH (09:28)
--- NOTE | 2022-05-11 09:53 | Progress Note ---
Assessment and Plan Impression: * End stage renal disease * AMS * SVT s/p cardioversion * IJ thrombus * NSTEMI * SIRS * Hypotension * Anemia secondary to ESRD * Secondary hyperparathyroidism Plan: * HD today. Continue HD TTS schedule * UF as tolerated * Midodrine TID * Maintain MAP>65, vasopressors prn * Avoid potential nephrotoxins * Epogen TIW prn * Nutrition via PEG * Dose medications for renal function Subjective Date of service: 05/11/22 Principal diagnosis: Neurogenic dysphagia Interval history: No acute events overnight. Objective - Vital Signs Vital signs: Vital Signs - 12hr 05/10/22 05/10/22 05/10/22 22:00 22:15 22:30 Temperature Pulse Rate 104 H 107 H 107 H Pulse Rate [ Anterior Bilateral Throughout] Respiratory 14 15 14 Rate Respiratory Rate [Anterior Bilateral Throughout] Blood Pressure 112/53 114/60 114/57 O2 Sat by Pulse 100 100 100 Oximetry O2 Sat by Pulse Oximetry [ Anterior Bilateral Throughout] 05/10/22 05/10/22 05/10/22 22:45 23:00 23:15 Temperature Pulse Rate 105 H 103 H 104 H Pulse Rate [ Anterior Bilateral Throughout] Respiratory 15 17 14 Rate Respiratory Rate [Anterior Bilateral Throughout] Blood Pressure 122/49 118/48 110/50 O2 Sat by Pulse 100 100 100 Oximetry O2 Sat by Pulse Oximetry [ Anterior Bilateral Throughout] 05/10/22 05/10/22 05/10/22 23:24 23:30 23:45 Temperature Pulse Rate 103 H 103 H 103 H Pulse Rate [ Anterior Bilateral Throughout] Respiratory 15 15 14 Rate Respiratory Rate [Anterior Bilateral Throughout] Blood Pressure 110/50 98/50 117/50 O2 Sat by Pulse 100 100 100 Oximetry O2 Sat by Pulse Oximetry [ Anterior Bilateral Throughout] 05/11/22 05/11/22 05/11/22 00:00 00:08 00:15 Temperature 99.1 F Pulse Rate 104 H 101 H 103 H Pulse Rate [ Anterior Bilateral Throughout] Respiratory 16 18 Rate Respiratory Rate [Anterior Bilateral Throughout] Blood Pressure 110/55 117/50 104/56 O2 Sat by Pulse 100 100 100 Oximetry O2 Sat by Pulse Oximetry [ Anterior Bilateral Throughout] 05/11/22 05/11/22 05/11/22 00:30 00:45 01:00 Temperature Pulse Rate 106 H 101 H 102 H Pulse Rate [ Anterior Bilateral Throughout] Respiratory 16 14 14 Rate Respiratory Rate [Anterior Bilateral Throughout] Blood Pressure 122/53 131/50 112/49 O2 Sat by Pulse 99 99 99 Oximetry O2 Sat by Pulse Oximetry [ Anterior Bilateral Throughout] 05/11/22 05/11/22 05/11/22 01:16 01:30 01:45 Temperature Pulse Rate 98 H 101 H 101 H Pulse Rate [ Anterior Bilateral Throughout] Respiratory 14 15 14 Rate Respiratory Rate [Anterior Bilateral Throughout] Blood Pressure 98/41 107/47 116/50 O2 Sat by Pulse 100 100 100 Oximetry O2 Sat by Pulse Oximetry [ Anterior Bilateral Throughout] 05/11/22 05/11/22 05/11/22 02:00 02:15 02:30 Temperature Pulse Rate 99 H 102 H 101 H Pulse Rate [ Anterior Bilateral Throughout] Respiratory 17 15 16 Rate Respiratory Rate [Anterior Bilateral Throughout] Blood Pressure 107/48 117/48 132/51 O2 Sat by Pulse 100 100 99 Oximetry O2 Sat by Pulse Oximetry [ Anterior Bilateral Throughout] 05/11/22 05/11/22 05/11/22 02:45 03:01 03:15 Temperature Pulse Rate 102 H 106 H 99 H Pulse Rate [ Anterior Bilateral Throughout] Respiratory 15 13 14 Rate Respiratory Rate [Anterior Bilateral Throughout] Blood Pressure 126/42 99/43 117/45 O2 Sat by Pulse 100 99 100 Oximetry O2 Sat by Pulse Oximetry [ Anterior Bilateral Throughout] 05/11/22 05/11/22 05/11/22 03:30 03:45 04:00 Temperature 99.6 F Pulse Rate 105 H 108 H 111 H Pulse Rate [ Anterior Bilateral Throughout] Respiratory 15 16 14 Rate Respiratory Rate [Anterior Bilateral Throughout] Blood Pressure 112/49 133/52 137/54 O2 Sat by Pulse 100 100 99 Oximetry O2 Sat by Pulse Oximetry [ Anterior Bilateral Throughout] 05/11/22 05/11/22 05/11/22 04:12 04:15 04:30 Temperature Pulse Rate 111 H 115 H 101 H Pulse Rate [ Anterior Bilateral Throughout] Respiratory 14 15 Rate Respiratory Rate [Anterior Bilateral Throughout] Blood Pressure 137/54 140/56 96/42 O2 Sat by Pulse 99 99 100 Oximetry O2 Sat by Pulse Oximetry [ Anterior Bilateral Throughout] 05/11/22 05/11/22 05/11/22 04:45 05:00 05:15 Temperature Pulse Rate 100 H 100 H 102 H Pulse Rate [ Anterior Bilateral Throughout] Respiratory 14 14 15 Rate Respiratory Rate [Anterior Bilateral Throughout] Blood Pressure 95/44 111/44 110/47 O2 Sat by Pulse 100 100 100 Oximetry O2 Sat by Pulse Oximetry [ Anterior Bilateral Throughout] 05/11/22 05/11/22 05/11/22 05:30 05:45 06:00 Temperature Pulse Rate 100 H 99 H 103 H Pulse Rate [ Anterior Bilateral Throughout] Respiratory 14 14 14 Rate Respiratory Rate [Anterior Bilateral Throughout] Blood Pressure 112/46 110/49 109/54 O2 Sat by Pulse 100 100 100 Oximetry O2 Sat by Pulse Oximetry [ Anterior Bilateral Throughout] 05/11/22 05/11/22 05/11/22 06:15 06:30 06:45 Temperature Pulse Rate 98 H 94 H 97 H Pulse Rate [ Anterior Bilateral Throughout] Respiratory 14 14 14 Rate Respiratory Rate [Anterior Bilateral Throughout] Blood Pressure 112/48 105/41 112/46 O2 Sat by Pulse 100 99 99 Oximetry O2 Sat by Pulse Oximetry [ Anterior Bilateral Throughout] 05/11/22 05/11/22 05/11/22 07:01 07:15 07:19 Temperature Pulse Rate 99 H 93 H 95 H Pulse Rate [ Anterior Bilateral Throughout] Respiratory 19 14 Rate Respiratory Rate [Anterior Bilateral Throughout] Blood Pressure 109/40 110/44 O2 Sat by Pulse 100 99 Oximetry O2 Sat by Pulse Oximetry [ Anterior Bilateral Throughout] 05/11/22 05/11/22 05/11/22 07:30 07:43 07:44 Temperature 100.1 F H Pulse Rate 98 H Pulse Rate [ Anterior Bilateral Throughout] Respiratory 14 Rate Respiratory Rate [Anterior Bilateral Throughout] Blood Pressure 123/48 O2 Sat by Pulse 99 99 Oximetry O2 Sat by Pulse Oximetry [ Anterior Bilateral Throughout] 05/11/22 05/11/22 05/11/22 07:45 08:00 08:15 Temperature Pulse Rate 100 H 110 H 113 H Pulse Rate [ Anterior Bilateral Throughout] Respiratory 14 16 16 Rate Respiratory Rate [Anterior Bilateral Throughout] Blood Pressure 124/54 132/58 141/61 O2 Sat by Pulse 98 98 98 Oximetry O2 Sat by Pulse Oximetry [ Anterior Bilateral Throughout] 05/11/22 05/11/22 05/11/22 08:28 08:30 08:32 Temperature Pulse Rate 113 H 112 H 113 H Pulse Rate [ Anterior Bilateral Throughout] Respiratory 37 H 41 H Rate Respiratory Rate [Anterior Bilateral Throughout] Blood Pressure 138/66 138/66 138/66 O2 Sat by Pulse 97 97 99 Oximetry O2 Sat by Pulse Oximetry [ Anterior Bilateral Throughout] 05/11/22 05/11/22 05/11/22 08:39 08:45 09:00 Temperature 98.3 F Pulse Rate 106 H 106 H Pulse Rate [ 108 H Anterior Bilateral Throughout] Respiratory 21 Rate Respiratory 14 Rate [Anterior Bilateral Throughout] Blood Pressure 116/60 116/60 O2 Sat by Pulse 99 Oximetry O2 Sat by Pulse 97 Oximetry [ Anterior Bilateral Throughout] 05/11/22 05/11/22 05/11/22 09:01 09:15 09:30 Temperature Pulse Rate 107 H 114 H 115 H Pulse Rate [ Anterior Bilateral Throughout] Respiratory 14 13 Rate Respiratory Rate [Anterior Bilateral Throughout] Blood Pressure 116/60 131/75 114/53 O2 Sat by Pulse 99 99 Oximetry O2 Sat by Pulse Oximetry [ Anterior Bilateral Throughout] 05/11/22 09:45 Temperature Pulse Rate 115 H Pulse Rate [ Anterior Bilateral Throughout] Respiratory Rate Respiratory Rate [Anterior Bilateral Throughout] Blood Pressure 121/53 O2 Sat by Pulse Oximetry O2 Sat by Pulse Oximetry [ Anterior Bilateral Throughout] - General Appearance General appearance: well-developed, well-nourished, intubated EENT: ATNC, other (ETT in place) Integumentary: warm and dry Musculoskeletal: other (+bilateral upper/lower extremity edema) - Lab 05/09/22 04:25 05/09/22 04:25 Most recent lab results ABG pH 7.421 pH Units (7.350-7.450) 05/08/22 21:00 ABG pCO2 42.4 mm Hg 05/08/22 21:00 ABG pO2 68.8 mm Hg (80.0-90.0) L 05/08/22 21:00 ABG HCO3 27.0 mmol/L (20.0-26.0) H 05/08/22 21:00 ABG O2 Saturation 95.7 % (95.0-99.0) 05/08/22 21:00 Calcium 8.7 mg/dL (8.4-10.2) 05/09/22 04:25 Phosphorus 3.00 mg/dL (2.5-4.5) D 05/09/22 04:25 Magnesium 1.80 mg/dL (1.7-2.3) 05/09/22 04:25 Medications & Allergies - Medications Allergies/Adverse Reactions: Allergies buspirone [From BuSpar] Allergy (Verified 04/18/22 12:22) Unknown Penicillins Allergy (Verified 04/18/22 12:22) Rash corn Adverse Reaction (Verified 04/18/22 12:22) Unknown Home Medications: Home Medications Medication Instructions Recorded Confirmed Last Taken Type Sevelamer Carbonate [Renvela] 0.8 gram PO TIDWM 09/02/20 02/02/22 05/31/21 History HYDROcodone/APAP 5-325 [Eighty Four 1 each PO Q4HR PRN #30 tablet 05/18/21 02/02/22 Unknown Rx 5-325 mg TAB] ALBUTEROL NEB's [Proventil 0.083% 2.5 mg IH Q3HRT PRN #1 nebu 03/03/22 Unknown Rx NEBS] Clopidogrel [Plavix] 75 mg PO QDAY #90 tablet 03/03/[address] [Sarina Serrano] 750 mg PO BID #60 tablet 03/03/22 Unknown Rx LORazepam [Ativan] 1 mg PO DAILY #30 tab 03/03/22 Unknown Rx Memantine Xr [Namenda Xr] 5 mg PO DAILY #30 cap 03/03/22 Unknown Rx Midodrine [Proamatine] 10 mg PO TID #90 tab 03/03/22 Unknown Rx Pantoprazole [Protonix TAB] 40 mg PO DAILY #30 tab 03/03/22 Unknown Rx QUEtiapine [SEROquel] 400 mg PO BID #60 tab 03/03/22 Unknown Rx risperiDONE [RisperDAL] 0.5 mg PO BID #60 tab 03/03/22 Unknown Rx Active Medications: Generic Name Dose Route Start Last Admin Trade Name Freq PRN Reason Stop Dose Admin Acetaminophen 650 mg 04/22/22 20:12 05/03/22 23:41 Acetaminophen 325 Mg/10.15 Ml Oral Liqd Unit Dose PO 650 mg Q6H PRN Administration Pain MILD(1-3)/Fever >100.5/DRAKE Albumin Human 25 gm 04/21/22 13:00 04/22/22 16:31 Albumin Human 25% (25 Gm/100 Ml) Inj IV 25 gm BIANCA PRN Administration Hypotension Albuterol 2.5 mg 04/21/22 08:30 04/24/22 16:51 Albuterol 2.5 Mg/3 Ml Nebu IH 2.5 mg Q3HRT PRN Administration Shortness Of Breath Albuterol/Ipratropium 1 ampul 04/21/22 14:00 05/11/22 08:38 Ipratropium/Albuterol Sulfate 3 Ml Ampul.Neb IH 1 ampul TIDRT CONNOR Administration Docusate Sodium 100 mg 05/01/22 22:00 05/11/22 09:28 Docusate Sodium 100 Mg/10 Ml Oral Liqd FEEDTUBE Not Given BID CONNOR Epoetin Lb-epbx 20,000 unit 04/23/22 12:00 05/09/22 14:58 Epoetin Lb-Epbx 20,000 Unit/1 Ml Vial IV 20,000 unit BIANCA PRN Administration HEMODIALYSIS Fentanyl 50 mcg 05/03/22 10:29 05/05/22 12:23 Fentanyl 100 Mcg/2 Ml Inj IV 25 mcg Q10MIN PRN Administration ANALGESIA Sodium Chloride 100 mls @ 999 mls/hr 04/22/22 09:12 Nacl 0.9% IV BIACNA PRN Hypotension Fentanyl Citrate 2,000 mcg in 100 mls @ 2.722 mls/hr 05/03/22 11:00 Fentanyl Drip Premix IV TITR CONNOR Protocol 1 MCG/KG/HR NORepinephrine/NS 8 MG-250 ML 8 mg in 250 mls @ 3.75 mls/hr 05/03/22 13:15 05/06/22 10:06 Norepinephrine/Ns 8 Mg-250 Ml (Double Conc) IV 0 mcg/min TITRATE CONNOR 0 mls/hr Titration Protocol 2 MCG/MIN Vasopressin 20 unit/ Sodium 101 mls @ 9.09 mls/hr 05/04/22 00:30 05/06/22 11:21 Chloride IV 0 units/min TITR CONNOR 0 mls/hr Infusion 0.03 UNITS/MIN Vancomycin HCl 750 mg/ Sodium 265 mls @ 166.667 mls/hr 05/09/22 22:00 05/09/22 21:27 Chloride IV 05/15/22 21:59 166.667 mls/hr TuThSa CONNOR Administration Lansoprazole 30 mg 04/23/22 10:00 05/11/22 09:12 Lansoprazole 30 Mg Solutab FEEDTUBE 30 mg QDAY CONNOR Administration Lorazepam 0.5 mg 04/25/22 09:59 Lorazepam 0.5 Mg Tab FEEDTUBE QDAY PRN Anxiety Memantine 5 mg 04/25/22 10:00 05/11/22 09:12 Memantine 5 Mg Tab FEEDTUBE 5 mg BID CONNOR Administration Metoclopramide HCl 5 mg 04/19/22 09:55 Metoclopramide 10 Mg/2 Ml Inj IV Q6H PRN Nausea And Vomiting Midodrine 20 mg 04/26/22 14:00 05/11/22 09:11 Midodrine 10 Mg Tab FEEDTUBE 20 mg TID CONNOR Administration Naloxone HCl 0.1 mg 04/19/22 09:55 Naloxone 0.4 Mg/1 Ml Inj IV Q2MIN PRN Res Rate </= 8 or 02 SAT < 92% Polyethylene Glycol 17 gm 05/03/22 10:00 05/11/22 09:28 Polyethylene Glycol 3350 17 Gm Powder FEEDTUBE Not Given QDAY CONNOR Risperidone 0.5 mg 04/25/22 11:00 05/11/22 09:12 Risperidone 1 Mg Tab FEEDTUBE 0.5 mg BID CONNOR Administration Scopolamine 1 each 05/02/22 10:00 05/11/22 09:13 Scopolamine Transdermal Patch 72 Hr TD 1 each Q3D CONNOR Administration Senna 17.2 mg 04/23/22 10:00 05/11/22 09:28 Sennosides 8.6 Mg Tab FEEDTUBE Not Given BID CONNOR Sodium Chloride 10 ml 04/19/22 12:00 05/11/22 09:11 Sodium Chloride 0.9% 10 Ml Flush Syringe IV 10 ml BID CONNOR Administration Sodium Chloride 10 ml 04/19/22 11:19 Sodium Chloride 0.9% 10 Ml Flush Syringe IV PRN PRN LINE FLUSH Valproic Acid 750 mg 04/22/22 22:00 05/11/22 09:11 Valproic Acid 250 Mg/5 Ml Oral Liqd FEEDTUBE 750 mg BID CONNOR Administration
--- NOTE | 2022-05-11 14:04 | Progress Note ---
Assessment and Plan Acute hypoxemic respiratory failure on High flow oxygen therapy Atelectasis with mediastinal shift Acute on Chronic Hypotension- possibly secondary to sepsis Acute on Chronic Metabolic Encephalopathy Possible Shock Syndrome SVT Elevated troponin Bipolar disorder Schizophrenia, Hyperkalemia ESRD on hemodialysis Anemia of chronic disease, Type 2 NSTEMI GERD Subclinical Hypothyroidism Moderate protein caloric malnutrition Inconsistently tolerating PSV, failed today Plan for tracheostomy VAP bundle addressed, Continue with HD, optimize UF Complete antibiotics per ID Daily SBT -Titrate supplemental oxygen to keep SpO2 90-92% -CXR, ABG as clinically indicated - Aspiration precautions, HOB >40 - continue bronchodilators with pulmonary hygiene per RT - wean per pulmonary driven protocols otherwise - enteral nutrition at goal rate as tolerated - femoral CVL - Albumin 25 gms of 25% solution prn with dialysis - continue HD/UF per nephrology prescription for toxin and volume clearance - continue accuchecks with glycemic control per SSI (While critically ill target blood glucose of 140-180 mg/dL; avoid hypoglycemia) - avoid nephrotoxins, renally dose all medications - continue to avoid benzodiazepines, reduce the possibility of delirium - prn analgesia per CPOT score - Maintenance of sleep-wake cycle, avoid delirium - Stress ulcer (Lansoprazole) -VTE prophylaxis - mobility protocol, off loading and frequent turning per facility protocol to prevent pressure ulcers - Monitor hemodynamics closely - continue other care per attending / other consultants CONDITION: CRITICAL PROGNOSIS: GUARDED CODE STATUS: FULL CODE The high probability of a clinically significant, sudden or life-threatening deterioration of the [respiratory, cardiovascular, renal & neurologic] system(s) required my full and direct attention, intervention and personal management. The aggregate critical care time was [35] minutes without overlap. Time includes spent on; [x] Data Review and interpretation [x] Patient assessment and monitoring of vital signs [x] Documentation [x] Medication orders and management Subjective Date of service: 05/11/22 Principal diagnosis: Neurogenic Dysphagia Interval history: Seen and examined at bedside; 24hour events reviewed; nursing and respiratory care staff consulted; no adverse overnight events reported to me; resting in bed;off vasopressors; No fevers, no vomiting, no diarrhea Remains on MVS, orally intubated. s/p HD Failed PSV trials- secondary to tachypnea and tachycardia. Objective Vital Signs - 12hr 05/11/22 05/11/22 05/11/22 02:15 02:30 02:45 Temperature Pulse Rate 102 H 101 H 102 H Pulse Rate [ Anterior Bilateral Throughout] Respiratory 15 16 15 Rate Respiratory Rate [Anterior Bilateral Throughout] Blood Pressure 117/48 132/51 126/42 O2 Sat by Pulse 100 99 100 Oximetry O2 Sat by Pulse Oximetry [ Anterior Bilateral Throughout] 05/11/22 05/11/22 05/11/22 03:01 03:15 03:30 Temperature Pulse Rate 106 H 99 H 105 H Pulse Rate [ Anterior Bilateral Throughout] Respiratory 13 14 15 Rate Respiratory Rate [Anterior Bilateral Throughout] Blood Pressure 99/43 117/45 112/49 O2 Sat by Pulse 99 100 100 Oximetry O2 Sat by Pulse Oximetry [ Anterior Bilateral Throughout] 05/11/22 05/11/22 05/11/22 03:45 04:00 04:12 Temperature 99.6 F Pulse Rate 108 H 111 H 111 H Pulse Rate [ Anterior Bilateral Throughout] Respiratory 16 14 Rate Respiratory Rate [Anterior Bilateral Throughout] Blood Pressure 133/52 137/54 137/54 O2 Sat by Pulse 100 99 99 Oximetry O2 Sat by Pulse Oximetry [ Anterior Bilateral Throughout] 05/11/22 05/11/22 05/11/22 04:15 04:30 04:45 Temperature Pulse Rate 115 H 101 H 100 H Pulse Rate [ Anterior Bilateral Throughout] Respiratory 14 15 14 Rate Respiratory Rate [Anterior Bilateral Throughout] Blood Pressure 140/56 96/42 95/44 O2 Sat by Pulse 99 100 100 Oximetry O2 Sat by Pulse Oximetry [ Anterior Bilateral Throughout] 05/11/22 05/11/22 05/11/22 05:00 05:15 05:30 Temperature Pulse Rate 100 H 102 H 100 H Pulse Rate [ Anterior Bilateral Throughout] Respiratory 14 15 14 Rate Respiratory Rate [Anterior Bilateral Throughout] Blood Pressure 111/44 110/47 112/46 O2 Sat by Pulse 100 100 100 Oximetry O2 Sat by Pulse Oximetry [ Anterior Bilateral Throughout] 05/11/22 05/11/22 05/11/22 05:45 06:00 06:15 Temperature Pulse Rate 99 H 103 H 98 H Pulse Rate [ Anterior Bilateral Throughout] Respiratory 14 14 14 Rate Respiratory Rate [Anterior Bilateral Throughout] Blood Pressure 110/49 109/54 112/48 O2 Sat by Pulse 100 100 100 Oximetry O2 Sat by Pulse Oximetry [ Anterior Bilateral Throughout] 05/11/22 05/11/22 05/11/22 06:30 06:45 07:01 Temperature Pulse Rate 94 H 97 H 99 H Pulse Rate [ Anterior Bilateral Throughout] Respiratory 14 14 19 Rate Respiratory Rate [Anterior Bilateral Throughout] Blood Pressure 105/41 112/46 109/40 O2 Sat by Pulse 99 99 100 Oximetry O2 Sat by Pulse Oximetry [ Anterior Bilateral Throughout] 05/11/22 05/11/22 05/11/22 07:15 07:19 07:30 Temperature Pulse Rate 93 H 95 H 98 H Pulse Rate [ Anterior Bilateral Throughout] Respiratory 14 14 Rate Respiratory Rate [Anterior Bilateral Throughout] Blood Pressure 110/44 123/48 O2 Sat by Pulse 99 99 Oximetry O2 Sat by Pulse Oximetry [ Anterior Bilateral Throughout] 05/11/22 05/11/22 05/11/22 07:43 07:44 07:45 Temperature 100.1 F H Pulse Rate 100 H Pulse Rate [ Anterior Bilateral Throughout] Respiratory 14 Rate Respiratory Rate [Anterior Bilateral Throughout] Blood Pressure 124/54 O2 Sat by Pulse 99 98 Oximetry O2 Sat by Pulse Oximetry [ Anterior Bilateral Throughout] 05/11/22 05/11/22 05/11/22 08:00 08:15 08:28 Temperature Pulse Rate 110 H 113 H 113 H Pulse Rate [ Anterior Bilateral Throughout] Respiratory 16 16 37 H Rate Respiratory Rate [Anterior Bilateral Throughout] Blood Pressure 132/58 141/61 138/66 O2 Sat by Pulse 98 98 97 Oximetry O2 Sat by Pulse Oximetry [ Anterior Bilateral Throughout] 05/11/22 05/11/22 05/11/22 08:30 08:32 08:39 Temperature Pulse Rate 112 H 113 H Pulse Rate [ 108 H Anterior Bilateral Throughout] Respiratory 41 H Rate Respiratory 14 Rate [Anterior Bilateral Throughout] Blood Pressure 138/66 138/66 O2 Sat by Pulse 97 99 Oximetry O2 Sat by Pulse Oximetry [ Anterior Bilateral Throughout] 05/11/22 05/11/22 05/11/22 08:45 09:00 09:01 Temperature 98.3 F Pulse Rate 106 H 106 H 107 H Pulse Rate [ Anterior Bilateral Throughout] Respiratory 21 14 Rate Respiratory Rate [Anterior Bilateral Throughout] Blood Pressure 116/60 116/60 116/60 O2 Sat by Pulse 99 99 Oximetry O2 Sat by Pulse 97 Oximetry [ Anterior Bilateral Throughout] 05/11/22 05/11/22 05/11/22 09:15 09:30 09:45 Temperature Pulse Rate 114 H 120 H 116 H Pulse Rate [ Anterior Bilateral Throughout] Respiratory 13 23 14 Rate Respiratory Rate [Anterior Bilateral Throughout] Blood Pressure 131/75 114/53 121/53 O2 Sat by Pulse 99 95 96 Oximetry O2 Sat by Pulse Oximetry [ Anterior Bilateral Throughout] 05/11/22 05/11/22 05/11/22 10:00 10:15 10:30 Temperature Pulse Rate 117 H 111 H 112 H Pulse Rate [ Anterior Bilateral Throughout] Respiratory 20 17 18 Rate Respiratory Rate [Anterior Bilateral Throughout] Blood Pressure 118/58 111/53 111/55 O2 Sat by Pulse 98 100 99 Oximetry O2 Sat by Pulse Oximetry [ Anterior Bilateral Throughout] 05/11/22 05/11/22 05/11/22 10:45 11:00 11:15 Temperature Pulse Rate 110 H 108 H 108 H Pulse Rate [ Anterior Bilateral Throughout] Respiratory 18 19 15 Rate Respiratory Rate [Anterior Bilateral Throughout] Blood Pressure 121/56 107/41 108/55 O2 Sat by Pulse 100 100 100 Oximetry O2 Sat by Pulse Oximetry [ Anterior Bilateral Throughout] 05/11/22 05/11/22 05/11/22 11:30 11:45 12:00 Temperature 99.5 F Pulse Rate 105 H 104 H 103 H Pulse Rate [ Anterior Bilateral Throughout] Respiratory 21 18 18 Rate Respiratory Rate [Anterior Bilateral Throughout] Blood Pressure 94/39 104/47 112/51 O2 Sat by Pulse 100 100 100 Oximetry O2 Sat by Pulse Oximetry [ Anterior Bilateral Throughout] 05/11/22 05/11/22 05/11/22 12:15 12:25 12:30 Temperature Pulse Rate 106 H 107 H 100 H Pulse Rate [ Anterior Bilateral Throughout] Respiratory 18 14 Rate Respiratory Rate [Anterior Bilateral Throughout] Blood Pressure 115/49 115/49 112/45 O2 Sat by Pulse 100 100 100 Oximetry O2 Sat by Pulse Oximetry [ Anterior Bilateral Throughout] 05/11/22 05/11/22 05/11/22 12:45 12:58 13:00 Temperature 99.3 F Pulse Rate 103 H 103 H 101 H Pulse Rate [ Anterior Bilateral Throughout] Respiratory 16 18 15 Rate Respiratory Rate [Anterior Bilateral Throughout] Blood Pressure 102/50 112/48 117/47 O2 Sat by Pulse 100 100 Oximetry O2 Sat by Pulse 100 Oximetry [ Anterior Bilateral Throughout] Constitutional: lethargic, appears uncomfortable, other (eldely female with mildly increased respiratory effort at rest, orally intubated) Eyes: non-icteric ENT: oropharynx moist, oropharyngeal exudate pre (clear frothy) Neck: supple, no lymphadenopathy, no JVD Effort: mildly labored Ascultation: Bilateral: diminished breath sounds, rhonchi Cardiovascular: regular rate and rhythm, other (S1,S2) Gastrointestinal: normoactive bowel sounds, soft, non-tender, non-distended, other (PEG) Integumentary: normal Extremities: no cyanosis, no edema, pulses normal, no ischemia or petechiae Neurologic: non-focal exam (grossly), pupils equal and round, other (lethargic, moaning and groaning) Psychiatric: other (flat affect) CBC and BMP: 05/12/22 04:11 05/12/22 06:00 ABG, PT/INR, D-dimer: ABG ABG pH 7.421 pH Units (7.350-7.450) 05/08/22 21:00 ABG pCO2 42.4 mm Hg 05/08/22 21:00 ABG pO2 68.8 mm Hg (80.0-90.0) L 05/08/22 21:00 ABG O2 Saturation 95.7 % (95.0-99.0) 05/08/22 21:00 PT/INR, D-dimer PT 17.6 Sec. (12.2-14.9) H 05/04/22 04:26 INR 1.29 (0.87-1.13) H 05/04/22 04:26 Abnormal lab findings: Abnormal Labs 04/19/22 04/19/22 04/19/22 04:53 04:53 04:53 WBC RBC 3.06 L Hgb 8.6 L Hct 28.0 L RDW 16.3 H Plt Count Barnes % (Auto) 11.3 H Lymph # (Auto) Seg Neuts % (Manual) Lymphocytes % (Manual) Nucleated RBC % Seg Neutrophils # Man Lymphocytes # (Manual) PT INR APTT Heparin Anti-Xa Level ABG pH ABG pO2 ABG HCO3 ABG Base Excess ABG Hemoglobin Oxyhemoglobin Sodium Potassium 5.1 H Chloride Carbon Dioxide 21 L BUN 94 H Creatinine 6.3 H Glucose POC Glucose Phosphorus Magnesium Troponin T 0.415 H* Albumin 2.7 L Free T4 0.28 L Crossmatch 04/19/22 04/19/22 04/20/22 19:40 19:40 05:30 WBC 4.1 L RBC 2.97 L Hgb 8.5 L 8.2 L Hct 27.8 L 27.1 L RDW 17.0 H Plt Count Barnes % (Auto) 15.2 H Lymph # (Auto) 1.1 L Seg Neuts % (Manual) Lymphocytes % (Manual) Nucleated RBC % Seg Neutrophils # Man Lymphocytes # (Manual) PT 17.9 H INR 1.28 H APTT 199.1 H* Heparin Anti-Xa Level ABG pH ABG pO2 ABG HCO3 ABG Base Excess ABG Hemoglobin Oxyhemoglobin Sodium Potassium Chloride Carbon Dioxide BUN Creatinine Glucose POC Glucose Phosphorus Magnesium Troponin T Albumin Free T4 Crossmatch 04/20/22 04/20/22 04/21/22 05:30 18:23 00:29 WBC RBC Hgb Hct RDW Plt Count Barnes % (Auto) Lymph # (Auto) Seg Neuts % (Manual) Lymphocytes % (Manual) Nucleated RBC % Seg Neutrophils # Man Lymphocytes # (Manual) PT INR APTT Heparin Anti-Xa Level 0.17 L ABG pH ABG pO2 ABG HCO3 ABG Base Excess ABG Hemoglobin Oxyhemoglobin Sodium Potassium Chloride Carbon Dioxide 21 L BUN 95 H Creatinine 6.6 H Glucose 139 H POC Glucose Phosphorus Magnesium 2.60 H Troponin T Albumin 2.4 L Free T4 Crossmatch 04/21/22 04/21/22 04/22/22 04:00 04:00 03:45 WBC RBC 2.74 L Hgb 7.7 L Hct 24.7 L RDW 16.6 H Plt Count Barnes % (Auto) Lymph # (Auto) Seg Neuts % (Manual) Lymphocytes % (Manual) Nucleated RBC % Seg Neutrophils # Man Lymphocytes # (Manual) PT INR APTT Heparin Anti-Xa Level < 0.10 L ABG pH ABG pO2 ABG HCO3 ABG Base Excess ABG Hemoglobin Oxyhemoglobin Sodium 133 L Potassium Chloride Carbon Dioxide 20 L BUN 89 H Creatinine 6.6 H Glucose 131 H POC Glucose Phosphorus 6.40 H Magnesium 2.50 H Troponin T Albumin Free T4 Crossmatch 04/22/22 04/22/22 04/22/22 03:45 12:13 14:30 WBC RBC Hgb Hct RDW Plt Count Barnes % (Auto) Lymph # (Auto) Seg Neuts % (Manual) Lymphocytes % (Manual) Nucleated RBC % Seg Neutrophils # Man Lymphocytes # (Manual) PT INR APTT Heparin Anti-Xa Level 0.11 L 0.11 L ABG pH ABG pO2 ABG HCO3 ABG Base Excess ABG Hemoglobin Oxyhemoglobin Sodium 136 L Potassium Chloride Carbon Dioxide 18 L BUN 90 H Creatinine 6.3 H Glucose 121 H POC Glucose Phosphorus 6.50 H Magnesium Troponin T Albumin Free T4 Crossmatch 04/22/22 04/23/22 04/23/22 23:08 02:17 04:10 WBC RBC Hgb 7.3 L Hct 23.3 L RDW Plt Count Barnes % (Auto) Lymph # (Auto) Seg Neuts % (Manual) Lymphocytes % (Manual) Nucleated RBC % Seg Neutrophils # Man Lymphocytes # (Manual) PT INR APTT Heparin Anti-Xa Level 0.14 L ABG pH ABG pO2 ABG HCO3 ABG Base Excess ABG Hemoglobin Oxyhemoglobin Sodium Potassium Chloride Carbon Dioxide BUN Creatinine Glucose POC Glucose 153 H Phosphorus Magnesium Troponin T Albumin Free T4 Crossmatch 04/23/22 04/23/22 04/23/22 04:10 06:09 23:22 WBC RBC Hgb Hct RDW Plt Count Barnes % (Auto) Lymph # (Auto) Seg Neuts % (Manual) Lymphocytes % (Manual) Nucleated RBC % Seg Neutrophils # Man Lymphocytes # (Manual) PT INR APTT Heparin Anti-Xa Level ABG pH ABG pO2 ABG HCO3 ABG Base Excess ABG Hemoglobin Oxyhemoglobin Sodium Potassium Chloride Carbon Dioxide BUN 36 H Creatinine 3.4 H Glucose 131 H POC Glucose 141 H 114 H Phosphorus Magnesium Troponin T Albumin Free T4 Crossmatch 04/24/22 04/24/22 04/24/22 02:10 04:00 04:00 WBC RBC 2.48 L Hgb 7.1 L Hct 22.6 L RDW 16.9 H Plt Count Barnes % (Auto) Lymph # (Auto) Seg Neuts % (Manual) Lymphocytes % (Manual) Nucleated RBC % Seg Neutrophils # Man Lymphocytes # (Manual) PT INR APTT Heparin Anti-Xa Level 0.12 L ABG pH ABG pO2 ABG HCO3 ABG Base Excess ABG Hemoglobin Oxyhemoglobin Sodium 134 L Potassium Chloride Carbon Dioxide BUN 42 H Creatinine 3.9 H Glucose 141 H POC Glucose Phosphorus Magnesium Troponin T Albumin Free T4 Crossmatch 04/24/22 04/24/22 04/24/22 05:03 10:20 11:24 WBC RBC Hgb Hct RDW Plt Count Barnes % (Auto) Lymph # (Auto) Seg Neuts % (Manual) Lymphocytes % (Manual) Nucleated RBC % Seg Neutrophils # Man Lymphocytes # (Manual) PT INR APTT Heparin Anti-Xa Level < 0.10 L ABG pH ABG pO2 ABG HCO3 ABG Base Excess ABG Hemoglobin Oxyhemoglobin Sodium Potassium Chloride Carbon Dioxide BUN Creatinine Glucose POC Glucose 142 H 144 H Phosphorus Magnesium Troponin T Albumin Free T4 Crossmatch 04/25/22 04/25/22 04/25/22 00:15 04:11 04:11 WBC 4.4 L RBC 2.38 L Hgb 6.7 L Hct 21.7 L RDW 17.2 H Plt Count Barnes % (Auto) Lymph # (Auto) Seg Neuts % (Manual) Lymphocytes % (Manual) Nucleated RBC % Seg Neutrophils # Man Lymphocytes # (Manual) PT INR APTT Heparin Anti-Xa Level ABG pH ABG pO2 ABG HCO3 ABG Base Excess ABG Hemoglobin Oxyhemoglobin Sodium 134 L Potassium Chloride 97.1 L Carbon Dioxide BUN 47 H Creatinine 4.3 H Glucose 106 H POC Glucose 136 H Phosphorus Magnesium Troponin T Albumin Free T4 Crossmatch 04/25/22 04/25/22 04/25/22 06:01 15:30 22:44 WBC RBC Hgb 8.8 L Hct 28.1 L D RDW Plt Count Barnes % (Auto) Lymph # (Auto) Seg Neuts % (Manual) Lymphocytes % (Manual) Nucleated RBC % Seg Neutrophils # Man Lymphocytes # (Manual) PT INR APTT Heparin Anti-Xa Level ABG pH ABG pO2 ABG HCO3 ABG Base Excess ABG Hemoglobin Oxyhemoglobin Sodium Potassium Chloride Carbon Dioxide BUN Creatinine Glucose POC Glucose 137 H Phosphorus Magnesium Troponin T Albumin Free T4 Crossmatch See Detail 04/26/22 04/27/22 04/27/22 04:20 04:45 04:45 WBC RBC 2.81 L 3.13 L Hgb 8.0 L 9.0 L Hct 25.4 L 29.1 L RDW 16.2 H 17.4 H Plt Count Barnes % (Auto) Lymph # (Auto) Seg Neuts % (Manual) Lymphocytes % (Manual) Nucleated RBC % Seg Neutrophils # Man Lymphocytes # (Manual) PT INR APTT Heparin Anti-Xa Level ABG pH ABG pO2 ABG HCO3 ABG Base Excess ABG Hemoglobin Oxyhemoglobin Sodium 131 L Potassium Chloride 93.5 L Carbon Dioxide BUN 44 H Creatinine 3.9 H Glucose 135 H POC Glucose Phosphorus Magnesium Troponin T Albumin Free T4 Crossmatch 04/27/22 04/28/22 04/28/22 23:38 05:26 07:54 WBC 11.1 H RBC 2.40 L Hgb 6.9 L Hct 22.1 L D RDW 17.2 H Plt Count Barnes % (Auto) Lymph # (Auto) Seg Neuts % (Manual) Lymphocytes % (Manual) Nucleated RBC % Seg Neutrophils # Man Lymphocytes # (Manual) PT INR APTT Heparin Anti-Xa Level ABG pH ABG pO2 ABG HCO3 ABG Base Excess ABG Hemoglobin Oxyhemoglobin Sodium Potassium Chloride Carbon Dioxide BUN Creatinine Glucose POC Glucose 229 H 169 H Phosphorus Magnesium Troponin T Albumin Free T4 Crossmatch 04/28/22 04/28/22 04/29/22 12:31 17:54 00:49 WBC RBC Hgb Hct RDW Plt Count Barnes % (Auto) Lymph # (Auto) Seg Neuts % (Manual) Lymphocytes % (Manual) Nucleated RBC % Seg Neutrophils # Man Lymphocytes # (Manual) PT INR APTT Heparin Anti-Xa Level ABG pH ABG pO2 ABG HCO3 ABG Base Excess ABG Hemoglobin Oxyhemoglobin Sodium Potassium Chloride Carbon Dioxide BUN Creatinine Glucose POC Glucose 132 H 138 H 189 H Phosphorus Magnesium Troponin T Albumin Free T4 Crossmatch 04/29/22 04/29/22 04/29/22 06:42 10:54 10:54 WBC 11.8 H RBC 2.93 L Hgb 8.6 L Hct 26.2 L RDW 16.8 H Plt Count Barnes % (Auto) Lymph # (Auto) Seg Neuts % (Manual) Lymphocytes % (Manual) Nucleated RBC % Seg Neutrophils # Man Lymphocytes # (Manual) PT INR APTT Heparin Anti-Xa Level ABG pH ABG pO2 ABG HCO3 ABG Base Excess ABG Hemoglobin Oxyhemoglobin Sodium 129 L Potassium Chloride 91.5 L Carbon Dioxide BUN 46 H Creatinine 3.1 H Glucose 180 H POC Glucose 196 H Phosphorus Magnesium Troponin T Albumin Free T4 Crossmatch 04/29/22 04/29/22 04/30/22 12:03 23:32 05:57 WBC RBC Hgb Hct RDW Plt Count Barnes % (Auto) Lymph # (Auto) Seg Neuts % (Manual) Lymphocytes % (Manual) Nucleated RBC % Seg Neutrophils # Man Lymphocytes # (Manual) PT INR APTT Heparin Anti-Xa Level ABG pH ABG pO2 ABG HCO3 ABG Base Excess ABG Hemoglobin Oxyhemoglobin Sodium Potassium Chloride Carbon Dioxide BUN Creatinine Glucose POC Glucose 169 H 170 H 151 H Phosphorus Magnesium Troponin T Albumin Free T4 Crossmatch 04/30/22 04/30/22 04/30/22 11:28 16:39 23:22 WBC RBC Hgb Hct RDW Plt Count Barnes % (Auto) Lymph # (Auto) Seg Neuts % (Manual) Lymphocytes % (Manual) Nucleated RBC % Seg Neutrophils # Man Lymphocytes # (Manual) PT INR APTT Heparin Anti-Xa Level ABG pH ABG pO2 ABG HCO3 ABG Base Excess ABG Hemoglobin Oxyhemoglobin Sodium Potassium Chloride Carbon Dioxide BUN Creatinine Glucose POC Glucose 159 H 147 H 170 H Phosphorus Magnesium Troponin T Albumin Free T4 Crossmatch 05/01/22 05/01/22 05/01/22 04:00 05:34 15:23 WBC RBC 2.92 L Hgb 8.4 L Hct 26.7 L RDW 16.6 H Plt Count Barnes % (Auto) Lymph # (Auto) Seg Neuts % (Manual) Lymphocytes % (Manual) Nucleated RBC % Seg Neutrophils # Man Lymphocytes # (Manual) PT INR APTT Heparin Anti-Xa Level ABG pH ABG pO2 74.2 L ABG HCO3 27.8 H ABG Base Excess ABG Hemoglobin 8.7 L Oxyhemoglobin 94.5 L Sodium Potassium Chloride Carbon Dioxide BUN Creatinine Glucose POC Glucose 140 H Phosphorus Magnesium Troponin T Albumin Free T4 Crossmatch 05/02/22 05/02/22 05/02/22 05:54 05:54 05:54 WBC RBC 2.85 L Hgb 8.3 L Hct 25.9 L RDW 16.5 H Plt Count Barnes % (Auto) Lymph # (Auto) Seg Neuts % (Manual) Lymphocytes % (Manual) Nucleated RBC % Seg Neutrophils # Man Lymphocytes # (Manual) PT INR APTT Heparin Anti-Xa Level ABG pH ABG pO2 ABG HCO3 ABG Base Excess ABG Hemoglobin Oxyhemoglobin Sodium 130 L 128 L Potassium Chloride 90.9 L 90.0 L Carbon Dioxide BUN 49 H 49 H Creatinine 3.7 H 3.8 H Glucose 191 H 184 H POC Glucose Phosphorus Magnesium Troponin T Albumin Free T4 Crossmatch 05/02/22 05/03/22 05/03/22 14:15 04:24 04:24 WBC RBC 2.71 L Hgb 7.8 L Hct 24.8 L RDW 16.6 H Plt Count Barnes % (Auto) Lymph # (Auto) Seg Neuts % (Manual) Lymphocytes % (Manual) Nucleated RBC % Seg Neutrophils # Man Lymphocytes # (Manual) PT INR APTT 39.4 H Heparin Anti-Xa Level ABG pH ABG pO2 ABG HCO3 29.1 H ABG Base Excess 4.3 H ABG Hemoglobin 8.4 L Oxyhemoglobin 94.8 L Sodium Potassium Chloride Carbon Dioxide BUN Creatinine Glucose POC Glucose Phosphorus Magnesium Troponin T Albumin Free T4 Crossmatch 05/03/22 05/03/22 05/03/22 04:24 15:17 17:30 WBC RBC Hgb Hct RDW Plt Count Barnes % (Auto) Lymph # (Auto) Seg Neuts % (Manual) Lymphocytes % (Manual) Nucleated RBC % Seg Neutrophils # Man Lymphocytes # (Manual) PT INR APTT Heparin Anti-Xa Level ABG pH 7.577 H ABG pO2 140.4 H ABG HCO3 26.4 H ABG Base Excess 4.0 H ABG Hemoglobin 5.4 L Oxyhemoglobin Sodium 132 L Potassium Chloride 93.0 L Carbon Dioxide BUN 31 H Creatinine 2.8 H Glucose 119 H POC Glucose 60 L Phosphorus 2.10 L Magnesium Troponin T Albumin Free T4 Crossmatch 05/03/22 05/04/22 05/04/22 23:33 04:26 04:26 WBC 16.0 H RBC 2.39 L Hgb 6.9 L Hct 21.4 L RDW 15.8 H Plt Count Barnes % (Auto) Lymph # (Auto) Seg Neuts % (Manual) Lymphocytes % (Manual) Nucleated RBC % Seg Neutrophils # Man Lymphocytes # (Manual) PT INR APTT Heparin Anti-Xa Level ABG pH ABG pO2 ABG HCO3 ABG Base Excess ABG Hemoglobin Oxyhemoglobin Sodium 133 L Potassium Chloride 94.8 L Carbon Dioxide BUN 34 H Creatinine 3.5 H Glucose 175 H POC Glucose 106 H Phosphorus Magnesium Troponin T Albumin Free T4 Crossmatch 05/04/22 05/04/22 05/04/22 04:26 05:30 05:40 WBC RBC Hgb Hct RDW Plt Count Barnes % (Auto) Lymph # (Auto) Seg Neuts % (Manual) Lymphocytes % (Manual) Nucleated RBC % Seg Neutrophils # Man Lymphocytes # (Manual) PT 17.6 H INR 1.29 H APTT Heparin Anti-Xa Level ABG pH 7.547 H ABG pO2 141.7 H ABG HCO3 27.2 H ABG Base Excess 5.3 H ABG Hemoglobin 6.9 L Oxyhemoglobin Sodium Potassium Chloride Carbon Dioxide BUN Creatinine Glucose POC Glucose Phosphorus Magnesium Troponin T Albumin Free T4 Crossmatch See Detail 05/04/22 05/04/22 05/04/22 05:41 12:55 18:10 WBC RBC Hgb Hct RDW Plt Count Barnes % (Auto) Lymph # (Auto) Seg Neuts % (Manual) Lymphocytes % (Manual) Nucleated RBC % Seg Neutrophils # Man Lymphocytes # (Manual) PT INR APTT Heparin Anti-Xa Level ABG pH ABG pO2 ABG HCO3 ABG Base Excess ABG Hemoglobin Oxyhemoglobin Sodium Potassium Chloride Carbon Dioxide BUN Creatinine Glucose POC Glucose 177 H 141 H 143 H Phosphorus Magnesium Troponin T Albumin Free T4 Crossmatch 05/05/22 05/05/22 05/05/22 00:05 04:20 04:20 WBC 12.8 H RBC 2.81 L Hgb 8.0 L Hct 24.8 L RDW 16.8 H Plt Count Barnes % (Auto) Lymph # (Auto) Seg Neuts % (Manual) 86.0 H Lymphocytes % (Manual) 4.0 L Nucleated RBC % 1.0 H Seg Neutrophils # Man 11.0 H Lymphocytes # (Manual) 0.5 L PT INR APTT Heparin Anti-Xa Level ABG pH ABG pO2 ABG HCO3 ABG Base Excess ABG Hemoglobin Oxyhemoglobin Sodium 130 L Potassium 3.3 L Chloride 94.0 L Carbon Dioxide BUN 24 H Creatinine 2.3 H Glucose 163 H POC Glucose 163 H Phosphorus 1.50 L Magnesium Troponin T Albumin Free T4 Crossmatch 05/05/22 05/05/22 05/05/22 05:18 10:06 12:11 WBC RBC Hgb Hct RDW Plt Count Barnes % (Auto) Lymph # (Auto) Seg Neuts % (Manual) Lymphocytes % (Manual) Nucleated RBC % Seg Neutrophils # Man Lymphocytes # (Manual) PT INR APTT Heparin Anti-Xa Level ABG pH ABG pO2 91.7 H ABG HCO3 27.4 H ABG Base Excess ABG Hemoglobin 11.4 L Oxyhemoglobin Sodium Potassium Chloride Carbon Dioxide BUN Creatinine Glucose POC Glucose 163 H 186 H Phosphorus Magnesium Troponin T Albumin Free T4 Crossmatch 05/05/22 05/06/22 05/06/22 16:29 04:45 04:59 WBC RBC Hgb Hct RDW Plt Count Barnes % (Auto) Lymph # (Auto) Seg Neuts % (Manual) Lymphocytes % (Manual) Nucleated RBC % Seg Neutrophils # Man Lymphocytes # (Manual) PT INR APTT Heparin Anti-Xa Level ABG pH ABG pO2 112.7 H ABG HCO3 ABG Base Excess ABG Hemoglobin 7.8 L Oxyhemoglobin Sodium Potassium Chloride Carbon Dioxide BUN Creatinine Glucose POC Glucose 170 H 146 H Phosphorus Magnesium Troponin T Albumin Free T4 Crossmatch 05/06/22 05/06/22 05/06/22 05:02 05:02 11:34 WBC RBC 2.78 L Hgb 7.9 L Hct 25.1 L RDW 16.7 H Plt Count 119 L Barnes % (Auto) Lymph # (Auto) Seg Neuts % (Manual) Lymphocytes % (Manual) Nucleated RBC % Seg Neutrophils # Man Lymphocytes # (Manual) PT INR APTT Heparin Anti-Xa Level ABG pH ABG pO2 ABG HCO3 ABG Base Excess ABG Hemoglobin Oxyhemoglobin Sodium 135 L Potassium 3.3 L Chloride 97.9 L Carbon Dioxide BUN 30 H Creatinine 2.7 H Glucose 148 H POC Glucose 130 H Phosphorus 1.50 L Magnesium Troponin T Albumin Free T4 Crossmatch 05/06/22 05/06/22 05/07/22 16:48 23:34 04:15 WBC RBC 2.95 L Hgb 8.4 L Hct 26.7 L RDW 16.7 H Plt Count 112 L Barnes % (Auto) Lymph # (Auto) Seg Neuts % (Manual) Lymphocytes % (Manual) Nucleated RBC % Seg Neutrophils # Man Lymphocytes # (Manual) PT INR APTT Heparin Anti-Xa Level ABG pH ABG pO2 ABG HCO3 ABG Base Excess ABG Hemoglobin Oxyhemoglobin Sodium Potassium Chloride Carbon Dioxide BUN Creatinine Glucose POC Glucose 121 H 145 H Phosphorus Magnesium Troponin T Albumin Free T4 Crossmatch 05/07/22 05/07/22 05/07/22 04:15 05:26 11:08 WBC RBC Hgb Hct RDW Plt Count Barnes % (Auto) Lymph # (Auto) Seg Neuts % (Manual) Lymphocytes % (Manual) Nucleated RBC % Seg Neutrophils # Man Lymphocytes # (Manual) PT INR APTT Heparin Anti-Xa Level ABG pH ABG pO2 ABG HCO3 ABG Base Excess ABG Hemoglobin Oxyhemoglobin Sodium 131 L Potassium 3.4 L Chloride 95.3 L Carbon Dioxide BUN 28 H Creatinine 2.5 H Glucose 140 H POC Glucose 136 H 136 H Phosphorus 1.20 L Magnesium Troponin T Albumin Free T4 Crossmatch 05/07/22 05/07/22 05/08/22 17:26 23:23 04:06 WBC RBC 2.87 L Hgb 8.2 L Hct 25.8 L RDW 16.2 H Plt Count 118 L Barnes % (Auto) Lymph # (Auto) Seg Neuts % (Manual) Lymphocytes % (Manual) Nucleated RBC % Seg Neutrophils # Man Lymphocytes # (Manual) PT INR APTT Heparin Anti-Xa Level ABG pH ABG pO2 ABG HCO3 ABG Base Excess ABG Hemoglobin Oxyhemoglobin Sodium Potassium Chloride Carbon Dioxide BUN Creatinine Glucose POC Glucose 135 H 123 H Phosphorus Magnesium Troponin T Albumin Free T4 Crossmatch 05/08/22 05/08/22 05/08/22 04:06 04:40 11:31 WBC RBC Hgb Hct RDW Plt Count Barnes % (Auto) Lymph # (Auto) Seg Neuts % (Manual) Lymphocytes % (Manual) Nucleated RBC % Seg Neutrophils # Man Lymphocytes # (Manual) PT INR APTT Heparin Anti-Xa Level ABG pH 7.482 H ABG pO2 103.9 H ABG HCO3 ABG Base Excess ABG Hemoglobin 8.1 L Oxyhemoglobin Sodium 132 L Potassium 3.3 L Chloride 93.2 L Carbon Dioxide BUN 36 H Creatinine 2.9 H Glucose 145 H POC Glucose 138 H Phosphorus 2.00 L D Magnesium Troponin T Albumin Free T4 Crossmatch 05/08/22 05/08/22 05/08/22 16:11 21:00 23:46 WBC RBC Hgb Hct RDW Plt Count Barnes % (Auto) Lymph # (Auto) Seg Neuts % (Manual) Lymphocytes % (Manual) Nucleated RBC % Seg Neutrophils # Man Lymphocytes # (Manual) PT INR APTT Heparin Anti-Xa Level ABG pH ABG pO2 68.8 L ABG HCO3 27.0 H ABG Base Excess ABG Hemoglobin 8.4 L Oxyhemoglobin 93.4 L Sodium Potassium Chloride Carbon Dioxide BUN Creatinine Glucose POC Glucose 134 H 142 H Phosphorus Magnesium Troponin T Albumin Free T4 Crossmatch 05/09/22 05/09/22 05/09/22 04:25 04:25 11:29 WBC RBC 2.86 L Hgb 8.0 L Hct 25.7 L RDW 16.2 H Plt Count 101 L Barnes % (Auto) Lymph # (Auto) Seg Neuts % (Manual) Lymphocytes % (Manual) Nucleated RBC % Seg Neutrophils # Man Lymphocytes # (Manual) PT INR APTT Heparin Anti-Xa Level ABG pH ABG pO2 ABG HCO3 ABG Base Excess ABG Hemoglobin Oxyhemoglobin Sodium 132 L Potassium 3.5 L Chloride 93.7 L Carbon Dioxide BUN 42 H Creatinine 3.0 H Glucose 145 H POC Glucose 180 H Phosphorus Magnesium Troponin T Albumin Free T4 Crossmatch 05/09/22 05/10/22 05/10/22 16:19 05:55 16:37 WBC RBC Hgb Hct RDW Plt Count Barnes % (Auto) Lymph # (Auto) Seg Neuts % (Manual) Lymphocytes % (Manual) Nucleated RBC % Seg Neutrophils # Man Lymphocytes # (Manual) PT INR APTT Heparin Anti-Xa Level ABG pH ABG pO2 ABG HCO3 ABG Base Excess ABG Hemoglobin Oxyhemoglobin Sodium Potassium Chloride Carbon Dioxide BUN Creatinine Glucose POC Glucose 143 H 164 H 130 H Phosphorus Magnesium Troponin T Albumin Free T4 Crossmatch 05/11/22 05/11/22 00:56 05:13 WBC RBC Hgb Hct RDW Plt Count Barnes % (Auto) Lymph # (Auto) Seg Neuts % (Manual) Lymphocytes % (Manual) Nucleated RBC % Seg Neutrophils # Man Lymphocytes # (Manual) PT INR APTT Heparin Anti-Xa Level ABG pH ABG pO2 ABG HCO3 ABG Base Excess ABG Hemoglobin Oxyhemoglobin Sodium Potassium Chloride Carbon Dioxide BUN Creatinine Glucose POC Glucose 179 H 139 H Phosphorus Magnesium Troponin T Albumin Free T4 Crossmatch Chest x-ray: image reviewed Allied health notes reviewed: RT
--- NOTE | 2022-05-11 14:10 | Progress Note ---
<NONALORRAINE WintersSue - Last Filed: 05/11/22 14:07> Assessment and Plan Assessment and plan: This is a 66-year-old female with HTN, GERD, seizure disorder, vascular dementia, ESRD on HD, chronic hypertension, bipolar, schizophrenia, anxiety admitted with acute hypoxic respiratory failure, acute on chronic hypotension, acute on chronic metabolic encephalopathy and SVT Neuro: h/o vascular dementia, schizophrenia, bipolar, anxiety disorder -Continue home Seroquel at reduced dose -As needed Ativan -Reorientation as needed -Maintain sleep-wake cycle -As needed analgesia -Continue home memantine, respiradol, valproic acid -CT head showed no acute intracranial abnormalities, no significant interval changes -Psych consulted, appreciate recommendations Cardiac: SVT s/p cardioversion, chronic hypotension, NSTEMI type II -Cardiology consulted, appreciate recommendations -Blood pressure monitoring per protocol -s/p vasopressor support with Levophed -Cortisol 24.4 -s/p Fludrocortisone for 4 doses -Midodrine 20mg TID -Echo 01/31/2022-EF 60 to 65%. Doppler flow pattern suggests impaired LV relaxation. Right ventricle systolic function is normal trace aortic regurgitat ion. Trace mitral regurgitation. -Lipitor, Plavix Respiratory: Acute hypoxic respiratory failure -CCM consulted, appreciate recommendations -Chest ultrasound showed bilateral pleural effusions, right greater than left -05/05 s/p therapeutic bronch at the bedside -Intubated 05/01 for bronch with 7.5 oett at 22 at the lips -ABG abg and CXR noted -AM vent settings: AC Rate 14, TV 450, Peep 6, FiO2 30% -See RT notes for titration -Pulmonary hygiene -SPO2 monitor per protocol -CTA chest with contrast shows large right and moderate-sized left pleural effusions with moderate body wall edema, groundglass pulmonary opacities in the upper lobes likely representing atypical pneumonia, no CT evidence of pulmonary embolism. -Chest US pending GI: Moderate protein calorie malnutrition, dysphagia s/p PEG -GI consulted -s/p peg 05/04 -24 hours + 1305 mL -PPI -TF -BR: Senokot : ESRD on HD, hypophosphatemia, hypokalemia -Nephrology consulted, appreciate recommendations -HD per nephrology (TThSat) -Monitor intake and output -Renally dose medications -Avoid nephrotoxic medications -Epogen 3 times daily -Trend BMP ID: Septic Shock (unable to determine status), MRSA PNA -ID consulted, appreciate recommendations -f/u blood culture -04/19 blood cultures x2 NGTD, bronch wash with MRSA -ABX therapy with vanco -Monitor WBC and temperature curve Endo: NAD -Avoid hypoglycemia Heme: Anemia of chronic disease, RIJ thrombus (chronic), leukocytosis -Vascular surgery consulted, appreciate recommendations -no need for heparin gtt per vascular surgery -Trend CBC -Transfuse hemoglobin less than 7 -s/p 3 unit PRBC -Epogen 3 times daily -SCDs to BLE while in bed The high probability of a clinically significant, sudden or life threatening deterioration of the [multiple] system(s) required my full and direct attention, intervention and personal management. The aggregate critical care time was [60] minutes. This time is in addition to time spent performing reported procedures but includes the following: [x] Data Review and interpretation [x] Patient assessment and monitoring of vital signs [x] Documentation [x] Medication orders and management Disposition Plan: ICU Total Time Spent with Patient (Minutes): 60 History Interval history: This is a 66-year-old female with HTN, GERD, seizure disorder, vascular dementia, ESRD on HD (TTS), OA, chronic hypotension, bipolar, schizophrenia, anxiety examined mobility with a resident of [facility] present to the emergency department on 04/19 with altered mental status and for being combati ve causing her to miss several days of hemodialysis. On presentation patient was found to be more hypertensive than usual and on room air with oxygen saturations in the 90s and she subsequently went into SVT into the 150s requiring cardioversion under conscious sedation. Patient was admitted to the hospital service with acute hypoxic respiratory failure, acute on chronic hypotension, acute on chronic metabolic encephalopathy, SVT, hyperkalemia, NSTEMI type II to the ICU with consults to CCM, nephrology cardiology and psych. Hospital Course to Date: 04/20: Patient went into Afib with RVR overnight, now on amiodarone gtt per cardio. Patient remains in AFib with RVR this am, HR in the 120-140s. BP marginal on Levophed gtt, currently not a candidate for BB. Midodrine increased to 15mg TID. 2D Echo pending. On heparin gtt per protocol. No HD today per nephro due to hypotension and tachycardia. 04/21: Converted to SR this am, remains on Amiodarone and heparin. Awaiting cardio final recommendations. Still on Levophed gtt for low BP, given patient history of chronic hypotension, Wean pressor for MAP goal of 60s. Patient is pocketing foods, currently NPO, awaiting speech eval and treat. 04/22: Patient passed speech swallow eval yesterday, however, patient is refusing PO intakes including meds. Will insert DHT for nutrition and meds administration. Patient remains in SR this am, amiodaron gtt transitioned to PO per cardio. Patient remains on heparin and Levophed gtt. Patient has not received PO midrodrine for 24hrs, resume meds once DHT is inserted. Keep femoral CVC for another 24hrs, anticipating will be able to wean off pressor once patient receive midodrine. Will reassess in the morning. No HD overnight, unable to cannulate AVF, plan to attempt again today per Nephro. Possible IR/Vascular surgery consult if unsuccessful again today. 04/23: Mentation a lot better this am. DHT was inserted, meds resumed and TF initiated. Levophed gtt increased overnight due to worsen hypotension, suspected it is due to sedative agents. Seroquel decreased to 200mg BID and scheduled ativan switched to PRN. Continue midodrine TID and wean off levophed gtt for MAP goal of 60. Patient tolerated HD yesterday, continue iHD per Nephrology. CCM recommendations noted, Chest US ordered for pleural effusion. 04/24: RN instructed to wean Levophed off, goal MAP of 60. Heparin drip stopped due to decreasing hemoglobin. 04/25: ST had cleared the patient for pured diet which will be started today, hemodialysis planned for today, patient was to be anemic and will receive 1 unit PRBC with HD. We will increase midodrine to 20 mg 3 times daily if patient becomes hypotensive during dialysis. Per CCM. Decrease in seroqoul but will increase if needed 04/26: Patient agreeable to PEG, GI consulted for placement. Femoral line removed 04/27: No acute events reported overnight, patient has been cardiac cleared for PEG tube placement. Possible PEG in the a.m. This afternoon attempted to place IJ CVL which was unsuccessful and Dr. Mcguire ultimately placed femoral CVL for the initiation of Levophed. HD scheduled for today. 04/28: Patient initially started on Levophed yesterday and she received a femoral CVL. 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 Vascular surgery was consulted. Patient also noted to be anemic and received 1 unit PRBC today. 04/29: Possible hemodialysis today, patient was able to be weaned off of Levophed today. Hemoglobin responded well to 1 unit PRBC. Awaiting trach/PEG placement. Patient will not need to be started on heparin drip per vascular cano rgery. No acute events reported overnight. 04/30: HD yesterday without removal of fluids, patient needs NT suctioning. Updated son today. 05/01: Patient with increase mucous production and is unable to fully clear her airway, Rhonchi auscultated throughout her lungs this am. SPO2 at 90 to 94% on 3 L NC. D/W CCM, patient is high risk for aspiration will placed patient on heated HF at 40L for now instead of Bipap. Nasal bleeding also noted, mostly due to NT suctioning. Refrain from NT suctioning for now due to bleeding, only oral suctioning. PO seroquel held this amP atient is AAO, appropriate, and following commands. Levophed gtt weaned off, patient remains hemodynamically stable. Will discuss Nephro for possible fluid removal tonight or early tomorrow. Very low threshold for intubation. Patient's condition and plan of care, including possible intubation, thoroughly discussed with patient's son-Raymundo Randolph at . Patient's son verbalized understanding of the info provided and agreed with intubation if necessary. 05/02: Remains on HHFL at 40% and 40L, mentation is unchanged. HD at the bedside, plan for possible UF with fluid removal today. Continue O2 supplementation and wean as tolerated, for SPO2 above 92%. Repeat CXR in the am. Patient vital signs remains stable, still off pressors. Plan for possible PEG-tube placement by GI tomorrow, NPO after MN. Possible fistulogram for RIJ thrombus on or sunday per Vascular Surgery. 05/03: Complete white-out of right side from this am CXR, probable mucus plug. S/p intubation and bronch at the bedside by CCM. Patient remains sedated and required short duration of Levophed gtt during the procedure. Pressor was wean off, VSS. Plan for CPT and mucomyst Q12hrs. Repeat CXR in the am. PEG-Tube placement postpone for possibly tomorrow if patient remains stable. Possible fistulogram for RIJ thrombus on or Sunday per Vascular Surgery. 05/04: Remains on the vent, easily arousable. High fevers overnight with spike in leukocytosis, now on 2 pressors. CCM d/w ID, recommendations to repeat blood cultures and empiric IV abx- Cefepine and Vanco. low H&H this am, no s/s of any active bleeding, 1units of PRBCs during iHD today. S/p PEG-tube placement at this bedside this am by GI, no complications noted. Resume TF once clear by GI. 05/05: Remains on low vent setting. This am CXR with increase opacities on the right side again today, s/p therapeutic bronch at the bedside today by CCM. Repeat CXR in the am. Remains with low grade fevers and on 2 pressors. Bronchial wash with Staph A. and blood cultures pending. Continue current IV Abx per ID. 05/06: Stable on the vent this am. Only on low dose pressors, MAP above 65. CXR with some improvement, peep dropped to 8 per CCM. Continue CPT and Mucomyst TID. If patient remains stable overnight, possible PSV trial in the am. Fevers and leukocytosis improved. Continue current IV Abx per ID. Continue iHD per Nephro 05/07: Remains stable on the vent, afebrile and off pressors this am VSS. This am CXR reviewed, increased opacities on the right side. Patient remains on low vent settings. Further management per CCM, continue CPT and Mucomyst TID. Bronch wash with MRSA, blood cultures pending. Continue current IV Abx per ID. 05/08: We will replete potassium, CCM would like a CTA chest but evaluate atelectasis/consolidation/effusions. LTAC evaluation 05/09: HD today, CTA chest completed. CPAP yesterday but rested on AC overnight. 05/10: Patient discharge will be delayed till tomorrow due to bed unavailability at LTAC facility, no acute distress overnight. Patient placed on PSV but failed. 05/11: Transferred to LTAC has been delayed. Patient received hemodialysis today. Patient CPAP trial and she fell today. No acute events reported overnig ht. Hospitalist Physical - Constitutional Vitals: Temp Pulse Resp BP Pulse Ox 99.3 F 101 H 15 117/47 100 05/11/22 12:58 05/11/22 13:00 05/11/22 13:00 05/11/22 13:00 05/11/22 13:00 General appearance: Present: no acute distress, other (intubated) - EENT Eyes: Present: PERRL, EOM intact ENT: poor dentition - Neck Neck: Present: normal ROM - Respiratory Respiratory effort: normal Respiratory: bilateral: diminished, rhonchi - Cardiovascular Rhythm: regular Heart Sounds: Present: S1 & S2. Absent: systolic murmur, diastolic murmur - Extremities Extremities: pulses intact, pulses symmetrical Extremity abnormal: edema Peripheral Pulses: within normal limits - Abdominal General gastrointestinal: soft, non-tender, non-distended, normal bowel sounds - Integumentary Integumentary: Present: warm, dry - Psychiatric Psychiatric: cooperative - Neurologic Neurologic: CNII-XII intact - Allied Health Allied health notes reviewed: nursing, RT, social work HEART Score - HEART Score Troponin: Troponin T 0.415 ng/mL (0.00-0.029) H* 04/19/22 04:53 Results - Labs CBC & Chem 7: 05/09/22 04:25 05/09/22 04:25 Labs: Laboratory Last Values WBC 6.3 K/mm3 (4.5-11.0) 05/09/22 04:25 RBC 2.86 M/mm3 (3.65-5.03) L 05/09/22 04:25 Hgb 8.0 gm/dl (10.1-14.3) L 05/09/22 04:25 Hct 25.7 % (30.3-42.9) L 05/09/22 04:25 MCV 90 fl (79-97) 05/09/22 04:25 MCH 28 pg (28-32) 05/09/22 04:25 MCHC 31 % (30-34) 05/09/22 04:25 RDW 16.2 % (13.2-15.2) H 05/09/22 04:25 Plt Count 101 K/mm3 (140-440) L 05/09/22 04:25 Lymph % (Auto) 26.7 % (13.4-35.0) 04/20/22 05:30 [place] % (Auto) 15.2 % (0.0-7.3) H 04/20/22 05:30 Eos % (Auto) 3.8 % (0.0-4.3) 04/20/22 05:30 Baso % (Auto) 1.2 % (0.0-1.8) 04/20/22 05:30 Lymph # (Auto) 1.1 K/mm3 (1.2-5.4) L 04/20/22 05:30 [place] # (Auto) 0.6 K/mm3 (0.0-0.8) 04/20/22 05:30 Eos # (Auto) 0.2 K/mm3 (0.0-0.4) 04/20/22 05:30 Baso # (Auto) 0.0 K/mm3 (0.0-0.1) 04/20/22 05:30 Add Manual Diff Complete 05/05/22 04:20 Total Counted 100 05/05/22 04:20 Seg Neutrophils % 53.1 % (40.0-70.0) 04/20/22 05:30 Seg Neuts % (Manual) 86.0 % (40.0-70.0) H 05/05/22 04:20 Band Neutrophils % 3.0 % 05/05/22 04:20 Lymphocytes % (Manual) 4.0 % (13.4-35.0) L 05/05/22 04:20 Reactive Lymphs % (Man) 0 % 05/05/22 04:20 Monocytes % (Manual) 6.0 % (0.0-7.3) 05/05/22 04:20 Eosinophils % (Manual) 1.0 % (0.0-4.3) 05/05/22 04:20 Basophils % (Manual) 0 % (0.0-1.8) 05/05/22 04:20 Metamyelocytes % 0 % 05/05/22 04:20 Myelocytes % 0 % 05/05/22 04:20 Promyelocytes % 0 % 05/05/22 04:20 Blast Cells % 0 % 05/05/22 04:20 Nucleated RBC % 1.0 % (0.0-0.9) H 05/05/22 04:20 Seg Neutrophils # 2.2 K/mm3 (1.8-7.7) 04/20/22 05:30 Seg Neutrophils # Man 11.0 K/mm3 (1.8-7.7) H 05/05/22 04:20 Band Neutrophils # 0.4 K/mm3 05/05/22 04:20 Lymphocytes # (Manual) 0.5 K/mm3 (1.2-5.4) L 05/05/22 04:20 Abs React Lymphs (Man) 0.0 K/mm3 05/05/22 04:20 Monocytes # (Manual) 0.8 K/mm3 (0.0-0.8) 05/05/22 04:20 Eosinophils # (Manual) 0.1 K/mm3 (0.0-0.4) 05/05/22 04:20 Basophils # (Manual) 0.0 K/mm3 (0.0-0.1) 05/05/22 04:20 Metamyelocytes # 0.0 K/mm3 05/05/22 04:20 Myelocytes # 0.0 K/mm3 05/05/22 04:20 Promyelocytes # 0.0 K/mm3 05/05/22 04:20 Blast Cells # 0.0 K/mm3 05/05/22 04:20 WBC Morphology Not Reportable 05/05/22 04:20 Hypersegmented Neuts Not Reportable 05/05/22 04:20 Hyposegmented Neuts Not Reportable 05/05/22 04:20 Hypogranular Neuts Not Reportable 05/05/22 04:20 Smudge Cells Not Reportable 05/05/22 04:20 Toxic Granulation Not Reportable 05/05/22 04:20 Toxic Vacuolation Not Reportable 05/05/22 04:20 Dohle Bodies Not Reportable 05/05/22 04:20 Pelger-Huet Anomaly Not Reportable 05/05/22 04:20 Ubaldo Rods Not Reportable 05/05/22 04:20 Platelet Estimate Consistent w auto 05/05/22 04:20 Clumped Platelets Not Reportable 05/05/22 04:20 Plt Clumps, EDTA Not Reportable 05/05/22 04:20 Large Platelets Not Reportable 05/05/22 04:20 Giant Platelets Not Reportable 05/05/22 04:20 Platelet Satelliting Not Reportable 05/05/22 04:20 Plt Morphology Comment Not Reportable 05/05/22 04:20 RBC Morphology Not Reportable 05/05/22 04:20 Dimorphic RBCs Not Reportable 05/05/22 04:20 Polychromasia Not Reportable 05/05/22 04:20 Hypochromasia 2+ 05/05/22 04:20 Poikilocytosis Not Reportable 05/05/22 04:20 Anisocytosis 1+ 05/05/22 04:20 Microcytosis Not Reportable 05/05/22 04:20 Macrocytosis Not Reportable 05/05/22 04:20 Spherocytes Not Reportable 05/05/22 04:20 Pappenheimer Bodies Not Reportable 05/05/22 04:20 Sickle Cells Not Reportable 05/05/22 04:20 Target Cells Not Reportable 05/05/22 04:20 Tear Drop Cells Not Reportable 05/05/22 04:20 Ovalocytes Not Reportable 05/05/22 04:20 Helmet Cells Not Reportable 05/05/22 04:20 Rangel-Lastrup Bodies Not Reportable 05/05/22 04:20 [place] Rings Not Reportable 05/05/22 04:20 Stacey Cells Not Reportable 05/05/22 04:20 Bite Cells Not Reportable 05/05/22 04:20 Crenated Cell Not Reportable 05/05/22 04:20 Elliptocytes Not Reportable 05/05/22 04:20 Acanthocytes (Spur) Not Reportable 05/05/22 04:20 Rouleaux Not Reportable 05/05/22 04:20 Hemoglobin C Crystals Not Reportable 05/05/22 04:20 Schistocytes Not Reportable 05/05/22 04:20 Malaria parasites Not Reportable 05/05/22 04:20 Torrey Bodies Not Reportable 05/05/22 04:20 Hem Pathologist Commnt No 05/05/22 04:20 PT 17.6 Sec. (12.2-14.9) H 05/04/22 04:26 INR 1.29 (0.87-1.13) H 05/04/22 04:26 APTT 39.4 Sec. (24.2-36.6) H 05/03/22 04:24 Heparin Anti-Xa Level < 0.10 U.I./ml (0.3-0.7) L 04/24/22 10:20 ABG pH 7.421 pH Units (7.350-7.450) 05/08/22 21:00 ABG pCO2 42.4 mm Hg 05/08/22 21:00 ABG pO2 68.8 mm Hg (80.0-90.0) L 05/08/22 21:00 ABG HCO3 27.0 mmol/L (20.0-26.0) H 05/08/22 21:00 ABG O2 Saturation 95.7 % (95.0-99.0) 05/08/22 21:00 ABG O2 Content 11.1 (0.0-44) 05/08/22 21:00 ABG Base Excess 2.3 mmol/L (-2.0-3.0) 05/08/22 21:00 ABG Hemoglobin 8.4 gm/dl (12.0-16.0) L 05/08/22 21:00 ABG Carboxyhemoglobin 1.8 % (0.0-5.0) 05/08/22 21:00 ABG Methemoglobin 0.5 % (0.0-1.5) 05/08/22 21:00 Oxyhemoglobin 93.4 % (95.0-99.0) L 05/08/22 21:00 FiO2 30 % 05/08/22 21:00 Sodium 132 mmol/L (137-145) L 05/09/22 04:25 Potassium 3.5 mmol/L (3.6-5.0) L 05/09/22 04:25 Chloride 93.7 mmol/L (98-107) L 05/09/22 04:25 Carbon Dioxide 25 mmol/L (22-30) 05/09/22 04:25 Anion Gap 17 mmol/L 05/09/22 04:25 BUN 42 mg/dL (7-17) H 05/09/22 04:25 Creatinine 3.0 mg/dL (0.6-1.2) H 05/09/22 04:25 Estimated GFR 19 ml/min 05/09/22 04:25 BUN/Creatinine Ratio 14 % 05/09/22 04:25 Glucose 145 mg/dL (65-100) H 05/09/22 04:25 POC Glucose 139 mg/dL (70-105) H 05/11/22 05:13 Lactic Acid 1.60 mmol/L (0.7-2.0) 04/19/22 07:14 Calcium 8.7 mg/dL (8.4-10.2) 05/09/22 04:25 Phosphorus 3.00 mg/dL (2.5-4.5) D 05/09/22 04:25 Magnesium 1.80 mg/dL (1.7-2.3) 05/09/22 04:25 Total Bilirubin 0.30 mg/dL (0.1-1.2) 04/20/22 05:30 AST 11 units/L (5-40) 04/20/22 05:30 ALT 7 units/L (7-56) 04/20/22 05:30 Alkaline Phosphatase 101 units/L (35-129) 04/20/22 05:30 Ammonia 25.0 umol/L (25-60) 04/19/22 04:53 Lactate Dehydrogenase 142 units/L (91-180) 05/09/22 04:25 Troponin T 0.415 ng/mL (0.00-0.029) H* 04/19/22 04:53 Total Protein 6.4 g/dL (6.3-8.2) 04/20/22 05:30 Albumin 2.4 g/dL (3.9-5) L 04/20/22 05:30 Albumin/Globulin Ratio 0.6 % 04/20/22 05:30 Procalcitonin 42.42 ng/mL (<0.15) 05/05/22 04:20 TSH 1.700 mlU/mL (0.270-4.200) 04/19/22 04:53 Free T4 0.28 ng/dL (0.76-1.46) L 04/19/22 04:53 Total Cortisol 24.4 mcg/dL () 04/27/22 04:45 Fluid Type Pleural 05/09/22 Unknown Fluid Color Yellow 05/09/22 Unknown Fluid Appearance Clear 05/09/22 Unknown Fluid WBC 21 /mm3 05/09/22 Unknown Fluid RBC 12 /mm3 05/09/22 Unknown Fluid Seg Neutrophils 60.0 % 05/09/22 Unknown Fluid Lymphocytes 11.0 % 05/09/22 Unknown Fluid Monocytes 29.0 % 05/09/22 Unknown Random Vancomycin 20.0 ug/mL (0-40.0) 05/11/22 03:56 Coronavirus (PCR) Negative (Negative) 05/03/22 11:30 Hepatitis A IgM Ab Non-reactive (NonReactive) 04/19/22 04:53 Hep Bs Antigen Non-reactive (Negative) 04/19/22 04:53 Hep B Core IgM Ab Non-reactive (NonReactive) 04/19/22 04:53 Hepatitis C Antibody Non-reactive (NonReactive) 04/19/22 04:53 Blood Type A POSITIVE 05/04/22 05:30 Antibody Screen Negative 05/04/22 05:30 Crossmatch See Detail 05/04/22 05:30 Cleary/IV: Voiding Method Diaper Active Medications - Current Medications Current Medications: Generic Name Dose Route Start Last Admin Trade Name Freq PRN Reason Stop Dose Admin Acetaminophen 650 mg 04/22/22 20:12 05/03/22 23:41 Acetaminophen 325 Mg/10.15 Ml Oral Liqd Unit Dose PO 650 mg Q6H PRN Administration Pain MILD(1-3)/Fever >100.5/DRAKE Albumin Human 25 gm 04/21/22 13:00 04/22/22 16:31 Albumin Human 25% (25 Gm/100 Ml) Inj IV 25 gm BIANCA PRN Administration Hypotension Albuterol 2.5 mg 04/21/22 08:30 04/24/22 16:51 Albuterol 2.5 Mg/3 Ml Nebu IH 2.5 mg Q3HRT PRN Administration Shortness Of Breath Albuterol/Ipratropium 1 ampul 04/21/22 14:00 05/11/22 08:38 Ipratropium/Albuterol Sulfate 3 Ml Ampul.Neb IH 1 ampul TIDRT CONNOR Administration Docusate Sodium 100 mg 05/01/22 22:00 05/11/22 09:28 Docusate Sodium 100 Mg/10 Ml Oral Liqd FEEDTUBE Not Given BID CONNOR Epoetin Lb-epbx 20,000 unit 04/23/22 12:00 05/09/22 14:58 Epoetin Lb-Epbx 20,000 Unit/1 Ml Vial IV 20,000 unit BIANCA PRN Administration HEMODIALYSIS Fentanyl 50 mcg 05/03/22 10:29 05/05/22 12:23 Fentanyl 100 Mcg/2 Ml Inj IV 25 mcg Q10MIN PRN Administration ANALGESIA Sodium Chloride 100 mls @ 999 mls/hr 04/22/22 09:12 Nacl 0.9% IV BIANCA PRN Hypotension Fentanyl Citrate 2,000 mcg in 100 mls @ 2.722 mls/hr 05/03/22 11:00 Fentanyl Drip Premix IV TITR CONNOR Protocol 1 MCG/KG/HR NORepinephrine/NS 8 MG-250 ML 8 mg in 250 mls @ 3.75 mls/hr 05/03/22 13:15 05/06/22 10:06 Norepinephrine/Ns 8 Mg-250 Ml (Double Conc) IV 0 mcg/min TITRATE CONNOR 0 mls/hr Titration Protocol 2 MCG/MIN Vasopressin 20 unit/ Sodium 101 mls @ 9.09 mls/hr 05/04/22 00:30 05/06/22 11:21 Chloride IV 0 units/min TITR CONNOR 0 mls/hr Infusion 0.03 UNITS/MIN Vancomycin HCl 750 mg/ Sodium 265 mls @ 166.667 mls/hr 05/09/22 22:00 05/09/22 21:27 Chloride IV 05/15/22 21:59 166.667 mls/hr TuThSa CONNOR Administration Lansoprazole 30 mg 04/23/22 10:00 05/11/22 09:12 Lansoprazole 30 Mg Solutab FEEDTUBE 30 mg QDAY CONNOR Administration Lorazepam 0.5 mg 04/25/22 09:59 Lorazepam 0.5 Mg Tab FEEDTUBE QDAY PRN Anxiety Memantine 5 mg 04/25/22 10:00 05/11/22 09:12 Memantine 5 Mg Tab FEEDTUBE 5 mg BID CONNOR Administration Metoclopramide HCl 5 mg 04/19/22 09:55 Metoclopramide 10 Mg/2 Ml Inj IV Q6H PRN Nausea And Vomiting Midodrine 20 mg 04/26/22 14:00 05/11/22 09:11 Midodrine 10 Mg Tab FEEDTUBE 20 mg TID CONNOR Administration Naloxone HCl 0.1 mg 04/19/22 09:55 Naloxone 0.4 Mg/1 Ml Inj IV Q2MIN PRN Res Rate </= 8 or 02 SAT < 92% Polyethylene Glycol 17 gm 05/03/22 10:00 05/11/22 09:28 Polyethylene Glycol 3350 17 Gm Powder FEEDTUBE Not Given QDAY CONNOR Risperidone 0.5 mg 04/25/22 11:00 05/11/22 09:12 Risperidone 1 Mg Tab FEEDTUBE 0.5 mg BID CONNOR Administration Scopolamine 1 each 05/02/22 10:00 05/11/22 09:13 Scopolamine Transdermal Patch 72 Hr TD 1 each Q3D CONNOR Administration Senna 17.2 mg 04/23/22 10:00 05/11/22 09:28 Sennosides 8.6 Mg Tab FEEDTUBE Not Given BID CONNOR Sodium Chloride 10 ml 04/19/22 12:00 05/11/22 09:11 Sodium Chloride 0.9% 10 Ml Flush Syringe IV 10 ml BID CONNOR Administration Sodium Chloride 10 ml 04/19/22 11:19 Sodium Chloride 0.9% 10 Ml Flush Syringe IV PRN PRN LINE FLUSH Valproic Acid 750 mg 04/22/22 22:00 05/11/22 09:11 Valproic Acid 250 Mg/5 Ml Oral Liqd FEEDTUBE 750 mg BID CONNOR Administration Nutrition/Malnutrition Assess - Dietary Evaluation Nutrition/Malnutrition Findings: Nutrition Notes Start: 04/19/22 17:39 Freq: Status: Active Protocol: Document 05/05/22 14:44 [facility] (Rec: 05/05/22 14:55 [facility] [id number]) Nutrition Notes Initial or Follow up Reassessment Current Diagnosis CKD (stage V CKD),Sepsis, Respiratory Failure Other Pertinent Diagnosis Neurogenic dysphagia, metabolic encephalopathy, vascular dementia Current Diet No diet order in chart Labs/Tests Na 130 K 3.3 BUN 24 Cr 2.3 BG 163 Phos 1.5 Pertinent Medications Colace, Senokot, Miralax, Levophed gtt, Vasopressin gtt Height 5 ft 2 in Weight 54.43 kg [place] Body Weight (kg) 50.00 BMI 21.9 Weight Status Appropriate Subjective/Other Information PEG placed yesterday. Pt remains on vent and HD support . Observed Nepro infusing at 30ml/hr. No BM documented today. Bronchoscopy performed today. Percent of energy/protein needs met: 104% energy 90% pro Burn Absent Trauma Absent #1 Nutrition Diagnosis Inadequate oral intake, Swallowing difficulty Diagnosis Progress(for reassessment Continues documentation) Is patient on ventilator? Yes Is Patient Ambulatory and/or Out of Bed No REE-([facility]-confined to bed) [phone] Calculation Used for Recommendations [facility] Additional Notes Pro needs >1.2g/kg: >65g/day Fluid needs 1-1.5L/day Nutrition Intervention Nutrition Support: Continue Nepro at 30ml/hr with 130ml water flush q4h. Kcal 1,296 Protein (gm) 58 Carbohydrates (gm) 116 Fat (gm) 69 Fluid (mL) 523 Fiber (gm) 9 Goal #1 TF tolerance Goal #2 TF to meet at least 75% energy and pro needs Follow-Up By: 05/12/22 Additional Comments F/U: stable TF, vent status, wt, BM <AMAURY KIM - Last Filed: 05/12/22 14:26> History Interval history: I saw and evaluated the patient. Discussed with the nurse practitioner and agree with their findings and plan as documented in this note. Hospitalist Physical - Constitutional Vitals: Temp Pulse Resp BP Pulse Ox 99.2 F 85 14 123/52 100 05/12/22 11:38 05/12/22 14:01 05/12/22 14:01 05/12/22 14:01 05/12/22 14:01 HEART Score - HEART Score Troponin: Troponin T 0.415 ng/mL (0.00-0.029) H* 04/19/22 04:53 Results - Labs CBC & Chem 7: 05/12/22 04:11 05/12/22 06:00 Labs: Laboratory Last Values WBC 18.0 K/mm3 (4.5-11.0) H 05/12/22 04:11 RBC 2.56 M/mm3 (3.65-5.03) L 05/12/22 04:11 Hgb 7.2 gm/dl (10.1-14.3) L 05/12/22 04:11 Hct 23.2 % (30.3-42.9) L 05/12/22 04:11 MCV 90 fl (79-97) 05/12/22 04:11 MCH 28 pg (28-32) 05/12/22 04:11 MCHC 31 % (30-34) 05/12/22 04:11 RDW 16.4 % (13.2-15.2) H 05/12/22 04:11 Plt Count 196 K/mm3 (140-440) 05/12/22 04:11 Lymph % (Auto) 7.8 % (13.4-35.0) L 05/12/22 04:11 [place] % (Auto) 14.2 % (0.0-7.3) H 05/12/22 04:11 Eos % (Auto) 0.5 % (0.0-4.3) 05/12/22 04:11 Baso % (Auto) 0.4 % (0.0-1.8) 05/12/22 04:11 Lymph # (Auto) 1.4 K/mm3 (1.2-5.4) 05/12/22 04:11 [place] # (Auto) 2.5 K/mm3 (0.0-0.8) H 05/12/22 04:11 Eos # (Auto) 0.1 K/mm3 (0.0-0.4) 05/12/22 04:11 Baso # (Auto) 0.1 K/mm3 (0.0-0.1) 05/12/22 04:11 Add Manual Diff Complete 05/05/22 04:20 Total Counted 100 05/05/22 04:20 Seg Neutrophils % 77.1 % (40.0-70.0) H 05/12/22 04:11 Seg Neuts % (Manual) 86.0 % (40.0-70.0) H 05/05/22 04:20 Band Neutrophils % 3.0 % 05/05/22 04:20 Lymphocytes % (Manual) 4.0 % (13.4-35.0) L 05/05/22 04:20 Reactive Lymphs % (Man) 0 % 05/05/22 04:20 Monocytes % (Manual) 6.0 % (0.0-7.3) 05/05/22 04:20 Eosinophils % (Manual) 1.0 % (0.0-4.3) 05/05/22 04:20 Basophils % (Manual) 0 % (0.0-1.8) 05/05/22 04:20 Metamyelocytes % 0 % 05/05/22 04:20 Myelocytes % 0 % 05/05/22 04:20 Promyelocytes % 0 % 05/05/22 04:20 Blast Cells % 0 % 05/05/22 04:20 Nucleated RBC % 1.0 % (0.0-0.9) H 05/05/22 04:20 Seg Neutrophils # 13.9 K/mm3 (1.8-7.7) H 05/12/22 04:11 Seg Neutrophils # Man 11.0 K/mm3 (1.8-7.7) H 05/05/22 04:20 Band Neutrophils # 0.4 K/mm3 05/05/22 04:20 Lymphocytes # (Manual) 0.5 K/mm3 (1.2-5.4) L 05/05/22 04:20 Abs React Lymphs (Man) 0.0 K/mm3 05/05/22 04:20 Monocytes # (Manual) 0.8 K/mm3 (0.0-0.8) 05/05/22 04:20 Eosinophils # (Manual) 0.1 K/mm3 (0.0-0.4) 05/05/22 04:20 Basophils # (Manual) 0.0 K/mm3 (0.0-0.1) 05/05/22 04:20 Metamyelocytes # 0.0 K/mm3 05/05/22 04:20 Myelocytes # 0.0 K/mm3 05/05/22 04:20 Promyelocytes # 0.0 K/mm3 05/05/22 04:20 Blast Cells # 0.0 K/mm3 05/05/22 04:20 WBC Morphology Not Reportable 05/05/22 04:20 Hypersegmented Neuts Not Reportable 05/05/22 04:20 Hyposegmented Neuts Not Reportable 05/05/22 04:20 Hypogranular Neuts Not Reportable 05/05/22 04:20 Smudge Cells Not Reportable 05/05/22 04:20 Toxic Granulation Not Reportable 05/05/22 04:20 Toxic Vacuolation Not Reportable 05/05/22 04:20 Dohle Bodies Not Reportable 05/05/22 04:20 Pelger-Huet Anomaly Not Reportable 05/05/22 04:20 Ubaldo Rods Not Reportable 05/05/22 04:20 Platelet Estimate Consistent w auto 05/05/22 04:20 Clumped Platelets Not Reportable 05/05/22 04:20 Plt Clumps, EDTA Not Reportable 05/05/22 04:20 Large Platelets Not Reportable 05/05/22 04:20 Giant Platelets Not Reportable 05/05/22 04:20 Platelet Satelliting Not Reportable 05/05/22 04:20 Plt Morphology Comment Not Reportable 05/05/22 04:20 RBC Morphology Not Reportable 05/05/22 04:20 Dimorphic RBCs Not Reportable 05/05/22 04:20 Polychromasia Not Reportable 05/05/22 04:20 Hypochromasia 2+ 05/05/22 04:20 Poikilocytosis Not Reportable 05/05/22 04:20 Anisocytosis 1+ 05/05/22 04:20 Microcytosis Not Reportable 05/05/22 04:20 Macrocytosis Not Reportable 05/05/22 04:20 Spherocytes Not Reportable 05/05/22 04:20 Pappenheimer Bodies Not Reportable 05/05/22 04:20 Sickle Cells Not Reportable 05/05/22 04:20 Target Cells Not Reportable 05/05/22 04:20 Tear Drop Cells Not Reportable 05/05/22 04:20 Ovalocytes Not Reportable 05/05/22 04:20 Helmet Cells Not Reportable 05/05/22 04:20 Rangel-Lastrup Bodies Not Reportable 05/05/22 04:20 [place] Rings Not Reportable 05/05/22 04:20 Mason Cells Not Reportable 05/05/22 04:20 Bite Cells Not Reportable 05/05/22 04:20 Crenated Cell Not Reportable 05/05/22 04:20 Elliptocytes Not Reportable 05/05/22 04:20 Acanthocytes (Spur) Not Reportable 05/05/22 04:20 Rouleaux Not Reportable 05/05/22 04:20 Hemoglobin C Crystals Not Reportable 05/05/22 04:20 Schistocytes Not Reportable 05/05/22 04:20 Malaria parasites Not Reportable 05/05/22 04:20 Torrey Bodies Not Reportable 05/05/22 04:20 Hem Pathologist Commnt No 05/05/22 04:20 PT 15.4 Sec. (12.2-14.9) H 05/12/22 04:11 INR 1.09 (0.87-1.13) 05/12/22 04:11 APTT 39.4 Sec. (24.2-36.6) H 05/03/22 04:24 Heparin Anti-Xa Level < 0.10 U.I./ml (0.3-0.7) L 04/24/22 10:20 ABG pH 7.421 pH Units (7.350-7.450) 05/08/22 21:00 ABG pCO2 42.4 mm Hg 05/08/22 21:00 ABG pO2 68.8 mm Hg (80.0-90.0) L 05/08/22 21:00 ABG HCO3 27.0 mmol/L (20.0-26.0) H 05/08/22 21:00 ABG O2 Saturation 95.7 % (95.0-99.0) 05/08/22 21:00 ABG O2 Content 11.1 (0.0-44) 05/08/22 21:00 ABG Base Excess 2.3 mmol/L (-2.0-3.0) 05/08/22 21:00 ABG Hemoglobin 8.4 gm/dl (12.0-16.0) L 05/08/22 21:00 ABG Carboxyhemoglobin 1.8 % (0.0-5.0) 05/08/22 21:00 ABG Methemoglobin 0.5 % (0.0-1.5) 05/08/22 21:00 Oxyhemoglobin 93.4 % (95.0-99.0) L 05/08/22 21:00 FiO2 30 % 05/08/22 21:00 Sodium 133 mmol/L (137-145) L 05/12/22 06:00 Potassium 4.2 mmol/L (3.6-5.0) 05/12/22 06:00 Chloride 94.1 mmol/L (98-107) L 05/12/22 06:00 Carbon Dioxide 27 mmol/L (22-30) 05/12/22 06:00 Anion Gap 16 mmol/L 05/12/22 06:00 BUN 29 mg/dL (7-17) H 05/12/22 06:00 Creatinine 2.4 mg/dL (0.6-1.2) H 05/12/22 06:00 Estimated GFR 24 ml/min 05/12/22 06:00 BUN/Creatinine Ratio 12 % 05/12/22 06:00 Glucose 145 mg/dL (65-100) H 05/12/22 06:00 POC Glucose 122 mg/dL (70-105) H 05/12/22 05:03 Lactic Acid 1.60 mmol/L (0.7-2.0) 04/19/22 07:14 Calcium 8.7 mg/dL (8.4-10.2) 05/12/22 06:00 Phosphorus 3.00 mg/dL (2.5-4.5) D 05/09/22 04:25 Magnesium 1.80 mg/dL (1.7-2.3) 05/09/22 04:25 Total Bilirubin 0.30 mg/dL (0.1-1.2) 05/12/22 06:00 AST 24 units/L (5-40) 05/12/22 06:00 ALT 7 units/L (7-56) 05/12/22 06:00 Alkaline Phosphatase 332 units/L (35-129) H 05/12/22 06:00 Ammonia 25.0 umol/L (25-60) 04/19/22 04:53 Lactate Dehydrogenase 142 units/L (91-180) 05/09/22 04:25 Troponin T 0.415 ng/mL (0.00-0.029) H* 04/19/22 04:53 Total Protein 4.8 g/dL (6.3-8.2) L 05/12/22 06:00 Albumin 2.0 g/dL (3.9-5) L 05/12/22 06:00 Albumin/Globulin Ratio 0.7 % 05/12/22 06:00 Procalcitonin 42.42 ng/mL (<0.15) 05/05/22 04:20 TSH 1.700 mlU/mL (0.270-4.200) 04/19/22 04:53 Free T4 0.28 ng/dL (0.76-1.46) L 04/19/22 04:53 Total Cortisol 24.4 mcg/dL () 04/27/22 04:45 Fluid Type Pleural 05/09/22 Unknown Fluid Color Yellow 05/09/22 Unknown Fluid Appearance Clear 05/09/22 Unknown Fluid WBC 21 /mm3 05/09/22 Unknown Fluid RBC 12 /mm3 05/09/22 Unknown Fluid Seg Neutrophils 60.0 % 05/09/22 Unknown Fluid Lymphocytes 11.0 % 05/09/22 Unknown Fluid Monocytes 29.0 % 05/09/22 Unknown Random Vancomycin 20.0 ug/mL (0-40.0) 05/11/22 03:56 Coronavirus (PCR) Negative (Negative) 05/03/22 11:30 Hepatitis A IgM Ab Non-reactive (NonReactive) 04/19/22 04:53 Hep Bs Antigen Non-reactive (Negative) 04/19/22 04:53 Hep B Core IgM Ab Non-reactive (NonReactive) 04/19/22 04:53 Hepatitis C Antibody Non-reactive (NonReactive) 04/19/22 04:53 Blood Type A POSITIVE 05/12/22 06:07 Antibody Screen Negative 05/12/22 06:07 Crossmatch See Detail 05/12/22 06:07 Microbiology: Microbiology 05/09/22 Unknown Other (Please Specify:) - Pleura Body Fluid Culture - Preliminary Cleary/IV: Voiding Method Diaper Active Medications - Current Medications Current Medications: Generic Name Dose Route Start Last Admin Trade Name Freq PRN Reason Stop Dose Admin Acetaminophen 650 mg 04/22/22 20:12 05/12/22 09:39 Acetaminophen 325 Mg/10.15 Ml Oral Liqd Unit Dose PO 650 mg Q6H PRN Administration Pain MILD(1-3)/Fever >100.5/DRAKE Albumin Human 25 gm 04/21/22 13:00 04/22/22 16:31 Albumin Human 25% (25 Gm/100 Ml) Inj IV 25 gm BIANCA PRN Administration Hypotension Albuterol 2.5 mg 04/21/22 08:30 04/24/22 16:51 Albuterol 2.5 Mg/3 Ml Nebu IH 2.5 mg Q3HRT PRN Administration Shortness Of Breath Albuterol/Ipratropium 1 ampul 04/21/22 14:00 05/12/22 08:36 Ipratropium/Albuterol Sulfate 3 Ml Ampul.Neb IH 1 ampul TIDRT CONNOR Administration Docusate Sodium 100 mg 05/01/22 22:00 05/12/22 09:25 Docusate Sodium 100 Mg/10 Ml Oral Liqd FEEDTUBE Not Given BID CONNOR Epoetin Lb-epbx 20,000 unit 04/23/22 12:00 05/09/22 14:58 Epoetin Lb-Epbx 20,000 Unit/1 Ml Vial IV 20,000 unit BIANCA PRN Administration HEMODIALYSIS Fentanyl 50 mcg 05/03/22 10:29 05/05/22 12:23 Fentanyl 100 Mcg/2 Ml Inj IV 25 mcg Q10MIN PRN Administration ANALGESIA Sodium Chloride 100 mls @ 999 mls/hr 04/22/22 09:12 Nacl 0.9% IV BIANCA PRN Hypotension Fentanyl Citrate 2,000 mcg in 100 mls @ 2.722 mls/hr 05/03/22 11:00 Fentanyl Drip Premix IV TITR [facility] Protocol 1 MCG/KG/HR Vasopressin 20 unit/ Sodium 101 mls @ 9.09 mls/hr 05/04/22 00:30 05/06/22 11:21 Chloride IV 0 units/min TITR CONNOR 0 mls/hr Infusion 0.03 UNITS/MIN Vancomycin HCl 750 mg/ Sodium 265 mls @ 166.667 mls/hr 05/09/22 22:00 05/12/22 00:34 Chloride IV 05/13/22 21:59 166.667 mls/hr TuThSa CON[facility] Administration NORepinephrine/NS 8 MG-250 ML 8 mg in 250 mls @ 3.75 mls/hr 05/11/22 21:23 05/12/22 12:21 Norepinephrine/Ns 8 Mg-250 Ml (Double Conc) IV 10 mcg/min TITRATE [facility] 18.75 mls/hr Administration Protocol 2 MCG/MIN Cefepime HCl 1 gm in 100 mls @ 200 mls/hr 05/12/22 18:00 Cefepime/Ns 1 Gm/100 Ml IV 05/14/22 18:29 Q24H [facility] Protocol Lansoprazole 30 mg 04/23/22 10:00 05/12/22 09:35 Lansoprazole 30 Mg Solutab FEEDTUBE 30 mg QDAY [facility] Administration Lorazepam 0.5 mg 04/25/22 09:59 Lorazepam 0.5 Mg Tab FEEDTUBE QDAY PRN Anxiety Memantine 5 mg 04/25/22 10:00 05/12/22 09:36 Memantine 5 Mg Tab FEEDTUBE 5 mg BID CONNOR Administration Metoclopramide HCl 5 mg 04/19/22 09:55 Metoclopramide 10 Mg/2 Ml Inj IV Q6H PRN Nausea And Vomiting Midodrine 20 mg 04/26/22 14:00 05/12/22 13:46 Midodrine 10 Mg Tab FEEDTUBE 20 mg TID CONNOR Administration Naloxone HCl 0.1 mg 04/19/22 09:55 Naloxone 0.4 Mg/1 Ml Inj IV Q2MIN PRN Res Rate </= 8 or 02 SAT < 92% Polyethylene Glycol 17 gm 05/03/22 10:00 05/12/22 09:25 Polyethylene Glycol 3350 17 Gm Powder FEEDTUBE Not Given QDAY [facility] Risperidone 0.5 mg 04/25/22 11:00 05/12/22 09:35 Risperidone 1 Mg Tab FEEDTUBE 0.5 mg BID CONNOR Administration Scopolamine 1 each 05/02/22 10:00 05/11/22 09:13 Scopolamine Transdermal Patch 72 Hr TD 1 each Q3D [facility] Administration Senna 17.2 mg 04/23/22 10:00 05/12/22 09:26 Sennosides 8.6 Mg Tab FEEDTUBE Not Given BID [facility] Sodium Chloride 10 ml 04/19/22 12:00 05/12/22 09:35 Sodium Chloride 0.9% 10 Ml Flush Syringe IV 10 ml BID CONNOR Administration Sodium Chloride 10 ml 04/19/22 11:19 Sodium Chloride 0.9% 10 Ml Flush Syringe IV PRN PRN LINE FLUSH Valproic Acid 750 mg 04/22/22 22:00 05/12/22 09:36 Valproic Acid 250 Mg/5 Ml Oral Liqd FEEDTUBE 750 mg BID CONNOR Administration Nutrition/Malnutrition Assess - Dietary Evaluation Nutrition/Malnutrition Findings: Nutrition Notes Start: 04/19/22 17:39 Freq: Status: Active Protocol: Document 05/05/22 14:44 SHILA (Rec: 05/05/22 14:55 SHILA [id number]) Nutrition Notes Initial or Follow up Reassessment Current Diagnosis CKD (stage V CKD),Sepsis, Respiratory Failure Other Pertinent Diagnosis Neurogenic dysphagia, metabolic encephalopathy, vascular dementia Current Diet No diet order in chart Labs/Tests Na 130 K 3.3 BUN 24 Cr 2.3 BG 163 Phos 1.5 Pertinent Medications Colace, Senokot, Miralax, Levophed gtt, Vasopressin gtt Height 5 ft 2 in Weight 54.43 kg [place] Body Weight (kg) 50.00 BMI 21.9 Weight Status Appropriate Subjective/Other Information PEG placed yesterday. Pt remains on vent and HD support . Observed Nepro infusing at 30ml/hr. No BM documented today. Bronchoscopy performed today. Percent of energy/protein needs met: 104% energy 90% pro Burn Absent Trauma Absent #1 Nutrition Diagnosis Inadequate oral intake, Swallowing difficulty Diagnosis Progress(for reassessment Continues documentation) Is patient on ventilator? Yes Is Patient Ambulatory and/or Out of Bed No REE-([facility]-confined to bed) 1244.842 Calculation Used for Recommendations [facility] Additional Notes Pro needs >1.2g/kg: >65g/day Fluid needs 1-1.5L/day Nutrition Intervention Nutrition Support: Continue Nepro at 30ml/hr with 130ml water flush q4h. Kcal 1,296 Protein (gm) 58 Carbohydrates (gm) 116 Fat (gm) 69 Fluid (mL) 523 Fiber (gm) 9 Goal #1 TF tolerance Goal #2 TF to meet at least 75% energy and pro needs Follow-Up By: 05/12/22 Additional Comments F/U: stable TF, vent status, wt, BM
[2022-05-11] MEDS: ACETAMINOPHEN 325 MG/10.15 ML ORAL LIQD UNIT DOSE PO PRN (16:49)
--- NOTE | 2022-05-11 17:11 | Consultation ---
History of Present Illness Consult date: 05/11/22 Reason for consult: other (vent) Chief complaint: vent dependence - History of present illness History of present illness: 66-year-old female with past medical history of hypertension, seizure disorder, end-stage renal disease on hemodialysis who was brought to [facility] on 04/19/2022 from [facility] halfway with altered mental status. Patient started experiencing episodes of desaturation on 05/02/2022 and subsequently was intubated on 05/03/2022 for respiratory failure. Per notes patient unable to clear secretions and unable to be extubated safely. The patient was scheduled to go to LTAC for prolonged vent weaning but no bed available. Therefore tracheostomy is being requested by primary service. Past History Past Medical History: arrhythmia (SVT), dialysis, DVT, ESRD, hypertension, other (See HPI) Past Surgical History: hysterectomy, Other (creation of left arm AVG, repair of left brachial artery pseudoaneurysm with reversed interposition saphenous vein graft, creation of right axillary artery to axillary vein AVG, multiple permacaths) Social history: full code, other (Lives in halfway). denies: smoking, alcohol abuse, prescription drug abuse Family history: other (unable to obtain due to mental status) Medications and Allergies Allergies Allergy/AdvReac Type Severity Reaction Status Date / Time buspirone [From BuSpar] Allergy Unknown Verified 04/18/22 12:22 Penicillins Allergy Rash Verified 04/18/22 12:22 corn AdvReac Unknown Verified 04/18/22 12:22 Home Medications Medication Instructions Recorded Confirmed Last Taken Type Sevelamer Carbonate [Renvela] 0.8 gram PO TIDWM 09/02/20 02/02/22 05/31/21 History HYDROcodone/APAP 5-325 [Howe 1 each PO Q4HR PRN #30 tablet 05/18/21 02/02/22 Unknown Rx 5-325 mg TAB] ALBUTEROL NEB's [Proventil 0.083% 2.5 mg IH Q3HRT PRN #1 nebu 03/03/22 Unknown Rx NEBS] Clopidogrel [Plavix] 75 mg PO QDAY #90 tablet 03/03/22 Unknown Rx Divalproex [Sarina Dr] 750 mg PO BID #60 tablet 03/03/22 Unknown Rx LORazepam [Ativan] 1 mg PO DAILY #30 tab 03/03/22 Unknown Rx Memantine Xr [Namenda Xr] 5 mg PO DAILY #30 cap 03/03/22 Unknown Rx Midodrine [Proamatine] 10 mg PO TID #90 tab 03/03/22 Unknown Rx Pantoprazole [Protonix TAB] 40 mg PO DAILY #30 tab 03/03/22 Unknown Rx QUEtiapine [SEROquel] 400 mg PO BID #60 tab 03/03/22 Unknown Rx risperiDONE [RisperDAL] 0.5 mg PO BID #60 tab 03/03/22 Unknown Rx Active Meds: Active Medications Acetaminophen (Acetaminophen 325 Mg/10.15 Ml Oral Liqd Unit Dose) 650 mg PO Q6H PRN PRN Reason: Pain MILD(1-3)/Fever >100.5/DRAKE Last Admin: 05/11/22 16:49 Dose: 650 mg Albumin Human (Albumin Human 25% (25 Gm/100 Ml) Inj) 25 gm IV BIANCA PRN PRN Reason: Hypotension Last Admin: 04/22/22 16:31 Dose: 25 gm Albuterol (Albuterol 2.5 Mg/3 Ml Nebu) 2.5 mg IH Q3HRT PRN PRN Reason: Shortness Of Breath Last Admin: 04/24/22 16:51 Dose: 2.5 mg Albuterol/Ipratropium (Ipratropium/Albuterol Sulfate 3 Ml Ampul.Neb) 1 ampul IH TIDRT [facility] Last Admin: 05/11/22 14:30 Dose: 1 ampul Docusate Sodium (Docusate Sodium 100 Mg/10 Ml Oral Liqd) 100 mg FEEDTUBE BID [facility] Last Admin: 05/11/22 09:28 Dose: Not Given Epoetin Lb-epbx (Epoetin Lb-Epbx 20,000 Unit/1 Ml Vial) 20,000 unit IV BIANCA PRN PRN Reason: HEMODIALYSIS Last Admin: 05/09/22 14:58 Dose: 20,000 unit Fentanyl (Fentanyl 100 Mcg/2 Ml Inj) 50 mcg IV Q10MIN PRN PRN Reason: ANALGESIA Last Admin: 05/05/22 12:23 Dose: 25 mcg Sodium Chloride (Nacl 0.9%) 100 mls @ 999 mls/hr IV BIANCA PRN PRN Reason: Hypotension Fentanyl Citrate (Fentanyl Drip Premix) 2,000 mcg in 100 mls @ 2.722 mls/hr IV TITR CONNOR; Protocol NORepinephrine/NS 8 MG-250 ML (Norepinephrine/Ns 8 Mg-250 Ml (Double Conc)) 8 mg in 250 mls @ 3.75 mls/hr IV TITRATE CONNOR; Protocol Last Titration: 05/06/22 10:06 Dose: 0 mcg/min, 0 mls/hr Vasopressin 20 unit/ Sodium (Chloride) 101 mls @ 9.09 mls/hr IV TITR CONNOR Last Infusion: 05/06/22 11:21 Dose: 0 units/min, 0 mls/hr Vancomycin HCl 750 mg/ Sodium (Chloride) 265 mls @ 166.667 mls/hr IV TuThSa [facility] Stop: 05/15/22 21:59 Last Admin: 05/09/22 21:27 Dose: 166.667 mls/hr Lansoprazole (Lansoprazole 30 Mg Solutab) 30 mg FEEDTUBE QDAY [facility] Last Admin: 05/11/22 09:12 Dose: 30 mg Lorazepam (Lorazepam 0.5 Mg Tab) 0.5 mg FEEDTUBE QDAY PRN PRN Reason: Anxiety Memantine (Memantine 5 Mg Tab) 5 mg FEEDTUBE BID [facility] Last Admin: 05/11/22 09:12 Dose: 5 mg Metoclopramide HCl (Metoclopramide 10 Mg/2 Ml Inj) 5 mg IV Q6H PRN PRN Reason: Nausea And Vomiting Midodrine (Midodrine 10 Mg Tab) 20 mg FEEDTUBE TID [facility] Last Admin: 05/11/22 14:25 Dose: 20 mg Naloxone HCl (Naloxone 0.4 Mg/1 Ml Inj) 0.1 mg IV Q2MIN PRN PRN Reason: Res Rate </= 8 or 02 SAT < 92% Polyethylene Glycol (Polyethylene Glycol 3350 17 Gm Powder) 17 gm FEEDTUBE QDAY [facility] Last Admin: 05/11/22 09:28 Dose: Not Given Risperidone (Risperidone 1 Mg Tab) 0.5 mg FEEDTUBE BID [facility] Last Admin: 05/11/22 09:12 Dose: 0.5 mg Scopolamine (Scopolamine Transdermal Patch 72 Hr) 1 each TD Q3D [facility] Last Admin: 05/11/22 09:13 Dose: 1 each Senna (Sennosides 8.6 Mg Tab) 17.2 mg FEEDTUBE BID [facility] Last Admin: 05/11/22 09:28 Dose: Not Given Sodium Chloride (Sodium Chloride 0.9% 10 Ml Flush Syringe) 10 ml IV BID [facility] Last Admin: 05/11/22 09:11 Dose: 10 ml Sodium Chloride (Sodium Chloride 0.9% 10 Ml Flush Syringe) 10 ml IV PRN PRN PRN Reason: LINE FLUSH Valproic Acid (Valproic Acid 250 Mg/5 Ml Oral Liqd) 750 mg FEEDTUBE BID [facility] Last Admin: 05/11/22 09:11 Dose: 750 mg Review of Systems ROS unobtainable: due to endotracheal tube, due to mental status Exam Vital Signs Pulse Resp Pulse Ox 106 H 19 94 04/19/22 04:36 04/19/22 04:36 04/19/22 04:36 Narrative exam: Gen.: On ventilator. opens eyes to verbal and tactile stimulus. ENT: ET tube in place. trachea midline. No lymphadenopathy. No scleral icterus or conjunctival pallor CV: S1, S2 present Respiratory: No audible wheezes Abdomen: Soft, nondistended, nontender. PEG. No rebound, rigidity, guarding Extremities: No clubbing, cyanosis, edema Results - Labs 05/09/22 04:25 05/09/22 04:25 Abnormal lab results 05/11/22 05/11/22 Range/Units 00:56 05:13 POC Glucose 179 H 139 H (70-105) mg/dL - Imaging Chest x-ray: report reviewed, image reviewed Assessment and Plan 66 yo F with VDRF Vent: Fio2: 30%, PEEP 6 COVID-negative Plan: 1. Vent management per ICU team 2. Hold tube feeds after midnight tonight 3. Discussed tracheostomy procedure with the patient's son Raymundo Randolph over the telephone. All risks, benefits, alternatives to surgery discussed and qu estions answered. He is agreeable to proceed. Consent obtained. Patient added to the OR for tomorrow morning. Thank you for this consultation. Please call with any questions or concerns. Evaluation and treatment of this patient was during the time of the national and state emergency arising from COVID19 coronavirus pandemic. Treatment and procedures performed meet the current and available best practice and guidelines for patient during the COVID pandemic.
--- NOTE | 2022-05-11 18:27 | Progress Note ---
Assessment and Plan Cultures: 04/21/2022 blood culture: No growth 04/21/2022 tracheal aspirate culture: Usual respiratory wyatt 04/22/2022 urine culture: No growth 04/30/2022 blood culture: No growth 04/30/2022 urine culture: No growth 05/02/2022 sputum culture: MRSA 05/02/2022 urine culture: No growth 05/03/2022 COVID-19 PCR: Positive A/P: 63-year-old male with obesity, hypertension, diabetes, atrial fibrillation was admitted to the hospital on 04/21/2022 with out of hospital cardiac arrest/V. fib arrest with ROSC. He was severely acidotic, placed on pressors, intubated, on mechanical ventilation: #Severe sepsis: Ruled out bacteremia, catheter associated UTI so far. COVID-19 positive. #COVID-19: #S/p [id number] cardiac arrest/V. 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 Creatinine gradually better. #Aspiration pneumonia #Acute hypoxic respiratory failure: On mechanical ventilation. #Acute urinary retention: Has Cleary catheter in place. #Elevated LFTs: RUQ ultrasound showed fatty liver. Recs: -continue steroids for COVID-19. Complete 10 days. -Completed Remdesivir -given fevers and possibility of bacterial infection, not a candidate for Actemra -Continue empiric IV cefepime plan 8 days. -Complete 10 days vancomycin for MRSA in sputum Guero Templeton MD [facility] ([facility]) O: [phone] F: [phone] Subjective Date of service: 05/11/22 Principal diagnosis: Neurogenic Dysphagia Interval history: Febrile to 101.1, no other acute changes. Body fluid culture remains negative. Objective - Exam Narrative Exam: Physical Exam: Constitutional: Alert, cooperative. No acute distress Head, Ears, Nose: Normocephalic, atraumatic. External ears, nose normal Eyes: Conjunctivae/corneas clear. No icterus. No ptosis. Neck: Supple, no meningeal signs Oral: dentition fair, no thrush Cardiovascular: S1, S2 normal. Respiratory: Good air entry, clear to auscultation bilaterally GI: Soft, non-tender; bowel sounds normal. No peritoneal signs. Musculoskeletal: No pedal edema, no cyanosis. Skin: No rash or abscess Hem/Lymphatic: No palpable cervical or supraclavicular nodes. No lymphangitis Psych: Mood ok. Affect normal Neurological: Awake, alert, oriented. No gross abnormality - Constitutional Vitals: Vital Signs Temp Pulse Resp BP Pulse Ox 101.1 F H 109 H 13 103/46 98 05/11/22 16:00 05/11/22 18:00 05/11/22 18:00 05/11/22 18:00 05/11/22 18:00 Temperature -Last 24 Hours Temperature 101.1 F Temperature 99.3 F Temperature 99.5 F Temperature 98.3 F Temperature 100.1 F Temperature 99.6 F Temperature 99.1 F Temperature 99 F - Labs CBC & Chem 7: 05/09/22 04:25 05/09/22 04:25 Labs: Abnormal lab results 05/11/22 05/11/22 Range/Units 00:56 05:13 POC Glucose 179 H 139 H (70-105) mg/dL
[2022-05-11] MEDS: NORepinephrine/NS 8 MG-250 ML 8 MG/250 ML INFUS..BTL IV SCH (21:36)
[2022-05-12] MEDS: VANCOMYCIN 750 MG in SODIUM CHLORIDE 0.9% 250ML 250 ML IV SCH (00:34)
[2022-05-12 04:43] LABS: Basophils # (Auto) 0.1 K/mm3 (0.0-0.1); Basophils % (Auto) 0.4 % (0.0-1.8); Eosinophils # (Auto) 0.1 K/mm3 (0.0-0.4); Eosinophils % (Auto) 0.5 % (0.0-4.3); Hematocrit 23.2 % (30.3-42.9); Hemoglobin 7.2 gm/dl (10.1-14.3); Lymphocytes # (Auto) 1.4 K/mm3 (1.2-5.4); Lymphocytes % (Auto) 7.8 % (13.4-35.0); Mean Corpuscular HGB Conc 31 % (30-34); Mean Corpuscular Volume 90 fl (79-97); Monocytes # (Auto) 2.5 K/mm3 (0.0-0.8); Monocytes % (Auto) 14.2 % (0.0-7.3); Platelet Count 196 K/mm3 (140-440); Red Blood Count 2.56 M/mm3 (3.65-5.03); Red Cell Distribution Width 16.4 % (13.2-15.2)
[2022-05-12 04:49] LABS: INR 1.09 (0.87-1.13)
[2022-05-12] MEDS ORDERED: SODIUM CHLORIDE 0.9% 500 ML 500 ML IV ONE (05:24)
[2022-05-12 06:31] LABS: Calcium 8.7 mg/dL (8.4-10.2)
[2022-05-12] MEDS: IPRATROPIUM/ALBUTEROL SULFATE 3 ML AMPUL.NEB IH SCH ×3 (08:36→20:10)
[2022-05-12] MEDS: DOCUSATE SODIUM 100 MG/10 ML ORAL LIQD FEEDTUBE SCH ×2 (09:25→21:06)
[2022-05-12] MEDS: POLYETHYLENE GLYCOL 3350 17 GM POWDER FEEDTUBE SCH (09:25)
[2022-05-12] MEDS: SENNOSIDES 8.6 MG TAB FEEDTUBE SCH ×2 (09:26→21:06)
[2022-05-12] MEDS: MIDODRINE 10 MG TAB FEEDTUBE SCH ×3 (09:35→21:00)
[2022-05-12] MEDS: LANSOPRAZOLE 30 MG SOLUTAB FEEDTUBE SCH (09:35)
[2022-05-12] MEDS: risperiDONE 1 MG TAB FEEDTUBE SCH ×2 (09:35→21:05)
[2022-05-12] MEDS: VALPROIC ACID 250 MG/5 ML ORAL LIQD FEEDTUBE SCH ×2 (09:36→21:00)
[2022-05-12] MEDS: MEMANTINE 5 MG TAB FEEDTUBE SCH ×2 (09:36→21:00)
[2022-05-12] MEDS: ACETAMINOPHEN 325 MG/10.15 ML ORAL LIQD UNIT DOSE PO PRN ×2 (09:39→23:29)
--- NOTE | 2022-05-12 10:19 | Progress Note ---
Assessment and Plan 66 yo F with VDRF Vent: Fio2: 30%, PEEP 6 COVID-negative Plan: 1. Vent management per ICU team 2. May resume TF 3. Wean pressors as josé miguel 4. transfuse as needed 5. Will place procedure on hold as patient currently not hemodynamically stable enough to undergo anesthesia for elective trach. Discussed with anesthesia and notified Carloz Moya NP. 6. Will reassess patient over next 48 hours, if BP stabilized, will plan for trach on Sunday. Call placed to patient's son Raymundo Randolph @ but goes to - left Thank you. Please call with any questions or concerns. Evaluation and treatment of this patient was during the time of the national and state emergency arising from COVID19 coronavirus pandemic. Treatment and procedures performed meet the current and available best practice and guidelines for patient during the COVID pandemic. Subjective Date of service: 05/12/22 Narrative: Pt seen and examined. Became hypotensive overnight and pressors initiated. Tm 101. Objective Vital Signs - 12hr 05/11/22 05/12/22 05/12/22 23:00 00:00 00:05 Temperature 98.8 F Pulse Rate 88 83 88 Pulse Rate [ Anterior Bilateral Throughout] Pulse Rate [ From Monitor] Respiratory 14 14 15 Rate Respiratory Rate [Anterior Bilateral Throughout] Blood Pressure 92/35 95/31 O2 Sat by Pulse 100 100 100 Oximetry 05/12/22 05/12/22 05/12/22 00:08 01:00 02:49 Temperature Pulse Rate 95 H 96 H 94 H Pulse Rate [ Anterior Bilateral Throughout] Pulse Rate [ From Monitor] Respiratory 14 14 Rate Respiratory Rate [Anterior Bilateral Throughout] Blood Pressure 106/44 116/52 89/38 O2 Sat by Pulse 99 100 100 Oximetry 05/12/22 05/12/22 05/12/22 03:00 03:20 04:00 Temperature 98.6 F Pulse Rate 93 H 88 111 H Pulse Rate [ Anterior Bilateral Throughout] Pulse Rate [ From Monitor] Respiratory 14 15 20 Rate Respiratory Rate [Anterior Bilateral Throughout] Blood Pressure 106/37 119/50 O2 Sat by Pulse 99 100 97 Oximetry 05/12/22 05/12/22 05/12/22 04:25 05:00 06:00 Temperature Pulse Rate 107 H 102 H 114 H Pulse Rate [ Anterior Bilateral Throughout] Pulse Rate [ From Monitor] Respiratory 3 L 14 14 Rate Respiratory Rate [Anterior Bilateral Throughout] Blood Pressure 104/49 114/45 115/52 O2 Sat by Pulse 97 98 97 Oximetry 05/12/22 05/12/22 05/12/22 06:10 07:01 08:00 Temperature 100.2 F H Pulse Rate 88 101 H 101 H Pulse Rate [ Anterior Bilateral Throughout] Pulse Rate [ 101 H From Monitor] Respiratory 15 14 15 Rate Respiratory Rate [Anterior Bilateral Throughout] Blood Pressure 113/43 113/44 O2 Sat by Pulse 100 98 100 Oximetry 05/12/22 05/12/22 05/12/22 08:11 08:27 08:35 Temperature Pulse Rate 101 H 103 H Pulse Rate [ 113 H Anterior Bilateral Throughout] Pulse Rate [ From Monitor] Respiratory Rate Respiratory 20 Rate [Anterior Bilateral Throughout] Blood Pressure 113/44 O2 Sat by Pulse 99 Oximetry 05/12/22 05/12/22 09:00 10:00 Temperature Pulse Rate 109 H 98 H Pulse Rate [ Anterior Bilateral Throughout] Pulse Rate [ From Monitor] Respiratory 16 14 Rate Respiratory Rate [Anterior Bilateral Throughout] Blood Pressure 116/51 92/33 O2 Sat by Pulse 100 100 Oximetry - General physical appearance Narrative Exam: Gen.: On ventilator. NAD ENT: ET tube in place. trachea midline. No lymphadenopathy. No scleral icterus or conjunctival pallor CV: S1, S2 present Respiratory: No audible wheezes Abdomen: Soft, nondistended, nontender. PEG. No rebound, rigidity, guarding Extremities: No clubbing, cyanosis, edema - Labs 05/12/22 04:11 05/12/22 06:00 Diabetes panel 05/12/22 Range/Units 06:00 Sodium 133 L (137-145) mmol/L Potassium 4.2 (3.6-5.0) mmol/L Chloride 94.1 L (98-107) mmol/L Carbon Dioxide 27 (22-30) mmol/L BUN 29 H (7-17) mg/dL Creatinine 2.4 H (0.6-1.2) mg/dL Glucose 145 H (65-100) mg/dL Calcium 8.7 (8.4-10.2) mg/dL AST 24 (5-40) units/L ALT 7 (7-56) units/L Alkaline Phosphatase 332 H (35-129) units/L Total Protein 4.8 L (6.3-8.2) g/dL Albumin 2.0 L (3.9-5) g/dL Calcium panel 05/12/22 Range/Units 06:00 Calcium 8.7 (8.4-10.2) mg/dL Albumin 2.0 L (3.9-5) g/dL Pituitary panel 05/12/22 Range/Units 06:00 Sodium 133 L (137-145) mmol/L Potassium 4.2 (3.6-5.0) mmol/L Chloride 94.1 L (98-107) mmol/L Carbon Dioxide 27 (22-30) mmol/L BUN 29 H (7-17) mg/dL Creatinine 2.4 H (0.6-1.2) mg/dL Glucose 145 H (65-100) mg/dL Calcium 8.7 (8.4-10.2) mg/dL Adrenal panel 05/12/22 Range/Units 06:00 Sodium 133 L (137-145) mmol/L Potassium 4.2 (3.6-5.0) mmol/L Chloride 94.1 L (98-107) mmol/L Carbon Dioxide 27 (22-30) mmol/L BUN 29 H (7-17) mg/dL Creatinine 2.4 H (0.6-1.2) mg/dL Glucose 145 H (65-100) mg/dL Calcium 8.7 (8.4-10.2) mg/dL Total Bilirubin 0.30 (0.1-1.2) mg/dL AST 24 (5-40) units/L ALT 7 (7-56) units/L Alkaline Phosphatase 332 H (35-129) units/L Total Protein 4.8 L (6.3-8.2) g/dL Albumin 2.0 L (3.9-5) g/dL
[2022-05-12] MEDS: NORepinephrine/NS 8 MG-250 ML 8 MG/250 ML INFUS..BTL IV SCH (12:21)
[2022-05-12] MEDS ORDERED: SODIUM CHLORIDE 0.9% 500 ML 500 ML ONE (12:30)
--- NOTE | 2022-05-12 15:07 | Procedure Note ---
Date of procedure: 05/12/22 Pre-op diagnosis: Acute respiratory failure Post-op diagnosis: same Procedure: Statement of consent: Emergent procedure due to the use of Levophed through peripheral IV, 2 MD consent. See chart for details Triple-lumen catheter was placed in left femoral vein. Sterile technique was utilized. Patient prepped and placed in trendelenburg position. Area prepped with chlorhexidine/ full body drape utilized. Target vessel visualized with ultrasound. Using seldinger technique, a finder needle was used to puncture target vessel. Wire was threaded through the needle, skin was nicked and needle was withdrawn over wire. A dilator was passed over the wire and tract was dilated. A central venous line catheter was threaded over a wire. All three ports withdrew blood and flushed without difficulty with saline. Line sutured in place, biopatch placed and dressed with tegaderm. Pt tolerated procedure well. VS remained stable throughout procedure. (time spent placing line not included in daily critical care time) CCT: 60 mins Anesthesia: local Surgeon: LORRAINE CASTELLANO Estimated blood loss: minimal Pathology: none Condition: critical Disposition: ICU
--- NOTE | 2022-05-12 15:13 | Progress Note ---
Assessment and Plan Assessment and plan: This is a 66-year-old female with HTN, GERD, seizure disorder, vascular dementia, ESRD on HD, chronic hypertension, bipolar, schizophrenia, anxiety admitted with acute hypoxic respiratory failure, acute on chronic hypotension, acute on chronic metabolic encephalopathy and SVT Neuro: h/o vascular dementia, schizophrenia, bipolar, anxiety disorder -Continue home Seroquel at reduced dose -As needed Ativan -Reorientation as needed -Maintain sleep-wake cycle -As needed analgesia -Continue home memantine, respiradol, valproic acid -CT head showed no acute intracranial abnormalities, no significant interval changes -Psych consulted, appreciate recommendations Cardiac: SVT s/p cardioversion, chronic hypotension, NSTEMI type II -Cardiology consulted, appreciate recommendations -Blood pressure monitoring per protocol -vasopressor support with Levophed -Cortisol 24.4 -s/p Fludrocortisone for 4 doses -Midodrine 20mg TID -Echo 01/31/2022-EF 60 to 65%. Doppler flow pattern suggests impaired LV relaxation. Right ventricle systolic function is normal trace aortic regurgitation. Trace mitral regurgitation. -Lipitor, Plavix Respiratory: Acute hypoxic respiratory failure -CCM consulted, appreciate recommendations -Chest ultrasound showed bilateral pleural effusions, right greater than left -05/05 s/p therapeutic bronch at the bedside -Intubated 05/01 for bronch with 7.5 oett at 22 at the lips -ABG abg and CXR noted -AM vent settings: AC Rate 14, TV 450, Peep 6, FiO2 30% -See RT notes for titration -Pulmonary hygiene -SPO2 monitor per protocol -CTA chest with contrast shows large right and moderate-sized left pleural effusions with moderate body wall edema, groundglass pulmonary opacities in the upper lobes likely representing atypical pneumonia, no CT evidence of pulmonary embolism. -Chest US pending GI: Moderate protein calorie malnutrition, dysphagia s/p PEG -GI consulted -s/p peg 05/04 -24 hours + 1131 mL -PPI -TF -BR: Senokot : ESRD on HD -Nephrology consulted, appreciate recommendations -HD per nephrology (TThSat) -Monitor intake and output -Renally dose medications -Avoid nephrotoxic medications -Epogen 3 times daily -Trend BMP ID: Septic Shock (unable to determine status), MRSA PNA -ID consulted, appreciate recommendations -f/u blood culture -8/3 blood cultures x2 NGTD, bronch wash with MRSA -ABX therapy with vanco -Monitor WBC and temperature curve Endo: NAD -Avoid hypoglycemia Heme: Anemia of chronic disease, RIJ thrombus (chronic), leukocytosis -Vascular surgery consulted, appreciate recommendations -no need for heparin gtt per vascular surgery -Trend CBC -Transfuse hemoglobin less than 7 -s/p 3 unit PRBC -h/h 7.2/28 -1 unit prbc -Epogen 3 times daily -SCDs to BLE while in bed The high probability of a clinically significant, sudden or life threatening deterioration of the [multiple] system(s) required my full and direct attention, intervention and personal management. The aggregate critical care time was [60] minutes. This time is in addition to time spent performing reported procedures but includes the following: [x] Data Review and interpretation [x] Patient assessment and monitoring of vital signs [x] Documentation [x] Medication orders and management Disposition Plan: icu Total Time Spent with Patient (Minutes): 60 History Interval history: This is a 66-year-old female with HTN, GERD, seizure disorder, vascular dementia, ESRD on HD (TTS), OA, chronic hypotension, bipolar, schizophrenia, anxiety examined mobility with a resident of [facility] present to the emergency department on 04/19 with altered mental status and for being combative causing her to miss several days of hemodialysis. On presentation patient was found to be more hypertensive than usual and on room air with oxygen saturations in the 90s and she subsequently went into SVT into the 150s requiring cardioversion under conscious sedation. Patient was admitted to the hospital service with acute hypoxic respiratory failure, acute on chronic hypo tension, acute on chronic metabolic encephalopathy, SVT, hyperkalemia, NSTEMI type II to the ICU with consults to [facility], nephrology cardiology and psych. Hospital Course to Date: 04/20: Patient went into Afib with RVR overnight, now on amiodarone gtt per cardio. Patient remains in AFib with RVR this am, HR in the 120-140s. BP marginal on Levophed gtt, currently not a candidate for BB. Midodrine increased to 15mg TID. 2D Echo pending. On heparin gtt per protocol. No HD today per nephro due to hypotension and tachycardia. 04/21: Converted to SR this am, remains on Amiodarone and heparin. Awaiting cardio final recommendations. Still on Levophed gtt for low BP, given patient history of chronic hypotension, Wean pressor for MAP goal of 60s. Patient is pocketing foods, currently NPO, awaiting speech eval and treat. 04/22: Patient passed speech swallow eval yesterday, however, patient is refusing PO intakes including meds. Will insert DHT for nutrition and meds administra tion. Patient remains in SR this am, amiodaron gtt transitioned to PO per cardio. Patient remains on heparin and Levophed gtt. Patient has not received PO midrodrine for 24hrs, resume meds once DHT is inserted. Keep femoral CVC for another 24hrs, anticipating will be able to wean off pressor once patient receive midodrine. Will reassess in the morning. No HD overnight, unable to cannulate AVF, plan to attempt again today per Nephro. Possible IR/Vascular surgery consult if unsuccessful again today. 04/23: Mentation a lot better this am. DHT was inserted, meds resumed and TF initiated. Levophed gtt increased overnight due to worsen hypotension, suspected it is due to sedative agents. Seroquel decreased to 200mg BID and scheduled ativan switched to PRN. Continue midodrine TID and wean off levophed gtt for MAP goal of 60. Patient tolerated HD yesterday, continue iHD per Nephrology. CCM recommendations noted, Chest US ordered for pleural effusion. 04/24: RN instructed to wean Levophed off, goal MAP of 60. Heparin drip stopped due to decreasing hemoglobin. 04/25: ST had cleared the patient for pured diet which will be started today, hemodialysis planned for today, patient was to be anemic and will receive 1 unit PRBC with HD. We will increase midodrine to 20 mg 3 times daily if patient becomes hypotensive during dialysis. Per CCM. Decrease in seroqoul but will increase if needed 04/26: Patient agreeable to PEG, GI consulted for placement. Femoral line removed 04/27: No acute events reported overnight, patient has been cardiac cleared for PEG tube placement. Possible PEG in the a.m. This afternoon attempted to place IJ CVL which was unsuccessful and Dr. Mcguire ultimately placed femoral CVL for the initiation of Levophed. HD scheduled for today. 04/28: Patient initially started on Levophed yesterday and she received a femoral CVL. 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 Vascular surgery was consulted. Patient also noted to be anemic and received 1 unit PRBC today. 04/29: Possible hemodialysis today, patient was able to be weaned off of Levophed today. Hemoglobin responded well to 1 unit PRBC. Awaiting trach/PEG placement. Patient will not need to be started on heparin drip per vascular surgery. No acute events reported overnight. 04/30: HD yesterday without removal of fluids, patient needs NT suctioning. Updated son today. 05/01: Patient with increase mucous production and is unable to fully clear her airway, Rhonchi auscultated throughout her lungs this am. SPO2 at 90 to 94% on 3L NC. D/W CCM, patient is high risk for aspiration will placed patient on heated HF at 40L for now instead of Bipap. Nasal bleeding also noted, mostly due to NT suctioning. Refrain from NT suctioning for now due to bleeding, only oral suctioning. PO seroquel held this amP atient is AAO, appropriate, and following commands. Levophed gtt weaned off, patient remains hemodynamically stable. Will discuss Nephro for possible fluid removal tonight or early tomorrow. Very low threshold for intubation. Patient's condition and plan of care, including possible intubation, thoroughly discussed with patient's son-Raymundo Randolph at . Patient's son verbalized understanding of the info provided and agreed with intubation if necessary. 05/02: Remains on HHFL at 40% and 40L, mentation is unchanged. HD at the bedside, plan for possible UF with fluid removal today. Continue O2 supplementation and wean as tolerated, for SPO2 above 92%. Repeat CXR in the am. Patient vital signs remains stable, still off pressors. Plan for possible PEG-tube placement by GI tomorrow, NPO after MN. Possible fistulogram for RIJ thrombus on or sunday per Vascular Surgery. 05/03: Complete white-out of right side from this am CXR, probable mucus plug. S/p intubation and bronch at the bedside by [facility]. Patient remains sedated and required short duration of Levophed gtt during the procedure. Pressor was wean off, VSS. Plan for CPT and mucomyst Q12hrs. Repeat CXR in the am. PEG-Tube placement postpone for possibly tomorrow if patient remains stable. Possible fistulogram for RIJ thrombus on or Sunday per Vascular Surgery. 05/04: Remains on the vent, easily arousable. High fevers overnight with spike in leukocytosis, now on 2 pressors. [facility] d/w ID, recommendations to repeat blood cultures and empiric IV abx- Cefepine and Vanco. low H&H this am, no s/s of any active bleeding, 1units of PRBCs during iHD today. S/p PEG-tube placement at this bedside this am by GI, no complications noted. Resume TF once clear by GI. 05/05: Remains on low vent setting. This am CXR with increase opacities on the right side again today, s/p therapeutic bronch at the bedside today by [facility]. Repeat CXR in the am. Remains with low grade fevers and on 2 pressors. Bronchial wash with Staph A. and blood cultures pending. Continue current IV Abx per ID. 05/06: Stable on the vent this am. Only on low dose pressors, MAP above 65. CXR with some improvement, peep dropped to 8 per [facility]. Continue CPT and Mucomyst TID. If patient remains stable overnight, possible PSV trial in the am. Fevers and leukocytosis improved. Continue current IV Abx per ID. Continue iHD per Nephro 05/07: Remains stable on the vent, afebrile and off pressors this am VSS. This am CXR reviewed, increased opacities on the right side. Patient remains on low vent settings. Further management per [facility], continue CPT and Mucomyst TID. Bronch wash with MRSA, blood cultures pending. Continue current IV Abx per ID. 05/08: We will replete potassium, [facility] would like a CTA chest but evaluate atelectasis/consolidation/effusions. LTAC evaluation 05/09: HD today, CTA chest completed. CPAP yesterday but rested on AC overnight. 05/10: Patient discharge will be delayed till tomorrow due to bed unavailability at LTAC facility, no acute distress overnight. Patient placed on PSV but failed. 05/11: Transferred to LTAC has been delayed. Patient received hemodialysis today. Patient CPAP trial and she fell today. No acute events reported overnight. 05/12: Overnight patient was restarted on Levophed, patient was scheduled for tracheostomy and noted drop in hemoglobin therefore patient was ordered to be transfused for 1 unit. Patient did receive dialysis yesterday. Due to the use of vasopressors surgery was canceled. Patient did have 1 spike in temperature to 101 and given increase in WBC patient was started on IV cefepime for 3 days to complete her 8-day therapy as recommended by infectious disease. Hospitalist Physical - Constitutional Vitals: Temp Pulse Resp BP Pulse Ox 99.2 F 98 H 15 134/32 99 05/12/22 11:38 05/12/22 15:00 05/12/22 15:00 05/12/22 15:00 05/12/22 15:00 General appearance: Present: no acute distress, other (intubated) - EENT Eyes: Present: PERRL, EOM intact ENT: hearing intact, clear oral mucosa, dentition normal - Neck Neck: Present: normal ROM - Respiratory Respiratory effort: normal Respiratory: bilateral: rhonchi - Cardiovascular Rhythm: regular Heart Sounds: Present: S1 & S2. Absent: systolic murmur, diastolic murmur - Extremities Extremities: no ischemia, pulses intact, pulses symmetrical, normal color Extremity abnormal: edema Peripheral Pulses: within normal limits - Abdominal General gastrointestinal: soft, non-tender, non-distended, normal bowel sounds - Integumentary Integumentary: Present: warm, dry - Psychiatric Psychiatric: cooperative - Neurologic Neurologic: CNII-XII intact, no focal deficits - Allied Health Allied health notes reviewed: nursing, RT, social work HEART Score - HEART Score Troponin: Troponin T 0.415 ng/mL (0.00-0.029) H* 04/19/22 04:53 Results - Labs CBC & Chem 7: 05/12/22 04:11 05/12/22 06:00 Labs: Laboratory Last Values WBC 18.0 K/mm3 (4.5-11.0) H 05/12/22 04:11 RBC 2.56 M/mm3 (3.65-5.03) L 05/12/22 04:11 Hgb 7.2 gm/dl (10.1-14.3) L 05/12/22 04:11 Hct 23.2 % (30.3-42.9) L 05/12/22 04:11 MCV 90 fl (79-97) 05/12/22 04:11 MCH 28 pg (28-32) 05/12/22 04:11 MCHC 31 % (30-34) 05/12/22 04:11 RDW 16.4 % (13.2-15.2) H 05/12/22 04:11 Plt Count 196 K/mm3 (140-440) 05/12/22 04:11 Lymph % (Auto) 7.8 % (13.4-35.0) L 05/12/22 04:11 [place] % (Auto) 14.2 % (0.0-7.3) H 05/12/22 04:11 Eos % (Auto) 0.5 % (0.0-4.3) 05/12/22 04:11 Baso % (Auto) 0.4 % (0.0-1.8) 05/12/22 04:11 Lymph # (Auto) 1.4 K/mm3 (1.2-5.4) 05/12/22 04:11 [place] # (Auto) 2.5 K/mm3 (0.0-0.8) H 05/12/22 04:11 Eos # (Auto) 0.1 K/mm3 (0.0-0.4) 05/12/22 04:11 Baso # (Auto) 0.1 K/mm3 (0.0-0.1) 05/12/22 04:11 Add Manual Diff Complete 05/05/22 04:20 Total Counted 100 05/05/22 04:20 Seg Neutrophils % 77.1 % (40.0-70.0) H 05/12/22 04:11 Seg Neuts % (Manual) 86.0 % (40.0-70.0) H 05/05/22 04:20 Band Neutrophils % 3.0 % 05/05/22 04:20 Lymphocytes % (Manual) 4.0 % (13.4-35.0) L 05/05/22 04:20 Reactive Lymphs % (Man) 0 % 05/05/22 04:20 Monocytes % (Manual) 6.0 % (0.0-7.3) 05/05/22 04:20 Eosinophils % (Manual) 1.0 % (0.0-4.3) 05/05/22 04:20 Basophils % (Manual) 0 % (0.0-1.8) 05/05/22 04:20 Metamyelocytes % 0 % 05/05/22 04:20 Myelocytes % 0 % 05/05/22 04:20 Promyelocytes % 0 % 05/05/22 04:20 Blast Cells % 0 % 05/05/22 04:20 Nucleated RBC % 1.0 % (0.0-0.9) H 05/05/22 04:20 Seg Neutrophils # 13.9 K/mm3 (1.8-7.7) H 05/12/22 04:11 Seg Neutrophils # Man 11.0 K/mm3 (1.8-7.7) H 05/05/22 04:20 Band Neutrophils # 0.4 K/mm3 05/05/22 04:20 Lymphocytes # (Manual) 0.5 K/mm3 (1.2-5.4) L 05/05/22 04:20 Abs React Lymphs (Man) 0.0 K/mm3 05/05/22 04:20 Monocytes # (Manual) 0.8 K/mm3 (0.0-0.8) 05/05/22 04:20 Eosinophils # (Manual) 0.1 K/mm3 (0.0-0.4) 05/05/22 04:20 Basophils # (Manual) 0.0 K/mm3 (0.0-0.1) 05/05/22 04:20 Metamyelocytes # 0.0 K/mm3 05/05/22 04:20 Myelocytes # 0.0 K/mm3 05/05/22 04:20 Promyelocytes # 0.0 K/mm3 05/05/22 04:20 Blast Cells # 0.0 K/mm3 05/05/22 04:20 WBC Morphology Not Reportable 05/05/22 04:20 Hypersegmented Neuts Not Reportable 05/05/22 04:20 Hyposegmented Neuts Not Reportable 05/05/22 04:20 Hypogranular Neuts Not Reportable 05/05/22 04:20 Smudge Cells Not Reportable 05/05/22 04:20 Toxic Granulation Not Reportable 05/05/22 04:20 Toxic Vacuolation Not Reportable 05/05/22 04:20 Dohle Bodies Not Reportable 05/05/22 04:20 Pelger-Huet Anomaly Not Reportable 05/05/22 04:20 Ubaldo Rods Not Reportable 05/05/22 04:20 Platelet Estimate Consistent w auto 05/05/22 04:20 Clumped Platelets Not Reportable 05/05/22 04:20 Plt Clumps, EDTA Not Reportable 05/05/22 04:20 Large Platelets Not Reportable 05/05/22 04:20 Giant Platelets Not Reportable 05/05/22 04:20 Platelet Satelliting Not Reportable 05/05/22 04:20 Plt Morphology Comment Not Reportable 05/05/22 04:20 RBC Morphology Not Reportable 05/05/22 04:20 Dimorphic RBCs Not Reportable 05/05/22 04:20 Polychromasia Not Reportable 05/05/22 04:20 Hypochromasia 2+ 05/05/22 04:20 Poikilocytosis Not Reportable 05/05/22 04:20 Anisocytosis 1+ 05/05/22 04:20 Microcytosis Not Reportable 05/05/22 04:20 Macrocytosis Not Reportable 05/05/22 04:20 Spherocytes Not Reportable 05/05/22 04:20 Pappenheimer Bodies Not Reportable 05/05/22 04:20 Sickle Cells Not Reportable 05/05/22 04:20 Target Cells Not Reportable 05/05/22 04:20 Tear Drop Cells Not Reportable 05/05/22 04:20 Ovalocytes Not Reportable 05/05/22 04:20 Helmet Cells Not Reportable 05/05/22 04:20 [place] Bodies Not Reportable 05/05/22 04:20 [place] Rings Not Reportable 05/05/22 04:20 Stacey Cells Not Reportable 05/05/22 04:20 Bite Cells Not Reportable 05/05/22 04:20 Crenated Cell Not Reportable 05/05/22 04:20 Elliptocytes Not Reportable 05/05/22 04:20 Acanthocytes (Spur) Not Reportable 05/05/22 04:20 Rouleaux Not Reportable 05/05/22 04:20 Hemoglobin C Crystals Not Reportable 05/05/22 04:20 Schistocytes Not Reportable 05/05/22 04:20 Malaria parasites Not Reportable 05/05/22 04:20 Torrey Bodies Not Reportable 05/05/22 04:20 Hem Pathologist Commnt No 05/05/22 04:20 PT 15.4 Sec. (12.2-14.9) H 05/12/22 04:11 INR 1.09 (0.87-1.13) 05/12/22 04:11 APTT 39.4 Sec. (24.2-36.6) H 05/03/22 04:24 Heparin Anti-Xa Level < 0.10 U.I./ml (0.3-0.7) L 04/24/22 10:20 ABG pH 7.421 pH Units (7.350-7.450) 05/08/22 21:00 ABG pCO2 42.4 mm Hg 05/08/22 21:00 ABG pO2 68.8 mm Hg (80.0-90.0) L 05/08/22 21:00 ABG HCO3 27.0 mmol/L (20.0-26.0) H 05/08/22 21:00 ABG O2 Saturation 95.7 % (95.0-99.0) 05/08/22 21:00 ABG O2 Content 11.1 (0.0-44) 05/08/22 21:00 ABG Base Excess 2.3 mmol/L (-2.0-3.0) 05/08/22 21:00 ABG Hemoglobin 8.4 gm/dl (12.0-16.0) L 05/08/22 21:00 ABG Carboxyhemoglobin 1.8 % (0.0-5.0) 05/08/22 21:00 ABG Methemoglobin 0.5 % (0.0-1.5) 05/08/22 21:00 Oxyhemoglobin 93.4 % (95.0-99.0) L 05/08/22 21:00 FiO2 30 % 05/08/22 21:00 Sodium 133 mmol/L (137-145) L 05/12/22 06:00 Potassium 4.2 mmol/L (3.6-5.0) 05/12/22 06:00 Chloride 94.1 mmol/L (98-107) L 05/12/22 06:00 Carbon Dioxide 27 mmol/L (22-30) 05/12/22 06:00 Anion Gap 16 mmol/L 05/12/22 06:00 BUN 29 mg/dL (7-17) H 05/12/22 06:00 Creatinine 2.4 mg/dL (0.6-1.2) H 05/12/22 06:00 Estimated GFR 24 ml/min 05/12/22 06:00 BUN/Creatinine Ratio 12 % 05/12/22 06:00 Glucose 145 mg/dL (65-100) H 05/12/22 06:00 POC Glucose 122 mg/dL (70-105) H 05/12/22 05:03 Lactic Acid 1.60 mmol/L (0.7-2.0) 04/19/22 07:14 Calcium 8.7 mg/dL (8.4-10.2) 05/12/22 06:00 Phosphorus 3.00 mg/dL (2.5-4.5) D 05/09/22 04:25 Magnesium 1.80 mg/dL (1.7-2.3) 05/09/22 04:25 Total Bilirubin 0.30 mg/dL (0.1-1.2) 05/12/22 06:00 AST 24 units/L (5-40) 05/12/22 06:00 ALT 7 units/L (7-56) 05/12/22 06:00 Alkaline Phosphatase 332 units/L (35-129) H 05/12/22 06:00 Ammonia 25.0 umol/L (25-60) 04/19/22 04:53 Lactate Dehydrogenase 142 units/L (91-180) 05/09/22 04:25 Troponin T 0.415 ng/mL (0.00-0.029) H* 04/19/22 04:53 Total Protein 4.8 g/dL (6.3-8.2) L 05/12/22 06:00 Albumin 2.0 g/dL (3.9-5) L 05/12/22 06:00 Albumin/Globulin Ratio 0.7 % 05/12/22 06:00 Procalcitonin 42.42 ng/mL (<0.15) 05/05/22 04:20 TSH 1.700 mlU/mL (0.270-4.200) 04/19/22 04:53 Free T4 0.28 ng/dL (0.76-1.46) L 04/19/22 04:53 Total Cortisol 24.4 mcg/dL () 04/27/22 04:45 Fluid Type Pleural 05/09/22 Unknown Fluid Color Yellow 05/09/22 Unknown Fluid Appearance Clear 05/09/22 Unknown Fluid WBC 21 /mm3 05/09/22 Unknown Fluid RBC 12 /mm3 05/09/22 Unknown Fluid Seg Neutrophils 60.0 % 05/09/22 Unknown Fluid Lymphocytes 11.0 % 05/09/22 Unknown Fluid Monocytes 29.0 % 05/09/22 Unknown Random Vancomycin 20.0 ug/mL (0-40.0) 05/11/22 03:56 Coronavirus (PCR) Negative (Negative) 05/03/22 11:30 Hepatitis A IgM Ab Non-reactive (NonReactive) 04/19/22 04:53 Hep Bs Antigen Non-reactive (Negative) 04/19/22 04:53 Hep B Core IgM Ab Non-reactive (NonReactive) 04/19/22 04:53 Hepatitis C Antibody Non-reactive (NonReactive) 04/19/22 04:53 Blood Type A POSITIVE 05/12/22 06:07 Antibody Screen Negative 05/12/22 06:07 Crossmatch See Detail 05/12/22 06:07 Microbiology: Microbiology 05/09/22 Unknown Other (Please Specify:) - Pleura Body Fluid Culture - Preliminary Cleary/IV: Voiding Method Diaper Active Medications - Current Medications Current Medications: Generic Name Dose Route Start Last Admin Trade Name Freq PRN Reason Stop Dose Admin Acetaminophen 650 mg 04/22/22 20:12 05/12/22 09:39 Acetaminophen 325 Mg/10.15 Ml Oral Liqd Unit Dose PO 650 mg Q6H PRN Administration Pain MILD(1-3)/Fever >100.5/DRAKE Albumin Human 25 gm 04/21/22 13:00 04/22/22 16:31 Albumin Human 25% (25 Gm/100 Ml) Inj IV 25 gm BIANCA PRN Administration Hypotension Albuterol 2.5 mg 04/21/22 08:30 04/24/22 16:51 Albuterol 2.5 Mg/3 Ml Nebu IH 2.5 mg Q3HRT PRN Administration Shortness Of Breath Albuterol/Ipratropium 1 ampul 04/21/22 14:00 05/12/22 14:25 Ipratropium/Albuterol Sulfate 3 Ml Ampul.Neb IH 1 ampul TIDRT CONNOR Administration Docusate Sodium 100 mg 05/01/22 22:00 05/12/22 09:25 Docusate Sodium 100 Mg/10 Ml Oral Liqd FEEDTUBE Not Given BID CONNOR Epoetin Lb-epbx 20,000 unit 04/23/22 12:00 05/09/22 14:58 Epoetin Lb-Epbx 20,000 Unit/1 Ml Vial IV 20,000 unit BIANCA PRN Administration HEMODIALYSIS Fentanyl 50 mcg 05/03/22 10:29 05/05/22 12:23 Fentanyl 100 Mcg/2 Ml Inj IV 25 mcg Q10MIN PRN Administration ANALGESIA Sodium Chloride 100 mls @ 999 mls/hr 04/22/22 09:12 Nacl 0.9% IV BIANCA PRN Hypotension Fentanyl Citrate 2,000 mcg in 100 mls @ 2.722 mls/hr 05/03/22 11:00 Fentanyl Drip Premix IV TITR CONNOR Protocol 1 MCG/KG/HR Vasopressin 20 unit/ Sodium 101 mls @ 9.09 mls/hr 05/04/22 00:30 05/06/22 11:21 Chloride IV 0 units/min TITR CONNOR 0 mls/hr Infusion 0.03 UNITS/MIN Vancomycin HCl 750 mg/ Sodium 265 mls @ 166.667 mls/hr 05/09/22 22:00 05/12/22 00:34 Chloride IV 05/13/22 21:59 166.667 mls/hr TuThSa CONNOR Administration NORepinephrine/NS 8 MG-250 ML 8 mg in 250 mls @ 3.75 mls/hr 05/11/22 21:23 05/12/22 12:21 Norepinephrine/Ns 8 Mg-250 Ml (Double Conc) IV 10 mcg/min TITRATE CONNOR 18.75 mls/hr Administration Protocol 2 MCG/MIN Cefepime HCl 1 gm in 100 mls @ 200 mls/hr 05/12/22 18:00 Cefepime/Ns 1 Gm/100 Ml IV 05/14/22 18:29 Q24H CONNOR Protocol Lansoprazole 30 mg 04/23/22 10:00 05/12/22 09:35 Lansoprazole 30 Mg Solutab FEEDTUBE 30 mg QDAY CONNOR Administration Lorazepam 0.5 mg 04/25/22 09:59 Lorazepam 0.5 Mg Tab FEEDTUBE QDAY PRN Anxiety Memantine 5 mg 04/25/22 10:00 05/12/22 09:36 Memantine 5 Mg Tab FEEDTUBE 5 mg BID CONNOR Administration Metoclopramide HCl 5 mg 04/19/22 09:55 Metoclopramide 10 Mg/2 Ml Inj IV Q6H PRN Nausea And Vomiting Midodrine 20 mg 04/26/22 14:00 05/12/22 13:46 Midodrine 10 Mg Tab FEEDTUBE 20 mg TID CONNOR Administration Naloxone HCl 0.1 mg 04/19/22 09:55 Naloxone 0.4 Mg/1 Ml Inj IV Q2MIN PRN Res Rate </= 8 or 02 SAT < 92% Polyethylene Glycol 17 gm 05/03/22 10:00 05/12/22 09:25 Polyethylene Glycol 3350 17 Gm Powder FEEDTUBE Not Given QDAY CONNOR Risperidone 0.5 mg 04/25/22 11:00 05/12/22 09:35 Risperidone 1 Mg Tab FEEDTUBE 0.5 mg BID CONNOR Administration Scopolamine 1 each 05/02/22 10:00 05/11/22 09:13 Scopolamine Transdermal Patch 72 Hr TD 1 each Q3D CONNOR Administration Senna 17.2 mg 04/23/22 10:00 05/12/22 09:26 Sennosides 8.6 Mg Tab FEEDTUBE Not Given BID CONNOR Sodium Chloride 10 ml 04/19/22 12:00 05/12/22 09:35 Sodium Chloride 0.9% 10 Ml Flush Syringe IV 10 ml BID CONNOR Administration Sodium Chloride 10 ml 04/19/22 11:19 Sodium Chloride 0.9% 10 Ml Flush Syringe IV PRN PRN LINE FLUSH Valproic Acid 750 mg 04/22/22 22:00 05/12/22 09:36 Valproic Acid 250 Mg/5 Ml Oral Liqd FEEDTUBE 750 mg BID CONNOR Administration Nutrition/Malnutrition Assess - Dietary Evaluation Nutrition/Malnutrition Findings: Nutrition Notes Start: 04/19/22 17:39 Freq: Status: Active Protocol: Document 05/12/22 14:43 SHILA (Rec: 05/12/22 14:47 SHILA [id number]) Nutrition Notes Initial or Follow up Reassessment Current Diagnosis CKD (stage V CKD),Sepsis, Respiratory Failure Other Pertinent Diagnosis Neurogenic dysphagia, metabolic encephalopathy, vascular dementia Current Diet NPO Labs/Tests Na 133 BUN 29 Cr 2.4 Pertinent Medications Reviewed Height 5 ft 2 in Weight 54.43 kg [place] Body Weight (kg) 50.00 BMI 21.9 Weight Status Appropriate Subjective/Other Information Pt NPO for planned procedure today (trach placement), however, pt not hemodynamically stable enough for anesthesia. Trach may be placed on 05/15. Last BM documented on 05/07. Pt remains on vent support. Burn Absent Trauma Absent #1 Nutrition Diagnosis Swallowing difficulty Diagnosis Progress(for reassessment Continues documentation) Is patient on ventilator? Yes Is Patient Ambulatory and/or Out of Bed No REE-([place] [facility]-confined to bed) 1244.844 Calculation Used for Recommendations [place] [facility] Additional Notes Pro needs >1.2g/kg: >65g/day Fluid needs 1-1.5L/day Nutrition Intervention Nutrition Support: Resume Nepro at 30ml/hr with 130ml water flush q4h. Kcal 1,296 Protein (gm) 58 Carbohydrates (gm) 116 Fat (gm) 69 Fluid (mL) 523 Fiber (gm) 9 Goal #1 Resume TF to meet nutrient needs Follow-Up By: 05/15/22 Additional Comments F/U: Trach placement, TF re- start, vent status, BM
[2022-05-12] MEDS: CEFEPIME/NS 1 GM/100 ML 1 GM/100 ML BAG IV SCH (17:34)
--- NOTE | 2022-05-12 18:40 | Progress Note ---
Assessment and Plan Cultures: 04/19/2022 blood culture: No growth 05/03/2022 respiratory culture: Staph aureus 05/04/2022 blood culture: In process A/P: 66-year-old female with hypertension, GERD, seizure disorder, ESRD on HD, bipolar disorder, schizophrenia, anxiety was admitted on 04/19/2022 with altered mental status: #Septic shock: On pressors. Remains on the vent. #Bilateral pneumonia: Right worse than left. Sputum growing Staph aureus. #ESRD on HD: Renally adjust antibiotics. #Acute hypoxic respiratory failure: On mechanical ventilation. #SVT s/p cardioversion Recs: -Continue cefepime, vancomycin, renally adjusted. Planned 10 days, though no currently hemodynamically unstable. -Follow-up pleural fluid cultures Guero Templeton MD [facility] ([facility]) O: [phone] F: [phone] Subjective Date of service: 05/12/22 Principal diagnosis: Neurogenic Dysphagia Interval history: Afebrile, T-max 100.2. Remains on vancomycin and cefepime. White count 18. This is a big jump from her most recent 1 which was normal. Trach was placed on hold for now. Objective - Exam Narrative Exam: Physical Exam: Constitutional: sedated, intubated, on the vent Head, Ears, Nose: Normocephalic, atraumatic. External ears, nose normal Eyes: Conjunctivae/corneas clear. No icterus. No ptosis. Neck: intubated Oral: intubated Cardiovascular: S1, S2 + Respiratory: AE fair bilaterally and equal GI: Soft, bowel sounds hypo-, G-tube present Musculoskeletal: Edematous upper extremities. Right femoral line present Skin: No rash or abscess Hem/Lymphatic: No palpable cervical or supraclavicular nodes. No lymphangitis Psych: no agitation Neurological: sedated, intubated, on the vent, exam limited - Constitutional Vitals: Vital Signs Temp Pulse Resp BP Pulse Ox 99.4 F 105 H 14 129/47 99 05/12/22 16:00 05/12/22 18:00 05/12/22 18:00 05/12/22 18:00 05/12/22 18:00 Temperature -Last 24 Hours Temperature 99.4 F Temperature 99.2 F Temperature 100.2 F Temperature 98.6 F Temperature 98.8 F Temperature 99.2 F - Labs CBC & Chem 7: 05/12/22 04:11 05/12/22 06:00 Labs: Abnormal lab results 05/11/22 05/11/22 05/12/22 Range/Units 18:11 23:53 04:11 WBC 18.0 H (4.5-11.0) K/mm3 RBC 2.56 L (3.65-5.03) M/mm3 Hgb 7.2 L (10.1-14.3) gm/dl Hct 23.2 L (30.3-42.9) % RDW 16.4 H (13.2-15.2) % Lymph % (Auto) 7.8 L (13.4-35.0) % [place] % (Auto) 14.2 H (0.0-7.3) % [place] # (Auto) 2.5 H (0.0-0.8) K/mm3 Seg Neutrophils % 77.1 H (40.0-70.0) % Seg Neutrophils # 13.9 H (1.8-7.7) K/mm3 PT (12.2-14.9) Sec. Sodium (137-145) mmol/L Chloride (98-107) mmol/L BUN (7-17) mg/dL Creatinine (0.6-1.2) mg/dL Glucose (65-100) mg/dL POC Glucose 166 H 115 H (70-105) mg/dL Alkaline Phosphatase (35-129) units/L Total Protein (6.3-8.2) g/dL Albumin (3.9-5) g/dL Crossmatch 05/12/22 05/12/22 05/12/22 Range/Units 04:11 05:03 06:00 WBC (4.5-11.0) K/mm3 RBC (3.65-5.03) M/mm3 Hgb (10.1-14.3) gm/dl Hct (30.3-42.9) % RDW (13.2-15.2) % Lymph % (Auto) (13.4-35.0) % [place] % (Auto) (0.0-7.3) % [place] # (Auto) (0.0-0.8) K/mm3 Seg Neutrophils % (40.0-70.0) % Seg Neutrophils # (1.8-7.7) K/mm3 PT 15.4 H (12.2-14.9) Sec. Sodium 133 L (137-145) mmol/L Chloride 94.1 L (98-107) mmol/L BUN 29 H (7-17) mg/dL Creatinine 2.4 H (0.6-1.2) mg/dL Glucose 145 H (65-100) mg/dL POC Glucose 122 H (70-105) mg/dL Alkaline Phosphatase 332 H (35-129) units/L Total Protein 4.8 L (6.3-8.2) g/dL Albumin 2.0 L (3.9-5) g/dL Crossmatch 05/12/22 05/12/22 05/12/22 Range/Units 06:07 11:36 16:44 WBC (4.5-11.0) K/mm3 RBC (3.65-5.03) M/mm3 Hgb (10.1-14.3) gm/dl Hct (30.3-42.9) % RDW (13.2-15.2) % Lymph % (Auto) (13.4-35.0) % [place] % (Auto) (0.0-7.3) % [place] # (Auto) (0.0-0.8) K/mm3 Seg Neutrophils % (40.0-70.0) % Seg Neutrophils # (1.8-7.7) K/mm3 PT (12.2-14.9) Sec. Sodium (137-145) mmol/L Chloride (98-107) mmol/L BUN (7-17) mg/dL Creatinine (0.6-1.2) mg/dL Glucose (65-100) mg/dL POC Glucose 143 H 121 H (70-105) mg/dL Alkaline Phosphatase (35-129) units/L Total Protein (6.3-8.2) g/dL Albumin (3.9-5) g/dL Crossmatch See Detail
[2022-05-12 19:20] LABS: Hematocrit 27.1 % (30.3-42.9); Hemoglobin 8.7 gm/dl (10.1-14.3)
[2022-05-13 05:16] LABS: Hematocrit 26.9 % (30.3-42.9); Hemoglobin 8.8 gm/dl (10.1-14.3); Mean Corpuscular HGB Conc 33 % (30-34); Mean Corpuscular Volume 88 fl (79-97); Platelet Count 295 K/mm3 (140-440); Red Blood Count 3.04 M/mm3 (3.65-5.03); Red Cell Distribution Width 15.3 % (13.2-15.2)
[2022-05-13] MEDS: NORepinephrine/NS 8 MG-250 ML 8 MG/250 ML INFUS..BTL IV SCH (05:19)
[2022-05-13 05:37] LABS: Calcium 8.8 mg/dL (8.4-10.2)
--- NOTE | 2022-05-13 05:38 | Progress Note ---
Assessment and Plan Impression: * End stage renal disease * AMS * Acute hypoxic respiratory failure on mechanical ventilation * SVT s/p cardioversion * IJ thrombus * NSTEMI * SIRS * Hypotension * Anemia secondary to ESRD * Secondary hyperparathyroidism Plan: * No acute indication for HD today. * Continue HD TTS schedule * UF as tolerated * Transfuse pRBC prn * Midodrine TID * Maintain MAP>65, vasopressors prn - currently on Levophed * Avoid potential nephrotoxins * Epogen TIW prn * Nutrition via PEG * Dose medications for renal function Subjective Date of service: 05/12/22 Principal diagnosis: Neurogenic Dysphagia Interval history: Chart, vitals, labs reviewed. Patient remains intubated. ACVC Rate 14, TV 450, FiO2 30, PEEP 6. Levophed infusing. Objective - Vital Signs Vital signs: Vital Signs - 12hr 05/12/22 05/12/22 05/12/22 17:35 17:40 17:45 Temperature Pulse Rate 93 H 103 H 104 H Pulse Rate [ Anterior Bilateral Throughout] Pulse Rate [ From Monitor] Respiratory 14 14 14 Rate Respiratory Rate [Anterior Bilateral Throughout] Blood Pressure 107/50 122/51 122/51 O2 Sat by Pulse 100 98 98 Oximetry 05/12/22 05/12/22 05/12/22 17:50 17:55 18:00 Temperature Pulse Rate 99 H 105 H 105 H Pulse Rate [ Anterior Bilateral Throughout] Pulse Rate [ From Monitor] Respiratory 14 15 14 Rate Respiratory Rate [Anterior Bilateral Throughout] Blood Pressure 125/42 125/42 129/47 O2 Sat by Pulse 99 99 99 Oximetry 05/12/22 05/12/22 05/12/22 18:05 18:10 18:15 Temperature Pulse Rate 103 H 98 H 103 H Pulse Rate [ Anterior Bilateral Throughout] Pulse Rate [ From Monitor] Respiratory 14 14 17 Rate Respiratory Rate [Anterior Bilateral Throughout] Blood Pressure 129/47 112/38 112/38 O2 Sat by Pulse 99 99 99 Oximetry 05/12/22 05/12/22 05/12/22 18:20 18:25 18:31 Temperature Pulse Rate 106 H 102 H 105 H Pulse Rate [ Anterior Bilateral Throughout] Pulse Rate [ From Monitor] Respiratory 17 14 17 Rate Respiratory Rate [Anterior Bilateral Throughout] Blood Pressure 125/41 125/41 123/50 O2 Sat by Pulse 98 99 98 Oximetry 05/12/22 05/12/22 05/12/22 18:35 18:40 18:45 Temperature Pulse Rate 100 H 101 H 104 H Pulse Rate [ Anterior Bilateral Throughout] Pulse Rate [ From Monitor] Respiratory 14 16 15 Rate Respiratory Rate [Anterior Bilateral Throughout] Blood Pressure 123/50 111/52 111/52 O2 Sat by Pulse 99 99 99 Oximetry 05/12/22 05/12/22 05/12/22 18:50 18:52 18:55 Temperature Pulse Rate 105 H 105 H 101 H Pulse Rate [ Anterior Bilateral Throughout] Pulse Rate [ 99 H From Monitor] Respiratory 16 15 14 Rate Respiratory Rate [Anterior Bilateral Throughout] Blood Pressure 109/52 109/52 O2 Sat by Pulse 99 99 99 Oximetry 05/12/22 05/12/22 05/12/22 19:00 19:05 19:11 Temperature Pulse Rate 103 H 105 H 104 H Pulse Rate [ Anterior Bilateral Throughout] Pulse Rate [ From Monitor] Respiratory 14 13 15 Rate Respiratory Rate [Anterior Bilateral Throughout] Blood Pressure 102/60 102/60 103/54 O2 Sat by Pulse 99 99 99 Oximetry 05/12/22 05/12/22 05/12/22 19:15 19:20 19:25 Temperature Pulse Rate 99 H 102 H 102 H Pulse Rate [ Anterior Bilateral Throughout] Pulse Rate [ From Monitor] Respiratory 14 15 14 Rate Respiratory Rate [Anterior Bilateral Throughout] Blood Pressure 103/54 111/56 111/56 O2 Sat by Pulse 98 98 99 Oximetry 05/12/22 05/12/22 05/12/22 19:30 19:35 19:40 Temperature 98.1 F Pulse Rate 104 H 105 H 107 H Pulse Rate [ Anterior Bilateral Throughout] Pulse Rate [ From Monitor] Respiratory 14 15 17 Rate Respiratory Rate [Anterior Bilateral Throughout] Blood Pressure 118/44 118/44 119/65 O2 Sat by Pulse 99 99 98 Oximetry 05/12/22 05/12/22 05/12/22 19:45 19:50 19:55 Temperature Pulse Rate 100 H 101 H 105 H Pulse Rate [ Anterior Bilateral Throughout] Pulse Rate [ From Monitor] Respiratory 14 15 14 Rate Respiratory Rate [Anterior Bilateral Throughout] Blood Pressure 119/65 105/45 105/45 O2 Sat by Pulse 99 98 99 Oximetry 05/12/22 05/12/22 05/12/22 20:00 20:05 20:10 Temperature Pulse Rate 105 H 103 H 102 H Pulse Rate [ 113 H Anterior Bilateral Throughout] Pulse Rate [ From Monitor] Respiratory 15 13 14 Rate Respiratory 14 Rate [Anterior Bilateral Throughout] Blood Pressure 114/66 114/66 119/52 O2 Sat by Pulse 99 98 99 Oximetry 05/12/22 05/12/22 05/12/22 20:15 20:21 20:25 Temperature Pulse Rate 107 H 110 H 97 H Pulse Rate [ Anterior Bilateral Throughout] Pulse Rate [ From Monitor] Respiratory 15 21 14 Rate Respiratory Rate [Anterior Bilateral Throughout] Blood Pressure 119/52 137/56 137/56 O2 Sat by Pulse 100 100 100 Oximetry 05/12/22 05/12/22 05/12/22 20:30 20:35 20:40 Temperature Pulse Rate 100 H 103 H 103 H Pulse Rate [ Anterior Bilateral Throughout] Pulse Rate [ From Monitor] Respiratory 14 14 14 Rate Respiratory Rate [Anterior Bilateral Throughout] Blood Pressure 118/47 118/47 121/49 O2 Sat by Pulse 100 99 99 Oximetry 05/12/22 05/12/22 05/12/22 20:45 20:50 20:55 Temperature Pulse Rate 103 H 101 H 104 H Pulse Rate [ Anterior Bilateral Throughout] Pulse Rate [ From Monitor] Respiratory 13 14 13 Rate Respiratory Rate [Anterior Bilateral Throughout] Blood Pressure 121/49 122/49 122/49 O2 Sat by Pulse 100 98 98 Oximetry 05/12/22 05/12/22 05/12/22 21:00 21:01 21:05 Temperature Pulse Rate 104 H 109 H Pulse Rate [ Anterior Bilateral Throughout] Pulse Rate [ From Monitor] Respiratory 15 14 15 Rate Respiratory Rate [Anterior Bilateral Throughout] Blood Pressure 122/50 122/50 O2 Sat by Pulse 99 99 97 Oximetry 05/12/22 05/12/22 05/12/22 21:10 21:15 21:20 Temperature Pulse Rate 99 H 106 H 107 H Pulse Rate [ Anterior Bilateral Throughout] Pulse Rate [ From Monitor] Respiratory 12 14 22 Rate Respiratory Rate [Anterior Bilateral Throughout] Blood Pressure 114/43 114/43 122/55 O2 Sat by Pulse 99 99 100 Oximetry 05/12/22 05/12/22 05/12/22 21:25 21:30 21:35 Temperature Pulse Rate 102 H 99 H 99 H Pulse Rate [ Anterior Bilateral Throughout] Pulse Rate [ From Monitor] Respiratory 13 14 14 Rate Respiratory Rate [Anterior Bilateral Throughout] Blood Pressure 122/55 104/41 104/41 O2 Sat by Pulse 100 100 98 Oximetry 05/12/22 05/12/22 05/12/22 21:40 21:45 21:50 Temperature Pulse Rate 96 H 96 H 94 H Pulse Rate [ Anterior Bilateral Throughout] Pulse Rate [ From Monitor] Respiratory 14 14 13 Rate Respiratory Rate [Anterior Bilateral Throughout] Blood Pressure 93/42 93/42 100/41 O2 Sat by Pulse 100 99 100 Oximetry 05/12/22 05/12/22 05/12/22 21:55 22:00 22:05 Temperature Pulse Rate 95 H 97 H 92 H Pulse Rate [ Anterior Bilateral Throughout] Pulse Rate [ From Monitor] Respiratory 14 13 14 Rate Respiratory Rate [Anterior Bilateral Throughout] Blood Pressure 100/41 99/42 99/42 O2 Sat by Pulse 100 100 99 Oximetry 05/12/22 05/12/22 05/12/22 22:10 22:15 22:20 Temperature Pulse Rate 92 H 91 H 87 Pulse Rate [ Anterior Bilateral Throughout] Pulse Rate [ From Monitor] Respiratory 14 14 14 Rate Respiratory Rate [Anterior Bilateral Throughout] Blood Pressure 96/38 96/38 101/38 O2 Sat by Pulse 100 99 100 Oximetry 05/12/22 05/12/22 05/12/22 22:25 22:31 22:35 Temperature Pulse Rate 95 H 93 H 94 H Pulse Rate [ Anterior Bilateral Throughout] Pulse Rate [ From Monitor] Respiratory 14 14 14 Rate Respiratory Rate [Anterior Bilateral Throughout] Blood Pressure 111/38 96/36 93/41 O2 Sat by Pulse 100 100 99 Oximetry 05/12/22 05/12/22 05/12/22 22:41 22:45 22:51 Temperature Pulse Rate 92 H 92 H 86 Pulse Rate [ Anterior Bilateral Throughout] Pulse Rate [ From Monitor] Respiratory 14 14 14 Rate Respiratory Rate [Anterior Bilateral Throughout] Blood Pressure 107/35 105/40 100/43 O2 Sat by Pulse 99 100 100 Oximetry 05/12/22 05/12/22 05/12/22 22:55 23:00 23:05 Temperature Pulse Rate 97 H 97 H 93 H Pulse Rate [ Anterior Bilateral Throughout] Pulse Rate [ From Monitor] Respiratory 11 L 14 14 Rate Respiratory Rate [Anterior Bilateral Throughout] Blood Pressure 103/58 122/49 108/43 O2 Sat by Pulse 98 100 100 Oximetry 05/12/22 05/12/22 05/12/22 23:10 23:11 23:15 Temperature Pulse Rate 105 H 97 H 91 H Pulse Rate [ Anterior Bilateral Throughout] Pulse Rate [ From Monitor] Respiratory 14 14 14 Rate Respiratory Rate [Anterior Bilateral Throughout] Blood Pressure 131/48 115/45 100/35 O2 Sat by Pulse 99 99 99 Oximetry 05/12/22 05/12/22 05/12/22 23:20 23:25 23:26 Temperature 101.9 F H Pulse Rate 91 H 98 H Pulse Rate [ Anterior Bilateral Throughout] Pulse Rate [ From Monitor] Respiratory 14 15 Rate Respiratory Rate [Anterior Bilateral Throughout] Blood Pressure 103/43 130/38 O2 Sat by Pulse 100 100 Oximetry 05/12/22 05/12/22 05/12/22 23:29 23:30 23:35 Temperature 101.9 F H Pulse Rate 93 H 92 H Pulse Rate [ Anterior Bilateral Throughout] Pulse Rate [ From Monitor] Respiratory 14 14 14 Rate Respiratory Rate [Anterior Bilateral Throughout] Blood Pressure 116/42 97/30 O2 Sat by Pulse 99 100 Oximetry 05/12/22 05/12/22 05/12/22 23:40 23:45 23:50 Temperature Pulse Rate 92 H 87 88 Pulse Rate [ Anterior Bilateral Throughout] Pulse Rate [ From Monitor] Respiratory 14 14 14 Rate Respiratory Rate [Anterior Bilateral Throughout] Blood Pressure 117/39 95/35 97/37 O2 Sat by Pulse 99 99 99 Oximetry 05/12/22 05/13/22 05/13/22 23:55 00:00 00:05 Temperature Pulse Rate 88 87 93 H Pulse Rate [ Anterior Bilateral Throughout] Pulse Rate [ From Monitor] Respiratory 14 14 14 Rate Respiratory Rate [Anterior Bilateral Throughout] Blood Pressure 83/35 88/35 86/43 O2 Sat by Pulse 99 98 98 Oximetry 05/13/22 05/13/22 05/13/22 00:10 00:15 00:20 Temperature Pulse Rate 92 H 88 95 H Pulse Rate [ Anterior Bilateral Throughout] Pulse Rate [ From Monitor] Respiratory 14 14 14 Rate Respiratory Rate [Anterior Bilateral Throughout] Blood Pressure 75/36 91/39 116/47 O2 Sat by Pulse 98 98 98 Oximetry 05/13/22 05/13/22 05/13/22 00:25 00:29 00:30 Temperature Pulse Rate 100 H 102 H Pulse Rate [ Anterior Bilateral Throughout] Pulse Rate [ From Monitor] Respiratory 14 14 16 Rate Respiratory Rate [Anterior Bilateral Throughout] Blood Pressure 126/63 135/65 O2 Sat by Pulse 98 98 Oximetry 05/13/22 05/13/22 05/13/22 00:35 00:36 00:40 Temperature Pulse Rate 102 H 101 H 102 H Pulse Rate [ Anterior Bilateral Throughout] Pulse Rate [ From Monitor] Respiratory 14 16 Rate Respiratory Rate [Anterior Bilateral Throughout] Blood Pressure 116/47 127/65 131/65 O2 Sat by Pulse 98 98 98 Oximetry 05/13/22 05/13/22 05/13/22 00:45 00:51 00:55 Temperature Pulse Rate 101 H 93 H 98 H Pulse Rate [ Anterior Bilateral Throughout] Pulse Rate [ From Monitor] Respiratory 14 14 14 Rate Respiratory Rate [Anterior Bilateral Throughout] Blood Pressure 136/63 114/51 114/60 O2 Sat by Pulse 98 98 98 Oximetry 05/13/22 05/13/22 05/13/22 01:00 01:05 01:10 Temperature Pulse Rate 96 H 96 H 95 H Pulse Rate [ Anterior Bilateral Throughout] Pulse Rate [ From Monitor] Respiratory 15 14 14 Rate Respiratory Rate [Anterior Bilateral Throughout] Blood Pressure 118/58 110/57 126/55 O2 Sat by Pulse 98 98 98 Oximetry 05/13/22 05/13/22 05/13/22 01:15 01:20 01:25 Temperature Pulse Rate 90 90 95 H Pulse Rate [ Anterior Bilateral Throughout] Pulse Rate [ From Monitor] Respiratory 14 14 13 Rate Respiratory Rate [Anterior Bilateral Throughout] Blood Pressure 105/50 106/50 99/54 O2 Sat by Pulse 98 98 98 Oximetry 05/13/22 05/13/22 05/13/22 01:30 01:35 01:40 Temperature Pulse Rate 98 H 93 H 94 H Pulse Rate [ Anterior Bilateral Throughout] Pulse Rate [ From Monitor] Respiratory 14 14 14 Rate Respiratory Rate [Anterior Bilateral Throughout] Blood Pressure 118/63 108/55 102/52 O2 Sat by Pulse 97 99 98 Oximetry 05/13/22 05/13/22 05/13/22 01:45 01:51 01:55 Temperature Pulse Rate 96 H 94 H 94 H Pulse Rate [ Anterior Bilateral Throughout] Pulse Rate [ From Monitor] Respiratory 15 14 13 Rate Respiratory Rate [Anterior Bilateral Throughout] Blood Pressure 112/58 101/47 89/53 O2 Sat by Pulse 98 98 99 Oximetry 05/13/22 05/13/22 05/13/22 02:01 02:05 02:11 Temperature Pulse Rate 86 98 H 90 Pulse Rate [ Anterior Bilateral Throughout] Pulse Rate [ From Monitor] Respiratory 14 14 14 Rate Respiratory Rate [Anterior Bilateral Throughout] Blood Pressure 99/44 127/59 92/44 O2 Sat by Pulse 98 98 98 Oximetry 05/13/22 05/13/22 05/13/22 02:15 02:21 02:25 Temperature Pulse Rate 89 93 H 96 H Pulse Rate [ Anterior Bilateral Throughout] Pulse Rate [ From Monitor] Respiratory 15 15 12 Rate Respiratory Rate [Anterior Bilateral Throughout] Blood Pressure 106/45 109/56 124/64 O2 Sat by Pulse 98 98 98 Oximetry 05/13/22 05/13/22 05/13/22 02:31 02:35 02:41 Temperature Pulse Rate 94 H 88 93 H Pulse Rate [ Anterior Bilateral Throughout] Pulse Rate [ From Monitor] Respiratory 14 14 15 Rate Respiratory Rate [Anterior Bilateral Throughout] Blood Pressure 116/54 91/45 97/52 O2 Sat by Pulse 98 99 98 Oximetry 05/13/22 05/13/22 05/13/22 02:45 02:51 02:55 Temperature Pulse Rate 96 H 94 H 90 Pulse Rate [ Anterior Bilateral Throughout] Pulse Rate [ From Monitor] Respiratory 14 14 14 Rate Respiratory Rate [Anterior Bilateral Throughout] Blood Pressure 124/60 93/51 106/48 O2 Sat by Pulse 98 98 99 Oximetry 05/13/22 05/13/22 05/13/22 03:01 03:05 03:11 Temperature Pulse Rate 90 92 H 93 H Pulse Rate [ Anterior Bilateral Throughout] Pulse Rate [ From Monitor] Respiratory 13 13 14 Rate Respiratory Rate [Anterior Bilateral Throughout] Blood Pressure 99/46 107/56 112/55 O2 Sat by Pulse 98 98 98 Oximetry 05/13/22 05/13/22 05/13/22 03:15 03:21 03:25 Temperature Pulse Rate 91 H 96 H 97 H Pulse Rate [ Anterior Bilateral Throughout] Pulse Rate [ From Monitor] Respiratory 14 15 14 Rate Respiratory Rate [Anterior Bilateral Throughout] Blood Pressure 107/52 111/60 110/58 O2 Sat by Pulse 98 98 98 Oximetry 05/13/22 05/13/22 05/13/22 03:31 03:35 03:41 Temperature Pulse Rate 93 H 94 H 85 Pulse Rate [ Anterior Bilateral Throughout] Pulse Rate [ From Monitor] Respiratory 14 14 14 Rate Respiratory Rate [Anterior Bilateral Throughout] Blood Pressure 117/51 102/48 91/46 O2 Sat by Pulse 98 98 98 Oximetry 05/13/22 05/13/22 05/13/22 03:45 03:51 03:55 Temperature Pulse Rate 85 92 H 92 H Pulse Rate [ Anterior Bilateral Throughout] Pulse Rate [ From Monitor] Respiratory 14 14 14 Rate Respiratory Rate [Anterior Bilateral Throughout] Blood Pressure 112/45 100/60 86/44 O2 Sat by Pulse 98 98 98 Oximetry 05/13/22 05/13/22 05/13/22 04:00 04:01 04:05 Temperature 98.2 F Pulse Rate 86 91 H Pulse Rate [ Anterior Bilateral Throughout] Pulse Rate [ From Monitor] Respiratory 14 12 Rate Respiratory Rate [Anterior Bilateral Throughout] Blood Pressure 100/44 88/53 O2 Sat by Pulse 98 98 Oximetry 05/13/22 05/13/22 05/13/22 04:11 04:14 04:15 Temperature Pulse Rate 93 H 84 97 H Pulse Rate [ Anterior Bilateral Throughout] Pulse Rate [ From Monitor] Respiratory 13 13 Rate Respiratory Rate [Anterior Bilateral Throughout] Blood Pressure 113/62 93/43 119/59 O2 Sat by Pulse 99 98 98 Oximetry 05/13/22 05/13/22 05/13/22 04:21 04:25 04:30 Temperature Pulse Rate 99 H 99 H 98 H Pulse Rate [ Anterior Bilateral Throughout] Pulse Rate [ From Monitor] Respiratory 14 15 16 Rate Respiratory Rate [Anterior Bilateral Throughout] Blood Pressure 122/65 125/59 117/62 O2 Sat by Pulse 98 98 98 Oximetry 05/13/22 05/13/22 05/13/22 04:35 04:40 04:45 Temperature Pulse Rate 86 88 94 H Pulse Rate [ Anterior Bilateral Throughout] Pulse Rate [ From Monitor] Respiratory 14 14 15 Rate Respiratory Rate [Anterior Bilateral Throughout] Blood Pressure 99/45 99/48 114/63 O2 Sat by Pulse 99 98 98 Oximetry 05/13/22 05/13/22 05/13/22 04:50 04:55 05:00 Temperature Pulse Rate 95 H 107 H 106 H Pulse Rate [ Anterior Bilateral Throughout] Pulse Rate [ From Monitor] Respiratory 15 13 15 Rate Respiratory Rate [Anterior Bilateral Throughout] Blood Pressure 116/58 139/82 118/54 O2 Sat by Pulse 98 97 98 Oximetry 05/13/22 05/13/22 05:05 05:11 Temperature Pulse Rate 103 H 103 H Pulse Rate [ Anterior Bilateral Throughout] Pulse Rate [ From Monitor] Respiratory 19 17 Rate Respiratory Rate [Anterior Bilateral Throughout] Blood Pressure 99/46 O2 Sat by Pulse 98 97 Oximetry - General Appearance General appearance: well-developed, well-nourished, intubated EENT: ATNC, other (ETT in place) Respiratory: Present: Other (coarse breath sounds) Cardiology: regular Gastrointestinal: no tenderness, no distended Integumentary: warm and dry Musculoskeletal: other (upper/lower extremtiy edema) - Lab 05/13/22 04:00 05/12/22 06:00 Most recent lab results ABG pH 7.421 pH Units (7.350-7.450) 05/08/22 21:00 ABG pCO2 42.4 mm Hg 05/08/22 21:00 ABG pO2 68.8 mm Hg (80.0-90.0) L 05/08/22 21:00 ABG HCO3 27.0 mmol/L (20.0-26.0) H 05/08/22 21:00 ABG O2 Saturation 95.7 % (95.0-99.0) 05/08/22 21:00 Calcium 8.7 mg/dL (8.4-10.2) 05/12/22 06:00 Phosphorus 3.00 mg/dL (2.5-4.5) D 05/09/22 04:25 Magnesium 1.80 mg/dL (1.7-2.3) 05/09/22 04:25 Medications & Allergies - Medications Allergies/Adverse Reactions: Allergies buspirone [From BuSpar] Allergy (Verified 04/18/22 12:22) Unknown Penicillins Allergy (Verified 04/18/22 12:22) Rash corn Adverse Reaction (Verified 04/18/22 12:22) Unknown Home Medications: Home Medications Medication Instructions Recorded Confirmed Last Taken Type Sevelamer Carbonate [Renvela] 0.8 gram PO TIDWM 09/02/20 02/02/22 05/31/21 History HYDROcodone/APAP 5-325 [[place] 1 each PO Q4HR PRN #30 tablet 05/18/21 02/02/22 Unknown Rx 5-325 mg TAB] ALBUTEROL NEB's [Proventil 0.083% 2.5 mg IH Q3HRT PRN #1 nebu 03/03/22 Unknown Rx NEBS] Clopidogrel [Plavix] 75 mg PO QDAY #90 tablet 03/03/[address] [Depakote Dr] 750 mg PO BID #60 tablet 03/03/22 Unknown Rx LORazepam [Ativan] 1 mg PO DAILY #30 tab 03/03/22 Unknown Rx Memantine Xr [Namenda Xr] 5 mg PO DAILY #30 cap 03/03/22 Unknown Rx Midodrine [Proamatine] 10 mg PO TID #90 tab 03/03/22 Unknown Rx Pantoprazole [Protonix TAB] 40 mg PO DAILY #30 tab 03/03/22 Unknown Rx QUEtiapine [SEROquel] 400 mg PO BID #60 tab 03/03/22 Unknown Rx risperiDONE [RisperDAL] 0.5 mg PO BID #60 tab 03/03/22 Unknown Rx Active Medications: Generic Name Dose Route Start Last Admin Trade Name Freq PRN Reason Stop Dose Admin Acetaminophen 650 mg 04/22/22 20:12 05/12/22 23:29 Acetaminophen 325 Mg/10.15 Ml Oral Liqd Unit Dose PO 650 mg Q6H PRN Administration Pain MILD(1-3)/Fever >100.5/DRAKE Albumin Human 25 gm 04/21/22 13:00 04/22/22 16:31 Albumin Human 25% (25 Gm/100 Ml) Inj IV 25 gm BIANCA PRN Administration Hypotension Albuterol 2.5 mg 04/21/22 08:30 04/24/22 16:51 Albuterol 2.5 Mg/3 Ml Nebu IH 2.5 mg Q3HRT PRN Administration Shortness Of Breath Albuterol/Ipratropium 1 ampul 04/21/22 14:00 05/12/22 20:10 Ipratropium/Albuterol Sulfate 3 Ml Ampul.Neb IH 1 ampul TIDRT CONNOR Administration Docusate Sodium 100 mg 05/01/22 22:00 05/12/22 21:06 Docusate Sodium 100 Mg/10 Ml Oral Liqd FEEDTUBE Not Given BID CONNOR Epoetin Lb-epbx 20,000 unit 04/23/22 12:00 05/09/22 14:58 Epoetin Lb-Epbx 20,000 Unit/1 Ml Vial IV 20,000 unit BIANCA PRN Administration HEMODIALYSIS Fentanyl 50 mcg 05/03/22 10:29 05/05/22 12:23 Fentanyl 100 Mcg/2 Ml Inj IV 25 mcg Q10MIN PRN Administration ANALGESIA Sodium Chloride 100 mls @ 999 mls/hr 04/22/22 09:12 Nacl 0.9% IV BIANCA PRN Hypotension Fentanyl Citrate 2,000 mcg in 100 mls @ 2.722 mls/hr 05/03/22 11:00 Fentanyl Drip Premix IV TITR CONNOR Protocol 1 MCG/KG/HR Vasopressin 20 unit/ Sodium 101 mls @ 9.09 mls/hr 05/04/22 00:30 05/06/22 11:21 Chloride IV 0 units/min TITR CONNOR 0 mls/hr Infusion 0.03 UNITS/MIN Vancomycin HCl 750 mg/ Sodium 265 mls @ 166.667 mls/hr 05/09/22 22:00 05/12/22 00:34 Chloride IV 05/13/22 21:59 166.667 mls/hr TuThSa CONNOR Administration NORepinephrine/NS 8 MG-250 ML 8 mg in 250 mls @ 3.75 mls/hr 05/11/22 21:23 05/13/22 05:19 Norepinephrine/Ns 8 Mg-250 Ml (Double Conc) IV 8 mcg/min TITRATE CONNOR 15 mls/hr Administration Protocol 2 MCG/MIN Cefepime HCl 1 gm in 100 mls @ 200 mls/hr 05/12/22 18:00 05/12/22 17:34 Cefepime/Ns 1 Gm/100 Ml IV 05/14/22 18:29 200 mls/hr Q24H CONNOR Administration Protocol Lansoprazole 30 mg 04/23/22 10:00 05/12/22 09:35 Lansoprazole 30 Mg Solutab FEEDTUBE 30 mg QDAY CONNOR Administration Lorazepam 0.5 mg 04/25/22 09:59 Lorazepam 0.5 Mg Tab FEEDTUBE QDAY PRN Anxiety Memantine 5 mg 04/25/22 10:00 05/12/22 21:00 Memantine 5 Mg Tab FEEDTUBE 5 mg BID CONNOR Administration Metoclopramide HCl 5 mg 04/19/22 09:55 Metoclopramide 10 Mg/2 Ml Inj IV Q6H PRN Nausea And Vomiting Midodrine 20 mg 04/26/22 14:00 05/12/22 21:00 Midodrine 10 Mg Tab FEEDTUBE 20 mg TID CONNOR Administration Naloxone HCl 0.1 mg 04/19/22 09:55 Naloxone 0.4 Mg/1 Ml Inj IV Q2MIN PRN Res Rate </= 8 or 02 SAT < 92% Polyethylene Glycol 17 gm 05/03/22 10:00 05/12/22 09:25 Polyethylene Glycol 3350 17 Gm Powder FEEDTUBE Not Given QDAY CONNOR Risperidone 0.5 mg 04/25/22 11:00 05/12/22 21:05 Risperidone 1 Mg Tab FEEDTUBE 0.5 mg BID CONNOR Administration Scopolamine 1 each 05/02/22 10:00 05/11/22 09:13 Scopolamine Transdermal Patch 72 Hr TD 1 each Q3D CONNOR Administration Senna 17.2 mg 04/23/22 10:00 05/12/22 21:06 Sennosides 8.6 Mg Tab FEEDTUBE Not Given BID CONNOR Sodium Chloride 10 ml 04/19/22 12:00 05/12/22 21:00 Sodium Chloride 0.9% 10 Ml Flush Syringe IV 10 ml BID CONNOR Administration Sodium Chloride 10 ml 04/19/22 11:19 Sodium Chloride 0.9% 10 Ml Flush Syringe IV PRN PRN LINE FLUSH Valproic Acid 750 mg 04/22/22 22:00 05/12/22 21:00 Valproic Acid 250 Mg/5 Ml Oral Liqd FEEDTUBE 750 mg BID CONNOR Administration
[2022-05-13] MEDS: IPRATROPIUM/ALBUTEROL SULFATE 3 ML AMPUL.NEB IH SCH ×3 (07:49→20:36)
--- NOTE | 2022-05-13 08:06 | Progress Note ---
Assessment and Plan Patient is a 66-year-old female medical history of hypertension, GERD, seizure disorder, vascular dementia, ESRD on hemodialysis (TTS), osteoarthritis, bipolar disorder, schizophrenia, anxiety disorder, Liver disease and limited mobility currently a resident of [facility] and presented with altered mental status. Patient was initially seen here in the ED the day prior and was discharged but documentation on the chart as patient is currently with altered mental status and unable to provide information shows that the patient was refused by the facility stating that she had been combative and has missed several days of dialysis as a result of behavioral disturbance. On presentation patient was noted to be hypotensive more than normal and was noted with room air oxygen saturation in the 70s and unfortunately went into SVT in the 150s requiring cardiac shock being delivered under conscious sedation. Review of her charts from prior shows that her systolic blood pressure runs in the 80s and she is on midodrine outpatient. Patient started on pressors During one of her last hospitalization she was recommended to have a cholecystectomy which does not appear that was done at the time. She does not complaining any abdominal pain at this time. During that last admission also she had acute hypoxic respiratory failure but was weaned down to room air prior to discharge Patients past surgical history Hysterectomy and right upper extrmity Fistula. According to the chart, no hstory of smoking, alcohol or drug abuse. Patient admitted for Acute hypoxemic respiratory failure; Shock / Hypotension; AMS; SVT; NSTEMI; Schizophrenia; ESRD on Dialysis; Moderate protein caloric malnutrition Patient reintubated recently. Patient also hypotensive.Patient is on vasopressor levophed. Patient presently on assist control mechanical ventilation, Rate 14, tidal volume 450, FIO2 30%, PEEP 6 and O2 saturation running 98%. Patient sleeping, not responding to verbal stimuli. Patient afebrile. Has leukocytosis. Blood pressure 122/61 , Pulse 99, respirations 15. Chest xray 04/22/22 reported New moderate right and trace left pleural effusions with minimal streaky airspace disease in the right midlung. CTA of chest 05/09/[address] evidence for pulmonary embolism. Large right and moderate-sized left pleural effusions with moderate body wall edema. Groundglass pulmonary opacities in the upper lobes likely representing atypical pneumonia. Patient undergone ultrasound guided thoracentesis on 05/09/22 .Total of 1000 mL of clear yellow fluid was aspirated. The patient tolerated the procedure well with no complications. A post- procedure chest x-ray was immediately ordered. IMPRESSION: Successful ultrasound-guided right thoracentesis. Pleural fluid reported yellow and clear, wbc 21, rbc 12. Pleural fluid protien and LDH levels still pending. Chest xray done 05/10/22 repoirted No adverse interval change in the chest given the difference in technique. Nodular density possibly calcified left midlung is stable. Satisfactory positioning of endotracheal tube. Patient is on I/V Norepinephrine, Vasopressin, Albuterol/atrovent aerosol treatments, Prevacid, Cefepime and vancomycin. I spent critical care time of 45 minutes reviewing the chart, examine the patie nt, review chest xray,CT scan of chest, lab results, talking to the nursing staff ,respiratory therapy and work up plan of treatment in this critically ill patient with multiple medical problems. - Patient Problems (1) Acute respiratory failure with hypoxia Current Visit: No Status: Acute Plan to address problem: Mechanical ventilation ,Assist control, rate 14, tidal volume 450, FIO2 30%, PEEP 6 Albuterol/atrovent aerosol treatments q 6 hours. Continue Prevacid. Recommend DVT prophylaxis. (2) Altered mental status Current Visit: Yes Status: Acute Plan to address problem: Likely from metabolic encephalopathy and senile dementia. Management as per primary care and neurology. (3) Uremic encephalopathy Current Visit: Yes Status: Acute Plan to address problem: Patient missed dialysis. Patient back on dialysis. (4) ESRD (end stage renal disease) on dialysis Current Visit: Yes Status: Chronic Plan to address problem: Patient is on dialysis. Management as per Nephrology. (5) Hypotension Current Visit: Yes Status: Chronic Qualifiers: Plan to address problem: Patient is on Nor epinephrine. and vasopressin. (6) Bipolar disorder Current Visit: No Status: Acute Plan to address problem: Recommend to consult psychiatry. Management as per primary care and Psychiatry. (7) GERD (gastroesophageal reflux disease) Current Visit: No Status: Acute Plan to address problem: Patient is on Prevacid. (8) Seizure disorder Current Visit: No Status: Chronic Plan to address problem: Management as per primary care and neurology. (9) T2DM (type 2 diabetes mellitus) Current Visit: No Status: Chronic Qualifiers: Diabetes mellitus continuous churn buttermaker insulin use: unspecified continuous churn buttermaker insulin use status Plan to address problem: Management as per primary care. (10) Pleural effusion Current Visit: No Status: Acute Plan to address problem: Patient undergone ultrasound guided thoracentesis on 05/09/22 .Total of 1000 mL of clear yellow fluid was aspirated. The patient tolerated the procedure well with no complications. Pleural fluid reported yellow and clear, wbc 21, rbc 12. Pleural fluid protien and LDH levels still pending. Subjective Date of service: 05/13/22 Principal diagnosis: Neurogenic Dysphagia Interval history: Patient is a 66-year-old female medical history of hypertension, GERD, seizure disorder, vascular dementia, ESRD on hemodialysis (TTS), osteoarthritis, bipolar disorder, schizophrenia, anxiety disorder, Liver disease and limited mobility currently a resident of [facility] and presented with altered mental status. Patient was initially seen here in the ED the day prior and was discharged but documentation on the chart as patient is currently with altered mental status and unable to provide information shows that the patient was refused by the facility stating that she had been combative and has missed several days of dialysis as a result of behavioral disturbance. On presentation patient was noted to be hypotensive more than normal and was noted with room air oxygen saturation in the 70s and unfortunately went into SVT in the 150s requiring cardiac shock being delivered under conscious sedation. Review of her charts from prior shows that her systolic blood pressure runs in the 80s and she is on midodrine outpatient. Patient started on pressors During one of her last hospitalization she was recommended to have a cholecystectomy which does not appear that was done at the time. She does not complaining any abdominal pain at this time. During that last admission also she had acute hypoxic respiratory failure but was weaned down to room air prior to discharge Patients past surgical history Hysterectomy and right upper extrmity Fistula. According to the chart, no hstory of smoking, alcohol or drug abuse. Patient admitted for Acute hypoxemic respiratory failure; Shock / Hypotension; AMS; SVT; NSTEMI; Schizophrenia; ESRD on Dialysis; Moderate protein caloric malnutrition Patient reintubated recently. Patient also hypotensive.Patient is on vasopressor levophed. Patient presently on assist control mechanical ventilation, Rate 14, tidal volume 450, FIO2 30%, PEEP 6 and O2 saturation running 98%. Patient sleeping, not responding to verbal stimuli. Patient afebrile. Has leukocytosis. Blood pressure 122/61 , Pulse 99, respirations 15. Chest xray 04/22/22 reported New moderate right and trace left pleural effusions with minimal streaky airspace disease in the right midlung. CTA of chest 05/09/[address] evidence for pulmonary embolism. Large right and moderate-sized left pleural effusions with moderate body wall edema. Groundglass pulmonary opacities in the upper lobes likely representing atypical pneumonia. Patient undergone ultrasound guided thoracentesis on 05/09/22 .Total of 1000 mL of clear yellow fluid was aspirated. The patient tolerated the procedure well with no complications. A post- procedure chest x-ray was immediately ordered. IMPRESSION: Successful ultrasound-guided right thoracentesis. Pleural fluid reported yellow and clear, wbc 21, rbc 12. Pleural fluid protien and LDH levels still pending. Chest xray done 05/10/22 repoirted No adverse interval change in the chest given the difference in technique. Nodular density possibly calcified left midlung is stable. Satisfactory positioning of endotracheal tube. Patient is on I/V Norepinephrine, Vasopressin, Albuterol/atrovent aerosol treatments, Prevacid, Cefepime and vancomycin. Objective Vital Signs - 12hr 05/12/22 05/12/22 05/12/22 20:05 20:10 20:15 Temperature Pulse Rate 103 H 102 H 107 H Respiratory 13 14 15 Rate Blood Pressure 114/66 119/52 119/52 O2 Sat by Pulse 98 99 100 Oximetry 05/12/22 05/12/22 05/12/22 20:21 20:25 20:30 Temperature Pulse Rate 110 H 97 H 100 H Respiratory 21 14 14 Rate Blood Pressure 137/56 137/56 118/47 O2 Sat by Pulse 100 100 100 Oximetry 05/12/22 05/12/22 05/12/22 20:35 20:40 20:45 Temperature Pulse Rate 103 H 103 H 103 H Respiratory 14 14 13 Rate Blood Pressure 118/47 121/49 121/49 O2 Sat by Pulse 99 99 100 Oximetry 05/12/22 05/12/22 05/12/22 20:50 20:55 21:00 Temperature Pulse Rate 101 H 104 H Respiratory 14 13 15 Rate Blood Pressure 122/49 122/49 O2 Sat by Pulse 98 98 99 Oximetry 05/12/22 05/12/22 05/12/22 21:01 21:05 21:10 Temperature Pulse Rate 104 H 109 H 99 H Respiratory 14 15 12 Rate Blood Pressure 122/50 122/50 114/43 O2 Sat by Pulse 99 97 99 Oximetry 05/12/22 05/12/22 05/12/22 21:15 21:20 21:25 Temperature Pulse Rate 106 H 107 H 102 H Respiratory 14 22 13 Rate Blood Pressure 114/43 122/55 122/55 O2 Sat by Pulse 99 100 100 Oximetry 05/12/22 05/12/22 05/12/22 21:30 21:35 21:40 Temperature Pulse Rate 99 H 99 H 96 H Respiratory 14 14 14 Rate Blood Pressure 104/41 104/41 93/42 O2 Sat by Pulse 100 98 100 Oximetry 05/12/22 05/12/22 05/12/22 21:45 21:50 21:55 Temperature Pulse Rate 96 H 94 H 95 H Respiratory 14 13 14 Rate Blood Pressure 93/42 100/41 100/41 O2 Sat by Pulse 99 100 100 Oximetry 05/12/22 05/12/22 05/12/22 22:00 22:05 22:10 Temperature Pulse Rate 97 H 92 H 92 H Respiratory 13 14 14 Rate Blood Pressure 99/42 99/42 96/38 O2 Sat by Pulse 100 99 100 Oximetry 05/12/22 05/12/22 05/12/22 22:15 22:20 22:25 Temperature Pulse Rate 91 H 87 95 H Respiratory 14 14 14 Rate Blood Pressure 96/38 101/38 111/38 O2 Sat by Pulse 99 100 100 Oximetry 05/12/22 05/12/22 05/12/22 22:31 22:35 22:41 Temperature Pulse Rate 93 H 94 H 92 H Respiratory 14 14 14 Rate Blood Pressure 96/36 93/41 107/35 O2 Sat by Pulse 100 99 99 Oximetry 05/12/22 05/12/22 05/12/22 22:45 22:51 22:55 Temperature Pulse Rate 92 H 86 97 H Respiratory 14 14 11 L Rate Blood Pressure 105/40 100/43 103/58 O2 Sat by Pulse 100 100 98 Oximetry 05/12/22 05/12/22 05/12/22 23:00 23:05 23:10 Temperature Pulse Rate 97 H 93 H 105 H Respiratory 14 14 14 Rate Blood Pressure 122/49 108/43 131/48 O2 Sat by Pulse 100 100 99 Oximetry 05/12/22 05/12/22 05/12/22 23:11 23:15 23:20 Temperature Pulse Rate 97 H 91 H 91 H Respiratory 14 14 14 Rate Blood Pressure 115/45 100/35 103/43 O2 Sat by Pulse 99 99 100 Oximetry 05/12/22 05/12/22 05/12/22 23:25 23:26 23:29 Temperature 101.9 F H 101.9 F H Pulse Rate 98 H Respiratory 15 14 Rate Blood Pressure 130/38 O2 Sat by Pulse 100 Oximetry 05/12/22 05/12/22 05/12/22 23:30 23:35 23:40 Temperature Pulse Rate 93 H 92 H 92 H Respiratory 14 14 14 Rate Blood Pressure 116/42 97/30 117/39 O2 Sat by Pulse 99 100 99 Oximetry 05/12/22 05/12/22 05/12/22 23:45 23:50 23:55 Temperature Pulse Rate 87 88 88 Respiratory 14 14 14 Rate Blood Pressure 95/35 97/37 83/35 O2 Sat by Pulse 99 99 99 Oximetry 05/13/22 05/13/22 05/13/22 00:00 00:05 00:10 Temperature Pulse Rate 87 93 H 92 H Respiratory 14 14 14 Rate Blood Pressure 88/35 86/43 75/36 O2 Sat by Pulse 98 98 98 Oximetry 05/13/22 05/13/22 05/13/22 00:15 00:20 00:25 Temperature Pulse Rate 88 95 H 100 H Respiratory 14 14 14 Rate Blood Pressure 91/39 116/47 126/63 O2 Sat by Pulse 98 98 98 Oximetry 05/13/22 05/13/22 05/13/22 00:29 00:30 00:35 Temperature Pulse Rate 102 H 102 H Respiratory 14 16 14 Rate Blood Pressure 135/65 116/47 O2 Sat by Pulse 98 98 Oximetry 05/13/22 05/13/22 05/13/22 00:36 00:40 00:45 Temperature Pulse Rate 101 H 102 H 101 H Respiratory 16 14 Rate Blood Pressure 127/65 131/65 136/63 O2 Sat by Pulse 98 98 98 Oximetry 05/13/22 05/13/22 05/13/22 00:51 00:55 01:00 Temperature Pulse Rate 93 H 98 H 96 H Respiratory 14 14 15 Rate Blood Pressure 114/51 114/60 118/58 O2 Sat by Pulse 98 98 98 Oximetry 05/13/22 05/13/22 05/13/22 01:05 01:10 01:15 Temperature Pulse Rate 96 H 95 H 90 Respiratory 14 14 14 Rate Blood Pressure 110/57 126/55 105/50 O2 Sat by Pulse 98 98 98 Oximetry 05/13/22 05/13/22 05/13/22 01:20 01:25 01:30 Temperature Pulse Rate 90 95 H 98 H Respiratory 14 13 14 Rate Blood Pressure 106/50 99/54 118/63 O2 Sat by Pulse 98 98 97 Oximetry 05/13/22 05/13/22 05/13/22 01:35 01:40 01:45 Temperature Pulse Rate 93 H 94 H 96 H Respiratory 14 14 15 Rate Blood Pressure 108/55 102/52 112/58 O2 Sat by Pulse 99 98 98 Oximetry 05/13/22 05/13/22 05/13/22 01:51 01:55 02:01 Temperature Pulse Rate 94 H 94 H 86 Respiratory 14 13 14 Rate Blood Pressure 101/47 89/53 99/44 O2 Sat by Pulse 98 99 98 Oximetry 05/13/22 05/13/22 05/13/22 02:05 02:11 02:15 Temperature Pulse Rate 98 H 90 89 Respiratory 14 14 15 Rate Blood Pressure 127/59 92/44 106/45 O2 Sat by Pulse 98 98 98 Oximetry 05/13/22 05/13/22 05/13/22 02:21 02:25 02:31 Temperature Pulse Rate 93 H 96 H 94 H Respiratory 15 12 14 Rate Blood Pressure 109/56 124/64 116/54 O2 Sat by Pulse 98 98 98 Oximetry 05/13/22 05/13/22 05/13/22 02:35 02:41 02:45 Temperature Pulse Rate 88 93 H 96 H Respiratory 14 15 14 Rate Blood Pressure 91/45 97/52 124/60 O2 Sat by Pulse 99 98 98 Oximetry 05/13/22 05/13/22 05/13/22 02:51 02:55 03:01 Temperature Pulse Rate 94 H 90 90 Respiratory 14 14 13 Rate Blood Pressure 93/51 106/48 99/46 O2 Sat by Pulse 98 99 98 Oximetry 05/13/22 05/13/22 05/13/22 03:05 03:11 03:15 Temperature Pulse Rate 92 H 93 H 91 H Respiratory 13 14 14 Rate Blood Pressure 107/56 112/55 107/52 O2 Sat by Pulse 98 98 98 Oximetry 05/13/22 05/13/22 05/13/22 03:21 03:25 03:31 Temperature Pulse Rate 96 H 97 H 93 H Respiratory 15 14 14 Rate Blood Pressure 111/60 110/58 117/51 O2 Sat by Pulse 98 98 98 Oximetry 05/13/22 05/13/22 05/13/22 03:35 03:41 03:45 Temperature Pulse Rate 94 H 85 85 Respiratory 14 14 14 Rate Blood Pressure 102/48 91/46 112/45 O2 Sat by Pulse 98 98 98 Oximetry 05/13/22 05/13/22 05/13/22 03:51 03:55 04:00 Temperature 98.2 F Pulse Rate 92 H 92 H Respiratory 14 14 Rate Blood Pressure 100/60 86/44 O2 Sat by Pulse 98 98 Oximetry 05/13/22 05/13/22 05/13/22 04:01 04:05 04:11 Temperature Pulse Rate 86 91 H 93 H Respiratory 14 12 13 Rate Blood Pressure 100/44 88/53 113/62 O2 Sat by Pulse 98 98 99 Oximetry 05/13/22 05/13/22 05/13/22 04:14 04:15 04:21 Temperature Pulse Rate 84 97 H 99 H Respiratory 13 14 Rate Blood Pressure 93/43 119/59 122/65 O2 Sat by Pulse 98 98 98 Oximetry 05/13/22 05/13/22 05/13/22 04:25 04:30 04:35 Temperature Pulse Rate 99 H 98 H 86 Respiratory 15 16 14 Rate Blood Pressure 125/59 117/62 99/45 O2 Sat by Pulse 98 98 99 Oximetry 05/13/22 05/13/22 05/13/22 04:40 04:45 04:50 Temperature Pulse Rate 88 94 H 95 H Respiratory 14 15 15 Rate Blood Pressure 99/48 114/63 116/58 O2 Sat by Pulse 98 98 98 Oximetry 05/13/22 05/13/22 05/13/22 04:55 05:00 05:05 Temperature Pulse Rate 107 H 106 H 103 H Respiratory 13 15 19 Rate Blood Pressure 139/82 118/54 99/46 O2 Sat by Pulse 97 98 98 Oximetry 05/13/22 05/13/22 05/13/22 05:10 05:11 05:15 Temperature Pulse Rate 111 H 103 H 101 H Respiratory 20 17 14 Rate Blood Pressure 124/60 99/51 O2 Sat by Pulse 97 97 96 Oximetry 05/13/22 05/13/22 05/13/22 05:20 05:25 05:31 Temperature Pulse Rate 95 H 93 H 102 H Respiratory 14 14 15 Rate Blood Pressure 88/43 82/41 113/56 O2 Sat by Pulse 96 97 97 Oximetry 05/13/22 05/13/22 05/13/22 05:35 05:40 05:45 Temperature Pulse Rate 103 H 98 H 87 Respiratory 15 14 14 Rate Blood Pressure 116/59 111/57 80/40 O2 Sat by Pulse 97 97 97 Oximetry 05/13/22 05/13/22 05/13/22 05:50 05:55 06:00 Temperature Pulse Rate 100 H 101 H 99 H Respiratory 15 15 15 Rate Blood Pressure 129/59 146/62 114/60 O2 Sat by Pulse 97 97 98 Oximetry 05/13/22 05/13/22 05/13/22 06:05 06:10 06:15 Temperature Pulse Rate 87 102 H 92 H Respiratory 14 15 14 Rate Blood Pressure 85/44 130/62 124/61 O2 Sat by Pulse 97 98 97 Oximetry 05/13/22 05/13/22 05/13/22 06:20 06:25 06:30 Temperature Pulse Rate 90 93 H 83 Respiratory 14 14 14 Rate Blood Pressure 90/45 85/42 94/42 O2 Sat by Pulse 97 97 98 Oximetry 05/13/22 05/13/22 05/13/22 06:35 06:40 06:45 Temperature Pulse Rate 85 84 83 Respiratory 14 14 14 Rate Blood Pressure 82/42 80/40 79/42 O2 Sat by Pulse 98 98 98 Oximetry 05/13/22 05/13/22 05/13/22 06:50 06:55 07:00 Temperature Pulse Rate 93 H 94 H 95 H Respiratory 15 14 15 Rate Blood Pressure 113/56 89/48 113/57 O2 Sat by Pulse 99 99 99 Oximetry 05/13/22 05/13/22 07:05 07:59 Temperature 98.5 F Pulse Rate 88 Respiratory 14 Rate Blood Pressure 102/49 O2 Sat by Pulse 99 Oximetry Constitutional: no acute distress, asleep, other (Sedated. Resting assist control mechanical ventilation.) Eyes: non-icteric ENT: oropharynx moist, oropharyngeal exudate pre (clear frothy) Neck: supple, no lymphadenopathy, no JVD Effort: mildly labored Ascultation: Bilateral: diminished breath sounds Percussion: Bilateral: not dull Cardiovascular: regular rate and rhythm, other (S1,S2) Gastrointestinal: normoactive bowel sounds, soft, non-tender, non-distended, other (PEG) Integumentary: normal Extremities: no cyanosis, no edema, pulses normal, no ischemia or petechiae Neurologic: non-focal exam (grossly), pupils equal and round, other (sedated resting on mechanical ventilation.) Psychiatric: other (Sedated, sleeping. Not responding to verbal stimuli.) CBC and BMP: 05/13/22 04:00 05/13/22 04:00 ABG, PT/INR, D-dimer: ABG ABG pH 7.421 pH Units (7.350-7.450) 05/08/22 21:00 ABG pCO2 42.4 mm Hg 05/08/22 21:00 ABG pO2 68.8 mm Hg (80.0-90.0) L 05/08/22 21:00 ABG O2 Saturation 95.7 % (95.0-99.0) 05/08/22 21:00 PT/INR, D-dimer PT 15.4 Sec. (12.2-14.9) H 05/12/22 04:11 INR 1.09 (0.87-1.13) 05/12/22 04:11 Abnormal lab findings: Abnormal Labs 04/19/22 04/19/22 04/19/22 04:53 04:53 04:53 WBC RBC 3.06 L Hgb 8.6 L Hct 28.0 L RDW 16.3 H Plt Count Lymph % (Auto) [place] % (Auto) 11.3 H Lymph # (Auto) [place] # (Auto) Seg Neutrophils % Seg Neuts % (Manual) Lymphocytes % (Manual) Nucleated RBC % Seg Neutrophils # Seg Neutrophils # Man Lymphocytes # (Manual) PT INR APTT Heparin Anti-Xa Level ABG pH ABG pO2 ABG HCO3 ABG Base Excess ABG Hemoglobin Oxyhemoglobin Sodium Potassium 5.1 H Chloride Carbon Dioxide 21 L BUN 94 H Creatinine 6.3 H Glucose POC Glucose Phosphorus Magnesium Alkaline Phosphatase Troponin T 0.415 H* Total Protein Albumin 2.7 L Free T4 0.28 L Crossmatch 04/19/22 04/19/22 04/20/22 19:40 19:40 05:30 WBC 4.1 L RBC 2.97 L Hgb 8.5 L 8.2 L Hct 27.8 L 27.1 L RDW 17.0 H Plt Count Lymph % (Auto) [place] % (Auto) 15.2 H Lymph # (Auto) 1.1 L [place] # (Auto) Seg Neutrophils % Seg Neuts % (Manual) Lymphocytes % (Manual) Nucleated RBC % Seg Neutrophils # Seg Neutrophils # Man Lymphocytes # (Manual) PT 17.9 H INR 1.28 H APTT 199.1 H* Heparin Anti-Xa Level ABG pH ABG pO2 ABG HCO3 ABG Base Excess ABG Hemoglobin Oxyhemoglobin Sodium Potassium Chloride Carbon Dioxide BUN Creatinine Glucose POC Glucose Phosphorus Magnesium Alkaline Phosphatase Troponin T Total Protein Albumin Free T4 Crossmatch 04/20/22 04/20/22 04/21/22 05:30 18:23 00:29 WBC RBC Hgb Hct RDW Plt Count Lymph % (Auto) [place] % (Auto) Lymph # (Auto) [place] # (Auto) Seg Neutrophils % Seg Neuts % (Manual) Lymphocytes % (Manual) Nucleated RBC % Seg Neutrophils # Seg Neutrophils # Man Lymphocytes # (Manual) PT INR APTT Heparin Anti-Xa Level 0.17 L ABG pH ABG pO2 ABG HCO3 ABG Base Excess ABG Hemoglobin Oxyhemoglobin Sodium Potassium Chloride Carbon Dioxide 21 L BUN 95 H Creatinine 6.6 H Glucose 139 H POC Glucose Phosphorus Magnesium 2.60 H Alkaline Phosphatase Troponin T Total Protein Albumin 2.4 L Free T4 Crossmatch 04/21/22 04/21/22 04/22/22 04:00 04:00 03:45 WBC RBC 2.74 L Hgb 7.7 L Hct 24.7 L RDW 16.6 H Plt Count Lymph % (Auto) [place] % (Auto) Lymph # (Auto) [place] # (Auto) Seg Neutrophils % Seg Neuts % (Manual) Lymphocytes % (Manual) Nucleated RBC % Seg Neutrophils # Seg Neutrophils # Man Lymphocytes # (Manual) PT INR APTT Heparin Anti-Xa Level < 0.10 L ABG pH ABG pO2 ABG HCO3 ABG Base Excess ABG Hemoglobin Oxyhemoglobin Sodium 133 L Potassium Chloride Carbon Dioxide 20 L BUN 89 H Creatinine 6.6 H Glucose 131 H POC Glucose Phosphorus 6.40 H Magnesium 2.50 H Alkaline Phosphatase Troponin T Total Protein Albumin Free T4 Crossmatch 04/22/22 04/22/2222 03:45 12:13 14:30 WBC RBC Hgb Hct RDW Plt Count Lymph % (Auto) [place] % (Auto) Lymph # (Auto) [place] # (Auto) Seg Neutrophils % Seg Neuts % (Manual) Lymphocytes % (Manual) Nucleated RBC % Seg Neutrophils # Seg Neutrophils # Man Lymphocytes # (Manual) PT INR APTT Heparin Anti-Xa Level 0.11 L 0.11 L ABG pH ABG pO2 ABG HCO3 ABG Base Excess ABG Hemoglobin Oxyhemoglobin Sodium 136 L Potassium Chloride Carbon Dioxide 18 L BUN 90 H Creatinine 6.3 H Glucose 121 H POC Glucose Phosphorus 6.50 H Magnesium Alkaline Phosphatase Troponin T Total Protein Albumin Free T4 Crossmatch 04/22/22 04/23/22 04/23/22 23:08 02:17 04:10 WBC RBC Hgb 7.3 L Hct 23.3 L RDW Plt Count Lymph % (Auto) [place] % (Auto) Lymph # (Auto) [place] # (Auto) Seg Neutrophils % Seg Neuts % (Manual) Lymphocytes % (Manual) Nucleated RBC % Seg Neutrophils # Seg Neutrophils # Man Lymphocytes # (Manual) PT INR APTT Heparin Anti-Xa Level 0.14 L ABG pH ABG pO2 ABG HCO3 ABG Base Excess ABG Hemoglobin Oxyhemoglobin Sodium Potassium Chloride Carbon Dioxide BUN Creatinine Glucose POC Glucose 153 H Phosphorus Magnesium Alkaline Phosphatase Troponin T Total Protein Albumin Free T4 Crossmatch 04/23/22 04/23/22 04/23/22 04:10 06:09 23:22 WBC RBC Hgb Hct RDW Plt Count Lymph % (Auto) [place] % (Auto) Lymph # (Auto) [place] # (Auto) Seg Neutrophils % Seg Neuts % (Manual) Lymphocytes % (Manual) Nucleated RBC % Seg Neutrophils # Seg Neutrophils # Man Lymphocytes # (Manual) PT INR APTT Heparin Anti-Xa Level ABG pH ABG pO2 ABG HCO3 ABG Base Excess ABG Hemoglobin Oxyhemoglobin Sodium Potassium Chloride Carbon Dioxide BUN 36 H Creatinine 3.4 H Glucose 131 H POC Glucose 141 H 114 H Phosphorus Magnesium Alkaline Phosphatase Troponin T Total Protein Albumin Free T4 Crossmatch 04/24/22 04/24/22 04/24/22 02:10 04:00 04:00 WBC RBC 2.48 L Hgb 7.1 L Hct 22.6 L RDW 16.9 H Plt Count Lymph % (Auto) [place] % (Auto) Lymph # (Auto) [place] # (Auto) Seg Neutrophils % Seg Neuts % (Manual) Lymphocytes % (Manual) Nucleated RBC % Seg Neutrophils # Seg Neutrophils # Man Lymphocytes # (Manual) PT INR APTT Heparin Anti-Xa Level 0.12 L ABG pH ABG pO2 ABG HCO3 ABG Base Excess ABG Hemoglobin Oxyhemoglobin Sodium 134 L Potassium Chloride Carbon Dioxide BUN 42 H Creatinine 3.9 H Glucose 141 H POC Glucose Phosphorus Magnesium Alkaline Phosphatase Troponin T Total Protein Albumin Free T4 Crossmatch 04/24/22 04/24/22 04/24/22 05:03 10:20 11:24 WBC RBC Hgb Hct RDW Plt Count Lymph % (Auto) [place] % (Auto) Lymph # (Auto) [place] # (Auto) Seg Neutrophils % Seg Neuts % (Manual) Lymphocytes % (Manual) Nucleated RBC % Seg Neutrophils # Seg Neutrophils # Man Lymphocytes # (Manual) PT INR APTT Heparin Anti-Xa Level < 0.10 L ABG pH ABG pO2 ABG HCO3 ABG Base Excess ABG Hemoglobin Oxyhemoglobin Sodium Potassium Chloride Carbon Dioxide BUN Creatinine Glucose POC Glucose 142 H 144 H Phosphorus Magnesium Alkaline Phosphatase Troponin T Total Protein Albumin Free T4 Crossmatch 04/25/22 04/25/22 04/25/22 00:15 04:11 04:11 WBC 4.4 L RBC 2.38 L Hgb 6.7 L Hct 21.7 L RDW 17.2 H Plt Count Lymph % (Auto) [place] % (Auto) Lymph # (Auto) [place] # (Auto) Seg Neutrophils % Seg Neuts % (Manual) Lymphocytes % (Manual) Nucleated RBC % Seg Neutrophils # Seg Neutrophils # Man Lymphocytes # (Manual) PT INR APTT Heparin Anti-Xa Level ABG pH ABG pO2 ABG HCO3 ABG Base Excess ABG Hemoglobin Oxyhemoglobin Sodium 134 L Potassium Chloride 97.1 L Carbon Dioxide BUN 47 H Creatinine 4.3 H Glucose 106 H POC Glucose 136 H Phosphorus Magnesium Alkaline Phosphatase Troponin T Total Protein Albumin Free T4 Crossmatch 04/25/22 04/25/22 04/25/22 06:01 15:30 22:44 WBC RBC Hgb 8.8 L Hct 28.1 L D RDW Plt Count Lymph % (Auto) [place] % (Auto) Lymph # (Auto) [place] # (Auto) Seg Neutrophils % Seg Neuts % (Manual) Lymphocytes % (Manual) Nucleated RBC % Seg Neutrophils # Seg Neutrophils # Man Lymphocytes # (Manual) PT INR APTT Heparin Anti-Xa Level ABG pH ABG pO2 ABG HCO3 ABG Base Excess ABG Hemoglobin Oxyhemoglobin Sodium Potassium Chloride Carbon Dioxide BUN Creatinine Glucose POC Glucose 137 H Phosphorus Magnesium Alkaline Phosphatase Troponin T Total Protein Albumin Free T4 Crossmatch See Detail 04/26/22 04/27/22 04/27/22 04:20 04:45 04:45 WBC RBC 2.81 L 3.13 L Hgb 8.0 L 9.0 L Hct 25.4 L 29.1 L RDW 16.2 H 17.4 H Plt Count Lymph % (Auto) [place] % (Auto) Lymph # (Auto) [place] # (Auto) Seg Neutrophils % Seg Neuts % (Manual) Lymphocytes % (Manual) Nucleated RBC % Seg Neutrophils # Seg Neutrophils # Man Lymphocytes # (Manual) PT INR APTT Heparin Anti-Xa Level ABG pH ABG pO2 ABG HCO3 ABG Base Excess ABG Hemoglobin Oxyhemoglobin Sodium 131 L Potassium Chloride 93.5 L Carbon Dioxide BUN 44 H Creatinine 3.9 H Glucose 135 H POC Glucose Phosphorus Magnesium Alkaline Phosphatase Troponin T Total Protein Albumin Free T4 Crossmatch 04/27/22 04/28/22 04/28/22 23:38 05:26 07:54 WBC 11.1 H RBC 2.40 L Hgb 6.9 L Hct 22.1 L D RDW 17.2 H Plt Count Lymph % (Auto) [place] % (Auto) Lymph # (Auto) [place] # (Auto) Seg Neutrophils % Seg Neuts % (Manual) Lymphocytes % (Manual) Nucleated RBC % Seg Neutrophils # Seg Neutrophils # Man Lymphocytes # (Manual) PT INR APTT Heparin Anti-Xa Level ABG pH ABG pO2 ABG HCO3 ABG Base Excess ABG Hemoglobin Oxyhemoglobin Sodium Potassium Chloride Carbon Dioxide BUN Creatinine Glucose POC Glucose 229 H 169 H Phosphorus Magnesium Alkaline Phosphatase Troponin T Total Protein Albumin Free T4 Crossmatch 04/28/22 04/28/22 04/29/22 12:31 17:54 00:49 WBC RBC Hgb Hct RDW Plt Count Lymph % (Auto) [place] % (Auto) Lymph # (Auto) [place] # (Auto) Seg Neutrophils % Seg Neuts % (Manual) Lymphocytes % (Manual) Nucleated RBC % Seg Neutrophils # Seg Neutrophils # Man Lymphocytes # (Manual) PT INR APTT Heparin Anti-Xa Level ABG pH ABG pO2 ABG HCO3 ABG Base Excess ABG Hemoglobin Oxyhemoglobin Sodium Potassium Chloride Carbon Dioxide BUN Creatinine Glucose POC Glucose 132 H 138 H 189 H Phosphorus Magnesium Alkaline Phosphatase Troponin T Total Protein Albumin Free T4 Crossmatch 04/29/22 04/29/22 04/29/22 06:42 10:54 10:54 WBC 11.8 H RBC 2.93 L Hgb 8.6 L Hct 26.2 L RDW 16.8 H Plt Count Lymph % (Auto) [place] % (Auto) Lymph # (Auto) [place] # (Auto) Seg Neutrophils % Seg Neuts % (Manual) Lymphocytes % (Manual) Nucleated RBC % Seg Neutrophils # Seg Neutrophils # Man Lymphocytes # (Manual) PT INR APTT Heparin Anti-Xa Level ABG pH ABG pO2 ABG HCO3 ABG Base Excess ABG Hemoglobin Oxyhemoglobin Sodium 129 L Potassium Chloride 91.5 L Carbon Dioxide BUN 46 H Creatinine 3.1 H Glucose 180 H POC Glucose 196 H Phosphorus Magnesium Alkaline Phosphatase Troponin T Total Protein Albumin Free T4 Crossmatch 04/29/22 04/29/22 04/30/22 12:03 23:32 05:57 WBC RBC Hgb Hct RDW Plt Count Lymph % (Auto) [place] % (Auto) Lymph # (Auto) [place] # (Auto) Seg Neutrophils % Seg Neuts % (Manual) Lymphocytes % (Manual) Nucleated RBC % Seg Neutrophils # Seg Neutrophils # Man Lymphocytes # (Manual) PT INR APTT Heparin Anti-Xa Level ABG pH ABG pO2 ABG HCO3 ABG Base Excess ABG Hemoglobin Oxyhemoglobin Sodium Potassium Chloride Carbon Dioxide BUN Creatinine Glucose POC Glucose 169 H 170 H 151 H Phosphorus Magnesium Alkaline Phosphatase Troponin T Total Protein Albumin Free T4 Crossmatch 04/30/22 04/30/22 04/30/22 11:28 16:39 23:22 WBC RBC Hgb Hct RDW Plt Count Lymph % (Auto) [place] % (Auto) Lymph # (Auto) [place] # (Auto) Seg Neutrophils % Seg Neuts % (Manual) Lymphocytes % (Manual) Nucleated RBC % Seg Neutrophils # Seg Neutrophils # Man Lymphocytes # (Manual) PT INR APTT Heparin Anti-Xa Level ABG pH ABG pO2 ABG HCO3 ABG Base Excess ABG Hemoglobin Oxyhemoglobin Sodium Potassium Chloride Carbon Dioxide BUN Creatinine Glucose POC Glucose 159 H 147 H 170 H Phosphorus Magnesium Alkaline Phosphatase Troponin T Total Protein Albumin Free T4 Crossmatch 05/01/22 05/01/22 05/01/22 04:00 05:34 15:23 WBC RBC 2.92 L Hgb 8.4 L Hct 26.7 L RDW 16.6 H Plt Count Lymph % (Auto) [place] % (Auto) Lymph # (Auto) [place] # (Auto) Seg Neutrophils % Seg Neuts % (Manual) Lymphocytes % (Manual) Nucleated RBC % Seg Neutrophils # Seg Neutrophils # Man Lymphocytes # (Manual) PT INR APTT Heparin Anti-Xa Level ABG pH ABG pO2 74.2 L ABG HCO3 27.8 H ABG Base Excess ABG Hemoglobin 8.7 L Oxyhemoglobin 94.5 L Sodium Potassium Chloride Carbon Dioxide BUN Creatinine Glucose POC Glucose 140 H Phosphorus Magnesium Alkaline Phosphatase Troponin T Total Protein Albumin Free T4 Crossmatch 05/02/22 05/02/22 05/02/22 05:54 05:54 05:54 WBC RBC 2.85 L Hgb 8.3 L Hct 25.9 L RDW 16.5 H Plt Count Lymph % (Auto) [place] % (Auto) Lymph # (Auto) [place] # (Auto) Seg Neutrophils % Seg Neuts % (Manual) Lymphocytes % (Manual) Nucleated RBC % Seg Neutrophils # Seg Neutrophils # Man Lymphocytes # (Manual) PT INR APTT Heparin Anti-Xa Level ABG pH ABG pO2 ABG HCO3 ABG Base Excess ABG Hemoglobin Oxyhemoglobin Sodium 130 L 128 L Potassium Chloride 90.9 L 90.0 L Carbon Dioxide BUN 49 H 49 H Creatinine 3.7 H 3.8 H Glucose 191 H 184 H POC Glucose Phosphorus Magnesium Alkaline Phosphatase Troponin T Total Protein Albumin Free T4 Crossmatch 05/02/22 05/03/22 05/03/22 14:15 04:24 04:24 WBC RBC 2.71 L Hgb 7.8 L Hct 24.8 L RDW 16.6 H Plt Count Lymph % (Auto) [place] % (Auto) Lymph # (Auto) [place] # (Auto) Seg Neutrophils % Seg Neuts % (Manual) Lymphocytes % (Manual) Nucleated RBC % Seg Neutrophils # Seg Neutrophils # Man Lymphocytes # (Manual) PT INR APTT 39.4 H Heparin Anti-Xa Level ABG pH ABG pO2 ABG HCO3 29.1 H ABG Base Excess 4.3 H ABG Hemoglobin 8.4 L Oxyhemoglobin 94.8 L Sodium Potassium Chloride Carbon Dioxide BUN Creatinine Glucose POC Glucose Phosphorus Magnesium Alkaline Phosphatase Troponin T Total Protein Albumin Free T4 Crossmatch 05/03/22 05/03/22 05/03/22 04:24 15:17 17:30 WBC RBC Hgb Hct RDW Plt Count Lymph % (Auto) [place] % (Auto) Lymph # (Auto) [place] # (Auto) Seg Neutrophils % Seg Neuts % (Manual) Lymphocytes % (Manual) Nucleated RBC % Seg Neutrophils # Seg Neutrophils # Man Lymphocytes # (Manual) PT INR APTT Heparin Anti-Xa Level ABG pH 7.577 H ABG pO2 140.4 H ABG HCO3 26.4 H ABG Base Excess 4.0 H ABG Hemoglobin 5.4 L Oxyhemoglobin Sodium 132 L Potassium Chloride 93.0 L Carbon Dioxide BUN 31 H Creatinine 2.8 H Glucose 119 H POC Glucose 60 L Phosphorus 2.10 L Magnesium Alkaline Phosphatase Troponin T Total Protein Albumin Free T4 Crossmatch 05/03/22 05/04/22 05/04/22 23:33 04:26 04:26 WBC 16.0 H RBC 2.39 L Hgb 6.9 L Hct 21.4 L RDW 15.8 H Plt Count Lymph % (Auto) [place] % (Auto) Lymph # (Auto) [place] # (Auto) Seg Neutrophils % Seg Neuts % (Manual) Lymphocytes % (Manual) Nucleated RBC % Seg Neutrophils # Seg Neutrophils # Man Lymphocytes # (Manual) PT INR APTT Heparin Anti-Xa Level ABG pH ABG pO2 ABG HCO3 ABG Base Excess ABG Hemoglobin Oxyhemoglobin Sodium 133 L Potassium Chloride 94.8 L Carbon Dioxide BUN 34 H Creatinine 3.5 H Glucose 175 H POC Glucose 106 H Phosphorus Magnesium Alkaline Phosphatase Troponin T Total Protein Albumin Free T4 Crossmatch 05/04/22 05/04/22 05/04/22 04:26 05:30 05:40 WBC RBC Hgb Hct RDW Plt Count Lymph % (Auto) [place] % (Auto) Lymph # (Auto) [place] # (Auto) Seg Neutrophils % Seg Neuts % (Manual) Lymphocytes % (Manual) Nucleated RBC % Seg Neutrophils # Seg Neutrophils # Man Lymphocytes # (Manual) PT 17.6 H INR 1.29 H APTT Heparin Anti-Xa Level ABG pH 7.547 H ABG pO2 141.7 H ABG HCO3 27.2 H ABG Base Excess 5.3 H ABG Hemoglobin 6.9 L Oxyhemoglobin Sodium Potassium Chloride Carbon Dioxide BUN Creatinine Glucose POC Glucose Phosphorus Magnesium Alkaline Phosphatase Troponin T Total Protein Albumin Free T4 Crossmatch See Detail 05/04/22 05/04/22 05/04/22 05:41 12:55 18:10 WBC RBC Hgb Hct RDW Plt Count Lymph % (Auto) [place] % (Auto) Lymph # (Auto) [place] # (Auto) Seg Neutrophils % Seg Neuts % (Manual) Lymphocytes % (Manual) Nucleated RBC % Seg Neutrophils # Seg Neutrophils # Man Lymphocytes # (Manual) PT INR APTT Heparin Anti-Xa Level ABG pH ABG pO2 ABG HCO3 ABG Base Excess ABG Hemoglobin Oxyhemoglobin Sodium Potassium Chloride Carbon Dioxide BUN Creatinine Glucose POC Glucose 177 H 141 H 143 H Phosphorus Magnesium Alkaline Phosphatase Troponin T Total Protein Albumin Free T4 Crossmatch 05/05/22 05/05/22 05/05/22 00:05 04:20 04:20 WBC 12.8 H RBC 2.81 L Hgb 8.0 L Hct 24.8 L RDW 16.8 H Plt Count Lymph % (Auto) [place] % (Auto) Lymph # (Auto) [place] # (Auto) Seg Neutrophils % Seg Neuts % (Manual) 86.0 H Lymphocytes % (Manual) 4.0 L Nucleated RBC % 1.0 H Seg Neutrophils # Seg Neutrophils # Man 11.0 H Lymphocytes # (Manual) 0.5 L PT INR APTT Heparin Anti-Xa Level ABG pH ABG pO2 ABG HCO3 ABG Base Excess ABG Hemoglobin Oxyhemoglobin Sodium 130 L Potassium 3.3 L Chloride 94.0 L Carbon Dioxide BUN 24 H Creatinine 2.3 H Glucose 163 H POC Glucose 163 H Phosphorus 1.50 L Magnesium Alkaline Phosphatase Troponin T Total Protein Albumin Free T4 Crossmatch 05/05/22 05/05/22 05/05/22 05:18 10:06 12:11 WBC RBC Hgb Hct RDW Plt Count Lymph % (Auto) [place] % (Auto) Lymph # (Auto) [place] # (Auto) Seg Neutrophils % Seg Neuts % (Manual) Lymphocytes % (Manual) Nucleated RBC % Seg Neutrophils # Seg Neutrophils # Man Lymphocytes # (Manual) PT INR APTT Heparin Anti-Xa Level ABG pH ABG pO2 91.7 H ABG HCO3 27.4 H ABG Base Excess ABG Hemoglobin 11.4 L Oxyhemoglobin Sodium Potassium Chloride Carbon Dioxide BUN Creatinine Glucose POC Glucose 163 H 186 H Phosphorus Magnesium Alkaline Phosphatase Troponin T Total Protein Albumin Free T4 Crossmatch 05/05/22 05/06/22 05/06/22 16:29 04:45 04:59 WBC RBC Hgb Hct RDW Plt Count Lymph % (Auto) [place] % (Auto) Lymph # (Auto) [place] # (Auto) Seg Neutrophils % Seg Neuts % (Manual) Lymphocytes % (Manual) Nucleated RBC % Seg Neutrophils # Seg Neutrophils # Man Lymphocytes # (Manual) PT INR APTT Heparin Anti-Xa Level ABG pH ABG pO2 112.7 H ABG HCO3 ABG Base Excess ABG Hemoglobin 7.8 L Oxyhemoglobin Sodium Potassium Chloride Carbon Dioxide BUN Creatinine Glucose POC Glucose 170 H 146 H Phosphorus Magnesium Alkaline Phosphatase Troponin T Total Protein Albumin Free T4 Crossmatch 05/06/22 05/06/22 05/06/22 05:02 05:02 11:34 WBC RBC 2.78 L Hgb 7.9 L Hct 25.1 L RDW 16.7 H Plt Count 119 L Lymph % (Auto) [place] % (Auto) Lymph # (Auto) [place] # (Auto) Seg Neutrophils % Seg Neuts % (Manual) Lymphocytes % (Manual) Nucleated RBC % Seg Neutrophils # Seg Neutrophils # Man Lymphocytes # (Manual) PT INR APTT Heparin Anti-Xa Level ABG pH ABG pO2 ABG HCO3 ABG Base Excess ABG Hemoglobin Oxyhemoglobin Sodium 135 L Potassium 3.3 L Chloride 97.9 L Carbon Dioxide BUN 30 H Creatinine 2.7 H Glucose 148 H POC Glucose 130 H Phosphorus 1.50 L Magnesium Alkaline Phosphatase Troponin T Total Protein Albumin Free T4 Crossmatch 05/06/22 05/06/22 05/07/22 16:48 23:34 04:15 WBC RBC 2.95 L Hgb 8.4 L Hct 26.7 L RDW 16.7 H Plt Count 112 L Lymph % (Auto) [place] % (Auto) Lymph # (Auto) [place] # (Auto) Seg Neutrophils % Seg Neuts % (Manual) Lymphocytes % (Manual) Nucleated RBC % Seg Neutrophils # Seg Neutrophils # Man Lymphocytes # (Manual) PT INR APTT Heparin Anti-Xa Level ABG pH ABG pO2 ABG HCO3 ABG Base Excess ABG Hemoglobin Oxyhemoglobin Sodium Potassium Chloride Carbon Dioxide BUN Creatinine Glucose POC Glucose 121 H 145 H Phosphorus Magnesium Alkaline Phosphatase Troponin T Total Protein Albumin Free T4 Crossmatch 05/07/22 05/07/22 05/07/22 04:15 05:26 11:08 WBC RBC Hgb Hct RDW Plt Count Lymph % (Auto) [place] % (Auto) Lymph # (Auto) [place] # (Auto) Seg Neutrophils % Seg Neuts % (Manual) Lymphocytes % (Manual) Nucleated RBC % Seg Neutrophils # Seg Neutrophils # Man Lymphocytes # (Manual) PT INR APTT Heparin Anti-Xa Level ABG pH ABG pO2 ABG HCO3 ABG Base Excess ABG Hemoglobin Oxyhemoglobin Sodium 131 L Potassium 3.4 L Chloride 95.3 L Carbon Dioxide BUN 28 H Creatinine 2.5 H Glucose 140 H POC Glucose 136 H 136 H Phosphorus 1.20 L Magnesium Alkaline Phosphatase Troponin T Total Protein Albumin Free T4 Crossmatch 05/07/22 05/07/22 05/08/22 17:26 23:23 04:06 WBC RBC 2.87 L Hgb 8.2 L Hct 25.8 L RDW 16.2 H Plt Count 118 L Lymph % (Auto) [place] % (Auto) Lymph # (Auto) [place] # (Auto) Seg Neutrophils % Seg Neuts % (Manual) Lymphocytes % (Manual) Nucleated RBC % Seg Neutrophils # Seg Neutrophils # Man Lymphocytes # (Manual) PT INR APTT Heparin Anti-Xa Level ABG pH ABG pO2 ABG HCO3 ABG Base Excess ABG Hemoglobin Oxyhemoglobin Sodium Potassium Chloride Carbon Dioxide BUN Creatinine Glucose POC Glucose 135 H 123 H Phosphorus Magnesium Alkaline Phosphatase Troponin T Total Protein Albumin Free T4 Crossmatch 05/08/22 05/08/22 05/08/22 04:06 04:40 11:31 WBC RBC Hgb Hct RDW Plt Count Lymph % (Auto) [place] % (Auto) Lymph # (Auto) [place] # (Auto) Seg Neutrophils % Seg Neuts % (Manual) Lymphocytes % (Manual) Nucleated RBC % Seg Neutrophils # Seg Neutrophils # Man Lymphocytes # (Manual) PT INR APTT Heparin Anti-Xa Level ABG pH 7.482 H ABG pO2 103.9 H ABG HCO3 ABG Base Excess ABG Hemoglobin 8.1 L Oxyhemoglobin Sodium 132 L Potassium 3.3 L Chloride 93.2 L Carbon Dioxide BUN 36 H Creatinine 2.9 H Glucose 145 H POC Glucose 138 H Phosphorus 2.00 L D Magnesium Alkaline Phosphatase Troponin T Total Protein Albumin Free T4 Crossmatch 05/08/22 05/08/22 05/08/22 16:11 21:00 23:46 WBC RBC Hgb Hct RDW Plt Count Lymph % (Auto) [place] % (Auto) Lymph # (Auto) [place] # (Auto) Seg Neutrophils % Seg Neuts % (Manual) Lymphocytes % (Manual) Nucleated RBC % Seg Neutrophils # Seg Neutrophils # Man Lymphocytes # (Manual) PT INR APTT Heparin Anti-Xa Level ABG pH ABG pO2 68.8 L ABG HCO3 27.0 H ABG Base Excess ABG Hemoglobin 8.4 L Oxyhemoglobin 93.4 L Sodium Potassium Chloride Carbon Dioxide BUN Creatinine Glucose POC Glucose 134 H 142 H Phosphorus Magnesium Alkaline Phosphatase Troponin T Total Protein Albumin Free T4 Crossmatch 05/09/22 05/09/22 05/09/22 04:25 04:25 11:29 WBC RBC 2.86 L Hgb 8.0 L Hct 25.7 L RDW 16.2 H Plt Count 101 L Lymph % (Auto) [place] % (Auto) Lymph # (Auto) [place] # (Auto) Seg Neutrophils % Seg Neuts % (Manual) Lymphocytes % (Manual) Nucleated RBC % Seg Neutrophils # Seg Neutrophils # Man Lymphocytes # (Manual) PT INR APTT Heparin Anti-Xa Level ABG pH ABG pO2 ABG HCO3 ABG Base Excess ABG Hemoglobin Oxyhemoglobin Sodium 132 L Potassium 3.5 L Chloride 93.7 L Carbon Dioxide BUN 42 H Creatinine 3.0 H Glucose 145 H POC Glucose 180 H Phosphorus Magnesium Alkaline Phosphatase Troponin T Total Protein Albumin Free T4 Crossmatch 05/09/22 05/10/22 05/10/22 16:19 05:55 16:37 WBC RBC Hgb Hct RDW Plt Count Lymph % (Auto) [place] % (Auto) Lymph # (Auto) [place] # (Auto) Seg Neutrophils % Seg Neuts % (Manual) Lymphocytes % (Manual) Nucleated RBC % Seg Neutrophils # Seg Neutrophils # Man Lymphocytes # (Manual) PT INR APTT Heparin Anti-Xa Level ABG pH ABG pO2 ABG HCO3 ABG Base Excess ABG Hemoglobin Oxyhemoglobin Sodium Potassium Chloride Carbon Dioxide BUN Creatinine Glucose POC Glucose 143 H 164 H 130 H Phosphorus Magnesium Alkaline Phosphatase Troponin T Total Protein Albumin Free T4 Crossmatch 05/11/22 05/11/22 05/11/22 00:56 05:13 18:11 WBC RBC Hgb Hct RDW Plt Count Lymph % (Auto) [place] % (Auto) Lymph # (Auto) [place] # (Auto) Seg Neutrophils % Seg Neuts % (Manual) Lymphocytes % (Manual) Nucleated RBC % Seg Neutrophils # Seg Neutrophils # Man Lymphocytes # (Manual) PT INR APTT Heparin Anti-Xa Level ABG pH ABG pO2 ABG HCO3 ABG Base Excess ABG Hemoglobin Oxyhemoglobin Sodium Potassium Chloride Carbon Dioxide BUN Creatinine Glucose POC Glucose 179 H 139 H 166 H Phosphorus Magnesium Alkaline Phosphatase Troponin T Total Protein Albumin Free T4 Crossmatch 05/11/22 05/12/22 05/12/22 23:53 04:11 04:11 WBC 18.0 H RBC 2.56 L Hgb 7.2 L Hct 23.2 L RDW 16.4 H Plt Count Lymph % (Auto) 7.8 L [place] % (Auto) 14.2 H Lymph # (Auto) [place] # (Auto) 2.5 H Seg Neutrophils % 77.1 H Seg Neuts % (Manual) Lymphocytes % (Manual) Nucleated RBC % Seg Neutrophils # 13.9 H Seg Neutrophils # Man Lymphocytes # (Manual) PT 15.4 H INR APTT Heparin Anti-Xa Level ABG pH ABG pO2 ABG HCO3 ABG Base Excess ABG Hemoglobin Oxyhemoglobin Sodium Potassium Chloride Carbon Dioxide BUN Creatinine Glucose POC Glucose 115 H Phosphorus Magnesium Alkaline Phosphatase Troponin T Total Protein Albumin Free T4 Crossmatch 05/12/22 05/12/22 05/12/22 05:03 06:00 06:07 WBC RBC Hgb Hct RDW Plt Count Lymph % (Auto) [place] % (Auto) Lymph # (Auto) [place] # (Auto) Seg Neutrophils % Seg Neuts % (Manual) Lymphocytes % (Manual) Nucleated RBC % Seg Neutrophils # Seg Neutrophils # Man Lymphocytes # (Manual) PT INR APTT Heparin Anti-Xa Level ABG pH ABG pO2 ABG HCO3 ABG Base Excess ABG Hemoglobin Oxyhemoglobin Sodium 133 L Potassium Chloride 94.1 L Carbon Dioxide BUN 29 H Creatinine 2.4 H Glucose 145 H POC Glucose 122 H Phosphorus Magnesium Alkaline Phosphatase 332 H Troponin T Total Protein 4.8 L Albumin 2.0 L Free T4 Crossmatch See Detail 05/12/22 05/12/22 05/12/22 11:36 16:44 18:00 WBC RBC Hgb 8.7 L Hct 27.1 L RDW Plt Count Lymph % (Auto) [place] % (Auto) Lymph # (Auto) [place] # (Auto) Seg Neutrophils % Seg Neuts % (Manual) Lymphocytes % (Manual) Nucleated RBC % Seg Neutrophils # Seg Neutrophils # Man Lymphocytes # (Manual) PT INR APTT Heparin Anti-Xa Level ABG pH ABG pO2 ABG HCO3 ABG Base Excess ABG Hemoglobin Oxyhemoglobin Sodium Potassium Chloride Carbon Dioxide BUN Creatinine Glucose POC Glucose 143 H 121 H Phosphorus Magnesium Alkaline Phosphatase Troponin T Total Protein Albumin Free T4 Crossmatch 05/12/22 05/13/22 05/13/22 23:06 04:00 04:00 WBC 16.6 H RBC 3.04 L Hgb 8.8 L Hct 26.9 L RDW 15.3 H Plt Count Lymph % (Auto) [place] % (Auto) Lymph # (Auto) [place] # (Auto) Seg Neutrophils % Seg Neuts % (Manual) Lymphocytes % (Manual) Nucleated RBC % Seg Neutrophils # Seg Neutrophils # Man Lymphocytes # (Manual) PT INR APTT Heparin Anti-Xa Level ABG pH ABG pO2 ABG HCO3 ABG Base Excess ABG Hemoglobin Oxyhemoglobin Sodium 131 L Potassium Chloride 93.2 L Carbon Dioxide BUN 38 H Creatinine 2.7 H Glucose 145 H POC Glucose 129 H Phosphorus Magnesium Alkaline Phosphatase Troponin T Total Protein Albumin Free T4 Crossmatch 05/13/22 05:00 WBC RBC Hgb Hct RDW Plt Count Lymph % (Auto) [place] % (Auto) Lymph # (Auto) [place] # (Auto) Seg Neutrophils % Seg Neuts % (Manual) Lymphocytes % (Manual) Nucleated RBC % Seg Neutrophils # Seg Neutrophils # Man Lymphocytes # (Manual) PT INR APTT Heparin Anti-Xa Level ABG pH ABG pO2 ABG HCO3 ABG Base Excess ABG Hemoglobin Oxyhemoglobin Sodium Potassium Chloride Carbon Dioxide BUN Creatinine Glucose POC Glucose 136 H Phosphorus Magnesium Alkaline Phosphatase Troponin T Total Protein Albumin Free T4 Crossmatch Chest x-ray: report reviewed, image reviewed CT scan - chest: report reviewed, image reviewed Additional Studies: CHEST 1 VIEW 05/10/22 INDICATION / CLINICAL INFORMATION: follow up respiratory failure. COMPARISON: Chest x-ray 05/09/2022 FINDINGS: SUPPORT DEVICES: Endotracheal tube satisfactory position 5 cm above tena. Underpenetrated study. HEART / MEDIASTINUM: Stable interval appearance of the cardiomediastinal silhouette. LUNGS / PLEURA: Bilateral lung opacities demonstrate no significant interval change. Nodular density left mid chest unchanged. BONES: No significant osseous abnormality. ADDITIONAL FINDINGS: No significant additional findings. IMPRESSION: 1. No adverse interval change in the chest given the difference in technique. Nodular density possibly calcified left midlung is stable. Satisfactory positioning of endotracheal tube. CTA CHEST WITH CONTRAST 05/09/22 INDICATION / CLINICAL INFORMATION: Hypoxemic Respiratory Failure; MRSA Pneumonia. TECHNIQUE: Axial CT images were obtained through the chest after injection of 100 mL Omnipaque 350 IV contrast. 3 plane MIP and/or 3D reconstructions were produced. All CT scans at this location are performed using CT dose reduction for ALARA by means of automated exposure control. COMPARISON: CT dated 01/26/21 FINDINGS: PULMONARY EMBOLUS: None. THORACIC AORTA: No significant abnormality. HEART: No significant abnormality. CORONARY ARTERY CALCIFICATION: Absent -- None. MEDIASTINUM / PAT: No significant abnormality. PLEURA: Large right and moderate-sized left pleural effusions. No pneumothorax. LUNGS: Passive atelectasis of the lower lungs. Patchy groundglass opacities in the upper lobes. Endotracheal tube in expected position. ADDITIONAL FINDINGS: Moderate body wall edema. Patent right upper arm AV graft. UPPER ABDOMEN: No acute findings. SKELETAL STRUCTURES: No significant osseous abnormality. IMPRESSION: 1. No CT evidence for pulmonary embolism. 2. Large right and moderate-sized left pleural effusions with moderate body wall edema. 3. Groundglass pulmonary opacities in the upper lobes likely representing atypical pneumonia. ULTRASOUND-GUIDED THORACENTESIS 05/09/22 HISTORY: large right pleural effusion. COMPARISON: CTA chest performed earlier today PROCEDURE: The risks (including but not limited to bleeding, infection, and pneumothorax) and benefits were explained to the patient and informed consent was obtained. A time out procedure was performed. Ultrasound was used to evaluate the right pleural effusion and locate the optimal site for needle entry. Once the skin was marked, the procedure site was prepped and draped in the usual sterile fashion and lidocaine was used for local anesthesia. A 5-Kyr[place] thoracentesis catheter was placed. The patient was monitored closely throughout the procedure, and a total of 1000 mL of clear yellow fluid was aspirated. Samples were sent to the lab for further evaluation per the primary clinicians orders. The patient tolerated the procedure well with no complications. A post- procedure chest x-ray was immediately ordered. IMPRESSION: Successful ultrasound-guided right thoracentesis. Allied health notes reviewed: RT
[2022-05-13] MEDS: risperiDONE 1 MG TAB FEEDTUBE SCH ×2 (09:34→21:30)
[2022-05-13] MEDS: POLYETHYLENE GLYCOL 3350 17 GM POWDER FEEDTUBE SCH (09:34)
[2022-05-13] MEDS: SENNOSIDES 8.6 MG TAB FEEDTUBE SCH ×2 (09:34→21:31)
[2022-05-13] MEDS: MIDODRINE 10 MG TAB FEEDTUBE SCH ×3 (09:34→21:30)
[2022-05-13] MEDS: VALPROIC ACID 250 MG/5 ML ORAL LIQD FEEDTUBE SCH ×2 (09:34→21:30)
[2022-05-13] MEDS: MEMANTINE 5 MG TAB FEEDTUBE SCH ×2 (09:34→21:34)
[2022-05-13] MEDS: LANSOPRAZOLE 30 MG SOLUTAB FEEDTUBE SCH (09:34)
[2022-05-13] MEDS: DOCUSATE SODIUM 100 MG/10 ML ORAL LIQD FEEDTUBE SCH ×2 (09:34→21:31)
--- NOTE | 2022-05-13 09:46 | Progress Note ---
Assessment and Plan Assessment and plan: This is a 66-year-old female with HTN, GERD, seizure disorder, vascular dementia, ESRD on HD, chronic hypertension, bipolar, schizophrenia, anxiety admitted with acute hypoxic respiratory failure, acute on chronic hypotension, acute on chronic metabolic encephalopathy and SVT Neuro: h/o vascular dementia, schizophrenia, bipolar, anxiety disorder -Continue Seroquel -As needed Ativan -Reorientation as needed -Maintain sleep-wake cycle -As needed analgesia -Continue home memantine, respiradol, valproic acid -CT head showed no acute intracranial abnormalities, no significant interval changes -Psych consulted, appreciate recommendations Cardiac: SVT s/p cardioversion, chronic hypotension, NSTEMI type II -Cardiology consulted, appreciate recommendations -Blood pressure monitoring per protocol -vasopressor support with Levophed -Cortisol 24.4 -s/p Fludrocortisone for 4 doses -Midodrine 20mg TID -Echo 01/31/2022-EF 60 to 65%. Doppler flow pattern suggests impaired LV relaxation. Right ventricle systolic function is normal trace aortic regurgit ation. Trace mitral regurgitation. -Lipitor, Plavix Respiratory: Acute hypoxic respiratory failure -CCM consulted, appreciate recommendations -04/23 Chest ultrasound showed bilateral pleural effusions, right greater than left -Intubated 05/03 with 7.5 oett at 22 at the lips -05/03 bronch at bedside -05/05 therapeutic bronch at the bedside -ABG abg and CXR noted -AM vent settings: AC Rate 14, TV 450, Peep 6, FiO2 30% -See RT notes for titration -Pulmonary hygiene -SPO2 monitor per protocol -CTA chest with contrast shows large right and moderate-sized left pleural effusions with moderate body wall edema, groundglass pulmonary opacities in the upper lobes likely representing atypical pneumonia, no CT evidence of pulmonary embolism. -Chest US showed right pleural and she received a bedside thoracentesis 05/09 GI: Moderate protein calorie malnutrition, dysphagia s/p PEG -GI consulted -s/p peg 05/04 -24 hours + 744 mL -PPI -TF -BR: Senokot : ESRD on HD -Nephrology consulted, appreciate recommendations -HD per nephrology (TThSat) -Monitor intake and output -Renally dose medications -Avoid nephrotoxic medications -Epogen 3 times daily -Trend BMP ID: Septic Shock (unable to determine status), MRSA PNA -ID consulted, appreciate recommendations -f/u blood culture -04/19 blood cultures x2 NGTD, bronch wash with MRSA -ABX therapy with vanco and cefepime -Monitor WBC and temperature curve Endo: NAD -Avoid hypoglycemia Heme: Anemia of chronic disease, RIJ thrombus (chronic), leukocytosis, thrombycytopenia (resolved) -Vascular surgery consulted, appreciate recommendations -no need for heparin gtt per vascular surgery -HIT pending -Trend CBC -Transfuse hemoglobin less than 7 -s/p 4 unit PRBC -Epogen 3 times daily -SCDs to BLE while in bed The high probability of a clinically significant, sudden or life threatening deterioration of the [multiple] system(s) required my full and direct attention, intervention and personal management. The aggregate critical care time was [60] minutes. This time is in addition to time spent performing reported procedures but includes the following: [x] Data Review and interpretation [x] Patient assessment and monitoring of vital signs [x] Documentation [x] Medication orders and management Disposition Plan: icu Total Time Spent with Patient (Minutes): 60 History Interval history: This is a 66-year-old female with HTN, GERD, seizure disorder, vascular dementia, ESRD on HD (TTS), OA, chronic hypotension, bipolar, schizophrenia, anxiety examined mobility with a resident of [facility] present to the emergency department on 04/19 with altered mental status and for being combative causing her to miss several days of hemodialysis. On presentation patient was found to be more hypertensive than usual and on room air with oxygen saturations in the 90s and she subsequently went into SVT into the 150s requiring cardioversion under conscious sedation. Patient was admitted to the hospital service with acute hypoxic respiratory failure, acute on chronic hypotension, acute on chronic metabolic encephalopathy, SVT, hyperkalemia, NSTEMI type II to the ICU with consults to CCM, nephrology cardiology and psych. Hospital Course to Date: 04/20: Patient went into Afib with RVR overnight, now on amiodarone gtt per cardio. Patient remains in AFib with RVR this am, HR in the 120-140s. BP marginal on Levophed gtt, currently not a candidate for BB. Midodrine increased to 15mg TID. 2D Echo pending. On heparin gtt per protocol. No HD today per nephro due to hypotension and tachycardia. 04/21: Converted to SR this am, remains on Amiodarone and heparin. Awaiting cardio final recommendations. Still on Levophed gtt for low BP, given patient history of chronic hypotension, Wean pressor for MAP goal of 60s. Patient is pocketing foods, currently NPO, awaiting speech eval and treat. 04/22: Patient passed speech swallow eval yesterday, however, patient is refusing PO intakes including meds. Will insert DHT for nutrition and meds administration. Patient remains in SR this am, amiodaron gtt transitioned to PO per cardio. Patient remains on heparin and Levophed gtt. Patient has not received PO midrodrine for 24hrs, resume meds once DHT is inserted. Keep femoral CVC for another 24hrs, anticipating will be able to wean off pressor once patient receive midodrine. Will reassess in the morning. No HD overnight, unable to cannulate AVF, plan to attempt again today per Nephro. Possible IR/Vascular surgery consult if unsuccessful again today. 04/23: Mentation a lot better this am. DHT was inserted, meds resumed and TF initiated. Levophed gtt increased overnight due to worsen hypotension, suspected it is due to sedative agents. Seroquel decreased to 200mg BID and scheduled ativan switched to PRN. Continue midodrine TID and wean off levophed gtt for MAP goal of 60. Patient tolerated HD yesterday, continue iHD per Nephrology. CCM recommendations noted, Chest US ordered for pleural effusion. 04/24: RN instructed to wean Levophed off, goal MAP of 60. Heparin drip stopped due to decreasing hemoglobin. 04/25: ST had cleared the patient for pured diet which will be started today, hemodialysis planned for today, patient was to be anemic and will receive 1 unit PRBC with HD. We will increase midodrine to 20 mg 3 times daily if patient becomes hypotensive during dialysis. Per CCM. Decrease in seroqoul but will increase if needed 04/26: Patient agreeable to PEG, GI consulted for placement. Femoral line removed 04/27: No acute events reported overnight, patient has been cardiac cleared for PEG tube placement. Possible PEG in the a.m. This afternoon attempted to place IJ CVL which was unsuccessful and Dr. Mcguire ultimately placed femoral CVL for the initiation of Levophed. HD scheduled for today. 04/28: Patient initially started on Levophed yesterday and she received a femoral CVL. 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 Vascular surgery was consulted. Patient also noted to be anemic and received 1 unit PRBC today. 04/29: Possible hemodialysis today, patient was able to be weaned off of Levophed today. Hemoglobin responded well to 1 unit PRBC. Awaiting trach/PEG placement. Patient will not need to be started on heparin drip per vascular surgery. No acute events reported overnight. 04/30: HD yesterday without removal of fluids, patient needs NT suctioning. Updated son today. 05/01: Patient with increase mucous production and is unable to fully clear her airway, Rhonchi auscultated throughout her lungs this am. SPO2 at 90 to 94% on 3L NC. D/W CCM, patient is high risk for aspiration will placed patient on heated HF at 40L for now instead of Bipap. Nasal bleeding also noted, mostly due to NT suctioning. Refrain from NT suctioning for now due to bleeding, only oral suctioning. PO seroquel held this amP atient is AAO, appropriate, and following commands. Levophed gtt weaned off, patient remains hemodynamically stable. Will discuss Nephro for possible fluid removal tonight or early tomorrow. Very low threshold for intubation. Patient's condition and plan of care, including possible intubation, thoroughly discussed with patient's son-Raymundo Randolph at . Patient's son verbalized understanding of the info provided and agreed with intubation if necessary. 05/02: Remains on HHFL at 40% and 40L, mentation is unchanged. HD at the bedside, plan for possible UF with fluid removal today. Continue O2 supplementation and wean as tolerated, for SPO2 above 92%. Repeat CXR in the am. Patient vital signs remains stable, still off pressors. Plan for possible PEG-tube placement by GI tomorrow, NPO after MN. Possible fistulogram for RIJ thrombus on or sunday per Vascular Surgery. 05/03: Complete white-out of right side from this am CXR, probable mucus plug. S/p intubation and bronch at the bedside by [facility]. Patient remains sedated and required short duration of Levophed gtt during the procedure. Pressor was wean off, VSS. Plan for CPT and mucomyst Q12hrs. Repeat CXR in the am. PEG-Tube placement postpone for possibly tomorrow if patient remains stable. Possible fistulogram for RIJ thrombus on or Sunday per Vascular Surgery. 05/04: Remains on the vent, easily arousable. High fevers overnight with spike in leukocytosis, now on 2 pressors. CCM d/w ID, recommendations to repeat blood cultures and empiric IV abx- Cefepine and Vanco. low H&H this am, no s/s of any active bleeding, 1units of PRBCs during iHD today. S/p PEG-tube placement at this bedside this am by GI, no complications noted. Resume TF once clear by GI. 05/05: Remains on low vent setting. This am CXR with increase opacities on the right side again today, s/p therapeutic bronch at the bedside today by CCM. Repeat CXR in the am. Remains with low grade fevers and on 2 pressors. Bronchial wash with Staph A. and blood cultures pending. Continue current IV Abx per ID. 05/06: Stable on the vent this am. Only on low dose pressors, MAP above 65. CXR with some improvement, peep dropped to 8 per CCM. Continue CPT and Mucomyst TID. If patient remains stable overnight, possible PSV trial in the am. Fevers and leukocytosis improved. Continue current IV Abx per ID. Continue iHD per Nephro 05/07: Remains stable on the vent, afebrile and off pressors this am VSS. This am CXR reviewed, increased opacities on the right side. Patient remains on low vent settings. Further management per CCM, continue CPT and Mucomyst TID. Bronch wash with MRSA, blood cultures pending. Continue current IV Abx per ID. 05/08: We will replete potassium, CCM would like a CTA chest but evaluate atelectasis/consolidation/effusions. LTAC evaluation 05/09: HD today, CTA chest completed. CPAP yesterday but rested on AC overnight. 05/10: Patient discharge will be delayed till tomorrow due to bed unavailability at LTAC facility, no acute distress overnight. Patient placed on PSV but failed. 05/11: Transferred to LTAC has been delayed. Patient received hemodialysis today. Patient CPAP trial and she fell today. No acute events reported overnight. 05/12: Overnight patient was restarted on Levophed, patient was scheduled for tracheostomy and noted drop in hemoglobin therefore patient was ordered to be transfused for 1 unit. Patient did receive dialysis yesterday. Due to the use of vasopressors surgery was canceled. Patient did have 1 spike in temperature to 101 and given increase in WBC patient was started on IV cefepime for 3 days to complete her 8-day therapy as recommended by infectious disease. 05/13: Patient remains on Levophed. He received PRBC yesterday. Blood pressure continues to be labile. RN to wean as tolerated. CPAP trial today Hospitalist Physical - Constitutional Vitals: Temp Pulse Resp BP Pulse Ox 98.5 F 100 H 14 138/69 99 05/13/22 07:59 05/13/22 09:25 05/13/22 09:25 05/13/22 09:25 05/13/22 09:25 General appearance: Present: no acute distress, other (intubated) - EENT Eyes: Present: PERRL ENT: poor dentition - Neck Neck: Present: normal ROM - Respiratory Respiratory effort: normal Respiratory: bilateral: diminished, rhonchi - Cardiovascular Rhythm: regular Heart Sounds: Present: S1 & S2. Absent: systolic murmur, diastolic murmur - Extremities Extremities: no ischemia, pulses intact Extremity abnormal: edema, pulses diminished - Abdominal General gastrointestinal: soft, non-tender, non-distended, normal bowel sounds - Integumentary Integumentary: Present: warm, dry - Psychiatric Psychiatric: cooperative - Neurologic Neurologic: CNII-XII intact, moves all extremities - Allied Health Allied health notes reviewed: nursing, RT HEART Score - HEART Score Troponin: Troponin T 0.415 ng/mL (0.00-0.029) H* 04/19/22 04:53 Results - Labs CBC & Chem 7: 05/13/22 04:00 05/13/22 04:00 Labs: Laboratory Last Values WBC 16.6 K/mm3 (4.5-11.0) H 05/13/22 04:00 RBC 3.04 M/mm3 (3.65-5.03) L 05/13/22 04:00 Hgb 8.8 gm/dl (10.1-14.3) L 05/13/22 04:00 Hct 26.9 % (30.3-42.9) L 05/13/22 04:00 MCV 88 fl (79-97) 05/13/22 04:00 MCH 29 pg (28-32) 05/13/22 04:00 MCHC 33 % (30-34) 05/13/22 04:00 RDW 15.3 % (13.2-15.2) H 05/13/22 04:00 Plt Count 295 K/mm3 (140-440) 05/13/22 04:00 Lymph % (Auto) 7.8 % (13.4-35.0) L 05/12/22 04:11 [place] % (Auto) 14.2 % (0.0-7.3) H 05/12/22 04:11 Eos % (Auto) 0.5 % (0.0-4.3) 05/12/22 04:11 Baso % (Auto) 0.4 % (0.0-1.8) 05/12/22 04:11 Lymph # (Auto) 1.4 K/mm3 (1.2-5.4) 05/12/22 04:11 [place] # (Auto) 2.5 K/mm3 (0.0-0.8) H 05/12/22 04:11 Eos # (Auto) 0.1 K/mm3 (0.0-0.4) 05/12/22 04:11 Baso # (Auto) 0.1 K/mm3 (0.0-0.1) 05/12/22 04:11 Add Manual Diff Complete 05/05/22 04:20 Total Counted 100 05/05/22 04:20 Seg Neutrophils % 77.1 % (40.0-70.0) H 05/12/22 04:11 Seg Neuts % (Manual) 86.0 % (40.0-70.0) H 05/05/22 04:20 Band Neutrophils % 3.0 % 05/05/22 04:20 Lymphocytes % (Manual) 4.0 % (13.4-35.0) L 05/05/22 04:20 Reactive Lymphs % (Man) 0 % 05/05/22 04:20 Monocytes % (Manual) 6.0 % (0.0-7.3) 05/05/22 04:20 Eosinophils % (Manual) 1.0 % (0.0-4.3) 05/05/22 04:20 Basophils % (Manual) 0 % (0.0-1.8) 05/05/22 04:20 Metamyelocytes % 0 % 05/05/22 04:20 Myelocytes % 0 % 05/05/22 04:20 Promyelocytes % 0 % 05/05/22 04:20 Blast Cells % 0 % 05/05/22 04:20 Nucleated RBC % 1.0 % (0.0-0.9) H 05/05/22 04:20 Seg Neutrophils # 13.9 K/mm3 (1.8-7.7) H 05/12/22 04:11 Seg Neutrophils # Man 11.0 K/mm3 (1.8-7.7) H 05/05/22 04:20 Band Neutrophils # 0.4 K/mm3 05/05/22 04:20 Lymphocytes # (Manual) 0.5 K/mm3 (1.2-5.4) L 05/05/22 04:20 Abs React Lymphs (Man) 0.0 K/mm3 05/05/22 04:20 Monocytes # (Manual) 0.8 K/mm3 (0.0-0.8) 05/05/22 04:20 Eosinophils # (Manual) 0.1 K/mm3 (0.0-0.4) 05/05/22 04:20 Basophils # (Manual) 0.0 K/mm3 (0.0-0.1) 05/05/22 04:20 Metamyelocytes # 0.0 K/mm3 05/05/22 04:20 Myelocytes # 0.0 K/mm3 05/05/22 04:20 Promyelocytes # 0.0 K/mm3 05/05/22 04:20 Blast Cells # 0.0 K/mm3 05/05/22 04:20 WBC Morphology Not Reportable 05/05/22 04:20 Hypersegmented Neuts Not Reportable 05/05/22 04:20 Hyposegmented Neuts Not Reportable 05/05/22 04:20 Hypogranular Neuts Not Reportable 05/05/22 04:20 Smudge Cells Not Reportable 05/05/22 04:20 Toxic Granulation Not Reportable 05/05/22 04:20 Toxic Vacuolation Not Reportable 05/05/22 04:20 Dohle Bodies Not Reportable 05/05/22 04:20 Pelger-Huet Anomaly Not Reportable 05/05/22 04:20 Ubaldo Rods Not Reportable 05/05/22 04:20 Platelet Estimate Consistent w auto 05/05/22 04:20 Clumped Platelets Not Reportable 05/05/22 04:20 Plt Clumps, EDTA Not Reportable 05/05/22 04:20 Large Platelets Not Reportable 05/05/22 04:20 Giant Platelets Not Reportable 05/05/22 04:20 Platelet Satelliting Not Reportable 05/05/22 04:20 Plt Morphology Comment Not Reportable 05/05/22 04:20 RBC Morphology Not Reportable 05/05/22 04:20 Dimorphic RBCs Not Reportable 05/05/22 04:20 Polychromasia Not Reportable 05/05/22 04:20 Hypochromasia 2+ 05/05/22 04:20 Poikilocytosis Not Reportable 05/05/22 04:20 Anisocytosis 1+ 05/05/22 04:20 Microcytosis Not Reportable 05/05/22 04:20 Macrocytosis Not Reportable 05/05/22 04:20 Spherocytes Not Reportable 05/05/22 04:20 Pappenheimer Bodies Not Reportable 05/05/22 04:20 Sickle Cells Not Reportable 05/05/22 04:20 Target Cells Not Reportable 05/05/22 04:20 Tear Drop Cells Not Reportable 05/05/22 04:20 Ovalocytes Not Reportable 05/05/22 04:20 Helmet Cells Not Reportable 05/05/22 04:20 [place] Bodies Not Reportable 05/05/22 04:20 [place] Rings Not Reportable 05/05/22 04:20 Stacey Cells Not Reportable 05/05/22 04:20 Bite Cells Not Reportable 05/05/22 04:20 Crenated Cell Not Reportable 05/05/22 04:20 Elliptocytes Not Reportable 05/05/22 04:20 Acanthocytes (Spur) Not Reportable 05/05/22 04:20 Rouleaux Not Reportable 05/05/22 04:20 Hemoglobin C Crystals Not Reportable 05/05/22 04:20 Schistocytes Not Reportable 05/05/22 04:20 Malaria parasites Not Reportable 05/05/22 04:20 [place]rey Bodies Not Reportable 05/05/22 04:20 Hem Pathologist Commnt No 05/05/22 04:20 PT 15.4 Sec. (12.2-14.9) H 05/12/22 04:11 INR 1.09 (0.87-1.13) 05/12/22 04:11 APTT 39.4 Sec. (24.2-36.6) H 05/03/22 04:24 Heparin Anti-Xa Level < 0.10 U.I./ml (0.3-0.7) L 04/24/22 10:20 ABG pH 7.421 pH Units (7.350-7.450) 05/08/22 21:00 ABG pCO2 42.4 mm Hg 05/08/22 21:00 ABG pO2 68.8 mm Hg (80.0-90.0) L 05/08/22 21:00 ABG HCO3 27.0 mmol/L (20.0-26.0) H 05/08/22 21:00 ABG O2 Saturation 95.7 % (95.0-99.0) 05/08/22 21:00 ABG O2 Content 11.1 (0.0-44) 05/08/22 21:00 ABG Base Excess 2.3 mmol/L (-2.0-3.0) 05/08/22 21:00 ABG Hemoglobin 8.4 gm/dl (12.0-16.0) L 05/08/22 21:00 ABG Carboxyhemoglobin 1.8 % (0.0-5.0) 05/08/22 21:00 ABG Methemoglobin 0.5 % (0.0-1.5) 05/08/22 21:00 Oxyhemoglobin 93.4 % (95.0-99.0) L 05/08/22 21:00 FiO2 30 % 05/08/22 21:00 Sodium 131 mmol/L (137-145) L 05/13/22 04:00 Potassium 4.8 mmol/L (3.6-5.0) 05/13/22 04:00 Chloride 93.2 mmol/L (98-107) L 05/13/22 04:00 Carbon Dioxide 26 mmol/L (22-30) 05/13/22 04:00 Anion Gap 17 mmol/L 05/13/22 04:00 BUN 38 mg/dL (7-17) H 05/13/22 04:00 Creatinine 2.7 mg/dL (0.6-1.2) H 05/13/22 04:00 Estimated GFR 18 ml/min 05/13/22 04:00 BUN/Creatinine Ratio 14 % 05/13/22 04:00 Glucose 145 mg/dL (65-100) H 05/13/22 04:00 POC Glucose 136 mg/dL (70-105) H 05/13/22 05:00 Lactic Acid 1.60 mmol/L (0.7-2.0) 04/19/22 07:14 Calcium 8.8 mg/dL (8.4-10.2) 05/13/22 04:00 Phosphorus 3.00 mg/dL (2.5-4.5) D 05/09/22 04:25 Magnesium 1.80 mg/dL (1.7-2.3) 05/09/22 04:25 Total Bilirubin 0.30 mg/dL (0.1-1.2) 05/12/22 06:00 AST 24 units/L (5-40) 05/12/22 06:00 ALT 7 units/L (7-56) 05/12/22 06:00 Alkaline Phosphatase 332 units/L (35-129) H 05/12/22 06:00 Ammonia 25.0 umol/L (25-60) 04/19/22 04:53 Lactate Dehydrogenase 142 units/L (91-180) 05/09/22 04:25 Troponin T 0.415 ng/mL (0.00-0.029) H* 04/19/22 04:53 Total Protein 4.8 g/dL (6.3-8.2) L 05/12/22 06:00 Albumin 2.0 g/dL (3.9-5) L 05/12/22 06:00 Albumin/Globulin Ratio 0.7 % 05/12/22 06:00 Procalcitonin 42.42 ng/mL (<0.15) 05/05/22 04:20 TSH 1.700 mlU/mL (0.270-4.200) 04/19/22 04:53 Free T4 0.28 ng/dL (0.76-1.46) L 04/19/22 04:53 Total Cortisol 24.4 mcg/dL () 04/27/22 04:45 Fluid Type Pleural 05/09/22 Unknown Fluid Color Yellow 05/09/22 Unknown Fluid Appearance Clear 05/09/22 Unknown Fluid WBC 21 /mm3 05/09/22 Unknown Fluid RBC 12 /mm3 05/09/22 Unknown Fluid Seg Neutrophils 60.0 % 05/09/22 Unknown Fluid Lymphocytes 11.0 % 05/09/22 Unknown Fluid Monocytes 29.0 % 05/09/22 Unknown Random Vancomycin 20.0 ug/mL (0-40.0) 05/11/22 03:56 Coronavirus (PCR) Negative (Negative) 05/03/22 11:30 Hepatitis A IgM Ab Non-reactive (NonReactive) 04/19/22 04:53 Hep Bs Antigen Non-reactive (Negative) 04/19/22 04:53 Hep B Core IgM Ab Non-reactive (NonReactive) 04/19/22 04:53 Hepatitis C Antibody Non-reactive (NonReactive) 04/19/22 04:53 Blood Type A POSITIVE 05/12/22 06:07 Antibody Screen Negative 05/12/22 06:07 Crossmatch See Detail 05/12/22 06:07 Microbiology: Microbiology 05/09/22 Unknown Other (Please Specify:) - Pleura Body Fluid Culture - Preliminary Cleary/IV: Voiding Method Diaper Active Medications - Current Medications Current Medications: Generic Name Dose Route Start Last Admin Trade Name Freq PRN Reason Stop Dose Admin Acetaminophen 650 mg 04/22/22 20:12 05/12/22 23:29 Acetaminophen 325 Mg/10.15 Ml Oral Liqd Unit Dose PO 650 mg Q6H PRN Administration Pain MILD(1-3)/Fever >100.5/DRAKE Albumin Human 25 gm 04/21/22 13:00 04/22/22 16:31 Albumin Human 25% (25 Gm/100 Ml) Inj IV 25 gm BIANCA PRN Administration Hypotension Albuterol 2.5 mg 04/21/22 08:30 04/24/22 16:51 Albuterol 2.5 Mg/3 Ml Nebu IH 2.5 mg Q3HRT PRN Administration Shortness Of Breath Albuterol/Ipratropium 1 ampul 04/21/22 14:00 05/13/22 07:49 Ipratropium/Albuterol Sulfate 3 Ml Ampul.Neb IH 1 ampul TIDRT CONNOR Administration Docusate Sodium 100 mg 05/01/22 22:00 05/13/22 09:34 Docusate Sodium 100 Mg/10 Ml Oral Liqd FEEDTUBE 100 mg BID CONNOR Administration Epoetin Lb-epbx 20,000 unit 04/23/22 12:00 05/09/22 14:58 Epoetin Lb-Epbx 20,000 Unit/1 Ml Vial IV 20,000 unit BIANCA PRN Administration HEMODIALYSIS Fentanyl 50 mcg 05/03/22 10:29 05/05/22 12:23 Fentanyl 100 Mcg/2 Ml Inj IV 25 mcg Q10MIN PRN Administration ANALGESIA Sodium Chloride 100 mls @ 999 mls/hr 04/22/22 09:12 Nacl 0.9% IV BIANCA PRN Hypotension Fentanyl Citrate 2,000 mcg in 100 mls @ 2.722 mls/hr 05/03/22 11:00 Fentanyl Drip Premix IV TITR CONNOR Protocol 1 MCG/KG/HR Vasopressin 20 unit/ Sodium 101 mls @ 9.09 mls/hr 05/04/22 00:30 05/06/22 11:21 Chloride IV 0 units/min TITR CONNOR 0 mls/hr Infusion 0.03 UNITS/MIN Vancomycin HCl 750 mg/ Sodium 265 mls @ 166.667 mls/hr 05/09/22 22:00 05/12/22 00:34 Chloride IV 05/13/22 21:59 166.667 mls/hr [facility] CONNOR Administration NORepinephrine/NS 8 MG-250 ML 8 mg in 250 mls @ 3.75 mls/hr 05/11/22 21:23 05/13/22 09:33 Norepinephrine/Ns 8 Mg-250 Ml (Double Conc) IV 4 mcg/min TITRATE CONNOR 7.5 mls/hr Titration Protocol 2 MCG/MIN Cefepime HCl 1 gm in 100 mls @ 200 mls/hr 05/12/22 18:00 05/12/22 17:34 Cefepime/Ns 1 Gm/100 Ml IV 05/14/22 18:29 200 mls/hr Q24H CONNOR Administration Protocol Lansoprazole 30 mg 04/23/22 10:00 05/13/22 09:34 Lansoprazole 30 Mg Solutab FEEDTUBE 30 mg QDAY CONNOR Administration Lorazepam 0.5 mg 04/25/22 09:59 Lorazepam 0.5 Mg Tab FEEDTUBE QDAY PRN Anxiety Memantine 5 mg 04/25/22 10:00 05/13/22 09:34 Memantine 5 Mg Tab FEEDTUBE 5 mg BID CONNOR Administration Metoclopramide HCl 5 mg 04/19/22 09:55 Metoclopramide 10 Mg/2 Ml Inj IV Q6H PRN Nausea And Vomiting Midodrine 20 mg 04/26/22 14:00 05/13/22 09:34 Midodrine 10 Mg Tab FEEDTUBE 20 mg TID CONNOR Administration Naloxone HCl 0.1 mg 04/19/22 09:55 Naloxone 0.4 Mg/1 Ml Inj IV Q2MIN PRN Res Rate </= 8 or 02 SAT < 92% Polyethylene Glycol 17 gm 05/03/22 10:00 05/13/22 09:34 Polyethylene Glycol 3350 17 Gm Powder FEEDTUBE 17 gm QDAY CONNOR Administration Risperidone 0.5 mg 04/25/22 11:00 05/13/22 09:34 Risperidone 1 Mg Tab FEEDTUBE 0.5 mg BID CONNOR Administration Scopolamine 1 each 05/02/22 10:00 05/11/22 09:13 Scopolamine Transdermal Patch 72 Hr TD 1 each Q3D CONNOR Administration Senna 17.2 mg 04/23/22 10:00 05/13/22 09:34 Sennosides 8.6 Mg Tab FEEDTUBE 17.2 mg BID CONNOR Administration Sodium Chloride 10 ml 04/19/22 12:00 05/13/22 09:35 Sodium Chloride 0.9% 10 Ml Flush Syringe IV 10 ml BID CONNOR Administration Sodium Chloride 10 ml 04/19/22 11:19 Sodium Chloride 0.9% 10 Ml Flush Syringe IV PRN PRN LINE FLUSH Valproic Acid 750 mg 04/22/22 22:00 05/13/22 09:34 Valproic Acid 250 Mg/5 Ml Oral Liqd FEEDTUBE 750 mg BID CONNOR Administration Nutrition/Malnutrition Assess - Dietary Evaluation Nutrition/Malnutrition Findings: Nutrition Notes Start: 04/19/22 17:39 Freq: Status: Active Protocol: Document 05/12/22 14:43 SHILA (Rec: 05/12/22 14:47 SHILA [id number]) Nutrition Notes Initial or Follow up Reassessment Current Diagnosis CKD (stage V CKD),Sepsis, Respiratory Failure Other Pertinent Diagnosis Neurogenic dysphagia, metabolic encephalopathy, vascular dementia Current Diet NPO Labs/Tests Na 133 BUN 29 Cr 2.4 Pertinent Medications Reviewed Height 5 ft 2 in Weight 54.43 kg [place] Body Weight (kg) 50.00 BMI 21.9 Weight Status Appropriate Subjective/Other Information Pt NPO for planned procedure today (trach placement), however, pt not hemodynamically stable enough for anesthesia. Trach may be placed on 05/15. Last BM documented on 05/07. Pt remains on vent support. Burn Absent Trauma Absent #1 Nutrition Diagnosis Swallowing difficulty Diagnosis Progress(for reassessment Continues documentation) Is patient on ventilator? Yes Is Patient Ambulatory and/or Out of Bed No REE-([facility]-confined to bed) 1244.844 Calculation Used for Recommendations [facility] Additional Notes Pro needs >1.2g/kg: >65g/day Fluid needs 1-1.5L/day Nutrition Intervention Nutrition Support: Resume Nepro at 30ml/hr with 130ml water flush q4h. Kcal 1,296 Protein (gm) 58 Carbohydrates (gm) 116 Fat (gm) 69 Fluid (mL) 523 Fiber (gm) 9 Goal #1 Resume TF to meet nutrient needs Follow-Up By: 05/15/22 Additional Comments F/U: Trach placement, TF re- start, vent status, BM
[2022-05-13] MEDS: CEFEPIME/NS 1 GM/100 ML 1 GM/100 ML BAG IV SCH (18:06)
[2022-05-14] MEDS: EPOETIN ALFA-EPBX 20,000 UNIT/1 ML VIAL IV PRN (01:34)
[2022-05-14 05:48] LABS: Hematocrit 25.1 % (30.3-42.9); Hemoglobin 8.1 gm/dl (10.1-14.3); Mean Corpuscular HGB Conc 32 % (30-34); Mean Corpuscular Volume 89 fl (79-97); Platelet Count 260 K/mm3 (140-440); Red Blood Count 2.83 M/mm3 (3.65-5.03); Red Cell Distribution Width 15.1 % (13.2-15.2)
[2022-05-14] MEDS: IPRATROPIUM/ALBUTEROL SULFATE 3 ML AMPUL.NEB IH SCH ×3 (09:00→20:56)
[2022-05-14] MEDS: VALPROIC ACID 250 MG/5 ML ORAL LIQD FEEDTUBE SCH ×2 (09:25→21:10)
[2022-05-14] MEDS: LANSOPRAZOLE 30 MG SOLUTAB FEEDTUBE SCH (09:25)
[2022-05-14] MEDS: SCOPOLAMINE TRANSDERMAL PATCH 72 HR TD SCH (09:25)
[2022-05-14] MEDS: MEMANTINE 5 MG TAB FEEDTUBE SCH ×2 (09:25→21:10)
[2022-05-14] MEDS: MIDODRINE 10 MG TAB FEEDTUBE SCH ×3 (09:25→19:25)
[2022-05-14] MEDS: risperiDONE 1 MG TAB FEEDTUBE SCH ×2 (09:26→21:10)
[2022-05-14] MEDS: DOCUSATE SODIUM 100 MG/10 ML ORAL LIQD FEEDTUBE SCH ×2 (09:33→21:10)
[2022-05-14] MEDS: POLYETHYLENE GLYCOL 3350 17 GM POWDER FEEDTUBE SCH (09:33)
[2022-05-14] MEDS: SENNOSIDES 8.6 MG TAB FEEDTUBE SCH ×2 (09:33→21:10)
--- NOTE | 2022-05-14 11:55 | Progress Note ---
Assessment and Plan Patient is a 66-year-old female medical history of hypertension, GERD, seizure disorder, vascular dementia, ESRD on hemodialysis (TTS), osteoarthritis, bipolar disorder, schizophrenia, anxiety disorder, Liver disease and limited mobility currently a resident of [facility] and presented with altered mental status. Patient was initially seen here in the ED the day prior and was discharged but documentation on the chart as patient is currently with altered mental status and unable to provide information shows that the patient was refused by the facility stating that she had been combative and has missed several days of dialysis as a result of behavioral disturbance. On presentation patient was noted to be hypotensive more than normal and was noted with room air oxygen saturation in the 70s and unfortunately went into SVT in the 150s requiring cardiac shock being delivered under conscious sedation. Review of her charts from prior shows that her systolic blood pressure runs in the 80s and she is on midodrine outpatient. Patient started on pressors During one of her last hospitalization she was recommended to have a cholecystectomy which does not appear that was done at the time. She does not complaining any abdominal pain at this time. During that last admission also she had acute hypoxic respiratory failure but was weaned down to room air prior to discharge Patients past surgical history Hysterectomy and right upper extrmity Fistula. According to the chart, no hstory of smoking, alcohol or drug abuse. Patient admitted for Acute hypoxemic respiratory failure; Shock / Hypotension; AMS; SVT; NSTEMI; Schizophrenia; ESRD on Dialysis; Moderate protein caloric malnutrition Patient reintubated recently. Patient also hypotensive.Patient is on vasopressor levophed and vasopressin. Patient presently on assist control mechanical ventilation, Rate 14, tidal volume 450, FIO2 30%, PEEP 6 and O2 saturation running 98%. Patient sleeping, not responding to verbal stimuli. Patient not tolerated spontaneous breathing trial to day, Patient afebrile. Has leukocytosis. Blood pressure 117/54 , Pulse 110, respirations 15. Chest xray 04/22/22 reported New moderate right and trace left pleural effusions with minimal streaky airspace disease in the right midlung. CTA of chest 05/09/[address] evidence for pulmonary embolism. Large right and moderate-sized left pleural effusions with moderate body wall edema. Groundglass pulmonary opacities in the upper lobes likely representing atypical pneumonia. Patient undergone ultrasound guided thoracentesis on 05/09/22 .Total of 1000 mL of clear yellow fluid was aspirated. The patient tolerated the procedure well with no complications. A post- procedure chest x-ray was immediately ordered. IMPRESSION: Successful ultrasound-guided right thoracentesis. Pleural fluid reported yellow and clear, wbc 21, rbc 12. Pleural fluid protien and LDH levels still pending. Chest xray done 05/10/22 repoirted No adverse interval change in the chest given the difference in technique. Nodular density possibly calcified left midlung is stable. Satisfactory positioning of endotracheal tube. Patient is on I/V Norepinephrine, Vasopressin, Albuterol/atrovent aerosol treatments, Prevacid, Cefepime . Recommend DVT prophylaxis, I spent critical care time of 40 minutes reviewing the chart, examine the patient, review chest xray,CT scan of chest, lab results, talking to the nursing staff ,respiratory therapy and work up plan of treatment in this critically ill patient with multiple medical problems. - Patient Problems (1) Acute respiratory failure with hypoxia Current Visit: No Status: Acute Plan to address problem: Mechanical ventilation ,Assist control, rate 14, tidal volume 450, FIO2 30%, PEEP 6 Albuterol/atrovent aerosol treatments q 6 hours. Continue Prevacid. Recommend DVT prophylaxis. (2) Altered mental status Current Visit: Yes Status: Acute Plan to address problem: Likely from metabolic encephalopathy and senile dementia. Management as per primary care and neurology. (3) Uremic encephalopathy Current Visit: Yes Status: Acute Plan to address problem: Patient missed dialysis. Patient back on dialysis. (4) ESRD (end stage renal disease) on dialysis Current Visit: Yes Status: Chronic Plan to address problem: Patient is on dialysis. Management as per Nephrology. (5) Hypotension Current Visit: Yes Status: Chronic Qualifiers: Plan to address problem: Patient is on Nor epinephrine. and vasopressin. (6) Bipolar disorder Current Visit: No Status: Acute Plan to address problem: Recommend to consult psychiatry. Management as per primary care and Psychiatry. (7) GERD (gastroesophageal reflux disease) Current Visit: No Status: Acute Plan to address problem: Patient is on Prevacid. (8) Seizure disorder Current Visit: No Status: Chronic Plan to address problem: Management as per primary care and neurology. 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 (10) Pleural effusion Current Visit: No Status: Acute Plan to address problem: Patient undergone ultrasound guided thoracentesis on 05/09/22 .Total of 1000 mL of clear yellow fluid was aspirated. The patient tolerated the procedure well with no complications. Pleural fluid reported yellow and clear, wbc 21, rbc 12. Pleural fluid glucose 89. Pleural fluid protien and LDH levels still pending. Subjective Date of service: 05/14/22 Principal diagnosis: Neurogenic Dysphagia Interval history: Patient is a 66-year-old female medical history of hypertension, GERD, seizure disorder, vascular dementia, ESRD on hemodialysis (TTS), osteoarthritis, bipolar disorder, schizophrenia, anxiety disorder, Liver disease and limited mobility currently a resident of [facility] and presented with altered mental status. Patient was initially seen here in the ED the day prior and was discharged but documentation on the chart as patient is currently with altered mental status and unable to provide information shows that the patient was refused by the facility stating that she had been combative and has missed several days of dialysis as a result of behavioral disturbance. On presentation patient was noted to be hypotensive more than normal and was noted with room air oxygen saturation in the 70s and unfortunately went into SVT in the 150s requiring card iac shock being delivered under conscious sedation. Review of her charts from prior shows that her systolic blood pressure runs in the 80s and she is on midodrine outpatient. Patient started on pressors During one of her last hospitalization she was recommended to have a cholecystectomy which does not appear that was done at the time. She does not complaining any abdominal pain at this time. During that last admission also she had acute hypoxic respiratory failure but was weaned down to room air prior to discharge Patients past surgical history Hysterectomy and right upper extrmity Fistula. According to the chart, no hstory of smoking, alcohol or drug abuse. Patient admitted for Acute hypoxemic respiratory failure; Shock / Hypotension; AMS; SVT; NSTEMI; Schizophrenia; ESRD on Dialysis; Moderate protein caloric malnutrition Patient reintubated recently. Patient also hypotensive.Patient is on vasopressor levophed and vasopressin. Patient presently on assist control mechanical ventilation, Rate 14, tidal volume 450, FIO2 30%, PEEP 6 and O2 saturation r unning 98%. Patient sleeping, not responding to verbal stimuli. Patient not tolerated spontaneous breathing trial to day, Patient afebrile. Has leukocytosis. Blood pressure 117/54 , Pulse 110, respir ations 15. Chest xray 04/22/22 reported New moderate right and trace left pleural effusions with minimal streaky airspace disease in the right midlung. CTA of chest 05/09/[address] evidence for pulmonary embolism. Large right and moderate-sized left pleural effusions with moderate body wall edema. Groundglass pulmonary opacities in the upper lobes likely representing atypical pneumonia. Patient undergone ultrasound guided thoracentesis on 05/09/22 .Total of 1000 mL of clear yellow fluid was aspirated. The patient tolerated the procedure well with no complications. A post- procedure chest x-ray was immediately ordered. IMPRESSION: Successful ultrasound-guided right thoracentesis. Pleural fluid reported yellow and clear, wbc 21, rbc 12. Pleural fluid glucose 89 Pleural fluid protien and LDH levels still pending. Chest xray done 05/10/22 repoirted No adverse interval change in the chest given the difference in technique. Nodular density possibly calcified left midlung is stable. Satisfactory positioning of endotracheal tube. Patient is on I/V Norepinephrine, Vasopressin, Albuterol/atrovent aerosol treatments, Prevacid, Cefepime . Recommend DVT Prophylaxis. Objective Vital Signs - 12hr 05/14/22 05/14/22 05/14/22 00:00 00:15 00:30 Temperature 100.1 F H Pulse Rate 112 H 117 H 118 H Pulse Rate [ Anterior Bilateral Throughout] Pulse Rate [ 115 H From Monitor] Respiratory 14 Rate Respiratory Rate [Anterior Bilateral Throughout] Blood Pressure 133/65 116/55 118/56 O2 Sat by Pulse 100 100 Oximetry O2 Sat by Pulse Oximetry [ Anterior Bilateral Throughout] 05/14/22 05/14/22 05/14/22 00:45 01:00 01:15 Temperature Pulse Rate 116 H 116 H 115 H Pulse Rate [ Anterior Bilateral Throughout] Pulse Rate [ From Monitor] Respiratory 12 Rate Respiratory Rate [Anterior Bilateral Throughout] Blood Pressure 110/65 114/58 122/50 O2 Sat by Pulse 99 Oximetry O2 Sat by Pulse Oximetry [ Anterior Bilateral Throughout] 05/14/22 05/14/22 05/14/22 01:30 01:45 02:00 Temperature Pulse Rate 116 H 116 H 115 H Pulse Rate [ Anterior Bilateral Throughout] Pulse Rate [ From Monitor] Respiratory 17 Rate Respiratory Rate [Anterior Bilateral Throughout] Blood Pressure 111/53 104/57 100/50 O2 Sat by Pulse 98 Oximetry O2 Sat by Pulse Oximetry [ Anterior Bilateral Throughout] 05/14/22 05/14/22 05/14/22 02:15 02:30 02:45 Temperature Pulse Rate 115 H 120 H 117 H Pulse Rate [ Anterior Bilateral Throughout] Pulse Rate [ From Monitor] Respiratory Rate Respiratory Rate [Anterior Bilateral Throughout] Blood Pressure 112/61 107/59 123/57 O2 Sat by Pulse Oximetry O2 Sat by Pulse Oximetry [ Anterior Bilateral Throughout] 05/14/22 05/14/22 05/14/22 02:58 03:00 03:29 Temperature 99.2 F Pulse Rate 115 H 120 H 121 H Pulse Rate [ Anterior Bilateral Throughout] Pulse Rate [ From Monitor] Respiratory 14 26 H Rate Respiratory Rate [Anterior Bilateral Throughout] Blood Pressure 122/65 122/65 O2 Sat by Pulse 99 94 Oximetry O2 Sat by Pulse 99 Oximetry [ Anterior Bilateral Throughout] 05/14/22 05/14/22 05/14/22 04:00 04:01 05:00 Temperature 99.7 F H Pulse Rate 105 H Pulse Rate [ Anterior Bilateral Throughout] Pulse Rate [ 104 H From Monitor] Respiratory 14 14 Rate Respiratory Rate [Anterior Bilateral Throughout] Blood Pressure 115/52 111/59 O2 Sat by Pulse 100 96 100 Oximetry O2 Sat by Pulse Oximetry [ Anterior Bilateral Throughout] 05/14/22 05/14/22 05/14/22 06:00 07:00 07:49 Temperature Pulse Rate 109 H 98 H 105 H Pulse Rate [ Anterior Bilateral Throughout] Pulse Rate [ From Monitor] Respiratory 15 13 Rate Respiratory Rate [Anterior Bilateral Throughout] Blood Pressure 99/60 108/54 O2 Sat by Pulse 100 100 Oximetry O2 Sat by Pulse Oximetry [ Anterior Bilateral Throughout] 05/14/22 05/14/22 05/14/22 07:59 08:00 09:00 Temperature 100.3 F H Pulse Rate 120 H 113 H Pulse Rate [ 111 H Anterior Bilateral Throughout] Pulse Rate [ 110 H From Monitor] Respiratory 14 25 H Rate Respiratory 14 Rate [Anterior Bilateral Throughout] Blood Pressure 136/64 136/64 O2 Sat by Pulse 99 100 Oximetry O2 Sat by Pulse Oximetry [ Anterior Bilateral Throughout] 05/14/22 05/14/22 05/14/22 09:55 10:00 10:59 Temperature Pulse Rate 114 H 117 H 122 H Pulse Rate [ Anterior Bilateral Throughout] Pulse Rate [ From Monitor] Respiratory 27 H 20 Rate Respiratory Rate [Anterior Bilateral Throughout] Blood Pressure 114/52 114/52 128/62 O2 Sat by Pulse 98 98 100 Oximetry O2 Sat by Pulse Oximetry [ Anterior Bilateral Throughout] 05/14/22 05/14/22 11:00 11:52 Temperature 100 F H Pulse Rate 122 H Pulse Rate [ Anterior Bilateral Throughout] Pulse Rate [ From Monitor] Respiratory 20 Rate Respiratory Rate [Anterior Bilateral Throughout] Blood Pressure 128/62 O2 Sat by Pulse 97 Oximetry O2 Sat by Pulse Oximetry [ Anterior Bilateral Throughout] Constitutional: no acute distress, asleep, other (Sedated. Resting assist control mechanical ventilation.) Eyes: non-icteric ENT: oropharynx moist, oropharyngeal exudate pre (clear frothy) Neck: supple, no lymphadenopathy, no JVD Effort: mildly labored Ascultation: Bilateral: diminished breath sounds, rales, rhonchi Percussion: Bilateral: not dull Cardiovascular: regular rate and rhythm, other (S1,S2) Gastrointestinal: normoactive bowel sounds, soft, non-tender, non-distended, other (PEG) Integumentary: normal Extremities: no cyanosis, no edema, pulses normal, no ischemia or petechiae Neurologic: non-focal exam (grossly), pupils equal and round, other (sedated resting on mechanical ventilation.) Psychiatric: other (Sedated, sleeping. Not responding to verbal stimuli.) CBC and BMP: 05/14/22 05:36 05/13/22 04:00 ABG, PT/INR, D-dimer: ABG ABG pH 7.421 pH Units (7.350-7.450) 05/08/22 21:00 ABG pCO2 42.4 mm Hg 05/08/22 21:00 ABG pO2 68.8 mm Hg (80.0-90.0) L 05/08/22 21:00 ABG O2 Saturation 95.7 % (95.0-99.0) 05/08/22 21:00 PT/INR, D-dimer PT 15.4 Sec. (12.2-14.9) H 05/12/22 04:11 INR 1.09 (0.87-1.13) 05/12/22 04:11 Abnormal lab findings: Abnormal Labs 04/19/22 04/19/22 04/19/22 04:53 04:53 04:53 WBC RBC 3.06 L Hgb 8.6 L Hct 28.0 L RDW 16.3 H Plt Count Lymph % (Auto) [place] % (Auto) 11.3 H Lymph # (Auto) [place] # (Auto) Seg Neutrophils % Seg Neuts % (Manual) Lymphocytes % (Manual) Nucleated RBC % Seg Neutrophils # Seg Neutrophils # Man Lymphocytes # (Manual) PT INR APTT Heparin Anti-Xa Level ABG pH ABG pO2 ABG HCO3 ABG Base Excess ABG Hemoglobin Oxyhemoglobin Sodium Potassium 5.1 H Chloride Carbon Dioxide 21 L BUN 94 H Creatinine 6.3 H Glucose POC Glucose Phosphorus Magnesium Alkaline Phosphatase Troponin T 0.415 H* Total Protein Albumin 2.7 L Free T4 0.28 L Crossmatch 04/19/22 04/19/22 04/20/22 19:40 19:40 05:30 WBC 4.1 L RBC 2.97 L Hgb 8.5 L 8.2 L Hct 27.8 L 27.1 L RDW 17.0 H Plt Count Lymph % (Auto) [place] % (Auto) 15.2 H Lymph # (Auto) 1.1 L [place] # (Auto) Seg Neutrophils % Seg Neuts % (Manual) Lymphocytes % (Manual) Nucleated RBC % Seg Neutrophils # Seg Neutrophils # Man Lymphocytes # (Manual) PT 17.9 H INR 1.28 H APTT 199.1 H* Heparin Anti-Xa Level ABG pH ABG pO2 ABG HCO3 ABG Base Excess ABG Hemoglobin Oxyhemoglobin Sodium Potassium Chloride Carbon Dioxide BUN Creatinine Glucose POC Glucose Phosphorus Magnesium Alkaline Phosphatase Troponin T Total Protein Albumin Free T4 Crossmatch 04/20/22 04/20/22 04/21/22 05:30 18:23 00:29 WBC RBC Hgb Hct RDW Plt Count Lymph % (Auto) [place] % (Auto) Lymph # (Auto) [place] # (Auto) Seg Neutrophils % Seg Neuts % (Manual) Lymphocytes % (Manual) Nucleated RBC % Seg Neutrophils # Seg Neutrophils # Man Lymphocytes # (Manual) PT INR APTT Heparin Anti-Xa Level 0.17 L ABG pH ABG pO2 ABG HCO3 ABG Base Excess ABG Hemoglobin Oxyhemoglobin Sodium Potassium Chloride Carbon Dioxide 21 L BUN 95 H Creatinine 6.6 H Glucose 139 H POC Glucose Phosphorus Magnesium 2.60 H Alkaline Phosphatase Troponin T Total Protein Albumin 2.4 L Free T4 Crossmatch 04/21/22 04/21/22 04/22/22 04:00 04:00 03:45 WBC RBC 2.74 L Hgb 7.7 L Hct 24.7 L RDW 16.6 H Plt Count Lymph % (Auto) [place] % (Auto) Lymph # (Auto) [place] # (Auto) Seg Neutrophils % Seg Neuts % (Manual) Lymphocytes % (Manual) Nucleated RBC % Seg Neutrophils # Seg Neutrophils # Man Lymphocytes # (Manual) PT INR APTT Heparin Anti-Xa Level < 0.10 L ABG pH ABG pO2 ABG HCO3 ABG Base Excess ABG Hemoglobin Oxyhemoglobin Sodium 133 L Potassium Chloride Carbon Dioxide 20 L BUN 89 H Creatinine 6.6 H Glucose 131 H POC Glucose Phosphorus 6.40 H Magnesium 2.50 H Alkaline Phosphatase Troponin T Total Protein Albumin Free T4 Crossmatch 04/22/22 04/22/22 04/22/22 03:45 12:13 14:30 WBC RBC Hgb Hct RDW Plt Count Lymph % (Auto) [place] % (Auto) Lymph # (Auto) [place] # (Auto) Seg Neutrophils % Seg Neuts % (Manual) Lymphocytes % (Manual) Nucleated RBC % Seg Neutrophils # Seg Neutrophils # Man Lymphocytes # (Manual) PT INR APTT Heparin Anti-Xa Level 0.11 L 0.11 L ABG pH ABG pO2 ABG HCO3 ABG Base Excess ABG Hemoglobin Oxyhemoglobin Sodium 136 L Potassium Chloride Carbon Dioxide 18 L BUN 90 H Creatinine 6.3 H Glucose 121 H POC Glucose Phosphorus 6.50 H Magnesium Alkaline Phosphatase Troponin T Total Protein Albumin Free T4 Crossmatch 04/22/22 04/23/22 04/23/22 23:08 02:17 04:10 WBC RBC Hgb 7.3 L Hct 23.3 L RDW Plt Count Lymph % (Auto) [place] % (Auto) Lymph # (Auto) [place] # (Auto) Seg Neutrophils % Seg Neuts % (Manual) Lymphocytes % (Manual) Nucleated RBC % Seg Neutrophils # Seg Neutrophils # Man Lymphocytes # (Manual) PT INR APTT Heparin Anti-Xa Level 0.14 L ABG pH ABG pO2 ABG HCO3 ABG Base Excess ABG Hemoglobin Oxyhemoglobin Sodium Potassium Chloride Carbon Dioxide BUN Creatinine Glucose POC Glucose 153 H Phosphorus Magnesium Alkaline Phosphatase Troponin T Total Protein Albumin Free T4 Crossmatch 04/23/22 04/23/22 04/23/22 04:10 06:09 23:22 WBC RBC Hgb Hct RDW Plt Count Lymph % (Auto) [place] % (Auto) Lymph # (Auto) [place] # (Auto) Seg Neutrophils % Seg Neuts % (Manual) Lymphocytes % (Manual) Nucleated RBC % Seg Neutrophils # Seg Neutrophils # Man Lymphocytes # (Manual) PT INR APTT Heparin Anti-Xa Level ABG pH ABG pO2 ABG HCO3 ABG Base Excess ABG Hemoglobin Oxyhemoglobin Sodium Potassium Chloride Carbon Dioxide BUN 36 H Creatinine 3.4 H Glucose 131 H POC Glucose 141 H 114 H Phosphorus Magnesium Alkaline Phosphatase Troponin T Total Protein Albumin Free T4 Crossmatch 04/24/22 04/24/22 04/24/22 02:10 04:00 04:00 WBC RBC 2.48 L Hgb 7.1 L Hct 22.6 L RDW 16.9 H Plt Count Lymph % (Auto) [place] % (Auto) Lymph # (Auto) [place] # (Auto) Seg Neutrophils % Seg Neuts % (Manual) Lymphocytes % (Manual) Nucleated RBC % Seg Neutrophils # Seg Neutrophils # Man Lymphocytes # (Manual) PT INR APTT Heparin Anti-Xa Level 0.12 L ABG pH ABG pO2 ABG HCO3 ABG Base Excess ABG Hemoglobin Oxyhemoglobin Sodium 134 L Potassium Chloride Carbon Dioxide BUN 42 H Creatinine 3.9 H Glucose 141 H POC Glucose Phosphorus Magnesium Alkaline Phosphatase Troponin T Total Protein Albumin Free T4 Crossmatch 04/24/22 04/24/22 04/24/22 05:03 10:20 11:24 WBC RBC Hgb Hct RDW Plt Count Lymph % (Auto) [place] % (Auto) Lymph # (Auto) [place] # (Auto) Seg Neutrophils % Seg Neuts % (Manual) Lymphocytes % (Manual) Nucleated RBC % Seg Neutrophils # Seg Neutrophils # Man Lymphocytes # (Manual) PT INR APTT Heparin Anti-Xa Level < 0.10 L ABG pH ABG pO2 ABG HCO3 ABG Base Excess ABG Hemoglobin Oxyhemoglobin Sodium Potassium Chloride Carbon Dioxide BUN Creatinine Glucose POC Glucose 142 H 144 H Phosphorus Magnesium Alkaline Phosphatase Troponin T Total Protein Albumin Free T4 Crossmatch 04/25/22 04/25/22 04/25/22 00:15 04:11 04:11 WBC 4.4 L RBC 2.38 L Hgb 6.7 L Hct 21.7 L RDW 17.2 H Plt Count Lymph % (Auto) [place] % (Auto) Lymph # (Auto) [place] # (Auto) Seg Neutrophils % Seg Neuts % (Manual) Lymphocytes % (Manual) Nucleated RBC % Seg Neutrophils # Seg Neutrophils # Man Lymphocytes # (Manual) PT INR APTT Heparin Anti-Xa Level ABG pH ABG pO2 ABG HCO3 ABG Base Excess ABG Hemoglobin Oxyhemoglobin Sodium 134 L Potassium Chloride 97.1 L Carbon Dioxide BUN 47 H Creatinine 4.3 H Glucose 106 H POC Glucose 136 H Phosphorus Magnesium Alkaline Phosphatase Troponin T Total Protein Albumin Free T4 Crossmatch 04/25/22 04/25/22 04/25/22 06:01 15:30 22:44 WBC RBC Hgb 8.8 L Hct 28.1 L D RDW Plt Count Lymph % (Auto) [place] % (Auto) Lymph # (Auto) [place] # (Auto) Seg Neutrophils % Seg Neuts % (Manual) Lymphocytes % (Manual) Nucleated RBC % Seg Neutrophils # Seg Neutrophils # Man Lymphocytes # (Manual) PT INR APTT Heparin Anti-Xa Level ABG pH ABG pO2 ABG HCO3 ABG Base Excess ABG Hemoglobin Oxyhemoglobin Sodium Potassium Chloride Carbon Dioxide BUN Creatinine Glucose POC Glucose 137 H Phosphorus Magnesium Alkaline Phosphatase Troponin T Total Protein Albumin Free T4 Crossmatch See Detail 04/26/22 04/27/22 04/27/22 04:20 04:45 04:45 WBC RBC 2.81 L 3.13 L Hgb 8.0 L 9.0 L Hct 25.4 L 29.1 L RDW 16.2 H 17.4 H Plt Count Lymph % (Auto) [place] % (Auto) Lymph # (Auto) [place] # (Auto) Seg Neutrophils % Seg Neuts % (Manual) Lymphocytes % (Manual) Nucleated RBC % Seg Neutrophils # Seg Neutrophils # Man Lymphocytes # (Manual) PT INR APTT Heparin Anti-Xa Level ABG pH ABG pO2 ABG HCO3 ABG Base Excess ABG Hemoglobin Oxyhemoglobin Sodium 131 L Potassium Chloride 93.5 L Carbon Dioxide BUN 44 H Creatinine 3.9 H Glucose 135 H POC Glucose Phosphorus Magnesium Alkaline Phosphatase Troponin T Total Protein Albumin Free T4 Crossmatch 04/27/22 04/28/22 04/28/22 23:38 05:26 07:54 WBC 11.1 H RBC 2.40 L Hgb 6.9 L Hct 22.1 L D RDW 17.2 H Plt Count Lymph % (Auto) [place] % (Auto) Lymph # (Auto) [place] # (Auto) Seg Neutrophils % Seg Neuts % (Manual) Lymphocytes % (Manual) Nucleated RBC % Seg Neutrophils # Seg Neutrophils # Man Lymphocytes # (Manual) PT INR APTT Heparin Anti-Xa Level ABG pH ABG pO2 ABG HCO3 ABG Base Excess ABG Hemoglobin Oxyhemoglobin Sodium Potassium Chloride Carbon Dioxide BUN Creatinine Glucose POC Glucose 229 H 169 H Phosphorus Magnesium Alkaline Phosphatase Troponin T Total Protein Albumin Free T4 Crossmatch 04/28/22 04/28/22 04/29/22 12:31 17:54 00:49 WBC RBC Hgb Hct RDW Plt Count Lymph % (Auto) [place] % (Auto) Lymph # (Auto) [place] # (Auto) Seg Neutrophils % Seg Neuts % (Manual) Lymphocytes % (Manual) Nucleated RBC % Seg Neutrophils # Seg Neutrophils # Man Lymphocytes # (Manual) PT INR APTT Heparin Anti-Xa Level ABG pH ABG pO2 ABG HCO3 ABG Base Excess ABG Hemoglobin Oxyhemoglobin Sodium Potassium Chloride Carbon Dioxide BUN Creatinine Glucose POC Glucose 132 H 138 H 189 H Phosphorus Magnesium Alkaline Phosphatase Troponin T Total Protein Albumin Free T4 Crossmatch 04/29/22 04/29/22 04/29/22 06:42 10:54 10:54 WBC 11.8 H RBC 2.93 L Hgb 8.6 L Hct 26.2 L RDW 16.8 H Plt Count Lymph % (Auto) [place] % (Auto) Lymph # (Auto) [place] # (Auto) Seg Neutrophils % Seg Neuts % (Manual) Lymphocytes % (Manual) Nucleated RBC % Seg Neutrophils # Seg Neutrophils # Man Lymphocytes # (Manual) PT INR APTT Heparin Anti-Xa Level ABG pH ABG pO2 ABG HCO3 ABG Base Excess ABG Hemoglobin Oxyhemoglobin Sodium 129 L Potassium Chloride 91.5 L Carbon Dioxide BUN 46 H Creatinine 3.1 H Glucose 180 H POC Glucose 196 H Phosphorus Magnesium Alkaline Phosphatase Troponin T Total Protein Albumin Free T4 Crossmatch 04/29/22 04/29/22 04/30/22 12:03 23:32 05:57 WBC RBC Hgb Hct RDW Plt Count Lymph % (Auto) [place] % (Auto) Lymph # (Auto) [place] # (Auto) Seg Neutrophils % Seg Neuts % (Manual) Lymphocytes % (Manual) Nucleated RBC % Seg Neutrophils # Seg Neutrophils # Man Lymphocytes # (Manual) PT INR APTT Heparin Anti-Xa Level ABG pH ABG pO2 ABG HCO3 ABG Base Excess ABG Hemoglobin Oxyhemoglobin Sodium Potassium Chloride Carbon Dioxide BUN Creatinine Glucose POC Glucose 169 H 170 H 151 H Phosphorus Magnesium Alkaline Phosphatase Troponin T Total Protein Albumin Free T4 Crossmatch 04/30/22 04/30/22 04/30/22 11:28 16:39 23:22 WBC RBC Hgb Hct RDW Plt Count Lymph % (Auto) [place] % (Auto) Lymph # (Auto) [place] # (Auto) Seg Neutrophils % Seg Neuts % (Manual) Lymphocytes % (Manual) Nucleated RBC % Seg Neutrophils # Seg Neutrophils # Man Lymphocytes # (Manual) PT INR APTT Heparin Anti-Xa Level ABG pH ABG pO2 ABG HCO3 ABG Base Excess ABG Hemoglobin Oxyhemoglobin Sodium Potassium Chloride Carbon Dioxide BUN Creatinine Glucose POC Glucose 159 H 147 H 170 H Phosphorus Magnesium Alkaline Phosphatase Troponin T Total Protein Albumin Free T4 Crossmatch 05/01/22 05/01/22 05/01/22 04:00 05:34 15:23 WBC RBC 2.92 L Hgb 8.4 L Hct 26.7 L RDW 16.6 H Plt Count Lymph % (Auto) [place] % (Auto) Lymph # (Auto) [place] # (Auto) Seg Neutrophils % Seg Neuts % (Manual) Lymphocytes % (Manual) Nucleated RBC % Seg Neutrophils # Seg Neutrophils # Man Lymphocytes # (Manual) PT INR APTT Heparin Anti-Xa Level ABG pH ABG pO2 74.2 L ABG HCO3 27.8 H ABG Base Excess ABG Hemoglobin 8.7 L Oxyhemoglobin 94.5 L Sodium Potassium Chloride Carbon Dioxide BUN Creatinine Glucose POC Glucose 140 H Phosphorus Magnesium Alkaline Phosphatase Troponin T Total Protein Albumin Free T4 Crossmatch 05/02/22 05/02/22 05/02/22 05:54 05:54 05:54 WBC RBC 2.85 L Hgb 8.3 L Hct 25.9 L RDW 16.5 H Plt Count Lymph % (Auto) [place] % (Auto) Lymph # (Auto) [place] # (Auto) Seg Neutrophils % Seg Neuts % (Manual) Lymphocytes % (Manual) Nucleated RBC % Seg Neutrophils # Seg Neutrophils # Man Lymphocytes # (Manual) PT INR APTT Heparin Anti-Xa Level ABG pH ABG pO2 ABG HCO3 ABG Base Excess ABG Hemoglobin Oxyhemoglobin Sodium 130 L 128 L Potassium Chloride 90.9 L 90.0 L Carbon Dioxide BUN 49 H 49 H Creatinine 3.7 H 3.8 H Glucose 191 H 184 H POC Glucose Phosphorus Magnesium Alkaline Phosphatase Troponin T Total Protein Albumin Free T4 Crossmatch 05/02/22 05/03/22 05/03/22 14:15 04:24 04:24 WBC RBC 2.71 L Hgb 7.8 L Hct 24.8 L RDW 16.6 H Plt Count Lymph % (Auto) [place] % (Auto) Lymph # (Auto) [place] # (Auto) Seg Neutrophils % Seg Neuts % (Manual) Lymphocytes % (Manual) Nucleated RBC % Seg Neutrophils # Seg Neutrophils # Man Lymphocytes # (Manual) PT INR APTT 39.4 H Heparin Anti-Xa Level ABG pH ABG pO2 ABG HCO3 29.1 H ABG Base Excess 4.3 H ABG Hemoglobin 8.4 L Oxyhemoglobin 94.8 L Sodium Potassium Chloride Carbon Dioxide BUN Creatinine Glucose POC Glucose Phosphorus Magnesium Alkaline Phosphatase Troponin T Total Protein Albumin Free T4 Crossmatch 05/03/22 05/03/22 05/03/22 04:24 15:17 17:30 WBC RBC Hgb Hct RDW Plt Count Lymph % (Auto) [place] % (Auto) Lymph # (Auto) [place] # (Auto) Seg Neutrophils % Seg Neuts % (Manual) Lymphocytes % (Manual) Nucleated RBC % Seg Neutrophils # Seg Neutrophils # Man Lymphocytes # (Manual) PT INR APTT Heparin Anti-Xa Level ABG pH 7.577 H ABG pO2 140.4 H ABG HCO3 26.4 H ABG Base Excess 4.0 H ABG Hemoglobin 5.4 L Oxyhemoglobin Sodium 132 L Potassium Chloride 93.0 L Carbon Dioxide BUN 31 H Creatinine 2.8 H Glucose 119 H POC Glucose 60 L Phosphorus 2.10 L Magnesium Alkaline Phosphatase Troponin T Total Protein Albumin Free T4 Crossmatch 05/03/22 05/04/22 05/04/22 23:33 04:26 04:26 WBC 16.0 H RBC 2.39 L Hgb 6.9 L Hct 21.4 L RDW 15.8 H Plt Count Lymph % (Auto) [place] % (Auto) Lymph # (Auto) [place] # (Auto) Seg Neutrophils % Seg Neuts % (Manual) Lymphocytes % (Manual) Nucleated RBC % Seg Neutrophils # Seg Neutrophils # Man Lymphocytes # (Manual) PT INR APTT Heparin Anti-Xa Level ABG pH ABG pO2 ABG HCO3 ABG Base Excess ABG Hemoglobin Oxyhemoglobin Sodium 133 L Potassium Chloride 94.8 L Carbon Dioxide BUN 34 H Creatinine 3.5 H Glucose 175 H POC Glucose 106 H Phosphorus Magnesium Alkaline Phosphatase Troponin T Total Protein Albumin Free T4 Crossmatch 05/04/22 05/04/22 05/04/22 04:26 05:30 05:40 WBC RBC Hgb Hct RDW Plt Count Lymph % (Auto) [place] % (Auto) Lymph # (Auto) [place] # (Auto) Seg Neutrophils % Seg Neuts % (Manual) Lymphocytes % (Manual) Nucleated RBC % Seg Neutrophils # Seg Neutrophils # Man Lymphocytes # (Manual) PT 17.6 H INR 1.29 H APTT Heparin Anti-Xa Level ABG pH 7.547 H ABG pO2 141.7 H ABG HCO3 27.2 H ABG Base Excess 5.3 H ABG Hemoglobin 6.9 L Oxyhemoglobin Sodium Potassium Chloride Carbon Dioxide BUN Creatinine Glucose POC Glucose Phosphorus Magnesium Alkaline Phosphatase Troponin T Total Protein Albumin Free T4 Crossmatch See Detail 05/04/22 05/04/22 05/04/22 05:41 12:55 18:10 WBC RBC Hgb Hct RDW Plt Count Lymph % (Auto) [place] % (Auto) Lymph # (Auto) [place] # (Auto) Seg Neutrophils % Seg Neuts % (Manual) Lymphocytes % (Manual) Nucleated RBC % Seg Neutrophils # Seg Neutrophils # Man Lymphocytes # (Manual) PT INR APTT Heparin Anti-Xa Level ABG pH ABG pO2 ABG HCO3 ABG Base Excess ABG Hemoglobin Oxyhemoglobin Sodium Potassium Chloride Carbon Dioxide BUN Creatinine Glucose POC Glucose 177 H 141 H 143 H Phosphorus Magnesium Alkaline Phosphatase Troponin T Total Protein Albumin Free T4 Crossmatch 05/05/22 05/05/22 05/05/22 00:05 04:20 04:20 WBC 12.8 H RBC 2.81 L Hgb 8.0 L Hct 24.8 L RDW 16.8 H Plt Count Lymph % (Auto) [place] % (Auto) Lymph # (Auto) [place] # (Auto) Seg Neutrophils % Seg Neuts % (Manual) 86.0 H Lymphocytes % (Manual) 4.0 L Nucleated RBC % 1.0 H Seg Neutrophils # Seg Neutrophils # Man 11.0 H Lymphocytes # (Manual) 0.5 L PT INR APTT Heparin Anti-Xa Level ABG pH ABG pO2 ABG HCO3 ABG Base Excess ABG Hemoglobin Oxyhemoglobin Sodium 130 L Potassium 3.3 L Chloride 94.0 L Carbon Dioxide BUN 24 H Creatinine 2.3 H Glucose 163 H POC Glucose 163 H Phosphorus 1.50 L Magnesium Alkaline Phosphatase Troponin T Total Protein Albumin Free T4 Crossmatch 05/05/22 05/05/22 05/05/22 05:18 10:06 12:11 WBC RBC Hgb Hct RDW Plt Count Lymph % (Auto) [place] % (Auto) Lymph # (Auto) [place] # (Auto) Seg Neutrophils % Seg Neuts % (Manual) Lymphocytes % (Manual) Nucleated RBC % Seg Neutrophils # Seg Neutrophils # Man Lymphocytes # (Manual) PT INR APTT Heparin Anti-Xa Level ABG pH ABG pO2 91.7 H ABG HCO3 27.4 H ABG Base Excess ABG Hemoglobin 11.4 L Oxyhemoglobin Sodium Potassium Chloride Carbon Dioxide BUN Creatinine Glucose POC Glucose 163 H 186 H Phosphorus Magnesium Alkaline Phosphatase Troponin T Total Protein Albumin Free T4 Crossmatch 05/05/22 05/06/22 05/06/22 16:29 04:45 04:59 WBC RBC Hgb Hct RDW Plt Count Lymph % (Auto) [place] % (Auto) Lymph # (Auto) [place] # (Auto) Seg Neutrophils % Seg Neuts % (Manual) Lymphocytes % (Manual) Nucleated RBC % Seg Neutrophils # Seg Neutrophils # Man Lymphocytes # (Manual) PT INR APTT Heparin Anti-Xa Level ABG pH ABG pO2 112.7 H ABG HCO3 ABG Base Excess ABG Hemoglobin 7.8 L Oxyhemoglobin Sodium Potassium Chloride Carbon Dioxide BUN Creatinine Glucose POC Glucose 170 H 146 H Phosphorus Magnesium Alkaline Phosphatase Troponin T Total Protein Albumin Free T4 Crossmatch 05/06/22 05/06/22 05/06/22 05:02 05:02 11:34 WBC RBC 2.78 L Hgb 7.9 L Hct 25.1 L RDW 16.7 H Plt Count 119 L Lymph % (Auto) [place] % (Auto) Lymph # (Auto) [place] # (Auto) Seg Neutrophils % Seg Neuts % (Manual) Lymphocytes % (Manual) Nucleated RBC % Seg Neutrophils # Seg Neutrophils # Man Lymphocytes # (Manual) PT INR APTT Heparin Anti-Xa Level ABG pH ABG pO2 ABG HCO3 ABG Base Excess ABG Hemoglobin Oxyhemoglobin Sodium 135 L Potassium 3.3 L Chloride 97.9 L Carbon Dioxide BUN 30 H Creatinine 2.7 H Glucose 148 H POC Glucose 130 H Phosphorus 1.50 L Magnesium Alkaline Phosphatase Troponin T Total Protein Albumin Free T4 Crossmatch 05/06/22 05/06/22 05/07/22 16:48 23:34 04:15 WBC RBC 2.95 L Hgb 8.4 L Hct 26.7 L RDW 16.7 H Plt Count 112 L Lymph % (Auto) [place] % (Auto) Lymph # (Auto) [place] # (Auto) Seg Neutrophils % Seg Neuts % (Manual) Lymphocytes % (Manual) Nucleated RBC % Seg Neutrophils # Seg Neutrophils # Man Lymphocytes # (Manual) PT INR APTT Heparin Anti-Xa Level ABG pH ABG pO2 ABG HCO3 ABG Base Excess ABG Hemoglobin Oxyhemoglobin Sodium Potassium Chloride Carbon Dioxide BUN Creatinine Glucose POC Glucose 121 H 145 H Phosphorus Magnesium Alkaline Phosphatase Troponin T Total Protein Albumin Free T4 Crossmatch 05/07/22 05/07/22 05/07/22 04:15 05:26 11:08 WBC RBC Hgb Hct RDW Plt Count Lymph % (Auto) [place] % (Auto) Lymph # (Auto) [place] # (Auto) Seg Neutrophils % Seg Neuts % (Manual) Lymphocytes % (Manual) Nucleated RBC % Seg Neutrophils # Seg Neutrophils # Man Lymphocytes # (Manual) PT INR APTT Heparin Anti-Xa Level ABG pH ABG pO2 ABG HCO3 ABG Base Excess ABG Hemoglobin Oxyhemoglobin Sodium 131 L Potassium 3.4 L Chloride 95.3 L Carbon Dioxide BUN 28 H Creatinine 2.5 H Glucose 140 H POC Glucose 136 H 136 H Phosphorus 1.20 L Magnesium Alkaline Phosphatase Troponin T Total Protein Albumin Free T4 Crossmatch 05/07/22 05/07/22 05/08/22 17:26 23:23 04:06 WBC RBC 2.87 L Hgb 8.2 L Hct 25.8 L RDW 16.2 H Plt Count 118 L Lymph % (Auto) [place] % (Auto) Lymph # (Auto) [place] # (Auto) Seg Neutrophils % Seg Neuts % (Manual) Lymphocytes % (Manual) Nucleated RBC % Seg Neutrophils # Seg Neutrophils # Man Lymphocytes # (Manual) PT INR APTT Heparin Anti-Xa Level ABG pH ABG pO2 ABG HCO3 ABG Base Excess ABG Hemoglobin Oxyhemoglobin Sodium Potassium Chloride Carbon Dioxide BUN Creatinine Glucose POC Glucose 135 H 123 H Phosphorus Magnesium Alkaline Phosphatase Troponin T Total Protein Albumin Free T4 Crossmatch 05/08/22 05/08/22 05/08/22 04:06 04:40 11:31 WBC RBC Hgb Hct RDW Plt Count Lymph % (Auto) [place] % (Auto) Lymph # (Auto) [place] # (Auto) Seg Neutrophils % Seg Neuts % (Manual) Lymphocytes % (Manual) Nucleated RBC % Seg Neutrophils # Seg Neutrophils # Man Lymphocytes # (Manual) PT INR APTT Heparin Anti-Xa Level ABG pH 7.482 H ABG pO2 103.9 H ABG HCO3 ABG Base Excess ABG Hemoglobin 8.1 L Oxyhemoglobin Sodium 132 L Potassium 3.3 L Chloride 93.2 L Carbon Dioxide BUN 36 H Creatinine 2.9 H Glucose 145 H POC Glucose 138 H Phosphorus 2.00 L D Magnesium Alkaline Phosphatase Troponin T Total Protein Albumin Free T4 Crossmatch 05/08/22 05/08/22 05/08/22 16:11 21:00 23:46 WBC RBC Hgb Hct RDW Plt Count Lymph % (Auto) [place] % (Auto) Lymph # (Auto) [place] # (Auto) Seg Neutrophils % Seg Neuts % (Manual) Lymphocytes % (Manual) Nucleated RBC % Seg Neutrophils # Seg Neutrophils # Man Lymphocytes # (Manual) PT INR APTT Heparin Anti-Xa Level ABG pH ABG pO2 68.8 L ABG HCO3 27.0 H ABG Base Excess ABG Hemoglobin 8.4 L Oxyhemoglobin 93.4 L Sodium Potassium Chloride Carbon Dioxide BUN Creatinine Glucose POC Glucose 134 H 142 H Phosphorus Magnesium Alkaline Phosphatase Troponin T Total Protein Albumin Free T4 Crossmatch 05/09/22 05/09/22 05/09/22 04:25 04:25 11:29 WBC RBC 2.86 L Hgb 8.0 L Hct 25.7 L RDW 16.2 H Plt Count 101 L Lymph % (Auto) [place] % (Auto) Lymph # (Auto) [place] # (Auto) Seg Neutrophils % Seg Neuts % (Manual) Lymphocytes % (Manual) Nucleated RBC % Seg Neutrophils # Seg Neutrophils # Man Lymphocytes # (Manual) PT INR APTT Heparin Anti-Xa Level ABG pH ABG pO2 ABG HCO3 ABG Base Excess ABG Hemoglobin Oxyhemoglobin Sodium 132 L Potassium 3.5 L Chloride 93.7 L Carbon Dioxide BUN 42 H Creatinine 3.0 H Glucose 145 H POC Glucose 180 H Phosphorus Magnesium Alkaline Phosphatase Troponin T Total Protein Albumin Free T4 Crossmatch 05/09/22 05/10/22 05/10/22 16:19 05:55 16:37 WBC RBC Hgb Hct RDW Plt Count Lymph % (Auto) [place] % (Auto) Lymph # (Auto) [place] # (Auto) Seg Neutrophils % Seg Neuts % (Manual) Lymphocytes % (Manual) Nucleated RBC % Seg Neutrophils # Seg Neutrophils # Man Lymphocytes # (Manual) PT INR APTT Heparin Anti-Xa Level ABG pH ABG pO2 ABG HCO3 ABG Base Excess ABG Hemoglobin Oxyhemoglobin Sodium Potassium Chloride Carbon Dioxide BUN Creatinine Glucose POC Glucose 143 H 164 H 130 H Phosphorus Magnesium Alkaline Phosphatase Troponin T Total Protein Albumin Free T4 Crossmatch 05/11/22 05/11/22 05/11/22 00:56 05:13 18:11 WBC RBC Hgb Hct RDW Plt Count Lymph % (Auto) [place] % (Auto) Lymph # (Auto) [place] # (Auto) Seg Neutrophils % Seg Neuts % (Manual) Lymphocytes % (Manual) Nucleated RBC % Seg Neutrophils # Seg Neutrophils # Man Lymphocytes # (Manual) PT INR APTT Heparin Anti-Xa Level ABG pH ABG pO2 ABG HCO3 ABG Base Excess ABG Hemoglobin Oxyhemoglobin Sodium Potassium Chloride Carbon Dioxide BUN Creatinine Glucose POC Glucose 179 H 139 H 166 H Phosphorus Magnesium Alkaline Phosphatase Troponin T Total Protein Albumin Free T4 Crossmatch 05/11/22 05/12/22 05/12/22 23:53 04:11 04:11 WBC 18.0 H RBC 2.56 L Hgb 7.2 L Hct 23.2 L RDW 16.4 H Plt Count Lymph % (Auto) 7.8 L [place] % (Auto) 14.2 H Lymph # (Auto) [place] # (Auto) 2.5 H Seg Neutrophils % 77.1 H Seg Neuts % (Manual) Lymphocytes % (Manual) Nucleated RBC % Seg Neutrophils # 13.9 H Seg Neutrophils # Man Lymphocytes # (Manual) PT 15.4 H INR APTT Heparin Anti-Xa Level ABG pH ABG pO2 ABG HCO3 ABG Base Excess ABG Hemoglobin Oxyhemoglobin Sodium Potassium Chloride Carbon Dioxide BUN Creatinine Glucose POC Glucose 115 H Phosphorus Magnesium Alkaline Phosphatase Troponin T Total Protein Albumin Free T4 Crossmatch 05/12/22 05/12/22 05/12/22 05:03 06:00 06:07 WBC RBC Hgb Hct RDW Plt Count Lymph % (Auto) [place] % (Auto) Lymph # (Auto) [place] # (Auto) Seg Neutrophils % Seg Neuts % (Manual) Lymphocytes % (Manual) Nucleated RBC % Seg Neutrophils # Seg Neutrophils # Man Lymphocytes # (Manual) PT INR APTT Heparin Anti-Xa Level ABG pH ABG pO2 ABG HCO3 ABG Base Excess ABG Hemoglobin Oxyhemoglobin Sodium 133 L Potassium Chloride 94.1 L Carbon Dioxide BUN 29 H Creatinine 2.4 H Glucose 145 H POC Glucose 122 H Phosphorus Magnesium Alkaline Phosphatase 332 H Troponin T Total Protein 4.8 L Albumin 2.0 L Free T4 Crossmatch See Detail 05/12/22 05/12/22 05/12/22 11:36 16:44 18:00 WBC RBC Hgb 8.7 L Hct 27.1 L RDW Plt Count Lymph % (Auto) [place] % (Auto) Lymph # (Auto) [place] # (Auto) Seg Neutrophils % Seg Neuts % (Manual) Lymphocytes % (Manual) Nucleated RBC % Seg Neutrophils # Seg Neutrophils # Man Lymphocytes # (Manual) PT INR APTT Heparin Anti-Xa Level ABG pH ABG pO2 ABG HCO3 ABG Base Excess ABG Hemoglobin Oxyhemoglobin Sodium Potassium Chloride Carbon Dioxide BUN Creatinine Glucose POC Glucose 143 H 121 H Phosphorus Magnesium Alkaline Phosphatase Troponin T Total Protein Albumin Free T4 Crossmatch 05/12/22 05/13/22 05/13/22 23:06 04:00 04:00 WBC 16.6 H RBC 3.04 L Hgb 8.8 L Hct 26.9 L RDW 15.3 H Plt Count Lymph % (Auto) [place] % (Auto) Lymph # (Auto) [place] # (Auto) Seg Neutrophils % Seg Neuts % (Manual) Lymphocytes % (Manual) Nucleated RBC % Seg Neutrophils # Seg Neutrophils # Man Lymphocytes # (Manual) PT INR APTT Heparin Anti-Xa Level ABG pH ABG pO2 ABG HCO3 ABG Base Excess ABG Hemoglobin Oxyhemoglobin Sodium 131 L Potassium Chloride 93.2 L Carbon Dioxide BUN 38 H Creatinine 2.7 H Glucose 145 H POC Glucose 129 H Phosphorus Magnesium Alkaline Phosphatase Troponin T Total Protein Albumin Free T4 Crossmatch 05/13/22 05/13/22 05/13/22 05:00 12:17 18:08 WBC RBC Hgb Hct RDW Plt Count Lymph % (Auto) [place] % (Auto) Lymph # (Auto) [place] # (Auto) Seg Neutrophils % Seg Neuts % (Manual) Lymphocytes % (Manual) Nucleated RBC % Seg Neutrophils # Seg Neutrophils # Man Lymphocytes # (Manual) PT INR APTT Heparin Anti-Xa Level ABG pH ABG pO2 ABG HCO3 ABG Base Excess ABG Hemoglobin Oxyhemoglobin Sodium Potassium Chloride Carbon Dioxide BUN Creatinine Glucose POC Glucose 136 H 143 H 142 H Phosphorus Magnesium Alkaline Phosphatase Troponin T Total Protein Albumin Free T4 Crossmatch 05/14/22 05/14/22 05/14/22 00:22 04:30 05:36 WBC 13.4 H RBC 2.83 L Hgb 8.1 L Hct 25.1 L RDW Plt Count Lymph % (Auto) [place] % (Auto) Lymph # (Auto) [place] # (Auto) Seg Neutrophils % Seg Neuts % (Manual) Lymphocytes % (Manual) Nucleated RBC % Seg Neutrophils # Seg Neutrophils # Man Lymphocytes # (Manual) PT INR APTT Heparin Anti-Xa Level ABG pH ABG pO2 ABG HCO3 ABG Base Excess ABG Hemoglobin Oxyhemoglobin Sodium Potassium Chloride Carbon Dioxide BUN Creatinine Glucose POC Glucose 147 H 122 H Phosphorus Magnesium Alkaline Phosphatase Troponin T Total Protein Albumin Free T4 Crossmatch Allied health notes reviewed: RT
[2022-05-14 12:06] LABS: ABG Base Excess 6.5 mmol/L (-2.0-3.0); ABG HCO3 30.6 mmol/L (20.0-26.0); ABG Methemoglobin 0.6 % (0.0-1.5); ABG PCO2 42.1 mm Hg; ABG PH 7.479 pH Units (7.350-7.450); ABG PO2 81.2 mm Hg (80.0-90.0)
--- NOTE | 2022-05-14 13:11 | Progress Note ---
Assessment and Plan Impression: * End stage renal disease * AMS * SVT s/p cardioversion * IJ thrombus * NSTEMI * SIRS * Hypotension * Anemia secondary to ESRD * Secondary hyperparathyroidism Plan: * No acute need for HD today - patient is s/p HD on Sunday * Continue HD TTS schedule * UF as tolerated * Midodrine TID * Maintain MAP>65, vasopressors prn * Avoid potential nephrotoxins * Epogen TIW prn * Nutrition via PEG * Dose medications for renal function Subjective Date of service: 05/14/22 Principal diagnosis: Neurogenic dysphagia Interval history: Patient remains intubated - ACVC TV 450, Rate 14, FiO2 30, PEEP 6 She is currently off pressors - Levophed on hold since yesterday afternoon Objective - Vital Signs Vital signs: Vital Signs - 12hr 05/14/22 05/14/22 05/14/22 01:15 01:30 01:45 Temperature Pulse Rate 115 H 116 H 116 H Pulse Rate [ Anterior Bilateral Throughout] Pulse Rate [ From Monitor] Respiratory Rate Respiratory Rate [Anterior Bilateral Throughout] Blood Pressure 122/50 111/53 104/57 O2 Sat by Pulse Oximetry O2 Sat by Pulse Oximetry [ Anterior Bilateral Throughout] 05/14/22 05/14/22 05/14/22 02:00 02:15 02:30 Temperature Pulse Rate 115 H 115 H 120 H Pulse Rate [ Anterior Bilateral Throughout] Pulse Rate [ From Monitor] Respiratory 17 Rate Respiratory Rate [Anterior Bilateral Throughout] Blood Pressure 100/50 112/61 107/59 O2 Sat by Pulse 98 Oximetry O2 Sat by Pulse Oximetry [ Anterior Bilateral Throughout] 05/14/22 05/14/22 05/14/22 02:45 02:58 03:00 Temperature 99.2 F Pulse Rate 117 H 115 H 120 H Pulse Rate [ Anterior Bilateral Throughout] Pulse Rate [ From Monitor] Respiratory 14 26 H Rate Respiratory Rate [Anterior Bilateral Throughout] Blood Pressure 123/57 122/65 122/65 O2 Sat by Pulse 99 Oximetry O2 Sat by Pulse 99 Oximetry [ Anterior Bilateral Throughout] 05/14/22 05/14/22 05/14/22 03:29 04:00 04:01 Temperature 99.7 F H Pulse Rate 121 H Pulse Rate [ Anterior Bilateral Throughout] Pulse Rate [ 104 H From Monitor] Respiratory 14 Rate Respiratory Rate [Anterior Bilateral Throughout] Blood Pressure 115/52 O2 Sat by Pulse 94 100 96 Oximetry O2 Sat by Pulse Oximetry [ Anterior Bilateral Throughout] 05/14/22 05/14/22 05/14/22 05:00 06:00 07:00 Temperature Pulse Rate 105 H 109 H 98 H Pulse Rate [ Anterior Bilateral Throughout] Pulse Rate [ From Monitor] Respiratory 14 15 13 Rate Respiratory Rate [Anterior Bilateral Throughout] Blood Pressure 111/59 99/60 108/54 O2 Sat by Pulse 100 100 100 Oximetry O2 Sat by Pulse Oximetry [ Anterior Bilateral Throughout] 05/14/22 05/14/22 05/14/22 07:49 07:59 08:00 Temperature 100.3 F H Pulse Rate 105 H 120 H Pulse Rate [ Anterior Bilateral Throughout] Pulse Rate [ 110 H From Monitor] Respiratory 14 Rate Respiratory Rate [Anterior Bilateral Throughout] Blood Pressure 136/64 O2 Sat by Pulse 99 Oximetry O2 Sat by Pulse Oximetry [ Anterior Bilateral Throughout] 05/14/22 05/14/22 05/14/22 09:00 09:55 10:00 Temperature Pulse Rate 113 H 114 H 117 H Pulse Rate [ 111 H Anterior Bilateral Throughout] Pulse Rate [ From Monitor] Respiratory 25 H 27 H 20 Rate Respiratory 14 Rate [Anterior Bilateral Throughout] Blood Pressure 136/64 114/52 114/52 O2 Sat by Pulse 100 98 98 Oximetry O2 Sat by Pulse Oximetry [ Anterior Bilateral Throughout] 05/14/22 05/14/22 05/14/22 10:59 11:00 11:52 Temperature 100 F H Pulse Rate 122 H 122 H Pulse Rate [ Anterior Bilateral Throughout] Pulse Rate [ From Monitor] Respiratory 20 Rate Respiratory Rate [Anterior Bilateral Throughout] Blood Pressure 128/62 128/62 O2 Sat by Pulse 100 97 Oximetry O2 Sat by Pulse Oximetry [ Anterior Bilateral Throughout] 05/14/22 05/14/22 05/14/22 12:00 12:27 13:00 Temperature Pulse Rate 110 H 111 H 108 H Pulse Rate [ Anterior Bilateral Throughout] Pulse Rate [ 111 H From Monitor] Respiratory 17 16 Rate Respiratory Rate [Anterior Bilateral Throughout] Blood Pressure 93/53 116/66 O2 Sat by Pulse 98 100 Oximetry O2 Sat by Pulse Oximetry [ Anterior Bilateral Throughout] - General Appearance General appearance: well-developed, well-nourished, intubated EENT: ATNC, other (ETT in place) Respiratory: Present: Other (coarse breath sounds) Cardiology: regular, S1S2 Neurologic: other (awake) Musculoskeletal: other (bilateral UE/LE edema) - Lab 05/14/22 05:36 05/13/22 04:00 Most recent lab results ABG pH 7.479 pH Units (7.350-7.450) H 05/14/22 11:15 ABG pCO2 42.1 mm Hg 05/14/22 11:15 ABG pO2 81.2 mm Hg (80.0-90.0) 05/14/22 11:15 ABG HCO3 30.6 mmol/L (20.0-26.0) H 05/14/22 11:15 ABG O2 Saturation 97.0 % (95.0-99.0) 05/14/22 11:15 Calcium 8.8 mg/dL (8.4-10.2) 05/13/22 04:00 Phosphorus 3.00 mg/dL (2.5-4.5) D 05/09/22 04:25 Magnesium 1.80 mg/dL (1.7-2.3) 05/09/22 04:25 Medications & Allergies - Medications Allergies/Adverse Reactions: Allergies buspirone [From BuSpar] Allergy (Verified 04/18/22 12:22) Unknown Penicillins Allergy (Verified 04/18/22 12:22) Rash corn Adverse Reaction (Verified 04/18/22 12:22) Unknown Home Medications: Home Medications Medication Instructions Recorded Confirmed Last Taken Type Sevelamer Carbonate [Renvela] 0.8 gram PO TIDWM 09/02/20 02/02/22 05/31/21 His tory HYDROcodone/APAP 5-325 [[place] 1 each PO Q4HR PRN #30 tablet 05/18/21 02/02/22 Unknown Rx 5-325 mg TAB] ALBUTEROL NEB's [Proventil 0.083% 2.5 mg IH Q3HRT PRN #1 nebu 03/03/22 Unknown Rx NEBS] Clopidogrel [Plavix] 75 mg PO QDAY #90 tablet 03/03/[address] [Depakote Dr] 750 mg PO BID #60 tablet 03/03/22 Unknown Rx LORazepam [Ativan] 1 mg PO DAILY #30 tab 03/03/22 Unknown Rx Memantine Xr [Namenda Xr] 5 mg PO DAILY #30 cap 03/03/22 Unknown Rx Midodrine [Proamatine] 10 mg PO TID #90 tab 03/03/22 Unknown Rx Pantoprazole [Protonix TAB] 40 mg PO DAILY #30 tab 03/03/22 Unknown Rx QUEtiapine [SEROquel] 400 mg PO BID #60 tab 03/03/22 Unknown Rx risperiDONE [RisperDAL] 0.5 mg PO BID #60 tab 03/03/22 Unknown Rx Active Medications: Generic Name Dose Route Start Last Admin Trade Name Freq PRN Reason Stop Dose Admin Acetaminophen 650 mg 04/22/22 20:12 05/12/22 23:29 Acetaminophen 325 Mg/10.15 Ml Oral Liqd Unit Dose PO 650 mg Q6H PRN Administration Pain MILD(1-3)/Fever >100.5/DRAKE Albumin Human 25 gm 04/21/22 13:00 04/22/22 16:31 Albumin Human 25% (25 Gm/100 Ml) Inj IV 25 gm BIANCA PRN Administration Hypotension Albuterol 2.5 mg 04/21/22 08:30 04/24/22 16:51 Albuterol 2.5 Mg/3 Ml Nebu IH 2.5 mg Q3HRT PRN Administration Shortness Of Breath Albuterol/Ipratropium 1 ampul 04/21/22 14:00 05/14/22 09:00 Ipratropium/Albuterol Sulfate 3 Ml Ampul.Neb IH 1 ampul TIDRT CONNOR Administration Docusate Sodium 100 mg 05/01/22 22:00 05/14/22 09:33 Docusate Sodium 100 Mg/10 Ml Oral Liqd FEEDTUBE Not Given BID CONNOR Epoetin Lb-epbx 20,000 unit 04/23/22 12:00 05/14/22 01:34 Epoetin Lb-Epbx 20,000 Unit/1 Ml Vial IV 20,000 unit BIANCA PRN Administration HEMODIALYSIS Fentanyl 50 mcg 05/03/22 10:29 05/05/22 12:23 Fentanyl 100 Mcg/2 Ml Inj IV 25 mcg Q10MIN PRN Administration ANALGESIA Sodium Chloride 100 mls @ 999 mls/hr 04/22/22 09:12 Nacl 0.9% IV BIANCA PRN Hypotension Fentanyl Citrate 2,000 mcg in 100 mls @ 2.722 mls/hr 05/03/22 11:00 Fentanyl Drip Premix IV TITR CONNOR Protocol 1 MCG/KG/HR Vasopressin 20 unit/ Sodium 101 mls @ 9.09 mls/hr 05/04/22 00:30 05/06/22 11:21 Chloride IV 0 units/min TITR CONNOR 0 mls/hr Infusion 0.03 UNITS/MIN NORepinephrine/NS 8 MG-250 ML 8 mg in 250 mls @ 3.75 mls/hr 05/11/22 21:23 05/13/22 12:21 Norepinephrine/Ns 8 Mg-250 Ml (Double Conc) IV 0 mcg/min TITRATE CONNOR 0 mls/hr Titration Protocol 2 MCG/MIN Cefepime HCl 1 gm in 100 mls @ 200 mls/hr 05/12/22 18:00 05/13/22 18:36 Cefepime/Ns 1 Gm/100 Ml IV 05/14/22 18:29 Infused Q24H CONNOR Infusion Protocol Lansoprazole 30 mg 04/23/22 10:00 05/14/22 09:25 Lansoprazole 30 Mg Solutab FEEDTUBE 30 mg QDAY CONNOR Administration Lorazepam 0.5 mg 04/25/22 09:59 Lorazepam 0.5 Mg Tab FEEDTUBE QDAY PRN Anxiety Memantine 5 mg 04/25/22 10:00 05/14/22 09:25 Memantine 5 Mg Tab FEEDTUBE 5 mg BID CONNOR Administration Metoclopramide HCl 5 mg 04/19/22 09:55 Metoclopramide 10 Mg/2 Ml Inj IV Q6H PRN Nausea And Vomiting Midodrine 20 mg 04/26/22 14:00 05/14/22 09:25 Midodrine 10 Mg Tab FEEDTUBE 20 mg TID CONNOR Administration Naloxone HCl 0.1 mg 04/19/22 09:55 Naloxone 0.4 Mg/1 Ml Inj IV Q2MIN PRN Res Rate </= 8 or 02 SAT < 92% Polyethylene Glycol 17 gm 05/03/22 10:00 05/14/22 09:33 Polyethylene Glycol 3350 17 Gm Powder FEEDTUBE Not Given QDAY CONNOR Risperidone 0.5 mg 04/25/22 11:00 05/14/22 09:26 Risperidone 1 Mg Tab FEEDTUBE 0.5 mg BID CONNOR Administration Scopolamine 1 each 05/02/22 10:00 05/14/22 09:25 Scopolamine Transdermal Patch 72 Hr TD 1 each Q3D CONNOR Administration Senna 17.2 mg 04/23/22 10:00 05/14/22 09:33 Sennosides 8.6 Mg Tab FEEDTUBE Not Given BID CONNOR Sodium Chloride 10 ml 04/19/22 12:00 05/14/22 09:25 Sodium Chloride 0.9% 10 Ml Flush Syringe IV 10 ml BID CONNOR Administration Sodium Chloride 10 ml 04/19/22 11:19 Sodium Chloride 0.9% 10 Ml Flush Syringe IV PRN PRN LINE FLUSH Valproic Acid 750 mg 04/22/22 22:00 05/14/22 09:25 Valproic Acid 250 Mg/5 Ml Oral Liqd FEEDTUBE 750 mg BID CONNOR Administration
--- NOTE | 2022-05-14 15:32 | Progress Note ---
Assessment and Plan Assessment and plan: This is a 66-year-old female with HTN, GERD, seizure disorder, vascular dementia, ESRD on HD, chronic hypertension, bipolar, schizophrenia, anxiety admitted with acute hypoxic respiratory failure, acute on chronic hypotension, acute on chronic metabolic encephalopathy and SVT Neuro: h/o vascular dementia, schizophrenia, bipolar, anxiety disorder -Continue Seroquel -As needed Ativan -Reorientation as needed -Maintain sleep-wake cycle -As needed analgesia -Continue home memantine, respiradol, valproic acid -CT head showed no acute intracranial abnormalities, no significant interval changes -Psych consulted, appreciate recommendations Cardiac: SVT s/p cardioversion, chronic hypotension, NSTEMI type II -Cardiology consulted, appreciate recommendations -Blood pressure monitoring per protocol -s/p vasopressor support with Levophed -Cortisol 24.4 -s/p Fludrocortisone for 4 doses -Midodrine 20mg TID -Echo 01/31/2022-EF 60 to 65%. Doppler flow pattern suggests impaired LV relaxation. Right ventricle systolic function is normal trace aortic regu rgitation. Trace mitral regurgitation. -Lipitor, Plavix Respiratory: Acute hypoxic respiratory failure -CCM consulted, appreciate recommendations -04/23 Chest ultrasound showed bilateral pleural effusions, right greater than left -Intubated 05/03 with 7.5 oett at 22 at the lips -05/03 bronch at bedside -05/05 therapeutic bronch at the bedside -ABG abg and CXR noted -AM vent settings: AC Rate 14, TV 450, Peep 6, FiO2 30% -See RT notes for titration -Pulmonary hygiene -SPO2 monitor per protocol -CTA chest with contrast shows large right and moderate-sized left pleural eff usions with moderate body wall edema, groundglass pulmonary opacities in the upper lobes likely representing atypical pneumonia, no CT evidence of pulmonary embolism. -Chest US showed right pleural and she received a bedside thoracentesis 05/09 GI: Moderate protein calorie malnutrition, dysphagia s/p PEG -GI consulted -s/p peg 05/04 -24 hours + 1070 mL -PPI -TF -BR: Senokot : ESRD on HD -Nephrology consulted, appreciate recommendations -HD per nephrology (TThSat) -Monitor intake and output -Renally dose medications -Avoid nephrotoxic medications -Epogen 3 times daily -Trend BMP ID: Septic Shock (unable to determine status), MRSA PNA -ID consulted, appreciate recommendations -f/u blood culture -04/19 blood cultures x2 NGTD, bronch wash with MRSA -ABX therapy with vanco and cefepime -Monitor WBC and temperature curve Endo: NAD -Avoid hypoglycemia Heme: Anemia of chronic disease, RIJ thrombus (chronic), leukocytosis -Vascular surgery consulted, appreciate recommendations -no need for heparin gtt per vascular surgery -HIT pending -Trend CBC -Transfuse hemoglobin less than 7 -s/p 4 unit PRBC -Epogen 3 times daily -SCDs to BLE while in bed The high probability of a clinically significant, sudden or life threatening deterioration of the [multiple] system(s) required my full and direct attention, intervention and personal management. The aggregate critical care time was [60] minutes. This time is in addition to time spent performing reported procedures but includes the following: [x] Data Review and interpretation [x] Patient assessment and monitoring of vital signs [x] Documentation [x] Medication orders and management Disposition Plan: icu Total Time Spent with Patient (Minutes): 60 History Interval history: This is a 66-year-old female with HTN, GERD, seizure disorder, vascular dementia, ESRD on HD (TTS), OA, chronic hypotension, bipolar, schizophrenia, anxiety examined mobility with a resident of [facility] alf present to the emergency department on 04/19 with altered mental status and for being combative causing her to miss several days of hemodialysis. On presentation patient was found to be more hypertensive than usual and on room air with oxygen saturations in the 90s and she subsequently went into SVT into the 150s requi ring cardioversion under conscious sedation. Patient was admitted to the hospital service with acute hypoxic respiratory failure, acute on chronic hypotension, acute on chronic metabolic encephalopathy, SVT, hyperkalemia, NSTEMI type II to the ICU with consults to CCM, nephrology cardiology and psych. Hospital Course to Date: 04/20: Patient went into Afib with RVR overnight, now on amiodarone gtt per cardio. Patient remains in AFib with RVR this am, HR in the 120-140s. BP marginal on Levophed gtt, currently not a candidate for BB. Midodrine increased to 15mg TID. 2D Echo pending. On heparin gtt per protocol. No HD today per nephro due to hypotension and tachycardia. 04/21: Converted to SR this am, remains on Amiodarone and heparin. Awaiting cardio final recommendations. Still on Levophed gtt for low BP, given patient history of chronic hypotension, Wean pressor for MAP goal of 60s. Patient is pocketing foods, currently NPO, awaiting speech eval and treat. 04/22: Patient passed speech swallow eval yesterday, however, patient is refusing PO intakes including meds. Will insert DHT for nutrition and meds administration. Patient remains in SR this am, amiodaron gtt transitioned to PO per cardio. Patient remains on heparin and Levophed gtt. Patient has not recei kiara PO midrodrine for 24hrs, resume meds once DHT is inserted. Keep femoral CVC for another 24hrs, anticipating will be able to wean off pressor once patient receive midodrine. Will reassess in the morning. No HD overnight, unable to cannulate AVF, plan to attempt again today per Nephro. Possible IR/Vascular surgery consult if unsuccessful again today. 04/23: Mentation a lot better this am. DHT was inserted, meds resumed and TF initiated. Levophed gtt increased overnight due to worsen hypotension, suspected it is due to sedative agents. Seroquel decreased to 200mg BID and scheduled ativan switched to PRN. Continue midodrine TID and wean off levophed gtt for MAP goal of 60. Patient tolerated HD yesterday, continue iHD per Nephrology. CCM recommendations noted, Chest US ordered for pleural effusion. 04/24: RN instructed to wean Levophed off, goal MAP of 60. Heparin drip stopped due to decreasing hemoglobin. 04/25: ST had cleared the patient for pured diet which will be started today, hem odialysis planned for today, patient was to be anemic and will receive 1 unit PRBC with HD. We will increase midodrine to 20 mg 3 times daily if patient becomes hypotensive during dialysis. Per CCM. Decrease in seroqoul but will increase if needed 04/26: Patient agreeable to PEG, GI consulted for placement. Femoral line removed 04/27: No acute events reported overnight, patient has been cardiac cleared for PEG tube placement. Possible PEG in the a.m. This afternoon attempted to place IJ CVL which was unsuccessful and Dr. Mcguire ultimately placed femoral CVL for the initiation of Levophed. HD scheduled for today. 04/28: Patient initially started on Levophed yesterday and she received a femoral CVL. 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 Vascular surgery was consulted. Patient also noted to be anemic and received 1 unit PRBC today. 04/29: Possible hemodialysis today, patient was able to be weaned off of Levophed today. Hemoglobin responded well to 1 unit PRBC. Awaiting trach/PEG placem ent. Patient will not need to be started on heparin drip per vascular surgery. No acute events reported overnight. 04/30: HD yesterday without removal of fluids, patient needs NT suctioning. Updated son today. 05/01: Patient with increase mucous production and is unable to fully clear her airway, Rhonchi auscultated throughout her lungs this am. SPO2 at 90 to 94% on 3L NC. D/W CCM, patient is high risk for aspiration will placed patient on heated HF at 40L for now instead of Bipap. Nasal bleeding also noted, mostly due to NT suctioning. Refrain from NT suctioning for now due to bleeding, only oral suctioning. PO seroquel held this amP atient is AAO, appropriate, and following commands. Levophed gtt weaned off, patient remains hemodynamically stable. Will discuss Nephro for possible fluid removal tonight or early tomorrow. Very low threshold for intubation. Patient's condition and plan of care, including possible intubation, thoroughly discussed with patient's son-Raymundo Randolph at . Patient's son verbalized understanding of the info provided and agreed with intubation if necessary. 05/02: Remains on HHFL at 40% and 40L, mentation is unchanged. HD at the bedside, plan for possible UF with fluid removal today. Continue O2 supplementation and wean as tolerated, for SPO2 above 92%. Repeat CXR in the am. Patient vital signs remains stable, still off pressors. Plan for possible PEG-tube placement by GI tomorrow, NPO after MN. Possible fistulogram for RIJ thrombus on or sunday per Vascular Surgery. 05/03: Complete white-out of right side from this am CXR, probable mucus plug. S/p intubation and bronch at the bedside by CCM. Patient remains sedated and re quired short duration of Levophed gtt during the procedure. Pressor was wean off, VSS. Plan for CPT and mucomyst Q12hrs. Repeat CXR in the am. PEG-Tube placement postpone for possibly tomorrow if patient remains stable. Possible fistulogram for RIJ thrombus on or Sunday per Vascular Surgery. 05/04: Remains on the vent, easily arousable. High fevers overnight with spike in leukocytosis, now on 2 pressors. CCM d/w ID, recommendations to repeat blood cultures and empiric IV abx- Cefepine and Vanco. low H&H this am, no s/s of any active bleeding, 1units of PRBCs during iHD today. S/p PEG-tube placement at this bedside this am by GI, no complications noted. Resume TF once clear by GI. 05/05: Remains on low vent setting. This am CXR with increase opacities on the right side again today, s/p therapeutic bronch at the bedside today by CCM. Repeat CXR in the am. Remains with low grade fevers and on 2 pressors. Bronchial wash with Staph A. and blood cultures pending. Continue current IV Abx per ID. 05/06: Stable on the vent this am. Only on low dose pressors, MAP above 65. CXR with some improvement, peep dropped to 8 per CCM. Continue CPT and Mucomyst TID. If patient remains stable overnight, possible PSV trial in the am. Fevers and leukocytosis improved. Continue current IV Abx per ID. Continue iHD per Nephro 05/07: Remains stable on the vent, afebrile and off pressors this am VSS. This am CXR reviewed, increased opacities on the right side. Patient remains on low vent settings. Further management per CCM, continue CPT and Mucomyst TID. Bronch wash with MRSA, blood cultures pending. Continue current IV Abx per ID. 05/08: We will replete potassium, CCM would like a CTA chest but evaluate atelectasis/consolidation/effusions. LTAC evaluation 05/09: HD today, CTA chest completed. CPAP yesterday but rested on AC overnight. 05/10: Patient discharge will be delayed till tomorrow due to bed unavailability at LTAC facility, no acute distress overnight. Patient placed on PSV but failed. 05/11: Transferred to LTAC has been delayed. Patient received hemodialysis today. Patient CPAP trial and she fell today. No acute events reported overnight. 05/12: Overnight patient was restarted on Levophed, patient was scheduled for tracheostomy and noted drop in hemoglobin therefore patient was ordered to be transfused for 1 unit. Patient did receive dialysis yesterday. Due to the use of vasopressors surgery was canceled. Patient did have 1 spike in temperature to 101 and given increase in WBC patient was started on IV cefepime for 3 days to complete her 8-day therapy as recommended by infectious disease. 05/13: Patient remains on Levophed. He received PRBC yesterday. Blood pressure continues to be labile. RN to wean as tolerated. CPAP trial today 05/14: Patient received hemodialysis yesterday. She has been weaned off of Levophed. Patient attempted on PSV today. Trach tentatively scheduled for tomorrow. Hospitalist Physical - Constitutional Vitals: Temp Pulse Resp BP Pulse Ox 100 F H 86 14 97/41 100 05/14/22 11:52 05/14/22 15:00 05/14/22 15:00 05/14/22 15:00 05/14/22 15:00 General appearance: Present: no acute distress, other (intubated) - EENT Eyes: Present: PERRL, EOM intact ENT: dentition normal - Neck Neck: Present: normal ROM - Respiratory Respiratory effort: normal Respiratory: bilateral: diminished, rhonchi - Cardiovascular Rhythm: regular Heart Sounds: Present: S1 & S2. Absent: systolic murmur, diastolic murmur - Extremities Extremities: no ischemia Extremity abnormal: edema, pulses diminished Peripheral Pulses: within normal limits - Abdominal General gastrointestinal: soft, non-tender, normal bowel sounds - Integumentary Integumentary: Present: warm, dry - Psychiatric Psychiatric: cooperative - Neurologic Neurologic: CNII-XII intact, no focal deficits - Allied Health Allied health notes reviewed: nursing, RT HEART Score - HEART Score Troponin: Troponin T 0.415 ng/mL (0.00-0.029) H* 04/19/22 04:53 Results - Labs CBC & Chem 7: 05/14/22 05:36 05/13/22 04:00 Labs: Laboratory Last Values WBC 13.4 K/mm3 (4.5-11.0) H 05/14/22 05:36 RBC 2.83 M/mm3 (3.65-5.03) L 05/14/22 05:36 Hgb 8.1 gm/dl (10.1-14.3) L 05/14/22 05:36 Hct 25.1 % (30.3-42.9) L 05/14/22 05:36 MCV 89 fl (79-97) 05/14/22 05:36 MCH 29 pg (28-32) 05/14/22 05:36 MCHC 32 % (30-34) 05/14/22 05:36 RDW 15.1 % (13.2-15.2) 05/14/22 05:36 Plt Count 260 K/mm3 (140-440) 05/14/22 05:36 Lymph % (Auto) 7.8 % (13.4-35.0) L 05/12/22 04:11 [place] % (Auto) 14.2 % (0.0-7.3) H 05/12/22 04:11 Eos % (Auto) 0.5 % (0.0-4.3) 05/12/22 04:11 Baso % (Auto) 0.4 % (0.0-1.8) 05/12/22 04:11 Lymph # (Auto) 1.4 K/mm3 (1.2-5.4) 05/12/22 04:11 [place] # (Auto) 2.5 K/mm3 (0.0-0.8) H 05/12/22 04:11 Eos # (Auto) 0.1 K/mm3 (0.0-0.4) 05/12/22 04:11 Baso # (Auto) 0.1 K/mm3 (0.0-0.1) 05/12/22 04:11 Add Manual Diff Complete 05/05/22 04:20 Total Counted 100 05/05/22 04:20 Seg Neutrophils % 77.1 % (40.0-70.0) H 05/12/22 04:11 Seg Neuts % (Manual) 86.0 % (40.0-70.0) H 05/05/22 04:20 Band Neutrophils % 3.0 % 05/05/22 04:20 Lymphocytes % (Manual) 4.0 % (13.4-35.0) L 05/05/22 04:20 Reactive Lymphs % (Man) 0 % 05/05/22 04:20 Monocytes % (Manual) 6.0 % (0.0-7.3) 05/05/22 04:20 Eosinophils % (Manual) 1.0 % (0.0-4.3) 05/05/22 04:20 Basophils % (Manual) 0 % (0.0-1.8) 05/05/22 04:20 Metamyelocytes % 0 % 05/05/22 04:20 Myelocytes % 0 % 05/05/22 04:20 Promyelocytes % 0 % 05/05/22 04:20 Blast Cells % 0 % 05/05/22 04:20 Nucleated RBC % 1.0 % (0.0-0.9) H 05/05/22 04:20 Seg Neutrophils # 13.9 K/mm3 (1.8-7.7) H 05/12/22 04:11 Seg Neutrophils # Man 11.0 K/mm3 (1.8-7.7) H 05/05/22 04:20 Band Neutrophils # 0.4 K/mm3 05/05/22 04:20 Lymphocytes # (Manual) 0.5 K/mm3 (1.2-5.4) L 05/05/22 04:20 Abs React Lymphs (Man) 0.0 K/mm3 05/05/22 04:20 Monocytes # (Manual) 0.8 K/mm3 (0.0-0.8) 05/05/22 04:20 Eosinophils # (Manual) 0.1 K/mm3 (0.0-0.4) 05/05/22 04:20 Basophils # (Manual) 0.0 K/mm3 (0.0-0.1) 05/05/22 04:20 Metamyelocytes # 0.0 K/mm3 05/05/22 04:20 Myelocytes # 0.0 K/mm3 05/05/22 04:20 Promyelocytes # 0.0 K/mm3 05/05/22 04:20 Blast Cells # 0.0 K/mm3 05/05/22 04:20 WBC Morphology Not Reportable 05/05/22 04:20 Hypersegmented Neuts Not Reportable 05/05/22 04:20 Hyposegmented Neuts Not Reportable 05/05/22 04:20 Hypogranular Neuts Not Reportable 05/05/22 04:20 Smudge Cells Not Reportable 05/05/22 04:20 Toxic Granulation Not Reportable 05/05/22 04:20 Toxic Vacuolation Not Reportable 05/05/22 04:20 Dohle Bodies Not Reportable 05/05/22 04:20 Pelger-Huet Anomaly Not Reportable 05/05/22 04:20 Ubaldo Rods Not Reportable 05/05/22 04:20 Platelet Estimate Consistent w auto 05/05/22 04:20 Clumped Platelets Not Reportable 05/05/22 04:20 Plt Clumps, EDTA Not Reportable 05/05/22 04:20 Large Platelets Not Reportable 05/05/22 04:20 Giant Platelets Not Reportable 05/05/22 04:20 Platelet Satelliting Not Reportable 05/05/22 04:20 Plt Morphology Comment Not Reportable 05/05/22 04:20 RBC Morphology Not Reportable 05/05/22 04:20 Dimorphic RBCs Not Reportable 05/05/22 04:20 Polychromasia Not Reportable 05/05/22 04:20 Hypochromasia 2+ 05/05/22 04:20 Poikilocytosis Not Reportable 05/05/22 04:20 Anisocytosis 1+ 05/05/22 04:20 Microcytosis Not Reportable 05/05/22 04:20 Macrocytosis Not Reportable 05/05/22 04:20 Spherocytes Not Reportable 05/05/22 04:20 Pappenheimer Bodies Not Reportable 05/05/22 04:20 Sickle Cells Not Reportable 05/05/22 04:20 Target Cells Not Reportable 05/05/22 04:20 Tear Drop Cells Not Reportable 05/05/22 04:20 Ovalocytes Not Reportable 05/05/22 04:20 Helmet Cells Not Reportable 05/05/22 04:20 [place] Bodies Not Reportable 05/05/22 04:20 [place] Rings Not Reportable 05/05/22 04:20 Stacey Cells Not Reportable 05/05/22 04:20 Bite Cells Not Reportable 05/05/22 04:20 Crenated Cell Not Reportable 05/05/22 04:20 Elliptocytes Not Reportable 05/05/22 04:20 Acanthocytes (Spur) Not Reportable 05/05/22 04:20 Rouleaux Not Reportable 05/05/22 04:20 Hemoglobin C Crystals Not Reportable 05/05/22 04:20 Schistocytes Not Reportable 05/05/22 04:20 Malaria parasites Not Reportable 05/05/22 04:20 [place]rey Bodies Not Reportable 05/05/22 04:20 Hem Pathologist Commnt No 05/05/22 04:20 PT 15.4 Sec. (12.2-14.9) H 05/12/22 04:11 INR 1.09 (0.87-1.13) 05/12/22 04:11 APTT 39.4 Sec. (24.2-36.6) H 05/03/22 04:24 Heparin Anti-Xa Level < 0.10 U.I./ml (0.3-0.7) L 04/24/22 10:20 ABG pH 7.479 pH Units (7.350-7.450) H 05/14/22 11:15 ABG pCO2 42.1 mm Hg 05/14/22 11:15 ABG pO2 81.2 mm Hg (80.0-90.0) 05/14/22 11:15 ABG HCO3 30.6 mmol/L (20.0-26.0) H 05/14/22 11:15 ABG O2 Saturation 97.0 % (95.0-99.0) 05/14/22 11:15 ABG O2 Content 12.2 (0.0-44) 05/14/22 11:15 ABG Base Excess 6.5 mmol/L (-2.0-3.0) H 05/14/22 11:15 ABG Hemoglobin 9.0 gm/dl (12.0-16.0) L 05/14/22 11:15 ABG Carboxyhemoglobin 1.5 % (0.0-5.0) 05/14/22 11:15 ABG Methemoglobin 0.6 % (0.0-1.5) 05/14/22 11:15 Oxyhemoglobin 95.0 % (95.0-99.0) 05/14/22 11:15 FiO2 30 % 05/14/22 11:15 Sodium 131 mmol/L (137-145) L 05/13/22 04:00 Potassium 4.8 mmol/L (3.6-5.0) 05/13/22 04:00 Chloride 93.2 mmol/L (98-107) L 05/13/22 04:00 Carbon Dioxide 26 mmol/L (22-30) 05/13/22 04:00 Anion Gap 17 mmol/L 05/13/22 04:00 BUN 38 mg/dL (7-17) H 05/13/22 04:00 Creatinine 2.7 mg/dL (0.6-1.2) H 05/13/22 04:00 Estimated GFR 18 ml/min 05/13/22 04:00 BUN/Creatinine Ratio 14 % 05/13/22 04:00 Glucose 145 mg/dL (65-100) H 05/13/22 04:00 POC Glucose 167 mg/dL (70-105) H 05/14/22 11:58 Lactic Acid 1.60 mmol/L (0.7-2.0) 04/19/22 07:14 Calcium 8.8 mg/dL (8.4-10.2) 05/13/22 04:00 Phosphorus 3.00 mg/dL (2.5-4.5) D 05/09/22 04:25 Magnesium 1.80 mg/dL (1.7-2.3) 05/09/22 04:25 Total Bilirubin 0.30 mg/dL (0.1-1.2) 05/12/22 06:00 AST 24 units/L (5-40) 05/12/22 06:00 ALT 7 units/L (7-56) 05/12/22 06:00 Alkaline Phosphatase 332 units/L (35-129) H 05/12/22 06:00 Ammonia 25.0 umol/L (25-60) 04/19/22 04:53 Lactate Dehydrogenase 142 units/L (91-180) 05/09/22 04:25 Troponin T 0.415 ng/mL (0.00-0.029) H* 04/19/22 04:53 Total Protein 4.8 g/dL (6.3-8.2) L 05/12/22 06:00 Albumin 2.0 g/dL (3.9-5) L 05/12/22 06:00 Albumin/Globulin Ratio 0.7 % 05/12/22 06:00 Procalcitonin 42.42 ng/mL (<0.15) 05/05/22 04:20 TSH 1.700 mlU/mL (0.270-4.200) 04/19/22 04:53 Free T4 0.28 ng/dL (0.76-1.46) L 04/19/22 04:53 Total Cortisol 24.4 mcg/dL () 04/27/22 04:45 Fluid Type Pleural 05/09/22 Unknown Fluid Color Yellow 05/09/22 Unknown Fluid Appearance Clear 05/09/22 Unknown Fluid WBC 21 /mm3 05/09/22 Unknown Fluid RBC 12 /mm3 05/09/22 Unknown Fluid Seg Neutrophils 60.0 % 05/09/22 Unknown Fluid Lymphocytes 11.0 % 05/09/22 Unknown Fluid Monocytes 29.0 % 05/09/22 Unknown Random Vancomycin 20.0 ug/mL (0-40.0) 05/11/22 03:56 Coronavirus (PCR) Negative (Negative) 05/03/22 11:30 Hepatitis A IgM Ab Non-reactive (NonReactive) 04/19/22 04:53 Hep Bs Antigen Non-reactive (Negative) 04/19/22 04:53 Hep B Core IgM Ab Non-reactive (NonReactive) 04/19/22 04:53 Hepatitis C Antibody Non-reactive (NonReactive) 04/19/22 04:53 Blood Type A POSITIVE 05/12/22 06:07 Antibody Screen Negative 05/12/22 06:07 Crossmatch See Detail 05/12/22 06:07 Microbiology: Microbiology 05/09/22 Unknown Other (Please Specify:) - Pleura Body Fluid Culture - Final Cleary/IV: Voiding Method Diaper Active Medications - Current Medications Current Medications: Generic Name Dose Route Start Last Admin Trade Name Freq PRN Reason Stop Dose Admin Acetaminophen 650 mg 04/22/22 20:12 05/12/22 23:29 Acetaminophen 325 Mg/10.15 Ml Oral Liqd Unit Dose PO 650 mg Q6H PRN Administration Pain MILD(1-3)/Fever >100.5/DRAKE Albumin Human 25 gm 04/21/22 13:00 04/22/22 16:31 Albumin Human 25% (25 Gm/100 Ml) Inj IV 25 gm BIANCA PRN Administration Hypotension Albuterol 2.5 mg 04/21/22 08:30 04/24/22 16:51 Albuterol 2.5 Mg/3 Ml Nebu IH 2.5 mg Q3HRT PRN Administration Shortness Of Breath Albuterol/Ipratropium 1 ampul 04/21/22 14:00 05/14/22 14:49 Ipratropium/Albuterol Sulfate 3 Ml Ampul.Neb IH 1 ampul TIDRT CONNOR Administration Docusate Sodium 100 mg 05/01/22 22:00 05/14/22 09:33 Docusate Sodium 100 Mg/10 Ml Oral Liqd FEEDTUBE Not Given BID CONNOR Epoetin Lb-epbx 20,000 unit 04/23/22 12:00 05/14/22 01:34 Epoetin Lb-Epbx 20,000 Unit/1 Ml Vial IV 20,000 unit BIANCA PRN Administration HEMODIALYSIS Fentanyl 50 mcg 05/03/22 10:29 05/05/22 12:23 Fentanyl 100 Mcg/2 Ml Inj IV 25 mcg Q10MIN PRN Administration ANALGESIA Sodium Chloride 100 mls @ 999 mls/hr 04/22/22 09:12 Nacl 0.9% IV BIANCA PRN Hypotension Fentanyl Citrate 2,000 mcg in 100 mls @ 2.722 mls/hr 05/03/22 11:00 Fentanyl Drip Premix IV TITR CONNOR Protocol 1 MCG/KG/HR Vasopressin 20 unit/ Sodium 101 mls @ 9.09 mls/hr 05/04/22 00:30 05/06/22 11:21 Chloride IV 0 units/min TITR CONNOR 0 mls/hr Infusion 0.03 UNITS/MIN NORepinephrine/NS 8 MG-250 ML 8 mg in 250 mls @ 3.75 mls/hr 05/11/22 21:23 05/13/22 12:21 Norepinephrine/Ns 8 Mg-250 Ml (Double Conc) IV 0 mcg/min TITRATE CONNOR 0 mls/hr Titration Protocol 2 MCG/MIN Cefepime HCl 1 gm in 100 mls @ 200 mls/hr 05/12/22 18:00 05/13/22 18:36 Cefepime/Ns 1 Gm/100 Ml IV 05/14/22 18:29 Infused Q24H CONNOR Infusion Protocol Lansoprazole 30 mg 04/23/22 10:00 05/14/22 09:25 Lansoprazole 30 Mg Solutab FEEDTUBE 30 mg QDAY CONNOR Administration Lorazepam 0.5 mg 04/25/22 09:59 Lorazepam 0.5 Mg Tab FEEDTUBE QDAY PRN Anxiety Memantine 5 mg 04/25/22 10:00 05/14/22 09:25 Memantine 5 Mg Tab FEEDTUBE 5 mg BID CONNOR Administration Metoclopramide HCl 5 mg 04/19/22 09:55 Metoclopramide 10 Mg/2 Ml Inj IV Q6H PRN Nausea And Vomiting Midodrine 20 mg 04/26/22 14:00 05/14/22 13:21 Midodrine 10 Mg Tab FEEDTUBE 20 mg TID CONNOR Administration Naloxone HCl 0.1 mg 04/19/22 09:55 Naloxone 0.4 Mg/1 Ml Inj IV Q2MIN PRN Res Rate </= 8 or 02 SAT < 92% Polyethylene Glycol 17 gm 05/03/22 10:00 05/14/22 09:33 Polyethylene Glycol 3350 17 Gm Powder FEEDTUBE Not Given QDAY CONNOR Risperidone 0.5 mg 04/25/22 11:00 05/14/22 09:26 Risperidone 1 Mg Tab FEEDTUBE 0.5 mg BID CONNOR Administration Scopolamine 1 each 05/02/22 10:00 05/14/22 09:25 Scopolamine Transdermal Patch 72 Hr TD 1 each Q3D CONNOR Administration Senna 17.2 mg 04/23/22 10:00 05/14/22 09:33 Sennosides 8.6 Mg Tab FEEDTUBE Not Given BID CONNOR Sodium Chloride 10 ml 04/19/22 12:00 05/14/22 09:25 Sodium Chloride 0.9% 10 Ml Flush Syringe IV 10 ml BID CONNOR Administration Sodium Chloride 10 ml 04/19/22 11:19 Sodium Chloride 0.9% 10 Ml Flush Syringe IV PRN PRN LINE FLUSH Valproic Acid 750 mg 04/22/22 22:00 05/14/22 09:25 Valproic Acid 250 Mg/5 Ml Oral Liqd FEEDTUBE 750 mg BID CONNOR Administration Nutrition/Malnutrition Assess - Dietary Evaluation Nutrition/Malnutrition Findings: Nutrition Notes Start: 04/19/22 17:39 Freq: Status: Active Protocol: Document 05/12/22 14:43 NHALL (Rec: 05/12/22 14:47 SHILA [id number]) Nutrition Notes Initial or Follow up Reassessment Current Diagnosis CKD (stage V CKD),Sepsis, Respiratory Failure Other Pertinent Diagnosis Neurogenic dysphagia, metabolic encephalopathy, vascular dementia Current Diet NPO Labs/Tests Na 133 BUN 29 Cr 2.4 Pertinent Medications Reviewed Height 5 ft 2 in Weight 54.43 kg [place] Body Weight (kg) 50.00 BMI 21.9 Weight Status Appropriate Subjective/Other Information Pt NPO for planned procedure today (trach placement), however, pt not hemodynamically stable enough for anesthesia. Trach may be placed on 05/15. Last BM documented on 05/07. Pt remains on vent support. Burn Absent Trauma Absent #1 Nutrition Diagnosis Swallowing difficulty Diagnosis Progress(for reassessment Continues documentation) Is patient on ventilator? Yes Is Patient Ambulatory and/or Out of Bed No REE-([facility] Jeor-confined to bed) [phone] Calculation Used for Recommendations [facility] Additional Notes Pro needs >1.2g/kg: >65g/day Fluid needs 1-1.5L/day Nutrition Intervention Nutrition Support: Resume Nepro at 30ml/hr with 130ml water flush q4h. Kcal 1,296 Protein (gm) 58 Carbohydrates (gm) 116 Fat (gm) 69 Fluid (mL) 523 Fiber (gm) 9 Goal #1 Resume TF to meet nutrient needs Follow-Up By: 05/15/22 Additional Comments F/U: Trach placement, TF re- start, vent status, BM
[2022-05-14] MEDS: CEFEPIME/NS 1 GM/100 ML 1 GM/100 ML BAG IV SCH (18:12)
[2022-05-15 07:49] LABS: Heparin-Induced Platelet Antib Negative (Negative); Unfractionated Heparin Negative (Negative)
--- NOTE | 2022-05-15 08:42 | Progress Note ---
Subjective Principal diagnosis: Neurogenic Dysphagia Interval history: Assessment and plan #End-stage kidney disease: Patient will continue to receive hemodialysis treatment 3 times a week only as tolerated currently on Sunday, there is no emergent indication for renal replacement therapy today Monitor dialysis related labs/monitor for any access issues As of yesterday hemoglobin 8.1 leukocytosis improving 13.4 thousand normal platelet count, May 13 sodium 131 BUN 38 creatinine 2.7, calcium 8.8, random vancomycin earlier 20 point #Access: Needs to be monitored during dialysis Patient has history of difficult vascular access #Hypertension and volume: Ultrafiltration only as tolerated blood pressure borderline mild tachycardia: Parameters currently improving, high doses of midodrine Last cortisol level was 24, received fludrocortisone #Anemia in end-stage kidney disease: minimize lab draws as much as possible unless absolutely indicated, currently on erythropoietin 20,000 units Bone mineral disorder and secondary hyperparathyroidism; Monitor phosphorus binders as necessary goal phosphorus less than 5-1/2 #Diet and nutrition: On tube feeding Dose medication for GFR below 15 #Multiple other course complex and comorbidities including but not limited to altered mental status s/p cardioversion for supraventricular tach, systemic inflammatory response non-ST elevation RI, Time spent in critical care setting 35 minutes If there are any renal related issues in regards to this patient please feel free to reach out without any hesitation at [phone] We'll continue to follow and make recommendation for renal standpoint. Progress note by: Hira Love MD [address] [place] [id number] Tele [phone] [email or web address] Patient was seen today for follow-up of multiple renal related issues Has been critically ill in the ICU setting, even to this hospitalization, previous 24 hours were also reviewed currently on hemodialysis Sunday and Sunday schedule, Past medical history: Reviewed Family history: Reviewed Social history: Reviewed Allergies: Reviewed Physical examination: Vitals: Reviewed HEENT: No pallor or icterus oral mucosa moist Neck: Supple no JVD no thyromegaly Chest: Bilateral clear to auscultation anteriorly Heart: Regular rate and rhythm S1-S2 heard no S3-S4 Abdomen: Soft nontender no voluntary guarding rigidity rebound Extremity: Dry skin less than 1+ peripheral edema Psychiatric: No evidence of agitation and aggression noted Dermatology: No petechial rashes Labs and x-rays: Reviewed from today Objective - Vital Signs Vital signs: Vital Signs - 12hr 05/14/22 05/14/22 05/14/22 20:56 21:00 21:24 Temperature Pulse Rate 97 H 94 H Pulse Rate [ 96 H Anterior Bilateral Throughout] Pulse Rate [ From Monitor] Respiratory 14 17 Rate Respiratory 14 Rate [Anterior Bilateral Throughout] Blood Pressure 122/53 122/53 O2 Sat by Pulse 100 100 Oximetry 05/14/22 05/14/22 05/15/22 22:00 23:00 00:00 Temperature 98.7 F Pulse Rate 89 105 H 105 H Pulse Rate [ Anterior Bilateral Throughout] Pulse Rate [ 92 H From Monitor] Respiratory 14 13 14 Rate Respiratory Rate [Anterior Bilateral Throughout] Blood Pressure 112/65 82/30 119/64 O2 Sat by Pulse 100 100 100 Oximetry 05/15/22 05/15/22 05/15/22 01:00 02:00 03:00 Temperature Pulse Rate 99 H 91 H 98 H Pulse Rate [ Anterior Bilateral Throughout] Pulse Rate [ From Monitor] Respiratory 15 14 15 Rate Respiratory Rate [Anterior Bilateral Throughout] Blood Pressure 103/49 109/56 128/47 O2 Sat by Pulse 100 100 100 Oximetry 05/15/22 05/15/22 05/15/22 03:27 04:00 05:00 Temperature 98 F Pulse Rate 106 H 100 H 101 H Pulse Rate [ Anterior Bilateral Throughout] Pulse Rate [ 101 H From Monitor] Respiratory 12 15 Rate Respiratory Rate [Anterior Bilateral Throughout] Blood Pressure 123/47 119/48 126/55 O2 Sat by Pulse 99 100 100 Oximetry 05/15/22 05/15/22 06:00 07:15 Temperature 99.0 F Pulse Rate 95 H Pulse Rate [ Anterior Bilateral Throughout] Pulse Rate [ From Monitor] Respiratory 14 Rate Respiratory Rate [Anterior Bilateral Throughout] Blood Pressure 126/55 O2 Sat by Pulse 98 Oximetry - Lab 05/14/22 05:36 05/13/22 04:00 Most recent lab results ABG pH 7.479 pH Units (7.350-7.450) H 05/14/22 11:15 ABG pCO2 42.1 mm Hg 05/14/22 11:15 ABG pO2 81.2 mm Hg (80.0-90.0) 05/14/22 11:15 ABG HCO3 30.6 mmol/L (20.0-26.0) H 05/14/22 11:15 ABG O2 Saturation 97.0 % (95.0-99.0) 05/14/22 11:15 Calcium 8.8 mg/dL (8.4-10.2) 05/13/22 04:00 Phosphorus 3.00 mg/dL (2.5-4.5) D 05/09/22 04:25 Magnesium 1.80 mg/dL (1.7-2.3) 05/09/22 04:25 Medications & Allergies - Medications Allergies/Adverse Reactions: Allergies buspirone [From BuSpar] Allergy (Verified 04/18/22 12:22) Unknown Penicillins Allergy (Verified 04/18/22 12:22) Rash corn Adverse Reaction (Verified 04/18/22 12:22) Unknown Home Medications: Home Medications Medication Instructions Recorded Confirmed Last Taken Type Sevelamer Carbonate [Renvela] 0.8 gram PO TIDWM 09/02/20 02/02/22 05/31/21 History HYDROcodone/APAP 5-325 [[place] 1 each PO Q4HR PRN #30 tablet 05/18/21 02/02/22 Unknown Rx 5-325 mg TAB] ALBUTEROL NEB's [Proventil 0.083% 2.5 mg IH Q3HRT PRN #1 nebu 03/03/22 Unknown Rx NEBS] Clopidogrel [Plavix] 75 mg PO QDAY #90 tablet 03/03/[address] [Sarina Serrano] 750 mg PO BID #60 tablet 03/03/22 Unknown Rx LORazepam [Ativan] 1 mg PO DAILY #30 tab 03/03/22 Unknown Rx Memantine Xr [Namenda Xr] 5 mg PO DAILY #30 cap 03/03/22 Unknown Rx Midodrine [Proamatine] 10 mg PO TID #90 tab 03/03/22 Unknown Rx Pantoprazole [Protonix TAB] 40 mg PO DAILY #30 tab 03/03/22 Unknown Rx QUEtiapine [SEROquel] 400 mg PO BID #60 tab 03/03/22 Unknown Rx risperiDONE [RisperDAL] 0.5 mg PO BID #60 tab 03/03/22 Unknown Rx Active Medications: Generic Name Dose Route Start Last Admin Trade Name Freq PRN Reason Stop Dose Admin Acetaminophen 650 mg 04/22/22 20:12 05/12/22 23:29 Acetaminophen 325 Mg/10.15 Ml Oral Liqd Unit Dose PO 650 mg Q6H PRN Administration Pain MILD(1-3)/Fever >100.5/DRAKE Albumin Human 25 gm 04/21/22 13:00 04/22/22 16:31 Albumin Human 25% (25 Gm/100 Ml) Inj IV 25 gm BIANCA PRN Administration Hypotension Albuterol 2.5 mg 04/21/22 08:30 04/24/22 16:51 Albuterol 2.5 Mg/3 Ml Nebu IH 2.5 mg Q3HRT PRN Administration Shortness Of Breath Albuterol/Ipratropium 1 ampul 04/21/22 14:00 05/14/22 20:56 Ipratropium/Albuterol Sulfate 3 Ml Ampul.Neb IH 1 ampul TIDRT CONNOR Administration Docusate Sodium 100 mg 05/01/22 22:00 05/14/22 21:10 Docusate Sodium 100 Mg/10 Ml Oral Liqd FEEDTUBE Not Given BID CONNOR Epoetin Lb-epbx 20,000 unit 04/23/22 12:00 05/14/22 01:34 Epoetin Lb-Epbx 20,000 Unit/1 Ml Vial IV 20,000 unit BIANCA PRN Administration HEMODIALYSIS Fentanyl 50 mcg 05/03/22 10:29 05/05/22 12:23 Fentanyl 100 Mcg/2 Ml Inj IV 25 mcg Q10MIN PRN Administration ANALGESIA Sodium Chloride 100 mls @ 999 mls/hr 04/22/22 09:12 Nacl 0.9% IV BIANCA PRN Hypotension Fentanyl Citrate 2,000 mcg in 100 mls @ 2.722 mls/hr 05/03/22 11:00 Fentanyl Drip Premix IV TITR CONNOR Protocol 1 MCG/KG/HR Vasopressin 20 unit/ Sodium 101 mls @ 9.09 mls/hr 05/04/22 00:30 05/06/22 11:21 Chloride IV 0 units/min TITR CONNOR 0 mls/hr Infusion 0.03 UNITS/MIN NORepinephrine/NS 8 MG-250 ML 8 mg in 250 mls @ 3.75 mls/hr 05/11/22 21:23 05/13/22 12:21 Norepinephrine/Ns 8 Mg-250 Ml (Double Conc) IV 0 mcg/min TITRATE CONNOR 0 mls/hr Titration Protocol 2 MCG/MIN Lansoprazole 30 mg 04/23/22 10:00 05/14/22 09:25 Lansoprazole 30 Mg Solutab FEEDTUBE 30 mg QDAY CONNOR Administration Lorazepam 0.5 mg 04/25/22 09:59 Lorazepam 0.5 Mg Tab FEEDTUBE QDAY PRN Anxiety Memantine 5 mg 04/25/22 10:00 05/14/22 21:10 Memantine 5 Mg Tab FEEDTUBE 5 mg BID CONNOR Administration Metoclopramide HCl 5 mg 04/19/22 09:55 Metoclopramide 10 Mg/2 Ml Inj IV Q6H PRN Nausea And Vomiting Midodrine 20 mg 04/26/22 14:00 05/14/22 19:25 Midodrine 10 Mg Tab FEEDTUBE 20 mg TID CONNOR Administration Naloxone HCl 0.1 mg 04/19/22 09:55 Naloxone 0.4 Mg/1 Ml Inj IV Q2MIN PRN Res Rate </= 8 or 02 SAT < 92% Polyethylene Glycol 17 gm 05/03/22 10:00 05/14/22 09:33 Polyethylene Glycol 3350 17 Gm Powder FEEDTUBE Not Given QDAY CONNOR Risperidone 0.5 mg 04/25/22 11:00 05/14/22 21:10 Risperidone 1 Mg Tab FEEDTUBE 0.5 mg BID CONNOR Administration Scopolamine 1 each 05/02/22 10:00 05/14/22 09:25 Scopolamine Transdermal Patch 72 Hr TD 1 each Q3D CONNOR Administration Senna 17.2 mg 04/23/22 10:00 05/14/22 21:10 Sennosides 8.6 Mg Tab FEEDTUBE Not Given BID CONNOR Sodium Chloride 10 ml 04/19/22 12:00 05/14/22 21:10 Sodium Chloride 0.9% 10 Ml Flush Syringe IV 10 ml BID CONNOR Administration Sodium Chloride 10 ml 04/19/22 11:19 Sodium Chloride 0.9% 10 Ml Flush Syringe IV PRN PRN LINE FLUSH Valproic Acid 750 mg 04/22/22 22:00 05/14/22 21:10 Valproic Acid 250 Mg/5 Ml Oral Liqd FEEDTUBE 750 mg BID CONNOR Administration
[2022-05-15] MEDS: IPRATROPIUM/ALBUTEROL SULFATE 3 ML AMPUL.NEB IH SCH ×3 (08:58→20:35)
[2022-05-15] MEDS: MIDODRINE 10 MG TAB FEEDTUBE SCH ×3 (10:10→21:30)
[2022-05-15] MEDS: VALPROIC ACID 250 MG/5 ML ORAL LIQD FEEDTUBE SCH ×2 (10:10→21:27)
[2022-05-15] MEDS: LANSOPRAZOLE 30 MG SOLUTAB FEEDTUBE SCH (10:10)
[2022-05-15] MEDS: POLYETHYLENE GLYCOL 3350 17 GM POWDER FEEDTUBE SCH (10:10)
[2022-05-15] MEDS: risperiDONE 1 MG TAB FEEDTUBE SCH ×2 (10:10→21:27)
[2022-05-15] MEDS: SENNOSIDES 8.6 MG TAB FEEDTUBE SCH ×2 (10:11→21:26)
[2022-05-15] MEDS: DOCUSATE SODIUM 100 MG/10 ML ORAL LIQD FEEDTUBE SCH ×2 (10:11→21:27)
[2022-05-15] MEDS: MEMANTINE 5 MG TAB FEEDTUBE SCH ×2 (10:14→21:26)
--- NOTE | 2022-05-15 11:12 | Progress Note ---
Assessment and Plan Cultures: 04/19/2022 blood culture: No growth 05/03/2022 respiratory culture: MRSA 05/04/2022 blood culture: 1 out of 4 bottles with coagulase-negative staph 05/09/2022 pleural fluid: No growth A/P: 66-year-old female with hypertension, GERD, seizure disorder, ESRD on HD, bipolar disorder, schizophrenia, anxiety was admitted on 04/19/2022 with altered mental status: #Septic shock: Resolved, off pressors #Bilateral pneumonia: Secondary to MRSA, completed antibiotics. #Coagulase-negative staph bacteremia: 1 out of 4 bottles positive on 05/04/2022, likely contaminant. Anyways got vancomycin for MRSA pneumonia. #ESRD on HD: Renally adjust antibiotics. #Acute hypoxic respiratory failure: On mechanical ventilation. #Pleural effusion: S/p thoracentesis on 05/09/2022, culture with no growth #SVT s/p cardioversion Recs: -Completed antibiotics yesterday, monitor for now -Follow-up WBC -Awaiting possible tracheostomy Gloria Cardenas MD, FACP, [facility] O: [phone] F: [phone] C: [phone] Subjective Date of service: 05/15/22 Principal diagnosis: Neurogenic Dysphagia Interval history: Afebrile. On the vent. Objective - Exam Narrative Exam: Physical Exam: Constitutional: sedated, intubated, on the vent Head, Ears, Nose: Normocephalic, atraumatic. External ears, nose normal Eyes: Conjunctivae/corneas clear. No icterus. No ptosis. Neck: intubated Oral: intubated Cardiovascular: S1, S2 + Respiratory: AE fair bilaterally and equal GI: Soft, bowel sounds +, PEG + Musculoskeletal: Edema + Skin: No rash or abscess Hem/Lymphatic: No palpable cervical or supraclavicular nodes. No lymphangitis Psych: no agitation Neurological: sedated, intubated, on the vent, exam limited - Constitutional Vitals: Vital Signs Temp Pulse Resp BP Pulse Ox 99.0 F 84 13 113/50 98 05/15/22 07:15 05/15/22 09:00 05/15/22 09:00 05/15/22 09:00 05/15/22 09:00 Temperature -Last 24 Hours Temperature 99.0 F Temperature 98 F Temperature 98.7 F Temperature 99.2 F Temperature 97.7 F Temperature 100 F - Labs CBC & Chem 7: 05/14/22 05:36 05/13/22 04:00 Labs: Abnormal lab results 05/14/22 05/14/22 05/14/22 Range/Units 11:15 11:58 18:04 ABG pH 7.479 H (7.350-7.450) pH Units ABG HCO3 30.6 H (20.0-26.0) mmol/L ABG Base Excess 6.5 H (-2.0-3.0) mmol/L ABG Hemoglobin 9.0 L (12.0-16.0) gm/dl POC Glucose 167 H 134 H (70-105) mg/dL 05/15/22 Range/Units 00:28 ABG pH (7.350-7.450) pH Units ABG HCO3 (20.0-26.0) mmol/L ABG Base Excess (-2.0-3.0) mmol/L ABG Hemoglobin (12.0-16.0) gm/dl POC Glucose 135 H (70-105) mg/dL
[2022-05-15] MEDS ORDERED: ROCURONIUM 50 MG/5 ML INJ IV ONE (11:20)
[2022-05-15] MEDS ORDERED: fentaNYL 100 MCG/2 ML INJ ONE (11:21)
--- NOTE | 2022-05-15 11:35 | Event Note ---
Date: 05/15/22 Pt chart reviewed. Off pressors. Labs and imaging reviewed. Patient on minimal vent settings. Did not pass wean trials over weekend. TF have been held since MO last night for trach today. I updated patient's son.
--- NOTE | 2022-05-15 11:37 | Progress Note ---
Assessment and Plan Acute hypoxemic respiratory failure on MVS Atelectasis with mediastinal shift s/p bronch Acute on Chronic Hypotension- possibly secondary to sepsis Acute on Chronic Metabolic Encephalopathy Bipolar disorder Schizophrenia, ESRD on hemodialysis Anemia of chronic disease, Type 2 NSTEMI GERD Subclinical Hypothyroidism Moderate protein caloric malnutrition Inconsistently tolerating PSV, failed today Plan for tracheostomy today VAP bundle addressed, Continue with HD, optimize UF -Titrate supplemental oxygen to keep SpO2 90-92% -CXR, ABG as clinically indicated - Aspiration precautions, HOB >40 - continue bronchodilators with pulmonary hygiene per RT - wean per pulmonary driven protocols otherwise - enteral nutrition at goal rate as tolerated - femoral CVL - Albumin 25 gms of 25% solution prn with dialysis - continue HD/UF per nephrology prescription for toxin and volume clearance - continue accuchecks with glycemic control per SSI (While critically ill target blood glucose of 140-180 mg/dL; avoid hypoglycemia) - avoid nephrotoxins, renally dose all medications - continue to avoid benzodiazepines, reduce the possibility of delirium - prn analgesia per CPOT score - Maintenance of sleep-wake cycle, avoid delirium - Stress ulcer (Lansoprazole) -VTE prophylaxis - mobility protocol, off loading and frequent turning per facility protocol to prevent pressure ulcers - Monitor hemodynamics closely - continue other care per attending / other consultants CONDITION: CRITICAL PROGNOSIS: GUARDED CODE STATUS: FULL CODE The high probability of a clinically significant, sudden or life-threatening deterioration of the [respiratory, cardiovascular, renal & neurologic] system(s) required my full and direct attention, intervention and personal management. The aggregate critical care time was [35] minutes without overlap. Time includes spent on; [x] Data Review and interpretation [x] Patient assessment and monitoring of vital signs [x] Documentation [x] Medication orders and management Subjective Date of service: 05/15/22 Principal diagnosis: Neurogenic Dysphagia Interval history: Seen and examined at bedside; 24hour events reviewed; nursing and respiratory care staff consulted; no adverse overnight events reported to me; resting in bed;off vasopressors; No fevers, no vomiting, no diarrhea Had required Levophed briefly yesterday, a left femoral CVL was placed Remains on MVS, orally intubated. Failed PSV trials- secondary to tachypnea and tachycardia. Awaiting trach placement Objective Vital Signs - 12hr 05/15/22 05/15/22 05/15/22 00:00 01:00 02:00 Temperature 98.7 F Pulse Rate 105 H 99 H 91 H Pulse Rate [ Anterior Bilateral Throughout] Pulse Rate [ 92 H From Monitor] Respiratory 14 15 14 Rate Respiratory Rate [Anterior Bilateral Throughout] Blood Pressure 119/64 103/49 109/56 O2 Sat by Pulse 100 100 100 Oximetry 05/15/22 05/15/22 05/15/22 03:00 03:27 04:00 Temperature 98 F Pulse Rate 98 H 106 H 100 H Pulse Rate [ Anterior Bilateral Throughout] Pulse Rate [ 101 H From Monitor] Respiratory 15 12 Rate Respiratory Rate [Anterior Bilateral Throughout] Blood Pressure 128/47 123/47 119/48 O2 Sat by Pulse 100 99 100 Oximetry 05/15/22 05/15/22 05/15/22 05:00 06:00 07:00 Temperature Pulse Rate 101 H 95 H 88 Pulse Rate [ Anterior Bilateral Throughout] Pulse Rate [ From Monitor] Respiratory 15 14 14 Rate Respiratory Rate [Anterior Bilateral Throughout] Blood Pressure 126/55 126/55 89/50 O2 Sat by Pulse 100 98 100 Oximetry 05/15/22 05/15/22 05/15/22 07:15 08:00 08:58 Temperature 99.0 F Pulse Rate 94 H Pulse Rate [ 85 Anterior Bilateral Throughout] Pulse Rate [ From Monitor] Respiratory 14 Rate Respiratory 14 Rate [Anterior Bilateral Throughout] Blood Pressure 89/50 O2 Sat by Pulse 99 Oximetry 05/15/22 05/15/22 05/15/22 09:00 10:00 11:00 Temperature Pulse Rate 95 H 87 87 Pulse Rate [ Anterior Bilateral Throughout] Pulse Rate [ From Monitor] Respiratory 13 14 14 Rate Respiratory Rate [Anterior Bilateral Throughout] Blood Pressure 113/50 99/34 73/28 O2 Sat by Pulse 98 99 100 Oximetry Constitutional: no acute distress, asleep, other ( Resting assist control mechanical ventilation.) Eyes: non-icteric ENT: oropharynx moist, oropharyngeal exudate pre (clear frothy) Neck: supple, no lymphadenopathy, no JVD Effort: mildly labored Ascultation: Bilateral: clear, diminished breath sounds, rales, rhonchi, other (referred upper airway sounds) Percussion: Bilateral: not dull Cardiovascular: regular rate and rhythm, other (S1,S2) Gastrointestinal: normoactive bowel sounds, soft, non-tender, non-distended, other (PEG) Integumentary: normal Extremities: no cyanosis, pulses normal, no ischemia or petechiae, edema (bilateral upper extremities) Neurologic: non-focal exam (grossly), pupils equal and round, other (sedated resting on mechanical ventilation.) Psychiatric: other (Sedated, sleeping. Not responding to verbal stimuli.) CBC and BMP: 05/14/22 05:36 05/15/22 11:13 ABG, PT/INR, D-dimer: ABG ABG pH 7.479 pH Units (7.350-7.450) H 05/14/22 11:15 ABG pCO2 42.1 mm Hg 05/14/22 11:15 ABG pO2 81.2 mm Hg (80.0-90.0) 05/14/22 11:15 ABG O2 Saturation 97.0 % (95.0-99.0) 05/14/22 11:15 PT/INR, D-dimer PT 15.4 Sec. (12.2-14.9) H 05/12/22 04:11 INR 1.09 (0.87-1.13) 05/12/22 04:11 Abnormal lab findings: Abnormal Labs 04/19/22 04/19/22 04/19/22 04:53 04:53 04:53 WBC RBC 3.06 L Hgb 8.6 L Hct 28.0 L RDW 16.3 H Plt Count Lymph % (Auto) [place] % (Auto) 11.3 H Lymph # (Auto) [place] # (Auto) Seg Neutrophils % Seg Neuts % (Manual) Lymphocytes % (Manual) Nucleated RBC % Seg Neutrophils # Seg Neutrophils # Man Lymphocytes # (Manual) PT INR APTT Heparin Anti-Xa Level ABG pH ABG pO2 ABG HCO3 ABG Base Excess ABG Hemoglobin Oxyhemoglobin Sodium Potassium 5.1 H Chloride Carbon Dioxide 21 L BUN 94 H Creatinine 6.3 H Glucose POC Glucose Phosphorus Magnesium Alkaline Phosphatase Troponin T 0.415 H* Total Protein Albumin 2.7 L Free T4 0.28 L Crossmatch 04/19/22 04/19/22 04/20/22 19:40 19:40 05:30 WBC 4.1 L RBC 2.97 L Hgb 8.5 L 8.2 L Hct 27.8 L 27.1 L RDW 17.0 H Plt Count Lymph % (Auto) [place] % (Auto) 15.2 H Lymph # (Auto) 1.1 L [place] # (Auto) Seg Neutrophils % Seg Neuts % (Manual) Lymphocytes % (Manual) Nucleated RBC % Seg Neutrophils # Seg Neutrophils # Man Lymphocytes # (Manual) PT 17.9 H INR 1.28 H APTT 199.1 H* Heparin Anti-Xa Level ABG pH ABG pO2 ABG HCO3 ABG Base Excess ABG Hemoglobin Oxyhemoglobin Sodium Potassium Chloride Carbon Dioxide BUN Creatinine Glucose POC Glucose Phosphorus Magnesium Alkaline Phosphatase Troponin T Total Protein Albumin Free T4 Crossmatch 04/20/22 04/20/22 04/21/22 05:30 18:23 00:29 WBC RBC Hgb Hct RDW Plt Count Lymph % (Auto) [place] % (Auto) Lymph # (Auto) [place] # (Auto) Seg Neutrophils % Seg Neuts % (Manual) Lymphocytes % (Manual) Nucleated RBC % Seg Neutrophils # Seg Neutrophils # Man Lymphocytes # (Manual) PT INR APTT Heparin Anti-Xa Level 0.17 L ABG pH ABG pO2 ABG HCO3 ABG Base Excess ABG Hemoglobin Oxyhemoglobin Sodium Potassium Chloride Carbon Dioxide 21 L BUN 95 H Creatinine 6.6 H Glucose 139 H POC Glucose Phosphorus Magnesium 2.60 H Alkaline Phosphatase Troponin T Total Protein Albumin 2.4 L Free T4 Crossmatch 04/21/22 04/21/22 04/22/22 04:00 04:00 03:45 WBC RBC 2.74 L Hgb 7.7 L Hct 24.7 L RDW 16.6 H Plt Count Lymph % (Auto) [place] % (Auto) Lymph # (Auto) [place] # (Auto) Seg Neutrophils % Seg Neuts % (Manual) Lymphocytes % (Manual) Nucleated RBC % Seg Neutrophils # Seg Neutrophils # Man Lymphocytes # (Manual) PT INR APTT Heparin Anti-Xa Level < 0.10 L ABG pH ABG pO2 ABG HCO3 ABG Base Excess ABG Hemoglobin Oxyhemoglobin Sodium 133 L Potassium Chloride Carbon Dioxide 20 L BUN 89 H Creatinine 6.6 H Glucose 131 H POC Glucose Phosphorus 6.40 H Magnesium 2.50 H Alkaline Phosphatase Troponin T Total Protein Albumin Free T4 Crossmatch 04/22/22 04/22/22 04/22/22 03:45 12:13 14:30 WBC RBC Hgb Hct RDW Plt Count Lymph % (Auto) [place] % (Auto) Lymph # (Auto) [place] # (Auto) Seg Neutrophils % Seg Neuts % (Manual) Lymphocytes % (Manual) Nucleated RBC % Seg Neutrophils # Seg Neutrophils # Man Lymphocytes # (Manual) PT INR APTT Heparin Anti-Xa Level 0.11 L 0.11 L ABG pH ABG pO2 ABG HCO3 ABG Base Excess ABG Hemoglobin Oxyhemoglobin Sodium 136 L Potassium Chloride Carbon Dioxide 18 L BUN 90 H Creatinine 6.3 H Glucose 121 H POC Glucose Phosphorus 6.50 H Magnesium Alkaline Phosphatase Troponin T Total Protein Albumin Free T4 Crossmatch 04/22/22 04/23/22 04/23/22 23:08 02:17 04:10 WBC RBC Hgb 7.3 L Hct 23.3 L RDW Plt Count Lymph % (Auto) [place] % (Auto) Lymph # (Auto) [place] # (Auto) Seg Neutrophils % Seg Neuts % (Manual) Lymphocytes % (Manual) Nucleated RBC % Seg Neutrophils # Seg Neutrophils # Man Lymphocytes # (Manual) PT INR APTT Heparin Anti-Xa Level 0.14 L ABG pH ABG pO2 ABG HCO3 ABG Base Excess ABG Hemoglobin Oxyhemoglobin Sodium Potassium Chloride Carbon Dioxide BUN Creatinine Glucose POC Glucose 153 H Phosphorus Magnesium Alkaline Phosphatase Troponin T Total Protein Albumin Free T4 Crossmatch 04/23/22 04/23/22 04/23/22 04:10 06:09 23:22 WBC RBC Hgb Hct RDW Plt Count Lymph % (Auto) [place] % (Auto) Lymph # (Auto) [place] # (Auto) Seg Neutrophils % Seg Neuts % (Manual) Lymphocytes % (Manual) Nucleated RBC % Seg Neutrophils # Seg Neutrophils # Man Lymphocytes # (Manual) PT INR APTT Heparin Anti-Xa Level ABG pH ABG pO2 ABG HCO3 ABG Base Excess ABG Hemoglobin Oxyhemoglobin Sodium Potassium Chloride Carbon Dioxide BUN 36 H Creatinine 3.4 H Glucose 131 H POC Glucose 141 H 114 H Phosphorus Magnesium Alkaline Phosphatase Troponin T Total Protein Albumin Free T4 Crossmatch 04/24/22 04/24/22 04/24/22 02:10 04:00 04:00 WBC RBC 2.48 L Hgb 7.1 L Hct 22.6 L RDW 16.9 H Plt Count Lymph % (Auto) [place] % (Auto) Lymph # (Auto) [place] # (Auto) Seg Neutrophils % Seg Neuts % (Manual) Lymphocytes % (Manual) Nucleated RBC % Seg Neutrophils # Seg Neutrophils # Man Lymphocytes # (Manual) PT INR APTT Heparin Anti-Xa Level 0.12 L ABG pH ABG pO2 ABG HCO3 ABG Base Excess ABG Hemoglobin Oxyhemoglobin Sodium 134 L Potassium Chloride Carbon Dioxide BUN 42 H Creatinine 3.9 H Glucose 141 H POC Glucose Phosphorus Magnesium Alkaline Phosphatase Troponin T Total Protein Albumin Free T4 Crossmatch 04/24/22 04/24/22 04/24/22 05:03 10:20 11:24 WBC RBC Hgb Hct RDW Plt Count Lymph % (Auto) [place] % (Auto) Lymph # (Auto) [place] # (Auto) Seg Neutrophils % Seg Neuts % (Manual) Lymphocytes % (Manual) Nucleated RBC % Seg Neutrophils # Seg Neutrophils # Man Lymphocytes # (Manual) PT INR APTT Heparin Anti-Xa Level < 0.10 L ABG pH ABG pO2 ABG HCO3 ABG Base Excess ABG Hemoglobin Oxyhemoglobin Sodium Potassium Chloride Carbon Dioxide BUN Creatinine Glucose POC Glucose 142 H 144 H Phosphorus Magnesium Alkaline Phosphatase Troponin T Total Protein Albumin Free T4 Crossmatch 04/25/22 04/25/22 04/25/22 00:15 04:11 04:11 WBC 4.4 L RBC 2.38 L Hgb 6.7 L Hct 21.7 L RDW 17.2 H Plt Count Lymph % (Auto) [place] % (Auto) Lymph # (Auto) [place] # (Auto) Seg Neutrophils % Seg Neuts % (Manual) Lymphocytes % (Manual) Nucleated RBC % Seg Neutrophils # Seg Neutrophils # Man Lymphocytes # (Manual) PT INR APTT Heparin Anti-Xa Level ABG pH ABG pO2 ABG HCO3 ABG Base Excess ABG Hemoglobin Oxyhemoglobin Sodium 134 L Potassium Chloride 97.1 L Carbon Dioxide BUN 47 H Creatinine 4.3 H Glucose 106 H POC Glucose 136 H Phosphorus Magnesium Alkaline Phosphatase Troponin T Total Protein Albumin Free T4 Crossmatch 04/25/22 04/25/22 04/25/22 06:01 15:30 22:44 WBC RBC Hgb 8.8 L Hct 28.1 L D RDW Plt Count Lymph % (Auto) [place] % (Auto) Lymph # (Auto) [place] # (Auto) Seg Neutrophils % Seg Neuts % (Manual) Lymphocytes % (Manual) Nucleated RBC % Seg Neutrophils # Seg Neutrophils # Man Lymphocytes # (Manual) PT INR APTT Heparin Anti-Xa Level ABG pH ABG pO2 ABG HCO3 ABG Base Excess ABG Hemoglobin Oxyhemoglobin Sodium Potassium Chloride Carbon Dioxide BUN Creatinine Glucose POC Glucose 137 H Phosphorus Magnesium Alkaline Phosphatase Troponin T Total Protein Albumin Free T4 Crossmatch See Detail 04/26/22 04/27/22 04/27/22 04:20 04:45 04:45 WBC RBC 2.81 L 3.13 L Hgb 8.0 L 9.0 L Hct 25.4 L 29.1 L RDW 16.2 H 17.4 H Plt Count Lymph % (Auto) [place] % (Auto) Lymph # (Auto) [place] # (Auto) Seg Neutrophils % Seg Neuts % (Manual) Lymphocytes % (Manual) Nucleated RBC % Seg Neutrophils # Seg Neutrophils # Man Lymphocytes # (Manual) PT INR APTT Heparin Anti-Xa Level ABG pH ABG pO2 ABG HCO3 ABG Base Excess ABG Hemoglobin Oxyhemoglobin Sodium 131 L Potassium Chloride 93.5 L Carbon Dioxide BUN 44 H Creatinine 3.9 H Glucose 135 H POC Glucose Phosphorus Magnesium Alkaline Phosphatase Troponin T Total Protein Albumin Free T4 Crossmatch 04/27/22 04/28/22 04/28/22 23:38 05:26 07:54 WBC 11.1 H RBC 2.40 L Hgb 6.9 L Hct 22.1 L D RDW 17.2 H Plt Count Lymph % (Auto) [place] % (Auto) Lymph # (Auto) [place] # (Auto) Seg Neutrophils % Seg Neuts % (Manual) Lymphocytes % (Manual) Nucleated RBC % Seg Neutrophils # Seg Neutrophils # Man Lymphocytes # (Manual) PT INR APTT Heparin Anti-Xa Level ABG pH ABG pO2 ABG HCO3 ABG Base Excess ABG Hemoglobin Oxyhemoglobin Sodium Potassium Chloride Carbon Dioxide BUN Creatinine Glucose POC Glucose 229 H 169 H Phosphorus Magnesium Alkaline Phosphatase Troponin T Total Protein Albumin Free T4 Crossmatch 04/28/22 04/28/22 04/29/22 12:31 17:54 00:49 WBC RBC Hgb Hct RDW Plt Count Lymph % (Auto) [place] % (Auto) Lymph # (Auto) [place] # (Auto) Seg Neutrophils % Seg Neuts % (Manual) Lymphocytes % (Manual) Nucleated RBC % Seg Neutrophils # Seg Neutrophils # Man Lymphocytes # (Manual) PT INR APTT Heparin Anti-Xa Level ABG pH ABG pO2 ABG HCO3 ABG Base Excess ABG Hemoglobin Oxyhemoglobin Sodium Potassium Chloride Carbon Dioxide BUN Creatinine Glucose POC Glucose 132 H 138 H 189 H Phosphorus Magnesium Alkaline Phosphatase Troponin T Total Protein Albumin Free T4 Crossmatch 04/29/22 04/29/22 04/29/22 06:42 10:54 10:54 WBC 11.8 H RBC 2.93 L Hgb 8.6 L Hct 26.2 L RDW 16.8 H Plt Count Lymph % (Auto) [place] % (Auto) Lymph # (Auto) [place] # (Auto) Seg Neutrophils % Seg Neuts % (Manual) Lymphocytes % (Manual) Nucleated RBC % Seg Neutrophils # Seg Neutrophils # Man Lymphocytes # (Manual) PT INR APTT Heparin Anti-Xa Level ABG pH ABG pO2 ABG HCO3 ABG Base Excess ABG Hemoglobin Oxyhemoglobin Sodium 129 L Potassium Chloride 91.5 L Carbon Dioxide BUN 46 H Creatinine 3.1 H Glucose 180 H POC Glucose 196 H Phosphorus Magnesium Alkaline Phosphatase Troponin T Total Protein Albumin Free T4 Crossmatch 04/29/22 04/29/22 04/30/22 12:03 23:32 05:57 WBC RBC Hgb Hct RDW Plt Count Lymph % (Auto) [place] % (Auto) Lymph # (Auto) [place] # (Auto) Seg Neutrophils % Seg Neuts % (Manual) Lymphocytes % (Manual) Nucleated RBC % Seg Neutrophils # Seg Neutrophils # Man Lymphocytes # (Manual) PT INR APTT Heparin Anti-Xa Level ABG pH ABG pO2 ABG HCO3 ABG Base Excess ABG Hemoglobin Oxyhemoglobin Sodium Potassium Chloride Carbon Dioxide BUN Creatinine Glucose POC Glucose 169 H 170 H 151 H Phosphorus Magnesium Alkaline Phosphatase Troponin T Total Protein Albumin Free T4 Crossmatch 04/30/22 04/30/22 04/30/22 11:28 16:39 23:22 WBC RBC Hgb Hct RDW Plt Count Lymph % (Auto) [place] % (Auto) Lymph # (Auto) [place] # (Auto) Seg Neutrophils % Seg Neuts % (Manual) Lymphocytes % (Manual) Nucleated RBC % Seg Neutrophils # Seg Neutrophils # Man Lymphocytes # (Manual) PT INR APTT Heparin Anti-Xa Level ABG pH ABG pO2 ABG HCO3 ABG Base Excess ABG Hemoglobin Oxyhemoglobin Sodium Potassium Chloride Carbon Dioxide BUN Creatinine Glucose POC Glucose 159 H 147 H 170 H Phosphorus Magnesium Alkaline Phosphatase Troponin T Total Protein Albumin Free T4 Crossmatch 05/01/22 05/01/22 05/01/22 04:00 05:34 15:23 WBC RBC 2.92 L Hgb 8.4 L Hct 26.7 L RDW 16.6 H Plt Count Lymph % (Auto) [place] % (Auto) Lymph # (Auto) [place] # (Auto) Seg Neutrophils % Seg Neuts % (Manual) Lymphocytes % (Manual) Nucleated RBC % Seg Neutrophils # Seg Neutrophils # Man Lymphocytes # (Manual) PT INR APTT Heparin Anti-Xa Level ABG pH ABG pO2 74.2 L ABG HCO3 27.8 H ABG Base Excess ABG Hemoglobin 8.7 L Oxyhemoglobin 94.5 L Sodium Potassium Chloride Carbon Dioxide BUN Creatinine Glucose POC Glucose 140 H Phosphorus Magnesium Alkaline Phosphatase Troponin T Total Protein Albumin Free T4 Crossmatch 05/02/22 05/02/22 05/02/22 05:54 05:54 05:54 WBC RBC 2.85 L Hgb 8.3 L Hct 25.9 L RDW 16.5 H Plt Count Lymph % (Auto) [place] % (Auto) Lymph # (Auto) [place] # (Auto) Seg Neutrophils % Seg Neuts % (Manual) Lymphocytes % (Manual) Nucleated RBC % Seg Neutrophils # Seg Neutrophils # Man Lymphocytes # (Manual) PT INR APTT Heparin Anti-Xa Level ABG pH ABG pO2 ABG HCO3 ABG Base Excess ABG Hemoglobin Oxyhemoglobin Sodium 130 L 128 L Potassium Chloride 90.9 L 90.0 L Carbon Dioxide BUN 49 H 49 H Creatinine 3.7 H 3.8 H Glucose 191 H 184 H POC Glucose Phosphorus Magnesium Alkaline Phosphatase Troponin T Total Protein Albumin Free T4 Crossmatch 05/02/22 05/03/22 05/03/22 14:15 04:24 04:24 WBC RBC 2.71 L Hgb 7.8 L Hct 24.8 L RDW 16.6 H Plt Count Lymph % (Auto) [place] % (Auto) Lymph # (Auto) [place] # (Auto) Seg Neutrophils % Seg Neuts % (Manual) Lymphocytes % (Manual) Nucleated RBC % Seg Neutrophils # Seg Neutrophils # Man Lymphocytes # (Manual) PT INR APTT 39.4 H Heparin Anti-Xa Level ABG pH ABG pO2 ABG HCO3 29.1 H ABG Base Excess 4.3 H ABG Hemoglobin 8.4 L Oxyhemoglobin 94.8 L Sodium Potassium Chloride Carbon Dioxide BUN Creatinine Glucose POC Glucose Phosphorus Magnesium Alkaline Phosphatase Troponin T Total Protein Albumin Free T4 Crossmatch 08/17/22 08/17/22 08/17/22 04:24 15:17 17:30 WBC RBC Hgb Hct RDW Plt Count Lymph % (Auto) [place] % (Auto) Lymph # (Auto) [place] # (Auto) Seg Neutrophils % Seg Neuts % (Manual) Lymphocytes % (Manual) Nucleated RBC % Seg Neutrophils # Seg Neutrophils # Man Lymphocytes # (Manual) PT INR APTT Heparin Anti-Xa Level ABG pH 7.577 H ABG pO2 140.4 H ABG HCO3 26.4 H ABG Base Excess 4.0 H ABG Hemoglobin 5.4 L Oxyhemoglobin Sodium 132 L Potassium Chloride 93.0 L Carbon Dioxide BUN 31 H Creatinine 2.8 H Glucose 119 H POC Glucose 60 L Phosphorus 2.10 L Magnesium Alkaline Phosphatase Troponin T Total Protein Albumin Free T4 Crossmatch 05/03/22 05/04/22 05/04/22 23:33 04:26 04:26 WBC 16.0 H RBC 2.39 L Hgb 6.9 L Hct 21.4 L RDW 15.8 H Plt Count Lymph % (Auto) [place] % (Auto) Lymph # (Auto) [place] # (Auto) Seg Neutrophils % Seg Neuts % (Manual) Lymphocytes % (Manual) Nucleated RBC % Seg Neutrophils # Seg Neutrophils # Man Lymphocytes # (Manual) PT INR APTT Heparin Anti-Xa Level ABG pH ABG pO2 ABG HCO3 ABG Base Excess ABG Hemoglobin Oxyhemoglobin Sodium 133 L Potassium Chloride 94.8 L Carbon Dioxide BUN 34 H Creatinine 3.5 H Glucose 175 H POC Glucose 106 H Phosphorus Magnesium Alkaline Phosphatase Troponin T Total Protein Albumin Free T4 Crossmatch 05/04/22 05/04/22 05/04/22 04:26 05:30 05:40 WBC RBC Hgb Hct RDW Plt Count Lymph % (Auto) [place] % (Auto) Lymph # (Auto) [place] # (Auto) Seg Neutrophils % Seg Neuts % (Manual) Lymphocytes % (Manual) Nucleated RBC % Seg Neutrophils # Seg Neutrophils # Man Lymphocytes # (Manual) PT 17.6 H INR 1.29 H APTT Heparin Anti-Xa Level ABG pH 7.547 H ABG pO2 141.7 H ABG HCO3 27.2 H ABG Base Excess 5.3 H ABG Hemoglobin 6.9 L Oxyhemoglobin Sodium Potassium Chloride Carbon Dioxide BUN Creatinine Glucose POC Glucose Phosphorus Magnesium Alkaline Phosphatase Troponin T Total Protein Albumin Free T4 Crossmatch See Detail 0805/04/22 05/04/22 05:41 12:55 18:10 WBC RBC Hgb Hct RDW Plt Count Lymph % (Auto) [place] % (Auto) Lymph # (Auto) [place] # (Auto) Seg Neutrophils % Seg Neuts % (Manual) Lymphocytes % (Manual) Nucleated RBC % Seg Neutrophils # Seg Neutrophils # Man Lymphocytes # (Manual) PT INR APTT Heparin Anti-Xa Level ABG pH ABG pO2 ABG HCO3 ABG Base Excess ABG Hemoglobin Oxyhemoglobin Sodium Potassium Chloride Carbon Dioxide BUN Creatinine Glucose POC Glucose 177 H 141 H 143 H Phosphorus Magnesium Alkaline Phosphatase Troponin T Total Protein Albumin Free T4 Crossmatch 05/05/22 05/05/22 05/05/22 00:05 04:20 04:20 WBC 12.8 H RBC 2.81 L Hgb 8.0 L Hct 24.8 L RDW 16.8 H Plt Count Lymph % (Auto) [place] % (Auto) Lymph # (Auto) [place] # (Auto) Seg Neutrophils % Seg Neuts % (Manual) 86.0 H Lymphocytes % (Manual) 4.0 L Nucleated RBC % 1.0 H Seg Neutrophils # Seg Neutrophils # Man 11.0 H Lymphocytes # (Manual) 0.5 L PT INR APTT Heparin Anti-Xa Level ABG pH ABG pO2 ABG HCO3 ABG Base Excess ABG Hemoglobin Oxyhemoglobin Sodium 130 L Potassium 3.3 L Chloride 94.0 L Carbon Dioxide BUN 24 H Creatinine 2.3 H Glucose 163 H POC Glucose 163 H Phosphorus 1.50 L Magnesium Alkaline Phosphatase Troponin T Total Protein Albumin Free T4 Crossmatch 05/05/22 05/05/22 05/05/22 05:18 10:06 12:11 WBC RBC Hgb Hct RDW Plt Count Lymph % (Auto) [place] % (Auto) Lymph # (Auto) [place] # (Auto) Seg Neutrophils % Seg Neuts % (Manual) Lymphocytes % (Manual) Nucleated RBC % Seg Neutrophils # Seg Neutrophils # Man Lymphocytes # (Manual) PT INR APTT Heparin Anti-Xa Level ABG pH ABG pO2 91.7 H ABG HCO3 27.4 H ABG Base Excess ABG Hemoglobin 11.4 L Oxyhemoglobin Sodium Potassium Chloride Carbon Dioxide BUN Creatinine Glucose POC Glucose 163 H 186 H Phosphorus Magnesium Alkaline Phosphatase Troponin T Total Protein Albumin Free T4 Crossmatch 05/05/22 05/06/22 05/06/22 16:29 04:45 04:59 WBC RBC Hgb Hct RDW Plt Count Lymph % (Auto) [place] % (Auto) Lymph # (Auto) [place] # (Auto) Seg Neutrophils % Seg Neuts % (Manual) Lymphocytes % (Manual) Nucleated RBC % Seg Neutrophils # Seg Neutrophils # Man Lymphocytes # (Manual) PT INR APTT Heparin Anti-Xa Level ABG pH ABG pO2 112.7 H ABG HCO3 ABG Base Excess ABG Hemoglobin 7.8 L Oxyhemoglobin Sodium Potassium Chloride Carbon Dioxide BUN Creatinine Glucose POC Glucose 170 H 146 H Phosphorus Magnesium Alkaline Phosphatase Troponin T Total Protein Albumin Free T4 Crossmatch 05/06/22 05/06/22 05/06/22 05:02 05:02 11:34 WBC RBC 2.78 L Hgb 7.9 L Hct 25.1 L RDW 16.7 H Plt Count 119 L Lymph % (Auto) [place] % (Auto) Lymph # (Auto) [place] # (Auto) Seg Neutrophils % Seg Neuts % (Manual) Lymphocytes % (Manual) Nucleated RBC % Seg Neutrophils # Seg Neutrophils # Man Lymphocytes # (Manual) PT INR APTT Heparin Anti-Xa Level ABG pH ABG pO2 ABG HCO3 ABG Base Excess ABG Hemoglobin Oxyhemoglobin Sodium 135 L Potassium 3.3 L Chloride 97.9 L Carbon Dioxide BUN 30 H Creatinine 2.7 H Glucose 148 H POC Glucose 130 H Phosphorus 1.50 L Magnesium Alkaline Phosphatase Troponin T Total Protein Albumin Free T4 Crossmatch 05/06/22 05/06/22 05/07/22 16:48 23:34 04:15 WBC RBC 2.95 L Hgb 8.4 L Hct 26.7 L RDW 16.7 H Plt Count 112 L Lymph % (Auto) [place] % (Auto) Lymph # (Auto) [place] # (Auto) Seg Neutrophils % Seg Neuts % (Manual) Lymphocytes % (Manual) Nucleated RBC % Seg Neutrophils # Seg Neutrophils # Man Lymphocytes # (Manual) PT INR APTT Heparin Anti-Xa Level ABG pH ABG pO2 ABG HCO3 ABG Base Excess ABG Hemoglobin Oxyhemoglobin Sodium Potassium Chloride Carbon Dioxide BUN Creatinine Glucose POC Glucose 121 H 145 H Phosphorus Magnesium Alkaline Phosphatase Troponin T Total Protein Albumin Free T4 Crossmatch 05/07/22 05/07/22 05/07/22 04:15 05:26 11:08 WBC RBC Hgb Hct RDW Plt Count Lymph % (Auto) [place] % (Auto) Lymph # (Auto) [place] # (Auto) Seg Neutrophils % Seg Neuts % (Manual) Lymphocytes % (Manual) Nucleated RBC % Seg Neutrophils # Seg Neutrophils # Man Lymphocytes # (Manual) PT INR APTT Heparin Anti-Xa Level ABG pH ABG pO2 ABG HCO3 ABG Base Excess ABG Hemoglobin Oxyhemoglobin Sodium 131 L Potassium 3.4 L Chloride 95.3 L Carbon Dioxide BUN 28 H Creatinine 2.5 H Glucose 140 H POC Glucose 136 H 136 H Phosphorus 1.20 L Magnesium Alkaline Phosphatase Troponin T Total Protein Albumin Free T4 Crossmatch 05/07/22 05/07/22 05/08/22 17:26 23:23 04:06 WBC RBC 2.87 L Hgb 8.2 L Hct 25.8 L RDW 16.2 H Plt Count 118 L Lymph % (Auto) [place] % (Auto) Lymph # (Auto) [place] # (Auto) Seg Neutrophils % Seg Neuts % (Manual) Lymphocytes % (Manual) Nucleated RBC % Seg Neutrophils # Seg Neutrophils # Man Lymphocytes # (Manual) PT INR APTT Heparin Anti-Xa Level ABG pH ABG pO2 ABG HCO3 ABG Base Excess ABG Hemoglobin Oxyhemoglobin Sodium Potassium Chloride Carbon Dioxide BUN Creatinine Glucose POC Glucose 135 H 123 H Phosphorus Magnesium Alkaline Phosphatase Troponin T Total Protein Albumin Free T4 Crossmatch 05/08/22 05/08/22 05/08/22 04:06 04:40 11:31 WBC RBC Hgb Hct RDW Plt Count Lymph % (Auto) [place] % (Auto) Lymph # (Auto) [place] # (Auto) Seg Neutrophils % Seg Neuts % (Manual) Lymphocytes % (Manual) Nucleated RBC % Seg Neutrophils # Seg Neutrophils # Man Lymphocytes # (Manual) PT INR APTT Heparin Anti-Xa Level ABG pH 7.482 H ABG pO2 103.9 H ABG HCO3 ABG Base Excess ABG Hemoglobin 8.1 L Oxyhemoglobin Sodium 132 L Potassium 3.3 L Chloride 93.2 L Carbon Dioxide BUN 36 H Creatinine 2.9 H Glucose 145 H POC Glucose 138 H Phosphorus 2.00 L D Magnesium Alkaline Phosphatase Troponin T Total Protein Albumin Free T4 Crossmatch 05/08/22 05/08/22 05/08/22 16:11 21:00 23:46 WBC RBC Hgb Hct RDW Plt Count Lymph % (Auto) [place] % (Auto) Lymph # (Auto) [place] # (Auto) Seg Neutrophils % Seg Neuts % (Manual) Lymphocytes % (Manual) Nucleated RBC % Seg Neutrophils # Seg Neutrophils # Man Lymphocytes # (Manual) PT INR APTT Heparin Anti-Xa Level ABG pH ABG pO2 68.8 L ABG HCO3 27.0 H ABG Base Excess ABG Hemoglobin 8.4 L Oxyhemoglobin 93.4 L Sodium Potassium Chloride Carbon Dioxide BUN Creatinine Glucose POC Glucose 134 H 142 H Phosphorus Magnesium Alkaline Phosphatase Troponin T Total Protein Albumin Free T4 Crossmatch 05/09/22 05/09/22 05/09/22 04:25 04:25 11:29 WBC RBC 2.86 L Hgb 8.0 L Hct 25.7 L RDW 16.2 H Plt Count 101 L Lymph % (Auto) [place] % (Auto) Lymph # (Auto) [place] # (Auto) Seg Neutrophils % Seg Neuts % (Manual) Lymphocytes % (Manual) Nucleated RBC % Seg Neutrophils # Seg Neutrophils # Man Lymphocytes # (Manual) PT INR APTT Heparin Anti-Xa Level ABG pH ABG pO2 ABG HCO3 ABG Base Excess ABG Hemoglobin Oxyhemoglobin Sodium 132 L Potassium 3.5 L Chloride 93.7 L Carbon Dioxide BUN 42 H Creatinine 3.0 H Glucose 145 H POC Glucose 180 H Phosphorus Magnesium Alkaline Phosphatase Troponin T Total Protein Albumin Free T4 Crossmatch 05/09/22 05/10/22 05/10/22 16:19 05:55 16:37 WBC RBC Hgb Hct RDW Plt Count Lymph % (Auto) [place] % (Auto) Lymph # (Auto) [place] # (Auto) Seg Neutrophils % Seg Neuts % (Manual) Lymphocytes % (Manual) Nucleated RBC % Seg Neutrophils # Seg Neutrophils # Man Lymphocytes # (Manual) PT INR APTT Heparin Anti-Xa Level ABG pH ABG pO2 ABG HCO3 ABG Base Excess ABG Hemoglobin Oxyhemoglobin Sodium Potassium Chloride Carbon Dioxide BUN Creatinine Glucose POC Glucose 143 H 164 H 130 H Phosphorus Magnesium Alkaline Phosphatase Troponin T Total Protein Albumin Free T4 Crossmatch 05/11/22 05/11/22 05/11/22 00:56 05:13 18:11 WBC RBC Hgb Hct RDW Plt Count Lymph % (Auto) [place] % (Auto) Lymph # (Auto) [place] # (Auto) Seg Neutrophils % Seg Neuts % (Manual) Lymphocytes % (Manual) Nucleated RBC % Seg Neutrophils # Seg Neutrophils # Man Lymphocytes # (Manual) PT INR APTT Heparin Anti-Xa Level ABG pH ABG pO2 ABG HCO3 ABG Base Excess ABG Hemoglobin Oxyhemoglobin Sodium Potassium Chloride Carbon Dioxide BUN Creatinine Glucose POC Glucose 179 H 139 H 166 H Phosphorus Magnesium Alkaline Phosphatase Troponin T Total Protein Albumin Free T4 Crossmatch 05/11/22 05/12/22 05/12/22 23:53 04:11 04:11 WBC 18.0 H RBC 2.56 L Hgb 7.2 L Hct 23.2 L RDW 16.4 H Plt Count Lymph % (Auto) 7.8 L [place] % (Auto) 14.2 H Lymph # (Auto) [place] # (Auto) 2.5 H Seg Neutrophils % 77.1 H Seg Neuts % (Manual) Lymphocytes % (Manual) Nucleated RBC % Seg Neutrophils # 13.9 H Seg Neutrophils # Man Lymphocytes # (Manual) PT 15.4 H INR APTT Heparin Anti-Xa Level ABG pH ABG pO2 ABG HCO3 ABG Base Excess ABG Hemoglobin Oxyhemoglobin Sodium Potassium Chloride Carbon Dioxide BUN Creatinine Glucose POC Glucose 115 H Phosphorus Magnesium Alkaline Phosphatase Troponin T Total Protein Albumin Free T4 Crossmatch 05/12/22 05/12/22 05/12/22 05:03 06:00 06:07 WBC RBC Hgb Hct RDW Plt Count Lymph % (Auto) [place] % (Auto) Lymph # (Auto) [place] # (Auto) Seg Neutrophils % Seg Neuts % (Manual) Lymphocytes % (Manual) Nucleated RBC % Seg Neutrophils # Seg Neutrophils # Man Lymphocytes # (Manual) PT INR APTT Heparin Anti-Xa Level ABG pH ABG pO2 ABG HCO3 ABG Base Excess ABG Hemoglobin Oxyhemoglobin Sodium 133 L Potassium Chloride 94.1 L Carbon Dioxide BUN 29 H Creatinine 2.4 H Glucose 145 H POC Glucose 122 H Phosphorus Magnesium Alkaline Phosphatase 332 H Troponin T Total Protein 4.8 L Albumin 2.0 L Free T4 Crossmatch See Detail 05/12/22 05/12/22 05/12/22 11:36 16:44 18:00 WBC RBC Hgb 8.7 L Hct 27.1 L RDW Plt Count Lymph % (Auto) [place] % (Auto) Lymph # (Auto) [place] # (Auto) Seg Neutrophils % Seg Neuts % (Manual) Lymphocytes % (Manual) Nucleated RBC % Seg Neutrophils # Seg Neutrophils # Man Lymphocytes # (Manual) PT INR APTT Heparin Anti-Xa Level ABG pH ABG pO2 ABG HCO3 ABG Base Excess ABG Hemoglobin Oxyhemoglobin Sodium Potassium Chloride Carbon Dioxide BUN Creatinine Glucose POC Glucose 143 H 121 H Phosphorus Magnesium Alkaline Phosphatase Troponin T Total Protein Albumin Free T4 Crossmatch 05/12/22 05/13/22 05/13/22 23:06 04:00 04:00 WBC 16.6 H RBC 3.04 L Hgb 8.8 L Hct 26.9 L RDW 15.3 H Plt Count Lymph % (Auto) [place] % (Auto) Lymph # (Auto) [place] # (Auto) Seg Neutrophils % Seg Neuts % (Manual) Lymphocytes % (Manual) Nucleated RBC % Seg Neutrophils # Seg Neutrophils # Man Lymphocytes # (Manual) PT INR APTT Heparin Anti-Xa Level ABG pH ABG pO2 ABG HCO3 ABG Base Excess ABG Hemoglobin Oxyhemoglobin Sodium 131 L Potassium Chloride 93.2 L Carbon Dioxide BUN 38 H Creatinine 2.7 H Glucose 145 H POC Glucose 129 H Phosphorus Magnesium Alkaline Phosphatase Troponin T Total Protein Albumin Free T4 Crossmatch 05/13/22 05/13/22 05/13/22 05:00 12:17 18:08 WBC RBC Hgb Hct RDW Plt Count Lymph % (Auto) [place] % (Auto) Lymph # (Auto) [place] # (Auto) Seg Neutrophils % Seg Neuts % (Manual) Lymphocytes % (Manual) Nucleated RBC % Seg Neutrophils # Seg Neutrophils # Man Lymphocytes # (Manual) PT INR APTT Heparin Anti-Xa Level ABG pH ABG pO2 ABG HCO3 ABG Base Excess ABG Hemoglobin Oxyhemoglobin Sodium Potassium Chloride Carbon Dioxide BUN Creatinine Glucose POC Glucose 136 H 143 H 142 H Phosphorus Magnesium Alkaline Phosphatase Troponin T Total Protein Albumin Free T4 Crossmatch 05/14/22 05/14/22 05/14/22 00:22 04:30 05:36 WBC 13.4 H RBC 2.83 L Hgb 8.1 L Hct 25.1 L RDW Plt Count Lymph % (Auto) [place] % (Auto) Lymph # (Auto) [place] # (Auto) Seg Neutrophils % Seg Neuts % (Manual) Lymphocytes % (Manual) Nucleated RBC % Seg Neutrophils # Seg Neutrophils # Man Lymphocytes # (Manual) PT INR APTT Heparin Anti-Xa Level ABG pH ABG pO2 ABG HCO3 ABG Base Excess ABG Hemoglobin Oxyhemoglobin Sodium Potassium Chloride Carbon Dioxide BUN Creatinine Glucose POC Glucose 147 H 122 H Phosphorus Magnesium Alkaline Phosphatase Troponin T Total Protein Albumin Free T4 Crossmatch 05/14/22 05/14/22 05/14/22 11:15 11:58 18:04 WBC RBC Hgb Hct RDW Plt Count Lymph % (Auto) [place] % (Auto) Lymph # (Auto) [place] # (Auto) Seg Neutrophils % Seg Neuts % (Manual) Lymphocytes % (Manual) Nucleated RBC % Seg Neutrophils # Seg Neutrophils # Man Lymphocytes # (Manual) PT INR APTT Heparin Anti-Xa Level ABG pH 7.479 H ABG pO2 ABG HCO3 30.6 H ABG Base Excess 6.5 H ABG Hemoglobin 9.0 L Oxyhemoglobin Sodium Potassium Chloride Carbon Dioxide BUN Creatinine Glucose POC Glucose 167 H 134 H Phosphorus Magnesium Alkaline Phosphatase Troponin T Total Protein Albumin Free T4 Crossmatch 05/15/22 00:28 WBC RBC Hgb Hct RDW Plt Count Lymph % (Auto) [place] % (Auto) Lymph # (Auto) [place] # (Auto) Seg Neutrophils % Seg Neuts % (Manual) Lymphocytes % (Manual) Nucleated RBC % Seg Neutrophils # Seg Neutrophils # Man Lymphocytes # (Manual) PT INR APTT Heparin Anti-Xa Level ABG pH ABG pO2 ABG HCO3 ABG Base Excess ABG Hemoglobin Oxyhemoglobin Sodium Potassium Chloride Carbon Dioxide BUN Creatinine Glucose POC Glucose 135 H Phosphorus Magnesium Alkaline Phosphatase Troponin T Total Protein Albumin Free T4 Crossmatch Allied health notes reviewed: RT
[2022-05-15 11:39] LABS: Calcium 8.5 mg/dL (8.4-10.2)
[2022-05-15] MEDS ORDERED: SODIUM CHLORIDE 0.9% 1000 ML 1,000 ML ONE (12:52)
[2022-05-15] MEDS ORDERED: KETAMINE/STERILE WATER 50 MG/ML SYRINGE ONE (12:52)
[2022-05-15] MEDS ORDERED: PHENYLEPHRINE/NS 1,000 MCG/10 ML SYRINGE (OR USE) IV ONE (13:02)
[2022-05-15] MEDS ORDERED: PHENYLEPHRINE 10 MG/1 ML INJ SDV ONE (13:07)
[2022-05-15] MEDS ORDERED: LIDOCAINE (1%) 10 MG/1 ML VIAL 20 ML MDV INFILTRATI ONE (13:14)
--- NOTE | 2022-05-15 13:38 | Operative Report ---
Operative Report Operative Report: Date of surgery: 05/15/2022 Preoperative diagnosis: Vent dependence Postoperative diagnosis: Same as above Procedure: Percutaneous tracheostomy Surgeon: Ruthann Russell DO Anesthesia: Geta, local Findings: Good placement of tracheostomy as visualized by fiberoptic bronchoscopy EBL: LESS than 5 cc Specimen: None Complications: None Disposition: Stable to ICU HPI and indication: Patient is a 66-year-old female who was admitted to [facility] for altered mental status and respiratory distress. Patient was intubated on 05/02/2022 and has not been able to be liberated from the vent. Tracheostomy was requested by ICU attending. All risk, benefits, alternatives to the procedure were discussed with the patient's son Raymundo Randolph and questions answered. Consent obtained for tracheostomy. Procedure in detail: The patient was identified in the ICU and brought down to the operating room and positioned in supine position in the hospital bed. Consent was verified on the chart timeout was performed. After anesthesia was induced, a shoulder roll was placed, and the patient's neck mildly hyperextended. The neck was prepped and draped in usual sterile fashion. Dr. Norman performed fiberoptic bronchoscopy throughout the entire procedure - see separate note. The fiberoptic bronchoscope was inserted through the endotracheal tube via the adapter and the trachea examined. The trachea was unremarkable and the ET tube was approximately 1 cm from tena at 24 cm at the lip. 1% lidocaine was infiltrated into the skin and subcutaneous tissue approximately 2 fingerbreadths above the sternal notch. A 2 cm incision was made in a horizontal fashion using a 15 blade. Using a hemostat the soft tissues were bluntly dissected until the trachea was encountered. The ET tube was then pulled back slowly to 16 cm. Using the introducer needle, the trachea was entered under direct visualization. The wire was passed down the trachea towards the tena. Introducer needle was then removed. The trachea was then serially dilated, after which a 8 Thai Shiley tracheostomy tube was inserted. The balloon was visualized via fiberoptic bronchoscopy. The balloon was inflated, patient placed back on ventilator. There was end-tidal CO2 detected and tidal volumes assessed which were satisfactory. The bronchoscope was then placed through the tracheostomy and showed good positioning of the tracheostomy approximately 3 cm above the tena and no active bleeding. There was old blood clot present in the upper airway which was irrigated and successfully aspirated using inline suction. Reexamination with fiberoptic scope revealed clear upper airway. A drain sponge was placed between the skin and tracheostomy. The tracheostomy was secured to the patient's neck using a tracheostomy strap and sutured through each phalange to the skin using 2-0 prolene interrupted stitches. A post op chest x-ray is pending. The patient tolerated the procedure well. All sharps were disposed of appropriately. The patient was taken back to the ICU in stable condition.
--- NOTE | 2022-05-15 13:46 | Progress Note ---
<NONALORRAINE WintersSue - Last Filed: 05/15/22 13:41> Assessment and Plan Assessment and plan: This is a 66-year-old female with HTN, GERD, seizure disorder, vascular dementia, ESRD on HD, chronic hypertension, bipolar, schizophrenia, anxiety admitted with acute hypoxic respiratory failure, acute on chronic hypotension, acute on chronic metabolic encephalopathy and SVT Neuro: h/o vascular dementia, schizophrenia, bipolar, anxiety disorder -Continue Seroquel -As needed Ativan -Reorientation as needed -Maintain sleep-wake cycle -As needed analgesia -Continue home memantine, respiradol, valproic acid -CT head showed no acute intracranial abnormalities, no significant interval changes -Psych consulted, appreciate recommendations Cardiac: SVT s/p cardioversion, chronic hypotension, NSTEMI type II -Cardiology consulted, appreciate recommendations -Blood pressure monitoring per protocol -s/p vasopressor support with Levophed -Cortisol 24.4 -s/p Fludrocortisone for 4 doses -Midodrine 20mg TID -Echo 01/31/2022-EF 60 to 65%. Doppler flow pattern suggests impaired LV r elaxation. Right ventricle systolic function is normal trace aortic regurgitation. Trace mitral regurgitation. -Lipitor, Plavix Respiratory: Acute hypoxic respiratory failure -CCM consulted, appreciate recommendations -04/23 Chest ultrasound showed bilateral pleural effusions, right greater than left -Intubated 05/03 with 7.5 oett at 22 at the lips -05/03 bronch at bedside -05/05 therapeutic bronch at the bedside -ABG abg and CXR noted -AM vent settings: AC Rate 14, TV 450, Peep 6, FiO2 30% -See RT notes for titration -Trach 05/15 -Pulmonary hygiene -SPO2 monitor per protocol -CTA chest with contrast shows large right and moderate-sized left pleural effusions with moderate body wall edema, groundglass pulmonary opacities in the upper lobes likely representing atypical pneumonia, no CT evidence of pulmonary embolism. -Chest US showed right pleural and she received a bedside thoracentesis 05/09 GI: Moderate protein calorie malnutrition, dysphagia s/p PEG -GI consulted -s/p peg 05/04 -24 hours + 1306 mL -PPI -TF -BR: Senokot : ESRD on HD -Nephrology consulted, appreciate recommendations -HD per nephrology (TThSat) -Monitor intake and output -Renally dose medications -Avoid nephrotoxic medications -Epogen 3 times daily -Nephrology to try hydrocortisone/fludocortisone -Trend BMP ID: Septic Shock (unable to determine status), MRSA PNA -ID consulted, appreciate recommendations -f/u blood culture -04/19 blood cultures x2 NGTD, bronch wash with MRSA -ABX therapy with vanco and cefepime -Monitor WBC and temperature curve Endo: NAD -Avoid hypoglycemia Heme: Anemia of chronic disease, RIJ thrombus (chronic), leukocytosis -Vascular surgery consulted, appreciate recommendations -no need for heparin gtt per vascular surgery -HIT pending -Trend CBC -Transfuse hemoglobin less than 7 -s/p 4 unit PRBC -Epogen 3 times daily -SCDs to BLE while in bed The high probability of a clinically significant, sudden or life threatening deterioration of the [multiple] system(s) required my full and direct attention, intervention and personal management. The aggregate critical care time was [60] minutes. This time is in addition to time spent performing reported procedures but includes the following: [x] Data Review and interpretation [x] Patient assessment and monitoring of vital signs [x] Documentation [x] Medication orders and management Disposition Plan: icu Total Time Spent with Patient (Minutes): 60 History Interval history: This is a 66-year-old female with HTN, GERD, seizure disorder, vascular demen tia, ESRD on HD (TTS), OA, chronic hypotension, bipolar, schizophrenia, anxiety examined mobility with a resident of [facility] present to the emergency department on 04/19 with altered mental status and for being combative causing her to miss several days of hemodialysis. On presentation patient was found to be more hypertensive than usual and on room air with oxygen saturations in the 90s and she subsequently went into SVT into the 150s requiring cardioversion under conscious sedation. Patient was admitted to the hospital service with acute hypoxic respiratory failure, acute on chronic hypotension, acute on chronic metabolic encephalopathy, SVT, hyperkalemia, NSTEMI type II to the ICU with consults to CCM, nephrology cardiology and psych. Hospital Course to Date: 04/20: Patient went into Afib with RVR overnight, now on amiodarone gtt per cardio. Patient remains in AFib with RVR this am, HR in the 120-140s. BP marginal on Levophed gtt, currently not a candidate for BB. Midodrine increased to 15mg TID. 2D Echo pending. On heparin gtt per protocol. No HD today per nephro due to hypotension and tachycardia. 04/21: Converted to SR this am, remains on Amiodarone and heparin. Awaiting cardio final recommendations. Still on Levophed gtt for low BP, given patient history of chronic hypotension, Wean pressor for MAP goal of 60s. Patient is pocketing foods, currently NPO, awaiting speech eval and treat. 04/22: Patient passed speech swallow eval yesterday, however, patient is refusing PO intakes including meds. Will insert DHT for nutrition and meds administration. Patient remains in SR this am, amiodaron gtt transitioned to PO per cardio. Patient remains on heparin and Levophed gtt. Patient has not received PO midrodrine for 24hrs, resume meds once DHT is inserted. Keep femoral CVC for another 24hrs, anticipating will be able to wean off pressor once patient receive midodrine. Will reassess in the morning. No HD overnight, unable to cannulate AVF, plan to attempt again today per Nephro. Possible IR/Vascular surgery consult if unsuccessful again today. 04/23: Mentation a lot better this am. DHT was inserted, meds resumed and TF initiated. Levophed gtt increased overnight due to worsen hypotension, suspected it is due to sedative agents. Seroquel decreased to 200mg BID and scheduled ativan switched to PRN. Continue midodrine TID and wean off levophed gtt for MAP goal of 60. Patient tolerated HD yesterday, continue iHD per Nephrology. CCM recommendations noted, Chest US ordered for pleural effusion. 04/24: RN instructed to wean Levophed off, goal MAP of 60. Heparin drip stopped due to decreasing hemoglobin. 04/25: ST had cleared the patient for pured diet which will be started today, hemodialysis planned for today, patient was to be anemic and will receive 1 unit PRBC with HD. We will increase midodrine to 20 mg 3 times daily if patient becomes hypotensive during dialysis. Per CCM. Decrease in seroqoul but will increase if needed 04/26: Patient agreeable to PEG, GI consulted for placement. Femoral line removed 04/27: No acute events reported overnight, patient has been cardiac cleared for PEG tube placement. Possible PEG in the a.m. This afternoon attempted to place IJ CVL which was unsuccessful and Dr. Mcguire ultimately placed femoral CVL for the initiation of Levophed. HD scheduled for today. 04/28: Patient initially started on Levophed yesterday and she received a femoral CVL. 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 Vascular surgery was consulted. Patient also noted to be anemic and received 1 unit PRBC today. 04/29: Possible hemodialysis today, patient was able to be weaned off of Levophed today. Hemoglobin responded well to 1 unit PRBC. Awaiting trach/PEG placement. Patient will not need to be started on heparin drip per vascular surgery. No acute events reported overnight. 04/30: HD yesterday without removal of fluids, patient needs NT suctioning. Updated son today. 05/01: Patient with increase mucous production and is unable to fully clear her airway, Rhonchi auscultated throughout her lungs this am. SPO2 at 90 to 94% on 3L NC. D/W CCM, patient is high risk for aspiration will placed patient on heated HF at 40L for now instead of Bipap. Nasal bleeding also noted, mostly due to NT suctioning. Refrain from NT suctioning for now due to bleeding, only oral suctioning. PO seroquel held this amP atient is AAO, appropriate, and following commands. Levophed gtt weaned off, patient remains hemodynamically stable. Will discuss Nephro for possible fluid removal tonight or early tomorrow. Very low threshold for intubation. Patient's condition and plan of care, including possible intubation, thoroughly discussed with patient's son-Raymundo Randolph at . Patient's son verbalized understanding of the info provided and agreed with intubation if necessary. 05/02: Remains on HHFL at 40% and 40L, mentation is unchanged. HD at the bedside, plan for possible UF with fluid removal today. Continue O2 supplementation and wean as tolerated, for SPO2 above 92%. Repeat CXR in the am. Patient vital signs remains stable, still off pressors. Plan for possible PEG-tube placement by GI tomorrow, NPO after MN. Possible fistulogram for RIJ thrombus on or sunday per Vascular Surgery. 05/03: Complete white-out of right side from this am CXR, probable mucus plug. S/p intubation and bronch at the bedside by [facility]. Patient remains sedated and required short duration of Levophed gtt during the procedure. Pressor was wean off, VSS. Plan for CPT and mucomyst Q12hrs. Repeat CXR in the am. PEG-Tube placement postpone for possibly tomorrow if patient remains stable. Possible fistulogram for RIJ thrombus on or Sunday per Vascular Surgery. 05/04: Remains on the vent, easily arousable. High fevers overnight with spike in leukocytosis, now on 2 pressors. CCM d/w ID, recommendations to repeat blood cultures and empiric IV abx- Cefepine and Vanco. low H&H this am, no s/s of any active bleeding, 1units of PRBCs during iHD today. S/p PEG-tube placement at this bedside this am by GI, no complications noted. Resume TF once clear by GI. 05/05: Remains on low vent setting. This am CXR with increase opacities on the right side again today, s/p therapeutic bronch at the bedside today by [facility]. Repeat CXR in the am. Remains with low grade fevers and on 2 pressors. Bronchial wash with Staph A. and blood cultures pending. Continue current IV Abx per ID. 05/06: Stable on the vent this am. Only on low dose pressors, MAP above 65. CXR with some improvement, peep dropped to 8 per CCM. Continue CPT and Mucomyst TID. If patient remains stable overnight, possible PSV trial in the am. Fevers and leukocytosis improved. Continue current IV Abx per ID. Continue iHD per Nephro 05/07: Remains stable on the vent, afebrile and off pressors this am VSS. This am CXR reviewed, increased opacities on the right side. Patient remains on low vent settings. Further management per CCM, continue CPT and Mucomyst TID. Bronch wash with MRSA, blood cultures pending. Continue current IV Abx per ID. 05/08: We will replete potassium, CCM would like a CTA chest but evaluate atelectasis/consolidation/effusions. LTAC evaluation 05/09: HD today, CTA chest completed. CPAP yesterday but rested on AC overnight. 05/10: Patient discharge will be delayed till tomorrow due to bed unavailability at LTAC facility, no acute distress overnight. Patient placed on PSV but failed. 05/11: Transferred to LTAC has been delayed. Patient received hemodialysis today. Patient CPAP trial and she fell today. No acute events reported overnight. 05/12: Overnight patient was restarted on Levophed, patient was scheduled for tracheostomy and noted drop in hemoglobin therefore patient was ordered to be transfused for 1 unit. Patient did receive dialysis yesterday. Due to the use of vasopressors surgery was canceled. Patient did have 1 spike in temperature to 101 and given increase in WBC patient was started on IV cefepime for 3 days to complete her 8-day therapy as recommended by infectious disease. 05/13: Patient remains on Levophed. He received PRBC yesterday. Blood pressure continues to be labile. RN to wean as tolerated. CPAP trial today 05/14: Patient received hemodialysis yesterday. She has been weaned off of Levophed. Patient attempted on PSV today. Trach tentatively scheduled for to [place]. 05/15: Patient received a tracheostomy today. No acute events reported overnight. Remains off of Levophed. Nephrology would like to order fludrocortisone/Solu-Cortef. Hospitalist Physical - Constitutional Vitals: Temp Pulse Resp BP Pulse Ox 98.3 F 89 14 107/30 100 05/15/22 11:47 05/15/22 12:23 05/15/22 12:00 05/15/22 12:23 05/15/22 12:23 General appearance: Present: no acute distress, other (intubated) - EENT Eyes: Present: PERRL, EOM intact ENT: dentition normal - Neck Neck: Present: normal ROM - Respiratory Respiratory effort: normal Respiratory: bilateral: rhonchi - Cardiovascular Rhythm: regular Heart Sounds: Present: S1 & S2. Absent: systolic murmur, diastolic murmur - Extremities Extremities: no ischemia, pulses intact Extremity abnormal: edema Peripheral Pulses: within normal limits - Abdominal General gastrointestinal: soft, non-tender, non-distended, normal bowel sounds - Integumentary Integumentary: Present: warm, dry - Psychiatric Psychiatric: cooperative - Neurologic Neurologic: CNII-XII intact, no focal deficits, moves all extremities - Allied Health Allied health notes reviewed: nursing, RT, social work HEART Score - HEART Score Troponin: Troponin T 0.415 ng/mL (0.00-0.029) H* 04/19/22 04:53 Results - Labs CBC & Chem 7: 05/14/22 05:36 05/15/22 11:13 Labs: Laboratory Last Values WBC 13.4 K/mm3 (4.5-11.0) H 05/14/22 05:36 RBC 2.83 M/mm3 (3.65-5.03) L 05/14/22 05:36 Hgb 8.1 gm/dl (10.1-14.3) L 05/14/22 05:36 Hct 25.1 % (30.3-42.9) L 05/14/22 05:36 MCV 89 fl (79-97) 05/14/22 05:36 MCH 29 pg (28-32) 05/14/22 05:36 MCHC 32 % (30-34) 05/14/22 05:36 RDW 15.1 % (13.2-15.2) 05/14/22 05:36 Plt Count 260 K/mm3 (140-440) 05/14/22 05:36 Lymph % (Auto) 7.8 % (13.4-35.0) L 05/12/22 04:11 [place] % (Auto) 14.2 % (0.0-7.3) H 05/12/22 04:11 Eos % (Auto) 0.5 % (0.0-4.3) 05/12/22 04:11 Baso % (Auto) 0.4 % (0.0-1.8) 05/12/22 04:11 Lymph # (Auto) 1.4 K/mm3 (1.2-5.4) 05/12/22 04:11 Chilton # (Auto) 2.5 K/mm3 (0.0-0.8) H 05/12/22 04:11 Eos # (Auto) 0.1 K/mm3 (0.0-0.4) 05/12/22 04:11 Baso # (Auto) 0.1 K/mm3 (0.0-0.1) 05/12/22 04:11 Add Manual Diff Complete 05/05/22 04:20 Total Counted 100 05/05/22 04:20 Seg Neutrophils % 77.1 % (40.0-70.0) H 05/12/22 04:11 Seg Neuts % (Manual) 86.0 % (40.0-70.0) H 05/05/22 04:20 Band Neutrophils % 3.0 % 05/05/22 04:20 Lymphocytes % (Manual) 4.0 % (13.4-35.0) L 05/05/22 04:20 Reactive Lymphs % (Man) 0 % 05/05/22 04:20 Monocytes % (Manual) 6.0 % (0.0-7.3) 05/05/22 04:20 Eosinophils % (Manual) 1.0 % (0.0-4.3) 05/05/22 04:20 Basophils % (Manual) 0 % (0.0-1.8) 05/05/22 04:20 Metamyelocytes % 0 % 05/05/22 04:20 Myelocytes % 0 % 05/05/22 04:20 Promyelocytes % 0 % 05/05/22 04:20 Blast Cells % 0 % 05/05/22 04:20 Nucleated RBC % 1.0 % (0.0-0.9) H 05/05/22 04:20 Seg Neutrophils # 13.9 K/mm3 (1.8-7.7) H 05/12/22 04:11 Seg Neutrophils # Man 11.0 K/mm3 (1.8-7.7) H 05/05/22 04:20 Band Neutrophils # 0.4 K/mm3 05/05/22 04:20 Lymphocytes # (Manual) 0.5 K/mm3 (1.2-5.4) L 05/05/22 04:20 Abs React Lymphs (Man) 0.0 K/mm3 05/05/22 04:20 Monocytes # (Manual) 0.8 K/mm3 (0.0-0.8) 05/05/22 04:20 Eosinophils # (Manual) 0.1 K/mm3 (0.0-0.4) 05/05/22 04:20 Basophils # (Manual) 0.0 K/mm3 (0.0-0.1) 05/05/22 04:20 Metamyelocytes # 0.0 K/mm3 05/05/22 04:20 Myelocytes # 0.0 K/mm3 05/05/22 04:20 Promyelocytes # 0.0 K/mm3 05/05/22 04:20 Blast Cells # 0.0 K/mm3 05/05/22 04:20 WBC Morphology Not Reportable 05/05/22 04:20 Hypersegmented Neuts Not Reportable 05/05/22 04:20 Hyposegmented Neuts Not Reportable 05/05/22 04:20 Hypogranular Neuts Not Reportable 05/05/22 04:20 Smudge Cells Not Reportable 05/05/22 04:20 Toxic Granulation Not Reportable 05/05/22 04:20 Toxic Vacuolation Not Reportable 05/05/22 04:20 Dohle Bodies Not Reportable 05/05/22 04:20 Pelger-Huet Anomaly Not Reportable 05/05/22 04:20 Ubaldo Rods Not Reportable 05/05/22 04:20 Platelet Estimate Consistent w auto 05/05/22 04:20 Clumped Platelets Not Reportable 05/05/22 04:20 Plt Clumps, EDTA Not Reportable 05/05/22 04:20 Large Platelets Not Reportable 05/05/22 04:20 Giant Platelets Not Reportable 05/05/22 04:20 Platelet Satelliting Not Reportable 05/05/22 04:20 Plt Morphology Comment Not Reportable 05/05/22 04:20 RBC Morphology Not Reportable 05/05/22 04:20 Dimorphic RBCs Not Reportable 05/05/22 04:20 Polychromasia Not Reportable 05/05/22 04:20 Hypochromasia 2+ 05/05/22 04:20 Poikilocytosis Not Reportable 05/05/22 04:20 Anisocytosis 1+ 05/05/22 04:20 Microcytosis Not Reportable 05/05/22 04:20 Macrocytosis Not Reportable 05/05/22 04:20 Spherocytes Not Reportable 05/05/22 04:20 Pappenheimer Bodies Not Reportable 05/05/22 04:20 Sickle Cells Not Reportable 05/05/22 04:20 Target Cells Not Reportable 05/05/22 04:20 Tear Drop Cells Not Reportable 05/05/22 04:20 Ovalocytes Not Reportable 05/05/22 04:20 Helmet Cells Not Reportable 05/05/22 04:20 Rangel-Freistatt Bodies Not Reportable 05/05/22 04:20 Sherwood Rings Not Reportable 05/05/22 04:20 Elida Cells Not Reportable 05/05/22 04:20 Bite Cells Not Reportable 05/05/22 04:20 Crenated Cell Not Reportable 05/05/22 04:20 Elliptocytes Not Reportable 05/05/22 04:20 Acanthocytes (Spur) Not Reportable 05/05/22 04:20 Rouleaux Not Reportable 05/05/22 04:20 Hemoglobin C Crystals Not Reportable 05/05/22 04:20 Schistocytes Not Reportable 05/05/22 04:20 Malaria parasites Not Reportable 05/05/22 04:20 Torrey Bodies Not Reportable 05/05/22 04:20 Hem Pathologist Commnt No 05/05/22 04:20 PT 15.4 Sec. (12.2-14.9) H 05/12/22 04:11 INR 1.09 (0.87-1.13) 05/12/22 04:11 APTT 39.4 Sec. (24.2-36.6) H 05/03/22 04:24 Heparin Anti-Xa Level < 0.10 U.I./ml (0.3-0.7) L 04/24/22 10:20 Heparin Anti-Xa, Unfract Negative (Negative) 05/09/22 21:12 ABG pH 7.479 pH Units (7.350-7.450) H 05/14/22 11:15 ABG pCO2 42.1 mm Hg 05/14/22 11:15 ABG pO2 81.2 mm Hg (80.0-90.0) 05/14/22 11:15 ABG HCO3 30.6 mmol/L (20.0-26.0) H 05/14/22 11:15 ABG O2 Saturation 97.0 % (95.0-99.0) 05/14/22 11:15 ABG O2 Content 12.2 (0.0-44) 05/14/22 11:15 ABG Base Excess 6.5 mmol/L (-2.0-3.0) H 05/14/22 11:15 ABG Hemoglobin 9.0 gm/dl (12.0-16.0) L 05/14/22 11:15 ABG Carboxyhemoglobin 1.5 % (0.0-5.0) 05/14/22 11:15 ABG Methemoglobin 0.6 % (0.0-1.5) 05/14/22 11:15 Oxyhemoglobin 95.0 % (95.0-99.0) 05/14/22 11:15 FiO2 30 % 05/14/22 11:15 Sodium 133 mmol/L (137-145) L 05/15/22 11:13 Potassium 4.2 mmol/L (3.6-5.0) 05/15/22 11:13 Chloride 95.8 mmol/L (98-107) L 05/15/22 11:13 Carbon Dioxide 30 mmol/L (22-30) 05/15/22 11:13 Anion Gap 11 mmol/L 05/15/22 11:13 BUN 36 mg/dL (7-17) H 05/15/22 11:13 Creatinine 3.0 mg/dL (0.6-1.2) H 05/15/22 11:13 Estimated GFR 16 ml/min 05/15/22 11:13 BUN/Creatinine Ratio 12 % 05/15/22 11:13 Glucose 110 mg/dL (65-100) H 05/15/22 11:13 POC Glucose 89 mg/dL (70-105) 05/15/22 05:05 Lactic Acid 1.60 mmol/L (0.7-2.0) 04/19/22 07:14 Calcium 8.5 mg/dL (8.4-10.2) 05/15/22 11:13 Phosphorus 3.00 mg/dL (2.5-4.5) D 05/09/22 04:25 Magnesium 1.80 mg/dL (1.7-2.3) 05/09/22 04:25 Total Bilirubin 0.30 mg/dL (0.1-1.2) 05/12/22 06:00 AST 24 units/L (5-40) 05/12/22 06:00 ALT 7 units/L (7-56) 05/12/22 06:00 Alkaline Phosphatase 332 units/L (35-129) H 05/12/22 06:00 Ammonia 25.0 umol/L (25-60) 04/19/22 04:53 Lactate Dehydrogenase 142 units/L (91-180) 05/09/22 04:25 Troponin T 0.415 ng/mL (0.00-0.029) H* 04/19/22 04:53 Total Protein 4.8 g/dL (6.3-8.2) L 05/12/22 06:00 Albumin 2.0 g/dL (3.9-5) L 05/12/22 06:00 Albumin/Globulin Ratio 0.7 % 05/12/22 06:00 Procalcitonin 42.42 ng/mL (<0.15) 05/05/22 04:20 TSH 1.700 mlU/mL (0.270-4.200) 04/19/22 04:53 Free T4 0.28 ng/dL (0.76-1.46) L 04/19/22 04:53 Total Cortisol 24.4 mcg/dL () 04/27/22 04:45 Fluid Type Pleural 05/09/22 Unknown Fluid Color Yellow 05/09/22 Unknown Fluid Appearance Clear 05/09/22 Unknown Fluid WBC 21 /mm3 05/09/22 Unknown Fluid RBC 12 /mm3 05/09/22 Unknown Fluid Seg Neutrophils 60.0 % 05/09/22 Unknown Fluid Lymphocytes 11.0 % 05/09/22 Unknown Fluid Monocytes 29.0 % 05/09/22 Unknown Random Vancomycin 20.0 ug/mL (0-40.0) 05/11/22 03:56 Heparin-induced Plt Ab Negative (Negative) 05/09/22 21:12 UF Heparin High Dose 0 % Release 05/09/22 21:12 JEANNA UFH Low Dose 0.1 0 % Release 05/09/22 21:12 JEANNA UFH Low Dose 0.5 0 % Release 05/09/22 21:12 Coronavirus (PCR) Negative (Negative) 05/03/22 11:30 Hepatitis A IgM Ab Non-reactive (NonReactive) 04/19/22 04:53 Hep Bs Antigen Non-reactive (Negative) 04/19/22 04:53 Hep B Core IgM Ab Non-reactive (NonReactive) 04/19/22 04:53 Hepatitis C Antibody Non-reactive (NonReactive) 04/19/22 04:53 Blood Type A POSITIVE 05/12/22 06:07 Antibody Screen Negative 05/12/22 06:07 Crossmatch See Detail 05/12/22 06:07 Cleary/IV: Voiding Method Diaper Active Medications - Current Medications Current Medications: Generic Name Dose Route Start Last Admin Trade Name Freq PRN Reason Stop Dose Admin Acetaminophen 650 mg 04/22/22 20:12 05/12/22 23:29 Acetaminophen 325 Mg/10.15 Ml Oral Liqd Unit Dose PO 650 mg Q6H PRN Administration Pain MILD(1-3)/Fever >100.5/DRAKE Albumin Human 25 gm 04/21/22 13:00 04/22/22 16:31 Albumin Human 25% (25 Gm/100 Ml) Inj IV 25 gm BIANCA PRN Administration Hypotension Albuterol 2.5 mg 04/21/22 08:30 04/24/22 16:51 Albuterol 2.5 Mg/3 Ml Nebu IH 2.5 mg Q3HRT PRN Administration Shortness Of Breath Albuterol/Ipratropium 1 ampul 04/21/22 14:00 05/15/22 08:58 Ipratropium/Albuterol Sulfate 3 Ml Ampul.Neb IH 1 ampul TIDRT CONNOR Administration Docusate Sodium 100 mg 05/01/22 22:00 05/15/22 10:11 Docusate Sodium 100 Mg/10 Ml Oral Liqd FEEDTUBE Not Given BID CONNOR Epoetin Lb-epbx 20,000 unit 04/23/22 12:00 05/14/22 01:34 Epoetin Lb-Epbx 20,000 Unit/1 Ml Vial IV 20,000 unit BIANCA PRN Administration HEMODIALYSIS Fentanyl 50 mcg 05/03/22 10:29 05/05/22 12:23 Fentanyl 100 Mcg/2 Ml Inj IV 25 mcg Q10MIN PRN Administration ANALGESIA Sodium Chloride 100 mls @ 999 mls/hr 04/22/22 09:12 Nacl 0.9% IV BIANCA PRN Hypotension Fentanyl Citrate 2,000 mcg in 100 mls @ 2.722 mls/hr 05/03/22 11:00 Fentanyl Drip Premix IV TITR CONNOR Protocol 1 MCG/KG/HR Vasopressin 20 unit/ Sodium 101 mls @ 9.09 mls/hr 05/04/22 00:30 05/06/22 11:21 Chloride IV 0 units/min TITR CONNOR 0 mls/hr Infusion 0.03 UNITS/MIN NORepinephrine/NS 8 MG-250 ML 8 mg in 250 mls @ 3.75 mls/hr 05/11/22 21:23 05/13/22 12:21 Norepinephrine/Ns 8 Mg-250 Ml (Double Conc) IV 0 mcg/min TITRATE CONNOR 0 mls/hr Titration Protocol 2 MCG/MIN Lansoprazole 30 mg 04/23/22 10:00 05/15/22 10:10 Lansoprazole 30 Mg Solutab FEEDTUBE 30 mg QDAY CONNOR Administration Lorazepam 0.5 mg 04/25/22 09:59 Lorazepam 0.5 Mg Tab FEEDTUBE QDAY PRN Anxiety Memantine 5 mg 04/25/22 10:00 05/15/22 10:14 Memantine 5 Mg Tab FEEDTUBE 5 mg BID CONNOR Administration Metoclopramide HCl 5 mg 04/19/22 09:55 Metoclopramide 10 Mg/2 Ml Inj IV Q6H PRN Nausea And Vomiting Midodrine 20 mg 04/26/22 14:00 05/15/22 10:10 Midodrine 10 Mg Tab FEEDTUBE 20 mg TID CONNOR Administration Naloxone HCl 0.1 mg 04/19/22 09:55 Naloxone 0.4 Mg/1 Ml Inj IV Q2MIN PRN Res Rate </= 8 or 02 SAT < 92% Polyethylene Glycol 17 gm 05/03/22 10:00 05/15/22 10:10 Polyethylene Glycol 3350 17 Gm Powder FEEDTUBE Not Given QDAY CONNOR Risperidone 0.5 mg 04/25/22 11:00 05/15/22 10:10 Risperidone 1 Mg Tab FEEDTUBE 0.5 mg BID CONNOR Administration Scopolamine 1 each 05/02/22 10:00 05/14/22 09:25 Scopolamine Transdermal Patch 72 Hr TD 1 each Q3D CONNOR Administration Senna 17.2 mg 04/23/22 10:00 05/15/22 10:11 Sennosides 8.6 Mg Tab FEEDTUBE Not Given BID CONNOR Sodium Chloride 10 ml 04/19/22 12:00 05/15/22 10:10 Sodium Chloride 0.9% 10 Ml Flush Syringe IV 10 ml BID CONNOR Administration Sodium Chloride 10 ml 04/19/22 11:19 Sodium Chloride 0.9% 10 Ml Flush Syringe IV PRN PRN LINE FLUSH Valproic Acid 750 mg 04/22/22 22:00 05/15/22 10:10 Valproic Acid 250 Mg/5 Ml Oral Liqd FEEDTUBE 750 mg BID CONNOR Administration Nutrition/Malnutrition Assess - Dietary Evaluation Nutrition/Malnutrition Findings: Nutrition Notes Start: 04/19/22 17:39 Freq: Status: Active Protocol: Document 05/12/22 14:43 SHILA (Rec: 05/12/22 14:47 SHILA [id number]) Nutrition Notes Initial or Follow up Reassessment Current Diagnosis CKD (stage V CKD),Sepsis, Respiratory Failure Other Pertinent Diagnosis Neurogenic dysphagia, metabolic encephalopathy, vascular dementia Current Diet NPO Labs/Tests Na 133 BUN 29 Cr 2.4 Pertinent Medications Reviewed Height 5 ft 2 in Weight 54.43 kg [place] Body Weight (kg) 50.00 BMI 21.9 Weight Status Appropriate Subjective/Other Information Pt NPO for planned procedure today (trach placement), however, pt not hemodynamically stable enough for anesthesia. Trach may be placed on 05/15. Last BM documented on 05/07. Pt remains on vent support. Burn Absent Trauma Absent #1 Nutrition Diagnosis Swallowing difficulty Diagnosis Progress(for reassessment Continues documentation) Is patient on ventilator? Yes Is Patient Ambulatory and/or Out of Bed No REE-([facility]-confined to bed) 1244.844 Calculation Used for Recommendations [facility] Additional Notes Pro needs >1.2g/kg: >65g/day Fluid needs 1-1.5L/day Nutrition Intervention Nutrition Support: Resume Nepro at 30ml/hr with 130ml water flush q4h. Kcal 1,296 Protein (gm) 58 Carbohydrates (gm) 116 Fat (gm) 69 Fluid (mL) 523 Fiber (gm) 9 Goal #1 Resume TF to meet nutrient needs Follow-Up By: 05/15/22 Additional Comments F/U: Trach placement, TF re- start, vent status, BM <AMAURY KIM - Last Filed: 05/23/22 08:01> History Interval history: I saw and evaluated the patient. Discussed with the nurse practitioner and agree with their findings and plan as documented in this note. Hospitalist Physical - Constitutional Vitals: Temp Pulse Resp BP Pulse Ox 98.1 F 91 H 14 115/56 98 08/30/22 16:00 05/16/22 16:00 05/16/22 16:00 05/16/22 16:00 05/16/22 16:00 HEART Score - HEART Score Troponin: Troponin T 0.415 ng/mL (0.00-0.029) H* 04/19/22 04:53 Results - Labs CBC & Chem 7: 05/14/22 05:36 05/15/22 11:13 Labs: Laboratory Last Values WBC 13.4 K/mm3 (4.5-11.0) H 05/14/22 05:36 RBC 2.83 M/mm3 (3.65-5.03) L 05/14/22 05:36 Hgb 8.1 gm/dl (10.1-14.3) L 05/14/22 05:36 Hct 25.1 % (30.3-42.9) L 05/14/22 05:36 MCV 89 fl (79-97) 05/14/22 05:36 MCH 29 pg (28-32) 05/14/22 05:36 MCHC 32 % (30-34) 05/14/22 05:36 RDW 15.1 % (13.2-15.2) 05/14/22 05:36 Plt Count 260 K/mm3 (140-440) 05/14/22 05:36 Lymph % (Auto) 7.8 % (13.4-35.0) L 05/12/22 04:11 [place] % (Auto) 14.2 % (0.0-7.3) H 05/12/22 04:11 Eos % (Auto) 0.5 % (0.0-4.3) 05/12/22 04:11 Baso % (Auto) 0.4 % (0.0-1.8) 05/12/22 04:11 Lymph # (Auto) 1.4 K/mm3 (1.2-5.4) 05/12/22 04:11 [place] # (Auto) 2.5 K/mm3 (0.0-0.8) H 05/12/22 04:11 Eos # (Auto) 0.1 K/mm3 (0.0-0.4) 05/12/22 04:11 Baso # (Auto) 0.1 K/mm3 (0.0-0.1) 05/12/22 04:11 Add Manual Diff Complete 05/05/22 04:20 Total Counted 100 05/05/22 04:20 Seg Neutrophils % 77.1 % (40.0-70.0) H 05/12/22 04:11 Seg Neuts % (Manual) 86.0 % (40.0-70.0) H 05/05/22 04:20 Band Neutrophils % 3.0 % 05/05/22 04:20 Lymphocytes % (Manual) 4.0 % (13.4-35.0) L 05/05/22 04:20 Reactive Lymphs % (Man) 0 % 05/05/22 04:20 Monocytes % (Manual) 6.0 % (0.0-7.3) 05/05/22 04:20 Eosinophils % (Manual) 1.0 % (0.0-4.3) 05/05/22 04:20 Basophils % (Manual) 0 % (0.0-1.8) 05/05/22 04:20 Metamyelocytes % 0 % 05/05/22 04:20 Myelocytes % 0 % 05/05/22 04:20 Promyelocytes % 0 % 05/05/22 04:20 Blast Cells % 0 % 05/05/22 04:20 Nucleated RBC % 1.0 % (0.0-0.9) H 05/05/22 04:20 Seg Neutrophils # 13.9 K/mm3 (1.8-7.7) H 05/12/22 04:11 Seg Neutrophils # Man 11.0 K/mm3 (1.8-7.7) H 05/05/22 04:20 Band Neutrophils # 0.4 K/mm3 05/05/22 04:20 Lymphocytes # (Manual) 0.5 K/mm3 (1.2-5.4) L 05/05/22 04:20 Abs React Lymphs (Man) 0.0 K/mm3 05/05/22 04:20 Monocytes # (Manual) 0.8 K/mm3 (0.0-0.8) 05/05/22 04:20 Eosinophils # (Manual) 0.1 K/mm3 (0.0-0.4) 05/05/22 04:20 Basophils # (Manual) 0.0 K/mm3 (0.0-0.1) 05/05/22 04:20 Metamyelocytes # 0.0 K/mm3 05/05/22 04:20 Myelocytes # 0.0 K/mm3 05/05/22 04:20 Promyelocytes # 0.0 K/mm3 05/05/22 04:20 Blast Cells # 0.0 K/mm3 05/05/22 04:20 WBC Morphology Not Reportable 05/05/22 04:20 Hypersegmented Neuts Not Reportable 05/05/22 04:20 Hyposegmented Neuts Not Reportable 05/05/22 04:20 Hypogranular Neuts Not Reportable 05/05/22 04:20 Smudge Cells Not Reportable 05/05/22 04:20 Toxic Granulation Not Reportable 05/05/22 04:20 Toxic Vacuolation Not Reportable 05/05/22 04:20 Dohle Bodies Not Reportable 05/05/22 04:20 Pelger-Huet Anomaly Not Reportable 05/05/22 04:20 Ubaldo Rods Not Reportable 05/05/22 04:20 Platelet Estimate Consistent w auto 05/05/22 04:20 Clumped Platelets Not Reportable 05/05/22 04:20 Plt Clumps, EDTA Not Reportable 05/05/22 04:20 Large Platelets Not Reportable 05/05/22 04:20 Giant Platelets Not Reportable 05/05/22 04:20 Platelet Satelliting Not Reportable 05/05/22 04:20 Plt Morphology Comment Not Reportable 05/05/22 04:20 RBC Morphology Not Reportable 05/05/22 04:20 Dimorphic RBCs Not Reportable 05/05/22 04:20 Polychromasia Not Reportable 05/05/22 04:20 Hypochromasia 2+ 05/05/22 04:20 Poikilocytosis Not Reportable 05/05/22 04:20 Anisocytosis 1+ 05/05/22 04:20 Microcytosis Not Reportable 05/05/22 04:20 Macrocytosis Not Reportable 05/05/22 04:20 Spherocytes Not Reportable 05/05/22 04:20 Pappenheimer Bodies Not Reportable 05/05/22 04:20 Sickle Cells Not Reportable 05/05/22 04:20 Target Cells Not Reportable 05/05/22 04:20 Tear Drop Cells Not Reportable 05/05/22 04:20 Ovalocytes Not Reportable 05/05/22 04:20 Helmet Cells Not Reportable 05/05/22 04:20 Rangel-Freistatt Bodies Not Reportable 05/05/22 04:20 [place]wood Rings Not Reportable 05/05/22 04:20 Elida Cells Not Reportable 05/05/22 04:20 Bite Cells Not Reportable 05/05/22 04:20 Crenated Cell Not Reportable 05/05/22 04:20 Elliptocytes Not Reportable 05/05/22 04:20 Acanthocytes (Spur) Not Reportable 05/05/22 04:20 Rouleaux Not Reportable 05/05/22 04:20 Hemoglobin C Crystals Not Reportable 05/05/22 04:20 Schistocytes Not Reportable 05/05/22 04:20 Malaria parasites Not Reportable 05/05/22 04:20 Torrey Bodies Not Reportable 05/05/22 04:20 Hem Pathologist Commnt No 05/05/22 04:20 PT 15.4 Sec. (12.2-14.9) H 05/12/22 04:11 INR 1.09 (0.87-1.13) 05/12/22 04:11 APTT 39.4 Sec. (24.2-36.6) H 05/03/22 04:24 Heparin Anti-Xa Level < 0.10 U.I./ml (0.3-0.7) L 04/24/22 10:20 Heparin Anti-Xa, Unfract Negative (Negative) 05/09/22 21:12 ABG pH 7.486 pH Units (7.350-7.450) H 05/16/22 04:30 ABG pCO2 40.0 mm Hg 05/16/22 04:30 ABG pO2 89.9 mm Hg (80.0-90.0) 05/16/22 04:30 ABG HCO3 29.5 mmol/L (20.0-26.0) H 05/16/22 04:30 ABG O2 Saturation 97.4 % (95.0-99.0) 05/16/22 04:30 ABG O2 Content 11.4 (0.0-44) 05/16/22 04:30 ABG Base Excess 5.7 mmol/L (-2.0-3.0) H 05/16/22 04:30 ABG Hemoglobin 8.4 gm/dl (12.0-16.0) L 05/16/22 04:30 ABG Carboxyhemoglobin 1.7 % (0.0-5.0) 05/16/22 04:30 ABG Methemoglobin 0.6 % (0.0-1.5) 05/16/22 04:30 Oxyhemoglobin 95.2 % (95.0-99.0) 05/16/22 04:30 FiO2 30 % 05/16/22 04:30 Sodium 133 mmol/L (137-145) L 05/15/22 11:13 Potassium 4.2 mmol/L (3.6-5.0) 05/15/22 11:13 Chloride 95.8 mmol/L (98-107) L 05/15/22 11:13 Carbon Dioxide 30 mmol/L (22-30) 05/15/22 11:13 Anion Gap 11 mmol/L 05/15/22 11:13 BUN 36 mg/dL (7-17) H 05/15/22 11:13 Creatinine 3.0 mg/dL (0.6-1.2) H 05/15/22 11:13 Estimated GFR 16 ml/min 05/15/22 11:13 BUN/Creatinine Ratio 12 % 05/15/22 11:13 Glucose 110 mg/dL (65-100) H 05/15/22 11:13 POC Glucose 161 mg/dL (70-105) H 05/16/22 05:19 Lactic Acid 1.60 mmol/L (0.7-2.0) 04/19/22 07:14 Calcium 8.5 mg/dL (8.4-10.2) 05/15/22 11:13 Phosphorus 3.00 mg/dL (2.5-4.5) D 05/09/22 04:25 Magnesium 1.80 mg/dL (1.7-2.3) 05/09/22 04:25 Total Bilirubin 0.30 mg/dL (0.1-1.2) 05/12/22 06:00 AST 24 units/L (5-40) 05/12/22 06:00 ALT 7 units/L (7-56) 05/12/22 06:00 Alkaline Phosphatase 332 units/L (35-129) H 05/12/22 06:00 Ammonia 25.0 umol/L (25-60) 04/19/22 04:53 Lactate Dehydrogenase 142 units/L (91-180) 05/09/22 04:25 Troponin T 0.415 ng/mL (0.00-0.029) H* 04/19/22 04:53 Total Protein 4.8 g/dL (6.3-8.2) L 05/12/22 06:00 Albumin 2.0 g/dL (3.9-5) L 05/12/22 06:00 Albumin/Globulin Ratio 0.7 % 05/12/22 06:00 Serotonin Release Assay See scanned result 05/09/22 21:12 Procalcitonin 42.42 ng/mL (<0.15) 05/05/22 04:20 TSH 1.700 mlU/mL (0.270-4.200) 04/19/22 04:53 Free T4 0.28 ng/dL (0.76-1.46) L 04/19/22 04:53 Total Cortisol 24.4 mcg/dL () 04/27/22 04:45 Fluid Type Pleural 05/09/22 Unknown Fluid Color Yellow 05/09/22 Unknown Fluid Appearance Clear 05/09/22 Unknown Fluid WBC 21 /mm3 05/09/22 Unknown Fluid RBC 12 /mm3 05/09/22 Unknown Fluid Seg Neutrophils 60.0 % 05/09/22 Unknown Fluid Lymphocytes 11.0 % 05/09/22 Unknown Fluid Reactive Lymphs Not Reportable 05/09/22 Unknown Fluid Monocytes 29.0 % 05/09/22 Unknown Fluid Eosinophils Not Reportable 05/09/22 Unknown Fluid Basophils Not Reportable 05/09/22 Unknown Fluid Total Protein < 3.0 (15.0-45.0) L 05/09/22 Unknown Fluid LDH 67 05/09/22 Unknown Random Vancomycin 20.0 ug/mL (0-40.0) 05/11/22 03:56 Heparin-induced Plt Ab Negative (Negative) 05/09/22 21:12 UF Heparin High Dose 0 % Release 05/09/22 21:12 JEANNA UFH Low Dose 0.1 0 % Release 05/09/22 21:12 JEANNA UFH Low Dose 0.5 0 % Release 05/09/22 21:12 Coronavirus (PCR) Negative (Negative) 05/03/22 11:30 Hepatitis A IgM Ab Non-reactive (NonReactive) 04/19/22 04:53 Hep Bs Antigen Non-reactive (Negative) 04/19/22 04:53 Hep B Core IgM Ab Non-reactive (NonReactive) 04/19/22 04:53 Hepatitis C Antibody Non-reactive (NonReactive) 04/19/22 04:53 Blood Type A POSITIVE 05/12/22 06:07 Antibody Screen Negative 05/12/22 06:07 Crossmatch See Detail 05/12/22 06:07 Cleary/IV: Voiding Method Diaper Nutrition/Malnutrition Assess - Dietary Evaluation Nutrition/Malnutrition Findings: Nutrition Notes Start: 04/19/22 17:39 Freq: Status: Discharge Protocol: Document 05/15/22 16:15 SHILA (Rec: 05/15/22 16:18 NHALL [id number]) Nutrition Notes Current Diagnosis CKD (stage V CKD),Sepsis, Respiratory Failure Other Pertinent Diagnosis Neurogenic dysphagia, metabolic encephalopathy, vascular dementia Current Diet TF - Nepro at 30ml/hr Labs/Tests Na 133 BUN 36 Cr 3 Pertinent Medications Reviewed Height 5 ft 2 in Weight 54.43 kg [place] Body Weight (kg) 50.00 BMI 21.9 Weight Status Appropriate Subjective/Other Information Pt remains on vent support; trach placed today. Observed Nepro infusing at 30ml/hr. RN reports BM x 2 today. Percent of energy/protein needs met: 104% energy 90% pro Burn Absent Trauma Absent #1 Nutrition Diagnosis Swallowing difficulty Diagnosis Progress(for reassessment Continues documentation) Is patient on ventilator? Yes Is Patient Ambulatory and/or Out of Bed No REE-([facility]-confined to bed) 1244.844 Calculation Used for Recommendations [facility] Additional Notes Pro needs >1.2g/kg: >65g/day Fluid needs 1-1.5L/day Nutrition Intervention Nutrition Support: Continue Nepro at 30ml/hr with 130ml water flush q4h. Kcal 1,296 Protein (gm) 58 Carbohydrates (gm) 116 Fat (gm) 69 Fluid (mL) 523 Fiber (gm) 9 Goal #1 TF tolerance Goal #2 TF to meet at least 75% energy and pro needs Follow-Up By: 05/23/22 Additional Comments F/U: stable TF, vent status, BM
--- NOTE | 2022-05-15 13:49 | Anesthesia Day of Surgery ---
Anesthesia Day of Surgery - Day of Surgery Patient Examined: Yes Patient H&P Reviewed: Yes Patient is NPO: Yes
--- NOTE | 2022-05-15 13:56 | Post Anesthesia Evaluation ---
- Post Anesthesia Evaluation Patient Participated: No (sedated, intubated) Airway Patent: Yes Stable Respiratory Function: Yes Nausea/Vomiting: No (unable to assess) Temp > 96.8F: Yes Pain Manageable: Yes (unable to assess) Adequeate Hydration: Yes Anesthesia Complications: No Patient on Ventilator: Yes Other Comments: Transported to ICU by [employer] and [employer] with VS monitored and respirations assisted via AMBU. Handoff to ICU team at bedside.
--- NOTE | 2022-05-15 14:08 | Operative Report ---
Operative Report Operative Report: Date:05/15/2022 Surgeon:Otis Normna MD Pre-op diagnosis: respiratory failure Post-op diagnosis: same as pre-op Procedure:Fiber optic bronchoscopy Anesthesia:GETA Indication: Patient is a 66 F. Patient intubated and sedated therefore unable to provided detail history. The patient has been unable to be weaned from the ventilator and therefore tracheostomy with assistance of fiberoptic bronchoscopy is indicated along with PEG tube placement. All risks were discussed with the family, and consent obtained. Procedure in detail: The patient was identified in the hospital bed in the ICU and brought down to the OR. After anesthesia was induced, the fiberoptic bronchoscope was passed through the endotracheal tube using an adapter. The trachea and tena were visualized, there was a normal appearance of the mucosa and no debris or fluid was seen. At this point, Dr. Russell who performed the tr acheostomy portion of the procedure (please see separate operative note), asked for the endotracheal tube to be withdrawn slowly. The upper trachea was visualized and appeared normal. At this point, Dr. Russell placed the tracheostomy tube under direct visualization by fiberoptic bronchoscopy. Please see separate operative note for more details on Tracheostomy placement. Once the tracheostomy tube was placed, the bronchoscope was withdrawn from the endotracheal tube and placed through the tracheostomy tube. The tracheostomy tube appeared to be in good position approximately 3 cm above the tena. The bronchoscope was then withdrawn. The procedure was terminated and the patient was returned to ICU in stable condition. Complication: none immediate
--- NOTE | 2022-05-15 14:33 | XRay Report ---
CHEST 1 VIEW 05/15/2022 2:12 PM INDICATION / CLINICAL INFORMATION: trach. COMPARISON: 05/10/2022 FINDINGS: SUPPORT DEVICES: Tracheostomy tube terminates approximately 4.5 cm from the tena. Redemonstrated le ft upper extremity vascular stent. HEART / MEDIASTINUM: No significant abnormality. LUNGS / PLEURA: Small left pleural effusion. There is hazy interstitial markings. No pneumothorax. ADDITIONAL FINDINGS: No significant additional findings. IMPRESSION: 1. Tracheostomy tube terminates 4.5 cm tena. 2. Hazy interstitial markings which can be seen with atypical infectious process versus pulmonary claudy ma. 3. Left pleural effusion. Signer Name: Brandyn Newberry DO Signed: 05/15/2022 2:28 PM Workstation Name: [place]
[2022-05-16] MEDS: NORepinephrine/NS 8 MG-250 ML 8 MG/250 ML INFUS..BTL IV SCH (02:38)
[2022-05-16 05:09] LABS: ABG Base Excess 5.7 mmol/L (-2.0-3.0); ABG HCO3 29.5 mmol/L (20.0-26.0); ABG Methemoglobin 0.6 % (0.0-1.5); ABG Oxygen Saturation 97.4 % (95.0-99.0); ABG PH 7.486 pH Units (7.350-7.450); ABG PO2 89.9 mm Hg (80.0-90.0)
[2022-05-16 07:30] LABS: LDH,Body Fluid 67; Total Protein,Body Fluid < 3.0 (15.0-45.0)
[2022-05-16] MEDS: IPRATROPIUM/ALBUTEROL SULFATE 3 ML AMPUL.NEB IH SCH ×2 (08:44→13:46)
--- NOTE | 2022-05-16 08:49 | Progress Note ---
Assessment and Plan Acute hypoxemic respiratory failure on MVS s/p trach Atelectasis with mediastinal shift s/p bronch Acute on Chronic Hypotension Acute on Chronic Metabolic Encephalopathy Bipolar disorder Schizophrenia, ESRD on hemodialysis Anemia of chronic disease Type 2 NSTEMI GERD Subclinical Hypothyroidism Moderate protein caloric malnutrition s/p tracheostomy VAP bundle addressed, Continue with HD, optimize UF Possible transfer to LTACH today -Titrate supplemental oxygen to keep SpO2 90-92% -CXR, ABG as clinically indicated - Aspiration precautions, HOB >40 - continue bronchodilators with pulmonary hygiene per RT - wean per pulmonary driven protocols otherwise - enteral nutrition at goal rate as tolerated - femoral CVL, left - Albumin 25 gms of 25% solution prn with dialysis - continue HD/UF per nephrology prescription for toxin and volume clearance - continue accuchecks with glycemic control per SSI (While critically ill target blood glucose of 140-180 mg/dL; avoid hypoglycemia) - avoid nephrotoxins, renally dose all medications - continue to avoid benzodiazepines, reduce the possibility of delirium - prn analgesia per CPOT score - Maintenance of sleep-wake cycle, avoid delirium - Stress ulcer (Lansoprazole) -VTE prophylaxis - mobility protocol, off loading and frequent turning per facility protocol to prevent pressure ulcers - Monitor hemodynamics closely - continue other care per attending / other consultants CONDITION: CRITICAL PROGNOSIS: GUARDED CODE STATUS: FULL CODE The high probability of a clinically significant, sudden or life-threatening deterioration of the [respiratory, cardiovascular, renal & neurologic] system(s) required my full and direct attention, intervention and personal management. The aggregate critical care time was [33] minutes without overlap. Time includes spent on; [x] Data Review and interpretation [x] Patient assessment and monitoring of vital signs [x] Documentation [x] Medication orders and management Subjective Date of service: 05/16/22 Principal diagnosis: Neurogenic Dysphagia Interval history: Seen and examined at bedside; 24hour events reviewed; nursing and respiratory care staff consulted; no adverse overnight events reported to me; resting in bed; off vasopressors; No fevers, no vomiting, no diarrhea Remains on MVS, orally intubated. Failed PSV trials- secondary to tachypnea and tachycardia. s/p trach placement Objective Vital Signs - 12hr 05/15/22 05/15/22 05/15/22 21:00 21:32 22:00 Temperature Pulse Rate 86 82 92 H Pulse Rate [ 83 From Monitor] Respiratory 14 14 12 Rate Blood Pressure 98/51 93/45 O2 Sat by Pulse 100 100 100 Oximetry O2 Sat by Pulse Oximetry [ Assessment] 05/15/22 05/15/22 05/16/22 23:00 23:34 00:00 Temperature Pulse Rate 83 83 89 Pulse Rate [ From Monitor] Respiratory 14 14 14 Rate Blood Pressure 89/43 89/43 98/40 O2 Sat by Pulse 100 100 100 Oximetry O2 Sat by Pulse Oximetry [ Assessment] 05/16/22 05/16/22 05/16/22 00:28 00:30 01:00 Temperature Pulse Rate 87 90 90 Pulse Rate [ From Monitor] Respiratory 16 Rate Blood Pressure 98/40 97/46 O2 Sat by Pulse 100 100 Oximetry O2 Sat by Pulse 100 Oximetry [ Assessment] 05/16/22 05/16/22 05/16/22 01:20 02:00 02:44 Temperature 97.9 F Pulse Rate 90 93 H 91 H Pulse Rate [ 83 From Monitor] Respiratory 14 14 14 Rate Blood Pressure 83/35 O2 Sat by Pulse 99 100 99 Oximetry O2 Sat by Pulse Oximetry [ Assessment] 05/16/22 05/16/22 05/16/22 03:00 03:10 03:30 Temperature 98.0 F Pulse Rate 89 89 Pulse Rate [ From Monitor] Respiratory 14 14 Rate Blood Pressure 92/46 O2 Sat by Pulse 99 99 Oximetry O2 Sat by Pulse Oximetry [ Assessment] 05/16/22 05/16/22 05/16/22 04:00 05:00 05:23 Temperature Pulse Rate 92 H 88 89 Pulse Rate [ From Monitor] Respiratory 14 14 14 Rate Blood Pressure 106/50 110/49 O2 Sat by Pulse 100 100 99 Oximetry O2 Sat by Pulse Oximetry [ Assessment] 05/16/22 05/16/22 05/16/22 06:00 07:00 07:25 Temperature 98.2 F Pulse Rate 99 H 103 H Pulse Rate [ From Monitor] Respiratory 14 14 Rate Blood Pressure 113/57 115/57 O2 Sat by Pulse 98 99 Oximetry O2 Sat by Pulse Oximetry [ Assessment] 05/16/22 08:45 Temperature Pulse Rate 113 H Pulse Rate [ From Monitor] Respiratory Rate Blood Pressure 115/61 O2 Sat by Pulse 99 Oximetry O2 Sat by Pulse Oximetry [ Assessment] Constitutional: no acute distress, asleep, other ( Resting assist control mechanical ventilation.) Eyes: non-icteric ENT: oropharynx moist, other (Tracheostomy) Neck: supple, no lymphadenopathy, no JVD Effort: mildly labored Ascultation: Bilateral: clear, diminished breath sounds, rales, rhonchi Percussion: Bilateral: not dull Cardiovascular: regular rate and rhythm, other (S1,S2) Gastrointestinal: normoactive bowel sounds, soft, non-tender, non-distended, other (PEG) Integumentary: normal Extremities: no cyanosis, pulses normal, no ischemia or petechiae, edema (bilateral upper extremities) Neurologic: non-focal exam (grossly), pupils equal and round, other (sedated resting on mechanical ventilation.) Psychiatric: other (Sedated, sleeping. Not responding to verbal stimuli.) CBC and BMP: 05/14/22 05:36 05/15/22 11:13 ABG, PT/INR, D-dimer: ABG ABG pH 7.486 pH Units (7.350-7.450) H 05/16/22 04:30 ABG pCO2 40.0 mm Hg 05/16/22 04:30 ABG pO2 89.9 mm Hg (80.0-90.0) 05/16/22 04:30 ABG O2 Saturation 97.4 % (95.0-99.0) 05/16/22 04:30 PT/INR, D-dimer PT 15.4 Sec. (12.2-14.9) H 05/12/22 04:11 INR 1.09 (0.87-1.13) 05/12/22 04:11 Abnormal lab findings: Abnormal Labs 04/19/22 04/19/22 04/19/22 04:53 04:53 04:53 WBC RBC 3.06 L Hgb 8.6 L Hct 28.0 L RDW 16.3 H Plt Count Lymph % (Auto) [place] % (Auto) 11.3 H Lymph # (Auto) [place] # (Auto) Seg Neutrophils % Seg Neuts % (Manual) Lymphocytes % (Manual) Nucleated RBC % Seg Neutrophils # Seg Neutrophils # Man Lymphocytes # (Manual) PT INR APTT Heparin Anti-Xa Level ABG pH ABG pO2 ABG HCO3 ABG Base Excess ABG Hemoglobin Oxyhemoglobin Sodium Potassium 5.1 H Chloride Carbon Dioxide 21 L BUN 94 H Creatinine 6.3 H Glucose POC Glucose Phosphorus Magnesium Alkaline Phosphatase Troponin T 0.415 H* Total Protein Albumin 2.7 L Free T4 0.28 L Fluid Total Protein Crossmatch 04/19/22 04/19/22 04/20/22 19:40 19:40 05:30 WBC 4.1 L RBC 2.97 L Hgb 8.5 L 8.2 L Hct 27.8 L 27.1 L RDW 17.0 H Plt Count Lymph % (Auto) [place] % (Auto) 15.2 H Lymph # (Auto) 1.1 L [place] # (Auto) Seg Neutrophils % Seg Neuts % (Manual) Lymphocytes % (Manual) Nucleated RBC % Seg Neutrophils # Seg Neutrophils # Man Lymphocytes # (Manual) PT 17.9 H INR 1.28 H APTT 199.1 H* Heparin Anti-Xa Level ABG pH ABG pO2 ABG HCO3 ABG Base Excess ABG Hemoglobin Oxyhemoglobin Sodium Potassium Chloride Carbon Dioxide BUN Creatinine Glucose POC Glucose Phosphorus Magnesium Alkaline Phosphatase Troponin T Total Protein Albumin Free T4 Fluid Total Protein Crossmatch 04/20/22 04/20/22 04/21/22 05:30 18:23 00:29 WBC RBC Hgb Hct RDW Plt Count Lymph % (Auto) [place] % (Auto) Lymph # (Auto) [place] # (Auto) Seg Neutrophils % Seg Neuts % (Manual) Lymphocytes % (Manual) Nucleated RBC % Seg Neutrophils # Seg Neutrophils # Man Lymphocytes # (Manual) PT INR APTT Heparin Anti-Xa Level 0.17 L ABG pH ABG pO2 ABG HCO3 ABG Base Excess ABG Hemoglobin Oxyhemoglobin Sodium Potassium Chloride Carbon Dioxide 21 L BUN 95 H Creatinine 6.6 H Glucose 139 H POC Glucose Phosphorus Magnesium 2.60 H Alkaline Phosphatase Troponin T Total Protein Albumin 2.4 L Free T4 Fluid Total Protein Crossmatch 04/21/22 04/21/22 04/22/22 04:00 04:00 03:45 WBC RBC 2.74 L Hgb 7.7 L Hct 24.7 L RDW 16.6 H Plt Count Lymph % (Auto) [place] % (Auto) Lymph # (Auto) [place] # (Auto) Seg Neutrophils % Seg Neuts % (Manual) Lymphocytes % (Manual) Nucleated RBC % Seg Neutrophils # Seg Neutrophils # Man Lymphocytes # (Manual) PT INR APTT Heparin Anti-Xa Level < 0.10 L ABG pH ABG pO2 ABG HCO3 ABG Base Excess ABG Hemoglobin Oxyhemoglobin Sodium 133 L Potassium Chloride Carbon Dioxide 20 L BUN 89 H Creatinine 6.6 H Glucose 131 H POC Glucose Phosphorus 6.40 H Magnesium 2.50 H Alkaline Phosphatase Troponin T Total Protein Albumin Free T4 Fluid Total Protein Crossmatch 04/22/22 04/22/22 04/22/22 03:45 12:13 14:30 WBC RBC Hgb Hct RDW Plt Count Lymph % (Auto) [place] % (Auto) Lymph # (Auto) [place] # (Auto) Seg Neutrophils % Seg Neuts % (Manual) Lymphocytes % (Manual) Nucleated RBC % Seg Neutrophils # Seg Neutrophils # Man Lymphocytes # (Manual) PT INR APTT Heparin Anti-Xa Level 0.11 L 0.11 L ABG pH ABG pO2 ABG HCO3 ABG Base Excess ABG Hemoglobin Oxyhemoglobin Sodium 136 L Potassium Chloride Carbon Dioxide 18 L BUN 90 H Creatinine 6.3 H Glucose 121 H POC Glucose Phosphorus 6.50 H Magnesium Alkaline Phosphatase Troponin T Total Protein Albumin Free T4 Fluid Total Protein Crossmatch 04/22/22 04/23/22 04/23/22 23:08 02:17 04:10 WBC RBC Hgb 7.3 L Hct 23.3 L RDW Plt Count Lymph % (Auto) [place] % (Auto) Lymph # (Auto) [place] # (Auto) Seg Neutrophils % Seg Neuts % (Manual) Lymphocytes % (Manual) Nucleated RBC % Seg Neutrophils # Seg Neutrophils # Man Lymphocytes # (Manual) PT INR APTT Heparin Anti-Xa Level 0.14 L ABG pH ABG pO2 ABG HCO3 ABG Base Excess ABG Hemoglobin Oxyhemoglobin Sodium Potassium Chloride Carbon Dioxide BUN Creatinine Glucose POC Glucose 153 H Phosphorus Magnesium Alkaline Phosphatase Troponin T Total Protein Albumin Free T4 Fluid Total Protein Crossmatch 04/23/22 04/23/22 04/23/22 04:10 06:09 23:22 WBC RBC Hgb Hct RDW Plt Count Lymph % (Auto) [place] % (Auto) Lymph # (Auto) [place] # (Auto) Seg Neutrophils % Seg Neuts % (Manual) Lymphocytes % (Manual) Nucleated RBC % Seg Neutrophils # Seg Neutrophils # Man Lymphocytes # (Manual) PT INR APTT Heparin Anti-Xa Level ABG pH ABG pO2 ABG HCO3 ABG Base Excess ABG Hemoglobin Oxyhemoglobin Sodium Potassium Chloride Carbon Dioxide BUN 36 H Creatinine 3.4 H Glucose 131 H POC Glucose 141 H 114 H Phosphorus Magnesium Alkaline Phosphatase Troponin T Total Protein Albumin Free T4 Fluid Total Protein Crossmatch 04/24/22 04/24/22 04/24/22 02:10 04:00 04:00 WBC RBC 2.48 L Hgb 7.1 L Hct 22.6 L RDW 16.9 H Plt Count Lymph % (Auto) [place] % (Auto) Lymph # (Auto) [place] # (Auto) Seg Neutrophils % Seg Neuts % (Manual) Lymphocytes % (Manual) Nucleated RBC % Seg Neutrophils # Seg Neutrophils # Man Lymphocytes # (Manual) PT INR APTT Heparin Anti-Xa Level 0.12 L ABG pH ABG pO2 ABG HCO3 ABG Base Excess ABG Hemoglobin Oxyhemoglobin Sodium 134 L Potassium Chloride Carbon Dioxide BUN 42 H Creatinine 3.9 H Glucose 141 H POC Glucose Phosphorus Magnesium Alkaline Phosphatase Troponin T Total Protein Albumin Free T4 Fluid Total Protein Crossmatch 04/24/22 04/24/22 04/24/22 05:03 10:20 11:24 WBC RBC Hgb Hct RDW Plt Count Lymph % (Auto) [place] % (Auto) Lymph # (Auto) [place] # (Auto) Seg Neutrophils % Seg Neuts % (Manual) Lymphocytes % (Manual) Nucleated RBC % Seg Neutrophils # Seg Neutrophils # Man Lymphocytes # (Manual) PT INR APTT Heparin Anti-Xa Level < 0.10 L ABG pH ABG pO2 ABG HCO3 ABG Base Excess ABG Hemoglobin Oxyhemoglobin Sodium Potassium Chloride Carbon Dioxide BUN Creatinine Glucose POC Glucose 142 H 144 H Phosphorus Magnesium Alkaline Phosphatase Troponin T Total Protein Albumin Free T4 Fluid Total Protein Crossmatch 04/25/22 04/25/22 04/25/22 00:15 04:11 04:11 WBC 4.4 L RBC 2.38 L Hgb 6.7 L Hct 21.7 L RDW 17.2 H Plt Count Lymph % (Auto) [place] % (Auto) Lymph # (Auto) [place] # (Auto) Seg Neutrophils % Seg Neuts % (Manual) Lymphocytes % (Manual) Nucleated RBC % Seg Neutrophils # Seg Neutrophils # Man Lymphocytes # (Manual) PT INR APTT Heparin Anti-Xa Level ABG pH ABG pO2 ABG HCO3 ABG Base Excess ABG Hemoglobin Oxyhemoglobin Sodium 134 L Potassium Chloride 97.1 L Carbon Dioxide BUN 47 H Creatinine 4.3 H Glucose 106 H POC Glucose 136 H Phosphorus Magnesium Alkaline Phosphatase Troponin T Total Protein Albumin Free T4 Fluid Total Protein Crossmatch 04/25/22 04/25/22 04/25/22 06:01 15:30 22:44 WBC RBC Hgb 8.8 L Hct 28.1 L D RDW Plt Count Lymph % (Auto) [place] % (Auto) Lymph # (Auto) [place] # (Auto) Seg Neutrophils % Seg Neuts % (Manual) Lymphocytes % (Manual) Nucleated RBC % Seg Neutrophils # Seg Neutrophils # Man Lymphocytes # (Manual) PT INR APTT Heparin Anti-Xa Level ABG pH ABG pO2 ABG HCO3 ABG Base Excess ABG Hemoglobin Oxyhemoglobin Sodium Potassium Chloride Carbon Dioxide BUN Creatinine Glucose POC Glucose 137 H Phosphorus Magnesium Alkaline Phosphatase Troponin T Total Protein Albumin Free T4 Fluid Total Protein Crossmatch See Detail 04/26/22 04/27/22 04/27/22 04:20 04:45 04:45 WBC RBC 2.81 L 3.13 L Hgb 8.0 L 9.0 L Hct 25.4 L 29.1 L RDW 16.2 H 17.4 H Plt Count Lymph % (Auto) [place] % (Auto) Lymph # (Auto) [place] # (Auto) Seg Neutrophils % Seg Neuts % (Manual) Lymphocytes % (Manual) Nucleated RBC % Seg Neutrophils # Seg Neutrophils # Man Lymphocytes # (Manual) PT INR APTT Heparin Anti-Xa Level ABG pH ABG pO2 ABG HCO3 ABG Base Excess ABG Hemoglobin Oxyhemoglobin Sodium 131 L Potassium Chloride 93.5 L Carbon Dioxide BUN 44 H Creatinine 3.9 H Glucose 135 H POC Glucose Phosphorus Magnesium Alkaline Phosphatase Troponin T Total Protein Albumin Free T4 Fluid Total Protein Crossmatch 04/27/22 04/28/22 04/28/22 23:38 05:26 07:54 WBC 11.1 H RBC 2.40 L Hgb 6.9 L Hct 22.1 L D RDW 17.2 H Plt Count Lymph % (Auto) [place] % (Auto) Lymph # (Auto) [place] # (Auto) Seg Neutrophils % Seg Neuts % (Manual) Lymphocytes % (Manual) Nucleated RBC % Seg Neutrophils # Seg Neutrophils # Man Lymphocytes # (Manual) PT INR APTT Heparin Anti-Xa Level ABG pH ABG pO2 ABG HCO3 ABG Base Excess ABG Hemoglobin Oxyhemoglobin Sodium Potassium Chloride Carbon Dioxide BUN Creatinine Glucose POC Glucose 229 H 169 H Phosphorus Magnesium Alkaline Phosphatase Troponin T Total Protein Albumin Free T4 Fluid Total Protein Crossmatch 04/28/22 04/28/22 04/29/22 12:31 17:54 00:49 WBC RBC Hgb Hct RDW Plt Count Lymph % (Auto) [place] % (Auto) Lymph # (Auto) [place] # (Auto) Seg Neutrophils % Seg Neuts % (Manual) Lymphocytes % (Manual) Nucleated RBC % Seg Neutrophils # Seg Neutrophils # Man Lymphocytes # (Manual) PT INR APTT Heparin Anti-Xa Level ABG pH ABG pO2 ABG HCO3 ABG Base Excess ABG Hemoglobin Oxyhemoglobin Sodium Potassium Chloride Carbon Dioxide BUN Creatinine Glucose POC Glucose 132 H 138 H 189 H Phosphorus Magnesium Alkaline Phosphatase Troponin T Total Protein Albumin Free T4 Fluid Total Protein Crossmatch 04/29/22 04/29/22 04/29/22 06:42 10:54 10:54 WBC 11.8 H RBC 2.93 L Hgb 8.6 L Hct 26.2 L RDW 16.8 H Plt Count Lymph % (Auto) [place] % (Auto) Lymph # (Auto) [place] # (Auto) Seg Neutrophils % Seg Neuts % (Manual) Lymphocytes % (Manual) Nucleated RBC % Seg Neutrophils # Seg Neutrophils # Man Lymphocytes # (Manual) PT INR APTT Heparin Anti-Xa Level ABG pH ABG pO2 ABG HCO3 ABG Base Excess ABG Hemoglobin Oxyhemoglobin Sodium 129 L Potassium Chloride 91.5 L Carbon Dioxide BUN 46 H Creatinine 3.1 H Glucose 180 H POC Glucose 196 H Phosphorus Magnesium Alkaline Phosphatase Troponin T Total Protein Albumin Free T4 Fluid Total Protein Crossmatch 04/29/22 04/29/22 04/30/22 12:03 23:32 05:57 WBC RBC Hgb Hct RDW Plt Count Lymph % (Auto) [place] % (Auto) Lymph # (Auto) [place] # (Auto) Seg Neutrophils % Seg Neuts % (Manual) Lymphocytes % (Manual) Nucleated RBC % Seg Neutrophils # Seg Neutrophils # Man Lymphocytes # (Manual) PT INR APTT Heparin Anti-Xa Level ABG pH ABG pO2 ABG HCO3 ABG Base Excess ABG Hemoglobin Oxyhemoglobin Sodium Potassium Chloride Carbon Dioxide BUN Creatinine Glucose POC Glucose 169 H 170 H 151 H Phosphorus Magnesium Alkaline Phosphatase Troponin T Total Protein Albumin Free T4 Fluid Total Protein Crossmatch 04/30/22 04/30/22 04/30/22 11:28 16:39 23:22 WBC RBC Hgb Hct RDW Plt Count Lymph % (Auto) [place] % (Auto) Lymph # (Auto) [place] # (Auto) Seg Neutrophils % Seg Neuts % (Manual) Lymphocytes % (Manual) Nucleated RBC % Seg Neutrophils # Seg Neutrophils # Man Lymphocytes # (Manual) PT INR APTT Heparin Anti-Xa Level ABG pH ABG pO2 ABG HCO3 ABG Base Excess ABG Hemoglobin Oxyhemoglobin Sodium Potassium Chloride Carbon Dioxide BUN Creatinine Glucose POC Glucose 159 H 147 H 170 H Phosphorus Magnesium Alkaline Phosphatase Troponin T Total Protein Albumin Free T4 Fluid Total Protein Crossmatch 05/01/22 05/01/22 05/01/22 04:00 05:34 15:23 WBC RBC 2.92 L Hgb 8.4 L Hct 26.7 L RDW 16.6 H Plt Count Lymph % (Auto) [place] % (Auto) Lymph # (Auto) [place] # (Auto) Seg Neutrophils % Seg Neuts % (Manual) Lymphocytes % (Manual) Nucleated RBC % Seg Neutrophils # Seg Neutrophils # Man Lymphocytes # (Manual) PT INR APTT Heparin Anti-Xa Level ABG pH ABG pO2 74.2 L ABG HCO3 27.8 H ABG Base Excess ABG Hemoglobin 8.7 L Oxyhemoglobin 94.5 L Sodium Potassium Chloride Carbon Dioxide BUN Creatinine Glucose POC Glucose 140 H Phosphorus Magnesium Alkaline Phosphatase Troponin T Total Protein Albumin Free T4 Fluid Total Protein Crossmatch 05/02/22 05/02/22 05/02/22 05:54 05:54 05:54 WBC RBC 2.85 L Hgb 8.3 L Hct 25.9 L RDW 16.5 H Plt Count Lymph % (Auto) [place] % (Auto) Lymph # (Auto) [place] # (Auto) Seg Neutrophils % Seg Neuts % (Manual) Lymphocytes % (Manual) Nucleated RBC % Seg Neutrophils # Seg Neutrophils # Man Lymphocytes # (Manual) PT INR APTT Heparin Anti-Xa Level ABG pH ABG pO2 ABG HCO3 ABG Base Excess ABG Hemoglobin Oxyhemoglobin Sodium 130 L 128 L Potassium Chloride 90.9 L 90.0 L Carbon Dioxide BUN 49 H 49 H Creatinine 3.7 H 3.8 H Glucose 191 H 184 H POC Glucose Phosphorus Magnesium Alkaline Phosphatase Troponin T Total Protein Albumin Free T4 Fluid Total Protein Crossmatch 05/02/22 05/03/22 05/03/22 14:15 04:24 04:24 WBC RBC 2.71 L Hgb 7.8 L Hct 24.8 L RDW 16.6 H Plt Count Lymph % (Auto) [place] % (Auto) Lymph # (Auto) [place] # (Auto) Seg Neutrophils % Seg Neuts % (Manual) Lymphocytes % (Manual) Nucleated RBC % Seg Neutrophils # Seg Neutrophils # Man Lymphocytes # (Manual) PT INR APTT 39.4 H Heparin Anti-Xa Level ABG pH ABG pO2 ABG HCO3 29.1 H ABG Base Excess 4.3 H ABG Hemoglobin 8.4 L Oxyhemoglobin 94.8 L Sodium Potassium Chloride Carbon Dioxide BUN Creatinine Glucose POC Glucose Phosphorus Magnesium Alkaline Phosphatase Troponin T Total Protein Albumin Free T4 Fluid Total Protein Crossmatch 05/03/22 05/03/22 05/03/22 04:24 15:17 17:30 WBC RBC Hgb Hct RDW Plt Count Lymph % (Auto) [place] % (Auto) Lymph # (Auto) [place] # (Auto) Seg Neutrophils % Seg Neuts % (Manual) Lymphocytes % (Manual) Nucleated RBC % Seg Neutrophils # Seg Neutrophils # Man Lymphocytes # (Manual) PT INR APTT Heparin Anti-Xa Level ABG pH 7.577 H ABG pO2 140.4 H ABG HCO3 26.4 H ABG Base Excess 4.0 H ABG Hemoglobin 5.4 L Oxyhemoglobin Sodium 132 L Potassium Chloride 93.0 L Carbon Dioxide BUN 31 H Creatinine 2.8 H Glucose 119 H POC Glucose 60 L Phosphorus 2.10 L Magnesium Alkaline Phosphatase Troponin T Total Protein Albumin Free T4 Fluid Total Protein Crossmatch 05/03/22 05/04/22 05/04/22 23:33 04:26 04:26 WBC 16.0 H RBC 2.39 L Hgb 6.9 L Hct 21.4 L RDW 15.8 H Plt Count Lymph % (Auto) [place] % (Auto) Lymph # (Auto) [place] # (Auto) Seg Neutrophils % Seg Neuts % (Manual) Lymphocytes % (Manual) Nucleated RBC % Seg Neutrophils # Seg Neutrophils # Man Lymphocytes # (Manual) PT INR APTT Heparin Anti-Xa Level ABG pH ABG pO2 ABG HCO3 ABG Base Excess ABG Hemoglobin Oxyhemoglobin Sodium 133 L Potassium Chloride 94.8 L Carbon Dioxide BUN 34 H Creatinine 3.5 H Glucose 175 H POC Glucose 106 H Phosphorus Magnesium Alkaline Phosphatase Troponin T Total Protein Albumin Free T4 Fluid Total Protein Crossmatch 0805/04/22 05/04/22 04:26 05:30 05:40 WBC RBC Hgb Hct RDW Plt Count Lymph % (Auto) [place] % (Auto) Lymph # (Auto) [place] # (Auto) Seg Neutrophils % Seg Neuts % (Manual) Lymphocytes % (Manual) Nucleated RBC % Seg Neutrophils # Seg Neutrophils # Man Lymphocytes # (Manual) PT 17.6 H INR 1.29 H APTT Heparin Anti-Xa Level ABG pH 7.547 H ABG pO2 141.7 H ABG HCO3 27.2 H ABG Base Excess 5.3 H ABG Hemoglobin 6.9 L Oxyhemoglobin Sodium Potassium Chloride Carbon Dioxide BUN Creatinine Glucose POC Glucose Phosphorus Magnesium Alkaline Phosphatase Troponin T Total Protein Albumin Free T4 Fluid Total Protein Crossmatch See Detail 05/04/22 05/04/22 05/04/22 05:41 12:55 18:10 WBC RBC Hgb Hct RDW Plt Count Lymph % (Auto) [place] % (Auto) Lymph # (Auto) [place] # (Auto) Seg Neutrophils % Seg Neuts % (Manual) Lymphocytes % (Manual) Nucleated RBC % Seg Neutrophils # Seg Neutrophils # Man Lymphocytes # (Manual) PT INR APTT Heparin Anti-Xa Level ABG pH ABG pO2 ABG HCO3 ABG Base Excess ABG Hemoglobin Oxyhemoglobin Sodium Potassium Chloride Carbon Dioxide BUN Creatinine Glucose POC Glucose 177 H 141 H 143 H Phosphorus Magnesium Alkaline Phosphatase Troponin T Total Protein Albumin Free T4 Fluid Total Protein Crossmatch 05/05/22 05/05/22 05/05/22 00:05 04:20 04:20 WBC 12.8 H RBC 2.81 L Hgb 8.0 L Hct 24.8 L RDW 16.8 H Plt Count Lymph % (Auto) [place] % (Auto) Lymph # (Auto) [place] # (Auto) Seg Neutrophils % Seg Neuts % (Manual) 86.0 H Lymphocytes % (Manual) 4.0 L Nucleated RBC % 1.0 H Seg Neutrophils # Seg Neutrophils # Man 11.0 H Lymphocytes # (Manual) 0.5 L PT INR APTT Heparin Anti-Xa Level ABG pH ABG pO2 ABG HCO3 ABG Base Excess ABG Hemoglobin Oxyhemoglobin Sodium 130 L Potassium 3.3 L Chloride 94.0 L Carbon Dioxide BUN 24 H Creatinine 2.3 H Glucose 163 H POC Glucose 163 H Phosphorus 1.50 L Magnesium Alkaline Phosphatase Troponin T Total Protein Albumin Free T4 Fluid Total Protein Crossmatch 05/05/22 05/05/22 05/05/22 05:18 10:06 12:11 WBC RBC Hgb Hct RDW Plt Count Lymph % (Auto) [place] % (Auto) Lymph # (Auto) [place] # (Auto) Seg Neutrophils % Seg Neuts % (Manual) Lymphocytes % (Manual) Nucleated RBC % Seg Neutrophils # Seg Neutrophils # Man Lymphocytes # (Manual) PT INR APTT Heparin Anti-Xa Level ABG pH ABG pO2 91.7 H ABG HCO3 27.4 H ABG Base Excess ABG Hemoglobin 11.4 L Oxyhemoglobin Sodium Potassium Chloride Carbon Dioxide BUN Creatinine Glucose POC Glucose 163 H 186 H Phosphorus Magnesium Alkaline Phosphatase Troponin T Total Protein Albumin Free T4 Fluid Total Protein Crossmatch 05/05/22 05/06/22 05/06/22 16:29 04:45 04:59 WBC RBC Hgb Hct RDW Plt Count Lymph % (Auto) [place] % (Auto) Lymph # (Auto) [place] # (Auto) Seg Neutrophils % Seg Neuts % (Manual) Lymphocytes % (Manual) Nucleated RBC % Seg Neutrophils # Seg Neutrophils # Man Lymphocytes # (Manual) PT INR APTT Heparin Anti-Xa Level ABG pH ABG pO2 112.7 H ABG HCO3 ABG Base Excess ABG Hemoglobin 7.8 L Oxyhemoglobin Sodium Potassium Chloride Carbon Dioxide BUN Creatinine Glucose POC Glucose 170 H 146 H Phosphorus Magnesium Alkaline Phosphatase Troponin T Total Protein Albumin Free T4 Fluid Total Protein Crossmatch 05/06/22 05/06/22 05/06/22 05:02 05:02 11:34 WBC RBC 2.78 L Hgb 7.9 L Hct 25.1 L RDW 16.7 H Plt Count 119 L Lymph % (Auto) [place] % (Auto) Lymph # (Auto) [place] # (Auto) Seg Neutrophils % Seg Neuts % (Manual) Lymphocytes % (Manual) Nucleated RBC % Seg Neutrophils # Seg Neutrophils # Man Lymphocytes # (Manual) PT INR APTT Heparin Anti-Xa Level ABG pH ABG pO2 ABG HCO3 ABG Base Excess ABG Hemoglobin Oxyhemoglobin Sodium 135 L Potassium 3.3 L Chloride 97.9 L Carbon Dioxide BUN 30 H Creatinine 2.7 H Glucose 148 H POC Glucose 130 H Phosphorus 1.50 L Magnesium Alkaline Phosphatase Troponin T Total Protein Albumin Free T4 Fluid Total Protein Crossmatch 08/05/06/22 05/07/22 16:48 23:34 04:15 WBC RBC 2.95 L Hgb 8.4 L Hct 26.7 L RDW 16.7 H Plt Count 112 L Lymph % (Auto) [place] % (Auto) Lymph # (Auto) [place] # (Auto) Seg Neutrophils % Seg Neuts % (Manual) Lymphocytes % (Manual) Nucleated RBC % Seg Neutrophils # Seg Neutrophils # Man Lymphocytes # (Manual) PT INR APTT Heparin Anti-Xa Level ABG pH ABG pO2 ABG HCO3 ABG Base Excess ABG Hemoglobin Oxyhemoglobin Sodium Potassium Chloride Carbon Dioxide BUN Creatinine Glucose POC Glucose 121 H 145 H Phosphorus Magnesium Alkaline Phosphatase Troponin T Total Protein Albumin Free T4 Fluid Total Protein Crossmatch 05/07/22 05/07/22 05/07/22 04:15 05:26 11:08 WBC RBC Hgb Hct RDW Plt Count Lymph % (Auto) [place] % (Auto) Lymph # (Auto) [place] # (Auto) Seg Neutrophils % Seg Neuts % (Manual) Lymphocytes % (Manual) Nucleated RBC % Seg Neutrophils # Seg Neutrophils # Man Lymphocytes # (Manual) PT INR APTT Heparin Anti-Xa Level ABG pH ABG pO2 ABG HCO3 ABG Base Excess ABG Hemoglobin Oxyhemoglobin Sodium 131 L Potassium 3.4 L Chloride 95.3 L Carbon Dioxide BUN 28 H Creatinine 2.5 H Glucose 140 H POC Glucose 136 H 136 H Phosphorus 1.20 L Magnesium Alkaline Phosphatase Troponin T Total Protein Albumin Free T4 Fluid Total Protein Crossmatch 05/07/22 05/07/22 05/08/22 17:26 23:23 04:06 WBC RBC 2.87 L Hgb 8.2 L Hct 25.8 L RDW 16.2 H Plt Count 118 L Lymph % (Auto) [place] % (Auto) Lymph # (Auto) [place] # (Auto) Seg Neutrophils % Seg Neuts % (Manual) Lymphocytes % (Manual) Nucleated RBC % Seg Neutrophils # Seg Neutrophils # Man Lymphocytes # (Manual) PT INR APTT Heparin Anti-Xa Level ABG pH ABG pO2 ABG HCO3 ABG Base Excess ABG Hemoglobin Oxyhemoglobin Sodium Potassium Chloride Carbon Dioxide BUN Creatinine Glucose POC Glucose 135 H 123 H Phosphorus Magnesium Alkaline Phosphatase Troponin T Total Protein Albumin Free T4 Fluid Total Protein Crossmatch 05/08/22 05/08/22 05/08/22 04:06 04:40 11:31 WBC RBC Hgb Hct RDW Plt Count Lymph % (Auto) [place] % (Auto) Lymph # (Auto) [place] # (Auto) Seg Neutrophils % Seg Neuts % (Manual) Lymphocytes % (Manual) Nucleated RBC % Seg Neutrophils # Seg Neutrophils # Man Lymphocytes # (Manual) PT INR APTT Heparin Anti-Xa Level ABG pH 7.482 H ABG pO2 103.9 H ABG HCO3 ABG Base Excess ABG Hemoglobin 8.1 L Oxyhemoglobin Sodium 132 L Potassium 3.3 L Chloride 93.2 L Carbon Dioxide BUN 36 H Creatinine 2.9 H Glucose 145 H POC Glucose 138 H Phosphorus 2.00 L D Magnesium Alkaline Phosphatase Troponin T Total Protein Albumin Free T4 Fluid Total Protein Crossmatch 05/08/22 05/08/22 05/08/22 16:11 21:00 23:46 WBC RBC Hgb Hct RDW Plt Count Lymph % (Auto) [place] % (Auto) Lymph # (Auto) [place] # (Auto) Seg Neutrophils % Seg Neuts % (Manual) Lymphocytes % (Manual) Nucleated RBC % Seg Neutrophils # Seg Neutrophils # Man Lymphocytes # (Manual) PT INR APTT Heparin Anti-Xa Level ABG pH ABG pO2 68.8 L ABG HCO3 27.0 H ABG Base Excess ABG Hemoglobin 8.4 L Oxyhemoglobin 93.4 L Sodium Potassium Chloride Carbon Dioxide BUN Creatinine Glucose POC Glucose 134 H 142 H Phosphorus Magnesium Alkaline Phosphatase Troponin T Total Protein Albumin Free T4 Fluid Total Protein Crossmatch 05/09/22 05/09/22 05/09/22 04:25 04:25 11:29 WBC RBC 2.86 L Hgb 8.0 L Hct 25.7 L RDW 16.2 H Plt Count 101 L Lymph % (Auto) [place] % (Auto) Lymph # (Auto) [place] # (Auto) Seg Neutrophils % Seg Neuts % (Manual) Lymphocytes % (Manual) Nucleated RBC % Seg Neutrophils # Seg Neutrophils # Man Lymphocytes # (Manual) PT INR APTT Heparin Anti-Xa Level ABG pH ABG pO2 ABG HCO3 ABG Base Excess ABG Hemoglobin Oxyhemoglobin Sodium 132 L Potassium 3.5 L Chloride 93.7 L Carbon Dioxide BUN 42 H Creatinine 3.0 H Glucose 145 H POC Glucose 180 H Phosphorus Magnesium Alkaline Phosphatase Troponin T Total Protein Albumin Free T4 Fluid Total Protein Crossmatch 05/09/22 05/09/22 05/10/22 16:19 Unknown 05:55 WBC RBC Hgb Hct RDW Plt Count Lymph % (Auto) [place] % (Auto) Lymph # (Auto) [place] # (Auto) Seg Neutrophils % Seg Neuts % (Manual) Lymphocytes % (Manual) Nucleated RBC % Seg Neutrophils # Seg Neutrophils # Man Lymphocytes # (Manual) PT INR APTT Heparin Anti-Xa Level ABG pH ABG pO2 ABG HCO3 ABG Base Excess ABG Hemoglobin Oxyhemoglobin Sodium Potassium Chloride Carbon Dioxide BUN Creatinine Glucose POC Glucose 143 H 164 H Phosphorus Magnesium Alkaline Phosphatase Troponin T Total Protein Albumin Free T4 Fluid Total Protein < 3.0 L Crossmatch 05/10/22 05/11/22 05/11/22 16:37 00:56 05:13 WBC RBC Hgb Hct RDW Plt Count Lymph % (Auto) [place] % (Auto) Lymph # (Auto) [place] # (Auto) Seg Neutrophils % Seg Neuts % (Manual) Lymphocytes % (Manual) Nucleated RBC % Seg Neutrophils # Seg Neutrophils # Man Lymphocytes # (Manual) PT INR APTT Heparin Anti-Xa Level ABG pH ABG pO2 ABG HCO3 ABG Base Excess ABG Hemoglobin Oxyhemoglobin Sodium Potassium Chloride Carbon Dioxide BUN Creatinine Glucose POC Glucose 130 H 179 H 139 H Phosphorus Magnesium Alkaline Phosphatase Troponin T Total Protein Albumin Free T4 Fluid Total Protein Crossmatch 05/11/22 05/11/22 05/12/22 18:11 23:53 04:11 WBC 18.0 H RBC 2.56 L Hgb 7.2 L Hct 23.2 L RDW 16.4 H Plt Count Lymph % (Auto) 7.8 L [place] % (Auto) 14.2 H Lymph # (Auto) [place] # (Auto) 2.5 H Seg Neutrophils % 77.1 H Seg Neuts % (Manual) Lymphocytes % (Manual) Nucleated RBC % Seg Neutrophils # 13.9 H Seg Neutrophils # Man Lymphocytes # (Manual) PT INR APTT Heparin Anti-Xa Level ABG pH ABG pO2 ABG HCO3 ABG Base Excess ABG Hemoglobin Oxyhemoglobin Sodium Potassium Chloride Carbon Dioxide BUN Creatinine Glucose POC Glucose 166 H 115 H Phosphorus Magnesium Alkaline Phosphatase Troponin T Total Protein Albumin Free T4 Fluid Total Protein Crossmatch 05/12/22 05/12/22 05/12/22 04:11 05:03 06:00 WBC RBC Hgb Hct RDW Plt Count Lymph % (Auto) [place] % (Auto) Lymph # (Auto) [place] # (Auto) Seg Neutrophils % Seg Neuts % (Manual) Lymphocytes % (Manual) Nucleated RBC % Seg Neutrophils # Seg Neutrophils # Man Lymphocytes # (Manual) PT 15.4 H INR APTT Heparin Anti-Xa Level ABG pH ABG pO2 ABG HCO3 ABG Base Excess ABG Hemoglobin Oxyhemoglobin Sodium 133 L Potassium Chloride 94.1 L Carbon Dioxide BUN 29 H Creatinine 2.4 H Glucose 145 H POC Glucose 122 H Phosphorus Magnesium Alkaline Phosphatase 332 H Troponin T Total Protein 4.8 L Albumin 2.0 L Free T4 Fluid Total Protein Crossmatch 05/12/22 05/12/22 05/12/22 06:07 11:36 16:44 WBC RBC Hgb Hct RDW Plt Count Lymph % (Auto) [place] % (Auto) Lymph # (Auto) [place] # (Auto) Seg Neutrophils % Seg Neuts % (Manual) Lymphocytes % (Manual) Nucleated RBC % Seg Neutrophils # Seg Neutrophils # Man Lymphocytes # (Manual) PT INR APTT Heparin Anti-Xa Level ABG pH ABG pO2 ABG HCO3 ABG Base Excess ABG Hemoglobin Oxyhemoglobin Sodium Potassium Chloride Carbon Dioxide BUN Creatinine Glucose POC Glucose 143 H 121 H Phosphorus Magnesium Alkaline Phosphatase Troponin T Total Protein Albumin Free T4 Fluid Total Protein Crossmatch See Detail 05/12/22 05/12/22 05/13/22 18:00 23:06 04:00 WBC 16.6 H RBC 3.04 L Hgb 8.7 L 8.8 L Hct 27.1 L 26.9 L RDW 15.3 H Plt Count Lymph % (Auto) [place] % (Auto) Lymph # (Auto) [place] # (Auto) Seg Neutrophils % Seg Neuts % (Manual) Lymphocytes % (Manual) Nucleated RBC % Seg Neutrophils # Seg Neutrophils # Man Lymphocytes # (Manual) PT INR APTT Heparin Anti-Xa Level ABG pH ABG pO2 ABG HCO3 ABG Base Excess ABG Hemoglobin Oxyhemoglobin Sodium Potassium Chloride Carbon Dioxide BUN Creatinine Glucose POC Glucose 129 H Phosphorus Magnesium Alkaline Phosphatase Troponin T Total Protein Albumin Free T4 Fluid Total Protein Crossmatch 05/13/22 05/13/22 05/13/22 04:00 05:00 12:17 WBC RBC Hgb Hct RDW Plt Count Lymph % (Auto) [place] % (Auto) Lymph # (Auto) [place] # (Auto) Seg Neutrophils % Seg Neuts % (Manual) Lymphocytes % (Manual) Nucleated RBC % Seg Neutrophils # Seg Neutrophils # Man Lymphocytes # (Manual) PT INR APTT Heparin Anti-Xa Level ABG pH ABG pO2 ABG HCO3 ABG Base Excess ABG Hemoglobin Oxyhemoglobin Sodium 131 L Potassium Chloride 93.2 L Carbon Dioxide BUN 38 H Creatinine 2.7 H Glucose 145 H POC Glucose 136 H 143 H Phosphorus Magnesium Alkaline Phosphatase Troponin T Total Protein Albumin Free T4 Fluid Total Protein Crossmatch 05/13/22 05/14/22 05/14/22 18:08 00:22 04:30 WBC RBC Hgb Hct RDW Plt Count Lymph % (Auto) [place] % (Auto) Lymph # (Auto) [place] # (Auto) Seg Neutrophils % Seg Neuts % (Manual) Lymphocytes % (Manual) Nucleated RBC % Seg Neutrophils # Seg Neutrophils # Man Lymphocytes # (Manual) PT INR APTT Heparin Anti-Xa Level ABG pH ABG pO2 ABG HCO3 ABG Base Excess ABG Hemoglobin Oxyhemoglobin Sodium Potassium Chloride Carbon Dioxide BUN Creatinine Glucose POC Glucose 142 H 147 H 122 H Phosphorus Magnesium Alkaline Phosphatase Troponin T Total Protein Albumin Free T4 Fluid Total Protein Crossmatch 05/14/22 05/14/22 05/14/22 05:36 11:15 11:58 WBC 13.4 H RBC 2.83 L Hgb 8.1 L Hct 25.1 L RDW Plt Count Lymph % (Auto) [place] % (Auto) Lymph # (Auto) [place] # (Auto) Seg Neutrophils % Seg Neuts % (Manual) Lymphocytes % (Manual) Nucleated RBC % Seg Neutrophils # Seg Neutrophils # Man Lymphocytes # (Manual) PT INR APTT Heparin Anti-Xa Level ABG pH 7.479 H ABG pO2 ABG HCO3 30.6 H ABG Base Excess 6.5 H ABG Hemoglobin 9.0 L Oxyhemoglobin Sodium Potassium Chloride Carbon Dioxide BUN Creatinine Glucose POC Glucose 167 H Phosphorus Magnesium Alkaline Phosphatase Troponin T Total Protein Albumin Free T4 Fluid Total Protein Crossmatch 05/14/22 05/15/22 05/15/22 18:04 00:28 11:13 WBC RBC Hgb Hct RDW Plt Count Lymph % (Auto) [place] % (Auto) Lymph # (Auto) [place] # (Auto) Seg Neutrophils % Seg Neuts % (Manual) Lymphocytes % (Manual) Nucleated RBC % Seg Neutrophils # Seg Neutrophils # Man Lymphocytes # (Manual) PT INR APTT Heparin Anti-Xa Level ABG pH ABG pO2 ABG HCO3 ABG Base Excess ABG Hemoglobin Oxyhemoglobin Sodium 133 L Potassium Chloride 95.8 L Carbon Dioxide BUN 36 H Creatinine 3.0 H Glucose 110 H POC Glucose 134 H 135 H Phosphorus Magnesium Alkaline Phosphatase Troponin T Total Protein Albumin Free T4 Fluid Total Protein Crossmatch 05/16/22 05/16/22 05/16/22 01:17 04:30 05:19 WBC RBC Hgb Hct RDW Plt Count Lymph % (Auto) [place] % (Auto) Lymph # (Auto) [place] # (Auto) Seg Neutrophils % Seg Neuts % (Manual) Lymphocytes % (Manual) Nucleated RBC % Seg Neutrophils # Seg Neutrophils # Man Lymphocytes # (Manual) PT INR APTT Heparin Anti-Xa Level ABG pH 7.486 H ABG pO2 ABG HCO3 29.5 H ABG Base Excess 5.7 H ABG Hemoglobin 8.4 L Oxyhemoglobin Sodium Potassium Chloride Carbon Dioxide BUN Creatinine Glucose POC Glucose 133 H 161 H Phosphorus Magnesium Alkaline Phosphatase Troponin T Total Protein Albumin Free T4 Fluid Total Protein Crossmatch Chest x-ray: image reviewed Allied health notes reviewed: RT
--- NOTE | 2022-05-16 08:51 | Progress Note ---
Subjective Principal diagnosis: Neurogenic Dysphagia Interval history: Assessment and plan #End-stage kidney disease: Patient will continue to receive hemodialysis treatment , Dialysis has been ordered for MARKELL and we will continue to dialyze for now 3 times a week if she is tolerating dialysis treatment better judicious ultrafiltration and daily dialysis can be considered at a later date Would definitely suggest using IV albumin with dialysis at least 25 to 50 g to allow ultrafiltration reduce third spacing of fluid short-term As of yesterday hemoglobin 8.1 leukocytosis improving 13.4 thousand normal platelet count, May 13 sodium 131 BUN 38 creatinine 2.7, calcium 8.8, random vancomycin earlier 20 point #Access: Needs to be monitored during dialysis Patient has history of difficult vascular access Patient will be ordered to receive hemodialysis treatment today as tolerated, discussed with ICU nurse, patient can receive IV albumin during dialysis to reduce to third spacing which should be preferred at least for the next 2-3 treatment, lab results were reviewed from today, Hypertension and volume currently requiring vasopressor as well as midodrine, she still continues to have significant volume overload most of this is appearing to be from the inflammatory response as well as third spacing of fluid IV albumin can be used with every dialysis treatment Her dialysis access is currently graft which has been working well to monitor for any issues with hypotension,Patient has difficult vascular access in the past #Anemia in end-stage kidney disease: minimize lab draws as much as possible unless absolutely indicated, currently on erythropoietin 20,000 units Bone mineral disorder and secondary hyperparathyroidism; Monitor phosphorus binders as necessary goal phosphorus less than 5-1/2 #Diet and nutrition: On tube feeding Dose medication for GFR below 15 #Multiple other course complex and comorbidities including but not limited to altered mental status s/p cardioversion for supraventricular tach, systemic inflammatory response non-ST elevation DE, Time spent in critical care setting 35 minutes If there are any renal related issues in regards to this patient please feel free to reach out without any hesitation at [phone] We'll continue to follow and make recommendation for renal standpoint. Progress note by: Hira Love MD [address] [place] [id number] Tele [phone] [email or web address] Patient was seen today for follow-up of multiple renal related issues Patient is currently not on any vasopressor which has been discontinued discussed with ICU nurse at the bedside she is also ordered to receive hemodialysis treatment today Currently she is s/p tracheostomy and is resting comfortably in bed heart rate around 110s to 111 Past medical history: Reviewed Family history: Reviewed Social history: Reviewed Allergies: Reviewed Physical examination: Vitals: Reviewed HEENT: No pallor or icterus oral mucosa moist Neck: Supple no JVD no thyromegaly Chest: Bilateral clear to auscultation anteriorly Heart: Regular rate and rhythm S1-S2 heard no S3-S4 Abdomen: Soft nontender no voluntary guarding rigidity rebound Extremity: Dry skin less than 1+ peripheral edema Psychiatric: No evidence of agitation and aggression noted Dermatology: No petechial rashes Labs and x-rays: Reviewed from today Objective - Vital Signs Vital signs: Vital Signs - 12hr 05/15/22 05/15/22 05/15/22 21:00 21:32 22:00 Temperature Pulse Rate 86 82 92 H Pulse Rate [ Anterior Bilateral Throughout] Pulse Rate [ 83 From Monitor] Respiratory 14 14 12 Rate Respiratory Rate [Anterior Bilateral Throughout] Blood Pressure 98/51 93/45 O2 Sat by Pulse 100 100 100 Oximetry O2 Sat by Pulse Oximetry [ Assessment] 05/15/22 05/15/22 05/16/22 23:00 23:34 00:00 Temperature Pulse Rate 83 83 89 Pulse Rate [ Anterior Bilateral Throughout] Pulse Rate [ From Monitor] Respiratory 14 14 14 Rate Respiratory Rate [Anterior Bilateral Throughout] Blood Pressure 89/43 89/43 98/40 O2 Sat by Pulse 100 100 100 Oximetry O2 Sat by Pulse Oximetry [ Assessment] 05/16/22 05/16/22 05/16/22 00:28 00:30 01:00 Temperature Pulse Rate 87 90 90 Pulse Rate [ Anterior Bilateral Throughout] Pulse Rate [ From Monitor] Respiratory 16 Rate Respiratory Rate [Anterior Bilateral Throughout] Blood Pressure 98/40 97/46 O2 Sat by Pulse 100 100 Oximetry O2 Sat by Pulse 100 Oximetry [ Assessment] 05/16/22 05/16/22 05/16/22 01:20 02:00 02:44 Temperature 97.9 F Pulse Rate 90 93 H 91 H Pulse Rate [ Anterior Bilateral Throughout] Pulse Rate [ 83 From Monitor] Respiratory 14 14 14 Rate Respiratory Rate [Anterior Bilateral Throughout] Blood Pressure 83/35 O2 Sat by Pulse 99 100 99 Oximetry O2 Sat by Pulse Oximetry [ Assessment] 05/16/22 05/16/22 05/16/22 03:00 03:10 03:30 Temperature 98.0 F Pulse Rate 89 89 Pulse Rate [ Anterior Bilateral Throughout] Pulse Rate [ From Monitor] Respiratory 14 14 Rate Respiratory Rate [Anterior Bilateral Throughout] Blood Pressure 92/46 O2 Sat by Pulse 99 99 Oximetry O2 Sat by Pulse Oximetry [ Assessment] 05/16/22 05/16/22 05/16/22 04:00 05:00 05:23 Temperature Pulse Rate 92 H 88 89 Pulse Rate [ Anterior Bilateral Throughout] Pulse Rate [ From Monitor] Respiratory 14 14 14 Rate Respiratory Rate [Anterior Bilateral Throughout] Blood Pressure 106/50 110/49 O2 Sat by Pulse 100 100 99 Oximetry O2 Sat by Pulse Oximetry [ Assessment] 05/16/22 05/16/22 05/16/22 06:00 07:00 07:25 Temperature 98.2 F Pulse Rate 99 H 103 H Pulse Rate [ Anterior Bilateral Throughout] Pulse Rate [ From Monitor] Respiratory 14 14 Rate Respiratory Rate [Anterior Bilateral Throughout] Blood Pressure 113/57 115/57 O2 Sat by Pulse 98 99 Oximetry O2 Sat by Pulse Oximetry [ Assessment] 05/16/22 05/16/22 08:45 08:48 Temperature Pulse Rate 113 H Pulse Rate [ 113 H Anterior Bilateral Throughout] Pulse Rate [ From Monitor] Respiratory Rate Respiratory 15 Rate [Anterior Bilateral Throughout] Blood Pressure 115/61 O2 Sat by Pulse 99 Oximetry O2 Sat by Pulse Oximetry [ Assessment] - Lab 05/14/22 05:36 05/15/22 11:13 Most recent lab results ABG pH 7.486 pH Units (7.350-7.450) H 05/16/22 04:30 ABG pCO2 40.0 mm Hg 05/16/22 04:30 ABG pO2 89.9 mm Hg (80.0-90.0) 05/16/22 04:30 ABG HCO3 29.5 mmol/L (20.0-26.0) H 05/16/22 04:30 ABG O2 Saturation 97.4 % (95.0-99.0) 05/16/22 04:30 Calcium 8.5 mg/dL (8.4-10.2) 05/15/22 11:13 Phosphorus 3.00 mg/dL (2.5-4.5) D 05/09/22 04:25 Magnesium 1.80 mg/dL (1.7-2.3) 05/09/22 04:25 Medications & Allergies - Medications Allergies/Adverse Reactions: Allergies buspirone [From BuSpar] Allergy (Verified 04/18/22 12:22) Unknown Penicillins Allergy (Verified 04/18/22 12:22) Rash corn Adverse Reaction (Verified 04/18/22 12:22) Unknown Home Medications: Home Medications Medication Instructions Recorded Confirmed Last Taken Type Sevelamer Carbonate [Renvela] 0.8 gram PO TIDWM 09/02/20 02/02/22 05/31/21 History HYDROcodone/APAP 5-325 [[place] 1 each PO Q4HR PRN #30 tablet 05/18/21 02/02/22 Unknown Rx 5-325 mg TAB] ALBUTEROL NEB's [Proventil 0.083% 2.5 mg IH Q3HRT PRN #1 nebu 03/03/22 Unknown Rx NEBS] Clopidogrel [Plavix] 75 mg PO QDAY #90 tablet 03/03/22 Unknown Rx Divalproex [Sarina Serrano] 750 mg PO BID #60 tablet 03/03/22 Unknown Rx LORazepam [Ativan] 1 mg PO DAILY #30 tab 03/03/22 Unknown Rx Memantine Xr [Namenda Xr] 5 mg PO DAILY #30 cap 03/03/22 Unknown Rx Midodrine [Proamatine] 10 mg PO TID #90 tab 03/03/22 Unknown Rx Pantoprazole [Protonix TAB] 40 mg PO DAILY #30 tab 03/03/22 Unknown Rx QUEtiapine [SEROquel] 400 mg PO BID #60 tab 03/03/22 Unknown Rx risperiDONE [RisperDAL] 0.5 mg PO BID #60 tab 03/03/22 Unknown Rx Active Medications: Generic Name Dose Route Start Last Admin Trade Name Freq PRN Reason Stop Dose Admin Acetaminophen 650 mg 04/22/22 20:12 05/12/22 23:29 Acetaminophen 325 Mg/10.15 Ml Oral Liqd Unit Dose PO 650 mg Q6H PRN Administration Pain MILD(1-3)/Fever >100.5/DRAKE Albumin Human 25 gm 04/21/22 13:00 04/22/22 16:31 Albumin Human 25% (25 Gm/100 Ml) Inj IV 25 gm BIANCA PRN Administration Hypotension Albuterol 2.5 mg 04/21/22 08:30 04/24/22 16:51 Albuterol 2.5 Mg/3 Ml Nebu IH 2.5 mg Q3HRT PRN Administration Shortness Of Breath Albuterol/Ipratropium 1 ampul 04/21/22 14:00 05/16/22 08:44 Ipratropium/Albuterol Sulfate 3 Ml Ampul.Neb IH 1 ampul TIDRT CONNOR Administration Docusate Sodium 100 mg 05/01/22 22:00 05/15/22 21:27 Docusate Sodium 100 Mg/10 Ml Oral Liqd FEEDTUBE 100 mg BID CONNOR Administration Epoetin Lb-epbx 20,000 unit 04/23/22 12:00 05/14/22 01:34 Epoetin Lb-Epbx 20,000 Unit/1 Ml Vial IV 20,000 unit BIANCA PRN Administration HEMODIALYSIS Fentanyl 50 mcg 05/03/22 10:29 05/05/22 12:23 Fentanyl 100 Mcg/2 Ml Inj IV 25 mcg Q10MIN PRN Administration ANALGESIA Sodium Chloride 100 mls @ 999 mls/hr 04/22/22 09:12 Nacl 0.9% IV BIANCA PRN Hypotension Fentanyl Citrate 2,000 mcg in 100 mls @ 2.722 mls/hr 05/03/22 11:00 Fentanyl Drip Premix IV TITR CONNOR Protocol 1 MCG/KG/HR Vasopressin 20 unit/ Sodium 101 mls @ 9.09 mls/hr 05/04/22 00:30 05/06/22 11:21 Chloride IV 0 units/min TITR CONNOR 0 mls/hr Infusion 0.03 UNITS/MIN NORepinephrine/NS 8 MG-250 ML 8 mg in 250 mls @ 3.75 mls/hr 05/11/22 21:23 05/16/22 07:28 Norepinephrine/Ns 8 Mg-250 Ml (Double Conc) IV 0 mcg/min TITRATE CONNOR 0 mls/hr Titration Protocol 2 MCG/MIN Lansoprazole 30 mg 04/23/22 10:00 05/15/22 10:10 Lansoprazole 30 Mg Solutab FEEDTUBE 30 mg QDAY CONNOR Administration Lorazepam 0.5 mg 04/25/22 09:59 Lorazepam 0.5 Mg Tab FEEDTUBE QDAY PRN Anxiety Memantine 5 mg 04/25/22 10:00 05/15/22 21:26 Memantine 5 Mg Tab FEEDTUBE 5 mg BID CONNOR Administration Metoclopramide HCl 5 mg 04/19/22 09:55 Metoclopramide 10 Mg/2 Ml Inj IV Q6H PRN Nausea And Vomiting Midodrine 20 mg 04/26/22 14:00 05/15/22 21:30 Midodrine 10 Mg Tab FEEDTUBE 20 mg TID CONNOR Administration Naloxone HCl 0.1 mg 04/19/22 09:55 Naloxone 0.4 Mg/1 Ml Inj IV Q2MIN PRN Res Rate </= 8 or 02 SAT < 92% Polyethylene Glycol 17 gm 05/03/22 10:00 05/15/22 10:10 Polyethylene Glycol 3350 17 Gm Powder FEEDTUBE Not Given QDAY CONNOR Risperidone 0.5 mg 04/25/22 11:00 05/15/22 21:27 Risperidone 1 Mg Tab FEEDTUBE 0.5 mg BID CONNOR Administration Scopolamine 1 each 05/02/22 10:00 05/14/22 09:25 Scopolamine Transdermal Patch 72 Hr TD 1 each Q3D CONNOR Administration Senna 17.2 mg 04/23/22 10:00 05/15/22 21:26 Sennosides 8.6 Mg Tab FEEDTUBE 17.2 mg BID CONNOR Administration Sodium Chloride 10 ml 04/19/22 12:00 05/15/22 21:29 Sodium Chloride 0.9% 10 Ml Flush Syringe IV 10 ml BID CONNOR Administration Sodium Chloride 10 ml 04/19/22 11:19 Sodium Chloride 0.9% 10 Ml Flush Syringe IV PRN PRN LINE FLUSH Valproic Acid 750 mg 04/22/22 22:00 05/15/22 21:27 Valproic Acid 250 Mg/5 Ml Oral Liqd FEEDTUBE 750 mg BID CONNOR Administration
[2022-05-16] MEDS: risperiDONE 1 MG TAB FEEDTUBE SCH (10:29)
[2022-05-16] MEDS: MEMANTINE 5 MG TAB FEEDTUBE SCH (10:31)
[2022-05-16] MEDS: DOCUSATE SODIUM 100 MG/10 ML ORAL LIQD FEEDTUBE SCH (10:31)
[2022-05-16] MEDS: SENNOSIDES 8.6 MG TAB FEEDTUBE SCH (10:31)
[2022-05-16] MEDS: POLYETHYLENE GLYCOL 3350 17 GM POWDER FEEDTUBE SCH (10:31)
[2022-05-16] MEDS: MIDODRINE 10 MG TAB FEEDTUBE SCH ×2 (11:00→15:57)
[2022-05-16] MEDS: LANSOPRAZOLE 30 MG SOLUTAB FEEDTUBE SCH (11:00)
[2022-05-16] MEDS: VALPROIC ACID 250 MG/5 ML ORAL LIQD FEEDTUBE SCH (11:00)
--- NOTE | 2022-05-16 12:30 | Discharge Summary ---
<COLLETTE HANNA - Last Filed: 05/16/22 19:41> Providers - Providers Date of Admission: 04/19/22 09:55 Date of discharge: 05/16/22 Attending physician: MELINDA BOWEN MD 04/19/22 09:51 Consult to Mental Health [CONS] Routine Reason For Exam: BIPOLAR WITH BEHAVIORAL DISTURBANCE Consult to Physician [CONS] Routine Comment: Consulting Provider: LORENA ADORNO Physician Instructions: Reason For Exam: ESRD Consult to Physician [CONS] Routine Comment: Consulting Provider: MICHELLE MADDOX Physician Instructions: Reason For Exam: SVT 04/19/22 09:55 Consult to Dietitian/Nutrition [CONS] Routine Physician Instructions: Reason For Exam: Reason for Consult: Malnutrition Consult to Physician [CONS] Routine Comment: Consulting Provider: QUINTON HALE Physician Instructions: Reason For Exam: SHOCK/SVT 04/19/22 09:59 Consult to Case Management [CONS] Routine Services Needed at Discharge: Floor Winder Notified:: NO Additional Physician Instructions: PLACEMENT 04/21/22 10:37 Speech Therapy Evaluation and Treat [CONS] Urgent Reason For Exam: speech eval 04/22/22 10:41 Consult to Dietitian/Nutrition [CONS] Routine Physician Instructions: Reason For Exam: Reason for Consult: Write/Manage Tube Feeding 04/26/22 12:10 Consult to Physician [CONS] Routine Comment: called office/ ashwin Consulting Provider: JOSH CABAN Physician Instructions: Reason For Exam: peg tube placement 04/28/22 09:35 Consult to Physician [CONS] Routine Comment: Consulting Provider: LEONORA SOTOMAYOR Physician Instructions: Reason For Exam: RIJ thrombus 05/01/22 13:17 Consult to Dietitian/Nutrition [CONS] Routine Physician Instructions: Reason For Exam: Reason for Consult: Write/Manage Tube Feeding 05/04/22 13:14 Consult to Physician [CONS] Routine Comment: Consulting Provider: GUI ANTONIO Physician Instructions: Reason For Exam: Sepsis 05/11/22 15:33 Consult to Physician [CONS] Routine Comment: Consulting Provider: MADI CHANDRA Physician Instructions: Reason For Exam: trach 05/11/22 19:00 Consult to Wound/ET Nurse [CONS] Stat Reason For Exam: wound eval- sacral and buttocks 05/12/22 10:02 Consult to PICC Line RN [CONS] Routine Reason For Exam: vasopressors Type Line:: PICC Primary care physician: INDER BAEZ Hospitalization Reason for admission: Acute Hypoxic Respiratory Failure Condition: Fair Hospital course: This is a 66-year-old female with HTN, GERD, seizure disorder, vascular dementia, ESRD on HD, chronic hypertension, bipolar, schizophrenia, anxiety admitted with acute hypoxic respiratory failure, acute on chronic hypotension, acute on chronic metabolic encephalopathy and SVT. Hospital Course to Date: 04/20: Patient went into Afib with RVR overnight, now on amiodarone gtt per cardio. Patient remains in AFib with RVR this am, HR in the 120-140s. BP brian nal on Levophed gtt, currently not a candidate for BB. Midodrine increased to 15mg TID. 2D Echo pending. On heparin gtt per protocol. No HD today per nephro due to hypotension and tachycardia. 04/21: Converted to SR this am, remains on Amiodarone and heparin. Awaiting cardio final recommendations. Still on Levophed gtt for low BP, given patient history of chronic hypotension, Wean pressor for MAP goal of 60s. Patient is pocketing foods, currently NPO, awaiting speech eval and treat. 04/22: Patient passed speech swallow eval yesterday, however, patient is refusing PO intakes including meds. Will insert DHT for nutrition and meds administration. Patient remains in SR this am, amiodaron gtt transitioned to PO per cardio. Patient remains on heparin and Levophed gtt. Patient has not received PO midrodrine for 24hrs, resume meds once DHT is inserted. Keep femoral CVC for another 24hrs, anticipating will be able to wean off pressor once patient receive midodrine. Will reassess in the morning. No HD overnight, unable to cannulate AVF, plan to attempt again today per Nephro. Possible IR/Vascular surgery consult if unsuccessful again today. 04/23: Mentation a lot better this am. DHT was inserted, meds resumed and TF initiated. Levophed gtt increased overnight due to worsen hypotension, suspected it is due to sedative agents. Seroquel decreased to 200mg BID and scheduled ativan switched to PRN. Continue midodrine TID and wean off levophed gtt for MAP goal of 60. Patient tolerated HD yesterday, continue iHD per Nephrology. CCM recommendations noted, Chest US ordered for pleural effusion. 04/24: RN instructed to wean Levophed off, goal MAP of 60. Heparin drip stopped due to decreasing hemoglobin. 04/25: ST had cleared the patient for pured diet which will be started today, hemodialysis planned for today, patient was to be anemic and will receive 1 unit PRBC with HD. We will increase midodrine to 20 mg 3 times daily if patient becomes hypotensive during dialysis. Per CCM. Decrease in seroqoul but will increase if needed 04/26: Patient agreeable to PEG, GI consulted for placement. Femoral line removed 04/27: No acute events reported overnight, patient has been cardiac cleared for PEG tube placement. Possible PEG in the a.m. This afternoon attempted to place IJ CVL which was unsuccessful and Dr. Mcguire ultimately placed femoral CVL for the initiation of Levophed. HD scheduled for today. 04/28: Patient initially started on Levophed yesterday and she received a femoral CVL. 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 Vascular surgery was consulted. Patient also noted to be anemic and received 1 unit PRBC today. 04/29: Possible hemodialysis today, patient was able to be weaned off of Levophed today. Hemoglobin responded well to 1 unit PRBC. Awaiting trach/PEG placement. Patient will not need to be started on heparin drip per vascular surgery. No acute events reported overnight. 04/30: HD yesterday without removal of fluids, patient needs NT suctioning. Updated son today. 05/01: Patient with increase mucous production and is unable to fully clear her airway, Rhonchi auscultated throughout her lungs this am. SPO2 at 90 to 94% on 3L NC. D/W CCM, patient is high risk for aspiration will placed patient on heated HF at 40L for now instead of Bipap. Nasal bleeding also noted, mostly due to NT suctioning. Refrain from NT suctioning for now due to bleeding, only oral suctioning. PO seroquel held this amP atient is AAO, appropriate, and following commands. Levophed gtt weaned off, patient remains hemodynamically stable. Will discuss Nephro for possible fluid removal tonight or early tomorrow. Very low threshold for intubation. Patient's condition and plan of care, including possible intubation, thoroughly discussed with patient's son-Raymundo Randolph at . Patient's son verbalized understanding of the info provided and agreed with intubation if necessary. 05/02: Remains on HHFL at 40% and 40L, mentation is unchanged. HD at the bedside, plan for possible UF with fluid removal today. Continue O2 supplementation and wean as tolerated, for SPO2 above 92%. Repeat CXR in the am. Patient vital signs remains stable, still off pressors. Plan for possible PEG-tube placement by GI tomorrow, NPO after MN. Possible fistulogram for RIJ thrombus on or sunday per Vascular Surgery. 05/03: Complete white-out of right side from this am CXR, probable mucus plug. S/p intubation and bronch at the bedside by [facility]. Patient remains sedated and required short duration of Levophed gtt during the procedure. Pressor was wean off, VSS. Plan for CPT and mucomyst Q12hrs. Repeat CXR in the am. PEG-Tube placement postpone for possibly tomorrow if patient remains stable. Possible fistulogram for RIJ thrombus on or Sunday per Vascular Surgery. 05/04: Remains on the vent, easily arousable. High fevers overnight with spike in leukocytosis, now on 2 pressors. [facility] d/w ID, recommendations to repeat blood cultures and empiric IV abx- Cefepine and Vanco. low H&H this am, no s/s of any active bleeding, 1units of PRBCs during iHD today. S/p PEG-tube placement at this bedside this am by , no complications noted. Resume TF once clear by GI. 05/05: Remains on low vent setting. This am CXR with increase opacities on the right side again today, s/p therapeutic bronch at the bedside today by [facility]. Repeat CXR in the am. Remains with low grade fevers and on 2 pressors. Bronchial wash with Staph A. and blood cultures pending. Continue current IV Abx per ID. 05/06: Stable on the vent this am. Only on low dose pressors, MAP above 65. CXR with some improvement, peep dropped to 8 per CCM. Continue CPT and Mucomyst TID. If patient remains stable overnight, possible PSV trial in the am. Fevers and leukocytosis improved. Continue current IV Abx per ID. Continue iHD per Nephro 05/07: Remains stable on the vent, afebrile and off pressors this am VSS. This am CXR reviewed, increased opacities on the right side. Patient remains on low vent settings. Further management per [facility], continue CPT and Mucomyst TID. Bronch wash with MRSA, blood cultures pending. Continue current IV Abx per ID. 05/08: We will replete potassium, [facility] would like a CTA chest but evaluate atelectasis/consolidation/effusions. LTAC evaluation 05/09: HD today, CTA chest completed. CPAP yesterday but rested on AC overnight. 05/10: Patient discharge will be delayed till tomorrow due to bed unavailability at LTAC facility, no acute distress overnight. Patient placed on PSV but failed. 05/11: Transferred to LTAC has been delayed. Patient received hemodialysis today. Patient CPAP trial and she fell today. No acute events reported overnight. 05/12: Overnight patient was restarted on Levophed, patient was scheduled for tracheostomy and noted drop in hemoglobin therefore patient was ordered to be transfused for 1 unit. Patient did receive dialysis yesterday. Due to the use of vasopressors surgery was canceled. Patient did have 1 spike in temperature to 101 and given increase in WBC patient was started on IV cefepime for 3 days to complete her 8-day therapy as recommended by infectious disease. 05/13: Patient remains on Levophed. He received PRBC yesterday. Blood pressure continues to be labile. RN to wean as tolerated. CPAP trial today 05/14: Patient received hemodialysis yesterday. She has been weaned off of Levophed. Patient attempted on PSV today. Trach tentatively scheduled for tomorrow. 05/15: Patient received a tracheostomy today. No acute events reported overnight. Remains off of Levophed. Nephrology would like to order fludrocortisone/Solu-Cortef. 05/16: Patient remains stable on the vent, trach site with no s/s of any complications. Off pressors this am, VSS. Plan for iHD this morning, possible discharge to LTAC this afternoon after HD. Neuro: h/o vascular dementia, schizophrenia, bipolar, anxiety disorder -Continue Seroquel -As needed Ativan -Reorientation as needed -Maintain sleep-wake cycle -As needed analgesia -Continue home memantine, respiradol, valproic acid -CT head showed no acute intracranial abnormalities, no significant interval changes -Psych consulted, appreciate recommendations Cardiac: SVT s/p cardioversion, chronic hypotension, NSTEMI type II -Cardiology consulted, appreciate recommendations -Blood pressure monitoring per protocol -s/p vasopressor support with Levophed -Cortisol 24.4 -s/p Fludrocortisone for 4 doses -Midodrine 20mg TID -Echo 01/31/2022-EF 60 to 65%. Doppler flow pattern suggests impaired LV relaxation. Right ventricle systolic function is normal trace aortic regurgitation. Trace mitral regurgitation. -Lipitor, Plavix Respiratory: Acute hypoxic respiratory failure -CCM consulted, appreciate recommendations -04/23 Chest ultrasound showed bilateral pleural effusions, right greater than left -Intubated 05/03 with 7.5 oett at 22 at the lips -05/03 bronch at bedside -05/05 therapeutic bronch at the bedside -ABG abg and CXR noted -AM vent settings: AC Rate 14, TV 450, Peep 6, FiO2 30% -See RT notes for titration -Trach 05/15 -Pulmonary hygiene -SPO2 monitor per protocol -CTA chest with contrast shows large right and moderate-sized left pleural effusions with moderate body wall edema, groundglass pulmonary opacities in the upper lobes likely representing atypical pneumonia, no CT evidence of pulmonary embolism. -Chest US showed right pleural and she received a bedside thoracentesis 05/09 GI: Moderate protein calorie malnutrition, dysphagia s/p PEG -s/p peg tube placement on 05/04 by GI -Continue PPI -Continue enteral nutrition -Nutrition consulted -BR: Senponceot : ESRD on HD -Nephrology consulted, appreciate recommendations -HD per nephrology (TThSat) -Monitor intake and output -Renally dose medications -Avoid nephrotoxic medications -Epogen 3 times daily -Nephrology to try hydrocortisone/fludocortisone -Trend BMP ID: Septic Shock (unable to determine status), MRSA PNA -ID consulted, appreciate recommendations -f/u blood culture -04/19 blood cultures x2 NGTD, bronch wash with MRSA -ABX therapy with vanco and cefepime -Monitor WBC and temperature curve Endo: NAD -Avoid hypoglycemia Heme: Anemia of chronic disease, RIJ thrombus (chronic) -Vascular surgery consulted, appreciate recommendations -no need for heparin gtt per vascular surgery -HIT pending -Trend CBC -Transfuse hemoglobin less than 7 -s/p 4 unit PRBC -Epogen 3 times daily -SCDs to BLE while in bed Disposition: [facility] Final Discharge Diagnosis (Prints w/discharge instructions): Respiratory Failure s/p Tracheostomy. Septic shock Time spent for discharge: 35 Core Measure Documentation - Palliative Care Palliative Care/ Comfort Measures: Not Applicable - Core Measures Any of the following diagnoses?: DVT/PE - VTE Discharge Requirements Deep Vein Thrombosis/Pulmonary Embolism Present on Admission: Yes Has pt received <5 days of overlap therapy or INR<2.0: No (AC held due to thrombocytopenia and anemia requiring blood products) Anticoagulant overlap therapy prescribed at discharge: No Contraindication No Overlap Therapy order at DC: Medical Contraindication Exam - Physical Exam Narrative exam: General appearance: Present: No acute distress, well-nourished, obese, Other (Tr ached and stable on the vent) - EENT Eyes: Present: PERRL ENT: hearing intact, poor dentition - Neck Neck: Present: normal ROM - Respiratory Respiratory effort: normal Respiratory: bilateral: diminished - Cardiovascular Rhythm: irregularly irregular Heart Sounds: Present: S1 & S2 - Extremities Extremities: no ischemia, pulses intact, pulses symmetrical Extremity abnormal: edema - Peripheral Assessment Generalized Edema Type: pitting Edema Degree: 2+ Capillary Refill: < 3 seconds Skin Temperature: Warm Peripheral Pulses: within normal limits Right Upper Extremity Edema Type: pitting Edema Degree: 3+ Capillary Refill: < 3 seconds Skin Temperature: Warm Peripheral Pulses: within normal limits - Abdominal General gastrointestinal: soft, non-distended, normal bowel sounds - Integumentary Integumentary: Present: warm, dry - Psychiatric Psychiatric: appropriate mood/affect, cooperative, other (Awake and alert, following commands) - Neurologic Neurologic: moves all extremities, other (Awake and alert, following commands) - Allied Health Allied health notes reviewed: nursing, case management - Constitutional Vitals: Temp Pulse Resp BP Pulse Ox 98.2 F 104 H 13 99/60 100 05/16/22 07:25 05/16/22 12:15 05/16/22 11:01 05/16/22 12:15 05/16/22 11:01 Plan Activity: advance as tolerated, other (OOB to chair) Diet: other (Enteral Nutrition) Wound: open to air Follow up with: INDER BAEZ MD [Primary Care Provider] - 7 Days <MELINDA BOWEN - Last Filed: 05/17/22 07:26> Providers - Providers Date of Admission: 04/19/22 09:55 Attending physician: MELINDA BOWEN MD 04/19/22 09:51 Consult to Mental Health [CONS] Routine Reason For Exam: BIPOLAR WITH BEHAVIORAL DISTURBANCE Consult to Physician [CONS] Routine Comment: Consulting Provider: LORENA ADORNO Physician Instructions: Reason For Exam: ESRD Consult to Physician [CONS] Routine Comment: Consulting Provider: MICHELLE MADDOX Physician Instructions: Reason For Exam: SVT 04/19/22 09:55 Consult to Dietitian/Nutrition [CONS] Routine Physician Instructions: Reason For Exam: Reason for Consult: Malnutrition Consult to Physician [CONS] Routine Comment: Consulting Provider: QUINTON HALE Physician Instructions: Reason For Exam: SHOCK/SVT 04/19/22 09:59 Consult to Case Management [CONS] Routine Services Needed at Discharge: Floor Winder Notified:: NO Additional Physician Instructions: PLACEMENT 04/21/22 10:37 Speech Therapy Evaluation and Treat [CONS] Urgent Reason For Exam: speech eval 04/22/22 10:41 Consult to Dietitian/Nutrition [CONS] Routine Physician Instructions: Reason For Exam: Reason for Consult: Write/Manage Tube Feeding 04/26/22 12:10 Consult to Physician [CONS] Routine Comment: called office/ ashwin Consulting Provider: JOSH CABAN Physician Instructions: Reason For Exam: peg tube placement 04/28/22 09:35 Consult to Physician [CONS] Routine Comment: Consulting Provider: LEONORA SOTOMAYOR Physician Instructions: Reason For Exam: RIJ thrombus 05/01/22 13:17 Consult to Dietitian/Nutrition [CONS] Routine Physician Instructions: Reason For Exam: Reason for Consult: Write/Manage Tube Feeding 05/04/22 13:14 Consult to Physician [CONS] Routine Comment: Consulting Provider: GUI ANTONIO Physician Instructions: Reason For Exam: Sepsis 05/11/22 15:33 Consult to Physician [CONS] Routine Comment: Consulting Provider: MADI CHANDRA Physician Instructions: Reason For Exam: trach 05/11/22 19:00 Consult to Wound/ET Nurse [CONS] Stat Reason For Exam: wound eval- sacral and buttocks 05/12/22 10:02 Consult to PICC Line RN [CONS] Routine Reason For Exam: vasopressors Type Line:: PICC Primary care physician: INDER BAEZ Hospitalization Hospital course: I saw and evaluated the patient. I agree with the findings and the plan of care as documented in the Nurse Practitioner's~note, with the following corrections and additions. Exam - Constitutional Vitals: Temp Pulse Resp BP Pulse Ox 98.1 F 91 H 14 115/56 98 05/16/22 16:00 05/16/22 16:00 05/16/22 16:00 05/16/22 16:00 05/16/22 16:00
[2022-05-16] MEDS: EPOETIN ALFA-EPBX 20,000 UNIT/1 ML VIAL IV PRN (13:38)
--- NOTE | 2022-05-16 14:22 | Progress Note ---
Assessment and Plan Cultures: 04/19/2022 blood culture: No growth 05/03/2022 respiratory culture: MRSA 05/04/2022 blood culture: 1 out of 4 bottles with coagulase-negative staph 05/09/2022 pleural fluid: No growth A/P: 66-year-old female with hypertension, GERD, seizure disorder, ESRD on HD, bipolar disorder, schizophrenia, anxiety was admitted on 04/19/2022 with altered mental status: #Septic shock: Resolved, off pressors #Bilateral pneumonia: Secondary to MRSA, completed antibiotics. #Coagulase-negative staph bacteremia: 1 out of 4 bottles positive on 05/04/2022, likely contaminant. Anyways got vancomycin for MRSA pneumonia. #ESRD on HD: Renally adjust antibiotics. #Acute hypoxic respiratory failure: On mechanical ventilation. S/P trach and PEG. #Pleural effusion: S/p thoracentesis on 05/09/2022, culture with no growth #SVT s/p cardioversion Recs: -remains off abx since 05/14/2022. Gloria Cardenas MD, FACP, [facility] O: [phone] F: [phone] C: [phone] Subjective Date of service: 05/16/22 Principal diagnosis: Neurogenic Dysphagia Interval history: No fever. Underwent trach yesterday. Remains on the vent. Objective - Exam Narrative Exam: Physical Exam: Constitutional: on the vent Head, Ears, Nose: Normocephalic, atraumatic. External ears, nose normal Eyes: Conjunctivae/corneas clear. No icterus. No ptosis. Neck: trach + Oral: intubated Cardiovascular: S1, S2 + Respiratory: AE fair bilaterally and equal GI: Soft, bowel sounds +, PEG + Musculoskeletal: Edema + Skin: No rash or abscess Hem/Lymphatic: No palpable cervical or supraclavicular nodes. No lymphangitis Psych: no agitation Neurological: opens eyes, on the vent, exam limited - Constitutional Vitals: Vital Signs Temp Pulse Resp BP Pulse Ox 98.2 F 100 H 14 122/55 100 05/16/22 07:25 05/16/22 13:46 05/16/22 13:46 05/16/22 13:38 05/16/22 12:46 Temperature -Last 24 Hours Temperature 98.2 F Temperature 98.0 F Temperature 97.9 F Temperature 98.9 F Temperature 98.2 F - Labs CBC & Chem 7: 05/14/22 05:36 05/15/22 11:13 Labs: Abnormal lab results 05/09/22 05/16/22 05/16/22 Range/Units Unknown 01:17 04:30 ABG pH 7.486 H (7.350-7.450) pH Units ABG HCO3 29.5 H (20.0-26.0) mmol/L ABG Base Excess 5.7 H (-2.0-3.0) mmol/L ABG Hemoglobin 8.4 L (12.0-16.0) gm/dl POC Glucose 133 H (70-105) mg/dL Fluid Total Protein < 3.0 L (15.0-45.0) 05/16/22 Range/Units 05:19 ABG pH (7.350-7.450) pH Units ABG HCO3 (20.0-26.0) mmol/L ABG Base Excess (-2.0-3.0) mmol/L ABG Hemoglobin (12.0-16.0) gm/dl POC Glucose 161 H (70-105) mg/dL Fluid Total Protein (15.0-45.0)
--- NOTE | 2022-05-16 15:52 | Progress Note ---
Assessment and Plan 66 yo F s/p tracheostomy, fiberoptic bronchoscopy, POD 1 1. VDRF Vent: Fio2: 30%, PEEP 6 COVID-negative Plan: 1. Vent management per ICU team 2. Trach management per protocol. Trach sutures can be removed on POD 5 3. Pt being discharged to LTAC today. Will s/o Thank you, please call with questions. Evaluation and treatment of this patient was during the time of the national and state emergency arising from COVID19 coronavirus pandemic. Treatment and procedures performed meet the current and available best practice and guidelines for patient during the COVID pandemic. Subjective Date of service: 05/16/22 Narrative: Pt seen and examined. No overnight events. Objective Vital Signs - 12hr 05/16/22 05/16/22 05/16/22 04:00 05:00 05:23 Temperature Pulse Rate 92 H 88 89 Pulse Rate [ Anterior Bilateral Throughout] Pulse Rate [ From Monitor] Respiratory 14 14 14 Rate Respiratory Rate [Anterior Bilateral Throughout] Blood Pressure 106/50 110/49 O2 Sat by Pulse 100 100 99 Oximetry O2 Sat by Pulse Oximetry [ Anterior Bilateral Throughout] 05/16/22 05/16/22 05/16/22 06:00 07:00 07:25 Temperature 98.2 F Pulse Rate 99 H 103 H Pulse Rate [ Anterior Bilateral Throughout] Pulse Rate [ From Monitor] Respiratory 14 14 Rate Respiratory Rate [Anterior Bilateral Throughout] Blood Pressure 113/57 115/57 O2 Sat by Pulse 98 99 Oximetry O2 Sat by Pulse Oximetry [ Anterior Bilateral Throughout] 05/16/22 05/16/22 05/16/22 08:00 08:45 08:48 Temperature Pulse Rate 114 H 113 H Pulse Rate [ 113 H Anterior Bilateral Throughout] Pulse Rate [ 110 H From Monitor] Respiratory 14 Rate Respiratory 15 Rate [Anterior Bilateral Throughout] Blood Pressure 115/61 115/61 O2 Sat by Pulse 97 99 Oximetry O2 Sat by Pulse Oximetry [ Anterior Bilateral Throughout] 05/16/22 05/16/22 05/16/22 09:00 10:00 11:00 Temperature Pulse Rate 110 H 99 H 103 H Pulse Rate [ Anterior Bilateral Throughout] Pulse Rate [ From Monitor] Respiratory 13 14 14 Rate Respiratory Rate [Anterior Bilateral Throughout] Blood Pressure 120/69 108/51 108/51 O2 Sat by Pulse 100 100 100 Oximetry O2 Sat by Pulse Oximetry [ Anterior Bilateral Throughout] 0805/16/22 05/16/22 11:01 11:38 11:45 Temperature Pulse Rate 102 H 99 H 101 H Pulse Rate [ Anterior Bilateral Throughout] Pulse Rate [ From Monitor] Respiratory 13 Rate Respiratory Rate [Anterior Bilateral Throughout] Blood Pressure 121/65 103/56 120/57 O2 Sat by Pulse Oximetry O2 Sat by Pulse 100 Oximetry [ Anterior Bilateral Throughout] 05/16/22 05/16/22 05/16/22 12:00 12:15 12:30 Temperature Pulse Rate 104 H 104 H 104 H Pulse Rate [ Anterior Bilateral Throughout] Pulse Rate [ From Monitor] Respiratory 12 Rate Respiratory Rate [Anterior Bilateral Throughout] Blood Pressure 105/59 99/60 109/75 O2 Sat by Pulse 99 Oximetry O2 Sat by Pulse Oximetry [ Anterior Bilateral Throughout] 05/16/22 05/16/22 05/16/22 12:45 12:46 13:00 Temperature Pulse Rate 103 H 105 H 103 H Pulse Rate [ Anterior Bilateral Throughout] Pulse Rate [ From Monitor] Respiratory Rate Respiratory Rate [Anterior Bilateral Throughout] Blood Pressure 110/56 110/56 117/57 O2 Sat by Pulse 100 Oximetry O2 Sat by Pulse Oximetry [ Anterior Bilateral Throughout] 05/16/22 05/16/22 05/16/22 13:15 13:30 13:38 Temperature Pulse Rate 106 H 107 H 100 H Pulse Rate [ Anterior Bilateral Throughout] Pulse Rate [ From Monitor] Respiratory Rate Respiratory Rate [Anterior Bilateral Throughout] Blood Pressure 105/59 120/49 122/55 O2 Sat by Pulse Oximetry O2 Sat by Pulse Oximetry [ Anterior Bilateral Throughout] 05/16/22 05/16/22 13:46 14:00 Temperature 98.0 F Pulse Rate 96 H Pulse Rate [ 100 H Anterior Bilateral Throughout] Pulse Rate [ From Monitor] Respiratory 17 Rate Respiratory 14 Rate [Anterior Bilateral Throughout] Blood Pressure 107/53 O2 Sat by Pulse Oximetry O2 Sat by Pulse 100 Oximetry [ Anterior Bilateral Throughout] - General physical appearance Narrative Exam: Gen.: On ventilator. NAD ENT: Tracheostomy tube in place - site c/d/i without swelling. No lymphadenopathy. No scleral icterus or conjunctival pallor CV: S1, S2 present Respiratory: No audible wheezes Abdomen: Soft, nondistended, nontender. PEG. No rebound, rigidity, guarding Extremities: No clubbing, cyanosis, edema - Labs 05/14/22 05:36 05/15/22 11:13
[2022-05-16 16:35] VITALS: BP 115/56
--- NOTE | 2022-05-17 15:32 | Progress Note ---
Subjective Principal diagnosis: Neurogenic Dysphagia Objective Constitutional: no acute distress, asleep, other ( Resting assist control mechanical ventilation.) Eyes: non-icteric ENT: oropharynx moist, oropharyngeal exudate pre (clear frothy) Neck: supple, no lymphadenopathy, no JVD Effort: mildly labored Ascultation: Bilateral: clear, diminished breath sounds, rales, rhonchi, other (referred upper airway sounds) Percussion: Bilateral: not dull Cardiovascular: regular rate and rhythm, other (S1,S2) Gastrointestinal: normoactive bowel sounds, soft, non-tender, non-distended, other (PEG) Integumentary: normal Extremities: no cyanosis, pulses normal, no ischemia or petechiae, edema (bilateral upper extremities) Neurologic: non-focal exam (grossly), pupils equal and round, other (sedated resting on mechanical ventilation.) Psychiatric: other (Sedated, sleeping. Not responding to verbal stimuli.) CBC and BMP: 05/14/22 05:36 05/15/22 11:13 ABG, PT/INR, D-dimer: ABG ABG pH 7.486 pH Units (7.350-7.450) H 05/16/22 04:30 ABG pCO2 40.0 mm Hg 05/16/22 04:30 ABG pO2 89.9 mm Hg (80.0-90.0) 05/16/22 04:30 ABG O2 Saturation 97.4 % (95.0-99.0) 05/16/22 04:30 PT/INR, D-dimer PT 15.4 Sec. (12.2-14.9) H 05/12/22 04:11 INR 1.09 (0.87-1.13) 05/12/22 04:11 Abnormal lab findings: Abnormal Labs 04/19/22 04/19/22 04/19/22 04:53 04:53 04:53 WBC RBC 3.06 L Hgb 8.6 L Hct 28.0 L RDW 16.3 H Plt Count Lymph % (Auto) [place] % (Auto) 11.3 H Lymph # (Auto) [place] # (Auto) Seg Neutrophils % Seg Neuts % (Manual) Lymphocytes % (Manual) Nucleated RBC % Seg Neutrophils # Seg Neutrophils # Man Lymphocytes # (Manual) PT INR APTT Heparin Anti-Xa Level ABG pH ABG pO2 ABG HCO3 ABG Base Excess ABG Hemoglobin Oxyhemoglobin Sodium Potassium 5.1 H Chloride Carbon Dioxide 21 L BUN 94 H Creatinine 6.3 H Glucose POC Glucose Phosphorus Magnesium Alkaline Phosphatase Troponin T 0.415 H* Total Protein Albumin 2.7 L Free T4 0.28 L Fluid Total Protein Crossmatch 04/19/22 04/19/22 04/20/22 19:40 19:40 05:30 WBC 4.1 L RBC 2.97 L Hgb 8.5 L 8.2 L Hct 27.8 L 27.1 L RDW 17.0 H Plt Count Lymph % (Auto) [place] % (Auto) 15.2 H Lymph # (Auto) 1.1 L [place] # (Auto) Seg Neutrophils % Seg Neuts % (Manual) Lymphocytes % (Manual) Nucleated RBC % Seg Neutrophils # Seg Neutrophils # Man Lymphocytes # (Manual) PT 17.9 H INR 1.28 H APTT 199.1 H* Heparin Anti-Xa Level ABG pH ABG pO2 ABG HCO3 ABG Base Excess ABG Hemoglobin Oxyhemoglobin Sodium Potassium Chloride Carbon Dioxide BUN Creatinine Glucose POC Glucose Phosphorus Magnesium Alkaline Phosphatase Troponin T Total Protein Albumin Free T4 Fluid Total Protein Crossmatch 04/20/22 04/20/22 04/21/22 05:30 18:23 00:29 WBC RBC Hgb Hct RDW Plt Count Lymph % (Auto) [place] % (Auto) Lymph # (Auto) [place] # (Auto) Seg Neutrophils % Seg Neuts % (Manual) Lymphocytes % (Manual) Nucleated RBC % Seg Neutrophils # Seg Neutrophils # Man Lymphocytes # (Manual) PT INR APTT Heparin Anti-Xa Level 0.17 L ABG pH ABG pO2 ABG HCO3 ABG Base Excess ABG Hemoglobin Oxyhemoglobin Sodium Potassium Chloride Carbon Dioxide 21 L BUN 95 H Creatinine 6.6 H Glucose 139 H POC Glucose Phosphorus Magnesium 2.60 H Alkaline Phosphatase Troponin T Total Protein Albumin 2.4 L Free T4 Fluid Total Protein Crossmatch 04/21/22 04/21/22 04/22/22 04:00 04:00 03:45 WBC RBC 2.74 L Hgb 7.7 L Hct 24.7 L RDW 16.6 H Plt Count Lymph % (Auto) [place] % (Auto) Lymph # (Auto) [place] # (Auto) Seg Neutrophils % Seg Neuts % (Manual) Lymphocytes % (Manual) Nucleated RBC % Seg Neutrophils # Seg Neutrophils # Man Lymphocytes # (Manual) PT INR APTT Heparin Anti-Xa Level < 0.10 L ABG pH ABG pO2 ABG HCO3 ABG Base Excess ABG Hemoglobin Oxyhemoglobin Sodium 133 L Potassium Chloride Carbon Dioxide 20 L BUN 89 H Creatinine 6.6 H Glucose 131 H POC Glucose Phosphorus 6.40 H Magnesium 2.50 H Alkaline Phosphatase Troponin T Total Protein Albumin Free T4 Fluid Total Protein Crossmatch 04/22/22 04/22/22 04/22/22 03:45 12:13 14:30 WBC RBC Hgb Hct RDW Plt Count Lymph % (Auto) [place] % (Auto) Lymph # (Auto) [place] # (Auto) Seg Neutrophils % Seg Neuts % (Manual) Lymphocytes % (Manual) Nucleated RBC % Seg Neutrophils # Seg Neutrophils # Man Lymphocytes # (Manual) PT INR APTT Heparin Anti-Xa Level 0.11 L 0.11 L ABG pH ABG pO2 ABG HCO3 ABG Base Excess ABG Hemoglobin Oxyhemoglobin Sodium 136 L Potassium Chloride Carbon Dioxide 18 L BUN 90 H Creatinine 6.3 H Glucose 121 H POC Glucose Phosphorus 6.50 H Magnesium Alkaline Phosphatase Troponin T Total Protein Albumin Free T4 Fluid Total Protein Crossmatch 04/22/22 04/23/22 04/23/22 23:08 02:17 04:10 WBC RBC Hgb 7.3 L Hct 23.3 L RDW Plt Count Lymph % (Auto) [place] % (Auto) Lymph # (Auto) [place] # (Auto) Seg Neutrophils % Seg Neuts % (Manual) Lymphocytes % (Manual) Nucleated RBC % Seg Neutrophils # Seg Neutrophils # Man Lymphocytes # (Manual) PT INR APTT Heparin Anti-Xa Level 0.14 L ABG pH ABG pO2 ABG HCO3 ABG Base Excess ABG Hemoglobin Oxyhemoglobin Sodium Potassium Chloride Carbon Dioxide BUN Creatinine Glucose POC Glucose 153 H Phosphorus Magnesium Alkaline Phosphatase Troponin T Total Protein Albumin Free T4 Fluid Total Protein Crossmatch 04/23/22 04/23/22 04/23/22 04:10 06:09 23:22 WBC RBC Hgb Hct RDW Plt Count Lymph % (Auto) [place] % (Auto) Lymph # (Auto) [place] # (Auto) Seg Neutrophils % Seg Neuts % (Manual) Lymphocytes % (Manual) Nucleated RBC % Seg Neutrophils # Seg Neutrophils # Man Lymphocytes # (Manual) PT INR APTT Heparin Anti-Xa Level ABG pH ABG pO2 ABG HCO3 ABG Base Excess ABG Hemoglobin Oxyhemoglobin Sodium Potassium Chloride Carbon Dioxide BUN 36 H Creatinine 3.4 H Glucose 131 H POC Glucose 141 H 114 H Phosphorus Magnesium Alkaline Phosphatase Troponin T Total Protein Albumin Free T4 Fluid Total Protein Crossmatch 04/24/22 04/24/22 04/24/22 02:10 04:00 04:00 WBC RBC 2.48 L Hgb 7.1 L Hct 22.6 L RDW 16.9 H Plt Count Lymph % (Auto) [place] % (Auto) Lymph # (Auto) [place] # (Auto) Seg Neutrophils % Seg Neuts % (Manual) Lymphocytes % (Manual) Nucleated RBC % Seg Neutrophils # Seg Neutrophils # Man Lymphocytes # (Manual) PT INR APTT Heparin Anti-Xa Level 0.12 L ABG pH ABG pO2 ABG HCO3 ABG Base Excess ABG Hemoglobin Oxyhemoglobin Sodium 134 L Potassium Chloride Carbon Dioxide BUN 42 H Creatinine 3.9 H Glucose 141 H POC Glucose Phosphorus Magnesium Alkaline Phosphatase Troponin T Total Protein Albumin Free T4 Fluid Total Protein Crossmatch 04/24/22 04/24/22 04/24/22 05:03 10:20 11:24 WBC RBC Hgb Hct RDW Plt Count Lymph % (Auto) [place] % (Auto) Lymph # (Auto) [place] # (Auto) Seg Neutrophils % Seg Neuts % (Manual) Lymphocytes % (Manual) Nucleated RBC % Seg Neutrophils # Seg Neutrophils # Man Lymphocytes # (Manual) PT INR APTT Heparin Anti-Xa Level < 0.10 L ABG pH ABG pO2 ABG HCO3 ABG Base Excess ABG Hemoglobin Oxyhemoglobin Sodium Potassium Chloride Carbon Dioxide BUN Creatinine Glucose POC Glucose 142 H 144 H Phosphorus Magnesium Alkaline Phosphatase Troponin T Total Protein Albumin Free T4 Fluid Total Protein Crossmatch 04/25/22 04/25/22 04/25/22 00:15 04:11 04:11 WBC 4.4 L RBC 2.38 L Hgb 6.7 L Hct 21.7 L RDW 17.2 H Plt Count Lymph % (Auto) [place] % (Auto) Lymph # (Auto) [place] # (Auto) Seg Neutrophils % Seg Neuts % (Manual) Lymphocytes % (Manual) Nucleated RBC % Seg Neutrophils # Seg Neutrophils # Man Lymphocytes # (Manual) PT INR APTT Heparin Anti-Xa Level ABG pH ABG pO2 ABG HCO3 ABG Base Excess ABG Hemoglobin Oxyhemoglobin Sodium 134 L Potassium Chloride 97.1 L Carbon Dioxide BUN 47 H Creatinine 4.3 H Glucose 106 H POC Glucose 136 H Phosphorus Magnesium Alkaline Phosphatase Troponin T Total Protein Albumin Free T4 Fluid Total Protein Crossmatch 04/25/22 04/25/22 04/25/22 06:01 15:30 22:44 WBC RBC Hgb 8.8 L Hct 28.1 L D RDW Plt Count Lymph % (Auto) [place] % (Auto) Lymph # (Auto) [place] # (Auto) Seg Neutrophils % Seg Neuts % (Manual) Lymphocytes % (Manual) Nucleated RBC % Seg Neutrophils # Seg Neutrophils # Man Lymphocytes # (Manual) PT INR APTT Heparin Anti-Xa Level ABG pH ABG pO2 ABG HCO3 ABG Base Excess ABG Hemoglobin Oxyhemoglobin Sodium Potassium Chloride Carbon Dioxide BUN Creatinine Glucose POC Glucose 137 H Phosphorus Magnesium Alkaline Phosphatase Troponin T Total Protein Albumin Free T4 Fluid Total Protein Crossmatch See Detail 04/26/22 04/27/22 04/27/22 04:20 04:45 04:45 WBC RBC 2.81 L 3.13 L Hgb 8.0 L 9.0 L Hct 25.4 L 29.1 L RDW 16.2 H 17.4 H Plt Count Lymph % (Auto) [place] % (Auto) Lymph # (Auto) [place] # (Auto) Seg Neutrophils % Seg Neuts % (Manual) Lymphocytes % (Manual) Nucleated RBC % Seg Neutrophils # Seg Neutrophils # Man Lymphocytes # (Manual) PT INR APTT Heparin Anti-Xa Level ABG pH ABG pO2 ABG HCO3 ABG Base Excess ABG Hemoglobin Oxyhemoglobin Sodium 131 L Potassium Chloride 93.5 L Carbon Dioxide BUN 44 H Creatinine 3.9 H Glucose 135 H POC Glucose Phosphorus Magnesium Alkaline Phosphatase Troponin T Total Protein Albumin Free T4 Fluid Total Protein Crossmatch 04/27/22 04/28/22 04/28/22 23:38 05:26 07:54 WBC 11.1 H RBC 2.40 L Hgb 6.9 L Hct 22.1 L D RDW 17.2 H Plt Count Lymph % (Auto) [place] % (Auto) Lymph # (Auto) [place] # (Auto) Seg Neutrophils % Seg Neuts % (Manual) Lymphocytes % (Manual) Nucleated RBC % Seg Neutrophils # Seg Neutrophils # Man Lymphocytes # (Manual) PT INR APTT Heparin Anti-Xa Level ABG pH ABG pO2 ABG HCO3 ABG Base Excess ABG Hemoglobin Oxyhemoglobin Sodium Potassium Chloride Carbon Dioxide BUN Creatinine Glucose POC Glucose 229 H 169 H Phosphorus Magnesium Alkaline Phosphatase Troponin T Total Protein Albumin Free T4 Fluid Total Protein Crossmatch 04/28/22 04/28/22 04/29/22 12:31 17:54 00:49 WBC RBC Hgb Hct RDW Plt Count Lymph % (Auto) [place] % (Auto) Lymph # (Auto) [place] # (Auto) Seg Neutrophils % Seg Neuts % (Manual) Lymphocytes % (Manual) Nucleated RBC % Seg Neutrophils # Seg Neutrophils # Man Lymphocytes # (Manual) PT INR APTT Heparin Anti-Xa Level ABG pH ABG pO2 ABG HCO3 ABG Base Excess ABG Hemoglobin Oxyhemoglobin Sodium Potassium Chloride Carbon Dioxide BUN Creatinine Glucose POC Glucose 132 H 138 H 189 H Phosphorus Magnesium Alkaline Phosphatase Troponin T Total Protein Albumin Free T4 Fluid Total Protein Crossmatch 04/29/22 04/29/22 04/29/22 06:42 10:54 10:54 WBC 11.8 H RBC 2.93 L Hgb 8.6 L Hct 26.2 L RDW 16.8 H Plt Count Lymph % (Auto) [place] % (Auto) Lymph # (Auto) [place] # (Auto) Seg Neutrophils % Seg Neuts % (Manual) Lymphocytes % (Manual) Nucleated RBC % Seg Neutrophils # Seg Neutrophils # Man Lymphocytes # (Manual) PT INR APTT Heparin Anti-Xa Level ABG pH ABG pO2 ABG HCO3 ABG Base Excess ABG Hemoglobin Oxyhemoglobin Sodium 129 L Potassium Chloride 91.5 L Carbon Dioxide BUN 46 H Creatinine 3.1 H Glucose 180 H POC Glucose 196 H Phosphorus Magnesium Alkaline Phosphatase Troponin T Total Protein Albumin Free T4 Fluid Total Protein Crossmatch 04/29/22 04/29/22 04/30/22 12:03 23:32 05:57 WBC RBC Hgb Hct RDW Plt Count Lymph % (Auto) [place] % (Auto) Lymph # (Auto) [place] # (Auto) Seg Neutrophils % Seg Neuts % (Manual) Lymphocytes % (Manual) Nucleated RBC % Seg Neutrophils # Seg Neutrophils # Man Lymphocytes # (Manual) PT INR APTT Heparin Anti-Xa Level ABG pH ABG pO2 ABG HCO3 ABG Base Excess ABG Hemoglobin Oxyhemoglobin Sodium Potassium Chloride Carbon Dioxide BUN Creatinine Glucose POC Glucose 169 H 170 H 151 H Phosphorus Magnesium Alkaline Phosphatase Troponin T Total Protein Albumin Free T4 Fluid Total Protein Crossmatch 04/30/22 04/30/22 04/30/22 11:28 16:39 23:22 WBC RBC Hgb Hct RDW Plt Count Lymph % (Auto) [place] % (Auto) Lymph # (Auto) [place] # (Auto) Seg Neutrophils % Seg Neuts % (Manual) Lymphocytes % (Manual) Nucleated RBC % Seg Neutrophils # Seg Neutrophils # Man Lymphocytes # (Manual) PT INR APTT Heparin Anti-Xa Level ABG pH ABG pO2 ABG HCO3 ABG Base Excess ABG Hemoglobin Oxyhemoglobin Sodium Potassium Chloride Carbon Dioxide BUN Creatinine Glucose POC Glucose 159 H 147 H 170 H Phosphorus Magnesium Alkaline Phosphatase Troponin T Total Protein Albumin Free T4 Fluid Total Protein Crossmatch 05/01/22 05/01/22 05/01/22 04:00 05:34 15:23 WBC RBC 2.92 L Hgb 8.4 L Hct 26.7 L RDW 16.6 H Plt Count Lymph % (Auto) [place] % (Auto) Lymph # (Auto) [place] # (Auto) Seg Neutrophils % Seg Neuts % (Manual) Lymphocytes % (Manual) Nucleated RBC % Seg Neutrophils # Seg Neutrophils # Man Lymphocytes # (Manual) PT INR APTT Heparin Anti-Xa Level ABG pH ABG pO2 74.2 L ABG HCO3 27.8 H ABG Base Excess ABG Hemoglobin 8.7 L Oxyhemoglobin 94.5 L Sodium Potassium Chloride Carbon Dioxide BUN Creatinine Glucose POC Glucose 140 H Phosphorus Magnesium Alkaline Phosphatase Troponin T Total Protein Albumin Free T4 Fluid Total Protein Crossmatch 05/02/22 05/02/22 05/02/22 05:54 05:54 05:54 WBC RBC 2.85 L Hgb 8.3 L Hct 25.9 L RDW 16.5 H Plt Count Lymph % (Auto) [place] % (Auto) Lymph # (Auto) [place] # (Auto) Seg Neutrophils % Seg Neuts % (Manual) Lymphocytes % (Manual) Nucleated RBC % Seg Neutrophils # Seg Neutrophils # Man Lymphocytes # (Manual) PT INR APTT Heparin Anti-Xa Level ABG pH ABG pO2 ABG HCO3 ABG Base Excess ABG Hemoglobin Oxyhemoglobin Sodium 130 L 128 L Potassium Chloride 90.9 L 90.0 L Carbon Dioxide BUN 49 H 49 H Creatinine 3.7 H 3.8 H Glucose 191 H 184 H POC Glucose Phosphorus Magnesium Alkaline Phosphatase Troponin T Total Protein Albumin Free T4 Fluid Total Protein Crossmatch 05/02/22 05/03/22 05/03/22 14:15 04:24 04:24 WBC RBC 2.71 L Hgb 7.8 L Hct 24.8 L RDW 16.6 H Plt Count Lymph % (Auto) [place] % (Auto) Lymph # (Auto) [place] # (Auto) Seg Neutrophils % Seg Neuts % (Manual) Lymphocytes % (Manual) Nucleated RBC % Seg Neutrophils # Seg Neutrophils # Man Lymphocytes # (Manual) PT INR APTT 39.4 H Heparin Anti-Xa Level ABG pH ABG pO2 ABG HCO3 29.1 H ABG Base Excess 4.3 H ABG Hemoglobin 8.4 L Oxyhemoglobin 94.8 L Sodium Potassium Chloride Carbon Dioxide BUN Creatinine Glucose POC Glucose Phosphorus Magnesium Alkaline Phosphatase Troponin T Total Protein Albumin Free T4 Fluid Total Protein Crossmatch 05/03/22 05/03/22 05/03/22 04:24 15:17 17:30 WBC RBC Hgb Hct RDW Plt Count Lymph % (Auto) [place] % (Auto) Lymph # (Auto) [place] # (Auto) Seg Neutrophils % Seg Neuts % (Manual) Lymphocytes % (Manual) Nucleated RBC % Seg Neutrophils # Seg Neutrophils # Man Lymphocytes # (Manual) PT INR APTT Heparin Anti-Xa Level ABG pH 7.577 H ABG pO2 140.4 H ABG HCO3 26.4 H ABG Base Excess 4.0 H ABG Hemoglobin 5.4 L Oxyhemoglobin Sodium 132 L Potassium Chloride 93.0 L Carbon Dioxide BUN 31 H Creatinine 2.8 H Glucose 119 H POC Glucose 60 L Phosphorus 2.10 L Magnesium Alkaline Phosphatase Troponin T Total Protein Albumin Free T4 Fluid Total Protein Crossmatch 05/03/22 05/04/22 05/04/22 23:33 04:26 04:26 WBC 16.0 H RBC 2.39 L Hgb 6.9 L Hct 21.4 L RDW 15.8 H Plt Count Lymph % (Auto) [place] % (Auto) Lymph # (Auto) [place] # (Auto) Seg Neutrophils % Seg Neuts % (Manual) Lymphocytes % (Manual) Nucleated RBC % Seg Neutrophils # Seg Neutrophils # Man Lymphocytes # (Manual) PT INR APTT Heparin Anti-Xa Level ABG pH ABG pO2 ABG HCO3 ABG Base Excess ABG Hemoglobin Oxyhemoglobin Sodium 133 L Potassium Chloride 94.8 L Carbon Dioxide BUN 34 H Creatinine 3.5 H Glucose 175 H POC Glucose 106 H Phosphorus Magnesium Alkaline Phosphatase Troponin T Total Protein Albumin Free T4 Fluid Total Protein Crossmatch 05/04/22 05/04/22 05/04/22 04:26 05:30 05:40 WBC RBC Hgb Hct RDW Plt Count Lymph % (Auto) [place] % (Auto) Lymph # (Auto) [place] # (Auto) Seg Neutrophils % Seg Neuts % (Manual) Lymphocytes % (Manual) Nucleated RBC % Seg Neutrophils # Seg Neutrophils # Man Lymphocytes # (Manual) PT 17.6 H INR 1.29 H APTT Heparin Anti-Xa Level ABG pH 7.547 H ABG pO2 141.7 H ABG HCO3 27.2 H ABG Base Excess 5.3 H ABG Hemoglobin 6.9 L Oxyhemoglobin Sodium Potassium Chloride Carbon Dioxide BUN Creatinine Glucose POC Glucose Phosphorus Magnesium Alkaline Phosphatase Troponin T Total Protein Albumin Free T4 Fluid Total Protein Crossmatch See Detail 05/04/22 05/04/22 05/04/22 05:41 12:55 18:10 WBC RBC Hgb Hct RDW Plt Count Lymph % (Auto) [place] % (Auto) Lymph # (Auto) [place] # (Auto) Seg Neutrophils % Seg Neuts % (Manual) Lymphocytes % (Manual) Nucleated RBC % Seg Neutrophils # Seg Neutrophils # Man Lymphocytes # (Manual) PT INR APTT Heparin Anti-Xa Level ABG pH ABG pO2 ABG HCO3 ABG Base Excess ABG Hemoglobin Oxyhemoglobin Sodium Potassium Chloride Carbon Dioxide BUN Creatinine Glucose POC Glucose 177 H 141 H 143 H Phosphorus Magnesium Alkaline Phosphatase Troponin T Total Protein Albumin Free T4 Fluid Total Protein Crossmatch 05/05/22 05/05/22 05/05/22 00:05 04:20 04:20 WBC 12.8 H RBC 2.81 L Hgb 8.0 L Hct 24.8 L RDW 16.8 H Plt Count Lymph % (Auto) [place] % (Auto) Lymph # (Auto) [place] # (Auto) Seg Neutrophils % Seg Neuts % (Manual) 86.0 H Lymphocytes % (Manual) 4.0 L Nucleated RBC % 1.0 H Seg Neutrophils # Seg Neutrophils # Man 11.0 H Lymphocytes # (Manual) 0.5 L PT INR APTT Heparin Anti-Xa Level ABG pH ABG pO2 ABG HCO3 ABG Base Excess ABG Hemoglobin Oxyhemoglobin Sodium 130 L Potassium 3.3 L Chloride 94.0 L Carbon Dioxide BUN 24 H Creatinine 2.3 H Glucose 163 H POC Glucose 163 H Phosphorus 1.50 L Magnesium Alkaline Phosphatase Troponin T Total Protein Albumin Free T4 Fluid Total Protein Crossmatch 05/05/22 05/05/22 05/05/22 05:18 10:06 12:11 WBC RBC Hgb Hct RDW Plt Count Lymph % (Auto) [place] % (Auto) Lymph # (Auto) [place] # (Auto) Seg Neutrophils % Seg Neuts % (Manual) Lymphocytes % (Manual) Nucleated RBC % Seg Neutrophils # Seg Neutrophils # Man Lymphocytes # (Manual) PT INR APTT Heparin Anti-Xa Level ABG pH ABG pO2 91.7 H ABG HCO3 27.4 H ABG Base Excess ABG Hemoglobin 11.4 L Oxyhemoglobin Sodium Potassium Chloride Carbon Dioxide BUN Creatinine Glucose POC Glucose 163 H 186 H Phosphorus Magnesium Alkaline Phosphatase Troponin T Total Protein Albumin Free T4 Fluid Total Protein Crossmatch 05/05/22 05/06/22 05/06/22 16:29 04:45 04:59 WBC RBC Hgb Hct RDW Plt Count Lymph % (Auto) [place] % (Auto) Lymph # (Auto) [place] # (Auto) Seg Neutrophils % Seg Neuts % (Manual) Lymphocytes % (Manual) Nucleated RBC % Seg Neutrophils # Seg Neutrophils # Man Lymphocytes # (Manual) PT INR APTT Heparin Anti-Xa Level ABG pH ABG pO2 112.7 H ABG HCO3 ABG Base Excess ABG Hemoglobin 7.8 L Oxyhemoglobin Sodium Potassium Chloride Carbon Dioxide BUN Creatinine Glucose POC Glucose 170 H 146 H Phosphorus Magnesium Alkaline Phosphatase Troponin T Total Protein Albumin Free T4 Fluid Total Protein Crossmatch 05/06/22 05/06/22 05/06/22 05:02 05:02 11:34 WBC RBC 2.78 L Hgb 7.9 L Hct 25.1 L RDW 16.7 H Plt Count 119 L Lymph % (Auto) [place] % (Auto) Lymph # (Auto) [place] # (Auto) Seg Neutrophils % Seg Neuts % (Manual) Lymphocytes % (Manual) Nucleated RBC % Seg Neutrophils # Seg Neutrophils # Man Lymphocytes # (Manual) PT INR APTT Heparin Anti-Xa Level ABG pH ABG pO2 ABG HCO3 ABG Base Excess ABG Hemoglobin Oxyhemoglobin Sodium 135 L Potassium 3.3 L Chloride 97.9 L Carbon Dioxide BUN 30 H Creatinine 2.7 H Glucose 148 H POC Glucose 130 H Phosphorus 1.50 L Magnesium Alkaline Phosphatase Troponin T Total Protein Albumin Free T4 Fluid Total Protein Crossmatch 05/06/22 05/06/22 05/07/22 16:48 23:34 04:15 WBC RBC 2.95 L Hgb 8.4 L Hct 26.7 L RDW 16.7 H Plt Count 112 L Lymph % (Auto) [place] % (Auto) Lymph # (Auto) [place] # (Auto) Seg Neutrophils % Seg Neuts % (Manual) Lymphocytes % (Manual) Nucleated RBC % Seg Neutrophils # Seg Neutrophils # Man Lymphocytes # (Manual) PT INR APTT Heparin Anti-Xa Level ABG pH ABG pO2 ABG HCO3 ABG Base Excess ABG Hemoglobin Oxyhemoglobin Sodium Potassium Chloride Carbon Dioxide BUN Creatinine Glucose POC Glucose 121 H 145 H Phosphorus Magnesium Alkaline Phosphatase Troponin T Total Protein Albumin Free T4 Fluid Total Protein Crossmatch 05/07/22 05/07/22 05/07/22 04:15 05:26 11:08 WBC RBC Hgb Hct RDW Plt Count Lymph % (Auto) [place] % (Auto) Lymph # (Auto) [place] # (Auto) Seg Neutrophils % Seg Neuts % (Manual) Lymphocytes % (Manual) Nucleated RBC % Seg Neutrophils # Seg Neutrophils # Man Lymphocytes # (Manual) PT INR APTT Heparin Anti-Xa Level ABG pH ABG pO2 ABG HCO3 ABG Base Excess ABG Hemoglobin Oxyhemoglobin Sodium 131 L Potassium 3.4 L Chloride 95.3 L Carbon Dioxide BUN 28 H Creatinine 2.5 H Glucose 140 H POC Glucose 136 H 136 H Phosphorus 1.20 L Magnesium Alkaline Phosphatase Troponin T Total Protein Albumin Free T4 Fluid Total Protein Crossmatch 05/07/22 05/07/22 05/08/22 17:26 23:23 04:06 WBC RBC 2.87 L Hgb 8.2 L Hct 25.8 L RDW 16.2 H Plt Count 118 L Lymph % (Auto) [place] % (Auto) Lymph # (Auto) [place] # (Auto) Seg Neutrophils % Seg Neuts % (Manual) Lymphocytes % (Manual) Nucleated RBC % Seg Neutrophils # Seg Neutrophils # Man Lymphocytes # (Manual) PT INR APTT Heparin Anti-Xa Level ABG pH ABG pO2 ABG HCO3 ABG Base Excess ABG Hemoglobin Oxyhemoglobin Sodium Potassium Chloride Carbon Dioxide BUN Creatinine Glucose POC Glucose 135 H 123 H Phosphorus Magnesium Alkaline Phosphatase Troponin T Total Protein Albumin Free T4 Fluid Total Protein Crossmatch 05/08/22 05/08/22 05/08/22 04:06 04:40 11:31 WBC RBC Hgb Hct RDW Plt Count Lymph % (Auto) [place] % (Auto) Lymph # (Auto) [place] # (Auto) Seg Neutrophils % Seg Neuts % (Manual) Lymphocytes % (Manual) Nucleated RBC % Seg Neutrophils # Seg Neutrophils # Man Lymphocytes # (Manual) PT INR APTT Heparin Anti-Xa Level ABG pH 7.482 H ABG pO2 103.9 H ABG HCO3 ABG Base Excess ABG Hemoglobin 8.1 L Oxyhemoglobin Sodium 132 L Potassium 3.3 L Chloride 93.2 L Carbon Dioxide BUN 36 H Creatinine 2.9 H Glucose 145 H POC Glucose 138 H Phosphorus 2.00 L D Magnesium Alkaline Phosphatase Troponin T Total Protein Albumin Free T4 Fluid Total Protein Crossmatch 05/08/22 05/08/22 05/08/22 16:11 21:00 23:46 WBC RBC Hgb Hct RDW Plt Count Lymph % (Auto) [place] % (Auto) Lymph # (Auto) [place] # (Auto) Seg Neutrophils % Seg Neuts % (Manual) Lymphocytes % (Manual) Nucleated RBC % Seg Neutrophils # Seg Neutrophils # Man Lymphocytes # (Manual) PT INR APTT Heparin Anti-Xa Level ABG pH ABG pO2 68.8 L ABG HCO3 27.0 H ABG Base Excess ABG Hemoglobin 8.4 L Oxyhemoglobin 93.4 L Sodium Potassium Chloride Carbon Dioxide BUN Creatinine Glucose POC Glucose 134 H 142 H Phosphorus Magnesium Alkaline Phosphatase Troponin T Total Protein Albumin Free T4 Fluid Total Protein Crossmatch 05/09/22 05/09/22 05/09/22 04:25 04:25 11:29 WBC RBC 2.86 L Hgb 8.0 L Hct 25.7 L RDW 16.2 H Plt Count 101 L Lymph % (Auto) [place] % (Auto) Lymph # (Auto) [place] # (Auto) Seg Neutrophils % Seg Neuts % (Manual) Lymphocytes % (Manual) Nucleated RBC % Seg Neutrophils # Seg Neutrophils # Man Lymphocytes # (Manual) PT INR APTT Heparin Anti-Xa Level ABG pH ABG pO2 ABG HCO3 ABG Base Excess ABG Hemoglobin Oxyhemoglobin Sodium 132 L Potassium 3.5 L Chloride 93.7 L Carbon Dioxide BUN 42 H Creatinine 3.0 H Glucose 145 H POC Glucose 180 H Phosphorus Magnesium Alkaline Phosphatase Troponin T Total Protein Albumin Free T4 Fluid Total Protein Crossmatch 05/09/22 05/09/22 05/10/22 16:19 Unknown 05:55 WBC RBC Hgb Hct RDW Plt Count Lymph % (Auto) [place] % (Auto) Lymph # (Auto) [place] # (Auto) Seg Neutrophils % Seg Neuts % (Manual) Lymphocytes % (Manual) Nucleated RBC % Seg Neutrophils # Seg Neutrophils # Man Lymphocytes # (Manual) PT INR APTT Heparin Anti-Xa Level ABG pH ABG pO2 ABG HCO3 ABG Base Excess ABG Hemoglobin Oxyhemoglobin Sodium Potassium Chloride Carbon Dioxide BUN Creatinine Glucose POC Glucose 143 H 164 H Phosphorus Magnesium Alkaline Phosphatase Troponin T Total Protein Albumin Free T4 Fluid Total Protein < 3.0 L Crossmatch 05/10/22 05/11/22 05/11/22 16:37 00:56 05:13 WBC RBC Hgb Hct RDW Plt Count Lymph % (Auto) [place] % (Auto) Lymph # (Auto) [place] # (Auto) Seg Neutrophils % Seg Neuts % (Manual) Lymphocytes % (Manual) Nucleated RBC % Seg Neutrophils # Seg Neutrophils # Man Lymphocytes # (Manual) PT INR APTT Heparin Anti-Xa Level ABG pH ABG pO2 ABG HCO3 ABG Base Excess ABG Hemoglobin Oxyhemoglobin Sodium Potassium Chloride Carbon Dioxide BUN Creatinine Glucose POC Glucose 130 H 179 H 139 H Phosphorus Magnesium Alkaline Phosphatase Troponin T Total Protein Albumin Free T4 Fluid Total Protein Crossmatch 05/11/22 05/11/22 05/12/22 18:11 23:53 04:11 WBC 18.0 H RBC 2.56 L Hgb 7.2 L Hct 23.2 L RDW 16.4 H Plt Count Lymph % (Auto) 7.8 L [place] % (Auto) 14.2 H Lymph # (Auto) [place] # (Auto) 2.5 H Seg Neutrophils % 77.1 H Seg Neuts % (Manual) Lymphocytes % (Manual) Nucleated RBC % Seg Neutrophils # 13.9 H Seg Neutrophils # Man Lymphocytes # (Manual) PT INR APTT Heparin Anti-Xa Level ABG pH ABG pO2 ABG HCO3 ABG Base Excess ABG Hemoglobin Oxyhemoglobin Sodium Potassium Chloride Carbon Dioxide BUN Creatinine Glucose POC Glucose 166 H 115 H Phosphorus Magnesium Alkaline Phosphatase Troponin T Total Protein Albumin Free T4 Fluid Total Protein Crossmatch 05/12/22 05/12/2205/12/22 04:11 05:03 06:00 WBC RBC Hgb Hct RDW Plt Count Lymph % (Auto) [place] % (Auto) Lymph # (Auto) [place] # (Auto) Seg Neutrophils % Seg Neuts % (Manual) Lymphocytes % (Manual) Nucleated RBC % Seg Neutrophils # Seg Neutrophils # Man Lymphocytes # (Manual) PT 15.4 H INR APTT Heparin Anti-Xa Level ABG pH ABG pO2 ABG HCO3 ABG Base Excess ABG Hemoglobin Oxyhemoglobin Sodium 133 L Potassium Chloride 94.1 L Carbon Dioxide BUN 29 H Creatinine 2.4 H Glucose 145 H POC Glucose 122 H Phosphorus Magnesium Alkaline Phosphatase 332 H Troponin T Total Protein 4.8 L Albumin 2.0 L Free T4 Fluid Total Protein Crossmatch 05/12/22 05/12/22 05/12/22 06:07 11:36 16:44 WBC RBC Hgb Hct RDW Plt Count Lymph % (Auto) [place] % (Auto) Lymph # (Auto) [place] # (Auto) Seg Neutrophils % Seg Neuts % (Manual) Lymphocytes % (Manual) Nucleated RBC % Seg Neutrophils # Seg Neutrophils # Man Lymphocytes # (Manual) PT INR APTT Heparin Anti-Xa Level ABG pH ABG pO2 ABG HCO3 ABG Base Excess ABG Hemoglobin Oxyhemoglobin Sodium Potassium Chloride Carbon Dioxide BUN Creatinine Glucose POC Glucose 143 H 121 H Phosphorus Magnesium Alkaline Phosphatase Troponin T Total Protein Albumin Free T4 Fluid Total Protein Crossmatch See Detail 05/12/22 05/12/22 05/13/22 18:00 23:06 04:00 WBC 16.6 H RBC 3.04 L Hgb 8.7 L 8.8 L Hct 27.1 L 26.9 L RDW 15.3 H Plt Count Lymph % (Auto) [place] % (Auto) Lymph # (Auto) [place] # (Auto) Seg Neutrophils % Seg Neuts % (Manual) Lymphocytes % (Manual) Nucleated RBC % Seg Neutrophils # Seg Neutrophils # Man Lymphocytes # (Manual) PT INR APTT Heparin Anti-Xa Level ABG pH ABG pO2 ABG HCO3 ABG Base Excess ABG Hemoglobin Oxyhemoglobin Sodium Potassium Chloride Carbon Dioxide BUN Creatinine Glucose POC Glucose 129 H Phosphorus Magnesium Alkaline Phosphatase Troponin T Total Protein Albumin Free T4 Fluid Total Protein Crossmatch 05/13/22 05/13/22 05/13/22 04:00 05:00 12:17 WBC RBC Hgb Hct RDW Plt Count Lymph % (Auto) [place] % (Auto) Lymph # (Auto) [place] # (Auto) Seg Neutrophils % Seg Neuts % (Manual) Lymphocytes % (Manual) Nucleated RBC % Seg Neutrophils # Seg Neutrophils # Man Lymphocytes # (Manual) PT INR APTT Heparin Anti-Xa Level ABG pH ABG pO2 ABG HCO3 ABG Base Excess ABG Hemoglobin Oxyhemoglobin Sodium 131 L Potassium Chloride 93.2 L Carbon Dioxide BUN 38 H Creatinine 2.7 H Glucose 145 H POC Glucose 136 H 143 H Phosphorus Magnesium Alkaline Phosphatase Troponin T Total Protein Albumin Free T4 Fluid Total Protein Crossmatch 05/13/22 05/14/22 05/14/22 18:08 00:22 04:30 WBC RBC Hgb Hct RDW Plt Count Lymph % (Auto) [place] % (Auto) Lymph # (Auto) [place] # (Auto) Seg Neutrophils % Seg Neuts % (Manual) Lymphocytes % (Manual) Nucleated RBC % Seg Neutrophils # Seg Neutrophils # Man Lymphocytes # (Manual) PT INR APTT Heparin Anti-Xa Level ABG pH ABG pO2 ABG HCO3 ABG Base Excess ABG Hemoglobin Oxyhemoglobin Sodium Potassium Chloride Carbon Dioxide BUN Creatinine Glucose POC Glucose 142 H 147 H 122 H Phosphorus Magnesium Alkaline Phosphatase Troponin T Total Protein Albumin Free T4 Fluid Total Protein Crossmatch 05/14/22 05/14/22 05/14/22 05:36 11:15 11:58 WBC 13.4 H RBC 2.83 L Hgb 8.1 L Hct 25.1 L RDW Plt Count Lymph % (Auto) [place] % (Auto) Lymph # (Auto) [place] # (Auto) Seg Neutrophils % Seg Neuts % (Manual) Lymphocytes % (Manual) Nucleated RBC % Seg Neutrophils # Seg Neutrophils # Man Lymphocytes # (Manual) PT INR APTT Heparin Anti-Xa Level ABG pH 7.479 H ABG pO2 ABG HCO3 30.6 H ABG Base Excess 6.5 H ABG Hemoglobin 9.0 L Oxyhemoglobin Sodium Potassium Chloride Carbon Dioxide BUN Creatinine Glucose POC Glucose 167 H Phosphorus Magnesium Alkaline Phosphatase Troponin T Total Protein Albumin Free T4 Fluid Total Protein Crossmatch 05/14/22 05/15/22 05/15/22 18:04 00:28 11:13 WBC RBC Hgb Hct RDW Plt Count Lymph % (Auto) [place] % (Auto) Lymph # (Auto) [place] # (Auto) Seg Neutrophils % Seg Neuts % (Manual) Lymphocytes % (Manual) Nucleated RBC % Seg Neutrophils # Seg Neutrophils # Man Lymphocytes # (Manual) PT INR APTT Heparin Anti-Xa Level ABG pH ABG pO2 ABG HCO3 ABG Base Excess ABG Hemoglobin Oxyhemoglobin Sodium 133 L Potassium Chloride 95.8 L Carbon Dioxide BUN 36 H Creatinine 3.0 H Glucose 110 H POC Glucose 134 H 135 H Phosphorus Magnesium Alkaline Phosphatase Troponin T Total Protein Albumin Free T4 Fluid Total Protein Crossmatch 05/16/22 05/16/22 05/16/22 01:17 04:30 05:19 WBC RBC Hgb Hct RDW Plt Count Lymph % (Auto) [place] % (Auto) Lymph # (Auto) [place] # (Auto) Seg Neutrophils % Seg Neuts % (Manual) Lymphocytes % (Manual) Nucleated RBC % Seg Neutrophils # Seg Neutrophils # Man Lymphocytes # (Manual) PT INR APTT Heparin Anti-Xa Level ABG pH 7.486 H ABG pO2 ABG HCO3 29.5 H ABG Base Excess 5.7 H ABG Hemoglobin 8.4 L Oxyhemoglobin Sodium Potassium Chloride Carbon Dioxide BUN Creatinine Glucose POC Glucose 133 H 161 H Phosphorus Magnesium Alkaline Phosphatase Troponin T Total Protein Albumin Free T4 Fluid Total Protein Crossmatch Allied health notes reviewed: RT
--- NOTE | 2022-05-19 13:29 | Electrocardiograph Report ---
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
== END 2022-05-16 16:36 | DRG 4 ==
LOC: ED 03:58 → CC1 09:55
PROVIDERS: ADMIT Internal Medicine; ATTEND Internal Medicine
PROC: 06HY33Z Insertion of Infusion Device into Lower Vein, Percutaneous Approach (ICD-10-PCS; 2022-04-19)
PROC: B54BZZA Ultrasonography of Right Lower Extremity Veins, Guidance (ICD-10-PCS; 2022-04-19)
PROC: 5A2204Z Restoration of Cardiac Rhythm, Single (ICD-10-PCS; 2022-04-19)
PROC: 5A1D70Z Performance of Urinary Filtration, Intermittent, Less than 6 Hours Per Day (ICD-10-PCS; 2022-04-22)
PROC: 30233N1 Transfusion of Nonautologous Red Blood Cells into Peripheral Vein, Percutaneous Approach (ICD-10-PCS; 2022-04-25)
PROC: 5A1D70Z Performance of Urinary Filtration, Intermittent, Less than 6 Hours Per Day (ICD-10-PCS; 2022-04-25)
PROC: 06HY33Z Insertion of Infusion Device into Lower Vein, Percutaneous Approach (ICD-10-PCS; 2022-04-27)
PROC: B54BZZA Ultrasonography of Right Lower Extremity Veins, Guidance (ICD-10-PCS; 2022-04-27)
PROC: 5A1D70Z Performance of Urinary Filtration, Intermittent, Less than 6 Hours Per Day (ICD-10-PCS; 2022-04-27)
PROC: 5A1D70Z Performance of Urinary Filtration, Intermittent, Less than 6 Hours Per Day (ICD-10-PCS; 2022-04-29)
PROC: 5A0945A Assistance with Respiratory Ventilation, 24-96 Consecutive Hours, High Flow/Velocity Cannula (ICD-10-PCS; 2022-05-01)
PROC: 4A033R1 Measurement of Arterial Saturation, Peripheral, Percutaneous Approach (ICD-10-PCS; 2022-05-02)
PROC: 5A1D70Z Performance of Urinary Filtration, Intermittent, Less than 6 Hours Per Day (ICD-10-PCS; 2022-05-02)
PROC: 5A1955Z Respiratory Ventilation, Greater than 96 Consecutive Hours (ICD-10-PCS; principal; 2022-05-03)
PROC: 0BH17EZ Insertion of Endotracheal Airway into Trachea, Via Natural or Artificial Opening (ICD-10-PCS; 2022-05-03)
PROC: 0BC38ZZ Extirpation of Matter from Right Main Bronchus, Via Natural or Artificial Opening Endoscopic (ICD-10-PCS; 2022-05-03)
PROC: 0DH63UZ Insertion of Feeding Device into Stomach, Percutaneous Approach (ICD-10-PCS; 2022-05-04)
PROC: 5A1D70Z Performance of Urinary Filtration, Intermittent, Less than 6 Hours Per Day (ICD-10-PCS; 2022-05-04)
PROC: 5A1D70Z Performance of Urinary Filtration, Intermittent, Less than 6 Hours Per Day (ICD-10-PCS; 2022-05-06)
PROC: 0W993ZZ Drainage of Right Pleural Cavity, Percutaneous Approach (ICD-10-PCS; 2022-05-09)
PROC: 5A1D70Z Performance of Urinary Filtration, Intermittent, Less than 6 Hours Per Day (ICD-10-PCS; 2022-05-09)
PROC: 5A1D70Z Performance of Urinary Filtration, Intermittent, Less than 6 Hours Per Day (ICD-10-PCS; 2022-05-11)
PROC: 06HY33Z Insertion of Infusion Device into Lower Vein, Percutaneous Approach (ICD-10-PCS; 2022-05-12)
PROC: 5A1D70Z Performance of Urinary Filtration, Intermittent, Less than 6 Hours Per Day (ICD-10-PCS; 2022-05-14)
PROC: 0B113F4 Bypass Trachea to Cutaneous with Tracheostomy Device, Percutaneous Approach (ICD-10-PCS; 2022-05-15)
PROC: 0BJ08ZZ Inspection of Tracheobronchial Tree, Via Natural or Artificial Opening Endoscopic (ICD-10-PCS; 2022-05-15)
PROC: 5A1D70Z Performance of Urinary Filtration, Intermittent, Less than 6 Hours Per Day (ICD-10-PCS; 2022-05-16)
DX: A41.9 Sepsis, unspecified organism (principal); J96.01 Acute respiratory failure with hypoxia; I21.A1 Myocardial infarction type 2; G93.41 Metabolic encephalopathy; N18.6 End stage renal disease; R65.21 Severe sepsis with septic shock; J69.0 Pneumonitis due to inhalation of food and vomit; J15.212 Pneumonia due to Methicillin resistant Staphylococcus aureus; I47.1 Supraventricular tachycardia; E44.0 Moderate protein-calorie malnutrition; I12.0 Hypertensive chronic kidney disease with stage 5 chronic kidney disease or end stage renal disease; N25.81 Secondary hyperparathyroidism of renal origin; I42.8 Other cardiomyopathies; I82.891 Chronic embolism and thrombosis of other specified veins; J98.11 Atelectasis; Z20.822 Contact with and (suspected) exposure to COVID-19; G40.909 Epilepsy, unspecified, not intractable, without status epilepticus; F31.9 Bipolar disorder, unspecified; Z68.21 Body mass index [BMI] 21.0-21.9, adult; K21.9 Gastro-esophageal reflux disease without esophagitis; F01.50 Vascular dementia, unspecified severity, without behavioral disturbance, psychotic disturbance, mood disturbance, and anxiety; M19.90 Unspecified osteoarthritis, unspecified site; F20.9 Schizophrenia, unspecified; F41.9 Anxiety disorder, unspecified; E03.8 Other specified hypothyroidism; D63.1 Anemia in chronic kidney disease; E87.5 Hyperkalemia; I48.91 Unspecified atrial fibrillation; I67.2 Cerebral atherosclerosis; R13.19 Other dysphagia; E87.6 Hypokalemia; E83.39 Other disorders of phosphorus metabolism; Y84.6 Urinary catheterization as the cause of abnormal reaction of the patient, or of later complication, without mention of misadventure at the time of the procedure; Y92.89 Other specified places as the place of occurrence of the external cause; R33.9 Retention of urine, unspecified; Z88.0 Allergy status to penicillin; Z88.8 Allergy status to other drugs, medicaments and biological substances; Z91.018 Allergy to other foods; Z90.710 Acquired absence of both cervix and uterus
CPT/HCPCS: 32555; 36415; 36430; 36600; 70450; 71045; 71275; 74018; 76604; 80048; 80053; 80061; 80074; 80202; 80307; 80320; 81001; 82140; 82533; 82550; 82803; 82962; 83605; 83615; 83735; 84100; 84145; 84160; 84439; 84443; 84484; 85007; 85014; 85018; 85025; 85027; 85049; 85520; 85610; 85730; 86022; 86850; 86900; 86901; 86920; 87040; 87076; 87116; 87186; 88112; 88305; 89051; 93005; 94002; 94003; 94640; 94667; 94668; 94669; 94760; 99284; G0378; J1815; J2354; J3490; J7060; G0480; J0153; J0282; J0690; J0692; J0885; J1644; J2270; J2370; J2704; J2997; J3010; J3370; J3430; J3480; J7030; J7040; J7050; P9016; P9047; Q9967; U0003